=== PATIENT | female | born 1950 | race Two or more races ===

== ENCOUNTER 2017-05-12 09:41 | Inpatient (IN) | payer MEDICARE, MEDICAID ==
[2017-05-12] VITALS (22 sets, daily range): BP systolic 142–211; BP diastolic 66–101
[~2017-05-12] VITALS: Ht 152.4 cm; Wt 75.3 kg
[2017-05-12] MEDS ORDERED: Nitroglycerin 50mg/250ml btl 250 ML IV ONE ×2 (10:00)
--- NOTE | 2017-05-12 10:00 | Emergency Room Report ---
History of Present Illness General Chief Complaint: Dyspnea/Respdistress Source: Patient, EMS Present Illness HPI 67-year-old female with pmhx of HTN, DM, CHF p/w SOB for 2 days. Per EMS patient was hypoxic at 84 and room air, 100% with nonrebreather SOB was gradual in onset, occurs both at rest and on exertion, worsened with laying flat. Associated with b/l lower extremity edema for a long time. Denies chest pain. Patient has experienced this SOB in the past and states it feels similar to previous CHF exacerbations. Patient takes 40 mg of Lasix daily and has been compliant with medications. Denies fever, chills, cough, n/v/d. Unknown last echocardiogram EMS gave 6 nitroglycerin in the field, patient feels better Allergies: Coded Allergies: No Known Allergies (Unverified , 05/12/17) Patient History Past Medical History: see triage record Past Surgical History: none Pertinent Family History: none Reviewed Nursing Documentation: PMH: Agreed, PSxH: Agreed Nursing Documentation-PMH Past Medical History: No History, Except For Hx Cardiac Problems: Yes - CHF Hx Diabetes: Yes Review of Systems All Other Systems: negative except mentioned in HPI Physical Exam Vital Signs Date Time Temp Pulse Resp B/P (MAP) Pulse Ox O2 Delivery O2 Flow Rate FiO2 05/12/17 09:35 98.2 65 24 190/62 91 Non-Rebreather 15.0 Sp02 EP Interpretation: reviewed, abnormal - 84 on room air, 91 on 100% nonrebreather General Appearance: alert, GCS 15, non-toxic, other - Middle aged female, appears short of breath, speaking in 3-4 word sentences Head: normocephalic, atraumatic Eyes: bilateral eye normal inspection, bilateral eye PERRL, bilateral eye EOMI ENT: normal ENT inspection, normal pharynx, normal voice, moist mucus membranes Neck: normal inspection, full range of motion, supple Respiratory: no retraction, no wheezing, speaking full sentences, other - Decreased breath sounds/crackles bilateral lung bases, tachypnea, chest symmetrical Cardiovascular #1: normal inspection, regular rate, rhythm, no edema, normal capillary refill Cardiovascular #2: 2+ radial (R), 2+ radial (L) Gastrointestinal: normal inspection, non tender, soft, non-distended, no guarding Musculoskeletal: back normal, normal range of motion, non-tender, swelling, other - 2+ pitting edema bilateral lower extremities Neurologic: normal inspection, alert, oriented x3, responsive, motor strength/ tone normal, sensory intact, normal gait, speech normal Psychiatric: normal inspection, judgement/insight normal, memory normal Skin: normal inspection, normal color, no rash, warm/dry, well hydrated, normal turgor Procedures Critical Care Time Critical Care Time 40 minutes of CC time 59-year-old female with CHF complaining of shortness of breath VS: Toxic and tachypnea Airway patent PLAN: IV access, labs including troponin, nitro drip, BiPAP Anticipate admission to ICU CC time also includes review of labs, review of EMR, d/w hospitalist CC could include dosing of pressors, additional Abx CC time does not include procedures Medical Decision Making Diagnostic Impression: Primary Impression: Acute exacerbation of CHF (congestive heart failure) Additional Impressions: Respiratory failure with hypoxia Renal failure Anemia ER Course 67-year-old female with pmhx of HTN, DM, CHF p/w SOB for 2 days. DDX: CHF exacerbation, ACS, pneumonia, asthma/copd Plan: IV access, surveillance system monitor, O2 nasal cannula obtain basic labs including blood gas, troponin, BNP Nitro, lasix, Will consider BIPAP for persistent or worsening respiratory status Anticipate admission ER course: Patient is hypertensive at 190 systolic, nitro drip started BiPAP started upon arrival Patient has remained on the monitor. Patients condition remains critical Disposition: Patient to be admitted to ICU Patient requires inpatient admission for close monitoring of respiratory status/ continuation of BIPAP, further workup including serial troponin and EKGs, possible additional diuresis and monitoring of electrolytes. D/w hospitalist Dr Faustin who has accepted patient for admission Please note that this Emergency Department Report was dictated using [employer] technology software, occasionally this can lead to erroneous entry secondary to interpretation by the dictation equipment. Chest X-ray CXR: Ordered: Yes 1 view Indication: sob EP interpretation: Yes Interpretation: pulm vasc congestion, b/l pleural effusions Impression: CHF/volume overload Electronically signed by Lucinda Salcedo MD Laboratory Tests Test 05/12/17 09:50 05/12/17 11:00 White Blood Count 5.2 K/UL (4.8-10.8) Red Blood Count 2.54 M/UL (4.20-5.40) L Hemoglobin 7.8 G/DL (12.0-16.0) L Hematocrit 24.0 % (37.0-47.0) L Mean Corpuscular Volume 94 FL (80-99) Mean Corpuscular Hemoglobin 30.5 PG (27.0-31.0) Mean Corpuscular Hemoglobin Concent 32.4 G/DL (32.0-36.0) Red Cell Distribution Width 12.9 % (11.6-14.8) Platelet Count 179 K/UL (150-450) Mean Platelet Volume 6.4 FL (6.5-10.1) L Neutrophils (%) (Auto) % (45.0-75.0) Lymphocytes (%) (Auto) % (20.0-45.0) Monocytes (%) (Auto) % (1.0-10.0) Eosinophils (%) (Auto) % (0.0-3.0) Basophils (%) (Auto) % (0.0-2.0) Differential Total Cells Counted 100 Neutrophils % (Manual) 88 % (45-75) H Lymphocytes % (Manual) 6 % (20-45) L Monocytes % (Manual) 4 % (1-10) Eosinophils % (Manual) 1 % (0-3) Basophils % (Manual) 1 % (0-2) Band Neutrophils 0 % (0-8) Platelet Estimate Adequate Platelet Morphology Normal Red Blood Cell Morphology Normal Sodium Level 139 MMOL/L (136-145) Potassium Level 4.7 MMOL/L (3.5-5.1) Chloride Level 108 MMOL/L (98-107) H Carbon Dioxide Level 22 MMOL/L (21-32) Anion Gap 10 (5-15) Blood Urea Nitrogen 60 mg/dL (7-18) H Creatinine 3.5 MG/DL (0.55-1.30) H Estimate Glomerular Filtration Rate 13.0 mL/min (>60) Glucose Level 202 MG/DL (74-106) H Calcium Level 8.7 MG/DL (8.5-10.1) Total Bilirubin 0.5 MG/DL (0.2-1.0) Aspartate Amino Transferase (AST) 15 U/L (15-37) Alanine Aminotransferase (ALT) 12 U/L (12-78) Alkaline Phosphatase 117 U/L (46-116) H Total Creatine Kinase 191 U/L (26-308) Creatine Kinase MB 2.7 NG/ML (0.0-3.6) Creatine Kinase MB Relative Index 1.4 Troponin I 0.024 ng/mL (0.000-0.056) Pro-B-Type Natriuretic Peptide > 51815 (0-125) H Total Protein 7.0 G/DL (6.4-8.2) Albumin 3.0 G/DL (3.4-5.0) L Globulin 4.0 g/dL Albumin/Globulin Ratio 0.8 (1.0-2.7) L Arterial Blood pH 7.270 (7.350-7.450) Arterial Blood Partial Pressure CO2 46.8 mmHg (35.0-45.0) H Arterial Blood Partial Pressure O2 80.8 mmHg (75.0-100.0) Arterial Blood HCO3 21.4 mmol/L (22.0-26.0) L Arterial Blood Oxygen Saturation 93.6 % (92.0-98.0) Arterial Blood Base Excess -5.1 Faheem Test Positive EKG Diagnostic Results Rate: normal Rhythm: NSR ST Segments: other - T wave flattening I and V6 ASA given to the pt in ED: No Rhythm Strip Diag. Results EP Interpretation: yes Rate: 71 Rhythm: NSR, no PVC's, no ectopy Last Vital Signs Date Time Temp Pulse Resp B/P (MAP) Pulse Ox O2 Delivery O2 Flow Rate FiO2 05/12/17 09:35 98.2 65 24 190/62 91 Non-Rebreather 15.0 Disposition: ADMITTED INPATIENT Condition: Critical Lucinda Salcedo M.D. May 12, 2017 10:00
[2017-05-12 10:15] LABS: MEAN CORPUSCULAR HEMOGLOBIN 30.5 PG (27.0-31.0); MEAN CORPUSCULAR HGB CONC 32.4 G/DL (32.0-36.0); MEAN CORPUSCULAR VOLUME 94 FL (80-99); MEAN PLATELET VOLUME 6.4 FL (6.5-10.1); PLATELET COUNT 179 K/UL (150-450); RED BLOOD COUNT 2.54 M/UL (4.20-5.40); RED CELL DISTRIBUTION WIDTH 12.9 % (11.6-14.8); WHITE BLOOD COUNT 5.2 K/UL (4.8-10.8)
[2017-05-12 10:47] LABS: ALANINE AMINOTRANSFERASE 12 U/L (12-78); ALBUMIN/GLOBULIN RATIO 0.8 (1.0-2.7); ANION GAP 10 (5-15); ASPARTATE AMINO TRANSFERASE 15 U/L (15-37); CALCIUM 8.7 MG/DL (8.5-10.1); CARBON DIOXIDE 22 MMOL/L (21-32); CHLORIDE 108 MMOL/L (98-107); CKMB 2.7 NG/ML (0.0-3.6); CREATININE 3.5 MG/DL (0.55-1.30); POTASSIUM 4.7 MMOL/L (3.5-5.1); SODIUM 139 MMOL/L (136-145)
[2017-05-12 11:10] LABS: ABG BASE EXCESS -5.1; ABG PCO2 46.8 mmHg (35.0-45.0)
[2017-05-12 11:11] LABS: ABG ALLEN TEST POSITIVE
[2017-05-12] MEDS ORDERED: NORMODYNE300 MG ORAL (11:44)
[2017-05-12 11:45] LABS: BAND NEUTROPHILS % (MANUAL) 0 % (0-8); BASOPHILS % (MANUAL) 1 % (0-2); EOSINOPHILS % (MANUAL) 1 % (0-3); LYMPHOCYTES % (MANUAL) 6 % (20-45); NEUTROPHILS % (MANUAL) 88 % (45-75); PLATELET ESTIMATE ADEQUATE; PLATELET MORPHOLOGY NORMAL; TOTAL CELLS COUNTED 100
[2017-05-12] MEDS ORDERED: LIPITOR80 MG ORAL (11:49)
[2017-05-12] MEDS ORDERED: SYNTHROID137 MCG ORAL (11:49)
[2017-05-12] MEDS ORDERED: NEURONTIN300 MG ORAL (11:50)
[2017-05-12] MEDS ORDERED: FUROSEMIDE40 MG/5 ML ORAL (11:51)
[2017-05-12] MEDS ORDERED: LASIX20 M1 ORAL (11:52)
[2017-05-12] MEDS ORDERED: ISOSORBIDE MONO60 M1 PO (11:55)
[2017-05-12] MEDS ORDERED: HYDRALAZINE HCL25 M2 PO (11:56)
[2017-05-12] MEDS ORDERED: HydrALAZINE 25mg tab ORAL PRN ×2 (12:30→16:00)
--- NOTE | 2017-05-12 12:55 | Infectious Diseases Prog Note ---
Assessment/Plan Problems: (1) Pneumonia Assessment & Plan: complicated with B/L pleural effusion, will start cefepime and clindamycin empirically, and send sputum culture , and blood culture to rule out bacteremia (2) Acute exacerbation of CHF (congestive heart failure) Assessment & Plan: recommend diuresis , and cardiac eval (3) Respiratory failure with hypoxia Assessment & Plan: due to the above, BIBAP, recommend pulmonary consult , monitor ABG and CXR (4) Renal failure Assessment & Plan: unclear whether acute or chronic , recommend renal eval, avoid nephrotoxic meds , monitor UOP (5) UTI (urinary tract infection) Assessment & Plan: on cefepime already, will send urine culture Subjective Allergies: Coded Allergies: No Known Allergies (Unverified , 05/12/17) Objective Vital Signs Last 24 Hour Vital Signs Date Time Temp Pulse Resp B/P (MAP) Pulse Ox O2 Delivery O2 Flow Rate FiO2 05/12/17 12:05 98.3 69 15 205/84 100 Bi-pap 15.0 80 05/12/17 11:28 72 19 99 Facial 80 05/12/17 11:03 98.2 66 9 142/101 100 Bi-pap 15.0 80 05/12/17 10:42 98.2 67 18 195/84 100 Bi-pap 15.0 80 05/12/17 09:58 190/61 05/12/17 09:57 71 18 Bi-pap 80 05/12/17 09:52 70 17 100 Facial 80 05/12/17 09:45 68 15 Bi-pap 05/12/17 09:45 98.2 69 21 203/93 100 Bi-pap 05/12/17 09:35 98.2 65 24 190/62 91 Non-Rebreather 15.0 Height (Feet): 5 Weight (Pounds): 160 Laboratory Tests Test 05/12/17 09:50 05/12/17 11:00 White Blood Count 5.2 K/UL (4.8-10.8) Red Blood Count 2.54 M/UL (4.20-5.40) L Hemoglobin 7.8 G/DL (12.0-16.0) L Hematocrit 24.0 % (37.0-47.0) L Mean Corpuscular Volume 94 FL (80-99) Mean Corpuscular Hemoglobin 30.5 PG (27.0-31.0) Mean Corpuscular Hemoglobin Concent 32.4 G/DL (32.0-36.0) Red Cell Distribution Width 12.9 % (11.6-14.8) Platelet Count 179 K/UL (150-450) Mean Platelet Volume 6.4 FL (6.5-10.1) L Neutrophils (%) (Auto) % (45.0-75.0) Lymphocytes (%) (Auto) % (20.0-45.0) Monocytes (%) (Auto) % (1.0-10.0) Eosinophils (%) (Auto) % (0.0-3.0) Basophils (%) (Auto) % (0.0-2.0) Differential Total Cells Counted 100 Neutrophils % (Manual) 88 % (45-75) H Lymphocytes % (Manual) 6 % (20-45) L Monocytes % (Manual) 4 % (1-10) Eosinophils % (Manual) 1 % (0-3) Basophils % (Manual) 1 % (0-2) Band Neutrophils 0 % (0-8) Platelet Estimate Adequate Platelet Morphology Normal Red Blood Cell Morphology Normal Sodium Level 139 MMOL/L (136-145) Potassium Level 4.7 MMOL/L (3.5-5.1) Chloride Level 108 MMOL/L (98-107) H Carbon Dioxide Level 22 MMOL/L (21-32) Anion Gap 10 (5-15) Blood Urea Nitrogen 60 mg/dL (7-18) H Creatinine 3.5 MG/DL (0.55-1.30) H Estimat Glomerular Filtration Rate 13.0 mL/min (>60) Glucose Level 202 MG/DL (74-106) H Calcium Level 8.7 MG/DL (8.5-10.1) Total Bilirubin 0.5 MG/DL (0.2-1.0) Aspartate Amino Transf (AST/SGOT) 15 U/L (15-37) Alanine Aminotransferase (ALT/SGPT) 12 U/L (12-78) Alkaline Phosphatase 117 U/L (46-116) H Total Creatine Kinase 191 U/L (26-308) Creatine Kinase MB 2.7 NG/ML (0.0-3.6) Creatine Kinase MB Relative Index 1.4 Troponin I 0.024 ng/mL (0.000-0.056) Pro-B-Type Natriuretic Peptide > 50324 (0-125) H Total Protein 7.0 G/DL (6.4-8.2) Albumin 3.0 G/DL (3.4-5.0) L Globulin 4.0 g/dL Albumin/Globulin Ratio 0.8 (1.0-2.7) L Arterial Blood pH 7.270 (7.350-7.450) Arterial Blood Partial Pressure CO2 46.8 mmHg (35.0-45.0) H Arterial Blood Partial Pressure O2 80.8 mmHg (75.0-100.0) Arterial Blood HCO3 21.4 mmol/L (22.0-26.0) L Arterial Blood Oxygen Saturation 93.6 % (92.0-98.0) Arterial Blood Base Excess -5.1 Faheem Test Positive Current Medications Medications (Trade) Dose Ordered Sig/Toya Route PRN Reason Start Time Stop Time Status Last Admin Dose Admin Acetaminophen (Tylenol) 650 mg Q4H PRN ORAL Mild Pain/Temp > 100.5 05/12/17 12:30 06/11/17 12:29 UNV Atorvastatin Calcium (Lipitor) 80 mg BEDTIME ORAL 05/12/17 21:00 06/11/17 20:59 UNV Furosemide (Lasix) 20 mg BID ORAL 05/12/17 18:00 06/11/17 17:59 UNV Gabapentin (Neurontin) 300 mg BEDTIME ORAL 05/12/17 21:00 06/11/17 20:59 UNV Hydralazine HCl (Apresoline) 25 mg NEEDED ORAL 05/12/17 12:30 06/11/17 12:29 UNV Isosorbide Mononitrate (Imdur) 60 mg DAILY ORAL 05/13/17 09:00 06/12/17 08:59 UNV Labetalol HCl (Normodyne) 300 mg TID ORAL 05/12/17 13:00 06/11/17 12:59 UNV Levothyroxine Sodium (Synthroid) 137 mcg DAILY@0630 ORAL 05/13/17 06:30 06/12/17 06:29 UNV Nitroglycerin 250 ml @ 15 mls/hr ONCE ONCE IV 05/12/17 10:00 05/13/17 02:39 05/12/17 09:58 Anel Porras M.D. May 12, 2017 12:55
--- NOTE | 2017-05-12 13:40 | Consultation ---
Consult Note Assessment/Plan deict CHF resp failure HTN CKD DM HPLD hypothyroid AMADA CERVANTES May 12, 2017 13:40
--- NOTE | 2017-05-12 13:55 | Diagnostic Imaging Report ---
Indication: SOB Technique: One view of the chest Comparison: none Findings: The heart is markedly enlarged. There are bilateral pleural effusions, right greater than left. There is bilateral interstitial edema. Degenerative changes of the right shoulder are noted Impression: Findings compatible with congestive heart failure, with marked cardiomegaly, bilateral interstitial edema, and bilateral pleural effusions
[2017-05-12] MEDS: Clindamycin 600mg 50 ML IV SCH ×2 (14:25→22:14)
[2017-05-12] MEDS ORDERED: Cefepime HCl 2 GM in D5W 110 ML IVPB ONE (14:30)
--- NOTE | 2017-05-12 15:53 | Consultation ---
Consult Note Consult Note asked to eval for renal failure 67-year-old female with pmhx of HTN, DM, CHF p/w SOB for 2 days. Per EMS patient was hypoxic at 84 and room air, 100% with nonrebreather SOB was gradual in onset, occurs both at rest and on exertion, worsened with laying flat. Associated with b/l lower extremity edema for a long time. Denies chest pain. Patient has experienced this SOB in the past and states it feels similar to previous CHF exacerbations. Patient takes 40 mg of Lasix daily and has been compliant with medications. Denies fever, chills, cough, n/v/d. Unknown last echocardiogram EMS gave 6 nitroglycerin in the field, patient feels better Past Medical History: No History, Except For Hx Cardiac Problems: Yes - CHF Hx Diabetes: Yes discussed with daughter in room- examined- data reviewed Assessment/Plan status; Acute respiratory failure- likely CHF Renal failure, acute on Chronic Diabetic Nephropathy HTN Anemia Plan: Optimize cardiac and respiratory status giovanna keep BP and BS in check monitor renal parameters and Anemia OVLODYMYR Cortez May 12, 2017 15:53
[2017-05-12] MEDS: HydrALAZINE 25mg tab ORAL SCH ×2 (17:05→23:30)
[2017-05-12 17:48] LABS: APPEARANCE,URINE SLIGHTLY CLOUDY; KETONES,URINE NEGATIVE (NEGATIVE); LEUKOCYTE ESTERASE ,URINE 1+ (NEGATIVE); NITRITE,URINE NEGATIVE (NEGATIVE); PH,URINE 5 (4.5-8.0); PROTEIN,URINE 4+ (NEGATIVE); UROBILINOGEN,URINE NORMAL MG/DL (0.0-1.0)
[2017-05-12 17:55] LABS: AMORPHOUS SEDIMENT,UR FEW /LPF; BACTERIA,URINE MODERATE /HPF; SQUAMOUS EPITHELIAL CELL,UR OCCASIONAL /LPF (NONE/OCC)
[2017-05-12] MEDS: Nitroglycerin 50mg/250ml btl 250 ML IV SCH (19:24)
[2017-05-12] MEDS ORDERED: Morphine Sulfate 2mg/ml Inj IVP PRN (20:45)
[2017-05-12] MEDS: Atorvastatin 80mg tab ORAL SCH (20:49)
[2017-05-12] MEDS: Gabapentin 300 MG/6 ML Soln ORAL SCH (21:00)
--- NOTE | 2017-05-12 21:16 | Consultation ---
DATE OF CONSULTATION: INFECTIOUS DISEASES CONSULTATION REQUESTING PHYSICIAN: Makenna Daniel M..D REASON FOR CONSULTATION: Bilateral pulmonary infiltrate with pleural effusion, possible pneumonia. Recommendation for antibiotics therapy. HISTORY OF PRESENT ILLNESS: The patient is a 67-year-old female with past medical history significant for congestive heart failure and diabetes, was brought into [facility] emergency room for progressive shortness of breath and cough. The patient's symptom has been going on for the last two years. She was found to be hypoxemic via paramedics saturating 84% on room air, which improved to 100% with non-rebreathable mask. The patient complained of shortness of breath at rest and on exertion and it gets worse when she lay flat. She also developed lower extremity edema. The patient normally on Lasix 40 mg daily and has been compliant with her medication, but she is not sure why she developed this significant swelling and shortness of breath. She denied any fever or chills. She had cough, nonproductive. No nausea or vomiting. No diarrhea. No recent upper respiratory infection. No recent travel or sick contact. In the emergency room, chest x-ray showed bilateral pulmonary infiltration with pleural effusion, mainly due to congestive heart exacerbation, but could not rule out pneumonia. So, I was consulted by the primary provider for antibiotics treatment for possible pneumonia. PAST MEDICAL HISTORY: Significant for CHF, diabetes, and hypertension. PAST SURGICAL HISTORY: Negative. MEDICATIONS: The patient on Imdur, Synthroid, Lipitor, Neurontin, Lasix, labetalol, Tylenol, and hydralazine. ALLERGIES: No known drug allergy. SOCIAL HISTORY: She lives at home with family. 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 Denied using any drugs, tobacco, or alcohol. FAMILY HISTORY: Not contributory. REVIEW OF SYSTEMS: A 14-point of system reviewed were all negative apart from the one I mentioned above in my History and Physical. PHYSICAL EXAMINATION: GENERAL: Middle-aged female, obese, lying in bed, on BiPAP, in mild respiratory distress. VITAL SIGNS: Temperature 97.9 degrees, pulse 77, respirations 24, blood pressure 195/76, and pulse oximetry 100% on BiPAP with FiO2 of 80%. HEENT: Normocephalic and atraumatic. Pupils are reactive to light. Moist oral mucosa. No exudate. NECK: Supple. No lymphadenopathy. CARDIOVASCULAR: She is tachycardic. S1 and S2 normal. No murmur or gallop. LUNGS: She had diminished breathing sounds with crackles at the bases. Mildly tachypneic. ABDOMEN: Soft, obese, nontender, and nondistended. Positive bowel sounds. No hepatosplenomegaly. No ascites. EXTREMITIES: She had significant edema with right leg swelling worse than the left side. Pulse +1 distal pedal. SKIN: No rash or hives. LABORATORY AND DIAGNOSTIC DATA: Labs showed white count of 5.2, hemoglobin of 7.8 and platelet count of 179. BUN of 60 and creatinine of 3.5. AST of 15 and ALT of 12. Chest x-ray showed large heart with bilateral pleural effusion, right greater than left and bilateral interstitial edema. ASSESSMENT AND RECOMMENDATION: 1. Possible bilateral pneumonia, complicated with pleural effusion. We will start cefepime and clindamycin empiric treatment and send sputum culture and blood culture to rule out bacteremia. Continue oxygen and BiPAP for respiratory support. Monitor chest x-ray. 2. Acute exacerbation of congestive heart failure. Recommend diuresis and cardiac evaluation. 3. Acute respiratory failure with hypoxemia due to the above. Continue BiPAP. Recommend Pulmonary consult. Monitor ABG and chest x-ray. 4. Renal failure, unclear whether acute or chronic. Recommend renal evaluation. Avoid nephrotoxic medicine. Monitor urine output. Thank you for the consult. Infectious Diseases will continue to follow. Anel Porras M.D. DR: JESSICA JOB#: [id number] CC:
[2017-05-12 23:32] LABS: PATH BLOOD SMEAR/OMC SENT TO PATHOLOGIST
--- NOTE | 2017-05-12 23:46 | Consultation ---
DATE OF CONSULTATION: 05/12/2017 PULMONARY CONSULTATION CONSULTING PHYSICIAN: Phong Gusman M.D. ATTENDING PHYSICIAN: Makenna Daniel M.D. HISTORY OF PRESENT ILLNESS: This 67-year-old woman is admitted through the emergency department because of increasing shortness of breath. She had several days of shortness of breath. There is no high fever, cough, or sputum. She has been evaluated and found to have congestive heart failure and respiratory failure. She was put on BiPAP and given Lasix. She was severely hypertensive and nitroprusside drip was initiated. Admission was arranged. She was brought to the intensive care on BiPAP and I was called to see her in consultation. She was seen by infectious diseases who suggested possible pneumonia and started on antibiotics. PAST MEDICAL HISTORY: Hypertension, diabetes, congestive heart failure, chronic kidney disease with plans for dialysis to be initiated in the next month or so with placement of a fistula. She has hypothyroidism and hyperlipidemia as well. MEDICATIONS: Prior to admission, the patient was taking Lipitor, Lasix, Neurontin, hydralazine, Isordil, labetalol, and thyroxine. ALLERGIES: None. SOCIAL HISTORY: She does not drink or smoke. REVIEW OF SYSTEMS: Otherwise, unable to respond appropriately due to BiPAP mask and language barrier. PHYSICAL EXAMINATION: GENERAL: The patient is alert and responsive on BiPAP mask in the intensive care unit. VITAL SIGNS: Her vital signs are stable. Saturations are 100%. The patient is somewhat overweight. She is not in respiratory distress. SKIN: Warm and dry. HEENT: Head is normocephalic. NECK: The neck veins are not visible. CHEST: Decreased breath sounds in the bases. There is some egophony in the right base. CARDIAC: Rhythm is regular without murmur or gallop. ABDOMEN: Soft and nontender. Liver and spleen not enlarged. EXTREMITIES: There is 2+ edema, more on the right than the left leg. LABORATORY AND DIAGNOSTIC DATA: Chest x-ray shows bilateral effusions and vascular congestion. IMPRESSION: 1. Pulmonary edema and pleural effusions. 2. Respiratory failure. 3. Renal failure. 4. Hypertension with hypertensive heart disease. 5. Diabetes. 6. Hyperlipidemia. 7. Hypothyroidism. PLAN: The patient will be weaned off of BiPAP as tolerated. We will get an echocardiogram. Nephrology consultation would be appropriate. She will require diuresis. Thank you. Phong Gusman M.D. DR: MICHELLE JOB#: [id number] CC: Phong Gusman M.D.; Fax#: [phone] MAKENNA DANIEL M.D. ; FAX#: [phone]
[2017-05-13] VITALS (52 sets, daily range): BP systolic 148–197; BP diastolic 53–80
[2017-05-13] MEDS: Nitroglycerin 50mg/250ml btl 250 ML IV SCH ×5 (01:28→20:48)
[2017-05-13] MEDS: Levothyroxine 25mcg tab ORAL SCH (06:14)
[2017-05-13] MEDS: HydrALAZINE 25mg tab ORAL SCH (06:15)
[2017-05-13] MEDS: Clindamycin 600mg 50 ML IV SCH ×2 (06:21→13:36)
[2017-05-13 06:28] LABS: MEAN CORPUSCULAR HEMOGLOBIN 30.8 PG (27.0-31.0); MEAN CORPUSCULAR HGB CONC 32.7 G/DL (32.0-36.0); MEAN CORPUSCULAR VOLUME 94 FL (80-99); MEAN PLATELET VOLUME 7.1 FL (6.5-10.1); PLATELET COUNT 202 K/UL (150-450); RED BLOOD COUNT 2.27 M/UL (4.20-5.40); WHITE BLOOD COUNT 4.2 K/UL (4.8-10.8)
[2017-05-13 07:04] LABS: ALANINE AMINOTRANSFERASE 9 U/L (12-78); ALBUMIN/GLOBULIN RATIO 0.8 (1.0-2.7); ANION GAP 7 (5-15); ASPARTATE AMINO TRANSFERASE 13 U/L (15-37); CALCIUM 8.1 MG/DL (8.5-10.1); CARBON DIOXIDE 26 MMOL/L (21-32); CHLORIDE 105 MMOL/L (98-107); CREATININE 3.7 MG/DL (0.55-1.30); GLOMERULAR FILTRATION RATE 12.2 mL/min (>60); POTASSIUM 4.6 MMOL/L (3.5-5.1); SODIUM 138 MMOL/L (136-145); TOTAL PROTEIN 6.5 G/DL (6.4-8.2)
[2017-05-13 07:24] LABS: CHOLESTEROL 99 MG/DL (< 200); CHOLESTEROL/HDL RATIO 2.2 (3.3-4.4); CRP QUANT 0.5 mg/dL (0.00-0.90); FERRITIN 32 NG/ML (8-388); MAGNESIUM 1.9 MG/DL (1.8-2.4); PHOSPHORUS 5.5 MG/DL (2.5-4.9); THYROID STIMULATING HORMONE 5.192 uiU/mL (0.360-3.740); URIC ACID 8.1 MG/DL (2.6-7.2)
[2017-05-13 07:32] LABS: IRON 30 ug/dL (50-175); TOTAL IRON BINDING CAPACITY 256 ug/dL (250-450)
--- NOTE | 2017-05-13 07:51 | Cardiology Progress Note ---
Assessment/Plan Assessment/Plan The patient is seen and examined, full consult note will be dictated. Objective Last 24 Hour Vital Signs Date Time Temp Pulse Resp B/P (MAP) Pulse Ox O2 Delivery O2 Flow Rate FiO2 05/13/17 07:00 66 11 170/58 100 Nasal Cannula 3.0 05/13/17 06:31 188/67 05/13/17 06:30 64 11 188/74 100 Nasal Cannula 3.0 05/13/17 06:16 64 196/59 05/13/17 06:15 64 11 188/67 100 Nasal Cannula 3.0 05/13/17 06:15 196/59 05/13/17 06:00 65 11 160/65 100 Nasal Cannula 3.0 05/13/17 05:45 64 11 196/59 100 Nasal Cannula 3.0 05/13/17 05:30 65 11 160/65 100 Nasal Cannula 3.0 05/13/17 05:15 68 11 188/70 100 Nasal Cannula 3.0 05/13/17 05:00 68 11 197/69 100 Nasal Cannula 3.0 05/13/17 04:45 69 11 180/64 100 Nasal Cannula 3.0 05/13/17 04:30 65 11 171/77 100 Nasal Cannula 3.0 05/13/17 04:15 62 10 171/77 100 Nasal Cannula 3.0 05/13/17 04:00 64 05/13/17 04:00 98.1 62 10 171/75 100 Nasal Cannula 3.0 05/13/17 03:45 175/66 05/13/17 03:45 64 11 167/69 98 Nasal Cannula 3.0 05/13/17 03:30 67 11 155/80 98 Nasal Cannula 3.0 05/13/17 03:15 67 12 175/68 99 Nasal Cannula 3.0 05/13/17 03:00 65 12 175/66 99 Nasal Cannula 3.0 05/13/17 02:45 64 12 177/66 99 Nasal Cannula 3.0 05/13/17 02:30 65 12 170/76 99 Nasal Cannula 3.0 05/13/17 02:15 64 12 183/78 99 Nasal Cannula 3.0 05/13/17 02:00 63 12 176/76 99 Nasal Cannula 3.0 05/13/17 01:45 70 12 182/70 99 Nasal Cannula 3.0 05/13/17 01:30 65 12 155/72 99 Nasal Cannula 3.0 05/13/17 01:28 180/79 05/13/17 01:15 70 19 184/76 99 Nasal Cannula 3.0 05/13/17 01:00 70 19 180/79 99 Nasal Cannula 3.0 05/13/17 00:45 64 19 181/70 99 Nasal Cannula 3.0 05/13/17 00:30 64 19 177/66 99 Nasal Cannula 3.0 05/13/17 00:15 64 19 185/71 99 Nasal Cannula 3.0 05/13/17 00:00 98.1 64 19 176/80 99 Nasal Cannula 3.0 05/13/17 00:00 65 05/12/17 23:45 66 19 156/74 99 Nasal Cannula 3.0 05/12/17 23:30 167/88 05/12/17 23:30 70 19 167/72 99 Nasal Cannula 3.0 05/12/17 23:15 71 19 167/88 99 Nasal Cannula 3.0 05/12/17 23:00 67 15 176/80 99 Nasal Cannula 3.0 05/12/17 22:45 69 18 184/66 98 Nasal Cannula 3.0 05/12/17 22:30 69 16 179/79 92 Nasal Cannula 3.0 05/12/17 22:27 174/68 05/12/17 22:15 70 15 194/79 98 Nasal Cannula 3.0 05/12/17 22:14 72 172/68 05/12/17 22:00 70 15 194/79 98 Nasal Cannula 3.0 05/12/17 21:00 73 15 188/68 99 Nasal Cannula 3.0 05/12/17 20:00 71 12 184/76 99 Nasal Cannula 3.0 05/12/17 20:00 69 05/12/17 19:30 Nasal Cannula 3.0 32 05/12/17 19:30 95 Nasal Cannula 3.0 32 05/12/17 19:24 186/71 05/12/17 19:15 98.3 71 16 168/76 99 Nasal Cannula 3.0 05/12/17 19:00 70 14 186/71 99 Nasal Cannula 4.0 05/12/17 18:00 69 10 183/76 98 Nasal Cannula 4.0 05/12/17 17:05 181/85 05/12/17 17:00 69 15 181/85 98 Nasal Cannula 4.0 05/12/17 16:03 97.9 05/12/17 16:00 68 05/12/17 16:00 98.0 64 16 179/70 98 Nasal Cannula 4.0 05/12/17 15:00 70 15 180/79 97 Nasal Cannula 4.0 05/12/17 14:25 68 211/82 05/12/17 14:00 77 17 211/82 94 Nasal Cannula 4.0 05/12/17 13:15 97.9 77 24 195/76 100 Bi-pap 80 05/12/17 13:12 80 19 99 Facial 80 05/12/17 12:53 98.3 70 15 202/72 100 Bi-pap 15.0 80 05/12/17 12:05 98.3 69 15 205/84 100 Bi-pap 15.0 80 05/12/17 11:28 72 19 99 Facial 80 05/12/17 11:03 98.2 66 9 142/101 100 Bi-pap 15.0 80 05/12/17 10:42 98.2 67 18 195/84 100 Bi-pap 15.0 80 05/12/17 09:58 190/61 05/12/17 09:57 71 18 Bi-pap 80 05/12/17 09:52 70 17 100 Facial 80 05/12/17 09:45 68 15 Bi-pap 05/12/17 09:45 98.2 69 21 203/93 100 Bi-pap 05/12/17 09:35 98.2 65 24 190/62 91 Non-Rebreather 15.0 Laboratory Tests Test 05/12/17 09:50 05/12/17 11:00 05/12/17 16:00 05/13/17 04:45 White Blood Count 5.2 K/UL (4.8-10.8) 4.2 K/UL (4.8-10.8) L Red Blood Count 2.54 M/UL (4.20-5.40) L 2.27 M/UL (4.20-5.40) L Hemoglobin 7.8 G/DL (12.0-16.0) L 7.0 G/DL (12.0-16.0) L Hematocrit 24.0 % (37.0-47.0) L 21.4 % (37.0-47.0) L Mean Corpuscular Volume 94 FL (80-99) 94 FL (80-99) Mean Corpuscular Hemoglobin 30.5 PG (27.0-31.0) 30.8 PG (27.0-31.0) Mean Corpuscular Hemoglobin Concent 32.4 G/DL (32.0-36.0) 32.7 G/DL (32.0-36.0) Red Cell Distribution Width 12.9 % (11.6-14.8) 13.0 % (11.6-14.8) Platelet Count 179 K/UL (150-450) 202 K/UL (150-450) Mean Platelet Volume 6.4 FL (6.5-10.1) L 7.1 FL (6.5-10.1) Neutrophils (%) (Auto) % (45.0-75.0) % (45.0-75.0) Lymphocytes (%) (Auto) % (20.0-45.0) % (20.0-45.0) Monocytes (%) (Auto) % (1.0-10.0) % (1.0-10.0) Eosinophils (%) (Auto) % (0.0-3.0) % (0.0-3.0) Basophils (%) (Auto) % (0.0-2.0) % (0.0-2.0) Differential Total Cells Counted 100 Neutrophils % (Manual) 88 % (45-75) H Pending Lymphocytes % (Manual) 6 % (20-45) L Pending Monocytes % (Manual) 4 % (1-10) Eosinophils % (Manual) 1 % (0-3) Basophils % (Manual) 1 % (0-2) Band Neutrophils 0 % (0-8) Platelet Estimate Adequate Pending Platelet Morphology Normal Pending Red Blood Cell Morphology Normal Sodium Level 139 MMOL/L (136-145) 138 MMOL/L (136-145) Potassium Level 4.7 MMOL/L (3.5-5.1) 4.6 MMOL/L (3.5-5.1) Chloride Level 108 MMOL/L (98-107) H 105 MMOL/L (98-107) Carbon Dioxide Level 22 MMOL/L (21-32) 26 MMOL/L (21-32) Anion Gap 10 (5-15) 7 (5-15) Blood Urea Nitrogen 60 mg/dL (7-18) H 64 mg/dL (7-18) H Creatinine 3.5 MG/DL (0.55-1.30) H 3.7 MG/DL (0.55-1.30) H Estimat Glomerular Filtration Rate 13.0 mL/min (>60) 12.2 mL/min (>60) Glucose Level 202 MG/DL (74-106) H 161 MG/DL (74-106) H Calcium Level 8.7 MG/DL (8.5-10.1) 8.1 MG/DL (8.5-10.1) L Total Bilirubin 0.5 MG/DL (0.2-1.0) 0.4 MG/DL (0.2-1.0) Aspartate Amino Transf (AST/SGOT) 15 U/L (15-37) 13 U/L (15-37) L Alanine Aminotransferase (ALT/SGPT) 12 U/L (12-78) 9 U/L (12-78) L Alkaline Phosphatase 117 U/L (46-116) H 101 U/L (46-116) Total Creatine Kinase 191 U/L (26-308) 198 U/L (26-308) Creatine Kinase MB 2.7 NG/ML (0.0-3.6) Creatine Kinase MB Relative Index 1.4 Troponin I 0.024 ng/mL (0.000-0.056) Pro-B-Type Natriuretic Peptide > 46424 (0-125) H > 50779 (0-125) H Total Protein 7.0 G/DL (6.4-8.2) 6.5 G/DL (6.4-8.2) Albumin 3.0 G/DL (3.4-5.0) L 2.8 G/DL (3.4-5.0) L Globulin 4.0 g/dL 3.7 g/dL Albumin/Globulin Ratio 0.8 (1.0-2.7) L 0.8 (1.0-2.7) L Arterial Blood pH 7.270 (7.350-7.450) Arterial Blood Partial Pressure CO2 46.8 mmHg (35.0-45.0) H Arterial Blood Partial Pressure O2 80.8 mmHg (75.0-100.0) Arterial Blood HCO3 21.4 mmol/L (22.0-26.0) L Arterial Blood Oxygen Saturation 93.6 % (92.0-98.0) Arterial Blood Base Excess -5.1 Faheem Test Positive Urine Color Pale yellow Urine Appearance Slightly cloudy Urine pH 5 (4.5-8.0) Urine Specific [place] 1.010 (1.005-1.035) Urine Protein 4+ (NEGATIVE) H Urine Glucose (UA) 2+ (NEGATIVE) H Urine Ketones Negative (NEGATIVE) Urine Occult Blood 1+ (NEGATIVE) H Urine Nitrite Negative (NEGATIVE) Urine Bilirubin Negative (NEGATIVE) Urine Urobilinogen Normal MG/DL (0.0-1.0) Urine Leukocyte Esterase 1+ (NEGATIVE) H Urine RBC 2-4 /HPF (0 - 2) H Urine WBC 5-10 /HPF (0 - 2) H Urine Squamous Epithelial Cells Occasional /LPF Urine Amorphous Sediment Few /LPF (NONE) H Urine Bacteria Moderate /HPF (NONE) H Urine Random Sodium 111 MEQ/L (20-110) H Hemoglobin A1c Pending Uric Acid 8.1 MG/DL (2.6-7.2) H Phosphorus Level 5.5 MG/DL (2.5-4.9) H Magnesium Level 1.9 MG/DL (1.8-2.4) Iron Level 30 ug/dL (50-175) L Total Iron Binding Capacity 256 ug/dL (250-450) Percent Iron Saturation 12 % (15-50) L Unsaturated Iron Binding 226 ug/dL (112-346) Ferritin 32 NG/ML (8-388) Gamma Glutamyl Transpeptidase Pending C-Reactive Protein, Quantitative 0.5 mg/dL (0.00-0.90) Triglycerides Level 139 MG/DL (0-200) Cholesterol Level 99 MG/DL (< 200) LDL Cholesterol 42 mg/dL (<100) HDL Cholesterol 45 MG/DL (40-60) Cholesterol/HDL Ratio 2.2 (3.3-4.4) L Vitamin B12 Level 93 PG/ML (193-986) L Folate Pending Thyroid Stimulating Hormone (TSH) 5.192 uiU/mL (0.360-3.740) NATI VOGEL May 13, 2017 07:51
[2017-05-13] MEDS ORDERED: Imdur 30mg tab ORAL SCH (09:00)
[2017-05-13 09:39] LABS: BAND NEUTROPHILS % (MANUAL) 0 % (0-8); BASOPHILS % (MANUAL) 0 % (0-2); EOSINOPHILS % (MANUAL) 1 % (0-3); HYPOCHROMASIA 1+; LYMPHOCYTES % (MANUAL) 24 % (20-45); NEUTROPHILS % (MANUAL) 69 % (45-75); PLATELET ESTIMATE ADEQUATE; PLATELET MORPHOLOGY NORMAL; TOTAL CELLS COUNTED 100
--- NOTE | 2017-05-13 09:43 | General Progress Note ---
Assessment/Plan Status: doing well - clinically Status Narrative clinically improved- Cr same Assessment/Plan status; Acute respiratory failure- likely CHF Renal failure, acute on Chronic Diabetic Nephropathy HTN Anemia: low B12- and low Iron Plan: adjust BP meds- B12 SQ po Folate IV Iron Optimize cardiac and respiratory status heredia keep BP and BS in check monitor renal parameters and Anemia yang 24 h urine in process transfuse Subjective ROS Limited/Unobtainable: No Constitutional: Reports: malaise, weakness Allergies: Coded Allergies: No Known Allergies (Unverified , 05/12/17) Objective Last 24 Hour Vital Signs Date Time Temp Pulse Resp B/P (MAP) Pulse Ox O2 Delivery O2 Flow Rate FiO2 05/13/17 09:30 62 11 189/63 100 Nasal Cannula 3.0 05/13/17 09:02 176/64 05/13/17 09:00 66 15 148/62 99 Nasal Cannula 3.0 05/13/17 08:30 63 10 177/69 100 Nasal Cannula 3.0 05/13/17 08:00 98.2 61 8 169/65 100 Nasal Cannula 3.0 05/13/17 07:35 99 Nasal Cannula 3.0 32 05/13/17 07:35 Nasal Cannula 3.0 32 05/13/17 07:30 65 11 179/63 100 Nasal Cannula 3.0 05/13/17 07:15 65 10 180/71 100 Nasal Cannula 3.0 05/13/17 07:00 66 11 170/58 100 Nasal Cannula 3.0 05/13/17 06:31 188/67 05/13/17 06:30 64 11 188/74 100 Nasal Cannula 3.0 05/13/17 06:16 64 196/59 05/13/17 06:15 64 11 188/67 100 Nasal Cannula 3.0 05/13/17 06:15 196/59 05/13/17 06:00 65 11 160/65 100 Nasal Cannula 3.0 05/13/17 05:45 64 11 196/59 100 Nasal Cannula 3.0 05/13/17 05:30 65 11 160/65 100 Nasal Cannula 3.0 05/13/17 05:15 68 11 188/70 100 Nasal Cannula 3.0 05/13/17 05:00 68 11 197/69 100 Nasal Cannula 3.0 05/13/17 04:45 69 11 180/64 100 Nasal Cannula 3.0 05/13/17 04:30 65 11 171/77 100 Nasal Cannula 3.0 05/13/17 04:15 62 10 171/77 100 Nasal Cannula 3.0 05/13/17 04:00 64 05/13/17 04:00 98.1 62 10 171/75 100 Nasal Cannula 3.0 05/13/17 03:45 175/66 05/13/17 03:45 64 11 167/69 98 Nasal Cannula 3.0 05/13/17 03:30 67 11 155/80 98 Nasal Cannula 3.0 05/13/17 03:15 67 12 175/68 99 Nasal Cannula 3.0 05/13/17 03:00 65 12 175/66 99 Nasal Cannula 3.0 05/13/17 02:45 64 12 177/66 99 Nasal Cannula 3.0 05/13/17 02:30 65 12 170/76 99 Nasal Cannula 3.0 05/13/17 02:15 64 12 183/78 99 Nasal Cannula 3.0 05/13/17 02:00 63 12 176/76 99 Nasal Cannula 3.0 05/13/17 01:45 70 12 182/70 99 Nasal Cannula 3.0 05/13/17 01:30 65 12 155/72 99 Nasal Cannula 3.0 05/13/17 01:28 180/79 05/13/17 01:15 70 19 184/76 99 Nasal Cannula 3.0 05/13/17 01:00 70 19 180/79 99 Nasal Cannula 3.0 05/13/17 00:45 64 19 181/70 99 Nasal Cannula 3.0 05/13/17 00:30 64 19 177/66 99 Nasal Cannula 3.0 05/13/17 00:15 64 19 185/71 99 Nasal Cannula 3.0 05/13/17 00:00 98.1 64 19 176/80 99 Nasal Cannula 3.0 05/13/17 00:00 65 05/12/17 23:45 66 19 156/74 99 Nasal Cannula 3.0 05/12/17 23:30 167/88 05/12/17 23:30 70 19 167/72 99 Nasal Cannula 3.0 05/12/17 23:15 71 19 167/88 99 Nasal Cannula 3.0 05/12/17 23:00 67 15 176/80 99 Nasal Cannula 3.0 05/12/17 22:45 69 18 184/66 98 Nasal Cannula 3.0 05/12/17 22:30 69 16 179/79 92 Nasal Cannula 3.0 05/12/17 22:27 174/68 05/12/17 22:15 70 15 194/79 98 Nasal Cannula 3.0 05/12/17 22:14 72 172/68 05/12/17 22:00 70 15 194/79 98 Nasal Cannula 3.0 05/12/17 21:00 73 15 188/68 99 Nasal Cannula 3.0 05/12/17 20:00 71 12 184/76 99 Nasal Cannula 3.0 05/12/17 20:00 69 05/12/17 19:30 Nasal Cannula 3.0 32 05/12/17 19:30 95 Nasal Cannula 3.0 32 05/12/17 19:24 186/71 05/12/17 19:15 98.3 71 16 168/76 99 Nasal Cannula 3.0 05/12/17 19:00 70 14 186/71 99 Nasal Cannula 4.0 05/12/17 18:00 69 10 183/76 98 Nasal Cannula 4.0 05/12/17 17:05 181/85 05/12/17 17:00 69 15 181/85 98 Nasal Cannula 4.0 05/12/17 16:03 97.9 05/12/17 16:00 68 05/12/17 16:00 98.0 64 16 179/70 98 Nasal Cannula 4.0 05/12/17 15:00 70 15 180/79 97 Nasal Cannula 4.0 05/12/17 14:25 68 211/82 05/12/17 14:00 77 17 211/82 94 Nasal Cannula 4.0 05/12/17 13:15 97.9 77 24 195/76 100 Bi-pap 80 05/12/17 13:12 80 19 99 Facial 80 05/12/17 12:53 98.3 70 15 202/72 100 Bi-pap 15.0 80 05/12/17 12:05 98.3 69 15 205/84 100 Bi-pap 15.0 80 05/12/17 11:28 72 19 99 Facial 80 05/12/17 11:03 98.2 66 9 142/101 100 Bi-pap 15.0 80 05/12/17 10:42 98.2 67 18 195/84 100 Bi-pap 15.0 80 05/12/17 09:58 190/61 05/12/17 09:57 71 18 Bi-pap 80 05/12/17 09:52 70 17 100 Facial 80 05/12/17 09:45 68 15 Bi-pap 05/12/17 09:45 98.2 69 21 203/93 100 Bi-pap Intake and Output 05/13/17 05/14/17 19:00 07:00 Output Total 175 ml Balance -175 ml Output Urine Total 175 ml Laboratory Tests 05/12/17 09:50: White Blood Count 5.2, Red Blood Count 2.54L, Hemoglobin 7.8L, Hematocrit 24.0L , Mean Corpuscular Volume 94, Mean Corpuscular Hemoglobin 30.5, Mean Corpuscular Hemoglobin Concent 32.4, Red Cell Distribution Width 12.9, Platelet Count 179, Mean Platelet Volume 6.4L, Neutrophils (%) (Auto) , Lymphocytes (%) ( Auto) , Monocytes (%) (Auto) , Eosinophils (%) (Auto) , Basophils (%) (Auto) , Differential Total Cells Counted 100, Neutrophils % (Manual) 88H, Lymphocytes % (Manual) 6L, Monocytes % (Manual) 4, Eosinophils % (Manual) 1, Basophils % ( Manual) 1, Band Neutrophils 0, Platelet Estimate Adequate, Platelet Morphology Normal, Red Blood Cell Morphology Normal, Sodium Level 139, Potassium Level 4.7 , Chloride Level 108H, Carbon Dioxide Level 22, Anion Gap 10, Blood Urea Nitrogen 60H, Creatinine 3.5H, Estimat Glomerular Filtration Rate 13.0, Glucose Level 202H, Calcium Level 8.7, Total Bilirubin 0.5, Aspartate Amino Transf (AST/ SGOT) 15, Alanine Aminotransferase (ALT/SGPT) 12, Alkaline Phosphatase 117H, Total Creatine Kinase 191, Creatine Kinase MB 2.7, Creatine Kinase MB Relative Index 1.4, Troponin I 0.024, Pro-B-Type Natriuretic Peptide > 02669D, Total Protein 7.0, Albumin 3.0L, Globulin 4.0, Albumin/Globulin Ratio 0.8L 05/12/17 11:00: Arterial Blood pH 7.270L, Arterial Blood Partial Pressure CO2 46.8H, Arterial Blood Partial Pressure O2 80.8, Arterial Blood HCO3 21.4L, Arterial Blood Oxygen Saturation 93.6, Arterial Blood Base Excess -5.1, Faheem Test Positive 05/12/17 16:00: Urine Color Pale yellow, Urine Appearance Slightly cloudy, Urine pH 5, Urine Specific [place] 1.010, Urine Protein 4+H, Urine Glucose (UA) 2+H, Urine Ketones Negative, Urine Occult Blood 1+H, Urine Nitrite Negative, Urine Bilirubin Negative, Urine Urobilinogen Normal, Urine Leukocyte Esterase 1+H, Urine RBC 2-4H, Urine WBC 5-10H, Urine Squamous Epithelial Cells Occasional, Urine Amorphous Sediment FewH, Urine Bacteria ModerateH, Urine Random Sodium 111H 05/13/17 04:45: White Blood Count 4.2L, Red Blood Count 2.27L, Hemoglobin 7.0L, Hematocrit 21.4L , Mean Corpuscular Volume 94, Mean Corpuscular Hemoglobin 30.8, Mean Corpuscular Hemoglobin Concent 32.7, Red Cell Distribution Width 13.0, Platelet Count 202, Mean Platelet Volume 7.1, Neutrophils (%) (Auto) , Lymphocytes (%) ( Auto) , Monocytes (%) (Auto) , Eosinophils (%) (Auto) , Basophils (%) (Auto) , Differential Total Cells Counted 100, Neutrophils % (Manual) 69, Lymphocytes % ( Manual) 24, Monocytes % (Manual) 6, Eosinophils % (Manual) 1, Basophils % ( Manual) 0, Band Neutrophils 0, Platelet Estimate Adequate, Platelet Morphology Normal, Sodium Level 138, Potassium Level 4.6, Chloride Level 105, Carbon Dioxide Level 26, Anion Gap 7, Blood Urea Nitrogen 64H, Creatinine 3.7H, Estimat Glomerular Filtration Rate 12.2, Glucose Level 161H, Calcium Level 8.1L , Total Bilirubin 0.4, Aspartate Amino Transf (AST/SGOT) 13L, Alanine Aminotransferase (ALT/SGPT) 9L, Alkaline Phosphatase 101, Total Creatine Kinase 198, Pro-B-Type Natriuretic Peptide > 26979N, Total Protein 6.5, Albumin 2.8L, Globulin 3.7, Albumin/Globulin Ratio 0.8L, Hypochromasia 1+, Hemoglobin A1c [ Pending], Uric Acid 8.1H, Phosphorus Level 5.5H, Magnesium Level 1.9, Iron Level 30L, Total Iron Binding Capacity 256, Percent Iron Saturation 12L, Unsaturated Iron Binding 226, Ferritin 32, Gamma Glutamyl Transpeptidase [ Pending], C-Reactive Protein, Quantitative 0.5, Triglycerides Level 139, Cholesterol Level 99, LDL Cholesterol 42, HDL Cholesterol 45, Cholesterol/HDL Ratio 2.2L, Vitamin B12 Level 93L, Folate [Pending], Thyroid Stimulating Hormone (TSH) 5.192H Height (Feet): 5 Height (Inches): 0.00 Weight (Pounds): 160 General Appearance: no apparent distress Cardiovascular: normal rate Respiratory/Chest: decreased breath sounds Abdomen: distended Edema: 1+ Arm (L), 1+ Arm (R), 1+ Leg (L), 1+ Leg (R), 1+ Pedal (L), 1+ Pedal ( R), 1+ Generalized VOLODYMYR DOUGLAS May 13, 2017 09:43
[2017-05-13 10:18] LABS: HEMOGLOBIN A1C 7.2 % (4.5-6.5)
--- NOTE | 2017-05-13 10:52 | Diagnostic Imaging Report ---
Indication: Acute renal failure Technique: Grayscale and duplex images of the kidneys, retroperitoneum, and bladder were obtained. Comparison:None Findings: Right kidney measures 10.6 cm in length. Left kidney measures 11 cm in length. Both kidneys demonstrate mildly increased echogenicity. No hydronephrosis. No focal abnormality. Normal inferior vena cava. Bladder is empty, contains a Huffman catheter. Impression: Increased bilateral renal echogenicity, suggesting medical renal disease Negative for hydronephrosis Empty bladder, containing a Huffman catheter.
[2017-05-13] MEDS ORDERED: Vitamin B12 1000mcg/ml Inj SUBQ ONE (11:00)
--- NOTE | 2017-05-13 11:29 | Diagnostic Imaging Report ---
Indication: SOB Technique: One view of the chest Comparison: 05/12/2017 Findings: Interim improvement in previously noted interstitial congestion, although some interstitial congestion persists. There is decreased but persistent bilateral pleural fluid as well. The heart remains enlarged Impression: Improved but persistent bilateral interstitial edema and bilateral pleural effusions, over one day
--- NOTE | 2017-05-13 11:51 | Diagnostic Imaging Report ---
Indication: PAIN neck pain, difficulty breathing when lying flat Technique: 2 views of the neck with soft tissue technique Comparison: None Findings: No prevertebral soft tissue swelling. No definite epiglottic enlargement or hypopharyngeal distention or tracheal/laryngeal narrowing There are degenerative changes of the cervical spine incidentally noted Impression: No acute process
[2017-05-13] MEDS: HydrALAZINE 50mg tab ORAL SCH ×3 (12:18→22:15)
[2017-05-13] MEDS ORDERED: Cefepime 1gm/D5W 55ml IVPB SCH ×2 (14:30)
[2017-05-13] MEDS ORDERED: Vitamin B12 1000mcg/ml Inj IM ONE (14:30)
[2017-05-13] MEDS ORDERED: Norco 5mg/325mg tab ORAL PRN (14:45)
--- NOTE | 2017-05-13 15:08 | Consultation ---
History of Present Illness General Date patient seen: May 13, 2017 Chief Complaint: Dyspnea/Respdistress Present Illness Allergies: Coded Allergies: No Known Allergies (Unverified , 05/12/17) Medication History Scheduled Atorvastatin (Lipitor), 80 MG ORAL BEDTIME, (Reported) Furosemide* (Lasix*), 20 MG ORAL TWICE A DAY, (Reported) Gabapentin (Neurontin), 300 MG ORAL BEDTIME, (Reported) Hydralazine HCl (Hydralazine HCl), 25 MG PO THREE TIMES A DAY, (Reported) Labetalol HCl (Labetalol HCl), 300 MG ORAL EVERY 12 HOURS, (Reported) Levothyroxine Sodium (Synthroid), 137 MCG ORAL DAILY, (Reported) Miscellaneous Medications Isosorbide Mononitrate (Isosorbide Mononitrate Er), 60 MG PO, (Reported) Discontinued Medications Furosemide (Furosemide), 20 MG ORAL TWICE A DAY, (Reported) Discontinued Reason: Medication dose changed Patient History Healthcare decision maker Resuscitation status Full Code Advanced Directive on File Physical Exam Last 24 Hour Vital Signs Date Time Temp Pulse Resp B/P (MAP) Pulse Ox O2 Delivery O2 Flow Rate FiO2 05/13/17 14:00 66 18 188/61 100 Nasal Cannula 3.0 05/13/17 13:37 71 186/58 05/13/17 13:00 71 19 171/59 100 Nasal Cannula 3.0 05/13/17 12:30 68 17 169/60 98 Nasal Cannula 3.0 05/13/17 12:19 67 170/53 05/13/17 12:18 170/53 05/13/17 12:00 67 05/13/17 12:00 98.2 65 12 170/53 100 Nasal Cannula 3.0 05/13/17 11:30 68 13 185/64 98 Nasal Cannula 3.0 05/13/17 11:00 68 14 168/77 95 Nasal Cannula 3.0 05/13/17 10:58 168/77 05/13/17 10:30 68 8 192/65 100 Nasal Cannula 3.0 05/13/17 10:00 63 8 175/64 100 Nasal Cannula 3.0 05/13/17 09:30 62 11 189/63 100 Nasal Cannula 3.0 05/13/17 09:02 176/64 05/13/17 09:00 66 15 148/62 99 Nasal Cannula 3.0 05/13/17 08:30 63 10 177/69 100 Nasal Cannula 3.0 05/13/17 08:00 98.2 61 8 169/65 100 Nasal Cannula 3.0 05/13/17 08:00 62 05/13/17 07:35 99 Nasal Cannula 3.0 32 05/13/17 07:35 Nasal Cannula 3.0 32 05/13/17 07:30 65 11 179/63 100 Nasal Cannula 3.0 05/13/17 07:15 65 10 180/71 100 Nasal Cannula 3.0 05/13/17 07:00 66 11 170/58 100 Nasal Cannula 3.0 05/13/17 06:31 188/67 05/13/17 06:30 64 11 188/74 100 Nasal Cannula 3.0 05/13/17 06:16 64 196/59 05/13/17 06:15 64 11 188/67 100 Nasal Cannula 3.0 05/13/17 06:15 196/59 05/13/17 06:00 65 11 160/65 100 Nasal Cannula 3.0 05/13/17 05:45 64 11 196/59 100 Nasal Cannula 3.0 05/13/17 05:30 65 11 160/65 100 Nasal Cannula 3.0 05/13/17 05:15 68 11 188/70 100 Nasal Cannula 3.0 05/13/17 05:00 68 11 197/69 100 Nasal Cannula 3.0 05/13/17 04:45 69 11 180/64 100 Nasal Cannula 3.0 05/13/17 04:30 65 11 171/77 100 Nasal Cannula 3.0 05/13/17 04:15 62 10 171/77 100 Nasal Cannula 3.0 05/13/17 04:00 64 05/13/17 04:00 98.1 62 10 171/75 100 Nasal Cannula 3.0 05/13/17 03:45 175/66 05/13/17 03:45 64 11 167/69 98 Nasal Cannula 3.0 05/13/17 03:30 67 11 155/80 98 Nasal Cannula 3.0 05/13/17 03:15 67 12 175/68 99 Nasal Cannula 3.0 05/13/17 03:00 65 12 175/66 99 Nasal Cannula 3.0 05/13/17 02:45 64 12 177/66 99 Nasal Cannula 3.0 05/13/17 02:30 65 12 170/76 99 Nasal Cannula 3.0 05/13/17 02:15 64 12 183/78 99 Nasal Cannula 3.0 05/13/17 02:00 63 12 176/76 99 Nasal Cannula 3.0 05/13/17 01:45 70 12 182/70 99 Nasal Cannula 3.0 05/13/17 01:30 65 12 155/72 99 Nasal Cannula 3.0 05/13/17 01:28 180/79 05/13/17 01:15 70 19 184/76 99 Nasal Cannula 3.0 05/13/17 01:00 70 19 180/79 99 Nasal Cannula 3.0 05/13/17 00:45 64 19 181/70 99 Nasal Cannula 3.0 05/13/17 00:30 64 19 177/66 99 Nasal Cannula 3.0 05/13/17 00:15 64 19 185/71 99 Nasal Cannula 3.0 05/13/17 00:00 98.1 64 19 176/80 99 Nasal Cannula 3.0 05/13/17 00:00 65 05/12/17 23:45 66 19 156/74 99 Nasal Cannula 3.0 05/12/17 23:30 167/88 05/12/17 23:30 70 19 167/72 99 Nasal Cannula 3.0 05/12/17 23:15 71 19 167/88 99 Nasal Cannula 3.0 05/12/17 23:00 67 15 176/80 99 Nasal Cannula 3.0 05/12/17 22:45 69 18 184/66 98 Nasal Cannula 3.0 05/12/17 22:30 69 16 179/79 92 Nasal Cannula 3.0 05/12/17 22:27 174/68 05/12/17 22:15 70 15 194/79 98 Nasal Cannula 3.0 05/12/17 22:14 72 172/68 05/12/17 22:00 70 15 194/79 98 Nasal Cannula 3.0 05/12/17 21:00 73 15 188/68 99 Nasal Cannula 3.0 05/12/17 20:00 71 12 184/76 99 Nasal Cannula 3.0 05/12/17 20:00 69 05/12/17 19:30 Nasal Cannula 3.0 32 05/12/17 19:30 95 Nasal Cannula 3.0 32 05/12/17 19:24 186/71 05/12/17 19:15 98.3 71 16 168/76 99 Nasal Cannula 3.0 05/12/17 19:00 70 14 186/71 99 Nasal Cannula 4.0 05/12/17 18:00 69 10 183/76 98 Nasal Cannula 4.0 05/12/17 17:05 181/85 05/12/17 17:00 69 15 181/85 98 Nasal Cannula 4.0 05/12/17 16:03 97.9 05/12/17 16:00 68 05/12/17 16:00 98.0 64 16 179/70 98 Nasal Cannula 4.0 Intake and Output 05/13/17 05/14/17 19:00 07:00 Intake Total 890 ml Output Total 875 ml Balance 15 ml Intake Oral 400 ml IV Total 360 ml Other 130 ml Output Urine Total 875 ml Laboratory Tests Test 05/12/17 16:00 05/13/17 04:45 Urine Color Pale yellow Urine Appearance Slightly cloudy Urine pH 5 (4.5-8.0) Urine Specific [place] 1.010 (1.005-1.035) Urine Protein 4+ (NEGATIVE) H Urine Glucose (UA) 2+ (NEGATIVE) H Urine Ketones Negative (NEGATIVE) Urine Occult Blood 1+ (NEGATIVE) H Urine Nitrite Negative (NEGATIVE) Urine Bilirubin Negative (NEGATIVE) Urine Urobilinogen Normal MG/DL (0.0-1.0) Urine Leukocyte Esterase 1+ (NEGATIVE) H Urine RBC 2-4 /HPF (0 - 2) H Urine WBC 5-10 /HPF (0 - 2) H Urine Squamous Epithelial Cells Occasional /LPF Urine Amorphous Sediment Few /LPF (NONE) H Urine Bacteria Moderate /HPF (NONE) H Urine Random Sodium 111 MEQ/L (20-110) H White Blood Count 4.2 K/UL (4.8-10.8) L Red Blood Count 2.27 M/UL (4.20-5.40) L Hemoglobin 7.0 G/DL (12.0-16.0) L Hematocrit 21.4 % (37.0-47.0) L Mean Corpuscular Volume 94 FL (80-99) Mean Corpuscular Hemoglobin 30.8 PG (27.0-31.0) Mean Corpuscular Hemoglobin Concent 32.7 G/DL (32.0-36.0) Red Cell Distribution Width 13.0 % (11.6-14.8) Platelet Count 202 K/UL (150-450) Mean Platelet Volume 7.1 FL (6.5-10.1) Neutrophils (%) (Auto) % (45.0-75.0) Lymphocytes (%) (Auto) % (20.0-45.0) Monocytes (%) (Auto) % (1.0-10.0) Eosinophils (%) (Auto) % (0.0-3.0) Basophils (%) (Auto) % (0.0-2.0) Differential Total Cells Counted 100 Neutrophils % (Manual) 69 % (45-75) Lymphocytes % (Manual) 24 % (20-45) Monocytes % (Manual) 6 % (1-10) Eosinophils % (Manual) 1 % (0-3) Basophils % (Manual) 0 % (0-2) Band Neutrophils 0 % (0-8) Platelet Estimate Adequate Platelet Morphology Normal Hypochromasia 1+ Sodium Level 138 MMOL/L (136-145) Potassium Level 4.6 MMOL/L (3.5-5.1) Chloride Level 105 MMOL/L (98-107) Carbon Dioxide Level 26 MMOL/L (21-32) Anion Gap 7 (5-15) Blood Urea Nitrogen 64 mg/dL (7-18) H Creatinine 3.7 MG/DL (0.55-1.30) H Estimat Glomerular Filtration Rate 12.2 mL/min (>60) Glucose Level 161 MG/DL (74-106) H Hemoglobin A1c 7.2 % (4.5-6.5) H Uric Acid 8.1 MG/DL (2.6-7.2) H Calcium Level 8.1 MG/DL (8.5-10.1) L Phosphorus Level 5.5 MG/DL (2.5-4.9) H Magnesium Level 1.9 MG/DL (1.8-2.4) Iron Level 30 ug/dL (50-175) L Total Iron Binding Capacity 256 ug/dL (250-450) Percent Iron Saturation 12 % (15-50) L Unsaturated Iron Binding 226 ug/dL (112-346) Ferritin 32 NG/ML (8-388) Total Bilirubin 0.4 MG/DL (0.2-1.0) Gamma Glutamyl Transpeptidase 84 U/L (5-85) Aspartate Amino Transf (AST/SGOT) 13 U/L (15-37) L Alanine Aminotransferase (ALT/SGPT) 9 U/L (12-78) L Alkaline Phosphatase 101 U/L (46-116) Total Creatine Kinase 198 U/L (26-308) C-Reactive Protein, Quantitative 0.5 mg/dL (0.00-0.90) Pro-B-Type Natriuretic Peptide > 85160 (0-125) H Total Protein 6.5 G/DL (6.4-8.2) Albumin 2.8 G/DL (3.4-5.0) L Globulin 3.7 g/dL Albumin/Globulin Ratio 0.8 (1.0-2.7) L Triglycerides Level 139 MG/DL (0-200) Cholesterol Level 99 MG/DL (< 200) LDL Cholesterol 42 mg/dL (<100) HDL Cholesterol 45 MG/DL (40-60) Cholesterol/HDL Ratio 2.2 (3.3-4.4) L Vitamin B12 Level 93 PG/ML (193-986) L Folate Pending Thyroid Stimulating Hormone (TSH) 5.192 uiU/mL (0.360-3.740) Microbiology Date/Time Source Procedure Growth Status 05/12/17 16:00 Urine,Clean Catch Urine Culture - Preliminary Resulted Height (Feet): 5 Height (Inches): 0.00 Weight (Pounds): 160 Medications Current Medications Medications (Trade) Dose Ordered Sig/Toya Route PRN Reason Start Time Stop Time Status Last Admin Dose Admin Acetaminophen (Tylenol) 650 mg Q4H PRN ORAL Mild Pain/Temp > 100.5 05/12/17 12:30 06/11/17 12:29 05/12/17 15:04 Acetaminophen/ Hydrocodone Bitart ([place] 5/325) 1 tab Q4H PRN ORAL Mild Breakthrough Pain 05/13/17 14:45 05/20/17 14:44 Atorvastatin Calcium (Lipitor) 80 mg BEDTIME ORAL 05/12/17 21:00 06/11/17 20:59 05/12/17 20:49 Cefepime HCl 1 gm/ Dextrose 55 ml @ 110 mls/hr Q24H IVPB 05/13/17 14:30 05/20/17 14:29 05/13/17 14:31 Clindamycin HCl/ Dextrose 50 ml @ 100 mls/hr Q8HR IV 05/12/17 14:00 05/19/17 13:59 05/13/17 13:36 Clonidine HCl (Catapres) 0.1 mg Q4H PRN ORAL bp over syst 160 05/12/17 16:00 06/11/17 15:59 05/13/17 03:45 Epoetin Panchito (Procrit (for non ESRD use)) 10,000 units THU-THU-THU SUBQ 05/13/17 21:00 06/12/17 20:59 Folic Acid (Folate) 5 mg DAILY ORAL 05/13/17 11:00 06/12/17 10:59 05/13/17 10:54 Furosemide (Lasix) 40 mg EVERY 12 HOURS IV 05/12/17 21:00 06/11/17 20:59 05/13/17 09:01 Gabapentin (Neurontin) 300 mg BEDTIME ORAL 05/12/17 21:00 06/11/17 20:59 Hydralazine HCl (Apresoline) 50 mg Q6HR ORAL 05/13/17 12:00 06/12/17 11:59 05/13/17 12:18 Iron Sucrose 100 mg/Sodium Chloride 60 ml @ 240 mls/hr BEDTIME IV 05/13/17 21:00 05/17/17 21:14 Isosorbide Mononitrate (Imdur) 60 mg DAILY ORAL 05/13/17 09:00 06/12/17 08:59 05/13/17 09:02 Labetalol HCl (Normodyne) 300 mg Q8HR ORAL 05/12/17 14:00 06/11/17 13:59 05/13/17 13:37 Lansoprazole (Prevacid) 30 mg DAILY ORAL 05/12/17 16:00 06/11/17 15:59 05/13/17 09:01 Levothyroxine Sodium (Synthroid) 25 mcg DAILY@0630 ORAL 05/13/17 06:30 06/12/17 06:29 05/13/17 06:14 Levothyroxine Sodium (Synthroid) 112 mcg DAILY@0630 ORAL 05/13/17 06:30 06/12/17 06:29 05/13/17 06:14 Metolazone (Zaroxolyn) 5 mg DAILY@0830 ORAL 05/13/17 08:30 06/12/17 08:29 05/13/17 09:44 Morphine Sulfate (Morphine Sulfate) 2 mg Q4H PRN IVP For Pain Scale 4-10 05/12/17 20:45 05/19/17 20:44 05/12/17 21:30 Nifedipine (Procardia XL) 30 mg Q12HR ORAL 05/13/17 21:00 06/12/17 20:59 Nitroglycerin 250 ml @ 0 mls/hr Q24H IV 05/12/17 18:45 06/11/17 18:44 05/13/17 10:58 Assessment/Plan Assessment/Plan (1) Cervicalgia (2) Muscle spasm (3) Pneumonia (4) Pleural Effusion (5) Congestive heart failure see DICK Reyna May 13, 2017 15:08
--- NOTE | 2017-05-13 16:45 | Consultation ---
DATE OF CONSULTATION: 05/13/2017 CARDIOLOGY CONSULTATION CONSULTING PHYSICIAN: Zev Alfonso M.D. REFERRING PHYSICIAN: Makenna Daniel M.D. REASON FOR CONSULTATION: Management of shortness of breath. HISTORY OF PRESENT ILLNESS: This is a very unfortunate 67-year-old lady, who presents to the hospital with complaints of shortness of breath for about 2 days. According to the EMS, the patient was hypoxic, about 84% on room air. She was placed on non-rebreather mask at 15 liters/minute, which improved the saturation to 100%. The patient states that the shortness of breath has been going on for the past couple of days, progressively worsening, occurring both at rest and exertion and worse with supine position. There is also associated bilateral lower extremity edema. The patient has a history of congestive heart failure in the past. The details of that is unknown. This is the first hospitalization to this facility. She receives 40 mg of Lasix on a daily basis and she has been very compliant with her medication at home, which includes hydralazine, labetalol, and isosorbide. In the field, the patient also received nitroglycerin, which improved her condition. PAST MEDICAL HISTORY: History of congestive heart failure, the detail of which is unknown; history of diabetes mellitus; history of obesity; history of chronic kidney disease; hypertension; and hypothyroidism. PAST SURGICAL HISTORY: None. ALLERGIES: No known drug allergies. LIST OF MEDICATION AT HOME: 1. Atorvastatin 80 mg at bedtime. 2. Furosemide 20 mg p.o. twice daily. 3. Neurontin 300 mg at bedtime. 4. Hydralazine 25 mg p.o. daily. 5. Isosorbide mononitrate 60 mg p.o. daily. 6. Labetalol 300 mg q.12 h. 7. Levothyroxine 137 mcg p.o. daily. FAMILY HISTORY: No premature coronary artery disease in first-degree relatives. REVIEW OF SYSTEMS: HEENT: Denies any headache, diplopia, or blurred vision. CONSTITUTIONAL: Denies any fever, chills, night sweats, or weight loss. CARDIOVASCULAR: Complains of shortness of breath for about 2 days with 3 to 4 pillow orthopnea as well as paroxysmal nocturnal dyspnea, bilateral lower extremity edema. PULMONARY: Denies any cough, hemoptysis, or wheezing. GASTROINTESTINAL: Denies any nausea, vomiting, diarrhea, constipation, abdominal pain, or GI bleed. GENITOURINARY: Denies any hematuria, dysuria, or incontinence. NEUROLOGIC: Denies any motor dysfunction, sensory deficit, or altered speech. PHYSICAL EXAMINATION: VITAL SIGNS: On arrival to the hospital, blood pressure was 190/62, respirations of 24, pulse of 65, and O2 saturation 91% on non-rebreather 15 liters/minute. GENERAL: The patient is an obese, 67-year-old female, in no apparent respiratory distress, currently on nasal cannula oxygen. HEENT: Atraumatic and normocephalic. Pupils are equal, round, and reactive to light and accommodation. Extraocular muscles are intact. NECK: JVP is elevated about 10 to 15 cm. No carotid bruit. Carotid upstrokes 2+ bilaterally. CARDIOVASCULAR: Normal S1, S2. Regular rate and rhythm. There is a 2/6 mid systolic murmur at the left sternal border. There is no pericardial rub. PMI is at 4th intercostal space in the midclavicular line. LUNGS: Bibasilar crackles. ABDOMEN: Soft, nontender, and nondistended. No hepatosplenomegaly. Positive bowel sounds. EXTREMITIES: There is 2+ pitting edema bilaterally. LABORATORY FINDINGS: WBC 5.3, hemoglobin 7.8, hematocrit 24.0, and platelet count is 179,000. Chemistry shows sodium 139, potassium 4.7, chloride 108, bicarbonate 22, BUN 16, creatinine 3.5, glucose is 202, and calcium is 8.7. ProBNP was more than 35,000. DIAGNOSTIC DATA: Chest x-ray shows severe congestive heart failure with cardiomegaly, bilateral pleural effusion, right greater than left. A 12-lead electrocardiogram shows sinus rhythm at a rate of 70 with poor R-wave progression, may suggest prior anteroseptal wall infarct, age indeterminate. There is QT prolongation with QT interval of 498 likely due to electrolyte abnormalities associated with stage 5 CKD, otherwise, there are no acute ST and T-wave abnormalities. ASSESSMENT AND PLAN: The patient is a very pleasant 67-year-old female, seen in Cardiology consultation at the request of Dr. Daniel. The patient is seen in intensive care unit of the [facility]. 1. Dyspnea. This is due to acute heart failure. A 2D echocardiogram still pending. I would suspect that this might be an hypertensive cardiomyopathy with acute diastolic heart failure due to stage 5 chronic kidney disease. The shortness of breath is better with Lasix, but I still think that patient is hypervolemic. I would like to add metolazone 5 mg to the regimen. 2. Accelerated hypertension with refractory hypertension, now responding to cocktail of clonidine, beta-blockers, calcium- channel blockers, and loop diuretics. I would like to add metolazone. Discussed with Dr. Falk, who is in agreement. 3. Stage 5 chronic kidney disease. At the discretion of Dr. Falk, we will obtain 2D echocardiography for evidence of pericardial effusion. 4. History of diabetes mellitus. 5. Obesity. 6. We will obtain a lipid panel in a.m. as well. Total amount of time spent in the ICU of [facility] for evaluation of this patient was 45 minutes. I would like to thank, Dr. Daniel, for allowing me to participate in the care of this patient. Zev Alfonso M.D. DR: PETE JOB#: [id number] CC:
--- NOTE | 2017-05-13 16:53 | Pulmonology Progress Note ---
Assessment/Plan Assessment/Plan 1. Pulmonary edema and pleural effusions. 2. Respiratory failure. 3. Renal failure. 4. Hypertension with hypertensive heart disease. 5. Diabetes. 6. Hyperlipidemia. 7. Hypothyroidism. breathing well off BiPAP BP still very high CXR w improved edema, effusions may need dialysis soon disc w RN, Dr Alfonso Subjective Respiratory: Denies: shortness of breath Allergies: Coded Allergies: No Known Allergies (Unverified , 05/12/17) Objective Last 24 Hour Vital Signs Date Time Temp Pulse Resp B/P (MAP) Pulse Ox O2 Delivery O2 Flow Rate FiO2 05/13/17 16:00 98.5 78 14 172/69 100 Nasal Cannula 3.0 05/13/17 16:00 68 05/13/17 15:36 195/100 05/13/17 15:00 75 16 180/70 100 Nasal Cannula 3.0 05/13/17 14:00 66 18 188/61 100 Nasal Cannula 3.0 05/13/17 13:37 71 186/58 05/13/17 13:00 71 19 171/59 100 Nasal Cannula 3.0 05/13/17 12:30 68 17 169/60 98 Nasal Cannula 3.0 05/13/17 12:19 67 170/53 05/13/17 12:18 170/53 05/13/17 12:00 67 05/13/17 12:00 98.2 65 12 170/53 100 Nasal Cannula 3.0 05/13/17 11:30 68 13 185/64 98 Nasal Cannula 3.0 05/13/17 11:00 68 14 168/77 95 Nasal Cannula 3.0 05/13/17 10:58 168/77 05/13/17 10:30 68 8 192/65 100 Nasal Cannula 3.0 05/13/17 10:00 63 8 175/64 100 Nasal Cannula 3.0 05/13/17 09:30 62 11 189/63 100 Nasal Cannula 3.0 05/13/17 09:02 176/64 05/13/17 09:00 66 15 148/62 99 Nasal Cannula 3.0 05/13/17 08:30 63 10 177/69 100 Nasal Cannula 3.0 05/13/17 08:00 98.2 61 8 169/65 100 Nasal Cannula 3.0 05/13/17 08:00 62 05/13/17 07:35 99 Nasal Cannula 3.0 32 05/13/17 07:35 Nasal Cannula 3.0 32 05/13/17 07:30 65 11 179/63 100 Nasal Cannula 3.0 05/13/17 07:15 65 10 180/71 100 Nasal Cannula 3.0 05/13/17 07:00 66 11 170/58 100 Nasal Cannula 3.0 05/13/17 06:31 188/67 05/13/17 06:30 64 11 188/74 100 Nasal Cannula 3.0 05/13/17 06:16 64 196/59 05/13/17 06:15 64 11 188/67 100 Nasal Cannula 3.0 05/13/17 06:15 196/59 05/13/17 06:00 65 11 160/65 100 Nasal Cannula 3.0 05/13/17 05:45 64 11 196/59 100 Nasal Cannula 3.0 05/13/17 05:30 65 11 160/65 100 Nasal Cannula 3.0 05/13/17 05:15 68 11 188/70 100 Nasal Cannula 3.0 05/13/17 05:00 68 11 197/69 100 Nasal Cannula 3.0 05/13/17 04:45 69 11 180/64 100 Nasal Cannula 3.0 05/13/17 04:30 65 11 171/77 100 Nasal Cannula 3.0 05/13/17 04:15 62 10 171/77 100 Nasal Cannula 3.0 05/13/17 04:00 64 05/13/17 04:00 98.1 62 10 171/75 100 Nasal Cannula 3.0 05/13/17 03:45 175/66 05/13/17 03:45 64 11 167/69 98 Nasal Cannula 3.0 05/13/17 03:30 67 11 155/80 98 Nasal Cannula 3.0 05/13/17 03:15 67 12 175/68 99 Nasal Cannula 3.0 05/13/17 03:00 65 12 175/66 99 Nasal Cannula 3.0 05/13/17 02:45 64 12 177/66 99 Nasal Cannula 3.0 05/13/17 02:30 65 12 170/76 99 Nasal Cannula 3.0 05/13/17 02:15 64 12 183/78 99 Nasal Cannula 3.0 05/13/17 02:00 63 12 176/76 99 Nasal Cannula 3.0 05/13/17 01:45 70 12 182/70 99 Nasal Cannula 3.0 05/13/17 01:30 65 12 155/72 99 Nasal Cannula 3.0 05/13/17 01:28 180/79 05/13/17 01:15 70 19 184/76 99 Nasal Cannula 3.0 05/13/17 01:00 70 19 180/79 99 Nasal Cannula 3.0 05/13/17 00:45 64 19 181/70 99 Nasal Cannula 3.0 05/13/17 00:30 64 19 177/66 99 Nasal Cannula 3.0 05/13/17 00:15 64 19 185/71 99 Nasal Cannula 3.0 05/13/17 00:00 98.1 64 19 176/80 99 Nasal Cannula 3.0 05/13/17 00:00 65 05/12/17 23:45 66 19 156/74 99 Nasal Cannula 3.0 05/12/17 23:30 167/88 05/12/17 23:30 70 19 167/72 99 Nasal Cannula 3.0 05/12/17 23:15 71 19 167/88 99 Nasal Cannula 3.0 05/12/17 23:00 67 15 176/80 99 Nasal Cannula 3.0 05/12/17 22:45 69 18 184/66 98 Nasal Cannula 3.0 05/12/17 22:30 69 16 179/79 92 Nasal Cannula 3.0 05/12/17 22:27 174/68 05/12/17 22:15 70 15 194/79 98 Nasal Cannula 3.0 05/12/17 22:14 72 172/68 05/12/17 22:00 70 15 194/79 98 Nasal Cannula 3.0 05/12/17 21:00 73 15 188/68 99 Nasal Cannula 3.0 05/12/17 20:00 71 12 184/76 99 Nasal Cannula 3.0 05/12/17 20:00 69 05/12/17 19:30 Nasal Cannula 3.0 32 05/12/17 19:30 95 Nasal Cannula 3.0 32 05/12/17 19:24 186/71 05/12/17 19:15 98.3 71 16 168/76 99 Nasal Cannula 3.0 05/12/17 19:00 70 14 186/71 99 Nasal Cannula 4.0 05/12/17 18:00 69 10 183/76 98 Nasal Cannula 4.0 05/12/17 17:05 181/85 05/12/17 17:00 69 15 181/85 98 Nasal Cannula 4.0 Intake and Output 05/13/17 05/14/17 19:00 07:00 Intake Total 1085 ml Output Total 1225 ml Balance -140 ml Intake Oral 400 ml IV Total 555 ml Other 130 ml Output Urine Total 1225 ml General Appearance: no acute distress HEENT: atraumatic Respiratory/Chest: decreased breath sounds Cardiovascular: normal rate Microbiology Date/Time Source Procedure Growth Status 05/12/17 16:00 Urine,Clean Catch Urine Culture - Preliminary Resulted Laboratory Tests 05/13/17 04:45: White Blood Count 4.2L, Red Blood Count 2.27L, Hemoglobin 7.0L, Hematocrit 21.4L , Mean Corpuscular Volume 94, Mean Corpuscular Hemoglobin 30.8, Mean Corpuscular Hemoglobin Concent 32.7, Red Cell Distribution Width 13.0, Platelet Count 202, Mean Platelet Volume 7.1, Neutrophils (%) (Auto) , Lymphocytes (%) ( Auto) , Monocytes (%) (Auto) , Eosinophils (%) (Auto) , Basophils (%) (Auto) , Differential Total Cells Counted 100, Neutrophils % (Manual) 69, Lymphocytes % ( Manual) 24, Monocytes % (Manual) 6, Eosinophils % (Manual) 1, Basophils % ( Manual) 0, Band Neutrophils 0, Platelet Estimate Adequate, Platelet Morphology Normal, Hypochromasia 1+, Sodium Level 138, Potassium Level 4.6, Chloride Level 105, Carbon Dioxide Level 26, Anion Gap 7, Blood Urea Nitrogen 64H, Creatinine 3.7H, Estimat Glomerular Filtration Rate 12.2, Glucose Level 161H, Hemoglobin A1c 7.2H, Uric Acid 8.1H, Calcium Level 8.1L, Phosphorus Level 5.5H, Magnesium Level 1.9, Iron Level 30L, Total Iron Binding Capacity 256, Percent Iron Saturation 12L, Unsaturated Iron Binding 226, Ferritin 32, Total Bilirubin 0.4, Gamma Glutamyl Transpeptidase 84, Aspartate Amino Transf (AST/SGOT) 13L, Alanine Aminotransferase (ALT/SGPT) 9L, Alkaline Phosphatase 101, Total Creatine Kinase 198, C-Reactive Protein, Quantitative 0.5, Pro-B-Type Natriuretic Peptide > [id number], Total Protein 6.5, Albumin 2.8L, Globulin 3.7, Albumin/Globulin Ratio 0.8L, Triglycerides Level 139, Cholesterol Level 99, LDL Cholesterol 42, HDL Cholesterol 45, Cholesterol/HDL Ratio 2.2L, Vitamin B12 Level 93L, Folate [Pending], Thyroid Stimulating Hormone (TSH) 5.192H Current Medications Medications (Trade) Dose Ordered Sig/Toya Route PRN Reason Start Time Stop Time Status Last Admin Dose Admin Acetaminophen (Tylenol) 650 mg Q4H PRN ORAL Mild Pain/Temp > 100.5 05/12/17 12:30 06/11/17 12:29 05/12/17 15:04 Acetaminophen/ Hydrocodone Bitart ([place] 5/325) 1 tab Q4H PRN ORAL Mild Breakthrough Pain 05/13/17 14:45 05/20/17 14:44 Atorvastatin Calcium (Lipitor) 80 mg BEDTIME ORAL 05/12/17 21:00 06/11/17 20:59 05/12/17 20:49 Cefepime HCl 1 gm/ Dextrose 55 ml @ 110 mls/hr Q24H IVPB 05/13/17 14:30 05/20/17 14:29 05/13/17 14:31 Clindamycin HCl/ Dextrose 50 ml @ 100 mls/hr Q8HR IV 05/12/17 14:00 05/19/17 13:59 05/13/17 13:36 Clonidine HCl (Catapres) 0.1 mg Q4H PRN ORAL bp over syst 160 05/12/17 16:00 06/11/17 15:59 05/13/17 03:45 Epoetin Panchito (Procrit (for non ESRD use)) 10,000 units THU-THU-THU SUBQ 05/13/17 21:00 06/12/17 20:59 Folic Acid (Folate) 5 mg DAILY ORAL 05/13/17 11:00 06/12/17 10:59 05/13/17 10:54 Furosemide (Lasix) 40 mg EVERY 12 HOURS IV 05/12/17 21:00 06/11/17 20:59 05/13/17 09:01 Gabapentin (Neurontin) 300 mg BEDTIME ORAL 05/12/17 21:00 06/11/17 20:59 Hydralazine HCl (Apresoline) 50 mg Q6HR ORAL 05/13/17 12:00 06/12/17 11:59 05/13/17 12:18 Iron Sucrose 100 mg/Sodium Chloride 60 ml @ 240 mls/hr BEDTIME IV 05/13/17 21:00 05/17/17 21:14 Isosorbide Mononitrate (Imdur) 60 mg DAILY ORAL 05/13/17 09:00 06/12/17 08:59 05/13/17 09:02 Labetalol HCl (Normodyne) 300 mg Q8HR ORAL 05/12/17 14:00 06/11/17 13:59 05/13/17 13:37 Lansoprazole (Prevacid) 30 mg DAILY ORAL 05/12/17 16:00 06/11/17 15:59 05/13/17 09:01 Levothyroxine Sodium (Synthroid) 25 mcg DAILY@0630 ORAL 05/13/17 06:30 06/12/17 06:29 05/13/17 06:14 Levothyroxine Sodium (Synthroid) 112 mcg DAILY@0630 ORAL 05/13/17 06:30 06/12/17 06:29 05/13/17 06:14 Metolazone (Zaroxolyn) 5 mg DAILY@0830 ORAL 05/13/17 08:30 06/12/17 08:29 05/13/17 09:44 Morphine Sulfate (Morphine Sulfate) 2 mg Q4H PRN IVP For Pain Scale 4-10 05/12/17 20:45 05/19/17 20:44 05/12/17 21:30 Nifedipine (Procardia XL) 30 mg Q12HR ORAL 05/13/17 21:00 06/12/17 20:59 Nitroglycerin 250 ml @ 0 mls/hr Q24H IV 05/12/17 18:45 06/11/17 18:44 05/13/17 15:36 AMADA CERVANTES May 13, 2017 16:53
[2017-05-13] MEDS ORDERED: Tubing IV Secondary IV ONE (17:17)
[2017-05-13] MEDS ORDERED: NS 275ml ONE (17:17)
--- NOTE | 2017-05-13 17:31 | History and Physical Report ---
DATE OF ADMISSION: 05/12/2017 HISTORY OF PRESENT ILLNESS: The patient is being admitted for CHF exacerbation. The patient complains of shortness of breath. The patient also has pleural effusion, was on nitroglycerin drip and BiPAP, admitted to ICU. The patient also complains of productive cough with frothy saliva compatible with CHF exacerbation/pulmonary edema. The patient also complains of neck and shoulder pain and has some nausea as well. It is questionable whether the patient has a history of CAD or not. The patient is not a very good historian. The patient also complains of orthopnea and paroxysmal dyspnea. Denies chest pain. Denies heartburn. Denies constipation. PAST MEDICAL HISTORY: Hyperlipidemia, CHF, neuropathy, hypertension, hypothyroidism and degenerative joint disease. PAST SURGICAL HISTORY: No surgeries. ALLERGIES: No known allergies. MEDICATIONS: Lasix, gabapentin, hydralazine, isosorbide, labetalol and Levoxyl. FAMILY HISTORY: She does have history of diabetes and hypertension in the family. SOCIAL HISTORY: Denies history of smoking, alcohol, or illicit drugs. REVIEW OF SYSTEMS: HEENT: Denies headache, but has neck pain. RESPIRATORY: Reports shortness of breath, cough, paroxysmal nocturnal dyspnea, as well as orthopnea, which has been getting worse in the past couple of days. The patient has also frothy saliva coming out of her mouth and also has cough. GASTROINTESTINAL: Reports nausea. No vomiting. No constipation. No abdominal pain. EXTREMITIES: Does have shoulder and neck pain, which is chronic, has been getting worse lately. CENTRAL NERVOUS SYSTEM: No change in vision or speech pattern. Feels very weak. PHYSICAL EXAMINATION: VITAL SIGNS: Temperature is 98.2, pulse is 61, and blood pressure 169/65. HEENT: PERRLA. NECK: Range of motion intact in the neck. CHEST: Bibasilar rhonchi. CARDIOVASCULAR: Regular rate and rhythm. GASTROINTESTINAL: Soft. Positive bowel sounds. No organomegaly. EXTREMITIES: 1+ edema. Reflexes equal on both sides. Able to move her extremities. LABORATORY EVALUATION AND DIAGNOSTIC DATA: Chest x-ray shows pleural effusion. WBC of 5.2, hemoglobin of 7.8 and platelets of 179,000. The patient also has other abnormal values, namely, the vitamin B12 level is low. Hemoglobin is 7.8. Sodium 139, potassium 4.7, and also BUN is 60, creatinine 3.5, glucose 202, chloride 108, and carbon dioxide 22. BNP greater than 35,000. Vitamin B12 is 93. TSH of 5.19. Folate level is pending. ASSESSMENT AND PLAN: 1. Congestive heart failure exacerbation. 2. Shortness of breath. 3. Respiratory insufficiency. 4. Acute renal failure. 5. Severe anemia. 6. Vitamin B12 deficiency. 7. Pulmonary edema. I have asked Dr. De, Dr. Gusman, Dr. Alfonso, Dr. Falk, Dr. Porras, and Dr. Daniels to see the patient for the above-mentioned diagnoses and treatment. Makenna Daniel M.D. DR: LAURA JOB#: [id number] CC:
--- NOTE | 2017-05-13 17:54 | Infectious Diseases Prog Note ---
Assessment/Plan Problems: (1) Pneumonia Assessment & Plan: complicated with B/L pleural effusion, improving on CXR in one day , suspect fluids more than infectious etiology, will stop clindamycin , continue cefepime empirically to cover for UTI , await sputum culture , and blood culture to rule out bacteremia (2) Acute exacerbation of CHF (congestive heart failure) Assessment & Plan: improving , continue diuresis , cardiology is following (3) Respiratory failure with hypoxia Assessment & Plan: due to the above, improving, off BIBAP, now on nasal canula , pulmonary is following , monitor ABG and CXR (4) Renal failure Assessment & Plan: unclear whether acute or chronic , avoid nephrotoxic meds , monitor UOP (5) UTI (urinary tract infection) Assessment & Plan: on cefepime already, will send urine culture Subjective Constitutional: Reports: no symptoms HEENT: Reports: no symptoms Respiratory: Reports: shortness of breath, dry cough Breasts: Reports: no symptoms Cardiovascular: Reports: no symptoms Gastrointestinal/Abdominal: Reports: no symptoms Genitourinary: Reports: no symptoms Neurologic: Reports: no symptoms Psychiatric: Reports: no symptoms Skin: Reports: no symptoms Endocrine: Reports: no symptoms Hematologic: Reports: no symptoms Musculoskeletal: Reports: no symptoms Allergies: Coded Allergies: No Known Allergies (Unverified , 05/12/17) Objective Vital Signs Last 24 Hour Vital Signs Date Time Temp Pulse Resp B/P (MAP) Pulse Ox O2 Delivery O2 Flow Rate FiO2 05/13/17 17:48 187/58 05/13/17 17:47 187/58 05/13/17 17:00 66 15 181/56 100 Nasal Cannula 3.0 05/13/17 16:00 98.5 78 14 172/69 100 Nasal Cannula 3.0 05/13/17 16:00 68 05/13/17 15:36 195/100 05/13/17 15:00 75 16 180/70 100 Nasal Cannula 3.0 05/13/17 14:00 66 18 188/61 100 Nasal Cannula 3.0 05/13/17 13:37 71 186/58 05/13/17 13:00 71 19 171/59 100 Nasal Cannula 3.0 05/13/17 12:30 68 17 169/60 98 Nasal Cannula 3.0 05/13/17 12:19 67 170/53 10/11/17 12:18 170/53 05/13/17 12:00 67 05/13/17 12:00 98.2 65 12 170/53 100 Nasal Cannula 3.0 05/13/17 11:30 68 13 185/64 98 Nasal Cannula 3.0 05/13/17 11:00 68 14 168/77 95 Nasal Cannula 3.0 05/13/17 10:58 168/77 05/13/17 10:30 68 8 192/65 100 Nasal Cannula 3.0 05/13/17 10:00 63 8 175/64 100 Nasal Cannula 3.0 05/13/17 09:30 62 11 189/63 100 Nasal Cannula 3.0 05/13/17 09:02 176/64 05/13/17 09:00 66 15 148/62 99 Nasal Cannula 3.0 05/13/17 08:30 63 10 177/69 100 Nasal Cannula 3.0 05/13/17 08:00 98.2 61 8 169/65 100 Nasal Cannula 3.0 05/13/17 08:00 62 05/13/17 07:35 99 Nasal Cannula 3.0 32 05/13/17 07:35 Nasal Cannula 3.0 32 05/13/17 07:30 65 11 179/63 100 Nasal Cannula 3.0 05/13/17 07:15 65 10 180/71 100 Nasal Cannula 3.0 05/13/17 07:00 66 11 170/58 100 Nasal Cannula 3.0 05/13/17 06:31 188/67 05/13/17 06:30 64 11 188/74 100 Nasal Cannula 3.0 05/13/17 06:16 64 196/59 05/13/17 06:15 64 11 188/67 100 Nasal Cannula 3.0 05/13/17 06:15 196/59 05/13/17 06:00 65 11 160/65 100 Nasal Cannula 3.0 05/13/17 05:45 64 11 196/59 100 Nasal Cannula 3.0 05/13/17 05:30 65 11 160/65 100 Nasal Cannula 3.0 05/13/17 05:15 68 11 188/70 100 Nasal Cannula 3.0 05/13/17 05:00 68 11 197/69 100 Nasal Cannula 3.0 05/13/17 04:45 69 11 180/64 100 Nasal Cannula 3.0 05/13/17 04:30 65 11 171/77 100 Nasal Cannula 3.0 05/13/17 04:15 62 10 171/77 100 Nasal Cannula 3.0 05/13/17 04:00 64 05/13/17 04:00 98.1 62 10 171/75 100 Nasal Cannula 3.0 05/13/17 03:45 175/66 05/13/17 03:45 64 11 167/69 98 Nasal Cannula 3.0 05/13/17 03:30 67 11 155/80 98 Nasal Cannula 3.0 05/13/17 03:15 67 12 175/68 99 Nasal Cannula 3.0 05/13/17 03:00 65 12 175/66 99 Nasal Cannula 3.0 05/13/17 02:45 64 12 177/66 99 Nasal Cannula 3.0 05/13/17 02:30 65 12 170/76 99 Nasal Cannula 3.0 05/13/17 02:15 64 12 183/78 99 Nasal Cannula 3.0 05/13/17 02:00 63 12 176/76 99 Nasal Cannula 3.0 05/13/17 01:45 70 12 182/70 99 Nasal Cannula 3.0 05/13/17 01:30 65 12 155/72 99 Nasal Cannula 3.0 05/13/17 01:28 180/79 05/13/17 01:15 70 19 184/76 99 Nasal Cannula 3.0 05/13/17 01:00 70 19 180/79 99 Nasal Cannula 3.0 05/13/17 00:45 64 19 181/70 99 Nasal Cannula 3.0 05/13/17 00:30 64 19 177/66 99 Nasal Cannula 3.0 05/13/17 00:15 64 19 185/71 99 Nasal Cannula 3.0 05/13/17 00:00 98.1 64 19 176/80 99 Nasal Cannula 3.0 05/13/17 00:00 65 05/12/17 23:45 66 19 156/74 99 Nasal Cannula 3.0 05/12/17 23:30 167/88 05/12/17 23:30 70 19 167/72 99 Nasal Cannula 3.0 05/12/17 23:15 71 19 167/88 99 Nasal Cannula 3.0 05/12/17 23:00 67 15 176/80 99 Nasal Cannula 3.0 05/12/17 22:45 69 18 184/66 98 Nasal Cannula 3.0 05/12/17 22:30 69 16 179/79 92 Nasal Cannula 3.0 05/12/17 22:27 174/68 05/12/17 22:15 70 15 194/79 98 Nasal Cannula 3.0 05/12/17 22:14 72 172/68 05/12/17 22:00 70 15 194/79 98 Nasal Cannula 3.0 05/12/17 21:00 73 15 188/68 99 Nasal Cannula 3.0 05/12/17 20:00 71 12 184/76 99 Nasal Cannula 3.0 05/12/17 20:00 69 05/12/17 19:30 Nasal Cannula 3.0 32 05/12/17 19:30 95 Nasal Cannula 3.0 32 05/12/17 19:24 186/71 05/12/17 19:15 98.3 71 16 168/76 99 Nasal Cannula 3.0 05/12/17 19:00 70 14 186/71 99 Nasal Cannula 4.0 05/12/17 18:00 69 10 183/76 98 Nasal Cannula 4.0 Height (Feet): 5 Height (Inches): 0.00 Weight (Pounds): 160 General Appearance: WD/WN, no acute distress HEENT: normocephalic, atraumatic, anicteric, mucous membranes moist, PERRL Respiratory/Chest: chest wall non-tender, normal breath sounds, no respiratory distress, no accessory muscle use, decreased breath sounds, crackles/rales Cardiovascular: normal peripheral pulses, normal rate, regular rhythm, no gallop/murmur, no JVD Abdomen: normal bowel sounds, soft, non tender, no organomegaly, non distended , no mass, no scars Extremities: no cyanosis, no clubbing, other - edema Skin: no rash, no lesions, no ulcers Microbiology Date/Time Source Procedure Growth Status 05/12/17 16:00 Urine,Clean Catch Urine Culture - Preliminary Resulted Laboratory Tests Test 05/13/17 04:45 White Blood Count 4.2 K/UL (4.8-10.8) L Red Blood Count 2.27 M/UL (4.20-5.40) L Hemoglobin 7.0 G/DL (12.0-16.0) L Hematocrit 21.4 % (37.0-47.0) L Mean Corpuscular Volume 94 FL (80-99) Mean Corpuscular Hemoglobin 30.8 PG (27.0-31.0) Mean Corpuscular Hemoglobin Concent 32.7 G/DL (32.0-36.0) Red Cell Distribution Width 13.0 % (11.6-14.8) Platelet Count 202 K/UL (150-450) Mean Platelet Volume 7.1 FL (6.5-10.1) Neutrophils (%) (Auto) % (45.0-75.0) Lymphocytes (%) (Auto) % (20.0-45.0) Monocytes (%) (Auto) % (1.0-10.0) Eosinophils (%) (Auto) % (0.0-3.0) Basophils (%) (Auto) % (0.0-2.0) Differential Total Cells Counted 100 Neutrophils % (Manual) 69 % (45-75) Lymphocytes % (Manual) 24 % (20-45) Monocytes % (Manual) 6 % (1-10) Eosinophils % (Manual) 1 % (0-3) Basophils % (Manual) 0 % (0-2) Band Neutrophils 0 % (0-8) Platelet Estimate Adequate Platelet Morphology Normal Hypochromasia 1+ Sodium Level 138 MMOL/L (136-145) Potassium Level 4.6 MMOL/L (3.5-5.1) Chloride Level 105 MMOL/L (98-107) Carbon Dioxide Level 26 MMOL/L (21-32) Anion Gap 7 (5-15) Blood Urea Nitrogen 64 mg/dL (7-18) H Creatinine 3.7 MG/DL (0.55-1.30) H Estimat Glomerular Filtration Rate 12.2 mL/min (>60) Glucose Level 161 MG/DL (74-106) H Hemoglobin A1c 7.2 % (4.5-6.5) H Uric Acid 8.1 MG/DL (2.6-7.2) H Calcium Level 8.1 MG/DL (8.5-10.1) L Phosphorus Level 5.5 MG/DL (2.5-4.9) H Magnesium Level 1.9 MG/DL (1.8-2.4) Iron Level 30 ug/dL (50-175) L Total Iron Binding Capacity 256 ug/dL (250-450) Percent Iron Saturation 12 % (15-50) L Unsaturated Iron Binding 226 ug/dL (112-346) Ferritin 32 NG/ML (8-388) Total Bilirubin 0.4 MG/DL (0.2-1.0) Gamma Glutamyl Transpeptidase 84 U/L (5-85) Aspartate Amino Transf (AST/SGOT) 13 U/L (15-37) L Alanine Aminotransferase (ALT/SGPT) 9 U/L (12-78) L Alkaline Phosphatase 101 U/L (46-116) Total Creatine Kinase 198 U/L (26-308) C-Reactive Protein, Quantitative 0.5 mg/dL (0.00-0.90) Pro-B-Type Natriuretic Peptide > 79028 (0-125) H Total Protein 6.5 G/DL (6.4-8.2) Albumin 2.8 G/DL (3.4-5.0) L Globulin 3.7 g/dL Albumin/Globulin Ratio 0.8 (1.0-2.7) L Triglycerides Level 139 MG/DL (0-200) Cholesterol Level 99 MG/DL (< 200) LDL Cholesterol 42 mg/dL (<100) HDL Cholesterol 45 MG/DL (40-60) Cholesterol/HDL Ratio 2.2 (3.3-4.4) L Vitamin B12 Level 93 PG/ML (193-986) L Folate Pending Thyroid Stimulating Hormone (TSH) 5.192 uiU/mL (0.360-3.740) Current Medications Medications (Trade) Dose Ordered Sig/Toya Route PRN Reason Start Time Stop Time Status Last Admin Dose Admin Acetaminophen (Tylenol) 650 mg Q4H PRN ORAL Mild Pain/Temp > 100.5 05/12/17 12:30 06/11/17 12:29 05/12/17 15:04 Acetaminophen/ Hydrocodone Bitart ([place] 5/325) 1 tab Q4H PRN ORAL Mild Breakthrough Pain 05/13/17 14:45 05/20/17 14:44 Atorvastatin Calcium (Lipitor) 80 mg BEDTIME ORAL 05/12/17 21:00 06/11/17 20:59 05/12/17 20:49 Cefepime HCl 1 gm/ Dextrose 55 ml @ 110 mls/hr Q24H IVPB 05/13/17 14:30 05/20/17 14:29 05/13/17 14:31 Clindamycin HCl/ Dextrose 50 ml @ 100 mls/hr Q8HR IV 05/12/17 14:00 05/19/17 13:59 05/13/17 13:36 Clonidine HCl (Catapres) 0.1 mg Q4H PRN ORAL bp over syst 160 05/12/17 16:00 06/11/17 15:59 05/13/17 17:48 Epoetin Panchito (Procrit (for non ESRD use)) 10,000 units THU-THU-THU SUBQ 05/13/17 21:00 06/12/17 20:59 Folic Acid (Folate) 5 mg DAILY ORAL 05/13/17 11:00 06/12/17 10:59 05/13/17 10:54 Furosemide (Lasix) 40 mg EVERY 12 HOURS IV 05/12/17 21:00 06/11/17 20:59 05/13/17 09:01 Gabapentin (Neurontin) 300 mg BEDTIME ORAL 05/12/17 21:00 06/11/17 20:59 Hydralazine HCl (Apresoline) 50 mg Q6HR ORAL 05/13/17 12:00 06/12/17 11:59 05/13/17 17:47 Iron Sucrose 100 mg/Sodium Chloride 60 ml @ 240 mls/hr BEDTIME IV 05/13/17 21:00 05/17/17 21:14 Isosorbide Mononitrate (Imdur) 60 mg DAILY ORAL 05/13/17 09:00 06/12/17 08:59 05/13/17 09:02 Labetalol HCl (Normodyne) 300 mg Q8HR ORAL 05/12/17 14:00 06/11/17 13:59 05/13/17 13:37 Lansoprazole (Prevacid) 30 mg DAILY ORAL 05/12/17 16:00 06/11/17 15:59 05/13/17 09:01 Levothyroxine Sodium (Synthroid) 25 mcg DAILY@0630 ORAL 05/13/17 06:30 06/12/17 06:29 05/13/17 06:14 Levothyroxine Sodium (Synthroid) 112 mcg DAILY@0630 ORAL 05/13/17 06:30 06/12/17 06:29 05/13/17 06:14 Metolazone (Zaroxolyn) 5 mg DAILY@0830 ORAL 05/13/17 08:30 06/12/17 08:29 05/13/17 09:44 Morphine Sulfate (Morphine Sulfate) 2 mg Q4H PRN IVP For Pain Scale 4-10 05/12/17 20:45 05/19/17 20:44 05/12/17 21:30 Nifedipine (Procardia XL) 30 mg Q12HR ORAL 05/13/17 21:00 06/12/17 20:59 Nitroglycerin 250 ml @ 0 mls/hr Q24H IV 05/12/17 18:45 06/11/17 18:44 05/13/17 15:36 Anel Porras M.D. May 13, 2017 17:54
[2017-05-13] MEDS: Iron Sucrose 100 MG in NS 55 ML IV SCH ×2 (20:54→20:57)
[2017-05-13] MEDS: Atorvastatin 80mg tab ORAL SCH (20:55)
[2017-05-13] MEDS: Gabapentin 300 MG/6 ML Soln ORAL SCH (20:56)
[2017-05-13] MEDS ORDERED: Iron Sucrose 100 MG in NS 55 ML IVPB SCH (21:00)
[2017-05-13] MEDS ORDERED: Epogen (for non ESRD use) SUBQ SCH (21:00)
[2017-05-13] MEDS ORDERED: HydrALAZINE 50mg tab ORAL SCH (22:00)
[2017-05-13 22:10] LABS: CREATININE 3.7 MG/DL (0.55-1.30); GLOMERULAR FILTRATION RATE 12.2 mL/min (>60)
[2017-05-13] MEDS: Imdur 30mg tab ORAL SCH (22:15)
[2017-05-13 22:56] LABS: TOTAL PROTEIN 24HR URINE 281.5 mg/24hr (< 150)
[2017-05-14] VITALS (34 sets, daily range): BP systolic 130–180; BP diastolic 38–84
[2017-05-14] MEDS: Nitroglycerin 50mg/250ml btl 250 ML IV SCH (02:52)
[2017-05-14] MEDS: HydrALAZINE 50mg tab ORAL SCH ×4 (03:30→22:00)
[2017-05-14] MEDS: Levothyroxine 25mcg tab ORAL SCH (05:51)
[2017-05-14 08:10] LABS: BASOPHILS % (AUTO) 1.6 % (0.0-2.0); EOSINOPHILS % (AUTO) 6.6 % (0.0-3.0); LYMPHOCYTES % (AUTO) 11.5 % (20.0-45.0); MEAN CORPUSCULAR HEMOGLOBIN 30.1 PG (27.0-31.0); MEAN CORPUSCULAR HGB CONC 32.3 G/DL (32.0-36.0); MEAN CORPUSCULAR VOLUME 93 FL (80-99); MEAN PLATELET VOLUME 6.8 FL (6.5-10.1); MONOCYTES % (AUTO) 10.6 % (1.0-10.0); NEUTROPHILS % (AUTO) 69.6 % (45.0-75.0); PLATELET COUNT 183 K/UL (150-450); RED BLOOD COUNT 2.66 M/UL (4.20-5.40); WHITE BLOOD COUNT 4.5 K/UL (4.8-10.8)
[2017-05-14] MEDS: Imdur 30mg tab ORAL SCH (08:18)
[2017-05-14 08:49] LABS: ALANINE AMINOTRANSFERASE 10 U/L (12-78); ALBUMIN/GLOBULIN RATIO 0.8 (1.0-2.7); ANION GAP 9 (5-15); ASPARTATE AMINO TRANSFERASE 16 U/L (15-37); CARBON DIOXIDE 23 MMOL/L (21-32); CHLORIDE 104 MMOL/L (98-107); GLOMERULAR FILTRATION RATE 11.1 mL/min (>60); MAGNESIUM 1.7 MG/DL (1.8-2.4); PHOSPHORUS 5.3 MG/DL (2.5-4.9); POTASSIUM 4.2 MMOL/L (3.5-5.1); SODIUM 136 MMOL/L (136-145); TOTAL PROTEIN 6.2 G/DL (6.4-8.2); URIC ACID 8.6 MG/DL (2.6-7.2)
--- NOTE | 2017-05-14 09:41 | Diagnostic Imaging Report ---
APPROVED REPORT CPT Code: 49791 Present Symptoms Lower Extremity Edema: Bilateral Shortness of breath Comments: Hx CHF, Diabetes, HTN. BILATERAL: Imaging reveals a patent deep venous system bilaterally. There is no evidence of thrombus within the femoral, popliteal or tibial segments. The greater saphenous veins are also within normal limits. Doppler indicates normal spontaneous flow within these segments.
--- NOTE | 2017-05-14 12:37 | General Progress Note ---
Assessment/Plan Status: stable Assessment/Plan status; Acute respiratory failure- likely CHF Renal failure, acute on Chronic Diabetic Nephropathy HTN Anemia: low B12- and low Iron Plan: DC IV Nitrate- to monitor bed- adjust BP meds- B12 SQ po Folate IV Iron Optimize cardiac and respiratory status DC heredia keep BP and BS in check monitor renal parameters and Anemia ynag 24 h urine in process CrCl 15 transfuse as needed Subjective ROS Limited/Unobtainable: No Constitutional: Reports: malaise, other - breathing much improved Allergies: Coded Allergies: No Known Allergies (Unverified , 05/12/17) Objective Last 24 Hour Vital Signs Date Time Temp Pulse Resp B/P (MAP) Pulse Ox O2 Delivery O2 Flow Rate FiO2 05/14/17 11:00 63 12 162/63 95 Room Air 05/14/17 10:14 167/60 05/14/17 10:00 67 10 167/60 95 Room Air 05/14/17 09:30 64 10 154/58 95 Nasal Cannula 2.0 05/14/17 09:00 64 11 147/56 95 Nasal Cannula 2.0 05/14/17 08:30 65 11 154/58 95 Nasal Cannula 2.0 05/14/17 08:19 67 147/62 05/14/17 08:18 147/62 05/14/17 08:00 68 05/14/17 08:00 98.1 68 12 147/62 95 Room Air 05/14/17 07:30 67 15 131/54 95 Nasal Cannula 2.0 05/14/17 07:16 Nasal Cannula 2.0 28 05/14/17 07:15 98 Nasal Cannula 2.0 28 05/14/17 07:00 65 12 135/51 97 Nasal Cannula 2.0 05/14/17 06:30 68 12 130/43 97 Nasal Cannula 2.0 05/14/17 06:00 71 13 148/38 99 Nasal Cannula 2.0 05/14/17 05:51 64 160/46 05/14/17 05:30 66 12 160/46 99 Nasal Cannula 2.0 05/14/17 05:00 66 12 155/49 98 Nasal Cannula 2.0 05/14/17 04:30 66 12 143/49 99 Nasal Cannula 2.0 05/14/17 04:07 66 05/14/17 04:00 98.0 68 12 151/52 98 Nasal Cannula 2.0 05/14/17 03:30 68 12 172/50 98 Nasal Cannula 2.0 05/14/17 03:30 178/53 05/14/17 03:00 68 12 173/58 99 Nasal Cannula 2.0 05/14/17 02:52 154/44 05/14/17 02:30 71 13 154/44 98 Nasal Cannula 2.0 05/14/17 02:00 66 13 161/47 93 Nasal Cannula 2.0 05/14/17 01:30 69 13 151/50 95 Nasal Cannula 2.0 05/14/17 01:00 68 13 141/59 93 Nasal Cannula 2.0 05/14/17 00:30 66 13 158/53 94 Nasal Cannula 2.0 05/14/17 00:02 69 05/14/17 00:00 98.4 65 12 151/51 94 Nasal Cannula 2.0 05/13/17 23:30 65 12 150/59 93 Nasal Cannula 2.0 05/13/17 23:00 65 15 154/55 100 Nasal Cannula 2.0 05/13/17 22:16 74 132/81 05/13/17 22:15 132/81 05/13/17 22:15 132/81 05/13/17 22:00 72 15 169/58 100 Nasal Cannula 2.0 05/13/17 21:00 70 15 173/55 100 Nasal Cannula 2.0 05/13/17 20:57 70 169/58 05/13/17 20:48 169/58 05/13/17 20:00 70 15 169/58 100 Nasal Cannula 2.0 05/13/17 20:00 68 05/13/17 19:16 100 Nasal Cannula 3.0 32 05/13/17 19:16 Nasal Cannula 3.0 32 05/13/17 19:00 70 15 176/61 100 Nasal Cannula 2.0 05/13/17 18:00 71 15 185/57 98 Nasal Cannula 2.0 05/13/17 17:48 187/58 05/13/17 17:47 187/58 05/13/17 17:00 66 15 181/56 100 Nasal Cannula 3.0 05/13/17 16:00 98.5 78 14 172/69 100 Nasal Cannula 3.0 05/13/17 16:00 68 05/13/17 15:36 195/100 10/11/17 15:00 75 16 180/70 100 Nasal Cannula 3.0 05/13/17 14:00 66 18 188/61 100 Nasal Cannula 3.0 05/13/17 13:37 71 186/58 05/13/17 13:00 71 19 171/59 100 Nasal Cannula 3.0 Intake and Output 05/14/17 05/15/17 19:00 07:00 Intake Total 211 ml Output Total 600 ml Balance -389 ml Intake Oral 100 ml IV Total 81 ml Other 30 ml Output Urine Total 600 ml Laboratory Tests 05/14/17 07:40: White Blood Count 4.5L, Red Blood Count 2.66L, Hemoglobin 8.0L, Hematocrit 24.8L , Mean Corpuscular Volume 93, Mean Corpuscular Hemoglobin 30.1, Mean Corpuscular Hemoglobin Concent 32.3, Red Cell Distribution Width 13.0, Platelet Count 183, Mean Platelet Volume 6.8, Neutrophils (%) (Auto) 69.6, Lymphocytes (% ) (Auto) 11.5L, Monocytes (%) (Auto) 10.6H, Eosinophils (%) (Auto) 6.6H, Basophils (%) (Auto) 1.6, Sodium Level 136, Potassium Level 4.2, Chloride Level 104, Carbon Dioxide Level 23, Anion Gap 9, Blood Urea Nitrogen 66H, Creatinine 4.0H, Estimat Glomerular Filtration Rate 11.1, Glucose Level 201H, Uric Acid 8.6H, Calcium Level 8.0L, Phosphorus Level 5.3H, Magnesium Level 1.7L, Total Bilirubin 0.7, Aspartate Amino Transf (AST/SGOT) 16, Alanine Aminotransferase ( ALT/SGPT) 10L, Alkaline Phosphatase 103, C-Reactive Protein, Quantitative 1.0H, Pro-B-Type Natriuretic Peptide > [id number], Total Protein 6.2L, Albumin 2.7L, Globulin 3.5, Albumin/Globulin Ratio 0.8L Height (Feet): 5 Height (Inches): 0.00 Weight (Pounds): 160 General Appearance: no apparent distress Cardiovascular: normal rate Respiratory/Chest: decreased breath sounds Abdomen: soft Edema: 1+ Arm (L), 1+ Arm (R), 1+ Leg (L), 1+ Leg (R), 1+ Pedal (L), 1+ Pedal ( R), 1+ Generalized Objective no other changes VOLODYMYR DOUGLAS May 14, 2017 12:37
[2017-05-14] MEDS ORDERED: Cefepime HCl 0.5 GM in D5W 55 ML IVPB SCH (15:00)
--- NOTE | 2017-05-14 16:27 | Infectious Diseases Prog Note ---
Assessment/Plan Problems: (1) Pneumonia Assessment & Plan: less likely , with B/L pleural effusion, improved on CXR with diuresis , suspect fluids due to CHF more than infectious etiology, will stop cefepime empirically , blood culture is negative (2) Acute exacerbation of CHF (congestive heart failure) Assessment & Plan: improving , continue diuresis , cardiology is following (3) Respiratory failure with hypoxia Assessment & Plan: due to the above, improving, off BIBAP, now on nasal canula , pulmonary is following , monitor ABG and CXR (4) Renal failure Assessment & Plan: unclear whether acute or chronic , avoid nephrotoxic meds , monitor UOP (5) UTI (urinary tract infection) Assessment & Plan: with culture grew contaminant , on cefepime , will stop Subjective Constitutional: Reports: no symptoms HEENT: Reports: no symptoms Respiratory: Reports: shortness of breath, productive cough Breasts: Reports: no symptoms Cardiovascular: Reports: no symptoms Gastrointestinal/Abdominal: Reports: no symptoms Genitourinary: Reports: no symptoms Neurologic: Reports: no symptoms Psychiatric: Reports: no symptoms Skin: Reports: no symptoms Endocrine: Reports: no symptoms Hematologic: Reports: no symptoms Musculoskeletal: Reports: no symptoms Allergies: Coded Allergies: No Known Allergies (Unverified , 05/12/17) Objective Vital Signs Last 24 Hour Vital Signs Date Time Temp Pulse Resp B/P (MAP) Pulse Ox O2 Delivery O2 Flow Rate FiO2 05/14/17 16:16 152/42 05/14/17 16:00 97.8 68 14 152/42 96 Nasal Cannula 2.0 05/14/17 15:00 67 12 172/59 99 Nasal Cannula 2.0 05/14/17 14:05 164/60 05/14/17 14:05 66 164/60 05/14/17 14:00 66 12 164/60 98 Nasal Cannula 2.0 05/14/17 13:00 66 12 167/82 99 Room Air 05/14/17 12:00 63 05/14/17 12:00 97.9 67 14 165/63 95 Room Air 05/14/17 11:00 63 12 162/63 95 Room Air 05/14/17 10:14 167/60 05/14/17 10:00 67 10 167/60 95 Room Air 05/14/17 09:30 64 10 154/58 95 Nasal Cannula 2.0 05/14/17 09:00 64 11 147/56 95 Nasal Cannula 2.0 05/14/17 08:30 65 11 154/58 95 Nasal Cannula 2.0 05/14/17 08:19 67 147/62 05/14/17 08:18 147/62 05/14/17 08:00 68 05/14/17 08:00 98.1 68 12 147/62 95 Room Air 05/14/17 07:30 67 15 131/54 95 Nasal Cannula 2.0 05/14/17 07:16 Nasal Cannula 2.0 28 05/14/17 07:15 98 Nasal Cannula 2.0 28 05/14/17 07:00 65 12 135/51 97 Nasal Cannula 2.0 05/14/17 06:30 68 12 130/43 97 Nasal Cannula 2.0 05/14/17 06:00 71 13 148/38 99 Nasal Cannula 2.0 05/14/17 05:51 64 160/46 05/14/17 05:30 66 12 160/46 99 Nasal Cannula 2.0 05/14/17 05:00 66 12 155/49 98 Nasal Cannula 2.0 05/14/17 04:30 66 12 143/49 99 Nasal Cannula 2.0 05/14/17 04:07 66 05/14/17 04:00 98.0 68 12 151/52 98 Nasal Cannula 2.0 05/14/17 03:30 68 12 172/50 98 Nasal Cannula 2.0 05/14/17 03:30 178/53 05/14/17 03:00 68 12 173/58 99 Nasal Cannula 2.0 05/14/17 02:52 154/44 05/14/17 02:30 71 13 154/44 98 Nasal Cannula 2.0 05/14/17 02:00 66 13 161/47 93 Nasal Cannula 2.0 05/14/17 01:30 69 13 151/50 95 Nasal Cannula 2.0 05/14/17 01:00 68 13 141/59 93 Nasal Cannula 2.0 05/14/17 00:30 66 13 158/53 94 Nasal Cannula 2.0 05/14/17 00:02 69 05/14/17 00:00 98.4 65 12 151/51 94 Nasal Cannula 2.0 05/13/17 23:30 65 12 150/59 93 Nasal Cannula 2.0 05/13/17 23:00 65 15 154/55 100 Nasal Cannula 2.0 05/13/17 22:16 74 132/81 05/13/17 22:15 132/81 05/13/17 22:15 132/81 05/13/17 22:00 72 15 169/58 100 Nasal Cannula 2.0 05/13/17 21:00 70 15 173/55 100 Nasal Cannula 2.0 05/13/17 20:57 70 169/58 05/13/17 20:48 169/58 05/13/17 20:00 70 15 169/58 100 Nasal Cannula 2.0 05/13/17 20:00 68 05/13/17 19:16 100 Nasal Cannula 3.0 32 05/13/17 19:16 Nasal Cannula 3.0 32 05/13/17 19:00 70 15 176/61 100 Nasal Cannula 2.0 05/13/17 18:00 71 15 185/57 98 Nasal Cannula 2.0 05/13/17 17:48 187/58 05/13/17 17:47 187/58 05/13/17 17:00 66 15 181/56 100 Nasal Cannula 3.0 Height (Feet): 5 Height (Inches): 0.00 Weight (Pounds): 160 General Appearance: WD/WN, no acute distress HEENT: normocephalic, atraumatic, anicteric, mucous membranes moist, PERRL Respiratory/Chest: chest wall non-tender, no respiratory distress, no accessory muscle use, decreased breath sounds, crackles/rales Cardiovascular: normal peripheral pulses, normal rate, regular rhythm, no gallop/murmur, no JVD Abdomen: normal bowel sounds, soft, non tender, no organomegaly, non distended , no mass, no scars Extremities: no cyanosis, no clubbing Skin: no rash, no lesions, no ulcers Neurologic/Psychiatric: alert, oriented x 3, responsive Lymphatic: no neck adenopathy, no groin adenopathy Microbiology Date/Time Source Procedure Growth Status 05/12/17 17:50 Blood Blood Culture - Preliminary NO GROWTH AFTER 24 HOURS Resulted 05/12/17 11:08 Nasal Nares MRSA Culture - Final NO METHICILLIN RESISTANT STAPH AUREUS... Complete 05/12/17 16:00 Urine,Clean Catch Urine Culture - Preliminary Mixed Urogenital Contaminants Resulted 05/12/17 11:08 Rectum VRE Culture - Final NO VANCOMYCIN RESISTANT ENTEROCOCCUS ... Complete Laboratory Tests Test 05/14/17 07:40 White Blood Count 4.5 K/UL (4.8-10.8) L Red Blood Count 2.66 M/UL (4.20-5.40) L Hemoglobin 8.0 G/DL (12.0-16.0) L Hematocrit 24.8 % (37.0-47.0) L Mean Corpuscular Volume 93 FL (80-99) Mean Corpuscular Hemoglobin 30.1 PG (27.0-31.0) Mean Corpuscular Hemoglobin Concent 32.3 G/DL (32.0-36.0) Red Cell Distribution Width 13.0 % (11.6-14.8) Platelet Count 183 K/UL (150-450) Mean Platelet Volume 6.8 FL (6.5-10.1) Neutrophils (%) (Auto) 69.6 % (45.0-75.0) Lymphocytes (%) (Auto) 11.5 % (20.0-45.0) L Monocytes (%) (Auto) 10.6 % (1.0-10.0) H Eosinophils (%) (Auto) 6.6 % (0.0-3.0) H Basophils (%) (Auto) 1.6 % (0.0-2.0) Sodium Level 136 MMOL/L (136-145) Potassium Level 4.2 MMOL/L (3.5-5.1) Chloride Level 104 MMOL/L (98-107) Carbon Dioxide Level 23 MMOL/L (21-32) Anion Gap 9 (5-15) Blood Urea Nitrogen 66 mg/dL (7-18) H Creatinine 4.0 MG/DL (0.55-1.30) H Estimat Glomerular Filtration Rate 11.1 mL/min (>60) Glucose Level 201 MG/DL (74-106) H Uric Acid 8.6 MG/DL (2.6-7.2) H Calcium Level 8.0 MG/DL (8.5-10.1) L Phosphorus Level 5.3 MG/DL (2.5-4.9) H Magnesium Level 1.7 MG/DL (1.8-2.4) L Total Bilirubin 0.7 MG/DL (0.2-1.0) Aspartate Amino Transf (AST/SGOT) 16 U/L (15-37) Alanine Aminotransferase (ALT/SGPT) 10 U/L (12-78) L Alkaline Phosphatase 103 U/L (46-116) C-Reactive Protein, Quantitative 1.0 mg/dL (0.00-0.90) H Pro-B-Type Natriuretic Peptide > 51960 (0-125) H Total Protein 6.2 G/DL (6.4-8.2) L Albumin 2.7 G/DL (3.4-5.0) L Globulin 3.5 g/dL Albumin/Globulin Ratio 0.8 (1.0-2.7) L Current Medications Medications (Trade) Dose Ordered Sig/Toya Route PRN Reason Start Time Stop Time Status Last Admin Dose Admin Acetaminophen (Tylenol) 650 mg Q4H PRN ORAL Mild Pain/Temp > 100.5 05/12/17 12:30 06/11/17 12:29 05/13/17 21:05 Acetaminophen/ Hydrocodone Bitart ([place] 5/325) 1 tab Q4H PRN ORAL Mild Breakthrough Pain 05/13/17 14:45 05/20/17 14:44 Allopurinol (Allopurinol) 300 mg DAILY ORAL 05/14/17 14:00 06/13/17 13:59 05/14/17 14:05 Atorvastatin Calcium (Lipitor) 80 mg BEDTIME ORAL 05/12/17 21:00 06/11/17 20:59 05/13/17 20:55 Cefepime HCl 0.5 gm/Dextrose 55 ml @ 110 mls/hr DAILY IVPB 05/14/17 15:00 05/21/17 14:59 05/14/17 14:06 Clonidine HCl (Catapres) 0.1 mg Q4H PRN ORAL bp over syst 160 05/12/17 16:00 06/11/17 15:59 05/14/17 14:05 Epoetin Panchito (Procrit (for non ESRD use)) 10,000 units THU-WED-THU SUBQ 05/13/17 21:00 06/12/17 20:59 05/13/17 22:14 Folic Acid (Folate) 5 mg DAILY ORAL 05/13/17 11:00 06/12/17 10:59 05/14/17 08:18 Furosemide (Lasix) 40 mg EVERY 12 HOURS IV 05/12/17 21:00 06/11/17 20:59 05/14/17 08:18 Gabapentin (Neurontin) 300 mg BEDTIME ORAL 05/12/17 21:00 06/11/17 20:59 05/13/17 20:56 Hydralazine HCl (Apresoline) 100 mg Q6H ORAL 05/13/17 22:00 06/12/17 21:59 05/14/17 16:16 Iron Sucrose 100 mg/Sodium Chloride 60 ml @ 240 mls/hr BEDTIME IV 05/13/17 21:00 05/17/17 21:14 05/13/17 20:57 Isosorbide Mononitrate (Imdur) 90 mg DAILY ORAL 05/13/17 21:00 06/12/17 20:59 05/14/17 08:18 Labetalol HCl (Normodyne) 300 mg Q8HR ORAL 05/12/17 14:00 06/11/17 13:59 05/14/17 14:05 Lansoprazole (Prevacid) 30 mg DAILY ORAL 05/12/17 16:00 06/11/17 15:59 05/14/17 08:18 Levothyroxine Sodium (Synthroid) 25 mcg DAILY@0630 ORAL 05/13/17 06:30 06/12/17 06:29 05/14/17 05:51 Levothyroxine Sodium (Synthroid) 112 mcg DAILY@0630 ORAL 05/13/17 06:30 06/12/17 06:29 05/14/17 05:51 Metolazone (Zaroxolyn) 5 mg DAILY@0830 ORAL 05/13/17 08:30 06/12/17 08:29 05/14/17 08:18 Morphine Sulfate (Morphine Sulfate) 2 mg Q4H PRN IVP For Pain Scale 4-10 05/12/17 20:45 05/19/17 20:44 05/12/17 21:30 Nifedipine (Procardia XL) 60 mg Q12HR ORAL 05/14/17 21:00 06/13/17 20:59 Anel Porras M.D. May 14, 2017 16:27
--- NOTE | 2017-05-14 16:41 | Pulmonology Progress Note ---
Assessment/Plan Assessment/Plan 1. Pulmonary edema and pleural effusions. 2. Respiratory failure. 3. Renal failure. 4. Hypertension with hypertensive heart disease. 5. Diabetes. 6. Hyperlipidemia. 7. Hypothyroidism. breathing well BP better off BiPAP disc w RN pulm status improved Subjective ROS Limited/Unobtainable: No Respiratory: Denies: shortness of breath Cardiovascular: Denies: chest pain Allergies: Coded Allergies: No Known Allergies (Unverified , 05/12/17) Objective Last 24 Hour Vital Signs Date Time Temp Pulse Resp B/P (MAP) Pulse Ox O2 Delivery O2 Flow Rate FiO2 05/14/17 16:16 152/42 05/14/17 16:00 97.8 68 14 152/42 96 Nasal Cannula 2.0 05/14/17 15:00 67 12 172/59 99 Nasal Cannula 2.0 05/14/17 14:05 164/60 05/14/17 14:05 66 164/60 05/14/17 14:00 66 12 164/60 98 Nasal Cannula 2.0 05/14/17 13:00 66 12 167/82 99 Room Air 05/14/17 12:00 63 05/14/17 12:00 97.9 67 14 165/63 95 Room Air 05/14/17 11:00 63 12 162/63 95 Room Air 05/14/17 10:14 167/60 05/14/17 10:00 67 10 167/60 95 Room Air 05/14/17 09:30 64 10 154/58 95 Nasal Cannula 2.0 05/14/17 09:00 64 11 147/56 95 Nasal Cannula 2.0 05/14/17 08:30 65 11 154/58 95 Nasal Cannula 2.0 05/14/17 08:19 67 147/62 05/14/17 08:18 147/62 05/14/17 08:00 68 05/14/17 08:00 98.1 68 12 147/62 95 Room Air 05/14/17 07:30 67 15 131/54 95 Nasal Cannula 2.0 05/14/17 07:16 Nasal Cannula 2.0 28 05/14/17 07:15 98 Nasal Cannula 2.0 28 05/14/17 07:00 65 12 135/51 97 Nasal Cannula 2.0 05/14/17 06:30 68 12 130/43 97 Nasal Cannula 2.0 05/14/17 06:00 71 13 148/38 99 Nasal Cannula 2.0 05/14/17 05:51 64 160/46 05/14/17 05:30 66 12 160/46 99 Nasal Cannula 2.0 05/14/17 05:00 66 12 155/49 98 Nasal Cannula 2.0 05/14/17 04:30 66 12 143/49 99 Nasal Cannula 2.0 05/14/17 04:07 66 05/14/17 04:00 98.0 68 12 151/52 98 Nasal Cannula 2.0 05/14/17 03:30 68 12 172/50 98 Nasal Cannula 2.0 05/14/17 03:30 178/53 05/14/17 03:00 68 12 173/58 99 Nasal Cannula 2.0 05/14/17 02:52 154/44 05/14/17 02:30 71 13 154/44 98 Nasal Cannula 2.0 05/14/17 02:00 66 13 161/47 93 Nasal Cannula 2.0 05/14/17 01:30 69 13 151/50 95 Nasal Cannula 2.0 05/14/17 01:00 68 13 141/59 93 Nasal Cannula 2.0 05/14/17 00:30 66 13 158/53 94 Nasal Cannula 2.0 05/14/17 00:02 69 05/14/17 00:00 98.4 65 12 151/51 94 Nasal Cannula 2.0 05/13/17 23:30 65 12 150/59 93 Nasal Cannula 2.0 05/13/17 23:00 65 15 154/55 100 Nasal Cannula 2.0 05/13/17 22:16 74 132/81 05/13/17 22:15 132/81 05/13/17 22:15 132/81 05/13/17 22:00 72 15 169/58 100 Nasal Cannula 2.0 05/13/17 21:00 70 15 173/55 100 Nasal Cannula 2.0 05/13/17 20:57 70 169/58 05/13/17 20:48 169/58 05/13/17 20:00 70 15 169/58 100 Nasal Cannula 2.0 05/13/17 20:00 68 05/13/17 19:16 100 Nasal Cannula 3.0 32 05/13/17 19:16 Nasal Cannula 3.0 32 05/13/17 19:00 70 15 176/61 100 Nasal Cannula 2.0 05/13/17 18:00 71 15 185/57 98 Nasal Cannula 2.0 05/13/17 17:48 187/58 05/13/17 17:47 187/58 05/13/17 17:00 66 15 181/56 100 Nasal Cannula 3.0 Intake and Output 05/14/17 05/15/17 19:00 07:00 Intake Total 416 ml Output Total 1300 ml Balance -884 ml Intake Oral 250 ml IV Total 136 ml Other 30 ml Output Urine Total 1300 ml General Appearance: no acute distress HEENT: atraumatic Respiratory/Chest: lungs clear Cardiovascular: normal rate Microbiology Date/Time Source Procedure Growth Status 05/12/17 17:50 Blood Blood Culture - Preliminary NO GROWTH AFTER 24 HOURS Resulted 05/12/17 11:08 Nasal Nares MRSA Culture - Final NO METHICILLIN RESISTANT STAPH AUREUS... Complete 05/12/17 16:00 Urine,Clean Catch Urine Culture - Preliminary Mixed Urogenital Contaminants Resulted 05/12/17 11:08 Rectum VRE Culture - Final NO VANCOMYCIN RESISTANT ENTEROCOCCUS ... Complete Laboratory Tests 05/14/17 07:40: White Blood Count 4.5L, Red Blood Count 2.66L, Hemoglobin 8.0L, Hematocrit 24.8L , Mean Corpuscular Volume 93, Mean Corpuscular Hemoglobin 30.1, Mean Corpuscular Hemoglobin Concent 32.3, Red Cell Distribution Width 13.0, Platelet Count 183, Mean Platelet Volume 6.8, Neutrophils (%) (Auto) 69.6, Lymphocytes (% ) (Auto) 11.5L, Monocytes (%) (Auto) 10.6H, Eosinophils (%) (Auto) 6.6H, Basophils (%) (Auto) 1.6, Sodium Level 136, Potassium Level 4.2, Chloride Level 104, Carbon Dioxide Level 23, Anion Gap 9, Blood Urea Nitrogen 66H, Creatinine 4.0H, Estimat Glomerular Filtration Rate 11.1, Glucose Level 201H, Uric Acid 8.6H, Calcium Level 8.0L, Phosphorus Level 5.3H, Magnesium Level 1.7L, Total Bilirubin 0.7, Aspartate Amino Transf (AST/SGOT) 16, Alanine Aminotransferase ( ALT/SGPT) 10L, Alkaline Phosphatase 103, C-Reactive Protein, Quantitative 1.0H, Pro-B-Type Natriuretic Peptide > [id number], Total Protein 6.2L, Albumin 2.7L, Globulin 3.5, Albumin/Globulin Ratio 0.8L Current Medications Medications (Trade) Dose Ordered Sig/Toya Route PRN Reason Start Time Stop Time Status Last Admin Dose Admin Acetaminophen (Tylenol) 650 mg Q4H PRN ORAL Mild Pain/Temp > 100.5 05/12/17 12:30 06/11/17 12:29 05/13/17 21:05 Acetaminophen/ Hydrocodone Bitart ([place] 5/325) 1 tab Q4H PRN ORAL Mild Breakthrough Pain 05/13/17 14:45 05/20/17 14:44 Allopurinol (Allopurinol) 300 mg DAILY ORAL 05/14/17 14:00 06/13/17 13:59 05/14/17 14:05 Atorvastatin Calcium (Lipitor) 80 mg BEDTIME ORAL 05/12/17 21:00 06/11/17 20:59 05/13/17 20:55 Clonidine HCl (Catapres) 0.1 mg Q4H PRN ORAL bp over syst 160 05/12/17 16:00 06/11/17 15:59 05/14/17 14:05 Epoetin Panchito (Procrit (for non ESRD use)) 10,000 units THU-THU-THU SUBQ 05/13/17 21:00 06/12/17 20:59 05/13/17 22:14 Folic Acid (Folate) 5 mg DAILY ORAL 05/13/17 11:00 06/12/17 10:59 05/14/17 08:18 Furosemide (Lasix) 40 mg EVERY 12 HOURS IV 05/12/17 21:00 06/11/17 20:59 05/14/17 08:18 Gabapentin (Neurontin) 300 mg BEDTIME ORAL 05/12/17 21:00 06/11/17 20:59 05/13/17 20:56 Hydralazine HCl (Apresoline) 100 mg Q6H ORAL 05/13/17 22:00 06/12/17 21:59 05/14/17 16:16 Iron Sucrose 100 mg/Sodium Chloride 60 ml @ 240 mls/hr BEDTIME IV 05/13/17 21:00 05/17/17 21:14 05/13/17 20:57 Isosorbide Mononitrate (Imdur) 90 mg DAILY ORAL 05/13/17 21:00 06/12/17 20:59 05/14/17 08:18 Labetalol HCl (Normodyne) 300 mg Q8HR ORAL 05/12/17 14:00 06/11/17 13:59 05/14/17 14:05 Lansoprazole (Prevacid) 30 mg DAILY ORAL 05/12/17 16:00 06/11/17 15:59 05/14/17 08:18 Levothyroxine Sodium (Synthroid) 25 mcg DAILY@0630 ORAL 05/13/17 06:30 06/12/17 06:29 05/14/17 05:51 Levothyroxine Sodium (Synthroid) 112 mcg DAILY@0630 ORAL 05/13/17 06:30 06/12/17 06:29 05/14/17 05:51 Metolazone (Zaroxolyn) 5 mg DAILY@0830 ORAL 05/13/17 08:30 06/12/17 08:29 05/14/17 08:18 Morphine Sulfate (Morphine Sulfate) 2 mg Q4H PRN IVP For Pain Scale 4-10 05/12/17 20:45 05/19/17 20:44 05/12/17 21:30 Nifedipine (Procardia XL) 60 mg Q12HR ORAL 05/14/17 21:00 06/13/17 20:59 AMADA CERVANTES May 14, 2017 16:41
[2017-05-14] MEDS ORDERED: NS 275ml ONE (17:35)
[2017-05-14] MEDS ORDERED: Tubing Blood Filter IV ONE (17:35)
--- NOTE | 2017-05-14 17:49 | Cardiology Progress Note ---
Assessment/Plan Assessment/Plan 1. Dyspnea likely due to hypervolemia associated with CKD, echocardiography reveals normal LV systolic function with diastolic data consistent with normal intra-cardiac filling pressure, although there is element of abnormal LV relaxation due to hypertension, Continue aggressive treatment for HTN emergency in particular aggressive use of diuretics or ultrafiltration. 2. HTN emergency with end-organ damage, optimize clonidine, beta-blockers, calcium- channel blockers, and diuretics. DC nitro gtt. 3. Stage 5 chronic kidney disease with small pericardial effusion, ? hemodialysis at discretion of Dr. Falk. Subjective Subjective Sinus rhythm at 68. Nitro drip is tapered down. Objective Last 24 Hour Vital Signs Date Time Temp Pulse Resp B/P (MAP) Pulse Ox O2 Delivery O2 Flow Rate FiO2 05/14/17 16:16 152/42 05/14/17 16:00 97.8 68 14 152/42 96 Nasal Cannula 2.0 05/14/17 16:00 67 05/14/17 15:00 67 12 172/59 99 Nasal Cannula 2.0 05/14/17 14:05 164/60 05/14/17 14:05 66 164/60 05/14/17 14:00 66 12 164/60 98 Nasal Cannula 2.0 05/14/17 13:00 66 12 167/82 99 Room Air 05/14/17 12:00 63 05/14/17 12:00 97.9 67 14 165/63 95 Room Air 05/14/17 11:00 63 12 162/63 95 Room Air 05/14/17 10:14 167/60 05/14/17 10:00 67 10 167/60 95 Room Air 05/14/17 09:30 64 10 154/58 95 Nasal Cannula 2.0 05/14/17 09:00 64 11 147/56 95 Nasal Cannula 2.0 05/14/17 08:30 65 11 154/58 95 Nasal Cannula 2.0 05/14/17 08:19 67 147/62 05/14/17 08:18 147/62 05/14/17 08:00 68 05/14/17 08:00 98.1 68 12 147/62 95 Room Air 05/14/17 07:30 67 15 131/54 95 Nasal Cannula 2.0 05/14/17 07:16 Nasal Cannula 2.0 28 05/14/17 07:15 98 Nasal Cannula 2.0 28 05/14/17 07:00 65 12 135/51 97 Nasal Cannula 2.0 05/14/17 06:30 68 12 130/43 97 Nasal Cannula 2.0 05/14/17 06:00 71 13 148/38 99 Nasal Cannula 2.0 05/14/17 05:51 64 160/46 05/14/17 05:30 66 12 160/46 99 Nasal Cannula 2.0 05/14/17 05:00 66 12 155/49 98 Nasal Cannula 2.0 05/14/17 04:30 66 12 143/49 99 Nasal Cannula 2.0 05/14/17 04:07 66 05/14/17 04:00 98.0 68 12 151/52 98 Nasal Cannula 2.0 05/14/17 03:30 68 12 172/50 98 Nasal Cannula 2.0 05/14/17 03:30 178/53 05/14/17 03:00 68 12 173/58 99 Nasal Cannula 2.0 05/14/17 02:52 154/44 05/14/17 02:30 71 13 154/44 98 Nasal Cannula 2.0 05/14/17 02:00 66 13 161/47 93 Nasal Cannula 2.0 05/14/17 01:30 69 13 151/50 95 Nasal Cannula 2.0 05/14/17 01:00 68 13 141/59 93 Nasal Cannula 2.0 05/14/17 00:30 66 13 158/53 94 Nasal Cannula 2.0 05/14/17 00:02 69 05/14/17 00:00 98.4 65 12 151/51 94 Nasal Cannula 2.0 05/13/17 23:30 65 12 150/59 93 Nasal Cannula 2.0 05/13/17 23:00 65 15 154/55 100 Nasal Cannula 2.0 05/13/17 22:16 74 132/81 05/13/17 22:15 132/81 05/13/17 22:15 132/81 05/13/17 22:00 72 15 169/58 100 Nasal Cannula 2.0 05/13/17 21:00 70 15 173/55 100 Nasal Cannula 2.0 05/13/17 20:57 70 169/58 05/13/17 20:48 169/58 05/13/17 20:00 70 15 169/58 100 Nasal Cannula 2.0 05/13/17 20:00 68 05/13/17 19:16 100 Nasal Cannula 3.0 32 05/13/17 19:16 Nasal Cannula 3.0 32 05/13/17 19:00 70 15 176/61 100 Nasal Cannula 2.0 05/13/17 18:00 71 15 185/57 98 Nasal Cannula 2.0 05/13/17 17:48 187/58 05/13/17 17:47 187/58 Intake and Output 05/14/17 05/15/17 19:00 07:00 Intake Total 416 ml Output Total 1300 ml Balance -884 ml Intake Oral 250 ml IV Total 136 ml Other 30 ml Output Urine Total 1300 ml 2D Echo: LVEF 55%, small pericardial effusion, grade I LVDD, RVSP 32 mmHg Laboratory Tests Test 05/14/17 07:40 White Blood Count 4.5 K/UL (4.8-10.8) L Red Blood Count 2.66 M/UL (4.20-5.40) L Hemoglobin 8.0 G/DL (12.0-16.0) L Hematocrit 24.8 % (37.0-47.0) L Mean Corpuscular Volume 93 FL (80-99) Mean Corpuscular Hemoglobin 30.1 PG (27.0-31.0) Mean Corpuscular Hemoglobin Concent 32.3 G/DL (32.0-36.0) Red Cell Distribution Width 13.0 % (11.6-14.8) Platelet Count 183 K/UL (150-450) Mean Platelet Volume 6.8 FL (6.5-10.1) Neutrophils (%) (Auto) 69.6 % (45.0-75.0) Lymphocytes (%) (Auto) 11.5 % (20.0-45.0) L Monocytes (%) (Auto) 10.6 % (1.0-10.0) H Eosinophils (%) (Auto) 6.6 % (0.0-3.0) H Basophils (%) (Auto) 1.6 % (0.0-2.0) Sodium Level 136 MMOL/L (136-145) Potassium Level 4.2 MMOL/L (3.5-5.1) Chloride Level 104 MMOL/L (98-107) Carbon Dioxide Level 23 MMOL/L (21-32) Anion Gap 9 (5-15) Blood Urea Nitrogen 66 mg/dL (7-18) H Creatinine 4.0 MG/DL (0.55-1.30) H Estimat Glomerular Filtration Rate 11.1 mL/min (>60) Glucose Level 201 MG/DL (74-106) H Uric Acid 8.6 MG/DL (2.6-7.2) H Calcium Level 8.0 MG/DL (8.5-10.1) L Phosphorus Level 5.3 MG/DL (2.5-4.9) H Magnesium Level 1.7 MG/DL (1.8-2.4) L Total Bilirubin 0.7 MG/DL (0.2-1.0) Aspartate Amino Transf (AST/SGOT) 16 U/L (15-37) Alanine Aminotransferase (ALT/SGPT) 10 U/L (12-78) L Alkaline Phosphatase 103 U/L (46-116) C-Reactive Protein, Quantitative 1.0 mg/dL (0.00-0.90) H Pro-B-Type Natriuretic Peptide > 87632 (0-125) H Total Protein 6.2 G/DL (6.4-8.2) L Albumin 2.7 G/DL (3.4-5.0) L Globulin 3.5 g/dL Albumin/Globulin Ratio 0.8 (1.0-2.7) L Microbiology Date/Time Source Procedure Growth Status 05/12/17 17:50 Blood Blood Culture - Preliminary NO GROWTH AFTER 24 HOURS Resulted 05/12/17 11:08 Nasal Nares MRSA Culture - Final NO METHICILLIN RESISTANT STAPH AUREUS... Complete 05/12/17 16:00 Urine,Clean Catch Urine Culture - Preliminary Mixed Urogenital Contaminants Resulted 05/12/17 11:08 Rectum VRE Culture - Final NO VANCOMYCIN RESISTANT ENTEROCOCCUS ... Complete Objective HEENT: Atraumatic and normocephalic. Pupils are equal, round, and reactive to light and accommodation. Extraocular muscles are intact. NECK: JVP is elevated about 10 to 15 cm. No carotid bruit. Carotid upstrokes 2+ bilaterally. CARDIOVASCULAR: Normal S1, S2. Regular rate and rhythm. There is a 2/6 mid systolic murmur at the left sternal border. There is no pericardial rub. PMI is at 4th intercostal space in the midclavicular line. LUNGS: Bibasilar crackles. ABDOMEN: Soft, nontender, and nondistended. No hepatosplenomegaly. Positive bowel sounds. EXTREMITIES: There is 2+ pitting edema bilaterally. NATI VOGEL May 14, 2017 17:49
[2017-05-14] MEDS: Iron Sucrose 100 MG in NS 55 ML IV SCH (20:14)
[2017-05-14] MEDS: Atorvastatin 80mg tab ORAL SCH (20:14)
--- NOTE | 2017-05-14 20:14 | General Progress Note ---
Assessment/Plan Assessment/Plan # Anemia of iron deficiency - low ferritin, begin on iv iron, as per renal team # Anemia of kidney disease - on venofer as well as epogen, agree will improve and mobilize iron stores # Anemia of b12 deficiency - b12 im sq doses # Acute respiratory failure- likely CHF # Renal failure, acute on Chronic # Diabetic Nephropathy # HTN Subjective Constitutional: Reports: no symptoms HEENT: Reports: no symptoms Cardiovascular: Denies: no symptoms, chest pain, edema, irregular heart rate, lightheadedness, palpitations, syncope, other Gastrointestinal/Abdominal: Denies: no symptoms, abdomen distended, abdominal pain, black stools, tarry stools, blood in stool, constipated, diarrhea, difficulty swallowing, nausea, poor appetite, poor fluid intake, rectal bleeding , vomiting, other Genitourinary: Denies: no symptoms, burning, discharge, frequency, flank pain, hematuria, incontinence, pain, urgency, other Neurologic/Psychiatric: Denies: no symptoms, anxiety, depressed, emotional problems, headache, numbness, paresthesia, pre-existing deficit, seizure, tingling, tremors, weakness, other Endocrine: Denies: no symptoms, excessive sweating, flushing, intolerance to cold, intolerance to heat, increased hunger, increased thirst, increased urine, unexplained weight gain, unexplained weight loss, other Hematologic/Lymphatic: Denies: no symptoms, anemia, easy bleeding, easy bruising, other Allergies: Coded Allergies: No Known Allergies (Unverified , 05/12/17) Subjective no events, remains in the icu Objective Last 24 Hour Vital Signs Date Time Temp Pulse Resp B/P (MAP) Pulse Ox O2 Delivery O2 Flow Rate FiO2 05/14/17 19:44 99 Nasal Cannula 2.0 28 05/14/17 19:44 Nasal Cannula 2.0 28 05/14/17 19:00 69 12 142/54 97 Nasal Cannula 2.0 05/14/17 18:00 70 12 158/84 96 Nasal Cannula 2.0 05/14/17 17:00 74 12 156/46 100 Nasal Cannula 2.0 05/14/17 16:16 152/42 05/14/17 16:00 97.8 68 14 152/42 96 Nasal Cannula 2.0 05/14/17 16:00 67 05/14/17 15:00 67 12 172/59 99 Nasal Cannula 2.0 05/14/17 14:05 164/60 05/14/17 14:05 66 164/60 05/14/17 14:00 66 12 164/60 98 Nasal Cannula 2.0 05/14/17 13:00 66 12 167/82 99 Room Air 05/14/17 12:00 63 05/14/17 12:00 97.9 67 14 165/63 95 Room Air 05/14/17 11:00 63 12 162/63 95 Room Air 05/14/17 10:14 167/60 05/14/17 10:00 67 10 167/60 95 Room Air 05/14/17 09:30 64 10 154/58 95 Nasal Cannula 2.0 05/14/17 09:00 64 11 147/56 95 Nasal Cannula 2.0 05/14/17 08:30 65 11 154/58 95 Nasal Cannula 2.0 05/14/17 08:19 67 147/62 05/14/17 08:18 147/62 05/14/17 08:00 68 05/14/17 08:00 98.1 68 12 147/62 95 Room Air 05/14/17 07:30 67 15 131/54 95 Nasal Cannula 2.0 05/14/17 07:16 Nasal Cannula 2.0 28 05/14/17 07:15 98 Nasal Cannula 2.0 28 05/14/17 07:00 65 12 135/51 97 Nasal Cannula 2.0 05/14/17 06:30 68 12 130/43 97 Nasal Cannula 2.0 05/14/17 06:00 71 13 148/38 99 Nasal Cannula 2.0 05/14/17 05:51 64 160/46 05/14/17 05:30 66 12 160/46 99 Nasal Cannula 2.0 05/14/17 05:00 66 12 155/49 98 Nasal Cannula 2.0 05/14/17 04:30 66 12 143/49 99 Nasal Cannula 2.0 05/14/17 04:07 66 05/14/17 04:00 98.0 68 12 151/52 98 Nasal Cannula 2.0 05/14/17 03:30 68 12 172/50 98 Nasal Cannula 2.0 05/14/17 03:30 178/53 05/14/17 03:00 68 12 173/58 99 Nasal Cannula 2.0 05/14/17 02:52 154/44 05/14/17 02:30 71 13 154/44 98 Nasal Cannula 2.0 05/14/17 02:00 66 13 161/47 93 Nasal Cannula 2.0 05/14/17 01:30 69 13 151/50 95 Nasal Cannula 2.0 05/14/17 01:00 68 13 141/59 93 Nasal Cannula 2.0 05/14/17 00:30 66 13 158/53 94 Nasal Cannula 2.0 05/14/17 00:02 69 05/14/17 00:00 98.4 65 12 151/51 94 Nasal Cannula 2.0 05/13/17 23:30 65 12 150/59 93 Nasal Cannula 2.0 05/13/17 23:00 65 15 154/55 100 Nasal Cannula 2.0 05/13/17 22:16 74 132/81 05/13/17 22:15 132/81 05/13/17 22:15 132/81 05/13/17 22:00 72 15 169/58 100 Nasal Cannula 2.0 05/13/17 21:00 70 15 173/55 100 Nasal Cannula 2.0 05/13/17 20:57 70 169/58 05/13/17 20:48 169/58 Intake and Output 05/14/17 05/15/17 19:00 07:00 Intake Total 646 ml Output Total 1575 ml Balance -929 ml Intake Oral 450 ml IV Total 136 ml Other 60 ml Output Urine Total 1575 ml Laboratory Tests 05/14/17 07:40: White Blood Count 4.5L, Red Blood Count 2.66L, Hemoglobin 8.0L, Hematocrit 24.8L , Mean Corpuscular Volume 93, Mean Corpuscular Hemoglobin 30.1, Mean Corpuscular Hemoglobin Concent 32.3, Red Cell Distribution Width 13.0, Platelet Count 183, Mean Platelet Volume 6.8, Neutrophils (%) (Auto) 69.6, Lymphocytes (% ) (Auto) 11.5L, Monocytes (%) (Auto) 10.6H, Eosinophils (%) (Auto) 6.6H, Basophils (%) (Auto) 1.6, Sodium Level 136, Potassium Level 4.2, Chloride Level 104, Carbon Dioxide Level 23, Anion Gap 9, Blood Urea Nitrogen 66H, Creatinine 4.0H, Estimat Glomerular Filtration Rate 11.1, Glucose Level 201H, Uric Acid 8.6H, Calcium Level 8.0L, Phosphorus Level 5.3H, Magnesium Level 1.7L, Total Bilirubin 0.7, Aspartate Amino Transf (AST/SGOT) 16, Alanine Aminotransferase ( ALT/SGPT) 10L, Alkaline Phosphatase 103, C-Reactive Protein, Quantitative 1.0H, Pro-B-Type Natriuretic Peptide > 85703Z, Total Protein 6.2L, Albumin 2.7L, Globulin 3.5, Albumin/Globulin Ratio 0.8L Height (Feet): 5 Height (Inches): 0.00 Weight (Pounds): 160 General Appearance: no apparent distress EENT: TMs normal Neck: supple Cardiovascular: normal rate Respiratory/Chest: lungs clear Abdomen: no organomegaly Pelvis: normal rectal exam Extremities: non-tender Edema: 1+ Leg (L), 1+ Leg (R) Neurologic: alert Skin: normal pigmentation Carl Daniels May 14, 2017 20:14
--- NOTE | 2017-05-14 20:19 | General Progress Note ---
Assessment/Plan Problem List: (1) Anemia ICD Codes: D64.9 - Anemia, unspecified SNOMED: 386085290 (2) Renal failure ICD Codes: N19 - Unspecified kidney failure SNOMED: 58934476 (3) Pneumonia ICD Codes: J18.9 - Pneumonia, unspecified organism SNOMED: 437090088 (4) Acute exacerbation of CHF (congestive heart failure) ICD Codes: I50.9 - Heart failure, unspecified SNOMED: 83172137 (5) UTI (urinary tract infection) ICD Codes: N39.0 - Urinary tract infection, site not specified SNOMED: 38630095 (6) Respiratory failure with hypoxia ICD Codes: J96.91 - Respiratory failure, unspecified with hypoxia SNOMED: 87185120242265239 Status: progressing Assessment/Plan chf exacerbation improving pna improving uti abx per id afebrile reviewed chart and labs Subjective Respiratory: Reports: shortness of breath Allergies: Coded Allergies: No Known Allergies (Unverified , 05/12/17) Objective Last 24 Hour Vital Signs Date Time Temp Pulse Resp B/P (MAP) Pulse Ox O2 Delivery O2 Flow Rate FiO2 05/14/17 20:13 77 180/60 05/14/17 19:44 99 Nasal Cannula 2.0 28 05/14/17 19:44 Nasal Cannula 2.0 28 05/14/17 19:00 69 12 142/54 97 Nasal Cannula 2.0 05/14/17 18:00 70 12 158/84 96 Nasal Cannula 2.0 05/14/17 17:00 74 12 156/46 100 Nasal Cannula 2.0 05/14/17 16:16 152/42 05/14/17 16:00 97.8 68 14 152/42 96 Nasal Cannula 2.0 05/14/17 16:00 67 05/14/17 15:00 67 12 172/59 99 Nasal Cannula 2.0 05/14/17 14:05 164/60 05/14/17 14:05 66 164/60 05/14/17 14:00 66 12 164/60 98 Nasal Cannula 2.0 05/14/17 13:00 66 12 167/82 99 Room Air 05/14/17 12:00 63 05/14/17 12:00 97.9 67 14 165/63 95 Room Air 05/14/17 11:00 63 12 162/63 95 Room Air 05/14/17 10:14 167/60 05/14/17 10:00 67 10 167/60 95 Room Air 05/14/17 09:30 64 10 154/58 95 Nasal Cannula 2.0 05/14/17 09:00 64 11 147/56 95 Nasal Cannula 2.0 05/14/17 08:30 65 11 154/58 95 Nasal Cannula 2.0 05/14/17 08:19 67 147/62 05/14/17 08:18 147/62 05/14/17 08:00 68 05/14/17 08:00 98.1 68 12 147/62 95 Room Air 05/14/17 07:30 67 15 131/54 95 Nasal Cannula 2.0 05/14/17 07:16 Nasal Cannula 2.0 28 05/14/17 07:15 98 Nasal Cannula 2.0 28 05/14/17 07:00 65 12 135/51 97 Nasal Cannula 2.0 05/14/17 06:30 68 12 130/43 97 Nasal Cannula 2.0 05/14/17 06:00 71 13 148/38 99 Nasal Cannula 2.0 05/14/17 05:51 64 160/46 05/14/17 05:30 66 12 160/46 99 Nasal Cannula 2.0 05/14/17 05:00 66 12 155/49 98 Nasal Cannula 2.0 05/14/17 04:30 66 12 143/49 99 Nasal Cannula 2.0 05/14/17 04:07 66 05/14/17 04:00 98.0 68 12 151/52 98 Nasal Cannula 2.0 05/14/17 03:30 68 12 172/50 98 Nasal Cannula 2.0 05/14/17 03:30 178/53 05/14/17 03:00 68 12 173/58 99 Nasal Cannula 2.0 05/14/17 02:52 154/44 05/14/17 02:30 71 13 154/44 98 Nasal Cannula 2.0 05/14/17 02:00 66 13 161/47 93 Nasal Cannula 2.0 05/14/17 01:30 69 13 151/50 95 Nasal Cannula 2.0 05/14/17 01:00 68 13 141/59 93 Nasal Cannula 2.0 05/14/17 00:30 66 13 158/53 94 Nasal Cannula 2.0 05/14/17 00:02 69 05/14/17 00:00 98.4 65 12 151/51 94 Nasal Cannula 2.0 05/13/17 23:30 65 12 150/59 93 Nasal Cannula 2.0 05/13/17 23:00 65 15 154/55 100 Nasal Cannula 2.0 05/13/17 22:16 74 132/81 05/13/17 22:15 132/81 05/13/17 22:15 132/81 05/13/17 22:00 72 15 169/58 100 Nasal Cannula 2.0 05/13/17 21:00 70 15 173/55 100 Nasal Cannula 2.0 05/13/17 20:57 70 169/58 05/13/17 20:48 169/58 Intake and Output 05/14/17 05/15/17 19:00 07:00 Intake Total 646 ml Output Total 1575 ml Balance -929 ml Intake Oral 450 ml IV Total 136 ml Other 60 ml Output Urine Total 1575 ml Laboratory Tests 05/14/17 07:40: White Blood Count 4.5L, Red Blood Count 2.66L, Hemoglobin 8.0L, Hematocrit 24.8L , Mean Corpuscular Volume 93, Mean Corpuscular Hemoglobin 30.1, Mean Corpuscular Hemoglobin Concent 32.3, Red Cell Distribution Width 13.0, Platelet Count 183, Mean Platelet Volume 6.8, Neutrophils (%) (Auto) 69.6, Lymphocytes (% ) (Auto) 11.5L, Monocytes (%) (Auto) 10.6H, Eosinophils (%) (Auto) 6.6H, Basophils (%) (Auto) 1.6, Sodium Level 136, Potassium Level 4.2, Chloride Level 104, Carbon Dioxide Level 23, Anion Gap 9, Blood Urea Nitrogen 66H, Creatinine 4.0H, Estimat Glomerular Filtration Rate 11.1, Glucose Level 201H, Uric Acid 8.6H, Calcium Level 8.0L, Phosphorus Level 5.3H, Magnesium Level 1.7L, Total Bilirubin 0.7, Aspartate Amino Transf (AST/SGOT) 16, Alanine Aminotransferase ( ALT/SGPT) 10L, Alkaline Phosphatase 103, C-Reactive Protein, Quantitative 1.0H, Pro-B-Type Natriuretic Peptide > 09103U, Total Protein 6.2L, Albumin 2.7L, Globulin 3.5, Albumin/Globulin Ratio 0.8L Height (Feet): 5 Height (Inches): 0.00 Weight (Pounds): 160 Cardiovascular: normal rate Respiratory/Chest: chest wall non-tender Abdomen: non tender Makenna Daniel MD May 14, 2017 20:19
[2017-05-14] MEDS: Gabapentin 300 MG/6 ML Soln ORAL SCH (20:57)
[2017-05-15] VITALS (7 sets, daily range): BP systolic 143–178; BP diastolic 47–82
[2017-05-15] MEDS ORDERED: Morphine Sulfate 2mg/ml Inj IVP PRN (02:00)
[2017-05-15] MEDS: HydrALAZINE 50mg tab ORAL SCH ×4 (03:44→22:00)
[2017-05-15] MEDS: Levothyroxine 25mcg tab ORAL SCH (06:20)
--- NOTE | 2017-05-15 07:53 | Cardiology Report ---
APPROVED REPORT EXAM: Two-dimensional and M-mode echocardiogram with Doppler and color Doppler. INDICATION Left ventricular function M-Mode DIMENSIONS IVSd1.9 (0.7-1.1cm)Left Atrium (MM)5.0 (1.6-4.0cm) LVDd5.3 (3.5-5.6cm)Aortic Root3.0 (2.0-3.7cm) PWd1.7 (0.7-1.1cm)Aortic Cusp Exc.1.5 (1.5-2.0cm) LVDs4.2 (2.5-4.0cm) PWs2.0 cm Normal left ventricular chamber size, systolic function and wall motion. Left ventricular ejection fraction estimated to be 55-60%. Moderate left ventricular hypertrophy. Small to mild pericardial effusion. Right cardiac chamber sizes are within normal limits. Moderate left atrial enlargement by 2D. Focal aortic valve sclerosis with adequate cusp excursion. Thickened mitral valve leaflets with normal excursion. Mild mitral annulus and aortic root calcification. Pulmonic valve is well visualized. Normal tricuspid valve structure. IVC is normal in size and collapsible with respiration. A color flow and spectral Doppler study was performed and revealed: No aortic regurgitation. Trace mitral regurgitation. Mitral diastolic velocities suggest reduced left ventricular relaxation c/w diastolic dysfunction grade 1. Moderate tricuspid regurgitation. Tricuspid systolic velocities suggests peak right ventricular systolic pressure of 32mmHg
[2017-05-15] MEDS: Imdur 30mg tab ORAL SCH (09:40)
[2017-05-15 10:01] LABS: BASOPHILS % (AUTO) 1.8 % (0.0-2.0); EOSINOPHILS % (AUTO) 5.9 % (0.0-3.0); LYMPHOCYTES % (AUTO) 7.7 % (20.0-45.0); MEAN CORPUSCULAR HGB CONC 32.2 G/DL (32.0-36.0); MEAN CORPUSCULAR VOLUME 93 FL (80-99); MEAN PLATELET VOLUME 6.9 FL (6.5-10.1); MONOCYTES % (AUTO) 9.7 % (1.0-10.0); NEUTROPHILS % (AUTO) 74.9 % (45.0-75.0); PLATELET COUNT 186 K/UL (150-450); RED BLOOD COUNT 2.89 M/UL (4.20-5.40); RED CELL DISTRIBUTION WIDTH 13.2 % (11.6-14.8); WHITE BLOOD COUNT 3.9 K/UL (4.8-10.8)
[2017-05-15 11:00] LABS: CRP QUANT 1.4 mg/dL (0.00-0.90); MAGNESIUM 1.8 MG/DL (1.8-2.4); PHOSPHORUS 5.4 MG/DL (2.5-4.9)
--- NOTE | 2017-05-15 11:26 | Pulmonology Progress Note ---
Assessment/Plan Assessment/Plan 1. Pulmonary edema and pleural effusions. 2. Respiratory failure. 3. Renal failure. 4. Hypertension with hypertensive heart disease. 5. Diabetes. 6. Hyperlipidemia. 7. Hypothyroidism. breathing well BP better off BiPAP disc w RN pulm status improved Subjective Interval Events: None Constitutional: Reports: no symptoms HEENT: Repors: no symptoms Respiratory: Reports: no symptoms Allergies: Coded Allergies: No Known Allergies (Unverified , 05/12/17) Objective Last 24 Hour Vital Signs Date Time Temp Pulse Resp B/P (MAP) Pulse Ox O2 Delivery O2 Flow Rate FiO2 05/15/17 09:42 70 149/56 05/15/17 09:40 149/56 05/15/17 09:40 149/56 05/15/17 08:37 98.1 70 18 149/56 93 Room Air 05/15/17 06:21 70 154/70 05/15/17 04:00 97.0 70 20 155/64 97 Room Air 05/15/17 04:00 70 05/15/17 03:44 151/60 05/15/17 01:00 73 20 168/50 97 Room Air 05/15/17 00:45 168/50 05/15/17 00:00 97.7 73 20 178/47 95 Room Air 05/15/17 00:00 73 05/14/17 23:00 77 20 155/54 97 Room Air 05/14/17 22:01 73 162/49 05/14/17 22:00 74 20 165/47 95 Room Air 05/14/17 22:00 162/49 05/14/17 21:08 173/59 05/14/17 21:00 74 17 173/59 95 Room Air 05/14/17 20:13 77 180/60 05/14/17 20:00 97.7 77 12 180/60 95 Room Air 05/14/17 20:00 77 05/14/17 19:44 99 Nasal Cannula 2.0 28 05/14/17 19:44 Nasal Cannula 2.0 28 05/14/17 19:00 69 12 142/54 97 Nasal Cannula 2.0 05/14/17 18:00 70 12 158/84 96 Nasal Cannula 2.0 05/14/17 17:00 74 12 156/46 100 Nasal Cannula 2.0 05/14/17 16:16 152/42 10/12/17 16:00 97.8 68 14 152/42 96 Nasal Cannula 2.0 05/14/17 16:00 67 05/14/17 15:00 67 12 172/59 99 Nasal Cannula 2.0 05/14/17 14:05 164/60 05/14/17 14:05 66 164/60 05/14/17 14:00 66 12 164/60 98 Nasal Cannula 2.0 05/14/17 13:00 66 12 167/82 99 Room Air 05/14/17 12:00 63 05/14/17 12:00 97.9 67 14 165/63 95 Room Air Intake and Output 05/15/17 05/16/17 19:00 07:00 Intake Total 240 ml Balance 240 ml Intake Oral 240 ml # Voids 1 General Appearance: no acute distress HEENT: normocephalic Respiratory/Chest: chest wall non-tender Cardiovascular: normal peripheral pulses, normal rate Abdomen: normal bowel sounds Microbiology Date/Time Source Procedure Growth Status 05/12/17 17:50 Blood Blood Culture - Preliminary NO GROWTH AFTER 48 HOURS Resulted 05/12/17 16:00 Urine,Clean Catch Urine Culture - Final Mixed Urogenital Contaminants Complete Laboratory Tests 05/15/17 09:00: White Blood Count 3.9L, Red Blood Count 2.89L, Hemoglobin 8.7L, Hematocrit 27.0L , Mean Corpuscular Volume 93, Mean Corpuscular Hemoglobin 30.0, Mean Corpuscular Hemoglobin Concent 32.2, Red Cell Distribution Width 13.2, Platelet Count 186, Mean Platelet Volume 6.9, Neutrophils (%) (Auto) 74.9, Lymphocytes (% ) (Auto) 7.7L, Monocytes (%) (Auto) 9.7, Eosinophils (%) (Auto) 5.9H, Basophils (%) (Auto) 1.8, Uric Acid 8.0H, Phosphorus Level 5.4H, Magnesium Level 1.8, C- Reactive Protein, Quantitative 1.4H, Pro-B-Type Natriuretic Peptide > 18501R Current Medications Medications (Trade) Dose Ordered Sig/Toya Route PRN Reason Start Time Stop Time Status Last Admin Dose Admin Acetaminophen (Tylenol) 650 mg Q4H PRN ORAL Mild Pain/Temp > 100.5 05/15/17 01:54 06/11/17 01:53 Acetaminophen/ Hydrocodone Bitart ([place] 5/325) 1 tab Q4H PRN ORAL Mild Breakthrough Pain 05/15/17 01:57 05/20/17 01:56 Allopurinol (Allopurinol) 300 mg DAILY ORAL 05/15/17 09:00 06/13/17 13:59 05/15/17 09:38 Atorvastatin Calcium (Lipitor) 80 mg BEDTIME ORAL 05/15/17 21:00 06/11/17 20:59 Clonidine HCl (Catapres) 0.1 mg Q4H PRN ORAL bp over syst 160 05/15/17 05:00 06/11/17 04:59 Epoetin Panchito (Procrit (for non ESRD use)) 10,000 units THU-THU-THU SUBQ 05/15/17 21:00 06/12/17 20:59 Folic Acid (Folate) 5 mg DAILY ORAL 05/15/17 09:00 06/12/17 10:59 05/15/17 09:39 Furosemide (Lasix) 40 mg EVERY 12 HOURS IV 05/15/17 09:00 06/11/17 20:59 05/15/17 09:37 Gabapentin (Neurontin) 300 mg BEDTIME ORAL 05/15/17 21:00 06/11/17 20:59 Hydralazine HCl (Apresoline) 100 mg Q6H ORAL 05/15/17 04:00 06/12/17 21:59 05/15/17 09:40 Iron Sucrose 100 mg/Sodium Chloride 60 ml @ 240 mls/hr BEDTIME IV 05/15/17 21:00 05/16/17 21:01 Isosorbide Mononitrate (Imdur) 90 mg DAILY ORAL 05/15/17 09:00 06/12/17 20:59 05/15/17 09:40 Labetalol HCl (Normodyne) 300 mg Q8HR ORAL 05/15/17 06:00 06/11/17 13:59 05/15/17 06:21 Lansoprazole (Prevacid) 30 mg DAILY ORAL 05/15/17 09:00 06/11/17 15:59 05/15/17 09:38 Levothyroxine Sodium (Synthroid) 25 mcg DAILY@0630 ORAL 05/15/17 06:30 06/12/17 06:29 05/15/17 06:20 Levothyroxine Sodium (Synthroid) 112 mcg DAILY@0630 ORAL 05/15/17 06:30 06/12/17 06:29 05/15/17 06:19 Metolazone (Zaroxolyn) 5 mg DAILY@0830 ORAL 05/15/17 08:30 06/12/17 08:29 05/15/17 09:38 Morphine Sulfate (Morphine Sulfate) 2 mg Q4H PRN IVP For Pain Scale 4-10 05/15/17 02:00 05/19/17 01:59 Nifedipine (Procardia XL) 60 mg Q12HR ORAL 05/15/17 09:00 06/13/17 20:59 05/15/17 09:42 Levy Allen MD May 15, 2017 11:25
--- NOTE | 2017-05-15 13:42 | General Progress Note ---
Assessment/Plan Status: unchanged Assessment/Plan status; Acute respiratory failure- likely CHF Renal failure, acute on Chronic Diabetic Nephropathy HTN Anemia: low B12- and low Iron Plan: increase zaroxylin initiate dialysis and UF to monitor bed- adjust BP meds- B12 SQ po Folate IV Iron Optimize cardiac and respiratory status DC heredia keep BP and BS in check monitor renal parameters and Anemia yang 24 h urine in process CrCl 15 transfuse as needed Subjective ROS Limited/Unobtainable: No Constitutional: Reports: malaise, weakness, other - sob Allergies: Coded Allergies: No Known Allergies (Unverified , 05/12/17) Objective Last 24 Hour Vital Signs Date Time Temp Pulse Resp B/P (MAP) Pulse Ox O2 Delivery O2 Flow Rate FiO2 05/15/17 11:30 98.1 69 18 143/82 97 Room Air 05/15/17 09:42 70 149/56 05/15/17 09:40 149/56 05/15/17 09:40 149/56 05/15/17 08:37 98.1 70 18 149/56 93 Room Air 05/15/17 06:21 70 154/70 05/15/17 04:00 97.0 70 20 155/64 97 Room Air 05/15/17 04:00 70 05/15/17 03:44 151/60 05/15/17 01:00 73 20 168/50 97 Room Air 05/15/17 00:45 168/50 05/15/17 00:00 97.7 73 20 178/47 95 Room Air 05/15/17 00:00 73 05/14/17 23:00 77 20 155/54 97 Room Air 05/14/17 22:01 73 162/49 05/14/17 22:00 74 20 165/47 95 Room Air 05/14/17 22:00 162/49 05/14/17 21:08 173/59 05/14/17 21:00 74 17 173/59 95 Room Air 05/14/17 20:13 77 180/60 05/14/17 20:00 97.7 77 12 180/60 95 Room Air 05/14/17 20:00 77 05/14/17 19:44 99 Nasal Cannula 2.0 28 05/14/17 19:44 Nasal Cannula 2.0 28 05/14/17 19:00 69 12 142/54 97 Nasal Cannula 2.0 05/14/17 18:00 70 12 158/84 96 Nasal Cannula 2.0 05/14/17 17:00 74 12 156/46 100 Nasal Cannula 2.0 05/14/17 16:16 152/42 05/14/17 16:00 97.8 68 14 152/42 96 Nasal Cannula 2.0 05/14/17 16:00 67 05/14/17 15:00 67 12 172/59 99 Nasal Cannula 2.0 05/14/17 14:05 164/60 05/14/17 14:05 66 164/60 05/14/17 14:00 66 12 164/60 98 Nasal Cannula 2.0 Intake and Output 05/15/17 05/16/17 19:00 07:00 Intake Total 240 ml Balance 240 ml Intake Oral 240 ml # Voids 2 Laboratory Tests 05/15/17 06:00: Hepatitis B Surface Antigen [Pending], Hepatitis B Surface Antibody, Quant [ Pending], Hepatitis C Antibody [Pending] 05/15/17 09:00: White Blood Count 3.9L, Red Blood Count 2.89L, Hemoglobin 8.7L, Hematocrit 27.0L , Mean Corpuscular Volume 93, Mean Corpuscular Hemoglobin 30.0, Mean Corpuscular Hemoglobin Concent 32.2, Red Cell Distribution Width 13.2, Platelet Count 186, Mean Platelet Volume 6.9, Neutrophils (%) (Auto) 74.9, Lymphocytes (% ) (Auto) 7.7L, Monocytes (%) (Auto) 9.7, Eosinophils (%) (Auto) 5.9H, Basophils (%) (Auto) 1.8, Uric Acid 8.0H, Phosphorus Level 5.4H, Magnesium Level 1.8, C- Reactive Protein, Quantitative 1.4H, Pro-B-Type Natriuretic Peptide > 32415P Height (Feet): 5 Height (Inches): 0.00 Weight (Pounds): 160 General Appearance: no apparent distress, lethargic Cardiovascular: normal rate Respiratory/Chest: decreased breath sounds Abdomen: soft, distended Objective no other changes VOLODYMYR DOUGLAS May 15, 2017 13:42
[2017-05-15 14:21] LABS: OTHERS PATHOLOGIST COMMENT
--- NOTE | 2017-05-15 14:31 | Diagnostic Imaging Report ---
Indication: Dyspnea Comparison: 05/13/17 A single view chest radiograph was obtained. Findings: Interstitial edema prominent vascularity and heart size are noted. Findings appear unchanged. Impression: CHF. No change
--- NOTE | 2017-05-15 15:06 | General Progress Note ---
Assessment/Plan Assessment/Plan # Anemia of iron deficiency - low ferritin, begin on iv iron, as per renal team --> continue to watch counts # Anemia of kidney disease - on venofer as well as epogen, agree will improve and mobilize iron stores # Anemia of b12 deficiency - b12 im sq doses # Acute respiratory failure- likely CHF # Renal failure, acute on Chronic # Diabetic Nephropathy # HTN Subjective Constitutional: Reports: no symptoms HEENT: Reports: no symptoms Cardiovascular: Reports: no symptoms Respiratory: Reports: no symptoms Gastrointestinal/Abdominal: Reports: no symptoms Genitourinary: Reports: no symptoms Neurologic/Psychiatric: Reports: no symptoms Endocrine: Reports: no symptoms Hematologic/Lymphatic: Reports: no symptoms Allergies: Coded Allergies: No Known Allergies (Unverified , 05/12/17) Subjective NAD Objective Last 24 Hour Vital Signs Date Time Temp Pulse Resp B/P (MAP) Pulse Ox O2 Delivery O2 Flow Rate FiO2 05/15/17 12:00 67 05/15/17 11:30 98.1 69 18 143/82 97 Room Air 05/15/17 09:42 70 149/56 05/15/17 09:40 149/56 05/15/17 09:40 149/56 05/15/17 08:37 98.1 70 18 149/56 93 Room Air 05/15/17 08:00 70 05/15/17 06:21 70 154/70 05/15/17 04:00 97.0 70 20 155/64 97 Room Air 05/15/17 04:00 70 05/15/17 03:44 151/60 05/15/17 01:00 73 20 168/50 97 Room Air 05/15/17 00:45 168/50 05/15/17 00:00 97.7 73 20 178/47 95 Room Air 05/15/17 00:00 73 05/14/17 23:00 77 20 155/54 97 Room Air 05/14/17 22:01 73 162/49 05/14/17 22:00 74 20 165/47 95 Room Air 05/14/17 22:00 162/49 05/14/17 21:08 173/59 05/14/17 21:00 74 17 173/59 95 Room Air 05/14/17 20:13 77 180/60 05/14/17 20:00 97.7 77 12 180/60 95 Room Air 05/14/17 20:00 77 05/14/17 19:44 99 Nasal Cannula 2.0 28 05/14/17 19:44 Nasal Cannula 2.0 28 05/14/17 19:00 69 12 142/54 97 Nasal Cannula 2.0 05/14/17 18:00 70 12 158/84 96 Nasal Cannula 2.0 05/14/17 17:00 74 12 156/46 100 Nasal Cannula 2.0 05/14/17 16:16 152/42 05/14/17 16:00 97.8 68 14 152/42 96 Nasal Cannula 2.0 05/14/17 16:00 67 Intake and Output 05/15/17 05/16/17 19:00 07:00 Intake Total 440 ml Balance 440 ml Intake Oral 440 ml # Voids 2 Laboratory Tests 05/15/17 06:00: Hepatitis B Surface Antigen [Pending], Hepatitis B Surface Antibody, Quant [ Pending], Hepatitis C Antibody [Pending] 05/15/17 09:00: White Blood Count 3.9L, Red Blood Count 2.89L, Hemoglobin 8.7L, Hematocrit 27.0L , Mean Corpuscular Volume 93, Mean Corpuscular Hemoglobin 30.0, Mean Corpuscular Hemoglobin Concent 32.2, Red Cell Distribution Width 13.2, Platelet Count 186, Mean Platelet Volume 6.9, Neutrophils (%) (Auto) 74.9, Lymphocytes (% ) (Auto) 7.7L, Monocytes (%) (Auto) 9.7, Eosinophils (%) (Auto) 5.9H, Basophils (%) (Auto) 1.8, Uric Acid 8.0H, Phosphorus Level 5.4H, Magnesium Level 1.8, C- Reactive Protein, Quantitative 1.4H, Pro-B-Type Natriuretic Peptide > 95204C Height (Feet): 5 Height (Inches): 0.00 Weight (Pounds): 160 Neck: normal inspection Cardiovascular: no gallop/murmur Extremities: normal range of motion Edema: mild edema Neurologic: manager vehicle II-XII grossly normal Carl Daniels May 15, 2017 15:06
--- NOTE | 2017-05-15 15:38 | Diagnostic Imaging Report ---
Indication: Neck Pain Findings: 5 views of the cervical spine were obtained. There is extensive osteophytosis involving the vertebral endplates at C4-5, C5-6, C6-7, C7-T1. These levels are not seen well. Cervical spine is not seen adequately below C3. The foramina are not adequately evaluated. Soft tissues are not adequately seen in the mid to lower cervical spine. No marked view is negative. Impression: Very limited examination due to soft tissue attenuation. Significant abnormalities may be missed on this study. Moderate spondylosis as discussed above.
[2017-05-15 15:44] LABS: INR 1.1 (0.9-1.1); PROTHROMBIN TIME 11.2 SEC (9.30-11.50)
--- NOTE | 2017-05-15 18:09 | Infectious Diseases Prog Note ---
Assessment/Plan Problems: (1) Pneumonia Assessment & Plan: less likely , with B/L pleural effusion, improved on CXR with diuresis , suspect fluids due to CHF more than infectious etiology, blood culture is negative (2) Acute exacerbation of CHF (congestive heart failure) Assessment & Plan: improving , continue diuresis , cardiology is following (3) Respiratory failure with hypoxia Assessment & Plan: due to the above, improving, off BIBAP, now on nasal canula , pulmonary is following , monitor ABG and CXR (4) Renal failure Assessment & Plan: unclear whether acute or chronic , avoid nephrotoxic meds , monitor UOP (5) UTI (urinary tract infection) Assessment & Plan: with culture grew contaminant , monitor off antibiotics Subjective Constitutional: Reports: no symptoms HEENT: Reports: no symptoms Respiratory: Reports: no symptoms Breasts: Reports: no symptoms Cardiovascular: Reports: no symptoms Gastrointestinal/Abdominal: Reports: no symptoms Genitourinary: Reports: no symptoms Neurologic: Reports: no symptoms Psychiatric: Reports: no symptoms Skin: Reports: no symptoms Endocrine: Reports: no symptoms Hematologic: Reports: no symptoms Musculoskeletal: Reports: no symptoms Allergies: Coded Allergies: No Known Allergies (Unverified , 05/12/17) Objective Vital Signs Last 24 Hour Vital Signs Date Time Temp Pulse Resp B/P (MAP) Pulse Ox O2 Delivery O2 Flow Rate FiO2 05/15/17 16:00 67 05/15/17 15:37 97.7 67 18 146/57 95 Room Air 05/15/17 12:00 67 05/15/17 11:30 98.1 69 18 143/82 97 Room Air 05/15/17 09:42 70 149/56 05/15/17 09:40 149/56 05/15/17 09:40 149/56 05/15/17 08:37 98.1 70 18 149/56 93 Room Air 05/15/17 08:00 70 05/15/17 06:21 70 154/70 05/15/17 04:00 97.0 70 20 155/64 97 Room Air 05/15/17 04:00 70 05/15/17 03:44 151/60 05/15/17 01:00 73 20 168/50 97 Room Air 05/15/17 00:45 168/50 05/15/17 00:00 97.7 73 20 178/47 95 Room Air 05/15/17 00:00 73 05/14/17 23:00 77 20 155/54 97 Room Air 05/14/17 22:01 73 162/49 05/14/17 22:00 74 20 165/47 95 Room Air 05/14/17 22:00 162/49 05/14/17 21:08 173/59 05/14/17 21:00 74 17 173/59 95 Room Air 05/14/17 20:13 77 180/60 05/14/17 20:00 97.7 77 12 180/60 95 Room Air 05/14/17 20:00 77 05/14/17 19:44 99 Nasal Cannula 2.0 28 05/14/17 19:44 Nasal Cannula 2.0 28 05/14/17 19:00 69 12 142/54 97 Nasal Cannula 2.0 Height (Feet): 5 Height (Inches): 0.00 Weight (Pounds): 160 General Appearance: WD/WN, no acute distress HEENT: normocephalic, atraumatic, anicteric, mucous membranes moist, PERRL Respiratory/Chest: chest wall non-tender, no respiratory distress, no accessory muscle use, decreased breath sounds, crackles/rales Cardiovascular: normal peripheral pulses, normal rate, regular rhythm, no gallop/murmur, no JVD Abdomen: normal bowel sounds, soft, non tender, no organomegaly, non distended , no mass, no scars Genitourinary: normal external genitalia Extremities: no cyanosis, no clubbing Skin: no rash, no lesions, no ulcers Neurologic/Psychiatric: alert, oriented x 3, responsive Lymphatic: no neck adenopathy, no groin adenopathy Musculoskeletal: normal muscle bulk, no effusion Laboratory Tests Test 05/15/17 06:00 05/15/17 09:00 05/15/17 15:00 Hepatitis B Surface Antigen Pending Hepatitis B Surface Antibody, Quant Pending Hepatitis C Antibody Pending White Blood Count 3.9 K/UL (4.8-10.8) L Red Blood Count 2.89 M/UL (4.20-5.40) L Hemoglobin 8.7 G/DL (12.0-16.0) L Hematocrit 27.0 % (37.0-47.0) L Mean Corpuscular Volume 93 FL (80-99) Mean Corpuscular Hemoglobin 30.0 PG (27.0-31.0) Mean Corpuscular Hemoglobin Concent 32.2 G/DL (32.0-36.0) Red Cell Distribution Width 13.2 % (11.6-14.8) Platelet Count 186 K/UL (150-450) Mean Platelet Volume 6.9 FL (6.5-10.1) Neutrophils (%) (Auto) 74.9 % (45.0-75.0) Lymphocytes (%) (Auto) 7.7 % (20.0-45.0) L Monocytes (%) (Auto) 9.7 % (1.0-10.0) Eosinophils (%) (Auto) 5.9 % (0.0-3.0) H Basophils (%) (Auto) 1.8 % (0.0-2.0) Uric Acid 8.0 MG/DL (2.6-7.2) H Phosphorus Level 5.4 MG/DL (2.5-4.9) H Magnesium Level 1.8 MG/DL (1.8-2.4) C-Reactive Protein, Quantitative 1.4 mg/dL (0.00-0.90) H Pro-B-Type Natriuretic Peptide > 78266 (0-125) H Prothrombin Time 11.2 SEC (9.30-11.50) Prothromb Time International Ratio 1.1 (0.9-1.1) Activated Partial Thromboplast Time 31 SEC (23-33) Current Medications Medications (Trade) Dose Ordered Sig/Toya Route PRN Reason Start Time Stop Time Status Last Admin Dose Admin Acetaminophen (Tylenol) 650 mg Q4H PRN ORAL Mild Pain/Temp > 100.5 05/15/17 01:54 06/11/17 01:53 Acetaminophen/ Hydrocodone Bitart ([place] 5/325) 1 tab Q4H PRN ORAL Mild Breakthrough Pain 05/15/17 01:57 05/20/17 01:56 Allopurinol (Allopurinol) 300 mg DAILY ORAL 05/15/17 09:00 06/13/17 13:59 05/15/17 09:38 Atorvastatin Calcium (Lipitor) 80 mg BEDTIME ORAL 05/15/17 21:00 06/11/17 20:59 Clonidine HCl (Catapres) 0.1 mg Q4H PRN ORAL bp over syst 160 05/15/17 05:00 06/11/17 04:59 Epoetin Panchito (Procrit (for non ESRD use)) 10,000 units THU-THU-THU SUBQ 05/15/17 21:00 06/12/17 20:59 Folic Acid (Folate) 5 mg DAILY ORAL 05/15/17 09:00 06/12/17 10:59 05/15/17 09:39 Gabapentin (Neurontin) 300 mg BEDTIME ORAL 05/15/17 21:00 06/11/17 20:59 Hydralazine HCl (Apresoline) 100 mg Q8HR ORAL 05/15/17 14:00 06/14/17 13:59 Iron Sucrose 100 mg/Sodium Chloride 60 ml @ 240 mls/hr BEDTIME IV 05/15/17 21:00 05/16/17 21:01 Isosorbide Mononitrate (Imdur) 90 mg DAILY ORAL 05/15/17 09:00 06/12/17 20:59 05/15/17 09:40 Lansoprazole (Prevacid) 30 mg DAILY ORAL 05/15/17 09:00 06/11/17 15:59 05/15/17 09:38 Levothyroxine Sodium (Synthroid) 25 mcg DAILY@0630 ORAL 05/15/17 06:30 06/12/17 06:29 05/15/17 06:20 Levothyroxine Sodium (Synthroid) 112 mcg DAILY@0630 ORAL 05/15/17 06:30 06/12/17 06:29 05/15/17 06:19 Metolazone (Zaroxolyn) 10 mg BID ORAL 05/15/17 18:00 06/12/17 08:29 Metoprolol Tartrate (Lopressor) 50 mg Q12HR ORAL 05/15/17 21:00 06/14/17 20:59 Nifedipine (Procardia XL) 60 mg Q12HR ORAL 05/15/17 09:00 06/13/17 20:59 05/15/17 09:42 Anel Porras M.D. May 15, 2017 18:09
--- NOTE | 2017-05-15 20:38 | General Progress Note ---
Assessment/Plan Problem List: (1) Anemia ICD Codes: D64.9 - Anemia, unspecified SNOMED: 959422022 (2) Renal failure ICD Codes: N19 - Unspecified kidney failure SNOMED: 26024711 (3) Pneumonia ICD Codes: J18.9 - Pneumonia, unspecified organism SNOMED: 892935179 (4) Acute exacerbation of CHF (congestive heart failure) ICD Codes: I50.9 - Heart failure, unspecified SNOMED: 00017716 (5) UTI (urinary tract infection) ICD Codes: N39.0 - Urinary tract infection, site not specified SNOMED: 86404511 (6) Respiratory failure with hypoxia ICD Codes: J96.91 - Respiratory failure, unspecified with hypoxia SNOMED: 85474115047909863 Status: progressing Assessment/Plan chf exacerbation improving off icu reviewed chart and labs uti is improving Subjective Respiratory: Reports: shortness of breath Allergies: Coded Allergies: No Known Allergies (Unverified , 05/12/17) Objective Last 24 Hour Vital Signs Date Time Temp Pulse Resp B/P (MAP) Pulse Ox O2 Delivery O2 Flow Rate FiO2 05/15/17 20:00 97.7 72 18 163/61 95 Room Air 2.0 28 05/15/17 16:00 67 05/15/17 15:37 97.7 67 18 146/57 95 Room Air 05/15/17 12:00 67 05/15/17 11:30 98.1 69 18 143/82 97 Room Air 05/15/17 09:42 70 149/56 05/15/17 09:40 149/56 05/15/17 09:40 149/56 05/15/17 08:37 98.1 70 18 149/56 93 Room Air 05/15/17 08:00 70 05/15/17 06:21 70 154/70 05/15/17 04:00 97.0 70 20 155/64 97 Room Air 05/15/17 04:00 70 05/15/17 03:44 151/60 05/15/17 01:00 73 20 168/50 97 Room Air 05/15/17 00:45 168/50 05/15/17 00:00 97.7 73 20 178/47 95 Room Air 05/15/17 00:00 73 05/14/17 23:00 77 20 155/54 97 Room Air 05/14/17 22:01 73 162/49 05/14/17 22:00 74 20 165/47 95 Room Air 05/14/17 22:00 162/49 05/14/17 21:08 173/59 05/14/17 21:00 74 17 173/59 95 Room Air Intake and Output 05/15/17 05/16/17 19:00 07:00 Intake Total 680 ml Balance 680 ml Intake Oral 680 ml # Voids 3 Laboratory Tests 05/15/17 06:00: Hepatitis B Surface Antigen [Pending], Hepatitis B Surface Antibody, Quant [ Pending], Hepatitis C Antibody [Pending] 05/15/17 09:00: White Blood Count 3.9L, Red Blood Count 2.89L, Hemoglobin 8.7L, Hematocrit 27.0L , Mean Corpuscular Volume 93, Mean Corpuscular Hemoglobin 30.0, Mean Corpuscular Hemoglobin Concent 32.2, Red Cell Distribution Width 13.2, Platelet Count 186, Mean Platelet Volume 6.9, Neutrophils (%) (Auto) 74.9, Lymphocytes (% ) (Auto) 7.7L, Monocytes (%) (Auto) 9.7, Eosinophils (%) (Auto) 5.9H, Basophils (%) (Auto) 1.8, Uric Acid 8.0H, Phosphorus Level 5.4H, Magnesium Level 1.8, C- Reactive Protein, Quantitative 1.4H, Pro-B-Type Natriuretic Peptide > 34884I 05/15/17 15:00: Prothrombin Time 11.2, Prothromb Time International Ratio 1.1, Activated Partial Thromboplast Time 31 Height (Feet): 5 Height (Inches): 0.00 Weight (Pounds): 160 Cardiovascular: normal rate Respiratory/Chest: lungs clear Abdomen: soft Makenna Daniel MD May 15, 2017 20:38
[2017-05-15] MEDS: Metoprolol Tartrate 50mg tab ORAL SCH (21:00)
[2017-05-15] MEDS: Epogen (for non ESRD use) SUBQ SCH (21:00)
[2017-05-15] MEDS: Gabapentin 300 MG/6 ML Soln ORAL SCH (21:00)
[2017-05-15] MEDS: Iron Sucrose 100 MG in NS 55 ML IV SCH (21:00)
[2017-05-15] MEDS ORDERED: Atorvastatin 80mg tab ORAL SCH (21:00)
--- NOTE | 2017-05-15 22:35 | Cardiology Progress Note ---
Assessment/Plan Assessment/Plan 1. Dyspnea likely due to hypervolemia associated with CKD, echocardiography reveals normal LV systolic function with diastolic data consistent with normal intra-cardiac filling pressure, although there is element of abnormal LV relaxation due to hypertension, scheduled for HD/ultrafiltration. 2. HTN emergency with end-organ damage, optimize clonidine, beta-blockers, calcium- channel blockers, and metolazone. 3. Small pericardial effusion, scheduled for hemodialysis. 4. ESRD Subjective Subjective Sinus rhythm at 72. Transferred out to the telemetry. Objective Last 24 Hour Vital Signs Date Time Temp Pulse Resp B/P (MAP) Pulse Ox O2 Delivery O2 Flow Rate FiO2 05/15/17 21:39 Room Air 05/15/17 21:38 95 Room Air 05/15/17 21:00 139/54 05/15/17 20:00 97.7 72 18 163/61 95 Room Air 2.0 28 05/15/17 16:00 67 05/15/17 15:37 97.7 67 18 146/57 95 Room Air 05/15/17 12:00 67 05/15/17 11:30 98.1 69 18 143/82 97 Room Air 05/15/17 09:42 70 149/56 05/15/17 09:40 149/56 05/15/17 09:40 149/56 05/15/17 08:37 98.1 70 18 149/56 93 Room Air 05/15/17 08:00 70 05/15/17 06:21 70 154/70 05/15/17 04:00 97.0 70 20 155/64 97 Room Air 05/15/17 04:00 70 05/15/17 03:44 151/60 05/15/17 01:00 73 20 168/50 97 Room Air 05/15/17 00:45 168/50 05/15/17 00:00 97.7 73 20 178/47 95 Room Air 05/15/17 00:00 73 05/14/17 23:00 77 20 155/54 97 Room Air Intake and Output 05/15/17 05/16/17 19:00 07:00 Intake Total 680 ml Balance 680 ml Intake Oral 680 ml # Voids 3 2D Echo: LVEF 55%, small pericardial effusion, grade I LVDD, RVSP 32 mmHg Laboratory Tests Test 05/15/17 06:00 05/15/17 09:00 10/13/17 15:00 Hepatitis B Surface Antigen Pending Hepatitis B Surface Antibody, Quant Pending Hepatitis C Antibody Pending White Blood Count 3.9 K/UL (4.8-10.8) L Red Blood Count 2.89 M/UL (4.20-5.40) L Hemoglobin 8.7 G/DL (12.0-16.0) L Hematocrit 27.0 % (37.0-47.0) L Mean Corpuscular Volume 93 FL (80-99) Mean Corpuscular Hemoglobin 30.0 PG (27.0-31.0) Mean Corpuscular Hemoglobin Concent 32.2 G/DL (32.0-36.0) Red Cell Distribution Width 13.2 % (11.6-14.8) Platelet Count 186 K/UL (150-450) Mean Platelet Volume 6.9 FL (6.5-10.1) Neutrophils (%) (Auto) 74.9 % (45.0-75.0) Lymphocytes (%) (Auto) 7.7 % (20.0-45.0) L Monocytes (%) (Auto) 9.7 % (1.0-10.0) Eosinophils (%) (Auto) 5.9 % (0.0-3.0) H Basophils (%) (Auto) 1.8 % (0.0-2.0) Uric Acid 8.0 MG/DL (2.6-7.2) H Phosphorus Level 5.4 MG/DL (2.5-4.9) H Magnesium Level 1.8 MG/DL (1.8-2.4) C-Reactive Protein, Quantitative 1.4 mg/dL (0.00-0.90) H Pro-B-Type Natriuretic Peptide > 23451 (0-125) H Prothrombin Time 11.2 SEC (9.30-11.50) Prothromb Time International Ratio 1.1 (0.9-1.1) Activated Partial Thromboplast Time 31 SEC (23-33) Objective HEENT: Atraumatic and normocephalic. Pupils are equal, round, and reactive to light and accommodation. Extraocular muscles are intact. NECK: JVP is elevated about 10 to 15 cm. No carotid bruit. Carotid upstrokes 2+ bilaterally. CARDIOVASCULAR: Normal S1, S2. Regular rate and rhythm. There is a 2/6 mid systolic murmur at the left sternal border. There is no pericardial rub. PMI is at 4th intercostal space in the midclavicular line. LUNGS: Bibasilar crackles. ABDOMEN: Soft, nontender, and nondistended. No hepatosplenomegaly. Positive bowel sounds. EXTREMITIES: There is 1+ pitting edema bilaterally. NATI VOGEL May 15, 2017 22:35
[2017-05-16] VITALS: BP 164/69
[2017-05-16 04:00] VITALS: BP 133/58
[2017-05-16] MEDS: HydrALAZINE 50mg tab ORAL SCH ×3 (06:29→22:10)
[2017-05-16] MEDS: Levothyroxine 25mcg tab ORAL SCH (06:41)
[2017-05-16 07:38] LABS: BASOPHILS % (AUTO) 1.2 % (0.0-2.0); EOSINOPHILS % (AUTO) 4.6 % (0.0-3.0); LYMPHOCYTES % (AUTO) 13.2 % (20.0-45.0); MEAN CORPUSCULAR HEMOGLOBIN 30.3 PG (27.0-31.0); MEAN CORPUSCULAR HGB CONC 32.4 G/DL (32.0-36.0); MEAN CORPUSCULAR VOLUME 93 FL (80-99); MEAN PLATELET VOLUME 7.1 FL (6.5-10.1); MONOCYTES % (AUTO) 9.3 % (1.0-10.0); NEUTROPHILS % (AUTO) 71.6 % (45.0-75.0); PLATELET COUNT 193 K/UL (150-450); RED BLOOD COUNT 2.79 M/UL (4.20-5.40); RED CELL DISTRIBUTION WIDTH 13.1 % (11.6-14.8); WHITE BLOOD COUNT 4.5 K/UL (4.8-10.8)
[2017-05-16 07:57] LABS: ALANINE AMINOTRANSFERASE 10 U/L (12-78); ALBUMIN/GLOBULIN RATIO 0.8 (1.0-2.7); ANION GAP 7 (5-15); ASPARTATE AMINO TRANSFERASE 13 U/L (15-37); CALCIUM 8.4 MG/DL (8.5-10.1); CARBON DIOXIDE 26 MMOL/L (21-32); CHLORIDE 100 MMOL/L (98-107); CREATININE 4.7 MG/DL (0.55-1.30); CRP QUANT 1.5 mg/dL (0.00-0.90); GLOMERULAR FILTRATION RATE 9.3 mL/min (>60); MAGNESIUM 1.9 MG/DL (1.8-2.4); PHOSPHORUS 5.4 MG/DL (2.5-4.9); POTASSIUM 4.1 MMOL/L (3.5-5.1); SODIUM 133 MMOL/L (136-145); TOTAL PROTEIN 6.3 G/DL (6.4-8.2)
[2017-05-16 08:20] VITALS: BP 146/57
[2017-05-16] MEDS: Imdur 30mg tab ORAL SCH (09:03)
[2017-05-16] MEDS: Metoprolol Tartrate 50mg tab ORAL SCH ×2 (09:03→21:16)
[2017-05-16 10:07] LABS: FOLIC ACID 43.2 NG/ML (3.1-17.5)
--- NOTE | 2017-05-16 10:40 | General Progress Note ---
Assessment/Plan Status: unchanged, deteriorating - serum Cr Assessment/Plan status; Acute respiratory failure- likely CHF Renal failure, acute on Chronic Diabetic Nephropathy HTN Anemia: low B12- and low Iron Plan: increase zaroxylin initiate dialysis and UF- catheter ordered 05/15 was not yet placed !!!! to monitor bed- adjust BP meds- B12 SQ po Folate IV Iron Optimize cardiac and respiratory status DC heredia keep BP and BS in check monitor renal parameters and Anemia yang 24 h urine in process CrCl 15 transfuse as needed Subjective ROS Limited/Unobtainable: No Constitutional: Reports: malaise, weakness Allergies: Coded Allergies: No Known Allergies (Unverified , 05/12/17) Objective Last 24 Hour Vital Signs Date Time Temp Pulse Resp B/P (MAP) Pulse Ox O2 Delivery O2 Flow Rate FiO2 05/16/17 09:03 70 146/57 05/16/17 09:03 146/57 05/16/17 09:02 70 146/57 05/16/17 08:20 98.2 70 18 146/57 93 Room Air 05/16/17 06:29 136/59 05/16/17 04:17 76 05/16/17 04:00 98.4 74 20 133/58 95 Room Air 2.0 28 05/16/17 00:00 98.4 76 18 164/69 95 Room Air 2.0 28 05/15/17 23:07 77 05/15/17 22:00 161/62 05/15/17 21:39 Room Air 05/15/17 21:38 95 Room Air 05/15/17 21:00 139/54 05/15/17 21:00 64 161/65 05/15/17 20:00 77 05/15/17 20:00 97.7 72 18 163/61 95 Room Air 2.0 28 05/15/17 16:00 67 05/15/17 15:37 97.7 67 18 146/57 95 Room Air 05/15/17 12:00 67 05/15/17 11:30 98.1 69 18 143/82 97 Room Air Laboratory Tests 05/15/17 15:00: Prothrombin Time 11.2, Prothromb Time International Ratio 1.1, Activated Partial Thromboplast Time 31 05/16/17 05:10: White Blood Count 4.5L, Red Blood Count 2.79L, Hemoglobin 8.4L, Hematocrit 26.1L , Mean Corpuscular Volume 93, Mean Corpuscular Hemoglobin 30.3, Mean Corpuscular Hemoglobin Concent 32.4, Red Cell Distribution Width 13.1, Platelet Count 193, Mean Platelet Volume 7.1, Neutrophils (%) (Auto) 71.6, Lymphocytes (% ) (Auto) 13.2L, Monocytes (%) (Auto) 9.3, Eosinophils (%) (Auto) 4.6H, Basophils (%) (Auto) 1.2, Sodium Level 133L, Potassium Level 4.1, Chloride Level 100, Carbon Dioxide Level 26, Anion Gap 7, Blood Urea Nitrogen 79H, Creatinine 4.7H, Estimat Glomerular Filtration Rate 9.3, Glucose Level 309H, Uric Acid 8.0H, Calcium Level 8.4L, Phosphorus Level 5.4H, Magnesium Level 1.9, Total Bilirubin 0.3, Aspartate Amino Transf (AST/SGOT) 13L, Alanine Aminotransferase (ALT/SGPT) 10L, Alkaline Phosphatase 111, C-Reactive Protein, Quantitative 1.5H, Total Protein 6.3L, Albumin 2.7L, Globulin 3.6, Albumin/ Globulin Ratio 0.8L, Vitamin B12 Level 6312H, Folate 43.2H Height (Feet): 5 Height (Inches): 0.00 Weight (Pounds): 160 General Appearance: no apparent distress, other - comfy at rest Cardiovascular: normal rate Respiratory/Chest: decreased breath sounds Abdomen: soft Objective no other changes VOLODYMYR DOUGLAS May 16, 2017 10:40
--- NOTE | 2017-05-16 10:44 | General Progress Note ---
Assessment/Plan Problem List: (1) Renal failure ICD Codes: N19 - Unspecified kidney failure SNOMED: 65600054 (2) Pneumonia ICD Codes: J18.9 - Pneumonia, unspecified organism SNOMED: 687396383 (3) Respiratory failure with hypoxia ICD Codes: J96.91 - Respiratory failure, unspecified with hypoxia SNOMED: 31925057320526021 (4) UTI (urinary tract infection) ICD Codes: N39.0 - Urinary tract infection, site not specified SNOMED: 54538744 (5) Anemia ICD Codes: D64.9 - Anemia, unspecified SNOMED: 116589005 (6) Acute exacerbation of CHF (congestive heart failure) ICD Codes: I50.9 - Heart failure, unspecified SNOMED: 66065387 Status: stable, progressing, tolerating diet Assessment/Plan o2 pulm tx ot pt diet abx cbc bmp am Subjective Constitutional: Reports: weakness Allergies: Coded Allergies: No Known Allergies (Unverified , 05/12/17) All Systems: reviewed and negative except above Subjective sleepy calm Objective Last 24 Hour Vital Signs Date Time Temp Pulse Resp B/P (MAP) Pulse Ox O2 Delivery O2 Flow Rate FiO2 05/16/17 09:03 70 146/57 05/16/17 09:03 146/57 05/16/17 09:02 70 146/57 05/16/17 08:20 98.2 70 18 146/57 93 Room Air 05/16/17 06:29 136/59 05/16/17 04:17 76 05/16/17 04:00 98.4 74 20 133/58 95 Room Air 2.0 28 05/16/17 00:00 98.4 76 18 164/69 95 Room Air 2.0 28 05/15/17 23:07 77 05/15/17 22:00 161/62 05/15/17 21:39 Room Air 05/15/17 21:38 95 Room Air 05/15/17 21:00 139/54 05/15/17 21:00 64 161/65 05/15/17 20:00 77 05/15/17 20:00 97.7 72 18 163/61 95 Room Air 2.0 28 05/15/17 16:00 67 05/15/17 15:37 97.7 67 18 146/57 95 Room Air 05/15/17 12:00 67 05/15/17 11:30 98.1 69 18 143/82 97 Room Air Laboratory Tests 05/15/17 15:00: Prothrombin Time 11.2, Prothromb Time International Ratio 1.1, Activated Partial Thromboplast Time 31 05/16/17 05:10: White Blood Count 4.5L, Red Blood Count 2.79L, Hemoglobin 8.4L, Hematocrit 26.1L , Mean Corpuscular Volume 93, Mean Corpuscular Hemoglobin 30.3, Mean Corpuscular Hemoglobin Concent 32.4, Red Cell Distribution Width 13.1, Platelet Count 193, Mean Platelet Volume 7.1, Neutrophils (%) (Auto) 71.6, Lymphocytes (% ) (Auto) 13.2L, Monocytes (%) (Auto) 9.3, Eosinophils (%) (Auto) 4.6H, Basophils (%) (Auto) 1.2, Sodium Level 133L, Potassium Level 4.1, Chloride Level 100, Carbon Dioxide Level 26, Anion Gap 7, Blood Urea Nitrogen 79H, Creatinine 4.7H, Estimat Glomerular Filtration Rate 9.3, Glucose Level 309H, Uric Acid 8.0H, Calcium Level 8.4L, Phosphorus Level 5.4H, Magnesium Level 1.9, Total Bilirubin 0.3, Aspartate Amino Transf (AST/SGOT) 13L, Alanine Aminotransferase (ALT/SGPT) 10L, Alkaline Phosphatase 111, C-Reactive Protein, Quantitative 1.5H, Total Protein 6.3L, Albumin 2.7L, Globulin 3.6, Albumin/ Globulin Ratio 0.8L, Vitamin B12 Level 6312H, Folate 43.2H Height (Feet): 5 Height (Inches): 0.00 Weight (Pounds): 160 General Appearance: lethargic EENT: normal ENT inspection Neck: normal alignment Cardiovascular: normal peripheral pulses, normal rate, regular rhythm Respiratory/Chest: chest wall non-tender, lungs clear, normal breath sounds Abdomen: normal bowel sounds, non tender, soft Extremities: normal inspection Edema: no edema noted Arm (L), no edema noted Arm (R), no edema noted Leg (L), no edema noted Leg (R), no edema noted Pedal (L), no edema noted Pedal (R), no edema noted Generalized Neurologic: motor weakness Skin: normal pigmentation, warm/dry SMITH,LATIA May 16, 2017 10:44
[2017-05-16 11:54] VITALS: BP 144/61
--- NOTE | 2017-05-16 14:58 | Infectious Diseases Prog Note ---
Assessment/Plan Problems: (1) Acute exacerbation of CHF (congestive heart failure) Assessment & Plan: improving , didn't tolerate diuresis well with worsening renal function , may need HD , nephrology and cardiology are following (2) Respiratory failure with hypoxia Assessment & Plan: due to the above, improving, off BIBAP, now on room air , pulmonary is following , monitor CXR (3) Renal failure Assessment & Plan: unclear whether acute or chronic , avoid nephrotoxic meds , monitor UOP (4) UTI (urinary tract infection) Assessment & Plan: with culture grew contaminant only , monitor off antibiotics Subjective Constitutional: Reports: no symptoms HEENT: Reports: no symptoms Respiratory: Reports: dry cough Breasts: Reports: no symptoms Cardiovascular: Reports: no symptoms Gastrointestinal/Abdominal: Reports: no symptoms Genitourinary: Reports: no symptoms Neurologic: Reports: no symptoms Psychiatric: Reports: no symptoms Skin: Reports: no symptoms Endocrine: Reports: no symptoms Hematologic: Reports: no symptoms Musculoskeletal: Reports: no symptoms Allergies: Coded Allergies: No Known Allergies (Unverified , 05/12/17) Objective Vital Signs Last 24 Hour Vital Signs Date Time Temp Pulse Resp B/P (MAP) Pulse Ox O2 Delivery O2 Flow Rate FiO2 05/16/17 13:17 144/61 05/16/17 11:56 67 05/16/17 11:54 97.1 68 18 144/61 95 Room Air 05/16/17 09:03 70 146/57 05/16/17 09:03 146/57 05/16/17 09:02 70 146/57 05/16/17 08:20 98.2 70 18 146/57 93 Room Air 05/16/17 08:06 69 05/16/17 06:29 136/59 05/16/17 04:17 76 05/16/17 04:00 98.4 74 20 133/58 95 Room Air 2.0 28 05/16/17 00:00 98.4 76 18 164/69 95 Room Air 2.0 28 05/15/17 23:07 77 05/15/17 22:00 161/62 05/15/17 21:39 Room Air 05/15/17 21:38 95 Room Air 05/15/17 21:00 139/54 05/15/17 21:00 64 161/65 05/15/17 20:00 77 05/15/17 20:00 97.7 72 18 163/61 95 Room Air 2.0 28 05/15/17 16:00 67 05/15/17 15:37 97.7 67 18 146/57 95 Room Air Height (Feet): 5 Height (Inches): 0.00 Weight (Pounds): 160 General Appearance: WD/WN, no acute distress HEENT: normocephalic, atraumatic, anicteric, mucous membranes moist, PERRL, EOMI, pharynx normal, supple, no JVD Respiratory/Chest: chest wall non-tender, no respiratory distress, no accessory muscle use, decreased breath sounds, crackles/rales Cardiovascular: normal peripheral pulses, normal rate, regular rhythm, no gallop/murmur, no JVD Abdomen: normal bowel sounds, soft, non tender, no organomegaly, non distended , no mass, no scars Extremities: no cyanosis, no clubbing Skin: no rash, no lesions, no ulcers Neurologic/Psychiatric: alert, oriented x 3, responsive Lymphatic: no neck adenopathy Musculoskeletal: normal muscle bulk, no effusion Laboratory Tests Test 05/15/17 15:00 05/16/17 05:10 Prothrombin Time 11.2 SEC (9.30-11.50) Prothromb Time International Ratio 1.1 (0.9-1.1) Activated Partial Thromboplast Time 31 SEC (23-33) White Blood Count 4.5 K/UL (4.8-10.8) L Red Blood Count 2.79 M/UL (4.20-5.40) L Hemoglobin 8.4 G/DL (12.0-16.0) L Hematocrit 26.1 % (37.0-47.0) L Mean Corpuscular Volume 93 FL (80-99) Mean Corpuscular Hemoglobin 30.3 PG (27.0-31.0) Mean Corpuscular Hemoglobin Concent 32.4 G/DL (32.0-36.0) Red Cell Distribution Width 13.1 % (11.6-14.8) Platelet Count 193 K/UL (150-450) Mean Platelet Volume 7.1 FL (6.5-10.1) Neutrophils (%) (Auto) 71.6 % (45.0-75.0) Lymphocytes (%) (Auto) 13.2 % (20.0-45.0) L Monocytes (%) (Auto) 9.3 % (1.0-10.0) Eosinophils (%) (Auto) 4.6 % (0.0-3.0) H Basophils (%) (Auto) 1.2 % (0.0-2.0) Sodium Level 133 MMOL/L (136-145) L Potassium Level 4.1 MMOL/L (3.5-5.1) Chloride Level 100 MMOL/L (98-107) Carbon Dioxide Level 26 MMOL/L (21-32) Anion Gap 7 (5-15) Blood Urea Nitrogen 79 mg/dL (7-18) H Creatinine 4.7 MG/DL (0.55-1.30) H Estimat Glomerular Filtration Rate 9.3 mL/min (>60) Glucose Level 309 MG/DL (74-106) H Uric Acid 8.0 MG/DL (2.6-7.2) H Calcium Level 8.4 MG/DL (8.5-10.1) L Phosphorus Level 5.4 MG/DL (2.5-4.9) H Magnesium Level 1.9 MG/DL (1.8-2.4) Total Bilirubin 0.3 MG/DL (0.2-1.0) Aspartate Amino Transf (AST/SGOT) 13 U/L (15-37) L Alanine Aminotransferase (ALT/SGPT) 10 U/L (12-78) L Alkaline Phosphatase 111 U/L (46-116) C-Reactive Protein, Quantitative 1.5 mg/dL (0.00-0.90) H Total Protein 6.3 G/DL (6.4-8.2) L Albumin 2.7 G/DL (3.4-5.0) L Globulin 3.6 g/dL Albumin/Globulin Ratio 0.8 (1.0-2.7) L Vitamin B12 Level 6312 PG/ML (193-986) H Folate 43.2 NG/ML (3.1-17.5) H Current Medications Medications (Trade) Dose Ordered Sig/Toya Route PRN Reason Start Time Stop Time Status Last Admin Dose Admin Acetaminophen (Tylenol) 650 mg Q4H PRN ORAL Mild Pain/Temp > 100.5 05/15/17 01:54 06/11/17 01:53 05/16/17 02:07 Acetaminophen/ Hydrocodone Bitart ([place] 5/325) 1 tab Q4H PRN ORAL Mild Breakthrough Pain 05/15/17 01:57 05/20/17 01:56 Allopurinol (Allopurinol) 300 mg DAILY ORAL 05/15/17 09:00 06/13/17 13:59 05/16/17 09:03 Atorvastatin Calcium (Lipitor) 40 mg BEDTIME ORAL 05/16/17 21:00 06/15/17 20:59 Clonidine HCl (Catapres) 0.1 mg Q4H PRN ORAL bp over syst 160 05/15/17 05:00 06/11/17 04:59 Epoetin Panchito (Procrit (for non ESRD use)) 10,000 units THU-THU-THU SUBQ 05/15/17 21:00 06/12/17 20:59 05/15/17 21:00 Folic Acid (Folate) 1 mg DAILY ORAL 05/17/17 09:00 06/16/17 08:59 Gabapentin (Neurontin) 300 mg BEDTIME ORAL 05/15/17 21:00 06/11/17 20:59 05/15/17 21:00 Hydralazine HCl (Apresoline) 100 mg Q8HR ORAL 05/15/17 14:00 06/14/17 13:59 05/16/17 13:17 Iron Sucrose 100 mg/Sodium Chloride 60 ml @ 240 mls/hr BEDTIME IV 05/15/17 21:00 05/16/17 21:01 05/15/17 21:00 Isosorbide Mononitrate (Imdur) 90 mg DAILY ORAL 05/15/17 09:00 06/12/17 20:59 05/16/17 09:03 Lansoprazole (Prevacid) 30 mg DAILY ORAL 05/15/17 09:00 06/11/17 15:59 05/16/17 09:03 Levothyroxine Sodium (Synthroid) 25 mcg DAILY@0630 ORAL 05/15/17 06:30 06/12/17 06:29 05/16/17 06:41 Levothyroxine Sodium (Synthroid) 112 mcg DAILY@0630 ORAL 05/15/17 06:30 06/12/17 06:29 05/16/17 06:39 Metolazone (Zaroxolyn) 10 mg BID ORAL 05/15/17 18:00 06/12/17 08:29 05/16/17 09:01 Metoprolol Tartrate (Lopressor) 50 mg Q12HR ORAL 05/15/17 21:00 06/14/17 20:59 05/16/17 09:03 Nifedipine (Procardia XL) 60 mg Q12HR ORAL 05/15/17 09:00 06/13/17 20:59 05/16/17 09:02 Anel Porras M.D. May 16, 2017 14:58
[2017-05-16 15:32] VITALS: BP 145/57
--- NOTE | 2017-05-16 18:28 | Pulmonology Progress Note ---
Assessment/Plan Assessment/Plan 1. Pulmonary edema and pleural effusions. 2. Respiratory failure. 3. Renal failure. 4. Hypertension with hypertensive heart disease. 5. Diabetes. 6. Hyperlipidemia. 7. Hypothyroidism. breathing well off bipap prn only permacath Thursday HD per renal disc w RN pulm stable CXR thursday if needed Subjective Constitutional: Reports: no symptoms HEENT: Repors: no symptoms Respiratory: Reports: no symptoms Cardiovascular: Reports: no symptoms Genitourinary: Reports: no symptoms Allergies: Coded Allergies: No Known Allergies (Unverified , 05/12/17) Subjective no cp nv or bleeding toleratign po no fever oob to br off o2 Objective Last 24 Hour Vital Signs Date Time Temp Pulse Resp B/P (MAP) Pulse Ox O2 Delivery O2 Flow Rate FiO2 05/16/17 15:32 97.9 69 18 145/57 98 Room Air 05/16/17 13:17 144/61 05/16/17 11:56 67 05/16/17 11:54 97.1 68 18 144/61 95 Room Air 05/16/17 09:03 70 146/57 05/16/17 09:03 146/57 05/16/17 09:02 70 146/57 05/16/17 08:20 98.2 70 18 146/57 93 Room Air 05/16/17 08:06 69 05/16/17 06:29 136/59 05/16/17 04:17 76 05/16/17 04:00 98.4 74 20 133/58 95 Room Air 2.0 28 05/16/17 00:00 98.4 76 18 164/69 95 Room Air 2.0 28 05/15/17 23:07 77 05/15/17 22:00 161/62 05/15/17 21:39 Room Air 05/15/17 21:38 95 Room Air 05/15/17 21:00 139/54 05/15/17 21:00 64 161/65 05/15/17 20:00 77 05/15/17 20:00 97.7 72 18 163/61 95 Room Air 2.0 28 Intake and Output 05/16/17 05/17/17 19:00 07:00 Intake Total 340 ml Balance 340 ml Intake Oral 340 ml # Voids 3 General Appearance: WD/WN HEENT: atraumatic, mucous membranes moist Respiratory/Chest: lungs clear, no respiratory distress Cardiovascular: normal peripheral pulses Abdomen: soft, non tender, no organomegaly, non distended Extremities: no cyanosis Skin: no ulcers Neurologic/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: 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 grossly normal, no motor/sensory deficits, abnormal gait, alert, oriented x 3 Lymphatic: no neck adenopathy Musculoskeletal: normal muscle bulk Laboratory Tests 05/16/17 05:10: White Blood Count 4.5L, Red Blood Count 2.79L, Hemoglobin 8.4L, Hematocrit 26.1L , Mean Corpuscular Volume 93, Mean Corpuscular Hemoglobin 30.3, Mean Corpuscular Hemoglobin Concent 32.4, Red Cell Distribution Width 13.1, Platelet Count 193, Mean Platelet Volume 7.1, Neutrophils (%) (Auto) 71.6, Lymphocytes (% ) (Auto) 13.2L, Monocytes (%) (Auto) 9.3, Eosinophils (%) (Auto) 4.6H, Basophils (%) (Auto) 1.2, Sodium Level 133L, Potassium Level 4.1, Chloride Level 100, Carbon Dioxide Level 26, Anion Gap 7, Blood Urea Nitrogen 79H, Creatinine 4.7H, Estimat Glomerular Filtration Rate 9.3, Glucose Level 309H, Uric Acid 8.0H, Calcium Level 8.4L, Phosphorus Level 5.4H, Magnesium Level 1.9, Total Bilirubin 0.3, Aspartate Amino Transf (AST/SGOT) 13L, Alanine Aminotransferase (ALT/SGPT) 10L, Alkaline Phosphatase 111, C-Reactive Protein, Quantitative 1.5H, Total Protein 6.3L, Albumin 2.7L, Globulin 3.6, Albumin/ Globulin Ratio 0.8L, Vitamin B12 Level 6312H, Folate 43.2H Current Medications Medications (Trade) Dose Ordered Sig/Toya Route PRN Reason Start Time Stop Time Status Last Admin Dose Admin Acetaminophen (Tylenol) 650 mg Q4H PRN ORAL Mild Pain/Temp > 100.5 05/15/17 01:54 06/11/17 01:53 05/16/17 02:07 Acetaminophen/ Hydrocodone Bitart ([place] 5/325) 1 tab Q4H PRN ORAL Mild Breakthrough Pain 05/15/17 01:57 05/20/17 01:56 Allopurinol (Allopurinol) 300 mg DAILY ORAL 05/15/17 09:00 06/13/17 13:59 05/16/17 09:03 Atorvastatin Calcium (Lipitor) 40 mg BEDTIME ORAL 05/16/17 21:00 06/15/17 20:59 Clonidine HCl (Catapres) 0.1 mg Q4H PRN ORAL bp over syst 160 05/15/17 05:00 06/11/17 04:59 Epoetin Panchito (Procrit (for non ESRD use)) 10,000 units THU-THU-THU SUBQ 05/15/17 21:00 06/12/17 20:59 05/15/17 21:00 Folic Acid (Folate) 1 mg DAILY ORAL 05/17/17 09:00 06/16/17 08:59 Gabapentin (Neurontin) 300 mg BEDTIME ORAL 05/15/17 21:00 06/11/17 20:59 05/15/17 21:00 Hydralazine HCl (Apresoline) 100 mg Q8HR ORAL 05/15/17 14:00 06/14/17 13:59 05/16/17 13:17 Iron Sucrose 100 mg/Sodium Chloride 60 ml @ 240 mls/hr BEDTIME IV 05/15/17 21:00 05/16/17 21:01 05/15/17 21:00 Isosorbide Mononitrate (Imdur) 90 mg DAILY ORAL 05/15/17 09:00 06/12/17 20:59 05/16/17 09:03 Lansoprazole (Prevacid) 30 mg DAILY ORAL 05/15/17 09:00 06/11/17 15:59 05/16/17 09:03 Levothyroxine Sodium (Synthroid) 25 mcg DAILY@0630 ORAL 05/15/17 06:30 06/12/17 06:29 05/16/17 06:41 Levothyroxine Sodium (Synthroid) 112 mcg DAILY@0630 ORAL 05/15/17 06:30 06/12/17 06:29 05/16/17 06:39 Metolazone (Zaroxolyn) 10 mg BID ORAL 05/15/17 18:00 06/12/17 08:29 05/16/17 17:27 Metoprolol Tartrate (Lopressor) 50 mg Q12HR ORAL 05/15/17 21:00 06/14/17 20:59 05/16/17 09:03 Nifedipine (Procardia XL) 60 mg Q12HR ORAL 05/15/17 09:00 06/13/17 20:59 05/16/17 09:02 ANASTASIYA MACKEY DO May 16, 2017 18:28
[2017-05-16] MEDS ORDERED: Tubing IV Secondary IV ONE (18:45)
--- NOTE | 2017-05-16 19:17 | Cardiology Progress Note ---
Assessment/Plan Assessment/Plan 1. Dyspnea likely due to hypervolemia associated with CKD, echocardiography reveals normal LV systolic function with diastolic data consistent with normal intra-cardiac filling pressure, although there is element of abnormal LV relaxation due to hypertension, awaiting HD, in the meantime continue metolazone and after load reducers. 2. HTN emergency with end-organ damage, optimize clonidine, beta-blockers, calcium- channel blockers, and metolazone. 3. Small pericardial effusion, scheduled for hemodialysis. 4. ESRD Subjective Subjective Sinus rhythm at 67. Denies CP or SOB. Objective Last 24 Hour Vital Signs Date Time Temp Pulse Resp B/P (MAP) Pulse Ox O2 Delivery O2 Flow Rate FiO2 05/16/17 15:50 69 05/16/17 15:32 97.9 69 18 145/57 98 Room Air 05/16/17 13:17 144/61 05/16/17 11:56 67 05/16/17 11:54 97.1 68 18 144/61 95 Room Air 05/16/17 09:03 70 146/57 05/16/17 09:03 146/57 05/16/17 09:02 70 146/57 05/16/17 08:20 98.2 70 18 146/57 93 Room Air 05/16/17 08:06 69 05/16/17 06:29 136/59 05/16/17 04:17 76 05/16/17 04:00 98.4 74 20 133/58 95 Room Air 2.0 28 05/16/17 00:00 98.4 76 18 164/69 95 Room Air 2.0 28 05/15/17 23:07 77 05/15/17 22:00 161/62 05/15/17 21:39 Room Air 05/15/17 21:38 95 Room Air 05/15/17 21:00 139/54 05/15/17 21:00 64 161/65 05/15/17 20:00 77 05/15/17 20:00 97.7 72 18 163/61 95 Room Air 2.0 28 Intake and Output 05/16/17 05/17/17 19:00 07:00 Intake Total 340 ml Balance 340 ml Intake Oral 340 ml # Voids 3 2D Echo: LVEF 55%, small pericardial effusion, grade I LVDD, RVSP 32 mmHg Laboratory Tests Test 05/16/17 05:10 White Blood Count 4.5 K/UL (4.8-10.8) L Red Blood Count 2.79 M/UL (4.20-5.40) L Hemoglobin 8.4 G/DL (12.0-16.0) L Hematocrit 26.1 % (37.0-47.0) L Mean Corpuscular Volume 93 FL (80-99) Mean Corpuscular Hemoglobin 30.3 PG (27.0-31.0) Mean Corpuscular Hemoglobin Concent 32.4 G/DL (32.0-36.0) Red Cell Distribution Width 13.1 % (11.6-14.8) Platelet Count 193 K/UL (150-450) Mean Platelet Volume 7.1 FL (6.5-10.1) Neutrophils (%) (Auto) 71.6 % (45.0-75.0) Lymphocytes (%) (Auto) 13.2 % (20.0-45.0) L Monocytes (%) (Auto) 9.3 % (1.0-10.0) Eosinophils (%) (Auto) 4.6 % (0.0-3.0) H Basophils (%) (Auto) 1.2 % (0.0-2.0) Sodium Level 133 MMOL/L (136-145) L Potassium Level 4.1 MMOL/L (3.5-5.1) Chloride Level 100 MMOL/L (98-107) Carbon Dioxide Level 26 MMOL/L (21-32) Anion Gap 7 (5-15) Blood Urea Nitrogen 79 mg/dL (7-18) H Creatinine 4.7 MG/DL (0.55-1.30) H Estimat Glomerular Filtration Rate 9.3 mL/min (>60) Glucose Level 309 MG/DL (74-106) H Uric Acid 8.0 MG/DL (2.6-7.2) H Calcium Level 8.4 MG/DL (8.5-10.1) L Phosphorus Level 5.4 MG/DL (2.5-4.9) H Magnesium Level 1.9 MG/DL (1.8-2.4) Total Bilirubin 0.3 MG/DL (0.2-1.0) Aspartate Amino Transf (AST/SGOT) 13 U/L (15-37) L Alanine Aminotransferase (ALT/SGPT) 10 U/L (12-78) L Alkaline Phosphatase 111 U/L (46-116) C-Reactive Protein, Quantitative 1.5 mg/dL (0.00-0.90) H Total Protein 6.3 G/DL (6.4-8.2) L Albumin 2.7 G/DL (3.4-5.0) L Globulin 3.6 g/dL Albumin/Globulin Ratio 0.8 (1.0-2.7) L Vitamin B12 Level 6312 PG/ML (193-986) H Folate 43.2 NG/ML (3.1-17.5) H Objective HEENT: Atraumatic and normocephalic. Pupils are equal, round, and reactive to light and accommodation. Extraocular muscles are intact. NECK: JVP is elevated about 10 to 15 cm. No carotid bruit. Carotid upstrokes 2+ bilaterally. CARDIOVASCULAR: Normal S1, S2. Regular rate and rhythm. There is a 2/6 mid systolic murmur at the left sternal border. There is no pericardial rub. PMI is at 4th intercostal space in the midclavicular line. LUNGS: Bibasilar crackles. ABDOMEN: Soft, nontender, and nondistended. No hepatosplenomegaly. Positive bowel sounds. EXTREMITIES: There is 1+ pitting edema bilaterally. NATI VOGEL May 16, 2017 19:17
[2017-05-16 20:00] VITALS: BP 144/50
--- NOTE | 2017-05-16 21:10 | General Progress Note ---
Assessment/Plan Assessment/Plan # Anemia of iron deficiency - low ferritin, begin on iv iron, as per renal team --> continue to watch counts, HH slowly improving # Anemia of kidney disease - on venofer as well as epogen, agree will improve and mobilize iron stores # Anemia of b12 deficiency - b12 im sq doses # Acute respiratory failure- likely CHF # Renal failure, acute on Chronic # Diabetic Nephropathy # HTN Subjective ROS Limited/Unobtainable: Yes Allergies: Coded Allergies: No Known Allergies (Unverified , 05/12/17) Subjective NAD Objective Last 24 Hour Vital Signs Date Time Temp Pulse Resp B/P (MAP) Pulse Ox O2 Delivery O2 Flow Rate FiO2 05/16/17 20:04 93 Room Air 05/16/17 20:04 Room Air 05/16/17 20:00 98.2 75 20 144/50 95 Room Air 2.0 28 05/16/17 15:50 69 05/16/17 15:32 97.9 69 18 145/57 98 Room Air 05/16/17 13:17 144/61 05/16/17 11:56 67 05/16/17 11:54 97.1 68 18 144/61 95 Room Air 05/16/17 09:03 70 146/57 05/16/17 09:03 146/57 05/16/17 09:02 70 146/57 05/16/17 08:20 98.2 70 18 146/57 93 Room Air 05/16/17 08:06 69 05/16/17 06:29 136/59 05/16/17 04:17 76 05/16/17 04:00 98.4 74 20 133/58 95 Room Air 2.0 28 05/16/17 00:00 98.4 76 18 164/69 95 Room Air 2.0 28 05/15/17 23:07 77 05/15/17 22:00 161/62 05/15/17 21:39 Room Air 05/15/17 21:38 95 Room Air Intake and Output 05/16/17 05/17/17 19:00 07:00 Intake Total 340 ml Balance 340 ml Intake Oral 340 ml # Voids 3 Laboratory Tests 05/16/17 05:10: White Blood Count 4.5L, Red Blood Count 2.79L, Hemoglobin 8.4L, Hematocrit 26.1L , Mean Corpuscular Volume 93, Mean Corpuscular Hemoglobin 30.3, Mean Corpuscular Hemoglobin Concent 32.4, Red Cell Distribution Width 13.1, Platelet Count 193, Mean Platelet Volume 7.1, Neutrophils (%) (Auto) 71.6, Lymphocytes (% ) (Auto) 13.2L, Monocytes (%) (Auto) 9.3, Eosinophils (%) (Auto) 4.6H, Basophils (%) (Auto) 1.2, Sodium Level 133L, Potassium Level 4.1, Chloride Level 100, Carbon Dioxide Level 26, Anion Gap 7, Blood Urea Nitrogen 79H, Creatinine 4.7H, Estimat Glomerular Filtration Rate 9.3, Glucose Level 309H, Uric Acid 8.0H, Calcium Level 8.4L, Phosphorus Level 5.4H, Magnesium Level 1.9, Total Bilirubin 0.3, Aspartate Amino Transf (AST/SGOT) 13L, Alanine Aminotransferase (ALT/SGPT) 10L, Alkaline Phosphatase 111, C-Reactive Protein, Quantitative 1.5H, Total Protein 6.3L, Albumin 2.7L, Globulin 3.6, Albumin/ Globulin Ratio 0.8L, Vitamin B12 Level 6312H, Folate 43.2H Height (Feet): 5 Height (Inches): 0.00 Weight (Pounds): 160 General Appearance: no apparent distress EENT: normal ENT inspection Neck: normal inspection Cardiovascular: no gallop/murmur Respiratory/Chest: no accessory muscle use Abdomen: no organomegaly, no mass Neurologic: prosthetic assistant II-XII grossly normal Skin: warm/dry Carl Daniels May 16, 2017 21:10
[2017-05-16] MEDS: Iron Sucrose 100 MG in NS 55 ML IV SCH (21:15)
[2017-05-16] MEDS: Gabapentin 300 MG/6 ML Soln ORAL SCH (21:15)
[2017-05-17] VITALS (7 sets, daily range): BP systolic 143–160; BP diastolic 54–63
[2017-05-17] MEDS: HydrALAZINE 50mg tab ORAL SCH ×3 (06:01→21:46)
[2017-05-17] MEDS: Levothyroxine 25mcg tab ORAL SCH (06:01)
--- NOTE | 2017-05-17 06:43 | Pulmonology Progress Note ---
Assessment/Plan Assessment/Plan 1. Pulmonary edema and pleural effusions. 2. Respiratory failure. 3. Renal failure. 4. Hypertension with hypertensive heart disease. 5. Diabetes. 6. Hyperlipidemia. 7. Hypothyroidism. breathing well bipap prn only permacath Thursday HD per renal disc w RN pulm stable CXR thursday if needed Subjective Constitutional: Reports: no symptoms HEENT: Repors: no symptoms Respiratory: Reports: no symptoms Cardiovascular: Reports: no symptoms Gastrointestinal/Abdominal: Reports: no symptoms Genitourinary: Reports: no symptoms Allergies: Coded Allergies: No Known Allergies (Unverified , 05/12/17) Subjective sleeping this am no events over night no cp nv or bleeding tolerating po no fever oob to br off o2 Objective Last 24 Hour Vital Signs Date Time Temp Pulse Resp B/P (MAP) Pulse Ox O2 Delivery O2 Flow Rate FiO2 05/17/17 06:01 145/60 05/17/17 04:00 97.0 74 18 146/59 95 Room Air 2.0 28 05/17/17 04:00 74 05/17/17 00:10 156/55 05/17/17 00:00 74 05/17/17 00:00 98.0 71 18 160/59 95 Room Air 2.0 28 05/16/17 22:10 147/65 05/16/17 21:17 78 144/65 05/16/17 21:16 78 144/65 05/16/17 20:04 93 Room Air 05/16/17 20:04 Room Air 05/16/17 20:00 98.2 75 20 144/50 95 Room Air 2.0 28 05/16/17 20:00 72 05/16/17 15:50 69 05/16/17 15:32 97.9 69 18 145/57 98 Room Air 05/16/17 13:17 144/61 05/16/17 11:56 67 05/16/17 11:54 97.1 68 18 144/61 95 Room Air 05/16/17 09:03 70 146/57 05/16/17 09:03 146/57 05/16/17 09:02 70 146/57 05/16/17 08:20 98.2 70 18 146/57 93 Room Air 05/16/17 08:06 69 General Appearance: WD/WN Respiratory/Chest: lungs clear Cardiovascular: normal rate, regular rhythm Abdomen: soft, non tender, no organomegaly Extremities: no cyanosis Skin: no lesions Neurologic/Psychiatric: alert, responsive Current Medications Medications (Trade) Dose Ordered Sig/Toya Route PRN Reason Start Time Stop Time Status Last Admin Dose Admin Acetaminophen (Tylenol) 650 mg Q4H PRN ORAL Mild Pain/Temp > 100.5 05/15/17 01:54 06/11/17 01:53 05/16/17 02:07 Acetaminophen/ Hydrocodone Bitart ([place] 5/325) 1 tab Q4H PRN ORAL Mild Breakthrough Pain 05/15/17 01:57 05/20/17 01:56 Allopurinol (Allopurinol) 300 mg DAILY ORAL 05/15/17 09:00 06/13/17 13:59 05/16/17 09:03 Atorvastatin Calcium (Lipitor) 40 mg BEDTIME ORAL 05/16/17 21:00 06/15/17 20:59 05/16/17 21:16 Clonidine HCl (Catapres) 0.1 mg Q4H PRN ORAL bp over syst 160 05/15/17 05:00 06/11/17 04:59 Epoetin Panchito (Procrit (for non ESRD use)) 10,000 units MON-THU-THU SUBQ 05/15/17 21:00 06/12/17 20:59 05/15/17 21:00 Folic Acid (Folate) 1 mg DAILY ORAL 05/17/17 09:00 06/16/17 08:59 Gabapentin (Neurontin) 300 mg BEDTIME ORAL 05/15/17 21:00 06/11/17 20:59 05/16/17 21:15 Hydralazine HCl (Apresoline) 100 mg Q8HR ORAL 05/15/17 14:00 06/14/17 13:59 05/17/17 06:01 Isosorbide Mononitrate (Imdur) 90 mg DAILY ORAL 05/15/17 09:00 06/12/17 20:59 05/16/17 09:03 Lansoprazole (Prevacid) 30 mg DAILY ORAL 05/15/17 09:00 06/11/17 15:59 05/16/17 09:03 Levothyroxine Sodium (Synthroid) 25 mcg DAILY@0630 ORAL 05/15/17 06:30 06/12/17 06:29 05/17/17 06:01 Levothyroxine Sodium (Synthroid) 112 mcg DAILY@0630 ORAL 05/15/17 06:30 06/12/17 06:29 05/17/17 06:01 Metolazone (Zaroxolyn) 10 mg BID ORAL 05/15/17 18:00 06/12/17 08:29 05/16/17 17:27 Metoprolol Tartrate (Lopressor) 50 mg Q12HR ORAL 05/15/17 21:00 06/14/17 20:59 05/16/17 21:16 Nifedipine (Procardia XL) 60 mg Q12HR ORAL 05/15/17 09:00 06/13/17 20:59 05/16/17 21:17 ANASTASIYA MACKEY DO May 17, 2017 06:43
[2017-05-17 09:08] LABS: BASOPHILS % (AUTO) 1.6 % (0.0-2.0); EOSINOPHILS % (AUTO) 4.7 % (0.0-3.0); LYMPHOCYTES % (AUTO) 11.7 % (20.0-45.0); MEAN CORPUSCULAR VOLUME 94 FL (80-99); MEAN PLATELET VOLUME 6.9 FL (6.5-10.1); MONOCYTES % (AUTO) 8.3 % (1.0-10.0); NEUTROPHILS % (AUTO) 73.7 % (45.0-75.0); PLATELET COUNT 231 K/UL (150-450); RED BLOOD COUNT 3.03 M/UL (4.20-5.40); RED CELL DISTRIBUTION WIDTH 13.2 % (11.6-14.8); WHITE BLOOD COUNT 5.3 K/UL (4.8-10.8)
[2017-05-17] MEDS: Metoprolol Tartrate 50mg tab ORAL SCH ×2 (09:28→21:45)
[2017-05-17 09:40] LABS: ALANINE AMINOTRANSFERASE 13 U/L (12-78); ALBUMIN/GLOBULIN RATIO 0.8 (1.0-2.7); ASPARTATE AMINO TRANSFERASE 21 U/L (15-37); CALCIUM 8.8 MG/DL (8.5-10.1); CHLORIDE 101 MMOL/L (98-107); CREATININE 4.6 MG/DL (0.55-1.30); CRP QUANT 1.1 mg/dL (0.00-0.90); GLOMERULAR FILTRATION RATE 9.5 mL/min (>60); PHOSPHORUS 4.9 MG/DL (2.5-4.9); POTASSIUM 4.3 MMOL/L (3.5-5.1); SODIUM 137 MMOL/L (136-145); URIC ACID 7.2 MG/DL (2.6-7.2)
[2017-05-17] MEDS: Imdur 30mg tab ORAL SCH (09:41)
[2017-05-17] MEDS: Norco 5mg/325mg tab ORAL PRN (09:42)
[2017-05-17 10:05] LABS: CARBON DIOXIDE 23 MMOL/L (21-32)
--- NOTE | 2017-05-17 10:36 | General Progress Note ---
Assessment/Plan Problem List: (1) Renal failure ICD Codes: N19 - Unspecified kidney failure SNOMED: 46710622 (2) Pneumonia ICD Codes: J18.9 - Pneumonia, unspecified organism SNOMED: 304308119 (3) Respiratory failure with hypoxia ICD Codes: J96.91 - Respiratory failure, unspecified with hypoxia SNOMED: 54733212614333853 (4) UTI (urinary tract infection) ICD Codes: N39.0 - Urinary tract infection, site not specified SNOMED: 68510154 (5) Anemia ICD Codes: D64.9 - Anemia, unspecified SNOMED: 693215698 (6) Acute exacerbation of CHF (congestive heart failure) ICD Codes: I50.9 - Heart failure, unspecified SNOMED: 59771455 Status: stable, progressing, tolerating diet Assessment/Plan o2 pulm tx ot pt diet abx cbc bmp am Subjective Constitutional: Reports: weakness Allergies: Coded Allergies: No Known Allergies (Unverified , 05/12/17) All Systems: reviewed and negative except above Subjective sleepy calm Objective Last 24 Hour Vital Signs Date Time Temp Pulse Resp B/P (MAP) Pulse Ox O2 Delivery O2 Flow Rate FiO2 05/17/17 09:41 149/54 05/17/17 09:30 76 149/54 05/17/17 09:28 76 149/54 05/17/17 06:01 145/60 05/17/17 04:00 97.0 74 18 146/59 95 Room Air 2.0 28 05/17/17 04:00 74 05/17/17 00:10 156/55 05/17/17 00:00 74 05/17/17 00:00 98.0 71 18 160/59 95 Room Air 2.0 28 05/16/17 22:10 147/65 05/16/17 21:17 78 144/65 05/16/17 21:16 78 144/65 05/16/17 20:04 93 Room Air 05/16/17 20:04 Room Air 05/16/17 20:00 98.2 75 20 144/50 95 Room Air 2.0 28 05/16/17 20:00 72 05/16/17 15:50 69 05/16/17 15:32 97.9 69 18 145/57 98 Room Air 05/16/17 13:17 144/61 05/16/17 11:56 67 05/16/17 11:54 97.1 68 18 144/61 95 Room Air Laboratory Tests 05/17/17 08:07: White Blood Count 5.3, Red Blood Count 3.03L, Hemoglobin 9.1L, Hematocrit 28.4L , Mean Corpuscular Volume 94, Mean Corpuscular Hemoglobin 30.0, Mean Corpuscular Hemoglobin Concent 32.0, Red Cell Distribution Width 13.2, Platelet Count 231, Mean Platelet Volume 6.9, Neutrophils (%) (Auto) 73.7, Lymphocytes (% ) (Auto) 11.7L, Monocytes (%) (Auto) 8.3, Eosinophils (%) (Auto) 4.7H, Basophils (%) (Auto) 1.6, Sodium Level 137, Potassium Level 4.3, Chloride Level 101, Carbon Dioxide Level 23, Blood Urea Nitrogen 80H, Creatinine 4.6H, Estimat Glomerular Filtration Rate 9.5, Glucose Level 325H, Uric Acid 7.2, Calcium Level 8.8, Phosphorus Level 4.9, Magnesium Level 2.0, Total Bilirubin 0.4, Aspartate Amino Transf (AST/SGOT) 21, Alanine Aminotransferase (ALT/SGPT) 13, Alkaline Phosphatase 122H, C-Reactive Protein, Quantitative 1.1H, Pro-B-Type Natriuretic Peptide 69282H, Total Protein 7.0, Albumin 3.0L, Globulin 4.0, Albumin/Globulin Ratio 0.8L Height (Feet): 5 Height (Inches): 0.00 Weight (Pounds): 170 General Appearance: lethargic EENT: normal ENT inspection Neck: normal alignment Cardiovascular: normal peripheral pulses, normal rate, regular rhythm Respiratory/Chest: chest wall non-tender, lungs clear, normal breath sounds Abdomen: normal bowel sounds, non tender, soft Extremities: normal inspection Edema: no edema noted Arm (L), no edema noted Arm (R), no edema noted Leg (L), no edema noted Leg (R), no edema noted Pedal (L), no edema noted Pedal (R), no edema noted Generalized Neurologic: motor weakness Skin: normal pigmentation, warm/dry LATIA SMITH May 17, 2017 10:36
--- NOTE | 2017-05-17 11:03 | General Progress Note ---
Assessment/Plan Status: unchanged Status Narrative Cr 4.7 Assessment/Plan status; Acute respiratory failure- likely CHF Renal failure, acute on Chronic Diabetic Nephropathy HTN Anemia: low B12- and low Iron Plan: increase zaroxylin initiate dialysis and UF- catheter ordered 05/15 was not yet placed !!!! to monitor bed- adjust BP meds- B12 SQ po Folate IV Iron Optimize cardiac and respiratory status DC heredia keep BP and BS in check monitor renal parameters and Anemia yang 24 h urine in process CrCl 15 transfuse as needed Subjective ROS Limited/Unobtainable: No Allergies: Coded Allergies: No Known Allergies (Unverified , 05/12/17) Objective Last 24 Hour Vital Signs Date Time Temp Pulse Resp B/P (MAP) Pulse Ox O2 Delivery O2 Flow Rate FiO2 05/17/17 09:41 149/54 05/17/17 09:30 76 149/54 05/17/17 09:28 76 149/54 05/17/17 08:00 97.9 76 18 149/54 92 Room Air 05/17/17 07:20 Room Air 05/17/17 07:20 96 Room Air 05/17/17 07:20 76 17 Room Air 05/17/17 06:01 145/60 05/17/17 04:00 97.0 74 18 146/59 95 Room Air 2.0 28 05/17/17 04:00 74 05/17/17 00:10 156/55 05/17/17 00:00 74 05/17/17 00:00 98.0 71 18 160/59 95 Room Air 2.0 28 05/16/17 22:10 147/65 05/16/17 21:17 78 144/65 05/16/17 21:16 78 144/65 05/16/17 20:04 93 Room Air 05/16/17 20:04 Room Air 05/16/17 20:00 98.2 75 20 144/50 95 Room Air 2.0 28 05/16/17 20:00 72 05/16/17 15:50 69 05/16/17 15:32 97.9 69 18 145/57 98 Room Air 05/16/17 13:17 144/61 05/16/17 11:56 67 05/16/17 11:54 97.1 68 18 144/61 95 Room Air Intake and Output 05/17/17 05/18/17 19:00 07:00 Intake Total 240 ml Balance 240 ml Intake Oral 240 ml # Voids 1 Laboratory Tests 05/17/17 08:07: White Blood Count 5.3, Red Blood Count 3.03L, Hemoglobin 9.1L, Hematocrit 28.4L , Mean Corpuscular Volume 94, Mean Corpuscular Hemoglobin 30.0, Mean Corpuscular Hemoglobin Concent 32.0, Red Cell Distribution Width 13.2, Platelet Count 231, Mean Platelet Volume 6.9, Neutrophils (%) (Auto) 73.7, Lymphocytes (% ) (Auto) 11.7L, Monocytes (%) (Auto) 8.3, Eosinophils (%) (Auto) 4.7H, Basophils (%) (Auto) 1.6, Sodium Level 137, Potassium Level 4.3, Chloride Level 101, Carbon Dioxide Level 23, Blood Urea Nitrogen 80H, Creatinine 4.6H, Estimat Glomerular Filtration Rate 9.5, Glucose Level 325H, Uric Acid 7.2, Calcium Level 8.8, Phosphorus Level 4.9, Magnesium Level 2.0, Total Bilirubin 0.4, Aspartate Amino Transf (AST/SGOT) 21, Alanine Aminotransferase (ALT/SGPT) 13, Alkaline Phosphatase 122H, C-Reactive Protein, Quantitative 1.1H, Pro-B-Type Natriuretic Peptide 84946D, Total Protein 7.0, Albumin 3.0L, Globulin 4.0, Albumin/Globulin Ratio 0.8L Height (Feet): 5 Height (Inches): 0.00 Weight (Pounds): 170 General Appearance: no apparent distress Objective no other changes VOLODYMYR DOUGLAS May 17, 2017 11:03
--- NOTE | 2017-05-17 13:11 | General Progress Note ---
Assessment/Plan Assessment/Plan (1) Cervicalgia, Cervical Spondylosis (2) Muscle spasm (3) Pneumonia (4) Pleural Effusion (5) Congestive heart failure Pt to be continued on [place] as needed. D/w Dr. De and he concurred. Subjective Date patient seen: May 17, 2017 Time patient seen: 12:00 - pm Constitutional: Reports: no symptoms HEENT: Reports: no symptoms Cardiovascular: Reports: no symptoms Respiratory: Reports: no symptoms Gastrointestinal/Abdominal: Reports: no symptoms Genitourinary: Reports: no symptoms Neurologic/Psychiatric: Reports: no symptoms Endocrine: Reports: no symptoms Hematologic/Lymphatic: Reports: no symptoms Allergies: Coded Allergies: No Known Allergies (Unverified , 05/12/17) Subjective Patient is [place] speaking and is being interpreted. Her pain has been tolerated on the [place] and the Xray was reviewed with the patient. Objective Last 24 Hour Vital Signs Date Time Temp Pulse Resp B/P (MAP) Pulse Ox O2 Delivery O2 Flow Rate FiO2 05/17/17 12:00 97.5 73 18 143/60 93 Room Air 05/17/17 09:41 149/54 05/17/17 09:30 76 149/54 05/17/17 09:28 76 149/54 05/17/17 08:00 97.9 76 18 149/54 92 Room Air 05/17/17 07:20 Room Air 05/17/17 07:20 96 Room Air 05/17/17 07:20 76 17 Room Air 05/17/17 06:01 145/60 05/17/17 04:00 97.0 74 18 146/59 95 Room Air 2.0 28 05/17/17 04:00 74 05/17/17 00:10 156/55 05/17/17 00:00 74 05/17/17 00:00 98.0 71 18 160/59 95 Room Air 2.0 28 05/16/17 22:10 147/65 05/16/17 21:17 78 144/65 05/16/17 21:16 78 144/65 05/16/17 20:04 93 Room Air 05/16/17 20:04 Room Air 05/16/17 20:00 98.2 75 20 144/50 95 Room Air 2.0 28 05/16/17 20:00 72 05/16/17 15:50 69 05/16/17 15:32 97.9 69 18 145/57 98 Room Air 05/16/17 13:17 144/61 Intake and Output 05/17/17 05/18/17 19:00 07:00 Intake Total 240 ml Balance 240 ml Intake Oral 240 ml # Voids 1 Laboratory Tests 05/17/17 08:07: White Blood Count 5.3, Red Blood Count 3.03L, Hemoglobin 9.1L, Hematocrit 28.4L , Mean Corpuscular Volume 94, Mean Corpuscular Hemoglobin 30.0, Mean Corpuscular Hemoglobin Concent 32.0, Red Cell Distribution Width 13.2, Platelet Count 231, Mean Platelet Volume 6.9, Neutrophils (%) (Auto) 73.7, Lymphocytes (% ) (Auto) 11.7L, Monocytes (%) (Auto) 8.3, Eosinophils (%) (Auto) 4.7H, Basophils (%) (Auto) 1.6, Sodium Level 137, Potassium Level 4.3, Chloride Level 101, Carbon Dioxide Level 23, Blood Urea Nitrogen 80H, Creatinine 4.6H, Estimat Glomerular Filtration Rate 9.5, Glucose Level 325H, Uric Acid 7.2, Calcium Level 8.8, Phosphorus Level 4.9, Magnesium Level 2.0, Total Bilirubin 0.4, Aspartate Amino Transf (AST/SGOT) 21, Alanine Aminotransferase (ALT/SGPT) 13, Alkaline Phosphatase 122H, C-Reactive Protein, Quantitative 1.1H, Pro-B-Type Natriuretic Peptide 79830X, Total Protein 7.0, Albumin 3.0L, Globulin 4.0, Albumin/Globulin Ratio 0.8L Height (Feet): 5 Height (Inches): 0.00 Weight (Pounds): 170 General Appearance: no apparent distress, alert EENT: PERRL/EOMI, normal ENT inspection Neck: supple, muscle spasm, pain on motion Cardiovascular: regular rhythm, regularly irregular Respiratory/Chest: lungs clear, normal breath sounds Abdomen: non tender, soft Extremities: non-tender Edema: trace edema Neurologic: alert, responsive Skin: warm/dry Objective Procedure: XRAY C Spine Complete There is extensive osteophytosis involving the vertebral endplates at C4-5, C5-6 , C6-7, C7-T1. DICK RODRIGUEZ N. P.AKaela May 17, 2017 13:11
[2017-05-17] MEDS: NovoLOG Insulin Flexpen SUBQ SCH ×4 (14:08→22:32)
[2017-05-17] MEDS ORDERED: NovoLOG Insulin Flexpen SUBQ SCH ×2 (16:50→21:00)
[2017-05-17] MEDS: Docusate 100mg cap ORAL SCH (17:38)
--- NOTE | 2017-05-17 18:37 | Infectious Diseases Prog Note ---
Assessment/Plan Problems: (1) Acute exacerbation of CHF (congestive heart failure) Assessment & Plan: improving , didn't tolerate diuresis well with worsening renal function , may need HD , nephrology and cardiology are following (2) Respiratory failure with hypoxia Assessment & Plan: due to the above, improving, off BIBAP, now on room air , pulmonary is following , monitor CXR (3) Renal failure Assessment & Plan: unclear whether acute or chronic , avoid nephrotoxic meds , monitor UOP (4) UTI (urinary tract infection) Assessment & Plan: with culture grew contaminant only , monitor off antibiotics Subjective Constitutional: Reports: no symptoms HEENT: Reports: no symptoms Respiratory: Reports: no symptoms Breasts: Reports: no symptoms Cardiovascular: Reports: no symptoms Gastrointestinal/Abdominal: Reports: no symptoms Genitourinary: Reports: no symptoms Neurologic: Reports: no symptoms Psychiatric: Reports: no symptoms Skin: Reports: no symptoms Endocrine: Reports: no symptoms Hematologic: Reports: no symptoms Musculoskeletal: Reports: no symptoms Allergies: Coded Allergies: No Known Allergies (Unverified , 05/12/17) Objective Vital Signs Last 24 Hour Vital Signs Date Time Temp Pulse Resp B/P (MAP) Pulse Ox O2 Delivery O2 Flow Rate FiO2 05/17/17 16:26 97.9 72 18 147/63 94 Room Air 05/17/17 13:11 143/60 05/17/17 12:00 97.5 73 18 143/60 93 Room Air 05/17/17 09:41 149/54 05/17/17 09:30 76 149/54 05/17/17 09:28 76 149/54 05/17/17 08:00 97.9 76 18 149/54 92 Room Air 05/17/17 07:20 Room Air 05/17/17 07:20 96 Room Air 05/17/17 07:20 76 17 Room Air 05/17/17 06:01 145/60 05/17/17 04:00 97.0 74 18 146/59 95 Room Air 2.0 28 05/17/17 04:00 74 05/17/17 00:10 156/55 05/17/17 00:00 74 05/17/17 00:00 98.0 71 18 160/59 95 Room Air 2.0 28 05/16/17 22:10 147/65 05/16/17 21:17 78 144/65 05/16/17 21:16 78 144/65 05/16/17 20:04 93 Room Air 05/16/17 20:04 Room Air 05/16/17 20:00 98.2 75 20 144/50 95 Room Air 2.0 28 05/16/17 20:00 72 Height (Feet): 5 Height (Inches): 0.00 Weight (Pounds): 170 General Appearance: WD/WN, no acute distress HEENT: normocephalic, atraumatic, anicteric, mucous membranes moist, PERRL Respiratory/Chest: chest wall non-tender, normal breath sounds, no respiratory distress, no accessory muscle use, decreased breath sounds, crackles/rales Cardiovascular: normal peripheral pulses, normal rate, regular rhythm, regularly irregular, no gallop/murmur, no JVD Abdomen: normal bowel sounds, soft, non tender, no organomegaly, non distended , no mass, no scars Genitourinary: normal external genitalia Extremities: no cyanosis, no clubbing Skin: no rash, no lesions, no ulcers Neurologic/Psychiatric: alert, oriented x 3, responsive Lymphatic: no neck adenopathy, no groin adenopathy Musculoskeletal: normal muscle bulk, no effusion Laboratory Tests Test 05/17/17 08:07 White Blood Count 5.3 K/UL (4.8-10.8) Red Blood Count 3.03 M/UL (4.20-5.40) L Hemoglobin 9.1 G/DL (12.0-16.0) L Hematocrit 28.4 % (37.0-47.0) L Mean Corpuscular Volume 94 FL (80-99) Mean Corpuscular Hemoglobin 30.0 PG (27.0-31.0) Mean Corpuscular Hemoglobin Concent 32.0 G/DL (32.0-36.0) Red Cell Distribution Width 13.2 % (11.6-14.8) Platelet Count 231 K/UL (150-450) Mean Platelet Volume 6.9 FL (6.5-10.1) Neutrophils (%) (Auto) 73.7 % (45.0-75.0) Lymphocytes (%) (Auto) 11.7 % (20.0-45.0) L Monocytes (%) (Auto) 8.3 % (1.0-10.0) Eosinophils (%) (Auto) 4.7 % (0.0-3.0) H Basophils (%) (Auto) 1.6 % (0.0-2.0) Sodium Level 137 MMOL/L (136-145) Potassium Level 4.3 MMOL/L (3.5-5.1) Chloride Level 101 MMOL/L (98-107) Carbon Dioxide Level 23 MMOL/L (21-32) Blood Urea Nitrogen 80 mg/dL (7-18) H Creatinine 4.6 MG/DL (0.55-1.30) H Estimat Glomerular Filtration Rate 9.5 mL/min (>60) Glucose Level 325 MG/DL (74-106) H Uric Acid 7.2 MG/DL (2.6-7.2) Calcium Level 8.8 MG/DL (8.5-10.1) Phosphorus Level 4.9 MG/DL (2.5-4.9) Magnesium Level 2.0 MG/DL (1.8-2.4) Total Bilirubin 0.4 MG/DL (0.2-1.0) Aspartate Amino Transf (AST/SGOT) 21 U/L (15-37) Alanine Aminotransferase (ALT/SGPT) 13 U/L (12-78) Alkaline Phosphatase 122 U/L (46-116) H C-Reactive Protein, Quantitative 1.1 mg/dL (0.00-0.90) H Pro-B-Type Natriuretic Peptide 19454 (0-125) H Total Protein 7.0 G/DL (6.4-8.2) Albumin 3.0 G/DL (3.4-5.0) L Globulin 4.0 g/dL Albumin/Globulin Ratio 0.8 (1.0-2.7) L Current Medications Medications (Trade) Dose Ordered Sig/Toya Route PRN Reason Start Time Stop Time Status Last Admin Dose Admin Acetaminophen (Tylenol) 650 mg Q4H PRN ORAL Mild Pain/Temp > 100.5 05/15/17 01:54 06/11/17 01:53 05/16/17 02:07 Acetaminophen/ Hydrocodone Bitart ([place] 5/325) 1 tab Q4H PRN ORAL Mild Breakthrough Pain 05/15/17 01:57 05/20/17 01:56 05/17/17 09:42 Allopurinol (Allopurinol) 300 mg DAILY ORAL 05/15/17 09:00 06/13/17 13:59 05/17/17 09:29 Atorvastatin Calcium (Lipitor) 40 mg BEDTIME ORAL 05/16/17 21:00 06/15/17 20:59 05/16/17 21:16 Clonidine HCl (Catapres) 0.1 mg Q4H PRN ORAL bp over syst 160 05/15/17 05:00 06/11/17 04:59 Dextrose (Dextrose 50%) STAT PRN IV Hypoglycemia 05/17/17 13:45 06/16/17 13:44 Docusate Sodium (Colace) 100 mg TWICE A DAY ORAL 05/17/17 18:00 06/16/17 17:59 05/17/17 17:38 Epoetin Panchito (Procrit (for non ESRD use)) 10,000 units THU-THU-THU SUBQ 05/15/17 21:00 06/12/17 20:59 05/15/17 21:00 Folic Acid (Folate) 1 mg DAILY ORAL 05/17/17 09:00 06/16/17 08:59 05/17/17 09:28 Gabapentin (Neurontin) 300 mg BEDTIME ORAL 05/15/17 21:00 06/11/17 20:59 05/16/17 21:15 Hydralazine HCl (Apresoline) 100 mg Q8HR ORAL 05/15/17 14:00 06/14/17 13:59 05/17/17 13:11 Insulin Aspart (NovoLOG) BEFORE MEALS AND HS SUBQ 05/17/17 14:00 06/16/17 13:59 05/17/17 17:34 Isosorbide Mononitrate (Imdur) 90 mg DAILY ORAL 05/15/17 09:00 06/12/17 20:59 05/17/17 09:41 Lansoprazole (Prevacid) 30 mg DAILY ORAL 05/15/17 09:00 06/11/17 15:59 05/17/17 09:27 Levothyroxine Sodium (Synthroid) 25 mcg DAILY@0630 ORAL 05/15/17 06:30 06/12/17 06:29 05/17/17 06:01 Levothyroxine Sodium (Synthroid) 112 mcg DAILY@0630 ORAL 05/15/17 06:30 06/12/17 06:29 05/17/17 06:01 Metolazone (Zaroxolyn) 10 mg BID ORAL 05/15/17 18:00 06/12/17 08:29 05/17/17 17:38 Metoprolol Tartrate (Lopressor) 50 mg Q12HR ORAL 05/15/17 21:00 06/14/17 20:59 05/17/17 09:28 Nifedipine (Procardia XL) 60 mg Q12HR ORAL 05/15/17 09:00 06/13/17 20:59 05/17/17 09:30 Ondansetron HCl (Zofran) 4 mg Q6H PRN ORAL Nausea & Vomiting 05/17/17 12:15 06/16/17 12:14 Sennosides (Senokot) 8.6 mg DAILY ORAL 05/18/17 09:00 06/17/17 08:59 Anel Porras M.D. May 17, 2017 18:37
[2017-05-17] MEDS: Gabapentin 300 MG/6 ML Soln ORAL SCH (21:44)
--- NOTE | 2017-05-17 22:03 | General Progress Note ---
Assessment/Plan Assessment/Plan # Anemia of iron deficiency - low ferritin, has received iv iron --> continue to watch counts, HH slowly improving # Anemia of kidney disease - on venofer as well as epogen, agree will improve and mobilize iron stores # Anemia of b12 deficiency - b12 im sq doses # Acute respiratory failure- likely CHF # Renal failure, acute on Chronic # Diabetic Nephropathy # HTN Subjective Constitutional: Reports: no symptoms HEENT: Reports: no symptoms Cardiovascular: Reports: no symptoms Respiratory: Reports: no symptoms Gastrointestinal/Abdominal: Reports: no symptoms Genitourinary: Reports: no symptoms Neurologic/Psychiatric: Reports: no symptoms Endocrine: Reports: no symptoms Hematologic/Lymphatic: Reports: no symptoms Allergies: Coded Allergies: No Known Allergies (Unverified , 05/12/17) Subjective NAD Objective Last 24 Hour Vital Signs Date Time Temp Pulse Resp B/P (MAP) Pulse Ox O2 Delivery O2 Flow Rate FiO2 05/17/17 21:46 158/60 05/17/17 21:45 73 158/60 05/17/17 21:45 73 158/60 05/17/17 16:26 97.9 72 18 147/63 94 Room Air 05/17/17 16:00 71 05/17/17 13:11 143/60 05/17/17 12:00 97.5 73 18 143/60 93 Room Air 05/17/17 12:00 71 05/17/17 09:41 149/54 05/17/17 09:30 76 149/54 05/17/17 09:28 76 149/54 05/17/17 08:00 97.9 76 18 149/54 92 Room Air 05/17/17 08:00 78 05/17/17 07:20 Room Air 05/17/17 07:20 96 Room Air 05/17/17 07:20 76 17 Room Air 05/17/17 06:01 145/60 05/17/17 04:00 97.0 74 18 146/59 95 Room Air 2.0 28 05/17/17 04:00 74 05/17/17 00:10 156/55 05/17/17 00:00 74 05/17/17 00:00 98.0 71 18 160/59 95 Room Air 2.0 28 05/16/17 22:10 147/65 Intake and Output 05/17/17 05/18/17 19:00 07:00 Intake Total 720 ml Balance 720 ml Intake Oral 720 ml # Voids 2 Laboratory Tests 05/17/17 08:07: White Blood Count 5.3, Red Blood Count 3.03L, Hemoglobin 9.1L, Hematocrit 28.4L , Mean Corpuscular Volume 94, Mean Corpuscular Hemoglobin 30.0, Mean Corpuscular Hemoglobin Concent 32.0, Red Cell Distribution Width 13.2, Platelet Count 231, Mean Platelet Volume 6.9, Neutrophils (%) (Auto) 73.7, Lymphocytes (% ) (Auto) 11.7L, Monocytes (%) (Auto) 8.3, Eosinophils (%) (Auto) 4.7H, Basophils (%) (Auto) 1.6, Sodium Level 137, Potassium Level 4.3, Chloride Level 101, Carbon Dioxide Level 23, Blood Urea Nitrogen 80H, Creatinine 4.6H, Estimat Glomerular Filtration Rate 9.5, Glucose Level 325H, Uric Acid 7.2, Calcium Level 8.8, Phosphorus Level 4.9, Magnesium Level 2.0, Total Bilirubin 0.4, Aspartate Amino Transf (AST/SGOT) 21, Alanine Aminotransferase (ALT/SGPT) 13, Alkaline Phosphatase 122H, C-Reactive Protein, Quantitative 1.1H, Pro-B-Type Natriuretic Peptide 44717X, Total Protein 7.0, Albumin 3.0L, Globulin 4.0, Albumin/Globulin Ratio 0.8L Height (Feet): 5 Height (Inches): 0.00 Weight (Pounds): 170 General Appearance: no apparent distress EENT: normal ENT inspection Neck: normal alignment Cardiovascular: no gallop/murmur Edema: mild edema Neurologic: responsive Carl Daniels May 17, 2017 22:03
[2017-05-17] MEDS: Levemir Flexpen SUBQ SCH (22:04)
--- NOTE | 2017-05-17 23:36 | Cardiology Progress Note ---
Assessment/Plan Assessment/Plan 1. Dyspnea likely due to hypervolemia associated with CKD, echocardiography reveals normal LV systolic function with diastolic data consistent with normal intra-cardiac filling pressure, although there is element of abnormal LV relaxation due to hypertension. 2. HTN emergency with end-organ damage, optimize clonidine, beta-blockers, calcium- channel blockers, and metolazone, awaiting HD. 3. Small pericardial effusion. 4. ESRD Subjective Subjective Sinus rhythm at 73. Denies CP or SOB. Objective Last 24 Hour Vital Signs Date Time Temp Pulse Resp B/P (MAP) Pulse Ox O2 Delivery O2 Flow Rate FiO2 05/17/17 21:46 158/60 05/17/17 21:45 73 158/60 05/17/17 21:45 73 158/60 05/17/17 19:30 Room Air 21 05/17/17 19:30 94 Room Air 21 05/17/17 16:26 97.9 72 18 147/63 94 Room Air 05/17/17 16:00 71 05/17/17 13:11 143/60 05/17/17 12:00 97.5 73 18 143/60 93 Room Air 05/17/17 12:00 71 05/17/17 09:41 149/54 05/17/17 09:30 76 149/54 05/17/17 09:28 76 149/54 05/17/17 08:00 97.9 76 18 149/54 92 Room Air 05/17/17 08:00 78 05/17/17 07:20 Room Air 05/17/17 07:20 96 Room Air 05/17/17 07:20 76 17 Room Air 05/17/17 06:01 145/60 05/17/17 04:00 97.0 74 18 146/59 95 Room Air 2.0 28 05/17/17 04:00 74 05/17/17 00:10 156/55 05/17/17 00:00 74 05/17/17 00:00 98.0 71 18 160/59 95 Room Air 2.0 28 Intake and Output 05/17/17 05/18/17 19:00 07:00 Intake Total 720 ml Balance 720 ml Intake Oral 720 ml # Voids 2 2D Echo: LVEF 55%, small pericardial effusion, grade I LVDD, RVSP 32 mmHg Laboratory Tests Test 05/17/17 08:07 White Blood Count 5.3 K/UL (4.8-10.8) Red Blood Count 3.03 M/UL (4.20-5.40) L Hemoglobin 9.1 G/DL (12.0-16.0) L Hematocrit 28.4 % (37.0-47.0) L Mean Corpuscular Volume 94 FL (80-99) Mean Corpuscular Hemoglobin 30.0 PG (27.0-31.0) Mean Corpuscular Hemoglobin Concent 32.0 G/DL (32.0-36.0) Red Cell Distribution Width 13.2 % (11.6-14.8) Platelet Count 231 K/UL (150-450) Mean Platelet Volume 6.9 FL (6.5-10.1) Neutrophils (%) (Auto) 73.7 % (45.0-75.0) Lymphocytes (%) (Auto) 11.7 % (20.0-45.0) L Monocytes (%) (Auto) 8.3 % (1.0-10.0) Eosinophils (%) (Auto) 4.7 % (0.0-3.0) H Basophils (%) (Auto) 1.6 % (0.0-2.0) Sodium Level 137 MMOL/L (136-145) Potassium Level 4.3 MMOL/L (3.5-5.1) Chloride Level 101 MMOL/L (98-107) Carbon Dioxide Level 23 MMOL/L (21-32) Blood Urea Nitrogen 80 mg/dL (7-18) H Creatinine 4.6 MG/DL (0.55-1.30) H Estimat Glomerular Filtration Rate 9.5 mL/min (>60) Glucose Level 325 MG/DL (74-106) H Uric Acid 7.2 MG/DL (2.6-7.2) Calcium Level 8.8 MG/DL (8.5-10.1) Phosphorus Level 4.9 MG/DL (2.5-4.9) Magnesium Level 2.0 MG/DL (1.8-2.4) Total Bilirubin 0.4 MG/DL (0.2-1.0) Aspartate Amino Transf (AST/SGOT) 21 U/L (15-37) Alanine Aminotransferase (ALT/SGPT) 13 U/L (12-78) Alkaline Phosphatase 122 U/L (46-116) H C-Reactive Protein, Quantitative 1.1 mg/dL (0.00-0.90) H Pro-B-Type Natriuretic Peptide 59015 (0-125) H Total Protein 7.0 G/DL (6.4-8.2) Albumin 3.0 G/DL (3.4-5.0) L Globulin 4.0 g/dL Albumin/Globulin Ratio 0.8 (1.0-2.7) L Objective HEENT: Atraumatic and normocephalic. Pupils are equal, round, and reactive to light and accommodation. Extraocular muscles are intact. NECK: JVP is elevated about 10 to 15 cm. No carotid bruit. Carotid upstrokes 2+ bilaterally. CARDIOVASCULAR: Normal S1, S2. Regular rate and rhythm. There is a 2/6 mid systolic murmur at the left sternal border. There is no pericardial rub. PMI is at 4th intercostal space in the midclavicular line. LUNGS: Bibasilar crackles. ABDOMEN: Soft, nontender, and nondistended. No hepatosplenomegaly. Positive bowel sounds. EXTREMITIES: There is 1+ pitting edema bilaterally. NATI VOGEL May 17, 2017 23:36
[2017-05-18] VITALS (12 sets, daily range): BP systolic 152–170; BP diastolic 58–71
[2017-05-18] MEDS: Levothyroxine 25mcg tab ORAL SCH (06:16)
[2017-05-18] MEDS: HydrALAZINE 50mg tab ORAL SCH (06:16)
[2017-05-18] MEDS: NovoLOG Insulin Flexpen SUBQ SCH ×7 (06:30→21:22)
--- NOTE | 2017-05-18 08:15 | Consultation ---
DATE OF CONSULTATION: 05/13/2017 PAIN MANAGEMENT CONSULTATION CONSULTING PHYSICIAN: El De M.D. REFERRING PHYSICIAN: Makenna Daniel M.D. PHYSICIAN CERTIFIED ACTIVITIES DIRECTOR: Jhon Angela CHIEF COMPLAINT: Neck pain. HISTORY OF PRESENT ILLNESS: The patient is a 67-year-old female, who is being seen on the ICU of [facility] for initial comprehensive pain management consultation. The patient was admitted under the care of Dr. Daniel due to CHF exacerbation, found to have pneumonia and pleural effusion causing respiratory distress, was brought to the ICU complaining of neck pain for the past several days; spasm, sharp pain, shooting into her neck with movement. She has been on morphine 2mg IV every 4 hours as needed for severe pain, she has used 1 dose which has been helping to relieve her pain. At this time, we were consulted so that the patient would have adequate pain control while here in the hospital. PAST MEDICAL HISTORY: CHF, diabetes mellitus, and hypertension. PAST SURGICAL HISTORY: Unknown. SOCIAL HISTORY: Denies smoking, drinking, or drug abuse. ALLERGIES: No known drug allergies. MEDICATIONS: Simvastatin, Lasix, Neurontin, hydralazine, labetalol, Synthroid, furosemide. REVIEW OF SYSTEMS: Denies rash, fever, chills, sweating, dizziness, drowsiness, sore throat, or change in weight. No nausea, vomiting, diarrhea, or blood in the stool or urine. No bowel or bladder incontinence. She is complaining of neck pain. PHYSICAL EXAMINATION: GENERAL: Alert, awake, and oriented. VITAL SIGNS: Blood pressure 188/61, heart rate 66, oxygen saturation 100%, respiratory rate is 18, and temperature 98 degrees Fahrenheit. HEENT: PERRLA. NECK: Range of motion is decreased secondary to the patient's condition. No tenderness to paracervical muscles. No adenopathy. LUNGS: Decreased breath sounds bilaterally. HEART: S1 and S2, regular. ABDOMEN: Obese. BACK: Range of motion is decreased in flexion and extension with tenderness to paraspinal muscles. No tenderness to trapezius or rhomboid muscles. EXTREMITIES: Upper extremity range of motion is reduced due to the patient's clinical condition. Motor is intact. No cyanosis. No clubbing. No edema. Sensory is intact. Reflexes are not obtainable. No adenopathy. Lower extremity range of motion is decreased due to the patient's clinical condition. Motor is intact. No cyanosis. No clubbing. No cyanosis. Sensory is reduced. Reflexes are unobtainable. No adenopathy. ASSESSMENT AND PLAN: This is a 67-year-old female with cervicalgia muscle spasm, pneumonia, pleural effusion, and congestive heart failure. The patient will be continued on morphine 2 mg IV every 4 hours as needed for severe pain. She will be started on [place] 5/325 mg one tablet every 4 hours as needed for mild pain. We will order an x-ray of the cervical spine to rule out further pathology in the neck due to the patient's pain. The patient was discussed with Dr. De and Dr. De concurred. We will follow the patient. Thank you very much for the courtesy of this consultation. El De M.D. DENG Angela DR: MAYRA JOB#: [id number] CC: EDGAR
--- NOTE | 2017-05-18 08:15 | Consultation ---
DATE OF CONSULTATION: 05/12/2017 HEMATOLOGY/ONCOLOGY CONSULTATION CONSULTING PHYSICIAN: Carl Daniels M.D. REQUESTING PHYSICIAN: Makenna Daniel M.D. REASON FOR CONSULTATION: Evaluation of anemia and leukopenia. IDENTIFICATION: Dear Dr. Daniel: The patient is a pleasant 67-year-old female with a past medical history, which is significant for diabetes mellitus, CHF, chronic kidney disease, on dialysis, hypothyroidism, hyperlipidemia, at this time presents to the hospital with increasing shortness of breath, which has been going on for the past several days, was evaluated, found to have CHF, respiratory distress, was placed on nitroprusside drip. Admission was arranged, transferred to ICU, initiated on BiPAP, currently anemic, B12 level is severely low and the patient also noted to have iron deficiency. Hematology Service is consulted. PAST MEDICAL HISTORY: , end-stage renal disease, hypertension, diabetes mellitus, and CHF. MEDICATIONS: Lipitor, Lasix, Neurontin, hydralazine, Imdur, labetalol, . ALLERGIES: No known drug allergies. SOCIAL HISTORY: No alcohol, tobacco, or illicit drug use. REVIEW OF SYSTEMS: Unable to 01:43. PHYSICAL EXAMINATION: GENERAL: The patient is in no distress, on BiPAP. VITAL SIGNS: Reviewed. Saturation is 100%. CARDIOVASCULAR: Regular rate. No S3 or S4. GASTROINTESTINAL: Abdomen is soft, nontender, and nondistended. EXTREMITIES: 1 to 2+ edema. LABORATORY AND DIAGNOSTIC DATA: WBC 02:04 5.3, hemoglobin 7, hematocrit 21, and platelet count . BUN 60, creatinine , calcium is 8.1. 32, AST 13, ALT 9. B12 93 . TSH is 5.2. ASSESSMENT AND PLAN: 1. Anemia secondary to iron deficiency. Continue to closely monitor. Transfuse to hemoglobin goal above 8. 2. End-stage renal disease . 3. Anemia, secondary to kidney disease. obtained. 4. Leukopenia. 5. process. 6. Hepatitis, HIV. 7. Anemia secondary to B12 deficiency vitamin B12. 8. Congestive heart failure exacerbation, currently on Lasix as needed continue. 9. Chronic obstructive pulmonary disease, pulmonary effusion, edema. She is on BiPAP. 10. Hypertension, hypertensive heart disease. 11. Diabetes mellitus. . Continue to closely follow. Carl Daniels M.D. DR: DAMON JOB#: [id number] CC:
--- NOTE | 2017-05-18 08:26 | General Progress Note ---
Assessment/Plan Assessment/Plan (1) Cervicalgia, Cervical Spondylosis (2) Muscle spasm (3) Pneumonia (4) Pleural Effusion (5) Congestive heart failure Pt to be continued on [place] as needed. D/w Dr. De and he concurred. Subjective Date patient seen: May 18, 2017 Time patient seen: 07:45 - am Allergies: Coded Allergies: No Known Allergies (Unverified , 05/12/17) Subjective Constitutional: Reports: no symptoms HEENT: Reports: no symptoms Cardiovascular: Reports: no symptoms Respiratory: Reports: no symptoms Gastrointestinal/Abdominal: Reports: no symptoms Genitourinary: Reports: no symptoms Neurologic/Psychiatric: Reports: no symptoms Endocrine: Reports: no symptoms Hematologic/Lymphatic: Reports: no symptoms Subjective Patient is Green[place]ic speaking and is being interpreted. Pain has been stable and tolerated well on the [place]. Objective Last 24 Hour Vital Signs Date Time Temp Pulse Resp B/P (MAP) Pulse Ox O2 Delivery O2 Flow Rate FiO2 05/18/17 06:16 160/60 05/18/17 04:10 98.7 74 20 169/64 93 Room Air 05/18/17 04:00 76 05/18/17 00:10 98.0 75 20 152/64 95 Room Air 05/18/17 00:00 73 05/17/17 21:46 158/60 05/17/17 21:45 73 158/60 05/17/17 21:45 73 158/60 05/17/17 20:00 72 05/17/17 20:00 97.8 73 18 158/60 95 Room Air 05/17/17 19:30 Room Air 21 05/17/17 19:30 94 Room Air 21 05/17/17 16:26 97.9 72 18 147/63 94 Room Air 05/17/17 16:00 71 05/17/17 13:11 143/60 05/17/17 12:00 97.5 73 18 143/60 93 Room Air 05/17/17 12:00 71 05/17/17 09:41 149/54 05/17/17 09:30 76 149/54 05/17/17 09:28 76 149/54 Height (Feet): 5 Height (Inches): 0.00 Weight (Pounds): 170 Objective General Appearance: no apparent distress, alert EENT: PERRL/EOMI, normal ENT inspection Neck: supple, muscle spasm, pain on motion Cardiovascular: regular rhythm, regularly irregular Respiratory/Chest: lungs clear, normal breath sounds Abdomen: non tender, soft Extremities: non-tender Edema: trace edema Neurologic: alert, responsive Skin: warm/dry DICK RODRIGUEZ May 18, 2017 08:26
[2017-05-18 08:48] LABS: BASOPHILS % (AUTO) 1.3 % (0.0-2.0); EOSINOPHILS % (AUTO) 3.8 % (0.0-3.0); LYMPHOCYTES % (AUTO) 14.1 % (20.0-45.0); MEAN CORPUSCULAR HEMOGLOBIN 31.2 PG (27.0-31.0); MEAN CORPUSCULAR HGB CONC 33.6 G/DL (32.0-36.0); MEAN CORPUSCULAR VOLUME 93 FL (80-99); MEAN PLATELET VOLUME 6.5 FL (6.5-10.1); MONOCYTES % (AUTO) 7.8 % (1.0-10.0); PLATELET COUNT 208 K/UL (150-450); RED BLOOD COUNT 2.79 M/UL (4.20-5.40); RED CELL DISTRIBUTION WIDTH 13.4 % (11.6-14.8); WHITE BLOOD COUNT 6.1 K/UL (4.8-10.8)
[2017-05-18 08:54] LABS: PROTHROMBIN TIME 10.9 SEC (9.30-11.50)
[2017-05-18 08:56] LABS: ANION GAP 10 (5-15); CALCIUM 8.9 MG/DL (8.5-10.1); CARBON DIOXIDE 25 MMOL/L (21-32); CHLORIDE 104 MMOL/L (98-107); CREATININE 4.2 MG/DL (0.55-1.30); GLOMERULAR FILTRATION RATE 10.5 mL/min (>60); POTASSIUM 4.3 MMOL/L (3.5-5.1); SODIUM 139 MMOL/L (136-145)
[2017-05-18] MEDS: Levemir Flexpen SUBQ SCH ×2 (09:00→21:20)
[2017-05-18 09:20] LABS: ALANINE AMINOTRANSFERASE 17 U/L (12-78); ASPARTATE AMINO TRANSFERASE 20 U/L (15-37); BILIRUBIN,DIRECT 0.1 MG/DL (0.0-0.3); CRP QUANT 0.8 mg/dL (0.00-0.90); MAGNESIUM 2.2 MG/DL (1.8-2.4); PHOSPHORUS 5.2 MG/DL (2.5-4.9); TOTAL PROTEIN 6.3 G/DL (6.4-8.2); URIC ACID 6.7 MG/DL (2.6-7.2)
[2017-05-18] MEDS: Metoprolol Tartrate 50mg tab ORAL SCH ×2 (09:34→21:17)
[2017-05-18] MEDS: Docusate 100mg cap ORAL SCH ×2 (09:37→18:00)
[2017-05-18] MEDS: Imdur 30mg tab ORAL SCH (09:37)
--- NOTE | 2017-05-18 11:26 | Pulmonology Progress Note ---
Assessment/Plan Assessment/Plan 1. Pulmonary edema and pleural effusions. 2. Respiratory failure. 3. Renal failure. 4. Hypertension with hypertensive heart disease. 5. Diabetes. 6. Hyperlipidemia. 7. Hypothyroidism. breathing well bipap prn only permacath today HD per renal disc w RN pulm stable Subjective Interval Events: Feeling better; CXR done 05/15 sows no change Constitutional: Reports: no symptoms HEENT: Repors: no symptoms Respiratory: Reports: dry cough, shortness of breath Cardiovascular: Reports: no symptoms Gastrointestinal/Abdominal: Reports: no symptoms Genitourinary: Reports: no symptoms Allergies: Coded Allergies: No Known Allergies (Unverified , 05/12/17) Objective Last 24 Hour Vital Signs Date Time Temp Pulse Resp B/P (MAP) Pulse Ox O2 Delivery O2 Flow Rate FiO2 05/18/17 09:37 74 152/58 05/18/17 09:37 152/58 05/18/17 09:34 74 152/58 05/18/17 08:50 97.0 74 18 152/58 94 Room Air 05/18/17 06:16 160/60 05/18/17 04:10 98.7 74 20 169/64 93 Room Air 05/18/17 04:00 76 05/18/17 00:10 98.0 75 20 152/64 95 Room Air 05/18/17 00:00 73 05/17/17 21:46 158/60 05/17/17 21:45 73 158/60 05/17/17 21:45 73 158/60 05/17/17 20:00 72 05/17/17 20:00 97.8 73 18 158/60 95 Room Air 05/17/17 19:30 Room Air 21 05/17/17 19:30 94 Room Air 21 05/17/17 16:26 97.9 72 18 147/63 94 Room Air 05/17/17 16:00 71 05/17/17 13:11 143/60 05/17/17 12:00 97.5 73 18 143/60 93 Room Air 05/17/17 12:00 71 General Appearance: no acute distress HEENT: normocephalic Respiratory/Chest: chest wall non-tender, lungs clear Cardiovascular: normal peripheral pulses, normal rate Abdomen: normal bowel sounds Laboratory Tests 05/18/17 07:20: White Blood Count 6.1, Red Blood Count 2.79L, Hemoglobin 8.7L, Hematocrit 25.9L , Mean Corpuscular Volume 93, Mean Corpuscular Hemoglobin 31.2H, Mean Corpuscular Hemoglobin Concent 33.6, Red Cell Distribution Width 13.4, Platelet Count 208, Mean Platelet Volume 6.5, Neutrophils (%) (Auto) 73.0, Lymphocytes (% ) (Auto) 14.1L, Monocytes (%) (Auto) 7.8, Eosinophils (%) (Auto) 3.8H, Basophils (%) (Auto) 1.3, Prothrombin Time 10.9, Prothromb Time International Ratio 1.0, Activated Partial Thromboplast Time 30, Sodium Level 139, Potassium Level 4.3, Chloride Level 104, Carbon Dioxide Level 25, Anion Gap 10, Blood Urea Nitrogen 77H, Creatinine 4.2H, Estimat Glomerular Filtration Rate 10.5, Glucose Level 188#H, Hemoglobin A1c 7.1H, Uric Acid 6.7, Calcium Level 8.9, Phosphorus Level 5.2H, Magnesium Level 2.2, Total Bilirubin 0.4, Direct Bilirubin 0.1, Aspartate Amino Transf (AST/SGOT) 20, Alanine Aminotransferase ( ALT/SGPT) 17, Alkaline Phosphatase 118H, C-Reactive Protein, Quantitative 0.8, Pro-B-Type Natriuretic Peptide 96090A, Total Protein 6.3L, Albumin 3.0L Current Medications Medications (Trade) Dose Ordered Sig/Toya Route PRN Reason Start Time Stop Time Status Last Admin Dose Admin Acetaminophen (Tylenol) 650 mg Q4H PRN ORAL Mild Pain/Temp > 100.5 05/15/17 01:54 06/11/17 01:53 05/16/17 02:07 Acetaminophen/ Hydrocodone Bitart ([place] 5/325) 1 tab Q4H PRN ORAL Mild Breakthrough Pain 05/15/17 01:57 05/20/17 01:56 05/17/17 09:42 Allopurinol (Allopurinol) 300 mg DAILY ORAL 05/15/17 09:00 06/13/17 13:59 05/17/17 09:29 Atorvastatin Calcium (Lipitor) 40 mg BEDTIME ORAL 05/16/17 21:00 06/15/17 20:59 05/17/17 21:46 Clonidine HCl (Catapres) 0.1 mg Q4H PRN ORAL bp over syst 160 05/15/17 05:00 06/11/17 04:59 Dextrose (Dextrose 50%) STAT PRN IV Hypoglycemia 05/17/17 13:45 06/16/17 13:44 Docusate Sodium (Colace) 100 mg TWICE A DAY ORAL 05/17/17 18:00 06/16/17 17:59 05/18/17 09:37 Epoetin Panchito (Procrit (for non ESRD use)) 10,000 units THU-THU-THU SUBQ 05/15/17 21:00 06/12/17 20:59 05/15/17 21:00 Folic Acid (Folate) 1 mg DAILY ORAL 05/17/17 09:00 06/16/17 08:59 05/18/17 09:38 Gabapentin (Neurontin) 300 mg QHS ORAL 05/18/17 21:00 06/17/17 20:59 Hydralazine HCl (Apresoline) 100 mg Q8HR ORAL 05/15/17 14:00 06/14/17 13:59 05/18/17 06:16 Insulin Aspart (NovoLOG) BEFORE MEALS AND HS SUBQ 05/17/17 22:00 06/16/17 21:59 05/17/17 22:32 Insulin Aspart (NovoLOG) 10 units NOVOTIAC SUBQ 05/18/17 06:30 06/17/17 06:29 Insulin Detemir (Levemir) 15 units EVERY 12 HOURS SUBQ 05/17/17 21:00 06/16/17 20:59 05/17/17 22:04 Isosorbide Mononitrate (Imdur) 90 mg DAILY ORAL 05/15/17 09:00 06/12/17 20:59 05/18/17 09:37 Lansoprazole (Prevacid) 30 mg DAILY ORAL 05/15/17 09:00 06/11/17 15:59 05/18/17 09:37 Levothyroxine Sodium (Synthroid) 25 mcg DAILY@0630 ORAL 05/15/17 06:30 06/12/17 06:29 05/18/17 06:16 Levothyroxine Sodium (Synthroid) 112 mcg DAILY@0630 ORAL 05/15/17 06:30 06/12/17 06:29 10/16/17 06:16 Metolazone (Zaroxolyn) 10 mg BID ORAL 05/15/17 18:00 06/12/17 08:29 05/18/17 09:36 Metoprolol Tartrate (Lopressor) 50 mg Q12HR ORAL 05/15/17 21:00 06/14/17 20:59 05/18/17 09:34 Nifedipine (Procardia XL) 60 mg Q12HR ORAL 05/15/17 09:00 06/13/17 20:59 05/18/17 09:37 Ondansetron HCl (Zofran) 4 mg Q6H PRN ORAL Nausea & Vomiting 05/17/17 12:15 06/16/17 12:14 Sennosides (Senokot) 8.6 mg DAILY ORAL 05/18/17 09:00 06/17/17 08:59 05/18/17 09:37 Levy Allen MD May 18, 2017 11:26
--- NOTE | 2017-05-18 12:16 | General Progress Note ---
Assessment/Plan Status: unchanged Assessment/Plan status; Acute respiratory failure- likely CHF Renal failure, acute on Chronic Diabetic Nephropathy HTN Anemia: low B12- and low Iron Plan: stop Zaroxyllin initiate dialysis and UF- catheter ordered 05/15 was not yet placed !!!! change hydralazine to Zestril B12 SQ po Folate IV Iron Optimize cardiac and respiratory status keep BP and BS in check monitor renal parameters and Anemia yang 24 h urine in process CrCl 15 transfuse as needed Subjective ROS Limited/Unobtainable: No Constitutional: Reports: malaise, weakness Respiratory: Reports: shortness of breath Allergies: Coded Allergies: No Known Allergies (Unverified , 05/12/17) Objective Last 24 Hour Vital Signs Date Time Temp Pulse Resp B/P (MAP) Pulse Ox O2 Delivery O2 Flow Rate FiO2 05/18/17 11:53 98.4 72 18 160/66 95 Room Air 05/18/17 09:37 74 152/58 05/18/17 09:37 152/58 05/18/17 09:34 74 152/58 05/18/17 08:50 97.0 74 18 152/58 94 Room Air 05/18/17 06:16 160/60 05/18/17 04:10 98.7 74 20 169/64 93 Room Air 05/18/17 04:00 76 05/18/17 00:10 98.0 75 20 152/64 95 Room Air 05/18/17 00:00 73 05/17/17 21:46 158/60 05/17/17 21:45 73 158/60 05/17/17 21:45 73 158/60 05/17/17 20:00 72 05/17/17 20:00 97.8 73 18 158/60 95 Room Air 05/17/17 19:30 Room Air 21 05/17/17 19:30 94 Room Air 21 05/17/17 16:26 97.9 72 18 147/63 94 Room Air 05/17/17 16:00 71 05/17/17 13:11 143/60 Laboratory Tests 05/18/17 07:20: White Blood Count 6.1, Red Blood Count 2.79L, Hemoglobin 8.7L, Hematocrit 25.9L , Mean Corpuscular Volume 93, Mean Corpuscular Hemoglobin 31.2H, Mean Corpuscular Hemoglobin Concent 33.6, Red Cell Distribution Width 13.4, Platelet Count 208, Mean Platelet Volume 6.5, Neutrophils (%) (Auto) 73.0, Lymphocytes (% ) (Auto) 14.1L, Monocytes (%) (Auto) 7.8, Eosinophils (%) (Auto) 3.8H, Basophils (%) (Auto) 1.3, Prothrombin Time 10.9, Prothromb Time International Ratio 1.0, Activated Partial Thromboplast Time 30, Sodium Level 139, Potassium Level 4.3, Chloride Level 104, Carbon Dioxide Level 25, Anion Gap 10, Blood Urea Nitrogen 77H, Creatinine 4.2H, Estimat Glomerular Filtration Rate 10.5, Glucose Level 188#H, Hemoglobin A1c 7.1H, Uric Acid 6.7, Calcium Level 8.9, Phosphorus Level 5.2H, Magnesium Level 2.2, Total Bilirubin 0.4, Direct Bilirubin 0.1, Aspartate Amino Transf (AST/SGOT) 20, Alanine Aminotransferase ( ALT/SGPT) 17, Alkaline Phosphatase 118H, C-Reactive Protein, Quantitative 0.8, Pro-B-Type Natriuretic Peptide 47974I, Total Protein 6.3L, Albumin 3.0L Height (Feet): 5 Height (Inches): 0.00 Weight (Pounds): 170 General Appearance: lethargic Cardiovascular: regular rhythm Abdomen: distended Edema: 2+ Arm (L), 2+ Arm (R), 2+ Leg (L), 2+ Leg (R), 2+ Pedal (L), 2+ Pedal ( R), 2+ Generalized Objective no other changes VOLODYMYR DOUGLAS May 18, 2017 12:16
--- NOTE | 2017-05-18 13:30 | Consultation ---
DATE OF CONSULTATION: NOTE: VERY POOR AUDIO CONSULTING PHYSICIAN: Phong Joyce M.D. REFERRING PHYSICIAN: Makenna Daniel M.D. REASON FOR CONSULTATION: . She denies polyuria or polydipsia. . PERTINENT HISTORY: The patient was admitted with . PHYSICAL EXAMINATION: GENERAL: No acute distress. VITAL SIGNS: Blood pressure , heart rate was . HEENT: . Ears, nose, throat negative. . LUNGS: . [employer]: Cranial nerves essentially intact. . LABORATORY DATA: 01:16 status post PEG tube. ASSESSMENT: 01:23 currently under control. . PLAN: . Phong Joyce M.D. DR: Lulu JOB#: [id number] CC:
[2017-05-18] MEDS ORDERED: Lidocaine 2% 20mg/ml/Epi 0.005mg/ml 20ml vial INJ ONE (14:30)
[2017-05-18] MEDS ORDERED: Heparin 2000 units/Ns 1000ml INJ ONE (14:30)
[2017-05-18] MEDS ORDERED: Heparin Sod 1000 units/ml 10ml INJ ONE (14:30)
--- NOTE | 2017-05-18 14:36 | Cardiology Progress Note ---
Assessment/Plan Assessment/Plan 1. Dyspnea likely due to hypervolemia associated with CKD, receiving permacath now, normal LV systolic function with diastolic data consistent with normal intra-cardiac filling pressure, although there is element of abnormal LV relaxation due to hypertension. 2. HTN emergency with end-organ damage, optimize clonidine, beta-blockers, calcium- channel blockers, and metolazone, awaiting HD. 3. Small pericardial effusion. 4. ESRD Subjective Subjective Sinus rhythm at 70. Denies CP or SOB. Has gone for permacath placement. Objective Last 24 Hour Vital Signs Date Time Temp Pulse Resp B/P (MAP) Pulse Ox O2 Delivery O2 Flow Rate FiO2 05/18/17 14:13 73 16 05/18/17 11:53 98.4 72 18 160/66 95 Room Air 05/18/17 09:37 74 152/58 05/18/17 09:37 152/58 05/18/17 09:34 74 152/58 05/18/17 08:50 97.0 74 18 152/58 94 Room Air 05/18/17 06:16 160/60 05/18/17 04:10 98.7 74 20 169/64 93 Room Air 05/18/17 04:00 76 05/18/17 00:10 98.0 75 20 152/64 95 Room Air 05/18/17 00:00 73 05/17/17 21:46 158/60 05/17/17 21:45 73 158/60 05/17/17 21:45 73 158/60 05/17/17 20:00 72 05/17/17 20:00 97.8 73 18 158/60 95 Room Air 05/17/17 19:30 Room Air 21 05/17/17 19:30 94 Room Air 21 05/17/17 16:26 97.9 72 18 147/63 94 Room Air 05/17/17 16:00 71 2D Echo: LVEF 55%, small pericardial effusion, grade I LVDD, RVSP 32 mmHg Laboratory Tests Test 05/18/17 07:20 White Blood Count 6.1 K/UL (4.8-10.8) Red Blood Count 2.79 M/UL (4.20-5.40) L Hemoglobin 8.7 G/DL (12.0-16.0) L Hematocrit 25.9 % (37.0-47.0) L Mean Corpuscular Volume 93 FL (80-99) Mean Corpuscular Hemoglobin 31.2 PG (27.0-31.0) H Mean Corpuscular Hemoglobin Concent 33.6 G/DL (32.0-36.0) Red Cell Distribution Width 13.4 % (11.6-14.8) Platelet Count 208 K/UL (150-450) Mean Platelet Volume 6.5 FL (6.5-10.1) Neutrophils (%) (Auto) 73.0 % (45.0-75.0) Lymphocytes (%) (Auto) 14.1 % (20.0-45.0) L Monocytes (%) (Auto) 7.8 % (1.0-10.0) Eosinophils (%) (Auto) 3.8 % (0.0-3.0) H Basophils (%) (Auto) 1.3 % (0.0-2.0) Prothrombin Time 10.9 SEC (9.30-11.50) Prothromb Time International Ratio 1.0 (0.9-1.1) Activated Partial Thromboplast Time 30 SEC (23-33) Sodium Level 139 MMOL/L (136-145) Potassium Level 4.3 MMOL/L (3.5-5.1) Chloride Level 104 MMOL/L (98-107) Carbon Dioxide Level 25 MMOL/L (21-32) Anion Gap 10 (5-15) Blood Urea Nitrogen 77 mg/dL (7-18) H Creatinine 4.2 MG/DL (0.55-1.30) H Estimat Glomerular Filtration Rate 10.5 mL/min (>60) Glucose Level 188 MG/DL (74-106) #H Hemoglobin A1c 7.1 % (4.3-6.0) H Uric Acid 6.7 MG/DL (2.6-7.2) Calcium Level 8.9 MG/DL (8.5-10.1) Phosphorus Level 5.2 MG/DL (2.5-4.9) H Magnesium Level 2.2 MG/DL (1.8-2.4) Total Bilirubin 0.4 MG/DL (0.2-1.0) Direct Bilirubin 0.1 MG/DL (0.0-0.3) Aspartate Amino Transf (AST/SGOT) 20 U/L (15-37) Alanine Aminotransferase (ALT/SGPT) 17 U/L (12-78) Alkaline Phosphatase 118 U/L (46-116) H C-Reactive Protein, Quantitative 0.8 mg/dL (0.00-0.90) Pro-B-Type Natriuretic Peptide 99971 (0-125) H Total Protein 6.3 G/DL (6.4-8.2) L Albumin 3.0 G/DL (3.4-5.0) L Objective HEENT: Atraumatic and normocephalic. Pupils are equal, round, and reactive to light and accommodation. Extraocular muscles are intact. NECK: JVP is elevated about 10 to 15 cm. No carotid bruit. Carotid upstrokes 2+ bilaterally. CARDIOVASCULAR: Normal S1, S2. Regular rate and rhythm. There is a 2/6 mid systolic murmur at the left sternal border. There is no pericardial rub. PMI is at 4th intercostal space in the midclavicular line. LUNGS: Bibasilar crackles. ABDOMEN: Soft, nontender, and nondistended. No hepatosplenomegaly. Positive bowel sounds. EXTREMITIES: There is 1+ pitting edema bilaterally. NATI VOGEL May 18, 2017 14:36
[2017-05-18] MEDS ORDERED: ceFAZolin 1gm/50ml Premix 50 ML IV ONE (15:00)
[2017-05-18] MEDS ORDERED: CEFAZOLIN 1 GM/50 ML IV ONE (15:04)
--- NOTE | 2017-05-18 15:06 | Pre-Procedure Note/Attestation ---
Pre-Procedure Note/Attestation Complete Prior to Procedure Planned Procedure: not applicable Procedure Narrative: permacath Indications for Procedure Pre-Operative Diagnosis: ESRD Attestation I attest that I discussed the nature of the procedure; its benefits; risks and complications; and alternatives (and the risks and benefits of such alternatives ), prior to the procedure, with the patient (or the patient's legal phone representative). I attest that, if there was a reasonable possibility of needing a blood transfusion, the patient (or the patient's legal phone representative) was given the [facility] standardized written summary, pursuant to the [place] Blood Safety Act ([place] Health and Safety Code # 1645, as amended). I attest that I re-evaluated the patient just prior to the surgery and that there has been no change in the patient's H&P, except as documented below: MARILIN ROQUE M.D. May 18, 2017 15:06
[2017-05-18] MEDS ORDERED: ceFAZolin 1gm in D5W 55ml IVPB ONE (16:00)
--- NOTE | 2017-05-18 16:33 | Diagnostic Imaging Report ---
Indications: Needs long-term dialysis access Technique: Patient given IV Ancef . Total sterile technique, including sterile gloves, hand hygiene, hat, mask,, sterile gown, large sterile drape, and preparation with 2% chlorhexidine utilized. Local anesthesia with 1% lidocaine. Under real-time ultrasound guidance, puncture right internal jugular vein using 21-gauge micropuncture needle, passage 0.018 guidewire, exchange for 4 [place] micropuncture introducer. The guidewire was used to measure the appropriate catheter length, and was removed. The sheath was left in place. The subcutaneous tract was then anesthetized with 1% lidocaine. A chest dermatotomy was made . The tunneling device was used to pull a 14.5 [place] 23 cm BioBloc catheter through the subcutaneous tunnel to the neck dermatotomy. A guidewire was passed through the neck introducer into the inferior vena cava, and serial dilators were passed over it, followed by the introduction of a 14.5 [place] AirGuard peel-away sheath. The catheter was then introduced into the sheath, the peel-away sheath was removed. Digital radiograph documents satisfactory catheter tip position in the high right atrium, no kinking at the insertion site. Both catheter ports aspirated and flushed. Catheter was fixed to the skin. Patient tolerated procedure well without immediate complication. Total fluoroscopy time 70 seconds. Total dose area product 0.33642 mGycm2 . Comparison: None Findings: Completion radiograph documents satisfactory position and course of the catheter, catheter tip at the high right atrium. Impression: Successful placement of right transjugular tunneled dialysis catheter, as described above
[2017-05-18] MEDS: Lisinopril 20mg tab ORAL SCH (18:00)
--- NOTE | 2017-05-18 20:28 | General Progress Note ---
Assessment/Plan Problem List: (1) Anemia ICD Codes: D64.9 - Anemia, unspecified SNOMED: 974538647 (2) Renal failure ICD Codes: N19 - Unspecified kidney failure SNOMED: 21845693 (3) Pneumonia ICD Codes: J18.9 - Pneumonia, unspecified organism SNOMED: 770559570 (4) Acute exacerbation of CHF (congestive heart failure) ICD Codes: I50.9 - Heart failure, unspecified SNOMED: 59045130 (5) UTI (urinary tract infection) ICD Codes: N39.0 - Urinary tract infection, site not specified SNOMED: 67273818 (6) Respiratory failure with hypoxia ICD Codes: J96.91 - Respiratory failure, unspecified with hypoxia SNOMED: 47280344429502055 Status: progressing Assessment/Plan chf exacerbation improving getting HD ESRD dialysis per renal dr anemia of renal disease getting epogen Subjective ROS Limited/Unobtainable: Yes Constitutional: Reports: no symptoms Allergies: Coded Allergies: No Known Allergies (Unverified , 05/12/17) Objective Last 24 Hour Vital Signs Date Time Temp Pulse Resp B/P (MAP) Pulse Ox O2 Delivery O2 Flow Rate FiO2 05/18/17 20:00 98.4 78 22 156/64 95 Nasal Cannula 2.0 05/18/17 18:00 157/59 05/18/17 16:18 97.5 73 20 157/59 96 Nasal Cannula 3.0 05/18/17 16:00 72 05/18/17 15:10 74 22 167/71 99 Nasal Cannula 3.0 05/18/17 15:05 73 22 167/68 99 Nasal Cannula 3.0 05/18/17 15:00 73 22 167/68 98 Nasal Cannula 3.0 05/18/17 14:55 74 22 170/68 99 Nasal Cannula 3.0 05/18/17 14:50 72 20 162/66 99 Nasal Cannula 3.0 05/18/17 14:13 73 16 3.0 05/18/17 12:00 71 05/18/17 11:53 98.4 72 18 160/66 95 Room Air 05/18/17 09:37 74 152/58 05/18/17 09:37 152/58 05/18/17 09:34 74 152/58 05/18/17 08:50 97.0 74 18 152/58 94 Room Air 05/18/17 08:00 76 05/18/17 06:16 160/60 05/18/17 04:10 98.7 74 20 169/64 93 Room Air 05/18/17 04:00 76 05/18/17 00:10 98.0 75 20 152/64 95 Room Air 05/18/17 00:00 73 05/17/17 21:46 158/60 05/17/17 21:45 73 158/60 05/17/17 21:45 73 158/60 Intake and Output 05/18/17 05/19/17 19:00 07:00 Intake Total 120 ml Balance 120 ml Intake Oral 120 ml # Voids 1 Laboratory Tests 05/18/17 07:20: White Blood Count 6.1, Red Blood Count 2.79L, Hemoglobin 8.7L, Hematocrit 25.9L , Mean Corpuscular Volume 93, Mean Corpuscular Hemoglobin 31.2H, Mean Corpuscular Hemoglobin Concent 33.6, Red Cell Distribution Width 13.4, Platelet Count 208, Mean Platelet Volume 6.5, Neutrophils (%) (Auto) 73.0, Lymphocytes (% ) (Auto) 14.1L, Monocytes (%) (Auto) 7.8, Eosinophils (%) (Auto) 3.8H, Basophils (%) (Auto) 1.3, Prothrombin Time 10.9, Prothromb Time International Ratio 1.0, Activated Partial Thromboplast Time 30, Sodium Level 139, Potassium Level 4.3, Chloride Level 104, Carbon Dioxide Level 25, Anion Gap 10, Blood Urea Nitrogen 77H, Creatinine 4.2H, Estimat Glomerular Filtration Rate 10.5, Glucose Level 188#H, Hemoglobin A1c 7.1H, Uric Acid 6.7, Calcium Level 8.9, Phosphorus Level 5.2H, Magnesium Level 2.2, Total Bilirubin 0.4, Direct Bilirubin 0.1, Aspartate Amino Transf (AST/SGOT) 20, Alanine Aminotransferase ( ALT/SGPT) 17, Alkaline Phosphatase 118H, C-Reactive Protein, Quantitative 0.8, Pro-B-Type Natriuretic Peptide 18602Z, Total Protein 6.3L, Albumin 3.0L Height (Feet): 5 Height (Inches): 0.00 Weight (Pounds): 170 Cardiovascular: normal rate Makenna Daniel MD May 18, 2017 20:28
[2017-05-18] MEDS: Epogen (for non ESRD use) SUBQ SCH (21:25)
--- NOTE | 2017-05-18 21:56 | General Progress Note ---
Assessment/Plan Assessment/Plan # Anemia of iron deficiency - low ferritin, has received iv iron --> continue to watch counts # Anemia of kidney disease - on venofer as well as epogen, agree will improve and mobilize iron stores # Anemia of b12 deficiency - b12 im sq doses # Acute respiratory failure- likely CHF # Renal failure, acute on Chronic # Diabetic Nephropathy # HTN Subjective Hematologic/Lymphatic: Reports: anemia Allergies: Coded Allergies: No Known Allergies (Unverified , 05/12/17) All Systems: reviewed and negative except above Subjective NAD Objective Last 24 Hour Vital Signs Date Time Temp Pulse Resp B/P (MAP) Pulse Ox O2 Delivery O2 Flow Rate FiO2 05/18/17 21:17 77 165/67 05/18/17 21:17 77 165/65 05/18/17 20:00 98.4 78 22 156/64 95 Nasal Cannula 2.0 05/18/17 18:00 157/59 05/18/17 16:18 97.5 73 20 157/59 96 Nasal Cannula 3.0 05/18/17 16:00 72 05/18/17 15:10 74 22 167/71 99 Nasal Cannula 3.0 05/18/17 15:05 73 22 167/68 99 Nasal Cannula 3.0 05/18/17 15:00 73 22 167/68 98 Nasal Cannula 3.0 05/18/17 14:55 74 22 170/68 99 Nasal Cannula 3.0 05/18/17 14:50 72 20 162/66 99 Nasal Cannula 3.0 05/18/17 14:13 73 16 3.0 05/18/17 12:00 71 05/18/17 11:53 98.4 72 18 160/66 95 Room Air 05/18/17 09:37 74 152/58 05/18/17 09:37 152/58 05/18/17 09:34 74 152/58 05/18/17 08:50 97.0 74 18 152/58 94 Room Air 05/18/17 08:00 76 05/18/17 06:16 160/60 05/18/17 04:10 98.7 74 20 169/64 93 Room Air 05/18/17 04:00 76 05/18/17 00:10 98.0 75 20 152/64 95 Room Air 05/18/17 00:00 73 Intake and Output 05/18/17 05/19/17 19:00 07:00 Intake Total 120 ml Balance 120 ml Intake Oral 120 ml # Voids 1 Laboratory Tests 05/18/17 07:20: White Blood Count 6.1, Red Blood Count 2.79L, Hemoglobin 8.7L, Hematocrit 25.9L , Mean Corpuscular Volume 93, Mean Corpuscular Hemoglobin 31.2H, Mean Corpuscular Hemoglobin Concent 33.6, Red Cell Distribution Width 13.4, Platelet Count 208, Mean Platelet Volume 6.5, Neutrophils (%) (Auto) 73.0, Lymphocytes (% ) (Auto) 14.1L, Monocytes (%) (Auto) 7.8, Eosinophils (%) (Auto) 3.8H, Basophils (%) (Auto) 1.3, Prothrombin Time 10.9, Prothromb Time International Ratio 1.0, Activated Partial Thromboplast Time 30, Sodium Level 139, Potassium Level 4.3, Chloride Level 104, Carbon Dioxide Level 25, Anion Gap 10, Blood Urea Nitrogen 77H, Creatinine 4.2H, Estimat Glomerular Filtration Rate 10.5, Glucose Level 188#H, Hemoglobin A1c 7.1H, Uric Acid 6.7, Calcium Level 8.9, Phosphorus Level 5.2H, Magnesium Level 2.2, Total Bilirubin 0.4, Direct Bilirubin 0.1, Aspartate Amino Transf (AST/SGOT) 20, Alanine Aminotransferase ( ALT/SGPT) 17, Alkaline Phosphatase 118H, C-Reactive Protein, Quantitative 0.8, Pro-B-Type Natriuretic Peptide 95107L, Total Protein 6.3L, Albumin 3.0L Height (Feet): 5 Height (Inches): 0.00 Weight (Pounds): 170 General Appearance: no apparent distress EENT: normal ENT inspection Neck: normal inspection Cardiovascular: normal peripheral pulses, normal rate Respiratory/Chest: chest wall non-tender, lungs clear Abdomen: normal bowel sounds, non tender Edema: mild edema Carl Daniels May 18, 2017 21:56
[2017-05-18] MEDS: Norco 5mg/325mg tab ORAL PRN (22:55)
--- NOTE | 2017-05-18 23:20 | Infectious Diseases Prog Note ---
Subjective Allergies: Coded Allergies: No Known Allergies (Unverified , 05/12/17) Objective Vital Signs Last 24 Hour Vital Signs Date Time Temp Pulse Resp B/P (MAP) Pulse Ox O2 Delivery O2 Flow Rate FiO2 05/18/17 21:17 77 165/67 05/18/17 21:17 77 165/65 05/18/17 20:00 98.4 78 22 156/64 95 Nasal Cannula 2.0 05/18/17 18:00 157/59 05/18/17 16:18 97.5 73 20 157/59 96 Nasal Cannula 3.0 05/18/17 16:00 72 05/18/17 15:10 74 22 167/71 99 Nasal Cannula 3.0 05/18/17 15:05 73 22 167/68 99 Nasal Cannula 3.0 05/18/17 15:00 73 22 167/68 98 Nasal Cannula 3.0 05/18/17 14:55 74 22 170/68 99 Nasal Cannula 3.0 05/18/17 14:50 72 20 162/66 99 Nasal Cannula 3.0 05/18/17 14:13 73 16 3.0 05/18/17 12:00 71 05/18/17 11:53 98.4 72 18 160/66 95 Room Air 05/18/17 09:37 74 152/58 05/18/17 09:37 152/58 05/18/17 09:34 74 152/58 05/18/17 08:50 97.0 74 18 152/58 94 Room Air 05/18/17 08:00 76 05/18/17 06:16 160/60 05/18/17 04:10 98.7 74 20 169/64 93 Room Air 05/18/17 04:00 76 05/18/17 00:10 98.0 75 20 152/64 95 Room Air 05/18/17 00:00 73 Height (Feet): 5 Height (Inches): 0.00 Weight (Pounds): 170 Laboratory Tests Test 05/18/17 07:20 White Blood Count 6.1 K/UL (4.8-10.8) Red Blood Count 2.79 M/UL (4.20-5.40) L Hemoglobin 8.7 G/DL (12.0-16.0) L Hematocrit 25.9 % (37.0-47.0) L Mean Corpuscular Volume 93 FL (80-99) Mean Corpuscular Hemoglobin 31.2 PG (27.0-31.0) H Mean Corpuscular Hemoglobin Concent 33.6 G/DL (32.0-36.0) Red Cell Distribution Width 13.4 % (11.6-14.8) Platelet Count 208 K/UL (150-450) Mean Platelet Volume 6.5 FL (6.5-10.1) Neutrophils (%) (Auto) 73.0 % (45.0-75.0) Lymphocytes (%) (Auto) 14.1 % (20.0-45.0) L Monocytes (%) (Auto) 7.8 % (1.0-10.0) Eosinophils (%) (Auto) 3.8 % (0.0-3.0) H Basophils (%) (Auto) 1.3 % (0.0-2.0) Prothrombin Time 10.9 SEC (9.30-11.50) Prothromb Time International Ratio 1.0 (0.9-1.1) Activated Partial Thromboplast Time 30 SEC (23-33) Sodium Level 139 MMOL/L (136-145) Potassium Level 4.3 MMOL/L (3.5-5.1) Chloride Level 104 MMOL/L (98-107) Carbon Dioxide Level 25 MMOL/L (21-32) Anion Gap 10 (5-15) Blood Urea Nitrogen 77 mg/dL (7-18) H Creatinine 4.2 MG/DL (0.55-1.30) H Estimat Glomerular Filtration Rate 10.5 mL/min (>60) Glucose Level 188 MG/DL (74-106) #H Hemoglobin A1c 7.1 % (4.3-6.0) H Uric Acid 6.7 MG/DL (2.6-7.2) Calcium Level 8.9 MG/DL (8.5-10.1) Phosphorus Level 5.2 MG/DL (2.5-4.9) H Magnesium Level 2.2 MG/DL (1.8-2.4) Total Bilirubin 0.4 MG/DL (0.2-1.0) Direct Bilirubin 0.1 MG/DL (0.0-0.3) Aspartate Amino Transf (AST/SGOT) 20 U/L (15-37) Alanine Aminotransferase (ALT/SGPT) 17 U/L (12-78) Alkaline Phosphatase 118 U/L (46-116) H C-Reactive Protein, Quantitative 0.8 mg/dL (0.00-0.90) Pro-B-Type Natriuretic Peptide 42696 (0-125) H Total Protein 6.3 G/DL (6.4-8.2) L Albumin 3.0 G/DL (3.4-5.0) L Current Medications Medications (Trade) Dose Ordered Sig/Toya Route PRN Reason Start Time Stop Time Status Last Admin Dose Admin Acetaminophen (Tylenol) 650 mg Q4H PRN ORAL Mild Pain/Temp > 100.5 05/15/17 01:54 06/11/17 01:53 05/16/17 02:07 Acetaminophen/ Hydrocodone Bitart ([place] 5/325) 1 tab Q4H PRN ORAL Mild Breakthrough Pain 05/15/17 01:57 05/20/17 01:56 05/18/17 22:55 Atorvastatin Calcium (Lipitor) 40 mg BEDTIME ORAL 05/16/17 21:00 06/15/17 20:59 05/18/17 21:18 Clonidine HCl (Catapres) 0.1 mg Q4H PRN ORAL bp over syst 160 05/15/17 05:00 06/11/17 04:59 Dextrose (Dextrose 50%) STAT PRN IV Hypoglycemia 05/17/17 13:45 06/16/17 13:44 Docusate Sodium (Colace) 100 mg TWICE A DAY ORAL 05/17/17 18:00 06/16/17 17:59 05/18/17 09:37 Epoetin Panchito (Procrit (for non ESRD use)) 10,000 units MON-WED-THU SUBQ 05/15/17 21:00 06/12/17 20:59 05/18/17 21:25 Folic Acid (Folate) 1 mg DAILY ORAL 05/17/17 09:00 06/16/17 08:59 05/18/17 09:38 Gabapentin (Neurontin) 300 mg QHS ORAL 05/18/17 21:00 06/17/17 20:59 05/18/17 21:16 Insulin Aspart (NovoLOG) BEFORE MEALS AND HS SUBQ 05/17/17 22:00 06/16/17 21:59 05/18/17 21:22 Insulin Aspart (NovoLOG) 10 units NOVOTIAC SUBQ 05/18/17 06:30 06/17/17 06:29 05/18/17 17:21 Insulin Detemir (Levemir) 15 units EVERY 12 HOURS SUBQ 05/17/17 21:00 06/16/17 20:59 05/18/17 21:20 Isosorbide Mononitrate (Imdur) 90 mg DAILY ORAL 05/15/17 09:00 06/12/17 20:59 05/18/17 09:37 Lansoprazole (Prevacid) 30 mg DAILY ORAL 05/15/17 09:00 06/11/17 15:59 05/18/17 09:37 Levothyroxine Sodium (Synthroid) 25 mcg DAILY@0630 ORAL 05/15/17 06:30 06/12/17 06:29 05/18/17 06:16 Levothyroxine Sodium (Synthroid) 112 mcg DAILY@0630 ORAL 05/15/17 06:30 06/12/17 06:29 05/18/17 06:16 Lisinopril (Prinivil) 20 mg BID ORAL 05/18/17 18:00 06/17/17 17:59 05/18/17 18:00 Metoprolol Tartrate (Lopressor) 50 mg Q12HR ORAL 05/15/17 21:00 06/14/17 20:59 05/18/17 21:17 Nifedipine (Procardia XL) 60 mg Q12HR ORAL 05/15/17 09:00 06/13/17 20:59 05/18/17 21:17 Ondansetron HCl (Zofran) 4 mg Q6H PRN IVP Nausea & Vomiting 05/18/17 13:30 06/17/17 13:29 05/18/17 22:59 Sennosides (Senokot) 8.6 mg DAILY ORAL 05/18/17 09:00 06/17/17 08:59 05/18/17 09:37 VLAD ALMONTE May 18, 2017 23:20
[2017-05-19] VITALS (8 sets, daily range): BP systolic 148–180; BP diastolic 59–80
[2017-05-19] MEDS: Levothyroxine 25mcg tab ORAL SCH (06:11)
[2017-05-19] MEDS: NovoLOG Insulin Flexpen SUBQ SCH ×7 (06:29→20:54)
--- NOTE | 2017-05-19 08:32 | General Progress Note ---
Assessment/Plan Assessment/Plan (1) Cervicalgia, Cervical Spondylosis (2) Muscle spasm (3) Pneumonia (4) Pleural Effusion (5) Congestive heart failure Pt to be continued on [place] as needed. D/w Dr. De and he concurred. Subjective Date patient seen: May 19, 2017 Time patient seen: 07:30 - am Allergies: Coded Allergies: No Known Allergies (Unverified , 05/12/17) Subjective Constitutional: Reports: no symptoms HEENT: Reports: no symptoms Cardiovascular: Reports: no symptoms Respiratory: Reports: no symptoms Gastrointestinal/Abdominal: Reports: no symptoms Genitourinary: Reports: no symptoms Neurologic/Psychiatric: Reports: no symptoms Endocrine: Reports: no symptoms Hematologic/Lymphatic: Reports: no symptoms Subjective Patient is Citizen [place] speaking and is being interpreted. She is laying in bed no signs of pain or distress using the [place] as needed. Objective Last 24 Hour Vital Signs Date Time Temp Pulse Resp B/P (MAP) Pulse Ox O2 Delivery O2 Flow Rate FiO2 05/19/17 08:20 97.5 75 20 170/71 98 Nasal Cannula 2.0 05/19/17 04:00 70 05/19/17 04:00 97.5 75 18 154/68 Nasal Cannula 2.0 05/19/17 00:30 155/64 Nasal Cannula 2.0 05/19/17 00:16 98.4 78 22 167/59 92 Nasal Cannula 2.0 05/19/17 00:00 76 05/18/17 21:17 77 165/67 05/18/17 21:17 77 165/65 05/18/17 20:00 76 05/18/17 20:00 98.4 78 22 156/64 95 Nasal Cannula 2.0 05/18/17 19:30 92 Nasal Cannula 2.0 28 05/18/17 19:30 Nasal Cannula 2.0 28 05/18/17 18:00 157/59 05/18/17 16:18 97.5 73 20 157/59 96 Nasal Cannula 3.0 05/18/17 16:00 72 05/18/17 15:10 74 22 167/71 99 Nasal Cannula 3.0 05/18/17 15:05 73 22 167/68 99 Nasal Cannula 3.0 05/18/17 15:00 73 22 167/68 98 Nasal Cannula 3.0 05/18/17 14:55 74 22 170/68 99 Nasal Cannula 3.0 05/18/17 14:50 72 20 162/66 99 Nasal Cannula 3.0 05/18/17 14:13 73 16 3.0 05/18/17 12:00 71 05/18/17 11:53 98.4 72 18 160/66 95 Room Air 05/18/17 09:37 74 152/58 05/18/17 09:37 152/58 05/18/17 09:34 74 152/58 05/18/17 08:50 97.0 74 18 152/58 94 Room Air Height (Feet): 5 Height (Inches): 0.00 Weight (Pounds): 166 Objective General Appearance: no apparent distress, alert EENT: PERRL/EOMI, normal ENT inspection Neck: supple, muscle spasm, pain on motion Cardiovascular: regular rhythm, regularly irregular Respiratory/Chest: lungs clear, normal breath sounds Abdomen: non tender, soft Extremities: non-tender Edema: trace edema Neurologic: alert, responsive Skin: warm/dry DICK RODRIGUEZ May 19, 2017 08:32
[2017-05-19] MEDS: Imdur 30mg tab ORAL SCH (09:00)
[2017-05-19 09:45] LABS: HEPATITIS BE ANTIGEN/CEDARS NONREACTIVE (NONREACTIVE); HEPATITIS C VIRUS AB/CEDARS 0.25 S/CO (<0.80)
[2017-05-19] MEDS: Docusate 100mg cap ORAL SCH ×2 (10:19→18:00)
[2017-05-19] MEDS: Metoprolol Tartrate 50mg tab ORAL SCH ×2 (10:19→20:50)
[2017-05-19] MEDS: Lisinopril 20mg tab ORAL SCH ×2 (10:20→18:00)
[2017-05-19] MEDS: Levemir Flexpen SUBQ SCH ×2 (10:25→20:53)
--- NOTE | 2017-05-19 11:09 | General Progress Note ---
Assessment/Plan Status: stable Status Narrative has permacath left chest dialysed 05/18 Assessment/Plan status; Acute respiratory failure- likely CHF Renal failure, acute on Chronic Diabetic Nephropathy HTN Anemia: low B12- and low Iron Plan: dialysed 05/18 OK to DC on current meds if OP dialysis is arranged Subjective ROS Limited/Unobtainable: No Allergies: Coded Allergies: No Known Allergies (Unverified , 05/12/17) Objective Last 24 Hour Vital Signs Date Time Temp Pulse Resp B/P (MAP) Pulse Ox O2 Delivery O2 Flow Rate FiO2 05/19/17 10:20 170/71 05/19/17 10:20 75 170/71 05/19/17 10:19 75 170/71 05/19/17 09:00 170/71 05/19/17 08:20 97.5 75 20 170/71 98 Nasal Cannula 2.0 05/19/17 04:00 70 05/19/17 04:00 97.5 75 18 154/68 Nasal Cannula 2.0 05/19/17 00:30 155/64 Nasal Cannula 2.0 05/19/17 00:16 98.4 78 22 167/59 92 Nasal Cannula 2.0 05/19/17 00:00 76 05/18/17 21:17 77 165/67 05/18/17 21:17 77 165/65 05/18/17 20:00 76 05/18/17 20:00 98.4 78 22 156/64 95 Nasal Cannula 2.0 05/18/17 19:30 92 Nasal Cannula 2.0 28 05/18/17 19:30 Nasal Cannula 2.0 28 05/18/17 18:00 157/59 05/18/17 16:18 97.5 73 20 157/59 96 Nasal Cannula 3.0 05/18/17 16:00 72 05/18/17 15:10 74 22 167/71 99 Nasal Cannula 3.0 05/18/17 15:05 73 22 167/68 99 Nasal Cannula 3.0 05/18/17 15:00 73 22 167/68 98 Nasal Cannula 3.0 05/18/17 14:55 74 22 170/68 99 Nasal Cannula 3.0 05/18/17 14:50 72 20 162/66 99 Nasal Cannula 3.0 05/18/17 14:13 73 16 3.0 05/18/17 12:00 71 10/16/17 11:53 98.4 72 18 160/66 95 Room Air Intake and Output 05/19/17 05/20/17 19:00 07:00 Intake Total 120 ml Balance 120 ml Intake Oral 120 ml Current Medications Medications (Trade) Dose Ordered Sig/Toya Route PRN Reason Start Time Stop Time Status Last Admin Dose Admin Acetaminophen (Tylenol) 650 mg Q4H PRN ORAL Mild Pain/Temp > 100.5 05/15/17 01:54 06/11/17 01:53 05/16/17 02:07 Acetaminophen/ Hydrocodone Bitart ([place] 5/325) 1 tab Q4H PRN ORAL Mild Breakthrough Pain 05/15/17 01:57 05/20/17 01:56 05/18/17 22:55 Atorvastatin Calcium (Lipitor) 40 mg BEDTIME ORAL 05/16/17 21:00 06/15/17 20:59 05/18/17 21:18 Clonidine HCl (Catapres) 0.1 mg Q4H PRN ORAL bp over syst 160 05/15/17 05:00 06/11/17 04:59 Dextrose (Dextrose 50%) STAT PRN IV Hypoglycemia 05/17/17 13:45 06/16/17 13:44 Docusate Sodium (Colace) 100 mg TWICE A DAY ORAL 05/17/17 18:00 06/16/17 17:59 05/19/17 10:19 Epoetin Panchito (Procrit (for non ESRD use)) 10,000 units MON-WED-THU SUBQ 05/15/17 21:00 06/12/17 20:59 05/18/17 21:25 Folic Acid (Folate) 1 mg DAILY ORAL 05/17/17 09:00 06/16/17 08:59 05/19/17 10:20 Gabapentin (Neurontin) 300 mg QHS ORAL 05/18/17 21:00 06/17/17 20:59 05/18/17 21:16 Insulin Aspart (NovoLOG) BEFORE MEALS AND HS SUBQ 05/17/17 22:00 06/16/17 21:59 05/19/17 06:29 Insulin Aspart (NovoLOG) 10 units NOVOTIAC SUBQ 05/18/17 06:30 06/17/17 06:29 05/19/17 12:15 Insulin Detemir (Levemir) 15 units EVERY 12 HOURS SUBQ 05/17/17 21:00 06/16/17 20:59 05/19/17 10:25 Isosorbide Mononitrate (Imdur) 90 mg DAILY ORAL 05/15/17 09:00 06/12/17 20:59 05/19/17 09:00 Lansoprazole (Prevacid) 30 mg DAILY ORAL 05/15/17 09:00 06/11/17 15:59 05/19/17 10:19 Levothyroxine Sodium (Synthroid) 25 mcg DAILY@0630 ORAL 05/15/17 06:30 06/12/17 06:29 05/19/17 06:11 Levothyroxine Sodium (Synthroid) 112 mcg DAILY@0630 ORAL 05/15/17 06:30 06/12/17 06:29 05/19/17 06:11 Lisinopril (Prinivil) 20 mg BID ORAL 05/18/17 18:00 06/17/17 17:59 05/19/17 10:20 Metoprolol Tartrate (Lopressor) 50 mg Q12HR ORAL 05/15/17 21:00 06/14/17 20:59 05/19/17 10:19 Nifedipine (Procardia XL) 60 mg Q12HR ORAL 05/15/17 09:00 06/13/17 20:59 05/19/17 10:20 Ondansetron HCl (Zofran) 4 mg Q6H PRN IVP Nausea & Vomiting 05/18/17 13:30 06/17/17 13:29 05/18/17 22:59 Sennosides (Senokot) 8.6 mg DAILY ORAL 05/18/17 09:00 06/17/17 08:59 05/19/17 10:19 Height (Feet): 5 Height (Inches): 0.00 Weight (Pounds): 166 General Appearance: no apparent distress Cardiovascular: normal rate Respiratory/Chest: decreased breath sounds Abdomen: soft Objective no other changes VOLODYMYR DOUGLAS May 19, 2017 11:09
--- NOTE | 2017-05-19 18:06 | Pulmonology Progress Note ---
Assessment/Plan Assessment/Plan 1. Pulmonary edema and pleural effusions. 2. Respiratory failure. 3. Renal failure. 4. Hypertension with hypertensive heart disease. 5. Diabetes. 6. Hyperlipidemia. 7. Hypothyroidism. breathing well bipap prn only permacath and HD per renal disc w RN pulm stable Subjective Interval Events: None Constitutional: Reports: no symptoms HEENT: Repors: no symptoms Respiratory: Reports: no symptoms Cardiovascular: Reports: no symptoms Gastrointestinal/Abdominal: Reports: no symptoms Allergies: Coded Allergies: No Known Allergies (Unverified , 05/12/17) Objective Last 24 Hour Vital Signs Date Time Temp Pulse Resp B/P (MAP) Pulse Ox O2 Delivery O2 Flow Rate FiO2 05/19/17 15:34 98.4 75 20 148/76 96 Nasal Cannula 2.0 05/19/17 12:00 72 05/19/17 11:47 98.4 73 20 167/71 97 Nasal Cannula 2.0 05/19/17 10:20 170/71 05/19/17 10:20 75 170/71 05/19/17 10:19 75 170/71 05/19/17 09:00 170/71 05/19/17 08:20 97.5 75 20 170/71 98 Nasal Cannula 2.0 05/19/17 08:00 72 05/19/17 04:00 70 05/19/17 04:00 97.5 75 18 154/68 Nasal Cannula 2.0 05/19/17 00:30 155/64 Nasal Cannula 2.0 05/19/17 00:16 98.4 78 22 167/59 92 Nasal Cannula 2.0 05/19/17 00:00 76 05/18/17 21:17 77 165/67 05/18/17 21:17 77 165/65 05/18/17 20:00 76 05/18/17 20:00 98.4 78 22 156/64 95 Nasal Cannula 2.0 05/18/17 19:30 92 Nasal Cannula 2.0 28 05/18/17 19:30 Nasal Cannula 2.0 28 Intake and Output 05/19/17 05/20/17 19:00 07:00 Intake Total 240 ml Balance 240 ml Intake Oral 240 ml # Voids 1 General Appearance: no acute distress HEENT: normocephalic Respiratory/Chest: chest wall non-tender, lungs clear Cardiovascular: normal peripheral pulses Current Medications Medications (Trade) Dose Ordered Sig/Toya Route PRN Reason Start Time Stop Time Status Last Admin Dose Admin Acetaminophen (Tylenol) 650 mg Q4H PRN ORAL Mild Pain/Temp > 100.5 05/15/17 01:54 06/11/17 01:53 05/16/17 02:07 Acetaminophen/ Hydrocodone Bitart ([place] 5/325) 1 tab Q4H PRN ORAL Mild Breakthrough Pain 05/15/17 01:57 05/20/17 01:56 05/18/17 22:55 Atorvastatin Calcium (Lipitor) 40 mg BEDTIME ORAL 05/16/17 21:00 06/15/17 20:59 05/18/17 21:18 Clonidine HCl (Catapres) 0.1 mg Q4H PRN ORAL bp over syst 160 05/15/17 05:00 06/11/17 04:59 Dextrose (Dextrose 50%) STAT PRN IV Hypoglycemia 05/17/17 13:45 06/16/17 13:44 Docusate Sodium (Colace) 100 mg TWICE A DAY ORAL 05/17/17 18:00 06/16/17 17:59 05/19/17 10:19 Epoetin Panchito (Procrit (for non ESRD use)) 10,000 units THU-WED-THU SUBQ 05/15/17 21:00 06/12/17 20:59 05/18/17 21:25 Folic Acid (Folate) 1 mg DAILY ORAL 05/17/17 09:00 06/16/17 08:59 05/19/17 10:20 Gabapentin (Neurontin) 300 mg QHS ORAL 05/18/17 21:00 06/17/17 20:59 05/18/17 21:16 Insulin Aspart (NovoLOG) BEFORE MEALS AND HS SUBQ 05/17/17 22:00 06/16/17 21:59 05/19/17 06:29 Insulin Aspart (NovoLOG) 10 units NOVOTIAC SUBQ 05/18/17 06:30 06/17/17 06:29 05/19/17 12:15 Insulin Detemir (Levemir) 15 units EVERY 12 HOURS SUBQ 05/17/17 21:00 06/16/17 20:59 05/19/17 10:25 Isosorbide Mononitrate (Imdur) 90 mg DAILY ORAL 05/15/17 09:00 06/12/17 20:59 05/19/17 09:00 Lansoprazole (Prevacid) 30 mg DAILY ORAL 05/15/17 09:00 06/11/17 15:59 05/19/17 10:19 Levothyroxine Sodium (Synthroid) 25 mcg DAILY@0630 ORAL 05/15/17 06:30 06/12/17 06:29 05/19/17 06:11 Levothyroxine Sodium (Synthroid) 112 mcg DAILY@0630 ORAL 05/15/17 06:30 06/12/17 06:29 05/19/17 06:11 Lisinopril (Prinivil) 20 mg BID ORAL 05/18/17 18:00 06/17/17 17:59 05/19/17 10:20 Metoprolol Tartrate (Lopressor) 50 mg Q12HR ORAL 05/15/17 21:00 06/14/17 20:59 05/19/17 10:19 Nifedipine (Procardia XL) 60 mg Q12HR ORAL 05/15/17 09:00 06/13/17 20:59 05/19/17 10:20 Ondansetron HCl (Zofran) 4 mg Q6H PRN IVP Nausea & Vomiting 05/18/17 13:30 06/17/17 13:29 05/18/17 22:59 Sennosides (Senokot) 8.6 mg DAILY ORAL 05/18/17 09:00 06/17/17 08:59 05/19/17 10:19 Levy Allen MD May 19, 2017 18:06
[2017-05-19] MEDS ORDERED: Norco 5mg/325mg tab ORAL PRN (18:15)
--- NOTE | 2017-05-19 18:59 | General Progress Note ---
Assessment/Plan Assessment/Plan # Anemia of iron deficiency - low ferritin, has received iv iron --> continue to watch counts --> to receive one unit prbc today # Anemia of kidney disease - on venofer as well as epogen, agree will improve and mobilize iron stores # Anemia of b12 deficiency - b12 im sq doses # Acute respiratory failure- likely CHF # Renal failure, acute on Chronic # Diabetic Nephropathy # HTN Subjective Constitutional: Reports: no symptoms HEENT: Reports: no symptoms Cardiovascular: Reports: no symptoms Respiratory: Reports: no symptoms Gastrointestinal/Abdominal: Reports: no symptoms Genitourinary: Reports: no symptoms Neurologic/Psychiatric: Reports: no symptoms Endocrine: Reports: no symptoms Hematologic/Lymphatic: Reports: no symptoms Allergies: Coded Allergies: No Known Allergies (Unverified , 05/12/17) Subjective sleepy Objective Last 24 Hour Vital Signs Date Time Temp Pulse Resp B/P (MAP) Pulse Ox O2 Delivery O2 Flow Rate FiO2 05/19/17 18:00 148/76 05/19/17 15:34 98.4 75 20 148/76 96 Nasal Cannula 2.0 05/19/17 12:00 72 05/19/17 11:47 98.4 73 20 167/71 97 Nasal Cannula 2.0 05/19/17 10:20 170/71 05/19/17 10:20 75 170/71 05/19/17 10:19 75 170/71 05/19/17 09:00 170/71 05/19/17 08:20 97.5 75 20 170/71 98 Nasal Cannula 2.0 05/19/17 08:00 72 05/19/17 04:00 70 05/19/17 04:00 97.5 75 18 154/68 Nasal Cannula 2.0 05/19/17 00:30 155/64 Nasal Cannula 2.0 05/19/17 00:16 98.4 78 22 167/59 92 Nasal Cannula 2.0 05/19/17 00:00 76 05/18/17 21:17 77 165/67 05/18/17 21:17 77 165/65 05/18/17 20:00 76 05/18/17 20:00 98.4 78 22 156/64 95 Nasal Cannula 2.0 05/18/17 19:30 92 Nasal Cannula 2.0 28 05/18/17 19:30 Nasal Cannula 2.0 28 Intake and Output 05/19/17 05/20/17 19:00 07:00 Intake Total 360 ml Balance 360 ml Intake Oral 360 ml # Voids 1 Height (Feet): 5 Height (Inches): 0.00 Weight (Pounds): 166 General Appearance: no apparent distress EENT: normal ENT inspection Neck: normal alignment Cardiovascular: normal peripheral pulses Extremities: normal range of motion Skin: normal pigmentation Carl Daniels May 19, 2017 18:59
--- NOTE | 2017-05-19 20:23 | General Progress Note ---
Assessment/Plan Problem List: (1) Anemia ICD Codes: D64.9 - Anemia, unspecified SNOMED: 614067042 (2) Renal failure ICD Codes: N19 - Unspecified kidney failure SNOMED: 29257179 (3) Pneumonia ICD Codes: J18.9 - Pneumonia, unspecified organism SNOMED: 530113331 (4) Acute exacerbation of CHF (congestive heart failure) ICD Codes: I50.9 - Heart failure, unspecified SNOMED: 16791406 (5) UTI (urinary tract infection) ICD Codes: N39.0 - Urinary tract infection, site not specified SNOMED: 89107445 (6) Respiratory failure with hypoxia ICD Codes: J96.91 - Respiratory failure, unspecified with hypoxia SNOMED: 64023349348478963 Status: progressing Assessment/Plan chf esrd on hd afebrile vitals stable uti improving reviewed chart and labs neeeds to go to snf for pt and ot and close monitoring Subjective ROS Limited/Unobtainable: Yes Allergies: Coded Allergies: No Known Allergies (Unverified , 05/12/17) Objective Last 24 Hour Vital Signs Date Time Temp Pulse Resp B/P (MAP) Pulse Ox O2 Delivery O2 Flow Rate FiO2 05/19/17 19:55 191/75 05/19/17 19:41 Nasal Cannula 2.0 28 05/19/17 19:41 95 Nasal Cannula 2.0 28 05/19/17 18:00 148/76 05/19/17 16:00 72 05/19/17 15:34 98.4 75 20 148/76 96 Nasal Cannula 2.0 05/19/17 12:00 72 05/19/17 11:47 98.4 73 20 167/71 97 Nasal Cannula 2.0 05/19/17 10:20 170/71 05/19/17 10:20 75 170/71 05/19/17 10:19 75 170/71 05/19/17 09:00 170/71 05/19/17 08:20 97.5 75 20 170/71 98 Nasal Cannula 2.0 05/19/17 08:00 72 05/19/17 04:00 70 05/19/17 04:00 97.5 75 18 154/68 Nasal Cannula 2.0 05/19/17 00:30 155/64 Nasal Cannula 2.0 05/19/17 00:16 98.4 78 22 167/59 92 Nasal Cannula 2.0 05/19/17 00:00 76 05/18/17 21:17 77 165/67 05/18/17 21:17 77 165/65 Intake and Output 05/19/17 05/20/17 19:00 07:00 Intake Total 360 ml Balance 360 ml Intake Oral 360 ml # Voids 1 Height (Feet): 5 Height (Inches): 0.00 Weight (Pounds): 166 EENT: PERRL/Makenna Maria MD May 19, 2017 20:23
--- NOTE | 2017-05-19 22:03 | Cardiology Progress Note ---
Assessment/Plan Assessment/Plan 1. Dyspnea likely due to hypervolemia associated with ESRD, normal LV systolic function with diastolic data consistent with normal intra-cardiac filling pressure, although there is element of abnormal LV relaxation due to hypertension. 2. HTN emergency with end-organ damage, optimize clonidine, beta-blockers, calcium- channel blockers, and metolazone, scheduled for HD. 3. Small pericardial effusion. 4. ESRD Subjective Subjective Sinus rhythm at 80. Denies CP or SOB. s/p permacath insertion. Objective Last 24 Hour Vital Signs Date Time Temp Pulse Resp B/P (MAP) Pulse Ox O2 Delivery O2 Flow Rate FiO2 05/19/17 20:51 80 188/77 05/19/17 20:50 80 188/77 05/19/17 20:28 98.1 110 19 180/80 93 Room Air 05/19/17 19:55 191/75 05/19/17 19:41 Nasal Cannula 2.0 28 05/19/17 19:41 95 Nasal Cannula 2.0 28 05/19/17 18:00 148/76 05/19/17 16:00 72 05/19/17 15:34 98.4 75 20 148/76 96 Nasal Cannula 2.0 05/19/17 12:00 72 05/19/17 11:47 98.4 73 20 167/71 97 Nasal Cannula 2.0 05/19/17 10:20 170/71 05/19/17 10:20 75 170/71 05/19/17 10:19 75 170/71 05/19/17 09:00 170/71 05/19/17 08:20 97.5 75 20 170/71 98 Nasal Cannula 2.0 05/19/17 08:00 72 05/19/17 04:00 70 05/19/17 04:00 97.5 75 18 154/68 Nasal Cannula 2.0 05/19/17 00:30 155/64 Nasal Cannula 2.0 05/19/17 00:16 98.4 78 22 167/59 92 Nasal Cannula 2.0 05/19/17 00:00 76 Intake and Output 05/19/17 05/20/17 19:00 07:00 Intake Total 360 ml Balance 360 ml Intake Oral 360 ml # Voids 1 2D Echo: LVEF 55%, small pericardial effusion, grade I LVDD, RVSP 32 mmHg Objective HEENT: Atraumatic and normocephalic. Pupils are equal, round, and reactive to light and accommodation. Extraocular muscles are intact. NECK: JVP is elevated about 10 to 15 cm. No carotid bruit. Carotid upstrokes 2+ bilaterally. CARDIOVASCULAR: Normal S1, S2. Regular rate and rhythm. There is a 2/6 mid systolic murmur at the left sternal border. There is no pericardial rub. PMI is at 4th intercostal space in the midclavicular line. LUNGS: Bibasilar crackles, left chest Permacath in place. ABDOMEN: Soft, nontender, and nondistended. No hepatosplenomegaly. Positive bowel sounds. EXTREMITIES: There is 1+ pitting edema bilaterally. NATI VOGEL May 19, 2017 22:03
[2017-05-20] VITALS (7 sets, daily range): BP systolic 136–173; BP diastolic 62–85
[2017-05-20] MEDS: NovoLOG Insulin Flexpen SUBQ SCH ×3 (06:42→12:04)
[2017-05-20] MEDS: Levothyroxine 25mcg tab ORAL SCH (06:44)
--- NOTE | 2017-05-20 08:28 | General Progress Note ---
Assessment/Plan Assessment/Plan (1) Cervicalgia, Cervical Spondylosis (2) Muscle spasm (3) Pneumonia (4) Pleural Effusion (5) Congestive heart failure Pt to be continued on [place] as needed. D/w Dr. De and he concurred. Subjective Date patient seen: May 20, 2017 Time patient seen: 08:00 - am Allergies: Coded Allergies: No Known Allergies (Unverified , 05/12/17) Subjective Constitutional: Reports: no symptoms HEENT: Reports: no symptoms Cardiovascular: Reports: no symptoms Respiratory: Reports: no symptoms Gastrointestinal/Abdominal: Reports: no symptoms Genitourinary: Reports: no symptoms Neurologic/Psychiatric: Reports: no symptoms Endocrine: Reports: no symptoms Hematologic/Lymphatic: Reports: no symptoms Subjective Patient is [place] speaking and is being interpreted. No c/o pain at this time and is comfortable. Objective Last 24 Hour Vital Signs Date Time Temp Pulse Resp B/P (MAP) Pulse Ox O2 Delivery O2 Flow Rate FiO2 05/20/17 04:00 98.4 70 20 160/62 97 Room Air 05/20/17 02:38 70 05/20/17 00:29 168/62 05/20/17 00:04 77 05/19/17 23:46 178/77 05/19/17 23:15 98.0 80 20 178/77 97 Nasal Cannula 2.0 05/19/17 20:51 80 188/77 05/19/17 20:50 80 188/77 05/19/17 20:28 98.1 110 19 180/80 93 Room Air 05/19/17 20:27 80 05/19/17 19:55 191/75 05/19/17 19:41 Nasal Cannula 2.0 28 05/19/17 19:41 95 Nasal Cannula 2.0 28 05/19/17 18:00 148/76 05/19/17 16:00 72 05/19/17 15:34 98.4 75 20 148/76 96 Nasal Cannula 2.0 05/19/17 12:00 72 05/19/17 11:47 98.4 73 20 167/71 97 Nasal Cannula 2.0 05/19/17 10:20 170/71 05/19/17 10:20 75 170/71 05/19/17 10:19 75 170/71 05/19/17 09:00 170/71 Height (Feet): 5 Height (Inches): 0.00 Weight (Pounds): 166 Objective General Appearance: no apparent distress, alert EENT: PERRL/EOMI, normal ENT inspection Neck: supple, muscle spasm, pain on motion Cardiovascular: regular rhythm, regularly irregular Respiratory/Chest: lungs clear, normal breath sounds Abdomen: non tender, soft Extremities: non-tender Edema: trace edema Neurologic: alert, responsive Skin: warm/dry DICK RODRIGUEZ May 20, 2017 08:27
[2017-05-20] MEDS: Lisinopril 20mg tab ORAL SCH (08:39)
[2017-05-20] MEDS: Metoprolol Tartrate 50mg tab ORAL SCH (08:40)
[2017-05-20] MEDS: Docusate 100mg cap ORAL SCH (08:41)
[2017-05-20] MEDS: Imdur 30mg tab ORAL SCH (08:41)
[2017-05-20] MEDS: Levemir Flexpen SUBQ SCH (08:46)
[2017-05-20] MEDS: HydrALAZINE 25mg tab ORAL SCH ×2 (09:00→14:12)
--- NOTE | 2017-05-20 12:20 | General Progress Note ---
Assessment/Plan Status: stable Status Narrative on HD tolerating well. Assessment/Plan status; Acute respiratory failure- likely CHF Renal failure, acute on Chronic Diabetic Nephropathy HTN Anemia: low B12- and low Iron Plan: dialysed 05/18 and again now- Hydralazine added to BP meds OK to DC on current meds if OP dialysis is arranged Subjective ROS Limited/Unobtainable: No Constitutional: Reports: malaise Allergies: Coded Allergies: No Known Allergies (Unverified , 05/12/17) Objective Last 24 Hour Vital Signs Date Time Temp Pulse Resp B/P (MAP) Pulse Ox O2 Delivery O2 Flow Rate FiO2 05/20/17 11:58 97.9 72 20 149/85 96 Nasal Cannula 2.0 05/20/17 09:20 98.2 71 20 173/81 97 Room Air 05/20/17 09:20 Room Air 05/20/17 09:00 173/81 05/20/17 08:54 98.1 74 20 172/78 97 Nasal Cannula 2.0 05/20/17 08:41 172/78 05/20/17 08:40 74 172/78 05/20/17 08:39 172/78 05/20/17 08:39 74 172/78 05/20/17 08:00 73 05/20/17 04:00 98.4 70 20 160/62 97 Room Air 05/20/17 02:38 70 05/20/17 00:29 168/62 05/20/17 00:04 77 05/19/17 23:46 178/77 05/19/17 23:15 98.0 80 20 178/77 97 Nasal Cannula 2.0 05/19/17 20:51 80 188/77 05/19/17 20:50 80 188/77 05/19/17 20:28 98.1 110 19 180/80 93 Room Air 05/19/17 20:27 80 05/19/17 19:55 191/75 05/19/17 19:41 Nasal Cannula 2.0 28 05/19/17 19:41 95 Nasal Cannula 2.0 28 05/19/17 18:00 148/76 05/19/17 16:00 72 05/19/17 15:34 98.4 75 20 148/76 96 Nasal Cannula 2.0 Current Medications Medications (Trade) Dose Ordered Sig/Toya Route PRN Reason Start Time Stop Time Status Last Admin Dose Admin Acetaminophen (Tylenol) 650 mg Q4H PRN ORAL Mild Pain/Temp > 100.5 05/15/17 01:54 06/11/17 01:53 05/16/17 02:07 Acetaminophen/ Hydrocodone Bitart ([place] 5/325) 1 tab Q4H PRN ORAL Mild Breakthrough Pain 05/19/17 18:15 05/24/17 18:14 Atorvastatin Calcium (Lipitor) 40 mg BEDTIME ORAL 05/16/17 21:00 06/15/17 20:59 05/19/17 20:51 Clonidine HCl (Catapres) 0.1 mg Q4H PRN ORAL bp over syst 160 05/15/17 05:00 06/11/17 04:59 05/19/17 23:46 Dextrose (Dextrose 50%) STAT PRN IV Hypoglycemia 05/17/17 13:45 06/16/17 13:44 Docusate Sodium (Colace) 100 mg TWICE A DAY ORAL 05/17/17 18:00 06/16/17 17:59 05/19/17 18:00 Epoetin Panchito (Procrit (for non ESRD use)) 10,000 units MON-THU-THU SUBQ 05/15/17 21:00 06/12/17 20:59 05/18/17 21:25 Folic Acid (Folate) 1 mg DAILY ORAL 05/17/17 09:00 06/16/17 08:59 05/20/17 08:40 Gabapentin (Neurontin) 300 mg QHS ORAL 05/18/17 21:00 06/17/17 20:59 05/19/17 20:51 Hydralazine HCl (Apresoline) 25 mg Q8HR ORAL 05/20/17 09:00 06/19/17 08:59 Insulin Aspart (NovoLOG) BEFORE MEALS AND HS SUBQ 05/17/17 22:00 06/16/17 21:59 05/20/17 12:04 Insulin Aspart (NovoLOG) 10 units NOVOTIAC SUBQ 05/18/17 06:30 06/17/17 06:29 05/20/17 06:42 Insulin Detemir (Levemir) 15 units EVERY 12 HOURS SUBQ 05/17/17 21:00 06/16/17 20:59 05/20/17 08:46 Isosorbide Mononitrate (Imdur) 90 mg DAILY ORAL 05/15/17 09:00 06/12/17 20:59 05/20/17 08:41 Levothyroxine Sodium (Synthroid) 25 mcg DAILY@0630 ORAL 05/15/17 06:30 06/12/17 06:29 05/20/17 06:44 Levothyroxine Sodium (Synthroid) 112 mcg DAILY@0630 ORAL 05/15/17 06:30 06/12/17 06:29 05/20/17 06:44 Lisinopril (Prinivil) 20 mg BID ORAL 05/18/17 18:00 06/17/17 17:59 05/20/17 08:39 Metoprolol Tartrate (Lopressor) 50 mg Q12HR ORAL 05/15/17 21:00 06/14/17 20:59 05/20/17 08:40 Nifedipine (Procardia XL) 60 mg Q12HR ORAL 05/15/17 09:00 06/13/17 20:59 05/20/17 08:39 Ondansetron HCl (Zofran) 4 mg Q6H PRN IVP Nausea & Vomiting 05/18/17 13:30 06/17/17 13:29 05/18/17 22:59 Pantoprazole (Protonix) 40 mg DAILY ORAL 05/20/17 09:00 06/19/17 08:59 05/20/17 08:40 Sennosides (Senokot) 8.6 mg DAILY ORAL 05/18/17 09:00 06/17/17 08:59 05/19/17 10:19 Height (Feet): 5 Height (Inches): 0.00 Weight (Pounds): 166 General Appearance: no apparent distress Objective no other changes VOLODYMYR DOUGLAS May 20, 2017 12:20
--- NOTE | 2017-05-20 12:27 | General Progress Note ---
Assessment/Plan Problem List: (1) Anemia ICD Codes: D64.9 - Anemia, unspecified SNOMED: 928071064 (2) Renal failure ICD Codes: N19 - Unspecified kidney failure SNOMED: 29122986 (3) Pneumonia ICD Codes: J18.9 - Pneumonia, unspecified organism SNOMED: 766521049 (4) Acute exacerbation of CHF (congestive heart failure) ICD Codes: I50.9 - Heart failure, unspecified SNOMED: 85832959 (5) UTI (urinary tract infection) ICD Codes: N39.0 - Urinary tract infection, site not specified SNOMED: 35451232 (6) Respiratory failure with hypoxia ICD Codes: J96.91 - Respiratory failure, unspecified with hypoxia SNOMED: 45244155014972181 Status: progressing Assessment/Plan chf esrd on hd afebrile vitals stable htn bp is improving gave dc order to snf today see dc summary for details Subjective ROS Limited/Unobtainable: Yes Constitutional: Reports: no symptoms Allergies: Coded Allergies: No Known Allergies (Unverified , 05/12/17) Objective Last 24 Hour Vital Signs Date Time Temp Pulse Resp B/P (MAP) Pulse Ox O2 Delivery O2 Flow Rate FiO2 05/20/17 11:58 97.9 72 20 149/85 96 Nasal Cannula 2.0 05/20/17 09:20 98.2 71 20 173/81 97 Room Air 05/20/17 09:20 Room Air 05/20/17 09:00 173/81 05/20/17 08:54 98.1 74 20 172/78 97 Nasal Cannula 2.0 05/20/17 08:41 172/78 05/20/17 08:40 74 172/78 05/20/17 08:39 172/78 05/20/17 08:39 74 172/78 05/20/17 08:00 73 05/20/17 04:00 98.4 70 20 160/62 97 Room Air 05/20/17 02:38 70 05/20/17 00:29 168/62 05/20/17 00:04 77 05/19/17 23:46 178/77 05/19/17 23:15 98.0 80 20 178/77 97 Nasal Cannula 2.0 05/19/17 20:51 80 188/77 05/19/17 20:50 80 188/77 05/19/17 20:28 98.1 110 19 180/80 93 Room Air 05/19/17 20:27 80 05/19/17 19:55 191/75 05/19/17 19:41 Nasal Cannula 2.0 28 05/19/17 19:41 95 Nasal Cannula 2.0 28 05/19/17 18:00 148/76 05/19/17 16:00 72 05/19/17 15:34 98.4 75 20 148/76 96 Nasal Cannula 2.0 Height (Feet): 5 Height (Inches): 0.00 Weight (Pounds): 166 Neck: supple Cardiovascular: normal rate Respiratory/Chest: lungs clear Abdomen: soft Makenna Daniel MD May 20, 2017 12:27
--- NOTE | 2017-05-20 13:53 | Pulmonology Progress Note ---
Assessment/Plan Assessment/Plan 1. Pulmonary edema and pleural effusions. 2. Respiratory failure. 3. Renal failure. 4. Hypertension with hypertensive heart disease. 5. Diabetes. 6. Hyperlipidemia. 7. Hypothyroidism. breathing well bipap prn only- not needed at present permacath and HD per renal disc w RN keep negative pulm stable monitor oxygen needs impression, plan, and exam edited and reviewed in detail care discussed with RN Subjective Allergies: Coded Allergies: No Known Allergies (Unverified , 05/12/17) Subjective coverage for Tirm[place] stable care noted on oxygen no distress Objective Last 24 Hour Vital Signs Date Time Temp Pulse Resp B/P (MAP) Pulse Ox O2 Delivery O2 Flow Rate FiO2 05/20/17 12:53 Room Air 05/20/17 12:51 98.0 73 18 136/74 Room Air 05/20/17 11:58 97.9 72 20 149/85 96 Nasal Cannula 2.0 05/20/17 09:20 98.2 71 20 173/81 97 Room Air 05/20/17 09:20 Room Air 05/20/17 09:00 173/81 05/20/17 08:54 98.1 74 20 172/78 97 Nasal Cannula 2.0 05/20/17 08:41 172/78 05/20/17 08:40 74 172/78 05/20/17 08:39 172/78 05/20/17 08:39 74 172/78 05/20/17 08:00 73 05/20/17 04:00 98.4 70 20 160/62 97 Room Air 05/20/17 02:38 70 05/20/17 00:29 168/62 05/20/17 00:04 77 05/19/17 23:46 178/77 05/19/17 23:15 98.0 80 20 178/77 97 Nasal Cannula 2.0 05/19/17 20:51 80 188/77 05/19/17 20:50 80 188/77 05/19/17 20:28 98.1 110 19 180/80 93 Room Air 05/19/17 20:27 80 05/19/17 19:55 191/75 05/19/17 19:41 Nasal Cannula 2.0 28 05/19/17 19:41 95 Nasal Cannula 2.0 28 05/19/17 18:00 148/76 05/19/17 16:00 72 10/17/17 15:34 98.4 75 20 148/76 96 Nasal Cannula 2.0 Intake and Output 05/20/17 05/21/17 19:00 07:00 Output Total 2500 ml Balance -2500 ml Hemodialysis UF 2500 ml Objective WDWN NAD clear breath sounds bilaterally without rhonchi or wheeze [id number] without MRG NABS nontender no HSM no CCE nonfocal Current Medications Medications (Trade) Dose Ordered Sig/Toya Route PRN Reason Start Time Stop Time Status Last Admin Dose Admin Acetaminophen (Tylenol) 650 mg Q4H PRN ORAL Mild Pain/Temp > 100.5 05/15/17 01:54 06/11/17 01:53 05/16/17 02:07 Acetaminophen/ Hydrocodone Bitart ([place] 5/325) 1 tab Q4H PRN ORAL Mild Breakthrough Pain 05/19/17 18:15 05/24/17 18:14 Atorvastatin Calcium (Lipitor) 40 mg BEDTIME ORAL 05/16/17 21:00 06/15/17 20:59 05/19/17 20:51 Clonidine HCl (Catapres) 0.1 mg Q4H PRN ORAL bp over syst 160 05/15/17 05:00 06/11/17 04:59 05/19/17 23:46 Dextrose (Dextrose 50%) STAT PRN IV Hypoglycemia 05/17/17 13:45 06/16/17 13:44 Docusate Sodium (Colace) 100 mg TWICE A DAY ORAL 05/17/17 18:00 06/16/17 17:59 05/19/17 18:00 Epoetin Panchito (Procrit (for non ESRD use)) 10,000 units MON-WED-THU SUBQ 05/15/17 21:00 06/12/17 20:59 05/18/17 21:25 Folic Acid (Folate) 1 mg DAILY ORAL 05/17/17 09:00 06/16/17 08:59 05/20/17 08:40 Gabapentin (Neurontin) 300 mg QHS ORAL 05/18/17 21:00 06/17/17 20:59 05/19/17 20:51 Hydralazine HCl (Apresoline) 25 mg Q8HR ORAL 05/20/17 09:00 06/19/17 08:59 Insulin Aspart (NovoLOG) BEFORE MEALS AND HS SUBQ 05/17/17 22:00 06/16/17 21:59 05/20/17 12:04 Insulin Aspart (NovoLOG) 10 units NOVOTIAC SUBQ 05/18/17 06:30 06/17/17 06:29 05/20/17 06:42 Insulin Detemir (Levemir) 15 units EVERY 12 HOURS SUBQ 05/17/17 21:00 06/16/17 20:59 05/20/17 08:46 Isosorbide Mononitrate (Imdur) 90 mg DAILY ORAL 05/15/17 09:00 06/12/17 20:59 05/20/17 08:41 Levothyroxine Sodium (Synthroid) 25 mcg DAILY@0630 ORAL 05/15/17 06:30 06/12/17 06:29 05/20/17 06:44 Levothyroxine Sodium (Synthroid) 112 mcg DAILY@0630 ORAL 05/15/17 06:30 06/12/17 06:29 05/20/17 06:44 Lisinopril (Prinivil) 20 mg BID ORAL 05/18/17 18:00 06/17/17 17:59 05/20/17 08:39 Metoprolol Tartrate (Lopressor) 50 mg Q12HR ORAL 05/15/17 21:00 06/14/17 20:59 05/20/17 08:40 Nifedipine (Procardia XL) 60 mg Q12HR ORAL 05/15/17 09:00 06/13/17 20:59 05/20/17 08:39 Ondansetron HCl (Zofran) 4 mg Q6H PRN IVP Nausea & Vomiting 05/18/17 13:30 06/17/17 13:29 05/18/17 22:59 Pantoprazole (Protonix) 40 mg DAILY ORAL 05/20/17 09:00 06/19/17 08:59 05/20/17 08:40 Sennosides (Senokot) 8.6 mg DAILY ORAL 05/18/17 09:00 06/17/17 08:59 05/19/17 10:19 SHELBY GARCIA May 20, 2017 13:53
--- NOTE | 2017-05-20 21:11 | General Progress Note ---
Assessment/Plan Assessment/Plan # Anemia of iron deficiency - low ferritin, has received iv iron --> continue to watch counts # Anemia of kidney disease - s/p venofer as well as epogen, agree will improve and mobilize iron stores # Anemia of b12 deficiency - s/p b12 im sq doses # Acute respiratory failure- likely CHF # Renal failure, acute on Chronic # Diabetic Nephropathy # HTN Subjective Constitutional: Reports: no symptoms HEENT: Reports: no symptoms Cardiovascular: Reports: no symptoms Respiratory: Reports: no symptoms Gastrointestinal/Abdominal: Reports: no symptoms Genitourinary: Reports: no symptoms Neurologic/Psychiatric: Reports: no symptoms Endocrine: Reports: no symptoms Hematologic/Lymphatic: Reports: no symptoms Allergies: Coded Allergies: No Known Allergies (Unverified , 05/12/17) Subjective NAD Objective Last 24 Hour Vital Signs Date Time Temp Pulse Resp B/P (MAP) Pulse Ox O2 Delivery O2 Flow Rate FiO2 05/20/17 14:12 153/65 05/20/17 14:12 153/65 05/20/17 12:53 Room Air 05/20/17 12:51 98.0 73 18 136/74 Room Air 05/20/17 11:58 97.9 72 20 149/85 96 Nasal Cannula 2.0 05/20/17 09:20 98.2 71 20 173/81 97 Room Air 05/20/17 09:20 Room Air 05/20/17 09:00 173/81 05/20/17 08:54 98.1 74 20 172/78 97 Nasal Cannula 2.0 05/20/17 08:41 172/78 05/20/17 08:40 74 172/78 05/20/17 08:39 172/78 05/20/17 08:39 74 172/78 05/20/17 08:00 73 05/20/17 04:00 98.4 70 20 160/62 97 Room Air 05/20/17 02:38 70 05/20/17 00:29 168/62 05/20/17 00:04 77 05/19/17 23:46 178/77 05/19/17 23:15 98.0 80 20 178/77 97 Nasal Cannula 2.0 Intake and Output 05/20/17 05/21/17 19:00 07:00 Intake Total 240 ml Output Total 2500 ml Balance -2260 ml Intake Oral 240 ml Hemodialysis UF 2500 ml # Voids 1 Height (Feet): 5 Height (Inches): 0.00 Weight (Pounds): 166 General Appearance: no apparent distress EENT: normal ENT inspection Neck: normal alignment Cardiovascular: normal peripheral pulses Pelvis: normal external exam Edema: trace edema 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
--- NOTE | 2017-05-21 00:10 | Cardiology Progress Note ---
Assessment/Plan Assessment/Plan LATE ENTRY CARDIOLOGY PROGRESS NOTE DATE &TIME OF ENCOUNTER: 05/20/17 08:55 1. Dyspnea likely due to hypervolemia associated with ESRD, normal LV systolic function with diastolic data consistent with normal intra-cardiac filling pressure, although there is element of abnormal LV relaxation due to hypertension. 2. HTN emergency with end-organ damage, optimize clonidine, beta-blockers, calcium- channel blockers, and metolazone, on HD. 3. Small pericardial effusion nguyễn to uremia, on HD. 4. ESRD Subjective Subjective Sinus rhythm at 71. Denies CP or SOB. Objective Last 24 Hour Vital Signs Date Time Temp Pulse Resp B/P (MAP) Pulse Ox O2 Delivery O2 Flow Rate FiO2 05/20/17 14:12 153/65 05/20/17 14:12 153/65 05/20/17 12:53 Room Air 05/20/17 12:51 98.0 73 18 136/74 Room Air 05/20/17 11:58 97.9 72 20 149/85 96 Nasal Cannula 2.0 05/20/17 09:20 98.2 71 20 173/81 97 Room Air 05/20/17 09:20 Room Air 05/20/17 09:00 173/81 05/20/17 08:54 98.1 74 20 172/78 97 Nasal Cannula 2.0 05/20/17 08:41 172/78 05/20/17 08:40 74 172/78 05/20/17 08:39 172/78 05/20/17 08:39 74 172/78 05/20/17 08:00 73 05/20/17 04:00 98.4 70 20 160/62 97 Room Air 05/20/17 02:38 70 05/20/17 00:29 168/62 2D Echo: LVEF 55%, small pericardial effusion, grade I LVDD, RVSP 32 mmHg Objective HEENT: Atraumatic and normocephalic. Pupils are equal, round, and reactive to light and accommodation. Extraocular muscles are intact. NECK: JVP is elevated about 10 to 15 cm. No carotid bruit. Carotid upstrokes 2+ bilaterally. CARDIOVASCULAR: Normal S1, S2. Regular rate and rhythm. There is a 2/6 mid systolic murmur at the left sternal border. There is no pericardial rub. PMI is at 4th intercostal space in the midclavicular line. LUNGS: Bibasilar crackles, left chest Permacath in place. ABDOMEN: Soft, nontender, and nondistended. No hepatosplenomegaly. Positive bowel sounds. EXTREMITIES: No edema, clubbing or cyanosis. NATI VOGEL May 21, 2017 00:10
--- NOTE | 2017-05-22 15:37 | Discharge Summary ---
Discharge Summary Hospital Course Date of Admission May 12, 2017 at 10:22 Date of Discharge May 20, 2017 at 14:30 Admitting Diagnosis CHF EXCERBATION HPI Carolina Vasquez is a 67 year old female who was admitted on May 12, 2017 at 10:22 for Congestive Heart Failure Exacerbation Hospital Course [id number] Discharge Discharge Disposition Patient was discharged to SNF/Subacute Facility(03) Discharge Diagnoses: Alissa Montez NP May 22, 2017 15:37
--- NOTE | 2017-05-22 23:45 | Discharge Summary 2 SIG ---
DATE OF ADMISSION: 05/12/2017 DATE OF DISCHARGE: 05/20/2017 CONSULTANTS: 1. Francis Falk M.D. 2. El De M.D. 3. Zev Alfonso M.D. 4. Carl Daniels M.D. 5. Phong Gusman M.D. 6. Tod Vogel M.D. 7. Phong Joyce M.D. 8. Anel Porras M.D. BRIEF HOSPITAL COURSE: The patient is a 67-year-old female with medical history of hypertension, diabetes mellitus, and CHF, presented to ED complaining of shortness of breath for two days. Per EMS, the patient was hypoxemic with 84% oxygen saturation on room air, which improved with nonrebreather mask. Shortness of breath was gradual in onset and occurred both on rest and on exertion, worsened with lying flat. It was associated with bilateral lower extremity edema. She stated she is compliant with her medications and has been taking Lasix 40 mg daily. On evaluation at ED, she was given Lasix and was placed on BiPAP. Blood pressure remained high and was given nitroprusside drip. Hemoglobin was 7.8 and hematocrit was 24. BUN was 60, creatinine was 3.5, and proBNP was 35,000. She was admitted to ICU and was continued on BiPAP. She was followed by faculty member. She was eventually tapered off BIPAP and was saturating well on nasal cannula. Her blood pressure was elevated. She was followed by Dr. Alfonso. Nitro drip was discontinued and was given cocktail of clonidine, metoprolol, nifedipine, and Imdur. Metolazone was added. Echocardiogram revealed normal left ventricular systolic function with diastolic data consistent with normal intracardiac filling pressure, although there is element of abnormal LV relaxation due to hypertension. Creatinine was elevated from admission. A 24-hour urine creatinine clearance was 15. Renal function continued to decline. A transjugular tunneled dialysis catheter was inserted on 05/18/2017 and was started on hemodialysis. Renal ultrasound showed bilateral renal echogenicity suggesting medical renal disease. Negative for hydronephrosis. She was anemic. Anemia workup showed iron deficiency. She received total of two units packed RBC blood transfusion and was given Venofer as well as Epogen. Vitamin B12 was deficient. She was given B12 IM. She was initially started by Infectious Diseases specialist on cefepime and clindamycin for possible bilateral pneumonia complicated by pleural effusion. Blood culture did not isolate any growth. Antibiotics were discontinued. Bilateral pleural effusion improved with diuresis. Urine culture showed contaminants. Cefepime was likewise discontinued. She complained of pain on the neck. Soft tissue neck x-ray showed no acute process. Cervical x-ray was limited due to soft tissue attenuation with moderate spondylosis. The patient was eventually discharged to [facility]. Outpatient dialysis was arranged with [facility]. FINAL DIAGNOSES: 1. Acute respiratory failure secondary to acute congestive heart failure exacerbation, resolved. 2. Acute exacerbation of congestive heart failure, diastolic. 3. Acute on chronic renal failure. 4. Urinary tract infection. 5. Hypertensive emergency with end-organ damage. 6. End-stage renal disease, on hemodialysis. 7. Anemia of iron deficiency. 8. Anemia of kidney disease. 9. Anemia of B12 deficiency. 10. Acute anemia requiring blood transfusion. 11. Diabetes with diabetic nephropathy. 12. Small pericardial effusion due to uremia. 13. Hyperlipidemia. 14. Hypothyroidism. 15. Cervicalgia with cervical spondylosis. DISPOSITION: The patient was discharged to [facility] with outpatient hemodialysis. Makenna Daniel M.D. I have been assigned to dictate discharge summary on this account and I was not involved in the patient's management. Alsisa Montez N.P. DR: Natacha JOB#: [id number] CC: EDGAR
--- NOTE | 2017-05-25 14:01 | Cardiology Report ---
APPROVED REPORT EKG Measurement Heart [id number] Normal sinus rhythm Nonspecific T wave abnormality Prolonged QT Abnormal ECG
== END 2017-05-20 14:30 | DRG 291 ==
LOC: EDBD 09:41 → EMR 10:20 → ICU 10:22 → EDBEDREQ 12:01 → 2E 05-15 01:50
PROC: 5A09357 Assistance with Respiratory Ventilation, Less than 24 Consecutive Hours, Continuous Positive Airway Pressure (ICD-10-PCS; 2017-05-12)
PROC: 30233N1 Transfusion of Nonautologous Red Blood Cells into Peripheral Vein, Percutaneous Approach (ICD-10-PCS; principal; 2017-05-14)
PROC: 02H633Z Insertion of Infusion Device into Right Atrium, Percutaneous Approach (ICD-10-PCS; 2017-05-18)
PROC: 0JH63XZ Insertion of Tunneled Vascular Access Device into Chest Subcutaneous Tissue and Fascia, Percutaneous Approach (ICD-10-PCS; 2017-05-18)
PROC: 5A1D70Z Performance of Urinary Filtration, Intermittent, Less than 6 Hours Per Day (ICD-10-PCS; 2017-05-20)
DX: I13.0 Hypertensive heart and chronic kidney disease with heart failure and stage 1 through stage 4 chronic kidney disease, or unspecified chronic kidney disease (principal); J96.01 Acute respiratory failure with hypoxia; N17.9 Acute kidney failure, unspecified; J18.9 Pneumonia, unspecified organism; E11.22 Type 2 diabetes mellitus with diabetic chronic kidney disease; N18.6 End stage renal disease; I31.3 Pericardial effusion (noninflammatory); D51.9 Vitamin B12 deficiency anemia, unspecified; I50.33 Acute on chronic diastolic (congestive) heart failure; N39.0 Urinary tract infection, site not specified; I16.1 Hypertensive emergency; E78.5 Hyperlipidemia, unspecified; D50.9 Iron deficiency anemia, unspecified; D63.1 Anemia in chronic kidney disease; E03.9 Hypothyroidism, unspecified; M47.892 Other spondylosis, cervical region
CPT/HCPCS: 36415; 36600; 70360; 71010; 72052; 76000; 76775; 80048; 80053; 80061; 80076; 81001; 81050; 82550; 82553; 82575; 82607; 82728; 82746; 82803; 82962; 82977; 83036; 83540; 83550; 83735; 83880; 84100; 84156; 84300; 84443; 84484; 84550; 85007; 85025; 85060; 85610; 85730; 86140; 86706; 86707; 86803; 86850; 86900; 86901; 86920; 87040; 87081; 87086; 93005; 93306; 93970; 94664; 94760; 97803; 99285; J1815; J2405; S0077; S5561

== ENCOUNTER 2017-06-08 17:21 | Inpatient (IN) | payer MEDICARE, MEDICAID ==
[~2017-06-08] VITALS: Ht 160 cm; Wt 77.1 kg
[~2017-06-08 17:21] MED LIST: FUROSEMIDE40 MG/5 ML ORAL; HYDRALAZINE HCL25 M2 PO; ISOSORBIDE MONO60 M1 PO; LASIX20 M1 ORAL; LIPITOR80 MG ORAL; NEURONTIN300 MG ORAL; NORMODYNE300 MG ORAL; SYNTHROID137 MCG ORAL
[2017-06-08 17:28] VITALS: BP 161/71
[2017-06-08] MEDS ORDERED: FOLIC ACID1 MG ORAL (17:35)
[2017-06-08] MEDS ORDERED: [UNRECOGNIZED DRUG - OTHER] (17:35)
[2017-06-08] MEDS ORDERED: ATORVASTATIN CA40 MG ORAL (17:35)
[2017-06-08] MEDS ORDERED: DOCUSATE SODIU100 MG ORAL (17:35)
[2017-06-08] MEDS ORDERED: LEVEMIR100 UNIT/1 SUBQ (17:42)
[2017-06-08] MEDS ORDERED: ISOSORBIDE MON120 M1 PO (17:42)
[2017-06-08] MEDS ORDERED: LISINOPRIL20 MG ORAL ×3 (17:42→21:00)
[2017-06-08] MEDS ORDERED: LANSOPRAZOLE30 MG ORAL (17:42)
[2017-06-08] MEDS ORDERED: LEVOTHYROXINE50 MCG ORAL (17:42)
[2017-06-08] MEDS ORDERED: NORCO 5-325 TA1 EAC1 ORAL ×2 (17:42→21:00)
[2017-06-08] MEDS ORDERED: Morphine Sulfate 4mg/ml Inj IVP ONE (17:45)
[2017-06-08 17:53] LABS: BASOPHILS % (AUTO) 1.5 % (0.0-2.0); EOSINOPHILS % (AUTO) 3.4 % (0.0-3.0); LYMPHOCYTES % (AUTO) 24.8 % (20.0-45.0); MEAN CORPUSCULAR HEMOGLOBIN 29.1 PG (27.0-31.0); MEAN CORPUSCULAR HGB CONC 32.2 G/DL (32.0-36.0); MEAN CORPUSCULAR VOLUME 90 FL (80-99); MEAN PLATELET VOLUME 5.9 FL (6.5-10.1); MONOCYTES % (AUTO) 9.2 % (1.0-10.0); NEUTROPHILS % (AUTO) 61.2 % (45.0-75.0); PLATELET COUNT 289 K/UL (150-450); RED CELL DISTRIBUTION WIDTH 12.5 % (11.6-14.8); WHITE BLOOD COUNT 3.7 K/UL (4.8-10.8)
--- NOTE | 2017-06-08 17:56 | Emergency Room Report ---
History of Present Illness General Chief Complaint: Chest Pain Source: Patient Present Illness HPI 67-year-old female presents ED complaining of chest pain. Patient was at dialysis today and right after dialysis the chest pain started. Patient was given nitroglycerin and states that helps somewhat. States she still has chest pain. That out of 10, pressure, nonradiating. Denies shortness of breath. Denies fevers chills. Denies cough. No other aggravating or leading factors. Denies any other associated symptoms Allergies: Coded Allergies: No Known Allergies (Unverified , 05/12/17) Patient History Past Medical History: HTN, CHF, asthma, renal disease, dialysis Past Surgical History: none Pertinent Family History: none Social History: Denies: smoking, alcohol use, drug use Now: No Immunizations: UTD Reviewed Nursing Documentation: PMH: Agreed, PSxH: Agreed Nursing Documentation-PMH Hx Cardiac Problems: Yes - CHF; Anemia Hx Hypertension: Yes Hx Asthma: Yes Hx Diabetes: Yes - Hypothyroidism Hx Cancer: No Hx Gastrointestinal Problems: No Hx Dialysis: Yes - M-W-F Dialyzed today 06/08/17 Hx Neurological Problems: No Review of Systems All Other Systems: negative except mentioned in HPI Physical Exam Vital Signs Date Time Temp Pulse Resp B/P (MAP) Pulse Ox O2 Delivery O2 Flow Rate FiO2 06/08/17 17:18 98.1 113 18 175/80 96 Room Air Sp02 EP Interpretation: reviewed, normal General Appearance: no apparent distress, alert, GCS 15, non-toxic Head: normocephalic, atraumatic Eyes: bilateral eye normal inspection, bilateral eye PERRL ENT: hearing grossly normal, normal pharynx, no angioedema, normal voice Neck: full range of motion, supple/symm/no masses Respiratory: chest non-tender, lungs clear, normal breath sounds, speaking full sentences Cardiovascular #1: regular rate, rhythm, no edema Cardiovascular #2: 2+ carotid (R), 2+ carotid (L), 2+ radial (R), 2+ radial (L) , 2+ dorsalis pedis (R), 2+ dorsalis pedis (L) Gastrointestinal: normal bowel sounds, non tender, soft, non-distended, no guarding, no rebound Rectal: deferred Genitourinary: normal inspection, no CVA tenderness Musculoskeletal: back normal, gait/station normal, normal range of motion, non- tender Neurologic: alert, oriented x3, responsive, motor strength/tone normal, sensory intact, speech normal Psychiatric: judgement/insight normal, memory normal, mood/affect normal, no suicidal/homicidal ideation Reflexes: 3+ bicep (R), 3+ bicep (L), 3+ tricep (R), 3+ tricep (L), 3+ knee (R) , 3+ knee (L) Skin: normal color, no rash, warm/dry, well hydrated Lymphatic: no adenopathy Medical Decision Making Diagnostic Impression: Primary Impression: ACS (acute coronary syndrome) Additional Impression: ESRD (end stage renal disease) on dialysis ER Course Hospital Course 67-year-old female presents ED complaining of chest pain, after dialysis Differential diagnoses include: FL/unstable angina, contusion, muscle strain, PTX, rib fracture Clinical course Patient placed on stretcher. on monitoring specialist. After initial history and physical I ordered labs, EKG, chest x-ray, morphine labs reviewed- no leukocytosis, hb/hct stable, BUN/Cr elevated, K ok, Trop 0.032 , BNP elevated EKG - NSR, no acute ischemic changes interpreted by me Chest x-ray- cardiomegaly, permacath in place given asa. Case discussed with Dr. Daniel and he agreed to accept the patient to his service for further care and support I. I feel this is a highly complex case requiring extensive working including EKG/Rhythm strip, Xray/CT/US, Blood/urine lab work, repeat exams while in ED, and administration of strong opiates/narcotics for pain control, admission to hospital or close patient follow up. Diagnosis - ACSm, ESRD on diaylsis admitted to telemetry in serious condition Labs Test 06/08/17 17:30 White Blood Count 3.7 K/UL (4.8-10.8) Red Blood Count 3.70 M/UL (4.20-5.40) Hemoglobin 10.8 G/DL (12.0-16.0) Hematocrit 33.5 % (37.0-47.0) Mean Corpuscular Volume 90 FL (80-99) Mean Corpuscular Hemoglobin 29.1 PG (27.0-31.0) Mean Corpuscular Hemoglobin Concent 32.2 G/DL (32.0-36.0) Red Cell Distribution Width 12.5 % (11.6-14.8) Platelet Count 289 K/UL (150-450) Mean Platelet Volume 5.9 FL (6.5-10.1) Neutrophils (%) (Auto) 61.2 % (45.0-75.0) Lymphocytes (%) (Auto) 24.8 % (20.0-45.0) Monocytes (%) (Auto) 9.2 % (1.0-10.0) Eosinophils (%) (Auto) 3.4 % (0.0-3.0) Basophils (%) (Auto) 1.5 % (0.0-2.0) Sodium Level 141 MMOL/L (136-145) Potassium Level 3.2 MMOL/L (3.5-5.1) Chloride Level 99 MMOL/L (98-107) Carbon Dioxide Level 36 MMOL/L (21-32) Anion Gap 6 mmol/L (5-15) Blood Urea Nitrogen 15 mg/dL (7-18) Creatinine 1.8 MG/DL (0.55-1.30) Estimat Glomerular Filtration Rate 28.0 mL/min (>60) Glucose Level 121 MG/DL (74-106) Calcium Level 8.7 MG/DL (8.5-10.1) Total Bilirubin 0.3 MG/DL (0.2-1.0) Aspartate Amino Transf (AST/SGOT) 19 U/L (15-37) Alanine Aminotransferase (ALT/SGPT) 15 U/L (12-78) Alkaline Phosphatase 140 U/L (46-116) Total Creatine Kinase 55 U/L (26-308) Creatine Kinase MB 1.7 NG/ML (0.0-3.6) Creatine Kinase MB Relative Index 3.0 Troponin I 0.032 ng/mL (0.000-0.056) Pro-B-Type Natriuretic Peptide 47071 pg/mL (0-125) Total Protein 7.3 G/DL (6.4-8.2) Albumin 2.9 G/DL (3.4-5.0) Globulin 4.4 g/dL Albumin/Globulin Ratio 0.7 (1.0-2.7) EKG Diagnostic Results Rate: normal Rhythm: NSR ST Segments: no acute changes Rhythm Strip Diag. Results EP Interpretation: yes Rhythm: NSR, no PVC's, no ectopy Last Vital Signs Date Time Temp Pulse Resp B/P (MAP) Pulse Ox O2 Delivery O2 Flow Rate FiO2 06/08/17 17:28 72 16 Room Air 06/08/17 17:28 98.1 161/71 98 Status: improved Disposition: ADMITTED INPATIENT Condition: Serious Referrals: Makenna Daniel MD (PCP) RONALDO REBOLLEDO M.D. Jun 08, 2017 17:56
[2017-06-08 18:15] LABS: ALANINE AMINOTRANSFERASE 15 U/L (12-78); ALBUMIN/GLOBULIN RATIO 0.7 (1.0-2.7); ANION GAP 6 mmol/L (5-15); ASPARTATE AMINO TRANSFERASE 19 U/L (15-37); CALCIUM 8.7 MG/DL (8.5-10.1); CARBON DIOXIDE 36 MMOL/L (21-32); CHLORIDE 99 MMOL/L (98-107); CREATININE 1.8 MG/DL (0.55-1.30); POTASSIUM 3.2 MMOL/L (3.5-5.1); SODIUM 141 MMOL/L (136-145); TOTAL PROTEIN 7.3 G/DL (6.4-8.2)
[2017-06-08 18:26] LABS: CKMB 1.7 NG/ML (0.0-3.6)
[2017-06-08 18:59] VITALS: BP 160/60
[2017-06-08 19:30] VITALS: BP 166/61
[2017-06-08] MEDS ORDERED: ACETAMINOPHEN325 M1 ORAL (21:00)
[2017-06-08] MEDS ORDERED: NEPHRO-VITE RX1 EAC1 PO (21:00)
[2017-06-08] MEDS ORDERED: GABAPENTIN300 MG ORAL (21:00)
[2017-06-08] MEDS ORDERED: ZOFRAN4 M3 ORAL (21:00)
[2017-06-08] MEDS ORDERED: METOPROLOL TART50 M1 ORAL (21:00)
[2017-06-08] MEDS ORDERED: HUMULIN R100 UNIT/1 SUBQ (21:00)
[2017-06-08] MEDS ORDERED: ADALAT CC90 MG ORAL (21:00)
[2017-06-08] MEDS ORDERED: ISOSORBIDE MONO60 M1 PO (21:00)
[2017-06-08] MEDS ORDERED: SENNA8.6 M2 PO (21:00)
[2017-06-08] MEDS ORDERED: Norco 5mg/325mg tab ORAL PRN (22:45)
[2017-06-08] MEDS ORDERED: Sennosides 8.6mg ORAL PRN (22:45)
[2017-06-09] MEDS: Docusate 100mg cap ORAL SCH ×4 (01:21→17:24)
[2017-06-09] MEDS: Lisinopril 20mg tab ORAL SCH ×3 (01:22→17:24)
[2017-06-09] MEDS: Metoprolol Tartrate 50mg tab ORAL SCH ×2 (01:23→08:33)
[2017-06-09 04:39] VITALS: BP 198/80
[2017-06-09] MEDS: NovoLOG Insulin Flexpen SUBQ SCH ×4 (06:13→20:36)
[2017-06-09 08:00] VITALS: BP 194/73
[2017-06-09 08:07] LABS: BASOPHILS % (AUTO) 1.4 % (0.0-2.0); EOSINOPHILS % (AUTO) 3.4 % (0.0-3.0); LYMPHOCYTES % (AUTO) 23.9 % (20.0-45.0); MEAN CORPUSCULAR HEMOGLOBIN 30.1 PG (27.0-31.0); MEAN CORPUSCULAR HGB CONC 33.5 G/DL (32.0-36.0); MEAN CORPUSCULAR VOLUME 90 FL (80-99); MEAN PLATELET VOLUME 6.4 FL (6.5-10.1); MONOCYTES % (AUTO) 8.9 % (1.0-10.0); NEUTROPHILS % (AUTO) 62.4 % (45.0-75.0); PLATELET COUNT 247 K/UL (150-450); RED BLOOD COUNT 3.48 M/UL (4.20-5.40); RED CELL DISTRIBUTION WIDTH 12.9 % (11.6-14.8); WHITE BLOOD COUNT 4.2 K/UL (4.8-10.8)
[2017-06-09] MEDS: Imdur 30mg tab ORAL SCH (08:33)
[2017-06-09] MEDS: Nephrovite tab (Rena-Vite) ORAL SCH (08:34)
[2017-06-09] MEDS: Levemir Flexpen SUBQ SCH ×2 (09:00→17:28)
[2017-06-09 09:20] VITALS: BP 157/76
--- NOTE | 2017-06-09 10:32 | Consultation ---
Consult Note Consult Note patient under my care for her dialysis related management 67-year-old female presents ED complaining of chest pain. Patient was at dialysis today and right after dialysis the chest pain started. Patient was given nitroglycerin and states that helps somewhat. States she still has chest pain. That out of 10, pressure, nonradiating. Denies shortness of breath. Denies fevers chills. Denies cough. No other aggravating or leading factors. Denies any other associated symptoms Past Medical History: HTN, CHF, asthma, renal disease, dialysis Hx Cardiac Problems: Yes - CHF; Anemia Hx Hypertension: Yes Hx Asthma: Yes Hx Diabetes: Yes - Hypothyroidism Hx Cancer: No Hx Gastrointestinal Problems: No Hx Dialysis: Yes - M-W-F Dialyzed today 06/08/17 Assessment/Plan status: admitted with ACS h/o Acute respiratory failure- likely CHF Renal failure, acute on Chronic - s/p CrCl calculated 15 Diabetic Nephropathy HTN h/o Anemia: low B12- and low Iron Plan: dialysed as needed adjust BP meds- per orders VOLODYMYR DOUGLAS Jun 09, 2017 10:32
--- NOTE | 2017-06-09 10:55 | Diagnostic Imaging Report ---
Indication: Chest pain Comparison: 05/15/17 A single view chest radiograph was obtained. Findings: Interstitial edema has improved. Heart is enlarged. There is right permacath in good position. Bones are osteopenic. Impression: Permacath in good position.
[2017-06-09] MEDS: Aspirin Baby 81mg ORAL SCH (11:00)
[2017-06-09 11:47] VITALS: BP 152/69
[2017-06-09] MEDS ORDERED: HydrALAZINE 25mg tab ORAL SCH (14:00)
[2017-06-09 15:57] VITALS: BP 160/77
--- NOTE | 2017-06-09 16:38 | Cardiology Report ---
APPROVED REPORT EKG Measurement Heart [id number] MS [id number] Normal sinus rhythm Left ventricular hypertrophy with repolarization abnormality Prolonged QT Abnormal ECG
--- NOTE | 2017-06-09 18:39 | Cardiology Progress Note ---
Assessment/Plan Assessment/Plan The patient is seen and examined, full consult note will be dictated. Objective Last 24 Hour Vital Signs Date Time Temp Pulse Resp B/P (MAP) Pulse Ox O2 Delivery O2 Flow Rate FiO2 06/09/17 17:25 67 160/77 06/09/17 17:24 160/77 06/09/17 15:57 97.9 67 18 160/77 95 Room Air 06/09/17 15:35 65 06/09/17 14:46 152/69 06/09/17 12:03 59 06/09/17 11:47 97.6 62 18 152/69 94 Room Air 06/09/17 10:00 62 157/76 06/09/17 09:20 62 157/76 06/09/17 09:00 62 157/76 06/09/17 08:34 66 194/73 06/09/17 08:34 194/73 06/09/17 08:33 66 194/73 06/09/17 08:33 194/73 06/09/17 08:00 98.4 66 20 194/73 Room Air 95 06/09/17 07:52 66 06/09/17 04:39 97.9 64 20 198/80 Room Air 06/09/17 04:34 205/72 06/09/17 04:00 64 06/09/17 01:23 68 201/79 06/09/17 01:22 201/79 06/09/17 00:00 97.7 20 96 Nasal Cannula 06/08/17 19:56 98.6 62 17 166/61 97 Room Air 06/08/17 19:30 98.6 62 17 166/61 97 Room Air 06/08/17 18:59 98.6 63 16 160/60 94 Room Air Intake and Output 06/09/17 06/10/17 19:00 07:00 Intake Total 240 ml Balance 240 ml Intake Oral 240 ml # Voids 2 Laboratory Tests Test 06/08/17 20:50 06/09/17 07:00 Hepatitis A IgM Antibody Pending Hepatitis B Surface Antigen Pending Hepatitis B Core IgM Antibody Pending Hepatitis C Antibody Pending HIV (1&2) Antibody Rapid Negative (NEGATIVE) White Blood Count 4.2 K/UL (4.8-10.8) L Red Blood Count 3.48 M/UL (4.20-5.40) L Hemoglobin 10.5 G/DL (12.0-16.0) L Hematocrit 31.2 % (37.0-47.0) L Mean Corpuscular Volume 90 FL (80-99) Mean Corpuscular Hemoglobin 30.1 PG (27.0-31.0) Mean Corpuscular Hemoglobin Concent 33.5 G/DL (32.0-36.0) Red Cell Distribution Width 12.9 % (11.6-14.8) Platelet Count 247 K/UL (150-450) Mean Platelet Volume 6.4 FL (6.5-10.1) L Neutrophils (%) (Auto) 62.4 % (45.0-75.0) Lymphocytes (%) (Auto) 23.9 % (20.0-45.0) Monocytes (%) (Auto) 8.9 % (1.0-10.0) Eosinophils (%) (Auto) 3.4 % (0.0-3.0) H Basophils (%) (Auto) 1.4 % (0.0-2.0) Iron Level Pending Unsaturated Iron Binding Pending Ferritin Pending Pro-B-Type Natriuretic Peptide 44723 pg/mL (0-125) H Folate Pending NATI VOGEL Jun 09, 2017 18:39
[2017-06-09 19:13] LABS: FERRITIN 232 NG/ML (8-388)
[2017-06-09 19:44] LABS: FOLIC ACID > 20.0 NG/ML (3.1-17.5); IRON 100 ug/dL (50-175); TOTAL IRON BINDING CAPACITY 193 ug/dL (250-450)
[2017-06-09 20:00] VITALS: BP 160/74
--- NOTE | 2017-06-09 21:00 | Consultation ---
DATE OF CONSULTATION: 06/09/2017 CARDIOLOGY CONSULTATION CONSULTING PHYSICIAN: Zev Alfonso M.D. REFERRING PHYSICIAN: Makenna Daniel M.D. REASON FOR CONSULTATION: Management of chest pain. HISTORY OF PRESENT ILLNESS: The patient is a very pleasant 67-year-old female, who presents to the emergency department for evaluation and management of chest pain. The patient apparently was on dialysis on 06/08/2017. Right after dialysis, she started to have chest pain, which was described as pressure like, nonradiating, not associated with shortness of breath. She was given nitroglycerin, which did not completely relieve the pain. She was brought into the emergency department of [facility] for further evaluation and management. On initial evaluation in the emergency department, the blood pressure was 175/80 mmHg, heart rate was 113, she was saturating at 96% on room air. She was admitted to the telemetry for further evaluation and management of the above condition. The patient was admitted to this facility in May 2017 where she had 2D echocardiography, which had revealed hypertensive heart disease with normal left ventricular systolic function, LVEF of about 55% to 60%, small pericardial effusion, and grade 1 pseudo normal LV physiology suggestive of moderately elevated left atrial pressure and right ventricular systolic pressure of about 32 mmHg. Her blood pressure is usually controlled with lisinopril, metoprolol, and nifedipine ER. On admission, the patient was on metolazone and clonidine as well. At the bedside, the patient does not have any complaints of chest pain. PAST MEDICAL HISTORY: 1. Hypertension. 2. History of asthma. 3. History of end-stage renal disease. 4. History of congestive heart failure. 5. History of diabetes mellitus. 6. History of hypothyroidism. PAST SURGICAL HISTORY: AV shunt. ALLERGIES: No known drug allergies. MEDICATIONS: List of medication including aspirin 325 mg q.4 h. p.r.n. pain, atorvastatin 40 mg p.o. daily at bedtime, Colace 100 mg p.o. daily, folic acid 1 mg p.o. daily, gabapentin 300 mg p.o. daily at bedtime, hydrocodone and acetaminophen 5/325 mg one tablet q.4 h. p.r.n., insulin Levemir 15 units subcutaneously q.12 h., sliding scale insulin regular, isosorbide 180 mg p.o. daily, lansoprazole 30 mg p.o. daily, levothyroxine 50 mcg p.o. daily, lisinopril 10 mg p.o. twice daily, metoprolol 50 mg p.o. q.12 h., nifedipine ER 90 mg p.o. daily, Zofran 4 mg q.6 h. p.r.n., senna 8.6 mg p.o. daily, and Nephro-Blaze one tablet p.o. daily. SOCIAL HISTORY: She denies any use of tobacco, alcohol, or illicit drug use. FAMILY HISTORY: No premature coronary artery disease in first-degree relative. REVIEW OF SYSTEMS: HEENT: Denies any headache, diplopia, or blurred vision. CONSTITUTIONAL: Denies any fever, chills, night sweats, or weight loss. CARDIOVASCULAR: She just complains of chest pain after dialysis, currently chest pain free. She denies any PND, orthopnea, or leg swelling. PULMONARY: Denies any cough, hemoptysis, or wheezing. GASTROINTESTINAL: Denies any nausea, vomiting, diarrhea, constipation, abdominal pain, or GI bleed. GENITOURINARY: Denies any hematuria, dysuria, or incontinence. She is on hemodialysis three days a week. NEUROLOGIC: Denies any motor dysfunction, sensory deficit, or altered speech. PHYSICAL EXAMINATION: VITAL SIGNS: Blood pressure is 175/80, pulse of 113, respirations 18, O2 saturation 96% on room air, and temperature 98.1 degrees Fahrenheit. GENERAL: The patient is a very pleasant 67-year-old female, in no apparent respiratory distress, alert and oriented x4. HEENT: Atraumatic and normocephalic. Anicteric. Pupils are equal, round, and reactive to light and accommodation. Extraocular muscles intact. NECK: JVP is less than 5 cm. No carotid bruits. Carotid upstrokes 2+ bilaterally. CARDIOVASCULAR: Normal S1 and S2. Regular rate and rhythm. No murmurs, gallops, or rubs. PMI is at 4th intercostal space in the midclavicular line. LUNGS: Clear to auscultation bilaterally. ABDOMEN: Soft, nontender, and nondistended. No hepatosplenomegaly. Positive bowel sounds. EXTREMITIES: No evidence of edema, clubbing, or cyanosis. LABORATORY FINDINGS: WBC is 3.7, hemoglobin 10.8, hematocrit 33.5, and platelet count 289,000. Chemistry shows sodium of 141, potassium 3.2, chloride 99, bicarbonate 36, BUN 15, creatinine 1.8, glucose 121, and calcium 8.7. Troponin I is 0.032. ProBNP was 21,877. DIAGNOSTIC DATA: A 12-lead electrocardiogram shows sinus rhythm, heart rate of 75 with LVH and T-wave abnormalities due to repolarization abnormality with LVH, and QT prolongation with QT interval of 511. Chest x-ray shows PermCath in good position, interstitial edema, and cardiomegaly. ASSESSMENT AND PLAN: The patient is a very unfortunate 67-year-old female, seen in Cardiology consultation at the request of Dr. Daniel. 1. Chest pain, most likely atypical, however due to the risk factors for coronary artery disease including diabetes mellitus, end-stage renal disease, and hypertension, I would like to rule out obstructive coronary artery disease. I would like to obtain a Lexiscan Cardiolite study in the morning. The patient requires to be off nifedipine and metoprolol prior to this test. She would also require to be off caffeine for about 24 hours. Further therapeutic and diagnostic decision will be based on the results of the above studies. 2. Hypertensive heart disease with normal left ventricular systolic function, which was determined in May 2017. 3. History of accelerated hypertension. This may account for the patient's chest pain as well. 4. History of diabetes mellitus. I would suggest combination of aspirin and statins in this patient. 5. History of congestive heart failure is quite common, very high beta-natriuretic peptide. The patient on hemodialysis. Last 2D echocardiography in May 2017 had shown presence of pseudo normal left ventricular physiology consistent with moderately elevated left atrial pressure. 6. The patient will require to be continued on dialysis. It appears on admission that the metolazone was also added to the patient's regimen. 7. We will discuss with Nephrology in regards with adding metolazone to the regimen. I would like to thank, Dr. Daniel, for the courtesy of this consultation. Zev Alfonso M.D. DR: Tatiana JOB#: [id number] CC:
[2017-06-09] MEDS: HydrALAZINE 25mg tab ORAL SCH (23:07)
[2017-06-10] VITALS (7 sets, daily range): BP systolic 101–163; BP diastolic 47–75
[2017-06-10] MEDS: NovoLOG Insulin Flexpen SUBQ SCH ×4 (06:30→21:21)
[2017-06-10] MEDS: HydrALAZINE 25mg tab ORAL SCH ×3 (06:43→22:55)
--- NOTE | 2017-06-10 07:32 | History and Physical Report ---
DATE OF ADMISSION: 06/08/2017 REASON FOR ADMISSION: Rule out acute coronary syndrome. HISTORY OF PRESENT ILLNESS: The patient is complaining of chest pain. Denies nausea, vomiting, or diarrhea. Denies fever or chills. Denies shortness of breath. Denies cough. The patient, however, is a poor historian. PAST MEDICAL HISTORY: Hyperlipidemia, , constipation, neuropathy, NIDDM, glaucoma, hypothyroidism, hypertension, and end-stage renal disease. PAST SURGICAL HISTORY: Surgery related to renal disease. MEDICATIONS: Folic acid, Colace, Lipitor, Tylenol, insulin, Prevacid, Levoxyl, lisinopril, metoprolol, and Senokot. SOCIAL HISTORY: The patient denies history of smoking, alcohol, or illicit drugs. Comes from a nursing facility. FAMILY HISTORY: Does have a history of diabetes and hypertension. REVIEW OF SYSTEMS: HEENT: Denies headaches. RESPIRATORY: Denies shortness of breath. Denies cough. CARDIOVASCULAR: Chest pain. Regular rate. GASTROINTESTINAL: Denies nausea, vomiting, or diarrhea. EXTREMITIES: Denies pain in the extremities. CENTRAL NERVOUS SYSTEM: No change in vision or speech pattern. PHYSICAL EXAMINATION: VITAL SIGNS: Temperature is 97.9 degrees, pulse is 67, and blood pressure 116/77. HEENT: PERRLA. NECK: Supple. No lymphadenopathy. CHEST: Clear to auscultation. GI: Soft, nontender, and nondistended. No organomegaly. EXTREMITIES: A 1+ edema. Reflexes are equal on both sides. Able to move extremities. LABORATORY AND DIAGNOSTIC DATA: WBC of 3.7, hemoglobin 10.8, and platelets of 289,000. Sodium 141, potassium 3.2, BUN of 15, creatinine 1.8, and glucose of 121. Troponin of 0.032. EKG, no significant changes. ASSESSMENT AND PLAN: Chest pain, rule out acute coronary syndrome, troponin, low potassium. For those reasons, I have asked Dr. Alfonso and Dr. Falk to see the patient for the above-mentioned diagnoses and treatment. Makenna Daniel M.D. DR: Conchita JOB#: [id number] CC:
--- NOTE | 2017-06-10 07:32 | Consultation ---
DATE OF CONSULTATION: 06/09/2017 HEMATOLOGY/ONCOLOGY CONSULTATION REQUESTING PHYSICIAN: Makenna Daniel M.D. REASON FOR CONSULTATION: Evaluation of leukopenia and anemia. IDENTIFYING DATA: Dear Dr. Daniel, The patient is a pleasant 67-year-old female with past medical history significant for diabetes mellitus; CHF; CKD, on dialysis; hepatitis; hyperlipidemia; history of anemia of iron deficiency; end-stage renal disease; anemia due to B12 deficiency, at this time presents back to [facility]. She was about a month ago complaining of chest pain, dialysis was ongoing at that time and complained of chest pain, given nitroglycerin, somewhat helped. Denies any shortness of breath. Denies any fever or chills. No other symptoms. Hematology service consulted given blood dyscrasias. PAST MEDICAL HISTORY: As noted above. PAST SURGICAL HISTORY: None noted. ALLERGIES: No known drug allergies. SOCIAL HISTORY: No alcohol, tobacco or illicit drug use. FAMILY HISTORY: Noncontributory. REVIEW OF SYSTEMS: CONSTITUTIONAL: No fever, chills, or night sweats. SKIN: No rashes, bumps, or itching. HEENT: No headache, hearing or vision changes. BREASTS: No lumps, pain, or discharge. PULMONARY: No cough, sputum, or shortness of breath. GASTROINTESTINAL: No nausea, vomiting, or diarrhea. GENITOURINARY: No dysuria, frequency, or urgency. MUSCULOSKELETAL: No joint swelling, muscle pain, or trauma. PHYSICAL EXAMINATION: GENERAL: The patient is in no distress. VITAL SIGNS: Reviewed. PULMONARY: Decreased breath sounds. CARDIOVASCULAR: Regular rate. No S3 or S4. GASTROINTESTINAL: Abdomen is soft, nontender, and nondistended. EXTREMITIES: There is 1+ edema. LABORATORY AND DIAGNOSTIC DATA: Labs reviewed. WBC 4.7, hemoglobin 10.9, hematocrit of 34, and platelet count of 289,000. ASSESSMENT AND PLAN: 1. Leukopenia, likely secondary to potential infection. We will need to obtain ultrasound of the abdomen. Hepatitis panel is negative. INR is within normal limits. Medications reviewed. 2. Anemia secondary to end-stage renal disease. 3. Anemia due to iron deficiency. Ferritin of 33. 4. Protein-calorie malnutrition. . 5. Weight loss. 6. Diabetic neuropathy. 7. Hypertension. 8. Renal failure, on dialysis in the past, managed by Nephrology Service. 9. ACS. I appreciate consultation. Carl Daniels M.D. DR: ROLO JOB#: [id number] CC:
[2017-06-10 07:59] LABS: BASOPHILS % (AUTO) 1.5 % (0.0-2.0); EOSINOPHILS % (AUTO) 4.7 % (0.0-3.0); LYMPHOCYTES % (AUTO) 23.3 % (20.0-45.0); MEAN CORPUSCULAR HEMOGLOBIN 30.1 PG (27.0-31.0); MEAN CORPUSCULAR HGB CONC 34.9 G/DL (32.0-36.0); MEAN CORPUSCULAR VOLUME 86 FL (80-99); MEAN PLATELET VOLUME 6.5 FL (6.5-10.1); MONOCYTES % (AUTO) 10.9 % (1.0-10.0); NEUTROPHILS % (AUTO) 59.8 % (45.0-75.0); PLATELET COUNT 263 K/UL (150-450); RED BLOOD COUNT 3.67 M/UL (4.20-5.40); RED CELL DISTRIBUTION WIDTH 12.9 % (11.6-14.8); WHITE BLOOD COUNT 4.1 K/UL (4.8-10.8)
[2017-06-10 08:13] LABS: ALANINE AMINOTRANSFERASE 14 U/L (12-78); ALBUMIN/GLOBULIN RATIO 0.6 (1.0-2.7); ANION GAP 6 mmol/L (5-15); ASPARTATE AMINO TRANSFERASE 17 U/L (15-37); CALCIUM 8.8 MG/DL (8.5-10.1); CARBON DIOXIDE 32 MMOL/L (21-32); CHLORIDE 103 MMOL/L (98-107); CREATININE 3.5 MG/DL (0.55-1.30); POTASSIUM 4.2 MMOL/L (3.5-5.1); SODIUM 140 MMOL/L (136-145); TOTAL PROTEIN 6.8 G/DL (6.4-8.2)
[2017-06-10 08:23] LABS: CHOLESTEROL 174 MG/DL (< 200); CHOLESTEROL/HDL RATIO 3.4 (3.3-4.4); CRP QUANT 0.8 mg/dL (0.00-0.90); PHOSPHORUS 5.7 MG/DL (2.5-4.9); THYROID STIMULATING HORMONE 2.737 uiU/mL (0.360-3.740); URIC ACID 4.9 MG/DL (2.6-7.2)
[2017-06-10] MEDS: Lisinopril 20mg tab ORAL SCH ×2 (08:31→18:00)
[2017-06-10] MEDS: Aspirin Baby 81mg ORAL SCH (08:31)
[2017-06-10] MEDS: Nephrovite tab (Rena-Vite) ORAL SCH (08:31)
[2017-06-10] MEDS: Docusate 100mg cap ORAL SCH ×3 (08:32→18:13)
[2017-06-10] MEDS: Levemir Flexpen SUBQ SCH ×2 (08:38→18:15)
[2017-06-10 08:57] LABS: HEMOGLOBIN A1C 7.1 % (4.3-6.0)
[2017-06-10] MEDS: Imdur 30mg tab ORAL SCH (09:10)
[2017-06-10] MEDS ORDERED: Lexiscan 0.4mg/5ml syringe IV ONE (14:30)
--- NOTE | 2017-06-10 15:21 | Cardiology Report ---
APPROVED REPORT EXAM: Two-dimensional and M-mode echocardiogram with Doppler and color Doppler. INDICATION Congestive Heart Failure M-Mode DIMENSIONS IVSd2.4 (0.7-1.1cm)Left Atrium (MM)4.0 (1.6-4.0cm) LVDd4.5 (3.5-5.6cm)Aortic Root4.0 (2.0-3.7cm) PWd1.6 (0.7-1.1cm)Aortic Cusp Exc.1.2 (1.5-2.0cm) LVDs3.7 (2.5-4.0cm) PWs2.0 cm Normal left ventricular chamber size. Mild global left ventricular hypokinesis. Left ventricular ejection fraction estimated to be 40-45 %. Moderate left ventricular hypertrophy. Small posterior pericardial effusion. Mild bi-atrial enlargement. Right ventricular chamber size is within normal limits. Focal aortic valve sclerosis with adequate cusp excursion. Thickened mitral valve leaflets with normal excursion. Mitral annulus and aortic root calcification. Normal pulmonic valve structure. Normal tricuspid valve structure. IVC at normal size with physiologic collapse. A color flow and spectral Doppler study was performed and revealed: Mild aortic regurgitation. Trace mitral regurgitation. Mitral diastolic velocities suggest reduced left ventricular relaxation c/w mild LV diastolic dysfunction (Grade I ) Mild tricuspid regurgitation. Tricuspid systolic velocities suggests peak right ventricular systolic pressure of 36 mmHg, consistent with borderline mild pulmonary hypertension.
--- NOTE | 2017-06-10 15:28 | General Progress Note ---
Assessment/Plan Problem List: (1) ACS (acute coronary syndrome) ICD Codes: I24.9 - Acute ischemic heart disease, unspecified SNOMED: 627702622 (2) ESRD (end stage renal disease) on dialysis ICD Codes: N18.6 - End stage renal disease; Z99.2 - Dependence on renal dialysis SNOMED: 499261242 Status: progressing Assessment/Plan r/o acs neg trop afebrile esrd .rx per dr stearns afebrile Subjective ROS Limited/Unobtainable: Yes Allergies: Coded Allergies: No Known Allergies (Unverified , 05/12/17) Objective Last 24 Hour Vital Signs Date Time Temp Pulse Resp B/P (MAP) Pulse Ox O2 Delivery O2 Flow Rate FiO2 06/10/17 13:23 148/67 06/10/17 13:22 148/67 06/10/17 12:00 69 06/10/17 11:45 97.7 67 18 148/67 96 Room Air 06/10/17 10:00 64 06/10/17 09:10 150/75 06/10/17 08:31 150/75 06/10/17 08:03 97.7 65 18 150/75 96 Room Air 06/10/17 06:43 163/67 06/10/17 06:43 163/67 06/10/17 04:00 96.8 63 20 163/67 93 Room Air 06/10/17 04:00 65 06/10/17 00:00 66 06/10/17 00:00 96.9 70 20 134/63 95 Room Air 06/09/17 23:07 139/57 06/09/17 20:04 160/74 06/09/17 20:00 97.9 68 19 160/74 93 Room Air 06/09/17 20:00 70 06/09/17 17:25 67 160/77 06/09/17 17:24 160/77 06/09/17 15:57 97.9 67 18 160/77 95 Room Air 06/09/17 15:35 65 Laboratory Tests 06/10/17 07:15: White Blood Count 4.1L, Red Blood Count 3.67L, Hemoglobin 11.0L, Hematocrit 31.6L, Mean Corpuscular Volume 86, Mean Corpuscular Hemoglobin 30.1, Mean Corpuscular Hemoglobin Concent 34.9, Red Cell Distribution Width 12.9, Platelet Count 263, Mean Platelet Volume 6.5, Neutrophils (%) (Auto) 59.8, Lymphocytes (% ) (Auto) 23.3, Monocytes (%) (Auto) 10.9H, Eosinophils (%) (Auto) 4.7H, Basophils (%) (Auto) 1.5, Sodium Level 140, Potassium Level 4.2, Chloride Level 103, Carbon Dioxide Level 32, Anion Gap 6, Blood Urea Nitrogen 35H, Creatinine 3.5H, Estimat Glomerular Filtration Rate 13.0, Glucose Level 118H, Hemoglobin A1c 7.1H, Uric Acid 4.9, Calcium Level 8.8, Phosphorus Level 5.7H, Total Bilirubin 0.3, Gamma Glutamyl Transpeptidase 94H, Aspartate Amino Transf (AST/ SGOT) 17, Alanine Aminotransferase (ALT/SGPT) 14, Alkaline Phosphatase 117H, C- Reactive Protein, Quantitative 0.8, Pro-B-Type Natriuretic Peptide 74047F, Total Protein 6.8, Albumin 2.6L, Globulin 4.2, Albumin/Globulin Ratio 0.6L, Triglycerides Level 253H, Cholesterol Level 174, LDL Cholesterol 71, HDL Cholesterol 51, Cholesterol/HDL Ratio 3.4, Thyroid Stimulating Hormone (TSH) 2.737 Height (Feet): 5 Height (Inches): 3.00 Weight (Pounds): 170 Neck: supple Cardiovascular: normal rate Respiratory/Chest: lungs clear Makenna Daniel MD Jun 10, 2017 15:28
--- NOTE | 2017-06-10 15:40 | Nephrology Progress Note ---
Assessment/Plan Problem List: (1) ESRD (end stage renal disease) on dialysis (2) ACS (acute coronary syndrome) (3) Hypertensive kidney disease (4) Diabetic nephropathy with proteinuria Assessment status: admitted with ACS h/o Acute respiratory failure- likely CHF Renal failure, acute on Chronic - s/p CrCl calculated 15 Diabetic Nephropathy HTN h/o Anemia: low B12- and low Iron Plan Plan: dialysed as needed, in am adjust BP meds- per orders Subjective ROS Limited/Unobtainable: No Constitutional: Reports: malaise Objective Objective Last 24 Hour Vital Signs Date Time Temp Pulse Resp B/P (MAP) Pulse Ox O2 Delivery O2 Flow Rate FiO2 06/10/17 13:23 148/67 06/10/17 13:22 148/67 06/10/17 12:00 69 06/10/17 11:45 97.7 67 18 148/67 96 Room Air 06/10/17 10:00 64 06/10/17 09:10 150/75 06/10/17 08:31 150/75 06/10/17 08:03 97.7 65 18 150/75 96 Room Air 06/10/17 06:43 163/67 06/10/17 06:43 163/67 06/10/17 04:00 96.8 63 20 163/67 93 Room Air 06/10/17 04:00 65 06/10/17 00:00 66 06/10/17 00:00 96.9 70 20 134/63 95 Room Air 06/09/17 23:07 139/57 06/09/17 20:04 160/74 06/09/17 20:00 97.9 68 19 160/74 93 Room Air 06/09/17 20:00 70 06/09/17 17:25 67 160/77 06/09/17 17:24 160/77 06/09/17 15:57 97.9 67 18 160/77 95 Room Air Laboratory Tests 06/10/17 07:15: White Blood Count 4.1L, Red Blood Count 3.67L, Hemoglobin 11.0L, Hematocrit 31.6L, Mean Corpuscular Volume 86, Mean Corpuscular Hemoglobin 30.1, Mean Corpuscular Hemoglobin Concent 34.9, Red Cell Distribution Width 12.9, Platelet Count 263, Mean Platelet Volume 6.5, Neutrophils (%) (Auto) 59.8, Lymphocytes (% ) (Auto) 23.3, Monocytes (%) (Auto) 10.9H, Eosinophils (%) (Auto) 4.7H, Basophils (%) (Auto) 1.5, Sodium Level 140, Potassium Level 4.2, Chloride Level 103, Carbon Dioxide Level 32, Anion Gap 6, Blood Urea Nitrogen 35H, Creatinine 3.5H, Estimat Glomerular Filtration Rate 13.0, Glucose Level 118H, Hemoglobin A1c 7.1H, Uric Acid 4.9, Calcium Level 8.8, Phosphorus Level 5.7H, Total Bilirubin 0.3, Gamma Glutamyl Transpeptidase 94H, Aspartate Amino Transf (AST/ SGOT) 17, Alanine Aminotransferase (ALT/SGPT) 14, Alkaline Phosphatase 117H, C- Reactive Protein, Quantitative 0.8, Pro-B-Type Natriuretic Peptide 18257X, Total Protein 6.8, Albumin 2.6L, Globulin 4.2, Albumin/Globulin Ratio 0.6L, Triglycerides Level 253H, Cholesterol Level 174, LDL Cholesterol 71, HDL Cholesterol 51, Cholesterol/HDL Ratio 3.4, Thyroid Stimulating Hormone (TSH) 2.737 Height (Feet): 5 Height (Inches): 3.00 Weight (Pounds): 170 General Appearance: no apparent distress Cardiovascular: regular rhythm Respiratory/Chest: decreased breath sounds Abdomen: soft Objective no other changes VOLODYMYR DOUGLAS Jun 10, 2017 15:40
--- NOTE | 2017-06-10 19:05 | Cardiology Progress Note ---
Assessment/Plan Assessment/Plan 1.Chest pain, most likely atypical, however due to the risk factors for coronary artery disease including diabetes mellitus, end-stage renal disease, and hypertension, I would like to rule out obstructive coronary artery disease. Stress test report is pending. 2. Hypertensive heart disease with normal left ventricular systolic function, which was determined in May 2017. 3. History of diabetes mellitus. I would suggest combination of aspirin and statins in this patient. 4. Acute heart failure with preserved EF, continue HD, B-blockers. Subjective Subjective Sinus rhythm at 67. Objective Last 24 Hour Vital Signs Date Time Temp Pulse Resp B/P (MAP) Pulse Ox O2 Delivery O2 Flow Rate FiO2 06/10/17 16:00 66 06/10/17 15:44 97.7 69 18 101/47 95 Room Air 06/10/17 13:23 148/67 06/10/17 13:22 148/67 06/10/17 12:00 69 06/10/17 11:45 97.7 67 18 148/67 96 Room Air 06/10/17 10:00 64 06/10/17 09:10 150/75 06/10/17 08:31 150/75 06/10/17 08:03 97.7 65 18 150/75 96 Room Air 06/10/17 06:43 163/67 06/10/17 06:43 163/67 06/10/17 04:00 96.8 63 20 163/67 93 Room Air 06/10/17 04:00 65 06/10/17 00:00 66 06/10/17 00:00 96.9 70 20 134/63 95 Room Air 06/09/17 23:07 139/57 06/09/17 20:04 160/74 06/09/17 20:00 97.9 68 19 160/74 93 Room Air 06/09/17 20:00 70 Intake and Output 06/10/17 06/11/17 19:00 07:00 Intake Total 240 ml Balance 240 ml Intake Oral 240 ml # Voids 1 2D Echo: EF 45%, Grade I LVDD,E/E' >>High LA press, Mild AR, RVSP 36, Small Per Eff Laboratory Tests Test 06/10/17 07:15 White Blood Count 4.1 K/UL (4.8-10.8) L Red Blood Count 3.67 M/UL (4.20-5.40) L Hemoglobin 11.0 G/DL (12.0-16.0) L Hematocrit 31.6 % (37.0-47.0) L Mean Corpuscular Volume 86 FL (80-99) Mean Corpuscular Hemoglobin 30.1 PG (27.0-31.0) Mean Corpuscular Hemoglobin Concent 34.9 G/DL (32.0-36.0) Red Cell Distribution Width 12.9 % (11.6-14.8) Platelet Count 263 K/UL (150-450) Mean Platelet Volume 6.5 FL (6.5-10.1) Neutrophils (%) (Auto) 59.8 % (45.0-75.0) Lymphocytes (%) (Auto) 23.3 % (20.0-45.0) Monocytes (%) (Auto) 10.9 % (1.0-10.0) H Eosinophils (%) (Auto) 4.7 % (0.0-3.0) H Basophils (%) (Auto) 1.5 % (0.0-2.0) Sodium Level 140 MMOL/L (136-145) Potassium Level 4.2 MMOL/L (3.5-5.1) Chloride Level 103 MMOL/L (98-107) Carbon Dioxide Level 32 MMOL/L (21-32) Anion Gap 6 mmol/L (5-15) Blood Urea Nitrogen 35 mg/dL (7-18) H Creatinine 3.5 MG/DL (0.55-1.30) H Estimat Glomerular Filtration Rate 13.0 mL/min (>60) Glucose Level 118 MG/DL (74-106) H Hemoglobin A1c 7.1 % (4.3-6.0) H Uric Acid 4.9 MG/DL (2.6-7.2) Calcium Level 8.8 MG/DL (8.5-10.1) Phosphorus Level 5.7 MG/DL (2.5-4.9) H Total Bilirubin 0.3 MG/DL (0.2-1.0) Gamma Glutamyl Transpeptidase 94 U/L (5-85) H Aspartate Amino Transf (AST/SGOT) 17 U/L (15-37) Alanine Aminotransferase (ALT/SGPT) 14 U/L (12-78) Alkaline Phosphatase 117 U/L (46-116) H C-Reactive Protein, Quantitative 0.8 mg/dL (0.00-0.90) Pro-B-Type Natriuretic Peptide 34676 pg/mL (0-125) H Total Protein 6.8 G/DL (6.4-8.2) Albumin 2.6 G/DL (3.4-5.0) L Globulin 4.2 g/dL Albumin/Globulin Ratio 0.6 (1.0-2.7) L Triglycerides Level 253 MG/DL (0-200) H Cholesterol Level 174 MG/DL (< 200) LDL Cholesterol 71 mg/dL (<100) HDL Cholesterol 51 MG/DL (40-60) Cholesterol/HDL Ratio 3.4 (3.3-4.4) Thyroid Stimulating Hormone (TSH) 2.737 uiU/mL (0.360-3.740) Objective HEENT: Atraumatic and normocephalic. Anicteric. Pupils are equal, round, and reactive to light and accommodation. Extraocular muscles intact. NECK: JVP is less than 5 cm. No carotid bruits. Carotid upstrokes 2+ bilaterally. CARDIOVASCULAR: Normal S1 and S2. Regular rate and rhythm. No murmurs, gallops, or rubs. PMI is at 4th intercostal space in the midclavicular line. LUNGS: Clear to auscultation bilaterally. ABDOMEN: Soft, nontender, and nondistended. No hepatosplenomegaly. Positive bowel sounds. EXTREMITIES: No evidence of edema, clubbing, or cyanosis. NATI VOGEL Jun 10, 2017 19:05
--- NOTE | 2017-06-10 23:11 | General Progress Note ---
Assessment/Plan Assessment/Plan ASSESSMENT AND PLAN: 1. Leukopenia, likely secondary to potential infection. Abdominal US pending 2. Anemia secondary to end-stage renal disease. Mild at this time 3. Protein-calorie malnutrition. 5. Diabetic neuropathy. 6. Hypertension. 7. Renal failure, on dialysis in the past, managed by Nephrology Service. 8. ACS. Subjective Constitutional: Reports: weakness Allergies: Coded Allergies: No Known Allergies (Unverified , 05/12/17) All Systems: reviewed and negative except above Objective Last 24 Hour Vital Signs Date Time Temp Pulse Resp B/P (MAP) Pulse Ox O2 Delivery O2 Flow Rate FiO2 06/10/17 22:55 143/60 06/10/17 22:54 143/60 06/10/17 22:25 70 20 143/60 95 06/10/17 20:00 98.1 70 20 132/61 97 Room Air 06/10/17 18:00 101/47 06/10/17 16:00 66 06/10/17 15:44 97.7 69 18 101/47 95 Room Air 06/10/17 13:23 148/67 06/10/17 13:22 148/67 06/10/17 12:00 69 06/10/17 11:45 97.7 67 18 148/67 96 Room Air 06/10/17 10:00 64 06/10/17 09:10 150/75 06/10/17 08:31 150/75 06/10/17 08:03 97.7 65 18 150/75 96 Room Air 06/10/17 06:43 163/67 06/10/17 06:43 163/67 06/10/17 04:00 96.8 63 20 163/67 93 Room Air 06/10/17 04:00 65 06/10/17 00:00 66 06/10/17 00:00 96.9 70 20 134/63 95 Room Air Intake and Output 06/10/17 06/11/17 19:00 07:00 Intake Total 240 ml Balance 240 ml Intake Oral 240 ml # Voids 1 Laboratory Tests 06/10/17 07:15: White Blood Count 4.1L, Red Blood Count 3.67L, Hemoglobin 11.0L, Hematocrit 31.6L, Mean Corpuscular Volume 86, Mean Corpuscular Hemoglobin 30.1, Mean Corpuscular Hemoglobin Concent 34.9, Red Cell Distribution Width 12.9, Platelet Count 263, Mean Platelet Volume 6.5, Neutrophils (%) (Auto) 59.8, Lymphocytes (% ) (Auto) 23.3, Monocytes (%) (Auto) 10.9H, Eosinophils (%) (Auto) 4.7H, Basophils (%) (Auto) 1.5, Sodium Level 140, Potassium Level 4.2, Chloride Level 103, Carbon Dioxide Level 32, Anion Gap 6, Blood Urea Nitrogen 35H, Creatinine 3.5H, Estimat Glomerular Filtration Rate 13.0, Glucose Level 118H, Hemoglobin A1c 7.1H, Uric Acid 4.9, Calcium Level 8.8, Phosphorus Level 5.7H, Total Bilirubin 0.3, Gamma Glutamyl Transpeptidase 94H, Aspartate Amino Transf (AST/ SGOT) 17, Alanine Aminotransferase (ALT/SGPT) 14, Alkaline Phosphatase 117H, C- Reactive Protein, Quantitative 0.8, Pro-B-Type Natriuretic Peptide [id number], Total Protein 6.8, Albumin 2.6L, Globulin 4.2, Albumin/Globulin Ratio 0.6L, Triglycerides Level 253H, Cholesterol Level 174, LDL Cholesterol 71, HDL Cholesterol 51, Cholesterol/HDL Ratio 3.4, Thyroid Stimulating Hormone (TSH) 2.737 Height (Feet): 5 Height (Inches): 3.00 Weight (Pounds): 170 General Appearance: no apparent distress EENT: normal ENT inspection Neck: normal alignment Cardiovascular: normal peripheral pulses Extremities: normal range of motion Carl Daniels Jun 10, 2017 23:11
[2017-06-11] VITALS: BP 145/55
[2017-06-11 04:00] VITALS: BP 187/66
[2017-06-11] MEDS: HydrALAZINE 25mg tab ORAL SCH ×3 (05:34→20:59)
[2017-06-11] MEDS: NovoLOG Insulin Flexpen SUBQ SCH ×4 (06:30→21:01)
[2017-06-11 08:00] VITALS: BP 169/59
[2017-06-11 08:39] LABS: BASOPHILS % (AUTO) 1.4 % (0.0-2.0); EOSINOPHILS % (AUTO) 3.8 % (0.0-3.0); LYMPHOCYTES % (AUTO) 24.8 % (20.0-45.0); MEAN CORPUSCULAR HEMOGLOBIN 28.5 PG (27.0-31.0); MEAN CORPUSCULAR HGB CONC 30.6 G/DL (32.0-36.0); MEAN CORPUSCULAR VOLUME 93 FL (80-99); MEAN PLATELET VOLUME 5.9 FL (6.5-10.1); MONOCYTES % (AUTO) 8.7 % (1.0-10.0); NEUTROPHILS % (AUTO) 61.3 % (45.0-75.0); PLATELET COUNT 246 K/UL (150-450); RED BLOOD COUNT 3.67 M/UL (4.20-5.40); RED CELL DISTRIBUTION WIDTH 12.9 % (11.6-14.8); WHITE BLOOD COUNT 5.1 K/UL (4.8-10.8)
[2017-06-11 08:58] LABS: ALANINE AMINOTRANSFERASE 15 U/L (12-78); ALBUMIN/GLOBULIN RATIO 0.6 (1.0-2.7); ANION GAP 10 mmol/L (5-15); ASPARTATE AMINO TRANSFERASE 32 U/L (15-37); CARBON DIOXIDE 27 MMOL/L (21-32); CHLORIDE 103 MMOL/L (98-107); CREATININE 4.2 MG/DL (0.55-1.30); GLOMERULAR FILTRATION RATE 10.5 mL/min (>60); PHOSPHORUS 6.4 MG/DL (2.5-4.9); POTASSIUM 4.3 MMOL/L (3.5-5.1); SODIUM 139 MMOL/L (136-145); TOTAL PROTEIN 7.4 G/DL (6.4-8.2); URIC ACID 6.4 MG/DL (2.6-7.2)
[2017-06-11] MEDS: Imdur 30mg tab ORAL SCH (09:00)
[2017-06-11] MEDS: Aspirin Baby 81mg ORAL SCH (09:00)
[2017-06-11] MEDS: Lisinopril 20mg tab ORAL SCH ×2 (09:00→17:11)
[2017-06-11] MEDS: Nephrovite tab (Rena-Vite) ORAL SCH (09:16)
[2017-06-11] MEDS: Docusate 100mg cap ORAL SCH ×3 (09:16→18:00)
[2017-06-11] MEDS: Levemir Flexpen SUBQ SCH ×2 (09:17→17:14)
[2017-06-11 12:00] VITALS: BP 163/66
--- NOTE | 2017-06-11 14:18 | Diagnostic Imaging Report ---
Indication: chest pain Technique: The study was conducted under the supervision of a record tabulating clerk. Adenosine infusion followed by intravenous administration of 32.2 mCi of technetium 99m Myoview was performed. Three plane SPECT imaging of the heart was then performed. A resting study was performed as part of the one-day protocol with 10.9 mCi of technetium 99m myoview injected intravenously at that time. Three plane SPECT imaging of the heart was obtained. Comparison: None Clinical data: LVEF 42% 1. Clinical response: Non ischemic 2. Electrocardiographic response: Non ischemic Findings: The myocardial perfusion scan demonstrates a hypoperfusion of the inferior wall which may be due to diaphragmatic attenuation or prior infarct. Please correlate clinically. No ischemic or reversible segments are appreciated. Impression: Apparent inferior wall hypoperfusion. Attenuation by diaphragm is possible. There may be a inferior infarct. Please correlate clinically.
--- NOTE | 2017-06-11 15:52 | General Progress Note ---
Assessment/Plan Assessment/Plan ASSESSMENT AND PLAN: 1. Leukopenia, likely secondary to potential infection. WBC count has normalized 2. Anemia secondary to end-stage renal disease. Mild at this time 3. Protein-calorie malnutrition. 5. Diabetic neuropathy. 6. Hypertension. 7. Renal failure, on dialysis in the past, managed by Nephrology Service. 8. ACS. Subjective ROS Limited/Unobtainable: Yes Allergies: Coded Allergies: No Known Allergies (Unverified , 05/12/17) Subjective HD today Objective Last 24 Hour Vital Signs Date Time Temp Pulse Resp B/P (MAP) Pulse Ox O2 Delivery O2 Flow Rate FiO2 06/11/17 12:00 55 06/11/17 12:00 97.6 58 21 163/66 98 Room Air 06/11/17 09:00 169/59 06/11/17 09:00 169/59 06/11/17 08:00 97.8 56 20 169/59 98 Room Air 06/11/17 08:00 56 06/11/17 05:34 187/66 06/11/17 05:34 187/66 06/11/17 04:00 69 06/11/17 04:00 98.1 62 20 187/66 99 Room Air 06/11/17 00:00 98.1 62 20 145/55 96 Room Air 06/11/17 00:00 73 06/10/17 22:55 143/60 06/10/17 22:54 143/60 06/10/17 22:25 70 20 143/60 95 06/10/17 20:00 62 06/10/17 20:00 98.1 70 20 132/61 97 Room Air 06/10/17 18:00 101/47 06/10/17 16:00 66 Laboratory Tests 06/11/17 07:15: White Blood Count 5.1, Red Blood Count 3.67L, Hemoglobin 10.5L, Hematocrit 34.1L , Mean Corpuscular Volume 93#, Mean Corpuscular Hemoglobin 28.5, Mean Corpuscular Hemoglobin Concent 30.6L, Red Cell Distribution Width 12.9, Platelet Count 246, Mean Platelet Volume 5.9L, Neutrophils (%) (Auto) 61.3, Lymphocytes (%) (Auto) 24.8, Monocytes (%) (Auto) 8.7, Eosinophils (%) (Auto) 3.8H, Basophils (%) (Auto) 1.4, Sodium Level 139, Potassium Level 4.3, Chloride Level 103, Carbon Dioxide Level 27, Anion Gap 10, Blood Urea Nitrogen 48H, Creatinine 4.2H, Estimat Glomerular Filtration Rate 10.5, Glucose Level 86, Uric Acid 6.4, Calcium Level 9.0, Phosphorus Level 6.4H, Total Bilirubin 0.4, Aspartate Amino Transf (AST/SGOT) 32, Alanine Aminotransferase (ALT/SGPT) 15, Alkaline Phosphatase 129H, Total Protein 7.4, Albumin 2.9L, Globulin 4.5, Albumin/Globulin Ratio 0.6L, Vitamin B12 Level 1436H Height (Feet): 5 Height (Inches): 3.00 Weight (Pounds): 170 General Appearance: WD/WN EENT: PERRL/EOMI Abdomen: no organomegaly Extremities: normal range of motion Skin: warm/dry Carl Daniels Jun 11, 2017 15:52
[2017-06-11 16:00] VITALS: BP 101/52
--- NOTE | 2017-06-11 16:04 | Nephrology Progress Note ---
Assessment/Plan Problem List: (1) ESRD (end stage renal disease) on dialysis (2) ACS (acute coronary syndrome) (3) Hypertensive kidney disease (4) Diabetic nephropathy with proteinuria Assessment status: On HD now- admitted with ACS h/o Acute respiratory failure- likely CHF Renal failure, acute on Chronic - s/p CrCl calculated 15 Diabetic Nephropathy HTN h/o Anemia: low B12- and low Iron Plan Plan: dialysis today in process adjust BP meds- increase clonidine- per orders Subjective ROS Limited/Unobtainable: No Constitutional: Reports: malaise Objective Objective Last 24 Hour Vital Signs Date Time Temp Pulse Resp B/P (MAP) Pulse Ox O2 Delivery O2 Flow Rate FiO2 06/11/17 12:00 55 06/11/17 12:00 97.6 58 21 163/66 98 Room Air 06/11/17 09:00 169/59 06/11/17 09:00 169/59 06/11/17 08:00 97.8 56 20 169/59 98 Room Air 06/11/17 08:00 56 06/11/17 05:34 187/66 06/11/17 05:34 187/66 06/11/17 04:00 69 06/11/17 04:00 98.1 62 20 187/66 99 Room Air 06/11/17 00:00 98.1 62 20 145/55 96 Room Air 06/11/17 00:00 73 06/10/17 22:55 143/60 06/10/17 22:54 143/60 06/10/17 22:25 70 20 143/60 95 06/10/17 20:00 62 06/10/17 20:00 98.1 70 20 132/61 97 Room Air 06/10/17 18:00 101/47 Laboratory Tests 06/11/17 07:15: White Blood Count 5.1, Red Blood Count 3.67L, Hemoglobin 10.5L, Hematocrit 34.1L , Mean Corpuscular Volume 93#, Mean Corpuscular Hemoglobin 28.5, Mean Corpuscular Hemoglobin Concent 30.6L, Red Cell Distribution Width 12.9, Platelet Count 246, Mean Platelet Volume 5.9L, Neutrophils (%) (Auto) 61.3, Lymphocytes (%) (Auto) 24.8, Monocytes (%) (Auto) 8.7, Eosinophils (%) (Auto) 3.8H, Basophils (%) (Auto) 1.4, Sodium Level 139, Potassium Level 4.3, Chloride Level 103, Carbon Dioxide Level 27, Anion Gap 10, Blood Urea Nitrogen 48H, Creatinine 4.2H, Estimat Glomerular Filtration Rate 10.5, Glucose Level 86, Uric Acid 6.4, Calcium Level 9.0, Phosphorus Level 6.4H, Total Bilirubin 0.4, Aspartate Amino Transf (AST/SGOT) 32, Alanine Aminotransferase (ALT/SGPT) 15, Alkaline Phosphatase 129H, Total Protein 7.4, Albumin 2.9L, Globulin 4.5, Albumin/Globulin Ratio 0.6L, Vitamin B12 Level 1436H Height (Feet): 5 Height (Inches): 3.00 Weight (Pounds): 170 General Appearance: no apparent distress Cardiovascular: normal rate Respiratory/Chest: lungs clear Abdomen: soft Objective no other changes VOLODYMYR DOUGLAS Jun 11, 2017 16:04
[2017-06-11 20:28] VITALS: BP 154/65
--- NOTE | 2017-06-11 21:22 | General Progress Note ---
Assessment/Plan Problem List: (1) ACS (acute coronary syndrome) ICD Codes: I24.9 - Acute ischemic heart disease, unspecified SNOMED: 180269006 (2) ESRD (end stage renal disease) on dialysis ICD Codes: N18.6 - End stage renal disease; Z99.2 - Dependence on renal dialysis SNOMED: 690009323 Status: stable Assessment/Plan r/o acs dc in am trop neg esrd reviewed chart and labs afebrile Subjective ROS Limited/Unobtainable: Yes Allergies: Coded Allergies: No Known Allergies (Unverified , 05/12/17) Objective Last 24 Hour Vital Signs Date Time Temp Pulse Resp B/P (MAP) Pulse Ox O2 Delivery O2 Flow Rate FiO2 06/11/17 21:00 157/78 06/11/17 20:59 157/78 06/11/17 20:28 98.1 61 18 154/65 92 Room Air 06/11/17 17:11 133/59 06/11/17 16:34 Room Air 06/11/17 16:00 97.5 67 20 101/52 98 Room Air 06/11/17 16:00 74 06/11/17 12:15 Room Air 06/11/17 12:00 55 06/11/17 12:00 97.6 58 21 163/66 98 Room Air 06/11/17 09:00 169/59 06/11/17 09:00 169/59 06/11/17 08:00 97.8 56 20 169/59 98 Room Air 06/11/17 08:00 56 06/11/17 05:34 187/66 06/11/17 05:34 187/66 06/11/17 04:00 69 06/11/17 04:00 98.1 62 20 187/66 99 Room Air 06/11/17 00:00 98.1 62 20 145/55 96 Room Air 06/11/17 00:00 73 06/10/17 22:55 143/60 06/10/17 22:54 143/60 06/10/17 22:25 70 20 143/60 95 Intake and Output 06/11/17 06/12/17 19:00 07:00 Intake Total 300 ml Output Total 1813 ml Balance -1513 ml Intake Oral 300 ml Hemodialysis UF 1813 ml Laboratory Tests 06/11/17 07:15: White Blood Count 5.1, Red Blood Count 3.67L, Hemoglobin 10.5L, Hematocrit 34.1L , Mean Corpuscular Volume 93#, Mean Corpuscular Hemoglobin 28.5, Mean Corpuscular Hemoglobin Concent 30.6L, Red Cell Distribution Width 12.9, Platelet Count 246, Mean Platelet Volume 5.9L, Neutrophils (%) (Auto) 61.3, Lymphocytes (%) (Auto) 24.8, Monocytes (%) (Auto) 8.7, Eosinophils (%) (Auto) 3.8H, Basophils (%) (Auto) 1.4, Sodium Level 139, Potassium Level 4.3, Chloride Level 103, Carbon Dioxide Level 27, Anion Gap 10, Blood Urea Nitrogen 48H, Creatinine 4.2H, Estimat Glomerular Filtration Rate 10.5, Glucose Level 86, Uric Acid 6.4, Calcium Level 9.0, Phosphorus Level 6.4H, Total Bilirubin 0.4, Aspartate Amino Transf (AST/SGOT) 32, Alanine Aminotransferase (ALT/SGPT) 15, Alkaline Phosphatase 129H, Total Protein 7.4, Albumin 2.9L, Globulin 4.5, Albumin/Globulin Ratio 0.6L, Vitamin B12 Level 1436H Height (Feet): 5 Height (Inches): 3.00 Weight (Pounds): 170 Cardiovascular: regular rhythm Makenna Daniel MD Jun 11, 2017 21:22
[2017-06-12 01:30] VITALS: BP 148/64
[2017-06-12 01:56] VITALS: BP 148/66
[2017-06-12 04:41] VITALS: BP 142/74
[2017-06-12] MEDS: NovoLOG Insulin Flexpen SUBQ SCH (06:27)
[2017-06-12] MEDS: HydrALAZINE 25mg tab ORAL SCH (06:29)
[2017-06-12 08:00] VITALS: BP 91/66
[2017-06-12] MEDS: Docusate 100mg cap ORAL SCH (10:09)
[2017-06-12] MEDS: Aspirin Baby 81mg ORAL SCH (10:09)
[2017-06-12] MEDS: Imdur 30mg tab ORAL SCH (10:09)
[2017-06-12] MEDS: Nephrovite tab (Rena-Vite) ORAL SCH (10:13)
[2017-06-12] MEDS: Lisinopril 20mg tab ORAL SCH (10:15)
[2017-06-12] MEDS: Levemir Flexpen SUBQ SCH (10:18)
[2017-06-12 12:00] VITALS: BP 127/64
--- NOTE | 2017-06-12 12:21 | Nephrology Progress Note ---
Assessment/Plan Problem List: (1) ESRD (end stage renal disease) on dialysis (2) ACS (acute coronary syndrome) (3) Hypertensive kidney disease (4) Diabetic nephropathy with proteinuria Assessment status: admitted with ACS h/o Acute respiratory failure- likely CHF Renal failure, acute on Chronic - s/p CrCl calculated 15 Diabetic Nephropathy HTN h/o Anemia: low B12- and low Iron Plan Plan: dialysis 06/11 done adjust BP meds- increase clonidine- per orders Subjective ROS Limited/Unobtainable: No Objective Objective Last 24 Hour Vital Signs Date Time Temp Pulse Resp B/P (MAP) Pulse Ox O2 Delivery O2 Flow Rate FiO2 06/12/17 10:15 152/54 06/12/17 10:09 91/66 06/12/17 08:00 97.7 56 19 9166 98 Room Air 06/12/17 06:29 157/70 06/12/17 06:28 157/70 06/12/17 04:41 98.1 68 18 142/74 99 Room Air 06/12/17 04:00 54 06/12/17 01:56 94.6 64 18 148/66 94 Room Air 06/12/17 01:30 96.4 66 18 148/64 64 Room Air 06/12/17 00:00 57 06/11/17 21:00 157/78 06/11/17 20:59 157/78 06/11/17 20:28 98.1 61 18 154/65 92 Room Air 06/11/17 20:00 72 06/11/17 17:11 133/59 06/11/17 16:34 Room Air 06/11/17 16:00 97.5 67 20 101/52 98 Room Air 06/11/17 16:00 74 Intake and Output 06/12/17 06/13/17 19:00 07:00 Output Total 600 ml Balance -600 ml Output Urine Total 600 ml Current Medications Medications (Trade) Dose Ordered Sig/Toya Route PRN Reason Start Time Stop Time Status Last Admin Dose Admin Acetaminophen (Tylenol) 650 mg Q4H PRN ORAL Mild Pain/Temp > 100.5 06/08/17 22:45 07/08/17 22:44 Acetaminophen/ Hydrocodone Bitart ([place] 5/325) 1 tab Q4H PRN ORAL Moderate Pain (Pain Scale 4-6) 06/08/17 22:45 06/15/17 22:44 Aspirin (ASA) 162 mg DAILY ORAL 06/09/17 11:00 07/09/17 10:59 06/12/17 10:09 Atorvastatin Calcium (Lipitor) 40 mg BEDTIME ORAL 06/08/17 23:23 07/08/17 23:22 06/11/17 20:58 Clonidine HCl (Catapres) 0.1 mg Q4H PRN ORAL sbp >170 mmHg 06/09/17 09:00 07/09/17 08:59 Clonidine HCl (Catapres) 0.2 mg EVERY 8 HOURS ORAL 06/11/17 22:00 07/11/17 21:59 06/12/17 06:28 Dextrose (Dextrose 50%) STAT PRN IV Hypoglycemia 06/09/17 04:15 07/09/17 04:14 Docusate Sodium (Colace) 100 mg TID ORAL 06/09/17 13:00 07/08/17 23:22 06/12/17 10:09 Gabapentin (Neurontin) 300 mg BEDTIME ORAL 06/08/17 23:24 07/08/17 23:23 06/11/17 20:58 Hydralazine HCl (Apresoline) 50 mg Q8H ORAL 06/09/17 22:00 07/09/17 21:59 06/12/17 06:29 Insulin Aspart (NovoLOG) BEFORE MEALS AND HS SUBQ 06/09/17 06:30 07/09/17 06:29 06/11/17 21:01 Insulin Detemir (Levemir) 15 units BID SUBQ 06/09/17 09:00 07/09/17 08:59 06/12/17 10:18 Isosorbide Mononitrate (Imdur) 180 mg DAILY ORAL 06/09/17 09:00 07/09/17 08:59 06/12/17 10:09 Levothyroxine Sodium (Synthroid) 150 mcg DAILY@0630 ORAL 06/10/17 06:30 07/10/17 06:29 06/12/17 06:28 Lisinopril (Prinivil) 40 mg BID ORAL 06/10/17 09:00 07/10/17 08:59 06/12/17 10:15 Ondansetron HCl (Zofran) 4 mg Q6H PRN IVP Nausea & Vomiting 06/08/17 22:45 07/08/17 22:44 Pantoprazole (Protonix) 40 mg BEFORE BREAKFAST ORAL 06/09/17 06:30 07/09/17 06:29 06/12/17 06:28 Sennosides (Senokot) 8.6 mg DAILY PRN ORAL Constipation 06/08/17 22:45 07/08/17 22:44 Vitamin B Complex/ Vit C/Folic Acid (Nephrovite) 1 tab DAILY ORAL 06/09/17 09:00 07/09/17 08:59 06/12/17 10:13 Height (Feet): 5 Height (Inches): 3.00 Weight (Pounds): 170 General Appearance: no apparent distress Objective no other changes VOLODYMYR DOUGLAS Jun 12, 2017 12:21
--- NOTE | 2017-06-12 14:11 | Diagnostic Imaging Report ---
APPROVED REPORT CPT Code: 30576 Present Symptoms Comments: R/O DVT BILATERAL: Imaging reveals a patent deep venous system bilaterally. There is no evidence of thrombus within the femoral, popliteal or tibial segments. The greater saphenous veins are also within normal limits. Doppler indicates normal spontaneous flow within these segments.
--- NOTE | 2017-06-12 16:44 | Cardiology Progress Note ---
Assessment/Plan Assessment/Plan Time of Encounter: 8:37 am 1.Chest pain, most likely atypical, non-ischemic stress test, OK to be discharged home. 2. Hypertensive heart disease with normal left ventricular systolic function. 3. History of diabetes mellitus continue aspirin and statins. 4. Acute heart failure with preserved EF, continue HD, B-blockers. Subjective Subjective Sinus bradycardia at 56. Non-ischemic stress test. Objective Last 24 Hour Vital Signs Date Time Temp Pulse Resp B/P (MAP) Pulse Ox O2 Delivery O2 Flow Rate FiO2 06/12/17 12:00 97.6 63 20 127/64 98 Room Air 06/12/17 10:15 152/54 06/12/17 10:09 91/66 06/12/17 08:00 97.7 56 19 91/66 98 Room Air 06/12/17 06:29 157/70 06/12/17 06:28 157/70 06/12/17 04:41 98.1 68 18 142/74 99 Room Air 06/12/17 04:00 54 06/12/17 01:56 94.6 64 18 148/66 94 Room Air 06/12/17 01:30 96.4 66 18 148/64 64 Room Air 06/12/17 00:00 57 06/11/17 21:00 157/78 06/11/17 20:59 157/78 06/11/17 20:28 98.1 61 18 154/65 92 Room Air 06/11/17 20:00 72 06/11/17 17:11 133/59 Intake and Output 06/12/17 06/13/17 19:00 07:00 Output Total 600 ml Balance -600 ml Output Urine Total 600 ml 2D Echo: EF 45%, Grade I LVDD,E/E' >>High LA press, Mild AR, RVSP 36, Small Per Eff Objective HEENT: Atraumatic and normocephalic. Anicteric. Pupils are equal, round, and reactive to light and accommodation. Extraocular muscles intact. NECK: JVP is less than 5 cm. No carotid bruits. Carotid upstrokes 2+ bilaterally. CARDIOVASCULAR: Normal S1 and S2. Regular rate and rhythm. No murmurs, gallops, or rubs. PMI is at 4th intercostal space in the midclavicular line. LUNGS: Clear to auscultation bilaterally. ABDOMEN: Soft, nontender, and nondistended. No hepatosplenomegaly. Positive bowel sounds. EXTREMITIES: No evidence of edema, clubbing, or cyanosis. NATI VOGEL Jun 12, 2017 16:44
--- NOTE | 2017-06-15 14:40 | Discharge Summary ---
Discharge Summary Hospital Course Date of Admission Jun 08, 2017 at 18:05 Date of Discharge Jun 12, 2017 at 13:31 Admitting Diagnosis ACS HPI Carolina Vasquez is a 67 year old female who was admitted on Jun 08, 2017 at 18:05 for Acute Coronary Syndrome Hospital Course dc summary #[id number] Discharge Medications Continued Medications: Acetaminophen* (Acetaminophen 325MG Tablet*) 325 Mg Tablet 325 MG ORAL Q4H PRN for MILD PAIN Atorvastatin Calcium* (Atorvastatin Calcium*) 40 Mg Tablet 40 MG ORAL BEDTIME, TAB Docusate Sodium* (Docusate Sodium*) 100 Mg Capsule 100 MG ORAL DAILY, CAP Folic Acid* (Folic Acid*) 1 Mg Tablet 1 MG ORAL DAILY, TAB Gabapentin* (Gabapentin*) 300 Mg Capsule 300 MG ORAL BEDTIME Hydrocodone Bit/Acetaminophen 5-325* ([place] 5-325 Tablet*) 1 Each Tablet 1 TAB ORAL Q4H PRN for MODERATE TO SEVERE PAIN Insulin Detemir (Levemir) 100 Unit/1 Ml Vial 15 SUBQ Q12HR, VIAL Insulin Regular, Human (Humulin R) 100 Unit/1 Ml Vial 0 SUBQ for SLIDING SCALE Isosorbide Mononitrate (Isosorbide Mononitrate Er) 60 Mg Tab.er.24h 180 MG PO DAILY for FOR ANGINA Lansoprazole* (Lansoprazole*) 30 Mg Capsule.dr 30 MG ORAL DAILY, CAP Levothyroxine Sodium* (Levothyroxine Sodium*) 50 Mcg Tablet 50 MCG ORAL DAILY, TAB Take in the morning on an empty stomach, at least 30 minutes before food. Lisinopril (Lisinopril*) 20 Mg Tablet 20 MG ORAL DAILY for HOLD IF SBP>110 OR PULSE<60 Lisinopril (Lisinopril*) 20 Mg Tablet 20 MG ORAL BID for HOLD IF SBP<110 OR PULSE<60 Metoprolol Tartrate* (Metoprolol Tartrate*) 50 Mg Tablet 50 MG ORAL EVERY 12 HOURS Nifedipine Er* (Adalat Cc*) 90 Mg Tablet.er 90 MG ORAL DAILY for HOLD IF BP <110 Do not chew or crush tablet Ondansetron* (Zofran*) 4 Mg Tablet 4 MG ORAL Q6H PRN for Nausea & Vomiting Sennosides (Senna) 8.6 Mg Tablet 8.6 MG PO DAILY for HOLD FOR LBM Vit B Cmplx 3/Fa/Vit C/Biotin (Nephro-Blaze Rx Tablet) 1 Each Tablet 1 EACH PO DAILY Discharge Condition Upon Discharge: stable Discharge Disposition Patient was discharged to SNF/Subacute Facility(03) Discharge Diagnoses: Discharge Instructions Discharge Instructions Special Instructions I have been assigned to complete a D/C Summary on this account. I was not involved in the patient management Kaitlin Durán NP ([place]te[place]) Jun 15, 2017 14:40
--- NOTE | 2017-06-16 05:45 | Discharge Summary 2 SIG ---
DATE OF ADMISSION: 06/08/2017 DATE OF DISCHARGE: 06/12/2017 REASON FOR ADMISSION: 67-year-old female with past medical history significant for CHF, hypertension, end-stage renal disease (on hemodialysis), asthma, and hypothyroidism, presented to emergency department complaining of chest pain. The night after dialysis, patient started to have a chest pain. She was given nitroglycerin in the facility and she felt better, however, she still continued having chest pain. Chest pain described as nonradiating, pressure type, 10/10 on a scale 1 to 10. The patient denied shortness of breath. Denied fever or chills. Denied cough. Vital signs revealed tachycardia- 113, blood pressure- 175/80. Otherwise, pulse oximetry was stable on room air. No fever. EKG revealed normal sinus rhythm. No acute ischemic changes. Chest x-ray revealed cardiomegaly and PermCath in place. Aspirin was given. The patient was admitted with chest pain, rule out acute coronary syndrome and end-stage renal disease. HOSPITAL COURSE: The patient was admitted to telemetry floor. Cardiology consult was requested along with Nephrology consult. Serial troponin were negative. EKG revealed no acute ischemic changes. The patient subsequently was ruled out for acute MA. The patient had an echocardiogram done in May 2017, which revealed preserved ejection fraction. The patient did have elevated blood pressure. Antihypertensive medication regimen was optimized. Blood pressure was managed with beta-denisa, calcium channel denisa, and FALLON inhibitor. Long-acting nitrate was added to existing regimen. The patient undergone stress test. No ischemic or reversible segments were appreciated and responses were nonischemic. Per vocational education professional, chest pain was likely atypical, since stress test was nonischemic. Carroting Machine Operator cleared the patient for discharge. Echocardiogram done on this admission , and per vocational education professional, who personally reviewed every Echo, the patient had preserved ejection fraction. The patient was continued on aspirin and statin. Lipid panel revealed stable total cholesterol, LDL, and elevated triglycerides -253. The patient was educated on low-fat diabetic diet. Blood sugar was managed with sliding scale of insulin and Levemir, to be continued at the senior living facility. Blood sugar was stable. TSH was within normal limits. Current dose of levothyroxine was continued. GI prophylaxis provided. Financial Assistance Specialist followed the patient. Hemodialysis done as per chromosomal disorders counselor. According to chromosomal disorders counselor, the patient had hypertensive kidney disease and diabetic nephropathy with proteinuria. Hemoglobin and hematocrit were closely monitored. Workup revealed anemia of chronic disease, likely renal disease. The patient with evidence of protein-calorie malnutrition as evidenced by muscle wasting. Per nutritional assessment, the patient had a moderate nutrition risk. Nepro was added to existing cardiac diabetic renal diet. Chest x-ray was negative for any acute cardiopulmonary pathology. Supplemental oxygen and pulmonary toilet were provided as needed. Venous duplex of bilateral lower extremities was negative. Patient was stable fro discharge FINAL DIAGNOSES: 1. Chest pain, likely atypical. 2. Hypertensive heart disease. 3. Diabetes mellitus. 4. Acute heart failure with preserved ejection fraction. 5. Hypertensive kidney disease. 6. Diabetic nephropathy with proteinuria. 7. End-stage renal disease, on hemodialysis. DISCHARGE INSTRUCTIONS: The patient was discharged to senior living facility. FOLLOWUP: Follow up with medical doctor at the facility. DISCHARGE MEDICATIONS: See medication reconciliation list. Makenna Daniel M.D. I have been assigned to dictate discharge summary on this account and I was not involved in the patient's management. Kaitlin FlowersMohawk Valley Psychiatric Centerkassandra N.P. DR: Errol JOB#: [id number] CC: EDGAR
[2017-07-08] MEDS ORDERED: EPOGEN10000 UNIT SUBQ (13:24)
== END 2017-06-12 13:31 | DRG 313 ==
LOC: EDBD 17:21 → EMR 17:40 → 2E 18:05 → EDBEDREQ 18:09 → 2E 06-10 22:20
PROC: 5A1D70Z Performance of Urinary Filtration, Intermittent, Less than 6 Hours Per Day (ICD-10-PCS; principal; 2017-06-11)
DX: R07.89 Other chest pain (principal); N17.9 Acute kidney failure, unspecified; E46 Unspecified protein-calorie malnutrition; E11.22 Type 2 diabetes mellitus with diabetic chronic kidney disease; N18.6 End stage renal disease; I13.11 Hypertensive heart and chronic kidney disease without heart failure, with stage 5 chronic kidney disease, or end stage renal disease; I50.9 Heart failure, unspecified; Z99.2 Dependence on renal dialysis; Z68.30 Body mass index [BMI] 30.0-30.9, adult; E78.5 Hyperlipidemia, unspecified; Z79.4 Long term (current) use of insulin; D50.9 Iron deficiency anemia, unspecified; E03.9 Hypothyroidism, unspecified
CPT/HCPCS: 36415; 71010; 76700; 78452; 80053; 80061; 82550; 82553; 82607; 82728; 82746; 82962; 82977; 83036; 83540; 83550; 83880; 84100; 84443; 84484; 84550; 85025; 86140; 86703; 86705; 86709; 86803; 87081; 87340; 93005; 93017; 93306; 93970; 99285; J1815; J2785; S5561

== ENCOUNTER 2017-07-08 23:17 | Inpatient (IN) | payer MEDICARE, MEDICAID ==
[~2017-07-08] VITALS: Ht 154.9 cm; Wt 67.6 kg
[~2017-07-08 23:17] MED LIST changes: +ACETAMINOPHEN325 M1 ORAL; +ADALAT CC90 MG ORAL; +ATORVASTATIN CA40 MG ORAL; +DOCUSATE SODIU100 MG ORAL; +EPOGEN10000 UNIT SUBQ; +FOLIC ACID1 MG ORAL; +GABAPENTIN300 MG ORAL; +HUMULIN R100 UNIT/1 SUBQ; +ISOSORBIDE MON120 M1 PO; +LANSOPRAZOLE30 MG ORAL; +LEVEMIR100 UNIT/1 SUBQ; +LEVOTHYROXINE50 MCG ORAL; +LISINOPRIL20 MG ORAL; +METOPROLOL TART50 M1 ORAL; +NEPHRO-VITE RX1 EAC1 PO; +NORCO 5-325 TA1 EAC1 ORAL; +SENNA8.6 M2 PO; +ZOFRAN4 M3 ORAL; +[UNRECOGNIZED DRUG - OTHER]
[2017-07-09] VITALS (16 sets, daily range): BP systolic 105–205; BP diastolic 49–78
[2017-07-09 02:28] LABS: BASOPHILS % (AUTO) 1.6 % (0.0-2.0); EOSINOPHILS % (AUTO) 3.2 % (0.0-3.0); LYMPHOCYTES % (AUTO) 24.4 % (20.0-45.0); MEAN CORPUSCULAR HEMOGLOBIN 30.2 PG (27.0-31.0); MEAN CORPUSCULAR HGB CONC 33.4 G/DL (32.0-36.0); MEAN CORPUSCULAR VOLUME 90 FL (80-99); MEAN PLATELET VOLUME 7.6 FL (6.5-10.1); MONOCYTES % (AUTO) 9.2 % (1.0-10.0); NEUTROPHILS % (AUTO) 61.5 % (45.0-75.0); PLATELET COUNT 259 K/UL (150-450); RED BLOOD COUNT 3.77 M/UL (4.20-5.40); RED CELL DISTRIBUTION WIDTH 13.4 % (11.6-14.8); WHITE BLOOD COUNT 4.5 K/UL (4.8-10.8)
[2017-07-09 02:39] LABS: PROTHROMBIN TIME 10.2 SEC (9.30-11.50)
[2017-07-09 02:42] LABS: ANION GAP 6 mmol/L (5-15); CALCIUM 8.7 MG/DL (8.5-10.1); CARBON DIOXIDE 34 MMOL/L (21-32); CHLORIDE 98 MMOL/L (98-107); CREATININE 3.2 MG/DL (0.55-1.30); GLOMERULAR FILTRATION RATE 14.4 mL/min (>60); POTASSIUM 4.1 MMOL/L (3.5-5.1); SODIUM 138 MMOL/L (136-145)
[2017-07-09 04:57] LABS: APPEARANCE,URINE CLEAR; KETONES,URINE NEGATIVE (NEGATIVE); LEUKOCYTE ESTERASE ,URINE 1+ (NEGATIVE); NITRITE,URINE NEGATIVE (NEGATIVE); PH,URINE 8 (4.5-8.0); PROTEIN,URINE 4+ (NEGATIVE); UROBILINOGEN,URINE NORMAL MG/DL (0.0-1.0)
[2017-07-09 05:05] LABS: RBC,URINE 0-2 /HPF (0 - 2); SQUAMOUS EPITHELIAL CELL,UR FEW /LPF (NONE/OCC)
[2017-07-09] MEDS: Metoprolol Tartrate 50mg tab ORAL SCH ×2 (05:19→21:53)
[2017-07-09] MEDS ORDERED: NeoSporin Gu Irrig 1ml Amp IRRIG ONE (07:30)
[2017-07-09] MEDS ORDERED: Bupivacaine 0.25% Inj 30ml INJ ONE (07:30)
[2017-07-09] MEDS ORDERED: Bacitracin 50000 Units Vial IRRIG ONE (07:30)
[2017-07-09] MEDS ORDERED: Thrombin 5000 units TOPIC ONE (07:30)
[2017-07-09] MEDS ORDERED: Lidocaine 1% Plain 30 ml INJ ONE (07:30)
--- NOTE | 2017-07-09 07:45 | Pre-Procedure Note/Attestation ---
Pre-Procedure Note/Attestation Complete Prior to Procedure Planned Procedure: left Procedure Narrative: Left arm arteriovenous fistula placement Indications for Procedure Pre-Operative Diagnosis: ESRD need for HD access Attestation I attest that I discussed the nature of the procedure; its benefits; risks and complications; and alternatives (and the risks and benefits of such alternatives ), prior to the procedure, with the patient (or the patient's legal security systems sales representative). I attest that, if there was a reasonable possibility of needing a blood transfusion, the patient (or the patient's legal security systems sales representative) was given the [facility] standardized written summary, pursuant to the [place] Blood Safety Act ([place] Health and Safety Code # 1645, as amended). I attest that I re-evaluated the patient just prior to the surgery and that there has been no change in the patient's H&P, except as documented below: LESLY ZAMUDIO Jul 09, 2017 07:45
[2017-07-09] MEDS ORDERED: Morphine Sulfate 2mg/ml Inj IVP PRN (08:30)
[2017-07-09] MEDS ORDERED: Midazolam 2mg/2ml Inj IVP PRN (08:30)
[2017-07-09] MEDS ORDERED: Ketorolac 30mg Inj IV PRN (08:30)
[2017-07-09] MEDS ORDERED: fentaNYL 100 mcg/2 mL IV PRN (08:30)
[2017-07-09] MEDS ORDERED: DiphenhydrAMINE 50mg/ml Inj IVP PRN (08:30)
[2017-07-09] MEDS ORDERED: Metoclopramide 10mg/2ml Inj IVP PRN (08:30)
--- NOTE | 2017-07-09 08:35 | Anethesia Preoperative Eval ---
Anesthesia Pre-op PMH/ROS General Date of Evaluation: Jul 09, 2017 Time of Evaluation: 07:30 Anesthesiologist: WESLEY ASA Score: ASA 3 Mallampati Score Class I : Soft palate, uvula, fauces, pillars visible Class II: Soft palate, uvula, fauces visible Class III: Soft palate, base of uvula visible Class IV: Only hard plate visible Mallampati Classification: Class II Surgeon: Christie Diagnosis: ESRD Surgical Procedure: Left ARM AV Fisula Ceation Anesthesia History: none Allergies: Coded Allergies: No Known Allergies (Unverified , 05/12/17) Medications: see eMAR Past Medical History Cardiovascular: Reports: HTN Gastrointestinal/Genitourinary: Reports: ESRD Anesthesia Pre-op Phys. Exam Physician Exam Last Vital Signs Date Time Temp Pulse Resp B/P (MAP) Pulse Ox O2 Delivery O2 Flow Rate FiO2 07/09/17 05:20 190/76 07/09/17 05:19 73 07/09/17 02:00 19 Room Air 99.0 07/09/17 01:30 98.1 98 Constitutional: NAD Neurologic: CN 2-12 intact Cardiovascular: RRR Respiratory: CTA Gastrointestinal: S/NT/ND Airway Exam Mallampati Score: Class II MO: full Dentures: upper Anesthesia Pre-op A/P Labs Hematology Test 07/09/17 02:00 White Blood Count 4.5 K/UL (4.8-10.8) L Red Blood Count 3.77 M/UL (4.20-5.40) L Hemoglobin 11.4 G/DL (12.0-16.0) L Hematocrit 34.0 % (37.0-47.0) L Mean Corpuscular Volume 90 FL (80-99) Mean Corpuscular Hemoglobin 30.2 PG (27.0-31.0) Mean Corpuscular Hemoglobin Concent 33.4 G/DL (32.0-36.0) Red Cell Distribution Width 13.4 % (11.6-14.8) Platelet Count 259 K/UL (150-450) Mean Platelet Volume 7.6 FL (6.5-10.1) Neutrophils (%) (Auto) 61.5 % (45.0-75.0) Lymphocytes (%) (Auto) 24.4 % (20.0-45.0) Monocytes (%) (Auto) 9.2 % (1.0-10.0) Eosinophils (%) (Auto) 3.2 % (0.0-3.0) H Basophils (%) (Auto) 1.6 % (0.0-2.0) Coagulation Test 07/09/17 02:00 Prothrombin Time 10.2 SEC (9.30-11.50) Prothromb Time International Ratio 1.0 (0.9-1.1) Activated Partial Thromboplast Time 28 SEC (23-33) Chemistry Test 07/09/17 02:00 Sodium Level 138 MMOL/L (136-145) Potassium Level 4.1 MMOL/L (3.5-5.1) Chloride Level 98 MMOL/L (98-107) Carbon Dioxide Level 34 MMOL/L (21-32) H Anion Gap 6 mmol/L (5-15) Blood Urea Nitrogen 34 mg/dL (7-18) H Creatinine 3.2 MG/DL (0.55-1.30) H Estimat Glomerular Filtration Rate 14.4 mL/min (>60) Glucose Level 231 MG/DL (74-106) H Calcium Level 8.7 MG/DL (8.5-10.1) Risk Assessment & Plan Plan: MAC Loal Status Change Before Surgery: No Pre-Antibiotics Drug: ANcef Given Within 1 Hr of Incision: Yes Time Given: 08:00 Brandon Lora M.D. Jul 09, 2017 08:35
--- NOTE | 2017-07-09 08:37 | Immediate Post-Op Evaluation ---
Immediate Post-Op Evalulation Immediate Post-Op Evalulation Procedure: Left AV Fistula Creation Date of Evaluation: Jul 09, 2017 Time of Evaluation: 10:00 IV Fluids: 200 Blood Products: 0 Estimated Blood Loss: 0 Urinary Output: 0 Blood Pressure Systolic: 170 Blood Pressure Diastolic: 87 Pulse Rate: 86 Respiratory Rate: 16 O2 Sat by Pulse Oximetry: 99 Temperature (Fahrenheit): 97 Pain Score (1-10): 0 Nausea: No Vomiting: No Patient Status: awake, reacts, patent Drug: Ancef Given Within 1 Hr of Incision: Yes Time Given: 08:00 Brnadon Lora M.D. Jul 09, 2017 08:37
--- NOTE | 2017-07-09 08:41 | 48 Hour Post Anesthesia Eval ---
Post Anesthesia Evaluation Procedure: Left AV Fistula Creation Date of Evaluation: Jul 11, 2017 Time of Evaluation: 10:00 Blood Pressure Systolic: 178 0: 96 Pulse Rate: 78 Respiratory Rate: 16 Temperature (Fahrenheit): 97.2 O2 Sat by Pulse Oximetry: 99 Airway: patent Nausea: No Vomiting: No Hydration Status: adequate Mental Status/LOC: patient returned to baseline Post-Anesthesia Complications: non Follow-up care needed: patient intructions given Brandon Lora M.D. Jul 09, 2017 08:41
[2017-07-09] MEDS ORDERED: Sennosides 8.6mg ORAL SCH (09:00)
[2017-07-09] MEDS ORDERED: Lisinopril 20mg tab ORAL SCH (09:00)
[2017-07-09] MEDS ORDERED: Nephrovite tab (Rena-Vite) ORAL SCH (09:00)
[2017-07-09] MEDS ORDERED: Imdur 30mg tab ORAL SCH (09:00)
--- NOTE | 2017-07-09 09:18 | Operative Note - PDOC ---
Operative Note Operative Note Pre-op Diagnosis: ESRD need for HD access Procedure: Left arm arteriovenous fistula placement Post-op Diagnosis: same as pre-op Surgeon: Tobi Brady Anesthesiologist: Brandon Lora Anesthesia: local, MAC Specimen: none Complications: none Condition: stable Fluids: 200cc Estimated Blood Loss: minimal - 5cc Drains: none Implant(s) used?: TOBI oMdi Jul 09, 2017 09:18
[2017-07-09] MEDS ORDERED: Acetaminophen 500mg (ES) tab ORAL PRN (09:30)
--- NOTE | 2017-07-09 10:00 | Consultation ---
DATE OF CONSULTATION: 07/09/2017 VASCULAR SURGERY CONSULTATION CONSULTING PHYSICIAN: Tobi Brady M.D. REFERRING PHYSICIAN: 1. Makenna Daniel M.D. 2. Francis Falk M.D. REASON FOR CONSULTATION: Permanent access for hemodialysis. HISTORY OF PRESENT COMPLAINT: This is a pleasant 67-year-old female, who suffers from end-stage renal failure, on hemodialysis through a right chest tunneled Perma catheter. The patient has diabetes poorly controlled with hypertension being optimized. Vascular surgery is consulted for evaluation and permanent access for dialysis. PAST MEDICAL HISTORY: As above. History of obesity, hypertension, diabetes mellitus, and end-stage renal failure, on hemodialysis. MEDICATIONS: See attached MAR. ALLERGIES: She has no known drug allergies. SOCIAL HISTORY: Denies history of smoking, drugs, or alcohol abuse. FAMILY HISTORY: Unremarkable. SYSTEMIC REVIEW: CARDIOVASCULAR: No history of chest pain or palpitation. PULMONARY: No cough. No hemoptysis. GASTROINTESTINAL: No history of abdominal pain, constipation, or diarrhea. GENITOURINARY: No urinary symptoms. NEUROLOGICAL: No history of stroke or seizures. PHYSICAL EXAMINATION: VITAL SIGNS: The patient is afebrile 97, heart rate 80, blood pressure 150/70, and respirations 16. She had a right chest tunneled hemodialysis Perma catheter. The site is clear, dry, and intact. LUNGS: Clear to auscultation. HEART: Regular rate and rhythm. ABDOMEN: Soft, nontender. EXTREMITIES: She has palpable radial pulses, brachial pulses. Palpable femoral pulses. Her feet are warm and intact pedal Doppler bilaterally. IMPRESSION: 1. End-stage renal failure, requiring permanent access for hemodialysis therapy. 2. Hypertension and diabetes mellitus, poorly controlled, being optimized. PLAN AND RECOMMENDATIONS: 1. We will schedule the patient for left upper arm arteriovenous shunt fistula placement. 2. Medical optimization and progress per primary medical service. Endocrinology and Renal service. The above was discussed at length with the patient. Tobi Brady M.D. DR: GANGA JOB#: [id number] CC: Tobi Brady M.D.; Fax#: [phone] Thien Dawson M.D.; FAX#: [phone] YA BONILLA M.D.; FAX#: [phone]
--- NOTE | 2017-07-09 10:05 | Diagnostic Imaging Report ---
Indication: Shortness of breath Technique: One view of the chest Comparison: 06/08/2017 Findings: Lungs and pleural spaces are clear. Heart size is normal, appears smaller than on the prior study. Apparent difference may may be an artifact of better inspiration. Right chest tunneled dialysis catheter is again demonstrated Impression: No acute process. Findings as noted
[2017-07-09] MEDS: Lisinopril 20mg tab ORAL SCH ×2 (11:58→18:52)
[2017-07-09] MEDS: Docusate 250mg cap ORAL SCH (11:58)
[2017-07-09] MEDS: Nephrovite tab (Rena-Vite) ORAL SCH (11:59)
[2017-07-09] MEDS: Imdur 30mg tab ORAL SCH (11:59)
[2017-07-09] MEDS: Sennosides 8.6mg ORAL SCH (12:02)
--- NOTE | 2017-07-09 13:10 | Consultation ---
Consult Note Consult Note patient admitted for vascular surgery . Assessment/Plan (1) ESRD (end stage renal disease) on dialysis (2) h/o CAD (3) Hypertensive kidney disease (4) Diabetic nephropathy with proteinuria 95) h/o Anemia , low B12 and low Iron admitted for fistula placement last dialysed 07/08 HTN, OOC , meds adjusted Per orders VOLODYMYR DOUGLAS Jul 09, 2017 13:10
[2017-07-09] MEDS: HydrALAZINE 50mg tab ORAL SCH ×2 (15:36→22:52)
--- NOTE | 2017-07-09 21:15 | History and Physical Report ---
DATE OF ADMISSION: 07/09/2017 HISTORY OF PRESENT ILLNESS: The patient is getting left arm AV fistula. The patient is on dialysis. The patient also has elevated blood pressure and is admitted for elevated blood pressure control as well. The patient is a poor historian. Denies nausea, vomiting, or diarrhea. Denies headache. Denies dizziness. No fever or chills. PAST MEDICAL HISTORY: End-stage renal disease, on hemodialysis, hypertension, hyperlipidemia, constipation, anemia of chronic disease, NIDDM, hypothyroidism, GERD, and constipation. PAST SURGICAL HISTORY: Related to dialysis. MEDICATIONS: Colace, Lipitor, Epogen, gabapentin, insulin Levemir, isosorbide mononitrate, Prevacid, lisinopril, metoprolol, and Senokot. ALLERGIES: No known allergies. FAMILY HISTORY: Noncontributory. SOCIAL HISTORY: Denies smoking, alcohol, or illicit drugs. Comes from a fpc. REVIEW OF SYSTEMS: HEENT: Denies headaches. RESPIRATORY: Denies shortness of breath. Denies cough. CARDIOVASCULAR: Denies chest pain. GASTROINTESTINAL: Denies nausea, vomiting, or diarrhea. EXTREMITIES: Denies pain in lower extremities. CENTRAL NERVOUS SYSTEM: No change in vision or speech pattern. PHYSICAL EXAMINATION: VITAL SIGNS: Temperature 97, pulse 61, and blood pressure 116/63. HEENT: PERRLA. NECK: Supple. CHEST: Clear to auscultation. Does have chest wall dialysis access. ABDOMEN: Soft, nontender, and nondistended. EXTREMITIES: A 1+ edema. NEUROLOGIC: Reflexes on both sides. She has generalized weakness. LABORATORY DATA: WBC of 4.5, hemoglobin 11.4, and platelets 259,000. Sodium 138, potassium 4.1, BUN 34, creatinine 3.3, and glucose of 231. ASSESSMENT AND PLAN: End-stage renal disease, on hemodialysis. Left arm arteriovenous fistula per Dr. Brady. Dr. Falk has also been consulted as well as Dr. Archer for her diabetes control and Dr. Falk in charge of blood pressure control as well. Makenna Daniel M.D. DR: LISETTE JOB#: [id number] CC:
[2017-07-10] VITALS: BP 157/66
[2017-07-10 04:00] VITALS: BP 150/61
[2017-07-10] MEDS: HydrALAZINE 50mg tab ORAL SCH (05:36)
[2017-07-10 07:21] LABS: BASOPHILS % (AUTO) 1.6 % (0.0-2.0); EOSINOPHILS % (AUTO) 3.4 % (0.0-3.0); LYMPHOCYTES % (AUTO) 26.3 % (20.0-45.0); MEAN CORPUSCULAR HEMOGLOBIN 30.1 PG (27.0-31.0); MEAN CORPUSCULAR HGB CONC 33.2 G/DL (32.0-36.0); MEAN CORPUSCULAR VOLUME 91 FL (80-99); MEAN PLATELET VOLUME 7.1 FL (6.5-10.1); MONOCYTES % (AUTO) 8.4 % (1.0-10.0); NEUTROPHILS % (AUTO) 60.4 % (45.0-75.0); PLATELET COUNT 233 K/UL (150-450); RED BLOOD COUNT 3.44 M/UL (4.20-5.40); RED CELL DISTRIBUTION WIDTH 13.5 % (11.6-14.8); WHITE BLOOD COUNT 4.3 K/UL (4.8-10.8)
[2017-07-10 08:00] VITALS: BP 131/64
[2017-07-10] MEDS: Sennosides 8.6mg ORAL SCH (08:44)
[2017-07-10] MEDS: Nephrovite tab (Rena-Vite) ORAL SCH (08:44)
[2017-07-10] MEDS: Docusate 250mg cap ORAL SCH (08:44)
[2017-07-10] MEDS: Lisinopril 20mg tab ORAL SCH (08:45)
[2017-07-10] MEDS: Imdur 30mg tab ORAL SCH (08:45)
[2017-07-10] MEDS: Metoprolol Tartrate 50mg tab ORAL SCH (08:46)
[2017-07-10 09:08] VITALS: BP 152/78
--- NOTE | 2017-07-10 09:08 | 48 Hour Post Anesthesia Eval ---
Post Anesthesia Evaluation Procedure: Left AV Fistula Creation Date of Evaluation: Jul 10, 2017 Time of Evaluation: 09:07 Blood Pressure Systolic: 152 0: 78 Pulse Rate: 64 Respiratory Rate: 20 Temperature (Fahrenheit): 97.6 O2 Sat by Pulse Oximetry: 98 Airway: patent Nausea: No Vomiting: No Pain Intensity: 2 Hydration Status: adequate Cardiopulmonary Status: stable Mental Status/LOC: patient returned to baseline Follow-up Care/Observations: n/a Post-Anesthesia Complications: none Follow-up care needed: N/A TAYLA YOUNG M.D. Jul 10, 2017 09:08
--- NOTE | 2017-07-10 11:40 | Nephrology Progress Note ---
Assessment/Plan Problem List: (1) ESRD (end stage renal disease) (2) Diabetic nephropathy with proteinuria (3) Hypertensive kidney disease Assessment (1) ESRD (end stage renal disease) on dialysis (2) h/o CAD (3) Hypertensive kidney disease (4) Diabetic nephropathy with proteinuria 95) h/o Anemia , low B12 and low Iron Plan admitted for fistula placement, post op day 1- stable last dialysed 07/08 next 07/10 or 07/11 as OP HTN, OOC , meds adjusted Per orders Subjective ROS Limited/Unobtainable: No Objective Objective Last 24 Hour Vital Signs Date Time Temp Pulse Resp B/P (MAP) Pulse Ox O2 Delivery O2 Flow Rate FiO2 07/10/17 09:08 64 20 98 07/10/17 08:46 64 150/61 07/10/17 08:45 150/61 07/10/17 08:45 150/61 07/10/17 08:45 64 150/61 07/10/17 08:00 97.0 64 20 131/64 98 Room Air 07/10/17 05:36 150/61 07/10/17 05:33 150/61 07/10/17 04:00 97.6 64 18 150/61 98 Room Air 07/10/17 00:00 98.2 65 18 157/66 98 Room Air 07/09/17 22:52 149/57 07/09/17 22:51 149/57 07/09/17 21:53 70 146/95 07/09/17 20:00 98.2 70 18 153/61 98 Room Air 07/09/17 18:52 145/76 07/09/17 17:01 145/76 07/09/17 16:00 98.4 71 18 157/61 97 07/09/17 15:36 136/59 07/09/17 12:00 98.0 100 18 136/59 96 Room Air 07/09/17 11:59 168/63 07/09/17 11:58 168/63 07/09/17 11:57 59 168/63 Intake and Output 07/10/17 07/11/17 19:00 07:00 Intake Total 180 ml Balance 180 ml Intake Oral 180 ml Laboratory Tests 07/10/17 05:10: White Blood Count 4.3L, Red Blood Count 3.44L, Hemoglobin 10.4L, Hematocrit 31.3L, Mean Corpuscular Volume 91, Mean Corpuscular Hemoglobin 30.1, Mean Corpuscular Hemoglobin Concent 33.2, Red Cell Distribution Width 13.5, Platelet Count 233, Mean Platelet Volume 7.1, Neutrophils (%) (Auto) 60.4, Lymphocytes (% ) (Auto) 26.3, Monocytes (%) (Auto) 8.4, Eosinophils (%) (Auto) 3.4H, Basophils (%) (Auto) 1.6 Height (Feet): 5 Height (Inches): 1.00 Weight (Pounds): 149 General Appearance: no apparent distress Objective no change VOLODYMYR DOUGLAS Jul 10, 2017 11:40
[2017-07-10] MEDS ORDERED: Epogen (for ESRD on dialysis) SUBQ SCH (21:00)
--- NOTE | 2017-07-12 04:30 | Operative Note - Dictated ---
DATE OF OPERATION: 07/09/2017 SURGEON: Tobi Brady M.D. ANESTHESIOLOGIST: Brandon Lora M.D. PREOPERATIVE DIAGNOSES: 1. End-stage renal disease, on hemodialysis, requiring permanent access. 2. History of hypertension. POSTOPERATIVE DIAGNOSES: 1. End-stage renal disease, on hemodialysis, requiring permanent access. 2. History of hypertension. PROCEDURE: 1. Left arm brachial artery to cephalic vein arteriovenous fistula. 2. Dilatation and exploration of left cephalic vein. ANESTHESIA: Local sedation. COMPLICATIONS: None. FINDINGS: Suitable left cephalic vein measuring about 3-4 mm in size with good venous flush. Left brachial artery was soft measuring about 4 mm in size. Post AV shunt creation, the patient had strongly palpable thrill. The patient will require 6-8 weeks of AV shunt maturation time prior to access use. INDICATION FOR PROCEDURE: This is a 67-year-old female who suffers from end-stage renal disease, on hemodialysis. Vascular Surgery is consulted for the above procedure. Risks and benefits were discussed and consent was obtained. DESCRIPTION OF PROCEDURE: The patient was brought to the operating room. After a dose of antibiotics and sedation by the anesthesiologist, the left arm was prepped and draped in the usual sterile manner. A transverse antecubital incision was made on the left antecubital fossa. The cephalic vein was sharply dissected and all the branches were divided between 2-0 and 3-0 silk sutures. The left cephalic vein was flushed with heparinized saline solution. Coronary dilator up to 2 was advanced without difficulty. The left brachial artery was sharply dissected out. Proximal double loop control was obtained. Arteriotomy less than 0.5 cm was carried out. End-to-side anastomosis was carried out using a running 7-0 Prolene suture. Anastomosis was completed. Flow was restored with a strongly palpable thrill and radial pulse. The wound was irrigated with antibiotic irrigation and closed using interrupted 2-0 and 3-0 Vicryl sutures. The skin was closed using skin ranjit and 4-0 Monocryl subcuticular skin closure. Sterile dressing was applied. The patient tolerated the procedure very well. Tobi Brady M.D. DR: PARVIN JOB#: [id number] CC: Tobi Brady M.D.; Fax#: [phone] ELIS GILLIAM M.D. ; FAX#: [phone] Francis Falk M.D.
--- NOTE | 2017-07-13 12:27 | Discharge Summary ---
Discharge Summary Hospital Course Date of Admission Jul 09, 2017 at 01:13 Date of Discharge Jul 10, 2017 at 11:30 Admitting Diagnosis HPI Carolina Vasquez is a 67 year old female who was admitted on Jul 09, 2017 at 01:13 for Acute Kidney Failure,Heart Failure Hospital Course dc summary #[id number] Discharge Medications Continued Medications: Acetaminophen* (Acetaminophen 325MG Tablet*) 325 Mg Tablet 325 MG ORAL Q4H PRN for MILD PAIN Atorvastatin Calcium* (Atorvastatin Calcium*) 40 Mg Tablet 40 MG ORAL BEDTIME, TAB Docusate Sodium* (Docusate Sodium*) 100 Mg Capsule 100 MG ORAL DAILY, CAP Epoetin Panchito (Epogen) 10,000 Unit/1 Ml Vial 67596 UNIT SUBQ 3XW, VIAL Folic Acid* (Folic Acid*) 1 Mg Tablet 1 MG ORAL DAILY, TAB Gabapentin* (Gabapentin*) 300 Mg Capsule 300 MG ORAL BEDTIME Hydrocodone Bit/Acetaminophen 5-325* ([place]ry 5-325 Tablet*) 1 Each Tablet 1 TAB ORAL Q4H PRN for MODERATE TO SEVERE PAIN Insulin Detemir (Levemir) 100 Unit/1 Ml Vial 15 SUBQ Q12HR, VIAL Insulin Regular, Human (Humulin R) 100 Unit/1 Ml Vial 0 SUBQ for SLIDING SCALE Isosorbide Mononitrate (Isosorbide Mononitrate Er) 60 Mg Tab.er.24h 180 MG PO DAILY for FOR ANGINA Lansoprazole* (Lansoprazole*) 30 Mg Capsule.dr 30 MG ORAL DAILY, CAP Levothyroxine Sodium* (Levothyroxine Sodium*) 50 Mcg Tablet 50 MCG ORAL DAILY, TAB Take in the morning on an empty stomach, at least 30 minutes before food. Lisinopril (Lisinopril*) 20 Mg Tablet 20 MG ORAL DAILY for HOLD IF SBP>110 OR PULSE<60 Metoprolol Tartrate* (Metoprolol Tartrate*) 50 Mg Tablet 50 MG ORAL EVERY 12 HOURS Nifedipine Er* (Adalat Cc*) 90 Mg Tablet.er 90 MG ORAL DAILY for HOLD IF BP <110 Do not chew or crush tablet Ondansetron* (Zofran*) 4 Mg Tablet 4 MG ORAL Q6H PRN for Nausea & Vomiting Sennosides (Senna) 8.6 Mg Tablet 8.6 MG PO DAILY for HOLD FOR LBM Vit B Cmplx 3/Fa/Vit C/Biotin (Nephro-Blaze Rx Tablet) 1 Each Tablet 1 EACH PO DAILY Discharge Condition Upon Discharge: stable Discharge Disposition Patient was discharged to SNF/Subacute Facility(03) Discharge Diagnoses: Discharge Instructions Discharge Instructions Special Instructions I have been assigned to complete a D/C Summary on this account. I was not involved in the patient management Kaitlin Durán NP (Vanchtein) Jul 13, 2017 12:27
--- NOTE | 2017-07-14 05:00 | Discharge Summary 2 SIG ---
DATE OF ADMISSION: 07/09/2017 DATE OF DISCHARGE: 07/10/2017 REASON FOR ADMISSION: 67-year-old female with a history of end-stage renal disease, on hemodialysis, coronary artery disease, anemia, and diabetes, presented for AV fistula placement. HOSPITAL COURSE: The patient undergone on 07/09/2017 left arm brachial artery to cephalic vein arteriovenous fistula placement with dilatation and exploration of left cephalic vein. The patient tolerated surgery well. Last hemodialysis was done on 07/08/2017. [employer] Service Tech followed. Blood pressure was out of control. Antihypertensive medication regimen was titrated and optimized. Blood pressure was managed with the newly titrated antihypertensive regimen and slowly was improving. Blood sugar was managed with sliding scale of insulin and remained stable. The patient was stable for transfer back to senior living facility. Outpatient hemodialysis to be done either 07/10/2017 or 07/11/2017 as per handle maker. The patient had a history of B12 deficiency and iron deficiency anemia. Hemoglobin and hematocrit remained on the baseline. Patient was stable for transfer back to the senior living facility for continuation of care. Due to the rapid and unexpected improvement in patient's condition, the patient was discharged in one day. FINAL DIAGNOSES: 1. End-stage renal disease, on hemodialysis. 2. Hypertensive kidney disease. 3. Status post 07/09/2017 left arm brachial artery to cephalic vein arteriovenous fistula. 4. Diabetic nephropathy with proteinuria. 5. History of coronary artery disease. 6. History of B12 deficiency and iron deficiency anemia DISCHARGE MEDICATIONS: See medication reconciliation list. DISCHARGE INSTRUCTIONS: The patient was discharged to senior living facility. FOLLOWUP: Follow up with medical doctor at the facility. Makenna Daniel M.D. I have been assigned to dictate discharge summary on this account and I was not involved in the patient's management. Kaitlin FlowersGeneva General HospitalShelbi [facility].P[facility] DR: JOHN JOB#: [id number] CC: EDGAR
== END 2017-07-10 11:30 | DRG 673 ==
LOC: 3E 07-09 01:13
PROC: 03180ZD Bypass Left Brachial Artery to Upper Arm Vein, Open Approach (ICD-10-PCS; principal; 2017-07-09 07:30)
DX: I12.0 Hypertensive chronic kidney disease with stage 5 chronic kidney disease or end stage renal disease (principal); N18.6 End stage renal disease; E11.22 Type 2 diabetes mellitus with diabetic chronic kidney disease; E11.65 Type 2 diabetes mellitus with hyperglycemia; I25.10 Atherosclerotic heart disease of native coronary artery without angina pectoris; E78.5 Hyperlipidemia, unspecified; E03.9 Hypothyroidism, unspecified; K21.9 Gastro-esophageal reflux disease without esophagitis; Z99.2 Dependence on renal dialysis; Z79.4 Long term (current) use of insulin
CPT/HCPCS: 36415; 71010; 80048; 81001; 82962; 85025; 85610; 85730; 86850; 86900; 86901; 87086; 93005; 94003; 94150; J2250; J2405; J2765

== ENCOUNTER 2017-10-05 13:17 | Inpatient (IN) | payer MEDICARE, MEDICAID ==
[~2017-10-05] VITALS: Ht 152.4 cm; Wt 72.6 kg
[2017-10-05] VITALS (8 sets, daily range): BP systolic 161–208; BP diastolic 54–102
--- NOTE | 2017-10-05 14:06 | Emergency Room Report ---
History of Present Illness General Chief Complaint: Nausea Source: Patient Present Illness HPI 67-year-old female, history of end-stage renal disease, on dialysis Thursday, last dialysis was today, only finished 3 hours, as patient has been having dizziness and nausea. Patient states that she's been having dizziness and nausea since yesterday, worse with when she walks. Patient states that she fell, hit her head did not lose consciousness. Also complaining of left shoulder pain worse with any movement. Complaining of nausea and vomiting, no abdominal pain no diarrhea. No fever no chills. No chest pain or shortness of breath Allergies: Coded Allergies: No Known Allergies (Unverified , 05/12/17) Patient History Past Medical History: see triage record Past Surgical History: none Pertinent Family History: none Reviewed Nursing Documentation: PMH: Agreed, PSxH: Agreed Nursing Documentation-PMH Past Medical History: No History, Except For Hx Cardiac Problems: Yes Hx Hypertension: Yes Hx Pacemaker: No Hx Asthma: Yes Hx COPD: No Hx Diabetes: Yes - TYPE 2 DIABETES MELLITUS Hx Cancer: No Hx Gastrointestinal Problems: No Hx Dialysis: No Hx Neurological Problems: No Hx Transient Ischemic Attacks: Yes - ACUTE ISCHEMIC HEART DISEASE Hx Dementia: No Hx Alzheimer's Disease: No Hx Parkinson's Disease: No Hx Meningitis: No Hx Encephalitis: No Hx Seizures: No Hx Epilepsy: No Hx Multiple Sclerosis: No Hx Cerebral Palsy: No Hx Amyotrophic Lat Sclerosis: No Hx Guillian-[place] Syndrome: No Hx Paralysis: No Hx Peripheral Neuropathy: No Hx Spinal Cord Injury: No Hx Head Trauma: No Hx Traumatic Brain Injury: No Hx Memory Loss: No Hx Concentration Difficulty: No Hx Speech Problem: No Hx Tremors: No Hx Vertigo: No Hx Dizziness: No Hx Syncope: No Hx Headaches: No Hx Aphasia: No Hx Dysphasia: No Hx Numbness: No Hx Weakness: Yes - MUSCLE WEAKNESS Hx Fatigue: No Hx Neurologic Surgery: No Hx Brain Shunt: No Review of Systems All Other Systems: negative except mentioned in HPI Physical Exam Vital Signs Date Time Temp Pulse Resp B/P (MAP) Pulse Ox O2 Delivery O2 Flow Rate FiO2 10/05/17 13:23 97.8 99 22 218/91 96 Room Air 97.9 Sp02 EP Interpretation: reviewed, normal General Appearance: alert, GCS 15, non-toxic, mild distress Head: normocephalic, atraumatic Eyes: bilateral eye normal inspection, bilateral eye PERRL, bilateral eye EOMI ENT: normal ENT inspection, normal pharynx, normal voice, moist mucus membranes Neck: normal inspection, full range of motion, supple Respiratory: normal inspection, lungs clear, normal breath sounds, no respiratory distress, no retraction, no wheezing, speaking full sentences, chest symmetrical Cardiovascular #1: normal inspection, regular rate, rhythm, normal capillary refill Cardiovascular #2: 2+ radial (R), 2+ radial (L) Gastrointestinal: normal inspection, non tender, soft, non-distended, no guarding Musculoskeletal: other - Left shoulder tender to palpation, limited range of motion secondary to pain, proximal humerus with 3 x 3 area of ecchymosis, full range of motion all other extremities Neurologic: normal inspection, alert, oriented x3, responsive, 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 as tested, motor strength/tone normal, sensory intact, speech normal, other - cannot assess gait pt dizzy Psychiatric: normal inspection, judgement/insight normal, memory normal Skin: normal inspection, normal color, no rash, warm/dry, well hydrated, normal turgor Procedures Splinting Splinting : Consent: Verbal Location: L shoulder Pre-Made Type: L shoulder slingh Pre-Proc Neuro Vasc Exam: normal Post-Proc Neuro Vasc Exam: normal Patient Tolerated: Well Complications: None Medical Decision Making Diagnostic Impression: Primary Impression: Humeral head fracture Additional Impressions: ESRD (end stage renal disease) Dizziness Unsteady gait Hyperkalemia ER Course 67-year-old female with dizziness and nausea, fell yesterday DDX: Vasovagal vs. orthostatic / hypovolemic/dehydration vs. cardiac arrhythmia (SVT , Afib) vs. cardiac (, ACS) vs. PE vs. metabolic (hypoglycemia, hypoxia), vs neuro (seizure, CVA, intracranial bleed) Also with left shoulder pain rule out contusion versus fracture Plan: bgm, cbc, bmp, ekg, cxr consider IVF CT head ER course: Patient has been monitored during ED stay, HD stable Given Zofran she feels much better no emergent need for dialysis L humeral head fx, (Radiology reads degen dx but pt has pain there after fall), placed in shoulder sling attempted to ambulate patient but still too unsteady and lightheaded will admit Disposition: Patient is to be admitted to [facility] Faustin Please note that this Emergency Department Report was dictated using [employer] inspector technology software, occasionally this can lead to erroneous entry secondary to interpretation by the dictation equipment. EKG Diagnostic Results EP Interpretation: Yes Rate: normal Rhythm: NSR ST Segments: No acute changes ASA given to patient: No Rhythm Strip EP Interpretation: Yes Rate: 90 Rhythm: NSR, no PVCs, no ectopy Chest X-ray CXR: Ordered: Yes 1 view Indication: Dizziness EP interpretation: Yes Interpretation: No consolidation, no effusion, no PTX, no acute cardiopulmonary disease, dialysis cath noted, L humeral head fx Impression: No acute disease Electronically signed by Lucinda Salcedo MD Xray: Left shoulder Complete Indication: Pain EP Interpretation: Yes Interpretation: L humeral head fx Impression: L humeral head fx Electronically signed by Lucinda Salcedo MD Laboratory Tests Test 10/05/17 14:35 White Blood Count 7.6 K/UL (4.8-10.8) Red Blood Count 3.72 M/UL (4.20-5.40) L Hemoglobin 12.4 G/DL (12.0-16.0) Hematocrit 35.2 % (37.0-47.0) L Mean Corpuscular Volume 95 FL (80-99) Mean Corpuscular Hemoglobin 33.5 PG (27.0-31.0) H Mean Corpuscular Hemoglobin Concent 35.3 G/DL (32.0-36.0) Red Cell Distribution Width 11.1 % (11.6-14.8) L Platelet Count 244 K/UL (150-450) Mean Platelet Volume 8.0 FL (6.5-10.1) Neutrophils (%) (Auto) 83.0 % (45.0-75.0) H Lymphocytes (%) (Auto) 9.7 % (20.0-45.0) L Monocytes (%) (Auto) 5.6 % (1.0-10.0) Eosinophils (%) (Auto) 0.5 % (0.0-3.0) Basophils (%) (Auto) 1.1 % (0.0-2.0) Prothrombin Time 10.6 SEC (9.30-11.50) Prothrombin Time INR 1.0 (0.9-1.1) PTT 27 SEC (23-33) Sodium Level 139 MMOL/L (136-145) Potassium Level 5.3 MMOL/L (3.5-5.1) H Chloride Level 101 MMOL/L (98-107) Carbon Dioxide Level 26 MMOL/L (21-32) Anion Gap 12 mmol/L (5-15) Blood Urea Nitrogen 61 mg/dL (7-18) H Creatinine 5.6 MG/DL (0.55-1.30) H Estimate Glomerular Filtration Rate 7.6 mL/min (>60) Glucose Level 181 MG/DL (74-106) H Calcium Level 9.7 MG/DL (8.5-10.1) Total Bilirubin 0.7 MG/DL (0.2-1.0) Aspartate Amino Transferase (AST) 17 U/L (15-37) Alanine Aminotransferase (ALT) 10 U/L (12-78) L Alkaline Phosphatase 167 U/L (46-116) H Total Protein 8.5 G/DL (6.4-8.2) H Albumin 4.1 G/DL (3.4-5.0) Globulin 4.4 g/dL Albumin/Globulin Ratio 0.9 (1.0-2.7) L CT/MRI/US Diagnostic Results CT/MRI/US Diagnostic Results : Imaging Test Ordered: CT head Impression Impression: Negative for acute intracranial bleed or mass effect Ventriculomegaly, probably due to central atrophy. However, this is out of portion to the degree of sulcal dilatation, so the possibility of hydrocephalus is etiology this finding could also be considered. Periventricular deep white matter low attenuation, probably on the basis of chronic ischemic change Minimal sinus disease Last Vital Signs Date Time Temp Pulse Resp B/P (MAP) Pulse Ox O2 Delivery O2 Flow Rate FiO2 10/05/17 13:23 97.8 99 22 218/91 96 Room Air 97.9 Disposition: ADMITTED INPATIENT Condition: Serious Patient Instructions: Alejandro, Adult Lucinda Salcedo M.D. Oct 05, 2017 14:06
--- NOTE | 2017-10-05 14:31 | Diagnostic Imaging Report ---
Indications: Pain, status post fall, dizziness Technique: Spiral acquisitions obtained through the brain. Angled axial and coronal 5 x 5 mm slices were reconstructed. Total dose length product 1354.77 mGycm. CTDI vol(s) 70.38 mGy. Dose reduction achieved using automated exposure control Comparison: None. Findings: There is enlargement of the ventricles, out of proportion to the degree of sulcal dilatation. There is mild periventricular deep white matter low attenuation. No acute intracranial hemorrhage or edema. No mass effect or midline shift. Mclean-white differentiation is preserved. No significant extracranial scalp soft tissue abnormality. Intact calvarium. Mastoids are clear. There is minimal ethmoid sinus disease. The orbits are grossly unremarkable. Impression: Negative for acute intracranial bleed or mass effect Ventriculomegaly, probably due to central atrophy. However, this is out of portion to the degree of sulcal dilatation, so the possibility of hydrocephalus is etiology this finding could also be considered. Periventricular deep white matter low attenuation, probably on the basis of chronic ischemic change Minimal sinus disease The CT scanner at [facility] is accredited by the [employer] and the scans are performed using protocols designed to limit radiation exposure to as low as reasonably achievable to attain images of sufficient resolution adequate for diagnostic evaluation.
[2017-10-05 15:10] LABS: BASOPHILS % (AUTO) 1.1 % (0.0-2.0); EOSINOPHILS % (AUTO) 0.5 % (0.0-3.0); HEMATOCRIT 35.2 % (37.0-47.0); HEMOGLOBIN 12.4 G/DL (12.0-16.0); LYMPHOCYTES % (AUTO) 9.7 % (20.0-45.0); MEAN CORPUSCULAR VOLUME 95 FL (80-99); MONOCYTES % (AUTO) 5.6 % (1.0-10.0); PLATELET COUNT 244 K/UL (150-450); RED BLOOD COUNT 3.72 M/UL (4.20-5.40); RED CELL DISTRIBUTION WIDTH 11.1 % (11.6-14.8); WHITE BLOOD COUNT 7.6 K/UL (4.8-10.8)
[2017-10-05 15:23] LABS: ANION GAP 12 mmol/L (5-15); BLOOD UREA NITROGEN 61 mg/dL (7-18); CALCIUM 9.7 MG/DL (8.5-10.1); CARBON DIOXIDE 26 MMOL/L (21-32); CHLORIDE 101 MMOL/L (98-107); CREATININE 5.6 MG/DL (0.55-1.30); POTASSIUM 5.3 MMOL/L (3.5-5.1); SODIUM 139 MMOL/L (136-145)
[2017-10-05 15:27] LABS: ALANINE AMINOTRANSFERASE 10 U/L (12-78); ALBUMIN 4.1 G/DL (3.4-5.0); ALBUMIN/GLOBULIN RATIO 0.9 (1.0-2.7); ALKALINE PHOSPHATASE 167 U/L (46-116); ASPARTATE AMINO TRANSFERASE 17 U/L (15-37); BILIRUBIN,TOTAL 0.7 MG/DL (0.2-1.0)
--- NOTE | 2017-10-05 15:29 | Diagnostic Imaging Report ---
Indication: Chest pain Technique: One view of the chest Comparison: 07/09/2017 Findings: Lungs and pleural spaces remain clear. Heart size is normal. The aorta is tortuous and calcified. Right jugular tunneled dialysis catheter is again noted.. Findings are unchanged Impression: Unchanged, over one day, findings as above.
[2017-10-05] MEDS ORDERED: Sodium Bicarbonate 50ml Carp IV ONE (15:45)
[2017-10-05] MEDS ORDERED: Calcium Gluconate 1gm/10ml vial IVP ONE (15:45)
--- NOTE | 2017-10-05 16:36 | Diagnostic Imaging Report ---
Indication: Pain Technique: 3 views of the left shoulder Comparison: none Findings: Bones are osteoporotic. No acute fractures. No dislocations. Joint spaces are preserved. There is slight degenerative irregularity of the humeral head. Impression: No acute process Osteoporosis
[2017-10-05 18:05] LABS: APPEARANCE,URINE CLEAR; BILIRUBIN, URINE NEGATIVE (NEGATIVE); COLOR,URINE PALE YELLOW; GLUCOSE, URINE (UA) 3+ (NEGATIVE); KETONES,URINE NEGATIVE (NEGATIVE); LEUKOCYTE ESTERASE ,URINE NEGATIVE (NEGATIVE); NITRITE,URINE NEGATIVE (NEGATIVE); PH,URINE 8 (4.5-8.0); PROTEIN,URINE 4+ (NEGATIVE); UROBILINOGEN,URINE NORMAL MG/DL (0.0-1.0)
[2017-10-05] MEDS ORDERED: UNOBMED (19:18)
[2017-10-05] MEDS: Morphine Sulfate 4mg/ml Inj IVP PRN (21:19)
[2017-10-05] MEDS ORDERED: Labetalol 5mg/ml 20ml vial IV ONE (21:45)
[2017-10-05] MEDS ORDERED: Miralax 17gm pkt ORAL PRN (22:00)
[2017-10-05] MEDS ORDERED: Morphine Sulfate 2mg/ml Inj IVP PRN (22:00)
[2017-10-05] MEDS ORDERED: Zolpidem 5mg tab ORAL PRN (22:00)
[2017-10-05] MEDS ORDERED: Albuterol/Ipratropium 3ml neb HHN PRN (22:00)
[2017-10-05] MEDS ORDERED: Mylanta II UD 30ml ORAL PRN (22:00)
[2017-10-06] VITALS: BP 183/66
[2017-10-06] MEDS ORDERED: Metoprolol Tartrate 50mg tab ORAL ONE (02:45)
[2017-10-06 04:00] VITALS: BP 183/63
[2017-10-06] MEDS: NovoLOG Insulin Flexpen SUBQ SCH ×4 (07:49→20:50)
[2017-10-06 08:26] LABS: BASOPHILS % (AUTO) 1.2 % (0.0-2.0); EOSINOPHILS % (AUTO) 1.1 % (0.0-3.0); HEMATOCRIT 31.8 % (37.0-47.0); HEMOGLOBIN 10.8 G/DL (12.0-16.0); LYMPHOCYTES % (AUTO) 16.3 % (20.0-45.0); MEAN CORPUSCULAR VOLUME 97 FL (80-99); MONOCYTES % (AUTO) 9.9 % (1.0-10.0); NEUTROPHILS % (AUTO) 71.5 % (45.0-75.0); PLATELET COUNT 214 K/UL (150-450); RED BLOOD COUNT 3.27 M/UL (4.20-5.40); RED CELL DISTRIBUTION WIDTH 11.9 % (11.6-14.8); WHITE BLOOD COUNT 5.3 K/UL (4.8-10.8)
[2017-10-06 08:46] LABS: ALANINE AMINOTRANSFERASE 8 U/L (12-78); ALBUMIN 3.2 G/DL (3.4-5.0); ALBUMIN/GLOBULIN RATIO 0.8 (1.0-2.7); ALKALINE PHOSPHATASE 137 U/L (46-116); ANION GAP 8 mmol/L (5-15); ASPARTATE AMINO TRANSFERASE 13 U/L (15-37); BILIRUBIN,TOTAL 0.6 MG/DL (0.2-1.0); BLOOD UREA NITROGEN 65 mg/dL (7-18); CALCIUM 8.9 MG/DL (8.5-10.1); CARBON DIOXIDE 27 MMOL/L (21-32); CHLORIDE 101 MMOL/L (98-107); CHOLESTEROL 132 MG/DL (< 200); CREATININE 5.7 MG/DL (0.55-1.30); HDL CHOLESTEROL 41 MG/DL (40-60); POTASSIUM 5.8 MMOL/L (3.5-5.1); SODIUM 136 MMOL/L (136-145); TRIGLYCERIDES 233 MG/DL (30-150)
[2017-10-06] MEDS: Metoprolol Tartrate 50mg tab ORAL SCH ×2 (09:17→20:51)
[2017-10-06] MEDS: Lisinopril 20mg tab ORAL SCH (09:18)
[2017-10-06] MEDS: Heparin 5000 units/ml inj SUBQ SCH ×2 (09:21→20:51)
--- NOTE | 2017-10-06 09:21 | Consultation ---
History of Present Illness General Date patient seen: Oct 06, 2017 Chief Complaint: Nausea Reason for Consultation: inpatient management Present Illness HPI 67-year-old female with history of end-stage renal disease, on dialysis Thursday, last dialysis was today, Patient states that she's been having dizziness and nausea since yesterday, worse with when she walks. Patient states that she fell, hit her head did not lose consciousness. Also complaining of left shoulder pain worse with any movement. Complaining of nausea and vomiting, no abdominal pain no diarrhea. No fever no chills. No chest pain or shortness of breath Allergies: Coded Allergies: No Known Allergies (Unverified , 05/12/17) Medication History Scheduled Atorvastatin Calcium* (Atorvastatin Calcium*), 40 MG ORAL BEDTIME, (Reported) Docusate Sodium* (Docusate Sodium*), 100 MG ORAL DAILY, (Reported) Epoetin Panchito (Epogen), 10,000 UNIT SUBQ 3XW, (Reported) Folic Acid* (Folic Acid*), 1 MG ORAL DAILY, (Reported) Gabapentin* (Gabapentin*), 300 MG ORAL BEDTIME, (Reported) Insulin Detemir (Levemir), 15 SUBQ Q12HR, (Reported) Isosorbide Mononitrate (Isosorbide Mononitrate Er), 180 MG PO DAILY, (Reported) Lansoprazole* (Lansoprazole*), 30 MG ORAL DAILY, (Reported) Levothyroxine Sodium* (Levothyroxine Sodium*), 50 MCG ORAL DAILY, (Reported) Lisinopril (Lisinopril*), 20 MG ORAL DAILY, (Reported) Metoprolol Tartrate* (Metoprolol Tartrate*), 50 MG ORAL EVERY 12 HOURS, ( Reported) Nifedipine Er* (Adalat Cc*), 90 MG ORAL DAILY, (Reported) Sennosides (Senna), 8.6 MG PO DAILY, (Reported) Vit B Cmplx 3/Fa/Vit C/Biotin (Nephro-Blaze Rx Tablet), 1 EACH PO DAILY, ( Reported) Scheduled PRN Acetaminophen* (Acetaminophen 325MG Tablet*), 325 MG ORAL Q4H PRN for MILD PAIN, (Reported) Hydrocodone Bit/Acetaminophen 5-325* ([place]field 5-325 Tablet*), 1 TAB ORAL Q4H PRN for MODERATE TO SEVERE PAIN, (Reported) Ondansetron* (Zofran*), 4 MG ORAL Q6H PRN for Nausea & Vomiting, (Reported) Miscellaneous Medications Insulin Regular, Human (Humulin R), 0 SUBQ, (Reported) Unable to Obtain Medications (Unable To Obtain Meds), (Reported) Patient History Healthcare decision maker Resuscitation status Advanced Directive on File Past Medical/Surgical History Past Medical/Surgical History: (1) ESRD (end stage renal disease) (2) Diabetic nephropathy with proteinuria Review of Systems All Other Systems: negative except mentioned in HPI Physical Exam General Appearance: WD/WN Lines, tubes and drains: peripheral, dialysis access - left arm HEENT: atraumatic, anicteric Neck: non-tender, normal alignment Respiratory/Chest: chest wall non-tender, lungs clear Cardiovascular/Chest: normal peripheral pulses, normal rate Abdomen: normal bowel sounds, non tender Genitourinary/Rectal: normal genital exam Extremities: normal range of motion 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 Last 24 Hour Vital Signs Date Time Temp Pulse Resp B/P (MAP) Pulse Ox O2 Delivery O2 Flow Rate FiO2 10/06/17 06:36 84 17 Room Air 10/06/17 03:09 84 183/66 10/06/17 00:00 98.2 84 18 183/66 98 Room Air 98.2 10/05/17 22:00 97.9 87 20 180/63 97 Room Air 97.9 10/05/17 21:50 97.8 87 21 185/54 97 Room Air 208.0 10/05/17 21:45 89 185/54 10/05/17 21:45 87 21 161/54 97 Room Air 10/05/17 21:19 97.8 10/05/17 20:51 198/57 10/05/17 20:08 204/69 10/05/17 19:00 92 15 197/96 98 Room Air 10/05/17 18:00 92 15 186/102 98 Room Air 10/05/17 17:00 92 15 199/57 98 Room Air 10/05/17 16:25 97 15 202/61 98 Room Air 10/05/17 15:00 87 19 208/68 96 Room Air 10/05/17 14:57 86 19 203/64 96 Room Air 3/5/18 13:23 97.8 99 22 218/91 96 Room Air 97.9 Intake and Output 10/05/17 10/06/17 19:00 07:00 Intake Total 0 ml Output Total 400 ml Balance -400 ml Intake Oral 0 ml Output Emesis 400 ml # Voids 4 Laboratory Tests Test 10/05/17 11:00 10/05/17 14:35 10/06/17 06:40 Urine Color Pale yellow Urine Appearance Clear Urine pH 8 (4.5-8.0) Urine Specific Alfred 1.010 (1.005-1.035) Urine Protein 4+ (NEGATIVE) H Urine Glucose (UA) 3+ (NEGATIVE) H Urine Ketones Negative (NEGATIVE) Urine Occult Blood 1+ (NEGATIVE) H Urine Nitrite Negative (NEGATIVE) Urine Bilirubin Negative (NEGATIVE) Urine Urobilinogen Normal MG/DL (0.0-1.0) Urine Leukocyte Esterase Negative (NEGATIVE) Urine RBC 2-4 /HPF (0 - 2) H Urine WBC 0-2 /HPF (0 - 2) Urine Squamous Epithelial Cells Few /LPF (NONE/OCC) Urine Bacteria Few /HPF (NONE) White Blood Count 7.6 K/UL (4.8-10.8) 5.3 K/UL (4.8-10.8) Red Blood Count 3.72 M/UL (4.20-5.40) L 3.27 M/UL (4.20-5.40) L Hemoglobin 12.4 G/DL (12.0-16.0) 10.8 G/DL (12.0-16.0) L Hematocrit 35.2 % (37.0-47.0) L 31.8 % (37.0-47.0) L Mean Corpuscular Volume 95 FL (80-99) 97 FL (80-99) Mean Corpuscular Hemoglobin 33.5 PG (27.0-31.0) H 33.0 PG (27.0-31.0) H Mean Corpuscular Hemoglobin Concent 35.3 G/DL (32.0-36.0) 34.0 G/DL (32.0-36.0) Red Cell Distribution Width 11.1 % (11.6-14.8) L 11.9 % (11.6-14.8) Platelet Count 244 K/UL (150-450) 214 K/UL (150-450) Mean Platelet Volume 8.0 FL (6.5-10.1) 7.4 FL (6.5-10.1) Neutrophils (%) (Auto) 83.0 % (45.0-75.0) H 71.5 % (45.0-75.0) Lymphocytes (%) (Auto) 9.7 % (20.0-45.0) L 16.3 % (20.0-45.0) L Monocytes (%) (Auto) 5.6 % (1.0-10.0) 9.9 % (1.0-10.0) Eosinophils (%) (Auto) 0.5 % (0.0-3.0) 1.1 % (0.0-3.0) Basophils (%) (Auto) 1.1 % (0.0-2.0) 1.2 % (0.0-2.0) Prothrombin Time 10.6 SEC (9.30-11.50) Prothromb Time International Ratio 1.0 (0.9-1.1) Activated Partial Thromboplast Time 27 SEC (23-33) Sodium Level 139 MMOL/L (136-145) 136 MMOL/L (136-145) Potassium Level 5.3 MMOL/L (3.5-5.1) H 5.8 MMOL/L (3.5-5.1) H Chloride Level 101 MMOL/L (98-107) 101 MMOL/L (98-107) Carbon Dioxide Level 26 MMOL/L (21-32) 27 MMOL/L (21-32) Anion Gap 12 mmol/L (5-15) 8 mmol/L (5-15) Blood Urea Nitrogen 61 mg/dL (7-18) H 65 mg/dL (7-18) H Creatinine 5.6 MG/DL (0.55-1.30) H 5.7 MG/DL (0.55-1.30) H Estimat Glomerular Filtration Rate 7.6 mL/min (>60) 7.4 mL/min (>60) Glucose Level 181 MG/DL (74-106) H 251 MG/DL (74-106) H Calcium Level 9.7 MG/DL (8.5-10.1) 8.9 MG/DL (8.5-10.1) Total Bilirubin 0.7 MG/DL (0.2-1.0) 0.6 MG/DL (0.2-1.0) Aspartate Amino Transf (AST/SGOT) 17 U/L (15-37) 13 U/L (15-37) L Alanine Aminotransferase (ALT/SGPT) 10 U/L (12-78) L 8 U/L (12-78) L Alkaline Phosphatase 167 U/L (46-116) H 137 U/L (46-116) H Total Protein 8.5 G/DL (6.4-8.2) H 7.1 G/DL (6.4-8.2) Albumin 4.1 G/DL (3.4-5.0) 3.2 G/DL (3.4-5.0) L Globulin 4.4 g/dL 3.9 g/dL Albumin/Globulin Ratio 0.9 (1.0-2.7) L 0.8 (1.0-2.7) L Hemoglobin A1c 7.4 % (4.3-6.0) H Triglycerides Level 233 MG/DL (30-150) H Cholesterol Level 132 MG/DL (< 200) LDL Cholesterol 59 mg/dL (<100) HDL Cholesterol 41 MG/DL (40-60) Cholesterol/HDL Ratio 3.2 (3.3-4.4) L Thyroid Stimulating Hormone (TSH) 1.070 uiU/mL (0.358-3.740) Height (Feet): 5 Weight (Pounds): 160 Medications Current Medications Medications (Trade) Dose Ordered Sig/Toya Route PRN Reason Start Time Stop Time Status Last Admin Dose Admin Acetaminophen (Tylenol) 650 mg Q4H PRN ORAL fever 10/05/17 22:00 11/04/17 21:59 10/06/17 00:46 Al Hydroxide/Mg Hydroxide (Mylanta II) 30 ml Q6H PRN ORAL dyspepsia 10/05/17 22:00 11/04/17 21:59 Albuterol/ Ipratropium (Albuterol/ Ipratropium) 3 ml Q6HRT PRN HHN dyspnea 10/05/17 22:00 10/10/17 21:59 Atorvastatin Calcium (Lipitor) 40 mg BEDTIME ORAL 10/06/17 21:00 11/05/17 20:59 Dextrose (Dextrose 50%) STAT PRN IV Hypoglycemia 10/05/17 22:00 11/04/17 21:59 Furosemide (Lasix) 100 mg EVERY 8 HOURS PRN IV dyspnea 10/05/17 22:00 11/04/17 21:59 Gabapentin (Neurontin) 300 mg BEDTIME ORAL 10/06/17 21:00 11/05/17 20:59 Heparin Sodium (Porcine) (Heparin 5000 units/ml) 5,000 units EVERY 12 HOURS SUBQ 10/06/17 09:00 11/05/17 08:59 Insulin Aspart (NovoLOG) BEFORE MEALS AND HS SUBQ 10/06/17 06:30 11/05/17 06:29 10/06/17 07:49 Levothyroxine Sodium (Synthroid) 50 mcg DAILY ORAL 10/06/17 09:00 11/05/17 08:59 Lisinopril (Prinivil) 20 mg DAILY ORAL 10/06/17 09:00 11/05/17 08:59 Metoprolol Tartrate (Lopressor) 50 mg EVERY 12 HOURS ORAL 10/06/17 09:00 11/05/17 08:59 Morphine Sulfate (Morphine Sulfate) 1 mg EVERY 4 HOURS PRN IVP For Pain 10/05/17 22:00 10/12/17 21:59 Morphine Sulfate (Morphine Sulfate) 4 mg Q4H PRN IVP For Pain 10/05/17 21:15 10/12/17 21:14 10/05/17 21:19 Nifedipine (Procardia XL) 90 mg DAILY ORAL 10/06/17 09:00 11/05/17 08:59 Ondansetron HCl (Zofran) 4 mg Q6H PRN IVP Nausea & Vomiting 10/06/17 00:15 11/05/17 00:14 10/06/17 00:32 Polyethylene Glycol (Miralax) 17 gm HSPRN PRN ORAL Constipation 10/05/17 22:00 11/04/17 21:59 Zolpidem Tartrate (Ambien) 5 mg HSPRN PRN ORAL Insomnia 10/05/17 22:00 10/12/17 21:59 Assessment/Plan Problem List: (1) Hyperkalemia ICD Codes: E87.5 - Hyperkalemia SNOMED: 87151479, 397608670 (2) Unsteady gait ICD Codes: R26.81 - Unsteadiness on feet SNOMED: 65027433, 136096088 (3) Dizziness ICD Codes: R42 - Dizziness and giddiness SNOMED: 371025750, 838461801 (4) ESRD (end stage renal disease) ICD Codes: N18.6 - End stage renal disease SNOMED: 82461212 (5) Diabetic nephropathy with proteinuria ICD Codes: E11.21 - Type 2 diabetes mellitus with diabetic nephropathy SNOMED: 90266756, 517345555 Assessment/Plan [email or web address] check K again HD by 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 LEXI THOMAS Oct 06, 2017 09:21
[2017-10-06] MEDS: Morphine Sulfate 4mg/ml Inj IVP PRN (09:56)
--- NOTE | 2017-10-06 11:19 | Diagnostic Imaging Report ---
Indication: Abdominal pain Comparison: None Single view of the abdomen obtained Findings: Bowel gas pattern is nonspecific. No mass, ectopic calcifications, or abnormal gas collections are identified. The bones are osteopenic. Degenerative changes of the lumbar spine noted. Impression: No acute findings
--- NOTE | 2017-10-06 12:44 | Consultation ---
Consult Note Consult Note asked to eval for dialysis management- 67-year-old female, history of end-stage renal disease, on dialysis Thursday, last dialysis was today, only finished 3 hours, as patient has been having dizziness and nausea. Patient states that she's been having dizziness and nausea since yesterday, worse with when she walks. Patient states that she fell, hit her head did not lose consciousness. Also complaining of left shoulder pain worse with any movement. Complaining of nausea and vomiting, no abdominal pain no diarrhea. No fever no chills. No chest pain or shortness of breath Past Medical History: No History, Except For Hx Cardiac Problems: Yes Hx Hypertension: Yes Hx Asthma: Yes Hx Diabetes: Yes - TYPE 2 DIABETES MELLITUS examined data reviewed been vomiting Assessment/Plan (1) ESRD (end stage renal disease) on dialysis has high K (2) h/o CAD (3) Hypertensive kidney disease (4) Diabetic nephropathy with proteinuria (5) h/o Anemia , low B12 and low Iron (6) Humeral head trauma (7) Dizziness and unsteady gait NPO HTN, OOC , meds adjusted Reglan PO HD in am Per orders VOLODYMYR DOUGLAS Oct 06, 2017 12:44
[2017-10-06] MEDS: Pantoprazole Inj IVP SCH (13:37)
--- NOTE | 2017-10-06 15:50 | Cardiology Report ---
APPROVED REPORT EXAM: Two-dimensional and M-mode echocardiogram with Doppler and color Doppler. INDICATION Dizziness M-Mode DIMENSIONS IVSd1.5 (0.7-1.1cm)Left Atrium (MM)5.0 (1.6-4.0cm) LVDd5.8 (3.5-5.6cm)Aortic Root2.8 (2.0-3.7cm) PWd1.3 (0.7-1.1cm)Aortic Cusp Exc.1.6 (1.5-2.0cm) LVDs4.2 (2.5-4.0cm) PWs1.6 cm Normal left ventricular chamber size, systolic function and wall motion. Left ventricular ejection fraction estimated to be 60-65%. Moderate to severe left ventricular hypertrophy. No evidence of pericardial or pleural effusion. Moderate left atrial enlargement by 2D. Mild right atrial enlargement by 2D. BICUSPID AORTIC VALVE Thickened mitral valve leaflets with normal excursion. Mild mitral annulus and aortic root calcification. Pulmonic valve is well visualized. Normal tricuspid valve structure. IVC is normal in size and collapsible with respiration. A color flow and spectral Doppler study was performed and revealed: Mild aortic regurgitation.PG 26 mmhg and MG 14 mmhg recorded across the bicuspid aortic valve Mild mitral regurgitation. Mitral inflow velocities indicates possible pseudo normalization pattern implying significant left ventricular diastolic dysfunction. Mild tricuspid regurgitation. Tricuspid systolic velocities suggests peak right ventricular systolic pressure of 39 mmHg Consistent with mild pulmonary hypertension. Pulmonic regurgitation present.
--- NOTE | 2017-10-06 16:30 | Cardiology Report ---
APPROVED REPORT EKG Measurement Heart [id number] Normal sinus rhythm Nonspecific ST and T wave abnormality Prolonged QT Abnormal ECG
--- NOTE | 2017-10-06 17:15 | Consultation ---
DATE OF CONSULTATION: 10/06/2017 ORTHOPEDIC CONSULTATION CONSULTING PHYSICIAN: Brandon Scherer M.D. REQUESTING PHYSICIAN: Makenna Daniel M.D. DIAGNOSIS: Left shoulder contusion. HISTORY OF PRESENT ILLNESS: The patient is a 67-year-old, right-hand dominant, [place]alan-speaking woman, who slipped and fell. She had significant left shoulder pain and was brought to the emergency room. PAST MEDICAL HISTORY: She has a past medical history significant for end-stage renal disease, hyperkalemia, and unstable gait. PHYSICAL EXAMINATION: On exam, she is wearing an ill-fitting sling on the left upper extremity. She has difficulty with abducting her elbow. A family member helped with language interpretation. Distal neurovascular examination is grossly intact. DIAGNOSTIC DATA: Radiographs, left shoulder revealed cystic formation, proximal humerus, but no acute evidence of fracture. ASSESSMENT AND PLAN: The patient has chronic changes in her left shoulder as evidenced by radiographs with cystic formation likely indicative of previous rotator cuff pathology. There was no acute fracture. She should wean herself from her sling as quickly as possible to diminish the onset of stiffness. Should she have a rotator cuff injury, it will become evident on subsequent examination and appropriate treatment measures can be taken at that time. Currently, no surgical intervention is warranted. She understands that she may move her shoulder as she feels she can tolerate. Thank you for the opportunity to consult. Brandon Scherer M.D. DR: Zach JOB#: [id number] CC:
[2017-10-06 18:00] VITALS: BP 160/79
[2017-10-06] MEDS ORDERED: LEVOTHYROXINE137 MCG ORAL (18:02)
[2017-10-06] MEDS ORDERED: ATORVASTATIN CA40 MG ORAL (18:02)
[2017-10-06] MEDS ORDERED: HYDRALAZINE HCL25 M2 PO (18:02)
[2017-10-06] MEDS ORDERED: NEURONTIN300 MG ORAL (18:02)
[2017-10-06] MEDS ORDERED: FUROSEMIDE20 M1 ORAL (18:02)
[2017-10-06] MEDS ORDERED: OYSTER SHELL 51 EAC1 PO (18:02)
[2017-10-06] MEDS ORDERED: ADALAT20 MG ORAL (18:02)
[2017-10-06] MEDS ORDERED: ISOSORBIDE MONO60 M1 PO (18:02)
[2017-10-06] MEDS ORDERED: FERROUS SULFAT325 M2 ORAL (18:02)
[2017-10-06 20:00] VITALS: BP 171/71
--- NOTE | 2017-10-06 20:28 | Consultation ---
Consult Note Consult Note ID job [id number] -- Also this note interchangeable as H&P if needed Carl Daniels Oct 06, 2017 20:28
[2017-10-06] MEDS ORDERED: Atorvastatin 80mg tab ORAL SCH (21:00)
--- NOTE | 2017-10-06 21:58 | General Progress Note ---
Assessment/Plan Assessment/Plan GI CONSULT Dictated N/V combined with a sensation of vertigo concerned with MANAGER MEDIA RELATIONS etiology Will check MRI brain in am consider Neurology opinion Possible EGD later this week, if symptoms persist Thank you Ramakrishna Leonard MD Subjective Allergies: Coded Allergies: No Known Allergies (Unverified , 05/12/17) Objective Last 24 Hour Vital Signs Date Time Temp Pulse Resp B/P (MAP) Pulse Ox O2 Delivery O2 Flow Rate FiO2 10/06/17 20:58 179/74 10/06/17 20:51 77 179/74 10/06/17 20:00 98.2 74 20 171/71 95 98.2 10/06/17 19:30 78 16 Room Air 21 10/06/17 18:00 73 160/79 10/06/17 16:00 73 10/06/17 12:00 72 10/06/17 09:18 84 171/66 10/06/17 09:18 171/66 10/06/17 09:17 84 171/66 10/06/17 08:00 75 10/06/17 06:36 84 17 Room Air 10/06/17 04:00 79 10/06/17 04:00 98.1 78 20 183/63 98 Room Air 98.1 10/06/17 03:09 84 183/66 10/06/17 00:00 98.2 84 18 183/66 98 Room Air 98.2 10/06/17 00:00 82 10/05/17 22:00 97.9 87 20 180/63 97 Room Air 97.9 Intake and Output 10/05/17 10/06/17 19:00 07:00 Intake Total 0 ml Output Total 400 ml Balance -400 ml Intake Oral 0 ml Output Emesis 400 ml # Voids 4 Laboratory Tests 10/06/17 06:40: White Blood Count 5.3, Red Blood Count 3.27L, Hemoglobin 10.8L, Hematocrit 31.8L , Mean Corpuscular Volume 97, Mean Corpuscular Hemoglobin 33.0H, Mean Corpuscular Hemoglobin Concent 34.0, Red Cell Distribution Width 11.9, Platelet Count 214, Mean Platelet Volume 7.4, Neutrophils (%) (Auto) 71.5, Lymphocytes (% ) (Auto) 16.3L, Monocytes (%) (Auto) 9.9, Eosinophils (%) (Auto) 1.1, Basophils (%) (Auto) 1.2, Sodium Level 136, Potassium Level 5.8H, Chloride Level 101, Carbon Dioxide Level 27, Anion Gap 8, Blood Urea Nitrogen 65H, Creatinine 5.7H, Estimat Glomerular Filtration Rate 7.4, Glucose Level 251H, Hemoglobin A1c 7.4H , Calcium Level 8.9, Total Bilirubin 0.6, Aspartate Amino Transf (AST/SGOT) 13L , Alanine Aminotransferase (ALT/SGPT) 8L, Alkaline Phosphatase 137H, C-Reactive Protein, Quantitative 2.5H, Total Protein 7.1, Albumin 3.2L, Globulin 3.9, Albumin/Globulin Ratio 0.8L, Triglycerides Level 233H, Cholesterol Level 132, LDL Cholesterol 59, HDL Cholesterol 41, Cholesterol/HDL Ratio 3.2L, Thyroid Stimulating Hormone (TSH) 1.070 Height (Feet): 5 Height (Inches): 0.00 Weight (Pounds): 160 RAMAKRISHNA LEONARD Oct 06, 2017 21:58
[2017-10-06 23:28] VITALS: BP 133/56
--- NOTE | 2017-10-06 23:45 | Consultation ---
DATE OF CONSULTATION: 10/06/2017 PHYSICAL MEDICINE REHABILITATION CONSULTATION CONSULTING PHYSICIAN: Adonay Fenton M.D. REQUESTING PHYSICIAN: Makenna Daniel M.D. TUBE BENDER: Mamie Alba M.D. DIRECTOR RELIGIOUS EDUCATION: Francis Falk M.D. CHIEF COMPLAINT: Difficulty with ambulation, activity of daily living in a patient with history of hemodialysis status post dizziness and fall. HISTORY OF PRESENT ILLNESS: The patient is a 67-year-old female with history of end-stage renal disease on hemodialysis on Thursday, Thursday and Thursday, has had some dizziness and apparently sustained a fall while being under the shower. The patient denies of losing any consciousness, apparently she fell on the left side and hit her left shoulder on the floor. The patient was brought to emergency room at [facility], was admitted to the hospital for further evaluation. CT scan of the head showed evidence of reported by radiologist as negative for acute intracranial bleed or mass affect however, reported ventriculomegaly being out of portion with possible hydrocephalus. Shoulder x-ray was negative for fracture. It showed osteoporosis. Chest x-ray reported with no changes compared with previous exam. Abdominal x-ray reported negative and had an echocardiogram reported with ejection fraction of 65%. 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 I was asked to evaluate the patient for rehabilitation. She has overall functional impairment and left shoulder pain and off and on headache. PAST MEDICAL AND SURGICAL HISTORY: 1. End-stage renal disease being on hemodialysis for the past six months. 2. History of coronary artery disease. 3. Hypertension. 4. Diabetes mellitus. 5. Diabetic nephropathy. 6. Left eye surgery, cataract. 7. Anemia. 8. Iron and B12 deficiency. 9. Hypothyroidism. MEDICATIONS: Neurontin 300 mg at bedtime, Reglan 5 mg q.i.d., Protonix 40 mg IV daily, clonidine p.r.n., Dilaudid p.r.n., Synthroid 50 mcg p.o. daily, lisinopril 20 mg daily, Lopressor 50 mg b.i.d., nifedipine 90 mg daily, heparin subcutaneously 5000 units b.i.d., insulin sliding scale, Zofran p.r.n., Tylenol p.r.n., MiraLAX p.r.n., Ambien p.r.n, p.r.n., and albuterol/ipratropium inhaler every six hours p.r.n. ALLERGIES: Not known drug allergies. FAMILY AND SOCIAL HISTORY: The patient is and has two daughters and four sons. She lives with her daughter in an apartment with 16 steps to enter. She was pretty much independent for ambulation and activity of daily living prior to this incident with no usage of any assistive device. Currently requires minimal assistance for bed mobility transfer and gait only about 5 feet distance with minimal to moderate assistance level. Ambulation is limited with dizziness. No history of tobacco, alcohol or illicit drugs. 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 Family history is positive for hypertension and diabetes. REVIEW OF SYSTEMS: CONSTITUTIONAL: No chills or fever. EYES: History of left eye surgery. Denies diplopia. ENT: Denies dysphagia. CARDIOVASCULAR: No chest pain. PULMONARY: No shortness of breath. GASTROINTESTINAL: No abdominal pain. GENITOURINARY: End-stage renal disease on hemodialysis. MUSCULOSKELETAL: Left shoulder pain. INTEGUMENTARY: No cancerous lesion. NEUROLOGIC: The patient with evidence of hydrocephalus, questionable in CT of the head and trauma to the head status post fall and dizziness. PHYSICAL EXAMINATION: GENERAL: No acute distress. VITAL SIGNS: Blood pressure 170/60, respiratory rate 18 per minute, heart rate 70 per minute, temperature 98 degrees Fahrenheit, and O2 saturation 98%. Height is 152 cm, weight is 73 kilograms, and body mass index 31.2. HEENT: Atraumatic and normocephalic. No facial droop. Extraocular movements intact. NECK: Supple with no lymphadenopathy. HEART: Regular rhythm and rate. LUNGS: Clear to auscultation bilaterally. ABDOMEN: Soft, nontender, and nondistended. Normal bowel sounds with no palpable or abnormal mass. EXTREMITIES: No pitting edema. No calf tenderness. No clubbing or cyanosis. SKIN: No rashes. NEUROLOGIC: The patient is alert, awake, and oriented. Movement of right upper and bilateral lower limb antigravity of the left limb, movement of left shoulder is strictly limited with pain with tenderness over the subacromial area. There is no warmth or erythema. Sensation has chronic numbness of both hands and feet. LABORATORY AND DIAGNOSTIC DATA: WBC 5.3, hemoglobin 10.8 and platelets 214. Sodium 136, potassium 5.8, BUN 65, creatinine 5.7 and glucose 251. AST and ALT 13 and 8. LDL 59. TSH 1.07. ASSESSMENT: The patient is a 67-year-old female with; 1. Status post fall having dizziness. 2. Head trauma. 3. Evidence of questionable hydrocephalus with CT scan of the head. 4. Gait abnormality. 5. Debility and functional decline. 6. Limb pain. 7. Left shoulder contusion versus ligament tear. 8. End-stage renal disease on hemodialysis. 9. Hypertension. 10. Clinical peripheral polyneuropathy and neuropathic pain. 11. Hypothyroidism. 12. Debility and functional decline and gait abnormality. RECOMMENDATION: The patient need to be seen by neurologist and neurosurgeon regarding finding of CT scan of head. I defer this to primary care physician's process for further evaluation of question of hydrocephalus in the CT scan. I will order a left shoulder MRI to evaluate for ligament injury in this patient or possible fracture. Physical therapy and occupational therapy evaluation and retraining and 24-hour nursing care. Physical therapy, full range of motion, transfer training, endurance, balance and gait training, fall prevention with appropriate assisted device. Occupational therapy for activities of daily living equipment, function and transfer evaluation and training of upper extremity range of motion and strengthening exercise. Nursing for evaluation of her bowel and bladder, medication regimen, skin care prevention and pressure ulcer, the patient and family education. I will order lidocaine patch and lidocaine cream to be applied to left shoulder for pain control. The patient is already on IV Dilaudid. I will discontinue Dilaudid and put her on Merced 5/325 mg one tablet every four hours p.r.n. for pain. Orthopedic surgery evaluation most likely is needed. Again, primary physician to process. Continue medical management per Medicine. Thank you for your consultation. Adonay Fenton M.D. DR: YAJAIRA JOB#: [id number] CC:
--- NOTE | 2017-10-07 01:15 | History and Physical Report ---
DATE OF ADMISSION: 10/05/2017 HISTORY OF PRESENT ILLNESS: The patient basically comes in status post fall while she was at the . She went back to the dialysis, however, was complaining of left shoulder pain and was told to come to the emergency room. The patient is also complaining of dizziness. She has end-stage renal disease, on hemodialysis. The patient also has a history of chronic headache and was complaining of nausea as well. The patient also had a possible humeral head fracture, but told me that the final report shows that there is no fracture, however, Dr. Scherer is contacted by to see the patient just to make sure Dr. Scherer was on the Orthopedic on-call panel today. PAST MEDICAL HISTORY: End-stage renal disease, on hemodialysis, history of hyperlipidemia, history of anemia, history of neuropathy, NIDDM, hypothyroidism, hypertension, and constipation. PAST SURGICAL HISTORY: Past surgeries related to dialysis. MEDICATIONS: Tylenol, Lipitor, Colace, Epogen, gabapentin, insulin Levemir, Levoxyl, lisinopril, and metoprolol. ALLERGIES: None. SOCIAL HISTORY: Denies history of alcohol or illicit drugs, does have history of smoking. The patient is at home with daughter. FAMILY HISTORY: History of diabetes and hypertension. REVIEW OF SYSTEMS: HEENT: Does have a headache, which is chronic. RESPIRATORY: Denies shortness of breath and denies cough. CARDIOVASCULAR: Denies chest pain. Noted to have orthopnea. MUSCULOSKELETAL: Does have right shoulder pain after the fall and back pain. CENTRAL NERVOUS SYSTEM: No change in vision or speech pattern. She is able to walk. PHYSICAL EXAMINATION: VITAL SIGNS: Temperature is 98.1 degrees and blood pressure 183/63. HEENT: PERRLA. NECK: Supple. No lymphadenopathy. CHEST: Clear to auscultation. CARDIOVASCULAR: Regular rate and rhythm. GASTROINTESTINAL: Soft, nontender, and nondistended. No organomegaly. EXTREMITIES: There is 1+ edema. NEUROLOGIC: Reflexes equal on both sides. She has mild decreased range of motion in the left shoulder due to pain, however, cranial nerves II through XII intact. She is able to move all extremities, just a mild decreased range of motion in the left shoulder due to pain. LABORATORY AND DIAGNOSTIC DATA: WBC of 7.6, hemoglobin 12.4, and platelets of 244. Sodium 139, potassium 5.3, BUN of 61, creatinine 5.6, and glucose of 181. ASSESSMENT AND PLAN: End-stage renal disease. The patient also vomited while in the hospital. I have asked Dr. Leonard as well as Dr. Bailey as well as Dr. Fenton and Dr. Falk as well as Dr. Scherer to see the patient for the above-mentioned diagnoses and treatment for dizziness. I have asked them to see the patient. Makenna Daniel M.D. DR: JULIETA JOB#: [id number] CC:
[2017-10-07 04:06] VITALS: BP 128/62
--- NOTE | 2017-10-07 05:45 | Consultation ---
DATE OF CONSULTATION: 10/06/2017 NOTE: POOR AUDIO HEMATOLOGY/ONCOLOGY CONSULTATION CONSULTING PHYSICIAN: Carl Daniels M.D. REQUESTING PHYSICIAN: Makenna Daniel M.D. REASON FOR CONSULTATION: Evaluation of anemia. IDENTIFYING DATA: Dear Dr. Daniel, The patient is a pleasant 67-year-old female with past medical history significant for end-stage renal disease, on hemodialysis three times a week, completed dialysis, who for approximately three hours has been having dizziness as well as nausea, has been seen by Nephrology Service, and dizziness began yesterday . No current loss of consciousness. No pulmonary embolism. No fever, no chills, no night sweats reported. The patient also noted to have contusion in the shoulder, no acute fracture, and recommended weaning herself from the sling. No surgical intervention is recommended. PAST MEDICAL HISTORY: As noted above. MEDICATIONS: Reviewed. ALLERGIES: No known drug allergies. REVIEW OF SYSTEMS: CONSTITUTIONAL: No fever, chills, or night sweats. SKIN: No rashes, bumps, or itching. HEENT: No headache, hearing or vision changes. BREASTS: No lumps, pain, or discharge. PULMONARY: No cough, sputum, or shortness of breath. GASTROINTESTINAL: No nausea, vomiting, or diarrhea. GENITOURINARY: No dysuria, frequency, or urgency. MUSCULOSKELETAL: No joint swelling, muscle pain, or trauma. PHYSICAL EXAMINATION: VITAL SIGNS: Reviewed. GENERAL: No distress. PULMONARY: Decreased breath sounds. CARDIOVASCULAR: Regular rate. No S3 or S4. ABDOMEN: Soft, nontender, and nondistended. EXTREMITIES: No cyanosis, swelling, or edema. LABORATORY AND DIAGNOSTIC DATA: WBC 8.3, hemoglobin 10.8, hematocrit 32, and platelet count . INR of 1. ASSESSMENT AND RECOMMENDATIONS: 1. Anemia due to underlying chronic disease. Continue to closely monitor. Unless hemoglobin less than 9, she does not require anemia workup. 2. Hyperkalemia. The patient given Kayexalate management per Nephrology Service. 3. End-stage renal disease, on hemodialysis three times a week. 4. History of coronary artery disease. 5. History of anemia, low B12, low iron . 6. Dizziness and unsteady gait. 7. Hemodialysis ordered for the morning. I appreciate the consultation. Carl Daniels M.D. DR: PAM JOB#: [id number] CC:
[2017-10-07] MEDS: NovoLOG Insulin Flexpen SUBQ SCH ×4 (05:52→21:10)
[2017-10-07 07:16] LABS: BASOPHILS % (AUTO) 1.2 % (0.0-2.0); EOSINOPHILS % (AUTO) 1.9 % (0.0-3.0); LYMPHOCYTES % (AUTO) 21.4 % (20.0-45.0); MEAN CORPUSCULAR VOLUME 97 FL (80-99); MONOCYTES % (AUTO) 9.5 % (1.0-10.0); PLATELET COUNT 232 K/UL (150-450); RED BLOOD COUNT 3.29 M/UL (4.20-5.40); RED CELL DISTRIBUTION WIDTH 11.5 % (11.6-14.8); WHITE BLOOD COUNT 4.8 K/UL (4.8-10.8)
[2017-10-07 08:00] VITALS: BP 147/65
[2017-10-07] MEDS: Pantoprazole Inj IVP SCH (08:11)
[2017-10-07] MEDS: Metoprolol Tartrate 50mg tab ORAL SCH ×2 (08:12→21:46)
[2017-10-07] MEDS: Lisinopril 20mg tab ORAL SCH (08:12)
[2017-10-07] MEDS: Heparin 5000 units/ml inj SUBQ SCH ×2 (08:14→21:11)
[2017-10-07 08:22] LABS: ALANINE AMINOTRANSFERASE 11 U/L (12-78); CREATININE 6.1 MG/DL (0.55-1.30)
[2017-10-07 08:24] LABS: % IRON SATURATION 37 % (15-50); IRON 82 ug/dL (50-175); TOTAL IRON BINDING CAPACITY 221 ug/dL (250-450)
[2017-10-07 08:26] LABS: ALBUMIN 3.2 G/DL (3.4-5.0); ANION GAP 10 mmol/L (5-15); ASPARTATE AMINO TRANSFERASE 15 U/L (15-37); BILIRUBIN,TOTAL 0.6 MG/DL (0.2-1.0); BLOOD UREA NITROGEN 71 mg/dL (7-18); CARBON DIOXIDE 25 MMOL/L (21-32); CHLORIDE 102 MMOL/L (98-107); FERRITIN 611 NG/ML (8-388); GAMMA GLUTAMYL TRANSPEPTIDASE 35 U/L (5-85); PHOSPHORUS 5.2 MG/DL (2.5-4.9); POTASSIUM 5.5 MMOL/L (3.5-5.1); SODIUM 137 MMOL/L (136-145)
[2017-10-07 08:27] LABS: ALKALINE PHOSPHATASE 139 U/L (46-116); CHOLESTEROL 134 MG/DL (< 200); HDL CHOLESTEROL 42 MG/DL (40-60); TRIGLYCERIDES 254 MG/DL (30-150)
--- NOTE | 2017-10-07 08:30 | Consultation ---
DATE OF CONSULTATION: 10/06/2017 NOTE: POOR AUDIO GASTROENTEROLOGY CONSULTATION CONSULTING PHYSICIAN: Ramakrishna Leonard M.D. CHIEF COMPLAINT: I was asked to see this patient by Dr. Makenna Daniel for evaluation of vomiting. HISTORY OF PRESENT ILLNESS: The patient is a pleasant 67-year-old woman, who comes in to the hospital after a fall with left shoulder injury as well as nausea and vomiting. The patient states that she had about two days of nausea and vomiting, which is yellow and without hematemesis or coffee-grounds emesis. She has no abdominal pain. She also states that she had dizzy spells with the vomiting, in fact she thinks her dizziness and vomiting episodes coincide. The dizziness has actually made her fall and had a left shoulder injury. She had in the past two years about two times per year episode of dizziness with nausea and vomiting. She had an endoscopy and colonoscopy about a year ago at [facility] and she cant recall significant findings on her examination. PAST MEDICAL HISTORY: History of end-stage renal disease, on dialysis, hyperkalemia, and history of unstable gait. SOCIAL HISTORY: The patient resides in [facility]. FAMILY HISTORY: Noncontributory. REVIEW OF SYSTEMS: Otherwise negative. PHYSICAL EXAMINATION: GENERAL: This is a pleasant woman, seen in her room. HEENT: Normocephalic and atraumatic. Sclerae are anicteric. Oropharynx clear. NECK: Supple. CHEST: Clear to auscultation. CARDIOVASCULAR: Revealed a regular rate. ABDOMEN: Soft and flat. Good bowel sounds. There is no organomegaly. EXTREMITIES: Revealed no edema. Left upper extremity was in a sling. LABORATORY AND DIAGNOSTIC DATA: Noted. Brain CT was noted. ASSESSMENT AND PLAN: This patient presents with a combination of dizziness and nausea and vomiting, which raised suspicion of vertigo as being the cause of the patient's vomiting, which is episodic. The patient should have advanced imaging of brain with MRI to rule out any lesions in the brain, which may be causing her symptoms. A neurology consultation can also be obtained. An endoscopy can be considered this week should her symptoms persist. In the meantime, I would give her antiemetics as needed and a proton pump inhibitor to block the acid related irritation. I will also check the stool occult blood. I will follow this patient with you closely. Thank you for asking me to participate in the care of this patient. Ramakrishna Leonard M.D. DR: OMID JOB#: [id number] CC: EDGAR
--- NOTE | 2017-10-07 09:37 | Pulmonology Progress Note ---
Assessment/Plan Problems: (1) Hyperkalemia (2) Unsteady gait (3) Dizziness (4) ESRD (end stage renal disease) (5) Diabetic nephropathy with proteinuria Assessment/Plan MRI of shoulder pending HD for today check electrolytes sliding scale diabetic diet symptomatic treatment med/surg Subjective ROS Limited/Unobtainable: No Constitutional: Reports: no symptoms HEENT: Repors: no symptoms Allergies: Coded Allergies: No Known Allergies (Unverified , 05/12/17) Objective Last 24 Hour Vital Signs Date Time Temp Pulse Resp B/P (MAP) Pulse Ox O2 Delivery O2 Flow Rate FiO2 10/07/17 04:06 98.6 72 18 128/62 100 Room Air 98.6 10/07/17 04:02 69 10/07/17 00:01 71 10/06/17 23:28 98.2 68 18 133/56 98 Room Air 98.2 10/06/17 20:58 179/74 10/06/17 20:51 77 179/74 10/06/17 20:00 98.2 74 20 171/71 95 98.2 10/06/17 19:50 78 10/06/17 19:30 78 16 Room Air 21 10/06/17 18:00 73 160/79 10/06/17 16:00 73 10/06/17 12:00 72 Intake and Output 10/06/17 10/07/17 18:59 06:59 Intake Total 116 ml Balance 116 ml Intake Oral 116 ml # Voids 1 Objective General Appearance: WD/WN Lines, tubes and drains: peripheral HEENT: normocephalic, atraumatic Neck: non-tender, normal alignment Respiratory/Chest: chest wall non-tender, lungs clear Breasts: no masses Cardiovascular/Chest: normal peripheral pulses, normal rate Abdomen: normal bowel sounds, non tender Genitourinary/Rectal: normal genital exam, heme negative stool Extremities: normal range of motion, non-tender Skin Exam: normal pigmentation Microbiology Date/Time Source Procedure Growth Status 10/05/17 14:45 Blood Blood Culture - Preliminary NO GROWTH AFTER 24 HOURS Resulted 10/05/17 14:35 Blood Blood Culture - Preliminary NO GROWTH AFTER 24 HOURS Resulted Laboratory Tests 10/07/17 06:35: White Blood Count 4.8, Red Blood Count 3.29L, Hemoglobin 11.0L, Hematocrit 32.0L , Mean Corpuscular Volume 97, Mean Corpuscular Hemoglobin 33.4H, Mean Corpuscular Hemoglobin Concent 34.4, Red Cell Distribution Width 11.5L, Platelet Count 232, Mean Platelet Volume 7.2, Neutrophils (%) (Auto) 66.0, Lymphocytes (%) (Auto) 21.4, Monocytes (%) (Auto) 9.5, Eosinophils (%) (Auto) 1.9, Basophils (%) (Auto) 1.2, Sodium Level 137, Potassium Level 5.5H, Chloride Level 102, Carbon Dioxide Level 25, Anion Gap 10, Blood Urea Nitrogen 71H, Creatinine 6.1H, Estimat Glomerular Filtration Rate 6.8, Glucose Level 161H, Hemoglobin A1c 6.1H, Uric Acid 7.5H, Calcium Level 9.0, Phosphorus Level 5.2H, Magnesium Level 2.1, Iron Level 82, Total Iron Binding Capacity 221L, Percent Iron Saturation 37, Unsaturated Iron Binding 139, Ferritin 611H, Total Bilirubin 0.6, Gamma Glutamyl Transpeptidase 35, Aspartate Amino Transf (AST/ SGOT) 15, Alanine Aminotransferase (ALT/SGPT) 11L, Alkaline Phosphatase 139H, Troponin I 0.018, Pro-B-Type Natriuretic Peptide < 5, Total Protein 7.4, Albumin 3.2L, Globulin 4.2, Triglycerides Level 254H, Cholesterol Level 134, LDL Cholesterol 65, HDL Cholesterol 42, Cholesterol/HDL Ratio 3.2L, Vitamin B12 Level 807, Folate 17.9, Thyroid Stimulating Hormone (TSH) 4.290H Current Medications Medications (Trade) Dose Ordered Sig/Toya Route PRN Reason Start Time Stop Time Status Last Admin Dose Admin Acetaminophen (Tylenol) 650 mg Q4H PRN ORAL fever 10/05/17 22:00 11/04/17 21:59 10/06/17 00:46 Albuterol/ Ipratropium (Albuterol/ Ipratropium) 3 ml Q6HRT PRN HHN dyspnea 10/05/17 22:00 10/10/17 21:59 Clonidine HCl (Catapres Tab) 0.1 mg Q4H PRN ORAL bp over 160 syst 10/06/17 12:45 11/05/17 12:44 10/06/17 20:58 Dextrose (Dextrose 50%) STAT PRN IV Hypoglycemia 3/5/18 22:00 11/04/17 21:59 Gabapentin (Neurontin) 300 mg BEDTIME ORAL 10/06/17 21:00 11/05/17 20:59 10/06/17 20:49 Heparin Sodium (Porcine) (Heparin 5000 units/ml) 5,000 units EVERY 12 HOURS SUBQ 10/06/17 09:00 11/05/17 08:59 10/07/17 08:14 Hydromorphone HCl (Dilaudid) 2 mg Q6H PRN IVP PAIN 4-10 10/06/17 12:45 10/13/17 12:44 Insulin Aspart (NovoLOG) BEFORE MEALS AND HS SUBQ 10/06/17 06:30 11/05/17 06:29 10/07/17 05:52 Levothyroxine Sodium (Synthroid) 50 mcg DAILY ORAL 10/06/17 09:00 11/05/17 08:59 10/07/17 08:12 Lidocaine (Lidoderm 5% PATCH) 1 patch DAILY@2100 TDERMAL 10/06/17 21:00 11/05/17 20:59 10/06/17 20:52 Lidocaine (Xylocaine 5% cream) 1 applic QID TOPIC 10/06/17 18:00 11/05/17 17:59 10/07/17 08:13 Lisinopril (Prinivil) 20 mg DAILY ORAL 10/06/17 09:00 11/05/17 08:59 10/06/17 09:18 Metoclopramide HCl (Reglan) 5 mg QID ORAL 10/06/17 13:30 11/05/17 13:29 10/07/17 08:12 Metoprolol Tartrate (Lopressor) 50 mg EVERY 12 HOURS ORAL 10/06/17 09:00 11/05/17 08:59 10/06/17 20:51 Nifedipine (Procardia XL) 90 mg DAILY ORAL 10/06/17 09:00 11/05/17 08:59 10/06/17 09:18 Ondansetron HCl (Zofran) 4 mg Q6H PRN IVP Nausea & Vomiting 10/06/17 00:15 11/05/17 00:14 10/06/17 12:32 Pantoprazole (Protonix) 40 mg DAILY IVP 10/06/17 13:15 11/05/17 13:14 10/07/17 08:11 Polyethylene Glycol (Miralax) 17 gm HSPRN PRN ORAL Constipation 10/05/17 22:00 11/04/17 21:59 Zolpidem Tartrate (Ambien) 5 mg HSPRN PRN ORAL Insomnia 10/05/17 22:00 10/12/17 21:59 LEXI THOMAS Oct 07, 2017 09:37
[2017-10-07] MEDS ORDERED: traMADol 50mg tab ORAL PRN (12:30)
--- NOTE | 2017-10-07 12:30 | Nephrology Progress Note ---
Assessment/Plan Problem List: (1) Hyperkalemia (2) ESRD (end stage renal disease) (3) Dizziness (4) Hypertensive kidney disease Assessment (1) ESRD (end stage renal disease) on dialysis has high K (2) h/o CAD (3) Hypertensive kidney disease (4) Diabetic nephropathy with proteinuria (5) h/o Anemia , low B12 and low Iron (6) Humeral head trauma (7) Dizziness and unsteady gait Plan start Renal diet HTN, OOC , meds adjusted Reglan PO HD today Per orders pain management PT OT med surg after HD Subjective ROS Limited/Unobtainable: No Constitutional: Reports: malaise, other - head ache Subjective no more vomiting Objective Objective Last 24 Hour Vital Signs Date Time Temp Pulse Resp B/P (MAP) Pulse Ox O2 Delivery O2 Flow Rate FiO2 10/07/17 12:06 97.0 10/07/17 08:00 71 10/07/17 08:00 97.0 77 18 147/65 99 Room Air 97.0 10/07/17 04:06 98.6 72 18 128/62 100 Room Air 98.6 10/07/17 04:02 69 10/07/17 00:01 71 10/06/17 23:28 98.2 68 18 133/56 98 Room Air 98.2 10/06/17 20:58 179/74 10/06/17 20:51 77 179/74 10/06/17 20:00 98.2 74 20 171/71 95 98.2 10/06/17 19:50 78 10/06/17 19:30 78 16 Room Air 21 10/06/17 18:00 73 160/79 10/06/17 16:00 73 Intake and Output 10/06/17 10/07/17 19:00 07:00 Intake Total 116 ml Balance 116 ml Intake Oral 116 ml # Voids 1 Current Medications Medications (Trade) Dose Ordered Sig/Toya Route PRN Reason Start Time Stop Time Status Last Admin Dose Admin Acetaminophen (Tylenol) 650 mg Q4H PRN ORAL fever 10/05/17 22:00 11/04/17 21:59 10/06/17 00:46 Acetaminophen (Tylenol) 650 mg TID ORAL 10/07/17 13:00 11/06/17 12:59 10/07/17 12:06 Albuterol/ Ipratropium (Albuterol/ Ipratropium) 3 ml Q6HRT PRN HHN dyspnea 10/05/17 22:00 10/10/17 21:59 Clonidine HCl (Catapres Tab) 0.1 mg Q4H PRN ORAL bp over 160 syst 10/06/17 12:45 11/05/17 12:44 10/06/17 20:58 Dextrose (Dextrose 50%) STAT PRN IV Hypoglycemia 10/05/17 22:00 11/04/17 21:59 Gabapentin (Neurontin) 300 mg BEDTIME ORAL 10/06/17 21:00 11/05/17 20:59 10/06/17 20:49 Heparin Sodium (Porcine) (Heparin 5000 units/ml) 5,000 units EVERY 12 HOURS SUBQ 10/06/17 09:00 11/05/17 08:59 10/07/17 08:14 Insulin Aspart (NovoLOG) BEFORE MEALS AND HS SUBQ 10/06/17 06:30 11/05/17 06:29 10/07/17 12:08 Lansoprazole (Prevacid) 30 mg DAILY ORAL 10/07/17 12:30 11/06/17 12:29 UNV Levothyroxine Sodium (Synthroid) 50 mcg DAILY ORAL 10/06/17 09:00 11/05/17 08:59 10/07/17 08:12 Lidocaine (Lidoderm 5% PATCH) 1 patch DAILY@2100 TDERMAL 10/06/17 21:00 11/05/17 20:59 10/06/17 20:52 Lidocaine (Xylocaine 5% cream) 1 applic QID TOPIC 10/06/17 18:00 11/05/17 17:59 10/07/17 12:06 Lisinopril (Prinivil) 20 mg DAILY ORAL 10/06/17 09:00 11/05/17 08:59 10/06/17 09:18 Metoclopramide HCl (Reglan) 5 mg AC+HS ORAL 10/07/17 16:30 11/05/17 13:29 UNV Metoprolol Tartrate (Lopressor) 50 mg EVERY 12 HOURS ORAL 10/06/17 09:00 11/05/17 08:59 10/06/17 20:51 Nifedipine (Procardia XL) 90 mg DAILY ORAL 10/06/17 09:00 11/05/17 08:59 10/06/17 09:18 Ondansetron HCl (Zofran) 4 mg Q6H PRN IVP Nausea & Vomiting 10/06/17 00:15 11/05/17 00:14 10/06/17 12:32 Polyethylene Glycol (Miralax) 17 gm HSPRN PRN ORAL Constipation 10/05/17 22:00 11/04/17 21:59 Zolpidem Tartrate (Ambien) 5 mg HSPRN PRN ORAL Insomnia 10/05/17 22:00 10/12/17 21:59 Laboratory Tests 10/07/17 06:35: White Blood Count 4.8, Red Blood Count 3.29L, Hemoglobin 11.0L, Hematocrit 32.0L , Mean Corpuscular Volume 97, Mean Corpuscular Hemoglobin 33.4H, Mean Corpuscular Hemoglobin Concent 34.4, Red Cell Distribution Width 11.5L, Platelet Count 232, Mean Platelet Volume 7.2, Neutrophils (%) (Auto) 66.0, Lymphocytes (%) (Auto) 21.4, Monocytes (%) (Auto) 9.5, Eosinophils (%) (Auto) 1.9, Basophils (%) (Auto) 1.2, Sodium Level 137, Potassium Level 5.5H, Chloride Level 102, Carbon Dioxide Level 25, Anion Gap 10, Blood Urea Nitrogen 71H, Creatinine 6.1H, Estimat Glomerular Filtration Rate 6.8, Glucose Level 161H, Hemoglobin A1c 6.1H, Uric Acid 7.5H, Calcium Level 9.0, Phosphorus Level 5.2H, Magnesium Level 2.1, Iron Level 82, Total Iron Binding Capacity 221L, Percent Iron Saturation 37, Unsaturated Iron Binding 139, Ferritin 611H, Total Bilirubin 0.6, Gamma Glutamyl Transpeptidase 35, Aspartate Amino Transf (AST/ SGOT) 15, Alanine Aminotransferase (ALT/SGPT) 11L, Alkaline Phosphatase 139H, Troponin I 0.018, Pro-B-Type Natriuretic Peptide < 5, Total Protein 7.4, Albumin 3.2L, Globulin 4.2, Triglycerides Level 254H, Cholesterol Level 134, LDL Cholesterol 65, HDL Cholesterol 42, Cholesterol/HDL Ratio 3.2L, Vitamin B12 Level 807, Folate 17.9, Thyroid Stimulating Hormone (TSH) 4.290H Height (Feet): 5 Height (Inches): 0.00 Weight (Pounds): 160 Cardiovascular: normal rate Respiratory/Chest: lungs clear Abdomen: soft VOLODYMYR DOUGLAS Oct 07, 2017 12:30
[2017-10-07] MEDS ORDERED: Docusate 100mg cap ORAL SCH (13:00)
[2017-10-07] MEDS ORDERED: Albuterol/Ipratropium 3ml neb HHN PRN (14:33)
[2017-10-07] MEDS ORDERED: Zolpidem 5mg tab ORAL PRN (14:35)
[2017-10-07] MEDS ORDERED: Miralax 17gm pkt ORAL PRN (14:35)
[2017-10-07 15:00] VITALS: BP 144/70
[2017-10-07 17:30] VITALS: BP 142/68
[2017-10-07] MEDS: Docusate 100mg cap ORAL SCH (18:02)
[2017-10-07] MEDS: traMADol 50mg tab ORAL PRN (18:08)
--- NOTE | 2017-10-07 19:17 | General Progress Note ---
Progress Note Progress Note REHAB FOLLOW UP PROGRESS NOTE: SUBJECTIVE: AT BED, LEFT SHOULDER PAIN AND RESTRICTED ROM. NO BM, PER PT >> Supine to Sit * Minimal Assistance Bed Mobility Assistive Devices * Bed Rail Bed Mobility Comments * LIMITED BY SEVERE DIZZINESS Sit to Stand * Minimal Assistance Bed to Chair/Wheelchair * Minimal Assistance Distance * 25ftx 2 Assistance * Minimal Assistance * Moderate Assistance Assistive Device * Front Wheel Walker Gait Comment * very unsteady, PER OT >> MIN A DRESSING REVIEW OF SYSTEMS: C EYES: History of left eye surgery. Denies diplopia. ENT : Denies dysphagia. CARDIOVASCULAR: No chest pain. PULMONARY: No shortness of breath. GASTROINTESTINAL: No abdominal pain. GENITOURINARY: End-stage renal disease on hemodialysis. MUSCULOSKELETAL: Left shoulder pain.NEUROLOGIC: The patient with evidence of hydrocephalus, questionable in CT of the head and trauma to the head status post fall and dizziness. PHYSICAL EXAMINATION: VITAL SIGNS: NOTED PER CHART, HEENT: No facial droop. NECK: Supple HEART: Regular rhythm and rate. LUNGS: Clear to auscultation bilaterally. ABDOMEN: Soft, nontender, and nondistended. Normal bowel sounds with no palpable or abnormal mass. EXTREMITIES: No pitting edema. No calf tenderness. No clubbing or cyanosis. NEUROLOGIC: The patient is alert, awake, and oriented. Movement of right upper and bilateral lower limb antigravity of the left limb, movement of left shoulder is strictly limited with pain LABORATORY AND DIAGNOSTIC DATA: NOTED PER CHART. ASSESSMENT: The patient is a 67-year-old female with; 1. Status post fall having dizziness. 2. Head trauma. 3. Evidence of questionable hydrocephalus with CT scan of the head. 4. Gait abnormality. 5. Debility and functional decline. 6. Limb pain. 7. Left shoulder contusion versus ligament tear. 8. End-stage renal disease on hemodialysis. 9. Hypertension. 10. Clinical peripheral polyneuropathy and neuropathic pain. 11. Hypothyroidism. 12. Debility and functional decline and gait abnormality. RECOMMENDATION: 24-hour nursing care. Physical therapy, full range of motion, transfer training, endurance, balance and gait training, fall prevention with appropriate assisted device. Occupational therapy for activities of daily living equipment, function and transfer training of upper extremity range of motion and strengthening exercise. Nursing for her bowel and bladder, medication regimen, skin care prevention and pressure ulcer, the patient and family education. lidocaine patch and lidocaine cream to be applied to left shoulder for pain control. ON ULTRAM left shoulder MRI PENDING SEEN BY ORTHO >> F/U. neurologist EVRACHID >> D/W PMD. Continue medical management per Medicine. KURT KAYE M.D. Oct 07, 2017 19:17
[2017-10-07 20:00] VITALS: BP 160/64
--- NOTE | 2017-10-07 21:16 | General Progress Note ---
Assessment/Plan Assessment/Plan Assessment N/V combined with a sensation of vertigo concerned with [employer] etiology Recommendations Await brain MRI consider Neurology opinion Possible EGD if symptoms persist Subjective Allergies: Coded Allergies: No Known Allergies (Unverified , 05/12/17) Subjective seen this am feels ok noted nausea and dizziness today while ambulating MRI pending Objective Last 24 Hour Vital Signs Date Time Temp Pulse Resp B/P (MAP) Pulse Ox O2 Delivery O2 Flow Rate FiO2 10/07/17 17:30 Room Air 10/07/17 17:30 98.4 16 142/68 Room Air 98.4 10/07/17 15:00 98.0 72 16 144/70 Room Air 98.0 10/07/17 15:00 Room Air 10/07/17 12:06 97.0 10/07/17 08:00 71 10/07/17 08:00 97.0 77 18 147/65 99 Room Air 97.0 10/07/17 07:10 76 16 Room Air 21 10/07/17 04:06 98.6 72 18 128/62 100 Room Air 98.6 10/07/17 04:02 69 10/07/17 00:01 71 10/06/17 23:28 98.2 68 18 133/56 98 Room Air 98.2 Intake and Output 10/06/17 10/07/17 19:00 07:00 Intake Total 116 ml Balance 116 ml Intake Oral 116 ml # Voids 1 Laboratory Tests 10/07/17 06:35: White Blood Count 4.8, Red Blood Count 3.29L, Hemoglobin 11.0L, Hematocrit 32.0L , Mean Corpuscular Volume 97, Mean Corpuscular Hemoglobin 33.4H, Mean Corpuscular Hemoglobin Concent 34.4, Red Cell Distribution Width 11.5L, Platelet Count 232, Mean Platelet Volume 7.2, Neutrophils (%) (Auto) 66.0, Lymphocytes (%) (Auto) 21.4, Monocytes (%) (Auto) 9.5, Eosinophils (%) (Auto) 1.9, Basophils (%) (Auto) 1.2, Sodium Level 137, Potassium Level 5.5H, Chloride Level 102, Carbon Dioxide Level 25, Anion Gap 10, Blood Urea Nitrogen 71H, Creatinine 6.1H, Estimat Glomerular Filtration Rate 6.8, Glucose Level 161H, Hemoglobin A1c 6.1H, Uric Acid 7.5H, Calcium Level 9.0, Phosphorus Level 5.2H, Magnesium Level 2.1, Iron Level 82, Total Iron Binding Capacity 221L, Percent Iron Saturation 37, Unsaturated Iron Binding 139, Ferritin 611H, Total Bilirubin 0.6, Gamma Glutamyl Transpeptidase 35, Aspartate Amino Transf (AST/ SGOT) 15, Alanine Aminotransferase (ALT/SGPT) 11L, Alkaline Phosphatase 139H, Troponin I 0.018, C-Reactive Protein, Quantitative 5.0H, Pro-B-Type Natriuretic Peptide < 5, Total Protein 7.4, Albumin 3.2L, Globulin 4.2, Triglycerides Level 254H, Cholesterol Level 134, LDL Cholesterol 65, HDL Cholesterol 42, Cholesterol /HDL Ratio 3.2L, Vitamin B12 Level 807, Folate 17.9, Thyroid Stimulating Hormone (TSH) 4.290H Height (Feet): 5 Height (Inches): 0.00 Weight (Pounds): 160 Objective WDWN NCAT supple CTA RRR abd soft ND no edema non focal LUE sling JANELL SERNA Oct 07, 2017 21:15
[2017-10-08] VITALS: BP 162/68
--- NOTE | 2017-10-08 01:57 | General Progress Note ---
Assessment/Plan Assessment/Plan 1. Anemia due to underlying chronic disease. --> Continue to closely monitor. --> Unless hemoglobin less than 9, she does not require anemia workup. --> Anemia has been mild and hgb >11 2. Hyperkalemia. --> The patient given Kayexalate management per Nephrology Service. 3. End-stage renal disease, on hemodialysis three times a week. 4. History of coronary artery disease. 5. History of anemia, low B12, low iron. --> Iron levels 82 6. Dizziness and unsteady gait. 7. Hemodialysis ordered for the morning. Subjective Date patient seen: Oct 07, 2017 Allergies: Coded Allergies: No Known Allergies (Unverified , 05/12/17) Subjective Pending HD. H/H stable. Objective Last 24 Hour Vital Signs Date Time Temp Pulse Resp B/P (MAP) Pulse Ox O2 Delivery O2 Flow Rate FiO2 10/08/17 00:37 162/68 10/08/17 00:00 98.3 16 162/68 98 Room Air 98.3 10/07/17 21:46 83 160/64 10/07/17 20:00 98.4 83 17 160/64 98 Room Air 98.4 10/07/17 17:30 Room Air 10/07/17 17:30 98.4 16 142/68 Room Air 98.4 10/07/17 15:00 98.0 72 16 144/70 Room Air 98.0 10/07/17 15:00 Room Air 10/07/17 12:06 97.0 10/07/17 08:00 71 10/07/17 08:00 97.0 77 18 147/65 99 Room Air 97.0 10/07/17 07:10 76 16 Room Air 21 10/07/17 04:06 98.6 72 18 128/62 100 Room Air 98.6 10/07/17 04:02 69 Intake and Output 10/07/17 10/08/17 19:00 07:00 Output Total 1454 ml Balance -1454 ml Hemodialysis UF 1454 ml Laboratory Tests 10/07/17 06:35: White Blood Count 4.8, Red Blood Count 3.29L, Hemoglobin 11.0L, Hematocrit 32.0L , Mean Corpuscular Volume 97, Mean Corpuscular Hemoglobin 33.4H, Mean Corpuscular Hemoglobin Concent 34.4, Red Cell Distribution Width 11.5L, Platelet Count 232, Mean Platelet Volume 7.2, Neutrophils (%) (Auto) 66.0, Lymphocytes (%) (Auto) 21.4, Monocytes (%) (Auto) 9.5, Eosinophils (%) (Auto) 1.9, Basophils (%) (Auto) 1.2, Sodium Level 137, Potassium Level 5.5H, Chloride Level 102, Carbon Dioxide Level 25, Anion Gap 10, Blood Urea Nitrogen 71H, Creatinine 6.1H, Estimat Glomerular Filtration Rate 6.8, Glucose Level 161H, Hemoglobin A1c 6.1H, Uric Acid 7.5H, Calcium Level 9.0, Phosphorus Level 5.2H, Magnesium Level 2.1, Iron Level 82, Total Iron Binding Capacity 221L, Percent Iron Saturation 37, Unsaturated Iron Binding 139, Ferritin 611H, Total Bilirubin 0.6, Gamma Glutamyl Transpeptidase 35, Aspartate Amino Transf (AST/ SGOT) 15, Alanine Aminotransferase (ALT/SGPT) 11L, Alkaline Phosphatase 139H, Troponin I 0.018, C-Reactive Protein, Quantitative 5.0H, Pro-B-Type Natriuretic Peptide < 5, Total Protein 7.4, Albumin 3.2L, Globulin 4.2, Triglycerides Level 254H, Cholesterol Level 134, LDL Cholesterol 65, HDL Cholesterol 42, Cholesterol /HDL Ratio 3.2L, Vitamin B12 Level 807, Folate 17.9, Thyroid Stimulating Hormone (TSH) 4.290H Height (Feet): 5 Height (Inches): 0.00 Weight (Pounds): 160 General Appearance: no apparent distress Respiratory/Chest: decreased breath sounds Abdomen: non tender, soft Edema: trace edema Skin: warm/dry Carl Daniels Oct 08, 2017 01:56
[2017-10-08 04:00] VITALS: BP 151/66
[2017-10-08] MEDS: NovoLOG Insulin Flexpen SUBQ SCH ×4 (05:43→21:28)
[2017-10-08 08:09] LABS: BASOPHILS % (AUTO) 1.4 % (0.0-2.0); EOSINOPHILS % (AUTO) 1.4 % (0.0-3.0); HEMATOCRIT 30.1 % (37.0-47.0); HEMOGLOBIN 10.6 G/DL (12.0-16.0); LYMPHOCYTES % (AUTO) 16.1 % (20.0-45.0); MEAN CORPUSCULAR VOLUME 95 FL (80-99); MONOCYTES % (AUTO) 11.3 % (1.0-10.0); NEUTROPHILS % (AUTO) 69.8 % (45.0-75.0); PLATELET COUNT 233 K/UL (150-450); RED BLOOD COUNT 3.16 M/UL (4.20-5.40); RED CELL DISTRIBUTION WIDTH 11.1 % (11.6-14.8); WHITE BLOOD COUNT 5.3 K/UL (4.8-10.8)
[2017-10-08 08:30] VITALS: BP 171/70
[2017-10-08 08:58] LABS: ALANINE AMINOTRANSFERASE 9 U/L (12-78); ALBUMIN 3.3 G/DL (3.4-5.0); ALBUMIN/GLOBULIN RATIO 0.8 (1.0-2.7); ALKALINE PHOSPHATASE 138 U/L (46-116); ANION GAP 5 mmol/L (5-15); ASPARTATE AMINO TRANSFERASE 12 U/L (15-37); BILIRUBIN,TOTAL 0.6 MG/DL (0.2-1.0); BLOOD UREA NITROGEN 50 mg/dL (7-18); CALCIUM 8.8 MG/DL (8.5-10.1); CARBON DIOXIDE 35 MMOL/L (21-32); CHLORIDE 96 MMOL/L (98-107); CREATININE 4.9 MG/DL (0.55-1.30); POTASSIUM 4.5 MMOL/L (3.5-5.1); SODIUM 136 MMOL/L (136-145)
[2017-10-08] MEDS ORDERED: Lisinopril 20mg tab ORAL SCH (09:00)
[2017-10-08] MEDS: Metoprolol Tartrate 50mg tab ORAL SCH ×2 (10:56→21:25)
[2017-10-08] MEDS: Docusate 100mg cap ORAL SCH ×3 (10:56→18:18)
[2017-10-08] MEDS: Heparin 5000 units/ml inj SUBQ SCH ×2 (10:58→21:27)
--- NOTE | 2017-10-08 11:13 | Diagnostic Imaging Report ---
Indication: Dizziness nausea Technique: The head was imaged in a 1.5 Bre magnet. Sequences obtained include sagittal and axial T1 FLAIR, axial T2 fast spin echo with fat saturation, axial T2 FLAIR, diffusion and ADC map. Comparison: None Findings: Study is limited by motion. There is moderate prominence of the sulci, ventricles, and basal cisterns consistent with atrophy. Moderate, nonspecific T2 hyperintensity noted within white matter. This may be due to chronic small vessel disease. There is no restricted diffusion. Mclean-white differentiation is normal. There is no mass effect, midline shift, edema, or hemorrhage. There are no abnormal extra-axial or intra-axial fluid collections. The corpus callosum and sella are unremarkable. The brainstem and cerebellum are unremarkable. Bone marrow signal within the visualized osseous structures appears age appropriate and unremarkable otherwise. There is mucosal thickening within the ethmoid sinuses. Impression: No acute intracranial findings. Moderate atrophy and evidence of chronic small vessel disease involving white matter tracts. Mild ethmoid sinusitis Study limited by motion
--- NOTE | 2017-10-08 11:30 | Diagnostic Imaging Report ---
Indication: Shoulder pain Technique: MRI of the left shoulder obtained in a 1.5 Bre magnet. Pulse sequences obtained include axial and coronal proton fast spin-echo with fat saturation, sagittal T1 fast spin-echo, sagittal and coronal T2 fast spin-echo with fat saturation. Findings: There is an approximately 6 mm focus of T2 hyperintensity at the footprint of the supraspinatus tendon consistent with a full-thickness tear. This is associated 2 cm proximal retraction of the tendon. The entire rotator cuff appears heterogeneous with intermediate signal intensity and enlargement indicative of a tendinopathy. Some heterogeneous mottled fatty signal and some T2 hyperintense edematous signal noted within portions of the rotator cuff muscles including the posterior belly of the infraspinatus/teres minor as well as the medial aspect of subscapularis. This may be associated with the rotator cuff tendinopathy. There is a small joint effusion. The glenoid labrum appears abnormal in signal on multiple sequences especially the superior labrum. Labrum is likely torn or degenerated. In addition, 1.1 cm septated cystic focus demonstrated just above the superior labrum adjacent to and anterior to the the supraspinatus tendon probably representing a para labral cyst. The long head of the biceps tendon appears enlarged and there may be a tendinopathy present. The intra-articular portion of the biceps tendon is not seen well no evidence of detachment well seen on this exam.There is moderate osteoarthritis of the acromioclavicular joint with spur formation and irregularity distended joint capsule. Cystic changes also noted in the greater tuberosity. There is some motion present limiting evaluation. IMPRESSION: Full thickness tear of the supraspinatus tendon with a 2 cm proximal retraction of the musculotendinous junction. Diffuse, moderate rotator cuff tendinopathy with enlargement and intermediate heterogeneous signal involving all portions of the rotator cuff. Scattered likely associated heterogeneous signal within portions of the rotator cuff muscles as described above. 1 cm septated superior para labral cyst adjacent to the supraspinatus tendon. Moderate degeneration of the glenoid labrum. Arthropathy of the AC joint
--- NOTE | 2017-10-08 13:20 | Neurology Progress Note ---
Interim History Interim History ROS Limited/Unobtainable: No Objective Physical Exam Last Vital Signs Date Time Temp Pulse Resp B/P (MAP) Pulse Ox O2 Delivery O2 Flow Rate FiO2 10/08/17 10:56 72 164/65 10/08/17 08:30 98.2 17 95 Room Air 98.2 10/08/17 08:23 21 Laboratory Tests Test 10/08/17 07:20 10/08/17 07:50 Sodium Level 136 MMOL/L (136-145) Potassium Level 4.5 MMOL/L (3.5-5.1) Chloride Level 96 MMOL/L (98-107) L Carbon Dioxide Level 35 MMOL/L (21-32) H Anion Gap 5 mmol/L (5-15) Blood Urea Nitrogen 50 mg/dL (7-18) H Creatinine 4.9 MG/DL (0.55-1.30) H Estimat Glomerular Filtration Rate 8.8 mL/min (>60) Glucose Level 160 MG/DL (74-106) H Calcium Level 8.8 MG/DL (8.5-10.1) Phosphorus Level 6.0 MG/DL (2.5-4.9) H Magnesium Level 2.2 MG/DL (1.8-2.4) Total Bilirubin 0.6 MG/DL (0.2-1.0) Aspartate Amino Transf (AST/SGOT) 12 U/L (15-37) L Alanine Aminotransferase (ALT/SGPT) 9 U/L (12-78) L Alkaline Phosphatase 138 U/L (46-116) H Pro-B-Type Natriuretic Peptide 56578 pg/mL (0-125) H Total Protein 7.4 G/DL (6.4-8.2) Albumin 3.3 G/DL (3.4-5.0) L Globulin 4.1 g/dL Albumin/Globulin Ratio 0.8 (1.0-2.7) L White Blood Count 5.3 K/UL (4.8-10.8) Red Blood Count 3.16 M/UL (4.20-5.40) L Hemoglobin 10.6 G/DL (12.0-16.0) L Hematocrit 30.1 % (37.0-47.0) L Mean Corpuscular Volume 95 FL (80-99) Mean Corpuscular Hemoglobin 33.6 PG (27.0-31.0) H Mean Corpuscular Hemoglobin Concent 35.3 G/DL (32.0-36.0) Red Cell Distribution Width 11.1 % (11.6-14.8) L Platelet Count 233 K/UL (150-450) Mean Platelet Volume 7.3 FL (6.5-10.1) Neutrophils (%) (Auto) 69.8 % (45.0-75.0) Lymphocytes (%) (Auto) 16.1 % (20.0-45.0) L Monocytes (%) (Auto) 11.3 % (1.0-10.0) H Eosinophils (%) (Auto) 1.4 % (0.0-3.0) Basophils (%) (Auto) 1.4 % (0.0-2.0) Impression/Recommendations Recommendations #[id number] JOEL RIZO Oct 08, 2017 13:20
--- NOTE | 2017-10-08 15:34 | Nephrology Progress Note ---
Assessment/Plan Problem List: (1) Hyperkalemia (2) ESRD (end stage renal disease) (3) Dizziness (4) Hypertensive kidney disease Assessment (1) ESRD (end stage renal disease) on dialysis has high K (2) h/o CAD (3) Hypertensive kidney disease (4) Diabetic nephropathy with proteinuria (5) h/o Anemia , low B12 and low Iron (6) Humeral head trauma (7) Dizziness and unsteady gait Plan start Renal diet HTN, OOC , meds adjusted Reglan PO HD in am Per orders pain management PT OT med surg after HD Subjective ROS Limited/Unobtainable: No Subjective no more vomiting Objective Objective Last 24 Hour Vital Signs Date Time Temp Pulse Resp B/P (MAP) Pulse Ox O2 Delivery O2 Flow Rate FiO2 10/08/17 10:56 72 164/65 10/08/17 10:55 72 164/65 10/08/17 10:55 164/65 10/08/17 08:30 98.2 68 17 171/70 95 Room Air 98.2 10/08/17 08:23 74 18 Room Air 21 10/08/17 05:32 98.3 10/08/17 04:00 98.3 71 18 151/66 98 Room Air 98.3 10/08/17 00:37 162/68 10/08/17 00:00 98.3 16 162/68 98 Room Air 98.3 10/07/17 21:46 83 160/64 10/07/17 20:00 98.4 83 17 160/64 98 Room Air 98.4 10/07/17 17:30 Room Air 10/07/17 17:30 98.4 16 142/68 Room Air 98.4 Intake and Output 10/07/17 10/08/17 19:00 07:00 Output Total 1454 ml Balance -1454 ml Hemodialysis UF 1454 ml # Voids 1 Laboratory Tests 10/08/17 07:20: Sodium Level 136, Potassium Level 4.5, Chloride Level 96L, Carbon Dioxide Level 35H, Anion Gap 5, Blood Urea Nitrogen 50H, Creatinine 4.9H, Estimat Glomerular Filtration Rate 8.8, Glucose Level 160H, Calcium Level 8.8, Phosphorus Level 6.0H, Magnesium Level 2.2, Total Bilirubin 0.6, Aspartate Amino Transf (AST/SGOT ) 12L, Alanine Aminotransferase (ALT/SGPT) 9L, Alkaline Phosphatase 138H, Pro-B- Type Natriuretic Peptide [id number], Total Protein 7.4, Albumin 3.3L, Globulin 4.1, Albumin/Globulin Ratio 0.8L 10/08/17 07:50: White Blood Count 5.3, Red Blood Count 3.16L, Hemoglobin 10.6L, Hematocrit 30.1L , Mean Corpuscular Volume 95, Mean Corpuscular Hemoglobin 33.6H, Mean Corpuscular Hemoglobin Concent 35.3, Red Cell Distribution Width 11.1L, Platelet Count 233, Mean Platelet Volume 7.3, Neutrophils (%) (Auto) 69.8, Lymphocytes (%) (Auto) 16.1L, Monocytes (%) (Auto) 11.3H, Eosinophils (%) (Auto ) 1.4, Basophils (%) (Auto) 1.4 Height (Feet): 5 Height (Inches): 0.00 Weight (Pounds): 160 General Appearance: no apparent distress Objective no change VOLODYMYR DOUGLAS Oct 08, 2017 15:34
--- NOTE | 2017-10-08 18:18 | Pulmonology Progress Note ---
Assessment/Plan Problems: (1) Hyperkalemia (2) Unsteady gait (3) Dizziness (4) ESRD (end stage renal disease) (5) Diabetic nephropathy with proteinuria Assessment/Plan HD as per nephrology check electrolytes sliding scale diabetic diet symptomatic treatment med/surg pt/ot dc planning Subjective ROS Limited/Unobtainable: No Constitutional: Reports: no symptoms HEENT: Repors: no symptoms Allergies: Coded Allergies: No Known Allergies (Unverified , 05/12/17) Objective Last 24 Hour Vital Signs Date Time Temp Pulse Resp B/P (MAP) Pulse Ox O2 Delivery O2 Flow Rate FiO2 10/08/17 10:56 72 164/65 10/08/17 10:55 72 164/65 10/08/17 10:55 164/65 10/08/17 08:30 98.2 68 17 171/70 95 Room Air 98.2 10/08/17 08:23 74 18 Room Air 21 10/08/17 05:32 98.3 10/08/17 04:00 98.3 71 18 151/66 98 Room Air 98.3 10/08/17 00:37 162/68 10/08/17 00:00 98.3 16 162/68 98 Room Air 98.3 10/07/17 21:46 83 160/64 10/07/17 20:00 98.4 83 17 160/64 98 Room Air 98.4 Intake and Output 10/07/17 10/08/17 19:00 07:00 Output Total 1454 ml Balance -1454 ml Hemodialysis UF 1454 ml # Voids 1 Objective General Appearance: WD/WN Lines, tubes and drains: peripheral HEENT: normocephalic, atraumatic Neck: non-tender, normal alignment Respiratory/Chest: chest wall non-tender, lungs clear Breasts: no masses Cardiovascular/Chest: normal peripheral pulses, normal rate Abdomen: normal bowel sounds, non tender Genitourinary/Rectal: normal genital exam, heme negative stool Extremities: normal range of motion, non-tender Skin Exam: normal pigmentation Microbiology Date/Time Source Procedure Growth Status 10/05/17 18:50 Nasal Nares MRSA Culture - Final NO METHICILLIN RESISTANT STAPH AUREUS... Complete 10/05/17 18:50 Rectum VRE Culture - Final Enterococcus Faecalis - Vre Complete Laboratory Tests 10/08/17 07:20: Sodium Level 136, Potassium Level 4.5, Chloride Level 96L, Carbon Dioxide Level 35H, Anion Gap 5, Blood Urea Nitrogen 50H, Creatinine 4.9H, Estimat Glomerular Filtration Rate 8.8, Glucose Level 160H, Calcium Level 8.8, Phosphorus Level 6.0H, Magnesium Level 2.2, Total Bilirubin 0.6, Aspartate Amino Transf (AST/SGOT ) 12L, Alanine Aminotransferase (ALT/SGPT) 9L, Alkaline Phosphatase 138H, Pro-B- Type Natriuretic Peptide 49370E, Total Protein 7.4, Albumin 3.3L, Globulin 4.1, Albumin/Globulin Ratio 0.8L 10/08/17 07:50: White Blood Count 5.3, Red Blood Count 3.16L, Hemoglobin 10.6L, Hematocrit 30.1L , Mean Corpuscular Volume 95, Mean Corpuscular Hemoglobin 33.6H, Mean Corpuscular Hemoglobin Concent 35.3, Red Cell Distribution Width 11.1L, Platelet Count 233, Mean Platelet Volume 7.3, Neutrophils (%) (Auto) 69.8, Lymphocytes (%) (Auto) 16.1L, Monocytes (%) (Auto) 11.3H, Eosinophils (%) (Auto ) 1.4, Basophils (%) (Auto) 1.4 Current Medications Medications (Trade) Dose Ordered Sig/Toya Route PRN Reason Start Time Stop Time Status Last Admin Dose Admin Acetaminophen (Tylenol) 650 mg Q4H PRN ORAL fever 10/07/17 14:32 11/04/17 14:31 10/08/17 05:32 Acetaminophen (Tylenol) 650 mg TID ORAL 10/07/17 18:00 11/06/17 12:59 10/08/17 15:02 Albuterol/ Ipratropium (Albuterol/ Ipratropium) 3 ml Q6HRT PRN HHN dyspnea 10/07/17 14:33 10/10/17 14:32 Clonidine HCl (Catapres Tab) 0.1 mg Q4H PRN ORAL bp over 160 syst 10/07/17 14:33 11/05/17 14:32 10/08/17 00:37 Dextrose (Dextrose 50%) STAT PRN IV Hypoglycemia 10/07/17 14:33 11/04/17 14:32 Docusate Sodium (Colace) 100 mg THREE TIMES A DAY ORAL 10/07/17 18:00 11/06/17 12:59 10/08/17 15:02 Gabapentin (Neurontin) 300 mg BID ORAL 10/08/17 18:00 11/05/17 20:59 Heparin Sodium (Porcine) (Heparin 5000 units/ml) 5,000 units EVERY 12 HOURS SUBQ 10/07/17 21:00 11/05/17 08:59 10/08/17 10:58 Insulin Aspart (NovoLOG) BEFORE MEALS AND HS SUBQ 10/07/17 16:30 11/05/17 06:29 10/08/17 17:20 Lansoprazole (Prevacid) 30 mg DAILY ORAL 10/08/17 09:00 11/06/17 12:29 10/08/17 10:55 Levothyroxine Sodium (Synthroid) 50 mcg DAILY ORAL 10/08/17 09:00 11/05/17 08:59 10/08/17 10:54 Lidocaine (Lidoderm 5% PATCH) 1 patch DAILY@2100 TDERMAL 10/07/17 21:00 11/05/17 20:59 10/07/17 21:07 Lidocaine (Xylocaine 5% cream) 1 applic QID TOPIC 10/07/17 18:00 11/05/17 17:59 10/08/17 15:03 Lisinopril (Prinivil) 20 mg BID ORAL 10/08/17 18:00 11/05/17 08:59 Metoclopramide HCl (Reglan) 5 mg AC+HS ORAL 10/07/17 16:30 11/05/17 13:29 10/08/17 17:19 Metoprolol Tartrate (Lopressor) 50 mg EVERY 12 HOURS ORAL 10/07/17 21:00 11/05/17 08:59 10/08/17 10:56 Nifedipine (Procardia XL) 90 mg DAILY ORAL 10/08/17 09:00 11/05/17 08:59 10/08/17 10:55 Ondansetron HCl (Zofran) 4 mg Q6H PRN IVP Nausea & Vomiting 10/07/17 14:35 11/05/17 14:34 10/08/17 05:31 Polyethylene Glycol (Miralax) 17 gm HSPRN PRN ORAL Constipation 10/07/17 14:35 11/04/17 14:34 Sevelamer Carbonate (Renvela) 800 mg THREE TIMES A DAY ORAL 10/07/17 18:00 11/06/17 12:59 10/08/17 15:02 Tramadol HCl (Ultram) 50 mg Q6H PRN ORAL Severe Pain (Pain Scale 7-10) 10/07/17 14:35 10/14/17 14:34 10/07/17 18:08 Zolpidem Tartrate (Ambien) 5 mg HSPRN PRN ORAL Insomnia 10/07/17 14:35 10/12/17 14:34 LEXI THOMAS Oct 08, 2017 18:18
[2017-10-08] MEDS: Lisinopril 20mg tab ORAL SCH (18:20)
--- NOTE | 2017-10-08 18:24 | General Progress Note ---
Progress Note Progress Note REHAB FOLLOW UP PROGRESS NOTE: SUBJECTIVE: AT BED, LEFT SHOULDER PAIN AND RESTRICTED ROM. NO BM, PER PT >> MIN-MOD A BED MOB, TX, GAIT PER OT >> MIN A DRESSING, Limitations in L shoulder flex, abduction, and external rotation noted. REVIEW OF SYSTEMS: C EYES: History of left eye surgery. Denies diplopia. ENT : Denies dysphagia. CARDIOVASCULAR: No chest pain. PULMONARY: No shortness of breath. GASTROINTESTINAL: No abdominal pain. GENITOURINARY: End-stage renal disease on hemodialysis. MUSCULOSKELETAL: Left shoulder pain.NEUROLOGIC: OFF/ ON dizziness. PHYSICAL EXAMINATION: VITAL SIGNS: NOTED PER CHART, HEENT: No facial droop. NECK: Supple HEART: Regular rhythm and rate. LUNGS: Clear to auscultation bilaterally. ABDOMEN: Soft, nontender, and nondistended. Normal bowel sounds with no palpable or abnormal mass. EXTREMITIES: No pitting edema. No calf tenderness. No clubbing or cyanosis. NEUROLOGIC: The patient is alert, awake, and oriented. Movement of right upper and bilateral lower limb antigravity of the left limb, movement of left shoulder is strictly limited with pain LABORATORY AND DIAGNOSTIC DATA: NOTED PER CHART. left shoulder mri >> IMPRESSION: Full thickness tear of the supraspinatus tendon with a 2 cm proximal retraction of the musculotendinous junction. Diffuse, moderate rotator cuff tendinopathy with enlargement and intermediate heterogeneous signal involving all portions of the rotator cuff. Scattered likely associated heterogeneous signal within portions of the rotator cuff muscles as described above. 1 cm septated superior para labral cyst adjacent to the supraspinatus tendon. Moderate degeneration of the glenoid labrum. Arthropathy of the AC joint ASSESSMENT: The patient is a 67-year-old female with; 1. Status post fall having dizziness. 2. Head trauma. 3. Evidence of questionable hydrocephalus with CT scan of the head. 4. Gait abnormality. 5. Debility and functional decline. 6. Limb pain. 7. Left shoulder contusion versus ligament tear. 8. End-stage renal disease on hemodialysis. 9. Hypertension. 10. Clinical peripheral polyneuropathy and neuropathic pain. 11. Hypothyroidism. 12. Debility and functional decline and gait abnormality. LEFT SHOULDER RCT RECOMMENDATION: 24-hour nursing care. Physical therapy, full range of motion, transfer training, endurance, balance and gait training, fall prevention with appropriate assisted device. Occupational therapy for activities of daily living equipment, function and transfer training of upper extremity range of motion and strengthening exercise. Nursing for her bowel and bladder, medication regimen, skin care prevention and pressure ulcer, the patient and family education. lidocaine patch and lidocaine cream to be applied to left shoulder for pain control. ON ULTRAM left shoulder MRI >> REPORT TO ORTHO FOR F/U AND CARE ORTHO >> F/U. SEEN BY neurologist >> F/U Continue medical management per Medicine. KURT KAYE M.D. Oct 08, 2017 18:24
[2017-10-08 20:00] VITALS: BP 156/68
--- NOTE | 2017-10-08 22:45 | Consultation ---
DATE OF CONSULTATION: 10/08/2017 NEUROLOGICAL CONSULTATION CONSULTING PHYSICIAN: George Bailey M.D. REQUESTING PHYSICIAN: Makenna Daniel M.D. HISTORY OF PRESENT ILLNESS: The patient is a 67-year-old female seen in neurological consultation to evaluate the intermittent vertigo episodes with fall, status post recent fall with head and left shoulder trauma. The patient informed me that on the day of admission, she was in shower where she felt like she fainted, got "very dizzy," and fell down hitting her head and left shoulder. She was brought to emergency room complaining of pain in her left shoulder, which was increasing with any movement. There was some nausea and episodes of vomiting. Her vital signs included blood pressure of 218/91, heart rate of 99, and she was afebrile. Her [place] Coma Scale was 15. EKG, normal sinus rhythm, no PVC. Chest x-ray, no acute disease. X-ray of left shoulder, no fracture noted. Imaging studies also included CT scan of the brain, which revealed signs of ventriculomegaly, probably central atrophy, although given that it was out of proportion to degree of sulcal dilatation, possibility of hydrocephalus was raised, and MRI was requested. MRI of the brain was done that revealed no acute intracranial abnormalities with moderate atrophy and evidence of chronic small vessel disease involving white matter tract. No evidence of hydrocephalus confirmed. The patient's laboratory studies included mild anemia with hematocrit 35.2. Normal coagulation. Urinalysis with 3+ glucose and 4+ protein. Chemistry panel included potassium 5.3, BUN of 61, creatinine 5.3, blood sugar 181, but also elevated total protein 8.5 with normal TSH, B12, folate. Elevated triglycerides 254. Elevated BNP of 24,993. Elevated hemoglobin A1c of . Since admission until present, there was some improvement, but she continues to have persistent headaches. Neurology consult was requested. PAST MEDICAL HISTORY: The patient has extensive medical history that included hypertension, bronchial asthma, CHF, coronary artery disease, end-stage renal disease, on hemodialysis with diabetic nephropathy and diabetic polyneuropathy. The patient indicated for the last 6 months, she had at least three or four episodes of acute vertigo causing her to fall. She has been seen at [facility], but she is unaware of the results of studies. In the last few days, she had persistent dull headaches. Gait is abnormal and unsteady. MEDICATIONS: Treatment prior to admission included atorvastatin, Epogen, furosemide, folate, gabapentin, hydralazine, insulin, isosorbide, lansoprazole, levothyroxine, lisinopril, metoprolol, nifedipine, ondansetron, and vitamin B complex supplement. ALLERGIES: None reported. SOCIAL HISTORY: Lives with her family. No evidence of alcohol or drug abuse. Nonsmoker. FAMILY HISTORY: Noncontributory. REVIEW OF SYSTEMS: Feels "so so," complaining of persistent dull headaches, and unsteady gait. Numbness and tingling in both feet. Denies chest pain. Denies respiratory problems. Denies abdominal pain or discomfort. No urine or bowel incontinence. PHYSICAL EXAMINATION: GENERAL: A well-developed, somewhat ill-appearing female, not in acute distress, lying comfortably in bed. VITAL SIGNS: Now are stable, blood pressure 164/65, she is afebrile. HEENT: Head normocephalic. There is no evidence of injuries. Eyes, ears, and throat are clear. NECK: Supple. No meningeal signs. MUSCULOSKELETAL: Unremarkable. There are no deformities. There is tenderness on palpation of left shoulder. Peripheral pulses 1+ and symmetric. MENTAL STATUS: The patient is alert and oriented x3 with no evidence of aphasia or apraxia. Cognitive function normal. CRANIAL NERVE II: Pupils both responding to light and accommodation. Extraocular movements intact. No nystagmus. CRANIAL NERVE V: Normal corneal responses. CRANIAL NERVE VII: No facial asymmetry. CRANIAL NERVE VIII: Grossly normal hearing. CRANIAL NERVES IX THROUGH XII: Within normal limits. MOTOR EXAMINATION: Normal muscle tone. Strength 5/5 in all extremities. No involuntary movement. Deep tendon reflexes depressed bilaterally. Plantar responses flexor. SENSORY EXAMINATION: Decreased response to pin stimulation and proprioception in both feet. GAIT: Slightly wobbly. IMPRESSION: 1. Recurrent vertigo episodes resembling chronic labyrinthitis. 2. Presyncopal episodes with fall, blunt head trauma, now with persistent headaches, muscle contraction type. 3. End-stage renal disease. 4. Diabetes type 2 with diabetic polyneuropathy. 5. Coronary artery disease. DISCUSSION: The patient had blunt head trauma with mild cerebral concussion presenting with persistent headaches. No evidence of acute intracranial abnormalities noted on CT and MRI of the brain. There was extensive ischemic cerebrovascular disease, most likely related to underlying hypertension, diabetes, and renal failure. Post-concussion cephalalgia, expected gradually to resolve, may use small doses of Motrin and Tylenol for pain management. Gait somewhat unstable representing risk of fall and walker may be of help in fall prevention. The patient to continue with current treatment, including Neurontin 300 mg b.i.d. Thank you for allowing me to see this interesting patient in neurological consultation. George Bailey M.D. DR: MALGORZATA JOB#: [id number] CC:
--- NOTE | 2017-10-08 22:52 | General Progress Note ---
Assessment/Plan Assessment/Plan Assessment N/V combined with a sensation of vertigo no acute intracrainial pathology on MRI Recommendations push po follow symptoms Possible EGD if symptoms persist (can do as outpt if discharged Subjective Allergies: Coded Allergies: No Known Allergies (Unverified , 05/12/17) Subjective seen this am feels ok MRI and neurology evaluation noted no vomiting Objective Last 24 Hour Vital Signs Date Time Temp Pulse Resp B/P (MAP) Pulse Ox O2 Delivery O2 Flow Rate FiO2 10/08/17 21:25 71 156/68 10/08/17 20:00 98.8 71 19 156/68 97 Room Air 98.8 10/08/17 18:20 131/52 10/08/17 10:56 72 164/65 10/08/17 10:55 72 164/65 10/08/17 10:55 164/65 10/08/17 08:30 98.2 68 17 171/70 95 Room Air 98.2 10/08/17 08:23 74 18 Room Air 21 10/08/17 05:32 98.3 10/08/17 04:00 98.3 71 18 151/66 98 Room Air 98.3 10/08/17 00:37 162/68 10/08/17 00:00 98.3 16 162/68 98 Room Air 98.3 Intake and Output 10/07/17 10/08/17 19:00 07:00 Output Total 1454 ml Balance -1454 ml Hemodialysis UF 1454 ml # Voids 1 Laboratory Tests 10/08/17 07:20: Sodium Level 136, Potassium Level 4.5, Chloride Level 96L, Carbon Dioxide Level 35H, Anion Gap 5, Blood Urea Nitrogen 50H, Creatinine 4.9H, Estimat Glomerular Filtration Rate 8.8, Glucose Level 160H, Calcium Level 8.8, Phosphorus Level 6.0H, Magnesium Level 2.2, Total Bilirubin 0.6, Aspartate Amino Transf (AST/SGOT ) 12L, Alanine Aminotransferase (ALT/SGPT) 9L, Alkaline Phosphatase 138H, Pro-B- Type Natriuretic Peptide 90803T, Total Protein 7.4, Albumin 3.3L, Globulin 4.1, Albumin/Globulin Ratio 0.8L 10/08/17 07:50: White Blood Count 5.3, Red Blood Count 3.16L, Hemoglobin 10.6L, Hematocrit 30.1L , Mean Corpuscular Volume 95, Mean Corpuscular Hemoglobin 33.6H, Mean Corpuscular Hemoglobin Concent 35.3, Red Cell Distribution Width 11.1L, Platelet Count 233, Mean Platelet Volume 7.3, Neutrophils (%) (Auto) 69.8, Lymphocytes (%) (Auto) 16.1L, Monocytes (%) (Auto) 11.3H, Eosinophils (%) (Auto ) 1.4, Basophils (%) (Auto) 1.4 Height (Feet): 5 Height (Inches): 0.00 Weight (Pounds): 160 Objective WDWN NCAT supple CTA RRR abd soft ND no edema non focal LUE JANELL Vasquez Oct 08, 2017 22:52
[2017-10-09] VITALS: BP 115/48
[2017-10-09 04:00] VITALS: BP 142/64
[2017-10-09] MEDS ORDERED: Lactulose 20gm/30ml UDC ORAL ONE (06:00)
[2017-10-09] MEDS: NovoLOG Insulin Flexpen SUBQ SCH ×4 (06:02→20:48)
--- NOTE | 2017-10-09 06:02 | General Progress Note ---
Progress Note Progress Note REHAB FOLLOW UP PROGRESS NOTE: SUBJECTIVE: AT BED, NO N/V LEFT SHOULDER PAIN AND RESTRICTED ROM. NO BM, OFF/ON HEADACHE PER PT -OT >> MIN-MOD A BED MOB, TX, GAIT , MIN A DRESSING, REVIEW OF SYSTEMS: C EYES: History of left eye surgery. Denies diplopia. ENT : Denies dysphagia. CARDIOVASCULAR: No chest pain. PULMONARY: No shortness of breath. GASTROINTESTINAL: No abdominal pain. GENITOURINARY: End-stage renal disease on hemodialysis. MUSCULOSKELETAL: Left shoulder pain.NEUROLOGIC: OFF/ ON dizziness. PHYSICAL EXAMINATION: VITAL SIGNS: NOTED PER CHART, HEENT: No facial droop. NECK: Supple HEART: Regular rhythm and rate. LUNGS: Clear to auscultation bilaterally. ABDOMEN: Soft, nontender, and nondistended. Normal bowel sounds with no palpable or abnormal mass. EXTREMITIES: No pitting edema. No calf tenderness. No clubbing or cyanosis. NEUROLOGIC: The patient is alert, awake, and oriented. Movement of right upper and bilateral lower limb antigravity of the left limb, movement of left shoulder is strictly limited with pain LABORATORY AND DIAGNOSTIC DATA: NOTED PER CHART. left shoulder mri >> IMPRESSION: Full thickness tear of the supraspinatus tendon with a 2 cm proximal retraction of the musculotendinous junction. Diffuse, moderate rotator cuff tendinopathy with enlargement and intermediate heterogeneous signal involving all portions of the rotator cuff. Scattered likely associated heterogeneous signal within portions of the rotator cuff muscles as described above. 1 cm septated superior para labral cyst adjacent to the supraspinatus tendon. Moderate degeneration of the glenoid labrum. Arthropathy of the AC joint ASSESSMENT: The patient is a 67-year-old female with; 1. Status post fall having dizziness. 2. Head trauma. 3. Evidence of questionable hydrocephalus with CT scan of the head. 4. Gait abnormality. 5. Debility and functional decline. 6. Limb pain. 7. Left shoulder contusion versus ligament tear. 8. End-stage renal disease on hemodialysis. 9. Hypertension. 10. Clinical peripheral polyneuropathy and neuropathic pain. 11. Hypothyroidism. 12. Debility and functional decline and gait abnormality. LEFT SHOULDER RCT RECOMMENDATION: 24-hour nursing care. Physical therapy, full range of motion, transfer training, endurance, balance and gait training, fall prevention with appropriate assisted device. Occupational therapy for activities of daily living equipment, function and transfer training of upper extremity range of motion and strengthening exercise. Nursing for her bowel and bladder, medication regimen, skin care prevention and pressure ulcer, the patient and family education. lidocaine patch and lidocaine cream to be applied to left shoulder for pain control. ON ULTRAM left shoulder MRI >> ORTHO FOR F/U AND CARE neurologist >> F/U Continue medical management per Medicine. COLACE, MIRALAX. LACTULOSE, SUPP DULCOLAX CHART REVIEWED. SEE ORDERS. KURT KAYE M.D. Oct 09, 2017 06:02
[2017-10-09 08:00] VITALS: BP 167/71
[2017-10-09] MEDS: Metoprolol Tartrate 50mg tab ORAL SCH ×2 (09:00→20:44)
[2017-10-09] MEDS: Heparin 5000 units/ml inj SUBQ SCH ×2 (09:00→20:48)
[2017-10-09] MEDS: Lisinopril 20mg tab ORAL SCH ×2 (09:00→18:39)
[2017-10-09] MEDS: Docusate 100mg cap ORAL SCH ×2 (09:00→18:00)
--- NOTE | 2017-10-09 09:45 | General Progress Note ---
Assessment/Plan Assessment/Plan 1. Anemia due to underlying chronic disease. --> Continue to closely monitor. --> Unless hemoglobin less than 9, she does not require anemia workup. --> Anemia has been mild and hgb >11. Hgb stable. 2. Hyperkalemia. --> The patient given Kayexalate management per Nephrology Service. 3. End-stage renal disease, on hemodialysis three times a week. 4. History of coronary artery disease. 5. History of anemia, low B12, low iron. --> Iron levels 82 6. Dizziness and unsteady gait. 7. Hemodialysis ordered for the morning. Subjective Date patient seen: Oct 08, 2017 Constitutional: Denies: no symptoms, chills, diaphoresis, fever, malaise, weakness, other HEENT: Denies: no symptoms, eye pain, blurred vision, tearing, double vision, ear pain, ear discharge, nose pain, nose congestion, throat pain, throat swelling, mouth pain, mouth swelling, other Cardiovascular: Denies: no symptoms, chest pain, edema, irregular heart rate, lightheadedness, palpitations, syncope, other Respiratory: Denies: no symptoms, cough, orthopnea, shortness of breath, SOB with excertion, SOB at rest, sputum, stridor, wheezing, other Gastrointestinal/Abdominal: Denies: no symptoms, abdomen distended, abdominal pain, black stools, tarry stools, blood in stool, constipated, diarrhea, difficulty swallowing, nausea, poor appetite, poor fluid intake, rectal bleeding , vomiting, other Genitourinary: Denies: no symptoms, burning, discharge, frequency, flank pain, hematuria, incontinence, pain, urgency, other Neurologic/Psychiatric: Denies: no symptoms, anxiety, depressed, emotional problems, headache, numbness, paresthesia, pre-existing deficit, seizure, tingling, tremors, weakness, other Hematologic/Lymphatic: Reports: anemia Allergies: Coded Allergies: No Known Allergies (Unverified , 05/12/17) Subjective Ongoing HD. NAD. Objective Last 24 Hour Vital Signs Date Time Temp Pulse Resp B/P (MAP) Pulse Ox O2 Delivery O2 Flow Rate FiO2 10/09/17 08:00 97.3 77 18 167/71 98 Room Air 97.3 10/09/17 07:00 Room Air 10/09/17 04:00 98.6 69 19 142/64 96 Room Air 98.6 10/09/17 00:00 99.0 67 19 115/48 99 Room Air 99.0 10/09/17 00:00 Room Air 10/08/17 21:25 71 156/68 10/08/17 20:00 98.8 71 19 156/68 97 Room Air 98.8 10/08/17 18:20 131/52 10/08/17 10:56 72 164/65 10/08/17 10:55 72 164/65 10/08/17 10:55 164/65 Intake and Output 10/08/17 10/09/17 19:00 07:00 Intake Total 480 ml 250 ml Balance 480 ml 250 ml Intake Oral 480 ml 250 ml # Voids 2 Labs Test 10/07/17 06:35 10/08/17 07:20 10/08/17 07:50 White Blood Count 4.8 K/UL (4.8-10.8) 5.3 K/UL (4.8-10.8) Red Blood Count 3.29 M/UL (4.20-5.40) 3.16 M/UL (4.20-5.40) Hemoglobin 11.0 G/DL (12.0-16.0) 10.6 G/DL (12.0-16.0) Hematocrit 32.0 % (37.0-47.0) 30.1 % (37.0-47.0) Mean Corpuscular Volume 97 FL (80-99) 95 FL (80-99) Mean Corpuscular Hemoglobin 33.4 PG (27.0-31.0) 33.6 PG (27.0-31.0) Mean Corpuscular Hemoglobin Concent 34.4 G/DL (32.0-36.0) 35.3 G/DL (32.0-36.0) Red Cell Distribution Width 11.5 % (11.6-14.8) 11.1 % (11.6-14.8) Platelet Count 232 K/UL (150-450) 233 K/UL (150-450) Mean Platelet Volume 7.2 FL (6.5-10.1) 7.3 FL (6.5-10.1) Neutrophils (%) (Auto) 66.0 % (45.0-75.0) 69.8 % (45.0-75.0) Lymphocytes (%) (Auto) 21.4 % (20.0-45.0) 16.1 % (20.0-45.0) Monocytes (%) (Auto) 9.5 % (1.0-10.0) 11.3 % (1.0-10.0) Eosinophils (%) (Auto) 1.9 % (0.0-3.0) 1.4 % (0.0-3.0) Basophils (%) (Auto) 1.2 % (0.0-2.0) 1.4 % (0.0-2.0) Sodium Level 137 MMOL/L (136-145) 136 MMOL/L (136-145) Potassium Level 5.5 MMOL/L (3.5-5.1) 4.5 MMOL/L (3.5-5.1) Chloride Level 102 MMOL/L (98-107) 96 MMOL/L (98-107) Carbon Dioxide Level 25 MMOL/L (21-32) 35 MMOL/L (21-32) Anion Gap 10 mmol/L (5-15) 5 mmol/L (5-15) Blood Urea Nitrogen 71 mg/dL (7-18) 50 mg/dL (7-18) Creatinine 6.1 MG/DL (0.55-1.30) 4.9 MG/DL (0.55-1.30) Estimat Glomerular Filtration Rate 6.8 mL/min (>60) 8.8 mL/min (>60) Glucose Level 161 MG/DL (74-106) 160 MG/DL (74-106) Hemoglobin A1c 6.1 % (4.3-6.0) Uric Acid 7.5 MG/DL (2.6-7.2) Calcium Level 9.0 MG/DL (8.5-10.1) 8.8 MG/DL (8.5-10.1) Phosphorus Level 5.2 MG/DL (2.5-4.9) 6.0 MG/DL (2.5-4.9) Magnesium Level 2.1 MG/DL (1.8-2.4) 2.2 MG/DL (1.8-2.4) Iron Level 82 ug/dL (50-175) Total Iron Binding Capacity 221 ug/dL (250-450) Percent Iron Saturation 37 % (15-50) Unsaturated Iron Binding 139 ug/dL (112-346) Ferritin 611 NG/ML (8-388) Total Bilirubin 0.6 MG/DL (0.2-1.0) 0.6 MG/DL (0.2-1.0) Gamma Glutamyl Transpeptidase 35 U/L (5-85) Aspartate Amino Transf (AST/SGOT) 15 U/L (15-37) 12 U/L (15-37) Alanine Aminotransferase (ALT/SGPT) 11 U/L (12-78) 9 U/L (12-78) Alkaline Phosphatase 139 U/L (46-116) 138 U/L (46-116) Troponin I 0.018 ng/mL (0.000-0.056) C-Reactive Protein, Quantitative 5.0 mg/dL (0.00-0.90) Pro-B-Type Natriuretic Peptide < 5 pg/mL (0-125) 84909 pg/mL (0-125) Total Protein 7.4 G/DL (6.4-8.2) 7.4 G/DL (6.4-8.2) Albumin 3.2 G/DL (3.4-5.0) 3.3 G/DL (3.4-5.0) Globulin 4.2 g/dL 4.1 g/dL Triglycerides Level 254 MG/DL (30-150) Cholesterol Level 134 MG/DL (< 200) LDL Cholesterol 65 mg/dL (<100) HDL Cholesterol 42 MG/DL (40-60) Cholesterol/HDL Ratio 3.2 (3.3-4.4) Vitamin B12 Level 807 PG/ML (193-986) Folate 17.9 NG/ML (8.6-58.9) Thyroid Stimulating Hormone (TSH) 4.290 uiU/mL (0.358-3.740) Albumin/Globulin Ratio 0.8 (1.0-2.7) Height (Feet): 5 Height (Inches): 0.00 Weight (Pounds): 160 General Appearance: no apparent distress Respiratory/Chest: decreased breath sounds Abdomen: non tender, soft Edema: trace edema Carl Daniels Oct 09, 2017 09:45
[2017-10-09 12:00] VITALS: BP 130/51
--- NOTE | 2017-10-09 13:39 | Nephrology Progress Note ---
Assessment/Plan Problem List: (1) Hyperkalemia (2) ESRD (end stage renal disease) (3) Dizziness (4) Hypertensive kidney disease Assessment (1) ESRD (end stage renal disease) on dialysis has high K (2) h/o CAD (3) Hypertensive kidney disease (4) Diabetic nephropathy with proteinuria (5) h/o Anemia , low B12 and low Iron (6) Humeral head trauma (7) Dizziness and unsteady gait Plan start Renal diet HTN, OOC , meds adjusted Reglan PO HD in process now Per orders pain management PT OT Subjective ROS Limited/Unobtainable: No Constitutional: Reports: malaise Subjective no more vomiting Objective Objective Last 24 Hour Vital Signs Date Time Temp Pulse Resp B/P (MAP) Pulse Ox O2 Delivery O2 Flow Rate FiO2 10/09/17 12:00 97.7 69 17 130/51 96 Room Air 97.7 10/09/17 11:45 Room Air 10/09/17 08:40 Room Air 10/09/17 08:00 97.3 77 18 167/71 98 Room Air 97.3 10/09/17 07:00 Room Air 10/09/17 06:58 71 18 Room Air 21 10/09/17 04:00 98.6 69 19 142/64 96 Room Air 98.6 10/09/17 00:00 99.0 67 19 115/48 99 Room Air 99.0 10/09/17 00:00 Room Air 10/08/17 21:25 71 156/68 10/08/17 20:00 98.8 71 19 156/68 97 Room Air 98.8 10/08/17 18:20 131/52 Intake and Output 10/08/17 10/09/17 19:00 07:00 Intake Total 480 ml 250 ml Balance 480 ml 250 ml Intake Oral 480 ml 250 ml # Voids 2 Laboratory Tests 10/09/17 09:25: Stool Occult Blood Negative Height (Feet): 5 Height (Inches): 0.00 Weight (Pounds): 160 General Appearance: no apparent distress Respiratory/Chest: lungs clear Objective no change VOLODYMYR DOUGLAS Oct 09, 2017 13:39
--- NOTE | 2017-10-09 14:58 | Pulmonology Progress Note ---
Assessment/Plan Problems: (1) Hyperkalemia (2) Unsteady gait (3) Dizziness (4) ESRD (end stage renal disease) (5) Diabetic nephropathy with proteinuria Assessment/Plan HD as per nephrology check electrolytes sliding scale diabetic diet symptomatic treatment med/surg pt/ot dc planning Subjective ROS Limited/Unobtainable: No Constitutional: Reports: no symptoms HEENT: Repors: no symptoms Respiratory: Reports: no symptoms Allergies: Coded Allergies: No Known Allergies (Unverified , 05/12/17) Objective Last 24 Hour Vital Signs Date Time Temp Pulse Resp B/P (MAP) Pulse Ox O2 Delivery O2 Flow Rate FiO2 10/09/17 12:00 97.7 69 17 130/51 96 Room Air 97.7 10/09/17 11:45 Room Air 10/09/17 08:40 Room Air 10/09/17 08:00 97.3 77 18 167/71 98 Room Air 97.3 10/09/17 07:00 Room Air 10/09/17 06:58 71 18 Room Air 21 10/09/17 04:00 98.6 69 19 142/64 96 Room Air 98.6 10/09/17 00:00 99.0 67 19 115/48 99 Room Air 99.0 10/09/17 00:00 Room Air 10/08/17 21:25 71 156/68 10/08/17 20:00 98.8 71 19 156/68 97 Room Air 98.8 10/08/17 18:20 131/52 Intake and Output 10/08/17 10/09/17 19:00 07:00 Intake Total 480 ml 250 ml Balance 480 ml 250 ml Intake Oral 480 ml 250 ml # Voids 2 Objective General Appearance: WD/WN Lines, tubes and drains: peripheral HEENT: normocephalic, atraumatic Neck: non-tender, normal alignment Respiratory/Chest: chest wall non-tender, lungs clear Breasts: no masses Cardiovascular/Chest: normal peripheral pulses, normal rate Abdomen: normal bowel sounds, non tender Genitourinary/Rectal: normal genital exam, heme negative stool Extremities: normal range of motion, non-tender Skin Exam: normal pigmentation Laboratory Tests 10/09/17 09:25: Stool Occult Blood Negative Current Medications Medications (Trade) Dose Ordered Sig/Toya Route PRN Reason Start Time Stop Time Status Last Admin Dose Admin Acetaminophen (Tylenol) 650 mg Q4H PRN ORAL fever 10/07/17 14:32 11/04/17 14:31 10/08/17 05:32 Acetaminophen (Tylenol) 650 mg TID ORAL 10/07/17 18:00 11/06/17 12:59 10/09/17 14:09 Albuterol/ Ipratropium (Albuterol/ Ipratropium) 3 ml Q6HRT PRN HHN dyspnea 10/07/17 14:33 10/10/17 14:32 Clonidine HCl (Catapres Tab) 0.1 mg Q4H PRN ORAL bp over 160 syst 10/07/17 14:33 11/05/17 14:32 10/08/17 00:37 Dextrose (Dextrose 50%) STAT PRN IV Hypoglycemia 10/07/17 14:33 11/04/17 14:32 Docusate Sodium (Colace) 100 mg TWICE A DAY ORAL 10/09/17 09:00 11/08/17 08:59 Gabapentin (Neurontin) 300 mg BID ORAL 10/08/17 18:00 11/05/17 20:59 10/08/17 18:19 Heparin Sodium (Porcine) (Heparin 5000 units/ml) 5,000 units EVERY 12 HOURS SUBQ 10/07/17 21:00 11/05/17 08:59 10/08/17 21:27 Insulin Aspart (NovoLOG) BEFORE MEALS AND HS SUBQ 10/07/17 16:30 11/05/17 06:29 10/09/17 12:14 Lansoprazole (Prevacid) 30 mg DAILY ORAL 10/08/17 09:00 11/06/17 12:29 10/08/17 10:55 Levothyroxine Sodium (Synthroid) 50 mcg DAILY ORAL 10/08/17 09:00 11/05/17 08:59 10/08/17 10:54 Lidocaine (Lidoderm 5% PATCH) 1 patch DAILY@2100 TDERMAL 10/07/17 21:00 11/05/17 20:59 10/08/17 21:25 Lidocaine (Xylocaine 5% cream) 1 applic QID TOPIC 10/07/17 18:00 11/05/17 17:59 10/09/17 14:09 Lisinopril (Prinivil) 20 mg BID ORAL 10/08/17 18:00 11/05/17 08:59 10/08/17 18:20 Metoclopramide HCl (Reglan) 5 mg AC+HS ORAL 10/07/17 16:30 11/05/17 13:29 10/09/17 12:08 Metoprolol Tartrate (Lopressor) 50 mg EVERY 12 HOURS ORAL 10/07/17 21:00 11/05/17 08:59 10/08/17 21:25 Nifedipine (Procardia XL) 90 mg DAILY ORAL 10/08/17 09:00 11/05/17 08:59 10/08/17 10:55 Ondansetron HCl (Zofran) 4 mg Q6H PRN IVP Nausea & Vomiting 10/07/17 14:35 11/05/17 14:34 10/08/17 05:31 Polyethylene Glycol (Miralax) 17 gm BEDTIME ORAL 10/09/17 21:00 11/08/17 20:59 Polyethylene Glycol (Miralax) 17 gm HSPRN PRN ORAL Constipation 10/07/17 14:35 11/04/17 14:34 Sevelamer Carbonate (Renvela) 800 mg THREE TIMES A DAY ORAL 10/07/17 18:00 11/06/17 12:59 10/09/17 14:09 Tramadol HCl (Ultram) 50 mg Q6H PRN ORAL Severe Pain (Pain Scale 7-10) 10/07/17 14:35 10/14/17 14:34 10/07/17 18:08 Zolpidem Tartrate (Ambien) 5 mg HSPRN PRN ORAL Insomnia 10/07/17 14:35 10/12/17 14:34 LEXI THOMAS Oct 09, 2017 14:58
[2017-10-09 16:00] VITALS: BP_SYST 161; BP_SYST 171; BP_DIAS 68; BP_DIAS 82
--- NOTE | 2017-10-09 19:47 | General Progress Note ---
Assessment/Plan Assessment/Plan Assessment N/V combined with a sensation of vertigo - improved no acute intracrainial pathology on MRI Recommendations push po follow symptoms Outpt EGD if symptoms persist Subjective Allergies: Coded Allergies: No Known Allergies (Unverified , 05/12/17) Subjective seen this am feels ok no vomiting Objective Last 24 Hour Vital Signs Date Time Temp Pulse Resp B/P (MAP) Pulse Ox O2 Delivery O2 Flow Rate FiO2 10/09/17 18:39 150/70 10/09/17 16:00 97.3 78 20 161/68 95 97.3 10/09/17 12:00 97.7 69 17 130/51 96 Room Air 97.7 10/09/17 11:45 Room Air 10/09/17 08:40 Room Air 10/09/17 08:00 97.3 77 18 167/71 98 Room Air 97.3 10/09/17 07:00 Room Air 10/09/17 06:58 71 18 Room Air 21 10/09/17 04:00 98.6 69 19 142/64 96 Room Air 98.6 10/09/17 00:00 99.0 67 19 115/48 99 Room Air 99.0 10/09/17 00:00 Room Air 10/08/17 21:25 71 156/68 10/08/17 20:00 98.8 71 19 156/68 97 Room Air 98.8 Intake and Output 10/08/17 10/09/17 19:00 07:00 Intake Total 480 ml 250 ml Balance 480 ml 250 ml Intake Oral 480 ml 250 ml # Voids 2 Laboratory Tests 10/09/17 09:25: Stool Occult Blood Negative 10/09/17 15:45: C-Reactive Protein, Quantitative 5.8H Height (Feet): 5 Height (Inches): 0.00 Weight (Pounds): 160 Objective WDWN NCAT supple CTA RRR abd soft ND no edema non focal LUE vladimiring JANELL SERNA Oct 09, 2017 19:47
[2017-10-09 20:00] VITALS: BP 154/64
[2017-10-09] MEDS: Miralax 17gm pkt ORAL SCH (21:00)
[2017-10-10 04:38] VITALS: BP 152/66
[2017-10-10] MEDS: NovoLOG Insulin Flexpen SUBQ SCH ×4 (06:03→20:59)
--- NOTE | 2017-10-10 07:42 | Nephrology Progress Note ---
Assessment/Plan Problem List: (1) Hyperkalemia (2) ESRD (end stage renal disease) (3) Dizziness (4) Hypertensive kidney disease Assessment (1) ESRD (end stage renal disease) on dialysis has high K (2) h/o CAD (3) Hypertensive kidney disease (4) Diabetic nephropathy with proteinuria (5) h/o Anemia , low B12 and low Iron (6) Humeral head trauma (7) Dizziness and unsteady gait Plan Renal diet HTN, OOC , meds adjusted Reglan PO HD 10/09 next 10/11 Per orders pain management PT OT Subjective ROS Limited/Unobtainable: No Subjective no more vomiting Objective Objective Last 24 Hour Vital Signs Date Time Temp Pulse Resp B/P (MAP) Pulse Ox O2 Delivery O2 Flow Rate FiO2 10/10/17 04:38 97.5 68 19 152/66 98 97.5 10/10/17 04:00 Room Air 10/10/17 00:58 175/74 10/10/17 00:00 Room Air 10/10/17 00:00 98.5 70 18 95 Room Air 98.5 10/09/17 20:44 74 154/64 10/09/17 20:04 78 20 Room Air 21 10/09/17 20:00 Room Air 10/09/17 20:00 98.7 74 18 154/64 95 Room Air 98.7 10/09/17 18:39 150/70 10/09/17 16:00 97.3 78 20 161/68 95 97.3 10/09/17 12:00 97.7 69 17 130/51 96 Room Air 97.7 10/09/17 11:45 Room Air 10/09/17 08:40 Room Air 10/09/17 08:00 97.3 77 18 167/71 98 Room Air 97.3 Intake and Output 10/09/17 10/10/17 19:00 07:00 Intake Total 240 ml 480 ml Output Total 2100 ml Balance -1860 ml 480 ml Intake Oral 240 ml 480 ml Hemodialysis UF 2100 ml # Voids 2 # Bowel Movements 5 Laboratory Tests 10/09/17 09:25: Stool Occult Blood Negative 10/09/17 15:45: C-Reactive Protein, Quantitative 5.8H Height (Feet): 5 Height (Inches): 0.00 Weight (Pounds): 160 General Appearance: no apparent distress Objective no change FOULADIAN,VOLODYYMR Oct 10, 2017 07:42
[2017-10-10 08:00] VITALS: BP 141/53
[2017-10-10 08:19] LABS: BASOPHILS % (AUTO) 1.5 % (0.0-2.0); HEMATOCRIT 29.5 % (37.0-47.0); HEMOGLOBIN 10.3 G/DL (12.0-16.0); LYMPHOCYTES % (AUTO) 24.9 % (20.0-45.0); MEAN CORPUSCULAR VOLUME 96 FL (80-99); NEUTROPHILS % (AUTO) 60.6 % (45.0-75.0); PLATELET COUNT 228 K/UL (150-450); RED BLOOD COUNT 3.08 M/UL (4.20-5.40); RED CELL DISTRIBUTION WIDTH 11.2 % (11.6-14.8); WHITE BLOOD COUNT 4.1 K/UL (4.8-10.8)
[2017-10-10] MEDS: Docusate 100mg cap ORAL SCH ×2 (08:36→17:15)
[2017-10-10] MEDS: Metoprolol Tartrate 50mg tab ORAL SCH ×2 (08:36→20:52)
[2017-10-10] MEDS: Lisinopril 20mg tab ORAL SCH ×2 (08:36→17:15)
[2017-10-10] MEDS: Heparin 5000 units/ml inj SUBQ SCH ×2 (08:37→20:59)
[2017-10-10 08:50] LABS: ALANINE AMINOTRANSFERASE 9 U/L (12-78); ALBUMIN 3.2 G/DL (3.4-5.0); ALBUMIN/GLOBULIN RATIO 0.8 (1.0-2.7); ALKALINE PHOSPHATASE 135 U/L (46-116); ANION GAP 6 mmol/L (5-15); ASPARTATE AMINO TRANSFERASE 12 U/L (15-37); BILIRUBIN,TOTAL 0.9 MG/DL (0.2-1.0); BLOOD UREA NITROGEN 39 mg/dL (7-18); CALCIUM 9.1 MG/DL (8.5-10.1); CARBON DIOXIDE 37 MMOL/L (21-32); CHLORIDE 95 MMOL/L (98-107); CREATININE 4.7 MG/DL (0.55-1.30); PHOSPHORUS 4.8 MG/DL (2.5-4.9); POTASSIUM 3.7 MMOL/L (3.5-5.1); SODIUM 137 MMOL/L (136-145)
--- NOTE | 2017-10-10 09:35 | General Progress Note ---
Progress Note Progress Note REHAB FOLLOW UP PROGRESS NOTE: SUBJECTIVE: AT BED, NO N/V LEFT SHOULDER PAIN >> better + BM, OFF/ON HEADACHE / DIZZINESS PER PT >> Rolling * Contact Guard Assistance Supine to Sit * Contact Guard Assistance Bed Mobility Assistive Devices * Bed Rail Bed Mobility Comments * LIMITED BY SEVERE DIZZINESS Sit to Stand * Contact Guard Assistance Bed to Chair/Wheelchair * Contact Guard Assistance * * REVIEW OF SYSTEMS: EYES: History of left eye surgery. Denies diplopia. ENT: Denies dysphagia. CARDIOVASCULAR: No chest pain. PULMONARY: No shortness of breath. GASTROINTESTINAL: No abdominal pain. GENITOURINARY: End-stage renal disease on hemodialysis. MUSCULOSKELETAL: Left shoulder pain.NEUROLOGIC: OFF/ ON dizziness. PHYSICAL EXAMINATION: VITAL SIGNS: NOTED PER CHART, HEENT: No facial droop. NECK: Supple HEART: Regular rhythm and rate. LUNGS: Clear to auscultation bilaterally. ABDOMEN: Soft, nontender, and nondistended. Normal bowel sounds with no palpable or abnormal mass. EXTREMITIES: No pitting edema. No calf tenderness. No clubbing or cyanosis. NEUROLOGIC: The patient is alert, awake, and oriented. Movement of right upper and bilateral lower limb antigravity of the left limb, movement of left shoulder is strictly limited with pain LABORATORY AND DIAGNOSTIC DATA: NOTED PER CHART. left shoulder mri >> IMPRESSION: Full thickness tear of the supraspinatus tendon with a 2 cm proximal retraction of the musculotendinous junction. Diffuse, moderate rotator cuff tendinopathy with enlargement and intermediate heterogeneous signal involving all portions of the rotator cuff. Scattered likely associated heterogeneous signal within portions of the rotator cuff muscles as described above. 1 cm septated superior para labral cyst adjacent to the supraspinatus tendon. Moderate degeneration of the glenoid labrum. Arthropathy of the AC joint ASSESSMENT: The patient is a 67-year-old female with; 1. Status post fall having dizziness. PER NEURO >>> blunt head trauma with mild cerebral concussion presenting with persistent headaches. 2. Head trauma. 3. Evidence of questionable hydrocephalus with CT scan of the head >> NO REPORT IN MRI . 4. Gait abnormality. 5. Debility and functional decline. 6. Limb pain. 7. Left shoulder contusion versus ligament tear. 8. End-stage renal disease on hemodialysis. 9. Hypertension. 10. Clinical peripheral polyneuropathy and neuropathic pain. 11. Hypothyroidism. 12. Debility and functional decline and gait abnormality. LEFT SHOULDER RCT + RECTAL ALPA RECOMMENDATION: 24-hour nursing care. Physical therapy, full range of motion, transfer training, endurance, balance and gait training, fall prevention with appropriate assisted device. Occupational therapy for activities of daily living equipment, function and transfer training of upper extremity range of motion and strengthening exercise. Nursing for her bowel and bladder, medication regimen, skin care prevention and pressure ulcer, the patient and family education. lidocaine patch and lidocaine cream to be applied to left shoulder for pain control. ON ULTRAM left shoulder MRI >> ORTHO FOR F/U AND CARE neurologist >> F/U Continue medical management per Medicine. COLACE, MIRALAX. CHART REVIEWED. SEE ORDERS. VRE CONTACT ISOLATION. KURT KAYE M.D. Oct 10, 2017 09:35
--- NOTE | 2017-10-10 10:27 | Pulmonology Progress Note ---
Assessment/Plan Problems: (1) Hyperkalemia (2) Unsteady gait (3) Dizziness (4) ESRD (end stage renal disease) (5) Diabetic nephropathy with proteinuria Assessment/Plan no new complains doing better all reviewed HD as per nephrology check electrolytes sliding scale diabetic diet symptomatic treatment med/surg pt/ot dc planning Subjective ROS Limited/Unobtainable: No Constitutional: Reports: no symptoms HEENT: Repors: no symptoms Respiratory: Reports: no symptoms Allergies: Coded Allergies: No Known Allergies (Unverified , 05/12/17) Objective Last 24 Hour Vital Signs Date Time Temp Pulse Resp B/P (MAP) Pulse Ox O2 Delivery O2 Flow Rate FiO2 10/10/17 08:36 141/53 10/10/17 08:36 72 141/53 10/10/17 08:36 72 141/53 10/10/17 08:00 98.6 72 20 141/53 98 Room Air 98.6 10/10/17 04:38 97.5 68 19 152/66 98 97.5 10/10/17 04:00 Room Air 10/10/17 00:58 175/74 10/10/17 00:00 Room Air 10/10/17 00:00 98.5 70 18 95 Room Air 98.5 10/09/17 20:44 74 154/64 10/09/17 20:04 78 20 Room Air 21 10/09/17 20:00 Room Air 10/09/17 20:00 98.7 74 18 154/64 95 Room Air 98.7 10/09/17 18:39 150/70 10/09/17 16:00 97.3 78 20 161/68 95 97.3 10/09/17 12:00 97.7 69 17 130/51 96 Room Air 97.7 10/09/17 11:45 Room Air Intake and Output 10/09/17 10/10/17 19:00 07:00 Intake Total 240 ml 480 ml Output Total 2100 ml Balance -1860 ml 480 ml Intake Oral 240 ml 480 ml Hemodialysis UF 2100 ml # Voids 2 # Bowel Movements 5 Objective General Appearance: WD/WN Lines, tubes and drains: peripheral HEENT: normocephalic, atraumatic Neck: non-tender, normal alignment Respiratory/Chest: chest wall non-tender, lungs clear Breasts: no masses Cardiovascular/Chest: normal peripheral pulses, normal rate Abdomen: normal bowel sounds, non tender Genitourinary/Rectal: normal genital exam, heme negative stool Extremities: normal range of motion, non-tender Skin Exam: normal pigmentation Laboratory Tests 10/09/17 15:45: C-Reactive Protein, Quantitative 5.8H 10/10/17 07:15: White Blood Count 4.1L, Red Blood Count 3.08L, Hemoglobin 10.3L, Hematocrit 29.5L, Mean Corpuscular Volume 96, Mean Corpuscular Hemoglobin 33.5H, Mean Corpuscular Hemoglobin Concent 35.0, Red Cell Distribution Width 11.2L, Platelet Count 228, Mean Platelet Volume 6.9, Neutrophils (%) (Auto) 60.6, Lymphocytes (%) (Auto) 24.9, Monocytes (%) (Auto) 10.0, Eosinophils (%) (Auto) 3.0, Basophils (%) (Auto) 1.5, Sodium Level 137, Potassium Level 3.7, Chloride Level 95L, Carbon Dioxide Level 37H, Anion Gap 6, Blood Urea Nitrogen 39H, Creatinine 4.7H, Estimat Glomerular Filtration Rate 9.3, Glucose Level 215H, Uric Acid 4.2, Calcium Level 9.1, Phosphorus Level 4.8, Magnesium Level 2.2, Total Bilirubin 0.9, Aspartate Amino Transf (AST/SGOT) 12L, Alanine Aminotransferase (ALT/SGPT) 9L, Alkaline Phosphatase 135H, Pro-B-Type Natriuretic Peptide 8987H, Total Protein 7.3, Albumin 3.2L, Globulin 4.1, Albumin/Globulin Ratio 0.8L Current Medications Medications (Trade) Dose Ordered Sig/Toya Route PRN Reason Start Time Stop Time Status Last Admin Dose Admin Acetaminophen (Tylenol) 650 mg Q4H PRN ORAL fever 10/07/17 14:32 11/04/17 14:31 10/08/17 05:32 Acetaminophen (Tylenol) 650 mg TID ORAL 10/07/17 18:00 11/06/17 12:59 10/10/17 08:36 Albuterol/ Ipratropium (Albuterol/ Ipratropium) 3 ml Q6HRT PRN HHN dyspnea 10/07/17 14:33 10/10/17 14:32 Clonidine HCl (Catapres Tab) 0.1 mg Q4H PRN ORAL bp over 160 syst 10/07/17 14:33 11/05/17 14:32 10/10/17 00:58 Dextrose (Dextrose 50%) STAT PRN IV Hypoglycemia 10/07/17 14:33 11/04/17 14:32 Docusate Sodium (Colace) 100 mg TWICE A DAY ORAL 10/09/17 09:00 11/08/17 08:59 10/10/17 08:36 Gabapentin (Neurontin) 300 mg BID ORAL 10/08/17 18:00 11/05/17 20:59 10/10/17 08:36 Heparin Sodium (Porcine) (Heparin 5000 units/ml) 5,000 units EVERY 12 HOURS SUBQ 10/07/17 21:00 11/05/17 08:59 10/10/17 08:37 Insulin Aspart (NovoLOG) BEFORE MEALS AND HS SUBQ 10/07/17 16:30 11/05/17 06:29 10/10/17 06:03 Lansoprazole (Prevacid) 30 mg DAILY ORAL 10/08/17 09:00 11/06/17 12:29 10/10/17 08:36 Levothyroxine Sodium (Synthroid) 50 mcg DAILY ORAL 10/08/17 09:00 11/05/17 08:59 10/10/17 08:36 Lidocaine (Lidoderm 5% PATCH) 1 patch DAILY@2100 TDERMAL 10/07/17 21:00 11/05/17 20:59 10/09/17 20:44 Lidocaine (Xylocaine 5% cream) 1 applic QID TOPIC 10/07/17 18:00 11/05/17 17:59 10/10/17 08:38 Lisinopril (Prinivil) 20 mg BID ORAL 10/08/17 18:00 11/05/17 08:59 10/10/17 08:36 Metoclopramide HCl (Reglan) 5 mg AC+HS ORAL 10/07/17 16:30 11/05/17 13:29 10/10/17 06:02 Metoprolol Tartrate (Lopressor) 50 mg EVERY 12 HOURS ORAL 10/07/17 21:00 11/05/17 08:59 10/10/17 08:36 Nifedipine (Procardia XL) 90 mg DAILY ORAL 10/08/17 09:00 11/05/17 08:59 10/10/17 08:36 Ondansetron HCl (Zofran) 4 mg Q6H PRN IVP Nausea & Vomiting 10/07/17 14:35 11/05/17 14:34 10/08/17 05:31 Polyethylene Glycol (Miralax) 17 gm BEDTIME ORAL 10/09/17 21:00 11/08/17 20:59 Polyethylene Glycol (Miralax) 17 gm HSPRN PRN ORAL Constipation 10/07/17 14:35 11/04/17 14:34 Sevelamer Carbonate (Renvela) 800 mg THREE TIMES A DAY ORAL 10/07/17 18:00 11/06/17 12:59 10/10/17 08:36 Tramadol HCl (Ultram) 50 mg Q6H PRN ORAL Severe Pain (Pain Scale 7-10) 10/07/17 14:35 10/14/17 14:34 10/07/17 18:08 Zolpidem Tartrate (Ambien) 5 mg HSPRN PRN ORAL Insomnia 10/07/17 14:35 10/12/17 14:34 LEXI THOMAS Oct 10, 2017 10:27
--- NOTE | 2017-10-10 10:54 | General Progress Note ---
Assessment/Plan Assessment/Plan 1. Anemia due to underlying chronic disease. --> Blood transfusion no required as anemia mild at this time. --> Continue to closely monitor. --> Unless hemoglobin less than 9, she does not require anemia workup. --> Anemia has been mild and hgb >11. Hgb stable. 2. Hyperkalemia. --> The patient given Kayexalate management per Nephrology Service. 3. End-stage renal disease, on hemodialysis three times a week. 4. History of coronary artery disease. 5. History of anemia, low B12, low iron. --> Iron levels 82 6. Dizziness and unsteady gait. Subjective Date patient seen: Oct 09, 2017 Constitutional: Denies: no symptoms, chills, diaphoresis, fever, malaise, weakness, other HEENT: Denies: no symptoms, eye pain, blurred vision, tearing, double vision, ear pain, ear discharge, nose pain, nose congestion, throat pain, throat swelling, mouth pain, mouth swelling, other Cardiovascular: Denies: no symptoms, chest pain, edema, irregular heart rate, lightheadedness, palpitations, syncope, other Respiratory: Denies: no symptoms, cough, orthopnea, shortness of breath, SOB with excertion, SOB at rest, sputum, stridor, wheezing, other Gastrointestinal/Abdominal: Denies: no symptoms, abdomen distended, abdominal pain, black stools, tarry stools, blood in stool, constipated, diarrhea, difficulty swallowing, nausea, poor appetite, poor fluid intake, rectal bleeding , vomiting, other Genitourinary: Denies: no symptoms, burning, discharge, frequency, flank pain, hematuria, incontinence, pain, urgency, other Hematologic/Lymphatic: Reports: anemia Allergies: Coded Allergies: No Known Allergies (Unverified , 05/12/17) Subjective No major events overnight. Pain improved. Objective Last 24 Hour Vital Signs Date Time Temp Pulse Resp B/P (MAP) Pulse Ox O2 Delivery O2 Flow Rate FiO2 10/10/17 08:36 141/53 10/10/17 08:36 72 141/53 10/10/17 08:36 72 141/53 10/10/17 08:00 98.6 72 20 141/53 98 Room Air 98.6 10/10/17 04:38 97.5 68 19 152/66 98 97.5 10/10/17 04:00 Room Air 10/10/17 00:58 175/74 10/10/17 00:00 Room Air 10/10/17 00:00 98.5 70 18 95 Room Air 98.5 10/09/17 20:44 74 154/64 10/09/17 20:04 78 20 Room Air 21 10/09/17 20:00 Room Air 10/09/17 20:00 98.7 74 18 154/64 95 Room Air 98.7 10/09/17 18:39 150/70 10/09/17 16:00 97.3 78 20 161/68 95 97.3 10/09/17 12:00 97.7 69 17 130/51 96 Room Air 97.7 10/09/17 11:45 Room Air Intake and Output 10/09/17 10/10/17 19:00 07:00 Intake Total 240 ml 480 ml Output Total 2100 ml Balance -1860 ml 480 ml Intake Oral 240 ml 480 ml Hemodialysis UF 2100 ml # Voids 2 # Bowel Movements 5 Laboratory Tests 10/09/17 15:45: C-Reactive Protein, Quantitative 5.8H 10/10/17 07:15: White Blood Count 4.1L, Red Blood Count 3.08L, Hemoglobin 10.3L, Hematocrit 29.5L, Mean Corpuscular Volume 96, Mean Corpuscular Hemoglobin 33.5H, Mean Corpuscular Hemoglobin Concent 35.0, Red Cell Distribution Width 11.2L, Platelet Count 228, Mean Platelet Volume 6.9, Neutrophils (%) (Auto) 60.6, Lymphocytes (%) (Auto) 24.9, Monocytes (%) (Auto) 10.0, Eosinophils (%) (Auto) 3.0, Basophils (%) (Auto) 1.5, Sodium Level 137, Potassium Level 3.7, Chloride Level 95L, Carbon Dioxide Level 37H, Anion Gap 6, Blood Urea Nitrogen 39H, Creatinine 4.7H, Estimat Glomerular Filtration Rate 9.3, Glucose Level 215H, Uric Acid 4.2, Calcium Level 9.1, Phosphorus Level 4.8, Magnesium Level 2.2, Total Bilirubin 0.9, Aspartate Amino Transf (AST/SGOT) 12L, Alanine Aminotransferase (ALT/SGPT) 9L, Alkaline Phosphatase 135H, Pro-B-Type Natriuretic Peptide 8987H, Total Protein 7.3, Albumin 3.2L, Globulin 4.1, Albumin/Globulin Ratio 0.8L Height (Feet): 5 Height (Inches): 0.00 Weight (Pounds): 160 General Appearance: no apparent distress Respiratory/Chest: decreased breath sounds Abdomen: non tender, soft Carl Daniels Oct 10, 2017 10:54
--- NOTE | 2017-10-10 11:54 | Neurology Progress Note ---
Interim History Interim History ROS Limited/Unobtainable: No Complaints: x 1-2 years of intermittent positional vertigo, tinnitus Events: more vertigo last x 2 days Objective Physical Exam Last Vital Signs Date Time Temp Pulse Resp B/P (MAP) Pulse Ox O2 Delivery O2 Flow Rate FiO2 10/10/17 08:36 141/53 10/10/17 08:36 72 10/10/17 08:00 98.6 20 98 Room Air 98.6 10/09/17 20:04 21 Laboratory Tests Test 10/09/17 15:45 10/10/17 07:15 C-Reactive Protein, Quantitative 5.8 mg/dL (0.00-0.90) H White Blood Count 4.1 K/UL (4.8-10.8) L Red Blood Count 3.08 M/UL (4.20-5.40) L Hemoglobin 10.3 G/DL (12.0-16.0) L Hematocrit 29.5 % (37.0-47.0) L Mean Corpuscular Volume 96 FL (80-99) Mean Corpuscular Hemoglobin 33.5 PG (27.0-31.0) H Mean Corpuscular Hemoglobin Concent 35.0 G/DL (32.0-36.0) Red Cell Distribution Width 11.2 % (11.6-14.8) L Platelet Count 228 K/UL (150-450) Mean Platelet Volume 6.9 FL (6.5-10.1) Neutrophils (%) (Auto) 60.6 % (45.0-75.0) Lymphocytes (%) (Auto) 24.9 % (20.0-45.0) Monocytes (%) (Auto) 10.0 % (1.0-10.0) Eosinophils (%) (Auto) 3.0 % (0.0-3.0) Basophils (%) (Auto) 1.5 % (0.0-2.0) Sodium Level 137 MMOL/L (136-145) Potassium Level 3.7 MMOL/L (3.5-5.1) Chloride Level 95 MMOL/L (98-107) L Carbon Dioxide Level 37 MMOL/L (21-32) H Anion Gap 6 mmol/L (5-15) Blood Urea Nitrogen 39 mg/dL (7-18) H Creatinine 4.7 MG/DL (0.55-1.30) H Estimat Glomerular Filtration Rate 9.3 mL/min (>60) Glucose Level 215 MG/DL (74-106) H Uric Acid 4.2 MG/DL (2.6-7.2) Calcium Level 9.1 MG/DL (8.5-10.1) Phosphorus Level 4.8 MG/DL (2.5-4.9) Magnesium Level 2.2 MG/DL (1.8-2.4) Total Bilirubin 0.9 MG/DL (0.2-1.0) Aspartate Amino Transf (AST/SGOT) 12 U/L (15-37) L Alanine Aminotransferase (ALT/SGPT) 9 U/L (12-78) L Alkaline Phosphatase 135 U/L (46-116) H Pro-B-Type Natriuretic Peptide 8987 pg/mL (0-125) H Total Protein 7.3 G/DL (6.4-8.2) Albumin 3.2 G/DL (3.4-5.0) L Globulin 4.1 g/dL Albumin/Globulin Ratio 0.8 (1.0-2.7) L General: well developed, well nourished, no acute distress Head: normocophalic, atraumatic Neck: no rigidity, other Neurologic Exam Mental Status: awake, alert, oriented x4 Speech: normal speech, no dysarthia Language: normal language, no aphasia Cranial Nerve II: fundus normal, visual villavicencio, no papilledema Cranial Nerves III, IV, : PERRLA, EOMI, pupils Cranial Nerve V: normal facial sensations, temporales function normal, masseters function normal, pterygoids function normal Cranial Nerve VII: no facial asymmetry, normal facial expressions Cranial Nerve VIII: normal hearing, no nystagmus, other - posotional vertigo Cranial Nerve IX: normal palate elevation, gag response Cranial Nerve X: no voice hoarseness Cranial Nerve XI: SCM symmetric, trapezii function normal Motor System: normal muscle tone, strength 5/5, no involuntary movement, no muscle wasting Sensory: normal pinprick Coordination: normal finger to nose bilaterally Deep Tendon Reflexes: 1+ bicep (L), 1+ bicep (R), 1+ tricep (L), 1+ tricep (R) , 1+ brachioradialis (L), 1+ brachioradialis (R), 1+ knee (L), 1+ knee (R), 1+ ankle (L), 1+ ankle (R) Reflexes: mute plantar (L), mute plantar (R) Gait: other - wabbly gait Impression/Recommendations Problems: (1) recurrent benign positional vertigo, (2) Tinnitus of both ears (3) ESRD (end stage renal disease) (4) Unsteady gait Status: not improved Recommendations #[id number] meclizine 12.5 tid prn ENT ok outpatient. JOEL RIZO Oct 10, 2017 11:54
[2017-10-10 12:00] VITALS: BP 151/65
[2017-10-10] MEDS ORDERED: Meclizine 25mg tab ORAL PRN (12:00)
[2017-10-10 16:00] VITALS: BP 139/63
--- NOTE | 2017-10-10 18:46 | General Progress Note ---
Assessment/Plan Assessment/Plan Assessment N/V combined with a sensation of vertigo - improved no acute intracrainial pathology on MRI Recommendations push po follow symptoms Outpatient EGD/colon - patient accepts responsibility for arranging GI f/u Subjective Allergies: Coded Allergies: No Known Allergies (Unverified , 05/12/17) Subjective seen this am feels ok no vomiting advised needs outpt GI f/u Objective Last 24 Hour Vital Signs Date Time Temp Pulse Resp B/P (MAP) Pulse Ox O2 Delivery O2 Flow Rate FiO2 10/10/17 17:15 139/63 10/10/17 16:00 98.1 72 20 139/63 96 Room Air 98.1 10/10/17 12:00 98.3 68 20 151/65 98 Room Air 98.3 10/10/17 08:36 141/53 10/10/17 08:36 72 141/53 10/10/17 08:36 72 141/53 10/10/17 08:00 98.6 72 20 141/53 98 Room Air 98.6 10/10/17 07:10 74 20 Room Air 21 10/10/17 04:38 97.5 68 19 152/66 98 97.5 10/10/17 04:00 Room Air 10/10/17 00:58 175/74 10/10/17 00:00 Room Air 10/10/17 00:00 98.5 70 18 95 Room Air 98.5 10/09/17 20:44 74 154/64 10/09/17 20:04 78 20 Room Air 21 10/09/17 20:00 Room Air 10/09/17 20:00 98.7 74 18 154/64 95 Room Air 98.7 Intake and Output 10/09/17 10/10/17 18:59 06:59 Intake Total 240 ml 480 ml Output Total 2100 ml Balance -1860 ml 480 ml Intake Oral 240 ml 480 ml Hemodialysis UF 2100 ml # Voids 2 # Bowel Movements 5 Laboratory Tests 10/10/17 07:15: White Blood Count 4.1L, Red Blood Count 3.08L, Hemoglobin 10.3L, Hematocrit 29.5L, Mean Corpuscular Volume 96, Mean Corpuscular Hemoglobin 33.5H, Mean Corpuscular Hemoglobin Concent 35.0, Red Cell Distribution Width 11.2L, Platelet Count 228, Mean Platelet Volume 6.9, Neutrophils (%) (Auto) 60.6, Lymphocytes (%) (Auto) 24.9, Monocytes (%) (Auto) 10.0, Eosinophils (%) (Auto) 3.0, Basophils (%) (Auto) 1.5, Sodium Level 137, Potassium Level 3.7, Chloride Level 95L, Carbon Dioxide Level 37H, Anion Gap 6, Blood Urea Nitrogen 39H, Creatinine 4.7H, Estimat Glomerular Filtration Rate 9.3, Glucose Level 215H, Uric Acid 4.2, Calcium Level 9.1, Phosphorus Level 4.8, Magnesium Level 2.2, Total Bilirubin 0.9, Aspartate Amino Transf (AST/SGOT) 12L, Alanine Aminotransferase (ALT/SGPT) 9L, Alkaline Phosphatase 135H, Pro-B-Type Natriuretic Peptide 8987H, Total Protein 7.3, Albumin 3.2L, Globulin 4.1, Albumin/Globulin Ratio 0.8L Height (Feet): 5 Height (Inches): 0.00 Weight (Pounds): 160 Objective WDWN NCAT supple CTA RRR abd soft ND no edema non focal LUE JANELL Vasquez Oct 10, 2017 18:46
[2017-10-10 20:00] VITALS: BP 122/52
[2017-10-10] MEDS: Miralax 17gm pkt ORAL SCH (21:00)
[2017-10-11] VITALS (7 sets, daily range): BP systolic 101–175; BP diastolic 50–68
[2017-10-11] MEDS: NovoLOG Insulin Flexpen SUBQ SCH ×4 (06:16→22:07)
[2017-10-11] MEDS: Metoprolol Tartrate 50mg tab ORAL SCH ×2 (09:00→18:00)
[2017-10-11] MEDS: Docusate 100mg cap ORAL SCH ×2 (09:00→18:43)
[2017-10-11] MEDS: Lisinopril 20mg tab ORAL SCH ×2 (09:00→18:00)
--- NOTE | 2017-10-11 09:23 | General Progress Note ---
Progress Note Progress Note REHAB FOLLOW UP PROGRESS NOTE: SUBJECTIVE: AT BED, NO N/V LEFT SHOULDER PAIN >> better + BM, OFF/ON HEADACHE / DIZZINESS >>> BETTER * CGA-MIN A BED KAREY TX. REVIEW OF SYSTEMS: EYES: History of left eye surgery. Denies diplopia. ENT: Denies dysphagia. CARDIOVASCULAR: No chest pain. PULMONARY: No shortness of breath. GASTROINTESTINAL: No abdominal pain. GENITOURINARY: End-stage renal disease on hemodialysis. MUSCULOSKELETAL: Left shoulder pain.NEUROLOGIC: OFF/ ON dizziness. PHYSICAL EXAMINATION: VITAL SIGNS: NOTED PER CHART, HEENT: No facial droop. NECK: Supple HEART: Regular rhythm and rate. LUNGS: Clear to auscultation bilaterally. ABDOMEN: Soft, nontender, and nondistended. Normal bowel sounds with no palpable or abnormal mass. EXTREMITIES: No pitting edema. No calf tenderness. No clubbing or cyanosis. NEUROLOGIC: The patient is alert, awake, and oriented. Movement of right upper and bilateral lower limb antigravity of the left limb, movement of left shoulder is strictly limited with pain LABORATORY AND DIAGNOSTIC DATA: NOTED PER CHART. left shoulder mri >> IMPRESSION: Full thickness tear of the supraspinatus tendon with a 2 cm proximal retraction of the musculotendinous junction. Diffuse, moderate rotator cuff tendinopathy with enlargement and intermediate heterogeneous signal involving all portions of the rotator cuff. Scattered likely associated heterogeneous signal within portions of the rotator cuff muscles as described above. 1 cm septated superior para labral cyst adjacent to the supraspinatus tendon. Moderate degeneration of the glenoid labrum. Arthropathy of the AC joint ASSESSMENT: The patient is a 67-year-old female with; 1. Status post fall having dizziness. PER NEURO >>> blunt head trauma with mild cerebral concussion presenting with persistent headaches. + BENIGN POSITIONAL VERTIGO. 2. Head trauma. 3. Evidence of questionable hydrocephalus with CT scan of the head >> NO REPORT IN MRI . 4. Gait abnormality. 5. Debility and functional decline. 6. Limb pain. 7. Left shoulder contusion versus ligament tear. 8. End-stage renal disease on hemodialysis. 9. Hypertension. 10. Clinical peripheral polyneuropathy and neuropathic pain. 11. Hypothyroidism. 12. Debility and functional decline and gait abnormality. LEFT SHOULDER RCT + RECTAL ALPA RECOMMENDATION: 24-hour nursing care. Physical therapy, full range of motion, transfer training, endurance, balance and gait training, fall prevention with appropriate assisted device. Occupational therapy for activities of daily living equipment, function and transfer training of upper extremity range of motion and strengthening exercise. Nursing for her bowel and bladder, medication regimen, skin care prevention and pressure ulcer, the patient and family education. lidocaine patch and lidocaine cream to be applied to left shoulder for pain control. ON ULTRAM left shoulder MRI >> ORTHO FOR F/U AND CARE neurologist >> F/U >> ON ANTIVERT Continue medical management per Medicine. CORBY YODER. CHART REVIEWED. SEE ORDERS. VRE CONTACT ISOLATION. PT >> SHOULDER EXERCISE PROGRAM KURT KAYE M.D. Oct 11, 2017 09:23
[2017-10-11] MEDS: traMADol 50mg tab ORAL PRN (10:13)
[2017-10-11] MEDS: Heparin 5000 units/ml inj SUBQ SCH ×2 (10:18→22:08)
--- NOTE | 2017-10-11 11:30 | General Progress Note ---
Assessment/Plan Assessment/Plan 1. Anemia due to underlying chronic disease. --> Blood transfusion no required as anemia mild at this time. --> Continue to closely monitor. --> Unless hemoglobin less than 9, she does not require anemia workup. --> Anemia has been mild and hgb >11. Hgb stable. 2. Hyperkalemia. --> The patient given Kayexalate management per Nephrology Service. 3. End-stage renal disease, on hemodialysis three times a week. 4. History of coronary artery disease. 5. History of anemia, low B12, low iron. --> Iron levels 82 6. Dizziness and unsteady gait. 7. Leukopenia. WBC count has been downtrending. Subjective Date patient seen: Oct 10, 2017 Constitutional: Denies: no symptoms, chills, diaphoresis, fever, malaise, weakness, other HEENT: Denies: no symptoms, eye pain, blurred vision, tearing, double vision, ear pain, ear discharge, nose pain, nose congestion, throat pain, throat swelling, mouth pain, mouth swelling, other Cardiovascular: Denies: no symptoms, chest pain, edema, irregular heart rate, lightheadedness, palpitations, syncope, other Respiratory: Denies: no symptoms, cough, orthopnea, shortness of breath, SOB with excertion, SOB at rest, sputum, stridor, wheezing, other Gastrointestinal/Abdominal: Denies: no symptoms, abdomen distended, abdominal pain, black stools, tarry stools, blood in stool, constipated, diarrhea, difficulty swallowing, nausea, poor appetite, poor fluid intake, rectal bleeding , vomiting, other Genitourinary: Denies: no symptoms, burning, discharge, frequency, flank pain, hematuria, incontinence, pain, urgency, other Neurologic/Psychiatric: Denies: no symptoms, anxiety, depressed, emotional problems, headache, numbness, paresthesia, pre-existing deficit, seizure, tingling, tremors, weakness, other Allergies: Coded Allergies: No Known Allergies (Unverified , 05/12/17) Subjective No major events overnight. Pain improved. Wbc downtrending. Objective Last 24 Hour Vital Signs Date Time Temp Pulse Resp B/P (MAP) Pulse Ox O2 Delivery O2 Flow Rate FiO2 10/11/17 09:00 143/53 10/11/17 09:00 65 143/53 10/11/17 09:00 65 143/53 10/11/17 08:19 63 18 Room Air 21 10/11/17 08:00 98.1 65 18 143/53 100 Room Air 98.1 10/11/17 04:00 98.4 71 20 154/60 100 98.4 10/11/17 00:00 99.0 70 19 141/50 100 99.0 10/10/17 20:52 75 122/52 10/10/17 20:00 98.7 75 20 122/52 99 98.7 10/10/17 19:04 70 20 Room Air 21 10/10/17 17:15 139/63 10/10/17 16:00 98.1 72 20 139/63 96 Room Air 98.1 10/10/17 12:00 98.3 68 20 151/65 98 Room Air 98.3 Intake and Output 10/10/17 10/11/17 20:00 08:00 Intake Total 480 ml Balance 480 ml Intake Oral 480 ml # Voids 3 2 # Bowel Movements 1 Labs Test 10/09/17 09:25 10/09/17 15:45 10/10/17 07:15 Stool Occult Blood Negative (NEGATIVE) C-Reactive Protein, Quantitative 5.8 mg/dL (0.00-0.90) White Blood Count 4.1 K/UL (4.8-10.8) Red Blood Count 3.08 M/UL (4.20-5.40) Hemoglobin 10.3 G/DL (12.0-16.0) Hematocrit 29.5 % (37.0-47.0) Mean Corpuscular Volume 96 FL (80-99) Mean Corpuscular Hemoglobin 33.5 PG (27.0-31.0) Mean Corpuscular Hemoglobin Concent 35.0 G/DL (32.0-36.0) Red Cell Distribution Width 11.2 % (11.6-14.8) Platelet Count 228 K/UL (150-450) Mean Platelet Volume 6.9 FL (6.5-10.1) Neutrophils (%) (Auto) 60.6 % (45.0-75.0) Lymphocytes (%) (Auto) 24.9 % (20.0-45.0) Monocytes (%) (Auto) 10.0 % (1.0-10.0) Eosinophils (%) (Auto) 3.0 % (0.0-3.0) Basophils (%) (Auto) 1.5 % (0.0-2.0) Sodium Level 137 MMOL/L (136-145) Potassium Level 3.7 MMOL/L (3.5-5.1) Chloride Level 95 MMOL/L (98-107) Carbon Dioxide Level 37 MMOL/L (21-32) Anion Gap 6 mmol/L (5-15) Blood Urea Nitrogen 39 mg/dL (7-18) Creatinine 4.7 MG/DL (0.55-1.30) Estimat Glomerular Filtration Rate 9.3 mL/min (>60) Glucose Level 215 MG/DL (74-106) Uric Acid 4.2 MG/DL (2.6-7.2) Calcium Level 9.1 MG/DL (8.5-10.1) Phosphorus Level 4.8 MG/DL (2.5-4.9) Magnesium Level 2.2 MG/DL (1.8-2.4) Total Bilirubin 0.9 MG/DL (0.2-1.0) Aspartate Amino Transf (AST/SGOT) 12 U/L (15-37) Alanine Aminotransferase (ALT/SGPT) 9 U/L (12-78) Alkaline Phosphatase 135 U/L (46-116) Pro-B-Type Natriuretic Peptide 8987 pg/mL (0-125) Total Protein 7.3 G/DL (6.4-8.2) Albumin 3.2 G/DL (3.4-5.0) Globulin 4.1 g/dL Albumin/Globulin Ratio 0.8 (1.0-2.7) Height (Feet): 5 Height (Inches): 0.00 Weight (Pounds): 160 Respiratory/Chest: decreased breath sounds Abdomen: non tender, soft Carl Daniels Oct 11, 2017 11:30
--- NOTE | 2017-10-11 12:16 | Pulmonology Progress Note ---
Assessment/Plan Problems: (1) Hyperkalemia (2) Unsteady gait (3) Dizziness (4) ESRD (end stage renal disease) (5) Diabetic nephropathy with proteinuria Assessment/Plan no new complains doing better h/h stable all reviewed HD as per nephrology check electrolytes sliding scale diabetic diet symptomatic treatment med/surg pt/ot dc planning Subjective ROS Limited/Unobtainable: No Constitutional: Reports: no symptoms HEENT: Repors: no symptoms Respiratory: Reports: no symptoms Allergies: Coded Allergies: No Known Allergies (Unverified , 05/12/17) Objective Last 24 Hour Vital Signs Date Time Temp Pulse Resp B/P (MAP) Pulse Ox O2 Delivery O2 Flow Rate FiO2 10/11/17 09:00 143/53 10/11/17 09:00 65 143/53 10/11/17 09:00 65 143/53 10/11/17 08:19 63 18 Room Air 21 10/11/17 08:00 98.1 65 18 143/53 100 Room Air 98.1 10/11/17 04:00 98.4 71 20 154/60 100 98.4 10/11/17 00:00 99.0 70 19 141/50 100 99.0 10/10/17 20:52 75 122/52 10/10/17 20:00 98.7 75 20 122/52 99 98.7 10/10/17 19:04 70 20 Room Air 21 10/10/17 17:15 139/63 10/10/17 16:00 98.1 72 20 139/63 96 Room Air 98.1 Intake and Output 10/10/17 10/11/17 19:00 07:00 Intake Total 480 ml Balance 480 ml Intake Oral 480 ml # Voids 3 2 # Bowel Movements 1 Objective General Appearance: WD/WN Lines, tubes and drains: peripheral HEENT: normocephalic, atraumatic Neck: non-tender, normal alignment Respiratory/Chest: chest wall non-tender, lungs clear Breasts: no masses Cardiovascular/Chest: normal peripheral pulses, normal rate Abdomen: normal bowel sounds, non tender Genitourinary/Rectal: normal genital exam, heme negative stool Extremities: normal range of motion, non-tender Skin Exam: normal pigmentation Current Medications Medications (Trade) Dose Ordered Sig/Toya Route PRN Reason Start Time Stop Time Status Last Admin Dose Admin Acetaminophen (Tylenol) 650 mg Q4H PRN ORAL fever 10/07/17 14:32 11/04/17 14:31 10/08/17 05:32 Acetaminophen (Tylenol) 650 mg TID ORAL 10/07/17 18:00 11/06/17 12:59 10/11/17 12:10 Clonidine HCl (Catapres Tab) 0.1 mg Q4H PRN ORAL bp over 160 syst 10/07/17 14:33 11/05/17 14:32 10/10/17 00:58 Dextrose (Dextrose 50%) STAT PRN IV Hypoglycemia 10/07/17 14:33 11/04/17 14:32 Docusate Sodium (Colace) 100 mg TWICE A DAY ORAL 10/09/17 09:00 11/08/17 08:59 10/10/17 17:15 Gabapentin (Neurontin) 300 mg BID ORAL 10/08/17 18:00 11/05/17 20:59 10/11/17 10:14 Heparin Sodium (Porcine) (Heparin 5000 units/ml) 5,000 units EVERY 12 HOURS SUBQ 10/07/17 21:00 11/05/17 08:59 10/11/17 10:18 Insulin Aspart (NovoLOG) BEFORE MEALS AND HS SUBQ 10/07/17 16:30 11/05/17 06:29 10/11/17 12:12 Lansoprazole (Prevacid) 30 mg DAILY ORAL 10/08/17 09:00 11/06/17 12:29 10/11/17 10:13 Levothyroxine Sodium (Synthroid) 50 mcg DAILY ORAL 10/08/17 09:00 11/05/17 08:59 10/11/17 10:14 Lidocaine (Lidoderm 5% PATCH) 1 patch DAILY@2100 TDERMAL 10/07/17 21:00 11/05/17 20:59 10/10/17 20:59 Lidocaine (Xylocaine 5% cream) 1 applic QID TOPIC 10/07/17 18:00 11/05/17 17:59 10/11/17 12:10 Lisinopril (Prinivil) 20 mg BID ORAL 10/08/17 18:00 11/05/17 08:59 10/10/17 17:15 Meclizine HCl (Antivert) 12.5 mg Q6H PRN ORAL for dizziness 10/10/17 12:00 11/09/17 11:59 10/10/17 12:25 Metoclopramide HCl (Reglan) 5 mg AC+HS ORAL 10/07/17 16:30 11/05/17 13:29 10/11/17 12:09 Metoprolol Tartrate (Lopressor) 50 mg EVERY 12 HOURS ORAL 10/07/17 21:00 11/05/17 08:59 10/10/17 20:52 Nifedipine (Procardia XL) 90 mg DAILY ORAL 10/08/17 09:00 11/05/17 08:59 10/10/17 08:36 Ondansetron HCl (Zofran) 4 mg Q6H PRN IVP Nausea & Vomiting 10/07/17 14:35 11/05/17 14:34 10/10/17 12:16 Polyethylene Glycol (Miralax) 17 gm BEDTIME ORAL 10/09/17 21:00 11/08/17 20:59 Polyethylene Glycol (Miralax) 17 gm HSPRN PRN ORAL Constipation 10/07/17 14:35 11/04/17 14:34 Sevelamer Carbonate (Renvela) 800 mg THREE TIMES A DAY ORAL 10/07/17 18:00 11/06/17 12:59 10/11/17 12:09 Tramadol HCl (Ultram) 50 mg Q6H PRN ORAL Severe Pain (Pain Scale 7-10) 10/07/17 14:35 10/14/17 14:34 10/11/17 10:13 Zolpidem Tartrate (Ambien) 5 mg HSPRN PRN ORAL Insomnia 10/07/17 14:35 10/12/17 14:34 LEXI THOMAS Oct 11, 2017 12:16
--- NOTE | 2017-10-11 15:52 | Nephrology Progress Note ---
Assessment/Plan Problem List: (1) Hyperkalemia (2) ESRD (end stage renal disease) (3) Dizziness (4) Hypertensive kidney disease Assessment (1) ESRD (end stage renal disease) on dialysis has high K (2) h/o CAD (3) Hypertensive kidney disease (4) Diabetic nephropathy with proteinuria (5) h/o Anemia , low B12 and low Iron (6) Humeral head trauma (7) Dizziness and unsteady gait Plan Renal diet HTN, OOC , meds adjusted Reglan PO HD 10/09 next 10/11 Per orders pain management PT OT Subjective ROS Limited/Unobtainable: No Constitutional: Reports: malaise Subjective no more vomiting Objective Objective Last 24 Hour Vital Signs Date Time Temp Pulse Resp B/P (MAP) Pulse Ox O2 Delivery O2 Flow Rate FiO2 10/11/17 12:29 175/85 10/11/17 12:00 98.3 74 20 175/67 98 Room Air 98.3 10/11/17 09:00 143/53 10/11/17 09:00 65 143/53 10/11/17 09:00 65 143/53 10/11/17 08:19 63 18 Room Air 21 10/11/17 08:00 98.1 65 18 143/53 100 Room Air 98.1 10/11/17 04:00 98.4 71 20 154/60 100 98.4 10/11/17 00:00 99.0 70 19 141/50 100 99.0 10/10/17 20:52 75 122/52 10/10/17 20:00 98.7 75 20 122/52 99 98.7 10/10/17 19:04 70 20 Room Air 21 10/10/17 17:15 139/63 10/10/17 16:00 98.1 72 20 139/63 96 Room Air 98.1 Intake and Output 10/10/17 10/11/17 19:00 07:00 Intake Total 480 ml Balance 480 ml Intake Oral 480 ml # Voids 3 2 # Bowel Movements 1 Height (Feet): 5 Height (Inches): 0.00 Weight (Pounds): 160 General Appearance: no apparent distress Cardiovascular: regular rhythm Respiratory/Chest: lungs clear Abdomen: soft Objective no change VOLODYMYR DOUGLAS Oct 11, 2017 15:52
--- NOTE | 2017-10-11 17:01 | General Progress Note ---
Assessment/Plan Assessment/Plan Assessment N/V combined with a sensation of vertigo - improved no acute intracrainial pathology on MRI Recommendations push po follow symptoms Outpatient EGD/colon - patient accepts responsibility for arranging GI f/u Subjective Allergies: Coded Allergies: No Known Allergies (Unverified , 05/12/17) Subjective seen this am feels ok no vomiting advised needs outpt GI f/u Objective Last 24 Hour Vital Signs Date Time Temp Pulse Resp B/P (MAP) Pulse Ox O2 Delivery O2 Flow Rate FiO2 10/11/17 12:29 175/85 10/11/17 12:00 98.3 74 20 175/67 98 Room Air 98.3 10/11/17 09:00 143/53 10/11/17 09:00 65 143/53 10/11/17 09:00 65 143/53 10/11/17 08:19 63 18 Room Air 21 10/11/17 08:00 98.1 65 18 143/53 100 Room Air 98.1 10/11/17 04:00 98.4 71 20 154/60 100 98.4 10/11/17 00:00 99.0 70 19 141/50 100 99.0 10/10/17 20:52 75 122/52 10/10/17 20:00 98.7 75 20 122/52 99 98.7 10/10/17 19:04 70 20 Room Air 21 10/10/17 17:15 139/63 Intake and Output 10/10/17 10/11/17 19:00 07:00 Intake Total 480 ml Balance 480 ml Intake Oral 480 ml # Voids 3 2 # Bowel Movements 1 Height (Feet): 5 Height (Inches): 0.00 Weight (Pounds): 160 Objective WDWN NCAT supple CTA RRR abd soft ND no edema non focal LUE sling JANELL SERNA Oct 11, 2017 17:01
[2017-10-11] MEDS: Miralax 17gm pkt ORAL SCH (21:00)
[2017-10-12] VITALS: BP 119/68
[2017-10-12 04:00] VITALS: BP 127/65
[2017-10-12] MEDS: NovoLOG Insulin Flexpen SUBQ SCH ×4 (06:17→22:03)
--- NOTE | 2017-10-12 07:03 | General Progress Note ---
Progress Note Progress Note REHAB FOLLOW UP PROGRESS NOTE: SUBJECTIVE: AT BED, SLEPT WELL LEFT SHOULDER PAIN >>^ WITH ABDUCTION AND FLEXION + BM, YESTERDAY. NO HEADACHE / DIZZINESS * CGA-SB A BED MOB, [place]. REVIEW OF SYSTEMS: EYES: History of left eye surgery. Denies diplopia. ENT: Denies dysphagia. CARDIOVASCULAR: No chest pain. PULMONARY: No shortness of breath. GASTROINTESTINAL: No abdominal pain. GENITOURINARY: End-stage renal disease on hemodialysis. MUSCULOSKELETAL: Left shoulder pain.NEUROLOGIC: NO KNIGHT NOW, NO DIZZINESS NOW. PHYSICAL EXAMINATION: VITAL SIGNS: NOTED PER CHART, HEENT: No facial droop. NECK: Supple HEART: Regular rhythm and rate. LUNGS: Clear to auscultation bilaterally. ABDOMEN: Soft, nontender, and nondistended. Normal bowel sounds with no palpable or abnormal mass. EXTREMITIES: No pitting edema. No calf tenderness. No clubbing or cyanosis. NEUROLOGIC: The patient is alert, awake, and oriented. Movement of right upper and bilateral lower limb antigravity of the left limb, movement of left shoulder is strictly limited with pain LABORATORY AND DIAGNOSTIC DATA: NOTED PER CHART. left shoulder mri >> IMPRESSION: Full thickness tear of the supraspinatus tendon with a 2 cm proximal retraction of the musculotendinous junction. Diffuse, moderate rotator cuff tendinopathy with enlargement and intermediate heterogeneous signal involving all portions of the rotator cuff. Scattered likely associated heterogeneous signal within portions of the rotator cuff muscles as described above. 1 cm septated superior para labral cyst adjacent to the supraspinatus tendon. Moderate degeneration of the glenoid labrum. Arthropathy of the AC joint ASSESSMENT: The patient is a 67-year-old female with; 1. Status post fall having dizziness. PER NEURO >>> blunt head trauma with mild cerebral concussion presenting with persistent headaches. + BENIGN POSITIONAL VERTIGO. 2. Head trauma. 3. Evidence of questionable hydrocephalus with CT scan of the head >> NO REPORT IN MRI . 4. Gait abnormality. 5. Debility and functional decline. 6. Limb pain. 7. Left shoulder contusion versus ligament tear. 8. End-stage renal disease on hemodialysis. 9. Hypertension. 10. Clinical peripheral polyneuropathy and neuropathic pain. 11. Hypothyroidism. 12. Debility and functional decline and gait abnormality. LEFT SHOULDER RCT + RECTAL ALPA RECOMMENDATION: 24-hour nursing care. Physical therapy, full range of motion, transfer training, endurance, balance and gait training, fall prevention with appropriate assisted device. Occupational therapy for activities of daily living equipment, function and transfer training of upper extremity range of motion and strengthening exercise. Nursing for her bowel and bladder, medication regimen, skin care prevention and pressure ulcer, the patient and family education. lidocaine patch and lidocaine cream to be applied to left shoulder for pain control. ON ULTRAM neurologist >> F/U >> ON ANTIVERT Continue medical management per Medicine. [place], RADAMESALAX. CHART REVIEWED. SEE ORDERS. VRE CONTACT ISOLATION. PT >> SHOULDER EXERCISE PROGRAM left shoulder >> ORTHO FOR F/U AND CARE , ? OUTPATIENT INJECTION VS SURGERY KURT KAYE M.D. Oct 12, 2017 07:03
[2017-10-12 08:00] VITALS: BP 155/59
[2017-10-12] MEDS: Docusate 100mg cap ORAL SCH ×2 (08:47→16:46)
[2017-10-12] MEDS: Lisinopril 20mg tab ORAL SCH ×2 (08:50→16:47)
[2017-10-12] MEDS: Metoprolol Tartrate 50mg tab ORAL SCH ×2 (08:51→22:20)
[2017-10-12] MEDS: Heparin 5000 units/ml inj SUBQ SCH ×2 (08:51→22:22)
--- NOTE | 2017-10-12 10:15 | General Progress Note ---
Assessment/Plan Assessment/Plan 1. Anemia due to underlying chronic disease. --> Blood transfusion no required as anemia mild at this time. --> Continue to closely monitor and trend cbc daily. --> Unless hemoglobin less than 9, she does not require anemia workup. --> Anemia has been mild and hgb >11. Hgb stable. 2. Hyperkalemia. --> The patient given Kayexalate management per Nephrology Service. 3. End-stage renal disease, on hemodialysis three times a week. 4. History of coronary artery disease. 5. History of anemia, low B12, low iron. --> Iron levels 82 6. Dizziness and unsteady gait. --> Vertigo improved. 7. Leukopenia. --> WBC count has been downtrending. --> Monitor. Subjective Date patient seen: Oct 11, 2017 Constitutional: Denies: no symptoms, chills, diaphoresis, fever, malaise, weakness, other HEENT: Denies: no symptoms, eye pain, blurred vision, tearing, double vision, ear pain, ear discharge, nose pain, nose congestion, throat pain, throat swelling, mouth pain, mouth swelling, other Cardiovascular: Denies: no symptoms, chest pain, edema, irregular heart rate, lightheadedness, palpitations, syncope, other Respiratory: Denies: no symptoms, cough, orthopnea, shortness of breath, SOB with excertion, SOB at rest, sputum, stridor, wheezing, other Gastrointestinal/Abdominal: Denies: no symptoms, abdomen distended, abdominal pain, black stools, tarry stools, blood in stool, constipated, diarrhea, difficulty swallowing, nausea, poor appetite, poor fluid intake, rectal bleeding , vomiting, other Genitourinary: Denies: no symptoms, burning, discharge, frequency, flank pain, hematuria, incontinence, pain, urgency, other Neurologic/Psychiatric: Denies: no symptoms, anxiety, depressed, emotional problems, headache, numbness, paresthesia, pre-existing deficit, seizure, tingling, tremors, weakness, other Hematologic/Lymphatic: Reports: anemia Allergies: Coded Allergies: No Known Allergies (Unverified , 05/12/17) Subjective No more vomiting. H/H stable. Objective Last 24 Hour Vital Signs Date Time Temp Pulse Resp B/P (MAP) Pulse Ox O2 Delivery O2 Flow Rate FiO2 3/12/18 08:52 98.0 10/12/17 08:51 78 155/59 10/12/17 08:50 155/59 10/12/17 08:50 78 155/59 10/12/17 08:24 75 20 Room Air 21 10/12/17 04:00 98.0 72 20 127/65 100 Room Air 98.0 10/12/17 00:00 97.7 75 20 119/68 98 97.7 10/11/17 21:04 77 20 Room Air 21 10/11/17 20:00 98.6 77 20 101/62 95 98.6 10/11/17 19:42 98.2 10/11/17 18:54 Room Air 10/11/17 18:48 98.2 72 20 127/59 Room Air 98.2 10/11/17 18:00 125/52 10/11/17 18:00 72 125/52 10/11/17 15:00 Room Air 10/11/17 15:00 97.8 70 20 150/68 Room Air 97.8 10/11/17 12:29 175/85 10/11/17 12:00 98.3 74 20 175/67 98 Room Air 98.3 Intake and Output 10/11/17 10/12/17 19:00 07:00 Intake Total 400 ml Output Total 2174 ml Balance -2174 ml 400 ml Intake Oral 400 ml Hemodialysis UF 2174 ml # Voids 1 Height (Feet): 5 Height (Inches): 0.00 Weight (Pounds): 160 Respiratory/Chest: decreased breath sounds Abdomen: non tender, soft Edema: trace edema Carl Daniels Oct 12, 2017 10:15
--- NOTE | 2017-10-12 10:40 | Nephrology Progress Note ---
Assessment/Plan Problem List: (1) Hyperkalemia (2) ESRD (end stage renal disease) (3) Dizziness (4) Hypertensive kidney disease Assessment (1) ESRD (end stage renal disease) on dialysis has high K (2) h/o CAD (3) Hypertensive kidney disease (4) Diabetic nephropathy with proteinuria (5) h/o Anemia , low B12 and low Iron (6) Humeral head trauma (7) Dizziness and unsteady gait Plan Renal diet- HTN, OOC , meds adjusted Reglan PO HD 10/09 next 10/13 Per orders pain management PT OT Subjective ROS Limited/Unobtainable: No Subjective no more vomiting Objective Objective Last 24 Hour Vital Signs Date Time Temp Pulse Resp B/P (MAP) Pulse Ox O2 Delivery O2 Flow Rate FiO2 10/12/17 08:52 98.0 10/12/17 08:51 78 155/59 10/12/17 08:50 155/59 10/12/17 08:50 78 155/59 10/12/17 08:24 75 20 Room Air 21 10/12/17 08:00 97.9 18 155/59 96 Room Air 97.9 10/12/17 04:00 98.0 72 20 127/65 100 Room Air 98.0 10/12/17 00:00 97.7 75 20 119/68 98 97.7 10/11/17 21:04 77 20 Room Air 21 10/11/17 20:00 98.6 77 20 101/62 95 98.6 10/11/17 19:42 98.2 10/11/17 18:54 Room Air 10/11/17 18:48 98.2 72 20 127/59 Room Air 98.2 10/11/17 18:00 125/52 10/11/17 18:00 72 125/52 10/11/17 15:00 Room Air 10/11/17 15:00 97.8 70 20 150/68 Room Air 97.8 10/11/17 12:29 175/85 10/11/17 12:00 98.3 74 20 175/67 98 Room Air 98.3 Intake and Output 10/11/17 10/12/17 19:00 07:00 Intake Total 400 ml Output Total 2174 ml Balance -2174 ml 400 ml Intake Oral 400 ml Hemodialysis UF 2174 ml # Voids 1 Current Medications Medications (Trade) Dose Ordered Sig/Toya Route PRN Reason Start Time Stop Time Status Last Admin Dose Admin Acetaminophen (Tylenol) 650 mg Q4H PRN ORAL fever 10/07/17 14:32 11/04/17 14:31 10/08/17 05:32 Acetaminophen (Tylenol) 650 mg TID ORAL 10/07/17 18:00 11/06/17 12:59 10/12/17 08:52 Clonidine HCl (Catapres Tab) 0.1 mg Q4H PRN ORAL bp over 160 syst 10/07/17 14:33 11/05/17 14:32 10/11/17 12:29 Dextrose (Dextrose 50%) STAT PRN IV Hypoglycemia 10/07/17 14:33 11/04/17 14:32 Docusate Sodium (Colace) 100 mg TWICE A DAY ORAL 10/09/17 09:00 11/08/17 08:59 10/12/17 08:47 Gabapentin (Neurontin) 300 mg BID ORAL 10/08/17 18:00 11/05/17 20:59 10/12/17 08:47 Heparin Sodium (Porcine) (Heparin 5000 units/ml) 5,000 units EVERY 12 HOURS SUBQ 10/07/17 21:00 11/05/17 08:59 10/12/17 08:51 Insulin Aspart (NovoLOG) BEFORE MEALS AND HS SUBQ 10/07/17 16:30 11/05/17 06:29 10/12/17 06:17 Lansoprazole (Prevacid) 30 mg DAILY ORAL 10/08/17 09:00 11/06/17 12:29 10/12/17 08:47 Levothyroxine Sodium (Synthroid) 50 mcg DAILY ORAL 10/08/17 09:00 11/05/17 08:59 10/12/17 08:48 Lidocaine (Lidoderm 5% PATCH) 1 patch DAILY@2100 TDERMAL 10/07/17 21:00 11/05/17 20:59 10/11/17 22:06 Lidocaine (Xylocaine 5% cream) 1 applic QID TOPIC 10/07/17 18:00 11/05/17 17:59 10/12/17 08:52 Lisinopril (Prinivil) 20 mg BID ORAL 10/08/17 18:00 11/05/17 08:59 10/12/17 08:50 Meclizine HCl (Antivert) 12.5 mg Q6H PRN ORAL for dizziness 10/10/17 12:00 11/09/17 11:59 10/10/17 12:25 Metoclopramide HCl (Reglan) 5 mg AC+HS ORAL 10/07/17 16:30 11/05/17 13:29 10/12/17 06:16 Metoprolol Tartrate (Lopressor) 50 mg EVERY 12 HOURS ORAL 10/07/17 21:00 11/05/17 08:59 10/12/17 08:51 Nifedipine (Procardia XL) 90 mg DAILY ORAL 10/08/17 09:00 11/05/17 08:59 10/12/17 08:50 Ondansetron HCl (Zofran) 4 mg Q6H PRN IVP Nausea & Vomiting 10/07/17 14:35 11/05/17 14:34 10/11/17 19:58 Polyethylene Glycol (Miralax) 17 gm BEDTIME ORAL 10/09/17 21:00 11/08/17 20:59 Polyethylene Glycol (Miralax) 17 gm HSPRN PRN ORAL Constipation 10/07/17 14:35 11/04/17 14:34 Sevelamer Carbonate (Renvela) 800 mg THREE TIMES A DAY ORAL 10/07/17 18:00 11/06/17 12:59 10/12/17 08:47 Tramadol HCl (Ultram) 50 mg Q6H PRN ORAL Severe Pain (Pain Scale 7-10) 10/07/17 14:35 10/14/17 14:34 10/11/17 10:13 Zolpidem Tartrate (Ambien) 5 mg HSPRN PRN ORAL Insomnia 10/07/17 14:35 10/12/17 14:34 Height (Feet): 5 Height (Inches): 0.00 Weight (Pounds): 160 Cardiovascular: normal rate Respiratory/Chest: lungs clear Abdomen: soft Objective no change VOLODYMYR DOUGLAS 12, 2018 10:40
[2017-10-12 12:00] VITALS: BP 114/46
[2017-10-12 16:00] VITALS: BP 115/51
--- NOTE | 2017-10-12 17:35 | Pulmonology Progress Note ---
Assessment/Plan Problems: (1) Hyperkalemia (2) Unsteady gait (3) Dizziness (4) ESRD (end stage renal disease) (5) Diabetic nephropathy with proteinuria Assessment/Plan no new complains doing better h/h stable all reviewed HD as per nephrology check electrolytes sliding scale diabetic diet symptomatic treatment med/surg pt/ot dc planning with outpatient HD Subjective ROS Limited/Unobtainable: No Allergies: Coded Allergies: No Known Allergies (Unverified , 05/12/17) Objective Last 24 Hour Vital Signs Date Time Temp Pulse Resp B/P (MAP) Pulse Ox O2 Delivery O2 Flow Rate FiO2 10/12/17 16:47 115/65 10/12/17 16:00 97.7 64 18 115/51 98 Room Air 97.7 10/12/17 12:00 97.2 66 18 114/46 96 Room Air 97.2 10/12/17 08:52 98.0 10/12/17 08:51 78 155/59 10/12/17 08:50 155/59 10/12/17 08:50 78 155/59 10/12/17 08:24 75 20 Room Air 21 10/12/17 08:00 97.9 18 155/59 96 Room Air 97.9 10/12/17 04:00 98.0 72 20 127/65 100 Room Air 98.0 10/12/17 00:00 97.7 75 20 119/68 98 97.7 10/11/17 21:04 77 20 Room Air 21 10/11/17 20:00 98.6 77 20 101/62 95 98.6 10/11/17 19:42 98.2 10/11/17 18:54 Room Air 10/11/17 18:48 98.2 72 20 127/59 Room Air 98.2 10/11/17 18:00 125/52 10/11/17 18:00 72 125/52 Intake and Output 10/11/17 10/12/17 19:00 07:00 Intake Total 400 ml Output Total 2174 ml Balance -2174 ml 400 ml Intake Oral 400 ml Hemodialysis UF 2174 ml # Voids 1 Objective General Appearance: WD/WN Lines, tubes and drains: peripheral HEENT: normocephalic, atraumatic Neck: non-tender, normal alignment Respiratory/Chest: chest wall non-tender, lungs clear Breasts: no masses Cardiovascular/Chest: normal peripheral pulses, normal rate Abdomen: normal bowel sounds, non tender Genitourinary/Rectal: normal genital exam, heme negative stool Extremities: normal range of motion, non-tender Skin Exam: normal pigmentation Current Medications Medications (Trade) Dose Ordered Sig/Toya Route PRN Reason Start Time Stop Time Status Last Admin Dose Admin Acetaminophen (Tylenol) 650 mg Q4H PRN ORAL fever 10/07/17 14:32 11/04/17 14:31 10/08/17 05:32 Acetaminophen (Tylenol) 650 mg TID ORAL 10/07/17 18:00 11/06/17 12:59 10/12/17 16:47 Clonidine HCl (Catapres Tab) 0.1 mg Q4H PRN ORAL bp over 160 syst 10/07/17 14:33 11/05/17 14:32 10/11/17 12:29 Dextrose (Dextrose 50%) STAT PRN IV Hypoglycemia 10/07/17 14:33 11/04/17 14:32 Docusate Sodium (Colace) 100 mg TWICE A DAY ORAL 10/09/17 09:00 11/08/17 08:59 10/12/17 16:46 Gabapentin (Neurontin) 300 mg BID ORAL 10/08/17 18:00 11/05/17 20:59 10/12/17 16:46 Heparin Sodium (Porcine) (Heparin 5000 units/ml) 5,000 units EVERY 12 HOURS SUBQ 10/07/17 21:00 11/05/17 08:59 10/12/17 08:51 Insulin Aspart (NovoLOG) BEFORE MEALS AND HS SUBQ 10/07/17 16:30 11/05/17 06:29 10/12/17 16:49 Lansoprazole (Prevacid) 30 mg DAILY ORAL 10/08/17 09:00 11/06/17 12:29 10/12/17 08:47 Levothyroxine Sodium (Synthroid) 50 mcg DAILY ORAL 10/08/17 09:00 11/05/17 08:59 10/12/17 08:48 Lidocaine (Lidoderm 5% PATCH) 1 patch DAILY@2100 TDERMAL 10/07/17 21:00 11/05/17 20:59 10/11/17 22:06 Lidocaine (Xylocaine 5% cream) 1 applic QID TOPIC 10/07/17 18:00 4/5/18 17:59 10/12/17 12:25 Lisinopril (Prinivil) 20 mg BID ORAL 10/08/17 18:00 11/05/17 08:59 10/12/17 16:47 Meclizine HCl (Antivert) 12.5 mg Q6H PRN ORAL for dizziness 10/10/17 12:00 11/09/17 11:59 10/10/17 12:25 Metoclopramide HCl (Reglan) 5 mg AC+HS ORAL 10/07/17 16:30 11/05/17 13:29 10/12/17 16:46 Metoprolol Tartrate (Lopressor) 50 mg EVERY 12 HOURS ORAL 10/07/17 21:00 11/05/17 08:59 10/12/17 08:51 Nifedipine (Procardia XL) 90 mg DAILY ORAL 10/08/17 09:00 11/05/17 08:59 10/12/17 08:50 Ondansetron HCl (Zofran) 4 mg Q6H PRN IVP Nausea & Vomiting 10/07/17 14:35 11/05/17 14:34 10/11/17 19:58 Polyethylene Glycol (Miralax) 17 gm BEDTIME ORAL 10/09/17 21:00 11/08/17 20:59 Polyethylene Glycol (Miralax) 17 gm HSPRN PRN ORAL Constipation 10/07/17 14:35 11/04/17 14:34 Sevelamer Carbonate (Renvela) 800 mg THREE TIMES A DAY ORAL 10/07/17 18:00 11/06/17 12:59 10/12/17 16:45 Tramadol HCl (Ultram) 50 mg Q6H PRN ORAL Severe Pain (Pain Scale 7-10) 10/07/17 14:35 10/14/17 14:34 10/11/17 10:13 LEXI THOMAS Oct 12, 2017 17:35
--- NOTE | 2017-10-12 19:44 | General Progress Note ---
Assessment/Plan Assessment/Plan Assessment N/V combined with a sensation of vertigo - improved no acute intracrainial pathology on MRI Recommendations push po follow symptoms Outpatient EGD/colon - patient accepts responsibility for arranging GI f/u Subjective Allergies: Coded Allergies: No Known Allergies (Unverified , 05/12/17) Subjective seen this am had an episode of N/V with HD yesterday offered inpatient EGD - declined wants to go home and do it as outpatient Objective Last 24 Hour Vital Signs Date Time Temp Pulse Resp B/P (MAP) Pulse Ox O2 Delivery O2 Flow Rate FiO2 10/12/17 17:46 97.7 10/12/17 16:47 115/65 10/12/17 16:00 97.7 64 18 115/51 98 Room Air 97.7 10/12/17 12:00 97.2 66 18 114/46 96 Room Air 97.2 10/12/17 08:52 98.0 10/12/17 08:51 78 155/59 10/12/17 08:50 155/59 10/12/17 08:50 78 155/59 10/12/17 08:24 75 20 Room Air 21 10/12/17 08:00 97.9 18 155/59 96 Room Air 97.9 10/12/17 04:00 98.0 72 20 127/65 100 Room Air 98.0 10/12/17 00:00 97.7 75 20 119/68 98 97.7 10/11/17 21:04 77 20 Room Air 21 10/11/17 20:00 98.6 77 20 101/62 95 98.6 Intake and Output 10/11/17 10/12/17 19:00 07:00 Intake Total 400 ml Output Total 2174 ml Balance -2174 ml 400 ml Intake Oral 400 ml Hemodialysis UF 2174 ml # Voids 1 Height (Feet): 5 Height (Inches): 0.00 Weight (Pounds): 160 Objective WDWN NCAT supple CTA RRR abd soft ND no edema non focal LUE sling JANELL SERNA Oct 12, 2017 19:44
--- NOTE | 2017-10-12 19:51 | General Progress Note ---
Assessment/Plan Problem List: (1) Hyperkalemia ICD Codes: E87.5 - Hyperkalemia SNOMED: 34901340, 359935263 (2) Unsteady gait ICD Codes: R26.81 - Unsteadiness on feet SNOMED: 16842566, 214024593 (3) ESRD (end stage renal disease) ICD Codes: N18.6 - End stage renal disease SNOMED: 92860256 (4) Diabetic nephropathy with proteinuria ICD Codes: E11.21 - Type 2 diabetes mellitus with diabetic nephropathy SNOMED: 28500009, 867460767 (5) Dizziness ICD Codes: R42 - Dizziness and giddiness SNOMED: 795990504, 404132735 (6) Hypertensive kidney disease ICD Codes: I12.9 - Hypertensive chronic kidney disease with stage 1 through stage 4 chronic kidney disease, or unspecified chronic kidney disease SNOMED: 72077233 Status: progressing Assessment/Plan afebrile esrd on hd dc in am lytes improved reviewed chart and labs Subjective ROS Limited/Unobtainable: Yes Allergies: Coded Allergies: No Known Allergies (Unverified , 05/12/17) Objective Last 24 Hour Vital Signs Date Time Temp Pulse Resp B/P (MAP) Pulse Ox O2 Delivery O2 Flow Rate FiO2 10/12/17 17:46 97.7 10/12/17 16:47 115/65 10/12/17 16:00 97.7 64 18 115/51 98 Room Air 97.7 10/12/17 12:00 97.2 66 18 114/46 96 Room Air 97.2 10/12/17 08:52 98.0 10/12/17 08:51 78 155/59 10/12/17 08:50 155/59 10/12/17 08:50 78 155/59 10/12/17 08:24 75 20 Room Air 21 10/12/17 08:00 97.9 18 155/59 96 Room Air 97.9 10/12/17 04:00 98.0 72 20 127/65 100 Room Air 98.0 10/12/17 00:00 97.7 75 20 119/68 98 97.7 10/11/17 21:04 77 20 Room Air 21 10/11/17 20:00 98.6 77 20 101/62 95 98.6 Intake and Output 10/11/17 10/12/17 19:00 07:00 Intake Total 400 ml Output Total 2174 ml Balance -2174 ml 400 ml Intake Oral 400 ml Hemodialysis UF 2174 ml # Voids 1 Height (Feet): 5 Height (Inches): 0.00 Weight (Pounds): 160 Neck: supple Cardiovascular: normal rate Respiratory/Chest: lungs clear Abdomen: soft Makenna Daniel MD Oct 12, 2017 19:51
[2017-10-12 20:00] VITALS: BP 158/71
[2017-10-12] MEDS: Miralax 17gm pkt ORAL SCH (22:26)
[2017-10-13] VITALS: BP 122/51
[2017-10-13 04:00] VITALS: BP 137/60
[2017-10-13] MEDS: NovoLOG Insulin Flexpen SUBQ SCH ×2 (06:13→12:19)
--- NOTE | 2017-10-13 06:24 | General Progress Note ---
Progress Note Progress Note REHAB FOLLOW UP PROGRESS NOTE: SUBJECTIVE: AWAKE AND ALERT. SLEPT WELL LEFT SHOULDER PAIN >>^ WITH ABDUCTION AND FLEXION + BM, NO HEADACHE / DIZZINESS PER PT >> * Rolling * Stand By Assistance Supine to Sit * Stand By Assistance Bed Mobility Assistive Devices * Bed Rail Bed Mobility Comments * NO c/o dizziness: able to complete bed mobility tasks independently Sit to Stand * Supervision Bed to Chair/Wheelchair * Supervision Transfer assistive devices * Front wheel walker Gait Distance * 200 ft Assistance * Stand By Assistance Assistive Device * Front Wheel Walker REVIEW OF SYSTEMS: EYES: History of left eye surgery. Denies diplopia. ENT: Denies dysphagia. CARDIOVASCULAR: No chest pain. PULMONARY: No shortness of breath. GASTROINTESTINAL: No abdominal pain. GENITOURINARY: End-stage renal disease on hemodialysis. MUSCULOSKELETAL: Left shoulder pain.NEUROLOGIC: NO KNIGHT NOW, NO DIZZINESS NOW. PHYSICAL EXAMINATION: VITAL SIGNS: NOTED PER CHART, HEENT: No facial droop. NECK: Supple HEART: Regular rhythm and rate. LUNGS: Clear to auscultation bilaterally. ABDOMEN: Soft, nontender, and nondistended. Normal bowel sounds with no palpable or abnormal mass. EXTREMITIES: No pitting edema. No calf tenderness. No clubbing or cyanosis. NEUROLOGIC: The patient is alert, awake, and oriented. Movement of right upper and bilateral lower limb antigravity of the left limb, movement of left shoulder is strictly limited with pain LABORATORY AND DIAGNOSTIC DATA: NOTED PER CHART. left shoulder mri >> IMPRESSION: Full thickness tear of the supraspinatus tendon with a 2 cm proximal retraction of the musculotendinous junction. Diffuse, moderate rotator cuff tendinopathy with enlargement and intermediate heterogeneous signal involving all portions of the rotator cuff. Scattered likely associated heterogeneous signal within portions of the rotator cuff muscles as described above. 1 cm septated superior para labral cyst adjacent to the supraspinatus tendon. Moderate degeneration of the glenoid labrum. Arthropathy of the AC joint ASSESSMENT: The patient is a 67-year-old female with; 1. Status post fall having dizziness. PER NEURO >>> blunt head trauma with mild cerebral concussion presenting with persistent headaches. + BENIGN POSITIONAL VERTIGO. 2. Head trauma. 3. Evidence of questionable hydrocephalus with CT scan of the head >> NO REPORT IN MRI . 4. Gait abnormality. 5. Debility and functional decline. 6. Limb pain. 7. Left shoulder contusion versus ligament tear. 8. End-stage renal disease on hemodialysis. 9. Hypertension. 10. Clinical peripheral polyneuropathy and neuropathic pain. 11. Hypothyroidism. 12. Debility and functional decline and gait abnormality. LEFT SHOULDER RCT + RECTAL ALPA RECOMMENDATION: 24-hour nursing care. Physical therapy, full range of motion, transfer training, endurance, balance and gait training, fall prevention with appropriate assisted device. Occupational therapy for activities of daily living equipment, function and transfer training of upper extremity range of motion and strengthening exercise. Nursing for her bowel and bladder, medication regimen, skin care prevention and pressure ulcer, the patient and family education. lidocaine patch and lidocaine cream to be applied to left shoulder for pain control. ON ULTRAM neurologist >> F/U >> ON ANTIVERT Continue medical management per Medicine. CORBY YODER. CHART REVIEWED. SEE ORDERS. VRE CONTACT ISOLATION. PT >> SHOULDER EXERCISE PROGRAM left shoulder >> ORTHO FOR F/U AND CARE KURT KAYE M.D. Oct 13, 2017 06:24
[2017-10-13 08:00] VITALS: BP 156/68
[2017-10-13] MEDS: Heparin 5000 units/ml inj SUBQ SCH (08:34)
[2017-10-13] MEDS: Docusate 100mg cap ORAL SCH (08:35)
[2017-10-13 08:37] LABS: BASOPHILS % (AUTO) 1.9 % (0.0-2.0); EOSINOPHILS % (AUTO) 4.9 % (0.0-3.0); HEMATOCRIT 26.6 % (37.0-47.0); HEMOGLOBIN 9.6 G/DL (12.0-16.0); LYMPHOCYTES % (AUTO) 26.2 % (20.0-45.0); MEAN CORPUSCULAR VOLUME 94 FL (80-99); MONOCYTES % (AUTO) 8.3 % (1.0-10.0); NEUTROPHILS % (AUTO) 58.7 % (45.0-75.0); PLATELET COUNT 218 K/UL (150-450); RED BLOOD COUNT 2.83 M/UL (4.20-5.40); RED CELL DISTRIBUTION WIDTH 10.9 % (11.6-14.8); WHITE BLOOD COUNT 5.2 K/UL (4.8-10.8)
[2017-10-13 08:55] LABS: ALANINE AMINOTRANSFERASE 9 U/L (12-78); ALBUMIN 3.2 G/DL (3.4-5.0); ALBUMIN/GLOBULIN RATIO 0.9 (1.0-2.7); ALKALINE PHOSPHATASE 143 U/L (46-116); ANION GAP 7 mmol/L (5-15); ASPARTATE AMINO TRANSFERASE 11 U/L (15-37); BILIRUBIN,TOTAL 0.6 MG/DL (0.2-1.0); BLOOD UREA NITROGEN 73 mg/dL (7-18); CALCIUM 8.5 MG/DL (8.5-10.1); CARBON DIOXIDE 31 MMOL/L (21-32); CHLORIDE 93 MMOL/L (98-107); CREATININE 6.2 MG/DL (0.55-1.30); PHOSPHORUS 4.4 MG/DL (2.5-4.9); POTASSIUM 4.2 MMOL/L (3.5-5.1); SODIUM 131 MMOL/L (136-145)
[2017-10-13] MEDS: Lisinopril 20mg tab ORAL SCH (09:00)
--- NOTE | 2017-10-13 11:32 | General Progress Note ---
Assessment/Plan Assessment/Plan 1. Anemia due to underlying chronic disease. --> Blood transfusion no required as anemia mild at this time. --> Continue to closely monitor and trend cbc daily. --> Unless hemoglobin less than 9, she does not require anemia workup. --> Anemia has been mild and hgb >11. Hgb stable. 2. Hyperkalemia. --> The patient given Kayexalate management per Nephrology Service. 3. End-stage renal disease, on hemodialysis three times a week. 4. History of coronary artery disease. 5. History of anemia, low B12, low iron. --> Iron levels 82 6. Dizziness and unsteady gait. --> Vertigo improved. 7. Leukopenia. --> WBC count has been downtrending. --> Monitor. Subjective Date patient seen: Oct 12, 2017 Constitutional: Denies: no symptoms, chills, diaphoresis, fever, malaise, weakness, other HEENT: Denies: no symptoms, eye pain, blurred vision, tearing, double vision, ear pain, ear discharge, nose pain, nose congestion, throat pain, throat swelling, mouth pain, mouth swelling, other Cardiovascular: Denies: no symptoms, chest pain, edema, irregular heart rate, lightheadedness, palpitations, syncope, other Respiratory: Denies: no symptoms, cough, orthopnea, shortness of breath, SOB with excertion, SOB at rest, sputum, stridor, wheezing, other Gastrointestinal/Abdominal: Denies: no symptoms, abdomen distended, abdominal pain, black stools, tarry stools, blood in stool, constipated, diarrhea, difficulty swallowing, nausea, poor appetite, poor fluid intake, rectal bleeding , vomiting, other Genitourinary: Denies: no symptoms, burning, discharge, frequency, flank pain, hematuria, incontinence, pain, urgency, other Neurologic/Psychiatric: Denies: no symptoms, anxiety, depressed, emotional problems, headache, numbness, paresthesia, pre-existing deficit, seizure, tingling, tremors, weakness, other Hematologic/Lymphatic: Reports: anemia Allergies: Coded Allergies: No Known Allergies (Unverified , 05/12/17) Subjective No more vomiting. H/H stable. No fever or chills. Objective Last 24 Hour Vital Signs Date Time Temp Pulse Resp B/P (MAP) Pulse Ox O2 Delivery O2 Flow Rate FiO2 10/13/17 08:10 62 20 Room Air 21 10/13/17 08:00 98.4 74 18 156/68 98 98.4 10/13/17 04:00 97.9 79 18 137/60 99 97.9 10/13/17 00:00 98.1 69 16 122/51 95 98.1 10/12/17 22:20 78 115/65 10/12/17 20:00 97.9 75 18 158/71 98 97.9 10/12/17 18:52 78 20 Room Air 21 10/12/17 17:46 97.7 10/12/17 16:47 115/65 10/12/17 16:00 97.7 64 18 115/51 98 Room Air 97.7 10/12/17 12:00 97.2 66 18 114/46 96 Room Air 97.2 Intake and Output 10/12/17 10/13/17 19:00 07:00 Intake Total 480 ml 200 ml Balance 480 ml 200 ml Intake Oral 480 ml 200 ml Laboratory Tests 10/13/17 08:00: White Blood Count 5.2, Red Blood Count 2.83L, Hemoglobin 9.6L, Hematocrit 26.6L , Mean Corpuscular Volume 94, Mean Corpuscular Hemoglobin 34.1H, Mean Corpuscular Hemoglobin Concent 36.2H, Red Cell Distribution Width 10.9L, Platelet Count 218, Mean Platelet Volume 7.2, Neutrophils (%) (Auto) 58.7, Lymphocytes (%) (Auto) 26.2, Monocytes (%) (Auto) 8.3, Eosinophils (%) (Auto) 4.9H, Basophils (%) (Auto) 1.9, Sodium Level 131L, Potassium Level 4.2, Chloride Level 93L, Carbon Dioxide Level 31, Anion Gap 7, Blood Urea Nitrogen 73H, Creatinine 6.2H, Estimat Glomerular Filtration Rate 6.7, Glucose Level 256H , Calcium Level 8.5, Phosphorus Level 4.4, Magnesium Level 2.1, Total Bilirubin 0.6, Aspartate Amino Transf (AST/SGOT) 11L, Alanine Aminotransferase (ALT/SGPT) 9L, Alkaline Phosphatase 143H, Total Protein 6.9, Albumin 3.2L, Globulin 3.7, Albumin/Globulin Ratio 0.9L Height (Feet): 5 Height (Inches): 0.00 Weight (Pounds): 160 General Appearance: no apparent distress Respiratory/Chest: lungs clear, normal breath sounds Abdomen: non tender, soft Carl Daniels Oct 13, 2017 11:32
[2017-10-13 12:00] VITALS: BP 145/65
[2017-10-13 13:04] VITALS: BP 145/65
[2017-10-13] MEDS: Metoprolol Tartrate 50mg tab ORAL SCH (13:04)
--- NOTE | 2017-10-13 14:52 | Nephrology Progress Note ---
Assessment/Plan Problem List: (1) Hyperkalemia (2) ESRD (end stage renal disease) (3) Dizziness (4) Hypertensive kidney disease Assessment (1) ESRD (end stage renal disease) on dialysis has high K (2) h/o CAD (3) Hypertensive kidney disease (4) Diabetic nephropathy with proteinuria (5) h/o Anemia , low B12 and low Iron (6) Humeral head trauma (7) Dizziness and unsteady gait Plan Renal diet- HTN, OOC , meds adjusted Reglan PO HD 10/09 next 10/14 can be done as OP Per orders pain management PT OT Subjective ROS Limited/Unobtainable: No Constitutional: Reports: malaise Subjective no more vomiting Objective Objective Last 24 Hour Vital Signs Date Time Temp Pulse Resp B/P (MAP) Pulse Ox O2 Delivery O2 Flow Rate FiO2 10/13/17 13:04 71 145/65 10/13/17 13:03 71 145/65 10/13/17 12:00 98.1 71 18 145/65 96 98.1 10/13/17 09:00 145/65 10/13/17 08:10 62 20 Room Air 21 10/13/17 08:00 98.4 74 18 156/68 98 98.4 10/13/17 04:00 97.9 79 18 137/60 99 97.9 10/13/17 00:00 98.1 69 16 122/51 95 98.1 10/12/17 22:20 78 115/65 10/12/17 20:00 97.9 75 18 158/71 98 97.9 10/12/17 18:52 78 20 Room Air 21 10/12/17 17:46 97.7 10/12/17 16:47 115/65 10/12/17 16:00 97.7 64 18 115/51 98 Room Air 97.7 Intake and Output 10/12/17 10/13/17 19:00 07:00 Intake Total 480 ml 200 ml Balance 480 ml 200 ml Intake Oral 480 ml 200 ml Laboratory Tests 10/13/17 08:00: White Blood Count 5.2, Red Blood Count 2.83L, Hemoglobin 9.6L, Hematocrit 26.6L , Mean Corpuscular Volume 94, Mean Corpuscular Hemoglobin 34.1H, Mean Corpuscular Hemoglobin Concent 36.2H, Red Cell Distribution Width 10.9L, Platelet Count 218, Mean Platelet Volume 7.2, Neutrophils (%) (Auto) 58.7, Lymphocytes (%) (Auto) 26.2, Monocytes (%) (Auto) 8.3, Eosinophils (%) (Auto) 4.9H, Basophils (%) (Auto) 1.9, Sodium Level 131L, Potassium Level 4.2, Chloride Level 93L, Carbon Dioxide Level 31, Anion Gap 7, Blood Urea Nitrogen 73H, Creatinine 6.2H, Estimat Glomerular Filtration Rate 6.7, Glucose Level 256H , Calcium Level 8.5, Phosphorus Level 4.4, Magnesium Level 2.1, Total Bilirubin 0.6, Aspartate Amino Transf (AST/SGOT) 11L, Alanine Aminotransferase (ALT/SGPT) 9L, Alkaline Phosphatase 143H, Total Protein 6.9, Albumin 3.2L, Globulin 3.7, Albumin/Globulin Ratio 0.9L Height (Feet): 5 Height (Inches): 0.00 Weight (Pounds): 160 General Appearance: no apparent distress Objective no change VOLODYMYR DOUGLAS Oct 13, 2017 14:52
--- NOTE | 2017-10-13 21:52 | General Progress Note ---
Assessment/Plan Assessment/Plan Assessment N/V combined with a sensation of vertigo - improved no acute intracrainial pathology on MRI Recommendations push po follow symptoms Outpatient EGD/colon - patient accepts responsibility for arranging GI f/u Subjective Allergies: Coded Allergies: No Known Allergies (Unverified , 05/12/17) Subjective seen this am no further vomiting for d/c will f/u in office Objective Last 24 Hour Vital Signs Date Time Temp Pulse Resp B/P (MAP) Pulse Ox O2 Delivery O2 Flow Rate FiO2 10/13/17 13:04 71 145/65 10/13/17 13:03 71 145/65 10/13/17 12:00 98.1 71 18 145/65 96 98.1 10/13/17 09:00 145/65 10/13/17 08:10 62 20 Room Air 21 10/13/17 08:00 98.4 74 18 156/68 98 98.4 10/13/17 04:00 97.9 79 18 137/60 99 97.9 10/13/17 00:00 98.1 69 16 122/51 95 98.1 10/12/17 22:20 78 115/65 Intake and Output 10/12/17 10/13/17 19:00 07:00 Intake Total 480 ml 200 ml Balance 480 ml 200 ml Intake Oral 480 ml 200 ml Laboratory Tests 10/13/17 08:00: White Blood Count 5.2, Red Blood Count 2.83L, Hemoglobin 9.6L, Hematocrit 26.6L , Mean Corpuscular Volume 94, Mean Corpuscular Hemoglobin 34.1H, Mean Corpuscular Hemoglobin Concent 36.2H, Red Cell Distribution Width 10.9L, Platelet Count 218, Mean Platelet Volume 7.2, Neutrophils (%) (Auto) 58.7, Lymphocytes (%) (Auto) 26.2, Monocytes (%) (Auto) 8.3, Eosinophils (%) (Auto) 4.9H, Basophils (%) (Auto) 1.9, Sodium Level 131L, Potassium Level 4.2, Chloride Level 93L, Carbon Dioxide Level 31, Anion Gap 7, Blood Urea Nitrogen 73H, Creatinine 6.2H, Estimat Glomerular Filtration Rate 6.7, Glucose Level 256H , Calcium Level 8.5, Phosphorus Level 4.4, Magnesium Level 2.1, Total Bilirubin 0.6, Aspartate Amino Transf (AST/SGOT) 11L, Alanine Aminotransferase (ALT/SGPT) 9L, Alkaline Phosphatase 143H, Total Protein 6.9, Albumin 3.2L, Globulin 3.7, Albumin/Globulin Ratio 0.9L Height (Feet): 5 Height (Inches): 0.00 Weight (Pounds): 160 Objective WDWN NCAT supple CTA RRR abd soft ND no edema non focal LUE sling JANELL SERNA Oct 13, 2017 21:52
--- NOTE | 2017-10-14 09:32 | General Progress Note ---
Assessment/Plan Assessment/Plan 1. Anemia due to underlying chronic disease. --> Blood transfusion no required as anemia mild at this time. --> Continue to closely monitor and trend cbc daily. --> Unless hemoglobin less than 9, she does not require anemia workup. --> Anemia has been mild and hgb >11. Hgb stable. 2. Hyperkalemia. --> The patient given Kayexalate management per Nephrology Service. 3. End-stage renal disease, on hemodialysis three times a week. 4. History of coronary artery disease. 5. History of anemia, low B12, low iron. --> Iron levels 82 6. Dizziness and unsteady gait. --> Vertigo improved. 7. Leukopenia. --> WBC count improved --> Monitor. Subjective Date patient seen: Oct 13, 2017 Constitutional: Denies: no symptoms, chills, diaphoresis, fever, malaise, weakness, other HEENT: Denies: no symptoms, eye pain, blurred vision, tearing, double vision, ear pain, ear discharge, nose pain, nose congestion, throat pain, throat swelling, mouth pain, mouth swelling, other Cardiovascular: Denies: no symptoms, chest pain, edema, irregular heart rate, lightheadedness, palpitations, syncope, other Respiratory: Denies: no symptoms, cough, orthopnea, shortness of breath, SOB with excertion, SOB at rest, sputum, stridor, wheezing, other Gastrointestinal/Abdominal: Denies: no symptoms, abdomen distended, abdominal pain, black stools, tarry stools, blood in stool, constipated, diarrhea, difficulty swallowing, nausea, poor appetite, poor fluid intake, rectal bleeding , vomiting, other Genitourinary: Denies: no symptoms, burning, discharge, frequency, flank pain, hematuria, incontinence, pain, urgency, other Neurologic/Psychiatric: Denies: no symptoms, anxiety, depressed, emotional problems, headache, numbness, paresthesia, pre-existing deficit, seizure, tingling, tremors, weakness, other Allergies: Coded Allergies: No Known Allergies (Unverified , 05/12/17) Subjective Stable. No acute distress. Pending discharge Objective Last 24 Hour Vital Signs Date Time Temp Pulse Resp B/P (MAP) Pulse Ox O2 Delivery O2 Flow Rate FiO2 3/13/18 13:04 71 145/65 10/13/17 13:03 71 145/65 10/13/17 12:00 98.1 71 18 145/65 96 98.1 Intake and Output 10/13/17 10/14/17 19:00 07:00 # Voids 2 Height (Feet): 5 Height (Inches): 0.00 Weight (Pounds): 160 General Appearance: no apparent distress Respiratory/Chest: lungs clear Abdomen: soft Carl Daniels Oct 14, 2017 09:32
--- NOTE | 2017-10-16 11:57 | Discharge Summary ---
Discharge Summary Hospital Course Date of Admission Oct 05, 2017 at 15:55 Date of Discharge Oct 13, 2017 at 14:00 Admitting Diagnosis DIZZINESS/ESRD HPI Carolina Vasquez is a 67 year old female who was admitted on Oct 05, 2017 at 15:55 for Dizziness/End Stage Renal Disease Hospital Course [id number] Discharge Discharge Disposition Patient was discharged to Home with Home Health(06) Discharge Diagnoses: Alissa Montez NP Oct 16, 2017 11:57
--- NOTE | 2017-10-17 00:45 | Discharge Summary 2 SIG ---
DATE OF ADMISSION: 10/05/2017 DATE OF DISCHARGE: 10/13/2017 CONSULTANTS: 1. Carl Daniels M.D. 2. Ramakrishna Leonard M.D. 3. Francis Falk M.D. 4. Adonay Fenton M.D. 5. Mamie Alba M.D. 6. George Bailey M.D. 7. Brandon Scherer M.D. ([facility] [place]). BRIEF HOSPITAL COURSE: The patient is a 67-year-old female, who presented to ED complaining of nausea. She has a history of end-stage renal disease, on hemodialysis Thursday, Thursday, and Thursday. Last dialysis was on the day of admission where she only finished three hours of hemodialysis. She began to experience dizziness and nausea, which started apparently the day before the admission. Symptoms were worse when she ambulates. She fell and hit her head. However, there was no report of loss of consciousness. She was also complaining of pain on the left shoulder that is worse with movement. She continued to have nausea and vomiting. However, there was no abdominal pain. No diarrhea. No fever. No chills. No chest pain or shortness of breath. She also has history of diabetes mellitus, hypertension, asthma, and TIA. On evaluation at ED, blood work did not show any leukocytosis. EKG was in normal sinus rhythm with no acute changes. She was given Zofran and IV hydration. CT of the head was negative for acute intracranial bleed or mass effect. Shoulder x-ray showed no acute process, no acute fracture, and no dislocations. She was admitted for evaluation of nausea and vomiting. Dr. Scherer was consulted. X-ray of the left shoulder was reviewed. Left shoulder showed cystic formation, but no acute evidence of a fracture. Dr. Falk was consulted for inpatient hemodialysis. The patient had elevated blood pressure and was given lisinopril 20 mg b.i.d., Procardia 90 mg daily, and metoprolol [address] Leonard was consulted. Nausea and vomiting was combined with sensation of vertigo and noted nausea with dizziness during ambulation. Dr. Bailey was consulted. The patient has recurrent vertigo episodes resembling chronic labyrinthitis and had persistent headaches with muscle contraction type. The patient had postconcussion cephalgia, which is expected to gradually resolve. She was given Neurontin 300 mg b.i.d. She had an echocardiogram done that showed left ejection fraction of 60% to 65% with normal left ventricular size, function, and wall motion. There was a bicuspid aortic valve. She was also given meclizine 12.5 mg b.i.d. p.r.n. She had a shoulder MRI that showed a full-thickness tear of the supraspinatus tendon with a 2 cm proximal retraction of the musculotendinous junction. The patient has diffuse moderate rotator cuff tendinopathy. She was continued on physical therapy and occupational therapy. Her anemia was assessed to be due to underlying chronic disease. Hemoglobin and hematocrit levels were stable. Stool OB was negative. She subsequently underwent MRI of the brain. There were no acute intracranial findings with moderate atrophy and evidence of chronic small vessel disease. She was eventually discharged home with home health. FINAL DIAGNOSES: 1. Recurrent benign positional vertigo. 2. Unsteady gait, status post fall prior to admission. 3. End-stage renal disease, on hemodialysis. 4. Anemia of chronic disease. 5. Hyperkalemia. 6. Leukopenia. 7. Left shoulder pain secondary to acute full thickness tear of the supraspinatus tendon. 8. Hypertension, out of control. 9. Peripheral polyneuropathy. 10. Hypothyroidism. 11. Debility and functional decline with gait abnormality. 12. Hypertensive kidney disease. 13. Diabetes with diabetic nephropathy with proteinuria. DISPOSITION: The patient was discharged home with senior home health. DISCHARGE MEDICATIONS: Refer to medication list. DISCHARGE INSTRUCTIONS: Follow up with PMD and GI as an outpatient. The patient would need to continue home PT and OT. FOLLOWUP: Follow up with Orthopedic. Makenna Daniel M.D. I have been assigned to dictate discharge summary on this account and I was not involved in the patient's management. Alissa Montez N.P. DR: Natacha JOB#: [id number] CC: EDGAR
== END 2017-10-13 14:00 | disposition home health service (06) | DRG 682 ==
LOC: EMR 13:35 → 2E 15:55 → EDBEDREQ 17:44 → 2E 20:55 → 4E 10-07 14:26
DX: I12.0 Hypertensive chronic kidney disease with stage 5 chronic kidney disease or end stage renal disease (principal); N18.6 End stage renal disease; E11.21 Type 2 diabetes mellitus with diabetic nephropathy; E11.42 Type 2 diabetes mellitus with diabetic polyneuropathy; D63.8 Anemia in other chronic diseases classified elsewhere; S46.812A Strain of other muscles, fascia and tendons at shoulder and upper arm level, left arm, initial encounter; E87.5 Hyperkalemia; Z99.2 Dependence on renal dialysis; R26.81 Unsteadiness on feet; M81.0 Age-related osteoporosis without current pathological fracture; I25.10 Atherosclerotic heart disease of native coronary artery without angina pectoris; E03.9 Hypothyroidism, unspecified; E78.5 Hyperlipidemia, unspecified; H93.13 Tinnitus, bilateral; H81.10 Benign paroxysmal vertigo, unspecified ear; S09.90XA Unspecified injury of head, initial encounter; Z91.81 History of falling; Z79.4 Long term (current) use of insulin; W18.2XXA Fall in (into) shower or empty bathtub, initial encounter; Y93.E1 Activity, personal bathing and showering; Y92.012 Bathroom of single-family (private) house as the place of occurrence of the external cause
CPT/HCPCS: 29240; 36415; 70450; 70551; 71045; 74018; 80053; 80061; 81001; 82270; 82607; 82728; 82746; 82962; 82977; 83036; 83540; 83550; 83735; 83880; 84100; 84443; 84484; 84550; 85025; 85610; 85730; 86140; 87040; 87081; 93005; 93306; 94664; 99285; J1815; J2405

== ENCOUNTER 2018-08-04 12:18 | Emergency (ER) | payer MEDICARE, MEDICAID ==
[~2018-08-04] VITALS: Ht 157.5 cm; Wt 72.6 kg
[~2018-08-04 12:18] MED LIST changes: +ADALAT20 MG ORAL; +FERROUS SULFAT325 M2 ORAL; +FUROSEMIDE20 M1 ORAL; +LEVOTHYROXINE137 MCG ORAL; +OYSTER SHELL 51 EAC1 PO; +UNOBMED
--- NOTE | 2018-08-04 12:32 | NUR ---
ED Nurse Note: PT WALKED IN TO ER TODAY FROM HOME. AOX4. PT C/O TINGLING SENSATION ON LEFT ARM AND LEGS X 2 WEEKS. SENSATION AND CIRCULATION INTACT, FULL ROM OF EXTREMITIES, CAP REFILL <3 SECOND, AND 5/5 MUSCLE STRENGTH. OF NOTE, PT HAS A AV FISUTLA FOR DIALYSIS ON LEFT UPPER ARM. DIALYSIS ON MWF.
[2018-08-04 12:33] VITALS: BP 137/97
--- NOTE | 2018-08-04 13:23 | Diagnostic Imaging Report ---
Indication: Headache Technique: Contiguous 5 mm thick transaxial imaging of the head obtained in a Siemens Sensation [address] scanner. Soft tissue and bone windows generated. Automatic Exposure Control was utilized. Total Dose length Product (DLP): 1379.[address] Dose Index Volume (CTDIvol): 70.38 mGy Comparison: 10/05/2017 Findings: The size and configuration of the cortical sulci, basal cisterns, and ventricles are within normal limits for age. There is no mass effect, midline shift, or edema identified. There is no evidence of acute hemorrhage or abnormal intra-axial or extra-axial fluid collections. The bones and soft tissues are unremarkable. Impression: No mass effect, edema or acute bleed. The CT scanner at [facility] is accredited by the [employer] and the scans are performed using dose optimization techniques as appropriate to a performed exam including Automatic Exposure control.
--- NOTE | 2018-08-04 13:57 | Diagnostic Imaging Report ---
Indication: Dyspnea Comparison: 10/05/2017 A single view chest radiograph was obtained. Findings: No definite infiltrate or pulmonary vascular congestion identified. The heart is enlarged. The aorta is mildly enlarged consistent with atherosclerotic vascular disease. The bones are osteopenic. Impression: No acute disease
--- NOTE | 2018-08-04 13:58 | NUR ---
ED Nurse Note: blood sent down to the lab
[2018-08-04 14:07] LABS: BASOPHILS % (AUTO) 1.8 % (0.0-2.0); EOSINOPHILS % (AUTO) 5.3 % (0.0-3.0); HEMATOCRIT 34.4 % (37.0-47.0); HEMOGLOBIN 11.5 G/DL (12.0-16.0); LYMPHOCYTES % (AUTO) 16.2 % (20.0-45.0); MEAN CORPUSCULAR VOLUME 95 FL (80-99); MONOCYTES % (AUTO) 7.7 % (1.0-10.0); PLATELET COUNT 194 K/UL (150-450); RED BLOOD COUNT 3.62 M/UL (4.20-5.40); RED CELL DISTRIBUTION WIDTH 13.3 % (11.6-14.8); WHITE BLOOD COUNT 4.6 K/UL (4.8-10.8)
[2018-08-04 14:46] LABS: ALANINE AMINOTRANSFERASE 12 U/L (12-78); ALBUMIN 3.6 G/DL (3.4-5.0); ALBUMIN/GLOBULIN RATIO 0.8 (1.0-2.7); ALKALINE PHOSPHATASE 218 U/L (46-116); ANION GAP 7 mmol/L (5-15); ASPARTATE AMINO TRANSFERASE 30 U/L (15-37); BILIRUBIN,TOTAL 0.9 MG/DL (0.2-1.0); BLOOD UREA NITROGEN 25 mg/dL (7-18); CALCIUM 8.1 MG/DL (8.5-10.1); CARBON DIOXIDE 36 MMOL/L (21-32); CHLORIDE 93 MMOL/L (98-107); CKMB 2.2 NG/ML (0.0-3.6); CREATINE KINASE 327 U/L (26-308); CREATININE 3.1 MG/DL (0.55-1.30); POTASSIUM 4.2 MMOL/L (3.5-5.1); SODIUM 136 MMOL/L (136-145)
--- NOTE | 2018-08-04 15:22 | Emergency Room Report ---
History of Present Illness General Chief Complaint: Dizziness Source: Patient Present Illness HPI 68-year-old female presents ED for evaluation. Patient complaining of dizziness. States that she went to dialysis today and started to feel dizzy. Completed her dialysis session. Complaining of pain on the left side. To her left arm and left leg. Pain is sharp, 5 out of 10, nonradiating. Denies chest pain or shortness of breath. Denies fevers chills. Denies cough. No other aggravating relieving factors. Denies any other associated symptoms Allergies: Coded Allergies: No Known Allergies (Unverified , 05/12/17) Patient History Past Medical History: DM, HTN, CVA/TIA, renal disease, dialysis Pertinent Family History: none Social History: Denies: smoking, alcohol use, drug use Now: No Immunizations: UTD Reviewed Nursing Documentation: PMH: Agreed; PSxH: Agreed Nursing Documentation-PMH Hx Cardiac Problems: Yes Hx Hypertension: Yes Hx Pacemaker: No Hx Asthma: Yes Hx COPD: No Hx Diabetes: Yes - TYPE 2 DIABETES MELLITUS Hx Cancer: No Hx Gastrointestinal Problems: No Hx Dialysis: No Hx Neurological Problems: No Hx Transient Ischemic Attacks: Yes - ACUTE ISCHEMIC HEART DISEASE Hx Dementia: No Hx Alzheimer's Disease: No Hx Parkinson's Disease: No Hx Meningitis: No Hx Encephalitis: No Hx Seizures: No Hx Epilepsy: No Hx Multiple Sclerosis: No Hx Cerebral Palsy: No Hx Amyotrophic Lat Sclerosis: No Hx Guillian-Mcgraws Syndrome: No Hx Paralysis: No Hx Peripheral Neuropathy: No Hx Spinal Cord Injury: No Hx Head Trauma: No Hx Traumatic Brain Injury: No Hx Memory Loss: No Hx Concentration Difficulty: No Hx Speech Problem: No Hx Tremors: No Hx Vertigo: No Hx Dizziness: No Hx Syncope: No Hx Headaches: No Hx Aphasia: No Hx Dysphasia: No Hx Numbness: No Hx Weakness: Yes - MUSCLE WEAKNESS Hx Fatigue: No Hx Neurologic Surgery: No Hx Brain Shunt: No Review of Systems All Other Systems: negative except mentioned in HPI Physical Exam Vital Signs Date Time Temp Pulse Resp B/P (MAP) Pulse Ox O2 Delivery O2 Flow Rate FiO2 08/04/18 12:27 97.9 86 16 140/78 99 Room Air Sp02 EP Interpretation: reviewed, normal General Appearance: no apparent distress, alert, GCS 15, non-toxic Head: normocephalic, atraumatic Eyes: bilateral eye normal inspection, bilateral eye PERRL ENT: hearing grossly normal, normal pharynx, no angioedema, normal voice Neck: full range of motion, supple/symm/no masses Respiratory: chest non-tender, lungs clear, normal breath sounds, speaking full sentences Cardiovascular #1: regular rate, rhythm, no edema Cardiovascular #2: 2+ carotid (R), 2+ carotid (L), 2+ radial (R), 2+ radial (L) , 2+ dorsalis pedis (R), 2+ dorsalis pedis (L) Gastrointestinal: normal bowel sounds, non tender, soft, non-distended, no guarding, no rebound Rectal: deferred Genitourinary: normal inspection, no CVA tenderness Musculoskeletal: back normal, gait/station normal, normal range of motion, non- tender Neurologic: alert, oriented x3, responsive, motor strength/tone normal, sensory intact, speech normal Psychiatric: judgement/insight normal, memory normal, mood/affect normal, no suicidal/homicidal ideation Reflexes: 3+ bicep (R), 3+ bicep (L), 3+ tricep (R), 3+ tricep (L), 3+ knee (R) , 3+ knee (L) Skin: normal color, no rash, warm/dry, well hydrated Lymphatic: no adenopathy Medical Decision Making Diagnostic Impression: Primary Impression: ESRD (end stage renal disease) Additional Impressions: Dizziness Tingling of left upper extremity ER Course Hospital Course 68 yo F presents to eD c/o dizziness, c/o tingling to LUE. h/o ESRD Differential diagnoses include: dehydration, arrythmia, CVA Clinical course Patient placed on stretcher. on rn cardiac cath. After initial history and physical I ordered labs, EKG, chest Xray, CT Brain labs reviewed- no leukocytosis, Hb/Hct stable, BUN/Cr elevated, troponins negative CT Brain - unremarkable Chest x-ray- no acute process EKG - NSR, twave inversions in lateral leads Discussed case with PMD Dr. Henry who is at bedside. There is no focal neurological deficits. Troponins negative. CT negative. Labs essentially unremarkable. Consideration for a "steal syndrome" from the fistula to the blood supply of the upper extremity. However there is no mottling of skin, no sensory deficit. pulses normal. Dr Henry will contact the patient's vascular surgeon Safe for discharge close outpatient follow-up. Patient will see Dr. Henry in his office as outpatient. I. I feel this is a highly complex case requiring extensive working including EKG/Rhythm strip, Xray/CT/US, Blood/urine lab work, repeat exams while in ED, and administration of strong opiates/narcotics for pain control, admission to hospital or close patient follow up. Diagnosis - ESRD, dzziness, tingling of LUE Stable and discharged to home with Rx Tylenol, tramadol. Followup with PMD/ vascular. Return to ED if symptoms recur or worsen Labs Test 08/04/18 13:55 White Blood Count 4.6 K/UL (4.8-10.8) Red Blood Count 3.62 M/UL (4.20-5.40) Hemoglobin 11.5 G/DL (12.0-16.0) Hematocrit 34.4 % (37.0-47.0) Mean Corpuscular Volume 95 FL (80-99) Mean Corpuscular Hemoglobin 31.6 PG (27.0-31.0) Mean Corpuscular Hemoglobin Concent 33.3 G/DL (32.0-36.0) Red Cell Distribution Width 13.3 % (11.6-14.8) Platelet Count 194 K/UL (150-450) Mean Platelet Volume 6.9 FL (6.5-10.1) Neutrophils (%) (Auto) 69.0 % (45.0-75.0) Lymphocytes (%) (Auto) 16.2 % (20.0-45.0) Monocytes (%) (Auto) 7.7 % (1.0-10.0) Eosinophils (%) (Auto) 5.3 % (0.0-3.0) Basophils (%) (Auto) 1.8 % (0.0-2.0) Sodium Level 136 MMOL/L (136-145) Potassium Level 4.2 MMOL/L (3.5-5.1) Chloride Level 93 MMOL/L (98-107) Carbon Dioxide Level 36 MMOL/L (21-32) Anion Gap 7 mmol/L (5-15) Blood Urea Nitrogen 25 mg/dL (7-18) Creatinine 3.1 MG/DL (0.55-1.30) Estimat Glomerular Filtration Rate 14.9 mL/min (>60) Glucose Level 157 MG/DL (74-106) Calcium Level 8.1 MG/DL (8.5-10.1) Total Bilirubin 0.9 MG/DL (0.2-1.0) Aspartate Amino Transf (AST/SGOT) 30 U/L (15-37) Alanine Aminotransferase (ALT/SGPT) 12 U/L (12-78) Alkaline Phosphatase 218 U/L (46-116) Total Creatine Kinase 327 U/L (26-308) Creatine Kinase MB 2.2 NG/ML (0.0-3.6) Creatine Kinase MB Relative Index 0.6 Troponin I 0.016 ng/mL (0.000-0.056) Pro-B-Type Natriuretic Peptide 87680 pg/mL (0-125) Total Protein 7.9 G/DL (6.4-8.2) Albumin 3.6 G/DL (3.4-5.0) Globulin 4.3 g/dL Albumin/Globulin Ratio 0.8 (1.0-2.7) EKG Diagnostic Results Rate: normal Rhythm: NSR ST Segments: other - twave inversions in lateral leads ASA given to the pt in ED: No Rhythm Strip Diag. Results EP Interpretation: yes Rhythm: NSR, no PVC's, no ectopy Chest X-Ray Diagnostic Results Chest X-Ray Diagnostic Results : Chest X-Ray Ordered: Yes # of Views/Limited/Complete: 1 View Indication: Other - dizziness EP Interpretation: Yes Interpretation: no consolidation, no effusion, no pneumothorax, no acute cardiopulmonary disease Impression: No acute disease Electronically Signed by: Electronically signed by Kd Ware MD CT/MRI/US Diagnostic Results CT/MRI/US Diagnostic Results : Imaging Test Ordered: CT Head Impression no acute process Last Vital Signs Date Time Temp Pulse Resp B/P (MAP) Pulse Ox O2 Delivery O2 Flow Rate FiO2 08/04/18 12:33 98.2 86 15 137/97 100 Room Air Status: improved Disposition: HOME, SELF-CARE Condition: Stable Scripts Tramadol Hcl* (ULTRAM*) 50 Mg Tablet 50 MG ORAL Q6H PRN for For Pain for 3 Days, TAB 0 Refills Prov: Kd Ware MD 08/04/18 Acetaminophen* (TYLENOL EXTRA STRENGTH*) 500 Mg Tablet 500 MG ORAL Q8H PRN for Prn Headache/Temp > 101, #30 TAB 0 Refills Prov: Kd Ware MD 08/04/18 Referrals: Francis Falk MD (PCP) Kd Ware MD Aug 04, 2018 15:21
[2018-08-04] MEDS ORDERED: TYLENOL EXTRA500 MG ORAL (15:34)
[2018-08-04] MEDS ORDERED: TRAMADOL HCL50 MG ORAL (15:34)
[2018-08-04 15:55] VITALS: BP 137/97
--- NOTE | 2018-08-04 15:55 | NUR ---
ED Nurse Note: patient is being discharged, cleared by ERMD, Discharge instructions/paper/prescription given to the patient, patient verbalized understanding, signed paper. a/o x4. All belongings taken with the patient. patient is ambulatory, steady gait. ID band removed. IV removed without complication
== END 2018-08-04 13:55 | disposition home or self-care (01) ==
LOC: EMR 12:46
DX: N18.6 End stage renal disease (principal); I12.0 Hypertensive chronic kidney disease with stage 5 chronic kidney disease or end stage renal disease; E11.22 Type 2 diabetes mellitus with diabetic chronic kidney disease; Z99.2 Dependence on renal dialysis; Z86.73 Personal history of transient ischemic attack (TIA), and cerebral infarction without residual deficits; R42 Dizziness and giddiness; R20.2 Paresthesia of skin
CPT/HCPCS: 36415; 70450; 71045; 80053; 82550; 82553; 83880; 84484; 85025; 99284

== ENCOUNTER 2018-10-06 08:19 | Inpatient (IN) | payer MEDICARE, MEDICAID ==
[~2018-10-06] VITALS: Ht 165.1 cm; Wt 76.2 kg
[~2018-10-06 08:19] MED LIST changes: +TRAMADOL HCL50 MG ORAL; +TYLENOL EXTRA500 MG ORAL
[2018-10-06] MEDS ORDERED: Morphine Sulfate 4mg/ml Inj (IV USE ONLY) IVP ONE (08:45)
[2018-10-06] MEDS: Ipratropium 0.02% Inh Soln 2.5ml UD HHN SCH ×3 (08:46→09:29)
[2018-10-06] MEDS: Albuterol ud Inhalation HHN SCH ×3 (08:46→09:28)
[2018-10-06 09:03] VITALS: BP 157/72
[2018-10-06 09:08] LABS: HEMATOCRIT 28.6 % (37.0-47.0); HEMOGLOBIN 9.4 G/DL (12.0-16.0); MEAN CORPUSCULAR VOLUME 93 FL (80-99); PLATELET COUNT 194 K/UL (150-450); RED BLOOD COUNT 3.06 M/UL (4.20-5.40); RED CELL DISTRIBUTION WIDTH 14.3 % (11.6-14.8); WHITE BLOOD COUNT 5.2 K/UL (4.8-10.8)
--- NOTE | 2018-10-06 09:18 | Emergency Room Report ---
History of Present Illness General Chief Complaint: Dyspnea/Respdistress Source: Patient Present Illness HPI 68-year-old female presents ED for evaluation. Patient complaining of shortness of breath and chest pain since last night. States she has history of end-stage renal disease. Gets dialysis Thursday. Has missed dialysis since last Thursday because "not feeling well". Pain is sharp, 5 out of 10, nonradiating. Denies fevers or chills. Denies nausea or vomiting. No other aggravating relieving factors. Denies any other associated symptoms Allergies: Coded Allergies: No Known Allergies (Unverified , 05/12/17) Patient History Past Medical History: DM, HTN, asthma, CVA/TIA, renal disease, dialysis Pertinent Family History: none Social History: Denies: smoking, alcohol use, drug use Last Menstrual Period: na Now: No Immunizations: UTD Reviewed Nursing Documentation: PMH: Agreed; PSxH: Agreed Nursing Documentation-PMH Past Medical History: No History, Except For Hx Cardiac Problems: Yes Hx Hypertension: Yes Hx Pacemaker: No Hx Asthma: Yes Hx COPD: No Hx Diabetes: Yes - TYPE 2 DIABETES MELLITUS Hx Cancer: No Hx Gastrointestinal Problems: No Hx Dialysis: Yes Hx Neurological Problems: No Hx Transient Ischemic Attacks: Yes - ACUTE ISCHEMIC HEART DISEASE Hx Dementia: No Hx Alzheimer's Disease: No Hx Parkinson's Disease: No Hx Meningitis: No Hx Encephalitis: No Hx Seizures: No Hx Epilepsy: No Hx Multiple Sclerosis: No Hx Cerebral Palsy: No Hx Amyotrophic Lat Sclerosis: No Hx Guillian-Ector Syndrome: No Hx Paralysis: No Hx Peripheral Neuropathy: No Hx Spinal Cord Injury: No Hx Head Trauma: No Hx Traumatic Brain Injury: No Hx Memory Loss: No Hx Concentration Difficulty: No Hx Speech Problem: No Hx Tremors: No Hx Vertigo: No Hx Dizziness: No Hx Syncope: No Hx Headaches: No Hx Aphasia: No Hx Dysphasia: No Hx Numbness: No Hx Weakness: Yes - MUSCLE WEAKNESS Hx Fatigue: No Hx Neurologic Surgery: No Hx Brain Shunt: No Review of Systems All Other Systems: negative except mentioned in HPI Physical Exam Vital Signs Date Time Temp Pulse Resp B/P (MAP) Pulse Ox O2 Delivery O2 Flow Rate FiO2 10/06/18 08:29 98.4 98 35 149/72 100 Room Air 10/06/18 08:45 21 Sp02 EP Interpretation: reviewed, normal General Appearance: no apparent distress, alert, GCS 15, non-toxic Head: normocephalic, atraumatic Eyes: bilateral eye normal inspection, bilateral eye PERRL ENT: hearing grossly normal, normal pharynx, no angioedema, normal voice Neck: full range of motion, supple/symm/no masses Respiratory: chest non-tender, accessory muscle use, crackles Cardiovascular #1: regular rate, rhythm, no edema Cardiovascular #2: 2+ carotid (R), 2+ carotid (L), 2+ radial (R), 2+ radial (L) , 2+ dorsalis pedis (R), 2+ dorsalis pedis (L) Gastrointestinal: normal bowel sounds, non tender, soft, non-distended, no guarding, no rebound Rectal: deferred Genitourinary: normal inspection, no CVA tenderness Musculoskeletal: back normal, gait/station normal, normal range of motion, non- tender Neurologic: alert, oriented x3, responsive, motor strength/tone normal, sensory intact, speech normal Psychiatric: judgement/insight normal, memory normal, mood/affect normal, no suicidal/homicidal ideation Reflexes: 3+ bicep (R), 3+ bicep (L), 3+ tricep (R), 3+ tricep (L), 3+ knee (R) , 3+ knee (L) Skin: normal color, no rash, warm/dry, well hydrated Lymphatic: no adenopathy Procedures Critical Care Time Critical Care Time i. I feel this is a highly complex case requiring extensive working including EKG/Rhythm strip, Xray/CT/US, Blood/urine lab work, repeat exams while in ED, and administration of strong opiates/narcotics for pain control, admission to hospital or close patient follow up. Total time: 30 min bedside evaluation and treatment excludes procedures (EKG). Reason for critical care: respiratory distress, hyperkalemia, ESRD Possible complications: hypotension, hypertension, TN, shock, arrhythmias, metabolic acidosis, end organ damage, respiratory failure. Interventions: labs, EKG, CXR, nebulizer treatments, discussion with Nephrology. aspirin. calcium, insulin/D50 Course: Patient presenting with shortness of breath. Chest pain. States that she missed dialysis twice. Given breathing treatments. Potassium 6.0. Troponin 0.074. EKG shows peaked T waves in anterior leads. No ST elevations. Given pain meds. Discussed with nephrology. given calcium, insulin/D50. given aspirin Consultations: nursing staff, EMS, family Performed by: Dr Ware Tolerated well condition = serious j. because of unstable vital signs this patient had a condition that could potentially threaten life or limb. I feel this is a critical patient who required my full attention while patient was considered critical. Total Critical Care Time excluding procedures was greater than 35 minutes Medical Decision Making Diagnostic Impression: Primary Impression: Dyspnea Qualified Codes: R06.00 - Dyspnea, unspecified Additional Impressions: ESRD (end stage renal disease) ACS (acute coronary syndrome) Hyperkalemia, diminished renal excretion ER Course Hospital Course 68 yo F presents with chest pain, SOB. missed dialysis x 2. Differential diagnoses include: TN/unstable angina, V. tach, bradycardia, hyperkalemia, fluid overload Clinical course Patient placed on stretcher. on monitoring and evaluation advisor. After initial history and physical I ordered labs, EKG, nebulizer treatments labs reviewed- potassium 6.0. BUN/Cr elevated. Hemoglobin/hematocrit normal. Trop 0.074 EKG - peaked twaves in anterior leads. no ST elevations CXR - interstitital congestion Given insulin/D50 and calcium. given aspirin. discussed with track mechanic Dr Henry. Case discussed with Dr. Daniel and he agreed to accept the patient to his service for further care and support I. I feel this is a highly complex case requiring extensive working including EKG/Rhythm strip, Xray/CT/US, Blood/urine lab work, repeat exams while in ED, and administration of strong opiates/narcotics for pain control, admission to hospital or close patient follow up. Diagnosis - dyspnea, ESRD, ACS, hyperkalemia admitted to telemetry in serious condition Labs Test 10/06/18 08:37 10/06/18 09:23 White Blood Count 5.2 K/UL (4.8-10.8) Red Blood Count 3.06 M/UL (4.20-5.40) Hemoglobin 9.4 G/DL (12.0-16.0) Hematocrit 28.6 % (37.0-47.0) Mean Corpuscular Volume 93 FL (80-99) Mean Corpuscular Hemoglobin 30.7 PG (27.0-31.0) Mean Corpuscular Hemoglobin Concent 32.9 G/DL (32.0-36.0) Red Cell Distribution Width 14.3 % (11.6-14.8) Platelet Count 194 K/UL (150-450) Mean Platelet Volume 6.8 FL (6.5-10.1) Neutrophils (%) (Auto) % (45.0-75.0) Lymphocytes (%) (Auto) % (20.0-45.0) Monocytes (%) (Auto) % (1.0-10.0) Eosinophils (%) (Auto) % (0.0-3.0) Basophils (%) (Auto) % (0.0-2.0) Differential Total Cells Counted 100 Neutrophils % (Manual) 86 % (45-75) Lymphocytes % (Manual) 7 % (20-45) Monocytes % (Manual) 7 % (1-10) Eosinophils % (Manual) 0 % (0-3) Basophils % (Manual) 0 % (0-2) Band Neutrophils 0 % (0-8) Platelet Estimate Adequate Platelet Morphology Normal Anisocytosis 1+ Sodium Level 138 MMOL/L (136-145) Potassium Level 6.0 MMOL/L (3.5-5.1) Chloride Level 104 MMOL/L (98-107) Carbon Dioxide Level 24 MMOL/L (21-32) Anion Gap 14 mmol/L (5-15) Blood Urea Nitrogen 95 mg/dL (7-18) Creatinine 6.4 MG/DL (0.55-1.30) Estimat Glomerular Filtration Rate 6.5 mL/min (>60) Glucose Level 279 MG/DL (74-106) Lactic Acid Level 1.30 mmol/L (0.4-2.0) Calcium Level 8.3 MG/DL (8.5-10.1) Total Bilirubin 0.9 MG/DL (0.2-1.0) Aspartate Amino Transf (AST/SGOT) 13 U/L (15-37) Alanine Aminotransferase (ALT/SGPT) 8 U/L (12-78) Alkaline Phosphatase 174 U/L (46-116) Total Creatine Kinase 179 U/L (26-308) Creatine Kinase MB 2.3 NG/ML (0.0-3.6) Creatine Kinase MB Relative Index 1.2 Troponin I 0.074 ng/mL (0.000-0.056) Pro-B-Type Natriuretic Peptide 77973 pg/mL (0-125) Total Protein 8.3 G/DL (6.4-8.2) Albumin 3.4 G/DL (3.4-5.0) Globulin 4.9 g/dL Albumin/Globulin Ratio 0.7 (1.0-2.7) Urine Color Pale yellow Urine Appearance Clear Urine pH 7 (4.5-8.0) Urine Specific [place] 1.010 (1.005-1.035) Urine Protein 4+ (NEGATIVE) Urine Glucose (UA) 2+ (NEGATIVE) Urine Ketones 1+ (NEGATIVE) Urine Blood 2+ (NEGATIVE) Urine Nitrite Negative (NEGATIVE) Urine Bilirubin Negative (NEGATIVE) Urine Urobilinogen Normal MG/DL (0.0-1.0) Urine Leukocyte Esterase 1+ (NEGATIVE) Urine RBC 2-4 /HPF (0 - 2) Urine WBC 0-2 /HPF (0 - 2) Urine Squamous Epithelial Cells Few /LPF (NONE/OCC) Urine Bacteria Occasional /HPF (NONE) EKG Diagnostic Results Rate: normal Rhythm: NSR ST Segments: other - peaked twaves anterior leads Rhythm Strip Diag. Results EP Interpretation: yes Rhythm: NSR, no PVC's Chest X-Ray Diagnostic Results Chest X-Ray Diagnostic Results : Chest X-Ray Ordered: Yes # of Views/Limited/Complete: 1 View Indication: Shortness of Breath EP Interpretation: Yes Interpretation: no pneumothorax, other - interstitial congestion Impression: Other - chf Electronically Signed by: Electronically signed by Kd Ware MD Last Vital Signs Date Time Temp Pulse Resp B/P (MAP) Pulse Ox O2 Delivery O2 Flow Rate FiO2 10/06/18 09:04 90 20 Room Air 21 10/06/18 09:03 98.4 157/72 99 Status: improved Disposition: ADMITTED INPATIENT Condition: Serious Referrals: NOT CHOSEN IPA/,REFERRING (PCP) Kd Ware MD Oct 06, 2018 09:18
[2018-10-06 09:35] LABS: ALANINE AMINOTRANSFERASE 8 U/L (12-78); ALBUMIN 3.4 G/DL (3.4-5.0); ALBUMIN/GLOBULIN RATIO 0.7 (1.0-2.7); ALKALINE PHOSPHATASE 174 U/L (46-116); ANION GAP 14 mmol/L (5-15); ASPARTATE AMINO TRANSFERASE 13 U/L (15-37); BILIRUBIN,TOTAL 0.9 MG/DL (0.2-1.0); BLOOD UREA NITROGEN 95 mg/dL (7-18); CALCIUM 8.3 MG/DL (8.5-10.1); CARBON DIOXIDE 24 MMOL/L (21-32); CHLORIDE 104 MMOL/L (98-107); CKMB 2.3 NG/ML (0.0-3.6); CREATINE KINASE 179 U/L (26-308); CREATININE 6.4 MG/DL (0.55-1.30); SODIUM 138 MMOL/L (136-145)
[2018-10-06 09:50] LABS: APPEARANCE,URINE CLEAR; BILIRUBIN, URINE NEGATIVE (NEGATIVE); COLOR,URINE PALE YELLOW; GLUCOSE, URINE (UA) 2+ (NEGATIVE); KETONES,URINE 1+ (NEGATIVE); LEUKOCYTE ESTERASE ,URINE 1+ (NEGATIVE); NITRITE,URINE NEGATIVE (NEGATIVE); PH,URINE 7 (4.5-8.0); PROTEIN,URINE 4+ (NEGATIVE); UROBILINOGEN,URINE NORMAL MG/DL (0.0-1.0)
[2018-10-06] MEDS ORDERED: Insulin Human Regular 100units/ml 3ml IV ONE (10:00)
[2018-10-06] MEDS ORDERED: Calcium Gluconate 1gm/10ml vial IVP ONE (10:00)
[2018-10-06 10:10] VITALS: BP 152/78
--- NOTE | 2018-10-06 10:51 | Diagnostic Imaging Report ---
Indication: Shortness of Technique: One view of the chest Comparison: 08/04/2018 Findings: Interim development of extensive bilateral airspace disease. There are also small bilateral pleural effusions, new on the left, new or increased on the right. The heart is enlarged. Impression: Cardiomegaly Extensive bilateral diffuse pulmonary airspace disease, likely airspace edema versus infiltrates Small bilateral pleural effusions
[2018-10-06] MEDS ORDERED: Acetaminophen 500mg (ES) tab ORAL PRN ×3 (14:15→17:00)
[2018-10-06] MEDS ORDERED: HydrALAZINE 25mg tab ORAL PRN (15:30)
[2018-10-06] MEDS ORDERED: NORMODYNE100 MG ORAL (16:43)
[2018-10-06] MEDS ORDERED: traMADol 50mg tab ORAL PRN (16:45)
--- NOTE | 2018-10-06 16:45 | Consultation ---
Consult Note Consult Note patient under my care for dialysis related management 68-year-old female presents ED for evaluation. Patient complaining of shortness of breath and chest pain since last night. States she has history of end-stage renal disease. Gets dialysis Thursday. Has missed dialysis since last Thursday because "not feeling well". Pain is sharp, 5 out of 10, nonradiating. Denies fevers or chills. Denies nausea or vomiting. No other aggravating relieving factors. Denies any other associated symptoms No Known Allergies (Unverified , 05/12/17) Past Medical History: DM, HTN, asthma, CVA/TIA, renal disease, dialysis Past Medical History: No History, Except For Hx Cardiac Problems: Yes Hx Hypertension: Yes Hx Pacemaker: No Hx Asthma: Yes Hx Diabetes: Yes - TYPE 2 DIABETES MELLITUS Hx Dialysis: Yes Hx Transient Ischemic Attacks: Yes - ACUTE ISCHEMIC HEART DISEASE Hx Weakness: Yes - MUSCLE WEAKNESS excamined data reviewed Assessment/Plan - Hyperkalemia missed dialysis 3/4 - Volume overload - ESRD (end stage renal disease) missed HD 3/4 - Hypertensive kidney disease - h/o CAD - Diabetic nephropathy with proteinuria - h/o Anemia , low B12 and low Iron - h/o Dizziness and unsteady gait Plan Renal diet- HTN, meds adjusted Reglan PO HD today and UF Per orders pain management gastric support Francis Falk MD Oct 06, 2018 16:45
[2018-10-06] MEDS ORDERED: Albuterol/Ipratropium 3ml neb HHN PRN (17:15)
[2018-10-06] MEDS: Docusate 100mg cap ORAL SCH (18:00)
[2018-10-06] MEDS: Albuterol/Ipratropium 3ml neb HHN SCH (18:49)
[2018-10-06 20:00] VITALS: BP 173/82
[2018-10-06] MEDS ORDERED: Atorvastatin 80mg tab ORAL SCH (21:00)
[2018-10-06] MEDS: Metoprolol Tartrate 50mg tab ORAL SCH (21:00)
[2018-10-06] MEDS: Atorvastatin 80mg tab ORAL SCH (21:00)
[2018-10-06] MEDS: Levemir Flexpen SUBQ SCH (21:18)
[2018-10-06] MEDS: NovoLOG Insulin Flexpen SUBQ SCH (21:19)
--- NOTE | 2018-10-06 21:34 | Cardiology Progress Note ---
Assessment/Plan Assessment/Plan The patient is seen and examined, full cardiology consult note is dictated. Objective Last 24 Hour Vital Signs Date Time Temp Pulse Resp B/P (MAP) Pulse Ox O2 Delivery O2 Flow Rate FiO2 10/06/18 18:59 97 22 96 Nasal Cannula 4.0 36 10/06/18 18:49 102 24 91 Nasal Cannula 4.0 36 10/06/18 18:48 Nasal Cannula 4.0 36 10/06/18 18:48 91 Nasal Cannula 4.0 36 10/06/18 17:33 98 22 96 Nasal Cannula 4.0 36 10/06/18 17:30 Nasal Cannula 4.0 36 10/06/18 17:30 95 Nasal Cannula 4.0 36 10/06/18 17:26 108 22 93 Nasal Cannula 4.0 36 10/06/18 16:00 106 10/06/18 13:42 Nasal Cannula 2.0 10/06/18 12:00 95 10/06/18 11:32 94 10/06/18 10:57 98.4 97 23 152/78 100 Room Air 21 10/06/18 10:15 91 16 99 Room Air 10/06/18 10:10 98.4 97 23 152/78 100 Room Air 21 10/06/18 09:30 21 10/06/18 09:14 98.4 10/06/18 09:05 21 10/06/18 09:04 90 20 Room Air 21 10/06/18 09:03 98.4 90 20 157/72 99 Room Air 21 10/06/18 08:45 21 10/06/18 08:45 99 20 Room Air 21 10/06/18 08:45 99 20 95 Room Air 21 10/06/18 08:29 98.4 98 35 149/72 100 Room Air Laboratory Tests Test 10/06/18 08:37 10/06/18 09:23 White Blood Count 5.2 K/UL (4.8-10.8) Red Blood Count 3.06 M/UL (4.20-5.40) L Hemoglobin 9.4 G/DL (12.0-16.0) L Hematocrit 28.6 % (37.0-47.0) L Mean Corpuscular Volume 93 FL (80-99) Mean Corpuscular Hemoglobin 30.7 PG (27.0-31.0) Mean Corpuscular Hemoglobin Concent 32.9 G/DL (32.0-36.0) Red Cell Distribution Width 14.3 % (11.6-14.8) Platelet Count 194 K/UL (150-450) Mean Platelet Volume 6.8 FL (6.5-10.1) Neutrophils (%) (Auto) % (45.0-75.0) Lymphocytes (%) (Auto) % (20.0-45.0) Monocytes (%) (Auto) % (1.0-10.0) Eosinophils (%) (Auto) % (0.0-3.0) Basophils (%) (Auto) % (0.0-2.0) Differential Total Cells Counted 100 Neutrophils % (Manual) 86 % (45-75) H Lymphocytes % (Manual) 7 % (20-45) L Monocytes % (Manual) 7 % (1-10) Eosinophils % (Manual) 0 % (0-3) Basophils % (Manual) 0 % (0-2) Band Neutrophils 0 % (0-8) Platelet Estimate Adequate Platelet Morphology Normal Anisocytosis 1+ Sodium Level 138 MMOL/L (136-145) Potassium Level 6.0 MMOL/L (3.5-5.1) *H Chloride Level 104 MMOL/L (98-107) Carbon Dioxide Level 24 MMOL/L (21-32) Anion Gap 14 mmol/L (5-15) Blood Urea Nitrogen 95 mg/dL (7-18) H Creatinine 6.4 MG/DL (0.55-1.30) H Estimat Glomerular Filtration Rate 6.5 mL/min (>60) Glucose Level 279 MG/DL (74-106) H Lactic Acid Level 1.30 mmol/L (0.4-2.0) Calcium Level 8.3 MG/DL (8.5-10.1) L Total Bilirubin 0.9 MG/DL (0.2-1.0) Aspartate Amino Transf (AST/SGOT) 13 U/L (15-37) L Alanine Aminotransferase (ALT/SGPT) 8 U/L (12-78) L Alkaline Phosphatase 174 U/L (46-116) H Total Creatine Kinase 179 U/L (26-308) Creatine Kinase MB 2.3 NG/ML (0.0-3.6) Creatine Kinase MB Relative Index 1.2 Troponin I 0.074 ng/mL (0.000-0.056) C-Reactive Protein, Quantitative 10.8 mg/dL (0.00-0.90) H Pro-B-Type Natriuretic Peptide 17989 pg/mL (0-125) H Total Protein 8.3 G/DL (6.4-8.2) H Albumin 3.4 G/DL (3.4-5.0) Globulin 4.9 g/dL Albumin/Globulin Ratio 0.7 (1.0-2.7) L Urine Color Pale yellow Urine Appearance Clear Urine pH 7 (4.5-8.0) Urine Specific [place] 1.010 (1.005-1.035) Urine Protein 4+ (NEGATIVE) H Urine Glucose (UA) 2+ (NEGATIVE) H Urine Ketones 1+ (NEGATIVE) H Urine Blood 2+ (NEGATIVE) H Urine Nitrite Negative (NEGATIVE) Urine Bilirubin Negative (NEGATIVE) Urine Urobilinogen Normal MG/DL (0.0-1.0) Urine Leukocyte Esterase 1+ (NEGATIVE) H Urine RBC 2-4 /HPF (0 - 2) H Urine WBC 0-2 /HPF (0 - 2) Urine Squamous Epithelial Cells Few /LPF (NONE/OCC) Urine Bacteria Occasional /HPF (NONE) Microbiology Date/Time Source Procedure Growth Status 10/06/18 08:37 Nasal Nares Influenza Types A,B Antigen ([facility]USIE) - Final Complete Zev Alfonso MD Oct 06, 2018 21:34
[2018-10-07] VITALS: BP 146/78
[2018-10-07] MEDS: Albuterol/Ipratropium 3ml neb HHN SCH ×4 (01:37→19:47)
[2018-10-07 04:00] VITALS: BP 150/75
--- NOTE | 2018-10-07 06:02 | History and Physical Report ---
DATE OF ADMISSION: 10/06/2018 HISTORY OF PRESENT ILLNESS: The patient comes in with basically chest pain and shortness of breath. The patient missed dialysis, and she has end-stage renal disease. The patient has also had hyperkalemia. The patient also has a history of asthma and currently she has chest pain and shortness of breath. She is a dialysis patient, missed some dialysis sessions. The patient was admitted for fluid overload as well as rule out ACS as well as for hyperkalemia. The patient denies orthopnea. Denies history of congestive heart failure. PAST MEDICAL HISTORY: Significant for end-stage renal disease, hyperlipidemia, constipation, anemia of chronic disease, chronic pain syndrome, NIDDM, hypothyroidism, GERD, hypertension, constipation, and chronic pain syndrome. PAST SURGICAL HISTORY: , left arm hemodialysis access. SOCIAL HISTORY: Remote history of alcohol abuse. No history of drug abuse. No history of smoking. ALLERGIES: No known allergies. MEDICATIONS: Lipitor, Colace, folic acid, gabapentin, Levemir, isosorbide mononitrate, Levoxyl, metoprolol, Senokot, and tramadol. FAMILY HISTORY: Diabetes and hypertension. REVIEW OF SYSTEMS: HEENT: Denies headaches. RESPIRATORY: No shortness of breath. Denies cough. CARDIOVASCULAR: Reports chest pain . GASTROINTESTINAL: Denies nausea, vomiting or diarrhea. EXTREMITIES: Chronic pain syndrome. NEUROLOGIC: No significant change in speech pattern. PHYSICAL EXAMINATION: VITAL SIGNS: Temperature is not recorded, pulse is 108. Blood pressure not recorded. HEENT: PERRLA. NECK: Supple. No lymphadenopathy. CHEST: Bibasilar rales. CARDIOVASCULAR: Tachycardic. GASTROINTESTINAL: Soft, positive bowel sounds. Nontender. Abdomen is distended. No organomegaly. EXTREMITIES: 1+ edema. Reflexes in both sides with generalized weakness. LABORATORY DATA: WBC of 5.2, hemoglobin 9.4, and platelets of 194. Sodium 138, potassium 6, carbon dioxide 24, BUN of 95, creatinine of 6.4, and glucose of 279. Potassium was 6. Troponin 0.074. ASSESSMENT AND PLAN: Missed dialysis, shortness of breath, pulmonary edema, hyperkalemia, emergent dialysis per orders. The patient is also diabetic and also has chest pain, rule out acute coronary syndrome. Chest pain, rule out acute coronary syndrome, missed dialysis, electrolyte and hyperkalemia. I have asked basically Dr. Alfonso, Dr. Falk, , and Dr. Mabry to see the patient for the above-mentioned diagnoses and further treatment. will be in-charge of the diabetes and Dr. Falk will have the emergent dialysis and Dr. Mabry will shortness of breath. Dr. Alfonso will also help with the chest pain to rule out acute coronary syndrome. Makenna Daniel M.D. DR: Bernardino JOB#: [id number] CC:
[2018-10-07] MEDS: NovoLOG Insulin Flexpen SUBQ SCH ×7 (06:24→22:21)
[2018-10-07] MEDS ORDERED: Levothyroxine 125mcg tab ORAL SCH (06:30)
[2018-10-07 07:05] LABS: EOSINOPHILS % (AUTO) 0.1 % (0.0-3.0); HEMATOCRIT 26.5 % (37.0-47.0); LYMPHOCYTES % (AUTO) 9.3 % (20.0-45.0); MEAN CORPUSCULAR VOLUME 90 FL (80-99); MONOCYTES % (AUTO) 6.3 % (1.0-10.0); NEUTROPHILS % (AUTO) 83.3 % (45.0-75.0); PLATELET COUNT 192 K/UL (150-450); RED BLOOD COUNT 2.93 M/UL (4.20-5.40); RED CELL DISTRIBUTION WIDTH 13.5 % (11.6-14.8); WHITE BLOOD COUNT 5.3 K/UL (4.8-10.8)
[2018-10-07 07:45] LABS: ALANINE AMINOTRANSFERASE 15 U/L (12-78); ALBUMIN 3.4 G/DL (3.4-5.0); ALBUMIN/GLOBULIN RATIO 0.7 (1.0-2.7); ALKALINE PHOSPHATASE 151 U/L (46-116); ANION GAP 10 mmol/L (5-15); ASPARTATE AMINO TRANSFERASE 14 U/L (15-37); BILIRUBIN,TOTAL 1.1 MG/DL (0.2-1.0); BLOOD UREA NITROGEN 67 mg/dL (7-18); CALCIUM 8.8 MG/DL (8.5-10.1); CARBON DIOXIDE 28 MMOL/L (21-32); CHLORIDE 98 MMOL/L (98-107); CHOLESTEROL 155 MG/DL (< 200); CREATINE KINASE 475 U/L (26-308); CREATININE 5.1 MG/DL (0.55-1.30); FERRITIN 1075 NG/ML (8-388); GAMMA GLUTAMYL TRANSPEPTIDASE 48 U/L (5-85); HDL CHOLESTEROL 47 MG/DL (40-60); PHOSPHORUS 5.2 MG/DL (2.5-4.9); POTASSIUM 5.4 MMOL/L (3.5-5.1); SODIUM 136 MMOL/L (136-145); TRIGLYCERIDES 173 MG/DL (30-150)
[2018-10-07 07:50] LABS: BILIRUBIN,DIRECT 0.2 MG/DL (0.0-0.3)
[2018-10-07 08:09] LABS: % IRON SATURATION 18 % (15-50); IRON 33 ug/dL (50-175); TOTAL IRON BINDING CAPACITY 184 ug/dL (250-450)
[2018-10-07 08:40] VITALS: BP 151/63
[2018-10-07] MEDS ORDERED: Insulin Human Regular 100units/ml 3ml SUBQ SCH (09:00)
[2018-10-07] MEDS ORDERED: Imdur 30mg tab ORAL SCH ×2 (09:00→13:45)
[2018-10-07] MEDS: Lisinopril 20mg tab ORAL SCH (09:29)
[2018-10-07] MEDS: Sennosides 8.6mg tab ORAL SCH (09:29)
[2018-10-07] MEDS: Metoprolol Tartrate 50mg tab ORAL SCH (09:30)
[2018-10-07] MEDS: Docusate 100mg cap ORAL SCH ×3 (09:30→17:04)
[2018-10-07] MEDS: Aspirin Baby 81mg ORAL SCH (09:30)
[2018-10-07] MEDS: Levemir Flexpen SUBQ SCH ×2 (10:18→18:00)
[2018-10-07] MEDS ORDERED: Metoprolol Tartrate 50mg tab ORAL SCH (11:45)
[2018-10-07 12:00] VITALS: BP 152/82
--- NOTE | 2018-10-07 12:02 | Consultation ---
Consult Note Assessment/Plan DICT # [id number] Mauri Mabry MD Oct 07, 2018 12:02
[2018-10-07] MEDS ORDERED: Sodium Polystyrene Sulfonate 15gm Powder ORAL ONE (13:00)
--- NOTE | 2018-10-07 13:43 | Nephrology Progress Note ---
Assessment/Plan Problem List: (1) ESRD (end stage renal disease) (2) Hyperkalemia, diminished renal excretion (3) ACS (acute coronary syndrome) (4) Hypertensive kidney disease Assessment - Hyperkalemia missed dialysis 10/04 - Volume overload - ESRD (end stage renal disease) missed HD 34 - Hypertensive kidney disease - h/o CAD - Diabetic nephropathy with proteinuria - h/o Anemia , low B12 and low Iron - h/o Dizziness and unsteady gait Plan Plan Renal diet- HTN, meds adjusted Reglan PO HD 10/06 and UF, next 10/08 Per orders pain management gastric support Subjective ROS Limited/Unobtainable: No Constitutional: Reports: malaise, other Objective Objective Last 24 Hour Vital Signs Date Time Temp Pulse Resp B/P (MAP) Pulse Ox O2 Delivery O2 Flow Rate FiO2 10/07/18 13:25 92 22 97 Venturi Mask 10.0 45 10/07/18 13:20 87 18 95 Venturi Mask 10.0 45 10/07/18 12:41 101 151/63 10/07/18 12:41 101 151/63 10/07/18 09:30 101 151/63 10/07/18 09:30 101 151/63 10/07/18 09:29 151/63 10/07/18 08:40 99.3 101 16 151/63 (92) 92 10/07/18 07:29 Room Air 21 10/07/18 07:29 Room Air 21 10/07/18 07:28 89 21 10/07/18 07:28 Room Air 21 10/07/18 04:00 104 10/07/18 04:00 98.8 108 20 150/75 (100) 93 10/07/18 01:48 95 20 97 Venturi Mask 10.0 45 10/07/18 01:37 93 20 95 Venturi Mask 10.0 45 10/07/18 00:00 98.2 98 20 146/78 (100) 93 10/07/18 00:00 96 10/06/18 23:38 98 146/78 10/06/18 21:00 Nasal Cannula 3.0 10/06/18 20:00 106 10/06/18 20:00 98.4 107 22 173/82 (112) 92 10/06/18 18:59 97 22 96 Nasal Cannula 4.0 36 10/06/18 18:49 102 24 91 Nasal Cannula 4.0 36 10/06/18 18:48 Nasal Cannula 4.0 36 10/06/18 18:48 91 Nasal Cannula 4.0 36 10/06/18 17:33 98 22 96 Nasal Cannula 4.0 36 10/06/18 17:30 Nasal Cannula 4.0 36 10/06/18 17:30 95 Nasal Cannula 4.0 36 10/06/18 17:26 108 22 93 Nasal Cannula 4.0 36 10/06/18 16:00 106 10/06/18 13:42 Nasal Cannula 2.0 Intake and Output 10/06/18 10/07/18 19:00 07:00 Output Total 0 ml Balance 0 ml Output Stool Total 0 ml # Voids 1 Laboratory Tests 10/07/18 05:30: White Blood Count 5.3, Red Blood Count 2.93L, Hemoglobin 9.0L, Hematocrit 26.5L , Mean Corpuscular Volume 90, Mean Corpuscular Hemoglobin 30.8, Mean Corpuscular Hemoglobin Concent 34.0, Red Cell Distribution Width 13.5, Platelet Count 192, Mean Platelet Volume 6.6, Neutrophils (%) (Auto) 83.3H, Lymphocytes ( %) (Auto) 9.3L, Monocytes (%) (Auto) 6.3, Eosinophils (%) (Auto) 0.1, Basophils (%) (Auto) 1.0, Sodium Level 136, Potassium Level 5.4H, Chloride Level 98, Carbon Dioxide Level 28, Anion Gap 10, Blood Urea Nitrogen 67H, Creatinine 5.1H , Estimat Glomerular Filtration Rate 8.4, Glucose Level 233H, Hemoglobin A1c 10.2H, Uric Acid 6.4, Calcium Level 8.8, Phosphorus Level 5.2H, Magnesium Level 1.9, Iron Level 33L, Total Iron Binding Capacity 184L, Percent Iron Saturation 18, Unsaturated Iron Binding 151, Ferritin 1075H, Total Bilirubin 1.1H, Direct Bilirubin 0.2, Gamma Glutamyl Transpeptidase 48, Aspartate Amino Transf (AST/ SGOT) 14L, Alanine Aminotransferase (ALT/SGPT) 15, Alkaline Phosphatase 151H, Total Creatine Kinase 475H, Troponin I 0.411H, Pro-B-Type Natriuretic Peptide > 43817K, Total Protein 8.4H, Albumin 3.4, Globulin 5.0, Albumin/Globulin Ratio 0.7L, Triglycerides Level 173H, Cholesterol Level 155, LDL Cholesterol 76, HDL Cholesterol 47, Cholesterol/HDL Ratio 3.3, Vitamin B12 Level 543, Folate 10.9, Thyroid Stimulating Hormone (TSH) 0.718 10/07/18 13:15: Arterial Blood pH 7.413, Arterial Blood Partial Pressure CO2 43.6, Arterial Blood Partial Pressure O2 86.5, Arterial Blood HCO3 27.2H, Arterial Blood Oxygen Saturation 95.6, Arterial Blood Base Excess 2.3H, Faheem Test Positive Height (Feet): 5 Height (Inches): 1.00 Weight (Pounds): 178 Cardiovascular: tachycardia Respiratory/Chest: decreased breath sounds Abdomen: soft, distended Francis Falk MD Oct 07, 2018 13:43
[2018-10-07 16:00] VITALS: BP 152/66
--- NOTE | 2018-10-07 16:31 | Consultation ---
DATE OF CONSULTATION: 10/07/2018 ENDOCRINOLOGY CONSULTATION CONSULTING PHYSICIAN: Lavell Archer M.D. REFERRING PHYSICIAN: Makenna Daniel M.D. REASON FOR CONSULTATION: 1. Diabetes management. 2. Hypothyroidism. HISTORY OF PRESENT ILLNESS: The patient is a 68-year-old female with history of diabetes and end-stage renal disease under care of Dr. Francis Falk for dialysis, who presents to the hospital with shortness of breath and chest pain. Glucose is elevated. Endocrinology was consulted in order to assist in the management of diabetes. Also, the patient has primary hypothyroidism. PAST MEDICAL HISTORY: 1. Type 2 diabetes. 2. Hypothyroidism. 3. Hypertension. 4. End-stage renal disease on hemodialysis. FAMILY HISTORY: Diabetes. SOCIAL HISTORY: No smoking, alcohol, or drug use. REVIEW OF SYSTEMS: As per HPI. MEDICATIONS: Reviewed and reconciled. LABORATORY AND DIAGNOSTIC DATA: Sodium 138, potassium 6.0, chloride 104, bicarb 24, BUN 95, creatinine 6.4, glucose 279. WBC is 5, hemoglobin is 9, hematocrit 28, and platelet count 194. PHYSICAL EXAMINATION: VITAL SIGNS: Blood pressure 150/75, pulse 104, temperature 98.8, respiratory rate 20. HEENT: Pupils are reactive to light. Sclerae are anicteric. NECK: No JVD. HEART: Regular. LUNGS: Clear. ABDOMEN: Positive bowel sounds. EXTREMITIES: Positive for edema. DIAGNOSES: 1. Chest pain. 2. End-stage renal disease on hemodialysis. 3. Diabetes, out of control. 4. Hypothyroidism. PLAN: 1. Levemir 15 units b.i.d. 2. NovoLog 5 units before each meal. 3. NovoLog sliding scale ac / hs . 4. Levothyroxine 50 mcg daily. 5. Check thyroid function and hemoglobin A1c. 6. I will follow the patient during hospital stay. Thank you, Dr. Daniel, for the courtesy of this consultation. Lavell Archer M.D. DR: SIDNEY/LINSEY JOB#: [id number] CC: EDGAR
--- NOTE | 2018-10-07 16:45 | Consultation ---
DATE OF CONSULTATION: 10/07/2018 PULMONARY CONSULTATION: CONSULTING PHYSICIAN: Mauri Mabry M.D. REFERRING PHYSICIAN: Makenna Daniel M.D. REASON FOR CONSULTATION: Shortness of breath. HISTORY OF PRESENT ILLNESS: The patient is a 68-year-old female with a history of end-stage renal disease on dialysis, who presented to the ER after missed dialysis and shortness of breath. She denies any cough, congestion, wheezing, fevers, chills, or other complaints. PAST MEDICAL HISTORY: 1. End-stage renal disease on dialysis. 2. Hypertension. 3. Hyperlipidemia. 4. Anemia of chronic disease. 5. Chronic pain. 6. Diabetes. 7. Hypothyroidism. 8. GERD. PAST SURGICAL HISTORY: and AV fistula. ALLERGIES: No known drug allergies. MEDICATIONS: Prior to admission medications reviewed. Current medications reviewed. SOCIAL HISTORY: She denies tobacco, alcohol, or drug use. FAMILY HISTORY: Noncontributory. REVIEW OF SYSTEMS: Negative other than history of present illness. PHYSICAL EXAMINATION: VITAL SIGNS: Temperature 98.8, pulse low 100s, respiratory rate 16, saturating 92% on room air, blood pressure 151/63. GENERAL: She is an obese female, in no acute distress. Awake, alert, and oriented x3. HEENT: Normocephalic and atraumatic. Oropharynx is clear with moist mucous membranes. NECK: Supple without lymphadenopathy or JVD. HEART: Regular. ABDOMEN: Benign. EXTREMITIES: No cyanosis, clubbing. 1+ edema is noted. ANCILLARY DATA: White count 5.3, hemoglobin 9, platelet count 192. Sodium 136, potassium 5.4, chloride 98, bicarb 28, BUN 67, creatinine 5.1, glucose 233. Hemoglobin A1c 10.2. Lactic acid 1.3. Uric acid 6.8, calcium 8.8, phosphorus 5.2, magnesium 1.9. Iron 33, TIBC 184, saturation 18, ferritin 1075. Total bilirubin 1.1, alkaline phosphatase 151. Troponin 0.074 and then 0.411. CRP 10.8. BNP 95984. Urinalysis, 1+ leukocyte esterase. Rapid influenza negative. Chest x-ray from the emergency department shows bilateral pulmonary opacities. ASSESSMENT: The patient is a 68-year-old female presenting with shortness of breath in the setting of decompensated heart failure and missed dialysis. She does have bilateral parenchymal opacities noted on the chest x-ray, which likely represent edema, but we will follow these to resolution and likely get a repeat film after dialysis and if persistent at that point, then I will consider getting a CT to evaluate further. She is otherwise fairly stable from a respiratory standpoint. PROBLEM LIST: 1. Shortness of breath in the setting of volume overload and missed dialysis. 2. End-stage renal disease on dialysis presenting with missed dialysis. 3. Hyperkalemia secondary to above. 4. Bilateral pulmonary airspace opacities noted on chest x-ray, likely edema. 5. Diabetes, hypertension, hyperlipidemia, GERD. 6. Obesity. TREATMENT PLAN: 1. Optimize pulmonary hygiene/mobilize as tolerated. 2. Titrate down FiO2 to keep saturations greater than 90%. 3. Monitor volumes and renal function. Dialysis per Renal with UF as able. 4. Follow up echocardiogram. 5. Repeat x-ray after dialysis. 6. Infiltrates and opacities need to be followed to radiographic resolutions. 7. DVT prophylaxis. We will start the patient on heparin subcu. 8. The patient should have a sleep study as an outpatient. 9. Weight loss, diet, and exercise discussed. Dr. Daniel, thank you for allowing me to assist in the care of your patient. If I may be of any assistance in the future, please do not hesitate to ask. Mauri Mabry M.D. DR: SHARON JOB#: [id number] CC:
[2018-10-07 20:00] VITALS: BP 137/56
[2018-10-07] MEDS: Atorvastatin 80mg tab ORAL SCH (21:15)
[2018-10-07] MEDS: Heparin 5000 units/ml inj SUBQ SCH (21:17)
--- NOTE | 2018-10-07 21:46 | Consultation ---
DATE OF CONSULTATION: 10/06/2018 CARDIOLOGY CONSULTATION CONSULTING PHYSICIAN: Zev Gatica M.D. REFERRING PHYSICIAN: Makenna Daniel M.D. REASON FOR CONSULTATION: Management of heart failure. HISTORY OF PRESENT ILLNESS: The patient is a very unfortunate 68-year-old female, who presents to the emergency department with complaints of shortness of breath and chest pain that occurred night of October 05, 2018. The patient has history of end-stage renal disease and apparently missed dialysis last Thursday of the fact that she was not feeling well. At the time of arrival to the hospital, initial blood pressure was 149/72 mmHg and heart rate was 98. She was afebrile. A 12-lead electrocardiogram was significant for sinus rhythm with tall and peaked T-waves in the anterior leads but no evidence of ST and T-wave abnormalities. Initial troponin I level was elevated at 0.074. Chest x-ray was significant for bilateral pleural effusion small and an extensive pulmonary airspace in both lungs consistent with possible congestive heart failure with possible likelihood of airspace edema. The patient was admitted to telemetry for further evaluation and management. Cardiology consultation was made at the request of Dr. Daniel for evaluation and management of dyspnea. PAST MEDICAL HISTORY: Diabetes mellitus, hypertension, end-stage renal disease, chronic obstructive pulmonary disease/asthma, and CVA/TIA. PAST SURGICAL HISTORY: AV fistula. MEDICATIONS: Includes acetaminophen 325 mg q.4 hours p.r.n. mild pain, atorvastatin 40 mg p.o. at bedtime, calcium carbonate 500 plus vitamin D 1 tablet daily, Colace 100 mg p.o. daily, Epogen 10,000 units subcutaneous 3 times a week, ferrous sulfate 325 mg p.o. daily, folic acid 1 mg p.o. daily, furosemide 20 mg p.o. twice daily, gabapentin 300 mg 3 times a day, hydralazine 25 mg p.o. q.6 hours p.r.n. hypertension, [place] 5 /325 one tablet q.4 h. p.r.n. [id number] pain, insulin Levemir 15 units subcutaneous q.12 hours, isosorbide mononitrate 180 mg p.o. daily, labetalol 100 mg twice daily, lansoprazole 30 mg p.o. daily, levothyroxine 137 mcg p.o. daily, lisinopril 20 mg p.o. daily, metoprolol 50 mg p.o. q.12 hours, nifedipine 90 mg p.o. daily, Zofran 4 mg p.o. q.6 hours p.r.n. nausea and vomiting, senna 8.6 mg p.o. daily, tramadol 50 mg p.o. q.6 hours p.r.n. x3 days, vitamin B complex, vitamin C, biotin, and Nephro-Blaze 1 capsule p.o. daily. ALLERGIES: No known drug allergies. FAMILY HISTORY: No premature coronary artery disease in the first-degree relatives. SOCIAL HISTORY: Denies any tobacco, alcohol, or illicit drug use. REVIEW OF SYSTEMS: HEENT: Denies any headache, diplopia, or blurred vision. CONSTITUTIONAL: Denies any fever, chills, night sweats, or weight loss. CARDIOVASCULAR: Denies any chest pain, shortness of breath, PND, orthopnea, or leg swelling. PULMONARY: Complains of shortness of breath and chest pain since 10/05/2018. Denies any PND, orthopnea, or leg swelling. GASTROINTESTINAL: Denies any nausea, vomiting, diarrhea, constipation, abdominal pain, or GI bleed. GENITOURINARY: Missed hemodialysis. On 3 days hemodialysis. NEUROLOGY: Denies any motor dysfunction, sensory deficit, or altered speech. There is prior history of CVA/TIA. MUSCULOSKELETAL: Denies any myalgia or arthralgia. PHYSICAL EXAMINATION: VITAL SIGNS: Blood pressure 149/72, pulse of 98, respirations of 35, temperature 98.4 degrees Fahrenheit, and O2 saturation 100% on room air. GENERAL: The patient is a very unfortunate 68-year-old female, in no apparent respiratory distress. Alert and oriented x4. HEENT: Atraumatic and normocephalic. Anicteric. Pupils are equal, round, and reactive to light and accommodation. Extraocular muscles intact. NECK: JVP less than 5 cm. No carotid bruit. Carotid upstrokes 2+ bilaterally. CARDIOVASCULAR: Normal S1, S2. Regular rate and rhythm. No murmurs, gallops, or rubs. PMI is at fourth intercostal space in the midclavicular line. LUNGS: Clear to auscultation bilaterally. ABDOMEN: Soft, nontender, and nondistended. No hepatosplenomegaly. Positive bowel sounds. EXTREMITIES: No evidence of edema, clubbing, or cyanosis. LABORATORY FINDINGS: Sodium is 138, potassium is 6.0, chloride 104, bicarbonate 24, BUN of 95, creatinine 6.4, and glucose is 279. Calcium is 8.3. ProBNP was 28,780. Troponin I 0.074. ASSESSMENT AND PLAN: This is a very unfortunate 68-year-old female, who is seen in Cardiology consultation. 1. Most likely acute diastolic congestive heart failure. Cannot rule out systolic heart failure. We would like to obtain 2D echocardiography for assessment of LV systolic and diastolic function. This is most likely attributed to missed hemodialysis. Beta-natriuretic peptide is severely elevated. I would like to consider hemodialysis, continuation of use of diuretics, afterload reduction. Further therapeutic and diagnostic decision will be based on the results of 2D echocardiography. 2. History of CVA/TIA. The patient will benefit from combination of aspirin and statins. 3. History of diabetes mellitus. 4. History of hypertension. I will continue the patient's nicardipine, metoprolol, and lisinopril. The patient is on hydralazine on a p.r.n. basis. I would like to thank, Dr. Daniel, for allowing me to participate in the care of this patient. Zev Alfonso M.D. DR: ZAY JOB#: [id number] CC:
--- NOTE | 2018-10-07 22:00 | General Progress Note ---
Assessment/Plan Problem List: (1) Diabetic nephropathy with proteinuria ICD Codes: E11.21 - Type 2 diabetes mellitus with diabetic nephropathy SNOMED: 65087956, 279534431 (2) Dyspnea ICD Codes: R06.00 - Dyspnea, unspecified SNOMED: 460135082 Qualifiers: Qualified Codes: R06.00 - Dyspnea, unspecified (3) ESRD (end stage renal disease) ICD Codes: N18.6 - End stage renal disease SNOMED: 25348683 (4) Hyperkalemia, diminished renal excretion ICD Codes: E87.5 - Hyperkalemia SNOMED: 23941599 (5) Hypertensive kidney disease ICD Codes: I12.9 - Hypertensive chronic kidney disease with stage 1 through stage 4 chronic kidney disease, or unspecified chronic kidney disease SNOMED: 99256430 (6) ACS (acute coronary syndrome) ICD Codes: I24.9 - Acute ischemic heart disease, unspecified SNOMED: 973159817 (7) Pneumonia ICD Codes: J18.9 - Pneumonia, unspecified organism SNOMED: 509149974 Status: progressing Assessment/Plan chest pain r/o acs esrd 0n hd asthma still sob lyte anormality r/o pulm edema reviewed chart and labs Subjective Cardiovascular: Reports: chest pain Respiratory: Reports: shortness of breath Allergies: Coded Allergies: No Known Allergies (Unverified , 05/12/17) Objective Last 24 Hour Vital Signs Date Time Temp Pulse Resp B/P (MAP) Pulse Ox O2 Delivery O2 Flow Rate FiO2 10/07/18 21:15 76 137/56 10/07/18 20:00 100.6 76 20 137/56 (83) 93 10/07/18 19:57 85 18 99 Venturi Mask 8.0 40 10/07/18 19:47 Venturi Mask 10.0 45 10/07/18 19:47 88 18 97 Venturi Mask 10.0 45 10/07/18 19:47 97 Nasal Cannula 10.0 45 10/07/18 16:00 79 10/07/18 16:00 99.1 83 16 152/66 (94) 93 10/07/18 13:55 152/82 10/07/18 13:25 92 22 97 Venturi Mask 10.0 45 10/07/18 13:20 87 18 95 Venturi Mask 10.0 45 10/07/18 12:41 101 151/63 3/7/19 12:41 101 151/63 10/07/18 12:00 81 10/07/18 12:00 98.1 87 16 152/82 (105) 99 10/07/18 09:30 101 151/63 10/07/18 09:30 101 151/63 10/07/18 09:29 151/63 10/07/18 09:00 Nasal Cannula 3.0 10/07/18 08:40 99.3 101 16 151/63 (92) 92 10/07/18 08:00 98 10/07/18 07:29 Room Air 21 10/07/18 07:29 Room Air 21 10/07/18 07:28 89 21 10/07/18 07:28 Room Air 21 10/07/18 04:00 104 10/07/18 04:00 98.8 108 20 150/75 (100) 93 10/07/18 01:48 95 20 97 Venturi Mask 10.0 45 10/07/18 01:37 93 20 95 Venturi Mask 10.0 45 10/07/18 00:00 98.2 98 20 146/78 (100) 93 10/07/18 00:00 96 10/06/18 23:38 98 146/78 Intake and Output 10/06/18 10/07/18 18:59 06:59 Output Total 0 ml Balance 0 ml Output Stool Total 0 ml # Voids 1 Laboratory Tests 10/07/18 05:30: White Blood Count 5.3, Red Blood Count 2.93L, Hemoglobin 9.0L, Hematocrit 26.5L , Mean Corpuscular Volume 90, Mean Corpuscular Hemoglobin 30.8, Mean Corpuscular Hemoglobin Concent 34.0, Red Cell Distribution Width 13.5, Platelet Count 192, Mean Platelet Volume 6.6, Neutrophils (%) (Auto) 83.3H, Lymphocytes ( %) (Auto) 9.3L, Monocytes (%) (Auto) 6.3, Eosinophils (%) (Auto) 0.1, Basophils (%) (Auto) 1.0, Sodium Level 136, Potassium Level 5.4H, Chloride Level 98, Carbon Dioxide Level 28, Anion Gap 10, Blood Urea Nitrogen 67H, Creatinine 5.1H , Estimat Glomerular Filtration Rate 8.4, Glucose Level 233H, Hemoglobin A1c 10.2H, Uric Acid 6.4, Calcium Level 8.8, Phosphorus Level 5.2H, Magnesium Level 1.9, Iron Level 33L, Total Iron Binding Capacity 184L, Percent Iron Saturation 18, Unsaturated Iron Binding 151, Ferritin 1075H, Total Bilirubin 1.1H, Direct Bilirubin 0.2, Gamma Glutamyl Transpeptidase 48, Aspartate Amino Transf (AST/ SGOT) 14L, Alanine Aminotransferase (ALT/SGPT) 15, Alkaline Phosphatase 151H, Total Creatine Kinase 475H, Troponin I 0.411H, Pro-B-Type Natriuretic Peptide > 49813D, Total Protein 8.4H, Albumin 3.4, Globulin 5.0, Albumin/Globulin Ratio 0.7L, Triglycerides Level 173H, Cholesterol Level 155, LDL Cholesterol 76, HDL Cholesterol 47, Cholesterol/HDL Ratio 3.3, Vitamin B12 Level 543, Folate 10.9, Thyroid Stimulating Hormone (TSH) 0.718 10/07/18 13:15: Arterial Blood pH 7.413, Arterial Blood Partial Pressure CO2 43.6, Arterial Blood Partial Pressure O2 86.5, Arterial Blood HCO3 27.2H, Arterial Blood Oxygen Saturation 95.6, Arterial Blood Base Excess 2.3H, Faheem Test Positive Height (Feet): 5 Height (Inches): 1.00 Weight (Pounds): 174 Cardiovascular: normal rate Respiratory/Chest: lungs clear Makenna Daniel MD Oct 07, 2018 22:00
--- NOTE | 2018-10-07 23:35 | Cardiology Progress Note ---
Assessment/Plan Assessment/Plan 1. Acute diastolic congestive heart failure. This is most likely attributed to missed hemodialysis. Beta-natriuretic peptide is severely elevated, continue aggressive hemodialysis, continuation of diuretics and afterload reduction. 2. History of CVA/TIA, continue aspirin and statins. 3. History of diabetes mellitus. 4. History of hypertension. nifedipine, metoprolol and lisinopril, continue hydralazine on a p.r.n. basis. Subjective Subjective Sinus rhythm at rate of 76. Objective Last 24 Hour Vital Signs Date Time Temp Pulse Resp B/P (MAP) Pulse Ox O2 Delivery O2 Flow Rate FiO2 10/07/18 21:15 76 137/56 10/07/18 20:00 100.6 76 20 137/56 (83) 93 10/07/18 19:57 85 18 99 Venturi Mask 8.0 40 10/07/18 19:47 Venturi Mask 10.0 45 10/07/18 19:47 88 18 97 Venturi Mask 10.0 45 10/07/18 19:47 97 Nasal Cannula 10.0 45 10/07/18 16:00 79 10/07/18 16:00 99.1 83 16 152/66 (94) 93 10/07/18 13:55 152/82 10/07/18 13:25 92 22 97 Venturi Mask 10.0 45 10/07/18 13:20 87 18 95 Venturi Mask 10.0 45 10/07/18 12:41 101 151/63 10/07/18 12:41 101 151/63 10/07/18 12:00 81 10/07/18 12:00 98.1 87 16 152/82 (105) 99 10/07/18 09:30 101 151/63 10/07/18 09:30 101 151/63 10/07/18 09:29 151/63 10/07/18 09:00 Nasal Cannula 3.0 10/07/18 08:40 99.3 101 16 151/63 (92) 92 10/07/18 08:00 98 10/07/18 07:29 Room Air 21 10/07/18 07:29 Room Air 21 10/07/18 07:28 89 21 10/07/18 07:28 Room Air 21 10/07/18 04:00 104 10/07/18 04:00 98.8 108 20 150/75 (100) 93 10/07/18 01:48 95 20 97 Venturi Mask 10.0 45 10/07/18 01:37 93 20 95 Venturi Mask 10.0 45 10/07/18 00:00 98.2 98 20 146/78 (100) 93 10/07/18 00:00 96 10/06/18 23:38 98 146/78 Intake and Output 10/06/18 10/07/18 18:59 06:59 Output Total 0 ml Balance 0 ml Output Stool Total 0 ml # Voids 1 2D Echo: EF55%, Mild LVH, YUDELKA, Mild MR/AR, RAP~15mmHg, RVSP 55mmHg, Grade II LVDD Laboratory Tests Test 10/07/18 05:30 10/07/18 13:15 White Blood Count 5.3 K/UL (4.8-10.8) Red Blood Count 2.93 M/UL (4.20-5.40) L Hemoglobin 9.0 G/DL (12.0-16.0) L Hematocrit 26.5 % (37.0-47.0) L Mean Corpuscular Volume 90 FL (80-99) Mean Corpuscular Hemoglobin 30.8 PG (27.0-31.0) Mean Corpuscular Hemoglobin Concent 34.0 G/DL (32.0-36.0) Red Cell Distribution Width 13.5 % (11.6-14.8) Platelet Count 192 K/UL (150-450) Mean Platelet Volume 6.6 FL (6.5-10.1) Neutrophils (%) (Auto) 83.3 % (45.0-75.0) H Lymphocytes (%) (Auto) 9.3 % (20.0-45.0) L Monocytes (%) (Auto) 6.3 % (1.0-10.0) Eosinophils (%) (Auto) 0.1 % (0.0-3.0) Basophils (%) (Auto) 1.0 % (0.0-2.0) Sodium Level 136 MMOL/L (136-145) Potassium Level 5.4 MMOL/L (3.5-5.1) H Chloride Level 98 MMOL/L (98-107) Carbon Dioxide Level 28 MMOL/L (21-32) Anion Gap 10 mmol/L (5-15) Blood Urea Nitrogen 67 mg/dL (7-18) H Creatinine 5.1 MG/DL (0.55-1.30) H Estimat Glomerular Filtration Rate 8.4 mL/min (>60) Glucose Level 233 MG/DL (74-106) H Hemoglobin A1c 10.2 % (4.3-6.0) H Uric Acid 6.4 MG/DL (2.6-7.2) Calcium Level 8.8 MG/DL (8.5-10.1) Phosphorus Level 5.2 MG/DL (2.5-4.9) H Magnesium Level 1.9 MG/DL (1.8-2.4) Iron Level 33 ug/dL (50-175) L Total Iron Binding Capacity 184 ug/dL (250-450) L Percent Iron Saturation 18 % (15-50) Unsaturated Iron Binding 151 ug/dL (112-346) Ferritin 1075 NG/ML (8-388) H Total Bilirubin 1.1 MG/DL (0.2-1.0) H Direct Bilirubin 0.2 MG/DL (0.0-0.3) Gamma Glutamyl Transpeptidase 48 U/L (5-85) Aspartate Amino Transf (AST/SGOT) 14 U/L (15-37) L Alanine Aminotransferase (ALT/SGPT) 15 U/L (12-78) Alkaline Phosphatase 151 U/L (46-116) H Total Creatine Kinase 475 U/L (26-308) H Troponin I 0.411 ng/mL (0.000-0.056) Pro-B-Type Natriuretic Peptide > 64566 pg/mL (0-125) H Total Protein 8.4 G/DL (6.4-8.2) H Albumin 3.4 G/DL (3.4-5.0) Globulin 5.0 g/dL Albumin/Globulin Ratio 0.7 (1.0-2.7) L Triglycerides Level 173 MG/DL (30-150) H Cholesterol Level 155 MG/DL (< 200) LDL Cholesterol 76 mg/dL (<100) HDL Cholesterol 47 MG/DL (40-60) Cholesterol/HDL Ratio 3.3 (3.3-4.4) Vitamin B12 Level 543 PG/ML (193-986) Folate 10.9 NG/ML (8.6-58.9) Thyroid Stimulating Hormone (TSH) 0.718 uiU/mL (0.358-3.740) Arterial Blood pH 7.413 (7.350-7.450) Arterial Blood Partial Pressure CO2 43.6 mmHg (35.0-45.0) Arterial Blood Partial Pressure O2 86.5 mmHg (75.0-100.0) Arterial Blood HCO3 27.2 mmol/L (22.0-26.0) H Arterial Blood Oxygen Saturation 95.6 % (95-100) Arterial Blood Base Excess 2.3 (-2-2) H Faheem Test Positive Microbiology Date/Time Source Procedure Growth Status 10/06/18 08:37 Nasal Nares Influenza Types A,B Antigen (SUSIE) - Final Complete Objective HEENT: Atraumatic and normocephalic. Anicteric. Pupils are equal, round, and reactive to light and accommodation. Extraocular muscles intact. NECK: JVP less than 5 cm. No carotid bruit. Carotid upstrokes 2+ bilaterally. CARDIOVASCULAR: Normal S1, S2. Regular rate and rhythm. No murmurs, gallops, or rubs. PMI is at fourth intercostal space in the midclavicular line. LUNGS: Clear to auscultation bilaterally. ABDOMEN: Soft, nontender, and nondistended. No hepatosplenomegaly. Positive bowel sounds. EXTREMITIES: No evidence of edema, clubbing, or cyanosis. Zev Alfonso MD Oct 07, 2018 23:35
[2018-10-08] VITALS: BP 139/71
[2018-10-08] MEDS: Albuterol/Ipratropium 3ml neb HHN SCH ×4 (01:07→21:24)
[2018-10-08 04:00] VITALS: BP 137/72
[2018-10-08] MEDS: NovoLOG Insulin Flexpen SUBQ SCH ×8 (06:09→21:51)
--- NOTE | 2018-10-08 06:28 | General Progress Note ---
Assessment/Plan Problem List: (1) Diabetic nephropathy with proteinuria ICD Codes: E11.21 - Type 2 diabetes mellitus with diabetic nephropathy SNOMED: 72694151, 397673139 (2) ESRD (end stage renal disease) ICD Codes: N18.6 - End stage renal disease SNOMED: 89162927 (3) Hyperkalemia, diminished renal excretion ICD Codes: E87.5 - Hyperkalemia SNOMED: 71354757 Assessment/Plan reduce Levemir to 10 units bid continue Novolog 5 units ac tid + NISS continue Levothyroxine 50 mcg daily Subjective Allergies: Coded Allergies: No Known Allergies (Unverified , 05/12/17) All Systems: reviewed and negative except above Subjective events noted glycemic control improved Levemir was held yesterday pm Item Value Date Time Bedside Blood Glucose 245 mg/dl H 10/07/18 0542 Bedside Blood Glucose 452 mg/dl H 10/06/18 2119 Bedside Blood Glucose 308 mg/dl H 10/06/18 1002 Bedside Blood Glucose 131 mg/dl H 10/08/18 0610 Bedside Blood Glucose 166 mg/dl H 10/07/18 2221 Bedside Blood Glucose 91 mg/dl 10/07/18 1800 Bedside Blood Glucose 181 mg/dl H 10/07/18 1158 Bedside Blood Glucose 173 mg/dl H 10/07/18 1018 Bedside Blood Glucose 245 mg/dl H 10/07/18 0625 Objective Last 24 Hour Vital Signs Date Time Temp Pulse Resp B/P (MAP) Pulse Ox O2 Delivery O2 Flow Rate FiO2 10/08/18 04:00 98.2 66 20 137/72 (93) 99 10/08/18 03:51 71 10/08/18 01:17 70 18 98 Venturi Mask 8.0 40 10/08/18 01:07 70 18 97 Venturi Mask 8.0 40 10/08/18 00:04 68 10/08/18 00:00 98.4 76 20 139/71 (93) 99 10/07/18 21:15 76 137/56 10/07/18 21:00 Room Air 10/07/18 20:00 100.6 76 20 137/56 (83) 93 10/07/18 19:57 85 18 99 Venturi Mask 8.0 40 10/07/18 19:47 Venturi Mask 10.0 45 10/07/18 19:47 88 18 97 Venturi Mask 10.0 45 10/07/18 19:47 97 Nasal Cannula 10.0 45 10/07/18 19:03 80 10/07/18 16:00 79 10/07/18 16:00 99.1 83 16 152/66 (94) 93 10/07/18 13:55 152/82 10/07/18 13:25 92 22 97 Venturi Mask 10.0 45 10/07/18 13:20 87 18 95 Venturi Mask 10.0 45 10/07/18 12:41 101 151/63 10/07/18 12:41 101 151/63 10/07/18 12:00 81 10/07/18 12:00 98.1 87 16 152/82 (105) 99 10/07/18 09:30 101 151/63 10/07/18 09:30 101 151/63 10/07/18 09:29 151/63 10/07/18 09:00 Nasal Cannula 3.0 10/07/18 08:40 99.3 101 16 151/63 (92) 92 10/07/18 08:00 98 10/07/18 07:29 Room Air 21 10/07/18 07:29 Room Air 21 10/07/18 07:28 89 21 10/07/18 07:28 Room Air 21 Intake and Output 10/07/18 10/08/18 19:00 07:00 Intake Total 360 ml Balance 360 ml Intake Oral 360 ml # Voids 1 Laboratory Tests 10/07/18 13:15: Arterial Blood pH 7.413, Arterial Blood Partial Pressure CO2 43.6, Arterial Blood Partial Pressure O2 86.5, Arterial Blood HCO3 27.2H, Arterial Blood Oxygen Saturation 95.6, Arterial Blood Base Excess 2.3H, Faheem Test Positive Height (Feet): 5 Height (Inches): 1.00 Weight (Pounds): 167 General Appearance: no apparent distress Neck: normal alignment Cardiovascular: regular rhythm Respiratory/Chest: lungs clear Abdomen: normal bowel sounds Objective Current Medications Medications (Trade) Dose Ordered Sig/Toya Route PRN Reason Start Time Stop Time Status Last Admin Dose Admin Acetaminophen (Tylenol) 500 mg Q6H PRN ORAL Prn Headache/Temp > 101 10/06/18 17:00 11/05/18 16:44 Albuterol/ Ipratropium (Albuterol/ Ipratropium) 3 ml Q4H PRN HHN Shortness of Breath 10/06/18 17:15 10/11/18 17:14 10/06/18 17:24 Albuterol/ Ipratropium (Albuterol/ Ipratropium) 3 ml Q6HRT HHN 10/06/18 19:00 10/11/18 18:59 10/08/18 01:07 Aspirin (ASA) 81 mg DAILY ORAL 10/07/18 09:00 11/06/18 08:59 10/07/18 09:30 Atorvastatin Calcium (Lipitor) 40 mg BEDTIME ORAL 10/06/18 21:00 11/05/18 20:59 10/07/18 21:15 Dextrose (Dextrose 50%) 25 ml Q30M PRN IV Hypoglycemia 10/06/18 19:45 11/05/18 19:44 Dextrose (Dextrose 50%) 50 ml Q30M PRN IV Hypoglycemia 10/06/18 19:45 11/05/18 19:44 Docusate Sodium (Colace) 100 mg TID ORAL 10/06/18 18:00 11/05/18 17:59 10/07/18 17:04 Epoetin Panchito (Epoetin Panchito(ESRD on dialysis)) 10,000 unit THU-THU-THU SUBQ 10/08/18 21:00 11/07/18 20:59 Folic Acid (Folate) 1 mg DAILY ORAL 10/07/18 09:00 11/06/18 08:59 10/07/18 09:30 Gabapentin (Neurontin) 100 mg THREE TIMES A DAY ORAL 10/06/18 18:00 11/05/18 17:59 10/07/18 17:03 Gabapentin (Neurontin) 300 mg BEDTIME ORAL 10/06/18 21:00 11/05/18 20:59 10/07/18 21:15 Heparin Sodium (Porcine) (Heparin 5000 units/ml) 5,000 units EVERY 12 HOURS SUBQ 10/07/18 21:00 11/06/18 20:59 10/07/18 21:17 Hydralazine HCl (Apresoline) 25 mg Q6H PRN ORAL SBP > 160mmHg 10/06/18 15:30 11/05/18 15:29 Insulin Aspart (NovoLOG) BEFORE MEALS AND HS SUBQ 10/06/18 21:00 11/05/18 20:59 10/08/18 06:09 Insulin Aspart (NovoLOG) 5 units BEFORE MEALS SUBQ 10/07/18 06:30 11/06/18 06:29 10/08/18 06:10 Insulin Detemir (Levemir) 15 units BID SUBQ 10/06/18 20:00 11/05/18 19:59 10/07/18 10:18 Isosorbide Mononitrate (Imdur) 30 mg DAILY ORAL 10/08/18 09:00 11/07/18 08:59 Levothyroxine Sodium (Synthroid) 50 mcg ACBREAKFAST ORAL 10/07/18 06:30 11/06/18 06:29 10/08/18 06:07 Lisinopril (Prinivil) 20 mg DAILY ORAL 10/07/18 09:00 11/06/18 08:59 10/07/18 09:29 Metoprolol Tartrate (Lopressor) 100 mg EVERY 12 HOURS ORAL 10/07/18 21:00 11/05/18 20:59 10/07/18 21:15 Nifedipine (Procardia XL) 60 mg DAILY ORAL 10/08/18 09:00 11/06/18 08:59 Ondansetron HCl (Zofran) 4 mg Q6H PRN ORAL Nausea & Vomiting 10/06/18 16:45 11/05/18 16:44 10/07/18 14:14 Pantoprazole (Protonix) 40 mg DAILY ORAL 10/06/18 17:00 11/05/18 16:59 10/07/18 09:29 Sennosides (Senokot) 8.6 mg DAILY ORAL 10/07/18 09:00 11/06/18 08:59 10/07/18 09:29 Tramadol HCl (Ultram) 50 mg Q6H PRN ORAL For Pain 10/06/18 16:45 10/13/18 16:44 Lavell Archer MD Oct 08, 2018 06:28
[2018-10-08 07:12] LABS: BASOPHILS % (AUTO) 1.8 % (0.0-2.0); EOSINOPHILS % (AUTO) 3.8 % (0.0-3.0); HEMOGLOBIN 8.2 G/DL (12.0-16.0); LYMPHOCYTES % (AUTO) 24.8 % (20.0-45.0); MEAN CORPUSCULAR VOLUME 93 FL (80-99); MONOCYTES % (AUTO) 10.7 % (1.0-10.0); PLATELET COUNT 222 K/UL (150-450); RED BLOOD COUNT 2.69 M/UL (4.20-5.40); RED CELL DISTRIBUTION WIDTH 13.9 % (11.6-14.8); WHITE BLOOD COUNT 3.8 K/UL (4.8-10.8)
[2018-10-08 07:43] LABS: ALANINE AMINOTRANSFERASE 12 U/L (12-78); ALBUMIN/GLOBULIN RATIO 0.7 (1.0-2.7); ALKALINE PHOSPHATASE 124 U/L (46-116); ANION GAP 14 mmol/L (5-15); ASPARTATE AMINO TRANSFERASE 24 U/L (15-37); BILIRUBIN,TOTAL 0.7 MG/DL (0.2-1.0); BLOOD UREA NITROGEN 88 mg/dL (7-18); CALCIUM 8.1 MG/DL (8.5-10.1); CARBON DIOXIDE 26 MMOL/L (21-32); CHLORIDE 100 MMOL/L (98-107); CREATININE 6.6 MG/DL (0.55-1.30); PHOSPHORUS 6.5 MG/DL (2.5-4.9); POTASSIUM 4.1 MMOL/L (3.5-5.1); SODIUM 140 MMOL/L (136-145)
[2018-10-08 08:00] VITALS: BP 136/60
[2018-10-08] MEDS ORDERED: Imdur 30mg tab ORAL SCH ×2 (09:00→13:30)
[2018-10-08] MEDS: Sennosides 8.6mg tab ORAL SCH (09:01)
[2018-10-08] MEDS: Aspirin Baby 81mg ORAL SCH (09:02)
[2018-10-08] MEDS: Docusate 100mg cap ORAL SCH ×3 (09:02→17:26)
[2018-10-08] MEDS: Lisinopril 20mg tab ORAL SCH (09:02)
[2018-10-08] MEDS: Heparin 5000 units/ml inj SUBQ SCH ×2 (09:07→21:40)
[2018-10-08] MEDS: Levemir Flexpen SUBQ SCH ×2 (09:18→21:41)
[2018-10-08 12:00] VITALS: BP 131/51
--- NOTE | 2018-10-08 13:26 | Nephrology Progress Note ---
Assessment/Plan Problem List: (1) ESRD (end stage renal disease) (2) Hyperkalemia, diminished renal excretion (3) ACS (acute coronary syndrome) (4) Hypertensive kidney disease Assessment - Hyperkalemia missed dialysis / - Volume overload - ESRD (end stage renal disease) missed HD 3/4 - Hypertensive kidney disease - h/o CAD - Diabetic nephropathy with proteinuria - h/o Anemia , low B12 and low Iron - h/o Dizziness and unsteady gait Plan Plan Renal diet- HTN, meds adjusted Reglan PO HD 10/06 and UF, next 10/08 gastric support Subjective ROS Limited/Unobtainable: No Objective Objective Last 24 Hour Vital Signs Date Time Temp Pulse Resp B/P (MAP) Pulse Ox O2 Delivery O2 Flow Rate FiO2 10/08/18 12:00 98.4 69 18 131/51 (77) 97 10/08/18 09:02 136/60 10/08/18 09:02 82 136/60 10/08/18 09:02 136/60 10/08/18 09:01 82 136/60 10/08/18 09:00 Room Air 10/08/18 08:00 75 10/08/18 08:00 99.1 82 18 136/60 (85) 97 10/08/18 07:38 80 18 95 Venturi Mask 8.0 40 10/08/18 07:38 80 18 95 Venturi Mask 8.0 40 10/08/18 07:36 95 Nasal Cannula 10.0 45 10/08/18 07:36 Venturi Mask 10.0 45 10/08/18 04:00 98.2 66 20 137/72 (93) 99 10/08/18 03:51 71 10/08/18 01:17 70 18 98 Venturi Mask 8.0 40 10/08/18 01:07 70 18 97 Venturi Mask 8.0 40 10/08/18 00:04 68 10/08/18 00:00 98.4 76 20 139/71 (93) 99 10/07/18 21:15 76 137/56 10/07/18 21:00 Room Air 10/07/18 20:00 100.6 76 20 137/56 (83) 93 10/07/18 19:57 85 18 99 Venturi Mask 8.0 40 10/07/18 19:47 Venturi Mask 10.0 45 10/07/18 19:47 88 18 97 Venturi Mask 10.0 45 10/07/18 19:47 97 Nasal Cannula 10.0 45 10/07/18 19:03 80 10/07/18 16:00 79 10/07/18 16:00 99.1 83 16 152/66 (94) 93 10/07/18 13:55 152/82 Intake and Output 10/07/18 10/08/18 19:00 07:00 Intake Total 360 ml Balance 360 ml Intake Oral 360 ml # Voids 1 Laboratory Tests 10/08/18 05:05: White Blood Count 3.8L, Red Blood Count 2.69L, Hemoglobin 8.2L, Hematocrit 25.0L , Mean Corpuscular Volume 93, Mean Corpuscular Hemoglobin 30.6, Mean Corpuscular Hemoglobin Concent 33.0, Red Cell Distribution Width 13.9, Platelet Count 222, Mean Platelet Volume 6.6, Neutrophils (%) (Auto) 59.0, Lymphocytes (% ) (Auto) 24.8, Monocytes (%) (Auto) 10.7H, Eosinophils (%) (Auto) 3.8H, Basophils (%) (Auto) 1.8, Sodium Level 140, Potassium Level 4.1, Chloride Level 100, Carbon Dioxide Level 26, Anion Gap 14, Blood Urea Nitrogen 88H, Creatinine 6.6H, Estimat Glomerular Filtration Rate 6.2, Glucose Level 109#H, Uric Acid 8.0H, Calcium Level 8.1L, Phosphorus Level 6.5H, Magnesium Level 1.9, Total Bilirubin 0.7, Aspartate Amino Transf (AST/SGOT) 24, Alanine Aminotransferase ( ALT/SGPT) 12, Alkaline Phosphatase 124H, Troponin I 0.504H, C-Reactive Protein, Quantitative 43.3H, Pro-B-Type Natriuretic Peptide > 64706D, Total Protein 7.5, Albumin 3.0L, Globulin 4.5, Albumin/Globulin Ratio 0.7L Height (Feet): 5 Height (Inches): 1.00 Weight (Pounds): 167 General Appearance: no apparent distress Cardiovascular: normal rate Respiratory/Chest: decreased breath sounds Abdomen: soft Francis Falk MD Oct 08, 2018 13:26
--- NOTE | 2018-10-08 15:56 | Pulmonology Progress Note ---
Assessment/Plan Assessment/Plan ASSESSMENT: The patient is a 68-year-old female presenting with shortness of breath in the setting of decompensated heart failure and missed dialysis. PROBLEM LIST: 1. Shortness of breath in the setting of volume overload and missed dialysis. 2. End-stage renal disease on dialysis presenting with missed dialysis. 3. Hyperkalemia secondary to above. 4. Bilateral pulmonary airspace opacities noted on chest x-ray, likely edema. 5. Diabetes, hypertension, hyperlipidemia, GERD. 6. Obesity. 7. CHF with DD 8. Moderate (1.4 cm2) TREATMENT PLAN: 1. Optimize pulmonary hygiene/mobilize as tolerated. 2. Titrate down FiO2 to keep saturations greater than 90%. 3. Monitor volumes and renal function. Dialysis per Renal with UF as able. 4. CT-A given persistent hypoxemia after HD 5. F/U cardiology recs 6. DVT prophylaxis: Hep SQ 7. The patient should have a sleep study as an outpatient. 8. Weight loss, diet, and exercise discussed. Subjective Allergies: Coded Allergies: No Known Allergies (Unverified , 05/12/17) Subjective AFVSS - 2L HD still on VM No cough + SOB no PND no orthopnea no CP no FC Objective Last 24 Hour Vital Signs Date Time Temp Pulse Resp B/P (MAP) Pulse Ox O2 Delivery O2 Flow Rate FiO2 10/08/18 14:27 140/61 10/08/18 13:37 80 18 95 Venturi Mask 8.0 40 10/08/18 13:37 80 18 95 Venturi Mask 8.0 40 10/08/18 12:00 98.4 69 18 131/51 (77) 97 10/08/18 12:00 81 10/08/18 09:02 136/60 10/08/18 09:02 82 136/60 10/08/18 09:02 136/60 10/08/18 09:01 82 136/60 10/08/18 09:00 Room Air 10/08/18 08:00 75 10/08/18 08:00 99.1 82 18 136/60 (85) 97 10/08/18 07:38 80 18 95 Venturi Mask 8.0 40 10/08/18 07:38 80 18 95 Venturi Mask 8.0 40 10/08/18 07:36 95 Nasal Cannula 10.0 45 10/08/18 07:36 Venturi Mask 10.0 45 10/08/18 04:00 98.2 66 20 137/72 (93) 99 10/08/18 03:51 71 10/08/18 01:17 70 18 98 Venturi Mask 8.0 40 10/08/18 01:07 70 18 97 Venturi Mask 8.0 40 10/08/18 00:04 68 10/08/18 00:00 98.4 76 20 139/71 (93) 99 10/07/18 21:15 76 137/56 10/07/18 21:00 Room Air 10/07/18 20:00 100.6 76 20 137/56 (83) 93 10/07/18 19:57 85 18 99 Venturi Mask 8.0 40 10/07/18 19:47 Venturi Mask 10.0 45 10/07/18 19:47 88 18 97 Venturi Mask 10.0 45 10/07/18 19:47 97 Nasal Cannula 10.0 45 10/07/18 19:03 80 10/07/18 16:00 79 10/07/18 16:00 99.1 83 16 152/66 (94) 93 Intake and Output 10/07/18 10/08/18 19:00 07:00 Intake Total 360 ml Balance 360 ml Intake Oral 360 ml # Voids 1 General Appearance: WD/WN, no acute distress, other - obese female HEENT: normocephalic, atraumatic, anicteric, mucous membranes moist Respiratory/Chest: chest wall non-tender, lungs clear, normal breath sounds, no respiratory distress, no accessory muscle use Cardiovascular: normal peripheral pulses, normal rate, regular rhythm Abdomen: normal bowel sounds, soft, non tender, no organomegaly, non distended , no mass Extremities: no cyanosis, no clubbing, no edema Microbiology Date/Time Source Procedure Growth Status 10/06/18 08:37 Blood Blood Culture - Preliminary NO GROWTH AFTER 24 HOURS Resulted 10/06/18 08:37 Blood Blood Culture - Preliminary NO GROWTH AFTER 24 HOURS Resulted 10/06/18 10:47 Nasal Nares MRSA Culture - Final NO METHICILLIN RESISTANT STAPH AUREUS... Complete 10/06/18 08:37 Nasal Nares Influenza Types A,B Antigen (SUSIE) - Final Complete Laboratory Tests 10/08/18 05:05: White Blood Count 3.8L, Red Blood Count 2.69L, Hemoglobin 8.2L, Hematocrit 25.0L , Mean Corpuscular Volume 93, Mean Corpuscular Hemoglobin 30.6, Mean Corpuscular Hemoglobin Concent 33.0, Red Cell Distribution Width 13.9, Platelet Count 222, Mean Platelet Volume 6.6, Neutrophils (%) (Auto) 59.0, Lymphocytes (% ) (Auto) 24.8, Monocytes (%) (Auto) 10.7H, Eosinophils (%) (Auto) 3.8H, Basophils (%) (Auto) 1.8, Sodium Level 140, Potassium Level 4.1, Chloride Level 100, Carbon Dioxide Level 26, Anion Gap 14, Blood Urea Nitrogen 88H, Creatinine 6.6H, Estimat Glomerular Filtration Rate 6.2, Glucose Level 109#H, Uric Acid 8.0H, Calcium Level 8.1L, Phosphorus Level 6.5H, Magnesium Level 1.9, Total Bilirubin 0.7, Aspartate Amino Transf (AST/SGOT) 24, Alanine Aminotransferase ( ALT/SGPT) 12, Alkaline Phosphatase 124H, Troponin I 0.504H, C-Reactive Protein, Quantitative 43.3H, Pro-B-Type Natriuretic Peptide > 65419W, Total Protein 7.5, Albumin 3.0L, Globulin 4.5, Albumin/Globulin Ratio 0.7L Current Medications Medications (Trade) Dose Ordered Sig/Toya Route PRN Reason Start Time Stop Time Status Last Admin Dose Admin Acetaminophen (Tylenol) 500 mg Q6H PRN ORAL Prn Headache/Temp > 101 10/06/18 17:00 11/05/18 16:44 Albuterol/ Ipratropium (Albuterol/ Ipratropium) 3 ml Q4H PRN HHN Shortness of Breath 10/06/18 17:15 10/11/18 17:14 10/06/18 17:24 Albuterol/ Ipratropium (Albuterol/ Ipratropium) 3 ml Q6HRT HHN 10/06/18 19:00 10/11/18 18:59 10/08/18 01:07 Aspirin (ASA) 81 mg DAILY ORAL 10/07/18 09:00 11/06/18 08:59 10/08/18 09:02 Atorvastatin Calcium (Lipitor) 40 mg BEDTIME ORAL 10/06/18 21:00 11/05/18 20:59 10/07/18 21:15 Dextrose (Dextrose 50%) 25 ml Q30M PRN IV Hypoglycemia 10/06/18 19:45 11/05/18 19:44 Dextrose (Dextrose 50%) 50 ml Q30M PRN IV Hypoglycemia 10/06/18 19:45 11/05/18 19:44 Docusate Sodium (Colace) 100 mg TID ORAL 10/06/18 18:00 11/05/18 17:59 10/08/18 09:02 Epoetin Panchito (Epoetin Panchito(ESRD on dialysis)) 10,000 unit THU-THU-THU SUBQ 10/08/18 21:00 11/07/18 20:59 Folic Acid (Folate) 1 mg DAILY ORAL 10/07/18 09:00 11/06/18 08:59 10/08/18 09:02 Gabapentin (Neurontin) 100 mg THREE TIMES A DAY ORAL 10/06/18 18:00 11/05/18 17:59 10/08/18 09:02 Gabapentin (Neurontin) 300 mg BEDTIME ORAL 10/06/18 21:00 11/05/18 20:59 10/07/18 21:15 Heparin Sodium (Porcine) (Heparin 5000 units/ml) 5,000 units EVERY 12 HOURS SUBQ 10/07/18 21:00 11/06/18 20:59 10/08/18 09:07 Hydralazine HCl (Apresoline) 25 mg Q6H PRN ORAL SBP > 160mmHg 10/06/18 15:30 11/05/18 15:29 Insulin Aspart (NovoLOG) BEFORE MEALS AND HS SUBQ 10/06/18 21:00 11/05/18 20:59 10/08/18 11:38 Insulin Aspart (NovoLOG) 5 units BEFORE MEALS SUBQ 10/07/18 06:30 11/06/18 06:29 10/08/18 11:37 Insulin Detemir (Levemir) 10 units Q12HR SUBQ 10/08/18 09:00 11/07/18 08:59 10/08/18 09:18 Isosorbide Mononitrate (Imdur) 30 mg DAILY ORAL 10/09/18 09:00 11/08/18 08:59 Levothyroxine Sodium (Synthroid) 50 mcg ACBREAKFAST ORAL 10/07/18 06:30 11/06/18 06:29 10/08/18 06:07 Lisinopril (Prinivil) 20 mg DAILY ORAL 10/07/18 09:00 11/06/18 08:59 10/08/18 09:02 Metoprolol Tartrate (Lopressor) 100 mg EVERY 12 HOURS ORAL 10/07/18 21:00 11/05/18 20:59 10/08/18 09:02 Nifedipine (Procardia XL) 60 mg DAILY ORAL 10/08/18 09:00 11/06/18 08:59 10/08/18 09:01 Ondansetron HCl (Zofran) 4 mg Q6H PRN ORAL Nausea & Vomiting 10/06/18 16:45 11/05/18 16:44 10/07/18 14:14 Pantoprazole (Protonix) 40 mg DAILY ORAL 10/06/18 17:00 11/05/18 16:59 10/08/18 09:01 Sennosides (Senokot) 8.6 mg DAILY ORAL 10/07/18 09:00 11/06/18 08:59 10/08/18 09:01 Sevelamer Carbonate (Renvela) 1,600 mg THREE TIMES A DAY ORAL 10/08/18 13:00 11/07/18 12:59 Tramadol HCl (Ultram) 50 mg Q6H PRN ORAL For Pain 10/06/18 16:45 10/13/18 16:44 Mauri Mabry MD Oct 08, 2018 15:56
[2018-10-08 16:00] VITALS: BP 117/45
[2018-10-08] MEDS ORDERED: Isovue-370 150ml vial INJ PRN (16:00)
--- NOTE | 2018-10-08 17:34 | Diagnostic Imaging Report ---
EXAM: CT Chest With Intravenous Contrast CLINICAL HISTORY: PE TECHNIQUE: Axial computed tomography images of the chest with intravenous contrast. CTDI is 0.17+12.6 to +12.6 to +30.77 mGy and DLP is 1083 mGy-cm. One or more of the following dose reduction techniques were used: automated exposure control, adjustment of the mA and/or kV according to patient size, use of iterative reconstruction technique. MIP reconstructed images were created and reviewed. COMPARISON: No relevant prior studies available. FINDINGS: Lungs: No central pulmonary embolus. Patchy bilateral groundglass opacities. Mild spiculation in the left lung base. Pleural space: Unremarkable. No pneumothorax. No effusion. Heart: Cardiomegaly. Bones/joints: No acute fracture. Soft tissues: Unremarkable. Vasculature: See below. Lymph nodes: No enlarged lymph nodes. Kidneys and ureters: Renal vascular calcifications and/or small stones. Stomach and bowel: Duodenal diverticulum. IMPRESSION: 1. No central pulmonary embolus. 2. Patchy bilateral groundglass opacities.
[2018-10-08 20:00] VITALS: BP 147/61
[2018-10-08] MEDS ORDERED: Epoetin Alfa(ESRD on dialysis)10,000 unit/ml vial SUBQ SCH (21:00)
--- NOTE | 2018-10-08 21:02 | General Progress Note ---
Assessment/Plan Problem List: (1) Diabetic nephropathy with proteinuria ICD Codes: E11.21 - Type 2 diabetes mellitus with diabetic nephropathy SNOMED: 91712682, 847266047 (2) Dyspnea ICD Codes: R06.00 - Dyspnea, unspecified SNOMED: 085303315 Qualifiers: Qualified Codes: R06.00 - Dyspnea, unspecified (3) ESRD (end stage renal disease) ICD Codes: N18.6 - End stage renal disease SNOMED: 04343517 (4) Hyperkalemia, diminished renal excretion ICD Codes: E87.5 - Hyperkalemia SNOMED: 44176331 (5) Hypertensive kidney disease ICD Codes: I12.9 - Hypertensive chronic kidney disease with stage 1 through stage 4 chronic kidney disease, or unspecified chronic kidney disease SNOMED: 87742416 (6) ACS (acute coronary syndrome) ICD Codes: I24.9 - Acute ischemic heart disease, unspecified SNOMED: 352815351 (7) Pneumonia ICD Codes: J18.9 - Pneumonia, unspecified organism SNOMED: 910867178 Status: progressing Assessment/Plan chest pain r/o acs esrd 0n hd asthma still sob lyte anormality improved esrd on hd htn bp improving pulm edema Subjective HEENT: Reports: no symptoms Respiratory: Reports: shortness of breath Allergies: Coded Allergies: No Known Allergies (Unverified , 05/12/17) Objective Last 24 Hour Vital Signs Date Time Temp Pulse Resp B/P (MAP) Pulse Ox O2 Delivery O2 Flow Rate FiO2 10/08/18 16:01 67 10/08/18 16:00 97.7 67 18 117/45 (69) 98 10/08/18 14:27 140/61 10/08/18 13:37 80 18 95 Venturi Mask 8.0 40 10/08/18 13:37 80 18 95 Venturi Mask 8.0 40 10/08/18 12:00 98.4 69 18 131/51 (77) 97 10/08/18 12:00 81 10/08/18 09:02 136/60 10/08/18 09:02 82 136/60 10/08/18 09:02 136/60 10/08/18 09:01 82 136/60 10/08/18 09:00 Room Air 10/08/18 08:00 75 10/08/18 08:00 99.1 82 18 136/60 (85) 97 10/08/18 07:38 80 18 95 Venturi Mask 8.0 40 10/08/18 07:38 80 18 95 Venturi Mask 8.0 40 10/08/18 07:36 95 Nasal Cannula 10.0 45 10/08/18 07:36 Venturi Mask 10.0 45 10/08/18 04:00 98.2 66 20 137/72 (93) 99 10/08/18 03:51 71 10/08/18 01:17 70 18 98 Venturi Mask 8.0 40 10/08/18 01:07 70 18 97 Venturi Mask 8.0 40 10/08/18 00:04 68 10/08/18 00:00 98.4 76 20 139/71 (93) 99 10/07/18 21:15 76 137/56 Intake and Output 10/07/18 10/08/18 18:59 06:59 Intake Total 360 ml Balance 360 ml Intake Oral 360 ml # Voids 1 Laboratory Tests 10/08/18 05:05: White Blood Count 3.8L, Red Blood Count 2.69L, Hemoglobin 8.2L, Hematocrit 25.0L , Mean Corpuscular Volume 93, Mean Corpuscular Hemoglobin 30.6, Mean Corpuscular Hemoglobin Concent 33.0, Red Cell Distribution Width 13.9, Platelet Count 222, Mean Platelet Volume 6.6, Neutrophils (%) (Auto) 59.0, Lymphocytes (% ) (Auto) 24.8, Monocytes (%) (Auto) 10.7H, Eosinophils (%) (Auto) 3.8H, Basophils (%) (Auto) 1.8, Sodium Level 140, Potassium Level 4.1, Chloride Level 100, Carbon Dioxide Level 26, Anion Gap 14, Blood Urea Nitrogen 88H, Creatinine 6.6H, Estimat Glomerular Filtration Rate 6.2, Glucose Level 109#H, Uric Acid 8.0H, Calcium Level 8.1L, Phosphorus Level 6.5H, Magnesium Level 1.9, Total Bilirubin 0.7, Aspartate Amino Transf (AST/SGOT) 24, Alanine Aminotransferase ( ALT/SGPT) 12, Alkaline Phosphatase 124H, Troponin I 0.504H, C-Reactive Protein, Quantitative 43.3H, Pro-B-Type Natriuretic Peptide > 99764B, Total Protein 7.5, Albumin 3.0L, Globulin 4.5, Albumin/Globulin Ratio 0.7L Height (Feet): 5 Height (Inches): 1.00 Weight (Pounds): 167 Neck: supple Cardiovascular: normal rate Respiratory/Chest: lungs clear Abdomen: soft Makenna Daniel MD Oct 08, 2018 21:02
[2018-10-08] MEDS: Atorvastatin 80mg tab ORAL SCH (21:38)
--- NOTE | 2018-10-08 23:26 | Consultation ---
Zev Alfonso MD Oct 08, 2018 23:26
[2018-10-09] VITALS: BP 149/62
[2018-10-09] MEDS: Albuterol/Ipratropium 3ml neb HHN SCH ×4 (01:00→19:51)
[2018-10-09 04:00] VITALS: BP 121/65
[2018-10-09] MEDS: NovoLOG Insulin Flexpen SUBQ SCH ×8 (06:24→21:15)
[2018-10-09 07:37] LABS: HEMATOCRIT 24.5 % (37.0-47.0); HEMOGLOBIN 8.2 G/DL (12.0-16.0); MEAN CORPUSCULAR VOLUME 92 FL (80-99); PLATELET COUNT 234 K/UL (150-450); RED BLOOD COUNT 2.67 M/UL (4.20-5.40); RED CELL DISTRIBUTION WIDTH 13.7 % (11.6-14.8); WHITE BLOOD COUNT 3.3 K/UL (4.8-10.8)
[2018-10-09 08:00] VITALS: BP 146/63
[2018-10-09 08:26] LABS: ALANINE AMINOTRANSFERASE 15 U/L (12-78); ALBUMIN 3.1 G/DL (3.4-5.0); ALBUMIN/GLOBULIN RATIO 0.8 (1.0-2.7); ALKALINE PHOSPHATASE 142 U/L (46-116); ANION GAP 13 mmol/L (5-15); ASPARTATE AMINO TRANSFERASE 26 U/L (15-37); BILIRUBIN,TOTAL 0.5 MG/DL (0.2-1.0); BLOOD UREA NITROGEN 68 mg/dL (7-18); CARBON DIOXIDE 26 MMOL/L (21-32); CHLORIDE 96 MMOL/L (98-107); CREATININE 5.7 MG/DL (0.55-1.30); PHOSPHORUS 6.4 MG/DL (2.5-4.9); POTASSIUM 4.8 MMOL/L (3.5-5.1); SODIUM 135 MMOL/L (136-145)
[2018-10-09] MEDS: Sennosides 8.6mg tab ORAL SCH (09:07)
[2018-10-09] MEDS: Imdur 30mg tab ORAL SCH (09:07)
[2018-10-09] MEDS: Aspirin Baby 81mg ORAL SCH (09:07)
[2018-10-09] MEDS: Docusate 100mg cap ORAL SCH ×3 (09:08→17:19)
[2018-10-09] MEDS: Levemir Flexpen SUBQ SCH ×2 (09:09→21:08)
[2018-10-09] MEDS: Heparin 5000 units/ml inj SUBQ SCH ×2 (09:09→21:04)
[2018-10-09] MEDS: Lisinopril 20mg tab ORAL SCH (09:10)
[2018-10-09 12:00] VITALS: BP 141/58
--- NOTE | 2018-10-09 13:10 | Nephrology Progress Note ---
Assessment/Plan Problem List: (1) ESRD (end stage renal disease) (2) Hyperkalemia, diminished renal excretion (3) ACS (acute coronary syndrome) (4) Hypertensive kidney disease Assessment - Hyperkalemia missed dialysis 3/ - Volume overload - ESRD (end stage renal disease) missed HD 3/4 - Hypertensive kidney disease - h/o CAD - Diabetic nephropathy with proteinuria - h/o Anemia , low B12 and low Iron - h/o Dizziness and unsteady gait Plan Plan Renal diet- repeat CXR HTN, meds adjusted Reglan PO HD next 10/10 gastric support Subjective ROS Limited/Unobtainable: No Constitutional: Reports: malaise Objective Objective Last 24 Hour Vital Signs Date Time Temp Pulse Resp B/P (MAP) Pulse Ox O2 Delivery O2 Flow Rate FiO2 10/09/18 12:22 97.3 10/09/18 12:00 97.3 69 16 141/58 (85) 97 10/09/18 09:10 146/63 10/09/18 09:07 146/63 10/09/18 09:07 77 146/63 10/09/18 09:06 77 146/63 10/09/18 09:00 Room Air 10/09/18 08:50 77 18 99 Nasal Cannula 3.0 32 10/09/18 08:33 79 18 97 Room Air 21 10/09/18 08:33 Room Air 21 10/09/18 08:33 97 Room Air 21 10/09/18 08:00 97.3 72 16 146/63 (90) 100 10/09/18 08:00 67 10/09/18 04:00 97.8 68 19 121/65 (83) 99 10/09/18 04:00 69 10/09/18 02:00 Nasal Cannula 3.0 32 10/09/18 02:00 Nasal Cannula 3.0 32 10/09/18 00:00 73 10/09/18 00:00 98.1 75 18 149/62 (91) 100 10/08/18 21:39 76 147/61 10/08/18 21:00 Room Air 10/08/18 20:00 79 18 98 Nasal Cannula 3.0 32 10/08/18 20:00 98 Nasal Cannula 3.0 32 10/08/18 20:00 97.7 76 20 147/61 (89) 98 10/08/18 20:00 Nasal Cannula 3.0 32 10/08/18 20:00 73 10/08/18 19:50 77 18 98 Nasal Cannula 3.0 32 10/08/18 16:01 67 10/08/18 16:00 97.7 67 18 117/45 (69) 98 10/08/18 14:27 140/61 10/08/18 13:37 80 18 95 Venturi Mask 8.0 40 10/08/18 13:37 80 18 95 Venturi Mask 8.0 40 Intake and Output 10/08/18 10/09/18 19:00 07:00 Intake Total 500 ml 420 ml Output Total 2000 ml Balance -1500 ml 420 ml Intake Oral 500 ml 420 ml Hemodialysis UF 2000 ml # Voids 3 1 Laboratory Tests 10/09/18 06:17: White Blood Count 3.3L, Red Blood Count 2.67L, Hemoglobin 8.2L, Hematocrit 24.5L , Mean Corpuscular Volume 92, Mean Corpuscular Hemoglobin 30.9, Mean Corpuscular Hemoglobin Concent 33.6, Red Cell Distribution Width 13.7, Platelet Count 234, Mean Platelet Volume 6.9, Neutrophils (%) (Auto) , Lymphocytes (%) ( Auto) , Monocytes (%) (Auto) , Eosinophils (%) (Auto) , Basophils (%) (Auto) , Differential Total Cells Counted 100, Neutrophils % (Manual) 68, Lymphocytes % ( Manual) 23, Monocytes % (Manual) 4, Eosinophils % (Manual) 4H, Basophils % ( Manual) 1, Band Neutrophils 0, Platelet Estimate Adequate, Platelet Morphology Normal, Red Blood Cell Morphology Normal, Sodium Level 135L, Potassium Level 4.8 , Chloride Level 96L, Carbon Dioxide Level 26, Anion Gap 13, Blood Urea Nitrogen 68H, Creatinine 5.7H, Estimat Glomerular Filtration Rate 7.3, Glucose Level 186H, Calcium Level 8.0L, Phosphorus Level 6.4H, Total Bilirubin 0.5, Aspartate Amino Transf (AST/SGOT) 26, Alanine Aminotransferase (ALT/SGPT) 15, Alkaline Phosphatase 142H, Troponin I 0.260H, C-Reactive Protein, Quantitative 15.4H, Pro-B-Type Natriuretic Peptide > 29971O, Total Protein 7.1, Albumin 3.1L , Globulin 4.0, Albumin/Globulin Ratio 0.8L Height (Feet): 5 Height (Inches): 1.00 Weight (Pounds): 175 General Appearance: no apparent distress Cardiovascular: normal rate Respiratory/Chest: decreased breath sounds Abdomen: soft Francis Falk MD Oct 09, 2018 13:10
--- NOTE | 2018-10-09 13:22 | Pulmonology Progress Note ---
Assessment/Plan Assessment/Plan Pulmonary Progress Note Assessment/Plan ASSESSMENT: The patient is a 68-year-old female presenting with shortness of breath in the setting of decompensated heart failure and missed dialysis. PROBLEM LIST: 1. Shortness of breath in the setting of volume overload and missed dialysis. 2. End-stage renal disease on dialysis presenting with missed dialysis. 3. Hyperkalemia secondary to above. 4. Bilateral pulmonary airspace opacities noted on chest x-ray, likely edema. 5. Diabetes, hypertension, hyperlipidemia, GERD. 6. Obesity. 7. CHF with DD 8. Moderate (1.4 cm2) TREATMENT PLAN: 1. Optimize pulmonary hygiene/mobilize as tolerated. 2. Titrate down FiO2 to keep saturations greater than 90%. 3. Monitor volumes and renal function. Dialysis per Renal with UF as able. 4. CT-A given persistent hypoxemia after HD 5. F/U cardiology recs 6. DVT prophylaxis: Hep SQ 7. The patient should have a sleep study as an outpatient. 8. Weight loss, diet, and exercise discussed. Subjective Allergies: Coded Allergies: No Known Allergies (Unverified , 05/12/17) Subjective AFVSS - 2L HD still on VM No cough + SOB no PND no orthopnea no CP no FC Objective Vital Signs Noted General Appearance: WD/WN, no acute distress, other - obese female HEENT: normocephalic, atraumatic, anicteric, mucous membranes moist Respiratory/Chest: chest wall non-tender, lungs clear, normal breath sounds, no respiratory distress, no accessory muscle use Cardiovascular: normal peripheral pulses, normal rate, regular rhythm Abdomen: normal bowel sounds, soft, non tender, no organomegaly, non distended , no mass Extremities: no cyanosis, no clubbing, no edema Microbiology Date/Time Source Procedure Growth Status 10/06/18 08:37 Blood Blood Culture - Preliminary NO GROWTH AFTER 24 HOURS Resulted 10/06/18 08:37 Blood Blood Culture - Preliminary NO GROWTH AFTER 24 HOURS Resulted 10/06/18 10:47 Nasal Nares MRSA Culture - Final NO METHICILLIN RESISTANT STAPH AUREUS... Complete 10/06/18 08:37 Nasal Nares Influenza Types A,B Antigen (SUSIE) - Final Complete Laboratory Tests 10/08/18 05:05: White Blood Count 3.8L, Red Blood Count 2.69L, Hemoglobin 8.2L, Hematocrit 25.0L , Mean Corpuscular Volume 93, Mean Corpuscular Hemoglobin 30.6, Mean Corpuscular Hemoglobin Concent 33.0, Red Cell Distribution Width 13.9, Platelet Count 222, Mean Platelet Volume 6.6, Neutrophils (%) (Auto) 59.0, Lymphocytes (% ) (Auto) 24.8, Monocytes (%) (Auto) 10.7H, Eosinophils (%) (Auto) 3.8H, Basophils (%) (Auto) 1.8, Sodium Level 140, Potassium Level 4.1, Chloride Level 100, Carbon Dioxide Level 26, Anion Gap 14, Blood Urea Nitrogen 88H, Creatinine 6.6H, Estimat Glomerular Filtration Rate 6.2, Glucose Level 109#H, Uric Acid 8.0H, Calcium Level 8.1L, Phosphorus Level 6.5H, Magnesium Level 1.9, Total Bilirubin 0.7, Aspartate Amino Transf (AST/SGOT) 24, Alanine Aminotransferase ( ALT/SGPT) 12, Alkaline Phosphatase 124H, Troponin I 0.504H, C-Reactive Protein, Quantitative 43.3H, Pro-B-Type Natriuretic Peptide > 97748U, Total Protein 7.5, Albumin 3.0L, Globulin 4.5, Albumin/Globulin Ratio 0.7L Current Medications Medications (Trade) Dose Ordered Sig/Toya Route PRN Reason Start Time Stop Time Status Last Admin Dose Admin Acetaminophen (Tylenol) 500 mg Q6H PRN ORAL Prn Headache/Temp > 101 10/06/18 17:00 11/05/18 16:44 Albuterol/ Ipratropium (Albuterol/ Ipratropium) 3 ml Q4H PRN HHN Shortness of Breath 10/06/18 17:15 10/11/18 17:14 10/06/18 17:24 Albuterol/ Ipratropium (Albuterol/ Ipratropium) 3 ml Q6HRT HHN 10/06/18 19:00 10/11/18 18:59 10/08/18 01:07 Aspirin (ASA) 81 mg DAILY ORAL 10/07/18 09:00 11/06/18 08:59 10/08/18 09:02 Atorvastatin Calcium (Lipitor) 40 mg BEDTIME ORAL 10/06/18 21:00 11/05/18 20:59 10/07/18 21:15 Dextrose (Dextrose 50%) 25 ml Q30M PRN IV Hypoglycemia 10/06/18 19:45 11/05/18 19:44 Dextrose (Dextrose 50%) 50 ml Q30M PRN IV Hypoglycemia 10/06/18 19:45 11/05/18 19:44 Docusate Sodium (Colace) 100 mg TID ORAL 10/06/18 18:00 11/05/18 17:59 10/08/18 09:02 Epoetin Panchito (Epoetin Panchito(ESRD on dialysis)) 10,000 unit THU-THU-THU SUBQ 10/08/18 21:00 11/07/18 20:59 Folic Acid (Folate) 1 mg DAILY ORAL 10/07/18 09:00 11/06/18 08:59 10/08/18 09:02 Gabapentin (Neurontin) 100 mg THREE TIMES A DAY ORAL 10/06/18 18:00 11/05/18 17:59 10/08/18 09:02 Gabapentin (Neurontin) 300 mg BEDTIME ORAL 10/06/18 21:00 11/05/18 20:59 10/07/18 21:15 Heparin Sodium (Porcine) (Heparin 5000 units/ml) 5,000 units EVERY 12 HOURS SUBQ 10/07/18 21:00 11/06/18 20:59 10/08/18 09:07 Hydralazine HCl (Apresoline) 25 mg Q6H PRN ORAL SBP > 160mmHg 10/06/18 15:30 11/05/18 15:29 Insulin Aspart (NovoLOG) BEFORE MEALS AND HS SUBQ 10/06/18 21:00 11/05/18 20:59 10/08/18 11:38 Insulin Aspart (NovoLOG) 5 units BEFORE MEALS SUBQ 10/07/18 06:30 11/06/18 06:29 10/08/18 11:37 Insulin Detemir (Levemir) 10 units Q12HR SUBQ 10/08/18 09:00 11/07/18 08:59 10/08/18 09:18 Isosorbide Mononitrate (Imdur) 30 mg DAILY ORAL 10/09/18 09:00 11/08/18 08:59 Levothyroxine Sodium (Synthroid) 50 mcg ACBREAKFAST ORAL 10/07/18 06:30 11/06/18 06:29 10/08/18 06:07 Lisinopril (Prinivil) 20 mg DAILY ORAL 10/07/18 09:00 11/06/18 08:59 10/08/18 09:02 Metoprolol Tartrate (Lopressor) 100 mg EVERY 12 HOURS ORAL 10/07/18 21:00 11/05/18 20:59 10/08/18 09:02 Nifedipine (Procardia XL) 60 mg DAILY ORAL 10/08/18 09:00 11/06/18 08:59 10/08/18 09:01 Ondansetron HCl (Zofran) 4 mg Q6H PRN ORAL Nausea & Vomiting 10/06/18 16:45 11/05/18 16:44 10/07/18 14:14 Pantoprazole (Protonix) 40 mg DAILY ORAL 10/06/18 17:00 11/05/18 16:59 10/08/18 09:01 Sennosides (Senokot) 8.6 mg DAILY ORAL 10/07/18 09:00 11/06/18 08:59 10/08/18 09:01 Sevelamer Carbonate (Renvela) 1,600 mg THREE TIMES A DAY ORAL 10/08/18 13:00 11/07/18 12:59 Tramadol HCl (Ultram) 50 mg Q6H PRN ORAL For Pain 10/06/18 16:45 10/13/18 16:44 Subjective ROS Limited/Unobtainable: No Allergies: Coded Allergies: No Known Allergies (Unverified , 05/12/17) Objective Last 24 Hour Vital Signs Date Time Temp Pulse Resp B/P (MAP) Pulse Ox O2 Delivery O2 Flow Rate FiO2 10/09/18 12:22 97.3 10/09/18 12:00 97.3 69 16 141/58 (85) 97 10/09/18 09:10 146/63 10/09/18 09:07 146/63 10/09/18 09:07 77 146/63 10/09/18 09:06 77 146/63 10/09/18 09:00 Room Air 10/09/18 08:50 77 18 99 Nasal Cannula 3.0 32 10/09/18 08:33 79 18 97 Room Air 21 10/09/18 08:33 Room Air 21 10/09/18 08:33 97 Room Air 21 10/09/18 08:00 97.3 72 16 146/63 (90) 100 10/09/18 08:00 67 10/09/18 04:00 97.8 68 19 121/65 (83) 99 10/09/18 04:00 69 10/09/18 02:00 Nasal Cannula 3.0 32 10/09/18 02:00 Nasal Cannula 3.0 32 10/09/18 00:00 73 10/09/18 00:00 98.1 75 18 149/62 (91) 100 10/08/18 21:39 76 147/61 10/08/18 21:00 Room Air 10/08/18 20:00 79 18 98 Nasal Cannula 3.0 32 10/08/18 20:00 98 Nasal Cannula 3.0 32 10/08/18 20:00 97.7 76 20 147/61 (89) 98 10/08/18 20:00 Nasal Cannula 3.0 32 10/08/18 20:00 73 10/08/18 19:50 77 18 98 Nasal Cannula 3.0 32 10/08/18 16:01 67 10/08/18 16:00 97.7 67 18 117/45 (69) 98 10/08/18 14:27 140/61 10/08/18 13:37 80 18 95 Venturi Mask 8.0 40 10/08/18 13:37 80 18 95 Venturi Mask 8.0 40 Intake and Output 10/08/18 10/09/18 19:00 07:00 Intake Total 500 ml 420 ml Output Total 2000 ml Balance -1500 ml 420 ml Intake Oral 500 ml 420 ml Hemodialysis UF 2000 ml # Voids 3 1 Laboratory Tests 10/09/18 06:17: White Blood Count 3.3L, Red Blood Count 2.67L, Hemoglobin 8.2L, Hematocrit 24.5L , Mean Corpuscular Volume 92, Mean Corpuscular Hemoglobin 30.9, Mean Corpuscular Hemoglobin Concent 33.6, Red Cell Distribution Width 13.7, Platelet Count 234, Mean Platelet Volume 6.9, Neutrophils (%) (Auto) , Lymphocytes (%) ( Auto) , Monocytes (%) (Auto) , Eosinophils (%) (Auto) , Basophils (%) (Auto) , Differential Total Cells Counted 100, Neutrophils % (Manual) 68, Lymphocytes % ( Manual) 23, Monocytes % (Manual) 4, Eosinophils % (Manual) 4H, Basophils % ( Manual) 1, Band Neutrophils 0, Platelet Estimate Adequate, Platelet Morphology Normal, Red Blood Cell Morphology Normal, Sodium Level 135L, Potassium Level 4.8 , Chloride Level 96L, Carbon Dioxide Level 26, Anion Gap 13, Blood Urea Nitrogen 68H, Creatinine 5.7H, Estimat Glomerular Filtration Rate 7.3, Glucose Level 186H, Calcium Level 8.0L, Phosphorus Level 6.4H, Total Bilirubin 0.5, Aspartate Amino Transf (AST/SGOT) 26, Alanine Aminotransferase (ALT/SGPT) 15, Alkaline Phosphatase 142H, Troponin I 0.260H, C-Reactive Protein, Quantitative 15.4H, Pro-B-Type Natriuretic Peptide > 11068E, Total Protein 7.1, Albumin 3.1L , Globulin 4.0, Albumin/Globulin Ratio 0.8L Current Medications Medications (Trade) Dose Ordered Sig/Toya Route PRN Reason Start Time Stop Time Status Last Admin Dose Admin Acetaminophen (Tylenol) 500 mg Q6H PRN ORAL Prn Headache/Temp > 101 10/06/18 17:00 11/05/18 16:44 10/09/18 11:52 Albuterol/ Ipratropium (Albuterol/ Ipratropium) 3 ml Q4H PRN HHN Shortness of Breath 10/06/18 17:15 10/11/18 17:14 10/06/18 17:24 Albuterol/ Ipratropium (Albuterol/ Ipratropium) 3 ml Q6HRT HHN 10/06/18 19:00 10/11/18 18:59 10/09/18 08:33 Aspirin (ASA) 81 mg DAILY ORAL 10/07/18 09:00 11/06/18 08:59 10/09/18 09:07 Atorvastatin Calcium (Lipitor) 40 mg BEDTIME ORAL 10/06/18 21:00 11/05/18 20:59 10/08/18 21:38 Dextrose (Dextrose 50%) 25 ml Q30M PRN IV Hypoglycemia 10/06/18 19:45 11/05/18 19:44 Dextrose (Dextrose 50%) 50 ml Q30M PRN IV Hypoglycemia 10/06/18 19:45 11/05/18 19:44 Docusate Sodium (Colace) 100 mg TID ORAL 10/06/18 18:00 11/05/18 17:59 10/09/18 12:19 Epoetin Panchito (Epoetin Panchito(ESRD on dialysis)) 10,000 unit THU-THU-THU SUBQ 10/08/18 21:00 11/07/18 20:59 10/08/18 21:39 Folic Acid (Folate) 1 mg DAILY ORAL 10/07/18 09:00 11/06/18 08:59 10/09/18 09:07 Gabapentin (Neurontin) 100 mg THREE TIMES A DAY ORAL 10/06/18 18:00 11/05/18 17:59 10/09/18 12:19 Gabapentin (Neurontin) 300 mg BEDTIME ORAL 10/06/18 21:00 11/05/18 20:59 10/08/18 21:39 Heparin Sodium (Porcine) (Heparin 5000 units/ml) 5,000 units EVERY 12 HOURS SUBQ 10/07/18 21:00 11/06/18 20:59 10/09/18 09:09 Hydralazine HCl (Apresoline) 25 mg Q6H PRN ORAL SBP > 160mmHg 10/06/18 15:30 11/05/18 15:29 Insulin Aspart (NovoLOG) BEFORE MEALS AND HS SUBQ 10/06/18 21:00 11/05/18 20:59 10/09/18 11:46 Insulin Aspart (NovoLOG) 5 units BEFORE MEALS SUBQ 10/07/18 06:30 11/06/18 06:29 10/09/18 11:45 Insulin Detemir (Levemir) 10 units Q12HR SUBQ 10/08/18 09:00 11/07/18 08:59 10/09/18 09:09 Iopamidol (Isovue-370 150ml) 150 ml NOW PRN INJ Radiology Procedure 10/08/18 16:00 10/10/18 15:50 Isosorbide Mononitrate (Imdur) 30 mg DAILY ORAL 10/09/18 09:00 11/08/18 08:59 10/09/18 09:07 Levothyroxine Sodium (Synthroid) 50 mcg ACBREAKFAST ORAL 10/07/18 06:30 11/06/18 06:29 10/09/18 06:22 Lisinopril (Prinivil) 20 mg DAILY ORAL 10/07/18 09:00 11/06/18 08:59 10/09/18 09:10 Metoprolol Tartrate (Lopressor) 100 mg EVERY 12 HOURS ORAL 10/07/18 21:00 11/05/18 20:59 10/09/18 09:06 Nifedipine (Procardia XL) 60 mg DAILY ORAL 10/08/18 09:00 11/06/18 08:59 10/09/18 09:07 Ondansetron HCl (Zofran) 4 mg Q6H PRN ORAL Nausea & Vomiting 10/06/18 16:45 11/05/18 16:44 10/08/18 17:26 Pantoprazole (Protonix) 40 mg DAILY ORAL 10/06/18 17:00 11/05/18 16:59 10/09/18 09:06 Sennosides (Senokot) 8.6 mg DAILY ORAL 10/07/18 09:00 11/06/18 08:59 10/09/18 09:07 Sevelamer Carbonate (Renvela) 2,400 mg THREE TIMES A DAY ORAL 10/09/18 18:00 11/07/18 12:59 Tramadol HCl (Ultram) 50 mg Q6H PRN ORAL For Pain 10/06/18 16:45 10/13/18 16:44 Brandon Herbert MD Oct 09, 2018 13:22
--- NOTE | 2018-10-09 13:23 | Discharge Summary ---
Discharge Summary Hospital Course Date of Admission Oct 06, 2018 at 09:05 Date of Discharge Admitting Diagnosis sob, acs HPI Carolina Vasquez is a 68 year old female who was admitted on Oct 06, 2018 at 09:05 for Shortness Of Breath,Acute Coronary Syndrome Discharge Discharge Disposition Patient was discharged to Brandon Herbert MD Oct 09, 2018 13:23
[2018-10-09 16:00] VITALS: BP 113/52
--- NOTE | 2018-10-09 16:48 | General Progress Note ---
Assessment/Plan Problem List: (1) Diabetic nephropathy with proteinuria ICD Codes: E11.21 - Type 2 diabetes mellitus with diabetic nephropathy SNOMED: 75213885, 458075566 (2) Dyspnea ICD Codes: R06.00 - Dyspnea, unspecified SNOMED: 003190020 Qualifiers: Qualified Codes: R06.00 - Dyspnea, unspecified (3) ESRD (end stage renal disease) ICD Codes: N18.6 - End stage renal disease SNOMED: 52309681 (4) Hyperkalemia, diminished renal excretion ICD Codes: E87.5 - Hyperkalemia SNOMED: 16519296 (5) Hypertensive kidney disease ICD Codes: I12.9 - Hypertensive chronic kidney disease with stage 1 through stage 4 chronic kidney disease, or unspecified chronic kidney disease SNOMED: 36160909 (6) ACS (acute coronary syndrome) ICD Codes: I24.9 - Acute ischemic heart disease, unspecified SNOMED: 989202093 (7) Pneumonia ICD Codes: J18.9 - Pneumonia, unspecified organism SNOMED: 848951911 Status: progressing Assessment/Plan afebrile sob is improving vitals stable reviewd chart and labs htn bp improving pulm edema Subjective Respiratory: Reports: shortness of breath Allergies: Coded Allergies: No Known Allergies (Unverified , 05/12/17) Objective Last 24 Hour Vital Signs Date Time Temp Pulse Resp B/P (MAP) Pulse Ox O2 Delivery O2 Flow Rate FiO2 10/09/18 14:20 79 18 99 Room Air 21 10/09/18 14:14 82 18 98 Room Air 21 10/09/18 12:22 97.3 10/09/18 12:00 73 10/09/18 12:00 97.3 69 16 141/58 (85) 97 10/09/18 09:10 146/63 10/09/18 09:07 146/63 10/09/18 09:07 77 146/63 10/09/18 09:06 77 146/63 10/09/18 09:00 Room Air 10/09/18 08:50 77 18 99 Nasal Cannula 3.0 32 10/09/18 08:33 79 18 97 Room Air 21 10/09/18 08:33 Room Air 21 10/09/18 08:33 97 Room Air 21 10/09/18 08:00 97.3 72 16 146/63 (90) 100 10/09/18 08:00 67 10/09/18 04:00 97.8 68 19 121/65 (83) 99 10/09/18 04:00 69 10/09/18 02:00 Nasal Cannula 3.0 32 10/09/18 02:00 Nasal Cannula 3.0 32 10/09/18 00:00 73 10/09/18 00:00 98.1 75 18 149/62 (91) 100 10/08/18 21:39 76 147/61 10/08/18 21:00 Room Air 10/08/18 20:00 79 18 98 Nasal Cannula 3.0 32 10/08/18 20:00 98 Nasal Cannula 3.0 32 10/08/18 20:00 97.7 76 20 147/61 (89) 98 10/08/18 20:00 Nasal Cannula 3.0 32 10/08/18 20:00 73 10/08/18 19:50 77 18 98 Nasal Cannula 3.0 32 Intake and Output 10/08/18 10/09/18 19:00 07:00 Intake Total 500 ml 420 ml Output Total 2000 ml Balance -1500 ml 420 ml Intake Oral 500 ml 420 ml Hemodialysis UF 2000 ml # Voids 3 1 Laboratory Tests 10/09/18 06:17: White Blood Count 3.3L, Red Blood Count 2.67L, Hemoglobin 8.2L, Hematocrit 24.5L , Mean Corpuscular Volume 92, Mean Corpuscular Hemoglobin 30.9, Mean Corpuscular Hemoglobin Concent 33.6, Red Cell Distribution Width 13.7, Platelet Count 234, Mean Platelet Volume 6.9, Neutrophils (%) (Auto) , Lymphocytes (%) ( Auto) , Monocytes (%) (Auto) , Eosinophils (%) (Auto) , Basophils (%) (Auto) , Differential Total Cells Counted 100, Neutrophils % (Manual) 68, Lymphocytes % ( Manual) 23, Monocytes % (Manual) 4, Eosinophils % (Manual) 4H, Basophils % ( Manual) 1, Band Neutrophils 0, Platelet Estimate Adequate, Platelet Morphology Normal, Red Blood Cell Morphology Normal, Sodium Level 135L, Potassium Level 4.8 , Chloride Level 96L, Carbon Dioxide Level 26, Anion Gap 13, Blood Urea Nitrogen 68H, Creatinine 5.7H, Estimat Glomerular Filtration Rate 7.3, Glucose Level 186H, Calcium Level 8.0L, Phosphorus Level 6.4H, Total Bilirubin 0.5, Aspartate Amino Transf (AST/SGOT) 26, Alanine Aminotransferase (ALT/SGPT) 15, Alkaline Phosphatase 142H, Troponin I 0.260H, C-Reactive Protein, Quantitative 15.4H, Pro-B-Type Natriuretic Peptide > 26220I, Total Protein 7.1, Albumin 3.1L , Globulin 4.0, Albumin/Globulin Ratio 0.8L Height (Feet): 5 Height (Inches): 1.00 Weight (Pounds): 175 Respiratory/Chest: lungs clear Abdomen: soft Makenna Daniel MD Oct 09, 2018 16:48
[2018-10-09 20:00] VITALS: BP 134/53
[2018-10-09] MEDS: Atorvastatin 80mg tab ORAL SCH (21:01)
--- NOTE | 2018-10-09 22:36 | Cardiology Progress Note ---
Assessment/Plan Assessment/Plan 1. Acute diastolic congestive heart failure. This is most likely attributed to missed hemodialysis. Beta-natriuretic peptide is severely elevated, continue aggressive hemodialysis, continuation of diuretics and afterload reduction. 2. History of CVA/TIA, continue aspirin and atorvastatin. 3. History of diabetes mellitus. 4. History of hypertension, continue nifedipine, metoprolol and lisinopril, continue hydralazine on a p.r.n. basis. Subjective Subjective Sinus rhythm at rate of 75. Objective Last 24 Hour Vital Signs Date Time Temp Pulse Resp B/P (MAP) Pulse Ox O2 Delivery O2 Flow Rate FiO2 10/09/18 21:00 75 127/55 10/09/18 20:00 78 18 100 Room Air 21 10/09/18 19:53 96 Room Air 21 10/09/18 19:53 Room Air 21 10/09/18 19:51 76 18 96 Room Air 10/09/18 16:00 65 10/09/18 16:00 97.3 74 18 113/52 (72) 97 10/09/18 14:20 79 18 99 Room Air 21 10/09/18 14:14 82 18 98 Room Air 21 10/09/18 12:22 97.3 10/09/18 12:00 73 10/09/18 12:00 97.3 69 16 141/58 (85) 97 10/09/18 09:10 146/63 10/09/18 09:07 146/63 10/09/18 09:07 77 146/63 10/09/18 09:06 77 146/63 10/09/18 09:00 Room Air 10/09/18 08:50 77 18 99 Nasal Cannula 3.0 32 10/09/18 08:33 79 18 97 Room Air 21 10/09/18 08:33 Room Air 21 10/09/18 08:33 97 Room Air 10/09/18 08:00 97.3 72 16 146/63 (90) 100 10/09/18 08:00 67 10/09/18 04:00 97.8 68 19 121/65 (83) 99 10/09/18 04:00 69 10/09/18 02:00 Nasal Cannula 3.0 32 10/09/18 02:00 Nasal Cannula 3.0 32 10/09/18 00:00 73 10/09/18 00:00 98.1 75 18 149/62 (91) 100 Intake and Output 10/08/18 10/09/18 19:00 07:00 Intake Total 500 ml 420 ml Output Total 2000 ml Balance -1500 ml 420 ml Intake Oral 500 ml 420 ml Hemodialysis UF 2000 ml # Voids 3 1 2D Echo: EF55%, Mild LVH, YUDELKA, Mild MR/AR, RAP~15mmHg, RVSP 55mmHg, Grade II LVDD Laboratory Tests Test 10/09/18 06:17 White Blood Count 3.3 K/UL (4.8-10.8) L Red Blood Count 2.67 M/UL (4.20-5.40) L Hemoglobin 8.2 G/DL (12.0-16.0) L Hematocrit 24.5 % (37.0-47.0) L Mean Corpuscular Volume 92 FL (80-99) Mean Corpuscular Hemoglobin 30.9 PG (27.0-31.0) Mean Corpuscular Hemoglobin Concent 33.6 G/DL (32.0-36.0) Red Cell Distribution Width 13.7 % (11.6-14.8) Platelet Count 234 K/UL (150-450) Mean Platelet Volume 6.9 FL (6.5-10.1) Neutrophils (%) (Auto) % (45.0-75.0) Lymphocytes (%) (Auto) % (20.0-45.0) Monocytes (%) (Auto) % (1.0-10.0) Eosinophils (%) (Auto) % (0.0-3.0) Basophils (%) (Auto) % (0.0-2.0) Differential Total Cells Counted 100 Neutrophils % (Manual) 68 % (45-75) Lymphocytes % (Manual) 23 % (20-45) Monocytes % (Manual) 4 % (1-10) Eosinophils % (Manual) 4 % (0-3) H Basophils % (Manual) 1 % (0-2) Band Neutrophils 0 % (0-8) Platelet Estimate Adequate Platelet Morphology Normal Red Blood Cell Morphology Normal Sodium Level 135 MMOL/L (136-145) L Potassium Level 4.8 MMOL/L (3.5-5.1) Chloride Level 96 MMOL/L (98-107) L Carbon Dioxide Level 26 MMOL/L (21-32) Anion Gap 13 mmol/L (5-15) Blood Urea Nitrogen 68 mg/dL (7-18) H Creatinine 5.7 MG/DL (0.55-1.30) H Estimat Glomerular Filtration Rate 7.3 mL/min (>60) Glucose Level 186 MG/DL (74-106) H Calcium Level 8.0 MG/DL (8.5-10.1) L Phosphorus Level 6.4 MG/DL (2.5-4.9) H Total Bilirubin 0.5 MG/DL (0.2-1.0) Aspartate Amino Transf (AST/SGOT) 26 U/L (15-37) Alanine Aminotransferase (ALT/SGPT) 15 U/L (12-78) Alkaline Phosphatase 142 U/L (46-116) H Troponin I 0.260 ng/mL (0.000-0.056) C-Reactive Protein, Quantitative 15.4 mg/dL (0.00-0.90) H Pro-B-Type Natriuretic Peptide > 09851 pg/mL (0-125) H Total Protein 7.1 G/DL (6.4-8.2) Albumin 3.1 G/DL (3.4-5.0) L Globulin 4.0 g/dL Albumin/Globulin Ratio 0.8 (1.0-2.7) L Objective HEENT: Atraumatic and normocephalic. Anicteric. Pupils are equal, round, and reactive to light and accommodation. Extraocular muscles intact. NECK: JVP less than 5 cm. No carotid bruit. Carotid upstrokes 2+ bilaterally. CARDIOVASCULAR: Normal S1, S2. Regular rate and rhythm. No murmurs, gallops, or rubs. PMI is at fourth intercostal space in the midclavicular line. LUNGS: Clear to auscultation bilaterally. ABDOMEN: Soft, nontender, and nondistended. No hepatosplenomegaly. Positive bowel sounds. EXTREMITIES: No evidence of edema, clubbing, or cyanosis. Zev Alfonso MD Oct 09, 2018 22:36
[2018-10-10] VITALS: BP 146/63
[2018-10-10] MEDS: Albuterol/Ipratropium 3ml neb HHN SCH ×4 (00:47→19:35)
[2018-10-10 04:00] VITALS: BP 122/44
[2018-10-10] MEDS: NovoLOG Insulin Flexpen SUBQ SCH ×8 (06:27→22:38)
[2018-10-10 08:00] VITALS: BP 150/67
[2018-10-10] MEDS: Docusate 100mg cap ORAL SCH ×3 (08:32→17:40)
[2018-10-10] MEDS: Aspirin Baby 81mg ORAL SCH (08:32)
[2018-10-10] MEDS: Sennosides 8.6mg tab ORAL SCH (08:32)
[2018-10-10] MEDS ORDERED: Levemir Flexpen SUBQ SCH (09:00)
[2018-10-10] MEDS: Lisinopril 20mg tab ORAL SCH (09:00)
[2018-10-10] MEDS: Imdur 30mg tab ORAL SCH (09:00)
[2018-10-10] MEDS: Heparin 5000 units/ml inj SUBQ SCH ×2 (09:00→20:06)
--- NOTE | 2018-10-10 09:46 | Diagnostic Imaging Report ---
EXAM: XR Chest, 1 View CLINICAL HISTORY: COUGH TECHNIQUE: Frontal view of the chest. COMPARISON: Chest x-ray 10/06/[address] chest 10/08/18 FINDINGS: Lungs: Bilateral airspace opacities are slightly worsened than the prior CT. Pleural space: Unremarkable. No pneumothorax. Heart: Cardiomegaly. Mediastinum: Unremarkable. Bones/joints: Unremarkable. IMPRESSION: Bilateral airspace opacities are slightly worse in the prior CT.
[2018-10-10 12:00] VITALS: BP 146/51
[2018-10-10 12:16] LABS: HEMATOCRIT 22.4 % (37.0-47.0); HEMOGLOBIN 7.4 G/DL (12.0-16.0); MEAN CORPUSCULAR VOLUME 91 FL (80-99); PLATELET COUNT 222 K/UL (150-450); RED BLOOD COUNT 2.47 M/UL (4.20-5.40); WHITE BLOOD COUNT 3.8 K/UL (4.8-10.8)
[2018-10-10 12:27] LABS: ALANINE AMINOTRANSFERASE 10 U/L (12-78); ALBUMIN 2.8 G/DL (3.4-5.0); ALBUMIN/GLOBULIN RATIO 0.7 (1.0-2.7); ALKALINE PHOSPHATASE 133 U/L (46-116); ANION GAP 10 mmol/L (5-15); ASPARTATE AMINO TRANSFERASE 15 U/L (15-37); BILIRUBIN,TOTAL 0.4 MG/DL (0.2-1.0); BLOOD UREA NITROGEN 90 mg/dL (7-18); CALCIUM 7.1 MG/DL (8.5-10.1); CARBON DIOXIDE 26 MMOL/L (21-32); CHLORIDE 94 MMOL/L (98-107); POTASSIUM 4.5 MMOL/L (3.5-5.1); SODIUM 129 MMOL/L (136-145)
--- NOTE | 2018-10-10 12:35 | Nephrology Progress Note ---
Assessment/Plan Problem List: (1) ESRD (end stage renal disease) (2) Hyperkalemia, diminished renal excretion (3) ACS (acute coronary syndrome) (4) Hypertensive kidney disease (5) Anemia in chronic kidney disease (CKD) Assessment - Hyperkalemia missed dialysis 34 - Volume overload - ESRD (end stage renal disease) missed HD 3/4 - Hypertensive kidney disease - h/o CAD - Diabetic nephropathy with proteinuria - h/o Anemia , low B12 and low Iron - h/o Dizziness and unsteady gait Plan Plan on HD now- Venofer check labs in am Renal diet- repeat CXR HTN, meds adjusted Reglan PO HD next 10/12 gastric support Subjective ROS Limited/Unobtainable: No Constitutional: Reports: other - tolerating HD now Objective Objective Last 24 Hour Vital Signs Date Time Temp Pulse Resp B/P (MAP) Pulse Ox O2 Delivery O2 Flow Rate FiO2 10/10/18 09:00 Room Air 10/10/18 09:00 150/67 10/10/18 09:00 78 150/67 10/10/18 09:00 78 150/67 10/10/18 09:00 150/67 10/10/18 08:00 98.2 78 18 150/67 (94) 96 10/10/18 07:27 71 18 99 Room Air 21 10/10/18 07:23 Room Air 21 10/10/18 07:23 97 Room Air 21 10/10/18 07:16 73 16 95 Room Air 21 10/10/18 04:00 71 10/10/18 04:00 97.6 70 18 122/44 (70) 99 10/10/18 00:58 72 18 99 Room Air 21 10/10/18 00:47 69 18 97 Room Air 21 10/10/18 00:00 98.2 78 18 146/63 (90) 99 10/09/18 21:00 75 127/55 10/09/18 21:00 Room Air 10/09/18 20:00 78 18 100 Room Air 21 10/09/18 20:00 73 10/09/18 20:00 98.7 80 20 134/53 (80) 99 10/09/18 19:53 96 Room Air 21 10/09/18 19:53 Room Air 21 10/09/18 19:51 76 18 96 Room Air 21 10/09/18 16:00 65 10/09/18 16:00 97.3 74 18 113/52 (72) 97 10/09/18 14:20 79 18 99 Room Air 21 10/09/18 14:14 82 18 98 Room Air 21 Intake and Output 10/09/18 10/10/18 19:00 07:00 Intake Total 800 ml 500 ml Balance 800 ml 500 ml Intake Oral 800 ml 500 ml # Voids 1 Laboratory Tests 10/10/18 11:45: White Blood Count 3.8L, Red Blood Count 2.47L, Hemoglobin 7.4L, Hematocrit 22.4L , Mean Corpuscular Volume 91, Mean Corpuscular Hemoglobin 30.2, Mean Corpuscular Hemoglobin Concent 33.3, Red Cell Distribution Width 13.0, Platelet Count 222, Mean Platelet Volume 6.0L, Neutrophils (%) (Auto) , Lymphocytes (%) ( Auto) , Monocytes (%) (Auto) , Eosinophils (%) (Auto) , Basophils (%) (Auto) , Differential Total Cells Counted 100, Neutrophils % (Manual) 63, Lymphocytes % ( Manual) 24, Monocytes % (Manual) 7, Eosinophils % (Manual) 6H, Basophils % ( Manual) 0, Band Neutrophils 0, Platelet Estimate Adequate, Platelet Morphology Normal, Hypochromasia 1+, Sodium Level 129L, Potassium Level 4.5, Chloride Level 94L, Carbon Dioxide Level 26, Anion Gap 10, Blood Urea Nitrogen 90H, Creatinine 7.0H, Estimat Glomerular Filtration Rate 5.8, Glucose Level 171H, Calcium Level 7.1L, Total Bilirubin 0.4, Aspartate Amino Transf (AST/SGOT) 15, Alanine Aminotransferase (ALT/SGPT) 10L, Alkaline Phosphatase 133H, Total Protein 6.7, Albumin 2.8L, Globulin 3.9, Albumin/Globulin Ratio 0.7L Height (Feet): 5 Height (Inches): 1.00 Weight (Pounds): 177 General Appearance: no apparent distress Cardiovascular: normal rate Respiratory/Chest: decreased breath sounds Abdomen: soft Francis Falk MD Oct 10, 2018 12:35
--- NOTE | 2018-10-10 14:15 | Pulmonology Progress Note ---
Assessment/Plan Assessment/Plan Pulmonary Progress Note Assessment/Plan ASSESSMENT: The patient is a 68-year-old female presenting with shortness of breath in the setting of decompensated heart failure and missed dialysis. PROBLEM LIST: 1. Shortness of breath in the setting of volume overload and missed dialysis. 2. End-stage renal disease on dialysis presenting with missed dialysis. 3. Hyperkalemia secondary to above. 4. Bilateral pulmonary airspace opacities noted on chest x-ray, likely edema. 5. Diabetes, hypertension, hyperlipidemia, GERD. 6. Obesity. 7. CHF with DD 8. Moderate (1.4 cm2) TREATMENT PLAN: 1. Optimize pulmonary hygiene/mobilize as tolerated. 2. Titrate down FiO2 to keep saturations greater than 90%. 3. Monitor volumes and renal function. Dialysis per Renal with UF as able. 4. CT-A given persistent hypoxemia after HD 5. F/U cardiology recs 6. DVT prophylaxis: Hep SQ 7. The patient should have a sleep study as an outpatient. 8. Weight loss, diet, and exercise discussed. Subjective Allergies: Coded Allergies: No Known Allergies (Unverified , 05/12/17) Subjective AFVSS - 2L HD still on VM No cough + SOB no PND no orthopnea no CP no FC Objective Vital Signs Noted General Appearance: WD/WN, no acute distress, other - obese female HEENT: normocephalic, atraumatic, anicteric, mucous membranes moist Respiratory/Chest: chest wall non-tender, lungs clear, normal breath sounds, no respiratory distress, no accessory muscle use Cardiovascular: normal peripheral pulses, normal rate, regular rhythm Abdomen: normal bowel sounds, soft, non tender, no organomegaly, non distended , no mass Extremities: no cyanosis, no clubbing, no edema Microbiology Date/Time Source Procedure Growth Status 10/06/18 08:37 Blood Blood Culture - Preliminary NO GROWTH AFTER 24 HOURS Resulted 10/06/18 08:37 Blood Blood Culture - Preliminary NO GROWTH AFTER 24 HOURS Resulted 10/06/18 10:47 Nasal Nares MRSA Culture - Final NO METHICILLIN RESISTANT STAPH AUREUS... Complete 10/06/18 08:37 Nasal Nares Influenza Types A,B Antigen (SUSIE) - Final Complete Laboratory Tests 10/08/18 05:05: White Blood Count 3.8L, Red Blood Count 2.69L, Hemoglobin 8.2L, Hematocrit 25.0L , Mean Corpuscular Volume 93, Mean Corpuscular Hemoglobin 30.6, Mean Corpuscular Hemoglobin Concent 33.0, Red Cell Distribution Width 13.9, Platelet Count 222, Mean Platelet Volume 6.6, Neutrophils (%) (Auto) 59.0, Lymphocytes (% ) (Auto) 24.8, Monocytes (%) (Auto) 10.7H, Eosinophils (%) (Auto) 3.8H, Basophils (%) (Auto) 1.8, Sodium Level 140, Potassium Level 4.1, Chloride Level 100, Carbon Dioxide Level 26, Anion Gap 14, Blood Urea Nitrogen 88H, Creatinine 6.6H, Estimat Glomerular Filtration Rate 6.2, Glucose Level 109#H, Uric Acid 8.0H, Calcium Level 8.1L, Phosphorus Level 6.5H, Magnesium Level 1.9, Total Bilirubin 0.7, Aspartate Amino Transf (AST/SGOT) 24, Alanine Aminotransferase ( ALT/SGPT) 12, Alkaline Phosphatase 124H, Troponin I 0.504H, C-Reactive Protein, Quantitative 43.3H, Pro-B-Type Natriuretic Peptide > 02366B, Total Protein 7.5, Albumin 3.0L, Globulin 4.5, Albumin/Globulin Ratio 0.7L Current Medications Medications (Trade) Dose Ordered Sig/Toya Route PRN Reason Start Time Stop Time Status Last Admin Dose Admin Acetaminophen (Tylenol) 500 mg Q6H PRN ORAL Prn Headache/Temp > 101 10/06/18 17:00 11/05/18 16:44 Albuterol/ Ipratropium (Albuterol/ Ipratropium) 3 ml Q4H PRN HHN Shortness of Breath 10/06/18 17:15 10/11/18 17:14 10/06/18 17:24 Albuterol/ Ipratropium (Albuterol/ Ipratropium) 3 ml Q6HRT HHN 10/06/18 19:00 10/11/18 18:59 10/08/18 01:07 Aspirin (ASA) 81 mg DAILY ORAL 10/07/18 09:00 11/06/18 08:59 10/08/18 09:02 Atorvastatin Calcium (Lipitor) 40 mg BEDTIME ORAL 10/06/18 21:00 11/05/18 20:59 10/07/18 21:15 Dextrose (Dextrose 50%) 25 ml Q30M PRN IV Hypoglycemia 10/06/18 19:45 11/05/18 19:44 Dextrose (Dextrose 50%) 50 ml Q30M PRN IV Hypoglycemia 10/06/18 19:45 11/05/18 19:44 Docusate Sodium (Colace) 100 mg TID ORAL 10/06/18 18:00 11/05/18 17:59 10/08/18 09:02 Epoetin Panchito (Epoetin Panchito(ESRD on dialysis)) 10,000 unit THU-THU-THU SUBQ 10/08/18 21:00 11/07/18 20:59 Folic Acid (Folate) 1 mg DAILY ORAL 10/07/18 09:00 11/06/18 08:59 10/08/18 09:02 Gabapentin (Neurontin) 100 mg THREE TIMES A DAY ORAL 10/06/18 18:00 11/05/18 17:59 10/08/18 09:02 Gabapentin (Neurontin) 300 mg BEDTIME ORAL 10/06/18 21:00 11/05/18 20:59 10/07/18 21:15 Heparin Sodium (Porcine) (Heparin 5000 units/ml) 5,000 units EVERY 12 HOURS SUBQ 10/07/18 21:00 11/06/18 20:59 10/08/18 09:07 Hydralazine HCl (Apresoline) 25 mg Q6H PRN ORAL SBP > 160mmHg 10/06/18 15:30 11/05/18 15:29 Insulin Aspart (NovoLOG) BEFORE MEALS AND HS SUBQ 10/06/18 21:00 11/05/18 20:59 10/08/18 11:38 Insulin Aspart (NovoLOG) 5 units BEFORE MEALS SUBQ 10/07/18 06:30 11/06/18 06:29 10/08/18 11:37 Insulin Detemir (Levemir) 10 units Q12HR SUBQ 10/08/18 09:00 11/07/18 08:59 10/08/18 09:18 Isosorbide Mononitrate (Imdur) 30 mg DAILY ORAL 10/09/18 09:00 11/08/18 08:59 Levothyroxine Sodium (Synthroid) 50 mcg ACBREAKFAST ORAL 10/07/18 06:30 11/06/18 06:29 10/08/18 06:07 Lisinopril (Prinivil) 20 mg DAILY ORAL 10/07/18 09:00 11/06/18 08:59 10/08/18 09:02 Metoprolol Tartrate (Lopressor) 100 mg EVERY 12 HOURS ORAL 10/07/18 21:00 11/05/18 20:59 10/08/18 09:02 Nifedipine (Procardia XL) 60 mg DAILY ORAL 10/08/18 09:00 11/06/18 08:59 10/08/18 09:01 Ondansetron HCl (Zofran) 4 mg Q6H PRN ORAL Nausea & Vomiting 10/06/18 16:45 11/05/18 16:44 10/07/18 14:14 Pantoprazole (Protonix) 40 mg DAILY ORAL 10/06/18 17:00 11/05/18 16:59 10/08/18 09:01 Sennosides (Senokot) 8.6 mg DAILY ORAL 10/07/18 09:00 11/06/18 08:59 10/08/18 09:01 Sevelamer Carbonate (Renvela) 1,600 mg THREE TIMES A DAY ORAL 10/08/18 13:00 11/07/18 12:59 Tramadol HCl (Ultram) 50 mg Q6H PRN ORAL For Pain 10/06/18 16:45 10/13/18 16:44 Subjective ROS Limited/Unobtainable: No Allergies: Coded Allergies: No Known Allergies (Unverified , 05/12/17) Objective Last 24 Hour Vital Signs Date Time Temp Pulse Resp B/P (MAP) Pulse Ox O2 Delivery O2 Flow Rate FiO2 10/10/18 13:53 Nasal Cannula 10/10/18 13:23 77 18 99 Room Air 21 10/10/18 13:11 69 18 94 Room Air 21 10/10/18 09:00 Room Air 10/10/18 09:00 150/67 10/10/18 09:00 78 150/67 10/10/18 09:00 78 150/67 10/10/18 09:00 150/67 10/10/18 08:00 98.2 78 18 150/67 (94) 96 10/10/18 07:27 71 18 99 Room Air 21 3/10/19 07:23 Room Air 21 10/10/18 07:23 97 Room Air 21 10/10/18 07:16 73 16 95 Room Air 21 10/10/18 04:00 71 10/10/18 04:00 97.6 70 18 122/44 (70) 99 10/10/18 00:58 72 18 99 Room Air 21 10/10/18 00:47 69 18 97 Room Air 21 10/10/18 00:00 98.2 78 18 146/63 (90) 99 10/09/18 21:00 75 127/55 10/09/18 21:00 Room Air 10/09/18 20:00 78 18 100 Room Air 21 10/09/18 20:00 73 10/09/18 20:00 98.7 80 20 134/53 (80) 99 10/09/18 19:53 96 Room Air 21 10/09/18 19:53 Room Air 21 10/09/18 19:51 76 18 96 Room Air 21 10/09/18 16:00 65 10/09/18 16:00 97.3 74 18 113/52 (72) 97 10/09/18 14:20 79 18 99 Room Air 21 Intake and Output 10/09/18 10/10/18 19:00 07:00 Intake Total 800 ml 500 ml Balance 800 ml 500 ml Intake Oral 800 ml 500 ml # Voids 1 Laboratory Tests 10/10/18 11:45: White Blood Count 3.8L, Red Blood Count 2.47L, Hemoglobin 7.4L, Hematocrit 22.4L , Mean Corpuscular Volume 91, Mean Corpuscular Hemoglobin 30.2, Mean Corpuscular Hemoglobin Concent 33.3, Red Cell Distribution Width 13.0, Platelet Count 222, Mean Platelet Volume 6.0L, Neutrophils (%) (Auto) , Lymphocytes (%) ( Auto) , Monocytes (%) (Auto) , Eosinophils (%) (Auto) , Basophils (%) (Auto) , Differential Total Cells Counted 100, Neutrophils % (Manual) 63, Lymphocytes % ( Manual) 24, Monocytes % (Manual) 7, Eosinophils % (Manual) 6H, Basophils % ( Manual) 0, Band Neutrophils 0, Platelet Estimate Adequate, Platelet Morphology Normal, Hypochromasia 1+, Sodium Level 129L, Potassium Level 4.5, Chloride Level 94L, Carbon Dioxide Level 26, Anion Gap 10, Blood Urea Nitrogen 90H, Creatinine 7.0H, Estimat Glomerular Filtration Rate 5.8, Glucose Level 171H, Calcium Level 7.1L, Ferritin 1106H, Total Bilirubin 0.4, Aspartate Amino Transf (AST/SGOT) 15, Alanine Aminotransferase (ALT/SGPT) 10L, Alkaline Phosphatase 133H, C-Reactive Protein, Quantitative 9.1H, Total Protein 6.7, Albumin 2.8L, Globulin 3.9, Albumin/Globulin Ratio 0.7L Current Medications Medications (Trade) Dose Ordered Sig/Toya Route PRN Reason Start Time Stop Time Status Last Admin Dose Admin Acetaminophen (Tylenol) 500 mg Q6H PRN ORAL Prn Headache/Temp > 101 10/06/18 17:00 11/05/18 16:44 10/09/18 11:52 Albuterol/ Ipratropium (Albuterol/ Ipratropium) 3 ml Q4H PRN HHN Shortness of Breath 10/06/18 17:15 10/11/18 17:14 10/06/18 17:24 Albuterol/ Ipratropium (Albuterol/ Ipratropium) 3 ml Q6HRT HHN 10/06/18 19:00 10/11/18 18:59 10/10/18 13:10 Aspirin (ASA) 81 mg DAILY ORAL 10/07/18 09:00 11/06/18 08:59 10/10/18 08:32 Atorvastatin Calcium (Lipitor) 40 mg BEDTIME ORAL 10/06/18 21:00 11/05/18 20:59 10/09/18 21:01 Dextrose (Dextrose 50%) 25 ml Q30M PRN IV Hypoglycemia 10/06/18 19:45 11/05/18 19:44 Dextrose (Dextrose 50%) 50 ml Q30M PRN IV Hypoglycemia 10/06/18 19:45 11/05/18 19:44 Docusate Sodium (Colace) 100 mg TID ORAL 10/06/18 18:00 11/05/18 17:59 10/10/18 13:39 Epoetin Panchito (Epoetin Panchito(ESRD on dialysis)) 10,000 unit THU-WED-THU SUBQ 10/08/18 21:00 11/07/18 20:59 3/8/19 21:39 Folic Acid (Folate) 1 mg DAILY ORAL 10/07/18 09:00 11/06/18 08:59 10/10/18 08:32 Gabapentin (Neurontin) 100 mg THREE TIMES A DAY ORAL 10/06/18 18:00 11/05/18 17:59 10/10/18 13:39 Gabapentin (Neurontin) 300 mg BEDTIME ORAL 10/06/18 21:00 11/05/18 20:59 10/09/18 21:01 Heparin Sodium (Porcine) (Heparin 5000 units/ml) 5,000 units EVERY 12 HOURS SUBQ 10/07/18 21:00 11/06/18 20:59 10/09/18 21:04 Hydralazine HCl (Apresoline) 25 mg Q6H PRN ORAL SBP > 160mmHg 10/06/18 15:30 11/05/18 15:29 Insulin Aspart (NovoLOG) BEFORE MEALS AND HS SUBQ 10/06/18 21:00 11/05/18 20:59 10/10/18 11:28 Insulin Aspart (NovoLOG) 5 units BEFORE MEALS SUBQ 10/07/18 06:30 11/06/18 06:29 10/10/18 11:27 Insulin Detemir (Levemir) 12 units Q12HR SUBQ 10/10/18 09:00 11/09/18 08:59 10/10/18 08:54 Iopamidol (Isovue-370 150ml) 150 ml NOW PRN INJ Radiology Procedure 10/08/18 16:00 10/10/18 15:50 Iron Sucrose 100 mg/Sodium Chloride 55 ml @ 200 mls/hr BEDTIME IV 10/10/18 21:00 10/12/18 21:17 Isosorbide Mononitrate (Imdur) 30 mg DAILY ORAL 10/09/18 09:00 11/08/18 08:59 10/09/18 09:07 Levothyroxine Sodium (Synthroid) 50 mcg ACBREAKFAST ORAL 10/07/18 06:30 11/06/18 06:29 10/10/18 06:25 Lisinopril (Prinivil) 20 mg DAILY ORAL 10/07/18 09:00 11/06/18 08:59 10/09/18 09:10 Metoprolol Tartrate (Lopressor) 100 mg EVERY 12 HOURS ORAL 10/07/18:00 11/05/18 20:59 10/09/18 21:00 Nifedipine (Procardia XL) 60 mg DAILY ORAL 10/08/18 09:00 11/06/18 08:59 10/09/18 09:07 Ondansetron HCl (Zofran) 4 mg Q6H PRN ORAL Nausea & Vomiting 10/06/18 16:45 11/05/18 16:44 10/08/18 17:26 Pantoprazole (Protonix) 40 mg DAILY ORAL 10/06/18 17:00 11/05/18 16:59 10/10/18 08:32 Sennosides (Senokot) 8.6 mg DAILY ORAL 10/07/18 09:00 11/06/18 08:59 10/10/18 08:32 Sevelamer Carbonate (Renvela) 2,400 mg THREE TIMES A DAY ORAL 10/09/18 18:00 11/07/18 12:59 10/10/18 13:39 Tramadol HCl (Ultram) 50 mg Q6H PRN ORAL For Pain 10/06/18 16:45 10/13/18 16:44 Brandon Herbert MD Oct 10, 2018 14:15
--- NOTE | 2018-10-10 14:28 | General Progress Note ---
Assessment/Plan Problem List: (1) Diabetic nephropathy with proteinuria ICD Codes: E11.21 - Type 2 diabetes mellitus with diabetic nephropathy SNOMED: 12462764, 870070219 (2) Dyspnea ICD Codes: R06.00 - Dyspnea, unspecified SNOMED: 734786031 Qualifiers: Qualified Codes: R06.00 - Dyspnea, unspecified (3) ESRD (end stage renal disease) ICD Codes: N18.6 - End stage renal disease SNOMED: 09471381 (4) Hyperkalemia, diminished renal excretion ICD Codes: E87.5 - Hyperkalemia SNOMED: 87966844 (5) Hypertensive kidney disease ICD Codes: I12.9 - Hypertensive chronic kidney disease with stage 1 through stage 4 chronic kidney disease, or unspecified chronic kidney disease SNOMED: 25907449 (6) ACS (acute coronary syndrome) ICD Codes: I24.9 - Acute ischemic heart disease, unspecified SNOMED: 408842234 (7) Pneumonia ICD Codes: J18.9 - Pneumonia, unspecified organism SNOMED: 570289927 Status: progressing Assessment/Plan chf improved afebrile esrd on hd lyte abnormality pulm edema improved Subjective ROS Limited/Unobtainable: Yes Allergies: Coded Allergies: No Known Allergies (Unverified , 05/12/17) Objective Last 24 Hour Vital Signs Date Time Temp Pulse Resp B/P (MAP) Pulse Ox O2 Delivery O2 Flow Rate FiO2 10/10/18 13:53 Nasal Cannula 10/10/18 13:23 77 18 99 Room Air 21 10/10/18 13:11 69 18 94 Room Air 21 10/10/18 12:00 98.0 73 22 146/51 (82) 99 10/10/18 12:00 73 10/10/18 09:00 Room Air 10/10/18 09:00 150/67 10/10/18 09:00 78 150/67 10/10/18 09:00 78 150/67 10/10/18 09:00 150/67 10/10/18 08:00 98.2 78 18 150/67 (94) 96 10/10/18 08:00 76 10/10/18 07:27 71 18 99 Room Air 21 10/10/18 07:23 Room Air 21 10/10/18 07:23 97 Room Air 21 10/10/18 07:16 73 16 95 Room Air 21 10/10/18 04:00 71 10/10/18 04:00 97.6 70 18 122/44 (70) 99 10/10/18 00:58 72 18 99 Room Air 21 10/10/18 00:47 69 18 97 Room Air 21 10/10/18 00:00 98.2 78 18 146/63 (90) 99 10/09/18 21:00 75 127/55 10/09/18 21:00 Room Air 10/09/18 20:00 78 18 100 Room Air 21 10/09/18 20:00 73 10/09/18 20:00 98.7 80 20 134/53 (80) 99 10/09/18 19:53 96 Room Air 21 10/09/18 19:53 Room Air 21 10/09/18 19:51 76 18 96 Room Air 21 10/09/18 16:00 65 10/09/18 16:00 97.3 74 18 113/52 (72) 97 Intake and Output 10/09/18 10/10/18 19:00 07:00 Intake Total 800 ml 500 ml Balance 800 ml 500 ml Intake Oral 800 ml 500 ml # Voids 1 Laboratory Tests 10/10/18 11:45: White Blood Count 3.8L, Red Blood Count 2.47L, Hemoglobin 7.4L, Hematocrit 22.4L , Mean Corpuscular Volume 91, Mean Corpuscular Hemoglobin 30.2, Mean Corpuscular Hemoglobin Concent 33.3, Red Cell Distribution Width 13.0, Platelet Count 222, Mean Platelet Volume 6.0L, Neutrophils (%) (Auto) , Lymphocytes (%) ( Auto) , Monocytes (%) (Auto) , Eosinophils (%) (Auto) , Basophils (%) (Auto) , Differential Total Cells Counted 100, Neutrophils % (Manual) 63, Lymphocytes % ( Manual) 24, Monocytes % (Manual) 7, Eosinophils % (Manual) 6H, Basophils % ( Manual) 0, Band Neutrophils 0, Platelet Estimate Adequate, Platelet Morphology Normal, Hypochromasia 1+, Sodium Level 129L, Potassium Level 4.5, Chloride Level 94L, Carbon Dioxide Level 26, Anion Gap 10, Blood Urea Nitrogen 90H, Creatinine 7.0H, Estimat Glomerular Filtration Rate 5.8, Glucose Level 171H, Calcium Level 7.1L, Ferritin 1106H, Total Bilirubin 0.4, Aspartate Amino Transf (AST/SGOT) 15, Alanine Aminotransferase (ALT/SGPT) 10L, Alkaline Phosphatase 133H, C-Reactive Protein, Quantitative 9.1H, Total Protein 6.7, Albumin 2.8L, Globulin 3.9, Albumin/Globulin Ratio 0.7L Height (Feet): 5 Height (Inches): 1.00 Weight (Pounds): 177 Neck: supple Cardiovascular: normal rate Respiratory/Chest: lungs clear Abdomen: soft Makenna Daniel MD Oct 10, 2018 14:28
[2018-10-10] MEDS ORDERED: Acetaminophen 500mg (ES) tab ORAL PRN (15:52)
[2018-10-10] MEDS ORDERED: traMADol 50mg tab ORAL PRN (15:55)
[2018-10-10 16:00] VITALS: BP 139/46
[2018-10-10] MEDS ORDERED: Isovue-370 150ml vial INJ PRN (16:00)
[2018-10-10] MEDS ORDERED: Albuterol/Ipratropium 3ml neb HHN PRN (17:15)
[2018-10-10 20:00] VITALS: BP 160/53
[2018-10-10] MEDS: Atorvastatin 20mg tab ORAL SCH (21:20)
[2018-10-10] MEDS: Levemir Flexpen SUBQ SCH (22:39)
--- NOTE | 2018-10-10 23:54 | Cardiology Progress Note ---
Assessment/Plan Assessment/Plan 1. Acute diastolic congestive heart failure, continue aggressive hemodialysis, CXR still showing CHF, continuation of diuretics and afterload reduction. 2. History of CVA/TIA, continue aspirin and atorvastatin. 3. History of diabetes mellitus. 4. History of hypertension, continue nifedipine, metoprolol and lisinopril, continue hydralazine on a p.r.n. basis. Subjective Subjective Sinus rhythm at rate of 75. Objective Last 24 Hour Vital Signs Date Time Temp Pulse Resp B/P (MAP) Pulse Ox O2 Delivery O2 Flow Rate FiO2 10/10/18 21:20 81 160/53 10/10/18 19:35 95 Room Air 21 10/10/18 19:35 82 16 95 Room Air 21 10/10/18 19:35 Room Air 10/10/18 19:33 79 18 100 Room Air 21 10/10/18 16:00 98.0 77 18 139/46 (77) 97 10/10/18 13:53 Nasal Cannula 10/10/18 13:23 77 18 99 Room Air 10/10/18 13:11 69 18 94 Room Air 10/10/18 12:00 98.0 73 22 146/51 (82) 99 10/10/18 12:00 73 10/10/18 09:00 Room Air 10/10/18 09:00 150/67 10/10/18 09:00 78 150/67 10/10/18 09:00 78 150/67 10/10/18 09:00 150/67 10/10/18 08:00 98.2 78 18 150/67 (94) 96 10/10/18 08:00 76 10/10/18 07:27 71 18 99 Room Air 21 10/10/18 07:23 Room Air 10/10/18 07:23 97 Room Air 21 10/10/18 07:16 73 16 95 Room Air 10/10/18 04:00 71 10/10/18 04:00 97.6 70 18 122/44 (70) 99 10/10/18 00:58 72 18 99 Room Air 21 10/10/18 00:47 69 18 97 Room Air 21 10/10/18 00:00 98.2 78 18 146/63 (90) 99 Intake and Output 10/09/18 10/10/18 19:00 07:00 Intake Total 800 ml 500 ml Balance 800 ml 500 ml Intake Oral 800 ml 500 ml # Voids 1 2D Echo: EF55%, Mild LVH, YUDELKA, Mild MR/AR, RAP~15mmHg, RVSP 55mmHg, Grade II LVDD Laboratory Tests Test 10/10/18 11:45 White Blood Count 3.8 K/UL (4.8-10.8) L Red Blood Count 2.47 M/UL (4.20-5.40) L Hemoglobin 7.4 G/DL (12.0-16.0) L Hematocrit 22.4 % (37.0-47.0) L Mean Corpuscular Volume 91 FL (80-99) Mean Corpuscular Hemoglobin 30.2 PG (27.0-31.0) Mean Corpuscular Hemoglobin Concent 33.3 G/DL (32.0-36.0) Red Cell Distribution Width 13.0 % (11.6-14.8) Platelet Count 222 K/UL (150-450) Mean Platelet Volume 6.0 FL (6.5-10.1) L Neutrophils (%) (Auto) % (45.0-75.0) Lymphocytes (%) (Auto) % (20.0-45.0) Monocytes (%) (Auto) % (1.0-10.0) Eosinophils (%) (Auto) % (0.0-3.0) Basophils (%) (Auto) % (0.0-2.0) Differential Total Cells Counted 100 Neutrophils % (Manual) 63 % (45-75) Lymphocytes % (Manual) 24 % (20-45) Monocytes % (Manual) 7 % (1-10) Eosinophils % (Manual) 6 % (0-3) H Basophils % (Manual) 0 % (0-2) Band Neutrophils 0 % (0-8) Platelet Estimate Adequate Platelet Morphology Normal Hypochromasia 1+ Sodium Level 129 MMOL/L (136-145) L Potassium Level 4.5 MMOL/L (3.5-5.1) Chloride Level 94 MMOL/L (98-107) L Carbon Dioxide Level 26 MMOL/L (21-32) Anion Gap 10 mmol/L (5-15) Blood Urea Nitrogen 90 mg/dL (7-18) H Creatinine 7.0 MG/DL (0.55-1.30) H Estimat Glomerular Filtration Rate 5.8 mL/min (>60) Glucose Level 171 MG/DL (74-106) H Calcium Level 7.1 MG/DL (8.5-10.1) L Ferritin 1106 NG/ML (8-388) H Total Bilirubin 0.4 MG/DL (0.2-1.0) Aspartate Amino Transf (AST/SGOT) 15 U/L (15-37) Alanine Aminotransferase (ALT/SGPT) 10 U/L (12-78) L Alkaline Phosphatase 133 U/L (46-116) H C-Reactive Protein, Quantitative 9.1 mg/dL (0.00-0.90) H Total Protein 6.7 G/DL (6.4-8.2) Albumin 2.8 G/DL (3.4-5.0) L Globulin 3.9 g/dL Albumin/Globulin Ratio 0.7 (1.0-2.7) L Objective HEENT: Atraumatic and normocephalic. Anicteric. Pupils are equal, round, and reactive to light and accommodation. Extraocular muscles intact. NECK: JVP less than 5 cm. No carotid bruit. Carotid upstrokes 2+ bilaterally. CARDIOVASCULAR: Normal S1, S2. Regular rate and rhythm. No murmurs, gallops, or rubs. PMI is at fourth intercostal space in the midclavicular line. LUNGS: Clear to auscultation bilaterally. ABDOMEN: Soft, nontender, and nondistended. No hepatosplenomegaly. Positive bowel sounds. EXTREMITIES: No evidence of edema, clubbing, or cyanosis. Zev Alfonso MD Oct 10, 2018 23:54
[2018-10-11] MEDS: Albuterol/Ipratropium 3ml neb HHN SCH ×3 (00:05→13:00)
[2018-10-11 00:59] VITALS: BP 152/72
--- NOTE | 2018-10-11 01:31 | Geriatric Medicine Prog Note ---
DATE: 10/10/2018 NOTE: POOR AUDIO SUBJECTIVE: The patient diabetic control. OBJECTIVE: VITAL SIGNS: Blood pressure is 134/53, pulse 80, respirations 18, temperature 98.7. LUNGS: Clear. CVS: Regular. Glucose 184. Symptoms, good control. 40 units t.i.d. before meals. Increase . Phong Joyce M.D. DR: KIANA JOB#: [id number] CC:
[2018-10-11 04:59] VITALS: BP 166/58
[2018-10-11] MEDS: HydrALAZINE 25mg tab ORAL PRN ×2 (05:48→13:53)
--- NOTE | 2018-10-11 06:37 | General Progress Note ---
Assessment/Plan Problem List: (1) Diabetic nephropathy with proteinuria ICD Codes: E11.21 - Type 2 diabetes mellitus with diabetic nephropathy SNOMED: 25908293, 832734203 (2) ESRD (end stage renal disease) ICD Codes: N18.6 - End stage renal disease SNOMED: 24061556 (3) Hyperkalemia, diminished renal excretion ICD Codes: E87.5 - Hyperkalemia SNOMED: 63458410 Assessment/Plan continue Levemir 12 units bid continue Novolog 5 units ac tid + NISS continue Levothyroxine 50 mcg daily Subjective Allergies: Coded Allergies: No Known Allergies (Unverified , 05/12/17) All Systems: reviewed and negative except above Subjective events noted Item Value Date Time Bedside Blood Glucose 214 mg/dl H 10/10/18 2239 Bedside Blood Glucose 152 mg/dl H 10/10/18 1744 Bedside Blood Glucose 185 mg/dl H 10/10/18 1130 Bedside Blood Glucose 241 mg/dl H 10/10/18 0854 Bedside Blood Glucose 228 mg/dl H 10/10/18 0637 Objective Last 24 Hour Vital Signs Date Time Temp Pulse Resp B/P (MAP) Pulse Ox O2 Delivery O2 Flow Rate FiO2 10/11/18 05:48 166/58 10/11/18 04:59 97.9 73 18 166/58 (94) 97 10/11/18 00:59 98.8 86 18 152/72 (98) 98 10/11/18 00:09 75 18 99 Room Air 21 10/11/18 00:00 75 20 95 Room Air 21 10/10/18 21:20 81 160/53 10/10/18 21:00 Room Air 10/10/18 20:00 98.3 81 18 160/53 (88) 95 10/10/18 19:35 95 Room Air 21 10/10/18 19:35 82 16 95 Room Air 21 10/10/18 19:35 Room Air 21 10/10/18 19:33 79 18 100 Room Air 21 10/10/18 16:00 98.0 77 18 139/46 (77) 97 10/10/18 13:53 Nasal Cannula 10/10/18 13:23 77 18 99 Room Air 21 10/10/18 13:11 69 18 94 Room Air 21 10/10/18 12:00 98.0 73 22 146/51 (82) 99 10/10/18 12:00 73 10/10/18 09:00 Room Air 10/10/18 09:00 150/67 10/10/18 09:00 78 150/67 10/10/18 09:00 78 150/67 10/10/18 09:00 150/67 10/10/18 08:00 98.2 78 18 150/67 (94) 96 10/10/18 08:00 76 10/10/18 07:27 71 18 99 Room Air 21 10/10/18 07:23 Room Air 21 10/10/18 07:23 97 Room Air 21 10/10/18 07:16 73 16 95 Room Air 21 Intake and Output 10/10/18 10/11/18 18:59 06:59 Intake Total 600 ml Output Total 3000 ml Balance -3000 ml 600 ml Other 600 ml Hemodialysis UF 3000 ml Laboratory Tests 10/10/18 11:45: White Blood Count 3.8L, Red Blood Count 2.47L, Hemoglobin 7.4L, Hematocrit 22.4L , Mean Corpuscular Volume 91, Mean Corpuscular Hemoglobin 30.2, Mean Corpuscular Hemoglobin Concent 33.3, Red Cell Distribution Width 13.0, Platelet Count 222, Mean Platelet Volume 6.0L, Neutrophils (%) (Auto) , Lymphocytes (%) ( Auto) , Monocytes (%) (Auto) , Eosinophils (%) (Auto) , Basophils (%) (Auto) , Differential Total Cells Counted 100, Neutrophils % (Manual) 63, Lymphocytes % ( Manual) 24, Monocytes % (Manual) 7, Eosinophils % (Manual) 6H, Basophils % ( Manual) 0, Band Neutrophils 0, Platelet Estimate Adequate, Platelet Morphology Normal, Hypochromasia 1+, Sodium Level 129L, Potassium Level 4.5, Chloride Level 94L, Carbon Dioxide Level 26, Anion Gap 10, Blood Urea Nitrogen 90H, Creatinine 7.0H, Estimat Glomerular Filtration Rate 5.8, Glucose Level 171H, Calcium Level 7.1L, Ferritin 1106H, Total Bilirubin 0.4, Aspartate Amino Transf (AST/SGOT) 15, Alanine Aminotransferase (ALT/SGPT) 10L, Alkaline Phosphatase 133H, C-Reactive Protein, Quantitative 9.1H, Total Protein 6.7, Albumin 2.8L, Globulin 3.9, Albumin/Globulin Ratio 0.7L Height (Feet): 5 Height (Inches): 1.00 Weight (Pounds): 177 General Appearance: no apparent distress Neck: normal alignment Cardiovascular: normal rate Respiratory/Chest: lungs clear Abdomen: normal bowel sounds Objective Current Medications Medications (Trade) Dose Ordered Sig/Toya Route PRN Reason Start Time Stop Time Status Last Admin Dose Admin Acetaminophen (Tylenol) 500 mg Q6H PRN ORAL Prn Headache/Temp > 101 10/10/18 15:52 11/05/18 15:51 Albuterol/ Ipratropium (Albuterol/ Ipratropium) 3 ml Q4H PRN HHN Shortness of Breath 10/10/18 17:15 10/11/18 17:14 Albuterol/ Ipratropium (Albuterol/ Ipratropium) 3 ml Q6HRT HHN 10/10/18 19:00 10/11/18 18:59 10/11/18 00:05 Aspirin (ASA) 81 mg DAILY ORAL 10/11/18 09:00 11/06/18 08:59 Atorvastatin Calcium (Lipitor) 40 mg BEDTIME ORAL 10/10/18 21:00 11/05/18 20:59 10/10/18 21:20 Dextrose (Dextrose 50%) 25 ml Q30M PRN IV Hypoglycemia 10/10/18 16:15 11/05/18 19:44 Dextrose (Dextrose 50%) 50 ml Q30M PRN IV Hypoglycemia 10/10/18 16:15 11/05/18 19:44 Docusate Sodium (Colace) 100 mg TID ORAL 10/10/18 18:00 11/05/18 17:59 10/10/18 17:40 Epoetin Panchito (Epoetin Panchito(ESRD on dialysis)) 10,000 unit THU-THU-THU SUBQ 10/11/18 21:00 11/07/18 20:59 Folic Acid (Folate) 1 mg DAILY ORAL 10/11/18 09:00 11/06/18 08:59 Gabapentin (Neurontin) 100 mg THREE TIMES A DAY ORAL 10/10/18 18:00 11/05/18 17:59 10/10/18 17:40 Gabapentin (Neurontin) 300 mg BEDTIME ORAL 10/10/18 21:00 11/05/18 20:59 10/10/18 21:20 Heparin Sodium (Porcine) (Heparin 5000 units/ml) 5,000 units EVERY 12 HOURS SUBQ 10/10/18 21:00 11/06/18 20:59 Hydralazine HCl (Apresoline) 25 mg Q6H PRN ORAL SBP > 160mmHg 10/10/18 15:53 11/05/18 15:52 10/11/18 05:48 Insulin Aspart (NovoLOG) BEFORE MEALS AND HS SUBQ 10/10/18 16:30 11/05/18 20:59 10/10/18 22:38 Insulin Aspart (NovoLOG) 5 units BEFORE MEALS SUBQ 10/10/18 16:30 11/06/18 06:29 10/10/18 17:44 Insulin Detemir (Levemir) 12 units Q12HR SUBQ 10/10/18 21:00 11/09/18 08:59 10/10/18 22:39 Iron Sucrose 100 mg/Sodium Chloride 55 ml @ 200 mls/hr BEDTIME IV 10/10/18 21:00 10/12/18 21:17 Isosorbide Mononitrate (Imdur) 30 mg DAILY ORAL 10/11/18 09:00 11/08/18 08:59 Levothyroxine Sodium (Synthroid) 50 mcg ACBREAKFAST ORAL 10/11/18 06:30 11/06/18 06:29 10/11/18 05:48 Lisinopril (Prinivil) 20 mg DAILY ORAL 10/11/18 09:00 11/06/18 08:59 Metoprolol Tartrate (Lopressor) 100 mg EVERY 12 HOURS ORAL 10/10/18 21:00 11/05/18 20:59 10/10/18 21:20 Nifedipine (Procardia XL) 60 mg DAILY ORAL 10/11/18 09:00 11/06/18 08:59 Ondansetron HCl (Zofran) 4 mg Q6H PRN ORAL Nausea & Vomiting 10/10/18 16:45 11/05/18 16:44 Pantoprazole (Protonix) 40 mg DAILY ORAL 10/11/18 09:00 11/05/18 16:59 Sennosides (Senokot) 8.6 mg DAILY ORAL 10/11/18 09:00 11/06/18 08:59 Sevelamer Carbonate (Renvela) 2,400 mg THREE TIMES A DAY ORAL 10/10/18 18:00 11/07/18 12:59 10/10/18 17:40 Tramadol HCl (Ultram) 50 mg Q6H PRN ORAL For Pain 10/10/18 15:55 10/13/18 15:54 Lavell Archer MD Oct 11, 2018 06:37
[2018-10-11] MEDS: NovoLOG Insulin Flexpen SUBQ SCH ×7 (06:47→21:00)
[2018-10-11 08:00] VITALS: BP 158/62
[2018-10-11] MEDS: Aspirin Baby 81mg ORAL SCH (09:00)
[2018-10-11] MEDS: Sennosides 8.6mg tab ORAL SCH (09:00)
[2018-10-11] MEDS: Docusate 100mg cap ORAL SCH ×3 (09:00→17:09)
[2018-10-11] MEDS: Heparin 5000 units/ml inj SUBQ SCH ×2 (09:00→20:01)
[2018-10-11] MEDS: Imdur 30mg tab ORAL SCH (10:38)
[2018-10-11] MEDS: Lisinopril 20mg tab ORAL SCH (10:40)
[2018-10-11] MEDS: Levemir Flexpen SUBQ SCH ×2 (11:07→21:55)
--- NOTE | 2018-10-11 11:08 | Pulmonology Progress Note ---
Assessment/Plan Assessment/Plan ASSESSMENT: The patient is a 68-year-old female presenting with shortness of breath in the setting of decompensated heart failure and missed dialysis. PROBLEM LIST: 1. Shortness of breath in the setting of volume overload and missed dialysis. 2. End-stage renal disease on dialysis presenting with missed dialysis. 3. Hyperkalemia secondary to above. 4. Bilateral pulmonary airspace opacities noted on chest x-ray, likely edema. 5. Diabetes, hypertension, hyperlipidemia, GERD. 6. Obesity. 7. CHF with DD 8. Moderate (1.4 cm2) TREATMENT PLAN: 1. Optimize pulmonary hygiene/mobilize as tolerated. 2. PRN O2 3. Monitor volumes and renal function. Dialysis per Renal with UF as able. 4. Defer w/u of acute anemia to PMD, consider GI eval 5. F/U cardiology recs 6. DVT prophylaxis: Hep SQ 7. The patient should have a sleep study as an outpatient. 8. CT-A reviewed, diffuse mild GGO's likely represent edema, radiologist comments on spiculation @ L base, there is atx @ the base but no definite spiculation on my review? Will need a repeat CT in 4-6 weeks 9. Weight loss, diet, and exercise discussed. Subjective Allergies: Coded Allergies: No Known Allergies (Unverified , 05/12/17) Subjective AFVSS on RA CT-A reviewed No cough no SOB no PND no orthopnea no CP no FC Hb 7.4 and dark stool Objective Last 24 Hour Vital Signs Date Time Temp Pulse Resp B/P (MAP) Pulse Ox O2 Delivery O2 Flow Rate FiO2 10/11/18 10:40 78 158/62 10/11/18 10:40 158/62 10/11/18 10:39 78 158/62 10/11/18 10:38 158/62 10/11/18 07:50 77 18 99 Room Air 21 10/11/18 07:40 Room Air 21 10/11/18 07:40 99 Room Air 21 10/11/18 07:40 74 20 99 Room Air 21 10/11/18 05:48 166/58 10/11/18 04:59 97.9 73 18 166/58 (94) 97 10/11/18 00:59 98.8 86 18 152/72 (98) 98 10/11/18 00:09 75 18 99 Room Air 21 10/11/18 00:00 75 20 95 Room Air 21 10/10/18 21:20 81 160/53 10/10/18 21:00 Room Air 10/10/18 20:00 98.3 81 18 160/53 (88) 95 10/10/18 19:35 95 Room Air 21 10/10/18 19:35 82 16 95 Room Air 21 10/10/18 19:35 Room Air 21 10/10/18 19:33 79 18 100 Room Air 21 10/10/18 16:00 98.0 77 18 139/46 (77) 97 10/10/18 13:53 Nasal Cannula 10/10/18 13:23 77 18 99 Room Air 21 10/10/18 13:11 69 18 94 Room Air 21 10/10/18 12:00 98.0 73 22 146/51 (82) 99 10/10/18 12:00 73 Intake and Output 10/10/18 10/11/18 18:59 06:59 Intake Total 600 ml Output Total 3000 ml Balance -3000 ml 600 ml Other 600 ml Hemodialysis UF 3000 ml General Appearance: WD/WN, no acute distress HEENT: normocephalic, atraumatic, anicteric, mucous membranes moist Respiratory/Chest: chest wall non-tender, lungs clear, normal breath sounds, no respiratory distress, no accessory muscle use Cardiovascular: normal peripheral pulses, normal rate, regular rhythm Abdomen: normal bowel sounds, soft, non tender, no organomegaly, non distended , no mass Extremities: no cyanosis, no clubbing, no edema Laboratory Tests 10/10/18 11:45: White Blood Count 3.8L, Red Blood Count 2.47L, Hemoglobin 7.4L, Hematocrit 22.4L , Mean Corpuscular Volume 91, Mean Corpuscular Hemoglobin 30.2, Mean Corpuscular Hemoglobin Concent 33.3, Red Cell Distribution Width 13.0, Platelet Count 222, Mean Platelet Volume 6.0L, Neutrophils (%) (Auto) , Lymphocytes (%) ( Auto) , Monocytes (%) (Auto) , Eosinophils (%) (Auto) , Basophils (%) (Auto) , Differential Total Cells Counted 100, Neutrophils % (Manual) 63, Lymphocytes % ( Manual) 24, Monocytes % (Manual) 7, Eosinophils % (Manual) 6H, Basophils % ( Manual) 0, Band Neutrophils 0, Platelet Estimate Adequate, Platelet Morphology Normal, Hypochromasia 1+, Sodium Level 129L, Potassium Level 4.5, Chloride Level 94L, Carbon Dioxide Level 26, Anion Gap 10, Blood Urea Nitrogen 90H, Creatinine 7.0H, Estimat Glomerular Filtration Rate 5.8, Glucose Level 171H, Calcium Level 7.1L, Ferritin 1106H, Total Bilirubin 0.4, Aspartate Amino Transf (AST/SGOT) 15, Alanine Aminotransferase (ALT/SGPT) 10L, Alkaline Phosphatase 133H, C-Reactive Protein, Quantitative 9.1H, Total Protein 6.7, Albumin 2.8L, Globulin 3.9, Albumin/Globulin Ratio 0.7L Current Medications Medications (Trade) Dose Ordered Sig/Toya Route PRN Reason Start Time Stop Time Status Last Admin Dose Admin Acetaminophen (Tylenol) 500 mg Q6H PRN ORAL Prn Headache/Temp > 101 10/10/18 15:52 11/05/18 15:51 Albuterol/ Ipratropium (Albuterol/ Ipratropium) 3 ml Q4H PRN HHN Shortness of Breath 10/10/18 17:15 10/11/18 17:14 Albuterol/ Ipratropium (Albuterol/ Ipratropium) 3 ml Q6HRT HHN 10/10/18 19:00 10/11/18 18:59 10/11/18 09:23 Aspirin (ASA) 81 mg DAILY ORAL 10/11/18 09:00 11/06/18 08:59 Atorvastatin Calcium (Lipitor) 40 mg BEDTIME ORAL 10/10/18 21:00 11/05/18 20:59 10/10/18 21:20 Dextrose (Dextrose 50%) 25 ml Q30M PRN IV Hypoglycemia 10/10/18 16:15 11/05/18 19:44 Dextrose (Dextrose 50%) 50 ml Q30M PRN IV Hypoglycemia 10/10/18 16:15 11/05/18 19:44 Docusate Sodium (Colace) 100 mg TID ORAL 10/10/18 18:00 11/05/18 17:59 10/10/18 17:40 Epoetin Panchito (Epoetin Panchito(ESRD on dialysis)) 10,000 unit THU-THU-THU SUBQ 10/11/18 21:00 11/07/18 20:59 Folic Acid (Folate) 1 mg DAILY ORAL 10/11/18 09:00 11/06/18 08:59 10/11/18 10:39 Gabapentin (Neurontin) 100 mg THREE TIMES A DAY ORAL 10/10/18 18:00 11/05/18 17:59 10/11/18 10:37 Gabapentin (Neurontin) 300 mg BEDTIME ORAL 10/10/18 21:00 11/05/18 20:59 10/10/18 21:20 Heparin Sodium (Porcine) (Heparin 5000 units/ml) 5,000 units EVERY 12 HOURS SUBQ 10/10/18 21:00 11/06/18 20:59 Hydralazine HCl (Apresoline) 25 mg Q6H PRN ORAL SBP > 160mmHg 10/10/18 15:53 11/05/18 15:52 10/11/18 05:48 Insulin Aspart (NovoLOG) BEFORE MEALS AND HS SUBQ 10/10/18 16:30 11/05/18 20:59 10/11/18 06:47 Insulin Aspart (NovoLOG) 5 units BEFORE MEALS SUBQ 10/10/18 16:30 11/06/18 06:29 10/11/18 06:47 Insulin Detemir (Levemir) 12 units Q12HR SUBQ 10/10/18 21:00 11/09/18 08:59 10/10/18 22:39 Iron Sucrose 100 mg/Sodium Chloride 55 ml @ 200 mls/hr BEDTIME IV 10/10/18 21:00 10/12/18 21:17 Isosorbide Mononitrate (Imdur) 30 mg DAILY ORAL 10/11/18 09:00 11/08/18 08:59 10/11/18 10:38 Levothyroxine Sodium (Synthroid) 50 mcg ACBREAKFAST ORAL 10/11/18 06:30 11/06/18 06:29 10/11/18 05:48 Lisinopril (Prinivil) 20 mg DAILY ORAL 10/11/18 09:00 11/06/18 08:59 10/11/18 10:40 Metoprolol Tartrate (Lopressor) 100 mg EVERY 12 HOURS ORAL 10/10/18 21:00 11/05/18 20:59 10/11/18 10:40 Nifedipine (Procardia XL) 60 mg DAILY ORAL 10/11/18 09:00 11/06/18 08:59 10/11/18 10:39 Ondansetron HCl (Zofran) 4 mg Q6H PRN ORAL Nausea & Vomiting 10/10/18 16:45 11/05/18 16:44 Pantoprazole (Protonix) 40 mg DAILY ORAL 10/11/18 09:00 11/05/18 16:59 10/11/18 10:40 Sennosides (Senokot) 8.6 mg DAILY ORAL 10/11/18 09:00 11/06/18 08:59 Sevelamer Carbonate (Renvela) 2,400 mg THREE TIMES A DAY ORAL 10/10/18 18:00 11/07/18 12:59 10/11/18 10:37 Tramadol HCl (Ultram) 50 mg Q6H PRN ORAL For Pain 10/10/18 15:55 10/13/18 15:54 Mauri Mabry MD Oct 11, 2018 11:08
[2018-10-11 11:20] LABS: BASOPHILS % (AUTO) 1.1 % (0.0-2.0); EOSINOPHILS % (AUTO) 3.7 % (0.0-3.0); HEMATOCRIT 30.5 % (37.0-47.0); LYMPHOCYTES % (AUTO) 18.2 % (20.0-45.0); MEAN CORPUSCULAR VOLUME 91 FL (80-99); MONOCYTES % (AUTO) 10.8 % (1.0-10.0); NEUTROPHILS % (AUTO) 66.2 % (45.0-75.0); PLATELET COUNT 237 K/UL (150-450); RED BLOOD COUNT 3.35 M/UL (4.20-5.40); RED CELL DISTRIBUTION WIDTH 13.3 % (11.6-14.8); WHITE BLOOD COUNT 4.5 K/UL (4.8-10.8)
--- NOTE | 2018-10-11 11:51 | GI Initial Consult Note ---
History of Present Illness General Date patient seen: Oct 11, 2018 Time patient seen: 11:48 Reason for Hospitalization: Dyspnea/Respdistress Referring physician: ELIS GILLIAM Reason for Consultation: ANEMIA Present Illness HPI 68-year-old female presents ED for evaluation. Patient complaining of shortness of breath and chest pain since last night. States she has history of end-stage renal disease. Gets dialysis Thursday. Has missed dialysis since last Thursday because "not feeling well". Pain is sharp, 5 out of 10, nonradiating. Denies fevers or chills. Denies nausea or vomiting. No other aggravating relieving factors. Denies any other associated symptoms GI consulted for reported melena. The patient was scheduled for discharge last Thursday, reported melena received blood transfusion. Pt seen, awake A&Ox4 NAD, ambulatory with no active s/sx of N/V/D. The patient her last EGD/colonoscopy was approximately 4-5 years ago and unsure of the result. Labs reviewed; white count 4.5, hemoglobin 10.0 status post transfusion, pending current CMP. Home Meds Active Scripts Tramadol Hcl* (ULTRAM*) 50 Mg Tablet, 50 MG ORAL Q6H PRN for For Pain for 3 Days , TAB 0 Refills Prov:Kd Ware MD 08/04/18 Acetaminophen* (TYLENOL EXTRA STRENGTH*) 500 Mg Tablet, 500 MG ORAL Q8H PRN for Prn Headache/Temp > 101, #30 TAB 0 Refills Prov:Kd Ware MD 08/04/18 Reported Medications Labetalol HCl (Labetalol HCl) 100 Mg Tablet, 100 MG ORAL BID, TAB 10/06/18 Furosemide* (LASIX*) 20 Mg Tablet, 20 MG ORAL BID, TAB 10/06/17 Isosorbide Mononitrate (ISOSORBIDE MONONITRATE ER) 60 Mg Tab.er.24h, 60 MG PO DAILY, TAB 10/06/17 Nifedipine (Nifedipine*) 20 Mg Capsule, 90 MG ORAL DAILY, CAP 10/06/17 Hydralazine HCl (Hydralazine HCl) 25 Mg Tablet, 25 MG PO Q6HR PRN for prn, TAB 10/06/17 Atorvastatin Calcium* (ATORVASTATIN CALCIUM*) 40 Mg Tablet, 80 MG ORAL BEDTIME, TAB 10/06/17 Gabapentin (Neurontin) 300 Mg Capsule, 300 MG ORAL THREE TIMES A DAY, #15 CAP 0 Refills 10/06/17 Ferrous Sulfate (FERROUS SULFATE) 325 Mg Tablet.dr, 325 MG ORAL DAILY, #30 TAB 0 Refills 10/06/17 Calcium Carbonate/Vitamin D3 (OYSTER SHELL 500 MG + VIT D TB) 1 Each Tablet, 1 EACH PO DAILY, TAB 10/06/17 Levothyroxine Sodium (LEVOTHYROXINE SODIUM) 137 Mcg Tablet, 137 MCG ORAL DAILY, TAB Take in the morning on an empty stomach, at least 30 minutes before food. 10/06/17 Unable to Obtain Medications (UNABLE TO OBTAIN MEDS) 1 Ea Ea 10/05/17 Epoetin Panchito (Epogen) 10,000 Unit/1 Ml Vial, 98833 UNIT SUBQ 3XW, VIAL 07/08/17 Acetaminophen* (ACETAMINOPHEN 325MG TABLET*) 325 Mg Tablet, 325 MG ORAL Q4H PRN for MILD PAIN 06/08/17 Sennosides (SENNA) 8.6 Mg Tablet, 8.6 MG PO DAILY for HOLD FOR LBM 06/08/17 Ondansetron* (ZOFRAN*) 4 Mg Tablet, 4 MG ORAL Q6H PRN for Nausea & Vomiting 06/08/17 Nifedipine Er* (ADALAT CC*) 90 Mg Tablet.er, 90 MG ORAL DAILY for HOLD IF BP < 110 Do not chew or crush tablet 06/08/17 Vit B Cmplx 3/Fa/Vit C/Biotin (NEPHRO-MELLY RX TABLET) 1 Each Tablet, 1 EACH PO DAILY 06/08/17 Metoprolol Tartrate* (METOPROLOL TARTRATE*) 50 Mg Tablet, 50 MG ORAL EVERY 12 HOURS 06/08/17 Lisinopril (LISINOPRIL*) 20 Mg Tablet, 20 MG ORAL DAILY for HOLD IF SBP>110 OR PULSE<60 06/08/17 Isosorbide Mononitrate (ISOSORBIDE MONONITRATE ER) 60 Mg Tab.er.24h, 180 MG PO DAILY for FOR ANGINA 06/08/17 Hydrocodone Bit/Acetaminophen 5-325* (NORCO 5-325 TABLET*) 1 Each Tablet, 1 TAB ORAL Q4H PRN for MODERATE TO SEVERE PAIN 06/08/17 Insulin Regular, Human (HUMULIN R) 100 Unit/1 Ml Vial, 0 SUBQ for SLIDING SCALE 06/08/17 Gabapentin* (GABAPENTIN*) 300 Mg Capsule, 300 MG ORAL BEDTIME 06/08/17 Levothyroxine Sodium* (LEVOTHYROXINE SODIUM*) 50 Mcg Tablet, 50 MCG ORAL DAILY, TAB Take in the morning on an empty stomach, at least 30 minutes before food. 06/08/17 Insulin Detemir (LEVEMIR) 100 Unit/1 Ml Vial, 15 SUBQ Q12HR, VIAL 06/08/17 Lansoprazole* (LANSOPRAZOLE*) 30 Mg Capsule.dr, 30 MG ORAL DAILY, CAP 06/08/17 Folic Acid* (FOLIC ACID*) 1 Mg Tablet, 1 MG ORAL DAILY, TAB 06/08/17 Docusate Sodium* (DOCUSATE SODIUM*) 100 Mg Capsule, 100 MG ORAL DAILY, CAP 06/08/17 Atorvastatin Calcium* (ATORVASTATIN CALCIUM*) 40 Mg Tablet, 40 MG ORAL BEDTIME, TAB 06/08/17 Med list reviewed/reconciled: Yes Allergies: Coded Allergies: No Known Allergies (Unverified , 05/12/17) Patient History History Provided By: Patient, Medical Record PMH Narrative Past Medical History: DM, HTN, asthma, CVA/TIA, renal disease, dialysis Pertinent Family History: none Social History: Denies: smoking, alcohol use, drug use Last Menstrual Period: na Now: No Immunizations: UTD Reviewed Nursing Documentation: PMH: Agreed; PSxH: Agreed Nursing Documentation-PMH Past Medical History: No History, Except For Hx Cardiac Problems: Yes Hx Hypertension: Yes Hx Pacemaker: No Hx Asthma: Yes Hx COPD: No Hx Diabetes: Yes - TYPE 2 DIABETES MELLITUS Hx Cancer: No Hx Gastrointestinal Problems: No Hx Dialysis: Yes Hx Neurological Problems: No Hx Transient Ischemic Attacks: Yes - ACUTE ISCHEMIC HEART DISEASE Hx Dementia: No Hx Alzheimer's Disease: No Hx Parkinson's Disease: No Hx Meningitis: No Hx Encephalitis: No Hx Seizures: No Hx Epilepsy: No Hx Multiple Sclerosis: No Hx Cerebral Palsy: No Hx Amyotrophic Lat Sclerosis: No Hx Guillian-Parrish Syndrome: No Hx Paralysis: No Hx Peripheral Neuropathy: No Hx Spinal Cord Injury: No Hx Head Trauma: No Hx Traumatic Brain Injury: No Hx Memory Loss: No Hx Concentration Difficulty: No Hx Speech Problem: No Hx Tremors: No Hx Vertigo: No Hx Dizziness: No Hx Syncope: No Hx Headaches: No Hx Aphasia: No Hx Dysphasia: No Hx Numbness: No Hx Weakness: Yes - MUSCLE WEAKNESS Hx Fatigue: No Hx Neurologic Surgery: No Hx Brain Shunt: No Social History: Denies: smoking, alcohol use, drug use, other Review of Systems All Other Systems: negative except mentioned in HPI Physical Exam Vital Signs Date Time Temp Pulse Resp B/P (MAP) Pulse Ox O2 Delivery O2 Flow Rate FiO2 10/07/18 07:28 Room Air 21 10/07/18 07:28 89 10/07/18 08:00 98 10/07/18 08:40 99.3 16 151/63 (92) 10/07/18 09:00 3.0 Sp02 EP Interpretation: reviewed, normal Labs Laboratory Tests Test 10/11/18 10:40 White Blood Count 4.5 K/UL (4.8-10.8) L Red Blood Count 3.35 M/UL (4.20-5.40) L Hemoglobin 10.0 G/DL (12.0-16.0) #L Hematocrit 30.5 % (37.0-47.0) #L Mean Corpuscular Volume 91 FL (80-99) Mean Corpuscular Hemoglobin 30.0 PG (27.0-31.0) Mean Corpuscular Hemoglobin Concent 33.0 G/DL (32.0-36.0) Red Cell Distribution Width 13.3 % (11.6-14.8) Platelet Count 237 K/UL (150-450) Mean Platelet Volume 6.1 FL (6.5-10.1) L Neutrophils (%) (Auto) 66.2 % (45.0-75.0) Lymphocytes (%) (Auto) 18.2 % (20.0-45.0) L Monocytes (%) (Auto) 10.8 % (1.0-10.0) H Eosinophils (%) (Auto) 3.7 % (0.0-3.0) H Basophils (%) (Auto) 1.1 % (0.0-2.0) Sodium Level Pending Potassium Level Pending Chloride Level Pending Carbon Dioxide Level Pending Blood Urea Nitrogen Pending Creatinine Pending Estimat Glomerular Filtration Rate Pending Glucose Level Pending Calcium Level Pending Phosphorus Level Pending Total Bilirubin Pending Aspartate Amino Transf (AST/SGOT) Pending Alanine Aminotransferase (ALT/SGPT) Pending Alkaline Phosphatase Pending Pro-B-Type Natriuretic Peptide Pending Total Protein Pending Albumin Pending Globulin Pending General Appearance: well appearing, no apparent distress, alert Head: normocephalic EENT: PERRL/EOMI, normal ENT inspection Neck: supple Respiratory: normal breath sounds, no respiratory distress Cardiovascular: normal rate Gastrointestinal: normal inspection, non tender, soft, normal bowel sounds, non -distended Rectal: deferred Genitourinary: no CVA tenderness Musculoskeletal: normal inspection, back normal Neurologic: normal inspection, alert, oriented x3, responsive Psychiatric: normal inspection, judgement/insight normal, memory normal Skin: normal inspection, normal color, no rash, warm/dry, palpation normal, well hydrated Lymphatic: normal inspection, no adenopathy Current Medications Current Medications Medications (Trade) Dose Ordered Sig/Toya Route PRN Reason Start Time Stop Time Status Last Admin Dose Admin Acetaminophen (Tylenol) 500 mg Q6H PRN ORAL Prn Headache/Temp > 101 10/10/18 15:52 11/05/18 15:51 Albuterol/ Ipratropium (Albuterol/ Ipratropium) 3 ml Q4H PRN HHN Shortness of Breath 10/10/18 17:15 10/11/18 17:14 Albuterol/ Ipratropium (Albuterol/ Ipratropium) 3 ml Q6HRT HHN 10/10/18 19:00 10/11/18 18:59 10/11/18 09:23 Aspirin (ASA) 81 mg DAILY ORAL 10/11/18 09:00 11/06/18 08:59 Atorvastatin Calcium (Lipitor) 40 mg BEDTIME ORAL 10/10/18 21:00 11/05/18 20:59 10/10/18 21:20 Dextrose (Dextrose 50%) 25 ml Q30M PRN IV Hypoglycemia 10/10/18 16:15 11/05/18 19:44 Dextrose (Dextrose 50%) 50 ml Q30M PRN IV Hypoglycemia 10/10/18 16:15 11/05/18 19:44 Docusate Sodium (Colace) 100 mg TID ORAL 10/10/18 18:00 11/05/18 17:59 10/10/18 17:40 Epoetin Panchito (Epoetin Panchito(ESRD on dialysis)) 10,000 unit THU-THU-THU SUBQ 10/11/18 21:00 11/07/18 20:59 Folic Acid (Folate) 1 mg DAILY ORAL 10/11/18 09:00 11/06/18 08:59 10/11/18 10:39 Gabapentin (Neurontin) 100 mg THREE TIMES A DAY ORAL 10/10/18 18:00 11/05/18 17:59 10/11/18 10:37 Gabapentin (Neurontin) 300 mg BEDTIME ORAL 10/10/18 21:00 11/05/18 20:59 10/10/18 21:20 Heparin Sodium (Porcine) (Heparin 5000 units/ml) 5,000 units EVERY 12 HOURS SUBQ 10/10/18 21:00 11/06/18 20:59 Hydralazine HCl (Apresoline) 25 mg Q6H PRN ORAL SBP > 160mmHg 10/10/18 15:53 11/05/18 15:52 10/11/18 05:48 Insulin Aspart (NovoLOG) BEFORE MEALS AND HS SUBQ 10/10/18 16:30 11/05/18 20:59 10/11/18 06:47 Insulin Aspart (NovoLOG) 5 units BEFORE MEALS SUBQ 10/10/18 16:30 11/06/18 06:29 10/11/18 06:47 Insulin Detemir (Levemir) 12 units Q12HR SUBQ 10/10/18 21:00 11/09/18 08:59 10/11/18 11:07 Iron Sucrose 100 mg/Sodium Chloride 55 ml @ 200 mls/hr BEDTIME IV 10/10/18 21:00 10/12/18 21:17 Isosorbide Mononitrate (Imdur) 30 mg DAILY ORAL 10/11/18 09:00 11/08/18 08:59 10/11/18 10:38 Levothyroxine Sodium (Synthroid) 50 mcg ACBREAKFAST ORAL 10/11/18 06:30 11/06/18 06:29 10/11/18 05:48 Lisinopril (Prinivil) 20 mg DAILY ORAL 10/11/18 09:00 11/06/18 08:59 10/11/18 10:40 Metoprolol Tartrate (Lopressor) 100 mg EVERY 12 HOURS ORAL 10/10/18 21:00 11/05/18 20:59 10/11/18 10:40 Nifedipine (Procardia XL) 60 mg DAILY ORAL 10/11/18 09:00 11/06/18 08:59 10/11/18 10:39 Ondansetron HCl (Zofran) 4 mg Q6H PRN ORAL Nausea & Vomiting 10/10/18 16:45 11/05/18 16:44 Pantoprazole (Protonix) 40 mg DAILY ORAL 10/11/18 09:00 11/05/18 16:59 10/11/18 10:40 Sennosides (Senokot) 8.6 mg DAILY ORAL 10/11/18 09:00 11/06/18 08:59 Sevelamer Carbonate (Renvela) 2,400 mg THREE TIMES A DAY ORAL 10/10/18 18:00 11/07/18 12:59 10/11/18 10:37 Tramadol HCl (Ultram) 50 mg Q6H PRN ORAL For Pain 10/10/18 15:55 10/13/18 15:54 GI: Plan Problems: (1) Black tarry stools (2) Anemia in chronic kidney disease (CKD) (3) ESRD (end stage renal disease) Plan EGD/colonoscopy scheduled for tomorrow - CLD, NPO @ [facility]. monitor H&H, prn transfusions bowel regime ppi fu labs will follow with additional recommendations post procedure Discussed with Dr. Cervantes. Thank you for this patient referral, we will follow. The patient was seen and examined at bedside and all new and available data was reviewed in the patients chart. I agree with the above findings, impression and plan. (Patient seen earlier today. Signature stamp does not reflect patient encounter time.). - MD Jenae Rutledge,[employer]ov[employer] Oct 11, 2018 11:51
--- NOTE | 2018-10-11 11:56 | Nephrology Progress Note ---
Assessment/Plan Problem List: (1) ESRD (end stage renal disease) (2) Hyperkalemia, diminished renal excretion (3) ACS (acute coronary syndrome) (4) Hypertensive kidney disease (5) Anemia in chronic kidney disease (CKD) Assessment - Hyperkalemia missed dialysis 3/4 - Volume overload - ESRD (end stage renal disease) missed HD 3/4 - Hypertensive kidney disease - h/o CAD - Diabetic nephropathy with proteinuria - h/o Anemia , low B12 and low Iron - h/o Dizziness and unsteady gait Plan Plan being transfused for Anemia- Reports black stool. Venofer Renal diet- repeat CXR noted HTN, meds adjusted GI eval? HD next 10/12 gastric support, increase protonix Subjective ROS Limited/Unobtainable: No Constitutional: Reports: other - feels better Objective Objective Last 24 Hour Vital Signs Date Time Temp Pulse Resp B/P (MAP) Pulse Ox O2 Delivery O2 Flow Rate FiO2 10/11/18 10:40 78 158/62 10/11/18 10:40 158/62 10/11/18 10:39 78 158/62 10/11/18 10:38 158/62 10/11/18 08:00 97.9 78 18 158/62 (94) 97 10/11/18 07:50 77 18 99 Room Air 21 10/11/18 07:40 Room Air 21 10/11/18 07:40 99 Room Air 21 10/11/18 07:40 74 20 99 Room Air 21 10/11/18 05:48 166/58 10/11/18 04:59 97.9 73 18 166/58 (94) 97 10/11/18 00:59 98.8 86 18 152/72 (98) 98 10/11/18 00:09 75 18 99 Room Air 21 10/11/18 00:00 75 20 95 Room Air 21 10/10/18 21:20 81 160/53 10/10/18 21:00 Room Air 10/10/18 20:00 98.3 81 18 160/53 (88) 95 10/10/18 19:35 95 Room Air 21 10/10/18 19:35 82 16 95 Room Air 21 10/10/18 19:35 Room Air 21 10/10/18 19:33 79 18 100 Room Air 21 10/10/18 16:00 98.0 77 18 139/46 (77) 97 10/10/18 13:53 Nasal Cannula 10/10/18 13:23 77 18 99 Room Air 21 10/10/18 13:11 69 18 94 Room Air 21 10/10/18 12:00 98.0 73 22 146/51 (82) 99 10/10/18 12:00 73 Intake and Output 10/10/18 10/11/18 18:59 06:59 Intake Total 600 ml Output Total 3000 ml Balance -3000 ml 600 ml Other 600 ml Hemodialysis UF 3000 ml Laboratory Tests 10/11/18 10:40: White Blood Count 4.5L, Red Blood Count 3.35L, Hemoglobin 10.0#L, Hematocrit 30.5#L, Mean Corpuscular Volume 91, Mean Corpuscular Hemoglobin 30.0, Mean Corpuscular Hemoglobin Concent 33.0, Red Cell Distribution Width 13.3, Platelet Count 237, Mean Platelet Volume 6.1L, Neutrophils (%) (Auto) 66.2, Lymphocytes ( %) (Auto) 18.2L, Monocytes (%) (Auto) 10.8H, Eosinophils (%) (Auto) 3.7H, Basophils (%) (Auto) 1.1, Sodium Level [Pending], Potassium Level [Pending], Chloride Level [Pending], Carbon Dioxide Level [Pending], Blood Urea Nitrogen [ Pending], Creatinine [Pending], Estimat Glomerular Filtration Rate [Pending], Glucose Level [Pending], Calcium Level [Pending], Phosphorus Level [Pending], Total Bilirubin [Pending], Aspartate Amino Transf (AST/SGOT) [Pending], Alanine Aminotransferase (ALT/SGPT) [Pending], Alkaline Phosphatase [Pending], Pro-B- Type Natriuretic Peptide [Pending], Total Protein [Pending], Albumin [Pending], Globulin [Pending] Height (Feet): 5 Height (Inches): 1.00 Weight (Pounds): 177 General Appearance: no apparent distress Cardiovascular: normal rate Respiratory/Chest: decreased breath sounds Abdomen: soft Francis Falk MD Oct 11, 2018 11:56
[2018-10-11 11:59] LABS: ALANINE AMINOTRANSFERASE 10 U/L (12-78); ALBUMIN 3.2 G/DL (3.4-5.0); ALBUMIN/GLOBULIN RATIO 0.7 (1.0-2.7); ALKALINE PHOSPHATASE 139 U/L (46-116); ANION GAP 9 mmol/L (5-15); ASPARTATE AMINO TRANSFERASE 16 U/L (15-37); BILIRUBIN,TOTAL 0.4 MG/DL (0.2-1.0); BLOOD UREA NITROGEN 71 mg/dL (7-18); CALCIUM 7.8 MG/DL (8.5-10.1); CARBON DIOXIDE 26 MMOL/L (21-32); CHLORIDE 97 MMOL/L (98-107); CREATININE 6.1 MG/DL (0.55-1.30); PHOSPHORUS 4.5 MG/DL (2.5-4.9); POTASSIUM 4.7 MMOL/L (3.5-5.1); SODIUM 132 MMOL/L (136-145)
[2018-10-11 12:00] VITALS: BP 165/71
[2018-10-11 16:00] VITALS: BP 163/84
[2018-10-11] MEDS ORDERED: Nulytely 4L ORAL ONE (16:00)
[2018-10-11] MEDS ORDERED: Bisacodyl EC 5mg tab ORAL SCH (16:00)
--- NOTE | 2018-10-11 19:57 | General Progress Note ---
Assessment/Plan Problem List: (1) Diabetic nephropathy with proteinuria ICD Codes: E11.21 - Type 2 diabetes mellitus with diabetic nephropathy SNOMED: 55070832, 579284101 (2) Dyspnea ICD Codes: R06.00 - Dyspnea, unspecified SNOMED: 596030848 Qualifiers: Qualified Codes: R06.00 - Dyspnea, unspecified (3) ESRD (end stage renal disease) ICD Codes: N18.6 - End stage renal disease SNOMED: 97653268 (4) Hyperkalemia, diminished renal excretion ICD Codes: E87.5 - Hyperkalemia SNOMED: 59849462 (5) Hypertensive kidney disease ICD Codes: I12.9 - Hypertensive chronic kidney disease with stage 1 through stage 4 chronic kidney disease, or unspecified chronic kidney disease SNOMED: 30598805 (6) ACS (acute coronary syndrome) ICD Codes: I24.9 - Acute ischemic heart disease, unspecified SNOMED: 051917250 (7) Pneumonia ICD Codes: J18.9 - Pneumonia, unspecified organism SNOMED: 618860997 Status: deteriorating Assessment/Plan s/p gi bleed unstable for dc s/p transfusion consulted dr jimenez for gi bleeding esrd on hd lyte abnormality pulm edema improved Subjective ROS Limited/Unobtainable: Yes Allergies: Coded Allergies: No Known Allergies (Unverified , 05/12/17) Objective Last 24 Hour Vital Signs Date Time Temp Pulse Resp B/P (MAP) Pulse Ox O2 Delivery O2 Flow Rate FiO2 10/11/18 16:00 98.9 72 18 163/84 (110) 96 10/11/18 14:06 72 18 98 Room Air 21 10/11/18 13:53 165/71 10/11/18 13:30 72 18 98 Room Air 21 10/11/18 12:00 97.3 74 18 165/71 (102) 94 10/11/18 10:40 78 158/62 10/11/18 10:40 158/62 10/11/18 10:39 78 158/62 10/11/18 10:38 158/62 10/11/18 09:00 Room Air 10/11/18 08:00 97.9 78 18 158/62 (94) 97 10/11/18 07:50 77 18 99 Room Air 21 10/11/18 07:40 Room Air 21 10/11/18 07:40 99 Room Air 21 10/11/18 07:40 74 20 99 Room Air 21 10/11/18 05:48 166/58 10/11/18 04:59 97.9 73 18 166/58 (94) 97 10/11/18 00:59 98.8 86 18 152/72 (98) 98 10/11/18 00:09 75 18 99 Room Air 21 10/11/18 00:00 75 20 95 Room Air 21 10/10/18 21:20 81 160/53 10/10/18 21:00 Room Air 10/10/18 20:00 98.3 81 18 160/53 (88) 95 Intake and Output 10/10/18 10/11/18 19:00 07:00 Intake Total 600 ml Output Total 3000 ml Balance -3000 ml 600 ml Other 600 ml Hemodialysis UF 3000 ml Laboratory Tests 10/11/18 10:40: White Blood Count 4.5L, Red Blood Count 3.35L, Hemoglobin 10.0#L, Hematocrit 30.5#L, Mean Corpuscular Volume 91, Mean Corpuscular Hemoglobin 30.0, Mean Corpuscular Hemoglobin Concent 33.0, Red Cell Distribution Width 13.3, Platelet Count 237, Mean Platelet Volume 6.1L, Neutrophils (%) (Auto) 66.2, Lymphocytes ( %) (Auto) 18.2L, Monocytes (%) (Auto) 10.8H, Eosinophils (%) (Auto) 3.7H, Basophils (%) (Auto) 1.1, Sodium Level 132L, Potassium Level 4.7, Chloride Level 97L, Carbon Dioxide Level 26, Anion Gap 9, Blood Urea Nitrogen 71H, Creatinine 6.1H, Estimat Glomerular Filtration Rate 6.8, Glucose Level 148H, Calcium Level 7.8L, Phosphorus Level 4.5, Total Bilirubin 0.4, Aspartate Amino Transf (AST/SGOT) 16, Alanine Aminotransferase (ALT/SGPT) 10L, Alkaline Phosphatase 139H, Pro-B-Type Natriuretic Peptide 50092R, Total Protein 7.5, Albumin 3.2L, Globulin 4.3, Albumin/Globulin Ratio 0.7L Height (Feet): 5 Height (Inches): 1.00 Weight (Pounds): 177 Cardiovascular: normal rate Respiratory/Chest: lungs clear Abdomen: soft Makenna Daniel MD Oct 11, 2018 19:57
[2018-10-11 20:25] VITALS: BP 142/60
[2018-10-11] MEDS ORDERED: Epoetin Alfa(ESRD on dialysis)10,000 unit/ml vial SUBQ SCH (21:00)
[2018-10-11] MEDS: Atorvastatin 20mg tab ORAL SCH (22:01)
[2018-10-12 00:26] VITALS: BP 147/53
[2018-10-12 04:41] VITALS: BP 138/61
[2018-10-12] MEDS: NovoLOG Insulin Flexpen SUBQ SCH ×7 (05:51→21:00)
[2018-10-12 07:09] LABS: INR 1.1 (0.9-1.1)
[2018-10-12 07:11] LABS: BASOPHILS % (AUTO) 1.3 % (0.0-2.0); EOSINOPHILS % (AUTO) 4.4 % (0.0-3.0); HEMATOCRIT 26.1 % (37.0-47.0); LYMPHOCYTES % (AUTO) 17.7 % (20.0-45.0); MEAN CORPUSCULAR VOLUME 89 FL (80-99); MONOCYTES % (AUTO) 8.5 % (1.0-10.0); NEUTROPHILS % (AUTO) 68.1 % (45.0-75.0); PLATELET COUNT 236 K/UL (150-450); RED BLOOD COUNT 2.94 M/UL (4.20-5.40); RED CELL DISTRIBUTION WIDTH 13.2 % (11.6-14.8); WHITE BLOOD COUNT 4.6 K/UL (4.8-10.8)
[2018-10-12 07:12] LABS: ANION GAP 11 mmol/L (5-15); BLOOD UREA NITROGEN 76 mg/dL (7-18); CARBON DIOXIDE 25 MMOL/L (21-32); CHLORIDE 98 MMOL/L (98-107); CREATININE 6.8 MG/DL (0.55-1.30); POTASSIUM 5.2 MMOL/L (3.5-5.1); SODIUM 134 MMOL/L (136-145)
[2018-10-12 08:00] VITALS: BP 154/68
--- NOTE | 2018-10-12 08:41 | General Progress Note ---
Assessment/Plan Problem List: (1) Black tarry stools ICD Codes: K92.1 - Melena SNOMED: 388613169 (2) Anemia in chronic kidney disease (CKD) ICD Codes: N18.9 - Chronic kidney disease, unspecified; D63.1 - Anemia in chronic kidney disease SNOMED: 152207462 (3) Diabetic nephropathy with proteinuria ICD Codes: E11.21 - Type 2 diabetes mellitus with diabetic nephropathy SNOMED: 55286961, 719657132 (4) Hypertensive kidney disease ICD Codes: I12.9 - Hypertensive chronic kidney disease with stage 1 through stage 4 chronic kidney disease, or unspecified chronic kidney disease SNOMED: 38261241 (5) ESRD (end stage renal disease) ICD Codes: N18.6 - End stage renal disease SNOMED: 15047736 Assessment/Plan patient EGD and colonoscopy was canceled by anesthesia today due to K of 5.2 will reschedule for tomorrow clears for today patient is going for HD today Subjective ROS Limited/Unobtainable: Yes Allergies: Coded Allergies: No Known Allergies (Unverified , 05/12/17) Objective Last 24 Hour Vital Signs Date Time Temp Pulse Resp B/P (MAP) Pulse Ox O2 Delivery O2 Flow Rate FiO2 10/12/18 04:41 97.9 65 20 138/61 (86) 95 10/12/18 00:26 98.5 68 20 147/53 (84) 94 10/11/18 21:54 73 142/60 10/11/18 21:00 Room Air 10/11/18 20:25 73 20 142/60 (87) 95 10/11/18 16:00 98.9 72 18 163/84 (110) 96 10/11/18 14:06 72 18 98 Room Air 21 10/11/18 13:53 165/71 10/11/18 13:30 72 18 98 Room Air 21 10/11/18 12:00 97.3 74 18 165/71 (102) 94 10/11/18 10:40 78 158/62 10/11/18 10:40 158/62 10/11/18 10:39 78 158/62 10/11/18 10:38 158/62 10/11/18 09:00 Room Air Intake and Output 10/11/18 10/12/18 19:00 07:00 Intake Total 2600 ml Balance 2600 ml Intake Oral 2600 ml # Voids 4 # Bowel Movements 3 Laboratory Tests 10/11/18 10:40: White Blood Count 4.5L, Red Blood Count 3.35L, Hemoglobin 10.0#L, Hematocrit 30.5#L, Mean Corpuscular Volume 91, Mean Corpuscular Hemoglobin 30.0, Mean Corpuscular Hemoglobin Concent 33.0, Red Cell Distribution Width 13.3, Platelet Count 237, Mean Platelet Volume 6.1L, Neutrophils (%) (Auto) 66.2, Lymphocytes ( %) (Auto) 18.2L, Monocytes (%) (Auto) 10.8H, Eosinophils (%) (Auto) 3.7H, Basophils (%) (Auto) 1.1, Sodium Level 132L, Potassium Level 4.7, Chloride Level 97L, Carbon Dioxide Level 26, Anion Gap 9, Blood Urea Nitrogen 71H, Creatinine 6.1H, Estimat Glomerular Filtration Rate 6.8, Glucose Level 148H, Calcium Level 7.8L, Phosphorus Level 4.5, Total Bilirubin 0.4, Aspartate Amino Transf (AST/SGOT) 16, Alanine Aminotransferase (ALT/SGPT) 10L, Alkaline Phosphatase 139H, Pro-B-Type Natriuretic Peptide 55328W, Total Protein 7.5, Albumin 3.2L, Globulin 4.3, Albumin/Globulin Ratio 0.7L 10/11/18 19:05: Stool Occult Blood [Pending] 10/12/18 06:10: White Blood Count 4.6L, Red Blood Count 2.94L, Hemoglobin 9.0L, Hematocrit 26.1L , Mean Corpuscular Volume 89, Mean Corpuscular Hemoglobin 30.7, Mean Corpuscular Hemoglobin Concent 34.6, Red Cell Distribution Width 13.2, Platelet Count 236, Mean Platelet Volume 6.8, Neutrophils (%) (Auto) 68.1, Lymphocytes (% ) (Auto) 17.7L, Monocytes (%) (Auto) 8.5, Eosinophils (%) (Auto) 4.4H, Basophils (%) (Auto) 1.3, Sodium Level 134L, Potassium Level 5.2H, Chloride Level 98, Carbon Dioxide Level 25, Anion Gap 11, Blood Urea Nitrogen 76H, Creatinine 6.8H, Estimat Glomerular Filtration Rate 6.0, Glucose Level 97, Calcium Level 8.0L, Prothrombin Time 11.3, Prothromb Time International Ratio 1.1, Activated Partial Thromboplast Time 33 Height (Feet): 5 Height (Inches): 5.00 Weight (Pounds): 177 General Appearance: alert EENT: normal ENT inspection Neck: supple Cardiovascular: normal rate Respiratory/Chest: decreased breath sounds Abdomen: normal bowel sounds, non tender, soft Extremities: non-tender Lito Cervantes MD Oct 12, 2018 08:41
[2018-10-12] MEDS: Sennosides 8.6mg tab ORAL SCH (09:12)
[2018-10-12] MEDS: Lisinopril 20mg tab ORAL SCH (09:14)
[2018-10-12] MEDS: Imdur 30mg tab ORAL SCH (09:14)
[2018-10-12] MEDS: Aspirin Baby 81mg ORAL SCH (09:15)
[2018-10-12] MEDS: Docusate 100mg cap ORAL SCH ×3 (09:15→17:45)
[2018-10-12] MEDS: Levemir Flexpen SUBQ SCH ×2 (09:16→21:00)
[2018-10-12] MEDS: Heparin 5000 units/ml inj SUBQ SCH ×2 (09:16→21:00)
--- NOTE | 2018-10-12 10:28 | Diagnostic Imaging Report ---
APPROVED REPORT CPT Code: 22470 Present Symptoms Lower Extremity Pain: Left LEFT LEG: Venous imaging reveals a patent deep venous system. There is no evidence of thrombus within the femoral, popliteal or tibial segments. The greater saphenous vein is also within normal limits. Doppler indicates normal spontaneous flow within these segments.
--- NOTE | 2018-10-12 11:37 | Pulmonology Progress Note ---
Assessment/Plan Assessment/Plan ASSESSMENT: The patient is a 68-year-old female presenting with shortness of breath in the setting of decompensated heart failure and missed dialysis. PROBLEM LIST: 1. Shortness of breath in the setting of volume overload and missed dialysis. 2. End-stage renal disease on dialysis presenting with missed dialysis. 3. Hyperkalemia secondary to above. 4. Bilateral pulmonary airspace opacities noted on chest x-ray, likely edema. 5. Diabetes, hypertension, hyperlipidemia, GERD. 6. Obesity. 7. CHF with DD 8. Moderate (1.4 cm2) 9. Anemia with dark stools concerning for GIB TREATMENT PLAN: 1. Optimize pulmonary hygiene/mobilize as tolerated. 2. PRN O2 3. Monitor volumes and renal function. Dialysis per Renal with UF as able. 4. F/U GI recs, EGD/colo tommorrow 5. F/U cardiology recs 6. DVT prophylaxis: Hep SQ 7. The patient should have a sleep study as an outpatient. 8. CT-A reviewed, diffuse mild GGO's likely represent edema, radiologist comments on spiculation @ L base, there is atx @ the base but no definite spiculation on my review? Will need a repeat CT in 4-6 weeks 9. Weight loss, diet, and exercise discussed. Subjective Allergies: Coded Allergies: No Known Allergies (Unverified , 05/12/17) Subjective AFVSS on RA S/P PRBC plan for endoscopy tommorrow No cough no SOB no PND no orthopnea no CP no FC Objective Last 24 Hour Vital Signs Date Time Temp Pulse Resp B/P (MAP) Pulse Ox O2 Delivery O2 Flow Rate FiO2 10/12/18 09:14 68 154/68 10/12/18 09:14 154/88 10/12/18 09:14 154/88 10/12/18 09:13 68 154/68 10/12/18 09:00 Room Air 10/12/18 08:00 98.2 68 20 154/68 (96) 96 10/12/18 04:41 97.9 65 20 138/61 (86) 95 10/12/18 00:26 98.5 68 20 147/53 (84) 94 10/11/18 21:54 73 142/60 10/11/18 21:00 Room Air 10/11/18 20:25 73 20 142/60 (87) 95 10/11/18 16:00 98.9 72 18 163/84 (110) 96 10/11/18 14:06 72 18 98 Room Air 21 10/11/18 13:53 165/71 10/11/18 13:30 72 18 98 Room Air 21 10/11/18 12:00 97.3 74 18 165/71 (102) 94 Intake and Output 10/11/18 10/12/18 18:59 06:59 Intake Total 2600 ml Balance 2600 ml Intake Oral 2600 ml # Voids 4 # Bowel Movements 3 General Appearance: WD/WN, no acute distress HEENT: normocephalic, atraumatic, anicteric, mucous membranes moist Respiratory/Chest: chest wall non-tender, lungs clear, normal breath sounds, no respiratory distress, no accessory muscle use Cardiovascular: normal peripheral pulses, normal rate, regular rhythm Abdomen: normal bowel sounds, soft, non tender, no organomegaly, non distended , no mass Extremities: no cyanosis, no clubbing, no edema Laboratory Tests 10/11/18 19:05: Stool Occult Blood [Pending] 10/12/18 06:10: White Blood Count 4.6L, Red Blood Count 2.94L, Hemoglobin 9.0L, Hematocrit 26.1L , Mean Corpuscular Volume 89, Mean Corpuscular Hemoglobin 30.7, Mean Corpuscular Hemoglobin Concent 34.6, Red Cell Distribution Width 13.2, Platelet Count 236, Mean Platelet Volume 6.8, Neutrophils (%) (Auto) 68.1, Lymphocytes (% ) (Auto) 17.7L, Monocytes (%) (Auto) 8.5, Eosinophils (%) (Auto) 4.4H, Basophils (%) (Auto) 1.3, Prothrombin Time 11.3, Prothromb Time International Ratio 1.1, Activated Partial Thromboplast Time 33, Sodium Level 134L, Potassium Level 5.2H, Chloride Level 98, Carbon Dioxide Level 25, Anion Gap 11, Blood Urea Nitrogen 76H, Creatinine 6.8H, Estimat Glomerular Filtration Rate 6.0, Glucose Level 97, Calcium Level 8.0L Current Medications Medications (Trade) Dose Ordered Sig/Toya Route PRN Reason Start Time Stop Time Status Last Admin Dose Admin Acetaminophen (Tylenol) 500 mg Q6H PRN ORAL Prn Headache/Temp > 101 10/10/18 15:52 11/05/18 15:51 Aspirin (ASA) 81 mg DAILY ORAL 10/11/18 09:00 11/06/18 08:59 10/12/18 09:15 Atorvastatin Calcium (Lipitor) 40 mg BEDTIME ORAL 10/10/18 21:00 11/05/18 20:59 10/11/18 22:01 Dextrose (Dextrose 50%) 25 ml Q30M PRN IV Hypoglycemia 10/10/18 16:15 11/05/18 19:44 Dextrose (Dextrose 50%) 50 ml Q30M PRN IV Hypoglycemia 10/10/18 16:15 11/05/18 19:44 Docusate Sodium (Colace) 100 mg TID ORAL 10/10/18 18:00 11/05/18 17:59 10/12/18 09:15 Epoetin Panchito (Epoetin Panchito(ESRD on dialysis)) 10,000 unit THU-THU-THU SUBQ 10/11/18 21:00 11/07/18 20:59 10/11/18 21:54 Folic Acid (Folate) 1 mg DAILY ORAL 10/11/18 09:00 11/06/18 08:59 10/12/18 09:15 Gabapentin (Neurontin) 100 mg THREE TIMES A DAY ORAL 10/10/18 18:00 11/05/18 17:59 10/12/18 09:12 Gabapentin (Neurontin) 300 mg BEDTIME ORAL 10/10/18 21:00 11/05/18 20:59 10/11/18 21:54 Heparin Sodium (Porcine) (Heparin 5000 units/ml) 5,000 units EVERY 12 HOURS SUBQ 10/10/18 21:00 11/06/18 20:59 10/12/18 09:16 Hydralazine HCl (Apresoline) 25 mg Q6H PRN ORAL SBP > 160mmHg 10/10/18 15:53 11/05/18 15:52 10/11/18 13:53 Insulin Aspart (NovoLOG) BEFORE MEALS AND HS SUBQ 10/10/18 16:30 11/05/18 20:59 10/11/18 06:47 Insulin Aspart (NovoLOG) 5 units BEFORE MEALS SUBQ 10/10/18 16:30 11/06/18 06:29 10/11/18 06:47 Insulin Detemir (Levemir) 12 units Q12HR SUBQ 10/10/18 21:00 11/09/18 08:59 10/12/18 09:16 Isosorbide Mononitrate (Imdur) 30 mg DAILY ORAL 10/11/18 09:00 11/08/18 08:59 10/12/18 09:14 Levothyroxine Sodium (Synthroid) 50 mcg ACBREAKFAST ORAL 10/11/18 06:30 11/06/18 06:29 10/12/18 06:03 Lisinopril (Prinivil) 20 mg DAILY ORAL 10/11/18 09:00 11/06/18 08:59 10/12/18 09:14 Metoprolol Tartrate (Lopressor) 100 mg EVERY 12 HOURS ORAL 10/10/18 21:00 11/05/18 20:59 10/12/18 09:14 Nifedipine (Procardia XL) 60 mg DAILY ORAL 10/11/18 09:00 11/06/18 08:59 10/12/18 09:13 Ondansetron HCl (Zofran) 4 mg Q6H PRN ORAL Nausea & Vomiting 10/10/18 16:45 11/05/18 16:44 10/11/18 13:53 Pantoprazole (Protonix) 40 mg Q12HR ORAL 10/11/18 21:00 11/05/18 16:59 10/12/18 09:12 Polyethylene Glycol (Miralax) 238 gm ONCE ONCE ORAL 10/12/18 16:00 10/12/18 16:01 Sennosides (Senokot) 8.6 mg DAILY ORAL 10/11/18 09:00 11/06/18 08:59 10/12/18 09:12 Sevelamer Carbonate (Renvela) 2,400 mg THREE TIMES A DAY ORAL 10/10/18 18:00 11/07/18 12:59 10/12/18 09:12 Tramadol HCl (Ultram) 50 mg Q6H PRN ORAL For Pain 10/10/18 15:55 10/13/18 15:54 Mauri Mabry MD Oct 12, 2018 11:37
[2018-10-12 12:00] VITALS: BP 153/62
--- NOTE | 2018-10-12 14:39 | Nephrology Progress Note ---
Assessment/Plan Problem List: (1) ESRD (end stage renal disease) (2) Hyperkalemia, diminished renal excretion (3) ACS (acute coronary syndrome) (4) Hypertensive kidney disease (5) Anemia in chronic kidney disease (CKD) Assessment - Hyperkalemia missed dialysis 3/4 - Volume overload - ESRD (end stage renal disease) missed HD 3/4 - Hypertensive kidney disease - h/o CAD - Diabetic nephropathy with proteinuria - h/o Anemia , low B12 and low Iron - h/o Dizziness and unsteady gait Plan Plan transfused for Anemia- Reports black stool. monitor H&H Venofer Renal diet- repeat CXR noted HTN, meds adjusted GI eval? HD today10/12 gastric support, increase protonix Subjective ROS Limited/Unobtainable: No Constitutional: Reports: malaise Objective Objective Last 24 Hour Vital Signs Date Time Temp Pulse Resp B/P (MAP) Pulse Ox O2 Delivery O2 Flow Rate FiO2 10/12/18 12:00 97.0 71 16 153/62 (92) 96 10/12/18 09:14 68 154/68 10/12/18 09:14 154/88 10/12/18 09:14 154/88 10/12/18 09:13 68 154/68 10/12/18 09:00 Room Air 10/12/18 08:00 98.2 68 20 154/68 (96) 96 10/12/18 04:41 97.9 65 20 138/61 (86) 95 10/12/18 00:26 98.5 68 20 147/53 (84) 94 10/11/18 21:54 73 142/60 10/11/18 21:00 Room Air 10/11/18 20:25 73 20 142/60 (87) 95 10/11/18 16:00 98.9 72 18 163/84 (110) 96 Intake and Output 10/11/18 10/12/18 18:59 06:59 Intake Total 2600 ml Balance 2600 ml Intake Oral 2600 ml # Voids 4 # Bowel Movements 3 Laboratory Tests 10/11/18 19:05: Stool Occult Blood Positive 10/12/18 06:10: White Blood Count 4.6L, Red Blood Count 2.94L, Hemoglobin 9.0L, Hematocrit 26.1L , Mean Corpuscular Volume 89, Mean Corpuscular Hemoglobin 30.7, Mean Corpuscular Hemoglobin Concent 34.6, Red Cell Distribution Width 13.2, Platelet Count 236, Mean Platelet Volume 6.8, Neutrophils (%) (Auto) 68.1, Lymphocytes (% ) (Auto) 17.7L, Monocytes (%) (Auto) 8.5, Eosinophils (%) (Auto) 4.4H, Basophils (%) (Auto) 1.3, Prothrombin Time 11.3, Prothromb Time International Ratio 1.1, Activated Partial Thromboplast Time 33, Sodium Level 134L, Potassium Level 5.2H, Chloride Level 98, Carbon Dioxide Level 25, Anion Gap 11, Blood Urea Nitrogen 76H, Creatinine 6.8H, Estimat Glomerular Filtration Rate 6.0, Glucose Level 97, Calcium Level 8.0L Height (Feet): 5 Height (Inches): 5.00 Weight (Pounds): 177 General Appearance: no apparent distress Cardiovascular: normal rate Respiratory/Chest: lungs clear Abdomen: soft Francis Falk MD Oct 12, 2018 14:39
--- NOTE | 2018-10-12 14:56 | General Progress Note ---
Assessment/Plan Problem List: (1) Diabetic nephropathy with proteinuria ICD Codes: E11.21 - Type 2 diabetes mellitus with diabetic nephropathy SNOMED: 28692840, 653432055 (2) ESRD (end stage renal disease) ICD Codes: N18.6 - End stage renal disease SNOMED: 28221175 (3) Hyperkalemia, diminished renal excretion ICD Codes: E87.5 - Hyperkalemia SNOMED: 75327226 Assessment/Plan continue Levemir 12 units bid continue Novolog 5 units ac tid + NISS continue Levothyroxine 50 mcg daily Subjective Allergies: Coded Allergies: No Known Allergies (Unverified , 05/12/17) All Systems: reviewed and negative except above Subjective events noted Item Value Date Time Bedside Blood Glucose 166 mg/dl H 10/12/18 1217 Bedside Blood Glucose 111 mg/dl 10/12/18 0916 Bedside Blood Glucose 111 mg/dl 10/12/18 0629 Bedside Blood Glucose 121 mg/dl H 10/11/18 2155 Bedside Blood Glucose 223 mg/dl H 10/11/18 1630 Bedside Blood Glucose 168 mg/dl H 10/11/18 1111 Objective Last 24 Hour Vital Signs Date Time Temp Pulse Resp B/P (MAP) Pulse Ox O2 Delivery O2 Flow Rate FiO2 10/12/18 12:00 97.0 71 16 153/62 (92) 96 10/12/18 09:14 68 154/68 10/12/18 09:14 154/88 10/12/18 09:14 154/88 10/12/18 09:13 68 154/68 10/12/18 09:00 Room Air 10/12/18 08:00 98.2 68 20 154/68 (96) 96 10/12/18 04:41 97.9 65 20 138/61 (86) 95 10/12/18 00:26 98.5 68 20 147/53 (84) 94 10/11/18 21:54 73 142/60 10/11/18 21:00 Room Air 10/11/18 20:25 73 20 142/60 (87) 95 10/11/18 16:00 98.9 72 18 163/84 (110) 96 Intake and Output 10/11/18 10/12/18 18:59 06:59 Intake Total 2600 ml Balance 2600 ml Intake Oral 2600 ml # Voids 4 # Bowel Movements 3 Laboratory Tests 10/11/18 19:05: Stool Occult Blood Positive 10/12/18 06:10: White Blood Count 4.6L, Red Blood Count 2.94L, Hemoglobin 9.0L, Hematocrit 26.1L , Mean Corpuscular Volume 89, Mean Corpuscular Hemoglobin 30.7, Mean Corpuscular Hemoglobin Concent 34.6, Red Cell Distribution Width 13.2, Platelet Count 236, Mean Platelet Volume 6.8, Neutrophils (%) (Auto) 68.1, Lymphocytes (% ) (Auto) 17.7L, Monocytes (%) (Auto) 8.5, Eosinophils (%) (Auto) 4.4H, Basophils (%) (Auto) 1.3, Prothrombin Time 11.3, Prothromb Time International Ratio 1.1, Activated Partial Thromboplast Time 33, Sodium Level 134L, Potassium Level 5.2H, Chloride Level 98, Carbon Dioxide Level 25, Anion Gap 11, Blood Urea Nitrogen 76H, Creatinine 6.8H, Estimat Glomerular Filtration Rate 6.0, Glucose Level 97, Calcium Level 8.0L, C-Reactive Protein, Quantitative [Pending] Height (Feet): 5 Height (Inches): 5.00 Weight (Pounds): 177 General Appearance: no apparent distress Neck: normal alignment Cardiovascular: normal rate Respiratory/Chest: lungs clear Abdomen: normal bowel sounds Pelvis: normal external exam Objective Current Medications Medications (Trade) Dose Ordered Sig/Toya Route PRN Reason Start Time Stop Time Status Last Admin Dose Admin Acetaminophen (Tylenol) 500 mg Q6H PRN ORAL Prn Headache/Temp > 101 10/10/18 15:52 11/05/18 15:51 Aspirin (ASA) 81 mg DAILY ORAL 10/11/18 09:00 11/06/18 08:59 10/12/18 09:15 Atorvastatin Calcium (Lipitor) 40 mg BEDTIME ORAL 10/10/18 21:00 11/05/18 20:59 10/11/18 22:01 Dextrose (Dextrose 50%) 25 ml Q30M PRN IV Hypoglycemia 10/10/18 16:15 11/05/18 19:44 Dextrose (Dextrose 50%) 50 ml Q30M PRN IV Hypoglycemia 10/10/18 16:15 11/05/18 19:44 Docusate Sodium (Colace) 100 mg TID ORAL 10/10/18 18:00 11/05/18 17:59 10/12/18 12:34 Epoetin Panchito (Epoetin Panchito(ESRD on dialysis)) 10,000 unit THU-THU-THU SUBQ 10/11/18 21:00 11/07/18 20:59 10/11/18 21:54 Folic Acid (Folate) 1 mg DAILY ORAL 10/11/18 09:00 11/06/18 08:59 10/12/18 09:15 Gabapentin (Neurontin) 100 mg THREE TIMES A DAY ORAL 10/10/18 18:00 11/05/18 17:59 10/12/18 12:34 Gabapentin (Neurontin) 300 mg BEDTIME ORAL 10/10/18 21:00 11/05/18 20:59 10/11/18 21:54 Heparin Sodium (Porcine) (Heparin 5000 units/ml) 5,000 units EVERY 12 HOURS SUBQ 10/10/18 21:00 11/06/18 20:59 10/12/18 09:16 Hydralazine HCl (Apresoline) 25 mg Q6H PRN ORAL SBP > 160mmHg 10/10/18 15:53 11/05/18 15:52 10/11/18 13:53 Insulin Aspart (NovoLOG) BEFORE MEALS AND HS SUBQ 10/10/18 16:30 11/05/18 20:59 10/12/18 12:16 Insulin Aspart (NovoLOG) 5 units BEFORE MEALS SUBQ 10/10/18 16:30 11/06/18 06:29 10/12/18 12:17 Insulin Detemir (Levemir) 12 units Q12HR SUBQ 10/10/18 21:00 11/09/18 08:59 10/12/18 09:16 Isosorbide Mononitrate (Imdur) 30 mg DAILY ORAL 10/11/18 09:00 11/08/18 08:59 10/12/18 09:14 Levothyroxine Sodium (Synthroid) 50 mcg ACBREAKFAST ORAL 10/11/18 06:30 11/06/18 06:29 10/12/18 06:03 Lisinopril (Prinivil) 20 mg DAILY ORAL 10/11/18 09:00 11/06/18 08:59 10/12/18 09:14 Metoprolol Tartrate (Lopressor) 100 mg EVERY 12 HOURS ORAL 10/10/18 21:00 11/05/18 20:59 10/12/18 09:14 Nifedipine (Procardia XL) 60 mg DAILY ORAL 10/11/18 09:00 11/06/18 08:59 10/12/18 09:13 Ondansetron HCl (Zofran) 4 mg Q6H PRN ORAL Nausea & Vomiting 10/10/18 16:45 11/05/18 16:44 10/11/18 13:53 Pantoprazole (Protonix) 40 mg Q12HR ORAL 10/11/18 21:00 11/05/18 16:59 10/12/18 09:12 Polyethylene Glycol (Miralax) 238 gm ONCE ONCE ORAL 10/12/18 16:00 10/12/18 16:01 Sennosides (Senokot) 8.6 mg DAILY ORAL 10/11/18 09:00 11/06/18 08:59 10/12/18 09:12 Sevelamer Carbonate (Renvela) 2,400 mg THREE TIMES A DAY ORAL 10/10/18 18:00 11/07/18 12:59 10/12/18 12:34 Tramadol HCl (Ultram) 50 mg Q6H PRN ORAL For Pain 10/10/18 15:55 10/13/18 15:54 Lavell Archer MD Oct 12, 2018 14:56
[2018-10-12 16:00] VITALS: BP 142/56
[2018-10-12] MEDS ORDERED: Polyethylene Glycol 238gm bottle ORAL ONE (16:00)
--- NOTE | 2018-10-12 17:47 | Consultation ---
History of Present Illness General Chief Complaint: Dyspnea/Respdistress Referring physician: MAKENNA DANIEL Reason for Consultation: ANEMIA Present Illness Allergies: Coded Allergies: No Known Allergies (Unverified , 05/12/17) Medication History Scheduled Atorvastatin Calcium* (Atorvastatin Calcium*), 40 MG ORAL BEDTIME, (Reported) Atorvastatin Calcium* (Atorvastatin Calcium*), 80 MG ORAL BEDTIME, (Reported) Calcium Carbonate/Vitamin D3 (Oyster Shell 500 Mg + Vit D Tb), 1 EACH PO DAILY, (Reported) Docusate Sodium* (Docusate Sodium*), 100 MG ORAL DAILY, (Reported) Epoetin Panchito (Epogen), 10,000 UNIT SUBQ 3XW, (Reported) Ferrous Sulfate (Ferrous Sulfate), 325 MG ORAL DAILY, (Reported) Folic Acid* (Folic Acid*), 1 MG ORAL DAILY, (Reported) Furosemide* (Lasix*), 20 MG ORAL BID, (Reported) Gabapentin (Neurontin), 300 MG ORAL THREE TIMES A DAY, (Reported) Gabapentin* (Gabapentin*), 300 MG ORAL BEDTIME, (Reported) Insulin Detemir (Levemir), 15 SUBQ Q12HR, (Reported) Isosorbide Mononitrate (Isosorbide Mononitrate Er), 180 MG PO DAILY, (Reported) Isosorbide Mononitrate (Isosorbide Mononitrate Er), 60 MG PO DAILY, (Reported) Labetalol HCl (Labetalol HCl), 100 MG ORAL BID, (Reported) Lansoprazole* (Lansoprazole*), 30 MG ORAL DAILY, (Reported) Levothyroxine Sodium (Levothyroxine Sodium), 137 MCG ORAL DAILY, (Reported) Levothyroxine Sodium* (Levothyroxine Sodium*), 50 MCG ORAL DAILY, (Reported) Lisinopril (Lisinopril*), 20 MG ORAL DAILY, (Reported) Metoprolol Tartrate* (Metoprolol Tartrate*), 50 MG ORAL EVERY 12 HOURS, ( Reported) Nifedipine (Nifedipine*), 90 MG ORAL DAILY, (Reported) Nifedipine Er* (Adalat Cc*), 90 MG ORAL DAILY, (Reported) Sennosides (Senna), 8.6 MG PO DAILY, (Reported) Vit B Cmplx 3/Fa/Vit C/Biotin (Nephro-Blaze Rx Tablet), 1 EACH PO DAILY, ( Reported) Scheduled PRN Acetaminophen* (Acetaminophen 325MG Tablet*), 325 MG ORAL Q4H PRN for MILD PAIN, (Reported) Acetaminophen* (Tylenol Extra Strength*), 500 MG ORAL Q8H PRN for Prn Headache/ Temp > 101 Hydralazine HCl (Hydralazine HCl), 25 MG PO Q6HR PRN for prn, (Reported) Hydrocodone Bit/Acetaminophen 5-325* ([place] 5-325 Tablet*), 1 TAB ORAL Q4H PRN for MODERATE TO SEVERE PAIN, (Reported) Ondansetron* (Zofran*), 4 MG ORAL Q6H PRN for Nausea & Vomiting, (Reported) Tramadol Hcl* (Ultram*), 50 MG ORAL Q6H PRN for For Pain Miscellaneous Medications Insulin Regular, Human (Humulin R), 0 SUBQ, (Reported) Unable to Obtain Medications (Unable To Obtain Meds), (Reported) Patient History Healthcare decision maker Resuscitation status Full Code Advanced Directive on File Physical Exam Last 24 Hour Vital Signs Date Time Temp Pulse Resp B/P (MAP) Pulse Ox O2 Delivery O2 Flow Rate FiO2 10/12/18 12:00 97.0 71 16 153/62 (92) 96 10/12/18 09:14 68 154/68 10/12/18 09:14 154/88 10/12/18 09:14 154/88 10/12/18 09:13 68 154/68 10/12/18 09:00 Room Air 10/12/18 08:00 98.2 68 20 154/68 (96) 96 10/12/18 04:41 97.9 65 20 138/61 (86) 95 10/12/18 00:26 98.5 68 20 147/53 (84) 94 10/11/18 21:54 73 142/60 10/11/18 21:00 Room Air 10/11/18 20:25 73 20 142/60 (87) 95 Intake and Output 10/11/18 10/12/18 19:00 07:00 Intake Total 2600 ml Balance 2600 ml Intake Oral 2600 ml # Voids 4 # Bowel Movements 3 Laboratory Tests Test 10/11/18 19:05 10/12/18 06:10 Stool Occult Blood Positive (NEGATIVE) White Blood Count 4.6 K/UL (4.8-10.8) L Red Blood Count 2.94 M/UL (4.20-5.40) L Hemoglobin 9.0 G/DL (12.0-16.0) L Hematocrit 26.1 % (37.0-47.0) L Mean Corpuscular Volume 89 FL (80-99) Mean Corpuscular Hemoglobin 30.7 PG (27.0-31.0) Mean Corpuscular Hemoglobin Concent 34.6 G/DL (32.0-36.0) Red Cell Distribution Width 13.2 % (11.6-14.8) Platelet Count 236 K/UL (150-450) Mean Platelet Volume 6.8 FL (6.5-10.1) Neutrophils (%) (Auto) 68.1 % (45.0-75.0) Lymphocytes (%) (Auto) 17.7 % (20.0-45.0) L Monocytes (%) (Auto) 8.5 % (1.0-10.0) Eosinophils (%) (Auto) 4.4 % (0.0-3.0) H Basophils (%) (Auto) 1.3 % (0.0-2.0) Prothrombin Time 11.3 SEC (9.30-11.50) Prothromb Time International Ratio 1.1 (0.9-1.1) Activated Partial Thromboplast Time 33 SEC (23-33) Sodium Level 134 MMOL/L (136-145) L Potassium Level 5.2 MMOL/L (3.5-5.1) H Chloride Level 98 MMOL/L (98-107) Carbon Dioxide Level 25 MMOL/L (21-32) Anion Gap 11 mmol/L (5-15) Blood Urea Nitrogen 76 mg/dL (7-18) H Creatinine 6.8 MG/DL (0.55-1.30) H Estimat Glomerular Filtration Rate 6.0 mL/min (>60) Glucose Level 97 MG/DL (74-106) Calcium Level 8.0 MG/DL (8.5-10.1) L C-Reactive Protein, Quantitative 5.3 mg/dL (0.00-0.90) H Height (Feet): 5 Height (Inches): 5.00 Weight (Pounds): 177 Medications Current Medications Medications (Trade) Dose Ordered Sig/Toya Route PRN Reason Start Time Stop Time Status Last Admin Dose Admin Acetaminophen (Tylenol) 500 mg Q6H PRN ORAL Prn Headache/Temp > 101 10/10/18 15:52 11/05/18 15:51 Aspirin (ASA) 81 mg DAILY ORAL 10/11/18 09:00 11/06/18 08:59 10/12/18 09:15 Atorvastatin Calcium (Lipitor) 40 mg BEDTIME ORAL 10/10/18 21:00 11/05/18 20:59 10/11/18 22:01 Dextrose (Dextrose 50%) 25 ml Q30M PRN IV Hypoglycemia 10/10/18 16:15 11/05/18 19:44 Dextrose (Dextrose 50%) 50 ml Q30M PRN IV Hypoglycemia 10/10/18 16:15 11/05/18 19:44 10/12/18 16:48 Docusate Sodium (Colace) 100 mg TID ORAL 10/10/18 18:00 11/05/18 17:59 10/12/18 17:45 Epoetin Panchito (Epoetin Panchito(ESRD on dialysis)) 10,000 unit THU-THU-THU SUBQ 10/11/18 21:00 11/07/18 20:59 10/11/18 21:54 Folic Acid (Folate) 1 mg DAILY ORAL 10/11/18 09:00 11/06/18 08:59 10/12/18 09:15 Gabapentin (Neurontin) 100 mg THREE TIMES A DAY ORAL 10/10/18 18:00 11/05/18 17:59 10/12/18 17:45 Gabapentin (Neurontin) 300 mg BEDTIME ORAL 10/10/18 21:00 11/05/18 20:59 10/11/18 21:54 Heparin Sodium (Porcine) (Heparin 5000 units/ml) 5,000 units EVERY 12 HOURS SUBQ 10/10/18 21:00 11/06/18 20:59 10/12/18 09:16 Hydralazine HCl (Apresoline) 25 mg Q6H PRN ORAL SBP > 160mmHg 10/10/18 15:53 11/05/18 15:52 10/11/18 13:53 Insulin Aspart (NovoLOG) BEFORE MEALS AND HS SUBQ 10/10/18 16:30 11/05/18 20:59 10/12/18 12:16 Insulin Aspart (NovoLOG) 5 units BEFORE MEALS SUBQ 10/10/18 16:30 11/06/18 06:29 10/12/18 12:17 Insulin Detemir (Levemir) 12 units Q12HR SUBQ 10/10/18 21:00 11/09/18 08:59 10/12/18 09:16 Isosorbide Mononitrate (Imdur) 30 mg DAILY ORAL 10/11/18 09:00 11/08/18 08:59 10/12/18 09:14 Levothyroxine Sodium (Synthroid) 50 mcg ACBREAKFAST ORAL 10/11/18 06:30 11/06/18 06:29 10/12/18 06:03 Lisinopril (Prinivil) 20 mg DAILY ORAL 10/11/18 09:00 11/06/18 08:59 10/12/18 09:14 Metoprolol Tartrate (Lopressor) 100 mg EVERY 12 HOURS ORAL 10/10/18 21:00 11/05/18 20:59 10/12/18 09:14 Nifedipine (Procardia XL) 60 mg DAILY ORAL 10/11/18 09:00 11/06/18 08:59 10/12/18 09:13 Ondansetron HCl (Zofran) 4 mg Q6H PRN ORAL Nausea & Vomiting 10/10/18 16:45 11/05/18 16:44 10/11/18 13:53 Pantoprazole (Protonix) 40 mg Q12HR ORAL 10/11/18 21:00 11/05/18 16:59 10/12/18 09:12 Sennosides (Senokot) 8.6 mg DAILY ORAL 10/11/18 09:00 11/06/18 08:59 10/12/18 09:12 Sevelamer Carbonate (Renvela) 2,400 mg THREE TIMES A DAY ORAL 10/10/18 18:00 11/07/18 12:59 10/12/18 17:45 Tramadol HCl (Ultram) 50 mg Q6H PRN ORAL For Pain 10/10/18 15:55 10/13/18 15:54 Assessment/Plan Assessment/Plan HEMATOLOGY/ONCOLOGY CONSULTATION CONSULTING PHYSICIAN: Carl Daniels M.D. REQUESTING PHYSICIAN: Makenna Daniel M.D. DOS: 10/12/18 REASON FOR CONSULTATION: Evaluation of anemia. IDENTIFYING DATA: Dear Dr. Daniel, The patient is a pleasant 67-year-old female with past medical history significant for end-stage renal disease, on hemodialysis three times a week, completed dialysis, who for approximately three hours has been having dizziness as well as nausea, has been seen by Nephrology Service, recently missed HD and represented back to the hospital. She reported no current loss of consciousness. No pulmonary embolism. No fever, no chills, no night sweats reported. The patient also noted to have a contusion in the shoulder, no acute fracture, and recommended weaning herself from the sling. No surgical intervention is recommended. PAST MEDICAL HISTORY: As noted above. MEDICATIONS: Reviewed. ALLERGIES: No known drug allergies. REVIEW OF SYSTEMS: CONSTITUTIONAL: No fever, chills, or night sweats. SKIN: No rashes, bumps, or itching. HEENT: No headache, hearing or vision changes. BREASTS: No lumps, pain, or discharge. PULMONARY: No cough, sputum, or shortness of breath. GASTROINTESTINAL: No nausea, vomiting, or diarrhea. GENITOURINARY: No dysuria, frequency, or urgency. MUSCULOSKELETAL: No joint swelling, muscle pain, or trauma. PHYSICAL EXAMINATION: VITAL SIGNS: Reviewed. GENERAL: No distress. PULMONARY: Decreased breath sounds. CARDIOVASCULAR: Regular rate. No S3 or S4. ABDOMEN: Soft, nontender, and nondistended. EXTREMITIES: No cyanosis, swelling, or edema. Current Medications Medications (Trade) Dose Ordered Sig/Toya Route PRN Reason Start Time Stop Time Status Last Admin Dose Admin Acetaminophen (Tylenol) 500 mg Q6H PRN ORAL Prn Headache/Temp > 101 10/10/18 15:52 11/05/18 15:51 Aspirin (ASA) 81 mg DAILY ORAL 10/11/18 09:00 11/06/18 08:59 10/12/18 09:15 Atorvastatin Calcium (Lipitor) 40 mg BEDTIME ORAL 10/10/18 21:00 11/05/18 20:59 10/11/18 22:01 Dextrose (Dextrose 50%) 25 ml Q30M PRN IV Hypoglycemia 10/10/18 16:15 11/05/18 19:44 Dextrose (Dextrose 50%) 50 ml Q30M PRN IV Hypoglycemia 10/10/18 16:15 11/05/18 19:44 10/12/18 16:48 Docusate Sodium (Colace) 100 mg TID ORAL 10/10/18 18:00 11/05/18 17:59 10/12/18 17:45 Epoetin Panchito (Epoetin Panchito(ESRD on dialysis)) 10,000 unit THU-THU-THU SUBQ 10/11/18 21:00 11/07/18 20:59 10/11/18 21:54 Folic Acid (Folate) 1 mg DAILY ORAL 10/11/18 09:00 11/06/18 08:59 10/12/18 09:15 Gabapentin (Neurontin) 100 mg THREE TIMES A DAY ORAL 10/10/18 18:00 11/05/18 17:59 10/12/18 17:45 Gabapentin (Neurontin) 300 mg BEDTIME ORAL 10/10/18 21:00 11/05/18 20:59 10/11/18 21:54 Heparin Sodium (Porcine) (Heparin 5000 units/ml) 5,000 units EVERY 12 HOURS SUBQ 10/10/18 21:00 11/06/18 20:59 10/12/18 09:16 Hydralazine HCl (Apresoline) 25 mg Q6H PRN ORAL SBP > 160mmHg 10/10/18 15:53 11/05/18 15:52 10/11/18 13:53 Insulin Aspart (NovoLOG) BEFORE MEALS AND HS SUBQ 10/10/18 16:30 11/05/18 20:59 10/12/18 12:16 Insulin Aspart (NovoLOG) 5 units BEFORE MEALS SUBQ 10/10/18 16:30 11/06/18 06:29 10/12/18 12:17 Insulin Detemir (Levemir) 12 units Q12HR SUBQ 10/10/18 21:00 11/09/18 08:59 10/12/18 09:16 Isosorbide Mononitrate (Imdur) 30 mg DAILY ORAL 10/11/18 09:00 11/08/18 08:59 10/12/18 09:14 Levothyroxine Sodium (Synthroid) 50 mcg ACBREAKFAST ORAL 10/11/18 06:30 11/06/18 06:29 10/12/18 06:03 Lisinopril (Prinivil) 20 mg DAILY ORAL 10/11/18 09:00 11/06/18 08:59 10/12/18 09:14 Metoprolol Tartrate (Lopressor) 100 mg EVERY 12 HOURS ORAL 10/10/18 21:00 11/05/18 20:59 10/12/18 09:14 Nifedipine (Procardia XL) 60 mg DAILY ORAL 10/11/18 09:00 11/06/18 08:59 10/12/18 09:13 Ondansetron HCl (Zofran) 4 mg Q6H PRN ORAL Nausea & Vomiting 10/10/18 16:45 11/05/18 16:44 10/11/18 13:53 Pantoprazole (Protonix) 40 mg Q12HR ORAL 10/11/18 21:00 11/05/18 16:59 10/12/18 09:12 Sennosides (Senokot) 8.6 mg DAILY ORAL 10/11/18 09:00 11/06/18 08:59 10/12/18 09:12 Sevelamer Carbonate (Renvela) 2,400 mg THREE TIMES A DAY ORAL 10/10/18 18:00 11/07/18 12:59 10/12/18 17:45 Tramadol HCl (Ultram) 50 mg Q6H PRN ORAL For Pain 10/10/18 15:55 10/13/18 15:54 Last 24 Hour Vital Signs Date Time Temp Pulse Resp B/P (MAP) Pulse Ox O2 Delivery O2 Flow Rate FiO2 10/12/18 12:00 97.0 71 16 153/62 (92) 96 10/12/18 09:14 68 154/68 10/12/18 09:14 154/88 10/12/18 09:14 154/88 10/12/18 09:13 68 154/68 10/12/18 09:00 Room Air 10/12/18 08:00 98.2 68 20 154/68 (96) 96 10/12/18 04:41 97.9 65 20 138/61 (86) 95 10/12/18 00:26 98.5 68 20 147/53 (84) 94 10/11/18 21:54 73 142/60 10/11/18 21:00 Room Air 10/11/18 20:25 73 20 142/60 (87) 95 Laboratory Tests Test 10/11/18 19:05 10/12/18 06:10 Stool Occult Blood Positive (NEGATIVE) White Blood Count 4.6 K/UL (4.8-10.8) L Red Blood Count 2.94 M/UL (4.20-5.40) L Hemoglobin 9.0 G/DL (12.0-16.0) L Hematocrit 26.1 % (37.0-47.0) L Mean Corpuscular Volume 89 FL (80-99) Mean Corpuscular Hemoglobin 30.7 PG (27.0-31.0) Mean Corpuscular Hemoglobin Concent 34.6 G/DL (32.0-36.0) Red Cell Distribution Width 13.2 % (11.6-14.8) Platelet Count 236 K/UL (150-450) Mean Platelet Volume 6.8 FL (6.5-10.1) Neutrophils (%) (Auto) 68.1 % (45.0-75.0) Lymphocytes (%) (Auto) 17.7 % (20.0-45.0) L Monocytes (%) (Auto) 8.5 % (1.0-10.0) Eosinophils (%) (Auto) 4.4 % (0.0-3.0) H Basophils (%) (Auto) 1.3 % (0.0-2.0) Prothrombin Time 11.3 SEC (9.30-11.50) Prothromb Time International Ratio 1.1 (0.9-1.1) Activated Partial Thromboplast Time 33 SEC (23-33) Sodium Level 134 MMOL/L (136-145) L Potassium Level 5.2 MMOL/L (3.5-5.1) H Chloride Level 98 MMOL/L (98-107) Carbon Dioxide Level 25 MMOL/L (21-32) Anion Gap 11 mmol/L (5-15) Blood Urea Nitrogen 76 mg/dL (7-18) H Creatinine 6.8 MG/DL (0.55-1.30) H Estimat Glomerular Filtration Rate 6.0 mL/min (>60) Glucose Level 97 MG/DL (74-106) Calcium Level 8.0 MG/DL (8.5-10.1) L C-Reactive Protein, Quantitative 5.3 mg/dL (0.00-0.90) H Assessment/Plan 1. Anemia due to underlying chronic disease. Have reviewed prior workup, ferritin is >1000, though percent saturation Tsat <30, but not recommended for further iron --> Continue to closely monitor. --> Agree with neprhology to transfuse if hgb <7 --> give epogen, has been started once a week --> monitor for gi bleed 2. Leukopenia likely reactive process v infection --> hepatitis and hiv prior negative --> trending stable --> imaging reviewed and no hsm / cirrhosis noted 3. End-stage renal disease, on hemodialysis three times a week. 4. History of coronary artery disease. 5. History of anemia due to low B12, low iron. --> b12 is currently within normal limits 6. Dizziness and unsteady gait. Carl Daniels MD Oct 12, 2018 17:47
[2018-10-12 20:00] VITALS: BP 159/66
[2018-10-12] MEDS: Atorvastatin 20mg tab ORAL SCH (21:49)
--- NOTE | 2018-10-12 22:05 | General Progress Note ---
Assessment/Plan Problem List: (1) Diabetic nephropathy with proteinuria ICD Codes: E11.21 - Type 2 diabetes mellitus with diabetic nephropathy SNOMED: 82214590, 179002169 (2) Dyspnea ICD Codes: R06.00 - Dyspnea, unspecified SNOMED: 149097241 Qualifiers: Qualified Codes: R06.00 - Dyspnea, unspecified (3) ESRD (end stage renal disease) ICD Codes: N18.6 - End stage renal disease SNOMED: 78432944 (4) Hyperkalemia, diminished renal excretion ICD Codes: E87.5 - Hyperkalemia SNOMED: 80058331 (5) Hypertensive kidney disease ICD Codes: I12.9 - Hypertensive chronic kidney disease with stage 1 through stage 4 chronic kidney disease, or unspecified chronic kidney disease SNOMED: 85936917 (6) ACS (acute coronary syndrome) ICD Codes: I24.9 - Acute ischemic heart disease, unspecified SNOMED: 139010288 (7) Pneumonia ICD Codes: J18.9 - Pneumonia, unspecified organism SNOMED: 260008736 Status: progressing Assessment/Plan s/p gi bleed unstable for dc anemia esrd on hd s/p transfusion htn niddm no cp dyspnea improved lyte abnormality Subjective Allergies: Coded Allergies: No Known Allergies (Unverified , 05/12/17) Objective Last 24 Hour Vital Signs Date Time Temp Pulse Resp B/P (MAP) Pulse Ox O2 Delivery O2 Flow Rate FiO2 10/12/18 21:00 72 159/66 10/12/18 21:00 Room Air 10/12/18 20:00 98.4 72 20 159/66 (97) 100 10/12/18 16:00 97.5 61 16 142/56 (84) 98 10/12/18 12:00 97.0 71 16 153/62 (92) 96 10/12/18 09:14 68 154/68 10/12/18 09:14 154/88 10/12/18 09:14 154/88 10/12/18 09:13 68 154/68 10/12/18 09:00 Room Air 10/12/18 08:00 98.2 68 20 154/68 (96) 96 10/12/18 04:41 97.9 65 20 138/61 (86) 95 10/12/18 00:26 98.5 68 20 147/53 (84) 94 Intake and Output 3/11/19 3/12/19 19:00 07:00 Intake Total 2600 ml Balance 2600 ml Intake Oral 2600 ml # Voids 4 # Bowel Movements 3 Laboratory Tests 10/12/18 06:10: White Blood Count 4.6L, Red Blood Count 2.94L, Hemoglobin 9.0L, Hematocrit 26.1L , Mean Corpuscular Volume 89, Mean Corpuscular Hemoglobin 30.7, Mean Corpuscular Hemoglobin Concent 34.6, Red Cell Distribution Width 13.2, Platelet Count 236, Mean Platelet Volume 6.8, Neutrophils (%) (Auto) 68.1, Lymphocytes (% ) (Auto) 17.7L, Monocytes (%) (Auto) 8.5, Eosinophils (%) (Auto) 4.4H, Basophils (%) (Auto) 1.3, Prothrombin Time 11.3, Prothromb Time International Ratio 1.1, Activated Partial Thromboplast Time 33, Sodium Level 134L, Potassium Level 5.2H, Chloride Level 98, Carbon Dioxide Level 25, Anion Gap 11, Blood Urea Nitrogen 76H, Creatinine 6.8H, Estimat Glomerular Filtration Rate 6.0, Glucose Level 97, Calcium Level 8.0L, C-Reactive Protein, Quantitative 5.3H, Total Protein (PEP) [Pending], Albumin (PEP) [Pending], Globulin (PEP) [Pending] , Albumin/Globulin Ratio [Pending], [id number] [Pending], Alpha-2- Globulins [Pending], Beta Globulins [Pending], Beta Gamma Globulin [Pending], PEP Abnormal Protein Bands [Pending], Protein Electrophoresis Interpret [Pending ] Height (Feet): 5 Height (Inches): 5.00 Weight (Pounds): 177 EENT: PERRL/EOMI Neck: supple Cardiovascular: normal rate Respiratory/Chest: lungs clear Makenna Daniel MD Oct 12, 2018 22:05
[2018-10-13] VITALS (10 sets, daily range): BP systolic 109–164; BP diastolic 44–65
[2018-10-13 05:59] LABS: BASOPHILS % (AUTO) 1.8 % (0.0-2.0); EOSINOPHILS % (AUTO) 4.6 % (0.0-3.0); HEMATOCRIT 28.6 % (37.0-47.0); HEMOGLOBIN 9.6 G/DL (12.0-16.0); LYMPHOCYTES % (AUTO) 20.1 % (20.0-45.0); MEAN CORPUSCULAR VOLUME 90 FL (80-99); MONOCYTES % (AUTO) 9.9 % (1.0-10.0); NEUTROPHILS % (AUTO) 63.6 % (45.0-75.0); PLATELET COUNT 269 K/UL (150-450); RED BLOOD COUNT 3.16 M/UL (4.20-5.40); RED CELL DISTRIBUTION WIDTH 13.3 % (11.6-14.8); WHITE BLOOD COUNT 3.5 K/UL (4.8-10.8)
[2018-10-13 06:18] LABS: ANION GAP 10 mmol/L (5-15); BLOOD UREA NITROGEN 42 mg/dL (7-18); CALCIUM 8.3 MG/DL (8.5-10.1); CARBON DIOXIDE 27 MMOL/L (21-32); CHLORIDE 98 MMOL/L (98-107); CREATININE 5.6 MG/DL (0.55-1.30); SODIUM 135 MMOL/L (136-145)
[2018-10-13 06:20] LABS: INR 1.1 (0.9-1.1)
[2018-10-13 06:22] LABS: ALANINE AMINOTRANSFERASE 12 U/L (12-78); ALBUMIN 3.3 G/DL (3.4-5.0); ALBUMIN/GLOBULIN RATIO 0.8 (1.0-2.7); ALKALINE PHOSPHATASE 126 U/L (46-116); ASPARTATE AMINO TRANSFERASE 13 U/L (15-37); BILIRUBIN,TOTAL 0.5 MG/DL (0.2-1.0)
[2018-10-13 06:30] LABS: PHOSPHORUS 5.1 MG/DL (2.5-4.9)
[2018-10-13] MEDS: NovoLOG Insulin Flexpen SUBQ SCH ×2 (06:30→12:44)
--- NOTE | 2018-10-13 06:34 | General Progress Note ---
Assessment/Plan Problem List: (1) Diabetic nephropathy with proteinuria ICD Codes: E11.21 - Type 2 diabetes mellitus with diabetic nephropathy SNOMED: 11366490, 699340667 (2) ESRD (end stage renal disease) ICD Codes: N18.6 - End stage renal disease SNOMED: 50573857 (3) Hyperkalemia, diminished renal excretion ICD Codes: E87.5 - Hyperkalemia SNOMED: 75421909 Assessment/Plan continue Levemir 12 units bid DC Novolog 5 units ac tid continue NISS ac / hs continue Levothyroxine 50 mcg daily Subjective Allergies: Coded Allergies: No Known Allergies (Unverified , 05/12/17) All Systems: reviewed and negative except above Subjective events noted NPO Levemir was held Item Value Date Time Glucose Level 162 MG/DL H 10/13/18 0545 Bedside Blood Glucose 322 mg/dl H 10/12/18 2100 Bedside Blood Glucose 57 mg/dl L 10/12/18 1718 Bedside Blood Glucose 166 mg/dl H 10/12/18 1217 Bedside Blood Glucose 111 mg/dl 10/12/18 0916 Bedside Blood Glucose 111 mg/dl 10/12/18 0629 Objective Last 24 Hour Vital Signs Date Time Temp Pulse Resp B/P (MAP) Pulse Ox O2 Delivery O2 Flow Rate FiO2 10/13/18 00:00 99.0 65 159/62 (94) 10/12/18 21:00 72 159/66 10/12/18 21:00 Room Air 10/12/18 20:00 98.4 72 20 159/66 (97) 100 10/12/18 16:00 97.5 61 16 142/56 (84) 98 10/12/18 12:00 97.0 71 16 153/62 (92) 96 10/12/18 09:14 68 154/68 10/12/18 09:14 154/88 10/12/18 09:14 154/88 10/12/18 09:13 68 154/68 10/12/18 09:00 Room Air 10/12/18 08:00 98.2 68 20 154/68 (96) 96 Intake and Output 10/12/18 10/13/18 19:00 07:00 Intake Total 2000 ml Balance 2000 ml Intake Oral 2000 ml # Voids 3 # Bowel Movements 7 Laboratory Tests 10/13/18 05:45: White Blood Count 3.5L, Red Blood Count 3.16L, Hemoglobin 9.6L, Hematocrit 28.6L , Mean Corpuscular Volume 90, Mean Corpuscular Hemoglobin 30.5, Mean Corpuscular Hemoglobin Concent 33.7, Red Cell Distribution Width 13.3, Platelet Count 269, Mean Platelet Volume 5.8L, Neutrophils (%) (Auto) 63.6, Lymphocytes ( %) (Auto) 20.1, Monocytes (%) (Auto) 9.9, Eosinophils (%) (Auto) 4.6H, Basophils (%) (Auto) 1.8, Prothrombin Time 11.4, Prothromb Time International Ratio 1.1, Activated Partial Thromboplast Time 32, Sodium Level 135L, Potassium Level 4.0, Chloride Level 98, Carbon Dioxide Level 27, Anion Gap 10, Blood Urea Nitrogen 42H, Creatinine 5.6H, Estimat Glomerular Filtration Rate 7.5, Glucose Level 162H, Uric Acid 4.3, Calcium Level 8.3L, Phosphorus Level 5.1H, Total Bilirubin 0.5, Aspartate Amino Transf (AST/SGOT) 13L, Alanine Aminotransferase ( ALT/SGPT) 12, Alkaline Phosphatase 126H, Pro-B-Type Natriuretic Peptide [Pending ], Total Protein 7.4, Albumin 3.3L, Globulin 4.1, Albumin/Globulin Ratio 0.8L Height (Feet): 5 Height (Inches): 5.00 Weight (Pounds): 177 General Appearance: no apparent distress Neck: normal alignment Cardiovascular: normal peripheral pulses Respiratory/Chest: normal breath sounds Abdomen: normal bowel sounds Objective Current Medications Medications (Trade) Dose Ordered Sig/Toya Route PRN Reason Start Time Stop Time Status Last Admin Dose Admin Acetaminophen (Tylenol) 500 mg Q6H PRN ORAL Prn Headache/Temp > 101 10/10/18 15:52 11/05/18 15:51 Aspirin (ASA) 81 mg DAILY ORAL 10/11/18 09:00 11/06/18 08:59 10/12/18 09:15 Atorvastatin Calcium (Lipitor) 40 mg BEDTIME ORAL 10/10/18 21:00 11/05/18 20:59 10/12/18 21:49 Dextrose (Dextrose 50%) 25 ml Q30M PRN IV Hypoglycemia 10/10/18 16:15 11/05/18 19:44 Dextrose (Dextrose 50%) 50 ml Q30M PRN IV Hypoglycemia 10/10/18 16:15 11/05/18 19:44 10/12/18 16:48 Docusate Sodium (Colace) 100 mg TID ORAL 10/10/18 18:00 11/05/18 17:59 10/12/18 17:45 Epoetin Panchito (Epoetin Panchito(ESRD on dialysis)) 10,000 unit THU-THU-THU SUBQ 10/11/18 21:00 11/07/18 20:59 10/11/18 21:54 Folic Acid (Folate) 1 mg DAILY ORAL 10/11/18 09:00 11/06/18 08:59 10/12/18 09:15 Gabapentin (Neurontin) 100 mg THREE TIMES A DAY ORAL 10/10/18 18:00 11/05/18 17:59 10/12/18 17:45 Gabapentin (Neurontin) 300 mg BEDTIME ORAL 10/10/18 21:00 11/05/18 20:59 10/12/18 21:00 Heparin Sodium (Porcine) (Heparin 5000 units/ml) 5,000 units EVERY 12 HOURS SUBQ 10/10/18 21:00 11/06/18 20:59 10/12/18 09:16 Hydralazine HCl (Apresoline) 25 mg Q6H PRN ORAL SBP > 160mmHg 10/10/18 15:53 11/05/18 15:52 10/11/18 13:53 Insulin Aspart (NovoLOG) BEFORE MEALS AND HS SUBQ 10/10/18 16:30 11/05/18 20:59 10/12/18 12:16 Insulin Aspart (NovoLOG) 5 units BEFORE MEALS SUBQ 10/10/18 16:30 11/06/18 06:29 10/12/18 12:17 Insulin Detemir (Levemir) 12 units Q12HR SUBQ 10/10/18 21:00 11/09/18 08:59 10/12/18 09:16 Isosorbide Mononitrate (Imdur) 30 mg DAILY ORAL 10/11/18 09:00 11/08/18 08:59 10/12/18 09:14 Levothyroxine Sodium (Synthroid) 50 mcg ACBREAKFAST ORAL 10/11/18 06:30 11/06/18 06:29 10/12/18 06:03 Lisinopril (Prinivil) 20 mg DAILY ORAL 10/11/18 09:00 11/06/18 08:59 10/12/18 09:14 Metoprolol Tartrate (Lopressor) 100 mg EVERY 12 HOURS ORAL 10/10/18 21:00 11/05/18 20:59 10/12/18 21:00 Nifedipine (Procardia XL) 60 mg DAILY ORAL 10/11/18 09:00 11/06/18 08:59 10/12/18 09:13 Ondansetron HCl (Zofran) 4 mg Q6H PRN ORAL Nausea & Vomiting 10/10/18 16:45 11/05/18 16:44 10/11/18 13:53 Pantoprazole (Protonix) 40 mg Q12HR ORAL 10/11/18 21:00 11/05/18 16:59 10/12/18 21:49 Sennosides (Senokot) 8.6 mg DAILY ORAL 10/11/18 09:00 11/06/18 08:59 10/12/18 09:12 Sevelamer Carbonate (Renvela) 2,400 mg THREE TIMES A DAY ORAL 10/10/18 18:00 11/07/18 12:59 10/12/18 17:45 Tramadol HCl (Ultram) 50 mg Q6H PRN ORAL For Pain 10/10/18 15:55 10/13/18 15:54 Lavell Archer MD Oct 13, 2018 06:34
[2018-10-13] MEDS ORDERED: Midazolam 2mg/2ml Inj ONE (08:10)
[2018-10-13] MEDS: Docusate 100mg cap ORAL SCH ×2 (08:46→12:40)
[2018-10-13] MEDS: Aspirin Baby 81mg ORAL SCH (08:46)
[2018-10-13] MEDS: Imdur 30mg tab ORAL SCH ×2 (08:46→11:54)
[2018-10-13] MEDS: Heparin 5000 units/ml inj SUBQ SCH (08:47)
[2018-10-13] MEDS: Sennosides 8.6mg tab ORAL SCH (08:47)
[2018-10-13] MEDS: Lisinopril 20mg tab ORAL SCH ×2 (08:47→11:55)
[2018-10-13] MEDS: Levemir Flexpen SUBQ SCH (08:48)
--- NOTE | 2018-10-13 08:56 | General Progress Note ---
Assessment/Plan Problem List: (1) Black tarry stools ICD Codes: K92.1 - Melena SNOMED: 053840563 (2) Anemia in chronic kidney disease (CKD) ICD Codes: N18.9 - Chronic kidney disease, unspecified; D63.1 - Anemia in chronic kidney disease SNOMED: 461643059 (3) Diabetic nephropathy with proteinuria ICD Codes: E11.21 - Type 2 diabetes mellitus with diabetic nephropathy SNOMED: 71699337, 732187769 (4) Hypertensive kidney disease ICD Codes: I12.9 - Hypertensive chronic kidney disease with stage 1 through stage 4 chronic kidney disease, or unspecified chronic kidney disease SNOMED: 46361422 (5) ESRD (end stage renal disease) ICD Codes: N18.6 - End stage renal disease SNOMED: 48515713 Assessment/Plan plan EGD and colonoscopy for today Subjective ROS Limited/Unobtainable: Yes Allergies: Coded Allergies: No Known Allergies (Unverified , 05/12/17) Objective Last 24 Hour Vital Signs Date Time Temp Pulse Resp B/P (MAP) Pulse Ox O2 Delivery O2 Flow Rate FiO2 10/13/18 08:47 74 147/60 10/13/18 08:47 74 147/60 10/13/18 08:47 147/60 10/13/18 08:46 147/60 10/13/18 08:00 97.7 75 19 149/61 (90) 96 10/13/18 04:00 98.7 74 18 147/60 (89) 100 10/13/18 00:00 99.0 65 159/62 (94) 10/12/18 21:00 72 159/66 10/12/18 21:00 Room Air 10/12/18 20:00 98.4 72 20 159/66 (97) 100 10/12/18 16:00 97.5 61 16 142/56 (84) 98 10/12/18 12:00 97.0 71 16 153/62 (92) 96 10/12/18 09:14 68 154/68 10/12/18 09:14 154/88 10/12/18 09:14 154/88 10/12/18 09:13 68 154/68 10/12/18 09:00 Room Air Intake and Output 10/12/18 10/13/18 19:00 07:00 Intake Total 2000 ml Balance 2000 ml Intake Oral 2000 ml # Voids 3 5 # Bowel Movements 7 4 Laboratory Tests 10/13/18 05:45: White Blood Count 3.5L, Red Blood Count 3.16L, Hemoglobin 9.6L, Hematocrit 28.6L , Mean Corpuscular Volume 90, Mean Corpuscular Hemoglobin 30.5, Mean Corpuscular Hemoglobin Concent 33.7, Red Cell Distribution Width 13.3, Platelet Count 269, Mean Platelet Volume 5.8L, Neutrophils (%) (Auto) 63.6, Lymphocytes ( %) (Auto) 20.1, Monocytes (%) (Auto) 9.9, Eosinophils (%) (Auto) 4.6H, Basophils (%) (Auto) 1.8, Prothrombin Time 11.4, Prothromb Time International Ratio 1.1, Activated Partial Thromboplast Time 32, Sodium Level 135L, Potassium Level 4.0, Chloride Level 98, Carbon Dioxide Level 27, Anion Gap 10, Blood Urea Nitrogen 42H, Creatinine 5.6H, Estimat Glomerular Filtration Rate 7.5, Glucose Level 162H, Uric Acid 4.3, Calcium Level 8.3L, Phosphorus Level 5.1H, Total Bilirubin 0.5, Aspartate Amino Transf (AST/SGOT) 13L, Alanine Aminotransferase ( ALT/SGPT) 12, Alkaline Phosphatase 126H, Pro-B-Type Natriuretic Peptide 88351J, Total Protein 7.4, Albumin 3.3L, Globulin 4.1, Albumin/Globulin Ratio 0.8L Height (Feet): 5 Height (Inches): 5.00 Weight (Pounds): 168 General Appearance: alert EENT: normal ENT inspection Neck: supple Cardiovascular: normal rate Respiratory/Chest: decreased breath sounds Abdomen: normal bowel sounds, non tender, soft Extremities: non-tender Lito Cervantes MD Oct 13, 2018 08:56
--- NOTE | 2018-10-13 08:56 | Pre-Procedure Note/Attestation ---
Pre-Procedure Note/Attestation Complete Prior to Procedure Planned Procedure: not applicable Procedure Narrative: esophagogastroduodenoscopy and colonoscopy Indications for Procedure Pre-Operative Diagnosis: anemia Attestation I attest that I discussed the nature of the procedure; its benefits; risks and complications; and alternatives (and the risks and benefits of such alternatives ), prior to the procedure, with the patient (or the patient's legal food service sales representatives). I attest that, if there was a reasonable possibility of needing a blood transfusion, the patient (or the patient's legal food service sales representatives) was given the [facility] standardized written summary, pursuant to the Damien Bianka Blood Safety Act ([place] Health and Safety Code # 1645, as amended). I attest that I re-evaluated the patient just prior to the surgery and that there has been no change in the patient's H&P, except as documented below: Lito Cervantes MD Oct 13, 2018 08:56
[2018-10-13] MEDS ORDERED: LR 1000ml ONE (09:00)
[2018-10-13] MEDS ORDERED: NS 500ML IVPB ONE (09:00)
[2018-10-13] MEDS ORDERED: Propofol 200mg/20ml IV ONE (09:00)
[2018-10-13] MEDS ORDERED: Lidocaine 1% MPF 10mg/ml 5ml ONE (09:00)
[2018-10-13] MEDS ORDERED: LR 1000ml 1,000 ML IVLG SCH (09:13)
[2018-10-13] MEDS ORDERED: Metoclopramide 10mg/2ml Inj IVP PRN (09:15)
[2018-10-13] MEDS ORDERED: DiphenhydrAMINE 50mg/ml Inj IVP PRN (09:15)
[2018-10-13] MEDS ORDERED: oxyCODONE HCL/Acetaminophen 5/325mg ORAL PRN (09:15)
[2018-10-13] MEDS ORDERED: Hydromorphone 0.5mg/0.5ml inj IVP PRN (09:15)
[2018-10-13] MEDS ORDERED: HYDROcodone/Acetamin 5/325 tab ORAL PRN (09:15)
[2018-10-13] MEDS ORDERED: fentaNYL 100 mcg/2 mL IV PRN (09:15)
[2018-10-13] MEDS ORDERED: HYDROcodone/Acetamin 7.5/325 tab ORAL PRN (09:15)
[2018-10-13] MEDS ORDERED: Atropine Sulfate 0.4mg/ml inj IVP PRN (09:15)
[2018-10-13] MEDS ORDERED: Midazolam 2mg/2ml Inj IVP PRN (09:15)
[2018-10-13] MEDS ORDERED: LORazepam Inj 2mg/ml 1ml IV PRN (09:15)
[2018-10-13] MEDS ORDERED: Meperidine 50mg/ml Inj(FOR RIGORS ONLY) IVP PRN (09:15)
--- NOTE | 2018-10-13 09:22 | Anethesia Preoperative Eval ---
Anesthesia Pre-op PMH/ROS General Date of Evaluation: Oct 13, 2018 Time of Evaluation: 09:04 Anesthesiologist: Wilber ASA Score: ASA 3 Mallampati Score Class I : Soft palate, uvula, fauces, pillars visible Class II: Soft palate, uvula, fauces visible Class III: Soft palate, base of uvula visible Class IV: Only hard plate visible Mallampati Classification: Class II Surgeon: Billy Diagnosis: GI Bleed Surgical Procedure: EGD, Colonoscopy Anesthesia History: none Family History: no anesthesia problems Allergies: Coded Allergies: No Known Allergies (Unverified , 05/12/17) Medications: see eMAR Patient NPO?: Yes Past Medical History Cardiovascular: Reports: HTN Gastrointestinal/Genitourinary: Reports: ESRD, other - GI Bleed Endocrine: Reports: DM Hematology/Immune: Reports: anemia Anesthesia Pre-op Phys. Exam Physician Exam Last Vital Signs Date Time Temp Pulse Resp B/P (MAP) Pulse Ox O2 Delivery O2 Flow Rate FiO2 10/13/18 08:47 74 147/60 10/13/18 08:00 97.7 19 96 10/12/18 21:00 Room Air 10/11/18 14:06 21 10/09/18 08:50 3.0 Constitutional: NAD Neurologic: CN 2-12 intact Cardiovascular: RRR Respiratory: CTA Gastrointestinal: S/NT/ND Airway Exam Mallampati Score: Class III MO: limited ROM: limited Teeth: missing, intact Anesthesia Pre-op A/P Labs Hematology Test 10/13/18 05:45 White Blood Count 3.5 K/UL (4.8-10.8) L Red Blood Count 3.16 M/UL (4.20-5.40) L Hemoglobin 9.6 G/DL (12.0-16.0) L Hematocrit 28.6 % (37.0-47.0) L Mean Corpuscular Volume 90 FL (80-99) Mean Corpuscular Hemoglobin 30.5 PG (27.0-31.0) Mean Corpuscular Hemoglobin Concent 33.7 G/DL (32.0-36.0) Red Cell Distribution Width 13.3 % (11.6-14.8) Platelet Count 269 K/UL (150-450) Mean Platelet Volume 5.8 FL (6.5-10.1) L Neutrophils (%) (Auto) 63.6 % (45.0-75.0) Lymphocytes (%) (Auto) 20.1 % (20.0-45.0) Monocytes (%) (Auto) 9.9 % (1.0-10.0) Eosinophils (%) (Auto) 4.6 % (0.0-3.0) H Basophils (%) (Auto) 1.8 % (0.0-2.0) Coagulation Test 10/13/18 05:45 Prothrombin Time 11.4 SEC (9.30-11.50) Prothromb Time International Ratio 1.1 (0.9-1.1) Activated Partial Thromboplast Time 32 SEC (23-33) Chemistry Test 10/13/18 05:45 Sodium Level 135 MMOL/L (136-145) L Potassium Level 4.0 MMOL/L (3.5-5.1) Chloride Level 98 MMOL/L (98-107) Carbon Dioxide Level 27 MMOL/L (21-32) Anion Gap 10 mmol/L (5-15) Blood Urea Nitrogen 42 mg/dL (7-18) H Creatinine 5.6 MG/DL (0.55-1.30) H Estimat Glomerular Filtration Rate 7.5 mL/min (>60) Glucose Level 162 MG/DL (74-106) H Uric Acid 4.3 MG/DL (2.6-7.2) Calcium Level 8.3 MG/DL (8.5-10.1) L Phosphorus Level 5.1 MG/DL (2.5-4.9) H Total Bilirubin 0.5 MG/DL (0.2-1.0) Aspartate Amino Transf (AST/SGOT) 13 U/L (15-37) L Alanine Aminotransferase (ALT/SGPT) 12 U/L (12-78) Alkaline Phosphatase 126 U/L (46-116) H Pro-B-Type Natriuretic Peptide 76913 pg/mL (0-125) H Total Protein 7.4 G/DL (6.4-8.2) Albumin 3.3 G/DL (3.4-5.0) L Globulin 4.1 g/dL Albumin/Globulin Ratio 0.8 (1.0-2.7) L Risk Assessment & Plan Assessment: ASA 3 Plan: GA Status Change Before Surgery: No Audi Merino MD Oct 13, 2018 09:22
--- NOTE | 2018-10-13 09:25 | Immediate Post-Op Evaluation ---
Immediate Post-Op Evalulation Immediate Post-Op Evalulation Procedure: EGD, Colonoscopy Date of Evaluation: Oct 13, 2018 Time of Evaluation: 09:58 IV Fluids: 100 NS Blood Products: 0 Estimated Blood Loss: 8 Urinary Output: 0 Blood Pressure Systolic: 109 Blood Pressure Diastolic: 41 Pulse Rate: 66 Respiratory Rate: 16 O2 Sat by Pulse Oximetry: 100 Temperature (Fahrenheit): 98 Pain Score (1-10): 2 Nausea: No Vomiting: No Complications 0 Patient Status: awake, reacts, patent, none Hydration Status: adequate Audi Merino MD Oct 13, 2018 09:25
--- NOTE | 2018-10-13 09:26 | 48 Hour Post Anesthesia Eval ---
Post Anesthesia Evaluation Procedure: EGD, Colonoscopy Date of Evaluation: Oct 13, 2018 Airway: patent Nausea: No Vomiting: No Pain Intensity: 2 Hydration Status: adequate Cardiopulmonary Status: Stable Mental Status/LOC: patient returned to baseline Follow-up Care/Observations: 0 Post-Anesthesia Complications: 0 Follow-up care needed: N/A Audi Merino MD Oct 13, 2018 09:26
--- NOTE | 2018-10-13 09:45 | Endoscopy Procedure Note ---
Endoscopy Procedure Note General Indication for Procedure: anemia Procedures Performed: EGD, colonoscopy Operative Findings/Diagnosis: gastritis, 2 colon polyps Specimen: yes Pt Tolerated Procedure Well: Yes Estimated Blood Loss: none Anesthesia Anesthesiologist: Steve Anesthesia: MAC Inserted Devices Implant(s) used?: No Quality Quality of Bowel Preparation: Fair Did scope reach the cecum?: Yes Was there any complications?: No GI Core Measures 50 yrs or older w/o bx or poly: Not Applicable 10yrs. F/U not recommended: Not Applicable Lito Cervantes MD Oct 13, 2018 09:45
--- NOTE | 2018-10-13 09:52 | 48 Hour Post Anesthesia Eval ---
Post Anesthesia Evaluation Procedure: EGD, Colonoscopy Date of Evaluation: Oct 13, 2018 Time of Evaluation: 12:02 Blood Pressure Systolic: 162 0: 79 Pulse Rate: 66 Respiratory Rate: 18 Temperature (Fahrenheit): 98.2 O2 Sat by Pulse Oximetry: 100 Airway: patent Nausea: No Vomiting: No Pain Intensity: 2 Hydration Status: adequate Cardiopulmonary Status: Stable Mental Status/LOC: patient returned to baseline Follow-up Care/Observations: 0 Post-Anesthesia Complications: 0 Follow-up care needed: N/A Audi Merino MD Oct 13, 2018 09:52
--- NOTE | 2018-10-13 11:40 | Nephrology Progress Note ---
Assessment/Plan Problem List: (1) ESRD (end stage renal disease) (2) Hyperkalemia, diminished renal excretion (3) ACS (acute coronary syndrome) (4) Hypertensive kidney disease (5) Anemia in chronic kidney disease (CKD) Assessment - Hyperkalemia missed dialysis 3/4 - Volume overload - ESRD (end stage renal disease) missed HD 3/4 - Hypertensive kidney disease - h/o CAD - Diabetic nephropathy with proteinuria - h/o Anemia , low B12 and low Iron - h/o Dizziness and unsteady gait Plan Plan: transfused for Anemia- monitor H&H colonoscopy: gastritis, 2 colon polyps Venofer Renal diet- repeat CXR noted HTN, meds adjusted GI eval? HD next 10/14 gastric support, increase protonix Subjective ROS Limited/Unobtainable: No Constitutional: Reports: malaise Objective Objective Last 24 Hour Vital Signs Date Time Temp Pulse Resp B/P (MAP) Pulse Ox O2 Delivery O2 Flow Rate FiO2 10/13/18 10:20 98.3 60 21 136/54 100 Room Air 10/13/18 10:10 60 13 131/56 100 Room Air 10/13/18 10:02 66 16 145/56 99 Simple Mask 6 10/13/18 09:57 65 20 125/48 99 Simple Mask 6 10/13/18 09:52 98.0 66 15 109/44 99 Simple Mask 6 10/13/18 09:52 66 18 100 10/13/18 09:50 66 16 100 10/13/18 08:47 74 147/60 10/13/18 08:47 74 147/60 10/13/18 08:47 147/60 10/13/18 08:46 147/60 10/13/18 08:00 97.7 75 19 149/61 (90) 96 10/13/18 04:00 98.7 74 18 147/60 (89) 100 10/13/18 00:00 99.0 65 159/62 (94) 10/12/18 21:00 72 159/66 10/12/18 21:00 Room Air 10/12/18 20:00 98.4 72 20 159/66 (97) 100 10/12/18 16:00 97.5 61 16 142/56 (84) 98 10/12/18 12:00 97.0 71 16 153/62 (92) 96 Intake and Output 10/12/18 10/13/18 18:59 06:59 Intake Total 2000 ml Balance 2000 ml Intake Oral 2000 ml # Voids 3 5 # Bowel Movements 7 4 Laboratory Tests 10/13/18 05:45: White Blood Count 3.5L, Red Blood Count 3.16L, Hemoglobin 9.6L, Hematocrit 28.6L , Mean Corpuscular Volume 90, Mean Corpuscular Hemoglobin 30.5, Mean Corpuscular Hemoglobin Concent 33.7, Red Cell Distribution Width 13.3, Platelet Count 269, Mean Platelet Volume 5.8L, Neutrophils (%) (Auto) 63.6, Lymphocytes ( %) (Auto) 20.1, Monocytes (%) (Auto) 9.9, Eosinophils (%) (Auto) 4.6H, Basophils (%) (Auto) 1.8, Prothrombin Time 11.4, Prothromb Time International Ratio 1.1, Activated Partial Thromboplast Time 32, Sodium Level 135L, Potassium Level 4.0, Chloride Level 98, Carbon Dioxide Level 27, Anion Gap 10, Blood Urea Nitrogen 42H, Creatinine 5.6H, Estimat Glomerular Filtration Rate 7.5, Glucose Level 162H, Uric Acid 4.3, Calcium Level 8.3L, Phosphorus Level 5.1H, Total Bilirubin 0.5, Aspartate Amino Transf (AST/SGOT) 13L, Alanine Aminotransferase ( ALT/SGPT) 12, Alkaline Phosphatase 126H, Pro-B-Type Natriuretic Peptide 17198L, Total Protein 7.4, Albumin 3.3L, Globulin 4.1, Albumin/Globulin Ratio 0.8L Height (Feet): 5 Height (Inches): 5.00 Weight (Pounds): 168 General Appearance: no apparent distress Cardiovascular: normal rate Respiratory/Chest: lungs clear Abdomen: soft Objective no change Francis Falk MD Oct 13, 2018 11:40
--- NOTE | 2018-10-13 16:33 | General Progress Note ---
Assessment/Plan Assessment/Plan Assessment/Plan # Anemia due to underlying chronic disease. Have reviewed prior workup, ferritin is >1000, though percent saturation Tsat <30, but not recommended for further iron --> Continue to closely monitor. --> Agree with neprhology to transfuse if hgb <7 --> give epogen, has been started once a week --> monitor for gi bleed # Leukopenia likely reactive process v infection --> hepatitis and hiv prior negative --> trending stable --> imaging reviewed and no hsm / cirrhosis noted # End-stage renal disease, on hemodialysis three times a week. # History of coronary artery disease. # History of anemia due to low B12, low iron. --> b12 is currently within normal limits # Dizziness and unsteady gait. Subjective Constitutional: Denies: no symptoms, chills, diaphoresis, fever, malaise, weakness, other HEENT: Denies: no symptoms, eye pain, blurred vision, tearing, double vision, ear pain, ear discharge, nose pain, nose congestion, throat pain, throat swelling, mouth pain, mouth swelling, other Cardiovascular: Denies: no symptoms, chest pain, edema, irregular heart rate, lightheadedness, palpitations, syncope, other Respiratory: Denies: no symptoms, cough, orthopnea, shortness of breath, SOB with excertion, SOB at rest, sputum, stridor, wheezing, other Gastrointestinal/Abdominal: Denies: no symptoms, abdomen distended, abdominal pain, black stools, tarry stools, blood in stool, constipated, diarrhea, difficulty swallowing, nausea, poor appetite, poor fluid intake, rectal bleeding , vomiting, other Genitourinary: Denies: no symptoms, burning, discharge, frequency, flank pain, hematuria, incontinence, pain, urgency, other Neurologic/Psychiatric: Denies: no symptoms, anxiety, depressed, emotional problems, headache, numbness, paresthesia, pre-existing deficit, seizure, tingling, tremors, weakness, other Endocrine: Denies: no symptoms, excessive sweating, flushing, intolerance to cold, intolerance to heat, increased hunger, increased thirst, increased urine, unexplained weight gain, unexplained weight loss, other Hematologic/Lymphatic: Denies: no symptoms, anemia, easy bleeding, easy bruising, other Allergies: Coded Allergies: No Known Allergies (Unverified , 05/12/17) Subjective 10/13: seen by bedside, EGD and Colonoscopy done today, no events reported. Objective Last 24 Hour Vital Signs Date Time Temp Pulse Resp B/P (MAP) Pulse Ox O2 Delivery O2 Flow Rate FiO2 10/13/18 11:55 164/65 10/13/18 11:54 164/65 10/13/18 11:52 97.7 64 18 164/65 (98) 99 10/13/18 10:20 98.3 60 21 136/54 100 Room Air 10/13/18 10:10 60 13 131/56 100 Room Air 10/13/18 10:02 66 16 145/56 99 Simple Mask 6 10/13/18 09:57 65 20 125/48 99 Simple Mask 6 10/13/18 09:52 98.0 66 15 109/44 99 Simple Mask 6 10/13/18 09:52 66 18 100 10/13/18 09:50 66 16 100 10/13/18 09:00 Room Air 10/13/18 08:47 74 147/60 10/13/18 08:47 74 147/60 10/13/18 08:00 97.7 75 19 149/61 (90) 96 10/13/18 04:00 98.7 74 18 147/60 (89) 100 10/13/18 00:00 99.0 65 159/62 (94) 10/12/18 21:00 72 159/66 10/12/18 21:00 Room Air 10/12/18 20:00 98.4 72 20 159/66 (97) 100 Intake and Output 10/12/18 10/13/18 18:59 06:59 Intake Total 2000 ml Balance 2000 ml Intake Oral 2000 ml # Voids 3 5 # Bowel Movements 7 4 Laboratory Tests 10/13/18 05:45: White Blood Count 3.5L, Red Blood Count 3.16L, Hemoglobin 9.6L, Hematocrit 28.6L , Mean Corpuscular Volume 90, Mean Corpuscular Hemoglobin 30.5, Mean Corpuscular Hemoglobin Concent 33.7, Red Cell Distribution Width 13.3, Platelet Count 269, Mean Platelet Volume 5.8L, Neutrophils (%) (Auto) 63.6, Lymphocytes ( %) (Auto) 20.1, Monocytes (%) (Auto) 9.9, Eosinophils (%) (Auto) 4.6H, Basophils (%) (Auto) 1.8, Prothrombin Time 11.4, Prothromb Time International Ratio 1.1, Activated Partial Thromboplast Time 32, Sodium Level 135L, Potassium Level 4.0, Chloride Level 98, Carbon Dioxide Level 27, Anion Gap 10, Blood Urea Nitrogen 42H, Creatinine 5.6H, Estimat Glomerular Filtration Rate 7.5, Glucose Level 162H, Uric Acid 4.3, Calcium Level 8.3L, Phosphorus Level 5.1H, Total Bilirubin 0.5, Aspartate Amino Transf (AST/SGOT) 13L, Alanine Aminotransferase ( ALT/SGPT) 12, Alkaline Phosphatase 126H, Pro-B-Type Natriuretic Peptide 39901A, Total Protein 7.4, Albumin 3.3L, Globulin 4.1, Albumin/Globulin Ratio 0.8L Height (Feet): 5 Height (Inches): 5.00 Weight (Pounds): 168 Objective PHYSICAL EXAMINATION: VITAL SIGNS: Reviewed. GENERAL: No distress. PULMONARY: Decreased breath sounds. CARDIOVASCULAR: Regular rate. No S3 or S4. ABDOMEN: Soft, nontender, and nondistended. EXTREMITIES: No cyanosis, swelling, or edema. Carl Daniels MD Oct 13, 2018 16:33
--- NOTE | 2018-10-13 19:19 | Cardiology Progress Note ---
Assessment/Plan Assessment/Plan 1. Acute diastolic congestive heart failure, continue aggressive hemodialysis, continuation of diuretics and afterload reduction. 2. History of CVA/TIA, continue aspirin and atorvastatin. 3. History of diabetes mellitus. 4. History of hypertension, stage III, will optimize nifedipine, metoprolol and lisinopril, continue hydralazine on a p.r.n. basis. Subjective Subjective No cardiac events reported. Objective Last 24 Hour Vital Signs Date Time Temp Pulse Resp B/P (MAP) Pulse Ox O2 Delivery O2 Flow Rate FiO2 10/13/18 11:55 164/65 10/13/18 11:54 164/65 10/13/18 11:52 97.7 64 18 164/65 (98) 99 10/13/18 10:20 98.3 60 21 136/54 100 Room Air 10/13/18 10:10 60 13 131/56 100 Room Air 10/13/18 10:02 66 16 145/56 99 Simple Mask 6 10/13/18 09:57 65 20 125/48 99 Simple Mask 6 10/13/18 09:52 98.0 66 15 109/44 99 Simple Mask 6 10/13/18 09:52 66 18 100 10/13/18 09:50 66 16 100 10/13/18 09:00 Room Air 10/13/18 08:47 74 147/60 10/13/18 08:47 74 147/60 10/13/18 08:00 97.7 75 19 149/61 (90) 96 10/13/18 04:00 98.7 74 18 147/60 (89) 100 10/13/18 00:00 99.0 65 159/62 (94) 10/12/18 21:00 72 159/66 10/12/18 21:00 Room Air 10/12/18 20:00 98.4 72 20 159/66 (97) 100 Intake and Output 10/12/18 10/13/18 19:00 07:00 Intake Total 2000 ml Balance 2000 ml Intake Oral 2000 ml # Voids 3 5 # Bowel Movements 7 4 2D Echo: EF55%, Mild LVH, YUDELKA, Mild MR/AR, RAP~15mmHg, RVSP 55mmHg, Grade II LVDD Laboratory Tests Test 10/13/18 05:45 White Blood Count 3.5 K/UL (4.8-10.8) L Red Blood Count 3.16 M/UL (4.20-5.40) L Hemoglobin 9.6 G/DL (12.0-16.0) L Hematocrit 28.6 % (37.0-47.0) L Mean Corpuscular Volume 90 FL (80-99) Mean Corpuscular Hemoglobin 30.5 PG (27.0-31.0) Mean Corpuscular Hemoglobin Concent 33.7 G/DL (32.0-36.0) Red Cell Distribution Width 13.3 % (11.6-14.8) Platelet Count 269 K/UL (150-450) Mean Platelet Volume 5.8 FL (6.5-10.1) L Neutrophils (%) (Auto) 63.6 % (45.0-75.0) Lymphocytes (%) (Auto) 20.1 % (20.0-45.0) Monocytes (%) (Auto) 9.9 % (1.0-10.0) Eosinophils (%) (Auto) 4.6 % (0.0-3.0) H Basophils (%) (Auto) 1.8 % (0.0-2.0) Prothrombin Time 11.4 SEC (9.30-11.50) Prothromb Time International Ratio 1.1 (0.9-1.1) Activated Partial Thromboplast Time 32 SEC (23-33) Sodium Level 135 MMOL/L (136-145) L Potassium Level 4.0 MMOL/L (3.5-5.1) Chloride Level 98 MMOL/L (98-107) Carbon Dioxide Level 27 MMOL/L (21-32) Anion Gap 10 mmol/L (5-15) Blood Urea Nitrogen 42 mg/dL (7-18) H Creatinine 5.6 MG/DL (0.55-1.30) H Estimat Glomerular Filtration Rate 7.5 mL/min (>60) Glucose Level 162 MG/DL (74-106) H Uric Acid 4.3 MG/DL (2.6-7.2) Calcium Level 8.3 MG/DL (8.5-10.1) L Phosphorus Level 5.1 MG/DL (2.5-4.9) H Total Bilirubin 0.5 MG/DL (0.2-1.0) Aspartate Amino Transf (AST/SGOT) 13 U/L (15-37) L Alanine Aminotransferase (ALT/SGPT) 12 U/L (12-78) Alkaline Phosphatase 126 U/L (46-116) H Pro-B-Type Natriuretic Peptide 11957 pg/mL (0-125) H Total Protein 7.4 G/DL (6.4-8.2) Albumin 3.3 G/DL (3.4-5.0) L Globulin 4.1 g/dL Albumin/Globulin Ratio 0.8 (1.0-2.7) L Objective HEENT: Atraumatic and normocephalic. Anicteric. Pupils are equal, round, and reactive to light and accommodation. Extraocular muscles intact. NECK: JVP less than 5 cm. No carotid bruit. Carotid upstrokes 2+ bilaterally. CARDIOVASCULAR: Normal S1, S2. Regular rate and rhythm. No murmurs, gallops, or rubs. PMI is at fourth intercostal space in the midclavicular line. LUNGS: Clear to auscultation bilaterally. ABDOMEN: Soft, nontender, and nondistended. No hepatosplenomegaly. Positive bowel sounds. EXTREMITIES: No evidence of edema, clubbing, or cyanosis. Zev Alfonso MD Oct 13, 2018 19:19
--- NOTE | 2018-10-14 13:13 | Procedure Note ---
DATE OF PROCEDURE: 10/13/2018 SURGEON: Lito Cervantes M.D. REFERRING PHYSICIAN: Makenna Daniel M.D. PROCEDURE: Upper endoscopy with biopsy and colonoscopy with snare polypectomy and biopsy. ANESTHESIA: Per Dr. Quiñones. INSTRUMENT: Olympus adult flexible colonoscope and endoscope. INDICATION: Anemia and GI bleeding. REASON FOR PROCEDURE: The procedure, risks, benefits, and possible consequences, including hemorrhage, aspiration, perforation and infection, and alternative treatments, were explained to the patient/legal guardian by Dr. Lito Cervantes and the patient/legal guardian understood and accepted these risks. PROCEDURE IN DETAIL: After informed consent was obtained and the patient was adequately sedated, Olympus upper endoscope was advanced from the mouth to the second portion of the duodenum and retroflexion was performed in the stomach. The patient had evidence of diffuse gastritis. Random biopsy from antrum and body was obtained to rule out H. pylori infection. Otherwise, the rest of upper endoscopic examination was within normal limits. At this time, the upper endoscope was retrieved. The patient was turned over for colonoscopy. First, rectal exam was performed, which was normal. Then, the scope was advanced from the rectum into the cecum documented by the appendiceal orifice, ileocecal valve, and right upper quadrant palpation. Quality of the prep was fair. Examination of cecum was limited. Cecum was filled with the stool, so it is hard to rule out anything in the cecum. There was a polyp in the proximal ascending colon, sessile measured roughly about 5 mm, removed with cold snare polypectomy technique. There was another diminutive polyp in the transverse colon, removed with the cold biopsy forceps technique. The rest of the examination with a fair prep was within normal limits. Retroflexion of rectum showed evidence of medium-sized internal hemorrhoids. SUMMARY OF FINDINGS: 1. Gastritis. 2. Fair colonic prep. 3. Two colonic polyps removed, see above for details. 4. Internal hemorrhoids. RECOMMENDATIONS: 1. Follow up biopsy results and treat accordingly. 2. Given this prep, we will recommend at least repeat colonoscopy in three years. I want to thank Dr. Makenna Daniel for this kind referral. Lito Vosoghi, M.D. DR: LAURA JOB#: [id number] CC:
--- NOTE | 2018-10-14 15:53 | Discharge Summary ---
Discharge Summary Discharge Summary _ DATE OF ADMISSION: 10/06/2018 DATE OF DISCHARGE: 10/13/2018 DISCHARGED BY: Dr. Makenna Gavin CONSULTANTS: Dr. Chrissy Mabry [facility] COURSE: Patient is a 68-year-old female, who presented to ED for evaluation of shortness of breath and chest pain. Patient has a history of end-stage renal disease, on hemodialysis every Thursday, Thursday and Thursday. She has missed her dialysis because she was not feeling well. She had chest pain described to be sharp, 5 out of 10, and nonradiating. She denied any fever or chills. Denied nausea or vomiting. She has medical history significant for diabetes mellitus, hypertension, asthma, CVA/TIA, and renal disease. On evaluation at ED, blood work showed potassium of 6.0. Creatinine was 6.4. Troponin was 0.074. EKG showed sinus rhythm with peaked T waves in the anterior leads. Chest x-ray showed cardiomegaly with extensive bilateral diffuse pulmonary airspace disease. She was given insulin and D50. She was given calcium gluconate. She was given aspirin. She was admitted for evaluation of dyspnea, end-stage renal disease, hyperkalemia and ACS. She was placed on renal diet. She was given inpatient hemodialysis. She was given cutaneous heparin for DVT prophylaxis. She was given respiratory support. She was placed on Venturi mask. BP was elevated. She was given nifedipine, metoprolol and lisinopril. Patient had acute diastolic congestive heart failure, likely attributed to missed hemodialysis. She was given aggressive hemodialysis and diuretics for afterload reduction. She was given aspirin and atorvastatin. Blood sugar was monitored. She was placed on NovoLog sliding scale. She was given Levemir. Hemoglobin A1c 10. She was continued on levothyroxine 50 mcg daily. CTA of the chest showed patchy bilateral groundglass opacity, no central PE. On 10/10/2018, hemoglobin dropped to 7.4. There was reported dark stool. She was given 2 units packed RBC blood transfusion. Stool OB was positive x1. On 10/13/2018, she underwent upper and lower endoscopy. Patient had gastritis, internal hemorrhoids and 2 colonic polyps which were removed. Hemoglobin levels improved. Patient was discharged home. FINAL DIAGNOSES: Acute diastolic congestive heart failure CVA/TIA Diabetes mellitus, out of control Diabetic nephropathy with proteinuria Hypertension stage III Anemia of chronic kidney disease Leukopenia End-stage renal disease on hemodialysis Coronary artery disease Drop in hemoglobin requiring blood transfusion Hyperkalemia Hypertensive kidney disease Volume overload Gastritis Colonic polyp status post removal Shortness of breath in the setting of volume overload and missed dialysis Bilateral pulmonary airspace opacities noted on chest x-ray, likely edema Hyperlipidemia GERD Obesity Anemia with dark stools concerning for GI bleed Status post EGD and colonoscopy on 10/13/2018 DISPOSITION: Home with home health. DISCHARGE MEDICATIONS: Refer to Discharge Medication List. DISCHARGE INSTRUCTIONS: Follow-up in a week. I have been assigned to complete a discharge summary on this account, I was not involved with the patient's management. Alissa Montez NP Oct 14, 2018 15:53
--- NOTE | 2018-10-14 20:55 | Cardiology Report ---
APPROVED REPORT EXAM: Two-dimensional and M-mode echocardiogram with Doppler and color Doppler. INDICATION CAD M-Mode DIMENSIONS IVSd1.4 (0.7-1.1cm)Left Atrium (MM)4.4 (1.6-4.0cm) LVDd5.8 (3.5-5.6cm)Aortic Root3.6 (2.0-3.7cm) PWd1.5 (0.7-1.1cm)Aortic Cusp Exc.1.4 (1.5-2.0cm) LVDs3.9 (2.5-4.0cm) PWs2.0 cm Normal left ventricular chamber size, mildly depressed systolic function and wall motion. Left ventricular ejection fraction estimated to be 50-55 %. Mild left ventricular hypertrophy. No evidence of pericardial effusion. Moderate bi-atrial enlargement. Right ventricular chamber size is within normal limits. Moderate aortic valve calcification with decreased cusp excursion c/w mild aortic stenosis. Thickened mitral valve leaflets with normal excursion. Mitral annulus and aortic root calcification. Normal pulmonic valve structure. Normal tricuspid valve structure. IVC dilated at 2.4 cm with slight physiological collapse, suggesitve of increased RA pressure. A color flow and spectral Doppler study was performed and revealed: Mild aortic insufficiency. Peak aortic valve gradient of 24 mm Hg and a mean of 15 mmHg. Aortic valve area 1.4 cm2 calculated by continuity equation c/w mild aortic stenosis. Mild mitral regurgitation. Mitral inflow velocities indicates possible pseudo normalization pattern implying significant left ventricular diastolic dysfunction (Grade II). Mild to moderate tricuspid regurgitation. Tricuspid systolic velocities suggests peak right ventricular systolic pressure of 55 mmHg, consistent with moderate pulmonary hypertension. Pulmonic regurgitation present.
--- NOTE | 2018-10-14 21:06 | Cardiology Report ---
APPROVED REPORT EKG Measurement Heart [id number] Normal sinus rhythm Prolonged QT Abnormal ECG
== END 2018-10-13 13:15 | disposition home health service (06) | DRG 291 ==
LOC: EMR 08:44 → 2E 09:05 → EDBEDREQ 10:32 → 4E 10-10 15:46
DX: I13.2 Hypertensive heart and chronic kidney disease with heart failure and with stage 5 chronic kidney disease, or end stage renal disease (principal); N18.6 End stage renal disease; I50.31 Acute diastolic (congestive) heart failure; E87.70 Fluid overload, unspecified; E11.22 Type 2 diabetes mellitus with diabetic chronic kidney disease; I25.10 Atherosclerotic heart disease of native coronary artery without angina pectoris; E11.65 Type 2 diabetes mellitus with hyperglycemia; D63.1 Anemia in chronic kidney disease; E87.5 Hyperkalemia; K21.9 Gastro-esophageal reflux disease without esophagitis; K63.5 Polyp of colon; E78.5 Hyperlipidemia, unspecified; K29.70 Gastritis, unspecified, without bleeding; E03.9 Hypothyroidism, unspecified; R26.81 Unsteadiness on feet; J45.909 Unspecified asthma, uncomplicated; E66.9 Obesity, unspecified; I35.0 Nonrheumatic aortic (valve) stenosis; K64.8 Other hemorrhoids; Z99.2 Dependence on renal dialysis; Z91.15 Patient's noncompliance with renal dialysis; Z68.28 Body mass index [BMI] 28.0-28.9, adult; Z86.73 Personal history of transient ischemic attack (TIA), and cerebral infarction without residual deficits
CPT/HCPCS: 36415; 36600; 71045; 71275; 80048; 80053; 80061; 81003; 82248; 82270; 82550; 82553; 82607; 82728; 82746; 82803; 82962; 82977; 83036; 83540; 83550; 83605; 83735; 83880; 84100; 84165; 84443; 84484; 84550; 85007; 85025; 85610; 85730; 86140; 86710; 86850; 86900; 86901; 86920; 87040; 87081; 93005; 93306; 93970; 94003; 94150; 94640; 94664; 94760; 96374; 96375; 99285; J1815; J2250; J7620; S5561

== ENCOUNTER 2019-04-18 12:47 | Inpatient (IN) | payer MEDICARE, MEDICAID ==
[~2019-04-18] VITALS: Ht 149.9 cm; Wt 72.6 kg
[~2019-04-18 12:47] MED LIST changes: +NORMODYNE100 MG ORAL
--- NOTE | 2019-04-18 13:14 | NUR ---
Note undone in EDM - 04/18/19 at 1318 by [facility] ED Nurse Note: PT WALKED IN TO ER TODAY FROM HOME. AOX4. PT C/O NONRADIATING STERNAL CHEST PAIN AND SOB X AROUND 0800 THIS MORNING AFTER DIALYSIS. PT STATES SHE GETS DIALYSIS MWF AND PRESENTS WITH FISTULA TO LEFT UPPER ARM. AT BEDSIDE, O2 SAT 84% ON RA. PT PLACED ON 3L O2 VIA NASAL CANNULA. RR17, O2 SAT 96% ON 3L O2 VIA NASAL CANNULA. NO SIGNS OF RESPIRATORY DISTRESS, RETRACTIONS OR ACCESSORY MUSCLE USE NOTED. BP ELEVATED AT BEDSIDE - 198/68, HR 95, NORMAL SINUS RHYTHM ON BUSINESS OPERATIONS COORDINATOR. DR EMMANUEL NOTIFIED.
--- NOTE | 2019-04-18 13:14 | NUR ---
ED Nurse Note: PT WALKED IN TO ER TODAY FROM HOME. AOX4. PT C/O NONRADIATING STERNAL CHEST PAIN AND SOB X AROUND 0800 THIS MORNING AFTER DIALYSIS. PT STATES SHE GETS DIALYSIS MWF AND PRESENTS WITH FISTULA TO LEFT UPPER ARM. AT BEDSIDE, O2 SAT 84% ON RA. PT PLACED ON 3L O2 VIA NASAL CANNULA. RR17, O2 SAT 96% ON 3L O2 VIA NASAL CANNULA. NO SIGNS OF RESPIRATORY DISTRESS, RETRACTIONS OR ACCESSORY MUSCLE USE NOTED. BP ELEVATED AT BEDSIDE - 198/68, HR 78, NORMAL SINUS RHYTHM ON SUPERVISOR INSECTICIDE. DR EMMANUEL NOTIFIED.
[2019-04-18 13:16] VITALS: BP 198/68
--- NOTE | 2019-04-18 13:32 | NUR ---
ED Nurse Note: XRAY AT BEDSIDE.
--- NOTE | 2019-04-18 13:50 | Emergency Room Report ---
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 tutor Otherwise he denies any vomiting or diarrhea She does feel generally fatigued and malaised Denies any recent travel denies any pleurisy Allergies: Coded Allergies: No Known Allergies (Unverified , 05/12/17) Patient History Past Medical History: see triage record Last Menstrual Period: na Reviewed Nursing Documentation: PMH: Agreed; PSxH: Agreed Nursing Documentation-PMH Past Medical History: No History, Except For Hx Cardiac Problems: Yes Hx Hypertension: Yes Hx Pacemaker: No Hx Asthma: Yes Hx COPD: No Hx Diabetes: Yes Hx Cancer: No Hx Gastrointestinal Problems: No Hx Dialysis: Yes Hx Neurological Problems: No Hx Transient Ischemic Attacks: Yes - ACUTE ISCHEMIC HEART DISEASE Hx Dementia: No Hx Alzheimer's Disease: No Hx Parkinson's Disease: No Hx Meningitis: No Hx Encephalitis: No Hx Seizures: No Hx Epilepsy: No Hx Multiple Sclerosis: No Hx Cerebral Palsy: No Hx Amyotrophic Lat Sclerosis: No Hx Guillian-[place] Syndrome: No Hx Paralysis: No Hx Peripheral Neuropathy: No Hx Spinal Cord Injury: No Hx Head Trauma: No Hx Traumatic Brain Injury: No Hx Memory Loss: No Hx Concentration Difficulty: No Hx Speech Problem: No Hx Tremors: No Hx Vertigo: No Hx Dizziness: No Hx Syncope: No Hx Headaches: No Hx Aphasia: No Hx Dysphasia: No Hx Numbness: No Hx Weakness: Yes - MUSCLE WEAKNESS Hx Fatigue: No Hx Neurologic Surgery: No Hx Brain Shunt: No Review of Systems All Other Systems: negative except mentioned in HPI Physical Exam Vital Signs Date Time Temp Pulse Resp B/P (MAP) Pulse Ox O2 Delivery O2 Flow Rate FiO2 04/18/19 12:55 98.4 75 28 188/68 (108) 86 Room Air 04/18/19 13:16 3.0 Sp02 EP Interpretation: reviewed, abnormal - Low percentage on repeat evaluation on 3 L patient saturating at 99% which is normal General Appearance: mild distress - tachypnic And short of breath Head: normocephalic, atraumatic Eyes: bilateral eye PERRL, bilateral eye EOMI ENT: hearing grossly normal, normal pharynx, TMs + canals normal, uvula midline Neck: full range of motion, supple, no meningismus, no bony tend Respiratory: no retraction, no accessory muscle use, crackles, other - Tachypneic Cardiovascular #1: normal peripheral pulses, regular rate, rhythm, no JVD, no murmur Gastrointestinal: normal bowel sounds, non tender, soft, no mass, no organomegaly, non-distended, no guarding, no hernia, no pulsatile mass, no rebound Genitourinary: no CVA tenderness Musculoskeletal: normal inspection - AV left arm Neurologic: oriented x3, responsive, pattern stamper III-XII nml as tested, motor strength/ tone normal, sensory intact Psychiatric: mood/affect normal Skin: no rash Lymphatic: normal inspection, no adenopathy Procedures Critical Care Time Critical Care Time 40 minutes for initial critical presentation concern for respiratory failure not including any procedural time Medical Decision Making Diagnostic Impression: Primary Impression: Dyspnea Additional Impressions: Respiratory distress ESRD (end stage renal disease) Pulmonary congestion ER Course Patient is a fairly complex patient with multiple differential to consideration including but not limited to cardiac cardiopulmonary and vascular emergencies Patient presents short of breath and tachypneic She was placed on BiPAP Labs Test 04/18/19 13:37 White Blood Count 3.7 K/UL (4.8-10.8) Red Blood Count 3.46 M/UL (4.20-5.40) Hemoglobin 10.4 G/DL (12.0-16.0) Hematocrit 32.4 % (37.0-47.0) Mean Corpuscular Volume 94 FL (80-99) Mean Corpuscular Hemoglobin 30.1 PG (27.0-31.0) Mean Corpuscular Hemoglobin Concent 32.1 G/DL (32.0-36.0) Red Cell Distribution Width 14.7 % (11.6-14.8) Platelet Count 199 K/UL (150-450) Mean Platelet Volume 5.6 FL (6.5-10.1) Neutrophils (%) (Auto) 69.8 % (45.0-75.0) Lymphocytes (%) (Auto) 16.7 % (20.0-45.0) Monocytes (%) (Auto) 7.7 % (1.0-10.0) Eosinophils (%) (Auto) 4.7 % (0.0-3.0) Basophils (%) (Auto) 1.1 % (0.0-2.0) Sodium Level 144 MMOL/L (136-145) Potassium Level 3.0 MMOL/L (3.5-5.1) Chloride Level 99 MMOL/L (98-107) Carbon Dioxide Level 39 MMOL/L (21-32) Anion Gap 6 mmol/L (5-15) Blood Urea Nitrogen 11 mg/dL (7-18) Creatinine 2.6 MG/DL (0.55-1.30) Estimat Glomerular Filtration Rate 18.2 mL/min (>60) Glucose Level 126 MG/DL (74-106) Calcium Level 8.4 MG/DL (8.5-10.1) Troponin I 0.030 ng/mL (0.000-0.056) Chest X-Ray Diagnostic Results Chest X-Ray Diagnostic Results : Chest X-Ray Ordered: Yes # of Views/Limited/Complete: 1 View Indication: Shortness of Breath EP Interpretation: Yes Interpretation: no consolidation, no pneumothorax, other - pulmonary congestion Impression: Other - Pulmonary congestion Electronically Signed by: Makenna Patel DO Last Vital Signs Date Time Temp Pulse Resp B/P (MAP) Pulse Ox O2 Delivery O2 Flow Rate FiO2 04/18/19 13:16 98.2 78 17 198/68 96 Nasal Cannula 3.0 Status: improved Referrals: NON PHYSICIAN (PCP) Makenna Patel DO Apr 18, 2019 13:50
[2019-04-18 13:51] LABS: BASOPHILS % (AUTO) 1.1 % (0.0-2.0); EOSINOPHILS % (AUTO) 4.7 % (0.0-3.0); HEMATOCRIT 32.4 % (37.0-47.0); HEMOGLOBIN 10.4 G/DL (12.0-16.0); LYMPHOCYTES % (AUTO) 16.7 % (20.0-45.0); MEAN CORPUSCULAR VOLUME 94 FL (80-99); MONOCYTES % (AUTO) 7.7 % (1.0-10.0); NEUTROPHILS % (AUTO) 69.8 % (45.0-75.0); PLATELET COUNT 199 K/UL (150-450); RED BLOOD COUNT 3.46 M/UL (4.20-5.40); RED CELL DISTRIBUTION WIDTH 14.7 % (11.6-14.8); WHITE BLOOD COUNT 3.7 K/UL (4.8-10.8)
[2019-04-18 14:10] LABS: ANION GAP 6 mmol/L (5-15); BLOOD UREA NITROGEN 11 mg/dL (7-18); CALCIUM 8.4 MG/DL (8.5-10.1); CARBON DIOXIDE 39 MMOL/L (21-32); CHLORIDE 99 MMOL/L (98-107); CREATININE 2.6 MG/DL (0.55-1.30); SODIUM 144 MMOL/L (136-145)
[2019-04-18 14:12] VITALS: BP 170/142
--- NOTE | 2019-04-18 14:13 | NUR ---
ED Nurse Note: PT TAKEN OFF OF O2. RR15, O2 SAT 97% ON RA.
--- NOTE | 2019-04-18 14:31 | NUR ---
ED Nurse Note: BIPAP ORDER PLACED BY DR EMMANUEL. RT AT BEDSIDE FOR BIPAP AND ABG.
--- NOTE | 2019-04-18 14:40 | NUR ---
ED Nurse Note: BIPAP SETTINGS: IPAP: 15 EPAP: 5 RATE: 14 FiO2: 21%
[2019-04-18 14:41] LABS: ALANINE AMINOTRANSFERASE 6 U/L (12-78); ALBUMIN 3.8 G/DL (3.4-5.0); ALKALINE PHOSPHATASE 105 U/L (46-116); ASPARTATE AMINO TRANSFERASE 16 U/L (15-37); BILIRUBIN,TOTAL 0.8 MG/DL (0.2-1.0); CREATINE KINASE 154 U/L (26-308)
--- NOTE | 2019-04-18 15:04 | Diagnostic Imaging Report ---
Indication: Dyspnea Comparison: 10/10/2018 A single view chest radiograph was obtained. Findings: Evidence of pulmonary edema, currently moderate degree, characterized by a cephalized pulmonary vessels, interstitial densities and cardiomegaly. IMPRESSION: Moderate congestive heart failure
--- NOTE | 2019-04-18 15:21 | NUR ---
ED Nurse Note: SDU CALLED FOR PT REPORT. REPORT GIVEN TO SIDNEY CRUZ. RN READY TO ACCEPT PT. PT TAKEN UP TO SDU ON VETERINARY X RAY OPERATOR WITH ALL BELONGINGS ACCOMPANIED BY PRIMARY RN, EMT, AND RT.
--- NOTE | 2019-04-18 16:04 | Pulmonology Progress Note ---
Assessment/Plan Assessment/Plan Pulmonary Consultation HPI Patient is a 69 year old woman presenting with shortness of breath/cough ongoing for several days, patient has CKD, HTN, DM, CAD, Asthma, receives dialysis on Thursday and Fridays, had her dialysis this morning Otherwise he denies any fever, no nausea, vomiting or diarrhea, has fatigue and malaise, no chest pain. Allergies: No Known Allergies Past Medical History: CKD on HD, HTN, DM, Asthma, previous CAD All Other Systems: negative except mentioned in HPI Physical Exam Vital Signs Noted Date Time Temp Pulse Resp B/P (MAP) Pulse Ox O2 Delivery O2 Flow Rate FiO2 04/18/19 12:55 98.4 75 28 188/68 (108) 86 Room Air 04/18/19 13:16 3.0 General Appearance: no distress on BiPAP Head: normocephalic, atraumatic Eyes: bilateral eye PERRL, bilateral eye EOMI ENT: moist mm Neck: no LN Respiratory: no retraction, no accessory muscle use, basal crackles Cardiovascular: normal peripheral pulses, regular rate, rhythm, no JVD, no murmur, normal hS1/HS2 Gastrointestinal: normal bowel sounds, non tender, soft, no mass, no organomegaly, non-distended, no guarding, no hernia, no pulsatile mass, no rebound Genitourinary: no CVA tenderness Musculoskeletal: normal inspection - AV left arm Neurologic: oriented x3, responsive, electrician journeyman wireman III-XII nml as tested, motor strength/ tone normal, sensory intact Skin: no rash, no edema Impression: Respiratory distress Pulmonary congestion on CXR ESRD (end stage renal disease) on HD Hypertension Diabetes CAD Plan: BiPAP 15/5 HD per Renal O2 PRN HHN PRN Monitor labs PPX ISS Labs Test 04/18/19 13:37 White Blood Count 3.7 K/UL (4.8-10.8) Red Blood Count 3.46 M/UL (4.20-5.40) Hemoglobin 10.4 G/DL (12.0-16.0) Hematocrit 32.4 % (37.0-47.0) Mean Corpuscular Volume 94 FL (80-99) Mean Corpuscular Hemoglobin 30.1 PG (27.0-31.0) Mean Corpuscular Hemoglobin Concent 32.1 G/DL (32.0-36.0) Red Cell Distribution Width 14.7 % (11.6-14.8) Platelet Count 199 K/UL (150-450) Mean Platelet Volume 5.6 FL (6.5-10.1) Neutrophils (%) (Auto) 69.8 % (45.0-75.0) Lymphocytes (%) (Auto) 16.7 % (20.0-45.0) Monocytes (%) (Auto) 7.7 % (1.0-10.0) Eosinophils (%) (Auto) 4.7 % (0.0-3.0) Basophils (%) (Auto) 1.1 % (0.0-2.0) Sodium Level 144 MMOL/L (136-145) Potassium Level 3.0 MMOL/L (3.5-5.1) Chloride Level 99 MMOL/L (98-107) Carbon Dioxide Level 39 MMOL/L (21-32) Anion Gap 6 mmol/L (5-15) Blood Urea Nitrogen 11 mg/dL (7-18) Creatinine 2.6 MG/DL (0.55-1.30) Estimat Glomerular Filtration Rate 18.2 mL/min (>60) Glucose Level 126 MG/DL (74-106) Calcium Level 8.4 MG/DL (8.5-10.1) Troponin I 0.030 ng/mL (0.000-0.056) Chest X-Ray: no consolidation, no pneumothorax, other - pulmonary congestion Subjective ROS Limited/Unobtainable: No Allergies: Coded Allergies: No Known Allergies (Unverified , 05/12/17) Objective Last 24 Hour Vital Signs Date Time Temp Pulse Resp B/P (MAP) Pulse Ox O2 Delivery O2 Flow Rate FiO2 04/18/19 15:23 98.3 74 18 172/136 94 Bi-pap 21 04/18/19 14:38 21 04/18/19 14:12 98.4 76 15 170/142 97 Room Air 04/18/19 13:16 98.2 78 17 198/68 96 Nasal Cannula 3.0 04/18/19 13:16 78 17 Room Air 04/18/19 12:55 98.4 75 28 188/68 (108) 86 Room Air Laboratory Tests 04/18/19 13:37: White Blood Count 3.7L, Red Blood Count 3.46L, Hemoglobin 10.4L, Hematocrit 32.4L, Mean Corpuscular Volume 94, Mean Corpuscular Hemoglobin 30.1, Mean Corpuscular Hemoglobin Concent 32.1, Red Cell Distribution Width 14.7, Platelet Count 199, Mean Platelet Volume 5.6L, Neutrophils (%) (Auto) 69.8, Lymphocytes ( %) (Auto) 16.7L, Monocytes (%) (Auto) 7.7, Eosinophils (%) (Auto) 4.7H, Basophils (%) (Auto) 1.1, Sodium Level 144, Potassium Level 3.0L, Chloride Level 99, Carbon Dioxide Level 39H, Anion Gap 6, Blood Urea Nitrogen 11, Creatinine 2.6H, Estimat Glomerular Filtration Rate 18.2, Glucose Level 126H, Calcium Level 8.4L, Total Bilirubin 0.8, Aspartate Amino Transf (AST/SGOT) 16, Alanine Aminotransferase (ALT/SGPT) 6L, Alkaline Phosphatase 105, Total Creatine Kinase 154, Creatine Kinase MB 1.0, Creatine Kinase MB Relative Index 0.6, Troponin I 0.030, Total Protein 7.6, Albumin 3.8, Globulin 3.8, Albumin/ Globulin Ratio 1.0 04/18/19 14:45: Arterial Blood pH 7.475H, Arterial Blood Partial Pressure CO2 53.0H, Arterial Blood Partial Pressure O2 54.3L, Arterial Blood HCO3 38.1H, Arterial Blood Oxygen Saturation 87.9*L, Arterial Blood Base Excess 12.8*H, Faheem Test Positive Brandon Herbert MD Apr 18, 2019 16:04
[2019-04-18] MEDS: NovoLOG Insulin Flexpen SUBQ SCH ×2 (16:30→20:22)
--- NOTE | 2019-04-18 16:30 | NUR ---
NURSE NOTES: Report received from Michi Kemp. Pt awake, alert and oriented x 4, able to make needs known. Pt denies pain and discomfort at this time. Pt on 2 L, denies SOB. SHAMEKA HD fistula noted and intact with bruit and thrill present. RAC 20 G heplock noted and intact. Safety measures in place with bed locked and in lowest position, side rails x3 up and bed alarm on. Will continue to monitor and continue plan of care.
[2019-04-18 16:40] VITALS: BP 160/76
[2019-04-18] MEDS ORDERED: HydrALAZINE 25mg tab ORAL PRN (16:45)
[2019-04-18] MEDS ORDERED: NovoLOG Insulin Flexpen SUBQ SCH (16:50)
--- NOTE | 2019-04-18 16:54 | Consultation ---
Consult Note Consult Note I saw the patient in dialysis unit- she had accelerated HTN and SOB and complainig of chest discomfort Summoned to the ER beig admitted in step down unit on BIPAP BP remauns OOC Assessment/Plan ESRD Pulm EDema DM HTN Anemia Low B12 and Iron by history CAD BP meds 2D Echo Pulm support per orders Francis Falk MD Apr 18, 2019 16:54
[2019-04-18] MEDS ORDERED: traMADol 50mg tab ORAL PRN (17:00)
[2019-04-18] MEDS ORDERED: Metoclopramide 10mg/2ml Inj IVP PRN (17:00)
[2019-04-18] MEDS: Docusate 100mg cap ORAL SCH (17:42)
[2019-04-18] MEDS: Lisinopril 20mg tab ORAL SCH (17:42)
--- NOTE | 2019-04-18 19:10 | NUR ---
HAND-OFF: Report given to Aleksandr Kemp.
--- NOTE | 2019-04-18 19:20 | NUR ---
NURSE NOTES: Report received from SIDNEY Pham. Observed pt lying in the bed, watching television. No acute distress noted at this time. SR on monitor car operator. On 2L with no sob. AV shunt on L UA noted. IV on R AC 20G, HL, asymptomatic. Bed int he lowest position. Side rails up x3. Call light within reach. Will continue to monitor.
[2019-04-18] MEDS: Albuterol/Ipratropium 3ml neb HHN SCH ×2 (19:54→23:57)
[2019-04-18 20:00] VITALS: BP 175/76
[2019-04-18] MEDS: Metoprolol Tartrate 50mg tab ORAL SCH (20:19)
[2019-04-18] MEDS: Heparin 5000 units/ml inj SUBQ SCH (20:21)
[2019-04-18] MEDS ORDERED: Atorvastatin 20mg tab ORAL SCH (21:00)
[2019-04-18] MEDS ORDERED: Metoprolol Tartrate 50mg tab ORAL SCH (21:00)
--- NOTE | 2019-04-18 23:00 | NUR ---
NURSE NOTES: Brought pt downstairs on 2209 via wheelchair to do VQ scan and came back to the unit at this time. pt was on monitor and O2 2L, and well tolerated the procedure. Will continue to monitor.
--- NOTE | 2019-04-18 23:31 | Diagnostic Imaging Report ---
Indication: Chest pain Technique: A ventilation/perfusion scan was performed. Ventilation was performed utilizing 40 mCi of Technetium 99m-DTPA. Perfusion was performed with 4.8 mCi of technetium 99m-MAA injected intravenously. Multiple side by side projections obtained. Findings: Ventilation is mildly heterogeneous. No significant defects are identified. Perfusion is mildly heterogeneous. No significant defects are identified. No mismatched defects seen. Impression: Low probability for pulmonary embolus Interpretation of findings are based on PIIVYD II harmony (2006).
[2019-04-18] MEDS: HydrALAZINE 25mg tab ORAL PRN (23:32)
--- NOTE | 2019-04-18 23:57 | NUR ---
RESPIRATORY NOTE: Pt placed on BiPAP for nightly use. Pt on BiPAP 15/5, backup rate 14, 30%. Pt placed on Facial mask, skin intact, no redness/breakdowns noted. Pt is alert/awake, follows commands. B/S elver.diminished, nonproductive cough. BiPAP plugged into red outlet, alarms on & audible. Pt comfortable, in no apparent distress at this time. Will continue plan of care.
[2019-04-19] VITALS: BP 170/83
--- NOTE | 2019-04-19 02:00 | NUR ---
NURSE NOTES: Pt on Bipap 15/5 30% noted. Pt appears calm and sleeping in the bed.
[2019-04-19] MEDS: Albuterol/Ipratropium 3ml neb HHN SCH ×6 (03:24→23:15)
[2019-04-19 04:00] VITALS: BP 155/72
[2019-04-19 04:48] LABS: BASOPHILS % (AUTO) 1.3 % (0.0-2.0); EOSINOPHILS % (AUTO) 4.5 % (0.0-3.0); HEMATOCRIT 30.3 % (37.0-47.0); HEMOGLOBIN 9.9 G/DL (12.0-16.0); LYMPHOCYTES % (AUTO) 13.9 % (20.0-45.0); MEAN CORPUSCULAR VOLUME 94 FL (80-99); MONOCYTES % (AUTO) 8.5 % (1.0-10.0); NEUTROPHILS % (AUTO) 71.8 % (45.0-75.0); PLATELET COUNT 188 K/UL (150-450); RED BLOOD COUNT 3.21 M/UL (4.20-5.40); RED CELL DISTRIBUTION WIDTH 13.5 % (11.6-14.8); WHITE BLOOD COUNT 3.5 K/UL (4.8-10.8)
[2019-04-19 05:31] LABS: ALANINE AMINOTRANSFERASE 7 U/L (12-78); ALBUMIN 3.5 G/DL (3.4-5.0); ALBUMIN/GLOBULIN RATIO 0.9 (1.0-2.7); ALKALINE PHOSPHATASE 104 U/L (46-116); ANION GAP 6 mmol/L (5-15); ASPARTATE AMINO TRANSFERASE 16 U/L (15-37); BLOOD UREA NITROGEN 20 mg/dL (7-18); CALCIUM 7.8 MG/DL (8.5-10.1); CARBON DIOXIDE 36 MMOL/L (21-32); CHLORIDE 99 MMOL/L (98-107); CHOLESTEROL 79 MG/DL (< 200); CREATININE 3.8 MG/DL (0.55-1.30); FERRITIN 638 NG/ML (8-388); HDL CHOLESTEROL 35 MG/DL (40-60); POTASSIUM 3.7 MMOL/L (3.5-5.1); SODIUM 141 MMOL/L (136-145); TRIGLYCERIDES 124 MG/DL (30-150)
[2019-04-19 05:37] LABS: CREATINE KINASE 143 U/L (26-308); GAMMA GLUTAMYL TRANSPEPTIDASE 56 U/L (5-85); PHOSPHORUS 2.9 MG/DL (2.5-4.9)
[2019-04-19] MEDS: NovoLOG Insulin Flexpen SUBQ SCH ×4 (06:40→20:58)
[2019-04-19] MEDS ORDERED: Guaifenesin/DM 10ml syrup ORAL PRN (06:45)
--- NOTE | 2019-04-19 07:15 | NUR ---
HAND-OFF: Report given to SIDNEY Brice. No distress noted at this time
--- NOTE | 2019-04-19 07:20 | NUR ---
NURSE NOTES: Received bedside report from Aleksandr RN. Pt. in bed, awake, a/o x 4. No sign of distress. No c/o pain at present. IV at right AC #20g. in placed patent/intact SL. AV shunt at left upper arm (+) for bruit/thrill. No s/sx of bleeding at the site. Bed in low position, locked. Call light within reach. Will cont. to monitor.
[2019-04-19 08:00] VITALS: BP 158/76
--- NOTE | 2019-04-19 08:52 | Consultation ---
History of Present Illness General Chief Complaint: Dyspnea/Respdistress Present Illness Allergies: Coded Allergies: No Known Allergies (Unverified , 05/12/17) Medication History Scheduled Atorvastatin Calcium* (Atorvastatin Calcium*), 40 MG ORAL BEDTIME, (Reported) Atorvastatin Calcium* (Atorvastatin Calcium*), 80 MG ORAL BEDTIME, (Reported) Calcium Carbonate/Vitamin D3 (Oyster Shell 500 Mg + Vit D Tb), 1 EACH PO DAILY, (Reported) Docusate Sodium* (Docusate Sodium*), 100 MG ORAL DAILY, (Reported) Epoetin Panchito (Epogen), 10,000 UNIT SUBQ 3XW, (Reported) Ferrous Sulfate (Ferrous Sulfate), 325 MG ORAL DAILY, (Reported) Folic Acid* (Folic Acid*), 1 MG ORAL DAILY, (Reported) Furosemide* (Lasix*), 20 MG ORAL BID, (Reported) Gabapentin (Neurontin), 300 MG ORAL THREE TIMES A DAY, (Reported) Gabapentin* (Gabapentin*), 300 MG ORAL BEDTIME, (Reported) Insulin Detemir (Levemir), 15 SUBQ Q12HR, (Reported) Isosorbide Mononitrate (Isosorbide Mononitrate Er), 180 MG PO DAILY, (Reported) Isosorbide Mononitrate (Isosorbide Mononitrate Er), 60 MG PO DAILY, (Reported) Labetalol HCl (Labetalol HCl), 100 MG ORAL BID, (Reported) Lansoprazole* (Lansoprazole*), 30 MG ORAL DAILY, (Reported) Levothyroxine Sodium (Levothyroxine Sodium), 137 MCG ORAL DAILY, (Reported) Levothyroxine Sodium* (Levothyroxine Sodium*), 50 MCG ORAL DAILY, (Reported) Lisinopril (Lisinopril*), 20 MG ORAL DAILY, (Reported) Metoprolol Tartrate* (Metoprolol Tartrate*), 50 MG ORAL EVERY 12 HOURS, ( Reported) Nifedipine (Nifedipine*), 90 MG ORAL DAILY, (Reported) Nifedipine Er* (Adalat Cc*), 90 MG ORAL DAILY, (Reported) Sennosides (Senna), 8.6 MG PO DAILY, (Reported) Vit B Cmplx 3/Fa/Vit C/Biotin (Nephro-Blaze Rx Tablet), 1 EACH PO DAILY, ( Reported) Scheduled PRN Acetaminophen* (Acetaminophen 325MG Tablet*), 325 MG ORAL Q4H PRN for MILD PAIN, (Reported) Acetaminophen* (Tylenol Extra Strength*), 500 MG ORAL Q8H PRN for Prn Headache/ Temp > 101 Hydralazine HCl (Hydralazine HCl), 25 MG PO Q6HR PRN for prn, (Reported) Hydrocodone Bit/Acetaminophen 5-325* ([place] 5-325 Tablet*), 1 TAB ORAL Q4H PRN for MODERATE TO SEVERE PAIN, (Reported) Ondansetron* (Zofran*), 4 MG ORAL Q6H PRN for Nausea & Vomiting, (Reported) Tramadol Hcl* (Ultram*), 50 MG ORAL Q6H PRN for For Pain Miscellaneous Medications Insulin Regular, Human (Humulin R), 0 SUBQ, (Reported) Unable to Obtain Medications (Unable To Obtain Meds), (Reported) Patient History Healthcare decision maker Resuscitation status Full Code Advanced Directive on File No Physical Exam Last 24 Hour Vital Signs Date Time Temp Pulse Resp B/P (MAP) Pulse Ox O2 Delivery O2 Flow Rate FiO2 04/19/19 08:00 98.8 80 18 158/76 (103) 100 04/19/19 07:08 78 20 100 Nasal Cannula 2.0 28 75 21 99 04/19/19 07:00 99 Nasal Cannula 2.0 28 04/19/19 04:00 2.0 04/19/19 04:00 Nasal Cannula 2.0 04/19/19 04:00 91 04/19/19 04:00 99.0 93 18 155/72 (99) 97 04/19/19 03:34 91 20 100 Nasal Cannula 2.0 28 04/19/19 03:24 90 20 100 04/19/19 00:59 90 15 98 Facial 30 04/19/19 00:07 89 19 100 Bi-Pap 30 04/19/19 00:00 30 04/19/19 00:00 90 04/19/19 00:00 98.1 92 20 170/83 (112) 98 04/19/19 00:00 Nasal Cannula 2.0 04/18/19 23:57 89 20 96 04/18/19 23:55 89 20 96 Facial 30 04/18/19 23:32 170/83 04/18/19 20:19 78 170/76 04/18/19 20:04 75 20 99 Nasal Cannula 2.0 28 04/18/19 20:00 Nasal Cannula 2.0 04/18/19 20:00 2.0 04/18/19 20:00 98.2 83 18 175/76 (109) 96 04/18/19 20:00 84 04/18/19 19:54 79 20 99 Nasal Cannula 2.0 28 04/18/19 19:54 78 20 99 04/18/19 19:54 99 Nasal Cannula 2.0 28 04/18/19 17:42 73 160/76 04/18/19 17:42 160/76 04/18/19 16:53 73 04/18/19 16:40 97.7 97 18 160/76 (104) 97 04/18/19 16:01 Nasal Cannula 2.0 04/18/19 15:23 98.3 74 18 172/136 94 Bi-pap 21 04/18/19 14:38 21 04/18/19 14:12 98.4 76 15 170/142 97 Room Air 04/18/19 13:16 98.2 78 17 198/68 96 Nasal Cannula 3.0 04/18/19 13:16 78 17 Room Air 04/18/19 12:55 98.4 75 28 188/68 (108) 86 Room Air Intake and Output 04/18/19 04/19/19 19:00 07:00 Intake Total 200 ml Balance 200 ml Intake Oral 200 ml # Voids 1 Laboratory Tests Test 04/18/19 13:37 04/18/19 14:45 04/19/19 03:35 White Blood Count 3.7 K/UL (4.8-10.8) L 3.5 K/UL (4.8-10.8) L Red Blood Count 3.46 M/UL (4.20-5.40) L 3.21 M/UL (4.20-5.40) L Hemoglobin 10.4 G/DL (12.0-16.0) L 9.9 G/DL (12.0-16.0) L Hematocrit 32.4 % (37.0-47.0) L 30.3 % (37.0-47.0) L Mean Corpuscular Volume 94 FL (80-99) 94 FL (80-99) Mean Corpuscular Hemoglobin 30.1 PG (27.0-31.0) 30.9 PG (27.0-31.0) Mean Corpuscular Hemoglobin Concent 32.1 G/DL (32.0-36.0) 32.8 G/DL (32.0-36.0) Red Cell Distribution Width 14.7 % (11.6-14.8) 13.5 % (11.6-14.8) Platelet Count 199 K/UL (150-450) 188 K/UL (150-450) Mean Platelet Volume 5.6 FL (6.5-10.1) L 6.6 FL (6.5-10.1) Neutrophils (%) (Auto) 69.8 % (45.0-75.0) 71.8 % (45.0-75.0) Lymphocytes (%) (Auto) 16.7 % (20.0-45.0) L 13.9 % (20.0-45.0) L Monocytes (%) (Auto) 7.7 % (1.0-10.0) 8.5 % (1.0-10.0) Eosinophils (%) (Auto) 4.7 % (0.0-3.0) H 4.5 % (0.0-3.0) H Basophils (%) (Auto) 1.1 % (0.0-2.0) 1.3 % (0.0-2.0) Sodium Level 144 MMOL/L (136-145) 141 MMOL/L (136-145) Potassium Level 3.0 MMOL/L (3.5-5.1) L 3.7 MMOL/L (3.5-5.1) Chloride Level 99 MMOL/L (98-107) 99 MMOL/L (98-107) Carbon Dioxide Level 39 MMOL/L (21-32) H 36 MMOL/L (21-32) H Anion Gap 6 mmol/L (5-15) 6 mmol/L (5-15) Blood Urea Nitrogen 11 mg/dL (7-18) 20 mg/dL (7-18) H Creatinine 2.6 MG/DL (0.55-1.30) H 3.8 MG/DL (0.55-1.30) H Estimat Glomerular Filtration Rate 18.2 mL/min (>60) 11.7 mL/min (>60) Glucose Level 126 MG/DL (74-106) H 216 MG/DL (74-106) H Calcium Level 8.4 MG/DL (8.5-10.1) L 7.8 MG/DL (8.5-10.1) L Total Bilirubin 0.8 MG/DL (0.2-1.0) 1.0 MG/DL (0.2-1.0) Aspartate Amino Transf (AST/SGOT) 16 U/L (15-37) 16 U/L (15-37) Alanine Aminotransferase (ALT/SGPT) 6 U/L (12-78) L 7 U/L (12-78) L Alkaline Phosphatase 105 U/L (46-116) 104 U/L (46-116) Total Creatine Kinase 154 U/L (26-308) 143 U/L (26-308) Creatine Kinase MB 1.0 NG/ML (0.0-3.6) Creatine Kinase MB Relative Index 0.6 Troponin I 0.030 ng/mL (0.000-0.056) 0.025 ng/mL (0.000-0.056) Total Protein 7.6 G/DL (6.4-8.2) 7.2 G/DL (6.4-8.2) Albumin 3.8 G/DL (3.4-5.0) 3.5 G/DL (3.4-5.0) Globulin 3.8 g/dL 3.7 g/dL Albumin/Globulin Ratio 1.0 (1.0-2.7) 0.9 (1.0-2.7) L Arterial Blood pH 7.475 (7.350-7.450) Arterial Blood Partial Pressure CO2 53.0 mmHg (35.0-45.0) H Arterial Blood Partial Pressure O2 54.3 mmHg (75.0-100.0) L Arterial Blood HCO3 38.1 mmol/L (22.0-26.0) H Arterial Blood Oxygen Saturation 87.9 % (95-100) *L Arterial Blood Base Excess 12.8 (-2-2) *H Faheem Test Positive Hemoglobin A1c 7.1 % (4.3-6.0) H Uric Acid 4.1 MG/DL (2.6-7.2) Phosphorus Level 2.9 MG/DL (2.5-4.9) Magnesium Level 1.9 MG/DL (1.8-2.4) Ferritin 638 NG/ML (8-388) H Gamma Glutamyl Transpeptidase 56 U/L (5-85) C-Reactive Protein, Quantitative 1.4 mg/dL (0.00-0.90) H Pro-B-Type Natriuretic Peptide > 99867 pg/mL (0-125) H Triglycerides Level 124 MG/DL (30-150) Cholesterol Level 79 MG/DL (< 200) LDL Cholesterol 31 mg/dL (<100) HDL Cholesterol 35 MG/DL (40-60) L Cholesterol/HDL Ratio 2.3 (3.3-4.4) L Vitamin B12 Level 464 PG/ML (193-986) Folate 9.6 NG/ML (8.6-58.9) Thyroid Stimulating Hormone (TSH) 3.424 uiU/mL (0.358-3.740) Free Thyroxine 1.14 NG/DL (0.76-1.46) Free Triiodothyronine 2.0 pg/mL (2.3-4.2) L Height (Feet): 4 Height (Inches): 11.00 Weight (Pounds): 165 Medications Current Medications Medications (Trade) Dose Ordered Sig/Toya Route PRN Reason Start Time Stop Time Status Last Admin Dose Admin Acetaminophen (Tylenol) 500 mg Q4H PRN ORAL Mild Pain/Temp > 100.5 04/18/19 15:45 05/18/19 15:44 Albuterol/ Ipratropium (Albuterol/ Ipratropium) 3 ml Q4HRT HHN 04/18/19 19:00 04/23/19 18:59 04/19/19 07:00 Amlodipine Besylate (Norvasc) 10 mg DAILY ORAL 04/19/19 09:00 05/19/19 08:59 Atorvastatin Calcium (Lipitor) 40 mg BEDTIME ORAL 04/18/19 21:00 05/18/19 20:59 04/18/19 20:20 Dextrose (Dextrose 50%) 25 ml Q30M PRN IV Hypoglycemia 04/18/19 15:45 05/18/19 15:44 Dextrose (Dextrose 50%) 50 ml Q30M PRN IV Hypoglycemia 04/18/19 15:45 05/18/19 15:44 Docusate Sodium (Colace) 100 mg TID ORAL 04/18/19 18:00 05/18/19 17:59 Folic Acid (Folate) 3 mg DAILY ORAL 04/19/19 09:00 05/19/19 08:59 Gabapentin (Neurontin) 300 mg Q8HR ORAL 04/18/19 17:00 05/18/19 16:59 04/19/19 06:38 Guaifenesin/ Dextromethorphan (Robitussin DM Syrup) 5 ml Q6H PRN ORAL For Cough 04/19/19 06:45 05/19/19 06:44 Heparin Sodium (Porcine) (Heparin 5000 units/ml) 5,000 units EVERY 12 HOURS SUBQ 04/18/19 21:00 05/18/19 20:59 04/18/19 20:21 Hydralazine HCl (Apresoline) 25 mg Q4H PRN ORAL prn bp over 160 syst 04/18/19 16:45 05/18/19 16:44 04/18/19 23:32 Insulin Aspart (NovoLOG) BEFORE MEALS AND HS SUBQ 04/18/19 16:30 05/18/19 16:29 04/19/19 06:40 Levothyroxine Sodium (Synthroid) 100 mcg DAILY@0630 ORAL 04/19/19 06:30 05/19/19 06:29 04/19/19 06:38 Lisinopril (Prinivil) 20 mg BID ORAL 04/18/19 18:00 05/18/19 17:59 04/18/19 17:42 Metoclopramide HCl (Reglan) 10 mg Q6H PRN IVP Nausea & Vomiting 04/18/19 17:00 05/18/19 16:59 Metoprolol Tartrate (Lopressor) 50 mg EVERY 12 HOURS ORAL 04/18/19 21:00 05/18/19 20:59 04/18/19 20:19 Pantoprazole (Protonix) 40 mg EVERY 12 HOURS ORAL 04/18/19 21:00 05/18/19 20:59 04/18/19 20:18 Sennosides (Senokot) 8.6 mg DAILY ORAL 04/19/19 09:00 05/19/19 08:59 Tramadol HCl (Ultram) 50 mg Q6H PRN ORAL pain 6 - 10 04/18/19 17:00 04/25/19 16:59 Assessment/Plan Assessment/Plan: HEMATOLOGY/ONCOLOGY CONSULTATION CONSULTING PHYSICIAN: Carl Daniels M.D. REQUESTING PHYSICIAN: Makenna Daniel M.D. DOS: 04/19/19 REASON FOR CONSULTATION: Evaluation of anemia. Leukopenia, low b12 level IDENTIFYING DATA: Dear Dr. Faustin, 69 -year-old female with past medical history significant for end-stage renal disease, on hemodialysis three times a week, completed dialysis, but had ongoing fatigue and shortness of breath, has been seen by Nephrology Service, and represented back to the hospital. She reported no current loss of consciousness. No pulmonary embolism. No fever, no chills, no night sweats reported. The patient also noted to have a contusion in the shoulder, no acute fracture, and recommended weaning herself from the sling, this was on prior admission. Heme now consulted. PAST MEDICAL HISTORY: As noted above. MEDICATIONS: Reviewed. ALLERGIES: No known drug allergies. REVIEW OF SYSTEMS: CONSTITUTIONAL: No fever, chills, or night sweats. SKIN: No rashes, bumps, or itching. HEENT: No headache, hearing or vision changes. BREASTS: No lumps, pain, or discharge. PULMONARY: No cough, sputum, or shortness of breath. GASTROINTESTINAL: No nausea, vomiting, or diarrhea. GENITOURINARY: No dysuria, frequency, or urgency. MUSCULOSKELETAL: No joint swelling, muscle pain, or trauma. PHYSICAL EXAMINATION: VITAL SIGNS: Reviewed. GENERAL: No distress. PULMONARY: Decreased breath sounds. ++ BIPAP CARDIOVASCULAR: Regular rate. No S3 or S4. ABDOMEN: Soft, nontender, and nondistended. EXTREMITIES: No cyanosis, swelling, or edema. ++ Left AVS Labs: noted Imaging: noted Assessment/Plan 1. Anemia due to underlying chronic disease. Have reviewed prior workup, ferritin is >1000, though percent saturation Tsat <30, but not recommended for further iron --> Continue to closely monitor. --> Transfuse if hgb <7 --> if ferritin <500, give iron suppl --> give epogen, has been started once a week --> monitor for gi bleed 2. Leukopenia likely reactive process v infection --> hepatitis and hiv prior negative --> neutropenic precautions if ANC <1500 --> trending stable --> imaging reviewed and no hsm / cirrhosis noted 3. End-stage renal disease, on hemodialysis three times a week. --> renal consulted 4. History of coronary artery disease. --> cards reviewed --> with fluid overload may need diuresis 5. History of anemia due to low B12, low iron. --> b12 is currently within normal limits --> reobtain q6mo 6. Dizziness and unsteady gait. 7. DVt ppsx with SCDs Greatly appreciate consultation. Carl Daniels MD Apr 19, 2019 08:52
[2019-04-19] MEDS: Docusate 100mg cap ORAL SCH ×3 (08:53→18:00)
[2019-04-19] MEDS: Metoprolol Tartrate 50mg tab ORAL SCH ×2 (08:53→20:53)
[2019-04-19] MEDS: Sennosides 8.6mg tab ORAL SCH (08:54)
[2019-04-19] MEDS: Lisinopril 20mg tab ORAL SCH ×2 (08:54→18:33)
[2019-04-19] MEDS: Heparin 5000 units/ml inj SUBQ SCH ×2 (08:58→20:56)
--- NOTE | 2019-04-19 09:00 | History and Physical Report ---
DATE OF ADMISSION: 04/18/2019 HISTORY OF PRESENT ILLNESS: The patient has end-stage renal disease, on hemodialysis, comes in with shortness of breath. She had chest x-ray which shows congestion. The patient has dyspnea and renal failure. The patient also complains of cough and shortness of breath for the past couple of days. Denies wheezing. Denies nausea, vomiting, and diarrhea. Denies abdominal pain. PAST MEDICAL HISTORY: Hypertension, history of asthma, end-stage renal disease, on hemodialysis, hyperlipidemia, neuropathy, NIDDM, hypothyroidism, GERD, and constipation. PAST SURGICAL HISTORY: Related to dialysis. ALLERGIES: No known allergies. CURRENT MEDICATIONS: Lipitor, Colace, ferrous sulfate, gabapentin, hydralazine, Levemir, labetalol, Levoxyl, lisinopril, metoprolol, and Senokot. FAMILY HISTORY: Noncontributory. SOCIAL HISTORY: Denies smoking, alcohol, or illicit drugs. REVIEW OF SYSTEMS: HEENT: Headaches. RESPIRATORY: Reports shortness of breath and cough for a couple of days. CARDIOVASCULAR: Regular rate and rhythm. GASTROINTESTINAL: Abdomen is soft. No nausea, vomiting, or diarrhea. EXTREMITIES: Does have some edema in the lower extremities. NEUROLOGIC: Denies change in speech pattern. PHYSICAL EXAMINATION: VITAL SIGNS: Temperature is 97.7, pulse is 97, and blood pressure 160/76. HEENT: PERRLA. NECK: Supple. No lymphadenopathy. CHEST: Bibasilar rales. CARDIOVASCULAR: Regular rate and rhythm. ABDOMEN: Soft and nontender. Positive bowel sounds. No organomegaly. EXTREMITIES: 1+ edema. Reflexes in both sides. Moves all four extremities. LABORATORY DATA: WBC of 3.7, hemoglobin 10.4, and platelets of 199,000. Sodium 144, potassium 3, BUN of 11, creatinine of 2.6, and glucose of 126. ASSESSMENT AND PLAN: Shortness of breath, pulmonary congestion, end-stage renal disease, on hemodialysis, and hypokalemia. I have asked Dr. Herbert and Dr. Falk as well as Dr. Kalin Briseno to see the patient for the treatment of the above-mentioned diagnoses as well as rule out pneumonia versus bronchitis. Makenna Daniel M.D. DR: MARTIN JOB#: [id number] CC:
[2019-04-19 11:01] LABS: % IRON SATURATION 11 % (15-50); IRON 33 ug/dL (50-175); TOTAL IRON BINDING CAPACITY 302 ug/dL (250-450)
[2019-04-19 12:00] VITALS: BP 152/77
[2019-04-19] MEDS: Acetaminophen 500mg (ES) tab ORAL PRN (12:20)
--- NOTE | 2019-04-19 13:29 | Nephrology Progress Note ---
Assessment/Plan Problem List: (1) ESRD (end stage renal disease) (2) Respiratory distress (3) Anemia in chronic kidney disease (CKD) (4) Diabetic nephropathy with proteinuria (5) Hypertensive kidney disease Assessment ESRD Pulm EDema DM HTN Anemia Low B12 and Iron by history CAD . Plan BP meds- adjusted 2D Echo Ej Fx 50 % Pulm support per orders HD in am + UF add levemir HS Subjective ROS Limited/Unobtainable: No Constitutional: Reports: malaise, other - much less SOB Objective Objective Last 24 Hour Vital Signs Date Time Temp Pulse Resp B/P (MAP) Pulse Ox O2 Delivery O2 Flow Rate FiO2 04/19/19 12:00 97.5 78 18 152/77 (102) 99 04/19/19 12:00 2.0 04/19/19 12:00 Nasal Cannula 2.0 04/19/19 11:54 76 04/19/19 11:21 72 19 99 Nasal Cannula 2.0 28 04/19/19 11:11 78 20 98 Nasal Cannula 2.0 28 04/19/19 08:54 80 158/76 04/19/19 08:54 158/76 04/19/19 08:53 80 158/76 04/19/19 08:00 98.8 80 18 158/76 (103) 100 04/19/19 08:00 Nasal Cannula 2.0 04/19/19 08:00 2.0 04/19/19 07:43 80 04/19/19 07:08 78 20 100 Nasal Cannula 2.0 28 75 21 99 04/19/19 07:00 99 Nasal Cannula 2.0 28 04/19/19 04:00 2.0 04/19/19 04:00 Nasal Cannula 2.0 04/19/19 04:00 91 04/19/19 04:00 99.0 93 18 155/72 (99) 97 04/19/19 03:34 91 20 100 Nasal Cannula 2.0 28 04/19/19 03:24 90 20 100 04/19/19 00:59 90 15 98 Facial 30 04/19/19 00:07 89 19 100 Bi-Pap 30 04/19/19 00:00 30 04/19/19 00:00 90 04/19/19 00:00 98.1 92 20 170/83 (112) 98 9/17/19 00:00 Nasal Cannula 2.0 04/18/19 23:57 89 20 96 04/18/19 23:55 89 20 96 Facial 30 04/18/19 23:32 170/83 04/18/19 20:19 78 170/76 04/18/19 20:04 75 20 99 Nasal Cannula 2.0 28 04/18/19 20:00 Nasal Cannula 2.0 04/18/19 20:00 2.0 04/18/19 20:00 98.2 83 18 175/76 (109) 96 04/18/19 20:00 84 04/18/19 19:54 79 20 99 Nasal Cannula 2.0 28 04/18/19 19:54 78 20 99 04/18/19 19:54 99 Nasal Cannula 2.0 28 04/18/19 17:42 73 160/76 04/18/19 17:42 160/76 04/18/19 16:53 73 04/18/19 16:40 97.7 97 18 160/76 (104) 97 04/18/19 16:01 Nasal Cannula 2.0 04/18/19 15:23 98.3 74 18 172/136 94 Bi-pap 21 04/18/19 14:38 21 04/18/19 14:12 98.4 76 15 170/142 97 Room Air Intake and Output 04/18/19 04/19/19 19:00 07:00 Intake Total 200 ml Balance 200 ml Intake Oral 200 ml # Voids 1 Laboratory Tests 04/18/19 13:37: White Blood Count 3.7L, Red Blood Count 3.46L, Hemoglobin 10.4L, Hematocrit 32.4L, Mean Corpuscular Volume 94, Mean Corpuscular Hemoglobin 30.1, Mean Corpuscular Hemoglobin Concent 32.1, Red Cell Distribution Width 14.7, Platelet Count 199, Mean Platelet Volume 5.6L, Neutrophils (%) (Auto) 69.8, Lymphocytes ( %) (Auto) 16.7L, Monocytes (%) (Auto) 7.7, Eosinophils (%) (Auto) 4.7H, Basophils (%) (Auto) 1.1, Sodium Level 144, Potassium Level 3.0L, Chloride Level 99, Carbon Dioxide Level 39H, Anion Gap 6, Blood Urea Nitrogen 11, Creatinine 2.6H, Estimat Glomerular Filtration Rate 18.2, Glucose Level 126H, Calcium Level 8.4L, Total Bilirubin 0.8, Aspartate Amino Transf (AST/SGOT) 16, Alanine Aminotransferase (ALT/SGPT) 6L, Alkaline Phosphatase 105, Total Creatine Kinase 154, Creatine Kinase MB 1.0, Creatine Kinase MB Relative Index 0.6, Troponin I 0.030, Total Protein 7.6, Albumin 3.8, Globulin 3.8, Albumin/ Globulin Ratio 1.0 04/18/19 14:45: Arterial Blood pH 7.475H, Arterial Blood Partial Pressure CO2 53.0H, Arterial Blood Partial Pressure O2 54.3L, Arterial Blood HCO3 38.1H, Arterial Blood Oxygen Saturation 87.9*L, Arterial Blood Base Excess 12.8*H, Faheem Test Positive 04/19/19 03:30: Iron Level 33L, Total Iron Binding Capacity 302, Percent Iron Saturation 11L, Unsaturated Iron Binding 269 04/19/19 03:35: White Blood Count 3.5L, Red Blood Count 3.21L, Hemoglobin 9.9L, Hematocrit 30.3L , Mean Corpuscular Volume 94, Mean Corpuscular Hemoglobin 30.9, Mean Corpuscular Hemoglobin Concent 32.8, Red Cell Distribution Width 13.5, Platelet Count 188, Mean Platelet Volume 6.6, Neutrophils (%) (Auto) 71.8, Lymphocytes (% ) (Auto) 13.9L, Monocytes (%) (Auto) 8.5, Eosinophils (%) (Auto) 4.5H, Basophils (%) (Auto) 1.3, Sodium Level 141, Potassium Level 3.7, Chloride Level 99, Carbon Dioxide Level 36H, Anion Gap 6, Blood Urea Nitrogen 20H, Creatinine 3.8H, Estimat Glomerular Filtration Rate 11.7, Glucose Level 216H, Calcium Level 7.8L, Total Bilirubin 1.0, Aspartate Amino Transf (AST/SGOT) 16, Alanine Aminotransferase (ALT/SGPT) 7L, Alkaline Phosphatase 104, Total Creatine Kinase 143, Troponin I 0.025, Total Protein 7.2, Albumin 3.5, Globulin 3.7, Albumin/ Globulin Ratio 0.9L, Hemoglobin A1c 7.1H, Uric Acid 4.1, Phosphorus Level 2.9, Magnesium Level 1.9, Ferritin 638H, Gamma Glutamyl Transpeptidase 56, C- Reactive Protein, Quantitative 1.4H, Pro-B-Type Natriuretic Peptide > [id number], Triglycerides Level 124, Cholesterol Level 79, LDL Cholesterol 31, HDL Cholesterol 35L, Cholesterol/HDL Ratio 2.3L, Vitamin B12 Level 464, Folate 9.6, Thyroid Stimulating Hormone (TSH) 3.424, Free Thyroxine 1.14, Free Triiodothyronine 2.0L Height (Feet): 4 Height (Inches): 11.00 Weight (Pounds): 165 General Appearance: no apparent distress Cardiovascular: normal rate Respiratory/Chest: decreased breath sounds Abdomen: soft, distended Francis Falk MD Apr 19, 2019 13:29
--- NOTE | 2019-04-19 14:18 | NUR ---
CASE MANAGEMENT:REVIEW 69 YR OLD FEMALE FROM [facility] CC: SOB AND ELEVATED BP SI: RENAL FAILURE. DYSPNEA 98.4 75 28 198/68 86% ON RA CR+2.6 K-3.0 PH-7.47 PCO2+53.0 PO2+54.3 HC03+87.9 IS: BIPAP K-DUR PO X1 CXR : TO STEP DOWN UNIT
[2019-04-19] MEDS: Aspirin Baby 81mg ORAL SCH (14:32)
[2019-04-19 16:00] VITALS: BP 149/76
--- NOTE | 2019-04-19 17:10 | Pulmonology Progress Note ---
Assessment/Plan Assessment/Plan Pulmonary Progress Note HPI Patient is a 69 year old woman presenting with shortness of breath/cough ongoing for several days, patient has CKD, HTN, DM, CAD, Asthma, receives dialysis on Thursday and Fridays, had her dialysis this morning Otherwise he denies any fever, no nausea, vomiting or diarrhea, has fatigue and malaise, no chest pain. Allergies: No Known Allergies Past Medical History: CKD on HD, HTN, DM, Asthma, previous CAD All Other Systems: negative except mentioned in HPI Physical Exam Vital Signs Noted General Appearance: no distress on BiPAP Head: normocephalic, atraumatic Eyes: bilateral eye PERRL, bilateral eye EOMI ENT: moist mm Neck: no LN Respiratory: no retraction, no accessory muscle use, CTAB Cardiovascular: normal peripheral pulses, regular rate, rhythm, no JVD, no murmur, normal hS1/HS2 Gastrointestinal: normal bowel sounds, non tender, soft, no mass, no organomegaly, non-distended, no guarding, no hernia, no pulsatile mass, no rebound Genitourinary: no CVA tenderness Musculoskeletal: normal inspection - AV left arm Neurologic: oriented x3, responsive, nitriles lab technician III-XII nml as tested, motor strength/ tone normal, sensory intact Skin: no rash, no edema Impression: Respiratory distress Pulmonary congestion on CXR ESRD (end stage renal disease) on HD Hypertension Diabetes CAD Plan: BiPAP 15/5 HD per Renal O2 PRN HHN PRN Monitor labs PPX ISS VQ low probability Labs Test 04/18/19 13:37 White Blood Count 3.7 K/UL (4.8-10.8) Red Blood Count 3.46 M/UL (4.20-5.40) Hemoglobin 10.4 G/DL (12.0-16.0) Hematocrit 32.4 % (37.0-47.0) Mean Corpuscular Volume 94 FL (80-99) Mean Corpuscular Hemoglobin 30.1 PG (27.0-31.0) Mean Corpuscular Hemoglobin Concent 32.1 G/DL (32.0-36.0) Red Cell Distribution Width 14.7 % (11.6-14.8) Platelet Count 199 K/UL (150-450) Mean Platelet Volume 5.6 FL (6.5-10.1) Neutrophils (%) (Auto) 69.8 % (45.0-75.0) Lymphocytes (%) (Auto) 16.7 % (20.0-45.0) Monocytes (%) (Auto) 7.7 % (1.0-10.0) Eosinophils (%) (Auto) 4.7 % (0.0-3.0) Basophils (%) (Auto) 1.1 % (0.0-2.0) Sodium Level 144 MMOL/L (136-145) Potassium Level 3.0 MMOL/L (3.5-5.1) Chloride Level 99 MMOL/L (98-107) Carbon Dioxide Level 39 MMOL/L (21-32) Anion Gap 6 mmol/L (5-15) Blood Urea Nitrogen 11 mg/dL (7-18) Creatinine 2.6 MG/DL (0.55-1.30) Estimat Glomerular Filtration Rate 18.2 mL/min (>60) Glucose Level 126 MG/DL (74-106) Calcium Level 8.4 MG/DL (8.5-10.1) Troponin I 0.030 ng/mL (0.000-0.056) Chest X-Ray: no consolidation, no pneumothorax, other - pulmonary congestion VQ low probability Subjective ROS Limited/Unobtainable: No Allergies: Coded Allergies: No Known Allergies (Unverified , 05/12/17) Objective Last 24 Hour Vital Signs Date Time Temp Pulse Resp B/P (MAP) Pulse Ox O2 Delivery O2 Flow Rate FiO2 04/19/19 16:00 97.5 71 18 149/76 (100) 100 72 04/19/19 14:49 74 18 99 Nasal Cannula 2.0 28 04/19/19 14:39 76 18 96 Nasal Cannula 2.0 28 04/19/19 12:00 97.5 78 18 152/77 (102) 99 04/19/19 12:00 2.0 04/19/19 12:00 Nasal Cannula 2.0 04/19/19 11:54 76 04/19/19 11:21 72 19 99 Nasal Cannula 2.0 28 04/19/19 11:11 78 20 98 Nasal Cannula 2.0 04/19/19 08:54 80 158/76 04/19/19 08:54 158/76 04/19/19 08:53 80 158/76 04/19/19 08:00 98.8 80 18 158/76 (103) 100 04/19/19 08:00 Nasal Cannula 2.0 04/19/19 08:00 2.0 04/19/19 07:43 80 04/19/19 07:08 78 20 100 Nasal Cannula 2.0 28 75 21 99 04/19/19 07:00 99 Nasal Cannula 2.0 28 04/19/19 04:00 2.0 04/19/19 04:00 Nasal Cannula 2.0 04/19/19 04:00 91 04/19/19 04:00 99.0 93 18 155/72 (99) 97 04/19/19 03:34 91 20 100 Nasal Cannula 2.0 28 04/19/19 03:24 90 20 100 04/19/19 00:59 90 15 98 Facial 30 04/19/19 00:07 89 19 100 Bi-Pap 30 04/19/19 00:00 30 04/19/19 00:00 90 04/19/19 00:00 98.1 92 20 170/83 (112) 98 04/19/19 00:00 Nasal Cannula 2.0 04/18/19 23:57 89 20 96 04/18/19 23:55 89 20 96 Facial 30 04/18/19 23:32 170/83 04/18/19 20:19 78 170/76 04/18/19 20:04 75 20 99 Nasal Cannula 2.0 28 04/18/19 20:00 Nasal Cannula 2.0 04/18/19 20:00 2.0 04/18/19 20:00 98.2 83 18 175/76 (109) 96 04/18/19 20:00 84 04/18/19 19:54 79 20 99 Nasal Cannula 2.0 28 04/18/19 19:54 78 20 99 04/18/19 19:54 99 Nasal Cannula 2.0 28 04/18/19 17:42 73 160/76 04/18/19 17:42 160/76 Intake and Output 04/18/19 04/19/19 19:00 07:00 Intake Total 200 ml Balance 200 ml Intake Oral 200 ml # Voids 1 Laboratory Tests 04/19/19 03:30: Iron Level 33L, Total Iron Binding Capacity 302, Percent Iron Saturation 11L, Unsaturated Iron Binding 269 04/19/19 03:35: White Blood Count 3.5L, Red Blood Count 3.21L, Hemoglobin 9.9L, Hematocrit 30.3L , Mean Corpuscular Volume 94, Mean Corpuscular Hemoglobin 30.9, Mean Corpuscular Hemoglobin Concent 32.8, Red Cell Distribution Width 13.5, Platelet Count 188, Mean Platelet Volume 6.6, Neutrophils (%) (Auto) 71.8, Lymphocytes (% ) (Auto) 13.9L, Monocytes (%) (Auto) 8.5, Eosinophils (%) (Auto) 4.5H, Basophils (%) (Auto) 1.3, Sodium Level 141, Potassium Level 3.7, Chloride Level 99, Carbon Dioxide Level 36H, Anion Gap 6, Blood Urea Nitrogen 20H, Creatinine 3.8H, Estimat Glomerular Filtration Rate 11.7, Glucose Level 216H, Hemoglobin A1c 7.1H, Uric Acid 4.1, Calcium Level 7.8L, Phosphorus Level 2.9, Magnesium Level 1.9, Ferritin 638H, Total Bilirubin 1.0, Gamma Glutamyl Transpeptidase 56 , Aspartate Amino Transf (AST/SGOT) 16, Alanine Aminotransferase (ALT/SGPT) 7L, Alkaline Phosphatase 104, Total Creatine Kinase 143, Troponin I 0.025, C- Reactive Protein, Quantitative 1.4H, Pro-B-Type Natriuretic Peptide > 36916E, Total Protein 7.2, Albumin 3.5, Globulin 3.7, Albumin/Globulin Ratio 0.9L, Triglycerides Level 124, Cholesterol Level 79, LDL Cholesterol 31, HDL Cholesterol 35L, Cholesterol/HDL Ratio 2.3L, Vitamin B12 Level 464, Folate 9.6, Thyroid Stimulating Hormone (TSH) 3.424, Free Thyroxine 1.14, Free Triiodothyronine 2.0L Current Medications Medications (Trade) Dose Ordered Sig/Toya Route PRN Reason Start Time Stop Time Status Last Admin Dose Admin Acetaminophen (Tylenol) 500 mg Q4H PRN ORAL Mild Pain/Temp > 100.5 04/18/19 15:45 05/18/19 15:44 04/19/19 12:20 Albuterol/ Ipratropium (Albuterol/ Ipratropium) 3 ml Q4HRT HHN 04/18/19 19:00 04/23/19 18:59 04/19/19 14:39 Amlodipine Besylate (Norvasc) 10 mg DAILY ORAL 04/19/19 09:00 05/19/19 08:59 04/19/19 08:54 Aspirin (ASA) 81 mg DAILY ORAL 04/19/19 13:37 05/19/19 13:36 04/19/19 14:32 Atorvastatin Calcium (Lipitor) 10 mg BEDTIME ORAL 04/19/19 21:00 05/18/19 20:59 Dextrose (Dextrose 50%) 25 ml Q30M PRN IV Hypoglycemia 04/18/19 15:45 05/18/19 15:44 Dextrose (Dextrose 50%) 50 ml Q30M PRN IV Hypoglycemia 04/18/19 15:45 05/18/19 15:44 Docusate Sodium (Colace) 100 mg TID ORAL 04/18/19 18:00 05/18/19 17:59 04/19/19 12:18 Folic Acid (Folate) 3 mg DAILY ORAL 04/19/19 09:00 05/19/19 08:59 04/19/19 08:53 Gabapentin (Neurontin) 300 mg Q8HR ORAL 04/18/19 17:00 05/18/19 16:59 04/19/19 14:32 Guaifenesin/ Dextromethorphan (Robitussin DM Syrup) 5 ml Q6H PRN ORAL For Cough 04/19/19 06:45 05/19/19 06:44 04/19/19 12:18 Heparin Sodium (Porcine) (Heparin 5000 units/ml) 5,000 units EVERY 12 HOURS SUBQ 04/18/19 21:00 05/18/19 20:59 04/19/19 08:58 Hydralazine HCl (Apresoline) 25 mg Q4H PRN ORAL prn bp over 160 syst 04/18/19 16:45 05/18/19 16:44 04/18/19 23:32 Insulin Aspart (NovoLOG) BEFORE MEALS AND HS SUBQ 04/18/19 16:30 05/18/19 16:29 04/19/19 12:18 Insulin Detemir (Levemir) 15 units BEDTIME SUBQ 04/19/19 21:00 05/19/19 20:59 Levothyroxine Sodium (Synthroid) 100 mcg DAILY@0630 ORAL 04/19/19 06:30 05/19/19 06:29 04/19/19 06:38 Lisinopril (Prinivil) 20 mg BID ORAL 04/18/19 18:00 05/18/19 17:59 04/19/19 08:54 Metoclopramide HCl (Reglan) 10 mg Q6H PRN IVP Nausea & Vomiting 04/18/19 17:00 05/18/19 16:59 Metoprolol Tartrate (Lopressor) 50 mg EVERY 12 HOURS ORAL 04/18/19 21:00 05/18/19 20:59 04/19/19 08:53 Pantoprazole (Protonix) 40 mg EVERY 12 HOURS ORAL 04/18/19 21:00 05/18/19 20:59 04/19/19 08:54 Sennosides (Senokot) 8.6 mg DAILY ORAL 04/19/19 09:00 05/19/19 08:59 04/19/19 08:54 Tramadol HCl (Ultram) 50 mg Q6H PRN ORAL pain 6 - 10 04/18/19 17:00 04/25/19 16:59 Brandon Herbert MD Apr 19, 2019 17:10
--- NOTE | 2019-04-19 18:02 | Cardiology Report ---
APPROVED REPORT EXAM: Two-dimensional and M-mode echocardiogram with Doppler and color Doppler. INDICATION Congestive Heart Failure M-Mode DIMENSIONS IVSd1.3 (0.7-1.1cm)Left Atrium (MM)3.7 (1.6-4.0cm) LVDd6.1 (3.5-5.6cm)Aortic Root3.6 (2.0-3.7cm) PWd1.3 (0.7-1.1cm)Aortic Cusp Exc.1.1 (1.5-2.0cm) IVSs1.4 cm LVDs4.5 (2.5-4.0cm) PWs1.8 cm Mild left ventricular enlargement . Borderline normal systolic function and wall motion . Left ventricular ejection fraction estimated to be 50 %. Mild left ventricular hypertrophy. Moderate pericardial effusion along with RA and RV wall . Moderate left atrial enlargement . Mild right atrial and right ventricular enlargement . Aortic valve calcification with decreased cusp excursion c/w aortic stenosis the aortic valve appears bicuspid . Thickened mitral valve leaflets with normal excursion. Mitral annulus and aortic root calcification. Normal pulmonic valve structure. Normal tricuspid valve structure. IVC at 2.2 cm without physiologic collapse suggestive of increased RA pressure. A color flow and spectral Doppler study was performed and revealed: Trace aortic insufficiency. Peak aortic valve gradient of 33 mm Hg and a mean of 18 mmHg. Aortic valve area 1.5 cm2 calculated by continuity equation. Mild to moderate mitral regurgitation. Mitral inflow velocities indicates possible pseudo normalization pattern implying moderately elevated left atrial pressure (Grade II ). Moderate tricuspid regurgitation. Tricuspid systolic velocities suggests peak right ventricular systolic pressure of 56 mmHg,consistent with moderate pulmonary hypertension. Trace pulmonic regurgitation present.
--- NOTE | 2019-04-19 18:12 | Cardiology Report ---
APPROVED REPORT EKG Measurement Heart [id number] Normal sinus rhythm Prolonged QT Abnormal ECG
--- NOTE | 2019-04-19 18:15 | Consultation ---
DATE OF CONSULTATION: 04/19/2019 INFECTIOUS DISEASE CONSULTATION CONSULTING PHYSICIAN: Kalin Briseno M.D. PRIMARY ATTENDING PHYSICIAN: Makenna Daniel M.D. REASON FOR CONSULTATION: Pneumonia, congestion. HISTORY OF PRESENT ILLNESS: The patient is a 69-year-old female, admitted yesterday, complaining of cough and shortness of breath. The patient had history of end-stage renal disease, on hemodialysis. At the time of admission, she was hypoxemic to pO2 of 54.3, first time she was on BiPAP. PAST MEDICAL HISTORY: She has diabetes mellitus, hypertension, history of colonic polyps, hypertension, obesity, anemia, asthma, previous coronary artery disease. PAST SURGICAL HISTORY: AV fistula placement. ALLERGIES: No known drug allergies. MEDICATIONS: Getting atorvastatin, Levemir insulin, aspirin, folic acid, Senokot, amlodipine, Robitussin, dextromethorphan syrup, levothyroxine, metoprolol, Protonix, DuoNeb inhaler, Colace, lisinopril, gabapentin, metoclopramide, tramadol, hydralazine, insulin, Tylenol. SOCIAL HISTORY: Single. No history of alcohol, drug abuse, or smoking. Originally from [facility]. REVIEW OF SYSTEMS: No fever. No chills. No runny nose and has nonproductive cough. She had three bowel movements today. PHYSICAL EXAMINATION: VITAL SIGNS: Temperature 97.5, pulse 78, blood pressure is 152/77. GENERAL APPEARANCE: Seems to be well developed, in no acute distress, ambulating in the room. HEAD AND NECK: [place] conjunctivae. Getting oxygen by nasal cannula. HEART: Normal rate. LUNGS: Clear. Mild kyphosis. ABDOMEN: Obese and soft. EXTREMITIES: Has no significant edema. NEUROLOGIC: She is awake, alert, oriented x3. LABORATORY DATA: WBC is 2.5, hemoglobin 9.9, hematocrit 30.3, platelets 188,000. Sodium 141, potassium 3.7, chloride 99, bicarbonate 36, BUN 20, creatinine 3.8, glucose 216. BNP is more than 35,000. Albumin is 3.5. Echocardiogram showed normal ejection fraction, diastolic CHF, and aortic stenosis. V/Q scan showed low probability of pulmonary emboli. Chest x-ray showed moderate congestive heart failure. IMPRESSION: 1. Shortness of breath and cough, likely secondary to congestive heart failure. 2. Hypoxemic respiratory failure. 3. End-stage renal disease, on hemodialysis. 4. Diabetes mellitus. 5. Diastolic CHF. 6. Aortic stenosis. 7. Hypertension. 8. Anemia. 9. Leukopenia. RECOMMENDATIONS: 1. Continue off of antibiotic. 2. We will follow up the chest x-ray. 3. We will continue bronchodilators. At the end of my exam, I thank Dr. Daniel for involving me in the care of this patient. Kalin Briseno M.D. DR: EARL JOB#: [id number] CC:
--- NOTE | 2019-04-19 19:05 | NUR ---
NURSE NOTES: Pt report received from Tamika RN JOHANNA. pt remains stable. vital signs stable. pt is alert and oriented times 4 and is able to follow commands. pt court recording monitor shows NSR, no distress noted. pt is on 2 L NC and able to sat at 98%, no distress noted resp garcia. pt bed is low, locked, armed, bed rails up times 3, call light within reach. will continue plan of care.
--- NOTE | 2019-04-19 19:27 | NUR ---
HAND-OFF: Report given to Eleuterio LITTLE. Pt. remain stable. HD tomorrow.
[2019-04-19 20:00] VITALS: BP 138/63
[2019-04-19] MEDS ORDERED: Levemir Flexpen SUBQ SCH (21:00)
--- NOTE | 2019-04-19 21:29 | General Progress Note ---
Assessment/Plan Problem List: (1) Pulmonary congestion ICD Codes: R09.89 - Other specified symptoms and signs involving the circulatory and respiratory systems SNOMED: 91148018 (2) Pneumonia ICD Codes: J18.9 - Pneumonia, unspecified organism SNOMED: 178822068 (3) Renal failure ICD Codes: N19 - Unspecified kidney failure SNOMED: 11044633 (4) ESRD (end stage renal disease) ICD Codes: N18.6 - End stage renal disease SNOMED: 75919495 (5) Dyspnea ICD Codes: R06.00 - Dyspnea, unspecified SNOMED: 204505648 (6) Anemia in chronic kidney disease (CKD) ICD Codes: N18.9 - Chronic kidney disease, unspecified; D63.1 - Anemia in chronic kidney disease SNOMED: 450729262 Status: progressing Assessment/Plan: afebrile nac pulmonary congestion r/o pna improved dyspnea esrd on hd needs more diaylsis Subjective ROS Limited/Unobtainable: Yes Allergies: Coded Allergies: No Known Allergies (Unverified , 05/12/17) Objective Last 24 Hour Vital Signs Date Time Temp Pulse Resp B/P (MAP) Pulse Ox O2 Delivery O2 Flow Rate FiO2 04/19/19 20:53 73 138/63 04/19/19 20:00 99 Nasal Cannula 2.0 28 04/19/19 19:59 78 18 100 Nasal Cannula 2.0 73 18 99 04/19/19 18:33 149/76 04/19/19 16:00 Nasal Cannula 2.0 04/19/19 16:00 97.5 71 18 149/76 (100) 100 72 04/19/19 16:00 2.0 04/19/19 16:00 76 04/19/19 15:27 76 04/19/19 14:49 74 18 99 Nasal Cannula 2.0 28 04/19/19 14:39 76 18 96 Nasal Cannula 2.0 28 04/19/19 12:00 97.5 78 18 152/77 (102) 99 04/19/19 12:00 2.0 04/19/19 12:00 Nasal Cannula 2.0 04/19/19 11:54 76 04/19/19 11:54 76 04/19/19 11:21 72 19 99 Nasal Cannula 2.0 28 04/19/19 11:11 78 20 98 Nasal Cannula 2.0 28 04/19/19 08:54 80 158/76 04/19/19 08:54 158/76 04/19/19 08:53 80 158/76 04/19/19 08:00 98.8 80 18 158/76 (103) 100 04/19/19 08:00 Nasal Cannula 2.0 04/19/19 08:00 2.0 04/19/19 07:43 80 04/19/19 07:43 80 04/19/19 07:08 78 20 100 Nasal Cannula 2.0 28 75 21 99 04/19/19 07:00 99 Nasal Cannula 2.0 28 04/19/19 04:00 2.0 04/19/19 04:00 Nasal Cannula 2.0 04/19/19 04:00 91 04/19/19 04:00 99.0 93 18 155/72 (99) 97 04/19/19 03:34 91 20 100 Nasal Cannula 2.0 28 04/19/19 03:24 90 20 100 04/19/19 00:59 90 15 98 Facial 30 04/19/19 00:07 89 19 100 Bi-Pap 30 04/19/19 00:00 30 04/19/19 00:00 90 04/19/19 00:00 98.1 92 20 170/83 (112) 98 04/19/19 00:00 Nasal Cannula 2.0 04/18/19 23:57 89 20 96 04/18/19 23:55 89 20 96 Facial 30 04/18/19 23:32 170/83 Intake and Output 04/18/19 04/19/19 18:59 06:59 Intake Total 200 ml Balance 200 ml Intake Oral 200 ml # Voids 1 Laboratory Tests 04/19/19 03:30: Iron Level 33L, Total Iron Binding Capacity 302, Percent Iron Saturation 11L, Unsaturated Iron Binding 269 04/19/19 03:35: White Blood Count 3.5L, Red Blood Count 3.21L, Hemoglobin 9.9L, Hematocrit 30.3L , Mean Corpuscular Volume 94, Mean Corpuscular Hemoglobin 30.9, Mean Corpuscular Hemoglobin Concent 32.8, Red Cell Distribution Width 13.5, Platelet Count 188, Mean Platelet Volume 6.6, Neutrophils (%) (Auto) 71.8, Lymphocytes (% ) (Auto) 13.9L, Monocytes (%) (Auto) 8.5, Eosinophils (%) (Auto) 4.5H, Basophils (%) (Auto) 1.3, Sodium Level 141, Potassium Level 3.7, Chloride Level 99, Carbon Dioxide Level 36H, Anion Gap 6, Blood Urea Nitrogen 20H, Creatinine 3.8H, Estimat Glomerular Filtration Rate 11.7, Glucose Level 216H, Hemoglobin A1c 7.1H, Uric Acid 4.1, Calcium Level 7.8L, Phosphorus Level 2.9, Magnesium Level 1.9, Ferritin 638H, Total Bilirubin 1.0, Gamma Glutamyl Transpeptidase 56 , Aspartate Amino Transf (AST/SGOT) 16, Alanine Aminotransferase (ALT/SGPT) 7L, Alkaline Phosphatase 104, Total Creatine Kinase 143, Troponin I 0.025, C- Reactive Protein, Quantitative 1.4H, Pro-B-Type Natriuretic Peptide > 18655R, Total Protein 7.2, Albumin 3.5, Globulin 3.7, Albumin/Globulin Ratio 0.9L, Triglycerides Level 124, Cholesterol Level 79, LDL Cholesterol 31, HDL Cholesterol 35L, Cholesterol/HDL Ratio 2.3L, Vitamin B12 Level 464, Folate 9.6, Thyroid Stimulating Hormone (TSH) 3.424, Free Thyroxine 1.14, Free Triiodothyronine 2.0L Height (Feet): 4 Height (Inches): 11.00 Weight (Pounds): 169 Neck: supple Respiratory/Chest: lungs clear Abdomen: non tender Makenna Daniel MD Apr 19, 2019 21:29
[2019-04-20] VITALS: BP 146/73
[2019-04-20] MEDS: Albuterol/Ipratropium 3ml neb HHN SCH ×6 (03:38→23:03)
[2019-04-20 04:00] VITALS: BP 143/77
[2019-04-20 04:45] LABS: HEMATOCRIT 29.3 % (37.0-47.0); HEMOGLOBIN 9.6 G/DL (12.0-16.0); MEAN CORPUSCULAR VOLUME 94 FL (80-99); PLATELET COUNT 174 K/UL (150-450); RED BLOOD COUNT 3.13 M/UL (4.20-5.40); RED CELL DISTRIBUTION WIDTH 14.5 % (11.6-14.8); WHITE BLOOD COUNT 3.1 K/UL (4.8-10.8)
[2019-04-20 05:17] LABS: ALANINE AMINOTRANSFERASE < 6 U/L (12-78); ALBUMIN 3.5 G/DL (3.4-5.0); ALKALINE PHOSPHATASE 95 U/L (46-116); ANION GAP 5 mmol/L (5-15); ASPARTATE AMINO TRANSFERASE 13 U/L (15-37); BILIRUBIN,TOTAL 0.7 MG/DL (0.2-1.0); BLOOD UREA NITROGEN 34 mg/dL (7-18); CALCIUM 7.3 MG/DL (8.5-10.1); CARBON DIOXIDE 36 MMOL/L (21-32); CHLORIDE 100 MMOL/L (98-107); POTASSIUM 3.6 MMOL/L (3.5-5.1); SODIUM 141 MMOL/L (136-145)
--- NOTE | 2019-04-20 05:25 | NUR ---
NURSE NOTES: Pt BS is 55. pt is a symptomatic, vital signs stable and is still responsive. pt is fed one cup orange juice with added sugar and apple sauce with added sugar. will re- evaluate BS within 30 min.
[2019-04-20] MEDS: NovoLOG Insulin Flexpen SUBQ SCH ×4 (06:02→21:49)
--- NOTE | 2019-04-20 06:11 | NUR ---
NURSE NOTES: Spoke with Prudence from [facility] to verify scheduled Dialysis for today. she stated she will speak to telecommunications network engineer laser engineer.
--- NOTE | 2019-04-20 06:18 | Hematology/Onc Progress Note ---
Assessment/Plan Assessment/Plan Assessment/Plan 1. Anemia due to underlying chronic disease. Have reviewed prior workup, ferritin is >1000, though percent saturation Tsat <30, but not recommended for further iron --> Continue to closely monitor. --> Transfuse if hgb <7 --> ferritin is >600, therefore hold off oniron --> started epogen, has been started with hd --> hgb trend 9.6 --> monitor for gi bleed 2. Leukopenia likely reactive process v infection --> hepatitis and hiv prior negative --> neutropenic precautions if ANC <1500 --> trending stable --> imaging reviewed and no hsm / cirrhosis noted prior 3. End-stage renal disease, on hemodialysis three times a week. --> renal consulted --> hd for 04/20 4. History of coronary artery disease. --> cards reviewed --> with fluid overload may need diuresis 5. History of anemia due to low B12, low iron. --> b12 is currently within normal limits --> reobtain q6mo 6. Dizziness and unsteady gait. 7. DVt ppsx with heparin sq Greatly appreciate consultation. Subjective HEENT: Denies: no symptoms, eye pain, blurred vision, tearing, double vision, ear pain, ear discharge, nose pain, nose congestion, throat pain, throat swelling, mouth pain, mouth swelling, other Cardiovascular: Denies: no symptoms, chest pain, edema, irregular heart rate, lightheadedness, palpitations, syncope, other Respiratory: Denies: no symptoms, cough, shortness of breath, SOB with excertion, SOB at rest, sputum, wheezing, other Gastrointestinal/Abdominal: Denies: no symptoms, abdomen distended, abdominal pain, black stools, tarry stools, blood in stool, constipated, diarrhea, difficulty swallowing, nausea, poor appetite, poor fluid intake, rectal bleeding , vomiting, other Genitourinary: Denies: no symptoms, burning, discharge, frequency, flank pain, hematuria, incontinence, pain, urgency, other Neurologic/Psychiatric: Denies: no symptoms, anxiety, depressed, emotional problems, headache, numbness, paresthesia, pre-existing deficit, seizure, tingling, tremors, weakness, other Endocrine: Denies: no symptoms, excessive sweating, flushing, intolerance to cold, intolerance to heat, increased hunger, increased thirst, increased urine, unexplained weight gain, unexplained weight loss, other Hematologic/Lymphatic: Denies: no symptoms, anemia, easy bleeding, easy bruising, adenopathy, other Allergies: Coded Allergies: No Known Allergies (Unverified , 05/12/17) Subjective 04/20: bs was low o/n, 54 dw rn, and given oj, labs reviewed Objective Objective Current Medications Medications (Trade) Dose Ordered Sig/Toya Route PRN Reason Start Time Stop Time Status Last Admin Dose Admin Acetaminophen (Tylenol) 500 mg Q4H PRN ORAL Mild Pain/Temp > 100.5 04/18/19 15:45 05/18/19 15:44 04/19/19 12:20 Albuterol/ Ipratropium (Albuterol/ Ipratropium) 3 ml Q4HRT HHN 04/18/19 19:00 04/23/19 18:59 04/20/19 03:38 Amlodipine Besylate (Norvasc) 10 mg DAILY ORAL 04/19/19 09:00 05/19/19 08:59 04/19/19 08:54 Aspirin (ASA) 81 mg DAILY ORAL 04/19/19 13:37 05/19/19 13:36 04/19/19 14:32 Atorvastatin Calcium (Lipitor) 10 mg BEDTIME ORAL 04/19/19 21:00 05/18/19 20:59 04/19/19 20:52 Dextrose (Dextrose 50%) 25 ml Q30M PRN IV Hypoglycemia 04/18/19 15:45 05/18/19 15:44 Dextrose (Dextrose 50%) 50 ml Q30M PRN IV Hypoglycemia 04/18/19 15:45 05/18/19 15:44 Docusate Sodium (Colace) 100 mg TID ORAL 04/18/19 18:00 05/18/19 17:59 04/19/19 12:18 Folic Acid (Folate) 3 mg DAILY ORAL 04/19/19 09:00 05/19/19 08:59 04/19/19 08:53 Gabapentin (Neurontin) 300 mg Q8HR ORAL 04/18/19 17:00 05/18/19 16:59 04/20/19 06:02 Guaifenesin/ Dextromethorphan (Robitussin DM Syrup) 5 ml Q6H PRN ORAL For Cough 04/19/19 06:45 05/19/19 06:44 04/19/19 12:18 Heparin Sodium (Porcine) (Heparin 5000 units/ml) 5,000 units EVERY 12 HOURS SUBQ 04/18/19 21:00 05/18/19 20:59 04/19/19 20:56 Hydralazine HCl (Apresoline) 25 mg Q4H PRN ORAL prn bp over 160 syst 04/18/19 16:45 05/18/19 16:44 04/18/19 23:32 Insulin Aspart (NovoLOG) BEFORE MEALS AND HS SUBQ 04/18/19 16:30 05/18/19 16:29 04/19/19 20:58 Insulin Detemir (Levemir) 15 units BEDTIME SUBQ 04/19/19 21:00 05/19/19 20:59 04/19/19 20:57 Levothyroxine Sodium (Synthroid) 100 mcg DAILY@0630 ORAL 04/19/19 06:30 05/19/19 06:29 04/20/19 06:02 Lisinopril (Prinivil) 20 mg BID ORAL 04/18/19 18:00 05/18/19 17:59 04/19/19 18:33 Metoclopramide HCl (Reglan) 10 mg Q6H PRN IVP Nausea & Vomiting 04/18/19 17:00 05/18/19 16:59 Metoprolol Tartrate (Lopressor) 50 mg EVERY 12 HOURS ORAL 04/18/19 21:00 05/18/19 20:59 04/19/19 20:53 Pantoprazole (Protonix) 40 mg EVERY 12 HOURS ORAL 04/18/19 21:00 05/18/19 20:59 04/19/19 20:52 Sennosides (Senokot) 8.6 mg DAILY ORAL 04/19/19 09:00 05/19/19 08:59 04/19/19 08:54 Tramadol HCl (Ultram) 50 mg Q6H PRN ORAL pain 6 - 10 04/18/19 17:00 04/25/19 16:59 Last 24 Hour Vital Signs Date Time Temp Pulse Resp B/P (MAP) Pulse Ox O2 Delivery O2 Flow Rate FiO2 04/20/19 04:00 Nasal Cannula 2.0 04/20/19 04:00 97.0 69 18 143/77 (99) 98 69 04/20/19 04:00 2.0 04/20/19 04:00 73 04/20/19 03:40 75 18 100 Nasal Cannula 2.0 28 70 18 99 04/20/19 01:00 84 14 98 Facial 30 04/20/19 00:00 2.0 04/20/19 00:00 Nasal Cannula 2.0 04/20/19 00:00 69 04/20/19 00:00 97.2 68 20 146/73 (97) 98 68 04/19/19 22:30 89 19 98 Facial 30 89 19 98 Bi-Pap 30 04/19/19 20:53 73 138/63 04/19/19 20:00 97.3 73 20 138/63 (88) 96 73 04/19/19 20:00 Nasal Cannula 2.0 04/19/19 20:00 75 04/19/19 20:00 99 Nasal Cannula 2.0 28 04/19/19 20:00 2.0 04/19/19 19:59 78 18 100 Nasal Cannula 2.0 28 73 18 99 04/19/19 18:33 149/76 04/19/19 16:00 Nasal Cannula 2.0 04/19/19 16:00 97.5 71 18 149/76 (100) 100 72 04/19/19 16:00 2.0 04/19/19 16:00 76 04/19/19 15:27 76 04/19/19 14:49 74 18 99 Nasal Cannula 2.0 28 04/19/19 14:39 76 18 96 Nasal Cannula 2.0 28 04/19/19 12:00 97.5 78 18 152/77 (102) 99 04/19/19 12:00 2.0 04/19/19 12:00 Nasal Cannula 2.0 04/19/19 11:54 76 04/19/19 11:54 76 04/19/19 11:21 72 19 99 Nasal Cannula 2.0 28 04/19/19 11:11 78 20 98 Nasal Cannula 2.0 28 04/19/19 08:54 80 158/76 04/19/19 08:54 158/76 04/19/19 08:53 80 158/76 04/19/19 08:00 98.8 80 18 158/76 (103) 100 04/19/19 08:00 Nasal Cannula 2.0 04/19/19 08:00 2.0 04/19/19 07:43 80 04/19/19 07:43 80 04/19/19 07:08 78 20 100 Nasal Cannula 2.0 28 75 21 99 04/19/19 07:00 99 Nasal Cannula 2.0 28 04/19/19 04:00 2.0 04/19/19 04:00 Nasal Cannula 2.0 04/19/19 04:00 91 04/19/19 04:00 99.0 93 18 155/72 (99) 97 04/19/19 03:34 91 20 100 Nasal Cannula 2.0 28 04/19/19 03:24 90 20 100 04/19/19 00:59 90 15 98 Facial 30 04/19/19 00:07 89 19 100 Bi-Pap 30 04/19/19 00:00 30 04/19/19 00:00 90 04/19/19 00:00 98.1 92 20 170/83 (112) 98 04/19/19 00:00 Nasal Cannula 2.0 04/18/19 23:57 89 20 96 04/18/19 23:55 89 20 96 Facial 30 04/18/19 23:32 170/83 04/18/19 20:19 78 170/76 04/18/19 20:04 75 20 99 Nasal Cannula 2.0 28 04/18/19 20:00 Nasal Cannula 2.0 04/18/19 20:00 2.0 04/18/19 20:00 98.2 83 18 175/76 (109) 96 04/18/19 20:00 84 04/18/19 19:54 79 20 99 Nasal Cannula 2.0 28 04/18/19 19:54 78 20 99 04/18/19 19:54 99 Nasal Cannula 2.0 28 04/18/19 17:42 73 160/76 04/18/19 17:42 160/76 04/18/19 16:53 73 04/18/19 16:40 97.7 97 18 160/76 (104) 97 04/18/19 16:01 Nasal Cannula 2.0 04/18/19 15:23 98.3 74 18 172/136 94 Bi-pap 21 04/18/19 14:38 21 04/18/19 14:12 98.4 76 15 170/142 97 Room Air 04/18/19 13:16 98.2 78 17 198/68 96 Nasal Cannula 3.0 04/18/19 13:16 78 17 Room Air 04/18/19 12:55 98.4 75 28 188/68 (108) 86 Room Air Intake and Output 04/19/19 04/20/19 19:00 07:00 Intake Total 300 ml Balance 300 ml Intake Oral 300 ml # Bowel Movements 6 Labs Test 04/18/19 13:37 04/18/19 14:45 04/19/19 03:30 04/19/19 03:35 White Blood Count 3.7 K/UL (4.8-10.8) 3.5 K/UL (4.8-10.8) Red Blood Count 3.46 M/UL (4.20-5.40) 3.21 M/UL (4.20-5.40) Hemoglobin 10.4 G/DL (12.0-16.0) 9.9 G/DL (12.0-16.0) Hematocrit 32.4 % (37.0-47.0) 30.3 % (37.0-47.0) Mean Corpuscular Volume 94 FL (80-99) 94 FL (80-99) Mean Corpuscular Hemoglobin 30.1 PG (27.0-31.0) 30.9 PG (27.0-31.0) Mean Corpuscular Hemoglobin Concent 32.1 G/DL (32.0-36.0) 32.8 G/DL (32.0-36.0) Red Cell Distribution Width 14.7 % (11.6-14.8) 13.5 % (11.6-14.8) Platelet Count 199 K/UL (150-450) 188 K/UL (150-450) Mean Platelet Volume 5.6 FL (6.5-10.1) 6.6 FL (6.5-10.1) Neutrophils (%) (Auto) 69.8 % (45.0-75.0) 71.8 % (45.0-75.0) Lymphocytes (%) (Auto) 16.7 % (20.0-45.0) 13.9 % (20.0-45.0) Monocytes (%) (Auto) 7.7 % (1.0-10.0) 8.5 % (1.0-10.0) Eosinophils (%) (Auto) 4.7 % (0.0-3.0) 4.5 % (0.0-3.0) Basophils (%) (Auto) 1.1 % (0.0-2.0) 1.3 % (0.0-2.0) Sodium Level 144 MMOL/L (136-145) 141 MMOL/L (136-145) Potassium Level 3.0 MMOL/L (3.5-5.1) 3.7 MMOL/L (3.5-5.1) Chloride Level 99 MMOL/L (98-107) 99 MMOL/L (98-107) Carbon Dioxide Level 39 MMOL/L (21-32) 36 MMOL/L (21-32) Anion Gap 6 mmol/L (5-15) 6 mmol/L (5-15) Blood Urea Nitrogen 11 mg/dL (7-18) 20 mg/dL (7-18) Creatinine 2.6 MG/DL (0.55-1.30) 3.8 MG/DL (0.55-1.30) Estimat Glomerular Filtration Rate 18.2 mL/min (>60) 11.7 mL/min (>60) Glucose Level 126 MG/DL (74-106) 216 MG/DL (74-106) Calcium Level 8.4 MG/DL (8.5-10.1) 7.8 MG/DL (8.5-10.1) Total Bilirubin 0.8 MG/DL (0.2-1.0) 1.0 MG/DL (0.2-1.0) Aspartate Amino Transf (AST/SGOT) 16 U/L (15-37) 16 U/L (15-37) Alanine Aminotransferase (ALT/SGPT) 6 U/L (12-78) 7 U/L (12-78) Alkaline Phosphatase 105 U/L (46-116) 104 U/L (46-116) Total Creatine Kinase 154 U/L (26-308) 143 U/L (26-308) Creatine Kinase MB 1.0 NG/ML (0.0-3.6) Creatine Kinase MB Relative Index 0.6 Troponin I 0.030 ng/mL (0.000-0.056) 0.025 ng/mL (0.000-0.056) Total Protein 7.6 G/DL (6.4-8.2) 7.2 G/DL (6.4-8.2) Albumin 3.8 G/DL (3.4-5.0) 3.5 G/DL (3.4-5.0) Globulin 3.8 g/dL 3.7 g/dL Albumin/Globulin Ratio 1.0 (1.0-2.7) 0.9 (1.0-2.7) Arterial Blood pH 7.475 (7.350-7.450) Arterial Blood Partial Pressure CO2 53.0 mmHg (35.0-45.0) Arterial Blood Partial Pressure O2 54.3 mmHg (75.0-100.0) Arterial Blood HCO3 38.1 mmol/L (22.0-26.0) Arterial Blood Oxygen Saturation 87.9 % (95-100) Arterial Blood Base Excess 12.8 (-2-2) Faheem Test Positive Iron Level 33 ug/dL (50-175) Total Iron Binding Capacity 302 ug/dL (250-450) Percent Iron Saturation 11 % (15-50) Unsaturated Iron Binding 269 ug/dL (112-346) Hemoglobin A1c 7.1 % (4.3-6.0) Uric Acid 4.1 MG/DL (2.6-7.2) Phosphorus Level 2.9 MG/DL (2.5-4.9) Magnesium Level 1.9 MG/DL (1.8-2.4) Ferritin 638 NG/ML (8-388) Gamma Glutamyl Transpeptidase 56 U/L (5-85) C-Reactive Protein, Quantitative 1.4 mg/dL (0.00-0.90) Pro-B-Type Natriuretic Peptide > 71786 pg/mL (0-125) Triglycerides Level 124 MG/DL (30-150) Cholesterol Level 79 MG/DL (< 200) LDL Cholesterol 31 mg/dL (<100) HDL Cholesterol 35 MG/DL (40-60) Cholesterol/HDL Ratio 2.3 (3.3-4.4) Vitamin B12 Level 464 PG/ML (193-986) Folate 9.6 NG/ML (8.6-58.9) Thyroid Stimulating Hormone (TSH) 3.424 uiU/mL (0.358-3.740) Free Thyroxine 1.14 NG/DL (0.76-1.46) Free Triiodothyronine 2.0 pg/mL (2.3-4.2) Test 04/20/19 03:11 White Blood Count 3.1 K/UL (4.8-10.8) Red Blood Count 3.13 M/UL (4.20-5.40) Hemoglobin 9.6 G/DL (12.0-16.0) Hematocrit 29.3 % (37.0-47.0) Mean Corpuscular Volume 94 FL (80-99) Mean Corpuscular Hemoglobin 30.5 PG (27.0-31.0) Mean Corpuscular Hemoglobin Concent 32.6 G/DL (32.0-36.0) Red Cell Distribution Width 14.5 % (11.6-14.8) Platelet Count 174 K/UL (150-450) Mean Platelet Volume 6.2 FL (6.5-10.1) Neutrophils (%) (Auto) % (45.0-75.0) Lymphocytes (%) (Auto) % (20.0-45.0) Monocytes (%) (Auto) % (1.0-10.0) Eosinophils (%) (Auto) % (0.0-3.0) Basophils (%) (Auto) % (0.0-2.0) Sodium Level 141 MMOL/L (136-145) Potassium Level 3.6 MMOL/L (3.5-5.1) Chloride Level 100 MMOL/L (98-107) Carbon Dioxide Level 36 MMOL/L (21-32) Anion Gap 5 mmol/L (5-15) Blood Urea Nitrogen 34 mg/dL (7-18) Creatinine 5.0 MG/DL (0.55-1.30) Estimat Glomerular Filtration Rate 8.5 mL/min (>60) Glucose Level 51 MG/DL (74-106) Calcium Level 7.3 MG/DL (8.5-10.1) Phosphorus Level 4.0 MG/DL (2.5-4.9) Magnesium Level 2.0 MG/DL (1.8-2.4) Total Bilirubin 0.7 MG/DL (0.2-1.0) Aspartate Amino Transf (AST/SGOT) 13 U/L (15-37) Alanine Aminotransferase (ALT/SGPT) < 6 U/L (12-78) Alkaline Phosphatase 95 U/L (46-116) C-Reactive Protein, Quantitative 1.5 mg/dL (0.00-0.90) Total Protein 7.1 G/DL (6.4-8.2) Albumin 3.5 G/DL (3.4-5.0) Globulin 3.6 g/dL Albumin/Globulin Ratio 1.0 (1.0-2.7) Height (Feet): 4 Height (Inches): 11.00 Weight (Pounds): 169 Objective VITAL SIGNS: Reviewed. GENERAL: No distress. PULMONARY: Decreased breath sounds. ++ BIPAP CARDIOVASCULAR: Regular rate. No S3 or S4. ABDOMEN: Soft, nontender, and nondistended. EXTREMITIES: No cyanosis, swelling, or edema. ++ Left AVS Carl Daniels MD Apr 20, 2019 06:18
--- NOTE | 2019-04-20 07:10 | NUR ---
HAND-OFF: Report given to Cyndy [facility]. Pt remains stable.
[2019-04-20 08:00] VITALS: BP 151/81
--- NOTE | 2019-04-20 08:00 | NUR ---
NURSE NOTES: Received change of shift report from Eleuterio LITTLE. Pt is awake, alert, oriented x4, primarily Indonesian speaking, however able to comprehend basic Spanish. Denies pain. Pt is on 2L of oxygen via nasal cannula with 99% O2sat and diminished lung sounds. Tele monitor displays NSR with heart rate in the 70's. Temp 97.2F oral. Abdomen is large, round, soft, nontender to touch with hypoactive bowel sounds. Pt is ambulatory with steady gait; observed pt ambulate to/from restroom. Weak peripheral pulses are noted. Pt has peripheral IV access on right AC #20G, saline lock, patent/intact. Pt also has left upper arm AV shunt for hemodialysis with noted bruit/thrill. Skin is intact. Bed is locked with three side rails up, in lowest position and call light within easy reach. Will continue to monitor pt and follow plan of care per MD orders and protocol.
[2019-04-20] MEDS: Metoprolol Tartrate 50mg tab ORAL SCH ×2 (09:00→21:00)
[2019-04-20] MEDS: Lisinopril 20mg tab ORAL SCH ×2 (09:00→16:54)
[2019-04-20] MEDS: Sennosides 8.6mg tab ORAL SCH (10:01)
[2019-04-20] MEDS: Docusate 100mg cap ORAL SCH ×3 (10:01→16:54)
--- NOTE | 2019-04-20 10:01 | Infectious Diseases Prog Note ---
Assessment/Plan Assessment/Plan IMPRESSION: 1. Dyspnea, likely secondary to congestive hear failure. 2. Hypoxemic respiratory failure. 3. End-stage renal disease, on hemodialysis. 4. Diabetes mellitus. 5. Diastolic CHF. 6. Aortic stenosis. 7. Hypertension. 8. Anemia. 9. Leukopenia. RECOMMENDATIONS: 1. Continue off of antibiotic. 2. We will follow up the chest x-ray. 3. We will continue bronchodilators. Subjective ROS Limited/Unobtainable: Yes Constitutional: Reports: no symptoms Respiratory: Reports: productive cough Gastrointestinal/Abdominal: Reports: no symptoms Genitourinary: Reports: no symptoms Allergies: Coded Allergies: No Known Allergies (Unverified , 05/12/17) Objective Vital Signs Last 24 Hour Vital Signs Date Time Temp Pulse Resp B/P (MAP) Pulse Ox O2 Delivery O2 Flow Rate FiO2 04/20/19 07:40 90 04/20/19 07:18 99 Nasal Cannula 2.0 28 04/20/19 07:00 76 20 100 Nasal Cannula 2.0 28 04/20/19 06:50 72 20 97 04/20/19 04:00 Nasal Cannula 2.0 04/20/19 04:00 97.0 69 18 143/77 (99) 98 69 04/20/19 04:00 2.0 04/20/19 04:00 73 04/20/19 03:40 75 18 100 Nasal Cannula 2.0 28 70 18 99 04/20/19 01:00 84 14 98 Facial 30 04/20/19 00:00 2.0 04/20/19 00:00 Nasal Cannula 2.0 04/20/19 00:00 69 04/20/19 00:00 97.2 68 20 146/73 (97) 98 68 04/19/19 22:30 89 19 98 Facial 30 89 19 98 Bi-Pap 30 04/19/19 20:53 73 138/63 04/19/19 20:00 97.3 73 20 138/63 (88) 96 73 04/19/19 20:00 Nasal Cannula 2.0 04/19/19 20:00 75 04/19/19 20:00 99 Nasal Cannula 2.0 28 04/19/19 20:00 2.0 04/19/19 19:59 78 18 100 Nasal Cannula 2.0 28 73 18 99 04/19/19 18:33 149/76 04/19/19 16:00 Nasal Cannula 2.0 04/19/19 16:00 97.5 71 18 149/76 (100) 100 72 04/19/19 16:00 2.0 04/19/19 16:00 76 04/19/19 15:27 76 04/19/19 14:49 74 18 99 Nasal Cannula 2.0 28 04/19/19 14:39 76 18 96 Nasal Cannula 2.0 28 04/19/19 12:00 97.5 78 18 152/77 (102) 99 04/19/19 12:00 2.0 04/19/19 12:00 Nasal Cannula 2.0 04/19/19 11:54 76 04/19/19 11:54 76 04/19/19 11:21 72 19 99 Nasal Cannula 2.0 28 04/19/19 11:11 78 20 98 Nasal Cannula 2.0 28 Height (Feet): 4 Height (Inches): 11.00 Weight (Pounds): 167 General Appearance: no acute distress HEENT: mucous membranes moist Respiratory/Chest: decreased breath sounds Cardiovascular: normal rate Abdomen: soft, non tender Extremities: no edema Neurologic/Psychiatric: alert, oriented x 3, responsive Microbiology Date/Time Source Procedure Growth Status 04/18/19 15:45 Nasal Nares MRSA Culture - Final NO METHICILLIN RESISTANT STAPH AUREUS... Complete Laboratory Tests Test 04/20/19 03:11 White Blood Count 3.1 K/UL (4.8-10.8) L Red Blood Count 3.13 M/UL (4.20-5.40) L Hemoglobin 9.6 G/DL (12.0-16.0) L Hematocrit 29.3 % (37.0-47.0) L Mean Corpuscular Volume 94 FL (80-99) Mean Corpuscular Hemoglobin 30.5 PG (27.0-31.0) Mean Corpuscular Hemoglobin Concent 32.6 G/DL (32.0-36.0) Red Cell Distribution Width 14.5 % (11.6-14.8) Platelet Count 174 K/UL (150-450) Mean Platelet Volume 6.2 FL (6.5-10.1) L Neutrophils (%) (Auto) % (45.0-75.0) Lymphocytes (%) (Auto) % (20.0-45.0) Monocytes (%) (Auto) % (1.0-10.0) Eosinophils (%) (Auto) % (0.0-3.0) Basophils (%) (Auto) % (0.0-2.0) Sodium Level 141 MMOL/L (136-145) Potassium Level 3.6 MMOL/L (3.5-5.1) Chloride Level 100 MMOL/L (98-107) Carbon Dioxide Level 36 MMOL/L (21-32) H Anion Gap 5 mmol/L (5-15) Blood Urea Nitrogen 34 mg/dL (7-18) H Creatinine 5.0 MG/DL (0.55-1.30) H Estimat Glomerular Filtration Rate 8.5 mL/min (>60) Glucose Level 51 MG/DL (74-106) #L Calcium Level 7.3 MG/DL (8.5-10.1) L Phosphorus Level 4.0 MG/DL (2.5-4.9) Magnesium Level 2.0 MG/DL (1.8-2.4) Total Bilirubin 0.7 MG/DL (0.2-1.0) Aspartate Amino Transf (AST/SGOT) 13 U/L (15-37) L Alanine Aminotransferase (ALT/SGPT) < 6 U/L (12-78) L Alkaline Phosphatase 95 U/L (46-116) C-Reactive Protein, Quantitative 1.5 mg/dL (0.00-0.90) H Total Protein 7.1 G/DL (6.4-8.2) Albumin 3.5 G/DL (3.4-5.0) Globulin 3.6 g/dL Albumin/Globulin Ratio 1.0 (1.0-2.7) Current Medications Medications (Trade) Dose Ordered Sig/Toya Route PRN Reason Start Time Stop Time Status Last Admin Dose Admin Acetaminophen (Tylenol) 500 mg Q4H PRN ORAL Mild Pain/Temp > 100.5 04/18/19 15:45 05/18/19 15:44 04/19/19 12:20 Albuterol/ Ipratropium (Albuterol/ Ipratropium) 3 ml Q4HRT HHN 04/18/19 19:00 04/23/19 18:59 04/20/19 06:50 Amlodipine Besylate (Norvasc) 10 mg DAILY ORAL 04/19/19 09:00 05/19/19 08:59 04/19/19 08:54 Aspirin (ASA) 81 mg DAILY ORAL 04/19/19 13:37 05/19/19 13:36 04/19/19 14:32 Atorvastatin Calcium (Lipitor) 10 mg BEDTIME ORAL 04/19/19 21:00 05/18/19 20:59 04/19/19 20:52 Dextrose (Dextrose 50%) 25 ml Q30M PRN IV Hypoglycemia 04/18/19 15:45 05/18/19 15:44 Dextrose (Dextrose 50%) 50 ml Q30M PRN IV Hypoglycemia 04/18/19 15:45 05/18/19 15:44 Docusate Sodium (Colace) 100 mg TID ORAL 04/18/19 18:00 05/18/19 17:59 04/19/19 12:18 Epoetin Panchito (Epoetin Panchito(ESRD on dialysis)) 3,000 unit THU-THU-THU SUBQ 04/20/19 21:00 05/20/19 20:59 Folic Acid (Folate) 3 mg DAILY ORAL 04/19/19 09:00 05/19/19 08:59 04/19/19 08:53 Gabapentin (Neurontin) 300 mg Q8HR ORAL 04/18/19 17:00 05/18/19 16:59 04/20/19 06:02 Guaifenesin/ Dextromethorphan (Robitussin DM Syrup) 5 ml Q6H PRN ORAL For Cough 04/19/19 06:45 05/19/19 06:44 04/19/19 12:18 Heparin Sodium (Porcine) (Heparin 5000 units/ml) 5,000 units EVERY 12 HOURS SUBQ 04/18/19 21:00 05/18/19 20:59 04/19/19 20:56 Hydralazine HCl (Apresoline) 25 mg Q4H PRN ORAL prn bp over 160 syst 04/18/19 16:45 05/18/19 16:44 04/18/19 23:32 Insulin Aspart (NovoLOG) BEFORE MEALS AND HS SUBQ 04/18/19 16:30 05/18/19 16:29 04/19/19 20:58 Insulin Detemir (Levemir) 15 units BEDTIME SUBQ 04/19/19 21:00 05/19/19 20:59 04/19/19 20:57 Levothyroxine Sodium (Synthroid) 100 mcg DAILY@0630 ORAL 04/19/19 06:30 05/19/19 06:29 04/20/19 06:02 Lisinopril (Prinivil) 20 mg BID ORAL 04/18/19 18:00 05/18/19 17:59 04/19/19 18:33 Metoclopramide HCl (Reglan) 10 mg Q6H PRN IVP Nausea & Vomiting 04/18/19 17:00 05/18/19 16:59 Metoprolol Tartrate (Lopressor) 50 mg EVERY 12 HOURS ORAL 04/18/19 21:00 05/18/19 20:59 04/19/19 20:53 Pantoprazole (Protonix) 40 mg EVERY 12 HOURS ORAL 04/18/19 21:00 05/18/19 20:59 04/19/19 20:52 Sennosides (Senokot) 8.6 mg DAILY ORAL 04/19/19 09:00 05/19/19 08:59 04/19/19 08:54 Tramadol HCl (Ultram) 50 mg Q6H PRN ORAL pain 6 - 10 04/18/19 17:00 04/25/19 16:59 Kalin Briseno MD Apr 20, 2019 10:01
[2019-04-20] MEDS: Aspirin Baby 81mg ORAL SCH (10:02)
[2019-04-20] MEDS: Heparin 5000 units/ml inj SUBQ SCH ×2 (10:06→21:47)
--- NOTE | 2019-04-20 10:45 | Nephrology Progress Note ---
Assessment/Plan Problem List: (1) ESRD (end stage renal disease) (2) Respiratory distress (3) Anemia in chronic kidney disease (CKD) (4) Diabetic nephropathy with proteinuria (5) Hypertensive kidney disease Assessment ESRD Pulm EDema DM HTN Anemia Low B12 and Iron by history CAD . Plan BP meds- adjusted 2D Echo Ej Fx 50 % Pulm support per orders HD today + UF add levemir HS Subjective ROS Limited/Unobtainable: No Constitutional: Reports: malaise Objective Objective Last 24 Hour Vital Signs Date Time Temp Pulse Resp B/P (MAP) Pulse Ox O2 Delivery O2 Flow Rate FiO2 04/20/19 08:00 97.2 92 18 151/81 (104) 98 70 04/20/19 08:00 Nasal Cannula 2.0 04/20/19 08:00 2.0 04/20/19 07:40 90 04/20/19 07:18 99 Nasal Cannula 2.0 28 04/20/19 07:00 76 20 100 Nasal Cannula 2.0 28 04/20/19 06:50 72 20 97 04/20/19 04:00 Nasal Cannula 2.0 04/20/19 04:00 97.0 69 18 143/77 (99) 98 69 04/20/19 04:00 2.0 04/20/19 04:00 73 04/20/19 03:40 75 18 100 Nasal Cannula 2.0 28 70 18 99 04/20/19 01:00 84 14 98 Facial 30 04/20/19 00:00 2.0 04/20/19 00:00 Nasal Cannula 2.0 04/20/19 00:00 69 04/20/19 00:00 97.2 68 20 146/73 (97) 98 68 04/19/19 22:30 89 19 98 Facial 30 89 19 98 Bi-Pap 30 04/19/19 20:53 73 138/63 04/19/19 20:00 97.3 73 20 138/63 (88) 96 73 04/19/19 20:00 Nasal Cannula 2.0 04/19/19 20:00 75 04/19/19 20:00 99 Nasal Cannula 2.0 28 04/19/19 20:00 2.0 04/19/19 19:59 78 18 100 Nasal Cannula 2.0 28 73 18 99 04/19/19 18:33 149/76 04/19/19 16:00 Nasal Cannula 2.0 04/19/19 16:00 97.5 71 18 149/76 (100) 100 72 04/19/19 16:00 2.0 04/19/19 16:00 76 04/19/19 15:27 76 04/19/19 14:49 74 18 99 Nasal Cannula 2.0 28 04/19/19 14:39 76 18 96 Nasal Cannula 2.0 28 04/19/19 12:00 97.5 78 18 152/77 (102) 99 04/19/19 12:00 2.0 04/19/19 12:00 Nasal Cannula 2.0 04/19/19 11:54 76 04/19/19 11:54 76 04/19/19 11:21 72 19 99 Nasal Cannula 2.0 28 04/19/19 11:11 78 20 98 Nasal Cannula 2.0 28 Intake and Output 04/19/19 04/20/19 19:00 07:00 Intake Total 300 ml Balance 300 ml Intake Oral 300 ml # Bowel Movements 6 Laboratory Tests 04/20/19 03:11: White Blood Count 3.1L, Red Blood Count 3.13L, Hemoglobin 9.6L, Hematocrit 29.3L , Mean Corpuscular Volume 94, Mean Corpuscular Hemoglobin 30.5, Mean Corpuscular Hemoglobin Concent 32.6, Red Cell Distribution Width 14.5, Platelet Count 174, Mean Platelet Volume 6.2L, Neutrophils (%) (Auto) , Lymphocytes (%) ( Auto) , Monocytes (%) (Auto) , Eosinophils (%) (Auto) , Basophils (%) (Auto) , Sodium Level 141, Potassium Level 3.6, Chloride Level 100, Carbon Dioxide Level 36H, Anion Gap 5, Blood Urea Nitrogen 34H, Creatinine 5.0H, Estimat Glomerular Filtration Rate 8.5, Glucose Level 51#L, Calcium Level 7.3L, Phosphorus Level 4.0, Magnesium Level 2.0, Total Bilirubin 0.7, Aspartate Amino Transf (AST/SGOT ) 13L, Alanine Aminotransferase (ALT/SGPT) < 6L, Alkaline Phosphatase 95, C- Reactive Protein, Quantitative 1.5H, Total Protein 7.1, Albumin 3.5, Globulin 3.6, Albumin/Globulin Ratio 1.0 Height (Feet): 4 Height (Inches): 11.00 Weight (Pounds): 170 General Appearance: no apparent distress Cardiovascular: normal rate Respiratory/Chest: decreased breath sounds Abdomen: soft Francis Falk MD Apr 20, 2019 10:45
--- NOTE | 2019-04-20 11:22 | Diagnostic Imaging Report ---
Indication: Shortness of breath Technique: XRAY Chest 1v Comparison: 04/18/2019 Findings: Marked cardiomegaly is stable. Again atherosclerotic calcifications noted in the aorta. There is worsening aeration with increasing interstitial opacification/edema and worsening bilateral airspace opacities. No significant pleural effusion is identified radiographically. No evidence of pneumothorax. Osseous structures are stable. Impression: Worsening aeration suggesting worsening CHF/pulmonary edema. Superimposed infection needs to be excluded clinically. Follow-up recommended.
[2019-04-20 12:00] VITALS: BP 150/82
--- NOTE | 2019-04-20 12:00 | NUR ---
NURSE NOTES: Pt is resting with family (daughter) at bedside. VS stable. Pt remains afebrile. Observed pt ambulate to/from restroom. Pt had BM x1, soft/formed/brown. Pt is now back in bed, watching TV. Denies any pain or discomfort at this time.
--- NOTE | 2019-04-20 12:43 | General Progress Note ---
Assessment/Plan Problem List: (1) Pulmonary congestion ICD Codes: R09.89 - Other specified symptoms and signs involving the circulatory and respiratory systems SNOMED: 64747724 (2) Pneumonia ICD Codes: J18.9 - Pneumonia, unspecified organism SNOMED: 796710878 (3) Renal failure ICD Codes: N19 - Unspecified kidney failure SNOMED: 78559889 (4) ESRD (end stage renal disease) ICD Codes: N18.6 - End stage renal disease SNOMED: 11364539 (5) Dyspnea ICD Codes: R06.00 - Dyspnea, unspecified SNOMED: 273357675 (6) Anemia in chronic kidney disease (CKD) ICD Codes: N18.9 - Chronic kidney disease, unspecified; D63.1 - Anemia in chronic kidney disease SNOMED: 994438405 Status: progressing Assessment/Plan: clinically improving reviewed chart and labs- pulmonary congestion r/o pna improved dyspnea esrd on hd needs more diaylsis Subjective ROS Limited/Unobtainable: Yes Allergies: Coded Allergies: No Known Allergies (Unverified , 05/12/17) Objective Last 24 Hour Vital Signs Date Time Temp Pulse Resp B/P (MAP) Pulse Ox O2 Delivery O2 Flow Rate FiO2 04/20/19 08:00 97.2 92 18 151/81 (104) 98 70 04/20/19 08:00 Nasal Cannula 2.0 04/20/19 08:00 2.0 04/20/19 07:40 90 04/20/19 07:18 99 Nasal Cannula 2.0 28 04/20/19 07:00 76 20 100 Nasal Cannula 2.0 28 04/20/19 06:50 72 20 97 04/20/19 04:00 Nasal Cannula 2.0 04/20/19 04:00 97.0 69 18 143/77 (99) 98 69 04/20/19 04:00 2.0 04/20/19 04:00 73 04/20/19 03:40 75 18 100 Nasal Cannula 2.0 28 70 18 99 04/20/19 01:00 84 14 98 Facial 30 04/20/19 00:00 2.0 04/20/19 00:00 Nasal Cannula 2.0 04/20/19 00:00 69 04/20/19 00:00 97.2 68 20 146/73 (97) 98 68 04/19/19 22:30 89 19 98 Facial 30 89 19 98 Bi-Pap 30 04/19/19 20:53 73 138/63 04/19/19 20:00 97.3 73 20 138/63 (88) 96 73 04/19/19 20:00 Nasal Cannula 2.0 04/19/19 20:00 75 04/19/19 20:00 99 Nasal Cannula 2.0 28 04/19/19 20:00 2.0 04/19/19 19:59 78 18 100 Nasal Cannula 2.0 28 73 18 99 04/19/19 18:33 149/76 04/19/19 16:00 Nasal Cannula 2.0 04/19/19 16:00 97.5 71 18 149/76 (100) 100 72 04/19/19 16:00 2.0 04/19/19 16:00 76 04/19/19 15:27 76 04/19/19 14:49 74 18 99 Nasal Cannula 2.0 28 04/19/19 14:39 76 18 96 Nasal Cannula 2.0 28 Intake and Output 04/19/19 04/20/19 19:00 07:00 Intake Total 300 ml Balance 300 ml Intake Oral 300 ml # Bowel Movements 6 Laboratory Tests 04/20/19 03:11: White Blood Count 3.1L, Red Blood Count 3.13L, Hemoglobin 9.6L, Hematocrit 29.3L , Mean Corpuscular Volume 94, Mean Corpuscular Hemoglobin 30.5, Mean Corpuscular Hemoglobin Concent 32.6, Red Cell Distribution Width 14.5, Platelet Count 174, Mean Platelet Volume 6.2L, Neutrophils (%) (Auto) , Lymphocytes (%) ( Auto) , Monocytes (%) (Auto) , Eosinophils (%) (Auto) , Basophils (%) (Auto) , Sodium Level 141, Potassium Level 3.6, Chloride Level 100, Carbon Dioxide Level 36H, Anion Gap 5, Blood Urea Nitrogen 34H, Creatinine 5.0H, Estimat Glomerular Filtration Rate 8.5, Glucose Level 51#L, Calcium Level 7.3L, Phosphorus Level 4.0, Magnesium Level 2.0, Total Bilirubin 0.7, Aspartate Amino Transf (AST/SGOT ) 13L, Alanine Aminotransferase (ALT/SGPT) < 6L, Alkaline Phosphatase 95, C- Reactive Protein, Quantitative 1.5H, Total Protein 7.1, Albumin 3.5, Globulin 3.6, Albumin/Globulin Ratio 1.0 Height (Feet): 4 Height (Inches): 11.00 Weight (Pounds): 170 Neck: supple Cardiovascular: normal rate Respiratory/Chest: lungs clear Abdomen: soft Makenna Daniel MD Apr 20, 2019 12:43
--- NOTE | 2019-04-20 14:30 | NUR ---
NURSE NOTES: [facility] Nephrology was contacted again, spoke with Charlee at the call center. Per Charlee, message will be relayed to the covering/application operations engineer dialysis nurse for pt's scheduled bedside dialysis treatment today. Charge nurse and pt aware.
[2019-04-20 16:00] VITALS: BP 148/80
--- NOTE | 2019-04-20 17:00 | NUR ---
NURSE NOTES: Pt was cleaned, gown/bed linens were changed. VS stable.
--- NOTE | 2019-04-20 17:28 | Pulmonology Progress Note ---
Assessment/Plan Assessment/Plan Pulmonary Progress Note HPI Patient is a 69 year old woman presenting with shortness of breath/cough ongoing for several days, patient has CKD, HTN, DM, CAD, Asthma, receives dialysis on Thursday and Fridays, had her dialysis this morning Otherwise he denies any fever, no nausea, vomiting or diarrhea, has fatigue and malaise, no chest pain. Allergies: No Known Allergies Past Medical History: CKD on HD, HTN, DM, Asthma, previous CAD All Other Systems: negative except mentioned in HPI Physical Exam Vital Signs Noted General Appearance: no distress on BiPAP Head: normocephalic, atraumatic Eyes: bilateral eye PERRL, bilateral eye EOMI ENT: moist mm Neck: no LN Respiratory: no retraction, no accessory muscle use, CTAB Cardiovascular: normal peripheral pulses, regular rate, rhythm, no JVD, no murmur, normal hS1/HS2 Gastrointestinal: normal bowel sounds, non tender, soft, no mass, no organomegaly, non-distended, no guarding, no hernia, no pulsatile mass, no rebound Genitourinary: no CVA tenderness Musculoskeletal: normal inspection - AV left arm Neurologic: oriented x3, responsive, server systems administrator III-XII nml as tested, motor strength/ tone normal, sensory intact Skin: no rash, no edema Impression: Respiratory distress Pulmonary congestion on CXR ESRD (end stage renal disease) on HD Hypertension Diabetes CAD Plan: BiPAP 15/5 HD per Renal O2 PRN HHN PRN Monitor labs PPX ISS VQ low probability Labs Test 04/18/19 13:37 White Blood Count 3.7 K/UL (4.8-10.8) Red Blood Count 3.46 M/UL (4.20-5.40) Hemoglobin 10.4 G/DL (12.0-16.0) Hematocrit 32.4 % (37.0-47.0) Mean Corpuscular Volume 94 FL (80-99) Mean Corpuscular Hemoglobin 30.1 PG (27.0-31.0) Mean Corpuscular Hemoglobin Concent 32.1 G/DL (32.0-36.0) Red Cell Distribution Width 14.7 % (11.6-14.8) Platelet Count 199 K/UL (150-450) Mean Platelet Volume 5.6 FL (6.5-10.1) Neutrophils (%) (Auto) 69.8 % (45.0-75.0) Lymphocytes (%) (Auto) 16.7 % (20.0-45.0) Monocytes (%) (Auto) 7.7 % (1.0-10.0) Eosinophils (%) (Auto) 4.7 % (0.0-3.0) Basophils (%) (Auto) 1.1 % (0.0-2.0) Sodium Level 144 MMOL/L (136-145) Potassium Level 3.0 MMOL/L (3.5-5.1) Chloride Level 99 MMOL/L (98-107) Carbon Dioxide Level 39 MMOL/L (21-32) Anion Gap 6 mmol/L (5-15) Blood Urea Nitrogen 11 mg/dL (7-18) Creatinine 2.6 MG/DL (0.55-1.30) Estimat Glomerular Filtration Rate 18.2 mL/min (>60) Glucose Level 126 MG/DL (74-106) Calcium Level 8.4 MG/DL (8.5-10.1) Troponin I 0.030 ng/mL (0.000-0.056) Chest X-Ray: no consolidation, no pneumothorax, other - pulmonary congestion VQ low probability Subjective ROS Limited/Unobtainable: No Allergies: Coded Allergies: No Known Allergies (Unverified , 05/12/17) Objective Last 24 Hour Vital Signs Date Time Temp Pulse Resp B/P (MAP) Pulse Ox O2 Delivery O2 Flow Rate FiO2 04/20/19 15:56 84 20 100 Nasal Cannula 2.0 28 04/20/19 15:46 82 20 95 04/20/19 12:00 95 04/20/19 12:00 Nasal Cannula 2.0 04/20/19 12:00 98.0 90 18 150/82 (104) 98 90 04/20/19 12:00 2.0 04/20/19 11:48 81 20 100 Nasal Cannula 2.0 28 04/20/19 11:38 78 18 96 04/20/19 08:00 97.2 70 18 151/81 (104) 98 70 04/20/19 08:00 Nasal Cannula 2.0 04/20/19 08:00 2.0 04/20/19 07:40 90 04/20/19 07:18 99 Nasal Cannula 2.0 28 04/20/19 07:00 76 20 100 Nasal Cannula 2.0 28 04/20/19 06:50 72 20 97 04/20/19 04:00 Nasal Cannula 2.0 04/20/19 04:00 97.0 69 18 143/77 (99) 98 69 04/20/19 04:00 2.0 04/20/19 04:00 73 04/20/19 03:40 75 18 100 Nasal Cannula 2.0 28 70 18 99 04/20/19 01:00 84 14 98 Facial 30 04/20/19 00:00 2.0 04/20/19 00:00 Nasal Cannula 2.0 04/20/19 00:00 69 04/20/19 00:00 97.2 68 20 146/73 (97) 98 68 04/19/19 22:30 89 19 98 Facial 30 89 19 98 Bi-Pap 30 04/19/19 20:53 73 138/63 04/19/19 20:00 97.3 73 20 138/63 (88) 96 73 04/19/19 20:00 Nasal Cannula 2.0 04/19/19 20:00 75 04/19/19 20:00 99 Nasal Cannula 2.0 28 04/19/19 20:00 2.0 04/19/19 19:59 78 18 100 Nasal Cannula 2.0 28 73 18 99 04/19/19 18:33 149/76 Intake and Output 04/19/19 04/20/19 19:00 07:00 Intake Total 300 ml Balance 300 ml Intake Oral 300 ml # Bowel Movements 6 Microbiology Date/Time Source Procedure Growth Status 04/18/19 15:45 Nasal Nares MRSA Culture - Final NO METHICILLIN RESISTANT STAPH AUREUS... Complete Laboratory Tests 04/20/19 03:11: White Blood Count 3.1L, Red Blood Count 3.13L, Hemoglobin 9.6L, Hematocrit 29.3L , Mean Corpuscular Volume 94, Mean Corpuscular Hemoglobin 30.5, Mean Corpuscular Hemoglobin Concent 32.6, Red Cell Distribution Width 14.5, Platelet Count 174, Mean Platelet Volume 6.2L, Neutrophils (%) (Auto) , Lymphocytes (%) ( Auto) , Monocytes (%) (Auto) , Eosinophils (%) (Auto) , Basophils (%) (Auto) , Sodium Level 141, Potassium Level 3.6, Chloride Level 100, Carbon Dioxide Level 36H, Anion Gap 5, Blood Urea Nitrogen 34H, Creatinine 5.0H, Estimat Glomerular Filtration Rate 8.5, Glucose Level 51#L, Calcium Level 7.3L, Phosphorus Level 4.0, Magnesium Level 2.0, Total Bilirubin 0.7, Aspartate Amino Transf (AST/SGOT ) 13L, Alanine Aminotransferase (ALT/SGPT) < 6L, Alkaline Phosphatase 95, C- Reactive Protein, Quantitative 1.5H, Total Protein 7.1, Albumin 3.5, Globulin 3.6, Albumin/Globulin Ratio 1.0 Current Medications Medications (Trade) Dose Ordered Sig/Toya Route PRN Reason Start Time Stop Time Status Last Admin Dose Admin Acetaminophen (Tylenol) 500 mg Q4H PRN ORAL Mild Pain/Temp > 100.5 04/18/19 15:45 05/18/19 15:44 04/19/19 12:20 Albuterol/ Ipratropium (Albuterol/ Ipratropium) 3 ml Q4HRT HHN 04/18/19 19:00 04/23/19 18:59 04/20/19 15:46 Amlodipine Besylate (Norvasc) 10 mg DAILY ORAL 04/19/19 09:00 05/19/19 08:59 04/19/19 08:54 Aspirin (ASA) 81 mg DAILY ORAL 04/19/19 13:37 05/19/19 13:36 04/20/19 10:02 Atorvastatin Calcium (Lipitor) 10 mg BEDTIME ORAL 04/19/19 21:00 05/18/19 20:59 04/19/19 20:52 Dextrose (Dextrose 50%) 25 ml Q30M PRN IV Hypoglycemia 04/18/19 15:45 05/18/19 15:44 Dextrose (Dextrose 50%) 50 ml Q30M PRN IV Hypoglycemia 04/18/19 15:45 05/18/19 15:44 Docusate Sodium (Colace) 100 mg TID ORAL 04/18/19 18:00 05/18/19 17:59 04/20/19 13:38 Epoetin Panchito (Epoetin Panchito(ESRD on dialysis)) 3,000 unit THU-THU-THU SUBQ 04/20/19 21:00 05/20/19 20:59 Folic Acid (Folate) 3 mg DAILY ORAL 04/19/19 09:00 05/19/19 08:59 04/20/19 10:01 Gabapentin (Neurontin) 300 mg Q8HR ORAL 04/18/19 17:00 05/18/19 16:59 04/20/19 13:38 Guaifenesin/ Dextromethorphan (Robitussin DM Syrup) 5 ml Q6H PRN ORAL For Cough 04/19/19 06:45 05/19/19 06:44 04/19/19 12:18 Heparin Sodium (Porcine) (Heparin 5000 units/ml) 5,000 units EVERY 12 HOURS SUBQ 04/18/19 21:00 05/18/19 20:59 04/20/19 10:06 Hydralazine HCl (Apresoline) 25 mg Q4H PRN ORAL prn bp over 160 syst 04/18/19 16:45 05/18/19 16:44 04/18/19 23:32 Insulin Aspart (NovoLOG) BEFORE MEALS AND HS SUBQ 04/18/19 16:30 05/18/19 16:29 04/20/19 16:58 Insulin Detemir (Levemir) 10 units BEDTIME SUBQ 04/20/19 21:00 05/19/19 20:59 Levothyroxine Sodium (Synthroid) 100 mcg DAILY@0630 ORAL 04/19/19 06:30 05/19/19 06:29 04/20/19 06:02 Lisinopril (Prinivil) 20 mg BID ORAL 04/18/19 18:00 05/18/19 17:59 04/19/19 18:33 Metoclopramide HCl (Reglan) 10 mg Q6H PRN IVP Nausea & Vomiting 04/18/19 17:00 05/18/19 16:59 Metoprolol Tartrate (Lopressor) 50 mg EVERY 12 HOURS ORAL 04/18/19 21:00 05/18/19 20:59 04/19/19 20:53 Pantoprazole (Protonix) 40 mg EVERY 12 HOURS ORAL 04/18/19 21:00 05/18/19 20:59 04/20/19 10:01 Sennosides (Senokot) 8.6 mg DAILY ORAL 04/19/19 09:00 05/19/19 08:59 04/20/19 10:01 Tramadol HCl (Ultram) 50 mg Q6H PRN ORAL pain 6 - 10 04/18/19 17:00 04/25/19 16:59 Brandon Herbert MD Apr 20, 2019 17:28
--- NOTE | 2019-04-20 18:30 | NUR ---
NURSE NOTES: Per dialysis nurse/Carl, this pt will be dialyzed later tonight by Phong LITTLE/dialysis nurse. Pt and charge nurse aware.
--- NOTE | 2019-04-20 19:00 | NUR ---
NURSE NOTES: Pt's peripheral IV access came out while the pt was using the restroom. Will endorse to mechanic foreman nurse.
--- NOTE | 2019-04-20 19:16 | NUR ---
HAND-OFF: Report given to Eleuterio LITTLE. Pt is stable. Endorsed plan of care.
--- NOTE | 2019-04-20 19:20 | NUR ---
NURSE NOTES: Pt report received from Cyndy NCU BRAKE DRUM LATHE OPERATOR. pt remains stable. pt is alert and oriented times 4 and is able to respond to commands. pt computer repair engineer shows NSR, no abnormalities noted. pt is on 2 L NC and able to sat at 99%, no resp distress noted. pt bed is low, locked, armed, call light within reach, bed rails up times 3. will continue plan of care.
--- NOTE | 2019-04-20 19:25 | NUR ---
NURSE NOTES: Phong lead burner apprentice from [facility] called and stated he will not be able to make pt dialysis today. will call [facility] to confirm replacement lead burner apprentice. pt remains stable.
--- NOTE | 2019-04-20 19:37 | NUR ---
NURSE NOTES: Called [facility] and spoke with Domi the it sales representative for dialysis. she stated that Phong aluminum pourer will still work with pt for dialysis. will report to rn charge stella.
[2019-04-20 20:00] VITALS: BP 157/94
[2019-04-20] MEDS ORDERED: ZETIA10 MG ORAL (20:40)
[2019-04-20] MEDS ORDERED: Levemir Flexpen SUBQ SCH (21:00)
[2019-04-20] MEDS ORDERED: Epoetin Alfa-EPBX(ESRD on dialysis)3000 units/ml vial SUBQ SCH (21:00)
--- NOTE | 2019-04-20 21:32 | NUR ---
NURSE NOTES: Called Maryj[facility] Pharmacist, she stated it is ok to give all 2100 meds right now. Additionally, Maryjane Pharmacist stated to hold Lopressor. Pharmacist Maryjane is aware of dialysis scheduled today.
[2019-04-20] MEDS: Acetaminophen 500mg (ES) tab ORAL PRN (21:50)
--- NOTE | 2019-04-20 22:16 | NUR ---
NURSE NOTES: Per MD Falk order, transfer Pt to Med Surg after Dialysis. Charge nurse Jacki afrrar.
--- NOTE | 2019-04-20 23:31 | NUR ---
NURSE NOTES: Called [facility], spoke to yuki who will relay message to Phong the inside sales recruiter. the message to confirm dialysis for today or to have it done as soon as possible. charge lpn raquel farrar.
[2019-04-21] VITALS (7 sets, daily range): BP systolic 127–164; BP diastolic 59–87
[2019-04-21] MEDS: HydrALAZINE 25mg tab ORAL PRN (00:34)
[2019-04-21] MEDS: Albuterol/Ipratropium 3ml neb HHN SCH ×6 (02:20→22:31)
[2019-04-21 05:00] LABS: HEMATOCRIT 28.4 % (37.0-47.0); HEMOGLOBIN 9.2 G/DL (12.0-16.0); MEAN CORPUSCULAR VOLUME 94 FL (80-99); PLATELET COUNT 170 K/UL (150-450); RED BLOOD COUNT 3.02 M/UL (4.20-5.40); WHITE BLOOD COUNT 3.4 K/UL (4.8-10.8)
[2019-04-21] MEDS: NovoLOG Insulin Flexpen SUBQ SCH ×4 (05:54→20:39)
[2019-04-21 06:18] LABS: ALANINE AMINOTRANSFERASE 6 U/L (12-78); ALBUMIN 3.5 G/DL (3.4-5.0); ALBUMIN/GLOBULIN RATIO 0.9 (1.0-2.7); ALKALINE PHOSPHATASE 124 U/L (46-116); ANION GAP 8 mmol/L (5-15); ASPARTATE AMINO TRANSFERASE 13 U/L (15-37); BILIRUBIN,TOTAL 0.6 MG/DL (0.2-1.0); BLOOD UREA NITROGEN 46 mg/dL (7-18); CALCIUM 7.4 MG/DL (8.5-10.1); CARBON DIOXIDE 32 MMOL/L (21-32); CHLORIDE 98 MMOL/L (98-107); CREATININE 5.8 MG/DL (0.55-1.30); PHOSPHORUS 4.6 MG/DL (2.5-4.9); POTASSIUM 3.6 MMOL/L (3.5-5.1); SODIUM 138 MMOL/L (136-145)
--- NOTE | 2019-04-21 07:00 | NUR ---
HAND-OFF: Report given to Malia Hoskins SDU RN. Pt remains stable.
--- NOTE | 2019-04-21 07:20 | NUR ---
NURSE NOTES: Report received from Eleuterio Agrawal RN.Pt awake,alert oriented sitting up on side of bed eating breakfast,no resp distress noted denies any c/o pain or discomfort S-R on the monitor,for HD today SHAMEKA AV shunt intact with PIV hep lock to RH,intact skin warm and dry ,SR up x2,call lowry within reach ,bed lock in lowest position,will continue with plans of care.
--- NOTE | 2019-04-21 08:30 | NUR ---
NURSE NOTES: HD Nurse at bedside,with ongoing Hemodialysis,PO meds due at 0900 on hold until done.
--- NOTE | 2019-04-21 09:37 | Hematology/Onc Progress Note ---
Assessment/Plan Assessment/Plan Assessment/Plan 1. Anemia due to underlying chronic disease. Have reviewed prior workup, ferritin is >1000, though percent saturation Tsat <30, but not recommended for further iron --> Continue to closely monitor. --> Transfuse if hgb <7 --> ferritin is >600, therefore hold off oniron --> started epogen, has been started with hd --> hgb trend 9.6 --> monitor for gi bleed 2. Leukopenia likely reactive process v infection --> hepatitis and hiv prior negative --> neutropenic precautions if ANC <1500 --> trending stable --> imaging reviewed and no hsm / cirrhosis noted prior --> wbc trend 3.1-->3.4 3. End-stage renal disease, on hemodialysis three times a week. --> renal consulted --> hd for 04/20 4. History of coronary artery disease. --> cards reviewed --> with fluid overload may need diuresis 5. History of anemia due to low B12, low iron. --> b12 is currently within normal limits --> reobtain q6mo 6. Dizziness and unsteady gait. 7. DVt ppsx with heparin sq Greatly appreciate consultation. Subjective Cardiovascular: Denies: no symptoms, chest pain, edema, irregular heart rate, lightheadedness, palpitations, syncope, other Respiratory: Denies: no symptoms, cough, shortness of breath, SOB with excertion, SOB at rest, sputum, wheezing, other Gastrointestinal/Abdominal: Denies: no symptoms, abdomen distended, abdominal pain, black stools, tarry stools, blood in stool, constipated, diarrhea, difficulty swallowing, nausea, poor appetite, poor fluid intake, rectal bleeding , vomiting, other Genitourinary: Denies: no symptoms, burning, discharge, frequency, flank pain, hematuria, incontinence, pain, urgency, other Neurologic/Psychiatric: Denies: no symptoms, anxiety, depressed, emotional problems, headache, numbness, paresthesia, pre-existing deficit, seizure, tingling, tremors, weakness, other Endocrine: Denies: no symptoms, excessive sweating, flushing, intolerance to cold, intolerance to heat, increased hunger, increased thirst, increased urine, unexplained weight gain, unexplained weight loss, other Allergies: Coded Allergies: No Known Allergies (Unverified , 05/12/17) Subjective 04/20: bs was low o/n, 54 dw rn, and given oj, labs reviewed 04/21: getting hd, no events, no bleeding, no f/c Objective Objective Current Medications Medications (Trade) Dose Ordered Sig/Toya Route PRN Reason Start Time Stop Time Status Last Admin Dose Admin Acetaminophen (Tylenol) 500 mg Q4H PRN ORAL Mild Pain/Temp > 100.5 04/18/19 15:45 05/18/19 15:44 04/20/19 21:50 Albuterol/ Ipratropium (Albuterol/ Ipratropium) 3 ml Q4HRT HHN 04/18/19 19:00 04/23/19 18:59 04/21/19 07:59 Amlodipine Besylate (Norvasc) 10 mg DAILY ORAL 04/19/19 09:00 05/19/19 08:59 04/19/19 08:54 Aspirin (ASA) 81 mg DAILY ORAL 04/19/19 13:37 05/19/19 13:36 04/20/19 10:02 Atorvastatin Calcium (Lipitor) 10 mg BEDTIME ORAL 04/19/19 21:00 05/18/19 20:59 04/20/19 21:42 Dextrose (Dextrose 50%) 25 ml Q30M PRN IV Hypoglycemia 04/18/19 15:45 05/18/19 15:44 Dextrose (Dextrose 50%) 50 ml Q30M PRN IV Hypoglycemia 04/18/19 15:45 05/18/19 15:44 Docusate Sodium (Colace) 100 mg TID ORAL 04/18/19 18:00 05/18/19 17:59 04/20/19 13:38 Epoetin Panchito (Epoetin Panchito(ESRD on dialysis)) 3,000 unit THU-THU-THU SUBQ 04/20/19 21:00 05/20/19 20:59 04/20/19 21:43 Folic Acid (Folate) 3 mg DAILY ORAL 04/19/19 09:00 05/19/19 08:59 04/20/19 10:01 Gabapentin (Neurontin) 300 mg Q8HR ORAL 04/18/19 17:00 05/18/19 16:59 04/21/19 05:52 Guaifenesin/ Dextromethorphan (Robitussin DM Syrup) 5 ml Q6H PRN ORAL For Cough 04/19/19 06:45 05/19/19 06:44 04/19/19 12:18 Heparin Sodium (Porcine) (Heparin 5000 units/ml) 5,000 units EVERY 12 HOURS SUBQ 04/18/19 21:00 05/18/19 20:59 04/20/19 21:47 Hydralazine HCl (Apresoline) 25 mg Q4H PRN ORAL prn bp over 160 syst 04/18/19 16:45 05/18/19 16:44 04/21/19 00:34 Insulin Aspart (NovoLOG) BEFORE MEALS AND HS SUBQ 04/18/19 16:30 05/18/19 16:29 04/21/19 05:54 Insulin Detemir (Levemir) 10 units BEDTIME SUBQ 04/20/19 21:00 05/19/19 20:59 04/20/19 21:57 Levothyroxine Sodium (Synthroid) 100 mcg DAILY@0630 ORAL 04/19/19 06:30 05/19/19 06:29 04/21/19 05:52 Lisinopril (Prinivil) 20 mg BID ORAL 04/18/19 18:00 05/18/19 17:59 04/19/19 18:33 Metoclopramide HCl (Reglan) 10 mg Q6H PRN IVP Nausea & Vomiting 04/18/19 17:00 05/18/19 16:59 Metoprolol Tartrate (Lopressor) 50 mg EVERY 12 HOURS ORAL 04/18/19 21:00 05/18/19 20:59 04/19/19 20:53 Pantoprazole (Protonix) 40 mg EVERY 12 HOURS ORAL 04/18/19 21:00 05/18/19 20:59 04/20/19 21:41 Sennosides (Senokot) 8.6 mg DAILY ORAL 04/19/19 09:00 05/19/19 08:59 04/20/19 10:01 Tramadol HCl (Ultram) 50 mg Q6H PRN ORAL pain 6 - 10 04/18/19 17:00 04/25/19 16:59 Last 24 Hour Vital Signs Date Time Temp Pulse Resp B/P (MAP) Pulse Ox O2 Delivery O2 Flow Rate FiO2 04/21/19 07:59 97 Nasal Cannula 2.0 28 04/21/19 07:59 79 18 99 Nasal Cannula 2.0 28 77 18 97 04/21/19 04:00 Nasal Cannula 2.0 04/21/19 04:00 97.9 77 20 150/70 (96) 100 77 04/21/19 04:00 2.0 04/21/19 03:23 81 04/21/19 02:46 83 19 97 Facial 30 04/21/19 02:20 77 18 99 Bi-Pap 30 75 18 97 04/21/19 00:37 87 18 99 Facial 30 04/21/19 00:34 160/70 04/21/19 00:00 Bi-pap 04/21/19 00:00 30 04/21/19 00:00 97.5 84 20 160/70 (100) 98 84 04/21/19 00:00 86 04/20/19 23:17 89 23 98 Facial 30 04/20/19 23:03 80 18 99 Nasal Cannula 2.0 28 77 18 98 04/20/19 21:00 81 157/94 04/20/19 20:00 82 04/20/19 20:00 97.7 81 20 157/94 (115) 100 82 04/20/19 20:00 2.0 04/20/19 20:00 Nasal Cannula 2.0 04/20/19 19:13 79 18 100 Nasal Cannula 2.0 28 82 18 99 04/20/19 19:12 99 Nasal Cannula 2.0 28 04/20/19 16:00 98.2 82 18 148/80 (102) 98 82 04/20/19 16:00 2.0 04/20/19 16:00 Nasal Cannula 2.0 04/20/19 16:00 90 04/20/19 15:56 84 20 100 Nasal Cannula 2.0 28 04/20/19 15:46 82 20 95 04/20/19 12:00 95 04/20/19 12:00 Nasal Cannula 2.0 04/20/19 12:00 98.0 90 18 150/82 (104) 98 90 04/20/19 12:00 2.0 04/20/19 11:48 81 20 100 Nasal Cannula 2.0 28 04/20/19 11:38 78 18 96 04/20/19 08:00 97.2 70 18 151/81 (104) 98 70 04/20/19 08:00 Nasal Cannula 2.0 04/20/19 08:00 2.0 04/20/19 07:40 90 04/20/19 07:18 99 Nasal Cannula 2.0 28 04/20/19 07:00 76 20 100 Nasal Cannula 2.0 28 04/20/19 06:50 72 20 97 04/20/19 04:00 Nasal Cannula 2.0 04/20/19 04:00 97.0 69 18 143/77 (99) 98 69 04/20/19 04:00 2.0 04/20/19 04:00 73 04/20/19 03:40 75 18 100 Nasal Cannula 2.0 28 70 18 99 04/20/19 01:00 84 14 98 Facial 30 04/20/19 00:00 2.0 04/20/19 00:00 Nasal Cannula 2.0 04/20/19 00:00 69 04/20/19 00:00 97.2 68 20 146/73 (97) 98 68 04/19/19 22:30 89 19 98 Facial 30 89 19 98 Bi-Pap 30 04/19/19 20:53 73 138/63 04/19/19 20:00 97.3 73 20 138/63 (88) 96 73 04/19/19 20:00 Nasal Cannula 2.0 04/19/19 20:00 75 04/19/19 20:00 99 Nasal Cannula 2.0 28 04/19/19 20:00 2.0 04/19/19 19:59 78 18 100 Nasal Cannula 2.0 28 73 18 99 04/19/19 18:33 149/76 04/19/19 16:00 Nasal Cannula 2.0 04/19/19 16:00 97.5 71 18 149/76 (100) 100 72 04/19/19 16:00 2.0 04/19/19 16:00 76 04/19/19 15:27 76 04/19/19 14:49 74 18 99 Nasal Cannula 2.0 28 04/19/19 14:39 76 18 96 Nasal Cannula 2.0 28 04/19/19 12:00 97.5 78 18 152/77 (102) 99 04/19/19 12:00 2.0 04/19/19 12:00 Nasal Cannula 2.0 04/19/19 11:54 76 04/19/19 11:54 76 04/19/19 11:21 72 19 99 Nasal Cannula 2.0 28 04/19/19 11:11 78 20 98 Nasal Cannula 2.0 28 Intake and Output 04/20/19 04/21/19 19:00 07:00 Intake Total 250 ml Balance 250 ml Intake Oral 250 ml # Voids 1 # Bowel Movements 2 Labs Test 04/18/19 13:37 04/18/19 14:45 04/19/19 03:30 04/19/19 03:35 White Blood Count 3.7 K/UL (4.8-10.8) 3.5 K/UL (4.8-10.8) Red Blood Count 3.46 M/UL (4.20-5.40) 3.21 M/UL (4.20-5.40) Hemoglobin 10.4 G/DL (12.0-16.0) 9.9 G/DL (12.0-16.0) Hematocrit 32.4 % (37.0-47.0) 30.3 % (37.0-47.0) Mean Corpuscular Volume 94 FL (80-99) 94 FL (80-99) Mean Corpuscular Hemoglobin 30.1 PG (27.0-31.0) 30.9 PG (27.0-31.0) Mean Corpuscular Hemoglobin Concent 32.1 G/DL (32.0-36.0) 32.8 G/DL (32.0-36.0) Red Cell Distribution Width 14.7 % (11.6-14.8) 13.5 % (11.6-14.8) Platelet Count 199 K/UL (150-450) 188 K/UL (150-450) Mean Platelet Volume 5.6 FL (6.5-10.1) 6.6 FL (6.5-10.1) Neutrophils (%) (Auto) 69.8 % (45.0-75.0) 71.8 % (45.0-75.0) Lymphocytes (%) (Auto) 16.7 % (20.0-45.0) 13.9 % (20.0-45.0) Monocytes (%) (Auto) 7.7 % (1.0-10.0) 8.5 % (1.0-10.0) Eosinophils (%) (Auto) 4.7 % (0.0-3.0) 4.5 % (0.0-3.0) Basophils (%) (Auto) 1.1 % (0.0-2.0) 1.3 % (0.0-2.0) Sodium Level 144 MMOL/L (136-145) 141 MMOL/L (136-145) Potassium Level 3.0 MMOL/L (3.5-5.1) 3.7 MMOL/L (3.5-5.1) Chloride Level 99 MMOL/L (98-107) 99 MMOL/L (98-107) Carbon Dioxide Level 39 MMOL/L (21-32) 36 MMOL/L (21-32) Anion Gap 6 mmol/L (5-15) 6 mmol/L (5-15) Blood Urea Nitrogen 11 mg/dL (7-18) 20 mg/dL (7-18) Creatinine 2.6 MG/DL (0.55-1.30) 3.8 MG/DL (0.55-1.30) Estimat Glomerular Filtration Rate 18.2 mL/min (>60) 11.7 mL/min (>60) Glucose Level 126 MG/DL (74-106) 216 MG/DL (74-106) Calcium Level 8.4 MG/DL (8.5-10.1) 7.8 MG/DL (8.5-10.1) Total Bilirubin 0.8 MG/DL (0.2-1.0) 1.0 MG/DL (0.2-1.0) Aspartate Amino Transf (AST/SGOT) 16 U/L (15-37) 16 U/L (15-37) Alanine Aminotransferase (ALT/SGPT) 6 U/L (12-78) 7 U/L (12-78) Alkaline Phosphatase 105 U/L (46-116) 104 U/L (46-116) Total Creatine Kinase 154 U/L (26-308) 143 U/L (26-308) Creatine Kinase MB 1.0 NG/ML (0.0-3.6) Creatine Kinase MB Relative Index 0.6 Troponin I 0.030 ng/mL (0.000-0.056) 0.025 ng/mL (0.000-0.056) Total Protein 7.6 G/DL (6.4-8.2) 7.2 G/DL (6.4-8.2) Albumin 3.8 G/DL (3.4-5.0) 3.5 G/DL (3.4-5.0) Globulin 3.8 g/dL 3.7 g/dL Albumin/Globulin Ratio 1.0 (1.0-2.7) 0.9 (1.0-2.7) Arterial Blood pH 7.475 (7.350-7.450) Arterial Blood Partial Pressure CO2 53.0 mmHg (35.0-45.0) Arterial Blood Partial Pressure O2 54.3 mmHg (75.0-100.0) Arterial Blood HCO3 38.1 mmol/L (22.0-26.0) Arterial Blood Oxygen Saturation 87.9 % (95-100) Arterial Blood Base Excess 12.8 (-2-2) Faheem Test Positive Iron Level 33 ug/dL (50-175) Total Iron Binding Capacity 302 ug/dL (250-450) Percent Iron Saturation 11 % (15-50) Unsaturated Iron Binding 269 ug/dL (112-346) Hemoglobin A1c 7.1 % (4.3-6.0) Uric Acid 4.1 MG/DL (2.6-7.2) Phosphorus Level 2.9 MG/DL (2.5-4.9) Magnesium Level 1.9 MG/DL (1.8-2.4) Ferritin 638 NG/ML (8-388) Gamma Glutamyl Transpeptidase 56 U/L (5-85) C-Reactive Protein, Quantitative 1.4 mg/dL (0.00-0.90) Pro-B-Type Natriuretic Peptide > 93037 pg/mL (0-125) Triglycerides Level 124 MG/DL (30-150) Cholesterol Level 79 MG/DL (< 200) LDL Cholesterol 31 mg/dL (<100) HDL Cholesterol 35 MG/DL (40-60) Cholesterol/HDL Ratio 2.3 (3.3-4.4) Vitamin B12 Level 464 PG/ML (193-986) Folate 9.6 NG/ML (8.6-58.9) Thyroid Stimulating Hormone (TSH) 3.424 uiU/mL (0.358-3.740) Free Thyroxine 1.14 NG/DL (0.76-1.46) Free Triiodothyronine 2.0 pg/mL (2.3-4.2) Test 04/20/19 03:11 04/21/19 03:20 White Blood Count 3.1 K/UL (4.8-10.8) 3.4 K/UL (4.8-10.8) Red Blood Count 3.13 M/UL (4.20-5.40) 3.02 M/UL (4.20-5.40) Hemoglobin 9.6 G/DL (12.0-16.0) 9.2 G/DL (12.0-16.0) Hematocrit 29.3 % (37.0-47.0) 28.4 % (37.0-47.0) Mean Corpuscular Volume 94 FL (80-99) 94 FL (80-99) Mean Corpuscular Hemoglobin 30.5 PG (27.0-31.0) 30.5 PG (27.0-31.0) Mean Corpuscular Hemoglobin Concent 32.6 G/DL (32.0-36.0) 32.5 G/DL (32.0-36.0) Red Cell Distribution Width 14.5 % (11.6-14.8) 14.0 % (11.6-14.8) Platelet Count 174 K/UL (150-450) 170 K/UL (150-450) Mean Platelet Volume 6.2 FL (6.5-10.1) 6.4 FL (6.5-10.1) Neutrophils (%) (Auto) % (45.0-75.0) % (45.0-75.0) Lymphocytes (%) (Auto) % (20.0-45.0) % (20.0-45.0) Monocytes (%) (Auto) % (1.0-10.0) % (1.0-10.0) Eosinophils (%) (Auto) % (0.0-3.0) % (0.0-3.0) Basophils (%) (Auto) % (0.0-2.0) % (0.0-2.0) Sodium Level 141 MMOL/L (136-145) 138 MMOL/L (136-145) Potassium Level 3.6 MMOL/L (3.5-5.1) 3.6 MMOL/L (3.5-5.1) Chloride Level 100 MMOL/L (98-107) 98 MMOL/L (98-107) Carbon Dioxide Level 36 MMOL/L (21-32) 32 MMOL/L (21-32) Anion Gap 5 mmol/L (5-15) 8 mmol/L (5-15) Blood Urea Nitrogen 34 mg/dL (7-18) 46 mg/dL (7-18) Creatinine 5.0 MG/DL (0.55-1.30) 5.8 MG/DL (0.55-1.30) Estimat Glomerular Filtration Rate 8.5 mL/min (>60) 7.2 mL/min (>60) Glucose Level 51 MG/DL (74-106) 178 MG/DL (74-106) Calcium Level 7.3 MG/DL (8.5-10.1) 7.4 MG/DL (8.5-10.1) Phosphorus Level 4.0 MG/DL (2.5-4.9) 4.6 MG/DL (2.5-4.9) Magnesium Level 2.0 MG/DL (1.8-2.4) Total Bilirubin 0.7 MG/DL (0.2-1.0) 0.6 MG/DL (0.2-1.0) Aspartate Amino Transf (AST/SGOT) 13 U/L (15-37) 13 U/L (15-37) Alanine Aminotransferase (ALT/SGPT) < 6 U/L (12-78) 6 U/L (12-78) Alkaline Phosphatase 95 U/L (46-116) 124 U/L (46-116) C-Reactive Protein, Quantitative 1.5 mg/dL (0.00-0.90) Total Protein 7.1 G/DL (6.4-8.2) 7.2 G/DL (6.4-8.2) Albumin 3.5 G/DL (3.4-5.0) 3.5 G/DL (3.4-5.0) Globulin 3.6 g/dL 3.7 g/dL Albumin/Globulin Ratio 1.0 (1.0-2.7) 0.9 (1.0-2.7) Differential Total Cells Counted 100 Neutrophils % (Manual) 71 % (45-75) Lymphocytes % (Manual) 21 % (20-45) Monocytes % (Manual) 6 % (1-10) Eosinophils % (Manual) 2 % (0-3) Basophils % (Manual) 0 % (0-2) Band Neutrophils 0 % (0-8) Platelet Estimate Adequate Platelet Morphology Normal Hypochromasia 1+ Pro-B-Type Natriuretic Peptide > 67978 pg/mL (0-125) Height (Feet): 4 Height (Inches): 11.00 Weight (Pounds): 170 Objective VITAL SIGNS: Reviewed. GENERAL: No distress. PULMONARY: Decreased breath sounds. ++ BIPAP CARDIOVASCULAR: Regular rate. No S3 or S4. ABDOMEN: Soft, nontender, and nondistended. EXTREMITIES: No cyanosis, swelling, or edema. ++ Left AVS Carl Daniels MD Apr 21, 2019 09:37
--- NOTE | 2019-04-21 11:30 | NUR ---
NURSE NOTES: Pt c/o cramping to lower extremities and arms during Hemodialysis.Ongoing hemodialysis done ,removed 3 L of fluid.
--- NOTE | 2019-04-21 12:00 | NUR ---
NURSE NOTES: Dr Falk at bedside,aware of pt's being dialyzed today instead of yesterday.
[2019-04-21] MEDS: Aspirin Baby 81mg ORAL SCH (12:01)
[2019-04-21] MEDS: Docusate 100mg cap ORAL SCH ×3 (12:01→18:24)
[2019-04-21] MEDS: Sennosides 8.6mg tab ORAL SCH (12:02)
[2019-04-21] MEDS: Lisinopril 20mg tab ORAL SCH ×2 (12:02→18:24)
[2019-04-21] MEDS: Metoprolol Tartrate 50mg tab ORAL SCH ×2 (12:03→20:36)
[2019-04-21] MEDS: Heparin 5000 units/ml inj SUBQ SCH ×2 (12:05→20:38)
--- NOTE | 2019-04-21 12:13 | General Progress Note ---
Assessment/Plan Problem List: (1) Pulmonary congestion ICD Codes: R09.89 - Other specified symptoms and signs involving the circulatory and respiratory systems SNOMED: 47032346 (2) Pneumonia ICD Codes: J18.9 - Pneumonia, unspecified organism SNOMED: 735755240 (3) Renal failure ICD Codes: N19 - Unspecified kidney failure SNOMED: 66287322 (4) ESRD (end stage renal disease) ICD Codes: N18.6 - End stage renal disease SNOMED: 14502030 (5) Dyspnea ICD Codes: R06.00 - Dyspnea, unspecified SNOMED: 727764857 (6) Anemia in chronic kidney disease (CKD) ICD Codes: N18.9 - Chronic kidney disease, unspecified; D63.1 - Anemia in chronic kidney disease SNOMED: 662797002 Status: progressing Assessment/Plan: clinically improving reviewed chart and labs pulmonary congestion r/o pna improved dyspnea esrd on hd needs more diaylsis Subjective ROS Limited/Unobtainable: Yes Allergies: Coded Allergies: No Known Allergies (Unverified , 05/12/17) Objective Last 24 Hour Vital Signs Date Time Temp Pulse Resp B/P (MAP) Pulse Ox O2 Delivery O2 Flow Rate FiO2 04/21/19 12:03 81 157/82 04/21/19 12:02 81 157/82 04/21/19 12:02 157/82 04/21/19 11:58 97.2 81 20 157/82 (107) 100 04/21/19 11:42 77 18 99 Nasal Cannula 2.0 28 75 18 100 04/21/19 08:00 79 04/21/19 08:00 2.0 04/21/19 08:00 Nasal Cannula 2.0 04/21/19 08:00 98.0 80 19 164/81 (108) 96 80 04/21/19 07:59 97 Nasal Cannula 2.0 28 04/21/19 07:59 79 18 99 Nasal Cannula 2.0 28 77 18 97 04/21/19 04:00 Nasal Cannula 2.0 04/21/19 04:00 97.9 77 20 150/70 (96) 100 77 04/21/19 04:00 2.0 04/21/19 03:23 81 04/21/19 02:46 83 19 97 Facial 30 04/21/19 02:20 77 18 99 Bi-Pap 30 75 18 97 9/19/19 00:37 87 18 99 Facial 30 04/21/19 00:34 160/70 04/21/19 00:00 Bi-pap 04/21/19 00:00 30 04/21/19 00:00 97.5 84 20 160/70 (100) 98 84 04/21/19 00:00 86 04/20/19 23:17 89 23 98 Facial 30 04/20/19 23:03 80 18 99 Nasal Cannula 2.0 28 77 18 98 04/20/19 21:00 81 157/94 04/20/19 20:00 82 04/20/19 20:00 97.7 81 20 157/94 (115) 100 82 04/20/19 20:00 2.0 04/20/19 20:00 Nasal Cannula 2.0 04/20/19 19:13 79 18 100 Nasal Cannula 2.0 28 82 18 99 04/20/19 19:12 99 Nasal Cannula 2.0 28 04/20/19 16:00 98.2 82 18 148/80 (102) 98 82 04/20/19 16:00 2.0 04/20/19 16:00 Nasal Cannula 2.0 04/20/19 16:00 90 04/20/19 15:56 84 20 100 Nasal Cannula 2.0 28 04/20/19 15:46 82 20 95 Intake and Output 04/20/19 04/21/19 19:00 07:00 Intake Total 250 ml Balance 250 ml Intake Oral 250 ml # Voids 1 # Bowel Movements 2 Laboratory Tests 04/21/19 03:20: White Blood Count 3.4L, Red Blood Count 3.02L, Hemoglobin 9.2L, Hematocrit 28.4L , Mean Corpuscular Volume 94, Mean Corpuscular Hemoglobin 30.5, Mean Corpuscular Hemoglobin Concent 32.5, Red Cell Distribution Width 14.0, Platelet Count 170, Mean Platelet Volume 6.4L, Neutrophils (%) (Auto) , Lymphocytes (%) ( Auto) , Monocytes (%) (Auto) , Eosinophils (%) (Auto) , Basophils (%) (Auto) , Differential Total Cells Counted 100, Neutrophils % (Manual) 71, Lymphocytes % ( Manual) 21, Monocytes % (Manual) 6, Eosinophils % (Manual) 2, Basophils % ( Manual) 0, Band Neutrophils 0, Platelet Estimate Adequate, Platelet Morphology Normal, Hypochromasia 1+, Sodium Level 138, Potassium Level 3.6, Chloride Level 98, Carbon Dioxide Level 32, Anion Gap 8, Blood Urea Nitrogen 46H, Creatinine 5.8H, Estimat Glomerular Filtration Rate 7.2, Glucose Level 178#H, Calcium Level 7.4L, Phosphorus Level 4.6, Total Bilirubin 0.6, Aspartate Amino Transf ( AST/SGOT) 13L, Alanine Aminotransferase (ALT/SGPT) 6L, Alkaline Phosphatase 124H , Pro-B-Type Natriuretic Peptide > 81917V, Total Protein 7.2, Albumin 3.5, Globulin 3.7, Albumin/Globulin Ratio 0.9L Height (Feet): 4 Height (Inches): 11.00 Weight (Pounds): 169 Neck: supple Cardiovascular: normal rate Respiratory/Chest: lungs clear Abdomen: soft Makenna Daniel MD Apr 21, 2019 12:13
--- NOTE | 2019-04-21 12:34 | Infectious Diseases Prog Note ---
Assessment/Plan Assessment/Plan IMPRESSION: 1. Dyspnea, likely secondary to congestive hear failure. 2. Hypoxemic respiratory failure. 3. End-stage renal disease, on hemodialysis. 4. Diabetes mellitus. 5. Diastolic CHF. 6. Aortic stenosis. 7. Hypertension. 8. Anemia. 9. Leukopenia. RECOMMENDATIONS: 1. Continue off of antibiotic. 2. We will continue bronchodilators. Subjective ROS Limited/Unobtainable: Yes Constitutional: Denies: fever Respiratory: Reports: dry cough Musculoskeletal: Reports: other - muscle cramps after dialysis Allergies: Coded Allergies: No Known Allergies (Unverified , 05/12/17) Objective Vital Signs Last 24 Hour Vital Signs Date Time Temp Pulse Resp B/P (MAP) Pulse Ox O2 Delivery O2 Flow Rate FiO2 04/21/19 12:03 81 157/82 04/21/19 12:02 81 157/82 04/21/19 12:02 157/82 04/21/19 12:00 2.0 04/21/19 11:58 97.2 81 20 157/82 (107) 100 04/21/19 11:42 77 18 99 Nasal Cannula 2.0 28 75 18 100 04/21/19 08:00 79 04/21/19 08:00 2.0 04/21/19 08:00 Nasal Cannula 2.0 04/21/19 08:00 98.0 80 19 164/81 (108) 96 80 04/21/19 07:59 97 Nasal Cannula 2.0 28 04/21/19 07:59 79 18 99 Nasal Cannula 2.0 28 77 18 97 04/21/19 04:00 Nasal Cannula 2.0 04/21/19 04:00 97.9 77 20 150/70 (96) 100 77 04/21/19 04:00 2.0 04/21/19 03:23 81 04/21/19 02:46 83 19 97 Facial 30 04/21/19 02:20 77 18 99 Bi-Pap 30 75 18 97 04/21/19 00:37 87 18 99 Facial 30 04/21/19 00:34 160/70 04/21/19 00:00 Bi-pap 04/21/19 00:00 30 04/21/19 00:00 97.5 84 20 160/70 (100) 98 84 04/21/19 00:00 86 04/20/19 23:17 89 23 98 Facial 30 04/20/19 23:03 80 18 99 Nasal Cannula 2.0 28 77 18 98 04/20/19 21:00 81 157/94 04/20/19 20:00 82 04/20/19 20:00 97.7 81 20 157/94 (115) 100 82 04/20/19 20:00 2.0 04/20/19 20:00 Nasal Cannula 2.0 04/20/19 19:13 79 18 100 Nasal Cannula 2.0 28 82 18 99 04/20/19 19:12 99 Nasal Cannula 2.0 28 04/20/19 16:00 98.2 82 18 148/80 (102) 98 82 04/20/19 16:00 2.0 04/20/19 16:00 Nasal Cannula 2.0 04/20/19 16:00 90 04/20/19 15:56 84 20 100 Nasal Cannula 2.0 28 04/20/19 15:46 82 20 95 Height (Feet): 4 Height (Inches): 11.00 Weight (Pounds): 169 General Appearance: no acute distress HEENT: mucous membranes moist Respiratory/Chest: lungs clear Cardiovascular: normal rate Abdomen: soft, non tender Extremities: no edema Neurologic/Psychiatric: alert, oriented x 3, responsive Microbiology Date/Time Source Procedure Growth Status 04/18/19 15:45 Nasal Nares MRSA Culture - Final NO METHICILLIN RESISTANT STAPH AUREUS... Complete Laboratory Tests Test 04/21/19 03:20 White Blood Count 3.4 K/UL (4.8-10.8) L Red Blood Count 3.02 M/UL (4.20-5.40) L Hemoglobin 9.2 G/DL (12.0-16.0) L Hematocrit 28.4 % (37.0-47.0) L Mean Corpuscular Volume 94 FL (80-99) Mean Corpuscular Hemoglobin 30.5 PG (27.0-31.0) Mean Corpuscular Hemoglobin Concent 32.5 G/DL (32.0-36.0) Red Cell Distribution Width 14.0 % (11.6-14.8) Platelet Count 170 K/UL (150-450) Mean Platelet Volume 6.4 FL (6.5-10.1) L Neutrophils (%) (Auto) % (45.0-75.0) Lymphocytes (%) (Auto) % (20.0-45.0) Monocytes (%) (Auto) % (1.0-10.0) Eosinophils (%) (Auto) % (0.0-3.0) Basophils (%) (Auto) % (0.0-2.0) Differential Total Cells Counted 100 Neutrophils % (Manual) 71 % (45-75) Lymphocytes % (Manual) 21 % (20-45) Monocytes % (Manual) 6 % (1-10) Eosinophils % (Manual) 2 % (0-3) Basophils % (Manual) 0 % (0-2) Band Neutrophils 0 % (0-8) Platelet Estimate Adequate Platelet Morphology Normal Hypochromasia 1+ Sodium Level 138 MMOL/L (136-145) Potassium Level 3.6 MMOL/L (3.5-5.1) Chloride Level 98 MMOL/L (98-107) Carbon Dioxide Level 32 MMOL/L (21-32) Anion Gap 8 mmol/L (5-15) Blood Urea Nitrogen 46 mg/dL (7-18) H Creatinine 5.8 MG/DL (0.55-1.30) H Estimat Glomerular Filtration Rate 7.2 mL/min (>60) Glucose Level 178 MG/DL (74-106) #H Calcium Level 7.4 MG/DL (8.5-10.1) L Phosphorus Level 4.6 MG/DL (2.5-4.9) Total Bilirubin 0.6 MG/DL (0.2-1.0) Aspartate Amino Transf (AST/SGOT) 13 U/L (15-37) L Alanine Aminotransferase (ALT/SGPT) 6 U/L (12-78) L Alkaline Phosphatase 124 U/L (46-116) H Pro-B-Type Natriuretic Peptide > 25182 pg/mL (0-125) H Total Protein 7.2 G/DL (6.4-8.2) Albumin 3.5 G/DL (3.4-5.0) Globulin 3.7 g/dL Albumin/Globulin Ratio 0.9 (1.0-2.7) L Current Medications Medications (Trade) Dose Ordered Sig/Toya Route PRN Reason Start Time Stop Time Status Last Admin Dose Admin Acetaminophen (Tylenol) 500 mg Q4H PRN ORAL Mild Pain/Temp > 100.5 9/16/19 15:45 05/18/19 15:44 04/20/19 21:50 Albuterol/ Ipratropium (Albuterol/ Ipratropium) 3 ml Q4HRT HHN 04/18/19 19:00 04/23/19 18:59 04/21/19 11:41 Amlodipine Besylate (Norvasc) 10 mg DAILY ORAL 04/19/19 09:00 05/19/19 08:59 04/21/19 12:02 Aspirin (ASA) 81 mg DAILY ORAL 04/19/19 13:37 05/19/19 13:36 04/21/19 12:01 Atorvastatin Calcium (Lipitor) 10 mg BEDTIME ORAL 04/19/19 21:00 05/18/19 20:59 04/20/19 21:42 Dextrose (Dextrose 50%) 25 ml Q30M PRN IV Hypoglycemia 04/18/19 15:45 05/18/19 15:44 Dextrose (Dextrose 50%) 50 ml Q30M PRN IV Hypoglycemia 04/18/19 15:45 05/18/19 15:44 Docusate Sodium (Colace) 100 mg TID ORAL 04/18/19 18:00 05/18/19 17:59 04/21/19 12:01 Epoetin Panchito (Epoetin Panchito(ESRD on dialysis)) 3,000 unit THU-THU-THU SUBQ 04/20/19 21:00 05/20/19 20:59 04/20/19 21:43 Folic Acid (Folate) 3 mg DAILY ORAL 04/19/19 09:00 05/19/19 08:59 04/21/19 12:01 Gabapentin (Neurontin) 300 mg Q8HR ORAL 04/18/19 17:00 05/18/19 16:59 04/21/19 05:52 Guaifenesin/ Dextromethorphan (Robitussin DM Syrup) 5 ml Q6H PRN ORAL For Cough 04/19/19 06:45 05/19/19 06:44 04/19/19 12:18 Heparin Sodium (Porcine) (Heparin 5000 units/ml) 5,000 units EVERY 12 HOURS SUBQ 04/18/19 21:00 05/18/19 20:59 04/21/19 12:05 Hydralazine HCl (Apresoline) 25 mg Q4H PRN ORAL prn bp over 160 syst 04/18/19 16:45 05/18/19 16:44 04/21/19 00:34 Insulin Aspart (NovoLOG) BEFORE MEALS AND HS SUBQ 04/18/19 16:30 05/18/19 16:29 04/21/19 12:06 Insulin Detemir (Levemir) 10 units BEDTIME SUBQ 04/20/19 21:00 05/19/19 20:59 04/20/19 21:57 Levothyroxine Sodium (Synthroid) 100 mcg DAILY@0630 ORAL 04/19/19 06:30 05/19/19 06:29 04/21/19 05:52 Lisinopril (Prinivil) 20 mg BID ORAL 04/18/19 18:00 05/18/19 17:59 04/21/19 12:02 Metoclopramide HCl (Reglan) 10 mg Q6H PRN IVP Nausea & Vomiting 04/18/19 17:00 05/18/19 16:59 Metoprolol Tartrate (Lopressor) 50 mg EVERY 12 HOURS ORAL 04/18/19 21:00 05/18/19 20:59 04/21/19 12:03 Pantoprazole (Protonix) 40 mg EVERY 12 HOURS ORAL 04/18/19 21:00 05/18/19 20:59 04/21/19 12:02 Sennosides (Senokot) 8.6 mg DAILY ORAL 04/19/19 09:00 05/19/19 08:59 04/21/19 12:02 Tramadol HCl (Ultram) 50 mg Q6H PRN ORAL pain 6 - 10 04/18/19 17:00 04/25/19 16:59 Kalin Briseno MD Apr 21, 2019 12:34
--- NOTE | 2019-04-21 13:26 | NUR ---
CASE MANAGEMENT:REVIEW 04/21/19 SI: PNA. RENAL FAILURE.PULMONARY CONGESTION ESRD ON HD 97.2 81 20 157/82 100% ON 2L/NC H/H-9.2/28.4 BUN+46 CR+5.8 IS: LEVEMIR SQ QHS ASA PO QD FOLATE PO QD NORVASC PO QD SYNTHROID PO QD HEPARIN SQ Q12 LOPRESSOR PO Q12 DUONEB HHN Q4HRS RTC LISINOPRIL PO BID : TRANSFER TO MED/SURG DCP: FROM HOME
--- NOTE | 2019-04-21 13:57 | Nephrology Progress Note ---
Assessment/Plan Problem List: (1) ESRD (end stage renal disease) (2) Respiratory distress (3) Anemia in chronic kidney disease (CKD) (4) Diabetic nephropathy with proteinuria (5) Hypertensive kidney disease Assessment ESRD Pulm EDema DM HTN Anemia Low B12 and Iron by history CAD . Plan BP meds- adjusted 2D Echo Ej Fx 50 % Pulm support per orders HD today 04/21/ UF DONE_ ( HD not done yesterday 04/20 due to unavailability of vendor) add levemir HS Subjective ROS Limited/Unobtainable: No Constitutional: Reports: malaise Objective Objective Last 24 Hour Vital Signs Date Time Temp Pulse Resp B/P (MAP) Pulse Ox O2 Delivery O2 Flow Rate FiO2 04/21/19 12:03 81 157/82 04/21/19 12:02 81 157/82 04/21/19 12:02 157/82 04/21/19 12:00 2.0 04/21/19 12:00 Nasal Cannula 2.0 04/21/19 11:58 97.2 81 20 157/82 (107) 100 04/21/19 11:42 77 18 99 Nasal Cannula 2.0 28 75 18 100 04/21/19 11:29 79 04/21/19 08:00 79 04/21/19 08:00 2.0 04/21/19 08:00 Nasal Cannula 2.0 04/21/19 08:00 98.0 80 19 164/81 (108) 96 80 04/21/19 07:59 97 Nasal Cannula 2.0 28 04/21/19 07:59 79 18 99 Nasal Cannula 2.0 28 77 18 97 04/21/19 04:00 Nasal Cannula 2.0 04/21/19 04:00 97.9 77 20 150/70 (96) 100 77 04/21/19 04:00 2.0 04/21/19 03:23 81 04/21/19 02:46 83 19 97 Facial 30 04/21/19 02:20 77 18 99 Bi-Pap 30 75 18 97 04/21/19 00:37 87 18 99 Facial 30 04/21/19 00:34 160/70 04/21/19 00:00 Bi-pap 04/21/19 00:00 30 04/21/19 00:00 97.5 84 20 160/70 (100) 98 84 04/21/19 00:00 86 04/20/19 23:17 89 23 98 Facial 30 04/20/19 23:03 80 18 99 Nasal Cannula 2.0 28 77 18 98 04/20/19 21:00 81 157/94 04/20/19 20:00 82 04/20/19 20:00 97.7 81 20 157/94 (115) 100 82 04/20/19 20:00 2.0 04/20/19 20:00 Nasal Cannula 2.0 04/20/19 19:13 79 18 100 Nasal Cannula 2.0 28 82 18 99 04/20/19 19:12 99 Nasal Cannula 2.0 28 04/20/19 16:00 98.2 82 18 148/80 (102) 98 82 04/20/19 16:00 2.0 04/20/19 16:00 Nasal Cannula 2.0 04/20/19 16:00 90 04/20/19 15:56 84 20 100 Nasal Cannula 2.0 28 04/20/19 15:46 82 20 95 Intake and Output 04/20/19 04/21/19 19:00 07:00 Intake Total 250 ml Balance 250 ml Intake Oral 250 ml # Voids 1 # Bowel Movements 2 Laboratory Tests 04/21/19 03:20: White Blood Count 3.4L, Red Blood Count 3.02L, Hemoglobin 9.2L, Hematocrit 28.4L , Mean Corpuscular Volume 94, Mean Corpuscular Hemoglobin 30.5, Mean Corpuscular Hemoglobin Concent 32.5, Red Cell Distribution Width 14.0, Platelet Count 170, Mean Platelet Volume 6.4L, Neutrophils (%) (Auto) , Lymphocytes (%) ( Auto) , Monocytes (%) (Auto) , Eosinophils (%) (Auto) , Basophils (%) (Auto) , Differential Total Cells Counted 100, Neutrophils % (Manual) 71, Lymphocytes % ( Manual) 21, Monocytes % (Manual) 6, Eosinophils % (Manual) 2, Basophils % ( Manual) 0, Band Neutrophils 0, Platelet Estimate Adequate, Platelet Morphology Normal, Hypochromasia 1+, Sodium Level 138, Potassium Level 3.6, Chloride Level 98, Carbon Dioxide Level 32, Anion Gap 8, Blood Urea Nitrogen 46H, Creatinine 5.8H, Estimat Glomerular Filtration Rate 7.2, Glucose Level 178#H, Calcium Level 7.4L, Phosphorus Level 4.6, Total Bilirubin 0.6, Aspartate Amino Transf ( AST/SGOT) 13L, Alanine Aminotransferase (ALT/SGPT) 6L, Alkaline Phosphatase 124H , Pro-B-Type Natriuretic Peptide > 33851U, Total Protein 7.2, Albumin 3.5, Globulin 3.7, Albumin/Globulin Ratio 0.9L Height (Feet): 4 Height (Inches): 11.00 Weight (Pounds): 169 General Appearance: no apparent distress Cardiovascular: normal rate Respiratory/Chest: decreased breath sounds Abdomen: soft Francis Falk MD Apr 21, 2019 13:57
--- NOTE | 2019-04-21 16:43 | Pulmonology Progress Note ---
Assessment/Plan Assessment/Plan Pulmonary Progress Note HPI Patient is a 69 year old woman presenting with shortness of breath/cough ongoing for several days, patient has CKD, HTN, DM, CAD, Asthma, receives dialysis on Thursday and Thursday No current SOB, she denies any fever, no nausea, vomiting or diarrhea, has fatigue and malaise, no chest pain. Allergies: No Known Allergies Past Medical History: CKD on HD, HTN, DM, Asthma, previous CAD All Other Systems: negative except mentioned in HPI Physical Exam Vital Signs Noted General Appearance: no distress on BiPAP Head: normocephalic, atraumatic Eyes: bilateral eye PERRL, bilateral eye EOMI ENT: moist mm Neck: no LN Respiratory: no retraction, no accessory muscle use, CTAB Cardiovascular: normal peripheral pulses, regular rate, rhythm, no JVD, no murmur, normal hS1/HS2 Gastrointestinal: normal bowel sounds, non tender, soft, no mass, no organomegaly, non-distended, no guarding, no hernia, no pulsatile mass, no rebound Genitourinary: no CVA tenderness Musculoskeletal: normal inspection - AV left arm Neurologic: oriented x3, responsive, fashion marketer III-XII nml as tested, motor strength/ tone normal, sensory intact Skin: no rash, no edema Impression: Respiratory distress improved Pulmonary congestion on CXR 04/20 ESRD (end stage renal disease) on HD Hypertension Diabetes CAD Plan: BiPAP 15/5 PRN HD per Renal NC O2 PRN HHN PRN Monitor labs PPX ISS VQ low probability Labs noted Chest X-Ray: no consolidation, no pneumothorax, other - pulmonary congestion VQ low probability Subjective ROS Limited/Unobtainable: No Allergies: Coded Allergies: No Known Allergies (Unverified , 05/12/17) Objective Last 24 Hour Vital Signs Date Time Temp Pulse Resp B/P (MAP) Pulse Ox O2 Delivery O2 Flow Rate FiO2 04/21/19 16:00 2.0 04/21/19 16:00 98.3 75 20 153/87 (109) 98 04/21/19 16:00 Nasal Cannula 2.0 04/21/19 15:36 84 18 100 Nasal Cannula 2.0 28 89 18 98 04/21/19 12:03 81 157/82 04/21/19 12:02 81 157/82 04/21/19 12:02 157/82 04/21/19 12:00 2.0 04/21/19 12:00 Nasal Cannula 2.0 04/21/19 11:58 97.2 81 20 157/82 (107) 100 04/21/19 11:42 77 18 99 Nasal Cannula 2.0 28 75 18 100 04/21/19 11:29 79 04/21/19 08:00 79 04/21/19 08:00 2.0 04/21/19 08:00 Nasal Cannula 2.0 04/21/19 08:00 98.0 80 19 164/81 (108) 96 80 04/21/19 07:59 97 Nasal Cannula 2.0 28 04/21/19 07:59 79 18 99 Nasal Cannula 2.0 28 77 18 97 04/21/19 04:00 Nasal Cannula 2.0 04/21/19 04:00 97.9 77 20 150/70 (96) 100 77 04/21/19 04:00 2.0 04/21/19 03:23 81 04/21/19 02:46 83 19 97 Facial 30 04/21/19 02:20 77 18 99 Bi-Pap 30 75 18 97 04/21/19 00:37 87 18 99 Facial 30 04/21/19 00:34 160/70 04/21/19 00:00 Bi-pap 04/21/19 00:00 30 04/21/19 00:00 97.5 84 20 160/70 (100) 98 84 04/21/19 00:00 86 04/20/19 23:17 89 23 98 Facial 30 04/20/19 23:03 80 18 99 Nasal Cannula 2.0 28 77 18 98 04/20/19 21:00 81 157/94 04/20/19 20:00 82 04/20/19 20:00 97.7 81 20 157/94 (115) 100 82 04/20/19 20:00 2.0 04/20/19 20:00 Nasal Cannula 2.0 04/20/19 19:13 79 18 100 Nasal Cannula 2.0 28 82 18 99 04/20/19 19:12 99 Nasal Cannula 2.0 28 Intake and Output 04/20/19 04/21/19 19:00 07:00 Intake Total 250 ml Balance 250 ml Intake Oral 250 ml # Voids 1 # Bowel Movements 2 Laboratory Tests 04/21/19 03:20: White Blood Count 3.4L, Red Blood Count 3.02L, Hemoglobin 9.2L, Hematocrit 28.4L , Mean Corpuscular Volume 94, Mean Corpuscular Hemoglobin 30.5, Mean Corpuscular Hemoglobin Concent 32.5, Red Cell Distribution Width 14.0, Platelet Count 170, Mean Platelet Volume 6.4L, Neutrophils (%) (Auto) , Lymphocytes (%) ( Auto) , Monocytes (%) (Auto) , Eosinophils (%) (Auto) , Basophils (%) (Auto) , Differential Total Cells Counted 100, Neutrophils % (Manual) 71, Lymphocytes % ( Manual) 21, Monocytes % (Manual) 6, Eosinophils % (Manual) 2, Basophils % ( Manual) 0, Band Neutrophils 0, Platelet Estimate Adequate, Platelet Morphology Normal, Hypochromasia 1+, Sodium Level 138, Potassium Level 3.6, Chloride Level 98, Carbon Dioxide Level 32, Anion Gap 8, Blood Urea Nitrogen 46H, Creatinine 5.8H, Estimat Glomerular Filtration Rate 7.2, Glucose Level 178#H, Calcium Level 7.4L, Phosphorus Level 4.6, Total Bilirubin 0.6, Aspartate Amino Transf ( AST/SGOT) 13L, Alanine Aminotransferase (ALT/SGPT) 6L, Alkaline Phosphatase 124H , Pro-B-Type Natriuretic Peptide > 95507O, Total Protein 7.2, Albumin 3.5, Globulin 3.7, Albumin/Globulin Ratio 0.9L Current Medications Medications (Trade) Dose Ordered Sig/Toya Route PRN Reason Start Time Stop Time Status Last Admin Dose Admin Acetaminophen (Tylenol) 500 mg Q4H PRN ORAL Mild Pain/Temp > 100.5 04/18/19 15:45 05/18/19 15:44 04/20/19 21:50 Albuterol/ Ipratropium (Albuterol/ Ipratropium) 3 ml Q4HRT HHN 04/18/19 19:00 04/23/19 18:59 04/21/19 15:36 Amlodipine Besylate (Norvasc) 10 mg DAILY ORAL 04/19/19 09:00 05/19/19 08:59 04/21/19 12:02 Aspirin (ASA) 81 mg DAILY ORAL 04/19/19 13:37 05/19/19 13:36 04/21/19 12:01 Atorvastatin Calcium (Lipitor) 10 mg BEDTIME ORAL 04/19/19 21:00 05/18/19 20:59 04/20/19 21:42 Dextrose (Dextrose 50%) 25 ml Q30M PRN IV Hypoglycemia 04/18/19 15:45 05/18/19 15:44 Dextrose (Dextrose 50%) 50 ml Q30M PRN IV Hypoglycemia 04/18/19 15:45 05/18/19 15:44 Docusate Sodium (Colace) 100 mg TID ORAL 04/18/19 18:00 05/18/19 17:59 04/21/19 12:01 Epoetin Panchito (Epoetin Panchito(ESRD on dialysis)) 3,000 unit THU-THU-THU SUBQ 04/20/19 21:00 05/20/19 20:59 04/20/19 21:43 Folic Acid (Folate) 3 mg DAILY ORAL 04/19/19 09:00 05/19/19 08:59 04/21/19 12:01 Gabapentin (Neurontin) 300 mg Q8HR ORAL 04/18/19 17:00 05/18/19 16:59 04/21/19 14:43 Guaifenesin/ Dextromethorphan (Robitussin DM Syrup) 5 ml Q6H PRN ORAL For Cough 04/19/19 06:45 05/19/19 06:44 04/19/19 12:18 Heparin Sodium (Porcine) (Heparin 5000 units/ml) 5,000 units EVERY 12 HOURS SUBQ 04/18/19 21:00 05/18/19 20:59 04/21/19 12:05 Hydralazine HCl (Apresoline) 25 mg Q4H PRN ORAL prn bp over 160 syst 04/18/19 16:45 05/18/19 16:44 04/21/19 00:34 Insulin Aspart (NovoLOG) BEFORE MEALS AND HS SUBQ 04/18/19 16:30 05/18/19 16:29 04/21/19 12:06 Insulin Detemir (Levemir) 10 units BEDTIME SUBQ 04/20/19 21:00 05/19/19 20:59 04/20/19 21:57 Levothyroxine Sodium (Synthroid) 100 mcg DAILY@0630 ORAL 04/19/19 06:30 05/19/19 06:29 04/21/19 05:52 Lisinopril (Prinivil) 20 mg BID ORAL 04/18/19 18:00 05/18/19 17:59 04/21/19 12:02 Metoclopramide HCl (Reglan) 10 mg Q6H PRN IVP Nausea & Vomiting 04/18/19 17:00 05/18/19 16:59 Metoprolol Tartrate (Lopressor) 50 mg EVERY 12 HOURS ORAL 04/18/19 21:00 05/18/19 20:59 04/21/19 12:03 Pantoprazole (Protonix) 40 mg EVERY 12 HOURS ORAL 04/18/19 21:00 05/18/19 20:59 04/21/19 12:02 Sennosides (Senokot) 8.6 mg DAILY ORAL 04/19/19 09:00 05/19/19 08:59 04/21/19 12:02 Tramadol HCl (Ultram) 50 mg Q6H PRN ORAL pain 6 - 10 04/18/19 17:00 04/25/19 16:59 Brandon Herbert MD Apr 21, 2019 16:43
--- NOTE | 2019-04-21 17:35 | NUR ---
TRANSFER TO FLOOR: Patient transferred to 401-2, per bed awake,alert in no resp distress ,stable. Report given to Francoise RN. Belongings and medications given to receiving RN
--- NOTE | 2019-04-21 17:59 | NUR ---
NURSE NOTES: I received report from SIDNEY Finley; patient alert x4; on nasal cannula 2 Liter, no sing of distress and shortness of breath; no sign of chest pain; IV RH 22G flushes well; Hemodialysis port on Left-Upper Hand; the usual scheduled for dialysis is Thursday, Thursday and Thursday; patient missed dialysis yesterday because of VIP dialysis nurse not available; patient dialyzed today and removed 3 Liter; patient is ambulatory; skin intact; patient use Bipap PRN, RT will bring it from step down; belonging list signed by transferring and receiving nurse. bed at lowest position, side rails up x2, breaks engaged, call light within reach; will keep monitoring.
[2019-04-21] MEDS ORDERED: Guaifenesin/DM 10ml syrup ORAL PRN (18:03)
[2019-04-21] MEDS ORDERED: Acetaminophen 500mg (ES) tab ORAL PRN (18:03)
[2019-04-21] MEDS ORDERED: HydrALAZINE 25mg tab ORAL PRN (18:04)
[2019-04-21] MEDS ORDERED: Metoclopramide 10mg/2ml Inj IVP PRN (18:04)
[2019-04-21] MEDS ORDERED: traMADol 50mg tab ORAL PRN (18:05)
--- NOTE | 2019-04-21 19:20 | NUR ---
NURSE NOTES: Patient awake sitting on bed, talking on her cellphone, no complaint at this time. On nasal cannula 2LPM. Instructed to use call light for assistance. Call light in reach. Bed in lowest position and lock engaged. Will continue to monitor.
--- NOTE | 2019-04-21 19:26 | NUR ---
HAND-OFF: Report given to SIDNEY Dillard.
[2019-04-21] MEDS ORDERED: Levemir Flexpen SUBQ SCH (21:00)
[2019-04-22] MEDS: Albuterol/Ipratropium 3ml neb HHN SCH ×6 (02:42→23:36)
[2019-04-22] MEDS: NovoLOG Insulin Flexpen SUBQ SCH ×4 (05:37→21:18)
[2019-04-22 05:44] LABS: BASOPHILS % (AUTO) 1.9 % (0.0-2.0); EOSINOPHILS % (AUTO) 4.7 % (0.0-3.0); HEMATOCRIT 29.7 % (37.0-47.0); HEMOGLOBIN 9.7 G/DL (12.0-16.0); LYMPHOCYTES % (AUTO) 11.9 % (20.0-45.0); MEAN CORPUSCULAR VOLUME 94 FL (80-99); MONOCYTES % (AUTO) 8.1 % (1.0-10.0); NEUTROPHILS % (AUTO) 73.4 % (45.0-75.0); PLATELET COUNT 196 K/UL (150-450); RED BLOOD COUNT 3.18 M/UL (4.20-5.40); RED CELL DISTRIBUTION WIDTH 13.9 % (11.6-14.8); WHITE BLOOD COUNT 3.9 K/UL (4.8-10.8)
--- NOTE | 2019-04-22 06:03 | Hematology/Onc Progress Note ---
Assessment/Plan Assessment/Plan Assessment/Plan 1. Anemia due to underlying chronic disease. Have reviewed prior workup, ferritin is >1000, though percent saturation Tsat <30, but not recommended for further iron --> Continue to closely monitor. --> Transfuse if hgb <7 --> ferritin is >600, therefore hold off oniron --> started epogen, has been started with hd --> hgb trend 9.6 --> monitor for gi bleed 2. Leukopenia likely reactive process v infection --> hepatitis and hiv prior negative --> neutropenic precautions if ANC <1500 --> trending stable --> imaging reviewed and no hsm / cirrhosis noted prior --> wbc trend 3.1-->3.4 3. End-stage renal disease, on hemodialysis three times a week. continue mwf --> renal consulted --> hd for 04/21 4. Coronary artery disease. --> cards reviewed --> with fluid overload may need diuresis --> with less sob 5. History of anemia due to low B12, low iron. --> b12 is currently within normal limits --> reobtain q6mo 6. Dizziness and unsteady gait. 7. DVt ppsx with heparin sq Greatly appreciate consultation. Subjective Constitutional: Denies: no symptoms, chills, fever, malaise, weakness, other HEENT: Denies: no symptoms, eye pain, blurred vision, tearing, double vision, ear pain, ear discharge, nose pain, nose congestion, throat pain, throat swelling, mouth pain, mouth swelling, other Gastrointestinal/Abdominal: Denies: no symptoms, abdomen distended, abdominal pain, black stools, tarry stools, blood in stool, constipated, diarrhea, difficulty swallowing, nausea, poor appetite, poor fluid intake, rectal bleeding , vomiting, other Genitourinary: Denies: no symptoms, burning, discharge, frequency, flank pain, hematuria, incontinence, pain, urgency, other Neurologic/Psychiatric: Denies: no symptoms, anxiety, depressed, emotional problems, headache, numbness, paresthesia, pre-existing deficit, seizure, tingling, tremors, weakness, other Endocrine: Denies: no symptoms, excessive sweating, flushing, intolerance to cold, intolerance to heat, increased hunger, increased thirst, increased urine, unexplained weight gain, unexplained weight loss, other Allergies: Coded Allergies: No Known Allergies (Unverified , 05/12/17) Subjective 04/20: bs was low o/n, 54 dw rn, and given oj, labs reviewed 04/21: getting hd, no events, no bleeding, no f/c 04/22: on 2l nc, no bleeding or chills, using bipap prn basis Objective Objective Current Medications Medications (Trade) Dose Ordered Sig/Toya Route PRN Reason Start Time Stop Time Status Last Admin Dose Admin Acetaminophen (Tylenol) 500 mg Q4H PRN ORAL Mild Pain/Temp > 100.5 04/21/19 18:03 05/21/19 18:02 Albuterol/ Ipratropium (Albuterol/ Ipratropium) 3 ml Q4HRT HHN 04/21/19 19:00 04/23/19 18:59 04/22/19 02:42 Amlodipine Besylate (Norvasc) 10 mg DAILY ORAL 04/22/19 09:00 05/19/19 08:59 Aspirin (ASA) 81 mg DAILY ORAL 04/22/19 09:00 05/19/19 13:36 Atorvastatin Calcium (Lipitor) 10 mg BEDTIME ORAL 04/21/19 21:00 05/18/19 20:59 04/21/19 20:36 Dextrose (Dextrose 50%) 25 ml Q30M PRN IV Hypoglycemia 04/21/19 18:15 05/18/19 15:44 Dextrose (Dextrose 50%) 50 ml Q30M PRN IV Hypoglycemia 04/21/19 18:15 05/18/19 15:44 Docusate Sodium (Colace) 100 mg TID ORAL 04/21/19 18:05 05/21/19 18:04 04/21/19 18:24 Epoetin Panchito (Epoetin Panchito(ESRD on dialysis)) 3,000 unit THU-WED-THU SUBQ 04/22/19 21:00 05/20/19 20:59 Folic Acid (Folate) 3 mg DAILY ORAL 04/22/19 09:00 05/19/19 08:59 Gabapentin (Neurontin) 300 mg Q8HR ORAL 04/21/19 22:00 05/18/19 16:59 04/22/19 05:35 Guaifenesin/ Dextromethorphan (Robitussin DM Syrup) 5 ml Q6H PRN ORAL For Cough 04/21/19 18:03 05/21/19 18:02 Heparin Sodium (Porcine) (Heparin 5000 units/ml) 5,000 units EVERY 12 HOURS SUBQ 04/21/19 21:00 05/18/19 20:59 04/21/19 20:38 Hydralazine HCl (Apresoline) 25 mg Q4H PRN ORAL prn bp over 160 syst 04/21/19 18:04 05/21/19 18:03 Insulin Aspart (NovoLOG) BEFORE MEALS AND HS SUBQ 04/21/19 21:00 05/18/19 16:29 04/22/19 05:37 Insulin Detemir (Levemir) 10 units BEDTIME SUBQ 04/21/19 21:00 05/19/19 20:59 04/21/19 20:39 Levothyroxine Sodium (Synthroid) 100 mcg DAILY@0630 ORAL 04/22/19 06:30 05/19/19 06:29 04/22/19 05:35 Lisinopril (Prinivil) 20 mg BID ORAL 04/21/19 18:05 05/21/19 18:04 04/21/19 18:24 Metoclopramide HCl (Reglan) 10 mg Q6H PRN IVP Nausea & Vomiting 04/21/19 18:04 05/21/19 18:03 Metoprolol Tartrate (Lopressor) 50 mg EVERY 12 HOURS ORAL 04/21/19 21:00 05/18/19 20:59 04/21/19 20:36 Pantoprazole (Protonix) 40 mg EVERY 12 HOURS ORAL 04/21/19 21:00 05/18/19 20:59 04/21/19 20:36 Sennosides (Senokot) 8.6 mg DAILY ORAL 04/22/19 09:00 05/19/19 08:59 Tramadol HCl (Ultram) 50 mg Q6H PRN ORAL pain 6 - 10 04/21/19 18:05 04/28/19 18:04 Last 24 Hour Vital Signs Date Time Temp Pulse Resp B/P (MAP) Pulse Ox O2 Delivery O2 Flow Rate FiO2 04/22/19 04:34 89 22 97 Facial 30 04/22/19 04:00 30 04/22/19 02:44 90 18 100 Nasal Cannula 2.0 28 95 18 98 04/22/19 00:56 82 20 99 Facial 30 04/21/19 22:58 89 18 98 Facial 30 04/21/19 22:31 85 18 99 Nasal Cannula 2.0 28 82 18 97 04/21/19 20:36 82 127/70 04/21/19 20:00 99.2 82 20 127/70 (89) 98 04/21/19 20:00 2.0 04/21/19 20:00 Nasal Cannula 2.0 04/21/19 19:53 95 Nasal Cannula 2.0 28 04/21/19 19:52 82 18 98 Nasal Cannula 2.0 28 79 18 95 04/21/19 18:24 152/59 04/21/19 18:20 98.0 78 20 152/59 (90) 97 04/21/19 16:00 2.0 04/21/19 16:00 92 04/21/19 16:00 98.3 75 20 153/87 (109) 98 04/21/19 16:00 Nasal Cannula 2.0 04/21/19 15:36 84 18 100 Nasal Cannula 2.0 28 89 18 98 04/21/19 12:03 81 157/82 04/21/19 12:02 81 157/82 04/21/19 12:02 157/82 04/21/19 12:00 2.0 04/21/19 12:00 Nasal Cannula 2.0 04/21/19 11:58 97.2 81 20 157/82 (107) 100 04/21/19 11:42 77 18 99 Nasal Cannula 2.0 28 75 18 100 04/21/19 11:29 79 04/21/19 08:00 79 04/21/19 08:00 2.0 04/21/19 08:00 Nasal Cannula 2.0 04/21/19 08:00 98.0 80 19 164/81 (108) 96 80 04/21/19 07:59 97 Nasal Cannula 2.0 28 04/21/19 07:59 79 18 99 Nasal Cannula 2.0 28 77 18 97 04/21/19 04:00 Nasal Cannula 2.0 04/21/19 04:00 97.9 77 20 150/70 (96) 100 77 04/21/19 04:00 2.0 04/21/19 03:23 81 04/21/19 02:46 83 19 97 Facial 30 04/21/19 02:20 77 18 99 Bi-Pap 30 75 18 97 04/21/19 00:37 87 18 99 Facial 30 04/21/19 00:34 160/70 04/21/19 00:00 Bi-pap 04/21/19 00:00 30 04/21/19 00:00 97.5 84 20 160/70 (100) 98 84 04/21/19 00:00 86 04/20/19 23:17 89 23 98 Facial 30 04/20/19 23:03 80 18 99 Nasal Cannula 2.0 28 77 18 98 04/20/19 21:00 81 157/94 04/20/19 20:00 82 04/20/19 20:00 97.7 81 20 157/94 (115) 100 82 04/20/19 20:00 2.0 04/20/19 20:00 Nasal Cannula 2.0 04/20/19 19:13 79 18 100 Nasal Cannula 2.0 28 82 18 99 04/20/19 19:12 99 Nasal Cannula 2.0 28 04/20/19 16:00 98.2 82 18 148/80 (102) 98 82 04/20/19 16:00 2.0 04/20/19 16:00 Nasal Cannula 2.0 04/20/19 16:00 90 04/20/19 15:56 84 20 100 Nasal Cannula 2.0 28 04/20/19 15:46 82 20 95 04/20/19 12:00 95 04/20/19 12:00 Nasal Cannula 2.0 04/20/19 12:00 98.0 90 18 150/82 (104) 98 90 04/20/19 12:00 2.0 04/20/19 11:48 81 20 100 Nasal Cannula 2.0 28 04/20/19 11:38 78 18 96 04/20/19 08:00 97.2 70 18 151/81 (104) 98 70 04/20/19 08:00 Nasal Cannula 2.0 04/20/19 08:00 2.0 04/20/19 07:40 90 04/20/19 07:18 99 Nasal Cannula 2.0 28 04/20/19 07:00 76 20 100 Nasal Cannula 2.0 28 04/20/19 06:50 72 20 97 Intake and Output 04/21/19 04/22/19 18:59 06:59 Intake Total 3480 ml Output Total 3001 ml Balance 479 ml Intake Oral 480 ml Hemodialysis 3000 ml Output Urine Total 1 ml Hemodialysis UF 3000 ml Labs Test 04/20/19 03:11 04/21/19 03:20 04/22/19 04:49 White Blood Count 3.1 K/UL (4.8-10.8) 3.4 K/UL (4.8-10.8) 3.9 K/UL (4.8-10.8) Red Blood Count 3.13 M/UL (4.20-5.40) 3.02 M/UL (4.20-5.40) 3.18 M/UL (4.20-5.40) Hemoglobin 9.6 G/DL (12.0-16.0) 9.2 G/DL (12.0-16.0) 9.7 G/DL (12.0-16.0) Hematocrit 29.3 % (37.0-47.0) 28.4 % (37.0-47.0) 29.7 % (37.0-47.0) Mean Corpuscular Volume 94 FL (80-99) 94 FL (80-99) 94 FL (80-99) Mean Corpuscular Hemoglobin 30.5 PG (27.0-31.0) 30.5 PG (27.0-31.0) 30.5 PG (27.0-31.0) Mean Corpuscular Hemoglobin Concent 32.6 G/DL (32.0-36.0) 32.5 G/DL (32.0-36.0) 32.6 G/DL (32.0-36.0) Red Cell Distribution Width 14.5 % (11.6-14.8) 14.0 % (11.6-14.8) 13.9 % (11.6-14.8) Platelet Count 174 K/UL (150-450) 170 K/UL (150-450) 196 K/UL (150-450) Mean Platelet Volume 6.2 FL (6.5-10.1) 6.4 FL (6.5-10.1) 6.3 FL (6.5-10.1) Neutrophils (%) (Auto) % (45.0-75.0) % (45.0-75.0) 73.4 % (45.0-75.0) Lymphocytes (%) (Auto) % (20.0-45.0) % (20.0-45.0) 11.9 % (20.0-45.0) Monocytes (%) (Auto) % (1.0-10.0) % (1.0-10.0) 8.1 % (1.0-10.0) Eosinophils (%) (Auto) % (0.0-3.0) % (0.0-3.0) 4.7 % (0.0-3.0) Basophils (%) (Auto) % (0.0-2.0) % (0.0-2.0) 1.9 % (0.0-2.0) Sodium Level 141 MMOL/L (136-145) 138 MMOL/L (136-145) Potassium Level 3.6 MMOL/L (3.5-5.1) 3.6 MMOL/L (3.5-5.1) Chloride Level 100 MMOL/L (98-107) 98 MMOL/L (98-107) Carbon Dioxide Level 36 MMOL/L (21-32) 32 MMOL/L (21-32) Anion Gap 5 mmol/L (5-15) 8 mmol/L (5-15) Blood Urea Nitrogen 34 mg/dL (7-18) 46 mg/dL (7-18) Creatinine 5.0 MG/DL (0.55-1.30) 5.8 MG/DL (0.55-1.30) Estimat Glomerular Filtration Rate 8.5 mL/min (>60) 7.2 mL/min (>60) Glucose Level 51 MG/DL (74-106) 178 MG/DL (74-106) Calcium Level 7.3 MG/DL (8.5-10.1) 7.4 MG/DL (8.5-10.1) Phosphorus Level 4.0 MG/DL (2.5-4.9) 4.6 MG/DL (2.5-4.9) Magnesium Level 2.0 MG/DL (1.8-2.4) Total Bilirubin 0.7 MG/DL (0.2-1.0) 0.6 MG/DL (0.2-1.0) Aspartate Amino Transf (AST/SGOT) 13 U/L (15-37) 13 U/L (15-37) Alanine Aminotransferase (ALT/SGPT) < 6 U/L (12-78) 6 U/L (12-78) Alkaline Phosphatase 95 U/L (46-116) 124 U/L (46-116) C-Reactive Protein, Quantitative 1.5 mg/dL (0.00-0.90) Total Protein 7.1 G/DL (6.4-8.2) 7.2 G/DL (6.4-8.2) Albumin 3.5 G/DL (3.4-5.0) 3.5 G/DL (3.4-5.0) Globulin 3.6 g/dL 3.7 g/dL Albumin/Globulin Ratio 1.0 (1.0-2.7) 0.9 (1.0-2.7) Differential Total Cells Counted 100 Neutrophils % (Manual) 71 % (45-75) Lymphocytes % (Manual) 21 % (20-45) Monocytes % (Manual) 6 % (1-10) Eosinophils % (Manual) 2 % (0-3) Basophils % (Manual) 0 % (0-2) Band Neutrophils 0 % (0-8) Platelet Estimate Adequate Platelet Morphology Normal Hypochromasia 1+ Pro-B-Type Natriuretic Peptide > 91750 pg/mL (0-125) Height (Feet): 4 Height (Inches): 11.00 Weight (Pounds): 169 Objective VITAL SIGNS: Reviewed. GENERAL: No distress. PULMONARY: Decreased breath sounds. ++ BIPAP CARDIOVASCULAR: Regular rate. No S3 or S4. ABDOMEN: Soft, nontender, and nondistended. EXTREMITIES: No cyanosis, swelling, or edema. ++ Left AVS Carl Daniels MD Apr 22, 2019 06:03
[2019-04-22 06:25] LABS: ALANINE AMINOTRANSFERASE 11 U/L (12-78); ALBUMIN 3.6 G/DL (3.4-5.0); ALBUMIN/GLOBULIN RATIO 0.9 (1.0-2.7); ALKALINE PHOSPHATASE 122 U/L (46-116); ANION GAP 8 mmol/L (5-15); ASPARTATE AMINO TRANSFERASE 16 U/L (15-37); BILIRUBIN,TOTAL 0.7 MG/DL (0.2-1.0); BLOOD UREA NITROGEN 37 mg/dL (7-18); CALCIUM 7.4 MG/DL (8.5-10.1); CARBON DIOXIDE 30 MMOL/L (21-32); CHLORIDE 97 MMOL/L (98-107); CREATININE 4.9 MG/DL (0.55-1.30); PHOSPHORUS 4.2 MG/DL (2.5-4.9); POTASSIUM 4.1 MMOL/L (3.5-5.1); SODIUM 135 MMOL/L (136-145)
--- NOTE | 2019-04-22 07:14 | NUR ---
NURSE NOTES: Patient is awake, alert x4, sitting and eating breakfast; on nasal cannula 2 Liter, no sing of distress and shortness of breath; no sing of chest pain; Hemodialysis port on Left Upper Hand, patient dialyzed 04/21/2019; IV RH 22G flushes well; BiPAP machine at the bed side, patient use it PRN at night; patient ambulatory; patient stated to PM nurse that she had vaginal bleeding, I ask patient if she still had it, patient stated she doesn't have vaginal bleeding any more, and will keep monitoring; side rails up x2, breaks engaged, bed at lowest position; will check blood sugar as scheduled; call light within reach; will keep monitoring.
--- NOTE | 2019-04-22 07:17 | NUR ---
HAND-OFF: Report given to SIDNEY Owusu.
--- NOTE | 2019-04-22 07:59 | NUR ---
NURSE NOTES: I communicated MD Herbert, if MD can clear patient for discharge with respect to pulmonology; stated that waiting for some labs and will let me know later. will follow up on that.
[2019-04-22 09:00] VITALS: BP 151/88
[2019-04-22] MEDS: Heparin 5000 units/ml inj SUBQ SCH ×3 (09:00→21:16)
[2019-04-22] MEDS: Aspirin Baby 81mg ORAL SCH (09:07)
[2019-04-22] MEDS: Docusate 100mg cap ORAL SCH ×3 (09:07→17:57)
[2019-04-22] MEDS: Metoprolol Tartrate 50mg tab ORAL SCH (09:08)
[2019-04-22] MEDS: Sennosides 8.6mg tab ORAL SCH (09:08)
[2019-04-22] MEDS: Lisinopril 20mg tab ORAL SCH (09:08)
--- NOTE | 2019-04-22 09:19 | NUR ---
NURSE NOTES: Patient had a vaginal bleeding last night, RN hold Heparin.
--- NOTE | 2019-04-22 10:00 | Nephrology Progress Note ---
Assessment/Plan Problem List: (1) ESRD (end stage renal disease) (2) Respiratory distress (3) Anemia in chronic kidney disease (CKD) (4) Diabetic nephropathy with proteinuria (5) Hypertensive kidney disease Assessment ESRD Pulm EDema DM HTN Anemia Low B12 and Iron by history CAD . Plan BP meds- adjusted stop lisinopril due to cough- start Rocephin one dose solumedrol- one time dialysis today CXR in am 2D Echo Ej Fx 50 % Pulm support per orders HD today UF DONE_ ( HD not done yesterday 04/20 due to unavailability of vendor) add levemir HS Subjective ROS Limited/Unobtainable: No Constitutional: Reports: malaise, other - coughing Objective Objective Last 24 Hour Vital Signs Date Time Temp Pulse Resp B/P (MAP) Pulse Ox O2 Delivery O2 Flow Rate FiO2 04/22/19 09:08 93 151/88 04/22/19 09:08 151/88 04/22/19 09:08 93 151/88 04/22/19 09:00 98.8 93 20 151/88 (109) 98 04/22/19 08:04 96 Nasal Cannula 2.0 28 04/22/19 08:02 92 18 99 Nasal Cannula 2.0 28 90 18 96 04/22/19 04:34 89 22 97 Facial 30 04/22/19 04:00 30 04/22/19 02:44 90 18 100 Nasal Cannula 2.0 28 95 18 98 04/22/19 00:56 82 20 99 Facial 30 04/21/19 22:58 89 18 98 Facial 30 04/21/19 22:31 85 18 99 Nasal Cannula 2.0 28 82 18 97 04/21/19 20:36 82 127/70 04/21/19 20:00 99.2 82 20 127/70 (89) 98 04/21/19 20:00 2.0 04/21/19 20:00 Nasal Cannula 2.0 04/21/19 19:53 95 Nasal Cannula 2.0 28 04/21/19 19:52 82 18 98 Nasal Cannula 2.0 28 79 18 95 04/21/19 18:24 152/59 04/21/19 18:20 98.0 78 20 152/59 (90) 97 04/21/19 16:00 2.0 04/21/19 16:00 92 04/21/19 16:00 98.3 75 20 153/87 (109) 98 04/21/19 16:00 Nasal Cannula 2.0 04/21/19 15:36 84 18 100 Nasal Cannula 2.0 28 89 18 98 04/21/19 12:03 81 157/82 04/21/19 12:02 81 157/82 04/21/19 12:02 157/82 04/21/19 12:00 2.0 04/21/19 12:00 Nasal Cannula 2.0 04/21/19 11:58 97.2 81 20 157/82 (107) 100 04/21/19 11:42 77 18 99 Nasal Cannula 2.0 28 75 18 100 04/21/19 11:29 79 Intake and Output 04/21/19 04/22/19 19:00 07:00 Intake Total 3480 ml Output Total 3001 ml Balance 479 ml Intake Oral 480 ml Hemodialysis 3000 ml Output Urine Total 1 ml Hemodialysis UF 3000 ml Laboratory Tests 04/22/19 04:49: White Blood Count 3.9L, Red Blood Count 3.18L, Hemoglobin 9.7L, Hematocrit 29.7L , Mean Corpuscular Volume 94, Mean Corpuscular Hemoglobin 30.5, Mean Corpuscular Hemoglobin Concent 32.6, Red Cell Distribution Width 13.9, Platelet Count 196, Mean Platelet Volume 6.3L, Neutrophils (%) (Auto) 73.4, Lymphocytes ( %) (Auto) 11.9L, Monocytes (%) (Auto) 8.1, Eosinophils (%) (Auto) 4.7H, Basophils (%) (Auto) 1.9, Sodium Level 135L, Potassium Level 4.1, Chloride Level 97L, Carbon Dioxide Level 30, Anion Gap 8, Blood Urea Nitrogen 37H, Creatinine 4.9H, Estimat Glomerular Filtration Rate 8.8, Glucose Level 165H, Uric Acid 4.8, Calcium Level 7.4L, Phosphorus Level 4.2, Total Bilirubin 0.7, Aspartate Amino Transf (AST/SGOT) 16, Alanine Aminotransferase (ALT/SGPT) 11L, Alkaline Phosphatase 122H, C-Reactive Protein, Quantitative 1.6H, Pro-B-Type Natriuretic Peptide > 46879K, Total Protein 7.5, Albumin 3.6, Globulin 3.9, Albumin/Globulin Ratio 0.9L Height (Feet): 4 Height (Inches): 11.00 Weight (Pounds): 169 General Appearance: mild distress Cardiovascular: normal rate, tachycardia Respiratory/Chest: decreased breath sounds Abdomen: distended Francis Falk MD Apr 22, 2019 10:00
--- NOTE | 2019-04-22 10:00 | NUR ---
NURSE NOTES: I received an order from MD Santacruz that patient gonna have dialysis today with [facility]; I called to [facility] spoke to Charlee to schedule a dialysis schedule for today; waiting a call back from dialysis nurse to confirm the dialysis schedule.
--- NOTE | 2019-04-22 10:07 | NUR ---
NURSE NOTES: Dr Daniel is aware that patient gonna have dialysis today and also MD Santacruz order XRay of chest 1V for tomorrow.
--- NOTE | 2019-04-22 10:27 | NUR ---
NURSE NOTES: I communicated MD Briseno to get clearance to discharge patient; said gonna come to see patient.
[2019-04-22] MEDS: cefTRIAXone 1 GM in D5W 55 ML IVPB SCH (11:00)
[2019-04-22] MEDS ORDERED: Solu-MEDROL 125mg Inj IVP ONE (11:00)
[2019-04-22] MEDS: Carvedilol 25mg Tab ORAL SCH ×2 (11:00→21:00)
--- NOTE | 2019-04-22 11:27 | NUR ---
RD ASSESSMENT & RECOMMENDATIONS SEE CARE ACTIVITY FOR COMPLETE ASSESSMENT DAILY ESTIMATED NEEDS: Needs based on ESRD on HD, DM 52.7 adj 30-35 kcals/kg [id number] total kcals 1.2-1.8 g protein/kg 63-95 g total protein Fluid per MD, on HD NUTRITION DIAGNOSIS: 1) Increased kcal and protein needs R/T renal dysfunction as evidenced by pt w/ESRD on HD. (CURRENT DIET: Renal, CCHO MED, SOFT EASY CHEW) PO DIET RECOMMENDATIONS-->> CCHO LOW, RENAL/ TEXTURE TOLERATED ADDITIONAL RECOMMENDATIONS: 1) Standing daily wt, as tolerated + Daily wts for HD 2) Monitor for continued tolerance to diet 3) HIGH protein snacks in b/w meals . .
[2019-04-22 12:00] VITALS: BP 123/74
--- NOTE | 2019-04-22 12:02 | Infectious Diseases Prog Note ---
Assessment/Plan Assessment/Plan IMPRESSION: 1. Dyspnea, likely secondary to congestive hear failure. 2. Hypoxemic respiratory failure. 3. End-stage renal disease, on hemodialysis. 4. Diabetes mellitus. 5. Diastolic CHF. 6. Aortic stenosis. 7. Hypertension. 8. Anemia. 9. Leukopenia. RECOMMENDATIONS: 1. Continue Rocephin , add Zithromax. 2. Can be discharge with PO Zithromax Subjective ROS Limited/Unobtainable: Yes Respiratory: Reports: dry cough Gastrointestinal/Abdominal: Reports: no symptoms Genitourinary: Reports: no symptoms Allergies: Coded Allergies: No Known Allergies (Unverified , 05/12/17) Objective Vital Signs Last 24 Hour Vital Signs Date Time Temp Pulse Resp B/P (MAP) Pulse Ox O2 Delivery O2 Flow Rate FiO2 04/22/19 11:10 89 18 100 Nasal Cannula 2.0 28 87 18 97 04/22/19 09:08 93 151/88 04/22/19 09:08 151/88 04/22/19 09:08 93 151/88 04/22/19 09:00 98.8 93 20 151/88 (109) 98 04/22/19 08:04 96 Nasal Cannula 2.0 28 04/22/19 08:02 92 18 99 Nasal Cannula 2.0 28 90 18 96 04/22/19 08:00 2.0 04/22/19 04:34 89 22 97 Facial 30 04/22/19 04:00 30 04/22/19 02:44 90 18 100 Nasal Cannula 2.0 28 95 18 98 04/22/19 00:56 82 20 99 Facial 30 04/21/19 22:58 89 18 98 Facial 30 04/21/19 22:31 85 18 99 Nasal Cannula 2.0 28 82 18 97 04/21/19 20:36 82 127/70 04/21/19 20:00 99.2 82 20 127/70 (89) 98 04/21/19 20:00 2.0 04/21/19 20:00 Nasal Cannula 2.0 04/21/19 19:53 95 Nasal Cannula 2.0 28 04/21/19 19:52 82 18 98 Nasal Cannula 2.0 28 79 18 95 04/21/19 18:24 152/59 04/21/19 18:20 98.0 78 20 152/59 (90) 97 04/21/19 16:00 2.0 04/21/19 16:00 92 04/21/19 16:00 98.3 75 20 153/87 (109) 98 04/21/19 16:00 Nasal Cannula 2.0 04/21/19 15:36 84 18 100 Nasal Cannula 2.0 28 89 18 98 04/21/19 12:03 81 157/82 04/21/19 12:02 81 157/82 04/21/19 12:02 157/82 Height (Feet): 4 Height (Inches): 11.00 Weight (Pounds): 176 General Appearance: no acute distress HEENT: mucous membranes moist Respiratory/Chest: lungs clear Cardiovascular: normal rate Abdomen: soft, non tender Extremities: no edema Neurologic/Psychiatric: alert, responsive Laboratory Tests Test 04/22/19 04:49 White Blood Count 3.9 K/UL (4.8-10.8) L Red Blood Count 3.18 M/UL (4.20-5.40) L Hemoglobin 9.7 G/DL (12.0-16.0) L Hematocrit 29.7 % (37.0-47.0) L Mean Corpuscular Volume 94 FL (80-99) Mean Corpuscular Hemoglobin 30.5 PG (27.0-31.0) Mean Corpuscular Hemoglobin Concent 32.6 G/DL (32.0-36.0) Red Cell Distribution Width 13.9 % (11.6-14.8) Platelet Count 196 K/UL (150-450) Mean Platelet Volume 6.3 FL (6.5-10.1) L Neutrophils (%) (Auto) 73.4 % (45.0-75.0) Lymphocytes (%) (Auto) 11.9 % (20.0-45.0) L Monocytes (%) (Auto) 8.1 % (1.0-10.0) Eosinophils (%) (Auto) 4.7 % (0.0-3.0) H Basophils (%) (Auto) 1.9 % (0.0-2.0) Sodium Level 135 MMOL/L (136-145) L Potassium Level 4.1 MMOL/L (3.5-5.1) Chloride Level 97 MMOL/L (98-107) L Carbon Dioxide Level 30 MMOL/L (21-32) Anion Gap 8 mmol/L (5-15) Blood Urea Nitrogen 37 mg/dL (7-18) H Creatinine 4.9 MG/DL (0.55-1.30) H Estimat Glomerular Filtration Rate 8.8 mL/min (>60) Glucose Level 165 MG/DL (74-106) H Uric Acid 4.8 MG/DL (2.6-7.2) Calcium Level 7.4 MG/DL (8.5-10.1) L Phosphorus Level 4.2 MG/DL (2.5-4.9) Total Bilirubin 0.7 MG/DL (0.2-1.0) Aspartate Amino Transf (AST/SGOT) 16 U/L (15-37) Alanine Aminotransferase (ALT/SGPT) 11 U/L (12-78) L Alkaline Phosphatase 122 U/L (46-116) H C-Reactive Protein, Quantitative 1.6 mg/dL (0.00-0.90) H Pro-B-Type Natriuretic Peptide > 90000 pg/mL (0-125) H Total Protein 7.5 G/DL (6.4-8.2) Albumin 3.6 G/DL (3.4-5.0) Globulin 3.9 g/dL Albumin/Globulin Ratio 0.9 (1.0-2.7) L Hepatitis B Surface Antigen Pending Current Medications Medications (Trade) Dose Ordered Sig/Toya Route PRN Reason Start Time Stop Time Status Last Admin Dose Admin Acetaminophen (Tylenol) 500 mg Q4H PRN ORAL Mild Pain/Temp > 100.5 04/21/19 18:03 05/21/19 18:02 Albuterol/ Ipratropium (Albuterol/ Ipratropium) 3 ml Q4HRT HHN 04/21/19 19:00 04/23/19 18:59 04/22/19 11:08 Amlodipine Besylate (Norvasc) 10 mg DAILY ORAL 04/22/19 09:00 05/19/19 08:59 04/22/19 09:08 Aspirin (ASA) 81 mg DAILY ORAL 04/22/19 09:00 05/19/19 13:36 04/22/19 09:07 Atorvastatin Calcium (Lipitor) 10 mg BEDTIME ORAL 04/21/19 21:00 05/18/19 20:59 04/21/19 20:36 Carvedilol (Coreg) 25 mg EVERY 12 HOURS ORAL 04/22/19 11:00 05/22/19 10:59 Ceftriaxone Sodium 1 gm/ Dextrose 55 ml @ 110 mls/hr Q24H IVPB 04/22/19 11:00 04/29/19 10:59 Dextrose (Dextrose 50%) 25 ml Q30M PRN IV Hypoglycemia 04/21/19 18:15 05/18/19 15:44 Dextrose (Dextrose 50%) 50 ml Q30M PRN IV Hypoglycemia 04/21/19 18:15 05/18/19 15:44 Docusate Sodium (Colace) 100 mg TID ORAL 04/21/19 18:05 05/21/19 18:04 04/22/19 09:07 Epoetin Panchito (Epoetin Panchito(ESRD on dialysis)) 3,000 unit THU-THU-THU SUBQ 04/22/19 21:00 05/20/19 20:59 Folic Acid (Folate) 3 mg DAILY ORAL 04/22/19 09:00 05/19/19 08:59 04/22/19 09:08 Gabapentin (Neurontin) 300 mg Q8HR ORAL 04/21/19 22:00 05/18/19 16:59 04/22/19 05:35 Guaifenesin/ Dextromethorphan (Robitussin DM Syrup) 5 ml Q6H PRN ORAL For Cough 04/21/19 18:03 05/21/19 18:02 Heparin Sodium (Porcine) (Heparin 5000 units/ml) 5,000 units EVERY 12 HOURS SUBQ 04/21/19 21:00 05/18/19 20:59 04/21/19 20:38 Hydralazine HCl (Apresoline) 25 mg Q4H PRN ORAL prn bp over 160 syst 04/21/19 18:04 05/21/19 18:03 Hydralazine HCl (Apresoline) 50 mg Q8HR ORAL 04/22/19 14:00 05/22/19 13:59 Insulin Aspart (NovoLOG) BEFORE MEALS AND HS SUBQ 04/21/19 21:00 05/18/19 16:29 04/22/19 05:37 Insulin Detemir (Levemir) 12 units BEDTIME SUBQ 04/22/19 21:00 05/19/19 20:59 Levothyroxine Sodium (Synthroid) 100 mcg DAILY@0630 ORAL 04/22/19 06:30 05/19/19 06:29 04/22/19 05:35 Metoclopramide HCl (Reglan) 10 mg Q6H PRN IVP Nausea & Vomiting 04/21/19 18:04 05/21/19 18:03 Pantoprazole (Protonix) 40 mg EVERY 12 HOURS ORAL 04/21/19 21:00 05/18/19 20:59 04/22/19 09:08 Sennosides (Senokot) 8.6 mg DAILY ORAL 04/22/19 09:00 05/19/19 08:59 04/22/19 09:08 Tramadol HCl (Ultram) 50 mg Q6H PRN ORAL pain 6 - 10 04/21/19 18:05 04/28/19 18:04 Kalin Briseno MD Apr 22, 2019 12:02
[2019-04-22] MEDS ORDERED: Azithromycin 250mg tab ORAL SCH (12:15)
--- NOTE | 2019-04-22 12:17 | NUR ---
CASE MANAGEMENT:REVIEW 04/22/19 SI: RESPIRATORY DISTRESS PULMONARY EDEMA. ESRD ON HD 8EXCESSIVE COUGHING ~ DC LISINOPRIL 98.3 93 20 151/88 98% ON 2L/NC H/H-9.7/29.7 BUN+37 CR+4.9 IS: IV SOLUMEDROL X1 IV ROCEPHIN Q24 AZITHROMYCIN PO QD EPOETIN SQ MWF LEVEMIR SQ QHS HYDRALAZINE PO Q8HRS COREG PO Q12 NORVASC PO QD ASA PO QD DUONEB HHN Q4HRS RTC : MED/SURG STATUS 4 EAST DCP: PLAN IS TO RETURN HOME AND CONTINUE WITH OUTPT DIALYSIS
[2019-04-22] MEDS: HydrALAZINE 50mg tab ORAL SCH ×2 (13:16→23:04)
[2019-04-22] MEDS ORDERED: HydrALAZINE 50mg tab ORAL SCH (14:00)
[2019-04-22] MEDS ORDERED: NS 275ml ONE (14:36)
[2019-04-22] MEDS ORDERED: 1/2 NS 1000ml IV ONE (14:36)
[2019-04-22] MEDS ORDERED: Tubing IV Secondary IV ONE (14:36)
--- NOTE | 2019-04-22 15:29 | NUR ---
NURSE NOTES: There is an ABG order for today; RT is aware.
[2019-04-22 16:00] VITALS: BP 132/87
--- NOTE | 2019-04-22 19:00 | NUR ---
NURSE NOTES: Hemodialysis nurse reported 3 Liters removed.
--- NOTE | 2019-04-22 19:25 | NUR ---
NURSE NOTES: Received pt resting in bed. AAO x 4, NC 2L / min. BiPAP used at night time for RRN. AV shunt on [place] is thrill and bruit. No IV access noted. Will insert new IV. No c/o pain. No acute distress noted at this time. Bed locked, lowest position, alarm on, side rails up x 2, call light within reach. Will continue to monitor.
--- NOTE | 2019-04-22 19:29 | NUR ---
HAND-OFF: Report given to SIDNEY Sesay.
[2019-04-22 20:00] VITALS: BP 111/76
--- NOTE | 2019-04-22 21:11 | General Progress Note ---
Assessment/Plan Problem List: (1) Pulmonary congestion ICD Codes: R09.89 - Other specified symptoms and signs involving the circulatory and respiratory systems SNOMED: 73400775 (2) Pneumonia ICD Codes: J18.9 - Pneumonia, unspecified organism SNOMED: 672234421 (3) Renal failure ICD Codes: N19 - Unspecified kidney failure SNOMED: 73484522 (4) ESRD (end stage renal disease) ICD Codes: N18.6 - End stage renal disease SNOMED: 59950373 (5) Dyspnea ICD Codes: R06.00 - Dyspnea, unspecified SNOMED: 472266074 (6) Anemia in chronic kidney disease (CKD) ICD Codes: N18.9 - Chronic kidney disease, unspecified; D63.1 - Anemia in chronic kidney disease SNOMED: 391887296 Status: progressing Assessment/Plan: renal didnt clear the pt for dc afebrile pulmonary congestion r/o pna dyspnea esrd on hd needs more diaylsis Subjective ROS Limited/Unobtainable: Yes Allergies: Coded Allergies: No Known Allergies (Unverified , 05/12/17) Objective Last 24 Hour Vital Signs Date Time Temp Pulse Resp B/P (MAP) Pulse Ox O2 Delivery O2 Flow Rate FiO2 04/22/19 21:00 77 111/76 04/22/19 20:00 98.5 77 18 111/76 (88) 98 04/22/19 19:58 99 Nasal Cannula 2.0 28 04/22/19 19:47 77 18 99 Nasal Cannula 2.0 28 86 18 94 04/22/19 16:00 98.7 74 20 132/87 (102) 96 04/22/19 16:00 2.0 04/22/19 15:32 86 18 98 Room Air 21 81 18 92 04/22/19 13:16 123/74 04/22/19 12:00 2.0 04/22/19 12:00 98.5 91 20 123/74 (90) 97 04/22/19 11:10 89 18 100 Nasal Cannula 2.0 28 87 18 97 04/22/19 11:00 89 151/88 04/22/19 09:08 93 151/88 04/22/19 09:08 151/88 04/22/19 09:08 93 151/88 04/22/19 09:00 98.8 93 20 151/88 (109) 98 9/20/19 08:04 96 Nasal Cannula 2.0 28 04/22/19 08:02 92 18 99 Nasal Cannula 2.0 28 90 18 96 04/22/19 08:00 2.0 04/22/19 04:34 89 22 97 Facial 30 04/22/19 04:00 30 04/22/19 02:44 90 18 100 Nasal Cannula 2.0 28 95 18 98 04/22/19 00:56 82 20 99 Facial 30 04/21/19 22:58 89 18 98 Facial 30 04/21/19 22:31 85 18 99 Nasal Cannula 2.0 28 82 18 97 Intake and Output 04/21/19 04/22/19 19:00 07:00 Intake Total 3480 ml Output Total 3001 ml Balance 479 ml Intake Oral 480 ml Hemodialysis 3000 ml Output Urine Total 1 ml Hemodialysis UF 3000 ml Laboratory Tests 04/22/19 04:49: White Blood Count 3.9L, Red Blood Count 3.18L, Hemoglobin 9.7L, Hematocrit 29.7L , Mean Corpuscular Volume 94, Mean Corpuscular Hemoglobin 30.5, Mean Corpuscular Hemoglobin Concent 32.6, Red Cell Distribution Width 13.9, Platelet Count 196, Mean Platelet Volume 6.3L, Neutrophils (%) (Auto) 73.4, Lymphocytes ( %) (Auto) 11.9L, Monocytes (%) (Auto) 8.1, Eosinophils (%) (Auto) 4.7H, Basophils (%) (Auto) 1.9, Sodium Level 135L, Potassium Level 4.1, Chloride Level 97L, Carbon Dioxide Level 30, Anion Gap 8, Blood Urea Nitrogen 37H, Creatinine 4.9H, Estimat Glomerular Filtration Rate 8.8, Glucose Level 165H, Uric Acid 4.8, Calcium Level 7.4L, Phosphorus Level 4.2, Total Bilirubin 0.7, Aspartate Amino Transf (AST/SGOT) 16, Alanine Aminotransferase (ALT/SGPT) 11L, Alkaline Phosphatase 122H, C-Reactive Protein, Quantitative 1.6H, Pro-B-Type Natriuretic Peptide > 43354M, Total Protein 7.5, Albumin 3.6, Globulin 3.9, Albumin/Globulin Ratio 0.9L, Hepatitis B Surface Antigen [Pending] 04/22/19 15:15: Arterial Blood pH 7.392, Arterial Blood Partial Pressure CO2 39.4, Arterial Blood Partial Pressure O2 91.1, Arterial Blood HCO3 23.4, Arterial Blood Oxygen Saturation 96.9, Arterial Blood Base Excess -1.3, Faheem Test Positive Height (Feet): 4 Height (Inches): 11.00 Weight (Pounds): 176 Cardiovascular: normal rate Respiratory/Chest: lungs clear Abdomen: soft Makenna Daniel MD Apr 22, 2019 21:11
[2019-04-22] MEDS: Epoetin Alfa-EPBX(ESRD on dialysis)3000 units/ml vial SUBQ SCH (21:14)
[2019-04-22] MEDS: Levemir Flexpen SUBQ SCH (21:18)
[2019-04-22 23:00] VITALS: BP 170/77
--- NOTE | 2019-04-22 23:19 | Pulmonology Progress Note ---
Assessment/Plan Assessment/Plan Pulmonary Progress Note HPI Patient is a 69 year old woman presenting with shortness of breath/cough ongoing for several days, patient has CKD, HTN, DM, CAD, Asthma, receives dialysis on Thursday and Thursday No current SOB, she denies any fever, no nausea, vomiting or diarrhea, has fatigue and malaise, no chest pain. Adequate PaO2 on RA Allergies: No Known Allergies Past Medical History: CKD on HD, HTN, DM, Asthma, previous CAD All Other Systems: negative except mentioned in HPI Physical Exam Vital Signs Noted General Appearance: no distress on BiPAP Head: normocephalic, atraumatic Eyes: bilateral eye PERRL, bilateral eye EOMI ENT: moist mm Neck: no LN Respiratory: no retraction, no accessory muscle use, CTAB Cardiovascular: normal peripheral pulses, regular rate, rhythm, no JVD, no murmur, normal hS1/HS2 Gastrointestinal: normal bowel sounds, non tender, soft, no mass, no organomegaly, non-distended, no guarding, no hernia, no pulsatile mass, no rebound Genitourinary: no CVA tenderness Musculoskeletal: normal inspection - AV left arm Neurologic: oriented x3, responsive, 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, motor strength/ tone normal, sensory intact Skin: no rash, no edema Impression: Respiratory distress improved Pulmonary congestion on CXR 04/20 ESRD (end stage renal disease) on HD Hypertension Diabetes CAD Plan: HD per Renal NC O2 PRN HHN PRN Monitor labs PPX ISS VQ low probability Adequate RA O2 saturations Labs noted Chest X-Ray: no consolidation, no pneumothorax, other - pulmonary congestion VQ low probability Subjective ROS Limited/Unobtainable: No Allergies: Coded Allergies: No Known Allergies (Unverified , 05/12/17) Objective Last 24 Hour Vital Signs Date Time Temp Pulse Resp B/P (MAP) Pulse Ox O2 Delivery O2 Flow Rate FiO2 04/22/19 23:04 170/77 04/22/19 23:00 95 170/77 (108) 04/22/19 21:00 77 111/76 04/22/19 21:00 Nasal Cannula 2.0 04/22/19 20:00 2.0 04/22/19 20:00 98.5 77 18 111/76 (88) 98 04/22/19 19:58 99 Nasal Cannula 2.0 28 04/22/19 19:47 77 18 99 Nasal Cannula 2.0 28 86 18 94 04/22/19 16:00 98.7 74 20 132/87 (102) 96 04/22/19 16:00 2.0 04/22/19 15:32 86 18 98 Room Air 21 81 18 92 04/22/19 13:16 123/74 04/22/19 12:00 2.0 04/22/19 12:00 98.5 91 20 123/74 (90) 97 04/22/19 11:10 89 18 100 Nasal Cannula 2.0 28 87 18 97 04/22/19 11:00 89 151/88 04/22/19 09:08 93 151/88 04/22/19 09:08 151/88 04/22/19 09:08 93 151/88 04/22/19 09:00 98.8 93 20 151/88 (109) 98 04/22/19 08:04 96 Nasal Cannula 2.0 28 04/22/19 08:02 92 18 99 Nasal Cannula 2.0 28 90 18 96 04/22/19 08:00 2.0 04/22/19 04:34 89 22 97 Facial 30 04/22/19 04:00 30 04/22/19 02:44 90 18 100 Nasal Cannula 2.0 28 95 18 98 04/22/19 00:56 82 20 99 Facial 30 Intake and Output 04/21/19 04/22/19 19:00 07:00 Intake Total 3480 ml Output Total 3001 ml Balance 479 ml Intake Oral 480 ml Hemodialysis 3000 ml Output Urine Total 1 ml Hemodialysis UF 3000 ml Laboratory Tests 04/22/19 04:49: White Blood Count 3.9L, Red Blood Count 3.18L, Hemoglobin 9.7L, Hematocrit 29.7L , Mean Corpuscular Volume 94, Mean Corpuscular Hemoglobin 30.5, Mean Corpuscular Hemoglobin Concent 32.6, Red Cell Distribution Width 13.9, Platelet Count 196, Mean Platelet Volume 6.3L, Neutrophils (%) (Auto) 73.4, Lymphocytes ( %) (Auto) 11.9L, Monocytes (%) (Auto) 8.1, Eosinophils (%) (Auto) 4.7H, Basophils (%) (Auto) 1.9, Sodium Level 135L, Potassium Level 4.1, Chloride Level 97L, Carbon Dioxide Level 30, Anion Gap 8, Blood Urea Nitrogen 37H, Creatinine 4.9H, Estimat Glomerular Filtration Rate 8.8, Glucose Level 165H, Uric Acid 4.8, Calcium Level 7.4L, Phosphorus Level 4.2, Total Bilirubin 0.7, Aspartate Amino Transf (AST/SGOT) 16, Alanine Aminotransferase (ALT/SGPT) 11L, Alkaline Phosphatase 122H, C-Reactive Protein, Quantitative 1.6H, Pro-B-Type Natriuretic Peptide > 71836T, Total Protein 7.5, Albumin 3.6, Globulin 3.9, Albumin/Globulin Ratio 0.9L, Hepatitis B Surface Antigen [Pending] 04/22/19 15:15: Arterial Blood pH 7.392, Arterial Blood Partial Pressure CO2 39.4, Arterial Blood Partial Pressure O2 91.1, Arterial Blood HCO3 23.4, Arterial Blood Oxygen Saturation 96.9, Arterial Blood Base Excess -1.3, Faheem Test Positive Current Medications Medications (Trade) Dose Ordered Sig/Toya Route PRN Reason Start Time Stop Time Status Last Admin Dose Admin Acetaminophen (Tylenol) 500 mg Q4H PRN ORAL Mild Pain/Temp > 100.5 04/21/19 18:03 05/21/19 18:02 Albuterol/ Ipratropium (Albuterol/ Ipratropium) 3 ml Q4HRT HHN 04/21/19 19:00 04/23/19 18:59 04/22/19 19:47 Amlodipine Besylate (Norvasc) 10 mg DAILY ORAL 04/22/19 09:00 05/19/19 08:59 04/22/19 09:08 Aspirin (ASA) 81 mg DAILY ORAL 04/22/19 09:00 05/19/19 13:36 04/22/19 09:07 Atorvastatin Calcium (Lipitor) 10 mg BEDTIME ORAL 04/21/19 21:00 05/18/19 20:59 04/22/19 21:14 Azithromycin (Zithromax) 250 mg DAILY ORAL 04/23/19 09:00 04/30/19 08:59 Carvedilol (Coreg) 25 mg EVERY 12 HOURS ORAL 04/22/19 11:00 05/22/19 10:59 04/22/19 11:00 Ceftriaxone Sodium 1 gm/ Dextrose 55 ml @ 110 mls/hr Q24H IVPB 04/22/19 11:00 04/29/19 10:59 04/22/19 11:00 Dextrose (Dextrose 50%) 25 ml Q30M PRN IV Hypoglycemia 04/21/19 18:15 05/18/19 15:44 Dextrose (Dextrose 50%) 50 ml Q30M PRN IV Hypoglycemia 04/21/19 18:15 05/18/19 15:44 Docusate Sodium (Colace) 100 mg TID ORAL 04/21/19 18:05 05/21/19 18:04 04/22/19 12:00 Epoetin Panchito (Epoetin Panchito(ESRD on dialysis)) 3,000 unit THU-THU-THU SUBQ 04/22/19 21:00 05/20/19 20:59 04/22/19 21:14 Folic Acid (Folate) 3 mg DAILY ORAL 04/22/19 09:00 05/19/19 08:59 04/22/19 09:08 Gabapentin (Neurontin) 300 mg Q8HR ORAL 04/21/19 22:00 05/18/19 16:59 04/22/19 23:04 Guaifenesin/ Dextromethorphan (Robitussin DM Syrup) 5 ml Q6H PRN ORAL For Cough 04/21/19 18:03 05/21/19 18:02 Heparin Sodium (Porcine) (Heparin 5000 units/ml) 5,000 units EVERY 12 HOURS SUBQ 04/21/19 21:00 05/18/19 20:59 04/22/19 21:16 Hydralazine HCl (Apresoline) 25 mg Q4H PRN ORAL prn bp over 160 syst 04/21/19 18:04 05/21/19 18:03 Hydralazine HCl (Apresoline) 50 mg Q8HR ORAL 04/22/19 14:00 05/22/19 13:59 04/22/19 23:04 Insulin Aspart (NovoLOG) BEFORE MEALS AND HS SUBQ 04/21/19 21:00 05/18/19 16:29 04/22/19 21:18 Insulin Detemir (Levemir) 12 units BEDTIME SUBQ 04/22/19 21:00 05/19/19 20:59 04/22/19 21:18 Levothyroxine Sodium (Synthroid) 100 mcg DAILY@0630 ORAL 04/22/19 06:30 05/19/19 06:29 04/22/19 05:35 Metoclopramide HCl (Reglan) 10 mg Q6H PRN IVP Nausea & Vomiting 04/21/19 18:04 05/21/19 18:03 Pantoprazole (Protonix) 40 mg EVERY 12 HOURS ORAL 04/21/19 21:00 05/18/19 20:59 04/22/19 21:14 Sennosides (Senokot) 8.6 mg DAILY ORAL 04/22/19 09:00 05/19/19 08:59 04/22/19 09:08 Tramadol HCl (Ultram) 50 mg Q6H PRN ORAL pain 6 - 10 04/21/19 18:05 04/28/19 18:04 Brandon Herbert MD Apr 22, 2019 23:19
--- NOTE | 2019-04-22 23:43 | NUR ---
NURSE NOTES: Pt refused BiPaP at night time. Pt stated I couldn't sleep well last night with that.
[2019-04-23] VITALS (8 sets, daily range): BP systolic 115–173; BP diastolic 64–83
[2019-04-23] MEDS: Albuterol/Ipratropium 3ml neb HHN SCH ×4 (03:58→15:09)
[2019-04-23] MEDS: HydrALAZINE 50mg tab ORAL SCH ×3 (05:08→22:06)
[2019-04-23 05:12] LABS: HEMATOCRIT 28.5 % (37.0-47.0); HEMOGLOBIN 9.4 G/DL (12.0-16.0); MEAN CORPUSCULAR VOLUME 93 FL (80-99); PLATELET COUNT 195 K/UL (150-450); RED BLOOD COUNT 3.06 M/UL (4.20-5.40); RED CELL DISTRIBUTION WIDTH 13.9 % (11.6-14.8); WHITE BLOOD COUNT 2.6 K/UL (4.8-10.8)
[2019-04-23 05:34] LABS: ALANINE AMINOTRANSFERASE 11 U/L (12-78); ALBUMIN 3.6 G/DL (3.4-5.0); ALBUMIN/GLOBULIN RATIO 0.9 (1.0-2.7); ALKALINE PHOSPHATASE 130 U/L (46-116); ANION GAP 7 mmol/L (5-15); ASPARTATE AMINO TRANSFERASE 16 U/L (15-37); BILIRUBIN,TOTAL 0.5 MG/DL (0.2-1.0); BLOOD UREA NITROGEN 42 mg/dL (7-18); CARBON DIOXIDE 30 MMOL/L (21-32); CHLORIDE 98 MMOL/L (98-107); CREATININE 4.5 MG/DL (0.55-1.30); POTASSIUM 4.1 MMOL/L (3.5-5.1); SODIUM 135 MMOL/L (136-145)
[2019-04-23] MEDS: NovoLOG Insulin Flexpen SUBQ SCH ×4 (06:04→20:47)
--- NOTE | 2019-04-23 07:25 | NUR ---
HAND-OFF: Report given to SIDNEY Lawson.
--- NOTE | 2019-04-23 07:34 | NUR ---
NURSE NOTES: Received report from SIDNEY Resendiz. Pt sitting at edge of bed, talkative, no complaints of pain, no apparent distress noted, on 2L NC, able to eat breakfast, bed in lowest position, call light within reach.
--- NOTE | 2019-04-23 08:21 | NUR ---
RESPIRATORY NOTE: pt found on RA prior to giving breathing tx. told on report pt refused bipap last night. o2 saturation 96-98%. no resp distress noted. no redness or skin wounds visible around facial area. willl cont to monitor.
[2019-04-23] MEDS: Aspirin Baby 81mg ORAL SCH (08:33)
[2019-04-23] MEDS: Docusate 100mg cap ORAL SCH ×3 (08:34→17:20)
[2019-04-23] MEDS: Azithromycin 250mg tab ORAL SCH (08:34)
[2019-04-23] MEDS: Carvedilol 25mg Tab ORAL SCH ×2 (08:34→20:41)
[2019-04-23] MEDS: Sennosides 8.6mg tab ORAL SCH (08:34)
[2019-04-23] MEDS: Heparin 5000 units/ml inj SUBQ SCH ×2 (08:36→20:46)
--- NOTE | 2019-04-23 09:41 | Nephrology Progress Note ---
Assessment/Plan Problem List: (1) ESRD (end stage renal disease) (2) Respiratory distress (3) Anemia in chronic kidney disease (CKD) (4) Diabetic nephropathy with proteinuria (5) Hypertensive kidney disease Assessment ESRD Pulm EDema DM HTN Anemia Low B12 and Iron by history CAD . Plan BP meds- adjusted stop lisinopril due to cough- start Rocephin one dose solumedrol- HD in am 04/24 CXR in am done 2D Echo Ej Fx 50 % Pulm support per orders Subjective ROS Limited/Unobtainable: No Objective Objective Last 24 Hour Vital Signs Date Time Temp Pulse Resp B/P (MAP) Pulse Ox O2 Delivery O2 Flow Rate FiO2 04/23/19 08:49 98.3 82 18 169/67 (101) 99 04/23/19 08:34 82 169/67 04/23/19 08:34 82 169/67 04/23/19 08:20 78 20 99 Nasal Cannula 2.0 28 87 20 96 04/23/19 08:19 96 Room Air 21 04/23/19 08:00 2.0 04/23/19 07:27 Nasal Cannula 2.0 04/23/19 05:08 173/82 04/23/19 05:00 78 173/82 (112) 04/23/19 04:00 98.2 80 19 115/78 (90) 95 04/23/19 04:00 2.0 04/23/19 03:50 86 20 99 Nasal Cannula 2.0 28 90 22 98 04/23/19 00:00 2.0 04/23/19 00:00 98.0 81 18 160/81 (107) 99 04/22/19 23:30 80 18 99 Nasal Cannula 2.0 28 78 18 97 04/22/19 23:04 170/77 04/22/19 23:00 95 170/77 (108) 04/22/19 21:00 77 111/76 04/22/19 21:00 Nasal Cannula 2.0 04/22/19 20:00 2.0 04/22/19 20:00 98.5 77 18 111/76 (88) 98 04/22/19 19:58 99 Nasal Cannula 2.0 28 04/22/19 19:47 77 18 99 Nasal Cannula 2.0 28 86 18 94 04/22/19 16:00 98.7 74 20 132/87 (102) 96 04/22/19 16:00 2.0 04/22/19 15:32 86 18 98 Room Air 21 81 18 92 04/22/19 13:16 123/74 04/22/19 12:00 2.0 04/22/19 12:00 98.5 91 20 123/74 (90) 97 04/22/19 11:10 89 18 100 Nasal Cannula 2.0 28 87 18 97 04/22/19 11:00 89 151/88 Intake and Output 04/22/19 04/23/19 18:59 06:59 Intake Total 710 ml 3360 ml Output Total 3001 ml Balance 710 ml 359 ml Intake Oral 600 ml 360 ml IV Total 110 ml Hemodialysis 3000 ml Output Urine Total 1 ml Hemodialysis UF 3000 ml # Voids 1 # Bowel Movements 1 Laboratory Tests 04/22/19 15:15: Arterial Blood pH 7.392, Arterial Blood Partial Pressure CO2 39.4, Arterial Blood Partial Pressure O2 91.1, Arterial Blood HCO3 23.4, Arterial Blood Oxygen Saturation 96.9, Arterial Blood Base Excess -1.3, Faheem Test Positive 04/23/19 04:55: White Blood Count 2.6L, Red Blood Count 3.06L, Hemoglobin 9.4L, Hematocrit 28.5L , Mean Corpuscular Volume 93, Mean Corpuscular Hemoglobin 30.8, Mean Corpuscular Hemoglobin Concent 33.0, Red Cell Distribution Width 13.9, Platelet Count 195, Mean Platelet Volume 6.9, Neutrophils (%) (Auto) , Lymphocytes (%) ( Auto) , Monocytes (%) (Auto) , Eosinophils (%) (Auto) , Basophils (%) (Auto) , Neutrophils % (Manual) [Pending], Lymphocytes % (Manual) [Pending], Platelet Estimate [Pending], Platelet Morphology [Pending], Sodium Level 135L, Potassium Level 4.1, Chloride Level 98, Carbon Dioxide Level 30, Anion Gap 7, Blood Urea Nitrogen 42H, Creatinine 4.5H, Estimat Glomerular Filtration Rate 9.6, Glucose Level 272#H, Calcium Level 8.0L, Phosphorus Level 4.0, Magnesium Level 2.0, Total Bilirubin 0.5, Aspartate Amino Transf (AST/SGOT) 16, Alanine Aminotransferase (ALT/SGPT) 11L, Alkaline Phosphatase 130H, C-Reactive Protein, Quantitative 2.4H, Pro-B-Type Natriuretic Peptide > 06346T, Total Protein 7.5, Albumin 3.6, Globulin 3.9, Albumin/Globulin Ratio 0.9L Height (Feet): 4 Height (Inches): 11.00 Weight (Pounds): 176 General Appearance: no apparent distress Cardiovascular: normal rate Respiratory/Chest: decreased breath sounds Abdomen: soft Francis Falk MD Apr 23, 2019 09:41
--- NOTE | 2019-04-23 10:00 | NUR ---
NURSE NOTES: Called [facility] Dialysis for schedule HD 04/23/19 6a-6p
--- NOTE | 2019-04-23 10:22 | Diagnostic Imaging Report ---
EXAM: XR Chest, 1 View CLINICAL HISTORY: COUGH TECHNIQUE: Frontal view of the chest. COMPARISON: No relevant prior studies available. FINDINGS: Lungs: Thickening of the interstitial markings. Pleural space: Blunting of the costophrenic angles that may be from effusions or pleural thickening. No pneumothorax. Heart: Large cardiac silhouette. Mediastinum: Unremarkable. Bones joints: No acute fracture. IMPRESSION: Thickening of the interstitial markings. Could be from interstitial edema and or pneumonia. There is a broader differential.
--- NOTE | 2019-04-23 10:59 | NUR ---
NURSE NOTES: RN performed walking SpO2 saturation test on Room Air with patient for a total of 8 minutes. Within the first 3 minutes pt desaturated to 86%, on 3 occasions during walk pt desaturated below 88%, even went as low at 84%. Order for home health with Oxygen entered per Dr. Herbert. Pt has Rx in chart for Duoneb at home
[2019-04-23] MEDS: cefTRIAXone 1 GM in D5W 55 ML IVPB SCH (11:53)
--- NOTE | 2019-04-23 12:18 | Pulmonology Progress Note ---
Assessment/Plan Assessment/Plan Pulmonary Progress Note HPI Patient is a 69 year old woman presenting with shortness of breath/cough ongoing for several days, patient has CKD, HTN, DM, CAD, Asthma, receives dialysis on Thursday and Thursday No current SOB, she denies any fever, no nausea, vomiting or diarrhea, has fatigue and malaise, no chest pain. Adequate PaO2 on RA, desaturated to 86% on walking, Home O2 ordered Allergies: No Known Allergies Past Medical History: CKD on HD, HTN, DM, Asthma, previous CAD All Other Systems: negative except mentioned in HPI Physical Exam Vital Signs Noted General Appearance: no distress on BiPAP Head: normocephalic, atraumatic Eyes: bilateral eye PERRL, bilateral eye EOMI ENT: moist mm Neck: no LN Respiratory: no retraction, no accessory muscle use, CTAB Cardiovascular: normal peripheral pulses, regular rate, rhythm, no JVD, no murmur, normal hS1/HS2 Gastrointestinal: normal bowel sounds, non tender, soft, no mass, no organomegaly, non-distended, no guarding, no hernia, no pulsatile mass, no rebound Genitourinary: no CVA tenderness Musculoskeletal: normal inspection - AV left arm Neurologic: oriented x3, 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, 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, motor strength/ tone normal, sensory intact Skin: no rash, no edema Impression: Respiratory distress improved Pulmonary congestion on CXR 04/20 ESRD (end stage renal disease) on HD Hypertension Diabetes CAD Plan: HD per Renal NC O2 PRN HHN PRN Monitor labs PPX ISS VQ low probability Low O2 sats with excercise, home O2 ordered For HD again tomorrow Labs noted Chest X-Ray: no consolidation, no pneumothorax, other - pulmonary congestion VQ low probability Dr Ibarra will be covering fo Pulmonary issues from afternoon 04/23/2019 to 04/26 Subjective ROS Limited/Unobtainable: No Allergies: Coded Allergies: No Known Allergies (Unverified , 05/12/17) Objective Last 24 Hour Vital Signs Date Time Temp Pulse Resp B/P (MAP) Pulse Ox O2 Delivery O2 Flow Rate FiO2 04/23/19 12:00 2.0 04/23/19 11:00 79 21 98 Nasal Cannula 2.0 28 76 21 95 04/23/19 08:49 98.3 82 18 169/67 (101) 99 04/23/19 08:34 82 169/67 04/23/19 08:34 82 169/67 04/23/19 08:20 78 20 99 Nasal Cannula 2.0 28 87 20 96 04/23/19 08:19 96 Room Air 21 04/23/19 08:00 2.0 04/23/19 07:27 Nasal Cannula 2.0 04/23/19 05:08 173/82 04/23/19 05:00 78 173/82 (112) 04/23/19 04:00 98.2 80 19 115/78 (90) 95 04/23/19 04:00 2.0 04/23/19 03:50 86 20 99 Nasal Cannula 2.0 28 90 22 98 04/23/19 00:00 2.0 04/23/19 00:00 98.0 81 18 160/81 (107) 99 04/22/19 23:30 80 18 99 Nasal Cannula 2.0 28 78 18 97 04/22/19 23:04 170/77 04/22/19 23:00 95 170/77 (108) 04/22/19 21:00 77 111/76 04/22/19 21:00 Nasal Cannula 2.0 04/22/19 20:00 2.0 04/22/19 20:00 98.5 77 18 111/76 (88) 98 04/22/19 19:58 99 Nasal Cannula 2.0 28 04/22/19 19:47 77 18 99 Nasal Cannula 2.0 28 86 18 94 04/22/19 16:00 98.7 74 20 132/87 (102) 96 04/22/19 16:00 2.0 04/22/19 15:32 86 18 98 Room Air 21 81 18 92 04/22/19 13:16 123/74 Intake and Output 04/22/19 04/23/19 19:00 07:00 Intake Total 710 ml 3360 ml Output Total 3001 ml Balance 710 ml 359 ml Intake Oral 600 ml 360 ml IV Total 110 ml Hemodialysis 3000 ml Output Urine Total 1 ml Hemodialysis UF 3000 ml # Voids 1 # Bowel Movements 1 Laboratory Tests 04/22/19 15:15: Arterial Blood pH 7.392, Arterial Blood Partial Pressure CO2 39.4, Arterial Blood Partial Pressure O2 91.1, Arterial Blood HCO3 23.4, Arterial Blood Oxygen Saturation 96.9, Arterial Blood Base Excess -1.3, Faheem Test Positive 04/23/19 04:55: White Blood Count 2.6L, Red Blood Count 3.06L, Hemoglobin 9.4L, Hematocrit 28.5L , Mean Corpuscular Volume 93, Mean Corpuscular Hemoglobin 30.8, Mean Corpuscular Hemoglobin Concent 33.0, Red Cell Distribution Width 13.9, Platelet Count 195, Mean Platelet Volume 6.9, Neutrophils (%) (Auto) , Lymphocytes (%) ( Auto) , Monocytes (%) (Auto) , Eosinophils (%) (Auto) , Basophils (%) (Auto) , Differential Total Cells Counted 100, Neutrophils % (Manual) 73, Lymphocytes % ( Manual) 17L, Monocytes % (Manual) 10, Eosinophils % (Manual) 0, Basophils % ( Manual) 0, Band Neutrophils 0, Platelet Estimate Adequate, Platelet Morphology Normal, Red Blood Cell Morphology Normal, Sodium Level 135L, Potassium Level 4.1 , Chloride Level 98, Carbon Dioxide Level 30, Anion Gap 7, Blood Urea Nitrogen 42H, Creatinine 4.5H, Estimat Glomerular Filtration Rate 9.6, Glucose Level 272# H, Calcium Level 8.0L, Phosphorus Level 4.0, Magnesium Level 2.0, Total Bilirubin 0.5, Aspartate Amino Transf (AST/SGOT) 16, Alanine Aminotransferase ( ALT/SGPT) 11L, Alkaline Phosphatase 130H, C-Reactive Protein, Quantitative 2.4H , Pro-B-Type Natriuretic Peptide > 79602Q, Total Protein 7.5, Albumin 3.6, Globulin 3.9, Albumin/Globulin Ratio 0.9L Current Medications Medications (Trade) Dose Ordered Sig/Toya Route PRN Reason Start Time Stop Time Status Last Admin Dose Admin Acetaminophen (Tylenol) 500 mg Q4H PRN ORAL Mild Pain/Temp > 100.5 04/21/19 18:03 05/21/19 18:02 Albuterol/ Ipratropium (Albuterol/ Ipratropium) 3 ml Q4HRT HHN 04/21/19 19:00 04/23/19 18:59 04/23/19 10:59 Amlodipine Besylate (Norvasc) 10 mg DAILY ORAL 04/22/19 09:00 05/19/19 08:59 04/23/19 08:34 Aspirin (ASA) 81 mg DAILY ORAL 04/22/19 09:00 05/19/19 13:36 04/23/19 08:33 Atorvastatin Calcium (Lipitor) 10 mg BEDTIME ORAL 04/21/19 21:00 05/18/19 20:59 04/22/19 21:14 Azithromycin (Zithromax) 250 mg DAILY ORAL 04/23/19 09:00 04/30/19 08:59 04/23/19 08:34 Carvedilol (Coreg) 25 mg EVERY 12 HOURS ORAL 04/22/19 11:00 05/22/19 10:59 04/23/19 08:34 Ceftriaxone Sodium 1 gm/ Dextrose 55 ml @ 110 mls/hr Q24H IVPB 04/22/19 11:00 04/29/19 10:59 04/23/19 11:53 Dextrose (Dextrose 50%) 25 ml Q30M PRN IV Hypoglycemia 04/21/19 18:15 05/18/19 15:44 Dextrose (Dextrose 50%) 50 ml Q30M PRN IV Hypoglycemia 04/21/19 18:15 05/18/19 15:44 Docusate Sodium (Colace) 100 mg TID ORAL 04/21/19 18:05 05/21/19 18:04 04/23/19 08:34 Epoetin Panchito (Epoetin Panchito(ESRD on dialysis)) 3,000 unit THU-THU-THU SUBQ 04/22/19 21:00 05/20/19 20:59 04/22/19 21:14 Folic Acid (Folate) 3 mg DAILY ORAL 04/22/19 09:00 05/19/19 08:59 04/23/19 08:33 Gabapentin (Neurontin) 300 mg Q8HR ORAL 04/21/19 22:00 05/18/19 16:59 04/23/19 05:08 Guaifenesin/ Dextromethorphan (Robitussin DM Syrup) 5 ml Q6H PRN ORAL For Cough 04/21/19 18:03 05/21/19 18:02 Heparin Sodium (Porcine) (Heparin 5000 units/ml) 5,000 units EVERY 12 HOURS SUBQ 04/21/19 21:00 05/18/19 20:59 04/23/19 08:36 Hydralazine HCl (Apresoline) 25 mg Q4H PRN ORAL prn bp over 160 syst 04/21/19 18:04 05/21/19 18:03 Hydralazine HCl (Apresoline) 75 mg Q8HR ORAL 04/23/19 14:00 05/22/19 13:59 Insulin Aspart (NovoLOG) BEFORE MEALS AND HS SUBQ 04/21/19 21:00 05/18/19 16:29 04/23/19 11:54 Insulin Detemir (Levemir) 12 units BEDTIME SUBQ 04/22/19 21:00 05/19/19 20:59 04/22/19 21:18 Levothyroxine Sodium (Synthroid) 100 mcg DAILY@0630 ORAL 04/22/19 06:30 05/19/19 06:29 04/23/19 06:03 Metoclopramide HCl (Reglan) 10 mg Q6H PRN IVP Nausea & Vomiting 04/21/19 18:04 05/21/19 18:03 Pantoprazole (Protonix) 40 mg EVERY 12 HOURS ORAL 04/21/19 21:00 05/18/19 20:59 04/23/19 08:34 Sennosides (Senokot) 8.6 mg DAILY ORAL 04/22/19 09:00 05/19/19 08:59 04/23/19 08:34 Tramadol HCl (Ultram) 50 mg Q6H PRN ORAL pain 6 - 10 04/21/19 18:05 04/28/19 18:04 04/23/19 05:39 Brandon Herbert MD Apr 23, 2019 12:18
--- NOTE | 2019-04-23 12:35 | Hematology/Onc Progress Note ---
Assessment/Plan Assessment/Plan Assessment/Recs 1. Anemia due to underlying chronic disease. Have reviewed prior workup, ferritin is >1000, though percent saturation Tsat <30, but not recommended for further iron --> Continue to closely monitor. --> Transfuse if hgb <7 --> ferritin is >600, therefore hold off oniron --> started epogen, has been started with hd --> hgb trend 9.6-->9.4 --> monitor for gi bleed 2. Leukopenia likely reactive process v infection --> hepatitis and hiv prior NEGATIVE --> neutropenic precautions if ANC <1500 --> trending stable --> imaging reviewed and no hsm / cirrhosis noted prior --> wbc trend 3.1-->3.4-->2.6 3. End-stage renal disease, on hemodialysis three times a week. continue mwf --> renal consulted --> hd for 04/21, 04/23 4. Coronary artery disease. --> cards reviewed --> with fluid overload may need diuresis --> with less sob 5. History of anemia due to low B12, low iron. --> b12 is currently within normal limits --> reobtain q6mo 6. Dizziness and unsteady gait. 7. DVt ppsx with heparin sq Greatly appreciate consultation. Subjective Constitutional: Denies: no symptoms, chills, fever, malaise, weakness, other HEENT: Denies: no symptoms, eye pain, blurred vision, tearing, double vision, ear pain, ear discharge, nose pain, nose congestion, throat pain, throat swelling, mouth pain, mouth swelling, other Cardiovascular: Denies: no symptoms, chest pain, edema, irregular heart rate, lightheadedness, palpitations, syncope, other Respiratory: Denies: no symptoms, cough, shortness of breath, SOB with excertion, SOB at rest, sputum, wheezing, other Neurologic/Psychiatric: Denies: no symptoms, anxiety, depressed, emotional problems, headache, numbness, paresthesia, pre-existing deficit, seizure, tingling, tremors, weakness, other Endocrine: Denies: no symptoms, excessive sweating, flushing, intolerance to cold, intolerance to heat, increased hunger, increased thirst, increased urine, unexplained weight gain, unexplained weight loss, other Allergies: Coded Allergies: No Known Allergies (Unverified , 05/12/17) Subjective 04/20: bs was low o/n, 54 dw rn, and given oj, labs reviewed 04/21: getting hd, no events, no bleeding, no f/c 04/22: on 2l nc, no bleeding or chills, using bipap prn basis 04/23: no events, hd for today, has been ordered with vip hd Objective Objective Current Medications Medications (Trade) Dose Ordered Sig/Toya Route PRN Reason Start Time Stop Time Status Last Admin Dose Admin Acetaminophen (Tylenol) 500 mg Q4H PRN ORAL Mild Pain/Temp > 100.5 04/21/19 18:03 05/21/19 18:02 Albuterol/ Ipratropium (Albuterol/ Ipratropium) 3 ml Q4HRT HHN 04/21/19 19:00 04/23/19 18:59 04/23/19 10:59 Amlodipine Besylate (Norvasc) 10 mg DAILY ORAL 04/22/19 09:00 05/19/19 08:59 04/23/19 08:34 Aspirin (ASA) 81 mg DAILY ORAL 04/22/19 09:00 05/19/19 13:36 04/23/19 08:33 Atorvastatin Calcium (Lipitor) 10 mg BEDTIME ORAL 04/21/19 21:00 05/18/19 20:59 04/22/19 21:14 Azithromycin (Zithromax) 250 mg DAILY ORAL 04/23/19 09:00 04/30/19 08:59 04/23/19 08:34 Carvedilol (Coreg) 25 mg EVERY 12 HOURS ORAL 04/22/19 11:00 05/22/19 10:59 04/23/19 08:34 Ceftriaxone Sodium 1 gm/ Dextrose 55 ml @ 110 mls/hr Q24H IVPB 04/22/19 11:00 04/29/19 10:59 04/23/19 11:53 Dextrose (Dextrose 50%) 25 ml Q30M PRN IV Hypoglycemia 04/21/19 18:15 05/18/19 15:44 Dextrose (Dextrose 50%) 50 ml Q30M PRN IV Hypoglycemia 04/21/19 18:15 05/18/19 15:44 Docusate Sodium (Colace) 100 mg TID ORAL 04/21/19 18:05 05/21/19 18:04 04/23/19 08:34 Epoetin Panchito (Epoetin Panchito(ESRD on dialysis)) 3,000 unit THU-THU-THU SUBQ 04/22/19 21:00 05/20/19 20:59 04/22/19 21:14 Folic Acid (Folate) 3 mg DAILY ORAL 04/22/19 09:00 05/19/19 08:59 04/23/19 08:33 Gabapentin (Neurontin) 300 mg Q8HR ORAL 04/21/19 22:00 05/18/19 16:59 04/23/19 05:08 Guaifenesin/ Dextromethorphan (Robitussin DM Syrup) 5 ml Q6H PRN ORAL For Cough 04/21/19 18:03 05/21/19 18:02 Heparin Sodium (Porcine) (Heparin 5000 units/ml) 5,000 units EVERY 12 HOURS SUBQ 04/21/19 21:00 05/18/19 20:59 04/23/19 08:36 Hydralazine HCl (Apresoline) 25 mg Q4H PRN ORAL prn bp over 160 syst 04/21/19 18:04 05/21/19 18:03 Hydralazine HCl (Apresoline) 75 mg Q8HR ORAL 04/23/19 14:00 05/22/19 13:59 Insulin Aspart (NovoLOG) BEFORE MEALS AND HS SUBQ 04/21/19 21:00 05/18/19 16:29 04/23/19 11:54 Insulin Detemir (Levemir) 12 units BEDTIME SUBQ 04/22/19 21:00 05/19/19 20:59 04/22/19 21:18 Levothyroxine Sodium (Synthroid) 100 mcg DAILY@0630 ORAL 04/22/19 06:30 05/19/19 06:29 04/23/19 06:03 Metoclopramide HCl (Reglan) 10 mg Q6H PRN IVP Nausea & Vomiting 04/21/19 18:04 05/21/19 18:03 Pantoprazole (Protonix) 40 mg EVERY 12 HOURS ORAL 04/21/19 21:00 05/18/19 20:59 04/23/19 08:34 Sennosides (Senokot) 8.6 mg DAILY ORAL 04/22/19 09:00 05/19/19 08:59 04/23/19 08:34 Tramadol HCl (Ultram) 50 mg Q6H PRN ORAL pain 6 - 10 04/21/19 18:05 04/28/19 18:04 04/23/19 05:39 Last 24 Hour Vital Signs Date Time Temp Pulse Resp B/P (MAP) Pulse Ox O2 Delivery O2 Flow Rate FiO2 04/23/19 12:00 2.0 04/23/19 12:00 99.1 79 18 153/79 (103) 98 04/23/19 11:00 79 21 98 Nasal Cannula 2.0 28 76 21 95 04/23/19 08:49 98.3 82 18 169/67 (101) 99 04/23/19 08:34 82 169/67 04/23/19 08:34 82 169/67 04/23/19 08:20 78 20 99 Nasal Cannula 2.0 28 87 20 96 04/23/19 08:19 96 Room Air 21 04/23/19 08:00 2.0 04/23/19 07:27 Nasal Cannula 2.0 04/23/19 05:08 173/82 04/23/19 05:00 78 173/82 (112) 04/23/19 04:00 98.2 80 19 115/78 (90) 95 04/23/19 04:00 2.0 04/23/19 03:50 86 20 99 Nasal Cannula 2.0 28 90 22 98 04/23/19 00:00 2.0 04/23/19 00:00 98.0 81 18 160/81 (107) 99 04/22/19 23:30 80 18 99 Nasal Cannula 2.0 28 78 18 97 04/22/19 23:04 170/77 04/22/19 23:00 95 170/77 (108) 04/22/19 21:00 77 111/76 04/22/19 21:00 Nasal Cannula 2.0 04/22/19 20:00 2.0 04/22/19 20:00 98.5 77 18 111/76 (88) 98 04/22/19 19:58 99 Nasal Cannula 2.0 28 04/22/19 19:47 77 18 99 Nasal Cannula 2.0 28 86 18 94 04/22/19 16:00 98.7 74 20 132/87 (102) 96 04/22/19 16:00 2.0 04/22/19 15:32 86 18 98 Room Air 21 81 18 92 04/22/19 13:16 123/74 04/22/19 12:00 2.0 04/22/19 12:00 98.5 91 20 123/74 (90) 97 04/22/19 11:10 89 18 100 Nasal Cannula 2.0 28 87 18 97 04/22/19 11:00 89 151/88 04/22/19 09:08 93 151/88 04/22/19 09:08 151/88 04/22/19 09:08 93 151/88 04/22/19 09:00 98.8 93 20 151/88 (109) 98 04/22/19 08:04 96 Nasal Cannula 2.0 28 04/22/19 08:02 92 18 99 Nasal Cannula 2.0 28 90 18 96 04/22/19 08:00 2.0 04/22/19 04:34 89 22 97 Facial 30 04/22/19 04:00 30 04/22/19 02:44 90 18 100 Nasal Cannula 2.0 28 95 18 98 04/22/19 00:56 82 20 99 Facial 30 04/21/19 22:58 89 18 98 Facial 30 04/21/19 22:31 85 18 99 Nasal Cannula 2.0 28 82 18 97 04/21/19 20:36 82 127/70 04/21/19 20:00 99.2 82 20 127/70 (89) 98 04/21/19 20:00 2.0 04/21/19 20:00 Nasal Cannula 2.0 04/21/19 19:53 95 Nasal Cannula 2.0 28 04/21/19 19:52 82 18 98 Nasal Cannula 2.0 28 79 18 95 04/21/19 18:24 152/59 04/21/19 18:20 98.0 78 20 152/59 (90) 97 04/21/19 16:00 2.0 04/21/19 16:00 92 04/21/19 16:00 98.3 75 20 153/87 (109) 98 04/21/19 16:00 Nasal Cannula 2.0 04/21/19 15:36 84 18 100 Nasal Cannula 2.0 28 89 18 98 Intake and Output 04/22/19 04/23/19 19:00 07:00 Intake Total 710 ml 3360 ml Output Total 3001 ml Balance 710 ml 359 ml Intake Oral 600 ml 360 ml IV Total 110 ml Hemodialysis 3000 ml Output Urine Total 1 ml Hemodialysis UF 3000 ml # Voids 1 # Bowel Movements 1 Labs Test 04/21/19 03:20 04/22/19 04:49 04/22/19 15:15 04/23/19 04:55 White Blood Count 3.4 K/UL (4.8-10.8) 3.9 K/UL (4.8-10.8) 2.6 K/UL (4.8-10.8) Red Blood Count 3.02 M/UL (4.20-5.40) 3.18 M/UL (4.20-5.40) 3.06 M/UL (4.20-5.40) Hemoglobin 9.2 G/DL (12.0-16.0) 9.7 G/DL (12.0-16.0) 9.4 G/DL (12.0-16.0) Hematocrit 28.4 % (37.0-47.0) 29.7 % (37.0-47.0) 28.5 % (37.0-47.0) Mean Corpuscular Volume 94 FL (80-99) 94 FL (80-99) 93 FL (80-99) Mean Corpuscular Hemoglobin 30.5 PG (27.0-31.0) 30.5 PG (27.0-31.0) 30.8 PG (27.0-31.0) Mean Corpuscular Hemoglobin Concent 32.5 G/DL (32.0-36.0) 32.6 G/DL (32.0-36.0) 33.0 G/DL (32.0-36.0) Red Cell Distribution Width 14.0 % (11.6-14.8) 13.9 % (11.6-14.8) 13.9 % (11.6-14.8) Platelet Count 170 K/UL (150-450) 196 K/UL (150-450) 195 K/UL (150-450) Mean Platelet Volume 6.4 FL (6.5-10.1) 6.3 FL (6.5-10.1) 6.9 FL (6.5-10.1) Neutrophils (%) (Auto) % (45.0-75.0) 73.4 % (45.0-75.0) % (45.0-75.0) Lymphocytes (%) (Auto) % (20.0-45.0) 11.9 % (20.0-45.0) % (20.0-45.0) Monocytes (%) (Auto) % (1.0-10.0) 8.1 % (1.0-10.0) % (1.0-10.0) Eosinophils (%) (Auto) % (0.0-3.0) 4.7 % (0.0-3.0) % (0.0-3.0) Basophils (%) (Auto) % (0.0-2.0) 1.9 % (0.0-2.0) % (0.0-2.0) Differential Total Cells Counted 100 100 Neutrophils % (Manual) 71 % (45-75) 73 % (45-75) Lymphocytes % (Manual) 21 % (20-45) 17 % (20-45) Monocytes % (Manual) 6 % (1-10) 10 % (1-10) Eosinophils % (Manual) 2 % (0-3) 0 % (0-3) Basophils % (Manual) 0 % (0-2) 0 % (0-2) Band Neutrophils 0 % (0-8) 0 % (0-8) Platelet Estimate Adequate Adequate Platelet Morphology Normal Normal Hypochromasia 1+ Sodium Level 138 MMOL/L (136-145) 135 MMOL/L (136-145) 135 MMOL/L (136-145) Potassium Level 3.6 MMOL/L (3.5-5.1) 4.1 MMOL/L (3.5-5.1) 4.1 MMOL/L (3.5-5.1) Chloride Level 98 MMOL/L (98-107) 97 MMOL/L (98-107) 98 MMOL/L (98-107) Carbon Dioxide Level 32 MMOL/L (21-32) 30 MMOL/L (21-32) 30 MMOL/L (21-32) Anion Gap 8 mmol/L (5-15) 8 mmol/L (5-15) 7 mmol/L (5-15) Blood Urea Nitrogen 46 mg/dL (7-18) 37 mg/dL (7-18) 42 mg/dL (7-18) Creatinine 5.8 MG/DL (0.55-1.30) 4.9 MG/DL (0.55-1.30) 4.5 MG/DL (0.55-1.30) Estimat Glomerular Filtration Rate 7.2 mL/min (>60) 8.8 mL/min (>60) 9.6 mL/min (>60) Glucose Level 178 MG/DL (74-106) 165 MG/DL (74-106) 272 MG/DL (74-106) Calcium Level 7.4 MG/DL (8.5-10.1) 7.4 MG/DL (8.5-10.1) 8.0 MG/DL (8.5-10.1) Phosphorus Level 4.6 MG/DL (2.5-4.9) 4.2 MG/DL (2.5-4.9) 4.0 MG/DL (2.5-4.9) Total Bilirubin 0.6 MG/DL (0.2-1.0) 0.7 MG/DL (0.2-1.0) 0.5 MG/DL (0.2-1.0) Aspartate Amino Transf (AST/SGOT) 13 U/L (15-37) 16 U/L (15-37) 16 U/L (15-37) Alanine Aminotransferase (ALT/SGPT) 6 U/L (12-78) 11 U/L (12-78) 11 U/L (12-78) Alkaline Phosphatase 124 U/L (46-116) 122 U/L (46-116) 130 U/L (46-116) Pro-B-Type Natriuretic Peptide > 31791 pg/mL (0-125) > 80896 pg/mL (0-125) > 58581 pg/mL (0-125) Total Protein 7.2 G/DL (6.4-8.2) 7.5 G/DL (6.4-8.2) 7.5 G/DL (6.4-8.2) Albumin 3.5 G/DL (3.4-5.0) 3.6 G/DL (3.4-5.0) 3.6 G/DL (3.4-5.0) Globulin 3.7 g/dL 3.9 g/dL 3.9 g/dL Albumin/Globulin Ratio 0.9 (1.0-2.7) 0.9 (1.0-2.7) 0.9 (1.0-2.7) Uric Acid 4.8 MG/DL (2.6-7.2) C-Reactive Protein, Quantitative 1.6 mg/dL (0.00-0.90) 2.4 mg/dL (0.00-0.90) Hepatitis B Surface Antigen Negative (Negative) Arterial Blood pH 7.392 (7.350-7.450) Arterial Blood Partial Pressure CO2 39.4 mmHg (35.0-45.0) Arterial Blood Partial Pressure O2 91.1 mmHg (75.0-100.0) Arterial Blood HCO3 23.4 mmol/L (22.0-26.0) Arterial Blood Oxygen Saturation 96.9 % (95-100) Arterial Blood Base Excess -1.3 (-2-2) Faheem Test Positive Red Blood Cell Morphology Normal Magnesium Level 2.0 MG/DL (1.8-2.4) Height (Feet): 4 Height (Inches): 11.00 Weight (Pounds): 166 Objective VITAL SIGNS: Reviewed. GENERAL: No distress. PULMONARY: Decreased breath sounds. ++ BIPAP CARDIOVASCULAR: Regular rate. No S3 or S4. ABDOMEN: Soft, nontender, and nondistended. EXTREMITIES: 1+ edema noted . ++ Left AVS Carl Daniels MD Apr 23, 2019 12:35
--- NOTE | 2019-04-23 16:41 | General Progress Note ---
Assessment/Plan Problem List: (1) Pulmonary congestion ICD Codes: R09.89 - Other specified symptoms and signs involving the circulatory and respiratory systems SNOMED: 93906033 (2) Pneumonia ICD Codes: J18.9 - Pneumonia, unspecified organism SNOMED: 533479119 (3) Renal failure ICD Codes: N19 - Unspecified kidney failure SNOMED: 43456367 (4) ESRD (end stage renal disease) ICD Codes: N18.6 - End stage renal disease SNOMED: 60905923 (5) Dyspnea ICD Codes: R06.00 - Dyspnea, unspecified SNOMED: 514771754 (6) Anemia in chronic kidney disease (CKD) ICD Codes: N18.9 - Chronic kidney disease, unspecified; D63.1 - Anemia in chronic kidney disease SNOMED: 501810978 Status: progressing Assessment/Plan: at times has dyspnea lyte abnormality afebrile no wheezing esrd on hd needs more diaylsis Subjective ROS Limited/Unobtainable: Yes Allergies: Coded Allergies: No Known Allergies (Unverified , 05/12/17) Objective Last 24 Hour Vital Signs Date Time Temp Pulse Resp B/P (MAP) Pulse Ox O2 Delivery O2 Flow Rate FiO2 04/23/19 16:23 97.8 73 20 134/64 (87) 99 04/23/19 16:00 2.0 04/23/19 15:10 84 21 99 Nasal Cannula 2.0 28 84 20 97 04/23/19 13:04 153/79 04/23/19 12:00 2.0 04/23/19 12:00 99.1 79 18 153/79 (103) 98 04/23/19 11:00 79 21 98 Nasal Cannula 2.0 28 76 21 95 04/23/19 08:49 98.3 82 18 169/67 (101) 99 04/23/19 08:34 82 169/67 04/23/19 08:34 82 169/67 04/23/19 08:20 78 20 99 Nasal Cannula 2.0 28 87 20 96 04/23/19 08:19 96 Room Air 21 04/23/19 08:00 2.0 04/23/19 07:27 Nasal Cannula 2.0 04/23/19 05:08 173/82 04/23/19 05:00 78 173/82 (112) 04/23/19 04:00 98.2 80 19 115/78 (90) 95 04/23/19 04:00 2.0 04/23/19 03:50 86 20 99 Nasal Cannula 2.0 28 90 22 98 04/23/19 00:00 2.0 04/23/19 00:00 98.0 81 18 160/81 (107) 99 04/22/19 23:30 80 18 99 Nasal Cannula 2.0 28 78 18 97 04/22/19 23:04 170/77 04/22/19 23:00 95 170/77 (108) 04/22/19 21:00 77 111/76 04/22/19 21:00 Nasal Cannula 2.0 04/22/19 20:00 2.0 04/22/19 20:00 98.5 77 18 111/76 (88) 98 04/22/19 19:58 99 Nasal Cannula 2.0 28 04/22/19 19:47 77 18 99 Nasal Cannula 2.0 28 86 18 94 Intake and Output 04/22/19 04/23/19 19:00 07:00 Intake Total 710 ml 3360 ml Output Total 3001 ml Balance 710 ml 359 ml Intake Oral 600 ml 360 ml IV Total 110 ml Hemodialysis 3000 ml Output Urine Total 1 ml Hemodialysis UF 3000 ml # Voids 1 # Bowel Movements 1 Laboratory Tests 04/23/19 04:55: White Blood Count 2.6L, Red Blood Count 3.06L, Hemoglobin 9.4L, Hematocrit 28.5L , Mean Corpuscular Volume 93, Mean Corpuscular Hemoglobin 30.8, Mean Corpuscular Hemoglobin Concent 33.0, Red Cell Distribution Width 13.9, Platelet Count 195, Mean Platelet Volume 6.9, Neutrophils (%) (Auto) , Lymphocytes (%) ( Auto) , Monocytes (%) (Auto) , Eosinophils (%) (Auto) , Basophils (%) (Auto) , Differential Total Cells Counted 100, Neutrophils % (Manual) 73, Lymphocytes % ( Manual) 17L, Monocytes % (Manual) 10, Eosinophils % (Manual) 0, Basophils % ( Manual) 0, Band Neutrophils 0, Platelet Estimate Adequate, Platelet Morphology Normal, Red Blood Cell Morphology Normal, Sodium Level 135L, Potassium Level 4.1 , Chloride Level 98, Carbon Dioxide Level 30, Anion Gap 7, Blood Urea Nitrogen 42H, Creatinine 4.5H, Estimat Glomerular Filtration Rate 9.6, Glucose Level 272# H, Calcium Level 8.0L, Phosphorus Level 4.0, Magnesium Level 2.0, Total Bilirubin 0.5, Aspartate Amino Transf (AST/SGOT) 16, Alanine Aminotransferase ( ALT/SGPT) 11L, Alkaline Phosphatase 130H, C-Reactive Protein, Quantitative 2.4H , Pro-B-Type Natriuretic Peptide > 09686Q, Total Protein 7.5, Albumin 3.6, Globulin 3.9, Albumin/Globulin Ratio 0.9L Height (Feet): 4 Height (Inches): 11.00 Weight (Pounds): 166 Cardiovascular: normal rate Respiratory/Chest: lungs clear Abdomen: soft Makenna Daniel MD Apr 23, 2019 16:41
--- NOTE | 2019-04-23 19:25 | NUR ---
HAND-OFF: Report given to SIDNEY Resendiz.
--- NOTE | 2019-04-23 19:38 | NUR ---
NURSE NOTES: NURSE NOTES: Received pt sitting in bed. AAO x 4, NC 2L / min. BiPAP used at night time for PRN. AV shunt on SH[place] is thrill and bruit. No c/o pain. No acute distress noted at this time. Bed locked, lowest position, alarm on, side rails up x 2, call light within reach. Will continue to monitor.
[2019-04-23] MEDS: Levemir Flexpen SUBQ SCH (20:48)
[2019-04-24] VITALS: BP 135/89
[2019-04-24 04:00] VITALS: BP 125/78
[2019-04-24 05:16] VITALS: BP 158/62
[2019-04-24] MEDS: HydrALAZINE 50mg tab ORAL SCH ×3 (05:16→22:17)
[2019-04-24] MEDS: NovoLOG Insulin Flexpen SUBQ SCH ×4 (06:10→20:27)
--- NOTE | 2019-04-24 06:22 | NUR ---
NURSE NOTES: Called [facility] for schedule 04/24/19. Waiting for call back.
--- NOTE | 2019-04-24 07:38 | NUR ---
HAND-OFF: Report given to SIDNEY Kwan.
[2019-04-24 08:00] VITALS: BP 146/67
--- NOTE | 2019-04-24 08:54 | Pulmonology Progress Note ---
Assessment/Plan Assessment/Plan Impression: Respiratory distress- stable Pulmonary congestion ESRD (end stage renal disease) on HD Hypertension Diabetes CAD Plan: HD per Renal NC O2 PRN HHN PRN Monitor labs keep negative For HD again tomorrow impression, plan, and exam edited and reviewed in detail care discussed with RN Subjective Allergies: Coded Allergies: No Known Allergies (Unverified , 05/12/17) Subjective care noted comfortable off oxygen undergoing HD Objective Last 24 Hour Vital Signs Date Time Temp Pulse Resp B/P (MAP) Pulse Ox O2 Delivery O2 Flow Rate FiO2 04/24/19 08:00 98.4 69 18 146/67 (93) 94 69 04/24/19 08:00 2.0 04/24/19 05:16 70 158/62 (94) 04/24/19 05:16 158/62 04/24/19 04:00 2.0 04/24/19 04:00 96.9 70 20 125/78 (94) 97 04/24/19 01:32 80 18 97 Facial 30 04/24/19 00:00 2.0 04/24/19 00:00 97.5 75 20 135/89 (104) 95 04/23/19 22:08 70 147/82 (103) 04/23/19 22:06 147/82 04/23/19 20:41 70 127/83 04/23/19 20:00 70 20 98 Nasal Cannula 2.0 28 04/23/19 20:00 97.9 70 20 127/83 (98) 95 04/23/19 20:00 98 Nasal Cannula 2.0 28 04/23/19 20:00 2.0 04/23/19 16:23 97.8 73 20 134/64 (87) 99 04/23/19 16:00 2.0 04/23/19 15:10 84 21 99 Nasal Cannula 2.0 28 84 20 97 04/23/19 13:04 153/79 04/23/19 12:00 2.0 04/23/19 12:00 99.1 79 18 153/79 (103) 98 04/23/19 11:00 79 21 98 Nasal Cannula 2.0 28 76 21 95 Intake and Output 04/23/19 04/24/19 18:59 06:59 Intake Total 55 ml 3360 ml Output Total 3001 ml Balance 55 ml 359 ml Intake Oral 360 ml IV Total 55 ml Hemodialysis 3000 ml Output Urine Total 1 ml Hemodialysis UF 3000 ml # Voids 1 # Bowel Movements 1 Objective WDWN NAD clear breath sounds bilaterally without rhonchi or wheeze [id number] without MRG NABS nontender no HSM no CCE nonfocal Current Medications Medications (Trade) Dose Ordered Sig/Toya Route PRN Reason Start Time Stop Time Status Last Admin Dose Admin Acetaminophen (Tylenol) 500 mg Q4H PRN ORAL Mild Pain/Temp > 100.5 04/21/19 18:03 05/21/19 18:02 Amlodipine Besylate (Norvasc) 10 mg DAILY ORAL 04/22/19 09:00 05/19/19 08:59 04/23/19 08:34 Aspirin (ASA) 81 mg DAILY ORAL 04/22/19 09:00 05/19/19 13:36 04/23/19 08:33 Atorvastatin Calcium (Lipitor) 10 mg BEDTIME ORAL 04/21/19 21:00 05/18/19 20:59 04/23/19 20:41 Azithromycin (Zithromax) 250 mg DAILY ORAL 04/23/19 09:00 04/30/19 08:59 04/23/19 08:34 Carvedilol (Coreg) 25 mg EVERY 12 HOURS ORAL 04/22/19 11:00 05/22/19 10:59 04/23/19 20:41 Ceftriaxone Sodium 1 gm/ Dextrose 55 ml @ 110 mls/hr Q24H IVPB 04/22/19 11:00 04/29/19 10:59 04/23/19 11:53 Dextrose (Dextrose 50%) 25 ml Q30M PRN IV Hypoglycemia 04/21/19 18:15 05/18/19 15:44 Dextrose (Dextrose 50%) 50 ml Q30M PRN IV Hypoglycemia 04/21/19 18:15 05/18/19 15:44 Docusate Sodium (Colace) 100 mg TID ORAL 04/21/19 18:05 05/21/19 18:04 04/23/19 17:20 Epoetin Panchito (Epoetin Panchito(ESRD on dialysis)) 3,000 unit THU-WED-THU SUBQ 04/22/19 21:00 05/20/19 20:59 04/22/19 21:14 Folic Acid (Folate) 3 mg DAILY ORAL 04/22/19 09:00 05/19/19 08:59 04/23/19 08:33 Gabapentin (Neurontin) 300 mg Q8HR ORAL 04/21/19 22:00 05/18/19 16:59 04/24/19 05:13 Guaifenesin/ Dextromethorphan (Robitussin DM Syrup) 5 ml Q6H PRN ORAL For Cough 04/21/19 18:03 05/21/19 18:02 Heparin Sodium (Porcine) (Heparin 5000 units/ml) 5,000 units EVERY 12 HOURS SUBQ 04/21/19 21:00 05/18/19 20:59 04/23/19 20:46 Hydralazine HCl (Apresoline) 25 mg Q4H PRN ORAL prn bp over 160 syst 04/21/19 18:04 05/21/19 18:03 Hydralazine HCl (Apresoline) 75 mg Q8HR ORAL 04/23/19 14:00 05/22/19 13:59 04/24/19 05:16 Insulin Aspart (NovoLOG) BEFORE MEALS AND HS SUBQ 04/21/19 21:00 05/18/19 16:29 04/24/19 06:10 Insulin Detemir (Levemir) 12 units BEDTIME SUBQ 04/22/19 21:00 05/19/19 20:59 04/23/19 20:48 Levothyroxine Sodium (Synthroid) 100 mcg DAILY@0630 ORAL 04/22/19 06:30 05/19/19 06:29 04/24/19 06:08 Metoclopramide HCl (Reglan) 10 mg Q6H PRN IVP Nausea & Vomiting 04/21/19 18:04 05/21/19 18:03 Pantoprazole (Protonix) 40 mg EVERY 12 HOURS ORAL 04/21/19 21:00 05/18/19 20:59 04/23/19 20:40 Sennosides (Senokot) 8.6 mg DAILY ORAL 04/22/19 09:00 05/19/19 08:59 04/23/19 08:34 Tramadol HCl (Ultram) 50 mg Q6H PRN ORAL pain 6 - 10 04/21/19 18:05 04/28/19 18:04 04/23/19 05:39 Bryn Ibarra MD Apr 24, 2019 08:54
--- NOTE | 2019-04-24 11:12 | Nephrology Progress Note ---
Assessment/Plan Problem List: (1) ESRD (end stage renal disease) (2) Respiratory distress (3) Anemia in chronic kidney disease (CKD) (4) Diabetic nephropathy with proteinuria (5) Hypertensive kidney disease Assessment ESRD Pulm EDema DM HTN Anemia Low B12 and Iron by history CAD . Plan BP meds- adjusted stop lisinopril due to cough- start Rocephin one dose solumedrol- HD in am 04/24 CXR in am done 2D Echo Ej Fx 50 % Pulm support per orders ? DC in am Subjective ROS Limited/Unobtainable: No Interval Events/Complaints on HD now Objective Objective Last 24 Hour Vital Signs Date Time Temp Pulse Resp B/P (MAP) Pulse Ox O2 Delivery O2 Flow Rate FiO2 04/24/19 09:59 97 Nasal Cannula 2.0 28 04/24/19 09:00 Nasal Cannula 2.0 04/24/19 08:00 98.4 69 18 146/67 (93) 94 69 04/24/19 08:00 2.0 04/24/19 05:16 70 158/62 (94) 04/24/19 05:16 158/62 04/24/19 04:00 2.0 04/24/19 04:00 96.9 70 20 125/78 (94) 97 04/24/19 01:32 80 18 97 Facial 30 04/24/19 00:00 2.0 04/24/19 00:00 97.5 75 20 135/89 (104) 95 04/23/19 22:08 70 147/82 (103) 04/23/19 22:06 147/82 04/23/19 20:41 70 127/83 04/23/19 20:00 70 20 98 Nasal Cannula 2.0 28 04/23/19 20:00 97.9 70 20 127/83 (98) 95 04/23/19 20:00 98 Nasal Cannula 2.0 28 04/23/19 20:00 2.0 04/23/19 16:23 97.8 73 20 134/64 (87) 99 04/23/19 16:00 2.0 04/23/19 15:10 84 21 99 Nasal Cannula 2.0 28 84 20 97 04/23/19 13:04 153/79 04/23/19 12:00 2.0 04/23/19 12:00 99.1 79 18 153/79 (103) 98 Intake and Output 04/23/19 04/24/19 18:59 06:59 Intake Total 55 ml 3360 ml Output Total 3001 ml Balance 55 ml 359 ml Intake Oral 360 ml IV Total 55 ml Hemodialysis 3000 ml Output Urine Total 1 ml Hemodialysis UF 3000 ml # Voids 1 # Bowel Movements 1 Current Medications Medications (Trade) Dose Ordered Sig/Toya Route PRN Reason Start Time Stop Time Status Last Admin Dose Admin Acetaminophen (Tylenol) 500 mg Q4H PRN ORAL Mild Pain/Temp > 100.5 04/21/19 18:03 05/21/19 18:02 Amlodipine Besylate (Norvasc) 10 mg DAILY ORAL 04/22/19 09:00 05/19/19 08:59 04/23/19 08:34 Aspirin (ASA) 81 mg DAILY ORAL 04/22/19 09:00 05/19/19 13:36 04/23/19 08:33 Atorvastatin Calcium (Lipitor) 10 mg BEDTIME ORAL 04/21/19 21:00 05/18/19 20:59 04/23/19 20:41 Azithromycin (Zithromax) 250 mg DAILY ORAL 04/23/19 09:00 04/30/19 08:59 04/23/19 08:34 Carvedilol (Coreg) 25 mg EVERY 12 HOURS ORAL 04/22/19 11:00 05/22/19 10:59 04/23/19 20:41 Ceftriaxone Sodium 1 gm/ Dextrose 55 ml @ 110 mls/hr Q24H IVPB 04/22/19 11:00 04/29/19 10:59 04/23/19 11:53 Dextrose (Dextrose 50%) 25 ml Q30M PRN IV Hypoglycemia 04/21/19 18:15 05/18/19 15:44 Dextrose (Dextrose 50%) 50 ml Q30M PRN IV Hypoglycemia 04/21/19 18:15 05/18/19 15:44 Docusate Sodium (Colace) 100 mg TID ORAL 04/21/19 18:05 05/21/19 18:04 04/23/19 17:20 Epoetin Panchito (Epoetin Panchito(ESRD on dialysis)) 3,000 unit THU-WED-THU SUBQ 04/22/19 21:00 05/20/19 20:59 04/22/19 21:14 Folic Acid (Folate) 3 mg DAILY ORAL 04/22/19 09:00 05/19/19 08:59 04/23/19 08:33 Gabapentin (Neurontin) 300 mg Q8HR ORAL 04/21/19 22:00 05/18/19 16:59 04/24/19 05:13 Guaifenesin/ Dextromethorphan (Robitussin DM Syrup) 5 ml Q6H PRN ORAL For Cough 04/21/19 18:03 05/21/19 18:02 Heparin Sodium (Porcine) (Heparin 5000 units/ml) 5,000 units EVERY 12 HOURS SUBQ 04/21/19 21:00 05/18/19 20:59 04/23/19 20:46 Hydralazine HCl (Apresoline) 25 mg Q4H PRN ORAL prn bp over 160 syst 04/21/19 18:04 05/21/19 18:03 Hydralazine HCl (Apresoline) 75 mg Q8HR ORAL 04/23/19 14:00 05/22/19 13:59 04/24/19 05:16 Insulin Aspart (NovoLOG) BEFORE MEALS AND HS SUBQ 04/21/19 21:00 05/18/19 16:29 04/24/19 06:10 Insulin Detemir (Levemir) 12 units BEDTIME SUBQ 04/22/19 21:00 05/19/19 20:59 04/23/19 20:48 Levothyroxine Sodium (Synthroid) 100 mcg DAILY@0630 ORAL 04/22/19 06:30 05/19/19 06:29 04/24/19 06:08 Metoclopramide HCl (Reglan) 10 mg Q6H PRN IVP Nausea & Vomiting 04/21/19 18:04 05/21/19 18:03 Pantoprazole (Protonix) 40 mg EVERY 12 HOURS ORAL 04/21/19 21:00 05/18/19 20:59 04/23/19 20:40 Sennosides (Senokot) 8.6 mg DAILY ORAL 04/22/19 09:00 05/19/19 08:59 04/23/19 08:34 Tramadol HCl (Ultram) 50 mg Q6H PRN ORAL pain 6 - 10 04/21/19 18:05 04/28/19 18:04 04/23/19 05:39 Height (Feet): 4 Height (Inches): 11.00 Weight (Pounds): 162 General Appearance: no apparent distress Cardiovascular: normal rate Respiratory/Chest: decreased breath sounds Abdomen: distended Francis Falk MD Apr 24, 2019 11:12
--- NOTE | 2019-04-24 11:31 | Infectious Diseases Prog Note ---
Assessment/Plan Assessment/Plan IMPRESSION: 1. Dyspnea, likely secondary to congestive hear failure. 2. Hypoxemic respiratory failure. 3. End-stage renal disease, on hemodialysis. 4. Diabetes mellitus. 5. Diastolic CHF. 6. Aortic stenosis. 7. Hypertension. 8. Anemia. 9. Leukopenia. RECOMMENDATIONS: 1. Continue Rocephin and Zithromax. 2. Can be discharge with PO Zithromax Subjective ROS Limited/Unobtainable: Yes Respiratory: Reports: no symptoms Cardiovascular: Reports: no symptoms Gastrointestinal/Abdominal: Reports: no symptoms Allergies: Coded Allergies: No Known Allergies (Unverified , 05/12/17) Objective Vital Signs Last 24 Hour Vital Signs Date Time Temp Pulse Resp B/P (MAP) Pulse Ox O2 Delivery O2 Flow Rate FiO2 04/24/19 09:59 97 Nasal Cannula 2.0 28 04/24/19 09:00 Nasal Cannula 2.0 04/24/19 08:00 98.4 69 18 146/67 (93) 94 69 04/24/19 08:00 2.0 04/24/19 05:16 70 158/62 (94) 04/24/19 05:16 158/62 04/24/19 04:00 2.0 04/24/19 04:00 96.9 70 20 125/78 (94) 97 04/24/19 01:32 80 18 97 Facial 30 04/24/19 00:00 2.0 04/24/19 00:00 97.5 75 20 135/89 (104) 95 04/23/19 22:08 70 147/82 (103) 04/23/19 22:06 147/82 04/23/19 20:41 70 127/83 04/23/19 20:00 70 20 98 Nasal Cannula 2.0 28 04/23/19 20:00 97.9 70 20 127/83 (98) 95 04/23/19 20:00 98 Nasal Cannula 2.0 28 04/23/19 20:00 2.0 04/23/19 16:23 97.8 73 20 134/64 (87) 99 04/23/19 16:00 2.0 04/23/19 15:10 84 21 99 Nasal Cannula 2.0 28 84 20 97 04/23/19 13:04 153/79 04/23/19 12:00 2.0 04/23/19 12:00 99.1 79 18 153/79 (103) 98 Height (Feet): 4 Height (Inches): 11.00 Weight (Pounds): 162 General Appearance: no acute distress HEENT: mucous membranes moist Respiratory/Chest: lungs clear, other - oxygen by nasal cannula Cardiovascular: normal rate Abdomen: soft, non tender Extremities: no edema Neurologic/Psychiatric: alert, oriented x 3, responsive Current Medications Medications (Trade) Dose Ordered Sig/Toya Route PRN Reason Start Time Stop Time Status Last Admin Dose Admin Acetaminophen (Tylenol) 500 mg Q4H PRN ORAL Mild Pain/Temp > 100.5 04/21/19 18:03 05/21/19 18:02 Amlodipine Besylate (Norvasc) 10 mg DAILY ORAL 04/22/19 09:00 05/19/19 08:59 04/23/19 08:34 Aspirin (ASA) 81 mg DAILY ORAL 04/22/19 09:00 05/19/19 13:36 04/23/19 08:33 Atorvastatin Calcium (Lipitor) 10 mg BEDTIME ORAL 04/21/19 21:00 05/18/19 20:59 04/23/19 20:41 Azithromycin (Zithromax) 250 mg DAILY ORAL 04/23/19 09:00 04/30/19 08:59 04/23/19 08:34 Carvedilol (Coreg) 25 mg EVERY 12 HOURS ORAL 04/22/19 11:00 05/22/19 10:59 04/23/19 20:41 Ceftriaxone Sodium 1 gm/ Dextrose 55 ml @ 110 mls/hr Q24H IVPB 04/22/19 11:00 04/29/19 10:59 04/23/19 11:53 Dextrose (Dextrose 50%) 25 ml Q30M PRN IV Hypoglycemia 04/21/19 18:15 05/18/19 15:44 Dextrose (Dextrose 50%) 50 ml Q30M PRN IV Hypoglycemia 04/21/19 18:15 05/18/19 15:44 Docusate Sodium (Colace) 100 mg TID ORAL 04/21/19 18:05 05/21/19 18:04 04/23/19 17:20 Epoetin Panchito (Epoetin Panchito(ESRD on dialysis)) 3,000 unit THU-THU-THU SUBQ 04/22/19 21:00 05/20/19 20:59 04/22/19 21:14 Folic Acid (Folate) 3 mg DAILY ORAL 04/22/19 09:00 05/19/19 08:59 04/23/19 08:33 Gabapentin (Neurontin) 300 mg Q8HR ORAL 04/21/19 22:00 05/18/19 16:59 04/24/19 05:13 Guaifenesin/ Dextromethorphan (Robitussin DM Syrup) 5 ml Q6H PRN ORAL For Cough 04/21/19 18:03 05/21/19 18:02 Heparin Sodium (Porcine) (Heparin 5000 units/ml) 5,000 units EVERY 12 HOURS SUBQ 04/21/19 21:00 05/18/19 20:59 04/23/19 20:46 Hydralazine HCl (Apresoline) 25 mg Q4H PRN ORAL prn bp over 160 syst 04/21/19 18:04 05/21/19 18:03 Hydralazine HCl (Apresoline) 75 mg Q8HR ORAL 04/23/19 14:00 05/22/19 13:59 04/24/19 05:16 Insulin Aspart (NovoLOG) BEFORE MEALS AND HS SUBQ 04/21/19 21:00 05/18/19 16:29 04/24/19 06:10 Insulin Detemir (Levemir) 12 units BEDTIME SUBQ 04/22/19 21:00 05/19/19 20:59 04/23/19 20:48 Levothyroxine Sodium (Synthroid) 100 mcg DAILY@0630 ORAL 04/22/19 06:30 05/19/19 06:29 04/24/19 06:08 Metoclopramide HCl (Reglan) 10 mg Q6H PRN IVP Nausea & Vomiting 04/21/19 18:04 05/21/19 18:03 Pantoprazole (Protonix) 40 mg EVERY 12 HOURS ORAL 04/21/19 21:00 05/18/19 20:59 04/23/19 20:40 Sennosides (Senokot) 8.6 mg DAILY ORAL 04/22/19 09:00 05/19/19 08:59 04/23/19 08:34 Tramadol HCl (Ultram) 50 mg Q6H PRN ORAL pain 6 - 10 04/21/19 18:05 04/28/19 18:04 04/23/19 05:39 Kalin Briseno MD Apr 24, 2019 11:31
[2019-04-24] MEDS: Azithromycin 250mg tab ORAL SCH (11:36)
[2019-04-24] MEDS: Aspirin Baby 81mg ORAL SCH (11:38)
[2019-04-24] MEDS: Carvedilol 25mg Tab ORAL SCH ×2 (11:38→20:24)
[2019-04-24] MEDS: Docusate 100mg cap ORAL SCH ×3 (11:38→17:21)
[2019-04-24] MEDS: Sennosides 8.6mg tab ORAL SCH (11:39)
[2019-04-24] MEDS: cefTRIAXone 1 GM in D5W 55 ML IVPB SCH (11:40)
[2019-04-24] MEDS: Heparin 5000 units/ml inj SUBQ SCH ×2 (11:42→20:26)
--- NOTE | 2019-04-24 12:25 | NUR ---
NURSE NOTES: not given colace at this time as previous dose was given late, due to pt receiving HD and HD nurse Krys asked to withhold all meds during procedure.
[2019-04-24] MEDS ORDERED: NS 275ml ONE (15:52)
[2019-04-24 16:00] VITALS: BP 165/76
--- NOTE | 2019-04-24 19:39 | NUR ---
HAND-OFF: Report given to SIDNEY Cleary.
[2019-04-24 20:00] VITALS: BP 155/68
--- NOTE | 2019-04-24 20:00 | NUR ---
NURSE NOTES: Pt received ambulating from bathroom to bed steady gait. O2 reapplied to patient. No c/o at this time. Call light in reach. Will monitor.
[2019-04-24] MEDS: Levemir Flexpen SUBQ SCH (20:27)
--- NOTE | 2019-04-24 21:14 | General Progress Note ---
Assessment/Plan Problem List: (1) Pulmonary congestion ICD Codes: R09.89 - Other specified symptoms and signs involving the circulatory and respiratory systems SNOMED: 86155671 (2) Pneumonia ICD Codes: J18.9 - Pneumonia, unspecified organism SNOMED: 285307706 (3) Renal failure ICD Codes: N19 - Unspecified kidney failure SNOMED: 05136396 (4) ESRD (end stage renal disease) ICD Codes: N18.6 - End stage renal disease SNOMED: 42425623 (5) Dyspnea ICD Codes: R06.00 - Dyspnea, unspecified SNOMED: 123642131 (6) Anemia in chronic kidney disease (CKD) ICD Codes: N18.9 - Chronic kidney disease, unspecified; D63.1 - Anemia in chronic kidney disease SNOMED: 405984112 Status: progressing Assessment/Plan: dyspnea on oxygen esrd on hd needs more diaylsis dc once cleared by renal Subjective ROS Limited/Unobtainable: Yes Allergies: Coded Allergies: No Known Allergies (Unverified , 05/12/17) Objective Last 24 Hour Vital Signs Date Time Temp Pulse Resp B/P (MAP) Pulse Ox O2 Delivery O2 Flow Rate FiO2 04/24/19 20:24 76 155/68 04/24/19 16:31 165/76 04/24/19 16:00 97.9 78 19 165/76 (105) 99 78 04/24/19 16:00 2.0 04/24/19 14:13 146/67 04/24/19 12:00 2.0 04/24/19 11:40 69 146/67 04/24/19 11:38 69 146/67 04/24/19 09:59 97 Nasal Cannula 2.0 28 04/24/19 09:00 Nasal Cannula 2.0 04/24/19 08:00 98.4 69 18 146/67 (93) 94 69 04/24/19 08:00 2.0 04/24/19 05:16 70 158/62 (94) 04/24/19 05:16 158/62 04/24/19 04:00 2.0 04/24/19 04:00 96.9 70 20 125/78 (94) 97 04/24/19 01:32 80 18 97 Facial 30 04/24/19 00:00 2.0 9/22/19 00:00 97.5 75 20 135/89 (104) 95 04/23/19 22:08 70 147/82 (103) 04/23/19 22:06 147/82 Intake and Output 04/23/19 04/24/19 19:00 07:00 Intake Total 55 ml 3360 ml Output Total 3001 ml Balance 55 ml 359 ml Intake Oral 360 ml IV Total 55 ml Hemodialysis 3000 ml Output Urine Total 1 ml Hemodialysis UF 3000 ml # Voids 1 # Bowel Movements 1 Height (Feet): 4 Height (Inches): 11.00 Weight (Pounds): 162 Cardiovascular: normal rate Respiratory/Chest: lungs clear Abdomen: soft Makenna Daniel MD Apr 24, 2019 21:13
[2019-04-25] VITALS: BP 138/60
[2019-04-25 04:00] VITALS: BP 152/66
[2019-04-25] MEDS: HydrALAZINE 50mg tab ORAL SCH ×3 (05:42→22:49)
[2019-04-25] MEDS: NovoLOG Insulin Flexpen SUBQ SCH ×4 (05:45→20:35)
[2019-04-25 07:03] LABS: BASOPHILS % (AUTO) 1.5 % (0.0-2.0); EOSINOPHILS % (AUTO) 3.4 % (0.0-3.0); HEMATOCRIT 30.3 % (37.0-47.0); HEMOGLOBIN 9.7 G/DL (12.0-16.0); MEAN CORPUSCULAR VOLUME 93 FL (80-99); MONOCYTES % (AUTO) 11.6 % (1.0-10.0); NEUTROPHILS % (AUTO) 69.6 % (45.0-75.0); PLATELET COUNT 232 K/UL (150-450); RED BLOOD COUNT 3.24 M/UL (4.20-5.40); RED CELL DISTRIBUTION WIDTH 14.3 % (11.6-14.8); WHITE BLOOD COUNT 3.9 K/UL (4.8-10.8)
--- NOTE | 2019-04-25 07:23 | NUR ---
HAND-OFF: Report given to Aniya LITTLE.
[2019-04-25 07:35] LABS: ALANINE AMINOTRANSFERASE 9 U/L (12-78); ALBUMIN 3.5 G/DL (3.4-5.0); ALBUMIN/GLOBULIN RATIO 0.9 (1.0-2.7); ALKALINE PHOSPHATASE 95 U/L (46-116); ANION GAP 10 mmol/L (5-15); ASPARTATE AMINO TRANSFERASE 16 U/L (15-37); BILIRUBIN,TOTAL 0.4 MG/DL (0.2-1.0); BLOOD UREA NITROGEN 41 mg/dL (7-18); CALCIUM 7.9 MG/DL (8.5-10.1); CARBON DIOXIDE 29 MMOL/L (21-32); CHLORIDE 99 MMOL/L (98-107); CREATININE 4.9 MG/DL (0.55-1.30); PHOSPHORUS 4.7 MG/DL (2.5-4.9); POTASSIUM 3.7 MMOL/L (3.5-5.1); SODIUM 137 MMOL/L (136-145)
[2019-04-25 08:00] VITALS: BP 159/70
--- NOTE | 2019-04-25 08:16 | Pulmonology Progress Note ---
Assessment/Plan Assessment/Plan Impression: Respiratory distress- stable Pulmonary congestion ESRD (end stage renal disease) on HD Hypertension Diabetes CAD Plan: HD per Renal NC O2 PRN HHN PRN Monitor labs and adjust therapy keep negative For HD dc planning close follow up for change in respiratory status impression, plan, and exam edited and reviewed in detail care discussed with RN Subjective Allergies: Coded Allergies: No Known Allergies (Unverified , 05/12/17) Subjective care noted comfortable off oxygen tolerating HD Objective Last 24 Hour Vital Signs Date Time Temp Pulse Resp B/P (MAP) Pulse Ox O2 Delivery O2 Flow Rate FiO2 04/25/19 05:42 152/66 04/25/19 04:00 97.8 76 19 152/66 (94) 97 04/25/19 03:26 2.0 04/25/19 03:15 81 18 97 Facial 30 04/25/19 00:00 97.5 90 19 138/60 (86) 100 04/24/19 23:49 84 16 95 Facial 30 04/24/19 22:17 153/73 04/24/19 21:13 98 Nasal Cannula 2.0 28 04/24/19 21:00 Nasal Cannula 2.0 04/24/19 20:24 76 155/68 04/24/19 20:00 99.0 76 19 155/68 (97) 95 04/24/19 20:00 2.0 04/24/19 16:31 165/76 04/24/19 16:00 97.9 78 19 165/76 (105) 99 78 04/24/19 16:00 2.0 04/24/19 14:13 146/67 04/24/19 12:00 2.0 04/24/19 11:40 69 146/67 04/24/19 11:38 69 146/67 04/24/19 09:59 97 Nasal Cannula 2.0 28 04/24/19 09:00 Nasal Cannula 2.0 Intake and Output 04/24/19 04/25/19 19:00 07:00 Intake Total 480 ml Balance 480 ml Intake Oral 480 ml Objective WDWN NAD clear breath sounds bilaterally without rhonchi or wheeze [id number] without MRG NABS nontender no HSM no CCE nonfocal Laboratory Tests 04/25/19 05:30: White Blood Count 3.9L, Red Blood Count 3.24L, Hemoglobin 9.7L, Hematocrit 30.3L , Mean Corpuscular Volume 93, Mean Corpuscular Hemoglobin 30.0, Mean Corpuscular Hemoglobin Concent 32.1, Red Cell Distribution Width 14.3, Platelet Count 232, Mean Platelet Volume 6.4L, Neutrophils (%) (Auto) 69.6, Lymphocytes ( %) (Auto) 14.0L, Monocytes (%) (Auto) 11.6H, Eosinophils (%) (Auto) 3.4H, Basophils (%) (Auto) 1.5, Sodium Level 137, Potassium Level 3.7, Chloride Level 99, Carbon Dioxide Level 29, Anion Gap 10, Blood Urea Nitrogen 41H, Creatinine 4.9H, Estimat Glomerular Filtration Rate 8.8, Glucose Level 127H, Calcium Level 7.9L, Phosphorus Level 4.7, Total Bilirubin 0.4, Aspartate Amino Transf (AST/ SGOT) 16, Alanine Aminotransferase (ALT/SGPT) 9L, Alkaline Phosphatase 95, C- Reactive Protein, Quantitative 1.4H, Pro-B-Type Natriuretic Peptide > 38130H, Total Protein 7.2, Albumin 3.5, Globulin 3.7, Albumin/Globulin Ratio 0.9L Current Medications Medications (Trade) Dose Ordered Sig/Toya Route PRN Reason Start Time Stop Time Status Last Admin Dose Admin Acetaminophen (Tylenol) 500 mg Q4H PRN ORAL Mild Pain/Temp > 100.5 04/21/19 18:03 05/21/19 18:02 Amlodipine Besylate (Norvasc) 10 mg DAILY ORAL 04/22/19 09:00 05/19/19 08:59 04/24/19 11:40 Aspirin (ASA) 81 mg DAILY ORAL 04/22/19 09:00 05/19/19 13:36 04/24/19 11:38 Atorvastatin Calcium (Lipitor) 10 mg BEDTIME ORAL 04/21/19 21:00 05/18/19 20:59 04/24/19 20:24 Azithromycin (Zithromax) 250 mg DAILY ORAL 04/23/19 09:00 04/30/19 08:59 04/24/19 11:36 Carvedilol (Coreg) 25 mg EVERY 12 HOURS ORAL 04/22/19 11:00 05/22/19 10:59 04/24/19 20:24 Ceftriaxone Sodium 1 gm/ Dextrose 55 ml @ 110 mls/hr Q24H IVPB 04/22/19 11:00 04/29/19 10:59 04/24/19 11:40 Dextrose (Dextrose 50%) 25 ml Q30M PRN IV Hypoglycemia 04/21/19 18:15 05/18/19 15:44 Dextrose (Dextrose 50%) 50 ml Q30M PRN IV Hypoglycemia 04/21/19 18:15 05/18/19 15:44 Docusate Sodium (Colace) 100 mg TID ORAL 04/21/19 18:05 05/21/19 18:04 04/24/19 17:21 Epoetin Panchito (Epoetin Panchito(ESRD on dialysis)) 3,000 unit THU-THU-THU SUBQ 04/22/19 21:00 05/20/19 20:59 04/22/19 21:14 Folic Acid (Folate) 3 mg DAILY ORAL 04/22/19 09:00 05/19/19 08:59 04/24/19 11:39 Gabapentin (Neurontin) 300 mg Q8HR ORAL 04/21/19 22:00 05/18/19 16:59 04/25/19 05:42 Guaifenesin/ Dextromethorphan (Robitussin DM Syrup) 5 ml Q6H PRN ORAL For Cough 04/21/19 18:03 05/21/19 18:02 Heparin Sodium (Porcine) (Heparin 5000 units/ml) 5,000 units EVERY 12 HOURS SUBQ 04/21/19 21:00 05/18/19 20:59 04/24/19 20:26 Hydralazine HCl (Apresoline) 25 mg Q4H PRN ORAL prn bp over 160 syst 04/21/19 18:04 05/21/19 18:03 04/24/19 16:31 Hydralazine HCl (Apresoline) 75 mg Q8HR ORAL 04/23/19 14:00 05/22/19 13:59 04/25/19 05:42 Insulin Aspart (NovoLOG) BEFORE MEALS AND HS SUBQ 04/21/19 21:00 05/18/19 16:29 04/25/19 05:45 Insulin Detemir (Levemir) 12 units BEDTIME SUBQ 04/22/19 21:00 05/19/19 20:59 04/24/19 20:27 Levothyroxine Sodium (Synthroid) 100 mcg DAILY@0630 ORAL 04/22/19 06:30 05/19/19 06:29 04/25/19 05:42 Metoclopramide HCl (Reglan) 10 mg Q6H PRN IVP Nausea & Vomiting 04/21/19 18:04 05/21/19 18:03 Pantoprazole (Protonix) 40 mg EVERY 12 HOURS ORAL 04/21/19 21:00 05/18/19 20:59 04/24/19 20:24 Sennosides (Senokot) 8.6 mg DAILY ORAL 04/22/19 09:00 05/19/19 08:59 04/24/19 11:39 Tramadol HCl (Ultram) 50 mg Q6H PRN ORAL pain 6 - 10 04/21/19 18:05 04/28/19 18:04 04/23/19 05:39 Bryn Ibarra MD Apr 25, 2019 08:16
[2019-04-25] MEDS: Carvedilol 25mg Tab ORAL SCH ×2 (09:09→20:22)
[2019-04-25] MEDS: Docusate 100mg cap ORAL SCH ×3 (09:09→17:45)
[2019-04-25] MEDS: Sennosides 8.6mg tab ORAL SCH (09:09)
[2019-04-25] MEDS: Aspirin Baby 81mg ORAL SCH (09:10)
[2019-04-25] MEDS: Azithromycin 250mg tab ORAL SCH (09:10)
[2019-04-25] MEDS: Heparin 5000 units/ml inj SUBQ SCH ×2 (09:11→20:23)
--- NOTE | 2019-04-25 09:18 | Hematology/Onc Progress Note ---
Assessment/Plan Assessment/Plan Assessment/Recs 1. Anemia due to underlying chronic disease. Have reviewed prior workup, ferritin is >1000, though percent saturation Tsat <30, but not recommended for further iron --> Continue to closely monitor. --> Transfuse if hgb <7 --> ferritin is >600, therefore hold off oniron --> continue epogen, has been started with hd --> hgb trend 9.6-->9.4-->9.7 --> monitor for gi bleed 2. Leukopenia likely reactive process v infection --> hepatitis and hiv prior NEGATIVE --> neutropenic precautions if ANC <1500 --> trending stable --> imaging reviewed and no hsm / cirrhosis noted prior --> wbc trend 3.1-->3.4-->2.6-->3.9 3. End-stage renal disease, on hemodialysis three times a week. continue mwf --> renal consulted --> hd for 04/21, 04/23 4. Coronary artery disease. --> cards reviewed --> with fluid overload may need diuresis --> with less sob 5. History of anemia due to low B12, low iron. --> b12 is currently within normal limits --> reobtain q6mo 6. Dizziness and unsteady gait. 7. DVt ppsx with heparin sq Greatly appreciate consultation. Subjective Constitutional: Denies: no symptoms, chills, fever, malaise, weakness, other HEENT: Denies: no symptoms, eye pain, blurred vision, tearing, double vision, ear pain, ear discharge, nose pain, nose congestion, throat pain, throat swelling, mouth pain, mouth swelling, other Cardiovascular: Denies: no symptoms, chest pain, edema, irregular heart rate, lightheadedness, palpitations, syncope, other Respiratory: Denies: no symptoms, cough, shortness of breath, SOB with excertion, SOB at rest, sputum, wheezing, other Genitourinary: Denies: no symptoms, burning, discharge, frequency, flank pain, hematuria, incontinence, pain, urgency, other Endocrine: Denies: no symptoms, excessive sweating, flushing, intolerance to cold, intolerance to heat, increased hunger, increased thirst, increased urine, unexplained weight gain, unexplained weight loss, other Allergies: Coded Allergies: No Known Allergies (Unverified , 05/12/17) Subjective 04/20: bs was low o/n, 54 dw rn, and given oj, labs reviewed 04/21: getting hd, no events, no bleeding, no f/c 04/22: on 2l nc, no bleeding or chills, using bipap prn basis 04/23: no events, hd for today, has been ordered with vip hd 04/25: no bleeding, no major events, hd as per renal, labs noted Objective Objective Current Medications Medications (Trade) Dose Ordered Sig/Toya Route PRN Reason Start Time Stop Time Status Last Admin Dose Admin Acetaminophen (Tylenol) 500 mg Q4H PRN ORAL Mild Pain/Temp > 100.5 04/21/19 18:03 05/21/19 18:02 Amlodipine Besylate (Norvasc) 10 mg DAILY ORAL 04/22/19 09:00 05/19/19 08:59 04/25/19 09:10 Aspirin (ASA) 81 mg DAILY ORAL 04/22/19 09:00 05/19/19 13:36 04/25/19 09:10 Atorvastatin Calcium (Lipitor) 10 mg BEDTIME ORAL 04/21/19 21:00 05/18/19 20:59 04/24/19 20:24 Azithromycin (Zithromax) 250 mg DAILY ORAL 04/23/19 09:00 04/30/19 08:59 04/25/19 09:10 Carvedilol (Coreg) 25 mg EVERY 12 HOURS ORAL 04/22/19 11:00 05/22/19 10:59 04/25/19 09:09 Ceftriaxone Sodium 1 gm/ Dextrose 55 ml @ 110 mls/hr Q24H IVPB 04/22/19 11:00 04/29/19 10:59 04/24/19 11:40 Dextrose (Dextrose 50%) 25 ml Q30M PRN IV Hypoglycemia 04/21/19 18:15 05/18/19 15:44 Dextrose (Dextrose 50%) 50 ml Q30M PRN IV Hypoglycemia 04/21/19 18:15 05/18/19 15:44 Docusate Sodium (Colace) 100 mg TID ORAL 04/21/19 18:05 05/21/19 18:04 04/25/19 09:09 Epoetin Panchito (Epoetin Panchito(ESRD on dialysis)) 3,000 unit THU-THU-THU SUBQ 04/22/19 21:00 05/20/19 20:59 04/22/19 21:14 Folic Acid (Folate) 3 mg DAILY ORAL 04/22/19 09:00 05/19/19 08:59 04/25/19 09:09 Gabapentin (Neurontin) 300 mg Q8HR ORAL 04/21/19 22:00 05/18/19 16:59 04/25/19 05:42 Guaifenesin/ Dextromethorphan (Robitussin DM Syrup) 5 ml Q6H PRN ORAL For Cough 04/21/19 18:03 05/21/19 18:02 Heparin Sodium (Porcine) (Heparin 5000 units/ml) 5,000 units EVERY 12 HOURS SUBQ 04/21/19 21:00 05/18/19 20:59 04/25/19 09:11 Hydralazine HCl (Apresoline) 25 mg Q4H PRN ORAL prn bp over 160 syst 04/21/19 18:04 05/21/19 18:03 04/24/19 16:31 Hydralazine HCl (Apresoline) 75 mg Q8HR ORAL 04/23/19 14:00 05/22/19 13:59 04/25/19 05:42 Insulin Aspart (NovoLOG) BEFORE MEALS AND HS SUBQ 04/21/19 21:00 05/18/19 16:29 04/25/19 05:45 Insulin Detemir (Levemir) 12 units BEDTIME SUBQ 04/22/19 21:00 05/19/19 20:59 04/24/19 20:27 Levothyroxine Sodium (Synthroid) 100 mcg DAILY@0630 ORAL 04/22/19 06:30 05/19/19 06:29 04/25/19 05:42 Metoclopramide HCl (Reglan) 10 mg Q6H PRN IVP Nausea & Vomiting 04/21/19 18:04 05/21/19 18:03 Pantoprazole (Protonix) 40 mg EVERY 12 HOURS ORAL 04/21/19 21:00 05/18/19 20:59 04/25/19 09:09 Sennosides (Senokot) 8.6 mg DAILY ORAL 04/22/19 09:00 05/19/19 08:59 04/25/19 09:09 Tramadol HCl (Ultram) 50 mg Q6H PRN ORAL pain 6 - 10 04/21/19 18:05 04/28/19 18:04 04/23/19 05:39 Last 24 Hour Vital Signs Date Time Temp Pulse Resp B/P (MAP) Pulse Ox O2 Delivery O2 Flow Rate FiO2 04/25/19 09:10 87 159/70 04/25/19 09:09 87 159/70 04/25/19 08:00 99.7 87 17 159/70 (99) 96 04/25/19 08:00 2.0 04/25/19 05:42 152/66 04/25/19 04:00 97.8 76 19 152/66 (94) 97 04/25/19 03:26 2.0 04/25/19 03:15 81 18 97 Facial 30 04/25/19 00:00 97.5 90 19 138/60 (86) 100 04/24/19 23:49 84 16 95 Facial 30 04/24/19 22:17 153/73 04/24/19 21:13 98 Nasal Cannula 2.0 28 04/24/19 21:00 Nasal Cannula 2.0 04/24/19 20:24 76 155/68 04/24/19 20:00 99.0 76 19 155/68 (97) 95 04/24/19 20:00 2.0 04/24/19 16:31 165/76 04/24/19 16:00 97.9 78 19 165/76 (105) 99 78 04/24/19 16:00 2.0 04/24/19 14:13 146/67 04/24/19 12:00 2.0 04/24/19 11:40 69 146/67 04/24/19 11:38 69 146/67 04/24/19 09:59 97 Nasal Cannula 2.0 28 04/24/19 09:00 Nasal Cannula 2.0 04/24/19 08:00 98.4 69 18 146/67 (93) 94 69 04/24/19 08:00 2.0 04/24/19 05:16 70 158/62 (94) 04/24/19 05:16 158/62 04/24/19 04:00 2.0 04/24/19 04:00 96.9 70 20 125/78 (94) 97 04/24/19 01:32 80 18 97 Facial 30 04/24/19 00:00 2.0 04/24/19 00:00 97.5 75 20 135/89 (104) 95 04/23/19 22:08 70 147/82 (103) 04/23/19 22:06 147/82 04/23/19 20:41 70 127/83 04/23/19 20:00 70 20 98 Nasal Cannula 2.0 28 04/23/19 20:00 97.9 70 20 127/83 (98) 95 04/23/19 20:00 98 Nasal Cannula 2.0 28 04/23/19 20:00 2.0 04/23/19 16:23 97.8 73 20 134/64 (87) 99 04/23/19 16:00 2.0 04/23/19 15:10 84 21 99 Nasal Cannula 2.0 28 84 20 97 04/23/19 13:04 153/79 04/23/19 12:00 2.0 04/23/19 12:00 99.1 79 18 153/79 (103) 98 04/23/19 11:00 79 21 98 Nasal Cannula 2.0 28 76 21 95 Intake and Output 04/24/19 04/25/19 19:00 07:00 Intake Total 480 ml Balance 480 ml Intake Oral 480 ml Labs Test 04/22/19 15:15 04/23/19 04:55 04/25/19 05:30 Arterial Blood pH 7.392 (7.350-7.450) Arterial Blood Partial Pressure CO2 39.4 mmHg (35.0-45.0) Arterial Blood Partial Pressure O2 91.1 mmHg (75.0-100.0) Arterial Blood HCO3 23.4 mmol/L (22.0-26.0) Arterial Blood Oxygen Saturation 96.9 % (95-100) Arterial Blood Base Excess -1.3 (-2-2) Faheem Test Positive White Blood Count 2.6 K/UL (4.8-10.8) 3.9 K/UL (4.8-10.8) Red Blood Count 3.06 M/UL (4.20-5.40) 3.24 M/UL (4.20-5.40) Hemoglobin 9.4 G/DL (12.0-16.0) 9.7 G/DL (12.0-16.0) Hematocrit 28.5 % (37.0-47.0) 30.3 % (37.0-47.0) Mean Corpuscular Volume 93 FL (80-99) 93 FL (80-99) Mean Corpuscular Hemoglobin 30.8 PG (27.0-31.0) 30.0 PG (27.0-31.0) Mean Corpuscular Hemoglobin Concent 33.0 G/DL (32.0-36.0) 32.1 G/DL (32.0-36.0) Red Cell Distribution Width 13.9 % (11.6-14.8) 14.3 % (11.6-14.8) Platelet Count 195 K/UL (150-450) 232 K/UL (150-450) Mean Platelet Volume 6.9 FL (6.5-10.1) 6.4 FL (6.5-10.1) Neutrophils (%) (Auto) % (45.0-75.0) 69.6 % (45.0-75.0) Lymphocytes (%) (Auto) % (20.0-45.0) 14.0 % (20.0-45.0) Monocytes (%) (Auto) % (1.0-10.0) 11.6 % (1.0-10.0) Eosinophils (%) (Auto) % (0.0-3.0) 3.4 % (0.0-3.0) Basophils (%) (Auto) % (0.0-2.0) 1.5 % (0.0-2.0) Differential Total Cells Counted 100 Neutrophils % (Manual) 73 % (45-75) Lymphocytes % (Manual) 17 % (20-45) Monocytes % (Manual) 10 % (1-10) Eosinophils % (Manual) 0 % (0-3) Basophils % (Manual) 0 % (0-2) Band Neutrophils 0 % (0-8) Platelet Estimate Adequate Platelet Morphology Normal Red Blood Cell Morphology Normal Sodium Level 135 MMOL/L (136-145) 137 MMOL/L (136-145) Potassium Level 4.1 MMOL/L (3.5-5.1) 3.7 MMOL/L (3.5-5.1) Chloride Level 98 MMOL/L (98-107) 99 MMOL/L (98-107) Carbon Dioxide Level 30 MMOL/L (21-32) 29 MMOL/L (21-32) Anion Gap 7 mmol/L (5-15) 10 mmol/L (5-15) Blood Urea Nitrogen 42 mg/dL (7-18) 41 mg/dL (7-18) Creatinine 4.5 MG/DL (0.55-1.30) 4.9 MG/DL (0.55-1.30) Estimat Glomerular Filtration Rate 9.6 mL/min (>60) 8.8 mL/min (>60) Glucose Level 272 MG/DL (74-106) 127 MG/DL (74-106) Calcium Level 8.0 MG/DL (8.5-10.1) 7.9 MG/DL (8.5-10.1) Phosphorus Level 4.0 MG/DL (2.5-4.9) 4.7 MG/DL (2.5-4.9) Magnesium Level 2.0 MG/DL (1.8-2.4) Total Bilirubin 0.5 MG/DL (0.2-1.0) 0.4 MG/DL (0.2-1.0) Aspartate Amino Transf (AST/SGOT) 16 U/L (15-37) 16 U/L (15-37) Alanine Aminotransferase (ALT/SGPT) 11 U/L (12-78) 9 U/L (12-78) Alkaline Phosphatase 130 U/L (46-116) 95 U/L (46-116) C-Reactive Protein, Quantitative 2.4 mg/dL (0.00-0.90) 1.4 mg/dL (0.00-0.90) Pro-B-Type Natriuretic Peptide > 39225 pg/mL (0-125) > 16415 pg/mL (0-125) Total Protein 7.5 G/DL (6.4-8.2) 7.2 G/DL (6.4-8.2) Albumin 3.6 G/DL (3.4-5.0) 3.5 G/DL (3.4-5.0) Globulin 3.9 g/dL 3.7 g/dL Albumin/Globulin Ratio 0.9 (1.0-2.7) 0.9 (1.0-2.7) Height (Feet): 4 Height (Inches): 11.00 Weight (Pounds): 162 Objective VITAL SIGNS: Reviewed. GENERAL: No distress. PULMONARY: Decreased breath sounds. ++ BIPAP CARDIOVASCULAR: Regular rate. No S3 or S4. ABDOMEN: Soft, nontender, and nondistended. EXTREMITIES: 1+ edema noted . ++ Left AVS Carl Daniels MD Apr 25, 2019 09:18
[2019-04-25] MEDS: cefTRIAXone 1 GM in D5W 55 ML IVPB SCH (11:31)
--- NOTE | 2019-04-25 11:58 | Nephrology Progress Note ---
Assessment/Plan Problem List: (1) ESRD (end stage renal disease) (2) Respiratory distress (3) Anemia in chronic kidney disease (CKD) (4) Diabetic nephropathy with proteinuria (5) Hypertensive kidney disease Assessment ESRD Pulm EDema DM HTN Anemia Low B12 and Iron by history CAD . Plan CXR BP meds- adjusted stop lisinopril due to cough- start Rocephin one dose solumedrol- HD in am 04/26 2D Echo Ej Fx 50 % Pulm support per orders ? DC in am Subjective ROS Limited/Unobtainable: No Constitutional: Reports: malaise Objective Objective Last 24 Hour Vital Signs Date Time Temp Pulse Resp B/P (MAP) Pulse Ox O2 Delivery O2 Flow Rate FiO2 04/25/19 09:10 87 159/70 04/25/19 09:09 87 159/70 04/25/19 08:10 95 Nasal Cannula 2.0 28 04/25/19 08:00 99.7 87 17 159/70 (99) 96 04/25/19 08:00 2.0 04/25/19 05:42 152/66 04/25/19 04:00 97.8 76 19 152/66 (94) 97 04/25/19 03:26 2.0 04/25/19 03:15 81 18 97 Facial 30 04/25/19 00:00 97.5 90 19 138/60 (86) 100 04/24/19 23:49 84 16 95 Facial 30 04/24/19 22:17 153/73 04/24/19 21:13 98 Nasal Cannula 2.0 28 04/24/19 21:00 Nasal Cannula 2.0 04/24/19 20:24 76 155/68 04/24/19 20:00 99.0 76 19 155/68 (97) 95 04/24/19 20:00 2.0 04/24/19 16:31 165/76 04/24/19 16:00 97.9 78 19 165/76 (105) 99 78 04/24/19 16:00 2.0 04/24/19 14:13 146/67 04/24/19 12:00 2.0 Intake and Output 04/24/19 04/25/19 19:00 07:00 Intake Total 480 ml Balance 480 ml Intake Oral 480 ml Laboratory Tests 04/25/19 05:30: White Blood Count 3.9L, Red Blood Count 3.24L, Hemoglobin 9.7L, Hematocrit 30.3L , Mean Corpuscular Volume 93, Mean Corpuscular Hemoglobin 30.0, Mean Corpuscular Hemoglobin Concent 32.1, Red Cell Distribution Width 14.3, Platelet Count 232, Mean Platelet Volume 6.4L, Neutrophils (%) (Auto) 69.6, Lymphocytes ( %) (Auto) 14.0L, Monocytes (%) (Auto) 11.6H, Eosinophils (%) (Auto) 3.4H, Basophils (%) (Auto) 1.5, Sodium Level 137, Potassium Level 3.7, Chloride Level 99, Carbon Dioxide Level 29, Anion Gap 10, Blood Urea Nitrogen 41H, Creatinine 4.9H, Estimat Glomerular Filtration Rate 8.8, Glucose Level 127H, Calcium Level 7.9L, Phosphorus Level 4.7, Total Bilirubin 0.4, Aspartate Amino Transf (AST/ SGOT) 16, Alanine Aminotransferase (ALT/SGPT) 9L, Alkaline Phosphatase 95, C- Reactive Protein, Quantitative 1.4H, Pro-B-Type Natriuretic Peptide > 72879P, Total Protein 7.2, Albumin 3.5, Globulin 3.7, Albumin/Globulin Ratio 0.9L Height (Feet): 4 Height (Inches): 11.00 Weight (Pounds): 162 General Appearance: no apparent distress Respiratory/Chest: decreased breath sounds, rhonchi - bilaterally - bases Objective no change Francis Falk MD Apr 25, 2019 11:57
[2019-04-25 12:00] VITALS: BP 147/76
--- NOTE | 2019-04-25 13:15 | NUR ---
NURSE NOTES: contacted [facility] Nephrology, spoken to [facility] re: HD ordered for tomorrow 04/26/19.
--- NOTE | 2019-04-25 13:58 | Infectious Diseases Prog Note ---
Assessment/Plan Assessment/Plan IMPRESSION: 1. Dyspnea, likely secondary to congestive hear failure. 2. Hypoxemic respiratory failure. 3. End-stage renal disease, on hemodialysis. 4. Diabetes mellitus. 5. Diastolic CHF. 6. Aortic stenosis. 7. Hypertension. 8. Anemia. 9. Leukopenia. RECOMMENDATIONS: 1. Continue Rocephin and Zithromax X 1 day Subjective ROS Limited/Unobtainable: Yes Constitutional: Reports: anorexia Respiratory: Reports: no symptoms Gastrointestinal/Abdominal: Reports: no symptoms Allergies: Coded Allergies: No Known Allergies (Unverified , 05/12/17) Objective Vital Signs Last 24 Hour Vital Signs Date Time Temp Pulse Resp B/P (MAP) Pulse Ox O2 Delivery O2 Flow Rate FiO2 04/25/19 13:45 147/76 04/25/19 12:00 98.9 81 18 147/76 (99) 97 04/25/19 09:10 87 159/70 04/25/19 09:09 87 159/70 04/25/19 09:00 Nasal Cannula 2.0 04/25/19 08:10 95 Nasal Cannula 2.0 28 04/25/19 08:00 99.7 87 17 159/70 (99) 96 04/25/19 08:00 2.0 04/25/19 05:42 152/66 04/25/19 04:00 97.8 76 19 152/66 (94) 97 04/25/19 03:26 2.0 04/25/19 03:15 81 18 97 Facial 30 04/25/19 00:00 97.5 90 19 138/60 (86) 100 04/24/19 23:49 84 16 95 Facial 30 04/24/19 22:17 153/73 04/24/19 21:13 98 Nasal Cannula 2.0 28 04/24/19 21:00 Nasal Cannula 2.0 04/24/19 20:24 76 155/68 04/24/19 20:00 99.0 76 19 155/68 (97) 95 04/24/19 20:00 2.0 04/24/19 16:31 165/76 04/24/19 16:00 97.9 78 19 165/76 (105) 99 78 04/24/19 16:00 2.0 04/24/19 14:13 146/67 Height (Feet): 4 Height (Inches): 11.00 Weight (Pounds): 169 General Appearance: no acute distress HEENT: mucous membranes moist Respiratory/Chest: lungs clear Cardiovascular: normal rate Abdomen: soft, non tender Extremities: no edema Neurologic/Psychiatric: alert, oriented x 3, responsive Laboratory Tests Test 04/25/19 05:30 White Blood Count 3.9 K/UL (4.8-10.8) L Red Blood Count 3.24 M/UL (4.20-5.40) L Hemoglobin 9.7 G/DL (12.0-16.0) L Hematocrit 30.3 % (37.0-47.0) L Mean Corpuscular Volume 93 FL (80-99) Mean Corpuscular Hemoglobin 30.0 PG (27.0-31.0) Mean Corpuscular Hemoglobin Concent 32.1 G/DL (32.0-36.0) Red Cell Distribution Width 14.3 % (11.6-14.8) Platelet Count 232 K/UL (150-450) Mean Platelet Volume 6.4 FL (6.5-10.1) L Neutrophils (%) (Auto) 69.6 % (45.0-75.0) Lymphocytes (%) (Auto) 14.0 % (20.0-45.0) L Monocytes (%) (Auto) 11.6 % (1.0-10.0) H Eosinophils (%) (Auto) 3.4 % (0.0-3.0) H Basophils (%) (Auto) 1.5 % (0.0-2.0) Sodium Level 137 MMOL/L (136-145) Potassium Level 3.7 MMOL/L (3.5-5.1) Chloride Level 99 MMOL/L (98-107) Carbon Dioxide Level 29 MMOL/L (21-32) Anion Gap 10 mmol/L (5-15) Blood Urea Nitrogen 41 mg/dL (7-18) H Creatinine 4.9 MG/DL (0.55-1.30) H Estimat Glomerular Filtration Rate 8.8 mL/min (>60) Glucose Level 127 MG/DL (74-106) H Calcium Level 7.9 MG/DL (8.5-10.1) L Phosphorus Level 4.7 MG/DL (2.5-4.9) Total Bilirubin 0.4 MG/DL (0.2-1.0) Aspartate Amino Transf (AST/SGOT) 16 U/L (15-37) Alanine Aminotransferase (ALT/SGPT) 9 U/L (12-78) L Alkaline Phosphatase 95 U/L (46-116) C-Reactive Protein, Quantitative 1.4 mg/dL (0.00-0.90) H Pro-B-Type Natriuretic Peptide > 36496 pg/mL (0-125) H Total Protein 7.2 G/DL (6.4-8.2) Albumin 3.5 G/DL (3.4-5.0) Globulin 3.7 g/dL Albumin/Globulin Ratio 0.9 (1.0-2.7) L Current Medications Medications (Trade) Dose Ordered Sig/Toya Route PRN Reason Start Time Stop Time Status Last Admin Dose Admin Acetaminophen (Tylenol) 500 mg Q4H PRN ORAL Mild Pain/Temp > 100.5 04/21/19 18:03 05/21/19 18:02 Amlodipine Besylate (Norvasc) 10 mg DAILY ORAL 04/22/19 09:00 05/19/19 08:59 04/25/19 09:10 Aspirin (ASA) 81 mg DAILY ORAL 04/22/19 09:00 05/19/19 13:36 04/25/19 09:10 Atorvastatin Calcium (Lipitor) 10 mg BEDTIME ORAL 04/21/19 21:00 05/18/19 20:59 04/24/19 20:24 Azithromycin (Zithromax) 250 mg DAILY ORAL 04/23/19 09:00 04/30/19 08:59 04/25/19 09:10 Carvedilol (Coreg) 25 mg EVERY 12 HOURS ORAL 04/22/19 11:00 05/22/19 10:59 04/25/19 09:09 Ceftriaxone Sodium 1 gm/ Dextrose 55 ml @ 110 mls/hr Q24H IVPB 04/22/19 11:00 04/29/19 10:59 04/25/19 11:31 Dextrose (Dextrose 50%) 25 ml Q30M PRN IV Hypoglycemia 04/21/19 18:15 05/18/19 15:44 Dextrose (Dextrose 50%) 50 ml Q30M PRN IV Hypoglycemia 04/21/19 18:15 05/18/19 15:44 Docusate Sodium (Colace) 100 mg TID ORAL 04/21/19 18:05 05/21/19 18:04 04/25/19 13:45 Epoetin Panchito (Epoetin Panchito(ESRD on dialysis)) 3,000 unit THU-THU-THU SUBQ 04/22/19 21:00 05/20/19 20:59 04/22/19 21:14 Folic Acid (Folate) 3 mg DAILY ORAL 04/22/19 09:00 05/19/19 08:59 04/25/19 09:09 Gabapentin (Neurontin) 300 mg Q8HR ORAL 04/21/19 22:00 05/18/19 16:59 04/25/19 05:42 Guaifenesin/ Dextromethorphan (Robitussin DM Syrup) 5 ml Q6H PRN ORAL For Cough 04/21/19 18:03 05/21/19 18:02 Heparin Sodium (Porcine) (Heparin 5000 units/ml) 5,000 units EVERY 12 HOURS SUBQ 04/21/19 21:00 05/18/19 20:59 04/25/19 09:11 Hydralazine HCl (Apresoline) 25 mg Q4H PRN ORAL prn bp over 160 syst 04/21/19 18:04 05/21/19 18:03 04/24/19 16:31 Hydralazine HCl (Apresoline) 75 mg Q8HR ORAL 04/23/19 14:00 05/22/19 13:59 04/25/19 13:45 Insulin Aspart (NovoLOG) BEFORE MEALS AND HS SUBQ 04/21/19 21:00 05/18/19 16:29 04/25/19 13:46 Insulin Detemir (Levemir) 12 units BEDTIME SUBQ 04/22/19 21:00 05/19/19 20:59 04/24/19 20:27 Levothyroxine Sodium (Synthroid) 100 mcg DAILY@0630 ORAL 04/22/19 06:30 05/19/19 06:29 04/25/19 05:42 Metoclopramide HCl (Reglan) 10 mg Q6H PRN IVP Nausea & Vomiting 04/21/19 18:04 05/21/19 18:03 Montelukast Sodium (Singulair) 10 mg QPM ORAL 04/25/19 16:30 05/25/19 16:29 Pantoprazole (Protonix) 40 mg EVERY 12 HOURS ORAL 04/21/19 21:00 05/18/19 20:59 04/25/19 09:09 Sennosides (Senokot) 8.6 mg DAILY ORAL 04/22/19 09:00 05/19/19 08:59 04/25/19 09:09 Tramadol HCl (Ultram) 50 mg Q6H PRN ORAL pain 6 - 10 04/21/19 18:05 04/28/19 18:04 04/23/19 05:39 Kalin Briseno MD Apr 25, 2019 13:58
[2019-04-25] MEDS: Montelukast 10mg tablet ORAL SCH (17:45)
--- NOTE | 2019-04-25 19:05 | NUR ---
NURSE NOTES: Received pt resting in bed. AAO x 4. NC 2L/min. Bipap used at night PRN. HD access intact. IV site intact. No c/o pain. Bed locked, lowest position, alarm on, side rails up x 2, call light within reach. Will continue to monitor.
[2019-04-25 20:00] VITALS: BP 167/64
--- NOTE | 2019-04-25 20:08 | NUR ---
HAND-OFF: Report given to SIDNEY Sesay.
[2019-04-25] MEDS: Epoetin Alfa-EPBX(ESRD on dialysis)3000 units/ml vial SUBQ SCH (20:22)
[2019-04-25] MEDS: Levemir Flexpen SUBQ SCH (20:35)
--- NOTE | 2019-04-25 21:32 | General Progress Note ---
Assessment/Plan Problem List: (1) Pulmonary congestion ICD Codes: R09.89 - Other specified symptoms and signs involving the circulatory and respiratory systems SNOMED: 59789807 (2) Pneumonia ICD Codes: J18.9 - Pneumonia, unspecified organism SNOMED: 044752329 (3) Renal failure ICD Codes: N19 - Unspecified kidney failure SNOMED: 19162610 (4) ESRD (end stage renal disease) ICD Codes: N18.6 - End stage renal disease SNOMED: 82604522 (5) Dyspnea ICD Codes: R06.00 - Dyspnea, unspecified SNOMED: 999831459 (6) Anemia in chronic kidney disease (CKD) ICD Codes: N18.9 - Chronic kidney disease, unspecified; D63.1 - Anemia in chronic kidney disease SNOMED: 022040986 Status: progressing Assessment/Plan: dyspnea on oxygen esrd on hd steriod per pulmonary home oxygen per pulmonary afebrile on oxygen Subjective Respiratory: Reports: shortness of breath Allergies: Coded Allergies: No Known Allergies (Unverified , 05/12/17) Objective Last 24 Hour Vital Signs Date Time Temp Pulse Resp B/P (MAP) Pulse Ox O2 Delivery O2 Flow Rate FiO2 04/25/19 20:22 71 161/64 04/25/19 16:00 2.0 04/25/19 13:45 147/76 04/25/19 12:00 98.9 81 18 147/76 (99) 97 04/25/19 12:00 2.0 04/25/19 09:10 87 159/70 04/25/19 09:09 87 159/70 04/25/19 09:00 Nasal Cannula 2.0 04/25/19 08:10 95 Nasal Cannula 2.0 28 04/25/19 08:00 99.7 87 17 159/70 (99) 96 04/25/19 08:00 2.0 04/25/19 05:42 152/66 04/25/19 04:00 97.8 76 19 152/66 (94) 97 04/25/19 03:26 2.0 04/25/19 03:15 81 18 97 Facial 30 04/25/19 00:00 97.5 90 19 138/60 (86) 100 04/24/19 23:49 84 16 95 Facial 30 04/24/19 22:17 153/73 Intake and Output 04/24/19 04/25/19 19:00 07:00 Intake Total 535 ml Balance 535 ml Intake Oral 480 ml IV Total 55 ml Laboratory Tests 04/25/19 05:30: White Blood Count 3.9L, Red Blood Count 3.24L, Hemoglobin 9.7L, Hematocrit 30.3L , Mean Corpuscular Volume 93, Mean Corpuscular Hemoglobin 30.0, Mean Corpuscular Hemoglobin Concent 32.1, Red Cell Distribution Width 14.3, Platelet Count 232, Mean Platelet Volume 6.4L, Neutrophils (%) (Auto) 69.6, Lymphocytes ( %) (Auto) 14.0L, Monocytes (%) (Auto) 11.6H, Eosinophils (%) (Auto) 3.4H, Basophils (%) (Auto) 1.5, Sodium Level 137, Potassium Level 3.7, Chloride Level 99, Carbon Dioxide Level 29, Anion Gap 10, Blood Urea Nitrogen 41H, Creatinine 4.9H, Estimat Glomerular Filtration Rate 8.8, Glucose Level 127H, Calcium Level 7.9L, Phosphorus Level 4.7, Total Bilirubin 0.4, Aspartate Amino Transf (AST/ SGOT) 16, Alanine Aminotransferase (ALT/SGPT) 9L, Alkaline Phosphatase 95, C- Reactive Protein, Quantitative 1.4H, Pro-B-Type Natriuretic Peptide > 42102B, Total Protein 7.2, Albumin 3.5, Globulin 3.7, Albumin/Globulin Ratio 0.9L Height (Feet): 4 Height (Inches): 11.00 Weight (Pounds): 169 Neck: supple Abdomen: soft Makenna Daniel MD Apr 25, 2019 21:32
[2019-04-26] VITALS (8 sets, daily range): BP systolic 142–170; BP diastolic 59–82
[2019-04-26] MEDS: HydrALAZINE 50mg tab ORAL SCH ×3 (05:21→22:10)
[2019-04-26] MEDS: NovoLOG Insulin Flexpen SUBQ SCH ×4 (05:49→20:38)
--- NOTE | 2019-04-26 06:00 | Hematology/Onc Progress Note ---
Assessment/Plan Assessment/Plan Assessment/Recs 1. Anemia due to underlying chronic disease. Have reviewed prior workup, ferritin is >1000, though percent saturation Tsat <30, but not recommended for further iron --> Continue to closely monitor. --> Transfuse if hgb <7 --> ferritin is >600, therefore hold off oniron --> continue epogen, has been started with hd --> hgb trend 9.6-->9.4-->9.7 --> monitor for gi bleed 2. Leukopenia likely reactive process v infection --> hepatitis and hiv prior NEGATIVE --> neutropenic precautions if ANC <1500 --> trending stable --> imaging reviewed and no hsm / cirrhosis noted prior --> wbc trend 3.1-->3.4-->2.6-->3.9 3. End-stage renal disease, on hemodialysis three times a week. continue mwf --> renal consulted --> hd for 04/21, 04/23 4. Coronary artery disease. --> cards reviewed --> with fluid overload may need diuresis --> with less sob 5. History of anemia due to low B12, low iron. --> b12 is currently within normal limits --> reobtain q6mo 6. Dizziness and unsteady gait. 7. DVt ppsx with heparin sq Greatly appreciate consultation. Subjective Constitutional: Denies: no symptoms, chills, fever, malaise, weakness, other Cardiovascular: Denies: no symptoms, chest pain, edema, irregular heart rate, lightheadedness, palpitations, syncope, other Respiratory: Denies: no symptoms, cough, shortness of breath, SOB with excertion, SOB at rest, sputum, wheezing, other Gastrointestinal/Abdominal: Denies: no symptoms, abdomen distended, abdominal pain, black stools, tarry stools, blood in stool, constipated, diarrhea, difficulty swallowing, nausea, poor appetite, poor fluid intake, rectal bleeding , vomiting, other Genitourinary: Denies: no symptoms, burning, discharge, frequency, flank pain, hematuria, incontinence, pain, urgency, other Neurologic/Psychiatric: Denies: no symptoms, anxiety, depressed, emotional problems, headache, numbness, paresthesia, pre-existing deficit, seizure, tingling, tremors, weakness, other Allergies: Coded Allergies: No Known Allergies (Unverified , 05/12/17) Subjective 04/20: bs was low o/n, 55 dw rn, and given oj, labs reviewed 04/21: getting hd, no events, no bleeding, no f/c 04/22: on 2l nc, no bleeding or chills, using bipap prn basis 04/23: no events, hd for today, has been ordered with [facility]ip hd 04/25: no bleeding, no major events, hd as per renal, labs noted 04/26: on 2l nc, on bipap, no major changes Objective Objective Current Medications Medications (Trade) Dose Ordered Sig/Toya Route PRN Reason Start Time Stop Time Status Last Admin Dose Admin Acetaminophen (Tylenol) 500 mg Q4H PRN ORAL Mild Pain/Temp > 100.5 04/21/19 18:03 05/21/19 18:02 Amlodipine Besylate (Norvasc) 10 mg DAILY ORAL 04/22/19 09:00 05/19/19 08:59 04/25/19 09:10 Aspirin (ASA) 81 mg DAILY ORAL 04/22/19 09:00 05/19/19 13:36 04/25/19 09:10 Atorvastatin Calcium (Lipitor) 10 mg BEDTIME ORAL 04/21/19 21:00 05/18/19 20:59 04/25/19 20:21 Azithromycin (Zithromax) 250 mg DAILY ORAL 04/23/19 09:00 04/30/19 08:59 04/25/19 09:10 Carvedilol (Coreg) 25 mg EVERY 12 HOURS ORAL 04/22/19 11:00 05/22/19 10:59 04/25/19 20:22 Ceftriaxone Sodium 1 gm/ Dextrose 55 ml @ 110 mls/hr Q24H IVPB 04/22/19 11:00 04/29/19 10:59 04/25/19 11:31 Dextrose (Dextrose 50%) 25 ml Q30M PRN IV Hypoglycemia 04/21/19 18:15 05/18/19 15:44 Dextrose (Dextrose 50%) 50 ml Q30M PRN IV Hypoglycemia 04/21/19 18:15 05/18/19 15:44 Docusate Sodium (Colace) 100 mg TID ORAL 04/21/19 18:05 05/21/19 18:04 04/25/19 17:45 Epoetin Panchito (Epoetin Panchito(ESRD on dialysis)) 3,000 unit THU-THU-THU SUBQ 04/22/19 21:00 05/20/19 20:59 04/25/19 20:22 Folic Acid (Folate) 3 mg DAILY ORAL 04/22/19 09:00 05/19/19 08:59 04/25/19 09:09 Gabapentin (Neurontin) 300 mg Q8HR ORAL 04/21/19 22:00 05/18/19 16:59 04/26/19 05:20 Guaifenesin/ Dextromethorphan (Robitussin DM Syrup) 5 ml Q6H PRN ORAL For Cough 04/21/19 18:03 05/21/19 18:02 Heparin Sodium (Porcine) (Heparin 5000 units/ml) 5,000 units EVERY 12 HOURS SUBQ 04/21/19 21:00 05/18/19 20:59 04/25/19 20:23 Hydralazine HCl (Apresoline) 25 mg Q4H PRN ORAL prn bp over 160 syst 04/21/19 18:04 05/21/19 18:03 04/24/19 16:31 Hydralazine HCl (Apresoline) 75 mg Q8HR ORAL 04/23/19 14:00 05/22/19 13:59 04/26/19 05:21 Insulin Aspart (NovoLOG) BEFORE MEALS AND HS SUBQ 04/21/19 21:00 05/18/19 16:29 04/25/19 20:35 Insulin Detemir (Levemir) 12 units BEDTIME SUBQ 04/22/19 21:00 05/19/19 20:59 04/25/19 20:35 Levothyroxine Sodium (Synthroid) 100 mcg DAILY@0630 ORAL 04/22/19 06:30 05/19/19 06:29 04/26/19 05:56 Metoclopramide HCl (Reglan) 10 mg Q6H PRN IVP Nausea & Vomiting 04/21/19 18:04 05/21/19 18:03 Montelukast Sodium (Singulair) 10 mg QPM ORAL 04/25/19 16:30 05/25/19 16:29 04/25/19 17:45 Pantoprazole (Protonix) 40 mg EVERY 12 HOURS ORAL 04/21/19 21:00 05/18/19 20:59 04/25/19 20:21 Sennosides (Senokot) 8.6 mg DAILY ORAL 04/22/19 09:00 05/19/19 08:59 04/25/19 09:09 Tramadol HCl (Ultram) 50 mg Q6H PRN ORAL pain 6 - 10 04/21/19 18:05 04/28/19 18:04 04/23/19 05:39 Last 24 Hour Vital Signs Date Time Temp Pulse Resp B/P (MAP) Pulse Ox O2 Delivery O2 Flow Rate FiO2 04/26/19 05:23 93 160/82 (108) 04/26/19 05:21 160/82 04/26/19 04:00 98.8 67 18 142/59 (86) 100 04/26/19 04:00 2.0 04/26/19 01:06 86 18 99 Facial 30 04/26/19 00:00 98.1 68 16 149/60 (89) 98 04/25/19 22:53 30 04/25/19 22:49 148/63 04/25/19 22:48 79 19 99 Facial 30 04/25/19 21:00 Nasal Cannula 2.0 04/25/19 20:22 71 161/64 04/25/19 20:00 98.3 71 18 167/64 (98) 96 04/25/19 20:00 2.0 04/25/19 18:50 91 Nasal Cannula 2.0 28 04/25/19 16:00 2.0 04/25/19 13:45 147/76 04/25/19 12:00 98.9 81 18 147/76 (99) 97 04/25/19 12:00 2.0 04/25/19 09:10 87 159/70 04/25/19 09:09 87 159/70 04/25/19 09:00 Nasal Cannula 2.0 04/25/19 08:10 95 Nasal Cannula 2.0 28 04/25/19 08:00 99.7 87 17 159/70 (99) 96 04/25/19 08:00 2.0 04/25/19 05:42 152/66 04/25/19 04:00 97.8 76 19 152/66 (94) 97 04/25/19 03:26 2.0 04/25/19 03:15 81 18 97 Facial 30 04/25/19 00:00 97.5 90 19 138/60 (86) 100 04/24/19 23:49 84 16 95 Facial 30 04/24/19 22:17 153/73 04/24/19 21:13 98 Nasal Cannula 2.0 28 04/24/19 21:00 Nasal Cannula 2.0 04/24/19 20:24 76 155/68 04/24/19 20:00 99.0 76 19 155/68 (97) 95 04/24/19 20:00 2.0 04/24/19 16:31 165/76 04/24/19 16:00 97.9 78 19 165/76 (105) 99 78 04/24/19 16:00 2.0 04/24/19 14:13 146/67 04/24/19 12:00 2.0 04/24/19 11:40 69 146/67 04/24/19 11:38 69 146/67 04/24/19 09:59 97 Nasal Cannula 2.0 28 04/24/19 09:00 Nasal Cannula 2.0 04/24/19 08:00 98.4 69 18 146/67 (93) 94 69 04/24/19 08:00 2.0 Intake and Output 04/25/19 04/26/19 19:00 07:00 Intake Total 55 ml Balance 55 ml IV Total 55 ml Labs Test 04/25/19 05:30 White Blood Count 3.9 K/UL (4.8-10.8) Red Blood Count 3.24 M/UL (4.20-5.40) Hemoglobin 9.7 G/DL (12.0-16.0) Hematocrit 30.3 % (37.0-47.0) Mean Corpuscular Volume 93 FL (80-99) Mean Corpuscular Hemoglobin 30.0 PG (27.0-31.0) Mean Corpuscular Hemoglobin Concent 32.1 G/DL (32.0-36.0) Red Cell Distribution Width 14.3 % (11.6-14.8) Platelet Count 232 K/UL (150-450) Mean Platelet Volume 6.4 FL (6.5-10.1) Neutrophils (%) (Auto) 69.6 % (45.0-75.0) Lymphocytes (%) (Auto) 14.0 % (20.0-45.0) Monocytes (%) (Auto) 11.6 % (1.0-10.0) Eosinophils (%) (Auto) 3.4 % (0.0-3.0) Basophils (%) (Auto) 1.5 % (0.0-2.0) Sodium Level 137 MMOL/L (136-145) Potassium Level 3.7 MMOL/L (3.5-5.1) Chloride Level 99 MMOL/L (98-107) Carbon Dioxide Level 29 MMOL/L (21-32) Anion Gap 10 mmol/L (5-15) Blood Urea Nitrogen 41 mg/dL (7-18) Creatinine 4.9 MG/DL (0.55-1.30) Estimat Glomerular Filtration Rate 8.8 mL/min (>60) Glucose Level 127 MG/DL (74-106) Calcium Level 7.9 MG/DL (8.5-10.1) Phosphorus Level 4.7 MG/DL (2.5-4.9) Total Bilirubin 0.4 MG/DL (0.2-1.0) Aspartate Amino Transf (AST/SGOT) 16 U/L (15-37) Alanine Aminotransferase (ALT/SGPT) 9 U/L (12-78) Alkaline Phosphatase 95 U/L (46-116) C-Reactive Protein, Quantitative 1.4 mg/dL (0.00-0.90) Pro-B-Type Natriuretic Peptide > 61305 pg/mL (0-125) Total Protein 7.2 G/DL (6.4-8.2) Albumin 3.5 G/DL (3.4-5.0) Globulin 3.7 g/dL Albumin/Globulin Ratio 0.9 (1.0-2.7) Height (Feet): 4 Height (Inches): 11.00 Weight (Pounds): 169 Objective VITAL SIGNS: Reviewed. GENERAL: No distress. PULMONARY: Decreased breath sounds. ++ BIPAP CARDIOVASCULAR: Regular rate. No S3 or S4. ABDOMEN: Soft, nontender, and nondistended. EXTREMITIES: 1+ edema noted . ++ Left AVS Carl Daniels MD Apr 26, 2019 06:00
--- NOTE | 2019-04-26 06:17 | NUR ---
NURSE NOTES: Called [facility] for HD schedule on 04/26/19. Waiting call back
--- NOTE | 2019-04-26 07:28 | NUR ---
HAND-OFF: Report given to SIDNEY Valadez.
--- NOTE | 2019-04-26 07:43 | NUR ---
NURSE NOTES: Patient alert x4, on nasal cannula 2Liter, no sing of distress and shortness of breath; no sign of chest pain; IV RFA 22G flushes well; Hemodialysis port on Left-Upper shunt, patient schedules for dialysis today and PM nurseAstrid called to [facility], waiting for confirmation from dialysis nurse; Bipap machine at the bed side and patient use it for night time; side rails up x2, breaks engaged, bed at lowest position; call light within reach; will check blood sugar as scheduled; will keep monitoring.
--- NOTE | 2019-04-26 08:26 | Pulmonology Progress Note ---
Assessment/Plan Assessment/Plan Impression: Respiratory distress- stable Pulmonary congestion ESRD (end stage renal disease) on HD Hypertension Diabetes CAD Plan: HD per Renal NC O2 PRN- check RA ABG for oxygen needs HHN PRN Monitor labs and adjust therapy keep negative off steroids dc planning close follow up for change in respiratory status impression, plan, and exam edited and reviewed in detail care discussed with RN Subjective Allergies: Coded Allergies: No Known Allergies (Unverified , 05/12/17) Subjective care noted comfortable tolerating HD Objective Last 24 Hour Vital Signs Date Time Temp Pulse Resp B/P (MAP) Pulse Ox O2 Delivery O2 Flow Rate FiO2 04/26/19 07:02 96 Nasal Cannula 2.0 28 04/26/19 05:23 93 160/82 (108) 04/26/19 05:21 160/82 04/26/19 04:00 98.8 67 18 142/59 (86) 100 04/26/19 04:00 2.0 04/26/19 01:06 86 18 99 Facial 30 04/26/19 00:00 98.1 68 16 149/60 (89) 98 04/25/19 22:53 30 04/25/19 22:49 148/63 04/25/19 22:48 79 19 99 Facial 30 04/25/19 21:00 Nasal Cannula 2.0 04/25/19 20:22 71 161/64 04/25/19 20:00 98.3 71 18 167/64 (98) 96 04/25/19 20:00 2.0 04/25/19 18:50 91 Nasal Cannula 2.0 28 04/25/19 16:00 2.0 04/25/19 13:45 147/76 04/25/19 12:00 98.9 81 18 147/76 (99) 97 04/25/19 12:00 2.0 04/25/19 09:10 87 159/70 04/25/19 09:09 87 159/70 04/25/19 09:00 Nasal Cannula 2.0 Intake and Output 04/25/19 04/26/19 19:00 07:00 Intake Total 55 ml Balance 55 ml IV Total 55 ml Objective WDWN NAD clear breath sounds bilaterally without rhonchi or wheeze [id number] without MRG NABS nontender no HSM no CCE nonfocal Current Medications Medications (Trade) Dose Ordered Sig/Toya Route PRN Reason Start Time Stop Time Status Last Admin Dose Admin Acetaminophen (Tylenol) 500 mg Q4H PRN ORAL Mild Pain/Temp > 100.5 04/21/19 18:03 05/21/19 18:02 Amlodipine Besylate (Norvasc) 10 mg DAILY ORAL 04/22/19 09:00 05/19/19 08:59 04/25/19 09:10 Aspirin (ASA) 81 mg DAILY ORAL 04/22/19 09:00 05/19/19 13:36 04/25/19 09:10 Atorvastatin Calcium (Lipitor) 10 mg BEDTIME ORAL 04/21/19 21:00 05/18/19 20:59 04/25/19 20:21 Azithromycin (Zithromax) 250 mg DAILY ORAL 04/23/19 09:00 04/30/19 08:59 04/25/19 09:10 Carvedilol (Coreg) 25 mg EVERY 12 HOURS ORAL 04/22/19 11:00 05/22/19 10:59 04/25/19 20:22 Ceftriaxone Sodium 1 gm/ Dextrose 55 ml @ 110 mls/hr Q24H IVPB 04/22/19 11:00 04/29/19 10:59 04/25/19 11:31 Dextrose (Dextrose 50%) 25 ml Q30M PRN IV Hypoglycemia 04/21/19 18:15 05/18/19 15:44 Dextrose (Dextrose 50%) 50 ml Q30M PRN IV Hypoglycemia 04/21/19 18:15 05/18/19 15:44 Docusate Sodium (Colace) 100 mg TID ORAL 04/21/19 18:05 05/21/19 18:04 04/25/19 17:45 Epoetin Panchito (Epoetin Panchito(ESRD on dialysis)) 3,000 unit THU-THU-THU SUBQ 04/22/19 21:00 05/20/19 20:59 04/25/19 20:22 Folic Acid (Folate) 3 mg DAILY ORAL 04/22/19 09:00 05/19/19 08:59 04/25/19 09:09 Gabapentin (Neurontin) 300 mg Q8HR ORAL 04/21/19 22:00 05/18/19 16:59 04/26/19 05:20 Guaifenesin/ Dextromethorphan (Robitussin DM Syrup) 5 ml Q6H PRN ORAL For Cough 04/21/19 18:03 05/21/19 18:02 Heparin Sodium (Porcine) (Heparin 5000 units/ml) 5,000 units EVERY 12 HOURS SUBQ 04/21/19 21:00 05/18/19 20:59 04/25/19 20:23 Hydralazine HCl (Apresoline) 25 mg Q4H PRN ORAL prn bp over 160 syst 04/21/19 18:04 05/21/19 18:03 04/24/19 16:31 Hydralazine HCl (Apresoline) 75 mg Q8HR ORAL 04/23/19 14:00 05/22/19 13:59 04/26/19 05:21 Insulin Aspart (NovoLOG) BEFORE MEALS AND HS SUBQ 04/21/19 21:00 05/18/19 16:29 04/25/19 20:35 Insulin Detemir (Levemir) 12 units BEDTIME SUBQ 04/22/19 21:00 05/19/19 20:59 04/25/19 20:35 Levothyroxine Sodium (Synthroid) 100 mcg DAILY@0630 ORAL 04/22/19 06:30 05/19/19 06:29 04/26/19 05:56 Metoclopramide HCl (Reglan) 10 mg Q6H PRN IVP Nausea & Vomiting 04/21/19 18:04 05/21/19 18:03 Montelukast Sodium (Singulair) 10 mg QPM ORAL 04/25/19 16:30 05/25/19 16:29 04/25/19 17:45 Pantoprazole (Protonix) 40 mg EVERY 12 HOURS ORAL 04/21/19 21:00 05/18/19 20:59 04/25/19 20:21 Sennosides (Senokot) 8.6 mg DAILY ORAL 04/22/19 09:00 05/19/19 08:59 04/25/19 09:09 Tramadol HCl (Ultram) 50 mg Q6H PRN ORAL pain 6 - 10 04/21/19 18:05 04/28/19 18:04 04/23/19 05:39 Bryn Ibarra MD Apr 26, 2019 08:26
[2019-04-26] MEDS: Sennosides 8.6mg tab ORAL SCH (09:09)
[2019-04-26] MEDS: Aspirin Baby 81mg ORAL SCH (09:09)
[2019-04-26] MEDS: Docusate 100mg cap ORAL SCH ×3 (09:09→17:08)
[2019-04-26] MEDS: Azithromycin 250mg tab ORAL SCH (09:09)
[2019-04-26] MEDS: Carvedilol 25mg Tab ORAL SCH ×2 (09:09→20:35)
[2019-04-26] MEDS: Heparin 5000 units/ml inj SUBQ SCH ×2 (09:11→20:36)
--- NOTE | 2019-04-26 10:16 | NUR ---
NURSE NOTES: SPOKE Rita [facility] OF [facility] RE HD ORDER TODAY, WAITING FOR [employer]APHIC DESIGN SPECIALIST HD NURSE
--- NOTE | 2019-04-26 10:20 | NUR ---
NURSE NOTES: I spoke with Tevin at [facility] to dialysis patient sooner than later today, per MD Dileep mon.
--- NOTE | 2019-04-26 11:00 | NUR ---
NURSE NOTES: Patient is getting Hemodialysis.
--- NOTE | 2019-04-26 11:37 | Infectious Diseases Prog Note ---
Assessment/Plan Assessment/Plan IMPRESSION: 1. Dyspnea, likely secondary to congestive hear failure. 2. Hypoxemic respiratory failure. 3. End-stage renal disease, on hemodialysis. 4. Diabetes mellitus. 5. Diastolic CHF. 6. Aortic stenosis. 7. Hypertension. 8. Anemia. 9. Leukopenia. RECOMMENDATIONS: 1. Discontinue Rocephin and Zithromax 2. Observe off antibiotic Subjective ROS Limited/Unobtainable: Yes Constitutional: Reports: no symptoms Respiratory: Reports: no symptoms Allergies: Coded Allergies: No Known Allergies (Unverified , 05/12/17) Objective Vital Signs Last 24 Hour Vital Signs Date Time Temp Pulse Resp B/P (MAP) Pulse Ox O2 Delivery O2 Flow Rate FiO2 04/26/19 09:09 70 160/73 04/26/19 09:09 70 160/73 04/26/19 09:00 Nasal Cannula 2.0 04/26/19 08:00 2.0 04/26/19 08:00 98.7 70 18 160/73 (102) 98 04/26/19 07:02 96 Nasal Cannula 2.0 28 04/26/19 05:23 93 160/82 (108) 04/26/19 05:21 160/82 04/26/19 04:00 98.8 67 18 142/59 (86) 100 04/26/19 04:00 2.0 04/26/19 01:06 86 18 99 Facial 30 04/26/19 00:00 98.1 68 16 149/60 (89) 98 04/25/19 22:53 30 04/25/19 22:49 148/63 04/25/19 22:48 79 19 99 Facial 30 04/25/19 21:00 Nasal Cannula 2.0 04/25/19 20:22 71 161/64 04/25/19 20:00 98.3 71 18 167/64 (98) 96 04/25/19 20:00 2.0 04/25/19 18:50 91 Nasal Cannula 2.0 28 04/25/19 16:00 2.0 04/25/19 13:45 147/76 04/25/19 12:00 98.9 81 18 147/76 (99) 97 04/25/19 12:00 2.0 Height (Feet): 4 Height (Inches): 11.00 Weight (Pounds): 169 General Appearance: no acute distress HEENT: mucous membranes moist Respiratory/Chest: lungs clear Cardiovascular: normal rate Abdomen: soft, non tender Extremities: no edema Neurologic/Psychiatric: alert, responsive Laboratory Tests Test 04/26/19 08:30 Arterial Blood pH 7.313 (7.350-7.450) Arterial Blood Partial Pressure CO2 50.3 mmHg (35.0-45.0) H Arterial Blood Partial Pressure O2 94.3 mmHg (75.0-100.0) Arterial Blood HCO3 24.9 mmol/L (22.0-26.0) Arterial Blood Oxygen Saturation 96.3 % (95-100) Arterial Blood Base Excess -1.6 (-2-2) Faheem Test Positive Current Medications Medications (Trade) Dose Ordered Sig/Toya Route PRN Reason Start Time Stop Time Status Last Admin Dose Admin Acetaminophen (Tylenol) 500 mg Q4H PRN ORAL Mild Pain/Temp > 100.5 04/21/19 18:03 05/21/19 18:02 Amlodipine Besylate (Norvasc) 10 mg DAILY ORAL 04/22/19 09:00 05/19/19 08:59 04/26/19 09:09 Aspirin (ASA) 81 mg DAILY ORAL 04/22/19 09:00 05/19/19 13:36 04/26/19 09:09 Atorvastatin Calcium (Lipitor) 10 mg BEDTIME ORAL 04/21/19 21:00 05/18/19 20:59 04/25/19 20:21 Azithromycin (Zithromax) 250 mg DAILY ORAL 04/23/19 09:00 04/30/19 08:59 04/26/19 09:09 Carvedilol (Coreg) 25 mg EVERY 12 HOURS ORAL 04/22/19 11:00 05/22/19 10:59 04/26/19 09:09 Ceftriaxone Sodium 1 gm/ Dextrose 55 ml @ 110 mls/hr Q24H IVPB 04/22/19 11:00 04/29/19 10:59 04/25/19 11:31 Dextrose (Dextrose 50%) 25 ml Q30M PRN IV Hypoglycemia 04/21/19 18:15 05/18/19 15:44 Dextrose (Dextrose 50%) 50 ml Q30M PRN IV Hypoglycemia 04/21/19 18:15 05/18/19 15:44 Docusate Sodium (Colace) 100 mg TID ORAL 04/21/19 18:05 05/21/19 18:04 04/26/19 09:09 Epoetin Panchito (Epoetin Panchito(ESRD on dialysis)) 3,000 unit THU-THU-THU SUBQ 04/22/19 21:00 05/20/19 20:59 04/25/19 20:22 Folic Acid (Folate) 3 mg DAILY ORAL 04/22/19 09:00 05/19/19 08:59 04/26/19 09:09 Gabapentin (Neurontin) 300 mg Q8HR ORAL 04/21/19 22:00 05/18/19 16:59 04/26/19 05:20 Guaifenesin/ Dextromethorphan (Robitussin DM Syrup) 5 ml Q6H PRN ORAL For Cough 04/21/19 18:03 05/21/19 18:02 Heparin Sodium (Porcine) (Heparin 5000 units/ml) 5,000 units EVERY 12 HOURS SUBQ 04/21/19 21:00 05/18/19 20:59 04/26/19 09:11 Hydralazine HCl (Apresoline) 25 mg Q4H PRN ORAL prn bp over 160 syst 04/21/19 18:04 05/21/19 18:03 04/24/19 16:31 Hydralazine HCl (Apresoline) 75 mg Q8HR ORAL 04/23/19 14:00 05/22/19 13:59 04/26/19 05:21 Insulin Aspart (NovoLOG) BEFORE MEALS AND HS SUBQ 04/21/19 21:00 05/18/19 16:29 04/25/19 20:35 Insulin Detemir (Levemir) 12 units BEDTIME SUBQ 04/22/19 21:00 05/19/19 20:59 04/25/19 20:35 Levothyroxine Sodium (Synthroid) 100 mcg DAILY@0630 ORAL 04/22/19 06:30 05/19/19 06:29 04/26/19 05:56 Metoclopramide HCl (Reglan) 10 mg Q6H PRN IVP Nausea & Vomiting 04/21/19 18:04 05/21/19 18:03 Montelukast Sodium (Singulair) 10 mg QPM ORAL 04/25/19 16:30 05/25/19 16:29 04/25/19 17:45 Pantoprazole (Protonix) 40 mg EVERY 12 HOURS ORAL 04/21/19 21:00 05/18/19 20:59 04/26/19 09:09 Sennosides (Senokot) 8.6 mg DAILY ORAL 04/22/19 09:00 05/19/19 08:59 04/26/19 09:09 Tramadol HCl (Ultram) 50 mg Q6H PRN ORAL pain 6 - 10 04/21/19 18:05 04/28/19 18:04 04/23/19 05:39 Kalin Briseno MD Apr 26, 2019 11:37
--- NOTE | 2019-04-26 13:17 | NUR ---
CASE MANAGEMENT:REVIEW 04/26/19 SI: RESPIRATORY FAILURE CHF. DM. ESRD ON HD 98.6 72 19 155/72 97% ON 2L/NC IS: SINGULAR PO QPM HYDRALAZINE PO Q8HRS LEVEMIR SQ QHS COREG PO Q12 NORVASC PO QD ASA PO QD : MED/SURG STATUS 4 EAST DCP: PLAN IS TO RETURN HOME AND CONTINUE WITH OUTPT DIALYSIS PLAN: DISCHARGE ONCE CLEARED BY PRECISION ASSEMBLER BENCH
--- NOTE | 2019-04-26 13:45 | Nephrology Progress Note ---
Assessment/Plan Problem List: (1) ESRD (end stage renal disease) (2) Respiratory distress (3) Anemia in chronic kidney disease (CKD) (4) Diabetic nephropathy with proteinuria (5) Hypertensive kidney disease Assessment ESRD Pulm EDema DM HTN Anemia Low B12 and Iron by history CAD . Plan CXR BP meds- adjusted stop lisinopril due to cough- start Rocephin one dose solumedrol- HD in am 04/26 2D Echo Ej Fx 50 % Pulm support per orders ? DC in am Subjective ROS Limited/Unobtainable: No Constitutional: Reports: malaise Objective Objective Last 24 Hour Vital Signs Date Time Temp Pulse Resp B/P (MAP) Pulse Ox O2 Delivery O2 Flow Rate FiO2 04/26/19 12:00 98.6 72 19 155/72 (99) 97 04/26/19 12:00 2.0 04/26/19 09:09 70 160/73 04/26/19 09:09 70 160/73 04/26/19 09:00 Nasal Cannula 2.0 04/26/19 08:00 2.0 04/26/19 08:00 98.7 70 18 160/73 (102) 98 04/26/19 07:02 96 Nasal Cannula 2.0 28 04/26/19 05:23 93 160/82 (108) 04/26/19 05:21 160/82 04/26/19 04:00 98.8 67 18 142/59 (86) 100 04/26/19 04:00 2.0 04/26/19 01:06 86 18 99 Facial 30 04/26/19 00:00 98.1 68 16 149/60 (89) 98 04/25/19 22:53 30 04/25/19 22:49 148/63 04/25/19 22:48 79 19 99 Facial 30 04/25/19 21:00 Nasal Cannula 2.0 04/25/19 20:22 71 161/64 04/25/19 20:00 98.3 71 18 167/64 (98) 96 04/25/19 20:00 2.0 04/25/19 18:50 91 Nasal Cannula 2.0 28 04/25/19 16:00 2.0 04/25/19 13:45 147/76 Intake and Output 04/25/19 04/26/19 18:59 06:59 Intake Total 55 ml Balance 55 ml IV Total 55 ml Laboratory Tests 04/26/19 08:30: Arterial Blood pH 7.313L, Arterial Blood Partial Pressure CO2 50.3H, Arterial Blood Partial Pressure O2 94.3, Arterial Blood HCO3 24.9, Arterial Blood Oxygen Saturation 96.3, Arterial Blood Base Excess -1.6, Faheem Test Positive Height (Feet): 4 Height (Inches): 11.00 Weight (Pounds): 169 General Appearance: no apparent distress Cardiovascular: normal peripheral pulses Respiratory/Chest: decreased breath sounds Abdomen: soft Objective no change Francis Falk MD Apr 26, 2019 13:45
--- NOTE | 2019-04-26 15:00 | NUR ---
NURSE NOTES: According to Carl, dialysis nurse, removed 3 Liter on dialysis today.
--- NOTE | 2019-04-26 15:11 | NUR ---
DISCHARGE PLANNING PATIENT HAS BEEN REFERRED TO [facility] (FOR HOME OXYGEN) T: [phone] F: [phone] WILL BE REFERRED TO [facility] T:[phone] F: [phone]
[2019-04-26] MEDS: Montelukast 10mg tablet ORAL SCH (17:08)
--- NOTE | 2019-04-26 19:01 | NUR ---
HAND-OFF: Report given to SIDNEY Sesay.
--- NOTE | 2019-04-26 19:06 | NUR ---
NURSE NOTES: Received pt resting in bed. AAO x 4. NC 2L/min. Bipap used at night PRN. HD access intact. IV infiltrate noted and will insert new IV. No c/o pain. Bed locked, lowest position, alarm on, side rails up x 2, call light within reach. Will continue to monitor.
[2019-04-26] MEDS: Levemir Flexpen SUBQ SCH (20:37)
--- NOTE | 2019-04-26 21:02 | General Progress Note ---
Assessment/Plan Problem List: (1) Pulmonary congestion ICD Codes: R09.89 - Other specified symptoms and signs involving the circulatory and respiratory systems SNOMED: 17895617 (2) Pneumonia ICD Codes: J18.9 - Pneumonia, unspecified organism SNOMED: 381701843 (3) Renal failure ICD Codes: N19 - Unspecified kidney failure SNOMED: 98841143 (4) ESRD (end stage renal disease) ICD Codes: N18.6 - End stage renal disease SNOMED: 41736780 (5) Dyspnea ICD Codes: R06.00 - Dyspnea, unspecified SNOMED: 138656966 (6) Anemia in chronic kidney disease (CKD) ICD Codes: N18.9 - Chronic kidney disease, unspecified; D63.1 - Anemia in chronic kidney disease SNOMED: 488322240 Status: progressing Assessment/Plan: occasional wheezing abx per id afebrile esrd on hd steriod per pulmonary home oxygen per pulmonary on oxygen Subjective ROS Limited/Unobtainable: Yes Allergies: Coded Allergies: No Known Allergies (Unverified , 05/12/17) Objective Last 24 Hour Vital Signs Date Time Temp Pulse Resp B/P (MAP) Pulse Ox O2 Delivery O2 Flow Rate FiO2 04/26/19 20:35 79 170/68 04/26/19 16:00 2.0 04/26/19 16:00 98.1 74 19 146/70 (95) 97 04/26/19 13:59 155/72 04/26/19 12:00 98.6 72 19 155/72 (99) 97 04/26/19 12:00 2.0 04/26/19 09:09 70 160/73 04/26/19 09:09 70 160/73 04/26/19 09:00 Nasal Cannula 2.0 04/26/19 08:00 2.0 04/26/19 08:00 98.7 70 18 160/73 (102) 98 04/26/19 07:02 96 Nasal Cannula 2.0 28 04/26/19 05:23 93 160/82 (108) 04/26/19 05:21 160/82 04/26/19 04:00 98.8 67 18 142/59 (86) 100 04/26/19 04:00 2.0 04/26/19 01:06 86 18 99 Facial 30 04/26/19 00:00 98.1 68 16 149/60 (89) 98 04/25/19 22:53 30 04/25/19 22:49 148/63 04/25/19 22:48 79 19 99 Facial 30 Intake and Output 04/25/19 04/26/19 18:59 06:59 Intake Total 55 ml Balance 55 ml IV Total 55 ml Laboratory Tests 04/26/19 08:30: Arterial Blood pH 7.313L, Arterial Blood Partial Pressure CO2 50.3H, Arterial Blood Partial Pressure O2 94.3, Arterial Blood HCO3 24.9, Arterial Blood Oxygen Saturation 96.3, Arterial Blood Base Excess -1.6, Faheem Test Positive Height (Feet): 4 Height (Inches): 11.00 Weight (Pounds): 161 Cardiovascular: normal rate Respiratory/Chest: lungs clear Abdomen: soft Makenna Daniel MD Apr 26, 2019 21:02
--- NOTE | 2019-04-26 21:38 | Diagnostic Imaging Report ---
APPROVED REPORT CPT Code: 23112 Present Symptoms Shortness of breath BILATERAL: Imaging reveals a patent deep venous system bilaterally. There is no evidence of thrombus within the common femoral, superficial femoral, popliteal or tibial segments. The greater saphenous veins are within normal limits. Doppler indicates normal spontaneous flow within these segments.
[2019-04-27] VITALS: BP 143/61
[2019-04-27 04:00] VITALS: BP 152/67
[2019-04-27] MEDS: HydrALAZINE 50mg tab ORAL SCH ×3 (05:04→21:13)
[2019-04-27] MEDS: NovoLOG Insulin Flexpen SUBQ SCH ×4 (05:48→21:16)
--- NOTE | 2019-04-27 06:42 | NUR ---
NURSE NOTES: Notified Dr. Ibarra regarding ABG result and received order DC sedation. RN discontinued tramadol 50mg.
[2019-04-27 06:49] LABS: BASOPHILS % (AUTO) 1.6 % (0.0-2.0); EOSINOPHILS % (AUTO) 1.7 % (0.0-3.0); HEMATOCRIT 30.5 % (37.0-47.0); HEMOGLOBIN 9.8 G/DL (12.0-16.0); LYMPHOCYTES % (AUTO) 17.7 % (20.0-45.0); MEAN CORPUSCULAR VOLUME 94 FL (80-99); MONOCYTES % (AUTO) 11.1 % (1.0-10.0); PLATELET COUNT 227 K/UL (150-450); RED BLOOD COUNT 3.26 M/UL (4.20-5.40); RED CELL DISTRIBUTION WIDTH 14.1 % (11.6-14.8); WHITE BLOOD COUNT 3.5 K/UL (4.8-10.8)
--- NOTE | 2019-04-27 07:17 | NUR ---
HAND-OFF: Report given to SIDNEY Valadez.
[2019-04-27 07:26] LABS: ALANINE AMINOTRANSFERASE 7 U/L (12-78); ALBUMIN 3.5 G/DL (3.4-5.0); ALKALINE PHOSPHATASE 86 U/L (46-116); ANION GAP 8 mmol/L (5-15); ASPARTATE AMINO TRANSFERASE 11 U/L (15-37); BILIRUBIN,TOTAL 0.5 MG/DL (0.2-1.0); BLOOD UREA NITROGEN 33 mg/dL (7-18); CALCIUM 8.1 MG/DL (8.5-10.1); CARBON DIOXIDE 30 MMOL/L (21-32); CHLORIDE 101 MMOL/L (98-107); PHOSPHORUS 4.6 MG/DL (2.5-4.9); POTASSIUM 3.8 MMOL/L (3.5-5.1); SODIUM 139 MMOL/L (136-145)
--- NOTE | 2019-04-27 07:41 | NUR ---
NURSE NOTES: Patient awake, alert x4; nasal cannula 2 Liter, no sing of distress and shortness of breath; Bipap machine at the bed side for night time use; IV Right-Hand 24G flushes well; Hemodialysis port on Left-Upper shunt, patine dialyzed 04/26/19; patient had bruises on left upper arm and abdomen; side rails up x2, breaks engaged, bed at lowest position; call light within reach; will check blood sugar as scheduled; will keep monitoring.
[2019-04-27 08:00] VITALS: BP 152/62
[2019-04-27] MEDS: Carvedilol 25mg Tab ORAL SCH ×2 (08:58→21:14)
[2019-04-27] MEDS: Aspirin Baby 81mg ORAL SCH (08:58)
[2019-04-27] MEDS: Sennosides 8.6mg tab ORAL SCH (08:58)
[2019-04-27] MEDS: Docusate 100mg cap ORAL SCH ×3 (08:58→17:14)
[2019-04-27] MEDS: Heparin 5000 units/ml inj SUBQ SCH ×2 (08:59→21:00)
--- NOTE | 2019-04-27 09:20 | Hematology/Onc Progress Note ---
Assessment/Plan Assessment/Plan Assessment/Recs 1. Anemia due to underlying chronic disease. Have reviewed prior workup, ferritin is >1000, though percent saturation Tsat <30, but not recommended for further iron --> Continue to closely monitor. --> Transfuse if hgb <7 --> ferritin is >600, therefore hold off oniron --> continue epogen, has been started with hd --> hgb trend 9.6-->9.4-->9.7-->9.8 --> monitor for gi bleed 2. Leukopenia likely reactive process v infection --> hepatitis and hiv prior NEGATIVE --> neutropenic precautions if ANC <1500 --> trending stable --> imaging reviewed and no hsm / cirrhosis noted prior --> wbc trend 3.1-->3.4-->2.6-->3.9-->3.5 3. End-stage renal disease, on hemodialysis three times a week. continue mwf --> renal consulted --> hd for 04/21, 04/23, 04/26 4. Coronary artery disease. --> cards reviewed --> with fluid overload may need diuresis --> with less sob 5. History of anemia due to low B12, low iron. --> b12 is currently within normal limits --> reobtain q6mo 6. Dizziness and unsteady gait. 7. DVt ppx with heparin sq Greatly appreciate consultation. Subjective Allergies: Coded Allergies: No Known Allergies (Unverified , 05/12/17) Subjective 04/20: bs was low o/n, 54 dw rn, and given oj, labs reviewed 04/21: getting hd, no events, no bleeding, no f/c 04/22: on 2l nc, no bleeding or chills, using bipap prn basis 04/23: no events, hd for today, has been ordered with vip hd 04/25: no bleeding, no major events, hd as per renal, labs noted 04/26: on 2l nc, on bipap, no major changes 04/27: no acute events, hd last night, nc 2l,, h/h stable Objective Objective Current Medications Medications (Trade) Dose Ordered Sig/Toya Route PRN Reason Start Time Stop Time Status Last Admin Dose Admin Acetaminophen (Tylenol) 500 mg Q4H PRN ORAL Mild Pain/Temp > 100.5 04/21/19 18:03 05/21/19 18:02 Amlodipine Besylate (Norvasc) 10 mg DAILY ORAL 04/22/19 09:00 05/19/19 08:59 04/27/19 08:58 Aspirin (ASA) 81 mg DAILY ORAL 04/22/19 09:00 05/19/19 13:36 04/27/19 08:58 Atorvastatin Calcium (Lipitor) 10 mg BEDTIME ORAL 04/21/19 21:00 05/18/19 20:59 04/26/19 20:35 Carvedilol (Coreg) 25 mg EVERY 12 HOURS ORAL 04/22/19 11:00 05/22/19 10:59 04/27/19 08:58 Dextrose (Dextrose 50%) 25 ml Q30M PRN IV Hypoglycemia 04/21/19 18:15 05/18/19 15:44 Dextrose (Dextrose 50%) 50 ml Q30M PRN IV Hypoglycemia 04/21/19 18:15 05/18/19 15:44 Docusate Sodium (Colace) 100 mg TID ORAL 04/21/19 18:05 05/21/19 18:04 04/27/19 08:58 Epoetin Panchito (Epoetin Panchito(ESRD on dialysis)) 3,000 unit THU-THU-THU SUBQ 04/22/19 21:00 05/20/19 20:59 04/25/19 20:22 Folic Acid (Folate) 3 mg DAILY ORAL 04/22/19 09:00 05/19/19 08:59 04/27/19 08:58 Gabapentin (Neurontin) 300 mg Q8HR ORAL 04/21/19 22:00 05/18/19 16:59 04/27/19 05:05 Guaifenesin/ Dextromethorphan (Robitussin DM Syrup) 5 ml Q6H PRN ORAL For Cough 04/21/19 18:03 05/21/19 18:02 Heparin Sodium (Porcine) (Heparin 5000 units/ml) 5,000 units EVERY 12 HOURS SUBQ 04/21/19 21:00 05/18/19 20:59 04/26/19 20:36 Hydralazine HCl (Apresoline) 25 mg Q4H PRN ORAL prn bp over 160 syst 04/21/19 18:04 05/21/19 18:03 04/24/19 16:31 Hydralazine HCl (Apresoline) 75 mg Q8HR ORAL 04/23/19 14:00 05/22/19 13:59 04/27/19 05:04 Insulin Aspart (NovoLOG) BEFORE MEALS AND HS SUBQ 04/21/19 21:00 05/18/19 16:29 04/27/19 05:48 Insulin Detemir (Levemir) 12 units BEDTIME SUBQ 04/22/19 21:00 05/19/19 20:59 04/26/19 20:37 Levothyroxine Sodium (Synthroid) 100 mcg DAILY@0630 ORAL 04/22/19 06:30 05/19/19 06:29 04/27/19 05:46 Metoclopramide HCl (Reglan) 10 mg Q6H PRN IVP Nausea & Vomiting 04/21/19 18:04 05/21/19 18:03 Montelukast Sodium (Singulair) 10 mg QPM ORAL 04/25/19 16:30 05/25/19 16:29 04/26/19 17:08 Pantoprazole (Protonix) 40 mg EVERY 12 HOURS ORAL 04/21/19 21:00 05/18/19 20:59 04/27/19 08:58 Sennosides (Senokot) 8.6 mg DAILY ORAL 04/22/19 09:00 05/19/19 08:59 04/27/19 08:58 Last 24 Hour Vital Signs Date Time Temp Pulse Resp B/P (MAP) Pulse Ox O2 Delivery O2 Flow Rate FiO2 04/27/19 08:58 76 152/62 04/27/19 08:58 76 152/62 04/27/19 08:00 99.3 76 18 152/62 (92) 99 04/27/19 05:04 152/67 04/27/19 04:00 99.1 77 18 152/67 (95) 98 04/27/19 01:50 2.0 04/27/19 01:06 78 19 99 Facial 30 04/27/19 00:00 97.5 72 18 143/61 (88) 96 04/26/19 23:22 82 15 98 Facial 30 04/26/19 23:00 30 04/26/19 22:12 76 153/67 (95) 04/26/19 22:10 153/67 04/26/19 21:00 Nasal Cannula 2.0 04/26/19 20:35 79 170/68 04/26/19 20:09 97 Nasal Cannula 2.0 28 04/26/19 20:00 2.0 04/26/19 20:00 98.4 79 17 170/68 (102) 96 04/26/19 16:00 2.0 04/26/19 16:00 98.1 74 19 146/70 (95) 97 04/26/19 13:59 155/72 04/26/19 12:00 98.6 72 19 155/72 (99) 97 04/26/19 12:00 2.0 04/26/19 09:09 70 160/73 04/26/19 09:09 70 160/73 04/26/19 09:00 Nasal Cannula 2.0 04/26/19 08:00 2.0 04/26/19 08:00 98.7 70 18 160/73 (102) 98 04/26/19 07:02 96 Nasal Cannula 2.0 28 04/26/19 05:23 93 160/82 (108) 04/26/19 05:21 160/82 04/26/19 04:00 98.8 67 18 142/59 (86) 100 04/26/19 04:00 2.0 04/26/19 01:06 86 18 99 Facial 30 04/26/19 00:00 98.1 68 16 149/60 (89) 98 04/25/19 22:53 30 04/25/19 22:49 148/63 04/25/19 22:48 79 19 99 Facial 30 04/25/19 21:00 Nasal Cannula 2.0 04/25/19 20:22 71 161/64 04/25/19 20:00 98.3 71 18 167/64 (98) 96 04/25/19 20:00 2.0 04/25/19 18:50 91 Nasal Cannula 2.0 28 04/25/19 16:00 2.0 04/25/19 13:45 147/76 04/25/19 12:00 98.9 81 18 147/76 (99) 97 04/25/19 12:00 2.0 Intake and Output 04/26/19 04/27/19 19:00 07:00 Intake Total 250 ml 400 ml Output Total 3000 ml Balance -2750 ml 400 ml Intake Oral 250 ml 400 ml Hemodialysis UF 3000 ml # Voids 1 # Bowel Movements 1 1 Labs Test 04/25/19 05:30 04/26/19 08:30 04/27/19 06:30 White Blood Count 3.9 K/UL (4.8-10.8) 3.5 K/UL (4.8-10.8) Red Blood Count 3.24 M/UL (4.20-5.40) 3.26 M/UL (4.20-5.40) Hemoglobin 9.7 G/DL (12.0-16.0) 9.8 G/DL (12.0-16.0) Hematocrit 30.3 % (37.0-47.0) 30.5 % (37.0-47.0) Mean Corpuscular Volume 93 FL (80-99) 94 FL (80-99) Mean Corpuscular Hemoglobin 30.0 PG (27.0-31.0) 30.1 PG (27.0-31.0) Mean Corpuscular Hemoglobin Concent 32.1 G/DL (32.0-36.0) 32.2 G/DL (32.0-36.0) Red Cell Distribution Width 14.3 % (11.6-14.8) 14.1 % (11.6-14.8) Platelet Count 232 K/UL (150-450) 227 K/UL (150-450) Mean Platelet Volume 6.4 FL (6.5-10.1) 6.0 FL (6.5-10.1) Neutrophils (%) (Auto) 69.6 % (45.0-75.0) 68.0 % (45.0-75.0) Lymphocytes (%) (Auto) 14.0 % (20.0-45.0) 17.7 % (20.0-45.0) Monocytes (%) (Auto) 11.6 % (1.0-10.0) 11.1 % (1.0-10.0) Eosinophils (%) (Auto) 3.4 % (0.0-3.0) 1.7 % (0.0-3.0) Basophils (%) (Auto) 1.5 % (0.0-2.0) 1.6 % (0.0-2.0) Sodium Level 137 MMOL/L (136-145) 139 MMOL/L (136-145) Potassium Level 3.7 MMOL/L (3.5-5.1) 3.8 MMOL/L (3.5-5.1) Chloride Level 99 MMOL/L (98-107) 101 MMOL/L (98-107) Carbon Dioxide Level 29 MMOL/L (21-32) 30 MMOL/L (21-32) Anion Gap 10 mmol/L (5-15) 8 mmol/L (5-15) Blood Urea Nitrogen 41 mg/dL (7-18) 33 mg/dL (7-18) Creatinine 4.9 MG/DL (0.55-1.30) 5.0 MG/DL (0.55-1.30) Estimat Glomerular Filtration Rate 8.8 mL/min (>60) 8.5 mL/min (>60) Glucose Level 127 MG/DL (74-106) 97 MG/DL (74-106) Calcium Level 7.9 MG/DL (8.5-10.1) 8.1 MG/DL (8.5-10.1) Phosphorus Level 4.7 MG/DL (2.5-4.9) 4.6 MG/DL (2.5-4.9) Total Bilirubin 0.4 MG/DL (0.2-1.0) 0.5 MG/DL (0.2-1.0) Aspartate Amino Transf (AST/SGOT) 16 U/L (15-37) 11 U/L (15-37) Alanine Aminotransferase (ALT/SGPT) 9 U/L (12-78) 7 U/L (12-78) Alkaline Phosphatase 95 U/L (46-116) 86 U/L (46-116) C-Reactive Protein, Quantitative 1.4 mg/dL (0.00-0.90) 1.2 mg/dL (0.00-0.90) Pro-B-Type Natriuretic Peptide > 93758 pg/mL (0-125) > 33510 pg/mL (0-125) Total Protein 7.2 G/DL (6.4-8.2) 7.1 G/DL (6.4-8.2) Albumin 3.5 G/DL (3.4-5.0) 3.5 G/DL (3.4-5.0) Globulin 3.7 g/dL 3.6 g/dL Albumin/Globulin Ratio 0.9 (1.0-2.7) 1.0 (1.0-2.7) Arterial Blood pH 7.313 (7.350-7.450) Arterial Blood Partial Pressure CO2 50.3 mmHg (35.0-45.0) Arterial Blood Partial Pressure O2 94.3 mmHg (75.0-100.0) Arterial Blood HCO3 24.9 mmol/L (22.0-26.0) Arterial Blood Oxygen Saturation 96.3 % (95-100) Arterial Blood Base Excess -1.6 (-2-2) Faheem Test Positive Height (Feet): 4 Height (Inches): 11.00 Weight (Pounds): 172 Objective VITAL SIGNS: Reviewed. GENERAL: No distress. PULMONARY: Decreased breath sounds. ++ BIPAP nighttime, NC+ daytime CARDIOVASCULAR: Regular rate. No S3 or S4. ABDOMEN: Soft, nontender, and nondistended. EXTREMITIES: 1+ edema noted . ++ Left AVS Carl Daniels MD Apr 27, 2019 09:20
--- NOTE | 2019-04-27 11:52 | General Progress Note ---
Assessment/Plan Problem List: (1) Pulmonary congestion ICD Codes: R09.89 - Other specified symptoms and signs involving the circulatory and respiratory systems SNOMED: 31625397 (2) Pneumonia ICD Codes: J18.9 - Pneumonia, unspecified organism SNOMED: 519326304 (3) Renal failure ICD Codes: N19 - Unspecified kidney failure SNOMED: 56753975 (4) ESRD (end stage renal disease) ICD Codes: N18.6 - End stage renal disease SNOMED: 10594877 (5) Dyspnea ICD Codes: R06.00 - Dyspnea, unspecified SNOMED: 167340350 (6) Anemia in chronic kidney disease (CKD) ICD Codes: N18.9 - Chronic kidney disease, unspecified; D63.1 - Anemia in chronic kidney disease SNOMED: 312725961 Status: progressing Assessment/Plan: pna improved dc once cleared by pulmonary and renal esrd on hd home oxygen per pulmonary on oxygen Subjective Respiratory: Reports: shortness of breath Allergies: Coded Allergies: No Known Allergies (Unverified , 05/12/17) Objective Last 24 Hour Vital Signs Date Time Temp Pulse Resp B/P (MAP) Pulse Ox O2 Delivery O2 Flow Rate FiO2 04/27/19 09:30 96 Nasal Cannula 2.0 28 04/27/19 09:00 Nasal Cannula 2.0 04/27/19 08:58 76 152/62 04/27/19 08:58 76 152/62 04/27/19 08:00 2.0 04/27/19 08:00 99.3 76 18 152/62 (92) 99 04/27/19 05:04 152/67 04/27/19 04:00 99.1 77 18 152/67 (95) 98 04/27/19 01:50 2.0 04/27/19 01:06 78 19 99 Facial 30 04/27/19 00:00 97.5 72 18 143/61 (88) 96 04/26/19 23:22 82 15 98 Facial 30 04/26/19 23:00 30 04/26/19 22:12 76 153/67 (95) 04/26/19 22:10 153/67 04/26/19 21:00 Nasal Cannula 2.0 04/26/19 20:35 79 170/68 04/26/19 20:09 97 Nasal Cannula 2.0 28 04/26/19 20:00 2.0 04/26/19 20:00 98.4 79 17 170/68 (102) 96 04/26/19 16:00 2.0 04/26/19 16:00 98.1 74 19 146/70 (95) 97 04/26/19 13:59 155/72 04/26/19 12:00 98.6 72 19 155/72 (99) 97 04/26/19 12:00 2.0 Intake and Output 04/26/19 04/27/19 19:00 07:00 Intake Total 250 ml 400 ml Output Total 3000 ml Balance -2750 ml 400 ml Intake Oral 250 ml 400 ml Hemodialysis UF 3000 ml # Voids 1 # Bowel Movements 1 1 Laboratory Tests 04/27/19 06:30: White Blood Count 3.5L, Red Blood Count 3.26L, Hemoglobin 9.8L, Hematocrit 30.5L , Mean Corpuscular Volume 94, Mean Corpuscular Hemoglobin 30.1, Mean Corpuscular Hemoglobin Concent 32.2, Red Cell Distribution Width 14.1, Platelet Count 227, Mean Platelet Volume 6.0L, Neutrophils (%) (Auto) 68.0, Lymphocytes ( %) (Auto) 17.7L, Monocytes (%) (Auto) 11.1H, Eosinophils (%) (Auto) 1.7, Basophils (%) (Auto) 1.6, Sodium Level 139, Potassium Level 3.8, Chloride Level 101, Carbon Dioxide Level 30, Anion Gap 8, Blood Urea Nitrogen 33H, Creatinine 5.0H, Estimat Glomerular Filtration Rate 8.5, Glucose Level 97, Calcium Level 8.1L, Phosphorus Level 4.6, Total Bilirubin 0.5, Aspartate Amino Transf (AST/ SGOT) 11L, Alanine Aminotransferase (ALT/SGPT) 7L, Alkaline Phosphatase 86, C- Reactive Protein, Quantitative 1.2H, Pro-B-Type Natriuretic Peptide > 18980Q, Total Protein 7.1, Albumin 3.5, Globulin 3.6, Albumin/Globulin Ratio 1.0 Height (Feet): 4 Height (Inches): 11.00 Weight (Pounds): 172 Cardiovascular: normal rate Respiratory/Chest: lungs clear Abdomen: soft Makenna Daniel MD Apr 27, 2019 11:52
[2019-04-27 12:00] VITALS: BP_SYST 131; BP_SYST 152; BP_DIAS 51; BP_DIAS 67
--- NOTE | 2019-04-27 12:42 | NUR ---
DISCHARGE PLANNING PATIENT HAS BEEN REFERRED TO [facility] (FOR HOME OXYGEN) T: [phone] F: [phone] WILL BE REFERRED TO [facility] T:[phone] F: [phone] 8WAITING FOR OXYGEN TO BE DELIVERED TO BEDSIDE AND CLEARANCE FROM DR GARCIA TO DISCHARGE
--- NOTE | 2019-04-27 12:43 | Infectious Diseases Prog Note ---
Assessment/Plan Assessment/Plan IMPRESSION: 1. Dyspnea, likely secondary to congestive hear failure. 2. Hypoxemic respiratory failure. 3. End-stage renal disease, on hemodialysis. 4. Diabetes mellitus. 5. Diastolic CHF. 6. Aortic stenosis. 7. Hypertension. 8. Anemia. 9. Leukopenia. RECOMMENDATIONS: 1. Observe off antibiotic 2. agree with discharge Subjective ROS Limited/Unobtainable: Yes Constitutional: Reports: no symptoms Allergies: Coded Allergies: No Known Allergies (Unverified , 05/12/17) Objective Vital Signs Last 24 Hour Vital Signs Date Time Temp Pulse Resp B/P (MAP) Pulse Ox O2 Delivery O2 Flow Rate FiO2 04/27/19 09:30 96 Nasal Cannula 2.0 28 04/27/19 09:00 Nasal Cannula 2.0 04/27/19 08:58 76 152/62 04/27/19 08:58 76 152/62 04/27/19 08:00 2.0 04/27/19 08:00 99.3 76 18 152/62 (92) 99 04/27/19 05:04 152/67 04/27/19 04:00 99.1 77 18 152/67 (95) 98 04/27/19 01:50 2.0 04/27/19 01:06 78 19 99 Facial 30 04/27/19 00:00 97.5 72 18 143/61 (88) 96 04/26/19 23:22 82 15 98 Facial 30 04/26/19 23:00 30 04/26/19 22:12 76 153/67 (95) 04/26/19 22:10 153/67 04/26/19 21:00 Nasal Cannula 2.0 04/26/19 20:35 79 170/68 04/26/19 20:09 97 Nasal Cannula 2.0 28 04/26/19 20:00 2.0 04/26/19 20:00 98.4 79 17 170/68 (102) 96 04/26/19 16:00 2.0 04/26/19 16:00 98.1 74 19 146/70 (95) 97 04/26/19 13:59 155/72 Height (Feet): 4 Height (Inches): 11.00 Weight (Pounds): 172 General Appearance: no acute distress HEENT: mucous membranes moist Respiratory/Chest: lungs clear Cardiovascular: normal rate Abdomen: soft, non tender Extremities: no edema Neurologic/Psychiatric: other - sleeping Laboratory Tests Test 04/27/19 06:30 White Blood Count 3.5 K/UL (4.8-10.8) L Red Blood Count 3.26 M/UL (4.20-5.40) L Hemoglobin 9.8 G/DL (12.0-16.0) L Hematocrit 30.5 % (37.0-47.0) L Mean Corpuscular Volume 94 FL (80-99) Mean Corpuscular Hemoglobin 30.1 PG (27.0-31.0) Mean Corpuscular Hemoglobin Concent 32.2 G/DL (32.0-36.0) Red Cell Distribution Width 14.1 % (11.6-14.8) Platelet Count 227 K/UL (150-450) Mean Platelet Volume 6.0 FL (6.5-10.1) L Neutrophils (%) (Auto) 68.0 % (45.0-75.0) Lymphocytes (%) (Auto) 17.7 % (20.0-45.0) L Monocytes (%) (Auto) 11.1 % (1.0-10.0) H Eosinophils (%) (Auto) 1.7 % (0.0-3.0) Basophils (%) (Auto) 1.6 % (0.0-2.0) Sodium Level 139 MMOL/L (136-145) Potassium Level 3.8 MMOL/L (3.5-5.1) Chloride Level 101 MMOL/L (98-107) Carbon Dioxide Level 30 MMOL/L (21-32) Anion Gap 8 mmol/L (5-15) Blood Urea Nitrogen 33 mg/dL (7-18) H Creatinine 5.0 MG/DL (0.55-1.30) H Estimat Glomerular Filtration Rate 8.5 mL/min (>60) Glucose Level 97 MG/DL (74-106) Calcium Level 8.1 MG/DL (8.5-10.1) L Phosphorus Level 4.6 MG/DL (2.5-4.9) Total Bilirubin 0.5 MG/DL (0.2-1.0) Aspartate Amino Transf (AST/SGOT) 11 U/L (15-37) L Alanine Aminotransferase (ALT/SGPT) 7 U/L (12-78) L Alkaline Phosphatase 86 U/L (46-116) C-Reactive Protein, Quantitative 1.2 mg/dL (0.00-0.90) H Pro-B-Type Natriuretic Peptide > 46357 pg/mL (0-125) H Total Protein 7.1 G/DL (6.4-8.2) Albumin 3.5 G/DL (3.4-5.0) Globulin 3.6 g/dL Albumin/Globulin Ratio 1.0 (1.0-2.7) Current Medications Medications (Trade) Dose Ordered Sig/Toya Route PRN Reason Start Time Stop Time Status Last Admin Dose Admin Acetaminophen (Tylenol) 500 mg Q4H PRN ORAL Mild Pain/Temp > 100.5 04/21/19 18:03 05/21/19 18:02 Amlodipine Besylate (Norvasc) 10 mg DAILY ORAL 04/22/19 09:00 05/19/19 08:59 04/27/19 08:58 Aspirin (ASA) 81 mg DAILY ORAL 04/22/19 09:00 05/19/19 13:36 04/27/19 08:58 Atorvastatin Calcium (Lipitor) 10 mg BEDTIME ORAL 04/21/19 21:00 05/18/19 20:59 04/26/19 20:35 Carvedilol (Coreg) 25 mg EVERY 12 HOURS ORAL 04/22/19 11:00 05/22/19 10:59 04/27/19 08:58 Dextrose (Dextrose 50%) 25 ml Q30M PRN IV Hypoglycemia 04/21/19 18:15 05/18/19 15:44 Dextrose (Dextrose 50%) 50 ml Q30M PRN IV Hypoglycemia 04/21/19 18:15 05/18/19 15:44 Docusate Sodium (Colace) 100 mg TID ORAL 04/21/19 18:05 05/21/19 18:04 04/27/19 12:06 Epoetin Panchito (Epoetin Panchito(ESRD on dialysis)) 3,000 unit THU-THU-THU SUBQ 04/22/19 21:00 05/20/19 20:59 04/25/19 20:22 Folic Acid (Folate) 3 mg DAILY ORAL 04/22/19 09:00 05/19/19 08:59 04/27/19 08:58 Gabapentin (Neurontin) 300 mg Q8HR ORAL 04/21/19 22:00 05/18/19 16:59 04/27/19 05:05 Guaifenesin/ Dextromethorphan (Robitussin DM Syrup) 5 ml Q6H PRN ORAL For Cough 04/21/19 18:03 05/21/19 18:02 Heparin Sodium (Porcine) (Heparin 5000 units/ml) 5,000 units EVERY 12 HOURS SUBQ 04/21/19 21:00 05/18/19 20:59 04/26/19 20:36 Hydralazine HCl (Apresoline) 25 mg Q4H PRN ORAL prn bp over 160 syst 04/21/19 18:04 05/21/19 18:03 04/24/19 16:31 Hydralazine HCl (Apresoline) 75 mg Q8HR ORAL 04/23/19 14:00 05/22/19 13:59 04/27/19 05:04 Insulin Aspart (NovoLOG) BEFORE MEALS AND HS SUBQ 04/21/19 21:00 05/18/19 16:29 04/27/19 12:08 Insulin Detemir (Levemir) 12 units BEDTIME SUBQ 04/22/19 21:00 05/19/19 20:59 04/26/19 20:37 Levothyroxine Sodium (Synthroid) 100 mcg DAILY@0630 ORAL 04/22/19 06:30 05/19/19 06:29 04/27/19 05:46 Metoclopramide HCl (Reglan) 10 mg Q6H PRN IVP Nausea & Vomiting 04/21/19 18:04 05/21/19 18:03 Montelukast Sodium (Singulair) 10 mg QPM ORAL 04/25/19 16:30 05/25/19 16:29 04/26/19 17:08 Pantoprazole (Protonix) 40 mg EVERY 12 HOURS ORAL 04/21/19 21:00 05/18/19 20:59 04/27/19 08:58 Sennosides (Senokot) 8.6 mg DAILY ORAL 04/22/19 09:00 05/19/19 08:59 04/27/19 08:58 Kalin Briseno MD Apr 27, 2019 12:43
--- NOTE | 2019-04-27 15:18 | Nephrology Progress Note ---
Assessment/Plan Problem List: (1) ESRD (end stage renal disease) (2) Respiratory distress (3) Anemia in chronic kidney disease (CKD) (4) Diabetic nephropathy with proteinuria (5) Hypertensive kidney disease Assessment ESRD Pulm EDema DM HTN Anemia Low B12 and Iron by history CAD . Plan CXR BP meds- adjusted stop lisinopril due to cough- start Rocephin one dose solumedrol- HD in am 04/26 2D Echo Ej Fx 50 % Pulm support per orders ? DC in am Subjective ROS Limited/Unobtainable: No Objective Objective Last 24 Hour Vital Signs Date Time Temp Pulse Resp B/P (MAP) Pulse Ox O2 Delivery O2 Flow Rate FiO2 04/27/19 13:37 131/51 04/27/19 12:00 98.7 74 18 131/51 (77) 100 74 04/27/19 12:00 2.0 04/27/19 09:30 96 Nasal Cannula 2.0 28 04/27/19 09:00 Nasal Cannula 2.0 04/27/19 08:58 76 152/62 04/27/19 08:58 76 152/62 04/27/19 08:00 2.0 04/27/19 08:00 99.3 76 18 152/62 (92) 99 04/27/19 05:04 152/67 04/27/19 04:00 99.1 77 18 152/67 (95) 98 04/27/19 01:50 2.0 04/27/19 01:06 78 19 99 Facial 30 04/27/19 00:00 97.5 72 18 143/61 (88) 96 04/26/19 23:22 82 15 98 Facial 30 04/26/19 23:00 30 04/26/19 22:12 76 153/67 (95) 04/26/19 22:10 153/67 04/26/19 21:00 Nasal Cannula 2.0 04/26/19 20:35 79 170/68 04/26/19 20:09 97 Nasal Cannula 2.0 28 04/26/19 20:00 2.0 04/26/19 20:00 98.4 79 17 170/68 (102) 96 04/26/19 16:00 2.0 04/26/19 16:00 98.1 74 19 146/70 (95) 97 Intake and Output 04/26/19 04/27/19 19:00 07:00 Intake Total 250 ml 400 ml Output Total 3000 ml Balance -2750 ml 400 ml Intake Oral 250 ml 400 ml Hemodialysis UF 3000 ml # Voids 1 # Bowel Movements 1 1 Laboratory Tests 04/27/19 06:30: White Blood Count 3.5L, Red Blood Count 3.26L, Hemoglobin 9.8L, Hematocrit 30.5L , Mean Corpuscular Volume 94, Mean Corpuscular Hemoglobin 30.1, Mean Corpuscular Hemoglobin Concent 32.2, Red Cell Distribution Width 14.1, Platelet Count 227, Mean Platelet Volume 6.0L, Neutrophils (%) (Auto) 68.0, Lymphocytes ( %) (Auto) 17.7L, Monocytes (%) (Auto) 11.1H, Eosinophils (%) (Auto) 1.7, Basophils (%) (Auto) 1.6, Sodium Level 139, Potassium Level 3.8, Chloride Level 101, Carbon Dioxide Level 30, Anion Gap 8, Blood Urea Nitrogen 33H, Creatinine 5.0H, Estimat Glomerular Filtration Rate 8.5, Glucose Level 97, Calcium Level 8.1L, Phosphorus Level 4.6, Total Bilirubin 0.5, Aspartate Amino Transf (AST/ SGOT) 11L, Alanine Aminotransferase (ALT/SGPT) 7L, Alkaline Phosphatase 86, C- Reactive Protein, Quantitative 1.2H, Pro-B-Type Natriuretic Peptide > [id number], Total Protein 7.1, Albumin 3.5, Globulin 3.6, Albumin/Globulin Ratio 1.0 Height (Feet): 4 Height (Inches): 11.00 Weight (Pounds): 172 General Appearance: no apparent distress Cardiovascular: normal rate Respiratory/Chest: lungs clear, decreased breath sounds Abdomen: soft Objective no change Francis Falk MD Apr 27, 2019 15:18
--- NOTE | 2019-04-27 15:42 | NUR ---
CASE MANAGEMENT:REVIEW 04/27/19 SI: RESPIRATORY FAILURE CHF. DM. ESRD ON HD 98.7 74 18 131/51 100% ON 2L/NC IS: SINGULAR PO QPM HYDRALAZINE PO Q8HRS LEVEMIR SQ QHS COREG PO Q12 NORVASC PO QD ASA PO QD : MED/SURG STATUS 4 EAST DCP: PLAN IS TO RETURN HOME AND CONTINUE WITH OUTPT DIALYSIS PLAN: PATIENT HAS BEEN REFERRED TO [facility] FOR HOME OXYGEN WAITING FOR OXYGEN TO BE DELIVERED AND CLEARANCE FROM [facility] DISCHARGE
[2019-04-27 16:00] VITALS: BP 140/62
--- NOTE | 2019-04-27 16:34 | NUR ---
NURSE NOTES: I called [facility] to scheduled dialysis for 04/28/19 and spoke with Corbin; dialysis nurse will call to confirm.
[2019-04-27] MEDS: Montelukast 10mg tablet ORAL SCH (17:14)
--- NOTE | 2019-04-27 18:00 | Pulmonology Progress Note ---
Assessment/Plan Assessment/Plan Pulmonary Progress Note HPI Patient is a 69 year old woman presenting with shortness of breath/cough ongoing for several days, patient has CKD, HTN, DM, CAD, Asthma, receives dialysis on Thursday and Thursday No current SOB, she denies any fever, no nausea, vomiting or diarrhea, has fatigue and malaise, no chest pain. Adequate PaO2 on RA, desaturated to 86% on walking, Home O2 ordered Ambulating well, no significant SOB at rest Allergies: No Known Allergies Past Medical History: CKD on HD, HTN, DM, Asthma, previous CAD All Other Systems: negative except mentioned in HPI Physical Exam Vital Signs Noted General Appearance: no distress on RA Head: normocephalic, atraumatic Eyes: bilateral eye PERRL, bilateral eye EOMI ENT: moist mm Neck: no LN Respiratory: no retraction, no accessory muscle use, CTAB Cardiovascular: normal peripheral pulses, regular rate, rhythm, no JVD, no murmur, normal hS1/HS2 Gastrointestinal: normal bowel sounds, non tender, soft, no mass, no organomegaly, non-distended, no guarding, no hernia, no pulsatile mass, no rebound Genitourinary: no CVA tenderness Musculoskeletal: normal inspection - AV left arm Neurologic: oriented x3, responsive, technical support specialist III-XII nml as tested, motor strength/ tone normal, sensory intact Skin: no rash, no edema Impression: Respiratory distress- stable Pulmonary congestion ESRD (end stage renal disease) on HD Hypertension Diabetes CAD Plan: HD per Renal NC O2 PRN HHN PRN Monitor labs and adjust therapy keep negative dc planning, home O2 ordered Home HHN [place] close follow up for change in respiratory status impression, plan, and exam edited and reviewed in detail care discussed with RN Labs noted Chest X-Ray: no consolidation, no pneumothorax, other - pulmonary congestion VQ low probability Subjective ROS Limited/Unobtainable: No Allergies: Coded Allergies: No Known Allergies (Unverified , 05/12/17) Objective Last 24 Hour Vital Signs Date Time Temp Pulse Resp B/P (MAP) Pulse Ox O2 Delivery O2 Flow Rate FiO2 04/27/19 16:00 98.4 72 19 140/62 (88) 97 72 04/27/19 16:00 2.0 04/27/19 13:37 131/51 04/27/19 12:00 98.7 74 18 131/51 (77) 100 74 04/27/19 12:00 2.0 04/27/19 09:30 96 Nasal Cannula 2.0 28 04/27/19 09:00 Nasal Cannula 2.0 04/27/19 08:58 76 152/62 04/27/19 08:58 76 152/62 04/27/19 08:00 2.0 04/27/19 08:00 99.3 76 18 152/62 (92) 99 04/27/19 05:04 152/67 04/27/19 04:00 99.1 77 18 152/67 (95) 98 04/27/19 01:50 2.0 04/27/19 01:06 78 19 99 Facial 30 04/27/19 00:00 97.5 72 18 143/61 (88) 96 04/26/19 23:22 82 15 98 Facial 30 04/26/19 23:00 30 04/26/19 22:12 76 153/67 (95) 04/26/19 22:10 153/67 04/26/19 21:00 Nasal Cannula 2.0 04/26/19 20:35 79 170/68 04/26/19 20:09 97 Nasal Cannula 2.0 28 04/26/19 20:00 2.0 04/26/19 20:00 98.4 79 17 170/68 (102) 96 Intake and Output 04/26/19 04/27/19 19:00 07:00 Intake Total 250 ml 400 ml Output Total 3000 ml Balance -2750 ml 400 ml Intake Oral 250 ml 400 ml Hemodialysis UF 3000 ml # Voids 1 # Bowel Movements 1 1 Laboratory Tests 04/27/19 06:30: White Blood Count 3.5L, Red Blood Count 3.26L, Hemoglobin 9.8L, Hematocrit 30.5L , Mean Corpuscular Volume 94, Mean Corpuscular Hemoglobin 30.1, Mean Corpuscular Hemoglobin Concent 32.2, Red Cell Distribution Width 14.1, Platelet Count 227, Mean Platelet Volume 6.0L, Neutrophils (%) (Auto) 68.0, Lymphocytes ( %) (Auto) 17.7L, Monocytes (%) (Auto) 11.1H, Eosinophils (%) (Auto) 1.7, Basophils (%) (Auto) 1.6, Sodium Level 139, Potassium Level 3.8, Chloride Level 101, Carbon Dioxide Level 30, Anion Gap 8, Blood Urea Nitrogen 33H, Creatinine 5.0H, Estimat Glomerular Filtration Rate 8.5, Glucose Level 97, Calcium Level 8.1L, Phosphorus Level 4.6, Total Bilirubin 0.5, Aspartate Amino Transf (AST/ SGOT) 11L, Alanine Aminotransferase (ALT/SGPT) 7L, Alkaline Phosphatase 86, C- Reactive Protein, Quantitative 1.2H, Pro-B-Type Natriuretic Peptide > 39826T, Total Protein 7.1, Albumin 3.5, Globulin 3.6, Albumin/Globulin Ratio 1.0 Current Medications Medications (Trade) Dose Ordered Sig/Toya Route PRN Reason Start Time Stop Time Status Last Admin Dose Admin Acetaminophen (Tylenol) 500 mg Q4H PRN ORAL Mild Pain/Temp > 100.5 04/21/19 18:03 05/21/19 18:02 Amlodipine Besylate (Norvasc) 10 mg DAILY ORAL 04/22/19 09:00 05/19/19 08:59 04/27/19 08:58 Aspirin (ASA) 81 mg DAILY ORAL 04/22/19 09:00 05/19/19 13:36 04/27/19 08:58 Atorvastatin Calcium (Lipitor) 10 mg BEDTIME ORAL 04/21/19 21:00 05/18/19 20:59 04/26/19 20:35 Carvedilol (Coreg) 25 mg EVERY 12 HOURS ORAL 04/22/19 11:00 05/22/19 10:59 04/27/19 08:58 Dextrose (Dextrose 50%) 25 ml Q30M PRN IV Hypoglycemia 04/21/19 18:15 05/18/19 15:44 Dextrose (Dextrose 50%) 50 ml Q30M PRN IV Hypoglycemia 04/21/19 18:15 05/18/19 15:44 Docusate Sodium (Colace) 100 mg TID ORAL 04/21/19 18:05 05/21/19 18:04 04/27/19 17:14 Epoetin Panchito (Epoetin Panchito(ESRD on dialysis)) 3,000 unit THU-THU-THU SUBQ 04/22/19 21:00 05/20/19 20:59 04/25/19 20:22 Folic Acid (Folate) 3 mg DAILY ORAL 04/22/19 09:00 05/19/19 08:59 04/27/19 08:58 Gabapentin (Neurontin) 300 mg Q8HR ORAL 04/21/19 22:00 05/18/19 16:59 04/27/19 13:37 Guaifenesin/ Dextromethorphan (Robitussin DM Syrup) 5 ml Q6H PRN ORAL For Cough 04/21/19 18:03 05/21/19 18:02 Heparin Sodium (Porcine) (Heparin 5000 units/ml) 5,000 units EVERY 12 HOURS SUBQ 04/21/19 21:00 05/18/19 20:59 04/26/19 20:36 Hydralazine HCl (Apresoline) 25 mg Q4H PRN ORAL prn bp over 160 syst 04/21/19 18:04 05/21/19 18:03 04/24/19 16:31 Hydralazine HCl (Apresoline) 75 mg Q8HR ORAL 04/23/19 14:00 05/22/19 13:59 04/27/19 13:37 Insulin Aspart (NovoLOG) BEFORE MEALS AND HS SUBQ 04/21/19 21:00 05/18/19 16:29 04/27/19 17:15 Insulin Detemir (Levemir) 12 units BEDTIME SUBQ 04/22/19 21:00 05/19/19 20:59 04/26/19 20:37 Levothyroxine Sodium (Synthroid) 100 mcg DAILY@0630 ORAL 04/22/19 06:30 05/19/19 06:29 04/27/19 05:46 Metoclopramide HCl (Reglan) 10 mg Q6H PRN IVP Nausea & Vomiting 04/21/19 18:04 05/21/19 18:03 Montelukast Sodium (Singulair) 10 mg QPM ORAL 04/25/19 16:30 05/25/19 16:29 04/27/19 17:14 Pantoprazole (Protonix) 40 mg EVERY 12 HOURS ORAL 04/21/19 21:00 05/18/19 20:59 04/27/19 08:58 Sennosides (Senokot) 8.6 mg DAILY ORAL 04/22/19 09:00 05/19/19 08:59 04/27/19 08:58 Brandon Herbert MD Apr 27, 2019 18:00
--- NOTE | 2019-04-27 19:19 | NUR ---
HAND-OFF: Report given to SIDNEY Cleary.
--- NOTE | 2019-04-27 19:30 | NUR ---
NURSE NOTES: Pt received in bed, on o2 via nc. no acute distress at this time. Call light in reach. will monitor.
[2019-04-27 20:00] VITALS: BP 138/64
[2019-04-27] MEDS: Levemir Flexpen SUBQ SCH (21:15)
[2019-04-27] MEDS: Epoetin Alfa-EPBX(ESRD on dialysis)3000 units/ml vial SUBQ SCH (21:18)
[2019-04-28] VITALS: BP 127/58
[2019-04-28 04:00] VITALS: BP 128/57
[2019-04-28] MEDS: HydrALAZINE 50mg tab ORAL SCH ×3 (06:00→15:23)
[2019-04-28] MEDS: NovoLOG Insulin Flexpen SUBQ SCH ×3 (06:06→17:22)
--- NOTE | 2019-04-28 06:17 | Hematology/Onc Progress Note ---
Assessment/Plan Assessment/Plan Assessment/Recs 1. Anemia due to underlying chronic disease. Have reviewed prior workup, ferritin is >1000, though percent saturation Tsat <30, but not recommended for further iron --> Continue to closely monitor. --> Transfuse if hgb <7 --> ferritin is >600, therefore hold off on iron --> continue epogen, has been started with hd --> hgb trend 9.6-->9.4-->9.7-->9.8 --> monitor for gi bleed 2. Leukopenia likely reactive process v infection --> hepatitis and hiv prior NEGATIVE --> neutropenic precautions if ANC <1500 --> trending stable --> imaging reviewed and no hsm / cirrhosis noted prior --> wbc trend 3.1-->3.4-->2.6-->3.9-->3.5 --> US ABD STILL pending 3. End-stage renal disease, on hemodialysis three times a week. continue mwf --> renal consulted --> hd for 04/21, 04/23, 04/26 4. Coronary artery disease. --> cards reviewed --> with fluid overload may need diuresis --> with less sob 5. History of anemia due to low B12, low iron. --> b12 is currently within normal limits --> reobtain q6mo 6. Dizziness and unsteady gait. 7. DVt ppx with heparin sq Greatly appreciate consultation. Subjective Constitutional: Denies: no symptoms, chills, fever, malaise, weakness, other HEENT: Denies: no symptoms, eye pain, blurred vision, tearing, double vision, ear pain, ear discharge, nose pain, nose congestion, throat pain, throat swelling, mouth pain, mouth swelling, other Cardiovascular: Denies: no symptoms, chest pain, edema, irregular heart rate, lightheadedness, palpitations, syncope, other Respiratory: Denies: no symptoms, cough, shortness of breath, SOB with excertion, SOB at rest, sputum, wheezing, other Gastrointestinal/Abdominal: Denies: no symptoms, abdomen distended, abdominal pain, black stools, tarry stools, blood in stool, constipated, diarrhea, difficulty swallowing, nausea, poor appetite, poor fluid intake, rectal bleeding , vomiting, other Genitourinary: Denies: no symptoms, burning, discharge, frequency, flank pain, hematuria, incontinence, pain, urgency, other Neurologic/Psychiatric: Denies: no symptoms, anxiety, depressed, emotional problems, headache, numbness, paresthesia, pre-existing deficit, seizure, tingling, tremors, weakness, other Endocrine: Denies: no symptoms, excessive sweating, flushing, intolerance to cold, intolerance to heat, increased hunger, increased thirst, increased urine, unexplained weight gain, unexplained weight loss, other Allergies: Coded Allergies: No Known Allergies (Unverified , 05/12/17) Subjective 04/20: bs was low o/n, 54 dw rn, and given oj, labs reviewed 04/21: getting hd, no events, no bleeding, no f/c 04/22: on 2l nc, no bleeding or chills, using bipap prn basis 04/23: no events, hd for today, has been ordered with vip hd 04/25: no bleeding, no major events, hd as per renal, labs noted 04/26: on 2l nc, on bipap, no major changes 04/27: no acute events, hd last night, nc 2l,, h/h stable 04/28: labs pending, no events overnight hd for thu Objective Objective Current Medications Medications (Trade) Dose Ordered Sig/Toya Route PRN Reason Start Time Stop Time Status Last Admin Dose Admin Acetaminophen (Tylenol) 500 mg Q4H PRN ORAL Mild Pain/Temp > 100.5 04/21/19 18:03 05/21/19 18:02 Amlodipine Besylate (Norvasc) 10 mg DAILY ORAL 04/22/19 09:00 05/19/19 08:59 04/27/19 08:58 Aspirin (ASA) 81 mg DAILY ORAL 04/22/19 09:00 05/19/19 13:36 04/27/19 08:58 Atorvastatin Calcium (Lipitor) 10 mg BEDTIME ORAL 04/21/19 21:00 05/18/19 20:59 04/27/19 21:14 Carvedilol (Coreg) 25 mg EVERY 12 HOURS ORAL 04/22/19 11:00 05/22/19 10:59 04/27/19 21:14 Dextrose (Dextrose 50%) 25 ml Q30M PRN IV Hypoglycemia 04/21/19 18:15 05/18/19 15:44 Dextrose (Dextrose 50%) 50 ml Q30M PRN IV Hypoglycemia 04/21/19 18:15 05/18/19 15:44 Docusate Sodium (Colace) 100 mg TID ORAL 04/21/19 18:05 05/21/19 18:04 04/27/19 17:14 Epoetin Panchito (Epoetin Panchito(ESRD on dialysis)) 3,000 unit THU-THU-THU SUBQ 04/22/19 21:00 05/20/19 20:59 04/27/19 21:18 Folic Acid (Folate) 3 mg DAILY ORAL 04/22/19 09:00 05/19/19 08:59 04/27/19 08:58 Gabapentin (Neurontin) 300 mg Q8HR ORAL 04/21/19 22:00 05/18/19 16:59 04/28/19 06:05 Guaifenesin/ Dextromethorphan (Robitussin DM Syrup) 5 ml Q6H PRN ORAL For Cough 04/21/19 18:03 05/21/19 18:02 Heparin Sodium (Porcine) (Heparin 5000 units/ml) 5,000 units EVERY 12 HOURS SUBQ 04/21/19 21:00 05/18/19 20:59 04/26/19 20:36 Hydralazine HCl (Apresoline) 25 mg Q4H PRN ORAL prn bp over 160 syst 04/21/19 18:04 05/21/19 18:03 04/24/19 16:31 Hydralazine HCl (Apresoline) 75 mg Q8HR ORAL 04/23/19 14:00 05/22/19 13:59 04/27/19 21:13 Insulin Aspart (NovoLOG) BEFORE MEALS AND HS SUBQ 04/21/19 21:00 05/18/19 16:29 04/27/19 21:16 Insulin Detemir (Levemir) 12 units BEDTIME SUBQ 04/22/19 21:00 05/19/19 20:59 04/27/19 21:15 Levothyroxine Sodium (Synthroid) 100 mcg DAILY@0630 ORAL 04/22/19 06:30 05/19/19 06:29 04/28/19 06:05 Metoclopramide HCl (Reglan) 10 mg Q6H PRN IVP Nausea & Vomiting 04/21/19 18:04 05/21/19 18:03 Montelukast Sodium (Singulair) 10 mg QPM ORAL 04/25/19 16:30 05/25/19 16:29 04/27/19 17:14 Pantoprazole (Protonix) 40 mg EVERY 12 HOURS ORAL 04/21/19 21:00 05/18/19 20:59 04/27/19 21:13 Sennosides (Senokot) 8.6 mg DAILY ORAL 04/22/19 09:00 05/19/19 08:59 04/27/19 08:58 Last 24 Hour Vital Signs Date Time Temp Pulse Resp B/P (MAP) Pulse Ox O2 Delivery O2 Flow Rate FiO2 04/28/19 06:00 128/57 04/28/19 04:00 98.3 67 20 128/57 (80) 94 04/28/19 03:10 2.0 04/28/19 00:58 30 04/28/19 00:55 99 Bi-Pap 04/28/19 00:55 81 18 99 Facial 30 04/28/19 00:00 2.0 04/28/19 00:00 98.6 66 18 127/58 (81) 98 04/27/19 21:14 84 138/64 04/27/19 21:13 138/64 04/27/19 21:00 Nasal Cannula 2.0 04/27/19 20:00 98.5 84 18 138/64 (88) 98 04/27/19 20:00 2.0 04/27/19 16:00 98.4 72 19 140/62 (88) 97 72 04/27/19 16:00 2.0 04/27/19 13:37 131/51 04/27/19 12:00 98.7 74 18 131/51 (77) 100 74 04/27/19 12:00 2.0 04/27/19 09:30 96 Nasal Cannula 2.0 28 04/27/19 09:00 Nasal Cannula 2.0 04/27/19 08:58 76 152/62 04/27/19 08:58 76 152/62 04/27/19 08:00 2.0 04/27/19 08:00 99.3 76 18 152/62 (92) 99 04/27/19 05:04 152/67 04/27/19 04:00 99.1 77 18 152/67 (95) 98 04/27/19 01:50 2.0 04/27/19 01:06 78 19 99 Facial 30 04/27/19 00:00 97.5 72 18 143/61 (88) 96 04/26/19 23:22 82 15 98 Facial 30 04/26/19 23:00 30 04/26/19 22:12 76 153/67 (95) 04/26/19 22:10 153/67 04/26/19 21:00 Nasal Cannula 2.0 04/26/19 20:35 79 170/68 04/26/19 20:09 97 Nasal Cannula 2.0 28 04/26/19 20:00 2.0 04/26/19 20:00 98.4 79 17 170/68 (102) 96 04/26/19 16:00 2.0 04/26/19 16:00 98.1 74 19 146/70 (95) 97 04/26/19 13:59 155/72 04/26/19 12:00 98.6 72 19 155/72 (99) 97 04/26/19 12:00 2.0 04/26/19 09:09 70 160/73 04/26/19 09:09 70 160/73 04/26/19 09:00 Nasal Cannula 2.0 04/26/19 08:00 2.0 04/26/19 08:00 98.7 70 18 160/73 (102) 98 04/26/19 07:02 96 Nasal Cannula 2.0 28 Intake and Output 04/27/19 04/28/19 18:59 06:59 Intake Total 230 ml Balance 230 ml Intake Oral 230 ml # Voids 1 1 Labs Test 04/26/19 08:30 04/27/19 06:30 Arterial Blood pH 7.313 (7.350-7.450) Arterial Blood Partial Pressure CO2 50.3 mmHg (35.0-45.0) Arterial Blood Partial Pressure O2 94.3 mmHg (75.0-100.0) Arterial Blood HCO3 24.9 mmol/L (22.0-26.0) Arterial Blood Oxygen Saturation 96.3 % (95-100) Arterial Blood Base Excess -1.6 (-2-2) Faheem Test Positive White Blood Count 3.5 K/UL (4.8-10.8) Red Blood Count 3.26 M/UL (4.20-5.40) Hemoglobin 9.8 G/DL (12.0-16.0) Hematocrit 30.5 % (37.0-47.0) Mean Corpuscular Volume 94 FL (80-99) Mean Corpuscular Hemoglobin 30.1 PG (27.0-31.0) Mean Corpuscular Hemoglobin Concent 32.2 G/DL (32.0-36.0) Red Cell Distribution Width 14.1 % (11.6-14.8) Platelet Count 227 K/UL (150-450) Mean Platelet Volume 6.0 FL (6.5-10.1) Neutrophils (%) (Auto) 68.0 % (45.0-75.0) Lymphocytes (%) (Auto) 17.7 % (20.0-45.0) Monocytes (%) (Auto) 11.1 % (1.0-10.0) Eosinophils (%) (Auto) 1.7 % (0.0-3.0) Basophils (%) (Auto) 1.6 % (0.0-2.0) Sodium Level 139 MMOL/L (136-145) Potassium Level 3.8 MMOL/L (3.5-5.1) Chloride Level 101 MMOL/L (98-107) Carbon Dioxide Level 30 MMOL/L (21-32) Anion Gap 8 mmol/L (5-15) Blood Urea Nitrogen 33 mg/dL (7-18) Creatinine 5.0 MG/DL (0.55-1.30) Estimat Glomerular Filtration Rate 8.5 mL/min (>60) Glucose Level 97 MG/DL (74-106) Calcium Level 8.1 MG/DL (8.5-10.1) Phosphorus Level 4.6 MG/DL (2.5-4.9) Total Bilirubin 0.5 MG/DL (0.2-1.0) Aspartate Amino Transf (AST/SGOT) 11 U/L (15-37) Alanine Aminotransferase (ALT/SGPT) 7 U/L (12-78) Alkaline Phosphatase 86 U/L (46-116) C-Reactive Protein, Quantitative 1.2 mg/dL (0.00-0.90) Pro-B-Type Natriuretic Peptide > 75415 pg/mL (0-125) Total Protein 7.1 G/DL (6.4-8.2) Albumin 3.5 G/DL (3.4-5.0) Globulin 3.6 g/dL Albumin/Globulin Ratio 1.0 (1.0-2.7) Height (Feet): 4 Height (Inches): 11.00 Weight (Pounds): 161 Objective VITAL SIGNS: Reviewed. GENERAL: No distress. PULMONARY: Decreased breath sounds. ++ BIPAP nighttime, NC+ daytime CARDIOVASCULAR: Regular rate. No S3 or S4. ABDOMEN: Soft, nontender, and nondistended. EXTREMITIES: 1+ edema noted . ++ Left AVS Carl Daniels MD Apr 28, 2019 06:17
--- NOTE | 2019-04-28 06:25 | NUR ---
NURSE NOTES: Noted new order for US abdomen by Dr. Daniels. Pt was notified and made aware of NPO status. Pt had only eaten small amounts of ice chips since midnight. RATE [employer]ERTER instructed to hold breakfast tray.
--- NOTE | 2019-04-28 07:32 | NUR ---
HAND-OFF: Report given to [facility].
--- NOTE | 2019-04-28 07:41 | NUR ---
NURSE NOTES: received report from SIDNEY Cornejo. patient in bed. getting US abd. no respiratory distress noted. no facial grimacing. IV on RH 24 saline lock. bed in the high position d/t ultra sound. locked. call light within reach. will continue to provide plan of care.
[2019-04-28 08:00] VITALS: BP 143/74
[2019-04-28] MEDS: Aspirin Baby 81mg ORAL SCH (08:37)
[2019-04-28] MEDS: Sennosides 8.6mg tab ORAL SCH (08:37)
[2019-04-28] MEDS: Docusate 100mg cap ORAL SCH ×3 (08:37→17:21)
[2019-04-28] MEDS: Carvedilol 25mg Tab ORAL SCH (08:37)
[2019-04-28] MEDS: Heparin 5000 units/ml inj SUBQ SCH (08:38)
--- NOTE | 2019-04-28 10:38 | Diagnostic Imaging Report ---
Indication: Abdominal pain Technique: Grayscale and duplex Doppler imaging of the abdomen performed. Comparison: None Findings: The liver is enlarged measuring 19 cm. The spleen is enlarged measuring 15 cm. There is no ascites. Main portal vein is patent by Doppler examination. A gallstone is present. Demonstrated part of the pancreas is unremarkable. The kidneys might be slightly echogenic. Correlate clinically for medical renal disease. Kidneys appear normal in size. There is a small echogenic focus in the left kidney which may be a small nonobstructive stone. IMPRESSION: Hepatosplenomegaly. Question of medical renal disease. Correlate clinically. Small nonobstructive stone in the left kidney suspected. Cholelithiasis
--- NOTE | 2019-04-28 11:18 | NUR ---
DISCHARGE PLANNING PATIENT HAS BEEN REFERRED TO [facility] (FOR HOME OXYGEN) T: [phone] F: [phone] STILL WAITING FOR DELIVERY CLINICALS HAVE BEEN FAXED TO [facility] T:[phone] F: [phone] ONCE OXYGEN HAS BEEN DELIVERED PLEASE GET CLEARANCE FROM DR GARCIA AND DC ORDER FROM DR GILLIAM
--- NOTE | 2019-04-28 11:32 | Infectious Diseases Prog Note ---
Assessment/Plan Assessment/Plan IMPRESSION: 1. Dyspnea, likely secondary to congestive hear failure. 2. Hypoxemic respiratory failure. 3. End-stage renal disease, on hemodialysis. 4. Diabetes mellitus. 5. Diastolic CHF. 6. Aortic stenosis. 7. Hypertension. 8. Anemia. 9. Leukopenia 10. Cholelithiasis 11. hepatosplenomegaly RECOMMENDATIONS: 1. Observe off antibiotic 2. agree with discharge Subjective ROS Limited/Unobtainable: No Constitutional: Reports: no symptoms Respiratory: Reports: no symptoms Cardiovascular: Reports: no symptoms Gastrointestinal/Abdominal: Reports: no symptoms Genitourinary: Reports: no symptoms Allergies: Coded Allergies: No Known Allergies (Unverified , 05/12/17) Objective Vital Signs Last 24 Hour Vital Signs Date Time Temp Pulse Resp B/P (MAP) Pulse Ox O2 Delivery O2 Flow Rate FiO2 04/28/19 09:00 Nasal Cannula 2.0 04/28/19 08:37 71 143/74 04/28/19 08:37 71 143/74 04/28/19 08:00 98.8 71 18 143/74 (97) 96 04/28/19 08:00 2.0 04/28/19 07:50 95 Nasal Cannula 2.0 28 04/28/19 06:00 128/57 04/28/19 04:00 98.3 67 20 128/57 (80) 94 04/28/19 03:10 2.0 04/28/19 00:58 30 04/28/19 00:55 99 Bi-Pap 04/28/19 00:55 81 18 99 Facial 30 04/28/19 00:00 2.0 04/28/19 00:00 98.6 66 18 127/58 (81) 98 04/27/19 21:14 84 138/64 04/27/19 21:13 138/64 04/27/19 21:00 Nasal Cannula 2.0 04/27/19 20:00 98.5 84 18 138/64 (88) 98 04/27/19 20:00 2.0 04/27/19 16:00 98.4 72 19 140/62 (88) 97 72 04/27/19 16:00 2.0 04/27/19 13:37 131/51 04/27/19 12:00 98.7 74 18 131/51 (77) 100 74 04/27/19 12:00 2.0 Height (Feet): 4 Height (Inches): 11.00 Weight (Pounds): 160 General Appearance: no acute distress Respiratory/Chest: lungs clear Cardiovascular: normal rate Abdomen: soft, non tender Extremities: no edema Neurologic/Psychiatric: alert, oriented x 3, responsive Current Medications Medications (Trade) Dose Ordered Sig/Toya Route PRN Reason Start Time Stop Time Status Last Admin Dose Admin Acetaminophen (Tylenol) 500 mg Q4H PRN ORAL Mild Pain/Temp > 100.5 04/21/19 18:03 05/21/19 18:02 Amlodipine Besylate (Norvasc) 10 mg DAILY ORAL 04/22/19 09:00 05/19/19 08:59 04/28/19 08:37 Aspirin (ASA) 81 mg DAILY ORAL 04/22/19 09:00 05/19/19 13:36 04/28/19 08:37 Atorvastatin Calcium (Lipitor) 10 mg BEDTIME ORAL 04/21/19 21:00 05/18/19 20:59 04/27/19 21:14 Carvedilol (Coreg) 25 mg EVERY 12 HOURS ORAL 04/22/19 11:00 05/22/19 10:59 04/28/19 08:37 Dextrose (Dextrose 50%) 25 ml Q30M PRN IV Hypoglycemia 04/21/19 18:15 05/18/19 15:44 Dextrose (Dextrose 50%) 50 ml Q30M PRN IV Hypoglycemia 04/21/19 18:15 05/18/19 15:44 Docusate Sodium (Colace) 100 mg TID ORAL 04/21/19 18:05 05/21/19 18:04 04/28/19 08:37 Epoetin Panchito (Epoetin Panchito(ESRD on dialysis)) 3,000 unit THU-THU-THU SUBQ 04/22/19 21:00 05/20/19 20:59 04/27/19 21:18 Folic Acid (Folate) 3 mg DAILY ORAL 04/22/19 09:00 05/19/19 08:59 04/28/19 08:37 Gabapentin (Neurontin) 300 mg Q8HR ORAL 04/21/19 22:00 05/18/19 16:59 04/28/19 06:05 Guaifenesin/ Dextromethorphan (Robitussin DM Syrup) 5 ml Q6H PRN ORAL For Cough 04/21/19 18:03 05/21/19 18:02 Heparin Sodium (Porcine) (Heparin 5000 units/ml) 5,000 units EVERY 12 HOURS SUBQ 04/21/19 21:00 05/18/19 20:59 04/26/19 20:36 Hydralazine HCl (Apresoline) 25 mg Q4H PRN ORAL prn bp over 160 syst 04/21/19 18:04 05/21/19 18:03 04/24/19 16:31 Hydralazine HCl (Apresoline) 75 mg Q8HR ORAL 04/23/19 14:00 05/22/19 13:59 04/27/19 21:13 Insulin Aspart (NovoLOG) BEFORE MEALS AND HS SUBQ 04/21/19 21:00 05/18/19 16:29 04/27/19 21:16 Insulin Detemir (Levemir) 12 units BEDTIME SUBQ 04/22/19 21:00 05/19/19 20:59 04/27/19 21:15 Levothyroxine Sodium (Synthroid) 100 mcg DAILY@0630 ORAL 04/22/19 06:30 05/19/19 06:29 04/28/19 06:05 Metoclopramide HCl (Reglan) 10 mg Q6H PRN IVP Nausea & Vomiting 04/21/19 18:04 05/21/19 18:03 Montelukast Sodium (Singulair) 10 mg QPM ORAL 04/25/19 16:30 05/25/19 16:29 04/27/19 17:14 Pantoprazole (Protonix) 40 mg EVERY 12 HOURS ORAL 04/21/19 21:00 05/18/19 20:59 04/28/19 08:37 Sennosides (Senokot) 8.6 mg DAILY ORAL 04/22/19 09:00 05/19/19 08:59 04/28/19 08:37 Kalin Briseno MD Apr 28, 2019 11:32
--- NOTE | 2019-04-28 11:34 | Nephrology Progress Note ---
Assessment/Plan Problem List: (1) ESRD (end stage renal disease) (2) Respiratory distress (3) Anemia in chronic kidney disease (CKD) (4) Diabetic nephropathy with proteinuria (5) Hypertensive kidney disease Assessment ESRD Pulm Edema DM HTN Anemia Low B12 and Iron by history CAD . Plan CXR BP meds- adjusted stop lisinopril due to cough- start Rocephin one dose solumedrol- HD in am 04/26 2D Echo Ej Fx 50 % Pulm support per orders ? DC when clear by pulmonary PACO: Hepatosplenomegaly. Question of medical renal disease. Small nonobstructive stone in the left kidney suspected. Cholelithiasis Subjective ROS Limited/Unobtainable: No Interval Events/Complaints seen on dialysis Objective Objective Last 24 Hour Vital Signs Date Time Temp Pulse Resp B/P (MAP) Pulse Ox O2 Delivery O2 Flow Rate FiO2 04/28/19 09:00 Nasal Cannula 2.0 04/28/19 08:37 71 143/74 04/28/19 08:37 71 143/74 04/28/19 08:00 98.8 71 18 143/74 (97) 96 04/28/19 08:00 2.0 04/28/19 07:50 95 Nasal Cannula 2.0 28 04/28/19 06:00 128/57 04/28/19 04:00 98.3 67 20 128/57 (80) 94 04/28/19 03:10 2.0 04/28/19 00:58 30 04/28/19 00:55 99 Bi-Pap 04/28/19 00:55 81 18 99 Facial 30 04/28/19 00:00 2.0 04/28/19 00:00 98.6 66 18 127/58 (81) 98 04/27/19 21:14 84 138/64 04/27/19 21:13 138/64 04/27/19 21:00 Nasal Cannula 2.0 04/27/19 20:00 98.5 84 18 138/64 (88) 98 04/27/19 20:00 2.0 04/27/19 16:00 98.4 72 19 140/62 (88) 97 72 04/27/19 16:00 2.0 04/27/19 13:37 131/51 04/27/19 12:00 98.7 74 18 131/51 (77) 100 74 04/27/19 12:00 2.0 Intake and Output 04/27/19 04/28/19 19:00 07:00 Intake Total 230 ml Balance 230 ml Intake Oral 230 ml # Voids 1 1 Height (Feet): 4 Height (Inches): 11.00 Weight (Pounds): 160 General Appearance: no apparent distress Cardiovascular: normal rate Respiratory/Chest: decreased breath sounds Abdomen: soft Objective no change Francis Falk MD Apr 28, 2019 11:33
[2019-04-28 12:00] VITALS: BP 159/78
--- NOTE | 2019-04-28 13:24 | NUR ---
DISCHARGE PLANNED [facility] 2[place]ARE WILL DELIVER OXYGEN TO BEDSIDE BETWEEN 2:00PM AND 4:00PM
--- NOTE | 2019-04-28 13:31 | NUR ---
RD ASSESSMENT & RECOMMENDATIONS SEE CARE ACTIVITY FOR COMPLETE ASSESSMENT DAILY ESTIMATED NEEDS: Needs based on ESRD on HD, DM 52.7 adj 30-35 kcals/kg [id number] total kcals 1.2-1.8 g protein/kg 63-95 g total protein Fluid per MD, on HD NUTRITION DIAGNOSIS: 1) Increased kcal and protein needs R/T renal dysfunction as evidenced by pt w/ESRD on HD. CURRENT DIET:Renal, CCHO MED, SOFT EASY CHEW PO DIET RECOMMENDATIONS: CCHO LOW, RENAL/ TEXTURE TOLERATED ADDITIONAL RECOMMENDATIONS: 1) Standing daily wt, as tolerated + Daily wts for HD 2) Monitor for continued tolerance to diet 3) HIGH protein snacks in b/w meals . .
--- NOTE | 2019-04-28 15:01 | NUR ---
CHARGE NURSE NOTE: Spoke with , notified him about abnormal ABG result. He said OK to discharge patient. ````````
[2019-04-28] MEDS ORDERED: NORVASC10 MG ORAL (15:17)
[2019-04-28] MEDS ORDERED: COLACE100 MG ORAL (15:17)
[2019-04-28] MEDS ORDERED: COREG25 MG ORAL (15:17)
[2019-04-28] MEDS ORDERED: ASPIRIN81 MG ORAL (15:17)
[2019-04-28] MEDS ORDERED: APRESOLINE50 MG ORAL (15:17)
[2019-04-28] MEDS ORDERED: LIPITOR10 MG ORAL (15:17)
[2019-04-28] MEDS ORDERED: NEURONTIN300 MG ORAL (15:17)
[2019-04-28] MEDS ORDERED: MONTELUKAST SOD10 MG ORAL (15:17)
[2019-04-28] MEDS ORDERED: SYNTHROID100 MCG ORAL (15:17)
[2019-04-28 15:23] VITALS: BP 159/78
[2019-04-28] MEDS: Montelukast 10mg tablet ORAL SCH (17:21)
--- NOTE | 2019-04-28 19:07 | NUR ---
NURSE NOTES: patient discharged to home with daughter. stable condition. no respiratory distress noted. no pain at this time. pharmacy delivered medications. portable Oxygen tank was delivered. removed IV and ID band. HD shunt intact. no bleeding. provide dc packet. checked and counted belongings with patient and obtained sign. escorted by ENDY harrington to the entrance
--- NOTE | 2019-04-28 21:25 | Pulmonology Progress Note ---
Assessment/Plan Assessment/Plan Pulmonary Progress Note HPI Patient is a 69 year old woman presenting with shortness of breath/cough ongoing for several days, patient has CKD, HTN, DM, CAD, Asthma, receives dialysis on Thursday and Thursday No current SOB, she denies any fever, no nausea, vomiting or diarrhea, has fatigue and malaise, no chest pain. Adequate PaO2 on RA, desaturated to 86% on walking, Home O2 ordered Ambulating well, no significant SOB at rest, s/p HD ABG noted Allergies: No Known Allergies Past Medical History: CKD on HD, HTN, DM, Asthma, previous CAD All Other Systems: negative except mentioned in HPI Physical Exam Vital Signs Noted General Appearance: no distress on RA Head: normocephalic, atraumatic Eyes: bilateral eye PERRL, bilateral eye EOMI ENT: moist mm Neck: no LN Respiratory: no retraction, no accessory muscle use, CTAB Cardiovascular: normal peripheral pulses, regular rate, rhythm, no JVD, no murmur, normal hS1/HS2 Gastrointestinal: normal bowel sounds, non tender, soft, no mass, no organomegaly, non-distended, no guarding, no hernia, no pulsatile mass, no rebound Genitourinary: no CVA tenderness Musculoskeletal: normal inspection - AV left arm Neurologic: oriented x3, responsive, hockey instructor III-XII nml as tested, motor strength/ tone normal, sensory intact Skin: no rash, no edema Impression: Respiratory distress- stable Pulmonary congestion ESRD (end stage renal disease) on HD Hypertension Diabetes CAD Plan: HD per Renal NC O2 PRN HHN PRN Monitor labs and adjust therapy keep negative dc planning, home O2 ordered Home HHN [place] close follow up for change in respiratory status impression, plan, and exam edited and reviewed in detail care discussed with RN Labs noted Chest X-Ray: no consolidation, no pneumothorax, other - pulmonary congestion VQ low probability Seen earlier Subjective ROS Limited/Unobtainable: No Allergies: Coded Allergies: No Known Allergies (Unverified , 05/12/17) Objective Last 24 Hour Vital Signs Date Time Temp Pulse Resp B/P (MAP) Pulse Ox O2 Delivery O2 Flow Rate FiO2 04/28/19 16:00 2.0 04/28/19 15:23 159/78 04/28/19 12:00 97.6 76 18 159/78 (105) 96 04/28/19 12:00 2.0 04/28/19 09:00 Nasal Cannula 2.0 04/28/19 08:37 71 143/74 04/28/19 08:37 71 143/74 04/28/19 08:00 98.8 71 18 143/74 (97) 96 04/28/19 08:00 2.0 04/28/19 07:50 95 Nasal Cannula 2.0 28 04/28/19 06:00 128/57 04/28/19 04:00 98.3 67 20 128/57 (80) 94 04/28/19 03:10 2.0 04/28/19 00:58 30 04/28/19 00:55 99 Bi-Pap 04/28/19 00:55 81 18 99 Facial 30 04/28/19 00:00 2.0 04/28/19 00:00 98.6 66 18 127/58 (81) 98 Intake and Output 04/27/19 04/28/19 19:00 07:00 Intake Total 230 ml Balance 230 ml Intake Oral 230 ml # Voids 1 1 Laboratory Tests 04/28/19 13:18: Arterial Blood pH 7.370, Arterial Blood Partial Pressure CO2 46.6H, Arterial Blood Partial Pressure O2 60.7L, Arterial Blood HCO3 26.3H, Arterial Blood Oxygen Saturation 91.1L, Arterial Blood Base Excess 0.7, Faheem Test Positive Brandon Herbert MD Apr 28, 2019 21:25
--- NOTE | 2019-04-29 09:07 | Discharge Summary ---
Discharge Summary Discharge Summary _ DATE OF ADMISSION: 04/18/2019 DATE OF DISCHARGE: 04/28/2019 DISCHARGED BY: Dr Daniel REASON FOR ADMISSION: 69 years old female with past medical history of end-stage renal disease, on dialysis, diabetes mellitus, hypertension, was seen in outpatient hemodialysis by her brake operator sheet metal an was found to have accelerated HTN. Patient was also complained of shortness of breath and chest discomfort. Patient was referred to emergency room for evaluation. Upon evaluation in emergency department blood pressure was elevated 188/68. Patient was dyspneic and was placed on BiPAP. Chest x-ray revealed moderate congestive heart failure. ABG demonstrated evidence of hypoxia and hypercapnia. Potassium 3.0. BUN 11, creatinine 2.6. Glucose 126. Stable liver parameters. Troponin - 0.03. EKG revealed sinus rhythm , no acute ischemic changes. WBC 3.7, hemoglobin 10.4, hematocrit 32.4. Patient subsequently admitted to monitored floor for further management. CONSULTANTS: pulmonary Dr. Ibarra ID specialist Dr. Martin brake operator sheet metal Dr. Falk md psychiatry/oncologist Dr. Daniels [facility]: Patient initially admitted to monitored floor. Patient was continued on BiPAP. Supplemental oxygen titrated to keep pulse oximetry above 92%. Patient was follow-up with ABG. Pulmonary toilet with bronchodilator provided. Venous duplex bilateral lower extremity revealed no evidence of acute DVT. VQ scan demonstrated low probability for pulmonary emboli. Echocardiogram revealed borderline normal systolic function and wall motion with left ventricular ejection fraction estimated to be 50%. Mild left ventricular hypertrophy. Aortic stenosis. Moderately elevated left atrial pressure grade 2. Mild to moderate mitral regurgitation. Moderate tricuspid regurgitation. Right ventricular systolic pressure of 56 consistent with moderate pulmonary hypertension. Repeated troponin was negative as well. Telemetry consistently demonstrated sinus rhythm. Hemodialysis with ultrafiltration provided as per brake operator sheet metal with close monitoring of volumes and cardiorenal parameters. Electrolytes corrected as needed. Blood pressure was managed with multiple antihypertensive medications, including hydralazine, beta-denisa , calcium channel denisa. Lisinopril was stopped due to cough. Blood pressure improved. Antiplatelet therapy with aspirin and statin continued. Lipid panel stable. DVT prophylaxis with heparin provided. Blood sugar was managed with long-acting insulin and sliding scale of short acting insulin before meals as needed. Hemoglobin A1c 7.1-near at goal. TSH within normal limits ; current dose of levothyroxine was continued. Supportive care provided. Follow-up chest x-ray revealed thickening of the interstitial markings, possibly due to interstitial edema and /or pneumonia. ID specialist followed. Patient started on empiric antibiotics /Rocephin and Zithromax for possible pneumonia. Patient was closely observed and monitored, Patient remained afebrile, no leukocytosis. Antibiotic subsequently stopped. Infectious disease specialist recommended to observe patient off antibiotics. Hemoglobin and hematocrit were closely monitored with goal to keep hemoglobin above 7. Patient was on Epogen. Anemia work-up revealed evidence of anemia of chronic disease with ferritin 638. Prior to discharge hemoglobin 9.8 , hematocrit 30.5, remained at baseline. Leukopenia was most likely reactive as per md psychiatry. On previous admission , hepatitis panel was negative, HIV test was nonreactive . WBC remained stable and trended up to 3.5 upon discharge. Abdominal ultrasound demonstrated hepatosplenomegaly. Medical renal disease. Small nonobstructive stone in the left kidney. Cholelithiasis. Patient was able to wean from BiPAP to oxygen via nasal cannula. Shortness of breath resolved. Home oxygen was arranged. Home health services were arranged. Patient will stable for discharge home with home health services. FINAL DIAGNOSES: Hypoxemic respiratory failure, requiring BiPAP -resolved Pulmonary edema -resolved End-stage renal disease, on hemodialysis CHF with diastolic dysfunction Hypertensive kidney disease Diabetic nephropathy with proteinuria Aortic stenosis Diabetes mellitus Coronary artery disease Anemia of chronic kidney disease Leukopenia Hepatosplenomegaly Cholelithiasis DISCHARGE MEDICATIONS: See Medication Reconciliation list. DISCHARGE INSTRUCTIONS: Patient was discharged home with home health services. Follow up with primary care provider in one week. I have been assigned to dictate discharge summary for this account. I was not involved in the patient's management. Kaitlin Durán NP Apr 29, 2019 09:06
== END 2019-04-28 18:49 | disposition home health service (06) | DRG 193 ==
LOC: EMR 13:30 → EDBEDREQ 13:34 → 2W 13:52 → EDBEDREQ 14:33 → EDBEDREQSVC 14:33 → EDBEDREQ 15:14 → 4E 04-21 17:50
PROC: 5A09357 Assistance with Respiratory Ventilation, Less than 24 Consecutive Hours, Continuous Positive Airway Pressure (ICD-10-PCS; principal; 2019-04-18)
PROC: 5A1D70Z Performance of Urinary Filtration, Intermittent, Less than 6 Hours Per Day (ICD-10-PCS; 2019-04-28)
DX: J18.9 Pneumonia, unspecified organism (principal); N18.6 End stage renal disease; J96.91 Respiratory failure, unspecified with hypoxia; I13.2 Hypertensive heart and chronic kidney disease with heart failure and with stage 5 chronic kidney disease, or end stage renal disease; I50.30 Unspecified diastolic (congestive) heart failure; E87.6 Hypokalemia; E11.22 Type 2 diabetes mellitus with diabetic chronic kidney disease; N18.9 Chronic kidney disease, unspecified; E78.5 Hyperlipidemia, unspecified; K21.9 Gastro-esophageal reflux disease without esophagitis; G62.9 Polyneuropathy, unspecified; Z99.2 Dependence on renal dialysis; E03.9 Hypothyroidism, unspecified; I35.0 Nonrheumatic aortic (valve) stenosis; I25.10 Atherosclerotic heart disease of native coronary artery without angina pectoris; D63.8 Anemia in other chronic diseases classified elsewhere; E11.21 Type 2 diabetes mellitus with diabetic nephropathy; R80.8 Other proteinuria
CPT/HCPCS: 36415; 36600; 71045; 76700; 78579; 78580; 80053; 80061; 82550; 82553; 82607; 82728; 82746; 82803; 82962; 82977; 83036; 83540; 83550; 83735; 83880; 84100; 84439; 84443; 84481; 84484; 84550; 85007; 85025; 86140; 87081; 87340; 93005; 93306; 93970; 94640; 94660; 94664; 99291; A9503; J1815; J7620; J8499; S5561

== ENCOUNTER 2019-05-27 12:44 | Inpatient (IN) | payer MEDICARE, MEDICAID ==
[~2019-05-27] VITALS: Ht 160 cm; Wt 75.0 kg
[~2019-05-27 12:44] MED LIST changes: +APRESOLINE50 MG ORAL; +ASPIRIN81 MG ORAL; +COLACE100 MG ORAL; +COREG25 MG ORAL; +LIPITOR10 MG ORAL; +MONTELUKAST SOD10 MG ORAL; +NORVASC10 MG ORAL; +SYNTHROID100 MCG ORAL; +ZETIA10 MG ORAL
[2019-05-27] MEDS ORDERED: Pantoprazole Inj IV ONE (13:15)
[2019-05-27] MEDS ORDERED: Morphine Sulfate 2mg/ml Inj(IV/IM USE ONLY) IVP ONE (13:15)
--- NOTE | 2019-05-27 13:42 | Diagnostic Imaging Report ---
Indication: Abdominal pain Technique: Supine view of the abdomen Comparison: 10/06/2017 Findings: Bowel gas pattern is unremarkable. No gaseous distention of large or small bowel. No masses or unusual calcifications. No significant interim change Impression: Negative
[2019-05-27 13:48] LABS: HEMATOCRIT 36.5 % (37.0-47.0); MEAN CORPUSCULAR VOLUME 93 FL (80-99); PLATELET COUNT 213 K/UL (150-450); RED BLOOD COUNT 3.91 M/UL (4.20-5.40); RED CELL DISTRIBUTION WIDTH 14.9 % (11.6-14.8); WHITE BLOOD COUNT 3.1 K/UL (4.8-10.8)
[2019-05-27 13:50] VITALS: BP 143/85
[2019-05-27 13:54] LABS: INR 1.1 (0.9-1.1)
--- NOTE | 2019-05-27 13:55 | Emergency Room Report ---
History of Present Illness General Chief Complaint: Gastrointestinal Bleed Source: Patient Present Illness HPI Patient presents with black tarry stools which began on Thursday. She has a history of GI bleed in the past and received transfusions in the past. Feels weak and dizzy. She was able to get dialysis today and came after dialysis was performed. Some epigastric discomfort. Initially reported /10, then states . Poorly described. Not radiating. Patient still makes urine and denies dysuria. No fevers, chills, sore throat, chest pain, palpitations, nausea, vomiting, diarrhea, shortness of breath, joint pain, rashes, depression, anxiety, visual changes, dizziness, headache. The patient was admitted in April with these discharge diagnoses: Hypoxemic respiratory failure, requiring BiPAP -resolved Pulmonary edema -resolved End-stage renal disease, on hemodialysis CHF with diastolic dysfunction Hypertensive kidney disease Diabetic nephropathy with proteinuria Aortic stenosis Diabetes mellitus Coronary artery disease Anemia of chronic kidney disease Leukopenia Hepatosplenomegaly Cholelithiasis Allergies: Coded Allergies: No Known Allergies (Unverified , 05/12/17) Patient History Past Medical History: see triage record, old chart reviewed Past Surgical History: other - fistula Social History: Denies: smoking, alcohol use, drug use Social History Narrative From home Reviewed Nursing Documentation: PMH: Agreed; PSxH: Agreed Nursing Documentation-PMH Past Medical History: No History, Except For Hx Cardiac Problems: Yes Hx Hypertension: Yes Hx Pacemaker: No Hx Asthma: Yes Hx COPD: No Hx Diabetes: Yes Hx Cancer: No Hx Gastrointestinal Problems: No Hx Dialysis: Yes - MWF Hx Neurological Problems: No Hx Transient Ischemic Attacks: Yes - ACUTE ISCHEMIC HEART DISEASE Hx Dementia: No Hx Alzheimer's Disease: No Hx Parkinson's Disease: No Hx Meningitis: No Hx Encephalitis: No Hx Seizures: No Hx Epilepsy: No Hx Multiple Sclerosis: No Hx Cerebral Palsy: No Hx Amyotrophic Lat Sclerosis: No Hx Guillian-Kingston Syndrome: No Hx Paralysis: No Hx Peripheral Neuropathy: No Hx Spinal Cord Injury: No Hx Head Trauma: No Hx Traumatic Brain Injury: No Hx Memory Loss: No Hx Concentration Difficulty: No Hx Speech Problem: No Hx Tremors: No Hx Vertigo: Yes Hx Dizziness: No Hx Syncope: No Hx Headaches: No Hx Aphasia: No Hx Dysphasia: No Hx Numbness: No Hx Weakness: Yes - MUSCLE WEAKNESS Hx Fatigue: No Hx Neurologic Surgery: No Hx Brain Shunt: No Review of Systems All Other Systems: negative except mentioned in HPI Physical Exam Vital Signs Date Time Temp Pulse Resp B/P (MAP) Pulse Ox O2 Delivery O2 Flow Rate FiO2 05/27/19 12:55 98.1 70 18 128/59 (82) 93 Room Air Sp02 EP Interpretation: reviewed, abnormal - Interpreted as slightly low by me General Appearance: no apparent distress, alert, GCS 15, non-toxic, Chronically Ill Head: normocephalic Eyes: bilateral eye PERRL, bilateral eye conjunctivae pale ENT: moist mucus membranes Neck: full range of motion, supple Respiratory: chest non-tender, lungs clear Cardiovascular #1: regular rate, rhythm, no edema Cardiovascular #2: 2+ radial (L) - Fistula left upper arm with thrill Gastrointestinal: normal bowel sounds, non-distended, no guarding, no rebound, tenderness - Epigastric Rectal: heme positive stool - Melena Genitourinary: no CVA tenderness Musculoskeletal: back normal, digits/nails normal, gait/station normal, normal range of motion, no calf tenderness Neurologic: alert, oriented x3, grossly normal Psychiatric: mood/affect normal Skin: warm/dry, pallor, other Medical Decision Making Diagnostic Impression: Primary Impression: Gastrointestinal hemorrhage Qualified Codes: K92.1 - Melena Additional Impressions: ESRD on dialysis Cardiomegaly ER Course Patient presents with melanotic stools. Differential includes ulcer, gastritis , varicies amongst others. Evaluation with EKG, chest x-ray and labs. IV established but due to dialysis and stable vital signs no IV hydration ordered. Protonix, Zofran and morphine ordered. With extreme pallor, might need emergent transfusion though not tachycardic. EKG without injury. Chest x-ray with cardiomegaly. No congestive heart failure. Anemia. Renal insufficiency. Urine not obtained in the emergency department. H/H not indicating emergent transfusion. Examined by Dr. Falk in ED. Pain resolved. Patient needing admission for Possible endoscopy and repeated hemoglobin and hematocrit determinations. Admit telemetry Dr. Daniel. Laboratory Tests Test 05/27/19 13:20 White Blood Count 3.1 K/UL (4.8-10.8) L Red Blood Count 3.91 M/UL (4.20-5.40) L Hemoglobin 12.0 G/DL (12.0-16.0) Hematocrit 36.5 % (37.0-47.0) L Mean Corpuscular Volume 93 FL (80-99) Mean Corpuscular Hemoglobin 30.6 PG (27.0-31.0) Mean Corpuscular Hemoglobin Concent 32.8 G/DL (32.0-36.0) Red Cell Distribution Width 14.9 % (11.6-14.8) H Platelet Count 213 K/UL (150-450) Mean Platelet Volume 5.7 FL (6.5-10.1) L Neutrophils (%) (Auto) % (45.0-75.0) Lymphocytes (%) (Auto) % (20.0-45.0) Monocytes (%) (Auto) % (1.0-10.0) Eosinophils (%) (Auto) % (0.0-3.0) Basophils (%) (Auto) % (0.0-2.0) Differential Total Cells Counted 100 Neutrophils % (Manual) 61 % (45-75) Lymphocytes % (Manual) 20 % (20-45) Monocytes % (Manual) 15 % (1-10) H Eosinophils % (Manual) 4 % (0-3) H Basophils % (Manual) 0 % (0-2) Band Neutrophils 0 % (0-8) Platelet Estimate Adequate Platelet Morphology Normal Anisocytosis 1+ Prothrombin Time 11.4 SEC (9.30-11.50) Prothrombin Time INR 1.1 (0.9-1.1) PTT 30 SEC (23-33) Sodium Level 140 MMOL/L (136-145) Potassium Level 3.4 MMOL/L (3.5-5.1) L Chloride Level 94 MMOL/L (98-107) L Carbon Dioxide Level 39 MMOL/L (21-32) H Anion Gap 7 mmol/L (5-15) Blood Urea Nitrogen 21 mg/dL (7-18) H Creatinine 2.7 MG/DL (0.55-1.30) H Estimate Glomerular Filtration Rate 17.4 mL/min (>60) Glucose Level 147 MG/DL (74-106) H Calcium Level 8.1 MG/DL (8.5-10.1) L Total Bilirubin 0.6 MG/DL (0.2-1.0) Aspartate Amino Transferase (AST) 16 U/L (15-37) Alanine Aminotransferase (ALT) 9 U/L (12-78) L Alkaline Phosphatase 106 U/L (46-116) Troponin I 0.017 ng/mL (0.000-0.056) Total Protein 8.0 G/DL (6.4-8.2) Albumin 3.7 G/DL (3.4-5.0) Globulin 4.3 g/dL Albumin/Globulin Ratio 0.9 (1.0-2.7) L Lipase 141 U/L (73-393) EKG Diagnostic Results Rate: normal Rhythm: NSR ST Segments: no acute changes Rhythm Strip Diag. Results EP Interpretation: yes Rhythm: NSR, no PVC's, no ectopy Chest X-Ray Diagnostic Results Chest X-Ray Diagnostic Results : Chest X-Ray Ordered: Yes # of Views/Limited/Complete: 1 View Indication: Other EP Interpretation: Yes Interpretation: no effusion, no pneumothorax, other - Cardiomegaly Impression: Other Electronically Signed by: Electronically signed by Brandon Moseley MD Last Vital Signs Date Time Temp Pulse Resp B/P (MAP) Pulse Ox O2 Delivery O2 Flow Rate FiO2 05/27/19 21:11 113/55 05/27/19 21:11 72 05/27/19 20:41 97.4 16 98 Room Air 05/27/19 17:59 2.0 05/27/19 13:50 93 Status: improved Disposition: ADMITTED INPATIENT Condition: Serious Referrals: NON PHYSICIAN (PCP) Brandon Moseley MD May 27, 2019 13:55
--- NOTE | 2019-05-27 14:00 | NUR ---
ED Nurse Note: Patient walked into ED having experiencing epigastric pain after dialysis today. Primarily Turkmen speaking, ambulatory and A/Ox4. Reports 5/10 on pain scale. Patient reports having black tarry stool since Thursday. IV established on RAC 22G, patent and asymptomatic. Connected to taxation consultant. VSS. Will continue plan of care.
[2019-05-27 14:17] LABS: ANION GAP 7 mmol/L (5-15); BLOOD UREA NITROGEN 21 mg/dL (7-18); CALCIUM 8.1 MG/DL (8.5-10.1); CARBON DIOXIDE 39 MMOL/L (21-32); CHLORIDE 94 MMOL/L (98-107); CREATININE 2.7 MG/DL (0.55-1.30); POTASSIUM 3.4 MMOL/L (3.5-5.1); SODIUM 140 MMOL/L (136-145)
[2019-05-27 14:19] LABS: ALANINE AMINOTRANSFERASE 9 U/L (12-78); ALBUMIN 3.7 G/DL (3.4-5.0); ALBUMIN/GLOBULIN RATIO 0.9 (1.0-2.7); ALKALINE PHOSPHATASE 106 U/L (46-116); ASPARTATE AMINO TRANSFERASE 16 U/L (15-37); BILIRUBIN,TOTAL 0.6 MG/DL (0.2-1.0)
--- NOTE | 2019-05-27 14:25 | Diagnostic Imaging Report ---
Indication: Chest pain Technique: One view of the chest Comparison: 04/25/2019 Findings: The heart remains enlarged. There are borderline interstitial congestive changes, improved significantly since the previous study. No definite effusions Impression: Cardiomegaly Borderline interstitial congestion-correlate clinically. This is improved since prior study of 04/25/2019
--- NOTE | 2019-05-27 14:40 | NUR ---
ED Nurse Note: Blood collected and sent to lab. Waiting for patient to void
--- NOTE | 2019-05-27 14:57 | Consultation ---
Consult Note Consult Note 69Y old- under mycare for dialysis related issues came to ER for Melena and epigastric pain for past 2-3 days being admitted to Tele Seen in ER room #1 examined data reviewed discussed with Dr Moseley Assessment/Plan GI bleed likely upper- present with melena ESRD h/o Pulm Edema DM HTN Anemia B12 and Iron def CAD . Plan NPO GI Eval Protonix CXR BP meds- HD as needed Previously 2D Echo Ej Fx 50 % PACO: Hepatosplenomegaly. Question of medical renal disease. Small nonobstructive stone in the left kidney suspected. Cholelithiasis Francis Falk MD May 27, 2019 14:57
[2019-05-27] MEDS ORDERED: HydrALAZINE 25mg tab ORAL PRN (15:15)
[2019-05-27 16:12] LABS: APPEARANCE,URINE CLOUDY; BILIRUBIN, URINE 1+ (NEGATIVE); COLOR,URINE AMBER; GLUCOSE, URINE (UA) 1+ (NEGATIVE); KETONES,URINE NEGATIVE (NEGATIVE); LEUKOCYTE ESTERASE ,URINE 1+ (NEGATIVE); NITRITE,URINE NEGATIVE (NEGATIVE); PH,URINE 5 (4.5-8.0); PROTEIN,URINE 4+ (NEGATIVE); UROBILINOGEN,URINE NORMAL MG/DL (0.0-1.0)
[2019-05-27] MEDS ORDERED: D5NS 1,000 ML IV SCH (16:30)
--- NOTE | 2019-05-27 17:01 | NUR ---
HAND-OFF: Report given to SIDNEY Lawson on 2E.
--- NOTE | 2019-05-27 17:36 | NUR ---
NURSE NOTES: Received report from Kerry ED RN. PT brought to 2E room 214-2 via gurney, PT is ambulatory, A/Ox4, Yoruba speaking, talkative, no complaints of pain at this time, no nausea, no apparent distress, continued pt on 2L NC and asked Dr. Daniel for order for oxygen, vitals obtain and assessment done, see flowsheet, pt states she does not know her home medications, but can ask her daughter to bring medications tomorrow to have them reviewed by staff, bed in lowest position, call light within reach.
[2019-05-27 17:56] VITALS: BP 150/67
--- NOTE | 2019-05-27 18:28 | General Progress Note ---
Assessment/Plan Assessment/Plan: Assessment - Dark stools, ? GI Bleed (also taking Fe) - h/o gastritis (10/19) - h/o colon adenoma x 2 (10/2018) - ERSD /HD Recommendations - clears - PPI - follow CBC - EGD next week if OB (+) Thank you Ramakrishna Leonard MD Subjective Allergies: Coded Allergies: No Known Allergies (Unverified , 05/12/17) Objective Last 24 Hour Vital Signs Date Time Temp Pulse Resp B/P (MAP) Pulse Ox O2 Delivery O2 Flow Rate FiO2 05/27/19 17:59 Nasal Cannula 2.0 05/27/19 17:56 97.5 66 16 150/67 (94) 100 05/27/19 14:29 98.1 05/27/19 13:50 68 15 Room Air 93 05/27/19 13:50 97.8 68 15 143/85 93 Room Air 05/27/19 12:55 98.1 70 18 128/59 (82) 93 Room Air Laboratory Tests 05/27/19 13:20: White Blood Count 3.1L, Red Blood Count 3.91L, Hemoglobin 12.0, Hematocrit 36.5L , Mean Corpuscular Volume 93, Mean Corpuscular Hemoglobin 30.6, Mean Corpuscular Hemoglobin Concent 32.8, Red Cell Distribution Width 14.9H, Platelet Count 213, Mean Platelet Volume 5.7L, Neutrophils (%) (Auto) , Lymphocytes (%) (Auto) , Monocytes (%) (Auto) , Eosinophils (%) (Auto) , Basophils (%) (Auto) , Differential Total Cells Counted 100, Neutrophils % ( Manual) 61, Lymphocytes % (Manual) 20, Monocytes % (Manual) 15H, Eosinophils % ( Manual) 4H, Basophils % (Manual) 0, Band Neutrophils 0, Platelet Estimate Adequate, Platelet Morphology Normal, Anisocytosis 1+, Prothrombin Time 11.4, Prothromb Time International Ratio 1.1, Activated Partial Thromboplast Time 30, Urine Color Thao, Urine Appearance Cloudy, Urine pH 5, Urine Specific Horatio 1.020, Urine Protein 4+H, Urine Glucose (UA) 1+H, Urine Ketones Negative, Urine Blood 2+H, Urine Nitrite Negative, Urine Bilirubin 1+H, Urine Ictotest Negative , Urine Urobilinogen Normal, Urine Leukocyte Esterase 1+H, Urine RBC 2-4H, Urine WBC 10-15H, Urine Squamous Epithelial Cells ManyH, Urine Bacteria ManyH, Sodium Level 140, Potassium Level 3.4L, Chloride Level 94L, Carbon Dioxide Level 39H, Anion Gap 7, Blood Urea Nitrogen 21H, Creatinine 2.7H, Estimat Glomerular Filtration Rate 17.4, Glucose Level 147H, Calcium Level 8.1L, Total Bilirubin 0.6, Aspartate Amino Transf (AST/SGOT) 16, Alanine Aminotransferase ( ALT/SGPT) 9L, Alkaline Phosphatase 106, Troponin I 0.017, Total Protein 8.0, Albumin 3.7, Globulin 4.3, Albumin/Globulin Ratio 0.9L, Lipase 141 Height (Feet): 5 Height (Inches): 3.00 Weight (Pounds): 140 Ramakrishna Leonard MD May 27, 2019 18:28
[2019-05-27] MEDS: Docusate 100mg cap ORAL SCH (18:29)
[2019-05-27] MEDS: Sucralfate 1gm tab ORAL SCH ×2 (18:29→21:10)
[2019-05-27] MEDS ORDERED: Sorbitol Solution UD 30ml ORAL SCH (18:30)
--- NOTE | 2019-05-27 19:17 | NUR ---
HAND-OFF: Report given to SIDNEY Gil.
--- NOTE | 2019-05-27 19:18 | NUR ---
NURSE NOTES: Received patient from SIDNEY Lawson. Patient resting in bed comfortably. No signs of distress or pain noted. AOx4, on 2L NC, patient is alert and talkative, Turkish speaking, and able to make needs known. IV site checked, intact and patent, no signs of infiltration, erythema, or bleeding noted. Bed in lowest position, brakes on, siderails up x2, and call light within reach. Will continue with plan of care.
[2019-05-27 20:00] VITALS: BP 113/55
[2019-05-27] MEDS: Pantoprazole Inj IVP SCH (21:10)
[2019-05-27] MEDS: HydrALAZINE 50mg tab ORAL SCH (21:11)
[2019-05-27] MEDS: Carvedilol 25mg Tab ORAL SCH (21:11)
--- NOTE | 2019-05-27 23:30 | Consultation ---
DATE OF CONSULTATION: 05/27/2019 CHIEF COMPLAINT: I was asked to see this patient by Dr. Makenna Dnaiel for evaluation of gastrointestinal bleeding. HISTORY OF PRESENT ILLNESS: The patient is a pleasant 69-year-old woman with multiple medical problems, was noted to have dark stools for the past four days or so. She had some loose stools for one day and some dizziness and therefore she was sent to the emergency room for evaluation of her dark stools and possible GI bleeding. Of note is that in October of this year, she did come to this hospital and was admitted. At that time, she underwent endoscopy and colonoscopy. Endoscopy showing gastritis and colonoscopy showed two polyps and some hemorrhoids. The polyps were removed showing tubular adenoma. The patient does take iron on a daily basis; however, on her medication list. She is unsure of her medications but on the computer that it contains ferrous sulfate. PAST MEDICAL HISTORY: History of end-stage renal disease on hemodialysis, hyperlipidemia, history of constipation, anemia of chronic disease, chronic pain syndrome, non-insulin dependent diabetes, hypothyroidism, gastroesophageal reflux disease, gastritis, hypertension. PAST SURGICAL HISTORY: Status post , status post hemodialysis access. FAMILY HISTORY: Positive for diabetes and hypertension. ALLERGIES: None. SOCIAL HISTORY: The patient has a remote history of alcohol use but no smoking. REVIEW OF SYSTEMS: Otherwise negative. PHYSICAL EXAMINATION: GENERAL: The patient is a pleasant woman, seen in her room. HEENT: Normocephalic and atraumatic. Sclerae anicteric. Oropharynx clear. NECK: Supple. CHEST: Clear to auscultation. CARDIOVASCULAR: Revealed a regular rate. ABDOMEN: Soft. EXTREMITIES: Revealed no edema. LABORATORY DATA: Noted. ASSESSMENT: This patient presents with dark stools which typically would be consistent with upper gastrointestinal bleeding. On the other hand, the patient also takes iron which is the cause of the dark stools, but no bleeding. I will therefore first check the stools to see the occult blood positive. If so, the patient may need another endoscopy to evaluate the upper GI tract. She does take aspirin which can be source of this problem. The patient should be placed on proton pump inhibitor in the meantime. Her CBC will be followed. RECOMMENDATIONS: 1. Check stool occult blood. 2. Proton pump inhibitor. 3. Clear liquid diet. 4. Possible endoscopy if bleeding confirmed. Thank you for asking me to participate in the care of this patient. Ramakrishna Leonard M.D. DR: Silvia JOB#: [id number] CC:
[2019-05-28] VITALS: BP 116/62
[2019-05-28 04:00] VITALS: BP 114/72
[2019-05-28] MEDS: HydrALAZINE 50mg tab ORAL SCH ×3 (06:43→21:35)
--- NOTE | 2019-05-28 07:05 | NUR ---
HAND-OFF: Report given to SIDNEY Colvin. Plan of care endorsed.
[2019-05-28 07:38] LABS: HEMATOCRIT 31.4 % (37.0-47.0); HEMOGLOBIN 10.7 G/DL (12.0-16.0); MEAN CORPUSCULAR VOLUME 92 FL (80-99); PLATELET COUNT 180 K/UL (150-450); RED BLOOD COUNT 3.41 M/UL (4.20-5.40); RED CELL DISTRIBUTION WIDTH 13.9 % (11.6-14.8); WHITE BLOOD COUNT 2.9 K/UL (4.8-10.8)
[2019-05-28 08:00] VITALS: BP 165/67
--- NOTE | 2019-05-28 08:00 | NUR ---
NURSE NOTES: Patient AOx4 with no complaints at this time. No s/sx of distress. RR even and unlabored on 2L NC. Patient eating breakfast in bed. Bed low and locked. Will continue to monitor.
[2019-05-28 08:11] LABS: ALANINE AMINOTRANSFERASE 8 U/L (12-78); ALBUMIN 3.2 G/DL (3.4-5.0); ALBUMIN/GLOBULIN RATIO 0.9 (1.0-2.7); ALKALINE PHOSPHATASE 79 U/L (46-116); ANION GAP 6 mmol/L (5-15); ASPARTATE AMINO TRANSFERASE 12 U/L (15-37); BILIRUBIN,TOTAL 0.6 MG/DL (0.2-1.0); BLOOD UREA NITROGEN 29 mg/dL (7-18); CALCIUM 6.9 MG/DL (8.5-10.1); CARBON DIOXIDE 35 MMOL/L (21-32); CHLORIDE 95 MMOL/L (98-107); CHOLESTEROL 131 MG/DL (< 200); FERRITIN 692 NG/ML (8-388); GAMMA GLUTAMYL TRANSPEPTIDASE 33 U/L (5-85); HDL CHOLESTEROL 36 MG/DL (40-60); PHOSPHORUS 4.8 MG/DL (2.5-4.9); POTASSIUM 3.8 MMOL/L (3.5-5.1); SODIUM 136 MMOL/L (136-145); TRIGLYCERIDES 243 MG/DL (30-150)
[2019-05-28 08:32] LABS: % IRON SATURATION 26 % (15-50); IRON 49 ug/dL (50-175); TOTAL IRON BINDING CAPACITY 192 ug/dL (250-450)
[2019-05-28] MEDS: Pantoprazole Inj IVP SCH ×2 (09:09→21:38)
[2019-05-28] MEDS: Carvedilol 25mg Tab ORAL SCH ×2 (09:09→21:34)
[2019-05-28] MEDS: Sucralfate 1gm tab ORAL SCH ×4 (09:09→21:34)
[2019-05-28] MEDS: Docusate 100mg cap ORAL SCH ×3 (09:13→16:58)
--- NOTE | 2019-05-28 09:22 | General Progress Note ---
Assessment/Plan Problem List: (1) ESRD on dialysis ICD Codes: N18.6 - End stage renal disease; Z99.2 - Dependence on renal dialysis SNOMED: 371493502 (2) Gastrointestinal hemorrhage ICD Codes: K92.2 - Gastrointestinal hemorrhage, unspecified SNOMED: 13305863 Qualifiers: Qualified Codes: K92.1 - Melena (3) Diabetic nephropathy with proteinuria ICD Codes: E11.21 - Type 2 diabetes mellitus with diabetic nephropathy SNOMED: 78826282, 831842021 Assessment/Plan: fu stool ob fu H&H ppi possible GI procedure this week Subjective Allergies: Coded Allergies: No Known Allergies (Unverified , 05/12/17) Objective Last 24 Hour Vital Signs Date Time Temp Pulse Resp B/P (MAP) Pulse Ox O2 Delivery O2 Flow Rate FiO2 05/28/19 09:09 70 165/67 05/28/19 09:09 70 165/67 05/28/19 08:27 Nasal Cannula 2.0 05/28/19 08:00 97.8 70 18 165/67 (99) 100 05/28/19 06:43 149/55 05/28/19 04:00 68 05/28/19 04:00 98.1 79 18 114/72 (86) 98 05/28/19 00:00 98.4 82 18 116/62 (80) 99 05/28/19 00:00 70 05/27/19 21:11 113/55 05/27/19 21:11 72 113/55 05/27/19 21:00 Nasal Cannula 2.0 05/27/19 20:41 97.4 78 16 120/80 98 Room Air 78 05/27/19 20:00 98.1 72 18 113/55 (74) 100 05/27/19 20:00 70 05/27/19 17:59 Nasal Cannula 2.0 05/27/19 17:56 97.5 66 16 150/67 (94) 100 05/27/19 14:29 98.1 05/27/19 13:50 68 15 Room Air 93 05/27/19 13:50 97.8 68 15 143/85 93 Room Air 05/27/19 12:55 98.1 70 18 128/59 (82) 93 Room Air Intake and Output 05/27/19 05/28/19 19:00 07:00 Intake Total 20 ml 840 ml Output Total 20 ml Balance 0 ml 840 ml Intake Oral 240 ml IV Total 20 ml 600 ml Other 0 ml Output Urine Total 20 ml # Voids 1 1 # Bowel Movements 1 Laboratory Tests 05/27/19 13:20: White Blood Count 3.1L, Red Blood Count 3.91L, Hemoglobin 12.0, Hematocrit 36.5L , Mean Corpuscular Volume 93, Mean Corpuscular Hemoglobin 30.6, Mean Corpuscular Hemoglobin Concent 32.8, Red Cell Distribution Width 14.9H, Platelet Count 213, Mean Platelet Volume 5.7L, Neutrophils (%) (Auto) , Lymphocytes (%) (Auto) , Monocytes (%) (Auto) , Eosinophils (%) (Auto) , Basophils (%) (Auto) , Differential Total Cells Counted 100, Neutrophils % ( Manual) 61, Lymphocytes % (Manual) 20, Monocytes % (Manual) 15H, Eosinophils % ( Manual) 4H, Basophils % (Manual) 0, Band Neutrophils 0, Platelet Estimate Adequate, Platelet Morphology Normal, Anisocytosis 1+, Prothrombin Time 11.4, Prothromb Time International Ratio 1.1, Activated Partial Thromboplast Time 30, Urine Color Thao, Urine Appearance Cloudy, Urine pH 5, Urine Specific [place] 1.020, Urine Protein 4+H, Urine Glucose (UA) 1+H, Urine Ketones Negative, Urine Blood 2+H, Urine Nitrite Negative, Urine Bilirubin 1+H, Urine Ictotest Negative , Urine Urobilinogen Normal, Urine Leukocyte Esterase 1+H, Urine RBC 2-4H, Urine WBC 10-15H, Urine Squamous Epithelial Cells ManyH, Urine Bacteria ManyH, Sodium Level 140, Potassium Level 3.4L, Chloride Level 94L, Carbon Dioxide Level 39H, Anion Gap 7, Blood Urea Nitrogen 21H, Creatinine 2.7H, Estimat Glomerular Filtration Rate 17.4, Glucose Level 147H, Calcium Level 8.1L, Total Bilirubin 0.6, Aspartate Amino Transf (AST/SGOT) 16, Alanine Aminotransferase ( ALT/SGPT) 9L, Alkaline Phosphatase 106, Troponin I 0.017, Total Protein 8.0, Albumin 3.7, Globulin 4.3, Albumin/Globulin Ratio 0.9L, Lipase 141 05/28/19 03:45: Stool Occult Blood [Pending] 05/28/19 07:08: White Blood Count 2.9L, Red Blood Count 3.41L, Hemoglobin 10.7L, Hematocrit 31.4L, Mean Corpuscular Volume 92, Mean Corpuscular Hemoglobin 31.4H, Mean Corpuscular Hemoglobin Concent 34.1, Red Cell Distribution Width 13.9, Platelet Count 180, Mean Platelet Volume 6.3L, Neutrophils (%) (Auto) , Lymphocytes (%) ( Auto) , Monocytes (%) (Auto) , Eosinophils (%) (Auto) , Basophils (%) (Auto) , Neutrophils % (Manual) [Pending], Lymphocytes % (Manual) [Pending], Platelet Estimate [Pending], Platelet Morphology [Pending], Sodium Level 136, Potassium Level 3.8, Chloride Level 95L, Carbon Dioxide Level 35H, Anion Gap 6, Blood Urea Nitrogen 29H, Creatinine 4.0H, Estimat Glomerular Filtration Rate 11.1, Glucose Level 203H, Calcium Level 6.9L, Total Bilirubin 0.6, Aspartate Amino Transf (AST/SGOT) 12L, Alanine Aminotransferase (ALT/SGPT) 8L, Alkaline Phosphatase 79, Troponin I 0.027, Total Protein 6.9, Albumin 3.2L, Globulin 3.7 , Albumin/Globulin Ratio 0.9L, Hemoglobin A1c 6.1H, Phosphorus Level 4.8, Magnesium Level 1.9, Iron Level 49L, Total Iron Binding Capacity 192L, Percent Iron Saturation 26, Unsaturated Iron Binding 143, Ferritin 692H, Gamma Glutamyl Transpeptidase 33, C-Reactive Protein, Quantitative < 0.4, Pro-B-Type Natriuretic Peptide 89270W, Triglycerides Level 243H, Cholesterol Level 131, LDL Cholesterol 59, HDL Cholesterol 36L, Cholesterol/HDL Ratio 3.6, Vitamin B12 Level [Pending], Folate 13.7, Thyroid Stimulating Hormone (TSH) 3.732 Height (Feet): 5 Height (Inches): 3.00 Weight (Pounds): 140 General Appearance: no apparent distress EENT: normal ENT inspection Neck: supple Cardiovascular: normal rate Respiratory/Chest: decreased breath sounds Abdomen: normal bowel sounds, non tender, soft Extremities: non-tender Lito Cervantes MD May 28, 2019 09:22
[2019-05-28] MEDS ORDERED: NOVOLIN R100 UNIT/1 SUBQ (10:24)
[2019-05-28] MEDS ORDERED: FUROSEMIDE20 M1 ORAL (10:24)
[2019-05-28] MEDS ORDERED: CALCIUM ACETAT667 M1 PO ×2 (10:24)
[2019-05-28] MEDS ORDERED: ADALAT20 MG ORAL (10:24)
[2019-05-28] MEDS ORDERED: ISOSORBIDE MONO60 M1 PO (10:24)
[2019-05-28 11:41] VITALS: BP 100/58
--- NOTE | 2019-05-28 12:13 | Nephrology Progress Note ---
Assessment/Plan Problem List: (1) ESRD on dialysis (2) Gastrointestinal hemorrhage (3) Anemia in chronic kidney disease (CKD) Assessment GI bleed likely upper- present with melena ESRD h/o Pulm Edema DM HTN Anemia B12 and Iron def CAD . Plan start PO GI Eval Protonix , Carafate CXR BP meds- adjust HD as needed Previously 2D Echo Ej Fx 50 % PACO: Hepatosplenomegaly. Question of medical renal disease. Small nonobstructive stone in the left kidney suspected. Cholelithiasis Subjective ROS Limited/Unobtainable: No Constitutional: Reports: malaise Objective Objective Last 24 Hour Vital Signs Date Time Temp Pulse Resp B/P (MAP) Pulse Ox O2 Delivery O2 Flow Rate FiO2 05/28/19 11:41 98.3 67 18 100/58 (72) 100 05/28/19 09:09 70 165/67 05/28/19 09:09 70 165/67 05/28/19 08:27 Nasal Cannula 2.0 05/28/19 08:00 70 05/28/19 08:00 97.8 70 18 165/67 (99) 100 05/28/19 06:43 149/55 05/28/19 04:00 68 05/28/19 04:00 98.1 79 18 114/72 (86) 98 05/28/19 00:00 98.4 82 18 116/62 (80) 99 05/28/19 00:00 70 05/27/19 21:11 113/55 05/27/19 21:11 72 113/55 05/27/19 21:00 Nasal Cannula 2.0 05/27/19 20:41 97.4 78 16 120/80 98 Room Air 78 05/27/19 20:00 98.1 72 18 113/55 (74) 100 05/27/19 20:00 70 05/27/19 17:59 Nasal Cannula 2.0 05/27/19 17:56 97.5 66 16 150/67 (94) 100 05/27/19 14:29 98.1 05/27/19 13:50 68 15 Room Air 93 05/27/19 13:50 97.8 68 15 143/85 93 Room Air 05/27/19 12:55 98.1 70 18 128/59 (82) 93 Room Air Intake and Output 05/27/19 05/28/19 19:00 07:00 Intake Total 20 ml 840 ml Output Total 20 ml Balance 0 ml 840 ml Intake Oral 240 ml IV Total 20 ml 600 ml Other 0 ml Output Urine Total 20 ml # Voids 1 1 # Bowel Movements 1 Laboratory Tests 05/27/19 13:20: White Blood Count 3.1L, Red Blood Count 3.91L, Hemoglobin 12.0, Hematocrit 36.5L , Mean Corpuscular Volume 93, Mean Corpuscular Hemoglobin 30.6, Mean Corpuscular Hemoglobin Concent 32.8, Red Cell Distribution Width 14.9H, Platelet Count 213, Mean Platelet Volume 5.7L, Neutrophils (%) (Auto) , Lymphocytes (%) (Auto) , Monocytes (%) (Auto) , Eosinophils (%) (Auto) , Basophils (%) (Auto) , Differential Total Cells Counted 100, Neutrophils % ( Manual) 61, Lymphocytes % (Manual) 20, Monocytes % (Manual) 15H, Eosinophils % ( Manual) 4H, Basophils % (Manual) 0, Band Neutrophils 0, Platelet Estimate Adequate, Platelet Morphology Normal, Anisocytosis 1+, Prothrombin Time 11.4, Prothromb Time International Ratio 1.1, Activated Partial Thromboplast Time 30, Urine Color Thao, Urine Appearance Cloudy, Urine pH 5, Urine Specific [place] 1.020, Urine Protein 4+H, Urine Glucose (UA) 1+H, Urine Ketones Negative, Urine Blood 2+H, Urine Nitrite Negative, Urine Bilirubin 1+H, Urine Ictotest Negative , Urine Urobilinogen Normal, Urine Leukocyte Esterase 1+H, Urine RBC 2-4H, Urine WBC 10-15H, Urine Squamous Epithelial Cells ManyH, Urine Bacteria ManyH, Sodium Level 140, Potassium Level 3.4L, Chloride Level 94L, Carbon Dioxide Level 39H, Anion Gap 7, Blood Urea Nitrogen 21H, Creatinine 2.7H, Estimat Glomerular Filtration Rate 17.4, Glucose Level 147H, Calcium Level 8.1L, Total Bilirubin 0.6, Aspartate Amino Transf (AST/SGOT) 16, Alanine Aminotransferase ( ALT/SGPT) 9L, Alkaline Phosphatase 106, Troponin I 0.017, Total Protein 8.0, Albumin 3.7, Globulin 4.3, Albumin/Globulin Ratio 0.9L, Lipase 141 05/28/19 03:45: Stool Occult Blood [Pending] 05/28/19 07:08: White Blood Count 2.9L, Red Blood Count 3.41L, Hemoglobin 10.7L, Hematocrit 31.4L, Mean Corpuscular Volume 92, Mean Corpuscular Hemoglobin 31.4H, Mean Corpuscular Hemoglobin Concent 34.1, Red Cell Distribution Width 13.9, Platelet Count 180, Mean Platelet Volume 6.3L, Neutrophils (%) (Auto) , Lymphocytes (%) ( Auto) , Monocytes (%) (Auto) , Eosinophils (%) (Auto) , Basophils (%) (Auto) , Differential Total Cells Counted 100, Neutrophils % (Manual) 58, Lymphocytes % ( Manual) 26, Monocytes % (Manual) 11H, Eosinophils % (Manual) 4H, Basophils % ( Manual) 1, Band Neutrophils 0, Platelet Estimate Adequate, Platelet Morphology Normal, Anisocytosis 1+, Sodium Level 136, Potassium Level 3.8, Chloride Level 95L, Carbon Dioxide Level 35H, Anion Gap 6, Blood Urea Nitrogen 29H, Creatinine 4.0H, Estimat Glomerular Filtration Rate 11.1, Glucose Level 203H, Calcium Level 6.9L, Total Bilirubin 0.6, Aspartate Amino Transf (AST/SGOT) 12L, Alanine Aminotransferase (ALT/SGPT) 8L, Alkaline Phosphatase 79, Troponin I 0.027, Total Protein 6.9, Albumin 3.2L, Globulin 3.7, Albumin/Globulin Ratio 0.9L, Hypochromasia 1+, Hemoglobin A1c 6.1H, Phosphorus Level 4.8, Magnesium Level 1.9 , Iron Level 49L, Total Iron Binding Capacity 192L, Percent Iron Saturation 26, Unsaturated Iron Binding 143, Ferritin 692H, Gamma Glutamyl Transpeptidase 33, C -Reactive Protein, Quantitative < 0.4, Pro-B-Type Natriuretic Peptide 95326E, Triglycerides Level 243H, Cholesterol Level 131, LDL Cholesterol 59, HDL Cholesterol 36L, Cholesterol/HDL Ratio 3.6, Vitamin B12 Level 411, Folate 13.7, Thyroid Stimulating Hormone (TSH) 3.732 Height (Feet): 5 Height (Inches): 3.00 Weight (Pounds): 147 General Appearance: no apparent distress Cardiovascular: normal rate Respiratory/Chest: lungs clear Abdomen: soft Francis Falk MD May 28, 2019 12:13
[2019-05-28 16:00] VITALS: BP 136/56
--- NOTE | 2019-05-28 19:30 | NUR ---
NURSE NOTES: Received patient from Margarita LITTLE. Patient in bed, on 2L NC, no s/s of respiratory distress. Bed in low position, locked, bed alarm on, call light with reach.
--- NOTE | 2019-05-28 19:34 | NUR ---
HAND-OFF: Report given to Chris Hall RN. Patient stable.
[2019-05-28 20:00] VITALS: BP 145/66
[2019-05-28] MEDS: NovoLOG Insulin Flexpen SUBQ SCH (23:41)
[2019-05-29] VITALS (7 sets, daily range): BP systolic 139–150; BP diastolic 55–68
--- NOTE | 2019-05-29 05:15 | History and Physical Report ---
DATE OF ADMISSION: 05/27/2019 HISTORY OF PRESENT ILLNESS: The patient is admitted for melena, rectal bleeding, end-stage renal disease, on hemodialysis. The patient denies chest pain. No shortness of breath. No nausea, vomiting, or diarrhea. Denies abdominal pain. No fever or chills. PAST MEDICAL HISTORY: Hyperlipidemia, end-stage renal disease, on hemodialysis, hypertension, constipation, neuropathy, NIDDM, hypothyroidism, and COPD. PAST SURGICAL HISTORY: Related to dialysis. MEDICATIONS: Lipitor, aspirin, Coreg, hydralazine, insulin, labetalol, Levoxyl, and montelukast. ALLERGIES: No known allergies. FAMILY HISTORY: Noncontributory. SOCIAL HISTORY: Denies smoking, alcohol, or illicit drugs. REVIEW OF SYSTEMS: HEENT: Denies headaches. RESPIRATORY: Denies shortness of breath. Denies cough. CARDIOVASCULAR: Denies chest pain. GASTROINTESTINAL: Denies nausea, vomiting, or diarrhea. Does have rectal bleeding. NEUROLOGIC: Denies change in vision or speech pattern. PHYSICAL EXAMINATION: VITAL SIGNS: Temperature is 98.2, pulse is 67, and blood pressure 100/58. HEENT: PERRLA. NECK: Supple. No lymphadenopathy. CHEST: Clear to auscultation. CARDIOVASCULAR: Regular rate and rhythm. No murmurs or extra sounds. GASTROINTESTINAL: Soft, nontender, and nondistended. No organomegaly. EXTREMITIES: 1+ edema. Reflexes on both sides. Moves all four extremities. LABORATORY DATA: WBC of 3.1, hemoglobin of 12, and platelets of 230,000. Sodium 140, potassium 3.4, creatinine of 2.7, BUN of 21, and glucose 147. ASSESSMENT AND PLAN: 1. Rectal bleeding and melena. I have asked Dr. Cervantes to see the patient. 2. End-stage renal disease, on hemodialysis. I have asked Dr. Falk to see the patient for hypokalemia and dialysis orders. We will do the workup for the GI potential Dr. Cervantes. Makenna Daniel M.D. DR: MARTIN JOB#: [id number] CC:
[2019-05-29] MEDS: HydrALAZINE 50mg tab ORAL SCH ×2 (06:09→13:55)
[2019-05-29] MEDS ORDERED: NovoLOG Insulin Flexpen SUBQ SCH (06:30)
[2019-05-29] MEDS: NovoLOG Insulin Flexpen SUBQ SCH ×4 (06:31→21:36)
--- NOTE | 2019-05-29 06:45 | NUR ---
NURSE NOTES: Notified Dr. Daniel that patient is positive for ESBL in the urine.
--- NOTE | 2019-05-29 07:14 | NUR ---
NURSE NOTES: No response from Dr. Daniel regarding patient's urine culture.
--- NOTE | 2019-05-29 07:25 | NUR ---
NURSE NOTES: Patient received from Chris Hall RN. Patient stable AOx4 with no complaints of pain and no s/sx of distress. RR even and unlabored on 2L NC. Call light within reach. Bed low and locked. Will continue to monitor.
[2019-05-29 07:42] LABS: HEMATOCRIT 30.9 % (37.0-47.0); HEMOGLOBIN 10.4 G/DL (12.0-16.0); MEAN CORPUSCULAR VOLUME 93 FL (80-99); PLATELET COUNT 158 K/UL (150-450); RED BLOOD COUNT 3.33 M/UL (4.20-5.40); RED CELL DISTRIBUTION WIDTH 14.1 % (11.6-14.8); WHITE BLOOD COUNT 3.1 K/UL (4.8-10.8)
[2019-05-29 08:16] LABS: ALANINE AMINOTRANSFERASE 10 U/L (12-78); ALBUMIN 3.3 G/DL (3.4-5.0); ALBUMIN/GLOBULIN RATIO 0.9 (1.0-2.7); ALKALINE PHOSPHATASE 81 U/L (46-116); ANION GAP 10 mmol/L (5-15); ASPARTATE AMINO TRANSFERASE 11 U/L (15-37); BILIRUBIN,TOTAL 0.6 MG/DL (0.2-1.0); BLOOD UREA NITROGEN 48 mg/dL (7-18); CARBON DIOXIDE 33 MMOL/L (21-32); CHLORIDE 94 MMOL/L (98-107); CREATININE 5.4 MG/DL (0.55-1.30); SODIUM 137 MMOL/L (136-145)
[2019-05-29] MEDS: Sucralfate 1gm tab ORAL SCH ×4 (08:25→20:56)
[2019-05-29] MEDS: Docusate 100mg cap ORAL SCH ×3 (08:25→17:28)
[2019-05-29] MEDS: Pantoprazole Inj IVP SCH (08:26)
[2019-05-29] MEDS: Carvedilol 25mg Tab ORAL SCH ×2 (08:26→20:56)
[2019-05-29 08:59] LABS: PHOSPHORUS 5.9 MG/DL (2.5-4.9)
[2019-05-29] MEDS ORDERED: Levofloxacin 500mg tab ORAL SCH (11:00)
--- NOTE | 2019-05-29 11:22 | Nephrology Progress Note ---
Assessment/Plan Problem List: (1) ESRD on dialysis (2) Gastrointestinal hemorrhage (3) Anemia in chronic kidney disease (CKD) Assessment GI bleed likely upper- present with melena ESRD h/o Pulm Edema DM HTN Anemia B12 and Iron def CAD . Plan H&H stable- tolerates PO GI Eval noted Protonix , Carafate CXR BP meds- adjust HD as needed, scheduled for 05/30 Med-Surg Previously 2D Echo Ej Fx 50 % PACO: Hepatosplenomegaly. Question of medical renal disease. Small nonobstructive stone in the left kidney suspected. Cholelithiasis Subjective ROS Limited/Unobtainable: No Constitutional: Reports: malaise Objective Objective Last 24 Hour Vital Signs Date Time Temp Pulse Resp B/P (MAP) Pulse Ox O2 Delivery O2 Flow Rate FiO2 05/29/19 09:00 Nasal Cannula 2.0 05/29/19 08:26 72 146/55 05/29/19 08:25 72 146/55 05/29/19 08:00 98.2 72 18 146/55 (85) 99 05/29/19 08:00 74 05/29/19 06:09 145/59 05/29/19 04:00 67 05/29/19 04:00 96.7 65 16 150/64 (92) 99 05/29/19 00:00 97.9 72 16 146/66 (92) 99 05/29/19 00:00 69 05/28/19 21:35 145/66 05/28/19 21:34 71 145/66 05/28/19 21:00 Nasal Cannula 2.0 05/28/19 20:00 97.7 71 16 145/66 (92) 98 05/28/19 20:00 71 05/28/19 16:00 66 05/28/19 16:00 98.1 68 18 136/56 (82) 99 05/28/19 12:56 100/58 05/28/19 12:00 61 05/28/19 11:41 98.3 67 18 100/58 (72) 100 Intake and Output 05/28/19 05/29/19 19:00 07:00 Intake Total 640 ml Balance 640 ml Intake Oral 640 ml # Voids 3 1 Laboratory Tests 05/28/19 15:20: Stool Occult Blood [Pending] 05/29/19 06:35: White Blood Count 3.1L, Red Blood Count 3.33L, Hemoglobin 10.4L, Hematocrit 30.9L, Mean Corpuscular Volume 93, Mean Corpuscular Hemoglobin 31.1H, Mean Corpuscular Hemoglobin Concent 33.6, Red Cell Distribution Width 14.1, Platelet Count 158, Mean Platelet Volume 6.5, Neutrophils (%) (Auto) , Lymphocytes (%) ( Auto) , Monocytes (%) (Auto) , Eosinophils (%) (Auto) , Basophils (%) (Auto) , Differential Total Cells Counted 100, Neutrophils % (Manual) 61, Lymphocytes % ( Manual) 21, Monocytes % (Manual) 10, Eosinophils % (Manual) 6H, Basophils % ( Manual) 2, Band Neutrophils 0, Platelet Estimate Adequate, Platelet Morphology Normal, Hypochromasia 1+, Reticulocyte Count 2.7H, Sodium Level 137, Potassium Level 4.0, Chloride Level 94L, Carbon Dioxide Level 33H, Anion Gap 10, Blood Urea Nitrogen 48H, Creatinine 5.4H, Estimat Glomerular Filtration Rate 7.9, Glucose Level 174H, Calcium Level 7.0L, Phosphorus Level 5.9H, Total Bilirubin 0.6, Aspartate Amino Transf (AST/SGOT) 11L, Alanine Aminotransferase (ALT/SGPT) 10L, Alkaline Phosphatase 81, C-Reactive Protein, Quantitative < 0.4, Pro-B- Type Natriuretic Peptide 62650Z, Total Protein 6.9, Albumin 3.3L, Globulin 3.6, Albumin/Globulin Ratio 0.9L Height (Feet): 5 Height (Inches): 3.00 Weight (Pounds): 151 General Appearance: no apparent distress Objective no change Francis Falk MD May 29, 2019 11:22
--- NOTE | 2019-05-29 11:27 | General Progress Note ---
Assessment/Plan Problem List: (1) ESRD on dialysis ICD Codes: N18.6 - End stage renal disease; Z99.2 - Dependence on renal dialysis SNOMED: 305741396 (2) Gastrointestinal hemorrhage ICD Codes: K92.2 - Gastrointestinal hemorrhage, unspecified SNOMED: 49895028 Qualifiers: Qualified Codes: K92.1 - Melena (3) Diabetic nephropathy with proteinuria ICD Codes: E11.21 - Type 2 diabetes mellitus with diabetic nephropathy SNOMED: 37951955, 511052352 Assessment/Plan: fu stool ob>>positive fu H&H>>>>> stable ppi plan EGD for tomorrow per dr epstein Subjective ROS Limited/Unobtainable: Yes Allergies: Coded Allergies: No Known Allergies (Unverified , 05/12/17) Objective Last 24 Hour Vital Signs Date Time Temp Pulse Resp B/P (MAP) Pulse Ox O2 Delivery O2 Flow Rate FiO2 05/29/19 09:00 Nasal Cannula 2.0 05/29/19 08:26 72 146/55 05/29/19 08:25 72 146/55 05/29/19 08:00 98.2 72 18 146/55 (85) 99 05/29/19 08:00 74 05/29/19 06:09 145/59 05/29/19 04:00 67 05/29/19 04:00 96.7 65 16 150/64 (92) 99 05/29/19 00:00 97.9 72 16 146/66 (92) 99 05/29/19 00:00 69 05/28/19 21:35 145/66 05/28/19 21:34 71 145/66 05/28/19 21:00 Nasal Cannula 2.0 05/28/19 20:00 97.7 71 16 145/66 (92) 98 05/28/19 20:00 71 05/28/19 16:00 66 05/28/19 16:00 98.1 68 18 136/56 (82) 99 05/28/19 12:56 100/58 05/28/19 12:00 61 05/28/19 11:41 98.3 67 18 100/58 (72) 100 Intake and Output 05/28/19 05/29/19 19:00 07:00 Intake Total 640 ml Balance 640 ml Intake Oral 640 ml # Voids 3 1 Laboratory Tests 05/28/19 15:20: Stool Occult Blood [Pending] 05/29/19 06:35: White Blood Count 3.1L, Red Blood Count 3.33L, Hemoglobin 10.4L, Hematocrit 30.9L, Mean Corpuscular Volume 93, Mean Corpuscular Hemoglobin 31.1H, Mean Corpuscular Hemoglobin Concent 33.6, Red Cell Distribution Width 14.1, Platelet Count 158, Mean Platelet Volume 6.5, Neutrophils (%) (Auto) , Lymphocytes (%) ( Auto) , Monocytes (%) (Auto) , Eosinophils (%) (Auto) , Basophils (%) (Auto) , Differential Total Cells Counted 100, Neutrophils % (Manual) 61, Lymphocytes % ( Manual) 21, Monocytes % (Manual) 10, Eosinophils % (Manual) 6H, Basophils % ( Manual) 2, Band Neutrophils 0, Platelet Estimate Adequate, Platelet Morphology Normal, Hypochromasia 1+, Reticulocyte Count 2.7H, Sodium Level 137, Potassium Level 4.0, Chloride Level 94L, Carbon Dioxide Level 33H, Anion Gap 10, Blood Urea Nitrogen 48H, Creatinine 5.4H, Estimat Glomerular Filtration Rate 7.9, Glucose Level 174H, Calcium Level 7.0L, Phosphorus Level 5.9H, Total Bilirubin 0.6, Aspartate Amino Transf (AST/SGOT) 11L, Alanine Aminotransferase (ALT/SGPT) 10L, Alkaline Phosphatase 81, C-Reactive Protein, Quantitative < 0.4, Pro-B- Type Natriuretic Peptide 42712I, Total Protein 6.9, Albumin 3.3L, Globulin 3.6, Albumin/Globulin Ratio 0.9L Height (Feet): 5 Height (Inches): 3.00 Weight (Pounds): 151 General Appearance: no apparent distress EENT: normal ENT inspection Neck: supple Cardiovascular: normal rate Respiratory/Chest: decreased breath sounds Abdomen: normal bowel sounds, non tender, soft Extremities: non-tender Lito Cervantes MD May 29, 2019 11:27
--- NOTE | 2019-05-29 12:12 | NUR ---
NURSE NOTES: Patient signed consent for EGD with possible biopsy and hemostasis. [facility] nephrology called and notified that patient is scheduled tomorrow for dialysis. Per tech they will forward message to
--- NOTE | 2019-05-29 12:41 | General Progress Note ---
Assessment/Plan Problem List: (1) ESRD (end stage renal disease) ICD Codes: N18.6 - End stage renal disease SNOMED: 06310130 (2) Black tarry stools ICD Codes: K92.1 - Melena SNOMED: 196011989 (3) leukopenia (4) Hypertensive kidney disease ICD Codes: I12.9 - Hypertensive chronic kidney disease with stage 1 through stage 4 chronic kidney disease, or unspecified chronic kidney disease SNOMED: 77962534 (5) Diabetic nephropathy with proteinuria ICD Codes: E11.21 - Type 2 diabetes mellitus with diabetic nephropathy SNOMED: 01267981, 889000501 (6) Anemia in chronic kidney disease (CKD) ICD Codes: N18.9 - Chronic kidney disease, unspecified; D63.1 - Anemia in chronic kidney disease SNOMED: 848919026 (7) Gastrointestinal hemorrhage ICD Codes: K92.2 - Gastrointestinal hemorrhage, unspecified SNOMED: 61796735 Qualifiers: Qualified Codes: K92.1 - Melena (8) ESRD on dialysis ICD Codes: N18.6 - End stage renal disease; Z99.2 - Dependence on renal dialysis SNOMED: 464381346 Assessment/Plan: moniter for gi bleed esrd on hd gi bleed check h/h reveiwed chart and labs Subjective ROS Limited/Unobtainable: Yes Allergies: Coded Allergies: No Known Allergies (Unverified , 05/12/17) Objective Last 24 Hour Vital Signs Date Time Temp Pulse Resp B/P (MAP) Pulse Ox O2 Delivery O2 Flow Rate FiO2 05/29/19 11:55 98.1 76 18 149/67 (94) 100 05/29/19 09:00 Nasal Cannula 2.0 05/29/19 08:26 72 146/55 05/29/19 08:25 72 146/55 05/29/19 08:00 98.2 72 18 146/55 (85) 99 05/29/19 08:00 74 05/29/19 06:09 145/59 05/29/19 04:00 67 05/29/19 04:00 96.7 65 16 150/64 (92) 99 05/29/19 00:00 97.9 72 16 146/66 (92) 99 05/29/19 00:00 69 05/28/19 21:35 145/66 05/28/19 21:34 71 145/66 05/28/19 21:00 Nasal Cannula 2.0 05/28/19 20:00 97.7 71 16 145/66 (92) 98 05/28/19 20:00 71 05/28/19 16:00 66 05/28/19 16:00 98.1 68 18 136/56 (82) 99 05/28/19 12:56 100/58 Intake and Output 05/28/19 05/29/19 19:00 07:00 Intake Total 640 ml Balance 640 ml Intake Oral 640 ml # Voids 3 1 Laboratory Tests 05/28/19 15:20: Stool Occult Blood [Pending] 05/29/19 06:35: White Blood Count 3.1L, Red Blood Count 3.33L, Hemoglobin 10.4L, Hematocrit 30.9L, Mean Corpuscular Volume 93, Mean Corpuscular Hemoglobin 31.1H, Mean Corpuscular Hemoglobin Concent 33.6, Red Cell Distribution Width 14.1, Platelet Count 158, Mean Platelet Volume 6.5, Neutrophils (%) (Auto) , Lymphocytes (%) ( Auto) , Monocytes (%) (Auto) , Eosinophils (%) (Auto) , Basophils (%) (Auto) , Differential Total Cells Counted 100, Neutrophils % (Manual) 61, Lymphocytes % ( Manual) 21, Monocytes % (Manual) 10, Eosinophils % (Manual) 6H, Basophils % ( Manual) 2, Band Neutrophils 0, Platelet Estimate Adequate, Platelet Morphology Normal, Hypochromasia 1+, Reticulocyte Count 2.7H, Sodium Level 137, Potassium Level 4.0, Chloride Level 94L, Carbon Dioxide Level 33H, Anion Gap 10, Blood Urea Nitrogen 48H, Creatinine 5.4H, Estimat Glomerular Filtration Rate 7.9, Glucose Level 174H, Calcium Level 7.0L, Phosphorus Level 5.9H, Total Bilirubin 0.6, Aspartate Amino Transf (AST/SGOT) 11L, Alanine Aminotransferase (ALT/SGPT) 10L, Alkaline Phosphatase 81, C-Reactive Protein, Quantitative < 0.4, Pro-B- Type Natriuretic Peptide [id number], Total Protein 6.9, Albumin 3.3L, Globulin 3.6, Albumin/Globulin Ratio 0.9L Height (Feet): 5 Height (Inches): 3.00 Weight (Pounds): 151 Neck: supple Cardiovascular: normal rate Respiratory/Chest: lungs clear Abdomen: soft Makenna Daniel MD May 29, 2019 12:41
--- NOTE | 2019-05-29 18:21 | NUR ---
HAND-OFF: Report given to Francoise Hoskins RN. Patient stable, AOx4 with no s/sx of distress. RR even and unlabored on RA. All belongings with patient including glassess and dentures.
--- NOTE | 2019-05-29 18:26 | NUR ---
NURSE NOTES: Patient transfered from Tele 214-2; I received report from SIDNEY Colvin; belonging list singed by both receiving and transfering nurses; I received Insulin pen; Patient awake, alert x4; on room air, no sing of distress and shortness of breath; no sing of chest pain; IV RAC 22G flushes well; Hemodialysis access on Left Upper Fistula; patient scheduled with [facility] for Hemodialysis 05/30/19; patient gonna be NPO @ mid-night for EGD at 05/30/19; side rails up x2, breaks engaged, bed at lowest position; will keep monitoring.
[2019-05-29] MEDS ORDERED: HydrALAZINE 25mg tab ORAL PRN (18:45)
--- NOTE | 2019-05-29 19:06 | NUR ---
HAND-OFF: Report given to SIDNEY Zhao.
--- NOTE | 2019-05-29 20:04 | NUR ---
NURSE NOTES: RECEIVED PATIENT LYING IN BED, AWAKE, ALERT/ORIENTED X4, VERBALLY RESPONSIVE, DENIES PAIN. AV FISTULA TO LEFT UPPER ARM, BRUIT AUDIBLE/THRILL PALPABLE, HD SCHEDULED 05/30/19/[facility]. DENIES GI DISCOMFORT, ABDOMEN SOFT/AUDIBLE BOWEL SOUNDS, NPO AFTER MIDNIGHT, PATIENT AWARE. SIDE RAILS UP X2/BED IN LOWEST POSITION FOR SAFETY, ENCOURAGED PATIENT TO UTILIZE CALL LIGHT FOR ASSISTANCE, VERBALIZED UNDERSTANDING. CONTINUE WITH CURRENT PLAN OF CARE. NAD.
--- NOTE | 2019-05-29 21:45 | NUR ---
NURSE NOTES: WEIGHED PATIENT VIA BED SCALE, BED SUCCESSFULLY ZEROED OUT PRIOR TO WEIGHING-
[2019-05-29] MEDS: HydrALAZINE 25mg tab ORAL SCH (21:53)
[2019-05-30] VITALS (11 sets, daily range): BP systolic 123–175; BP diastolic 54–94
--- NOTE | 2019-05-30 | NUR ---
NURSE NOTES: NPO AFTER MIDNIGHT, PATIENT AWARE-
[2019-05-30] MEDS: HydrALAZINE 25mg tab ORAL SCH ×4 (06:00→22:14)
[2019-05-30] MEDS: NovoLOG Insulin Flexpen SUBQ SCH ×4 (06:25→22:13)
--- NOTE | 2019-05-30 07:32 | NUR ---
HAND-OFF: Report given to SIDNEY DUNBAR.
--- NOTE | 2019-05-30 07:33 | NUR ---
NURSE NOTES: Received pt in bed, AAO x 4. NC 2L/min. [place] speaking. NPO since midnight for EGD for this morning. IV on RAC 22g intact and patent with saline lock. Side rails x 2. Bed in the lowest and locked. Call light within reach. Will continue to monitor
[2019-05-30 07:40] LABS: BASOPHILS % (AUTO) 1.2 % (0.0-2.0); EOSINOPHILS % (AUTO) 4.5 % (0.0-3.0); HEMATOCRIT 28.2 % (37.0-47.0); HEMOGLOBIN 9.3 G/DL (12.0-16.0); LYMPHOCYTES % (AUTO) 16.6 % (20.0-45.0); MEAN CORPUSCULAR VOLUME 93 FL (80-99); MONOCYTES % (AUTO) 7.9 % (1.0-10.0); NEUTROPHILS % (AUTO) 69.8 % (45.0-75.0); PLATELET COUNT 157 K/UL (150-450); RED BLOOD COUNT 3.04 M/UL (4.20-5.40); RED CELL DISTRIBUTION WIDTH 13.9 % (11.6-14.8); WHITE BLOOD COUNT 3.5 K/UL (4.8-10.8)
[2019-05-30 07:52] LABS: ALANINE AMINOTRANSFERASE 11 U/L (12-78); ALBUMIN 3.1 G/DL (3.4-5.0); ALBUMIN/GLOBULIN RATIO 0.9 (1.0-2.7); ALKALINE PHOSPHATASE 83 U/L (46-116); ANION GAP 9 mmol/L (5-15); ASPARTATE AMINO TRANSFERASE 10 U/L (15-37); BILIRUBIN,TOTAL 0.6 MG/DL (0.2-1.0); BLOOD UREA NITROGEN 72 mg/dL (7-18); CALCIUM 6.8 MG/DL (8.5-10.1); CARBON DIOXIDE 30 MMOL/L (21-32); CHLORIDE 95 MMOL/L (98-107); CREATININE 6.3 MG/DL (0.55-1.30); PHOSPHORUS 5.6 MG/DL (2.5-4.9); POTASSIUM 4.4 MMOL/L (3.5-5.1); SODIUM 134 MMOL/L (136-145)
[2019-05-30] MEDS ORDERED: fentaNYL 100 mcg/2 mL IV PRN (08:00)
[2019-05-30] MEDS ORDERED: Atropine Inj 1mg/10ml Syr IV PRN (08:00)
[2019-05-30] MEDS ORDERED: Midazolam 2mg/2ml Inj IVP PRN (08:00)
[2019-05-30] MEDS ORDERED: DiphenhydrAMINE 50mg/ml Inj IVP PRN (08:00)
--- NOTE | 2019-05-30 08:16 | Anethesia Preoperative Eval ---
Anesthesia Pre-op PMH/ROS General Date of Evaluation: May 30, 2019 Time of Evaluation: 08:00 Anesthesiologist: raza ASA Score: ASA 4 Mallampati Score Class I : Soft palate, uvula, fauces, pillars visible Class II: Soft palate, uvula, fauces visible Class III: Soft palate, base of uvula visible Class IV: Only hard plate visible Mallampati Classification: Class II Surgeon: barbara Diagnosis: gi bleed Surgical Procedure: egd Anesthesia History: none Family History: no anesthesia problems Allergies: Coded Allergies: No Known Allergies (Unverified , 05/12/17) Medications: see eMAR Patient NPO?: Yes NPO Date: May 30, 2019 NPO Time: 0000 Past Medical History Cardiovascular: Reports: HTN, other - cardiomegaly, chf, hypercholesterolemia Pulmonary: Reports: asthma, other - dyspnea Gastrointestinal/Genitourinary: Reports: GERD, ESRD - mwf, other - hypertensive kidney dz, pyuria Neurologic/Psychiatric: Reports: depression/anxiety, TIA, other - diabetic neuropathy, tinnitis, vertigo, Endocrine: Reports: hypothyroidism Hematology/Immune: Reports: anemia, other - leukopenia Anesthesia Pre-op Phys. Exam Physician Exam Last Vital Signs Date Time Temp Pulse Resp B/P (MAP) Pulse Ox O2 Delivery O2 Flow Rate FiO2 05/30/19 06:00 134/66 05/30/19 04:00 97.7 68 19 100 05/29/19 21:00 Nasal Cannula 2.0 05/27/19 13:50 93 Constitutional: NAD Neurologic: CN 2-12 intact Cardiovascular: RRR Respiratory: CTA Gastrointestinal: S/NT/ND Airway Exam Mallampati Score: Class II MO: limited Neck: flexible TMD: 2fb ROM: limited Teeth: missing Anesthesia Pre-op A/P Labs Hematology Test 05/30/19 06:44 White Blood Count 3.5 K/UL (4.8-10.8) L Red Blood Count 3.04 M/UL (4.20-5.40) L Hemoglobin 9.3 G/DL (12.0-16.0) L Hematocrit 28.2 % (37.0-47.0) L Mean Corpuscular Volume 93 FL (80-99) Mean Corpuscular Hemoglobin 30.5 PG (27.0-31.0) Mean Corpuscular Hemoglobin Concent 32.8 G/DL (32.0-36.0) Red Cell Distribution Width 13.9 % (11.6-14.8) Platelet Count 157 K/UL (150-450) Mean Platelet Volume 6.3 FL (6.5-10.1) L Neutrophils (%) (Auto) 69.8 % (45.0-75.0) Lymphocytes (%) (Auto) 16.6 % (20.0-45.0) L Monocytes (%) (Auto) 7.9 % (1.0-10.0) Eosinophils (%) (Auto) 4.5 % (0.0-3.0) H Basophils (%) (Auto) 1.2 % (0.0-2.0) Chemistry Test 05/30/19 06:44 Sodium Level Pending Potassium Level Pending Chloride Level Pending Carbon Dioxide Level Pending Blood Urea Nitrogen Pending Creatinine Pending Estimat Glomerular Filtration Rate Pending Glucose Level Pending Calcium Level Pending Phosphorus Level Pending Total Bilirubin Pending Aspartate Amino Transf (AST/SGOT) Pending Alanine Aminotransferase (ALT/SGPT) Pending Alkaline Phosphatase Pending Total Protein Pending Albumin Pending Globulin Pending Risk Assessment & Plan Assessment: asa4 Plan: mac Status Change Before Surgery: No Pre-Antibiotics Drug: Alison Valenzuela MD May 30, 2019 08:16
[2019-05-30] MEDS: Sucralfate 1gm tab ORAL SCH ×4 (09:00→22:13)
[2019-05-30] MEDS: Docusate 100mg cap ORAL SCH ×3 (09:00→17:09)
[2019-05-30] MEDS: Carvedilol 25mg Tab ORAL SCH ×2 (09:00→22:13)
--- NOTE | 2019-05-30 09:56 | NUR ---
NURSE NOTES: Patient went down for EGD
[2019-05-30] MEDS ORDERED: Lidocaine 1% MPF 10mg/ml 5ml ONE (10:00)
[2019-05-30] MEDS ORDERED: Propofol 200mg/20ml IV ONE (10:00)
--- NOTE | 2019-05-30 10:05 | Pre-Procedure Note/Attestation ---
Pre-Procedure Note/Attestation Complete Prior to Procedure Planned Procedure: not applicable Procedure Narrative: egd Indications for Procedure Pre-Operative Diagnosis: GIB Attestation I attest that I discussed the nature of the procedure; its benefits; risks and complications; and alternatives (and the risks and benefits of such alternatives ), prior to the procedure, with the patient (or the patient's legal medical claims representative). I attest that, if there was a reasonable possibility of needing a blood transfusion, the patient (or the patient's legal medical claims representative) was given the [facility] standardized written summary, pursuant to the Damien Bianka Blood Safety Act ([place] Health and Safety Code # 1645, as amended). I attest that I re-evaluated the patient just prior to the surgery and that there has been no change in the patient's H&P, except as documented below: Lito Cervantes MD May 30, 2019 10:05
[2019-05-30] MEDS ORDERED: NS 500ML IVPB ONE (10:10)
--- NOTE | 2019-05-30 10:17 | Endoscopy Procedure Note ---
Endoscopy Procedure Note General Indication for Procedure: gib Procedures Performed: EGD Operative Findings/Diagnosis: gastritis Specimen: yes Pt Tolerated Procedure Well: Yes Estimated Blood Loss: none Anesthesia Anesthesiologist: christy Anesthesia: MAC Inserted Devices Implant(s) used?: No GI Core Measures 50 yrs or older w/o bx or poly: Not Applicable 10yrs. F/U recommended: Not Applicable Lito Cervantes MD May 30, 2019 10:17
--- NOTE | 2019-05-30 11:16 | Nephrology Progress Note ---
Assessment/Plan Problem List: (1) ESRD on dialysis (2) Gastrointestinal hemorrhage (3) Anemia in chronic kidney disease (CKD) Assessment GI bleed likely upper- present with melena ESRD h/o Pulm Edema DM HTN Anemia B12 and Iron def CAD . Plan due for upper endoscopy shortly H&H stable- tolerates PO GI Eval noted Protonix , Carafate CXR BP meds- adjust HD as needed, scheduled for 05/30 Med-Surg Previously 2D Echo Ej Fx 50 % PACO: Hepatosplenomegaly. Question of medical renal disease. Small nonobstructive stone in the left kidney suspected. Cholelithiasis Subjective ROS Limited/Unobtainable: No Objective Objective Last 24 Hour Vital Signs Date Time Temp Pulse Resp B/P (MAP) Pulse Ox O2 Delivery O2 Flow Rate FiO2 05/30/19 11:05 98.0 72 15 159/69 100 Nasal Cannula 3 05/30/19 10:56 64 17 152/88 100 Nasal Cannula 3 05/30/19 10:46 69 14 167/54 100 Nasal Cannula 3 05/30/19 10:41 70 13 159/56 100 Nasal Cannula 3 05/30/19 10:36 97.3 68 18 149/68 100 Nasal Cannula 3 05/30/19 09:00 Nasal Cannula 2.0 05/30/19 08:00 98.0 70 18 140/62 (88) 100 05/30/19 06:00 134/66 05/30/19 04:00 97.7 68 19 138/60 (86) 100 05/30/19 00:00 97.2 71 20 145/94 (111) 100 05/29/19 21:53 117/53 05/29/19 21:00 Nasal Cannula 2.0 05/29/19 20:56 69 139/63 05/29/19 20:00 98.2 69 18 139/63 (88) 96 05/29/19 18:15 97.9 74 18 145/68 (93) 96 05/29/19 16:00 97.7 73 18 144/59 (87) 100 05/29/19 16:00 74 05/29/19 13:55 149/67 05/29/19 12:00 74 05/29/19 11:55 98.1 76 18 149/67 (94) 100 Intake and Output 05/29/19 05/30/19 19:00 07:00 Intake Total 390 ml 220 ml Balance 390 ml 220 ml Intake Oral 390 ml 220 ml # Voids 1 2 Laboratory Tests 05/30/19 06:44: White Blood Count 3.5L, Red Blood Count 3.04L, Hemoglobin 9.3L, Hematocrit 28.2L , Mean Corpuscular Volume 93, Mean Corpuscular Hemoglobin 30.5, Mean Corpuscular Hemoglobin Concent 32.8, Red Cell Distribution Width 13.9, Platelet Count 157, Mean Platelet Volume 6.3L, Neutrophils (%) (Auto) 69.8, Lymphocytes ( %) (Auto) 16.6L, Monocytes (%) (Auto) 7.9, Eosinophils (%) (Auto) 4.5H, Basophils (%) (Auto) 1.2, Sodium Level 134L, Potassium Level 4.4, Chloride Level 95L, Carbon Dioxide Level 30, Anion Gap 9, Blood Urea Nitrogen 72H, Creatinine 6.3H, Estimat Glomerular Filtration Rate 6.5, Glucose Level 190H, Calcium Level 6.8L, Phosphorus Level 5.6H, Total Bilirubin 0.6, Aspartate Amino Transf (AST/SGOT) 10L, Alanine Aminotransferase (ALT/SGPT) 11L, Alkaline Phosphatase 83, Total Protein 6.5, Albumin 3.1L, Globulin 3.4, Albumin/Globulin Ratio 0.9L Height (Feet): 5 Height (Inches): 3.00 Weight (Pounds): 140 General Appearance: no apparent distress Objective no change Francis Falk MD May 30, 2019 11:16
--- NOTE | 2019-05-30 11:47 | NUR ---
NURSE NOTES: Patient is back on the floor. Stable vital sign with BP 134/58, OH 71, SpO2 99%, T 97.7, pain 3/10 on abdominal area and head.
--- NOTE | 2019-05-30 12:02 | Immediate Post-Op Evaluation ---
Immediate Post-Op Evalulation Immediate Post-Op Evalulation Procedure: egd w/bx Date of Evaluation: May 30, 2019 Time of Evaluation: 10:48 IV Fluids: 100ml 0.9ns Blood Products: none Estimated Blood Loss: negligible Blood Pressure Systolic: 149 Blood Pressure Diastolic: 68 Pulse Rate: 68 Respiratory Rate: 18 O2 Sat by Pulse Oximetry: 100 Temperature (Fahrenheit): 97.3 Pain Score (1-10): 0 Nausea: No Vomiting: No Complications none Patient Status: awake, reacts, patent Hydration Status: adequate Drug: Alison Valenzuela MD May 30, 2019 12:02
--- NOTE | 2019-05-30 12:03 | 48 Hour Post Anesthesia Eval ---
Post Anesthesia Evaluation Procedure: egd w/bx Date of Evaluation: May 30, 2019 Time of Evaluation: 10:50 Blood Pressure Systolic: 159 0: 56 Pulse Rate: 70 Respiratory Rate: 18 Temperature (Fahrenheit): 97.3 O2 Sat by Pulse Oximetry: 100 Airway: patent Nausea: No Vomiting: No Pain Intensity: 0 Hydration Status: adequate Cardiopulmonary Status: stable Mental Status/LOC: patient returned to baseline Post-Anesthesia Complications: none Follow-up care needed: N/A Alison Nava MD May 30, 2019 12:03
--- NOTE | 2019-05-30 13:00 | NUR ---
NURSE NOTES: Patient returned to unit s/p EGD. Report received from SIDNEY Trujillo. Vital signs stable. Will continue to monitor.
--- NOTE | 2019-05-30 17:15 | Procedure Note ---
DATE OF PROCEDURE: 05/30/2019 SURGEON: Lito Cervantes M.D. REFERRING PHYSICIAN: Makenna Daniel M.D. PROCEDURE: Upper endoscopy with biopsy. ANESTHESIA: Dr. Fletcher. INSTRUMENT: Olympus adult flexible upper endoscope . INDICATION: Upper GI bleeding. REASON FOR PROCEDURE: The procedure, risks, benefits, and possible consequences, including hemorrhage, aspiration, perforation and infection, and alternative treatments, were explained to the patient/legal guardian by Dr. Lito Cervantes and the patient/legal guardian understood and accepted these risks. PROCEDURE IN DETAIL: After informed consent was obtained and the patient was adequately sedated, Olympus upper endoscope was advanced from mouth into the second portion of the duodenum and retroflexion was performed in the stomach. The patient had evidence of no obvious active upper GI bleeding at this time. No esophagitis. No esophageal varices. In the stomach, there was mild gastritis. Random biopsy from antrum was obtained to rule out H. pylori infection. At this time, the upper endoscope was retrieved and procedure was terminated. SUMMARY OF FINDINGS: Gastritis, otherwise normal upper endoscopic examination. RECOMMENDATIONS: Follow biopsy results and treat accordingly. The patient had two stool OB positive per chart on this admission. She had a colonoscopy this year, which did not show anything. At this time, we are not exactly sure where the patient lost all that blood. The patient might benefit from outpatient followup for capsule endoscopy. I want to thank Dr. Makenna Daniel for this kind referral. Lito Cervantes M.D. DR: LAURA JOB#: [id number] CC: Ramakrishna Leonard M.D.; Fax#: [phone]
--- NOTE | 2019-05-30 18:10 | General Progress Note ---
Assessment/Plan Assessment/Plan: Assessment - Dark stools, ? due to po FE (but stools are OB +) - h/o gastritis (10/19) - again now - h/o colon adenoma x 2 (10/2018) - ERSD /HD Recommendations - PPI - follow CBC - will consider capsule endoscopy Subjective Allergies: Coded Allergies: No Known Allergies (Unverified , 05/12/17) Subjective above noted had EGD today - no significant findings OB (+) x 2 noted Objective Last 24 Hour Vital Signs Date Time Temp Pulse Resp B/P (MAP) Pulse Ox O2 Delivery O2 Flow Rate FiO2 05/30/19 16:00 98.1 73 18 175/71 (105) 97 05/30/19 13:53 159/56 05/30/19 12:03 70 18 100 05/30/19 12:02 68 18 100 05/30/19 12:00 97.7 71 13 134/58 (83) 99 05/30/19 11:05 98.0 72 15 159/69 100 Nasal Cannula 3 05/30/19 10:56 64 17 152/88 100 Nasal Cannula 3 05/30/19 10:46 69 14 167/54 100 Nasal Cannula 3 05/30/19 10:41 70 13 159/56 100 Nasal Cannula 3 05/30/19 10:36 97.3 68 18 149/68 100 Nasal Cannula 3 05/30/19 09:00 Nasal Cannula 2.0 05/30/19 08:00 98.0 70 18 140/62 (88) 100 05/30/19 06:00 134/66 05/30/19 04:00 97.7 68 19 138/60 (86) 100 05/30/19 00:00 97.2 71 20 145/94 (111) 100 05/29/19 21:53 117/53 05/29/19 21:00 Nasal Cannula 2.0 05/29/19 20:56 69 139/63 05/29/19 20:00 98.2 69 18 139/63 (88) 96 05/29/19 18:15 97.9 74 18 145/68 (93) 96 Intake and Output 05/29/19 05/30/19 19:00 07:00 Intake Total 390 ml 220 ml Balance 390 ml 220 ml Intake Oral 390 ml 220 ml # Voids 1 2 Laboratory Tests 05/30/19 06:44: White Blood Count 3.5L, Red Blood Count 3.04L, Hemoglobin 9.3L, Hematocrit 28.2L , Mean Corpuscular Volume 93, Mean Corpuscular Hemoglobin 30.5, Mean Corpuscular Hemoglobin Concent 32.8, Red Cell Distribution Width 13.9, Platelet Count 157, Mean Platelet Volume 6.3L, Neutrophils (%) (Auto) 69.8, Lymphocytes ( %) (Auto) 16.6L, Monocytes (%) (Auto) 7.9, Eosinophils (%) (Auto) 4.5H, Basophils (%) (Auto) 1.2, Sodium Level 134L, Potassium Level 4.4, Chloride Level 95L, Carbon Dioxide Level 30, Anion Gap 9, Blood Urea Nitrogen 72H, Creatinine 6.3H, Estimat Glomerular Filtration Rate 6.5, Glucose Level 190H, Calcium Level 6.8L, Phosphorus Level 5.6H, Total Bilirubin 0.6, Aspartate Amino Transf (AST/SGOT) 10L, Alanine Aminotransferase (ALT/SGPT) 11L, Alkaline Phosphatase 83, Total Protein 6.5, Albumin 3.1L, Globulin 3.4, Albumin/Globulin Ratio 0.9L Height (Feet): 5 Height (Inches): 3.00 Weight (Pounds): 168 Objective WDWN L woman NCAT supple CTA RR abd soft no edema Ramakrishna Leonard MD May 30, 2019 18:10
--- NOTE | 2019-05-30 19:47 | NUR ---
HAND-OFF: Report given to SIDNEY Gooden.
--- NOTE | 2019-05-30 19:47 | NUR ---
NURSE NOTES: Patient had dialysis and 3 L output
--- NOTE | 2019-05-30 19:48 | NUR ---
NURSE NOTES: Received pt in bed, AAO x 4. on RA, [place] speaking. IV on RAC 22g intact and patent with saline lock. Side rails x 2. Bed in the lowest position and locked. Call light within reach. Will continue to monitor
[2019-05-30] MEDS ORDERED: ZETIA10 MG ORAL (20:17)
[2019-05-30] MEDS ORDERED: CARVEDILOL25 MG ORAL (20:17)
[2019-05-30] MEDS ORDERED: NIFEDIPINE ER90 M2 ORAL (20:17)
--- NOTE | 2019-05-30 20:30 | Consultation ---
DATE OF CONSULTATION: 05/30/2019 INFECTIOUS DISEASE CONSULTATION CONSULTING PHYSICIAN: Kalin Briseno M.D. PRIMARY ATTENDING PHYSICIAN: Makenna Daniel M.D. REASON FOR CONSULT: Pyuria, bacteriuria, and urinary tract infection. HISTORY OF PRESENT ILLNESS: The patient is a 69-year-old female, admitted on 05/27/2019 from home complaining of black tarry stool and recent weakness. She had a drop in hemoglobin and hematocrit. Stool occult blood was positive. Urine culture is growing E. coli ESBL and strep group B. PAST MEDICAL HISTORY: Significant for end-stage renal disease, on hemodialysis, hypertension, diabetic nephropathy, cholelithiasis, aortic stenosis, colonic polyp, and hyperlipidemia. MEDICATIONS: Getting Levaquin, amlodipine, Colace, Renvela, Tylenol, fentanyl, midazolam, hydralazine, Mylanta, diphenhydramine, levothyroxine, atorvastatin, carvedilol, Protonix, sucralfate, and insulin. ALLERGIES: No known drug allergies. SOCIAL HISTORY: Originally from [facility]. Single. No history of alcohol, drug abuse, or smoking. REVIEW OF SYSTEMS: Throughout the hospital course, the patient has no fever. No chills. No coughing. No nausea. No vomiting. Mild upper abdominal pain. Denies any dysuria. The patient had an EGD today that shows gastritis. PHYSICAL EXAMINATION: VITAL SIGNS: Temperature 98, blood pressure 159/69, pulse 72. GENERAL APPEARANCE: No acute distress. Eating food. HEAD AND NECK: Rossie conjunctiva. HEART: Normal rate. LUNGS: Clear. ABDOMEN: Soft and nontender. EXTREMITY: She has no edema. NEUROLOGIC: She is awake, alert, and oriented x3. LABORATORY DATA: Stool occult blood positive for just two times. WBC 3.1, hemoglobin 9.3, hematocrit 28.2, and platelets 157,000. Sodium 134, potassium 4.4, chloride 95, bicarbonate 30, BUN 73, creatinine 6.3, and glucose 190. Phosphorous 5.6. Calcium 6.8. UA showed wbc of 10 to 15 and bacteria many. IMPRESSION: Bacteriuria, pyuria, urinary tract infection, has gastrointestinal bleeding secondary to gastritis, has anemia, end-stage renal disease on hemodialysis, hypertension, hyperlipidemia, and hypothyroidism. RECOMMENDATIONS: Continue Cipro for short course likely 3 days is enough for treatment of infection. At the end of my exam, I thank Dr. Daniel, for involving me in the care of this patient. Kalin Briseno M.D. DR: VAL JOB#: [id number] CC: [email or web address]
--- NOTE | 2019-05-30 21:46 | General Progress Note ---
Assessment/Plan Problem List: (1) ESRD (end stage renal disease) ICD Codes: N18.6 - End stage renal disease SNOMED: 95768846 (2) Black tarry stools ICD Codes: K92.1 - Melena SNOMED: 899607837 (3) leukopenia (4) Hypertensive kidney disease ICD Codes: I12.9 - Hypertensive chronic kidney disease with stage 1 through stage 4 chronic kidney disease, or unspecified chronic kidney disease SNOMED: 55724262 (5) Diabetic nephropathy with proteinuria ICD Codes: E11.21 - Type 2 diabetes mellitus with diabetic nephropathy SNOMED: 08083745, 900250252 (6) Anemia in chronic kidney disease (CKD) ICD Codes: N18.9 - Chronic kidney disease, unspecified; D63.1 - Anemia in chronic kidney disease SNOMED: 872070320 (7) Gastrointestinal hemorrhage ICD Codes: K92.2 - Gastrointestinal hemorrhage, unspecified SNOMED: 29823502 Qualifiers: Qualified Codes: K92.1 - Melena (8) ESRD on dialysis ICD Codes: N18.6 - End stage renal disease; Z99.2 - Dependence on renal dialysis SNOMED: 828227971 Status: progressing Assessment/Plan: moniter for gi bleed esrd on hd no gi bleed vitals stable anemia no fever Subjective ROS Limited/Unobtainable: Yes Allergies: Coded Allergies: No Known Allergies (Unverified , 05/12/17) Objective Last 24 Hour Vital Signs Date Time Temp Pulse Resp B/P (MAP) Pulse Ox O2 Delivery O2 Flow Rate FiO2 05/30/19 20:00 98.7 81 18 123/64 (83) 99 05/30/19 16:00 98.1 73 18 175/71 (105) 97 05/30/19 13:53 159/56 05/30/19 12:03 70 18 100 05/30/19 12:02 68 18 100 05/30/19 12:00 97.7 71 13 134/58 (83) 99 05/30/19 11:05 98.0 72 15 159/69 100 Nasal Cannula 3 05/30/19 10:56 64 17 152/88 100 Nasal Cannula 3 05/30/19 10:46 69 14 167/54 100 Nasal Cannula 3 05/30/19 10:41 70 13 159/56 100 Nasal Cannula 3 10/28/19 10:36 97.3 68 18 149/68 100 Nasal Cannula 3 05/30/19 09:00 Nasal Cannula 2.0 05/30/19 08:00 98.0 70 18 140/62 (88) 100 05/30/19 06:00 134/66 05/30/19 04:00 97.7 68 19 138/60 (86) 100 05/30/19 00:00 97.2 71 20 145/94 (111) 100 05/29/19 21:53 117/53 Intake and Output 05/29/19 05/30/19 19:00 07:00 Intake Total 390 ml 220 ml Balance 390 ml 220 ml Intake Oral 390 ml 220 ml # Voids 1 2 Laboratory Tests 05/30/19 06:44: White Blood Count 3.5L, Red Blood Count 3.04L, Hemoglobin 9.3L, Hematocrit 28.2L , Mean Corpuscular Volume 93, Mean Corpuscular Hemoglobin 30.5, Mean Corpuscular Hemoglobin Concent 32.8, Red Cell Distribution Width 13.9, Platelet Count 157, Mean Platelet Volume 6.3L, Neutrophils (%) (Auto) 69.8, Lymphocytes ( %) (Auto) 16.6L, Monocytes (%) (Auto) 7.9, Eosinophils (%) (Auto) 4.5H, Basophils (%) (Auto) 1.2, Sodium Level 134L, Potassium Level 4.4, Chloride Level 95L, Carbon Dioxide Level 30, Anion Gap 9, Blood Urea Nitrogen 72H, Creatinine 6.3H, Estimat Glomerular Filtration Rate 6.5, Glucose Level 190H, Calcium Level 6.8L, Phosphorus Level 5.6H, Total Bilirubin 0.6, Aspartate Amino Transf (AST/SGOT) 10L, Alanine Aminotransferase (ALT/SGPT) 11L, Alkaline Phosphatase 83, Total Protein 6.5, Albumin 3.1L, Globulin 3.4, Albumin/Globulin Ratio 0.9L Height (Feet): 5 Height (Inches): 3.00 Weight (Pounds): 168 Cardiovascular: normal rate Respiratory/Chest: lungs clear Abdomen: soft Makenna Daniel MD May 30, 2019 21:46
[2019-05-31] VITALS: BP 125/62
[2019-05-31 04:00] VITALS: BP 171/67
[2019-05-31] MEDS: HydrALAZINE 25mg tab ORAL SCH (05:53)
[2019-05-31] MEDS: NovoLOG Insulin Flexpen SUBQ SCH ×2 (06:46→11:30)
--- NOTE | 2019-05-31 07:14 | NUR ---
HAND-OFF: Report given to SIDNEY Pike.
--- NOTE | 2019-05-31 07:15 | NUR ---
NURSE NOTES: Received pt in bed, AAO x 4. Mongolian speaking. On NC 2L/min. IV on R AC 22g intact and patent, with saline lock. Fistula on SHAMEKA noted. Side rails x2. Bed in the lowest and locked. Call light within reach. Will continue to monitor
[2019-05-31 08:00] VITALS: BP 180/69
[2019-05-31] MEDS: Sucralfate 1gm tab ORAL SCH (08:40)
[2019-05-31] MEDS: Docusate 100mg cap ORAL SCH (08:41)
[2019-05-31] MEDS: Carvedilol 25mg Tab ORAL SCH (08:42)
[2019-05-31 08:43] VITALS: BP 180/69
[2019-05-31] MEDS ORDERED: Levofloxacin 500mg tab ORAL SCH (09:00)
--- NOTE | 2019-05-31 10:05 | General Progress Note ---
Assessment/Plan Problem List: (1) ESRD (end stage renal disease) ICD Codes: N18.6 - End stage renal disease SNOMED: 79246338 (2) Black tarry stools ICD Codes: K92.1 - Melena SNOMED: 567455170 (3) leukopenia (4) Hypertensive kidney disease ICD Codes: I12.9 - Hypertensive chronic kidney disease with stage 1 through stage 4 chronic kidney disease, or unspecified chronic kidney disease SNOMED: 61300018 (5) Diabetic nephropathy with proteinuria ICD Codes: E11.21 - Type 2 diabetes mellitus with diabetic nephropathy SNOMED: 37222955, 744528224 (6) Anemia in chronic kidney disease (CKD) ICD Codes: N18.9 - Chronic kidney disease, unspecified; D63.1 - Anemia in chronic kidney disease SNOMED: 043807666 (7) Gastrointestinal hemorrhage ICD Codes: K92.2 - Gastrointestinal hemorrhage, unspecified SNOMED: 41590947 Qualifiers: Qualified Codes: K92.1 - Melena (8) ESRD on dialysis ICD Codes: N18.6 - End stage renal disease; Z99.2 - Dependence on renal dialysis SNOMED: 171741101 Status: progressing Assessment/Plan: moniter for gi bleed esrd on hd h/h is stable reviewed chart Subjective ROS Limited/Unobtainable: Yes Allergies: Coded Allergies: No Known Allergies (Unverified , 05/12/17) Objective Last 24 Hour Vital Signs Date Time Temp Pulse Resp B/P (MAP) Pulse Ox O2 Delivery O2 Flow Rate FiO2 05/31/19 09:04 Nasal Cannula 2.0 05/31/19 08:43 75 180/69 05/31/19 08:42 75 180/69 05/31/19 08:00 97.9 75 14 180/69 (106) 98 05/31/19 05:53 171/67 05/31/19 04:00 98.1 75 20 171/67 (101) 95 05/31/19 00:00 98.7 79 18 125/62 (83) 98 05/30/19 22:13 81 125/64 05/30/19 22:00 119/62 05/30/19 21:00 Room Air 05/30/19 20:00 98.7 81 18 123/64 (83) 99 05/30/19 16:00 98.1 73 18 175/71 (105) 97 05/30/19 13:53 159/56 05/30/19 12:03 70 18 100 05/30/19 12:02 68 18 100 05/30/19 12:00 97.7 71 13 134/58 (83) 99 05/30/19 11:05 98.0 72 15 159/69 100 Nasal Cannula 3 05/30/19 10:56 64 17 152/88 100 Nasal Cannula 3 05/30/19 10:46 69 14 167/54 100 Nasal Cannula 3 05/30/19 10:41 70 13 159/56 100 Nasal Cannula 3 05/30/19 10:36 97.3 68 18 149/68 100 Nasal Cannula 3 Intake and Output 05/30/19 05/31/19 19:00 07:00 Intake Total 100 ml 480 ml Output Total 3000 ml Balance -2900 ml 480 ml Intake Oral 480 ml IV Total 100 ml Hemodialysis UF 3000 ml # Voids 2 2 Height (Feet): 5 Height (Inches): 3.00 Weight (Pounds): 165 Cardiovascular: normal peripheral pulses, normal rate Respiratory/Chest: lungs clear Abdomen: soft Makenna Daniel MD May 31, 2019 10:05
--- NOTE | 2019-05-31 12:43 | NUR ---
NURSE NOTES: Patient discharged Home. Patient picked up via private ambulance. No IV. Patient accompanied by RN to lobby.
--- NOTE | 2019-05-31 13:28 | Nephrology Progress Note ---
Assessment/Plan Problem List: (1) ESRD on dialysis (2) Gastrointestinal hemorrhage (3) Anemia in chronic kidney disease (CKD) Assessment GI bleed likely upper- present with melena ESRD h/o Pulm Edema DM HTN Anemia B12 and Iron def CAD . Plan hadupper endoscopy next HD 06/01 as OP H&H stable- tolerates PO GI Eval noted Protonix , Carafate CXR BP meds- adjust HD scheduled for 05/30 Med-Surg Previously 2D Echo Ej Fx 50 % PACO: Hepatosplenomegaly. Question of medical renal disease. Small nonobstructive stone in the left kidney suspected. Cholelithiasis Subjective ROS Limited/Unobtainable: No Interval Events/Complaints seen 9.30 am Objective Objective Last 24 Hour Vital Signs Date Time Temp Pulse Resp B/P (MAP) Pulse Ox O2 Delivery O2 Flow Rate FiO2 05/31/19 09:04 Nasal Cannula 2.0 05/31/19 08:43 75 180/69 05/31/19 08:42 75 180/69 05/31/19 08:00 97.9 75 14 180/69 (106) 98 05/31/19 05:53 171/67 05/31/19 04:00 98.1 75 20 171/67 (101) 95 05/31/19 00:00 98.7 79 18 125/62 (83) 98 05/30/19 22:13 81 125/64 05/30/19 22:00 119/62 05/30/19 21:00 Room Air 05/30/19 20:00 98.7 81 18 123/64 (83) 99 05/30/19 16:00 98.1 73 18 175/71 (105) 97 05/30/19 13:53 159/56 Intake and Output 05/30/19 05/31/19 19:00 07:00 Intake Total 100 ml 480 ml Output Total 3000 ml Balance -2900 ml 480 ml Intake Oral 480 ml IV Total 100 ml Hemodialysis UF 3000 ml # Voids 2 2 Height (Feet): 5 Height (Inches): 3.00 Weight (Pounds): 165 General Appearance: no apparent distress Cardiovascular: normal rate Respiratory/Chest: lungs clear Abdomen: soft Objective no change Francis Falk MD May 31, 2019 13:28
--- NOTE | 2019-05-31 17:02 | Cardiology Report ---
APPROVED REPORT EKG Measurement Heart [id number] Normal sinus rhythm Prolonged QT Abnormal ECG
--- NOTE | 2019-05-31 17:40 | General Progress Note ---
Assessment/Plan Status: progressing Assessment/Plan: Assessment - Dark stools, ? due to po FE (but stools are OB +) - h/o gastritis (10/19) - again now - h/o colon adenoma x 2 (10/2018) - ERSD /HD Recommendations - PPI - follow CBC - Outpatient capsule endoscopy - patient advised to f/u Subjective Allergies: Coded Allergies: No Known Allergies (Unverified , 05/12/17) Subjective above noted feels OK for d/c today OB (+) x 2 d/w patient advised should undergo outpatient capsule endoscopy Objective Last 24 Hour Vital Signs Date Time Temp Pulse Resp B/P (MAP) Pulse Ox O2 Delivery O2 Flow Rate FiO2 05/31/19 09:04 Nasal Cannula 2.0 05/31/19 08:43 75 180/69 05/31/19 08:42 75 180/69 05/31/19 08:00 97.9 75 14 180/69 (106) 98 05/31/19 05:53 171/67 05/31/19 04:00 98.1 75 20 171/67 (101) 95 05/31/19 00:00 98.7 79 18 125/62 (83) 98 05/30/19 22:13 81 125/64 05/30/19 22:00 119/62 05/30/19 21:00 Room Air 05/30/19 20:00 98.7 81 18 123/64 (83) 99 Intake and Output 05/30/19 05/31/19 19:00 07:00 Intake Total 100 ml 480 ml Output Total 3000 ml Balance -2900 ml 480 ml Intake Oral 480 ml IV Total 100 ml Hemodialysis UF 3000 ml # Voids 2 2 Height (Feet): 5 Height (Inches): 3.00 Weight (Pounds): 165 Objective WDWN L woman NCAT supple CTA RR abd soft no edema Ramakrishna eLonard MD May 31, 2019 17:40
--- NOTE | 2019-06-01 13:57 | Discharge Summary ---
Discharge Summary Discharge Summary _ DATE OF ADMISSION: 05/27/2019 DATE OF DISCHARGE: 05/31/2019 DISCHARGED BY: REASON FOR ADMISSION: 69 years old female with past medical history of end-stage renal disease , on hemodialysis, CHF with diastolic dysfunction, hypertensive kidney disease, aortic stenosis, diabetes mellitus, coronary artery disease, anemia of chronic kidney disease, hepatosplenomegaly, respiratory failure requiring BiPAP, presented to emergency department with black tarry stools. Patient had a history of GI bleeding in the past and received transfusion at that time. Patient reported feeling weak and dizzy. Patient reported some epigastric discomfort. Pain initially reported as 5 out of 10 , then increased to 10 out of 10. Pain was poorly described , but no radiation reported. Upon evaluation vital signs were stable. Laboratory work-up revealed WBC 3.1, hemoglobin 12, hematocrit 36.5. Platelet count 213. Potassium 3.4 . BUN 21, creatinine 2.7. Glucose 147. Calcium 8.1. Stable LFT and lipase. Troponin - 0.017. Albumin 3.7. EKG revealed sinus rhythm, no acute ischemic changes. Chest x-ray demonstrated cardiomegaly , borderline interstitial congestion . In emergency department patient received Protonix , Zofran and morphine. Patient subsequently admitted for further management . CONSULTANTS: ID specialist Dr. Martin GI specialist Dr. Leonard assistant manager quality management Dr. Falk HOSPITAL COURSE: Patient admitted. Hemodialysis provided as per assistant manager quality management recommendations with close monitoring of volumes, renal parameters and electrolytes. Electrolytes corrected as needed. GI specialist followed. Stool for occult blood x2 was positive. Patient undergone upper endoscopy with biopsy, which revealed gastritis otherwise normal upper endoscopic examination. Biopsy of the antrum revealed superficial fragments of benign oxyntic gastric mucosa with changes. Suggestive of early fundic gland polyp. No H. pylori infection, no intestinal metaplasia, dysplasia, or malignancy. Hemoglobin and hematocrit were closely monitored with goal to keep hemoglobin above 7. Anemia work-up was suggestive of anemia of chronic disease. Prior to discharge hemoglobin 9.3 , hematocrit 28.2. Patient started on GI prophylaxis. Bowel regimen instituted Blood pressure was closely monitored and managed with hydralazine, remained stable. Levothyroxine continued. TSH WNL. Supportive care provided. Pain management was addressed as needed. Blood sugar was managed with sliding scale of insulin. Urine culture revealed E. coli ESBL and Strep group B. ID specialist recommended short term of treatment with antibiotics for 3 days. No further tarry stools. GI specialist recommended outpatient follow up for capsule endoscopy. Patient clinically stabilized and was ready for discharge home . FINAL DIAGNOSES: GI hemorrhage s/p EGD with biopsy Gastritis History of colon adenoma x2 ( October 2018) End-stage renal disease , on hemodialysis UTI with E. coli ESBL Anemia of chronic kidney disease Hypertension Diabetes mellitus with diabetic nephropathy with proteinuria Hyperlipidemia Hypothyroidism DISCHARGE MEDICATIONS: See Medication Reconciliation list. DISCHARGE INSTRUCTIONS: Patient was discharged home.. Follow up with primary care provider in one week. I have been assigned to dictate discharge summary for this account. I was not involved in the patient's management. Kaitlin Durán NP Jun 01, 2019 13:57
== END 2019-05-31 12:15 | disposition home or self-care (01) | DRG 377 ==
LOC: EMR 13:26 → 2E 13:29 → EDBEDREQ 15:45 → 2E 05-28 16:39 → 4E 05-29 18:26
PROC: 0DB78ZX Excision of Stomach, Pylorus, Via Natural or Artificial Opening Endoscopic, Diagnostic (ICD-10-PCS; principal; 2019-05-30 10:22)
PROC: 5A1D70Z Performance of Urinary Filtration, Intermittent, Less than 6 Hours Per Day (ICD-10-PCS; principal; 2019-05-30 10:22)
DX: K29.71 Gastritis, unspecified, with bleeding (principal); N18.6 End stage renal disease; I13.2 Hypertensive heart and chronic kidney disease with heart failure and with stage 5 chronic kidney disease, or end stage renal disease; I50.30 Unspecified diastolic (congestive) heart failure; N39.0 Urinary tract infection, site not specified; Z16.12 Extended spectrum beta lactamase (ESBL) resistance; Z99.2 Dependence on renal dialysis; B96.20 Unspecified Escherichia coli [E. coli] as the cause of diseases classified elsewhere; D63.1 Anemia in chronic kidney disease; E11.21 Type 2 diabetes mellitus with diabetic nephropathy; E78.5 Hyperlipidemia, unspecified; E03.9 Hypothyroidism, unspecified; R16.2 Hepatomegaly with splenomegaly, not elsewhere classified; G89.4 Chronic pain syndrome; K21.9 Gastro-esophageal reflux disease without esophagitis; K80.20 Calculus of gallbladder without cholecystitis without obstruction; I35.0 Nonrheumatic aortic (valve) stenosis
CPT/HCPCS: 36415; 71045; 74018; 80053; 80061; 81003; 82270; 82607; 82728; 82746; 82962; 82977; 83036; 83540; 83550; 83690; 83735; 83880; 84100; 84443; 84484; 85007; 85025; 85044; 85610; 85730; 86140; 86850; 86900; 86901; 87086; 87181; 93005; 94003; 94150; 96374; 96375; 99285; J1815; J2405

== ENCOUNTER 2019-06-04 12:04 | Inpatient (IN) | payer MEDICARE, MEDICAID ==
[~2019-06-04] VITALS: Ht 160 cm; Wt 75.7 kg
[~2019-06-04 12:04] MED LIST changes: +CALCIUM ACETAT667 M1 PO; +CARVEDILOL25 MG ORAL; +NIFEDIPINE ER90 M2 ORAL; +NOVOLIN R100 UNIT/1 SUBQ
--- NOTE | 2019-06-04 12:24 | NUR ---
ED Nurse Note: Pt came in from home due to dark tarry stool and abdominal pain with nausea x 10 days. Medial abdomen located, pain 5/10 at this time. Last bowel movement was today. Pt has hx of GI bleed. AOOx4, vital sign stable. NAD. Able to make needs known. Pt has dialysis on --, did NOT miss any dialysis, last one was on 06/03/19. Will cont to monitor.
[2019-06-04] MEDS ORDERED: Pantoprazole Inj IV ONE (12:30)
--- NOTE | 2019-06-04 12:35 | Emergency Room Report ---
History of Present Illness General Chief Complaint: Gastrointestinal Bleed Source: Patient Present Illness HPI Patient is a 69-year-old female who presented after increased generalized weakness and dizziness. Patient had prior history of end-stage renal disease. She is on dialysis. She was last dialyzed Thursday. Thursday and Thursday schedule. No recent fever. She had persistently black stool. She had recent endoscopy after episode of bleeding. She had noticed continued bleeding in her stools. She denies any bright red blood. She reports having some mild pain to her abdomen. Denies any alcohol use. Allergies: Coded Allergies: No Known Allergies (Unverified , 05/12/17) Patient History Past Medical History: see triage record Reviewed Nursing Documentation: PMH: Agreed; PSxH: Agreed Nursing Documentation-PMH Hx Cardiac Problems: Yes Hx Hypertension: Yes Hx Pacemaker: No Hx Asthma: Yes Hx COPD: No Hx Diabetes: Yes Hx Cancer: No Hx Gastrointestinal Problems: No Hx Dialysis: Yes - MWF Hx Neurological Problems: No Hx Transient Ischemic Attacks: Yes - ACUTE ISCHEMIC HEART DISEASE Hx Dementia: No Hx Alzheimer's Disease: No Hx Parkinson's Disease: No Hx Meningitis: No Hx Encephalitis: No Hx Seizures: No Hx Epilepsy: No Hx Multiple Sclerosis: No Hx Cerebral Palsy: No Hx Amyotrophic Lat Sclerosis: No Hx [place] Syndrome: No Hx Paralysis: No Hx Peripheral Neuropathy: No Hx Spinal Cord Injury: No Hx Head Trauma: No Hx Traumatic Brain Injury: No Hx Memory Loss: No Hx Concentration Difficulty: No Hx Speech Problem: No Hx Tremors: No Hx Vertigo: Yes Hx Dizziness: No Hx Syncope: No Hx Headaches: No Hx Aphasia: No Hx Dysphasia: No Hx Numbness: No Hx Weakness: Yes - MUSCLE WEAKNESS Hx Fatigue: No Hx Neurologic Surgery: No Hx Brain Shunt: No Review of Systems All Other Systems: negative except mentioned in HPI Physical Exam Vital Signs Date Time Temp Pulse Resp B/P (MAP) Pulse Ox O2 Delivery O2 Flow Rate FiO2 06/04/19 12:13 98.1 74 18 142/61 (88) 94 Room Air Sp02 EP Interpretation: reviewed, normal General Appearance: normal inspection, well appearing, no apparent distress, alert, GCS 15 Head: atraumatic ENT: normal ENT inspection, hearing grossly normal, normal voice Neck: normal inspection, full range of motion, supple, no bony tend Respiratory: normal inspection, no respiratory distress, no retraction, no wheezing Cardiovascular #1: regular rate, rhythm, no edema Gastrointestinal: normal inspection, normal bowel sounds, non tender, soft, no guarding, no hernia Genitourinary: no CVA tenderness Musculoskeletal: normal inspection, back normal, normal range of motion Neurologic: normal inspection, alert, responsive, speech normal Psychiatric: normal inspection, judgement/insight normal, mood/affect normal Medical Decision Making Diagnostic Impression: Primary Impression: Anemia in chronic kidney disease (CKD) Additional Impression: ESRD (end stage renal disease) ER Course Patient presented for generalized weakness and dizziness. She had some recent GI bleeding. Differential diagnosis include was not limited to anemia, pneumonia, urinary infection, myocardial infarction among others. Because of complexity of patient's case laboratory tests and imaging studies were ordered. EKG interpreted by me showed normal sinus rhythm with a rate of [address] changes. Patient's initial hemoglobin appeared to be similar to prior without any definite need for transfusion at this time. Dr. Makenna Faustin was contacted for inpatient management. Dr. Leonard saw the patient for GI consult Labs Test 06/04/19 12:30 White Blood Count 3.0 K/UL (4.8-10.8) Red Blood Count 2.88 M/UL (4.20-5.40) Hemoglobin 8.8 G/DL (12.0-16.0) Hematocrit 26.5 % (37.0-47.0) Mean Corpuscular Volume 92 FL (80-99) Mean Corpuscular Hemoglobin 30.7 PG (27.0-31.0) Mean Corpuscular Hemoglobin Concent 33.3 G/DL (32.0-36.0) Red Cell Distribution Width 13.2 % (11.6-14.8) Platelet Count 225 K/UL (150-450) Mean Platelet Volume 5.1 FL (6.5-10.1) Neutrophils (%) (Auto) % (45.0-75.0) Lymphocytes (%) (Auto) % (20.0-45.0) Monocytes (%) (Auto) % (1.0-10.0) Eosinophils (%) (Auto) % (0.0-3.0) Basophils (%) (Auto) % (0.0-2.0) Differential Total Cells Counted 100 Neutrophils % (Manual) 61 % (45-75) Lymphocytes % (Manual) 26 % (20-45) Monocytes % (Manual) 11 % (1-10) Eosinophils % (Manual) 2 % (0-3) Basophils % (Manual) 0 % (0-2) Band Neutrophils 0 % (0-8) Platelet Estimate Adequate Platelet Morphology Normal Hypochromasia 1+ Prothrombin Time 12.0 SEC (9.30-11.50) Prothromb Time International Ratio 1.1 (0.9-1.1) Activated Partial Thromboplast Time 30 SEC (23-33) Sodium Level 139 MMOL/L (136-145) Potassium Level 3.9 MMOL/L (3.5-5.1) Chloride Level 95 MMOL/L (98-107) Carbon Dioxide Level 39 MMOL/L (21-32) Anion Gap 5 mmol/L (5-15) Blood Urea Nitrogen 45 mg/dL (7-18) Creatinine 4.8 MG/DL (0.55-1.30) Estimat Glomerular Filtration Rate 9.0 mL/min (>60) Glucose Level 219 MG/DL (74-106) Calcium Level 7.5 MG/DL (8.5-10.1) Total Bilirubin 0.5 MG/DL (0.2-1.0) Aspartate Amino Transf (AST/SGOT) 14 U/L (15-37) Alanine Aminotransferase (ALT/SGPT) 9 U/L (12-78) Alkaline Phosphatase 82 U/L (46-116) Troponin I 0.044 ng/mL (0.000-0.056) Total Protein 7.2 G/DL (6.4-8.2) Albumin 3.6 G/DL (3.4-5.0) Globulin 3.6 g/dL Albumin/Globulin Ratio 1.0 (1.0-2.7) Lipase 110 U/L (73-393) EKG Diagnostic Results Rate: normal Rhythm: NSR ST Segments: no acute changes Rhythm Strip Diag. Results EP Interpretation: yes Rhythm: NSR, no PVC's, no ectopy Last Vital Signs Date Time Temp Pulse Resp B/P (MAP) Pulse Ox O2 Delivery O2 Flow Rate FiO2 06/04/19 12:13 98.1 74 18 142/61 (88) 94 Room Air Status: improved Disposition: ADMITTED INPATIENT Condition: Anuel Parson MD Jun 04, 2019 12:35
[2019-06-04 12:37] VITALS: BP 149/48
[2019-06-04 12:41] LABS: HEMATOCRIT 26.5 % (37.0-47.0); HEMOGLOBIN 8.8 G/DL (12.0-16.0); MEAN CORPUSCULAR VOLUME 92 FL (80-99); PLATELET COUNT 225 K/UL (150-450); RED BLOOD COUNT 2.88 M/UL (4.20-5.40); RED CELL DISTRIBUTION WIDTH 13.2 % (11.6-14.8)
--- NOTE | 2019-06-04 12:50 | NUR ---
ED Nurse Note: Mother Frances left contact: [phone]
[2019-06-04 12:51] LABS: INR 1.1 (0.9-1.1)
[2019-06-04 12:54] LABS: ALANINE AMINOTRANSFERASE 9 U/L (12-78); ALBUMIN 3.6 G/DL (3.4-5.0); ALKALINE PHOSPHATASE 82 U/L (46-116); ANION GAP 5 mmol/L (5-15); ASPARTATE AMINO TRANSFERASE 14 U/L (15-37); BILIRUBIN,TOTAL 0.5 MG/DL (0.2-1.0); BLOOD UREA NITROGEN 45 mg/dL (7-18); CALCIUM 7.5 MG/DL (8.5-10.1); CARBON DIOXIDE 39 MMOL/L (21-32); CHLORIDE 95 MMOL/L (98-107); CREATININE 4.8 MG/DL (0.55-1.30); POTASSIUM 3.9 MMOL/L (3.5-5.1); SODIUM 139 MMOL/L (136-145)
--- NOTE | 2019-06-04 13:14 | NUR ---
ED Nurse Note: Communicated with ERMD about Hgb 8.8, Dr. Lilly confirmed to hold on blood transfusion.
[2019-06-04 14:23] VITALS: BP 110/49
--- NOTE | 2019-06-04 14:32 | NUR ---
ED Nurse Note: Report given to SIDNEY Gamboa at ext [phone].
--- NOTE | 2019-06-04 15:00 | NUR ---
NURSE NOTES: Report received from SIDNEY Shelby. Pt. came on the floor via gurney. Was able to take steps to the bed. AOx4, Slovenian speaking however able to communicate in Lao. Belongings checked, signed and filed. administrative and program specialist applied. R AC 20g IV flushed SL. Pt started crying, consoled Pt. made comfortable in bed. Called family to relax Pt. Oriented to room.
[2019-06-04] MEDS: D5NS 1,000 ML IV SCH (16:20)
[2019-06-04] MEDS: Sucralfate 1gm tab ORAL SCH ×2 (18:00→21:14)
--- NOTE | 2019-06-04 19:30 | NUR ---
NURSE NOTES: Received report from SIDNEY Gamboa. Patient is awake,lying in semi welch's; resting comfortably. A/Ox4. Primarily Italian speaking. Able to make needs known. Denies pain at this time. No signs of distress noted. Checked IV site and flushed. No signs of erythema, bleeding or infiltration noted. AV fistula noted at the left upper arm. Bed at lowest position, brakes on, siderailsx2. Call light within reach. Will continue to monitor.
--- NOTE | 2019-06-04 19:50 | NUR ---
HAND-OFF: Report given to SIDNEY Romero. Pt. in stable condition. VS stable. Denies any pain or SOB. Plan of care endorsed.
[2019-06-04 20:00] VITALS: BP 138/56
[2019-06-04] MEDS: Pantoprazole Inj IVP SCH (21:15)
[2019-06-04] MEDS: HydrALAZINE 50mg tab ORAL SCH (21:15)
--- NOTE | 2019-06-04 23:28 | NUR ---
NURSE NOTES: Received new orders from Dr. Leonard, noted and carried out.
[2019-06-04] MEDS ORDERED: Sorbitol Solution UD 30ml ORAL ONE (23:30)
[2019-06-05] VITALS (8 sets, daily range): BP systolic 134–168; BP diastolic 52–86
--- NOTE | 2019-06-05 00:30 | Consultation ---
DATE OF CONSULTATION: 06/04/2019 GASTROENTEROLOGY CONSULTATION CONSULTING PHYSICIAN: Ramakrishna Leonard M.D. CHIEF COMPLAINT: I was asked to see this patient by Dr. Makenna Daniel for evaluation of gastrointestinal bleeding. HISTORY OF PRESENT ILLNESS: The patient is a 69-year-old woman, who was recently admitted and discharged from this hospital for gastrointestinal bleeding. I was called this morning since the patient has recurrent black stools and she feels lightheaded. She was sent to the emergency room and is being admitted for gastrointestinal bleeding. The patient did have a colonoscopy on the last admission showing some gastritis. Previous to that, the patient had an endoscopy and a colonoscopy in October of this year showing gastritis and some polyps and hemorrhoids. The polyps were removed and tissue showed tubular adenoma pathology. The patient previously was on iron on a daily basis and some of the dark stools are probably due to iron. However, at this point, she states she is off of iron. PAST MEDICAL HISTORY: History of end-stage renal disease on dialysis, hyperlipidemia, constipation, anemia of chronic disease, renal failure, history of chronic pain, [id number] diabetes mellitus, hypothyroidism, gastroesophageal reflux disease, gastritis, hemorrhoids, adenomatous colonic polyps, hypertension, status post , and status post hemodialysis access placement. FAMILY HISTORY: Positive for diabetes and hypertension. SOCIAL HISTORY: The patient has a known history of alcohol use, but not smoking. ALLERGIES: None. REVIEW OF SYSTEMS: Otherwise negative. PHYSICAL EXAMINATION: GENERAL: Pleasant woman seen in the emergency room. HEENT: Normocephalic and atraumatic. Sclerae are anicteric. Oropharynx is clear. NECK: Supple. CHEST: Clear to auscultation. CARDIAC: Revealed regular rate and rhythm. ABDOMEN: Soft with good bowel sounds. EXTREMITIES: Revealed no edema. ASSESSMENT: This patient presents with recurrent gastrointestinal bleeding of unclear source. The patient does have black stools, but her hematocrit may not be at baseline. She did feel dizzy and therefore some of her blood volume may be concentrated. She will need to undergo further gastrointestinal evaluation. She clearly needs a capsule endoscopy to evaluate the small bowel. However, she may benefit from repeat endoscopy and colonoscopy to once again demonstrate sources of occult gastrointestinal bleeding such as a [place]ulafoy lesion. This can be done early next week. RECOMMENDATIONS: 1. Admit to the hospital. 2. Clear liquid diet. 3. Gastrointestinal tract preparation. 4. Possible endoscopy and colonoscopy on Thursday. 5. Possible capsule endoscopy to follow after that. Thank you for asking me to participate in the care of this patient. Ramakrishna Leonard M.D. DR: KEY JOB#: [id number] CC: EDGAR
--- NOTE | 2019-06-05 01:00 | NUR ---
NURSE NOTES: Paged Dr. Daniel regarding patient's blood sugar of 267mg/dL. Awaiting for callback.
--- NOTE | 2019-06-05 01:30 | NUR ---
NURSE NOTES: Paged Dr. Daniel again regarding patient's blood sugar. Awaiting for callback.
--- NOTE | 2019-06-05 03:08 | NUR ---
NURSE NOTES: Resting throughout the night. No significant change of condition noted. Will continue to monitor.
[2019-06-05] MEDS: HydrALAZINE 50mg tab ORAL SCH ×3 (06:41→22:25)
[2019-06-05 06:50] LABS: HEMOGLOBIN 7.3 G/DL (12.0-16.0); MEAN CORPUSCULAR VOLUME 92 FL (80-99); PLATELET COUNT 189 K/UL (150-450); RED BLOOD COUNT 2.38 M/UL (4.20-5.40); RED CELL DISTRIBUTION WIDTH 13.1 % (11.6-14.8); WHITE BLOOD COUNT 2.7 K/UL (4.8-10.8)
--- NOTE | 2019-06-05 07:15 | NUR ---
NURSE NOTES: Report received from SIDNEY Romero. Pt. sleeping comfortably. No breathing distress noted. Bed on lowest position, side rails upx2, brakes engaged. Call light within easy reach.
--- NOTE | 2019-06-05 07:15 | NUR ---
HAND-OFF: Report given to SIDNEY Gamboa. Plan of care endorsed.
[2019-06-05 07:26] LABS: ALANINE AMINOTRANSFERASE < 6 U/L (12-78); ALBUMIN 3.2 G/DL (3.4-5.0); ALKALINE PHOSPHATASE 67 U/L (46-116); ANION GAP 6 mmol/L (5-15); ASPARTATE AMINO TRANSFERASE 9 U/L (15-37); BILIRUBIN,TOTAL 0.4 MG/DL (0.2-1.0); BLOOD UREA NITROGEN 53 mg/dL (7-18); CALCIUM 7.1 MG/DL (8.5-10.1); CARBON DIOXIDE 35 MMOL/L (21-32); CHLORIDE 99 MMOL/L (98-107); CHOLESTEROL 123 MG/DL (< 200); CREATININE 5.6 MG/DL (0.55-1.30); FERRITIN 634 NG/ML (8-388); GAMMA GLUTAMYL TRANSPEPTIDASE 28 U/L (5-85); HDL CHOLESTEROL 33 MG/DL (40-60); POTASSIUM 4.1 MMOL/L (3.5-5.1); SODIUM 140 MMOL/L (136-145); TRIGLYCERIDES 149 MG/DL (30-150)
[2019-06-05 07:50] LABS: % IRON SATURATION 37 % (15-50); IRON 71 ug/dL (50-175); TOTAL IRON BINDING CAPACITY 193 ug/dL (250-450)
--- NOTE | 2019-06-05 08:09 | Consultation ---
History of Present Illness General Chief Complaint: Gastrointestinal Bleed Present Illness Allergies: Coded Allergies: No Known Allergies (Unverified , 05/12/17) Medication History Scheduled Amlodipine Besylate (Norvasc), 10 MG ORAL DAILY Aspirin* (Aspirin*), 81 MG ORAL DAILY Atorvastatin Calcium* (Lipitor*), 10 MG ORAL BEDTIME Calcium Acetate (Calcium Acetate), 1,334 MG PO TID, (Reported) Calcium Acetate (Calcium Acetate), 667 MG PO BID, (Reported) Carvedilol* (Carvedilol*), 25 MG ORAL DAILY, (Reported) Docusate Sodium* (Colace*), 100 MG ORAL TID Ezetimibe (Zetia*), 10 MG ORAL DAILY, (Reported) Gabapentin (Neurontin), 300 MG ORAL Q8HR Insulin Detemir (Levemir), 40 UNITS SUBQ DAILY, (Reported) Insulin Regular, Human* (Novolin R*), 10 UNITS SUBQ QHS, (Reported) Isosorbide Mononitrate (Isosorbide Mononitrate Er), 60 MG PO DAILY, (Reported) Labetalol HCl (Labetalol HCl), 100 MG ORAL BID, (Reported) Levothyroxine Sodium (Levothyroxine Sodium), 137 MCG ORAL DAILY, (Reported) Montelukast Sodium* (Montelukast Sodium*), 10 MG ORAL QPM Nifedipine Er* (Nifedipine Er*), 90 MG ORAL DAILY, (Reported) Scheduled PRN Hydralazine HCl (Hydralazine HCl), 25 MG PO Q6HR PRN for prn, (Reported) Discontinued Medications Atorvastatin Calcium* (Atorvastatin Calcium*), 80 MG ORAL BEDTIME, (Reported) Discontinued Reason: Medication dose changed Furosemide* (Lasix*), 20 MG ORAL BID, (Reported) Discontinued Reason: Pt stopped taking med Insulin Regular, Human (Humulin R), 0 SUBQ, (Reported) Discontinued Reason: Therapy completed Levothyroxine Sodium* (Synthroid*), 100 MCG ORAL DAILY@0630 Discontinued Reason: Therapy completed Nifedipine (Nifedipine*), 90 MG ORAL DAILY, (Reported) Discontinued Reason: Prescription changed Patient History Healthcare decision maker Resuscitation status Advanced Directive on File Physical Exam Last 24 Hour Vital Signs Date Time Temp Pulse Resp B/P (MAP) Pulse Ox O2 Delivery O2 Flow Rate FiO2 06/05/19 06:41 159/82 06/05/19 04:00 98.3 84 19 159/82 (107) 96 06/05/19 04:00 70 06/05/19 00:00 98.2 81 19 134/86 (102) 95 06/05/19 00:00 76 06/04/19 21:15 138/56 06/04/19 21:00 Nasal Cannula 2.0 06/04/19 20:00 72 06/04/19 20:00 97.7 79 18 138/56 (83) 100 06/04/19 16:00 80 06/04/19 15:09 Nasal Cannula 1.0 06/04/19 14:32 98.1 76 20 110/49 99 Room Air 06/04/19 14:23 98.1 76 20 110/49 99 Room Air 06/04/19 12:37 98.1 72 17 149/48 95 Room Air 06/04/19 12:34 74 18 Room Air 06/04/19 12:13 98.1 74 18 142/61 (88) 94 Room Air Intake and Output 06/04/19 06/05/19 19:00 07:00 Intake Total 560 ml 60 ml Balance 560 ml 60 ml Intake Oral 60 ml IV Total 500 ml Other 60 ml # Voids 1 2 # Bowel Movements 1 3 Laboratory Tests Test 06/04/19 12:30 06/05/19 06:04 White Blood Count 3.0 K/UL (4.8-10.8) L 2.7 K/UL (4.8-10.8) L Red Blood Count 2.88 M/UL (4.20-5.40) L 2.38 M/UL (4.20-5.40) L Hemoglobin 8.8 G/DL (12.0-16.0) L 7.3 G/DL (12.0-16.0) L Hematocrit 26.5 % (37.0-47.0) L 22.0 % (37.0-47.0) L Mean Corpuscular Volume 92 FL (80-99) 92 FL (80-99) Mean Corpuscular Hemoglobin 30.7 PG (27.0-31.0) 30.8 PG (27.0-31.0) Mean Corpuscular Hemoglobin Concent 33.3 G/DL (32.0-36.0) 33.3 G/DL (32.0-36.0) Red Cell Distribution Width 13.2 % (11.6-14.8) 13.1 % (11.6-14.8) Platelet Count 225 K/UL (150-450) 189 K/UL (150-450) Mean Platelet Volume 5.1 FL (6.5-10.1) L 6.0 FL (6.5-10.1) L Neutrophils (%) (Auto) % (45.0-75.0) % (45.0-75.0) Lymphocytes (%) (Auto) % (20.0-45.0) % (20.0-45.0) Monocytes (%) (Auto) % (1.0-10.0) % (1.0-10.0) Eosinophils (%) (Auto) % (0.0-3.0) % (0.0-3.0) Basophils (%) (Auto) % (0.0-2.0) % (0.0-2.0) Differential Total Cells Counted 100 Neutrophils % (Manual) 61 % (45-75) Pending Lymphocytes % (Manual) 26 % (20-45) Pending Monocytes % (Manual) 11 % (1-10) H Eosinophils % (Manual) 2 % (0-3) Basophils % (Manual) 0 % (0-2) Band Neutrophils 0 % (0-8) Platelet Estimate Adequate Pending Platelet Morphology Normal Pending Hypochromasia 1+ Prothrombin Time 12.0 SEC (9.30-11.50) H Prothromb Time International Ratio 1.1 (0.9-1.1) Activated Partial Thromboplast Time 30 SEC (23-33) Sodium Level 139 MMOL/L (136-145) 140 MMOL/L (136-145) Potassium Level 3.9 MMOL/L (3.5-5.1) 4.1 MMOL/L (3.5-5.1) Chloride Level 95 MMOL/L (98-107) L 99 MMOL/L (98-107) Carbon Dioxide Level 39 MMOL/L (21-32) H 35 MMOL/L (21-32) H Anion Gap 5 mmol/L (5-15) 6 mmol/L (5-15) Blood Urea Nitrogen 45 mg/dL (7-18) H 53 mg/dL (7-18) H Creatinine 4.8 MG/DL (0.55-1.30) H 5.6 MG/DL (0.55-1.30) H Estimat Glomerular Filtration Rate 9.0 mL/min (>60) 7.5 mL/min (>60) Glucose Level 219 MG/DL (74-106) H 151 MG/DL (74-106) H Calcium Level 7.5 MG/DL (8.5-10.1) L 7.1 MG/DL (8.5-10.1) L Total Bilirubin 0.5 MG/DL (0.2-1.0) 0.4 MG/DL (0.2-1.0) Aspartate Amino Transf (AST/SGOT) 14 U/L (15-37) L 9 U/L (15-37) L Alanine Aminotransferase (ALT/SGPT) 9 U/L (12-78) L < 6 U/L (12-78) L Alkaline Phosphatase 82 U/L (46-116) 67 U/L (46-116) Troponin I 0.044 ng/mL (0.000-0.056) 0.038 ng/mL (0.000-0.056) Total Protein 7.2 G/DL (6.4-8.2) 6.4 G/DL (6.4-8.2) Albumin 3.6 G/DL (3.4-5.0) 3.2 G/DL (3.4-5.0) L Globulin 3.6 g/dL 3.2 g/dL Albumin/Globulin Ratio 1.0 (1.0-2.7) 1.0 (1.0-2.7) Lipase 110 U/L (73-393) Hemoglobin A1c 6.2 % (4.3-6.0) H Uric Acid 5.1 MG/DL (2.6-7.2) Phosphorus Level 5.0 MG/DL (2.5-4.9) H Magnesium Level 1.8 MG/DL (1.8-2.4) Iron Level 71 ug/dL (50-175) Total Iron Binding Capacity 193 ug/dL (250-450) L Percent Iron Saturation 37 % (15-50) Unsaturated Iron Binding 122 ug/dL (112-346) Ferritin 634 NG/ML (8-388) H Gamma Glutamyl Transpeptidase 28 U/L (5-85) C-Reactive Protein, Quantitative < 0.4 mg/dL (0.00-0.90) Pro-B-Type Natriuretic Peptide 25713 pg/mL (0-125) H Triglycerides Level 149 MG/DL (30-150) Cholesterol Level 123 MG/DL (< 200) LDL Cholesterol 65 mg/dL (<100) HDL Cholesterol 33 MG/DL (40-60) L Cholesterol/HDL Ratio 3.7 (3.3-4.4) Vitamin B12 Level 372 PG/ML (193-986) Folate 10.7 NG/ML (8.6-58.9) Thyroid Stimulating Hormone (TSH) 4.819 uiU/mL (0.358-3.740) Height (Feet): 5 Height (Inches): 3.00 Weight (Pounds): 155 Medications Current Medications Medications (Trade) Dose Ordered Sig/Toya Route PRN Reason Start Time Stop Time Status Last Admin Dose Admin Dextrose (Dextrose 50%) 25 ml Q30M PRN IV Hypoglycemia 06/04/19 17:15 07/04/19 17:14 Dextrose (Dextrose 50%) 50 ml Q30M PRN IV Hypoglycemia 06/04/19 17:15 07/04/19 17:14 Dextrose/Sodium Chloride 1,000 ml @ 50 mls/hr Q20H IV 06/04/19 15:30 07/04/19 15:29 06/04/19 16:20 Gabapentin (Neurontin) 200 mg THREE TIMES A DAY ORAL 06/04/19 18:00 07/04/19 17:59 06/04/19 18:56 Hydralazine HCl (Apresoline) 10 mg Q4H PRN IV bp over 165 syst 06/04/19 15:45 07/04/19 15:44 Hydralazine HCl (Apresoline) 50 mg Q8HR ORAL 06/04/19 22:00 07/04/19 21:59 06/05/19 06:41 Levothyroxine Sodium (Synthroid) 50 mcg DAILY IV 06/05/19 09:00 07/05/19 08:59 Pantoprazole (Protonix) 40 mg EVERY 12 HOURS IVP 06/04/19 21:00 12/2/19 20:59 06/04/19 21:15 Polyethylene Glycol/ Electrolytes (Nulytely) 4,000 ml ONCE ONCE ORAL 06/05/19 09:00 06/05/19 09:01 Sucralfate (Carafate) 1 gm FOUR TIMES A DAY ORAL 06/04/19 18:00 07/04/19 17:59 06/04/19 21:14 Assessment/Plan Assessment/Plan: HEMATOLOGY/ONCOLOGY CONSULTATION REQUESTING PHYSICIAN: Makenna Faustin M.D. DOS: 06/05/19 REASON FOR CONSULTATION: Anemia. hx Leukopenia, low b12 level IDENTIFYING DATA: Dear Dr. Faustin, 69 -year-old female with past medical history significant for end-stage renal disease, on hemodialysis three times a week, completed dialysis 06/03, but had ongoing fatigue and shortness of breath, and with black tarry stool admitted through er for generalized weakness, is georgian speaking. She reported no current loss of consciousness. No pulmonary embolism. No fever, no chills, no night sweats reported. Hgb was 8.8, vitals stable. Heme now consulted. PAST MEDICAL HISTORY: As noted above. MEDICATIONS: Reviewed. ALLERGIES: No known drug allergies. REVIEW OF SYSTEMS: CONSTITUTIONAL: No fever, chills, or night sweats. SKIN: No rashes, bumps, or itching. HEENT: No headache, hearing or vision changes. BREASTS: No lumps, pain, or discharge. PULMONARY: No cough, sputum, or shortness of breath. GASTROINTESTINAL: No nausea, vomiting, or diarrhea. GENITOURINARY: No dysuria, frequency, or urgency. MUSCULOSKELETAL: No joint swelling, muscle pain, or trauma. PHYSICAL EXAMINATION: VITAL SIGNS: Reviewed. GENERAL: No distress. PULMONARY: Decreased breath sounds. ++ nc CARDIOVASCULAR: Regular rate. No S3 or S4. ABDOMEN: Soft, nontender, and nondistended. EXTREMITIES: No cyanosis, swelling, or edema. ++ Left AVS Labs: noted above Imaging: noted Assessment/Plan 1. Anemia due to underlying chronic disease. Have reviewed prior workup, ferritin is >1000, though percent saturation Tsat <30, but not recommended for further iron --> Continue to closely monitor. --> Transfuse if hgb <7 --> if ferritin <500, give iron suppl --> give epogen, has been started 3x a week --> as per renal --> monitor for gi bleed, gi consulted 2. Leukopenia likely reactive process v infection v from meds --> hepatitis and hiv prior negative --> neutropenic precautions if ANC <1500 --> trending stable --> imaging reviewed and no hsm / cirrhosis noted --> wbc 2.7 --> ANC goal >1500 3. End-stage renal disease, on hemodialysis three times a week. --> renal consulted --> continue hd 4. History of coronary artery disease. --> cards reviewed --> diuresis prn 5. History of anemia due to low B12, low iron --> b12 is currently within normal limits --> reobtain q6mo 6. Dizziness and unsteady gait 7. DVt ppsx with SCDs Greatly appreciate consultation and Selvin LITTLE am. Carl Daniels MD Jun 05, 2019 08:09
[2019-06-05] MEDS ORDERED: Nulytely 4L ORAL ONE (09:00)
[2019-06-05] MEDS: Pantoprazole Inj IVP SCH ×2 (09:16→20:47)
[2019-06-05] MEDS: Sucralfate 1gm tab ORAL SCH (09:16)
--- NOTE | 2019-06-05 11:21 | General Progress Note ---
Assessment/Plan Assessment/Plan: GI CONSULT Dictated ATSP for recurrent GI Bleed Will arrange for EGD/Colon Thursday and capsule endoscopy Thursday Thank you Ramakrishna Leonard MD Subjective Allergies: Coded Allergies: No Known Allergies (Unverified , 05/12/17) Objective Last 24 Hour Vital Signs Date Time Temp Pulse Resp B/P (MAP) Pulse Ox O2 Delivery O2 Flow Rate FiO2 06/05/19 09:00 Nasal Cannula 2.0 06/05/19 08:00 97.8 75 18 136/52 (80) 94 06/05/19 08:00 72 06/05/19 06:41 159/82 06/05/19 04:00 98.3 84 19 159/82 (107) 96 06/05/19 04:00 70 06/05/19 00:00 98.2 81 19 134/86 (102) 95 06/05/19 00:00 76 06/04/19 21:15 138/56 06/04/19 21:00 Nasal Cannula 2.0 06/04/19 20:00 72 06/04/19 20:00 97.7 79 18 138/56 (83) 100 06/04/19 16:00 80 06/04/19 15:09 Nasal Cannula 1.0 06/04/19 14:32 98.1 76 20 110/49 99 Room Air 06/04/19 14:23 98.1 76 20 110/49 99 Room Air 06/04/19 12:37 98.1 72 17 149/48 95 Room Air 06/04/19 12:34 74 18 Room Air 06/04/19 12:13 98.1 74 18 142/61 (88) 94 Room Air Intake and Output 06/04/19 06/05/19 19:00 07:00 Intake Total 560 ml 60 ml Balance 560 ml 60 ml Intake Oral 60 ml IV Total 500 ml Other 60 ml # Voids 1 2 # Bowel Movements 1 3 Laboratory Tests 06/04/19 12:30: White Blood Count 3.0L, Red Blood Count 2.88L, Hemoglobin 8.8L, Hematocrit 26.5L , Mean Corpuscular Volume 92, Mean Corpuscular Hemoglobin 30.7, Mean Corpuscular Hemoglobin Concent 33.3, Red Cell Distribution Width 13.2, Platelet Count 225, Mean Platelet Volume 5.1L, Neutrophils (%) (Auto) , Lymphocytes (%) ( Auto) , Monocytes (%) (Auto) , Eosinophils (%) (Auto) , Basophils (%) (Auto) , Differential Total Cells Counted 100, Neutrophils % (Manual) 61, Lymphocytes % ( Manual) 26, Monocytes % (Manual) 11H, Eosinophils % (Manual) 2, Basophils % ( Manual) 0, Band Neutrophils 0, Platelet Estimate Adequate, Platelet Morphology Normal, Hypochromasia 1+, Prothrombin Time 12.0H, Prothromb Time International Ratio 1.1, Activated Partial Thromboplast Time 30, Sodium Level 139, Potassium Level 3.9, Chloride Level 95L, Carbon Dioxide Level 39H, Anion Gap 5, Blood Urea Nitrogen 45H, Creatinine 4.8H, Estimat Glomerular Filtration Rate 9.0, Glucose Level 219H, Calcium Level 7.5L, Total Bilirubin 0.5, Aspartate Amino Transf (AST/SGOT) 14L, Alanine Aminotransferase (ALT/SGPT) 9L, Alkaline Phosphatase 82, Troponin I 0.044, Total Protein 7.2, Albumin 3.6, Globulin 3.6, Albumin/Globulin Ratio 1.0, Lipase 110 06/05/19 06:04: White Blood Count 2.7L, Red Blood Count 2.38L, Hemoglobin 7.3L, Hematocrit 22.0L , Mean Corpuscular Volume 92, Mean Corpuscular Hemoglobin 30.8, Mean Corpuscular Hemoglobin Concent 33.3, Red Cell Distribution Width 13.1, Platelet Count 189, Mean Platelet Volume 6.0L, Neutrophils (%) (Auto) , Lymphocytes (%) ( Auto) , Monocytes (%) (Auto) , Eosinophils (%) (Auto) , Basophils (%) (Auto) , Differential Total Cells Counted 100, Neutrophils % (Manual) 57, Lymphocytes % ( Manual) 27, Monocytes % (Manual) 11H, Eosinophils % (Manual) 5H, Basophils % ( Manual) 0, Band Neutrophils 0, Platelet Estimate Adequate, Platelet Morphology Normal, Hypochromasia 1+, Sodium Level 140, Potassium Level 4.1, Chloride Level 99, Carbon Dioxide Level 35H, Anion Gap 6, Blood Urea Nitrogen 53H, Creatinine 5.6H, Estimat Glomerular Filtration Rate 7.5, Glucose Level 151H, Calcium Level 7.1L, Total Bilirubin 0.4, Aspartate Amino Transf (AST/SGOT) 9L, Alanine Aminotransferase (ALT/SGPT) < 6L, Alkaline Phosphatase 67, Troponin I 0.038, Total Protein 6.4, Albumin 3.2L, Globulin 3.2, Albumin/Globulin Ratio 1.0, Hemoglobin A1c 6.2H, Uric Acid 5.1, Phosphorus Level 5.0H, Magnesium Level 1.8, Iron Level 71, Total Iron Binding Capacity 193L, Percent Iron Saturation 37, Unsaturated Iron Binding 122, Ferritin 634H, Gamma Glutamyl Transpeptidase 28, C -Reactive Protein, Quantitative < 0.4, Pro-B-Type Natriuretic Peptide 96193Q, Triglycerides Level 149, Cholesterol Level 123, LDL Cholesterol 65, HDL Cholesterol 33L, Cholesterol/HDL Ratio 3.7, Vitamin B12 Level 372, Folate 10.7, Thyroid Stimulating Hormone (TSH) 4.819H Height (Feet): 5 Height (Inches): 3.00 Weight (Pounds): 155 Ramakrishna Leonard MD Jun 05, 2019 11:21
[2019-06-05] MEDS: Docusate 100mg cap ORAL SCH ×3 (13:00→18:00)
--- NOTE | 2019-06-05 14:24 | Consultation ---
Consult Note Consult Note 69Y old- under mycare for dialysis related issues came to ER for Melena and epigastric pain ER: Patient is a 69-year-old female who presented after increased generalized weakness and dizziness. Patient had prior history of end-stage renal disease. She is on dialysis. She was last dialyzed Thursday. Thursday and Thursday schedule. No recent fever. She had persistently black stool. She had recent endoscopy after episode of bleeding. She had noticed continued bleeding in her stools. She denies any bright red blood. She reports having some mild pain to her abdomen. Denies any alcohol use. in Tele examined data reviewed GI bleed present with melena, worsening Anemia ESRD h/o Pulm Edema DM HTN Anemia B12 and Iron def CAD . Assessment/Plan NPO GI Eval Protonix IV BP meds- HD as needed Previously 2D Echo Ej Fx 50 % PACO: Hepatosplenomegaly. Question of medical renal disease. Small nonobstructive stone in the left kidney suspected. Cholelithiasis Francis Falk MD Jun 05, 2019 14:24
--- NOTE | 2019-06-05 15:20 | NUR ---
NURSE NOTES: Per Dr. Daniels, 1 unit of PRBC transfusion started. T 97.5, RR 18, BP 137/62, P 75, O2 94% RA.
--- NOTE | 2019-06-05 15:47 | General Progress Note ---
Assessment/Plan Assessment/Plan: Assessment - Heme (+) stools - anemia - recurrent GI Bleed - colon polyps - gastritis - hemorrhoids - ESRD / HD Recommendations - Clear liquid - GI Prep - EGD / push entero / colon in am - capsule endo Thursday Subjective Allergies: Coded Allergies: No Known Allergies (Unverified , 05/12/17) Subjective seen yesterday in ER and earlier this am (+) dark stool drinking Golytely for EGD/Push enteroscopy/colonoscopy in am Objective Last 24 Hour Vital Signs Date Time Temp Pulse Resp B/P (MAP) Pulse Ox O2 Delivery O2 Flow Rate FiO2 06/05/19 14:14 145/55 06/05/19 09:00 Nasal Cannula 2.0 06/05/19 08:00 97.8 75 18 136/52 (80) 94 06/05/19 08:00 72 06/05/19 06:41 159/82 06/05/19 04:00 98.3 84 19 159/82 (107) 96 06/05/19 04:00 70 06/05/19 00:00 98.2 81 19 134/86 (102) 95 06/05/19 00:00 76 06/04/19 21:15 138/56 06/04/19 21:00 Nasal Cannula 2.0 06/04/19 20:00 72 06/04/19 20:00 97.7 79 18 138/56 (83) 100 06/04/19 16:00 80 Intake and Output 06/04/19 06/05/19 19:00 07:00 Intake Total 560 ml 60 ml Balance 560 ml 60 ml Intake Oral 60 ml IV Total 500 ml Other 60 ml # Voids 1 2 # Bowel Movements 1 3 Laboratory Tests 06/05/19 06:04: White Blood Count 2.7L, Red Blood Count 2.38L, Hemoglobin 7.3L, Hematocrit 22.0L , Mean Corpuscular Volume 92, Mean Corpuscular Hemoglobin 30.8, Mean Corpuscular Hemoglobin Concent 33.3, Red Cell Distribution Width 13.1, Platelet Count 189, Mean Platelet Volume 6.0L, Neutrophils (%) (Auto) , Lymphocytes (%) ( Auto) , Monocytes (%) (Auto) , Eosinophils (%) (Auto) , Basophils (%) (Auto) , Differential Total Cells Counted 100, Neutrophils % (Manual) 57, Lymphocytes % ( Manual) 27, Monocytes % (Manual) 11H, Eosinophils % (Manual) 5H, Basophils % ( Manual) 0, Band Neutrophils 0, Platelet Estimate Adequate, Platelet Morphology Normal, Hypochromasia 1+, Sodium Level 140, Potassium Level 4.1, Chloride Level 99, Carbon Dioxide Level 35H, Anion Gap 6, Blood Urea Nitrogen 53H, Creatinine 5.6H, Estimat Glomerular Filtration Rate 7.5, Glucose Level 151H, Hemoglobin A1c 6.2H, Uric Acid 5.1, Calcium Level 7.1L, Phosphorus Level 5.0H, Magnesium Level 1.8, Iron Level 71, Total Iron Binding Capacity 193L, Percent Iron Saturation 37, Unsaturated Iron Binding 122, Ferritin 634H, Total Bilirubin 0.4 , Gamma Glutamyl Transpeptidase 28, Aspartate Amino Transf (AST/SGOT) 9L, Alanine Aminotransferase (ALT/SGPT) < 6L, Alkaline Phosphatase 67, Troponin I 0.038, C-Reactive Protein, Quantitative < 0.4, Pro-B-Type Natriuretic Peptide 29165G, Total Protein 6.4, Albumin 3.2L, Globulin 3.2, Albumin/Globulin Ratio 1.0, Triglycerides Level 149, Cholesterol Level 123, LDL Cholesterol 65, HDL Cholesterol 33L, Cholesterol/HDL Ratio 3.7, Vitamin B12 Level 372, Folate 10.7, Thyroid Stimulating Hormone (TSH) 4.819H Height (Feet): 5 Height (Inches): 3.00 Weight (Pounds): 155 Objective WDWN NCAT supple CTA RRR abd soft no edema Ramakrishna Leonard MD Jun 05, 2019 15:47
--- NOTE | 2019-06-05 17:24 | NUR ---
CASE MANAGEMENT: INITIAL REVIEW 69 YO F PRESENTED TO OUR ED FROM HOME CC: DARK COLORED STOOLS PMHx: ESRD ON HD. CHF. DM. HTN. SI:DARK STOOLS T 98.1 HR 74 RR 18 B/P 142/61 SATS 94% ON RA LABS: WBC 3 CL 95 CO2 35 BUN 45 CR 4.8 GLU 219 CA 7.5 AST 14 ALT 9 IS: PROTONIX IV X1 NS BOLUS X1 PATIENT ADMITTED TO TELE 06/04/2019 @ 7553 DCP: PATIENT TO BE DISCHARGED TO HOME ONCE MEDICALLY CLEARED PLAN OF CARE: TRANSFUSE PRN CLD GI CONSULT EGD/COLONOSCOPY Addendum: 06/05/19 at 2039 by Heather Wilcox CM INTERQUAL MET
--- NOTE | 2019-06-05 18:40 | NUR ---
NURSE NOTES: Blood transfusion done. No adverse effect. VS T 98.0, O2 sat 95%, RR18, BP 155/57, P 86. Pt. laying in bed. Denies any pain, itching, SOB. IV hydration started. Call light placed within easy reach.
[2019-06-05] MEDS: D5NS 1,000 ML IV SCH (18:46)
--- NOTE | 2019-06-05 19:25 | NUR ---
NURSE NOTES: Received report from SIDNEY Gamboa. Patient is awake, lying in semi-welch's; resting comfortably. A/0x4. Primarily Hong Konger speaking. Able to make needs known. Denies pain at this time. No signs of acute distress noted. Checked IV site and flushed. No erythema, bleeding or infiltration noted. Bed at lowest position, brakes on, siderailsx2. Will continue to monitor.
--- NOTE | 2019-06-05 19:30 | NUR ---
HAND-OFF: Report given to SIDNEY Romero. Pt. VS stable. Blood transfusion has been done. No transfusion reaction. Pt. on IVF at this time..
--- NOTE | 2019-06-05 19:30 | NUR ---
NURSE NOTES: Received report from SIDNEY Gamboa. Patient is awake, lying in semi welch's; resting comfortably. A/Ox4. Primarily Sinhala speaking. Able to make needs known. Checked IV site and flushed. No erythema, bleeding or infiltration noted. Bed at lowest position, brakes on, siderailsx2. Call light within reach. Will continue to monitor. Addendum: 06/06/19 at 0048 by Heather Casas RN Double entry
[2019-06-05] MEDS ORDERED: Sorbitol Solution UD 30ml ORAL SCH (20:00)
--- NOTE | 2019-06-05 20:00 | History and Physical Report ---
DATE OF ADMISSION: 06/04/2019 HISTORY OF PRESENT ILLNESS: The patient is here for black stools, melena, as well as gastrointestinal bleeding. . The patient has end-stage renal disease on dialysis. The patient did have some nausea, but no vomiting. Denies constipation. Denies shortness of breath. Denies cough. Denies chills. PAST MEDICAL HISTORY: End-stage renal disease, on hemodialysis, hyperlipidemia, history of constipation, hypertension, NIDDM, hypothyroidism, and COPD. PAST SURGICAL HISTORY: and also related to dialysis on the left forearm. ALLERGIES: No known allergies. MEDICATIONS: Lipitor, Coreg, Colace, aspirin, hydralazine, insulin, isosorbide, Levoxyl, montelukast. FAMILY HISTORY: Noncontributory. SOCIAL HISTORY: Denies history of alcohol or illicit drugs. Does have history of smoking. REVIEW OF SYSTEMS: CONSTITUTIONAL: Denies headaches. RESPIRATORY: Denies shortness of breath. Denies cough. CARDIOVASCULAR: Denies chest pain or orthopnea. GASTROINTESTINAL: Reported nausea, no vomiting, and also black tarry stools for the past couple of days. EXTREMITIES: Denies pain in the lower extremities. CENTRAL NERVOUS SYSTEM: Denies change in speech pattern. Feels weak. PHYSICAL EXAMINATION: VITAL SIGNS: Temperature 98.2, pulse is 81, blood pressure 134/86. HEENT: PERRLA. NECK: Supple. No lymphadenopathy. CHEST: Clear to auscultation. CARDIOVASCULAR: Regular rate and rhythm. No murmurs or extra sounds. GASTROINTESTINAL: Soft, nontender, and nondistended. No organomegaly. EXTREMITIES: No edema. Moves all four extremities. NEUROLOGIC: Sensory is intact to light touch. Reflexes on both sides. LABORATORY DATA: WBC of 3, hemoglobin of 8.8, and platelets of 225. Sodium 139, potassium 3.9, BUN of 45, creatinine 4.8, and glucose of 219. ASSESSMENT AND PLAN: Rule out upper gastrointestinal bleed. Dr. Leonard has been consulted for the black stools and Dr. Falk has been consulted for end-stage renal disease and for hemodialysis orders as well as Dr. Carl Daniels has been consulted for the anemia as well as for the low blood cells and transfusion with Dr. Carl Daniels. Ali Thien Daniel DR: ERNESTO JOB#: [id number] CC:
[2019-06-05] MEDS: NovoLOG Insulin Flexpen SUBQ SCH (22:29)
[2019-06-06] VITALS (7 sets, daily range): BP systolic 156–191; BP diastolic 65–78
--- NOTE | 2019-06-06 00:47 | NUR ---
NURSE NOTES: Resting throughout the night. No significant change of condition noted. Will continue to monitor.
[2019-06-06] MEDS: HydrALAZINE 50mg tab ORAL SCH ×3 (05:55→21:08)
[2019-06-06] MEDS: NovoLOG Insulin Flexpen SUBQ SCH ×4 (05:55→21:15)
--- NOTE | 2019-06-06 07:12 | Anethesia Preoperative Eval ---
Anesthesia Pre-op PMH/ROS General Date of Evaluation: Jun 06, 2019 Time of Evaluation: 08:28 Anesthesiologist: raza ASA Score: ASA 4 Mallampati Score Class I : Soft palate, uvula, fauces, pillars visible Class II: Soft palate, uvula, fauces visible Class III: Soft palate, base of uvula visible Class IV: Only hard plate visible Mallampati Classification: Class II Surgeon: manuela Diagnosis: dark stool Surgical Procedure: egd/colonoscopy Anesthesia History: none Social History: smoking - nonsmoker Family History: no anesthesia problems Allergies: Coded Allergies: No Known Allergies (Unverified , 05/12/17) Medications: see eMAR Patient NPO?: Yes Past Medical History Cardiovascular: Reports: HTN, other - chf, hypercholesterolemia, hyperlipidemia , atreiovenous shunt, acute ischemic heart disease Pulmonary: Reports: asthma, other - dyspnea Gastrointestinal/Genitourinary: Reports: ESRD - on hd mwf, other - uti Neurologic/Psychiatric: Reports: TIA, other - vertigo, tinnutus, diabetic neuropathy Endocrine: Reports: hypothyroidism Hematology/Immune: Reports: anemia Anesthesia Pre-op Phys. Exam Physician Exam Last Vital Signs Date Time Temp Pulse Resp B/P (MAP) Pulse Ox O2 Delivery O2 Flow Rate FiO2 06/06/19 05:55 156/65 06/06/19 04:00 98.4 85 16 94 06/05/19 21:00 Nasal Cannula 2.0 Constitutional: other - moderate to Neurologic: CN 2-12 intact Cardiovascular: RRR Respiratory: other - bilateral basilar rales appreciated Gastrointestinal: S/NT/ND Airway Exam Mallampati Score: Class II MO: limited Neck: flexible TMD: 2fb ROM: limited Anesthesia Pre-op A/P Labs Labs Test 06/04/19 12:30 06/05/19 06:04 06/06/19 05:30 White Blood Count 3.0 K/UL (4.8-10.8) 2.7 K/UL (4.8-10.8) 4.1 K/UL (4.8-10.8) Red Blood Count 2.88 M/UL (4.20-5.40) 2.38 M/UL (4.20-5.40) 2.92 M/UL (4.20-5.40) Hemoglobin 8.8 G/DL (12.0-16.0) 7.3 G/DL (12.0-16.0) 8.9 G/DL (12.0-16.0) Hematocrit 26.5 % (37.0-47.0) 22.0 % (37.0-47.0) 26.6 % (37.0-47.0) Mean Corpuscular Volume 92 FL (80-99) 92 FL (80-99) 91 FL (80-99) Mean Corpuscular Hemoglobin 30.7 PG (27.0-31.0) 30.8 PG (27.0-31.0) 30.5 PG (27.0-31.0) Mean Corpuscular Hemoglobin Concent 33.3 G/DL (32.0-36.0) 33.3 G/DL (32.0-36.0) 33.4 G/DL (32.0-36.0) Red Cell Distribution Width 13.2 % (11.6-14.8) 13.1 % (11.6-14.8) 13.3 % (11.6-14.8) Platelet Count 225 K/UL (150-450) 189 K/UL (150-450) 206 K/UL (150-450) Mean Platelet Volume 5.1 FL (6.5-10.1) 6.0 FL (6.5-10.1) 5.6 FL (6.5-10.1) Neutrophils (%) (Auto) % (45.0-75.0) % (45.0-75.0) 75.8 % (45.0-75.0) Lymphocytes (%) (Auto) % (20.0-45.0) % (20.0-45.0) 14.1 % (20.0-45.0) Monocytes (%) (Auto) % (1.0-10.0) % (1.0-10.0) 5.5 % (1.0-10.0) Eosinophils (%) (Auto) % (0.0-3.0) % (0.0-3.0) 2.8 % (0.0-3.0) Basophils (%) (Auto) % (0.0-2.0) % (0.0-2.0) 1.8 % (0.0-2.0) Differential Total Cells Counted 100 100 Neutrophils % (Manual) 61 % (45-75) 57 % (45-75) Lymphocytes % (Manual) 26 % (20-45) 27 % (20-45) Monocytes % (Manual) 11 % (1-10) 11 % (1-10) Eosinophils % (Manual) 2 % (0-3) 5 % (0-3) Basophils % (Manual) 0 % (0-2) 0 % (0-2) Band Neutrophils 0 % (0-8) 0 % (0-8) Platelet Estimate Adequate Adequate Platelet Morphology Normal Normal Hypochromasia 1+ 1+ Prothrombin Time 12.0 SEC (9.30-11.50) Prothromb Time International Ratio 1.1 (0.9-1.1) Activated Partial Thromboplast Time 30 SEC (23-33) Sodium Level 139 MMOL/L (136-145) 140 MMOL/L (136-145) 140 MMOL/L (136-145) Potassium Level 3.9 MMOL/L (3.5-5.1) 4.1 MMOL/L (3.5-5.1) 4.2 MMOL/L (3.5-5.1) Chloride Level 95 MMOL/L (98-107) 99 MMOL/L (98-107) 104 MMOL/L (98-107) Carbon Dioxide Level 39 MMOL/L (21-32) 35 MMOL/L (21-32) 28 MMOL/L (21-32) Anion Gap 5 mmol/L (5-15) 6 mmol/L (5-15) 8 mmol/L (5-15) Blood Urea Nitrogen 45 mg/dL (7-18) 53 mg/dL (7-18) 49 mg/dL (7-18) Creatinine 4.8 MG/DL (0.55-1.30) 5.6 MG/DL (0.55-1.30) 5.8 MG/DL (0.55-1.30) Estimat Glomerular Filtration Rate 9.0 mL/min (>60) 7.5 mL/min (>60) 7.2 mL/min (>60) Glucose Level 219 MG/DL (74-106) 151 MG/DL (74-106) 156 MG/DL (74-106) Calcium Level 7.5 MG/DL (8.5-10.1) 7.1 MG/DL (8.5-10.1) 7.6 MG/DL (8.5-10.1) Total Bilirubin 0.5 MG/DL (0.2-1.0) 0.4 MG/DL (0.2-1.0) 0.5 MG/DL (0.2-1.0) Aspartate Amino Transf (AST/SGOT) 14 U/L (15-37) 9 U/L (15-37) 13 U/L (15-37) Alanine Aminotransferase (ALT/SGPT) 9 U/L (12-78) < 6 U/L (12-78) 7 U/L (12-78) Alkaline Phosphatase 82 U/L (46-116) 67 U/L (46-116) 70 U/L (46-116) Troponin I 0.044 ng/mL (0.000-0.056) 0.038 ng/mL (0.000-0.056) Total Protein 7.2 G/DL (6.4-8.2) 6.4 G/DL (6.4-8.2) 6.8 G/DL (6.4-8.2) Albumin 3.6 G/DL (3.4-5.0) 3.2 G/DL (3.4-5.0) 3.4 G/DL (3.4-5.0) Globulin 3.6 g/dL 3.2 g/dL 3.4 g/dL Albumin/Globulin Ratio 1.0 (1.0-2.7) 1.0 (1.0-2.7) 1.0 (1.0-2.7) Lipase 110 U/L (73-393) Hemoglobin A1c 6.2 % (4.3-6.0) Uric Acid 5.1 MG/DL (2.6-7.2) Phosphorus Level 5.0 MG/DL (2.5-4.9) 4.4 MG/DL (2.5-4.9) Magnesium Level 1.8 MG/DL (1.8-2.4) 1.9 MG/DL (1.8-2.4) Iron Level 71 ug/dL (50-175) Total Iron Binding Capacity 193 ug/dL (250-450) Percent Iron Saturation 37 % (15-50) Unsaturated Iron Binding 122 ug/dL (112-346) Ferritin 634 NG/ML (8-388) Gamma Glutamyl Transpeptidase 28 U/L (5-85) C-Reactive Protein, Quantitative < 0.4 mg/dL (0.00-0.90) Pro-B-Type Natriuretic Peptide 61392 pg/mL (0-125) Triglycerides Level 149 MG/DL (30-150) Cholesterol Level 123 MG/DL (< 200) LDL Cholesterol 65 mg/dL (<100) HDL Cholesterol 33 MG/DL (40-60) Cholesterol/HDL Ratio 3.7 (3.3-4.4) Vitamin B12 Level 372 PG/ML (193-986) Folate 10.7 NG/ML (8.6-58.9) Thyroid Stimulating Hormone (TSH) 4.819 uiU/mL (0.358-3.740) Studies Pre-op Studies: EKG Risk Assessment & Plan Assessment: asa4 acute respiratory distress. possibly fluid overload. Plan: stablize patient before performing procedure with MAC. dialysis scheduled for today. obtain 12 lead ecg. nebulizer treatment. Status Change Before Surgery: Yes - sob, using accessory muscles. c/o sensation of heaviness on chest. stat12 lead ecg ordered Pre-Antibiotics Drug: Alison Valenzuela MD Jun 06, 2019 07:12
--- NOTE | 2019-06-06 07:15 | NUR ---
HAND-OFF: Report given to SIDNEY Gonzalez. Plan of care endorsed.
[2019-06-06 07:40] LABS: BASOPHILS % (AUTO) 1.8 % (0.0-2.0); EOSINOPHILS % (AUTO) 2.8 % (0.0-3.0); HEMATOCRIT 26.6 % (37.0-47.0); HEMOGLOBIN 8.9 G/DL (12.0-16.0); LYMPHOCYTES % (AUTO) 14.1 % (20.0-45.0); MEAN CORPUSCULAR VOLUME 91 FL (80-99); MONOCYTES % (AUTO) 5.5 % (1.0-10.0); NEUTROPHILS % (AUTO) 75.8 % (45.0-75.0); PLATELET COUNT 206 K/UL (150-450); RED BLOOD COUNT 2.92 M/UL (4.20-5.40); RED CELL DISTRIBUTION WIDTH 13.3 % (11.6-14.8); WHITE BLOOD COUNT 4.1 K/UL (4.8-10.8)
--- NOTE | 2019-06-06 07:48 | NUR ---
NURSE NOTES: received patient report from ferny montalvo. patient is on bed awake. not in acute distress. no acute events last night. for egd/colonoscopy today, kept npo.consent signed.will follow plan of care.
[2019-06-06 08:19] LABS: ALANINE AMINOTRANSFERASE 7 U/L (12-78); ALBUMIN 3.4 G/DL (3.4-5.0); ALKALINE PHOSPHATASE 70 U/L (46-116); ANION GAP 8 mmol/L (5-15); ASPARTATE AMINO TRANSFERASE 13 U/L (15-37); BILIRUBIN,TOTAL 0.5 MG/DL (0.2-1.0); BLOOD UREA NITROGEN 49 mg/dL (7-18); CALCIUM 7.6 MG/DL (8.5-10.1); CARBON DIOXIDE 28 MMOL/L (21-32); CHLORIDE 104 MMOL/L (98-107); CREATININE 5.8 MG/DL (0.55-1.30); PHOSPHORUS 4.4 MG/DL (2.5-4.9); POTASSIUM 4.2 MMOL/L (3.5-5.1); SODIUM 140 MMOL/L (136-145)
--- NOTE | 2019-06-06 08:40 | General Progress Note ---
Assessment/Plan Assessment/Plan: Assessment - dyspnea, rales on exam - possibly fluid overloaded - Heme (+) stools - anemia - recurrent GI Bleed - colon polyps - gastritis - hemorrhoids - ESRD / HD Recommendations - Stat EKG - some QRS morphology changes seen, but no ST/ changes - O2 - EGD/Colon cancelled/postponed due to dyspnea - rec cardiology eval - check CXR - elevate HOB - will d/w PMD and renal Subjective Allergies: Coded Allergies: No Known Allergies (Unverified , 05/12/17) Subjective seen in GI lab patient c/o dyspnea, started this am some chest pressure visibly uncomfortable Objective Last 24 Hour Vital Signs Date Time Temp Pulse Resp B/P (MAP) Pulse Ox O2 Delivery O2 Flow Rate FiO2 06/06/19 05:55 156/65 06/06/19 04:00 98.4 85 16 156/65 (95) 94 06/06/19 04:00 88 06/06/19 00:13 171/69 06/06/19 00:00 98.1 80 18 171/69 (103) 94 06/06/19 00:00 83 06/05/19 22:25 168/71 06/05/19 21:00 Nasal Cannula 2.0 06/05/19 20:00 91 06/05/19 20:00 99.3 89 16 168/71 (103) 96 06/05/19 16:35 176/71 06/05/19 16:00 97.9 73 18 153/59 (90) 95 06/05/19 16:00 77 06/05/19 15:50 97.8 74 18 153/59 (90) 94 06/05/19 15:35 97.5 75 18 137/62 (87) 95 06/05/19 14:14 145/55 06/05/19 12:00 81 06/05/19 12:00 98.0 81 18 145/55 (85) 99 06/05/19 09:00 Nasal Cannula 2.0 Intake and Output 06/05/19 06/06/19 19:00 07:00 Intake Total 720 ml 120 ml Balance 720 ml 120 ml Intake Oral 720 ml 120 ml # Voids 4 2 # Bowel Movements 1 7 Laboratory Tests 06/06/19 05:30: White Blood Count 4.1#L, Red Blood Count 2.92L, Hemoglobin 8.9L, Hematocrit 26.6L, Mean Corpuscular Volume 91, Mean Corpuscular Hemoglobin 30.5, Mean Corpuscular Hemoglobin Concent 33.4, Red Cell Distribution Width 13.3, Platelet Count 206, Mean Platelet Volume 5.6L, Neutrophils (%) (Auto) 75.8H, Lymphocytes (%) (Auto) 14.1L, Monocytes (%) (Auto) 5.5, Eosinophils (%) (Auto) 2.8, Basophils (%) (Auto) 1.8, Sodium Level 140, Potassium Level 4.2, Chloride Level 104, Carbon Dioxide Level 28, Anion Gap 8, Blood Urea Nitrogen 49H, Creatinine 5.8H, Estimat Glomerular Filtration Rate 7.2, Glucose Level 156H, Calcium Level 7.6L, Phosphorus Level 4.4, Magnesium Level 1.9, Total Bilirubin 0.5, Aspartate Amino Transf (AST/SGOT) 13L, Alanine Aminotransferase (ALT/SGPT) 7L, Alkaline Phosphatase 70, Total Protein 6.8, Albumin 3.4, Globulin 3.4, Albumin/Globulin Ratio 1.0 Height (Feet): 5 Height (Inches): 3.00 Weight (Pounds): 167 Objective WDWN NCAT supple CTA RRR abd soft no edema Ramakrishna Leonard MD Jun 06, 2019 08:40
[2019-06-06] MEDS: Docusate 100mg cap ORAL SCH ×4 (09:00→17:04)
[2019-06-06] MEDS ORDERED: Albuterol ud Inhalation HHN SCH (09:00)
--- NOTE | 2019-06-06 09:30 | NUR ---
NURSE NOTES: [facility] called and reported that this patient has SOB just prior procedure. Dr roy cancelled EGD and ordered stat cxr and stat ekg. ans was placed on simple mask 6 li. awaiting for patient transfer as of this time.
[2019-06-06] MEDS: D5NS 1,000 ML IV SCH (09:34)
[2019-06-06] MEDS: Pantoprazole Inj IVP SCH ×2 (09:34→21:06)
--- NOTE | 2019-06-06 12:29 | Pulmonology Progress Note ---
Assessment/Plan Assessment/Plan Pulmonary Consultation HPI Patient is a 69 year old woman with past medical history of End Stage Renal Disease on MWF HD, CAD, Hypertension, Type 2 Diabetes, Asthma, Hypothyroidism, GERD, Gastritis, Colonic Polyps, B12 deficiency, Anemia, who presented after increased generalized weakness and dizziness, persistently black stool. Denies fevers, chest pain, has some shortness of breath. She had recent endoscopy after episode of bleeding. She had noticed continued bleeding in her stools . Has had mild pain in her abdomen. Denies any alcohol use. Allergies: No Known Allergies Past Medical History: Asthma, End Stage Renal Disease on MWF HD, Hypertension, CAD, Hypertensive Heart Disease, Type 2 Diabetes, Hypothyroidism, GERD, Gastritis, Colonic Polyps, B12 deficiency, Anemia All Other Systems: negative except mentioned in HPI Physical Exam Vital Signs Noted General Appearance: normal inspection, well appearing, no apparent distress, alert, GCS 15 Head: atraumatic ENT: moist mm, no lN, JVP 8cm Neck: normal inspection, full range of motion, supple, no bony tend Respiratory: normal inspection, no respiratory distress, no retraction, no wheezing Cardiovascular: regular rate, rhythm, HS1, HS2 normal, no edema Gastrointestinal: normal inspection, normal bowel sounds, soft,non tender, non distended, no guarding Musculoskeletal: normal inspection, back normal, normal range of motion Neurologic: normal inspection, alert, responsive, speech normal Impression: Anemia due to acute blood loss Gastrointestinal bleed Anemia in chronic kidney disease (CKD) Asthma End Stage Renal Disease on HD Hypertension CAD, Hypertensive Heart Disease Type 2 Diabetes Hypothyroidism GERD Gastritis Colonic Polyps B12 deficiency Anemia Plan HD per Renal Transfuse PRN O2 PRN HHN PRN Protonix [employer] medications ISS PPX CXR Labs Test 06/04/19 12:30 White Blood Count 3.0 K/UL (4.8-10.8) Red Blood Count 2.88 M/UL (4.20-5.40) Hemoglobin 8.8 G/DL (12.0-16.0) Hematocrit 26.5 % (37.0-47.0) Mean Corpuscular Volume 92 FL (80-99) Mean Corpuscular Hemoglobin 30.7 PG (27.0-31.0) Mean Corpuscular Hemoglobin Concent 33.3 G/DL (32.0-36.0) Red Cell Distribution Width 13.2 % (11.6-14.8) Platelet Count 225 K/UL (150-450) Mean Platelet Volume 5.1 FL (6.5-10.1) Neutrophils (%) (Auto) % (45.0-75.0) Lymphocytes (%) (Auto) % (20.0-45.0) Monocytes (%) (Auto) % (1.0-10.0) Eosinophils (%) (Auto) % (0.0-3.0) Basophils (%) (Auto) % (0.0-2.0) Differential Total Cells Counted 100 Neutrophils % (Manual) 61 % (45-75) Lymphocytes % (Manual) 26 % (20-45) Monocytes % (Manual) 11 % (1-10) Eosinophils % (Manual) 2 % (0-3) Basophils % (Manual) 0 % (0-2) Band Neutrophils 0 % (0-8) Platelet Estimate Adequate Platelet Morphology Normal Hypochromasia 1+ Prothrombin Time 12.0 SEC (9.30-11.50) Prothromb Time International Ratio 1.1 (0.9-1.1) Activated Partial Thromboplast Time 30 SEC (23-33) Sodium Level 139 MMOL/L (136-145) Potassium Level 3.9 MMOL/L (3.5-5.1) Chloride Level 95 MMOL/L (98-107) Carbon Dioxide Level 39 MMOL/L (21-32) Anion Gap 5 mmol/L (5-15) Blood Urea Nitrogen 45 mg/dL (7-18) Creatinine 4.8 MG/DL (0.55-1.30) Estimat Glomerular Filtration Rate 9.0 mL/min (>60) Glucose Level 219 MG/DL (74-106) Calcium Level 7.5 MG/DL (8.5-10.1) Total Bilirubin 0.5 MG/DL (0.2-1.0) Aspartate Amino Transf (AST/SGOT) 14 U/L (15-37) Alanine Aminotransferase (ALT/SGPT) 9 U/L (12-78) Alkaline Phosphatase 82 U/L (46-116) Troponin I 0.044 ng/mL (0.000-0.056) Total Protein 7.2 G/DL (6.4-8.2) Albumin 3.6 G/DL (3.4-5.0) Globulin 3.6 g/dL Albumin/Globulin Ratio 1.0 (1.0-2.7) Lipase 110 U/L (73-393) EKG: Rate: normal Rhythm: NSR ST Segments: no acute changes CXR: Recent admission, Cardiomegaly, possible congestion Subjective ROS Limited/Unobtainable: No Allergies: Coded Allergies: No Known Allergies (Unverified , 05/12/17) Objective Last 24 Hour Vital Signs Date Time Temp Pulse Resp B/P (MAP) Pulse Ox O2 Delivery O2 Flow Rate FiO2 06/06/19 09:37 177/78 06/06/19 09:24 88 18 98 Nasal Cannula 4.0 36 87 20 97 06/06/19 09:00 Simple Mask 5.0 06/06/19 08:00 98.2 87 18 177/78 (111) 93 06/06/19 07:58 89 06/06/19 05:55 156/65 06/06/19 04:00 98.4 85 16 156/65 (95) 94 06/06/19 04:00 88 06/06/19 00:13 171/69 06/06/19 00:00 98.1 80 18 171/69 (103) 94 06/06/19 00:00 83 06/05/19 22:25 168/71 06/05/19 21:00 Nasal Cannula 2.0 06/05/19 20:00 91 06/05/19 20:00 99.3 89 16 168/71 (103) 96 06/05/19 16:35 176/71 06/05/19 16:00 97.9 73 18 153/59 (90) 95 06/05/19 16:00 77 06/05/19 15:50 97.8 74 18 153/59 (90) 94 06/05/19 15:35 97.5 75 18 137/62 (87) 95 06/05/19 14:14 145/55 Intake and Output 06/05/19 06/06/19 19:00 07:00 Intake Total 720 ml 120 ml Balance 720 ml 120 ml Intake Oral 720 ml 120 ml # Voids 4 2 # Bowel Movements 1 7 Laboratory Tests 06/06/19 05:30: White Blood Count 4.1#L, Red Blood Count 2.92L, Hemoglobin 8.9L, Hematocrit 26.6L, Mean Corpuscular Volume 91, Mean Corpuscular Hemoglobin 30.5, Mean Corpuscular Hemoglobin Concent 33.4, Red Cell Distribution Width 13.3, Platelet Count 206, Mean Platelet Volume 5.6L, Neutrophils (%) (Auto) 75.8H, Lymphocytes (%) (Auto) 14.1L, Monocytes (%) (Auto) 5.5, Eosinophils (%) (Auto) 2.8, Basophils (%) (Auto) 1.8, Sodium Level 140, Potassium Level 4.2, Chloride Level 104, Carbon Dioxide Level 28, Anion Gap 8, Blood Urea Nitrogen 49H, Creatinine 5.8H, Estimat Glomerular Filtration Rate 7.2, Glucose Level 156H, Calcium Level 7.6L, Phosphorus Level 4.4, Magnesium Level 1.9, Total Bilirubin 0.5, Aspartate Amino Transf (AST/SGOT) 13L, Alanine Aminotransferase (ALT/SGPT) 7L, Alkaline Phosphatase 70, Troponin I 0.009, Total Protein 6.8, Albumin 3.4, Globulin 3.4, Albumin/Globulin Ratio 1.0 Current Medications Medications (Trade) Dose Ordered Sig/Toya Route PRN Reason Start Time Stop Time Status Last Admin Dose Admin Acetaminophen (Tylenol) 650 mg Q4H PRN ORAL Mild Pain/Temp > 100.5 06/06/19 10:30 07/06/19 10:29 06/06/19 10:40 Dextrose (Dextrose 50%) 25 ml Q30M PRN IV Hypoglycemia 06/04/19 17:15 07/04/19 17:14 Dextrose (Dextrose 50%) 50 ml Q30M PRN IV Hypoglycemia 06/04/19 17:15 07/04/19 17:14 Dextrose/Sodium Chloride 1,000 ml @ 50 mls/hr Q20H IV 06/04/19 15:30 07/04/19 15:29 06/06/19 09:34 Docusate Sodium (Colace) 100 mg THREE TIMES A DAY ORAL 06/05/19 13:00 07/05/19 12:59 Epoetin Panchito (Epoetin Panchito(ESRD on dialysis)) 3,000 unit THU-THU-THU SUBQ 06/06/19 21:00 07/06/19 20:59 Gabapentin (Neurontin) 200 mg THREE TIMES A DAY ORAL 06/04/19 18:00 07/04/19 17:59 06/06/19 09:34 Hydralazine HCl (Apresoline) 10 mg Q4H PRN IV bp over 165 syst 06/04/19 15:45 07/04/19 15:44 06/06/19 09:37 Hydralazine HCl (Apresoline) 50 mg Q8HR ORAL 06/04/19 22:00 07/04/19 21:59 06/06/19 05:55 Insulin Aspart (NovoLOG) BEFORE MEALS AND HS SUBQ 06/05/19 21:00 07/05/19 20:59 06/05/19 22:29 Levothyroxine Sodium (Synthroid) 50 mcg DAILY IV 06/05/19 09:00 07/05/19 08:59 06/06/19 09:34 Pantoprazole (Protonix) 40 mg EVERY 12 HOURS IVP 06/04/19 21:00 07/04/19 20:59 06/06/19 09:34 Sevelamer Carbonate (Renvela) 800 mg THREE TIMES A DAY ORAL 06/05/19 13:00 07/05/19 12:59 06/06/19 09:33 Brandon Herbert MD Jun 06, 2019 12:29
--- NOTE | 2019-06-06 12:48 | Diagnostic Imaging Report ---
Indication: Dyspnea Comparison: 05/27/2019 2 views of the chest obtained. Findings: Pulmonary vascular congestion with interstitial and some airspace disease are demonstrated. There is left basilar density consistent with a pleural effusion. Bones are osteopenic. IMPRESSION: Moderate CHF. Left pleural effusion
[2019-06-06] MEDS: Albuterol/Ipratropium 3ml neb HHN SCH ×3 (14:15→22:32)
--- NOTE | 2019-06-06 14:24 | Cardiac Electrophysiology PN ---
Subjective Subjective [id number] SOB, VOlume overload. Ruled out for TN. ECG non ischemic. EF 50% Objective Last 24 Hour Vital Signs Date Time Temp Pulse Resp B/P (MAP) Pulse Ox O2 Delivery O2 Flow Rate FiO2 06/06/19 14:17 88 18 99 Nasal Cannula 3.0 32 87 16 98 06/06/19 13:56 177/78 06/06/19 12:00 98.2 84 19 172/78 (109) 93 06/06/19 09:37 177/78 06/06/19 09:24 88 18 98 Nasal Cannula 4.0 36 87 20 97 06/06/19 09:00 Simple Mask 5.0 06/06/19 08:00 98.2 87 18 177/78 (111) 93 06/06/19 07:58 89 06/06/19 05:55 156/65 06/06/19 04:00 98.4 85 16 156/65 (95) 94 06/06/19 04:00 88 06/06/19 00:13 171/69 06/06/19 00:00 98.1 80 18 171/69 (103) 94 06/06/19 00:00 83 06/05/19 22:25 168/71 06/05/19 21:00 Nasal Cannula 2.0 06/05/19 20:00 91 06/05/19 20:00 99.3 89 16 168/71 (103) 96 06/05/19 16:35 176/71 06/05/19 16:00 97.9 73 18 153/59 (90) 95 06/05/19 16:00 77 06/05/19 15:50 97.8 74 18 153/59 (90) 94 06/05/19 15:35 97.5 75 18 137/62 (87) 95 Intake and Output 06/05/19 06/06/19 19:00 07:00 Intake Total 720 ml 120 ml Balance 720 ml 120 ml Intake Oral 720 ml 120 ml # Voids 4 2 # Bowel Movements 1 7 Laboratory Tests Test 06/06/19 05:30 White Blood Count 4.1 K/UL (4.8-10.8) #L Red Blood Count 2.92 M/UL (4.20-5.40) L Hemoglobin 8.9 G/DL (12.0-16.0) L Hematocrit 26.6 % (37.0-47.0) L Mean Corpuscular Volume 91 FL (80-99) Mean Corpuscular Hemoglobin 30.5 PG (27.0-31.0) Mean Corpuscular Hemoglobin Concent 33.4 G/DL (32.0-36.0) Red Cell Distribution Width 13.3 % (11.6-14.8) Platelet Count 206 K/UL (150-450) Mean Platelet Volume 5.6 FL (6.5-10.1) L Neutrophils (%) (Auto) 75.8 % (45.0-75.0) H Lymphocytes (%) (Auto) 14.1 % (20.0-45.0) L Monocytes (%) (Auto) 5.5 % (1.0-10.0) Eosinophils (%) (Auto) 2.8 % (0.0-3.0) Basophils (%) (Auto) 1.8 % (0.0-2.0) Sodium Level 140 MMOL/L (136-145) Potassium Level 4.2 MMOL/L (3.5-5.1) Chloride Level 104 MMOL/L (98-107) Carbon Dioxide Level 28 MMOL/L (21-32) Anion Gap 8 mmol/L (5-15) Blood Urea Nitrogen 49 mg/dL (7-18) H Creatinine 5.8 MG/DL (0.55-1.30) H Estimat Glomerular Filtration Rate 7.2 mL/min (>60) Glucose Level 156 MG/DL (74-106) H Calcium Level 7.6 MG/DL (8.5-10.1) L Phosphorus Level 4.4 MG/DL (2.5-4.9) Magnesium Level 1.9 MG/DL (1.8-2.4) Total Bilirubin 0.5 MG/DL (0.2-1.0) Aspartate Amino Transf (AST/SGOT) 13 U/L (15-37) L Alanine Aminotransferase (ALT/SGPT) 7 U/L (12-78) L Alkaline Phosphatase 70 U/L (46-116) Troponin I 0.009 ng/mL (0.000-0.056) Total Protein 6.8 G/DL (6.4-8.2) Albumin 3.4 G/DL (3.4-5.0) Globulin 3.4 g/dL Albumin/Globulin Ratio 1.0 (1.0-2.7) Zev Gatica MD Jun 06, 2019 14:24
--- NOTE | 2019-06-06 15:11 | Hematology/Onc Progress Note ---
Assessment/Plan Assessment/Plan Assessment/Plan 1. Anemia due to underlying chronic disease. Have reviewed prior workup, ferritin is >1000, though percent saturation Tsat <30, but not recommended for further iron --> Continue to closely monitor. --> Transfuse if hgb <7 --> if ferritin <500, give iron suppl --> give epogen, has been started 3x a week --> as per renal --> monitor for gi bleed, gi consulted(for COLO/EGD) --> hgb trend 7.4-->8.9 2. Leukopenia likely reactive process v infection v from meds --> hepatitis and hiv prior negative --> neutropenic precautions if ANC <1500 --> trending stable --> imaging reviewed and no hsm / cirrhosis noted --> wbc 2.7-->4 --> neupogen if wbc lower or any signs of infection --> ANC goal >1500 3. End-stage renal disease, on hemodialysis three times a week. --> renal consulted --> continue hd 4. History of coronary artery disease. --> cards reviewed --> diuresis prn 5. History of anemia due to low B12, low iron --> b12 is currently within normal limits --> reobtain q6mo 6. Dizziness and unsteady gait 7. DVt ppsx with SCDs Greatly appreciate consultation and Dw RN am. Subjective Constitutional: Denies: no symptoms, chills, fever, malaise, weakness, other HEENT: Denies: no symptoms, eye pain, blurred vision, tearing, double vision, ear pain, ear discharge, nose pain, nose congestion, throat pain, throat swelling, mouth pain, mouth swelling, other Cardiovascular: Denies: no symptoms, chest pain, edema, irregular heart rate, lightheadedness, palpitations, syncope, other Respiratory: Denies: no symptoms, cough, shortness of breath, SOB with excertion, SOB at rest, sputum, wheezing, other Genitourinary: Denies: no symptoms, burning, discharge, frequency, flank pain, hematuria, incontinence, pain, urgency, other Neurologic/Psychiatric: Denies: no symptoms, anxiety, depressed, emotional problems, headache, numbness, paresthesia, pre-existing deficit, seizure, tingling, tremors, weakness, other Endocrine: Denies: no symptoms, excessive sweating, flushing, intolerance to cold, intolerance to heat, increased hunger, increased thirst, increased urine, unexplained weight gain, unexplained weight loss, other Hematologic/Lymphatic: Denies: no symptoms, anemia, easy bleeding, easy bruising, adenopathy, other Allergies: Coded Allergies: No Known Allergies (Unverified , 05/12/17) Subjective 06/06: no events, egdcolo cancelled bc sob, cards seen eval reviewed, trop neg Objective Objective Current Medications Medications (Trade) Dose Ordered Sig/Toya Route PRN Reason Start Time Stop Time Status Last Admin Dose Admin Acetaminophen (Tylenol) 650 mg Q4H PRN ORAL Mild Pain/Temp > 100.5 06/06/19 10:30 07/06/19 10:29 06/06/19 10:40 Albuterol/ Ipratropium (Albuterol/ Ipratropium) 3 ml Q4HRT HHN 06/06/19 15:00 06/11/19 14:59 06/06/19 14:15 Dextrose (Dextrose 50%) 25 ml Q30M PRN IV Hypoglycemia 06/04/19 17:15 07/04/19 17:14 Dextrose (Dextrose 50%) 50 ml Q30M PRN IV Hypoglycemia 06/04/19 17:15 07/04/19 17:14 Dextrose/Sodium Chloride 1,000 ml @ 50 mls/hr Q20H IV 06/04/19 15:30 07/04/19 15:29 06/06/19 09:34 Docusate Sodium (Colace) 100 mg THREE TIMES A DAY ORAL 06/05/19 13:00 07/05/19 12:59 Epoetin Panchito (Epoetin Panchito(ESRD on dialysis)) 3,000 unit THU-THU-THU SUBQ 06/06/19 21:00 07/06/19 20:59 Gabapentin (Neurontin) 200 mg THREE TIMES A DAY ORAL 06/04/19 18:00 07/04/19 17:59 06/06/19 13:55 Hydralazine HCl (Apresoline) 10 mg Q4H PRN IV bp over 165 syst 06/04/19 15:45 07/04/19 15:44 06/06/19 09:37 Hydralazine HCl (Apresoline) 50 mg Q8HR ORAL 06/04/19 22:00 07/04/19 21:59 06/06/19 13:56 Insulin Aspart (NovoLOG) BEFORE MEALS AND HS SUBQ 06/05/19 21:00 07/05/19 20:59 06/06/19 12:18 Levothyroxine Sodium (Synthroid) 50 mcg DAILY IV 06/05/19 09:00 07/05/19 08:59 06/06/19 09:34 Pantoprazole (Protonix) 40 mg EVERY 12 HOURS IVP 06/04/19 21:00 07/04/19 20:59 06/06/19 09:34 Sevelamer Carbonate (Renvela) 800 mg THREE TIMES A DAY ORAL 06/05/19 13:00 07/05/19 12:59 06/06/19 13:56 Last 24 Hour Vital Signs Date Time Temp Pulse Resp B/P (MAP) Pulse Ox O2 Delivery O2 Flow Rate FiO2 06/06/19 14:17 88 18 99 Nasal Cannula 3.0 32 87 16 98 06/06/19 13:56 177/78 06/06/19 12:00 98.2 84 19 172/78 (109) 93 06/06/19 11:46 83 06/06/19 09:37 177/78 06/06/19 09:24 88 18 98 Nasal Cannula 4.0 36 87 20 97 06/06/19 09:00 Simple Mask 5.0 06/06/19 08:00 98.2 87 18 177/78 (111) 93 06/06/19 07:58 89 06/06/19 05:55 156/65 06/06/19 04:00 98.4 85 16 156/65 (95) 94 06/06/19 04:00 88 06/06/19 00:13 171/69 06/06/19 00:00 98.1 80 18 171/69 (103) 94 06/06/19 00:00 83 06/05/19 22:25 168/71 06/05/19 21:00 Nasal Cannula 2.0 06/05/19 20:00 91 06/05/19 20:00 99.3 89 16 168/71 (103) 96 06/05/19 16:35 176/71 06/05/19 16:00 97.9 73 18 153/59 (90) 95 06/05/19 16:00 77 06/05/19 15:50 97.8 74 18 153/59 (90) 94 06/05/19 15:35 97.5 75 18 137/62 (87) 95 06/05/19 14:14 145/55 06/05/19 12:00 81 06/05/19 12:00 98.0 81 18 145/55 (85) 99 06/05/19 09:00 Nasal Cannula 2.0 06/05/19 08:00 97.8 75 18 136/52 (80) 94 06/05/19 08:00 72 06/05/19 06:41 159/82 06/05/19 04:00 98.3 84 19 159/82 (107) 96 06/05/19 04:00 70 06/05/19 00:00 98.2 81 19 134/86 (102) 95 06/05/19 00:00 76 06/04/19 21:15 138/56 06/04/19 21:00 Nasal Cannula 2.0 06/04/19 20:00 72 06/04/19 20:00 97.7 79 18 138/56 (83) 100 06/04/19 16:00 80 06/04/19 15:09 Nasal Cannula 1.0 Intake and Output 06/05/19 06/06/19 19:00 07:00 Intake Total 720 ml 120 ml Balance 720 ml 120 ml Intake Oral 720 ml 120 ml # Voids 4 2 # Bowel Movements 1 7 Labs Test 06/04/19 12:30 06/05/19 06:04 06/06/19 05:30 White Blood Count 3.0 K/UL (4.8-10.8) 2.7 K/UL (4.8-10.8) 4.1 K/UL (4.8-10.8) Red Blood Count 2.88 M/UL (4.20-5.40) 2.38 M/UL (4.20-5.40) 2.92 M/UL (4.20-5.40) Hemoglobin 8.8 G/DL (12.0-16.0) 7.3 G/DL (12.0-16.0) 8.9 G/DL (12.0-16.0) Hematocrit 26.5 % (37.0-47.0) 22.0 % (37.0-47.0) 26.6 % (37.0-47.0) Mean Corpuscular Volume 92 FL (80-99) 92 FL (80-99) 91 FL (80-99) Mean Corpuscular Hemoglobin 30.7 PG (27.0-31.0) 30.8 PG (27.0-31.0) 30.5 PG (27.0-31.0) Mean Corpuscular Hemoglobin Concent 33.3 G/DL (32.0-36.0) 33.3 G/DL (32.0-36.0) 33.4 G/DL (32.0-36.0) Red Cell Distribution Width 13.2 % (11.6-14.8) 13.1 % (11.6-14.8) 13.3 % (11.6-14.8) Platelet Count 225 K/UL (150-450) 189 K/UL (150-450) 206 K/UL (150-450) Mean Platelet Volume 5.1 FL (6.5-10.1) 6.0 FL (6.5-10.1) 5.6 FL (6.5-10.1) Neutrophils (%) (Auto) % (45.0-75.0) % (45.0-75.0) 75.8 % (45.0-75.0) Lymphocytes (%) (Auto) % (20.0-45.0) % (20.0-45.0) 14.1 % (20.0-45.0) Monocytes (%) (Auto) % (1.0-10.0) % (1.0-10.0) 5.5 % (1.0-10.0) Eosinophils (%) (Auto) % (0.0-3.0) % (0.0-3.0) 2.8 % (0.0-3.0) Basophils (%) (Auto) % (0.0-2.0) % (0.0-2.0) 1.8 % (0.0-2.0) Differential Total Cells Counted 100 100 Neutrophils % (Manual) 61 % (45-75) 57 % (45-75) Lymphocytes % (Manual) 26 % (20-45) 27 % (20-45) Monocytes % (Manual) 11 % (1-10) 11 % (1-10) Eosinophils % (Manual) 2 % (0-3) 5 % (0-3) Basophils % (Manual) 0 % (0-2) 0 % (0-2) Band Neutrophils 0 % (0-8) 0 % (0-8) Platelet Estimate Adequate Adequate Platelet Morphology Normal Normal Hypochromasia 1+ 1+ Prothrombin Time 12.0 SEC (9.30-11.50) Prothromb Time International Ratio 1.1 (0.9-1.1) Activated Partial Thromboplast Time 30 SEC (23-33) Sodium Level 139 MMOL/L (136-145) 140 MMOL/L (136-145) 140 MMOL/L (136-145) Potassium Level 3.9 MMOL/L (3.5-5.1) 4.1 MMOL/L (3.5-5.1) 4.2 MMOL/L (3.5-5.1) Chloride Level 95 MMOL/L (98-107) 99 MMOL/L (98-107) 104 MMOL/L (98-107) Carbon Dioxide Level 39 MMOL/L (21-32) 35 MMOL/L (21-32) 28 MMOL/L (21-32) Anion Gap 5 mmol/L (5-15) 6 mmol/L (5-15) 8 mmol/L (5-15) Blood Urea Nitrogen 45 mg/dL (7-18) 53 mg/dL (7-18) 49 mg/dL (7-18) Creatinine 4.8 MG/DL (0.55-1.30) 5.6 MG/DL (0.55-1.30) 5.8 MG/DL (0.55-1.30) Estimat Glomerular Filtration Rate 9.0 mL/min (>60) 7.5 mL/min (>60) 7.2 mL/min (>60) Glucose Level 219 MG/DL (74-106) 151 MG/DL (74-106) 156 MG/DL (74-106) Calcium Level 7.5 MG/DL (8.5-10.1) 7.1 MG/DL (8.5-10.1) 7.6 MG/DL (8.5-10.1) Total Bilirubin 0.5 MG/DL (0.2-1.0) 0.4 MG/DL (0.2-1.0) 0.5 MG/DL (0.2-1.0) Aspartate Amino Transf (AST/SGOT) 14 U/L (15-37) 9 U/L (15-37) 13 U/L (15-37) Alanine Aminotransferase (ALT/SGPT) 9 U/L (12-78) < 6 U/L (12-78) 7 U/L (12-78) Alkaline Phosphatase 82 U/L (46-116) 67 U/L (46-116) 70 U/L (46-116) Troponin I 0.044 ng/mL (0.000-0.056) 0.038 ng/mL (0.000-0.056) 0.009 ng/mL (0.000-0.056) Total Protein 7.2 G/DL (6.4-8.2) 6.4 G/DL (6.4-8.2) 6.8 G/DL (6.4-8.2) Albumin 3.6 G/DL (3.4-5.0) 3.2 G/DL (3.4-5.0) 3.4 G/DL (3.4-5.0) Globulin 3.6 g/dL 3.2 g/dL 3.4 g/dL Albumin/Globulin Ratio 1.0 (1.0-2.7) 1.0 (1.0-2.7) 1.0 (1.0-2.7) Lipase 110 U/L (73-393) Hemoglobin A1c 6.2 % (4.3-6.0) Uric Acid 5.1 MG/DL (2.6-7.2) Phosphorus Level 5.0 MG/DL (2.5-4.9) 4.4 MG/DL (2.5-4.9) Magnesium Level 1.8 MG/DL (1.8-2.4) 1.9 MG/DL (1.8-2.4) Iron Level 71 ug/dL (50-175) Total Iron Binding Capacity 193 ug/dL (250-450) Percent Iron Saturation 37 % (15-50) Unsaturated Iron Binding 122 ug/dL (112-346) Ferritin 634 NG/ML (8-388) Gamma Glutamyl Transpeptidase 28 U/L (5-85) C-Reactive Protein, Quantitative < 0.4 mg/dL (0.00-0.90) Pro-B-Type Natriuretic Peptide 30413 pg/mL (0-125) Triglycerides Level 149 MG/DL (30-150) Cholesterol Level 123 MG/DL (< 200) LDL Cholesterol 65 mg/dL (<100) HDL Cholesterol 33 MG/DL (40-60) Cholesterol/HDL Ratio 3.7 (3.3-4.4) Vitamin B12 Level 372 PG/ML (193-986) Folate 10.7 NG/ML (8.6-58.9) Thyroid Stimulating Hormone (TSH) 4.819 uiU/mL (0.358-3.740) Height (Feet): 5 Height (Inches): 3.00 Weight (Pounds): 167 Carl Daniels MD Jun 06, 2019 15:11
--- NOTE | 2019-06-06 15:17 | NUR ---
CASE MANAGEMENT: REVIEW 06/06/19 SI:DARK STOOLS PMH: ESRD ON HD/ CHF. DM. HTN. 98.2 87 18 177/78 93% ON RA CA+ 7.6; WBC 4.1; RBC 2.92; H/H 8.9/26.6; BUN 49; CREAT 5.8; BG 156; IS: IV HYDRALAZINE Q4/PRN IV DEXTROSE @50HR HYDRALAZINE PO Q8HR NEURONTIN PO TID ALBUTEROL HHN Q4HR NOVOLOG SQ AC&HS RENVELA PO TID COLACE PO TID IV SYNTHROID QD : 2E TELE UNIT DCP: PATIENT TO BE DISCHARGED TO HOME ONCE MEDICALLY CLEARED PLAN: TRANSFUSE PRN GI CONSULT EGD/COLONOSCOPY - HOLD DUE TO PT SOB CXR FOR SOB
--- NOTE | 2019-06-06 16:06 | Nephrology Progress Note ---
Assessment/Plan Problem List: (1) ESRD (end stage renal disease) (2) Hypertension (3) Anemia in chronic kidney disease (CKD) (4) Diabetic nephropathy with proteinuria Assessment GI bleed present with melena, worsening Anemia ESRD h/o Pulm Edema DM HTN Anemia B12 and Iron def CAD Plan HD and UF today- as patient SOB Per GI Adjust BP meds Subjective ROS Limited/Unobtainable: No Constitutional: Reports: malaise, weakness Objective Objective Last 24 Hour Vital Signs Date Time Temp Pulse Resp B/P (MAP) Pulse Ox O2 Delivery O2 Flow Rate FiO2 06/06/19 14:17 88 18 99 Nasal Cannula 3.0 32 87 16 98 06/06/19 13:56 177/78 06/06/19 12:00 98.2 84 19 172/78 (109) 93 06/06/19 11:46 83 06/06/19 09:37 177/78 06/06/19 09:24 88 18 98 Nasal Cannula 4.0 36 87 20 97 06/06/19 09:00 Simple Mask 5.0 06/06/19 08:00 98.2 87 18 177/78 (111) 93 06/06/19 07:58 89 06/06/19 05:55 156/65 06/06/19 04:00 98.4 85 16 156/65 (95) 94 06/06/19 04:00 88 06/06/19 00:13 171/69 06/06/19 00:00 98.1 80 18 171/69 (103) 94 06/06/19 00:00 83 06/05/19 22:25 168/71 06/05/19 21:00 Nasal Cannula 2.0 06/05/19 20:00 91 06/05/19 20:00 99.3 89 16 168/71 (103) 96 06/05/19 16:35 176/71 Intake and Output 06/05/19 06/06/19 19:00 07:00 Intake Total 720 ml 120 ml Balance 720 ml 120 ml Intake Oral 720 ml 120 ml # Voids 4 2 # Bowel Movements 1 7 Laboratory Tests 06/06/19 05:30: White Blood Count 4.1#L, Red Blood Count 2.92L, Hemoglobin 8.9L, Hematocrit 26.6L, Mean Corpuscular Volume 91, Mean Corpuscular Hemoglobin 30.5, Mean Corpuscular Hemoglobin Concent 33.4, Red Cell Distribution Width 13.3, Platelet Count 206, Mean Platelet Volume 5.6L, Neutrophils (%) (Auto) 75.8H, Lymphocytes (%) (Auto) 14.1L, Monocytes (%) (Auto) 5.5, Eosinophils (%) (Auto) 2.8, Basophils (%) (Auto) 1.8, Sodium Level 140, Potassium Level 4.2, Chloride Level 104, Carbon Dioxide Level 28, Anion Gap 8, Blood Urea Nitrogen 49H, Creatinine 5.8H, Estimat Glomerular Filtration Rate 7.2, Glucose Level 156H, Calcium Level 7.6L, Phosphorus Level 4.4, Magnesium Level 1.9, Total Bilirubin 0.5, Aspartate Amino Transf (AST/SGOT) 13L, Alanine Aminotransferase (ALT/SGPT) 7L, Alkaline Phosphatase 70, Troponin I 0.009, Total Protein 6.8, Albumin 3.4, Globulin 3.4, Albumin/Globulin Ratio 1.0, Hepatitis B Surface Antigen [Pending] Height (Feet): 5 Height (Inches): 3.00 Weight (Pounds): 167 General Appearance: mild distress Cardiovascular: tachycardia Respiratory/Chest: decreased breath sounds Abdomen: distended Francis Falk MD Jun 06, 2019 16:06
--- NOTE | 2019-06-06 17:45 | Consultation ---
DATE OF CONSULTATION: 06/06/2019 ENDOCRINOLOGY CONSULTATION CONSULTING PHYSICIAN: Lavell Archer M.D. REFERRING PHYSICIAN: Makenna Daniel M.D. REASON FOR CONSULTATION: Diabetes management. HISTORY OF PRESENT ILLNESS: The patient is a 69-year-old female with history of diabetes with a recent admission to [facility]. She has end-stage renal disease on hemodialysis and diabetes presented with dark stools, drop in hemoglobin, GI bleed, currently NPO for GI procedure. PAST MEDICAL HISTORY: 1. End-stage renal disease, on hemodialysis. 2. Hypertension. 3. Diabetic nephropathy. 4. Cholelithiasis. 5. Aortic stenosis. 6. Colonic polyps. 7. Dyslipidemia. 8. Hypothyroidism. MEDICATIONS: Reviewed and reconciled. ALLERGIES TO MEDICATION: None. SOCIAL HISTORY: No history of smoking, alcohol, or drug use. REVIEW OF SYSTEMS: A 12-point review of systems was performed and the pertinent positives in history of present illness. LABORATORY VALUES: WBC 2.7, hemoglobin 7.3, hematocrit 22, platelet of 189. Sodium 140, potassium 4.1, chloride 91, bicarb 35, BUN 56, creatinine 5.6, glucose of180. TSH of 4.8. PHYSICAL EXAMINATION: GENERAL: Awake. VITAL SIGNS: Blood pressure is 156/65, pulse 85, temperature 98.4, respiratory rate 16. HEENT: Pupils are reactive to light. Sclerae are anicteric. NECK: No JVD. HEART: Regular. LUNGS: Clear. ABDOMEN: Positive bowel sounds EXTREMITIES: Trace edema. DIAGNOSES: 1. Anemia. 2. GI bleeding. 3. End-stage renal disease. 4. Diabetes out of control. DISCUSSION: 1. On scheduled insulin as an outpatient. 2. Currently, she is NPO. 3. Blood glucose is stable. 4. I will continue Humalog sliding scale every 6 hours hours. 5. Basal insulin will be added according to glucose values . 6. We will follow the patient closely during hospital stay. Thank you Dr. Daniel, for the courtesy of this consultation. Lavell Archer M.D. DR: SIDNEY/chito JOB#: [id number] CC: EDGAR
--- NOTE | 2019-06-06 19:21 | NUR ---
HAND-OFF: Report given to ana cristina montalvo.
--- NOTE | 2019-06-06 19:59 | NUR ---
NURSE NOTES: Received pt from SIDNEY Gonzalez. Pt asleep. Bed in lowest position. Call light within reach. Will continue to monitor.
[2019-06-06] MEDS ORDERED: Epoetin Alfa-EPBX(ESRD on dialysis)3000 units/ml vial SUBQ SCH (21:00)
--- NOTE | 2019-06-06 21:33 | General Progress Note ---
Assessment/Plan Problem List: (1) Renal failure ICD Codes: N19 - Unspecified kidney failure SNOMED: 90839085 (2) Black tarry stools ICD Codes: K92.1 - Melena SNOMED: 695557160 (3) ESRD (end stage renal disease) ICD Codes: N18.6 - End stage renal disease SNOMED: 17363209 (4) Hypertension ICD Codes: I10 - Essential (primary) hypertension SNOMED: 84350727 (5) Anemia in chronic kidney disease (CKD) ICD Codes: N18.9 - Chronic kidney disease, unspecified; D63.1 - Anemia in chronic kidney disease SNOMED: 207824921 (6) Diabetic nephropathy with proteinuria ICD Codes: E11.21 - Type 2 diabetes mellitus with diabetic nephropathy SNOMED: 16470313, 556652229 Status: not improved Assessment/Plan: asthma exacerbation had to cancel endoscopy due to sob gi bleed esrd on hd r/o fluid overload HD PER dr stearns Subjective ROS Limited/Unobtainable: Yes Allergies: Coded Allergies: No Known Allergies (Unverified , 05/12/17) Objective Last 24 Hour Vital Signs Date Time Temp Pulse Resp B/P (MAP) Pulse Ox O2 Delivery O2 Flow Rate FiO2 06/06/19 21:08 191/71 06/06/19 19:36 81 18 97 Nasal Cannula 2.0 28 06/06/19 19:34 84 18 100 Nasal Cannula 3.0 32 81 18 97 06/06/19 16:00 97.9 77 18 165/68 (100) 98 06/06/19 15:11 85 06/06/19 14:17 88 18 99 Nasal Cannula 3.0 32 87 16 98 06/06/19 13:56 177/78 06/06/19 12:00 98.2 84 19 172/78 (109) 93 06/06/19 11:46 83 06/06/19 09:37 177/78 06/06/19 09:24 88 18 98 Nasal Cannula 4.0 36 87 20 97 06/06/19 09:00 Simple Mask 5.0 06/06/19 08:00 98.2 87 18 177/78 (111) 93 06/06/19 07:58 89 06/06/19 05:55 156/65 06/06/19 04:00 98.4 85 16 156/65 (95) 94 06/06/19 04:00 88 06/06/19 00:13 171/69 06/06/19 00:00 98.1 80 18 171/69 (103) 94 06/06/19 00:00 83 06/05/19 22:25 168/71 Intake and Output 06/05/19 06/06/19 19:00 07:00 Intake Total 720 ml 120 ml Balance 720 ml 120 ml Intake Oral 720 ml 120 ml # Voids 4 2 # Bowel Movements 1 7 Laboratory Tests 06/06/19 05:30: White Blood Count 4.1#L, Red Blood Count 2.92L, Hemoglobin 8.9L, Hematocrit 26.6L, Mean Corpuscular Volume 91, Mean Corpuscular Hemoglobin 30.5, Mean Corpuscular Hemoglobin Concent 33.4, Red Cell Distribution Width 13.3, Platelet Count 206, Mean Platelet Volume 5.6L, Neutrophils (%) (Auto) 75.8H, Lymphocytes (%) (Auto) 14.1L, Monocytes (%) (Auto) 5.5, Eosinophils (%) (Auto) 2.8, Basophils (%) (Auto) 1.8, Sodium Level 140, Potassium Level 4.2, Chloride Level 104, Carbon Dioxide Level 28, Anion Gap 8, Blood Urea Nitrogen 49H, Creatinine 5.8H, Estimat Glomerular Filtration Rate 7.2, Glucose Level 156H, Calcium Level 7.6L, Phosphorus Level 4.4, Magnesium Level 1.9, Total Bilirubin 0.5, Aspartate Amino Transf (AST/SGOT) 13L, Alanine Aminotransferase (ALT/SGPT) 7L, Alkaline Phosphatase 70, Troponin I 0.009, Total Protein 6.8, Albumin 3.4, Globulin 3.4, Albumin/Globulin Ratio 1.0, Hepatitis B Surface Antigen [Pending] Height (Feet): 5 Height (Inches): 3.00 Weight (Pounds): 167 Cardiovascular: normal rate Respiratory/Chest: accessory muscle use, inspiratory wheezing Makenna Daniel MD Jun 06, 2019 21:33
--- NOTE | 2019-06-06 22:15 | Consultation ---
DATE OF CONSULTATION: 06/06/2019 CARDIOLOGY CONSULTATION CONSULTING PHYSICIAN: Zev Alfonso M.D. REFERRING PHYSICIAN: Makenna Daniel M.D. REASON FOR CONSULTATION: Shortness of breath. HISTORY OF PRESENT ILLNESS: The patient is a 69-year-old lady with history of hypertension, end-stage renal disease, on hemodialysis on Thursday, Thursday, and Thursday, was admitted to the hospital for black stool. The patient had a recent endoscopy after episode of bleeding. The patient was scheduled for colonoscopy by Dr. Leonard. However, the patient was quite short of breath. The chest x-ray and EKG was obtained and a Cardiology consultation was obtained for further evaluation. REVIEW OF SYSTEMS: Review of systems was negative other than what was mentioned in the history of present illness. PAST MEDICAL HISTORY: 1. Hypertension. 2. Diabetes. 3. End-stage renal disease, on hemodialysis. 4. Questionable coronary artery disease. 5. History of gastrointestinal bleed. FAMILY HISTORY: Noncontributory. SOCIAL HISTORY: She lives at home. Does not smoke or drink alcohol. PHYSICAL EXAMINATION: VITAL SIGNS: Blood pressure is 177/78, pulse is 88, respirations 18, and temperature 98.2. HEAD AND NECK: Shows mild JVD. LUNGS: Decreased breath sounds. CARDIOVASCULAR: Shows regular S1 and S2 with no gallop or murmur. ABDOMEN: Soft. EXTREMITIES: No pitting edema. LABORATORY AND DIAGNOSTIC DATA: Her EKG showed sinus rhythm with nonspecific ST abnormalities and prolonged QT. Laboratory show WBC 4.1, hemoglobin 8.9, hematocrit 26, and platelet count is 206,000. Sodium is 140, potassium 4.2, BUN of , and creatinine 5.9. Troponin negative x3. ASSESSMENT AND PLAN: 1. Shortness of breath. The patient is already ruled out for myocardial infarction by serial cardiac enzymes. We will get an echocardiogram to evaluate for ejection fraction and wall motion abnormality. Her most recent echocardiogram was on April 19, 2019 that showed an ejection fraction of 50%, aortic stenosis, and aortic valve area of 1.5 centimeter square. 2. End-stage renal disease, on hemodialysis. The patient is likely volume overloaded. Further evaluation by Dr. Falk. 3. Anemia, hemoglobin 7.3. 4. End-stage renal disease, on hemodialysis. Of note, the patient's troponins are also negative. 5. Hypertension. The patient is already on hydralazine 50 mg every 8 hours as well p.r.n. IV hydralazine. Thank you very much for allowing me to participate in the care of this patient. Please do not hesitate to contact me for any questions regarding my evaluation. Zev Gatica M.D. DR: AYDIN JOB#: [id number] CC:
[2019-06-07] MEDS: Albuterol/Ipratropium 3ml neb HHN SCH ×6 (02:28→19:51)
[2019-06-07] MEDS: D5NS 1,000 ML IV SCH (03:30)
[2019-06-07 04:00] VITALS: BP 149/70
[2019-06-07] MEDS: HydrALAZINE 50mg tab ORAL SCH ×3 (05:30→20:58)
[2019-06-07] MEDS: NovoLOG Insulin Flexpen SUBQ SCH ×4 (05:31→21:01)
--- NOTE | 2019-06-07 05:49 | Hematology/Onc Progress Note ---
Assessment/Plan Assessment/Plan Assessment/Plan: 1. Anemia due to underlying chronic disease. Have reviewed prior workup, ferritin is >1000, though percent saturation Tsat <30, but not recommended for further iron --> Continue to closely monitor. --> Transfuse if hgb <7 --> ferritin is >600 --> give epogen, has been started 3x a week --> as per renal --> monitor for gi bleed, gi consulted(for COLO/EGD) --> hgb trend 7.4-->8.9 2. Leukopenia likely reactive process v infection v from meds --> hepatitis and hiv prior negative --> neutropenic precautions if ANC <1500 --> trending stable --> imaging reviewed and no hsm / cirrhosis noted --> wbc 2.7-->4 --> neupogen if wbc lower or any signs of infection --> ANC goal >1500 3. End-stage renal disease, on hemodialysis three times a week. --> renal consulted --> continue hd 4. History of coronary artery disease. --> cards reviewed --> diuresis prn 5. History of anemia due to low B12, low iron --> b12 is currently within normal limits --> reobtain q6mo 6. Dizziness and unsteady gait 7. DVt ppsx with SCDs Greatly appreciate consultation and Dw RN am. Subjective HEENT: Denies: no symptoms, eye pain, blurred vision, tearing, double vision, ear pain, ear discharge, nose pain, nose congestion, throat pain, throat swelling, mouth pain, mouth swelling, other Cardiovascular: Denies: no symptoms, chest pain, edema, irregular heart rate, lightheadedness, palpitations, syncope, other Respiratory: Denies: no symptoms, cough, shortness of breath, SOB with excertion, SOB at rest, sputum, wheezing, other Gastrointestinal/Abdominal: Denies: no symptoms, abdomen distended, abdominal pain, black stools, tarry stools, blood in stool, constipated, diarrhea, difficulty swallowing, nausea, poor appetite, poor fluid intake, rectal bleeding , vomiting, other Genitourinary: Denies: no symptoms, burning, discharge, frequency, flank pain, hematuria, incontinence, pain, urgency, other Neurologic/Psychiatric: Denies: no symptoms, anxiety, depressed, emotional problems, headache, numbness, paresthesia, pre-existing deficit, seizure, tingling, tremors, weakness, other Endocrine: Denies: no symptoms, excessive sweating, flushing, intolerance to cold, intolerance to heat, increased hunger, increased thirst, increased urine, unexplained weight gain, unexplained weight loss, other Allergies: Coded Allergies: No Known Allergies (Unverified , 05/12/17) Subjective 06/06: no events, egdcolo cancelled bc sob, cards seen eval reviewed, trop neg 06/07: no bleeding or chills, cbc is pending, hd was done yesterday Objective Objective Current Medications Medications (Trade) Dose Ordered Sig/Toya Route PRN Reason Start Time Stop Time Status Last Admin Dose Admin Acetaminophen (Tylenol) 650 mg Q4H PRN ORAL Mild Pain/Temp > 100.5 06/06/19 10:30 07/06/19 10:29 06/06/19 10:40 Albuterol/ Ipratropium (Albuterol/ Ipratropium) 3 ml Q4HRT HHN 06/06/19 15:00 06/11/19 14:59 06/06/19 22:32 Dextrose (Dextrose 50%) 25 ml Q30M PRN IV Hypoglycemia 06/04/19 17:15 07/04/19 17:14 Dextrose (Dextrose 50%) 50 ml Q30M PRN IV Hypoglycemia 06/04/19 17:15 07/04/19 17:14 Dextrose/Sodium Chloride 1,000 ml @ 50 mls/hr Q20H IV 06/04/19 15:30 07/04/19 15:29 06/07/19 03:30 Docusate Sodium (Colace) 100 mg THREE TIMES A DAY ORAL 06/05/19 13:00 07/05/19 12:59 Epoetin Panchito (Epoetin Panchito(ESRD on dialysis)) 3,000 unit THU-THU-THU SUBQ 06/06/19 21:00 07/06/19 20:59 06/06/19 21:07 Gabapentin (Neurontin) 200 mg THREE TIMES A DAY ORAL 06/04/19 18:00 07/04/19 17:59 06/06/19 17:11 Hydralazine HCl (Apresoline) 10 mg Q4H PRN IV bp over 165 syst 06/04/19 15:45 07/04/19 15:44 06/06/19 23:44 Hydralazine HCl (Apresoline) 50 mg Q8HR ORAL 06/04/19 22:00 07/04/19 21:59 06/07/19 05:30 Insulin Aspart (NovoLOG) BEFORE MEALS AND HS SUBQ 06/05/19 21:00 07/05/19 20:59 06/07/19 05:31 Levothyroxine Sodium (Synthroid) 50 mcg DAILY IV 06/05/19 09:00 07/05/19 08:59 06/06/19 09:34 Pantoprazole (Protonix) 40 mg EVERY 12 HOURS IVP 06/04/19 21:00 07/04/19 20:59 06/06/19 21:06 Sevelamer Carbonate (Renvela) 800 mg THREE TIMES A DAY ORAL 06/05/19 13:00 07/05/19 12:59 06/06/19 17:11 Last 24 Hour Vital Signs Date Time Temp Pulse Resp B/P (MAP) Pulse Ox O2 Delivery O2 Flow Rate FiO2 06/07/19 05:30 149/70 06/07/19 04:00 97.0 86 21 149/70 (96) 99 06/07/19 04:00 70 06/07/19 00:00 81 06/06/19 23:44 184/71 06/06/19 23:42 97.9 83 20 184/71 (108) 98 06/06/19 22:32 80 18 100 Nasal Cannula 3.0 32 78 18 99 06/06/19 21:08 191/71 06/06/19 21:00 Nasal Cannula 2.0 06/06/19 20:00 81 06/06/19 20:00 98.1 78 20 191/71 (111) 98 06/06/19 19:36 81 18 97 Nasal Cannula 2.0 28 06/06/19 19:34 84 18 100 Nasal Cannula 3.0 32 81 18 97 06/06/19 16:00 97.9 77 18 165/68 (100) 98 06/06/19 15:11 85 06/06/19 14:17 88 18 99 Nasal Cannula 3.0 32 87 16 98 06/06/19 13:56 177/78 06/06/19 12:00 98.2 84 19 172/78 (109) 93 06/06/19 11:46 83 06/06/19 09:37 177/78 06/06/19 09:24 88 18 98 Nasal Cannula 4.0 36 87 20 97 06/06/19 09:00 Simple Mask 5.0 06/06/19 08:00 98.2 87 18 177/78 (111) 93 06/06/19 07:58 89 06/06/19 05:55 156/65 06/06/19 04:00 98.4 85 16 156/65 (95) 94 06/06/19 04:00 88 06/06/19 00:13 171/69 06/06/19 00:00 98.1 80 18 171/69 (103) 94 06/06/19 00:00 83 06/05/19 22:25 168/71 06/05/19 21:00 Nasal Cannula 2.0 06/05/19 20:00 91 06/05/19 20:00 99.3 89 16 168/71 (103) 96 06/05/19 16:35 176/71 06/05/19 16:00 97.9 73 18 153/59 (90) 95 06/05/19 16:00 77 06/05/19 15:50 97.8 74 18 153/59 (90) 94 06/05/19 15:35 97.5 75 18 137/62 (87) 95 06/05/19 14:14 145/55 06/05/19 12:00 81 06/05/19 12:00 98.0 81 18 145/55 (85) 99 06/05/19 09:00 Nasal Cannula 2.0 06/05/19 08:00 97.8 75 18 136/52 (80) 94 06/05/19 08:00 72 06/05/19 06:41 159/82 Intake and Output 06/06/19 06/07/19 19:00 07:00 Intake Total 400 ml Balance 400 ml IV Total 400 ml # Voids 4 # Bowel Movements 1 1 Labs Test 06/04/19 12:30 06/05/19 06:04 06/06/19 05:30 White Blood Count 3.0 K/UL (4.8-10.8) 2.7 K/UL (4.8-10.8) 4.1 K/UL (4.8-10.8) Red Blood Count 2.88 M/UL (4.20-5.40) 2.38 M/UL (4.20-5.40) 2.92 M/UL (4.20-5.40) Hemoglobin 8.8 G/DL (12.0-16.0) 7.3 G/DL (12.0-16.0) 8.9 G/DL (12.0-16.0) Hematocrit 26.5 % (37.0-47.0) 22.0 % (37.0-47.0) 26.6 % (37.0-47.0) Mean Corpuscular Volume 92 FL (80-99) 92 FL (80-99) 91 FL (80-99) Mean Corpuscular Hemoglobin 30.7 PG (27.0-31.0) 30.8 PG (27.0-31.0) 30.5 PG (27.0-31.0) Mean Corpuscular Hemoglobin Concent 33.3 G/DL (32.0-36.0) 33.3 G/DL (32.0-36.0) 33.4 G/DL (32.0-36.0) Red Cell Distribution Width 13.2 % (11.6-14.8) 13.1 % (11.6-14.8) 13.3 % (11.6-14.8) Platelet Count 225 K/UL (150-450) 189 K/UL (150-450) 206 K/UL (150-450) Mean Platelet Volume 5.1 FL (6.5-10.1) 6.0 FL (6.5-10.1) 5.6 FL (6.5-10.1) Neutrophils (%) (Auto) % (45.0-75.0) % (45.0-75.0) 75.8 % (45.0-75.0) Lymphocytes (%) (Auto) % (20.0-45.0) % (20.0-45.0) 14.1 % (20.0-45.0) Monocytes (%) (Auto) % (1.0-10.0) % (1.0-10.0) 5.5 % (1.0-10.0) Eosinophils (%) (Auto) % (0.0-3.0) % (0.0-3.0) 2.8 % (0.0-3.0) Basophils (%) (Auto) % (0.0-2.0) % (0.0-2.0) 1.8 % (0.0-2.0) Differential Total Cells Counted 100 100 Neutrophils % (Manual) 61 % (45-75) 57 % (45-75) Lymphocytes % (Manual) 26 % (20-45) 27 % (20-45) Monocytes % (Manual) 11 % (1-10) 11 % (1-10) Eosinophils % (Manual) 2 % (0-3) 5 % (0-3) Basophils % (Manual) 0 % (0-2) 0 % (0-2) Band Neutrophils 0 % (0-8) 0 % (0-8) Platelet Estimate Adequate Adequate Platelet Morphology Normal Normal Hypochromasia 1+ 1+ Prothrombin Time 12.0 SEC (9.30-11.50) Prothromb Time International Ratio 1.1 (0.9-1.1) Activated Partial Thromboplast Time 30 SEC (23-33) Sodium Level 139 MMOL/L (136-145) 140 MMOL/L (136-145) 140 MMOL/L (136-145) Potassium Level 3.9 MMOL/L (3.5-5.1) 4.1 MMOL/L (3.5-5.1) 4.2 MMOL/L (3.5-5.1) Chloride Level 95 MMOL/L (98-107) 99 MMOL/L (98-107) 104 MMOL/L (98-107) Carbon Dioxide Level 39 MMOL/L (21-32) 35 MMOL/L (21-32) 28 MMOL/L (21-32) Anion Gap 5 mmol/L (5-15) 6 mmol/L (5-15) 8 mmol/L (5-15) Blood Urea Nitrogen 45 mg/dL (7-18) 53 mg/dL (7-18) 49 mg/dL (7-18) Creatinine 4.8 MG/DL (0.55-1.30) 5.6 MG/DL (0.55-1.30) 5.8 MG/DL (0.55-1.30) Estimat Glomerular Filtration Rate 9.0 mL/min (>60) 7.5 mL/min (>60) 7.2 mL/min (>60) Glucose Level 219 MG/DL (74-106) 151 MG/DL (74-106) 156 MG/DL (74-106) Calcium Level 7.5 MG/DL (8.5-10.1) 7.1 MG/DL (8.5-10.1) 7.6 MG/DL (8.5-10.1) Total Bilirubin 0.5 MG/DL (0.2-1.0) 0.4 MG/DL (0.2-1.0) 0.5 MG/DL (0.2-1.0) Aspartate Amino Transf (AST/SGOT) 14 U/L (15-37) 9 U/L (15-37) 13 U/L (15-37) Alanine Aminotransferase (ALT/SGPT) 9 U/L (12-78) < 6 U/L (12-78) 7 U/L (12-78) Alkaline Phosphatase 82 U/L (46-116) 67 U/L (46-116) 70 U/L (46-116) Troponin I 0.044 ng/mL (0.000-0.056) 0.038 ng/mL (0.000-0.056) 0.009 ng/mL (0.000-0.056) Total Protein 7.2 G/DL (6.4-8.2) 6.4 G/DL (6.4-8.2) 6.8 G/DL (6.4-8.2) Albumin 3.6 G/DL (3.4-5.0) 3.2 G/DL (3.4-5.0) 3.4 G/DL (3.4-5.0) Globulin 3.6 g/dL 3.2 g/dL 3.4 g/dL Albumin/Globulin Ratio 1.0 (1.0-2.7) 1.0 (1.0-2.7) 1.0 (1.0-2.7) Lipase 110 U/L (73-393) Hemoglobin A1c 6.2 % (4.3-6.0) Uric Acid 5.1 MG/DL (2.6-7.2) Phosphorus Level 5.0 MG/DL (2.5-4.9) 4.4 MG/DL (2.5-4.9) Magnesium Level 1.8 MG/DL (1.8-2.4) 1.9 MG/DL (1.8-2.4) Iron Level 71 ug/dL (50-175) Total Iron Binding Capacity 193 ug/dL (250-450) Percent Iron Saturation 37 % (15-50) Unsaturated Iron Binding 122 ug/dL (112-346) Ferritin 634 NG/ML (8-388) Gamma Glutamyl Transpeptidase 28 U/L (5-85) C-Reactive Protein, Quantitative < 0.4 mg/dL (0.00-0.90) Pro-B-Type Natriuretic Peptide 16206 pg/mL (0-125) Triglycerides Level 149 MG/DL (30-150) Cholesterol Level 123 MG/DL (< 200) LDL Cholesterol 65 mg/dL (<100) HDL Cholesterol 33 MG/DL (40-60) Cholesterol/HDL Ratio 3.7 (3.3-4.4) Vitamin B12 Level 372 PG/ML (193-986) Folate 10.7 NG/ML (8.6-58.9) Thyroid Stimulating Hormone (TSH) 4.819 uiU/mL (0.358-3.740) Height (Feet): 5 Height (Inches): 3.00 Weight (Pounds): 167 Carl Daniels MD Jun 07, 2019 05:49
--- NOTE | 2019-06-07 06:33 | General Progress Note ---
Assessment/Plan Problem List: (1) ESRD (end stage renal disease) ICD Codes: N18.6 - End stage renal disease SNOMED: 62734987 (2) Diabetic nephropathy with proteinuria ICD Codes: E11.21 - Type 2 diabetes mellitus with diabetic nephropathy SNOMED: 98033860, 956193313 (3) Hypertensive kidney disease ICD Codes: I12.9 - Hypertensive chronic kidney disease with stage 1 through stage 4 chronic kidney disease, or unspecified chronic kidney disease SNOMED: 31146529 Status: not improved Assessment/Plan: add Levemir 8 units daily continue Novolog insulin coverage Subjective Allergies: Coded Allergies: No Known Allergies (Unverified , 05/12/17) All Systems: reviewed and negative except above Subjective events noted Item Value Date Time Bedside Blood Glucose 205 mg/dl H 06/07/19 0531 Bedside Blood Glucose 143 mg/dl H 06/06/19 1713 Bedside Blood Glucose 188 mg/dl H 06/06/19 1218 Bedside Blood Glucose 163 mg/dl H 06/06/19 0600 Bedside Blood Glucose 125 mg/dl H 06/06/19 0000 Objective Last 24 Hour Vital Signs Date Time Temp Pulse Resp B/P (MAP) Pulse Ox O2 Delivery O2 Flow Rate FiO2 06/07/19 05:30 149/70 06/07/19 04:00 97.0 86 21 149/70 (96) 99 06/07/19 04:00 70 06/07/19 00:00 81 06/06/19 23:44 184/71 06/06/19 23:42 97.9 83 20 184/71 (108) 98 06/06/19 22:32 80 18 100 Nasal Cannula 3.0 32 78 18 99 06/06/19 21:08 191/71 06/06/19 21:00 Nasal Cannula 2.0 06/06/19 20:00 81 06/06/19 20:00 98.1 78 20 191/71 (111) 98 06/06/19 19:36 81 18 97 Nasal Cannula 2.0 28 06/06/19 19:34 84 18 100 Nasal Cannula 3.0 32 81 18 97 06/06/19 16:00 97.9 77 18 165/68 (100) 98 06/06/19 15:11 85 06/06/19 14:17 88 18 99 Nasal Cannula 3.0 32 87 16 98 06/06/19 13:56 177/78 06/06/19 12:00 98.2 84 19 172/78 (109) 93 06/06/19 11:46 83 06/06/19 09:37 177/78 06/06/19 09:24 88 18 98 Nasal Cannula 4.0 36 87 20 97 06/06/19 09:00 Simple Mask 5.0 06/06/19 08:00 98.2 87 18 177/78 (111) 93 06/06/19 07:58 89 Intake and Output 06/06/19 06/07/19 19:00 07:00 Intake Total 400 ml Balance 400 ml IV Total 400 ml # Voids 4 2 # Bowel Movements 1 1 Height (Feet): 5 Height (Inches): 3.00 Weight (Pounds): 167 General Appearance: no apparent distress Neck: normal alignment Cardiovascular: normal rate Abdomen: normal bowel sounds Pelvis: normal external exam Objective Current Medications Medications (Trade) Dose Ordered Sig/Toya Route PRN Reason Start Time Stop Time Status Last Admin Dose Admin Acetaminophen (Tylenol) 650 mg Q4H PRN ORAL Mild Pain/Temp > 100.5 06/06/19 10:30 07/06/19 10:29 06/06/19 10:40 Albuterol/ Ipratropium (Albuterol/ Ipratropium) 3 ml Q4HRT HHN 06/06/19 15:00 06/11/19 14:59 06/06/19 22:32 Dextrose (Dextrose 50%) 25 ml Q30M PRN IV Hypoglycemia 06/04/19 17:15 07/04/19 17:14 Dextrose (Dextrose 50%) 50 ml Q30M PRN IV Hypoglycemia 06/04/19 17:15 07/04/19 17:14 Dextrose/Sodium Chloride 1,000 ml @ 50 mls/hr Q20H IV 06/04/19 15:30 07/04/19 15:29 06/07/19 03:30 Docusate Sodium (Colace) 100 mg THREE TIMES A DAY ORAL 06/05/19 13:00 07/05/19 12:59 Epoetin Panchito (Epoetin Panchito(ESRD on dialysis)) 3,000 unit THU-WED-THU SUBQ 06/06/19 21:00 07/06/19 20:59 06/06/19 21:07 Gabapentin (Neurontin) 200 mg THREE TIMES A DAY ORAL 06/04/19 18:00 07/04/19 17:59 06/06/19 17:11 Hydralazine HCl (Apresoline) 10 mg Q4H PRN IV bp over 165 syst 06/04/19 15:45 07/04/19 15:44 06/06/19 23:44 Hydralazine HCl (Apresoline) 50 mg Q8HR ORAL 06/04/19 22:00 07/04/19 21:59 06/07/19 05:30 Insulin Aspart (NovoLOG) BEFORE MEALS AND HS SUBQ 06/05/19 21:00 07/05/19 20:59 06/07/19 05:31 Levothyroxine Sodium (Synthroid) 50 mcg DAILY IV 06/05/19 09:00 07/05/19 08:59 06/06/19 09:34 Pantoprazole (Protonix) 40 mg EVERY 12 HOURS IVP 06/04/19 21:00 07/04/19 20:59 06/06/19 21:06 Sevelamer Carbonate (Renvela) 800 mg THREE TIMES A DAY ORAL 06/05/19 13:00 07/05/19 12:59 06/06/19 17:11 Lavell Archer MD Jun 07, 2019 06:33
[2019-06-07 07:02] LABS: HEMATOCRIT 24.4 % (37.0-47.0); HEMOGLOBIN 8.2 G/DL (12.0-16.0); MEAN CORPUSCULAR VOLUME 93 FL (80-99); PLATELET COUNT 191 K/UL (150-450); RED BLOOD COUNT 2.63 M/UL (4.20-5.40); RED CELL DISTRIBUTION WIDTH 13.3 % (11.6-14.8); WHITE BLOOD COUNT 3.3 K/UL (4.8-10.8)
--- NOTE | 2019-06-07 07:25 | NUR ---
HAND-OFF: Report given to SIDNEY Mckoy. Pt stable.
--- NOTE | 2019-06-07 07:32 | Cardiology Report ---
APPROVED REPORT EKG Measurement Heart [id number] MI [id number] Normal sinus rhythm Nonspecific ST and T wave abnormality Prolonged QT Abnormal ECG
[2019-06-07 07:36] LABS: ANION GAP 5 mmol/L (5-15); BLOOD UREA NITROGEN 25 mg/dL (7-18); CALCIUM 7.6 MG/DL (8.5-10.1); CARBON DIOXIDE 31 MMOL/L (21-32); CHLORIDE 103 MMOL/L (98-107); CREATININE 4.1 MG/DL (0.55-1.30); POTASSIUM 3.8 MMOL/L (3.5-5.1); SODIUM 139 MMOL/L (136-145)
[2019-06-07 08:00] VITALS: BP 162/68
--- NOTE | 2019-06-07 08:11 | NUR ---
NURSE NOTES: Pt in bed in low position, call light at bedside, pt able to ambulated to [facility], Ox4, NPO for capsule endoscopy with consent signed by patient, pt made aware that EGD was cancelled, pt ok with that, IV intact, pt reports no pain therefore denies pain, no s/s of distress or sob noted.
[2019-06-07] MEDS: Levemir Flexpen SUBQ SCH (10:03)
[2019-06-07] MEDS: Docusate 100mg cap ORAL SCH ×3 (10:03→17:54)
[2019-06-07] MEDS: Pantoprazole Inj IVP SCH ×2 (10:08→21:14)
--- NOTE | 2019-06-07 10:35 | NUR ---
CASE MANAGEMENT: REVIEW 06/07/19 SI:ESRD ON HD; DARK STOOLS PMH: ESRD ON HD/ CHF. DM. HTN. 96.8 85 18 162/68 98% NC 2L CA+ 7.6; MG 1.7; WBC 3.3; RBC 2.63; H/H 8.2/24.4; BUN 25; CREAT 4.1; IS: IV HYDRALAZINE Q4/PRN IV DEXTROSE @50HR IV PROTONIX Q12HR HYDRALAZINE PO Q8HR NEURONTIN PO TID ALBUTEROL HHN Q4HR NOVOLOG SQ AC&HS RENVELA PO TID COLACE PO TID IV SYNTHROID QD EPOETIN SQ QOD : 2E TELE UNIT DCP: PATIENT TO BE DISCHARGED TO HOME ONCE MEDICALLY CLEARED PLAN: TRANSFUSE PRN EGD/COLONOSCOPY - HOLD DUE TO PT SOB PILLCAM SMALL BOWEL
[2019-06-07 12:00] VITALS: BP 165/83
[2019-06-07] MEDS ORDERED: Metoprolol 5mg/5ml Inj IVP SCH (12:15)
--- NOTE | 2019-06-07 13:34 | Nephrology Progress Note ---
Assessment/Plan Problem List: (1) ESRD (end stage renal disease) (2) Hypertension (3) Anemia in chronic kidney disease (CKD) (4) Diabetic nephropathy with proteinuria Assessment GI bleed present with melena, worsening Anemia ESRD h/o Pulm Edema DM HTN Anemia B12 and Iron def CAD Plan HD and UF 06/06 next 06/08- Per GI Adjust BP meds per orders Subjective ROS Limited/Unobtainable: No Constitutional: Reports: malaise Objective Objective Last 24 Hour Vital Signs Date Time Temp Pulse Resp B/P (MAP) Pulse Ox O2 Delivery O2 Flow Rate FiO2 06/07/19 12:18 125 165/83 06/07/19 12:11 125 22 98 06/07/19 12:00 98.0 124 22 165/83 (110) 99 06/07/19 11:38 165/82 06/07/19 08:46 Nasal Cannula 2.0 06/07/19 08:00 96.8 85 18 162/68 (99) 98 06/07/19 07:45 85 06/07/19 07:30 82 18 100 Nasal Cannula 3.0 32 84 18 97 06/07/19 07:30 84 18 97 Nasal Cannula 2.0 28 06/07/19 05:30 149/70 06/07/19 04:00 97.0 86 21 149/70 (96) 99 06/07/19 04:00 70 06/07/19 00:00 81 06/06/19 23:44 184/71 06/06/19 23:42 97.9 83 20 184/71 (108) 98 06/06/19 22:32 80 18 100 Nasal Cannula 3.0 32 78 18 99 06/06/19 21:08 191/71 06/06/19 21:00 Nasal Cannula 2.0 06/06/19 20:00 81 06/06/19 20:00 98.1 78 20 191/71 (111) 98 06/06/19 19:36 81 18 97 Nasal Cannula 2.0 28 06/06/19 19:34 84 18 100 Nasal Cannula 3.0 32 81 18 97 06/06/19 16:00 97.9 77 18 165/68 (100) 98 06/06/19 15:11 85 06/06/19 14:17 88 18 99 Nasal Cannula 3.0 32 87 16 98 06/06/19 13:56 177/78 Intake and Output 06/06/19 06/07/19 19:00 07:00 Intake Total 400 ml Balance 400 ml IV Total 400 ml # Voids 4 2 # Bowel Movements 1 1 Laboratory Tests 06/07/19 06:45: White Blood Count 3.3L, Red Blood Count 2.63L, Hemoglobin 8.2L, Hematocrit 24.4L , Mean Corpuscular Volume 93, Mean Corpuscular Hemoglobin 31.1H, Mean Corpuscular Hemoglobin Concent 33.5, Red Cell Distribution Width 13.3, Platelet Count 191, Mean Platelet Volume 4.8L, Neutrophils (%) (Auto) , Lymphocytes (%) ( Auto) , Monocytes (%) (Auto) , Eosinophils (%) (Auto) , Basophils (%) (Auto) , Differential Total Cells Counted 100, Neutrophils % (Manual) 78H, Lymphocytes % (Manual) 16L, Monocytes % (Manual) 3, Eosinophils % (Manual) 1, Basophils % ( Manual) 2, Band Neutrophils 0, Platelet Estimate Adequate, Platelet Morphology Normal, Sodium Level 139, Potassium Level 3.8, Chloride Level 103, Carbon Dioxide Level 31, Anion Gap 5, Blood Urea Nitrogen 25H, Creatinine 4.1H, Estimat Glomerular Filtration Rate 10.8, Glucose Level 169H, Calcium Level 7.6L , Phosphorus Level 4.0, Magnesium Level 1.7L Height (Feet): 5 Height (Inches): 3.00 Weight (Pounds): 167 General Appearance: no apparent distress Cardiovascular: other - variable rate Respiratory/Chest: decreased breath sounds Abdomen: soft Francis Falk MD Jun 07, 2019 13:34
[2019-06-07] MEDS ORDERED: Carvedilol 12.5mg tab ORAL SCH (13:45)
--- NOTE | 2019-06-07 14:22 | Diagnostic Imaging Report ---
APPROVED REPORT CPT Code: 80994 Present Symptoms Shortness of breath BILATERAL: Imaging reveals a patent deep venous system bilaterally. There is no evidence of thrombus within the femoral, popliteal or tibial segments. The greater saphenous veins are also within normal limits. Doppler indicates normal spontaneous flow within these segments.
[2019-06-07 16:12] VITALS: BP 142/65
--- NOTE | 2019-06-07 17:11 | NUR ---
NURSE NOTES: Called V IP for HD for 06/08... spoke to chaim
--- NOTE | 2019-06-07 19:00 | Cardiac Electrophysiology PN ---
Assessment/Plan Assessment/Plan 1. Chest pain and Shortness of breath. Already ruled out for myocardial infarction by serial cardiac enzymes. Her echocardiogram was on April 19, 2019 showed an ejection fraction of 50%, aortic stenosis, and aortic valve area of 1.5 centimeter square. 2. End-stage renal disease, on hemodialysis. The patient is likely volume overloaded. Further evaluation by Dr. Falk. 3. Anemia, hemoglobin 7.3. 4. Hypertension. On hydralazine 50 mg every 8 hours, HD and p.r.n. IV hydralazine. DW RN Subjective Subjective Had sinus tachy and chest pain. Ruled out for [place]. ECG non ischemic. EF 50% Objective Last 24 Hour Vital Signs Date Time Temp Pulse Resp B/P (MAP) Pulse Ox O2 Delivery O2 Flow Rate FiO2 06/07/19 16:22 81 06/07/19 16:12 99.1 86 18 142/65 (90) 06/07/19 15:24 82 18 99 Nasal Cannula 2.0 28 82 18 97 06/07/19 13:58 92 165/83 06/07/19 13:58 165/83 06/07/19 12:18 125 165/83 06/07/19 12:11 125 22 98 06/07/19 12:00 98.0 124 22 165/83 (110) 99 06/07/19 11:49 121 06/07/19 11:38 165/82 06/07/19 08:46 Nasal Cannula 2.0 06/07/19 08:00 96.8 85 18 162/68 (99) 98 06/07/19 07:45 85 06/07/19 07:30 82 18 100 Nasal Cannula 3.0 32 84 18 97 06/07/19 07:30 84 18 97 Nasal Cannula 2.0 28 06/07/19 05:30 149/70 06/07/19 04:00 97.0 86 21 149/70 (96) 99 06/07/19 04:00 70 06/07/19 00:00 81 06/06/19 23:44 184/71 06/06/19 23:42 97.9 83 20 184/71 (108) 98 06/06/19 22:32 80 18 100 Nasal Cannula 3.0 32 78 18 99 06/06/19 21:08 191/71 06/06/19 21:00 Nasal Cannula 2.0 06/06/19 20:00 81 06/06/19 20:00 98.1 78 20 191/71 (111) 98 06/06/19 19:36 81 18 97 Nasal Cannula 2.0 28 06/06/19 19:34 84 18 100 Nasal Cannula 3.0 32 81 18 97 Intake and Output 06/06/19 06/07/19 19:00 07:00 Intake Total 400 ml Balance 400 ml IV Total 400 ml # Voids 4 2 # Bowel Movements 1 1 Laboratory Tests Test 06/07/19 06:45 White Blood Count 3.3 K/UL (4.8-10.8) L Red Blood Count 2.63 M/UL (4.20-5.40) L Hemoglobin 8.2 G/DL (12.0-16.0) L Hematocrit 24.4 % (37.0-47.0) L Mean Corpuscular Volume 93 FL (80-99) Mean Corpuscular Hemoglobin 31.1 PG (27.0-31.0) H Mean Corpuscular Hemoglobin Concent 33.5 G/DL (32.0-36.0) Red Cell Distribution Width 13.3 % (11.6-14.8) Platelet Count 191 K/UL (150-450) Mean Platelet Volume 4.8 FL (6.5-10.1) L Neutrophils (%) (Auto) % (45.0-75.0) Lymphocytes (%) (Auto) % (20.0-45.0) Monocytes (%) (Auto) % (1.0-10.0) Eosinophils (%) (Auto) % (0.0-3.0) Basophils (%) (Auto) % (0.0-2.0) Differential Total Cells Counted 100 Neutrophils % (Manual) 78 % (45-75) H Lymphocytes % (Manual) 16 % (20-45) L Monocytes % (Manual) 3 % (1-10) Eosinophils % (Manual) 1 % (0-3) Basophils % (Manual) 2 % (0-2) Band Neutrophils 0 % (0-8) Platelet Estimate Adequate Platelet Morphology Normal Sodium Level 139 MMOL/L (136-145) Potassium Level 3.8 MMOL/L (3.5-5.1) Chloride Level 103 MMOL/L (98-107) Carbon Dioxide Level 31 MMOL/L (21-32) Anion Gap 5 mmol/L (5-15) Blood Urea Nitrogen 25 mg/dL (7-18) H Creatinine 4.1 MG/DL (0.55-1.30) H Estimat Glomerular Filtration Rate 10.8 mL/min (>60) Glucose Level 169 MG/DL (74-106) H Calcium Level 7.6 MG/DL (8.5-10.1) L Phosphorus Level 4.0 MG/DL (2.5-4.9) Magnesium Level 1.7 MG/DL (1.8-2.4) L Objective HEAD AND NECK: Mild JVD. LUNGS: Decreased breath sounds. CARDIOVASCULAR: Regular S1 and S2 with no gallop or murmur. ABDOMEN: Soft. EXTREMITIES: No pitting edema. Zev Gatica MD Jun 07, 2019 19:00
--- NOTE | 2019-06-07 19:36 | NUR ---
HAND-OFF: Report given to Danica Kemp.
--- NOTE | 2019-06-07 19:37 | General Progress Note ---
Assessment/Plan Status: not improved Assessment/Plan: Assessmentd - Heme (+) stools - anemia - recurrent GI Bleed - colon polyps - gastritis - hemorrhoids - ESRD / HD Recommendations - f/u capsule endo result later this week - advance po diet - EGD/Colon cancelled/postponed due to dyspnea - supportive care - HD per renal Subjective Allergies: Coded Allergies: No Known Allergies (Unverified , 05/12/17) Subjective Better today breathing better had capsule endoscopy this am Objective Last 24 Hour Vital Signs Date Time Temp Pulse Resp B/P (MAP) Pulse Ox O2 Delivery O2 Flow Rate FiO2 06/07/19 16:22 81 06/07/19 16:12 99.1 86 18 142/65 (90) 06/07/19 15:24 82 18 99 Nasal Cannula 2.0 28 82 18 97 06/07/19 13:58 92 165/83 06/07/19 13:58 165/83 06/07/19 12:18 125 165/83 06/07/19 12:11 125 22 98 06/07/19 12:00 98.0 124 22 165/83 (110) 99 06/07/19 11:49 121 06/07/19 11:38 165/82 06/07/19 08:46 Nasal Cannula 2.0 06/07/19 08:00 96.8 85 18 162/68 (99) 98 06/07/19 07:45 85 06/07/19 07:30 82 18 100 Nasal Cannula 3.0 32 84 18 97 06/07/19 07:30 84 18 97 Nasal Cannula 2.0 28 06/07/19 05:30 149/70 06/07/19 04:00 97.0 86 21 149/70 (96) 99 06/07/19 04:00 70 06/07/19 00:00 81 06/06/19 23:44 184/71 06/06/19 23:42 97.9 83 20 184/71 (108) 98 06/06/19 22:32 80 18 100 Nasal Cannula 3.0 32 78 18 99 06/06/19 21:08 191/06/06/19 21:00 Nasal Cannula 2.0 06/06/19 20:00 81 06/06/19 20:00 98.1 78 20 191/ (111) 98 11/4/19 19:36 81 18 97 Nasal Cannula 2.0 28 Intake and Output 06/06/19 06/07/19 19:00 07:00 Intake Total 400 ml Balance 400 ml IV Total 400 ml # Voids 4 2 # Bowel Movements 1 1 Laboratory Tests 06/07/19 06:45: White Blood Count 3.3L, Red Blood Count 2.63L, Hemoglobin 8.2L, Hematocrit 24.4L , Mean Corpuscular Volume 93, Mean Corpuscular Hemoglobin 31.1H, Mean Corpuscular Hemoglobin Concent 33.5, Red Cell Distribution Width 13.3, Platelet Count 191, Mean Platelet Volume 4.8L, Neutrophils (%) (Auto) , Lymphocytes (%) ( Auto) , Monocytes (%) (Auto) , Eosinophils (%) (Auto) , Basophils (%) (Auto) , Differential Total Cells Counted 100, Neutrophils % (Manual) 78H, Lymphocytes % (Manual) 16L, Monocytes % (Manual) 3, Eosinophils % (Manual) 1, Basophils % ( Manual) 2, Band Neutrophils 0, Platelet Estimate Adequate, Platelet Morphology Normal, Sodium Level 139, Potassium Level 3.8, Chloride Level 103, Carbon Dioxide Level 31, Anion Gap 5, Blood Urea Nitrogen 25H, Creatinine 4.1H, Estimat Glomerular Filtration Rate 10.8, Glucose Level 169H, Calcium Level 7.6L , Phosphorus Level 4.0, Magnesium Level 1.7L Height (Feet): 5 Height (Inches): 3.00 Weight (Pounds): 167 Objective WDWN NCAT supple CTA RRR abd soft no edema Ramakrishna Leonard MD Jun 07, 2019 19:37
--- NOTE | 2019-06-07 19:37 | NUR ---
NURSE NOTES: Received pt from SIDNEY Mckoy. Pt awake, alert, and talkative. Bed in lowest position. Call light within reach. Will continue to monitor.
[2019-06-07 20:00] VITALS: BP 138/69
--- NOTE | 2019-06-07 20:48 | Pulmonology Progress Note ---
Assessment/Plan Assessment/Plan Pulmonary Progress Note HPI Patient is a 69 year old woman with past medical history of End Stage Renal Disease on MWF HD, CAD, Hypertension, Type 2 Diabetes, Asthma, Hypothyroidism, GERD, Gastritis, Colonic Polyps, B12 deficiency, Anemia, who presented after increased generalized weakness and dizziness, persistently black stool. Denies fevers, chest pain, has some shortness of breath. She had recent endoscopy after episode of bleeding. She had noticed continued bleeding in her stools . Has had mild pain in her abdomen. Denies any alcohol use. Less SOB sp HD Allergies: No Known Allergies Past Medical History: Asthma, End Stage Renal Disease on MWF HD, Hypertension, CAD, Hypertensive Heart Disease, Type 2 Diabetes, Hypothyroidism, GERD, Gastritis, Colonic Polyps, B12 deficiency, Anemia All Other Systems: negative except mentioned in HPI Physical Exam Vital Signs Noted General Appearance: normal inspection, well appearing, no apparent distress, alert, GCS 15 Head: atraumatic ENT: moist mm, no lN, JVP 8cm Neck: normal inspection, full range of motion, supple, no bony tend Respiratory: normal inspection, no respiratory distress, no retraction, no wheezing Cardiovascular: regular rate, rhythm, HS1, HS2 normal, no edema Gastrointestinal: normal inspection, normal bowel sounds, soft,non tender, non distended, no guarding Musculoskeletal: normal inspection, back normal, normal range of motion Neurologic: normal inspection, alert, responsive, speech normal Impression: Anemia due to acute blood loss Gastrointestinal bleed Anemia in chronic kidney disease (CKD) Asthma End Stage Renal Disease on HD Hypertension CAD, Hypertensive Heart Disease Type 2 Diabetes Hypothyroidism GERD Gastritis Colonic Polyps B12 deficiency Anemia Plan HD per Renal Transfuse PRN O2 PRN HHN PRN Protonix [employer] medications ISS PPX CXR Labs Test 06/04/19 12:30 White Blood Count 3.0 K/UL (4.8-10.8) Red Blood Count 2.88 M/UL (4.20-5.40) Hemoglobin 8.8 G/DL (12.0-16.0) Hematocrit 26.5 % (37.0-47.0) Mean Corpuscular Volume 92 FL (80-99) Mean Corpuscular Hemoglobin 30.7 PG (27.0-31.0) Mean Corpuscular Hemoglobin Concent 33.3 G/DL (32.0-36.0) Red Cell Distribution Width 13.2 % (11.6-14.8) Platelet Count 225 K/UL (150-450) Mean Platelet Volume 5.1 FL (6.5-10.1) Neutrophils (%) (Auto) % (45.0-75.0) Lymphocytes (%) (Auto) % (20.0-45.0) Monocytes (%) (Auto) % (1.0-10.0) Eosinophils (%) (Auto) % (0.0-3.0) Basophils (%) (Auto) % (0.0-2.0) Differential Total Cells Counted 100 Neutrophils % (Manual) 61 % (45-75) Lymphocytes % (Manual) 26 % (20-45) Monocytes % (Manual) 11 % (1-10) Eosinophils % (Manual) 2 % (0-3) Basophils % (Manual) 0 % (0-2) Band Neutrophils 0 % (0-8) Platelet Estimate Adequate Platelet Morphology Normal Hypochromasia 1+ Prothrombin Time 12.0 SEC (9.30-11.50) Prothromb Time International Ratio 1.1 (0.9-1.1) Activated Partial Thromboplast Time 30 SEC (23-33) Sodium Level 139 MMOL/L (136-145) Potassium Level 3.9 MMOL/L (3.5-5.1) Chloride Level 95 MMOL/L (98-107) Carbon Dioxide Level 39 MMOL/L (21-32) Anion Gap 5 mmol/L (5-15) Blood Urea Nitrogen 45 mg/dL (7-18) Creatinine 4.8 MG/DL (0.55-1.30) Estimat Glomerular Filtration Rate 9.0 mL/min (>60) Glucose Level 219 MG/DL (74-106) Calcium Level 7.5 MG/DL (8.5-10.1) Total Bilirubin 0.5 MG/DL (0.2-1.0) Aspartate Amino Transf (AST/SGOT) 14 U/L (15-37) Alanine Aminotransferase (ALT/SGPT) 9 U/L (12-78) Alkaline Phosphatase 82 U/L (46-116) Troponin I 0.044 ng/mL (0.000-0.056) Total Protein 7.2 G/DL (6.4-8.2) Albumin 3.6 G/DL (3.4-5.0) Globulin 3.6 g/dL Albumin/Globulin Ratio 1.0 (1.0-2.7) Lipase 110 U/L (73-393) EKG: Rate: normal Rhythm: NSR ST Segments: no acute changes CXR: Recent admission, Cardiomegaly, possible congestion Subjective ROS Limited/Unobtainable: No Allergies: Coded Allergies: No Known Allergies (Unverified , 05/12/17) Objective Last 24 Hour Vital Signs Date Time Temp Pulse Resp B/P (MAP) Pulse Ox O2 Delivery O2 Flow Rate FiO2 06/07/19 20:00 98.1 81 19 138/69 (92) 98 06/07/19 19:51 82 18 100 Nasal Cannula 2.0 28 80 18 98 06/07/19 16:22 81 06/07/19 16:12 99.1 86 18 142/65 (90) 06/07/19 15:24 82 18 99 Nasal Cannula 2.0 28 82 18 97 06/07/19 13:58 92 165/83 06/07/19 13:58 165/83 06/07/19 12:18 125 165/83 06/07/19 12:11 125 22 98 06/07/19 12:00 98.0 124 22 165/83 (110) 99 06/07/19 11:49 121 06/07/19 11:38 165/82 06/07/19 08:46 Nasal Cannula 2.0 06/07/19 08:00 96.8 85 18 162/68 (99) 98 06/07/19 07:45 85 06/07/19 07:30 82 18 100 Nasal Cannula 3.0 32 84 18 97 06/07/19 07:30 84 18 97 Nasal Cannula 2.0 28 06/07/19 05:30 149/70 06/07/19 04:00 97.0 86 21 149/70 (96) 99 06/07/19 04:00 70 06/07/19 00:00 81 06/06/19 23:44 184/71 06/06/19 23:42 97.9 83 20 184/71 (108) 98 06/06/19 22:32 80 18 100 Nasal Cannula 3.0 32 78 18 99 06/06/19 21:08 191/71 06/06/19 21:00 Nasal Cannula 2.0 Intake and Output 06/06/19 06/07/19 19:00 07:00 Intake Total 400 ml Balance 400 ml IV Total 400 ml # Voids 4 2 # Bowel Movements 1 1 Laboratory Tests 06/07/19 06:45: White Blood Count 3.3L, Red Blood Count 2.63L, Hemoglobin 8.2L, Hematocrit 24.4L , Mean Corpuscular Volume 93, Mean Corpuscular Hemoglobin 31.1H, Mean Corpuscular Hemoglobin Concent 33.5, Red Cell Distribution Width 13.3, Platelet Count 191, Mean Platelet Volume 4.8L, Neutrophils (%) (Auto) , Lymphocytes (%) ( Auto) , Monocytes (%) (Auto) , Eosinophils (%) (Auto) , Basophils (%) (Auto) , Differential Total Cells Counted 100, Neutrophils % (Manual) 78H, Lymphocytes % (Manual) 16L, Monocytes % (Manual) 3, Eosinophils % (Manual) 1, Basophils % ( Manual) 2, Band Neutrophils 0, Platelet Estimate Adequate, Platelet Morphology Normal, Sodium Level 139, Potassium Level 3.8, Chloride Level 103, Carbon Dioxide Level 31, Anion Gap 5, Blood Urea Nitrogen 25H, Creatinine 4.1H, Estimat Glomerular Filtration Rate 10.8, Glucose Level 169H, Calcium Level 7.6L , Phosphorus Level 4.0, Magnesium Level 1.7L Current Medications Medications (Trade) Dose Ordered Sig/Toya Route PRN Reason Start Time Stop Time Status Last Admin Dose Admin Acetaminophen (Tylenol) 650 mg Q4H PRN ORAL Mild Pain/Temp > 100.5 06/06/19 10:30 07/06/19 10:29 06/06/19 10:40 Albuterol/ Ipratropium (Albuterol/ Ipratropium) 3 ml Q4HRT HHN 06/06/19 15:00 06/11/19 14:59 06/07/19 19:51 Carvedilol (Coreg) 6.25 mg EVERY 12 HOURS ORAL 06/07/19 21:00 07/07/19 20:59 Dextrose (Dextrose 50%) 25 ml Q30M PRN IV Hypoglycemia 06/07/19 06:45 07/07/19 06:44 Dextrose (Dextrose 50%) 50 ml Q30M PRN IV Hypoglycemia 06/07/19 06:45 07/07/19 06:44 Docusate Sodium (Colace) 100 mg THREE TIMES A DAY ORAL 06/05/19 13:00 07/05/19 12:59 Epoetin Panchito (Epoetin Panchito(ESRD on dialysis)) 3,000 unit THU-THU-THU SUBQ 06/06/19 21:00 07/06/19 20:59 06/06/19 21:07 Gabapentin (Neurontin) 200 mg THREE TIMES A DAY ORAL 06/04/19 18:00 07/04/19 17:59 06/07/19 17:53 Hydralazine HCl (Apresoline) 10 mg Q4H PRN IV bp over 165 syst 06/04/19 15:45 07/04/19 15:44 06/07/19 11:38 Hydralazine HCl (Apresoline) 50 mg Q8HR ORAL 06/04/19 22:00 07/04/19 21:59 06/07/19 13:58 Insulin Aspart (NovoLOG) BEFORE MEALS AND HS SUBQ 06/05/19 21:00 07/05/19 20:59 06/07/19 16:54 Insulin Detemir (Levemir) 8 units DAILY SUBQ 06/07/19 09:00 07/07/19 08:59 Levothyroxine Sodium (Synthroid) 50 mcg DAILY IV 06/05/19 09:00 07/05/19 08:59 06/07/19 10:08 Pantoprazole (Protonix) 40 mg EVERY 12 HOURS IVP 06/04/19 21:00 07/04/19 20:59 06/07/19 10:08 Sevelamer Carbonate (Renvela) 800 mg THREE TIMES A DAY ORAL 06/05/19 13:00 07/05/19 12:59 06/07/19 17:53 Brandon Herbert MD Jun 07, 2019 20:48
[2019-06-07] MEDS: Carvedilol 6.25mg Tab ORAL SCH (20:58)
--- NOTE | 2019-06-07 21:09 | General Progress Note ---
Assessment/Plan Problem List: (1) Renal failure ICD Codes: N19 - Unspecified kidney failure SNOMED: 06645061 (2) Black tarry stools ICD Codes: K92.1 - Melena SNOMED: 083794277 (3) ESRD (end stage renal disease) ICD Codes: N18.6 - End stage renal disease SNOMED: 44792738 (4) Hypertension ICD Codes: I10 - Essential (primary) hypertension SNOMED: 75696160 (5) Anemia in chronic kidney disease (CKD) ICD Codes: N18.9 - Chronic kidney disease, unspecified; D63.1 - Anemia in chronic kidney disease SNOMED: 576308296 (6) Diabetic nephropathy with proteinuria ICD Codes: E11.21 - Type 2 diabetes mellitus with diabetic nephropathy SNOMED: 39708793, 325898679 Status: progressing, not improved Assessment/Plan: asthma exacerbation improving not hypoxic check h/h endoscopy per dr roy gi bleed esrd on hd r/o fluid overload HD PER dr stearns Subjective Respiratory: Reports: shortness of breath Allergies: Coded Allergies: No Known Allergies (Unverified , 05/12/17) Objective Last 24 Hour Vital Signs Date Time Temp Pulse Resp B/P (MAP) Pulse Ox O2 Delivery O2 Flow Rate FiO2 06/07/19 20:58 81 138/69 06/07/19 20:58 138/69 06/07/19 20:00 98.1 81 19 138/69 (92) 98 06/07/19 19:51 82 18 100 Nasal Cannula 2.0 28 80 18 98 06/07/19 16:22 81 06/07/19 16:12 99.1 86 18 142/65 (90) 06/07/19 15:24 82 18 99 Nasal Cannula 2.0 28 82 18 97 06/07/19 13:58 92 165/83 06/07/19 13:58 165/83 06/07/19 12:18 125 165/83 06/07/19 12:11 125 22 98 06/07/19 12:00 98.0 124 22 165/83 (110) 99 06/07/19 11:49 121 06/07/19 11:38 165/82 06/07/19 08:46 Nasal Cannula 2.0 06/07/19 08:00 96.8 85 18 162/68 (99) 98 06/07/19 07:45 85 06/07/19 07:30 82 18 100 Nasal Cannula 3.0 32 84 18 97 06/07/19 07:30 84 18 97 Nasal Cannula 2.0 28 06/07/19 05:30 149/70 06/07/19 04:00 97.0 86 21 149/70 (96) 99 06/07/19 04:00 70 06/07/19 00:00 81 06/06/19 23:44 184/71 06/06/19 23:42 97.9 83 20 184/71 (108) 98 06/06/19 22:32 80 18 100 Nasal Cannula 3.0 32 78 18 99 06/06/19 21:08 191/71 Intake and Output 06/06/19 06/07/19 19:00 07:00 Intake Total 400 ml Balance 400 ml IV Total 400 ml # Voids 4 2 # Bowel Movements 1 1 Laboratory Tests 06/07/19 06:45: White Blood Count 3.3L, Red Blood Count 2.63L, Hemoglobin 8.2L, Hematocrit 24.4L , Mean Corpuscular Volume 93, Mean Corpuscular Hemoglobin 31.1H, Mean Corpuscular Hemoglobin Concent 33.5, Red Cell Distribution Width 13.3, Platelet Count 191, Mean Platelet Volume 4.8L, Neutrophils (%) (Auto) , Lymphocytes (%) ( Auto) , Monocytes (%) (Auto) , Eosinophils (%) (Auto) , Basophils (%) (Auto) , Differential Total Cells Counted 100, Neutrophils % (Manual) 78H, Lymphocytes % (Manual) 16L, Monocytes % (Manual) 3, Eosinophils % (Manual) 1, Basophils % ( Manual) 2, Band Neutrophils 0, Platelet Estimate Adequate, Platelet Morphology Normal, Sodium Level 139, Potassium Level 3.8, Chloride Level 103, Carbon Dioxide Level 31, Anion Gap 5, Blood Urea Nitrogen 25H, Creatinine 4.1H, Estimat Glomerular Filtration Rate 10.8, Glucose Level 169H, Calcium Level 7.6L , Phosphorus Level 4.0, Magnesium Level 1.7L Height (Feet): 5 Height (Inches): 3.00 Weight (Pounds): 167 Cardiovascular: regular rhythm Respiratory/Chest: lungs clear Abdomen: soft Makenna Daniel MD Jun 07, 2019 21:09
[2019-06-08] VITALS: BP 144/44
[2019-06-08] MEDS: Albuterol/Ipratropium 3ml neb HHN SCH ×5 (00:03→14:53)
[2019-06-08 04:00] VITALS: BP 152/64
[2019-06-08] MEDS: HydrALAZINE 50mg tab ORAL SCH ×2 (05:16→13:07)
[2019-06-08] MEDS: NovoLOG Insulin Flexpen SUBQ SCH ×3 (05:21→17:16)
--- NOTE | 2019-06-08 07:08 | General Progress Note ---
Assessment/Plan Problem List: (1) ESRD (end stage renal disease) ICD Codes: N18.6 - End stage renal disease SNOMED: 17459770 (2) Diabetic nephropathy with proteinuria ICD Codes: E11.21 - Type 2 diabetes mellitus with diabetic nephropathy SNOMED: 17088362, 211653894 (3) Hypertensive kidney disease ICD Codes: I12.9 - Hypertensive chronic kidney disease with stage 1 through stage 4 chronic kidney disease, or unspecified chronic kidney disease SNOMED: 24181001 Status: progressing, not improved Assessment/Plan: Levemir on hold for NPO status continue Novolog insulin coverage Subjective Allergies: Coded Allergies: No Known Allergies (Unverified , 05/12/17) All Systems: reviewed and negative except above Subjective events noted Item Value Date Time Bedside Blood Glucose 142 mg/dl H 06/08/19 0521 Bedside Blood Glucose 150 mg/dl H 06/07/19 2101 Bedside Blood Glucose 185 mg/dl H 06/07/19 1654 Bedside Blood Glucose 110 mg/dl 06/07/19 1130 Bedside Blood Glucose 205 mg/dl H 06/07/19 1003 Bedside Blood Glucose 205 mg/dl H 06/07/19 0531 Objective Last 24 Hour Vital Signs Date Time Temp Pulse Resp B/P (MAP) Pulse Ox O2 Delivery O2 Flow Rate FiO2 06/08/19 05:16 152/64 06/08/19 04:00 97.1 73 19 152/64 (93) 96 06/08/19 04:00 77 06/08/19 03:15 80 18 100 Nasal Cannula 2.0 28 78 18 98 06/08/19 00:04 88 18 99 Nasal Cannula 2.0 28 85 18 95 06/08/19 00:00 81 06/08/19 00:00 98.2 80 19 144/44 (77) 98 06/07/19 21:00 Nasal Cannula 2.0 06/07/19 20:58 81 138/69 06/07/19 20:58 138/69 06/07/19 20:00 98.1 81 19 138/69 (92) 98 06/07/19 20:00 89 06/07/19 19:51 82 18 100 Nasal Cannula 2.0 28 80 18 98 06/07/19 16:22 81 06/07/19 16:12 99.1 86 18 142/65 (90) 06/07/19 15:24 82 18 99 Nasal Cannula 2.0 28 82 18 97 06/07/19 13:58 92 165/83 06/07/19 13:58 165/83 06/07/19 12:18 125 165/83 06/07/19 12:11 125 22 98 06/07/19 12:00 98.0 124 22 165/83 (110) 99 06/07/19 11:49 121 06/07/19 11:38 165/82 06/07/19 08:46 Nasal Cannula 2.0 06/07/19 08:00 96.8 85 18 162/68 (99) 98 06/07/19 07:45 85 06/07/19 07:30 82 18 100 Nasal Cannula 3.0 32 84 18 97 06/07/19 07:30 84 18 97 Nasal Cannula 2.0 28 Intake and Output 06/07/19 06/08/19 18:59 06:59 Intake Total 720 ml Output Total 20 ml Balance 700 ml Intake Oral 720 ml Output Urine Total 20 ml # Voids 4 # Bowel Movements 1 Height (Feet): 5 Height (Inches): 3.00 Weight (Pounds): 167 General Appearance: no apparent distress Neck: normal alignment Cardiovascular: normal rate Respiratory/Chest: lungs clear Abdomen: normal bowel sounds Objective Current Medications Medications (Trade) Dose Ordered Sig/Toya Route PRN Reason Start Time Stop Time Status Last Admin Dose Admin Acetaminophen (Tylenol) 650 mg Q4H PRN ORAL Mild Pain/Temp > 100.5 06/06/19 10:30 07/06/19 10:29 06/07/19 21:21 Albuterol/ Ipratropium (Albuterol/ Ipratropium) 3 ml Q4HRT HHN 06/06/19 15:00 06/11/19 14:59 06/08/19 03:14 Carvedilol (Coreg) 6.25 mg EVERY 12 HOURS ORAL 06/07/19 21:00 07/07/19 20:59 06/07/19 20:58 Dextrose (Dextrose 50%) 25 ml Q30M PRN IV Hypoglycemia 06/07/19 06:45 07/07/19 06:44 Dextrose (Dextrose 50%) 50 ml Q30M PRN IV Hypoglycemia 06/07/19 06:45 07/07/19 06:44 Docusate Sodium (Colace) 100 mg THREE TIMES A DAY ORAL 06/05/19 13:00 07/05/19 12:59 Epoetin Panhcito (Epoetin Panchito(ESRD on dialysis)) 3,000 unit THU-THU-THU SUBQ 06/06/19 21:00 07/06/19 20:59 06/06/19 21:07 Gabapentin (Neurontin) 200 mg THREE TIMES A DAY ORAL 06/04/19 18:00 07/04/19 17:59 06/07/19 17:53 Hydralazine HCl (Apresoline) 10 mg Q4H PRN IV bp over 165 syst 06/04/19 15:45 07/04/19 15:44 06/07/19 11:38 Hydralazine HCl (Apresoline) 50 mg Q8HR ORAL 06/04/19 22:00 07/04/19 21:59 06/08/19 05:16 Insulin Aspart (NovoLOG) BEFORE MEALS AND HS SUBQ 06/05/19 21:00 07/05/19 20:59 06/08/19 05:21 Insulin Detemir (Levemir) 8 units DAILY SUBQ 06/07/19 09:00 07/07/19 08:59 Levothyroxine Sodium (Synthroid) 50 mcg DAILY IV 06/05/19 09:00 07/05/19 08:59 06/07/19 10:08 Pantoprazole (Protonix) 40 mg EVERY 12 HOURS IVP 06/04/19 21:00 07/04/19 20:59 06/07/19 21:14 Sevelamer Carbonate (Renvela) 800 mg THREE TIMES A DAY ORAL 06/05/19 13:00 07/05/19 12:59 06/07/19 17:53 Lavell Archer MD Jun 08, 2019 07:08
--- NOTE | 2019-06-08 07:19 | NUR ---
HAND-OFF: Report given to SIDNEY Otto. Pt stable.
--- NOTE | 2019-06-08 07:20 | NUR ---
NURSE NOTES: Received report from Danica/RN, Patient is awake, Lying semi-welch's, resting comfortably. Able to make needs known. Denies pain at this time. IV site patent, no bleeding or infiltration noted. Encouraged to use call light when needed. Bed in lowest position and locked, Bed alarm engaged, Side-rails up x3. Call light within reach. Will continue plan of care.
[2019-06-08 07:39] LABS: HEMATOCRIT 22.7 % (37.0-47.0); HEMOGLOBIN 7.5 G/DL (12.0-16.0); MEAN CORPUSCULAR VOLUME 93 FL (80-99); PLATELET COUNT 165 K/UL (150-450); RED BLOOD COUNT 2.42 M/UL (4.20-5.40); RED CELL DISTRIBUTION WIDTH 13.4 % (11.6-14.8); WHITE BLOOD COUNT 3.1 K/UL (4.8-10.8)
[2019-06-08 08:00] VITALS: BP 157/60
[2019-06-08 08:00] LABS: ALANINE AMINOTRANSFERASE 7 U/L (12-78); ALBUMIN 3.1 G/DL (3.4-5.0); ALBUMIN/GLOBULIN RATIO 0.9 (1.0-2.7); ALKALINE PHOSPHATASE 67 U/L (46-116); ANION GAP 8 mmol/L (5-15); ASPARTATE AMINO TRANSFERASE 12 U/L (15-37); BILIRUBIN,TOTAL 0.4 MG/DL (0.2-1.0); BLOOD UREA NITROGEN 39 mg/dL (7-18); CALCIUM 7.4 MG/DL (8.5-10.1); CARBON DIOXIDE 27 MMOL/L (21-32); CHLORIDE 103 MMOL/L (98-107); CREATININE 5.1 MG/DL (0.55-1.30); PHOSPHORUS 4.2 MG/DL (2.5-4.9); POTASSIUM 4.4 MMOL/L (3.5-5.1); SODIUM 138 MMOL/L (136-145)
[2019-06-08] MEDS: Carvedilol 6.25mg Tab ORAL SCH (09:00)
[2019-06-08] MEDS: Pantoprazole Inj IVP SCH (09:08)
[2019-06-08] MEDS: Docusate 100mg cap ORAL SCH ×2 (09:08→13:00)
[2019-06-08] MEDS: Levemir Flexpen SUBQ SCH (09:16)
--- NOTE | 2019-06-08 10:47 | NUR ---
CASE MANAGEMENT: REVIEW 06/08/19 SI:ESRD ON HD; DARK STOOLS PMH: ESRD ON HD/ CHF. DM. HTN. 97.1 73 19 152/64 96% NC 2L CA+ 7.4; MG 1.7; WBC 3.1; RBC 2.42; H/H 7.5/22.7; BUN 39; CREAT 5.1; BNP>24555; C-REC PROT 2.7; AST 12; ALT 7 IS: IV HYDRALAZINE Q4/PRN HYDRALAZINE PO Q8HR IV PROTONIX Q12HR EPOETIN SQ QOD COREG PO Q12HR NEURONTIN PO TID ALBUTEROL HHN Q4HR NOVOLOG SQ AC&HS LEVEMIR SQ QD RENVELA PO TID COLACE PO TID IV SYNTHROID QD EPOETIN SQ QOD : 2E TELE UNIT DCP: PATIENT TO BE DISCHARGED TO HOME ONCE MEDICALLY CLEARED PLAN: HD TODAY TRANSFUSE PRN EGD/COLONOSCOPY - HOLD DUE TO PT SOB DC PLANNING [facility] [place]= COMPLETE
--- NOTE | 2019-06-08 11:12 | Hematology/Onc Progress Note ---
Assessment/Plan Assessment/Plan Assessment/Plan: 1. Anemia due to underlying chronic disease. Have reviewed prior workup, ferritin is >1000, though percent saturation Tsat <30, but not recommended for further iron --> Continue to closely monitor. --> Transfuse if hgb <7 --> ferritin is >600 --> has been given epogen, has been started 3x a week per renal --> as per renal --> monitor for gi bleed, gi consulted(for COLO/EGD) --> hgb trend 7.4-->8.9->7.5 --> prbc for 06/08 2. Leukopenia likely reactive process v infection v from meds --> hepatitis and hiv prior negative --> neutropenic precautions if ANC <1500 --> trending stable --> imaging reviewed and no hsm / cirrhosis noted --> wbc 2.7-->4-->3.1 --> neupogen if wbc lower or any signs of infection --> ANC goal >1500 3. End-stage renal disease, on hemodialysis three times a week. --> renal consulted --> continue hd 4. History of coronary artery disease. --> cards reviewed --> diuresis prn 5. History of anemia due to low B12, low iron --> b12 is currently within normal limits --> reobtain q6mo 6. Dizziness and unsteady gait 7. DVt ppsx with SCDs Greatly appreciate consultation and Dw RN am. Subjective HEENT: Denies: no symptoms, eye pain, blurred vision, tearing, double vision, ear pain, ear discharge, nose pain, nose congestion, throat pain, throat swelling, mouth pain, mouth swelling, other Cardiovascular: Denies: no symptoms, chest pain, edema, irregular heart rate, lightheadedness, palpitations, syncope, other Respiratory: Denies: no symptoms, cough, shortness of breath, SOB with excertion, SOB at rest, sputum, wheezing, other Gastrointestinal/Abdominal: Denies: no symptoms, abdomen distended, abdominal pain, black stools, tarry stools, blood in stool, constipated, diarrhea, difficulty swallowing, nausea, poor appetite, poor fluid intake, rectal bleeding , vomiting, other Genitourinary: Denies: no symptoms, burning, discharge, frequency, flank pain, hematuria, incontinence, pain, urgency, other Neurologic/Psychiatric: Denies: no symptoms, anxiety, depressed, emotional problems, headache, numbness, paresthesia, pre-existing deficit, seizure, tingling, tremors, weakness, other Endocrine: Denies: no symptoms, excessive sweating, flushing, intolerance to cold, intolerance to heat, increased hunger, increased thirst, increased urine, unexplained weight gain, unexplained weight loss, other Allergies: Coded Allergies: No Known Allergies (Unverified , 05/12/17) Subjective 06/06: no events, egdcolo cancelled bc sob, cards seen eval reviewed, trop neg 06/07: no bleeding or chills, cbc is pending, hd was done yesterday 06/08: comfortable, to get prbc today, no f/c Objective Objective Current Medications Medications (Trade) Dose Ordered Sig/Toya Route PRN Reason Start Time Stop Time Status Last Admin Dose Admin Acetaminophen (Tylenol) 650 mg Q4H PRN ORAL Mild Pain/Temp > 100.5 06/06/19 10:30 07/06/19 10:29 06/07/19 21:21 Albuterol/ Ipratropium (Albuterol/ Ipratropium) 3 ml Q4HRT HHN 06/06/19 15:00 06/11/19 14:59 06/08/19 07:19 Carvedilol (Coreg) 6.25 mg EVERY 12 HOURS ORAL 06/07/19 21:00 07/07/19 20:59 06/07/19 20:58 Dextrose (Dextrose 50%) 25 ml Q30M PRN IV Hypoglycemia 06/07/19 06:45 07/07/19 06:44 Dextrose (Dextrose 50%) 50 ml Q30M PRN IV Hypoglycemia 06/07/19 06:45 07/07/19 06:44 Docusate Sodium (Colace) 100 mg THREE TIMES A DAY ORAL 06/05/19 13:00 07/05/19 12:59 06/08/19 09:08 Epoetin Panchito (Epoetin Panchito(ESRD on dialysis)) 3,000 unit THU-WED-THU SUBQ 06/06/19 21:00 07/06/19 20:59 06/06/19 21:07 Gabapentin (Neurontin) 200 mg THREE TIMES A DAY ORAL 06/04/19 18:00 07/04/19 17:59 06/08/19 09:09 Hydralazine HCl (Apresoline) 10 mg Q4H PRN IV bp over 165 syst 06/04/19 15:45 07/04/19 15:44 06/07/19 11:38 Hydralazine HCl (Apresoline) 50 mg Q8HR ORAL 06/04/19 22:00 07/04/19 21:59 06/08/19 05:16 Insulin Aspart (NovoLOG) BEFORE MEALS AND HS SUBQ 06/05/19 21:00 07/05/19 20:59 06/08/19 05:21 Insulin Detemir (Levemir) 8 units DAILY SUBQ 06/07/19 09:00 07/07/19 08:59 06/08/19 09:16 Levothyroxine Sodium (Synthroid) 50 mcg DAILY IV 06/05/19 09:00 07/05/19 08:59 06/08/19 09:39 Pantoprazole (Protonix) 40 mg EVERY 12 HOURS IVP 06/04/19 21:00 07/04/19 20:59 06/08/19 09:08 Sevelamer Carbonate (Renvela) 800 mg THREE TIMES A DAY ORAL 06/05/19 13:00 07/05/19 12:59 06/08/19 09:08 Last 24 Hour Vital Signs Date Time Temp Pulse Resp B/P (MAP) Pulse Ox O2 Delivery O2 Flow Rate FiO2 06/08/19 09:00 72 157/60 06/08/19 07:19 85 18 98 Nasal Cannula 2.0 28 82 18 92 06/08/19 05:16 152/64 06/08/19 04:00 97.1 73 19 152/64 (93) 96 06/08/19 04:00 77 06/08/19 03:15 80 18 100 Nasal Cannula 2.0 28 78 18 98 06/08/19 00:04 88 18 99 Nasal Cannula 2.0 28 85 18 95 06/08/19 00:00 81 06/08/19 00:00 98.2 80 19 144/44 (77) 98 06/07/19 21:00 Nasal Cannula 2.0 06/07/19 20:58 81 138/69 06/07/19 20:58 138/69 06/07/19 20:00 98.1 81 19 138/69 (92) 98 06/07/19 20:00 89 06/07/19 19:51 82 18 100 Nasal Cannula 2.0 28 80 18 98 06/07/19 16:22 81 06/07/19 16:12 99.1 86 18 142/65 (90) 06/07/19 15:24 82 18 99 Nasal Cannula 2.0 28 82 18 97 06/07/19 13:58 92 165/83 06/07/19 13:58 165/83 06/07/19 12:18 125 165/83 06/07/19 12:11 125 22 98 06/07/19 12:00 98.0 124 22 165/83 (110) 99 06/07/19 11:49 121 06/07/19 11:38 165/82 06/07/19 08:46 Nasal Cannula 2.0 06/07/19 08:00 96.8 85 18 162/68 (99) 98 06/07/19 07:45 85 06/07/19 07:30 82 18 100 Nasal Cannula 3.0 32 84 18 97 06/07/19 07:30 84 18 97 Nasal Cannula 2.0 28 06/07/19 05:30 149/70 06/07/19 04:00 97.0 86 21 149/70 (96) 99 06/07/19 04:00 70 06/07/19 00:00 81 06/06/19 23:44 184/71 06/06/19 23:42 97.9 83 20 184/71 (108) 98 06/06/19 22:32 80 18 100 Nasal Cannula 3.0 32 78 18 99 06/06/19 21:08 191/71 06/06/19 21:00 Nasal Cannula 2.0 06/06/19 20:00 81 06/06/19 20:00 98.1 78 20 191/71 (111) 98 06/06/19 19:36 81 18 97 Nasal Cannula 2.0 28 06/06/19 19:34 84 18 100 Nasal Cannula 3.0 32 81 18 97 06/06/19 16:00 97.9 77 18 165/68 (100) 98 06/06/19 15:11 85 06/06/19 14:17 88 18 99 Nasal Cannula 3.0 32 87 16 98 06/06/19 13:56 177/78 06/06/19 12:00 98.2 84 19 172/78 (109) 93 06/06/19 11:46 83 Intake and Output 06/07/19 06/08/19 19:00 07:00 Intake Total 720 ml Output Total 20 ml Balance 700 ml Intake Oral 720 ml Output Urine Total 20 ml # Voids 4 # Bowel Movements 1 Labs Test 06/06/19 05:30 06/07/19 06:45 06/08/19 05:48 White Blood Count 4.1 K/UL (4.8-10.8) 3.3 K/UL (4.8-10.8) 3.1 K/UL (4.8-10.8) Red Blood Count 2.92 M/UL (4.20-5.40) 2.63 M/UL (4.20-5.40) 2.42 M/UL (4.20-5.40) Hemoglobin 8.9 G/DL (12.0-16.0) 8.2 G/DL (12.0-16.0) 7.5 G/DL (12.0-16.0) Hematocrit 26.6 % (37.0-47.0) 24.4 % (37.0-47.0) 22.7 % (37.0-47.0) Mean Corpuscular Volume 91 FL (80-99) 93 FL (80-99) 93 FL (80-99) Mean Corpuscular Hemoglobin 30.5 PG (27.0-31.0) 31.1 PG (27.0-31.0) 31.1 PG (27.0-31.0) Mean Corpuscular Hemoglobin Concent 33.4 G/DL (32.0-36.0) 33.5 G/DL (32.0-36.0) 33.3 G/DL (32.0-36.0) Red Cell Distribution Width 13.3 % (11.6-14.8) 13.3 % (11.6-14.8) 13.4 % (11.6-14.8) Platelet Count 206 K/UL (150-450) 191 K/UL (150-450) 165 K/UL (150-450) Mean Platelet Volume 5.6 FL (6.5-10.1) 4.8 FL (6.5-10.1) 6.2 FL (6.5-10.1) Neutrophils (%) (Auto) 75.8 % (45.0-75.0) % (45.0-75.0) % (45.0-75.0) Lymphocytes (%) (Auto) 14.1 % (20.0-45.0) % (20.0-45.0) % (20.0-45.0) Monocytes (%) (Auto) 5.5 % (1.0-10.0) % (1.0-10.0) % (1.0-10.0) Eosinophils (%) (Auto) 2.8 % (0.0-3.0) % (0.0-3.0) % (0.0-3.0) Basophils (%) (Auto) 1.8 % (0.0-2.0) % (0.0-2.0) % (0.0-2.0) Sodium Level 140 MMOL/L (136-145) 139 MMOL/L (136-145) 138 MMOL/L (136-145) Potassium Level 4.2 MMOL/L (3.5-5.1) 3.8 MMOL/L (3.5-5.1) 4.4 MMOL/L (3.5-5.1) Chloride Level 104 MMOL/L (98-107) 103 MMOL/L (98-107) 103 MMOL/L (98-107) Carbon Dioxide Level 28 MMOL/L (21-32) 31 MMOL/L (21-32) 27 MMOL/L (21-32) Anion Gap 8 mmol/L (5-15) 5 mmol/L (5-15) 8 mmol/L (5-15) Blood Urea Nitrogen 49 mg/dL (7-18) 25 mg/dL (7-18) 39 mg/dL (7-18) Creatinine 5.8 MG/DL (0.55-1.30) 4.1 MG/DL (0.55-1.30) 5.1 MG/DL (0.55-1.30) Estimat Glomerular Filtration Rate 7.2 mL/min (>60) 10.8 mL/min (>60) 8.4 mL/min (>60) Glucose Level 156 MG/DL (74-106) 169 MG/DL (74-106) 148 MG/DL (74-106) Calcium Level 7.6 MG/DL (8.5-10.1) 7.6 MG/DL (8.5-10.1) 7.4 MG/DL (8.5-10.1) Phosphorus Level 4.4 MG/DL (2.5-4.9) 4.0 MG/DL (2.5-4.9) 4.2 MG/DL (2.5-4.9) Magnesium Level 1.9 MG/DL (1.8-2.4) 1.7 MG/DL (1.8-2.4) 2.0 MG/DL (1.8-2.4) Total Bilirubin 0.5 MG/DL (0.2-1.0) 0.4 MG/DL (0.2-1.0) Aspartate Amino Transf (AST/SGOT) 13 U/L (15-37) 12 U/L (15-37) Alanine Aminotransferase (ALT/SGPT) 7 U/L (12-78) 7 U/L (12-78) Alkaline Phosphatase 70 U/L (46-116) 67 U/L (46-116) Troponin I 0.009 ng/mL (0.000-0.056) Total Protein 6.8 G/DL (6.4-8.2) 6.4 G/DL (6.4-8.2) Albumin 3.4 G/DL (3.4-5.0) 3.1 G/DL (3.4-5.0) Globulin 3.4 g/dL 3.3 g/dL Albumin/Globulin Ratio 1.0 (1.0-2.7) 0.9 (1.0-2.7) Hepatitis B Surface Antigen Negative (NEGATIVE) Differential Total Cells Counted 100 100 Neutrophils % (Manual) 78 % (45-75) 60 % (45-75) Lymphocytes % (Manual) 16 % (20-45) 28 % (20-45) Monocytes % (Manual) 3 % (1-10) 7 % (1-10) Eosinophils % (Manual) 1 % (0-3) 5 % (0-3) Basophils % (Manual) 2 % (0-2) 0 % (0-2) Band Neutrophils 0 % (0-8) 0 % (0-8) Platelet Estimate Adequate Adequate Platelet Morphology Normal Normal C-Reactive Protein, Quantitative 2.7 mg/dL (0.00-0.90) Pro-B-Type Natriuretic Peptide > 68997 pg/mL (0-125) Height (Feet): 5 Height (Inches): 3.00 Weight (Pounds): 167 Carl Daniels MD Jun 08, 2019 11:12
--- NOTE | 2019-06-08 11:54 | Nephrology Progress Note ---
Assessment/Plan Problem List: (1) ESRD (end stage renal disease) (2) Hypertension (3) Anemia in chronic kidney disease (CKD) (4) Diabetic nephropathy with proteinuria Assessment GI bleed present with melena, worsening Anemia ESRD h/o Pulm Edema DM HTN Anemia B12 and Iron def CAD Plan HD and UF 06/06 next 06/08- Per GI Adjust BP meds per orders Subjective ROS Limited/Unobtainable: No Constitutional: Reports: malaise, other - seen on HD Objective Objective Last 24 Hour Vital Signs Date Time Temp Pulse Resp B/P (MAP) Pulse Ox O2 Delivery O2 Flow Rate FiO2 06/08/19 11:22 85 18 96 Nasal Cannula 2.0 28 06/08/19 09:00 72 157/60 06/08/19 09:00 Nasal Cannula 2.0 06/08/19 08:00 81 06/08/19 08:00 98.6 72 18 157/60 (92) 97 06/08/19 07:19 85 18 98 Nasal Cannula 2.0 28 82 18 92 06/08/19 05:16 152/64 06/08/19 04:00 97.1 73 19 152/64 (93) 96 06/08/19 04:00 77 06/08/19 03:15 80 18 100 Nasal Cannula 2.0 28 78 18 98 06/08/19 00:04 88 18 99 Nasal Cannula 2.0 28 85 18 95 06/08/19 00:00 81 06/08/19 00:00 98.2 80 19 144/44 (77) 98 06/07/19 21:00 Nasal Cannula 2.0 06/07/19 20:58 81 138/69 06/07/19 20:58 138/69 06/07/19 20:00 98.1 81 19 138/69 (92) 98 06/07/19 20:00 89 06/07/19 19:51 82 18 100 Nasal Cannula 2.0 28 80 18 98 06/07/19 16:22 81 06/07/19 16:12 99.1 86 18 142/65 (90) 06/07/19 15:24 82 18 99 Nasal Cannula 2.0 28 82 18 97 06/07/19 13:58 92 165/83 06/07/19 13:58 165/83 06/07/19 12:18 125 165/83 06/07/19 12:11 125 22 98 06/07/19 12:00 98.0 124 22 165/83 (110) 99 Intake and Output 06/07/19 06/08/19 19:00 07:00 Intake Total 720 ml Output Total 20 ml Balance 700 ml Intake Oral 720 ml Output Urine Total 20 ml # Voids 4 # Bowel Movements 1 Laboratory Tests 06/08/19 05:48: White Blood Count 3.1L, Red Blood Count 2.42L, Hemoglobin 7.5L, Hematocrit 22.7L , Mean Corpuscular Volume 93, Mean Corpuscular Hemoglobin 31.1H, Mean Corpuscular Hemoglobin Concent 33.3, Red Cell Distribution Width 13.4, Platelet Count 165, Mean Platelet Volume 6.2L, Neutrophils (%) (Auto) , Lymphocytes (%) ( Auto) , Monocytes (%) (Auto) , Eosinophils (%) (Auto) , Basophils (%) (Auto) , Differential Total Cells Counted 100, Neutrophils % (Manual) 60, Lymphocytes % ( Manual) 28, Monocytes % (Manual) 7, Eosinophils % (Manual) 5H, Basophils % ( Manual) 0, Band Neutrophils 0, Platelet Estimate Adequate, Platelet Morphology Normal, Sodium Level 138, Potassium Level 4.4, Chloride Level 103, Carbon Dioxide Level 27, Anion Gap 8, Blood Urea Nitrogen 39H, Creatinine 5.1H, Estimat Glomerular Filtration Rate 8.4, Glucose Level 148H, Calcium Level 7.4L, Phosphorus Level 4.2, Magnesium Level 2.0, Total Bilirubin 0.4, Aspartate Amino Transf (AST/SGOT) 12L, Alanine Aminotransferase (ALT/SGPT) 7L, Alkaline Phosphatase 67, C-Reactive Protein, Quantitative 2.7H, Pro-B-Type Natriuretic Peptide > 55841S, Total Protein 6.4, Albumin 3.1L, Globulin 3.3, Albumin/ Globulin Ratio 0.9L Height (Feet): 5 Height (Inches): 3.00 Weight (Pounds): 167 Cardiovascular: normal rate Respiratory/Chest: decreased breath sounds Abdomen: soft Francis Falk MD Jun 08, 2019 11:54
[2019-06-08 12:00] VITALS: BP 179/72
[2019-06-08 12:50] VITALS: BP 155/64
[2019-06-08 13:07] VITALS: BP 155/64
--- NOTE | 2019-06-08 13:31 | NUR ---
DISCHARGED PLANNED: DISCUSSED DISCHARGE AT BEDSIDE WITH PATIENT AND DAUGHTER VIA PHONE SPOKE TO GREGOR AT FACILITY [facility] HAS ACCEPTED PATIENT ROOM#125B SKILLED T: [phone] FOR NURSE TO NURSE REPORT HD HAS BEEN ARRANGED AND TRANSPORTATION SETUP BY GREGOR AT FACILITY [facility] [employer] COUNSELOR TIME @1630 Addendum: 06/09/19 at 0918 by ANN-MARIE LOGAN LVN PATIENT WILL CONTINUE HD WITH CURRENT HD FACILITY [facility] MWF @11AM T: [phone] GREGOR IN ADMISSION HAS ARRANGED TRANSPORTATION
--- NOTE | 2019-06-08 14:52 | NUR ---
NURSE NOTES: Report given to Lupis at [facility].
--- NOTE | 2019-06-08 16:08 | Cardiology Report ---
APPROVED REPORT EKG Measurement Heart [id number] MA 132P [id number] elevation, consider lateral injury or acute infarct Abnormal ECG
--- NOTE | 2019-06-08 16:46 | Cardiac Electrophysiology PN ---
Assessment/Plan Assessment/Plan 1. Chest pain and Shortness of breath. Already ruled out for myocardial infarction by serial cardiac enzymes. Her echocardiogram was on April 19, 2019 showed an ejection fraction of 50%, aortic stenosis, and aortic valve area of 1.5 centimeter square. 2. End-stage renal disease, on hemodialysis. Further evaluation by Dr. Falk. 3. Anemia, hemoglobin 7.3. S/P PRBC 4. Hypertension. On hydralazine 50 mg every 8 hours, HD and p.r.n. IV hydralazine. GER RN DC today Subjective Subjective Had HD and transfusion. Ruled out for SC. ECG non ischemic. EF 50% Objective Last 24 Hour Vital Signs Date Time Temp Pulse Resp B/P (MAP) Pulse Ox O2 Delivery O2 Flow Rate FiO2 06/08/19 14:53 107 18 100 Nasal Cannula 2.0 28 108 18 100 06/08/19 13:07 155/64 06/08/19 12:50 80 155/64 (94) 06/08/19 12:00 97.2 76 20 179/72 (107) 99 06/08/19 12:00 179/72 06/08/19 12:00 72 06/08/19 11:22 89 18 99 Nasal Cannula 2.0 28 85 18 96 06/08/19 09:00 72 157/60 06/08/19 09:00 Nasal Cannula 2.0 06/08/19 08:00 81 06/08/19 08:00 98.6 72 18 157/60 (92) 97 06/08/19 07:19 85 18 98 Nasal Cannula 2.0 28 82 18 92 06/08/19 05:16 152/64 06/08/19 04:00 97.1 73 19 152/64 (93) 96 06/08/19 04:00 77 06/08/19 03:15 80 18 100 Nasal Cannula 2.0 28 78 18 98 06/08/19 00:04 88 18 99 Nasal Cannula 2.0 28 85 18 95 06/08/19 00:00 81 06/08/19 00:00 98.2 80 19 144/44 (77) 98 06/07/19 21:00 Nasal Cannula 2.0 06/07/19 20:58 81 138/69 06/07/19 20:58 138/69 11/5/19 20:00 98.1 81 19 138/69 (92) 98 06/07/19 20:00 89 06/07/19 19:51 82 18 100 Nasal Cannula 2.0 28 80 18 98 Intake and Output 06/07/19 06/08/19 19:00 07:00 Intake Total 720 ml Output Total 20 ml Balance 700 ml Intake Oral 720 ml Output Urine Total 20 ml # Voids 4 # Bowel Movements 1 Laboratory Tests Test 06/08/19 05:48 White Blood Count 3.1 K/UL (4.8-10.8) L Red Blood Count 2.42 M/UL (4.20-5.40) L Hemoglobin 7.5 G/DL (12.0-16.0) L Hematocrit 22.7 % (37.0-47.0) L Mean Corpuscular Volume 93 FL (80-99) Mean Corpuscular Hemoglobin 31.1 PG (27.0-31.0) H Mean Corpuscular Hemoglobin Concent 33.3 G/DL (32.0-36.0) Red Cell Distribution Width 13.4 % (11.6-14.8) Platelet Count 165 K/UL (150-450) Mean Platelet Volume 6.2 FL (6.5-10.1) L Neutrophils (%) (Auto) % (45.0-75.0) Lymphocytes (%) (Auto) % (20.0-45.0) Monocytes (%) (Auto) % (1.0-10.0) Eosinophils (%) (Auto) % (0.0-3.0) Basophils (%) (Auto) % (0.0-2.0) Differential Total Cells Counted 100 Neutrophils % (Manual) 60 % (45-75) Lymphocytes % (Manual) 28 % (20-45) Monocytes % (Manual) 7 % (1-10) Eosinophils % (Manual) 5 % (0-3) H Basophils % (Manual) 0 % (0-2) Band Neutrophils 0 % (0-8) Platelet Estimate Adequate Platelet Morphology Normal Sodium Level 138 MMOL/L (136-145) Potassium Level 4.4 MMOL/L (3.5-5.1) Chloride Level 103 MMOL/L (98-107) Carbon Dioxide Level 27 MMOL/L (21-32) Anion Gap 8 mmol/L (5-15) Blood Urea Nitrogen 39 mg/dL (7-18) H Creatinine 5.1 MG/DL (0.55-1.30) H Estimat Glomerular Filtration Rate 8.4 mL/min (>60) Glucose Level 148 MG/DL (74-106) H Calcium Level 7.4 MG/DL (8.5-10.1) L Phosphorus Level 4.2 MG/DL (2.5-4.9) Magnesium Level 2.0 MG/DL (1.8-2.4) Total Bilirubin 0.4 MG/DL (0.2-1.0) Aspartate Amino Transf (AST/SGOT) 12 U/L (15-37) L Alanine Aminotransferase (ALT/SGPT) 7 U/L (12-78) L Alkaline Phosphatase 67 U/L (46-116) C-Reactive Protein, Quantitative 2.7 mg/dL (0.00-0.90) H Pro-B-Type Natriuretic Peptide > 50344 pg/mL (0-125) H Total Protein 6.4 G/DL (6.4-8.2) Albumin 3.1 G/DL (3.4-5.0) L Globulin 3.3 g/dL Albumin/Globulin Ratio 0.9 (1.0-2.7) L Objective HEAD AND NECK: Mild JVD. LUNGS: Decreased breath sounds. CARDIOVASCULAR: Regular S1 and S2 with no gallop or murmur. ABDOMEN: Soft. EXTREMITIES: No pitting edema. Zev Gatica MD Jun 08, 2019 16:46
--- NOTE | 2019-06-08 17:35 | NUR ---
NURSE NOTES: Patient discharged, Report given to Ambulance personnel, Heart monitor and IV removed, No distress or bleeding. Patient is in stable condition. Denies pain. Belonging check done and signed by patient. Patient left with ambulance personnel via gurney.
[2019-06-08] MEDS ORDERED: D5NS 1000ml IV ONE (17:53)
--- NOTE | 2019-06-09 10:21 | Discharge Summary ---
Discharge Summary Discharge Summary _ DATE OF ADMISSION: 06/04/2019 DATE OF DISCHARGE: 06/08/2019 DISCHARGED BY: REASON FOR ADMISSION: 69 years old female with past medical history of hypertension, diabetes mellitus , end-stage renal disease , on hemodialysis, ischemic heart disease, was sent from the detention facility with increased generalized weakness and dizziness. No recent fevers. Patient apparently had persistent black stool. Patient had recent endoscopy after episode of bleeding. Nursing staff noticed continued bleeding in her stools. Patient reported mild abdominal pain. No history of alcohol abuse. Upon evaluation vital signs were stable. Laboratory work-up revealed WBC 3.0, hemoglobin 8.8, hematocrit 26.5, platelets 225. Stable electrolytes. BUN 45, creatinine 4.8, consistent with known history of end-stage renal disease. Glucose 219. Troponin 0.044. EKG revealed sinus rhythm , no acute ischemic changes. Stable LFT. Albumin 3.6. Chest x-ray demonstrated pulmonary vascular congestion with interstitial and some airspace disease. Patient subsequently admitted for further management. CONSULTANTS: accounting manager Dr. Oconnell vice president global advertising sales Dr. Herbert GI specialist Dr. Leonard Digital Media Planner Dr. Archer ward nurse Dr. Falk customer data technician/oncologist Dr. Daniels [facility] COURSE: Patient admitted to medical surgical floor. GI consult was requested. Venous duplex bilateral lower extremity revealed no evidence of acute DVT. Hemoglobin and hematocrit were closely monitored with goal to keep hemoglobin above 7. Hemoglobin and hematocrit remained at the baseline . Prior to discharge hemoglobin 7.5, hematocrit 22.7. Per GI specialist patient had recurrent GI bleeding and recently was evaluated with GI procedures . She was found to have gastritis, hemorrhoids and colon polyps. Patient undergone capsule endoscopy on 06/07. Follow-up with the results. EGD and colonoscopy were planned during this admission, but were postponed due to dyspnea. Diet was advanced as tolerated. Patient was able to tolerate diet. Hemodialysis with ultrafiltration provided as per ward nurse with close monitoring of volumes and cardiorenal parameters. Oracle Ebs Architect consulted due to dyspnea Patient with known history of asthma. Supplemental oxygen provided as needed to keep pulse oximetry above 92%. Pulmonary toilet was on board as needed. Prior to discharge pulse oximetry stable on room air. Diesel Engine Fitter followed. Patient complained of shortness of breath and chest pain. Serial troponin were negative. EKG revealed no acute ischemic changes. Patient was ruled out for acute myocardial infarction. Echocardiogram on prior admission, April 19, revealed ejection fraction 50 % with aortic stenosis. Blood pressure was managed with hydralazine and hemodialysis . Intravenous hydralazine was on board as needed to keep blood pressure under control. Hemoglobin and hematocrit were closely monitored with goal to keep hemoglobin above 7. Patient undergone transfusion of 2 units of packed red blood cells. Rheologist followed. Per customer data technician patient had a anemia due to acute blood loss as well as the anemia of chronic kidney disease. Patient started on Epogen as per his ward nurse. Digital Media Planner followed. Anti-glycemic regimen was optimized. Long-acting Levemir was added along with sliding scale of insulin. Patient clinically stabilized and was ready for discharge to detention facility for continuation of care. Follow-up with final results of capsule endoscopy. Patient may need EGD and colonoscopy as outpatient. FINAL DIAGNOSES: Recurrent GI bleeding Anemia due to acute blood loss Gastritis Colon polyps Hemorrhoids End-stage renal disease, on hemodialysis Anemia of chronic kidney disease Coronary artery disease Hypertensive kidney disease Diabetes mellitus type 2 Hypothyroidism GERD Diabetic nephropathy with proteinuria DISCHARGE MEDICATIONS: See Medication Reconciliation list. DISCHARGE INSTRUCTIONS: Patient was discharged to the detention facility. Follow up with medical doctor at the facility. I have been assigned to dictate discharge summary for this account. I was not involved in the patient's management. Kaitlin Durán NP Jun 09, 2019 10:21
--- NOTE | 2019-06-10 11:41 | Cardiology Report ---
APPROVED REPORT EKG Measurement Heart [id number] Normal sinus rhythm Prolonged QT Abnormal ECG
== END 2019-06-08 17:54 | DRG 377 ==
LOC: EMR 12:40 → EDBEDREQ 14:19 → 2E 14:33
PROC: 30233N1 Transfusion of Nonautologous Red Blood Cells into Peripheral Vein, Percutaneous Approach (ICD-10-PCS; principal; 2019-06-05)
PROC: 5A1D70Z Performance of Urinary Filtration, Intermittent, Less than 6 Hours Per Day (ICD-10-PCS; 2019-06-06)
DX: K29.71 Gastritis, unspecified, with bleeding (principal); N18.6 End stage renal disease; D62 Acute posthemorrhagic anemia; I12.0 Hypertensive chronic kidney disease with stage 5 chronic kidney disease or end stage renal disease; K92.1 Melena; N18.9 Chronic kidney disease, unspecified; D63.1 Anemia in chronic kidney disease; E11.21 Type 2 diabetes mellitus with diabetic nephropathy; E11.65 Type 2 diabetes mellitus with hyperglycemia; K64.9 Unspecified hemorrhoids; I25.10 Atherosclerotic heart disease of native coronary artery without angina pectoris; E03.9 Hypothyroidism, unspecified; K80.20 Calculus of gallbladder without cholecystitis without obstruction; E78.5 Hyperlipidemia, unspecified; J45.909 Unspecified asthma, uncomplicated; E53.8 Deficiency of other specified B group vitamins; R06.02 Shortness of breath; R42 Dizziness and giddiness; R26.81 Unsteadiness on feet; K21.9 Gastro-esophageal reflux disease without esophagitis; Z86.010 Personal history of colon polyps
CPT/HCPCS: 36415; 71046; 80048; 80053; 80061; 82607; 82728; 82746; 82962; 82977; 83036; 83540; 83550; 83690; 83735; 83880; 84100; 84443; 84484; 84550; 85007; 85025; 85610; 85730; 86140; 86706; 86850; 86900; 86901; 86920; 93005; 93970; 94640; 94664; 96361; 96365; 99285; J1815; J7620; S5561

== ENCOUNTER 2019-06-21 16:25 | Inpatient (IN) | payer MEDICARE, MEDICAID ==
[~2019-06-21] VITALS: Ht 152.4 cm; Wt 77.6 kg
[2019-06-21 16:34] VITALS: BP 112/67
--- NOTE | 2019-06-21 16:34 | NUR ---
ED Nurse Note: Patient brought in by ambulance from nursing facility [facility] d/t nausea and diarrhea. Patient stated no pain. Patient aao x 4 and ambulatory. Patient placed in gown and cardiac cath technician. No acute distress noted.
--- NOTE | 2019-06-21 16:35 | NUR ---
ED Nurse Note: Patient has dialysis port on left arm. bruit noted. Per EMS, patient has dialysis Thursday, Thursday, and Thursday. Last dialysis was yesterday.
--- NOTE | 2019-06-21 16:39 | Emergency Room Report ---
History of Present Illness General Chief Complaint: Generalized Weakness Present Illness HPI 69-year-old female, history of dialysis Thursday end-stage renal disease, hypertension, GI bleed in the past presents with generalized weakness, generalized abdominal pain, diarrhea x1 day no aggravating alleviating factors severity is moderate, constant, patient states she feels just generalized weakness, patient presents for evaluation Allergies: Coded Allergies: No Known Allergies (Unverified , 05/12/17) Patient History Past Medical History: see triage record Reviewed Nursing Documentation: PMH: Agreed; PSxH: Agreed Nursing Documentation-PMH Hx Cardiac Problems: Yes Hx Hypertension: Yes Hx Pacemaker: No Hx Asthma: Yes Hx COPD: No Hx Diabetes: Yes Hx Cancer: No Hx Gastrointestinal Problems: No Hx Dialysis: Yes - W Hx Neurological Problems: No Hx Transient Ischemic Attacks: Yes - ACUTE ISCHEMIC HEART DISEASE Hx Dementia: No Hx Alzheimer's Disease: No Hx Parkinson's Disease: No Hx Meningitis: No Hx Encephalitis: No Hx Seizures: No Hx Epilepsy: No Hx Multiple Sclerosis: No Hx Cerebral Palsy: No Hx Amyotrophic Lat Sclerosis: No Hx Guillian-[place] Syndrome: No Hx Paralysis: No Hx Peripheral Neuropathy: No Hx Spinal Cord Injury: No Hx Head Trauma: No Hx Traumatic Brain Injury: No Hx Memory Loss: No Hx Concentration Difficulty: No Hx Speech Problem: No Hx Tremors: No Hx Vertigo: Yes Hx Dizziness: No Hx Syncope: No Hx Headaches: No Hx Aphasia: No Hx Dysphasia: No Hx Numbness: No Hx Weakness: Yes - MUSCLE WEAKNESS Hx Fatigue: No Hx Neurologic Surgery: No Hx Brain Shunt: No Review of Systems All Other Systems: negative except mentioned in HPI Physical Exam Vital Signs Date Time Temp Pulse Resp B/P (MAP) Pulse Ox O2 Delivery O2 Flow Rate FiO2 06/21/19 16:22 98.1 63 18 101/48 (65) 94 Room Air Sp02 EP Interpretation: reviewed, normal General Appearance: well appearing, no apparent distress, alert Head: normocephalic, atraumatic Eyes: bilateral eye PERRL, bilateral eye EOMI, bilateral eye conjunctivae pale ENT: uvula midline, moist mucus membranes Neck: supple, thyroid normal, supple/symm/no masses Respiratory: lungs clear, no respiratory distress, no retraction, no accessory muscle use Cardiovascular #1: normal peripheral pulses, regular rate, rhythm, no edema, no gallop, no murmur Gastrointestinal: non tender, soft, no guarding, no rebound Musculoskeletal: normal inspection Neurologic: alert, oriented x3 Psychiatric: mood/affect normal Skin: no rash, warm/dry Medical Decision Making Diagnostic Impression: Primary Impression: Episode of generalized weakness ER Course 69-year-old female presents with generalized weakness, feeling fatigued, with diarrhea, will start a gentle fluid bolus differential diagnosis includes enteritis, symptomatic anemia, ACS Labs show anemia, patient with no active GI bleed We will admit patient for continued evaluation for her generalized weakness Patient admitted to Dr. Daniel Laboratory Tests Test 06/21/19 17:10 White Blood Count 3.8 K/UL (4.8-10.8) L Red Blood Count 2.53 M/UL (4.20-5.40) L Hemoglobin 7.8 G/DL (12.0-16.0) L Hematocrit 22.9 % (37.0-47.0) L Mean Corpuscular Volume 91 FL (80-99) Mean Corpuscular Hemoglobin 31.0 PG (27.0-31.0) Mean Corpuscular Hemoglobin Concent 34.2 G/DL (32.0-36.0) Red Cell Distribution Width 14.0 % (11.6-14.8) Platelet Count 213 K/UL (150-450) Mean Platelet Volume 6.2 FL (6.5-10.1) L Neutrophils (%) (Auto) % (45.0-75.0) Lymphocytes (%) (Auto) % (20.0-45.0) Monocytes (%) (Auto) % (1.0-10.0) Eosinophils (%) (Auto) % (0.0-3.0) Basophils (%) (Auto) % (0.0-2.0) Differential Total Cells Counted 100 Neutrophils % (Manual) 82 % (45-75) H Lymphocytes % (Manual) 12 % (20-45) L Monocytes % (Manual) 6 % (1-10) Eosinophils % (Manual) 0 % (0-3) Basophils % (Manual) 0 % (0-2) Band Neutrophils 0 % (0-8) Platelet Estimate Adequate Platelet Morphology Normal Sodium Level 133 MMOL/L (136-145) L Potassium Level 4.6 MMOL/L (3.5-5.1) Chloride Level 93 MMOL/L (98-107) L Carbon Dioxide Level 36 MMOL/L (21-32) H Anion Gap 4 mmol/L (5-15) L Blood Urea Nitrogen 28 mg/dL (7-18) H Creatinine 5.3 MG/DL (0.55-1.30) H Estimate Glomerular Filtration Rate 8.0 mL/min (>60) Glucose Level 188 MG/DL (74-106) H Calcium Level 7.5 MG/DL (8.5-10.1) L Phosphorus Level 2.8 MG/DL (2.5-4.9) Magnesium Level 2.3 MG/DL (1.8-2.4) Total Bilirubin 0.4 MG/DL (0.2-1.0) Aspartate Amino Transferase (AST) 15 U/L (15-37) Alanine Aminotransferase (ALT) 11 U/L (12-78) L Alkaline Phosphatase 89 U/L (46-116) Troponin I 0.013 ng/mL (0.000-0.056) Pro-B-Type Natriuretic Peptide 89749 pg/mL (0-125) H Total Protein 6.3 G/DL (6.4-8.2) L Albumin 3.2 G/DL (3.4-5.0) L Globulin 3.1 g/dL Albumin/Globulin Ratio 1.0 (1.0-2.7) Lipase 62 U/L (73-393) L EKG Diagnostic Results EKG Time: 17:37 EP Interpretation: Sinus bradycardia, rate 57, QTc 490, no acute ST elevations , normal axis Rhythm Strip Diag. Results Rhythm Strip Time: 17:45 EP Interpretation: yes Rate: 61 Rhythm: NSR, no PVC's, no ectopy Chest X-Ray Diagnostic Results Chest X-Ray Diagnostic Results : Chest X-Ray Ordered: Yes # of Views/Limited/Complete: 1 View Indication: Shortness of Breath EP Interpretation: Yes Interpretation: other - Cardiomegaly Impression: Other - Cardiomegaly Electronically Signed by: shayne Flood MD CT/MRI/US Diagnostic Results CT/MRI/US Diagnostic Results : Impression [facility] [address] [place] [address] [phone], fax [phone] Baron Andrade M.D. Fork Lift Technician Patient : YUNG MAN Referring Physician: Shayne Flood MD ID Number: [id number] Service Date: 06/21/19 : 1950 Report Date: 06/21/19 Gender: F Accession No.: [id number] Location: [facility] Procedure: CT Abdomen Pelvis WO Contrast CT ABDOMEN + PELVIS Without Contrast: Small ascites. Cholelithiasis. Limited due to motion. Due to ascites/edema/motion, cannot exclude cholecystitis, pancreatitis, gastritis, enteritis, colitis. No appendicitis, SBO, or diverticulitis. No hydronephrosis. Small right pleural effusion. Bibasilar mild edema/infiltrates/atelectasis. Cardiomegaly. Small-moderate pericardial effusion. Dictated By: Phong Allen MD Electronically Signed By: Signed Date/Time CC: Last Vital Signs Date Time Temp Pulse Resp B/P (MAP) Pulse Ox O2 Delivery O2 Flow Rate FiO2 06/21/19 16:22 98.1 63 18 101/48 (65) 94 Room Air Disposition: ADMITTED INPATIENT Condition: Stable Shayne Flood MD Jun 21, 2019 16:38
--- NOTE | 2019-06-21 16:54 | NUR ---
ED Nurse Note: pt went down for CT scan in stable condition.
--- NOTE | 2019-06-21 17:02 | NUR ---
ED Nurse Note: Patient returned from CT in stable condition. X-ray at bedside.
--- NOTE | 2019-06-21 17:20 | NUR ---
ED Nurse Note: New IV line 22 gauge started on right hand. blood drawn by Suresh Bates RN. IV line inserted by EMS on left hand removed by Suresh Bates RN due to it being on the same side as dialysis port.
--- NOTE | 2019-06-21 17:36 | Diagnostic Imaging Report ---
Indication: Abdominal pain Technique: Spiral acquisitions obtained through the abdomen and pelvis. No oral contrast utilized, per emergency room physician request No IV contrast utilized, per referring physician request.. Multiplanar reconstructions were generated. Total dose length product 1019 mGycm. CTDIvol(s) 16 mGy. Dose reduction achieved using automated exposure control Comparison: None Findings: Exam is somewhat limited due to motion artifact. A small amount of free intraperitoneal fluid is seen within the pelvis, adjacent to the liver, and adjacent to the spleen. The appendix is normal. There is no evidence of colonic diverticulosis or diverticulitis. No small bowel distention. No free intraperitoneal gas. Distal esophagus and stomach are unremarkable. There is a duodenal diverticulum noted. Lack of IV contrast limits assessment of the solid organs. The gallbladder contains gallstones. There is a equivocal gallbladder wall thickening. No focal liver lesion demonstrated. No biliary ductal dilatation. The pancreas, spleen, adrenals are unremarkable. The kidneys demonstrate calcifications which are probably arterial. There are slightly atrophic. No retroperitoneal or mesenteric mass or adenopathy. No pelvic mass or adenopathy. Normal uterus and adnexal structures. There is very mild edema of the subcutaneous fat. The heart is enlarged. There is a pericardial effusion. There is trace pleural fluid bilaterally. The included lung bases demonstrate some atelectatic changes and possibly some linear scarring. The bones demonstrate degenerative spondylosis changes. Impression: Small amount of free intraperitoneal fluid, nonspecific as regards etiology Trace bilateral pleural fluid Pericardial effusion Cardiomegaly Cholelithiasis. Equivocal mild gallbladder wall thickening, could indicate acute cholecystitis or could be part of the generalized edema process Other findings as noted, including degenerative spondylosis, duodenal diverticulum This agrees with the preliminary interpretation provided overnight by [facility] teleradiology service. The CT scanner at [facility] is accredited by the [employer] and the scans are performed using protocols designed to limit radiation exposure to as low as reasonably achievable to attain images of sufficient resolution adequate for diagnostic evaluation.
[2019-06-21 17:40] LABS: HEMATOCRIT 22.9 % (37.0-47.0); HEMOGLOBIN 7.8 G/DL (12.0-16.0); MEAN CORPUSCULAR VOLUME 91 FL (80-99); PLATELET COUNT 213 K/UL (150-450); RED BLOOD COUNT 2.53 M/UL (4.20-5.40); WHITE BLOOD COUNT 3.8 K/UL (4.8-10.8)
--- NOTE | 2019-06-21 18:00 | NUR ---
ED Nurse Note: pt tried to urinate but unable to.
[2019-06-21 18:06] LABS: ALANINE AMINOTRANSFERASE 11 U/L (12-78); ALBUMIN 3.2 G/DL (3.4-5.0); ASPARTATE AMINO TRANSFERASE 15 U/L (15-37); PHOSPHORUS 2.8 MG/DL (2.5-4.9)
--- NOTE | 2019-06-21 18:07 | NUR ---
ED Nurse Note: ERMD made aware of pt unable to urinate. pt refused catheterization.
[2019-06-21 18:19] LABS: ANION GAP 4 mmol/L (5-15); BLOOD UREA NITROGEN 28 mg/dL (7-18); CALCIUM 7.5 MG/DL (8.5-10.1); CARBON DIOXIDE 36 MMOL/L (21-32); CHLORIDE 93 MMOL/L (98-107); CREATININE 5.3 MG/DL (0.55-1.30); POTASSIUM 4.6 MMOL/L (3.5-5.1); SODIUM 133 MMOL/L (136-145)
[2019-06-21 18:29] LABS: ALKALINE PHOSPHATASE 89 U/L (46-116); BILIRUBIN,TOTAL 0.4 MG/DL (0.2-1.0)
--- NOTE | 2019-06-21 19:06 | NUR ---
HAND-OFF: Report given to SIDNEY Raman.
[2019-06-21] MEDS ORDERED: DOCUSATE SODIU100 MG ORAL (19:11)
[2019-06-21] MEDS ORDERED: BISACODYL5 MG ORAL (19:11)
[2019-06-21] MEDS ORDERED: ZOFRAN4 M3 ORAL (19:15)
[2019-06-21] MEDS ORDERED: ADALAT20 MG ORAL (19:15)
[2019-06-21] MEDS ORDERED: OMEPRAZOLE20 M2 ORAL (19:15)
[2019-06-21] MEDS ORDERED: NOVOLIN R100 UNIT/1 SUBQ (19:15)
[2019-06-21] MEDS ORDERED: NEPHROVITE1 TAB ORAL (19:15)
[2019-06-21] MEDS ORDERED: SORBITOL2000 ML IR (19:15)
--- NOTE | 2019-06-21 19:37 | NUR ---
TRANSFER TO FLOOR: Patient transferred to as ordered, per ERMD. Report given to . Belongings were sent with pt.
--- NOTE | 2019-06-21 19:44 | Pulmonology Progress Note ---
Assessment/Plan Assessment/Plan Pulmonary Consultation HPI Patient is a 69 year old woman, past medical history of end-stage CKD on hemodialysis Thursday, hypertension, GI bleed in the past presents with generalized weakness, generalized abdominal pain, diarrhea x1 day. Denies SOB, chest pain, no hemoptysis Allergies: No Known Allergies Past Medical History: CKD, HD, Hypertension, CAD, Diabetes, HHD, Vertigo, previous GI bleed, Asthma All Other Systems: negative except mentioned in HPI Physical Exam Vital Signs Noted Date Time Temp Pulse Resp B/P (MAP) Pulse Ox O2 Delivery O2 Flow Rate FiO2 06/21/19 16:22 98.1 63 18 101/48 (65) 94 Room Air General Appearance: well appearing, no apparent distress, alert Head: normocephalic, atraumatic Eyes: bilateral eye PERRL, bilateral eye EOMI, pale ENT: uvula midline, moist mucus membranes Neck: supple, thyroid normal, no LN Respiratory: lungs clear, no respiratory distress, no retraction, no accessory muscle use Cardiovascular: normal peripheral pulses, regular rate, rhythm, HS1, HS2 normal ,no edema, no gallop, no murmur Gastrointestinal: non tender, soft, no guarding, no rebound Musculoskeletal: normal inspection Neurologic: alert, oriented x3 Skin: no rash, warm/dry Impression: Episode of generalized weakness CKD Asthma Anemia Diabetes HTN CAD Heart Disease Vertigo Plan: O2 PRN HHN PRN IVF PRN TFN PRN Monitor labs Protonix PPX SPECIAL CERTIFICATE DICTATOR medications HD per Renal Echocardiogram CT Abdomen/Chest: Basal atelectasis versus congestion, Mild pericardial effusion Subjective ROS Limited/Unobtainable: No Neurologic: Reports: weakness Allergies: Coded Allergies: No Known Allergies (Unverified , 05/12/17) Objective Last 24 Hour Vital Signs Date Time Temp Pulse Resp B/P (MAP) Pulse Ox O2 Delivery O2 Flow Rate FiO2 06/21/19 16:34 63 18 Room Air 06/21/19 16:34 98.1 62 18 112/67 94 Room Air 06/21/19 16:22 98.1 63 18 101/48 (65) 94 Room Air Laboratory Tests 06/21/19 17:10: White Blood Count 3.8L, Red Blood Count 2.53L, Hemoglobin 7.8L, Hematocrit 22.9L , Mean Corpuscular Volume 91, Mean Corpuscular Hemoglobin 31.0, Mean Corpuscular Hemoglobin Concent 34.2, Red Cell Distribution Width 14.0, Platelet Count 213, Mean Platelet Volume 6.2L, Neutrophils (%) (Auto) , Lymphocytes (%) ( Auto) , Monocytes (%) (Auto) , Eosinophils (%) (Auto) , Basophils (%) (Auto) , Differential Total Cells Counted 100, Neutrophils % (Manual) 82H, Lymphocytes % (Manual) 12L, Monocytes % (Manual) 6, Eosinophils % (Manual) 0, Basophils % ( Manual) 0, Band Neutrophils 0, Platelet Estimate Adequate, Platelet Morphology Normal, Sodium Level 133L, Potassium Level 4.6, Chloride Level 93L, Carbon Dioxide Level 36H, Anion Gap 4L, Blood Urea Nitrogen 28H, Creatinine 5.3H, Estimat Glomerular Filtration Rate 8.0, Glucose Level 188H, Calcium Level 7.5L, Phosphorus Level 2.8, Magnesium Level 2.3, Total Bilirubin 0.4, Aspartate Amino Transf (AST/SGOT) 15, Alanine Aminotransferase (ALT/SGPT) 11L, Alkaline Phosphatase 89, Troponin I 0.013, Pro-B-Type Natriuretic Peptide 91438G, Total Protein 6.3L, Albumin 3.2L, Globulin 3.1, Albumin/Globulin Ratio 1.0, Lipase 62L Current Medications Medications (Trade) Dose Ordered Sig/Toya Route PRN Reason Start Time Stop Time Status Last Admin Dose Admin Docusate Sodium (Colace) 100 mg THREE TIMES A DAY ORAL 06/22/19 09:00 07/22/19 08:59 Hydralazine HCl (Apresoline) 10 mg Q4H PRN IV bp over 160 syst 06/21/19 19:30 07/21/19 19:29 Brandon Herbert MD Jun 21, 2019 19:44
[2019-06-21 20:08] VITALS: BP 127/55
--- NOTE | 2019-06-21 20:08 | NUR ---
NURSE NOTES: Received report from JEANNETTE Gill RN. Patient was transferred from ER to Telemetry unit via gurney without incident. No signs of acute distress noted; denies pain at this time. AOx4; able to make needs known. Ambulates with assistance. Checked IV site; patent and flushed. No erythema, bleeding, or infiltration noted. Left AV shunt noted; thrill and bruit present. Belongings list checked with patient and transferring RN. Patient put on Tele box; sinus rhythm on the monitor (60s). Skin assessment performed; no wounds noted. Skin intact. Bed at lowest position, brakes on, siderails up x3. Call light within reach. Will continue to monitor.
--- NOTE | 2019-06-21 21:20 | NUR ---
NURSE NOTES: Went over patient's medications with Dr. Herbert. Received admission orders. Noted and carried out.
[2019-06-21] MEDS ORDERED: GABAPENTIN100 MG ORAL (21:47)
[2019-06-21] MEDS ORDERED: Albuterol/Ipratropium 3ml neb HHN PRN (22:00)
[2019-06-22 04:00] VITALS: BP 154/56
--- NOTE | 2019-06-22 04:56 | NUR ---
NURSE NOTES: Spoke to Theresa from [facility] to confirm patient's hemodialysis procedure later today. Was told, "I'll have Phong call you back."
--- NOTE | 2019-06-22 05:42 | Consultation ---
History of Present Illness General Chief Complaint: Generalized Weakness Present Illness Allergies: Coded Allergies: No Known Allergies (Unverified , 05/12/17) Medication History Scheduled Amlodipine Besylate (Norvasc), 10 MG ORAL DAILY Atorvastatin Calcium* (Lipitor*), 10 MG ORAL BEDTIME Calcium Acetate (Calcium Acetate), 1,334 MG PO TID, (Reported) Carvedilol* (Carvedilol*), 25 MG ORAL DAILY, (Reported) Docusate Sodium* (Docusate Sodium*), 100 MG ORAL THREE TIMES A DAY, (Reported) Ezetimibe (Zetia*), 10 MG ORAL DAILY, (Reported) Gabapentin* (Gabapentin*), 100 MG ORAL Q8HR, (Reported) Insulin Detemir (Levemir), 40 UNITS SUBQ DAILY, (Reported) Insulin Regular, Human* (Novolin R*), 10 UNITS SUBQ QHS, (Reported) Insulin Regular, Human* (Novolin R*), 0 SUBQ .SLIDING SCALE, (Reported) Isosorbide Mononitrate (Isosorbide Mononitrate Er), 60 MG PO DAILY, (Reported) Labetalol HCl (Labetalol HCl), 100 MG ORAL BID, (Reported) Levothyroxine Sodium (Levothyroxine Sodium), 137 MCG ORAL DAILY, (Reported) Montelukast Sodium* (Montelukast Sodium*), 10 MG ORAL QPM Nifedipine Er* (Nifedipine Er*), 90 MG ORAL DAILY, (Reported) Vitamin B Cmplx/Vit C/Folic AC (Nephro-Blaze Tablet), 1 TAB ORAL DAILY, (Reported ) Discontinued Medications Aspirin* (Aspirin*), 81 MG ORAL DAILY Discontinued Reason: MD discontinued med Bisacodyl* (Dulcolax*), 5 MG ORAL DAILY, (Reported) Discontinued Reason: MD discontinued med Hydralazine HCl (Hydralazine HCl), 25 MG PO Q6HR PRN for prn, (Reported) Discontinued Reason: Pt stopped taking med Omeprazole (Omeprazole), 20 MG ORAL DAILY, (Reported) Discontinued Reason: MD discontinued med Ondansetron* (Zofran*), 4 MG ORAL Q6H PRN for Nausea & Vomiting, (Reported) Discontinued Reason: MD discontinued med Sorbitol Solution (Sorbitol), 2,000 ML IR, (Reported) Discontinued Reason: MD discontinued med Patient History Healthcare decision maker Resuscitation status Full Code Advanced Directive on File Physical Exam Last 24 Hour Vital Signs Date Time Temp Pulse Resp B/P (MAP) Pulse Ox O2 Delivery O2 Flow Rate FiO2 06/22/19 01:37 Nasal Cannula 2.0 06/22/19 00:00 68 06/21/19 20:08 97.9 64 21 127/55 (79) 95 06/21/19 20:08 64 06/21/19 19:43 62 14 130/116 96 Room Air 06/21/19 16:34 63 18 Room Air 06/21/19 16:34 98.1 62 18 112/67 94 Room Air 06/21/19 16:22 98.1 63 18 101/48 (65) 94 Room Air Intake and Output 06/21/19 06/22/19 19:00 07:00 Intake Total 500 ml Balance 500 ml Intake Oral 0 ml IV Total 500 ml Laboratory Tests Test 06/21/19 17:10 White Blood Count 3.8 K/UL (4.8-10.8) L Red Blood Count 2.53 M/UL (4.20-5.40) L Hemoglobin 7.8 G/DL (12.0-16.0) L Hematocrit 22.9 % (37.0-47.0) L Mean Corpuscular Volume 91 FL (80-99) Mean Corpuscular Hemoglobin 31.0 PG (27.0-31.0) Mean Corpuscular Hemoglobin Concent 34.2 G/DL (32.0-36.0) Red Cell Distribution Width 14.0 % (11.6-14.8) Platelet Count 213 K/UL (150-450) Mean Platelet Volume 6.2 FL (6.5-10.1) L Neutrophils (%) (Auto) % (45.0-75.0) Lymphocytes (%) (Auto) % (20.0-45.0) Monocytes (%) (Auto) % (1.0-10.0) Eosinophils (%) (Auto) % (0.0-3.0) Basophils (%) (Auto) % (0.0-2.0) Differential Total Cells Counted 100 Neutrophils % (Manual) 82 % (45-75) H Lymphocytes % (Manual) 12 % (20-45) L Monocytes % (Manual) 6 % (1-10) Eosinophils % (Manual) 0 % (0-3) Basophils % (Manual) 0 % (0-2) Band Neutrophils 0 % (0-8) Platelet Estimate Adequate Platelet Morphology Normal Sodium Level 133 MMOL/L (136-145) L Potassium Level 4.6 MMOL/L (3.5-5.1) Chloride Level 93 MMOL/L (98-107) L Carbon Dioxide Level 36 MMOL/L (21-32) H Anion Gap 4 mmol/L (5-15) L Blood Urea Nitrogen 28 mg/dL (7-18) H Creatinine 5.3 MG/DL (0.55-1.30) H Estimat Glomerular Filtration Rate 8.0 mL/min (>60) Glucose Level 188 MG/DL (74-106) H Calcium Level 7.5 MG/DL (8.5-10.1) L Phosphorus Level 2.8 MG/DL (2.5-4.9) Magnesium Level 2.3 MG/DL (1.8-2.4) Total Bilirubin 0.4 MG/DL (0.2-1.0) Aspartate Amino Transf (AST/SGOT) 15 U/L (15-37) Alanine Aminotransferase (ALT/SGPT) 11 U/L (12-78) L Alkaline Phosphatase 89 U/L (46-116) Troponin I 0.013 ng/mL (0.000-0.056) Pro-B-Type Natriuretic Peptide 84403 pg/mL (0-125) H Total Protein 6.3 G/DL (6.4-8.2) L Albumin 3.2 G/DL (3.4-5.0) L Globulin 3.1 g/dL Albumin/Globulin Ratio 1.0 (1.0-2.7) Lipase 62 U/L (73-393) L Height (Feet): 5 Height (Inches): 0.00 Weight (Pounds): 160 Medications Current Medications Medications (Trade) Dose Ordered Sig/Toya Route PRN Reason Start Time Stop Time Status Last Admin Dose Admin Acetaminophen (Tylenol) 650 mg Q6H PRN ORAL Mild Pain/Temp > 100.5 06/21/19 22:00 07/21/19 21:59 Albuterol/ Ipratropium (Albuterol/ Ipratropium) 3 ml Q6HR PRN HHN Shortness of Breath 06/21/19 22:00 06/26/19 21:59 Amlodipine Besylate (Norvasc) 10 mg DAILY ORAL 06/22/19 09:00 07/22/19 08:59 Atorvastatin Calcium (Lipitor) 10 mg BEDTIME ORAL 06/22/19 21:00 07/22/19 20:59 Calcium Acetate (Phoslo) 1,334 mg TID ORAL 06/22/19 09:00 07/22/19 08:59 Carvedilol (Coreg) 25 mg DAILY ORAL 06/22/19 09:00 07/22/19 08:59 Dextrose (Dextrose 50%) 25 ml Q30M PRN IV Hypoglycemia 06/21/19 21:45 07/21/19 21:44 Dextrose (Dextrose 50%) 50 ml Q30M PRN IV Hypoglycemia 06/21/19 21:45 07/21/19 21:44 Docusate Sodium (Colace) 100 mg THREE TIMES A DAY ORAL 06/22/19 09:00 07/22/19 08:59 EZETIMIBE (Zetia) 10 mg DAILY ORAL 06/22/19 09:00 07/22/19 08:59 Gabapentin (Neurontin) 100 mg Q8HR ORAL 06/21/19 22:00 07/21/19 21:59 06/21/19 22:37 Hydralazine HCl (Apresoline) 10 mg Q4H PRN IV bp over 160 syst 06/21/19 19:30 07/21/19 19:29 Insulin Aspart (NovoLOG) BEFORE MEALS AND HS SUBQ 06/22/19 06:30 07/22/19 06:29 Insulin Detemir (Levemir) 20 units DAILY SUBQ 06/22/19 09:00 07/22/19 08:59 Isosorbide Mononitrate (Imdur) 60 mg DAILY ORAL 06/22/19 09:00 07/22/19 08:59 Labetalol HCl (Normodyne) 100 mg BID ORAL 06/22/19 09:00 07/22/19 08:59 Levothyroxine Sodium (Synthroid) 25 mcg DAILY@0630 ORAL 06/22/19 06:30 07/22/19 06:29 Levothyroxine Sodium (Synthroid) 112 mcg ACBREAKFAST ORAL 06/22/19 06:30 07/22/19 06:29 Montelukast Sodium (Singulair) 10 mg QPM ORAL 06/22/19 16:30 07/22/19 16:29 Nifedipine (Procardia XL) 90 mg DAILY ORAL 06/22/19 09:00 07/22/19 08:59 Ondansetron HCl (Zofran) 4 mg Q6H PRN IVP Nausea & Vomiting 06/21/19 21:57 07/21/19 21:56 Pantoprazole (Protonix) 40 mg EVERY 12 HOURS IVP 06/22/19 09:00 07/22/19 08:59 Vitamin B Complex/ Vit C/Folic Acid (Nephrovite) 1 tab DAILY ORAL 06/22/19 09:00 07/22/19 08:59 Assessment/Plan Assessment/Plan: HEMATOLOGY/ONCOLOGY CONSULTATION REQUESTING PHYSICIAN: Makenna Faustin M.D. DOS: 06/22/19 REASON FOR CONSULTATION: Anemia. hx Leukopenia, low b12 level IDENTIFYING DATA: Dear Dr. Faustin, 69 -year-old female well known to me from prior admission from 2 weeks ago, with a past medical history significant for end-stage renal disease, on hemodialysis three times a week, completed dialysis recently as per renal but had ongoing fatigue and shortness of breath, as well as diarrhea (last admission had black tarry stool) admitted through er for generalized weakness, is swedish speaking. She reported no current loss of consciousness. No pulmonary embolism. No fever, no chills, no night sweats reported. Hgb was 8.8 , vitals stable. Heme now consulted. PAST MEDICAL HISTORY: As noted above. MEDICATIONS: Reviewed. ALLERGIES: No known drug allergies. REVIEW OF SYSTEMS: CONSTITUTIONAL: No fever, chills, or night sweats. SKIN: No rashes, bumps, or itching. HEENT: No headache, hearing or vision changes. BREASTS: No lumps, pain, or discharge. PULMONARY: No cough, sputum, or shortness of breath. GASTROINTESTINAL: No nausea, vomiting, or diarrhea. GENITOURINARY: No dysuria, frequency, or urgency. MUSCULOSKELETAL: No joint swelling, muscle pain, or trauma. PHYSICAL EXAMINATION: VITAL SIGNS: Reviewed. GENERAL: No distress. PULMONARY: Decreased breath sounds. ++ nc CARDIOVASCULAR: Regular rate. No S3 or S4. ABDOMEN: Soft, nontender, and nondistended. EXTREMITIES: No cyanosis, swelling, or edema. ++ Left AVS Labs: noted above Imaging: noted Assessment/Plan 1. Anemia due to underlying chronic disease. Have reviewed prior workup, ferritin is >1000, though percent saturation Tsat <30, but not recommended for further iron --> Continue to closely monitor. --> Transfuse if hgb <7 --> if ferritin <500, give iron suppl --> give epogen, has been started 3x a week --> as per renal --> monitor for gi bleed, gi consulted --> hgb trend 7.8 2. Leukopenia likely reactive process v infection v from meds --> hepatitis and hiv prior negative --> neutropenic precautions if ANC <1500 --> trending stable --> imaging reviewed and no hsm / cirrhosis noted --> wbc 2.7-->3.4 --> ANC goal >1500 3. End-stage renal disease, on hemodialysis three times a week. --> renal consulted --> continue hd 4. History of coronary artery disease. --> cards reviewed --> diuresis prn 5. History of anemia due to low B12, low iron --> b12 is currently within normal limits --> reobtain q6mo 6. Dizziness and unsteady gait 7. DVt ppsx with SCDs Greatly appreciate consultation and Selvin LITTLE am. Carl Daniels MD Jun 22, 2019 05:42
[2019-06-22] MEDS: NovoLOG Insulin Flexpen SUBQ SCH ×4 (06:37→21:01)
[2019-06-22] MEDS: Levothyroxine 25mcg tab ORAL SCH (06:38)
[2019-06-22 07:27] LABS: HEMATOCRIT 23.6 % (37.0-47.0); HEMOGLOBIN 7.8 G/DL (12.0-16.0); MEAN CORPUSCULAR VOLUME 94 FL (80-99); PLATELET COUNT 221 K/UL (150-450); RED BLOOD COUNT 2.51 M/UL (4.20-5.40); WHITE BLOOD COUNT 4.1 K/UL (4.8-10.8)
--- NOTE | 2019-06-22 07:46 | NUR ---
HAND-OFF: Report given to SIDNEY Otto. Patient is awake eating breakfast. Endorsed to morning shift RN regarding patient's dialysis procedure later today; verbalized understanding. In stable condition.
--- NOTE | 2019-06-22 07:48 | NUR ---
NURSE NOTES: Received report from Vinita/RN, Patient is lying semi-welch's, resting comfortably, On room air, No acute distress/SOB noted. AAO x 4, Able to make needs known, Denies pain at this time. IV site on Right hand, patent, no bleeding or infiltration noted. Bed in low position and locked, Bed alarm engaged, side rails up x2. Call light within reach, Encouraged to use call light when needed. Will continue plan of care.
[2019-06-22 07:58] LABS: ALANINE AMINOTRANSFERASE 12 U/L (12-78); ALBUMIN 3.2 G/DL (3.4-5.0); ALBUMIN/GLOBULIN RATIO 0.9 (1.0-2.7); ALKALINE PHOSPHATASE 93 U/L (46-116); ANION GAP 4 mmol/L (5-15); ASPARTATE AMINO TRANSFERASE 12 U/L (15-37); BILIRUBIN,TOTAL 0.4 MG/DL (0.2-1.0); BLOOD UREA NITROGEN 33 mg/dL (7-18); CALCIUM 7.2 MG/DL (8.5-10.1); CARBON DIOXIDE 37 MMOL/L (21-32); CHLORIDE 97 MMOL/L (98-107); CREATININE 5.7 MG/DL (0.55-1.30); FERRITIN 1425 NG/ML (8-388); PHOSPHORUS 3.1 MG/DL (2.5-4.9); POTASSIUM 3.8 MMOL/L (3.5-5.1); SODIUM 138 MMOL/L (136-145)
[2019-06-22 08:00] VITALS: BP 145/64
[2019-06-22 08:13] LABS: % IRON SATURATION 22 % (15-50); IRON 43 ug/dL (50-175); TOTAL IRON BINDING CAPACITY 196 ug/dL (250-450)
[2019-06-22] MEDS ORDERED: Carvedilol 25mg Tab ORAL SCH (09:00)
[2019-06-22] MEDS ORDERED: Levemir Flexpen SUBQ SCH (09:00)
[2019-06-22] MEDS: Nephrovite tab (Rena-Vite) ORAL SCH (09:17)
[2019-06-22] MEDS: Pantoprazole Inj IVP SCH ×2 (09:17→21:00)
[2019-06-22] MEDS: Docusate 100mg cap ORAL SCH ×3 (09:17→17:10)
[2019-06-22] MEDS: Calcium Acetate 667mg Tab ORAL SCH ×3 (09:17→17:10)
[2019-06-22] MEDS: Imdur 30mg tab ORAL SCH (09:18)
--- NOTE | 2019-06-22 09:55 | Diagnostic Imaging Report ---
Indication: Shortness of breath Technique: One view of the chest Comparison: 06/06/2019 Findings: The heart is markedly enlarged. Previously demonstrated interstitial edema has largely cleared, there may be mild congestion centrally. There is central bronchial wall thickening. There are small bilateral pleural effusions, stable on the right, markedly improved on the left. Impression: Cardiomegaly Equivocal mild interstitial congestion, markedly improved since 06/06/2019 Small bilateral pleural effusions
[2019-06-22 12:00] VITALS: BP 176/63
--- NOTE | 2019-06-22 12:18 | Consultation ---
Consult Note Consult Note patient under my care for dialysis management 69-year-old female, history of dialysis Thursday end-stage renal disease, hypertension, GI bleed in the past presents with generalized weakness, generalized abdominal pain, diarrhea x1 day no aggravating alleviating factors severity is moderate, constant, patient states she feels just generalized weakness, patient presents for evaluation No Known Allergies (Unverified , 05/12/17) Hx Cardiac Problems: Yes Hx Hypertension: Yes Hx Asthma: Yes Hx Diabetes: Yes Hx Dialysis: Yes - M W F Hx Transient Ischemic Attacks: Yes - ACUTE ISCHEMIC HEART DISEASE Hx Weakness: Yes - MUSCLE WEAKNESS examined data reviewed Assessment/Plan h/o GI bleed present with melena, worsening Anemia ESRD M W Fr h/o Pulm Edema DM HTN Anemia B12 and Iron def CAD . HD as needed Transfuse BP and BS check Previously 2D Echo Ej Fx 50 % PACO: Hepatosplenomegaly. Question of medical renal disease. Small nonobstructive stone in the left kidney suspected. Cholelithiasis Francis Falk MD Jun 22, 2019 12:18
[2019-06-22 16:00] VITALS: BP 159/60
--- NOTE | 2019-06-22 16:11 | Pulmonology Progress Note ---
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 Denies SOB, chest pain, no hemoptysis No new complaints, improved symptoms s/p HD and TFN Allergies: No Known Allergies Past Medical History: CKD, HD, Hypertension, CAD, Diabetes, HHD, Vertigo, previous GI bleed All Other Systems: negative except mentioned in HPI Physical Exam Vital Signs Noted General Appearance: well appearing, no apparent distress, alert Head: normocephalic, atraumatic Eyes: bilateral eye PERRL, bilateral eye EOMI, pale ENT: uvula midline, moist mucus membranes Neck: supple, thyroid normal, no LN Respiratory: lungs clear, no respiratory distress, no retraction, no accessory muscle use Cardiovascular: normal peripheral pulses, regular rate, rhythm, HS1, HS2 normal ,no edema, no gallop, no murmur Gastrointestinal: non tender, soft, no guarding, no rebound Musculoskeletal: normal inspection Neurologic: alert, oriented x3 Skin: no rash, warm/dry Impression: Episode of generalized weakness CKD Anemia Diabetes HTN CAD Heart Disease Vertigo Plan: O2 PRN IVF PRN TFN PRN Monitor labs Protonix PPX SNAILER medications HD per Renal Echocardiogram CT Abdomen/Chest: Basal atelectasis versus congestion, Mild pericardial effusion Subjective ROS Limited/Unobtainable: No Allergies: Coded Allergies: No Known Allergies (Unverified , 05/12/17) Objective Last 24 Hour Vital Signs Date Time Temp Pulse Resp B/P (MAP) Pulse Ox O2 Delivery O2 Flow Rate FiO2 06/22/19 13:13 179/99 06/22/19 12:00 98.0 61 16 176/63 (100) 98 06/22/19 12:00 64 06/22/19 09:18 145/64 06/22/19 09:00 68 145/64 06/22/19 09:00 68 145/64 06/22/19 09:00 68 145/64 06/22/19 09:00 68 145/64 06/22/19 09:00 Nasal Cannula 2.0 06/22/19 08:00 70 06/22/19 08:00 98.1 68 16 145/64 (91) 99 06/22/19 04:00 98.6 68 18 154/56 (88) 100 06/22/19 04:00 58 06/22/19 01:37 Nasal Cannula 2.0 06/22/19 00:00 68 06/21/19 20:08 97.9 64 21 127/55 (79) 95 06/21/19 20:08 64 06/21/19 19:43 62 14 130/116 96 Room Air 06/21/19 16:34 63 18 Room Air 06/21/19 16:34 98.1 62 18 112/67 94 Room Air 06/21/19 16:22 98.1 63 18 101/48 (65) 94 Room Air Intake and Output 06/21/19 06/22/19 19:00 07:00 Intake Total 500 ml 200 ml Balance 500 ml 200 ml Intake Oral 0 ml 200 ml IV Total 500 ml # Voids 1 Laboratory Tests 06/21/19 17:10: White Blood Count 3.8L, Red Blood Count 2.53L, Hemoglobin 7.8L, Hematocrit 22.9L , Mean Corpuscular Volume 91, Mean Corpuscular Hemoglobin 31.0, Mean Corpuscular Hemoglobin Concent 34.2, Red Cell Distribution Width 14.0, Platelet Count 213, Mean Platelet Volume 6.2L, Neutrophils (%) (Auto) , Lymphocytes (%) ( Auto) , Monocytes (%) (Auto) , Eosinophils (%) (Auto) , Basophils (%) (Auto) , Differential Total Cells Counted 100, Neutrophils % (Manual) 82H, Lymphocytes % (Manual) 12L, Monocytes % (Manual) 6, Eosinophils % (Manual) 0, Basophils % ( Manual) 0, Band Neutrophils 0, Platelet Estimate Adequate, Platelet Morphology Normal, Sodium Level 133L, Potassium Level 4.6, Chloride Level 93L, Carbon Dioxide Level 36H, Anion Gap 4L, Blood Urea Nitrogen 28H, Creatinine 5.3H, Estimat Glomerular Filtration Rate 8.0, Glucose Level 188H, Calcium Level 7.5L, Phosphorus Level 2.8, Magnesium Level 2.3, Total Bilirubin 0.4, Aspartate Amino Transf (AST/SGOT) 15, Alanine Aminotransferase (ALT/SGPT) 11L, Alkaline Phosphatase 89, Troponin I 0.013, Pro-B-Type Natriuretic Peptide 92863S, Total Protein 6.3L, Albumin 3.2L, Globulin 3.1, Albumin/Globulin Ratio 1.0, Lipase 62L 06/22/19 06:00: Free Thyroxine 1.20, Free Triiodothyronine 1.7L 06/22/19 06:01: White Blood Count 4.1L, Red Blood Count 2.51L, Hemoglobin 7.8L, Hematocrit 23.6L , Mean Corpuscular Volume 94, Mean Corpuscular Hemoglobin 31.2H, Mean Corpuscular Hemoglobin Concent 33.2, Red Cell Distribution Width 15.0H, Platelet Count 221, Mean Platelet Volume 5.6L, Neutrophils (%) (Auto) , Lymphocytes (%) (Auto) , Monocytes (%) (Auto) , Eosinophils (%) (Auto) , Basophils (%) (Auto) , Differential Total Cells Counted 100, Neutrophils % ( Manual) 75, Lymphocytes % (Manual) 14L, Monocytes % (Manual) 8, Eosinophils % ( Manual) 3, Basophils % (Manual) 0, Band Neutrophils 0, Platelet Estimate Adequate, Platelet Morphology Normal, Sodium Level 138, Potassium Level 3.8, Chloride Level 97L, Carbon Dioxide Level 37H, Anion Gap 4L, Blood Urea Nitrogen 33H, Creatinine 5.7H, Estimat Glomerular Filtration Rate 7.3, Glucose Level 123H , Calcium Level 7.2L, Phosphorus Level 3.1, Magnesium Level 2.4, Total Bilirubin 0.4, Aspartate Amino Transf (AST/SGOT) 12L, Alanine Aminotransferase ( ALT/SGPT) 12, Alkaline Phosphatase 93, Troponin I 0.019, Pro-B-Type Natriuretic Peptide > 94291V, Total Protein 6.6, Albumin 3.2L, Globulin 3.4, Albumin/ Globulin Ratio 0.9L, Uric Acid 5.4, Iron Level 43L, Total Iron Binding Capacity 196L, Percent Iron Saturation 22, Unsaturated Iron Binding 153, Ferritin 1425H, C-Reactive Protein, Quantitative 3.1H, Vitamin B12 Level 447, Folate 14.7, Thyroid Stimulating Hormone (TSH) 1.444 Current Medications Medications (Trade) Dose Ordered Sig/Toya Route PRN Reason Start Time Stop Time Status Last Admin Dose Admin Acetaminophen (Tylenol) 650 mg Q6H PRN ORAL Mild Pain/Temp > 100.5 06/21/19 22:00 07/21/19 21:59 Albuterol/ Ipratropium (Albuterol/ Ipratropium) 3 ml Q6HR PRN HHN Shortness of Breath 06/21/19 22:00 06/26/19 21:59 Amlodipine Besylate (Norvasc) 10 mg DAILY ORAL 06/22/19 09:00 07/22/19 08:59 Atorvastatin Calcium (Lipitor) 10 mg BEDTIME ORAL 06/22/19 21:00 07/22/19 20:59 Calcium Acetate (Phoslo) 1,334 mg TID ORAL 06/22/19 09:00 07/22/19 08:59 06/22/19 13:00 Carvedilol (Coreg) 25 mg DAILY ORAL 06/22/19 09:00 07/22/19 08:59 Dextrose (Dextrose 50%) 25 ml Q30M PRN IV Hypoglycemia 06/21/19 21:45 07/21/19 21:44 Dextrose (Dextrose 50%) 50 ml Q30M PRN IV Hypoglycemia 06/21/19 21:45 07/21/19 21:44 Docusate Sodium (Colace) 100 mg THREE TIMES A DAY ORAL 06/22/19 09:00 07/22/19 08:59 06/22/19 13:00 EZETIMIBE (Zetia) 10 mg DAILY ORAL 06/22/19 09:00 07/22/19 08:59 06/22/19 09:18 Gabapentin (Neurontin) 100 mg Q8HR ORAL 06/21/19 22:00 07/21/19 21:59 06/22/19 13:07 Hydralazine HCl (Apresoline) 10 mg Q4H PRN IV bp over 160 syst 06/21/19 19:30 07/21/19 19:29 06/22/19 13:13 Insulin Aspart (NovoLOG) BEFORE MEALS AND HS SUBQ 06/22/19 06:30 07/22/19 06:29 06/22/19 13:10 Insulin Detemir (Levemir) 20 units Q24H SUBQ 06/23/19 06:30 07/23/19 06:29 Isosorbide Mononitrate (Imdur) 60 mg DAILY ORAL 06/22/19 09:00 07/22/19 08:59 06/22/19 09:18 Labetalol HCl (Normodyne) 100 mg BID ORAL 06/22/19 09:00 07/22/19 08:59 Levothyroxine Sodium (Synthroid) 25 mcg DAILY@0630 ORAL 06/22/19 06:30 07/22/19 06:29 06/22/19 06:38 Levothyroxine Sodium (Synthroid) 112 mcg ACBREAKFAST ORAL 06/22/19 06:30 07/22/19 06:29 06/22/19 06:38 Montelukast Sodium (Singulair) 10 mg QPM ORAL 06/22/19 16:30 07/22/19 16:29 Nifedipine (Procardia XL) 90 mg DAILY ORAL 06/22/19 09:00 07/22/19 08:59 Ondansetron HCl (Zofran) 4 mg Q6H PRN IVP Nausea & Vomiting 06/21/19 21:57 07/21/19 21:56 Pantoprazole (Protonix) 40 mg EVERY 12 HOURS IVP 06/22/19 09:00 07/22/19 08:59 06/22/19 09:17 Vitamin B Complex/ Vit C/Folic Acid (Nephrovite) 1 tab DAILY ORAL 06/22/19 09:00 07/22/19 08:59 06/22/19 09:17 Brandon Herbert MD Jun 22, 2019 16:11
--- NOTE | 2019-06-22 16:41 | Cardiac Electrophysiology PN ---
Subjective Subjective [id number] Objective Last 24 Hour Vital Signs Date Time Temp Pulse Resp B/P (MAP) Pulse Ox O2 Delivery O2 Flow Rate FiO2 06/22/19 13:13 179/99 06/22/19 12:00 98.0 61 16 176/63 (100) 98 06/22/19 12:00 64 06/22/19 09:18 145/64 06/22/19 09:00 68 145/64 06/22/19 09:00 68 145/64 06/22/19 09:00 68 145/64 06/22/19 09:00 68 145/64 06/22/19 09:00 Nasal Cannula 2.0 06/22/19 08:00 70 06/22/19 08:00 98.1 68 16 145/64 (91) 99 06/22/19 04:00 98.6 68 18 154/56 (88) 100 06/22/19 04:00 58 06/22/19 01:37 Nasal Cannula 2.0 06/22/19 00:00 68 06/21/19 20:08 97.9 64 21 127/55 (79) 95 06/21/19 20:08 64 06/21/19 19:43 62 14 130/116 96 Room Air Intake and Output 06/21/19 06/22/19 19:00 07:00 Intake Total 500 ml 200 ml Balance 500 ml 200 ml Intake Oral 0 ml 200 ml IV Total 500 ml # Voids 1 Laboratory Tests Test 06/21/19 17:10 06/22/19 06:00 06/22/19 06:01 White Blood Count 3.8 K/UL (4.8-10.8) L 4.1 K/UL (4.8-10.8) L Red Blood Count 2.53 M/UL (4.20-5.40) L 2.51 M/UL (4.20-5.40) L Hemoglobin 7.8 G/DL (12.0-16.0) L 7.8 G/DL (12.0-16.0) L Hematocrit 22.9 % (37.0-47.0) L 23.6 % (37.0-47.0) L Mean Corpuscular Volume 91 FL (80-99) 94 FL (80-99) Mean Corpuscular Hemoglobin 31.0 PG (27.0-31.0) 31.2 PG (27.0-31.0) H Mean Corpuscular Hemoglobin Concent 34.2 G/DL (32.0-36.0) 33.2 G/DL (32.0-36.0) Red Cell Distribution Width 14.0 % (11.6-14.8) 15.0 % (11.6-14.8) H Platelet Count 213 K/UL (150-450) 221 K/UL (150-450) Mean Platelet Volume 6.2 FL (6.5-10.1) L 5.6 FL (6.5-10.1) L Neutrophils (%) (Auto) % (45.0-75.0) % (45.0-75.0) Lymphocytes (%) (Auto) % (20.0-45.0) % (20.0-45.0) Monocytes (%) (Auto) % (1.0-10.0) % (1.0-10.0) Eosinophils (%) (Auto) % (0.0-3.0) % (0.0-3.0) Basophils (%) (Auto) % (0.0-2.0) % (0.0-2.0) Differential Total Cells Counted 100 100 Neutrophils % (Manual) 82 % (45-75) H 75 % (45-75) Lymphocytes % (Manual) 12 % (20-45) L 14 % (20-45) L Monocytes % (Manual) 6 % (1-10) 8 % (1-10) Eosinophils % (Manual) 0 % (0-3) 3 % (0-3) Basophils % (Manual) 0 % (0-2) 0 % (0-2) Band Neutrophils 0 % (0-8) 0 % (0-8) Platelet Estimate Adequate Adequate Platelet Morphology Normal Normal Sodium Level 133 MMOL/L (136-145) L 138 MMOL/L (136-145) Potassium Level 4.6 MMOL/L (3.5-5.1) 3.8 MMOL/L (3.5-5.1) Chloride Level 93 MMOL/L (98-107) L 97 MMOL/L (98-107) L Carbon Dioxide Level 36 MMOL/L (21-32) H 37 MMOL/L (21-32) H Anion Gap 4 mmol/L (5-15) L 4 mmol/L (5-15) L Blood Urea Nitrogen 28 mg/dL (7-18) H 33 mg/dL (7-18) H Creatinine 5.3 MG/DL (0.55-1.30) H 5.7 MG/DL (0.55-1.30) H Estimat Glomerular Filtration Rate 8.0 mL/min (>60) 7.3 mL/min (>60) Glucose Level 188 MG/DL (74-106) H 123 MG/DL (74-106) H Calcium Level 7.5 MG/DL (8.5-10.1) L 7.2 MG/DL (8.5-10.1) L Phosphorus Level 2.8 MG/DL (2.5-4.9) 3.1 MG/DL (2.5-4.9) Magnesium Level 2.3 MG/DL (1.8-2.4) 2.4 MG/DL (1.8-2.4) Total Bilirubin 0.4 MG/DL (0.2-1.0) 0.4 MG/DL (0.2-1.0) Aspartate Amino Transf (AST/SGOT) 15 U/L (15-37) 12 U/L (15-37) L Alanine Aminotransferase (ALT/SGPT) 11 U/L (12-78) L 12 U/L (12-78) Alkaline Phosphatase 89 U/L (46-116) 93 U/L (46-116) Troponin I 0.013 ng/mL (0.000-0.056) 0.019 ng/mL (0.000-0.056) Pro-B-Type Natriuretic Peptide 35412 pg/mL (0-125) H > 88680 pg/mL (0-125) H Total Protein 6.3 G/DL (6.4-8.2) L 6.6 G/DL (6.4-8.2) Albumin 3.2 G/DL (3.4-5.0) L 3.2 G/DL (3.4-5.0) L Globulin 3.1 g/dL 3.4 g/dL Albumin/Globulin Ratio 1.0 (1.0-2.7) 0.9 (1.0-2.7) L Lipase 62 U/L (73-393) L Free Thyroxine 1.20 NG/DL (0.76-1.46) Free Triiodothyronine 1.7 pg/mL (2.3-4.2) L Uric Acid 5.4 MG/DL (2.6-7.2) Iron Level 43 ug/dL (50-175) L Total Iron Binding Capacity 196 ug/dL (250-450) L Percent Iron Saturation 22 % (15-50) Unsaturated Iron Binding 153 ug/dL (112-346) Ferritin 1425 NG/ML (8-388) H C-Reactive Protein, Quantitative 3.1 mg/dL (0.00-0.90) H Vitamin B12 Level 447 PG/ML (193-986) Folate 14.7 NG/ML (8.6-58.9) Thyroid Stimulating Hormone (TSH) 1.444 uiU/mL (0.358-3.740) Zev Gatica MD Jun 22, 2019 16:41
[2019-06-22] MEDS: Montelukast 10mg tablet ORAL SCH (17:10)
[2019-06-22] MEDS: HydrALAZINE 50mg tab ORAL SCH (17:11)
[2019-06-22] MEDS ORDERED: OMEPRAZOLE20 M2 ORAL (19:03)
[2019-06-22] MEDS ORDERED: CALCIUM ACETAT667 M1 PO (19:03)
[2019-06-22] MEDS ORDERED: ASPIRIN81 MG ORAL (19:03)
[2019-06-22] MEDS ORDERED: ADVANCED ANTAC355 ML ORAL (19:03)
[2019-06-22] MEDS ORDERED: VITAMIN A & D454 GM TOP (19:03)
[2019-06-22] MEDS ORDERED: ZOFRAN4 M3 ORAL (19:03)
--- NOTE | 2019-06-22 19:45 | NUR ---
HAND-OFF: Report given to Baron/RN, Patient is in stable condition. Endorsed plan of care.
--- NOTE | 2019-06-22 19:50 | NUR ---
NURSE NOTES: Received report from Delfino Rangel RN. Patient in bed AAO X4 with no complaints of acute pain or discomfort at this time. Ambulates with assistance to the bathroom. IV line intact and patent with SHAMEKA AV shunt for HD (MWF). On 2L NC PRN. no S/S of SOB noted. Safety precaution in place; siderails X3 up, call light within reach, bed in lowest position, brakes and alarm on at all times. needs and wants anticipated and attended. Will continue plan of care and monitor for any changes noted. HD done today with 2L out
[2019-06-22 20:00] VITALS: BP 134/82
--- NOTE | 2019-06-22 20:10 | NUR ---
HAND-OFF: Report given to Wali Maciel RN. Patient comfortable in bed with no complaints of acute pain, endorsed plan of care.
--- NOTE | 2019-06-22 20:14 | NUR ---
NURSE NOTES: Received report from SIDNEY Draper. Patient is resting in bed comfortably. Pt currently on 2L NC for SOB and current O2 Sat of 96% No signs of cardiac distress noted. Patient is alert and oriented x 4 and able to make needs known. Pt currently denies pain. R hand 22g IV site remains asymptomatic, patent and intact. AV Shunt positive for bruit and thrill. Skin remains intact. Pt currently refuses SCDs. Bed in low position, safety wheels engaged, bed alarm activated, side rails up x2, call light within reach. Pt encouraged to use call light when needed. Will continue to monitor. Will continue plan of care.
[2019-06-22] MEDS ORDERED: Insulin Human Regular 100units/ml 3ml SUBQ SCH (21:00)
--- NOTE | 2019-06-22 21:34 | NUR ---
NURSE NOTES: Patient provided with a bed bath, complete linen change and oral care. Patient tolerated care well. Patient remains resting in bed; bed is in lowest position, safety wheels engaged, side rails up x3, bed alarm activated and call light within reach. Will continue to monitor.
--- NOTE | 2019-06-22 22:15 | Consultation ---
DATE OF CONSULTATION: 06/22/2019 CARDIOLOGY CONSULTATION CONSULTING PHYSICIAN: Zev Gatica M.D. REFERRING PHYSICIAN: Makenna Daniel M.D. REASON FOR CONSULTATION: Management of hypertension, pulmonary hypertension, and aortic stenosis. HISTORY OF PRESENT ILLNESS: The patient is a 69-year-old lady with history of hypertension, diabetes, and aortic stenosis, as well as severe pulmonary hypertension, who was just recently discharged from the hospital just less than two weeks ago. She also has end-stage renal disease, on hemodialysis 3 times a week. The patient presented to the emergency room complaining of fatigue and shortness of breath and diarrhea. The patient admitted to the ER with generalized weakness. The patient did not have any loss of consciousness or fever or chills. Cardiology consultation was obtained for further evaluation and management. REVIEW OF SYSTEMS: Review of systems was negative other than what is mentioned in the history of present illness. PAST MEDICAL HISTORY: As mentioned above. FAMILY HISTORY: Noncontributory. SOCIAL HISTORY: She does not smoke or drink alcohol. PHYSICAL EXAMINATION: VITAL SIGNS: Show blood pressure of 179/99, pulse is 60, respirations 18, and temperature is 98. HEAD AND NECK: Showed no JVD or carotid bruits. LUNGS: Decreased breath sounds. CARDIOVASCULAR: Shows regular S1 and S2 with no gallops. A 2/6 systolic murmur. ABDOMEN: Soft. EXTREMITIES: No pitting edema. LABORATORY DATA: Labs show white count of 4.1, hemoglobin 7.8, hematocrit of 23.6, and platelet count of 221,000. Sodium 138, potassium 3.8, BUN of 33, creatinine 5.7, and glucose of 123. Troponin negative x2. BNP is more than 35,000. Her echocardiogram showed ejection fraction of 50 to 55 percent, mild tricuspid regurgitation, and severe pulmonary hypertension with a PA pressure of 74. ASSESSMENT/PLAN: 1. Hypertension. The patient is on Coreg 25 mg daily that was switched to 25 mg b.i.d. We will discontinue the labetalol. The patient is also on Procardia XL 90 mg daily as well as Imdur 60 mg daily. Discontinue amlodipine as already the patient is on Procardia XL. Continue on p.r.n. intravenous hydralazine. 2. Hyperlipidemia, on Lipitor. 3. End-stage renal disease, on hemodialysis. 4. Anemia. Further evaluation by Dr. Daniels. 5. Pulmonary hypertension. Thank you very much for allowing me to participate in the care of this patient. Please do not hesitate to contact me for any questions regarding my evaluation. Zev Gatica M.D. DR: AYDIN JOB#: [id number] CC:
[2019-06-23] VITALS: BP 143/66
[2019-06-23 04:00] VITALS: BP 152/71
--- NOTE | 2019-06-23 05:08 | NUR ---
NURSE NOTES: Called to confirm PNA and Flu vaccine dates; Pt refused both on 06/09/19 stephanie Paredes
[2019-06-23] MEDS: Levemir Flexpen SUBQ SCH (05:30)
[2019-06-23] MEDS: Levothyroxine 25mcg tab ORAL SCH (05:30)
[2019-06-23] MEDS: NovoLOG Insulin Flexpen SUBQ SCH ×4 (05:31→21:22)
--- NOTE | 2019-06-23 06:00 | History and Physical Report ---
DATE OF ADMISSION: 06/21/2019 HISTORY OF PRESENT ILLNESS: The patient comes with generalized weakness, dialysis patient. The patient has also low hemoglobin. Images show pleural effusion and pericardial effusion. Also, [facility]. The patient has also had chest pain and shortness of breath as well. The patient is on dialysis, need to also rule out fluid overload. Denies orthopnea. Denies nausea, vomiting, or diarrhea. No fever or chills. Also feels dizzy. PAST MEDICAL HISTORY: Basically significant for end-stage renal disease on hemodialysis, hyperlipidemia, hypertension, constipation, neuropathy, NIDDM, hypothyroidism, asthma, GERD, history of GI bleed, and history of vertigo. PAST SURGICAL HISTORY: Related to dialysis left arm fistula and . ALLERGIES: No known allergies. MEDICATIONS: Aspirin, Norvasc, Lipitor, Coreg, Zetia, insulin Levemir, labetalol, Levoxyl, montelukast, and omeprazole. FAMILY HISTORY: Does have history of hypertension and diabetes. SOCIAL HISTORY: Denies history of smoking, alcohol, or illicit drugs. Comes from a [facility]. REVIEW OF SYSTEMS: HEENT: Denies headaches. RESPIRATORY: Reports shortness of breath. Occasional cough. CARDIOVASCULAR: Reports chest pain a couple of days. GASTROINTESTINAL: Denies nausea, vomiting, or diarrhea. Does have heartburn. EXTREMITIES: Denies pain in lower extremity. CENTRAL NERVOUS SYSTEM: Denies change in vision or speech pattern. Feels weak and dizzy. PHYSICAL EXAMINATION: VITAL SIGNS: Temperature is 98, pulse is 61, and blood pressure is 176/63. HEENT: PERRLA. NECK: Supple. CHEST: Clear to auscultation. CARDIOVASCULAR: Regular rate and rhythm. ABDOMEN: Soft and nontender. EXTREMITIES: No edema. There is a positive bruit on the left shunt. NEUROLOGIC: She has generalized weakness. LABORATORY DATA: WBC of 3.8, hemoglobin 7.8, and platelets 313,000. Sodium 133, potassium 4.6, BUN of 28, creatinine 5.3, and glucose of 188. Troponin of 0.013. ASSESSMENT AND PLAN: 1. Pleural effusion. 2. Chest pain and shortness of breath. 3. . 4. Rule out pericardial effusion. 5. Rule out acute coronary syndrome. 6. Weakness. 7. Dizziness. 8. End-stage renal disease, on hemodialysis. I have asked Dr. Gatica, Dr. Falk, Dr. Daniels, and Dr. Herbert to see the patient to help with the management of the above-mentioned diagnosis as well as treatment as well as a CT abdominal and labs and imaging symptoms. Makenna Daniel M.D. DR: MERRILL JOB#: [id number] CC:
[2019-06-23] MEDS ORDERED: Levemir Flexpen SUBQ SCH (06:30)
--- NOTE | 2019-06-23 06:58 | NUR ---
HAND-OFF: Report given to SIDNEY Otto. No signs of respiratory or cardiac distress noted. Patient remains resting in bed.
[2019-06-23 06:59] LABS: BASOPHILS % (AUTO) 1.7 % (0.0-2.0); EOSINOPHILS % (AUTO) 4.1 % (0.0-3.0); HEMATOCRIT 28.4 % (37.0-47.0); HEMOGLOBIN 9.3 G/DL (12.0-16.0); LYMPHOCYTES % (AUTO) 15.3 % (20.0-45.0); MEAN CORPUSCULAR VOLUME 93 FL (80-99); MONOCYTES % (AUTO) 9.4 % (1.0-10.0); NEUTROPHILS % (AUTO) 69.6 % (45.0-75.0); PLATELET COUNT 220 K/UL (150-450); RED BLOOD COUNT 3.04 M/UL (4.20-5.40); RED CELL DISTRIBUTION WIDTH 15.2 % (11.6-14.8); WHITE BLOOD COUNT 4.3 K/UL (4.8-10.8)
--- NOTE | 2019-06-23 07:00 | NUR ---
NURSE NOTES: Received report from Liza/RN, Patient is on 2L nasal canula no distress/SOB noted at this time. AAO x 4, Able to make needs known. Denies pain at this time. IV site on right hand, patent, no bleeding or infiltration noted. Bed in low position and locked, Bed alarm engaged, side rails up x2. Call light within reach, Encouraged to use call light when needed. Will continue plan of care.
[2019-06-23 07:19] LABS: ALANINE AMINOTRANSFERASE 11 U/L (12-78); ALBUMIN 3.4 G/DL (3.4-5.0); ALBUMIN/GLOBULIN RATIO 0.9 (1.0-2.7); ALKALINE PHOSPHATASE 102 U/L (46-116); ANION GAP 6 mmol/L (5-15); ASPARTATE AMINO TRANSFERASE 13 U/L (15-37); BILIRUBIN,TOTAL 0.6 MG/DL (0.2-1.0); BLOOD UREA NITROGEN 28 mg/dL (7-18); CALCIUM 8.2 MG/DL (8.5-10.1); CARBON DIOXIDE 30 MMOL/L (21-32); CHLORIDE 102 MMOL/L (98-107); CREATININE 4.8 MG/DL (0.55-1.30); POTASSIUM 3.9 MMOL/L (3.5-5.1); SODIUM 138 MMOL/L (136-145)
[2019-06-23 07:28] LABS: PHOSPHORUS 2.8 MG/DL (2.5-4.9)
[2019-06-23 08:00] VITALS: BP 183/73
--- NOTE | 2019-06-23 08:16 | NUR ---
CASE MANAGEMENT: INITIAL REVIEW 69 YR OLD FEMALE BIBA FROM [facility] CC: GENERALIZED WEAKNESS PMH: PULMONARY EDEMA;CDK; HTN; DM SI:EPISODE OF GENERALIZED WEAKNESS 98.0 63 18 101/48 94% ON RA H/H 7.8/22.9 RBC 2.53 WBC 3.8 BUN 28 CREAT 5.3 BG 188 CA+ 7.5 BNP [id number] NA+ 133 IS: IVF NS BOLUS X1 CT ABD PEL CXRAY : 2E TELE UNIT PLAN: GI CONSULT NEPHRO CONSULT CT ABD/PEL MILD PERICARDIAL EFFUSION AND PLEURAL EFFFUSION CASE MANAGEMENT: REVIEW 06/22/19 SI:ESRD ON HD. 98.1 68 16 145/64 99% ON 2L NC H/H 9.3/28.4 RBC 3.04 WBC 4.1 BUN 33 CREAT 5.7 BG 123 CA+ 7.2 BNP>[id number] FERR 1425 IS: IV HYDRALAZINE Q4/PRN NOVOLOG SQ AC&HS LEVEMIR SQ Q24 HR GABAPENTIN PO Q8HR HYDRALZINE PO BID PHOSLO PO TID SINGULAIR PO Q PM ZETIA PO QD : 2E TELE UNIT CT ABD/PEL MILD PERICARDIAL EFFUSION AND PLEURAL EFFFUSION
[2019-06-23] MEDS: Docusate 100mg cap ORAL SCH ×3 (09:00→17:47)
[2019-06-23] MEDS: Pantoprazole Inj IVP SCH (09:38)
[2019-06-23] MEDS: Imdur 30mg tab ORAL SCH (09:38)
[2019-06-23] MEDS: Nephrovite tab (Rena-Vite) ORAL SCH (09:39)
[2019-06-23] MEDS: HydrALAZINE 50mg tab ORAL SCH ×3 (09:39→21:20)
[2019-06-23] MEDS: Calcium Acetate 667mg Tab ORAL SCH ×3 (09:39→17:43)
--- NOTE | 2019-06-23 10:13 | Cardiac Electrophysiology PN ---
Assessment/Plan Assessment/Plan 1. Hypertension. On Norvasc 10, Imdur 60 mg daily and increase Hydralazine to 100 bid Also on HD 2. Hyperlipidemia, on Lipitor. 3. End-stage renal disease, on hemodialysis. 4. Anemia. Further evaluation by Dr. Daniels. 5. Pulmonary hypertension. GER RN Subjective Subjective Alert in NAD. No CP or SOB. BP running in 180s Objective Last 24 Hour Vital Signs Date Time Temp Pulse Resp B/P (MAP) Pulse Ox O2 Delivery O2 Flow Rate FiO2 06/23/19 09:39 183/73 06/23/19 09:38 73 183/73 06/23/19 09:38 183/73 06/23/19 04:00 97.4 72 20 152/71 (98) 96 06/23/19 03:29 67 06/23/19 00:00 97.0 66 18 143/66 (91) 98 06/22/19 23:24 73 06/22/19 21:00 Nasal Cannula 2.0 06/22/19 20:02 95 Nasal Cannula 2.0 28 06/22/19 20:00 73 06/22/19 20:00 96.8 62 18 134/82 (99) 95 06/22/19 17:11 159/60 06/22/19 16:00 97.9 70 15 159/60 (93) 100 06/22/19 16:00 73 06/22/19 13:13 179/99 06/22/19 12:00 98.0 61 16 176/63 (100) 98 06/22/19 12:00 64 Intake and Output 06/22/19 06/23/19 19:00 07:00 Intake Total 740 ml Output Total 2000 ml Balance -2000 ml 740 ml Intake Oral 740 ml Output Hemodialysis UF 2000 ml # Voids 2 # Bowel Movements 1 2 Laboratory Tests Test 06/23/19 06:08 White Blood Count 4.3 K/UL (4.8-10.8) L Red Blood Count 3.04 M/UL (4.20-5.40) L Hemoglobin 9.3 G/DL (12.0-16.0) L Hematocrit 28.4 % (37.0-47.0) L Mean Corpuscular Volume 93 FL (80-99) Mean Corpuscular Hemoglobin 30.6 PG (27.0-31.0) Mean Corpuscular Hemoglobin Concent 32.8 G/DL (32.0-36.0) Red Cell Distribution Width 15.2 % (11.6-14.8) H Platelet Count 220 K/UL (150-450) Mean Platelet Volume 5.9 FL (6.5-10.1) L Neutrophils (%) (Auto) 69.6 % (45.0-75.0) Lymphocytes (%) (Auto) 15.3 % (20.0-45.0) L Monocytes (%) (Auto) 9.4 % (1.0-10.0) Eosinophils (%) (Auto) 4.1 % (0.0-3.0) H Basophils (%) (Auto) 1.7 % (0.0-2.0) Sodium Level 138 MMOL/L (136-145) Potassium Level 3.9 MMOL/L (3.5-5.1) Chloride Level 102 MMOL/L (98-107) Carbon Dioxide Level 30 MMOL/L (21-32) Anion Gap 6 mmol/L (5-15) Blood Urea Nitrogen 28 mg/dL (7-18) H Creatinine 4.8 MG/DL (0.55-1.30) H Estimat Glomerular Filtration Rate 9.0 mL/min (>60) Glucose Level 121 MG/DL (74-106) H Calcium Level 8.2 MG/DL (8.5-10.1) L Phosphorus Level 2.8 MG/DL (2.5-4.9) Total Bilirubin 0.6 MG/DL (0.2-1.0) Aspartate Amino Transf (AST/SGOT) 13 U/L (15-37) L Alanine Aminotransferase (ALT/SGPT) 11 U/L (12-78) L Alkaline Phosphatase 102 U/L (46-116) C-Reactive Protein, Quantitative 2.8 mg/dL (0.00-0.90) H Pro-B-Type Natriuretic Peptide > 33053 pg/mL (0-125) H Total Protein 7.1 G/DL (6.4-8.2) Albumin 3.4 G/DL (3.4-5.0) Globulin 3.7 g/dL Albumin/Globulin Ratio 0.9 (1.0-2.7) L Objective HEAD AND NECK: No JVD or carotid bruits. LUNGS: Decreased breath sounds. CARDIOVASCULAR: Regular S1 and S2 with no gallops. A 2/6 systolic murmur. ABDOMEN: Soft. EXTREMITIES: No pitting edema. Zev Gatica MD Jun 23, 2019 10:13
[2019-06-23 12:00] VITALS: BP 181/70
--- NOTE | 2019-06-23 12:27 | Nephrology Progress Note ---
Assessment/Plan Problem List: (1) ESRD (end stage renal disease) (2) Hypertensive kidney disease (3) Anemia in chronic kidney disease (CKD) (4) Episode of generalized weakness Assessment h/o GI bleed present with melena, worsening Anemia ESRD M W Fr h/o Pulm Edema DM HTN Anemia B12 and Iron def CAD . Plan HD as needed, schedule in am 06/24 Transfused BP and BS check adjust BP meds Previously 2D Echo Ej Fx 50 % PACO: Hepatosplenomegaly. Question of medical renal disease. Small nonobstructive stone in the left kidney suspected. Cholelithiasis Subjective ROS Limited/Unobtainable: No Constitutional: Reports: malaise Objective Objective Last 24 Hour Vital Signs Date Time Temp Pulse Resp B/P (MAP) Pulse Ox O2 Delivery O2 Flow Rate FiO2 06/23/19 11:34 96 Nasal Cannula 2.0 28 06/23/19 09:39 183/73 06/23/19 09:38 73 183/73 06/23/19 09:38 183/73 06/23/19 09:00 Nasal Cannula 2.0 06/23/19 08:00 76 06/23/19 08:00 98.1 73 18 183/73 (109) 93 06/23/19 04:00 97.4 72 20 152/71 (98) 96 06/23/19 03:29 67 06/23/19 00:00 97.0 66 18 143/66 (91) 98 06/22/19 23:24 73 06/22/19 21:00 Nasal Cannula 2.0 06/22/19 20:02 95 Nasal Cannula 2.0 28 06/22/19 20:00 73 06/22/19 20:00 96.8 62 18 134/82 (99) 95 06/22/19 17:11 159/60 06/22/19 16:00 97.9 70 15 159/60 (93) 100 06/22/19 16:00 73 06/22/19 13:13 179/99 Intake and Output 06/22/19 06/23/19 19:00 07:00 Intake Total 740 ml Output Total 2000 ml Balance -2000 ml 740 ml Intake Oral 740 ml Output Hemodialysis UF 2000 ml # Voids 2 # Bowel Movements 1 2 Laboratory Tests 06/23/19 06:08: White Blood Count 4.3L, Red Blood Count 3.04L, Hemoglobin 9.3L, Hematocrit 28.4L , Mean Corpuscular Volume 93, Mean Corpuscular Hemoglobin 30.6, Mean Corpuscular Hemoglobin Concent 32.8, Red Cell Distribution Width 15.2H, Platelet Count 220, Mean Platelet Volume 5.9L, Neutrophils (%) (Auto) 69.6, Lymphocytes (%) (Auto) 15.3L, Monocytes (%) (Auto) 9.4, Eosinophils (%) (Auto) 4.1H, Basophils (%) (Auto) 1.7, Sodium Level 138, Potassium Level 3.9, Chloride Level 102, Carbon Dioxide Level 30, Anion Gap 6, Blood Urea Nitrogen 28H, Creatinine 4.8H, Estimat Glomerular Filtration Rate 9.0, Glucose Level 121H, Calcium Level 8.2L, Phosphorus Level 2.8, Total Bilirubin 0.6, Aspartate Amino Transf (AST/SGOT) 13L, Alanine Aminotransferase (ALT/SGPT) 11L, Alkaline Phosphatase 102, C-Reactive Protein, Quantitative 2.8H, Pro-B-Type Natriuretic Peptide > 28088J, Total Protein 7.1, Albumin 3.4, Globulin 3.7, Albumin/ Globulin Ratio 0.9L Height (Feet): 5 Height (Inches): 0.00 Weight (Pounds): 160 General Appearance: no apparent distress Cardiovascular: normal rate Respiratory/Chest: decreased breath sounds Abdomen: soft Francis Falk MD Jun 23, 2019 12:27
--- NOTE | 2019-06-23 12:55 | NUR ---
NURSE NOTES: Made appointment with [facility] [phone] for HD tomorrow
--- NOTE | 2019-06-23 13:36 | Hematology/Onc Progress Note ---
Assessment/Plan Assessment/Plan Assessment/Plan 1. Anemia due to underlying chronic disease. Have reviewed prior workup, ferritin is >1000, though percent saturation Tsat <30, but not recommended for further iron --> Continue to closely monitor. --> Transfuse if hgb <7 --> if ferritin <500, give iron suppl --> give epogen, has been started 3x a week --> as per renal --> monitor for gi bleed, gi consulted --> hgb trend 7.8 2. Leukopenia likely reactive process v infection v from meds --> hepatitis and hiv prior negative --> neutropenic precautions if ANC <1500 --> trending stable --> imaging reviewed and no hsm / cirrhosis noted --> wbc 2.7-->3.4 --> ANC goal >1500 3. End-stage renal disease, on hemodialysis three times a week. --> renal consulted --> continue hd 4. History of coronary artery disease. --> cards reviewed --> diuresis prn 5. History of anemia due to low B12, low iron --> b12 is currently within normal limits --> reobtain q6mo 6. Dizziness and unsteady gait 7. DVt ppsx with SCDs Greatly appreciate consultation and Dw RN am. Subjective Constitutional: Denies: no symptoms, chills, fever, malaise, weakness, other HEENT: Denies: no symptoms, eye pain, blurred vision, tearing, double vision, ear pain, ear discharge, nose pain, nose congestion, throat pain, throat swelling, mouth pain, mouth swelling, other Cardiovascular: Denies: no symptoms, chest pain, edema, irregular heart rate, lightheadedness, palpitations, syncope, other Respiratory: Denies: no symptoms, cough, shortness of breath, SOB with excertion, SOB at rest, sputum, wheezing, other Gastrointestinal/Abdominal: Denies: no symptoms, abdomen distended, abdominal pain, black stools, tarry stools, blood in stool, constipated, diarrhea, difficulty swallowing, nausea, poor appetite, poor fluid intake, rectal bleeding , vomiting, other Genitourinary: Denies: no symptoms, burning, discharge, frequency, flank pain, hematuria, incontinence, pain, urgency, other Neurologic/Psychiatric: Denies: no symptoms, anxiety, depressed, emotional problems, headache, numbness, paresthesia, pre-existing deficit, seizure, tingling, tremors, weakness, other Endocrine: Denies: no symptoms, excessive sweating, flushing, intolerance to cold, intolerance to heat, increased hunger, increased thirst, increased urine, unexplained weight gain, unexplained weight loss, other Hematologic/Lymphatic: Denies: no symptoms, anemia, easy bleeding, easy bruising, adenopathy, other Allergies: Coded Allergies: No Known Allergies (Unverified , 05/12/17) Subjective 06/23: on anti-htn as per Dr. Gatica, no bleeding, no f/c, hgb better Objective Objective Current Medications Medications (Trade) Dose Ordered Sig/Toya Route PRN Reason Start Time Stop Time Status Last Admin Dose Admin Acetaminophen (Tylenol) 650 mg Q6H PRN ORAL Mild Pain/Temp > 100.5 06/21/19 22:00 07/21/19 21:59 Albuterol/ Ipratropium (Albuterol/ Ipratropium) 3 ml Q6HR PRN HHN Shortness of Breath 06/21/19 22:00 06/26/19 21:59 Amlodipine Besylate (Norvasc) 10 mg DAILY ORAL 06/22/19 09:00 07/22/19 08:59 06/23/19 09:38 Atorvastatin Calcium (Lipitor) 10 mg BEDTIME ORAL 06/22/19 21:00 07/22/19 20:59 06/22/19 21:00 Calcium Acetate (Phoslo) 1,334 mg TID ORAL 06/22/19 09:00 07/22/19 08:59 06/23/19 13:09 Dextrose (Dextrose 50%) 25 ml Q30M PRN IV Hypoglycemia 06/21/19 21:45 07/21/19 21:44 Dextrose (Dextrose 50%) 50 ml Q30M PRN IV Hypoglycemia 06/21/19 21:45 07/21/19 21:44 Docusate Sodium (Colace) 100 mg THREE TIMES A DAY ORAL 06/22/19 09:00 07/22/19 08:59 06/22/19 17:10 EZETIMIBE (Zetia) 10 mg DAILY ORAL 06/22/19 09:00 07/22/19 08:59 06/23/19 09:39 Gabapentin (Neurontin) 100 mg Q8HR ORAL 06/21/19 22:00 07/21/19 21:59 06/23/19 13:09 Hydralazine HCl (Apresoline) 10 mg Q4H PRN IV bp over 160 syst 06/21/19 19:30 07/21/19 19:29 06/22/19 13:13 Hydralazine HCl (Apresoline) 50 mg Q8HR ORAL 06/23/19 14:00 07/22/19 17:59 06/23/19 13:09 Insulin Aspart (NovoLOG) BEFORE MEALS AND HS SUBQ 06/22/19 06:30 07/22/19 06:29 06/23/19 05:31 Insulin Detemir (Levemir) 20 units Q24H SUBQ 06/23/19 06:30 07/23/19 06:29 06/23/19 05:30 Isosorbide Mononitrate (Imdur) 60 mg DAILY ORAL 06/22/19 09:00 07/22/19 08:59 06/23/19 09:38 Levothyroxine Sodium (Synthroid) 25 mcg DAILY@0630 ORAL 06/22/19 06:30 07/22/19 06:29 06/23/19 05:30 Levothyroxine Sodium (Synthroid) 112 mcg ACBREAKFAST ORAL 06/22/19 06:30 07/22/19 06:29 06/23/19 05:30 Liothyronine Sodium (Cytomel) 5 mcg DAILY ORAL 06/24/19 09:00 07/24/19 08:59 Montelukast Sodium (Singulair) 10 mg QPM ORAL 06/22/19 16:30 07/22/19 16:29 06/22/19 17:10 Ondansetron HCl (Zofran) 4 mg Q6H PRN IVP Nausea & Vomiting 06/21/19 21:57 07/21/19 21:56 Pantoprazole (Protonix) 40 mg EVERY 12 HOURS ORAL 06/23/19 21:00 07/23/19 20:59 Vitamin B Complex/ Vit C/Folic Acid (Nephrovite) 1 tab DAILY ORAL 06/22/19 09:00 07/22/19 08:59 06/23/19 09:39 Last 24 Hour Vital Signs Date Time Temp Pulse Resp B/P (MAP) Pulse Ox O2 Delivery O2 Flow Rate FiO2 06/23/19 13:09 181/70 06/23/19 12:00 66 06/23/19 12:00 98.2 75 16 181/70 (107) 100 06/23/19 11:34 96 Nasal Cannula 2.0 28 06/23/19 09:39 183/73 06/23/19 09:38 73 183/73 06/23/19 09:38 183/73 06/23/19 09:00 Nasal Cannula 2.0 06/23/19 08:00 76 06/23/19 08:00 98.1 73 18 183/73 (109) 93 06/23/19 04:00 97.4 72 20 152/71 (98) 96 06/23/19 03:29 67 06/23/19 00:00 97.0 66 18 143/66 (91) 98 06/22/19 23:24 73 06/22/19 21:00 Nasal Cannula 2.0 06/22/19 20:02 95 Nasal Cannula 2.0 28 06/22/19 20:00 73 06/22/19 20:00 96.8 62 18 134/82 (99) 95 06/22/19 17:11 159/60 06/22/19 16:00 97.9 70 15 159/60 (93) 100 06/22/19 16:00 73 06/22/19 13:13 179/99 06/22/19 12:00 98.0 61 16 176/63 (100) 98 06/22/19 12:00 64 06/22/19 09:18 145/64 06/22/19 09:00 68 145/64 06/22/19 09:00 68 145/64 06/22/19 09:00 68 145/64 06/22/19 09:00 68 145/64 06/22/19 09:00 Nasal Cannula 2.0 06/22/19 08:00 70 06/22/19 08:00 98.1 68 16 145/64 (91) 99 06/22/19 04:00 98.6 68 18 154/56 (88) 100 06/22/19 04:00 58 06/22/19 01:37 Nasal Cannula 2.0 06/22/19 00:00 68 06/21/19 20:08 97.9 64 21 127/55 (79) 95 06/21/19 20:08 64 06/21/19 19:43 62 14 130/116 96 Room Air 06/21/19 16:34 63 18 Room Air 06/21/19 16:34 98.1 62 18 112/67 94 Room Air 06/21/19 16:22 98.1 63 18 101/48 (65) 94 Room Air Intake and Output 06/22/19 06/23/19 19:00 07:00 Intake Total 740 ml Output Total 2000 ml Balance -2000 ml 740 ml Intake Oral 740 ml Output Hemodialysis UF 2000 ml # Voids 2 # Bowel Movements 1 2 Labs Test 06/21/19 10:30 06/21/19 17:10 06/22/19 06:00 06/22/19 06:01 Stool Occult Blood Negative (NEGATIVE) White Blood Count 3.8 K/UL (4.8-10.8) 4.1 K/UL (4.8-10.8) Red Blood Count 2.53 M/UL (4.20-5.40) 2.51 M/UL (4.20-5.40) Hemoglobin 7.8 G/DL (12.0-16.0) 7.8 G/DL (12.0-16.0) Hematocrit 22.9 % (37.0-47.0) 23.6 % (37.0-47.0) Mean Corpuscular Volume 91 FL (80-99) 94 FL (80-99) Mean Corpuscular Hemoglobin 31.0 PG (27.0-31.0) 31.2 PG (27.0-31.0) Mean Corpuscular Hemoglobin Concent 34.2 G/DL (32.0-36.0) 33.2 G/DL (32.0-36.0) Red Cell Distribution Width 14.0 % (11.6-14.8) 15.0 % (11.6-14.8) Platelet Count 213 K/UL (150-450) 221 K/UL (150-450) Mean Platelet Volume 6.2 FL (6.5-10.1) 5.6 FL (6.5-10.1) Neutrophils (%) (Auto) % (45.0-75.0) % (45.0-75.0) Lymphocytes (%) (Auto) % (20.0-45.0) % (20.0-45.0) Monocytes (%) (Auto) % (1.0-10.0) % (1.0-10.0) Eosinophils (%) (Auto) % (0.0-3.0) % (0.0-3.0) Basophils (%) (Auto) % (0.0-2.0) % (0.0-2.0) Differential Total Cells Counted 100 100 Neutrophils % (Manual) 82 % (45-75) 75 % (45-75) Lymphocytes % (Manual) 12 % (20-45) 14 % (20-45) Monocytes % (Manual) 6 % (1-10) 8 % (1-10) Eosinophils % (Manual) 0 % (0-3) 3 % (0-3) Basophils % (Manual) 0 % (0-2) 0 % (0-2) Band Neutrophils 0 % (0-8) 0 % (0-8) Platelet Estimate Adequate Adequate Platelet Morphology Normal Normal Sodium Level 133 MMOL/L (136-145) 138 MMOL/L (136-145) Potassium Level 4.6 MMOL/L (3.5-5.1) 3.8 MMOL/L (3.5-5.1) Chloride Level 93 MMOL/L (98-107) 97 MMOL/L (98-107) Carbon Dioxide Level 36 MMOL/L (21-32) 37 MMOL/L (21-32) Anion Gap 4 mmol/L (5-15) 4 mmol/L (5-15) Blood Urea Nitrogen 28 mg/dL (7-18) 33 mg/dL (7-18) Creatinine 5.3 MG/DL (0.55-1.30) 5.7 MG/DL (0.55-1.30) Estimat Glomerular Filtration Rate 8.0 mL/min (>60) 7.3 mL/min (>60) Glucose Level 188 MG/DL (74-106) 123 MG/DL (74-106) Calcium Level 7.5 MG/DL (8.5-10.1) 7.2 MG/DL (8.5-10.1) Phosphorus Level 2.8 MG/DL (2.5-4.9) 3.1 MG/DL (2.5-4.9) Magnesium Level 2.3 MG/DL (1.8-2.4) 2.4 MG/DL (1.8-2.4) Total Bilirubin 0.4 MG/DL (0.2-1.0) 0.4 MG/DL (0.2-1.0) Aspartate Amino Transf (AST/SGOT) 15 U/L (15-37) 12 U/L (15-37) Alanine Aminotransferase (ALT/SGPT) 11 U/L (12-78) 12 U/L (12-78) Alkaline Phosphatase 89 U/L (46-116) 93 U/L (46-116) Troponin I 0.013 ng/mL (0.000-0.056) 0.019 ng/mL (0.000-0.056) Pro-B-Type Natriuretic Peptide 16381 pg/mL (0-125) > 36767 pg/mL (0-125) Total Protein 6.3 G/DL (6.4-8.2) 6.6 G/DL (6.4-8.2) Albumin 3.2 G/DL (3.4-5.0) 3.2 G/DL (3.4-5.0) Globulin 3.1 g/dL 3.4 g/dL Albumin/Globulin Ratio 1.0 (1.0-2.7) 0.9 (1.0-2.7) Lipase 62 U/L (73-393) Free Thyroxine 1.20 NG/DL (0.76-1.46) Free Triiodothyronine 1.7 pg/mL (2.3-4.2) Uric Acid 5.4 MG/DL (2.6-7.2) Iron Level 43 ug/dL (50-175) Total Iron Binding Capacity 196 ug/dL (250-450) Percent Iron Saturation 22 % (15-50) Unsaturated Iron Binding 153 ug/dL (112-346) Ferritin 1425 NG/ML (8-388) C-Reactive Protein, Quantitative 3.1 mg/dL (0.00-0.90) Vitamin B12 Level 447 PG/ML (193-986) Folate 14.7 NG/ML (8.6-58.9) Thyroid Stimulating Hormone (TSH) 1.444 uiU/mL (0.358-3.740) Test 06/23/19 06:08 White Blood Count 4.3 K/UL (4.8-10.8) Red Blood Count 3.04 M/UL (4.20-5.40) Hemoglobin 9.3 G/DL (12.0-16.0) Hematocrit 28.4 % (37.0-47.0) Mean Corpuscular Volume 93 FL (80-99) Mean Corpuscular Hemoglobin 30.6 PG (27.0-31.0) Mean Corpuscular Hemoglobin Concent 32.8 G/DL (32.0-36.0) Red Cell Distribution Width 15.2 % (11.6-14.8) Platelet Count 220 K/UL (150-450) Mean Platelet Volume 5.9 FL (6.5-10.1) Neutrophils (%) (Auto) 69.6 % (45.0-75.0) Lymphocytes (%) (Auto) 15.3 % (20.0-45.0) Monocytes (%) (Auto) 9.4 % (1.0-10.0) Eosinophils (%) (Auto) 4.1 % (0.0-3.0) Basophils (%) (Auto) 1.7 % (0.0-2.0) Sodium Level 138 MMOL/L (136-145) Potassium Level 3.9 MMOL/L (3.5-5.1) Chloride Level 102 MMOL/L (98-107) Carbon Dioxide Level 30 MMOL/L (21-32) Anion Gap 6 mmol/L (5-15) Blood Urea Nitrogen 28 mg/dL (7-18) Creatinine 4.8 MG/DL (0.55-1.30) Estimat Glomerular Filtration Rate 9.0 mL/min (>60) Glucose Level 121 MG/DL (74-106) Calcium Level 8.2 MG/DL (8.5-10.1) Phosphorus Level 2.8 MG/DL (2.5-4.9) Total Bilirubin 0.6 MG/DL (0.2-1.0) Aspartate Amino Transf (AST/SGOT) 13 U/L (15-37) Alanine Aminotransferase (ALT/SGPT) 11 U/L (12-78) Alkaline Phosphatase 102 U/L (46-116) C-Reactive Protein, Quantitative 2.8 mg/dL (0.00-0.90) Pro-B-Type Natriuretic Peptide > 97052 pg/mL (0-125) Total Protein 7.1 G/DL (6.4-8.2) Albumin 3.4 G/DL (3.4-5.0) Globulin 3.7 g/dL Albumin/Globulin Ratio 0.9 (1.0-2.7) Height (Feet): 5 Height (Inches): 0.00 Weight (Pounds): 160 Objective PHYSICAL EXAMINATION: VITAL SIGNS: Reviewed. GENERAL: No distress. PULMONARY: Decreased breath sounds. ++ nc CARDIOVASCULAR: Regular rate. No S3 or S4. ABDOMEN: Soft, nontender, and nondistended. EXTREMITIES: No cyanosis, swelling, or edema. ++ Left AVS Carl Daniels MD Jun 23, 2019 13:36
[2019-06-23 16:00] VITALS: BP 159/68
--- NOTE | 2019-06-23 16:45 | Cardiology Report ---
APPROVED REPORT EXAM: Two-dimensional and M-mode echocardiogram with Doppler and color Doppler. INDICATION OTHER M-Mode DIMENSIONS IVSd1.7 (0.7-1.1cm)Left Atrium (MM)5.3 (1.6-4.0cm) LVDd5.7 (3.5-5.6cm)Aortic Root3.2 (2.0-3.7cm) PWd1.7 (0.7-1.1cm)Aortic Cusp Exc.1.4 (1.5-2.0cm) LVDs4.2 (2.5-4.0cm) PWs1.9 cm Normal left ventricular systolic function and wall motion. Mild LV enlargement. Left ventricular ejection fraction estimated to be 50-55 %. Mod-severe left ventricular hypertrophy. Small posterior pericardial effusion. Moderate left atrial enlargement. Mioderate right atrial and ventricular enlargement. Aortic valve calcification with decreased cusp excursion c/w aortic stenosis. Thickened mitral valve leaflets with normal excursion. Mitral annulus and aortic root calcification. Normal pulmonic valve structure. Normal tricuspid valve structure. IVC dilated at 2.4 cm without physiologic collapse suggestive of increased RA pressure. A color flow and spectral Doppler study was performed and revealed: Trace aortic regurgitation. Peak aortic valve gradient of 37 mmHg and a mean of 19 mmHg. Aortic valve area 1.4 cm2 calculated by continuity equation. Mild mitral regurgitation. Mitral inflow indicates normal left ventricular diastolic function. Moderate tricuspid regurgitation. Tricuspid systolic velocities suggests peak right ventricular systolic pressure of 74 mmHg consistent with severe pulmonary hypertension. Trace pulmonic regurgitation present.
--- NOTE | 2019-06-23 17:15 | Cardiology Report ---
APPROVED REPORT EKG Measurement Heart [id number] Sinus bradycardia Nonspecific ST and T wave abnormality Prolonged QT Abnormal ECG
[2019-06-23] MEDS: Montelukast 10mg tablet ORAL SCH (17:43)
--- NOTE | 2019-06-23 19:25 | NUR ---
Received report from nurse Otto. Awake and alert and in no distress.Denies c/o pain nor other discomfort. Bed at its lowest and fall precautions observed. continue with plan of care.
--- NOTE | 2019-06-23 19:34 | NUR ---
HAND-OFF: Report given to Glenn/RN, Patient is on bed, in stable condition. Endorsed plan of care.
[2019-06-23 20:00] VITALS: BP 182/74
--- NOTE | 2019-06-23 20:59 | General Progress Note ---
Assessment/Plan Problem List: (1) Hypertension ICD Codes: I10 - Essential (primary) hypertension SNOMED: 45644422 (2) Diabetic nephropathy with proteinuria ICD Codes: E11.21 - Type 2 diabetes mellitus with diabetic nephropathy SNOMED: 10295808, 089424291 (3) Renal failure ICD Codes: N19 - Unspecified kidney failure SNOMED: 83755517 (4) Black tarry stools ICD Codes: K92.1 - Melena SNOMED: 424949965 (5) ESRD (end stage renal disease) ICD Codes: N18.6 - End stage renal disease SNOMED: 24935205 (6) Hypertensive kidney disease ICD Codes: I12.9 - Hypertensive chronic kidney disease with stage 1 through stage 4 chronic kidney disease, or unspecified chronic kidney disease SNOMED: 18766146 (7) Anemia in chronic kidney disease (CKD) ICD Codes: N18.9 - Chronic kidney disease, unspecified; D63.1 - Anemia in chronic kidney disease SNOMED: 714461491 Status: progressing Assessment/Plan: afebrile nac esrd on hd anemia r/o sepsis sob resp insuff Subjective ROS Limited/Unobtainable: Yes Allergies: Coded Allergies: No Known Allergies (Unverified , 05/12/17) Objective Last 24 Hour Vital Signs Date Time Temp Pulse Resp B/P (MAP) Pulse Ox O2 Delivery O2 Flow Rate FiO2 06/23/19 20:06 95 Nasal Cannula 2.0 28 06/23/19 16:00 98.1 74 16 159/68 (98) 100 06/23/19 16:00 68 06/23/19 13:09 181/70 06/23/19 12:00 66 06/23/19 12:00 98.2 75 16 181/70 (107) 100 06/23/19 11:34 96 Nasal Cannula 2.0 28 06/23/19 09:39 183/73 06/23/19 09:38 73 183/73 06/23/19 09:38 183/73 06/23/19 09:00 Nasal Cannula 2.0 06/23/19 08:00 76 06/23/19 08:00 98.1 73 18 183/73 (109) 93 06/23/19 04:00 97.4 72 20 152/71 (98) 96 06/23/19 03:29 67 06/23/19 00:00 97.0 66 18 143/66 (91) 98 06/22/19 23:24 73 06/22/19 21:00 Nasal Cannula 2.0 Intake and Output 06/22/19 06/23/19 19:00 07:00 Intake Total 740 ml Output Total 2000 ml Balance -2000 ml 740 ml Intake Oral 740 ml Output Hemodialysis UF 2000 ml # Voids 2 # Bowel Movements 1 2 Laboratory Tests 06/23/19 06:08: White Blood Count 4.3L, Red Blood Count 3.04L, Hemoglobin 9.3L, Hematocrit 28.4L , Mean Corpuscular Volume 93, Mean Corpuscular Hemoglobin 30.6, Mean Corpuscular Hemoglobin Concent 32.8, Red Cell Distribution Width 15.2H, Platelet Count 220, Mean Platelet Volume 5.9L, Neutrophils (%) (Auto) 69.6, Lymphocytes (%) (Auto) 15.3L, Monocytes (%) (Auto) 9.4, Eosinophils (%) (Auto) 4.1H, Basophils (%) (Auto) 1.7, Sodium Level 138, Potassium Level 3.9, Chloride Level 102, Carbon Dioxide Level 30, Anion Gap 6, Blood Urea Nitrogen 28H, Creatinine 4.8H, Estimat Glomerular Filtration Rate 9.0, Glucose Level 121H, Calcium Level 8.2L, Phosphorus Level 2.8, Total Bilirubin 0.6, Aspartate Amino Transf (AST/SGOT) 13L, Alanine Aminotransferase (ALT/SGPT) 11L, Alkaline Phosphatase 102, C-Reactive Protein, Quantitative 2.8H, Pro-B-Type Natriuretic Peptide > 92463G, Total Protein 7.1, Albumin 3.4, Globulin 3.7, Albumin/ Globulin Ratio 0.9L Height (Feet): 5 Height (Inches): 0.00 Weight (Pounds): 160 Neck: supple Cardiovascular: normal rate Respiratory/Chest: lungs clear Makenna Daniel MD Jun 23, 2019 20:59
--- NOTE | 2019-06-23 21:12 | Pulmonology Progress Note ---
Assessment/Plan Assessment/Plan Pulmonary Progress Note HPI Patient is a 69 year old woman, past medical history of end-stage CKD on hemodialysis Thursday, Aortic Stenosis, Hypertension, GI bleed in the past presents with generalized weakness, generalized abdominal pain, diarrhea x1 day. Denies SOB, chest pain, no hemoptysis No new complaints, improved symptoms s/p HD and TFN, less SOB s/p HD Allergies: No Known Allergies Past Medical History: CKD, HD, Hypertension, CAD, Diabetes, HHD, Vertigo, previous GI bleed All Other Systems: negative except mentioned in HPI Physical Exam Vital Signs Noted General Appearance: well appearing, no apparent distress, alert Head: normocephalic, atraumatic Eyes: bilateral eye PERRL, bilateral eye EOMI, pale ENT: uvula midline, moist mucus membranes Neck: supple, thyroid normal, no LN Respiratory: lungs clear, no respiratory distress, no retraction, no accessory muscle use Cardiovascular: normal peripheral pulses, regular rate, rhythm, HS1, HS2 normal ,no edema, no gallop, no murmur Gastrointestinal: non tender, soft, no guarding, no rebound Musculoskeletal: normal inspection Neurologic: alert, oriented x3 Skin: no rash, warm/dry Impression: Aortic Stenosis Episode of generalized weakness CKD Anemia Diabetes HTN CAD Heart Disease Vertigo Plan: O2 PRN TFN PRN Monitor labs Protonix PPX [employer] medications HD per [facility] Cardiology following Echocardiogram CT Abdomen/Chest: Basal atelectasis versus congestion, Mild pericardial effusion Subjective ROS Limited/Unobtainable: No Allergies: Coded Allergies: No Known Allergies (Unverified , 05/12/17) Objective Last 24 Hour Vital Signs Date Time Temp Pulse Resp B/P (MAP) Pulse Ox O2 Delivery O2 Flow Rate FiO2 06/23/19 20:06 95 Nasal Cannula 2.0 28 06/23/19 16:00 98.1 74 16 159/68 (98) 100 06/23/19 16:00 68 06/23/19 13:09 181/70 06/23/19 12:00 66 06/23/19 12:00 98.2 75 16 181/70 (107) 100 06/23/19 11:34 96 Nasal Cannula 2.0 28 06/23/19 09:39 183/73 06/23/19 09:38 73 183/73 06/23/19 09:38 183/73 11/21/19 09:00 Nasal Cannula 2.0 06/23/19 08:00 76 06/23/19 08:00 98.1 73 18 183/73 (109) 93 06/23/19 04:00 97.4 72 20 152/71 (98) 96 06/23/19 03:29 67 06/23/19 00:00 97.0 66 18 143/66 (91) 98 06/22/19 23:24 73 Intake and Output 06/22/19 06/23/19 19:00 07:00 Intake Total 740 ml Output Total 2000 ml Balance -2000 ml 740 ml Intake Oral 740 ml Output Hemodialysis UF 2000 ml # Voids 2 # Bowel Movements 1 2 Laboratory Tests 06/23/19 06:08: White Blood Count 4.3L, Red Blood Count 3.04L, Hemoglobin 9.3L, Hematocrit 28.4L , Mean Corpuscular Volume 93, Mean Corpuscular Hemoglobin 30.6, Mean Corpuscular Hemoglobin Concent 32.8, Red Cell Distribution Width 15.2H, Platelet Count 220, Mean Platelet Volume 5.9L, Neutrophils (%) (Auto) 69.6, Lymphocytes (%) (Auto) 15.3L, Monocytes (%) (Auto) 9.4, Eosinophils (%) (Auto) 4.1H, Basophils (%) (Auto) 1.7, Sodium Level 138, Potassium Level 3.9, Chloride Level 102, Carbon Dioxide Level 30, Anion Gap 6, Blood Urea Nitrogen 28H, Creatinine 4.8H, Estimat Glomerular Filtration Rate 9.0, Glucose Level 121H, Calcium Level 8.2L, Phosphorus Level 2.8, Total Bilirubin 0.6, Aspartate Amino Transf (AST/SGOT) 13L, Alanine Aminotransferase (ALT/SGPT) 11L, Alkaline Phosphatase 102, C-Reactive Protein, Quantitative 2.8H, Pro-B-Type Natriuretic Peptide > [id number], Total Protein 7.1, Albumin 3.4, Globulin 3.7, Albumin/ Globulin Ratio 0.9L Current Medications Medications (Trade) Dose Ordered Sig/Toya Route PRN Reason Start Time Stop Time Status Last Admin Dose Admin Acetaminophen (Tylenol) 650 mg Q6H PRN ORAL Mild Pain/Temp > 100.5 06/21/19 22:00 07/21/19 21:59 Albuterol/ Ipratropium (Albuterol/ Ipratropium) 3 ml Q6HR PRN HHN Shortness of Breath 06/21/19 22:00 06/26/19 21:59 Amlodipine Besylate (Norvasc) 10 mg DAILY ORAL 06/22/19 09:00 07/22/19 08:59 06/23/19 09:38 Atorvastatin Calcium (Lipitor) 10 mg BEDTIME ORAL 06/22/19 21:00 07/22/19 20:59 06/22/19 21:00 Calcium Acetate (Phoslo) 1,334 mg TID ORAL 06/22/19 09:00 07/22/19 08:59 06/23/19 17:43 Dextrose (Dextrose 50%) 25 ml Q30M PRN IV Hypoglycemia 06/21/19 21:45 07/21/19 21:44 Dextrose (Dextrose 50%) 50 ml Q30M PRN IV Hypoglycemia 06/21/19 21:45 07/21/19 21:44 Docusate Sodium (Colace) 100 mg THREE TIMES A DAY ORAL 06/22/19 09:00 07/22/19 08:59 06/22/19 17:10 EZETIMIBE (Zetia) 10 mg DAILY ORAL 06/22/19 09:00 07/22/19 08:59 06/23/19 09:39 Gabapentin (Neurontin) 100 mg Q8HR ORAL 06/21/19 22:00 07/21/19 21:59 06/23/19 13:09 Hydralazine HCl (Apresoline) 10 mg Q4H PRN IV bp over 160 syst 06/21/19 19:30 07/21/19 19:29 06/22/19 13:13 Hydralazine HCl (Apresoline) 50 mg Q8HR ORAL 06/23/19 14:00 07/22/19 17:59 06/23/19 13:09 Insulin Aspart (NovoLOG) BEFORE MEALS AND HS SUBQ 06/22/19 06:30 07/22/19 06:29 06/23/19 17:45 Insulin Detemir (Levemir) 20 units Q24H SUBQ 06/23/19 06:30 07/23/19 06:29 06/23/19 05:30 Isosorbide Mononitrate (Imdur) 60 mg DAILY ORAL 06/22/19 09:00 07/22/19 08:59 06/23/19 09:38 Levothyroxine Sodium (Synthroid) 25 mcg DAILY@0630 ORAL 06/22/19 06:30 07/22/19 06:29 06/23/19 05:30 Levothyroxine Sodium (Synthroid) 112 mcg ACBREAKFAST ORAL 06/22/19 06:30 07/22/19 06:29 06/23/19 05:30 Liothyronine Sodium (Cytomel) 5 mcg DAILY ORAL 06/24/19 09:00 07/24/19 08:59 Montelukast Sodium (Singulair) 10 mg QPM ORAL 06/22/19 16:30 07/22/19 16:29 06/23/19 17:43 Ondansetron HCl (Zofran) 4 mg Q6H PRN IVP Nausea & Vomiting 06/21/19 21:57 07/21/19 21:56 Pantoprazole (Protonix) 40 mg EVERY 12 HOURS ORAL 06/23/19 21:00 07/23/19 20:59 Vitamin B Complex/ Vit C/Folic Acid (Nephrovite) 1 tab DAILY ORAL 06/22/19 09:00 07/22/19 08:59 06/23/19 09:39 Brandon Herbert MD Jun 23, 2019 21:12
[2019-06-24] VITALS (7 sets, daily range): BP systolic 148–170; BP diastolic 50–79
[2019-06-24] MEDS: HydrALAZINE 50mg tab ORAL SCH ×4 (06:04→22:26)
[2019-06-24] MEDS: Levothyroxine 25mcg tab ORAL SCH (06:05)
[2019-06-24] MEDS: NovoLOG Insulin Flexpen SUBQ SCH ×4 (06:48→21:45)
[2019-06-24] MEDS: Levemir Flexpen SUBQ SCH (06:49)
--- NOTE | 2019-06-24 07:33 | NUR ---
HAND-OFF: Report given to Brandee LITTLE. Endorsed plan of care.NAD.
--- NOTE | 2019-06-24 08:04 | NUR ---
NURSE NOTES: pt up from bed, AOx4 will have dialysis today. Pt on site monitor no signs of cardiac or respiratory distress at this time. Bed in lowest position and locked. Call light within reach. Will continue plans of care.
--- NOTE | 2019-06-24 08:09 | Hematology/Onc Progress Note ---
Assessment/Plan Assessment/Plan Assessment/Plan 1. Anemia due to underlying chronic disease. Have reviewed prior workup, ferritin is >1000, though percent saturation Tsat <30, but not recommended for further iron --> Continue to closely monitor. --> Transfuse if hgb <7 --> if ferritin <500, give iron suppl --> give epogen, has been started 3x a week --> as per renal --> monitor for gi bleed, gi consulted --> hgb trend 7.8-->9.3 2. Leukopenia likely reactive process v infection v from meds --> hepatitis and hiv prior negative --> neutropenic precautions if ANC <1500 --> trending stable --> imaging reviewed and no hsm / cirrhosis noted --> wbc 2.7-->3.4-->4 --> ANC goal >1500 3. End-stage renal disease, on hemodialysis three times a week. --> renal consulted --> continue hd 4. History of coronary artery disease. --> cards reviewed --> diuresis prn 5. History of anemia due to low B12, low iron --> b12 is currently within normal limits --> reobtain q6mo 6. Dizziness and unsteady gait 7. DVt ppsx with SCDs Greatly appreciate consultation and Dw RN am. Subjective Constitutional: Denies: no symptoms, chills, fever, malaise, weakness, other HEENT: Denies: no symptoms, eye pain, blurred vision, tearing, double vision, ear pain, ear discharge, nose pain, nose congestion, throat pain, throat swelling, mouth pain, mouth swelling, other Cardiovascular: Denies: no symptoms, chest pain, edema, irregular heart rate, lightheadedness, palpitations, syncope, other Respiratory: Denies: no symptoms, cough, shortness of breath, SOB with excertion, SOB at rest, sputum, wheezing, other Gastrointestinal/Abdominal: Denies: no symptoms, abdomen distended, abdominal pain, black stools, tarry stools, blood in stool, constipated, diarrhea, difficulty swallowing, nausea, poor appetite, poor fluid intake, rectal bleeding , vomiting, other Genitourinary: Denies: no symptoms, burning, discharge, frequency, flank pain, hematuria, incontinence, pain, urgency, other Neurologic/Psychiatric: Denies: no symptoms, anxiety, depressed, emotional problems, headache, numbness, paresthesia, pre-existing deficit, seizure, tingling, tremors, weakness, other Endocrine: Denies: no symptoms, excessive sweating, flushing, intolerance to cold, intolerance to heat, increased hunger, increased thirst, increased urine, unexplained weight gain, unexplained weight loss, other Allergies: Coded Allergies: No Known Allergies (Unverified , 05/12/17) Subjective 06/23: on anti-htn as per Dr. Gatica, no bleeding, no f/c, hgb better 06/24: no events, to undergo hd today, no bleeding Objective Objective Current Medications Medications (Trade) Dose Ordered Sig/Toya Route PRN Reason Start Time Stop Time Status Last Admin Dose Admin Acetaminophen (Tylenol) 650 mg Q6H PRN ORAL Mild Pain/Temp > 100.5 06/21/19 22:00 07/21/19 21:59 06/24/19 04:26 Albuterol/ Ipratropium (Albuterol/ Ipratropium) 3 ml Q6HR PRN HHN Shortness of Breath 06/21/19 22:00 06/26/19 21:59 Amlodipine Besylate (Norvasc) 10 mg DAILY ORAL 06/22/19 09:00 07/22/19 08:59 06/23/19 09:38 Atorvastatin Calcium (Lipitor) 10 mg BEDTIME ORAL 06/22/19 21:00 07/22/19 20:59 06/23/19 21:19 Calcium Acetate (Phoslo) 1,334 mg TID ORAL 06/22/19 09:00 07/22/19 08:59 06/23/19 17:43 Dextrose (Dextrose 50%) 25 ml Q30M PRN IV Hypoglycemia 06/21/19 21:45 07/21/19 21:44 Dextrose (Dextrose 50%) 50 ml Q30M PRN IV Hypoglycemia 06/21/19 21:45 07/21/19 21:44 Docusate Sodium (Colace) 100 mg THREE TIMES A DAY ORAL 06/22/19 09:00 07/22/19 08:59 06/22/19 17:10 EZETIMIBE (Zetia) 10 mg DAILY ORAL 06/22/19 09:00 07/22/19 08:59 06/23/19 09:39 Gabapentin (Neurontin) 100 mg Q8HR ORAL 06/21/19 22:00 07/21/19 21:59 06/24/19 06:05 Hydralazine HCl (Apresoline) 10 mg Q4H PRN IV bp over 160 syst 06/21/19 19:30 07/21/19 19:29 06/22/19 13:13 Hydralazine HCl (Apresoline) 50 mg Q8HR ORAL 06/23/19 14:00 07/22/19 17:59 06/24/19 06:04 Insulin Aspart (NovoLOG) BEFORE MEALS AND HS SUBQ 06/22/19 06:30 07/22/19 06:29 06/24/19 06:48 Insulin Detemir (Levemir) 20 units Q24H SUBQ 06/23/19 06:30 07/23/19 06:29 06/24/19 06:49 Isosorbide Mononitrate (Imdur) 60 mg DAILY ORAL 06/22/19 09:00 07/22/19 08:59 06/23/19 09:38 Levothyroxine Sodium (Synthroid) 25 mcg DAILY@0630 ORAL 06/22/19 06:30 07/22/19 06:29 06/24/19 06:05 Levothyroxine Sodium (Synthroid) 112 mcg ACBREAKFAST ORAL 06/22/19 06:30 07/22/19 06:29 06/24/19 06:05 Liothyronine Sodium (Cytomel) 5 mcg DAILY ORAL 06/24/19 09:00 07/24/19 08:59 Montelukast Sodium (Singulair) 10 mg QPM ORAL 06/22/19 16:30 07/22/19 16:29 06/23/19 17:43 Ondansetron HCl (Zofran) 4 mg Q6H PRN IVP Nausea & Vomiting 06/21/19 21:57 07/21/19 21:56 Pantoprazole (Protonix) 40 mg EVERY 12 HOURS ORAL 06/23/19 21:00 07/23/19 20:59 06/23/19 21:19 Vitamin B Complex/ Vit C/Folic Acid (Nephrovite) 1 tab DAILY ORAL 06/22/19 09:00 07/22/19 08:59 06/23/19 09:39 Last 24 Hour Vital Signs Date Time Temp Pulse Resp B/P (MAP) Pulse Ox O2 Delivery O2 Flow Rate FiO2 06/24/19 06:04 160/70 06/24/19 04:00 98.1 76 18 160/70 (100) 99 06/24/19 04:00 75 06/24/19 00:00 98.1 79 18 162/79 (106) 100 06/24/19 00:00 78 06/23/19 21:20 180/74 06/23/19 21:00 Nasal Cannula 2.0 06/23/19 20:06 95 Nasal Cannula 2.0 28 06/23/19 20:00 77 06/23/19 20:00 76 18 95 Nasal Cannula 2.0 28 06/23/19 20:00 97.5 95 18 182/74 (110) 98 06/23/19 16:00 98.1 74 16 159/68 (98) 100 06/23/19 16:00 68 06/23/19 13:09 181/70 06/23/19 12:00 66 06/23/19 12:00 98.2 75 16 181/70 (107) 100 06/23/19 11:34 96 Nasal Cannula 2.0 28 06/23/19 09:39 183/73 06/23/19 09:38 73 183/73 06/23/19 09:38 183/73 06/23/19 09:00 Nasal Cannula 2.0 06/23/19 08:00 76 06/23/19 08:00 98.1 73 18 183/73 (109) 93 06/23/19 04:00 97.4 72 20 152/71 (98) 96 06/23/19 03:29 67 06/23/19 00:00 97.0 66 18 143/66 (91) 98 06/22/19 23:24 73 06/22/19 21:00 Nasal Cannula 2.0 06/22/19 20:02 95 Nasal Cannula 2.0 28 06/22/19 20:00 73 06/22/19 20:00 96.8 62 18 134/82 (99) 95 06/22/19 17:11 159/60 06/22/19 16:00 97.9 70 15 159/60 (93) 100 11/20/19 16:00 73 06/22/19 13:13 179/99 06/22/19 12:00 98.0 61 16 176/63 (100) 98 06/22/19 12:00 64 06/22/19 09:18 145/64 06/22/19 09:00 68 145/64 06/22/19 09:00 68 145/64 06/22/19 09:00 68 145/64 06/22/19 09:00 68 145/64 06/22/19 09:00 Nasal Cannula 2.0 Intake and Output 06/23/19 06/24/19 19:00 07:00 Intake Total 390 ml 150 ml Output Total 2000 ml Balance 390 ml -1850 ml Intake Oral 390 ml 150 ml Output Hemodialysis UF 2000 ml # Voids 2 3 # Bowel Movements 1 2 Labs Test 06/21/19 10:30 06/21/19 17:10 06/22/19 06:00 06/22/19 06:01 Stool Occult Blood Negative (NEGATIVE) White Blood Count 3.8 K/UL (4.8-10.8) 4.1 K/UL (4.8-10.8) Red Blood Count 2.53 M/UL (4.20-5.40) 2.51 M/UL (4.20-5.40) Hemoglobin 7.8 G/DL (12.0-16.0) 7.8 G/DL (12.0-16.0) Hematocrit 22.9 % (37.0-47.0) 23.6 % (37.0-47.0) Mean Corpuscular Volume 91 FL (80-99) 94 FL (80-99) Mean Corpuscular Hemoglobin 31.0 PG (27.0-31.0) 31.2 PG (27.0-31.0) Mean Corpuscular Hemoglobin Concent 34.2 G/DL (32.0-36.0) 33.2 G/DL (32.0-36.0) Red Cell Distribution Width 14.0 % (11.6-14.8) 15.0 % (11.6-14.8) Platelet Count 213 K/UL (150-450) 221 K/UL (150-450) Mean Platelet Volume 6.2 FL (6.5-10.1) 5.6 FL (6.5-10.1) Neutrophils (%) (Auto) % (45.0-75.0) % (45.0-75.0) Lymphocytes (%) (Auto) % (20.0-45.0) % (20.0-45.0) Monocytes (%) (Auto) % (1.0-10.0) % (1.0-10.0) Eosinophils (%) (Auto) % (0.0-3.0) % (0.0-3.0) Basophils (%) (Auto) % (0.0-2.0) % (0.0-2.0) Differential Total Cells Counted 100 100 Neutrophils % (Manual) 82 % (45-75) 75 % (45-75) Lymphocytes % (Manual) 12 % (20-45) 14 % (20-45) Monocytes % (Manual) 6 % (1-10) 8 % (1-10) Eosinophils % (Manual) 0 % (0-3) 3 % (0-3) Basophils % (Manual) 0 % (0-2) 0 % (0-2) Band Neutrophils 0 % (0-8) 0 % (0-8) Platelet Estimate Adequate Adequate Platelet Morphology Normal Normal Sodium Level 133 MMOL/L (136-145) 138 MMOL/L (136-145) Potassium Level 4.6 MMOL/L (3.5-5.1) 3.8 MMOL/L (3.5-5.1) Chloride Level 93 MMOL/L (98-107) 97 MMOL/L (98-107) Carbon Dioxide Level 36 MMOL/L (21-32) 37 MMOL/L (21-32) Anion Gap 4 mmol/L (5-15) 4 mmol/L (5-15) Blood Urea Nitrogen 28 mg/dL (7-18) 33 mg/dL (7-18) Creatinine 5.3 MG/DL (0.55-1.30) 5.7 MG/DL (0.55-1.30) Estimat Glomerular Filtration Rate 8.0 mL/min (>60) 7.3 mL/min (>60) Glucose Level 188 MG/DL (74-106) 123 MG/DL (74-106) Calcium Level 7.5 MG/DL (8.5-10.1) 7.2 MG/DL (8.5-10.1) Phosphorus Level 2.8 MG/DL (2.5-4.9) 3.1 MG/DL (2.5-4.9) Magnesium Level 2.3 MG/DL (1.8-2.4) 2.4 MG/DL (1.8-2.4) Total Bilirubin 0.4 MG/DL (0.2-1.0) 0.4 MG/DL (0.2-1.0) Aspartate Amino Transf (AST/SGOT) 15 U/L (15-37) 12 U/L (15-37) Alanine Aminotransferase (ALT/SGPT) 11 U/L (12-78) 12 U/L (12-78) Alkaline Phosphatase 89 U/L (46-116) 93 U/L (46-116) Troponin I 0.013 ng/mL (0.000-0.056) 0.019 ng/mL (0.000-0.056) Pro-B-Type Natriuretic Peptide 30208 pg/mL (0-125) > 50322 pg/mL (0-125) Total Protein 6.3 G/DL (6.4-8.2) 6.6 G/DL (6.4-8.2) Albumin 3.2 G/DL (3.4-5.0) 3.2 G/DL (3.4-5.0) Globulin 3.1 g/dL 3.4 g/dL Albumin/Globulin Ratio 1.0 (1.0-2.7) 0.9 (1.0-2.7) Lipase 62 U/L (73-393) Free Thyroxine 1.20 NG/DL (0.76-1.46) Free Triiodothyronine 1.7 pg/mL (2.3-4.2) Uric Acid 5.4 MG/DL (2.6-7.2) Iron Level 43 ug/dL (50-175) Total Iron Binding Capacity 196 ug/dL (250-450) Percent Iron Saturation 22 % (15-50) Unsaturated Iron Binding 153 ug/dL (112-346) Ferritin 1425 NG/ML (8-388) C-Reactive Protein, Quantitative 3.1 mg/dL (0.00-0.90) Vitamin B12 Level 447 PG/ML (193-986) Folate 14.7 NG/ML (8.6-58.9) Thyroid Stimulating Hormone (TSH) 1.444 uiU/mL (0.358-3.740) Test 06/23/19 06:08 White Blood Count 4.3 K/UL (4.8-10.8) Red Blood Count 3.04 M/UL (4.20-5.40) Hemoglobin 9.3 G/DL (12.0-16.0) Hematocrit 28.4 % (37.0-47.0) Mean Corpuscular Volume 93 FL (80-99) Mean Corpuscular Hemoglobin 30.6 PG (27.0-31.0) Mean Corpuscular Hemoglobin Concent 32.8 G/DL (32.0-36.0) Red Cell Distribution Width 15.2 % (11.6-14.8) Platelet Count 220 K/UL (150-450) Mean Platelet Volume 5.9 FL (6.5-10.1) Neutrophils (%) (Auto) 69.6 % (45.0-75.0) Lymphocytes (%) (Auto) 15.3 % (20.0-45.0) Monocytes (%) (Auto) 9.4 % (1.0-10.0) Eosinophils (%) (Auto) 4.1 % (0.0-3.0) Basophils (%) (Auto) 1.7 % (0.0-2.0) Sodium Level 138 MMOL/L (136-145) Potassium Level 3.9 MMOL/L (3.5-5.1) Chloride Level 102 MMOL/L (98-107) Carbon Dioxide Level 30 MMOL/L (21-32) Anion Gap 6 mmol/L (5-15) Blood Urea Nitrogen 28 mg/dL (7-18) Creatinine 4.8 MG/DL (0.55-1.30) Estimat Glomerular Filtration Rate 9.0 mL/min (>60) Glucose Level 121 MG/DL (74-106) Calcium Level 8.2 MG/DL (8.5-10.1) Phosphorus Level 2.8 MG/DL (2.5-4.9) Total Bilirubin 0.6 MG/DL (0.2-1.0) Aspartate Amino Transf (AST/SGOT) 13 U/L (15-37) Alanine Aminotransferase (ALT/SGPT) 11 U/L (12-78) Alkaline Phosphatase 102 U/L (46-116) C-Reactive Protein, Quantitative 2.8 mg/dL (0.00-0.90) Pro-B-Type Natriuretic Peptide > 14168 pg/mL (0-125) Total Protein 7.1 G/DL (6.4-8.2) Albumin 3.4 G/DL (3.4-5.0) Globulin 3.7 g/dL Albumin/Globulin Ratio 0.9 (1.0-2.7) Height (Feet): 5 Height (Inches): 0.00 Weight (Pounds): 164 Objective PHYSICAL EXAMINATION: VITAL SIGNS: Reviewed. GENERAL: No distress. PULMONARY: Decreased breath sounds. ++ nc CARDIOVASCULAR: Regular rate. No S3 or S4. ABDOMEN: Soft, nontender, and nondistended. EXTREMITIES: No cyanosis, swelling, or edema. ++ Left AVS Carl Daniels MD Jun 24, 2019 08:09
[2019-06-24] MEDS: Imdur 30mg tab ORAL SCH (09:00)
[2019-06-24] MEDS: Docusate 100mg cap ORAL SCH ×3 (09:00→18:00)
[2019-06-24] MEDS: Liothyronine 5mcg tab ORAL SCH (10:26)
[2019-06-24] MEDS: Nephrovite tab (Rena-Vite) ORAL SCH (10:27)
[2019-06-24] MEDS: Calcium Acetate 667mg Tab ORAL SCH ×3 (10:27→19:04)
--- NOTE | 2019-06-24 11:32 | NUR ---
CASE MANAGEMENT: REVIEW 06/23/19 SI:ESRD ON HD. 98.1 73 18 183/73 93% ON 2L NC H/H 9.3/28.4 RBC 3.04 WBC 4.3 BUN 28 CREAT 4.8 CA+ 8.2 BNP>75480 IS: IV HYDRALAZINE Q4/PRN NOVOLOG SQ AC&HS LEVEMIR SQ Q24 HR GABAPENTIN PO Q8HR HYDRALZINE PO BID PHOSLO PO TID SINGULAIR PO Q PM ZETIA PO QD : 2E TELE UNIT CT ABD/PEL MILD PERICARDIAL EFFUSION AND PLEURAL EFFFUSION CASE MANAGEMENT: REVIEW 06/24/19 SI:ESRD ON HD. HTN 98.1 75 18 160/70 99% ON 2L NC IS: HYDRALAZINE PO BID PHOSLO PO TID NOVOLOG SQ AC&HS LEVEMIR SQ Q24 HR GABAPENTIN PO Q8HR PHOSLO PO TID SINGULAIR PO QPM ZETIA PO QD : 2E TELE UNIT CT ABD/PEL MILD PERICARDIAL EFFUSION AND PLEURAL EFFFUSION
--- NOTE | 2019-06-24 12:19 | Cardiac Electrophysiology PN ---
Assessment/Plan Assessment/Plan 1. Hypertension. On Norvasc 10, Imdur 60 mg daily, Hydralazine 50 q 8hr and HD 2. Hyperlipidemia, on Lipitor. 3. End-stage renal disease, on hemodialysis. 4. Anemia. Further evaluation by Dr. Daniels. 5. Pulmonary hypertension. GER RN Subjective Subjective Alert in NAD. No CP or SOB. In SR on tele.Scheduled for HD today Objective Last 24 Hour Vital Signs Date Time Temp Pulse Resp B/P (MAP) Pulse Ox O2 Delivery O2 Flow Rate FiO2 06/24/19 11:02 96 Room Air 21 06/24/19 11:02 79 20 96 Room Air 21 06/24/19 09:00 Nasal Cannula 2.0 06/24/19 06:04 160/70 06/24/19 04:00 98.1 76 18 160/70 (100) 99 06/24/19 04:00 75 06/24/19 00:00 98.1 79 18 162/79 (106) 100 06/24/19 00:00 78 06/23/19 21:20 180/74 06/23/19 21:00 Nasal Cannula 2.0 06/23/19 20:06 95 Nasal Cannula 2.0 28 06/23/19 20:00 77 06/23/19 20:00 76 18 95 Nasal Cannula 2.0 28 06/23/19 20:00 97.5 95 18 182/74 (110) 98 06/23/19 16:00 98.1 74 16 159/68 (98) 100 06/23/19 16:00 68 06/23/19 13:09 181/70 Intake and Output 06/23/19 06/24/19 19:00 07:00 Intake Total 390 ml 150 ml Output Total 2000 ml Balance 390 ml -1850 ml Intake Oral 390 ml 150 ml Output Hemodialysis UF 2000 ml # Voids 2 3 # Bowel Movements 1 2 Microbiology Date/Time Source Procedure Growth Status 06/21/19 20:30 Nasal Nares Left MRSA Culture - Final NO METHICILLIN RESISTANT STAPH AUREUS... Complete 06/21/19 20:30 Rectum VRE Culture - Final NO VANCOMYCIN RESISTANT ENTEROCOCCUS ... Complete Objective HEAD AND NECK: No JVD or carotid bruits. LUNGS: Decreased breath sounds. CARDIOVASCULAR: Regular S1 and S2 with no gallops. A 2/6 systolic murmur. ABDOMEN: Soft. EXTREMITIES: No pitting edema. Zev Gatica MD Jun 24, 2019 12:19
--- NOTE | 2019-06-24 15:05 | Nephrology Progress Note ---
Assessment/Plan Problem List: (1) ESRD (end stage renal disease) (2) Hypertensive kidney disease (3) Anemia in chronic kidney disease (CKD) (4) Episode of generalized weakness Assessment h/o GI bleed present with melena, worsening Anemia ESRD M W Fr h/o Pulm Edema DM HTN Anemia B12 and Iron def CAD . Plan HD as needed, scheduled 06/24 Transfused BP and BS check adjust BP meds Previously 2D Echo Ej Fx 50 % PACO: Hepatosplenomegaly. Question of medical renal disease. Small nonobstructive stone in the left kidney suspected. Cholelithiasis Subjective ROS Limited/Unobtainable: No Constitutional: Reports: malaise Objective Objective Last 24 Hour Vital Signs Date Time Temp Pulse Resp B/P (MAP) Pulse Ox O2 Delivery O2 Flow Rate FiO2 06/24/19 11:02 96 Room Air 21 06/24/19 11:02 79 20 96 Room Air 21 06/24/19 09:00 Nasal Cannula 2.0 06/24/19 06:04 160/70 06/24/19 04:00 98.1 76 18 160/70 (100) 99 06/24/19 04:00 75 06/24/19 00:00 98.1 79 18 162/79 (106) 100 06/24/19 00:00 78 06/23/19 21:20 180/74 06/23/19 21:00 Nasal Cannula 2.0 06/23/19 20:06 95 Nasal Cannula 2.0 28 06/23/19 20:00 77 06/23/19 20:00 76 18 95 Nasal Cannula 2.0 28 06/23/19 20:00 97.5 95 18 182/74 (110) 98 06/23/19 16:00 98.1 74 16 159/68 (98) 100 06/23/19 16:00 68 Intake and Output 06/23/19 06/24/19 19:00 07:00 Intake Total 390 ml 150 ml Output Total 2000 ml Balance 390 ml -1850 ml Intake Oral 390 ml 150 ml Output Hemodialysis UF 2000 ml # Voids 2 3 # Bowel Movements 1 2 Height (Feet): 5 Height (Inches): 0.00 Weight (Pounds): 161 General Appearance: no apparent distress Cardiovascular: normal rate Respiratory/Chest: decreased breath sounds Abdomen: soft Francis Falk MD Jun 24, 2019 15:05
[2019-06-24] MEDS: Montelukast 10mg tablet ORAL SCH (16:01)
--- NOTE | 2019-06-24 16:35 | NUR ---
NURSE NOTES: pt is wheezing call hazardous material technician for breathing treatment.
--- NOTE | 2019-06-24 19:01 | Pulmonology Progress Note ---
Assessment/Plan Assessment/Plan Pulmonary Consultation HPI Patient is a 69 year old woman, past medical history of end-stage CKD on hemodialysis Thursday, hypertension, GI bleed in the past presents with generalized weakness, generalized abdominal pain, diarrhea x1 day. Denies SOB, chest pain, no hemoptysis For HD today No significant Pericardial Effussion on Echocardiogram Allergies: No Known Allergies Past Medical History: CKD, HD, Hypertension, CAD, Diabetes, HHD, Vertigo, previous GI bleed, Asthma All Other Systems: negative except mentioned in HPI Physical Exam Vital Signs Noted General Appearance: well appearing, no apparent distress, alert Head: normocephalic, atraumatic Eyes: bilateral eye PERRL, bilateral eye EOMI, pale ENT: uvula midline, moist mucus membranes Neck: supple, thyroid normal, no LN Respiratory: mild wheeze, no respiratory distress, no retraction, no accessory muscle use Cardiovascular: normal peripheral pulses, regular rate, rhythm, HS1, HS2 normal ,no edema, no gallop, no murmur Gastrointestinal: non tender, soft, no guarding, no rebound Musculoskeletal: normal inspection Neurologic: alert, oriented x3 Skin: no rash, warm/dry Impression: Episode of generalized weakness CKD on HD CHF, Aortic stenosis, Pulmonary Hypertension Asthma Anemia Diabetes HTN - has order for PRN meds CAD Heart Disease Vertigo Plan: O2 PRN HHN PRN Solumedrol for wheezing IVF PRN TFN PRN, GI following Monitor labs Protonix PPX DYNAMOMETER TESTER medications HD per Renal Echocardiogram CT Abdomen/Chest: Basal atelectasis versus congestion, Mild pericardial effusion Subjective ROS Limited/Unobtainable: No Allergies: Coded Allergies: No Known Allergies (Unverified , 05/12/17) Objective Last 24 Hour Vital Signs Date Time Temp Pulse Resp B/P (MAP) Pulse Ox O2 Delivery O2 Flow Rate FiO2 06/24/19 16:42 82 20 100 Nasal Cannula 2.0 28 80 20 100 06/24/19 15:53 181/69 06/24/19 11:02 96 Room Air 21 06/24/19 11:02 79 20 96 Room Air 21 06/24/19 09:00 Nasal Cannula 2.0 06/24/19 06:04 160/70 06/24/19 04:00 98.1 76 18 160/70 (100) 99 06/24/19 04:00 75 06/24/19 00:00 98.1 79 18 162/79 (106) 100 06/24/19 00:00 78 06/23/19 21:20 180/74 06/23/19 21:00 Nasal Cannula 2.0 06/23/19 20:06 95 Nasal Cannula 2.0 28 06/23/19 20:00 77 06/23/19 20:00 76 18 95 Nasal Cannula 2.0 28 06/23/19 20:00 97.5 95 18 182/74 (110) 98 Intake and Output 06/23/19 06/24/19 19:00 07:00 Intake Total 390 ml 150 ml Output Total 2000 ml Balance 390 ml -1850 ml Intake Oral 390 ml 150 ml Output Hemodialysis UF 2000 ml # Voids 2 3 # Bowel Movements 1 2 Microbiology Date/Time Source Procedure Growth Status 06/21/19 20:30 Nasal Nares Left MRSA Culture - Final NO METHICILLIN RESISTANT STAPH AUREUS... Complete 06/21/19 20:30 Rectum VRE Culture - Final NO VANCOMYCIN RESISTANT ENTEROCOCCUS ... Complete Current Medications Medications (Trade) Dose Ordered Sig/Toya Route PRN Reason Start Time Stop Time Status Last Admin Dose Admin Acetaminophen (Tylenol) 650 mg Q6H PRN ORAL Mild Pain/Temp > 100.5 06/21/19 22:00 07/21/19 21:59 06/24/19 04:26 Albuterol/ Ipratropium (Albuterol/ Ipratropium) 3 ml Q6HR PRN HHN Shortness of Breath 06/21/19 22:00 06/26/19 21:59 06/24/19 16:38 Amlodipine Besylate (Norvasc) 10 mg DAILY ORAL 06/22/19 09:00 07/22/19 08:59 06/23/19 09:38 Atorvastatin Calcium (Lipitor) 10 mg BEDTIME ORAL 06/22/19 21:00 07/22/19 20:59 06/23/19 21:19 Calcium Acetate (Phoslo) 1,334 mg TID ORAL 06/22/19 09:00 07/22/19 08:59 06/24/19 14:06 Dextrose (Dextrose 50%) 25 ml Q30M PRN IV Hypoglycemia 06/21/19 21:45 07/21/19 21:44 Dextrose (Dextrose 50%) 50 ml Q30M PRN IV Hypoglycemia 06/21/19 21:45 07/21/19 21:44 Docusate Sodium (Colace) 100 mg THREE TIMES A DAY ORAL 06/22/19 09:00 07/22/19 08:59 06/22/19 17:10 EZETIMIBE (Zetia) 10 mg DAILY ORAL 06/22/19 09:00 07/22/19 08:59 06/24/19 10:26 Gabapentin (Neurontin) 100 mg Q8HR ORAL 06/21/19 22:00 07/21/19 21:59 06/24/19 14:06 Hydralazine HCl (Apresoline) 10 mg Q4H PRN IV bp over 160 syst 06/21/19 19:30 07/21/19 19:29 06/22/19 13:13 Hydralazine HCl (Apresoline) 50 mg Q8HR ORAL 06/23/19 14:00 07/22/19 17:59 06/24/19 15:53 Insulin Aspart (NovoLOG) BEFORE MEALS AND HS SUBQ 06/22/19 06:30 07/22/19 06:29 06/24/19 12:29 Insulin Detemir (Levemir) 20 units Q24H SUBQ 06/23/19 06:30 07/23/19 06:29 06/24/19 06:49 Isosorbide Mononitrate (Imdur) 60 mg DAILY ORAL 06/22/19 09:00 07/22/19 08:59 06/23/19 09:38 Levothyroxine Sodium (Synthroid) 25 mcg DAILY@0630 ORAL 06/22/19 06:30 07/22/19 06:29 06/24/19 06:05 Levothyroxine Sodium (Synthroid) 112 mcg ACBREAKFAST ORAL 06/22/19 06:30 07/22/19 06:29 06/24/19 06:05 Liothyronine Sodium (Cytomel) 5 mcg DAILY ORAL 06/24/19 09:00 07/24/19 08:59 06/24/19 10:26 Montelukast Sodium (Singulair) 10 mg QPM ORAL 06/22/19 16:30 07/22/19 16:29 06/24/19 16:01 Ondansetron HCl (Zofran) 4 mg Q6H PRN IVP Nausea & Vomiting 06/21/19 21:57 07/21/19 21:56 Pantoprazole (Protonix) 40 mg EVERY 12 HOURS ORAL 06/23/19 21:00 07/23/19 20:59 06/24/19 10:27 Vitamin B Complex/ Vit C/Folic Acid (Nephrovite) 1 tab DAILY ORAL 06/22/19 09:00 07/22/19 08:59 06/24/19 10:27 Brandon Herbert MD Jun 24, 2019 19:01
[2019-06-24] MEDS ORDERED: Albuterol/Ipratropium 3ml neb HHN PRN (19:03)
--- NOTE | 2019-06-24 20:15 | NUR ---
NURSE NOTES: Received report from SIDNEY Irvin. Pt is awake and alert and in no distress.Denies pain at this time. Bed is in lowest position, and fall precautions observed. will continue with plan of care. plan for hemodialysis this evening
--- NOTE | 2019-06-24 20:35 | NUR ---
HAND-OFF: Report given to Julissa/rn.
[2019-06-24] MEDS: Solu-MEDROL 40mg Inj IVP SCH ×2 (21:00→22:31)
--- NOTE | 2019-06-24 21:17 | General Progress Note ---
Assessment/Plan Problem List: (1) Hypertension ICD Codes: I10 - Essential (primary) hypertension SNOMED: 38973951 (2) Diabetic nephropathy with proteinuria ICD Codes: E11.21 - Type 2 diabetes mellitus with diabetic nephropathy SNOMED: 35449752, 744075435 (3) Renal failure ICD Codes: N19 - Unspecified kidney failure SNOMED: 49781119 (4) Black tarry stools ICD Codes: K92.1 - Melena SNOMED: 335910830 (5) ESRD (end stage renal disease) ICD Codes: N18.6 - End stage renal disease SNOMED: 29272720 (6) Hypertensive kidney disease ICD Codes: I12.9 - Hypertensive chronic kidney disease with stage 1 through stage 4 chronic kidney disease, or unspecified chronic kidney disease SNOMED: 63456083 (7) Anemia in chronic kidney disease (CKD) ICD Codes: N18.9 - Chronic kidney disease, unspecified; D63.1 - Anemia in chronic kidney disease SNOMED: 882659576 Status: progressing Assessment/Plan: h/o gi bleed no wheezing not hypoxic check h/h esrd on hd anemia r/o sepsis resp insuff Subjective ROS Limited/Unobtainable: Yes Allergies: Coded Allergies: No Known Allergies (Unverified , 05/12/17) Objective Last 24 Hour Vital Signs Date Time Temp Pulse Resp B/P (MAP) Pulse Ox O2 Delivery O2 Flow Rate FiO2 06/24/19 21:10 152/76 06/24/19 20:07 79 20 98 Room Air 21 06/24/19 20:07 98 Room Air 21 06/24/19 18:00 152/76 (101) 06/24/19 16:42 82 20 100 Nasal Cannula 2.0 28 80 20 100 06/24/19 16:00 97.6 72 18 170/69 (102) 98 06/24/19 16:00 80 06/24/19 15:53 181/69 06/24/19 12:00 81 06/24/19 12:00 98.1 79 19 158/69 (98) 96 06/24/19 11:02 96 Room Air 21 06/24/19 11:02 79 20 96 Room Air 21 06/24/19 09:00 Nasal Cannula 2.0 06/24/19 08:00 79 06/24/19 08:00 98.4 71 18 148/50 (82) 94 06/24/19 06:04 160/70 06/24/19 04:00 98.1 76 18 160/70 (100) 99 06/24/19 04:00 75 06/24/19 00:00 98.1 79 18 162/79 (106) 100 06/24/19 00:00 78 06/23/19 21:20 180/74 Intake and Output 06/23/19 06/24/19 19:00 07:00 Intake Total 390 ml 150 ml Output Total 2000 ml Balance 390 ml -1850 ml Intake Oral 390 ml 150 ml Output Hemodialysis UF 2000 ml # Voids 2 3 # Bowel Movements 1 2 Height (Feet): 5 Height (Inches): 0.00 Weight (Pounds): 161 Neck: supple Cardiovascular: normal rate Respiratory/Chest: lungs clear Makenna Daniel MD Jun 24, 2019 21:17
--- NOTE | 2019-06-24 23:50 | NUR ---
NURSE NOTES: Pt had dialysis, they removed 2.4 L. Pt had some hypertensive episodes and tachycardic but VSS at this time. BP is mildy elevated and 149/70
[2019-06-25] VITALS: BP 165/78
[2019-06-25 04:00] VITALS: BP 149/68
[2019-06-25] MEDS: Levothyroxine 25mcg tab ORAL SCH (05:07)
[2019-06-25] MEDS: HydrALAZINE 50mg tab ORAL SCH ×3 (05:07→21:19)
[2019-06-25] MEDS: NovoLOG Insulin Flexpen SUBQ SCH ×4 (06:21→21:20)
[2019-06-25] MEDS: Levemir Flexpen SUBQ SCH (06:23)
--- NOTE | 2019-06-25 07:30 | NUR ---
HAND-OFF: Report given to SIDNEY Arora.
[2019-06-25 08:00] VITALS: BP 159/72
[2019-06-25 08:00] LABS: HEMATOCRIT 29.2 % (37.0-47.0); HEMOGLOBIN 9.8 G/DL (12.0-16.0); MEAN CORPUSCULAR VOLUME 93 FL (80-99); PLATELET COUNT 202 K/UL (150-450); RED BLOOD COUNT 3.14 M/UL (4.20-5.40); RED CELL DISTRIBUTION WIDTH 15.2 % (11.6-14.8); WHITE BLOOD COUNT 5.3 K/UL (4.8-10.8)
--- NOTE | 2019-06-25 08:14 | NUR ---
NURSE NOTES: Recvd pt, Pt is awake and sitting up in bed. Pt is on room air with no sign of sob or resp distress. no c/o pain. IV site is c/d/i. bed alarm is on, will continue with plan of care
[2019-06-25 08:39] LABS: PHOSPHORUS 2.7 MG/DL (2.5-4.9)
[2019-06-25] MEDS: Imdur 30mg tab ORAL SCH (08:50)
[2019-06-25] MEDS: Liothyronine 5mcg tab ORAL SCH (08:50)
[2019-06-25] MEDS: Nephrovite tab (Rena-Vite) ORAL SCH (08:50)
[2019-06-25] MEDS: Calcium Acetate 667mg Tab ORAL SCH ×3 (08:50→17:55)
[2019-06-25] MEDS: Solu-MEDROL 40mg Inj IVP SCH (08:51)
[2019-06-25] MEDS: Docusate 100mg cap ORAL SCH ×3 (08:51→17:47)
[2019-06-25 08:52] LABS: ALANINE AMINOTRANSFERASE 11 U/L (12-78); ALBUMIN 3.7 G/DL (3.4-5.0); ALBUMIN/GLOBULIN RATIO 0.9 (1.0-2.7); ALKALINE PHOSPHATASE 103 U/L (46-116); ANION GAP 7 mmol/L (5-15); ASPARTATE AMINO TRANSFERASE 18 U/L (15-37); BILIRUBIN,TOTAL 0.8 MG/DL (0.2-1.0); BLOOD UREA NITROGEN 26 mg/dL (7-18); CARBON DIOXIDE 30 MMOL/L (21-32); CHLORIDE 97 MMOL/L (98-107); CREATININE 4.4 MG/DL (0.55-1.30); POTASSIUM 4.4 MMOL/L (3.5-5.1); SODIUM 134 MMOL/L (136-145)
[2019-06-25 12:00] VITALS: BP 147/89
--- NOTE | 2019-06-25 14:16 | Cardiac Electrophysiology PN ---
Assessment/Plan Assessment/Plan 1. Hypertension. On Norvasc 10, Imdur 60 mg daily, Hydralazine 50 q 8hr and HD Change Norvasc to Cardizem 60 tid in view of SVT 2. Hyperlipidemia, on Lipitor. 3. End-stage renal disease, on hemodialysis. 4. Anemia. Further evaluation by Dr. Daniels. 5. Pulmonary hypertension. 6. COPD. Solumedrol changed to Prednisone PO 7. Recurrent SVT 06/24/19 and 06/25/19 Change Norvasc to Cardizem [address] DW RN and Dr Falk Subjective Subjective Alert in NAD. No CP or SOB.Had runs of SVT rate 150. Had HD yesterday Objective Last 24 Hour Vital Signs Date Time Temp Pulse Resp B/P (MAP) Pulse Ox O2 Delivery O2 Flow Rate FiO2 06/25/19 12:00 98.0 86 20 147/89 (108) 96 06/25/19 09:00 Nasal Cannula 2.0 06/25/19 08:50 95 159/72 06/25/19 08:50 159/72 06/25/19 08:00 97.2 95 20 159/72 (101) 97 06/25/19 08:00 99 06/25/19 05:07 149/78 06/25/19 04:00 99.0 91 24 149/68 (95) 97 06/25/19 04:00 88 06/25/19 00:00 99.1 94 20 165/78 (107) 100 06/25/19 00:00 135 06/24/19 22:44 92 20 99 Nasal Cannula 2.0 28 06/24/19 22:34 88 22 97 Nasal Cannula 2.0 28 06/24/19 22:26 216/102 06/24/19 21:00 Nasal Cannula 2.0 06/24/19 20:07 79 20 98 Room Air 21 06/24/19 20:07 98 Room Air 21 06/24/19 20:00 86 06/24/19 20:00 98.4 82 20 165/77 (106) 100 06/24/19 18:00 152/76 (101) 06/24/19 16:42 82 20 100 Nasal Cannula 2.0 28 80 20 100 06/24/19 16:00 97.6 72 18 170/69 (102) 98 06/24/19 16:00 80 06/24/19 15:53 181/69 Intake and Output 06/24/19 06/25/19 19:00 07:00 Intake Total 180 ml Balance 180 ml Intake Oral 180 ml # Voids 3 3 # Bowel Movements 1 Laboratory Tests Test 06/25/19 06:11 White Blood Count 5.3 K/UL (4.8-10.8) Red Blood Count 3.14 M/UL (4.20-5.40) L Hemoglobin 9.8 G/DL (12.0-16.0) L Hematocrit 29.2 % (37.0-47.0) L Mean Corpuscular Volume 93 FL (80-99) Mean Corpuscular Hemoglobin 31.2 PG (27.0-31.0) H Mean Corpuscular Hemoglobin Concent 33.5 G/DL (32.0-36.0) Red Cell Distribution Width 15.2 % (11.6-14.8) H Platelet Count 202 K/UL (150-450) Mean Platelet Volume 5.1 FL (6.5-10.1) L Neutrophils (%) (Auto) % (45.0-75.0) Lymphocytes (%) (Auto) % (20.0-45.0) Monocytes (%) (Auto) % (1.0-10.0) Eosinophils (%) (Auto) % (0.0-3.0) Basophils (%) (Auto) % (0.0-2.0) Differential Total Cells Counted 100 Neutrophils % (Manual) 93 % (45-75) H Lymphocytes % (Manual) 5 % (20-45) L Monocytes % (Manual) 2 % (1-10) Eosinophils % (Manual) 0 % (0-3) Basophils % (Manual) 0 % (0-2) Band Neutrophils 0 % (0-8) Platelet Estimate Adequate Platelet Morphology Normal Hypochromasia 2+ Anisocytosis 1+ Sodium Level 134 MMOL/L (136-145) L Potassium Level 4.4 MMOL/L (3.5-5.1) Chloride Level 97 MMOL/L (98-107) L Carbon Dioxide Level 30 MMOL/L (21-32) Anion Gap 7 mmol/L (5-15) Blood Urea Nitrogen 26 mg/dL (7-18) H Creatinine 4.4 MG/DL (0.55-1.30) H Estimat Glomerular Filtration Rate 9.9 mL/min (>60) Glucose Level 209 MG/DL (74-106) H Calcium Level 8.0 MG/DL (8.5-10.1) L Phosphorus Level 2.7 MG/DL (2.5-4.9) Magnesium Level 2.0 MG/DL (1.8-2.4) Total Bilirubin 0.8 MG/DL (0.2-1.0) Aspartate Amino Transf (AST/SGOT) 18 U/L (15-37) Alanine Aminotransferase (ALT/SGPT) 11 U/L (12-78) L Alkaline Phosphatase 103 U/L (46-116) C-Reactive Protein, Quantitative 4.3 mg/dL (0.00-0.90) H Pro-B-Type Natriuretic Peptide > 00877 pg/mL (0-125) H Total Protein 7.6 G/DL (6.4-8.2) Albumin 3.7 G/DL (3.4-5.0) Globulin 3.9 g/dL Albumin/Globulin Ratio 0.9 (1.0-2.7) L Objective HEAD AND NECK: No JVD or carotid bruits. LUNGS: Decreased breath sounds. CARDIOVASCULAR: Regular S1 and S2 with no gallops. A 2/6 systolic murmur. ABDOMEN: Soft. EXTREMITIES: No pitting edema. Zev Gatica MD Jun 25, 2019 14:16
--- NOTE | 2019-06-25 15:38 | Nephrology Progress Note ---
Assessment/Plan Problem List: (1) ESRD (end stage renal disease) (2) Hypertensive kidney disease (3) Anemia in chronic kidney disease (CKD) (4) Episode of generalized weakness Assessment h/o GI bleed present with melena, worsening Anemia ESRD M W Fr h/o Pulm Edema DM HTN Anemia B12 and Iron def CAD . Plan HD as needed, scheduled 06/24 next 06/27 Rythme adjustment per cardio Transfused BP and BS check adjust BP meds Previously 2D Echo Ej Fx 50 % PACO: Hepatosplenomegaly. Question of medical renal disease. Small nonobstructive stone in the left kidney suspected. Cholelithiasis Subjective ROS Limited/Unobtainable: No Objective Objective Last 24 Hour Vital Signs Date Time Temp Pulse Resp B/P (MAP) Pulse Ox O2 Delivery O2 Flow Rate FiO2 06/25/19 15:00 147/89 06/25/19 12:00 98.0 86 20 147/89 (108) 96 06/25/19 12:00 85 06/25/19 09:00 Nasal Cannula 2.0 06/25/19 08:50 95 159/72 06/25/19 08:50 159/72 06/25/19 08:00 97.2 95 20 159/72 (101) 97 06/25/19 08:00 99 06/25/19 05:07 149/78 06/25/19 04:00 99.0 91 24 149/68 (95) 97 06/25/19 04:00 88 06/25/19 00:00 99.1 94 20 165/78 (107) 100 06/25/19 00:00 135 06/24/19 22:44 92 20 99 Nasal Cannula 2.0 28 06/24/19 22:34 88 22 97 Nasal Cannula 2.0 28 06/24/19 22:26 216/102 06/24/19 21:00 Nasal Cannula 2.0 06/24/19 20:07 79 20 98 Room Air 21 06/24/19 20:07 98 Room Air 21 06/24/19 20:00 86 06/24/19 20:00 98.4 82 20 165/77 (106) 100 06/24/19 18:00 152/76 (101) 06/24/19 16:42 82 20 100 Nasal Cannula 2.0 28 80 20 100 11/22/19 16:00 97.6 72 18 170/69 (102) 98 06/24/19 16:00 80 06/24/19 15:53 181/69 Intake and Output 06/24/19 06/25/19 19:00 07:00 Intake Total 180 ml Balance 180 ml Intake Oral 180 ml # Voids 3 3 # Bowel Movements 1 Laboratory Tests 06/25/19 06:11: White Blood Count 5.3, Red Blood Count 3.14L, Hemoglobin 9.8L, Hematocrit 29.2L , Mean Corpuscular Volume 93, Mean Corpuscular Hemoglobin 31.2H, Mean Corpuscular Hemoglobin Concent 33.5, Red Cell Distribution Width 15.2H, Platelet Count 202, Mean Platelet Volume 5.1L, Neutrophils (%) (Auto) , Lymphocytes (%) (Auto) , Monocytes (%) (Auto) , Eosinophils (%) (Auto) , Basophils (%) (Auto) , Differential Total Cells Counted 100, Neutrophils % ( Manual) 93H, Lymphocytes % (Manual) 5L, Monocytes % (Manual) 2, Eosinophils % ( Manual) 0, Basophils % (Manual) 0, Band Neutrophils 0, Platelet Estimate Adequate, Platelet Morphology Normal, Hypochromasia 2+, Anisocytosis 1+, Sodium Level 134L, Potassium Level 4.4, Chloride Level 97L, Carbon Dioxide Level 30, Anion Gap 7, Blood Urea Nitrogen 26H, Creatinine 4.4H, Estimat Glomerular Filtration Rate 9.9, Glucose Level 209H, Calcium Level 8.0L, Phosphorus Level 2.7, Magnesium Level 2.0, Total Bilirubin 0.8, Aspartate Amino Transf (AST/SGOT ) 18, Alanine Aminotransferase (ALT/SGPT) 11L, Alkaline Phosphatase 103, C- Reactive Protein, Quantitative 4.3H, Pro-B-Type Natriuretic Peptide > 01316A, Total Protein 7.6, Albumin 3.7, Globulin 3.9, Albumin/Globulin Ratio 0.9L, Hepatitis B Surface Antigen [Pending] Height (Feet): 5 Height (Inches): 0.00 Weight (Pounds): 157 General Appearance: no apparent distress Cardiovascular: tachycardia Respiratory/Chest: decreased breath sounds Abdomen: soft Francis Falk MD Jun 25, 2019 15:38
[2019-06-25 16:00] VITALS: BP 143/81
[2019-06-25] MEDS: Montelukast 10mg tablet ORAL SCH (17:55)
--- NOTE | 2019-06-25 19:40 | NUR ---
NURSE NOTES: Recvd pt from [facility]. Pt is awake and sitting up in bed. Pt is on 2 L NC, no signs of sob or resp distress. no c/o pain. IV site is c/d/i. bed alarm is on, will continue with plan of care
[2019-06-25 20:00] VITALS: BP 160/77
[2019-06-25] MEDS: dilTIAZem HCl 60mg tab ORAL SCH (21:18)
--- NOTE | 2019-06-25 22:41 | General Progress Note ---
Assessment/Plan Problem List: (1) Hypertension ICD Codes: I10 - Essential (primary) hypertension SNOMED: 50969871 (2) Diabetic nephropathy with proteinuria ICD Codes: E11.21 - Type 2 diabetes mellitus with diabetic nephropathy SNOMED: 95411866, 193303187 (3) Renal failure ICD Codes: N19 - Unspecified kidney failure SNOMED: 96817945 (4) Black tarry stools ICD Codes: K92.1 - Melena SNOMED: 138560560 (5) ESRD (end stage renal disease) ICD Codes: N18.6 - End stage renal disease SNOMED: 48929088 (6) Hypertensive kidney disease ICD Codes: I12.9 - Hypertensive chronic kidney disease with stage 1 through stage 4 chronic kidney disease, or unspecified chronic kidney disease SNOMED: 03688899 (7) Anemia in chronic kidney disease (CKD) ICD Codes: N18.9 - Chronic kidney disease, unspecified; D63.1 - Anemia in chronic kidney disease SNOMED: 010903655 Status: progressing Assessment/Plan: improving niddm check sugar esrd on hd anemia r/o sepsis resp insuff Subjective ROS Limited/Unobtainable: Yes Cardiovascular: Reports: no symptoms Allergies: Coded Allergies: No Known Allergies (Unverified , 05/12/17) Objective Last 24 Hour Vital Signs Date Time Temp Pulse Resp B/P (MAP) Pulse Ox O2 Delivery O2 Flow Rate FiO2 06/25/19 21:19 162/77 06/25/19 21:18 80 162/77 06/25/19 21:00 Nasal Cannula 2.0 06/25/19 20:48 79 20 98 Nasal Cannula 2.0 28 06/25/19 20:48 98 Nasal Cannula 2.0 28 06/25/19 20:00 98.4 80 18 160/77 (104) 98 06/25/19 20:00 78 06/25/19 16:00 81 06/25/19 16:00 97.3 87 20 143/81 (101) 97 06/25/19 15:00 147/89 06/25/19 12:00 98.0 86 20 147/89 (108) 96 06/25/19 12:00 85 06/25/19 09:00 Nasal Cannula 2.0 06/25/19 08:50 95 159/72 06/25/19 08:50 159/72 06/25/19 08:00 97.2 95 20 159/72 (101) 97 06/25/19 08:00 99 06/25/19 07:00 82 22 100 Nasal Cannula 2.0 28 06/25/19 07:00 100 Nasal Cannula 2.0 28 06/25/19 05:07 149/78 06/25/19 04:00 99.0 91 24 149/68 (95) 97 06/25/19 04:00 88 06/25/19 00:00 99.1 94 20 165/78 (107) 100 06/25/19 00:00 135 06/24/19 22:44 92 20 99 Nasal Cannula 2.0 28 Intake and Output 06/24/19 06/25/19 19:00 07:00 Intake Total 180 ml Balance 180 ml Intake Oral 180 ml # Voids 3 3 # Bowel Movements 1 Laboratory Tests 06/25/19 06:11: White Blood Count 5.3, Red Blood Count 3.14L, Hemoglobin 9.8L, Hematocrit 29.2L , Mean Corpuscular Volume 93, Mean Corpuscular Hemoglobin 31.2H, Mean Corpuscular Hemoglobin Concent 33.5, Red Cell Distribution Width 15.2H, Platelet Count 202, Mean Platelet Volume 5.1L, Neutrophils (%) (Auto) , Lymphocytes (%) (Auto) , Monocytes (%) (Auto) , Eosinophils (%) (Auto) , Basophils (%) (Auto) , Differential Total Cells Counted 100, Neutrophils % ( Manual) 93H, Lymphocytes % (Manual) 5L, Monocytes % (Manual) 2, Eosinophils % ( Manual) 0, Basophils % (Manual) 0, Band Neutrophils 0, Platelet Estimate Adequate, Platelet Morphology Normal, Hypochromasia 2+, Anisocytosis 1+, Sodium Level 134L, Potassium Level 4.4, Chloride Level 97L, Carbon Dioxide Level 30, Anion Gap 7, Blood Urea Nitrogen 26H, Creatinine 4.4H, Estimat Glomerular Filtration Rate 9.9, Glucose Level 209H, Calcium Level 8.0L, Phosphorus Level 2.7, Magnesium Level 2.0, Total Bilirubin 0.8, Aspartate Amino Transf (AST/SGOT ) 18, Alanine Aminotransferase (ALT/SGPT) 11L, Alkaline Phosphatase 103, C- Reactive Protein, Quantitative 4.3H, Pro-B-Type Natriuretic Peptide > 53838Z, Total Protein 7.6, Albumin 3.7, Globulin 3.9, Albumin/Globulin Ratio 0.9L, Hepatitis B Surface Antigen [Pending] Height (Feet): 5 Height (Inches): 0.00 Weight (Pounds): 157 Cardiovascular: normal rate Respiratory/Chest: lungs clear Abdomen: soft Makenna Daniel MD Jun 25, 2019 22:41
[2019-06-26] VITALS: BP 143/82
--- NOTE | 2019-06-26 02:52 | NUR ---
HAND-OFF: Report given to SIDNEY Talamantes.
--- NOTE | 2019-06-26 03:05 | NUR ---
NURSE NOTES: Received report from SIDNEY Gooden. Patient is asleep lying semi-welch's; resting comfortably. Arousable to verbal and tactile stimuli. No signs of acute distress or pain noted at this time. On 2L nasal cannula. AOx4; able to make needs known. Ambulates with assistance. Checked IV site; patent and flushed. No erythema, bleeding, or infiltration noted. Left AV shunt noted; thrill and bruit present. Bed at lowest position, brakes on, siderails up x3. Call light within reach. Will continue to monitor.
[2019-06-26 04:00] VITALS: BP 138/59
[2019-06-26] MEDS: dilTIAZem HCl 60mg tab ORAL SCH ×3 (05:39→22:26)
[2019-06-26] MEDS: Levothyroxine 25mcg tab ORAL SCH (05:40)
[2019-06-26] MEDS: HydrALAZINE 50mg tab ORAL SCH ×3 (05:40→22:26)
[2019-06-26] MEDS: NovoLOG Insulin Flexpen SUBQ SCH ×4 (05:44→20:54)
[2019-06-26] MEDS: Levemir Flexpen SUBQ SCH (05:45)
--- NOTE | 2019-06-26 07:20 | NUR ---
NURSE NOTES: Received report from Darcie LITTLE. Pt in bed awake/oriented x4 and belizean speaking. No c/o pain. No SOB noted. Sinus rhythm on monitor. IV site in Right wrist 24G SL patent and asymptomatic. Will continue plan of care.
[2019-06-26 07:25] LABS: BASOPHILS % (AUTO) 1.7 % (0.0-2.0); EOSINOPHILS % (AUTO) 2.4 % (0.0-3.0); HEMATOCRIT 27.1 % (37.0-47.0); HEMOGLOBIN 8.9 G/DL (12.0-16.0); LYMPHOCYTES % (AUTO) 18.5 % (20.0-45.0); MEAN CORPUSCULAR VOLUME 94 FL (80-99); MONOCYTES % (AUTO) 14.4 % (1.0-10.0); PLATELET COUNT 198 K/UL (150-450); RED BLOOD COUNT 2.89 M/UL (4.20-5.40); RED CELL DISTRIBUTION WIDTH 15.3 % (11.6-14.8); WHITE BLOOD COUNT 3.6 K/UL (4.8-10.8)
[2019-06-26 07:37] LABS: ANION GAP 3 mmol/L (5-15); BLOOD UREA NITROGEN 42 mg/dL (7-18); CARBON DIOXIDE 33 MMOL/L (21-32); CHLORIDE 100 MMOL/L (98-107); CREATININE 5.6 MG/DL (0.55-1.30); POTASSIUM 4.3 MMOL/L (3.5-5.1); SODIUM 136 MMOL/L (136-145)
--- NOTE | 2019-06-26 07:41 | NUR ---
HAND-OFF: Report given to SIDNEY Barger. Patient is awake eating breakfast. In stable condition.
[2019-06-26 08:00] VITALS: BP 150/62
[2019-06-26] MEDS: Liothyronine 5mcg tab ORAL SCH (09:19)
[2019-06-26] MEDS: Calcium Acetate 667mg Tab ORAL SCH ×4 (09:19→17:02)
[2019-06-26] MEDS: Imdur 30mg tab ORAL SCH (09:19)
[2019-06-26] MEDS: Docusate 100mg cap ORAL SCH ×3 (09:19→16:58)
[2019-06-26] MEDS: Nephrovite tab (Rena-Vite) ORAL SCH (09:19)
--- NOTE | 2019-06-26 11:06 | Nephrology Progress Note ---
Assessment/Plan Problem List: (1) ESRD (end stage renal disease) (2) Hypertensive kidney disease (3) Anemia in chronic kidney disease (CKD) (4) Episode of generalized weakness Assessment h/o GI bleed present with melena, worsening Anemia ESRD M W Fr h/o Pulm Edema DM HTN Anemia B12 and Iron def CAD . Plan on cardiazem now HD as needed, scheduled 06/24 next 06/27 Rythme adjustment per cardio Transfused BP and BS check adjust BP meds Previously 2D Echo Ej Fx 50 % PACO: Hepatosplenomegaly. Question of medical renal disease. Small nonobstructive stone in the left kidney suspected. Cholelithiasis Subjective ROS Limited/Unobtainable: No Objective Objective Last 24 Hour Vital Signs Date Time Temp Pulse Resp B/P (MAP) Pulse Ox O2 Delivery O2 Flow Rate FiO2 06/26/19 09:19 150/62 06/26/19 09:00 Nasal Cannula 2.0 06/26/19 08:00 98.1 85 16 150/62 (91) 98 06/26/19 08:00 86 06/26/19 05:40 138/59 06/26/19 05:39 70 138/59 06/26/19 04:00 71 06/26/19 04:00 97.7 78 24 138/59 (85) 98 06/26/19 00:00 98.2 80 18 143/82 (102) 98 06/26/19 00:00 78 06/25/19 21:19 162/77 06/25/19 21:18 80 162/77 06/25/19 21:00 Nasal Cannula 2.0 06/25/19 20:48 79 20 98 Nasal Cannula 2.0 28 06/25/19 20:48 98 Nasal Cannula 2.0 28 06/25/19 20:00 98.4 80 18 160/77 (104) 98 06/25/19 20:00 78 06/25/19 16:00 81 06/25/19 16:00 97.3 87 20 143/81 (101) 97 06/25/19 15:00 147/89 06/25/19 12:00 98.0 86 20 147/89 (108) 96 06/25/19 12:00 85 Intake and Output 06/25/19 06/26/19 18:59 06:59 Intake Total 720 ml 240 ml Balance 720 ml 240 ml Intake Oral 720 ml 240 ml # Voids 2 Current Medications Medications (Trade) Dose Ordered Sig/Toya Route PRN Reason Start Time Stop Time Status Last Admin Dose Admin Acetaminophen (Tylenol) 650 mg Q6H PRN ORAL Mild Pain/Temp > 100.5 06/21/19 22:00 07/21/19 21:59 06/24/19 04:26 Albuterol/ Ipratropium (Albuterol/ Ipratropium) 3 ml Q4H PRN HHN Shortness of Breath 06/24/19 19:03 06/29/19 19:02 06/24/19 22:33 Atorvastatin Calcium (Lipitor) 10 mg BEDTIME ORAL 06/22/19 21:00 07/22/19 20:59 06/25/19 21:18 Calcium Acetate (Phoslo) 1,334 mg TID ORAL 06/22/19 09:00 07/22/19 08:59 06/26/19 09:19 Dextrose (Dextrose 50%) 25 ml Q30M PRN IV Hypoglycemia 06/21/19 21:45 07/21/19 21:44 Dextrose (Dextrose 50%) 50 ml Q30M PRN IV Hypoglycemia 06/21/19 21:45 07/21/19 21:44 Diltiazem HCl (Cardizem) 60 mg EVERY 8 HOURS ORAL 06/25/19 22:00 07/25/19 21:59 06/26/19 05:39 Docusate Sodium (Colace) 100 mg THREE TIMES A DAY ORAL 06/22/19 09:00 07/22/19 08:59 06/26/19 09:19 EZETIMIBE (Zetia) 10 mg DAILY ORAL 06/22/19 09:00 07/22/19 08:59 06/26/19 09:19 Gabapentin (Neurontin) 100 mg Q8HR ORAL 06/21/19 22:00 07/21/19 21:59 06/26/19 05:40 Hydralazine HCl (Apresoline) 10 mg Q4H PRN IV bp over 160 syst 06/21/19 19:30 07/21/19 19:29 06/22/19 13:13 Hydralazine HCl (Apresoline) 50 mg Q8HR ORAL 06/23/19 14:00 07/22/19 17:59 06/26/19 05:40 Insulin Aspart (NovoLOG) BEFORE MEALS AND HS SUBQ 06/22/19 06:30 07/22/19 06:29 06/26/19 05:44 Insulin Detemir (Levemir) 20 units Q24H SUBQ 06/23/19 06:30 07/23/19 06:29 06/26/19 05:45 Isosorbide Mononitrate (Imdur) 60 mg DAILY ORAL 06/22/19 09:00 07/22/19 08:59 06/26/19 09:19 Levothyroxine Sodium (Synthroid) 25 mcg DAILY@0630 ORAL 06/22/19 06:30 07/22/19 06:29 06/26/19 05:40 Levothyroxine Sodium (Synthroid) 112 mcg ACBREAKFAST ORAL 06/22/19 06:30 07/22/19 06:29 06/26/19 05:40 Liothyronine Sodium (Cytomel) 5 mcg DAILY ORAL 06/24/19 09:00 07/24/19 08:59 06/26/19 09:19 Montelukast Sodium (Singulair) 10 mg QPM ORAL 06/22/19 16:30 07/22/19 16:29 06/25/19 17:55 Ondansetron HCl (Zofran) 4 mg Q6H PRN IVP Nausea & Vomiting 06/21/19 21:57 07/21/19 21:56 Pantoprazole (Protonix) 40 mg EVERY 12 HOURS ORAL 06/23/19 21:00 07/23/19 20:59 06/26/19 09:19 Prednisone (predniSONE) 20 mg DAILY ORAL 06/26/19 09:00 07/26/19 08:59 06/26/19 09:19 Vitamin B Complex/ Vit C/Folic Acid (Nephrovite) 1 tab DAILY ORAL 06/22/19 09:00 07/22/19 08:59 06/26/19 09:19 Laboratory Tests 06/26/19 05:55: White Blood Count 3.6L, Red Blood Count 2.89L, Hemoglobin 8.9L, Hematocrit 27.1L , Mean Corpuscular Volume 94, Mean Corpuscular Hemoglobin 30.8, Mean Corpuscular Hemoglobin Concent 32.9, Red Cell Distribution Width 15.3H, Platelet Count 198, Mean Platelet Volume 5.2L, Neutrophils (%) (Auto) 63.0, Lymphocytes (%) (Auto) 18.5L, Monocytes (%) (Auto) 14.4H, Eosinophils (%) (Auto ) 2.4, Basophils (%) (Auto) 1.7, Sodium Level 136, Potassium Level 4.3, Chloride Level 100, Carbon Dioxide Level 33H, Anion Gap 3L, Blood Urea Nitrogen 42H, Creatinine 5.6H, Estimat Glomerular Filtration Rate 7.5, Glucose Level 127H , Calcium Level 8.0L Height (Feet): 5 Height (Inches): 0.00 Weight (Pounds): 152 Cardiovascular: normal rate Respiratory/Chest: decreased breath sounds Abdomen: distended Francis Falk MD Jun 26, 2019 11:05
[2019-06-26 12:00] VITALS: BP 163/68
--- NOTE | 2019-06-26 13:12 | Cardiac Electrophysiology PN ---
Assessment/Plan Assessment/Plan 1. Hypertension. On Cardizem 60 tid , Imdur 60 mg daily, Hydralazine 50 q 8hr and HD 2. Hyperlipidemia, on Lipitor. 3. End-stage renal disease, on hemodialysis. 4. Anemia. Further evaluation by Dr. Daniels. 5. Pulmonary hypertension. 6. COPD. Solumedrol changed to Prednisone PO 7. Recurrent SVT 06/24/19 and 06/25/19 . On Cardizem 60 tid no recurrence GER RN and Dr Falk Subjective Subjective Alert in NAD. No CP or SOB. No SVT overnight. HD tomorrow befor DC Objective Last 24 Hour Vital Signs Date Time Temp Pulse Resp B/P (MAP) Pulse Ox O2 Delivery O2 Flow Rate FiO2 06/26/19 12:00 98.0 78 14 163/68 (99) 99 06/26/19 09:19 150/62 06/26/19 09:00 Nasal Cannula 2.0 06/26/19 08:00 98.1 85 16 150/62 (91) 98 06/26/19 08:00 86 06/26/19 07:00 98 Nasal Cannula 2.0 28 06/26/19 07:00 83 18 98 Nasal Cannula 2.0 28 06/26/19 05:40 138/59 06/26/19 05:39 70 138/59 06/26/19 04:00 71 06/26/19 04:00 97.7 78 24 138/59 (85) 98 06/26/19 00:00 98.2 80 18 143/82 (102) 98 06/26/19 00:00 78 06/25/19 21:19 162/77 06/25/19 21:18 80 162/77 06/25/19 21:00 Nasal Cannula 2.0 06/25/19 20:48 79 20 98 Nasal Cannula 2.0 28 06/25/19 20:48 98 Nasal Cannula 2.0 28 06/25/19 20:00 98.4 80 18 160/77 (104) 98 06/25/19 20:00 78 06/25/19 16:00 81 06/25/19 16:00 97.3 87 20 143/81 (101) 97 06/25/19 15:00 147/89 Intake and Output 06/25/19 06/26/19 19:00 07:00 Intake Total 720 ml 240 ml Balance 720 ml 240 ml Intake Oral 720 ml 240 ml # Voids 2 Laboratory Tests Test 06/26/19 05:55 White Blood Count 3.6 K/UL (4.8-10.8) L Red Blood Count 2.89 M/UL (4.20-5.40) L Hemoglobin 8.9 G/DL (12.0-16.0) L Hematocrit 27.1 % (37.0-47.0) L Mean Corpuscular Volume 94 FL (80-99) Mean Corpuscular Hemoglobin 30.8 PG (27.0-31.0) Mean Corpuscular Hemoglobin Concent 32.9 G/DL (32.0-36.0) Red Cell Distribution Width 15.3 % (11.6-14.8) H Platelet Count 198 K/UL (150-450) Mean Platelet Volume 5.2 FL (6.5-10.1) L Neutrophils (%) (Auto) 63.0 % (45.0-75.0) Lymphocytes (%) (Auto) 18.5 % (20.0-45.0) L Monocytes (%) (Auto) 14.4 % (1.0-10.0) H Eosinophils (%) (Auto) 2.4 % (0.0-3.0) Basophils (%) (Auto) 1.7 % (0.0-2.0) Sodium Level 136 MMOL/L (136-145) Potassium Level 4.3 MMOL/L (3.5-5.1) Chloride Level 100 MMOL/L (98-107) Carbon Dioxide Level 33 MMOL/L (21-32) H Anion Gap 3 mmol/L (5-15) L Blood Urea Nitrogen 42 mg/dL (7-18) H Creatinine 5.6 MG/DL (0.55-1.30) H Estimat Glomerular Filtration Rate 7.5 mL/min (>60) Glucose Level 127 MG/DL (74-106) H Calcium Level 8.0 MG/DL (8.5-10.1) L Phosphorus Level 3.2 MG/DL (2.5-4.9) Objective HEAD AND NECK: No JVD or carotid bruits. LUNGS: Decreased breath sounds. CARDIOVASCULAR: Regular S1 and S2 with no gallops. A 2/6 systolic murmur. ABDOMEN: Soft. EXTREMITIES: No pitting edema.Dialysis access Left Arm AV shunt Zev Gatica MD Jun 26, 2019 13:12
[2019-06-26 16:00] VITALS: BP 151/71
[2019-06-26] MEDS: Montelukast 10mg tablet ORAL SCH (17:01)
--- NOTE | 2019-06-26 17:40 | Hematology/Onc Progress Note ---
Assessment/Plan Assessment/Plan Assessment/Plan 1. Anemia due to underlying chronic disease. Have reviewed prior workup, ferritin is >1000, though percent saturation Tsat <30, but not recommended for further iron --> Continue to closely monitor. --> Transfuse if hgb <7 --> if ferritin <500, give iron suppl --> give epogen, has been started 3x a week --> as per renal --> monitor for gi bleed, gi consulted --> hgb trend 7.8-->9.3->8.9 2. Leukopenia likely reactive process v infection v from meds --> hepatitis and hiv prior negative --> neutropenic precautions if ANC <1500 --> trending stable --> imaging reviewed and no hsm / cirrhosis noted --> wbc 2.7-->3.4-->4-->3.6 --> ANC goal >1500 3. End-stage renal disease, on hemodialysis three times a week. --> renal consulted --> continue hd 4. History of coronary artery disease. --> cards reviewed --> diuresis prn 5. History of anemia due to low B12, low iron --> b12 is currently within normal limits --> reobtain q6mo 6. Dizziness and unsteady gait 7. DVt ppsx with SCDs Greatly appreciate consultation and Dw RN am. Subjective Constitutional: Denies: no symptoms, chills, fever, malaise, weakness, other Cardiovascular: Denies: no symptoms, chest pain, edema, irregular heart rate, lightheadedness, palpitations, syncope, other Respiratory: Denies: no symptoms, cough, shortness of breath, SOB with excertion, SOB at rest, sputum, wheezing, other Gastrointestinal/Abdominal: Denies: no symptoms, abdomen distended, abdominal pain, black stools, tarry stools, blood in stool, constipated, diarrhea, difficulty swallowing, nausea, poor appetite, poor fluid intake, rectal bleeding , vomiting, other Genitourinary: Denies: no symptoms, burning, discharge, frequency, flank pain, hematuria, incontinence, pain, urgency, other Allergies: Coded Allergies: No Known Allergies (Unverified , 05/12/17) Subjective 06/23: on anti-htn as per Dr. Gatica, no bleeding, no f/c, hgb better 06/24: no events, to undergo hd today, no bleeding 06/26: transfused in recent, no complaints, on cardizem, seen renal and cards Objective Objective Current Medications Medications (Trade) Dose Ordered Sig/Toya Route PRN Reason Start Time Stop Time Status Last Admin Dose Admin Acetaminophen (Tylenol) 650 mg Q6H PRN ORAL Mild Pain/Temp > 100.5 06/21/19 22:00 07/21/19 21:59 06/24/19 04:26 Albuterol/ Ipratropium (Albuterol/ Ipratropium) 3 ml Q4H PRN HHN Shortness of Breath 06/24/19 19:03 06/29/19 19:02 06/24/19 22:33 Atorvastatin Calcium (Lipitor) 10 mg BEDTIME ORAL 06/22/19 21:00 07/22/19 20:59 06/25/19 21:18 Calcium Acetate (Phoslo) 1,334 mg TID ORAL 06/22/19 09:00 07/22/19 08:59 06/26/19 17:02 Dextrose (Dextrose 50%) 25 ml Q30M PRN IV Hypoglycemia 06/21/19 21:45 07/21/19 21:44 Dextrose (Dextrose 50%) 50 ml Q30M PRN IV Hypoglycemia 06/21/19 21:45 07/21/19 21:44 Diltiazem HCl (Cardizem) 60 mg EVERY 8 HOURS ORAL 06/25/19 22:00 07/25/19 21:59 06/26/19 13:14 Docusate Sodium (Colace) 100 mg THREE TIMES A DAY ORAL 06/22/19 09:00 07/22/19 08:59 06/26/19 13:13 EZETIMIBE (Zetia) 10 mg DAILY ORAL 06/22/19 09:00 07/22/19 08:59 06/26/19 09:19 Gabapentin (Neurontin) 100 mg Q8HR ORAL 06/21/19 22:00 07/21/19 21:59 06/26/19 13:13 Hydralazine HCl (Apresoline) 10 mg Q4H PRN IV bp over 160 syst 06/21/19 19:30 07/21/19 19:29 06/22/19 13:13 Hydralazine HCl (Apresoline) 50 mg Q8HR ORAL 06/23/19 14:00 07/22/19 17:59 06/26/19 13:14 Insulin Aspart (NovoLOG) BEFORE MEALS AND HS SUBQ 06/22/19 06:30 07/22/19 06:29 06/26/19 16:56 Insulin Detemir (Levemir) 20 units Q24H SUBQ 06/23/19 06:30 07/23/19 06:29 06/26/19 05:45 Isosorbide Mononitrate (Imdur) 60 mg DAILY ORAL 06/22/19 09:00 07/22/19 08:59 06/26/19 09:19 Levothyroxine Sodium (Synthroid) 25 mcg DAILY@0630 ORAL 06/22/19 06:30 07/22/19 06:29 06/26/19 05:40 Levothyroxine Sodium (Synthroid) 112 mcg ACBREAKFAST ORAL 06/22/19 06:30 07/22/19 06:29 06/26/19 05:40 Liothyronine Sodium (Cytomel) 5 mcg DAILY ORAL 06/24/19 09:00 07/24/19 08:59 06/26/19 09:19 Montelukast Sodium (Singulair) 10 mg QPM ORAL 06/22/19 16:30 07/22/19 16:29 06/26/19 17:01 Ondansetron HCl (Zofran) 4 mg Q6H PRN IVP Nausea & Vomiting 06/21/19 21:57 07/21/19 21:56 Pantoprazole (Protonix) 40 mg EVERY 12 HOURS ORAL 06/23/19 21:00 07/23/19 20:59 06/26/19 09:19 Prednisone (predniSONE) 20 mg DAILY ORAL 06/26/19 09:00 07/26/19 08:59 06/26/19 09:19 Vitamin B Complex/ Vit C/Folic Acid (Nephrovite) 1 tab DAILY ORAL 06/22/19 09:00 07/22/19 08:59 06/26/19 09:19 Last 24 Hour Vital Signs Date Time Temp Pulse Resp B/P (MAP) Pulse Ox O2 Delivery O2 Flow Rate FiO2 06/26/19 16:00 98.0 80 14 151/71 (97) 99 06/26/19 13:14 78 163/68 06/26/19 13:14 163/68 06/26/19 12:00 98.0 78 14 163/68 (99) 99 06/26/19 12:00 78 06/26/19 09:19 150/62 06/26/19 09:00 Nasal Cannula 2.0 06/26/19 08:00 98.1 85 16 150/62 (91) 98 06/26/19 08:00 86 06/26/19 07:00 98 Nasal Cannula 2.0 28 06/26/19 07:00 83 18 98 Nasal Cannula 2.0 28 06/26/19 05:40 138/59 06/26/19 05:39 70 138/59 06/26/19 04:00 71 06/26/19 04:00 97.7 78 24 138/59 (85) 98 06/26/19 00:00 98.2 80 18 143/82 (102) 98 06/26/19 00:00 78 06/25/19 21:19 162/77 06/25/19 21:18 80 162/77 06/25/19 21:00 Nasal Cannula 2.0 06/25/19 20:48 79 20 98 Nasal Cannula 2.0 28 06/25/19 20:48 98 Nasal Cannula 2.0 28 06/25/19 20:00 98.4 80 18 160/77 (104) 98 06/25/19 20:00 78 06/25/19 16:00 81 06/25/19 16:00 97.3 87 20 143/81 (101) 97 06/25/19 15:00 147/89 06/25/19 12:00 98.0 86 20 147/89 (108) 96 06/25/19 12:00 85 06/25/19 09:00 Nasal Cannula 2.0 06/25/19 08:50 95 159/72 06/25/19 08:50 159/72 06/25/19 08:00 97.2 95 20 159/72 (101) 97 06/25/19 08:00 99 06/25/19 07:00 82 22 100 Nasal Cannula 2.0 28 06/25/19 07:00 100 Nasal Cannula 2.0 28 06/25/19 05:07 149/78 06/25/19 04:00 99.0 91 24 149/68 (95) 97 06/25/19 04:00 88 06/25/19 00:00 99.1 94 20 165/78 (107) 100 06/25/19 00:00 135 06/24/19 22:44 92 20 99 Nasal Cannula 2.0 28 06/24/19 22:34 88 22 97 Nasal Cannula 2.0 28 06/24/19 22:26 216/102 06/24/19 21:00 Nasal Cannula 2.0 06/24/19 20:07 79 20 98 Room Air 21 06/24/19 20:07 98 Room Air 21 06/24/19 20:00 86 06/24/19 20:00 98.4 82 20 165/77 (106) 100 06/24/19 18:00 152/76 (101) Intake and Output 06/25/19 06/26/19 19:00 07:00 Intake Total 720 ml 240 ml Balance 720 ml 240 ml Intake Oral 720 ml 240 ml # Voids 2 Labs Test 06/25/19 06:11 06/26/19 05:55 White Blood Count 5.3 K/UL (4.8-10.8) 3.6 K/UL (4.8-10.8) Red Blood Count 3.14 M/UL (4.20-5.40) 2.89 M/UL (4.20-5.40) Hemoglobin 9.8 G/DL (12.0-16.0) 8.9 G/DL (12.0-16.0) Hematocrit 29.2 % (37.0-47.0) 27.1 % (37.0-47.0) Mean Corpuscular Volume 93 FL (80-99) 94 FL (80-99) Mean Corpuscular Hemoglobin 31.2 PG (27.0-31.0) 30.8 PG (27.0-31.0) Mean Corpuscular Hemoglobin Concent 33.5 G/DL (32.0-36.0) 32.9 G/DL (32.0-36.0) Red Cell Distribution Width 15.2 % (11.6-14.8) 15.3 % (11.6-14.8) Platelet Count 202 K/UL (150-450) 198 K/UL (150-450) Mean Platelet Volume 5.1 FL (6.5-10.1) 5.2 FL (6.5-10.1) Neutrophils (%) (Auto) % (45.0-75.0) 63.0 % (45.0-75.0) Lymphocytes (%) (Auto) % (20.0-45.0) 18.5 % (20.0-45.0) Monocytes (%) (Auto) % (1.0-10.0) 14.4 % (1.0-10.0) Eosinophils (%) (Auto) % (0.0-3.0) 2.4 % (0.0-3.0) Basophils (%) (Auto) % (0.0-2.0) 1.7 % (0.0-2.0) Differential Total Cells Counted 100 Neutrophils % (Manual) 93 % (45-75) Lymphocytes % (Manual) 5 % (20-45) Monocytes % (Manual) 2 % (1-10) Eosinophils % (Manual) 0 % (0-3) Basophils % (Manual) 0 % (0-2) Band Neutrophils 0 % (0-8) Platelet Estimate Adequate Platelet Morphology Normal Hypochromasia 2+ Anisocytosis 1+ Sodium Level 134 MMOL/L (136-145) 136 MMOL/L (136-145) Potassium Level 4.4 MMOL/L (3.5-5.1) 4.3 MMOL/L (3.5-5.1) Chloride Level 97 MMOL/L (98-107) 100 MMOL/L (98-107) Carbon Dioxide Level 30 MMOL/L (21-32) 33 MMOL/L (21-32) Anion Gap 7 mmol/L (5-15) 3 mmol/L (5-15) Blood Urea Nitrogen 26 mg/dL (7-18) 42 mg/dL (7-18) Creatinine 4.4 MG/DL (0.55-1.30) 5.6 MG/DL (0.55-1.30) Estimat Glomerular Filtration Rate 9.9 mL/min (>60) 7.5 mL/min (>60) Glucose Level 209 MG/DL (74-106) 127 MG/DL (74-106) Calcium Level 8.0 MG/DL (8.5-10.1) 8.0 MG/DL (8.5-10.1) Phosphorus Level 2.7 MG/DL (2.5-4.9) 3.2 MG/DL (2.5-4.9) Magnesium Level 2.0 MG/DL (1.8-2.4) Total Bilirubin 0.8 MG/DL (0.2-1.0) Aspartate Amino Transf (AST/SGOT) 18 U/L (15-37) Alanine Aminotransferase (ALT/SGPT) 11 U/L (12-78) Alkaline Phosphatase 103 U/L (46-116) C-Reactive Protein, Quantitative 4.3 mg/dL (0.00-0.90) Pro-B-Type Natriuretic Peptide > 44207 pg/mL (0-125) Total Protein 7.6 G/DL (6.4-8.2) Albumin 3.7 G/DL (3.4-5.0) Globulin 3.9 g/dL Albumin/Globulin Ratio 0.9 (1.0-2.7) Height (Feet): 5 Height (Inches): 0.00 Weight (Pounds): 167 Objective PHYSICAL EXAMINATION: VITAL SIGNS: Reviewed. GENERAL: No distress. PULMONARY: Decreased breath sounds. ++ nc CARDIOVASCULAR: Regular rate. No S3 or S4. ABDOMEN: Soft, nontender, and nondistended. EXTREMITIES: No cyanosis, swelling, or edema. ++ Left AVS Carl Daniels MD Jun 26, 2019 17:40
--- NOTE | 2019-06-26 18:50 | NUR ---
NURSE NOTES: [facility]27/2019
--- NOTE | 2019-06-26 19:20 | NUR ---
HAND-OFF: Report given to Vinita LITTLE. Pt remains stable.
--- NOTE | 2019-06-26 19:26 | NUR ---
NURSE NOTES: Received report from SIDNEY Barger. Patient is awake lying semi-welch's watching TV; resting comfortably. No signs of acute distress noted; denies pain at this time. AOx4; able to make needs known. Ambulates with assistance. Checked IV site; patent and flushed. No erythema, bleeding, or infiltration noted. Left AV shunt noted; thrill and bruit present. Bed at lowest position, brakes on, siderails up x3. Call light within reach. Will continue to monitor.
[2019-06-26 20:00] VITALS: BP 160/68
--- NOTE | 2019-06-26 20:42 | General Progress Note ---
Assessment/Plan Problem List: (1) Hypertension ICD Codes: I10 - Essential (primary) hypertension SNOMED: 15206426 (2) Diabetic nephropathy with proteinuria ICD Codes: E11.21 - Type 2 diabetes mellitus with diabetic nephropathy SNOMED: 87238168, 452320413 (3) Renal failure ICD Codes: N19 - Unspecified kidney failure SNOMED: 38671382 (4) Black tarry stools ICD Codes: K92.1 - Melena SNOMED: 418283646 (5) ESRD (end stage renal disease) ICD Codes: N18.6 - End stage renal disease SNOMED: 32363773 (6) Hypertensive kidney disease ICD Codes: I12.9 - Hypertensive chronic kidney disease with stage 1 through stage 4 chronic kidney disease, or unspecified chronic kidney disease SNOMED: 30267590 (7) Anemia in chronic kidney disease (CKD) ICD Codes: N18.9 - Chronic kidney disease, unspecified; D63.1 - Anemia in chronic kidney disease SNOMED: 754966709 Status: progressing Assessment/Plan: pancytopenia no sob dc in am if all ok esrd on hd anemia r/o sepsis resp insuff Subjective ROS Limited/Unobtainable: Yes Allergies: Coded Allergies: No Known Allergies (Unverified , 05/12/17) Objective Last 24 Hour Vital Signs Date Time Temp Pulse Resp B/P (MAP) Pulse Ox O2 Delivery O2 Flow Rate FiO2 06/26/19 16:00 86 06/26/19 16:00 98.0 80 14 151/71 (97) 99 06/26/19 13:14 78 163/68 06/26/19 13:14 163/68 06/26/19 12:00 98.0 78 14 163/68 (99) 99 06/26/19 12:00 78 06/26/19 09:19 150/62 06/26/19 09:00 Nasal Cannula 2.0 06/26/19 08:00 98.1 85 16 150/62 (91) 98 06/26/19 08:00 86 06/26/19 07:00 98 Nasal Cannula 2.0 28 06/26/19 07:00 83 18 98 Nasal Cannula 2.0 28 06/26/19 05:40 138/59 06/26/19 05:39 70 138/59 06/26/19 04:00 71 06/26/19 04:00 97.7 78 24 138/59 (85) 98 06/26/19 00:00 98.2 80 18 143/82 (102) 98 06/26/19 00:00 78 06/25/19 21:19 162/77 06/25/19 21:18 80 162/77 06/25/19 21:00 Nasal Cannula 2.0 06/25/19 20:48 79 20 98 Nasal Cannula 2.0 28 06/25/19 20:48 98 Nasal Cannula 2.0 28 Intake and Output 06/25/19 06/26/19 19:00 07:00 Intake Total 720 ml 240 ml Balance 720 ml 240 ml Intake Oral 720 ml 240 ml # Voids 2 Laboratory Tests 06/26/19 05:55: White Blood Count 3.6L, Red Blood Count 2.89L, Hemoglobin 8.9L, Hematocrit 27.1L , Mean Corpuscular Volume 94, Mean Corpuscular Hemoglobin 30.8, Mean Corpuscular Hemoglobin Concent 32.9, Red Cell Distribution Width 15.3H, Platelet Count 198, Mean Platelet Volume 5.2L, Neutrophils (%) (Auto) 63.0, Lymphocytes (%) (Auto) 18.5L, Monocytes (%) (Auto) 14.4H, Eosinophils (%) (Auto ) 2.4, Basophils (%) (Auto) 1.7, Sodium Level 136, Potassium Level 4.3, Chloride Level 100, Carbon Dioxide Level 33H, Anion Gap 3L, Blood Urea Nitrogen 42H, Creatinine 5.6H, Estimat Glomerular Filtration Rate 7.5, Glucose Level 127H , Calcium Level 8.0L, Phosphorus Level 3.2 Height (Feet): 5 Height (Inches): 0.00 Weight (Pounds): 167 Neck: supple Cardiovascular: normal rate Respiratory/Chest: lungs clear Makenna Daniel MD Jun 26, 2019 20:42
--- NOTE | 2019-06-26 23:57 | Pulmonology Progress Note ---
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 Denies SOB, chest pain, no hemoptysis Less SOB, no wheeze No significant Pericardial Effussion on Echocardiogram Allergies: No Known Allergies Past Medical History: CKD, HD, Hypertension, CAD, Diabetes, HHD, Vertigo, previous GI bleed, Asthma All Other Systems: negative except mentioned in HPI Physical Exam Vital Signs Noted General Appearance: well appearing, no apparent distress, alert Head: normocephalic, atraumatic Eyes: bilateral eye PERRL, bilateral eye EOMI, pale ENT: uvula midline, moist mucus membranes Neck: supple, thyroid normal, no LN Respiratory: no wheeze, no respiratory distress, no retraction, no accessory muscle use Cardiovascular: normal peripheral pulses, regular rate, rhythm, HS1, HS2 normal ,no edema, no gallop, no murmur Gastrointestinal: non tender, soft, no guarding, no rebound Musculoskeletal: normal inspection Neurologic: alert, oriented x3 Skin: no rash, warm/dry Impression: Episode of generalized weakness CKD on HD CHF, Aortic stenosis, Pulmonary Hypertension Asthma Anemia Diabetes HTN - has order for PRN meds CAD Heart Disease Vertigo Plan: O2 PRN HHN PRN Wean Prednisone GI following Monitor labs Protonix PPX [employer] medications HD per Renal Echocardiogram CT Abdomen/Chest: Basal atelectasis versus congestion Subjective ROS Limited/Unobtainable: No Allergies: Coded Allergies: No Known Allergies (Unverified , 05/12/17) Objective Last 24 Hour Vital Signs Date Time Temp Pulse Resp B/P (MAP) Pulse Ox O2 Delivery O2 Flow Rate FiO2 06/26/19 22:26 80 166/80 06/26/19 22:26 166/80 06/26/19 21:00 Nasal Cannula 2.0 06/26/19 20:00 98.4 83 18 160/68 (98) 97 06/26/19 20:00 78 06/26/19 16:00 86 06/26/19 16:00 98.0 80 14 151/71 (97) 99 06/26/19 13:14 78 163/68 06/26/19 13:14 163/68 06/26/19 12:00 98.0 78 14 163/68 (99) 99 06/26/19 12:00 78 06/26/19 09:19 150/62 06/26/19 09:00 Nasal Cannula 2.0 06/26/19 08:00 98.1 85 16 150/62 (91) 98 06/26/19 08:00 86 06/26/19 07:00 98 Nasal Cannula 2.0 28 06/26/19 07:00 83 18 98 Nasal Cannula 2.0 28 06/26/19 05:40 138/59 06/26/19 05:39 70 138/59 06/26/19 04:00 71 06/26/19 04:00 97.7 78 24 138/59 (85) 98 06/26/19 00:00 98.2 80 18 143/82 (102) 98 06/26/19 00:00 78 Intake and Output 06/25/19 06/26/19 19:00 07:00 Intake Total 720 ml 240 ml Balance 720 ml 240 ml Intake Oral 720 ml 240 ml # Voids 2 Laboratory Tests 06/26/19 05:55: White Blood Count 3.6L, Red Blood Count 2.89L, Hemoglobin 8.9L, Hematocrit 27.1L , Mean Corpuscular Volume 94, Mean Corpuscular Hemoglobin 30.8, Mean Corpuscular Hemoglobin Concent 32.9, Red Cell Distribution Width 15.3H, Platelet Count 198, Mean Platelet Volume 5.2L, Neutrophils (%) (Auto) 63.0, Lymphocytes (%) (Auto) 18.5L, Monocytes (%) (Auto) 14.4H, Eosinophils (%) (Auto ) 2.4, Basophils (%) (Auto) 1.7, Sodium Level 136, Potassium Level 4.3, Chloride Level 100, Carbon Dioxide Level 33H, Anion Gap 3L, Blood Urea Nitrogen 42H, Creatinine 5.6H, Estimat Glomerular Filtration Rate 7.5, Glucose Level 127H , Calcium Level 8.0L, Phosphorus Level 3.2 Current Medications Medications (Trade) Dose Ordered Sig/Toya Route PRN Reason Start Time Stop Time Status Last Admin Dose Admin Acetaminophen (Tylenol) 650 mg Q6H PRN ORAL Mild Pain/Temp > 100.5 06/21/19 22:00 07/21/19 21:59 06/26/19 22:27 Albuterol/ Ipratropium (Albuterol/ Ipratropium) 3 ml Q4H PRN HHN Shortness of Breath 06/24/19 19:03 06/29/19 19:02 06/24/19 22:33 Atorvastatin Calcium (Lipitor) 10 mg BEDTIME ORAL 06/22/19 21:00 07/22/19 20:59 06/26/19 20:54 Calcium Acetate (Phoslo) 1,334 mg TID ORAL 06/22/19 09:00 07/22/19 08:59 06/26/19 17:02 Dextrose (Dextrose 50%) 25 ml Q30M PRN IV Hypoglycemia 06/21/19 21:45 07/21/19 21:44 Dextrose (Dextrose 50%) 50 ml Q30M PRN IV Hypoglycemia 06/21/19 21:45 07/21/19 21:44 Diltiazem HCl (Cardizem) 60 mg EVERY 8 HOURS ORAL 06/25/19 22:00 07/25/19 21:59 06/26/19 22:26 Docusate Sodium (Colace) 100 mg THREE TIMES A DAY ORAL 06/22/19 09:00 07/22/19 08:59 06/26/19 13:13 EZETIMIBE (Zetia) 10 mg DAILY ORAL 06/22/19 09:00 07/22/19 08:59 06/26/19 09:19 Gabapentin (Neurontin) 100 mg Q8HR ORAL 06/21/19 22:00 07/21/19 21:59 06/26/19 22:26 Hydralazine HCl (Apresoline) 10 mg Q4H PRN IV bp over 160 syst 06/21/19 19:30 07/21/19 19:29 06/22/19 13:13 Hydralazine HCl (Apresoline) 50 mg Q8HR ORAL 06/23/19 14:00 07/22/19 17:59 06/26/19 22:26 Insulin Aspart (NovoLOG) BEFORE MEALS AND HS SUBQ 06/22/19 06:30 07/22/19 06:29 06/26/19 20:54 Insulin Detemir (Levemir) 20 units Q24H SUBQ 06/23/19 06:30 07/23/19 06:29 06/26/19 05:45 Isosorbide Mononitrate (Imdur) 60 mg DAILY ORAL 06/22/19 09:00 07/22/19 08:59 06/26/19 09:19 Levothyroxine Sodium (Synthroid) 25 mcg DAILY@0630 ORAL 06/22/19 06:30 07/22/19 06:29 06/26/19 05:40 Levothyroxine Sodium (Synthroid) 112 mcg ACBREAKFAST ORAL 06/22/19 06:30 07/22/19 06:29 06/26/19 05:40 Liothyronine Sodium (Cytomel) 5 mcg DAILY ORAL 06/24/19 09:00 07/24/19 08:59 06/26/19 09:19 Montelukast Sodium (Singulair) 10 mg QPM ORAL 06/22/19 16:30 07/22/19 16:29 06/26/19 17:01 Ondansetron HCl (Zofran) 4 mg Q6H PRN IVP Nausea & Vomiting 06/21/19 21:57 07/21/19 21:56 Pantoprazole (Protonix) 40 mg EVERY 12 HOURS ORAL 06/23/19 21:00 07/23/19 20:59 06/26/19 20:53 Prednisone (predniSONE) 15 mg DAILY ORAL 06/27/19 09:00 07/26/19 08:59 Vitamin B Complex/ Vit C/Folic Acid (Nephrovite) 1 tab DAILY ORAL 06/22/19 09:00 07/22/19 08:59 06/26/19 09:19 Brandon Herbert MD Jun 26, 2019 23:57
[2019-06-27] VITALS (11 sets, daily range): BP systolic 114–183; BP diastolic 62–98
--- NOTE | 2019-06-27 03:19 | NUR ---
NURSE NOTES: Patient is asleep lying semi-welch's; resting comfortably. No signs of acute distress or pain noted at this time.
[2019-06-27] MEDS: Levemir Flexpen SUBQ SCH (05:56)
[2019-06-27] MEDS: NovoLOG Insulin Flexpen SUBQ SCH ×4 (05:57→21:09)
[2019-06-27] MEDS: HydrALAZINE 50mg tab ORAL SCH ×3 (05:58→22:14)
[2019-06-27] MEDS: dilTIAZem HCl 60mg tab ORAL SCH ×3 (05:58→22:14)
[2019-06-27] MEDS: Levothyroxine 25mcg tab ORAL SCH (05:58)
--- NOTE | 2019-06-27 06:01 | Hematology/Onc Progress Note ---
Assessment/Plan Assessment/Plan Assessment/Plan 1. Anemia due to underlying chronic disease. Have reviewed prior workup, ferritin is >1000, though percent saturation Tsat <30, but not recommended for further iron --> Continue to closely monitor. --> Transfuse if hgb <7 --> if ferritin <500, give iron suppl --> give epogen, has been started 3x a week --> as per renal --> monitor for gi bleed, gi consulted --> hgb trend 7.8-->9.3->8.9 2. Leukopenia likely reactive process v infection v from meds --> hepatitis and hiv prior negative --> neutropenic precautions if ANC <1500 --> trending stable --> imaging reviewed and no hsm / cirrhosis noted --> wbc 2.7-->3.4-->4-->3.6 --> ANC goal >1500 3. End-stage renal disease, on hemodialysis three times a week. --> renal consulted --> continue hd 4. History of coronary artery disease. --> cards reviewed --> diuresis prn 5. History of anemia due to low B12, low iron --> b12 is currently within normal limits --> reobtain q6mo 6. Dizziness and unsteady gait 7. DVt ppsx with SCDs Greatly appreciate consultation and Dw RN am. Subjective HEENT: Denies: no symptoms, eye pain, blurred vision, tearing, double vision, ear pain, ear discharge, nose pain, nose congestion, throat pain, throat swelling, mouth pain, mouth swelling, other Respiratory: Denies: no symptoms, cough, shortness of breath, SOB with excertion, SOB at rest, sputum, wheezing, other Gastrointestinal/Abdominal: Denies: no symptoms, abdomen distended, abdominal pain, black stools, tarry stools, blood in stool, constipated, diarrhea, difficulty swallowing, nausea, poor appetite, poor fluid intake, rectal bleeding , vomiting, other Neurologic/Psychiatric: Denies: no symptoms, anxiety, depressed, emotional problems, headache, numbness, paresthesia, pre-existing deficit, seizure, tingling, tremors, weakness, other Endocrine: Denies: no symptoms, excessive sweating, flushing, intolerance to cold, intolerance to heat, increased hunger, increased thirst, increased urine, unexplained weight gain, unexplained weight loss, other Hematologic/Lymphatic: Denies: no symptoms, anemia, easy bleeding, easy bruising, adenopathy, other Allergies: Coded Allergies: No Known Allergies (Unverified , 05/12/17) Subjective 06/23: on anti-htn as per Dr. Gatica, no bleeding, no f/c, hgb better 06/24: no events, to undergo hd today, no bleeding 06/26: transfused in recent, no complaints, on cardizem, seen renal and cards 06/27: sleeping comfortably, no events, no bleeding reported Objective Objective Current Medications Medications (Trade) Dose Ordered Sig/Toya Route PRN Reason Start Time Stop Time Status Last Admin Dose Admin Acetaminophen (Tylenol) 650 mg Q6H PRN ORAL Mild Pain/Temp > 100.5 06/21/19 22:00 07/21/19 21:59 06/26/19 22:27 Albuterol/ Ipratropium (Albuterol/ Ipratropium) 3 ml Q4H PRN HHN Shortness of Breath 06/24/19 19:03 06/29/19 19:02 06/24/19 22:33 Atorvastatin Calcium (Lipitor) 10 mg BEDTIME ORAL 06/22/19 21:00 07/22/19 20:59 06/26/19 20:54 Calcium Acetate (Phoslo) 1,334 mg TID ORAL 06/22/19 09:00 07/22/19 08:59 06/26/19 17:02 Dextrose (Dextrose 50%) 25 ml Q30M PRN IV Hypoglycemia 06/21/19 21:45 07/21/19 21:44 Dextrose (Dextrose 50%) 50 ml Q30M PRN IV Hypoglycemia 06/21/19 21:45 07/21/19 21:44 Diltiazem HCl (Cardizem) 60 mg EVERY 8 HOURS ORAL 06/25/19 22:00 07/25/19 21:59 06/27/19 05:58 Docusate Sodium (Colace) 100 mg THREE TIMES A DAY ORAL 06/22/19 09:00 07/22/19 08:59 06/26/19 13:13 EZETIMIBE (Zetia) 10 mg DAILY ORAL 06/22/19 09:00 07/22/19 08:59 06/26/19 09:19 Gabapentin (Neurontin) 100 mg Q8HR ORAL 06/21/19 22:00 07/21/19 21:59 06/27/19 05:58 Hydralazine HCl (Apresoline) 10 mg Q4H PRN IV bp over 160 syst 06/21/19 19:30 07/21/19 19:29 06/22/19 13:13 Hydralazine HCl (Apresoline) 50 mg Q8HR ORAL 06/23/19 14:00 07/22/19 17:59 06/27/19 05:58 Insulin Aspart (NovoLOG) BEFORE MEALS AND HS SUBQ 06/22/19 06:30 07/22/19 06:29 06/27/19 05:57 Insulin Detemir (Levemir) 20 units Q24H SUBQ 06/23/19 06:30 07/23/19 06:29 06/27/19 05:56 Isosorbide Mononitrate (Imdur) 60 mg DAILY ORAL 06/22/19 09:00 07/22/19 08:59 06/26/19 09:19 Levothyroxine Sodium (Synthroid) 25 mcg DAILY@0630 ORAL 06/22/19 06:30 07/22/19 06:29 06/27/19 05:58 Levothyroxine Sodium (Synthroid) 112 mcg ACBREAKFAST ORAL 06/22/19 06:30 07/22/19 06:29 06/27/19 05:58 Liothyronine Sodium (Cytomel) 5 mcg DAILY ORAL 06/24/19 09:00 07/24/19 08:59 06/26/19 09:19 Montelukast Sodium (Singulair) 10 mg QPM ORAL 06/22/19 16:30 07/22/19 16:29 06/26/19 17:01 Ondansetron HCl (Zofran) 4 mg Q6H PRN IVP Nausea & Vomiting 06/21/19 21:57 07/21/19 21:56 Pantoprazole (Protonix) 40 mg EVERY 12 HOURS ORAL 06/23/19 21:00 07/23/19 20:59 06/26/19 20:53 Prednisone (predniSONE) 15 mg DAILY ORAL 06/27/19 09:00 07/26/19 08:59 Vitamin B Complex/ Vit C/Folic Acid (Nephrovite) 1 tab DAILY ORAL 06/22/19 09:00 07/22/19 08:59 06/26/19 09:19 Last 24 Hour Vital Signs Date Time Temp Pulse Resp B/P (MAP) Pulse Ox O2 Delivery O2 Flow Rate FiO2 06/27/19 05:58 77 164/73 06/27/19 05:58 164/73 06/27/19 04:00 98.1 77 18 164/73 (103) 97 06/27/19 04:00 77 06/27/19 00:00 82 06/27/19 00:00 98.3 79 20 165/73 (103) 97 06/26/19 22:26 80 166/80 06/26/19 22:26 166/80 06/26/19 21:00 Nasal Cannula 2.0 06/26/19 20:00 98.4 83 18 160/68 (98) 97 06/26/19 20:00 78 06/26/19 19:00 98 Room Air 21 06/26/19 19:00 80 18 97 Room Air 21 06/26/19 16:00 86 06/26/19 16:00 98.0 80 14 151/71 (97) 99 06/26/19 13:14 78 163/68 06/26/19 13:14 163/68 06/26/19 12:00 98.0 78 14 163/68 (99) 99 06/26/19 12:00 78 06/26/19 09:19 150/62 06/26/19 09:00 Nasal Cannula 2.0 06/26/19 08:00 98.1 85 16 150/62 (91) 98 06/26/19 08:00 86 06/26/19 07:00 98 Nasal Cannula 2.0 28 06/26/19 07:00 83 18 98 Nasal Cannula 2.0 28 06/26/19 05:40 138/59 06/26/19 05:39 70 138/59 06/26/19 04:00 71 06/26/19 04:00 97.7 78 24 138/59 (85) 98 06/26/19 00:00 98.2 80 18 143/82 (102) 98 06/26/19 00:00 78 06/25/19 21:19 162/77 06/25/19 21:18 80 162/77 06/25/19 21:00 Nasal Cannula 2.0 06/25/19 20:48 79 20 98 Nasal Cannula 2.0 28 06/25/19 20:48 98 Nasal Cannula 2.0 28 06/25/19 20:00 98.4 80 18 160/77 (104) 98 06/25/19 20:00 78 06/25/19 16:00 81 06/25/19 16:00 97.3 87 20 143/81 (101) 97 06/25/19 15:00 147/89 06/25/19 12:00 98.0 86 20 147/89 (108) 96 06/25/19 12:00 85 06/25/19 09:00 Nasal Cannula 2.0 06/25/19 08:50 95 159/72 06/25/19 08:50 159/72 06/25/19 08:00 97.2 95 20 159/72 (101) 97 06/25/19 08:00 99 06/25/19 07:00 82 22 100 Nasal Cannula 2.0 28 06/25/19 07:00 100 Nasal Cannula 2.0 28 Intake and Output 06/26/19 06/27/19 19:00 07:00 Intake Total 400 ml Balance 400 ml Intake Oral 400 ml # Voids 1 Labs Test 06/25/19 06:11 06/26/19 05:55 White Blood Count 5.3 K/UL (4.8-10.8) 3.6 K/UL (4.8-10.8) Red Blood Count 3.14 M/UL (4.20-5.40) 2.89 M/UL (4.20-5.40) Hemoglobin 9.8 G/DL (12.0-16.0) 8.9 G/DL (12.0-16.0) Hematocrit 29.2 % (37.0-47.0) 27.1 % (37.0-47.0) Mean Corpuscular Volume 93 FL (80-99) 94 FL (80-99) Mean Corpuscular Hemoglobin 31.2 PG (27.0-31.0) 30.8 PG (27.0-31.0) Mean Corpuscular Hemoglobin Concent 33.5 G/DL (32.0-36.0) 32.9 G/DL (32.0-36.0) Red Cell Distribution Width 15.2 % (11.6-14.8) 15.3 % (11.6-14.8) Platelet Count 202 K/UL (150-450) 198 K/UL (150-450) Mean Platelet Volume 5.1 FL (6.5-10.1) 5.2 FL (6.5-10.1) Neutrophils (%) (Auto) % (45.0-75.0) 63.0 % (45.0-75.0) Lymphocytes (%) (Auto) % (20.0-45.0) 18.5 % (20.0-45.0) Monocytes (%) (Auto) % (1.0-10.0) 14.4 % (1.0-10.0) Eosinophils (%) (Auto) % (0.0-3.0) 2.4 % (0.0-3.0) Basophils (%) (Auto) % (0.0-2.0) 1.7 % (0.0-2.0) Differential Total Cells Counted 100 Neutrophils % (Manual) 93 % (45-75) Lymphocytes % (Manual) 5 % (20-45) Monocytes % (Manual) 2 % (1-10) Eosinophils % (Manual) 0 % (0-3) Basophils % (Manual) 0 % (0-2) Band Neutrophils 0 % (0-8) Platelet Estimate Adequate Platelet Morphology Normal Hypochromasia 2+ Anisocytosis 1+ Sodium Level 134 MMOL/L (136-145) 136 MMOL/L (136-145) Potassium Level 4.4 MMOL/L (3.5-5.1) 4.3 MMOL/L (3.5-5.1) Chloride Level 97 MMOL/L (98-107) 100 MMOL/L (98-107) Carbon Dioxide Level 30 MMOL/L (21-32) 33 MMOL/L (21-32) Anion Gap 7 mmol/L (5-15) 3 mmol/L (5-15) Blood Urea Nitrogen 26 mg/dL (7-18) 42 mg/dL (7-18) Creatinine 4.4 MG/DL (0.55-1.30) 5.6 MG/DL (0.55-1.30) Estimat Glomerular Filtration Rate 9.9 mL/min (>60) 7.5 mL/min (>60) Glucose Level 209 MG/DL (74-106) 127 MG/DL (74-106) Calcium Level 8.0 MG/DL (8.5-10.1) 8.0 MG/DL (8.5-10.1) Phosphorus Level 2.7 MG/DL (2.5-4.9) 3.2 MG/DL (2.5-4.9) Magnesium Level 2.0 MG/DL (1.8-2.4) Total Bilirubin 0.8 MG/DL (0.2-1.0) Aspartate Amino Transf (AST/SGOT) 18 U/L (15-37) Alanine Aminotransferase (ALT/SGPT) 11 U/L (12-78) Alkaline Phosphatase 103 U/L (46-116) C-Reactive Protein, Quantitative 4.3 mg/dL (0.00-0.90) Pro-B-Type Natriuretic Peptide > 85256 pg/mL (0-125) Total Protein 7.6 G/DL (6.4-8.2) Albumin 3.7 G/DL (3.4-5.0) Globulin 3.9 g/dL Albumin/Globulin Ratio 0.9 (1.0-2.7) Height (Feet): 5 Height (Inches): 0.00 Weight (Pounds): 167 Objective PHYSICAL EXAMINATION: VITAL SIGNS: Reviewed. GENERAL: No distress. PULMONARY: Decreased breath sounds. ++ nc CARDIOVASCULAR: Regular rate. No S3 or S4. ABDOMEN: Soft, nontender, and nondistended. EXTREMITIES: No cyanosis, swelling, or edema. ++ Left CATS Carl Daniels MD Jun 27, 2019 06:01
[2019-06-27 06:30] LABS: BASOPHILS % (AUTO) 1.3 % (0.0-2.0); EOSINOPHILS % (AUTO) 0.7 % (0.0-3.0); HEMATOCRIT 27.2 % (37.0-47.0); HEMOGLOBIN 8.9 G/DL (12.0-16.0); LYMPHOCYTES % (AUTO) 12.8 % (20.0-45.0); MEAN CORPUSCULAR VOLUME 94 FL (80-99); MONOCYTES % (AUTO) 13.6 % (1.0-10.0); NEUTROPHILS % (AUTO) 71.5 % (45.0-75.0); PLATELET COUNT 186 K/UL (150-450); RED BLOOD COUNT 2.89 M/UL (4.20-5.40); RED CELL DISTRIBUTION WIDTH 15.1 % (11.6-14.8); WHITE BLOOD COUNT 3.7 K/UL (4.8-10.8)
[2019-06-27 06:42] LABS: ANION GAP 10 mmol/L (5-15); BLOOD UREA NITROGEN 60 mg/dL (7-18); CALCIUM 8.2 MG/DL (8.5-10.1); CARBON DIOXIDE 28 MMOL/L (21-32); CHLORIDE 98 MMOL/L (98-107); CREATININE 6.7 MG/DL (0.55-1.30); POTASSIUM 4.8 MMOL/L (3.5-5.1); SODIUM 135 MMOL/L (136-145)
--- NOTE | 2019-06-27 07:00 | NUR ---
HAND-OFF: Report given to SIDNEY Barger. Patient is awake lying semi-welch's; resting comfortably. In stable condition. Endorsed to oncoming shift RN regarding patient's hemodialysis procedure later today; verbalized understanding.
--- NOTE | 2019-06-27 07:05 | NUR ---
NURSE NOTES: Received report from Darcie LITTLE. Pt in bed alert and oriented x4. No c/o pain. No SOB noted. site in R wrist 24G SL patent and asymptomatic. Noted bruit and thrill ON L arm AV shunt. Pt ambulatated steady without assist. Bed on lowest position and locked. No SVT reported during previous shift. Call light within easy reach. Will continue to plan of care.
[2019-06-27] MEDS: Imdur 30mg tab ORAL SCH (09:00)
[2019-06-27] MEDS: Docusate 100mg cap ORAL SCH ×3 (09:00→17:49)
[2019-06-27] MEDS: Liothyronine 5mcg tab ORAL SCH (09:09)
[2019-06-27] MEDS: Nephrovite tab (Rena-Vite) ORAL SCH (09:10)
[2019-06-27] MEDS: Calcium Acetate 667mg Tab ORAL SCH ×3 (09:10→17:48)
--- NOTE | 2019-06-27 09:29 | Cardiac Electrophysiology PN ---
Assessment/Plan Assessment/Plan 1. Hypertension. On Cardizem 60 tid , Imdur 60 mg daily, Hydralazine 50 q 8hr and HD 2. Hyperlipidemia, on Lipitor. 3. End-stage renal disease, on hemodialysis. 4. Anemia. Further evaluation by Dr. Daniels. 5. Pulmonary hypertension.On HD 6. COPD. Solumedrol changed to Prednisone PO 7. Recurrent SVT 06/24/19 and 06/25/19 . On Cardizem 60 tid no recurrence DW RN Subjective Subjective Alert in NAD. No CP or SOB. No SVT HD pending today before DC Objective Last 24 Hour Vital Signs Date Time Temp Pulse Resp B/P (MAP) Pulse Ox O2 Delivery O2 Flow Rate FiO2 06/27/19 08:00 98.1 78 20 114/69 (84) 100 06/27/19 05:58 77 164/73 06/27/19 05:58 164/73 06/27/19 04:00 98.1 77 18 164/73 (103) 97 06/27/19 04:00 77 06/27/19 00:00 82 06/27/19 00:00 98.3 79 20 165/73 (103) 97 06/26/19 22:26 80 166/80 06/26/19 22:26 166/80 06/26/19 21:00 Nasal Cannula 2.0 06/26/19 20:00 98.4 83 18 160/68 (98) 97 06/26/19 20:00 78 06/26/19 19:00 98 Room Air 21 06/26/19 19:00 80 18 97 Room Air 21 06/26/19 16:00 86 06/26/19 16:00 98.0 80 14 151/71 (97) 99 06/26/19 13:14 78 163/68 06/26/19 13:14 163/68 06/26/19 12:00 98.0 78 14 163/68 (99) 99 06/26/19 12:00 78 Intake and Output 06/26/19 06/27/19 19:00 07:00 Intake Total 400 ml 240 ml Balance 400 ml 240 ml Intake Oral 400 ml 240 ml # Voids 1 2 Laboratory Tests Test 06/27/19 05:50 White Blood Count 3.7 K/UL (4.8-10.8) L Red Blood Count 2.89 M/UL (4.20-5.40) L Hemoglobin 8.9 G/DL (12.0-16.0) L Hematocrit 27.2 % (37.0-47.0) L Mean Corpuscular Volume 94 FL (80-99) Mean Corpuscular Hemoglobin 30.9 PG (27.0-31.0) Mean Corpuscular Hemoglobin Concent 32.9 G/DL (32.0-36.0) Red Cell Distribution Width 15.1 % (11.6-14.8) H Platelet Count 186 K/UL (150-450) Mean Platelet Volume 4.9 FL (6.5-10.1) L Neutrophils (%) (Auto) 71.5 % (45.0-75.0) Lymphocytes (%) (Auto) 12.8 % (20.0-45.0) L Monocytes (%) (Auto) 13.6 % (1.0-10.0) H Eosinophils (%) (Auto) 0.7 % (0.0-3.0) Basophils (%) (Auto) 1.3 % (0.0-2.0) Sodium Level 135 MMOL/L (136-145) L Potassium Level 4.8 MMOL/L (3.5-5.1) Chloride Level 98 MMOL/L (98-107) Carbon Dioxide Level 28 MMOL/L (21-32) Anion Gap 10 mmol/L (5-15) Blood Urea Nitrogen 60 mg/dL (7-18) H Creatinine 6.7 MG/DL (0.55-1.30) H Estimat Glomerular Filtration Rate 6.1 mL/min (>60) Glucose Level 205 MG/DL (74-106) H Calcium Level 8.2 MG/DL (8.5-10.1) L Objective HEAD AND NECK: No JVD or carotid bruits. LUNGS: Decreased breath sounds. CARDIOVASCULAR: Regular S1 and S2 with no gallops. A 2/6 systolic murmur. ABDOMEN: Soft. EXTREMITIES: No pitting edema.Dialysis access Left Arm AV shunt Zev Gatica MD Jun 27, 2019 09:29
--- NOTE | 2019-06-27 10:20 | NUR ---
DISCHARGE PLANNED: PATIENT IS MEDICALLY CLEARED FOR DISCHARGE AFTER HD RETURNING TO [facility] T: [phone] FOR NURSE TO NURSE REPORT ROOM# [address] [facility] WILL BE PLACED ON "WILL CALL" PLEASE INFORM PATIENT DAUGHTER COREEN OF DISCHARGE T: [phone]
--- NOTE | 2019-06-27 12:23 | Nephrology Progress Note ---
Assessment/Plan Problem List: (1) ESRD (end stage renal disease) (2) Hypertensive kidney disease (3) Anemia in chronic kidney disease (CKD) (4) Episode of generalized weakness Assessment h/o GI bleed present with melena, worsening Anemia ESRD M W Fr h/o Pulm Edema DM HTN Anemia B12 and Iron def CAD . Plan on cardiazem now HD as needed, scheduled 06/24 next 06/27 Rythme adjustment per cardio Transfused BP and BS check adjust BP meds Previously 2D Echo Ej Fx 50 % PACO: Hepatosplenomegaly. Question of medical renal disease. Small nonobstructive stone in the left kidney suspected. Cholelithiasis Subjective ROS Limited/Unobtainable: No Constitutional: Reports: malaise Objective Objective Last 24 Hour Vital Signs Date Time Temp Pulse Resp B/P (MAP) Pulse Ox O2 Delivery O2 Flow Rate FiO2 06/27/19 12:00 97.8 74 20 152/70 (97) 98 06/27/19 09:00 Nasal Cannula 2.0 06/27/19 09:00 114/69 06/27/19 08:00 98.1 78 20 114/69 (84) 100 06/27/19 08:00 78 06/27/19 05:58 77 164/73 06/27/19 05:58 164/73 06/27/19 04:00 98.1 77 18 164/73 (103) 97 06/27/19 04:00 77 06/27/19 00:00 82 06/27/19 00:00 98.3 79 20 165/73 (103) 97 06/26/19 22:26 80 166/80 06/26/19 22:26 166/80 06/26/19 21:00 Nasal Cannula 2.0 06/26/19 20:00 98.4 83 18 160/68 (98) 97 06/26/19 20:00 78 06/26/19 19:00 98 Room Air 21 06/26/19 19:00 80 18 97 Room Air 21 06/26/19 16:00 86 06/26/19 16:00 98.0 80 14 151/71 (97) 99 06/26/19 13:14 78 163/68 06/26/19 13:14 163/68 Intake and Output 06/26/19 06/27/19 18:59 06:59 Intake Total 400 ml 240 ml Balance 400 ml 240 ml Intake Oral 400 ml 240 ml # Voids 1 2 Current Medications Medications (Trade) Dose Ordered Sig/Toya Route PRN Reason Start Time Stop Time Status Last Admin Dose Admin Acetaminophen (Tylenol) 650 mg Q6H PRN ORAL Mild Pain/Temp > 100.5 06/21/19 22:00 07/21/19 21:59 06/26/19 22:27 Albuterol/ Ipratropium (Albuterol/ Ipratropium) 3 ml Q4H PRN HHN Shortness of Breath 06/24/19 19:03 06/29/19 19:02 06/24/19 22:33 Atorvastatin Calcium (Lipitor) 10 mg BEDTIME ORAL 06/22/19 21:00 07/22/19 20:59 06/26/19 20:54 Calcium Acetate (Phoslo) 1,334 mg TID ORAL 06/22/19 09:00 07/22/19 08:59 06/27/19 09:10 Dextrose (Dextrose 50%) 25 ml Q30M PRN IV Hypoglycemia 06/21/19 21:45 07/21/19 21:44 Dextrose (Dextrose 50%) 50 ml Q30M PRN IV Hypoglycemia 06/21/19 21:45 07/21/19 21:44 Diltiazem HCl (Cardizem) 60 mg EVERY 8 HOURS ORAL 06/25/19 22:00 07/25/19 21:59 06/27/19 05:58 Docusate Sodium (Colace) 100 mg THREE TIMES A DAY ORAL 06/22/19 09:00 07/22/19 08:59 06/26/19 13:13 EZETIMIBE (Zetia) 10 mg DAILY ORAL 06/22/19 09:00 07/22/19 08:59 06/27/19 09:10 Gabapentin (Neurontin) 100 mg Q8HR ORAL 06/21/19 22:00 07/21/19 21:59 06/27/19 05:58 Hydralazine HCl (Apresoline) 10 mg Q4H PRN IV bp over 160 syst 06/21/19 19:30 07/21/19 19:29 06/22/19 13:13 Hydralazine HCl (Apresoline) 50 mg Q8HR ORAL 06/23/19 14:00 07/22/19 17:59 06/27/19 05:58 Insulin Aspart (NovoLOG) BEFORE MEALS AND HS SUBQ 06/22/19 06:30 07/22/19 06:29 06/27/19 05:57 Insulin Detemir (Levemir) 20 units Q24H SUBQ 06/23/19 06:30 07/23/19 06:29 06/27/19 05:56 Isosorbide Mononitrate (Imdur) 60 mg DAILY ORAL 06/22/19 09:00 07/22/19 08:59 06/26/19 09:19 Levothyroxine Sodium (Synthroid) 25 mcg DAILY@0630 ORAL 06/22/19 06:30 07/22/19 06:29 06/27/19 05:58 Levothyroxine Sodium (Synthroid) 112 mcg ACBREAKFAST ORAL 06/22/19 06:30 07/22/19 06:29 06/27/19 05:58 Liothyronine Sodium (Cytomel) 5 mcg DAILY ORAL 06/24/19 09:00 07/24/19 08:59 06/27/19 09:09 Montelukast Sodium (Singulair) 10 mg QPM ORAL 06/22/19 16:30 07/22/19 16:29 06/26/19 17:01 Ondansetron HCl (Zofran) 4 mg Q6H PRN IVP Nausea & Vomiting 06/21/19 21:57 07/21/19 21:56 Pantoprazole (Protonix) 40 mg EVERY 12 HOURS ORAL 06/23/19 21:00 07/23/19 20:59 06/27/19 09:10 Prednisone (predniSONE) 15 mg DAILY ORAL 06/27/19 09:00 07/26/19 08:59 06/27/19 09:09 Vitamin B Complex/ Vit C/Folic Acid (Nephrovite) 1 tab DAILY ORAL 06/22/19 09:00 07/22/19 08:59 06/27/19 09:10 Laboratory Tests 06/27/19 05:50: White Blood Count 3.7L, Red Blood Count 2.89L, Hemoglobin 8.9L, Hematocrit 27.2L , Mean Corpuscular Volume 94, Mean Corpuscular Hemoglobin 30.9, Mean Corpuscular Hemoglobin Concent 32.9, Red Cell Distribution Width 15.1H, Platelet Count 186, Mean Platelet Volume 4.9L, Neutrophils (%) (Auto) 71.5, Lymphocytes (%) (Auto) 12.8L, Monocytes (%) (Auto) 13.6H, Eosinophils (%) (Auto ) 0.7, Basophils (%) (Auto) 1.3, Sodium Level 135L, Potassium Level 4.8, Chloride Level 98, Carbon Dioxide Level 28, Anion Gap 10, Blood Urea Nitrogen 60H, Creatinine 6.7H, Estimat Glomerular Filtration Rate 6.1, Glucose Level 205H , Calcium Level 8.2L Height (Feet): 5 Height (Inches): 0.00 Weight (Pounds): 171 General Appearance: no apparent distress Cardiovascular: normal rate Respiratory/Chest: decreased breath sounds Abdomen: soft Francis Falk MD Jun 27, 2019 12:23
--- NOTE | 2019-06-27 15:00 | NUR ---
NURSE NOTES: Dialysis done and 2L fluid removed. Report given to [email or web address]
--- NOTE | 2019-06-27 16:40 | NUR ---
NURSE NOTES: [facility] came to [facility] the patient. Last blood pressure checked with 180/80 and per ambulance personnels, they are unable to take the patient out now due to high blood pressure. Ashely LITTLE @[facility] vega regan called to update information. Put the patient on will-call for discharge later today.
--- NOTE | 2019-06-27 16:40 | Pulmonology Progress Note ---
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 Denies SOB, chest pain, no hemoptysis Less SOB, no wheeze No significant Pericardial Effussion on Echocardiogram Allergies: No Known Allergies Past Medical History: CKD, HD, Hypertension, CAD, Diabetes, HHD, Vertigo, previous GI bleed, Asthma All Other Systems: negative except mentioned in HPI Physical Exam Vital Signs Noted General Appearance: well appearing, no apparent distress, alert Head: normocephalic, atraumatic Eyes: bilateral eye PERRL, bilateral eye EOMI, pale ENT: uvula midline, moist mucus membranes Neck: supple, thyroid normal, no LN Respiratory: no wheeze, no respiratory distress, no retraction, no accessory muscle use Cardiovascular: normal peripheral pulses, regular rate, rhythm, HS1, HS2 normal ,no edema, no gallop, no murmur Gastrointestinal: non tender, soft, no guarding, no rebound Musculoskeletal: normal inspection Neurologic: alert, oriented x3 Skin: no rash, warm/dry Impression: Episode of generalized weakness CKD on HD CHF, Aortic stenosis, Pulmonary Hypertension Asthma Anemia Diabetes HTN - has order for PRN meds CAD Heart Disease Vertigo Plan: O2 PRN HHN PRN Wean Prednisone GI following Monitor labs Protonix PPX ADMITTING REPRESENTATIVE medications HD per Renal Echocardiogram CT Abdomen/Chest: Basal atelectasis versus congestion Subjective ROS Limited/Unobtainable: No Allergies: Coded Allergies: No Known Allergies (Unverified , 05/12/17) Objective Last 24 Hour Vital Signs Date Time Temp Pulse Resp B/P (MAP) Pulse Ox O2 Delivery O2 Flow Rate FiO2 06/27/19 15:33 183/77 06/27/19 15:30 97.8 86 20 183/77 (112) 98 06/27/19 13:52 71 152/70 06/27/19 13:51 152/70 06/27/19 12:00 71 06/27/19 12:00 97.8 74 20 152/70 (97) 98 06/27/19 09:00 Nasal Cannula 2.0 06/27/19 09:00 114/69 06/27/19 08:00 98.1 78 20 114/69 (84) 100 06/27/19 08:00 78 06/27/19 05:58 77 164/73 06/27/19 05:58 164/73 06/27/19 04:00 98.1 77 18 164/73 (103) 97 06/27/19 04:00 77 06/27/19 00:00 82 06/27/19 00:00 98.3 79 20 165/73 (103) 97 06/26/19 22:26 80 166/80 06/26/19 22:26 166/80 06/26/19 21:00 Nasal Cannula 2.0 06/26/19 20:00 98.4 83 18 160/68 (98) 97 06/26/19 20:00 78 06/26/19 19:00 98 Room Air 21 06/26/19 19:00 80 18 97 Room Air 21 Intake and Output 06/26/19 06/27/19 19:00 07:00 Intake Total 400 ml 240 ml Balance 400 ml 240 ml Intake Oral 400 ml 240 ml # Voids 1 2 Laboratory Tests 06/27/19 05:50: White Blood Count 3.7L, Red Blood Count 2.89L, Hemoglobin 8.9L, Hematocrit 27.2L , Mean Corpuscular Volume 94, Mean Corpuscular Hemoglobin 30.9, Mean Corpuscular Hemoglobin Concent 32.9, Red Cell Distribution Width 15.1H, Platelet Count 186, Mean Platelet Volume 4.9L, Neutrophils (%) (Auto) 71.5, Lymphocytes (%) (Auto) 12.8L, Monocytes (%) (Auto) 13.6H, Eosinophils (%) (Auto ) 0.7, Basophils (%) (Auto) 1.3, Sodium Level 135L, Potassium Level 4.8, Chloride Level 98, Carbon Dioxide Level 28, Anion Gap 10, Blood Urea Nitrogen 60H, Creatinine 6.7H, Estimat Glomerular Filtration Rate 6.1, Glucose Level 205H , Calcium Level 8.2L Current Medications Medications (Trade) Dose Ordered Sig/Toya Route PRN Reason Start Time Stop Time Status Last Admin Dose Admin Acetaminophen (Tylenol) 650 mg Q6H PRN ORAL Mild Pain/Temp > 100.5 06/21/19 22:00 07/21/19 21:59 06/26/19 22:27 Albuterol/ Ipratropium (Albuterol/ Ipratropium) 3 ml Q4H PRN HHN Shortness of Breath 06/24/19 19:03 06/29/19 19:02 06/24/19 22:33 Atorvastatin Calcium (Lipitor) 10 mg BEDTIME ORAL 06/22/19 21:00 07/22/19 20:59 06/26/19 20:54 Calcium Acetate (Phoslo) 1,334 mg TID ORAL 06/22/19 09:00 07/22/19 08:59 06/27/19 13:51 Dextrose (Dextrose 50%) 25 ml Q30M PRN IV Hypoglycemia 06/21/19 21:45 07/21/19 21:44 Dextrose (Dextrose 50%) 50 ml Q30M PRN IV Hypoglycemia 06/21/19 21:45 07/21/19 21:44 Diltiazem HCl (Cardizem) 60 mg EVERY 8 HOURS ORAL 06/25/19 22:00 07/25/19 21:59 06/27/19 13:52 Docusate Sodium (Colace) 100 mg THREE TIMES A DAY ORAL 06/22/19 09:00 07/22/19 08:59 06/26/19 13:13 EZETIMIBE (Zetia) 10 mg DAILY ORAL 06/22/19 09:00 07/22/19 08:59 06/27/19 09:10 Gabapentin (Neurontin) 100 mg Q8HR ORAL 06/21/19 22:00 07/21/19 21:59 06/27/19 13:51 Hydralazine HCl (Apresoline) 10 mg Q4H PRN IV bp over 160 syst 06/21/19 19:30 07/21/19 19:29 06/27/19 15:33 Hydralazine HCl (Apresoline) 50 mg Q8HR ORAL 06/23/19 14:00 07/22/19 17:59 06/27/19 13:51 Insulin Aspart (NovoLOG) BEFORE MEALS AND HS SUBQ 06/22/19 06:30 07/22/19 06:29 06/27/19 05:57 Insulin Detemir (Levemir) 20 units Q24H SUBQ 06/23/19 06:30 07/23/19 06:29 06/27/19 05:56 Isosorbide Mononitrate (Imdur) 60 mg DAILY ORAL 06/22/19 09:00 07/22/19 08:59 06/26/19 09:19 Levothyroxine Sodium (Synthroid) 25 mcg DAILY@0630 ORAL 06/22/19 06:30 07/22/19 06:29 06/27/19 05:58 Levothyroxine Sodium (Synthroid) 112 mcg ACBREAKFAST ORAL 06/22/19 06:30 07/22/19 06:29 06/27/19 05:58 Liothyronine Sodium (Cytomel) 5 mcg DAILY ORAL 06/24/19 09:00 07/24/19 08:59 06/27/19 09:09 Montelukast Sodium (Singulair) 10 mg QPM ORAL 06/22/19 16:30 07/22/19 16:29 06/26/19 17:01 Ondansetron HCl (Zofran) 4 mg Q6H PRN IVP Nausea & Vomiting 06/21/19 21:57 07/21/19 21:56 Pantoprazole (Protonix) 40 mg EVERY 12 HOURS ORAL 06/23/19 21:00 07/23/19 20:59 06/27/19 09:10 Prednisone (predniSONE) 5 mg ONCE ORAL 06/29/19 09:00 06/29/19 10:00 Prednisone (predniSONE) 10 mg ONCE ORAL 06/28/19 09:00 06/28/19 10:00 Vitamin B Complex/ Vit C/Folic Acid (Nephrovite) 1 tab DAILY ORAL 06/22/19 09:00 07/22/19 08:59 06/27/19 09:10 Brandon Herbert MD Jun 27, 2019 16:40
[2019-06-27] MEDS: Montelukast 10mg tablet ORAL SCH (17:50)
--- NOTE | 2019-06-27 19:11 | NUR ---
HAND-OFF: Report given to Yamilex RN. Pt remains stable.
--- NOTE | 2019-06-27 20:01 | General Progress Note ---
Assessment/Plan Problem List: (1) Hypertension ICD Codes: I10 - Essential (primary) hypertension SNOMED: 09570623 (2) Diabetic nephropathy with proteinuria ICD Codes: E11.21 - Type 2 diabetes mellitus with diabetic nephropathy SNOMED: 25619877, 491862017 (3) Renal failure ICD Codes: N19 - Unspecified kidney failure SNOMED: 03988599 (4) Black tarry stools ICD Codes: K92.1 - Melena SNOMED: 371419417 (5) ESRD (end stage renal disease) ICD Codes: N18.6 - End stage renal disease SNOMED: 02023152 (6) Hypertensive kidney disease ICD Codes: I12.9 - Hypertensive chronic kidney disease with stage 1 through stage 4 chronic kidney disease, or unspecified chronic kidney disease SNOMED: 76394850 (7) Anemia in chronic kidney disease (CKD) ICD Codes: N18.9 - Chronic kidney disease, unspecified; D63.1 - Anemia in chronic kidney disease SNOMED: 590301611 Status: progressing Assessment/Plan: pancytopenia esrd on hd anemia dc to snf see dc summary for details Subjective ROS Limited/Unobtainable: Yes Allergies: Coded Allergies: No Known Allergies (Unverified , 05/12/17) Objective Last 24 Hour Vital Signs Date Time Temp Pulse Resp B/P (MAP) Pulse Ox O2 Delivery O2 Flow Rate FiO2 06/27/19 18:42 168/72 (104) 06/27/19 18:20 98.1 79 20 177/80 (112) 100 06/27/19 17:48 183/77 06/27/19 16:00 98.1 83 20 183/77 (112) 100 06/27/19 15:33 183/77 06/27/19 15:30 97.8 86 20 183/77 (112) 98 06/27/19 13:52 71 152/70 06/27/19 13:51 152/70 06/27/19 12:00 71 06/27/19 12:00 97.8 74 20 152/70 (97) 98 06/27/19 09:00 Nasal Cannula 2.0 06/27/19 09:00 114/69 06/27/19 08:00 98.1 78 20 114/69 (84) 100 06/27/19 08:00 78 06/27/19 05:58 77 164/73 06/27/19 05:58 164/73 06/27/19 04:00 98.1 77 18 164/73 (103) 97 06/27/19 04:00 77 06/27/19 00:00 82 06/27/19 00:00 98.3 79 20 165/73 (103) 97 06/26/19 22:26 80 166/80 06/26/19 22:26 166/80 06/26/19 21:00 Nasal Cannula 2.0 Intake and Output 06/26/19 06/27/19 19:00 07:00 Intake Total 400 ml 240 ml Balance 400 ml 240 ml Intake Oral 400 ml 240 ml # Voids 1 2 Laboratory Tests 06/27/19 05:50: White Blood Count 3.7L, Red Blood Count 2.89L, Hemoglobin 8.9L, Hematocrit 27.2L , Mean Corpuscular Volume 94, Mean Corpuscular Hemoglobin 30.9, Mean Corpuscular Hemoglobin Concent 32.9, Red Cell Distribution Width 15.1H, Platelet Count 186, Mean Platelet Volume 4.9L, Neutrophils (%) (Auto) 71.5, Lymphocytes (%) (Auto) 12.8L, Monocytes (%) (Auto) 13.6H, Eosinophils (%) (Auto ) 0.7, Basophils (%) (Auto) 1.3, Sodium Level 135L, Potassium Level 4.8, Chloride Level 98, Carbon Dioxide Level 28, Anion Gap 10, Blood Urea Nitrogen 60H, Creatinine 6.7H, Estimat Glomerular Filtration Rate 6.1, Glucose Level 205H , Calcium Level 8.2L Height (Feet): 5 Height (Inches): 0.00 Weight (Pounds): 171 Cardiovascular: normal rate Respiratory/Chest: chest wall non-tender Abdomen: soft Makenna Daniel MD Jun 27, 2019 20:01
--- NOTE | 2019-06-27 20:16 | NUR ---
NURSE NOTES: Received pt and report from SIDNEY Barger. Observed pt resting in bed with both eyes open and watching television. Pt has a discharge order per Dr. Daniel. Pt was unable to leave to SNF due to elevated BP. Will monitor pt and recheck BP. IV site intact, asymptomatic, and patent. Call light and bedside table within reach. No signs/symptoms of acute distress noted at this time. Will continue plan of care until pt gets discharge. Addendum: 06/27/19 at 2140 by Akiko Keyes Mai, RN Received pt at 1905.
--- NOTE | 2019-06-27 21:15 | Procedure Note ---
DATE OF PROCEDURE: 06/27/2019 SURGEON: Lito Cervantes M.D. REFERRING PHYSICIAN: Ramakrishna Leonard M.D. PROCEDURE: Capsule endoscopy. INDICATION: GI bleeding. REASON FOR PROCEDURE: The procedure, risks, benefits, and possible consequences, including hemorrhage, aspiration, perforation and infection, and alternative treatments, were explained to the patient/legal guardian by Dr. Lito Cervantes and the patient/legal guardian understood and accepted these risks. DESCRIPTION OF PROCEDURE: After the patient was consented, the patient swallowed the camera. Camera spent 7 minutes before entering the small bowel and spent about 5 hours and 22 minutes in the small bowel. Quality of prep was poor. We could not find any active source of bleeding. No evidence of any ulcerations. No evidence of any blood or blood products were seen. Capsule entered the colon at the end of the study. SUMMARY OF FINDINGS: 1. Five hours and 22 minutes of the small bowel study with fair prep. 2. No obvious evidence of GI bleeding. RECOMMENDATIONS: Follow with Dr. Leonard for further management of this patient. Lito Cervantes M.D. DR: AKILA JOB#: [id number] CC:
--- NOTE | 2019-06-27 21:40 | NUR ---
NURSE NOTES: Administered Clonidine 0.1mg PO at 2058 for BP of 169/98, HR: 85 bpm. Pt's BP is currently 153/66, HR: 90 bpm. Contacted [facility] personnel and spoke to Neftaly who said [facility] transportation will arrive within the hour. Will continue to monitor pt until discharge.
--- NOTE | 2019-06-27 23:08 | NUR ---
NURSE NOTES: Followed up with [facility] and spoke to Neftaly who said their [facility] transportation is finishing up another drop off and heading to [facility]. Neftaly said it will take about another 40 mins or so to arrive. Will continue to monitor pt.
--- NOTE | 2019-06-28 00:40 | NUR ---
NURSE NOTES: Pt discharged to [facility] with [facility] personnel. Report given to [facility] personnel, Karl Harry. manager quality improvement and IV removed; no bleeding noted. Belongings list checked and signed by pt. Pt transferred to [facility] without any incident. Pt in stable condition.
--- NOTE | 2019-06-29 09:29 | Discharge Summary ---
Discharge Summary Discharge Summary _ DATE OF ADMISSION: 06/21/2019 DATE OF DISCHARGE: 06/28/2019 DISCHARGED BY: Dr Daniel REASON FOR ADMISSION: 69 years old female with past medical history of end-stage renal disease , on hemodialysis, hypertension, history of GI bleeding, presented for evaluation due to generalized weakness and abdominal pain along with the diarrhea for 1 day. Upon evaluation vital signs are stable. Laboratory work-up revealed WBC 3.8, hemoglobin 7.8 hematocrit 22.9 platelet count 213. Sodium 133, potassium 4.6. BUN 25, creatinine 5.3. Glucose 188. Troponin 0.013. Pro BNP 55188. EKG revealed sinus bradycardia with heart rate 57. No acute ischemic changes. Albumin 3.2 Stable LFT and lipase. Chest x-ray revealed cardiomegaly. Mild interstitial congestion , markedly improved 06/06/2019. Small bilateral pleural effusion. CT of the abdomen and pelvis demonstrated small amount of free intraperitoneal fluid, nonspecific with regard to etiology. Trace bilateral pleural fluid. Pericardial effusion. Cardiomegaly. Cholelithiasis. Equivocal mild gallbladder wall thickening, possibly indicative of acute cholecystitis or could be part of the generalized edema process. Another findings included degenerative spondylosis, duodenal diverticulum. Patient subsequently admitted for further management. CONSULTANTS: quality control director Dr. Oconnell pulmonary Dr. Herbert GI specialist Dr. Cervantes risk management consultant Dr. Falk resin remover/oncologist Dr. Bullard HOSPITAL COURSE: Patient admitted to telemetry floor. Serial troponin were negative. Telemetry revealed no acute ischemic changes. Echocardiogram demonstrated ejection fraction of 60 to 65% with no evidence of wall motion abnormality. Moderate to severe left ventricular hypertrophy. Aortic stenosis. Increased right atrial pressure. Moderate tricuspid regurgitation and mild mitral regurgitation. Right ventricular systolic pressure of 74 consistent with severe pulmonary hypertension. Venous duplex bilateral lower extremity revealed no evidence of acute DVT. Telemetry showed evidence of recurrent SVT. Patient started on Cardizem with no further recurrence. Blood pressure was managed with Cardizem, hydralazine , Imdur and hemodialysis. Statin continued. Hemodialysis provided as per risk management consultant recommendations with close monitoring of volumes , renal parameters and electrolytes. Pest Control Service Sales Agent followed. Supplemental oxygen provided and titrated to keep pulse oximetry above 92%. Pulmonary toilet with bronchodilator provided. Patient started on IV steroids and then changed to oral steroids with gradual tapering. GI prophylaxis with Protonix provided. Blood sugar was managed with long-acting insulin and sliding scale of insulin as needed. On prior hospitalization patient had stool for occult blood positive x2. Patient undergone on upper endoscopy with biopsy , which revealed benign oxyntic gastric mucosa with changes suggestive of early fundic gland polyp. No H. pylori. Negative for intestinal metaplasia , dysplasia and malignancy. At that time GI specialist recommended that patient would benefit from outpatient capsule endoscopy. On this admission patient admitted anemic. Stool for occult blood was negative. Patient initially undergone transfusion of 1 unit of packed red blood cells for hemoglobin 7.8. Patient undergone capsule endoscopy , which revealed no obvious evidence of GI bleeding. Hemoglobin and hematocrit were further closely monitored with goal to keep hemoglobin above 7. Hemoglobin and hematocrit remained at the baseline Prior to discharge hemoglobin 8.9, hematocrit 27.2. Patient was on Epogen . Anemia work-up was consistent with anemia of chronic disease, ferritin 1425. Pain management was addressed. Pain resolved. No further diarrhea. Supportive care provided. Bowel regimen instituted. Patient clinically stabilized and was ready for transfer back to group home facility for continuation of care. FINAL DIAGNOSES: Episode of generalized weakness Anemia of chronic kidney disease Hypertensive kidney disease Hyperlipidemia End-stage renal disease, on hemodialysis Pulmonary hypertension CHF Aortic stenosis COPD/asthma Recurrent SVT Diabetes mellitus DISCHARGE MEDICATIONS: See Medication Reconciliation list. DISCHARGE INSTRUCTIONS: Patient was discharged to the group home facility. Follow up with medical doctor at the facility. I have been assigned to dictate discharge summary for this account. I was not involved in the patient's management. Kaitlin Durán NP Jun 29, 2019 09:29
== END 2019-06-28 00:35 | DRG 291 ==
LOC: EDBD 16:25 → EDBEDREQ 16:39 → EMR 16:40 → 2E 17:18 → EDBEDREQ 18:50 → 2E 20:40
PROC: 30233N1 Transfusion of Nonautologous Red Blood Cells into Peripheral Vein, Percutaneous Approach (ICD-10-PCS; principal; 2019-06-22)
PROC: 5A1D70Z Performance of Urinary Filtration, Intermittent, Less than 6 Hours Per Day (ICD-10-PCS; principal; 2019-06-22)
PROC: 0DJ07ZZ Inspection of Upper Intestinal Tract, Via Natural or Artificial Opening (ICD-10-PCS; 2019-06-27)
DX: I13.2 Hypertensive heart and chronic kidney disease with heart failure and with stage 5 chronic kidney disease, or end stage renal disease (principal); N18.6 End stage renal disease; I47.1 Supraventricular tachycardia; I31.3 Pericardial effusion (noninflammatory); D63.1 Anemia in chronic kidney disease; I12.0 Hypertensive chronic kidney disease with stage 5 chronic kidney disease or end stage renal disease; R53.1 Weakness; K21.9 Gastro-esophageal reflux disease without esophagitis; Z99.2 Dependence on renal dialysis; I35.0 Nonrheumatic aortic (valve) stenosis; I36.1 Nonrheumatic tricuspid (valve) insufficiency; I34.0 Nonrheumatic mitral (valve) insufficiency; D50.9 Iron deficiency anemia, unspecified; I27.20 Pulmonary hypertension, unspecified; E11.22 Type 2 diabetes mellitus with diabetic chronic kidney disease; I50.9 Heart failure, unspecified; Z79.4 Long term (current) use of insulin; R42 Dizziness and giddiness; D72.819 Decreased white blood cell count, unspecified; I25.10 Atherosclerotic heart disease of native coronary artery without angina pectoris; D51.9 Vitamin B12 deficiency anemia, unspecified; M47.9 Spondylosis, unspecified; K57.30 Diverticulosis of large intestine without perforation or abscess without bleeding; K80.20 Calculus of gallbladder without cholecystitis without obstruction; E78.5 Hyperlipidemia, unspecified; J45.909 Unspecified asthma, uncomplicated; R07.9 Chest pain, unspecified
CPT/HCPCS: 36415; 71045; 74176; 80048; 80053; 82270; 82607; 82728; 82746; 82962; 83540; 83550; 83690; 83735; 83880; 84100; 84439; 84443; 84481; 84484; 84550; 85007; 85025; 86140; 86706; 86850; 86900; 86901; 86920; 87081; 93005; 93306; 93970; 94640; 94664; 99285; J1815; J7620; S5561

== ENCOUNTER 2019-07-07 08:00 | Day surgery (SDC) | payer MEDICARE, MEDICAID ==
[~2019-07-07] VITALS: Ht 160 cm; Wt 73.5 kg
[2019-07-07] VITALS (8 sets, daily range): BP systolic 136–173; BP diastolic 66–86
[~2019-07-07 08:00] MED LIST changes: +ADVANCED ANTAC355 ML ORAL; +BISACODYL5 MG ORAL; +GABAPENTIN100 MG ORAL; +LR 1000ml 1,000 ML IVLG SCH; +NEPHROVITE1 TAB ORAL; +OMEPRAZOLE20 M2 ORAL; +SORBITOL2000 ML IR; +VITAMIN A & D454 GM TOP
[2019-07-07] MEDS ORDERED: fentaNYL 100 mcg/2 mL IV PRN (08:45)
[2019-07-07] MEDS ORDERED: Midazolam 2mg/2ml Inj IVP PRN (08:45)
[2019-07-07] MEDS ORDERED: DiphenhydrAMINE 50mg/ml Inj IVP PRN (08:45)
[2019-07-07] MEDS ORDERED: Atropine Inj 1mg/10ml Syr IV PRN (08:45)
--- NOTE | 2019-07-07 08:51 | Anethesia Preoperative Eval ---
Anesthesia Pre-op PMH/ROS General Date of Evaluation: Jul 07, 2019 Time of Evaluation: 08:41 Anesthesiologist: raza ASA Score: ASA 4 Mallampati Score Class I : Soft palate, uvula, fauces, pillars visible Class II: Soft palate, uvula, fauces visible Class III: Soft palate, base of uvula visible Class IV: Only hard plate visible Mallampati Classification: Class II Surgeon: manuela Diagnosis: blood in stool Surgical Procedure: egd/colonoscopy Anesthesia History: none Social History: smoking - nonsmoker Family History: no anesthesia problems Allergies: Coded Allergies: No Known Allergies (Unverified , 05/12/17) Medications: see eMAR Patient NPO?: Yes Past Medical History Cardiovascular: Reports: other - chf, av shunt, hypercholesterolemia Pulmonary: Reports: asthma, COPD, other - dyspnea Gastrointestinal/Genitourinary: Reports: ESRD Neurologic/Psychiatric: Reports: TIA, other - vertigo, Endocrine: Reports: hypothyroidism Hematology/Immune: Reports: anemia Anesthesia Pre-op Phys. Exam Physician Exam Last Vital Signs Date Time Temp Pulse Resp B/P (MAP) Pulse Ox O2 Delivery O2 Flow Rate FiO2 07/07/19 09:00 Room Air 07/07/19 08:40 97.3 75 20 151/66 99 2 Constitutional: NAD Neurologic: CN 2-12 intact Cardiovascular: RRR Respiratory: CTA Airway Exam Mallampati Score: Class II MO: limited Neck: flexible TMD: 2fb ROM: limited Anesthesia Pre-op A/P Labs Labs Test 07/07/19 08:40 07/07/19 09:45 Sodium Level 139 MMOL/L (136-145) 140 MMOL/L (136-145) Potassium Level 3.2 MMOL/L (3.5-5.1) 3.7 MMOL/L (3.5-5.1) Chloride Level 96 MMOL/L (98-107) 94 MMOL/L (98-107) Carbon Dioxide Level 40 MMOL/L (21-32) 38 MMOL/L (21-32) Anion Gap 3 mmol/L (5-15) 8 mmol/L (5-15) Blood Urea Nitrogen 23 mg/dL (7-18) 23 mg/dL (7-18) Creatinine 4.0 MG/DL (0.55-1.30) 4.0 MG/DL (0.55-1.30) Estimat Glomerular Filtration Rate 11.1 mL/min (>60) 11.1 mL/min (>60) Glucose Level 38 MG/DL (74-106) 126 MG/DL (74-106) Calcium Level 8.3 MG/DL (8.5-10.1) 8.0 MG/DL (8.5-10.1) White Blood Count 4.7 K/UL (4.8-10.8) Red Blood Count 3.25 M/UL (4.20-5.40) Hemoglobin 9.8 G/DL (12.0-16.0) Hematocrit 30.4 % (37.0-47.0) Mean Corpuscular Volume 93 FL (80-99) Mean Corpuscular Hemoglobin 30.3 PG (27.0-31.0) Mean Corpuscular Hemoglobin Concent 32.4 G/DL (32.0-36.0) Red Cell Distribution Width 14.2 % (11.6-14.8) Platelet Count 233 K/UL (150-450) Mean Platelet Volume 4.9 FL (6.5-10.1) Neutrophils (%) (Auto) 83.8 % (45.0-75.0) Lymphocytes (%) (Auto) 6.7 % (20.0-45.0) Monocytes (%) (Auto) 6.6 % (1.0-10.0) Eosinophils (%) (Auto) 1.7 % (0.0-3.0) Basophils (%) (Auto) 1.1 % (0.0-2.0) Risk Assessment & Plan Assessment: asa4 Plan: mac Status Change Before Surgery: No Pre-Antibiotics Drug: Alison Valenzuela MD Jul 07, 2019 08:51
[2019-07-07 09:07] LABS: ANION GAP 3 mmol/L (5-15); BLOOD UREA NITROGEN 23 mg/dL (7-18); CALCIUM 8.3 MG/DL (8.5-10.1); CARBON DIOXIDE 40 MMOL/L (21-32); CHLORIDE 96 MMOL/L (98-107); POTASSIUM 3.2 MMOL/L (3.5-5.1); SODIUM 139 MMOL/L (136-145)
[2019-07-07 09:59] LABS: BASOPHILS % (AUTO) 1.1 % (0.0-2.0); EOSINOPHILS % (AUTO) 1.7 % (0.0-3.0); HEMATOCRIT 30.4 % (37.0-47.0); HEMOGLOBIN 9.8 G/DL (12.0-16.0); LYMPHOCYTES % (AUTO) 6.7 % (20.0-45.0); MEAN CORPUSCULAR VOLUME 93 FL (80-99); MONOCYTES % (AUTO) 6.6 % (1.0-10.0); NEUTROPHILS % (AUTO) 83.8 % (45.0-75.0); PLATELET COUNT 233 K/UL (150-450); RED BLOOD COUNT 3.25 M/UL (4.20-5.40); RED CELL DISTRIBUTION WIDTH 14.2 % (11.6-14.8); WHITE BLOOD COUNT 4.7 K/UL (4.8-10.8)
[2019-07-07 10:03] LABS: ANION GAP 8 mmol/L (5-15); BLOOD UREA NITROGEN 23 mg/dL (7-18); CARBON DIOXIDE 38 MMOL/L (21-32); CHLORIDE 94 MMOL/L (98-107); POTASSIUM 3.7 MMOL/L (3.5-5.1); SODIUM 140 MMOL/L (136-145)
[2019-07-07] MEDS ORDERED: CARDIZEM120 MG PO (10:10)
[2019-07-07] MEDS ORDERED: PROTONIX20 MG ORAL (10:10)
[2019-07-07] MEDS ORDERED: NOVOLOG100 UNITS1 SUBQ (10:10)
[2019-07-07] MEDS ORDERED: HYDRALAZINE HCL50 MG ORAL (10:10)
[2019-07-07] MEDS ORDERED: [UNRECOGNIZED DRUG - OTHER] (10:10)
--- NOTE | 2019-07-07 10:26 | NUR ---
DR SERNA ORDERED TO CHANGE IV TO D5W AT 100CC/HR
[2019-07-07] MEDS ORDERED: Propofol 200mg/20ml IV ONE (11:00)
[2019-07-07] MEDS ORDERED: Lidocaine 1% MPF 10mg/ml 5ml ONE (11:00)
--- NOTE | 2019-07-07 11:04 | Pre-Procedure Note/Attestation ---
Pre-Procedure Note/Attestation Complete Prior to Procedure Planned Procedure: not applicable Procedure Narrative: esophagogastroduodenoscopy colon Indications for Procedure Pre-Operative Diagnosis: Heme (+) Attestation I attest that I discussed the nature of the procedure; its benefits; risks and complications; and alternatives (and the risks and benefits of such alternatives ), prior to the procedure, with the patient (or the patient's legal credit representative). I attest that, if there was a reasonable possibility of needing a blood transfusion, the patient (or the patient's legal credit representative) was given the [facility] standardized written summary, pursuant to the Damien Bianka Blood Safety Act ([place] Health and Safety Code # 1645, as amended). I attest that I re-evaluated the patient just prior to the surgery and that there has been no change in the patient's H&P, except as documented below: Ramakrishna Leonard MD Jul 07, 2019 11:04
--- NOTE | 2019-07-07 11:08 | Short Stay Surgery H&P ---
History of Present Illness History of Present Illness Chief Complaint Subjective Here for EGD/Colon lethargic on arrival glucose 38 given D5 containing IVF then 1/2 amp D5 subsequent labs improved per SNF RN, received insulin this am PMH ESRD HTN RAD CHF CAD IDDM Anemia PSH s/p HD cath FH NC SH no smoker no EtOH at SNF ROS (-) WDWN awake after glucose NCAT supple CTA RR abd soft ND NT no edema awake, responsive Assessment hypoglycemia Heme (+) Dark stools anemia Recommendations - D5 IV - monitor glucose - EGD/Colon today HPI Carolina Vasquez is a 69 year old female who was admitted on for Blood In Stool Patient History Allergies: Coded Allergies: No Known Allergies (Unverified , 05/12/17) Medication History Scheduled Atorvastatin Calcium* (Lipitor*), 10 MG ORAL BEDTIME Calcium Acetate (Calcium Acetate), 1,334 MG PO TID, (Reported) Calcium Acetate (Calcium Acetate), 667 MG PO BID, (Reported) Diltiazem Hcl (Cardizem), 60 MG PO Q8, (Reported) Docusate Sodium* (Docusate Sodium*), 100 MG ORAL THREE TIMES A DAY, (Reported) Ezetimibe (Zetia*), 10 MG ORAL DAILY, (Reported) Gabapentin* (Gabapentin*), 100 MG ORAL Q8HR, (Reported) Hydralazine Hcl* (Hydralazine Hcl*), 50 MG ORAL EVERY 8 HOURS, (Reported) Insulin Aspart (Novolog Flexpen), 4 SUBQ NEED, (Reported) Insulin Detemir (Levemir), 20 UNITS SUBQ DAILY, (Reported) Insulin Regular, Human* (Novolin R*), 0 SUBQ .SLIDING SCALE, (Reported) Isosorbide Mononitrate (Isosorbide Mononitrate Er), 60 MG PO DAILY, (Reported) Levothyroxine Sodium (Levothyroxine Sodium), 137 MCG ORAL DAILY, (Reported) Montelukast Sodium* (Montelukast Sodium*), 10 MG ORAL QPM Pantoprazole Sodium (Protonix), 40 MG ORAL EVERY 12 HOURS, (Reported) Vitamin A & D (Vitamin A & D Ointment), 1 APPLIC TOP DAILY, (Reported) Vitamin B Cmplx/Vit C/Folic AC (Nephro-Blaze Tablet), 1 TAB ORAL DAILY, (Reported ) Scheduled PRN Mag Hydrox/Al Hydrox/Simeth* (Advanced Antacid Liquid*), 30 ML ORAL FOUR TIMES A DAY PRN for ANTIACID, (Reported) Ondansetron* (Zofran*), 4 MG ORAL Q6H PRN for Nausea & Vomiting, (Reported) Miscellaneous Medications [Astart], (Reported) Discontinued Medications Amlodipine Besylate (Norvasc), 10 MG ORAL DAILY Discontinued Reason: Pt stopped taking med Aspirin* (Aspirin*), 81 MG ORAL DAILY, (Reported) Discontinued Reason: Pt stopped taking med Carvedilol* (Carvedilol*), 25 MG ORAL DAILY, (Reported) Discontinued Reason: Pt stopped taking med Labetalol HCl (Labetalol HCl), 100 MG ORAL BID, (Reported) Discontinued Reason: Pt stopped taking med Nifedipine Er* (Nifedipine Er*), 90 MG ORAL DAILY, (Reported) Discontinued Reason: Pt stopped taking med Omeprazole (Omeprazole), 20 MG ORAL DAILY, (Reported) Discontinued Reason: Pt stopped taking med Physical Exam Vital Signs Last Vital Signs Date Time Temp Pulse Resp B/P (MAP) Pulse Ox O2 Delivery O2 Flow Rate FiO2 07/07/19 09:00 Room Air 07/07/19 08:40 97.3 75 20 151/66 99 2 Labs Laboratory Tests Test 07/07/19 08:40 07/07/19 09:45 Sodium Level 139 MMOL/L (136-145) 140 MMOL/L (136-145) Potassium Level 3.2 MMOL/L (3.5-5.1) L 3.7 MMOL/L (3.5-5.1) Chloride Level 96 MMOL/L (98-107) L 94 MMOL/L (98-107) L Carbon Dioxide Level 40 MMOL/L (21-32) H 38 MMOL/L (21-32) H Anion Gap 3 mmol/L (5-15) L 8 mmol/L (5-15) Blood Urea Nitrogen 23 mg/dL (7-18) H 23 mg/dL (7-18) H Creatinine 4.0 MG/DL (0.55-1.30) H 4.0 MG/DL (0.55-1.30) H Estimat Glomerular Filtration Rate 11.1 mL/min (>60) 11.1 mL/min (>60) Glucose Level 38 MG/DL (74-106) *L 126 MG/DL (74-106) H Calcium Level 8.3 MG/DL (8.5-10.1) L 8.0 MG/DL (8.5-10.1) L White Blood Count 4.7 K/UL (4.8-10.8) L Red Blood Count 3.25 M/UL (4.20-5.40) L Hemoglobin 9.8 G/DL (12.0-16.0) L Hematocrit 30.4 % (37.0-47.0) L Mean Corpuscular Volume 93 FL (80-99) Mean Corpuscular Hemoglobin 30.3 PG (27.0-31.0) Mean Corpuscular Hemoglobin Concent 32.4 G/DL (32.0-36.0) Red Cell Distribution Width 14.2 % (11.6-14.8) Platelet Count 233 K/UL (150-450) Mean Platelet Volume 4.9 FL (6.5-10.1) L Neutrophils (%) (Auto) 83.8 % (45.0-75.0) H Lymphocytes (%) (Auto) 6.7 % (20.0-45.0) L Monocytes (%) (Auto) 6.6 % (1.0-10.0) Eosinophils (%) (Auto) 1.7 % (0.0-3.0) Basophils (%) (Auto) 1.1 % (0.0-2.0) Plan Attestation Are the patient's medical conditions optimized for surgery? Ramakrishna Leonard MD Jul 07, 2019 11:08
--- NOTE | 2019-07-07 12:04 | Immediate Post-Op Evaluation ---
Immediate Post-Op Evalulation Immediate Post-Op Evalulation Procedure: egd/colonoscopy w/bx Date of Evaluation: Jul 07, 2019 Time of Evaluation: 12:01 IV Fluids: 150ml 0.9ns Blood Products: none Estimated Blood Loss: negligible Blood Pressure Systolic: 139 Blood Pressure Diastolic: 70 Pulse Rate: 78 Respiratory Rate: 18 O2 Sat by Pulse Oximetry: 99 Temperature (Fahrenheit): 97.5 Pain Score (1-10): 0 Nausea: No Vomiting: No Complications none Patient Status: awake, reacts, patent Hydration Status: adequate Drug: Alison Valenzuela MD Jul 07, 2019 12:04
--- NOTE | 2019-07-07 12:05 | 48 Hour Post Anesthesia Eval ---
Post Anesthesia Evaluation Procedure: egd/colonoscopy w/bx Date of Evaluation: Jul 07, 2019 Time of Evaluation: 12:04 Blood Pressure Systolic: 140 0: 78 Pulse Rate: 78 Respiratory Rate: 18 Temperature (Fahrenheit): 97.6 O2 Sat by Pulse Oximetry: 99 Airway: patent Nausea: No Vomiting: No Pain Intensity: 0 Hydration Status: adequate Cardiopulmonary Status: stable Mental Status/LOC: patient returned to baseline Post-Anesthesia Complications: none Follow-up care needed: N/A Alison Nava MD Jul 07, 2019 12:05
--- NOTE | 2019-07-07 12:17 | Endoscopy Procedure Note ---
Endoscopy Procedure Note General Indication for Procedure: ob (+) Procedures Performed: EGD, colonoscopy Operative Findings/Diagnosis: gastric AVM-bicap, bx gastritis, dim cecal polyp Specimen: yes Pt Tolerated Procedure Well: Yes Estimated Blood Loss: none Anesthesia Anesthesiologist: Robert Mattson Anesthesia: MAC Medications Medication Given: see anesthesia record Inserted Devices Implant(s) used?: No GI Core Measures 50 yrs or older w/o bx or poly: No 10yrs. F/U recommended: No If not recommended, why?: Above average risk 18 years or older w/prev. colo: No <3yrs. since last colonoscopy: No Med reason:<3 yrs.: System Reason:<3 yrs.: Last colonoscopy >= to 3yrs: Yes Ramakrishna Leonard MD Jul 07, 2019 12:17
--- NOTE | 2019-07-07 18:15 | Operative Note - Dictated ---
DATE OF OPERATION: 07/07/2019 GASTROENTEROLOGY PROCEDURE REPORT PROCEDURE: Upper gastrointestinal endoscopy with biopsy as well as Gold Probe cautery of arteriovenous malformation as well as colonoscopy with biopsy. SURGEON: Ramakrishna Leonard M.D. ANESTHESIA: Alison Fletcher M.D. PRE-ENDOSCOPIC DIAGNOSIS: Heme-positive stools. POST-ENDOSCOPIC DIAGNOSES: 1. 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 2. Antral gastritis, mild, status post biopsy. 3. Diminutive cecal polyp, status post biopsy, removal. DESCRIPTION OF PROCEDURE: The procedure, its risks, indications, alternatives, and possible complications were explained and informed consent was obtained. The patient was then sedated and a diagnostic upper endoscope was introduced through the oropharynx and advanced to the duodenum. The endoscope was then gradually withdrawn and the mucosa examined carefully. The colonoscope was then introduced in the rectum and advanced to the cecum without difficulty. The cecum was identified by the appearance of the ileocecal valve and appendiceal orifice. The colonoscope was then gradually withdrawn and the mucosa examined carefully. Examination of the upper and lower gastrointestinal tract as well as findings and procedures were as listed as above. The patient tolerated the procedure well and was sent to recovery in good condition. COMPLICATIONS: None. RECOMMENDATIONS: 1. Follow up biopsy results. 2. Monitor CBC. 3. Outpatient followup. Thank you for asking me to participate in care this patient. Ramakrishna Leonard M.D. DR: EMELINA JOB#: [id number] CC: Ramakrishna Leonard M.D.; Fax#: [phone]
== END 2019-07-07 13:25 | disposition home or self-care (01) ==
LOC: GAS 08:00
DX: K63.5 Polyp of colon (principal); K29.70 Gastritis, unspecified, without bleeding; K55.20 Angiodysplasia of colon without hemorrhage; I13.2 Hypertensive heart and chronic kidney disease with heart failure and with stage 5 chronic kidney disease, or end stage renal disease; E11.22 Type 2 diabetes mellitus with diabetic chronic kidney disease; N18.6 End stage renal disease; I50.9 Heart failure, unspecified; E11.649 Type 2 diabetes mellitus with hypoglycemia without coma; D64.9 Anemia, unspecified; Z79.899 Other long term (current) drug therapy; Z79.4 Long term (current) use of insulin; Z86.010 Personal history of colon polyps; E78.00 Pure hypercholesterolemia, unspecified; J44.9 Chronic obstructive pulmonary disease, unspecified; Z86.73 Personal history of transient ischemic attack (TIA), and cerebral infarction without residual deficits; E03.9 Hypothyroidism, unspecified
CPT/HCPCS: 36415; 43239; 43255; 45380; 80048; 82962; 85025; J2704; J7030; 94003; 94150

== ENCOUNTER 2020-01-30 13:02 | Emergency (ER) | payer MEDICARE, MEDICAID ==
[~2020-01-30] VITALS: Ht 160 cm; Wt 71.7 kg
[~2020-01-30 13:02] MED LIST changes: +CARDIZEM120 MG PO; +HYDRALAZINE HCL50 MG ORAL; -LR 1000ml 1,000 ML IVLG SCH; +NOVOLOG100 UNITS1 SUBQ; +PROTONIX20 MG ORAL; +[UNRECOGNIZED DRUG - OTHER]
--- NOTE | 2020-01-30 13:24 | Emergency Room Report ---
History of Present Illness General Chief Complaint: Right-sided shoulder pain Present Illness HPI Patient is a 70-year-old female presents after increased right-sided shoulder pain. Patient had a recent fall. She reports landing on her right shoulder. Patient is right-hand dominant. Is currently having pain worse with movement. Injury occurred approximately 2 weeks ago. She had prior history of end-stage renal disease is patient was dialyzed today. Denies any fever or cough. Pain is worse with movement. Allergies: Coded Allergies: No Known Allergies (Unverified , 05/12/17) Patient History Past Medical History: see triage record, dialysis Reviewed Nursing Documentation: PMH: Agreed; PSxH: Agreed Nursing Documentation-PMH Hx Cardiac Problems: Yes Hx Hypertension: Yes Hx Pacemaker: No Hx Asthma: Yes Hx COPD: Yes Hx Diabetes: Yes Hx Cancer: No Hx Gastrointestinal Problems: Yes Hx Dialysis: Yes - [facility]-LAST DIALYSIS 07/06/2019 Hx Neurological Problems: No Hx Transient Ischemic Attacks: Yes - ACUTE ISCHEMIC HEART DISEASE Hx Dementia: No Hx Alzheimer's Disease: No Hx Parkinson's Disease: No Hx Meningitis: No Hx Encephalitis: No Hx Seizures: No Hx Epilepsy: No Hx Multiple Sclerosis: No Hx Cerebral Palsy: No Hx Amyotrophic Lat Sclerosis: No Hx Guillian-[place] Syndrome: No Hx Paralysis: No Hx Peripheral Neuropathy: No Hx Spinal Cord Injury: No Hx Head Trauma: No Hx Traumatic Brain Injury: No Hx Memory Loss: No Hx Concentration Difficulty: No Hx Speech Problem: No Hx Tremors: No Hx Vertigo: Yes Hx Dizziness: No Hx Syncope: No Hx Headaches: No Hx Aphasia: No Hx Dysphasia: No Hx Numbness: No Hx Weakness: Yes - MUSCLE WEAKNESS Hx Fatigue: No Hx Neurologic Surgery: No Hx Brain Shunt: No Review of Systems All Other Systems: negative except mentioned in HPI Physical Exam General Appearance: well appearing, no apparent distress, alert, GCS 15 Head: normocephalic, atraumatic ENT: hearing grossly normal, normal voice Neck: full range of motion, supple Respiratory: lungs clear, normal breath sounds, no respiratory distress, speaking full sentences Cardiovascular #1: normal inspection Gastrointestinal: normal inspection Musculoskeletal: normal inspection, decreased range of mation - Decreased ability to abduct the shoulder Neurologic: motor strength/tone normal, quarrying specialist III-XII nml as tested, oriented x3 , normal gait Psychiatric: mood/affect normal Skin: no rash Medical Decision Making Diagnostic Impression: Primary Impression: Clavicle fracture Additional Impression: ESRD (end stage renal disease) ER Course Patient present for right shoulder pain. Differential diagnosis include was not limited to fracture, contusion, muscle strain among others. Because of complexity of patient's case imaging studies were ordered.Extremity of the right shoulder read by radiology showed minimally displaced distal clavicle fracture. Patient was placed in a sling. Patient is advised orthopedic follow- up. She is advised to return if worse. The patient is advised to follow up with primary care doctor in 1-2 days. Patient is advised to return if any worsening condition or if any changes in status that are concerning. This report is dictated with [employer] transcriptionist software which may occasionally lead to discrepancies related to use of this software. Status: improved Disposition: HOME, SELF-CARE Condition: Stable Scripts Diclofenac Sodium (VOLTAREN) 100 Gm Gel..gram. 5 GM TP DAILY, #120 GM Prov: Anuel Lilly MD 01/30/20 Acetaminophen* (ACETAMINOPHEN EXTRA STRENGTH*) 500 Mg Tablet 500 MG ORAL Q8H PRN for Fever/Headache/Mild Pain, #30 TAB Prov: Anuel Lilly MD 01/30/20 Anuel Lilly MD Jan 30, 2020 13:24
[2020-01-30 13:27] VITALS: BP 146/61
--- NOTE | 2020-01-30 13:27 | NUR ---
ED Nurse Note:pt. came from home with c/o right shoulder and arm pain after mechanical fall 2 weeks ago ,pt. is A/Ox4 ambulatory seen by ER
[2020-01-30] MEDS ORDERED: ACETAMINOPHEN500 M3 ORAL (14:58)
[2020-01-30] MEDS ORDERED: VOLTAREN100 G1 TP (14:59)
[2020-01-30 15:05] VITALS: BP 146/61
--- NOTE | 2020-01-30 15:07 | NUR ---
ED Nurse Note: Pt cleared by health care Provider for discharge. DC instructions/prescription was given and explained to pt and verbalized understanding of teachings. All medical deviecs such as ID band removed. Pt is AAO x4, ambulatory and left with all personal belongings.
--- NOTE | 2020-01-30 15:14 | Diagnostic Imaging Report ---
Indication: Right shoulder pain, status post fall Technique: 3 views of the right shoulder Comparison: none Findings: There is a well-circumscribed 7 mm diameter lucency in the distal right clavicle. This is not evident on earlier chest radiographs. Small lucencies in the humeral head likely represent degenerative subchondral cysts. No definite acute fractures. No dislocations. Impression: 7 mm lucency in the distal right clavicle, not visible on earlier chest radiographs and possibly representing an osteolytic lesion. Consider further evaluation with dedicated clavicle radiographs and/or bone scan to assess is metabolically active. Small lucencies seen in the right humeral head likely representing degenerative subchondral cysts. No definite acute bony trauma Findings discussed by phone with Dr. Lilly at the time of interpretation
== END 2020-01-30 15:04 | disposition home or self-care (01) ==
LOC: EMR 14:08
DX: S42.031A Displaced fracture of lateral end of right clavicle, initial encounter for closed fracture (principal); M85.611 Other cyst of bone, right shoulder; W19.XXXA Unspecified fall, initial encounter; Y92.9 Unspecified place or not applicable; J44.9 Chronic obstructive pulmonary disease, unspecified; Z86.73 Personal history of transient ischemic attack (TIA), and cerebral infarction without residual deficits; I13.11 Hypertensive heart and chronic kidney disease without heart failure, with stage 5 chronic kidney disease, or end stage renal disease; E11.22 Type 2 diabetes mellitus with diabetic chronic kidney disease; N18.6 End stage renal disease
CPT/HCPCS: 99283

== ENCOUNTER 2020-07-16 18:44 | Inpatient (IN) | payer MEDICARE, MEDICAID ==
[~2020-07-16] VITALS: Ht 162.6 cm; Wt 81.6 kg
[~2020-07-16 18:44] MED LIST changes: +ACETAMINOPHEN500 M3 ORAL; +VOLTAREN100 G1 TP
[2020-07-16] MEDS ORDERED: dexAMETHasone 10mg/ml Inj IV ONE (19:00)
[2020-07-16] MEDS ORDERED: Albuterol 90mcg Inhaler 8gm INH PRN (19:00)
[2020-07-16] MEDS ORDERED: Nitroglycerin Subl 0.4mg tab SL PRN (19:00)
--- NOTE | 2020-07-16 19:04 | Emergency Room Report ---
History of Present Illness General Source: Patient (Anuel Lilly MD) Present Illness HPI Patient is a 70-year-old female brought in by daughter after increased shortness of breath. Prior history of end-stage renal disease on dialysis. Patient is followed by Dr. Falk. Dr. Falk contacted the hospital. Per the patient's daughter patient is coronavirus positive. Apparently had hypoglycemic episode. Patient was more short of breath today. (Anuel Lilly MD) Allergies: Coded Allergies: No Known Allergies (Unverified , 05/12/17) COVID-19 Screening Contact w/high risk pt: No Recent Travel to affected area: No Experienced COVID-19 symptoms?: No (Anuel Lilly MD) Patient History Past Medical History: see triage record, DM, dialysis Reviewed Nursing Documentation: PMH: Agreed; PSxH: Agreed (Anuel Lilly MD) Nursing Documentation-PMH Hx Cardiac Problems: Yes Hx Hypertension: Yes Hx Pacemaker: No Hx Asthma: Yes Hx COPD: Yes Hx Diabetes: Yes Hx Cancer: No Hx Gastrointestinal Problems: Yes Hx Dialysis: Yes - [facility]-LAST DIALYSIS 07/06/2019 Hx Neurological Problems: No Hx Transient Ischemic Attacks: Yes - ACUTE ISCHEMIC HEART DISEASE Hx Dementia: No Hx Alzheimer's Disease: No Hx Parkinson's Disease: No Hx Meningitis: No Hx Encephalitis: No Hx Seizures: No Hx Epilepsy: No Hx Multiple Sclerosis: No Hx Cerebral Palsy: No Hx Amyotrophic Lat Sclerosis: No Hx Guillian-[place] Syndrome: No Hx Paralysis: No Hx Peripheral Neuropathy: No Hx Spinal Cord Injury: No Hx Head Trauma: No Hx Traumatic Brain Injury: No Hx Memory Loss: No Hx Concentration Difficulty: No Hx Speech Problem: No Hx Tremors: No Hx Vertigo: Yes Hx Dizziness: No Hx Syncope: No Hx Headaches: No Hx Aphasia: No Hx Dysphasia: No Hx Numbness: No Hx Weakness: Yes - MUSCLE WEAKNESS Hx Fatigue: No Hx Neurologic Surgery: No Hx Brain Shunt: No (Anuel Lilly MD) Physical Exam General Appearance: alert, obese, Chronically Ill Neck: full range of motion Respiratory: wheezing Cardiovascular #1: edema Gastrointestinal: normal inspection, soft Neurologic: alert, sales expert III-XII nml as tested Psychiatric: normal inspection, judgement/insight normal Skin: other (Anuel Lilly MD) Procedures Critical Care Time Critical Care Time Patient had a critical medical condition which untreated could potentially result in life or limb threatening injury. Total critical care time excluding procedures approximately 45 minutes. (Anuel Lilly MD) Medical Decision Making Diagnostic Impression: Primary Impression: ESRD (end stage renal disease) Additional Impressions: Hypertensive crisis Suspected 2019 novel coronavirus infection Hyperkalemia ER Course Patient presented for increased shortness of breath. Differential diagnosis include was not limited to pneumonia, coronavirus infection, fluid overload, hyperkalemia among others. Because of complexity of patient's case laboratory tests and imaging studies were ordered. Patient was noted to have some increased respiratory effort and was noted to have wheezing on bilateral lung exams. Respiratory treatments ordered. MDI was ordered due to patient's positive coronavirus history. Patient's initial blood sugar was greater than 200.She is noted to be markedly hypertensive. Patient given clonidine as well as hydralazine due to severe hypertension. She is also given nitroglycerin. Patient appears to be somewhat fluid overloaded. Chest x-ray 1 view interpreted by me showed cardiomegaly with bilateral interstitial changes and fluid in the fissure. Patient was also noted to have recent coronavirus infection. Dr. Makenna Faustin was contacted for inpatient management. Dr. Falk was aware of the patient present in the hospital and will arrange dialysis. (Anuel Lilly MD) ER Course 12/15 - AM labs with hyperkalemia. K+ = 6.8. Kayexelate, calcium, D50 and insulin given. 642 EKG - NSR 83, right axis. NSSTTW changes. No peaked T waves. 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 (Brandon Moseley MD) Rhythm Strip Diag. Results EP Interpretation: yes Rhythm: NSR, no PVC's, no ectopy (Brandon Moseley MD) Status: unchanged (Anuel Lilly MD) Last Vital Signs Date Time Temp Pulse Resp B/P (MAP) Pulse Ox O2 Delivery O2 Flow Rate FiO2 07/17/20 18:07 69 17 126/65 100 07/17/20 16:00 97.9 07/17/20 12:00 Nasal Cannula 3.0 07/17/20 11:25 100 Status: improved (Brandon Moseley MD) Disposition: ADMITTED INPATIENT Condition: Serious Anuel Lilly MD Jul 16, 2020 19:04 Brandon Moseley MD Jul 17, 2020 06:42
[2020-07-16 19:10] VITALS: BP 253/217
--- NOTE | 2020-07-16 19:10 | NUR ---
ED Nurse Note: wheelchaired in to ed c/o sob and hypoglycemia. per daughter, patient was tested positive for covid of unk time. pt bs at triage is 233. patient changed into gown; attached to monitor. patient present with acute respiratory distress and elevated bp. dialysis shunt noted on left upper arm. all safety measures met
[2020-07-16] MEDS ORDERED: cloNIDine 0.2mg Tab ORAL ONE (19:15)
--- NOTE | 2020-07-16 19:15 | NUR ---
ED Nurse Note: iv access established. blood, initial lactic, blood cultures, mrsa vre cre swab collected; sent down to lab. rt at bedside. pt on bipap
[2020-07-16 20:02] LABS: HEMATOCRIT 33.8 % (37.0-47.0); HEMOGLOBIN 11.8 G/DL (12.0-16.0); MEAN CORPUSCULAR VOLUME 99 FL (80-99); PLATELET COUNT 36 K/UL (150-450); RED BLOOD COUNT 3.42 M/UL (4.20-5.40); RED CELL DISTRIBUTION WIDTH 15.9 % (11.6-14.8)
[2020-07-16 20:19] LABS: ANION GAP 12 mmol/L (5-15); BLOOD UREA NITROGEN 85 mg/dL (7-18); CALCIUM 9.1 MG/DL (8.5-10.1); CARBON DIOXIDE 27 MMOL/L (21-32); CHLORIDE 90 MMOL/L (98-107); CREATININE 7.7 MG/DL (0.55-1.30); POTASSIUM 5.7 MMOL/L (3.5-5.1); SODIUM 129 MMOL/L (136-145)
[2020-07-16 20:20] LABS: WHITE BLOOD COUNT 1.8 K/UL (4.8-10.8)
[2020-07-16 20:37] LABS: ALANINE AMINOTRANSFERASE 11 U/L (12-78); ALBUMIN 3.4 G/DL (3.4-5.0); ALBUMIN/GLOBULIN RATIO 0.7 (1.0-2.7); ALKALINE PHOSPHATASE 441 U/L (46-116); ASPARTATE AMINO TRANSFERASE 31 U/L (15-37); BILIRUBIN,TOTAL 1.5 MG/DL (0.2-1.0); CKMB 7.4 NG/ML (0.0-3.6); CREATINE KINASE 126 U/L (26-308); LACTATE DEHYDROGENASE 203 U/L (81-234)
[2020-07-16 20:48] VITALS: BP 159/53
[2020-07-16 21:02] LABS: BILIRUBIN,DIRECT 0.9 MG/DL (0.0-0.3)
[2020-07-16 21:06] LABS: FERRITIN > 2000 NG/ML (8-388)
[2020-07-16 21:13] LABS: INR 1.1 (0.9-1.1)
[2020-07-16 23:00] VITALS: BP 142/26
--- NOTE | 2020-07-16 23:00 | NUR ---
ED Nurse Note: patient refusing bipap. rt at bedside. placed pt on 4L NC; 96%
[2020-07-17] VITALS (9 sets, daily range): BP systolic 126–196; BP diastolic 30–70
--- NOTE | 2020-07-17 01:00 | NUR ---
ED Nurse Note: spoke to trina barriga hd nurse. states just left [facility] and is going home to sleep; she will not dialyze patients in er; she will follow up with patient in am.
--- NOTE | 2020-07-17 01:38 | NUR ---
ED Nurse Note: received admission orders from aranza kaplan. noted and carried out
--- NOTE | 2020-07-17 04:00 | NUR ---
ED Nurse Note: am care provided. patient ao3. vitals stable to baseline. nc 4l in place. am labs drawn; sent down to lab.
--- NOTE | 2020-07-17 05:00 | NUR ---
ED Nurse Note: cre vre mrsa swab collected; sent down to lab.
--- NOTE | 2020-07-17 05:30 | NUR ---
ED Nurse Note: rt at bedside. NRB 15L placed; spo2 96-99%
[2020-07-17 05:37] LABS: HEMATOCRIT 32.5 % (37.0-47.0); HEMOGLOBIN 11.2 G/DL (12.0-16.0); MEAN CORPUSCULAR VOLUME 99 FL (80-99); PLATELET COUNT 42 K/UL (150-450); RED BLOOD COUNT 3.29 M/UL (4.20-5.40); RED CELL DISTRIBUTION WIDTH 15.6 % (11.6-14.8)
[2020-07-17] MEDS: HydrALAZINE 50mg tab ORAL SCH ×3 (05:53→21:20)
[2020-07-17 06:22] LABS: ALANINE AMINOTRANSFERASE 9 U/L (12-78); ALBUMIN 3.2 G/DL (3.4-5.0); ALBUMIN/GLOBULIN RATIO 0.7 (1.0-2.7); ALKALINE PHOSPHATASE 411 U/L (46-116); ANION GAP 14 mmol/L (5-15); ASPARTATE AMINO TRANSFERASE 29 U/L (15-37); BILIRUBIN,TOTAL 1.4 MG/DL (0.2-1.0); BLOOD UREA NITROGEN 91 mg/dL (7-18); CALCIUM 8.5 MG/DL (8.5-10.1); CARBON DIOXIDE 24 MMOL/L (21-32); CHLORIDE 91 MMOL/L (98-107); CHOLESTEROL 111 MG/DL (< 200); GAMMA GLUTAMYL TRANSPEPTIDASE 917 U/L (5-85); HDL CHOLESTEROL 35 MG/DL (40-60); PHOSPHORUS 7.2 MG/DL (2.5-4.9); SODIUM 129 MMOL/L (136-145); TRIGLYCERIDES 146 MG/DL (30-150)
[2020-07-17 06:34] LABS: POTASSIUM 6.8 MMOL/L (3.5-5.1)
[2020-07-17 06:41] LABS: BILIRUBIN,DIRECT 0.7 MG/DL (0.0-0.3)
[2020-07-17] MEDS ORDERED: Insulin Human Regular 100units/ml 3ml IV ONE (06:45)
[2020-07-17] MEDS ORDERED: Calcium Gluconate 1gm/10ml vial IVP ONE (06:45)
[2020-07-17] MEDS ORDERED: Sodium Polystyrene Sulfonate 15gm Powder RECTAL ONE (06:45)
[2020-07-17] MEDS ORDERED: Bacitracin Oint UD TOPIC ONE (07:00)
--- NOTE | 2020-07-17 07:00 | NUR ---
ED Nurse Note: report received from Isidro Graham RN. Pt lying in bed in semi-fowlers with no signs of distress. A+Ox4. Pt having some shortness of breath on 15 L non rebreather with O2 sat 100%. Pt to receive dialysis today. Wheezing noted on auscultation bilaterally.
--- NOTE | 2020-07-17 08:19 | NUR ---
ED Nurse Note: pt continues to take off non rebreather mask. Pt placed on 3 L NC with o2 sat of 95%. Pt tolerating NC better than mask. Pt keeping nasal cannula in place.
[2020-07-17] MEDS: Docusate 100mg cap ORAL SCH ×3 (08:55→18:00)
--- NOTE | 2020-07-17 10:28 | Consultation ---
Consult Note Consult Note Patient under my care for her dialysis related condition. She referred to emergency room yesterday from dialysis unit for increasing shortness of breath and elevated blood pressure Patient seen in emergency room. Discussed with SIDNEY Dickey. Patient is a 70-year-old female brought in by daughter after increased shortness of breath. Prior history of end-stage renal disease on dialysis. Patient is followed by Dr. Falk. Dr. Falk contacted the hospital. Per the patient's daughter patient is coronavirus positive. Apparently had hypoglycemic episode. Patient was more short of breath today. Allergies: No Known Allergies (Unverified , 05/12/17) COVID-19 Screening Contact w/high risk pt: No Recent Travel to affected area: No Experienced COVID-19 symptoms?: No Past Medical History: see triage record, DM, dialysis, hypertension Reviewed Nursing Documentation: Done Hx Cardiac Problems: Yes Hx Hypertension: Yes Hx Pacemaker: No Hx Asthma: Yes Hx COPD: Yes Hx Diabetes: Yes Hx Gastrointestinal Problems: Yes Hx Dialysis: Yes - [facility]-LAST DIALYSIS 07/06/2019 Hx Neurological Problems: No Hx Transient Ischemic Attacks: Yes - ACUTE ISCHEMIC HEART DISEASE Hx Vertigo: Yes Hx Weakness: Yes - MUSCLE WEAKNESS PHYSICAL EXAMINATION: VITAL SIGNS: Blood pressure 196/68, pulse is 88, respirations 18, temperature 98. General Appearance: alert, obese, Chronically Ill On arrival to in emergency room patient had elevated blood pressure and tachycardia Neck: full range of motion, no JVD Respiratory: wheezing, coarse rhonchi Abdomen soft Lower extremity 1-2+ edema LABORATORY DATA: Labs show white count of only 2, hemoglobin 11.2, hematocrit 32.5, and platelet count of 42. Sodium is 129, potassium 6.8, BUN of 91, white count of 8, and glucose of 238. BNP is more than 35,000. Troponin is negative. . Assessment/Plan Impression: 70-year-old female with end-stage renal disease Presented with volume overload and hyperkalemia Suspected COVID-19 virus infection Hypertensive emergency Diabetes mellitus CHF Suggestions: Stat hemodialysis ordered. Kayexalate for high potassium. Pulmonary support with oxygen or BiPAP as needed Blood pressure support with proper parameters Per orders Francis Falk MD Jul 17, 2020 10:28
--- NOTE | 2020-07-17 11:07 | NUR ---
ED Nurse Note: report given to SIDNEY Sanchez on 2E.
--- NOTE | 2020-07-17 11:09 | NUR ---
NURSE NOTES: Receieved report from SIDNEY Munoz in ER.
--- NOTE | 2020-07-17 11:15 | NUR ---
NURSE NOTES: Received Pt from SIDNEY Rockwell. Pt is crying, tongue is mildly bleeding. Otherwise Pt is stable, on 2LPM NC saturating 97% unlabored even breathing. Pt reports mild pain on tongue otherwise, no s.s or complaint of distress at this time. PRERY Toro RN bedside for HD. Consent from POA/Pt daughter acquired. Pt vitals upon arrival: 196/68, 88 HR, 99% spo2, 18RR, 98.0F axillary. SHAMEKA AV shunt noted. IV on R wrist. Pt bed low and locked, call light in reach and bed alarm on. pt verbalized understanding to call for help.
--- NOTE | 2020-07-17 11:25 | NUR ---
ED Nurse Note: Pt transferred safely to 2E on the monitor. Transferred with all belongings. Pt accidentally bit her tongue. Bleeding noted in mouth. Mouth cleaned. SIDNEY Sanchez made aware.
--- NOTE | 2020-07-17 12:54 | Cardiac Electrophysiology PN ---
Subjective Subjective [id number] Objective Last 24 Hour Vital Signs Date Time Temp Pulse Resp B/P (MAP) Pulse Ox O2 Delivery O2 Flow Rate FiO2 07/17/20 12:00 98.0 88 18 196/68 (110) 97 07/17/20 12:00 Nasal Cannula 3.0 07/17/20 11:25 99.2 88 20 148/73 97 Nasal Cannula 3.0 100 07/17/20 10:05 81 20 142/66 99 Nasal Cannula 3.0 07/17/20 08:00 99.0 89 20 145/69 97 Non-Rebreather 15.0 100 07/17/20 06:01 99.1 86 19 152/62 100 Non-Rebreather 15.0 07/17/20 05:53 152/62 07/17/20 04:00 99.1 85 19 140/30 94 Nasal Cannula 4.0 07/17/20 01:00 99.1 87 19 130/51 94 Nasal Cannula 4.0 07/17/20 00:00 99.1 85 18 151/70 92 Nasal Cannula 4.0 07/16/20 23:00 99.1 71 19 142/26 95 Nasal Cannula 4.0 07/16/20 22:09 78 32 100 100 07/16/20 20:48 99.1 75 25 159/53 100 Bi-pap 100 07/16/20 19:44 97 32 98 100 07/16/20 19:26 253/217 07/16/20 19:26 253/217 07/16/20 19:21 253/217 07/16/20 19:10 99.1 101 18 253/217 92 Room Air 07/16/20 19:10 63 18 Room Air 07/16/20 18:44 99.1 63 18 253/217 (229) 92 Room Air Laboratory Tests Test 07/16/20 19:15 07/16/20 23:05 07/17/20 05:00 07/17/20 08:00 White Blood Count 1.8 K/UL (4.8-10.8) *L 2.0 K/UL (4.8-10.8) *L Red Blood Count 3.42 M/UL (4.20-5.40) L 3.29 M/UL (4.20-5.40) L Hemoglobin 11.8 G/DL (12.0-16.0) L 11.2 G/DL (12.0-16.0) L Hematocrit 33.8 % (37.0-47.0) L 32.5 % (37.0-47.0) L Mean Corpuscular Volume 99 FL (80-99) 99 FL (80-99) Mean Corpuscular Hemoglobin 34.6 PG (27.0-31.0) H 33.9 PG (27.0-31.0) H Mean Corpuscular Hemoglobin Concent 35.0 G/DL (32.0-36.0) 34.3 G/DL (32.0-36.0) Red Cell Distribution Width 15.9 % (11.6-14.8) H 15.6 % (11.6-14.8) H Platelet Count 36 K/UL (150-450) L 42 K/UL (150-450) L Mean Platelet Volume 11.4 FL (6.5-10.1) H 11.0 FL (6.5-10.1) H Neutrophils (%) (Auto) % (45.0-75.0) % (45.0-75.0) Lymphocytes (%) (Auto) % (20.0-45.0) % (20.0-45.0) Monocytes (%) (Auto) % (1.0-10.0) % (1.0-10.0) Eosinophils (%) (Auto) % (0.0-3.0) % (0.0-3.0) Basophils (%) (Auto) % (0.0-2.0) % (0.0-2.0) Differential Total Cells Counted 100 100 Neutrophils % (Manual) 78 % (45-75) H 94 % (45-75) H Lymphocytes % (Manual) 15 % (20-45) L 4 % (20-45) L Monocytes % (Manual) 6 % (1-10) 2 % (1-10) Eosinophils % (Manual) 0 % (0-3) 0 % (0-3) Basophils % (Manual) 1 % (0-2) 0 % (0-2) Band Neutrophils 0 % (0-8) 0 % (0-8) Platelet Estimate Decreased L Decreased L Platelet Morphology Normal Hypochromasia 1+ Anisocytosis 1+ 1+ Macrocytosis 1+ Prothrombin Time 12.3 SEC (9.30-11.50) H Prothromb Time International Ratio 1.1 (0.9-1.1) Activated Partial Thromboplast Time 36 SEC (23-33) H D-Dimer 1.53 mg/L FEU (0.00-0.49) H Sodium Level 129 MMOL/L (136-145) L 129 MMOL/L (136-145) L Potassium Level 5.7 MMOL/L (3.5-5.1) H 6.8 MMOL/L (3.5-5.1) *H Chloride Level 90 MMOL/L (98-107) L 91 MMOL/L (98-107) L Carbon Dioxide Level 27 MMOL/L (21-32) 24 MMOL/L (21-32) Anion Gap 12 mmol/L (5-15) 14 mmol/L (5-15) Blood Urea Nitrogen 85 mg/dL (7-18) H 91 mg/dL (7-18) H Creatinine 7.7 MG/DL (0.55-1.30) H 8.0 MG/DL (0.55-1.30) H Estimat Glomerular Filtration Rate 5.2 mL/min (>60) 5.0 mL/min (>60) Glucose Level 212 MG/DL (74-106) H 238 MG/DL (74-106) H Lactic Acid Level 1.20 mmol/L (0.4-2.0) Calcium Level 9.1 MG/DL (8.5-10.1) 8.5 MG/DL (8.5-10.1) Ferritin > 2000 NG/ML (8-388) H Total Bilirubin 1.5 MG/DL (0.2-1.0) H 1.4 MG/DL (0.2-1.0) H Direct Bilirubin 0.9 MG/DL (0.0-0.3) H 0.7 MG/DL (0.0-0.3) H Aspartate Amino Transf (AST/SGOT) 31 U/L (15-37) 29 U/L (15-37) Alanine Aminotransferase (ALT/SGPT) 11 U/L (12-78) L 9 U/L (12-78) L Alkaline Phosphatase 441 U/L (46-116) H 411 U/L (46-116) H Lactate Dehydrogenase 203 U/L (81-234) Total Creatine Kinase 126 U/L (26-308) Creatine Kinase MB 7.4 NG/ML (0.0-3.6) H Creatine Kinase MB Relative Index 5.8 Troponin I 0.032 ng/mL (0.000-0.056) C-Reactive Protein, Quantitative 8.4 mg/dL (0.00-0.90) H 8.5 mg/dL (0.00-0.90) H Pro-B-Type Natriuretic Peptide > 34332 pg/mL (0-125) H Pending Total Protein 8.1 G/DL (6.4-8.2) 7.8 G/DL (6.4-8.2) Albumin 3.4 G/DL (3.4-5.0) 3.2 G/DL (3.4-5.0) L Globulin 4.7 g/dL 4.6 g/dL Albumin/Globulin Ratio 0.7 (1.0-2.7) L 0.7 (1.0-2.7) L Lipase 93 U/L (73-393) Arterial Blood pH 7.353 (7.350-7.450) Arterial Blood Partial Pressure CO2 40.1 mmHg (35.0-45.0) Arterial Blood Partial Pressure O2 113.4 mmHg (75.0-100.0) H Arterial Blood HCO3 21.8 mmol/L (22.0-26.0) L Arterial Blood Oxygen Saturation 97.9 % (95-100) Arterial Blood Base Excess -3.5 (-2-2) L Faheem Test Positive Hemoglobin A1c 6.4 % (4.3-6.0) H Uric Acid 7.4 MG/DL (2.6-7.2) H Phosphorus Level 7.2 MG/DL (2.5-4.9) H Magnesium Level 2.2 MG/DL (1.8-2.4) Gamma Glutamyl Transpeptidase 917 U/L (5-85) H Triglycerides Level 146 MG/DL (30-150) Cholesterol Level 111 MG/DL (< 200) LDL Cholesterol 53 mg/dL (<100) HDL Cholesterol 35 MG/DL (40-60) L Cholesterol/HDL Ratio 3.2 (3.3-4.4) L Folate 50.9 NG/ML (8.6-58.9) Thyroid Stimulating Hormone (TSH) 4.240 uiU/mL (0.358-3.740) Hepatitis B Surface Antigen Pending Microbiology Date/Time Source Procedure Growth Status 07/17/20 08:20 Nasopharynx SARS-CoV-2 RdRp Gene Assay - Final Complete Zev Gatica MD Jul 17, 2020 12:54
--- NOTE | 2020-07-17 13:10 | NUR ---
NURSE NOTES: Pt pulling at medical devices, specifically HD needle when SIDNEY Toro was doing HD. PERRY Toro RN reported Pt threw bedpan with urine at HD machine. Pt unable to be calmed with TV, reorientation or distraction. Pt persistently restless, combative and pulling at medical devices. Restraint order received from Dr Sawant along with Seroquel order, order acknowledged and carried out. B soft wrist restraints placed on Pt. Pulse palatable, skin intact, cap refill <3 seconds.
[2020-07-17] MEDS: dilTIAZem HCl 60mg tab ORAL SCH ×2 (13:42→21:20)
[2020-07-17] MEDS: Sodium Polystyrene Sulfonate 15gm Powder ORAL SCH ×2 (13:42→14:00)
--- NOTE | 2020-07-17 14:26 | NUR ---
NURSE NOTES: Patient refused medication spit out, crying, unable to reorient or educate.
[2020-07-17] MEDS ORDERED: Varibar Pudding 230ml MC PRN (15:00)
[2020-07-17] MEDS ORDERED: Varibar Nectar 240ml MC PRN (15:00)
[2020-07-17] MEDS ORDERED: Varibar Honey 250ml MC PRN (15:00)
[2020-07-17] MEDS ORDERED: Varibar Thin Liquid powder 148gm MC PRN (15:00)
--- NOTE | 2020-07-17 15:35 | Diagnostic Imaging Report ---
Indication: Shortness of breath Technique: One view of the chest Comparison: 06/21/2019 Findings: The heart is enlarged. There is bilateral interstitial and airspace edema versus infiltrates, worse than that demonstrated previously. No definite pleural fluid, like on the prior exam. Impression: Bilateral interstitial airspace opacities, likely reflect pulmonary edema, pneumonia also possible. Correlate with clinical findings Cardiomegaly
--- NOTE | 2020-07-17 16:51 | NUR ---
NURSE NOTES: Pt crying inconsolably, unable to be calmed. notified family and inquired Pts baseline. Family said this has happened a few times, Hx of anxiety but not Pt baseline. Md Grajeda notified, awaiitng call back.
--- NOTE | 2020-07-17 17:00 | Consultation ---
DATE OF CONSULTATION: 07/17/2020 CARDIOLOGY CONSULTATION REFERRING PHYSICIAN: Makenna Daniel MD REASON FOR CONSULTATION: Accelerated hypertension in COVID patient and hyperkalemia. HISTORY OF PRESENT ILLNESS: The patient is a 70-year-old lady who was brought in by daughter for increasing shortness of breath. The patient has end-stage renal disease, on hemodialysis, is followed by Dr. Falk. The patient is positive for coronavirus. The patient was noted to have accelerated hypertension with the blood pressure in the 200 range. The patient was admitted and a cardiology consultation was obtained for further evaluation. At the time of my evaluation, the patient's blood pressure was still 196/68. REVIEW OF SYSTEMS: Negative other than what is mentioned in history of present illness. PAST MEDICAL HISTORY: As mentioned above. FAMILY HISTORY: Noncontributory. SOCIAL HISTORY: She lives at home. Does not smoke or drink alcohol. PHYSICAL EXAMINATION: VITAL SIGNS: Blood pressure 196/68, pulse is 88, respirations 18, temperature 98. HEAD AND NECK: Showed no JVD. LUNGS: Coarse rhonchi. CARDIOVASCULAR: Regular S1 and S2 with no gallop or murmur. ABDOMEN: Soft. EXTREMITIES: No pitting edema. LABORATORY DATA: Labs show white count of only 2, hemoglobin 11.2, hematocrit 32.5, and platelet count of 42. Sodium is 129, potassium 6.8, BUN of 91, white count of 8, and glucose of 238. BNP is more than 35,000. Troponin is negative. ASSESSMENT AND PLAN: 1. Accelerated hypertension. The patient is already on hydralazine 50 mg every 8 hours. The patient was also on Cardizem 60 mg every 8 hours as an outpatient and it would be resumed. The patient is also on p.r.n. clonidine as well. We will get an echocardiogram and repeat the troponin in view of her accelerated hypertension and shortness of breath. 2. Severe hyperkalemia. No cardiac arrhythmia was noted despite potassium of 6.8. Currently in sinus rhythm. The patient is getting hemodialysis under management of Dr. Falk. 3. End-stage renal disease, now on hemodialysis. 4. Hyponatremia, sodium 129. Fluid restriction per Dr. Falk. 5. Volume overload, BNP of more than 35,000. Again, echocardiogram is pending. Thank you very much Dr. Daniel for allowing me to participate in the care of this patient. Please do not hesitate to contact me for any questions regarding my evaluation. Zev Gatica M.D. DR: RITCHIE JOB#: [id number] CC:
--- NOTE | 2020-07-17 17:09 | NUR ---
NURSE NOTES: Blood glucose 120.
[2020-07-17] MEDS ORDERED: LORazepam Inj 2mg/ml 1ml IM SCH (17:30)
--- NOTE | 2020-07-17 17:35 | NUR ---
NURSE HAND-OFF REPORT: Important Events on Shift: patient admitted inpatient to , Pt crying inconsolably throughout shift, Pt removed needle during HD, soft B restraints applied Patient Status: fc, stale Diet: NPO Pending Orders: Pending Results/Labs: Pending MD notification: Latest Vital Signs: Temperature 97.9 , Pulse 69 , B/P 126 /65 , Respiratory Rate 17 , O2 SAT 100 , Nasal Cannula, O2 Flow Rate 3.0 . Vital Sign Comment: EKG Rhythm: Sinus Rhythm Rhythm change?: N MD Notified?: - MD Response: Latest Elizabeth Fall Score: 35 Fall Risk: Medium Risk Safety Measures: Call light Within Reach, Bed Alarm Zone 2, Side Rails Side Rails x3, Bed position Low and Locked. Fall Precautions: Yellow Socks Yellow Gown Door Sign Patient Fall Education Report to be given. Addendum: 07/17/20 at 1951 by Laura Alexander RN RN report given to danielle LITTLE. Pt is stable.
--- NOTE | 2020-07-17 19:15 | Consultation ---
DATE OF CONSULTATION: 07/17/2020 REASON FOR ADMISSION: Shortness of breath, elevated blood pressure. HISTORY OF PRESENT ILLNESS: This is a 70-year-old female with past medical history of hypertension, asthma, COPD, diabetes, GI problems, end-stage renal disease on dialysis, who was brought in by daughter for increased shortness of breath. In the ER, she was found to have elevated blood pressure along with increased respiratory effort and wheezing. She received MDI treatment due to her COVID-positive status. She also received clonidine and hydralazine due to severe hypertension. On evaluation today, the patient is on hemodialysis currently and she is also on soft restraints due to combativeness and noncompliance. She is currently saturating well on 3 L/min nasal cannula. Further history is limited. Chest x-ray taken in the ER is not available for review at this time. The patient tested positive for COVID-19. PAST MEDICAL HISTORY: Notable for hypertension, asthma, COPD, diabetes, GI problems, and ESRD on dialysis. SURGERIES: Unknown. ALLERGIES: No known allergies. TRAVEL HISTORY: Unknown. REVIEW OF SYSTEMS: Nonreliable. PHYSICAL EXAMINATION: VITAL SIGNS: Blood pressure 169/68, heart rate 102, respiratory rate 18, weight 81 kg, height 162 cm. HEENT: Head exam reveals that the head is normocephalic, atraumatic without deformity or unusual swelling. Pupils are round, reactive to light and accommodation normally. There is no nystagmus, lid lag, or exophthalmos. Nasal mucosa is pink. Front teeth are missing. CHEST AND LUNGS: Reveals clear, normal, symmetrical breath sounds with no adventitious sounds. No wheezing is noted. CARDIOVASCULAR: Reveals normal S1, S2. ABDOMEN: Soft with no tenderness or organomegaly. RECTAL: Deferred. MUSCULOSKELETAL: There is no tenderness to palpation. EXTREMITIES: There is no cyanosis, peripheral edema, or clubbing. There is no evidence of insufficiency or skin changes. NEUROLOGICAL: The patient appears confused. LABORATORY DATA: CBC shows WBC 2.0, hemoglobin 11.2, hematocrit 32.5, and platelet count 42,000. Chemistry shows sodium 129, potassium 6.8, chloride 91, BUN 91, creatinine 8.0, glucose 238, alkaline phosphatase 411, CRP 8.5, TSH 4.24. Hepatitis B antigen pending. ABG shows pH 7.353, pCO2 of 40.1, pO2 of 113.4, and HCO3 of 21.8. Coagulation panel shows D-dimer 1.53, PT 12.3, and aPTT 36. IMPRESSION: 1. COPD exacerbation. 2. Asthma exacerbation. 3. Possible pneumonia secondary to COVID-19. 4. Hypertensive emergency. 5. Leukocytosis. 6. Anemia. 7. Hyponatremia. 8. Hyperkalemia. 9. Hypochloridemia. 10. Hyperglycemia. 11. ESRD, on dialysis. RECOMMENDATION: Breathing treatment p.r.n.; follow up chest x-ray result; BP control per Cardiology; monitor labs; agree with current treatment and management plan. 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 The care for this patient was discussed with my supervising physician. Time spent for this case was approximately 31 minutes. Levy Allen M.D. DENG Hardin DR: Juan JOB#: [id number] CC:
--- NOTE | 2020-07-17 19:15 | NUR ---
NURSE NOTES: Got report from Laura LITTLE. Pt is very confused A+Ox0. Pt is bedbound weak has bilateral soft wrist restraints for pulling devices. Pt is on 3L NC sating 95%. Pt resting in bed comfortably with no s/s of distress or discomfort noted. 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 Pr is NPO except meds. Pt has R FA 22g slocked patent and intact. Bed in low and locked position, call light within reach, bedside table within reach. Continue to monitor.
--- NOTE | 2020-07-17 23:00 | History and Physical Report ---
DATE OF ADMISSION: 07/16/2020 HISTORY OF PRESENT ILLNESS: The patient is admitted for hypertensive crisis, fluid overload, pulmonary edema, end-stage renal disease on hemodialysis as well as COVID positive pneumonia. The patient has been complaining of shortness of breath, two pillow orthopnea. The patient is on dialysis, Dr. Falk follows her at the dialysis. The patient's daughter as well as the rest of family that the patient stays with all tested positive. The patient also had hypoglycemic episode. Denies wheezing. Does have cough. Does have shortness of breath. Admitted for pulmonary edema, needs emergent dialysis, also has elevated potassium. The patient also has hypertensive urgency and the patient is on BiPAP. Also has hyponatremia. PAST MEDICAL HISTORY: Significant for COPD, end-stage renal disease on hemodialysis, NIDDM, hypertension, history of asthma/COPD, history of diabetes, history of vertigo as well. PAST SURGICAL HISTORY: Related to dialysis. FAMILY HISTORY: Does have a history of hypertension, diabetes. SOCIAL HISTORY: The patient denies history of alcohol abuse, history of drug abuse. Comes from home, lives with her daughter and her , children, grandchildren. The patient tested positive for COVID. REVIEW OF SYSTEMS: HEENT: Denies headaches. RESPIRATORY: Reports shortness of breath and cough for couple of days. CARDIOVASCULAR: Denies chest pain. GASTROINTESTINAL: Denies nausea, vomiting, and diarrhea. EXTREMITIES: Denies pain. CENTRAL NERVOUS SYSTEM: Denies change in speech pattern. PHYSICAL EXAMINATION: VITAL SIGNS: Temperature 98, pulse 88, blood pressure 196/68, initially systolic was over 200. HEENT: PERRLA. CHEST: Bibasilar rhonchi. CARDIOVASCULAR: Tachycardic. GASTROINTESTINAL: Soft. Positive bowel sounds. No organomegaly. EXTREMITIES: A 1+ edema. Reflexes are equal on both sides. Moves all four extremities. Has generalized weakness. Dorsal pedalis pulses present. ABDOMEN: Soft and nontender. LABORATORY AND DIAGNOSTIC DATA: The patient is COVID positive. WBC of 1.8, hemoglobin 11.8, platelets of 36. Sodium 129, potassium of 5.7, BUN of 85, creatinine 7.7, glucose of 212. Troponin 0.032. ASSESSMENT AND PLAN: Respiratory failure, COVID positive pneumonia, shortness of brain, end-stage renal disease, pulmonary edema. The patient needs emergent dialysis, electrolyte imbalance, and hypertensive emergency, also had episodes of hypoglycemia. I have consulted Dr. Falk, Dr. Carl Daniels, Dr. Gatica, Dr. Levy Allen, Dr. Kalin Briseno for the above-mentioned abnormal labs, abnormal symptoms, and abnormal imaging. The patient is currently on supportive oxygen therapy. Makenna Daniel M.D. DR: Melchor JOB#: [id number] CC:
--- NOTE | 2020-07-17 23:22 | Psychiatry Consultation ---
Psychiatry Consultation Psychiatry Consultation Chief Complaint: Dyspnea/Respdistress Allergies: Coded Allergies: No Known Allergies (Unverified , 05/12/17) Medication History Scheduled Atorvastatin Calcium* (Lipitor*), 10 MG ORAL BEDTIME Calcium Acetate (Calcium Acetate), 1,334 MG PO TID, (Reported) Calcium Acetate (Calcium Acetate), 667 MG PO BID, (Reported) Diclofenac Sodium (Voltaren), 5 GM TP DAILY Diltiazem Hcl (Cardizem), 60 MG PO Q8, (Reported) Docusate Sodium* (Docusate Sodium*), 100 MG ORAL THREE TIMES A DAY, (Reported) Ezetimibe (Zetia*), 10 MG ORAL DAILY, (Reported) Gabapentin* (Gabapentin*), 100 MG ORAL Q8HR, (Reported) Hydralazine Hcl* (Hydralazine Hcl*), 50 MG ORAL EVERY 8 HOURS, (Reported) Insulin Aspart (Novolog Flexpen), 4 SUBQ NEED, (Reported) Insulin Detemir (Levemir), 20 UNITS SUBQ DAILY, (Reported) Insulin Regular, Human* (Novolin R*), 0 SUBQ .SLIDING SCALE, (Reported) Isosorbide Mononitrate (Isosorbide Mononitrate Er), 60 MG PO DAILY, (Reported) Levothyroxine Sodium (Levothyroxine Sodium), 137 MCG ORAL DAILY, (Reported) Montelukast Sodium* (Montelukast Sodium*), 10 MG ORAL QPM Pantoprazole Sodium (Protonix), 40 MG ORAL EVERY 12 HOURS, (Reported) Vitamin A & D (Vitamin A & D Ointment), 1 APPLIC TOP DAILY, (Reported) Vitamin B Cmplx/Vit C/Folic AC (Nephro-Blaze Tablet), 1 TAB ORAL DAILY, (Reported) Scheduled PRN Acetaminophen* (Acetaminophen Extra Strength*), 500 MG ORAL Q8H PRN for Fever/Headache/Mild Pain Mag Hydrox/Al Hydrox/Simeth* (Advanced Antacid Liquid*), 30 ML ORAL FOUR TIMES A DAY PRN for ANTIACID, (Reported) Ondansetron* (Zofran*), 4 MG ORAL Q6H PRN for Nausea & Vomiting, (Reported) Miscellaneous Medications [Astart], (Reported) Objective Data Height (Feet): 5 Height (Inches): 4.00 Weight (Pounds): 180 Additional Comments: waxing and waning consciousness. Mood is irritable and anxious. Affect is blunted, congruent with mood. Thought process is concrete. Thought content, no suicidal or homicidal ideation. Cognition is impaired. Insight and judgment is impaired. ASSESSMENT: [place] I Acute toxic encephalopathy. [place] II Deferred. [place] III COVID-19. [place] IV Low. [place] V 20. PLAN: 1. We will start the patient on low dose of antipsychotics. 2. The patient from the restraints. 3. Discussed with the nurse. Alecia Collins MD Jul 17, 2020 23:22
[2020-07-18] VITALS (7 sets, daily range): BP systolic 148–173; BP diastolic 55–85
[2020-07-18] MEDS: Haloperidol 5mg/ml Inj IM PRN ×2 (02:41→21:34)
[2020-07-18] MEDS: HydrALAZINE 50mg tab ORAL SCH ×3 (06:00→21:08)
[2020-07-18] MEDS: dilTIAZem HCl 60mg tab ORAL SCH ×3 (06:00→21:09)
--- NOTE | 2020-07-18 06:24 | Consultation ---
History of Present Illness General Chief Complaint: Dyspnea/Respdistress Present Illness Allergies: Coded Allergies: No Known Allergies (Unverified , 05/12/17) Medication History Scheduled Atorvastatin Calcium* (Lipitor*), 10 MG ORAL BEDTIME Calcium Acetate (Calcium Acetate), 1,334 MG PO TID, (Reported) Calcium Acetate (Calcium Acetate), 667 MG PO BID, (Reported) Diclofenac Sodium (Voltaren), 5 GM TP DAILY Diltiazem Hcl (Cardizem), 60 MG PO Q8, (Reported) Docusate Sodium* (Docusate Sodium*), 100 MG ORAL THREE TIMES A DAY, (Reported) Ezetimibe (Zetia*), 10 MG ORAL DAILY, (Reported) Gabapentin* (Gabapentin*), 100 MG ORAL Q8HR, (Reported) Hydralazine Hcl* (Hydralazine Hcl*), 50 MG ORAL EVERY 8 HOURS, (Reported) Insulin Aspart (Novolog Flexpen), 4 SUBQ NEED, (Reported) Insulin Detemir (Levemir), 20 UNITS SUBQ DAILY, (Reported) Insulin Regular, Human* (Novolin R*), 0 SUBQ .SLIDING SCALE, (Reported) Isosorbide Mononitrate (Isosorbide Mononitrate Er), 60 MG PO DAILY, (Reported) Levothyroxine Sodium (Levothyroxine Sodium), 137 MCG ORAL DAILY, (Reported) Montelukast Sodium* (Montelukast Sodium*), 10 MG ORAL QPM Pantoprazole Sodium (Protonix), 40 MG ORAL EVERY 12 HOURS, (Reported) Vitamin A & D (Vitamin A & D Ointment), 1 APPLIC TOP DAILY, (Reported) Vitamin B Cmplx/Vit C/Folic AC (Nephro-Blaze Tablet), 1 TAB ORAL DAILY, (Reported) Scheduled PRN Acetaminophen* (Acetaminophen Extra Strength*), 500 MG ORAL Q8H PRN for Fever/Headache/Mild Pain Mag Hydrox/Al Hydrox/Simeth* (Advanced Antacid Liquid*), 30 ML ORAL FOUR TIMES A DAY PRN for ANTIACID, (Reported) Ondansetron* (Zofran*), 4 MG ORAL Q6H PRN for Nausea & Vomiting, (Reported) Miscellaneous Medications [Astart], (Reported) Patient History Healthcare decision maker Resuscitation status Advanced Directive on File Physical Exam Last 24 Hour Vital Signs Date Time Temp Pulse Resp B/P (MAP) Pulse Ox O2 Delivery O2 Flow Rate FiO2 07/18/20 06:00 87 150/66 07/18/20 06:00 150/66 07/18/20 04:00 99.0 87 20 150/66 (94) 98 07/18/20 04:00 90 07/18/20 00:00 115 07/18/20 00:00 99.0 72 20 148/62 (90) 97 07/17/20 21:20 94 156/70 07/17/20 21:20 156/70 07/17/20 21:00 Nasal Cannula 3.0 07/17/20 20:00 96 07/17/20 20:00 98.8 94 16 156/70 (98) 98 07/17/20 18:07 69 17 126/65 100 07/17/20 17:30 69 17 126/65 100 07/17/20 16:00 69 07/17/20 16:00 97.9 85 17 126/65 (85) 100 07/17/20 13:42 102 196/68 07/17/20 13:42 196/68 07/17/20 12:00 98.0 88 18 196/68 (110) 97 07/17/20 12:00 102 07/17/20 12:00 Nasal Cannula 3.0 07/17/20 11:30 108 07/17/20 11:25 99.2 88 20 148/73 97 Nasal Cannula 3.0 100 07/17/20 10:05 81 20 142/66 99 Nasal Cannula 3.0 07/17/20 08:00 99.0 89 20 145/69 97 Non-Rebreather 15.0 100 Intake and Output 07/17/20 07/18/20 19:00 07:00 Output Total 3000 ml Balance -3000 ml Output Hemodialysis UF 3000 ml # Voids 1 # Bowel Movements 1 1 Laboratory Tests Test 07/17/20 08:00 Hepatitis B Surface Antigen Pending Microbiology Date/Time Source Procedure Growth Status 07/17/20 08:20 Nasopharynx SARS-CoV-2 RdRp Gene Assay - Final Complete Height (Feet): 5 Height (Inches): 4.00 Weight (Pounds): 180 Medications Current Medications Medications (Trade) Dose Ordered Sig/Toya Route PRN Reason Start Time Stop Time Status Last Admin Dose Admin Acetaminophen (Tylenol) 500 mg Q4HR PRN ORAL For Pain 07/17/20 00:00 08/16/20 00:00 Acetaminophen (Tylenol) 500 mg Q8H PRN ORAL FHMP 07/16/20 22:45 08/15/20 22:44 Albuterol Sulfate (Proventil MDI) 2 puff Q4H PRN INH Shortness of Breath 07/16/20 19:00 10/14/20 18:59 Barium Sulfate (Varibar Honey) 250 ml NOW PRN RAD 07/17/20 15:00 07/20/20 14:49 Barium Sulfate (Varibar [place]) 240 ml NOW PRN RAD 07/17/20 15:00 07/20/20 14:49 Barium Sulfate (Varibar Pudding) 230 ml NOW PRN RAD 07/17/20 15:00 07/20/20 14:49 Barium Sulfate (Varibar Thin Liquid powder) 148 gm NOW PRN RAD 07/17/20 15:00 07/20/20 14:49 Calcium Acetate (Phoslo) 1,334 mg TID ORAL 07/17/20 09:00 10/15/20 08:59 07/17/20 13:41 Clonidine HCl (Catapres Tab) 0.1 mg Q4H PRN ORAL bp over 165 syst 07/16/20 22:45 10/14/20 22:44 Diltiazem HCl (Cardizem Tab) 60 mg EVERY 8 HOURS ORAL 07/17/20 14:00 08/16/20 13:59 07/17/20 21:20 Docusate Sodium (Colace) 100 mg THREE TIMES A DAY ORAL 07/17/20 09:00 08/16/20 08:59 07/17/20 13:42 Haloperidol Lactate (Haldol) 5 mg Q6H PRN IM Agitation 07/17/20 17:30 08/31/20 17:29 07/18/20 02:41 Hydralazine HCl (Apresoline) 50 mg EVERY 8 HOURS ORAL 07/17/20 06:00 10/15/20 05:59 07/17/20 21:20 Nitroglycerin (Ntg) 0.4 mg Q5M PRN SL Prn Chest Pain 07/16/20 19:00 08/15/20 18:59 07/16/20 19:26 Pantoprazole (Protonix) 40 mg BID ORAL 07/17/20 18:00 08/16/20 08:59 Quetiapine Fumarate (SEROqueL) 50 mg Q12HR ORAL 07/17/20 14:00 08/31/20 13:59 07/17/20 21:19 Assessment/Plan Assessment/Plan: Hematology Consultation REQ MD: Makenna Faustin RFC: Pancytopenia DOS: 07/18/2020 Present Illness HPI Patient is a 70-year-old female well known to me, brought in by daughter after increased shortness of breath. Prior history of end-stage renal disease on dialysis. Patient is followed by Dr. Falk. Dr. Falk contacted the hospital. Per the patient's daughter patient is coronavirus positive. Apparently had hypoglycemic episode. Patient was more short of breath today. Heme consulted for pancytopenia. Allergies: No Known Allergies (Unverified , 05/12/17) COVID-19 Screening Contact w/high risk pt: No Recent Travel to affected area: No Experienced COVID-19 symptoms?: No Patient History Past Medical History: see triage record, DM, dialysis Reviewed Nursing Documentation: PMH: Agreed; PSxH: Agreed Nursing Documentation-PMH Hx Cardiac Problems: Yes Hx Hypertension: Yes Hx Pacemaker: No Hx Asthma: Yes Hx COPD: Yes Hx Diabetes: Yes Hx Cancer: No Hx Gastrointestinal Problems: Yes Hx Dialysis: Yes - M W F-LAST DIALYSIS 07/06/2019 Hx Neurological Problems: No Hx Transient Ischemic Attacks: Yes - ACUTE ISCHEMIC HEART DISEASE Hx Dementia: No Hx Alzheimer's Disease: No Hx Parkinson's Disease: No Hx Meningitis: No Hx Encephalitis: No Hx Seizures: No Hx Epilepsy: No Hx Multiple Sclerosis: No Hx Cerebral Palsy: No Hx Amyotrophic Lat Sclerosis: No Hx Guillian-[place] Syndrome: No Hx Paralysis: No Hx Peripheral Neuropathy: No Hx Spinal Cord Injury: No Hx Head Trauma: No Hx Traumatic Brain Injury: No Hx Memory Loss: No Hx Concentration Difficulty: No Hx Speech Problem: No Hx Tremors: No Hx Vertigo: Yes Hx Dizziness: No Hx Syncope: No Hx Headaches: No Hx Aphasia: No Hx Dysphasia: No Hx Numbness: No Hx Weakness: Yes - MUSCLE WEAKNESS Hx Fatigue: No Hx Neurologic Surgery: No Hx Brain Shunt: No Review of Systems Physical Exam General Appearance: alert, obese, Chronically Ill Neck: full range of motion Respiratory: wheezing Cardiovascular: edema Gastrointestinal: normal inspection, soft Neurologic: alert, curb setter III-XII nml as tested Psychiatric: normal inspection, judgement/insight normal Skin: other Labs: reviewed Imaging: noted ER Course 12/15 - AM labs with hyperkalemia. K+ = 6.8. Kayexelate, calcium, D50 and insulin given. 642 EKG - NSR 83, right axis. NSSTTW changes. No peaked T waves. 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 Assessment/Plan 1. Pancytopenia with hx anemia due to underlying chronic disease. Have reviewed prior workup, ferritin is >1000, though percent saturation Tsat <30, but not recommended for further iron, also with covid19++++ --> Continue to closely monitor. --> Transfuse if hgb <7 --> ferritin is >1000 --> give epogen, has been started 3x a week --> as per renal --> monitor for gi bleed, gi consulted --> hgb trend 7.8-->9.3->8.9->>11 --> plt 42 2. Leukopenia likely reactive process v infection v from meds --> hepatitis and hiv prior negative --> neutropenic precautions if ANC <1500 --> trending stable --> imaging reviewed and no hsm / cirrhosis noted --> wbc 2.7-->3.6->>>2 --> ANC goal >1500 3. End-stage renal disease, on hemodialysis three times a week. --> renal consulted --> continue hd 4. History of coronary artery disease. --> cards reviewed --> diuresis prn 5. History of anemia due to low B12, low iron --> b12 is currently within normal limits --> reobtain q6mo 6. Dizziness and unsteady gait 7. DVt ppsx with SCDs Greatly appreciate consultation and Carl Quintana RN, MD Jul 18, 2020 06:24
--- NOTE | 2020-07-18 08:00 | NUR ---
NURSE HAND-OFF REPORT: Important Events on Shift:[] Patient Status: [STABLE] Diet: [NPO] Pending Orders: [] Pending Results/Labs:[] Pending MD notification:[] Latest Vital Signs: Temperature 99.0 , Pulse 101 , B/P 161 /66 , Respiratory Rate 25 , O2 SAT 97 , Nasal Cannula, O2 Flow Rate 3.0 . Vital Sign Comment: [] EKG Rhythm: Sinus Rhythm Rhythm change?: N MD Notified?: - MD Response: Latest Elizabeth Fall Score: 35 Fall Risk: Medium Risk Safety Measures: Call light Within Reach, Bed Alarm Zone 1, Side Rails Side Rails x3, Bed position Low and Locked. Fall Precautions: Yellow Socks Yellow Gown Door Sign Patient Fall Education Report given to [FLORES RN].
--- NOTE | 2020-07-18 08:26 | NUR ---
NURSE NOTES: pt is irritable in bed, showing signs of anxiety. pt is on restraints and pulses are palpable, no redness and no swelling noted. pt is on nasal cannula 3L. lips were very dry on assessment and lubricant was applied. bed is locked and in lowest position, call light within reach. encouraged to use call light when needed. will continue plan of care.
[2020-07-18 08:58] LABS: HEMATOCRIT 32.7 % (37.0-47.0); HEMOGLOBIN 10.9 G/DL (12.0-16.0); MEAN CORPUSCULAR VOLUME 102 FL (80-99); PLATELET COUNT 46 K/UL (150-450); RED BLOOD COUNT 3.19 M/UL (4.20-5.40); RED CELL DISTRIBUTION WIDTH 15.4 % (11.6-14.8); WHITE BLOOD COUNT 4.5 K/UL (4.8-10.8)
[2020-07-18 09:22] LABS: ALBUMIN 3.2 G/DL (3.4-5.0); ALBUMIN/GLOBULIN RATIO 0.7 (1.0-2.7); BILIRUBIN,TOTAL 1.7 MG/DL (0.2-1.0); CALCIUM 8.2 MG/DL (8.5-10.1); CREATININE 6.2 MG/DL (0.55-1.30); PHOSPHORUS 5.8 MG/DL (2.5-4.9); POTASSIUM 4.9 MMOL/L (3.5-5.1)
[2020-07-18] MEDS: Docusate 100mg cap ORAL SCH ×3 (10:07→18:25)
--- NOTE | 2020-07-18 12:10 | Cardiac Electrophysiology PN ---
Assessment/Plan Assessment/Plan 1. Accelerated hypertension. On hydralazine 50 mg every 8 hours and Cardizem 60 mg every 8 hours and p.r.n. clonidine. Echo EF 40- 45% 2. Severe hyperkalemia. No cardiac arrhythmia was noted despite potassium of 6.8. Currently in sinus rhythm. The patient is getting hemodialysis under management of Dr. Falk. 3. End-stage renal disease, now on hemodialysis. 4. Hyponatremia, sodium 129. Fluid restriction per Dr. Falk. 5. Volume overload, BNP of more than 35,000 and EF 40-45%. On HD 6. Covid positive DW RN Subjective Subjective Npo except meds. Confused in restraints. Had HD x 3 liter yesterday. In Covid isolation. On [address] evaluation pending. Objective Last 24 Hour Vital Signs Date Time Temp Pulse Resp B/P (MAP) Pulse Ox O2 Delivery O2 Flow Rate FiO2 07/18/20 08:00 99.1 102 20 165/85 (111) 99 07/18/20 08:00 108 07/18/20 06:00 87 150/66 07/18/20 06:00 150/66 07/18/20 04:00 99.0 87 20 150/66 (94) 98 07/18/20 04:00 90 07/18/20 00:00 115 07/18/20 00:00 99.0 72 20 148/62 (90) 97 07/17/20 21:20 94 156/70 07/17/20 21:20 156/70 07/17/20 21:00 Nasal Cannula 3.0 07/17/20 20:00 96 07/17/20 20:00 98.8 94 16 156/70 (98) 98 07/17/20 18:07 69 17 126/65 100 07/17/20 17:30 69 17 126/65 100 07/17/20 16:00 69 07/17/20 16:00 97.9 85 17 126/65 (85) 100 07/17/20 13:42 102 196/68 07/17/20 13:42 196/68 Intake and Output 07/17/20 07/18/20 19:00 07:00 Output Total 3000 ml Balance -3000 ml Output Hemodialysis UF 3000 ml # Voids 3 # Bowel Movements 1 1 Laboratory Tests Test 07/18/20 08:25 White Blood Count 4.5 K/UL (4.8-10.8) #L Red Blood Count 3.19 M/UL (4.20-5.40) L Hemoglobin 10.9 G/DL (12.0-16.0) L Hematocrit 32.7 % (37.0-47.0) L Mean Corpuscular Volume 102 FL (80-99) H Mean Corpuscular Hemoglobin 34.1 PG (27.0-31.0) H Mean Corpuscular Hemoglobin Concent 33.3 G/DL (32.0-36.0) Red Cell Distribution Width 15.4 % (11.6-14.8) H Platelet Count 46 K/UL (150-450) L Mean Platelet Volume 8.6 FL (6.5-10.1) Neutrophils (%) (Auto) % (45.0-75.0) Lymphocytes (%) (Auto) % (20.0-45.0) Monocytes (%) (Auto) % (1.0-10.0) Eosinophils (%) (Auto) % (0.0-3.0) Basophils (%) (Auto) % (0.0-2.0) Differential Total Cells Counted 100 Neutrophils % (Manual) 90 % (45-75) H Lymphocytes % (Manual) 7 % (20-45) L Monocytes % (Manual) 3 % (1-10) Eosinophils % (Manual) 0 % (0-3) Basophils % (Manual) 0 % (0-2) Band Neutrophils 0 % (0-8) Platelet Estimate Decreased L Platelet Morphology Normal Anisocytosis 1+ Macrocytosis 1+ Sodium Level 140 MMOL/L (136-145) Potassium Level 4.9 MMOL/L (3.5-5.1) Chloride Level 100 MMOL/L (98-107) Carbon Dioxide Level 27 MMOL/L (21-32) Anion Gap 13 mmol/L (5-15) Blood Urea Nitrogen 60 mg/dL (7-18) H Creatinine 6.2 MG/DL (0.55-1.30) H Estimat Glomerular Filtration Rate 6.7 mL/min (>60) Glucose Level 226 MG/DL (74-106) H Calcium Level 8.2 MG/DL (8.5-10.1) L Phosphorus Level 5.8 MG/DL (2.5-4.9) H Magnesium Level 2.4 MG/DL (1.8-2.4) Total Bilirubin 1.7 MG/DL (0.2-1.0) H Direct Bilirubin 1.0 MG/DL (0.0-0.3) H Aspartate Amino Transf (AST/SGOT) 55 U/L (15-37) H Alanine Aminotransferase (ALT/SGPT) 14 U/L (12-78) Alkaline Phosphatase 362 U/L (46-116) H Total Protein 8.0 G/DL (6.4-8.2) Albumin 3.2 G/DL (3.4-5.0) L Globulin 4.8 g/dL Albumin/Globulin Ratio 0.7 (1.0-2.7) L Microbiology Date/Time Source Procedure Growth Status 07/17/20 08:20 Nasopharynx SARS-CoV-2 RdRp Gene Assay - Final Complete 07/16/20 04:00 Rectum VRE Culture - Preliminary Resulted Objective HEAD AND NECK: Showed no JVD. LUNGS: Coarse rhonchi. CARDIOVASCULAR: Regular S1 and S2 with no gallop or murmur. ABDOMEN: Soft. EXTREMITIES: No pitting edema. Zev Gatica MD Jul 18, 2020 12:10
[2020-07-18] MEDS ORDERED: Azithromycin 250mg tab ORAL SCH (12:15)
--- NOTE | 2020-07-18 12:52 | NUR ---
NURSE NOTES: Dialysis nurse on unit, RN notified her regarding HD, She will dialyzed patient later. No need to call VIP
--- NOTE | 2020-07-18 14:46 | Pulmonology Progress Note ---
Subjective ROS Limited/Unobtainable: Yes Interval Events: irritable, confufsed Allergies: Coded Allergies: No Known Allergies (Unverified , 05/12/17) Objective Last 24 Hour Vital Signs Date Time Temp Pulse Resp B/P (MAP) Pulse Ox O2 Delivery O2 Flow Rate FiO2 07/18/20 14:00 102 173/55 07/18/20 14:00 173/55 07/18/20 12:00 98.1 88 26 173/55 (94) 97 07/18/20 12:00 102 07/18/20 09:00 98.1 88 24 173/55 (94) 97 07/18/20 09:00 Nasal Cannula 3.0 07/18/20 08:00 99.1 102 20 165/85 (111) 99 07/18/20 08:00 108 07/18/20 06:00 87 150/66 07/18/20 06:00 150/66 07/18/20 04:00 99.0 87 20 150/66 (94) 98 07/18/20 04:00 90 07/18/20 00:00 115 07/18/20 00:00 99.0 72 20 148/62 (90) 97 07/17/20 21:20 94 156/70 07/17/20 21:20 156/70 07/17/20 21:00 Nasal Cannula 3.0 07/17/20 20:00 96 07/17/20 20:00 98.8 94 16 156/70 (98) 98 07/17/20 18:07 69 17 126/65 100 07/17/20 17:30 69 17 126/65 100 07/17/20 16:00 69 07/17/20 16:00 97.9 85 17 126/65 (85) 100 Intake and Output 07/17/20 07/18/20 19:00 07:00 Output Total 3000 ml Balance -3000 ml Output Hemodialysis UF 3000 ml # Voids 3 # Bowel Movements 1 1 Objective 07/18/2020 saturating well on 3 lpm NC General Appearance: WD/WN, no acute distress, other - on soft restraints HEENT: normocephalic Respiratory: lungs clear Cardiovascular: normal rate, regular rhythm Microbiology Date/Time Source Procedure Growth Status 07/17/20 08:20 Nasopharynx SARS-CoV-2 RdRp Gene Assay - Final Complete 07/16/20 04:00 Rectum VRE Culture - Preliminary Resulted Laboratory Tests 07/18/20 08:25: White Blood Count 4.5#L, Red Blood Count 3.19L, Hemoglobin 10.9L, Hematocrit 32.7L, Mean Corpuscular Volume 102H, Mean Corpuscular Hemoglobin 34.1H, Mean Corpuscular Hemoglobin Concent 33.3, Red Cell Distribution Width 15.4H, Platelet Count 46L, Mean Platelet Volume 8.6, Neutrophils (%) (Auto) , Lymphocytes (%) (Auto) , Monocytes (%) (Auto) , Eosinophils (%) (Auto) , Basophils (%) (Auto) , Differential Total Cells Counted 100, Neutrophils % (Manual) 90H, Lymphocytes % (Manual) 7L, Monocytes % (Manual) 3, Eosinophils % (Manual) 0, Basophils % (Manual) 0, Band Neutrophils 0, Platelet Estimate DecreasedL, Platelet Morphology Normal, Anisocytosis 1+, Macrocytosis 1+, Sodium Level 140, Potassium Level 4.9, Chloride Level 100, Carbon Dioxide Level 27, Anion Gap 13, Blood Urea Nitrogen 60H, Creatinine 6.2H, Estimat Glomerular Filtration Rate 6.7, Glucose Level 226H, Calcium Level 8.2L, Phosphorus Level 5.8H, Magnesium Level 2.4, Total Bilirubin 1.7H, Direct Bilirubin 1.0H, Aspartate Amino Transf (AST/SGOT) 55H, Alanine Aminotransferase (ALT/SGPT) 14, Alkaline Phosphatase 362H, Total Protein 8.0, Albumin 3.2L, Globulin 4.8, Albumin/Globulin Ratio 0.7L Current Medications Medications (Trade) Dose Ordered Sig/Toya Route PRN Reason Start Time Stop Time Status Last Admin Dose Admin Acetaminophen (Tylenol) 500 mg Q4HR PRN ORAL For Pain 07/17/20 00:00 08/16/20 00:00 Acetaminophen (Tylenol) 500 mg Q8H PRN ORAL FHMP 07/16/20 22:45 08/15/20 22:44 Albuterol Sulfate (Proventil MDI) 2 puff Q4H PRN INH Shortness of Breath 07/16/20 19:00 10/14/20 18:59 Azithromycin (Zithromax) 250 mg DAILY ORAL 07/19/20 09:00 07/26/20 08:59 Barium Sulfate (Varibar Honey) 250 ml NOW PRN RAD 07/17/20 15:00 07/20/20 14:49 Barium Sulfate (Varibar [place]) 240 ml NOW PRN MC RAD 07/17/20 15:00 07/20/20 14:49 Barium Sulfate (Varibar Pudding) 230 ml NOW PRN RAD 07/17/20 15:00 07/20/20 14:49 Barium Sulfate (Varibar Thin Liquid powder) 148 gm NOW PRN RAD 07/17/20 15:00 07/20/20 14:49 Calcium Acetate (Phoslo) 1,334 mg TID ORAL 07/17/20 09:00 10/15/20 08:59 07/18/20 12:26 Clonidine HCl (Catapres Tab) 0.1 mg Q4H PRN ORAL bp over 165 syst 07/16/20 22:45 10/14/20 22:44 Dexamethasone (Decadron) 6 mg ONCE ORAL 07/18/20 12:15 07/18/20 15:00 07/18/20 12:27 Diltiazem HCl (Cardizem Tab) 60 mg EVERY 8 HOURS ORAL 07/17/20 14:00 08/16/20 13:59 07/17/20 21:20 Docusate Sodium (Colace) 100 mg THREE TIMES A DAY ORAL 07/17/20 09:00 08/16/20 08:59 07/18/20 12:26 Haloperidol Lactate (Haldol) 5 mg Q6H PRN IM Agitation 07/17/20 17:30 08/31/20 17:29 07/18/20 02:41 Hydralazine HCl (Apresoline) 50 mg EVERY 8 HOURS ORAL 07/17/20 06:00 10/15/20 05:59 07/17/20 21:20 Nitroglycerin (Ntg) 0.4 mg Q5M PRN SL Prn Chest Pain 07/16/20 19:00 08/15/20 18:59 07/16/20 19:26 Pantoprazole (Protonix) 40 mg BID ORAL 07/17/20 18:00 08/16/20 08:59 07/18/20 10:08 Quetiapine Fumarate (SEROqueL) 50 mg Q12HR ORAL 07/17/20 14:00 08/31/20 13:59 07/18/20 10:08 Assessment/Plan Assessment/Plan 1. COVID-19 pneumonia. 2. COPD exacerbation. - on breathing tx prn 3. Pneumonia - CXR shows b/l opacities - on decadron 4. Hypertensive emergency. - BP control per cardiology 5. Leukocytosis.; improving 6. Anemia. 7. Hyponatremia.; resolved 8. Hyperkalemia.; resolved 9. Hypochloridemia.; resolved 10. Hyperglycemia. 11. ESRD, on dialysis. 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 Continue O2 Steroids Defer Remdesivir choice to ID The care for this patient was discussed with my supervising physician. The patient was seen and examined at bedside and all new and available data was reviewed in the patients chart. I agree with the above findings, impression, and plan. (Patient was seen earlier today. Signature timestamp does not reflect patient encounter time) Levy Allen MD Time spent for this case was approximately 31 minutes. Agustín Wadsworth Jul 18, 2020 14:46 Levy Allen MD Jul 18, 2020 17:33
--- NOTE | 2020-07-18 15:17 | NUR ---
CASE MANAGEMENT:REVIEW PRESENTED TO ER BY DAUGHTER CC; SOB PMH: ESRD ON HD SI: HYPERTENSIVE CRISIS. HYPERKALEMIA. ESRD COVID 19 DETECTED 99.2 63 18 253/217 92% ON RA WBC-1.8 D-DIMER+1.53 BUN+85 CR+7.7 NA-129 K+6.8 IS: IV DECADRON IV HYDRALAZINE IV CA GLUCONATE IV INSULIN KAYEXALATE MD CLONIDINE PO CXR BLOOD CX
--- NOTE | 2020-07-18 17:57 | Nephrology Progress Note ---
Assessment/Plan Problem List: (1) Hypertensive kidney disease (2) ESRD (end stage renal disease) (3) Hyperkalemia (4) Suspected 2019 novel coronavirus infection Assessment 70-year-old female with end-stage renal disease Presented with volume overload and hyperkalemia Suspected COVID-19 virus infection Hypertensive emergency Diabetes mellitus CHF Plan July 18: Patient encephalopathic, was dialyzed yesterday and had 3 L removed . Will order dialysis again today. Continue per ID. Blood pressure medication adjusted. July 17: Stat hemodialysis ordered. Kayexalate for high potassium. Pulmonary support with oxygen or BiPAP as needed Blood pressure support with proper parameters Per orders Subjective ROS Limited/Unobtainable: Yes Objective Objective Last 24 Hour Vital Signs Date Time Temp Pulse Resp B/P (MAP) Pulse Ox O2 Delivery O2 Flow Rate FiO2 07/18/20 16:00 88 07/18/20 16:00 98.1 88 26 173/55 (94) 97 07/18/20 14:00 102 173/55 07/18/20 14:00 173/55 07/18/20 12:00 98.1 88 26 173/55 (94) 97 07/18/20 12:00 102 07/18/20 09:00 98.1 88 24 173/55 (94) 97 07/18/20 09:00 Nasal Cannula 3.0 07/18/20 08:00 99.1 102 20 165/85 (111) 99 07/18/20 08:00 108 07/18/20 06:00 87 150/66 07/18/20 06:00 150/66 07/18/20 04:00 99.0 87 20 150/66 (94) 98 07/18/20 04:00 90 07/18/20 00:00 115 07/18/20 00:00 99.0 72 20 148/62 (90) 97 07/17/20 21:20 94 156/70 07/17/20 21:20 156/70 07/17/20 21:00 Nasal Cannula 3.0 07/17/20 20:00 96 07/17/20 20:00 98.8 94 16 156/70 (98) 98 07/17/20 18:07 69 17 126/65 100 Intake and Output 07/17/20 07/18/20 19:00 07:00 Output Total 3000 ml Balance -3000 ml Output Hemodialysis UF 3000 ml # Voids 3 # Bowel Movements 1 1 Current Medications Medications (Trade) Dose Ordered Sig/Toya Route PRN Reason Start Time Stop Time Status Last Admin Dose Admin Acetaminophen (Tylenol) 500 mg Q4HR PRN ORAL For Pain 07/17/20 00:00 08/16/20 00:00 Acetaminophen (Tylenol) 500 mg Q8H PRN ORAL FHMP 07/16/20 22:45 08/15/20 22:44 Albuterol Sulfate (Proventil MDI) 2 puff Q4H PRN INH Shortness of Breath 07/16/20 19:00 10/14/20 18:59 Azithromycin (Zithromax) 250 mg DAILY ORAL 07/19/20 09:00 07/26/20 08:59 Barium Sulfate (Varibar Honey) 250 ml NOW PRN MC RAD 07/17/20 15:00 07/20/20 14:49 Barium Sulfate (Varibar [place]) 240 ml NOW PRN MC RAD 07/17/20 15:00 07/20/20 14:49 Barium Sulfate (Varibar Pudding) 230 ml NOW PRN MC RAD 07/17/20 15:00 07/20/20 14:49 Barium Sulfate (Varibar Thin Liquid powder) 148 gm NOW PRN MC RAD 07/17/20 15:00 07/20/20 14:49 Calcium Acetate (Phoslo) 1,334 mg TID ORAL 07/17/20 09:00 10/15/20 08:59 07/18/20 12:26 Clonidine HCl (Catapres Tab) 0.1 mg Q4H PRN ORAL bp over 165 syst 07/16/20 22:45 10/14/20 22:44 Diltiazem HCl (Cardizem Tab) 60 mg EVERY 8 HOURS ORAL 07/17/20 14:00 08/16/20 13:59 07/17/20 21:20 Docusate Sodium (Colace) 100 mg THREE TIMES A DAY ORAL 07/17/20 09:00 08/16/20 08:59 07/18/20 12:26 Haloperidol Lactate (Haldol) 5 mg Q6H PRN IM Agitation 07/17/20 17:30 08/31/20 17:29 07/18/20 02:41 Hydralazine HCl (Apresoline) 50 mg EVERY 8 HOURS ORAL 07/17/20 06:00 10/15/20 05:59 07/17/20 21:20 Nitroglycerin (Ntg) 0.4 mg Q5M PRN SL Prn Chest Pain 07/16/20 19:00 08/15/20 18:59 07/16/20 19:26 Pantoprazole (Protonix) 40 mg BID ORAL 07/17/20 18:00 08/16/20 08:59 07/18/20 10:08 Quetiapine Fumarate (SEROqueL) 50 mg Q12HR ORAL 07/17/20 14:00 08/31/20 13:59 07/18/20 10:08 Laboratory Tests 07/18/20 08:25: White Blood Count 4.5#L, Red Blood Count 3.19L, Hemoglobin 10.9L, Hematocrit 32.7L, Mean Corpuscular Volume 102H, Mean Corpuscular Hemoglobin 34.1H, Mean Corpuscular Hemoglobin Concent 33.3, Red Cell Distribution Width 15.4H, Platelet Count 46L, Mean Platelet Volume 8.6, Neutrophils (%) (Auto) , Lymphocytes (%) (Auto) , Monocytes (%) (Auto) , Eosinophils (%) (Auto) , Basophils (%) (Auto) , Differential Total Cells Counted 100, Neutrophils % (Manual) 90H, Lymphocytes % (Manual) 7L, Monocytes % (Manual) 3, Eosinophils % (Manual) 0, Basophils % (Manual) 0, Band Neutrophils 0, Platelet Estimate DecreasedL, Platelet Morphology Normal, Anisocytosis 1+, Macrocytosis 1+, Sodium Level 140, Potassium Level 4.9, Chloride Level 100, Carbon Dioxide Level 27, Anion Gap 13, Blood Urea Nitrogen 60H, Creatinine 6.2H, Estimat Glomerular Filtration Rate 6.7, Glucose Level 226H, Calcium Level 8.2L, Phosphorus Level 5.8H, Magnesium Level 2.4, Total Bilirubin 1.7H, Direct Bilirubin 1.0H, Aspartate Amino Transf (AST/SGOT) 55H, Alanine Aminotransferase (ALT/SGPT) 14, Alkaline Phosphatase 362H, Total Protein 8.0, Albumin 3.2L, Globulin 4.8, Albumin/Globulin Ratio 0.7L Height (Feet): 5 Height (Inches): 4.00 Weight (Pounds): 180 General Appearance: lethargic, confused Cardiovascular: tachycardia Respiratory/Chest: decreased breath sounds Abdomen: distended Francis Falk MD Jul 18, 2020 17:57
--- NOTE | 2020-07-18 19:00 | Consultation ---
DATE OF CONSULTATION: 07/18/2020 INFECTIOUS DISEASE CONSULTATION CONSULTING PHYSICIAN: Kalin Briseno MD PRIMARY ATTENDING: Makenna Daniel MD REASON FOR CONSULTATION: COVID-19 disease. HISTORY OF PRESENT ILLNESS: This is a 70-year-old female admitted on 07/16/2020 from home. Patient has end-stage renal disease, on hemodialysis. She came with shortness of breath. Currently, she is confused, on restraints, not a source of history. Patient seems to have some dry coughing. PAST MEDICAL HISTORY: End-stage renal disease, hypertension, asthma, COPD. Has a history of blood in stool. Had endoscopy done that showed gastric AV malformation, gastritis, Has diabetes mellitus, anemia. ALLERGIES: No known drug allergies. MEDICATIONS: Getting Protonix, haloperidol, Seroquel, diltiazem, Colace, calcium acetate, hydralazine, Tylenol, clonidine, albuterol, nitroglycerin. SOCIAL HISTORY: Single. No other history obtainable. PHYSICAL EXAMINATION: VITAL SIGNS: Temperature 99.1, pulse 102, blood pressure 165/85. GENERAL APPEARANCE: Seems to be overweight. HEAD AND NECK: [place] conjunctivae. HEART: Tachycardic. LUNGS: Getting oxygen by nasal cannula at 3 L, seems clear. ABDOMEN: Soft. EXTREMITIES: No edema. LABORATORY DATA: Echocardiogram showed ejection fraction of 40 to 45%, moderate aortic calcification, and aortic stenosis. WBC 4.5, hemoglobin 10.9, hematocrit 33.7, platelets are 46. Sodium 140, potassium 4.9, potassium at the time of admission was 6.8, BUN 60, creatinine 6.2, glucose is 222. BNP was elevated at 68,728. Bilirubin is 1.7, AST 55, alkaline phosphatase is 362. Chest x-ray showed cardiomegaly, bilateral interstitial airspace opacity, pulmonary edema or pneumonia. COVID test was positive. HBS antigens are negative. IMPRESSION: COVID-19 disease, altered mental status and encephalopathy, end-stage renal disease on hemodialysis, COPD, asthma, hypertension, pancytopenia, diabetes mellitus with hyperglycemia, hypertension, systolic heart failure, aortic stenosis. RECOMMENDATION: We will start patient on dexamethasone. We will follow up the patient's clinical course. We will follow up the cultures. At the end of my exam, I thank Dr. Daniel for involving me in the care of this patient. Kalin Briseno M.D. DR: ALYSIA JOB#: [id number] CC: EDGAR
--- NOTE | 2020-07-18 19:18 | NUR ---
NURSE HAND-OFF REPORT: Important Events on Shift:[] endorsed plan of care. RN is aware that pt will be transferred to ICU for HD. Patient Status: [] full code Diet: [] NPO except meds and ice chips. Pending Orders: [] Pending Results/Labs:[] abdominal ultrasound Pending MD notification:[] Latest Vital Signs: Temperature 98.1 , Pulse 88 , B/P 173 /55 , Respiratory Rate 26 , O2 SAT 97 , Nasal Cannula, O2 Flow Rate 3.0 . Vital Sign Comment: [] EKG Rhythm: Sinus Rhythm Rhythm change?: N MD Notified?: - MD Response: Latest Eilzabeth Fall Score: 35 Fall Risk: Medium Risk Safety Measures: Call light Within Reach, Bed Alarm Zone 1, Side Rails Side Rails x3, Bed position Low and Locked. Fall Precautions: Yellow Socks Yellow Gown Door Sign Patient Fall Education Report given to [].
--- NOTE | 2020-07-18 19:20 | NUR ---
NURSE NOTES: Got report from Clarita RN. Pt is very confused A+Ox0. Pt is bedbound weak has bilateral soft wrist restraints for pulling devices. Pt is on 3L NC sating 95%. Pt resting in bed comfortably with no s/s of distress or discomfort noted. Pt running NSR on the nurse monitoring. Pr is NPO except meds. Pt has R FA 22g slocked patent and intact. Bed in low and locked position, call light within reach, bedside table within reach. Continue to monitor.
--- NOTE | 2020-07-18 20:15 | Consultation ---
DATE OF CONSULTATION: 07/18/2020 CONSULTING PHYSICIAN: Alecia Collins M.D. HISTORY OF PRESENT ILLNESS: The patient is a 70-year-old female with a history of hypertension, dementia, COVID positive pneumonia, who is admitted to the hospital for medical stabilization. The patient presents with waxing, waning consciousness, episodes of agitation, pulling out lines and was placed on restraints. The patient is severely agitated. Poor memory. PAST PSYCHIATRIC HISTORY: Dementia, outside of the hospital, the patient is not taking any psychotropic medications. PAST MEDICAL HISTORY: Hypertension, COPD, end-stage renal disease on hemodialysis, diabetes, vertigo. ALLERGIES: No known drug allergies. SUBSTANCE ABUSE HISTORY: No known history of illicit drug use or alcohol. MENTAL STATUS EXAMINATION: The patient is having waxing and waning consciousness. Mood is irritable and anxious. Affect is blunted, congruent with mood. Thought process is concrete. Thought content, no suicidal or homicidal ideation. Cognition is impaired. Insight and judgment is impaired. ASSESSMENT: Benge I Acute toxic encephalopathy. Benge II Deferred. Benge III COVID-19. Benge IV Low. Benge V 20. PLAN: 1. We will start the patient on low dose of antipsychotics. 2. The patient from the restraints. 3. Discussed with the nurse. Alecia Collins M.D. DR: MEMA JOB#: [id number] CC:
--- NOTE | 2020-07-18 21:35 | General Progress Note ---
Subjective ROS Limited/Unobtainable: Yes Allergies: Coded Allergies: No Known Allergies (Unverified , 05/12/17) Objective Last 24 Hour Vital Signs Date Time Temp Pulse Resp B/P (MAP) Pulse Ox O2 Delivery O2 Flow Rate FiO2 07/18/20 21:09 100 190/80 07/18/20 21:08 190/80 07/18/20 20:00 98.7 95 25 165/70 (101) 97 07/18/20 16:00 88 07/18/20 16:00 98.1 88 26 173/55 (94) 97 07/18/20 14:00 102 173/55 07/18/20 14:00 173/55 07/18/20 12:00 98.1 88 26 173/55 (94) 97 07/18/20 12:00 102 07/18/20 09:00 98.1 88 24 173/55 (94) 97 07/18/20 09:00 Nasal Cannula 3.0 07/18/20 08:00 99.1 102 20 165/85 (111) 99 07/18/20 08:00 108 07/18/20 06:00 87 150/66 07/18/20 06:00 150/66 07/18/20 04:00 99.0 87 20 150/66 (94) 98 07/18/20 04:00 90 07/18/20 00:00 115 07/18/20 00:00 99.0 72 20 148/62 (90) 97 Intake and Output 07/17/20 07/18/20 19:00 07:00 Output Total 3000 ml Balance -3000 ml Output Hemodialysis UF 3000 ml # Voids 3 # Bowel Movements 1 1 Laboratory Tests 07/18/20 08:25: White Blood Count 4.5#L, Red Blood Count 3.19L, Hemoglobin 10.9L, Hematocrit 32.7L, Mean Corpuscular Volume 102H, Mean Corpuscular Hemoglobin 34.1H, Mean Corpuscular Hemoglobin Concent 33.3, Red Cell Distribution Width 15.4H, Platelet Count 46L, Mean Platelet Volume 8.6, Neutrophils (%) (Auto) , Lymphocytes (%) (Auto) , Monocytes (%) (Auto) , Eosinophils (%) (Auto) , Basophils (%) (Auto) , Differential Total Cells Counted 100, Neutrophils % (Manual) 90H, Lymphocytes % (Manual) 7L, Monocytes % (Manual) 3, Eosinophils % (Manual) 0, Basophils % (Manual) 0, Band Neutrophils 0, Platelet Estimate DecreasedL, Platelet Morphology Normal, Anisocytosis 1+, Macrocytosis 1+, Sodium Level 140, Potassium Level 4.9, Chloride Level 100, Carbon Dioxide Level 27, Anion Gap 13, Blood Urea Nitrogen 60H, Creatinine 6.2H, Estimat Glomerular Filtration Rate 6.7, Glucose Level 226H, Calcium Level 8.2L, Phosphorus Level 5.8H, Magnesium Level 2.4, Total Bilirubin 1.7H, Direct Bilirubin 1.0H, Aspartate Amino Transf (AST/SGOT) 55H, Alanine Aminotransferase (ALT/SGPT) 14, Alkaline Phosphatase 362H, Total Protein 8.0, Albumin 3.2L, Globulin 4.8, Albumin/Globulin Ratio 0.7L Height (Feet): 5 Height (Inches): 4.00 Weight (Pounds): 180 Assessment/Plan Problem List: (1) Pneumonia ICD Codes: J18.9 - Pneumonia, unspecified organism SNOMED: 296133143 (2) Hypertension ICD Codes: I10 - Essential (primary) hypertension SNOMED: 00655964 (3) Renal failure ICD Codes: N19 - Unspecified kidney failure SNOMED: 39162553 (4) Anemia in chronic kidney disease (CKD) ICD Codes: N18.9 - Chronic kidney disease, unspecified; D63.1 - Anemia in chronic kidney disease SNOMED: 225783709 (5) weakness (6) ESRD (end stage renal disease) ICD Codes: N18.6 - End stage renal disease SNOMED: 63641299 (7) Diabetic nephropathy with proteinuria ICD Codes: E11.21 - Type 2 diabetes mellitus with diabetic nephropathy SNOMED: 91651608, 713055204 Status: deteriorating Assessment/Plan: respiratory worsening niddm covid positive pna copd htn getting worse Makenna Daniel MD Jul 18, 2020 21:35
[2020-07-19 01:00] VITALS: BP 161/66
--- NOTE | 2020-07-19 01:00 | NUR ---
NURSE NOTES: Pt back from Dialysis. 3L out. Pt hypertensive BP:165/66. Notified Dr. Falk. All scheduled and prn bp meds given earlier. Per Dr. Falk no new orders.
[2020-07-19 04:00] VITALS: BP 165/70
[2020-07-19] MEDS: HydrALAZINE 50mg tab ORAL SCH ×3 (05:55→17:54)
[2020-07-19] MEDS: dilTIAZem HCl 60mg tab ORAL SCH (05:55)
--- NOTE | 2020-07-19 06:26 | Hematology/Onc Progress Note ---
Assessment/Plan Assessment/Plan Assessment/Plan 1. Pancytopenia with hx anemia due to underlying chronic disease. Have reviewed prior workup, ferritin is >1000, though percent saturation Tsat <30, but not recommended for further iron, also with covid19++++ --> Continue to closely monitor. --> Transfuse if hgb <7 --> ferritin is >1000 --> give epogen, has been started 3x a week --> as per renal --> monitor for gi bleed, gi consulted --> hgb trend 7.8-->9.3->8.9->>11 --> plt 42 2. Leukopenia likely reactive process v infection v from meds --> hepatitis and hiv prior negative --> neutropenic precautions if ANC <1500 --> trending stable --> imaging reviewed and no hsm / cirrhosis noted --> wbc 2.7-->3.6->>>2 --> ANC goal >1500 3. End-stage renal disease, on hemodialysis three times a week. --> renal consulted --> continue hd 4. History of coronary artery disease. --> cards reviewed --> diuresis prn 5. History of anemia due to low B12, low iron --> b12 is currently within normal limits --> reobtain q6mo 6. Dizziness and unsteady gait 7. DVt ppsx with SCDs Greatly appreciate consultation and Selvin RN Subjective Allergies: Coded Allergies: No Known Allergies (Unverified , 05/12/17) Subjective 07/19 meds noted, s/p hd, bp has improved, no bleeding, labs reviewed Objective Objective Current Medications Medications (Trade) Dose Ordered Sig/Toya Route PRN Reason Start Time Stop Time Status Last Admin Dose Admin Acetaminophen (Tylenol) 500 mg Q4HR PRN ORAL For Pain 07/17/20 00:00 08/16/20 00:00 Acetaminophen (Tylenol) 500 mg Q8H PRN ORAL FHMP 07/16/20 22:45 08/15/20 22:44 Albuterol Sulfate (Proventil MDI) 2 puff Q4H PRN INH Shortness of Breath 07/16/20 19:00 10/14/20 18:59 Azithromycin (Zithromax) 250 mg DAILY ORAL 07/19/20 09:00 07/26/20 08:59 Barium Sulfate (Varibar Honey) 250 ml NOW PRN RAD 07/17/20 15:00 07/20/20 14:49 Barium Sulfate (Varibar [place]) 240 ml NOW PRN RAD 07/17/20 15:00 07/20/20 14:49 Barium Sulfate (Varibar Pudding) 230 ml NOW PRN RAD 07/17/20 15:00 07/20/20 14:49 Barium Sulfate (Varibar Thin Liquid powder) 148 gm NOW PRN RAD 07/17/20 15:00 07/20/20 14:49 Calcium Acetate (Phoslo) 1,334 mg TID ORAL 07/17/20 09:00 10/15/20 08:59 07/18/20 18:25 Clonidine HCl (Catapres Tab) 0.1 mg Q4H PRN ORAL bp over 165 syst 07/16/20 22:45 10/14/20 22:44 07/18/20 23:38 Diltiazem HCl (Cardizem Tab) 60 mg EVERY 8 HOURS ORAL 07/17/20 14:00 08/16/20 13:59 07/19/20 05:55 Docusate Sodium (Colace) 100 mg THREE TIMES A DAY ORAL 07/17/20 09:00 08/16/20 08:59 07/18/20 18:25 Haloperidol Lactate (Haldol) 5 mg Q6H PRN IM Agitation 07/17/20 17:30 08/31/20 17:29 07/18/20 21:34 Hydralazine HCl (Apresoline) 50 mg EVERY 8 HOURS ORAL 07/17/20 06:00 10/15/20 05:59 07/19/20 05:55 Nitroglycerin (Ntg) 0.4 mg Q5M PRN SL Prn Chest Pain 07/16/20 19:00 08/15/20 18:59 07/16/20 19:26 Pantoprazole (Protonix) 40 mg BID ORAL 07/17/20 18:00 08/16/20 08:59 07/18/20 18:25 Quetiapine Fumarate (SEROqueL) 50 mg Q12HR ORAL 07/17/20 14:00 08/31/20 13:59 07/18/20 21:08 Last 24 Hour Vital Signs Date Time Temp Pulse Resp B/P (MAP) Pulse Ox O2 Delivery O2 Flow Rate FiO2 07/19/20 05:55 90 165/70 07/19/20 05:55 165/70 07/19/20 04:00 83 07/19/20 04:00 99.0 102 24 165/70 (101) 100 07/19/20 01:00 99.0 101 25 161/66 (97) 97 07/19/20 00:00 99 07/18/20 23:38 195/80 07/18/20 21:09 100 190/80 07/18/20 21:08 190/80 07/18/20 21:00 Nasal Cannula 3.0 07/18/20 20:00 98.7 95 25 165/70 (101) 97 07/18/20 20:00 83 07/18/20 16:00 88 07/18/20 16:00 98.1 88 26 173/55 (94) 97 07/18/20 14:00 102 173/55 07/18/20 14:00 173/55 07/18/20 12:00 98.1 88 26 173/55 (94) 97 07/18/20 12:00 102 07/18/20 09:00 98.1 88 24 173/55 (94) 97 07/18/20 09:00 Nasal Cannula 3.0 07/18/20 08:00 99.1 102 20 165/85 (111) 99 07/18/20 08:00 108 07/18/20 06:00 87 150/66 07/18/20 06:00 150/66 07/18/20 04:00 99.0 87 20 150/66 (94) 98 07/18/20 04:00 90 07/18/20 00:00 115 07/18/20 00:00 99.0 72 20 148/62 (90) 97 07/17/20 21:20 94 156/70 07/17/20 21:20 156/70 07/17/20 21:00 Nasal Cannula 3.0 07/17/20 20:00 96 07/17/20 20:00 98.8 94 16 156/70 (98) 98 07/17/20 18:07 69 17 126/65 100 07/17/20 17:30 69 17 126/65 100 07/17/20 16:00 69 07/17/20 16:00 97.9 85 17 126/65 (85) 100 07/17/20 13:42 102 196/68 07/17/20 13:42 196/68 07/17/20 12:00 98.0 88 18 196/68 (110) 97 07/17/20 12:00 102 07/17/20 12:00 Nasal Cannula 3.0 07/17/20 11:30 108 07/17/20 11:25 99.2 88 20 148/73 97 Nasal Cannula 3.0 100 07/17/20 10:05 81 20 142/66 99 Nasal Cannula 3.0 07/17/20 08:00 99.0 89 20 145/69 97 Non-Rebreather 15.0 100 Intake and Output 07/18/20 07/19/20 19:00 07:00 Intake Total 160 ml Balance 160 ml Intake Oral 160 ml Labs Test 07/16/20 19:15 07/16/20 23:05 07/17/20 05:00 07/17/20 08:00 White Blood Count 1.8 K/UL (4.8-10.8) 2.0 K/UL (4.8-10.8) Red Blood Count 3.42 M/UL (4.20-5.40) 3.29 M/UL (4.20-5.40) Hemoglobin 11.8 G/DL (12.0-16.0) 11.2 G/DL (12.0-16.0) Hematocrit 33.8 % (37.0-47.0) 32.5 % (37.0-47.0) Mean Corpuscular Volume 99 FL (80-99) 99 FL (80-99) Mean Corpuscular Hemoglobin 34.6 PG (27.0-31.0) 33.9 PG (27.0-31.0) Mean Corpuscular Hemoglobin Concent 35.0 G/DL (32.0-36.0) 34.3 G/DL (32.0-36.0) Red Cell Distribution Width 15.9 % (11.6-14.8) 15.6 % (11.6-14.8) Platelet Count 36 K/UL (150-450) 42 K/UL (150-450) Mean Platelet Volume 11.4 FL (6.5-10.1) 11.0 FL (6.5-10.1) Neutrophils (%) (Auto) % (45.0-75.0) % (45.0-75.0) Lymphocytes (%) (Auto) % (20.0-45.0) % (20.0-45.0) Monocytes (%) (Auto) % (1.0-10.0) % (1.0-10.0) Eosinophils (%) (Auto) % (0.0-3.0) % (0.0-3.0) Basophils (%) (Auto) % (0.0-2.0) % (0.0-2.0) Differential Total Cells Counted 100 100 Neutrophils % (Manual) 78 % (45-75) 94 % (45-75) Lymphocytes % (Manual) 15 % (20-45) 4 % (20-45) Monocytes % (Manual) 6 % (1-10) 2 % (1-10) Eosinophils % (Manual) 0 % (0-3) 0 % (0-3) Basophils % (Manual) 1 % (0-2) 0 % (0-2) Band Neutrophils 0 % (0-8) 0 % (0-8) Platelet Estimate Decreased Decreased Platelet Morphology Normal Hypochromasia 1+ Anisocytosis 1+ 1+ Macrocytosis 1+ Prothrombin Time 12.3 SEC (9.30-11.50) Prothromb Time International Ratio 1.1 (0.9-1.1) Activated Partial Thromboplast Time 36 SEC (23-33) D-Dimer 1.53 mg/L FEU (0.00-0.49) Sodium Level 129 MMOL/L (136-145) 129 MMOL/L (136-145) Potassium Level 5.7 MMOL/L (3.5-5.1) 6.8 MMOL/L (3.5-5.1) Chloride Level 90 MMOL/L (98-107) 91 MMOL/L (98-107) Carbon Dioxide Level 27 MMOL/L (21-32) 24 MMOL/L (21-32) Anion Gap 12 mmol/L (5-15) 14 mmol/L (5-15) Blood Urea Nitrogen 85 mg/dL (7-18) 91 mg/dL (7-18) Creatinine 7.7 MG/DL (0.55-1.30) 8.0 MG/DL (0.55-1.30) Estimat Glomerular Filtration Rate 5.2 mL/min (>60) 5.0 mL/min (>60) Glucose Level 212 MG/DL (74-106) 238 MG/DL (74-106) Lactic Acid Level 1.20 mmol/L (0.4-2.0) Calcium Level 9.1 MG/DL (8.5-10.1) 8.5 MG/DL (8.5-10.1) Ferritin > 2000 NG/ML (8-388) Total Bilirubin 1.5 MG/DL (0.2-1.0) 1.4 MG/DL (0.2-1.0) Direct Bilirubin 0.9 MG/DL (0.0-0.3) 0.7 MG/DL (0.0-0.3) Aspartate Amino Transf (AST/SGOT) 31 U/L (15-37) 29 U/L (15-37) Alanine Aminotransferase (ALT/SGPT) 11 U/L (12-78) 9 U/L (12-78) Alkaline Phosphatase 441 U/L (46-116) 411 U/L (46-116) Lactate Dehydrogenase 203 U/L (81-234) Total Creatine Kinase 126 U/L (26-308) Creatine Kinase MB 7.4 NG/ML (0.0-3.6) Creatine Kinase MB Relative Index 5.8 Troponin I 0.032 ng/mL (0.000-0.056) C-Reactive Protein, Quantitative 8.4 mg/dL (0.00-0.90) 8.5 mg/dL (0.00-0.90) Pro-B-Type Natriuretic Peptide > 60251 pg/mL (0-125) 31363 pg/mL (0-125) Total Protein 8.1 G/DL (6.4-8.2) 7.8 G/DL (6.4-8.2) Albumin 3.4 G/DL (3.4-5.0) 3.2 G/DL (3.4-5.0) Globulin 4.7 g/dL 4.6 g/dL Albumin/Globulin Ratio 0.7 (1.0-2.7) 0.7 (1.0-2.7) Lipase 93 U/L (73-393) Arterial Blood pH 7.353 (7.350-7.450) Arterial Blood Partial Pressure CO2 40.1 mmHg (35.0-45.0) Arterial Blood Partial Pressure O2 113.4 mmHg (75.0-100.0) Arterial Blood HCO3 21.8 mmol/L (22.0-26.0) Arterial Blood Oxygen Saturation 97.9 % (95-100) Arterial Blood Base Excess -3.5 (-2-2) Faheem Test Positive Hemoglobin A1c 6.4 % (4.3-6.0) Uric Acid 7.4 MG/DL (2.6-7.2) Phosphorus Level 7.2 MG/DL (2.5-4.9) Magnesium Level 2.2 MG/DL (1.8-2.4) Gamma Glutamyl Transpeptidase 917 U/L (5-85) Triglycerides Level 146 MG/DL (30-150) Cholesterol Level 111 MG/DL (< 200) LDL Cholesterol 53 mg/dL (<100) HDL Cholesterol 35 MG/DL (40-60) Cholesterol/HDL Ratio 3.2 (3.3-4.4) Folate 50.9 NG/ML (8.6-58.9) Thyroid Stimulating Hormone (TSH) 4.240 uiU/mL (0.358-3.740) Hepatitis B Surface Antigen Negative (NEGATIVE) Test 07/18/20 08:25 White Blood Count 4.5 K/UL (4.8-10.8) Red Blood Count 3.19 M/UL (4.20-5.40) Hemoglobin 10.9 G/DL (12.0-16.0) Hematocrit 32.7 % (37.0-47.0) Mean Corpuscular Volume 102 FL (80-99) Mean Corpuscular Hemoglobin 34.1 PG (27.0-31.0) Mean Corpuscular Hemoglobin Concent 33.3 G/DL (32.0-36.0) Red Cell Distribution Width 15.4 % (11.6-14.8) Platelet Count 46 K/UL (150-450) Mean Platelet Volume 8.6 FL (6.5-10.1) Neutrophils (%) (Auto) % (45.0-75.0) Lymphocytes (%) (Auto) % (20.0-45.0) Monocytes (%) (Auto) % (1.0-10.0) Eosinophils (%) (Auto) % (0.0-3.0) Basophils (%) (Auto) % (0.0-2.0) Differential Total Cells Counted 100 Neutrophils % (Manual) 90 % (45-75) Lymphocytes % (Manual) 7 % (20-45) Monocytes % (Manual) 3 % (1-10) Eosinophils % (Manual) 0 % (0-3) Basophils % (Manual) 0 % (0-2) Band Neutrophils 0 % (0-8) Platelet Estimate Decreased Platelet Morphology Normal Anisocytosis 1+ Macrocytosis 1+ Sodium Level 140 MMOL/L (136-145) Potassium Level 4.9 MMOL/L (3.5-5.1) Chloride Level 100 MMOL/L (98-107) Carbon Dioxide Level 27 MMOL/L (21-32) Anion Gap 13 mmol/L (5-15) Blood Urea Nitrogen 60 mg/dL (7-18) Creatinine 6.2 MG/DL (0.55-1.30) Estimat Glomerular Filtration Rate 6.7 mL/min (>60) Glucose Level 226 MG/DL (74-106) Calcium Level 8.2 MG/DL (8.5-10.1) Phosphorus Level 5.8 MG/DL (2.5-4.9) Magnesium Level 2.4 MG/DL (1.8-2.4) Total Bilirubin 1.7 MG/DL (0.2-1.0) Direct Bilirubin 1.0 MG/DL (0.0-0.3) Aspartate Amino Transf (AST/SGOT) 55 U/L (15-37) Alanine Aminotransferase (ALT/SGPT) 14 U/L (12-78) Alkaline Phosphatase 362 U/L (46-116) Total Protein 8.0 G/DL (6.4-8.2) Albumin 3.2 G/DL (3.4-5.0) Globulin 4.8 g/dL Albumin/Globulin Ratio 0.7 (1.0-2.7) Height (Feet): 5 Height (Inches): 4.00 Weight (Pounds): 180 Objective Physical Exam General Appearance: alert, obese, Chronically Ill Neck: full range of motion Respiratory: wheezing Cardiovascular: edema Gastrointestinal: normal inspection, soft Neurologic: alert, licensed clinician III-XII nml as tested Psychiatric: normal inspection, judgement/insight normal Skin: other Carl Daniels MD Jul 19, 2020 06:26
--- NOTE | 2020-07-19 07:15 | NUR ---
NURSE HAND-OFF REPORT: Important Events on Shift:[] Patient Status: [STABLE] Diet: [NPO] Pending Orders: [] Pending Results/Labs:[] Pending MD notification:[] Latest Vital Signs: Temperature 99.0 , Pulse 90 , B/P 165 /70 , Respiratory Rate 24 , O2 SAT 100 , Nasal Cannula, O2 Flow Rate 3.0 . Vital Sign Comment: [] EKG Rhythm: Sinus Rhythm Rhythm change?: N MD Notified?: - MD Response: Latest Elizabeth Fall Score: 35 Fall Risk: Medium Risk Safety Measures: Call light Within Reach, Bed Alarm Zone 1, Side Rails Side Rails x3, Bed position Low and Locked. Fall Precautions: Yellow Socks Yellow Gown Door Sign Patient Fall Education Report given to [FLORES RN].
--- NOTE | 2020-07-19 07:15 | NUR ---
NURSE NOTES: Received report from Ger/RN, Patient is asleep, lying semi-welch's, restless. AAO x 1-2, On 3L nasal canula, no acute distress/SOB noted at this time. NPO since admission. IV on right FA, intact and patent. Able to make needs known. On bilateral soft wrist restraint for safety. Bed in lowest position and locked, Call light within reach. Encouraged to use call light when needed. Will continue plan of care.
[2020-07-19 08:00] VITALS: BP 111/58
[2020-07-19 08:20] LABS: HEMATOCRIT 29.3 % (37.0-47.0); HEMOGLOBIN 9.9 G/DL (12.0-16.0); MEAN CORPUSCULAR VOLUME 102 FL (80-99); PLATELET COUNT 65 K/UL (150-450); RED BLOOD COUNT 2.88 M/UL (4.20-5.40); RED CELL DISTRIBUTION WIDTH 15.2 % (11.6-14.8); WHITE BLOOD COUNT 4.8 K/UL (4.8-10.8)
--- NOTE | 2020-07-19 08:43 | NUR ---
RD ASSESSMENT & RECOMMENDATIONS SEE CARE ACTIVITY FOR COMPLETE ASSESSMENT DAILY ESTIMATED NEEDS: Needs based on ESRD on HD, DM 54 adj 25-30 kcals/kg [id number] total kcals 1.2-1.8 g protein/kg 65-97 g total protein Fluid per MD, on HD NUTRITION DIAGNOSIS: 1) Increased kcal and protein needs R/T renal dysfunction as evidenced by pt w/ESRD on HD, currently NPO, awaiting [employer] eval. 2) Altered nutrition related lab values R/T h/o DM as evidenced by elev FBGs (226, 238) CURRENT DIET:NPO-> DAY 3 TODAY PO DIET RECOMMENDATIONS: CCHO LOW, RENAL/ TEXTURE PER [employer] ADDITIONAL RECOMMENDATIONS: 1) Daily calibrated bedscale wt 2) Rec NISS: FBGs 200's, h/o DM Monitor closely for hypoglycemia while NPO 3) Nephrovite x 1 4) Monitor renal fxn and lytes: phos elev 5) Initiate diet in a timely manner- NPO DAY 3 today
[2020-07-19 08:56] LABS: ALANINE AMINOTRANSFERASE 16 U/L (12-78); ALBUMIN 3.1 G/DL (3.4-5.0); ALBUMIN/GLOBULIN RATIO 0.7 (1.0-2.7); ALKALINE PHOSPHATASE 320 U/L (46-116); ANION GAP 15 mmol/L (5-15); ASPARTATE AMINO TRANSFERASE 70 U/L (15-37); BILIRUBIN,TOTAL 1.9 MG/DL (0.2-1.0); BLOOD UREA NITROGEN 52 mg/dL (7-18); CARBON DIOXIDE 26 MMOL/L (21-32); CHLORIDE 99 MMOL/L (98-107); CREATININE 5.3 MG/DL (0.55-1.30); POTASSIUM 4.7 MMOL/L (3.5-5.1); SODIUM 140 MMOL/L (136-145)
[2020-07-19] MEDS: Azithromycin 250mg tab ORAL SCH (09:01)
[2020-07-19] MEDS: Docusate 100mg cap ORAL SCH ×3 (09:01→17:54)
[2020-07-19 09:03] LABS: BILIRUBIN,DIRECT 1.1 MG/DL (0.0-0.3)
--- NOTE | 2020-07-19 10:21 | Infectious Diseases Prog Note ---
Assessment/Plan Assessment/Plan IMPRESSION: COVID-19 disease, Altered mental status and encephalopathy, End-stage renal disease on hemodialysis, COPD, asthma, Hypertension, Pancytopenia, Diabetes mellitus with hyperglycemia, Systolic heart failure, aortic stenosis. RECOMMENDATION: Continue dexamethasone. We will follow up the patient's clinical course. We will follow up the cultures. Subjective ROS Limited/Unobtainable: Yes Constitutional: Denies: fever Neurologic: Reports: confusion, other - on restraint Allergies: Coded Allergies: No Known Allergies (Unverified , 05/12/17) Objective Last 24 Hour Vital Signs Date Time Temp Pulse Resp B/P (MAP) Pulse Ox O2 Delivery O2 Flow Rate FiO2 07/19/20 09:00 Nasal Cannula 3.0 07/19/20 08:00 99.3 75 18 111/58 (75) 96 07/19/20 08:00 83 07/19/20 05:55 90 165/70 07/19/20 05:55 165/70 07/19/20 04:00 83 07/19/20 04:00 99.0 102 24 165/70 (101) 100 07/19/20 01:00 99.0 101 25 161/66 (97) 97 07/19/20 00:00 99 07/18/20 23:38 195/80 07/18/20 21:09 100 190/80 07/18/20 21:08 190/80 07/18/20 21:00 Nasal Cannula 3.0 07/18/20 20:00 98.7 95 25 165/70 (101) 97 07/18/20 20:00 83 07/18/20 16:00 88 07/18/20 16:00 98.1 88 26 173/55 (94) 97 07/18/20 14:00 102 173/55 07/18/20 14:00 173/55 07/18/20 12:00 98.1 88 26 173/55 (94) 97 07/18/20 12:00 102 Height (Feet): 5 Height (Inches): 4.00 Weight (Pounds): 180 HEENT: other - dry mouth Respiratory/Chest: lungs clear, other - oxygen by nasal cannula Cardiovascular: normal rate, other - left arm AV graft Abdomen: soft, non tender Extremities: no edema Neurologic/Psychiatric: alert, disoriented Microbiology Date/Time Source Procedure Growth Status 07/17/20 08:20 Nasopharynx SARS-CoV-2 RdRp Gene Assay - Final Complete 07/16/20 19:30 Blood Blood Culture - Preliminary NO GROWTH AFTER 24 HOURS Resulted 07/16/20 19:15 Blood Blood Culture - Preliminary NO GROWTH AFTER 24 HOURS Resulted 07/16/20 18:58 Nasopharynx Coronavirus COVID-19 PCR ([facility]) - Final Complete Laboratory Tests Test 07/19/20 06:50 White Blood Count 4.8 K/UL (4.8-10.8) Red Blood Count 2.88 M/UL (4.20-5.40) L Hemoglobin 9.9 G/DL (12.0-16.0) L Hematocrit 29.3 % (37.0-47.0) L Mean Corpuscular Volume 102 FL (80-99) H Mean Corpuscular Hemoglobin 34.2 PG (27.0-31.0) H Mean Corpuscular Hemoglobin Concent 33.7 G/DL (32.0-36.0) Red Cell Distribution Width 15.2 % (11.6-14.8) H Platelet Count 65 K/UL (150-450) L Mean Platelet Volume 11.6 FL (6.5-10.1) H Neutrophils (%) (Auto) % (45.0-75.0) Lymphocytes (%) (Auto) % (20.0-45.0) Monocytes (%) (Auto) % (1.0-10.0) Eosinophils (%) (Auto) % (0.0-3.0) Basophils (%) (Auto) % (0.0-2.0) Differential Total Cells Counted 100 Neutrophils % (Manual) 87 % (45-75) H Lymphocytes % (Manual) 7 % (20-45) L Monocytes % (Manual) 6 % (1-10) Eosinophils % (Manual) 0 % (0-3) Basophils % (Manual) 0 % (0-2) Band Neutrophils 0 % (0-8) Platelet Estimate Decreased L Platelet Morphology Normal Hypochromasia 1+ Anisocytosis 1+ Sodium Level 140 MMOL/L (136-145) Potassium Level 4.7 MMOL/L (3.5-5.1) Chloride Level 99 MMOL/L (98-107) Carbon Dioxide Level 26 MMOL/L (21-32) Anion Gap 15 mmol/L (5-15) Blood Urea Nitrogen 52 mg/dL (7-18) H Creatinine 5.3 MG/DL (0.55-1.30) H Estimat Glomerular Filtration Rate 8.0 mL/min (>60) Glucose Level 235 MG/DL (74-106) H Calcium Level 9.0 MG/DL (8.5-10.1) Phosphorus Level 5.0 MG/DL (2.5-4.9) H Total Bilirubin 1.9 MG/DL (0.2-1.0) H Direct Bilirubin 1.1 MG/DL (0.0-0.3) H Aspartate Amino Transf (AST/SGOT) 70 U/L (15-37) H Alanine Aminotransferase (ALT/SGPT) 16 U/L (12-78) Alkaline Phosphatase 320 U/L (46-116) H C-Reactive Protein, Quantitative 24.3 mg/dL (0.00-0.90) H Pro-B-Type Natriuretic Peptide Pending Total Protein 7.7 G/DL (6.4-8.2) Albumin 3.1 G/DL (3.4-5.0) L Globulin 4.6 g/dL Albumin/Globulin Ratio 0.7 (1.0-2.7) L Current Medications Medications (Trade) Dose Ordered Sig/Toya Route PRN Reason Start Time Stop Time Status Last Admin Dose Admin Acetaminophen (Tylenol) 500 mg Q4HR PRN ORAL For Pain 07/17/20 00:00 08/16/20 00:00 Acetaminophen (Tylenol) 500 mg Q8H PRN ORAL FHMP 07/16/20 22:45 08/15/20 22:44 Albuterol Sulfate (Proventil MDI) 2 puff Q4H PRN INH Shortness of Breath 07/16/20 19:00 10/14/20 18:59 Azithromycin (Zithromax) 250 mg DAILY ORAL 07/19/20 09:00 07/26/20 08:59 07/19/20 09:01 Barium Sulfate (Varibar Honey) 250 ml NOW PRN MC RAD 07/17/20 15:00 07/20/20 14:49 Barium Sulfate (Varibar [place]) 240 ml NOW PRN RAD 07/17/20 15:00 07/20/20 14:49 Barium Sulfate (Varibar Pudding) 230 ml NOW PRN RAD 07/17/20 15:00 07/20/20 14:49 Barium Sulfate (Varibar Thin Liquid powder) 148 gm NOW PRN RAD 07/17/20 15:00 07/20/20 14:49 Calcium Acetate (Phoslo) 1,334 mg TID ORAL 07/17/20 09:00 10/15/20 08:59 07/19/20 09:01 Clonidine HCl (Catapres Tab) 0.1 mg Q4H PRN ORAL bp over 165 syst 07/16/20 22:45 10/14/20 22:44 07/18/20 23:38 Diltiazem HCl (Cardizem Tab) 60 mg EVERY 8 HOURS ORAL 07/17/20 14:00 08/16/20 13:59 07/19/20 05:55 Docusate Sodium (Colace) 100 mg THREE TIMES A DAY ORAL 07/17/20 09:00 08/16/20 08:59 07/19/20 09:01 Haloperidol Lactate (Haldol) 5 mg Q6H PRN IM Agitation 07/17/20 17:30 08/31/20 17:29 07/18/20 21:34 Hydralazine HCl (Apresoline) 50 mg EVERY 8 HOURS ORAL 07/17/20 06:00 10/15/20 05:59 07/19/20 05:55 Nitroglycerin (Ntg) 0.4 mg Q5M PRN SL Prn Chest Pain 07/16/20 19:00 08/15/20 18:59 07/16/20 19:26 Pantoprazole (Protonix) 40 mg BID ORAL 07/17/20 18:00 08/16/20 08:59 07/19/20 08:59 Quetiapine Fumarate (SEROqueL) 50 mg Q12HR ORAL 07/17/20 14:00 08/31/20 13:59 07/19/20 08:59 Kalin Briseno MD Jul 19, 2020 10:21
--- NOTE | 2020-07-19 10:38 | Diagnostic Imaging Report ---
Indication: Abnormal liver function tests, COVID positive patient Technique: Limited grayscale and duplex images of the upper abdomen; exam limited due to patient COVID positivity Comparison: 04/28/2019; also abdomen CT 06/21/2019 Findings: Liver measures 19 cm long axis dimension. No definite surface nodularity. It demonstrates normal echogenicity and no focal abnormality. Gallbladder contains sludge and stones. Sonographic Perez sign is reported as negative. The gallbladder wall is not thickened. Common bile duct measures 3 mm diameter. The spleen is enlarged, measuring 14 cm long axis dimension. The kidneys are echogenic. There is a right pleural effusion Impression: Enlarged liver and spleen, also previously reported Echogenic bilateral kidneys, consistent with medical renal disease, also demonstrated previously. Gallbladder stones and sludge. Negative for dilated bile ducts Right pleural effusion Previously demonstrated ascites is no longer evident Cholelithiasis and gallbladder sludge.
[2020-07-19 12:00] VITALS: BP 171/62
--- NOTE | 2020-07-19 12:10 | NUR ---
NURSE NOTES: D/C restraint, Patient has diet order, RN Fed, cleaned and repositioned patient. Bed alarm is set, Side rails up x3, will assess how pt is behaving without restraint.
--- NOTE | 2020-07-19 13:05 | NUR ---
NURSE NOTES: Patient trying to get out of bed, Not following commands, reorient and explained why pt needs to stay in room, but patient is not following orders. Received order for bilateral sofr wrist restraint. Order carried out.
[2020-07-19] MEDS: dilTIAZem HCl 90mg tab ORAL SCH ×2 (13:33→22:00)
--- NOTE | 2020-07-19 15:37 | Pulmonology Progress Note ---
Subjective ROS Limited/Unobtainable: Yes Interval Events: none major reported Constitutional: Denies: fever Allergies: Coded Allergies: No Known Allergies (Unverified , 05/12/17) Objective Last 24 Hour Vital Signs Date Time Temp Pulse Resp B/P (MAP) Pulse Ox O2 Delivery O2 Flow Rate FiO2 07/19/20 13:33 79 171/62 07/19/20 13:32 171/62 07/19/20 12:06 171/62 07/19/20 12:00 85 07/19/20 12:00 99.1 79 18 171/62 (98) 100 07/19/20 09:00 Nasal Cannula 3.0 07/19/20 08:00 99.3 75 18 111/58 (75) 96 07/19/20 08:00 83 07/19/20 05:55 90 165/70 07/19/20 05:55 165/70 07/19/20 04:00 83 07/19/20 04:00 99.0 102 24 165/70 (101) 100 07/19/20 01:00 99.0 101 25 161/66 (97) 97 07/19/20 00:00 99 07/18/20 23:38 195/80 07/18/20 21:09 100 190/80 07/18/20 21:08 190/80 07/18/20 21:00 Nasal Cannula 3.0 07/18/20 20:00 98.7 95 25 165/70 (101) 97 07/18/20 20:00 83 07/18/20 16:00 88 07/18/20 16:00 98.1 88 26 173/55 (94) 97 Intake and Output 07/18/20 07/19/20 19:00 07:00 Intake Total 160 ml Balance 160 ml Intake Oral 160 ml # Voids 2 Objective 07/19/2020 saturating well on 3 lpm NC 07/18/2020 saturating well on 3 lpm NC General Appearance: WD/WN, no acute distress, other - on soft restraints HEENT: normocephalic Respiratory: lungs clear Cardiovascular: normal rate, regular rhythm Microbiology Date/Time Source Procedure Growth Status 07/17/20 08:20 Nasopharynx SARS-CoV-2 RdRp Gene Assay - Final Complete 07/16/20 19:30 Blood Blood Culture - Preliminary NO GROWTH AFTER 48 HOURS Resulted 07/16/20 19:15 Blood Blood Culture - Preliminary NO GROWTH AFTER 48 HOURS Resulted 07/16/20 18:58 Nasopharynx Coronavirus COVID-19 PCR ([facility]) - Final Complete Laboratory Tests 07/19/20 06:50: White Blood Count 4.8, Red Blood Count 2.88L, Hemoglobin 9.9L, Hematocrit 29.3L, Mean Corpuscular Volume 102H, Mean Corpuscular Hemoglobin 34.2H, Mean Corpuscular Hemoglobin Concent 33.7, Red Cell Distribution Width 15.2H, Platelet Count 65L, Mean Platelet Volume 11.6H, Neutrophils (%) (Auto) , Lymphocytes (%) (Auto) , Monocytes (%) (Auto) , Eosinophils (%) (Auto) , Basophils (%) (Auto) , Differential Total Cells Counted 100, Neutrophils % (Manual) 87H, Lymphocytes % (Manual) 7L, Monocytes % (Manual) 6, Eosinophils % (Manual) 0, Basophils % (Manual) 0, Band Neutrophils 0, Platelet Estimate DecreasedL, Platelet Mo rphology Normal, Hypochromasia 1+, Anisocytosis 1+, Sodium Level 140, Potassium Level 4.7, Chloride Level 99, Carbon Dioxide Level 26, Anion Gap 15, Blood Urea Nitrogen 52H, Creatinine 5.3H, Estimat Glomerular Filtration Rate 8.0, Glucose Level 235H, Calcium Level 9.0, Phosphorus Level 5.0H, Total Bilirubin 1.9H, Direct Bilirubin 1.1H, Aspartate Amino Transf (AST/SGOT) 70H, Alanine Aminotransferase (ALT/SGPT) 16, Alkaline Phosphatase 320H, C-Reactive Protein, Quantitative 24.3H, Pro-B-Type Natriuretic Peptide [Pending], Total Protein 7.7, Albumin 3.1L, Globulin 4.6, Albumin/Globulin Ratio 0.7L Current Medications Medications (Trade) Dose Ordered Sig/Toya Route PRN Reason Start Time Stop Time Status Last Admin Dose Admin Acetaminophen (Tylenol) 500 mg Q4HR PRN ORAL For Pain 07/17/20 00:00 08/16/20 00:00 Acetaminophen (Tylenol) 500 mg Q8H PRN ORAL FHMP 07/16/20 22:45 08/15/20 22:44 Albuterol Sulfate (Proventil MDI) 2 puff Q4H PRN INH Shortness of Breath 07/16/20 19:00 10/14/20 18:59 Azithromycin (Zithromax) 250 mg DAILY ORAL 07/19/20 09:00 07/26/20 08:59 07/19/20 09:01 Barium Sulfate (Varibar Honey) 250 ml NOW PRN RAD 07/17/20 15:00 07/20/20 14:49 Barium Sulfate (Varibar [place]) 240 ml NOW PRN MC RAD 07/17/20 15:00 07/20/20 14:49 Barium Sulfate (Varibar Pudding) 230 ml NOW PRN MC RAD 07/17/20 15:00 07/20/20 14:49 Barium Sulfate (Varibar Thin Liquid powder) 148 gm NOW PRN RAD 07/17/20 15:00 07/20/20 14:49 Calcium Acetate (Phoslo) 1,334 mg TID ORAL 07/17/20 09:00 10/15/20 08:59 07/19/20 13:32 Clonidine HCl (Catapres Tab) 0.1 mg Q4H PRN ORAL bp over 165 syst 07/16/20 22:45 10/14/20 22:44 07/19/20 12:06 Diltiazem HCl (Cardizem Tab) 90 mg EVERY 8 HOURS ORAL 07/19/20 14:00 08/16/20 13:59 07/19/20 13:33 Docusate Sodium (Colace) 100 mg THREE TIMES A DAY ORAL 07/17/20 09:00 08/16/20 08:59 07/19/20 13:32 Haloperidol Lactate (Haldol) 5 mg Q6H PRN IM Agitation 07/17/20 17:30 08/31/20 17:29 07/18/20 21:34 Hydralazine HCl (Apresoline) 50 mg EVERY 8 HOURS ORAL 07/17/20 06:00 10/15/20 05:59 07/19/20 13:32 Nitroglycerin (Ntg) 0.4 mg Q5M PRN SL Prn Chest Pain 07/16/20 19:00 08/15/20 18:59 07/16/20 19:26 Pantoprazole (Protonix) 40 mg BID ORAL 07/17/20 18:00 08/16/20 08:59 07/19/20 08:59 Quetiapine Fumarate (SEROqueL) 50 mg Q12HR ORAL 07/17/20 14:00 08/31/20 13:59 07/19/20 08:59 Assessment/Plan Assessment/Plan Assessment/Plan 1. COVID-19 pneumonia. 2. COPD exacerbation. - on breathing tx prn 3. Pneumonia - CXR shows b/l opacities - she received decadron once which has now been discontinued 4. Hypertensive emergency. - BP control per cardiology 5. Leukocytosis.; improving 6. Anemia. 7. Hyponatremia.; resolved 8. Hyperkalemia.; resolved 9. Hypochloridemia.; resolved 10. Hyperglycemia. 11. ESRD, on dialysis. PLAN We will follow carefully as technology analyst. Continue O2 Steroids Defer Remdesivir choice to ID; renal failure precludes use The care for this patient was discussed with my supervising physician. Time spent for this case was approximately 31 minutes. The patient was seen and examined at bedside and all new and available data was reviewed in the patients chart. I agree with the above findings, impression, and plan. (Patient was seen earlier today. Signature timestamp does not reflect patient encounter time) Agustín Barton MD Jul 19, 2020 15:37 Levy Allen MD Jul 19, 2020 17:23
--- NOTE | 2020-07-19 15:39 | Cardiac Electrophysiology PN ---
Assessment/Plan Assessment/Plan 1. Accelerated hypertension. On hydralazine 50 mg every 8 hours and Cardizem 60 mg every 8 hours and p.r.n. clonidine. EF 40- 45% 2. Severe hyperkalemia. No cardiac arrhythmia was noted despite potassium of 6.8. Currently in sinus rhythm. The patient is getting hemodialysis under management of Dr. Falk. 3. End-stage renal disease, now on hemodialysis. 4. Hyponatremia, sodium 129. Fluid restriction per Dr. Falk. 5. Volume overload, BNP of more than 35,000 and EF 40-45%. On HD 6. Covid positive DW RN Subjective Subjective NPO except meds. Confused in restraints. Had HD x 3 liter yesterday . In Covid isolation. On 3 liter Nasal cannula. In SR Swallow eval still pending but started on Renal diet. Objective Last 24 Hour Vital Signs Date Time Temp Pulse Resp B/P (MAP) Pulse Ox O2 Delivery O2 Flow Rate FiO2 07/19/20 13:33 79 171/62 07/19/20 13:32 171/62 07/19/20 12:06 171/62 07/19/20 12:00 85 07/19/20 12:00 99.1 79 18 171/62 (98) 100 07/19/20 09:00 Nasal Cannula 3.0 07/19/20 08:00 99.3 75 18 111/58 (75) 96 07/19/20 08:00 83 07/19/20 05:55 90 165/70 07/19/20 05:55 165/70 07/19/20 04:00 83 07/19/20 04:00 99.0 102 24 165/70 (101) 100 07/19/20 01:00 99.0 101 25 161/66 (97) 97 07/19/20 00:00 99 07/18/20 23:38 195/80 07/18/20 21:09 100 190/80 07/18/20 21:08 190/80 07/18/20 21:00 Nasal Cannula 3.0 07/18/20 20:00 98.7 95 25 165/70 (101) 97 07/18/20 20:00 83 07/18/20 16:00 88 07/18/20 16:00 98.1 88 26 173/55 (94) 97 Intake and Output 07/18/20 07/19/20 19:00 07:00 Intake Total 160 ml Balance 160 ml Intake Oral 160 ml # Voids 2 Laboratory Tests Test 07/19/20 06:50 White Blood Count 4.8 K/UL (4.8-10.8) Red Blood Count 2.88 M/UL (4.20-5.40) L Hemoglobin 9.9 G/DL (12.0-16.0) L Hematocrit 29.3 % (37.0-47.0) L Mean Corpuscular Volume 102 FL (80-99) H Mean Corpuscular Hemoglobin 34.2 PG (27.0-31.0) H Mean Corpuscular Hemoglobin Concent 33.7 G/DL (32.0-36.0) Red Cell Distribution Width 15.2 % (11.6-14.8) H Platelet Count 65 K/UL (150-450) L Mean Platelet Volume 11.6 FL (6.5-10.1) H Neutrophils (%) (Auto) % (45.0-75.0) Lymphocytes (%) (Auto) % (20.0-45.0) Monocytes (%) (Auto) % (1.0-10.0) Eosinophils (%) (Auto) % (0.0-3.0) Basophils (%) (Auto) % (0.0-2.0) Differential Total Cells Counted 100 Neutrophils % (Manual) 87 % (45-75) H Lymphocytes % (Manual) 7 % (20-45) L Monocytes % (Manual) 6 % (1-10) Eosinophils % (Manual) 0 % (0-3) Basophils % (Manual) 0 % (0-2) Band Neutrophils 0 % (0-8) Platelet Estimate Decreased L Platelet Morphology Normal Hypochromasia 1+ Anisocytosis 1+ Sodium Level 140 MMOL/L (136-145) Potassium Level 4.7 MMOL/L (3.5-5.1) Chloride Level 99 MMOL/L (98-107) Carbon Dioxide Level 26 MMOL/L (21-32) Anion Gap 15 mmol/L (5-15) Blood Urea Nitrogen 52 mg/dL (7-18) H Creatinine 5.3 MG/DL (0.55-1.30) H Estimat Glomerular Filtration Rate 8.0 mL/min (>60) Glucose Level 235 MG/DL (74-106) H Calcium Level 9.0 MG/DL (8.5-10.1) Phosphorus Level 5.0 MG/DL (2.5-4.9) H Total Bilirubin 1.9 MG/DL (0.2-1.0) H Direct Bilirubin 1.1 MG/DL (0.0-0.3) H Aspartate Amino Transf (AST/SGOT) 70 U/L (15-37) H Alanine Aminotransferase (ALT/SGPT) 16 U/L (12-78) Alkaline Phosphatase 320 U/L (46-116) H C-Reactive Protein, Quantitative 24.3 mg/dL (0.00-0.90) H Pro-B-Type Natriuretic Peptide Pending Total Protein 7.7 G/DL (6.4-8.2) Albumin 3.1 G/DL (3.4-5.0) L Globulin 4.6 g/dL Albumin/Globulin Ratio 0.7 (1.0-2.7) L Microbiology Date/Time Source Procedure Growth Status 07/17/20 08:20 Nasopharynx SARS-CoV-2 RdRp Gene Assay - Final Complete 07/16/20 19:30 Blood Blood Culture - Preliminary NO GROWTH AFTER 48 HOURS Resulted 07/16/20 19:15 Blood Blood Culture - Preliminary NO GROWTH AFTER 48 HOURS Resulted 07/16/20 18:58 Nasopharynx Coronavirus COVID-19 PCR ([facility]) - Final Complete Objective HEAD AND NECK: Showed no JVD. LUNGS: Coarse rhonchi. CARDIOVASCULAR: Regular S1 and S2 with no gallop or murmur. ABDOMEN: Soft. EXTREMITIES: No pitting edema. Zev Gatica MD Jul 19, 2020 15:39
[2020-07-19 16:00] VITALS: BP 135/47
--- NOTE | 2020-07-19 16:03 | Nephrology Progress Note ---
Assessment/Plan Problem List: (1) Hypertensive kidney disease (2) ESRD (end stage renal disease) (3) Hyperkalemia (4) Suspected 2019 novel coronavirus infection Assessment 70-year-old female with end-stage renal disease Presented with volume overload and hyperkalemia Suspected COVID-19 virus infection Hypertensive emergency Diabetes mellitus CHF Plan July 19: Mental status appears slightly improved. Was dialyzed 2 days in a row. Blood pressure medication adjusted. Next dialysis tomorrow. Continue per consultants. July 18: Patient encephalopathic, was dialyzed yesterday and had 3 L removed. Will order dialysis again today. Continue per ID. Blood pressure medication adjusted. July 17: Stat hemodialysis ordered. Kayexalate for high potassium. Pulmonary support with oxygen or BiPAP as needed Blood pressure support with proper parameters Per orders Subjective ROS Limited/Unobtainable: No Constitutional: Reports: malaise Objective Objective Last 24 Hour Vital Signs Date Time Temp Pulse Resp B/P (MAP) Pulse Ox O2 Delivery O2 Flow Rate FiO2 07/19/20 13:33 79 171/62 07/19/20 13:32 171/62 07/19/20 12:06 171/62 07/19/20 12:00 85 07/19/20 12:00 99.1 79 18 171/62 (98) 100 07/19/20 09:00 Nasal Cannula 3.0 07/19/20 08:00 99.3 75 18 111/58 (75) 96 07/19/20 08:00 83 07/19/20 05:55 90 165/70 07/19/20 05:55 165/70 07/19/20 04:00 83 07/19/20 04:00 99.0 102 24 165/70 (101) 100 07/19/20 01:00 99.0 101 25 161/66 (97) 97 07/19/20 00:00 99 07/18/20 23:38 195/80 07/18/20 21:09 100 190/80 07/18/20 21:08 190/80 07/18/20 21:00 Nasal Cannula 3.0 07/18/20 20:00 98.7 95 25 165/70 (101) 97 07/18/20 20:00 83 Intake and Output 07/18/20 07/19/20 19:00 07:00 Intake Total 160 ml Balance 160 ml Intake Oral 160 ml # Voids 2 Current Medications Medications (Trade) Dose Ordered Sig/Toya Route PRN Reason Start Time Stop Time Status Last Admin Dose Admin Acetaminophen (Tylenol) 500 mg Q4HR PRN ORAL For Pain 07/17/20 00:00 08/16/20 00:00 Acetaminophen (Tylenol) 500 mg Q8H PRN ORAL FHMP 07/16/20 22:45 08/15/20 22:44 Albuterol Sulfate (Proventil MDI) 2 puff Q4H PRN INH Shortness of Breath 07/16/20 19:00 10/14/20 18:59 Azithromycin (Zithromax) 250 mg DAILY ORAL 07/19/20 09:00 07/26/20 08:59 07/19/20 09:01 Barium Sulfate (Varibar Honey) 250 ml NOW PRN MC RAD 07/17/20 15:00 07/20/20 14:49 Barium Sulfate (Varibar [place]) 240 ml NOW PRN MC RAD 07/17/20 15:00 07/20/20 14:49 Barium Sulfate (Varibar Pudding) 230 ml NOW PRN MC RAD 07/17/20 15:00 07/20/20 14:49 Barium Sulfate (Varibar Thin Liquid powder) 148 gm NOW PRN MC RAD 07/17/20 15:00 07/20/20 14:49 Calcium Acetate (Phoslo) 1,334 mg TID ORAL 07/17/20 09:00 10/15/20 08:59 07/19/20 13:32 Clonidine HCl (Catapres Tab) 0.1 mg Q4H PRN ORAL bp over 165 syst 07/16/20 22:45 10/14/20 22:44 07/19/20 12:06 Diltiazem HCl (Cardizem Tab) 90 mg EVERY 8 HOURS ORAL 07/19/20 14:00 08/16/20 13:59 07/19/20 13:33 Docusate Sodium (Colace) 100 mg THREE TIMES A DAY ORAL 07/17/20 09:00 08/16/20 08:59 07/19/20 13:32 Haloperidol Lactate (Haldol) 5 mg Q6H PRN IM Agitation 07/17/20 17:30 08/31/20 17:29 07/18/20 21:34 Hydralazine HCl (Apresoline) 50 mg EVERY 8 HOURS ORAL 07/17/20 06:00 10/15/20 05:59 07/19/20 13:32 Nitroglycerin (Ntg) 0.4 mg Q5M PRN SL Prn Chest Pain 07/16/20 19:00 08/15/20 18:59 07/16/20 19:26 Pantoprazole (Protonix) 40 mg BID ORAL 07/17/20 18:00 08/16/20 08:59 07/19/20 08:59 Quetiapine Fumarate (SEROqueL) 50 mg Q12HR ORAL 07/17/20 14:00 08/31/20 13:59 07/19/20 08:59 Laboratory Tests 07/19/20 06:50: White Blood Count 4.8, Red Blood Count 2.88L, Hemoglobin 9.9L, Hematocrit 29.3L, Mean Corpuscular Volume 102H, Mean Corpuscular Hemoglobin 34.2H, Mean Corpuscular Hemoglobin Concent 33.7, Red Cell Distribution Width 15.2H, Platelet Count 65L, Mean Platelet Volume 11.6H, Neutrophils (%) (Auto) , Lymphocytes (%) (Auto) , Monocytes (%) (Auto) , Eosinophils (%) (Auto) , Basophils (%) (Auto) , Differential Total Cells Counted 100, Neutrophils % (Manual) 87H, Lymphocytes % (Manual) 7L, Monocytes % (Manual) 6, Eosinophils % (Manual) 0, Basophils % (Manual) 0, Band Neutrophils 0, Platelet Estimate DecreasedL, Platelet Morphology Normal, Hypochromasia 1+, Anisocytosis 1+, Sodium Level 140, Potassi um Level 4.7, Chloride Level 99, Carbon Dioxide Level 26, Anion Gap 15, Blood Urea Nitrogen 52H, Creatinine 5.3H, Estimat Glomerular Filtration Rate 8.0, Glucose Level 235H, Calcium Level 9.0, Phosphorus Level 5.0H, Total Bilirubin 1.9H, Direct Bilirubin 1.1H, Aspartate Amino Transf (AST/SGOT) 70H, Alanine Aminotransferase (ALT/SGPT) 16, Alkaline Phosphatase 320H, C-Reactive Protein, Quantitative 24.3H, Pro-B-Type Natriuretic Peptide [Pending], Total Protein 7.7, Albumin 3.1L, Globulin 4.6, Albumin/Globulin Ratio 0.7L Height (Feet): 5 Height (Inches): 4.00 Weight (Pounds): 180 General Appearance: no apparent distress, lethargic, other - Arousable Cardiovascular: normal rate Respiratory/Chest: decreased breath sounds Abdomen: soft Francis Falk MD Jul 19, 2020 16:03
--- NOTE | 2020-07-19 19:20 | NUR ---
NURSE NOTES: Report received from Clarita RN. No SOB or distress noted. Patient oriented x1 to 2 [place] speaking. Call light in reach. Bed lowest position locked with side rails up. Will continue with plan of care. Fall, droplet and contact precautions.
--- NOTE | 2020-07-19 19:38 | Psychiatric Progress Note ---
Psychiatry Progress Note Psychiatry Progress Note Medications Current Medications Medications (Trade) Dose Ordered Sig/Toya Route PRN Reason Start Time Stop Time Status Last Admin Dose Admin Acetaminophen (Tylenol) 500 mg Q4HR PRN ORAL For Pain 07/17/20 00:00 08/16/20 00:00 Acetaminophen (Tylenol) 500 mg Q8H PRN ORAL FHMP 07/16/20 22:45 08/15/20 22:44 Albuterol Sulfate (Proventil MDI) 2 puff Q4H PRN INH Shortness of Breath 07/16/20 19:00 10/14/20 18:59 Azithromycin (Zithromax) 250 mg DAILY ORAL 07/19/20 09:00 07/26/20 08:59 07/19/20 09:01 Barium Sulfate (Varibar Honey) 250 ml NOW PRN MC RAD 07/17/20 15:00 07/20/20 14:49 Barium Sulfate (Varibar Dawn) 240 ml NOW PRN MC RAD 07/17/20 15:00 07/20/20 14:49 Barium Sulfate (Varibar Pudding) 230 ml NOW PRN MC RAD 07/17/20 15:00 07/20/20 14:49 Barium Sulfate (Varibar Thin Liquid powder) 148 gm NOW PRN MC RAD 07/17/20 15:00 07/20/20 14:49 Calcium Acetate (Phoslo) 1,334 mg TID ORAL 07/17/20 09:00 10/15/20 08:59 07/19/20 17:54 Clonidine HCl (Catapres Tab) 0.1 mg Q4H PRN ORAL bp over 165 syst 07/16/20 22:45 10/14/20 22:44 07/19/20 12:06 Diltiazem HCl (Cardizem Tab) 90 mg EVERY 8 HOURS ORAL 07/19/20 14:00 08/16/20 13:59 07/19/20 13:33 Docusate Sodium (Colace) 100 mg THREE TIMES A DAY ORAL 07/17/20 09:00 08/16/20 08:59 07/19/20 17:54 Haloperidol Lactate (Haldol) 5 mg Q6H PRN IM Agitation 07/17/20 17:30 08/31/20 17:29 07/18/20 21:34 Hydralazine HCl (Apresoline) 50 mg EVERY 6 HOURS ORAL 07/19/20 18:00 10/15/20 05:59 07/19/20 17:54 Nitroglycerin (Ntg) 0.4 mg Q5M PRN SL Prn Chest Pain 07/16/20 19:00 08/15/20 18:59 07/16/20 19:26 Pantoprazole (Protonix) 40 mg BID ORAL 07/17/20 18:00 08/16/20 08:59 07/19/20 17:54 Quetiapine Fumarate (SEROqueL) 50 mg Q12HR ORAL 07/17/20 14:00 08/31/20 13:59 07/19/20 08:59 Allergies: Coded Allergies: No Known Allergies (Unverified , 05/12/17) Objective Data Height (Feet): 5 Height (Inches): 4.00 Weight (Pounds): 180 General Appearance: no apparent distress, lethargic, other - Arousable Additional Comments: MENTAL STATUS EXAMINATION: The patient is having waxing and waning consciousness. Mood is irritable and anxious. Affect is blunted, congruent with mood. Thought process is concrete. Thought content, no suicidal or homicidal ideation. Cognition is impaired. Insight and judgment is impaired. Assessment/Plan Status: deteriorating Assessment/Plan: ASSESSMENT: Touchet I Acute toxic encephalopathy. Touchet II Deferred. Touchet III COVID-19. Touchet IV Low. Touchet V 20. PLAN: 1. We will start the patient on low dose of antipsychotics. 2. restraints. 3. Discussed with the nurse. Alecia Collins MD Jul 19, 2020 19:38
--- NOTE | 2020-07-19 19:40 | NUR ---
NURSE HAND-OFF REPORT: Important Events on Shift:[ Patient is not following commands, Restraint renewed] Patient Status: [confused] Diet: renal puree moist Pending Orders: HD Pending Results/Labs:N/A Pending MD notification:N/A Latest Vital Signs: Temperature 98.1 , Pulse 81 , B/P 135 /47 , Respiratory Rate 18 , O2 SAT 99 , Nasal Cannula, O2 Flow Rate 3.0 . Vital Sign Comment: Stable EKG Rhythm: Sinus Rhythm Rhythm change?: N MD Notified?: - MD Response: Latest Elizabeth Fall Score: 35 Fall Risk: Medium Risk Safety Measures: Call light Within Reach, Bed Alarm Zone 1, Side Rails Side Rails x3, Bed position Low and Locked. Fall Precautions: Yellow Socks Yellow Gown Door Sign Patient Fall Education Report given to Fabiana/SIDNEY.
[2020-07-19 20:00] VITALS: BP 177/61
--- NOTE | 2020-07-19 20:54 | General Progress Note ---
Subjective ROS Limited/Unobtainable: Yes Allergies: Coded Allergies: No Known Allergies (Unverified , 05/12/17) Objective Last 24 Hour Vital Signs Date Time Temp Pulse Resp B/P (MAP) Pulse Ox O2 Delivery O2 Flow Rate FiO2 07/19/20 17:54 135/47 07/19/20 16:00 81 07/19/20 16:00 98.1 79 18 135/47 (76) 99 07/19/20 13:33 79 171/62 07/19/20 13:32 171/62 07/19/20 12:06 171/62 07/19/20 12:00 85 07/19/20 12:00 99.1 79 18 171/62 (98) 100 07/19/20 09:00 Nasal Cannula 3.0 07/19/20 08:00 99.3 75 18 111/58 (75) 96 07/19/20 08:00 83 07/19/20 05:55 90 165/70 07/19/20 05:55 165/70 07/19/20 04:00 83 07/19/20 04:00 99.0 102 24 165/70 (101) 100 07/19/20 01:00 99.0 101 25 161/66 (97) 97 07/19/20 00:00 99 07/18/20 23:38 195/80 07/18/20 21:09 100 190/80 07/18/20 21:08 190/80 07/18/20 21:00 Nasal Cannula 3.0 Intake and Output 07/18/20 07/19/20 19:00 07:00 Intake Total 160 ml Balance 160 ml Intake Oral 160 ml # Voids 2 Laboratory Tests 07/19/20 06:50: White Blood Count 4.8, Red Blood Count 2.88L, Hemoglobin 9.9L, Hematocrit 29.3L, Mean Corpuscular Volume 102H, Mean Corpuscular Hemoglobin 34.2H, Mean Corpuscular Hemoglobin Concent 33.7, Red Cell Distribution Width 15.2H, Platelet Count 65L, Mean Platelet Volume 11.6H, Neutrophils (%) (Auto) , Lymphocytes (%) (Auto) , Monocytes (%) (Auto) , Eosinophils (%) (Auto) , Basophils (%) (Auto) , Differential Total Cells Counted 100, Neutrophils % (Manual) 87H, Lymphocytes % (Manual) 7L, Monocytes % (Manual) 6, Eosinophils % (Manual) 0, Basophils % (Manual) 0, Band Neutrophils 0, Platelet Estimate DecreasedL, Platelet Morphology Normal, Hypochromasia 1+, Anisocytosis 1+, Sodium Level 140, Potassium Level 4.7, Chloride Level 99, Carbon Dioxide Level 26, Anion Gap 15, Blood Urea Nitrogen 52H, Creatinine 5.3H, Estimat Glomerular Filtration Rate 8.0, Glucose Level 235H, Calcium Level 9.0, Phosphorus Level 5.0H, Total Bilirubin 1.9H, Direct Bilirubin 1.1H, Aspartate Amino Transf (AST/SGOT) 70H, Alanine Aminotransferase (ALT/SGPT) 16, Alkaline Phosphatase 320H, C-Reactive Protein, Quantitative 24.3H, Pro-B-Type Natriuretic Peptide [Pending], Total Protein 7.7, Albumin 3.1L, Globulin 4.6, Albumin/Globulin Ratio 0.7L // 19:30: Arterial Blood pH 7.280L, Arterial Blood Partial Pressure CO2 56.8*H, Arterial Blood Partial Pressure O2 70.1L, Arterial Blood HCO3 26.1H, Arterial Blood Oxygen Saturation 90.9L, Arterial Blood Base Excess -1.1, Faheem Test Positive Height (Feet): 5 Height (Inches): 4.00 Weight (Pounds): 180 Assessment/Plan Problem List: (1) Pneumonia ICD Codes: J18.9 - Pneumonia, unspecified organism SNOMED: 644632853 (2) Hypertension ICD Codes: I10 - Essential (primary) hypertension SNOMED: 36181253 (3) Renal failure ICD Codes: N19 - Unspecified kidney failure SNOMED: 18373539 (4) Anemia in chronic kidney disease (CKD) ICD Codes: N18.9 - Chronic kidney disease, unspecified; D63.1 - Anemia in chronic kidney disease SNOMED: 575265464 (5) weakness (6) ESRD (end stage renal disease) ICD Codes: N18.6 - End stage renal disease SNOMED: 96236249 (7) Diabetic nephropathy with proteinuria ICD Codes: E11.21 - Type 2 diabetes mellitus with diabetic nephropathy SNOMED: 90172512, 970695722 Status: deteriorating Assessment/Plan: hypertensive urgency is improving no fever anemia check h/h afebrile respiratory worsening niddm covid positive pna copd htn getting worse Hadadz,Ali MD Jul 19, 2020 20:54
[2020-07-20] VITALS (10 sets, daily range): BP systolic 132–166; BP diastolic 48–62
--- NOTE | 2020-07-20 00:09 | NUR ---
NURSE NOTES: Dr. Daniel made aware that patient had 1 bowel movement with with blood in stool, dark red in color. Dr. Daniel stated that he "told Dr. Leonard already, he will order as needed." CBC ordered for AM. Addendum: 07/20/20 at 0333 by Fabiana Ravi RN Also made aware of H&H level
[2020-07-20] MEDS: HydrALAZINE 50mg tab ORAL SCH ×4 (05:41→18:00)
[2020-07-20] MEDS: dilTIAZem HCl 90mg tab ORAL SCH ×3 (05:41→22:00)
--- NOTE | 2020-07-20 07:39 | Hematology/Onc Progress Note ---
Assessment/Plan Assessment/Plan Assessment/Plan 1. Pancytopenia with hx anemia due to underlying chronic disease. Have reviewed prior workup, ferritin is >1000, though percent saturation Tsat <30, but not recommended for further iron, also with covid19++++ --> Continue to closely monitor. --> Transfuse if hgb <7 --> ferritin is >1000 --> give epogen, has been started 3x a week --> as per renal --> monitor for gi bleed, gi consulted --> hgb trend 7.8-->9.3->8.9->>11-->9.5 --> plt 42-->50-->65 --> hep and hiv neg 2. Leukopenia likely reactive process v infection v from meds --> hepatitis and hiv prior negative --> neutropenic precautions if ANC <1500 --> trending stable --> imaging reviewed and no hsm / cirrhosis noted --> wbc 2.7-->3.6->>>2 --> ANC goal >1500 3. End-stage renal disease, on hemodialysis three times a week. --> renal consulted --> continue hd 4. History of coronary artery disease. --> cards reviewed --> diuresis prn 5. History of anemia due to low B12, low iron --> b12 is currently within normal limits --> reobtain q6mo 6. Dizziness and unsteady gait 7. DVt ppsx with SCDs Greatly appreciate consultation and Selvin RN Subjective HEENT: Denies: no symptoms, eye pain, blurred vision, tearing, double vision, ear pain, ear discharge, nose pain, nose congestion, throat pain, throat swelling, mouth pain, mouth swelling, other Cardiovascular: Denies: no symptoms, chest pain, edema, irregular heart rate, lightheadedness, palpitations, syncope, other Respiratory: Denies: no symptoms, cough, shortness of breath, SOB with ex certion, SOB at rest, sputum, wheezing, other Gastrointestinal/Abdominal: Denies: no symptoms, abdomen distended, abdominal pain, black stools, tarry stools, blood in stool, constipated, diarrhea, difficulty swallowing, nausea, poor appetite, poor fluid intake, rectal bleeding, vomiting, other Genitourinary: Denies: no symptoms, burning, discharge, frequency, flank pain, hematuria, incontinence, pain, urgency, other Neurologic/Psychiatric: Denies: no symptoms, anxiety, depressed, emotional problems, headache, numbness, paresthesia, pre-existing deficit, seizure, tingl ing, tremors, weakness, other Endocrine: Denies: no symptoms, excessive sweating, flushing, intolerance to cold, intolerance to heat, increased hunger, increased thirst, increased urine, unexplained weight gain, unexplained weight loss, other Allergies: Coded Allergies: No Known Allergies (Unverified , 05/12/17) Subjective 07/19 meds noted, s/p hd, bp has improved, no bleeding, labs reviewed 07/20 labs are noted, no bleeding, meds reviewed, no major changes, hgb 9.5 Objective Objective Current Medications Medications (Trade) Dose Ordered Sig/Toya Route PRN Reason Start Time Stop Time Status Last Admin Dose Admin Acetaminophen (Tylenol) 500 mg Q4HR PRN ORAL For Pain 07/17/20 00:00 08/16/20 00:00 Acetaminophen (Tylenol) 500 mg Q8H PRN ORAL FHMP 07/16/20 22:45 08/15/20 22:44 Albuterol Sulfate (Proventil MDI) 2 puff Q4H PRN INH Shortness of Breath 07/16/20 19:00 10/14/20 18:59 Azithromycin (Zithromax) 250 mg DAILY ORAL 07/19/20 09:00 07/26/20 08:59 07/19/20 09:01 Barium Sulfate (Varibar Honey) 250 ml NOW PRN MC RAD 07/17/20 15:00 07/20/20 14:49 Barium Sulfate (Varibar [place]) 240 ml NOW PRN MC RAD 07/17/20 15:00 07/20/20 14:49 Barium Sulfate (Varibar Pudding) 230 ml NOW PRN MC RAD 07/17/20 15:00 07/20/20 14:49 Barium Sulfate (Varibar Thin Liquid powder) 148 gm NOW PRN MC RAD 07/17/20 15:00 07/20/20 14:49 Calcium Acetate (Phoslo) 1,334 mg TID ORAL 07/17/20 09:00 10/15/20 08:59 07/19/20 17:54 Clonidine HCl (Catapres Tab) 0.1 mg Q4H PRN ORAL bp over 165 syst 07/16/20 22:45 10/14/20 22:44 07/19/20 12:06 Diltiazem HCl (Cardizem Tab) 90 mg EVERY 8 HOURS ORAL 07/19/20 14:00 08/16/20 13:59 07/20/20 05:41 Docusate Sodium (Colace) 100 mg THREE TIMES A DAY ORAL 07/17/20 09:00 08/16/20 08:59 07/19/20 17:54 Haloperidol Lactate (Haldol) 5 mg Q6H PRN IM Agitation 07/17/20 17:30 08/31/20 17:29 07/18/20 21:34 Hydralazine HCl (Apresoline) 50 mg EVERY 6 HOURS ORAL 07/19/20 18:00 10/15/20 05:59 07/20/20 05:41 Nitroglycerin (Ntg) 0.4 mg Q5M PRN SL Prn Chest Pain 07/16/20 19:00 08/15/20 18:59 07/16/20 19:26 Pantoprazole (Protonix) 40 mg BID ORAL 07/17/20 18:00 08/16/20 08:59 07/19/20 17:54 Quetiapine Fumarate (SEROqueL) 50 mg Q12HR ORAL 07/17/20 14:00 08/31/20 13:59 07/19/20 21:00 Last 24 Hour Vital Signs Date Time Temp Pulse Resp B/P (MAP) Pulse Ox O2 Delivery O2 Flow Rate FiO2 07/20/20 05:41 121/61 07/20/20 05:41 75 121/61 07/20/20 04:00 79 07/20/20 04:00 98.8 70 19 141/50 (80) 99 07/20/20 00:00 98.8 83 18 166/62 (96) 99 07/20/20 00:00 82 07/20/20 00:00 160/70 07/19/20 22:00 86 177/61 07/19/20 21:00 Non-Rebreather 07/19/20 20:00 85 07/19/20 20:00 98.8 86 18 177/61 (99) 99 07/19/20 17:54 135/47 07/19/20 16:00 81 07/19/20 16:00 98.1 79 18 135/47 (76) 99 07/19/20 13:33 79 171/62 07/19/20 13:32 171/62 07/19/20 12:06 171/62 07/19/20 12:00 85 07/19/20 12:00 99.1 79 18 171/62 (98) 100 07/19/20 09:00 Nasal Cannula 3.0 07/19/20 08:00 99.3 75 18 111/58 (75) 96 07/19/20 08:00 83 07/19/20 05:55 90 165/70 07/19/20 05:55 165/70 07/19/20 04:00 83 07/19/20 04:00 99.0 102 24 165/70 (101) 100 07/19/20 01:00 99.0 101 25 161/66 (97) 97 07/19/20 00:00 99 07/18/20 23:38 195/80 07/18/20 21:09 100 190/80 07/18/20 21:08 190/80 07/18/20 21:00 Nasal Cannula 3.0 07/18/20 20:00 98.7 95 25 165/70 (101) 97 07/18/20 20:00 83 07/18/20 16:00 88 07/18/20 16:00 98.1 88 26 173/55 (94) 97 07/18/20 14:00 102 173/55 07/18/20 14:00 173/55 07/18/20 12:00 98.1 88 26 173/55 (94) 97 07/18/20 12:00 102 07/18/20 09:00 98.1 88 24 173/55 (94) 97 07/18/20 09:00 Nasal Cannula 3.0 07/18/20 08:00 99.1 102 20 165/85 (111) 99 07/18/20 08:00 108 Intake and Output 07/19/20 07/20/20 19:00 07:00 Intake Total 270 ml Balance 270 ml Intake Oral 270 ml Labs Test 07/17/20 08:00 07/18/20 08:25 07/19/20 06:50 07/19/20 19:30 Hepatitis B Surface Antigen Negative (NEGATIVE) White Blood Count 4.5 K/UL (4.8-10.8) 4.8 K/UL (4.8-10.8) Red Blood Count 3.19 M/UL (4.20-5.40) 2.88 M/UL (4.20-5.40) Hemoglobin 10.9 G/DL (12.0-16.0) 9.9 G/DL (12.0-16.0) Hematocrit 32.7 % (37.0-47.0) 29.3 % (37.0-47.0) Mean Corpuscular Volume 102 FL (80-99) 102 FL (80-99) Mean Corpuscular Hemoglobin 34.1 PG (27.0-31.0) 34.2 PG (27.0-31.0) Mean Corpuscular Hemoglobin Concent 33.3 G/DL (32.0-36.0) 33.7 G/DL (32.0-36.0) Red Cell Distribution Width 15.4 % (11.6-14.8) 15.2 % (11.6-14.8) Platelet Count 46 K/UL (150-450) 65 K/UL (150-450) Mean Platelet Volume 8.6 FL (6.5-10.1) 11.6 FL (6.5-10.1) Neutrophils (%) (Auto) % (45.0-75.0) % (45.0-75.0) Lymphocytes (%) (Auto) % (20.0-45.0) % (20.0-45.0) Monocytes (%) (Auto) % (1.0-10.0) % (1.0-10.0) Eosinophils (%) (Auto) % (0.0-3.0) % (0.0-3.0) Basophils (%) (Auto) % (0.0-2.0) % (0.0-2.0) Differential Total Cells Counted 100 100 Neutrophils % (Manual) 90 % (45-75) 87 % (45-75) Lymphocytes % (Manual) 7 % (20-45) 7 % (20-45) Monocytes % (Manual) 3 % (1-10) 6 % (1-10) Eosinophils % (Manual) 0 % (0-3) 0 % (0-3) Basophils % (Manual) 0 % (0-2) 0 % (0-2) Band Neutrophils 0 % (0-8) 0 % (0-8) Platelet Estimate Decreased Decreased Platelet Morphology Normal Normal Anisocytosis 1+ 1+ Macrocytosis 1+ Sodium Level 140 MMOL/L (136-145) 140 MMOL/L (136-145) Potassium Level 4.9 MMOL/L (3.5-5.1) 4.7 MMOL/L (3.5-5.1) Chloride Level 100 MMOL/L (98-107) 99 MMOL/L (98-107) Carbon Dioxide Level 27 MMOL/L (21-32) 26 MMOL/L (21-32) Anion Gap 13 mmol/L (5-15) 15 mmol/L (5-15) Blood Urea Nitrogen 60 mg/dL (7-18) 52 mg/dL (7-18) Creatinine 6.2 MG/DL (0.55-1.30) 5.3 MG/DL (0.55-1.30) Estimat Glomerular Filtration Rate 6.7 mL/min (>60) 8.0 mL/min (>60) Glucose Level 226 MG/DL (74-106) 235 MG/DL (74-106) Calcium Level 8.2 MG/DL (8.5-10.1) 9.0 MG/DL (8.5-10.1) Phosphorus Level 5.8 MG/DL (2.5-4.9) 5.0 MG/DL (2.5-4.9) Magnesium Level 2.4 MG/DL (1.8-2.4) Total Bilirubin 1.7 MG/DL (0.2-1.0) 1.9 MG/DL (0.2-1.0) Direct Bilirubin 1.0 MG/DL (0.0-0.3) 1.1 MG/DL (0.0-0.3) Aspartate Amino Transf (AST/SGOT) 55 U/L (15-37) 70 U/L (15-37) Alanine Aminotransferase (ALT/SGPT) 14 U/L (12-78) 16 U/L (12-78) Alkaline Phosphatase 362 U/L (46-116) 320 U/L (46-116) Total Protein 8.0 G/DL (6.4-8.2) 7.7 G/DL (6.4-8.2) Albumin 3.2 G/DL (3.4-5.0) 3.1 G/DL (3.4-5.0) Globulin 4.8 g/dL 4.6 g/dL Albumin/Globulin Ratio 0.7 (1.0-2.7) 0.7 (1.0-2.7) Hypochromasia 1+ C-Reactive Protein, Quantitative 24.3 mg/dL (0.00-0.90) Arterial Blood pH 7.280 (7.350-7.450) Arterial Blood Partial Pressure CO2 56.8 mmHg (35.0-45.0) Arterial Blood Partial Pressure O2 70.1 mmHg (75.0-100.0) Arterial Blood HCO3 26.1 mmol/L (22.0-26.0) Arterial Blood Oxygen Saturation 90.9 % (95-100) Arterial Blood Base Excess -1.1 (-2-2) Faheem Test Positive Height (Feet): 5 Height (Inches): 4.00 Weight (Pounds): 180 Objective Physical Exam General Appearance: alert, obese, Chronically Ill Neck: full range of motion Respiratory: wheezing Cardiovascular: edema Gastrointestinal: normal inspection, soft Neurologic: alert, 911 emergency services dispatcher III-XII nml as tested Psychiatric: normal inspection, judgement/insight normal Skin: other Carl Daniels MD Jul 20, 2020 07:39
--- NOTE | 2020-07-20 07:59 | NUR ---
NURSE HAND-OFF REPORT: Important Events on Shift:Patient on non rebreather at 15LPM fio2 100% Patient Status: Blood noted in stool dark red and black on second bowel movement. Diet: Renal Puree Moist feeder crushed pills Pending Orders: [] Pending Results/Labs:[] Pending MD notification:[] Latest Vital Signs: Temperature 98.8 , Pulse 75 , B/P 121 /61 , Respiratory Rate 19 , O2 SAT 99 , Nasal Cannula, O2 Flow Rate 3.0 . Vital Sign Comment: [] EKG Rhythm: Sinus Rhythm Rhythm change?: N MD Notified?: - MD Response: Latest Elizabeth Fall Score: 35 Fall Risk: Medium Risk Safety Measures: Call light Within Reach, Bed Alarm Zone 1, Side Rails Side Rails x3, Bed position Low and Locked. Fall Precautions: Yellow Socks Yellow Gown Door Sign Patient Fall Education Report given to [Jasmyn LITTLE]. Addendum: 07/20/20 at 0808 by Fabiana Ravi RN aware of blood in stool Addendum: 07/20/20 at 0810 by Fabiana Ravi RN Endorsed that patient will have dialysis today 07/20/20 as endorsed by previous nurse. Stated that she notified [facility] Addendum: 07/20/20 at 0812 by Fabiana Ravi RN Endorsed that ABG were not done yesterday or day before due to patient fighting and refusing. Endorsed to follow up with RT to try to obtain ABG today also called RT
--- NOTE | 2020-07-20 08:01 | NUR ---
NURSE NOTES: Received report from Fabiana/SIDNEY. Pt sleeping, in semi-fowlers position. On 15L non-rebreather mask, no distress or SOB noted. Pt had two bloody stools during the night, Dr Leonard is aware. Left upper arm AV shunt for dialysis. IV on right FA, 22G SL, patent and clean. Pt is on retrains, will monitor Q2hrs. Bed in lowest position and locked. Call light within reach, encouraged to use it when needed. Side rails up X3. Will continue plan of care.
--- NOTE | 2020-07-20 08:33 | NUR ---
CASE MANAGEMENT:REVIEW 07/20/20 SI: OTIS PNA. COPD. ESRD 98.8 70 19 141/50 99% ON 15L NRB IS: IVF@50/HR HYDRALAZINE PO Q6HRS CARDIZEM PO Q8HRS AZITHROMYCIN PO QD PROTONIX PO BID SEROQUEL PO Q12 PHOSLO PO TID : TELEMETRY DCP: FROM HOME WITH OUTPT DIALYSIS
--- NOTE | 2020-07-20 09:05 | NUR ---
RESPIRATORY NOTE: ABG DRAWN RESULTS GIVEN TO SIDNEY JIANG AT THIS TIME. PT ON NRB MASK. WAITING ON NEW ORDERS.
[2020-07-20 09:25] LABS: HEMATOCRIT 27.9 % (37.0-47.0); HEMOGLOBIN 9.2 G/DL (12.0-16.0); MEAN CORPUSCULAR VOLUME 101 FL (80-99); PLATELET COUNT 91 K/UL (150-450); RED BLOOD COUNT 2.77 M/UL (4.20-5.40); RED CELL DISTRIBUTION WIDTH 16.2 % (11.6-14.8); WHITE BLOOD COUNT 3.7 K/UL (4.8-10.8)
[2020-07-20 09:28] LABS: CREATININE 7.3 MG/DL (0.55-1.30); POTASSIUM 5.8 MMOL/L (3.5-5.1)
[2020-07-20] MEDS: Docusate 100mg cap ORAL SCH ×3 (09:29→18:00)
[2020-07-20] MEDS: Azithromycin 250mg tab ORAL SCH (09:30)
[2020-07-20 09:45] LABS: ALBUMIN 2.9 G/DL (3.4-5.0); ALBUMIN/GLOBULIN RATIO 0.7 (1.0-2.7); BILIRUBIN,DIRECT 0.9 MG/DL (0.0-0.3); BILIRUBIN,TOTAL 1.5 MG/DL (0.2-1.0)
--- NOTE | 2020-07-20 10:18 | NUR ---
NURSE NOTES: Contacted Dr Daniel to let him know, Pt ABG's levels were abnormal and potassium level was 5.8. Waiting for a call back.
--- NOTE | 2020-07-20 11:57 | NUR ---
NURSE NOTES: Pt in unstable condition, lethargic, waiting for a bed to transfer to ICU.
--- NOTE | 2020-07-20 12:00 | Infectious Diseases Prog Note ---
Assessment/Plan Assessment/Plan IMPRESSION: COVID-19 disease, Altered mental status and encephalopathy, End-stage renal disease on hemodialysis, COPD, asthma, Hypertension, Pancytopenia, Diabetes mellitus with hyperglycemia, Systolic heart failure, aortic stenosis. RECOMMENDATION: Continue dexamethasone. Repeat CXR Start on Rocephin We will follow up the cultures. Subjective ROS Limited/Unobtainable: Yes Constitutional: Denies: fever Neurologic: Reports: other - off of restraint Allergies: Coded Allergies: No Known Allergies (Unverified , 05/12/17) Objective Last 24 Hour Vital Signs Date Time Temp Pulse Resp B/P (MAP) Pulse Ox O2 Delivery O2 Flow Rate FiO2 07/20/20 09:00 Non-Rebreather 07/20/20 08:00 98.9 84 20 159/60 (93) 98 07/20/20 08:00 86 07/20/20 05:41 121/61 07/20/20 05:41 75 121/61 07/20/20 04:00 79 07/20/20 04:00 98.8 70 19 141/50 (80) 99 07/20/20 00:00 98.8 83 18 166/62 (96) 99 07/20/20 00:00 82 07/20/20 00:00 160/70 07/19/20 22:00 86 177/61 07/19/20 21:00 Non-Rebreather 07/19/20 20:00 85 07/19/20 20:00 98.8 86 18 177/61 (99) 99 07/19/20 17:54 135/47 07/19/20 16:00 81 07/19/20 16:00 98.1 79 18 135/47 (76) 99 07/19/20 13:33 79 171/62 07/19/20 13:32 171/62 07/19/20 12:06 171/62 07/19/20 12:00 85 07/19/20 12:00 99.1 79 18 171/62 (98) 100 Height (Feet): 5 Height (Inches): 4.00 Weight (Pounds): 180 HEENT: mucous membranes moist Respiratory/Chest: lungs clear, other - oxygen by rebreathing mask Cardiovascular: normal rate Abdomen: soft, non tender, other - lethargic Laboratory Tests Test 07/19/20 19:30 07/20/20 08:35 07/20/20 09:50 Arterial Blood pH 7.280 (7.350-7.450) 7.228 (7.350-7.450) Arterial Blood Partial Pressure CO2 56.8 mmHg (35.0-45.0) *H 68.7 mmHg (35.0-45.0) *H Arterial Blood Partial Pressure O2 70.1 mmHg (75.0-100.0) L 107.5 mmHg (75.0-100.0) H Arterial Blood HCO3 26.1 mmol/L (22.0-26.0) H 28.0 mmol/L (22.0-26.0) H Arterial Blood Oxygen Saturation 90.9 % (95-100) L 96.2 % (95-100) Arterial Blood Base Excess -1.1 (-2-2) -0.5 (-2-2) Faheem Test Positive Positive White Blood Count 3.7 K/UL (4.8-10.8) L Red Blood Count 2.77 M/UL (4.20-5.40) L Hemoglobin 9.2 G/DL (12.0-16.0) L Hematocrit 27.9 % (37.0-47.0) L Mean Corpuscular Volume 101 FL (80-99) H Mean Corpuscular Hemoglobin 33.1 PG (27.0-31.0) H Mean Corpuscular Hemoglobin Concent 32.9 G/DL (32.0-36.0) Red Cell Distribution Width 16.2 % (11.6-14.8) H Platelet Count 91 K/UL (150-450) L Mean Platelet Volume 8.6 FL (6.5-10.1) Neutrophils (%) (Auto) % (45.0-75.0) Lymphocytes (%) (Auto) % (20.0-45.0) Monocytes (%) (Auto) % (1.0-10.0) Eosinophils (%) (Auto) % (0.0-3.0) Basophils (%) (Auto) % (0.0-2.0) Differential Total Cells Counted 100 Neutrophils % (Manual) 91 % (45-75) H Lymphocytes % (Manual) 6 % (20-45) L Monocytes % (Manual) 3 % (1-10) Eosinophils % (Manual) 0 % (0-3) Basophils % (Manual) 0 % (0-2) Band Neutrophils 0 % (0-8) Platelet Estimate Decreased L Platelet Morphology Normal Anisocytosis 1+ Macrocytosis 1+ Sodium Level 143 MMOL/L (136-145) Potassium Level 5.8 MMOL/L (3.5-5.1) H Chloride Level 103 MMOL/L (98-107) Carbon Dioxide Level 31 MMOL/L (21-32) Anion Gap 9 mmol/L (5-15) Blood Urea Nitrogen 102 mg/dL (7-18) H Creatinine 7.3 MG/DL (0.55-1.30) H Estimat Glomerular Filtration Rate 5.5 mL/min (>60) Glucose Level 419 MG/DL (74-106) #H Calcium Level 9.0 MG/DL (8.5-10.1) Total Bilirubin 1.5 MG/DL (0.2-1.0) H Direct Bilirubin 0.9 MG/DL (0.0-0.3) H Aspartate Amino Transf (AST/SGOT) 45 U/L (15-37) H Alanine Aminotransferase (ALT/SGPT) 14 U/L (12-78) Alkaline Phosphatase 271 U/L (46-116) H Total Protein 7.3 G/DL (6.4-8.2) Albumin 2.9 G/DL (3.4-5.0) L Globulin 4.4 g/dL Albumin/Globulin Ratio 0.7 (1.0-2.7) L Current Medications Medications (Trade) Dose Ordered Sig/Toya Route PRN Reason Start Time Stop Time Status Last Admin Dose Admin Acetaminophen (Tylenol) 500 mg Q4HR PRN ORAL For Pain 07/17/20 00:00 08/16/20 00:00 Acetaminophen (Tylenol) 500 mg Q8H PRN ORAL FHMP 07/16/20 22:45 08/15/20 22:44 Albuterol Sulfate (Proventil MDI) 2 puff Q4H PRN INH Shortness of Breath 07/16/20 19:00 10/14/20 18:59 Azithromycin (Zithromax) 250 mg DAILY ORAL 07/19/20 09:00 07/26/20 08:59 07/20/20 09:30 Barium Sulfate (Varibar Honey) 250 ml NOW PRN MC RAD 07/17/20 15:00 07/20/20 14:49 Barium Sulfate (Varibar [place]) 240 ml NOW PRN RAD 07/17/20 15:00 07/20/20 14:49 Barium Sulfate (Varibar Pudding) 230 ml NOW PRN RAD 07/17/20 15:00 07/20/20 14:49 Barium Sulfate (Varibar Thin Liquid powder) 148 gm NOW PRN RAD 07/17/20 15:00 07/20/20 14:49 Calcium Acetate (Phoslo) 1,334 mg TID ORAL 07/17/20 09:00 10/15/20 08:59 07/20/20 09:29 Clonidine HCl (Catapres Tab) 0.1 mg Q4H PRN ORAL bp over 165 syst 07/16/20 22:45 10/14/20 22:44 07/19/20 12:06 Dextrose 1,000 ml @ 50 mls/hr Q20H IV 07/20/20 08:00 08/19/20 07:59 07/20/20 09:31 Diltiazem HCl (Cardizem Tab) 90 mg EVERY 8 HOURS ORAL 07/19/20 14:00 08/16/20 13:59 07/20/20 05:41 Docusate Sodium (Colace) 100 mg THREE TIMES A DAY ORAL 07/17/20 09:00 08/16/20 08:59 07/20/20 09:29 Haloperidol Lactate (Haldol) 5 mg Q6H PRN IM Agitation 07/17/20 17:30 08/31/20 17:29 07/18/20 21:34 Hydralazine HCl (Apresoline) 50 mg EVERY 6 HOURS ORAL 07/19/20 18:00 10/15/20 05:59 07/20/20 05:41 Nitroglycerin (Ntg) 0.4 mg Q5M PRN SL Prn Chest Pain 07/16/20 19:00 08/15/20 18:59 07/16/20 19:26 Pantoprazole (Protonix) 40 mg BID ORAL 07/17/20 18:00 08/16/20 08:59 07/20/20 09:29 Quetiapine Fumarate (SEROqueL) 50 mg Q12HR ORAL 07/17/20 14:00 08/31/20 13:59 07/20/20 09:30 Kalin Briseno MD Jul 20, 2020 12:00
--- NOTE | 2020-07-20 12:17 | Nephrology Progress Note ---
Assessment/Plan Problem List: (1) Hypertensive kidney disease (2) ESRD (end stage renal disease) (3) Hyperkalemia (4) Suspected 2019 novel coronavirus infection Assessment 70-year-old female with end-stage renal disease Presented with volume overload and hyperkalemia Suspected COVID-19 virus infection Hypertensive emergency Diabetes mellitus CHF Plan July 20: Patient seen and examined. Discussed with RN. Remains encephalopathic. Poor ABG results. Patient at high risk at this stage. We will transfer patients to ICU for possible airway support. Patient due for dialysis today. Hyperkalemia probably secondary to acidosis. Will arrange for NG tube insertion and give medication through NG tube. July 19: Mental status appears slightly improved. Was dialyzed 2 days in a row. Blood pressure medication adjusted. Next dialysis tomorrow. Continue per consultants. July 18: Patient encephalopathic, was dialyzed yesterday and had 3 L removed. Will order dialysis again today. Continue per ID. Blood pressure medication adjusted. July 17: Stat hemodialysis ordered. Kayexalate for high potassium. Pulmonary support with oxygen or BiPAP as needed Blood pressure support with proper parameters Per orders Subjective ROS Limited/Unobtainable: Yes Objective Objective Last 24 Hour Vital Signs Date Time Temp Pulse Resp B/P (MAP) Pulse Ox O2 Delivery O2 Flow Rate FiO2 07/20/20 09:00 Non-Rebreather 07/20/20 08:00 98.9 84 20 159/60 (93) 98 07/20/20 08:00 86 07/20/20 05:41 121/61 07/20/20 05:41 75 121/61 07/20/20 04:00 79 07/20/20 04:00 98.8 70 19 141/50 (80) 99 07/20/20 00:00 98.8 83 18 166/62 (96) 99 07/20/20 00:00 82 07/20/20 00:00 160/70 07/19/20 22:00 86 177/61 07/19/20 21:00 Non-Rebreather 07/19/20 20:00 85 07/19/20 20:00 98.8 86 18 177/61 (99) 99 07/19/20 17:54 135/47 07/19/20 16:00 81 07/19/20 16:00 98.1 79 18 135/47 (76) 99 07/19/20 13:33 79 171/62 07/19/20 13:32 171/62 Intake and Output 07/19/20 07/20/20 19:00 07:00 Intake Total 270 ml Balance 270 ml Intake Oral 270 ml Current Medications Medications (Trade) Dose Ordered Sig/Toya Route PRN Reason Start Time Stop Time Status Last Admin Dose Admin Acetaminophen (Tylenol) 500 mg Q4HR PRN ORAL For Pain 07/17/20 00:00 08/16/20 00:00 Acetaminophen (Tylenol) 500 mg Q8H PRN ORAL FHMP 07/16/20 22:45 08/15/20 22:44 Albuterol Sulfate (Proventil MDI) 2 puff Q4H PRN INH Shortness of Breath 07/16/20 19:00 10/14/20 18:59 Azithromycin (Zithromax) 250 mg DAILY ORAL 07/19/20 09:00 07/26/20 08:59 07/20/20 09:30 Barium Sulfate (Varibar Honey) 250 ml NOW PRN MC RAD 07/17/20 15:00 07/20/20 14:49 Barium Sulfate (Varibar [place]) 240 ml NOW PRN MC RAD 07/17/20 15:00 07/20/20 14:49 Barium Sulfate (Varibar Pudding) 230 ml NOW PRN MC RAD 07/17/20 15:00 07/20/20 14:49 Barium Sulfate (Varibar Thin Liquid powder) 148 gm NOW PRN MC RAD 07/17/20 15:00 07/20/20 14:49 Calcium Acetate (Phoslo) 1,334 mg TID ORAL 07/17/20 09:00 10/15/20 08:59 07/20/20 09:29 Ceftriaxone Sodium 1 gm/ Dextrose 55 ml @ 110 mls/hr Q24H IVPB 07/20/20 12:15 07/27/20 12:14 UNV Clonidine HCl (Catapres Tab) 0.1 mg Q4H PRN ORAL bp over 165 syst 07/16/20 22:45 10/14/20 22:44 07/19/20 12:06 Dexamethasone Sodium Phosphate (Decadron 10mg/ ml Inj) 6 mg DAILY IV 07/20/20 12:15 10/18/20 12:14 UNV Dextrose 1,000 ml @ 50 mls/hr Q20H IV 07/20/20 08:00 08/19/20 07:59 07/20/20 09:31 Diltiazem HCl (Cardizem Tab) 90 mg EVERY 8 HOURS ORAL 07/19/20 14:00 08/16/20 13:59 07/20/20 05:41 Docusate Sodium (Colace) 100 mg THREE TIMES A DAY ORAL 07/17/20 09:00 08/16/20 08:59 07/20/20 09:29 Haloperidol Lactate (Haldol) 5 mg Q6H PRN IM Agitation 07/17/20 17:30 08/31/20 17:29 07/18/20 21:34 Hydralazine HCl (Apresoline) 50 mg EVERY 6 HOURS ORAL 07/19/20 18:00 10/15/20 05:59 07/20/20 05:41 Nitroglycerin (Ntg) 0.4 mg Q5M PRN SL Prn Chest Pain 07/16/20 19:00 08/15/20 18:59 07/16/20 19:26 Pantoprazole (Protonix) 40 mg BID ORAL 07/17/20 18:00 08/16/20 08:59 07/20/20 09:29 Quetiapine Fumarate (SEROqueL) 50 mg Q12HR ORAL 07/17/20 14:00 08/31/20 13:59 07/20/20 09:30 Laboratory Tests 07/19/20 19:30: Arterial Blood pH 7.280L, Arterial Blood Partial Pressure CO2 56.8*H, Arterial Blood Partial Pressure O2 70.1L, Arterial Blood HCO3 26.1H, Arterial Blood Oxygen Saturation 90.9L, Arterial Blood Base Excess -1.1, Faheem Test Positive 07/20/20 08:35: White Blood Count 3.7L, Red Blood Count 2.77L, Hemoglobin 9.2L, Hematocrit 27.9L , Mean Corpuscular Volume 101H, Mean Corpuscular Hemoglobin 33.1H, Mean Corpusc ular Hemoglobin Concent 32.9, Red Cell Distribution Width 16.2H, Platelet Count 91L, Mean Platelet Volume 8.6, Neutrophils (%) (Auto) , Lymphocytes (%) (Auto) , Monocytes (%) (Auto) , Eosinophils (%) (Auto) , Basophils (%) (Auto) , Differential Total Cells Counted 100, Neutrophils % (Manual) 91H, Lymphocytes % (Manual) 6L, Monocytes % (Manual) 3, Eosinophils % (Manual) 0, Basophils % (Manual) 0, Band Neutrophils 0, Platelet Estimate DecreasedL, Platelet Morphology Normal, Anisocytosis 1+, Macrocytosis 1+, Sodium Level 143, Potassium Level 5.8H, Chloride Level 103, Carbon Dioxide Level 31, Anion Gap 9, Blood Urea Nitrogen 102H, Creatinine 7.3H, Estimat Glomerular Filtration Rate 5.5, Glucose Level 419#H, Calcium Level 9.0, Total Bilirubin 1.5H, Direct Bilirubin 0.9H, Aspartate Amino Transf (AST/SGOT) 45H, Alanine Aminotransferase (ALT/SGPT) 14, Alkaline Phosphatase 271H, Total Protein 7.3, Albumin 2.9L, Globulin 4.4, Albumin/Globulin Ratio 0.7L 07/20/20 09:50: Arterial Blood pH 7.228*L, Arterial Blood Partial Pressure CO2 68.7*H, Arterial Blood Partial Pressure O2 107.5H, Arterial Blood HCO3 28.0H, Arterial Blood Oxygen Saturation 96.2, Arterial Blood Base Excess -0.5, Faheem Test Positive Height (Feet): 5 Height (Inches): 4.00 Weight (Pounds): 180 General Appearance: confused, mild distress, agitated - At times Cardiovascular: tachycardia - Rate 80s Respiratory/Chest: decreased breath sounds Abdomen: distended Francis Falk MD Jul 20, 2020 12:16
[2020-07-20] MEDS: cefTRIAXone 1 GM in D5W 55 ML IVPB SCH (12:33)
[2020-07-20] MEDS: dexAMETHasone 10mg/ml Inj IV SCH (12:41)
--- NOTE | 2020-07-20 13:40 | Cardiac Electrophysiology PN ---
Assessment/Plan Assessment/Plan 1. Accelerated hypertension. On hydralazine 50 mg q6h, Cardizem 90 mg tid, HD and p.r.n.clonidine. EF 40- 45% 2. Severe hyperkalemia. No cardiac arrhythmia was noted despite potassium of 6.8. Currently in sinus rhythm. On hemodialysis under management of Dr. Falk. 3. End-stage renal disease, now on hemodialysis. 4. Hyponatremia, sodium 129. Fluid restriction per Dr. Falk. 5. Volume overload, BNP of more than 35,000 and EF 40-45%. On HD 6. Covid positive DW RN Subjective Subjective Confused in restraints. In Covid isolation. On 3 liter Nasal cannula. In SR Transferred from ICU Objective Last 24 Hour Vital Signs Date Time Temp Pulse Resp B/P (MAP) Pulse Ox O2 Delivery O2 Flow Rate FiO2 07/20/20 12:34 132/48 07/20/20 12:00 100.2 79 24 132/48 (76) 96 07/20/20 09:00 Non-Rebreather 07/20/20 08:00 98.9 84 20 159/60 (93) 98 07/20/20 08:00 86 07/20/20 05:41 121/61 07/20/20 05:41 75 121/61 07/20/20 04:00 79 07/20/20 04:00 98.8 70 19 141/50 (80) 99 07/20/20 00:00 98.8 83 18 166/62 (96) 99 07/20/20 00:00 82 07/20/20 00:00 160/70 07/19/20 22:00 86 177/61 07/19/20 21:00 Non-Rebreather 07/19/20 20:00 85 07/19/20 20:00 98.8 86 18 177/61 (99) 99 07/19/20 17:54 135/47 07/19/20 16:00 81 07/19/20 16:00 98.1 79 18 135/47 (76) 99 Intake and Output 07/19/20 07/20/20 19:00 07:00 Intake Total 270 ml Balance 270 ml Intake Oral 270 ml Laboratory Tests Test 07/19/20 19:30 07/20/20 08:35 12/18/20 09:50 Arterial Blood pH 7.280 (7.350-7.450) 7.228 (7.350-7.450) Arterial Blood Partial Pressure CO2 56.8 mmHg (35.0-45.0) *H 68.7 mmHg (35.0-45.0) *H Arterial Blood Partial Pressure O2 70.1 mmHg (75.0-100.0) L 107.5 mmHg (75.0-100.0) H Arterial Blood HCO3 26.1 mmol/L (22.0-26.0) H 28.0 mmol/L (22.0-26.0) H Arterial Blood Oxygen Saturation 90.9 % (95-100) L 96.2 % (95-100) Arterial Blood Base Excess -1.1 (-2-2) -0.5 (-2-2) Faheem Test Positive Positive White Blood Count 3.7 K/UL (4.8-10.8) L Red Blood Count 2.77 M/UL (4.20-5.40) L Hemoglobin 9.2 G/DL (12.0-16.0) L Hematocrit 27.9 % (37.0-47.0) L Mean Corpuscular Volume 101 FL (80-99) H Mean Corpuscular Hemoglobin 33.1 PG (27.0-31.0) H Mean Corpuscular Hemoglobin Concent 32.9 G/DL (32.0-36.0) Red Cell Distribution Width 16.2 % (11.6-14.8) H Platelet Count 91 K/UL (150-450) L Mean Platelet Volume 8.6 FL (6.5-10.1) Neutrophils (%) (Auto) % (45.0-75.0) Lymphocytes (%) (Auto) % (20.0-45.0) Monocytes (%) (Auto) % (1.0-10.0) Eosinophils (%) (Auto) % (0.0-3.0) Basophils (%) (Auto) % (0.0-2.0) Differential Total Cells Counted 100 Neutrophils % (Manual) 91 % (45-75) H Lymphocytes % (Manual) 6 % (20-45) L Monocytes % (Manual) 3 % (1-10) Eosinophils % (Manual) 0 % (0-3) Basophils % (Manual) 0 % (0-2) Band Neutrophils 0 % (0-8) Platelet Estimate Decreased L Platelet Morphology Normal Anisocytosis 1+ Macrocytosis 1+ Sodium Level 143 MMOL/L (136-145) Potassium Level 5.8 MMOL/L (3.5-5.1) H Chloride Level 103 MMOL/L (98-107) Carbon Dioxide Level 31 MMOL/L (21-32) Anion Gap 9 mmol/L (5-15) Blood Urea Nitrogen 102 mg/dL (7-18) H Creatinine 7.3 MG/DL (0.55-1.30) H Estimat Glomerular Filtration Rate 5.5 mL/min (>60) Glucose Level 419 MG/DL (74-106) #H Calcium Level 9.0 MG/DL (8.5-10.1) Total Bilirubin 1.5 MG/DL (0.2-1.0) H Direct Bilirubin 0.9 MG/DL (0.0-0.3) H Aspartate Amino Transf (AST/SGOT) 45 U/L (15-37) H Alanine Aminotransferase (ALT/SGPT) 14 U/L (12-78) Alkaline Phosphatase 271 U/L (46-116) H Total Protein 7.3 G/DL (6.4-8.2) Albumin 2.9 G/DL (3.4-5.0) L Globulin 4.4 g/dL Albumin/Globulin Ratio 0.7 (1.0-2.7) L Objective HEAD AND NECK: Showed no JVD. LUNGS: Coarse rhonchi. CARDIOVASCULAR: Regular S1 and S2 with no gallop or murmur. ABDOMEN: Soft. EXTREMITIES: No pitting edema. Zev Gatica MD Jul 20, 2020 13:40
--- NOTE | 2020-07-20 16:39 | NUR ---
NURSE NOTES: Pt still waiting for ICU bed.
--- NOTE | 2020-07-20 17:11 | Pulmonology Progress Note ---
Subjective ROS Limited/Unobtainable: Yes Interval Events: ICU transfer pending Constitutional: Denies: fever Allergies: Coded Allergies: No Known Allergies (Unverified , 05/12/17) Objective Last 24 Hour Vital Signs Date Time Temp Pulse Resp B/P (MAP) Pulse Ox O2 Delivery O2 Flow Rate FiO2 07/20/20 16:00 98.9 75 22 135/51 (79) 96 07/20/20 16:00 74 07/20/20 14:00 79 132/48 07/20/20 12:34 132/48 07/20/20 12:00 79 07/20/20 12:00 100.2 79 24 132/48 (76) 96 07/20/20 09:00 Non-Rebreather 07/20/20 08:00 98.9 84 20 159/60 (93) 98 07/20/20 08:00 86 07/20/20 05:41 121/61 07/20/20 05:41 75 121/61 07/20/20 04:00 79 07/20/20 04:00 98.8 70 19 141/50 (80) 99 07/20/20 00:00 98.8 83 18 166/62 (96) 99 07/20/20 00:00 82 07/20/20 00:00 160/70 07/19/20 22:00 86 177/61 07/19/20 21:00 Non-Rebreather 07/19/20 20:00 85 07/19/20 20:00 98.8 86 18 177/61 (99) 99 07/19/20 17:54 135/47 Intake and Output 07/19/20 07/20/20 19:00 07:00 Intake Total 270 ml Balance 270 ml Intake Oral 270 ml Objective 07/20 now on 15 L NRB mask; ICU transfer pending 07/19/2020 saturating well on 3 lpm NC 07/18/2020 saturating well on 3 lpm NC General Appearance: WD/WN, no acute distress, other - on soft restraints; lethargic HEENT: normocephalic Respiratory: chest wall non-tender Cardiovascular: normal rate, regular rhythm Laboratory Tests 07/19/20 19:30: Arterial Blood pH 7.280L, Arterial Blood Partial Pressure CO2 56.8*H, Arterial Blood Partial Pressure O2 70.1L, Arterial Blood HCO3 26.1H, Arterial Blood Oxygen Saturation 90.9L, Arterial Blood Base Excess -1.1, Faheem Test Positive 07/20/20 08:35: White Blood Count 3.7L, Red Blood Count 2.77L, Hemoglobin 9.2L, Hematocrit 27.9L , Mean Corpuscular Volume 101H, Mean Corpuscular Hemoglobin 33.1H, Mean Corpuscular Hemoglobin Concent 32.9, Red Cell Distribution Width 16.2H, Platelet Count 91L, Mean Platelet Volume 8.6, Neutrophils (%) (Auto) , Lymphocytes (%) (Auto) , Monocytes (%) (Auto) , Eosinophils (%) (Auto) , Basophils (%) (Auto) , Differential Total Cells Counted 100, Neutrophils % (Manual) 91H, Lymphocytes % (Manual) 6L, Monocytes % (Manual) 3, Eosinophils % (Manual) 0, Basophils % (Manual) 0, Band Neutrophils 0, Platelet Estimate DecreasedL, Platelet Morphology Normal, Anisocytosis 1+, Macrocytosis 1+, Sodium Level 143, Potassium Level 5.8H, Chloride Level 103, Carbon Dioxide Level 31, Anion Gap 9, Blood Urea Nitrogen 102H, Creatinine 7.3H, Estimat Glomerular Filtration Rate 5.5, Glucose Level 419#H, Calcium Level 9.0, Total Bilirubin 1.5H, Direct Bilirubin 0.9H, Aspartate Amino Transf (AST/SGOT) 45H, Alanine Aminotransferase (ALT/SGPT) 14, Alkaline Phosphatase 271H, Total Protein 7.3, Albumin 2.9L, Globulin 4.4, Albumin/Globulin Ratio 0.7L 07/20/20 09:50: Arterial Blood pH 7.228*L, Arterial Blood Partial Pressure CO2 68.7*H, Arterial Blood Partial Pressure O2 107.5H, Arterial Blood HCO3 28.0H, Arterial Blood Oxygen Saturation 96.2, Arterial Blood Base Excess -0.5, Faheem Test Positive Current Medications Medications (Trade) Dose Ordered Sig/Toya Route PRN Reason Start Time Stop Time Status Last Admin Dose Admin Acetaminophen (Tylenol) 500 mg Q4HR PRN ORAL For Pain 07/17/20 00:00 08/16/20 00:00 Acetaminophen (Tylenol) 500 mg Q8H PRN ORAL FHMP 07/16/20 22:45 08/15/20 22:44 Albuterol Sulfate (Proventil MDI) 2 puff Q4H PRN INH Shortness of Breath 07/16/20 19:00 10/14/20 18:59 Azithromycin (Zithromax) 250 mg DAILY ORAL 07/19/20 09:00 07/26/20 08:59 07/20/20 09:30 Calcium Acetate (Phoslo) 1,334 mg TID ORAL 07/17/20 09:00 10/15/20 08:59 07/20/20 09:29 Ceftriaxone Sodium 1 gm/ Dextrose 55 ml @ 110 mls/hr Q24H IVPB 07/20/20 12:15 07/27/20 12:14 07/20/20 12:33 Clonidine HCl (Catapres Tab) 0.1 mg Q4H PRN ORAL bp over 165 syst 07/16/20 22:45 10/14/20 22:44 07/19/20 12:06 Dexamethasone Sodium Phosphate (Decadron 10mg/ ml Inj) 6 mg DAILY IV 07/20/20 12:15 07/29/20 09:01 07/20/20 12:41 Dextrose 1,000 ml @ 50 mls/hr Q20H IV 07/20/20 08:00 08/19/20 07:59 07/20/20 09:31 Diltiazem HCl (Cardizem Tab) 90 mg EVERY 8 HOURS ORAL 07/19/20 14:00 08/16/20 13:59 07/20/20 05:41 Docusate Sodium (Colace) 100 mg THREE TIMES A DAY ORAL 07/17/20 09:00 08/16/20 08:59 07/20/20 09:29 Haloperidol Lactate (Haldol) 5 mg Q6H PRN IM Agitation 07/17/20 17:30 08/31/20 17:29 07/18/20 21:34 Hydralazine HCl (Apresoline) 50 mg EVERY 6 HOURS ORAL 07/19/20 18:00 10/15/20 05:59 07/20/20 12:34 Nitroglycerin (Ntg) 0.4 mg Q5M PRN SL Prn Chest Pain 07/16/20 19:00 08/15/20 18:59 07/16/20 19:26 Pantoprazole (Protonix) 40 mg BID ORAL 07/17/20 18:00 08/16/20 08:59 07/20/20 09:29 Quetiapine Fumarate (SEROqueL) 50 mg Q12HR ORAL 07/17/20 14:00 08/31/20 13:59 07/20/20 09:30 Assessment/Plan Assessment/Plan 1. COVID-19 pneumonia. - Defer Remdesivir choice to ID - Continue O2 2. COPD exacerbation. - on breathing tx prn 3. Pneumonia - CXR shows b/l opacities - on decadron per ID 4. Hypertensive emergency. - BP control per cardiology 5. Leukocytosis. 6. Anemia. likely secondary to #11 7. Hyponatremia.; resolved 8. Hyperkalemia 9. Hypochloridemia.; resolved 10. Hyperglycemia. 11. ESRD, on dialysis. 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 The care for this patient was discussed with my supervising physician. Time spent for this case was approximately 31 minutes. Agustín Wadsworth Jul 20, 2020 17:10
--- NOTE | 2020-07-20 17:52 | NUR ---
TRANSFER TO FLOOR: Patient transferred to ICU, per Dr Falk's order. Report given to Malia Ryan. Belongings and medications given to receiving nurse. hall monitor removed. Daughter Alice informed of the transfer..
--- NOTE | 2020-07-20 17:55 | NUR ---
NURSE NOTES: Received pt a transfer from Telemetry per bed lethargic,nonresponsive to verbal commands,on !00% NRB mask 15L, O2 sat 88%, V/S unstable,noted with agonal breathing,RR 12-14/min HR 57/min,BP 82/37,skin warm and dry ,IV site to RW with IVF [id number] at 50 ml/hr,SR up x2 HOB elevated bed lock in lowest position,will continue with plans of care.
--- NOTE | 2020-07-20 18:00 | NUR ---
NURSE NOTES: Stat ABG done ph 6.868, PCO2 195.9Po2 70.5O2 Sat 81.5,tried to page Dr Allen for intubation orders,box toe cementer Kyung called ER MD Aguilera to intubate pt.
--- NOTE | 2020-07-20 18:10 | NUR ---
NURSE NOTES: Pt orally intubated and connected to vent, ETT 7.5,lip line 24,AC 20 TV 500,FIO2 100%,Peep 5, pt tolerating vent settings tolerared,no resp distress noted.RT suctioned a lot of food particles fr the ETT.
--- NOTE | 2020-07-20 18:50 | NUR ---
NURSE NOTES: pt with no IV access,ER MD inserted a RT femoral TLC,Xray ordered for placement confirmation.
--- NOTE | 2020-07-20 19:30 | NUR ---
NURSE NOTES: Received pt just newly intubated orally. on ac mode , Bilateral soft wrist restraints applied for safety, SR on the monitor, Bp stable afebrile. Left arm AV shunt with good bruit. Awaiting for hemodialysis., Pt is oliguric cleaned up pt. Will continue to monitor.
--- NOTE | 2020-07-20 19:35 | NUR ---
NURSE HAND-OFF REPORT: Latest Vital Signs: Temperature 98.9 , Pulse 69 , B/P 82 /37 , Respiratory Rate 20 , O2 SAT 99 , Nasal Cannula, O2 Flow Rate 3.0 . Vital Sign Comment:Guarded] EKG Rhythm: Sinus Rhythm Rhythm change?: N MD Notified?: - MD Response: Latest Elizabeth Fall Score: 35 Fall Risk: Medium Risk Safety Measures: Call light Within Reach, Bed Alarm Zone 1, Side Rails Side Rails x3, Bed position Low and Locked. Fall Precautions: Yellow Socks Yellow Gown Door Sign Patient Fall Education Report given to Denis Grimes RN..
--- NOTE | 2020-07-20 19:45 | NUR ---
NURSE NOTES: Family member ,pt's daughter Alice notified re pt transfer to ICU , intubation and connection to Ventilator.
--- NOTE | 2020-07-20 21:05 | Diagnostic Imaging Report ---
EXAM: XR Chest, 1 View CLINICAL HISTORY: S/P INTUB TECHNIQUE: Frontal view of the chest. COMPARISON: 07/16/2020 chest x-ray FINDINGS: Lungs: Central airspace opacities which may be infectious. Pleural space: Unremarkable. Heart: Enlarged. Mediastinum: Unremarkable. Bones/joints: Unremarkable. Tubes, lines and devices: Endotracheal tube within the thoracic inlet terming at the cynthia. Consider retraction by 2 cm. IMPRESSION: 1. Endotracheal tube within the thoracic inlet terming at the cynthia. Consider retraction by 2 cm. 2. Central airspace opacities which may be infectious.
--- NOTE | 2020-07-20 21:37 | General Progress Note ---
Subjective ROS Limited/Unobtainable: Yes Allergies: Coded Allergies: No Known Allergies (Unverified , 05/12/17) Objective Last 24 Hour Vital Signs Date Time Temp Pulse Resp B/P (MAP) Pulse Ox O2 Delivery O2 Flow Rate FiO2 07/20/20 18:34 69 20 99 Mechanical Ventilator 100 07/20/20 18:29 69 20 100 07/20/20 18:00 82/37 07/20/20 16:00 98.9 75 22 135/51 (79) 96 07/20/20 16:00 74 07/20/20 14:00 79 132/48 07/20/20 12:34 132/48 07/20/20 12:00 79 07/20/20 12:00 100.2 79 24 132/48 (76) 96 07/20/20 09:00 Non-Rebreather 07/20/20 08:00 98.9 84 20 159/60 (93) 98 07/20/20 08:00 86 07/20/20 05:41 121/61 07/20/20 05:41 75 121/61 07/20/20 04:00 79 07/20/20 04:00 98.8 70 19 141/50 (80) 99 07/20/20 00:00 98.8 83 18 166/62 (96) 99 07/20/20 00:00 82 07/20/20 00:00 160/70 07/19/20 22:00 86 177/61 Intake and Output 07/19/20 07/20/20 19:00 07:00 Intake Total 270 ml Balance 270 ml Intake Oral 270 ml Laboratory Tests 07/20/20 08:35: White Blood Count 3.7L, Red Blood Count 2.77L, Hemoglobin 9.2L, Hematocrit 27.9L , Mean Corpuscular Volume 101H, Mean Corpuscular Hemoglobin 33.1H, Mean Corpuscular Hemoglobin Concent 32.9, Red Cell Distribution Width 16.2H, Platelet Count 91L, Mean Platelet Volume 8.6, Neutrophils (%) (Auto) , Lymphocytes (%) (Auto) , Monocytes (%) (Auto) , Eosinophils (%) (Auto) , Basophils (%) (Auto) , Differential Total Cells Counted 100, Neutrophils % (Manual) 91H, Lymphocytes % (Manual) 6L, Monocytes % (Manual) 3, Eosinophils % (Manual) 0, Basophils % (Manual) 0, Band Neutrophils 0, Platelet Estimate DecreasedL, Platelet Morphology Normal, Anisocytosis 1+, Macrocytosis 1+, Sodium Level 143, Potassium Level 5.8H, Chloride Level 103, Carbon Dioxide Level 31, Anion Gap 9, Blood Urea Nitrogen 102H, Creatinine 7.3H, Estimat Glomerular Filtration Rate 5.5, Glucose Level 419#H, Calcium Level 9.0, Total Bilirubin 1.5H, Direct Bilirubin 0.9H, Aspartate Amino Transf (AST/SGOT) 45H, Alanine Aminotransferase (ALT/SGPT) 14, Alkaline Phosphatase 271H, Total Protein 7.3, Albumin 2.9L, Globulin 4.4, Albumin/Globulin Ratio 0.7L 07/20/20 09:50: Arterial Blood pH 7.228*L, Arterial Blood Partial Pressure CO2 68.7*H, Arterial Blood Partial Pressure O2 107.5H, Arterial Blood HCO3 28.0H, Arterial Blood Oxygen Saturation 96.2, Arterial Blood Base Excess -0.5, Faheem Test Positive 07/20/20 17:53: Arterial Blood pH 6.868*L, Arterial Blood Partial Pressure CO2 195.9*H, Arterial Blood Partial Pressure O2 70.5L, Arterial Blood HCO3 34.8H, Arterial Blood Oxygen Saturation 81.5*L, Arterial Blood Base Excess -1.4, Faheem Test Positive 07/20/20 20:48: Arterial Blood pH 7.310L, Arterial Blood Partial Pressure CO2 53.8H, Arterial Blood Partial Pressure O2 49.4*L, Arterial Blood HCO3 26.5H, Arterial Blood Oxygen Saturation 82.4*L, Arterial Blood Base Excess -0.2, Faheem Test Positive Height (Feet): 5 Height (Inches): 4.00 Weight (Pounds): 180 Assessment/Plan Problem List: (1) Pneumonia ICD Codes: J18.9 - Pneumonia, unspecified organism SNOMED: 264686778 (2) Hypertension ICD Codes: I10 - Essential (primary) hypertension SNOMED: 59960212 (3) Renal failure ICD Codes: N19 - Unspecified kidney failure SNOMED: 33582691 (4) Anemia in chronic kidney disease (CKD) ICD Codes: N18.9 - Chronic kidney disease, unspecified; D63.1 - Anemia in chronic kidney disease SNOMED: 662367056 (5) weakness (6) ESRD (end stage renal disease) ICD Codes: N18.6 - End stage renal disease SNOMED: 96672726 (7) Diabetic nephropathy with proteinuria ICD Codes: E11.21 - Type 2 diabetes mellitus with diabetic nephropathy SNOMED: 70628306, 243787448 Status: deteriorating Assessment/Plan: lehtargic abnormal ABG transfer to icu covid positive poor prognosis spoke with romario afebrile respiratory worsening niddm covid positive pna copd Makenna Daniel MD Jul 20, 2020 21:37
--- NOTE | 2020-07-20 21:37 | NUR ---
NURSE NOTES: Called Dr Allen with pts blood gas result as well as pts agitation, awaiting for md to call back.
--- NOTE | 2020-07-20 22:00 | NUR ---
NURSE NOTES: 2cm from ETT were pulled back by RT. per Dr Holbrook order.
--- NOTE | 2020-07-20 22:24 | Emergency Room Report ---
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 COVID-19 Screening: Positive COVID-19 COVID-19 Testing Source: na Nursing Documentation-PMH Hx Cardiac Problems: Yes - CHF, HTN Hx Hypertension: Yes Hx Pacemaker: No Hx Asthma: Yes Hx COPD: Yes Hx Diabetes: Yes Hx Cancer: No Hx Dialysis: Yes - [facility]-LAST DIALYSIS 07/06/2019 Hx Neurological Problems: Yes Hx Transient Ischemic Attacks: Yes - ACUTE ISCHEMIC HEART DISEASE Hx Dementia: No Hx Alzheimer's Disease: No Hx Parkinson's Disease: No Hx Meningitis: No Hx Encephalitis: No Hx Seizures: No Hx Epilepsy: No Hx Multiple Sclerosis: No Hx Cerebral Palsy: No Hx Amyotrophic Lat Sclerosis: No Hx Gu[place] Syndrome: No Hx Paralysis: No Hx Peripheral Neuropathy: No Hx Spinal Cord Injury: No Hx Head Trauma: No Hx Traumatic Brain Injury: No Hx Memory Loss: No Hx Concentration Difficulty: No Hx Speech Problem: No Hx Tremors: No Hx Vertigo: Yes Hx Dizziness: No Hx Syncope: No Hx Headaches: No Hx Aphasia: No Hx Dysphasia: No Hx Numbness: No Hx Weakness: Yes Hx Fatigue: No Hx Neurologic Surgery: No Hx Brain Shunt: No Physical Exam Vital Signs Date Time Temp Pulse Resp B/P (MAP) Pulse Ox O2 Delivery O2 Flow Rate FiO2 07/16/20 18:44 99.1 63 18 253/217 (229) 92 Room Air 07/16/20 19:44 100 07/16/20 23:00 4.0 Procedures Central Line Central Line : Consent: Emergent Central Line Lumen: triple Maximal Sterile Barrier Tech: yes cap, yes mask, yes sterile gown, yes sterile gloves, yes large sterile sheet, yes hand hygiene, yes chlorhexidine prep Central Line Postion: femoral (R) US Guided Line?: Yes Vessel visualized with U/S: Right Femoral Vein Ultrasound Findings: Collapsible Vessel, Vessel Patent, Color flow present, Visualize vessel puncture Complications: none Central Line Post Position: sutured Attempts: One Patient Tolerated: Well Complications: None Intubation Intubation : Consent: Emergent Intubation Method: orotracheal Tube Size (cm): 7.5 Medications: Other - No sedation required Breath Sounds after Intubation: equal Intubation Complications: no complications Post Intubation Xray: Yes Progress/Xray Impression: Withdrawal tube 2 cm Attempts: One Patient Tolerated: Well Complications: None Medical Decision Making Diagnostic Impression: Primary Impression: ESRD (end stage renal disease) Additional Impressions: Suspected 2019 novel coronavirus infection Hypertensive crisis Hyperkalemia Last Vital Signs Date Time Temp Pulse Resp B/P (MAP) Pulse Ox O2 Delivery O2 Flow Rate FiO2 07/20/20 22:00 88 151/54 07/20/20 18:34 20 99 Mechanical Ventilator 100 07/20/20 16:00 98.9 07/19/20 09:00 3.0 Disposition: ADMITTED INPATIENT Condition: Serious Referrals: Makenna Daniel MD (PCP) Savage Aguilera M.D. Jul 20, 2020 22:24
--- NOTE | 2020-07-20 23:08 | Psychiatric Progress Note ---
Psychiatry Progress Note Psychiatry Progress Note Medications Current Medications Medications (Trade) Dose Ordered Sig/Toya Route PRN Reason Start Time Stop Time Status Last Admin Dose Admin Acetaminophen (Tylenol) 500 mg Q4HR PRN ORAL For Pain 07/17/20 00:00 08/16/20 00:00 Acetaminophen (Tylenol) 500 mg Q8H PRN ORAL FHMP 07/16/20 22:45 08/15/20 22:44 Albuterol Sulfate (Proventil MDI) 2 puff Q4H PRN INH Shortness of Breath 07/16/20 19:00 10/14/20 18:59 Azithromycin (Zithromax) 250 mg DAILY ORAL 07/19/20 09:00 07/26/20 08:59 07/20/20 09:30 Calcium Acetate (Phoslo) 1,334 mg TID ORAL 07/17/20 09:00 10/15/20 08:59 07/20/20 09:29 Ceftriaxone Sodium 1 gm/ Dextrose 55 ml @ 110 mls/hr Q24H IVPB 07/20/20 12:15 07/27/20 12:14 07/20/20 12:33 Clonidine HCl (Catapres Tab) 0.1 mg Q4H PRN ORAL bp over 165 syst 07/16/20 22:45 10/14/20 22:44 07/19/20 12:06 Dexamethasone Sodium Phosphate (Decadron 10mg/ ml Inj) 6 mg DAILY IV 07/20/20 12:15 07/29/20 09:01 07/20/20 12:41 Dextrose 1,000 ml @ 50 mls/hr Q20H IV 07/20/20 08:00 08/19/20 07:59 07/20/20 09:31 Diltiazem HCl (Cardizem Tab) 90 mg EVERY 8 HOURS ORAL 07/19/20 14:00 08/16/20 13:59 07/20/20 05:41 Docusate Sodium (Colace) 100 mg THREE TIMES A DAY ORAL 07/17/20 09:00 08/16/20 08:59 07/20/20 09:29 Haloperidol Lactate (Haldol) 5 mg Q6H PRN IM Agitation 07/17/20 17:30 08/31/20 17:29 07/18/20 21:34 Hydralazine HCl (Apresoline) 50 mg EVERY 6 HOURS ORAL 07/19/20 18:00 10/15/20 05:59 07/20/20 12:34 Lorazepam (Ativan 2mg/ml 1ml) 1 mg Q4H PRN IV For Anxiety 07/20/20 22:15 07/27/20 22:14 Nitroglycerin (Ntg) 0.4 mg Q5M PRN SL Prn Chest Pain 07/16/20 19:00 08/15/20 18:59 07/16/20 19:26 Pantoprazole (Protonix) 40 mg BID ORAL 07/17/20 18:00 08/16/20 08:59 07/20/20 09:29 Quetiapine Fumarate (SEROqueL) 50 mg Q12HR ORAL 07/17/20 14:00 08/31/20 13:59 07/20/20 09:30 Neurological/Psychiatric: Reports: anxiety, depressed, emotional problems; Denies: no symptoms, headache, numbness, paresthesia, pre-existing deficit, seizure, tingling, tremors, weakness, other Allergies: Coded Allergies: No Known Allergies (Unverified , 05/12/17) Objective Data Height (Feet): 5 Height (Inches): 4.00 Weight (Pounds): 180 General Appearance: confused, mild distress, agitated - At times Additional Comments: MENTAL STATUS EXAMINATION: The patient is having waxing and waning consciousness. Mood is irritable and anxious. Affect is blunted, congruent with mood. Thought process is concrete. Thought content, no suicidal or homicidal ideation. Cognition is impaired. Insight and judgment is impaired. Assessment/Plan [place] I: ASSESSMENT: [place] I Acute toxic encephalopathy. [place] II Deferred. [place] III COVID-19. [place] IV Low. [place] V 20. PLAN: 1. We will start the patient on low dose of antipsychotics. 2. restraints. 3. Discussed with the nurse. Status: deteriorating Status Narrative ASSESSMENT: [place] I Acute toxic encephalopathy. [place] II Deferred. [place] III COVID-19. [place] IV Low. [place] V 20. PLAN: 1. We will start the patient on low dose of antipsychotics. 2. restraints. 3. Discussed with the nurse. Assessment/Plan: ASSESSMENT: [place] I Acute toxic encephalopathy. [place] [facility] II Deferred. [place] [facility] III COVID-19. [place] [facility] IV Low. [place] V 20. PLAN: 1. We will start the patient on low dose of antipsychotics. 2. restraints. 3. Discussed with the nurse. Alecia Collins MD Jul 20, 2020 23:08
--- NOTE | 2020-07-20 23:16 | NUR ---
NURSE NOTES: Hemodialysis was finished with 2 liters out,
[2020-07-20] MEDS: LORazepam Inj 2mg/ml 1ml IV PRN (23:20)
--- NOTE | 2020-07-20 23:30 | NUR ---
NURSE NOTES: OGT inserted , and noticed some yellowis greenish gastric contents, bowel sounds were best heard during auscultation.
[2020-07-21] VITALS (31 sets, daily range): BP systolic 127–172; BP diastolic 42–83
[2020-07-21] MEDS: HydrALAZINE 50mg tab ORAL SCH ×2 (00:33→05:50)
--- NOTE | 2020-07-21 02:35 | NUR ---
NURSE NOTES:KUB done with pts OGT
--- NOTE | 2020-07-21 02:49 | Diagnostic Imaging Report ---
EXAM: XR Abdomen, 2 Views CLINICAL HISTORY: F/U TECHNIQUE: Frontal view of the abdomen/pelvis with upright view of the abdomen. COMPARISON: 07/20/2020. FINDINGS: Lower thorax: Cardiomegaly. Patchy airspace disease throughout both lungs worrisome for atypical pneumonias. Intraperitoneal space: No free air. Gastrointestinal tract: Unremarkable. No dilation. Bones/joints: Osteopenia. Vasculature: Atherosclerotic disease of the aortic knob. Tubes, lines and devices: NG tube is noted in place with its tip well below the diaphragm, in good position. IMPRESSION: NG tube is noted in place in good position.
--- NOTE | 2020-07-21 04:00 | NUR ---
NURSE NOTES: Complete bed bath with bed chaged was done.
--- NOTE | 2020-07-21 05:00 | NUR ---
NURSE NOTES: Temp 100F, cooling measures started.
[2020-07-21] MEDS: dilTIAZem HCl 90mg tab ORAL SCH (05:51)
--- NOTE | 2020-07-21 06:00 | NUR ---
NURSE NOTES: No resp. distress noted. VSS
[2020-07-21 06:12] LABS: HEMATOCRIT 26.9 % (37.0-47.0); HEMOGLOBIN 8.7 G/DL (12.0-16.0); MEAN CORPUSCULAR VOLUME 103 FL (80-99); PLATELET COUNT 93 K/UL (150-450); RED BLOOD COUNT 2.61 M/UL (4.20-5.40); RED CELL DISTRIBUTION WIDTH 15.4 % (11.6-14.8); WHITE BLOOD COUNT 5.5 K/UL (4.8-10.8)
[2020-07-21 06:25] LABS: CALCIUM 8.4 MG/DL (8.5-10.1); CREATININE 5.1 MG/DL (0.55-1.30); POTASSIUM 4.2 MMOL/L (3.5-5.1)
--- NOTE | 2020-07-21 07:30 | NUR ---
NURSE NOTES: LATE ENTRY: RECEIVED REPORT FROM CASTILLO Ramsey PT IN BED. RESTLESS, SR/ JUNCTIONAL. VS ON MONITOR: HR 90, BP 154/50. SP02 98%, RR 20. FEBRILE AT 100.9 AX. TEMP. NONVERBAL. BILATERAL RADIAL PULSES PRESENT. CAP REFILL <3SEC. HOT TO TOUCH. SKIN MOIST. PT INTUBATED 7.5, 24CM AT LIP. VENT SETTINGS: AC 20, VT 500, PEEP 5. SECRETIONS MINIMAL. BILATERAL LUNG SOUNDS RHONCHI. DIAL SECRETIONS. OGT, CLAMPED. NPO. NO BM AT THIS TIME. ABDOMEN LARGE, NON TENDER. BOWEL SOUNDS ACTIVE IN ALL QUADRANTS. OLIGURIC. IV ACCESS RT FEMORAL TLC. D5W AT 50ML/HR. BILATERAL SOFT WRIST RESTRAINTS IN PLACE. ROM AND CIRCULATION CHECK. BED LOCKED, IN LOW POSITION. SIDE RAILS X2. WILL CONTINUE TO MONITOR PT.
[2020-07-21] MEDS: Docusate 100mg cap ORAL SCH (08:59)
[2020-07-21] MEDS: dexAMETHasone 10mg/ml Inj IV SCH (09:00)
[2020-07-21] MEDS: Azithromycin 250mg tab ORAL SCH (09:00)
[2020-07-21] MEDS: Acetaminophen 500mg (ES) tab ORAL PRN ×2 (09:01→17:42)
--- NOTE | 2020-07-21 09:01 | NUR ---
NURSE NOTES: PT DISPLAY S/S OF PAIN AND DISCOMFORT. FROWNING, DISCOMFORT TYLENOL 500MG GIVEN OGT. WILL CONTINUE TO MONITOR PT.
[2020-07-21] MEDS: LORazepam Inj 2mg/ml 1ml IV PRN ×3 (09:40→21:57)
--- NOTE | 2020-07-21 09:40 | NUR ---
NURSE NOTES: PT THRASHING AROUND IN BED. KICKING LEGS OVER SIDE RAILS. HR, RR AND BP ELEVATED. PT UNABLE TO COMFORT. FOR PT ANXIETY LEVEL AND SAFETY ATIVAN 1MG, 0.5 ML IVP GIVEN. WILL CONTINUE TO MONITOR PT.
--- NOTE | 2020-07-21 11:00 | NUR ---
NURSE NOTES: LATE ENTRY: MD. DOUGLAS HERE TO SEE PT. WAS INFORMED INTUBATED AND OGT CLAMPED, NPO. LABS WNL. H.D YESTERDAY 2L OUT. BP STABLE, NO PRESSORS. WILL PLACE OWN ORDERS.
--- NOTE | 2020-07-21 11:58 | Nephrology Progress Note ---
Assessment/Plan Problem List: (1) Hypertensive kidney disease (2) ESRD (end stage renal disease) (3) Hyperkalemia (4) Suspected 2019 novel coronavirus infection Assessment 70-year-old female with end-stage renal disease Presented with volume overload and hyperkalemia Suspected COVID-19 virus infection Hypertensive emergency Diabetes mellitus CHF Plan July 21: Patient now in ICU. Intubated on ventilator. Was dialyzed. Blood pressure well maintained. Has NG tube. Will start medication through NG tube and start feeding. Continue per consultants. Hemodialysis as needed. July 20: Patient seen and examined. Discussed with RN. Remains encephalopathic. Poor ABG results. Patient at high risk at this stage. We will transfer patients to ICU for possible airway support. Patient due for dialysis today. Hyperkalemia probably secondary to acidosis. Will arrange for NG tube insertion and give medication through NG tube. July 19: Mental status appears slightly improved. Was dialyzed 2 days in a row. Blood pressure medication adjusted. Next dialysis tomorrow. Continue per consultants. July 18: Patient encephalopathic, was dialyzed yesterday and had 3 L removed. Will order dialysis again today. Continue per ID. Blood pressure medication adjusted. July 17: Stat hemodialysis ordered. Kayexalate for high potassium. Pulmonary support with oxygen or BiPAP as needed Blood pressure support with proper parameters Per orders Subjective ROS Limited/Unobtainable: Yes Objective Objective Last 24 Hour Vital Signs Date Time Temp Pulse Resp B/P (MAP) Pulse Ox O2 Delivery O2 Flow Rate FiO2 07/21/20 11:52 91 07/21/20 11:00 86 20 145/46 (79) 100 07/21/20 10:30 86 20 138/48 (78) 100 07/21/20 10:00 89 20 141/46 (77) 100 07/21/20 09:30 98 22 132/83 (99) 100 07/21/20 09:00 92 153/59 (90) 100 07/21/20 08:30 89 23 148/55 (86) 07/21/20 08:00 100.9 93 24 154/50 (84) 100 07/21/20 08:00 95 07/21/20 07:30 82 20 144/42 (76) 97 07/21/20 07:00 91 20 145/45 (78) 96 07/21/20 06:00 81 20 162/50 (87) 95 07/21/20 05:51 79 158/49 07/21/20 05:50 158/49 07/21/20 05:00 79 20 159/47 (84) 95 07/21/20 04:00 78 07/21/20 04:00 100.0 79 20 162/47 (85) 96 07/21/20 03:00 90 20 157/53 (87) 95 07/21/20 02:54 104 20 100 07/21/20 02:00 78 20 166/49 (88) 100 07/21/20 01:00 76 20 172/49 (90) 100 07/21/20 00:33 168/50 07/21/20 00:00 74 07/21/20 00:00 99.0 79 23 166/49 (88) 100 07/20/20 23:51 85 22 165/83 100 07/20/20 23:29 86 20 100 07/20/20 23:20 86 22 156/57 100 07/20/20 23:00 82 20 156/52 (86) 99 07/20/20 22:00 85 21 140/49 (79) 07/20/20 22:00 88 151/54 07/20/20 21:00 99 20 152/61 (91) 99 07/20/20 21:00 Mechanical Ventilator 07/20/20 20:45 99 20 163/61 (95) 99 07/20/20 20:00 98.0 97 20 137/56 (83) 100 07/20/20 18:34 69 20 99 Mechanical Ventilator 100 07/20/20 18:29 69 20 100 07/20/20 18:00 82/37 07/20/20 16:00 98.9 75 22 135/51 (79) 96 07/20/20 16:00 74 07/20/20 14:00 79 132/48 07/20/20 12:34 132/48 07/20/20 12:00 79 07/20/20 12:00 100.2 79 24 132/48 (76) 96 Intake and Output 07/20/20 07/21/20 19:00 07:00 Intake Total 355 ml 550 ml Output Total 2000 ml Balance 355 ml -1450 ml Intake Oral 0 ml IV Total 355 ml 550 ml Output Hemodialysis UF 2000 ml # Voids 1 3 # Bowel Movements 2 Current Medications Medications (Trade) Dose Ordered Sig/Toya Route PRN Reason Start Time Stop Time Status Last Admin Dose Admin Acetaminophen (Tylenol) 500 mg Q4HR PRN ORAL For Pain 07/17/20 00:00 08/16/20 00:00 07/21/20 09:01 Acetaminophen (Tylenol) 500 mg Q8H PRN ORAL FHMP 07/16/20 22:45 08/15/20 22:44 Albuterol Sulfate (Proventil MDI) 2 puff Q4H PRN INH Shortness of Breath 07/16/20 19:00 10/14/20 18:59 Azithromycin (Zithromax) 250 mg DAILY ORAL 07/19/20 09:00 07/26/20 08:59 07/21/20 09:00 Calcium Acetate (Phoslo) 1,334 mg TID ORAL 07/17/20 09:00 10/15/20 08:59 07/21/20 08:59 Ceftriaxone Sodium 1 gm/ Dextrose 55 ml @ 110 mls/hr Q24H IVPB 07/20/20 12:15 07/27/20 12:14 07/20/20 12:33 Clonidine HCl (Catapres Tab) 0.1 mg Q4H PRN ORAL bp over 165 syst 07/16/20 22:45 10/14/20 22:44 07/19/20 12:06 Dexamethasone Sodium Phosphate (Decadron 10mg/ ml Inj) 6 mg DAILY IV 07/20/20 12:15 07/29/20 09:01 07/21/20 09:00 Dextrose 1,000 ml @ 50 mls/hr Q20H IV 07/20/20 08:00 08/19/20 07:59 07/21/20 04:29 Diltiazem HCl (Cardizem Tab) 90 mg EVERY 8 HOURS ORAL 07/19/20 14:00 08/16/20 13:59 07/21/20 05:51 Docusate Sodium (Colace) 100 mg THREE TIMES A DAY ORAL 07/17/20 09:00 08/16/20 08:59 07/21/20 08:59 Haloperidol Lactate (Haldol) 5 mg Q6H PRN IM Agitation 07/17/20 17:30 08/31/20 17:29 07/18/20 21:34 Hydralazine HCl (Apresoline) 50 mg EVERY 6 HOURS ORAL 07/19/20 18:00 10/15/20 05:59 07/21/20 05:50 Lorazepam (Ativan 2mg/ml 1ml) 1 mg Q4H PRN IV For Anxiety 07/20/20 22:15 07/27/20 22:14 07/20/20 23:20 Nitroglycerin (Ntg) 0.4 mg Q5M PRN SL Prn Chest Pain 07/16/20 19:00 08/15/20 18:59 07/16/20 19:26 Pantoprazole (Protonix) 40 mg BID ORAL 07/17/20 18:00 08/16/20 08:59 07/21/20 08:59 Quetiapine Fumarate (SEROqueL) 50 mg Q12HR ORAL 07/17/20 14:00 08/31/20 13:59 07/21/20 08:59 Laboratory Tests 07/20/20 17:53: Arterial Blood pH 6.868*L, Arterial Blood Partial Pressure CO2 195.9*H, Arterial Blood Partial Pressure O2 70.5L, Arterial Blood HCO3 34.8H, Arterial Blood Oxygen Saturation 81.5*L, Arterial Blood Base Excess -1.4, Faheem Test Positive 07/20/20 20:48: Arterial Blood pH 7.310L, Arterial Blood Partial Pressure CO2 53.8H, Arterial Blood Partial Pressure O2 49.4*L, Arterial Blood HCO3 26.5H, Arterial Blood Oxygen Saturation 82.4*L, Arterial Blood Base Excess -0.2, Faheem Test Positive 07/21/20 05:30: White Blood Count 5.5, Red Blood Count 2.61L, Hemoglobin 8.7L, Hematocrit 26.9L, Mean Corpuscular Volume 103H, Mean Corpuscular Hemoglobin 33.4H, Mean Corpuscular Hemoglobin Concent 32.5, Red Cell Distribution Width 15.4H, Platelet Count 93L, Mean Platelet Volume 8.2, Neutrophils (%) (Auto) , Lymphocytes (%) (Auto) , Monocytes (%) (Auto) , Eosinophils (%) (Auto) , Basophils (%) (Auto) , Differential Total Cells Counted 100, Neutrophils % (Manual) 93H, Lymphocytes % (Manual) 2L, Monocytes % (Manual) 5, Eosinophils % (Manual) 0, Basophils % ( Manual) 0, Band Neutrophils 0, Platelet Estimate DecreasedL, Platelet Morphology Normal, Hypochromasia 1+, Anisocytosis 1+, Macrocytosis 1+, Sodium Level 141, Potassium Level 4.2, Chloride Level 100, Carbon Dioxide Level 27, Anion Gap 14, Blood Urea Nitrogen 65H, Creatinine 5.1H, Estimat Glomerular Filtration Rate 8.3, Glucose Level 328H, Calcium Level 8.4L Height (Feet): 5 Height (Inches): 4.00 Weight (Pounds): 180 General Appearance: no apparent distress EENT: other - Intubated on ventilator Cardiovascular: tachycardia Respiratory/Chest: decreased breath sounds Abdomen: distended Francis Falk MD Jul 21, 2020 11:58
--- NOTE | 2020-07-21 12:03 | NUR ---
NURSE NOTES: LATE ENTRY: PT IN BED. RESTING, SR/ JUNCTIONAL. VS ON MONITOR: HR 83, BP 143/47. SP02 98%, RR 20. FEBRILE AT 99.8 AX. TEMP. NONVERBAL. BILATERAL RADIAL PULSES PRESENT. SKIN MOIST. PT INTUBATED 7.5, 24CM AT LIP. VENT SETTINGS: AC 20, VT 500, PEEP 5. SECRETIONS MINIMAL. BILATERAL LUNG SOUNDS RHONCHI. DIAL SECRETIONS. OGT, TUBE FEEDING NEPRO AT 10ML/HR. GOAL 30ML/HR. NO BM AT THIS TIME. ABDOMEN LARGE, NON TENDER. BOWEL SOUNDS ACTIVE IN ALL QUADRANTS. OLIGURIC. IV ACCESS RT FEMORAL TLC. TKO. BILATERAL SOFT WRIST RESTRAINTS IN PLACE. ROM AND CIRCULATION CHECK. BED LOCKED, IN LOW POSITION. SIDE RAILS X2. WILL CONTINUE TO MONITOR PT.
[2020-07-21] MEDS: Docusate 100mg/10ml Liq NG SCH ×2 (12:45→17:42)
[2020-07-21] MEDS: cefTRIAXone 1 GM in D5W 55 ML IVPB SCH (12:46)
--- NOTE | 2020-07-21 13:49 | NUR ---
NURSE NOTES: LATE ENTRY: MD. GILLIAM HERE TO SEE PT. WAS INFORMED FI02 100. PT INTUBATED YESTERDAY AND OGT INSERTED YESTERDAY. TUBE FEEDING STARTED TODAY ON NEPRO AT 10ML/HR, GOAL 30ML/HR. FEBRILE AT 100.9 AX.
--- NOTE | 2020-07-21 16:45 | Pulmonology Progress Note ---
Subjective ROS Limited/Unobtainable: Yes Interval Events: Intubated overnight Constitutional: Denies: fever Allergies: Coded Allergies: No Known Allergies (Unverified , 05/12/17) Objective Last 24 Hour Vital Signs Date Time Temp Pulse Resp B/P (MAP) Pulse Ox O2 Delivery O2 Flow Rate FiO2 07/21/20 16:30 90 24 148/54 (85) 99 07/21/20 16:00 99.6 149 23 129/61 (83) 100 07/21/20 16:00 85 07/21/20 15:00 91 21 148/59 (88) 98 07/21/20 14:00 81 20 142/50 (80) 98 07/21/20 13:00 88 20 141/48 (79) 07/21/20 12:00 99.8 83 20 143/45 (77) 07/21/20 12:00 100 07/21/20 11:52 91 07/21/20 11:00 86 20 145/46 (79) 100 07/21/20 10:30 86 20 138/48 (78) 100 07/21/20 10:00 89 20 141/46 (77) 100 07/21/20 09:30 98 22 132/83 (99) 100 07/21/20 09:00 92 153/59 (90) 100 07/21/20 08:30 89 23 148/55 (86) 07/21/20 08:00 100.9 93 24 154/50 (84) 100 07/21/20 08:00 95 07/21/20 07:30 82 20 144/42 (76) 97 07/21/20 07:00 91 20 145/45 (78) 96 07/21/20 06:00 81 20 162/50 (87) 95 07/21/20 05:51 79 158/49 07/21/20 05:50 158/49 07/21/20 05:00 79 20 159/47 (84) 95 07/21/20 04:00 78 07/21/20 04:00 100.0 79 20 162/47 (85) 96 07/21/20 03:00 90 20 157/53 (87) 95 07/21/20 02:54 104 20 100 07/21/20 02:00 78 20 166/49 (88) 100 12/19/20 01:00 76 20 172/49 (90) 100 07/21/20 00:33 168/50 07/21/20 00:00 74 07/21/20 00:00 99.0 79 23 166/49 (88) 100 07/20/20 23:51 85 22 165/83 100 07/20/20 23:29 86 20 100 07/20/20 23:20 86 22 156/57 100 07/20/20 23:00 82 20 156/52 (86) 99 07/20/20 22:00 85 21 140/49 (79) 07/20/20 22:00 88 151/54 07/20/20 21:00 99 20 152/61 (91) 99 07/20/20 21:00 Mechanical Ventilator 07/20/20 20:45 99 20 163/61 (95) 99 07/20/20 20:00 98.0 97 20 137/56 (83) 100 07/20/20 18:34 69 20 99 Mechanical Ventilator 100 07/20/20 18:29 69 20 100 07/20/20 18:00 82/37 Intake and Output 07/20/20 07/21/20 19:00 07:00 Intake Total 355 ml 600 ml Output Total 2000 ml Balance 355 ml -1400 ml Intake Oral 0 ml IV Total 355 ml 600 ml Output Hemodialysis UF 2000 ml # Voids 1 3 # Bowel Movements 2 General Appearance: WD/WN, no acute distress, other HEENT: normocephalic Respiratory: chest wall non-tender Cardiovascular: normal rate, regular rhythm Laboratory Tests 07/20/20 17:53: Arterial Blood pH 6.868*L, Arterial Blood Partial Pressure CO2 195.9*H, Arterial Blood Partial Pressure O2 70.5L, Arterial Blood HCO3 34.8H, Arterial Blood Oxygen Saturation 81.5*L, Arterial Blood Base Excess -1.4, Faheem Test Positive 07/20/20 20:48: Arterial Blood pH 7.310L, Arterial Blood Partial Pressure CO2 53.8H, Arterial Blood Partial Pressure O2 49.4*L, Arterial Blood HCO3 26.5H, Arterial Blood Oxygen Saturation 82.4*L, Arterial Blood Base Excess -0.2, Faheem Test Positive 07/21/20 05:30: White Blood Count 5.5, Red Blood Count 2.61L, Hemoglobin 8.7L, Hematocrit 26.9L, Mean Corpuscular Volume 103H, Mean Corpuscular Hemoglobin 33.4H, Mean Corpuscular Hemoglobin Concent 32.5, Red Cell Distribution Width 15.4H, Platelet Count 93L, Mean Platelet Volume 8.2, Neutrophils (%) (Auto) , Lymphocytes (%) (Auto) , Monocytes (%) (Auto) , Eosinophils (%) (Auto) , Basophils (%) (Auto) , Differential Total Cells Counted 100, Neutrophils % (Manual) 93H, Lymphocytes % (Manual) 2L, Monocytes % (Manual) 5, Eosinophils % (Manual) 0, Basophils % (Manual) 0, Band Neutrophils 0, Platelet Estimate DecreasedL, Platelet Morphology Normal, Hypochromasia 1+, Anisocytosis 1+, Macrocytosis 1+, Sodium Level 141, Potassium Level 4.2, Chloride Level 100, Carbon Dioxide Level 27, Anion Gap 14, Blood Urea Nitrogen 65H, Creatinine 5.1H, Estimat Glomerular Filtration Rate 8.3, Glucose Level 328H, Calcium Level 8.4L Current Medications Medications (Trade) Dose Ordered Sig/Toya Route PRN Reason Start Time Stop Time Status Last Admin Dose Admin Acetaminophen (Tylenol) 500 mg Q4HR PRN ORAL For Pain 07/17/20 00:00 08/16/20 00:00 07/21/20 09:01 Acetaminophen (Tylenol) 500 mg Q8H PRN ORAL FHMP 07/16/20 22:45 08/15/20 22:44 Albuterol Sulfate (Proventil MDI) 2 puff Q4H PRN INH Shortness of Breath 07/16/20 19:00 10/14/20 18:59 Azithromycin (Zithromax) 250 mg DAILY ORAL 07/19/20 09:00 07/26/20 08:59 07/21/20 09:00 Calcium Acetate (Phoslo) 1,334 mg TID ORAL 07/17/20 09:00 10/15/20 08:59 07/21/20 12:46 Ceftriaxone Sodium 1 gm/ Dextrose 55 ml @ 110 mls/hr Q24H IVPB 07/20/20 12:15 07/27/20 12:14 07/21/20 12:46 Clonidine HCl (Catapres Tab) 0.1 mg Q4H PRN NG bp over 165 syst 07/21/20 12:00 10/14/20 22:44 Dexamethasone Sodium Phosphate (Decadron 10mg/ ml Inj) 6 mg DAILY IV 07/20/20 12:15 07/29/20 09:01 07/21/20 09:00 Diltiazem HCl (Cardizem Tab) 60 mg EVERY 6 HOURS NG 07/21/20 18:00 08/16/20 13:59 Docusate Sodium (Colace) 100 mg THREE TIMES A DAY NG 07/21/20 13:00 08/20/20 12:59 07/21/20 12:45 Haloperidol Lactate (Haldol) 5 mg Q6H PRN IM Agitation 07/17/20 17:30 08/31/20 17:29 07/18/20 21:34 Hydralazine HCl (Apresoline) 50 mg EVERY 8 HOURS NG 07/21/20 22:00 10/15/20 05:59 Lorazepam (Ativan 2mg/ml 1ml) 1 mg Q4H PRN IV For Anxiety 07/20/20 22:15 07/27/20 22:14 07/20/20 23:20 Pantoprazole (Protonix) 40 mg EVERY 12 HOURS IVP 07/21/20 21:00 08/20/20 20:59 Quetiapine Fumarate (SEROqueL) 50 mg Q12HR ORAL 07/17/20 14:00 08/31/20 13:59 07/21/20 08:59 Assessment/Plan Assessment/Plan Assessment/Plan 1. COVID-19 pneumonia. 2. COPD exacerbation. 3. Pneumonia - CXR shows b/l opacities - she received decadron once which has now been discontinued 4. Hypertensive emergency. - BP control per cardiology 5. Leukocytosis.; improving 6. Anemia. 7. Hyponatremia.; resolved 8. Hyperkalemia.; resolved 9. Hypochloridemia.; resolved 10. Hyperglycemia. 11. ESRD, on dialysis. 12. Respiratory failure; now intubated PLAN We will follow carefully as ventilation equipment tender. Continue O2 Vent; AC mode Steroids Defer Remdesivir choice to ID; renal failure precludes use The care for this patient was discussed with my supervising physician. Time spent for this case was approximately 31 minutes. The patient was seen and examined at bedside and all new and available data was reviewed in the patients chart. I agree with the above findings, impression, and plan. (Patient was seen earlier today. Signature timestamp does not reflect patient encounter time) Levy Law MD, MD Jul 21, 2020 16:45
--- NOTE | 2020-07-21 16:48 | Pulmonology Progress Note ---
Subjective ROS Limited/Unobtainable: Yes Interval Events: see in ICU Constitutional: Denies: fever Allergies: Coded Allergies: No Known Allergies (Unverified , 05/12/17) Objective Last 24 Hour Vital Signs Date Time Temp Pulse Resp B/P (MAP) Pulse Ox O2 Delivery O2 Flow Rate FiO2 07/21/20 16:30 90 24 148/54 (85) 99 07/21/20 16:00 99.6 149 23 129/61 (83) 100 07/21/20 16:00 91 07/21/20 15:00 91 21 148/59 (88) 98 07/21/20 14:00 81 20 142/50 (80) 98 07/21/20 13:00 88 20 141/48 (79) 07/21/20 12:00 99.8 83 20 143/45 (77) 07/21/20 12:00 100 07/21/20 11:52 91 07/21/20 11:00 86 20 145/46 (79) 100 07/21/20 10:30 86 20 138/48 (78) 100 07/21/20 10:00 89 20 141/46 (77) 100 07/21/20 09:30 98 22 132/83 (99) 100 07/21/20 09:00 92 153/59 (90) 100 07/21/20 08:30 89 23 148/55 (86) 07/21/20 08:00 100.9 93 24 154/50 (84) 100 07/21/20 08:00 95 07/21/20 07:30 82 20 144/42 (76) 97 07/21/20 07:00 91 20 145/45 (78) 96 07/21/20 06:00 81 20 162/50 (87) 95 07/21/20 05:51 79 158/49 07/21/20 05:50 158/49 07/21/20 05:00 79 20 159/47 (84) 95 07/21/20 04:00 78 07/21/20 04:00 100.0 79 20 162/47 (85) 96 07/21/20 03:00 90 20 157/53 (87) 95 07/21/20 02:54 104 20 100 07/21/20 02:00 78 20 166/49 (88) 100 07/21/20 01:00 76 20 172/49 (90) 100 07/21/20 00:33 168/50 07/21/20 00:00 74 07/21/20 00:00 99.0 79 23 166/49 (88) 100 07/20/20 23:51 85 22 165/83 100 07/20/20 23:29 86 20 100 07/20/20 23:20 86 22 156/57 100 07/20/20 23:00 82 20 156/52 (86) 99 07/20/20 22:00 85 21 140/49 (79) 07/20/20 22:00 88 151/54 07/20/20 21:00 99 20 152/61 (91) 99 07/20/20 21:00 Mechanical Ventilator 07/20/20 20:45 99 20 163/61 (95) 99 07/20/20 20:00 98.0 97 20 137/56 (83) 100 07/20/20 18:34 69 20 99 Mechanical Ventilator 100 07/20/20 18:29 69 20 100 07/20/20 18:00 82/37 Intake and Output 07/20/20 07/21/20 19:00 07:00 Intake Total 355 ml 600 ml Output Total 2000 ml Balance 355 ml -1400 ml Intake Oral 0 ml IV Total 355 ml 600 ml Output Hemodialysis UF 2000 ml # Voids 1 3 # Bowel Movements 2 Objective 07/21 now in ICU; s/p intubation, NG tube 07/20 now on 15 L NRB mask; ICU transfer pending 07/19/2020 saturating well on 3 lpm NC 07/18/2020 saturating well on 3 lpm NC General Appearance: WD/WN, no acute distress, other - intubation HEENT: normocephalic Respiratory: chest wall non-tender, crackles/rales Cardiovascular: normal rate, regular rhythm Laboratory Tests 07/20/20 17:53: Arterial Blood pH 6.868*L, Arterial Blood Partial Pressure CO2 195.9*H, Arterial Blood Partial Pressure O2 70.5L, Arterial Blood HCO3 34.8H, Arterial Blood Oxygen Saturation 81.5*L, Arterial Blood Base Excess -1.4, Faheem Test Positive 07/20/20 20:48: Arterial Blood pH 7.310L, Arterial Blood Partial Pressure CO2 53.8H, Arterial Blood Partial Pressure O2 49.4*L, Arterial Blood HCO3 26.5H, Arterial Blood Oxygen Saturation 82.4*L, Arterial Blood Base Excess -0.2, Faheem Test Positive 07/21/20 05:30: White Blood Count 5.5, Red Blood Count 2.61L, Hemoglobin 8.7L, Hematocrit 26.9L, Mean Corpuscular Volume 103H, Mean Corpuscular Hemoglobin 33.4H, Mean Corpuscular Hemoglobin Concent 32.5, Red Cell Distribution Width 15.4H, Platelet Count 93L, Mean Platelet Volume 8.2, Neutrophils (%) (Auto) , Lymphocytes (%) (Auto) , Monocytes (%) (Auto) , Eosinophils (%) (Auto) , Basophils (%) (Auto) , Differential Total Cells Counted 100, Neutrophils % (Manual) 93H, Lymphocytes % (Manual) 2L, Monocytes % (Manual) 5, Eosinophils % (Manual) 0, Basophils % (Manual) 0, Band Neutrophils 0, Platelet Estimate DecreasedL, Platelet Morphology Normal, Hypochromasia 1+, Anisocytosis 1+, Macrocytosis 1+, Sodium Level 141, Potassium Level 4.2, Chloride Level 100, Carbon Dioxide Level 27, Anion Gap 14, Blood Urea Nitrogen 65H, Creatinine 5.1H, Estimat Glomerular Filtration Rate 8.3, Glucose Level 328H, Calcium Level 8.4L Current Medications Medications (Trade) Dose Ordered Sig/Toya Route PRN Reason Start Time Stop Time Status Last Admin Dose Admin Acetaminophen (Tylenol) 500 mg Q4HR PRN ORAL For Pain 07/17/20 00:00 08/16/20 00:00 07/21/20 09:01 Acetaminophen (Tylenol) 500 mg Q8H PRN ORAL FHMP 07/16/20 22:45 08/15/20 22:44 Albuterol Sulfate (Proventil MDI) 2 puff Q4H PRN INH Shortness of Breath 07/16/20 19:00 10/14/20 18:59 Azithromycin (Zithromax) 250 mg DAILY ORAL 07/19/20 09:00 07/26/20 08:59 07/21/20 09:00 Calcium Acetate (Phoslo) 1,334 mg TID ORAL 07/17/20 09:00 10/15/20 08:59 07/21/20 12:46 Ceftriaxone Sodium 1 gm/ Dextrose 55 ml @ 110 mls/hr Q24H IVPB 07/20/20 12:15 07/27/20 12:14 07/21/20 12:46 Clonidine HCl (Catapres Tab) 0.1 mg Q4H PRN NG bp over 165 syst 07/21/20 12:00 10/14/20 22:44 Dexamethasone Sodium Phosphate (Decadron 10mg/ ml Inj) 6 mg DAILY IV 07/20/20 12:15 07/29/20 09:01 07/21/20 09:00 Diltiazem HCl (Cardizem Tab) 60 mg EVERY 6 HOURS NG 07/21/20 18:00 08/16/20 13:59 Docusate Sodium (Colace) 100 mg THREE TIMES A DAY NG 07/21/20 13:00 08/20/20 12:59 07/21/20 12:45 Haloperidol Lactate (Haldol) 5 mg Q6H PRN IM Agitation 07/17/20 17:30 08/31/20 17:29 07/18/20 21:34 Hydralazine HCl (Apresoline) 50 mg EVERY 8 HOURS NG 07/21/20 22:00 10/15/20 05:59 Lorazepam (Ativan 2mg/ml 1ml) 1 mg Q4H PRN IV For Anxiety 07/20/20 22:15 07/27/20 22:14 07/20/20 23:20 Pantoprazole (Protonix) 40 mg EVERY 12 HOURS IVP 07/21/20 21:00 08/20/20 20:59 Quetiapine Fumarate (SEROqueL) 50 mg Q12HR ORAL 07/17/20 14:00 08/31/20 13:59 07/21/20 08:59 Assessment/Plan Assessment/Plan 1. COVID-19 pneumonia. - Defer Remdesivir choice to ID - now intubated - on Decadron, azithromycin, ceftriaxone 2. COPD exacerbation. - on breathing tx prn 3. Pneumonia - CXR shows b/l opacities - on decadron per ID 4. Hypertensive emergency. - BP control per cardiology 5. Leukocytosis. 6. Anemia. likely secondary to #11 7. Hyponatremia.; resolved 8. Hyperkalemia; resolved 9. Hypochloridemia.; resolved 10. Hyperglycemia. 11. ESRD, on dialysis. 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 The care for this patient was discussed with my supervising physician. Time spent for this case was approximately 31 minutes. Agustín Wadsworth Jul 21, 2020 16:48
--- NOTE | 2020-07-21 17:00 | NUR ---
NURSE NOTES: MD. KELLER HERE TO SEE PT. PT VERY RESTLESS. HR ELEVATION TO 130'S, JUNCTIONAL WITH ST. SBP ELEVATION 130-150. INTUBATED YESTERDAY, FI02 100%. NO NEW ORDERS
--- NOTE | 2020-07-21 17:39 | Cardiac Electrophysiology PN ---
Assessment/Plan Assessment/Plan 1. Accelerated hypertension. On hydralazine 50 mg q6h, Cardizem 90 mg tid, HD and p.r.n.clonidine. EF 40- 45% 2. Severe hyperkalemia. No cardiac arrhythmia was noted despite potassium of 6.8. Currently in sinus rhythm. On hemodialysis under management of Dr. Falk. 3. End-stage renal disease, now on hemodialysis. 4. Hyponatremia, sodium 129. Fluid restriction per Dr. Falk. 5. Volume overload, BNP of more than 35,000 and EF 40-45%. On HD 6. Covid PNA and resp failure on the VEnt with 100% Fio2 Covid positive 07/11 and 07/17 DW RN Subjective Subjective Confused in restraints. In Covid isolation. Intubated at 1800 yesterday and now in ICU on 100% fIO2 AND pEEP 5 hAD 2 LITER hd YESTERDAY Objective Last 24 Hour Vital Signs Date Time Temp Pulse Resp B/P (MAP) Pulse Ox O2 Delivery O2 Flow Rate FiO2 07/21/20 17:00 90 21 145/52 (83) 99 07/21/20 16:30 90 24 148/54 (85) 99 07/21/20 16:00 99.6 149 23 129/61 (83) 100 07/21/20 16:00 100 07/21/20 16:00 85 07/21/20 15:00 91 21 148/59 (88) 98 07/21/20 14:00 81 20 142/50 (80) 98 07/21/20 13:00 88 20 141/48 (79) 07/21/20 12:00 99.8 83 20 143/45 (77) 07/21/20 12:00 100 07/21/20 11:52 91 07/21/20 11:00 86 20 145/46 (79) 100 07/21/20 10:30 86 20 138/48 (78) 100 07/21/20 10:00 89 20 141/46 (77) 100 07/21/20 09:30 98 22 132/83 (99) 100 07/21/20 09:00 92 153/59 (90) 100 07/21/20 08:30 89 23 148/55 (86) 07/21/20 08:00 100 07/21/20 08:00 100.9 93 24 154/50 (84) 100 07/21/20 08:00 95 07/21/20 07:30 82 20 144/42 (76) 97 07/21/20 07:00 91 20 145/45 (78) 96 07/21/20 06:00 81 20 162/50 (87) 95 07/21/20 05:51 79 158/49 07/21/20 05:50 158/49 07/21/20 05:00 79 20 159/47 (84) 95 07/21/20 04:00 78 07/21/20 04:00 100.0 79 20 162/47 (85) 96 07/21/20 03:00 90 20 157/53 (87) 95 07/21/20 02:54 104 20 100 07/21/20 02:00 78 20 166/49 (88) 100 07/21/20 01:00 76 20 172/49 (90) 100 07/21/20 00:33 168/50 07/21/20 00:00 74 07/21/20 00:00 99.0 79 23 166/49 (88) 100 07/20/20 23:51 85 22 165/83 100 07/20/20 23:29 86 20 100 07/20/20 23:20 86 22 156/57 100 07/20/20 23:00 82 20 156/52 (86) 99 07/20/20 22:00 85 21 140/49 (79) 07/20/20 22:00 88 151/54 07/20/20 21:00 99 20 152/61 (91) 99 07/20/20 21:00 Mechanical Ventilator 07/20/20 20:45 99 20 163/61 (95) 99 07/20/20 20:00 98.0 97 20 137/56 (83) 100 07/20/20 18:34 69 20 99 Mechanical Ventilator 100 07/20/20 18:29 69 20 100 07/20/20 18:00 82/37 Intake and Output 07/20/20 07/21/20 19:00 07:00 Intake Total 355 ml 600 ml Output Total 2000 ml Balance 355 ml -1400 ml Intake Oral 0 ml IV Total 355 ml 600 ml Output Hemodialysis UF 2000 ml # Voids 1 3 # Bowel Movements 2 Laboratory Tests Test 07/20/20 17:53 07/20/20 20:48 07/21/20 05:30 Arterial Blood pH 6.868 (7.350-7.450) 7.310 (7.350-7.450) Arterial Blood Partial Pressure CO2 195.9 mmHg (35.0-45.0) *H 53.8 mmHg (35.0-45.0) H Arterial Blood Partial Pressure O2 70.5 mmHg (75.0-100.0) L 49.4 mmHg (75.0-100.0) Arterial Blood HCO3 34.8 mmol/L (22.0-26.0) H 26.5 mmol/L (22.0-26.0) H Arterial Blood Oxygen Saturation 81.5 % (95-100) *L 82.4 % (95-100) *L Arterial Blood Base Excess -1.4 (-2-2) -0.2 (-2-2) Faheem Test Positive Positive White Blood Count 5.5 K/UL (4.8-10.8) Red Blood Count 2.61 M/UL (4.20-5.40) L Hemoglobin 8.7 G/DL (12.0-16.0) L Hematocrit 26.9 % (37.0-47.0) L Mean Corpuscular Volume 103 FL (80-99) H Mean Corpuscular Hemoglobin 33.4 PG (27.0-31.0) H Mean Corpuscular Hemoglobin Concent 32.5 G/DL (32.0-36.0) Red Cell Distribution Width 15.4 % (11.6-14.8) H Platelet Count 93 K/UL (150-450) L Mean Platelet Volume 8.2 FL (6.5-10.1) Neutrophils (%) (Auto) % (45.0-75.0) Lymphocytes (%) (Auto) % (20.0-45.0) Monocytes (%) (Auto) % (1.0-10.0) Eosinophils (%) (Auto) % (0.0-3.0) Basophils (%) (Auto) % (0.0-2.0) Differential Total Cells Counted 100 Neutrophils % (Manual) 93 % (45-75) H Lymphocytes % (Manual) 2 % (20-45) L Monocytes % (Manual) 5 % (1-10) Eosinophils % (Manual) 0 % (0-3) Basophils % (Manual) 0 % (0-2) Band Neutrophils 0 % (0-8) Platelet Estimate Decreased L Platelet Morphology Normal Hypochromasia 1+ Anisocytosis 1+ Macrocytosis 1+ Sodium Level 141 MMOL/L (136-145) Potassium Level 4.2 MMOL/L (3.5-5.1) Chloride Level 100 MMOL/L (98-107) Carbon Dioxide Level 27 MMOL/L (21-32) Anion Gap 14 mmol/L (5-15) Blood Urea Nitrogen 65 mg/dL (7-18) H Creatinine 5.1 MG/DL (0.55-1.30) H Estimat Glomerular Filtration Rate 8.3 mL/min (>60) Glucose Level 328 MG/DL (74-106) H Calcium Level 8.4 MG/DL (8.5-10.1) L Objective HEAD AND NECK: Showed no JVD.Orally intubated LUNGS: Coarse rhonchi. CARDIOVASCULAR: Regular S1 and S2 with no gallop or murmur. ABDOMEN: Soft. EXTREMITIES: No pitting edema. Zev Gatica MD Jul 21, 2020 17:39
[2020-07-21] MEDS: dilTIAZem HCl 60mg tab NG SCH (17:44)
--- NOTE | 2020-07-21 19:12 | NUR ---
NURSE HAND-OFF REPORT: Latest Vital Signs: Temperature 99.6 , Pulse 143 , B/P 127 /57 , Respiratory Rate 24 , O2 SAT 98 , Nasal Cannula, O2 Flow Rate 3.0 . Vital Sign Comment: EKG Rhythm: Sinus Tachycardia Rhythm change?: N MD Notified?: - MD Response: Latest Elizabeth Fall Score: 35 Fall Risk: Medium Risk Safety Measures: Call light Within Reach, Bed Alarm Zone 1, Side Rails Side Rails x2, Bed position Low and Locked. Fall Precautions: Door Sign Report given to .FERDINAND DANG R.N
--- NOTE | 2020-07-21 19:30 | NUR ---
NURSE NOTES: Received report from SIDNEY Webb. Pt is resting on the bed and awake and slight agitated. Pt has ETT and orally intubated and Vent dependent and setting with AC; 20, T: 500, P: 5, FiO2 100% and SaO2 97-98% noted. Given suction and oral care. Pt has OGT and patent and on running with Nephro @ 15cc/hr and no residual noted. checked BT: 99.5F and keep cooling measure. Pt is anuria. Noted multiple scabs on body. Pt has Rt. femoral TLC and dressing is clean and dry. Pt has bilateral soft restraint. Trying to release restraint when during care but Pt still trying to touch ETT and OGT. Given verbal cueing but didn't understand. checked comfort and circulation. Placed fall precaution. On Proper isolation for [id number]. Will continue to care plan.
[2020-07-21] MEDS: Dyna-Hex 2% Top Sol 2oz TOPIC SCH (20:17)
[2020-07-21] MEDS: Pantoprazole Inj IVP SCH (20:31)
--- NOTE | 2020-07-21 21:16 | General Progress Note ---
Subjective ROS Limited/Unobtainable: Yes Allergies: Coded Allergies: No Known Allergies (Unverified , 05/12/17) Objective Last 24 Hour Vital Signs Date Time Temp Pulse Resp B/P (MAP) Pulse Ox O2 Delivery O2 Flow Rate FiO2 07/21/20 20:00 100 07/21/20 20:00 99.5 96 24 146/50 (82) 97 07/21/20 19:30 103 21 137/50 (79) 98 07/21/20 19:16 91 22 100 07/21/20 19:00 84 21 136/42 (73) 99 07/21/20 18:30 85 24 136/43 (74) 99 07/21/20 18:00 143 24 127/57 (80) 98 07/21/20 17:46 150 23 151/71 07/21/20 17:44 150 158/71 07/21/20 17:00 90 21 145/52 (83) 99 07/21/20 16:30 90 24 148/54 (85) 99 07/21/20 16:00 99.6 149 23 129/61 (83) 100 07/21/20 16:00 100 07/21/20 16:00 85 07/21/20 15:15 144 21 100 07/21/20 15:00 91 21 148/59 (88) 98 07/21/20 14:00 81 20 142/50 (80) 98 07/21/20 13:00 88 20 141/48 (79) 07/21/20 12:00 99.8 83 20 143/45 (77) 07/21/20 12:00 100 07/21/20 11:52 91 07/21/20 11:00 86 20 145/46 (79) 100 07/21/20 10:42 86 22 100 07/21/20 10:30 86 20 138/48 (78) 100 07/21/20 10:00 89 20 141/46 (77) 100 07/21/20 09:40 123 23 140/65 96 07/21/20 09:30 98 22 132/83 (99) 100 07/21/20 09:00 92 153/59 (90) 100 07/21/20 08:30 89 23 148/55 (86) 07/21/20 08:00 100 07/21/20 08:00 100.9 93 24 154/50 (84) 100 07/21/20 08:00 95 07/21/20 07:50 91 29 100 07/21/20 07:30 82 20 144/42 (76) 97 07/21/20 07:00 91 20 145/45 (78) 96 07/21/20 06:00 81 20 162/50 (87) 95 07/21/20 05:51 79 158/49 07/21/20 05:50 158/49 07/21/20 05:00 79 20 159/47 (84) 95 07/21/20 04:00 78 07/21/20 04:00 100.0 79 20 162/47 (85) 96 07/21/20 03:00 90 20 157/53 (87) 95 07/21/20 02:54 104 20 100 07/21/20 02:00 78 20 166/49 (88) 100 07/21/20 01:00 76 20 172/49 (90) 100 07/21/20 00:33 168/50 07/21/20 00:00 74 07/21/20 00:00 99.0 79 23 166/49 (88) 100 07/20/20 23:51 85 22 165/83 100 07/20/20 23:29 86 20 100 07/20/20 23:20 86 22 156/57 100 07/20/20 23:00 82 20 156/52 (86) 99 07/20/20 22:00 85 21 140/49 (79) 07/20/20 22:00 88 151/54 Intake and Output 07/20/20 07/21/20 19:00 07:00 Intake Total 355 ml 600 ml Output Total 2000 ml Balance 355 ml -1400 ml Intake Oral 0 ml IV Total 355 ml 600 ml Output Hemodialysis UF 2000 ml # Voids 1 3 # Bowel Movements 2 Laboratory Tests 07/21/20 05:30: White Blood Count 5.5, Red Blood Count 2.61L, Hemoglobin 8.7L, Hematocrit 26.9L, Mean Corpuscular Volume 103H, Mean Corpuscular Hemoglobin 33.4H, Mean Corpuscular Hemoglobin Concent 32.5, Red Cell Distribution Width 15.4H, Platelet Count 93L, Mean Platelet Volume 8.2, Neutrophils (%) (Auto) , Lymphocytes (%) (Auto) , Monocytes (%) (Auto) , Eosinophils (%) (Auto) , Basophils (%) (Auto) , Differential Total Cells Counted 100, Neutrophils % (Manual) 93H, Lymphocytes % (Manual) 2L, Monocytes % (Manual) 5, Eosinophils % (Manual) 0, Basophils % (Manual) 0, Band Neutrophils 0, Platelet Estimate DecreasedL, Platelet Morphology Normal, Hypochromasia 1+, Anisocytosis 1+, Macrocytosis 1+, Sodium Level 141, Potassium Level 4.2, Chloride Level 100, Carbon Dioxide Level 27, Anion Gap 14, Blood Urea Nitrogen 65H, Creatinine 5.1H, Estimat Glomerular Filtration Rate 8.3, Glucose Level 328H, Calcium Level 8.4L Height (Feet): 5 Height (Inches): 4.00 Weight (Pounds): 180 Assessment/Plan Problem List: (1) Pneumonia ICD Codes: J18.9 - Pneumonia, unspecified organism SNOMED: 173874448 (2) Hypertension ICD Codes: I10 - Essential (primary) hypertension SNOMED: 37151205 (3) Renal failure ICD Codes: N19 - Unspecified kidney failure SNOMED: 24350584 (4) Anemia in chronic kidney disease (CKD) ICD Codes: N18.9 - Chronic kidney disease, unspecified; D63.1 - Anemia in chronic kidney disease SNOMED: 371918401 (5) weakness (6) ESRD (end stage renal disease) ICD Codes: N18.6 - End stage renal disease SNOMED: 28917287 (7) Diabetic nephropathy with proteinuria ICD Codes: E11.21 - Type 2 diabetes mellitus with diabetic nephropathy SNOMED: 79816501, 896197941 Status: deteriorating Assessment/Plan: intubated lethargic htn anemia no pressor resp failure covid positive niddm covid positive pna copd Makenna Daniel MD Jul 21, 2020 21:16
[2020-07-21] MEDS: HydrALAZINE 50mg tab NG SCH (21:51)
--- NOTE | 2020-07-21 22:00 | NUR ---
NURSE NOTES: Pt is resting on the bed agitated. Given Ativan prn medication as ordered. SaO2 97% with current Vent setting. on color television console monitor with SR. Given suction and oral care. changed position. will continue to monitor any change of condition.
[2020-07-22] VITALS (27 sets, daily range): BP systolic 87–144; BP diastolic 37–52
--- NOTE | 2020-07-22 | NUR ---
NURSE NOTES: Pt is sleeping on the bed. SaO2 94-95% with Vent. Provided suction and oral care. BT: 98.9F. OGT feeding is tolerated well. Turn and reposition. Placed fall precaution. Will continue to monitor any change of condition.
[2020-07-22] MEDS: dilTIAZem HCl 60mg tab NG SCH ×4 (00:22→17:14)
--- NOTE | 2020-07-22 02:00 | NUR ---
NURSE NOTES: Pt is sleeping on the bed. SaO2 94% with current Vent setting. Provided suction and oral care.OGT feeding is tolerated well and no residual noted. Increase tube feeding @ 30cc/hr. Changed position. Placed fall precaution. Will continue to monitor any change of condition.
[2020-07-22] MEDS: LORazepam Inj 2mg/ml 1ml IV PRN ×2 (02:22→06:47)
--- NOTE | 2020-07-22 04:00 | NUR ---
NURSE NOTES: Morning care was done. Cleaned Pt and applied lotion and cream. Changed Rt. femoral TLC dressing. Provide mouth care and suction. Checked BT: 99.2F. Keep cooling measure. Placed fall precaution. Will continue to monitor any change of condition.
[2020-07-22] MEDS: HydrALAZINE 50mg tab NG SCH ×3 (05:51→22:29)
[2020-07-22 06:00] LABS: HEMATOCRIT 28.5 % (37.0-47.0); HEMOGLOBIN 8.9 G/DL (12.0-16.0); MEAN CORPUSCULAR VOLUME 108 FL (80-99); PLATELET COUNT 93 K/UL (150-450); RED BLOOD COUNT 2.64 M/UL (4.20-5.40); RED CELL DISTRIBUTION WIDTH 15.6 % (11.6-14.8); WHITE BLOOD COUNT 5.3 K/UL (4.8-10.8)
--- NOTE | 2020-07-22 06:00 | NUR ---
NURSE NOTES: Suction and oral care was done. Keep cooling measure. Turn and reposition.
[2020-07-22 06:40] LABS: ALANINE AMINOTRANSFERASE 13 U/L (12-78); ALBUMIN 2.3 G/DL (3.4-5.0); ALBUMIN/GLOBULIN RATIO 0.6 (1.0-2.7); ALKALINE PHOSPHATASE 211 U/L (46-116); ANION GAP 13 mmol/L (5-15); ASPARTATE AMINO TRANSFERASE 30 U/L (15-37); BILIRUBIN,TOTAL 1.2 MG/DL (0.2-1.0); BLOOD UREA NITROGEN 104 mg/dL (7-18); CALCIUM 8.1 MG/DL (8.5-10.1); CARBON DIOXIDE 27 MMOL/L (21-32); CHLORIDE 100 MMOL/L (98-107); POTASSIUM 4.9 MMOL/L (3.5-5.1); SODIUM 140 MMOL/L (136-145)
[2020-07-22 06:56] LABS: BILIRUBIN,DIRECT 0.6 MG/DL (0.0-0.3)
--- NOTE | 2020-07-22 07:40 | NUR ---
NURSE HAND-OFF REPORT: Latest Vital Signs: Temperature 99.2 , Pulse 88 , B/P 133 /51 , Respiratory Rate 23 , O2 SAT 90 , Nasal Cannula, O2 Flow Rate 3.0 . Vital Sign Comment: EKG Rhythm: Sinus Rhythm Rhythm change?: N MD Notified?: - MD Response: Latest Elizabeth Fall Score: 35 Fall Risk: Medium Risk Safety Measures: Call light Within Reach, Bed Alarm Zone 1, Side Rails Side Rails x2, Bed position Low and Locked. Fall Precautions: Door Sign Report given to SIDNEY kramer. Noted glucose level is 612. Checked BS is Hi. notify Dr. Daniels and new order received. Endorsed incoming nurse.
--- NOTE | 2020-07-22 08:00 | NUR ---
NURSE NOTES: Received change of shift report from Florinda LITTLE. Pt opens eyes to voice/touch, does not follow commands, withdraws to pain, bilateral pupils 2mm and reactive to light. Orally intubated, ETT 7.5 at 24cm lipline with vent settings AC20, VT500, Peep 5, FIO2 100 with O2sat fluctuating from 80-88%. Bilateral rhonchi/rales on auscultation. NSR on case monitor, HR90 with bounding peripheral pulses. Pt has AV shunt on left upper arm with bruit/thrill. Right femoral TLC, patent/intact. Temp 101.7F axillary, extremities warm to touch. OGT with feeding Nepro infusing at goal rate of 30ml/hour and zero residual. Abdomen is round, soft, nontender to touch with active bowel sounds. Pt is anuric. Skin is intact. Bilateral soft wrist restraints are in place to prevent self-extubation since pt is noted to be impulsive, restless, reaching for ET tube. HOB at 30degrees, bed locked, in lowest position, three side rails up. Will continue to monitor pt and follow plan of care per MD orders and protocol.
--- NOTE | 2020-07-22 09:00 | NUR ---
NURSE NOTES: Dr. Falk is at the nurse's station. MD was updated on pt's current status and aware of AM labs. Order noted for Levemir and Novolog to control blood glucose. Still waiting for pharmacy to dispense insulin pens.
--- NOTE | 2020-07-22 09:10 | Hematology/Onc Progress Note ---
Assessment/Plan Assessment/Plan Assessment/Plan 1. Pancytopenia with hx anemia due to underlying chronic disease. Have reviewed prior workup, ferritin is >1000, though percent saturation Tsat <30, but not recommended for further iron, also with covid19++++ --> Continue to closely monitor. --> Transfuse if hgb <7 --> ferritin is >1000 --> give epogen, has been started 3x a week --> as per renal --> monitor for gi bleed, gi consulted --> hgb trend 7.8-->9.3->8.9->>11-->9.5->8.9 --> plt 42-->50-->65-->(3 --> smear has been reviewed --> hep and hiv neg 2. Leukopenia likely reactive process v infection v from meds --> hepatitis and hiv prior negative --> neutropenic precautions if ANC <1500 --> trending stable --> imaging reviewed and no hsm / cirrhosis noted --> wbc 2.7-->3.6->>>2->5 --> ANC goal >1500 3. End-stage renal disease, on hemodialysis three times a week. --> renal consulted --> continue hd 4. History of coronary artery disease. --> cards reviewed --> diuresis prn 5. History of anemia due to low B12, low iron --> b12 is currently within normal limits --> reobtain q6mo 6. Dizziness and unsteady gait 7. DVt ppsx with SCDs Greatly appreciate consultation and Selvin RN Subjective Constitutional: Denies: no symptoms, chills, fever, malaise, weakness, other HEENT: Denies: no symptoms, eye pain, blurred vision, tearing, double vision, ear pain, ear discharge, nose pain, nose congestion, throat pain, throat swelling, mouth pain, mouth swelling, other Cardiovascular: Denies: no symptoms, chest pain, edema, irregular heart rate, l ightheadedness, palpitations, syncope, other Respiratory: Denies: no symptoms, cough, shortness of breath, SOB with excertion, SOB at rest, sputum, wheezing, other Gastrointestinal/Abdominal: Denies: no symptoms, abdomen distended, abdominal pain, black stools, tarry stools, blood in stool, constipated, diarrhea, difficulty swallowing, nausea, poor appetite, poor fluid intake, rectal bleeding, vomiting, other Genitourinary: Denies: no symptoms, burning, discharge, frequency, flank pain, hematuria, incontinence, pain, urgency, other Neurologic/Psychiatric: Denies: no symptoms, anxiety, depressed, emotional problems, headache, numbness, paresthesia, pre-existing deficit, seizure, tingling, tremors, weakness, other Allergies: Coded Allergies: No Known Allergies (Unverified , 05/12/17) Subjective 07/19 meds noted, s/p hd, bp has improved, no bleeding, labs reviewed 07/20 labs are noted, no bleeding, meds reviewed, no major changes, hgb 9.5 07/22 remains in the icu, no bleeding, meds reviewed, on nc Objective Objective Current Medications Medications (Trade) Dose Ordered Sig/Toya Route PRN Reason Start Time Stop Time Status Last Admin Dose Admin Acetaminophen (Tylenol) 500 mg Q4HR PRN ORAL For Pain 07/17/20 00:00 08/16/20 00:00 07/21/20 09:01 Acetaminophen (Tylenol) 500 mg Q8H PRN ORAL FHMP 07/16/20 22:45 08/15/20 22:44 07/21/20 17:42 Albuterol Sulfate (Proventil MDI) 2 puff Q4H PRN INH Shortness of Breath 07/16/20 19:00 10/14/20 18:59 Azithromycin (Zithromax) 250 mg DAILY ORAL 07/19/20 09:00 07/26/20 08:59 07/21/20 09:00 Calcium Acetate (Phoslo) 1,334 mg TID ORAL 07/17/20 09:00 10/15/20 08:59 07/21/20 17:43 Ceftriaxone Sodium 1 gm/ Dextrose 55 ml @ 110 mls/hr Q24H IVPB 07/20/20 12:15 07/27/20 12:14 07/21/20 12:46 Chlorhexidine Gluconate (Yessi-Hex 2%) 1 applic DAILY@2000 TOPIC 07/21/20 20:00 10/19/20 19:59 07/21/20 20:17 Clonidine HCl (Catapres Tab) 0.1 mg Q4H PRN NG bp over 165 syst 07/21/20 12:00 10/14/20 22:44 Dexamethasone Sodium Phosphate (Decadron 10mg/ ml Inj) 6 mg DAILY IV 07/20/20 12:15 07/29/20 09:01 07/21/20 09:00 Dextrose (Dextrose 50%) 25 ml Q30M PRN IV Hypoglycemia 07/22/20 08:00 10/20/20 07:59 Dextrose (Dextrose 50%) 50 ml Q30M PRN IV Hypoglycemia 07/22/20 08:00 10/20/20 07:59 Diltiazem HCl (Cardizem Tab) 60 mg EVERY 6 HOURS NG 07/21/20 18:00 08/16/20 13:59 07/22/20 05:52 Docusate Sodium (Colace) 100 mg THREE TIMES A DAY NG 07/21/20 13:00 08/20/20 12:59 07/21/20 17:42 Haloperidol Lactate (Haldol) 5 mg Q6H PRN IM Agitation 07/17/20 17:30 08/31/20 17:29 07/18/20 21:34 Hydralazine HCl (Apresoline) 50 mg EVERY 8 HOURS NG 07/21/20 22:00 10/15/20 05:59 07/22/20 05:51 Insulin Aspart (NovoLOG) Q6HR SUBQ 07/22/20 08:15 10/20/20 11:29 Lorazepam (Ativan 2mg/ml 1ml) 1 mg Q4H PRN IV For Anxiety 07/20/20 22:15 07/27/20 22:14 07/22/20 06:47 Pantoprazole (Protonix) 40 mg EVERY 12 HOURS IVP 07/21/20 21:00 08/20/20 20:59 07/21/20 20:31 Quetiapine Fumarate (SEROqueL) 50 mg Q12HR ORAL 07/17/20 14:00 08/31/20 13:59 07/21/20 20:31 Last 24 Hour Vital Signs Date Time Temp Pulse Resp B/P (MAP) Pulse Ox O2 Delivery O2 Flow Rate FiO2 07/22/20 07:17 88 23 133/51 90 07/22/20 07:00 85 20 126/40 (68) 89 12/20/20 06:47 82 23 134/42 92 2020 06:00 89 21 144/42 (76) 94 20/20 05:52 89 142/44 2020 05:51 142/44 2020 05:00 89 25 139/48 (78) 93 20 04:00 99.2 85 20 132/41 (71) 93 07/22/20 04:00 84 07/22/20 04:00 100 07/22/20 03:08 83 20 100 07/22/20 03:00 87 21 136/47 (76) 94 07/22/20 02:52 84 18 136/47 94 07/22/20 02:22 88 18 142/52 94 07/22/20 02:00 84 19 142/52 (82) 94 07/22/20 01:00 88 20 135/46 (75) 95 07/22/20 00:22 97 131/72 20 00:00 84 07/22/20 00:00 98.9 86 20 135/45 (75) 96 07/22/20 00:00 100 20 23:00 89 20 141/57 (85) 96 07/21/20 22:52 97 25 100 07/21/20 22:27 91 30 140/74 93 20 22:00 90 21 141/53 (82) 97 19/20 21:57 98 17 151/57 98 20 21:51 151/57 07/21/20 21:00 90 19 148/48 (81) 96 19/20 20:00 100 20 20:00 103 19/20 20:00 99.5 96 24 146/50 (82) 97 19/20 19:30 103 21 137/50 (79) 98 19/20 19:16 91 22 100 07/21/20 19:00 84 21 136/42 (73) 99 07/21/20 18:30 85 24 136/43 (74) 99 19/20 18:00 143 24 127/57 (80) 98 12/19/20 17:46 150 23 151/71 19/20 17:44 150 158/71 1920 17:00 90 21 145/52 (83) 99 07/21/20 16:30 90 24 148/54 (85) 99 07/21/20 16:00 99.6 149 23 129/61 (83) 100 07/21/20 16:00 100 07/21/20 16:00 85 07/21/20 15:15 144 21 100 07/21/20 15:00 91 21 148/59 (88) 98 07/21/20 14:00 81 20 142/50 (80) 98 07/21/20 13:00 88 20 141/48 (79) 07/21/20 12:00 99.8 83 20 143/45 (77) 07/21/20 12:00 100 07/21/20 11:52 91 07/21/20 11:00 86 20 145/46 (79) 100 07/21/20 10:42 86 22 100 07/21/20 10:30 86 20 138/48 (78) 100 07/21/20 10:00 89 20 141/46 (77) 100 07/21/20 09:40 123 23 140/65 96 07/21/20 09:30 98 22 132/83 (99) 100 07/21/20 09:00 92 153/59 (90) 100 07/21/20 08:30 89 23 148/55 (86) 07/21/20 08:00 100 07/21/20 08:00 100.9 93 24 154/50 (84) 100 07/21/20 08:00 95 07/21/20 07:50 91 29 100 07/21/20 07:30 82 20 144/42 (76) 97 07/21/20 07:00 91 20 145/45 (78) 96 07/21/20 06:00 81 20 162/50 (87) 95 07/21/20 05:51 79 158/49 07/21/20 05:50 158/49 07/21/20 05:00 79 20 159/47 (84) 95 07/21/20 04:00 78 07/21/20 04:00 100.0 79 20 162/47 (85) 96 07/21/20 03:00 90 20 157/53 (87) 95 07/21/20 02:54 104 20 100 07/21/20 02:00 78 20 166/49 (88) 100 07/21/20 01:00 76 20 172/49 (90) 100 07/21/20 00:33 168/50 07/21/20 00:00 74 07/21/20 00:00 99.0 79 23 166/49 (88) 100 07/20/20 23:51 85 22 165/83 100 07/20/20 23:29 86 20 100 07/20/20 23:20 86 22 156/57 100 07/20/20 23:00 82 20 156/52 (86) 99 07/20/20 22:00 85 21 140/49 (79) 07/20/20 22:00 88 151/54 07/20/20 21:00 99 20 152/61 (91) 99 07/20/20 21:00 Mechanical Ventilator 07/20/20 20:45 99 20 163/61 (95) 99 07/20/20 20:00 98.0 97 20 137/56 (83) 100 07/20/20 18:34 69 20 99 Mechanical Ventilator 100 07/20/20 18:29 69 20 100 07/20/20 18:00 82/37 07/20/20 16:00 98.9 75 22 135/51 (79) 96 07/20/20 16:00 74 07/20/20 14:00 79 132/48 07/20/20 12:34 132/48 07/20/20 12:00 79 07/20/20 12:00 100.2 79 24 132/48 (76) 96 Intake and Output 07/21/20 07/22/20 19:00 07:00 Intake Total 495 ml 315 ml Balance 495 ml 315 ml IV Total 360 ml Tube Feeding 105 ml 315 ml Other 30 ml # Voids 1 # Bowel Movements 1 Labs Test 07/19/20 19:30 07/20/20 08:35 07/20/20 09:50 07/20/20 17:53 Arterial Blood pH 7.280 (7.350-7.450) 7.228 (7.350-7.450) 6.868 (7.350-7.450) Arterial Blood Partial Pressure CO2 56.8 mmHg (35.0-45.0) 68.7 mmHg (35.0-45.0) 195.9 mmHg (35.0-45.0) Arterial Blood Partial Pressure O2 70.1 mmHg (75.0-100.0) 107.5 mmHg (75.0-100.0) 70.5 mmHg (75.0-100.0) Arterial Blood HCO3 26.1 mmol/L (22.0-26.0) 28.0 mmol/L (22.0-26.0) 34.8 mmol/L (22.0-26.0) Arterial Blood Oxygen Saturation 90.9 % (95-100) 96.2 % (95-100) 81.5 % (95-100) Arterial Blood Base Excess -1.1 (-2-2) -0.5 (-2-2) -1.4 (-2-2) Faheem Test Positive Positive Positive White Blood Count 3.7 K/UL (4.8-10.8) Red Blood Count 2.77 M/UL (4.20-5.40) Hemoglobin 9.2 G/DL (12.0-16.0) Hematocrit 27.9 % (37.0-47.0) Mean Corpuscular Volume 101 FL (80-99) Mean Corpuscular Hemoglobin 33.1 PG (27.0-31.0) Mean Corpuscular Hemoglobin Concent 32.9 G/DL (32.0-36.0) Red Cell Distribution Width 16.2 % (11.6-14.8) Platelet Count 91 K/UL (150-450) Mean Platelet Volume 8.6 FL (6.5-10.1) Neutrophils (%) (Auto) % (45.0-75.0) Lymphocytes (%) (Auto) % (20.0-45.0) Monocytes (%) (Auto) % (1.0-10.0) Eosinophils (%) (Auto) % (0.0-3.0) Basophils (%) (Auto) % (0.0-2.0) Differential Total Cells Counted 100 Neutrophils % (Manual) 91 % (45-75) Lymphocytes % (Manual) 6 % (20-45) Monocytes % (Manual) 3 % (1-10) Eosinophils % (Manual) 0 % (0-3) Basophils % (Manual) 0 % (0-2) Band Neutrophils 0 % (0-8) Platelet Estimate Decreased Platelet Morphology Normal Anisocytosis 1+ Macrocytosis 1+ Sodium Level 143 MMOL/L (136-145) Potassium Level 5.8 MMOL/L (3.5-5.1) Chloride Level 103 MMOL/L (98-107) Carbon Dioxide Level 31 MMOL/L (21-32) Anion Gap 9 mmol/L (5-15) Blood Urea Nitrogen 102 mg/dL (7-18) Creatinine 7.3 MG/DL (0.55-1.30) Estimat Glomerular Filtration Rate 5.5 mL/min (>60) Glucose Level 419 MG/DL (74-106) Calcium Level 9.0 MG/DL (8.5-10.1) Total Bilirubin 1.5 MG/DL (0.2-1.0) Direct Bilirubin 0.9 MG/DL (0.0-0.3) Aspartate Amino Transf (AST/SGOT) 45 U/L (15-37) Alanine Aminotransferase (ALT/SGPT) 14 U/L (12-78) Alkaline Phosphatase 271 U/L (46-116) Total Protein 7.3 G/DL (6.4-8.2) Albumin 2.9 G/DL (3.4-5.0) Globulin 4.4 g/dL Albumin/Globulin Ratio 0.7 (1.0-2.7) Test 07/20/20 20:48 07/21/20 05:30 07/22/20 04:30 Arterial Blood pH 7.310 (7.350-7.450) Arterial Blood Partial Pressure CO2 53.8 mmHg (35.0-45.0) Arterial Blood Partial Pressure O2 49.4 mmHg (75.0-100.0) Arterial Blood HCO3 26.5 mmol/L (22.0-26.0) Arterial Blood Oxygen Saturation 82.4 % (95-100) Arterial Blood Base Excess -0.2 (-2-2) Faheem Test Positive White Blood Count 5.5 K/UL (4.8-10.8) 5.3 K/UL (4.8-10.8) Red Blood Count 2.61 M/UL (4.20-5.40) 2.64 M/UL (4.20-5.40) Hemoglobin 8.7 G/DL (12.0-16.0) 8.9 G/DL (12.0-16.0) Hematocrit 26.9 % (37.0-47.0) 28.5 % (37.0-47.0) Mean Corpuscular Volume 103 FL (80-99) 108 FL (80-99) Mean Corpuscular Hemoglobin 33.4 PG (27.0-31.0) 33.7 PG (27.0-31.0) Mean Corpuscular Hemoglobin Concent 32.5 G/DL (32.0-36.0) 31.2 G/DL (32.0-36.0) Red Cell Distribution Width 15.4 % (11.6-14.8) 15.6 % (11.6-14.8) Platelet Count 93 K/UL (150-450) 93 K/UL (150-450) Mean Platelet Volume 8.2 FL (6.5-10.1) 7.4 FL (6.5-10.1) Neutrophils (%) (Auto) % (45.0-75.0) % (45.0-75.0) Lymphocytes (%) (Auto) % (20.0-45.0) % (20.0-45.0) Monocytes (%) (Auto) % (1.0-10.0) % (1.0-10.0) Eosinophils (%) (Auto) % (0.0-3.0) % (0.0-3.0) Basophils (%) (Auto) % (0.0-2.0) % (0.0-2.0) Differential Total Cells Counted 100 100 Neutrophils % (Manual) 93 % (45-75) 94 % (45-75) Lymphocytes % (Manual) 2 % (20-45) 2 % (20-45) Monocytes % (Manual) 5 % (1-10) 4 % (1-10) Eosinophils % (Manual) 0 % (0-3) 0 % (0-3) Basophils % (Manual) 0 % (0-2) 0 % (0-2) Band Neutrophils 0 % (0-8) 0 % (0-8) Platelet Estimate Decreased Decreased Platelet Morphology Normal Normal Hypochromasia 1+ 1+ Anisocytosis 1+ 1+ Macrocytosis 1+ 1+ Sodium Level 141 MMOL/L (136-145) 140 MMOL/L (136-145) Potassium Level 4.2 MMOL/L (3.5-5.1) 4.9 MMOL/L (3.5-5.1) Chloride Level 100 MMOL/L (98-107) 100 MMOL/L (98-107) Carbon Dioxide Level 27 MMOL/L (21-32) 27 MMOL/L (21-32) Anion Gap 14 mmol/L (5-15) 13 mmol/L (5-15) Blood Urea Nitrogen 65 mg/dL (7-18) 104 mg/dL (7-18) Creatinine 5.1 MG/DL (0.55-1.30) 7.0 MG/DL (0.55-1.30) Estimat Glomerular Filtration Rate 8.3 mL/min (>60) 5.8 mL/min (>60) Glucose Level 328 MG/DL (74-106) 612 MG/DL (74-106) Calcium Level 8.4 MG/DL (8.5-10.1) 8.1 MG/DL (8.5-10.1) Polychromasia 1+ Phosphorus Level 4.0 MG/DL (2.5-4.9) Magnesium Level 2.3 MG/DL (1.8-2.4) Total Bilirubin 1.2 MG/DL (0.2-1.0) Direct Bilirubin 0.6 MG/DL (0.0-0.3) Aspartate Amino Transf (AST/SGOT) 30 U/L (15-37) Alanine Aminotransferase (ALT/SGPT) 13 U/L (12-78) Alkaline Phosphatase 211 U/L (46-116) Troponin I 0.834 ng/mL (0.000-0.056) C-Reactive Protein, Quantitative 21.9 mg/dL (0.00-0.90) Total Protein 6.3 G/DL (6.4-8.2) Albumin 2.3 G/DL (3.4-5.0) Globulin 4.0 g/dL Albumin/Globulin Ratio 0.6 (1.0-2.7) Height (Feet): 5 Height (Inches): 4.00 Weight (Pounds): 180 Objective Physical Exam General Appearance: alert, obese, Chronically Ill Neck: full range of motion Respiratory: wheezing Cardiovascular: edema Gastrointestinal: normal inspection, soft Neurologic: alert, barrel finisher III-XII nml as tested Psychiatric: normal inspection, judgement/insight normal Skin: other Carl Daniels MD Jul 22, 2020 09:10
[2020-07-22] MEDS: dexAMETHasone 10mg/ml Inj IV SCH (09:28)
[2020-07-22] MEDS: Docusate 100mg/10ml Liq NG SCH ×3 (09:28→17:41)
[2020-07-22] MEDS: Azithromycin 250mg tab ORAL SCH (09:28)
[2020-07-22] MEDS: Pantoprazole Inj IVP SCH ×2 (09:28→20:43)
[2020-07-22] MEDS: NovoLOG Insulin Flexpen SUBQ SCH ×3 (10:11→17:39)
[2020-07-22] MEDS: Levemir Flexpen SUBQ SCH ×2 (10:12→21:07)
[2020-07-22] MEDS: Acetaminophen 500mg (ES) tab ORAL PRN (10:14)
--- NOTE | 2020-07-22 10:15 | NUR ---
NURSE NOTES: AM meds were administered. Tylenol was given for Temp 101.7F axillary. Cooling measures also in place, NGT flushed with cold water. Oral care was done, pt suctioned, output of thick/yellowish wood secretions. Pt was repositioned for comfort.
--- NOTE | 2020-07-22 10:28 | Pulmonology Progress Note ---
Subjective ROS Limited/Unobtainable: Yes Interval Events: seen in ICU; remains intubated Constitutional: Reports: no symptoms; Denies: fever HEENT: Repors: no symptoms Respiratory: Reports: no symptoms Cardiovascular: Reports: no symptoms Gastrointestinal/Abdominal: Reports: no symptoms Genitourinary: Reports: no symptoms Allergies: Coded Allergies: No Known Allergies (Unverified , 05/12/17) Objective Last 24 Hour Vital Signs Date Time Temp Pulse Resp B/P (MAP) Pulse Ox O2 Delivery O2 Flow Rate FiO2 07/22/20 07:19 90 23 100 07/22/20 07:17 88 23 133/51 90 07/22/20 07:00 85 20 126/40 (68) 89 07/22/20 06:47 82 23 134/42 92 07/22/20 06:00 89 21 144/42 (76) 94 07/22/20 05:52 89 142/44 07/22/20 05:51 142/44 07/22/20 05:00 89 25 139/48 (78) 93 07/22/20 04:00 99.2 85 20 132/41 (71) 93 07/22/20 04:00 84 07/22/20 04:00 100 07/22/20 03:08 83 20 100 07/22/20 03:00 87 21 136/47 (76) 94 07/22/20 02:52 84 18 136/47 94 07/22/20 02:22 88 18 142/52 94 07/22/20 02:00 84 19 142/52 (82) 94 07/22/20 01:00 88 20 135/46 (75) 95 07/22/20 00:22 97 131/72 07/22/20 00:00 84 07/22/20 00:00 98.9 86 20 135/45 (75) 96 07/22/20 00:00 100 07/21/20 23:00 89 20 141/57 (85) 96 07/21/20 22:52 97 25 100 07/21/20 22:27 91 30 140/74 93 07/21/20 22:00 90 21 141/53 (82) 97 07/21/20 21:57 98 17 151/57 98 07/21/20 21:51 151/57 07/21/20 21:00 90 19 148/48 (81) 96 07/21/20 20:00 100 07/21/20 20:00 103 07/21/20 20:00 99.5 96 24 146/50 (82) 97 07/21/20 19:30 103 21 137/50 (79) 98 07/21/20 19:16 91 22 100 07/21/20 19:00 84 21 136/42 (73) 99 07/21/20 18:30 85 24 136/43 (74) 99 07/21/20 18:00 143 24 127/57 (80) 98 07/21/20 17:46 150 23 151/71 07/21/20 17:44 150 158/71 07/21/20 17:00 90 21 145/52 (83) 99 07/21/20 16:30 90 24 148/54 (85) 99 07/21/20 16:00 99.6 149 23 129/61 (83) 100 07/21/20 16:00 100 07/21/20 16:00 85 07/21/20 15:15 144 21 100 07/21/20 15:00 91 21 148/59 (88) 98 07/21/20 14:00 81 20 142/50 (80) 98 07/21/20 13:00 88 20 141/48 (79) 07/21/20 12:00 99.8 83 20 143/45 (77) 07/21/20 12:00 100 07/21/20 11:52 91 07/21/20 11:00 86 20 145/46 (79) 100 07/21/20 10:42 86 22 100 07/21/20 10:30 86 20 138/48 (78) 100 Intake and Output 07/21/20 07/22/20 19:00 07:00 Intake Total 495 ml 315 ml Balance 495 ml 315 ml IV Total 360 ml Tube Feeding 105 ml 315 ml Other 30 ml # Voids 1 # Bowel Movements 1 General Appearance: WD/WN, no acute distress, other - intubation HEENT: normocephalic Respiratory: chest wall non-tender, crackles/rales Cardiovascular: normal rate, regular rhythm Laboratory Tests 07/22/20 04:30: White Blood Count 5.3, Red Blood Count 2.64L, Hemoglobin 8.9L, Hematocrit 28.5L, Mean Corpuscular Volume 108H, Mean Corpuscular Hemoglobin 33.7H, Mean Corpuscular Hemoglobin Concent 31.2L, Red Cell Distribution Width 15.6H, Plate let Count 93L, Mean Platelet Volume 7.4, Neutrophils (%) (Auto) , Lymphocytes (%) (Auto) , Monocytes (%) (Auto) , Eosinophils (%) (Auto) , Basophils (%) (Auto) , Differential Total Cells Counted 100, Neutrophils % (Manual) 94H, Lymphocytes % (Manual) 2L, Monocytes % (Manual) 4, Eosinophils % (Manual) 0, Basophils % (Manual) 0, Band Neutrophils 0, Platelet Estimate DecreasedL, Platelet Morphology Normal, Polychromasia 1+, Hypochromasia 1+, Anisocytosis 1+, Macrocytosis 1+, Sodium Level 140, Potassium Level 4.9, Chloride Level 100, Carbon Dioxide Level 27, Anion Gap 13, Blood Urea Nitrogen 104H, Creatinine 7.0H , Estimat Glomerular Filtration Rate 5.8, Glucose Level 612#*H, Calcium Level 8.1L, Phosphorus Level 4.0, Magnesium Level 2.3, Total Bilirubin 1.2H, Direct Bilirubin 0.6H, Aspartate Amino Transf (AST/SGOT) 30, Alanine Aminotransferase (ALT/SGPT) 13, Alkaline Phosphatase 211H, Troponin I 0.834H, C-Reactive Protein, Quantitative 21.9H, Pro-B-Type Natriuretic Peptide [Pending], Total Protein 6.3L , Albumin 2.3L, Globulin 4.0, Albumin/Globulin Ratio 0.6L 07/22/20 09:46: Arterial Blood pH 7.306L, Arterial Blood Partial Pressure CO2 51.7H, Arterial Blood Partial Pressure O2 44.4*L, Arterial Blood HCO3 25.2, Arterial Blood Oxygen Saturation 72.8*L, Arterial Blood Base Excess -1.4, Faheem Test Positive Current Medications Medications (Trade) Dose Ordered Sig/Toya Route PRN Reason Start Time Stop Time Status Last Admin Dose Admin Acetaminophen (Tylenol) 500 mg Q4HR PRN ORAL For Pain 07/17/20 00:00 08/16/20 00:00 07/22/20 10:14 Acetaminophen (Tylenol) 500 mg Q8H PRN ORAL FHMP 07/16/20 22:45 08/15/20 22:44 07/21/20 17:42 Albuterol Sulfate (Proventil MDI) 2 puff Q4H PRN INH Shortness of Breath 07/16/20 19:00 10/14/20 18:59 Azithromycin (Zithromax) 250 mg DAILY ORAL 07/19/20 09:00 07/26/20 08:59 07/22/20 09:28 Calcium Acetate (Phoslo) 1,334 mg TID ORAL 07/17/20 09:00 10/15/20 08:59 07/22/20 09:28 Ceftriaxone Sodium 1 gm/ Dextrose 55 ml @ 110 mls/hr Q24H IVPB 07/20/20 12:15 07/27/20 12:14 07/21/20 12:46 Chlorhexidine Gluconate (Yessi-Hex 2%) 1 applic DAILY@2000 TOPIC 07/21/20 20:00 10/19/20 19:59 07/21/20 20:17 Clonidine HCl (Catapres Tab) 0.1 mg Q4H PRN NG bp over 165 syst 07/21/20 12:00 10/14/20 22:44 Dexamethasone Sodium Phosphate (Decadron 10mg/ ml Inj) 6 mg DAILY IV 07/20/20 12:15 07/29/20 09:01 07/22/20 09:28 Dextrose (Dextrose 50%) 25 ml Q30M PRN IV Hypoglycemia 07/22/20 08:00 10/20/20 07:59 Dextrose (Dextrose 50%) 50 ml Q30M PRN IV Hypoglycemia 07/22/20 08:00 10/20/20 07:59 Diltiazem HCl (Cardizem Tab) 60 mg EVERY 6 HOURS NG 07/21/20 18:00 08/16/20 13:59 07/22/20 05:52 Docusate Sodium (Colace) 100 mg THREE TIMES A DAY NG 07/21/20 13:00 08/20/20 12:59 07/22/20 09:28 Haloperidol Lactate (Haldol) 5 mg Q6H PRN IM Agitation 07/17/20 17:30 08/31/20 17:29 07/18/20 21:34 Hydralazine HCl (Apresoline) 50 mg EVERY 8 HOURS NG 07/21/20 22:00 10/15/20 05:59 07/22/20 05:51 Insulin Aspart (NovoLOG) Q6HR SUBQ 07/22/20 08:15 10/20/20 11:29 07/22/20 10:11 Insulin Detemir (Levemir) 15 units Q12HR SUBQ 07/22/20 10:00 10/20/20 09:59 07/22/20 10:12 Lorazepam (Ativan 2mg/ml 1ml) 1 mg Q4H PRN IV For Anxiety 07/20/20 22:15 07/27/20 22:14 07/22/20 06:47 Pantoprazole (Protonix) 40 mg EVERY 12 HOURS IVP 07/21/20 21:00 08/20/20 20:59 07/22/20 09:28 Quetiapine Fumarate (SEROqueL) 50 mg Q12HR ORAL 07/17/20 14:00 08/31/20 13:59 07/22/20 09:28 Assessment/Plan Assessment/Plan Assessment/Plan 1. COVID-19 pneumonia. 2. COPD exacerbation. 3. Pneumonia - CXR shows b/l opacities - she received decadron once which has now been discontinued 4. Hypertensive emergency. - BP control per cardiology 5. Leukocytosis.; improving 6. Anemia. 7. Hyponatremia.; resolved 8. Hyperkalemia.; resolved 9. Hypochloridemia.; resolved 10. Hyperglycemia. 11. ESRD, on dialysis. 12. Respiratory failure; now intubated PLAN Continue O2; currently 100% Vent; AC mode Will increase PEEP to 10 Decrease rate to 16 Steroids Defer Remdesivir choice to ID; renal failure precludes use Levy Law MD, MD Jul 22, 2020 10:28
--- NOTE | 2020-07-22 11:00 | NUR ---
NURSE NOTES: Order noted for hemodialysis treatment to be done today. [facility] nephrology was contacted and message was left with Lynda to schedule HD for today.
[2020-07-22] MEDS ORDERED: NovoLOG Insulin Flexpen SUBQ SCH (11:30)
--- NOTE | 2020-07-22 11:50 | General Progress Note ---
Subjective Allergies: Coded Allergies: No Known Allergies (Unverified , 05/12/17) Objective Last 24 Hour Vital Signs Date Time Temp Pulse Resp B/P (MAP) Pulse Ox O2 Delivery O2 Flow Rate FiO2 07/22/20 11:00 99.5 91 23 127/43 (71) 07/22/20 10:44 99.5 07/22/20 10:00 85 23 123/46 (71) 78 07/22/20 09:00 90 21 142/44 (76) 89 07/22/20 08:00 101.7 87 23 131/48 (75) 89 07/22/20 08:00 100 07/22/20 08:00 87 07/22/20 07:19 90 23 100 07/22/20 07:17 88 23 133/51 90 07/22/20 07:00 85 20 126/40 (68) 89 07/22/20 06:47 82 23 134/42 92 07/22/20 06:00 89 21 144/42 (76) 94 07/22/20 05:52 89 142/44 07/22/20 05:51 142/44 07/22/20 05:00 89 25 139/48 (78) 93 07/22/20 04:00 99.2 85 20 132/41 (71) 93 07/22/20 04:00 84 07/22/20 04:00 100 07/22/20 03:08 83 20 100 07/22/20 03:00 87 21 136/47 (76) 94 07/22/20 02:52 84 18 136/47 94 07/22/20 02:22 88 18 142/52 94 07/22/20 02:00 84 19 142/52 (82) 94 07/22/20 01:00 88 20 135/46 (75) 95 07/22/20 00:22 97 131/72 07/22/20 00:00 84 07/22/20 00:00 98.9 86 20 135/45 (75) 96 07/22/20 00:00 100 07/21/20 23:00 89 20 141/57 (85) 96 07/21/20 22:52 97 25 100 07/21/20 22:27 91 30 140/74 93 07/21/20 22:00 90 21 141/53 (82) 97 07/21/20 21:57 98 17 151/57 98 07/21/20 21:51 151/57 07/21/20 21:00 90 19 148/48 (81) 96 07/21/20 20:00 100 07/21/20 20:00 103 07/21/20 20:00 99.5 96 24 146/50 (82) 97 07/21/20 19:30 103 21 137/50 (79) 98 07/21/20 19:16 91 22 100 07/21/20 19:00 84 21 136/42 (73) 99 07/21/20 18:30 85 24 136/43 (74) 99 07/21/20 18:00 143 24 127/57 (80) 98 07/21/20 17:46 150 23 151/71 07/21/20 17:44 150 158/71 07/21/20 17:00 90 21 145/52 (83) 99 07/21/20 16:30 90 24 148/54 (85) 99 07/21/20 16:00 99.6 149 23 129/61 (83) 100 07/21/20 16:00 100 07/21/20 16:00 85 07/21/20 15:15 144 21 100 07/21/20 15:00 91 21 148/59 (88) 98 07/21/20 14:00 81 20 142/50 (80) 98 07/21/20 13:00 88 20 141/48 (79) 07/21/20 12:00 99.8 83 20 143/45 (77) 07/21/20 12:00 100 07/21/20 11:52 91 Intake and Output 07/21/20 07/22/20 19:00 07:00 Intake Total 495 ml 315 ml Balance 495 ml 315 ml IV Total 360 ml Tube Feeding 105 ml 315 ml Other 30 ml # Voids 1 # Bowel Movements 1 Laboratory Tests 07/22/20 04:30: White Blood Count 5.3, Red Blood Count 2.64L, Hemoglobin 8.9L, Hematocrit 28.5L, Mean Corpuscular Volume 108H, Mean Corpuscular Hemoglobin 33.7H, Mean Corpuscular Hemoglobin Concent 31.2L, Red Cell Distribution Width 15.6H, Андрей telet Count 93L, Mean Platelet Volume 7.4, Neutrophils (%) (Auto) , Lymphocytes (%) (Auto) , Monocytes (%) (Auto) , Eosinophils (%) (Auto) , Basophils (%) (Auto) , Differential Total Cells Counted 100, Neutrophils % (Manual) 94H, Lymphocytes % (Manual) 2L, Monocytes % (Manual) 4, Eosinophils % (Manual) 0, Basophils % (Manual) 0, Band Neutrophils 0, Platelet Estimate DecreasedL, Platelet Morphology Normal, Polychromasia 1+, Hypochromasia 1+, Anisocytosis 1+, Macrocytosis 1+, Sodium Level 140, Potassium Level 4.9, Chloride Level 100, Carbon Dioxide Level 27, Anion Gap 13, Blood Urea Nitrogen 104H, Creatinine 7.0H , Estimat Glomerular Filtration Rate 5.8, Glucose Level 612#*H, Calcium Level 8.1L, Phosphorus Level 4.0, Magnesium Level 2.3, Total Bilirubin 1.2H, Direct Bilirubin 0.6H, Aspartate Amino Transf (AST/SGOT) 30, Alanine Aminotransferase (ALT/SGPT) 13, Alkaline Phosphatase 211H, Troponin I 0.834H, C-Reactive Protein, Quantitative 21.9H, Pro-B-Type Natriuretic Peptide [Pending], Total Protein 6.3L , Albumin 2.3L, Globulin 4.0, Albumin/Globulin Ratio 0.6L 07/22/20 09:46: Arterial Blood pH 7.306L, Arterial Blood Partial Pressure CO2 51.7H, Arterial Blood Partial Pressure O2 44.4*L, Arterial Blood HCO3 25.2, Arterial Blood Oxygen Saturation 72.8*L, Arterial Blood Base Excess -1.4, Faheem Test Positive Height (Feet): 5 Height (Inches): 4.00 Weight (Pounds): 180 Assessment/Plan Status: deteriorating Assessment/Plan: Assessment - Recent GI bleed, resolved - anemia - s/p multiple endoscopies and colonoscopies this year - resp failure - COPD - COVID PNA - DM - Poor Px Recommendations - PPI - OGT feeds - follow labs - HD - No plans for endoscopy Thank you MD Horacio Michael Payman MD Jul 22, 2020 11:50
--- NOTE | 2020-07-22 12:02 | Infectious Diseases Prog Note ---
Assessment/Plan Assessment/Plan IMPRESSION: COVID-19 disease, Altered mental status and encephalopathy, End-stage renal disease on hemodialysis, COPD, Asthma, Hypertension, Pancytopenia, Diabetes mellitus with hyperglycemia, Systolic heart failure, Aortic stenosis. Hypercapnic, hypoxemic respiratory failure RECOMMENDATION: Continue dexamethasone. Sputum culture Continue Zithromax Rocephin We will follow up the cultures. Subjective ROS Limited/Unobtainable: Yes Constitutional: Reports: fever, other - Hy=427.7 Allergies: Coded Allergies: No Known Allergies (Unverified , 05/12/17) Objective Last 24 Hour Vital Signs Date Time Temp Pulse Resp B/P (MAP) Pulse Ox O2 Delivery O2 Flow Rate FiO2 07/22/20 11:00 99.5 91 23 127/43 (71) 07/22/20 10:44 99.5 07/22/20 10:00 85 23 123/46 (71) 78 07/22/20 09:00 90 21 142/44 (76) 89 07/22/20 08:00 101.7 87 23 131/48 (75) 89 07/22/20 08:00 100 07/22/20 08:00 87 07/22/20 07:19 90 23 100 07/22/20 07:17 88 23 133/51 90 07/22/20 07:00 85 20 126/40 (68) 89 07/22/20 06:47 82 23 134/42 92 07/22/20 06:00 89 21 144/42 (76) 94 07/22/20 05:52 89 142/44 07/22/20 05:51 142/44 07/22/20 05:00 89 25 139/48 (78) 93 07/22/20 04:00 99.2 85 20 132/41 (71) 93 07/22/20 04:00 84 07/22/20 04:00 100 07/22/20 03:08 83 20 100 07/22/20 03:00 87 21 136/47 (76) 94 07/22/20 02:52 84 18 136/47 94 07/22/20 02:22 88 18 142/52 94 07/22/20 02:00 84 19 142/52 (82) 94 07/22/20 01:00 88 20 135/46 (75) 95 07/22/20 00:22 97 131/72 07/22/20 00:00 84 07/22/20 00:00 98.9 86 20 135/45 (75) 96 07/22/20 00:00 100 07/21/20 23:00 89 20 141/57 (85) 96 07/21/20 22:52 97 25 100 07/21/20 22:27 91 30 140/74 93 07/21/20 22:00 90 21 141/53 (82) 97 07/21/20 21:57 98 17 151/57 98 07/21/20 21:51 151/57 07/21/20 21:00 90 19 148/48 (81) 96 07/21/20 20:00 100 07/21/20 20:00 103 07/21/20 20:00 99.5 96 24 146/50 (82) 97 07/21/20 19:30 103 21 137/50 (79) 98 07/21/20 19:16 91 22 100 07/21/20 19:00 84 21 136/42 (73) 99 07/21/20 18:30 85 24 136/43 (74) 99 07/21/20 18:00 143 24 127/57 (80) 98 07/21/20 17:46 150 23 151/71 07/21/20 17:44 150 158/71 07/21/20 17:00 90 21 145/52 (83) 99 07/21/20 16:30 90 24 148/54 (85) 99 07/21/20 16:00 99.6 149 23 129/61 (83) 100 07/21/20 16:00 100 07/21/20 16:00 85 07/21/20 15:15 144 21 100 07/21/20 15:00 91 21 148/59 (88) 98 07/21/20 14:00 81 20 142/50 (80) 98 07/21/20 13:00 88 20 141/48 (79) 07/21/20 12:00 99.8 83 20 143/45 (77) 07/21/20 12:00 100 Height (Feet): 5 Height (Inches): 4.00 Weight (Pounds): 180 HEENT: mucous membranes moist, other - orally intubated Respiratory/Chest: other - on ventilator, [id number]=432% Cardiovascular: normal rate Abdomen: soft, non tender Extremities: no edema Neurologic/Psychiatric: unresponsiveness Laboratory Tests Test 07/22/20 04:30 07/22/20 09:46 White Blood Count 5.3 K/UL (4.8-10.8) Red Blood Count 2.64 M/UL (4.20-5.40) L Hemoglobin 8.9 G/DL (12.0-16.0) L Hematocrit 28.5 % (37.0-47.0) L Mean Corpuscular Volume 108 FL (80-99) H Mean Corpuscular Hemoglobin 33.7 PG (27.0-31.0) H Mean Corpuscular Hemoglobin Concent 31.2 G/DL (32.0-36.0) L Red Cell Distribution Width 15.6 % (11.6-14.8) H Platelet Count 93 K/UL (150-450) L Mean Platelet Volume 7.4 FL (6.5-10.1) Neutrophils (%) (Auto) % (45.0-75.0) Lymphocytes (%) (Auto) % (20.0-45.0) Monocytes (%) (Auto) % (1.0-10.0) Eosinophils (%) (Auto) % (0.0-3.0) Basophils (%) (Auto) % (0.0-2.0) Differential Total Cells Counted 100 Neutrophils % (Manual) 94 % (45-75) H Lymphocytes % (Manual) 2 % (20-45) L Monocytes % (Manual) 4 % (1-10) Eosinophils % (Manual) 0 % (0-3) Basophils % (Manual) 0 % (0-2) Band Neutrophils 0 % (0-8) Platelet Estimate Decreased L Platelet Morphology Normal Polychromasia 1+ Hypochromasia 1+ Anisocytosis 1+ Macrocytosis 1+ Sodium Level 140 MMOL/L (136-145) Potassium Level 4.9 MMOL/L (3.5-5.1) Chloride Level 100 MMOL/L (98-107) Carbon Dioxide Level 27 MMOL/L (21-32) Anion Gap 13 mmol/L (5-15) Blood Urea Nitrogen 104 mg/dL (7-18) H Creatinine 7.0 MG/DL (0.55-1.30) H Estimat Glomerular Filtration Rate 5.8 mL/min (>60) Glucose Level 612 MG/DL (74-106) #*H Calcium Level 8.1 MG/DL (8.5-10.1) L Phosphorus Level 4.0 MG/DL (2.5-4.9) Magnesium Level 2.3 MG/DL (1.8-2.4) Total Bilirubin 1.2 MG/DL (0.2-1.0) H Direct Bilirubin 0.6 MG/DL (0.0-0.3) H Aspartate Amino Transf (AST/SGOT) 30 U/L (15-37) Alanine Aminotransferase (ALT/SGPT) 13 U/L (12-78) Alkaline Phosphatase 211 U/L (46-116) H Troponin I 0.834 ng/mL (0.000-0.056) C-Reactive Protein, Quantitative 21.9 mg/dL (0.00-0.90) H Pro-B-Type Natriuretic Peptide Pending Total Protein 6.3 G/DL (6.4-8.2) L Albumin 2.3 G/DL (3.4-5.0) L Globulin 4.0 g/dL Albumin/Globulin Ratio 0.6 (1.0-2.7) L Arterial Blood pH 7.306 (7.350-7.450) Arterial Blood Partial Pressure CO2 51.7 mmHg (35.0-45.0) H Arterial Blood Partial Pressure O2 44.4 mmHg (75.0-100.0) Arterial Blood HCO3 25.2 mmol/L (22.0-26.0) Arterial Blood Oxygen Saturation 72.8 % (95-100) *L Arterial Blood Base Excess -1.4 (-2-2) Faheem Test Positive Current Medications Medications (Trade) Dose Ordered Sig/Toya Route PRN Reason Start Time Stop Time Status Last Admin Dose Admin Acetaminophen (Tylenol) 500 mg Q4HR PRN ORAL For Pain 07/17/20 00:00 08/16/20 00:00 07/22/20 10:14 Acetaminophen (Tylenol) 500 mg Q8H PRN ORAL FHMP 07/16/20 22:45 08/15/20 22:44 07/21/20 17:42 Albuterol Sulfate (Proventil MDI) 2 puff Q4H PRN INH Shortness of Breath 07/16/20 19:00 3/14/21 18:59 Azithromycin (Zithromax) 250 mg DAILY ORAL 07/19/20 09:00 07/26/20 08:59 07/22/20 09:28 Calcium Acetate (Phoslo) 1,334 mg TID ORAL 07/17/20 09:00 10/15/20 08:59 07/22/20 09:28 Ceftriaxone Sodium 1 gm/ Dextrose 55 ml @ 110 mls/hr Q24H IVPB 07/20/20 12:15 07/27/20 12:14 07/21/20 12:46 Chlorhexidine Gluconate (Yessi-Hex 2%) 1 applic DAILY@2000 TOPIC 07/21/20 20:00 10/19/20 19:59 07/21/20 20:17 Clonidine HCl (Catapres Tab) 0.1 mg Q4H PRN NG bp over 165 syst 07/21/20 12:00 10/14/20 22:44 Dexamethasone Sodium Phosphate (Decadron 10mg/ ml Inj) 6 mg DAILY IV 07/20/20 12:15 07/29/20 09:01 07/22/20 09:28 Dextrose (Dextrose 50%) 25 ml Q30M PRN IV Hypoglycemia 07/22/20 08:00 10/20/20 07:59 Dextrose (Dextrose 50%) 50 ml Q30M PRN IV Hypoglycemia 07/22/20 08:00 10/20/20 07:59 Diltiazem HCl (Cardizem Tab) 60 mg EVERY 6 HOURS NG 07/21/20 18:00 08/16/20 13:59 07/22/20 05:52 Docusate Sodium (Colace) 100 mg THREE TIMES A DAY NG 07/21/20 13:00 08/20/20 12:59 07/22/20 09:28 Haloperidol Lactate (Haldol) 5 mg Q6H PRN IM Agitation 07/17/20 17:30 08/31/20 17:29 07/18/20 21:34 Hydralazine HCl (Apresoline) 50 mg EVERY 8 HOURS NG 07/21/20 22:00 10/15/20 05:59 07/22/20 05:51 Insulin Aspart (NovoLOG) Q6HR SUBQ 07/22/20 08:15 10/20/20 11:29 07/22/20 10:11 Insulin Detemir (Levemir) 15 units Q12HR SUBQ 07/22/20 10:00 10/20/20 09:59 07/22/20 10:12 Lorazepam (Ativan 2mg/ml 1ml) 1 mg Q4H PRN IV For Anxiety 07/20/20 22:15 07/27/20 22:14 07/22/20 06:47 Pantoprazole (Protonix) 40 mg EVERY 12 HOURS IVP 07/21/20 21:00 08/20/20 20:59 07/22/20 09:28 Quetiapine Fumarate (SEROqueL) 50 mg Q12HR ORAL 07/17/20 14:00 08/31/20 13:59 07/22/20 09:28 Kalin Briseno MD Jul 22, 2020 12:02
--- NOTE | 2020-07-22 12:15 | NUR ---
NURSE NOTES: Temp is now 99.5F post Tylenol administration. Accucheck resulted 540, Novolog and Levemir were just added to regimen this morning. Novolog was administered 14units per sliding scale and Levemir 15units as ordered. Order noted by Dr Allen to titrate/increase peep to 10, and AC down to 16 post ABG results. RT notified.
[2020-07-22] MEDS: cefTRIAXone 1 GM in D5W 55 ML IVPB SCH (13:00)
--- NOTE | 2020-07-22 14:00 | NUR ---
NURSE NOTES: Pt is responding well to increased/titrated peep of 10, O2Sat is maintaining above 90. VS remain stable. Pt is also calmer now post scheduled administration of Seroquel. Pt was suctioned and repositioned for comfort.
--- NOTE | 2020-07-22 14:43 | Nephrology Progress Note ---
Assessment/Plan Problem List: (1) Hypertensive kidney disease (2) ESRD (end stage renal disease) (3) Hyperkalemia (4) Suspected 2019 novel coronavirus infection Assessment 70-year-old female with end-stage renal disease Presented with volume overload and hyperkalemia Suspected COVID-19 virus infection Hypertensive emergency Diabetes mellitus CHF Plan July 22: Patient on ventilator requiring positive end expiratory pressure. Labs reviewed. Blood sugar elevated. Levemir insulin ordered. Dialysis today. Continue per consultants. July 21: Patient now in ICU. Intubated on ventilator. Was dialyzed. Blood pressure well maintained. Has NG tube. Will start medication through NG tube and start feeding. Continue per consultants. Hemodialysis as needed. July 20: Patient seen and examined. Discussed with RN. Remains encephalopathic. Poor ABG results. Patient at high risk at this stage. We will transfer patients to ICU for possible airway support. Patient due for dialysis today. Hyperkalemia probably secondary to acidosis. Will arrange for NG tube insertion and give medication through NG tube. July 19: Mental status appears slightly improved. Was dialyzed 2 days in a row. Blood pressure medication adjusted. Next dialysis tomorrow. Continue per consultants. July 18: Patient encephalopathic, was dialyzed yesterday and had 3 L removed. Will order dialysis again today. Continue per ID. Blood pressure medication adjusted. July 17: Stat hemodialysis ordered. Kayexalate for high potassium. Pulmonary support with oxygen or BiPAP as needed Blood pressure support with proper parameters Per orders Subjective ROS Limited/Unobtainable: Yes Objective Objective Last 24 Hour Vital Signs Date Time Temp Pulse Resp B/P (MAP) Pulse Ox O2 Delivery O2 Flow Rate FiO2 07/22/20 14:00 88 18 130/42 (71) 92 07/22/20 13:00 87 20 126/42 (70) 78 07/22/20 12:00 88 07/22/20 12:00 89 20 125/41 (69) 78 07/22/20 12:00 100 07/22/20 11:00 99.5 91 23 127/43 (71) 90 07/22/20 10:44 99.5 07/22/20 10:00 85 23 123/46 (71) 90 07/22/20 09:00 90 21 142/44 (76) 89 07/22/20 08:00 101.7 87 23 131/48 (75) 89 20 08:00 100 20 08:00 87 07/22/20 07:19 90 23 100 07/22/20 07:17 88 23 133/51 90 20 07:00 85 20 126/40 (68) 89 20 06:47 82 23 134/42 92 2020 06:00 89 21 144/42 (76) 94 20 05:52 89 142/44 20 05:51 142/44 20 05:00 89 25 139/48 (78) 93 07/22/20 04:00 99.2 85 20 132/41 (71) 93 07/22/20 04:00 84 07/22/20 04:00 100 07/22/20 03:08 83 20 100 07/22/20 03:00 87 21 136/47 (76) 94 07/22/20 02:52 84 18 136/47 94 07/22/20 02:22 88 18 142/52 94 07/22/20 02:00 84 19 142/52 (82) 94 07/22/20 01:00 88 20 135/46 (75) 95 20 00:22 97 131/72 20 00:00 84 07/22/20 00:00 98.9 86 20 135/45 (75) 96 20 00:00 100 20 23:00 89 20 141/57 (85) 96 20 22:52 97 25 100 20 22:27 91 30 140/74 93 20 22:00 90 21 141/53 (82) 97 1920 21:57 98 17 151/57 98 19/20 21:51 151/57 20 21:00 90 19 148/48 (81) 96 07/21/20 20:00 100 07/21/20 20:00 103 07/21/20 20:00 99.5 96 24 146/50 (82) 97 07/21/20 19:30 103 21 137/50 (79) 98 20 19:16 91 22 100 20 19:00 84 21 136/42 (73) 99 07/21/20 18:30 85 24 136/43 (74) 99 07/21/20 18:00 143 24 127/57 (80) 98 07/21/20 17:46 150 23 151/71 07/21/20 17:44 150 158/71 07/21/20 17:00 90 21 145/52 (83) 99 07/21/20 16:30 90 24 148/54 (85) 99 07/21/20 16:00 99.6 149 23 129/61 (83) 100 07/21/20 16:00 100 07/21/20 16:00 85 07/21/20 15:15 144 21 100 07/21/20 15:00 91 21 148/59 (88) 98 l Intake and Output 07/21/20 07/22/20 19:00 07:00 Intake Total 495 ml 315 ml Balance 495 ml 315 ml IV Total 360 ml Tube Feeding 105 ml 315 ml Other 30 ml # Voids 1 # Bowel Movements 1 Current Medications Medications (Trade) Dose Ordered Sig/Toya Route PRN Reason Start Time Stop Time Status Last Admin Dose Admin Acetaminophen (Tylenol) 500 mg Q4HR PRN ORAL For Pain 07/17/20 00:00 08/16/20 00:00 07/22/20 10:14 Acetaminophen (Tylenol) 500 mg Q8H PRN ORAL FHMP 07/16/20 22:45 08/15/20 22:44 07/21/20 17:42 Albuterol Sulfate (Proventil MDI) 2 puff Q4H PRN INH Shortness of Breath 07/16/20 19:00 10/14/20 18:59 Azithromycin (Zithromax) 250 mg DAILY ORAL 07/19/20 09:00 07/26/20 08:59 07/22/20 09:28 Calcium Acetate (Phoslo) 1,334 mg TID ORAL 07/17/20 09:00 10/15/20 08:59 07/22/20 13:00 Ceftriaxone Sodium 1 gm/ Dextrose 55 ml @ 110 mls/hr Q24H IVPB 07/20/20 12:15 07/27/20 12:14 07/22/20 13:00 Chlorhexidine Gluconate (Yessi-Hex 2%) 1 applic DAILY@2000 TOPIC 07/21/20 20:00 10/19/20 19:59 07/21/20 20:17 Clonidine HCl (Catapres Tab) 0.1 mg Q4H PRN NG bp over 165 syst 07/21/20 12:00 10/14/20 22:44 Dexamethasone Sodium Phosphate (Decadron 10mg/ ml Inj) 6 mg DAILY IV 07/20/20 12:15 07/29/20 09:01 07/22/20 09:28 Dextrose (Dextrose 50%) 25 ml Q30M PRN IV Hypoglycemia 07/22/20 08:00 10/20/20 07:59 Dextrose (Dextrose 50%) 50 ml Q30M PRN IV Hypoglycemia 07/22/20 08:00 10/20/20 07:59 Diltiazem HCl (Cardizem Tab) 60 mg EVERY 6 HOURS NG 07/21/20 18:00 08/16/20 13:59 07/22/20 05:52 Docusate Sodium (Colace) 100 mg THREE TIMES A DAY NG 07/21/20 13:00 08/20/20 12:59 07/22/20 13:00 Haloperidol Lactate (Haldol) 5 mg Q6H PRN IM Agitation 07/17/20 17:30 08/31/20 17:29 07/18/20 21:34 Hydralazine HCl (Apresoline) 50 mg EVERY 8 HOURS NG 07/21/20 22:00 10/15/20 05:59 07/22/20 05:51 Insulin Aspart (NovoLOG) Q6HR SUBQ 07/22/20 08:15 10/20/20 11:29 07/22/20 13:16 Insulin Detemir (Levemir) 15 units Q12HR SUBQ 07/22/20 10:00 10/20/20 09:59 07/22/20 10:12 Lorazepam (Ativan 2mg/ml 1ml) 1 mg Q4H PRN IV For Anxiety 07/20/20 22:15 07/27/20 22:14 07/22/20 06:47 Pantoprazole (Protonix) 40 mg EVERY 12 HOURS IVP 07/21/20 21:00 08/20/20 20:59 07/22/20 09:28 Quetiapine Fumarate (SEROqueL) 50 mg Q12HR ORAL 07/17/20 14:00 08/31/20 13:59 07/22/20 09:28 Laboratory Tests 07/22/20 04:30: White Blood Count 5.3, Red Blood Count 2.64L, Hemoglobin 8.9L, Hematocrit 28.5L, Mean Corpuscular Volume 108H, Mean Corpuscular Hemoglobin 33.7H, Mean Corpuscular Hemoglobin Concent 31.2L, Red Cell Distribution Width 15.6H, Platelet Count 93L, Mean Platelet Volume 7.4, Neutrophils (%) (Auto) , Lymphocytes (%) (Auto) , Monocytes (%) (Auto) , Eosinophils (%) (Auto) , Basophils (%) (Auto) , Differential Total Cells Counted 100, Neutrophils % (Manual) 94H, Lymphocytes % (Manual) 2L, Monocytes % (Manual) 4, Eosinophils % (Manual) 0, Basophils % (Manual) 0, Band Neutrophils 0, Platelet Estimate DecreasedL, Platelet Morphology Normal, Polychromasia 1+, Hypochromasia 1+, Anisocytosis 1+, Macrocytosis 1+, Sodium Level 140, Potassium Level 4.9, Chloride Level 100, Carbon Dioxide Level 27, Anion Gap 13, Blood Urea Nitrogen 104H, Creatinine 7.0H, Estimat Glomerular Filtration Rate 5.8, Glucose Level 612#*H, Calcium Level 8.1L, Phosphorus Level 4.0, Magnesium Level 2.3, Total Bilirubin 1.2H, Direct Bilirubin 0.6H, Aspartate Amino Transf (AST/SGOT) 30, Alanine Aminotransferase (ALT/SGPT) 13, Alkaline Phosphatase 211H, Troponin I 0.834H, C-Reactive Protein, Quantitative 21.9H, Pro-B-Type Natriuretic Peptide [Pending], Total Protein 6.3L, Albumin 2.3L, Globulin 4.0, Albumin/Globulin Ratio 0.6L 07/22/20 09:46: Arterial Blood pH 7.306L, Arterial Blood Partial Pressure CO2 51.7H, Arterial Blood Partial Pressure O2 44.4*L, Arterial Blood HCO3 25.2, Arterial Blood Oxygen Saturation 72.8*L, Arterial Blood Base Excess -1.4, Faheem Test Positive Height (Feet): 5 Height (Inches): 4.00 Weight (Pounds): 180 General Appearance: no apparent distress EENT: other - Intubated in ICU on ventilator Cardiovascular: tachycardia - Rate late 80s Respiratory/Chest: decreased breath sounds Abdomen: distended Francis Falk MD Jul 22, 2020 14:43
--- NOTE | 2020-07-22 16:00 | NUR ---
NURSE NOTES: Hemodialysis nurse is at bedside, HD in progress. VS remain stable, HD nurse, Young RN is administering Albumin. Pt remains afebrile, Temp 98.8F axillary.
--- NOTE | 2020-07-22 18:30 | NUR ---
NURSE NOTES: Hemodialysis is now complete. Total of 2L fluid was removed. Pt tolerated procedure well, VS remains stable. Pt remains afebrile. Pt had BM, x1, large/dark/tarry/stool. Bed bath was given. Pt was repositioned, with bilateral extremities elevated on pillows. Oral care was done.
--- NOTE | 2020-07-22 19:15 | NUR ---
NURSE HAND-OFF REPORT: Latest Vital Signs: Temperature 98.8F axillary , Pulse 81 , B/P 115 /47 , Respiratory Rate 19 , O2 SAT 95 , ETT 7.5 with vent settings AC16, VT500, Peep 10, FIO2 100%. Vital Sign Comment: Hemodialysis was completed at 1830 today, with total of 2L of fluid removed. EKG Rhythm: Sinus Rhythm Rhythm change?: N MD Notified?: - MD Response: Latest Elizabeth Fall Score: 35 Fall Risk: Medium Risk Safety Measures: Call light Within Reach, Bed Alarm Zone 1, Side Rails Side Rails x2, Bed position Low and Locked. Fall Precautions: Door Sign Report given to Viridiana LITTLE. Endorsed plan of care.
--- NOTE | 2020-07-22 19:16 | NUR ---
NURSE NOTES: received pt from Cyndy LITTLE., pt is sleeping at this time easy to arouse. AOx 0. lunchroom monitor shows SR at this time. ET size 7.5 lip line 24cm AC 16 TV 500 Fio2 100 P10 at this time. O2sat is at 98% no SOB noted. Gtube site intact, clean, and patent. left upper arm AV shunt noted for HD. bruit and thrill noted. right femoral TLC site intact, clean, and patent. bilateral soft wrist restrain noted, pulse noted, skin intact. ABD soft, large, and non-tender. no active bleeding noted at this time. call light within reach. will continue to monitor pt with plan of care. bed at the lowest position, alaramed, and locked.
--- NOTE | 2020-07-22 20:20 | General Progress Note ---
Subjective ROS Limited/Unobtainable: Yes Allergies: Coded Allergies: No Known Allergies (Unverified , 05/12/17) Objective Last 24 Hour Vital Signs Date Time Temp Pulse Resp B/P (MAP) Pulse Ox O2 Delivery O2 Flow Rate FiO2 07/22/20 19:30 81 19 115/47 (69) 07/22/20 19:08 85 20 100 07/22/20 19:00 81 19 108/38 (61) 07/22/20 18:00 78 20 115/43 (67) 95 07/22/20 17:14 84 87/37 07/22/20 17:00 86 16 87/37 (54) 95 07/22/20 16:30 85 16 100/41 (60) 95 07/22/20 16:00 82 07/22/20 16:00 97.8 85 16 122/41 (68) 07/22/20 16:00 86 07/22/20 16:00 100 07/22/20 15:30 84 21 121/41 (67) 07/22/20 15:29 92 21 100 07/22/20 15:00 88 16 129/41 (70) 07/22/20 14:00 88 18 130/42 (71) 92 07/22/20 13:00 87 20 126/42 (70) 78 07/22/20 12:00 88 07/22/20 12:00 89 20 125/41 (69) 78 07/22/20 12:00 100 07/22/20 11:29 93 16 100 07/22/20 11:00 99.5 91 23 127/43 (71) 90 07/22/20 10:44 99.5 07/22/20 10:00 85 23 123/46 (71) 90 07/22/20 09:00 90 21 142/44 (76) 89 07/22/20 08:00 101.7 87 23 131/48 (75) 89 07/22/20 08:00 100 07/22/20 08:00 87 07/22/20 07:19 90 23 100 07/22/20 07:17 88 23 133/51 90 07/22/20 07:00 85 20 126/40 (68) 89 07/22/20 06:47 82 23 134/42 92 07/22/20 06:00 89 21 144/42 (76) 94 07/22/20 05:52 89 142/44 07/22/20 05:51 142/44 07/22/20 05:00 89 25 139/48 (78) 93 07/22/20 04:00 99.2 85 20 132/41 (71) 93 07/22/20 04:00 84 07/22/20 04:00 100 07/22/20 03:08 83 20 100 07/22/20 03:00 87 21 136/47 (76) 94 07/22/20 02:52 84 18 136/47 94 07/22/20 02:22 88 18 142/52 94 07/22/20 02:00 84 19 142/52 (82) 94 07/22/20 01:00 88 20 135/46 (75) 95 07/22/20 00:22 97 131/72 07/22/20 00:00 84 07/22/20 00:00 98.9 86 20 135/45 (75) 96 07/22/20 00:00 100 07/21/20 23:00 89 20 141/57 (85) 96 07/21/20 22:52 97 25 100 07/21/20 22:27 91 30 140/74 93 07/21/20 22:00 90 21 141/53 (82) 97 07/21/20 21:57 98 17 151/57 98 07/21/20 21:51 151/57 07/21/20 21:00 90 19 148/48 (81) 96 Intake and Output 07/21/20 07/22/20 19:00 07:00 Intake Total 495 ml 315 ml Balance 495 ml 315 ml IV Total 360 ml Tube Feeding 105 ml 315 ml Other 30 ml # Voids 1 # Bowel Movements 1 Laboratory Tests 07/22/20 04:30: White Blood Count 5.3, Red Blood Count 2.64L, Hemoglobin 8.9L, Hematocrit 28.5L, Mean Corpuscular Volume 108H, Mean Corpuscular Hemoglobin 33.7H, Mean Corpuscular Hemoglobin Concent 31.2L, Red Cell Distribution Width 15.6H, Platelet Count 93L, Mean Platelet Volume 7.4, Neutrophils (%) (Auto) , Lymphocytes (%) (Auto) , Monocytes (%) (Auto) , Eosinophils (%) (Auto) , Basophils (%) (Auto) , Differential Total Cells Counted 100, Neutrophils % (Manual) 94H, Lymphocytes % (Manual) 2L, Monocytes % (Manual) 4, Eosinophils % (Manual) 0, Basophils % (Manual) 0, Band Neutrophils 0, Platelet Estimate DecreasedL, Platelet Morphology Normal, Polychromasia 1+, Hypochromasia 1+, Anisocytosis 1+, Macrocytosis 1+, Sodium Level 140, Potassium Level 4.9, Chloride Level 100, Carbon Dioxide Level 27, Anion Gap 13, Blood Urea Nitrogen 104H, Creatinine 7.0H, Estimat Glomerular Filtration Rate 5.8, Glucose Level 612#*H, Calcium Level 8.1L, Phosphorus Level 4.0, Magnesium Level 2.3, Total Bilirubin 1.2H, Direct Bilirubin 0.6H, Aspartate Amino Transf (AST/SGOT) 30, Alanine Aminotransferase (ALT/SGPT) 13, Alkaline Phosphatase 211H, Troponin I 0.834H, C-Reactive Protein, Quantitative 21.9H, Pro-B-Type Natriuretic Peptide [Pending], Total Protein 6.3L, Albumin 2.3L, Globulin 4.0, Albumin/Globulin Ratio 0.6L 07/22/20 09:46: Arterial Blood pH 7.306L, Arterial Blood Partial Pressure CO2 51.7H, Arterial Blood Partial Pressure O2 44.4*L, Arterial Blood HCO3 25.2, Arterial Blood Oxygen Saturation 72.8*L, Arterial Blood Base Excess -1.4, Faheem Test Positive Height (Feet): 5 Height (Inches): 4.00 Weight (Pounds): 180 Assessment/Plan Problem List: (1) Pneumonia ICD Codes: J18.9 - Pneumonia, unspecified organism SNOMED: 015152308 (2) Hypertension ICD Codes: I10 - Essential (primary) hypertension SNOMED: 73785155 (3) Renal failure ICD Codes: N19 - Unspecified kidney failure SNOMED: 97370144 (4) Anemia in chronic kidney disease (CKD) ICD Codes: N18.9 - Chronic kidney disease, unspecified; D63.1 - Anemia in chronic kidney disease SNOMED: 059304136 (5) weakness (6) ESRD (end stage renal disease) ICD Codes: N18.6 - End stage renal disease SNOMED: 85958172 (7) Diabetic nephropathy with proteinuria ICD Codes: E11.21 - Type 2 diabetes mellitus with diabetic nephropathy SNOMED: 78404960, 677748156 Status: deteriorating Assessment/Plan: intubated lethargic htn resp failure niddm covid positive pna copd not improving poor prognosis Makenna Daniel MD Jul 22, 2020 20:20
[2020-07-22] MEDS: Dyna-Hex 2% Top Sol 2oz TOPIC SCH (20:43)
--- NOTE | 2020-07-22 21:05 | NUR ---
NURSE NOTES: spoke with pt's daughter Alice Donnelly. updated pt's status at this time in RN's ability.
--- NOTE | 2020-07-22 21:10 | NUR ---
NURSE NOTES: pt O2sat is at 95%, no SOB noted. pt is resting on the bed. call light within reach. will continue to monitor pt.
--- NOTE | 2020-07-22 23:45 | NUR ---
NURSE NOTES: D/C restrain, pt is sleeping and resting at this moment.
[2020-07-23] VITALS (24 sets, daily range): BP systolic 122–158; BP diastolic 40–66
[2020-07-23] MEDS: dilTIAZem HCl 60mg tab NG SCH ×5 (00:11→23:32)
[2020-07-23] MEDS: LORazepam Inj 2mg/ml 1ml IV PRN (00:44)
--- NOTE | 2020-07-23 01:40 | NUR ---
NURSE NOTES: O2 sat is at 97%. pt is stable condition.
--- NOTE | 2020-07-23 03:40 | NUR ---
NURSE NOTES: oral care given, cleaned pt. new sheets given, repositioned pt. BM noted (green). call light within reach.
[2020-07-23] MEDS: Acetaminophen 500mg (ES) tab ORAL PRN ×3 (03:49→17:40)
--- NOTE | 2020-07-23 05:00 | NUR ---
NURSE NOTES: repositioned pt, oral suctioned. no residual noted for feeding. call light within reach.
[2020-07-23] MEDS: HydrALAZINE 50mg tab NG SCH ×3 (05:27→22:26)
[2020-07-23] MEDS: NovoLOG Insulin Flexpen SUBQ SCH ×4 (05:31→17:39)
[2020-07-23 05:51] LABS: HEMATOCRIT 26.5 % (37.0-47.0); HEMOGLOBIN 8.7 G/DL (12.0-16.0); MEAN CORPUSCULAR VOLUME 102 FL (80-99); PLATELET COUNT 90 K/UL (150-450); RED BLOOD COUNT 2.58 M/UL (4.20-5.40); RED CELL DISTRIBUTION WIDTH 14.7 % (11.6-14.8); WHITE BLOOD COUNT 8.9 K/UL (4.8-10.8)
[2020-07-23 06:01] LABS: CALCIUM 8.6 MG/DL (8.5-10.1); CREATININE 4.9 MG/DL (0.55-1.30); POTASSIUM 3.8 MMOL/L (3.5-5.1)
--- NOTE | 2020-07-23 06:37 | NUR ---
NURSE NOTES: Dr. Blair at the bedside.
[2020-07-23 06:57] LABS: ALANINE AMINOTRANSFERASE 13 U/L (12-78); ALBUMIN 2.3 G/DL (3.4-5.0); ALKALINE PHOSPHATASE 198 U/L (46-116); ASPARTATE AMINO TRANSFERASE 29 U/L (15-37); BILIRUBIN,DIRECT 0.5 MG/DL (0.0-0.3); BILIRUBIN,TOTAL 1.1 MG/DL (0.2-1.0); GAMMA GLUTAMYL TRANSPEPTIDASE 590 U/L (5-85); LACTATE DEHYDROGENASE 422 U/L (81-234); PHOSPHORUS 1.1 MG/DL (2.5-4.9)
--- NOTE | 2020-07-23 06:58 | NUR ---
NURSE NOTES: notified Dr. Leonard regarding pt's black tarry stool. will wait for call back.
--- NOTE | 2020-07-23 07:01 | Hematology/Onc Progress Note ---
Assessment/Plan Assessment/Plan Assessment/Plan 1. Pancytopenia with hx anemia due to underlying chronic disease. Have reviewed prior workup, ferritin is >1000, though percent saturation Tsat <30, but not recommended for further iron, also with covid19++++ --> Continue to closely monitor. --> Transfuse if hgb <7 --> ferritin is >1000 --> give epogen, has been started 3x a week --> as per renal --> monitor for gi bleed, gi consulted --> hgb trend 7.8-->9.3->8.9->>11-->9.5->8.9 --> plt 42-->50-->65-->(3 --> smear has been reviewed --> hep and hiv neg 2. Leukopenia likely reactive process v infection v from meds --> hepatitis and hiv prior negative --> neutropenic precautions if ANC <1500 --> trending stable --> imaging reviewed and no hsm / cirrhosis noted --> wbc 2.7-->3.6->>>2->5 --> ANC goal >1500 3. End-stage renal disease, on hemodialysis three times a week. --> renal consulted --> continue hd 4. History of coronary artery disease. --> cards reviewed --> diuresis prn 5. History of anemia due to low B12, low iron --> b12 is currently within normal limits --> reobtain q6mo 6. Dizziness and unsteady gait 7. DVt ppsx with SCDs Greatly appreciate consultation and Selvin RN Subjective HEENT: Denies: no symptoms, eye pain, blurred vision, tearing, double vision, ear pain, ear discharge, nose pain, nose congestion, throat pain, throat swelling, mouth pain, mouth swelling, other Cardiovascular: Denies: no symptoms, chest pain, edema, irregular heart rate, lightheadedness, palpitations, syncope, other Gastrointestinal/Abdominal: Denies: no symptoms, abdomen distended, abdominal pain, black stools, tarry stools, blood in stool, constipated, diarrhea, difficulty swallowing, nausea, poor appetite, poor fluid intake, rectal bleeding, vomiting, other Genitourinary: Denies: no symptoms, burning, discharge, frequency, flank pain, hematuria, incontinence, pain, urgency, other Neurologic/Psychiatric: Denies: no symptoms, anxiety, depressed, emotional problems, headache, numbness, paresthesia, pre-existing deficit, seizure, tingling, tremors, weakness, other Endocrine: Denies: no symptoms, excessive sweating, flushing, intolerance to cold, intolerance to heat, increased hunger, increased thirst, increased urine, unexplained weight gain, unexplained weight loss, other Hematologic/Lymphatic: Denies: no symptoms, anemia, easy bleeding, easy bruising, adenopathy, other Allergies: Coded Allergies: No Known Allergies (Unverified , 05/12/17) Subjective 07/19 meds noted, s/p hd, bp has improved, no bleeding, labs reviewed 07/20 labs are noted, no bleeding, meds reviewed, no major changes, hgb 9.5 07/22 remains in the icu, no bleeding, meds reviewed, on nc 07/23 labs noted, no bleeding, in icu, hgb 8.7, plt 90 Objective Objective Current Medications Medications (Trade) Dose Ordered Sig/Toya Route PRN Reason Start Time Stop Time Status Last Admin Dose Admin Acetaminophen (Tylenol) 500 mg Q4HR PRN ORAL For Pain 07/17/20 00:00 08/16/20 00:00 07/23/20 03:49 Acetaminophen (Tylenol) 500 mg Q8H PRN ORAL FHMP 07/16/20 22:45 08/15/20 22:44 07/21/20 17:42 Albuterol Sulfate (Proventil MDI) 2 puff Q4H PRN INH Shortness of Breath 07/16/20 19:00 10/14/20 18:59 Azithromycin (Zithromax) 250 mg DAILY ORAL 07/19/20 09:00 07/26/20 08:59 07/22/20 09:28 Calcium Acetate (Phoslo) 1,334 mg TID ORAL 07/17/20 09:00 10/15/20 08:59 07/22/20 17:42 Ceftriaxone Sodium 1 gm/ Dextrose 55 ml @ 110 mls/hr Q24H IVPB 07/20/20 12:15 07/27/20 12:14 07/22/20 13:00 Chlorhexidine Gluconate (Yessi-Hex 2%) 1 applic DAILY@1999 TOPIC 07/21/20 20:00 10/19/20 19:59 07/22/20 20:43 Clonidine HCl (Catapres Tab) 0.1 mg Q4H PRN NG bp over 165 syst 07/21/20 12:00 10/14/20 22:44 Dexamethasone Sodium Phosphate (Decadron 10mg/ ml Inj) 6 mg DAILY IV 07/20/20 12:15 07/29/20 09:01 07/22/20 09:28 Dextrose (Dextrose 50%) 25 ml Q30M PRN IV Hypoglycemia 07/22/20 08:00 10/20/20 07:59 Dextrose (Dextrose 50%) 50 ml Q30M PRN IV Hypoglycemia 07/22/20 08:00 10/20/20 07:59 Diltiazem HCl (Cardizem Tab) 60 mg EVERY 6 HOURS NG 07/21/20 18:00 08/16/20 13:59 07/23/20 05:28 Docusate Sodium (Colace) 100 mg THREE TIMES A DAY NG 07/21/20 13:00 08/20/20 12:59 07/22/20 17:41 Haloperidol Lactate (Haldol) 5 mg Q6H PRN IM Agitation 07/17/20 17:30 08/31/20 17:29 07/18/20 21:34 Hydralazine HCl (Apresoline) 50 mg EVERY 8 HOURS NG 07/21/20 22:00 10/15/20 05:59 07/23/20 05:27 Insulin Aspart (NovoLOG) Q6HR SUBQ 07/22/20 08:15 10/20/20 11:29 07/23/20 00:00 Insulin Detemir (Levemir) 15 units Q12HR SUBQ 07/22/20 10:00 10/20/20 09:59 07/22/20 21:07 Lorazepam (Ativan 2mg/ml 1ml) 1 mg Q4H PRN IV For Anxiety 07/20/20 22:15 07/27/20 22:14 07/23/20 00:44 Pantoprazole (Protonix) 40 mg EVERY 12 HOURS IVP 07/21/20 21:00 08/20/20 20:59 07/22/20 20:43 Quetiapine Fumarate (SEROqueL) 50 mg Q12HR ORAL 07/17/20 14:00 08/31/20 13:59 07/22/20 20:43 Last 24 Hour Vital Signs Date Time Temp Pulse Resp B/P (MAP) Pulse Ox O2 Delivery O2 Flow Rate FiO2 07/23/20 06:00 94 24 158/55 (89) 93 07/23/20 05:28 91 147/48 07/23/20 05:27 147/48 07/23/20 05:00 88 20 155/48 (83) 95 07/23/20 04:00 100 07/23/20 04:00 98.9 99 24 144/52 (82) 07/23/20 03:30 104 07/23/20 03:09 130 23 100 07/23/20 03:00 147 24 135/55 (81) 07/23/20 02:00 97 22 140/46 (77) 07/23/20 02:00 97 22 140/46 (77) 07/23/20 01:14 101 20 139/46 96 07/23/20 01:00 100 20 136/45 (75) 07/23/20 00:44 160 33 141/48 95 07/23/20 00:11 95 137/49 07/23/20 00:00 99.9 154 26 122/60 (80) 07/22/20 23:57 163 07/22/20 23:27 95 23 100 07/22/20 23:00 104 24 137/49 (78) 07/22/20 22:29 132/46 07/22/20 22:00 103 25 138/50 (79) 07/22/20 21:00 94 21 135/47 (76) 07/22/20 20:00 100 07/22/20 20:00 98.0 90 23 126/48 (74) 07/22/20 19:53 97 07/22/20 19:30 81 19 115/47 (69) 07/22/20 19:08 85 20 100 07/22/20 19:00 81 19 108/38 (61) 07/22/20 18:00 78 20 115/43 (67) 95 07/22/20 17:14 84 87/37 07/22/20 17:00 86 16 87/37 (54) 95 07/22/20 16:30 85 16 100/41 (60) 95 12/20/20 16:00 82 07/22/20 16:00 97.8 85 16 122/41 (68) 07/22/20 16:00 86 07/22/20 16:00 100 07/22/20 15:30 84 21 121/41 (67) 20 15:29 92 21 100 07/22/20 15:00 88 16 129/41 (70) 07/22/20 14:00 88 18 130/42 (71) 92 07/22/20 13:00 87 20 126/42 (70) 78 07/22/20 12:00 88 07/22/20 12:00 89 20 125/41 (69) 78 07/22/20 12:00 100 07/22/20 11:29 93 16 100 07/22/20 11:00 99.5 91 23 127/43 (71) 90 07/22/20 10:44 99.5 07/22/20 10:00 85 23 123/46 (71) 90 07/22/20 09:00 90 21 142/44 (76) 89 07/22/20 08:00 101.7 87 23 131/48 (75) 89 07/22/20 08:00 100 07/22/20 08:00 87 07/22/20 07:19 90 23 100 07/22/20 07:17 88 23 133/51 90 07/22/20 07:00 85 20 126/40 (68) 89 07/22/20 06:47 82 23 134/42 92 07/22/20 06:00 89 21 144/42 (76) 94 07/22/20 05:52 89 142/44 07/22/20 05:51 142/44 07/22/20 05:00 89 25 139/48 (78) 93 07/22/20 04:00 99.2 85 20 132/41 (71) 93 07/22/20 04:00 84 07/22/20 04:00 100 07/22/20 03:08 83 20 100 07/22/20 03:00 87 21 136/47 (76) 94 07/22/20 02:52 84 18 136/47 94 07/22/20 02:22 88 18 142/52 94 07/22/20 02:00 84 19 142/52 (82) 94 07/22/20 01:00 88 20 135/46 (75) 95 07/22/20 00:22 97 131/72 07/22/20 00:00 84 07/22/20 00:00 98.9 86 20 135/45 (75) 96 07/22/20 00:00 100 07/21/20 23:00 89 20 141/57 (85) 96 07/21/20 22:52 97 25 100 07/21/20 22:27 91 30 140/74 93 07/21/20 22:00 90 21 141/53 (82) 97 07/21/20 21:57 98 17 151/57 98 07/21/20 21:51 151/57 07/21/20 21:00 90 19 148/48 (81) 96 07/21/20 20:00 100 07/21/20 20:00 103 07/21/20 20:00 99.5 96 24 146/50 (82) 97 07/21/20 19:30 103 21 137/50 (79) 98 07/21/20 19:16 91 22 100 07/21/20 19:00 84 21 136/42 (73) 99 07/21/20 18:30 85 24 136/43 (74) 99 07/21/20 18:00 143 24 127/57 (80) 98 07/21/20 17:46 150 23 151/71 07/21/20 17:44 150 158/71 07/21/20 17:00 90 21 145/52 (83) 99 07/21/20 16:30 90 24 148/54 (85) 99 07/21/20 16:00 99.6 149 23 129/61 (83) 100 07/21/20 16:00 100 07/21/20 16:00 85 07/21/20 15:15 144 21 100 07/21/20 15:00 91 21 148/59 (88) 98 07/21/20 14:00 81 20 142/50 (80) 98 07/21/20 13:00 88 20 141/48 (79) 07/21/20 12:00 99.8 83 20 143/45 (77) 07/21/20 12:00 100 07/21/20 11:52 91 07/21/20 11:00 86 20 145/46 (79) 100 07/21/20 10:42 86 22 100 07/21/20 10:30 86 20 138/48 (78) 100 07/21/20 10:00 89 20 141/46 (77) 100 07/21/20 09:40 123 23 140/65 96 07/21/20 09:30 98 22 132/83 (99) 100 07/21/20 09:00 92 153/59 (90) 100 07/21/20 08:30 89 23 148/55 (86) 07/21/20 08:00 100 07/21/20 08:00 100.9 93 24 154/50 (84) 100 07/21/20 08:00 95 07/21/20 07:50 91 29 100 07/21/20 07:30 82 20 144/42 (76) 97 Intake and Output 07/22/20 07/23/20 19:00 07:00 Intake Total 650 ml 360 ml Output Total 2000 ml 0 ml Balance -1350 ml 360 ml Free Water 180 ml 30 ml IV Total 110 ml Tube Feeding 360 ml 330 ml Output Urine Total 0 ml 0 ml Hemodialysis UF 2000 ml # Voids 1 # Bowel Movements 1 1 Labs Test 07/20/20 08:35 07/20/20 09:50 07/20/20 17:53 07/20/20 20:48 White Blood Count 3.7 K/UL (4.8-10.8) Red Blood Count 2.77 M/UL (4.20-5.40) Hemoglobin 9.2 G/DL (12.0-16.0) Hematocrit 27.9 % (37.0-47.0) Mean Corpuscular Volume 101 FL (80-99) Mean Corpuscular Hemoglobin 33.1 PG (27.0-31.0) Mean Corpuscular Hemoglobin Concent 32.9 G/DL (32.0-36.0) Red Cell Distribution Width 16.2 % (11.6-14.8) Platelet Count 91 K/UL (150-450) Mean Platelet Volume 8.6 FL (6.5-10.1) Neutrophils (%) (Auto) % (45.0-75.0) Lymphocytes (%) (Auto) % (20.0-45.0) Monocytes (%) (Auto) % (1.0-10.0) Eosinophils (%) (Auto) % (0.0-3.0) Basophils (%) (Auto) % (0.0-2.0) Differential Total Cells Counted 100 Neutrophils % (Manual) 91 % (45-75) Lymphocytes % (Manual) 6 % (20-45) Monocytes % (Manual) 3 % (1-10) Eosinophils % (Manual) 0 % (0-3) Basophils % (Manual) 0 % (0-2) Band Neutrophils 0 % (0-8) Platelet Estimate Decreased Platelet Morphology Normal Anisocytosis 1+ Macrocytosis 1+ Sodium Level 143 MMOL/L (136-145) Potassium Level 5.8 MMOL/L (3.5-5.1) Chloride Level 103 MMOL/L (98-107) Carbon Dioxide Level 31 MMOL/L (21-32) Anion Gap 9 mmol/L (5-15) Blood Urea Nitrogen 102 mg/dL (7-18) Creatinine 7.3 MG/DL (0.55-1.30) Estimat Glomerular Filtration Rate 5.5 mL/min (>60) Glucose Level 419 MG/DL (74-106) Calcium Level 9.0 MG/DL (8.5-10.1) Total Bilirubin 1.5 MG/DL (0.2-1.0) Direct Bilirubin 0.9 MG/DL (0.0-0.3) Aspartate Amino Transf (AST/SGOT) 45 U/L (15-37) Alanine Aminotransferase (ALT/SGPT) 14 U/L (12-78) Alkaline Phosphatase 271 U/L (46-116) Total Protein 7.3 G/DL (6.4-8.2) Albumin 2.9 G/DL (3.4-5.0) Globulin 4.4 g/dL Albumin/Globulin Ratio 0.7 (1.0-2.7) Arterial Blood pH 7.228 (7.350-7.450) 6.868 (7.350-7.450) 7.310 (7.350-7.450) Arterial Blood Partial Pressure CO2 68.7 mmHg (35.0-45.0) 195.9 mmHg (35.0-45.0) 53.8 mmHg (35.0-45.0) Arterial Blood Partial Pressure O2 107.5 mmHg (75.0-100.0) 70.5 mmHg (75.0-100.0) 49.4 mmHg (75.0-100.0) Arterial Blood HCO3 28.0 mmol/L (22.0-26.0) 34.8 mmol/L (22.0-26.0) 26.5 mmol/L (22.0-26.0) Arterial Blood Oxygen Saturation 96.2 % (95-100) 81.5 % (95-100) 82.4 % (95-100) Arterial Blood Base Excess -0.5 (-2-2) -1.4 (-2-2) -0.2 (-2-2) Faheem Test Positive Positive Positive Test 07/21/20 05:30 07/22/20 04:30 07/22/20 09:46 07/23/20 00:13 White Blood Count 5.5 K/UL (4.8-10.8) 5.3 K/UL (4.8-10.8) Red Blood Count 2.61 M/UL (4.20-5.40) 2.64 M/UL (4.20-5.40) Hemoglobin 8.7 G/DL (12.0-16.0) 8.9 G/DL (12.0-16.0) Hematocrit 26.9 % (37.0-47.0) 28.5 % (37.0-47.0) Mean Corpuscular Volume 103 FL (80-99) 108 FL (80-99) Mean Corpuscular Hemoglobin 33.4 PG (27.0-31.0) 33.7 PG (27.0-31.0) Mean Corpuscular Hemoglobin Concent 32.5 G/DL (32.0-36.0) 31.2 G/DL (32.0-36.0) Red Cell Distribution Width 15.4 % (11.6-14.8) 15.6 % (11.6-14.8) Platelet Count 93 K/UL (150-450) 93 K/UL (150-450) Mean Platelet Volume 8.2 FL (6.5-10.1) 7.4 FL (6.5-10.1) Neutrophils (%) (Auto) % (45.0-75.0) % (45.0-75.0) Lymphocytes (%) (Auto) % (20.0-45.0) % (20.0-45.0) Monocytes (%) (Auto) % (1.0-10.0) % (1.0-10.0) Eosinophils (%) (Auto) % (0.0-3.0) % (0.0-3.0) Basophils (%) (Auto) % (0.0-2.0) % (0.0-2.0) Differential Total Cells Counted 100 100 Neutrophils % (Manual) 93 % (45-75) 94 % (45-75) Lymphocytes % (Manual) 2 % (20-45) 2 % (20-45) Monocytes % (Manual) 5 % (1-10) 4 % (1-10) Eosinophils % (Manual) 0 % (0-3) 0 % (0-3) Basophils % (Manual) 0 % (0-2) 0 % (0-2) Band Neutrophils 0 % (0-8) 0 % (0-8) Platelet Estimate Decreased Decreased Platelet Morphology Normal Normal Hypochromasia 1+ 1+ Anisocytosis 1+ 1+ Macrocytosis 1+ 1+ Sodium Level 141 MMOL/L (136-145) 140 MMOL/L (136-145) Potassium Level 4.2 MMOL/L (3.5-5.1) 4.9 MMOL/L (3.5-5.1) Chloride Level 100 MMOL/L (98-107) 100 MMOL/L (98-107) Carbon Dioxide Level 27 MMOL/L (21-32) 27 MMOL/L (21-32) Anion Gap 14 mmol/L (5-15) 13 mmol/L (5-15) Blood Urea Nitrogen 65 mg/dL (7-18) 104 mg/dL (7-18) Creatinine 5.1 MG/DL (0.55-1.30) 7.0 MG/DL (0.55-1.30) Estimat Glomerular Filtration Rate 8.3 mL/min (>60) 5.8 mL/min (>60) Glucose Level 328 MG/DL (74-106) 612 MG/DL (74-106) Calcium Level 8.4 MG/DL (8.5-10.1) 8.1 MG/DL (8.5-10.1) Polychromasia 1+ Phosphorus Level 4.0 MG/DL (2.5-4.9) Magnesium Level 2.3 MG/DL (1.8-2.4) Total Bilirubin 1.2 MG/DL (0.2-1.0) Direct Bilirubin 0.6 MG/DL (0.0-0.3) Aspartate Amino Transf (AST/SGOT) 30 U/L (15-37) Alanine Aminotransferase (ALT/SGPT) 13 U/L (12-78) Alkaline Phosphatase 211 U/L (46-116) Troponin I 0.834 ng/mL (0.000-0.056) C-Reactive Protein, Quantitative 21.9 mg/dL (0.00-0.90) Total Protein 6.3 G/DL (6.4-8.2) Albumin 2.3 G/DL (3.4-5.0) Globulin 4.0 g/dL Albumin/Globulin Ratio 0.6 (1.0-2.7) Arterial Blood pH 7.306 (7.350-7.450) Arterial Blood Partial Pressure CO2 51.7 mmHg (35.0-45.0) Arterial Blood Partial Pressure O2 44.4 mmHg (75.0-100.0) Arterial Blood HCO3 25.2 mmol/L (22.0-26.0) Arterial Blood Oxygen Saturation 72.8 % (95-100) Arterial Blood Base Excess -1.4 (-2-2) Faheem Test Positive POC Whole Blood Glucose 170 MG/DL (74-106) Test 07/23/20 04:10 White Blood Count 8.9 K/UL (4.8-10.8) Red Blood Count 2.58 M/UL (4.20-5.40) Hemoglobin 8.7 G/DL (12.0-16.0) Hematocrit 26.5 % (37.0-47.0) Mean Corpuscular Volume 102 FL (80-99) Mean Corpuscular Hemoglobin 33.8 PG (27.0-31.0) Mean Corpuscular Hemoglobin Concent 33.0 G/DL (32.0-36.0) Red Cell Distribution Width 14.7 % (11.6-14.8) Platelet Count 90 K/UL (150-450) Mean Platelet Volume 8.7 FL (6.5-10.1) Neutrophils (%) (Auto) % (45.0-75.0) Lymphocytes (%) (Auto) % (20.0-45.0) Monocytes (%) (Auto) % (1.0-10.0) Eosinophils (%) (Auto) % (0.0-3.0) Basophils (%) (Auto) % (0.0-2.0) Sodium Level 145 MMOL/L (136-145) Potassium Level 3.8 MMOL/L (3.5-5.1) Chloride Level 105 MMOL/L (98-107) Carbon Dioxide Level 36 MMOL/L (21-32) Anion Gap 4 mmol/L (5-15) Blood Urea Nitrogen 72 mg/dL (7-18) Creatinine 4.9 MG/DL (0.55-1.30) Estimat Glomerular Filtration Rate 8.8 mL/min (>60) Glucose Level 140 MG/DL (74-106) Calcium Level 8.6 MG/DL (8.5-10.1) Height (Feet): 5 Height (Inches): 4.00 Weight (Pounds): 180 Objective Physical Exam General Appearance: alert, obese, Chronically Ill Neck: full range of motion Respiratory: wheezing Cardiovascular: edema Gastrointestinal: normal inspection, soft Neurologic: alert, financial assistance advisor III-XII nml as tested Psychiatric: normal inspection, judgement/insight normal Skin: other Carl Daniels MD Jul 23, 2020 07:01
--- NOTE | 2020-07-23 07:26 | NUR ---
NURSE HAND-OFF REPORT: Latest Vital Signs: Temperature 98.9 , Pulse 90 , B/P 146 /47 , Respiratory Rate 22 , O2 SAT 94 , Nasal Cannula, O2 Flow Rate 3.0 . Vital Sign Comment: [stable] EKG Rhythm: Sinus Rhythm and ST (163HR) Rhythm change?: N MD Notified?: Roxanne Gatica MD Response: waiting for call Latest Elizabeth Fall Score: 35 Fall Risk: Medium Risk Safety Measures: Call light Within Reach, Bed Alarm Zone 1, Side Rails Side Rails x2, Bed position Low and Locked. Fall Precautions: Door Sign Report given to [Gloria LITTLE].
--- NOTE | 2020-07-23 07:30 | NUR ---
NURSE NOTES: Received report from SIDNEY Kemp. The patient is resting on the bed but being mildly restless and agitated. The patient is opening eyes with painful stimuli. SR to ST w/ HR of 80-150s on the cardiac cath technician. The patient is orally intubated on following setting and oxygen saturation is 92-95%: ETT 7.5 Lip line @ 24 AC 16 TV 500 FiO2 100% and PEEP 10. The patient has OGT that is intact, patent, and at right placement and running Nephro @ 30mL/hr. Per SIDNEY Kemp, small melena noted and Dr. Leonard notified. The patient is anuric. The patient has DORIS AV shunt for HD access and last HD was done on 07/22 w/ 2L out. The patient has R femoral TLC that is intact and patent and kept in TKO. Skin intact and on air matress for protection. Bilateral soft wrist restraints on per order for agitation and attempt to pull out medical tubes and skin and circulation intact. The patient's bed in the lowest position, call light in reach, and fall and aspiration precaution reinforced. IV site intact and patent. Will follow up the lab and order. Will closely monitor the patient. Will continue plan of care.
--- NOTE | 2020-07-23 08:00 | NUR ---
NURSE NOTES: Morning assessment done. Morning vital signs taken. Safety measure checked. Will closely monitor the patient. Will continue plan of care.
--- NOTE | 2020-07-23 08:30 | NUR ---
NURSE NOTES: Dr. Allen was notified regarding critical ABG. Dr. Allen ordered to increase PEEP from 10 to 15. Informed RT regarding new order. Will continue plan of care.
[2020-07-23] MEDS: Docusate 100mg/10ml Liq NG SCH ×3 (09:00→17:38)
[2020-07-23] MEDS: Levemir Flexpen SUBQ SCH (09:00)
--- NOTE | 2020-07-23 09:15 | Consultation ---
DATE OF CONSULTATION: 07/22/2020 Gastroenterology Consultation CHIEF COMPLAINT: I was asked to see this patient by Dr. Makenna Daniel today for evaluation of gastrointestinal bleeding. HISTORY OF PRESENT ILLNESS: The patient is a 70-year-old woman with renal failure, who I have seen earlier this year on multiple occasions. She has had some events of gastrointestinal bleeding requiring an endoscopy and colonoscopy earlier this year, endoscopy in the middle of the year, and another endoscopy and colonoscopy towards the end of the year. Her polyps have been removed and her gastrointestinal status has been stabilized. However, now she is admitted to the hospital with COVID pneumonia and there was a report of rectal bleeding 2 days ago. However, no further rectal bleeding has been reported by nursing staff. She is tolerating the tube feeding and is nonresponsive due to the respiratory failure and use of mechanical ventilation. The remainder of the patient's medical history is as listed below. PAST MEDICAL HISTORY: History of COPD, end-stage renal disease on dialysis, [id number] diabetes, hypertension, history of gastrointestinal bleeding, history of colon polyps. PAST SURGICAL HISTORY: Dialysis catheter placement. FAMILY HISTORY: Positive for hypertension and diabetes. SOCIAL HISTORY: The patient has not had any history of smoking and drinking. She had an extended family REVIEW OF SYSTEMS: Unobtainable. PHYSICAL EXAMINATION: GENERAL: An elderly woman, seen in the ICU on the ventilator HEENT: Normocephalic and atraumatic. The patient was intubated and also orogastric tube placed. NECK: Appears supple. CHEST: Exam reveals coarse rhonchi. CARDIOVASCULAR: Regular rate. ABDOMEN: Soft. Positive bowel sounds. EXTREMITIES: Revealed no edema. LABORATORY DATA: Noted. ASSESSMENT: This patient has been infected with COVID virus and now has COVID pneumonia with respiratory failure. Her gastroenterology bleeding issue is now stabilized. I would continue tube feeding and monitor her blood count closely. Should she show evidence of rebleeding then further gastroenterology evaluation can be considered. She is to be placed on proton pump inhibitor and ICU care will be continued per protocol. RECOMMENDATIONS: 1. Continue tube feeding. 2. Monitor CBC. 3. ICU care. 4. Elevate head of bed. Thank you for asking me to participate in the care of this patient. Ramakrishna Leonard M.D. DR: MILADYS JOB#: [id number] CC: EDGAR
[2020-07-23] MEDS: Pantoprazole Inj IVP SCH ×2 (09:22→20:50)
[2020-07-23] MEDS: dexAMETHasone 10mg/ml Inj IV SCH (09:22)
--- NOTE | 2020-07-23 09:22 | NUR ---
RD ASSESSMENT & RECOMMENDATIONS SEE CARE ACTIVITY FOR COMPLETE ASSESSMENT DAILY ESTIMATED NEEDS: Needs based on ESRD on HD, DM, crtical care 54 adj 25-30 kcals/kg 4167-8001 total kcals 1.2-1.8 g protein/kg 65-97 g total protein Fluid per MD, on HD NUTRITION DIAGNOSIS: 1) Increased kcal and protein needs R/T renal dysfunction as evidenced by pt w/ESRD on HD. 2) Swallowing difficulty R/T respiratory failure as evidenced by orally intubated, on NGT feeds. 3) Altered nutrition related lab values R/T h/o DM as evidenced by elev BGs (140, 612, 328). CURRENT TF:Nepro @ 30ml/hr x 24 hrs ENTERAL NUTRITION RECOMMENDATIONS: Nepro @ 35ml/hr x 24 hrs to provide 840ml, 1512kcal, 68g prot, 611ml free water * Increase goal rate to 35ml/hr- meets 100% est kcal/prot needs * HOB over 30 degrees/ water flush per MD ADDITIONAL RECOMMENDATIONS: 1) Daily calibrated bedscale wt: Wt fluctuating 80kg's-> 60kg's 2) Monitor BGs closely: BGs uncontrolled, now on long acting insulin + NISS Monitor for hypoglycemia as well w/ increased insulin regimen 3) Nephrovite x 1 4) Monitor lytes: phos low, pt on phos binder TID, rec adjustment .
[2020-07-23] MEDS: Azithromycin 250mg tab ORAL SCH (09:23)
--- NOTE | 2020-07-23 10:00 | NUR ---
NURSE NOTES: Medications administered per order. The patient tolerated well. Docusate on hold for history of loose stool. BS 96 noted. No Levemir coverage per protocol. Will continue plan of care.
--- NOTE | 2020-07-23 10:30 | NUR ---
NURSE NOTES: Dr. Falk at the bedside assessed the patient. Dr. Falk was notified regarding abnormal lab including abnormal ABG, Hgb, BUN, and Cr. No new order at this time. Will closely monitor the patient. Will continue plan of care.
--- NOTE | 2020-07-23 10:40 | Infectious Diseases Prog Note ---
Assessment/Plan Assessment/Plan IMPRESSION: COVID-19 disease, Altered mental status and encephalopathy, End-stage renal disease on hemodialysis, COPD, Asthma, Hypertension, Pancytopenia, Diabetes mellitus with hyperglycemia, Systolic heart failure, Aortic stenosis. Hypercapnic, hypoxemic respiratory failure RECOMMENDATION: Continue dexamethasone. Continue Zithromax & Rocephin We will follow up the cultures. Subjective ROS Limited/Unobtainable: Yes Neurologic: Reports: confusion, other - on restraint Allergies: Coded Allergies: No Known Allergies (Unverified , 05/12/17) Objective Last 24 Hour Vital Signs Date Time Temp Pulse Resp B/P (MAP) Pulse Ox O2 Delivery O2 Flow Rate FiO2 07/23/20 07:06 93 20 100 07/23/20 07:00 90 22 146/47 (80) 94 07/23/20 06:00 94 24 158/55 (89) 93 07/23/20 05:28 91 147/48 07/23/20 05:27 147/48 07/23/20 05:00 88 20 155/48 (83) 95 07/23/20 04:00 100 07/23/20 04:00 98.9 99 24 144/52 (82) 07/23/20 03:30 104 07/23/20 03:09 130 23 100 07/23/20 03:00 147 24 135/55 (81) 07/23/20 02:00 97 22 140/46 (77) 07/23/20 02:00 97 22 140/46 (77) 07/23/20 01:14 101 20 139/46 96 07/23/20 01:00 100 20 136/45 (75) 07/23/20 00:44 160 33 141/48 95 07/23/20 00:11 95 137/49 07/23/20 00:00 99.9 154 26 122/60 (80) 07/22/20 23:57 163 07/22/20 23:27 95 23 100 07/22/20 23:00 104 24 137/49 (78) 07/22/20 22:29 132/46 07/22/20 22:00 103 25 138/50 (79) 07/22/20 21:00 94 21 135/47 (76) 07/22/20 20:00 100 07/22/20 20:00 98.0 90 23 126/48 (74) 07/22/20 19:53 97 07/22/20 19:30 81 19 115/47 (69) 07/22/20 19:08 85 20 100 07/22/20 19:00 81 19 108/38 (61) 07/22/20 18:00 78 20 115/43 (67) 95 07/22/20 17:14 84 87/37 07/22/20 17:00 86 16 87/37 (54) 95 07/22/20 16:30 85 16 100/41 (60) 95 07/22/20 16:00 82 07/22/20 16:00 97.8 85 16 122/41 (68) 07/22/20 16:00 86 07/22/20 16:00 100 07/22/20 15:30 84 21 121/41 (67) 07/22/20 15:29 92 21 100 07/22/20 15:00 88 16 129/41 (70) 07/22/20 14:00 88 18 130/42 (71) 92 07/22/20 13:00 87 20 126/42 (70) 78 07/22/20 12:00 88 07/22/20 12:00 89 20 125/41 (69) 78 07/22/20 12:00 100 07/22/20 11:29 93 16 100 07/22/20 11:00 99.5 91 23 127/43 (71) 90 07/22/20 10:44 99.5 Height (Feet): 5 Height (Inches): 4.00 Weight (Pounds): 180 HEENT: other - orally intubated Respiratory/Chest: other - on ventilator , ZDU9=445% Cardiovascular: normal rate Abdomen: soft, non tender Neurologic/Psychiatric: other - sedated Laboratory Tests Test 07/23/20 00:13 07/23/20 04:10 07/23/20 08:09 POC Whole Blood Glucose 170 MG/DL (74-106) H White Blood Count 8.9 K/UL (4.8-10.8) # Red Blood Count 2.58 M/UL (4.20-5.40) L Hemoglobin 8.7 G/DL (12.0-16.0) L Hematocrit 26.5 % (37.0-47.0) L Mean Corpuscular Volume 102 FL (80-99) H Mean Corpuscular Hemoglobin 33.8 PG (27.0-31.0) H Mean Corpuscular Hemoglobin Concent 33.0 G/DL (32.0-36.0) Red Cell Distribution Width 14.7 % (11.6-14.8) Platelet Count 90 K/UL (150-450) L Mean Platelet Volume 8.7 FL (6.5-10.1) Neutrophils (%) (Auto) % (45.0-75.0) Lymphocytes (%) (Auto) % (20.0-45.0) Monocytes (%) (Auto) % (1.0-10.0) Eosinophils (%) (Auto) % (0.0-3.0) Basophils (%) (Auto) % (0.0-2.0) Differential Total Cells Counted 100 Neutrophils % (Manual) 96 % (45-75) H Lymphocytes % (Manual) 1 % (20-45) L Monocytes % (Manual) 3 % (1-10) Eosinophils % (Manual) 0 % (0-3) Basophils % (Manual) 0 % (0-2) Band Neutrophils 0 % (0-8) Platelet Estimate Decreased L Platelet Morphology Normal Hypochromasia 1+ Anisocytosis 1+ Macrocytosis 1+ Sodium Level 145 MMOL/L (136-145) Potassium Level 3.8 MMOL/L (3.5-5.1) Chloride Level 105 MMOL/L (98-107) Carbon Dioxide Level 36 MMOL/L (21-32) H Anion Gap 4 mmol/L (5-15) L Blood Urea Nitrogen 72 mg/dL (7-18) H Creatinine 4.9 MG/DL (0.55-1.30) H Estimat Glomerular Filtration Rate 8.8 mL/min (>60) Glucose Level 140 MG/DL (74-106) #H Uric Acid 4.2 MG/DL (2.6-7.2) Calcium Level 8.6 MG/DL (8.5-10.1) Phosphorus Level 1.1 MG/DL (2.5-4.9) L Magnesium Level 2.1 MG/DL (1.8-2.4) Total Bilirubin 1.1 MG/DL (0.2-1.0) H Direct Bilirubin 0.5 MG/DL (0.0-0.3) H Gamma Glutamyl Transpeptidase 590 U/L (5-85) H Aspartate Amino Transf (AST/SGOT) 29 U/L (15-37) Alanine Aminotransferase (ALT/SGPT) 13 U/L (12-78) Alkaline Phosphatase 198 U/L (46-116) H Lactate Dehydrogenase 422 U/L (81-234) H C-Reactive Protein, Quantitative 43.1 mg/dL (0.00-0.90) H Pro-B-Type Natriuretic Peptide Pending Total Protein 6.3 G/DL (6.4-8.2) L Albumin 2.3 G/DL (3.4-5.0) L Arterial Blood pH 7.414 (7.350-7.450) Arterial Blood Partial Pressure CO2 55.8 mmHg (35.0-45.0) *H Arterial Blood Partial Pressure O2 46.3 mmHg (75.0-100.0) Arterial Blood HCO3 34.9 mmol/L (22.0-26.0) H Arterial Blood Oxygen Saturation 82.8 % (95-100) *L Arterial Blood Base Excess 9 (-2-2) H Faheem Test Positive Current Medications Medications (Trade) Dose Ordered Sig/Toya Route PRN Reason Start Time Stop Time Status Last Admin Dose Admin Acetaminophen (Tylenol) 500 mg Q4HR PRN ORAL For Pain 07/17/20 00:00 08/16/20 00:00 07/23/20 09:55 Acetaminophen (Tylenol) 500 mg Q8H PRN ORAL FHMP 07/16/20 22:45 08/15/20 22:44 07/21/20 17:42 Albuterol Sulfate (Proventil MDI) 2 puff Q4H PRN INH Shortness of Breath 07/16/20 19:00 10/14/20 18:59 Azithromycin (Zithromax) 250 mg DAILY ORAL 07/19/20 09:00 07/26/20 08:59 07/23/20 09:23 Ceftriaxone Sodium 1 gm/ Dextrose 55 ml @ 110 mls/hr Q24H IVPB 07/20/20 12:15 07/27/20 12:14 07/22/20 13:00 Chlorhexidine Gluconate (Yessi-Hex 2%) 1 applic DAILY@2000 TOPIC 07/21/20 20:00 10/19/20 19:59 07/22/20 20:43 Clonidine HCl (Catapres Tab) 0.1 mg Q4H PRN NG bp over 165 syst 07/21/20 12:00 10/14/20 22:44 Dexamethasone Sodium Phosphate (Decadron 10mg/ ml Inj) 6 mg DAILY IV 07/20/20 12:15 07/29/20 09:01 07/23/20 09:22 Dextrose (Dextrose 50%) 25 ml Q30M PRN IV Hypoglycemia 07/22/20 08:00 10/20/20 07:59 Dextrose (Dextrose 50%) 50 ml Q30M PRN IV Hypoglycemia 07/22/20 08:00 10/20/20 07:59 Diltiazem HCl (Cardizem Tab) 60 mg EVERY 6 HOURS NG 07/21/20 18:00 08/16/20 13:59 07/23/20 05:28 Docusate Sodium (Colace) 100 mg THREE TIMES A DAY NG 07/21/20 13:00 08/20/20 12:59 07/22/20 17:41 Haloperidol Lactate (Haldol) 5 mg Q6H PRN IM Agitation 07/17/20 17:30 08/31/20 17:29 07/18/20 21:34 Hydralazine HCl (Apresoline) 50 mg EVERY 8 HOURS NG 07/21/20 22:00 10/15/20 05:59 07/23/20 05:27 Insulin Aspart (NovoLOG) Q6HR SUBQ 07/22/20 08:15 10/20/20 11:29 07/23/20 00:00 Insulin Detemir (Levemir) 15 units Q12HR SUBQ 07/22/20 10:00 10/20/20 09:59 07/22/20 21:07 Lorazepam (Ativan 2mg/ml 1ml) 1 mg Q4H PRN IV For Anxiety 07/20/20 22:15 07/27/20 22:14 07/23/20 00:44 Pantoprazole (Protonix) 40 mg EVERY 12 HOURS IVP 07/21/20 21:00 08/20/20 20:59 07/23/20 09:22 Quetiapine Fumarate (SEROqueL) 50 mg Q12HR ORAL 07/17/20 14:00 08/31/20 13:59 07/23/20 09:23 Sodium Phosphate 10 mm/Sodium Chloride 278.3333 ml @ 92.778 m... ONCE ONCE IVPB 07/23/20 11:00 07/23/20 13:59 Kalin Briseno MD Jul 23, 2020 10:40
--- NOTE | 2020-07-23 10:53 | Nephrology Progress Note ---
Assessment/Plan Problem List: (1) Hypertensive kidney disease (2) ESRD (end stage renal disease) (3) Hyperkalemia (4) Suspected 2019 novel coronavirus infection Assessment 70-year-old female with end-stage renal disease Presented with volume overload and hyperkalemia Suspected COVID-19 virus infection Hypertensive emergency Diabetes mellitus CHF Plan July 23: Dialyzed yesterday. Labs reviewed. ABG noted. Patient hypoxic. Vent setting adjusted by track fitter. Continue current care. Dialysis tomorrow. July 22: Patient on ventilator requiring positive end expiratory pressure. Labs reviewed. Blood sugar elevated. Levemir insulin ordered. Dialysis today. Continue per consultants. July 21: Patient now in ICU. Intubated on ventilator. Was dialyzed. Blood pressure well maintained. Has NG tube. Will start medication through NG tube and start feeding. Continue per consultants. Hemodialysis as needed. July 20: Patient seen and examined. Discussed with RN. Remains encephalopathic. Poor ABG results. Patient at high risk at this stage. We will transfer patients to ICU for possible airway support. Patient due for dialysis today. Hyperkalemia probably secondary to acidosis. Will arrange for NG tube insertion and give medication through NG tube. July 19: Mental status appears slightly improved. Was dialyzed 2 days in a row. Blood pressure medication adjusted. Next dialysis tomorrow. Continue per consultants. July 18: Patient encephalopathic, was dialyzed yesterday and had 3 L removed. Will order dialysis again today. Continue per ID. Blood pressure medication adjusted. July 17: Stat hemodialysis ordered. Kayexalate for high potassium. Pulmonary support with oxygen or BiPAP as needed Blood pressure support with proper parameters Per orders Subjective ROS Limited/Unobtainable: Yes Objective Objective Last 24 Hour Vital Signs Date Time Temp Pulse Resp B/P (MAP) Pulse Ox O2 Delivery O2 Flow Rate FiO2 07/23/20 07:06 93 20 100 07/23/20 07:00 90 22 146/47 (80) 94 07/23/20 06:00 94 24 158/55 (89) 93 07/23/20 05:28 91 147/48 07/23/20 05:27 147/48 07/23/20 05:00 88 20 155/48 (83) 95 07/23/20 04:00 100 07/23/20 04:00 98.9 99 24 144/52 (82) 07/23/20 03:30 104 07/23/20 03:09 130 23 100 07/23/20 03:00 147 24 135/55 (81) 07/23/20 02:00 97 22 140/46 (77) 07/23/20 02:00 97 22 140/46 (77) 07/23/20 01:14 101 20 139/46 96 07/23/20 01:00 100 20 136/45 (75) 07/23/20 00:44 160 33 141/48 95 07/23/20 00:11 95 137/49 07/23/20 00:00 99.9 154 26 122/60 (80) 07/22/20 23:57 163 07/22/20 23:27 95 23 100 07/22/20 23:00 104 24 137/49 (78) 07/22/20 22:29 132/46 07/22/20 22:00 103 25 138/50 (79) 07/22/20 21:00 94 21 135/47 (76) 07/22/20 20:00 100 07/22/20 20:00 98.0 90 23 126/48 (74) 07/22/20 19:53 97 07/22/20 19:30 81 19 115/47 (69) 07/22/20 19:08 85 20 100 07/22/20 19:00 81 19 108/38 (61) 07/22/20 18:00 78 20 115/43 (67) 95 07/22/20 17:14 84 87/37 07/22/20 17:00 86 16 87/37 (54) 95 07/22/20 16:30 85 16 100/41 (60) 95 07/22/20 16:00 82 07/22/20 16:00 97.8 85 16 122/41 (68) 07/22/20 16:00 86 07/22/20 16:00 100 07/22/20 15:30 84 21 121/41 (67) 07/22/20 15:29 92 21 100 07/22/20 15:00 88 16 129/41 (70) 07/22/20 14:00 88 18 130/42 (71) 92 07/22/20 13:00 87 20 126/42 (70) 78 07/22/20 12:00 88 07/22/20 12:00 89 20 125/41 (69) 78 07/22/20 12:00 100 07/22/20 11:29 93 16 100 07/22/20 11:00 99.5 91 23 127/43 (71) 90 Intake and Output 07/22/20 07/23/20 19:00 07:00 Intake Total 650 ml 390 ml Output Total 2000 ml 0 ml Balance -1350 ml 390 ml Free Water 180 ml 30 ml IV Total 110 ml Tube Feeding 360 ml 360 ml Output Urine Total 0 ml 0 ml Hemodialysis UF 2000 ml # Voids 1 # Bowel Movements 1 1 Current Medications Medications (Trade) Dose Ordered Sig/Toya Route PRN Reason Start Time Stop Time Status Last Admin Dose Admin Acetaminophen (Tylenol) 500 mg Q4HR PRN ORAL For Pain 07/17/20 00:00 08/16/20 00:00 07/23/20 09:55 Acetaminophen (Tylenol) 500 mg Q8H PRN ORAL FHMP 07/16/20 22:45 08/15/20 22:44 07/21/20 17:42 Albuterol Sulfate (Proventil MDI) 2 puff Q4H PRN INH Shortness of Breath 07/16/20 19:00 10/14/20 18:59 Azithromycin (Zithromax) 250 mg DAILY ORAL 07/19/20 09:00 07/26/20 08:59 07/23/20 09:23 Ceftriaxone Sodium 1 gm/ Dextrose 55 ml @ 110 mls/hr Q24H IVPB 07/20/20 12:15 07/27/20 12:14 07/22/20 13:00 Chlorhexidine Gluconate (Yessi-Hex 2%) 1 applic DAILY@2000 TOPIC 07/21/20 20:00 10/19/20 19:59 07/22/20 20:43 Clonidine HCl (Catapres Tab) 0.1 mg Q4H PRN NG bp over 165 syst 07/21/20 12:00 10/14/20 22:44 Dexamethasone Sodium Phosphate (Decadron 10mg/ ml Inj) 6 mg DAILY IV 07/20/20 12:15 07/29/20 09:01 07/23/20 09:22 Dextrose (Dextrose 50%) 25 ml Q30M PRN IV Hypoglycemia 07/22/20 08:00 10/20/20 07:59 Dextrose (Dextrose 50%) 50 ml Q30M PRN IV Hypoglycemia 07/22/20 08:00 10/20/20 07:59 Diltiazem HCl (Cardizem Tab) 60 mg EVERY 6 HOURS NG 07/21/20 18:00 08/16/20 13:59 07/23/20 05:28 Docusate Sodium (Colace) 100 mg THREE TIMES A DAY NG 07/21/20 13:00 08/20/20 12:59 07/22/20 17:41 Haloperidol Lactate (Haldol) 5 mg Q6H PRN IM Agitation 07/17/20 17:30 08/31/20 17:29 07/18/20 21:34 Hydralazine HCl (Apresoline) 50 mg EVERY 8 HOURS NG 07/21/20 22:00 10/15/20 05:59 07/23/20 05:27 Insulin Aspart (NovoLOG) Q6HR SUBQ 07/22/20 08:15 10/20/20 11:29 07/23/20 00:00 Insulin Detemir (Levemir) 15 units Q12HR SUBQ 07/22/20 10:00 10/20/20 09:59 07/22/20 21:07 Lorazepam (Ativan 2mg/ml 1ml) 1 mg Q4H PRN IV For Anxiety 07/20/20 22:15 07/27/20 22:14 07/23/20 00:44 Pantoprazole (Protonix) 40 mg EVERY 12 HOURS IVP 07/21/20 21:00 08/20/20 20:59 07/23/20 09:22 Quetiapine Fumarate (SEROqueL) 50 mg Q12HR ORAL 07/17/20 14:00 08/31/20 13:59 07/23/20 09:23 Sodium Phosphate 10 mm/Sodium Chloride 278.3333 ml @ 92.778 m... ONCE ONCE IVPB 07/23/20 11:00 07/23/20 13:59 Laboratory Tests 07/23/20 00:13: POC Whole Blood Glucose 170H 07/23/20 04:10: White Blood Count 8.9#, Red Blood Count 2.58L, Hemoglobin 8.7L, Hematocrit 26.5L , Mean Corpuscular Volume 102H, Mean Corpuscular Hemoglobin 33.8H, Mean Corpuscular Hemoglobin Concent 33.0, Red Cell Distribution Width 14.7, Platelet Count 90L, Mean Platelet Volume 8.7, Neutrophils (%) (Auto) , Lymphocytes (%) (Auto) , Monocytes (%) (Auto) , Eosinophils (%) (Auto) , Basophils (%) (Auto) , Differential Total Cells Counted 100, Neutrophils % (Manual) 96H, Lymphocytes % (Manual) 1L, Monocytes % (Manual) 3, Eosinophils % (Manual) 0, Basophils % (Manual) 0, Band Neutrophils 0, Platelet Estimate DecreasedL, Platelet Morp hology Normal, Hypochromasia 1+, Anisocytosis 1+, Macrocytosis 1+, Sodium Level 145, Potassium Level 3.8, Chloride Level 105, Carbon Dioxide Level 36H, Anion Gap 4L, Blood Urea Nitrogen 72H, Creatinine 4.9H, Estimat Glomerular Filtration Rate 8.8, Glucose Level 140#H, Uric Acid 4.2, Calcium Level 8.6, Phosphorus Level 1.1L, Magnesium Level 2.1, Total Bilirubin 1.1H, Direct Bilirubin 0.5H, Gamma Glutamyl Transpeptidase 590H, Aspartate Amino Transf (AST/SGOT) 29, Alanine Aminotransferase (ALT/SGPT) 13, Alkaline Phosphatase 198H, Lactate Dehydrogenase 422H, C-Reactive Protein, Quantitative 43.1H, Pro-B-Type Natriuretic Peptide [Pending], Total Protein 6.3L, Albumin 2.3L 07/23/20 08:09: Arterial Blood pH 7.414, Arterial Blood Partial Pressure CO2 55.8*H, Arterial Blood Partial Pressure O2 46.3*L, Arterial Blood HCO3 34.9H, Arterial Blood Oxygen Saturation 82.8*L, Arterial Blood Base Excess 9H, Faheem Test Positive Height (Feet): 5 Height (Inches): 4.00 Weight (Pounds): 180 General Appearance: no apparent distress EENT: other - Intubated on ventilator Cardiovascular: normal rate Respiratory/Chest: decreased breath sounds Abdomen: distended Francis Falk MD Jul 23, 2020 10:53
[2020-07-23] MEDS ORDERED: Sodium Phosphate 10 MM in NS 275 ML IVPB ONE (11:00)
--- NOTE | 2020-07-23 11:00 | NUR ---
NURSE NOTES: Called [facility] for HD order to be done on 07/24/[address] Falk's order. Spoke w/ Rogers @ [facility]. Will closely monitor the patient. Will continue plan of care.
--- NOTE | 2020-07-23 11:40 | NUR ---
NURSE NOTES: Dr. Allen at the bedside assessed the patient. Notified the patient's ABG and condition. Dr. Allen ordered to repeat ABG. Informed RT for the order. Will continue plan of care.
--- NOTE | 2020-07-23 12:03 | Pulmonology Progress Note ---
Subjective ROS Limited/Unobtainable: Yes Interval Events: seen in ICU; remains intubated Constitutional: Reports: fever, other - El=600.7 HEENT: Repors: no symptoms Respiratory: Reports: no symptoms Cardiovascular: Reports: no symptoms Gastrointestinal/Abdominal: Reports: no symptoms Genitourinary: Reports: no symptoms Allergies: Coded Allergies: No Known Allergies (Unverified , 05/12/17) Objective Last 24 Hour Vital Signs Date Time Temp Pulse Resp B/P (MAP) Pulse Ox O2 Delivery O2 Flow Rate FiO2 07/23/20 07:06 93 20 100 07/23/20 07:00 90 22 146/47 (80) 94 07/23/20 06:00 94 24 158/55 (89) 93 07/23/20 05:28 91 147/48 07/23/20 05:27 147/48 07/23/20 05:00 88 20 155/48 (83) 95 07/23/20 04:00 100 07/23/20 04:00 98.9 99 24 144/52 (82) 07/23/20 03:30 104 07/23/20 03:09 130 23 100 07/23/20 03:00 147 24 135/55 (81) 07/23/20 02:00 97 22 140/46 (77) 07/23/20 02:00 97 22 140/46 (77) 07/23/20 01:14 101 20 139/46 96 07/23/20 01:00 100 20 136/45 (75) 07/23/20 00:44 160 33 141/48 95 07/23/20 00:11 95 137/49 07/23/20 00:00 99.9 154 26 122/60 (80) 07/22/20 23:57 163 07/22/20 23:27 95 23 100 07/22/20 23:00 104 24 137/49 (78) 07/22/20 22:29 132/46 07/22/20 22:00 103 25 138/50 (79) 07/22/20 21:00 94 21 135/47 (76) 07/22/20 20:00 100 07/22/20 20:00 98.0 90 23 126/48 (74) 07/22/20 19:53 97 07/22/20 19:30 81 19 115/47 (69) 07/22/20 19:08 85 20 100 07/22/20 19:00 81 19 108/38 (61) 07/22/20 18:00 78 20 115/43 (67) 95 07/22/20 17:14 84 87/37 07/22/20 17:00 86 16 87/37 (54) 95 07/22/20 16:30 85 16 100/41 (60) 95 07/22/20 16:00 82 07/22/20 16:00 97.8 85 16 122/41 (68) 07/22/20 16:00 86 07/22/20 16:00 100 07/22/20 15:30 84 21 121/41 (67) 07/22/20 15:29 92 21 100 07/22/20 15:00 88 16 129/41 (70) 07/22/20 14:00 88 18 130/42 (71) 92 07/22/20 13:00 87 20 126/42 (70) 78 Intake and Output 07/22/20 07/23/20 19:00 07:00 Intake Total 650 ml 390 ml Output Total 2000 ml 0 ml Balance -1350 ml 390 ml Free Water 180 ml 30 ml IV Total 110 ml Tube Feeding 360 ml 360 ml Output Urine Total 0 ml 0 ml Hemodialysis UF 2000 ml # Voids 1 # Bowel Movements 1 1 General Appearance: WD/WN, no acute distress, other - intubation HEENT: normocephalic Respiratory: chest wall non-tender, crackles/rales Cardiovascular: normal rate, regular rhythm Laboratory Tests 07/23/20 00:13: POC Whole Blood Glucose 170H 07/23/20 04:10: White Blood Count 8.9#, Red Blood Count 2.58L, Hemoglobin 8.7L, Hematocrit 26.5L , Mean Corpuscular Volume 102H, Mean Corpuscular Hemoglobin 33.8H, Mean Corpuscular Hemoglobin Concent 33.0, Red Cell Distribution Width 14.7, Platelet Count 90L, Mean Platelet Volume 8.7, Neutrophils (%) (Auto) , Lymphocytes (%) (Auto) , Monocytes (%) (Auto) , Eosinophils (%) (Auto) , Basophils (%) (Auto) , Differential Total Cells Counted 100, Neutrophils % (Manual) 96H, Lymphocytes % (Manual) 1L, Monocytes % (Manual) 3, Eosinophils % (Manual) 0, Basophils % (Manual) 0, Band Neutrophils 0, Platelet Estimate DecreasedL, Platelet Morphology Normal, Hypochromasia 1+, Anisocytosis 1+, Macrocytosis 1+, Sodium Level 145, Potassium Level 3.8, Chloride Level 105, Carbon Dioxide Level 36H, An ion Gap 4L, Blood Urea Nitrogen 72H, Creatinine 4.9H, Estimat Glomerular Chema tration Rate 8.8, Glucose Level 140#H, Uric Acid 4.2, Calcium Level 8.6, Phosphorus Level 1.1L, Magnesium Level 2.1, Total Bilirubin 1.1H, Direct Bilirubin 0.5H, Gamma Glutamyl Transpeptidase 590H, Aspartate Amino Transf (AST/SGOT) 29, Alanine Aminotransferase (ALT/SGPT) 13, Alkaline Phosphatase 198H , Lactate Dehydrogenase 422H, C-Reactive Protein, Quantitative 43.1H, Pro-B-Type Natriuretic Peptide [Pending], Total Protein 6.3L, Albumin 2.3L 07/23/20 08:09: Arterial Blood pH 7.414, Arterial Blood Partial Pressure CO2 55.8*H, Arterial Blood Partial Pressure O2 46.3*L, Arterial Blood HCO3 34.9H, Arterial Blood Oxygen Saturation 82.8*L, Arterial Blood Base Excess 9H, Faheem Test Positive Current Medications Medications (Trade) Dose Ordered Sig/Toya Route PRN Reason Start Time Stop Time Status Last Admin Dose Admin Acetaminophen (Tylenol) 500 mg Q4HR PRN ORAL For Pain 07/17/20 00:00 08/16/20 00:00 07/23/20 09:55 Acetaminophen (Tylenol) 500 mg Q8H PRN ORAL FHMP 07/16/20 22:45 08/15/20 22:44 07/21/20 17:42 Albuterol Sulfate (Proventil MDI) 2 puff Q4H PRN INH Shortness of Breath 07/16/20 19:00 10/14/20 18:59 Azithromycin (Zithromax) 250 mg DAILY ORAL 07/19/20 09:00 07/26/20 08:59 07/23/20 09:23 Ceftriaxone Sodium 1 gm/ Dextrose 55 ml @ 110 mls/hr Q24H IVPB 07/20/20 12:15 07/27/20 12:14 07/22/20 13:00 Chlorhexidine Gluconate (Yessi-Hex 2%) 1 applic DAILY@2000 TOPIC 07/21/20 20:00 10/19/20 19:59 07/22/20 20:43 Clonidine HCl (Catapres Tab) 0.1 mg Q4H PRN NG bp over 165 syst 07/21/20 12:00 10/14/20 22:44 Dexamethasone Sodium Phosphate (Decadron 10mg/ ml Inj) 6 mg DAILY IV 07/20/20 12:15 07/29/20 09:01 07/23/20 09:22 Dextrose (Dextrose 50%) 25 ml Q30M PRN IV Hypoglycemia 07/22/20 08:00 10/20/20 07:59 Dextrose (Dextrose 50%) 50 ml Q30M PRN IV Hypoglycemia 07/22/20 08:00 10/20/20 07:59 Diltiazem HCl (Cardizem Tab) 60 mg EVERY 6 HOURS NG 07/21/20 18:00 08/16/20 13:59 07/23/20 05:28 Docusate Sodium (Colace) 100 mg THREE TIMES A DAY NG 07/21/20 13:00 08/20/20 12:59 07/22/20 17:41 Haloperidol Lactate (Haldol) 5 mg Q6H PRN IM Agitation 07/17/20 17:30 08/31/20 17:29 07/18/20 21:34 Hydralazine HCl (Apresoline) 50 mg EVERY 8 HOURS NG 07/21/20 22:00 10/15/20 05:59 07/23/20 05:27 Insulin Aspart (NovoLOG) Q6HR SUBQ 07/22/20 08:15 10/20/20 11:29 07/23/20 00:00 Insulin Detemir (Levemir) 10 units Q12HR SUBQ 07/23/20 21:00 10/20/20 09:59 Lorazepam (Ativan 2mg/ml 1ml) 1 mg Q4H PRN IV For Anxiety 07/20/20 22:15 07/27/20 22:14 07/23/20 00:44 Pantoprazole (Protonix) 40 mg EVERY 12 HOURS IVP 07/21/20 21:00 08/20/20 20:59 07/23/20 09:22 Quetiapine Fumarate (SEROqueL) 50 mg Q12HR ORAL 07/17/20 14:00 08/31/20 13:59 07/23/20 09:23 Sodium Phosphate 10 mm/Sodium Chloride 278.3333 ml @ 92.778 m... ONCE ONCE IVPB 07/23/20 11:00 07/23/20 13:59 07/23/20 11:20 Assessment/Plan Assessment/Plan Assessment/Plan 1. COVID-19 pneumonia. 2. COPD exacerbation. 3. Pneumonia - CXR shows b/l opacities - she received decadron once which has now been discontinued 4. Hypertensive emergency. - Blood pressure controlled. 5. Leukocytosis.; improving 6. Anemia. 7. Hyponatremia.; resolved 8. Hyperkalemia.; resolved 9. Hypochloridemia.; resolved 10. Hyperglycemia. 11. ESRD, on dialysis. 12. Respiratory failure; now intubated PLAN Continue O2; currently 100% Vent; AC mode On PEEP now 15 S/p HD Will check ABG Rate 16 Steroids Defer Remdesivir choice to ID; renal failure precludes use Levy Law MD, MD Jul 23, 2020 12:03
--- NOTE | 2020-07-23 12:03 | General Progress Note ---
Subjective ROS Limited/Unobtainable: Yes Allergies: Coded Allergies: No Known Allergies (Unverified , 05/12/17) Objective Last 24 Hour Vital Signs Date Time Temp Pulse Resp B/P (MAP) Pulse Ox O2 Delivery O2 Flow Rate FiO2 07/23/20 07:06 93 20 100 07/23/20 07:00 90 22 146/47 (80) 94 07/23/20 06:00 94 24 158/55 (89) 93 07/23/20 05:28 91 147/48 07/23/20 05:27 147/48 07/23/20 05:00 88 20 155/48 (83) 95 07/23/20 04:00 100 07/23/20 04:00 98.9 99 24 144/52 (82) 07/23/20 03:30 104 07/23/20 03:09 130 23 100 07/23/20 03:00 147 24 135/55 (81) 07/23/20 02:00 97 22 140/46 (77) 07/23/20 02:00 97 22 140/46 (77) 07/23/20 01:14 101 20 139/46 96 07/23/20 01:00 100 20 136/45 (75) 07/23/20 00:44 160 33 141/48 95 07/23/20 00:11 95 137/49 07/23/20 00:00 99.9 154 26 122/60 (80) 07/22/20 23:57 163 07/22/20 23:27 95 23 100 07/22/20 23:00 104 24 137/49 (78) 07/22/20 22:29 132/46 07/22/20 22:00 103 25 138/50 (79) 07/22/20 21:00 94 21 135/47 (76) 07/22/20 20:00 100 07/22/20 20:00 98.0 90 23 126/48 (74) 07/22/20 19:53 97 07/22/20 19:30 81 19 115/47 (69) 07/22/20 19:08 85 20 100 07/22/20 19:00 81 19 108/38 (61) 07/22/20 18:00 78 20 115/43 (67) 95 07/22/20 17:14 84 87/37 07/22/20 17:00 86 16 87/37 (54) 95 07/22/20 16:30 85 16 100/41 (60) 95 07/22/20 16:00 82 07/22/20 16:00 97.8 85 16 122/41 (68) 07/22/20 16:00 86 07/22/20 16:00 100 07/22/20 15:30 84 21 121/41 (67) 07/22/20 15:29 92 21 100 07/22/20 15:00 88 16 129/41 (70) 07/22/20 14:00 88 18 130/42 (71) 92 07/22/20 13:00 87 20 126/42 (70) 78 Intake and Output 07/22/20 07/23/20 19:00 07:00 Intake Total 650 ml 390 ml Output Total 2000 ml 0 ml Balance -1350 ml 390 ml Free Water 180 ml 30 ml IV Total 110 ml Tube Feeding 360 ml 360 ml Output Urine Total 0 ml 0 ml Hemodialysis UF 2000 ml # Voids 1 # Bowel Movements 1 1 Laboratory Tests 07/23/20 00:13: POC Whole Blood Glucose 170H 07/23/20 04:10: White Blood Count 8.9#, Red Blood Count 2.58L, Hemoglobin 8.7L, Hematocrit 26.5L , Mean Corpuscular Volume 102H, Mean Corpuscular Hemoglobin 33.8H, Mean Corpuscular Hemoglobin Concent 33.0, Red Cell Distribution Width 14.7, Platelet Count 90L, Mean Platelet Volume 8.7, Neutrophils (%) (Auto) , Lymphocytes (%) (Auto) , Monocytes (%) (Auto) , Eosinophils (%) (Auto) , Basophils (%) (Auto) , Differential Total Cells Counted 100, Neutrophils % (Manual) 96H, Lymphocytes % (Manual) 1L, Monocytes % (Manual) 3, Eosinophils % (Manual) 0, Basophils % (Ma nual) 0, Band Neutrophils 0, Platelet Estimate DecreasedL, Platelet Morphology Normal, Hypochromasia 1+, Anisocytosis 1+, Macrocytosis 1+, Sodium Level 145, Potassium Level 3.8, Chloride Level 105, Carbon Dioxide Level 36H, Anion Gap 4L, Blood Urea Nitrogen 72H, Creatinine 4.9H, Estimat Glomerular Filtration Rate 8.8, Glucose Level 140#H, Uric Acid 4.2, Calcium Level 8.6, Phosphorus Level 1.1L, Magnesium Level 2.1, Total Bilirubin 1.1H, Direct Bilirubin 0.5H, Gamma Glutamyl Transpeptidase 590H, Aspartate Amino Transf (AST/SGOT) 29, Alanine Aminotransferase (ALT/SGPT) 13, Alkaline Phosphatase 198H, Lactate Dehydrogenase 422H, C-Reactive Protein, Quantitative 43.1H, Pro-B-Type Natriuretic Peptide [Pending], Total Protein 6.3L, Albumin 2.3L 07/23/20 08:09: Arterial Blood pH 7.414, Arterial Blood Partial Pressure CO2 55.8*H, Arterial Blood Partial Pressure O2 46.3*L, Arterial Blood HCO3 34.9H, Arterial Blood Oxygen Saturation 82.8*L, Arterial Blood Base Excess 9H, Faheem Test Positive Height (Feet): 5 Height (Inches): 4.00 Weight (Pounds): 180 Assessment/Plan Problem List: (1) Pneumonia ICD Codes: J18.9 - Pneumonia, unspecified organism SNOMED: 984178775 (2) Hypertension ICD Codes: I10 - Essential (primary) hypertension SNOMED: 11468690 (3) Renal failure ICD Codes: N19 - Unspecified kidney failure SNOMED: 41556137 (4) Anemia in chronic kidney disease (CKD) ICD Codes: N18.9 - Chronic kidney disease, unspecified; D63.1 - Anemia in chronic kidney disease SNOMED: 684654169 (5) weakness (6) ESRD (end stage renal disease) ICD Codes: N18.6 - End stage renal disease SNOMED: 32564428 (7) Diabetic nephropathy with proteinuria ICD Codes: E11.21 - Type 2 diabetes mellitus with diabetic nephropathy SNOMED: 35391281, 965744598 Status: deteriorating Assessment/Plan: intubated copd niddm htn esrd on hd resp failure niddm covid positive pna copd Makenna Daniel MD Jul 23, 2020 12:03
--- NOTE | 2020-07-23 12:09 | Cardiac Electrophysiology PN ---
Assessment/Plan Assessment/Plan 1. Accelerated hypertension. On hydralazine 50 mg q6h, Cardizem 90 mg tid, HD and p.r.n.clonidine. EF 40- 45% 2. Severe hyperkalemia. No cardiac arrhythmia was noted despite potassium of 6.8. Currently in sinus rhythm. On hemodialysis under management of Dr. Falk. 3. End-stage renal disease, now on hemodialysis. 4. Hyponatremia, sodium 129. Fluid restriction per Dr. Falk. 5. Volume overload, BNP of more than 35,000 and EF 40-45%. On HD 6. Covid PNA and resp failure on the VEnt with 100% Fio2 Covid positive 07/11 and 07/17 DW RN Subjective Subjective Confused in restraints. In Covid isolation. Intubated on 100% fIO2 AND PEEP 5. Had 2 liter HD yesterday Objective Last 24 Hour Vital Signs Date Time Temp Pulse Resp B/P (MAP) Pulse Ox O2 Delivery O2 Flow Rate FiO2 07/23/20 10:50 96 24 100 07/23/20 07:06 93 20 100 07/23/20 07:00 90 22 146/47 (80) 94 07/23/20 06:00 94 24 158/55 (89) 93 07/23/20 05:28 91 147/48 07/23/20 05:27 147/48 07/23/20 05:00 88 20 155/48 (83) 95 07/23/20 04:00 100 07/23/20 04:00 98.9 99 24 144/52 (82) 07/23/20 03:30 104 07/23/20 03:09 130 23 100 07/23/20 03:00 147 24 135/55 (81) 07/23/20 02:00 97 22 140/46 (77) 07/23/20 02:00 97 22 140/46 (77) 07/23/20 01:14 101 20 139/46 96 07/23/20 01:00 100 20 136/45 (75) 07/23/20 00:44 160 33 141/48 95 07/23/20 00:11 95 137/49 07/23/20 00:00 99.9 154 26 122/60 (80) 07/22/20 23:57 163 07/22/20 23:27 95 23 100 07/22/20 23:00 104 24 137/49 (78) 07/22/20 22:29 132/46 07/22/20 22:00 103 25 138/50 (79) 07/22/20 21:00 94 21 135/47 (76) 07/22/20 20:00 100 07/22/20 20:00 98.0 90 23 126/48 (74) 07/22/20 19:53 97 07/22/20 19:30 81 19 115/47 (69) 07/22/20 19:08 85 20 100 07/22/20 19:00 81 19 108/38 (61) 07/22/20 18:00 78 20 115/43 (67) 95 07/22/20 17:14 84 87/37 07/22/20 17:00 86 16 87/37 (54) 95 07/22/20 16:30 85 16 100/41 (60) 95 07/22/20 16:00 82 07/22/20 16:00 97.8 85 16 122/41 (68) 07/22/20 16:00 86 07/22/20 16:00 100 07/22/20 15:30 84 21 121/41 (67) 07/22/20 15:29 92 21 100 07/22/20 15:00 88 16 129/41 (70) 07/22/20 14:00 88 18 130/42 (71) 92 07/22/20 13:00 87 20 126/42 (70) 78 Intake and Output 07/22/20 07/23/20 19:00 07:00 Intake Total 650 ml 390 ml Output Total 2000 ml 0 ml Balance -1350 ml 390 ml Free Water 180 ml 30 ml IV Total 110 ml Tube Feeding 360 ml 360 ml Output Urine Total 0 ml 0 ml Hemodialysis UF 2000 ml # Voids 1 # Bowel Movements 1 1 Laboratory Tests Test 07/23/20 00:13 07/23/20 04:10 07/23/20 08:09 POC Whole Blood Glucose 170 MG/DL (74-106) H White Blood Count 8.9 K/UL (4.8-10.8) # Red Blood Count 2.58 M/UL (4.20-5.40) L Hemoglobin 8.7 G/DL (12.0-16.0) L Hematocrit 26.5 % (37.0-47.0) L Mean Corpuscular Volume 102 FL (80-99) H Mean Corpuscular Hemoglobin 33.8 PG (27.0-31.0) H Mean Corpuscular Hemoglobin Concent 33.0 G/DL (32.0-36.0) Red Cell Distribution Width 14.7 % (11.6-14.8) Platelet Count 90 K/UL (150-450) L Mean Platelet Volume 8.7 FL (6.5-10.1) Neutrophils (%) (Auto) % (45.0-75.0) Lymphocytes (%) (Auto) % (20.0-45.0) Monocytes (%) (Auto) % (1.0-10.0) Eosinophils (%) (Auto) % (0.0-3.0) Basophils (%) (Auto) % (0.0-2.0) Differential Total Cells Counted 100 Neutrophils % (Manual) 96 % (45-75) H Lymphocytes % (Manual) 1 % (20-45) L Monocytes % (Manual) 3 % (1-10) Eosinophils % (Manual) 0 % (0-3) Basophils % (Manual) 0 % (0-2) Band Neutrophils 0 % (0-8) Platelet Estimate Decreased L Platelet Morphology Normal Hypochromasia 1+ Anisocytosis 1+ Macrocytosis 1+ Sodium Level 145 MMOL/L (136-145) Potassium Level 3.8 MMOL/L (3.5-5.1) Chloride Level 105 MMOL/L (98-107) Carbon Dioxide Level 36 MMOL/L (21-32) H Anion Gap 4 mmol/L (5-15) L Blood Urea Nitrogen 72 mg/dL (7-18) H Creatinine 4.9 MG/DL (0.55-1.30) H Estimat Glomerular Filtration Rate 8.8 mL/min (>60) Glucose Level 140 MG/DL (74-106) #H Uric Acid 4.2 MG/DL (2.6-7.2) Calcium Level 8.6 MG/DL (8.5-10.1) Phosphorus Level 1.1 MG/DL (2.5-4.9) L Magnesium Level 2.1 MG/DL (1.8-2.4) Total Bilirubin 1.1 MG/DL (0.2-1.0) H Direct Bilirubin 0.5 MG/DL (0.0-0.3) H Gamma Glutamyl Transpeptidase 590 U/L (5-85) H Aspartate Amino Transf (AST/SGOT) 29 U/L (15-37) Alanine Aminotransferase (ALT/SGPT) 13 U/L (12-78) Alkaline Phosphatase 198 U/L (46-116) H Lactate Dehydrogenase 422 U/L (81-234) H C-Reactive Protein, Quantitative 43.1 mg/dL (0.00-0.90) H Pro-B-Type Natriuretic Peptide Pending Total Protein 6.3 G/DL (6.4-8.2) L Albumin 2.3 G/DL (3.4-5.0) L Arterial Blood pH 7.414 (7.350-7.450) Arterial Blood Partial Pressure CO2 55.8 mmHg (35.0-45.0) *H Arterial Blood Partial Pressure O2 46.3 mmHg (75.0-100.0) Arterial Blood HCO3 34.9 mmol/L (22.0-26.0) H Arterial Blood Oxygen Saturation 82.8 % (95-100) *L Arterial Blood Base Excess 9 (-2-2) H Faheem Test Positive Objective HEAD AND NECK: Showed no JVD.Orally intubated LUNGS: Coarse rhonchi. CARDIOVASCULAR: Regular S1 and S2 with no gallop or murmur. ABDOMEN: Soft. EXTREMITIES: No pitting edema. Zev Gatica MD Jul 23, 2020 12:09
--- NOTE | 2020-07-23 12:20 | NUR ---
NURSE NOTES: Repeat ABG result was notified to Dr. Allen. No new order at this time. Will closely monitor the patient. Will continue plan of care.
--- NOTE | 2020-07-23 12:30 | NUR ---
NURSE NOTES: BS 129 noted. No Novolog coverage per protocol. Will closely monitor the patient. Will continue plan of care.
[2020-07-23] MEDS ORDERED: Etomidate 40mg/20ml Inj IV ONE (12:40)
[2020-07-23] MEDS ORDERED: Rocuronium Bromide 50mg/5ml Inj IV ONE (12:40)
[2020-07-23] MEDS: cefTRIAXone 1 GM in D5W 55 ML IVPB SCH (12:42)
--- NOTE | 2020-07-23 14:00 | NUR ---
NURSE NOTES: The patient is resting on the bed but still has mild agitation and restlessness. Tolerating tube feeding and vent setting well. Will closely monitor the patient. Will continue plan of care.
--- NOTE | 2020-07-23 16:00 | NUR ---
NURSE NOTES: Bed bath given to the patient. The patient tolerated well. Will closely monitor the patient. Will continue plan of care.
--- NOTE | 2020-07-23 16:15 | NUR ---
CASE MANAGEMENT:REVIEW 07/23/20 SI: COVID PNA. COPD. ESRD RESPIRATORY FAILURE ~ INTUBATED 99.2 94 21 140/46 94% ON VENT SUPPROT W/100% FIO2 H/H-8.7/26.5 PLT-90 PCO2+55.8 PO2-55.7 HCO3+30.7 O2 SAT -84.4 IS: IV K-PHOS X1 IV DECADRON Q24 IV ROCEPHIN Q24 AZITHROMYCIN NG QD HYDRALAZINE NG Q8HRS IV PROTONIX Q12 CARDIZEM NG Q6HRS : ICU STATUS DCP: FROM HOME WITH OUTPT DIALYSIS
--- NOTE | 2020-07-23 17:51 | General Progress Note ---
Subjective Allergies: Coded Allergies: No Known Allergies (Unverified , 05/12/17) Subjective above noted d/w daughter re GIB patient has had multiple EGD and Colonoscopies this year daughter not interested in another GI procedure at this time understands gravity of patient's poor health Objective Last 24 Hour Vital Signs Date Time Temp Pulse Resp B/P (MAP) Pulse Ox O2 Delivery O2 Flow Rate FiO2 07/23/20 17:38 97 163/52 07/23/20 17:00 95 23 156/58 (90) 99 07/23/20 16:00 110 07/23/20 16:00 100 07/23/20 16:00 99 26 155/49 (84) 98 07/23/20 15:00 98 22 151/55 (87) 98 07/23/20 14:45 105 25 100 07/23/20 14:00 93 20 137/47 (77) 100 07/23/20 13:36 145/53 07/23/20 13:00 87 16 141/45 (77) 100 07/23/20 12:42 91 140/47 07/23/20 12:00 94 07/23/20 12:00 100 07/23/20 12:00 94 21 140/46 (77) 94 07/23/20 11:00 94 25 132/57 (82) 94 07/23/20 10:50 96 24 100 07/23/20 10:00 91 22 138/40 (72) 100 07/23/20 09:00 90 19 141/46 (77) 94 07/23/20 08:00 98.0 91 20 138/45 (76) 94 07/23/20 08:00 91 07/23/20 08:00 100 07/23/20 07:06 93 20 100 07/23/20 07:00 90 22 146/47 (80) 94 07/23/20 06:00 94 24 158/55 (89) 93 07/23/20 05:28 91 147/48 07/23/20 05:27 147/48 07/23/20 05:00 88 20 155/48 (83) 95 07/23/20 04:00 100 07/23/20 04:00 98.9 99 24 144/52 (82) 07/23/20 03:30 104 07/23/20 03:09 130 23 100 07/23/20 03:00 147 24 135/55 (81) 07/23/20 02:00 97 22 140/46 (77) 07/23/20 02:00 97 22 140/46 (77) 07/23/20 01:14 101 20 139/46 96 07/23/20 01:00 100 20 136/45 (75) 07/23/20 00:44 160 33 141/48 95 07/23/20 00:11 95 137/49 07/23/20 00:00 99.9 154 26 122/60 (80) 07/22/20 23:57 163 07/22/20 23:27 95 23 100 07/22/20 23:00 104 24 137/49 (78) 07/22/20 22:29 132/46 07/22/20 22:00 103 25 138/50 (79) 07/22/20 21:00 94 21 135/47 (76) 07/22/20 20:00 100 07/22/20 20:00 98.0 90 23 126/48 (74) 07/22/20 19:53 97 07/22/20 19:30 81 19 115/47 (69) 07/22/20 19:08 85 20 100 07/22/20 19:00 81 19 108/38 (61) 07/22/20 18:00 78 20 115/43 (67) 95 Intake and Output 07/22/20 07/23/20 19:00 07:00 Intake Total 650 ml 390 ml Output Total 2000 ml 0 ml Balance -1350 ml 390 ml Free Water 180 ml 30 ml IV Total 110 ml Tube Feeding 360 ml 360 ml Output Urine Total 0 ml 0 ml Hemodialysis UF 2000 ml # Voids 1 # Bowel Movements 1 1 Laboratory Tests 07/23/20 00:13: POC Whole Blood Glucose 170H 07/23/20 04:10: White Blood Count 8.9#, Red Blood Count 2.58L, Hemoglobin 8.7L, Hematocrit 26.5L , Mean Corpuscular Volume 102H, Mean Corpuscular Hemoglobin 33.8H, Mean Corpuscular Hemoglobin Concent 33.0, Red Cell Distribution Width 14.7, Platelet Count 90L, Mean Platelet Volume 8.7, Neutrophils (%) (Auto) , Lymphocytes (%) (Auto) , Monocytes (%) (Auto) , Eosinophils (%) (Auto) , Basophils (%) (Auto) , Differential Total Cells Counted 100, Neutrophils % (Manual) 96H, Lymphocytes % (Manual) 1L, Monocytes % (Manual) 3, Eosinophils % (Manual) 0, Basophils % (Manual) 0, Band Neutrophils 0, Platelet Estimate DecreasedL, Platelet Morphology Normal, Hypochromasia 1+, Anisocytosis 1+, Macrocytosis 1+, Sodium Level 145, Potassium Level 3.8, Chloride Level 105, Carbon Dioxide Level 36H, Anion Gap 4L, Blood Urea Nitrogen 72H, Creatinine 4.9H, Estimat Glomerular Filtration Rate 8.8, Glucose Level 140#H, Uric Acid 4.2, Calcium Level 8.6, Phosphorus Level 1.1L, Magnesium Level 2.1, Total Bilirubin 1.1H, Direct Bilirubin 0.5H, Gamma Glutamyl Transpeptidase 590H, Aspartate Amino Transf (AST/SGOT) 29, Alanine Aminotransferase (ALT/SGPT) 13, Alkaline Phosphatase 198H , Lactate Dehydrogenase 422H, C-Reactive Protein, Quantitative 43.1H, Pro-B-Type Natriuretic Peptide [Pending], Total Protein 6.3L, Albumin 2.3L 07/23/20 08:09: Arterial Blood pH 7.414, Arterial Blood Partial Pressure CO2 55.8*H, Arterial Blood Partial Pressure O2 46.3*L, Arterial Blood HCO3 34.9H, Arterial Blood Oxygen Saturation 82.8*L, Arterial Blood Base Excess 9H, Faheem Test Positive 07/23/20 12:08: Arterial Blood pH 7.342L, Arterial Blood Partial Pressure CO2 57.9*H, Arterial Blood Partial Pressure O2 55.7L, Arterial Blood HCO3 30.7H, Arterial Blood O xygen Saturation 84.4*L, Arterial Blood Base Excess 4.1H, Faheem Test Positive Height (Feet): 5 Height (Inches): 4.00 Weight (Pounds): 180 Objective E[place]ely woman on vent NCAT coarse BS RR abd soft no edema Assessment/Plan Status: deteriorating Assessment/Plan: Assessment - Recurrent GI bleed - anemia - s/p multiple endoscopies and colonoscopies this year - resp failure - COPD - COVID PNA - abnormal LFT - presumed COVID related - DM - Poor Px Recommendations - PPI BID - Tube feeds - follow labs - HD - No plans for endoscopy per discussion with family Ramakrishna Leonard MD Jul 23, 2020 17:51
--- NOTE | 2020-07-23 18:00 | NUR ---
NURSE NOTES: BS 254 noted. Novolog administered per protocol. Other medications administered per order. The patient tolerated well. Will closely monitor the patient. Will continue plan of care.
--- NOTE | 2020-07-23 19:30 | NUR ---
NURSE HAND-OFF REPORT: Important Events on Shift: Increased PEEP to 15 due to abnormal ABG, otherwise stable Patient Status: Stable, Full code Diet: OGT Nephro @ 30mL/hr Pending Orders: HD to be done on 07/24 Pending Results/Labs: N Pending notification: N Latest Vital Signs: Temperature 99.9 , Pulse 108 , B/P 136 /66 , Respiratory Rate 22 , O2 SAT 96 , Nasal Cannula, O2 Flow Rate 3.0 . Vital Sign Comment: Stable EKG Rhythm: Sinus Tachycardia Rhythm change?: N MD Notified?: Roxanne Gatica MD Response: Latest Elizabeth Fall Score: 50 Fall Risk: High Risk Safety Measures: Call light Within Reach, Bed Alarm Zone 2, Side Rails Side Rails x2, Bed position Low and Locked. Fall Precautions: Yellow Socks Yellow Gown Door Sign Patient Fall Education Report given to SIDNEY Kemp. The patient is stable at this time. Endorsed plan of care.
--- NOTE | 2020-07-23 19:31 | NUR ---
NURSE NOTES: received pt from Gloria LITTLE., pt is awake and resting on the bed. AOx 0. tarper shows ST at this time. ET size 7.5 lip line 24cm AC 16 TV 500 Fio2 100 P15 at this time. O2sat is at 98% no SOB noted. Gtube site intact, clean, and patent, no residual noted. left upper arm AV shunt noted for HD. bruit and thrill noted. right femoral TLC site intact, clean, and patent. bilateral soft wrist restrain present pulse noted, skin intact, and no edema. ABD soft, large, and non-tender. no active bleeding noted at this time. call light within reach. will continue to monitor pt with plan of care. bed at the lowest position, alarmed, and locked. Addendum: 07/24/20 at 0727 by RUBIO CLEANING RN NURSE NOTES: received pt from Gloria HAQUE, pt is awake and resting on the bed. AOx 0. tarper shows ST at this time. ET size 7.5 lip line 24cm AC 16 TV 500 Fio2 100 P15 at this time. O2sat is at 98% no SOB noted. OGT site intact, clean, and patent, no residual noted. left upper arm AV shunt noted for HD. bruit and thrill noted. right femoral TLC site intact, clean, and patent. bilateral soft wrist restrain present pulse noted, skin intact, and no edema. ABD soft, large, and non-tender. no active bleeding noted at this time. call light within reach. will continue to monitor pt with plan of care. bed at the lowest position, alarmed, and locked.
[2020-07-23] MEDS ORDERED: Tubing IV Secondary IV ONE (19:38)
[2020-07-23] MEDS ORDERED: Sterile Water Irrig 1000ml IRRIG ONE (19:38)
[2020-07-23] MEDS ORDERED: NS 275ml ONE (19:38)
[2020-07-23] MEDS: Dyna-Hex 2% Top Sol 2oz TOPIC SCH (20:50)
[2020-07-23] MEDS ORDERED: Levemir Flexpen SUBQ SCH (21:00)
--- NOTE | 2020-07-23 21:30 | NUR ---
NURSE NOTES: pt is moving inside the bed. no SOB noted. O2 sat is at 96%. call light within reach.
--- NOTE | 2020-07-23 22:51 | Psychiatric Progress Note ---
Psychiatry Progress Note Psychiatry Progress Note Medications Current Medications Medications (Trade) Dose Ordered Sig/Toya Route PRN Reason Start Time Stop Time Status Last Admin Dose Admin Acetaminophen (Tylenol) 500 mg Q4HR PRN ORAL For Pain 07/17/20 00:00 08/16/20 00:00 07/23/20 17:40 Acetaminophen (Tylenol) 500 mg Q8H PRN ORAL FHMP 07/16/20 22:45 08/15/20 22:44 07/21/20 17:42 Albuterol Sulfate (Proventil MDI) 2 puff Q4H PRN INH Shortness of Breath 07/16/20 19:00 10/14/20 18:59 Azithromycin (Zithromax) 250 mg DAILY ORAL 07/19/20 09:00 07/26/20 08:59 07/23/20 09:23 Ceftriaxone Sodium 1 gm/ Dextrose 55 ml @ 110 mls/hr Q24H IVPB 07/20/20 12:15 07/27/20 12:14 07/23/20 12:42 Chlorhexidine Gluconate (Yessi-Hex 2%) 1 applic DAILY@2000 TOPIC 07/21/20 20:00 10/19/20 19:59 07/23/20 20:50 Clonidine HCl (Catapres Tab) 0.1 mg Q4H PRN NG bp over 165 syst 07/21/20 12:00 10/14/20 22:44 Dexamethasone Sodium Phosphate (Decadron 10mg/ ml Inj) 6 mg DAILY IV 07/20/20 12:15 07/29/20 09:01 07/23/20 09:22 Dextrose (Dextrose 50%) 25 ml Q30M PRN IV Hypoglycemia 07/22/20 08:00 10/20/20 07:59 Dextrose (Dextrose 50%) 50 ml Q30M PRN IV Hypoglycemia 07/22/20 08:00 10/20/20 07:59 Diltiazem HCl (Cardizem Tab) 60 mg EVERY 6 HOURS NG 07/21/20 18:00 08/16/20 13:59 07/23/20 17:38 Docusate Sodium (Colace) 100 mg THREE TIMES A DAY NG 07/21/20 13:00 08/20/20 12:59 07/22/20 17:41 Haloperidol Lactate (Haldol) 5 mg Q6H PRN IM Agitation 07/17/20 17:30 08/31/20 17:29 07/18/20 21:34 Hydralazine HCl (Apresoline) 50 mg EVERY 8 HOURS NG 07/21/20 22:00 10/15/20 05:59 07/23/20 22:26 Insulin Aspart (NovoLOG) Q6HR SUBQ 07/22/20 08:15 10/20/20 11:29 07/23/20 17:39 Insulin Detemir (Levemir) 10 units Q12HR SUBQ 07/23/20 21:00 10/20/20 09:59 07/23/20 21:25 Lorazepam (Ativan 2mg/ml 1ml) 1 mg Q4H PRN IV For Anxiety 07/20/20 22:15 07/27/20 22:14 07/23/20 00:44 Pantoprazole (Protonix) 40 mg EVERY 12 HOURS IVP 07/21/20 21:00 08/20/20 20:59 07/23/20 20:50 Quetiapine Fumarate (SEROqueL) 50 mg Q12HR ORAL 07/17/20 14:00 08/31/20 13:59 07/23/20 20:50 Neurological/Psychiatric: Reports: anxiety, depressed, emotional problems; Denies: no symptoms, headache, numbness, paresthesia, pre-existing deficit, seizure, tingling, tremors, weakness, other Allergies: Coded Allergies: No Known Allergies (Unverified , 05/12/17) Objective Data Height (Feet): 5 Height (Inches): 4.00 Weight (Pounds): 180 General Appearance: no apparent distress Additional Comments: MENTAL STATUS EXAMINATION: The patient is having waxing and waning consciousness. Mood is irritable and anxious. Affect is blunted, congruent with mood. Thought process is concrete. Thought content, no suicidal or homicidal ideation. Cognition is impaired. Insight and judgment is impaired. Assessment/Plan [place] I: ASSESSMENT: [place] I Acute toxic encephalopathy. [place] II Deferred. [place] III COVID-19. [place] IV Low. [place] V 20. PLAN: 1. We will start the patient on low dose of antipsychotics. 2. restraints. 3. Discussed with the nurse. Status: deteriorating Status Narrative ASSESSMENT: [place] I Acute toxic encephalopathy. [place] II Deferred. [place] III COVID-19. [place] IV Low. [place] V 20. PLAN: 1. We will start the patient on low dose of antipsychotics. 2. restraints. 3. Discussed with the nurse. Assessment/Plan: ASSESSMENT: [place] I Acute toxic encephalopathy. [place] II Deferred. [place] III COVID-19. [place] IV Low. [place] V 20. PLAN: 1. We will start the patient on low dose of antipsychotics. 2. restraints. 3. Discussed with the nurse. Alecia Collins MD Jul 23, 2020 22:51
--- NOTE | 2020-07-23 23:30 | NUR ---
NURSE NOTES: repositioned pt Q2 hrs. vitals are stable condition. pt is sleeping at this time. call light within reach. no active bleeidng noted. no BM noted.
[2020-07-24] VITALS (23 sets, daily range): BP systolic 102–153; BP diastolic 39–99
--- NOTE | 2020-07-24 01:30 | NUR ---
NURSE NOTES: pt is awake and restless a bit at this time. explained criteria of removing restrains, but reinforce need. call light within reach.
[2020-07-24] MEDS: NovoLOG Insulin Flexpen SUBQ SCH ×4 (01:32→17:57)
--- NOTE | 2020-07-24 03:30 | NUR ---
NURSE NOTES: cleaned pt, oral care given. ET tube in place , no SOB noted. provided new gown, new pillows. bed at the lowest position. will continue to monitor pt.
[2020-07-24] MEDS: Acetaminophen 500mg (ES) tab ORAL PRN ×2 (03:39→19:03)
--- NOTE | 2020-07-24 03:39 | NUR ---
NURSE NOTES: cooling measure applied, tyenol given. will keep monitor pt closely.
--- NOTE | 2020-07-24 04:51 | NUR ---
NURSE NOTES: O2sat is now at 100%, no SOB noted. SR in teletypesetter monitor. cooling measure applied due to pt's low grade fever. and tyenol given for pain.
[2020-07-24 05:10] LABS: HEMATOCRIT 25.6 % (37.0-47.0); HEMOGLOBIN 8.7 G/DL (12.0-16.0); MEAN CORPUSCULAR VOLUME 102 FL (80-99); PLATELET COUNT 104 K/UL (150-450); RED BLOOD COUNT 2.51 M/UL (4.20-5.40); RED CELL DISTRIBUTION WIDTH 15.4 % (11.6-14.8); WHITE BLOOD COUNT 11.3 K/UL (4.8-10.8)
[2020-07-24 05:47] LABS: ALANINE AMINOTRANSFERASE 10 U/L (12-78); ALBUMIN 2.2 G/DL (3.4-5.0); ALBUMIN/GLOBULIN RATIO 0.5 (1.0-2.7); ALKALINE PHOSPHATASE 189 U/L (46-116); ANION GAP 8 mmol/L (5-15); ASPARTATE AMINO TRANSFERASE 26 U/L (15-37); BLOOD UREA NITROGEN 106 mg/dL (7-18); CALCIUM 8.8 MG/DL (8.5-10.1); CARBON DIOXIDE 33 MMOL/L (21-32); CHLORIDE 102 MMOL/L (98-107); CREATININE 6.5 MG/DL (0.55-1.30); PHOSPHORUS 1.9 MG/DL (2.5-4.9); POTASSIUM 4.7 MMOL/L (3.5-5.1); SODIUM 143 MMOL/L (136-145)
[2020-07-24] MEDS: dilTIAZem HCl 60mg tab NG SCH ×3 (06:00→21:34)
[2020-07-24] MEDS: HydrALAZINE 50mg tab NG SCH (06:00)
--- NOTE | 2020-07-24 06:00 | NUR ---
NURSE NOTES: pt is resting comfortably at the bed. no s/s of pain at this time.
--- NOTE | 2020-07-24 06:56 | Hematology/Onc Progress Note ---
Assessment/Plan Assessment/Plan Assessment/Plan 1. Pancytopenia with hx anemia due to underlying chronic disease. Have reviewed prior workup, ferritin is >1000, covid19++++ --> Continue to closely monitor. --> Transfuse if hgb <7 --> ferritin is >1000 --> give epogen, has been started 3x a week --> as per renal --> monitor for gi bleed, gi consulted --> hgb trend 7.8-->9.3->8.9->>11-->9.5->8.9 --> plt 42-->50-->65-->104 --> smear has been reviewed --> hep and hiv neg 2. Leukopenia likely reactive process v infection v from meds --> hepatitis and hiv prior negative --> neutropenic precautions if ANC <1500 --> trending stable --> imaging reviewed and no hsm / cirrhosis noted --> wbc 2.7-->3.6->>>2->5-->8 --> ANC goal >1500 3. End-stage renal disease, on hemodialysis three times a week. --> renal consulted --> continue hd 4. History of coronary artery disease. --> cards reviewed --> diuresis prn 5. History of anemia due to low B12, low iron --> b12 is currently within normal limits --> reobtain q6mo 6. Dizziness and unsteady gait 7. Covid 19 --> rx per id 8. DVt ppsx with SCDs Greatly appreciate consultation and Selvin RN Subjective Constitutional: Denies: no symptoms, chills, fever, malaise, weakness, other HEENT: Denies: no symptoms, eye pain, blurred vision, tearing, double vision, ear pain, ear discharge, nose pain, nose congestion, throat pain, throat swelling, mouth pain, mouth swelling, other Cardiovascular: Denies: no symptoms, chest pain, edema, irregular heart rate, lightheadedness, palpitations, syncope, other Neurologic/Psychiatric: Denies: no symptoms, anxiety, depressed, emotional problems, headache, numbness, paresthesia, pre-existing deficit, seizure, tingling, tremors, weakness, other Allergies: Coded Allergies: No Known Allergies (Unverified , 05/12/17) Subjective 07/19 meds noted, s/p hd, bp has improved, no bleeding, labs reviewed 07/20 labs are noted, no bleeding, meds reviewed, no major changes, hgb 9.5 07/22 remains in the icu, no bleeding, meds reviewed, on nc 07/23 labs noted, no bleeding, in icu, hgb 8.7, plt 90 07/24 is intubated, hgb 11, no bleeding, plt are better, meds reviewed Objective Objective Current Medications Medications (Trade) Dose Ordered Sig/Toya Route PRN Reason Start Time Stop Time Status Last Admin Dose Admin Acetaminophen (Tylenol) 500 mg Q4HR PRN ORAL For Pain 07/17/20 00:00 08/16/20 00:00 07/24/20 03:39 Acetaminophen (Tylenol) 500 mg Q8H PRN ORAL FHMP 07/16/20 22:45 08/15/20 22:44 07/21/20 17:42 Albuterol Sulfate (Proventil MDI) 2 puff Q4H PRN INH Shortness of Breath 07/16/20 19:00 10/14/20 18:59 Azithromycin (Zithromax) 250 mg DAILY ORAL 07/19/20 09:00 07/26/20 08:59 07/23/20 09:23 Ceftriaxone Sodium 1 gm/ Dextrose 55 ml @ 110 mls/hr Q24H IVPB 07/20/20 12:15 07/27/20 12:14 07/23/20 12:42 Chlorhexidine Gluconate (Yessi-Hex 2%) 1 applic DAILY@2000 TOPIC 07/21/20 20:00 10/19/20 19:59 07/23/20 20:50 Clonidine HCl (Catapres Tab) 0.1 mg Q4H PRN NG bp over 165 syst 07/21/20 12:00 10/14/20 22:44 Dexamethasone Sodium Phosphate (Decadron 10mg/ ml Inj) 6 mg DAILY IV 07/20/20 12:15 07/29/20 09:01 07/23/20 09:22 Dextrose (Dextrose 50%) 25 ml Q30M PRN IV Hypoglycemia 07/22/20 08:00 10/20/20 07:59 Dextrose (Dextrose 50%) 50 ml Q30M PRN IV Hypoglycemia 07/22/20 08:00 10/20/20 07:59 Diltiazem HCl (Cardizem Tab) 60 mg EVERY 6 HOURS NG 07/21/20 18:00 08/16/20 13:59 07/23/20 23:32 Docusate Sodium (Colace) 100 mg THREE TIMES A DAY NG 07/21/20 13:00 08/20/20 12:59 07/22/20 17:41 Haloperidol Lactate (Haldol) 5 mg Q6H PRN IM Agitation 07/17/20 17:30 08/31/20 17:29 07/18/20 21:34 Hydralazine HCl (Apresoline) 50 mg EVERY 8 HOURS NG 07/21/20 22:00 10/15/20 05:59 07/23/20 22:26 Insulin Aspart (NovoLOG) Q6HR SUBQ 07/22/20 08:15 10/20/20 11:29 07/24/20 06:35 Insulin Detemir (Levemir) 10 units Q12HR SUBQ 07/23/20 21:00 10/20/20 09:59 07/23/20 21:25 Lorazepam (Ativan 2mg/ml 1ml) 1 mg Q4H PRN IV For Anxiety 07/20/20 22:15 07/27/20 22:14 07/23/20 00:44 Pantoprazole (Protonix) 40 mg EVERY 12 HOURS IVP 07/21/20 21:00 08/20/20 20:59 07/23/20 20:50 Quetiapine Fumarate (SEROqueL) 50 mg Q12HR ORAL 07/17/20 14:00 08/31/20 13:59 07/23/20 20:50 Last 24 Hour Vital Signs Date Time Temp Pulse Resp B/P (MAP) Pulse Ox O2 Delivery O2 Flow Rate FiO2 07/24/20 06:00 117/99 07/24/20 06:00 87 117/99 07/24/20 06:00 98.7 84 17 114/39 (64) 100 07/24/20 05:00 100 17 125/43 (70) 97 07/24/20 04:00 100 07/24/20 04:00 99.5 87 20 117/99 (105) 07/24/20 03:56 98 23 100 07/24/20 03:54 101 07/24/20 03:30 102.0 07/24/20 03:00 101 24 145/48 (80) 94 07/24/20 02:00 102 28 152/55 (87) 94 07/24/20 01:00 111 28 147/55 (85) 96 07/24/20 00:32 109 07/24/20 00:00 99.6 112 25 153/55 (87) 98 07/24/20 00:00 100 07/23/20 23:42 110 19 100 07/23/20 23:32 112 149/53 07/23/20 23:00 112 27 154/56 (88) 98 07/23/20 22:26 147/55 07/23/20 22:00 111 28 147/55 (85) 96 07/23/20 21:00 100 07/23/20 21:00 107 24 147/52 (83) 97 07/23/20 20:00 98.7 110 26 151/55 (87) 97 07/23/20 19:47 83 07/23/20 19:29 108 22 100 07/23/20 19:00 110 27 136/66 (89) 96 07/23/20 18:00 105 19 142/54 (83) 100 07/23/20 17:38 97 163/52 07/23/20 17:00 95 23 156/58 (90) 99 07/23/20 17:00 95 23 156/58 (90) 99 07/23/20 16:00 99.9 99 26 155/49 (84) 98 07/23/20 16:00 110 07/23/20 16:00 100 07/23/20 16:00 Mechanical Ventilator 07/23/20 16:00 100 07/23/20 16:00 99 26 155/49 (84) 98 07/23/20 15:00 98 22 151/55 (87) 98 07/23/20 15:00 98 22 151/55 (87) 98 07/23/20 14:45 105 25 100 07/23/20 14:00 93 20 137/47 (77) 100 07/23/20 14:00 93 20 137/47 (77) 100 07/23/20 13:36 145/53 07/23/20 13:00 87 16 141/45 (77) 100 07/23/20 13:00 87 16 141/45 (77) 100 07/23/20 12:42 91 140/47 07/23/20 12:00 99.2 94 21 140/46 (77) 94 07/23/20 12:00 94 07/23/20 12:00 100 07/23/20 12:00 100 07/23/20 12:00 Mechanical Ventilator 07/23/20 12:00 94 21 140/46 (77) 94 07/23/20 11:00 94 25 132/57 (82) 94 07/23/20 11:00 94 25 132/57 (82) 94 07/23/20 10:50 96 24 100 07/23/20 10:00 91 22 138/40 (72) 100 07/23/20 10:00 91 22 138/40 (72) 100 07/23/20 09:00 90 19 141/46 (77) 94 07/23/20 09:00 90 19 141/46 (77) 94 07/23/20 08:31 100 07/23/20 08:00 Mechanical Ventilator 07/23/20 08:00 98.0 91 20 138/45 (76) 94 07/23/20 08:00 100 07/23/20 08:00 91 07/23/20 08:00 101.0 91 20 138/45 (76) 94 07/23/20 08:00 100 07/23/20 07:06 93 20 100 07/23/20 07:00 90 22 146/47 (80) 94 07/23/20 06:00 94 24 158/55 (89) 93 07/23/20 05:28 91 147/48 07/23/20 05:27 147/48 07/23/20 05:00 88 20 155/48 (83) 95 07/23/20 04:00 100 07/23/20 04:00 98.9 99 24 144/52 (82) 07/23/20 03:30 104 07/23/20 03:09 130 23 100 07/23/20 03:00 147 24 135/55 (81) 07/23/20 02:00 97 22 140/46 (77) 07/23/20 02:00 97 22 140/46 (77) 07/23/20 01:14 101 20 139/46 96 07/23/20 01:00 100 20 136/45 (75) 07/23/20 00:44 160 33 141/48 95 07/23/20 00:11 95 137/49 07/23/20 00:00 99.9 154 26 122/60 (80) 07/22/20 23:57 163 07/22/20 23:27 95 23 100 07/22/20 23:00 104 24 137/49 (78) 07/22/20 22:29 132/46 07/22/20 22:00 103 25 138/50 (79) 07/22/20 21:00 94 21 135/47 (76) 07/22/20 20:00 100 07/22/20 20:00 98.0 90 23 126/48 (74) 07/22/20 19:53 97 07/22/20 19:30 81 19 115/47 (69) 07/22/20 19:08 85 20 100 07/22/20 19:00 81 19 108/38 (61) 07/22/20 18:00 78 20 115/43 (67) 95 07/22/20 17:14 84 87/37 07/22/20 17:00 86 16 87/37 (54) 95 07/22/20 16:30 85 16 100/41 (60) 95 07/22/20 16:00 82 07/22/20 16:00 97.8 85 16 122/41 (68) 07/22/20 16:00 86 07/22/20 16:00 100 07/22/20 15:30 84 21 121/41 (67) 07/22/20 15:29 92 21 100 07/22/20 15:00 88 16 129/41 (70) 07/22/20 14:00 88 18 130/42 (71) 92 07/22/20 13:00 87 20 126/42 (70) 78 07/22/20 12:00 88 07/22/20 12:00 89 20 125/41 (69) 78 07/22/20 12:00 100 07/22/20 11:29 93 16 100 07/22/20 11:00 99.5 91 23 127/43 (71) 90 07/22/20 10:44 99.5 07/22/20 10:00 85 23 123/46 (71) 90 07/22/20 09:00 90 21 142/44 (76) 89 07/22/20 08:00 101.7 87 23 131/48 (75) 89 07/22/20 08:00 100 07/22/20 08:00 87 07/22/20 07:19 90 23 100 07/22/20 07:17 88 23 133/51 90 07/22/20 07:00 85 20 126/40 (68) 89 Intake and Output 07/23/20 07/24/20 19:00 07:00 Intake Total 660 ml 370 ml Balance 660 ml 370 ml Free Water 150 ml 40 ml Tube Feeding 510 ml 330 ml # Voids 1 Labs Test 07/22/20 04:30 07/22/20 09:46 07/23/20 00:13 07/23/20 04:10 White Blood Count 5.3 K/UL (4.8-10.8) 8.9 K/UL (4.8-10.8) Red Blood Count 2.64 M/UL (4.20-5.40) 2.58 M/UL (4.20-5.40) Hemoglobin 8.9 G/DL (12.0-16.0) 8.7 G/DL (12.0-16.0) Hematocrit 28.5 % (37.0-47.0) 26.5 % (37.0-47.0) Mean Corpuscular Volume 108 FL (80-99) 102 FL (80-99) Mean Corpuscular Hemoglobin 33.7 PG (27.0-31.0) 33.8 PG (27.0-31.0) Mean Corpuscular Hemoglobin Concent 31.2 G/DL (32.0-36.0) 33.0 G/DL (32.0-36.0) Red Cell Distribution Width 15.6 % (11.6-14.8) 14.7 % (11.6-14.8) Platelet Count 93 K/UL (150-450) 90 K/UL (150-450) Mean Platelet Volume 7.4 FL (6.5-10.1) 8.7 FL (6.5-10.1) Neutrophils (%) (Auto) % (45.0-75.0) % (45.0-75.0) Lymphocytes (%) (Auto) % (20.0-45.0) % (20.0-45.0) Monocytes (%) (Auto) % (1.0-10.0) % (1.0-10.0) Eosinophils (%) (Auto) % (0.0-3.0) % (0.0-3.0) Basophils (%) (Auto) % (0.0-2.0) % (0.0-2.0) Differential Total Cells Counted 100 100 Neutrophils % (Manual) 94 % (45-75) 96 % (45-75) Lymphocytes % (Manual) 2 % (20-45) 1 % (20-45) Monocytes % (Manual) 4 % (1-10) 3 % (1-10) Eosinophils % (Manual) 0 % (0-3) 0 % (0-3) Basophils % (Manual) 0 % (0-2) 0 % (0-2) Band Neutrophils 0 % (0-8) 0 % (0-8) Platelet Estimate Decreased Decreased Platelet Morphology Normal Normal Polychromasia 1+ Hypochromasia 1+ 1+ Anisocytosis 1+ 1+ Macrocytosis 1+ 1+ Sodium Level 140 MMOL/L (136-145) 145 MMOL/L (136-145) Potassium Level 4.9 MMOL/L (3.5-5.1) 3.8 MMOL/L (3.5-5.1) Chloride Level 100 MMOL/L (98-107) 105 MMOL/L (98-107) Carbon Dioxide Level 27 MMOL/L (21-32) 36 MMOL/L (21-32) Anion Gap 13 mmol/L (5-15) 4 mmol/L (5-15) Blood Urea Nitrogen 104 mg/dL (7-18) 72 mg/dL (7-18) Creatinine 7.0 MG/DL (0.55-1.30) 4.9 MG/DL (0.55-1.30) Estimat Glomerular Filtration Rate 5.8 mL/min (>60) 8.8 mL/min (>60) Glucose Level 612 MG/DL (74-106) 140 MG/DL (74-106) Calcium Level 8.1 MG/DL (8.5-10.1) 8.6 MG/DL (8.5-10.1) Phosphorus Level 4.0 MG/DL (2.5-4.9) 1.1 MG/DL (2.5-4.9) Magnesium Level 2.3 MG/DL (1.8-2.4) 2.1 MG/DL (1.8-2.4) Total Bilirubin 1.2 MG/DL (0.2-1.0) 1.1 MG/DL (0.2-1.0) Direct Bilirubin 0.6 MG/DL (0.0-0.3) 0.5 MG/DL (0.0-0.3) Aspartate Amino Transf (AST/SGOT) 30 U/L (15-37) 29 U/L (15-37) Alanine Aminotransferase (ALT/SGPT) 13 U/L (12-78) 13 U/L (12-78) Alkaline Phosphatase 211 U/L (46-116) 198 U/L (46-116) Troponin I 0.834 ng/mL (0.000-0.056) C-Reactive Protein, Quantitative 21.9 mg/dL (0.00-0.90) 43.1 mg/dL (0.00-0.90) Total Protein 6.3 G/DL (6.4-8.2) 6.3 G/DL (6.4-8.2) Albumin 2.3 G/DL (3.4-5.0) 2.3 G/DL (3.4-5.0) Globulin 4.0 g/dL Albumin/Globulin Ratio 0.6 (1.0-2.7) Arterial Blood pH 7.306 (7.350-7.450) Arterial Blood Partial Pressure CO2 51.7 mmHg (35.0-45.0) Arterial Blood Partial Pressure O2 44.4 mmHg (75.0-100.0) Arterial Blood HCO3 25.2 mmol/L (22.0-26.0) Arterial Blood Oxygen Saturation 72.8 % (95-100) Arterial Blood Base Excess -1.4 (-2-2) Faheem Test Positive POC Whole Blood Glucose 170 MG/DL (74-106) Uric Acid 4.2 MG/DL (2.6-7.2) Gamma Glutamyl Transpeptidase 590 U/L (5-85) Lactate Dehydrogenase 422 U/L (81-234) Test 07/23/20 08:09 07/23/20 12:08 07/24/20 04:00 Arterial Blood pH 7.414 (7.350-7.450) 7.342 (7.350-7.450) Arterial Blood Partial Pressure CO2 55.8 mmHg (35.0-45.0) 57.9 mmHg (35.0-45.0) Arterial Blood Partial Pressure O2 46.3 mmHg (75.0-100.0) 55.7 mmHg (75.0-100.0) Arterial Blood HCO3 34.9 mmol/L (22.0-26.0) 30.7 mmol/L (22.0-26.0) Arterial Blood Oxygen Saturation 82.8 % (95-100) 84.4 % (95-100) Arterial Blood Base Excess 9 (-2-2) 4.1 (-2-2) Faheem Test Positive Positive White Blood Count 11.3 K/UL (4.8-10.8) Red Blood Count 2.51 M/UL (4.20-5.40) Hemoglobin 8.7 G/DL (12.0-16.0) Hematocrit 25.6 % (37.0-47.0) Mean Corpuscular Volume 102 FL (80-99) Mean Corpuscular Hemoglobin 34.8 PG (27.0-31.0) Mean Corpuscular Hemoglobin Concent 34.1 G/DL (32.0-36.0) Red Cell Distribution Width 15.4 % (11.6-14.8) Platelet Count 104 K/UL (150-450) Mean Platelet Volume 8.6 FL (6.5-10.1) Neutrophils (%) (Auto) % (45.0-75.0) Lymphocytes (%) (Auto) % (20.0-45.0) Monocytes (%) (Auto) % (1.0-10.0) Eosinophils (%) (Auto) % (0.0-3.0) Basophils (%) (Auto) % (0.0-2.0) Sodium Level 143 MMOL/L (136-145) Potassium Level 4.7 MMOL/L (3.5-5.1) Chloride Level 102 MMOL/L (98-107) Carbon Dioxide Level 33 MMOL/L (21-32) Anion Gap 8 mmol/L (5-15) Blood Urea Nitrogen 106 mg/dL (7-18) Creatinine 6.5 MG/DL (0.55-1.30) Estimat Glomerular Filtration Rate 6.3 mL/min (>60) Glucose Level 285 MG/DL (74-106) Calcium Level 8.8 MG/DL (8.5-10.1) Phosphorus Level 1.9 MG/DL (2.5-4.9) Magnesium Level 2.2 MG/DL (1.8-2.4) Total Bilirubin 1.0 MG/DL (0.2-1.0) Aspartate Amino Transf (AST/SGOT) 26 U/L (15-37) Alanine Aminotransferase (ALT/SGPT) 10 U/L (12-78) Alkaline Phosphatase 189 U/L (46-116) C-Reactive Protein, Quantitative 25.3 mg/dL (0.00-0.90) Total Protein 6.4 G/DL (6.4-8.2) Albumin 2.2 G/DL (3.4-5.0) Globulin 4.2 g/dL Albumin/Globulin Ratio 0.5 (1.0-2.7) Height (Feet): 5 Height (Inches): 4.00 Weight (Pounds): 180 Objective Physical Exam General Appearance: alert, obese, Chronically Ill Neck: full range of motion Respiratory: wheezing Cardiovascular: edema Gastrointestinal: normal inspection, soft Neurologic: alert, pediatric occupational therapist III-XII nml as tested Psychiatric: normal inspection, judgement/insight normal Skin: other Carl Daniels MD Jul 24, 2020 06:56
--- NOTE | 2020-07-24 07:00 | NUR ---
NURSE NOTES: notified Dr. Gatica regarding pt's SR with 1st AVB with missed beats. no new order received.
--- NOTE | 2020-07-24 07:26 | NUR ---
NURSE NOTES: endored to Malia LITTLE., regarding elevated WBC and pt's fever. need to Follow up with Dr. Finn Stanton
--- NOTE | 2020-07-24 07:27 | NUR ---
NURSE HAND-OFF REPORT: Latest Vital Signs: Temperature 98.7 , Pulse 80 , B/P 114 /39 , Respiratory Rate 16 , O2 SAT 100 , Nasal Cannula, O2 Flow Rate 3.0 . Vital Sign Comment: [stable] EKG Rhythm: Sinus Rhythm w/ 1st AVB Rhythm change?: N MD Notified?: Y -Dr. En CROFT Response: no new order Latest Elizabeth Fall Score: 50 Fall Risk: High Risk Safety Measures: Call light Within Reach, Bed Alarm Zone 2, Side Rails Side Rails x2, Bed position Low and Locked. Fall Precautions: Yellow Socks Yellow Gown Door Sign Patient Fall Education Report given to [Christopher Kelley RN].
--- NOTE | 2020-07-24 07:30 | NUR ---
NURSE NOTES: Report received from Dmitri Kemp RN.Pt asleep ,noted no resp distress ,orally intubated ,ETT7.5,lip line 24,connected to vent ,settings AC16,TV 500,FIO2 100%,Peep 15,tolerating settings well,no signs of pain or discomfort,SR on the monitor, NGTF Nepro at 30ml/hr no residual and in placed per auscultation,Pt anuric,HD sched for M-W-F,access to [place] AV shunt intact,skin warm and dry ,IV to RT Femoral TLC intact,SR up x2 HOB elevated,noted with periods of restlessness,with bilat wrist restraints in placed,bed loc in lowest position will continue with plans of care.
[2020-07-24] MEDS: Azithromycin 250mg tab ORAL SCH (08:47)
[2020-07-24] MEDS: dexAMETHasone 10mg/ml Inj IV SCH (08:47)
[2020-07-24] MEDS: Docusate 100mg/10ml Liq NG SCH ×3 (08:47→17:53)
[2020-07-24] MEDS: Pantoprazole Inj IVP SCH ×2 (08:47→21:00)
--- NOTE | 2020-07-24 09:09 | Infectious Diseases Prog Note ---
Assessment/Plan Assessment/Plan IMPRESSION: COVID-19 disease, Altered mental status and encephalopathy, End-stage renal disease on hemodialysis, COPD, Asthma, Hypertension, Pancytopenia, Diabetes mellitus with hyperglycemia, Systolic heart failure, Aortic stenosis. Hypercapnic, hypoxemic respiratory failure RECOMMENDATION: Continue dexamethasone. Change Zithromax & Rocephin to Zosyn We will follow up the cultures. Subjective ROS Limited/Unobtainable: Yes Constitutional: Reports: fever, other - [id number] Neurologic: Reports: confusion, other - on restraint Allergies: Coded Allergies: No Known Allergies (Unverified , 05/12/17) Objective Last 24 Hour Vital Signs Date Time Temp Pulse Resp B/P (MAP) Pulse Ox O2 Delivery O2 Flow Rate FiO2 07/24/20 08:00 100 07/24/20 07:15 80 16 100 07/24/20 07:00 80 16 114/39 (64) 100 07/24/20 06:00 117/99 07/24/20 06:00 87 117/99 07/24/20 06:00 98.7 84 17 114/39 (64) 100 07/24/20 05:00 100 17 125/43 (70) 97 07/24/20 04:00 100 07/24/20 04:00 99.5 87 20 117/99 (105) 07/24/20 03:56 98 23 100 07/24/20 03:54 101 07/24/20 03:30 102.0 07/24/20 03:00 101 24 145/48 (80) 94 07/24/20 02:00 102 28 152/55 (87) 94 07/24/20 01:00 111 28 147/55 (85) 96 07/24/20 00:32 109 07/24/20 00:00 99.6 112 25 153/55 (87) 98 07/24/20 00:00 100 07/23/20 23:42 110 19 100 07/23/20 23:32 112 149/53 07/23/20 23:00 112 27 154/56 (88) 98 07/23/20 22:26 147/55 07/23/20 22:00 111 28 147/55 (85) 96 07/23/20 21:00 100 07/23/20 21:00 107 24 147/52 (83) 97 07/23/20 20:00 98.7 110 26 151/55 (87) 97 07/23/20 19:47 83 07/23/20 19:29 108 22 100 07/23/20 19:00 110 27 136/66 (89) 96 07/23/20 18:00 105 19 142/54 (83) 100 07/23/20 17:38 97 163/52 07/23/20 17:00 95 23 156/58 (90) 99 07/23/20 17:00 95 23 156/58 (90) 99 07/23/20 16:00 99.9 99 26 155/49 (84) 98 07/23/20 16:00 110 07/23/20 16:00 100 07/23/20 16:00 Mechanical Ventilator 07/23/20 16:00 100 07/23/20 16:00 99 26 155/49 (84) 98 07/23/20 15:00 98 22 151/55 (87) 98 07/23/20 15:00 98 22 151/55 (87) 98 07/23/20 14:45 105 25 100 07/23/20 14:00 93 20 137/47 (77) 100 07/23/20 14:00 93 20 137/47 (77) 100 07/23/20 13:36 145/53 07/23/20 13:00 87 16 141/45 (77) 100 07/23/20 13:00 87 16 141/45 (77) 100 07/23/20 12:42 91 140/47 07/23/20 12:00 99.2 94 21 140/46 (77) 94 07/23/20 12:00 94 07/23/20 12:00 100 07/23/20 12:00 100 07/23/20 12:00 Mechanical Ventilator 07/23/20 12:00 94 21 140/46 (77) 94 07/23/20 11:00 94 25 132/57 (82) 94 07/23/20 11:00 94 25 132/57 (82) 94 07/23/20 10:50 96 24 100 07/23/20 10:00 91 22 138/40 (72) 100 07/23/20 10:00 91 22 138/40 (72) 100 Height (Feet): 5 Height (Inches): 4.00 Weight (Pounds): 180 HEENT: other - orally intubated Respiratory/Chest: other - on ventilatir Cardiovascular: normal rate, other - left arm AV graft Abdomen: soft, non tender Extremities: no edema Neurologic/Psychiatric: other - sedated Microbiology Date/Time Source Procedure Growth Status 07/23/20 03:30 Sputum Gram Stain - Final Resulted 07/23/20 03:30 Sputum Sputum Culture Pending Resulted Laboratory Tests Test 07/23/20 12:08 07/24/20 04:00 Arterial Blood pH 7.342 (7.350-7.450) Arterial Blood Partial Pressure CO2 57.9 mmHg (35.0-45.0) *H Arterial Blood Partial Pressure O2 55.7 mmHg (75.0-100.0) L Arterial Blood HCO3 30.7 mmol/L (22.0-26.0) H Arterial Blood Oxygen Saturation 84.4 % (95-100) *L Arterial Blood Base Excess 4.1 (-2-2) H Faheem Test Positive White Blood Count 11.3 K/UL (4.8-10.8) H Red Blood Count 2.51 M/UL (4.20-5.40) L Hemoglobin 8.7 G/DL (12.0-16.0) L Hematocrit 25.6 % (37.0-47.0) L Mean Corpuscular Volume 102 FL (80-99) H Mean Corpuscular Hemoglobin 34.8 PG (27.0-31.0) H Mean Corpuscular Hemoglobin Concent 34.1 G/DL (32.0-36.0) Red Cell Distribution Width 15.4 % (11.6-14.8) H Platelet Count 104 K/UL (150-450) L Mean Platelet Volume 8.6 FL (6.5-10.1) Neutrophils (%) (Auto) % (45.0-75.0) Lymphocytes (%) (Auto) % (20.0-45.0) Monocytes (%) (Auto) % (1.0-10.0) Eosinophils (%) (Auto) % (0.0-3.0) Basophils (%) (Auto) % (0.0-2.0) Neutrophils % (Manual) Pending Lymphocytes % (Manual) Pending Platelet Estimate Pending Platelet Morphology Pending Sodium Level 143 MMOL/L (136-145) Potassium Level 4.7 MMOL/L (3.5-5.1) Chloride Level 102 MMOL/L (98-107) Carbon Dioxide Level 33 MMOL/L (21-32) H Anion Gap 8 mmol/L (5-15) Blood Urea Nitrogen 106 mg/dL (7-18) H Creatinine 6.5 MG/DL (0.55-1.30) H Estimat Glomerular Filtration Rate 6.3 mL/min (>60) Glucose Level 285 MG/DL (74-106) #H Calcium Level 8.8 MG/DL (8.5-10.1) Phosphorus Level 1.9 MG/DL (2.5-4.9) L Magnesium Level 2.2 MG/DL (1.8-2.4) Total Bilirubin 1.0 MG/DL (0.2-1.0) Aspartate Amino Transf (AST/SGOT) 26 U/L (15-37) Alanine Aminotransferase (ALT/SGPT) 10 U/L (12-78) L Alkaline Phosphatase 189 U/L (46-116) H Troponin I 0.622 ng/mL (0.000-0.056) C-Reactive Protein, Quantitative 25.3 mg/dL (0.00-0.90) H Pro-B-Type Natriuretic Peptide Pending Total Protein 6.4 G/DL (6.4-8.2) Albumin 2.2 G/DL (3.4-5.0) L Globulin 4.2 g/dL Albumin/Globulin Ratio 0.5 (1.0-2.7) L Current Medications Medications (Trade) Dose Ordered Sig/Toya Route PRN Reason Start Time Stop Time Status Last Admin Dose Admin Acetaminophen (Tylenol) 500 mg Q4HR PRN ORAL For Pain 07/17/20 00:00 08/16/20 00:00 07/24/20 03:39 Acetaminophen (Tylenol) 500 mg Q8H PRN ORAL FHMP 07/16/20 22:45 08/15/20 22:44 07/21/20 17:42 Albuterol Sulfate (Proventil MDI) 2 puff Q4H PRN INH Shortness of Breath 07/16/20 19:00 10/14/20 18:59 Azithromycin (Zithromax) 250 mg DAILY ORAL 07/19/20 09:00 07/26/20 08:59 07/24/20 08:47 Ceftriaxone Sodium 1 gm/ Dextrose 55 ml @ 110 mls/hr Q24H IVPB 07/20/20 12:15 07/27/20 12:14 07/23/20 12:42 Chlorhexidine Gluconate (Yessi-Hex 2%) 1 applic DAILY@2000 TOPIC 07/21/20 20:00 10/19/20 19:59 07/23/20 20:50 Clonidine HCl (Catapres Tab) 0.1 mg Q4H PRN NG bp over 165 syst 07/21/20 12:00 10/14/20 22:44 Dexamethasone Sodium Phosphate (Decadron 10mg/ ml Inj) 6 mg DAILY IV 07/20/20 12:15 07/29/20 09:01 07/24/20 08:47 Dextrose (Dextrose 50%) 25 ml Q30M PRN IV Hypoglycemia 07/22/20 08:00 10/20/20 07:59 Dextrose (Dextrose 50%) 50 ml Q30M PRN IV Hypoglycemia 07/22/20 08:00 10/20/20 07:59 Diltiazem HCl (Cardizem Tab) 60 mg EVERY 8 HOURS NG 07/24/20 14:00 08/16/20 13:59 Docusate Sodium (Colace) 100 mg THREE TIMES A DAY NG 07/21/20 13:00 08/20/20 12:59 07/24/20 08:47 Haloperidol Lactate (Haldol) 5 mg Q6H PRN IM Agitation 07/17/20 17:30 08/31/20 17:29 07/18/20 21:34 Hydralazine HCl (Apresoline) 10 mg EVERY 6 HOURS NG 07/24/20 12:00 10/15/20 05:59 Insulin Aspart (NovoLOG) Q6HR SUBQ 07/22/20 08:15 10/20/20 11:29 07/24/20 06:35 Insulin Detemir (Levemir) 12 units Q12HR SUBQ 07/24/20 09:00 10/20/20 09:59 Lorazepam (Ativan 2mg/ml 1ml) 1 mg Q4H PRN IV For Anxiety 07/20/20 22:15 07/27/20 22:14 07/23/20 00:44 Pantoprazole (Protonix) 40 mg EVERY 12 HOURS IVP 07/21/20 21:00 08/20/20 20:59 07/24/20 08:47 Phosphorus (Phospha 250 Neutral) 500 mg THREE TIMES A DAY NG 07/24/20 09:00 07/24/20 18:01 Quetiapine Fumarate (SEROqueL) 50 mg Q12HR ORAL 07/17/20 14:00 08/31/20 13:59 07/24/20 08:46 Kalin Briseno MD Jul 24, 2020 09:09
[2020-07-24] MEDS: Phospha 250 Neutral tab NG SCH ×3 (09:13→17:53)
[2020-07-24] MEDS: Levemir Flexpen SUBQ SCH ×2 (09:18→21:00)
--- NOTE | 2020-07-24 10:30 | NUR ---
NURSE NOTES: HD Nurse at bedside, requesting to order an Albumin since BP is low, but HD machine not properly working so will just come back later. to do the hemodialysis.
--- NOTE | 2020-07-24 10:36 | NUR ---
VP RESPIRATORY NOTE Pt is currently intubated. SW spoke w/ pt's daughter, Alice Donnelly [phone] and obtained information. Pt resides w/ Alice at [address] [place] [address]. PT has two adult daughters. The other daughter is not involved in pt's care and tx. Pt was ambulatory w/ cane and independent w/ most of ADLs prior to admission. Alice is the IHSS provider. Pt receives IHSS 60 hours/mo. Pt has hx of fall and uses a shower chair when taking a shower. PT has hx of anxiety attack and had seen a psychologist in the past. Pt does not have hx of substance abuse. PT does not have AD/POA. Alice expresses full code for pt. SW to F/U as needed.
--- NOTE | 2020-07-24 11:34 | Cardiac Electrophysiology PN ---
Assessment/Plan Assessment/Plan 1. Accelerated hypertension. On hydralazine 10 mg q6h, Cardizem 60 mg q8h , HD and p.r.n.clonidine. EF 40- 45% 2. Severe hyperkalemia. No cardiac arrhythmia was noted despite potassium of 6.8. Currently in sinus rhythm. On hemodialysis under management of Dr. Falk. 3. End-stage renal disease, now on hemodialysis. 4. Hyponatremia, sodium 129. Fluid restriction per Dr. Falk. 5. Volume overload, BNP of more than 35,000 and EF 40-45%. On HD 6. Covid PNA and resp failure on the Vent with 100% Fio2 and PEEP 15 Covid positive 07/11 and 07/17 DW RN Subjective Subjective Confused in restraints. In Covid isolation. Intubated on 100% Fio2 and PEEP 15. Getting started on HD Objective Last 24 Hour Vital Signs Date Time Temp Pulse Resp B/P (MAP) Pulse Ox O2 Delivery O2 Flow Rate FiO2 07/24/20 11:00 83 10 109/43 (65) 100 07/24/20 10:00 79 17 102/39 (60) 100 07/24/20 09:00 80 16 115/44 (67) 100 07/24/20 08:00 100 07/24/20 08:00 97.3 78 16 107/42 (63) 100 07/24/20 08:00 78 07/24/20 07:15 80 16 100 07/24/20 07:00 80 16 114/39 (64) 100 07/24/20 06:00 117/99 07/24/20 06:00 87 117/99 07/24/20 06:00 98.7 84 17 114/39 (64) 100 07/24/20 05:00 100 17 125/43 (70) 97 07/24/20 04:00 100 07/24/20 04:00 99.5 87 20 117/99 (105) 07/24/20 03:56 98 23 100 07/24/20 03:54 101 07/24/20 03:30 102.0 07/24/20 03:00 101 24 145/48 (80) 94 07/24/20 02:00 102 28 152/55 (87) 94 07/24/20 01:00 111 28 147/55 (85) 96 07/24/20 00:32 109 07/24/20 00:00 99.6 112 25 153/55 (87) 98 07/24/20 00:00 100 07/23/20 23:42 110 19 100 07/23/20 23:32 112 149/53 07/23/20 23:00 112 27 154/56 (88) 98 07/23/20 22:26 147/55 07/23/20 22:00 111 28 147/55 (85) 96 07/23/20 21:00 100 07/23/20 21:00 107 24 147/52 (83) 97 07/23/20 20:00 98.7 110 26 151/55 (87) 97 07/23/20 19:47 83 07/23/20 19:29 108 22 100 07/23/20 19:00 110 27 136/66 (89) 96 07/23/20 18:00 105 19 142/54 (83) 100 07/23/20 17:38 97 163/52 07/23/20 17:00 95 23 156/58 (90) 99 07/23/20 17:00 95 23 156/58 (90) 99 07/23/20 16:00 99.9 99 26 155/49 (84) 98 07/23/20 16:00 110 07/23/20 16:00 100 07/23/20 16:00 Mechanical Ventilator 07/23/20 16:00 100 07/23/20 16:00 99 26 155/49 (84) 98 07/23/20 15:00 98 22 151/55 (87) 98 07/23/20 15:00 98 22 151/55 (87) 98 07/23/20 14:45 105 25 100 07/23/20 14:00 93 20 137/47 (77) 100 07/23/20 14:00 93 20 137/47 (77) 100 07/23/20 13:36 145/53 07/23/20 13:00 87 16 141/45 (77) 100 07/23/20 13:00 87 16 141/45 (77) 100 07/23/20 12:42 91 140/47 07/23/20 12:00 99.2 94 21 140/46 (77) 94 07/23/20 12:00 94 07/23/20 12:00 100 07/23/20 12:00 100 07/23/20 12:00 Mechanical Ventilator 07/23/20 12:00 94 21 140/46 (77) 94 Intake and Output 07/23/20 07/24/20 19:00 07:00 Intake Total 660 ml 420 ml Balance 660 ml 420 ml Free Water 150 ml 60 ml Tube Feeding 510 ml 360 ml # Voids 1 Laboratory Tests Test 07/23/20 12:08 07/24/20 04:00 Arterial Blood pH 7.342 (7.350-7.450) Arterial Blood Partial Pressure CO2 57.9 mmHg (35.0-45.0) *H Arterial Blood Partial Pressure O2 55.7 mmHg (75.0-100.0) L Arterial Blood HCO3 30.7 mmol/L (22.0-26.0) H Arterial Blood Oxygen Saturation 84.4 % (95-100) *L Arterial Blood Base Excess 4.1 (-2-2) H Faheem Test Positive White Blood Count 11.3 K/UL (4.8-10.8) H Red Blood Count 2.51 M/UL (4.20-5.40) L Hemoglobin 8.7 G/DL (12.0-16.0) L Hematocrit 25.6 % (37.0-47.0) L Mean Corpuscular Volume 102 FL (80-99) H Mean Corpuscular Hemoglobin 34.8 PG (27.0-31.0) H Mean Corpuscular Hemoglobin Concent 34.1 G/DL (32.0-36.0) Red Cell Distribution Width 15.4 % (11.6-14.8) H Platelet Count 104 K/UL (150-450) L Mean Platelet Volume 8.6 FL (6.5-10.1) Neutrophils (%) (Auto) % (45.0-75.0) Lymphocytes (%) (Auto) % (20.0-45.0) Monocytes (%) (Auto) % (1.0-10.0) Eosinophils (%) (Auto) % (0.0-3.0) Basophils (%) (Auto) % (0.0-2.0) Differential Total Cells Counted 100 Neutrophils % (Manual) 96 % (45-75) H Lymphocytes % (Manual) 2 % (20-45) L Monocytes % (Manual) 2 % (1-10) Eosinophils % (Manual) 0 % (0-3) Basophils % (Manual) 0 % (0-2) Band Neutrophils 0 % (0-8) Platelet Estimate Decreased L Platelet Morphology Normal Polychromasia 1+ Hypochromasia 1+ Anisocytosis 1+ Sodium Level 143 MMOL/L (136-145) Potassium Level 4.7 MMOL/L (3.5-5.1) Chloride Level 102 MMOL/L (98-107) Carbon Dioxide Level 33 MMOL/L (21-32) H Anion Gap 8 mmol/L (5-15) Blood Urea Nitrogen 106 mg/dL (7-18) H Creatinine 6.5 MG/DL (0.55-1.30) H Estimat Glomerular Filtration Rate 6.3 mL/min (>60) Glucose Level 285 MG/DL (74-106) #H Calcium Level 8.8 MG/DL (8.5-10.1) Phosphorus Level 1.9 MG/DL (2.5-4.9) L Magnesium Level 2.2 MG/DL (1.8-2.4) Total Bilirubin 1.0 MG/DL (0.2-1.0) Aspartate Amino Transf (AST/SGOT) 26 U/L (15-37) Alanine Aminotransferase (ALT/SGPT) 10 U/L (12-78) L Alkaline Phosphatase 189 U/L (46-116) H Troponin I 0.622 ng/mL (0.000-0.056) C-Reactive Protein, Quantitative 25.3 mg/dL (0.00-0.90) H Pro-B-Type Natriuretic Peptide Pending Total Protein 6.4 G/DL (6.4-8.2) Albumin 2.2 G/DL (3.4-5.0) L Globulin 4.2 g/dL Albumin/Globulin Ratio 0.5 (1.0-2.7) L Microbiology Date/Time Source Procedure Growth Status 07/23/20 03:30 Sputum Gram Stain - Final Resulted 07/23/20 03:30 Sputum Sputum Culture Pending Resulted Objective HEAD AND NECK: Showed no JVD.Orally intubated LUNGS: Coarse rhonchi. CARDIOVASCULAR: Regular S1 and S2 with no gallop or murmur. ABDOMEN: Soft. EXTREMITIES: No pitting edema. Zev Gatica MD Jul 24, 2020 11:34
--- NOTE | 2020-07-24 12:00 | NUR ---
NURSE NOTES: Pt stable noted no resp distress pulled up and repositioned.
[2020-07-24] MEDS: HydrALAZINE 10mg Tab NG SCH ×2 (12:18→17:54)
--- NOTE | 2020-07-24 13:01 | General Progress Note ---
Subjective ROS Limited/Unobtainable: No Allergies: Coded Allergies: No Known Allergies (Unverified , 05/12/17) Objective Last 24 Hour Vital Signs Date Time Temp Pulse Resp B/P (MAP) Pulse Ox O2 Delivery O2 Flow Rate FiO2 07/24/20 12:18 130/50 07/24/20 12:09 99.4 86 15 130/50 (76) 97 07/24/20 12:00 100 07/24/20 11:00 83 10 109/43 (65) 100 07/24/20 10:55 82 16 100 07/24/20 10:00 79 17 102/39 (60) 100 07/24/20 09:00 80 16 115/44 (67) 100 07/24/20 08:00 100 07/24/20 08:00 97.3 78 16 107/42 (63) 100 07/24/20 08:00 78 07/24/20 07:15 80 16 100 07/24/20 07:00 80 16 114/39 (64) 100 07/24/20 06:00 117/99 07/24/20 06:00 87 117/99 07/24/20 06:00 98.7 84 17 114/39 (64) 100 07/24/20 05:00 100 17 125/43 (70) 97 07/24/20 04:00 100 07/24/20 04:00 99.5 87 20 117/99 (105) 07/24/20 03:56 98 23 100 07/24/20 03:54 101 07/24/20 03:30 102.0 07/24/20 03:00 101 24 145/48 (80) 94 07/24/20 02:00 102 28 152/55 (87) 94 07/24/20 01:00 111 28 147/55 (85) 96 07/24/20 00:32 109 07/24/20 00:00 99.6 112 25 153/55 (87) 98 07/24/20 00:00 100 07/23/20 23:42 110 19 100 07/23/20 23:32 112 149/53 07/23/20 23:00 112 27 154/56 (88) 98 07/23/20 22:26 147/55 07/23/20 22:00 111 28 147/55 (85) 96 07/23/20 21:00 100 07/23/20 21:00 107 24 147/52 (83) 97 07/23/20 20:00 98.7 110 26 151/55 (87) 97 07/23/20 19:47 83 07/23/20 19:29 108 22 100 07/23/20 19:00 110 27 136/66 (89) 96 07/23/20 18:00 105 19 142/54 (83) 100 07/23/20 17:38 97 163/52 07/23/20 17:00 95 23 156/58 (90) 99 07/23/20 17:00 95 23 156/58 (90) 99 07/23/20 16:00 99.9 99 26 155/49 (84) 98 07/23/20 16:00 110 07/23/20 16:00 100 07/23/20 16:00 Mechanical Ventilator 07/23/20 16:00 100 07/23/20 16:00 99 26 155/49 (84) 98 07/23/20 15:00 98 22 151/55 (87) 98 07/23/20 15:00 98 22 151/55 (87) 98 07/23/20 14:45 105 25 100 07/23/20 14:00 93 20 137/47 (77) 100 07/23/20 14:00 93 20 137/47 (77) 100 07/23/20 13:36 145/53 Intake and Output 07/23/20 07/24/20 19:00 07:00 Intake Total 660 ml 420 ml Balance 660 ml 420 ml Free Water 150 ml 60 ml Tube Feeding 510 ml 360 ml # Voids 1 Laboratory Tests 07/24/20 04:00: White Blood Count 11.3H, Red Blood Count 2.51L, Hemoglobin 8.7L, Hematocrit 25.6L, Mean Corpuscular Volume 102H, Mean Corpuscular Hemoglobin 34.8H, Mean Corpuscular Hemoglobin Concent 34.1, Red Cell Distribution Width 15.4H, Platelet Count 104L, Mean Platelet Volume 8.6, Neutrophils (%) (Auto) , Lymphocytes (%) (Auto) , Monocytes (%) (Auto) , Eosinophils (%) (Auto) , Basophils (%) (Auto) , Differential Total Cells Counted 100, Neutrophils % (Manual) 96H, Lymphocytes % (Manual) 2L, Monocytes % (Manual) 2, Eosinophils % (Manual) 0, Basophils % (Manual) 0, Band Neutrophils 0, Platelet Estimate DecreasedL, Platelet Morphology Normal, Polychromasia 1+, Hypochromasia 1+, Anisocytosis 1+, Sodium Level 143, Potassium Level 4.7, Chloride Level 102, Carbon Dioxide Level 33H, Anion Gap 8, Blood Urea Nitrogen 106H, Creatinine 6.5H, Estimat Glomerular Filtration Rate 6.3, Glucose Level 285#H, Calcium Level 8.8, Phosphorus Level 1.9L, Magnesium Level 2.2, Total Bilirubin 1.0, Aspartate Amino Transf (AST/SGOT) 26, Alanine Aminotransferase (ALT/SGPT) 10L, Alkaline Phosphatase 189H, Troponin I 0.622H, C-Reactive Protein, Quantitative 25.3H, Pro-B-Type Natriuretic Peptide [Pending], Total Protein 6.4, Albumin 2.2L, Globulin 4.2, Albumin/Globulin Ratio 0.5L Height (Feet): 5 Height (Inches): 4.00 Weight (Pounds): 180 General Appearance: no apparent distress EENT: normal ENT inspection Neck: supple Cardiovascular: normal rate Respiratory/Chest: decreased breath sounds Abdomen: hypoactive bowel sounds Extremities: non-tender Assessment/Plan Status: deteriorating Assessment/Plan: Assessment/Plan Assessment/Plan Status: deteriorating Assessment/Plan: Assessment - Recurrent GI bleed - anemia - s/p multiple endoscopies and colonoscopies this year - resp failure - COPD - COVID PNA - abnormal LFT - presumed COVID related - DM - Poor Px Recommendations - PPI BID - Tube feeds - follow labs - HD - No plans for endoscopy per discussion with family Lito Cervantes MD Jul 24, 2020 13:01
--- NOTE | 2020-07-24 13:12 | Nephrology Progress Note ---
Assessment/Plan Problem List: (1) Hypertensive kidney disease (2) ESRD (end stage renal disease) (3) Hyperkalemia (4) Suspected 2019 novel coronavirus infection (5) Acute respiratory failure Assessment 70-year-old female with end-stage renal disease Presented with volume overload and hyperkalemia Suspected COVID-19 virus infection Hypertensive emergency Diabetes mellitus CHF Plan July 24: Due for dialysis today. Labs reviewed. Low phosphorus replaced. Continue pulmonary support and ID management. Medication list reviewed. BP medication adjusted. July 23: Dialyzed yesterday. Labs reviewed. ABG noted. Patient hypoxic. Vent setting adjusted by insurance coordinator. Continue current care. Dialysis tomorrow. July 22: Patient on ventilator requiring positive end expiratory pressure. Labs reviewed. Blood sugar elevated. Levemir insulin ordered. Dialysis today. Continue per consultants. July 21: Patient now in ICU. Intubated on ventilator. Was dialyzed. Blood pressure well maintained. Has NG tube. Will start medication through NG tube a nd start feeding. Continue per consultants. Hemodialysis as needed. July 20: Patient seen and examined. Discussed with RN. Remains encephalopathic. Poor ABG results. Patient at high risk at this stage. We will transfer patients to ICU for possible airway support. Patient due for dialysis today. Hyperkalemia probably secondary to acidosis. Will arrange for NG tube insertion and give medication through NG tube. July 19: Mental status appears slightly improved. Was dialyzed 2 days in a row. Blood pressure medication adjusted. Next dialysis tomorrow. Continue per consultants. July 18: Patient encephalopathic, was dialyzed yesterday and had 3 L removed. Will order dialysis again today. Continue per ID. Blood pressure medication adjusted. July 17: Stat hemodialysis ordered. Kayexalate for high potassium. Pulmonary support with oxygen or BiPAP as needed Blood pressure support with proper parameters Per orders Subjective ROS Limited/Unobtainable: Yes Objective Objective Last 24 Hour Vital Signs Date Time Temp Pulse Resp B/P (MAP) Pulse Ox O2 Delivery O2 Flow Rate FiO2 07/24/20 12:18 130/50 07/24/20 12:09 99.4 86 15 130/50 (76) 97 07/24/20 12:00 100 07/24/20 11:00 83 10 109/43 (65) 100 07/24/20 10:55 82 16 100 12/22/20 10:00 79 17 102/39 (60) 100 07/24/20 09:00 80 16 115/44 (67) 100 07/24/20 08:00 100 07/24/20 08:00 97.3 78 16 107/42 (63) 100 07/24/20 08:00 78 07/24/20 07:15 80 16 100 07/24/20 07:00 80 16 114/39 (64) 100 07/24/20 06:00 117/99 07/24/20 06:00 87 117/99 07/24/20 06:00 98.7 84 17 114/39 (64) 100 07/24/20 05:00 100 17 125/43 (70) 97 07/24/20 04:00 100 07/24/20 04:00 99.5 87 20 117/99 (105) 07/24/20 03:56 98 23 100 07/24/20 03:54 101 07/24/20 03:30 102.0 07/24/20 03:00 101 24 145/48 (80) 94 07/24/20 02:00 102 28 152/55 (87) 94 07/24/20 01:00 111 28 147/55 (85) 96 07/24/20 00:32 109 07/24/20 00:00 99.6 112 25 153/55 (87) 98 07/24/20 00:00 100 07/23/20 23:42 110 19 100 07/23/20 23:32 112 149/53 07/23/20 23:00 112 27 154/56 (88) 98 07/23/20 22:26 147/55 07/23/20 22:00 111 28 147/55 (85) 96 07/23/20 21:00 100 07/23/20 21:00 107 24 147/52 (83) 97 07/23/20 20:00 98.7 110 26 151/55 (87) 97 20 19:47 83 07/23/20 19:29 108 22 100 07/23/20 19:00 110 27 136/66 (89) 96 07/23/20 18:00 105 19 142/54 (83) 100 07/23/20 17:38 97 163/52 07/23/20 17:00 95 23 156/58 (90) 99 07/23/20 17:00 95 23 156/58 (90) 99 07/23/20 16:00 99.9 99 26 155/49 (84) 98 07/23/20 16:00 110 07/23/20 16:00 100 07/23/20 16:00 Mechanical Ventilator 07/23/20 16:00 100 07/23/20 16:00 99 26 155/49 (84) 98 07/23/20 15:00 98 22 151/55 (87) 98 07/23/20 15:00 98 22 151/55 (87) 98 07/23/20 14:45 105 25 100 07/23/20 14:00 93 20 137/47 (77) 100 07/23/20 14:00 93 20 137/47 (77) 100 07/23/20 13:36 145/53 Intake and Output 07/23/20 07/24/20 19:00 07:00 Intake Total 660 ml 420 ml Balance 660 ml 420 ml Free Water 150 ml 60 ml Tube Feeding 510 ml 360 ml # Voids 1 Current Medications Medications (Trade) Dose Ordered Sig/Toya Route PRN Reason Start Time Stop Time Status Last Admin Dose Admin Acetaminophen (Tylenol) 500 mg Q4HR PRN ORAL For Pain 07/17/20 00:00 08/16/20 00:00 07/24/20 03:39 Acetaminophen (Tylenol) 500 mg Q8H PRN ORAL FHMP 07/16/20 22:45 08/15/20 22:44 07/21/20 17:42 Albuterol Sulfate (Proventil MDI) 2 puff Q4H PRN INH Shortness of Breath 07/16/20 19:00 10/14/20 18:59 Chlorhexidine Gluconate (Yessi-Hex 2%) 1 applic DAILY@1999 TOPIC 07/21/20 20:00 10/19/20 19:59 07/23/20 20:50 Clonidine HCl (Catapres Tab) 0.1 mg Q4H PRN NG bp over 165 syst 07/21/20 12:00 10/14/20 22:44 Dexamethasone Sodium Phosphate (Decadron 10mg/ ml Inj) 6 mg DAILY IV 07/20/20 12:15 07/29/20 09:01 07/24/20 08:47 Dextrose (Dextrose 50%) 25 ml Q30M PRN IV Hypoglycemia 07/22/20 08:00 10/20/20 07:59 Dextrose (Dextrose 50%) 50 ml Q30M PRN IV Hypoglycemia 07/22/20 08:00 10/20/20 07:59 Diltiazem HCl (Cardizem Tab) 60 mg EVERY 8 HOURS NG 07/24/20 14:00 08/16/20 13:59 Docusate Sodium (Colace) 100 mg THREE TIMES A DAY NG 07/21/20 13:00 08/20/20 12:59 07/24/20 12:18 Haloperidol Lactate (Haldol) 5 mg Q6H PRN IM Agitation 07/17/20 17:30 08/31/20 17:29 07/18/20 21:34 Hydralazine HCl (Apresoline) 10 mg EVERY 6 HOURS NG 07/24/20 12:00 10/15/20 05:59 07/24/20 12:18 Insulin Aspart (NovoLOG) Q6HR SUBQ 07/22/20 08:15 10/20/20 11:29 07/24/20 12:08 Insulin Detemir (Levemir) 12 units Q12HR SUBQ 07/24/20 09:00 10/20/20 09:59 07/24/20 09:18 Lorazepam (Ativan 2mg/ml 1ml) 1 mg Q4H PRN IV For Anxiety 07/20/20 22:15 07/27/20 22:14 07/23/20 00:44 Pantoprazole (Protonix) 40 mg EVERY 12 HOURS IVP 07/21/20 21:00 08/20/20 20:59 07/24/20 08:47 Phosphorus (Phospha 250 Neutral) 500 mg THREE TIMES A DAY NG 07/24/20 09:00 07/24/20 18:01 07/24/20 12:19 Piperacillin Sod/ Tazobactam Sod 2.25 gm/Dextrose 55 ml @ 110 mls/hr Q8HR IV 07/24/20 14:00 07/29/20 13:59 Quetiapine Fumarate (SEROqueL) 50 mg Q12HR ORAL 07/17/20 14:00 08/31/20 13:59 07/24/20 08:46 Laboratory Tests 07/24/20 04:00: White Blood Count 11.3H, Red Blood Count 2.51L, Hemoglobin 8.7L, Hematocrit 25.6L, Mean Corpuscular Volume 102H, Mean Corpuscular Hemoglobin 34.8H, Mean Corpuscular Hemoglobin Concent 34.1, Red Cell Distribution Width 15.4H, Platelet Count 104L, Mean Platelet Volume 8.6, Neutrophils (%) (Auto) , Lymphocytes (%) (Auto) , Monocytes (%) (Auto) , Eosinophils (%) (Auto) , Basophils (%) (Auto) , Differential Total Cells Counted 100, Neutrophils % (Manual) 96H, Lymphocytes % (Manual) 2L, Monocytes % (Manual) 2, Eosinophils % (Manual) 0, Basophils % (Manual) 0, Band Neutrophils 0, Platelet Estimate DecreasedL, Platelet Morphology Normal, Polychromasia 1+, Hypochromasia 1+, Anisocytosis 1+, Sodium Level 143, Potassium Level 4.7, Chloride Level 102, Carbon Dioxide Level 33H, Anion Gap 8, Blood Urea Nitrogen 106H, Creatinine 6.5H, Estimat Glomerular Filtration Rate 6.3, Glucose Level 285#H, Calcium Level 8.8, Phosphorus Level 1.9L, Magnesium Level 2.2, Total Bilirubin 1.0, Aspartate Amino Transf (AST/SGOT) 26, Alanine Aminotransferase (ALT/SGPT) 10L, Alkaline Phosphatase 189H, Troponin I 0.622H, C-Reactive Protein, Quantitative 25.3H, Pro-B-Type Natriuretic Peptide [Pending], Total Protein 6.4, Albumin 2.2L, Globulin 4.2, Albumin/Globulin Ratio 0.5L Height (Feet): 5 Height (Inches): 4.00 Weight (Pounds): 180 General Appearance: no apparent distress EENT: other - Intubated on ventilator Cardiovascular: normal rate Respiratory/Chest: decreased breath sounds Abdomen: distended Francis Falk MD Jul 24, 2020 13:12
[2020-07-24] MEDS: Piperacillin/Tazobactam 2.25 GM in D5W 55 ML IV SCH ×2 (13:36→21:36)
--- NOTE | 2020-07-24 13:55 | Diagnostic Imaging Report ---
Indication: Dyspnea Technique: One view of the chest Comparison: 07/20/2020 Findings: Heart is enlarged. There are bilateral interstitial and airspace infiltrates diffusely which appear increased from the prior study, allowing for differences in exposure technique. Stable satisfactory positions of endotracheal orogastric tube, improved position of previously low endotracheal tube Impression: Worsening bilateral infiltrates versus edema, or 4 days
--- NOTE | 2020-07-24 15:00 | NUR ---
NURSE NOTES: Oral secretions suctioned PRN,turned and repositioned
--- NOTE | 2020-07-24 15:38 | Pulmonology Progress Note ---
Subjective ROS Limited/Unobtainable: Yes Interval Events: seen in ICU; remains intubated Constitutional: Reports: fever, other - Ce=783 HEENT: Repors: no symptoms Respiratory: Reports: no symptoms Cardiovascular: Reports: no symptoms Gastrointestinal/Abdominal: Reports: no symptoms Genitourinary: Reports: no symptoms Allergies: Coded Allergies: No Known Allergies (Unverified , 05/12/17) Objective Last 24 Hour Vital Signs Date Time Temp Pulse Resp B/P (MAP) Pulse Ox O2 Delivery O2 Flow Rate FiO2 07/24/20 15:00 90 19 109/41 (63) 95 07/24/20 14:02 96 18 135/51 (79) 95 07/24/20 13:37 86 130/50 07/24/20 13:00 88 26 133/47 (75) 95 07/24/20 12:18 130/50 07/24/20 12:09 99.4 86 15 130/50 (76) 97 07/24/20 12:00 88 07/24/20 12:00 100 07/24/20 11:00 83 10 109/43 (65) 100 07/24/20 10:55 82 16 100 07/24/20 10:00 79 17 102/39 (60) 100 07/24/20 09:00 80 16 115/44 (67) 100 07/24/20 08:00 100 07/24/20 08:00 97.3 78 16 107/42 (63) 100 07/24/20 08:00 78 07/24/20 07:15 80 16 100 07/24/20 07:00 80 16 114/39 (64) 100 07/24/20 06:00 117/99 07/24/20 06:00 87 117/99 07/24/20 06:00 98.7 84 17 114/39 (64) 100 07/24/20 05:00 100 17 125/43 (70) 97 07/24/20 04:00 100 07/24/20 04:00 99.5 87 20 117/99 (105) 07/24/20 03:56 98 23 100 07/24/20 03:54 101 07/24/20 03:30 102.0 07/24/20 03:00 101 24 145/48 (80) 94 07/24/20 02:00 102 28 152/55 (87) 94 07/24/20 01:00 111 28 147/55 (85) 96 07/24/20 00:32 109 07/24/20 00:00 99.6 112 25 153/55 (87) 98 07/24/20 00:00 100 07/23/20 23:42 110 19 100 07/23/20 23:32 112 149/53 07/23/20 23:00 112 27 154/56 (88) 98 07/23/20 22:26 147/55 07/23/20 22:00 111 28 147/55 (85) 96 07/23/20 21:00 100 07/23/20 21:00 107 24 147/52 (83) 97 07/23/20 20:00 98.7 110 26 151/55 (87) 97 07/23/20 19:47 83 07/23/20 19:29 108 22 100 07/23/20 19:00 110 27 136/66 (89) 96 07/23/20 18:00 105 19 142/54 (83) 100 07/23/20 17:38 97 163/52 07/23/20 17:00 95 23 156/58 (90) 99 07/23/20 17:00 95 23 156/58 (90) 99 07/23/20 16:00 99.9 99 26 155/49 (84) 98 07/23/20 16:00 110 07/23/20 16:00 100 07/23/20 16:00 Mechanical Ventilator 07/23/20 16:00 100 07/23/20 16:00 99 26 155/49 (84) 98 Intake and Output 07/23/20 07/24/20 19:00 07:00 Intake Total 660 ml 420 ml Balance 660 ml 420 ml Free Water 150 ml 60 ml Tube Feeding 510 ml 360 ml # Voids 1 General Appearance: WD/WN, no acute distress, other - intubation HEENT: normocephalic Respiratory: chest wall non-tender, crackles/rales Cardiovascular: normal rate, regular rhythm Microbiology Date/Time Source Procedure Growth Status 07/23/20 03:30 Sputum Gram Stain - Final Resulted 07/23/20 03:30 Sputum Sputum Culture Pending Resulted Laboratory Tests 07/24/20 04:00: White Blood Count 11.3H, Red Blood Count 2.51L, Hemoglobin 8.7L, Hematocrit 25.6L, Mean Corpuscular Volume 102H, Mean Corpuscular Hemoglobin 34.8H, Mean Corpuscular Hemoglobin Concent 34.1, Red Cell Distribution Width 15.4H, Platelet Count 104L, Mean Platelet Volume 8.6, Neutrophils (%) (Auto) , Lymphocytes (%) (Auto) , Monocytes (%) (Auto) , Eosinophils (%) (Auto) , Basophils (%) (Auto) , Differential Total Cells Counted 100, Neutrophils % (Manual) 96H, Lymphocytes % (Manual) 2L, Monocytes % (Manual) 2, Eosinophils % (Manual) 0, Basophils % (Manual) 0, Band Neutrophils 0, Platelet Estimate DecreasedL, Platelet Morphology Normal, Polychromasia 1+, Hypochromasia 1+, Anisocytosis 1+, Sodium Level 143, Potassium Level 4.7, Chloride Level 102, Carbon Dioxide Level 33H, Anion Gap 8, Blood Urea Nitrogen 106H, Creatinine 6.5H, Estimat Glomerular Filtration Rate 6.3, Glucose Level 285#H, Calcium Level 8.8, Phosphorus Level 1.9L, Magnesium Level 2.2, Total Bilirubin 1.0, Aspartate Amino Transf (AST/SGOT) 26, Alanine Aminotransferase (ALT/SGPT) 10L, Alkaline Phosphatase 189H, Troponin I 0.622H, C-Reactive Protein, Quantitative 25.3H, Pro-B-Type Natriuretic Peptide > [id number], Total Protein 6.4, Albumin 2.2L, Globulin 4.2, Albumin/Globulin Ratio 0.5L Current Medications Medications (Trade) Dose Ordered Sig/Toya Route PRN Reason Start Time Stop Time Status Last Admin Dose Admin Acetaminophen (Tylenol) 500 mg Q4HR PRN ORAL For Pain 07/17/20 00:00 08/16/20 00:00 07/24/20 03:39 Acetaminophen (Tylenol) 500 mg Q8H PRN ORAL FHMP 07/16/20 22:45 08/15/20 22:44 07/21/20 17:42 Albuterol Sulfate (Proventil MDI) 2 puff Q4H PRN INH Shortness of Breath 07/16/20 19:00 10/14/20 18:59 Chlorhexidine Gluconate (Yessi-Hex 2%) 1 applic DAILY@1999 TOPIC 07/21/20 20:00 10/19/20 19:59 12/21/20 20:50 Clonidine HCl (Catapres Tab) 0.1 mg Q4H PRN NG bp over 165 syst 07/21/20 12:00 10/14/20 22:44 Dexamethasone Sodium Phosphate (Decadron 10mg/ ml Inj) 6 mg DAILY IV 07/20/20 12:15 07/29/20 09:01 07/24/20 08:47 Dextrose (Dextrose 50%) 25 ml Q30M PRN IV Hypoglycemia 07/22/20 08:00 10/20/20 07:59 Dextrose (Dextrose 50%) 50 ml Q30M PRN IV Hypoglycemia 07/22/20 08:00 10/20/20 07:59 Diltiazem HCl (Cardizem Tab) 60 mg EVERY 8 HOURS NG 07/24/20 14:00 08/16/20 13:59 07/24/20 13:37 Docusate Sodium (Colace) 100 mg THREE TIMES A DAY NG 07/21/20 13:00 08/20/20 12:59 07/24/20 12:18 Haloperidol Lactate (Haldol) 5 mg Q6H PRN IM Agitation 07/17/20 17:30 08/31/20 17:29 07/18/20 21:34 Hydralazine HCl (Apresoline) 10 mg EVERY 6 HOURS NG 07/24/20 12:00 10/15/20 05:59 07/24/20 12:18 Insulin Aspart (NovoLOG) Q6HR SUBQ 07/22/20 08:15 10/20/20 11:29 07/24/20 12:08 Insulin Detemir (Levemir) 12 units Q12HR SUBQ 07/24/20 09:00 10/20/20 09:59 07/24/20 09:18 Lorazepam (Ativan 2mg/ml 1ml) 1 mg Q4H PRN IV For Anxiety 07/20/20 22:15 07/27/20 22:14 07/23/20 00:44 Pantoprazole (Protonix) 40 mg EVERY 12 HOURS IVP 07/21/20 21:00 08/20/20 20:59 07/24/20 08:47 Phosphorus (Phospha 250 Neutral) 500 mg THREE TIMES A DAY NG 07/24/20 09:00 07/24/20 18:01 07/24/20 12:19 Piperacillin Sod/ Tazobactam Sod 2.25 gm/Dextrose 55 ml @ 110 mls/hr Q8HR IV 07/24/20 14:00 07/29/20 13:59 07/24/20 13:36 Quetiapine Fumarate (SEROqueL) 50 mg Q12HR ORAL 07/17/20 14:00 08/31/20 13:59 07/24/20 08:46 Assessment/Plan Assessment/Plan Assessment/Plan 1. COVID-19 pneumonia. 2. COPD exacerbation. 3. Pneumonia - CXR shows b/l opacities - she received decadron once which has now been discontinued 4. Hypertensive emergency. - Blood pressure controlled. 5. Leukocytosis.; improving 6. Anemia. 7. Hyponatremia.; resolved 8. Hyperkalemia.; resolved 9. Hypochloridemia.; resolved 10. Hyperglycemia. 11. ESRD, on dialysis. 12. Respiratory failure; now intubated PLAN Continue O2; currently 100% Vent; AC mode On PEEP now 15 S/p HD Will check ABG Rate 16 Steroids Defer Remdesivir choice to ID; renal failure precludes use Levy Law MD, MD Jul 24, 2020 15:38
--- NOTE | 2020-07-24 18:00 | NUR ---
NURSE NOTES: Pt with BM to black tarry diarrhea stools,bed bath given,Pt continue with fever T101,given Tylenol 500mg , ice cold compress applied to forehead.
--- NOTE | 2020-07-24 19:30 | NUR ---
NURSE NOTES: Received pt , orally intubated on ac mode , Bilateral soft wrist restraints maintained for safety, SR on the monitor, bp stable febrile 102f, cooling measures started. awaiting for hemodialysis. Will continue to monitor.
--- NOTE | 2020-07-24 19:39 | NUR ---
NURSE HAND-OFF REPORT: Latest Vital Signs: Temperature 101.0 , Pulse 106 , B/P 130 /45 , Respiratory Rate 21 , O2 SAT 93 , Nasal Cannula, O2 Flow Rate 3.0 . Vital Sign Comment: [guarded pt with fever EKG Rhythm: Sinus Rhythm Rhythm change?: N MD Notified?: Y -Dr. En CROFT Response: Latest Elizabeth Fall Score: 50 Fall Risk: High Risk Safety Measures: Call light Within Reach, Bed Alarm Zone 2, Side Rails Side Rails x2, Bed position Low and Locked. Fall Precautions: Yellow Socks Yellow Gown Door Sign Patient Fall Education Report given to Crystal Lyles RN..
[2020-07-24] MEDS: Dyna-Hex 2% Top Sol 2oz TOPIC SCH (20:06)
--- NOTE | 2020-07-24 21:00 | NUR ---
NURSE NOTES: Hemodialysis was started via left upper arm AV shunt
--- NOTE | 2020-07-24 21:50 | General Progress Note ---
Subjective ROS Limited/Unobtainable: Yes Allergies: Coded Allergies: No Known Allergies (Unverified , 05/12/17) Objective Last 24 Hour Vital Signs Date Time Temp Pulse Resp B/P (MAP) Pulse Ox O2 Delivery O2 Flow Rate FiO2 07/24/20 21:34 91 147/47 07/24/20 19:45 101.0 07/24/20 19:30 89 26 100 07/24/20 19:00 106 21 130/45 (73) 93 07/24/20 18:00 97 26 119/42 (67) 96 07/24/20 17:54 133/49 07/24/20 16:00 93 07/24/20 16:00 101.0 07/24/20 16:00 93 19 129/44 (72) 95 07/24/20 16:00 100 07/24/20 15:00 90 19 109/41 (63) 95 07/24/20 14:34 84 16 100 07/24/20 14:02 96 18 135/51 (79) 95 07/24/20 13:37 86 130/50 07/24/20 13:00 88 26 133/47 (75) 95 07/24/20 12:18 130/50 07/24/20 12:09 99.4 86 15 130/50 (76) 97 07/24/20 12:00 88 07/24/20 12:00 100 07/24/20 11:00 83 10 109/43 (65) 100 07/24/20 10:55 82 16 100 07/24/20 10:00 79 17 102/39 (60) 100 07/24/20 09:00 80 16 115/44 (67) 100 07/24/20 08:00 100 07/24/20 08:00 97.3 78 16 107/42 (63) 100 07/24/20 08:00 78 07/24/20 07:15 80 16 100 07/24/20 07:00 80 16 114/39 (64) 100 07/24/20 06:00 117/99 07/24/20 06:00 87 117/99 07/24/20 06:00 98.7 84 17 114/39 (64) 100 07/24/20 05:00 100 17 125/43 (70) 97 07/24/20 04:00 100 07/24/20 04:00 99.5 87 20 117/99 (105) 07/24/20 03:56 98 23 100 07/24/20 03:54 101 07/24/20 03:30 102.0 07/24/20 03:00 101 24 145/48 (80) 94 07/24/20 02:00 102 28 152/55 (87) 94 07/24/20 01:00 111 28 147/55 (85) 96 07/24/20 00:32 109 07/24/20 00:00 99.6 112 25 153/55 (87) 98 07/24/20 00:00 100 07/23/20 23:42 110 19 100 07/23/20 23:32 112 149/53 07/23/20 23:00 112 27 154/56 (88) 98 07/23/20 22:26 147/55 07/23/20 22:00 111 28 147/55 (85) 96 Intake and Output 07/23/20 07/24/20 19:00 07:00 Intake Total 660 ml 420 ml Balance 660 ml 420 ml Free Water 150 ml 60 ml Tube Feeding 510 ml 360 ml # Voids 1 Laboratory Tests 07/24/20 04:00: White Blood Count 11.3H, Red Blood Count 2.51L, Hemoglobin 8.7L, Hematocrit 25.6L, Mean Corpuscular Volume 102H, Mean Corpuscular Hemoglobin 34.8H, Mean Corpuscular Hemoglobin Concent 34.1, Red Cell Distribution Width 15.4H, Platelet Count 104L, Mean Platelet Volume 8.6, Neutrophils (%) (Auto) , Lymphocytes (%) (Auto) , Monocytes (%) (Auto) , Eosinophils (%) (Auto) , Basophils (%) (Auto) , Differential Total Cells Counted 100, Neutrophils % (Manual) 96H, Lymphocytes % (Manual) 2L, Monocytes % (Manual) 2, Eosinophils % (Manual) 0, Basophils % (Manual) 0, Band Neutrophils 0, Platelet Estimate DecreasedL, Platelet Morphology Normal, Polychromasia 1+, Hypochromasia 1+, Anisocytosis 1+, Sodium Level 143, Potassium Level 4.7, Chloride Level 102, Carbon Dioxide Level 33H, Anion Gap 8, Blood Urea Nitrogen 106H, Creatinine 6.5H, Estimat Glomerular Filtration Rate 6.3, Glucose Level 285#H, Calcium Level 8.8, Phosphorus Level 1.9L, Magnesium Level 2.2, Total Bilirubin 1.0, Aspartate Amino Transf (AST/SGOT) 26, Alanine Aminotransferase (ALT/SGPT) 10L, Alkaline Phosphatase 189H, Troponin I 0.622H, C-Reactive Protein, Quantitative 25.3H, Pro-B-Type Natriuretic Peptide > 69495C, Total Protein 6.4, Albumin 2.2L, Globulin 4.2, Albumin/Globulin Ratio 0.5L Height (Feet): 5 Height (Inches): 4.00 Weight (Pounds): 180 Assessment/Plan Problem List: (1) Pneumonia ICD Codes: J18.9 - Pneumonia, unspecified organism SNOMED: 349734994 (2) Hypertension ICD Codes: I10 - Essential (primary) hypertension SNOMED: 53353605 (3) Renal failure ICD Codes: N19 - Unspecified kidney failure SNOMED: 70205027 (4) Anemia in chronic kidney disease (CKD) ICD Codes: N18.9 - Chronic kidney disease, unspecified; D63.1 - Anemia in chronic kidney disease SNOMED: 836830966 (5) weakness (6) ESRD (end stage renal disease) ICD Codes: N18.6 - End stage renal disease SNOMED: 07853657 (7) Diabetic nephropathy with proteinuria ICD Codes: E11.21 - Type 2 diabetes mellitus with diabetic nephropathy SNOMED: 17970951, 993807581 Status: deteriorating Assessment/Plan: intubated no pressor poor prognoais on full ventilator support copd niddm htn esrd on hd resp failure niddm covid positive pna copd Makenna Daniel MD Jul 24, 2020 21:50
--- NOTE | 2020-07-24 23:00 | NUR ---
NURSE NOTES: Bp remained stable tolerating well hemodialysis
[2020-07-25] VITALS (39 sets, daily range): BP systolic 103–174; BP diastolic 37–62
--- NOTE | 2020-07-25 | NUR ---
NURSE NOTES: Temp 101F, cooling blanket was applied . hemodialysis was over tolerating well. 2Liters out.
--- NOTE | 2020-07-25 02:00 | NUR ---
NURSE NOTES: complete bed bath with bed changed was done.
[2020-07-25] MEDS: NovoLOG Insulin Flexpen SUBQ SCH ×5 (03:09→23:44)
--- NOTE | 2020-07-25 04:00 | NUR ---
NURSE NOTES: temp 99.4f, Am labs drawn.
[2020-07-25 05:04] LABS: HEMATOCRIT 22.7 % (37.0-47.0); MEAN CORPUSCULAR VOLUME 100 FL (80-99); PLATELET COUNT 109 K/UL (150-450); RED BLOOD COUNT 2.26 M/UL (4.20-5.40); RED CELL DISTRIBUTION WIDTH 15.4 % (11.6-14.8); WHITE BLOOD COUNT 14.3 K/UL (4.8-10.8)
[2020-07-25 05:42] LABS: ALANINE AMINOTRANSFERASE 8 U/L (12-78); ALBUMIN 2.3 G/DL (3.4-5.0); ALBUMIN/GLOBULIN RATIO 0.5 (1.0-2.7); ALKALINE PHOSPHATASE 207 U/L (46-116); ANION GAP 6 mmol/L (5-15); ASPARTATE AMINO TRANSFERASE 31 U/L (15-37); BILIRUBIN,TOTAL 1.5 MG/DL (0.2-1.0); BLOOD UREA NITROGEN < 1 mg/dL (7-18); CALCIUM 8.5 MG/DL (8.5-10.1); CARBON DIOXIDE 37 MMOL/L (21-32); CHLORIDE 98 MMOL/L (98-107); CREATININE 3.9 MG/DL (0.55-1.30); PHOSPHORUS 2.8 MG/DL (2.5-4.9); POTASSIUM 3.3 MMOL/L (3.5-5.1); SODIUM 141 MMOL/L (136-145)
[2020-07-25 05:55] LABS: BILIRUBIN,DIRECT 1.1 MG/DL (0.0-0.3)
[2020-07-25] MEDS: Piperacillin/Tazobactam 2.25 GM in D5W 55 ML IV SCH ×3 (06:00→22:16)
--- NOTE | 2020-07-25 06:00 | NUR ---
NURSE NOTES: VSS, cooling blanket off. To monitor only.
[2020-07-25] MEDS: HydrALAZINE 10mg Tab NG SCH ×2 (06:01)
[2020-07-25] MEDS: dilTIAZem HCl 60mg tab NG SCH (06:01)
--- NOTE | 2020-07-25 06:48 | Hematology/Onc Progress Note ---
Assessment/Plan Assessment/Plan Assessment/Plan 1. Pancytopenia with hx anemia due to underlying chronic disease. Have reviewed prior workup, ferritin is >1000, covid19++++ --> Continue to closely monitor. --> Transfuse if hgb <7 --> ferritin is >1000 --> give epogen, has been started 3x a week --> as per renal --> monitor for gi bleed, gi consulted --> hgb trend 7.8-->9.3->8.9->>11-->9.5->8.9->8 --> plt 42-->50-->65-->104-->109 --> smear has been reviewed --> hep and hiv neg 2. Leukopenia likely reactive process v infection v from meds --> hepatitis and hiv prior negative --> neutropenic precautions if ANC <1500 --> trending stable --> imaging reviewed and no hsm / cirrhosis noted --> wbc 2.7-->3.6->>>2->5-->8 --> ANC goal >1500 3. End-stage renal disease, on hemodialysis three times a week. --> renal consulted --> continue hd 4. History of coronary artery disease. --> cards reviewed --> diuresis prn 5. History of anemia due to low B12, low iron --> b12 is currently within normal limits --> reobtain q6mo 6. Dizziness and unsteady gait 7. Covid 19 --> rx per id 8. DVt ppsx with SCDs Greatly appreciate consultation and Selvin RN Subjective Constitutional: Denies: no symptoms, chills, fever, malaise, weakness, other HEENT: Denies: no symptoms, eye pain, blurred vision, tearing, double vision, ear pain, ear discharge, nose pain, nose congestion, throat pain, throat swelling, mouth pain, mouth swelling, other Cardiovascular: Denies: no symptoms, chest pain, edema, irregular heart rate, lightheadedness, palpitations, syncope, other Respiratory: Denies: no symptoms, cough, shortness of breath, SOB with excertion, SOB at rest, sputum, wheezing, other Genitourinary: Denies: no symptoms, burning, discharge, frequency, flank pain, hematuria, incontinence, pain, urgency, other Neurologic/Psychiatric: Denies: no symptoms, anxiety, depressed, emotional problems, headache, numbness, paresthesia, pre-existing deficit, seizure, tingling, tremors, weakness, other Endocrine: Denies: no symptoms, excessive sweating, flushing, intolerance to cold, intolerance to heat, increased hunger, increased thirst, increased urine, unexplained weight gain, unexplained weight loss, other Allergies: Coded Allergies: No Known Allergies (Unverified , 05/12/17) Subjective 07/19 meds noted, s/p hd, bp has improved, no bleeding, labs reviewed 07/20 labs are noted, no bleeding, meds reviewed, no major changes, hgb 9.5 07/22 remains in the icu, no bleeding, meds reviewed, on nc 07/23 labs noted, no bleeding, in icu, hgb 8.7, plt 90 07/24 is intubated, hgb 11, no bleeding, plt are better, meds reviewed 07/25 remains on zosyn, labs are noted, no bleeding, icu, meds ntoed, s/p hd yesterday with renal Objective Objective Current Medications Medications (Trade) Dose Ordered Sig/Toya Route PRN Reason Start Time Stop Time Status Last Admin Dose Admin Acetaminophen (Tylenol) 500 mg Q4HR PRN ORAL For Pain 07/17/20 00:00 08/16/20 00:00 07/24/20 03:39 Acetaminophen (Tylenol) 500 mg Q8H PRN ORAL FHMP 07/16/20 22:45 08/15/20 22:44 07/24/20 19:03 Albuterol Sulfate (Proventil MDI) 2 puff Q4H PRN INH Shortness of Breath 07/16/20 19:00 10/14/20 18:59 Chlorhexidine Gluconate (Yessi-Hex 2%) 1 applic DAILY@1999 TOPIC 07/21/20 20:00 10/19/20 19:59 07/24/20 20:06 Clonidine HCl (Catapres Tab) 0.1 mg Q4H PRN NG bp over 165 syst 07/21/20 12:00 10/14/20 22:44 Dexamethasone Sodium Phosphate (Decadron 10mg/ ml Inj) 6 mg DAILY IV 07/20/20 12:15 07/29/20 09:01 07/24/20 08:47 Dextrose (Dextrose 50%) 25 ml Q30M PRN IV Hypoglycemia 07/22/20 08:00 10/20/20 07:59 Dextrose (Dextrose 50%) 50 ml Q30M PRN IV Hypoglycemia 07/22/20 08:00 10/20/20 07:59 Diltiazem HCl (Cardizem Tab) 60 mg EVERY 8 HOURS NG 07/24/20 14:00 08/16/20 13:59 07/25/20 06:01 Docusate Sodium (Colace) 100 mg THREE TIMES A DAY NG 07/21/20 13:00 08/20/20 12:59 07/24/20 17:53 Haloperidol Lactate (Haldol) 5 mg Q6H PRN IM Agitation 07/17/20 17:30 08/31/20 17:29 07/18/20 21:34 Hydralazine HCl (Apresoline) 10 mg EVERY 6 HOURS NG 07/24/20 12:00 10/15/20 05:59 07/25/20 06:01 Insulin Aspart (NovoLOG) Q6HR SUBQ 07/22/20 08:15 10/20/20 11:29 07/25/20 06:03 Insulin Detemir (Levemir) 12 units Q12HR SUBQ 07/24/20 09:00 10/20/20 09:59 07/24/20 21:00 Lorazepam (Ativan 2mg/ml 1ml) 1 mg Q4H PRN IV For Anxiety 07/20/20 22:15 07/27/20 22:14 07/23/20 00:44 Pantoprazole (Protonix) 40 mg EVERY 12 HOURS IVP 07/21/20 21:00 08/20/20 20:59 07/24/20 21:00 Piperacillin Sod/ Tazobactam Sod 2.25 gm/Dextrose 55 ml @ 110 mls/hr Q8HR IV 07/24/20 14:00 07/29/20 13:59 07/25/20 06:00 Quetiapine Fumarate (SEROqueL) 50 mg Q12HR ORAL 07/17/20 14:00 08/31/20 13:59 07/24/20 21:34 Last 24 Hour Vital Signs Date Time Temp Pulse Resp B/P (MAP) Pulse Ox O2 Delivery O2 Flow Rate FiO2 07/25/20 06:01 94 144/45 07/25/20 06:01 144/56 07/25/20 05:00 96 20 144/46 (78) 100 07/25/20 04:00 99.4 93 16 136/48 (77) 100 07/25/20 04:00 100 07/25/20 04:00 81 07/25/20 03:30 106 25 100 07/25/20 03:00 100 20 149/46 (80) 100 07/25/20 02:30 96 18 136/43 (74) 99 07/25/20 02:25 112 23 128/52 (77) 94 07/25/20 02:20 151 28 141/58 (85) 94 07/25/20 02:15 108 23 156/53 (87) 95 07/25/20 02:10 150 20 147/62 (90) 95 07/25/20 02:05 120 26 138/46 (76) 93 07/25/20 02:00 150 25 137/61 (86) 93 07/25/20 01:55 109 24 136/59 (84) 94 07/25/20 01:50 126 25 151/56 (87) 94 07/25/20 01:45 125 24 136/55 (82) 93 07/25/20 01:40 117 24 140/60 (86) 95 07/25/20 01:35 104 24 135/54 (81) 94 07/25/20 01:30 107 24 143/53 (83) 93 07/25/20 01:25 102 25 154/61 (92) 94 07/25/20 01:20 123 22 148/47 (80) 94 07/25/20 01:15 100 23 142/60 (87) 95 07/25/20 01:10 120 21 152/58 (89) 95 07/25/20 01:05 108 19 155/50 (85) 95 07/25/20 01:00 100 23 174/47 (89) 95 07/25/20 00:30 Mechanical Ventilator 96 07/25/20 00:00 100 07/25/20 00:00 143/45 07/25/20 00:00 81 07/24/20 23:51 80 21 133/42 (72) 93 07/24/20 23:30 86 22 100 07/24/20 22:00 88 21 133/42 (72) 93 07/24/20 21:34 91 147/47 07/24/20 21:00 98 18 132/48 (76) 100 07/24/20 21:00 Mechanical Ventilator 94 07/24/20 20:00 93 07/24/20 20:00 102.0 95 14 119/44 (69) 98 07/24/20 20:00 100 07/24/20 19:45 101.0 07/24/20 19:30 89 26 100 07/24/20 19:00 106 21 130/45 (73) 93 07/24/20 18:00 97 26 119/42 (67) 96 07/24/20 17:54 133/49 07/24/20 16:00 93 07/24/20 16:00 101.0 07/24/20 16:00 93 19 129/44 (72) 95 07/24/20 16:00 100 07/24/20 15:00 90 19 109/41 (63) 95 07/24/20 14:34 84 16 100 07/24/20 14:02 96 18 135/51 (79) 95 07/24/20 13:37 86 130/50 07/24/20 13:00 88 26 133/47 (75) 95 07/24/20 12:18 130/50 07/24/20 12:09 99.4 86 15 130/50 (76) 97 07/24/20 12:00 88 07/24/20 12:00 100 07/24/20 11:00 83 10 109/43 (65) 100 07/24/20 10:55 82 16 100 07/24/20 10:00 79 17 102/39 (60) 100 07/24/20 09:00 80 16 115/44 (67) 100 07/24/20 08:00 100 07/24/20 08:00 97.3 78 16 107/42 (63) 100 07/24/20 08:00 78 07/24/20 07:15 80 16 100 07/24/20 07:00 80 16 114/39 (64) 100 07/24/20 06:00 117/99 07/24/20 06:00 87 117/99 12/22/20 06:00 98.7 84 17 114/39 (64) 100 07/24/20 05:00 100 17 125/43 (70) 97 07/24/20 04:00 100 07/24/20 04:00 99.5 87 20 117/99 (105) 07/24/20 03:56 98 23 100 07/24/20 03:54 101 07/24/20 03:30 102.0 07/24/20 03:00 101 24 145/48 (80) 94 07/24/20 02:00 102 28 152/55 (87) 94 07/24/20 01:00 111 28 147/55 (85) 96 07/24/20 00:32 109 07/24/20 00:00 99.6 112 25 153/55 (87) 98 07/24/20 00:00 100 07/23/20 23:42 110 19 100 07/23/20 23:32 112 149/53 07/23/20 23:00 112 27 154/56 (88) 98 07/23/20 22:26 147/55 07/23/20 22:00 111 28 147/55 (85) 96 07/23/20 21:00 100 07/23/20 21:00 107 24 147/52 (83) 97 07/23/20 20:00 98.7 110 26 151/55 (87) 97 07/23/20 19:47 83 07/23/20 19:29 108 22 100 07/23/20 19:00 110 27 136/66 (89) 96 07/23/20 18:00 105 19 142/54 (83) 100 07/23/20 17:38 97 163/52 07/23/20 17:00 95 23 156/58 (90) 99 07/23/20 17:00 95 23 156/58 (90) 99 07/23/20 16:00 99.9 99 26 155/49 (84) 98 07/23/20 16:00 110 07/23/20 16:00 100 07/23/20 16:00 Mechanical Ventilator 07/23/20 16:00 100 07/23/20 16:00 99 26 155/49 (84) 98 07/23/20 15:00 98 22 151/55 (87) 98 07/23/20 15:00 98 22 151/55 (87) 98 07/23/20 14:45 105 25 100 07/23/20 14:00 93 20 137/47 (77) 100 07/23/20 14:00 93 20 137/47 (77) 100 07/23/20 13:36 145/53 07/23/20 13:00 87 16 141/45 (77) 100 07/23/20 13:00 87 16 141/45 (77) 100 07/23/20 12:42 91 140/47 07/23/20 12:00 99.2 94 21 140/46 (77) 94 07/23/20 12:00 94 07/23/20 12:00 100 07/23/20 12:00 100 07/23/20 12:00 Mechanical Ventilator 07/23/20 12:00 94 21 140/46 (77) 94 07/23/20 11:00 94 25 132/57 (82) 94 07/23/20 11:00 94 25 132/57 (82) 94 07/23/20 10:50 96 24 100 07/23/20 10:00 91 22 138/40 (72) 100 07/23/20 10:00 91 22 138/40 (72) 100 07/23/20 09:00 90 19 141/46 (77) 94 07/23/20 09:00 90 19 141/46 (77) 94 07/23/20 08:31 100 07/23/20 08:00 Mechanical Ventilator 07/23/20 08:00 98.0 91 20 138/45 (76) 94 07/23/20 08:00 100 07/23/20 08:00 91 07/23/20 08:00 101.0 91 20 138/45 (76) 94 07/23/20 08:00 100 07/23/20 07:06 93 20 100 07/23/20 07:00 90 22 146/47 (80) 94 Intake and Output 07/24/20 07/25/20 19:00 07:00 Intake Total 860 ml 600 ml Output Total 1 ml Balance 859 ml 600 ml Free Water 200 ml 300 ml Tube Feeding 360 ml 300 ml Other 300 ml Stool Total 1 ml # Bowel Movements 1 Labs Test 07/22/20 09:46 07/23/20 00:13 07/23/20 04:10 07/23/20 08:09 Arterial Blood pH 7.306 (7.350-7.450) 7.414 (7.350-7.450) Arterial Blood Partial Pressure CO2 51.7 mmHg (35.0-45.0) 55.8 mmHg (35.0-45.0) Arterial Blood Partial Pressure O2 44.4 mmHg (75.0-100.0) 46.3 mmHg (75.0-100.0) Arterial Blood HCO3 25.2 mmol/L (22.0-26.0) 34.9 mmol/L (22.0-26.0) Arterial Blood Oxygen Saturation 72.8 % (95-100) 82.8 % (95-100) Arterial Blood Base Excess -1.4 (-2-2) 9 (-2-2) Faheem Test Positive Positive POC Whole Blood Glucose 170 MG/DL (74-106) White Blood Count 8.9 K/UL (4.8-10.8) Red Blood Count 2.58 M/UL (4.20-5.40) Hemoglobin 8.7 G/DL (12.0-16.0) Hematocrit 26.5 % (37.0-47.0) Mean Corpuscular Volume 102 FL (80-99) Mean Corpuscular Hemoglobin 33.8 PG (27.0-31.0) Mean Corpuscular Hemoglobin Concent 33.0 G/DL (32.0-36.0) Red Cell Distribution Width 14.7 % (11.6-14.8) Platelet Count 90 K/UL (150-450) Mean Platelet Volume 8.7 FL (6.5-10.1) Neutrophils (%) (Auto) % (45.0-75.0) Lymphocytes (%) (Auto) % (20.0-45.0) Monocytes (%) (Auto) % (1.0-10.0) Eosinophils (%) (Auto) % (0.0-3.0) Basophils (%) (Auto) % (0.0-2.0) Differential Total Cells Counted 100 Neutrophils % (Manual) 96 % (45-75) Lymphocytes % (Manual) 1 % (20-45) Monocytes % (Manual) 3 % (1-10) Eosinophils % (Manual) 0 % (0-3) Basophils % (Manual) 0 % (0-2) Band Neutrophils 0 % (0-8) Platelet Estimate Decreased Platelet Morphology Normal Hypochromasia 1+ Anisocytosis 1+ Macrocytosis 1+ Sodium Level 145 MMOL/L (136-145) Potassium Level 3.8 MMOL/L (3.5-5.1) Chloride Level 105 MMOL/L (98-107) Carbon Dioxide Level 36 MMOL/L (21-32) Anion Gap 4 mmol/L (5-15) Blood Urea Nitrogen 72 mg/dL (7-18) Creatinine 4.9 MG/DL (0.55-1.30) Estimat Glomerular Filtration Rate 8.8 mL/min (>60) Glucose Level 140 MG/DL (74-106) Uric Acid 4.2 MG/DL (2.6-7.2) Calcium Level 8.6 MG/DL (8.5-10.1) Phosphorus Level 1.1 MG/DL (2.5-4.9) Magnesium Level 2.1 MG/DL (1.8-2.4) Total Bilirubin 1.1 MG/DL (0.2-1.0) Direct Bilirubin 0.5 MG/DL (0.0-0.3) Gamma Glutamyl Transpeptidase 590 U/L (5-85) Aspartate Amino Transf (AST/SGOT) 29 U/L (15-37) Alanine Aminotransferase (ALT/SGPT) 13 U/L (12-78) Alkaline Phosphatase 198 U/L (46-116) Lactate Dehydrogenase 422 U/L (81-234) C-Reactive Protein, Quantitative 43.1 mg/dL (0.00-0.90) Total Protein 6.3 G/DL (6.4-8.2) Albumin 2.3 G/DL (3.4-5.0) Test 07/23/20 12:08 07/24/20 04:00 07/24/20 21:50 07/25/20 04:05 Arterial Blood pH 7.342 (7.350-7.450) Arterial Blood Partial Pressure CO2 57.9 mmHg (35.0-45.0) Arterial Blood Partial Pressure O2 55.7 mmHg (75.0-100.0) Arterial Blood HCO3 30.7 mmol/L (22.0-26.0) Arterial Blood Oxygen Saturation 84.4 % (95-100) Arterial Blood Base Excess 4.1 (-2-2) Faheem Test Positive White Blood Count 11.3 K/UL (4.8-10.8) 14.3 K/UL (4.8-10.8) Red Blood Count 2.51 M/UL (4.20-5.40) 2.26 M/UL (4.20-5.40) Hemoglobin 8.7 G/DL (12.0-16.0) 8.0 G/DL (12.0-16.0) Hematocrit 25.6 % (37.0-47.0) 22.7 % (37.0-47.0) Mean Corpuscular Volume 102 FL (80-99) 100 FL (80-99) Mean Corpuscular Hemoglobin 34.8 PG (27.0-31.0) 35.6 PG (27.0-31.0) Mean Corpuscular Hemoglobin Concent 34.1 G/DL (32.0-36.0) 35.5 G/DL (32.0-36.0) Red Cell Distribution Width 15.4 % (11.6-14.8) 15.4 % (11.6-14.8) Platelet Count 104 K/UL (150-450) 109 K/UL (150-450) Mean Platelet Volume 8.6 FL (6.5-10.1) 8.7 FL (6.5-10.1) Neutrophils (%) (Auto) % (45.0-75.0) % (45.0-75.0) Lymphocytes (%) (Auto) % (20.0-45.0) % (20.0-45.0) Monocytes (%) (Auto) % (1.0-10.0) % (1.0-10.0) Eosinophils (%) (Auto) % (0.0-3.0) % (0.0-3.0) Basophils (%) (Auto) % (0.0-2.0) % (0.0-2.0) Differential Total Cells Counted 100 Neutrophils % (Manual) 96 % (45-75) Lymphocytes % (Manual) 2 % (20-45) Monocytes % (Manual) 2 % (1-10) Eosinophils % (Manual) 0 % (0-3) Basophils % (Manual) 0 % (0-2) Band Neutrophils 0 % (0-8) Platelet Estimate Decreased Platelet Morphology Normal Polychromasia 1+ Hypochromasia 1+ Anisocytosis 1+ Sodium Level 143 MMOL/L (136-145) 141 MMOL/L (136-145) Potassium Level 4.7 MMOL/L (3.5-5.1) 3.3 MMOL/L (3.5-5.1) Chloride Level 102 MMOL/L (98-107) 98 MMOL/L (98-107) Carbon Dioxide Level 33 MMOL/L (21-32) 37 MMOL/L (21-32) Anion Gap 8 mmol/L (5-15) 6 mmol/L (5-15) Blood Urea Nitrogen 106 mg/dL (7-18) < 1 mg/dL (7-18) Creatinine 6.5 MG/DL (0.55-1.30) 3.9 MG/DL (0.55-1.30) Estimat Glomerular Filtration Rate 6.3 mL/min (>60) 11.4 mL/min (>60) Glucose Level 285 MG/DL (74-106) 200 MG/DL (74-106) Calcium Level 8.8 MG/DL (8.5-10.1) 8.5 MG/DL (8.5-10.1) Phosphorus Level 1.9 MG/DL (2.5-4.9) 2.8 MG/DL (2.5-4.9) Magnesium Level 2.2 MG/DL (1.8-2.4) 2.0 MG/DL (1.8-2.4) Total Bilirubin 1.0 MG/DL (0.2-1.0) 1.5 MG/DL (0.2-1.0) Aspartate Amino Transf (AST/SGOT) 26 U/L (15-37) 31 U/L (15-37) Alanine Aminotransferase (ALT/SGPT) 10 U/L (12-78) 8 U/L (12-78) Alkaline Phosphatase 189 U/L (46-116) 207 U/L (46-116) Troponin I 0.622 ng/mL (0.000-0.056) 0.497 ng/mL (0.000-0.056) C-Reactive Protein, Quantitative 25.3 mg/dL (0.00-0.90) 26.1 mg/dL (0.00-0.90) Pro-B-Type Natriuretic Peptide > 62779 pg/mL (0-125) Total Protein 6.4 G/DL (6.4-8.2) 6.5 G/DL (6.4-8.2) Albumin 2.2 G/DL (3.4-5.0) 2.3 G/DL (3.4-5.0) Globulin 4.2 g/dL 4.2 g/dL Albumin/Globulin Ratio 0.5 (1.0-2.7) 0.5 (1.0-2.7) Direct Bilirubin 1.1 MG/DL (0.0-0.3) Height (Feet): 5 Height (Inches): 4.00 Weight (Pounds): 180 Objective Physical Exam General Appearance: alert, obese, Chronically Ill Neck: full range of motion Respiratory: wheezing Cardiovascular: edema Gastrointestinal: normal inspection, soft 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
--- NOTE | 2020-07-25 07:22 | NUR ---
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 RECEIVED PT WITH HOB ELEVATED 45 DEGREE LETHARGIC ,ORALLY ENTUBATED ET SIZE 7.5,SABA 24 AT RT SIDE.PT TOLERATING WELL CURRENTS VENT SETTINGS AC 16, TV 500,FIO2 100%, PEEP 15, O2 SAT 100%. PT RECEIVING NEPRO 30CC/HRS VIA GT TOLERATING WELL ,NO RESIDUAL NOTE. IV SHUNT ON SHAMEKA WITH DRY DSG INTACT GOOD BRUIT AND THRILL NOTED. TLC ON RT FEMORAL AREA INTACT. FULL BODY ASSESSMENT DONE AND PT REPOSITIONED IN BED TO PROVIDE COMFORT AND TO PREVENT FURTHER SKIN BREAK DOWN. PT WITH BILAT SOFT WRIST RESTRAINTS TO PREVENT FROM PULLING MEDICAL DEVICES.PROVIDE ROM TO ALL EXT,S . PT REMAINS FREE OF INJURIES AT THIS TIME. WILL CONT TO MONITOR.
--- NOTE | 2020-07-25 07:33 | NUR ---
NURSE HAND-OFF REPORT: Latest Vital Signs: Temperature 99.4 , Pulse 94 , B/P 144 /45 , Respiratory Rate 20 , O2 SAT 100 , Nasal Cannula, O2 Flow Rate 3.0 . Vital Sign Comment: EKG Rhythm: Sinus Rhythm Rhythm change?: N Notified?: Roxanne Gatica MD Response: Latest Elizabeth Fall Score: 50 Fall Risk: High Risk Safety Measures: Call light Within Reach, Bed Alarm Zone 2, Side Rails Side Rails x2, Bed position Low and Locked. Fall Precautions: Yellow Socks Yellow Gown Door Sign Patient Fall Education Report given to .
[2020-07-25 08:57] LABS: CALCIUM 8.3 MG/DL (8.5-10.1); CREATININE 3.9 MG/DL (0.55-1.30); POTASSIUM 3.4 MMOL/L (3.5-5.1)
[2020-07-25 09:09] LABS: ALBUMIN 2.3 G/DL (3.4-5.0); ALBUMIN/GLOBULIN RATIO 0.6 (1.0-2.7); BILIRUBIN,TOTAL 1.5 MG/DL (0.2-1.0); PHOSPHORUS 2.9 MG/DL (2.5-4.9)
--- NOTE | 2020-07-25 09:09 | General Progress Note ---
Subjective ROS Limited/Unobtainable: No Allergies: Coded Allergies: No Known Allergies (Unverified , 05/12/17) Objective Last 24 Hour Vital Signs Date Time Temp Pulse Resp B/P (MAP) Pulse Ox O2 Delivery O2 Flow Rate FiO2 07/25/20 06:01 94 144/45 07/25/20 06:01 144/56 07/25/20 06:00 87 20 148/50 (82) 100 07/25/20 05:00 96 20 144/46 (78) 100 07/25/20 04:00 99.4 93 16 136/48 (77) 100 07/25/20 04:00 100 07/25/20 04:00 81 07/25/20 03:30 106 25 100 07/25/20 03:00 100 20 149/46 (80) 100 07/25/20 02:30 96 18 136/43 (74) 99 07/25/20 02:25 112 23 128/52 (77) 94 07/25/20 02:20 151 28 141/58 (85) 94 07/25/20 02:15 108 23 156/53 (87) 95 07/25/20 02:10 150 20 147/62 (90) 95 07/25/20 02:05 120 26 138/46 (76) 93 07/25/20 02:00 150 25 137/61 (86) 93 07/25/20 01:55 109 24 136/59 (84) 94 07/25/20 01:50 126 25 151/56 (87) 94 07/25/20 01:45 125 24 136/55 (82) 93 07/25/20 01:40 117 24 140/60 (86) 95 07/25/20 01:35 104 24 135/54 (81) 94 07/25/20 01:30 107 24 143/53 (83) 93 07/25/20 01:25 102 25 154/61 (92) 94 07/25/20 01:20 123 22 148/47 (80) 94 07/25/20 01:15 100 23 142/60 (87) 95 07/25/20 01:10 120 21 152/58 (89) 95 07/25/20 01:05 108 19 155/50 (85) 95 07/25/20 01:00 100 23 174/47 (89) 95 07/25/20 00:30 Mechanical Ventilator 96 07/25/20 00:00 100 07/25/20 00:00 143/45 07/25/20 00:00 81 07/24/20 23:51 80 21 133/42 (72) 93 07/24/20 23:30 86 22 100 07/24/20 22:00 88 21 133/42 (72) 93 07/24/20 21:34 91 147/47 07/24/20 21:00 98 18 132/48 (76) 100 07/24/20 21:00 Mechanical Ventilator 94 07/24/20 20:00 93 07/24/20 20:00 102.0 95 14 119/44 (69) 98 07/24/20 20:00 100 07/24/20 19:45 101.0 07/24/20 19:30 89 26 100 07/24/20 19:00 106 21 130/45 (73) 93 07/24/20 18:00 97 26 119/42 (67) 96 07/24/20 17:54 133/49 07/24/20 16:00 93 07/24/20 16:00 101.0 07/24/20 16:00 93 19 129/44 (72) 95 07/24/20 16:00 100 07/24/20 15:00 90 19 109/41 (63) 95 07/24/20 14:34 84 16 100 07/24/20 14:02 96 18 135/51 (79) 95 07/24/20 13:37 86 130/50 07/24/20 13:00 88 26 133/47 (75) 95 07/24/20 12:18 130/50 07/24/20 12:09 99.4 86 15 130/50 (76) 97 07/24/20 12:00 88 07/24/20 12:00 100 07/24/20 11:00 83 10 109/43 (65) 100 07/24/20 10:55 82 16 100 07/24/20 10:00 79 17 102/39 (60) 100 Intake and Output 07/24/20 07/25/20 19:00 07:00 Intake Total 860 ml 685 ml Output Total 1 ml Balance 859 ml 685 ml Free Water 200 ml 300 ml IV Total 55 ml Tube Feeding 360 ml 330 ml Other 300 ml Stool Total 1 ml # Bowel Movements 1 Laboratory Tests 07/24/20 21:50: POC Whole Blood Glucose [Pending] 07/25/20 04:05: White Blood Count 14.3H, Red Blood Count 2.26L, Hemoglobin 8.0L, Hematocrit 22.7L, Mean Corpuscular Volume 100H, Mean Corpuscular Hemoglobin 35.6H, Mean Corpuscular Hemoglobin Concent 35.5, Red Cell Distribution Width 15.4H, Platelet Count 109L, Mean Platelet Volume 8.7, Neutrophils (%) (Auto) , Lymphocytes (%) (Auto) , Monocytes (%) (Auto) , Eosinophils (%) (Auto) , Basophils (%) (Auto) , Neutrophils % (Manual) [Pending], Lymphocytes % (Manual) [Pending], Platelet Estimate [Pending], Platelet Morphology [Pending], Sodium Level 141, Potassium Level 3.4L, Chloride Level 99, Carbon Dioxide Level 38H, Anion Gap 4L, Blood Urea Nitrogen 61H, Creatinine 3.9H, Estimat Glomerular Filtration Rate 11.4, G lucose Level 200H, Calcium Level 8.3L, Phosphorus Level [Pending], Magnesium Level 2.0, Total Bilirubin [Pending], Direct Bilirubin 1.1H, Aspartate Amino Transf (AST/SGOT) [Pending], Alanine Aminotransferase (ALT/SGPT) [Pending], Alkaline Phosphatase [Pending], Troponin I 0.497H, C-Reactive Protein, Quantitative 26.1H, Pro-B-Type Natriuretic Peptide > 01462D, Total Protein [Pending], Albumin [Pending], Globulin [Pending], Albumin/Globulin Ratio 0.5L Height (Feet): 5 Height (Inches): 4.00 Weight (Pounds): 180 General Appearance: no apparent distress EENT: normal ENT inspection Neck: supple Cardiovascular: normal rate Respiratory/Chest: decreased breath sounds Abdomen: normal bowel sounds, non tender, soft Extremities: non-tender Assessment/Plan Status: deteriorating Assessment/Plan: Assessment/Plan Assessment/Plan Status: deteriorating Assessment/Plan: Assessment - Recurrent GI bleed - anemia - s/p multiple endoscopies and colonoscopies this year - resp failure - COPD - COVID PNA - abnormal LFT - presumed COVID related - DM - Poor Px Recommendations - PPI BID - Tube feeds - follow labs - HD - No plans for endoscopy per discussion with family Lito Cervantes MD Jul 25, 2020 09:09
[2020-07-25] MEDS: Pantoprazole Inj IVP SCH ×2 (09:40→20:51)
[2020-07-25] MEDS: Docusate 100mg/10ml Liq NG SCH ×3 (09:40→18:39)
[2020-07-25] MEDS: dexAMETHasone 10mg/ml Inj IV SCH (09:40)
[2020-07-25] MEDS: Levemir Flexpen SUBQ SCH ×2 (09:49→20:50)
--- NOTE | 2020-07-25 10:57 | Pulmonology Progress Note ---
Subjective ROS Limited/Unobtainable: No Interval Events: seen in ICU; remains intubated Constitutional: Reports: fever, other - [id number] HEENT: Repors: no symptoms Respiratory: Reports: no symptoms Cardiovascular: Reports: no symptoms Gastrointestinal/Abdominal: Reports: no symptoms Genitourinary: Reports: no symptoms Allergies: Coded Allergies: No Known Allergies (Unverified , 05/12/17) Objective Last 24 Hour Vital Signs Date Time Temp Pulse Resp B/P (MAP) Pulse Ox O2 Delivery O2 Flow Rate FiO2 07/25/20 06:01 94 144/45 07/25/20 06:01 144/56 07/25/20 06:00 87 20 148/50 (82) 100 07/25/20 05:00 96 20 144/46 (78) 100 07/25/20 04:00 99.4 93 16 136/48 (77) 100 07/25/20 04:00 100 07/25/20 04:00 81 07/25/20 03:30 106 25 100 07/25/20 03:00 100 20 149/46 (80) 100 07/25/20 02:30 96 18 136/43 (74) 99 07/25/20 02:25 112 23 128/52 (77) 94 07/25/20 02:20 151 28 141/58 (85) 94 07/25/20 02:15 108 23 156/53 (87) 95 07/25/20 02:10 150 20 147/62 (90) 95 07/25/20 02:05 120 26 138/46 (76) 93 07/25/20 02:00 150 25 137/61 (86) 93 07/25/20 01:55 109 24 136/59 (84) 94 07/25/20 01:50 126 25 151/56 (87) 94 07/25/20 01:45 125 24 136/55 (82) 93 07/25/20 01:40 117 24 140/60 (86) 95 07/25/20 01:35 104 24 135/54 (81) 94 07/25/20 01:30 107 24 143/53 (83) 93 07/25/20 01:25 102 25 154/61 (92) 94 07/25/20 01:20 123 22 148/47 (80) 94 07/25/20 01:15 100 23 142/60 (87) 95 07/25/20 01:10 120 21 152/58 (89) 95 07/25/20 01:05 108 19 155/50 (85) 95 07/25/20 01:00 100 23 174/47 (89) 95 07/25/20 00:30 Mechanical Ventilator 96 07/25/20 00:00 100 07/25/20 00:00 143/45 07/25/20 00:00 81 07/24/20 23:51 80 21 133/42 (72) 93 07/24/20 23:30 86 22 100 07/24/20 22:00 88 21 133/42 (72) 93 07/24/20 21:34 91 147/47 07/24/20 21:00 98 18 132/48 (76) 100 07/24/20 21:00 Mechanical Ventilator 94 07/24/20 20:00 93 07/24/20 20:00 102.0 95 14 119/44 (69) 98 07/24/20 20:00 100 07/24/20 19:45 101.0 07/24/20 19:30 89 26 100 07/24/20 19:00 106 21 130/45 (73) 93 07/24/20 18:00 97 26 119/42 (67) 96 07/24/20 17:54 133/49 07/24/20 16:00 93 07/24/20 16:00 101.0 07/24/20 16:00 93 19 129/44 (72) 95 07/24/20 16:00 100 07/24/20 15:00 90 19 109/41 (63) 95 07/24/20 14:34 84 16 100 07/24/20 14:02 96 18 135/51 (79) 95 07/24/20 13:37 86 130/50 07/24/20 13:00 88 26 133/47 (75) 95 07/24/20 12:18 130/50 07/24/20 12:09 99.4 86 15 130/50 (76) 97 07/24/20 12:00 88 07/24/20 12:00 100 07/24/20 11:00 83 10 109/43 (65) 100 07/24/20 10:55 82 16 100 Intake and Output 12/22/20 12/23/20 19:00 07:00 Intake Total 860 ml 685 ml Output Total 1 ml Balance 859 ml 685 ml Free Water 200 ml 300 ml IV Total 55 ml Tube Feeding 360 ml 330 ml Other 300 ml Stool Total 1 ml # Bowel Movements 1 General Appearance: WD/WN, no acute distress, other - intubation HEENT: normocephalic Respiratory: chest wall non-tender, crackles/rales Cardiovascular: normal rate, regular rhythm Microbiology Date/Time Source Procedure Growth Status 07/23/20 03:30 Sputum Gram Stain - Final Complete 07/23/20 03:30 Sputum Culture - Final Елена Albicans Usual Respiratory Bruna Complete Laboratory Tests 07/24/20 21:50: POC Whole Blood Glucose [Pending] 07/25/20 04:05: White Blood Count 14.3H, Red Blood Count 2.26L, Hemoglobin 8.0L, Hematocrit 22.7L, Mean Corpuscular Volume 100H, Mean Corpuscular Hemoglobin 35.6H, Mean Corpuscular Hemoglobin Concent 35.5, Red Cell Distribution Width 15.4H, Platelet Count 109L, Mean Platelet Volume 8.7, Neutrophils (%) (Auto) , Lymphocytes (%) (Auto) , Monocytes (%) (Auto) , Eosinophils (%) (Auto) , Basophils (%) (Auto) , Differential Total Cells Counted 100, Neutrophils % (Manual) 94H, Lymphocytes % (Manual) 2L, Monocytes % (Manual) 4, Eosinophils % (Manual) 0, Basophils % (Manual) 0, Band Neutrophils 0, Platelet Estimate DecreasedL, Platelet Morphology Normal, Anisocytosis 1+, Macrocytosis 1+, Sodium Level 141, Potassium Level 3.4L, Chloride Level 99, Carbon Dioxide Level 38H, Anion Gap 4L, Blood Urea Nitrogen 61H, Creatinine 3.9H, Estimat Glomerular Filtration Rate 11.4, Glucose Level 200H, Calcium Level 8.3L, Phosphorus Level 2.9, Magnesium Level 2.0, Total Bilirubin 1.5H, Direct Bilirubin 1.1H, Aspartate Amino Transf (AST/SGOT) 28, Alanine Aminotransferase (ALT/SGPT) 9L, Alkaline Phosphatase 210H , Troponin I 0.497H, C-Reactive Protein, Quantitative 26.1H, Pro-B-Type Natriuretic Peptide > 90471R, Total Protein 6.4, Albumin 2.3L, Globulin 4.1, Albumin/Globulin Ratio 0.6L Current Medications Medications (Trade) Dose Ordered Sig/Toya Route PRN Reason Start Time Stop Time Status Last Admin Dose Admin Acetaminophen (Tylenol) 500 mg Q4HR PRN ORAL For Pain 07/17/20 00:00 08/16/20 00:00 07/24/20 03:39 Acetaminophen (Tylenol) 500 mg Q8H PRN ORAL FHMP 07/16/20 22:45 08/15/20 22:44 07/24/20 19:03 Albuterol Sulfate (Proventil MDI) 2 puff Q4H PRN INH Shortness of Breath 07/16/20 19:00 10/14/20 18:59 Chlorhexidine Gluconate (Yessi-Hex 2%) 1 applic DAILY@1999 TOPIC 07/21/20 20:00 10/19/20 19:59 07/24/20 20:06 Clonidine HCl (Catapres Tab) 0.1 mg Q4H PRN NG bp over 165 syst 07/21/20 12:00 10/14/20 22:44 Dexamethasone Sodium Phosphate (Decadron 10mg/ ml Inj) 6 mg DAILY IV 07/20/20 12:15 07/29/20 09:01 07/25/20 09:40 Dextrose (Dextrose 50%) 25 ml Q30M PRN IV Hypoglycemia 07/22/20 08:00 10/20/20 07:59 Dextrose (Dextrose 50%) 50 ml Q30M PRN IV Hypoglycemia 07/22/20 08:00 10/20/20 07:59 Diltiazem HCl (Cardizem Tab) 60 mg EVERY 8 HOURS NG 07/24/20 14:00 08/16/20 13:59 07/25/20 06:01 Docusate Sodium (Colace) 100 mg THREE TIMES A DAY NG 07/21/20 13:00 08/20/20 12:59 07/25/20 09:40 Haloperidol Lactate (Haldol) 5 mg Q6H PRN IM Agitation 07/17/20 17:30 08/31/20 17:29 07/18/20 21:34 Hydralazine HCl (Apresoline) 10 mg EVERY 6 HOURS NG 07/24/20 12:00 10/15/20 05:59 07/25/20 06:01 Insulin Aspart (NovoLOG) Q6HR SUBQ 07/22/20 08:15 10/20/20 11:29 07/25/20 06:03 Insulin Detemir (Levemir) 12 units Q12HR SUBQ 07/24/20 09:00 10/20/20 09:59 07/25/20 09:49 Lorazepam (Ativan 2mg/ml 1ml) 1 mg Q4H PRN IV For Anxiety 07/20/20 22:15 07/27/20 22:14 07/23/20 00:44 Pantoprazole (Protonix) 40 mg EVERY 12 HOURS IVP 07/21/20 21:00 08/20/20 20:59 07/25/20 09:40 Piperacillin Sod/ Tazobactam Sod 2.25 gm/Dextrose 55 ml @ 110 mls/hr Q8HR IV 07/24/20 14:00 07/29/20 13:59 07/25/20 06:00 Quetiapine Fumarate (SEROqueL) 50 mg Q12HR ORAL 07/17/20 14:00 08/31/20 13:59 07/25/20 09:40 Assessment/Plan Assessment/Plan Assessment/Plan 1. COVID-19 pneumonia. 2. COPD exacerbation. 3. Pneumonia - CXR shows b/l opacities - she received decadron once which has now been discontinued 4. Hypertensive emergency. - Blood pressure controlled. 5. Leukocytosis.; improving 6. Anemia. 7. Hyponatremia.; resolved 8. Hyperkalemia.; resolved 9. Hypochloridemia.; resolved 10. Hyperglycemia. 11. ESRD, on dialysis. 12. Respiratory failure; now intubated PLAN Continue O2; currently 100% Vent; AC mode On PEEP now 15; will decrease to 10 S/p HD Will check ABG and CXR in AM Rate 16 Steroids Defer Remdesivir choice to ID; renal failure precludes use Levy Allen,Levy Jenkins MD Jul 25, 2020 10:57
[2020-07-25] MEDS ORDERED: Digoxin 0.5mg/2ml Inj IVP SCH (11:45)
--- NOTE | 2020-07-25 11:48 | Nephrology Progress Note ---
Assessment/Plan Problem List: (1) Hypertensive kidney disease (2) ESRD (end stage renal disease) (3) Hyperkalemia (4) Suspected 2019 novel coronavirus infection (5) Acute respiratory failure Assessment 70-year-old female with end-stage renal disease Presented with volume overload and hyperkalemia Suspected COVID-19 virus infection Hypertensive emergency Diabetes mellitus CHF Plan July 25: Patient was dialyzed yesterday. 2 L ultrafiltrate it. Discussed with helicopter engineer today. Attempts at weaning is being tried. Patient will be dialyzed again tomorrow. In view of ejection fraction of 40 to 45% and low blood pressure will adjust the blood pressure medication dosages and give 0.25 mg digoxin IV once. Continue to monitor renal parameters. July 24: Due for dialysis today. Labs reviewed. Low phosphorus replaced. Continue pulmonary support and ID management. Medication list reviewed. BP medication adjusted. July 23: Dialyzed yesterday. Labs reviewed. ABG noted. Patient hypoxic. Vent setting adjusted by helicopter engineer. Continue current care. Dialysis tomorrow. July 22: Patient on ventilator requiring positive end expiratory pressure. Labs reviewed. Blood sugar elevated. Levemir insulin ordered. Dialysis today. Continue per consultants. July 21: Patient now in ICU. Intubated on ventilator. Was dialyzed. Blood pressure well maintained. Has NG tube. Will start medication through NG tube and start feeding. Continue per consultants. Hemodialysis as needed. July 20: Patient seen and examined. Discussed with RN. Remains encephalopathic. Poor ABG results. Patient at high risk at this stage. We will transfer patients to ICU for possible airway support. Patient due for dialysis today. Hyperkalemia probably secondary to acidosis. Will arrange for NG tube insertion and give medication through NG tube. July 19: Mental status appears slightly improved. Was dialyzed 2 days in a row. Blood pressure medication adjusted. Next dialysis tomorrow. Continue per consultants. July 18: Patient encephalopathic, was dialyzed yesterday and had 3 L removed. Will order dialysis again today. Continue per ID. Blood pressure medication adjusted. July 17: Stat hemodialysis ordered. Kayexalate for high potassium. Pulmonary support with oxygen or BiPAP as needed Blood pressure support with proper parameters Per orders Subjective ROS Limited/Unobtainable: Yes Objective Objective Last 24 Hour Vital Signs Date Time Temp Pulse Resp B/P (MAP) Pulse Ox O2 Delivery O2 Flow Rate FiO2 07/25/20 11:00 127 20 119/52 (74) 100 07/25/20 10:00 96 20 116/52 (73) 100 07/25/20 09:00 95 19 103/51 (68) 100 07/25/20 08:00 98.2 92 20 118/55 (76) 100 07/25/20 08:00 100 07/25/20 08:00 103 07/25/20 06:01 94 144/45 07/25/20 06:01 144/56 07/25/20 06:00 87 20 148/50 (82) 100 07/25/20 05:00 96 20 144/46 (78) 100 07/25/20 04:00 99.4 93 16 136/48 (77) 100 07/25/20 04:00 100 07/25/20 04:00 81 07/25/20 03:30 106 25 100 07/25/20 03:00 100 20 149/46 (80) 100 07/25/20 02:30 96 18 136/43 (74) 99 07/25/20 02:25 112 23 128/52 (77) 94 07/25/20 02:20 151 28 141/58 (85) 94 07/25/20 02:15 108 23 156/53 (87) 95 07/25/20 02:10 150 20 147/62 (90) 95 07/25/20 02:05 120 26 138/46 (76) 93 07/25/20 02:00 150 25 137/61 (86) 93 07/25/20 01:55 109 24 136/59 (84) 94 07/25/20 01:50 126 25 151/56 (87) 94 07/25/20 01:45 125 24 136/55 (82) 93 07/25/20 01:40 117 24 140/60 (86) 95 07/25/20 01:35 104 24 135/54 (81) 94 07/25/20 01:30 107 24 143/53 (83) 93 07/25/20 01:25 102 25 154/61 (92) 94 07/25/20 01:20 123 22 148/47 (80) 94 07/25/20 01:15 100 23 142/60 (87) 95 07/25/20 01:10 120 21 152/58 (89) 95 07/25/20 01:05 108 19 155/50 (85) 95 07/25/20 01:00 100 23 174/47 (89) 95 07/25/20 00:30 Mechanical Ventilator 96 07/25/20 00:00 100 07/25/20 00:00 143/45 07/25/20 00:00 81 07/24/20 23:51 80 21 133/42 (72) 93 07/24/20 23:30 86 22 100 07/24/20 22:00 88 21 133/42 (72) 93 07/24/20 21:34 91 147/47 07/24/20 21:00 98 18 132/48 (76) 100 07/24/20 21:00 Mechanical Ventilator 94 07/24/20 20:00 93 07/24/20 20:00 102.0 95 14 119/44 (69) 98 07/24/20 20:00 100 07/24/20 19:45 101.0 07/24/20 19:30 89 26 100 07/24/20 19:00 106 21 130/45 (73) 93 07/24/20 18:00 97 26 119/42 (67) 96 07/24/20 17:54 133/49 07/24/20 16:00 93 07/24/20 16:00 101.0 07/24/20 16:00 93 19 129/44 (72) 95 07/24/20 16:00 100 07/24/20 15:00 90 19 109/41 (63) 95 07/24/20 14:34 84 16 100 07/24/20 14:02 96 18 135/51 (79) 95 07/24/20 13:37 86 130/50 07/24/20 13:00 88 26 133/47 (75) 95 07/24/20 12:18 130/50 07/24/20 12:09 99.4 86 15 130/50 (76) 97 07/24/20 12:00 88 07/24/20 12:00 100 Intake and Output 07/24/20 07/25/20 19:00 07:00 Intake Total 860 ml 715 ml Output Total 1 ml Balance 859 ml 715 ml Free Water 200 ml 300 ml IV Total 55 ml Tube Feeding 360 ml 360 ml Other 300 ml Stool Total 1 ml # Bowel Movements 1 Current Medications Medications (Trade) Dose Ordered Sig/Toya Route PRN Reason Start Time Stop Time Status Last Admin Dose Admin Acetaminophen (Tylenol) 500 mg Q4HR PRN ORAL For Pain 07/17/20 00:00 08/16/20 00:00 07/24/20 03:39 Acetaminophen (Tylenol) 500 mg Q8H PRN ORAL FHMP 07/16/20 22:45 08/15/20 22:44 07/24/20 19:03 Albuterol Sulfate (Proventil MDI) 2 puff Q4H PRN INH Shortness of Breath 07/16/20 19:00 10/14/20 18:59 Chlorhexidine Gluconate (Yessi-Hex 2%) 1 applic DAILY@1999 TOPIC 07/21/20 20:00 10/19/20 19:59 07/24/20 20:06 Clonidine HCl (Catapres Tab) 0.1 mg Q4H PRN NG bp over 165 syst 07/21/20 12:00 10/14/20 22:44 Dexamethasone Sodium Phosphate (Decadron 10mg/ ml Inj) 6 mg DAILY IV 07/20/20 12:15 07/29/20 09:01 07/25/20 09:40 Dextrose (Dextrose 50%) 25 ml Q30M PRN IV Hypoglycemia 07/22/20 08:00 10/20/20 07:59 Dextrose (Dextrose 50%) 50 ml Q30M PRN IV Hypoglycemia 07/22/20 08:00 10/20/20 07:59 Diltiazem HCl (Cardizem Tab) 30 mg EVERY 8 HOURS NG 07/25/20 22:00 08/16/20 13:59 UNV Docusate Sodium (Colace) 100 mg THREE TIMES A DAY NG 07/21/20 13:00 08/20/20 12:59 07/25/20 09:40 Haloperidol Lactate (Haldol) 5 mg Q6H PRN IM Agitation 07/17/20 17:30 08/31/20 17:29 07/18/20 21:34 Insulin Aspart (NovoLOG) Q6HR SUBQ 07/22/20 08:15 10/20/20 11:29 07/25/20 06:03 Insulin Detemir (Levemir) 12 units Q12HR SUBQ 07/24/20 09:00 10/20/20 09:59 07/25/20 09:49 Lorazepam (Ativan 2mg/ml 1ml) 1 mg Q4H PRN IV For Anxiety 07/20/20 22:15 07/27/20 22:14 07/23/20 00:44 Pantoprazole (Protonix) 40 mg EVERY 12 HOURS IVP 07/21/20 21:00 08/20/20 20:59 07/25/20 09:40 Piperacillin Sod/ Tazobactam Sod 2.25 gm/Dextrose 55 ml @ 110 mls/hr Q8HR IV 07/24/20 14:00 07/29/20 13:59 07/25/20 06:00 Quetiapine Fumarate (SEROqueL) 50 mg Q12HR ORAL 07/17/20 14:00 08/31/20 13:59 07/25/20 09:40 Laboratory Tests 07/24/20 21:50: POC Whole Blood Glucose [Pending] 07/25/20 04:05: White Blood Count 14.3H, Red Blood Count 2.26L, Hemoglobin 8.0L, Hematocrit 22.7L, Mean Corpuscular Volume 100H, Mean Corpuscular Hemoglobin 35.6H, Mean Corpuscular Hemoglobin Concent 35.5, Red Cell Distribution Width 15.4H, Platelet Count 109L, Mean Platelet Volume 8.7, Neutrophils (%) (Auto) , Lymphocytes (%) (Auto) , Monocytes (%) (Auto) , Eosinophils (%) (Auto) , Basophils (%) (Auto) , Differential Total Cells Counted 100, Neutrophils % (Manual) 94H, Lymphocytes % (Manual) 2L, Monocytes % (Manual) 4, Eosinophils % (Manual) 0, Basophils % (Manual) 0, Band Neutrophils 0, Platelet Estimate DecreasedL, Platelet Morphology Normal, Anisocytosis 1+, Macrocytosis 1+, Sodium Level 141, Potassium Level 3.4L, Chloride Level 99, Carbon Dioxide Level 38H, Anion Gap 4L, Blood Urea Nitrogen 61H, Creatinine 3.9H, Estimat Glomerular Filtration Rate 11.4, Glucose Level 200H, Calcium Level 8.3L, Phosphorus Level 2.9, Magnesium Level 2.0, Total Bilirubin 1.5H, Direct Bilirubin 1.1H, Aspartate Amino Transf (AST/SGOT) 28, Alanine Aminotransferase (ALT/SGPT) 9L, Alkaline Phosphatase 210H , Troponin I 0.497H, C-Reactive Protein, Quantitative 26.1H, Pro-B-Type Natriuretic Peptide > 63343K, Total Protein 6.4, Albumin 2.3L, Globulin 4.1, Alb umin/Globulin Ratio 0.6L Height (Feet): 5 Height (Inches): 4.00 Weight (Pounds): 180 General Appearance: no apparent distress EENT: other - Intubated on ventilator Cardiovascular: tachycardia Respiratory/Chest: decreased breath sounds Abdomen: distended Francis Falk MD Jul 25, 2020 11:47
--- NOTE | 2020-07-25 12:43 | Infectious Diseases Prog Note ---
Assessment/Plan Assessment/Plan antibiotics ; zosyn A 1. COVID-19 pneumonia on 100 % Fi O2, 95 % saturation 2. End-stage renal disease on hemodialysis, 3. COPD, 4. Asthma, 5. Hypertension, 6. Diabetes mellitus 7. Systolic heart failure, 8. Aortic stenosis. 9. hypoxemic respiratory failure P 1. continue zosyn 2. continue dexamethasone day 8 3. continue isolation Subjective ROS Limited/Unobtainable: Yes Allergies: Coded Allergies: No Known Allergies (Unverified , 05/12/17) Objective Last 24 Hour Vital Signs Date Time Temp Pulse Resp B/P (MAP) Pulse Ox O2 Delivery O2 Flow Rate FiO2 07/25/20 11:00 127 20 119/52 (74) 100 07/25/20 10:00 96 20 116/52 (73) 100 07/25/20 09:00 95 19 103/51 (68) 100 07/25/20 08:00 98.2 92 20 118/55 (76) 100 07/25/20 08:00 100 07/25/20 08:00 103 07/25/20 06:01 94 144/45 07/25/20 06:01 144/56 07/25/20 06:00 87 20 148/50 (82) 100 07/25/20 05:00 96 20 144/46 (78) 100 07/25/20 04:00 99.4 93 16 136/48 (77) 100 07/25/20 04:00 100 07/25/20 04:00 81 07/25/20 03:30 106 25 100 07/25/20 03:00 100 20 149/46 (80) 100 07/25/20 02:30 96 18 136/43 (74) 99 07/25/20 02:25 112 23 128/52 (77) 94 07/25/20 02:20 151 28 141/58 (85) 94 07/25/20 02:15 108 23 156/53 (87) 95 07/25/20 02:10 150 20 147/62 (90) 95 07/25/20 02:05 120 26 138/46 (76) 93 07/25/20 02:00 150 25 137/61 (86) 93 07/25/20 01:55 109 24 136/59 (84) 94 07/25/20 01:50 126 25 151/56 (87) 94 07/25/20 01:45 125 24 136/55 (82) 93 07/25/20 01:40 117 24 140/60 (86) 95 07/25/20 01:35 104 24 135/54 (81) 94 07/25/20 01:30 107 24 143/53 (83) 93 07/25/20 01:25 102 25 154/61 (92) 94 07/25/20 01:20 123 22 148/47 (80) 94 07/25/20 01:15 100 23 142/60 (87) 95 07/25/20 01:10 120 21 152/58 (89) 95 07/25/20 01:05 108 19 155/50 (85) 95 07/25/20 01:00 100 23 174/47 (89) 95 07/25/20 00:30 Mechanical Ventilator 96 07/25/20 00:00 100 07/25/20 00:00 143/45 07/25/20 00:00 81 07/24/20 23:51 80 21 133/42 (72) 93 07/24/20 23:30 86 22 100 07/24/20 22:00 88 21 133/42 (72) 93 07/24/20 21:34 91 147/47 07/24/20 21:00 98 18 132/48 (76) 100 07/24/20 21:00 Mechanical Ventilator 94 07/24/20 20:00 93 07/24/20 20:00 102.0 95 14 119/44 (69) 98 07/24/20 20:00 100 07/24/20 19:45 101.0 07/24/20 19:30 89 26 100 07/24/20 19:00 106 21 130/45 (73) 93 07/24/20 18:00 97 26 119/42 (67) 96 07/24/20 17:54 133/49 07/24/20 16:00 93 07/24/20 16:00 101.0 07/24/20 16:00 93 19 129/44 (72) 95 07/24/20 16:00 100 07/24/20 15:00 90 19 109/41 (63) 95 07/24/20 14:34 84 16 100 07/24/20 14:02 96 18 135/51 (79) 95 07/24/20 13:37 86 130/50 07/24/20 13:00 88 26 133/47 (75) 95 Height (Feet): 5 Height (Inches): 4.00 Weight (Pounds): 180 HEENT: other - intubated Microbiology Date/Time Source Procedure Growth Status 07/23/20 03:30 Sputum Gram Stain - Final Complete 07/23/20 03:30 Sputum Culture - Final Елена Albicans Usual Respiratory Bruna Complete Laboratory Tests Test 07/24/20 21:50 07/25/20 04:05 POC Whole Blood Glucose Pending White Blood Count 14.3 K/UL (4.8-10.8) H Red Blood Count 2.26 M/UL (4.20-5.40) L Hemoglobin 8.0 G/DL (12.0-16.0) L Hematocrit 22.7 % (37.0-47.0) L Mean Corpuscular Volume 100 FL (80-99) H Mean Corpuscular Hemoglobin 35.6 PG (27.0-31.0) H Mean Corpuscular Hemoglobin Concent 35.5 G/DL (32.0-36.0) Red Cell Distribution Width 15.4 % (11.6-14.8) H Platelet Count 109 K/UL (150-450) L Mean Platelet Volume 8.7 FL (6.5-10.1) Neutrophils (%) (Auto) % (45.0-75.0) Lymphocytes (%) (Auto) % (20.0-45.0) Monocytes (%) (Auto) % (1.0-10.0) Eosinophils (%) (Auto) % (0.0-3.0) Basophils (%) (Auto) % (0.0-2.0) Differential Total Cells Counted 100 Neutrophils % (Manual) 94 % (45-75) H Lymphocytes % (Manual) 2 % (20-45) L Monocytes % (Manual) 4 % (1-10) Eosinophils % (Manual) 0 % (0-3) Basophils % (Manual) 0 % (0-2) Band Neutrophils 0 % (0-8) Platelet Estimate Decreased L Platelet Morphology Normal Anisocytosis 1+ Macrocytosis 1+ Sodium Level 141 MMOL/L (136-145) Potassium Level 3.4 MMOL/L (3.5-5.1) L Chloride Level 99 MMOL/L (98-107) Carbon Dioxide Level 38 MMOL/L (21-32) H Anion Gap 4 mmol/L (5-15) L Blood Urea Nitrogen 61 mg/dL (7-18) H Creatinine 3.9 MG/DL (0.55-1.30) H Estimat Glomerular Filtration Rate 11.4 mL/min (>60) Glucose Level 200 MG/DL (74-106) H Calcium Level 8.3 MG/DL (8.5-10.1) L Phosphorus Level 2.9 MG/DL (2.5-4.9) Magnesium Level 2.0 MG/DL (1.8-2.4) Total Bilirubin 1.5 MG/DL (0.2-1.0) H Direct Bilirubin 1.1 MG/DL (0.0-0.3) H Aspartate Amino Transf (AST/SGOT) 28 U/L (15-37) Alanine Aminotransferase (ALT/SGPT) 9 U/L (12-78) L Alkaline Phosphatase 210 U/L (46-116) H Troponin I 0.497 ng/mL (0.000-0.056) C-Reactive Protein, Quantitative 26.1 mg/dL (0.00-0.90) H Pro-B-Type Natriuretic Peptide > 43399 pg/mL (0-125) H Total Protein 6.4 G/DL (6.4-8.2) Albumin 2.3 G/DL (3.4-5.0) L Globulin 4.1 g/dL Albumin/Globulin Ratio 0.6 (1.0-2.7) L Current Medications Medications (Trade) Dose Ordered Sig/Toya Route PRN Reason Start Time Stop Time Status Last Admin Dose Admin Acetaminophen (Tylenol) 500 mg Q4HR PRN ORAL For Pain 07/17/20 00:00 08/16/20 00:00 07/24/20 03:39 Acetaminophen (Tylenol) 500 mg Q8H PRN ORAL FHMP 07/16/20 22:45 08/15/20 22:44 07/24/20 19:03 Albuterol Sulfate (Proventil MDI) 2 puff Q4H PRN INH Shortness of Breath 07/16/20 19:00 10/14/20 18:59 Chlorhexidine Gluconate (Yessi-Hex 2%) 1 applic DAILY@1999 TOPIC 07/21/20 20:00 10/19/20 19:59 07/24/20 20:06 Clonidine HCl (Catapres Tab) 0.1 mg Q4H PRN NG bp over 165 syst 07/21/20 12:00 10/14/20 22:44 Dexamethasone Sodium Phosphate (Decadron 10mg/ ml Inj) 6 mg DAILY IV 07/20/20 12:15 07/29/20 09:01 07/25/20 09:40 Dextrose (Dextrose 50%) 25 ml Q30M PRN IV Hypoglycemia 07/22/20 08:00 10/20/20 07:59 Dextrose (Dextrose 50%) 50 ml Q30M PRN IV Hypoglycemia 07/22/20 08:00 10/20/20 07:59 Digoxin (Lanoxin) 0.25 mg ONCE IVP 07/25/20 11:45 07/25/20 13:00 Diltiazem HCl (Cardizem Tab) 30 mg EVERY 8 HOURS NG 07/25/20 22:00 08/16/20 13:59 Docusate Sodium (Colace) 100 mg THREE TIMES A DAY NG 07/21/20 13:00 08/20/20 12:59 07/25/20 09:40 Haloperidol Lactate (Haldol) 5 mg Q6H PRN IM Agitation 07/17/20 17:30 08/31/20 17:29 07/18/20 21:34 Insulin Aspart (NovoLOG) Q6HR SUBQ 07/22/20 08:15 10/20/20 11:29 07/25/20 06:03 Insulin Detemir (Levemir) 12 units Q12HR SUBQ 07/24/20 09:00 10/20/20 09:59 07/25/20 09:49 Lorazepam (Ativan 2mg/ml 1ml) 1 mg Q4H PRN IV For Anxiety 07/20/20 22:15 07/27/20 22:14 07/23/20 00:44 Pantoprazole (Protonix) 40 mg EVERY 12 HOURS IVP 07/21/20 21:00 08/20/20 20:59 07/25/20 09:40 Piperacillin Sod/ Tazobactam Sod 2.25 gm/Dextrose 55 ml @ 110 mls/hr Q8HR IV 07/24/20 14:00 07/29/20 13:59 07/25/20 06:00 Quetiapine Fumarate (SEROqueL) 50 mg Q12HR ORAL 07/17/20 14:00 08/31/20 13:59 07/25/20 09:40 Regan Moon MD Jul 25, 2020 12:42
--- NOTE | 2020-07-25 13:10 | Cardiac Electrophysiology PN ---
Assessment/Plan Assessment/Plan 1. Accelerated HTN. On Cardizem 30 mg q8h , HD and p.r.n.clonidine. EF 40- 45% 2. Severe hyperkalemia. No cardiac arrhythmia was noted despite potassium of 6.8. Currently in sinus rhythm. On hemodialysis under management of Dr. Falk. 3. End-stage renal disease, now on hemodialysis. 4. Hyponatremia, sodium 129. Fluid restriction per Dr. Falk. 5. Volume overload, BNP of more than 35,000 and EF 40-45%. On HD 6. Covid PNA and resp failure on the Vent with 100% Fio2 and PEEP 15 Covid positive 07/11 and 07/17 DW RN Subjective Subjective Confused in restraints. In Covid isolation. Intubated on 100% Fio2 and PEEP 15. Getting started. Had HD yesterday Objective Last 24 Hour Vital Signs Date Time Temp Pulse Resp B/P (MAP) Pulse Ox O2 Delivery O2 Flow Rate FiO2 07/25/20 11:00 127 20 119/52 (74) 100 07/25/20 10:00 96 20 116/52 (73) 100 07/25/20 09:00 95 19 103/51 (68) 100 07/25/20 08:00 98.2 92 20 118/55 (76) 100 07/25/20 08:00 100 07/25/20 08:00 103 07/25/20 06:01 94 144/45 07/25/20 06:01 144/56 07/25/20 06:00 87 20 148/50 (82) 100 07/25/20 05:00 96 20 144/46 (78) 100 07/25/20 04:00 99.4 93 16 136/48 (77) 100 07/25/20 04:00 100 07/25/20 04:00 81 07/25/20 03:30 106 25 100 07/25/20 03:00 100 20 149/46 (80) 100 07/25/20 02:30 96 18 136/43 (74) 99 07/25/20 02:25 112 23 128/52 (77) 94 07/25/20 02:20 151 28 141/58 (85) 94 07/25/20 02:15 108 23 156/53 (87) 95 07/25/20 02:10 150 20 147/62 (90) 95 07/25/20 02:05 120 26 138/46 (76) 93 07/25/20 02:00 150 25 137/61 (86) 93 07/25/20 01:55 109 24 136/59 (84) 94 07/25/20 01:50 126 25 151/56 (87) 94 07/25/20 01:45 125 24 136/55 (82) 93 07/25/20 01:40 117 24 140/60 (86) 95 07/25/20 01:35 104 24 135/54 (81) 94 07/25/20 01:30 107 24 143/53 (83) 93 07/25/20 01:25 102 25 154/61 (92) 94 07/25/20 01:20 123 22 148/47 (80) 94 07/25/20 01:15 100 23 142/60 (87) 95 07/25/20 01:10 120 21 152/58 (89) 95 07/25/20 01:05 108 19 155/50 (85) 95 07/25/20 01:00 100 23 174/47 (89) 95 07/25/20 00:30 Mechanical Ventilator 96 07/25/20 00:00 100 07/25/20 00:00 143/45 07/25/20 00:00 81 07/24/20 23:51 80 21 133/42 (72) 93 07/24/20 23:30 86 22 100 07/24/20 22:00 88 21 133/42 (72) 93 07/24/20 21:34 91 147/47 07/24/20 21:00 98 18 132/48 (76) 100 07/24/20 21:00 Mechanical Ventilator 94 07/24/20 20:00 93 07/24/20 20:00 102.0 95 14 119/44 (69) 98 07/24/20 20:00 100 07/24/20 19:45 101.0 07/24/20 19:30 89 26 100 07/24/20 19:00 106 21 130/45 (73) 93 07/24/20 18:00 97 26 119/42 (67) 96 07/24/20 17:54 133/49 07/24/20 16:00 93 07/24/20 16:00 101.0 07/24/20 16:00 93 19 129/44 (72) 95 07/24/20 16:00 100 07/24/20 15:00 90 19 109/41 (63) 95 07/24/20 14:34 84 16 100 07/24/20 14:02 96 18 135/51 (79) 95 07/24/20 13:37 86 130/50 Intake and Output 07/24/20 07/25/20 19:00 07:00 Intake Total 860 ml 715 ml Output Total 1 ml Balance 859 ml 715 ml Free Water 200 ml 300 ml IV Total 55 ml Tube Feeding 360 ml 360 ml Other 300 ml Stool Total 1 ml # Bowel Movements 1 Laboratory Tests Test 07/24/20 21:50 07/25/20 04:05 POC Whole Blood Glucose Pending White Blood Count 14.3 K/UL (4.8-10.8) H Red Blood Count 2.26 M/UL (4.20-5.40) L Hemoglobin 8.0 G/DL (12.0-16.0) L Hematocrit 22.7 % (37.0-47.0) L Mean Corpuscular Volume 100 FL (80-99) H Mean Corpuscular Hemoglobin 35.6 PG (27.0-31.0) H Mean Corpuscular Hemoglobin Concent 35.5 G/DL (32.0-36.0) Red Cell Distribution Width 15.4 % (11.6-14.8) H Platelet Count 109 K/UL (150-450) L Mean Platelet Volume 8.7 FL (6.5-10.1) Neutrophils (%) (Auto) % (45.0-75.0) Lymphocytes (%) (Auto) % (20.0-45.0) Monocytes (%) (Auto) % (1.0-10.0) Eosinophils (%) (Auto) % (0.0-3.0) Basophils (%) (Auto) % (0.0-2.0) Differential Total Cells Counted 100 Neutrophils % (Manual) 94 % (45-75) H Lymphocytes % (Manual) 2 % (20-45) L Monocytes % (Manual) 4 % (1-10) Eosinophils % (Manual) 0 % (0-3) Basophils % (Manual) 0 % (0-2) Band Neutrophils 0 % (0-8) Platelet Estimate Decreased L Platelet Morphology Normal Anisocytosis 1+ Macrocytosis 1+ Sodium Level 141 MMOL/L (136-145) Potassium Level 3.4 MMOL/L (3.5-5.1) L Chloride Level 99 MMOL/L (98-107) Carbon Dioxide Level 38 MMOL/L (21-32) H Anion Gap 4 mmol/L (5-15) L Blood Urea Nitrogen 61 mg/dL (7-18) H Creatinine 3.9 MG/DL (0.55-1.30) H Estimat Glomerular Filtration Rate 11.4 mL/min (>60) Glucose Level 200 MG/DL (74-106) H Calcium Level 8.3 MG/DL (8.5-10.1) L Phosphorus Level 2.9 MG/DL (2.5-4.9) Magnesium Level 2.0 MG/DL (1.8-2.4) Total Bilirubin 1.5 MG/DL (0.2-1.0) H Direct Bilirubin 1.1 MG/DL (0.0-0.3) H Aspartate Amino Transf (AST/SGOT) 28 U/L (15-37) Alanine Aminotransferase (ALT/SGPT) 9 U/L (12-78) L Alkaline Phosphatase 210 U/L (46-116) H Troponin I 0.497 ng/mL (0.000-0.056) C-Reactive Protein, Quantitative 26.1 mg/dL (0.00-0.90) H Pro-B-Type Natriuretic Peptide > 39156 pg/mL (0-125) H Total Protein 6.4 G/DL (6.4-8.2) Albumin 2.3 G/DL (3.4-5.0) L Globulin 4.1 g/dL Albumin/Globulin Ratio 0.6 (1.0-2.7) L Microbiology Date/Time Source Procedure Growth Status 07/23/20 03:30 Sputum Gram Stain - Final Complete 07/23/20 03:30 Sputum Culture - Final Елена Albicans Usual Respiratory Bruna Complete Objective HEAD AND NECK: Showed no JVD.Orally intubated LUNGS: Coarse rhonchi. CARDIOVASCULAR: Regular S1 and S2 with no gallop or murmur. ABDOMEN: Soft. EXTREMITIES: No pitting edema. Zev Gatica MD Jul 25, 2020 13:10
--- NOTE | 2020-07-25 15:37 | NUR ---
NURSE NOTES: placed a telephone call to [facility] OFFICES REGARDING PT HAS ORDERS FOR H.D TOMORROW MORNING .SPOKE WITH KHALIDA CORTEZLOGISTICIAN OF [facility] AND WILL CONTACT AMADA LITTLE OR JUSTIN LITTLE . WILL CONT TO MONITOR.
[2020-07-25 16:38] LABS: CALCIUM 8.7 MG/DL (8.5-10.1); CREATININE 4.5 MG/DL (0.55-1.30); POTASSIUM 4.1 MMOL/L (3.5-5.1)
[2020-07-25] MEDS: Acetaminophen 500mg (ES) tab ORAL PRN (18:40)
--- NOTE | 2020-07-25 19:25 | NUR ---
HAND-OFF: Report given to .YURY LITTLE.
--- NOTE | 2020-07-25 19:25 | NUR ---
NURSE NOTES: pt report received from ELIS Mcnair RN. pt remains stable. pt opens eyes to slight tactile stimuli, neuro garcia, however no acute neuro distress. pt is showing ST on monitor 100, no other cardiac abnormalities. pt is oral intubated, sating 99% O2 no acute resp distress noted. pt bed, low, locked, armed, call light within reach, bed rails up times 3. will follow plan of care.
--- NOTE | 2020-07-25 20:36 | General Progress Note ---
Subjective ROS Limited/Unobtainable: Yes Allergies: Coded Allergies: No Known Allergies (Unverified , 05/12/17) Objective Last 24 Hour Vital Signs Date Time Temp Pulse Resp B/P (MAP) Pulse Ox O2 Delivery O2 Flow Rate FiO2 07/25/20 19:30 98.5 07/25/20 19:08 116 18 96 Mechanical Ventilator 100 07/25/20 18:45 116 18 100 07/25/20 18:00 109 19 111/46 (67) 99 07/25/20 17:00 129 25 129/54 (79) 97 07/25/20 16:00 100 07/25/20 16:00 115 07/25/20 16:00 101.0 125 24 121/44 (69) 97 07/25/20 15:00 82 20 116/55 (75) 100 07/25/20 14:48 133 26 100 07/25/20 14:11 131 07/25/20 14:00 94 20 112/54 (73) 100 07/25/20 13:25 100 07/25/20 13:00 131 20 120/58 (78) 96 07/25/20 12:00 97.8 126 20 120/55 (76) 100 07/25/20 12:00 Mechanical Ventilator 07/25/20 12:00 126 07/25/20 11:00 127 20 119/52 (74) 100 07/25/20 10:58 124 28 100 07/25/20 10:00 96 20 116/52 (73) 100 07/25/20 09:00 95 19 103/51 (68) 100 07/25/20 08:00 98.2 92 20 118/55 (76) 100 07/25/20 08:00 100 07/25/20 08:00 Mechanical Ventilator 07/25/20 08:00 103 07/25/20 07:47 81 21 100 07/25/20 06:01 94 144/45 07/25/20 06:01 144/56 07/25/20 06:00 87 20 148/50 (82) 100 07/25/20 05:00 96 20 144/46 (78) 100 07/25/20 04:00 99.4 93 16 136/48 (77) 100 07/25/20 04:00 100 07/25/20 04:00 81 07/25/20 03:30 106 25 100 07/25/20 03:00 100 20 149/46 (80) 100 07/25/20 02:30 96 18 136/43 (74) 99 07/25/20 02:25 112 23 128/52 (77) 94 07/25/20 02:20 151 28 141/58 (85) 94 07/25/20 02:15 108 23 156/53 (87) 95 07/25/20 02:10 150 20 147/62 (90) 95 07/25/20 02:05 120 26 138/46 (76) 93 07/25/20 02:00 150 25 137/61 (86) 93 07/25/20 01:55 109 24 136/59 (84) 94 07/25/20 01:50 126 25 151/56 (87) 94 07/25/20 01:45 125 24 136/55 (82) 93 07/25/20 01:40 117 24 140/60 (86) 95 07/25/20 01:35 104 24 135/54 (81) 94 07/25/20 01:30 107 24 143/53 (83) 93 07/25/20 01:25 102 25 154/61 (92) 94 07/25/20 01:20 123 22 148/47 (80) 94 07/25/20 01:15 100 23 142/60 (87) 95 07/25/20 01:10 120 21 152/58 (89) 95 07/25/20 01:05 108 19 155/50 (85) 95 07/25/20 01:00 100 23 174/47 (89) 95 07/25/20 00:30 Mechanical Ventilator 96 07/25/20 00:00 100 07/25/20 00:00 143/45 07/25/20 00:00 81 07/24/20 23:51 80 21 133/42 (72) 93 07/24/20 23:30 86 22 100 07/24/20 22:00 88 21 133/42 (72) 93 07/24/20 21:34 91 147/47 07/24/20 21:00 98 18 132/48 (76) 100 07/24/20 21:00 Mechanical Ventilator 94 Intake and Output 07/24/20 07/25/20 19:00 07:00 Intake Total 860 ml 715 ml Output Total 1 ml Balance 859 ml 715 ml Free Water 200 ml 300 ml IV Total 55 ml Tube Feeding 360 ml 360 ml Other 300 ml Stool Total 1 ml # Bowel Movements 1 Laboratory Tests 07/24/20 21:50: POC Whole Blood Glucose [Pending] 07/25/20 04:05: White Blood Count 14.3H, Red Blood Count 2.26L, Hemoglobin 8.0L, Hematocrit 22.7L, Mean Corpuscular Volume 100H, Mean Corpuscular Hemoglobin 35.6H, Mean Corpuscular Hemoglobin Concent 35.5, Red Cell Distribution Width 15.4H, Platelet Count 109L, Mean Platelet Volume 8.7, Neutrophils (%) (Auto) , Lymphocytes (%) (Auto) , Monocytes (%) (Auto) , Eosinophils (%) (Auto) , Basophils (%) (Auto) , Differential Total Cells Counted 100, Neutrophils % (Manual) 94H, Lymphocytes % (Manual) 2L, Monocytes % (Manual) 4, Eosinophils % (Manual) 0, Basophils % (Manual) 0, Band Neutrophils 0, Platelet Estimate DecreasedL, Platelet Morphology Normal, Anisocytosis 1+, Macrocytosis 1+, Sodium Level 141, Potassium Level 3.4L, Chloride Level 99, Carbon Dioxide Level 38H, Anion Gap 4L, Blood Urea Nitrogen 61H, Creatinine 3.9H, Estimat Glomerular Filtration Rate 11.4, Glucose Level 200H, Calcium Level 8.3L, Phosphorus Level 2.9, Magnesium Level 2.0, Total Bilirubin 1.5H, Direct Bilirubin 1.1H, Aspartate Amino Transf (AST/SGOT) 28, Alanine Aminotransferase (ALT/SGPT) 9L, Alkaline Phosphatase 210H , Troponin I 0.497H, C-Reactive Protein, Quantitative 26.1H, Pro-B-Type Natriuretic Peptide > 03245Z, Total Protein 6.4, Albumin 2.3L, Globulin 4.1, Albumin/Globulin Ratio 0.6L 07/25/20 16:07: Sodium Level 141, Potassium Level 4.1, Chloride Level 99, Carbon Dioxide Level 37H, Anion Gap 5, Blood Urea Nitrogen 82H, Creatinine 4.5H, Estimat Glomerular Filtration Rate 9.6, Glucose Level 89#, Calcium Level 8.7 Height (Feet): 5 Height (Inches): 4.00 Weight (Pounds): 180 Assessment/Plan Problem List: (1) Pneumonia ICD Codes: J18.9 - Pneumonia, unspecified organism SNOMED: 850283420 (2) Hypertension ICD Codes: I10 - Essential (primary) hypertension SNOMED: 28809483 (3) Renal failure ICD Codes: N19 - Unspecified kidney failure SNOMED: 33212038 (4) Anemia in chronic kidney disease (CKD) ICD Codes: N18.9 - Chronic kidney disease, unspecified; D63.1 - Anemia in chronic kidney disease SNOMED: 628847853 (5) weakness (6) ESRD (end stage renal disease) ICD Codes: N18.6 - End stage renal disease SNOMED: 32352714 (7) Diabetic nephropathy with proteinuria ICD Codes: E11.21 - Type 2 diabetes mellitus with diabetic nephropathy SNOMED: 15726055, 691913541 Status: deteriorating Assessment/Plan: intubated no change steroid per pulmonary not improving on full ventilator support copd niddm htn esrd on hd resp failure niddm covid positive pna copd Makenna Daniel MD Jul 25, 2020 20:36
[2020-07-25] MEDS: Dyna-Hex 2% Top Sol 2oz TOPIC SCH (20:51)
[2020-07-25] MEDS: dilTIAZem HCl 30mg tab NG SCH (22:16)
--- NOTE | 2020-07-25 22:29 | NUR ---
NURSE NOTES: 9PM meds given, no distress noted.
--- NOTE | 2020-07-25 23:49 | NUR ---
NURSE NOTES: pts Blood sugar finger stick noted to be 188. insulin given as were protocol.
[2020-07-26] VITALS (26 sets, daily range): BP systolic 89–146; BP diastolic 44–83
--- NOTE | 2020-07-26 02:15 | NUR ---
NURSE NOTES: added new pulse oximeter to pts R hand. pt satting 95% O2.
--- NOTE | 2020-07-26 05:00 | NUR ---
NURSE NOTES: pt started on HD with dialysis nurse Cortez.
[2020-07-26] MEDS: dilTIAZem HCl 30mg tab NG SCH (05:09)
[2020-07-26] MEDS: Piperacillin/Tazobactam 2.25 GM in D5W 55 ML IV SCH ×3 (05:10→21:06)
[2020-07-26] MEDS: NovoLOG Insulin Flexpen SUBQ SCH ×4 (05:32→23:17)
[2020-07-26 06:14] LABS: PHOSPHORUS 3.9 MG/DL (2.5-4.9)
[2020-07-26 06:18] LABS: ALBUMIN/GLOBULIN RATIO 0.5 (1.0-2.7); BILIRUBIN,TOTAL 1.3 MG/DL (0.2-1.0); CALCIUM 8.5 MG/DL (8.5-10.1); POTASSIUM 4.1 MMOL/L (3.5-5.1)
[2020-07-26 06:49] LABS: BILIRUBIN,DIRECT 0.8 MG/DL (0.0-0.3); CREATININE 4.6 MG/DL (0.55-1.30)
--- NOTE | 2020-07-26 06:58 | Hematology/Onc Progress Note ---
Assessment/Plan Assessment/Plan Assessment/Plan 1. Pancytopenia with hx anemia due to underlying chronic disease. Have reviewed prior workup, ferritin is >1000, covid19++++ --> Continue to closely monitor. --> Transfuse if hgb <7 --> ferritin is >1000 --> give epogen, has been started 3x a week --> as per renal --> monitor for gi bleed, gi consulted --> hgb trend 7.8-->9.3->8.9->>11-->9.5->8.9->8 --> plt 42-->50-->65-->104-->109 --> smear has been reviewed --> hep and hiv neg 2. Leukopenia likely reactive process v infection v from meds --> hepatitis and hiv prior negative --> neutropenic precautions if ANC <1500 --> trending stable --> imaging reviewed and no hsm / cirrhosis noted --> wbc 2.7-->3.6->>>2->5-->8 --> ANC goal >1500 3. End-stage renal disease, on hemodialysis three times a week. --> renal consulted --> continue hd 4. History of coronary artery disease. --> cards reviewed --> diuresis prn 5. History of anemia due to low B12, low iron --> b12 is currently within normal limits --> reobtain q6mo 6. Dizziness and unsteady gait 7. Covid 19 --> rx per id 8. DVt ppsx with SCDs Greatly appreciate consultation and Selvin RN Subjective Allergies: Coded Allergies: No Known Allergies (Unverified , 05/12/17) All Systems: reviewed and negative except above Subjective 07/19 meds noted, s/p hd, bp has improved, no bleeding, labs reviewed 07/20 labs are noted, no bleeding, meds reviewed, no major changes, hgb 9.5 07/22 remains in the icu, no bleeding, meds reviewed, on nc 07/23 labs noted, no bleeding, in icu, hgb 8.7, plt 90 07/24 is intubated, hgb 11, no bleeding, plt are better, meds reviewed 07/25 remains on zosyn, labs are noted, no bleeding, icu, meds ntoed, s/p hd yesterday with renal 07/26 seen at bedside with Justo Toro, doing HD today, is in the icu, have ordered epo Objective Objective Current Medications Medications (Trade) Dose Ordered Sig/Toya Route PRN Reason Start Time Stop Time Status Last Admin Dose Admin Acetaminophen (Tylenol) 500 mg Q4HR PRN ORAL For Pain 07/17/20 00:00 08/16/20 00:00 07/24/20 03:39 Acetaminophen (Tylenol) 500 mg Q8H PRN ORAL FHMP 07/16/20 22:45 08/15/20 22:44 07/25/20 18:40 Albuterol Sulfate (Proventil MDI) 2 puff Q4H PRN INH Shortness of Breath 07/16/20 19:00 10/14/20 18:59 Chlorhexidine Gluconate (Yessi-Hex 2%) 1 applic DAILY@2000 TOPIC 07/21/20 20:00 10/19/20 19:59 07/25/20 20:51 Clonidine HCl (Catapres Tab) 0.1 mg Q4H PRN NG bp over 165 syst 07/21/20 12:00 10/14/20 22:44 Dexamethasone Sodium Phosphate (Decadron 10mg/ ml Inj) 6 mg DAILY IV 07/20/20 12:15 07/29/20 09:01 07/25/20 09:40 Dextrose (Dextrose 50%) 25 ml Q30M PRN IV Hypoglycemia 07/22/20 08:00 10/20/20 07:59 Dextrose (Dextrose 50%) 50 ml Q30M PRN IV Hypoglycemia 07/22/20 08:00 10/20/20 07:59 Diltiazem HCl (Cardizem Tab) 30 mg EVERY 8 HOURS NG 07/25/20 22:00 08/16/20 13:59 07/25/20 22:16 Docusate Sodium (Colace) 100 mg THREE TIMES A DAY NG 07/21/20 13:00 08/20/20 12:59 07/25/20 18:39 Haloperidol Lactate (Haldol) 5 mg Q6H PRN IM Agitation 07/17/20 17:30 08/31/20 17:29 07/18/20 21:34 Insulin Aspart (NovoLOG) Q6HR SUBQ 07/22/20 08:15 10/20/20 11:29 07/25/20 23:44 Insulin Detemir (Levemir) 12 units Q12HR SUBQ 07/24/20 09:00 10/20/20 09:59 07/25/20 20:50 Lorazepam (Ativan 2mg/ml 1ml) 1 mg Q4H PRN IV For Anxiety 07/20/20 22:15 07/27/20 22:14 07/23/20 00:44 Pantoprazole (Protonix) 40 mg EVERY 12 HOURS IVP 07/21/20 21:00 08/20/20 20:59 07/25/20 20:51 Piperacillin Sod/ Tazobactam Sod 2.25 gm/Dextrose 55 ml @ 110 mls/hr Q8HR IV 07/24/20 14:00 07/29/20 13:59 07/25/20 22:16 Quetiapine Fumarate (SEROqueL) 50 mg Q12HR ORAL 07/17/20 14:00 08/31/20 13:59 07/25/20 20:51 Last 24 Hour Vital Signs Date Time Temp Pulse Resp B/P (MAP) Pulse Ox O2 Delivery O2 Flow Rate FiO2 07/26/20 06:00 103 29 124/49 (74) 99 07/26/20 05:09 102 111/46 07/26/20 05:00 104 18 111/46 (67) 97 07/26/20 04:00 98.5 112 19 143/60 (87) 96 07/26/20 04:00 100 07/26/20 04:00 95 07/26/20 03:00 92 19 119/56 (77) 100 07/26/20 02:31 103 21 100 07/26/20 02:00 104 30 139/65 (89) 93 07/26/20 01:00 119 23 141/55 (83) 91 07/26/20 00:00 90 07/26/20 00:00 100 07/26/20 00:00 98.3 96 24 123/54 (77) 93 07/25/20 23:00 103 24 137/50 (79) 92 07/25/20 22:32 103 16 100 07/25/20 22:16 100 126/51 07/25/20 22:00 94 19 126/51 (76) 97 07/25/20 21:00 84 18 118/37 (64) 95 07/25/20 20:00 98.5 100 19 129/47 (74) 95 07/25/20 20:00 100 07/25/20 20:00 104 07/25/20 19:30 98.5 07/25/20 19:08 116 18 96 Mechanical Ventilator 100 07/25/20 19:00 105 18 111/46 (67) 97 07/25/20 18:45 116 18 100 07/25/20 18:00 109 19 111/46 (67) 99 07/25/20 17:00 129 25 129/54 (79) 97 07/25/20 16:00 100 07/25/20 16:00 115 07/25/20 16:00 101.0 125 24 121/44 (69) 97 07/25/20 15:00 82 20 116/55 (75) 100 07/25/20 14:48 133 26 100 07/25/20 14:11 131 07/25/20 14:00 94 20 112/54 (73) 100 07/25/20 13:25 100 07/25/20 13:00 131 20 120/58 (78) 96 07/25/20 12:00 97.8 126 20 120/55 (76) 100 07/25/20 12:00 Mechanical Ventilator 07/25/20 12:00 126 07/25/20 11:00 127 20 119/52 (74) 100 07/25/20 10:58 124 28 100 07/25/20 10:00 96 20 116/52 (73) 100 07/25/20 09:00 95 19 103/51 (68) 100 07/25/20 08:00 98.2 92 20 118/55 (76) 100 07/25/20 08:00 100 07/25/20 08:00 Mechanical Ventilator 07/25/20 08:00 103 07/25/20 07:47 81 21 100 07/25/20 06:01 94 144/45 07/25/20 06:01 144/56 07/25/20 06:00 87 20 148/50 (82) 100 07/25/20 05:00 96 20 144/46 (78) 100 07/25/20 04:00 99.4 93 16 136/48 (77) 100 07/25/20 04:00 100 07/25/20 04:00 81 07/25/20 03:30 106 25 100 07/25/20 03:00 100 20 149/46 (80) 100 07/25/20 02:30 96 18 136/43 (74) 99 07/25/20 02:25 112 23 128/52 (77) 94 07/25/20 02:20 151 28 141/58 (85) 94 07/25/20 02:15 108 23 156/53 (87) 95 07/25/20 02:10 150 20 147/62 (90) 95 07/25/20 02:05 120 26 138/46 (76) 93 07/25/20 02:00 150 25 137/61 (86) 93 07/25/20 01:55 109 24 136/59 (84) 94 07/25/20 01:50 126 25 151/56 (87) 94 07/25/20 01:45 125 24 136/55 (82) 93 07/25/20 01:40 117 24 140/60 (86) 95 07/25/20 01:35 104 24 135/54 (81) 94 07/25/20 01:30 107 24 143/53 (83) 93 07/25/20 01:25 102 25 154/61 (92) 94 07/25/20 01:20 123 22 148/47 (80) 94 07/25/20 01:15 100 23 142/60 (87) 95 07/25/20 01:10 120 21 152/58 (89) 95 07/25/20 01:05 108 19 155/50 (85) 95 07/25/20 01:00 100 23 174/47 (89) 95 07/25/20 00:30 Mechanical Ventilator 96 07/25/20 00:00 100 07/25/20 00:00 143/45 07/25/20 00:00 81 07/24/20 23:51 80 21 133/42 (72) 93 07/24/20 23:30 86 22 100 07/24/20 22:00 88 21 133/42 (72) 93 07/24/20 21:34 91 147/47 07/24/20 21:00 98 18 132/48 (76) 100 07/24/20 21:00 Mechanical Ventilator 94 07/24/20 20:00 93 07/24/20 20:00 102.0 95 14 119/44 (69) 98 07/24/20 20:00 100 07/24/20 19:45 101.0 07/24/20 19:30 89 26 100 07/24/20 19:00 106 21 130/45 (73) 93 07/24/20 18:00 97 26 119/42 (67) 96 07/24/20 17:54 133/49 07/24/20 16:00 93 07/24/20 16:00 101.0 07/24/20 16:00 93 19 129/44 (72) 95 07/24/20 16:00 100 07/24/20 15:00 90 19 109/41 (63) 95 07/24/20 14:34 84 16 100 07/24/20 14:02 96 18 135/51 (79) 95 07/24/20 13:37 86 130/50 07/24/20 13:00 88 26 133/47 (75) 95 07/24/20 12:18 130/50 07/24/20 12:09 99.4 86 15 130/50 (76) 97 07/24/20 12:00 88 07/24/20 12:00 100 07/24/20 11:00 83 10 109/43 (65) 100 07/24/20 10:55 82 16 100 07/24/20 10:00 79 17 102/39 (60) 100 07/24/20 09:00 80 16 115/44 (67) 100 07/24/20 08:00 100 07/24/20 08:00 97.3 78 16 107/42 (63) 100 07/24/20 08:00 78 07/24/20 07:15 80 16 100 07/24/20 07:00 80 16 114/39 (64) 100 Intake and Output 07/25/20 07/26/20 19:00 07:00 Intake Total 670 ml 385 ml Balance 670 ml 385 ml Free Water 200 ml IV Total 110 ml 55 ml Tube Feeding 360 ml 330 ml # Bowel Movements 1 Labs Test 07/23/20 08:09 07/23/20 12:08 07/24/20 04:00 07/24/20 21:50 Arterial Blood pH 7.414 (7.350-7.450) 7.342 (7.350-7.450) Arterial Blood Partial Pressure CO2 55.8 mmHg (35.0-45.0) 57.9 mmHg (35.0-45.0) Arterial Blood Partial Pressure O2 46.3 mmHg (75.0-100.0) 55.7 mmHg (75.0-100.0) Arterial Blood HCO3 34.9 mmol/L (22.0-26.0) 30.7 mmol/L (22.0-26.0) Arterial Blood Oxygen Saturation 82.8 % (95-100) 84.4 % (95-100) Arterial Blood Base Excess 9 (-2-2) 4.1 (-2-2) Faheem Test Positive Positive White Blood Count 11.3 K/UL (4.8-10.8) Red Blood Count 2.51 M/UL (4.20-5.40) Hemoglobin 8.7 G/DL (12.0-16.0) Hematocrit 25.6 % (37.0-47.0) Mean Corpuscular Volume 102 FL (80-99) Mean Corpuscular Hemoglobin 34.8 PG (27.0-31.0) Mean Corpuscular Hemoglobin Concent 34.1 G/DL (32.0-36.0) Red Cell Distribution Width 15.4 % (11.6-14.8) Platelet Count 104 K/UL (150-450) Mean Platelet Volume 8.6 FL (6.5-10.1) Neutrophils (%) (Auto) % (45.0-75.0) Lymphocytes (%) (Auto) % (20.0-45.0) Monocytes (%) (Auto) % (1.0-10.0) Eosinophils (%) (Auto) % (0.0-3.0) Basophils (%) (Auto) % (0.0-2.0) Differential Total Cells Counted 100 Neutrophils % (Manual) 96 % (45-75) Lymphocytes % (Manual) 2 % (20-45) Monocytes % (Manual) 2 % (1-10) Eosinophils % (Manual) 0 % (0-3) Basophils % (Manual) 0 % (0-2) Band Neutrophils 0 % (0-8) Platelet Estimate Decreased Platelet Morphology Normal Polychromasia 1+ Hypochromasia 1+ Anisocytosis 1+ Sodium Level 143 MMOL/L (136-145) Potassium Level 4.7 MMOL/L (3.5-5.1) Chloride Level 102 MMOL/L (98-107) Carbon Dioxide Level 33 MMOL/L (21-32) Anion Gap 8 mmol/L (5-15) Blood Urea Nitrogen 106 mg/dL (7-18) Creatinine 6.5 MG/DL (0.55-1.30) Estimat Glomerular Filtration Rate 6.3 mL/min (>60) Glucose Level 285 MG/DL (74-106) Calcium Level 8.8 MG/DL (8.5-10.1) Phosphorus Level 1.9 MG/DL (2.5-4.9) Magnesium Level 2.2 MG/DL (1.8-2.4) Total Bilirubin 1.0 MG/DL (0.2-1.0) Aspartate Amino Transf (AST/SGOT) 26 U/L (15-37) Alanine Aminotransferase (ALT/SGPT) 10 U/L (12-78) Alkaline Phosphatase 189 U/L (46-116) Troponin I 0.622 ng/mL (0.000-0.056) C-Reactive Protein, Quantitative 25.3 mg/dL (0.00-0.90) Pro-B-Type Natriuretic Peptide > 71458 pg/mL (0-125) Total Protein 6.4 G/DL (6.4-8.2) Albumin 2.2 G/DL (3.4-5.0) Globulin 4.2 g/dL Albumin/Globulin Ratio 0.5 (1.0-2.7) Test 07/25/20 04:05 07/25/20 16:07 07/25/20 20:48 07/25/20 23:30 White Blood Count 14.3 K/UL (4.8-10.8) Red Blood Count 2.26 M/UL (4.20-5.40) Hemoglobin 8.0 G/DL (12.0-16.0) Hematocrit 22.7 % (37.0-47.0) Mean Corpuscular Volume 100 FL (80-99) Mean Corpuscular Hemoglobin 35.6 PG (27.0-31.0) Mean Corpuscular Hemoglobin Concent 35.5 G/DL (32.0-36.0) Red Cell Distribution Width 15.4 % (11.6-14.8) Platelet Count 109 K/UL (150-450) Mean Platelet Volume 8.7 FL (6.5-10.1) Neutrophils (%) (Auto) % (45.0-75.0) Lymphocytes (%) (Auto) % (20.0-45.0) Monocytes (%) (Auto) % (1.0-10.0) Eosinophils (%) (Auto) % (0.0-3.0) Basophils (%) (Auto) % (0.0-2.0) Differential Total Cells Counted 100 Neutrophils % (Manual) 94 % (45-75) Lymphocytes % (Manual) 2 % (20-45) Monocytes % (Manual) 4 % (1-10) Eosinophils % (Manual) 0 % (0-3) Basophils % (Manual) 0 % (0-2) Band Neutrophils 0 % (0-8) Platelet Estimate Decreased Platelet Morphology Normal Anisocytosis 1+ Macrocytosis 1+ Sodium Level 141 MMOL/L (136-145) 141 MMOL/L (136-145) Potassium Level 3.4 MMOL/L (3.5-5.1) 4.1 MMOL/L (3.5-5.1) Chloride Level 99 MMOL/L (98-107) 99 MMOL/L (98-107) Carbon Dioxide Level 38 MMOL/L (21-32) 37 MMOL/L (21-32) Anion Gap 4 mmol/L (5-15) 5 mmol/L (5-15) Blood Urea Nitrogen 61 mg/dL (7-18) 82 mg/dL (7-18) Creatinine 3.9 MG/DL (0.55-1.30) 4.5 MG/DL (0.55-1.30) Estimat Glomerular Filtration Rate 11.4 mL/min (>60) 9.6 mL/min (>60) Glucose Level 200 MG/DL (74-106) 89 MG/DL (74-106) Calcium Level 8.3 MG/DL (8.5-10.1) 8.7 MG/DL (8.5-10.1) Phosphorus Level 2.9 MG/DL (2.5-4.9) Magnesium Level 2.0 MG/DL (1.8-2.4) Total Bilirubin 1.5 MG/DL (0.2-1.0) Direct Bilirubin 1.1 MG/DL (0.0-0.3) Aspartate Amino Transf (AST/SGOT) 28 U/L (15-37) Alanine Aminotransferase (ALT/SGPT) 9 U/L (12-78) Alkaline Phosphatase 210 U/L (46-116) Troponin I 0.497 ng/mL (0.000-0.056) C-Reactive Protein, Quantitative 26.1 mg/dL (0.00-0.90) Pro-B-Type Natriuretic Peptide > 11317 pg/mL (0-125) Total Protein 6.4 G/DL (6.4-8.2) Albumin 2.3 G/DL (3.4-5.0) Globulin 4.1 g/dL Albumin/Globulin Ratio 0.6 (1.0-2.7) POC Whole Blood Glucose 188 MG/DL (74-106) Test 07/26/20 04:30 07/26/20 05:25 Sodium Level 141 MMOL/L (136-145) Potassium Level 4.1 MMOL/L (3.5-5.1) Chloride Level 100 MMOL/L (98-107) Carbon Dioxide Level 33 MMOL/L (21-32) Anion Gap 8 mmol/L (5-15) Blood Urea Nitrogen 90 mg/dL (7-18) Creatinine 4.6 MG/DL (0.55-1.30) Estimat Glomerular Filtration Rate 9.4 mL/min (>60) Glucose Level 141 MG/DL (74-106) Calcium Level 8.5 MG/DL (8.5-10.1) Phosphorus Level 3.9 MG/DL (2.5-4.9) Magnesium Level 2.0 MG/DL (1.8-2.4) Total Bilirubin 1.3 MG/DL (0.2-1.0) Direct Bilirubin 0.8 MG/DL (0.0-0.3) Aspartate Amino Transf (AST/SGOT) 34 U/L (15-37) Alanine Aminotransferase (ALT/SGPT) 147 U/L (12-78) Alkaline Phosphatase 198 U/L (46-116) C-Reactive Protein, Quantitative 17.5 mg/dL (0.00-0.90) Pro-B-Type Natriuretic Peptide > 14266 pg/mL (0-125) Total Protein 6.2 G/DL (6.4-8.2) Albumin 2.0 G/DL (3.4-5.0) Globulin 4.2 g/dL Albumin/Globulin Ratio 0.5 (1.0-2.7) Digoxin Level 0.5 NG/ML (0.9-2.0) POC Whole Blood Glucose 121 MG/DL (74-106) Height (Feet): 5 Height (Inches): 4.00 Weight (Pounds): 180 Objective Physical Exam General Appearance: alert, obese, Chronically Ill Neck: full range of motion Respiratory: wheezing Cardiovascular: edema Gastrointestinal: normal inspection, soft 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
--- NOTE | 2020-07-26 07:18 | NUR ---
NURSE HAND-OFF REPORT: Latest Vital Signs: Temperature 98.5 , Pulse 105 , B/P 127 /57 , Respiratory Rate 23 , O2 SAT 99 , Nasal Cannula, O2 Flow Rate 3.0 . Vital Sign Comment: [stable] EKG Rhythm: Sinus Rhythm Rhythm change?: N MD Notified?: Roxanne -Dr. En CROFT Response: Latest Elizabeth Fall Score: 50 Fall Risk: High Risk Safety Measures: Call light Within Reach, Bed Alarm Zone 2, Side Rails Side Rails x2, Bed position Low and Locked. Fall Precautions: Yellow Socks Yellow Gown Door Sign Patient Fall Education Report given to [SATHYA Arzola RN].
--- NOTE | 2020-07-26 07:20 | NUR ---
NURSE NOTES: Patient received lying in bed, opens eyes to touch. Orally intubated, with settings of AC-16, TV-500, FiO2-100%, PEEP -15, no acute respiratory distress, oxygen saturation at 100%. No signs of pain noted. Left upper arm with positive bruit and thrill. Patient just finished on HD with 3L out. Right femoral TLC, intact, saline lock. Patient is anuric. Atrial fibrillation/ Sinus Rhythm on the monitor, rate of 90s- low 100s. Safety measures implemented, bed kept at low position. Will continue to monitor the patient. Safety measures implemented, bed kept at low position. Addendum: 07/26/20 at 1531 by Joselyn Shelton RN Add: Bilateral soft wrist restraints in place for safety, pulses palpable and skin intact. Will monitor the patient.
[2020-07-26 08:09] LABS: HEMATOCRIT 24.9 % (37.0-47.0); HEMOGLOBIN 8.5 G/DL (12.0-16.0); MEAN CORPUSCULAR VOLUME 107 FL (80-99); PLATELET COUNT 136 K/UL (150-450); RED BLOOD COUNT 2.33 M/UL (4.20-5.40); WHITE BLOOD COUNT 16.2 K/UL (4.8-10.8)
[2020-07-26] MEDS: Pantoprazole Inj IVP SCH ×2 (09:21→20:49)
[2020-07-26] MEDS: dexAMETHasone 10mg/ml Inj IV SCH (09:21)
[2020-07-26] MEDS: Docusate 100mg/10ml Liq NG SCH ×3 (09:21→17:59)
[2020-07-26] MEDS: Levemir Flexpen SUBQ SCH ×2 (09:25→20:50)
[2020-07-26] MEDS: LORazepam Inj 2mg/ml 1ml IV PRN (09:26)
--- NOTE | 2020-07-26 09:27 | Diagnostic Imaging Report ---
Indication: Dyspnea Technique: One view of the chest Comparison: 07/24/2020 Findings: Satisfactory positions of endotracheal and orogastric tubes. Extensive and diffuse bilateral infiltrates versus edema are unchanged. The heart remains markedly enlarged. Impression: Unchanged, over 2 days, findings as above.
--- NOTE | 2020-07-26 09:58 | NUR ---
RD ASSESSMENT & RECOMMENDATIONS SEE CARE ACTIVITY FOR COMPLETE ASSESSMENT DAILY ESTIMATED NEEDS: Needs based on ESRD on HD, DM, crtical care 49 adj 25-33 kcals/kg 8538-2264 total kcals 1.2-1.8 g protein/kg 59-88 g total protein Fluid per MD, on HD mL/kg . total fluid mLs NUTRITION DIAGNOSIS: 1) Increased kcal and protein needs R/T renal dysfunction as evidenced by pt w/ESRD on HD. 2) Swallowing difficulty R/T respiratory failure as evidenced by orally intubated, on NGT feeds. 3) Altered nutrition related lab values R/T h/o DM as evidenced by elev BGs (140, 612, 328-> now improved POC glu 75-188). CURRENT TF:Nepro @ 30ml/hr x 24 hrs ENTERAL NUTRITION RECOMMENDATIONS: Nepro @ 35ml/hr x 24 hrs to provide 840ml, 1512kcal, 68g prot, 611ml free water * Increase goal rate to 35ml/hr to better meet est kcal/prot needs * HOB over 30 degrees/ water flush per MD ADDITIONAL RECOMMENDATIONS: 1) Daily calibrated bedscale wt: Wt fluctuating 80kg's-> 60kg's 2) Monitor BGs closely: BGs improved on long acting insulin + NISS Monitor for hypoglycemia, need for insulin adjustment 3) Nephrovite x 1 4) Monitor lytes (K, phos, mag wnl) .
--- NOTE | 2020-07-26 10:18 | NUR ---
RADIOLOGY DEPT., CHEST X-RAY DONE.-P.DYE
--- NOTE | 2020-07-26 10:47 | NUR ---
NURSE NOTES: Dr. Allen in facility, made aware of patient's morning ABG results and current vent settings. Per MD, keep current settings.
--- NOTE | 2020-07-26 10:51 | Nephrology Progress Note ---
Assessment/Plan Problem List: (1) Hypertensive kidney disease (2) ESRD (end stage renal disease) (3) Hyperkalemia (4) Suspected 2019 novel coronavirus infection (5) Acute respiratory failure Assessment 70-year-old female with end-stage renal disease Presented with volume overload and hyperkalemia Suspected COVID-19 virus infection Hypertensive emergency Diabetes mellitus CHF Plan July 26: Patient was dialyzed this morning. Labs reviewed. Remains intubated on ventilator. Full code. Tachycardic. Continue per consultants. Per orders. July 25: Patient was dialyzed yesterday. 2 L ultrafiltrate it. Discussed with sharepoint analyst today. Attempts at weaning is being tried. Patient will be dialyzed again tomorrow. In view of ejection fraction of 40 to 45% and low blood pressure will adjust the blood pressure medication dosages and give 0.25 mg digoxin IV once. Continue to monitor renal parameters. July 24: Due for dialysis today. Labs reviewed. Low phosphorus replaced. Continue pulmonary support and ID management. Medication list reviewed. BP medication adjusted. July 23: Dialyzed yesterday. Labs reviewed. ABG noted. Patient hypoxic. Vent setting adjusted by sharepoint analyst. Continue current care. Dialysis tomorrow. July 22: Patient on ventilator requiring positive end expiratory pressure. Labs reviewed. Blood sugar elevated. Levemir insulin ordered. Dialysis today. Continue per consultants. July 21: Patient now in ICU. Intubated on ventilator. Was dialyzed. Blood pressure well maintained. Has NG tube. Will start medication through NG tube and start feeding. Continue per consultants. Hemodialysis as needed. July 20: Patient seen and examined. Discussed with RN. Remains encephalopathic. Poor ABG results. Patient at high risk at this stage. We will transfer patients to ICU for possible airway support. Patient due for dialysis today. Hyperkalemia probably secondary to acidosis. Will arrange for NG tube insertion and give medication through NG tube. July 19: Mental status appears slightly improved. Was dialyzed 2 days in a row. Blood pressure medication adjusted. Next dialysis tomorrow. Continue per consultants. July 18: Patient encephalopathic, was dialyzed yesterday and had 3 L removed. Will order dialysis again today. Continue per ID. Blood pressure medication adjusted. July 17: Stat hemodialysis ordered. Kayexalate for high potassium. Pulmonary support with oxygen or BiPAP as needed Blood pressure support with proper parameters Per orders Subjective ROS Limited/Unobtainable: Yes Objective Objective Last 24 Hour Vital Signs Date Time Temp Pulse Resp B/P (MAP) Pulse Ox O2 Delivery O2 Flow Rate FiO2 07/26/20 09:56 153 31 117/67 100 07/26/20 09:26 123 25 145/101 97 07/26/20 07:00 105 23 127/57 (80) 99 07/26/20 06:00 103 29 124/49 (74) 99 07/26/20 05:09 102 111/46 07/26/20 05:00 104 18 111/46 (67) 97 07/26/20 04:00 98.5 112 19 143/60 (87) 96 07/26/20 04:00 100 07/26/20 04:00 95 07/26/20 03:00 92 19 119/56 (77) 100 07/26/20 02:31 103 21 100 07/26/20 02:00 104 30 139/65 (89) 93 07/26/20 01:00 119 23 141/55 (83) 91 07/26/20 00:00 90 07/26/20 00:00 100 07/26/20 00:00 98.3 96 24 123/54 (77) 93 07/25/20 23:00 103 24 137/50 (79) 92 07/25/20 22:32 103 16 100 07/25/20 22:16 100 126/51 07/25/20 22:00 94 19 126/51 (76) 97 07/25/20 21:00 84 18 118/37 (64) 95 07/25/20 20:00 98.5 100 19 129/47 (74) 95 07/25/20 20:00 100 07/25/20 20:00 104 07/25/20 19:30 98.5 07/25/20 19:08 116 18 96 Mechanical Ventilator 100 07/25/20 19:00 105 18 111/46 (67) 97 07/25/20 18:45 116 18 100 07/25/20 18:00 109 19 111/46 (67) 99 07/25/20 17:00 129 25 129/54 (79) 97 07/25/20 16:00 100 07/25/20 16:00 115 07/25/20 16:00 101.0 125 24 121/44 (69) 97 07/25/20 15:00 82 20 116/55 (75) 100 07/25/20 14:48 133 26 100 07/25/20 14:11 131 07/25/20 14:00 94 20 112/54 (73) 100 07/25/20 13:25 100 07/25/20 13:00 131 20 120/58 (78) 96 07/25/20 12:00 97.8 126 20 120/55 (76) 100 07/25/20 12:00 Mechanical Ventilator 07/25/20 12:00 126 07/25/20 11:00 127 20 119/52 (74) 100 07/25/20 10:58 124 28 100 Intake and Output 07/25/20 07/26/20 19:00 07:00 Intake Total 670 ml 415 ml Output Total 3000 ml Balance 670 ml -2585 ml Free Water 200 ml IV Total 110 ml 55 ml Tube Feeding 360 ml 360 ml Hemodialysis UF 3000 ml # Bowel Movements 1 Laboratory Tests 07/25/20 16:07: Sodium Level 141, Potassium Level 4.1, Chloride Level 99, Carbon Dioxide Level 37H, Anion Gap 5, Blood Urea Nitrogen 82H, Creatinine 4.5H, Estimat Glomerular Filtration Rate 9.6, Glucose Level 89#, Calcium Level 8.7 07/25/20 20:48: POC Whole Blood Glucose [Pending] 07/25/20 23:30: POC Whole Blood Glucose 188H 07/26/20 04:30: Sodium Level 141, Potassium Level 4.1, Chloride Level 100, Carbon Dioxide Level 33H, Anion Gap 8, Blood Urea Nitrogen 90H, Creatinine 4.6H, Estimat Glomerular Filtration Rate 9.4, Glucose Level 141H, Calcium Level 8.5, White Blood Count 16.2H, Red Blood Count 2.33L, Hemoglobin 8.5L, Hematocrit 24.9L, Mean Corpuscular Volume 107H, Mean Corpuscular Hemoglobin 36.7H, Mean Corpuscular Hemoglobin Concent 34.2, Red Cell Distribution Width 16.0H, Platelet Count 136L, Mean Platelet Volume 8.8, Neutrophils (%) (Auto) , Lymphocytes (%) (Auto) , Monocytes (%) (Auto) , Eosinophils (%) (Auto) , Basophils (%) (Auto) , Differential Total Cells Counted 100, Neutrophils % (Manual) 92H, Lymphocytes % (Manual) 3L, Monocytes % (Manual) 5, Eosinophils % (Manual) 0, Basophils % (Manual) 0, Band Neutrophils 0, Platelet Estimate DecreasedL, Platelet Morphology Normal, Hypochromasia 1+, Anisocytosis 1+, Phosphorus Level 3.9, Magnesium Level 2.0, Total Bilirubin 1.3H, Direct Bilirubin 0.8H, Aspartate Amino Transf (AST/SGOT) 34, Alanine Aminotransferase (ALT/SGPT) 147H, Alkaline Phosphatase 198H, C-Reactive Protein, Quantitative 17.5H, Pro-B-Type Natriuretic Peptide > 00850S, Total Protein 6.2L, Albumin 2.0L, Globulin 4.2, Albumin/Globulin Ratio 0.5L, Digoxin Level 0.5L 07/26/20 05:25: POC Whole Blood Glucose 121H 07/26/20 08:24: Arterial Blood pH 7.326L, Arterial Blood Partial Pressure CO2 61.6*H, Arterial Blood Partial Pressure O2 76.0, Arterial Blood HCO3 31.5H, Arterial Blood Oxygen Saturation 93.4L, Arterial Blood Base Excess 4.5H, Faheem Test Positive Height (Feet): 5 Height (Inches): 4.00 Weight (Pounds): 180 General Appearance: no apparent distress EENT: other - Intubated on ventilator Cardiovascular: tachycardia Respiratory/Chest: decreased breath sounds Abdomen: distended Francis Falk MD Jul 26, 2020 10:51
[2020-07-26] MEDS: Acetaminophen 500mg (ES) tab ORAL PRN (11:41)
--- NOTE | 2020-07-26 11:42 | NUR ---
CASE MANAGEMENT:REVIEW 07/25/20 SI;OTIS PNA. COPD. ESRD RESPIRATORY FAILURE ~ INTUBATED 101.0 133 26 103/51 100% ETT VENT AC 16 TV 500 PEEP 10.0 FIO2 100% WBC 14.3 H/H 8.0/22.7 PLT 109 BUN 61 CR 3.9 T-BILI 1.5 ALP 210 ALB 2.3 IS;ZOSYN IV Q8 PROTONIX IV Q12 CARDIZEM IV DIGOXIN IV ONCE DECADRON IV QS ICU STATUS PATIENT IS FROM HOME
[2020-07-26] MEDS ORDERED: Metoprolol Tartrate 5mg/5ml Inj IVP SCH (12:00)
--- NOTE | 2020-07-26 12:00 | NUR ---
NURSE NOTES: Patient resting in bed, no signs of pain noted. Bilateral wrist restraints in place.
--- NOTE | 2020-07-26 13:20 | General Progress Note ---
Subjective ROS Limited/Unobtainable: Yes Allergies: Coded Allergies: No Known Allergies (Unverified , 05/12/17) Objective Last 24 Hour Vital Signs Date Time Temp Pulse Resp B/P (MAP) Pulse Ox O2 Delivery O2 Flow Rate FiO2 07/26/20 13:00 118 24 124/45 (71) 100 07/26/20 12:30 116 26 121/44 (69) 100 07/26/20 12:17 101.0 07/26/20 12:00 101.7 129 25 110/46 (67) 100 07/26/20 12:00 100 07/26/20 12:00 117 07/26/20 11:57 150 140/59 07/26/20 11:30 143 138/59 07/26/20 11:00 137 23 130/83 (99) 100 07/26/20 10:00 105 17 89/48 (62) 100 07/26/20 09:56 153 31 117/67 100 07/26/20 09:26 123 25 145/101 97 07/26/20 09:00 130 24 143/75 (97) 97 07/26/20 08:30 115 21 139/65 (89) 98 07/26/20 08:00 93 07/26/20 08:00 99.2 109 21 142/83 (102) 99 07/26/20 08:00 100 07/26/20 07:00 105 23 127/57 (80) 99 07/26/20 06:00 103 29 124/49 (74) 99 07/26/20 05:09 102 111/46 07/26/20 05:00 104 18 111/46 (67) 97 07/26/20 04:00 98.5 112 19 143/60 (87) 96 07/26/20 04:00 100 07/26/20 04:00 95 07/26/20 03:00 92 19 119/56 (77) 100 07/26/20 02:31 103 21 100 07/26/20 02:00 104 30 139/65 (89) 93 07/26/20 01:00 119 23 141/55 (83) 91 07/26/20 00:00 90 07/26/20 00:00 100 07/26/20 00:00 98.3 96 24 123/54 (77) 93 07/25/20 23:00 103 24 137/50 (79) 92 07/25/20 22:32 103 16 100 07/25/20 22:16 100 126/51 07/25/20 22:00 94 19 126/51 (76) 97 07/25/20 21:00 84 18 118/37 (64) 95 07/25/20 20:00 98.5 100 19 129/47 (74) 95 07/25/20 20:00 100 07/25/20 20:00 104 07/25/20 19:30 98.5 07/25/20 19:08 116 18 96 Mechanical Ventilator 100 07/25/20 19:00 105 18 111/46 (67) 97 07/25/20 18:45 116 18 100 07/25/20 18:00 109 19 111/46 (67) 99 07/25/20 17:00 129 25 129/54 (79) 97 07/25/20 16:00 100 07/25/20 16:00 115 07/25/20 16:00 101.0 125 24 121/44 (69) 97 07/25/20 15:00 82 20 116/55 (75) 100 07/25/20 14:48 133 26 100 07/25/20 14:11 131 07/25/20 14:00 94 20 112/54 (73) 100 07/25/20 13:25 100 Intake and Output 07/25/20 07/26/20 19:00 07:00 Intake Total 670 ml 415 ml Output Total 3000 ml Balance 670 ml -2585 ml Free Water 200 ml IV Total 110 ml 55 ml Tube Feeding 360 ml 360 ml Hemodialysis UF 3000 ml # Bowel Movements 1 Laboratory Tests 07/25/20 16:07: Sodium Level 141, Potassium Level 4.1, Chloride Level 99, Carbon Dioxide Level 37H, Anion Gap 5, Blood Urea Nitrogen 82H, Creatinine 4.5H, Estimat Glomerular Filtration Rate 9.6, Glucose Level 89#, Calcium Level 8.7 07/25/20 20:48: POC Whole Blood Glucose [Pending] 07/25/20 23:30: POC Whole Blood Glucose 188H 07/26/20 04:30: Sodium Level 141, Potassium Level 4.1, Chloride Level 100, Carbon Dioxide Level 33H, Anion Gap 8, Blood Urea Nitrogen 90H, Creatinine 4.6H, Estimat Glomerular Filtration Rate 9.4, Glucose Level 141H, Calcium Level 8.5, White Blood Count 16.2H, Red Blood Count 2.33L, Hemoglobin 8.5L, Hematocrit 24.9L, Mean Corpuscular Volume 107H, Mean Corpuscular Hemoglobin 36.7H, Mean Corpuscular H emoglobin Concent 34.2, Red Cell Distribution Width 16.0H, Platelet Count 136L, Mean Platelet Volume 8.8, Neutrophils (%) (Auto) , Lymphocytes (%) (Auto) , Monocytes (%) (Auto) , Eosinophils (%) (Auto) , Basophils (%) (Auto) , Differential Total Cells Counted 100, Neutrophils % (Manual) 92H, Lymphocytes % (Manual) 3L, Monocytes % (Manual) 5, Eosinophils % (Manual) 0, Basophils % (Manual) 0, Band Neutrophils 0, Platelet Estimate DecreasedL, Platelet Morphology Normal, Hypochromasia 1+, Anisocytosis 1+, Phosphorus Level 3.9, Magnesium Level 2.0, Total Bilirubin 1.3H, Direct Bilirubin 0.8H, Aspartate Amino Transf (AST/SGOT) 34, Alanine Aminotransferase (ALT/SGPT) 147H, Alkaline Phosphatase 198H, C-Reactive Protein, Quantitative 17.5H, Pro-B-Type Natriuretic Peptide > 15207K, Total Protein 6.2L, Albumin 2.0L, Globulin 4.2, Albumin/Globulin Ratio 0.5L, Digoxin Level 0.5L 07/26/20 05:25: POC Whole Blood Glucose 121H 07/26/20 08:24: Arterial Blood pH 7.326L, Arterial Blood Partial Pressure CO2 61.6*H, Arterial Blood Partial Pressure O2 76.0, Arterial Blood HCO3 31.5H, Arterial Blood Oxygen Saturation 93.4L, Arterial Blood Base Excess 4.5H, Faheem Test Positive Height (Feet): 5 Height (Inches): 4.00 Weight (Pounds): 180 Assessment/Plan Problem List: (1) Pneumonia ICD Codes: J18.9 - Pneumonia, unspecified organism SNOMED: 317129351 (2) Hypertension ICD Codes: I10 - Essential (primary) hypertension SNOMED: 05169275 (3) Renal failure ICD Codes: N19 - Unspecified kidney failure SNOMED: 92699126 (4) Anemia in chronic kidney disease (CKD) ICD Codes: N18.9 - Chronic kidney disease, unspecified; D63.1 - Anemia in chronic kidney disease SNOMED: 660316764 (5) weakness (6) ESRD (end stage renal disease) ICD Codes: N18.6 - End stage renal disease SNOMED: 05190062 (7) Diabetic nephropathy with proteinuria ICD Codes: E11.21 - Type 2 diabetes mellitus with diabetic nephropathy SNOMED: 29776924, 168351718 Status: deteriorating Assessment/Plan: cant wean from ventilator poor prognosis malnutrition copd niddm htn esrd on hd resp failure niddm covid positive pna Makenna Daniel MD Jul 26, 2020 13:20
--- NOTE | 2020-07-26 13:27 | Cardiac Electrophysiology PN ---
Assessment/Plan Assessment/Plan 1. Accelerated HTN. Change Cardizem to lopressor 25 q 6hr and p.r.n.clonidine. EF 40- 45% 2. Atrial fib with RVR with HR up to 150s. Change Coreg and Cardizem to Lopressor 25 q 6 hr and give Lopressor 10 mg ivp 3. End-stage renal disease, now on hemodialysis. 4. Hyponatremia, sodium 129. Fluid restriction per Dr. Falk. 5. Volume overload, BNP of more than 35,000 and EF 40-45%. On HD 6. Covid PNA and resp failure on the Vent with 100% Fio2 and PEEP 15 Covid positive 07/11 and 07/[address] Ferreira Subjective Subjective Confused in restraints. In Covid isolation. Intubated on 100% Fio2 and PEEP 15. Had HD 3 liter today. Developed atrial fib with RVR 140s Objective Last 24 Hour Vital Signs Date Time Temp Pulse Resp B/P (MAP) Pulse Ox O2 Delivery O2 Flow Rate FiO2 07/26/20 13:00 118 24 124/45 (71) 100 07/26/20 12:30 116 26 121/44 (69) 100 07/26/20 12:17 101.0 07/26/20 12:00 101.7 129 25 110/46 (67) 100 07/26/20 12:00 100 07/26/20 12:00 117 07/26/20 11:57 150 140/59 07/26/20 11:30 143 138/59 07/26/20 11:00 137 23 130/83 (99) 100 07/26/20 10:00 105 17 89/48 (62) 100 07/26/20 09:56 153 31 117/67 100 07/26/20 09:26 123 25 145/101 97 07/26/20 09:00 130 24 143/75 (97) 97 07/26/20 08:30 115 21 139/65 (89) 98 07/26/20 08:00 93 07/26/20 08:00 99.2 109 21 142/83 (102) 99 07/26/20 08:00 100 07/26/20 07:00 105 23 127/57 (80) 99 07/26/20 06:00 103 29 124/49 (74) 99 07/26/20 05:09 102 111/46 07/26/20 05:00 104 18 111/46 (67) 97 07/26/20 04:00 98.5 112 19 143/60 (87) 96 07/26/20 04:00 100 07/26/20 04:00 95 07/26/20 03:00 92 19 119/56 (77) 100 07/26/20 02:31 103 21 100 07/26/20 02:00 104 30 139/65 (89) 93 07/26/20 01:00 119 23 141/55 (83) 91 07/26/20 00:00 90 07/26/20 00:00 100 07/26/20 00:00 98.3 96 24 123/54 (77) 93 07/25/20 23:00 103 24 137/50 (79) 92 07/25/20 22:32 103 16 100 07/25/20 22:16 100 126/51 07/25/20 22:00 94 19 126/51 (76) 97 07/25/20 21:00 84 18 118/37 (64) 95 07/25/20 20:00 98.5 100 19 129/47 (74) 95 07/25/20 20:00 100 07/25/20 20:00 104 07/25/20 19:30 98.5 07/25/20 19:08 116 18 96 Mechanical Ventilator 100 07/25/20 19:00 105 18 111/46 (67) 97 07/25/20 18:45 116 18 100 07/25/20 18:00 109 19 111/46 (67) 99 07/25/20 17:00 129 25 129/54 (79) 97 07/25/20 16:00 100 07/25/20 16:00 115 07/25/20 16:00 101.0 125 24 121/44 (69) 97 07/25/20 15:00 82 20 116/55 (75) 100 07/25/20 14:48 133 26 100 07/25/20 14:11 131 07/25/20 14:00 94 20 112/54 (73) 100 07/25/20 13:25 100 Intake and Output 07/25/20 07/26/20 19:00 07:00 Intake Total 670 ml 415 ml Output Total 3000 ml Balance 670 ml -2585 ml Free Water 200 ml IV Total 110 ml 55 ml Tube Feeding 360 ml 360 ml Hemodialysis UF 3000 ml # Bowel Movements 1 Laboratory Tests Test 07/25/20 16:07 07/25/20 20:48 07/25/20 23:30 07/26/20 04:30 Sodium Level 141 MMOL/L (136-145) 141 MMOL/L (136-145) Potassium Level 4.1 MMOL/L (3.5-5.1) 4.1 MMOL/L (3.5-5.1) Chloride Level 99 MMOL/L (98-107) 100 MMOL/L (98-107) Carbon Dioxide Level 37 MMOL/L (21-32) H 33 MMOL/L (21-32) H Anion Gap 5 mmol/L (5-15) 8 mmol/L (5-15) Blood Urea Nitrogen 82 mg/dL (7-18) H 90 mg/dL (7-18) H Creatinine 4.5 MG/DL (0.55-1.30) H 4.6 MG/DL (0.55-1.30) H Estimat Glomerular Filtration Rate 9.6 mL/min (>60) 9.4 mL/min (>60) Glucose Level 89 MG/DL (74-106) # 141 MG/DL (74-106) H Calcium Level 8.7 MG/DL (8.5-10.1) 8.5 MG/DL (8.5-10.1) POC Whole Blood Glucose Pending 188 MG/DL (74-106) H White Blood Count 16.2 K/UL (4.8-10.8) H Red Blood Count 2.33 M/UL (4.20-5.40) L Hemoglobin 8.5 G/DL (12.0-16.0) L Hematocrit 24.9 % (37.0-47.0) L Mean Corpuscular Volume 107 FL (80-99) H Mean Corpuscular Hemoglobin 36.7 PG (27.0-31.0) H Mean Corpuscular Hemoglobin Concent 34.2 G/DL (32.0-36.0) Red Cell Distribution Width 16.0 % (11.6-14.8) H Platelet Count 136 K/UL (150-450) L Mean Platelet Volume 8.8 FL (6.5-10.1) Neutrophils (%) (Auto) % (45.0-75.0) Lymphocytes (%) (Auto) % (20.0-45.0) Monocytes (%) (Auto) % (1.0-10.0) Eosinophils (%) (Auto) % (0.0-3.0) Basophils (%) (Auto) % (0.0-2.0) Differential Total Cells Counted 100 Neutrophils % (Manual) 92 % (45-75) H Lymphocytes % (Manual) 3 % (20-45) L Monocytes % (Manual) 5 % (1-10) Eosinophils % (Manual) 0 % (0-3) Basophils % (Manual) 0 % (0-2) Band Neutrophils 0 % (0-8) Platelet Estimate Decreased L Platelet Morphology Normal Hypochromasia 1+ Anisocytosis 1+ Phosphorus Level 3.9 MG/DL (2.5-4.9) Magnesium Level 2.0 MG/DL (1.8-2.4) Total Bilirubin 1.3 MG/DL (0.2-1.0) H Direct Bilirubin 0.8 MG/DL (0.0-0.3) H Aspartate Amino Transf (AST/SGOT) 34 U/L (15-37) Alanine Aminotransferase (ALT/SGPT) 147 U/L (12-78) H Alkaline Phosphatase 198 U/L (46-116) H C-Reactive Protein, Quantitative 17.5 mg/dL (0.00-0.90) H Pro-B-Type Natriuretic Peptide > 44874 pg/mL (0-125) H Total Protein 6.2 G/DL (6.4-8.2) L Albumin 2.0 G/DL (3.4-5.0) L Globulin 4.2 g/dL Albumin/Globulin Ratio 0.5 (1.0-2.7) L Digoxin Level 0.5 NG/ML (0.9-2.0) L Test 07/26/20 05:25 07/26/20 08:24 POC Whole Blood Glucose 121 MG/DL (74-106) H Arterial Blood pH 7.326 (7.350-7.450) Arterial Blood Partial Pressure CO2 61.6 mmHg (35.0-45.0) *H Arterial Blood Partial Pressure O2 76.0 mmHg (75.0-100.0) Arterial Blood HCO3 31.5 mmol/L (22.0-26.0) H Arterial Blood Oxygen Saturation 93.4 % (95-100) L Arterial Blood Base Excess 4.5 (-2-2) H Faheem Test Positive Objective HEAD AND NECK: .Orally intubated LUNGS: Coarse rhonchi. CARDIOVASCULAR: Regular S1 and S2 with no gallop or murmur. ABDOMEN: Soft. EXTREMITIES: No pitting edema. Zev Gatica MD Jul 26, 2020 13:27
--- NOTE | 2020-07-26 14:16 | Pulmonology Progress Note ---
Subjective ROS Limited/Unobtainable: Yes Interval Events: seen in ICU; remains intubated Constitutional: Reports: fever, other - Vb=300 HEENT: Repors: no symptoms Respiratory: Reports: no symptoms Cardiovascular: Reports: no symptoms Gastrointestinal/Abdominal: Reports: no symptoms Genitourinary: Reports: no symptoms Allergies: Coded Allergies: No Known Allergies (Unverified , 05/12/17) All Systems: reviewed and negative except above Objective Last 24 Hour Vital Signs Date Time Temp Pulse Resp B/P (MAP) Pulse Ox O2 Delivery O2 Flow Rate FiO2 07/26/20 14:00 108 26 123/66 (85) 99 07/26/20 13:00 118 24 124/45 (71) 100 07/26/20 12:30 116 26 121/44 (69) 100 07/26/20 12:17 101.0 07/26/20 12:00 101.7 129 25 110/46 (67) 100 07/26/20 12:00 100 07/26/20 12:00 117 07/26/20 11:57 150 140/59 07/26/20 11:30 143 138/59 07/26/20 11:00 137 23 130/83 (99) 100 07/26/20 10:00 105 17 89/48 (62) 100 07/26/20 09:56 153 31 117/67 100 07/26/20 09:26 123 25 145/101 97 07/26/20 09:00 130 24 143/75 (97) 97 07/26/20 08:30 115 21 139/65 (89) 98 07/26/20 08:00 93 07/26/20 08:00 99.2 109 21 142/83 (102) 99 07/26/20 08:00 100 07/26/20 07:00 105 23 127/57 (80) 99 07/26/20 06:00 103 29 124/49 (74) 99 07/26/20 05:09 102 111/46 07/26/20 05:00 104 18 111/46 (67) 97 07/26/20 04:00 98.5 112 19 143/60 (87) 96 07/26/20 04:00 100 07/26/20 04:00 95 07/26/20 03:00 92 19 119/56 (77) 100 07/26/20 02:31 103 21 100 07/26/20 02:00 104 30 139/65 (89) 93 07/26/20 01:00 119 23 141/55 (83) 91 07/26/20 00:00 90 07/26/20 00:00 100 07/26/20 00:00 98.3 96 24 123/54 (77) 93 07/25/20 23:00 103 24 137/50 (79) 92 07/25/20 22:32 103 16 100 07/25/20 22:16 100 126/51 07/25/20 22:00 94 19 126/51 (76) 97 07/25/20 21:00 84 18 118/37 (64) 95 07/25/20 20:00 98.5 100 19 129/47 (74) 95 07/25/20 20:00 100 07/25/20 20:00 104 07/25/20 19:30 98.5 07/25/20 19:08 116 18 96 Mechanical Ventilator 100 07/25/20 19:00 105 18 111/46 (67) 97 07/25/20 18:45 116 18 100 07/25/20 18:00 109 19 111/46 (67) 99 07/25/20 17:00 129 25 129/54 (79) 97 07/25/20 16:00 100 07/25/20 16:00 115 07/25/20 16:00 101.0 125 24 121/44 (69) 97 07/25/20 15:00 82 20 116/55 (75) 100 07/25/20 14:48 133 26 100 Intake and Output 07/25/20 07/26/20 19:00 07:00 Intake Total 670 ml 415 ml Output Total 3000 ml Balance 670 ml -2585 ml Free Water 200 ml IV Total 110 ml 55 ml Tube Feeding 360 ml 360 ml Hemodialysis UF 3000 ml # Bowel Movements 1 General Appearance: WD/WN, no acute distress, other - intubation HEENT: normocephalic Respiratory: chest wall non-tender, crackles/rales Cardiovascular: normal rate, regular rhythm Laboratory Tests 07/25/20 16:07: Sodium Level 141, Potassium Level 4.1, Chloride Level 99, Carbon Dioxide Level 37H, Anion Gap 5, Blood Urea Nitrogen 82H, Creatinine 4.5H, Estimat Glomerular Filtration Rate 9.6, Glucose Level 89#, Calcium Level 8.7 07/25/20 20:48: POC Whole Blood Glucose [Pending] 07/25/20 23:30: POC Whole Blood Glucose 188H 07/26/20 04:30: Sodium Level 141, Potassium Level 4.1, Chloride Level 100, Carbon Dioxide Level 33H, Anion Gap 8, Blood Urea Nitrogen 90H, Creatinine 4.6H, Estimat Glomerular Filtration Rate 9.4, Glucose Level 141H, Calcium Level 8.5, White Blood Count 16.2H, Red Blood Count 2.33L, Hemoglobin 8.5L, Hematocrit 24.9L, Mean Corpuscular Volume 107H, Mean Corpuscular Hemoglobin 36.7H, Mean Corpuscular Hemoglobin Concent 34.2, Red Cell Distribution Width 16.0H, Platelet Count 136L, Mean Platelet Volume 8.8, Neutrophils (%) (Auto) , Lymphocytes (%) (Auto) , Monocytes (%) (Auto) , Eosinophils (%) (Auto) , Basophils (%) (Auto) , Differential Total Cells Counted 100, Neutrophils % (Manual) 92H, Lymphocytes % (Manual) 3L, Monocytes % (Manual) 5, Eosinophils % (Manual) 0, Basophils % (Manual) 0, Band Neutrophils 0, Platelet Estimate DecreasedL, Platelet Morphology Normal, Hypochromasia 1+, Anisocytosis 1+, Phosphorus Level 3.9, Magnesium Level 2.0, Total Bilirubin 1.3H, Direct Bilirubin 0.8H, Aspartate Amino Transf (AST/SGOT) 34, Alanine Aminotransferase (ALT/SGPT) 147H, Alkaline Phosphatase 198H, C-Reactive Protein, Quantitative 17.5H, Pro-B-Type Natriuretic Peptide > 25862P, Total Protein 6.2L, Albumin 2.0L, Globulin 4.2, Albumin/Globulin Ratio 0.5L, Digoxin Level 0.5L 07/26/20 05:25: POC Whole Blood Glucose 121H 07/26/20 08:24: Arterial Blood pH 7.326L, Arterial Blood Partial Pressure CO2 61.6*H, Arterial Blood Partial Pressure O2 76.0, Arterial Blood HCO3 31.5H, Arterial Blood Oxygen Saturation 93.4L, Arterial Blood Base Excess 4.5H, Faheem Test Positive Current Medications Medications (Trade) Dose Ordered Sig/Toya Route PRN Reason Start Time Stop Time Status Last Admin Dose Admin Acetaminophen (Tylenol) 500 mg Q4HR PRN ORAL For Pain 07/17/20 00:00 08/16/20 00:00 07/24/20 03:39 Acetaminophen (Tylenol) 500 mg Q8H PRN ORAL FHMP 07/16/20 22:45 08/15/20 22:44 07/26/20 11:41 Albuterol Sulfate (Proventil MDI) 2 puff Q4H PRN INH Shortness of Breath 07/16/20 19:00 10/14/20 18:59 Chlorhexidine Gluconate (Yessi-Hex 2%) 1 applic DAILY@2000 TOPIC 07/21/20 20:00 10/19/20 19:59 07/25/20 20:51 Clonidine HCl (Catapres Tab) 0.1 mg Q4H PRN NG bp over 165 syst 07/21/20 12:00 10/14/20 22:44 Dexamethasone Sodium Phosphate (Decadron 10mg/ ml Inj) 6 mg DAILY IV 07/20/20 12:15 07/29/20 09:01 07/26/20 09:21 Dextrose (Dextrose 50%) 25 ml Q30M PRN IV Hypoglycemia 07/22/20 08:00 10/20/20 07:59 Dextrose (Dextrose 50%) 50 ml Q30M PRN IV Hypoglycemia 07/22/20 08:00 10/20/20 07:59 Docusate Sodium (Colace) 100 mg THREE TIMES A DAY NG 07/21/20 13:00 08/20/20 12:59 07/26/20 09:21 Epoetin Panchito (Epoetin Panchito(ESRD on dialysis)) 4,000 unit THU-THU-THU SUBQ 07/27/20 21:00 10/25/20 20:59 Haloperidol Lactate (Haldol) 5 mg Q6H PRN IM Agitation 07/17/20 17:30 08/31/20 17:29 07/18/20 21:34 Insulin Aspart (NovoLOG) Q6HR SUBQ 07/22/20 08:15 10/20/20 11:29 07/25/20 23:44 Insulin Detemir (Levemir) 12 units Q12HR SUBQ 07/24/20 09:00 10/20/20 09:59 07/26/20 09:25 Lorazepam (Ativan 2mg/ml 1ml) 1 mg Q4H PRN IV For Anxiety 07/20/20 22:15 07/27/20 22:14 07/26/20 09:26 Metoprolol Tartrate (Lopressor) 5 mg ONCE IVP 07/26/20 12:00 07/26/20 14:30 07/26/20 11:57 Metoprolol Tartrate (Lopressor) 25 mg EVERY 6 HOURS NG 07/26/20 12:00 10/24/20 11:59 07/26/20 11:30 Pantoprazole (Protonix) 40 mg EVERY 12 HOURS IVP 07/21/20 21:00 08/20/20 20:59 07/26/20 09:21 Piperacillin Sod/ Tazobactam Sod 2.25 gm/Dextrose 55 ml @ 110 mls/hr Q8HR IV 07/24/20 14:00 07/29/20 13:59 07/26/20 13:13 Quetiapine Fumarate (SEROqueL) 50 mg Q12HR ORAL 07/17/20 14:00 08/31/20 13:59 07/26/20 09:21 Assessment/Plan Assessment/Plan Assessment/Plan 1. COVID-19 pneumonia. 2. COPD exacerbation. 3. Pneumonia - CXR shows b/l opacities - she received decadron once which has now been discontinued 4. Hypertensive emergency. - Blood pressure controlled. 5. Leukocytosis.; improving 6. Anemia. 7. Hyponatremia.; resolved 8. Hyperkalemia.; resolved 9. Hypochloridemia.; resolved 10. Hyperglycemia. 11. ESRD, on dialysis. 12. Respiratory failure; now intubated PLAN Continue O2; currently 100% Vent; AC mode On PEEP now 10 S/p HD Will check ABG and CXR in AM Rate 16 Steroids Defer Remdesivir choice to ID; renal failure precludes use Levy Allen,Levy Jenkins MD Jul 26, 2020 14:16
--- NOTE | 2020-07-26 14:46 | Infectious Diseases Prog Note ---
Assessment/Plan Assessment/Plan IMPRESSION: COVID-19 disease, Altered mental status and encephalopathy, End-stage renal disease on hemodialysis, COPD, Asthma, Hypertension, Pancytopenia, Diabetes mellitus with hyperglycemia, Systolic heart failure, Aortic stenosis. Hypercapnic, hypoxemic respiratory failure RECOMMENDATION: Continue dexamethasone Continue Zosyn We will follow up the cultures. Subjective ROS Limited/Unobtainable: Yes Constitutional: Reports: fever, other - Nj=[id number] Neurologic: Reports: confusion, other - on restraint Allergies: Coded Allergies: No Known Allergies (Unverified , 05/12/17) Objective Last 24 Hour Vital Signs Date Time Temp Pulse Resp B/P (MAP) Pulse Ox O2 Delivery O2 Flow Rate FiO2 07/26/20 14:00 108 26 123/66 (85) 99 07/26/20 13:00 118 24 124/45 (71) 100 07/26/20 12:30 116 26 121/44 (69) 100 07/26/20 12:17 101.0 07/26/20 12:00 101.7 129 25 110/46 (67) 100 07/26/20 12:00 100 07/26/20 12:00 117 07/26/20 11:57 150 140/59 07/26/20 11:30 143 138/59 07/26/20 11:00 137 23 130/83 (99) 100 07/26/20 10:00 105 17 89/48 (62) 100 07/26/20 09:56 153 31 117/67 100 07/26/20 09:26 123 25 145/101 97 07/26/20 09:00 130 24 143/75 (97) 97 07/26/20 08:30 115 21 139/65 (89) 98 07/26/20 08:00 93 07/26/20 08:00 99.2 109 21 142/83 (102) 99 07/26/20 08:00 100 07/26/20 07:00 105 23 127/57 (80) 99 07/26/20 06:00 103 29 124/49 (74) 99 07/26/20 05:09 102 111/46 07/26/20 05:00 104 18 111/46 (67) 97 07/26/20 04:00 98.5 112 19 143/60 (87) 96 07/26/20 04:00 100 07/26/20 04:00 95 07/26/20 03:00 92 19 119/56 (77) 100 07/26/20 02:31 103 21 100 07/26/20 02:00 104 30 139/65 (89) 93 07/26/20 01:00 119 23 141/55 (83) 91 07/26/20 00:00 90 07/26/20 00:00 100 07/26/20 00:00 98.3 96 24 123/54 (77) 93 07/25/20 23:00 103 24 137/50 (79) 92 07/25/20 22:32 103 16 100 07/25/20 22:16 100 126/51 07/25/20 22:00 94 19 126/51 (76) 97 07/25/20 21:00 84 18 118/37 (64) 95 07/25/20 20:00 98.5 100 19 129/47 (74) 95 07/25/20 20:00 100 07/25/20 20:00 104 07/25/20 19:30 98.5 07/25/20 19:08 116 18 96 Mechanical Ventilator 100 07/25/20 19:00 105 18 111/46 (67) 97 07/25/20 18:45 116 18 100 07/25/20 18:00 109 19 111/46 (67) 99 07/25/20 17:00 129 25 129/54 (79) 97 07/25/20 16:00 100 07/25/20 16:00 115 07/25/20 16:00 101.0 125 24 121/44 (69) 97 07/25/20 15:00 82 20 116/55 (75) 100 07/25/20 14:48 133 26 100 Height (Feet): 5 Height (Inches): 4.00 Weight (Pounds): 180 HEENT: mucous membranes moist, other - orally intubated Respiratory/Chest: other - on ventilator Cardiovascular: tachycardia Abdomen: soft, non tender Extremities: no edema Neurologic/Psychiatric: unresponsiveness Laboratory Tests Test 07/25/20 16:07 07/25/20 20:48 07/25/20 23:30 07/26/20 04:30 Sodium Level 141 MMOL/L (136-145) 141 MMOL/L (136-145) Potassium Level 4.1 MMOL/L (3.5-5.1) 4.1 MMOL/L (3.5-5.1) Chloride Level 99 MMOL/L (98-107) 100 MMOL/L (98-107) Carbon Dioxide Level 37 MMOL/L (21-32) H 33 MMOL/L (21-32) H Anion Gap 5 mmol/L (5-15) 8 mmol/L (5-15) Blood Urea Nitrogen 82 mg/dL (7-18) H 90 mg/dL (7-18) H Creatinine 4.5 MG/DL (0.55-1.30) H 4.6 MG/DL (0.55-1.30) H Estimat Glomerular Filtration Rate 9.6 mL/min (>60) 9.4 mL/min (>60) Glucose Level 89 MG/DL (74-106) # 141 MG/DL (74-106) H Calcium Level 8.7 MG/DL (8.5-10.1) 8.5 MG/DL (8.5-10.1) POC Whole Blood Glucose Pending 188 MG/DL (74-106) H White Blood Count 16.2 K/UL (4.8-10.8) H Red Blood Count 2.33 M/UL (4.20-5.40) L Hemoglobin 8.5 G/DL (12.0-16.0) L Hematocrit 24.9 % (37.0-47.0) L Mean Corpuscular Volume 107 FL (80-99) H Mean Corpuscular Hemoglobin 36.7 PG (27.0-31.0) H Mean Corpuscular Hemoglobin Concent 34.2 G/DL (32.0-36.0) Red Cell Distribution Width 16.0 % (11.6-14.8) H Platelet Count 136 K/UL (150-450) L Mean Platelet Volume 8.8 FL (6.5-10.1) Neutrophils (%) (Auto) % (45.0-75.0) Lymphocytes (%) (Auto) % (20.0-45.0) Monocytes (%) (Auto) % (1.0-10.0) Eosinophils (%) (Auto) % (0.0-3.0) Basophils (%) (Auto) % (0.0-2.0) Differential Total Cells Counted 100 Neutrophils % (Manual) 92 % (45-75) H Lymphocytes % (Manual) 3 % (20-45) L Monocytes % (Manual) 5 % (1-10) Eosinophils % (Manual) 0 % (0-3) Basophils % (Manual) 0 % (0-2) Band Neutrophils 0 % (0-8) Platelet Estimate Decreased L Platelet Morphology Normal Hypochromasia 1+ Anisocytosis 1+ Phosphorus Level 3.9 MG/DL (2.5-4.9) Magnesium Level 2.0 MG/DL (1.8-2.4) Total Bilirubin 1.3 MG/DL (0.2-1.0) H Direct Bilirubin 0.8 MG/DL (0.0-0.3) H Aspartate Amino Transf (AST/SGOT) 34 U/L (15-37) Alanine Aminotransferase (ALT/SGPT) 147 U/L (12-78) H Alkaline Phosphatase 198 U/L (46-116) H C-Reactive Protein, Quantitative 17.5 mg/dL (0.00-0.90) H Pro-B-Type Natriuretic Peptide > 04062 pg/mL (0-125) H Total Protein 6.2 G/DL (6.4-8.2) L Albumin 2.0 G/DL (3.4-5.0) L Globulin 4.2 g/dL Albumin/Globulin Ratio 0.5 (1.0-2.7) L Digoxin Level 0.5 NG/ML (0.9-2.0) L Test 07/26/20 05:25 07/26/20 08:24 POC Whole Blood Glucose 121 MG/DL (74-106) H Arterial Blood pH 7.326 (7.350-7.450) Arterial Blood Partial Pressure CO2 61.6 mmHg (35.0-45.0) *H Arterial Blood Partial Pressure O2 76.0 mmHg (75.0-100.0) Arterial Blood HCO3 31.5 mmol/L (22.0-26.0) H Arterial Blood Oxygen Saturation 93.4 % (95-100) L Arterial Blood Base Excess 4.5 (-2-2) H Faheem Test Positive Current Medications Medications (Trade) Dose Ordered Sig/Toya Route PRN Reason Start Time Stop Time Status Last Admin Dose Admin Acetaminophen (Tylenol) 500 mg Q4HR PRN ORAL For Pain 07/17/20 00:00 08/16/20 00:00 07/24/20 03:39 Acetaminophen (Tylenol) 500 mg Q8H PRN ORAL FHMP 07/16/20 22:45 08/15/20 22:44 07/26/20 11:41 Albuterol Sulfate (Proventil MDI) 2 puff Q4H PRN INH Shortness of Breath 07/16/20 19:00 10/14/20 18:59 Chlorhexidine Gluconate (Yessi-Hex 2%) 1 applic DAILY@2000 TOPIC 07/21/20 20:00 10/19/20 19:59 07/25/20 20:51 Clonidine HCl (Catapres Tab) 0.1 mg Q4H PRN NG bp over 165 syst 07/21/20 12:00 10/14/20 22:44 Dexamethasone Sodium Phosphate (Decadron 10mg/ ml Inj) 6 mg DAILY IV 07/20/20 12:15 07/29/20 09:01 07/26/20 09:21 Dextrose (Dextrose 50%) 25 ml Q30M PRN IV Hypoglycemia 07/22/20 08:00 10/20/20 07:59 Dextrose (Dextrose 50%) 50 ml Q30M PRN IV Hypoglycemia 07/22/20 08:00 10/20/20 07:59 Docusate Sodium (Colace) 100 mg THREE TIMES A DAY NG 07/21/20 13:00 08/20/20 12:59 07/26/20 09:21 Epoetin Panchito (Epoetin Panchito(ESRD on dialysis)) 4,000 unit THU-THU-THU SUBQ 07/27/20 21:00 10/25/20 20:59 Haloperidol Lactate (Haldol) 5 mg Q6H PRN IM Agitation 07/17/20 17:30 08/31/20 17:29 07/18/20 21:34 Insulin Aspart (NovoLOG) Q6HR SUBQ 07/22/20 08:15 10/20/20 11:29 07/25/20 23:44 Insulin Detemir (Levemir) 12 units Q12HR SUBQ 07/24/20 09:00 10/20/20 09:59 07/26/20 09:25 Lorazepam (Ativan 2mg/ml 1ml) 1 mg Q4H PRN IV For Anxiety 07/20/20 22:15 07/27/20 22:14 07/26/20 09:26 Metoprolol Tartrate (Lopressor) 25 mg EVERY 6 HOURS NG 07/26/20 12:00 10/24/20 11:59 07/26/20 11:30 Pantoprazole (Protonix) 40 mg EVERY 12 HOURS IVP 07/21/20 21:00 08/20/20 20:59 07/26/20 09:21 Piperacillin Sod/ Tazobactam Sod 2.25 gm/Dextrose 55 ml @ 110 mls/hr Q8HR IV 07/24/20 14:00 07/29/20 13:59 07/26/20 13:13 Quetiapine Fumarate (SEROqueL) 50 mg Q12HR ORAL 07/17/20 14:00 08/31/20 13:59 07/26/20 09:21 Kalin Briseno MD Jul 26, 2020 14:46
--- NOTE | 2020-07-26 18:47 | NUR ---
NURSE NOTES: Patient with large BM, black stool, loose. Left a message for Dr. Daniel, no fashion coordinator as consult.
--- NOTE | 2020-07-26 19:12 | NUR ---
NURSE HAND-OFF REPORT: Latest Vital Signs: Temperature 101.9 , Pulse 104 , B/P 109 /60 , Respiratory Rate 20 , O2 SAT 100 , Nasal Cannula, O2 Flow Rate 3.0 . Vital Sign Comment: EKG Rhythm: Atrial Fibrillation Rhythm change?: N Notified?: Y -Dr. En CROFT Response: see EMAR Latest Elizabeth Fall Score: 50 Fall Risk: High Risk Safety Measures: Call light Within Reach, Bed Alarm Zone 1, Side Rails Side Rails x2, Bed position Low and Locked. Fall Precautions: Door Sign Report given to SIDNEY Mcclellan.
--- NOTE | 2020-07-26 19:30 | NUR ---
NURSE NOTES: pt report received from Joselyn Arzola RN. pt remains unchanged. pt appears alert and oriented times 1, opens eyes to light tactile stimuli , no change in mentation. pt remains oral intubated, and vented, pt sating 99% O2. no other resp distress noted. pt is on secured entrance monitor showing [facility], no abnormalities to cardiac rhythm. pt bed low, locked, armed, call light within reach, bed rails up times 3. will progress with plan of care.
--- NOTE | 2020-07-26 19:34 | General Progress Note ---
Subjective Allergies: Coded Allergies: No Known Allergies (Unverified , 05/12/17) Subjective above noted some dark stools noted per RN doing poorly - 100% O2 Objective Last 24 Hour Vital Signs Date Time Temp Pulse Resp B/P (MAP) Pulse Ox O2 Delivery O2 Flow Rate FiO2 07/26/20 19:00 104 20 109/60 (76) 100 07/26/20 18:00 115 19 108/48 (68) 100 07/26/20 17:57 115 113/60 07/26/20 17:00 101.9 125 19 119/45 (69) 100 07/26/20 16:00 100 07/26/20 16:00 129 23 122/46 (71) 100 07/26/20 16:00 144 07/26/20 15:56 106 23 100 07/26/20 15:00 135 23 118/57 (77) 100 07/26/20 14:00 108 26 123/66 (85) 99 07/26/20 13:00 118 24 124/45 (71) 100 07/26/20 12:30 116 26 121/44 (69) 100 07/26/20 12:17 101.0 07/26/20 12:00 101.7 129 25 110/46 (67) 100 07/26/20 12:00 100 07/26/20 12:00 117 07/26/20 11:57 150 140/59 07/26/20 11:30 143 138/59 07/26/20 11:28 128 17 100 07/26/20 11:00 137 23 130/83 (99) 100 07/26/20 10:00 105 17 89/48 (62) 100 07/26/20 09:56 153 31 117/67 100 07/26/20 09:26 123 25 145/101 97 07/26/20 09:00 130 24 143/75 (97) 97 07/26/20 08:30 115 21 139/65 (89) 98 07/26/20 08:00 93 07/26/20 08:00 99.2 109 21 142/83 (102) 99 07/26/20 08:00 100 07/26/20 07:28 114 23 100 07/26/20 07:00 105 23 127/57 (80) 99 07/26/20 06:00 103 29 124/49 (74) 99 07/26/20 05:09 102 111/46 07/26/20 05:00 104 18 111/46 (67) 97 07/26/20 04:00 98.5 112 19 143/60 (87) 96 07/26/20 04:00 100 07/26/20 04:00 95 07/26/20 03:00 92 19 119/56 (77) 100 07/26/20 02:31 103 21 100 07/26/20 02:00 104 30 139/65 (89) 93 07/26/20 01:00 119 23 141/55 (83) 91 07/26/20 00:00 90 07/26/20 00:00 100 07/26/20 00:00 98.3 96 24 123/54 (77) 93 07/25/20 23:00 103 24 137/50 (79) 92 07/25/20 22:32 103 16 100 07/25/20 22:16 100 126/51 07/25/20 22:00 94 19 126/51 (76) 97 07/25/20 21:00 84 18 118/37 (64) 95 07/25/20 20:00 98.5 100 19 129/47 (74) 95 07/25/20 20:00 100 07/25/20 20:00 104 Intake and Output 07/25/20 07/26/20 19:00 07:00 Intake Total 670 ml 415 ml Output Total 3000 ml Balance 670 ml -2585 ml Free Water 200 ml IV Total 110 ml 55 ml Tube Feeding 360 ml 360 ml Hemodialysis UF 3000 ml # Bowel Movements 1 Laboratory Tests 07/25/20 20:48: POC Whole Blood Glucose [Pending] 07/25/20 23:30: POC Whole Blood Glucose 188H 07/26/20 04:30: White Blood Count 16.2H, Red Blood Count 2.33L, Hemoglobin 8.5L, Hematocrit 24.9L, Mean Corpuscular Volume 107H, Mean Corpuscular Hemoglobin 36.7H, Mean Corpuscular Hemoglobin Concent 34.2, Red Cell Distribution Width 16.0H, Platelet Count 136L, Mean Platelet Volume 8.8, Neutrophils (%) (Auto) , Lymphocytes (%) (Auto) , Monocytes (%) (Auto) , Eosinophils (%) (Auto) , Basophils (%) (Auto) , Differential Total Cells Counted 100, Neutrophils % (Manual) 92H, Lymphocytes % (Manual) 3L, Monocytes % (Manual) 5, Eosinophils % (Manual) 0, Basophils % (Manual) 0, Band Neutrophils 0, Platelet Estimate DecreasedL, Platelet Morphology Normal, Hypochromasia 1+, Anisocytosis 1+, Sodium Level 141, Potassium Level 4.1, Chloride Level 100, Carbon Dioxide Level 33H, Anion Gap 8, Blood Urea Nitrogen 90H, Creatinine 4.6H, Estimat Glomerular Filtration Rate 9.4, Glucose Level 141H, Calcium Level 8.5, Phosphorus Level 3.9, Magnesium Level 2.0, Total Bilirubin 1.3H, Direct Bilirubin 0.8H, Aspartate Amino Transf (AST/SGOT) 34, Alanine Aminotransferase (ALT/SGPT) 147H, Alkaline Phosphatase 198H, C-Reactive Protein, Quantitative 17.5H, Pro-B-Type Natriuretic Peptide > 67075G, Total Protein 6.2L, Albumin 2.0L, Globulin 4.2, Albumin/Globulin Ratio 0.5L, Digoxin Level 0.5L 07/26/20 05:25: POC Whole Blood Glucose 121H 07/26/20 08:24: Arterial Blood pH 7.326L, Arterial Blood Partial Pressure CO2 61.6*H, Arterial Blood Partial Pressure O2 76.0, Arterial Blood HCO3 31.5H, Arterial Blood Oxygen Saturation 93.4L, Arterial Blood Base Excess 4.5H, Faheem Test Positive 07/26/20 16:31: POC Whole Blood Glucose 180H Height (Feet): 5 Height (Inches): 4.00 Weight (Pounds): 180 Objective Eledely woman on vent NCAT coarse BS RR abd soft no edema Assessment/Plan Status: deteriorating Assessment/Plan: Assessment - Recurrent GI bleed - anemia - s/p multiple endoscopies and colonoscopies this year - resp failure - COPD - COVID PNA - abnormal LFT - presumed COVID related - DM - Poor Px Recommendations - PPI BID - Tube feeds - follow labs - HD - PRN transfusion - No plans for endoscopy per discussion with family Ramakrishna Leonadr MD Jul 26, 2020 19:34
[2020-07-26] MEDS: Dyna-Hex 2% Top Sol 2oz TOPIC SCH (20:48)
--- NOTE | 2020-07-26 21:40 | NUR ---
NURSE NOTES: pts 9PM meds passed. no change in condition.
--- NOTE | 2020-07-26 23:35 | Psychiatric Progress Note ---
Psychiatry Progress Note Psychiatry Progress Note Medications Current Medications Medications (Trade) Dose Ordered Sig/Toya Route PRN Reason Start Time Stop Time Status Last Admin Dose Admin Acetaminophen (Tylenol) 500 mg Q4HR PRN ORAL For Pain 07/17/20 00:00 08/16/20 00:00 07/24/20 03:39 Acetaminophen (Tylenol) 500 mg Q8H PRN ORAL FHMP 07/16/20 22:45 08/15/20 22:44 07/26/20 11:41 Albuterol Sulfate (Proventil MDI) 2 puff Q4H PRN INH Shortness of Breath 07/16/20 19:00 10/14/20 18:59 Chlorhexidine Gluconate (Yessi-Hex 2%) 1 applic DAILY@1999 TOPIC 07/21/20 20:00 10/19/20 19:59 07/26/20 20:48 Clonidine HCl (Catapres Tab) 0.1 mg Q4H PRN NG bp over 165 syst 07/21/20 12:00 10/14/20 22:44 Dexamethasone Sodium Phosphate (Decadron 10mg/ ml Inj) 6 mg DAILY IV 07/20/20 12:15 07/29/20 09:01 07/26/20 09:21 Dextrose (Dextrose 50%) 25 ml Q30M PRN IV Hypoglycemia 07/22/20 08:00 10/20/20 07:59 Dextrose (Dextrose 50%) 50 ml Q30M PRN IV Hypoglycemia 07/22/20 08:00 10/20/20 07:59 Docusate Sodium (Colace) 100 mg THREE TIMES A DAY NG 07/21/20 13:00 08/20/20 12:59 07/26/20 17:59 Epoetin Panchito (Epoetin Panchito(ESRD on dialysis)) 4,000 unit THU-THU-THU SUBQ 07/27/20 21:00 10/25/20 20:59 Haloperidol Lactate (Haldol) 5 mg Q6H PRN IM Agitation 07/17/20 17:30 08/31/20 17:29 07/18/20 21:34 Insulin Aspart (NovoLOG) Q6HR SUBQ 07/22/20 08:15 10/20/20 11:29 07/26/20 23:17 Insulin Detemir (Levemir) 12 units Q12HR SUBQ 07/24/20 09:00 10/20/20 09:59 07/26/20 20:50 Lorazepam (Ativan 2mg/ml 1ml) 1 mg Q4H PRN IV For Anxiety 07/20/20 22:15 07/27/20 22:14 07/26/20 09:26 Metoprolol Tartrate (Lopressor) 25 mg EVERY 6 HOURS NG 07/26/20 12:00 10/24/20 11:59 07/26/20 23:18 Pantoprazole (Protonix) 40 mg EVERY 12 HOURS IVP 07/21/20 21:00 08/20/20 20:59 07/26/20 20:49 Piperacillin Sod/ Tazobactam Sod 2.25 gm/Dextrose 55 ml @ 110 mls/hr Q8HR IV 07/24/20 14:00 07/29/20 13:59 07/26/20 21:06 Quetiapine Fumarate (SEROqueL) 50 mg Q12HR ORAL 07/17/20 14:00 08/31/20 13:59 07/26/20 20:49 Neurological/Psychiatric: Reports: anxiety, depressed, emotional problems; Denies: no symptoms, headache, numbness, paresthesia, pre-existing deficit, seizure, tingling, tremors, weakness, other Allergies: Coded Allergies: No Known Allergies (Unverified , 05/12/17) Objective Data Height (Feet): 5 Height (Inches): 4.00 Weight (Pounds): 180 General Appearance: no apparent distress Additional Comments: MENTAL STATUS EXAMINATION: The patient is having waxing and waning consciousness. Mood is irritable and anxious. Affect is blunted, congruent with mood. Thought process is concrete. Thought content, no suicidal or homicidal ideation. Cognition is impaired. Insight and judgment is impaired. Assessment/Plan [place] I: ASSESSMENT: [place] I Acute toxic encephalopathy. [place] II Deferred. [place] III COVID-19. [place] IV Low. [place] V 20. PLAN: 1. We will start the patient on low dose of antipsychotics. 2. restraints. 3. Discussed with the nurse. Status: deteriorating Status Narrative ASSESSMENT: [place] I Acute toxic encephalopathy. [place] II Deferred. [place] III COVID-19. [place] IV Low. [place] V 20. PLAN: 1. We will start the patient on low dose of antipsychotics. 2. restraints. 3. Discussed with the nurse. Assessment/Plan: ASSESSMENT: [place] I Acute toxic encephalopathy. [place] II Deferred. [place] III COVID-19. [place] IV Low. [place] V 20. PLAN: 1. We will start the patient on low dose of antipsychotics. 2. restraints. 3. Discussed with the nurse. Alecia Collins MD Jul 26, 2020 23:35
--- NOTE | 2020-07-26 23:40 | NUR ---
NURSE NOTES: pts blood sugar at 331 from finger stick. no change in condition. insulin given per protocol/ sliding scale.
[2020-07-27] VITALS (24 sets, daily range): BP systolic 85–145; BP diastolic 31–63
--- NOTE | 2020-07-27 03:07 | NUR ---
NURSE NOTES: vital signs stable. pt resting in bed. vent setting per doctor order.
--- NOTE | 2020-07-27 05:10 | NUR ---
NURSE NOTES: 6 AM meds passed. blood sugar noted to be 211. pt remains A fib, condition unchanged.
[2020-07-27] MEDS: Piperacillin/Tazobactam 2.25 GM in D5W 55 ML IV SCH ×3 (05:43→21:31)
[2020-07-27] MEDS: NovoLOG Insulin Flexpen SUBQ SCH ×4 (05:46→23:14)
[2020-07-27 06:04] LABS: HEMATOCRIT 26.7 % (37.0-47.0); HEMOGLOBIN 8.5 G/DL (12.0-16.0); MEAN CORPUSCULAR VOLUME 106 FL (80-99); PLATELET COUNT 189 K/UL (150-450); RED BLOOD COUNT 2.53 M/UL (4.20-5.40); RED CELL DISTRIBUTION WIDTH 15.9 % (11.6-14.8); WHITE BLOOD COUNT 17.3 K/UL (4.8-10.8)
--- NOTE | 2020-07-27 06:25 | NUR ---
NURSE NOTES: spoke to Dr En Helms by bed side. stated pt is still A fib. reported pt has had dark stools. Dr Girard ordered OB stool to collect.
--- NOTE | 2020-07-27 06:56 | NUR ---
NURSE HAND-OFF REPORT: Latest Vital Signs: Temperature 99.4 , Pulse 91 , B/P 136 /44 , Respiratory Rate 16 , O2 SAT 98 , Nasal Cannula, O2 Flow Rate 3.0 . Vital Sign Comment: Stable EKG Rhythm: Atrial Fibrillation Rhythm change?: N Notified?: Roxanne Gatica MD Response: Latest Elizabeth Fall Score: 50 Fall Risk: High Risk Safety Measures: Call light Within Reach, Bed Alarm Zone 1, Side Rails Side Rails x2, Bed position Low and Locked. Fall Precautions: Door Sign Report given to Babs Kemp RN.
[2020-07-27 06:58] LABS: ALBUMIN 2.3 G/DL (3.4-5.0); ALBUMIN/GLOBULIN RATIO 0.5 (1.0-2.7); BILIRUBIN,TOTAL 1.2 MG/DL (0.2-1.0); CALCIUM 8.9 MG/DL (8.5-10.1); CREATININE 4.3 MG/DL (0.55-1.30); PHOSPHORUS 4.7 MG/DL (2.5-4.9); POTASSIUM 4.2 MMOL/L (3.5-5.1)
--- NOTE | 2020-07-27 07:05 | NUR ---
NURSE HAND-OFF REPORT: Latest Vital Signs: Temperature 99.4 , Pulse 91 , B/P 136 /44 , Respiratory Rate 16 , O2 SAT 98 , Nasal Cannula, O2 Flow Rate 3.0 . Vital Sign Comment: [stable] EKG Rhythm: Atrial Fibrillation Rhythm change?: N Notified?: Y Vince Gatica MD Response: Latest Elizabeth Fall Score: 50 Fall Risk: High Risk Safety Measures: Call light Within Reach, Bed Alarm Zone 1, Side Rails Side Rails x2, Bed position Low and Locked. Fall Precautions: Door Sign Report given to [[facility] nurse]. Addendum: 07/27/20 at 0708 by NAM SOUSA RN LONNY PT
[2020-07-27 07:15] LABS: BILIRUBIN,DIRECT 0.7 MG/DL (0.0-0.3)
--- NOTE | 2020-07-27 07:27 | NUR ---
NURSE NOTES: Received report from Eleuterio Mckenzie RN.
--- NOTE | 2020-07-27 07:28 | Cardiac Electrophysiology PN ---
Assessment/Plan Assessment/Plan 1. Accelerated HTN. Better on Lopressor 25 po q 6hr and p.r.n.clonidine. EF 40- 45% 2. Atrial fib with RVR with HR up to 150s. Rate stable on Lopressor 25 q 6 hr and also got Lopressor 10 mg ivp yesterday 3. ESRD, on hemodialysis. 4. Hyponatremia, sodium 129. Fluid restriction per Dr. Falk. 5. Volume overload, BNP of more than 35,000 and EF 40-45%. On HD 6. Covid PNA and resp failure on the Vent with 100% Fio2 and PEEP 15 Covid positive 07/11 and 07/17 7. Tarry stool. Will check stool OB DW RN Subjective Subjective Confused in restraints. In Covid isolation. Intubated on 100% Fio2 and PEEP 10. Had HD 3 liter yesterday. Developed atrial fib with RVR 140s. Now HR 70s in atrial fib on Lopressor. Has Tarry stool per RN Objective Last 24 Hour Vital Signs Date Time Temp Pulse Resp B/P (MAP) Pulse Ox O2 Delivery O2 Flow Rate FiO2 07/27/20 06:00 91 16 136/44 (74) 98 07/27/20 05:44 85 130/51 07/27/20 05:00 97 16 145/50 (81) 97 07/27/20 04:00 97 07/27/20 04:00 100 07/27/20 04:00 99.4 100 16 143/54 (83) 96 07/27/20 03:01 94 20 100 07/27/20 03:00 90 17 115/42 (66) 100 07/27/20 02:00 95 18 131/54 (79) 98 07/27/20 01:00 98 22 133/54 (80) 97 07/27/20 00:00 100 07/27/20 00:00 99.5 102 26 142/57 (85) 99 07/27/20 00:00 91 07/26/20 23:20 90 18 100 07/26/20 23:18 94 128/51 07/26/20 23:00 94 16 128/51 (76) 99 07/26/20 22:00 102 22 125/52 (76) 99 07/26/20 21:00 107 17 146/45 (78) 100 07/26/20 20:00 106 07/26/20 20:00 100 07/26/20 20:00 100.2 105 17 127/53 (77) 100 07/26/20 19:35 115 17 100 07/26/20 19:00 104 20 109/60 (76) 100 07/26/20 18:00 115 19 108/48 (68) 100 07/26/20 17:57 115 113/60 07/26/20 17:00 101.9 125 19 119/45 (69) 100 07/26/20 16:00 100 07/26/20 16:00 129 23 122/46 (71) 100 07/26/20 16:00 144 07/26/20 15:56 106 23 100 07/26/20 15:00 135 23 118/57 (77) 100 07/26/20 14:00 108 26 123/66 (85) 99 07/26/20 13:00 118 24 124/45 (71) 100 07/26/20 12:30 116 26 121/44 (69) 100 07/26/20 12:17 101.0 07/26/20 12:00 101.7 129 25 110/46 (67) 100 07/26/20 12:00 100 07/26/20 12:00 117 07/26/20 11:57 150 140/59 07/26/20 11:30 143 138/59 07/26/20 11:28 128 17 100 07/26/20 11:00 137 23 130/83 (99) 100 07/26/20 10:00 105 17 89/48 (62) 100 07/26/20 09:56 153 31 117/67 100 07/26/20 09:26 123 25 145/101 97 07/26/20 09:00 130 24 143/75 (97) 97 07/26/20 08:30 115 21 139/65 (89) 98 07/26/20 08:00 93 07/26/20 08:00 99.2 109 21 142/83 (102) 99 07/26/20 08:00 100 07/26/20 07:28 114 23 100 Intake and Output 07/26/20 07/27/20 19:00 07:00 Intake Total 595 ml 385 ml Balance 595 ml 385 ml Free Water 180 ml IV Total 55 ml 55 ml Tube Feeding 360 ml 330 ml # Bowel Movements 1 1 Laboratory Tests Test 07/26/20 08:24 07/26/20 16:31 07/26/20 20:45 07/27/20 04:55 Arterial Blood pH 7.326 (7.350-7.450) Arterial Blood Partial Pressure CO2 61.6 mmHg (35.0-45.0) *H Arterial Blood Partial Pressure O2 76.0 mmHg (75.0-100.0) Arterial Blood HCO3 31.5 mmol/L (22.0-26.0) H Arterial Blood Oxygen Saturation 93.4 % (95-100) L Arterial Blood Base Excess 4.5 (-2-2) H Faheem Test Positive POC Whole Blood Glucose 180 MG/DL (74-106) H 282 MG/DL (74-106) H White Blood Count 17.3 K/UL (4.8-10.8) H Red Blood Count 2.53 M/UL (4.20-5.40) L Hemoglobin 8.5 G/DL (12.0-16.0) L Hematocrit 26.7 % (37.0-47.0) L Mean Corpuscular Volume 106 FL (80-99) H Mean Corpuscular Hemoglobin 33.7 PG (27.0-31.0) H Mean Corpuscular Hemoglobin Concent 31.9 G/DL (32.0-36.0) L Red Cell Distribution Width 15.9 % (11.6-14.8) H Platelet Count 189 K/UL (150-450) Mean Platelet Volume 11.2 FL (6.5-10.1) H Neutrophils (%) (Auto) % (45.0-75.0) Lymphocytes (%) (Auto) % (20.0-45.0) Monocytes (%) (Auto) % (1.0-10.0) Eosinophils (%) (Auto) % (0.0-3.0) Basophils (%) (Auto) % (0.0-2.0) Neutrophils % (Manual) Pending Lymphocytes % (Manual) Pending Platelet Estimate Pending Platelet Morphology Pending Sodium Level 142 MMOL/L (136-145) Potassium Level 4.2 MMOL/L (3.5-5.1) Chloride Level 103 MMOL/L (98-107) Carbon Dioxide Level 28 MMOL/L (21-32) Anion Gap 12 mmol/L (5-15) Blood Urea Nitrogen 84 mg/dL (7-18) H Creatinine 4.3 MG/DL (0.55-1.30) H Estimat Glomerular Filtration Rate 10.2 mL/min (>60) Glucose Level 239 MG/DL (74-106) H Uric Acid 4.4 MG/DL (2.6-7.2) Calcium Level 8.9 MG/DL (8.5-10.1) Phosphorus Level 4.7 MG/DL (2.5-4.9) Magnesium Level 2.3 MG/DL (1.8-2.4) Total Bilirubin 1.2 MG/DL (0.2-1.0) H Direct Bilirubin 0.7 MG/DL (0.0-0.3) H Aspartate Amino Transf (AST/SGOT) 52 U/L (15-37) H Alanine Aminotransferase (ALT/SGPT) 23 U/L (12-78) Alkaline Phosphatase 242 U/L (46-116) H C-Reactive Protein, Quantitative 20.0 mg/dL (0.00-0.90) H Total Protein 6.7 G/DL (6.4-8.2) Albumin 2.3 G/DL (3.4-5.0) L Globulin 4.4 g/dL Albumin/Globulin Ratio 0.5 (1.0-2.7) L Test 07/27/20 05:16 POC Whole Blood Glucose 211 MG/DL (74-106) H Objective HEAD AND NECK: .Orally intubated LUNGS: Coarse rhonchi. CARDIOVASCULAR: Regular S1 and S2 with no gallop or murmur. ABDOMEN: Soft. EXTREMITIES: No pitting edema. Zev Gatica MD Jul 27, 2020 07:28
--- NOTE | 2020-07-27 07:38 | NUR ---
NURSE NOTES: CN will take over care of this pt.
[2020-07-27] MEDS: dexAMETHasone 10mg/ml Inj IV SCH (08:57)
[2020-07-27] MEDS: Pantoprazole Inj IVP SCH ×2 (08:57→21:31)
[2020-07-27] MEDS: Docusate 100mg/10ml Liq NG SCH ×3 (08:57→17:39)
[2020-07-27] MEDS: Levemir Flexpen SUBQ SCH ×2 (08:59→21:34)
--- NOTE | 2020-07-27 09:13 | Hematology/Onc Progress Note ---
Assessment/Plan Assessment/Plan Assessment/Plan 1. Pancytopenia with hx anemia due to underlying chronic disease. Have reviewed prior workup, ferritin is >1000, covid19++++ --> Continue to closely monitor. --> Transfuse if hgb <7 --> ferritin is >1000 --> give epogen, has been started 3x a week --> as per renal --> monitor for gi bleed, gi consulted --> hgb trend 7.8-->9.3->8.9->>11-->9.5->8.9->8 --> plt 42-->50-->65-->104-->109 --> ABX zosyn --> smear has been reviewed --> hep and hiv neg 2. Leukopenia likely reactive process v infection v from meds --> hepatitis and hiv prior negative --> neutropenic precautions if ANC <1500 --> trending stable --> imaging reviewed and no hsm / cirrhosis noted --> wbc 2.7-->3.6->>>2->5-->8-->17 --> increase in wbc due to steriods --> ANC goal >1500 3. End-stage renal disease, on hemodialysis three times a week. --> renal consulted --> continue hd 4. History of coronary artery disease. --> cards reviewed --> diuresis prn 5. History of anemia due to low B12, low iron --> b12 is currently within normal limits --> reobtain q6mo 6. Dizziness and unsteady gait 7. Covid 19 --> rx per id 8. DVt ppsx with SCDs Greatly appreciate consultation and Dw RN Subjective Allergies: Coded Allergies: No Known Allergies (Unverified , 05/12/17) All Systems: reviewed and negative except above Subjective 07/19 meds noted, s/p hd, bp has improved, no bleeding, labs reviewed 07/20 labs are noted, no bleeding, meds reviewed, no major changes, hgb 9.5 07/22 remains in the icu, no bleeding, meds reviewed, on nc 07/23 labs noted, no bleeding, in icu, hgb 8.7, plt 90 07/24 is intubated, hgb 11, no bleeding, plt are better, meds reviewed 07/25 remains on zosyn, labs are noted, no bleeding, icu, meds ntoed, s/p hd yesterday with renal 07/26 seen at bedside with Justo Toro, doing HD today, is in the icu, have ordered epo\ 07/27 black tarry stools overnight, no bleeding, labs reviewed, plt better Objective Objective Current Medications Medications (Trade) Dose Ordered Sig/Toya Route PRN Reason Start Time Stop Time Status Last Admin Dose Admin Acetaminophen (Tylenol) 500 mg Q4HR PRN ORAL For Pain 07/17/20 00:00 08/16/20 00:00 07/24/20 03:39 Acetaminophen (Tylenol) 500 mg Q8H PRN ORAL FHMP 07/16/20 22:45 08/15/20 22:44 07/26/20 11:41 Albuterol Sulfate (Proventil MDI) 2 puff Q4H PRN INH Shortness of Breath 07/16/20 19:00 10/14/20 18:59 Chlorhexidine Gluconate (Yessi-Hex 2%) 1 applic DAILY@1999 TOPIC 07/21/20 20:00 10/19/20 19:59 07/26/20 20:48 Clonidine HCl (Catapres Tab) 0.1 mg Q4H PRN NG bp over 165 syst 07/21/20 12:00 10/14/20 22:44 Dexamethasone Sodium Phosphate (Decadron 10mg/ ml Inj) 6 mg DAILY IV 07/20/20 12:15 07/29/20 09:01 07/27/20 08:57 Dextrose (Dextrose 50%) 25 ml Q30M PRN IV Hypoglycemia 07/22/20 08:00 10/20/20 07:59 Dextrose (Dextrose 50%) 50 ml Q30M PRN IV Hypoglycemia 07/22/20 08:00 10/20/20 07:59 Docusate Sodium (Colace) 100 mg THREE TIMES A DAY NG 07/21/20 13:00 08/20/20 12:59 07/27/20 08:57 Epoetin Panchito (Epoetin Panchito(ESRD on dialysis)) 4,000 unit MON-WED-THU SUBQ 07/27/20 21:00 10/25/20 20:59 Haloperidol Lactate (Haldol) 5 mg Q6H PRN IM Agitation 07/17/20 17:30 08/31/20 17:29 07/18/20 21:34 Insulin Aspart (NovoLOG) Q6HR SUBQ 07/22/20 08:15 10/20/20 11:29 07/27/20 05:46 Insulin Detemir (Levemir) 12 units Q12HR SUBQ 07/24/20 09:00 10/20/20 09:59 07/27/20 08:59 Lorazepam (Ativan 2mg/ml 1ml) 1 mg Q4H PRN IV For Anxiety 07/20/20 22:15 07/27/20 22:14 07/26/20 09:26 Metoprolol Tartrate (Lopressor) 25 mg EVERY 6 HOURS NG 07/26/20 12:00 10/24/20 11:59 07/27/20 05:44 Pantoprazole (Protonix) 40 mg EVERY 12 HOURS IVP 07/21/20 21:00 08/20/20 20:59 07/27/20 08:57 Piperacillin Sod/ Tazobactam Sod 2.25 gm/Dextrose 55 ml @ 110 mls/hr Q8HR IV 07/24/20 14:00 07/29/20 13:59 07/27/20 05:43 Quetiapine Fumarate (SEROqueL) 50 mg Q12HR ORAL 07/17/20 14:00 08/31/20 13:59 07/27/20 08:57 Last 24 Hour Vital Signs Date Time Temp Pulse Resp B/P (MAP) Pulse Ox O2 Delivery O2 Flow Rate FiO2 07/27/20 08:00 94 07/27/20 08:00 100 07/27/20 08:00 91 16 128/60 (82) 98 07/27/20 07:00 96 17 145/49 (81) 96 07/27/20 06:00 91 16 136/44 (74) 98 07/27/20 05:44 85 130/51 07/27/20 05:00 97 16 145/50 (81) 97 07/27/20 04:00 97 07/27/20 04:00 100 07/27/20 04:00 99.4 100 16 143/54 (83) 96 07/27/20 03:01 94 20 100 07/27/20 03:00 90 17 115/42 (66) 100 07/27/20 02:00 95 18 131/54 (79) 98 07/27/20 01:00 98 22 133/54 (80) 97 07/27/20 00:00 100 07/27/20 00:00 99.5 102 26 142/57 (85) 99 07/27/20 00:00 91 07/26/20 23:20 90 18 100 07/26/20 23:18 94 128/51 07/26/20 23:00 94 16 128/51 (76) 99 07/26/20 22:00 102 22 125/52 (76) 99 07/26/20 21:00 107 17 146/45 (78) 100 07/26/20 20:00 106 07/26/20 20:00 100 07/26/20 20:00 100.2 105 17 127/53 (77) 100 07/26/20 19:35 115 17 100 07/26/20 19:00 104 20 109/60 (76) 100 07/26/20 18:00 115 19 108/48 (68) 100 07/26/20 17:57 115 113/60 07/26/20 17:00 101.9 125 19 119/45 (69) 100 07/26/20 16:00 100 07/26/20 16:00 129 23 122/46 (71) 100 07/26/20 16:00 144 07/26/20 15:56 106 23 100 07/26/20 15:00 135 23 118/57 (77) 100 07/26/20 14:00 108 26 123/66 (85) 99 07/26/20 13:00 118 24 124/45 (71) 100 07/26/20 12:30 116 26 121/44 (69) 100 07/26/20 12:17 101.0 07/26/20 12:00 101.7 129 25 110/46 (67) 100 07/26/20 12:00 100 07/26/20 12:00 117 07/26/20 11:57 150 140/59 07/26/20 11:30 143 138/59 07/26/20 11:28 128 17 100 07/26/20 11:00 137 23 130/83 (99) 100 07/26/20 10:00 105 17 89/48 (62) 100 07/26/20 09:56 153 31 117/67 100 07/26/20 09:26 123 25 145/101 97 07/26/20 09:00 130 24 143/75 (97) 97 07/26/20 08:30 115 21 139/65 (89) 98 07/26/20 08:00 93 07/26/20 08:00 99.2 109 21 142/83 (102) 99 07/26/20 08:00 100 07/26/20 07:28 114 23 100 07/26/20 07:00 105 23 127/57 (80) 99 07/26/20 06:00 103 29 124/49 (74) 99 07/26/20 05:09 102 111/46 07/26/20 05:00 104 18 111/46 (67) 97 07/26/20 04:00 98.5 112 19 143/60 (87) 96 07/26/20 04:00 100 07/26/20 04:00 95 07/26/20 03:00 92 19 119/56 (77) 100 07/26/20 02:31 103 21 100 07/26/20 02:00 104 30 139/65 (89) 93 07/26/20 01:00 119 23 141/55 (83) 91 07/26/20 00:00 90 07/26/20 00:00 100 07/26/20 00:00 98.3 96 24 123/54 (77) 93 07/25/20 23:00 103 24 137/50 (79) 92 07/25/20 22:32 103 16 100 07/25/20 22:16 100 126/51 07/25/20 22:00 94 19 126/51 (76) 97 07/25/20 21:00 84 18 118/37 (64) 95 07/25/20 20:00 98.5 100 19 129/47 (74) 95 07/25/20 20:00 100 07/25/20 20:00 104 07/25/20 19:30 98.5 07/25/20 19:08 116 18 96 Mechanical Ventilator 100 07/25/20 19:00 105 18 111/46 (67) 97 07/25/20 18:45 116 18 100 07/25/20 18:00 109 19 111/46 (67) 99 07/25/20 17:00 129 25 129/54 (79) 97 07/25/20 16:00 100 07/25/20 16:00 115 07/25/20 16:00 101.0 125 24 121/44 (69) 97 07/25/20 15:00 82 20 116/55 (75) 100 07/25/20 14:48 133 26 100 07/25/20 14:11 131 07/25/20 14:00 94 20 112/54 (73) 100 07/25/20 13:25 100 07/25/20 13:00 131 20 120/58 (78) 96 07/25/20 12:00 97.8 126 20 120/55 (76) 100 07/25/20 12:00 Mechanical Ventilator 07/25/20 12:00 126 07/25/20 11:00 127 20 119/52 (74) 100 07/25/20 10:58 124 28 100 07/25/20 10:00 96 20 116/52 (73) 100 Intake and Output 07/26/20 07/27/20 19:00 07:00 Intake Total 595 ml 415 ml Balance 595 ml 415 ml Free Water 180 ml IV Total 55 ml 55 ml Tube Feeding 360 ml 360 ml # Bowel Movements 1 1 Labs Test 07/24/20 21:50 07/25/20 04:05 07/25/20 16:07 07/25/20 20:48 White Blood Count 14.3 K/UL (4.8-10.8) Red Blood Count 2.26 M/UL (4.20-5.40) Hemoglobin 8.0 G/DL (12.0-16.0) Hematocrit 22.7 % (37.0-47.0) Mean Corpuscular Volume 100 FL (80-99) Mean Corpuscular Hemoglobin 35.6 PG (27.0-31.0) Mean Corpuscular Hemoglobin Concent 35.5 G/DL (32.0-36.0) Red Cell Distribution Width 15.4 % (11.6-14.8) Platelet Count 109 K/UL (150-450) Mean Platelet Volume 8.7 FL (6.5-10.1) Neutrophils (%) (Auto) % (45.0-75.0) Lymphocytes (%) (Auto) % (20.0-45.0) Monocytes (%) (Auto) % (1.0-10.0) Eosinophils (%) (Auto) % (0.0-3.0) Basophils (%) (Auto) % (0.0-2.0) Differential Total Cells Counted 100 Neutrophils % (Manual) 94 % (45-75) Lymphocytes % (Manual) 2 % (20-45) Monocytes % (Manual) 4 % (1-10) Eosinophils % (Manual) 0 % (0-3) Basophils % (Manual) 0 % (0-2) Band Neutrophils 0 % (0-8) Platelet Estimate Decreased Platelet Morphology Normal Anisocytosis 1+ Macrocytosis 1+ Sodium Level 141 MMOL/L (136-145) 141 MMOL/L (136-145) Potassium Level 3.4 MMOL/L (3.5-5.1) 4.1 MMOL/L (3.5-5.1) Chloride Level 99 MMOL/L (98-107) 99 MMOL/L (98-107) Carbon Dioxide Level 38 MMOL/L (21-32) 37 MMOL/L (21-32) Anion Gap 4 mmol/L (5-15) 5 mmol/L (5-15) Blood Urea Nitrogen 61 mg/dL (7-18) 82 mg/dL (7-18) Creatinine 3.9 MG/DL (0.55-1.30) 4.5 MG/DL (0.55-1.30) Estimat Glomerular Filtration Rate 11.4 mL/min (>60) 9.6 mL/min (>60) Glucose Level 200 MG/DL (74-106) 89 MG/DL (74-106) Calcium Level 8.3 MG/DL (8.5-10.1) 8.7 MG/DL (8.5-10.1) Phosphorus Level 2.9 MG/DL (2.5-4.9) Magnesium Level 2.0 MG/DL (1.8-2.4) Total Bilirubin 1.5 MG/DL (0.2-1.0) Direct Bilirubin 1.1 MG/DL (0.0-0.3) Aspartate Amino Transf (AST/SGOT) 28 U/L (15-37) Alanine Aminotransferase (ALT/SGPT) 9 U/L (12-78) Alkaline Phosphatase 210 U/L (46-116) Troponin I 0.497 ng/mL (0.000-0.056) C-Reactive Protein, Quantitative 26.1 mg/dL (0.00-0.90) Pro-B-Type Natriuretic Peptide > 75386 pg/mL (0-125) Total Protein 6.4 G/DL (6.4-8.2) Albumin 2.3 G/DL (3.4-5.0) Globulin 4.1 g/dL Albumin/Globulin Ratio 0.6 (1.0-2.7) Test 07/25/20 23:30 07/26/20 04:30 07/26/20 05:25 07/26/20 08:24 POC Whole Blood Glucose 188 MG/DL (74-106) 121 MG/DL (74-106) White Blood Count 16.2 K/UL (4.8-10.8) Red Blood Count 2.33 M/UL (4.20-5.40) Hemoglobin 8.5 G/DL (12.0-16.0) Hematocrit 24.9 % (37.0-47.0) Mean Corpuscular Volume 107 FL (80-99) Mean Corpuscular Hemoglobin 36.7 PG (27.0-31.0) Mean Corpuscular Hemoglobin Concent 34.2 G/DL (32.0-36.0) Red Cell Distribution Width 16.0 % (11.6-14.8) Platelet Count 136 K/UL (150-450) Mean Platelet Volume 8.8 FL (6.5-10.1) Neutrophils (%) (Auto) % (45.0-75.0) Lymphocytes (%) (Auto) % (20.0-45.0) Monocytes (%) (Auto) % (1.0-10.0) Eosinophils (%) (Auto) % (0.0-3.0) Basophils (%) (Auto) % (0.0-2.0) Differential Total Cells Counted 100 Neutrophils % (Manual) 92 % (45-75) Lymphocytes % (Manual) 3 % (20-45) Monocytes % (Manual) 5 % (1-10) Eosinophils % (Manual) 0 % (0-3) Basophils % (Manual) 0 % (0-2) Band Neutrophils 0 % (0-8) Platelet Estimate Decreased Platelet Morphology Normal Hypochromasia 1+ Anisocytosis 1+ Sodium Level 141 MMOL/L (136-145) Potassium Level 4.1 MMOL/L (3.5-5.1) Chloride Level 100 MMOL/L (98-107) Carbon Dioxide Level 33 MMOL/L (21-32) Anion Gap 8 mmol/L (5-15) Blood Urea Nitrogen 90 mg/dL (7-18) Creatinine 4.6 MG/DL (0.55-1.30) Estimat Glomerular Filtration Rate 9.4 mL/min (>60) Glucose Level 141 MG/DL (74-106) Calcium Level 8.5 MG/DL (8.5-10.1) Phosphorus Level 3.9 MG/DL (2.5-4.9) Magnesium Level 2.0 MG/DL (1.8-2.4) Total Bilirubin 1.3 MG/DL (0.2-1.0) Direct Bilirubin 0.8 MG/DL (0.0-0.3) Aspartate Amino Transf (AST/SGOT) 34 U/L (15-37) Alanine Aminotransferase (ALT/SGPT) 147 U/L (12-78) Alkaline Phosphatase 198 U/L (46-116) C-Reactive Protein, Quantitative 17.5 mg/dL (0.00-0.90) Pro-B-Type Natriuretic Peptide > 02518 pg/mL (0-125) Total Protein 6.2 G/DL (6.4-8.2) Albumin 2.0 G/DL (3.4-5.0) Globulin 4.2 g/dL Albumin/Globulin Ratio 0.5 (1.0-2.7) Digoxin Level 0.5 NG/ML (0.9-2.0) Arterial Blood pH 7.326 (7.350-7.450) Arterial Blood Partial Pressure CO2 61.6 mmHg (35.0-45.0) Arterial Blood Partial Pressure O2 76.0 mmHg (75.0-100.0) Arterial Blood HCO3 31.5 mmol/L (22.0-26.0) Arterial Blood Oxygen Saturation 93.4 % (95-100) Arterial Blood Base Excess 4.5 (-2-2) Faheem Test Positive Test 07/26/20 16:31 07/26/20 20:45 07/27/20 04:55 07/27/20 05:16 POC Whole Blood Glucose 180 MG/DL (74-106) 282 MG/DL (74-106) 211 MG/DL (74-106) White Blood Count 17.3 K/UL (4.8-10.8) Red Blood Count 2.53 M/UL (4.20-5.40) Hemoglobin 8.5 G/DL (12.0-16.0) Hematocrit 26.7 % (37.0-47.0) Mean Corpuscular Volume 106 FL (80-99) Mean Corpuscular Hemoglobin 33.7 PG (27.0-31.0) Mean Corpuscular Hemoglobin Concent 31.9 G/DL (32.0-36.0) Red Cell Distribution Width 15.9 % (11.6-14.8) Platelet Count 189 K/UL (150-450) Mean Platelet Volume 11.2 FL (6.5-10.1) Neutrophils (%) (Auto) % (45.0-75.0) Lymphocytes (%) (Auto) % (20.0-45.0) Monocytes (%) (Auto) % (1.0-10.0) Eosinophils (%) (Auto) % (0.0-3.0) Basophils (%) (Auto) % (0.0-2.0) Differential Total Cells Counted 100 Neutrophils % (Manual) 92 % (45-75) Lymphocytes % (Manual) 4 % (20-45) Monocytes % (Manual) 4 % (1-10) Eosinophils % (Manual) 0 % (0-3) Basophils % (Manual) 0 % (0-2) Band Neutrophils 0 % (0-8) Platelet Estimate Adequate Platelet Morphology Normal Polychromasia 1+ Hypochromasia 1+ Anisocytosis 1+ Sodium Level 142 MMOL/L (136-145) Potassium Level 4.2 MMOL/L (3.5-5.1) Chloride Level 103 MMOL/L (98-107) Carbon Dioxide Level 28 MMOL/L (21-32) Anion Gap 12 mmol/L (5-15) Blood Urea Nitrogen 84 mg/dL (7-18) Creatinine 4.3 MG/DL (0.55-1.30) Estimat Glomerular Filtration Rate 10.2 mL/min (>60) Glucose Level 239 MG/DL (74-106) Uric Acid 4.4 MG/DL (2.6-7.2) Calcium Level 8.9 MG/DL (8.5-10.1) Phosphorus Level 4.7 MG/DL (2.5-4.9) Magnesium Level 2.3 MG/DL (1.8-2.4) Total Bilirubin 1.2 MG/DL (0.2-1.0) Direct Bilirubin 0.7 MG/DL (0.0-0.3) Aspartate Amino Transf (AST/SGOT) 52 U/L (15-37) Alanine Aminotransferase (ALT/SGPT) 23 U/L (12-78) Alkaline Phosphatase 242 U/L (46-116) C-Reactive Protein, Quantitative 20.0 mg/dL (0.00-0.90) Total Protein 6.7 G/DL (6.4-8.2) Albumin 2.3 G/DL (3.4-5.0) Globulin 4.4 g/dL Albumin/Globulin Ratio 0.5 (1.0-2.7) Height (Feet): 5 Height (Inches): 4.00 Weight (Pounds): 180 Objective Physical Exam General Appearance: alert, obese, Chronically Ill Neck: full range of motion Respiratory: wheezing Cardiovascular: edema Gastrointestinal: normal inspection, soft 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
--- NOTE | 2020-07-27 11:22 | NUR ---
0815 awake/ does not follow comamds v/s conditio stable
--- NOTE | 2020-07-27 11:24 | NUR ---
pt,seen by mamie campbell no new orderspt,had softbm mod,amt, no bleeding noted
--- NOTE | 2020-07-27 12:53 | Pulmonology Progress Note ---
Subjective ROS Limited/Unobtainable: Yes Interval Events: seen in ICU; remains intubated Constitutional: Reports: fever, other - Ud=662.7 HEENT: Repors: no symptoms Respiratory: Reports: no symptoms Cardiovascular: Reports: no symptoms Gastrointestinal/Abdominal: Reports: no symptoms Genitourinary: Reports: no symptoms Allergies: Coded Allergies: No Known Allergies (Unverified , 05/12/17) All Systems: reviewed and negative except above Objective Last 24 Hour Vital Signs Date Time Temp Pulse Resp B/P (MAP) Pulse Ox O2 Delivery O2 Flow Rate FiO2 07/27/20 12:19 89 127/63 07/27/20 12:00 97 07/27/20 12:00 98 18 127/63 (84) 98 07/27/20 12:00 100 07/27/20 11:30 98 18 100 07/27/20 11:00 92 19 109/47 (67) 98 07/27/20 10:00 92 19 108/46 (66) 98 07/27/20 09:00 98.6 93 19 111/45 (67) 98 07/27/20 08:00 94 07/27/20 08:00 100 07/27/20 08:00 91 16 128/60 (82) 98 07/27/20 07:50 90 17 100 07/27/20 07:00 96 17 145/49 (81) 96 07/27/20 06:00 91 16 136/44 (74) 98 07/27/20 05:44 85 130/51 07/27/20 05:00 97 16 145/50 (81) 97 07/27/20 04:00 97 07/27/20 04:00 100 07/27/20 04:00 99.4 100 16 143/54 (83) 96 07/27/20 03:01 94 20 100 07/27/20 03:00 90 17 115/42 (66) 100 07/27/20 02:00 95 18 131/54 (79) 98 07/27/20 01:00 98 22 133/54 (80) 97 07/27/20 00:00 100 07/27/20 00:00 99.5 102 26 142/57 (85) 99 07/27/20 00:00 91 07/26/20 23:20 90 18 100 07/26/20 23:18 94 128/51 07/26/20 23:00 94 16 128/51 (76) 99 07/26/20 22:00 102 22 125/52 (76) 99 07/26/20 21:00 107 17 146/45 (78) 100 07/26/20 20:00 106 07/26/20 20:00 100 07/26/20 20:00 100.2 105 17 127/53 (77) 100 07/26/20 19:35 115 17 100 07/26/20 19:00 104 20 109/60 (76) 100 07/26/20 18:00 115 19 108/48 (68) 100 07/26/20 17:57 115 113/60 07/26/20 17:00 101.9 125 19 119/45 (69) 100 07/26/20 16:00 100 07/26/20 16:00 129 23 122/46 (71) 100 07/26/20 16:00 144 07/26/20 15:56 106 23 100 07/26/20 15:00 135 23 118/57 (77) 100 07/26/20 14:00 108 26 123/66 (85) 99 07/26/20 13:00 118 24 124/45 (71) 100 Intake and Output 07/26/20 07/27/20 18:59 06:59 Intake Total 595 ml 415 ml Balance 595 ml 415 ml Free Water 180 ml IV Total 55 ml 55 ml Tube Feeding 360 ml 360 ml # Bowel Movements 1 1 General Appearance: WD/WN, no acute distress, other - intubation HEENT: normocephalic Respiratory: chest wall non-tender, crackles/rales Cardiovascular: normal rate, regular rhythm Laboratory Tests 07/26/20 16:31: POC Whole Blood Glucose 180H 07/26/20 20:45: POC Whole Blood Glucose 282H 07/27/20 04:55: White Blood Count 17.3H, Red Blood Count 2.53L, Hemoglobin 8.5L, Hematocrit 26.7L, Mean Corpuscular Volume 106H, Mean Corpuscular Hemoglobin 33.7H, Mean Corpuscular Hemoglobin Concent 31.9L, Red Cell Distribution Width 15.9H, Platelet Count 189, Mean Platelet Volume 11.2H, Neutrophils (%) (Auto) , Lymphocytes (%) (Auto) , Monocytes (%) (Auto) , Eosinophils (%) (Auto) , Basophils (%) (Auto) , Differential Total Cells Counted 100, Neutrophils % (Manual) 92H, Lymphocytes % (Manual) 4L, Monocytes % (Manual) 4, Eosinophils % (Manual) 0, Basophils % (Manual) 0, Band Neutrophils 0, Platelet Estimate Adequate, Platelet Morphology Normal, Polychromasia 1+, Hypochromasia 1+, Anisocytosis 1+, Sodium Level 142, Potassium Level 4.2, Chloride Level 103, Carbon Dioxide Level 28, Anion Gap 12, Blood Urea Nitrogen 84H, Creatinine 4.3H, Estimat Glomerular Filtration Rate 10.2, Glucose Level 239H, Uric Acid 4.4, Calcium Level 8.9, Phosphorus Level 4.7, Magnesium Level 2.3, Total Bilirubin 1.2H, Direct Bilirubin 0.7H, Aspartate Amino Transf (AST/SGOT) 52H, Alanine Aminotransferase (ALT/SGPT) 23, Alkaline Phosphatase 242H, C-Reactive Protein, Quantitative 20.0H, Total Protein 6.7, Albumin 2.3L, Globulin 4.4, Albumin/Globulin Ratio 0.5L 07/27/20 05:16: POC Whole Blood Glucose 211H Current Medications Medications (Trade) Dose Ordered Sig/Toya Route PRN Reason Start Time Stop Time Status Last Admin Dose Admin Acetaminophen (Tylenol) 500 mg Q4HR PRN ORAL For Pain 07/17/20 00:00 08/16/20 00:00 07/24/20 03:39 Acetaminophen (Tylenol) 500 mg Q8H PRN ORAL FHMP 07/16/20 22:45 08/15/20 22:44 07/26/20 11:41 Albuterol Sulfate (Proventil MDI) 2 puff Q4H PRN INH Shortness of Breath 07/16/20 19:00 10/14/20 18:59 Chlorhexidine Gluconate (Yessi-Hex 2%) 1 applic DAILY@1999 TOPIC 07/21/20 20:00 10/19/20 19:59 07/26/20 20:48 Clonidine HCl (Catapres Tab) 0.1 mg Q4H PRN NG bp over 165 syst 07/21/20 12:00 10/14/20 22:44 Dexamethasone Sodium Phosphate (Decadron 10mg/ ml Inj) 6 mg DAILY IV 07/20/20 12:15 07/29/20 09:01 07/27/20 08:57 Dextrose (Dextrose 50%) 25 ml Q30M PRN IV Hypoglycemia 07/22/20 08:00 10/20/20 07:59 Dextrose (Dextrose 50%) 50 ml Q30M PRN IV Hypoglycemia 07/22/20 08:00 10/20/20 07:59 Docusate Sodium (Colace) 100 mg THREE TIMES A DAY NG 07/21/20 13:00 08/20/20 12:59 07/27/20 08:57 Epoetin Panchito (Epoetin Panchito(ESRD on dialysis)) 4,000 unit THU-THU-THU SUBQ 07/27/20 21:00 10/25/20 20:59 Haloperidol Lactate (Haldol) 5 mg Q6H PRN IM Agitation 07/17/20 17:30 08/31/20 17:29 07/18/20 21:34 Insulin Aspart (NovoLOG) Q6HR SUBQ 07/22/20 08:15 10/20/20 11:29 07/27/20 05:46 Insulin Detemir (Levemir) 12 units Q12HR SUBQ 07/24/20 09:00 10/20/20 09:59 07/27/20 08:59 Lorazepam (Ativan 2mg/ml 1ml) 1 mg Q4H PRN IV For Anxiety 07/20/20 22:15 07/27/20 22:14 07/26/20 09:26 Metoprolol Tartrate (Lopressor) 25 mg EVERY 6 HOURS NG 07/26/20 12:00 10/24/20 11:59 07/27/20 12:19 Pantoprazole (Protonix) 40 mg EVERY 12 HOURS IVP 07/21/20 21:00 08/20/20 20:59 07/27/20 08:57 Piperacillin Sod/ Tazobactam Sod 2.25 gm/Dextrose 55 ml @ 110 mls/hr Q8HR IV 07/24/20 14:00 07/29/20 13:59 07/27/20 05:43 Quetiapine Fumarate (SEROqueL) 50 mg Q12HR ORAL 07/17/20 14:00 08/31/20 13:59 07/27/20 08:57 Assessment/Plan Assessment/Plan Assessment/Plan 1. COVID-19 pneumonia. 2. COPD exacerbation. 3. Pneumonia - CXR shows b/l opacities - she received decadron once which has now been discontinued 4. Hypertensive emergency. - Blood pressure controlled. 5. Leukocytosis.; improving 6. Anemia. 7. Hyponatremia.; resolved 8. Hyperkalemia.; resolved 9. Hypochloridemia.; resolved 10. Hyperglycemia. 11. ESRD, on dialysis. 12. Respiratory failure; now intubated PLAN Continue O2; currently 100% Vent; AC mode On PEEP now 10 S/p HD Rate 16 Steroids Defer Remdesivir choice to ID; renal failure precludes use Levy Law MD, MD Jul 27, 2020 12:53
--- NOTE | 2020-07-27 13:43 | Infectious Diseases Prog Note ---
Assessment/Plan Assessment/Plan IMPRESSION: COVID-19 disease, Altered mental status and encephalopathy, End-stage renal disease on hemodialysis, COPD, Asthma, Hypertension, Pancytopenia, Diabetes mellitus with hyperglycemia, Systolic heart failure, Aortic stenosis. Hypercapnic, hypoxemic respiratory failure RECOMMENDATION: Continue dexamethasone Continue Zosyn We will follow up the cultures. Subjective ROS Limited/Unobtainable: Yes Constitutional: Reports: fever, other - last night Neurologic: Reports: confusion, other - on restraint Allergies: Coded Allergies: No Known Allergies (Unverified , 05/12/17) Objective Last 24 Hour Vital Signs Date Time Temp Pulse Resp B/P (MAP) Pulse Ox O2 Delivery O2 Flow Rate FiO2 07/27/20 12:19 89 127/63 07/27/20 12:00 97 07/27/20 12:00 98 18 127/63 (84) 98 07/27/20 12:00 100 07/27/20 11:30 98 18 100 07/27/20 11:00 92 19 109/47 (67) 98 07/27/20 10:00 92 19 108/46 (66) 98 07/27/20 09:00 98.6 93 19 111/45 (67) 98 07/27/20 08:00 94 07/27/20 08:00 100 07/27/20 08:00 91 16 128/60 (82) 98 07/27/20 07:50 90 17 100 07/27/20 07:00 96 17 145/49 (81) 96 07/27/20 06:00 91 16 136/44 (74) 98 07/27/20 05:44 85 130/51 07/27/20 05:00 97 16 145/50 (81) 97 07/27/20 04:00 97 07/27/20 04:00 100 07/27/20 04:00 99.4 100 16 143/54 (83) 96 07/27/20 03:01 94 20 100 07/27/20 03:00 90 17 115/42 (66) 100 07/27/20 02:00 95 18 131/54 (79) 98 07/27/20 01:00 98 22 133/54 (80) 97 07/27/20 00:00 100 07/27/20 00:00 99.5 102 26 142/57 (85) 99 07/27/20 00:00 91 07/26/20 23:20 90 18 100 07/26/20 23:18 94 128/51 07/26/20 23:00 94 16 128/51 (76) 99 07/26/20 22:00 102 22 125/52 (76) 99 07/26/20 21:00 107 17 146/45 (78) 100 07/26/20 20:00 106 07/26/20 20:00 100 07/26/20 20:00 100.2 105 17 127/53 (77) 100 07/26/20 19:35 115 17 100 07/26/20 19:00 104 20 109/60 (76) 100 07/26/20 18:00 115 19 108/48 (68) 100 07/26/20 17:57 115 113/60 07/26/20 17:00 101.9 125 19 119/45 (69) 100 07/26/20 16:00 100 07/26/20 16:00 129 23 122/46 (71) 100 07/26/20 16:00 144 07/26/20 15:56 106 23 100 07/26/20 15:00 135 23 118/57 (77) 100 07/26/20 14:00 108 26 123/66 (85) 99 Height (Feet): 5 Height (Inches): 4.00 Weight (Pounds): 180 HEENT: mucous membranes moist, other - orally intubated Respiratory/Chest: other - on ventilator Cardiovascular: normal rate Abdomen: soft, non tender Extremities: no edema Neurologic/Psychiatric: unresponsiveness, other - sedated Laboratory Tests Test 07/26/20 16:31 07/26/20 20:45 07/27/20 04:55 07/27/20 05:16 POC Whole Blood Glucose 180 MG/DL (74-106) H 282 MG/DL (74-106) H 211 MG/DL (74-106) H White Blood Count 17.3 K/UL (4.8-10.8) H Red Blood Count 2.53 M/UL (4.20-5.40) L Hemoglobin 8.5 G/DL (12.0-16.0) L Hematocrit 26.7 % (37.0-47.0) L Mean Corpuscular Volume 106 FL (80-99) H Mean Corpuscular Hemoglobin 33.7 PG (27.0-31.0) H Mean Corpuscular Hemoglobin Concent 31.9 G/DL (32.0-36.0) L Red Cell Distribution Width 15.9 % (11.6-14.8) H Platelet Count 189 K/UL (150-450) Mean Platelet Volume 11.2 FL (6.5-10.1) H Neutrophils (%) (Auto) % (45.0-75.0) Lymphocytes (%) (Auto) % (20.0-45.0) Monocytes (%) (Auto) % (1.0-10.0) Eosinophils (%) (Auto) % (0.0-3.0) Basophils (%) (Auto) % (0.0-2.0) Differential Total Cells Counted 100 Neutrophils % (Manual) 92 % (45-75) H Lymphocytes % (Manual) 4 % (20-45) L Monocytes % (Manual) 4 % (1-10) Eosinophils % (Manual) 0 % (0-3) Basophils % (Manual) 0 % (0-2) Band Neutrophils 0 % (0-8) Platelet Estimate Adequate Platelet Morphology Normal Polychromasia 1+ Hypochromasia 1+ Anisocytosis 1+ Sodium Level 142 MMOL/L (136-145) Potassium Level 4.2 MMOL/L (3.5-5.1) Chloride Level 103 MMOL/L (98-107) Carbon Dioxide Level 28 MMOL/L (21-32) Anion Gap 12 mmol/L (5-15) Blood Urea Nitrogen 84 mg/dL (7-18) H Creatinine 4.3 MG/DL (0.55-1.30) H Estimat Glomerular Filtration Rate 10.2 mL/min (>60) Glucose Level 239 MG/DL (74-106) H Uric Acid 4.4 MG/DL (2.6-7.2) Calcium Level 8.9 MG/DL (8.5-10.1) Phosphorus Level 4.7 MG/DL (2.5-4.9) Magnesium Level 2.3 MG/DL (1.8-2.4) Total Bilirubin 1.2 MG/DL (0.2-1.0) H Direct Bilirubin 0.7 MG/DL (0.0-0.3) H Aspartate Amino Transf (AST/SGOT) 52 U/L (15-37) H Alanine Aminotransferase (ALT/SGPT) 23 U/L (12-78) Alkaline Phosphatase 242 U/L (46-116) H C-Reactive Protein, Quantitative 20.0 mg/dL (0.00-0.90) H Total Protein 6.7 G/DL (6.4-8.2) Albumin 2.3 G/DL (3.4-5.0) L Globulin 4.4 g/dL Albumin/Globulin Ratio 0.5 (1.0-2.7) L Current Medications Medications (Trade) Dose Ordered Sig/Toya Route PRN Reason Start Time Stop Time Status Last Admin Dose Admin Acetaminophen (Tylenol) 500 mg Q4HR PRN ORAL For Pain 07/17/20 00:00 08/16/20 00:00 07/24/20 03:39 Acetaminophen (Tylenol) 500 mg Q8H PRN ORAL FHMP 07/16/20 22:45 08/15/20 22:44 07/26/20 11:41 Albuterol Sulfate (Proventil MDI) 2 puff Q4H PRN INH Shortness of Breath 07/16/20 19:00 10/14/20 18:59 Chlorhexidine Gluconate (Yessi-Hex 2%) 1 applic DAILY@1999 TOPIC 07/21/20 20:00 10/19/20 19:59 07/26/20 20:48 Clonidine HCl (Catapres Tab) 0.1 mg Q4H PRN NG bp over 165 syst 07/21/20 12:00 10/14/20 22:44 Dexamethasone Sodium Phosphate (Decadron 10mg/ ml Inj) 6 mg DAILY IV 07/20/20 12:15 07/29/20 09:01 07/27/20 08:57 Dextrose (Dextrose 50%) 25 ml Q30M PRN IV Hypoglycemia 07/22/20 08:00 10/20/20 07:59 Dextrose (Dextrose 50%) 50 ml Q30M PRN IV Hypoglycemia 07/22/20 08:00 10/20/20 07:59 Docusate Sodium (Colace) 100 mg THREE TIMES A DAY NG 07/21/20 13:00 08/20/20 12:59 07/27/20 08:57 Epoetin Panchito (Epoetin Panchito(ESRD on dialysis)) 4,000 unit SUBQ 07/27/20 21:00 10/25/20 20:59 Haloperidol Lactate (Haldol) 5 mg Q6H PRN IM Agitation 07/17/20 17:30 08/31/20 17:29 07/18/20 21:34 Insulin Aspart (NovoLOG) Q6HR SUBQ 07/22/20 08:15 10/20/20 11:29 07/27/20 05:46 Insulin Detemir (Levemir) 12 units Q12HR SUBQ 07/24/20 09:00 10/20/20 09:59 07/27/20 08:59 Lorazepam (Ativan 2mg/ml 1ml) 1 mg Q4H PRN IV For Anxiety 07/20/20 22:15 07/27/20 22:14 07/26/20 09:26 Metoprolol Tartrate (Lopressor) 25 mg EVERY 6 HOURS NG 07/26/20 12:00 10/24/20 11:59 07/27/20 12:19 Pantoprazole (Protonix) 40 mg EVERY 12 HOURS IVP 07/21/20 21:00 08/20/20 20:59 07/27/20 08:57 Piperacillin Sod/ Tazobactam Sod 2.25 gm/Dextrose 55 ml @ 110 mls/hr Q8HR IV 07/24/20 14:00 07/29/20 13:59 07/27/20 05:43 Quetiapine Fumarate (SEROqueL) 50 mg Q12HR ORAL 07/17/20 14:00 08/31/20 13:59 07/27/20 08:57 Kalin Briseno MD Jul 27, 2020 13:43
--- NOTE | 2020-07-27 13:58 | Nephrology Progress Note ---
Assessment/Plan Problem List: (1) Hypertensive kidney disease (2) ESRD (end stage renal disease) (3) Hyperkalemia (4) Suspected 2019 novel coronavirus infection (5) Acute respiratory failure Assessment 70-year-old female with end-stage renal disease Presented with volume overload and hyperkalemia Suspected COVID-19 virus infection Hypertensive emergency Diabetes mellitus CHF Plan July 27: Patient dialyzed July 26. Labs reviewed. Status quo. Dialysis again in a.m. July 26: Patient was dialyzed this morning. Labs reviewed. Remains intubated on ventilator. Full code. Tachycardic. Continue per consultants. Per orders. July 25: Patient was dialyzed yesterday. 2 L ultrafiltrate it. Discussed with fruit peeler today. Attempts at weaning is being tried. Patient will be dialyzed again tomorrow. In view of ejection fraction of 40 to 45% and low blood pressure will adjust the blood pressure medication dosages and give 0.25 mg digoxin IV once. Continue to monitor renal parameters. July 24: Due for dialysis today. Labs reviewed. Low phosphorus replaced. Continue pulmonary support and ID management. Medication list reviewed. BP medication adjusted. July 23: Dialyzed yesterday. Labs reviewed. ABG noted. Patient hypoxic. Vent setting adjusted by fruit peeler. Continue current care. Dialysis tomorrow. July 22: Patient on ventilator requiring positive end expiratory pressure. Labs reviewed. Blood sugar elevated. Levemir insulin ordered. Dialysis today. Continue per consultants. July 21: Patient now in ICU. Intubated on ventilator. Was dialyzed. Blood pressure well maintained. Has NG tube. Will start medication through NG tube and start feeding. Continue per consultants. Hemodialysis as needed. July 20: Patient seen and examined. Discussed with RN. Remains encephalopathic. Poor ABG results. Patient at high risk at this stage. We will transfer patients to ICU for possible airway support. Patient due for dialysis today. Hyperkalemia probably secondary to acidosis. Will arrange for NG tube insertion and give medication through NG tube. July 19: Mental status appears slightly improved. Was dialyzed 2 days in a row. Blood pressure medication adjusted. Next dialysis tomorrow. Continue per consultants. July 18: Patient encephalopathic, was dialyzed yesterday and had 3 L removed. Will order dialysis again today. Continue per ID. Blood pressure medication adjusted. July 17: Stat hemodialysis ordered. Kayexalate for high potassium. Pulmonary support with oxygen or BiPAP as needed Blood pressure support with proper parameters Per orders Subjective ROS Limited/Unobtainable: Yes Objective Objective Last 24 Hour Vital Signs Date Time Temp Pulse Resp B/P (MAP) Pulse Ox O2 Delivery O2 Flow Rate FiO2 07/27/20 12:19 89 127/63 07/27/20 12:00 97 07/27/20 12:00 98 18 127/63 (84) 98 07/27/20 12:00 100 07/27/20 11:30 98 18 100 07/27/20 11:00 92 19 109/47 (67) 98 07/27/20 10:00 92 19 108/46 (66) 98 07/27/20 09:00 98.6 93 19 111/45 (67) 98 07/27/20 08:00 94 07/27/20 08:00 100 07/27/20 08:00 91 16 128/60 (82) 98 07/27/20 07:50 90 17 100 07/27/20 07:00 96 17 145/49 (81) 96 07/27/20 06:00 91 16 136/44 (74) 98 07/27/20 05:44 85 130/51 07/27/20 05:00 97 16 145/50 (81) 97 07/27/20 04:00 97 07/27/20 04:00 100 07/27/20 04:00 99.4 100 16 143/54 (83) 96 07/27/20 03:01 94 20 100 07/27/20 03:00 90 17 115/42 (66) 100 07/27/20 02:00 95 18 131/54 (79) 98 07/27/20 01:00 98 22 133/54 (80) 97 07/27/20 00:00 100 07/27/20 00:00 99.5 102 26 142/57 (85) 99 07/27/20 00:00 91 07/26/20 23:20 90 18 100 07/26/20 23:18 94 128/51 07/26/20 23:00 94 16 128/51 (76) 99 07/26/20 22:00 102 22 125/52 (76) 99 07/26/20 21:00 107 17 146/45 (78) 100 07/26/20 20:00 106 07/26/20 20:00 100 07/26/20 20:00 100.2 105 17 127/53 (77) 100 07/26/20 19:35 115 17 100 07/26/20 19:00 104 20 109/60 (76) 100 07/26/20 18:00 115 19 108/48 (68) 100 07/26/20 17:57 115 113/60 07/26/20 17:00 101.9 125 19 119/45 (69) 100 07/26/20 16:00 100 07/26/20 16:00 129 23 122/46 (71) 100 07/26/20 16:00 144 07/26/20 15:56 106 23 100 07/26/20 15:00 135 23 118/57 (77) 100 07/26/20 14:00 108 26 123/66 (85) 99 Intake and Output 07/26/20 07/27/20 19:00 07:00 Intake Total 595 ml 415 ml Balance 595 ml 415 ml Free Water 180 ml IV Total 55 ml 55 ml Tube Feeding 360 ml 360 ml # Bowel Movements 1 1 Laboratory Tests 07/26/20 16:31: POC Whole Blood Glucose 180H 07/26/20 20:45: POC Whole Blood Glucose 282H 07/27/20 04:55: White Blood Count 17.3H, Red Blood Count 2.53L, Hemoglobin 8.5L, Hematocrit 26.7L, Mean Corpuscular Volume 106H, Mean Corpuscular Hemoglobin 33.7H, Mean Corpuscular Hemoglobin Concent 31.9L, Red Cell Distribution Width 15.9H, Platelet Count 189, Mean Platelet Volume 11.2H, Neutrophils (%) (Auto) , Lymphocytes (%) (Auto) , Monocytes (%) (Auto) , Eosinophils (%) (Auto) , Basophils (%) (Auto) , Differential Total Cells Counted 100, Neutrophils % (Manual) 92H, Lymphocytes % (Manual) 4L, Monocytes % (Manual) 4, Eosinophils % (Manual) 0, Basophils % (Manual) 0, Band Neutrophils 0, Platelet Estimate Adequate, Platelet Morphology Normal, Polychromasia 1+, Hypochromasia 1+, Anisocytosis 1+, Sodium Level 142, Potassium Level 4.2, Chloride Level 103, Carbon Dioxide Level 28, Anion Gap 12, Blood Urea Nitrogen 84H, Creatinine 4.3H, Estimat Glomerular Filtration Rate 10.2, Glucose Level 239H, Uric Acid 4.4, Calcium Level 8.9, Phosphorus Level 4.7, Magnesium Level 2.3, Total Bilirubin 1.2H, Direct Bilirubin 0.7H, Aspartate Amino Transf (AST/SGOT) 52H, Alanine Aminotransferase (ALT/SGPT) 23, Alkaline Phosphatase 242H, C-Reactive Protein, Quantitative 20.0H, Total Protein 6.7, Albumin 2.3L, Globulin 4.4, Albumin/Globulin Ratio 0.5L 07/27/20 05:16: POC Whole Blood Glucose 211H Height (Feet): 5 Height (Inches): 4.00 Weight (Pounds): 180 General Appearance: no apparent distress EENT: other - Intubated on ventilator Cardiovascular: tachycardia Respiratory/Chest: decreased breath sounds Abdomen: distended Francis Falk MD Jul 27, 2020 13:58
--- NOTE | 2020-07-27 16:37 | General Progress Note ---
Subjective Allergies: Coded Allergies: No Known Allergies (Unverified , 05/12/17) Subjective above noted Tolerating TF no GI bleeding Objective Last 24 Hour Vital Signs Date Time Temp Pulse Resp B/P (MAP) Pulse Ox O2 Delivery O2 Flow Rate FiO2 07/27/20 15:00 106 26 126/49 (74) 97 07/27/20 14:35 98 18 100 07/27/20 14:00 98.2 113 18 120/47 (71) 97 07/27/20 13:00 106 18 124/59 (80) 97 07/27/20 12:19 89 127/63 07/27/20 12:00 97 07/27/20 12:00 98 18 127/63 (84) 98 07/27/20 12:00 100 07/27/20 11:30 98 18 100 07/27/20 11:00 92 19 109/47 (67) 98 07/27/20 10:00 92 19 108/46 (66) 98 07/27/20 09:00 98.6 93 19 111/45 (67) 98 07/27/20 08:00 94 07/27/20 08:00 100 07/27/20 08:00 91 16 128/60 (82) 98 07/27/20 07:50 90 17 100 07/27/20 07:00 96 17 145/49 (81) 96 07/27/20 06:00 91 16 136/44 (74) 98 07/27/20 05:44 85 130/51 07/27/20 05:00 97 16 145/50 (81) 97 07/27/20 04:00 97 07/27/20 04:00 100 07/27/20 04:00 99.4 100 16 143/54 (83) 96 07/27/20 03:01 94 20 100 07/27/20 03:00 90 17 115/42 (66) 100 07/27/20 02:00 95 18 131/54 (79) 98 07/27/20 01:00 98 22 133/54 (80) 97 07/27/20 00:00 100 07/27/20 00:00 99.5 102 26 142/57 (85) 99 07/27/20 00:00 91 07/26/20 23:20 90 18 100 07/26/20 23:18 94 128/51 07/26/20 23:00 94 16 128/51 (76) 99 07/26/20 22:00 102 22 125/52 (76) 99 07/26/20 21:00 107 17 146/45 (78) 100 07/26/20 20:00 106 07/26/20 20:00 100 07/26/20 20:00 100.2 105 17 127/53 (77) 100 07/26/20 19:35 115 17 100 07/26/20 19:00 104 20 109/60 (76) 100 07/26/20 18:00 115 19 108/48 (68) 100 07/26/20 17:57 115 113/60 07/26/20 17:00 101.9 125 19 119/45 (69) 100 Intake and Output 07/26/20 07/27/20 19:00 07:00 Intake Total 595 ml 415 ml Balance 595 ml 415 ml Free Water 180 ml IV Total 55 ml 55 ml Tube Feeding 360 ml 360 ml # Bowel Movements 1 1 Laboratory Tests 07/26/20 20:45: POC Whole Blood Glucose 282H 07/27/20 04:55: White Blood Count 17.3H, Red Blood Count 2.53L, Hemoglobin 8.5L, Hematocrit 26.7L, Mean Corpuscular Volume 106H, Mean Corpuscular Hemoglobin 33.7H, Mean Corpuscular Hemoglobin Concent 31.9L, Red Cell Distribution Width 15.9H, Андрей telet Count 189, Mean Platelet Volume 11.2H, Neutrophils (%) (Auto) , Lymphocytes (%) (Auto) , Monocytes (%) (Auto) , Eosinophils (%) (Auto) , Basophils (%) (Auto) , Differential Total Cells Counted 100, Neutrophils % (Manual) 92H, Lymphocytes % (Manual) 4L, Monocytes % (Manual) 4, Eosinophils % (Manual) 0, Basophils % (Manual) 0, Band Neutrophils 0, Platelet Estimate Adequate, Platelet Morphology Normal, Polychromasia 1+, Hypochromasia 1+, Anis ocytosis 1+, Sodium Level 142, Potassium Level 4.2, Chloride Level 103, Carbon Dioxide Level 28, Anion Gap 12, Blood Urea Nitrogen 84H, Creatinine 4.3H, Estimat Glomerular Filtration Rate 10.2, Glucose Level 239H, Uric Acid 4.4, Calcium Level 8.9, Phosphorus Level 4.7, Magnesium Level 2.3, Total Bilirubin 1.2H, Direct Bilirubin 0.7H, Aspartate Amino Transf (AST/SGOT) 52H, Alanine Ami notransferase (ALT/SGPT) 23, Alkaline Phosphatase 242H, C-Reactive Protein, Quantitative 20.0H, Total Protein 6.7, Albumin 2.3L, Globulin 4.4, Albumin/Globulin Ratio 0.5L 07/27/20 05:16: POC Whole Blood Glucose 211H Height (Feet): 5 Height (Inches): 4.00 Weight (Pounds): 180 Objective Eledely woman on vent NCAT coarse BS RR abd soft no edema Assessment/Plan Status: deteriorating Assessment/Plan: Assessment - Recurrent GI bleed - anemia - s/p multiple endoscopies and colonoscopies this year - resp failure - COPD - COVID PNA - abnormal LFT - presumed COVID related - DM - Poor Px Recommendations - PPI BID - Tube feeds - follow labs - HD - PRN transfusion - No plans for endoscopy per discussion with family Ramakrishna Leonard MD Jul 27, 2020 16:37
--- NOTE | 2020-07-27 17:12 | NUR ---
1700 pt,seen by rashid campbell bedside report given nonew orders
[2020-07-27] MEDS ORDERED: Epoetin Alfa-EPBX(ESRD on dialysis)4000 units/ml vial SUBQ SCH (21:00)
[2020-07-27] MEDS: Dyna-Hex 2% Top Sol 2oz TOPIC SCH (21:30)
--- NOTE | 2020-07-27 21:40 | NUR ---
NURSE NOTES: pt remains unchanged. pt appears alert and oriented times 1, opens eyes to light tactile stimuli , no change in mentation. pt remains oral intubated, and vented, pt sating 99% O2. no other resp distress noted. pt is on monitor and storage bin tender showing ST 103, no abnormalities to cardiac rhythm. pt bed low, locked, armed, call light within reach, bed rails up times 3. will progress with plan of care.
--- NOTE | 2020-07-27 22:51 | General Progress Note ---
Subjective ROS Limited/Unobtainable: Yes Allergies: Coded Allergies: No Known Allergies (Unverified , 05/12/17) Objective Last 24 Hour Vital Signs Date Time Temp Pulse Resp B/P (MAP) Pulse Ox O2 Delivery O2 Flow Rate FiO2 07/27/20 22:00 108 21 113/49 (70) 07/27/20 21:00 117 21 128/57 (80) 07/27/20 20:00 102 07/27/20 20:00 118 24 126/47 (73) 100 07/27/20 20:00 100 07/27/20 19:39 109 23 100 07/27/20 19:00 114 24 116/38 (64) 100 07/27/20 18:00 114 19 128/45 (72) 100 07/27/20 17:40 126 122/46 07/27/20 17:00 117 20 112/45 (67) 100 07/27/20 16:00 98 17 85/31 (49) 99 07/27/20 16:00 100 07/27/20 16:00 99 07/27/20 15:00 106 26 126/49 (74) 97 07/27/20 14:35 98 18 100 07/27/20 14:00 98.2 113 18 120/47 (71) 97 07/27/20 13:00 106 18 124/59 (80) 97 07/27/20 12:19 89 127/63 07/27/20 12:00 97 07/27/20 12:00 98 18 127/63 (84) 98 07/27/20 12:00 100 07/27/20 11:30 98 18 100 07/27/20 11:00 92 19 109/47 (67) 98 07/27/20 10:00 92 19 108/46 (66) 98 07/27/20 09:00 98.6 93 19 111/45 (67) 98 07/27/20 08:00 94 07/27/20 08:00 100 07/27/20 08:00 91 16 128/60 (82) 98 07/27/20 07:50 90 17 100 07/27/20 07:00 96 17 145/49 (81) 96 07/27/20 06:00 91 16 136/44 (74) 98 07/27/20 05:44 85 130/51 07/27/20 05:00 97 16 145/50 (81) 97 07/27/20 04:00 97 07/27/20 04:00 100 07/27/20 04:00 99.4 100 16 143/54 (83) 96 07/27/20 03:01 94 20 100 07/27/20 03:00 90 17 115/42 (66) 100 07/27/20 02:00 95 18 131/54 (79) 98 07/27/20 01:00 98 22 133/54 (80) 97 07/27/20 00:00 100 07/27/20 00:00 99.5 102 26 142/57 (85) 99 07/27/20 00:00 91 07/26/20 23:20 90 18 100 07/26/20 23:18 94 128/51 07/26/20 23:00 94 16 128/51 (76) 99 Intake and Output 07/26/20 07/27/20 19:00 07:00 Intake Total 595 ml 415 ml Balance 595 ml 415 ml Free Water 180 ml IV Total 55 ml 55 ml Tube Feeding 360 ml 360 ml # Bowel Movements 1 1 Laboratory Tests 07/27/20 04:55: White Blood Count 17.3H, Red Blood Count 2.53L, Hemoglobin 8.5L, Hematocrit 26.7L, Mean Corpuscular Volume 106H, Mean Corpuscular Hemoglobin 33.7H, Mean Corpuscular Hemoglobin Concent 31.9L, Red Cell Distribution Width 15.9H, Platelet Count 189, Mean Platelet Volume 11.2H, Neutrophils (%) (Auto) , Lymphocytes (%) (Auto) , Monocytes (%) (Auto) , Eosinophils (%) (Auto) , Basophils (%) (Auto) , Differential Total Cells Counted 100, Neutrophils % (Manual) 92H, Lymphocytes % (Manual) 4L, Monocytes % (Manual) 4, Eosinophils % (Manual) 0, Basophils % (Manual) 0, Band Neutrophils 0, Platelet Estimate Adequate, Platelet Morphology Normal, Polychromasia 1+, Hypochromasia 1+, Anisocytosis 1+, Sodium Level 142, Potassium Level 4.2, Chloride Level 103, Carbon Dioxide Level 28, Anion Gap 12, Blood Urea Nitrogen 84H, Creatinine 4.3H, Estimat Glomerular Filtration Rate 10.2, Glucose Level 239H, Uric Acid 4.4, Calcium Level 8.9, Phosphorus Level 4.7, Magnesium Level 2.3, Total Bilirubin 1.2H, Direct Bilirubin 0.7H, Aspartate Amino Transf (AST/SGOT) 52H, Alanine Aminotransferase (ALT/SGPT) 23, Alkaline Phosphatase 242H, C-Reactive Protein, Quantitative 20.0H, Total Protein 6.7, Albumin 2.3L, Globulin 4.4, Albumin/Globulin Ratio 0.5L 07/27/20 05:16: POC Whole Blood Glucose 211H Height (Feet): 5 Height (Inches): 4.00 Weight (Pounds): 180 Assessment/Plan Problem List: (1) Pneumonia ICD Codes: J18.9 - Pneumonia, unspecified organism SNOMED: 415764665 (2) Hypertension ICD Codes: I10 - Essential (primary) hypertension SNOMED: 14438958 (3) Renal failure ICD Codes: N19 - Unspecified kidney failure SNOMED: 65557677 (4) Anemia in chronic kidney disease (CKD) ICD Codes: N18.9 - Chronic kidney disease, unspecified; D63.1 - Anemia in chronic kidney disease SNOMED: 268647302 (5) weakness (6) ESRD (end stage renal disease) ICD Codes: N18.6 - End stage renal disease SNOMED: 62227346 (7) Diabetic nephropathy with proteinuria ICD Codes: E11.21 - Type 2 diabetes mellitus with diabetic nephropathy SNOMED: 59777868, 101489572 Status: progressing, deteriorating Assessment/Plan: no change on full support poor prognosis not improving copd niddm htn esrd on hd resp failure niddm covid positive pna Makenna Daniel MD Jul 27, 2020 22:51
--- NOTE | 2020-07-27 23:40 | NUR ---
NURSE NOTES: assessed pts blood sugar. pts finger stick blood sugar known to be 235. insulin given for coverage.
[2020-07-28] VITALS (24 sets, daily range): BP systolic 94–137; BP diastolic 41–64
--- NOTE | 2020-07-28 02:30 | NUR ---
NURSE NOTES: pts pulse Oximeter changed. vital signs stable. pt sating 100 % O2.
--- NOTE | 2020-07-28 04:40 | NUR ---
NURSE NOTES: pt pulse ox changed. vital signs stable. no fever noted. vent settings as per doctor order.
[2020-07-28] MEDS: Piperacillin/Tazobactam 2.25 GM in D5W 55 ML IV SCH ×2 (05:52→17:23)
[2020-07-28] MEDS: NovoLOG Insulin Flexpen SUBQ SCH ×3 (05:56→18:02)
--- NOTE | 2020-07-28 06:15 | NUR ---
NURSE NOTES: am meds passed. BS noted to be 192. insulin given per sliding scale.
[2020-07-28 06:18] LABS: ALANINE AMINOTRANSFERASE 15 U/L (12-78); ALBUMIN/GLOBULIN RATIO 0.5 (1.0-2.7); ALKALINE PHOSPHATASE 236 U/L (46-116); ANION GAP 10 mmol/L (5-15); ASPARTATE AMINO TRANSFERASE 20 U/L (15-37); BILIRUBIN,TOTAL 0.9 MG/DL (0.2-1.0); BLOOD UREA NITROGEN 114 mg/dL (7-18); CALCIUM 8.3 MG/DL (8.5-10.1); CARBON DIOXIDE 29 MMOL/L (21-32); CHLORIDE 104 MMOL/L (98-107); CREATININE 5.7 MG/DL (0.55-1.30); POTASSIUM 4.2 MMOL/L (3.5-5.1); SODIUM 143 MMOL/L (136-145)
[2020-07-28 06:24] LABS: HEMATOCRIT 21.4 % (37.0-47.0); MEAN CORPUSCULAR VOLUME 103 FL (80-99); PLATELET COUNT 171 K/UL (150-450); RED BLOOD COUNT 2.08 M/UL (4.20-5.40); RED CELL DISTRIBUTION WIDTH 15.5 % (11.6-14.8); WHITE BLOOD COUNT 12.3 K/UL (4.8-10.8)
--- NOTE | 2020-07-28 07:39 | NUR ---
NURSE HAND-OFF REPORT: Latest Vital Signs: Temperature 98.5 , Pulse 99 , B/P 121 /55 , Respiratory Rate 22 , O2 SAT 99 , Nasal Cannula, O2 Flow Rate 3.0 . Vital Sign Comment: [Stable] EKG Rhythm: Atrial Fibrillation Rhythm change?: N MD Notified?: Roxanne -Dr. En CROFT Response: Latest Elizabeth Fall Score: 50 Fall Risk: High Risk Safety Measures: Call light Within Reach, Bed Alarm Zone 1, Side Rails Side Rails x2, Bed position Low and Locked. Fall Precautions: Door Sign Report given to [BARB Henson RN].
--- NOTE | 2020-07-28 08:30 | NUR ---
NURSE NOTES: Report received from SIDNEY Mcclellan. Patient is disoriented in bed with restraints on bilateral arms. she is weak when arms are assessed around the wrist, she is on cooling blanket no in use, patient is noted to be afebrile with no temperature. ventilator setting is AC 16, TV: 500, FIo2 100% and peep of 5, she is running tube feeding on Nepro through OG-tube, left upper arms av shunt noted to have a bruit and thrill present.
--- NOTE | 2020-07-28 09:07 | Infectious Diseases Prog Note ---
Assessment/Plan Assessment/Plan IMPRESSION: COVID-19 disease, Altered mental status and encephalopathy, End-stage renal disease on hemodialysis, COPD, Asthma, Hypertension, Pancytopenia, Diabetes mellitus with hyperglycemia, Systolic heart failure, Aortic stenosis. Hypercapnic, hypoxemic respiratory failure RECOMMENDATION: Continue dexamethasone Continue Zosyn We will follow up the cultures. Subjective ROS Limited/Unobtainable: Yes Constitutional: Reports: other - no fever today Neurologic: Reports: confusion, other - on restraint Allergies: Coded Allergies: No Known Allergies (Unverified , 05/12/17) Objective Last 24 Hour Vital Signs Date Time Temp Pulse Resp B/P (MAP) Pulse Ox O2 Delivery O2 Flow Rate FiO2 07/28/20 07:00 99 22 121/55 (77) 99 07/28/20 06:00 103 19 117/47 (70) 98 07/28/20 05:53 111 130/48 07/28/20 05:00 109 19 127/51 (76) 99 07/28/20 04:00 100 07/28/20 04:00 98.5 98 14 104/63 (77) 99 07/28/20 04:00 94 07/28/20 03:00 99 18 111/43 (65) 100 07/28/20 02:00 102 20 113/62 (79) 100 07/28/20 01:00 102 19 112/49 (70) 100 07/28/20 00:00 106 07/28/20 00:00 100 07/28/20 00:00 98.0 102 20 123/45 (71) 100 07/27/20 23:12 108 115/50 07/27/20 23:00 109 20 115/50 (71) 99 07/27/20 22:53 116 27 100 07/27/20 22:00 108 21 113/49 (70) 07/27/20 21:00 117 21 128/57 (80) 07/27/20 20:00 102 07/27/20 20:00 118 24 126/47 (73) 100 07/27/20 20:00 100 07/27/20 19:39 109 23 100 07/27/20 19:00 114 24 116/38 (64) 100 07/27/20 18:00 114 19 128/45 (72) 100 07/27/20 17:40 126 122/46 07/27/20 17:00 117 20 112/45 (67) 100 07/27/20 16:00 98 17 85/31 (49) 99 07/27/20 16:00 100 07/27/20 16:00 99 07/27/20 15:00 106 26 126/49 (74) 97 07/27/20 14:35 98 18 100 07/27/20 14:00 98.2 113 18 120/47 (71) 97 07/27/20 13:00 106 18 124/59 (80) 97 07/27/20 12:19 89 127/63 07/27/20 12:00 97 07/27/20 12:00 98 18 127/63 (84) 98 07/27/20 12:00 100 07/27/20 11:30 98 18 100 07/27/20 11:00 92 19 109/47 (67) 98 07/27/20 10:00 92 19 108/46 (66) 98 Height (Feet): 5 Height (Inches): 4.00 Weight (Pounds): 180 HEENT: other - orally intubated Respiratory/Chest: other - on ventilator Cardiovascular: tachycardia, other - Left arm AV graft Abdomen: soft, non tender Extremities: no edema Neurologic/Psychiatric: disoriented Laboratory Tests Test 07/28/20 04:15 White Blood Count 12.3 K/UL (4.8-10.8) H Red Blood Count 2.08 M/UL (4.20-5.40) L Hemoglobin 7.0 G/DL (12.0-16.0) L Hematocrit 21.4 % (37.0-47.0) L Mean Corpuscular Volume 103 FL (80-99) H Mean Corpuscular Hemoglobin 33.9 PG (27.0-31.0) H Mean Corpuscular Hemoglobin Concent 32.9 G/DL (32.0-36.0) Red Cell Distribution Width 15.5 % (11.6-14.8) H Platelet Count 171 K/UL (150-450) Mean Platelet Volume 8.7 FL (6.5-10.1) Neutrophils (%) (Auto) % (45.0-75.0) Lymphocytes (%) (Auto) % (20.0-45.0) Monocytes (%) (Auto) % (1.0-10.0) Eosinophils (%) (Auto) % (0.0-3.0) Basophils (%) (Auto) % (0.0-2.0) Differential Total Cells Counted 100 Neutrophils % (Manual) 93 % (45-75) H Lymphocytes % (Manual) 3 % (20-45) L Monocytes % (Manual) 4 % (1-10) Eosinophils % (Manual) 0 % (0-3) Basophils % (Manual) 0 % (0-2) Band Neutrophils 0 % (0-8) Platelet Estimate Adequate Platelet Morphology Normal Polychromasia 1+ Hypochromasia 1+ Anisocytosis 1+ Macrocytosis 1+ Sodium Level 143 MMOL/L (136-145) Potassium Level 4.2 MMOL/L (3.5-5.1) Chloride Level 104 MMOL/L (98-107) Carbon Dioxide Level 29 MMOL/L (21-32) Anion Gap 10 mmol/L (5-15) Blood Urea Nitrogen 114 mg/dL (7-18) H Creatinine 5.7 MG/DL (0.55-1.30) H Estimat Glomerular Filtration Rate 7.3 mL/min (>60) Glucose Level 202 MG/DL (74-106) H Calcium Level 8.3 MG/DL (8.5-10.1) L Phosphorus Level 5.0 MG/DL (2.5-4.9) H Magnesium Level 2.3 MG/DL (1.8-2.4) Total Bilirubin 0.9 MG/DL (0.2-1.0) Aspartate Amino Transf (AST/SGOT) 20 U/L (15-37) Alanine Aminotransferase (ALT/SGPT) 15 U/L (12-78) Alkaline Phosphatase 236 U/L (46-116) H C-Reactive Protein, Quantitative 21.1 mg/dL (0.00-0.90) H Pro-B-Type Natriuretic Peptide > 63335 pg/mL (0-125) H Total Protein 6.1 G/DL (6.4-8.2) L Albumin 2.0 G/DL (3.4-5.0) L Globulin 4.1 g/dL Albumin/Globulin Ratio 0.5 (1.0-2.7) L Current Medications Medications (Trade) Dose Ordered Sig/Toya Route PRN Reason Start Time Stop Time Status Last Admin Dose Admin Acetaminophen (Tylenol) 500 mg Q4HR PRN ORAL For Pain 07/17/20 00:00 08/16/20 00:00 07/24/20 03:39 Acetaminophen (Tylenol) 500 mg Q8H PRN ORAL FHMP 07/16/20 22:45 08/15/20 22:44 07/26/20 11:41 Albuterol Sulfate (Proventil MDI) 2 puff Q4H PRN INH Shortness of Breath 07/16/20 19:00 10/14/20 18:59 Chlorhexidine Gluconate (Yessi-Hex 2%) 1 applic DAILY@2000 TOPIC 07/21/20 20:00 10/19/20 19:59 07/27/20 21:30 Clonidine HCl (Catapres Tab) 0.1 mg Q4H PRN NG bp over 165 syst 07/21/20 12:00 10/14/20 22:44 Dexamethasone Sodium Phosphate (Decadron 10mg/ ml Inj) 6 mg DAILY IV 07/20/20 12:15 07/29/20 09:01 07/27/20 08:57 Dextrose (Dextrose 50%) 25 ml Q30M PRN IV Hypoglycemia 07/22/20 08:00 10/20/20 07:59 Dextrose (Dextrose 50%) 50 ml Q30M PRN IV Hypoglycemia 07/22/20 08:00 10/20/20 07:59 Docusate Sodium (Colace) 100 mg THREE TIMES A DAY NG 07/21/20 13:00 08/20/20 12:59 07/27/20 17:39 Epoetin Panchito (Epoetin Panchito(ESRD on dialysis)) 4,000 unit THU-THU-THU SUBQ 07/27/20 21:00 10/25/20 20:59 07/27/20 21:35 Haloperidol Lactate (Haldol) 5 mg Q6H PRN IM Agitation 07/17/20 17:30 08/31/20 17:29 07/18/20 21:34 Insulin Aspart (NovoLOG) Q6HR SUBQ 07/22/20 08:15 10/20/20 11:29 07/28/20 05:56 Insulin Detemir (Levemir) 12 units Q12HR SUBQ 07/24/20 09:00 10/20/20 09:59 07/27/20 21:34 Metoprolol Tartrate (Lopressor) 25 mg EVERY 6 HOURS NG 07/26/20 12:00 10/24/20 11:59 07/28/20 05:53 Pantoprazole (Protonix) 40 mg EVERY 12 HOURS IVP 07/21/20 21:00 08/20/20 20:59 07/27/20 21:31 Piperacillin Sod/ Tazobactam Sod 2.25 gm/Dextrose 55 ml @ 110 mls/hr Q8HR IV 07/24/20 14:00 07/29/20 13:59 07/28/20 05:52 Quetiapine Fumarate (SEROqueL) 50 mg Q12HR ORAL 07/17/20 14:00 08/31/20 13:59 07/27/20 21:31 Kalin Briseno MD Jul 28, 2020 09:07
[2020-07-28] MEDS: Docusate 100mg/10ml Liq NG SCH ×3 (09:09→17:17)
[2020-07-28] MEDS: Pantoprazole Inj IVP SCH ×2 (09:09→20:14)
[2020-07-28] MEDS: dexAMETHasone 10mg/ml Inj IV SCH (09:09)
[2020-07-28] MEDS: Levemir Flexpen SUBQ SCH ×2 (09:28→20:58)
--- NOTE | 2020-07-28 10:22 | General Progress Note ---
Subjective ROS Limited/Unobtainable: No Allergies: Coded Allergies: No Known Allergies (Unverified , 05/12/17) Objective Last 24 Hour Vital Signs Date Time Temp Pulse Resp B/P (MAP) Pulse Ox O2 Delivery O2 Flow Rate FiO2 07/28/20 09:00 95 19 94/44 (61) 99 07/28/20 08:00 98.8 99 18 108/48 (68) 99 07/28/20 08:00 100 07/28/20 08:00 102 07/28/20 07:00 99 22 121/55 (77) 99 07/28/20 06:00 103 19 117/47 (70) 98 07/28/20 05:53 111 130/48 07/28/20 05:00 109 19 127/51 (76) 99 07/28/20 04:00 100 07/28/20 04:00 98.5 98 14 104/63 (77) 99 07/28/20 04:00 94 07/28/20 03:00 99 18 111/43 (65) 100 07/28/20 02:00 102 20 113/62 (79) 100 07/28/20 01:00 102 19 112/49 (70) 100 07/28/20 00:00 106 07/28/20 00:00 100 07/28/20 00:00 98.0 102 20 123/45 (71) 100 07/27/20 23:12 108 115/50 07/27/20 23:00 109 20 115/50 (71) 99 07/27/20 22:53 116 27 100 07/27/20 22:00 108 21 113/49 (70) 07/27/20 21:00 117 21 128/57 (80) 07/27/20 20:00 102 07/27/20 20:00 118 24 126/47 (73) 100 07/27/20 20:00 100 07/27/20 19:39 109 23 100 07/27/20 19:00 114 24 116/38 (64) 100 07/27/20 18:00 114 19 128/45 (72) 100 07/27/20 17:40 126 122/46 07/27/20 17:00 117 20 112/45 (67) 100 07/27/20 16:00 98 17 85/31 (49) 99 07/27/20 16:00 100 07/27/20 16:00 99 07/27/20 15:00 106 26 126/49 (74) 97 07/27/20 14:35 98 18 100 07/27/20 14:00 98.2 113 18 120/47 (71) 97 07/27/20 13:00 106 18 124/59 (80) 97 07/27/20 12:19 89 127/63 07/27/20 12:00 97 07/27/20 12:00 98 18 127/63 (84) 98 07/27/20 12:00 100 07/27/20 11:30 98 18 100 07/27/20 11:00 92 19 109/47 (67) 98 Intake and Output 07/27/20 07/28/20 19:00 07:00 Intake Total 565 ml 415 ml Balance 565 ml 415 ml Free Water 150 ml IV Total 55 ml 55 ml Tube Feeding 360 ml 360 ml # Bowel Movements 1 Laboratory Tests 07/28/20 04:15: White Blood Count 12.3H, Red Blood Count 2.08L, Hemoglobin 7.0L, Hematocrit 21.4L, Mean Corpuscular Volume 103H, Mean Corpuscular Hemoglobin 33.9H, Mean Corpuscular Hemoglobin Concent 32.9, Red Cell Distribution Width 15.5H, Platelet Count 171, Mean Platelet Volume 8.7, Neutrophils (%) (Auto) , Lymphocytes (%) (Auto) , Monocytes (%) (Auto) , Eosinophils (%) (Auto) , Basophils (%) (Auto) , Differential Total Cells Counted 100, Neutrophils % (Manual) 93H, Lymphocytes % (Manual) 3L, Monocytes % (Manual) 4, Eosinophils % (Manual) 0, Basophils % (Manual) 0, Band Neutrophils 0, Platelet Estimate Adequate, Platelet Morphology Normal, Polychromasia 1+, Hypochromasia 1+, Anisocytosis 1+, Macrocytosis 1+, Sodium Level 143, Potassium Level 4.2, Chloride Level 104, Carbon Dioxide Level 29, Anion Gap 10, Blood Urea Nitrogen 114H, Creatinine 5.7H, Estimat Glomerular Filtration Rate 7.3, Glucose Level 202H, Calcium Level 8.3L, Phosphorus Level 5.0H, Magnesium Level 2.3, Total Bilirubin 0.9, Aspartate Amino Transf (AST/SGOT) 20, Alanine Aminotransferase (ALT/SGPT) 15, Alkaline Phosphatase 236H , C-Reactive Protein, Quantitative 21.1H, Pro-B-Type Natriuretic Peptide > 04508U, Total Protein 6.1L, Albumin 2.0L, Globulin 4.1, Albumin/Globulin Ratio 0.5L 07/28/20 05:52: POC Whole Blood Glucose [Pending] Height (Feet): 5 Height (Inches): 4.00 Weight (Pounds): 180 General Appearance: lethargic EENT: normal ENT inspection Neck: supple Cardiovascular: tachycardia Respiratory/Chest: decreased breath sounds Abdomen: hypoactive bowel sounds Extremities: non-tender Assessment/Plan Status: progressing, deteriorating Assessment/Plan: Assessment/Plan Status: deteriorating Assessment/Plan: Assessment - Recurrent GI bleed - anemia - s/p multiple endoscopies and colonoscopies this year - resp failure - COPD - COVID PNA - abnormal LFT - presumed COVID related - DM - Poor Px Recommendations - PPI BID - Tube feeds>>>will hold for today given active bleed -transfuse one unit PRBC - follow labs - HD - PRN transfusion - No plans for endoscopy per discussion with family Lito Cervantes MD Jul 28, 2020 10:22
--- NOTE | 2020-07-28 10:30 | NUR ---
NURSE NOTES: confirmation for hemodialysis for this afternoon at 1230ish, the patient blood pressure remains stable and heart rate ranging from 98-110. patient remains disoriented and attempts to reach towards ET-tube.
--- NOTE | 2020-07-28 11:12 | Nephrology Progress Note ---
Assessment/Plan Problem List: (1) Hypertensive kidney disease (2) ESRD (end stage renal disease) (3) Hyperkalemia (4) Suspected 2019 novel coronavirus infection (5) Acute respiratory failure Assessment 70-year-old female with end-stage renal disease Presented with volume overload and hyperkalemia Suspected COVID-19 virus infection Hypertensive emergency Diabetes mellitus CHF Plan July 28: Patient is about to get started on dialysis. Labs reviewed. Blood pressure 90 to 100 systolic. Continue per consultants. July 27: Patient dialyzed July 26. Labs reviewed. Status quo. Dialysis again in a.m. July 26: Patient was dialyzed this morning. Labs reviewed. Remains intubated on ventilator. Full code. Tachycardic. Continue per consultants. Per orders. July 25: Patient was dialyzed yesterday. 2 L ultrafiltrate it. Discussed with slip operator today. Attempts at weaning is being tried. Patient will be dialyzed again tomorrow. In view of ejection fraction of 40 to 45% and low blood pressure will adjust the blood pressure medication dosages and give 0.25 mg digoxin IV once. Continue to monitor renal parameters. July 24: Due for dialysis today. Labs reviewed. Low phosphorus replaced. Continue pulmonary support and ID management. Medication list reviewed. BP medication adjusted. July 23: Dialyzed yesterday. Labs reviewed. ABG noted. Patient hypoxic. Vent setting adjusted by slip operator. Continue current care. Dialysis tomorrow. July 22: Patient on ventilator requiring positive end expiratory pressure. Labs reviewed. Blood sugar elevated. Levemir insulin ordered. Dialysis today. Continue per consultants. July 21: Patient now in ICU. Intubated on ventilator. Was dialyzed. Blood pressure well maintained. Has NG tube. Will start medication through NG tube and start feeding. Continue per consultants. Hemodialysis as needed. July 20: Patient seen and examined. Discussed with RN. Remains encephalopathic. Poor ABG results. Patient at high risk at this stage. We will transfer patients to ICU for possible airway support. Patient due for dialysis today. Hyperkalemia probably secondary to acidosis. Will arrange for NG tube insertion and give medication through NG tube. July 19: Mental status appears slightly improved. Was dialyzed 2 days in a row. Blood pressure medication adjusted. Next dialysis tomorrow. Continue per consultants. July 18: Patient encephalopathic, was dialyzed yesterday and had 3 L removed. Will order dialysis again today. Continue per ID. Blood pressure medication adjusted. July 17: Stat hemodialysis ordered. Kayexalate for high potassium. Pulmonary support with oxygen or BiPAP as needed Blood pressure support with proper parameters Per orders Subjective ROS Limited/Unobtainable: Yes Objective Objective Last 24 Hour Vital Signs Date Time Temp Pulse Resp B/P (MAP) Pulse Ox O2 Delivery O2 Flow Rate FiO2 07/28/20 09:00 95 19 94/44 (61) 99 07/28/20 08:00 98.8 99 18 108/48 (68) 99 07/28/20 08:00 100 07/28/20 08:00 102 07/28/20 07:00 99 22 121/55 (77) 99 07/28/20 06:00 103 19 117/47 (70) 98 07/28/20 05:53 111 130/48 07/28/20 05:00 109 19 127/51 (76) 99 07/28/20 04:00 100 07/28/20 04:00 98.5 98 14 104/63 (77) 99 07/28/20 04:00 94 07/28/20 03:00 99 18 111/43 (65) 100 07/28/20 02:00 102 20 113/62 (79) 100 07/28/20 01:00 102 19 112/49 (70) 100 07/28/20 00:00 106 07/28/20 00:00 100 07/28/20 00:00 98.0 102 20 123/45 (71) 100 07/27/20 23:12 108 115/50 07/27/20 23:00 109 20 115/50 (71) 99 07/27/20 22:53 116 27 100 07/27/20 22:00 108 21 113/49 (70) 07/27/20 21:00 117 21 128/57 (80) 07/27/20 20:00 102 07/27/20 20:00 118 24 126/47 (73) 100 07/27/20 20:00 100 07/27/20 19:39 109 23 100 07/27/20 19:00 114 24 116/38 (64) 100 07/27/20 18:00 114 19 128/45 (72) 100 07/27/20 17:40 126 122/46 12/25/20 17:00 117 20 112/45 (67) 100 07/27/20 16:00 98 17 85/31 (49) 99 07/27/20 16:00 100 07/27/20 16:00 99 07/27/20 15:00 106 26 126/49 (74) 97 07/27/20 14:35 98 18 100 07/27/20 14:00 98.2 113 18 120/47 (71) 97 07/27/20 13:00 106 18 124/59 (80) 97 07/27/20 12:19 89 127/63 07/27/20 12:00 97 07/27/20 12:00 98 18 127/63 (84) 98 07/27/20 12:00 100 07/27/20 11:30 98 18 100 Intake and Output 07/27/20 07/28/20 19:00 07:00 Intake Total 565 ml 415 ml Balance 565 ml 415 ml Free Water 150 ml IV Total 55 ml 55 ml Tube Feeding 360 ml 360 ml # Bowel Movements 1 Laboratory Tests 07/28/20 04:15: White Blood Count 12.3H, Red Blood Count 2.08L, Hemoglobin 7.0L, Hematocrit 21.4L, Mean Corpuscular Volume 103H, Mean Corpuscular Hemoglobin 33.9H, Mean Corpuscular Hemoglobin Concent 32.9, Red Cell Distribution Width 15.5H, Platelet Count 171, Mean Platelet Volume 8.7, Neutrophils (%) (Auto) , Lymphocytes (%) (Auto) , Monocytes (%) (Auto) , Eosinophils (%) (Auto) , Basophils (%) (Auto) , Differential Total Cells Counted 100, Neutrophils % (Manual) 93H, Lymphocytes % (Manual) 3L, Monocytes % (Manual) 4, Eosinophils % (Manual) 0, Basophils % (Manual) 0, Band Neutrophils 0, Platelet Estimate Adequate, Platelet Morphology Normal, Polychromasia 1+, Hypochromasia 1+, Anisocytosis 1+, Macrocytosis 1+, Sodium Level 143, Potassium Level 4.2, Chloride Level 104, Carbon Dioxide Level 29, Anion Gap 10, Blood Urea Nitrogen 114H, Creatinine 5.7H, Estimat Glomerular Filtration Rate 7.3, Glucose Level 202H, Calcium Level 8.3L, Phosphorus Level 5.0H, Magnesium Level 2.3, Total Bilirubin 0.9, Aspartate Amino Transf (A ST/SGOT) 20, Alanine Aminotransferase (ALT/SGPT) 15, Alkaline Phosphatase 236H, C-Reactive Protein, Quantitative 21.1H, Pro-B-Type Natriuretic Peptide > 25690K, Total Protein 6.1L, Albumin 2.0L, Globulin 4.1, Albumin/Globulin Ratio 0.5L 07/28/20 05:52: POC Whole Blood Glucose [Pending] Height (Feet): 5 Height (Inches): 4.00 Weight (Pounds): 180 General Appearance: no apparent distress Cardiovascular: tachycardia Respiratory/Chest: decreased breath sounds Abdomen: soft Francis Falk MD Jul 28, 2020 11:12
--- NOTE | 2020-07-28 12:00 | NUR ---
NURSE NOTES: Hemodialysis started with with patient remains stable, heart rate remains at 95-105 in a-fibb, patient is awake and disoriented in bed. patient left upper AV shunt is patent with bruit and thrill are present.
[2020-07-28] MEDS ORDERED: Vitamin D 1000 units Tab GT SCH (12:30)
--- NOTE | 2020-07-28 13:40 | Pulmonology Progress Note ---
Subjective ROS Limited/Unobtainable: Yes Interval Events: Remains on 100% FiO2, PEEP 10 Constitutional: Reports: other - no fever today HEENT: Repors: no symptoms Respiratory: Reports: no symptoms Cardiovascular: Reports: no symptoms Gastrointestinal/Abdominal: Reports: no symptoms Genitourinary: Reports: no symptoms Allergies: Coded Allergies: No Known Allergies (Unverified , 05/12/17) All Systems: reviewed and negative except above Objective Last 24 Hour Vital Signs Date Time Temp Pulse Resp B/P (MAP) Pulse Ox O2 Delivery O2 Flow Rate FiO2 07/28/20 13:00 100 22 103/45 (64) 100 07/28/20 12:00 100 07/28/20 12:00 99.1 97 18 104/44 (64) 100 07/28/20 12:00 88 07/28/20 11:00 103 22 129/51 (77) 99 07/28/20 10:00 95 20 101/42 (61) 100 07/28/20 09:00 95 19 94/44 (61) 99 07/28/20 08:00 98.8 99 18 108/48 (68) 99 07/28/20 08:00 100 07/28/20 08:00 102 07/28/20 07:00 99 22 121/55 (77) 99 07/28/20 06:00 103 19 117/47 (70) 98 07/28/20 05:53 111 130/48 07/28/20 05:00 109 19 127/51 (76) 99 07/28/20 04:00 100 07/28/20 04:00 98.5 98 14 104/63 (77) 99 07/28/20 04:00 94 07/28/20 03:00 99 18 111/43 (65) 100 07/28/20 02:00 102 20 113/62 (79) 100 07/28/20 01:00 102 19 112/49 (70) 100 07/28/20 00:00 106 07/28/20 00:00 100 07/28/20 00:00 98.0 102 20 123/45 (71) 100 07/27/20 23:12 108 115/50 07/27/20 23:00 109 20 115/50 (71) 99 07/27/20 22:53 116 27 100 07/27/20 22:00 108 21 113/49 (70) 07/27/20 21:00 117 21 128/57 (80) 07/27/20 20:00 102 07/27/20 20:00 118 24 126/47 (73) 100 07/27/20 20:00 100 07/27/20 19:39 109 23 100 07/27/20 19:00 114 24 116/38 (64) 100 07/27/20 18:00 114 19 128/45 (72) 100 07/27/20 17:40 126 122/46 07/27/20 17:00 117 20 112/45 (67) 100 07/27/20 16:00 98 17 85/31 (49) 99 07/27/20 16:00 100 07/27/20 16:00 99 07/27/20 15:00 106 26 126/49 (74) 97 07/27/20 14:35 98 18 100 07/27/20 14:00 98.2 113 18 120/47 (71) 97 Intake and Output 07/27/20 07/28/20 19:00 07:00 Intake Total 565 ml 415 ml Balance 565 ml 415 ml Free Water 150 ml IV Total 55 ml 55 ml Tube Feeding 360 ml 360 ml # Bowel Movements 1 General Appearance: WD/WN, no acute distress, other - intubation HEENT: normocephalic Respiratory: chest wall non-tender, crackles/rales Cardiovascular: normal rate, regular rhythm Laboratory Tests 07/27/20 21:24: POC Whole Blood Glucose 190H 07/28/20 04:15: White Blood Count 12.3H, Red Blood Count 2.08L, Hemoglobin 7.0L, Hematocrit 21.4L, Mean Corpuscular Volume 103H, Mean Corpuscular Hemoglobin 33.9H, Mean Corpuscular Hemoglobin Concent 32.9, Red Cell Distribution Width 15.5H, Platelet Count 171, Mean Platelet Volume 8.7, Neutrophils (%) (Auto) , Lymphocytes (%) (Auto) , Monocytes (%) (Auto) , Eosinophils (%) (Auto) , Basophils (%) (Auto) , Differential Total Cells Counted 100, Neutrophils % (Manual) 93H, Lymphocytes % (Manual) 3L, Monocytes % (Manual) 4, Eosinophils % (Manual) 0, Basophils % (Manual) 0, Band Neutrophils 0, Platelet Estimate Adequate, Platelet Morphology Normal, Polychromasia 1+, Hypochromasia 1+, Anisocytosis 1+, Macrocytosis 1+, Sodium Level 143, Potassium Level 4.2, Chloride Level 104, Carbon Dioxide Level 29, Anion Gap 10, Blood Urea Nitrogen 114H, Creatinine 5.7H, Estimat Glomerular Filtration Rate 7.3, Glucose Level 202H, Calcium Level 8.3L, Phosphorus Level 5.0H, Magnesium Level 2.3, Total Bilirubin 0.9, Aspartate Amino Transf (AST/SGOT) 20, Alanine Aminotransferase (ALT/SGPT) 15, Alkaline Phosphatase 236H , C-Reactive Protein, Quantitative 21.1H, Pro-B-Type Natriuretic Peptide > 71208L, Total Protein 6.1L, Albumin 2.0L, Globulin 4.1, Albumin/Globulin Ratio 0.5L 07/28/20 05:52: POC Whole Blood Glucose [Pending] 07/28/20 09:17: POC Whole Blood Glucose 107H 07/28/20 13:16: POC Whole Blood Glucose 100 Current Medications Medications (Trade) Dose Ordered Sig/Toya Route PRN Reason Start Time Stop Time Status Last Admin Dose Admin Acetaminophen (Tylenol) 500 mg Q4HR PRN ORAL For Pain 07/17/20 00:00 08/16/20 00:00 07/24/20 03:39 Acetaminophen (Tylenol) 500 mg Q8H PRN ORAL FHMP 07/16/20 22:45 08/15/20 22:44 07/26/20 11:41 Albuterol Sulfate (Proventil MDI) 2 puff Q4H PRN INH Shortness of Breath 07/16/20 19:00 10/14/20 18:59 Chlorhexidine Gluconate (Yessi-Hex 2%) 1 applic DAILY@1999 TOPIC 07/21/20 20:00 10/19/20 19:59 07/27/20 21:30 Clonidine HCl (Catapres Tab) 0.1 mg Q4H PRN NG bp over 165 syst 07/21/20 12:00 10/14/20 22:44 Dexamethasone Sodium Phosphate (Decadron 10mg/ ml Inj) 6 mg DAILY IV 07/20/20 12:15 07/29/20 09:01 07/28/20 09:09 Dextrose (Dextrose 50%) 25 ml Q30M PRN IV Hypoglycemia 07/22/20 08:00 10/20/20 07:59 Dextrose (Dextrose 50%) 50 ml Q30M PRN IV Hypoglycemia 07/22/20 08:00 10/20/20 07:59 Docusate Sodium (Colace) 100 mg THREE TIMES A DAY NG 07/21/20 13:00 08/20/20 12:59 07/28/20 09:09 Epoetin Panchito (Epoetin Panchito(ESRD on dialysis)) 4,000 unit THU-THU-THU SUBQ 07/27/20 21:00 10/25/20 20:59 07/27/20 21:35 Haloperidol Lactate (Haldol) 5 mg Q6H PRN IM Agitation 07/17/20 17:30 08/31/20 17:29 07/18/20 21:34 Insulin Aspart (NovoLOG) Q6HR SUBQ 07/22/20 08:15 10/20/20 11:29 07/28/20 05:56 Insulin Detemir (Levemir) 12 units Q12HR SUBQ 07/24/20 09:00 10/20/20 09:59 07/28/20 09:28 Metoprolol Tartrate (Lopressor) 25 mg EVERY 6 HOURS NG 07/26/20 12:00 10/24/20 11:59 07/28/20 05:53 Pantoprazole (Protonix) 40 mg EVERY 12 HOURS IVP 07/21/20 21:00 08/20/20 20:59 07/28/20 09:09 Piperacillin Sod/ Tazobactam Sod 2.25 gm/Dextrose 55 ml @ 110 mls/hr Q8HR IV 07/28/20 14:00 08/04/20 13:59 Quetiapine Fumarate (SEROqueL) 50 mg Q12HR ORAL 07/17/20 14:00 08/31/20 13:59 07/28/20 09:09 Vitamin D (Vitamin D) 5,000 unit DAILY GT 07/29/20 09:00 08/28/20 08:59 Vitamin D (Vitamin D) 5,000 unit ONCE GT 07/28/20 12:30 07/28/20 14:00 Assessment/Plan Assessment/Plan Assessment/Plan 1. COVID-19 pneumonia. 2. COPD exacerbation. 3. Pneumonia - CXR shows b/l opacities - she received decadron once which has now been discontinued 4. Hypertensive emergency. - Blood pressure controlled. 5. Leukocytosis.; improving 6. Anemia. 7. Hyponatremia.; resolved 8. Hyperkalemia.; resolved 9. Hypochloridemia.; resolved 10. Hyperglycemia. 11. ESRD, on dialysis. 12. Respiratory failure; now intubated PLAN Continue O2; currently 100% Vent; AC mode On PEEP now 10 S/p HD scheduled for today again.; Will check ABG after dialysis Rate 16 Steroids Defer Remdesivir choice to ID; renal failure precludes use Levy Law MD, MD Jul 28, 2020 13:40
--- NOTE | 2020-07-28 13:45 | NUR ---
NURSE NOTES: Blood sample for Type and cross have been collected by piano mechanic apprentice. samples taken to lab for analysis.
[2020-07-28] MEDS ORDERED: Piperacillin/Tazobactam 2.25 GM in D5W 55 ML IV SCH (14:00)
--- NOTE | 2020-07-28 15:30 | NUR ---
NURSE NOTES: hemodialysis close to ending and awaiting to administer medications. 1200 metoprolol dose held.
[2020-07-28] MEDS ORDERED: Vitamin D 1000 units Tab ORAL SCH ×2 (18:00)
--- NOTE | 2020-07-28 18:00 | NUR ---
NURSE NOTES: RT made aware of order placed by Dr. Allen after abg results were read over the phone. Ventilator setting changed to AC 12, TV: 450, FIo2 of 100% and peep of 10, order for ABG to be drawn on 07/29/20 at 0400.
--- NOTE | 2020-07-28 19:30 | NUR ---
NURSE HAND-OFF REPORT: Latest Vital Signs: Temperature 98.9 , Pulse 103 , B/P 134 /47 , Respiratory Rate 24 , O2 SAT 100 , Nasal Cannula, O2 Flow Rate 3.0 . Vital Sign Comment: EKG Rhythm: Atrial Fibrillation Rhythm change?: N Notified?: Roxanne Gatica MD Response: Latest Elizabeth Fall Score: 50 Fall Risk: High Risk Safety Measures: Call light Within Reach, Bed Alarm Zone 1, Side Rails Side Rails x2, Bed position Low and Locked. Fall Precautions: Door Sign Report given to SIDNEY Kemp.
--- NOTE | 2020-07-28 19:31 | NUR ---
NURSE NOTES: received pt from Brandon LITTLE., pt is awake and AOx0-1 at this time confused. pt ET tube 7.5 lip line 24cm, AC 12 T 450 Fio2 100% P10. O2sat is at 100% no SOB noted. pt has OGT, and currently pt is on NPO per Dr's order. no BM noted at this time.pt's Left upper arm AV shunt noted, bruit and thrill noted as well. ABD large, soft, and non-tender. bilateral soft wrist restrain noted, pulse noted, skin intact, and no edema noted as well. pt has right femoral TLC, dressing site, intact, clean, and patent. call light within reach. will continue to monitor pt with plan of care. bed at the lowest position, alarmed, and locked.
[2020-07-28] MEDS: Dyna-Hex 2% Top Sol 2oz TOPIC SCH (20:14)
--- NOTE | 2020-07-28 20:38 | NUR ---
NURSE NOTES: dropped seroquel 50mg on the floor, wasted by jose roberto Neley RN., and pulled out another dose of seroquel for 2100
--- NOTE | 2020-07-28 20:58 | NUR ---
NURSE NOTES: pt is NPO at this time, so only 6 units given (levemir)
--- NOTE | 2020-07-28 21:20 | NUR ---
NURSE NOTES: Blood transfusion consent obtained from the daughter Alice Donnelly Via telephone consent. witnessed by Viv LITTLE
--- NOTE | 2020-07-28 21:52 | Cardiac Electrophysiology PN ---
Assessment/Plan Assessment/Plan 1. Accelerated HTN. Better on Lopressor 25 po q 6hr and p.r.n.clonidine. EF 40- 45% 2. Atrial fib with RVR with HR up to 150s. Rate stable on Lopressor 25 q 6 hr and also got Lopressor 10 mg ivp 3. ESRD, on hemodialysis. 4. Hyponatremia, sodium 129. Fluid restriction per Dr. Falk. 5. Volume overload, BNP of more than 35,000 and EF 40-45%. On HD 6. Covid PNA and resp failure on the Vent with 100% Fio2 and PEEP 15 Covid positive 07/11 and 07/17 7. Tarry stool. Will check stool OB. Getting PRBC today DW RN Subjective Subjective Confused in restraints. In Covid isolation. Intubated on 100% Fio2 and PEEP 10. Had HD today 1.6 liter Developed atrial fib with RVR 140s. Now HR 70s in atrial fib on Lopressor. Getting PRBC. NPO for GI bleed Objective Last 24 Hour Vital Signs Date Time Temp Pulse Resp B/P (MAP) Pulse Ox O2 Delivery O2 Flow Rate FiO2 07/28/20 21:07 Mechanical Ventilator 100 07/28/20 19:00 103 24 134/47 (76) 100 07/28/20 18:03 99 27 100 07/28/20 18:02 104 127/54 07/28/20 18:00 105 23 127/54 (78) 100 07/28/20 17:00 97 20 128/46 (73) 100 07/28/20 16:00 101 07/28/20 16:00 Mechanical Ventilator 07/28/20 16:00 100 07/28/20 16:00 98.9 105 22 121/64 (83) 100 07/28/20 15:00 100 18 110/41 (64) 100 07/28/20 14:30 Mechanical Ventilator 100 07/28/20 14:00 92 16 109/42 (64) 100 07/28/20 13:30 104 19 100 07/28/20 13:00 100 22 103/45 (64) 100 07/28/20 12:00 Mechanical Ventilator 07/28/20 12:00 100 07/28/20 12:00 99.1 97 18 104/44 (64) 100 07/28/20 12:00 97 104/44 07/28/20 12:00 88 12/26/20 11:00 103 22 129/51 (77) 99 07/28/20 11:00 Mechanical Ventilator 100 07/28/20 10:00 95 20 101/42 (61) 100 07/28/20 09:00 95 19 94/44 (61) 99 07/28/20 08:00 98.8 99 18 108/48 (68) 99 07/28/20 08:00 Mechanical Ventilator 07/28/20 08:00 100 07/28/20 08:00 102 07/28/20 07:00 99 22 121/55 (77) 99 07/28/20 06:00 103 19 117/47 (70) 98 07/28/20 05:53 111 130/48 07/28/20 05:00 109 19 127/51 (76) 99 07/28/20 04:00 100 07/28/20 04:00 98.5 98 14 104/63 (77) 99 07/28/20 04:00 94 07/28/20 03:00 99 18 111/43 (65) 100 07/28/20 02:00 102 20 113/62 (79) 100 07/28/20 01:00 102 19 112/49 (70) 100 07/28/20 00:00 106 07/28/20 00:00 100 07/28/20 00:00 98.0 102 20 123/45 (71) 100 07/27/20 23:12 108 115/50 07/27/20 23:00 109 20 115/50 (71) 99 07/27/20 22:53 116 27 100 07/27/20 22:00 108 21 113/49 (70) Intake and Output 07/27/20 07/28/20 19:00 07:00 Intake Total 565 ml 415 ml Balance 565 ml 415 ml Free Water 150 ml IV Total 55 ml 55 ml Tube Feeding 360 ml 360 ml # Bowel Movements 1 Laboratory Tests Test 07/28/20 04:15 07/28/20 05:52 07/28/20 09:17 07/28/20 13:16 White Blood Count 12.3 K/UL (4.8-10.8) H Red Blood Count 2.08 M/UL (4.20-5.40) L Hemoglobin 7.0 G/DL (12.0-16.0) L Hematocrit 21.4 % (37.0-47.0) L Mean Corpuscular Volume 103 FL (80-99) H Mean Corpuscular Hemoglobin 33.9 PG (27.0-31.0) H Mean Corpuscular Hemoglobin Concent 32.9 G/DL (32.0-36.0) Red Cell Distribution Width 15.5 % (11.6-14.8) H Platelet Count 171 K/UL (150-450) Mean Platelet Volume 8.7 FL (6.5-10.1) Neutrophils (%) (Auto) % (45.0-75.0) Lymphocytes (%) (Auto) % (20.0-45.0) Monocytes (%) (Auto) % (1.0-10.0) Eosinophils (%) (Auto) % (0.0-3.0) Basophils (%) (Auto) % (0.0-2.0) Differential Total Cells Counted 100 Neutrophils % (Manual) 93 % (45-75) H Lymphocytes % (Manual) 3 % (20-45) L Monocytes % (Manual) 4 % (1-10) Eosinophils % (Manual) 0 % (0-3) Basophils % (Manual) 0 % (0-2) Band Neutrophils 0 % (0-8) Platelet Estimate Adequate Platelet Morphology Normal Polychromasia 1+ Hypochromasia 1+ Anisocytosis 1+ Macrocytosis 1+ Sodium Level 143 MMOL/L (136-145) Potassium Level 4.2 MMOL/L (3.5-5.1) Chloride Level 104 MMOL/L (98-107) Carbon Dioxide Level 29 MMOL/L (21-32) Anion Gap 10 mmol/L (5-15) Blood Urea Nitrogen 114 mg/dL (7-18) H Creatinine 5.7 MG/DL (0.55-1.30) H Estimat Glomerular Filtration Rate 7.3 mL/min (>60) Glucose Level 202 MG/DL (74-106) H Calcium Level 8.3 MG/DL (8.5-10.1) L Phosphorus Level 5.0 MG/DL (2.5-4.9) H Magnesium Level 2.3 MG/DL (1.8-2.4) Total Bilirubin 0.9 MG/DL (0.2-1.0) Aspartate Amino Transf (AST/SGOT) 20 U/L (15-37) Alanine Aminotransferase (ALT/SGPT) 15 U/L (12-78) Alkaline Phosphatase 236 U/L (46-116) H C-Reactive Protein, Quantitative 21.1 mg/dL (0.00-0.90) H Pro-B-Type Natriuretic Peptide > 94996 pg/mL (0-125) H Total Protein 6.1 G/DL (6.4-8.2) L Albumin 2.0 G/DL (3.4-5.0) L Globulin 4.1 g/dL Albumin/Globulin Ratio 0.5 (1.0-2.7) L POC Whole Blood Glucose Pending 107 MG/DL (74-106) H 100 MG/DL (74-106) Test 07/28/20 15:15 07/28/20 17:27 07/28/20 20:22 Arterial Blood pH 7.638 (7.350-7.450) Arterial Blood Partial Pressure CO2 26.8 mmHg (35.0-45.0) L Arterial Blood Partial Pressure O2 145.2 mmHg (75.0-100.0) H Arterial Blood HCO3 28.1 mmol/L (22.0-26.0) H Arterial Blood Oxygen Saturation 99.7 % (95-100) Arterial Blood Base Excess 6.8 (-2-2) H Faheem Test Positive POC Whole Blood Glucose 141 MG/DL (74-106) H 143 MG/DL (74-106) H Objective HEAD AND NECK: .Orally intubated LUNGS: Coarse rhonchi. CARDIOVASCULAR: Regular S1 and S2 with no gallop or murmur. ABDOMEN: Soft. EXTREMITIES: No pitting edema. Zev Gatica MD Jul 28, 2020 21:52
--- NOTE | 2020-07-28 21:59 | General Progress Note ---
Subjective ROS Limited/Unobtainable: Yes Allergies: Coded Allergies: No Known Allergies (Unverified , 05/12/17) Objective Last 24 Hour Vital Signs Date Time Temp Pulse Resp B/P (MAP) Pulse Ox O2 Delivery O2 Flow Rate FiO2 07/28/20 21:07 Mechanical Ventilator 100 07/28/20 20:50 109 23 100 07/28/20 19:00 103 24 134/47 (76) 100 07/28/20 18:03 99 27 100 07/28/20 18:02 104 127/54 07/28/20 18:00 105 23 127/54 (78) 100 07/28/20 17:00 97 20 128/46 (73) 100 07/28/20 16:00 101 07/28/20 16:00 Mechanical Ventilator 07/28/20 16:00 100 07/28/20 16:00 98.9 105 22 121/64 (83) 100 07/28/20 15:00 100 18 110/41 (64) 100 07/28/20 14:30 Mechanical Ventilator 100 07/28/20 14:00 92 16 109/42 (64) 100 07/28/20 13:30 104 19 100 07/28/20 13:00 100 22 103/45 (64) 100 07/28/20 12:00 Mechanical Ventilator 07/28/20 12:00 100 07/28/20 12:00 99.1 97 18 104/44 (64) 100 07/28/20 12:00 97 104/44 07/28/20 12:00 88 07/28/20 11:00 103 22 129/51 (77) 99 07/28/20 11:00 Mechanical Ventilator 100 07/28/20 10:00 95 20 101/42 (61) 100 07/28/20 09:00 95 19 94/44 (61) 99 07/28/20 08:00 98.8 99 18 108/48 (68) 99 07/28/20 08:00 Mechanical Ventilator 07/28/20 08:00 100 07/28/20 08:00 102 07/28/20 07:00 99 22 121/55 (77) 99 07/28/20 06:00 103 19 117/47 (70) 98 07/28/20 05:53 111 130/48 07/28/20 05:00 109 19 127/51 (76) 99 07/28/20 04:00 100 07/28/20 04:00 98.5 98 14 104/63 (77) 99 07/28/20 04:00 94 07/28/20 03:00 99 18 111/43 (65) 100 07/28/20 02:00 102 20 113/62 (79) 100 07/28/20 01:00 102 19 112/49 (70) 100 07/28/20 00:00 106 07/28/20 00:00 100 07/28/20 00:00 98.0 102 20 123/45 (71) 100 07/27/20 23:12 108 115/50 07/27/20 23:00 109 20 115/50 (71) 99 07/27/20 22:53 116 27 100 07/27/20 22:00 108 21 113/49 (70) Intake and Output 07/27/20 07/28/20 19:00 07:00 Intake Total 565 ml 415 ml Balance 565 ml 415 ml Free Water 150 ml IV Total 55 ml 55 ml Tube Feeding 360 ml 360 ml # Bowel Movements 1 Laboratory Tests 07/28/20 04:15: White Blood Count 12.3H, Red Blood Count 2.08L, Hemoglobin 7.0L, Hematocrit 2 1.4L, Mean Corpuscular Volume 103H, Mean Corpuscular Hemoglobin 33.9H, Mean Corpuscular Hemoglobin Concent 32.9, Red Cell Distribution Width 15.5H, Platelet Count 171, Mean Platelet Volume 8.7, Neutrophils (%) (Auto) , Lymphocytes (%) (Auto) , Monocytes (%) (Auto) , Eosinophils (%) (Auto) , Basophils (%) (Auto) , Differential Total Cells Counted 100, Neutrophils % (Manual) 93H, Lymphocytes % (Manual) 3L, Monocytes % (Manual) 4, Eosinophils % (Manual) 0, Basophils % (Manual) 0, Band Neutrophils 0, Platelet Estimate Adequate, Platelet Morphology Normal, Polychromasia 1+, Hypochromasia 1+, Anisocytosis 1+, Macrocytosis 1+, Sodium Level 143, Potassium Level 4.2, Chloride Level 104, Carbon Dioxide Level 29, Anion Gap 10, Blood Urea Nitrogen 114H, Creatinine 5.7H, Estimat Glomerular Filtration Rate 7.3, Glucose Level 202H, Calcium Level 8.3L, Phosphorus Level 5.0H, Magnesium Level 2.3, Total Bilirubin 0.9, Aspartate Amino Transf (AST/SGOT) 20, Alanine Aminotransferase (ALT/SGPT) 15, Alkaline Phosphatase 236H , C-Reactive Protein, Quantitative 21.1H, Pro-B-Type Natriuretic Peptide > 44882R, Total Protein 6.1L, Albumin 2.0L, Globulin 4.1, Albumin/Globulin Ratio 0.5L 07/28/20 05:52: POC Whole Blood Glucose [Pending] 07/28/20 09:17: POC Whole Blood Glucose 107H 07/28/20 13:16: POC Whole Blood Glucose 100 07/28/20 15:15: Arterial Blood pH 7.638*H, Arterial Blood Partial Pressure CO2 26.8L, Arterial Blood Partial Pressure O2 145.2H, Arterial Blood HCO3 28.1H, Arterial Blood Oxygen Saturation 99.7, Arterial Blood Base Excess 6.8H, Faheem Test Positive 07/28/20 17:27: POC Whole Blood Glucose 141H 07/28/20 20:22: POC Whole Blood Glucose 143H Height (Feet): 5 Height (Inches): 4.00 Weight (Pounds): 180 Assessment/Plan Problem List: (1) Pneumonia ICD Codes: J18.9 - Pneumonia, unspecified organism SNOMED: 718699308 (2) Hypertension ICD Codes: I10 - Essential (primary) hypertension SNOMED: 41513861 (3) Renal failure ICD Codes: N19 - Unspecified kidney failure SNOMED: 37252164 (4) Anemia in chronic kidney disease (CKD) ICD Codes: N18.9 - Chronic kidney disease, unspecified; D63.1 - Anemia in chronic kidney disease SNOMED: 164340849 (5) weakness (6) ESRD (end stage renal disease) ICD Codes: N18.6 - End stage renal disease SNOMED: 93089196 (7) Diabetic nephropathy with proteinuria ICD Codes: E11.21 - Type 2 diabetes mellitus with diabetic nephropathy SNOMED: 28923952, 612463356 Status: progressing, deteriorating Assessment/Plan: sepsis no change not improving poor prognosis copd niddm htn esrd on hd resp failure niddm covid positive pna Makenna Daniel MD Jul 28, 2020 21:59
[2020-07-28] MEDS: Acetaminophen 500mg (ES) tab ORAL PRN (22:07)
--- NOTE | 2020-07-28 22:10 | NUR ---
NURSE NOTES: blood transfusion started. will continue to monitor pt.
--- NOTE | 2020-07-28 22:40 | NUR ---
NURSE NOTES: no adverse reaction from blood transfusion noted. call light within reach. will continue to monitor pt.
[2020-07-29] VITALS (24 sets, daily range): BP systolic 93–147; BP diastolic 29–92
--- NOTE | 2020-07-29 00:30 | NUR ---
NURSE NOTES: repositioned pt, oral care given. oral suctioned. blood transfusion still running. call light within reach.
--- NOTE | 2020-07-29 00:55 | NUR ---
NURSE NOTES: blood transfusion done, no adverse reaction noted. pt's VS is stable.
[2020-07-29] MEDS: Piperacillin/Tazobactam 2.25 GM in D5W 55 ML IV SCH ×3 (02:05→17:05)
--- NOTE | 2020-07-29 02:30 | NUR ---
NURSE NOTES: repositioned pt, call light within reach. no SOB noted. no fever at this time. will continue to monitor pt.
--- NOTE | 2020-07-29 04:10 | NUR ---
NURSE NOTES: one loose dark green BM noted, cleaned pt. oral care provided, stool collected for OB stool sample.no SOB noted. pt is restless at this time. call light within reach. will continue to monitor pt.
[2020-07-29] MEDS: NovoLOG Insulin Flexpen SUBQ SCH ×4 (05:09→17:19)
[2020-07-29 05:26] LABS: HEMATOCRIT 23.5 % (37.0-47.0); HEMOGLOBIN 8.2 G/DL (12.0-16.0); MEAN CORPUSCULAR VOLUME 96 FL (80-99); PLATELET COUNT 176 K/UL (150-450); RED BLOOD COUNT 2.46 M/UL (4.20-5.40); RED CELL DISTRIBUTION WIDTH 17.6 % (11.6-14.8); WHITE BLOOD COUNT 12.6 K/UL (4.8-10.8)
[2020-07-29 05:56] LABS: ALBUMIN 2.1 G/DL (3.4-5.0); ALBUMIN/GLOBULIN RATIO 0.5 (1.0-2.7); BILIRUBIN,TOTAL 1.2 MG/DL (0.2-1.0); CALCIUM 8.4 MG/DL (8.5-10.1); CREATININE 3.7 MG/DL (0.55-1.30); POTASSIUM 3.7 MMOL/L (3.5-5.1)
[2020-07-29 06:02] LABS: PHOSPHORUS 3.9 MG/DL (2.5-4.9)
[2020-07-29 06:04] LABS: BILIRUBIN,DIRECT 0.8 MG/DL (0.0-0.3)
--- NOTE | 2020-07-29 06:14 | NUR ---
NURSE NOTES: pt is agitated, restless, and trying to kick staffs. explained that we are trying to help the pt. call ligh within reach. will continue to monitor pt.
--- NOTE | 2020-07-29 06:17 | NUR ---
NURSE NOTES: initiated bilateral soft wrist restrains due to pt is not compliant. pulse noted, skin intact, no edema noted. will continue to monitor with plan of care. call light within reach.
--- NOTE | 2020-07-29 07:08 | NUR ---
NURSE NOTES: Dr. Blair at the bed side. no new order received.
--- NOTE | 2020-07-29 07:10 | NUR ---
NURSE HAND-OFF REPORT: Latest Vital Signs: Temperature 98.7 , Pulse 97 , B/P 125 /44 , Respiratory Rate 13 , O2 SAT 100 , Nasal Cannula, O2 Flow Rate 3.0 . Vital Sign Comment: [stable] Need to Follow up: OB stool result, ABG in AM, EKG Rhythm: Atrial Fibrillation Rhythm change?: N MD Notified?: Roxanne Gatica MD Response: Latest Elizabeth Fall Score: 50 Fall Risk: High Risk Safety Measures: Call light Within Reach, Bed Alarm Zone 1, Side Rails Side Rails x2, Bed position Low and Locked. Fall Precautions: Door Sign Report given to [Maryellen LITTLE].
--- NOTE | 2020-07-29 07:11 | NUR ---
NURSE NOTES: Received patient from Viridiana Bill RN., Patient is awake and AOx0-1 at this time confused. pt ET tube 7.5 lip line 24cm, AC 12 T 450 Fio2 100% P10. O2sat is at 100% no SOB noted. Patient has OGT, and currently pt is on NPO per Dr's order. no BM noted at this time. Patient's Left upper arm AV shunt noted, bruit and thrill noted as well. Abdomen large, soft, and non-tender. Bilateral soft wrist restrain noted, pulse noted, skin intact, and no edema noted as well. Patient has right femoral TLC, dressing site, intact, clean, and patent. Call light within reach. will continue to monitor pt with plan of care. Bed at the lowest position, alarmed, and locked. Airborne isolation observed.
--- NOTE | 2020-07-29 08:38 | NUR ---
NURSE NOTES: Left message to Dr. Allen regarding today's ABG result. Awaiting for call back.
--- NOTE | 2020-07-29 08:48 | NUR ---
RD ASSESSMENT & RECOMMENDATIONS SEE CARE ACTIVITY FOR COMPLETE ASSESSMENT DAILY ESTIMATED NEEDS: Needs based on ESRD on HD, DM, crtical care 49 adj 25-33 kcals/kg 3944-0829 total kcals 1.2-1.8 g protein/kg 59-88 g total protein Fluid per MD, on HD NUTRITION DIAGNOSIS: 1) Increased kcal and protein needs R/T renal dysfunction as evidenced by pt w/ESRD on HD. 2) Swallowing difficulty R/T respiratory failure as evidenced by orally intubated, on NGT feeds. 3) Altered nutrition related lab values R/T h/o DM as evidenced by elev BGs (140, 612, 328-> now improved POC glu 75-188). CURRENT TF:Nepro @ 30ml/hr x 24 hrs- HELD for possible GID ENTERAL NUTRITION RECOMMENDATIONS: Nepro @ 35ml/hr x 24 hrs to provide 840ml, 1512kcal, 68g prot, 611ml free water * As medically able restart Nepro @low rate, 15ml/hr as tolerated. * Increase as tolerated goal rate to 35ml/hr to better meet est kcal/prot needs * HOB over 30 degrees/ water flush per MD ADDITIONAL RECOMMENDATIONS: 1) Daily calibrated bedscale wt: Wt fluctuating 80kg's-> 60kg's 2) Monitor BGs closely: BGs improved on long acting insulin + NISS Monitor for hypoglycemia, need for insulin adjustment 3) Nephrovite x 1 4) Monitor lytes . .
[2020-07-29] MEDS: Pantoprazole Inj IVP SCH ×2 (08:56→20:31)
[2020-07-29] MEDS: Vitamin D 1000 units Tab ORAL SCH (08:56)
[2020-07-29] MEDS: dexAMETHasone 10mg/ml Inj IV SCH (08:56)
[2020-07-29] MEDS: Levemir Flexpen SUBQ SCH ×2 (09:00→21:26)
[2020-07-29] MEDS ORDERED: Vitamin D 1000 units Tab GT SCH (09:00)
[2020-07-29] MEDS: Docusate 100mg/10ml Liq NG SCH ×3 (09:00→21:26)
--- NOTE | 2020-07-29 09:36 | NUR ---
NURSE NOTES: Dr. Allen at bedside. Aware of latest ABG. With orders obtained to increase AC rate to 16, and increase tidal volume to 500. Will inform RT assigned to the patient.
--- NOTE | 2020-07-29 09:52 | Pulmonology Progress Note ---
Subjective ROS Limited/Unobtainable: Yes Interval Events: Remains on 100% FiO2, PEEP 10 Constitutional: Reports: other - no fever today HEENT: Repors: no symptoms Respiratory: Reports: no symptoms Cardiovascular: Reports: no symptoms Gastrointestinal/Abdominal: Reports: no symptoms Genitourinary: Reports: no symptoms Allergies: Coded Allergies: No Known Allergies (Unverified , 05/12/17) All Systems: reviewed and negative except above Objective Last 24 Hour Vital Signs Date Time Temp Pulse Resp B/P (MAP) Pulse Ox O2 Delivery O2 Flow Rate FiO2 07/29/20 09:00 97 19 127/49 (75) 99 07/29/20 08:00 100 07/29/20 08:00 99.5 96 20 134/46 (75) 100 07/29/20 08:00 Mechanical Ventilator 07/29/20 07:27 92 07/29/20 07:09 97 18 100 07/29/20 07:00 94 13 122/44 (70) 99 07/29/20 06:00 97 13 125/44 (71) 100 07/29/20 05:32 98 124/48 07/29/20 05:00 98 20 124/48 (73) 100 07/29/20 04:00 100 07/29/20 04:00 Mechanical Ventilator 07/29/20 04:00 100 07/29/20 04:00 98.7 100 23 128/48 (74) 100 07/29/20 03:00 97 17 106/45 (65) 100 07/29/20 02:00 98 18 120/40 (66) 100 07/29/20 01:01 104 20 100 07/29/20 01:00 98 21 134/47 (76) 100 07/29/20 00:32 96 129/55 07/29/20 00:00 Mechanical Ventilator 07/29/20 00:00 98.5 98 16 118/52 (74) 100 07/29/20 00:00 101 07/28/20 23:00 106 22 133/52 (79) 100 07/28/20 22:00 102 21 112/41 (64) 100 07/28/20 21:07 Mechanical Ventilator 100 07/28/20 21:00 Mechanical Ventilator 07/28/20 21:00 104 25 137/47 (77) 100 07/28/20 20:50 109 23 100 07/28/20 20:00 98.8 101 22 130/49 (76) 100 07/28/20 20:00 100 07/28/20 19:00 103 24 134/47 (76) 100 07/28/20 18:03 99 27 100 07/28/20 18:02 104 127/54 07/28/20 18:00 105 23 127/54 (78) 100 07/28/20 17:00 97 20 128/46 (73) 100 07/28/20 16:00 101 07/28/20 16:00 Mechanical Ventilator 07/28/20 16:00 100 07/28/20 16:00 98.9 105 22 121/64 (83) 100 07/28/20 15:00 100 18 110/41 (64) 100 07/28/20 14:30 Mechanical Ventilator 100 07/28/20 14:00 92 16 109/42 (64) 100 07/28/20 13:30 104 19 100 07/28/20 13:00 100 22 103/45 (64) 100 07/28/20 12:00 Mechanical Ventilator 07/28/20 12:00 100 07/28/20 12:00 99.1 97 18 104/44 (64) 100 07/28/20 12:00 97 104/44 07/28/20 12:00 88 07/28/20 11:00 103 22 129/51 (77) 99 07/28/20 11:00 Mechanical Ventilator 100 07/28/20 10:00 95 20 101/42 (61) 100 Intake and Output 07/28/20 07/29/20 19:00 07:00 Intake Total 250 ml 55 ml Balance 250 ml 55 ml IV Total 100 ml 55 ml Tube Feeding 120 ml Other 30 ml # Bowel Movements 1 4 General Appearance: WD/WN, no acute distress, other - intubation HEENT: normocephalic Respiratory: chest wall non-tender, crackles/rales Cardiovascular: normal rate, regular rhythm Laboratory Tests 07/28/20 13:16: POC Whole Blood Glucose 100 07/28/20 15:15: Arterial Blood pH 7.638*H, Arterial Blood Partial Pressure CO2 26.8L, Arterial Blood Partial Pressure O2 145.2H, Arterial Blood HCO3 28.1H, Arterial Blood Oxygen Saturation 99.7, Arterial Blood Base Excess 6.8H, Faheem Test Positive 07/28/20 17:27: POC Whole Blood Glucose 141H 07/28/20 20:22: POC Whole Blood Glucose 143H 07/29/20 04:00: Stool Occult Blood Positive 07/29/20 04:25: White Blood Count 12.6H, Red Blood Count 2.46L, Hemoglobin 8.2L, Hematocrit 23.5L, Mean Corpuscular Volume 96, Mean Corpuscular Hemoglobin 33.2H, Mean Corpuscular Hemoglobin Concent 34.7, Red Cell Distribution Width 17.6H, Platelet Count 176, Mean Platelet Volume 9.7, Neutrophils (%) (Auto) , Lymphocytes (%) (Auto) , Monocytes (%) (Auto) , Eosinophils (%) (Auto) , Basophils (%) (Auto) , Differential Total Cells Counted 100, Neutrophils % (Manual) 93H, Lymphocytes % (Manual) 3L, Monocytes % (Manual) 4, Eosinophils % (Manual) 0, Basophils % (Manual) 0, Band Neutrophils 0, Platelet Estimate Adequate, Platelet Morphology Normal, Hypochromasia 1+, Anisocytosis 1+, Sodium Level 141, Potassium Level 3.7, Chloride Level 102, Carbon Dioxide Level 36H, Anion Gap 3L, Blood Urea Nitrogen 63H, Creatinine 3.7H, Estimat Glomerular Filtration Rate 12.1, Glucose Level 89#, Calcium Level 8.4L, Phosphorus Level 3.9, Magnesium Level 2.2, Total Bilirubin 1.2H, Direct Bilirubin 0.8H, Aspartate Amino Transf (AST/SGOT) 24, Alanine Aminotransferase (ALT/SGPT) 13, Alkaline Phosphatase 226H, C-Reactive Protein, Quantitative 20.4H, Pro-B-Type Natriuretic Peptide > 24494I, Total Protein 6.3L, Albumin 2.1L, Globulin 4.2, Albumin/Globulin Ratio 0.5L 07/29/20 04:36: POC Whole Blood Glucose [Pending] 07/29/20 08:00: Arterial Blood pH 7.300L, Arterial Blood Partial Pressure CO2 70.8*H, Arterial Blood Partial Pressure O2 74.0L, Arterial Blood HCO3 74.9*H, Arterial Blood Oxygen Saturation 94.6L, Arterial Blood Base Excess 6.4H, Faheem Test Positive 07/29/20 09:13: POC Whole Blood Glucose 96 Current Medications Medications (Trade) Dose Ordered Sig/Toya Route PRN Reason Start Time Stop Time Status Last Admin Dose Admin Acetaminophen (Tylenol) 650 mg EVERY 6 HOURS PRN NG Mild Pain (Pain Scale 1-3) 07/29/20 09:05 08/28/20 09:04 Acetaminophen (Tylenol) 650 mg EVERY 6 HOURS PRN NG Temp >100.5 07/29/20 09:15 08/28/20 09:14 Albuterol Sulfate (Proventil MDI) 2 puff Q4H PRN INH Shortness of Breath 07/16/20 19:00 10/14/20 18:59 Chlorhexidine Gluconate (Yessi-Hex 2%) 1 applic DAILY@1999 TOPIC 07/21/20 20:00 10/19/20 19:59 07/28/20 20:14 Clonidine HCl (Catapres Tab) 0.1 mg Q4H PRN NG bp over 165 syst 07/21/20 12:00 10/14/20 22:44 Dextrose (Dextrose 50%) 25 ml Q30M PRN IV Hypoglycemia 07/22/20 08:00 10/20/20 07:59 Dextrose (Dextrose 50%) 50 ml Q30M PRN IV Hypoglycemia 07/22/20 08:00 10/20/20 07:59 Docusate Sodium (Colace) 100 mg THREE TIMES A DAY NG 07/21/20 13:00 08/20/20 12:59 07/28/20 09:09 Epoetin Panchito (Epoetin Panchito(ESRD on dialysis)) 4,000 unit THU-THU-THU SUBQ 07/27/20 21:00 10/25/20 20:59 07/27/20 21:35 Haloperidol Lactate (Haldol) 5 mg Q6H PRN IM Agitation 07/17/20 17:30 08/31/20 17:29 07/18/20 21:34 Insulin Aspart (NovoLOG) Q6HR SUBQ 07/22/20 08:15 10/20/20 11:29 07/28/20 18:02 Insulin Detemir (Levemir) 12 units Q12HR SUBQ 07/24/20 09:00 10/20/20 09:59 07/28/20 20:58 Metoprolol Tartrate (Lopressor) 25 mg EVERY 6 HOURS NG 07/26/20 12:00 10/24/20 11:59 07/29/20 05:32 Pantoprazole (Protonix) 40 mg EVERY 12 HOURS IVP 07/21/20 21:00 08/20/20 20:59 07/29/20 08:56 Piperacillin Sod/ Tazobactam Sod 2.25 gm/Dextrose 55 ml @ 110 mls/hr Q8HR@0200,1000,1800 IV 07/28/20 18:00 08/04/20 17:59 07/29/20 09:42 Quetiapine Fumarate (SEROqueL) 50 mg Q12HR ORAL 07/17/20 14:00 08/31/20 13:59 07/29/20 08:55 Vitamin D (Vitamin D) 5,000 unit DAILY ORAL 07/29/20 09:00 08/28/20 08:59 07/29/20 08:56 Assessment/Plan Assessment/Plan Assessment/Plan 1. COVID-19 pneumonia. 2. COPD 3. Pneumonia - CXR shows b/l opacities - she received decadron once which has now been discontinued 4. Hypertensive emergency. - Blood pressure controlled. 5. Leukocytosis.; improving 6. Anemia. 7. Hyponatremia.; resolved 8. Hyperkalemia.; resolved 9. Hypochloridemia.; resolved 10. Hyperglycemia. 11. ESRD, on dialysis. 12. Respiratory failure; now intubated PLAN Continue O2; currently 100% Vent; AC mode On PEEP now 10 Most recent ABG showed pH 7.30, PCO2 70; PaO2 74 I will increase tidal volume to 500 and rate to 16 S/p HD yesterday Continue steroids Levy Law MD, MD Jul 29, 2020 09:52
--- NOTE | 2020-07-29 10:00 | NUR ---
NURSE NOTES: Oral care provided.
--- NOTE | 2020-07-29 10:03 | Hematology/Onc Progress Note ---
Assessment/Plan Assessment/Plan Assessment/Plan 1. Pancytopenia with hx anemia due to underlying chronic disease. Have reviewed prior workup, ferritin is >1000, covid19++++ --> Continue to closely monitor. --> Transfuse if hgb <7 --> ferritin is >1000 --> give epogen, has been started 3x a week --> as per renal --> monitor for gi bleed, gi consulted --> hgb trend 7.8-->9.3->8.9->>11-->9.5->8.9->8->8.2 --> plt 42-->50-->65-->104-->109-->176 --> ABX zosyn --> smear has been reviewed --> hep and hiv neg 2. Leukopenia likely reactive process v infection v from meds --> hepatitis and hiv prior negative --> neutropenic precautions if ANC <1500 --> trending stable --> imaging reviewed and no hsm / cirrhosis noted --> wbc 2.7-->3.6->>>2->5-->8-->17 --> increase in wbc due to steriods --> ANC goal >1500 3. End-stage renal disease, on hemodialysis three times a week. --> renal consulted --> continue hd 4. History of coronary artery disease. --> cards reviewed --> diuresis prn 5. History of anemia due to low B12, low iron --> b12 is currently within normal limits --> reobtain q6mo 6. Dizziness and unsteady gait 7. Covid 19 --> rx per id 8. DVt ppsx with SCDs Greatly appreciate consultation and Dw RN Subjective Gastrointestinal/Abdominal: Denies: no symptoms, abdomen distended, abdominal pain, black stools, tarry stools, blood in stool, constipated, diarrhea, difficulty swallowing, nausea, poor appetite, poor fluid intake, rectal b leeding, vomiting, other Genitourinary: Denies: no symptoms, burning, discharge, frequency, flank pain, hematuria, incontinence, pain, urgency, other Neurologic/Psychiatric: Denies: no symptoms, anxiety, depressed, emotional problems, headache, numbness, paresthesia, pre-existing deficit, seizure, tingling, tremors, weakness, other Endocrine: Denies: no symptoms, excessive sweating, flushing, intolerance to cold, intolerance to heat, increased hunger, increased thirst, increased urine, unexplained weight gain, unexplained weight loss, other Allergies: Coded Allergies: No Known Allergies (Unverified , 05/12/17) Subjective 07/19 meds noted, s/p hd, bp has improved, no bleeding, labs reviewed 07/20 labs are noted, no bleeding, meds reviewed, no major changes, hgb 9.5 07/22 remains in the icu, no bleeding, meds reviewed, on nc 07/23 labs noted, no bleeding, in icu, hgb 8.7, plt 90 07/24 is intubated, hgb 11, no bleeding, plt are better, meds reviewed 07/25 remains on zosyn, labs are noted, no bleeding, icu, meds ntoed, s/p hd yesterday with renal 07/26 seen at bedside with Justo Toro, doing HD today, is in the icu, have ordered epo 07/27 black tarry stools overnight, no bleeding, labs reviewed, plt better 07/29 restraints, is agitated, no bleeding, hgb 8.2, improved s/p transfusion Objective Objective Current Medications Medications (Trade) Dose Ordered Sig/Toya Route PRN Reason Start Time Stop Time Status Last Admin Dose Admin Acetaminophen (Tylenol) 650 mg EVERY 6 HOURS PRN NG Mild Pain (Pain Scale 1-3) 07/29/20 09:05 08/28/20 09:04 Acetaminophen (Tylenol) 650 mg EVERY 6 HOURS PRN NG Temp >100.5 07/29/20 09:15 08/28/20 09:14 Albuterol Sulfate (Proventil MDI) 2 puff Q4H PRN INH Shortness of Breath 07/16/20 19:00 10/14/20 18:59 Chlorhexidine Gluconate (Yessi-Hex 2%) 1 applic DAILY@1999 TOPIC 07/21/20 20:00 10/19/20 19:59 07/28/20 20:14 Clonidine HCl (Catapres Tab) 0.1 mg Q4H PRN NG bp over 165 syst 07/21/20 12:00 10/14/20 22:44 Dextrose (Dextrose 50%) 25 ml Q30M PRN IV Hypoglycemia 07/22/20 08:00 10/20/20 07:59 Dextrose (Dextrose 50%) 50 ml Q30M PRN IV Hypoglycemia 07/22/20 08:00 10/20/20 07:59 Docusate Sodium (Colace) 100 mg THREE TIMES A DAY NG 07/21/20 13:00 08/20/20 12:59 07/28/20 09:09 Epoetin Panchito (Epoetin Panchito(ESRD on dialysis)) 4,000 unit THU- SUBQ 07/27/20 21:00 10/25/20 20:59 07/27/20 21:35 Haloperidol Lactate (Haldol) 5 mg Q6H PRN IM Agitation 07/17/20 17:30 08/31/20 17:29 07/18/20 21:34 Insulin Aspart (NovoLOG) Q6HR SUBQ 07/22/20 08:15 10/20/20 11:29 07/28/20 18:02 Insulin Detemir (Levemir) 12 units Q12HR SUBQ 07/24/20 09:00 10/20/20 09:59 07/28/20 20:58 Metoprolol Tartrate (Lopressor) 25 mg EVERY 6 HOURS NG 07/26/20 12:00 10/24/20 11:59 07/29/20 05:32 Pantoprazole (Protonix) 40 mg EVERY 12 HOURS IVP 07/21/20 21:00 08/20/20 20:59 07/29/20 08:56 Piperacillin Sod/ Tazobactam Sod 2.25 gm/Dextrose 55 ml @ 110 mls/hr Q8HR@0200,1000,1800 IV 07/28/20 18:00 08/04/20 17:59 07/29/20 09:42 Quetiapine Fumarate (SEROqueL) 50 mg Q12HR ORAL 07/17/20 14:00 08/31/20 13:59 07/29/20 08:55 Vitamin D (Vitamin D) 5,000 unit DAILY ORAL 07/29/20 09:00 08/28/20 08:59 07/29/20 08:56 Last 24 Hour Vital Signs Date Time Temp Pulse Resp B/P (MAP) Pulse Ox O2 Delivery O2 Flow Rate FiO2 07/29/20 09:00 97 19 127/49 (75) 99 07/29/20 08:00 100 07/29/20 08:00 99.5 96 20 134/46 (75) 100 07/29/20 08:00 Mechanical Ventilator 07/29/20 07:27 92 07/29/20 07:09 97 18 100 07/29/20 07:00 94 13 122/44 (70) 99 07/29/20 06:00 97 13 125/44 (71) 100 07/29/20 05:32 98 124/48 07/29/20 05:00 98 20 124/48 (73) 100 07/29/20 04:00 100 07/29/20 04:00 Mechanical Ventilator 07/29/20 04:00 100 07/29/20 04:00 98.7 100 23 128/48 (74) 100 07/29/20 03:00 97 17 106/45 (65) 100 07/29/20 02:00 98 18 120/40 (66) 100 07/29/20 01:01 104 20 100 07/29/20 01:00 98 21 134/47 (76) 100 07/29/20 00:32 96 129/55 07/29/20 00:00 Mechanical Ventilator 07/29/20 00:00 98.5 98 16 118/52 (74) 100 07/29/20 00:00 101 07/28/20 23:00 106 22 133/52 (79) 100 07/28/20 22:00 102 21 112/41 (64) 100 07/28/20 21:07 Mechanical Ventilator 100 07/28/20 21:00 Mechanical Ventilator 07/28/20 21:00 104 25 137/47 (77) 100 07/28/20 20:50 109 23 100 07/28/20 20:00 98.8 101 22 130/49 (76) 100 07/28/20 20:00 100 07/28/20 19:00 103 24 134/47 (76) 100 07/28/20 18:03 99 27 100 07/28/20 18:02 104 127/54 07/28/20 18:00 105 23 127/54 (78) 100 07/28/20 17:00 97 20 128/46 (73) 100 07/28/20 16:00 101 07/28/20 16:00 Mechanical Ventilator 07/28/20 16:00 100 07/28/20 16:00 98.9 105 22 121/64 (83) 100 07/28/20 15:00 100 18 110/41 (64) 100 07/28/20 14:30 Mechanical Ventilator 100 07/28/20 14:00 92 16 109/42 (64) 100 07/28/20 13:30 104 19 100 07/28/20 13:00 100 22 103/45 (64) 100 07/28/20 12:00 Mechanical Ventilator 07/28/20 12:00 100 07/28/20 12:00 99.1 97 18 104/44 (64) 100 07/28/20 12:00 97 104/44 07/28/20 12:00 88 07/28/20 11:00 103 22 129/51 (77) 99 07/28/20 11:00 Mechanical Ventilator 100 07/28/20 10:00 95 20 101/42 (61) 100 07/28/20 09:00 95 19 94/44 (61) 99 07/28/20 08:00 98.8 99 18 108/48 (68) 99 07/28/20 08:00 Mechanical Ventilator 07/28/20 08:00 100 07/28/20 08:00 102 07/28/20 07:00 99 22 121/55 (77) 99 07/28/20 06:00 103 19 117/47 (70) 98 07/28/20 05:53 111 130/48 07/28/20 05:00 109 19 127/51 (76) 99 07/28/20 04:00 100 07/28/20 04:00 98.5 98 14 104/63 (77) 99 07/28/20 04:00 94 07/28/20 03:00 99 18 111/43 (65) 100 07/28/20 02:00 102 20 113/62 (79) 100 07/28/20 01:00 102 19 112/49 (70) 100 07/28/20 00:00 106 07/28/20 00:00 100 07/28/20 00:00 98.0 102 20 123/45 (71) 100 07/27/20 23:12 108 115/50 07/27/20 23:00 109 20 115/50 (71) 99 07/27/20 22:53 116 27 100 07/27/20 22:00 108 21 113/49 (70) 07/27/20 21:00 117 21 128/57 (80) 07/27/20 20:00 102 07/27/20 20:00 118 24 126/47 (73) 100 07/27/20 20:00 100 07/27/20 19:39 109 23 100 07/27/20 19:00 114 24 116/38 (64) 100 07/27/20 18:00 114 19 128/45 (72) 100 07/27/20 17:40 126 122/46 07/27/20 17:00 117 20 112/45 (67) 100 07/27/20 16:00 98 17 85/31 (49) 99 07/27/20 16:00 100 07/27/20 16:00 99 07/27/20 15:00 106 26 126/49 (74) 97 07/27/20 14:35 98 18 100 07/27/20 14:00 98.2 113 18 120/47 (71) 97 07/27/20 13:00 106 18 124/59 (80) 97 07/27/20 12:19 89 127/63 07/27/20 12:00 97 07/27/20 12:00 98 18 127/63 (84) 98 07/27/20 12:00 100 07/27/20 11:30 98 18 100 07/27/20 11:00 92 19 109/47 (67) 98 Intake and Output 07/28/20 07/29/20 19:00 07:00 Intake Total 250 ml 55 ml Balance 250 ml 55 ml IV Total 100 ml 55 ml Tube Feeding 120 ml Other 30 ml # Bowel Movements 1 4 Labs Test 07/26/20 16:31 07/26/20 20:45 07/27/20 04:55 07/27/20 05:16 POC Whole Blood Glucose 180 MG/DL (74-106) 282 MG/DL (74-106) 211 MG/DL (74-106) White Blood Count 17.3 K/UL (4.8-10.8) Red Blood Count 2.53 M/UL (4.20-5.40) Hemoglobin 8.5 G/DL (12.0-16.0) Hematocrit 26.7 % (37.0-47.0) Mean Corpuscular Volume 106 FL (80-99) Mean Corpuscular Hemoglobin 33.7 PG (27.0-31.0) Mean Corpuscular Hemoglobin Concent 31.9 G/DL (32.0-36.0) Red Cell Distribution Width 15.9 % (11.6-14.8) Platelet Count 189 K/UL (150-450) Mean Platelet Volume 11.2 FL (6.5-10.1) Neutrophils (%) (Auto) % (45.0-75.0) Lymphocytes (%) (Auto) % (20.0-45.0) Monocytes (%) (Auto) % (1.0-10.0) Eosinophils (%) (Auto) % (0.0-3.0) Basophils (%) (Auto) % (0.0-2.0) Differential Total Cells Counted 100 Neutrophils % (Manual) 92 % (45-75) Lymphocytes % (Manual) 4 % (20-45) Monocytes % (Manual) 4 % (1-10) Eosinophils % (Manual) 0 % (0-3) Basophils % (Manual) 0 % (0-2) Band Neutrophils 0 % (0-8) Platelet Estimate Adequate Platelet Morphology Normal Polychromasia 1+ Hypochromasia 1+ Anisocytosis 1+ Sodium Level 142 MMOL/L (136-145) Potassium Level 4.2 MMOL/L (3.5-5.1) Chloride Level 103 MMOL/L (98-107) Carbon Dioxide Level 28 MMOL/L (21-32) Anion Gap 12 mmol/L (5-15) Blood Urea Nitrogen 84 mg/dL (7-18) Creatinine 4.3 MG/DL (0.55-1.30) Estimat Glomerular Filtration Rate 10.2 mL/min (>60) Glucose Level 239 MG/DL (74-106) Uric Acid 4.4 MG/DL (2.6-7.2) Calcium Level 8.9 MG/DL (8.5-10.1) Phosphorus Level 4.7 MG/DL (2.5-4.9) Magnesium Level 2.3 MG/DL (1.8-2.4) Total Bilirubin 1.2 MG/DL (0.2-1.0) Direct Bilirubin 0.7 MG/DL (0.0-0.3) Aspartate Amino Transf (AST/SGOT) 52 U/L (15-37) Alanine Aminotransferase (ALT/SGPT) 23 U/L (12-78) Alkaline Phosphatase 242 U/L (46-116) C-Reactive Protein, Quantitative 20.0 mg/dL (0.00-0.90) Total Protein 6.7 G/DL (6.4-8.2) Albumin 2.3 G/DL (3.4-5.0) Globulin 4.4 g/dL Albumin/Globulin Ratio 0.5 (1.0-2.7) Test 07/27/20 21:24 07/28/20 04:15 07/28/20 05:52 07/28/20 09:17 POC Whole Blood Glucose 190 MG/DL (74-106) 107 MG/DL (74-106) White Blood Count 12.3 K/UL (4.8-10.8) Red Blood Count 2.08 M/UL (4.20-5.40) Hemoglobin 7.0 G/DL (12.0-16.0) Hematocrit 21.4 % (37.0-47.0) Mean Corpuscular Volume 103 FL (80-99) Mean Corpuscular Hemoglobin 33.9 PG (27.0-31.0) Mean Corpuscular Hemoglobin Concent 32.9 G/DL (32.0-36.0) Red Cell Distribution Width 15.5 % (11.6-14.8) Platelet Count 171 K/UL (150-450) Mean Platelet Volume 8.7 FL (6.5-10.1) Neutrophils (%) (Auto) % (45.0-75.0) Lymphocytes (%) (Auto) % (20.0-45.0) Monocytes (%) (Auto) % (1.0-10.0) Eosinophils (%) (Auto) % (0.0-3.0) Basophils (%) (Auto) % (0.0-2.0) Differential Total Cells Counted 100 Neutrophils % (Manual) 93 % (45-75) Lymphocytes % (Manual) 3 % (20-45) Monocytes % (Manual) 4 % (1-10) Eosinophils % (Manual) 0 % (0-3) Basophils % (Manual) 0 % (0-2) Band Neutrophils 0 % (0-8) Platelet Estimate Adequate Platelet Morphology Normal Polychromasia 1+ Hypochromasia 1+ Anisocytosis 1+ Macrocytosis 1+ Sodium Level 143 MMOL/L (136-145) Potassium Level 4.2 MMOL/L (3.5-5.1) Chloride Level 104 MMOL/L (98-107) Carbon Dioxide Level 29 MMOL/L (21-32) Anion Gap 10 mmol/L (5-15) Blood Urea Nitrogen 114 mg/dL (7-18) Creatinine 5.7 MG/DL (0.55-1.30) Estimat Glomerular Filtration Rate 7.3 mL/min (>60) Glucose Level 202 MG/DL (74-106) Calcium Level 8.3 MG/DL (8.5-10.1) Phosphorus Level 5.0 MG/DL (2.5-4.9) Magnesium Level 2.3 MG/DL (1.8-2.4) Total Bilirubin 0.9 MG/DL (0.2-1.0) Aspartate Amino Transf (AST/SGOT) 20 U/L (15-37) Alanine Aminotransferase (ALT/SGPT) 15 U/L (12-78) Alkaline Phosphatase 236 U/L (46-116) C-Reactive Protein, Quantitative 21.1 mg/dL (0.00-0.90) Pro-B-Type Natriuretic Peptide > 43019 pg/mL (0-125) Total Protein 6.1 G/DL (6.4-8.2) Albumin 2.0 G/DL (3.4-5.0) Globulin 4.1 g/dL Albumin/Globulin Ratio 0.5 (1.0-2.7) Test 07/28/20 13:16 07/28/20 15:15 07/28/20 17:27 07/28/20 20:22 POC Whole Blood Glucose 100 MG/DL (74-106) 141 MG/DL (74-106) 143 MG/DL (74-106) Arterial Blood pH 7.638 (7.350-7.450) Arterial Blood Partial Pressure CO2 26.8 mmHg (35.0-45.0) Arterial Blood Partial Pressure O2 145.2 mmHg (75.0-100.0) Arterial Blood HCO3 28.1 mmol/L (22.0-26.0) Arterial Blood Oxygen Saturation 99.7 % (95-100) Arterial Blood Base Excess 6.8 (-2-2) Faheem Test Positive Test 07/29/20 04:00 07/29/20 04:25 07/29/20 04:36 07/29/20 08:00 Stool Occult Blood Positive (NEGATIVE) White Blood Count 12.6 K/UL (4.8-10.8) Red Blood Count 2.46 M/UL (4.20-5.40) Hemoglobin 8.2 G/DL (12.0-16.0) Hematocrit 23.5 % (37.0-47.0) Mean Corpuscular Volume 96 FL (80-99) Mean Corpuscular Hemoglobin 33.2 PG (27.0-31.0) Mean Corpuscular Hemoglobin Concent 34.7 G/DL (32.0-36.0) Red Cell Distribution Width 17.6 % (11.6-14.8) Platelet Count 176 K/UL (150-450) Mean Platelet Volume 9.7 FL (6.5-10.1) Neutrophils (%) (Auto) % (45.0-75.0) Lymphocytes (%) (Auto) % (20.0-45.0) Monocytes (%) (Auto) % (1.0-10.0) Eosinophils (%) (Auto) % (0.0-3.0) Basophils (%) (Auto) % (0.0-2.0) Differential Total Cells Counted 100 Neutrophils % (Manual) 93 % (45-75) Lymphocytes % (Manual) 3 % (20-45) Monocytes % (Manual) 4 % (1-10) Eosinophils % (Manual) 0 % (0-3) Basophils % (Manual) 0 % (0-2) Band Neutrophils 0 % (0-8) Platelet Estimate Adequate Platelet Morphology Normal Hypochromasia 1+ Anisocytosis 1+ Sodium Level 141 MMOL/L (136-145) Potassium Level 3.7 MMOL/L (3.5-5.1) Chloride Level 102 MMOL/L (98-107) Carbon Dioxide Level 36 MMOL/L (21-32) Anion Gap 3 mmol/L (5-15) Blood Urea Nitrogen 63 mg/dL (7-18) Creatinine 3.7 MG/DL (0.55-1.30) Estimat Glomerular Filtration Rate 12.1 mL/min (>60) Glucose Level 89 MG/DL (74-106) Calcium Level 8.4 MG/DL (8.5-10.1) Phosphorus Level 3.9 MG/DL (2.5-4.9) Magnesium Level 2.2 MG/DL (1.8-2.4) Total Bilirubin 1.2 MG/DL (0.2-1.0) Direct Bilirubin 0.8 MG/DL (0.0-0.3) Aspartate Amino Transf (AST/SGOT) 24 U/L (15-37) Alanine Aminotransferase (ALT/SGPT) 13 U/L (12-78) Alkaline Phosphatase 226 U/L (46-116) C-Reactive Protein, Quantitative 20.4 mg/dL (0.00-0.90) Pro-B-Type Natriuretic Peptide > 95370 pg/mL (0-125) Total Protein 6.3 G/DL (6.4-8.2) Albumin 2.1 G/DL (3.4-5.0) Globulin 4.2 g/dL Albumin/Globulin Ratio 0.5 (1.0-2.7) Arterial Blood pH 7.300 (7.350-7.450) Arterial Blood Partial Pressure CO2 70.8 mmHg (35.0-45.0) Arterial Blood Partial Pressure O2 74.0 mmHg (75.0-100.0) Arterial Blood HCO3 74.9 mmol/L (22.0-26.0) Arterial Blood Oxygen Saturation 94.6 % (95-100) Arterial Blood Base Excess 6.4 (-2-2) Faheem Test Positive Test 07/29/20 09:13 POC Whole Blood Glucose 96 MG/DL (74-106) Height (Feet): 5 Height (Inches): 4.00 Weight (Pounds): 180 Objective Physical Exam General Appearance: alert, obese, Chronically Ill Neck: full range of motion Respiratory: wheezing Cardiovascular: edema Gastrointestinal: normal inspection, soft Neurologic: alert, [employer] 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
--- NOTE | 2020-07-29 11:35 | General Progress Note ---
Subjective ROS Limited/Unobtainable: No Allergies: Coded Allergies: No Known Allergies (Unverified , 05/12/17) Objective Last 24 Hour Vital Signs Date Time Temp Pulse Resp B/P (MAP) Pulse Ox O2 Delivery O2 Flow Rate FiO2 07/29/20 10:32 96 17 100 07/29/20 10:00 92 0 93/36 (55) 100 07/29/20 09:45 100 07/29/20 09:00 97 19 127/49 (75) 99 07/29/20 08:00 100 07/29/20 08:00 99.5 96 20 134/46 (75) 100 07/29/20 08:00 Mechanical Ventilator 07/29/20 07:27 92 07/29/20 07:09 97 18 100 07/29/20 07:00 94 13 122/44 (70) 99 07/29/20 06:00 97 13 125/44 (71) 100 07/29/20 05:32 98 124/48 07/29/20 05:00 98 20 124/48 (73) 100 07/29/20 04:00 100 07/29/20 04:00 Mechanical Ventilator 07/29/20 04:00 100 07/29/20 04:00 98.7 100 23 128/48 (74) 100 07/29/20 03:00 97 17 106/45 (65) 100 07/29/20 02:00 98 18 120/40 (66) 100 07/29/20 01:01 104 20 100 07/29/20 01:00 98 21 134/47 (76) 100 07/29/20 00:32 96 129/55 07/29/20 00:00 Mechanical Ventilator 07/29/20 00:00 98.5 98 16 118/52 (74) 100 07/29/20 00:00 101 07/28/20 23:00 106 22 133/52 (79) 100 07/28/20 22:00 102 21 112/41 (64) 100 07/28/20 21:07 Mechanical Ventilator 100 07/28/20 21:00 Mechanical Ventilator 07/28/20 21:00 104 25 137/47 (77) 100 07/28/20 20:50 109 23 100 07/28/20 20:00 98.8 101 22 130/49 (76) 100 07/28/20 20:00 100 07/28/20 19:00 103 24 134/47 (76) 100 07/28/20 18:03 99 27 100 07/28/20 18:02 104 127/54 07/28/20 18:00 105 23 127/54 (78) 100 07/28/20 17:00 97 20 128/46 (73) 100 07/28/20 16:00 101 07/28/20 16:00 Mechanical Ventilator 07/28/20 16:00 100 07/28/20 16:00 98.9 105 22 121/64 (83) 100 07/28/20 15:00 100 18 110/41 (64) 100 07/28/20 14:30 Mechanical Ventilator 100 07/28/20 14:00 92 16 109/42 (64) 100 07/28/20 13:30 104 19 100 07/28/20 13:00 100 22 103/45 (64) 100 07/28/20 12:00 Mechanical Ventilator 07/28/20 12:00 100 07/28/20 12:00 99.1 97 18 104/44 (64) 100 07/28/20 12:00 97 104/44 07/28/20 12:00 88 Intake and Output 07/28/20 07/29/20 19:00 07:00 Intake Total 250 ml 55 ml Balance 250 ml 55 ml IV Total 100 ml 55 ml Tube Feeding 120 ml Other 30 ml # Bowel Movements 1 4 Laboratory Tests 07/28/20 13:16: POC Whole Blood Glucose 100 07/28/20 15:15: Arterial Blood pH 7.638*H, Arterial Blood Partial Pressure CO2 26.8L, Arterial Blood Partial Pressure O2 145.2H, Arterial Blood HCO3 28.1H, Arterial Blood Oxygen Saturation 99.7, Arterial Blood Base Excess 6.8H, Faheem Test Positive 07/28/20 17:27: POC Whole Blood Glucose 141H 07/28/20 20:22: POC Whole Blood Glucose 143H 07/29/20 04:00: Stool Occult Blood Positive 07/29/20 04:25: White Blood Count 12.6H, Red Blood Count 2.46L, Hemoglobin 8.2L, Hematocrit 23.5L, Mean Corpuscular Volume 96, Mean Corpuscular Hemoglobin 33.2H, Mean Corpuscular Hemoglobin Concent 34.7, Red Cell Distribution Width 17.6H, Platelet Count 176, Mean Platelet Volume 9.7, Neutrophils (%) (Auto) , Lymphocytes (%) (Auto) , Monocytes (%) (Auto) , Eosinophils (%) (Auto) , Basophils (%) (Auto) , Differential Total Cells Counted 100, Neutrophils % (Manual) 93H, Lymphocytes % (Manual) 3L, Monocytes % (Manual) 4, Eosinophils % (Manual) 0, Basophils % (Manual) 0, Band Neutrophils 0, Platelet Estimate Adequate, Platelet Morphology Normal, Hypochromasia 1+, Anisocytosis 1+, Sodium Level 141, Potassium Level 3.7, Chloride Level 102, Carbon Dioxide Level 36H, Anion Gap 3L, Blood Urea Nitrogen 63H, Creatinine 3.7H, Estimat Glomerular Filtration Rate 12.1, Glucose Level 89#, Calcium Level 8.4L, Phosphorus Level 3.9, Magnesium Level 2.2, Total Bilirubin 1.2H, Direct Bilirubin 0.8H, Aspartate Amino Transf (AST/SGOT) 24, Alanine Aminotransferase (ALT/SGPT) 13, Alkaline Phosphatase 226H, C-Reactive Protein, Quantitative 20.4H, Pro-B-Type Natriuretic Peptide > 89555N, Total Protein 6.3L, Albumin 2.1L, Globulin 4.2, Albumin/Globulin Ratio 0.5L 07/29/20 04:36: POC Whole Blood Glucose [Pending] 07/29/20 08:00: Arterial Blood pH 7.300L, Arterial Blood Partial Pressure CO2 70.8*H, Arterial Blood Partial Pressure O2 74.0L, Arterial Blood HCO3 74.9*H, Arterial Blood Oxygen Saturation 94.6L, Arterial Blood Base Excess 6.4H, Faheem Test Positive 07/29/20 09:13: POC Whole Blood Glucose 96 Height (Feet): 5 Height (Inches): 4.00 Weight (Pounds): 180 General Appearance: no apparent distress EENT: TMs normal Neck: normal alignment Cardiovascular: normal rate Respiratory/Chest: decreased breath sounds Abdomen: normal bowel sounds, non tender, soft Extremities: non-tender Assessment/Plan Status: progressing, deteriorating Assessment/Plan: Assessment/Plan Status: deteriorating Assessment/Plan: Assessment - Recurrent GI bleed - anemia - s/p multiple endoscopies and colonoscopies this year - resp failure - COPD - COVID PNA - abnormal LFT - presumed COVID related - DM - Poor Px Recommendations - PPI BID - Tube feeds>>>will hold for today given active bleed -transfuse one unit PRBC - follow labs - HD - PRN transfusion - No plans for endoscopy per discussion with family -add imodium for diarrhea Lito Cervantes MD Jul 29, 2020 11:35
--- NOTE | 2020-07-29 12:00 | NUR ---
NURSE NOTES: No signs and symptoms of hypoglycemia.
--- NOTE | 2020-07-29 12:24 | Diagnostic Imaging Report ---
FILM CXR 1 VIEW HISTORY: Follow-up TECHNIQUE: Single view chest x-ray COMPARISON: July 26, 2020 FINDINGS: Enlarged heart with bilateral upper and lower lobe opacities and interstitial prominence with slightly worse appearance compared to the prior exam. Endotracheal tube in place with tip above the cynthia. Enteric tube tip in the region of the stomach. Degenerative changes of the spine with aorta atherosclerosis. IMPRESSION: Enlarged heart with multi lobar infiltrates and interstitial prominence with worsening appearance from the prior exam. Endotracheal tube in place and enteric tube in place.
--- NOTE | 2020-07-29 14:12 | Nephrology Progress Note ---
Assessment/Plan Problem List: (1) Hypertensive kidney disease (2) ESRD (end stage renal disease) (3) Hyperkalemia (4) Suspected 2019 novel coronavirus infection (5) Acute respiratory failure Assessment 70-year-old female with end-stage renal disease Presented with volume overload and hyperkalemia Suspected COVID-19 virus infection Hypertensive emergency Diabetes mellitus CHF Plan July 29: Dialyzed yesterday. Due for dialysis tomorrow. Labs reviewed. Iron panel ordered. Epogen dose increased. Continue per consultants. Vitamin D level pending July 28: Patient is about to get started on dialysis. Labs reviewed. Blood pressure 90 to 100 systolic. Continue per consultants. July 27: Patient dialyzed July 26. Labs reviewed. Status quo. Dialysis again in a.m. July 26: Patient was dialyzed this morning. Labs reviewed. Remains intubated on ventilator. Full code. Tachycardic. Continue per consultants. Per orders. July 25: Patient was dialyzed yesterday. 2 L ultrafiltrate it. Discussed with lead material handler today. Attempts at weaning is being tried. Patient will be dialyzed again tomorrow. In view of ejection fraction of 40 to 45% and low blood pressure will adjust the blood pressure medication dosages and give 0.25 mg digoxin IV once. Continue to monitor renal parameters. July 24: Due for dialysis today. Labs reviewed. Low phosphorus replaced. Continue pulmonary support and ID management. Medication list reviewed. BP medication adjusted. July 23: Dialyzed yesterday. Labs reviewed. ABG noted. Patient hypoxic. Vent setting adjusted by lead material handler. Continue current care. Dialysis tomorrow. July 22: Patient on ventilator requiring positive end expiratory pressure. Labs reviewed. Blood sugar elevated. Levemir insulin ordered. Dialysis today. Continue per consultants. July 21: Patient now in ICU. Intubated on ventilator. Was dialyzed. Blood pressure well maintained. Has NG tube. Will start medication through NG tube and start feeding. Continue per consultants. Hemodialysis as needed. July 20: Patient seen and examined. Discussed with RN. Remains encephalopathic. Poor ABG results. Patient at high risk at this stage. We will transfer patients to ICU for possible airway support. Patient due for dialysis today. Hyperkalemia probably secondary to acidosis. Will arrange for NG tube insertion and give medication through NG tube. July 19: Mental status appears slightly improved. Was dialyzed 2 days in a row. Blood pressure medication adjusted. Next dialysis tomorrow. Continue per consultants. July 18: Patient encephalopathic, was dialyzed yesterday and had 3 L removed. Will order dialysis again today. Continue per ID. Blood pressure medication adjusted. July 17: Stat hemodialysis ordered. Kayexalate for high potassium. Pulmonary support with oxygen or BiPAP as needed Blood pressure support with proper parameters Per orders Subjective ROS Limited/Unobtainable: Yes Objective Objective Last 24 Hour Vital Signs Date Time Temp Pulse Resp B/P (MAP) Pulse Ox O2 Delivery O2 Flow Rate FiO2 07/29/20 12:58 100 123/45 07/29/20 12:00 Mechanical Ventilator 07/29/20 12:00 99.0 100 12 123/45 (71) 99 07/29/20 11:00 93 18 117/44 (68) 100 07/29/20 10:32 96 17 100 07/29/20 10:00 92 0 93/36 (55) 100 07/29/20 09:45 100 07/29/20 09:00 97 19 127/49 (75) 99 07/29/20 08:00 100 07/29/20 08:00 99.5 96 20 134/46 (75) 100 07/29/20 08:00 Mechanical Ventilator 07/29/20 07:27 92 07/29/20 07:09 97 18 100 07/29/20 07:00 94 13 122/44 (70) 99 07/29/20 06:00 97 13 125/44 (71) 100 07/29/20 05:32 98 124/48 07/29/20 05:00 98 20 124/48 (73) 100 07/29/20 04:00 100 07/29/20 04:00 Mechanical Ventilator 07/29/20 04:00 100 07/29/20 04:00 98.7 100 23 128/48 (74) 100 07/29/20 03:00 97 17 106/45 (65) 100 07/29/20 02:00 98 18 120/40 (66) 100 07/29/20 01:01 104 20 100 07/29/20 01:00 98 21 134/47 (76) 100 07/29/20 00:32 96 129/55 07/29/20 00:00 Mechanical Ventilator 07/29/20 00:00 98.5 98 16 118/52 (74) 100 07/29/20 00:00 101 07/28/20 23:00 106 22 133/52 (79) 100 07/28/20 22:00 102 21 112/41 (64) 100 07/28/20 21:07 Mechanical Ventilator 100 07/28/20 21:00 Mechanical Ventilator 07/28/20 21:00 104 25 137/47 (77) 100 07/28/20 20:50 109 23 100 07/28/20 20:00 98.8 101 22 130/49 (76) 100 07/28/20 20:00 100 07/28/20 19:00 103 24 134/47 (76) 100 07/28/20 18:03 99 27 100 07/28/20 18:02 104 127/54 07/28/20 18:00 105 23 127/54 (78) 100 07/28/20 17:00 97 20 128/46 (73) 100 07/28/20 16:00 101 07/28/20 16:00 Mechanical Ventilator 07/28/20 16:00 100 07/28/20 16:00 98.9 105 22 121/64 (83) 100 07/28/20 15:00 100 18 110/41 (64) 100 07/28/20 14:30 Mechanical Ventilator 100 Intake and Output 07/28/20 07/29/20 19:00 07:00 Intake Total 250 ml 55 ml Balance 250 ml 55 ml IV Total 100 ml 55 ml Tube Feeding 120 ml Other 30 ml # Bowel Movements 1 4 Current Medications Medications (Trade) Dose Ordered Sig/Toya Route PRN Reason Start Time Stop Time Status Last Admin Dose Admin Acetaminophen (Tylenol) 650 mg EVERY 6 HOURS PRN NG Mild Pain (Pain Scale 1-3) 07/29/20 09:05 08/28/20 09:04 Acetaminophen (Tylenol) 650 mg EVERY 6 HOURS PRN NG Temp >100.5 07/29/20 09:15 08/28/20 09:14 Albuterol Sulfate (Proventil MDI) 2 puff Q4H PRN INH Shortness of Breath 07/16/20 19:00 10/14/20 18:59 Chlorhexidine Gluconate (Yessi-Hex 2%) 1 applic DAILY@2000 TOPIC 07/21/20 20:00 10/19/20 19:59 07/28/20 20:14 Clonidine HCl (Catapres Tab) 0.1 mg Q4H PRN NG bp over 165 syst 07/21/20 12:00 10/14/20 22:44 Dextrose (Dextrose 50%) 25 ml Q30M PRN IV Hypoglycemia 07/22/20 08:00 10/20/20 07:59 Dextrose (Dextrose 50%) 50 ml Q30M PRN IV Hypoglycemia 07/22/20 08:00 10/20/20 07:59 Docusate Sodium (Colace) 100 mg THREE TIMES A DAY NG 07/21/20 13:00 08/20/20 12:59 07/28/20 09:09 Epoetin Panchito (Epoetin Panchito(ESRD on dialysis)) 4,000 unit SUBQ 07/27/20 21:00 10/25/20 20:59 07/27/20 21:35 Haloperidol Lactate (Haldol) 5 mg Q6H PRN IM Agitation 07/17/20 17:30 08/31/20 17:29 07/18/20 21:34 Insulin Aspart (NovoLOG) Q6HR SUBQ 07/22/20 08:15 10/20/20 11:29 07/28/20 18:02 Insulin Detemir (Levemir) 12 units Q12HR SUBQ 07/24/20 09:00 10/20/20 09:59 07/28/20 20:58 Metoprolol Tartrate (Lopressor) 25 mg EVERY 6 HOURS NG 07/26/20 12:00 10/24/20 11:59 07/29/20 12:58 Pantoprazole (Protonix) 40 mg EVERY 12 HOURS IVP 07/21/20 21:00 08/20/20 20:59 07/29/20 08:56 Piperacillin Sod/ Tazobactam Sod 2.25 gm/Dextrose 55 ml @ 110 mls/hr Q8HR@0200,1000,1800 IV 07/28/20 18:00 08/04/20 17:59 07/29/20 09:42 Quetiapine Fumarate (SEROqueL) 50 mg Q12HR ORAL 07/17/20 14:00 08/31/20 13:59 07/29/20 08:55 Vitamin D (Vitamin D) 5,000 unit DAILY ORAL 07/29/20 09:00 08/28/20 08:59 07/29/20 08:56 Laboratory Tests 07/28/20 15:15: Arterial Blood pH 7.638*H, Arterial Blood Partial Pressure CO2 26.8L, Arterial Blood Partial Pressure O2 145.2H, Arterial Blood HCO3 28.1H, Arterial Blood Oxygen Saturation 99.7, Arterial Blood Base Excess 6.8H, Faheem Test Positive 07/28/20 17:27: POC Whole Blood Glucose 141H 07/28/20 20:22: POC Whole Blood Glucose 143H 07/29/20 04:00: Stool Occult Blood Positive 07/29/20 04:25: White Blood Count 12.6H, Red Blood Count 2.46L, Hemoglobin 8.2L, Hematocrit 23.5L, Mean Corpuscular Volume 96, Mean Corpuscular Hemoglobin 33.2H, Mean Cor puscular Hemoglobin Concent 34.7, Red Cell Distribution Width 17.6H, Platelet Count 176, Mean Platelet Volume 9.7, Neutrophils (%) (Auto) , Lymphocytes (%) (Auto) , Monocytes (%) (Auto) , Eosinophils (%) (Auto) , Basophils (%) (Auto) , Differential Total Cells Counted 100, Neutrophils % (Manual) 93H, Lymphocytes % (Manual) 3L, Monocytes % (Manual) 4, Eosinophils % (Manual) 0, Basophils % (Manual) 0, Band Neutrophils 0, Platelet Estimate Adequate, Platelet Morphology Normal, Hypochromasia 1+, Anisocytosis 1+, Sodium Level 141, Potassium Level 3.7, Chloride Level 102, Carbon Dioxide Level 36H, Anion Gap 3L, Blood Urea Nitrogen 63H, Creatinine 3.7H, Estimat Glomerular Filtration Rate 12.1, Glucose Level 89#, Calcium Level 8.4L, Phosphorus Level 3.9, Magnesium Level 2.2, Total Bilirubin 1.2H, Direct Bilirubin 0.8H, Aspartate Amino Transf (AST/SGOT) 24, Alanine Aminotransferase (ALT/SGPT) 13, Alkaline Phosphatase 226H, C-Reactive Protein, Quantitative 20.4H, Pro-B-Type Natriuretic Peptide > 22470A, Total Protein 6.3L, Albumin 2.1L, Globulin 4.2, Albumin/Globulin Ratio 0.5L, Vitamin D 25-Hydroxy [Pending], 25-Hydroxy Vitamin D2 [Pending], 25-Hydroxy Vitamin D3 [Pending] 12/27/20 04:36: POC Whole Blood Glucose [Pending] 07/29/20 08:00: Arterial Blood pH 7.300L, Arterial Blood Partial Pressure CO2 70.8*H, Arterial Blood Partial Pressure O2 74.0L, Arterial Blood HCO3 74.9*H, Arterial Blood Oxygen Saturation 94.6L, Arterial Blood Base Excess 6.4H, Faheem Test Positive 07/29/20 09:13: POC Whole Blood Glucose 96 Height (Feet): 5 Height (Inches): 4.00 Weight (Pounds): 180 General Appearance: no apparent distress EENT: other - Intubated on ventilator Cardiovascular: tachycardia Respiratory/Chest: decreased breath sounds Abdomen: distended Francis Falk MD Jul 29, 2020 14:12
--- NOTE | 2020-07-29 14:33 | NUR ---
NURSE NOTES: Routine order dialysis for 07/30/[address] Falk. Called and spoke [facility] medical secretary receptionist/Stefan regarding this order.
--- NOTE | 2020-07-29 16:00 | NUR ---
NURSE NOTES: Bed bath provided by 2 staff. 1 bowel movement noted. Dark soft small output.
[2020-07-29] MEDS: Acetaminophen 650mg/20.3ml NG PRN ×2 (17:05→23:16)
--- NOTE | 2020-07-29 18:00 | NUR ---
NURSE NOTES: No signs and symptoms of hypoglycemia.
--- NOTE | 2020-07-29 19:05 | NUR ---
NURSE HAND-OFF REPORT: Latest Vital Signs: Temperature 98.8 , Pulse 110 , B/P 147 /92 , Respiratory Rate 16 , O2 SAT 100 , Nasal Cannula, O2 Flow Rate 3.0 . Vital Sign Comment: EKG Rhythm: Atrial Fibrillation Rhythm change?: N Latest Elizabeth Fall Score: 50 Fall Risk: High Risk Safety Measures: Call light Within Reach, Bed Alarm Zone 1, Side Rails Side Rails x2, Bed position Low and Locked. Fall Precautions: Door Sign Airborne isolation endorsed. Report given to Viridiana Rizvi RN.
--- NOTE | 2020-07-29 19:06 | NUR ---
NURSE NOTES: received pt from Maryellen LITTLE., pt is awake, opens eyes, and AOx0-1 at this time confused. pt has ET tube 7.5 lip line 24cm, AC 16 T 500 Fio2 100% P10. O2sat is at 100% without SOB noted. pt has OGT without feeding at this time. OGT is patent and intact. no BM noted at this time. pt's Left upper arm AV shunt noted, bruit and thrill noted as well. ABD large, soft, and non-tender. bilateral soft wrist restrain noted, pulse noted, skin intact, and no edema noted as well. pt has right femoral TLC, dressing site, intact, clean, and patent. call light within reach. will continue to monitor pt with plan of care. bed at the lowest position, alarmed, and locked.
[2020-07-29] MEDS: Dyna-Hex 2% Top Sol 2oz TOPIC SCH (20:31)
--- NOTE | 2020-07-29 21:00 | NUR ---
NURSE NOTES: pt is awake, agitated. medicine administered pt tolerates well. call light within reach.
--- NOTE | 2020-07-29 22:18 | NUR ---
NURSE NOTES: repositioned pt, oral suctioned. no SOB noted, no Respiratory failure. call light within reach.
--- NOTE | 2020-07-29 22:27 | General Progress Note ---
Subjective ROS Limited/Unobtainable: Yes Allergies: Coded Allergies: No Known Allergies (Unverified , 05/12/17) Objective Last 24 Hour Vital Signs Date Time Temp Pulse Resp B/P (MAP) Pulse Ox O2 Delivery O2 Flow Rate FiO2 07/29/20 22:00 104 15 128/44 (72) 99 07/29/20 21:00 101 5 128/51 (76) 100 07/29/20 20:00 100 07/29/20 20:00 Mechanical Ventilator 07/29/20 20:00 99.0 109 21 132/45 (74) 100 07/29/20 19:53 125 07/29/20 19:00 110 16 147/92 (110) 100 07/29/20 18:32 102 22 100 07/29/20 18:00 106 20 116/57 (76) 99 07/29/20 17:04 114 138/48 07/29/20 17:00 114 31 138/48 (78) 100 07/29/20 16:00 Mechanical Ventilator 07/29/20 16:00 101 07/29/20 16:00 98.8 103 21 136/43 (74) 100 07/29/20 16:00 100 07/29/20 15:05 105 16 100 07/29/20 15:00 98 18 123/45 (71) 99 07/29/20 14:00 106 21 143/44 (77) 100 07/29/20 13:00 97 18 128/55 (79) 100 07/29/20 12:58 100 123/45 07/29/20 12:00 Mechanical Ventilator 07/29/20 12:00 99.0 100 12 123/45 (71) 99 07/29/20 12:00 100 07/29/20 11:33 97 07/29/20 11:00 93 18 117/44 (68) 100 07/29/20 10:32 96 17 100 07/29/20 10:00 92 0 93/36 (55) 100 07/29/20 09:45 100 07/29/20 09:00 97 19 127/49 (75) 99 07/29/20 08:00 100 07/29/20 08:00 99.5 96 20 134/46 (75) 100 07/29/20 08:00 Mechanical Ventilator 07/29/20 07:27 92 07/29/20 07:09 97 18 100 07/29/20 07:00 94 13 122/44 (70) 99 07/29/20 06:00 97 13 125/44 (71) 100 07/29/20 05:32 98 124/48 07/29/20 05:00 98 20 124/48 (73) 100 07/29/20 04:00 100 07/29/20 04:00 Mechanical Ventilator 07/29/20 04:00 100 07/29/20 04:00 98.7 100 23 128/48 (74) 100 07/29/20 03:00 97 17 106/45 (65) 100 07/29/20 02:00 98 18 120/40 (66) 100 07/29/20 01:01 104 20 100 07/29/20 01:00 98 21 134/47 (76) 100 07/29/20 00:32 96 129/55 07/29/20 00:00 Mechanical Ventilator 07/29/20 00:00 98.5 98 16 118/52 (74) 100 07/29/20 00:00 101 07/28/20 23:00 106 22 133/52 (79) 100 Intake and Output 07/28/20 07/29/20 19:00 07:00 Intake Total 250 ml 55 ml Balance 250 ml 55 ml IV Total 100 ml 55 ml Tube Feeding 120 ml Other 30 ml # Bowel Movements 1 4 Laboratory Tests 07/29/20 04:00: Stool Occult Blood Positive 07/29/20 04:25: White Blood Count 12.6H, Red Blood Count 2.46L, Hemoglobin 8.2L, Hematocrit 23.5L, Mean Corpuscular Volume 96, Mean Corpuscular Hemoglobin 33.2H, Mean Corpuscular Hemoglobin Concent 34.7, Red Cell Distribution Width 17.6H, Platelet Count 176, Mean Platelet Volume 9.7, Neutrophils (%) (Auto) , Lymphocytes (%) (Auto) , Monocytes (%) (Auto) , Eosinophils (%) (Auto) , Basophils (%) (Auto) , Differential Total Cells Counted 100, Neutrophils % (Manual) 93H, Lymphocytes % (Manual) 3L, Monocytes % (Manual) 4, Eosinophils % (Manual) 0, Basophils % (Manual) 0, Band Neutrophils 0, Platelet Estimate Adequate, Platelet Morphology Normal, Hypochromasia 1+, Anisocytosis 1+, Sodium Level 141, Potassium Level 3.7, Chloride Level 102, Carbon Dioxide Level 36H, Anion Gap 3L, Blood Urea Nitrogen 63H, Creatinine 3.7H, Estimat Glomerular Filtration Rate 12.1, Glucose Level 89#, Calcium Level 8.4L, Phosphorus Level 3.9, Magnesium Level 2.2, Total Bilirubin 1.2H, Direct Bilirubin 0.8H, Aspartate Amino Transf (AST/SGOT) 24, Alanine Aminotransferase (ALT/SGPT) 13, Alkaline Phosphatase 226H, C-Reactive Protein, Quantitative 20.4H, Pro-B-Type Natriuretic Peptide > 07761G, Total Protein 6.3L, Albumin 2.1L, Globulin 4.2, Albumin/Globulin Ratio 0.5L, Vitamin D 25-Hydroxy [Pending], 25-Hydroxy Vitamin D2 [Pending], 25-Hydroxy Vitamin D3 [Pending] 07/29/20 04:36: POC Whole Blood Glucose [Pending] 07/29/20 08:00: Arterial Blood pH 7.300L, Arterial Blood Partial Pressure CO2 70.8*H, Arterial Blood Partial Pressure O2 74.0L, Arterial Blood HCO3 74.9*H, Arterial Blood Oxygen Saturation 94.6L, Arterial Blood Base Excess 6.4H, Faheem Test Positive 07/29/20 09:13: POC Whole Blood Glucose 96 07/29/20 17:14: POC Whole Blood Glucose 167H Height (Feet): 5 Height (Inches): 4.00 Weight (Pounds): 180 Assessment/Plan Problem List: (1) Pneumonia ICD Codes: J18.9 - Pneumonia, unspecified organism SNOMED: 732328034 (2) Hypertension ICD Codes: I10 - Essential (primary) hypertension SNOMED: 28886894 (3) Renal failure ICD Codes: N19 - Unspecified kidney failure SNOMED: 38092198 (4) Anemia in chronic kidney disease (CKD) ICD Codes: N18.9 - Chronic kidney disease, unspecified; D63.1 - Anemia in chronic kidney disease SNOMED: 904722100 (5) weakness (6) ESRD (end stage renal disease) ICD Codes: N18.6 - End stage renal disease SNOMED: 22857833 (7) Diabetic nephropathy with proteinuria ICD Codes: E11.21 - Type 2 diabetes mellitus with diabetic nephropathy SNOMED: 19680478, 023717212 Status: progressing, deteriorating Assessment/Plan: full oxygen support anemia check lytes niddm htn esrd on hd resp failure niddm covid positive pna Makenna Daniel MD Jul 29, 2020 22:27
[2020-07-30] VITALS (24 sets, daily range): BP systolic 100–156; BP diastolic 39–67
--- NOTE | 2020-07-30 00:15 | NUR ---
NURSE NOTES: repositioned pt, oral care given. pt is sleeping at this time, no SOB noted. call light within reach. will continue to monitor pt.
[2020-07-30] MEDS: NovoLOG Insulin Flexpen SUBQ SCH ×5 (00:52→23:47)
--- NOTE | 2020-07-30 02:10 | NUR ---
NURSE NOTES: pt is awake, restless. repositioned pt. no SOB noted. no residual noted from feeding. call light within reach.
[2020-07-30] MEDS: Piperacillin/Tazobactam 2.25 GM in D5W 55 ML IV SCH ×3 (02:24→17:35)
--- NOTE | 2020-07-30 04:00 | NUR ---
NURSE NOTES: cleaned pt, dark green stool noted. new gown, new blanket, provided. changed whole bed for the pt. call light within reach. will continue to monitor pt wit plan of care.
[2020-07-30] MEDS: Haloperidol 5mg/ml Inj IM PRN (04:19)
--- NOTE | 2020-07-30 04:19 | NUR ---
NURSE NOTES: pt is very agitated, kicking around. attempted to calm pt down, yet pt is unable to clam at this time. so Haldol IM given. call light within reach. Vitals are stable condition at this time. will continue to monitor pt.
[2020-07-30] MEDS: Docusate 100mg/10ml Liq NG SCH ×3 (05:29→22:00)
--- NOTE | 2020-07-30 05:30 | NUR ---
NURSE NOTES: pt is still restless, repositioned pt. call light within reach. no residual in feeding noted.
--- NOTE | 2020-07-30 06:30 | NUR ---
NURSE NOTES: Dr. Daniels at the bed side, ordered rectal tube due to diarrhea. noted. no AM result is up yet. will be waiting.
[2020-07-30 06:49] LABS: HEMATOCRIT 21.8 % (37.0-47.0); HEMOGLOBIN 7.6 G/DL (12.0-16.0); MEAN CORPUSCULAR VOLUME 97 FL (80-99); PLATELET COUNT 160 K/UL (150-450); RED BLOOD COUNT 2.24 M/UL (4.20-5.40); RED CELL DISTRIBUTION WIDTH 16.3 % (11.6-14.8); WHITE BLOOD COUNT 11.1 K/UL (4.8-10.8)
[2020-07-30 06:56] LABS: INR 1.2 (0.9-1.1)
--- NOTE | 2020-07-30 06:56 | Hematology/Onc Progress Note ---
Assessment/Plan Assessment/Plan Assessment/Plan 1. Pancytopenia with hx anemia due to underlying chronic disease. Have reviewed prior workup, ferritin is >1000, covid19++++ --> Continue to closely monitor. --> Transfuse if hgb <7 --> ferritin is >1000 --> give epogen, has been started 3x a week --> as per renal --> monitor for gi bleed, gi consulted --> hgb trend 7.8-->9.3->8.9->>11-->9.5->8.9->8->8.2 --> plt 42-->50-->65-->104-->109-->176 --> ABX zosyn --> smear has been reviewed --> hep and hiv neg 2. Leukopenia likely reactive process v infection v from meds --> hepatitis and hiv prior negative --> neutropenic precautions if ANC <1500 --> trending stable --> imaging reviewed and no hsm / cirrhosis noted --> wbc 2.7-->3.6->>>2->5-->8-->17->12 --> increase in wbc due to steriods --> ANC goal >1500 3. End-stage renal disease, on hemodialysis three times a week. --> renal consulted --> continue hd 4. History of coronary artery disease. --> cards reviewed --> diuresis prn 5. History of anemia due to low B12, low iron --> b12 is currently within normal limits --> reobtain q6mo 6. Dizziness and unsteady gait 7. Covid 19 --> rx per id 8. DVt ppsx with SCDs Greatly appreciate consultation and Selvin RN Subjective HEENT: Denies: no symptoms, eye pain, blurred vision, tearing, double vision, ear pain, ear discharge, nose pain, nose congestion, throat pain, throat swelling, mouth pain, mouth swelling, other Cardiovascular: Denies: no symptoms, chest pain, edema, irregular heart rate, lightheadedness, palpitations, syncope, other Respiratory: Denies: no symptoms, cough, shortness of breath, SOB with excertion, SOB at rest, sputum, wheezing, other Gastrointestinal/Abdominal: Denies: no symptoms, abdomen distended, abdominal pain, black stools, tarry stools, blood in stool, constipated, diarrhea, difficulty swallowing, nausea, poor appetite, poor fluid intake, rectal bleed ing, vomiting, other Genitourinary: Denies: no symptoms, burning, discharge, frequency, flank pain, hematuria, incontinence, pain, urgency, other Endocrine: Denies: no symptoms, excessive sweating, flushing, intolerance to cold, intolerance to heat, increased hunger, increased thirst, increased urine, unexplained weight gain, unexplained weight loss, other Hematologic/Lymphatic: Denies: no symptoms, anemia, easy bleeding, easy bruising, adenopathy, other Allergies: Coded Allergies: No Known Allergies (Unverified , 05/12/17) Subjective 07/19 meds noted, s/p hd, bp has improved, no bleeding, labs reviewed 07/20 labs are noted, no bleeding, meds reviewed, no major changes, hgb 9.5 07/22 remains in the icu, no bleeding, meds reviewed, on nc 07/23 labs noted, no bleeding, in icu, hgb 8.7, plt 90 07/24 is intubated, hgb 11, no bleeding, plt are better, meds reviewed 07/25 remains on zosyn, labs are noted, no bleeding, icu, meds ntoed, s/p hd yesterday with renal 07/26 seen at bedside with Justo Toro, doing HD today, is in the icu, have ordered epo 07/27 black tarry stools overnight, no bleeding, labs reviewed, plt better 07/29 restraints, is agitated, no bleeding, hgb 8.2, improved s/p transfusion 07/30 restraints, is for rectal tube insertion today for diarrhea Objective Objective Current Medications Medications (Trade) Dose Ordered Sig/Toya Route PRN Reason Start Time Stop Time Status Last Admin Dose Admin Acetaminophen (Tylenol) 650 mg EVERY 6 HOURS PRN NG Mild Pain (Pain Scale 1-3) 07/29/20 09:05 08/28/20 09:04 07/29/20 23:16 Acetaminophen (Tylenol) 650 mg EVERY 6 HOURS PRN NG Temp >100.5 07/29/20 09:15 08/28/20 09:14 Albuterol Sulfate (Proventil MDI) 2 puff Q4H PRN INH Shortness of Breath 07/16/20 19:00 10/14/20 18:59 Chlorhexidine Gluconate (Yessi-Hex 2%) 1 applic DAILY@1999 TOPIC 07/21/20 20:00 10/19/20 19:59 07/29/20 20:31 Clonidine HCl (Catapres Tab) 0.1 mg Q4H PRN NG bp over 165 syst 07/21/20 12:00 10/14/20 22:44 Dextrose (Dextrose 50%) 25 ml Q30M PRN IV Hypoglycemia 07/22/20 08:00 10/20/20 07:59 Dextrose (Dextrose 50%) 50 ml Q30M PRN IV Hypoglycemia 07/22/20 08:00 10/20/20 07:59 Docusate Sodium (Colace) 100 mg EVERY 8 HOURS NG 07/29/20 22:00 08/20/20 12:59 Epoetin Panchito (Epoetin Panchito(ESRD on dialysis)) 10,000 unit THU-THU-THU SUBQ 07/30/20 21:00 10/25/20 20:59 Haloperidol Lactate (Haldol) 5 mg Q6H PRN IM Agitation 07/17/20 17:30 08/31/20 17:29 07/30/20 04:19 Insulin Aspart (NovoLOG) Q6HR SUBQ 07/22/20 08:15 10/20/20 11:29 07/30/20 00:52 Insulin Detemir (Levemir) 12 units Q12HR SUBQ 07/24/20 09:00 10/20/20 09:59 07/29/20 21:26 Loperamide HCl (Imodium) 2 mg Q6H PRN NG Diarrhea 07/29/20 15:45 08/28/20 15:44 Lorazepam (Ativan 2mg/ml 1ml) 1 mg Q4H PRN IV For Anxiety 07/30/20 06:37 08/06/20 06:36 Metoprolol Tartrate (Lopressor) 25 mg EVERY 6 HOURS NG 07/26/20 12:00 10/24/20 11:59 07/29/20 23:15 Pantoprazole (Protonix) 40 mg EVERY 12 HOURS IVP 07/21/20 21:00 08/20/20 20:59 07/29/20 20:31 Piperacillin Sod/ Tazobactam Sod 2.25 gm/Dextrose 55 ml @ 110 mls/hr Q8HR@0200,1000,1800 IV 07/28/20 18:00 08/04/20 17:59 07/30/20 02:24 Quetiapine Fumarate (SEROqueL) 50 mg Q12HR ORAL 07/29/20 21:00 09/12/20 20:59 07/29/20 20:31 Vitamin D (Vitamin D) 5,000 unit DAILY ORAL 07/29/20 09:00 08/28/20 08:59 07/29/20 08:56 Last 24 Hour Vital Signs Date Time Temp Pulse Resp B/P (MAP) Pulse Ox O2 Delivery O2 Flow Rate FiO2 07/30/20 06:00 104 19 132/52 (78) 100 07/30/20 05:00 101 19 140/54 (82) 100 07/30/20 04:00 98.5 95 19 112/53 (72) 100 07/30/20 04:00 Mechanical Ventilator 07/30/20 04:00 100 07/30/20 03:30 100 23 100 07/30/20 03:00 96 24 123/63 (83) 100 07/30/20 02:58 91 07/30/20 02:00 95 18 114/44 (67) 07/30/20 01:00 102 26 124/48 (73) 100 07/30/20 00:00 Mechanical Ventilator 07/30/20 00:00 100 07/30/20 00:00 98.3 98 22 122/67 (85) 100 07/29/20 23:21 96 07/29/20 23:15 100 147/29 07/29/20 23:00 100 19 147/29 (68) 98 07/29/20 22:30 95 27 100 07/29/20 22:00 104 15 128/44 (72) 99 07/29/20 21:00 101 5 128/51 (76) 100 07/29/20 20:00 100 07/29/20 20:00 Mechanical Ventilator 07/29/20 20:00 99.0 109 21 132/45 (74) 100 07/29/20 19:53 125 07/29/20 19:00 110 16 147/92 (110) 100 07/29/20 18:32 102 22 100 07/29/20 18:00 106 20 116/57 (76) 99 07/29/20 17:04 114 138/48 07/29/20 17:00 114 31 138/48 (78) 100 07/29/20 16:00 Mechanical Ventilator 07/29/20 16:00 101 07/29/20 16:00 98.8 103 21 136/43 (74) 100 07/29/20 16:00 100 07/29/20 15:05 105 16 100 07/29/20 15:00 98 18 123/45 (71) 99 07/29/20 14:00 106 21 143/44 (77) 100 07/29/20 13:00 97 18 128/55 (79) 100 07/29/20 12:58 100 123/45 07/29/20 12:00 Mechanical Ventilator 07/29/20 12:00 99.0 100 12 123/45 (71) 99 07/29/20 12:00 100 07/29/20 11:33 97 07/29/20 11:00 93 18 117/44 (68) 100 07/29/20 10:32 96 17 100 07/29/20 10:00 92 0 93/36 (55) 100 07/29/20 09:45 100 07/29/20 09:00 97 19 127/49 (75) 99 07/29/20 08:00 100 07/29/20 08:00 99.5 96 20 134/46 (75) 100 07/29/20 08:00 Mechanical Ventilator 07/29/20 07:27 92 07/29/20 07:09 97 18 100 07/29/20 07:00 94 13 122/44 (70) 99 07/29/20 06:00 97 13 125/44 (71) 100 07/29/20 05:32 98 124/48 07/29/20 05:00 98 20 124/48 (73) 100 07/29/20 04:00 100 07/29/20 04:00 Mechanical Ventilator 07/29/20 04:00 100 07/29/20 04:00 98.7 100 23 128/48 (74) 100 07/29/20 03:00 97 17 106/45 (65) 100 07/29/20 02:00 98 18 120/40 (66) 100 07/29/20 01:01 104 20 100 07/29/20 01:00 98 21 134/47 (76) 100 07/29/20 00:32 96 129/55 07/29/20 00:00 Mechanical Ventilator 07/29/20 00:00 98.5 98 16 118/52 (74) 100 07/29/20 00:00 101 07/28/20 23:00 106 22 133/52 (79) 100 07/28/20 22:00 102 21 112/41 (64) 100 07/28/20 21:07 Mechanical Ventilator 100 07/28/20 21:00 Mechanical Ventilator 07/28/20 21:00 104 25 137/47 (77) 100 07/28/20 20:50 109 23 100 07/28/20 20:00 98.8 101 22 130/49 (76) 100 07/28/20 20:00 100 07/28/20 19:00 103 24 134/47 (76) 100 07/28/20 18:03 99 27 100 07/28/20 18:02 104 127/54 07/28/20 18:00 105 23 127/54 (78) 100 07/28/20 17:00 97 20 128/46 (73) 100 07/28/20 16:00 101 07/28/20 16:00 Mechanical Ventilator 07/28/20 16:00 100 07/28/20 16:00 98.9 105 22 121/64 (83) 100 07/28/20 15:00 100 18 110/41 (64) 100 07/28/20 14:30 Mechanical Ventilator 100 07/28/20 14:00 92 16 109/42 (64) 100 07/28/20 13:30 104 19 100 07/28/20 13:00 100 22 103/45 (64) 100 07/28/20 12:00 Mechanical Ventilator 07/28/20 12:00 100 07/28/20 12:00 99.1 97 18 104/44 (64) 100 07/28/20 12:00 97 104/44 07/28/20 12:00 88 07/28/20 11:00 103 22 129/51 (77) 99 07/28/20 11:00 Mechanical Ventilator 100 07/28/20 10:00 95 20 101/42 (61) 100 07/28/20 09:00 95 19 94/44 (61) 99 07/28/20 08:00 98.8 99 18 108/48 (68) 99 07/28/20 08:00 Mechanical Ventilator 07/28/20 08:00 100 07/28/20 08:00 102 07/28/20 07:00 99 22 121/55 (77) 99 Intake and Output 07/29/20 07/30/20 18:59 06:59 Intake Total 165 ml 275 ml Balance 165 ml 275 ml IV Total 165 ml 55 ml Tube Feeding 220 ml # Voids 1 # Bowel Movements 2 6 Labs Test 07/27/20 21:24 07/28/20 04:15 07/28/20 05:52 07/28/20 09:17 POC Whole Blood Glucose 190 MG/DL (74-106) 107 MG/DL (74-106) White Blood Count 12.3 K/UL (4.8-10.8) Red Blood Count 2.08 M/UL (4.20-5.40) Hemoglobin 7.0 G/DL (12.0-16.0) Hematocrit 21.4 % (37.0-47.0) Mean Corpuscular Volume 103 FL (80-99) Mean Corpuscular Hemoglobin 33.9 PG (27.0-31.0) Mean Corpuscular Hemoglobin Concent 32.9 G/DL (32.0-36.0) Red Cell Distribution Width 15.5 % (11.6-14.8) Platelet Count 171 K/UL (150-450) Mean Platelet Volume 8.7 FL (6.5-10.1) Neutrophils (%) (Auto) % (45.0-75.0) Lymphocytes (%) (Auto) % (20.0-45.0) Monocytes (%) (Auto) % (1.0-10.0) Eosinophils (%) (Auto) % (0.0-3.0) Basophils (%) (Auto) % (0.0-2.0) Differential Total Cells Counted 100 Neutrophils % (Manual) 93 % (45-75) Lymphocytes % (Manual) 3 % (20-45) Monocytes % (Manual) 4 % (1-10) Eosinophils % (Manual) 0 % (0-3) Basophils % (Manual) 0 % (0-2) Band Neutrophils 0 % (0-8) Platelet Estimate Adequate Platelet Morphology Normal Polychromasia 1+ Hypochromasia 1+ Anisocytosis 1+ Macrocytosis 1+ Sodium Level 143 MMOL/L (136-145) Potassium Level 4.2 MMOL/L (3.5-5.1) Chloride Level 104 MMOL/L (98-107) Carbon Dioxide Level 29 MMOL/L (21-32) Anion Gap 10 mmol/L (5-15) Blood Urea Nitrogen 114 mg/dL (7-18) Creatinine 5.7 MG/DL (0.55-1.30) Estimat Glomerular Filtration Rate 7.3 mL/min (>60) Glucose Level 202 MG/DL (74-106) Calcium Level 8.3 MG/DL (8.5-10.1) Phosphorus Level 5.0 MG/DL (2.5-4.9) Magnesium Level 2.3 MG/DL (1.8-2.4) Total Bilirubin 0.9 MG/DL (0.2-1.0) Aspartate Amino Transf (AST/SGOT) 20 U/L (15-37) Alanine Aminotransferase (ALT/SGPT) 15 U/L (12-78) Alkaline Phosphatase 236 U/L (46-116) C-Reactive Protein, Quantitative 21.1 mg/dL (0.00-0.90) Pro-B-Type Natriuretic Peptide > 43220 pg/mL (0-125) Total Protein 6.1 G/DL (6.4-8.2) Albumin 2.0 G/DL (3.4-5.0) Globulin 4.1 g/dL Albumin/Globulin Ratio 0.5 (1.0-2.7) Test 07/28/20 13:16 07/28/20 15:15 07/28/20 17:27 07/28/20 20:22 POC Whole Blood Glucose 100 MG/DL (74-106) 141 MG/DL (74-106) 143 MG/DL (74-106) Arterial Blood pH 7.638 (7.350-7.450) Arterial Blood Partial Pressure CO2 26.8 mmHg (35.0-45.0) Arterial Blood Partial Pressure O2 145.2 mmHg (75.0-100.0) Arterial Blood HCO3 28.1 mmol/L (22.0-26.0) Arterial Blood Oxygen Saturation 99.7 % (95-100) Arterial Blood Base Excess 6.8 (-2-2) Faheem Test Positive Test 07/29/20 00:38 07/29/20 04:00 07/29/20 04:25 07/29/20 04:36 Stool Occult Blood Positive (NEGATIVE) White Blood Count 12.6 K/UL (4.8-10.8) Red Blood Count 2.46 M/UL (4.20-5.40) Hemoglobin 8.2 G/DL (12.0-16.0) Hematocrit 23.5 % (37.0-47.0) Mean Corpuscular Volume 96 FL (80-99) Mean Corpuscular Hemoglobin 33.2 PG (27.0-31.0) Mean Corpuscular Hemoglobin Concent 34.7 G/DL (32.0-36.0) Red Cell Distribution Width 17.6 % (11.6-14.8) Platelet Count 176 K/UL (150-450) Mean Platelet Volume 9.7 FL (6.5-10.1) Neutrophils (%) (Auto) % (45.0-75.0) Lymphocytes (%) (Auto) % (20.0-45.0) Monocytes (%) (Auto) % (1.0-10.0) Eosinophils (%) (Auto) % (0.0-3.0) Basophils (%) (Auto) % (0.0-2.0) Differential Total Cells Counted 100 Neutrophils % (Manual) 93 % (45-75) Lymphocytes % (Manual) 3 % (20-45) Monocytes % (Manual) 4 % (1-10) Eosinophils % (Manual) 0 % (0-3) Basophils % (Manual) 0 % (0-2) Band Neutrophils 0 % (0-8) Platelet Estimate Adequate Platelet Morphology Normal Hypochromasia 1+ Anisocytosis 1+ Sodium Level 141 MMOL/L (136-145) Potassium Level 3.7 MMOL/L (3.5-5.1) Chloride Level 102 MMOL/L (98-107) Carbon Dioxide Level 36 MMOL/L (21-32) Anion Gap 3 mmol/L (5-15) Blood Urea Nitrogen 63 mg/dL (7-18) Creatinine 3.7 MG/DL (0.55-1.30) Estimat Glomerular Filtration Rate 12.1 mL/min (>60) Glucose Level 89 MG/DL (74-106) Calcium Level 8.4 MG/DL (8.5-10.1) Phosphorus Level 3.9 MG/DL (2.5-4.9) Magnesium Level 2.2 MG/DL (1.8-2.4) Total Bilirubin 1.2 MG/DL (0.2-1.0) Direct Bilirubin 0.8 MG/DL (0.0-0.3) Aspartate Amino Transf (AST/SGOT) 24 U/L (15-37) Alanine Aminotransferase (ALT/SGPT) 13 U/L (12-78) Alkaline Phosphatase 226 U/L (46-116) C-Reactive Protein, Quantitative 20.4 mg/dL (0.00-0.90) Pro-B-Type Natriuretic Peptide > 38663 pg/mL (0-125) Total Protein 6.3 G/DL (6.4-8.2) Albumin 2.1 G/DL (3.4-5.0) Globulin 4.2 g/dL Albumin/Globulin Ratio 0.5 (1.0-2.7) Test 07/29/20 08:00 07/29/20 09:13 07/29/20 17:14 07/29/20 21:02 Arterial Blood pH 7.300 (7.350-7.450) Arterial Blood Partial Pressure CO2 70.8 mmHg (35.0-45.0) Arterial Blood Partial Pressure O2 74.0 mmHg (75.0-100.0) Arterial Blood HCO3 74.9 mmol/L (22.0-26.0) Arterial Blood Oxygen Saturation 94.6 % (95-100) Arterial Blood Base Excess 6.4 (-2-2) Faheem Test Positive POC Whole Blood Glucose 96 MG/DL (74-106) 167 MG/DL (74-106) Test 07/30/20 05:00 Height (Feet): 5 Height (Inches): 4.00 Weight (Pounds): 180 Objective Physical Exam General Appearance: alert, obese, Chronically Ill Neck: full range of motion Respiratory: wheezing Cardiovascular: edema Gastrointestinal: normal inspection, soft 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
--- NOTE | 2020-07-30 07:15 | NUR ---
NURSE NOTES: Received patient from Effie Valerio RN. patient is awake in bed restless and confused. afib on the monitor. ET 7.5, lip 24cm, vent settings AC 16 TV 500 FiO2 100% PEEP 10. Orogastric tube and tube feeding currently running Nepro at 20ml/hr. bilateral soft restraints on. scheduled for hemodialysis today, left upper arm shunt. rectal tube in place and draining well to gravity. right femoral TLC dry and intact. bed to lowest position and locked. call light within easy reach. will continue plan of care.
--- NOTE | 2020-07-30 07:30 | NUR ---
NURSE HAND-OFF REPORT: Need to Follow: morning Labs, Latest Vital Signs: Temperature 98.5 , Pulse 104 , B/P 132 /52 , Respiratory Rate 19 , O2 SAT 100 , Nasal Cannula, O2 Flow Rate 3.0 . Vital Sign Comment: [stable] EKG Rhythm: Atrial Fibrillation Rhythm change?: N MD Notified?: Roxanne Gatica MD Response: Latest Elizabeth Fall Score: 50 Fall Risk: High Risk Safety Measures: Call light Within Reach, Bed Alarm Zone 1, Side Rails Side Rails x2, Bed position Low and Locked. Fall Precautions: Door Sign Report given to [Branden Jaimes RN.,].
[2020-07-30 07:57] LABS: ALBUMIN/GLOBULIN RATIO 0.5 (1.0-2.7); BILIRUBIN,TOTAL 1.1 MG/DL (0.2-1.0); CALCIUM 8.6 MG/DL (8.5-10.1); CREATININE 5.3 MG/DL (0.55-1.30); POTASSIUM 4.1 MMOL/L (3.5-5.1)
[2020-07-30 08:01] LABS: BILIRUBIN,DIRECT 0.6 MG/DL (0.0-0.3)
[2020-07-30 08:06] LABS: % IRON SATURATION 34 % (15-50); IRON 35 ug/dL (50-175); TOTAL IRON BINDING CAPACITY 104 ug/dL (250-450)
[2020-07-30 08:20] LABS: FERRITIN > 2000 NG/ML (8-388)
[2020-07-30] MEDS: Pantoprazole Inj IVP SCH ×2 (08:48→20:48)
[2020-07-30] MEDS: Vitamin D 1000 units Tab ORAL SCH (08:48)
[2020-07-30] MEDS: Levemir Flexpen SUBQ SCH ×2 (09:00→20:50)
--- NOTE | 2020-07-30 10:00 | NUR ---
NURSE NOTES: patient currently on hemodialysis.
--- NOTE | 2020-07-30 10:25 | Nephrology Progress Note ---
Assessment/Plan Problem List: (1) Hypertensive kidney disease (2) ESRD (end stage renal disease) (3) Hyperkalemia (4) Suspected 2019 novel coronavirus infection (5) Acute respiratory failure Assessment 70-year-old female with end-stage renal disease Presented with volume overload and hyperkalemia Suspected COVID-19 virus infection Hypertensive emergency Diabetes mellitus CHF Plan July 30: Patient on dialysis now. Tolerating well. Labs and medications reviewed. Continue per consultants. Hemoglobin mid sevens. On 10,000 units of Epogen. Transfusion if needed. July 29: Dialyzed yesterday. Due for dialysis tomorrow. Labs reviewed. Iron panel ordered. Epogen dose increased. Continue per consultants. Vitamin D level pending July 28: Patient is about to get started on dialysis. Labs reviewed. Blood pressure 90 to 100 systolic. Continue per consultants. July 27: Patient dialyzed July 26. Labs reviewed. Status quo. Dialysis again in a.m. July 26: Patient was dialyzed this morning. Labs reviewed. Remains intubated on ventilator. Full code. Tachycardic. Continue per consultants. Per orders. July 25: Patient was dialyzed yesterday. 2 L ultrafiltrate it. Discussed with [facility] internship today. Attempts at weaning is being tried. Patient will be dialyzed again tomorrow. In view of ejection fraction of 40 to 45% and low blood pressure will adjust the blood pressure medication dosages and give 0.25 mg digoxin IV once. Continue to monitor renal parameters. July 24: Due for dialysis today. Labs reviewed. Low phosphorus replaced. Continue pulmonary support and ID management. Medication list reviewed. BP medication adjusted. July 23: Dialyzed yesterday. Labs reviewed. ABG noted. Patient hypoxic. Vent setting adjusted by [facility] internship. Continue current care. Dialysis tomorrow. July 22: Patient on ventilator requiring positive end expiratory pressure. Labs reviewed. Blood sugar elevated. Levemir insulin ordered. Dialysis today. Continue per consultants. July 21: Patient now in ICU. Intubated on ventilator. Was dialyzed. Blood pressure well maintained. Has NG tube. Will start medication through NG tube and start feeding. Continue per consultants. Hemodialysis as needed. July 20: Patient seen and examined. Discussed with RN. Remains encep halopathic. Poor ABG results. Patient at high risk at this stage. We will transfer patients to ICU for possible airway support. Patient due for dialysis today. Hyperkalemia probably secondary to acidosis. Will arrange for NG tube insertion and give medication through NG tube. July 19: Mental status appears slightly improved. Was dialyzed 2 days in a row. Blood pressure medication adjusted. Next dialysis tomorrow. Continue per consultants. July 18: Patient encephalopathic, was dialyzed yesterday and had 3 L removed. Will order dialysis again today. Continue per ID. Blood pressure medication adjusted. July 17: Stat hemodialysis ordered. Kayexalate for high potassium. Pulmonary support with oxygen or BiPAP as needed Blood pressure support with proper parameters Per orders Subjective ROS Limited/Unobtainable: Yes Objective Objective Last 24 Hour Vital Signs Date Time Temp Pulse Resp B/P (MAP) Pulse Ox O2 Delivery O2 Flow Rate FiO2 07/30/20 08:00 100 07/30/20 08:00 Mechanical Ventilator 07/30/20 08:00 98.2 99 19 123/50 (74) 100 07/30/20 07:35 107 21 100 07/30/20 07:00 102 22 135/51 (79) 100 07/30/20 06:00 104 19 132/52 (78) 100 07/30/20 05:00 101 19 140/54 (82) 100 07/30/20 04:00 98.5 95 19 112/53 (72) 100 07/30/20 04:00 Mechanical Ventilator 07/30/20 04:00 100 07/30/20 03:30 100 23 100 07/30/20 03:00 96 24 123/63 (83) 100 07/30/20 02:58 91 07/30/20 02:00 95 18 114/44 (67) 07/30/20 01:00 102 26 124/48 (73) 100 07/30/20 00:00 Mechanical Ventilator 07/30/20 00:00 100 07/30/20 00:00 98.3 98 22 122/67 (85) 100 07/29/20 23:21 96 07/29/20 23:15 100 147/29 07/29/20 23:00 100 19 147/29 (68) 98 07/29/20 22:30 95 27 100 07/29/20 22:00 104 15 128/44 (72) 99 07/29/20 21:00 101 5 128/51 (76) 100 07/29/20 20:00 100 07/29/20 20:00 Mechanical Ventilator 07/29/20 20:00 99.0 109 21 132/45 (74) 100 07/29/20 19:53 125 07/29/20 19:00 110 16 147/92 (110) 100 07/29/20 18:32 102 22 100 07/29/20 18:00 106 20 116/57 (76) 99 07/29/20 17:04 114 138/48 07/29/20 17:00 114 31 138/48 (78) 100 07/29/20 16:00 Mechanical Ventilator 07/29/20 16:00 101 07/29/20 16:00 98.8 103 21 136/43 (74) 100 07/29/20 16:00 100 07/29/20 15:05 105 16 100 07/29/20 15:00 98 18 123/45 (71) 99 07/29/20 14:00 106 21 143/44 (77) 100 07/29/20 13:00 97 18 128/55 (79) 100 07/29/20 12:58 100 123/45 07/29/20 12:00 Mechanical Ventilator 07/29/20 12:00 99.0 100 12 123/45 (71) 99 07/29/20 12:00 100 07/29/20 11:33 97 07/29/20 11:00 93 18 117/44 (68) 100 07/29/20 10:32 96 17 100 Intake and Output 07/29/20 07/30/20 19:00 07:00 Intake Total 165 ml 295 ml Output Total 200 ml Balance 165 ml 95 ml IV Total 165 ml 55 ml Tube Feeding 240 ml Stool Total 200 ml # Voids 1 # Bowel Movements 2 6 Current Medications Medications (Trade) Dose Ordered Sig/Toya Route PRN Reason Start Time Stop Time Status Last Admin Dose Admin Acetaminophen (Tylenol) 650 mg EVERY 6 HOURS PRN NG Mild Pain (Pain Scale 1-3) 07/29/20 09:05 08/28/20 09:04 07/29/20 23:16 Acetaminophen (Tylenol) 650 mg EVERY 6 HOURS PRN NG Temp >100.5 07/29/20 09:15 08/28/20 09:14 Albumin Human 100 ml @ 100 mls/hr ONCE IV 07/30/20 09:30 07/30/20 12:00 12/28/20 09:36 Albuterol Sulfate (Proventil MDI) 2 puff Q4H PRN INH Shortness of Breath 07/16/20 19:00 10/14/20 18:59 Chlorhexidine Gluconate (Yessi-Hex 2%) 1 applic DAILY@1999 TOPIC 07/21/20 20:00 10/19/20 19:59 07/29/20 20:31 Clonidine HCl (Catapres Tab) 0.1 mg Q4H PRN NG bp over 165 syst 07/21/20 12:00 10/14/20 22:44 Dextrose (Dextrose 50%) 25 ml Q30M PRN IV Hypoglycemia 07/22/20 08:00 10/20/20 07:59 Dextrose (Dextrose 50%) 50 ml Q30M PRN IV Hypoglycemia 07/22/20 08:00 10/20/20 07:59 Docusate Sodium (Colace) 100 mg EVERY 8 HOURS NG 07/29/20 22:00 08/20/20 12:59 Epoetin Panchito (Epoetin Panchito(ESRD on dialysis)) 10,000 unit THU-THU-THU SUBQ 07/30/20 21:00 10/25/20 20:59 Haloperidol Lactate (Haldol) 5 mg Q6H PRN IM Agitation 07/17/20 17:30 08/31/20 17:29 07/30/20 04:19 Insulin Aspart (NovoLOG) Q6HR SUBQ 07/22/20 08:15 10/20/20 11:29 07/30/20 00:52 Insulin Detemir (Levemir) 12 units Q12HR SUBQ 07/24/20 09:00 10/20/20 09:59 07/29/20 21:26 Loperamide HCl (Imodium) 2 mg Q6H PRN NG Diarrhea 07/29/20 15:45 08/28/20 15:44 Lorazepam (Ativan 2mg/ml 1ml) 1 mg Q4H PRN IV For Anxiety 07/30/20 06:37 08/06/20 06:36 Metoprolol Tartrate (Lopressor) 25 mg EVERY 6 HOURS NG 07/26/20 12:00 10/24/20 11:59 07/29/20 23:15 Pantoprazole (Protonix) 40 mg EVERY 12 HOURS IVP 07/21/20 21:00 08/20/20 20:59 07/30/20 08:48 Piperacillin Sod/ Tazobactam Sod 2.25 gm/Dextrose 55 ml @ 110 mls/hr Q8HR@0200,1000,1800 IV 07/28/20 18:00 08/04/20 17:59 07/30/20 10:08 Quetiapine Fumarate (SEROqueL) 50 mg Q12HR ORAL 07/30/20 21:00 09/13/20 20:59 Vitamin D (Vitamin D) 5,000 unit DAILY ORAL 07/29/20 09:00 08/28/20 08:59 07/30/20 08:48 Laboratory Tests 07/29/20 17:14: POC Whole Blood Glucose 167H 07/29/20 21:02: POC Whole Blood Glucose [Pending] 07/30/20 05:00: White Blood Count 11.1H, Red Blood Count 2.24L, Hemoglobin 7.6L, Hematocrit 21.8L, Mean Corpuscular Volume 97, Mean Corpuscular Hemoglobin 34.0H, Mean Corpuscular Hemoglobin Concent 34.9, Red Cell Distribution Width 16.3H, Platelet Count 160, Mean Platelet Volume 8.9, Neutrophils (%) (Auto) , Lymphocytes (%) (Auto) , Monocytes (%) (Auto) , Eosinophils (%) (Auto) , Basophils (%) (Auto) , Differential Total Cells Counted 100, Neutrophils % (Manual) 94H, Lymphocytes % (Manual) 4L, Monocytes % (Manual) 2, Eosinophils % (Manual) 0, Basophils % (Manual) 0, Band Neutrophils 0, Platelet Estimate Adequate, Platelet Morphology Normal, Hypochromasia 1+, Anisocytosis 1+, Macrocytosis 1+, Prothrombin Time 13.1H, Prothromb Time International Ratio 1.2H, Sodium Level 141, Potassium Level 4.1, Chloride Level 100, Carbon Dioxide Level 32, Anion Gap 9, Blood Urea Nitrogen 92H, Creatinine 5.3H, Estimat Glomerular Filtration Rate 8.0, Glucose Level 115H, Calcium Level 8.6, Phosphorus Level 6.0H, Magnesium Level 2.0, Iron Level 35L, Total Iron Binding Capacity 104L, Percent Iron Saturation 34, Unsaturated Iron Binding 69L, Ferritin > 2000H, Total Bilirubin 1.1H, Direct Bilirubin 0.6H, Aspartate Amino Transf (AST/SGOT) 22, Alanine Aminotransferase (ALT/SGPT) 15, Alkaline Phosphatase 197H, C-Reactive Protein, Quantitative 30.3H , Pro-B-Type Natriuretic Peptide > 54840G, Total Protein 6.2L, Albumin 2.0L, Globulin 4.2, Albumin/Globulin Ratio 0.5L 07/30/20 07:54: Arterial Blood pH 7.371, Arterial Blood Partial Pressure CO2 52.0H, Arterial Blood Partial Pressure O2 149.2H, Arterial Blood HCO3 29.5H, Arterial Blood Oxygen Saturation 98.1, Arterial Blood Base Excess 3.6H, Faheem Test Positive Height (Feet): 5 Height (Inches): 4.00 Weight (Pounds): 180 General Appearance: no apparent distress Cardiovascular: tachycardia Respiratory/Chest: decreased breath sounds Abdomen: distended Francis Falk MD Jul 30, 2020 10:25
--- NOTE | 2020-07-30 11:07 | Infectious Diseases Prog Note ---
Assessment/Plan Assessment/Plan IMPRESSION: COVID-19 disease, Altered mental status and encephalopathy, End-stage renal disease on hemodialysis, COPD, Asthma, Hypertension, Pancytopenia, Diabetes mellitus with hyperglycemia, Systolic heart failure, Aortic stenosis. Hypercapnic, hypoxemic respiratory failure RECOMMENDATION: Finished dexamethasone course Continue Zosyn We will follow up the cultures. Subjective ROS Limited/Unobtainable: Yes Neurologic: Reports: confusion, other - on restraint Allergies: Coded Allergies: No Known Allergies (Unverified , 05/12/17) Objective Last 24 Hour Vital Signs Date Time Temp Pulse Resp B/P (MAP) Pulse Ox O2 Delivery O2 Flow Rate FiO2 07/30/20 08:00 100 07/30/20 08:00 Mechanical Ventilator 07/30/20 08:00 98.2 99 19 123/50 (74) 100 07/30/20 07:35 107 21 100 07/30/20 07:00 102 22 135/51 (79) 100 07/30/20 06:00 104 19 132/52 (78) 100 07/30/20 05:00 101 19 140/54 (82) 100 07/30/20 04:00 98.5 95 19 112/53 (72) 100 07/30/20 04:00 Mechanical Ventilator 07/30/20 04:00 100 07/30/20 03:30 100 23 100 07/30/20 03:00 96 24 123/63 (83) 100 07/30/20 02:58 91 07/30/20 02:00 95 18 114/44 (67) 07/30/20 01:00 102 26 124/48 (73) 100 07/30/20 00:00 Mechanical Ventilator 07/30/20 00:00 100 07/30/20 00:00 98.3 98 22 122/67 (85) 100 07/29/20 23:21 96 07/29/20 23:15 100 147/29 07/29/20 23:00 100 19 147/29 (68) 98 07/29/20 22:30 95 27 100 07/29/20 22:00 104 15 128/44 (72) 99 07/29/20 21:00 101 5 128/51 (76) 100 07/29/20 20:00 100 07/29/20 20:00 Mechanical Ventilator 07/29/20 20:00 99.0 109 21 132/45 (74) 100 07/29/20 19:53 125 07/29/20 19:00 110 16 147/92 (110) 100 07/29/20 18:32 102 22 100 07/29/20 18:00 106 20 116/57 (76) 99 07/29/20 17:04 114 138/48 07/29/20 17:00 114 31 138/48 (78) 100 07/29/20 16:00 Mechanical Ventilator 07/29/20 16:00 101 07/29/20 16:00 98.8 103 21 136/43 (74) 100 07/29/20 16:00 100 07/29/20 15:05 105 16 100 07/29/20 15:00 98 18 123/45 (71) 99 07/29/20 14:00 106 21 143/44 (77) 100 07/29/20 13:00 97 18 128/55 (79) 100 07/29/20 12:58 100 123/45 07/29/20 12:00 Mechanical Ventilator 07/29/20 12:00 99.0 100 12 123/45 (71) 99 07/29/20 12:00 100 07/29/20 11:33 97 Height (Feet): 5 Height (Inches): 4.00 Weight (Pounds): 180 HEENT: other - orally intubated Cardiovascular: tachycardia, other - R femorl line Abdomen: soft, non tender Extremities: no edema Neurologic/Psychiatric: disoriented Laboratory Tests Test 07/29/20 17:14 07/29/20 21:02 07/30/20 05:00 07/30/20 07:54 POC Whole Blood Glucose 167 MG/DL (74-106) H Pending White Blood Count 11.1 K/UL (4.8-10.8) H Red Blood Count 2.24 M/UL (4.20-5.40) L Hemoglobin 7.6 G/DL (12.0-16.0) L Hematocrit 21.8 % (37.0-47.0) L Mean Corpuscular Volume 97 FL (80-99) Mean Corpuscular Hemoglobin 34.0 PG (27.0-31.0) H Mean Corpuscular Hemoglobin Concent 34.9 G/DL (32.0-36.0) Red Cell Distribution Width 16.3 % (11.6-14.8) H Platelet Count 160 K/UL (150-450) Mean Platelet Volume 8.9 FL (6.5-10.1) Neutrophils (%) (Auto) % (45.0-75.0) Lymphocytes (%) (Auto) % (20.0-45.0) Monocytes (%) (Auto) % (1.0-10.0) Eosinophils (%) (Auto) % (0.0-3.0) Basophils (%) (Auto) % (0.0-2.0) Differential Total Cells Counted 100 Neutrophils % (Manual) 94 % (45-75) H Lymphocytes % (Manual) 4 % (20-45) L Monocytes % (Manual) 2 % (1-10) Eosinophils % (Manual) 0 % (0-3) Basophils % (Manual) 0 % (0-2) Band Neutrophils 0 % (0-8) Platelet Estimate Adequate Platelet Morphology Normal Hypochromasia 1+ Anisocytosis 1+ Macrocytosis 1+ Prothrombin Time 13.1 SEC (9.30-11.50) H Prothromb Time International Ratio 1.2 (0.9-1.1) H Sodium Level 141 MMOL/L (136-145) Potassium Level 4.1 MMOL/L (3.5-5.1) Chloride Level 100 MMOL/L (98-107) Carbon Dioxide Level 32 MMOL/L (21-32) Anion Gap 9 mmol/L (5-15) Blood Urea Nitrogen 92 mg/dL (7-18) H Creatinine 5.3 MG/DL (0.55-1.30) H Estimat Glomerular Filtration Rate 8.0 mL/min (>60) Glucose Level 115 MG/DL (74-106) H Calcium Level 8.6 MG/DL (8.5-10.1) Phosphorus Level 6.0 MG/DL (2.5-4.9) H Magnesium Level 2.0 MG/DL (1.8-2.4) Iron Level 35 ug/dL (50-175) L Total Iron Binding Capacity 104 ug/dL (250-450) L Percent Iron Saturation 34 % (15-50) Unsaturated Iron Binding 69 ug/dL (112-346) L Ferritin > 2000 NG/ML (8-388) H Total Bilirubin 1.1 MG/DL (0.2-1.0) H Direct Bilirubin 0.6 MG/DL (0.0-0.3) H Aspartate Amino Transf (AST/SGOT) 22 U/L (15-37) Alanine Aminotransferase (ALT/SGPT) 15 U/L (12-78) Alkaline Phosphatase 197 U/L (46-116) H C-Reactive Protein, Quantitative 30.3 mg/dL (0.00-0.90) H Pro-B-Type Natriuretic Peptide > 06227 pg/mL (0-125) H Total Protein 6.2 G/DL (6.4-8.2) L Albumin 2.0 G/DL (3.4-5.0) L Globulin 4.2 g/dL Albumin/Globulin Ratio 0.5 (1.0-2.7) L Arterial Blood pH 7.371 (7.350-7.450) Arterial Blood Partial Pressure CO2 52.0 mmHg (35.0-45.0) H Arterial Blood Partial Pressure O2 149.2 mmHg (75.0-100.0) H Arterial Blood HCO3 29.5 mmol/L (22.0-26.0) H Arterial Blood Oxygen Saturation 98.1 % (95-100) Arterial Blood Base Excess 3.6 (-2-2) H Faheem Test Positive Current Medications Medications (Trade) Dose Ordered Sig/Toya Route PRN Reason Start Time Stop Time Status Last Admin Dose Admin Acetaminophen (Tylenol) 650 mg EVERY 6 HOURS PRN NG Mild Pain (Pain Scale 1-3) 07/29/20 09:05 08/28/20 09:04 07/29/20 23:16 Acetaminophen (Tylenol) 650 mg EVERY 6 HOURS PRN NG Temp >100.5 07/29/20 09:15 08/28/20 09:14 Albumin Human 100 ml @ 100 mls/hr ONCE IV 07/30/20 09:30 07/30/20 12:00 07/30/20 09:36 Albuterol Sulfate (Proventil MDI) 2 puff Q4H PRN INH Shortness of Breath 07/16/20 19:00 10/14/20 18:59 Chlorhexidine Gluconate (Yessi-Hex 2%) 1 applic DAILY@2000 TOPIC 07/21/20 20:00 10/19/20 19:59 07/29/20 20:31 Clonidine HCl (Catapres Tab) 0.1 mg Q4H PRN NG bp over 165 syst 07/21/20 12:00 10/14/20 22:44 Dextrose (Dextrose 50%) 25 ml Q30M PRN IV Hypoglycemia 07/22/20 08:00 10/20/20 07:59 Dextrose (Dextrose 50%) 50 ml Q30M PRN IV Hypoglycemia 07/22/20 08:00 10/20/20 07:59 Docusate Sodium (Colace) 100 mg EVERY 8 HOURS NG 07/29/20 22:00 08/20/20 12:59 Epoetin Panchito (Epoetin Panchito(ESRD on dialysis)) 10,000 unit THU- SUBQ 07/30/20 21:00 10/25/20 20:59 Haloperidol Lactate (Haldol) 5 mg Q6H PRN IM Agitation 07/17/20 17:30 08/31/20 17:29 07/30/20 04:19 Insulin Aspart (NovoLOG) Q6HR SUBQ 07/22/20 08:15 10/20/20 11:29 07/30/20 00:52 Insulin Detemir (Levemir) 12 units Q12HR SUBQ 07/24/20 09:00 10/20/20 09:59 07/29/20 21:26 Loperamide HCl (Imodium) 2 mg Q6H PRN NG Diarrhea 07/29/20 15:45 08/28/20 15:44 Lorazepam (Ativan 2mg/ml 1ml) 1 mg Q4H PRN IV For Anxiety 07/30/20 06:37 08/06/20 06:36 Metoprolol Tartrate (Lopressor) 25 mg EVERY 6 HOURS NG 07/26/20 12:00 10/24/20 11:59 07/29/20 23:15 Pantoprazole (Protonix) 40 mg EVERY 12 HOURS IVP 07/21/20 21:00 08/20/20 20:59 07/30/20 08:48 Piperacillin Sod/ Tazobactam Sod 2.25 gm/Dextrose 55 ml @ 110 mls/hr Q8HR@0200,1000,1800 IV 07/28/20 18:00 08/04/20 17:59 07/30/20 10:08 Quetiapine Fumarate (SEROqueL) 50 mg Q12HR ORAL 07/30/20 21:00 09/13/20 20:59 Vitamin D (Vitamin D) 5,000 unit DAILY ORAL 07/29/20 09:00 08/28/20 08:59 07/30/20 08:48 Kalin Briseno MD Jul 30, 2020 11:07
--- NOTE | 2020-07-30 11:44 | Pulmonology Progress Note ---
Subjective ROS Limited/Unobtainable: Yes Interval Events: Remains on 100% FiO2, PEEP 10 Constitutional: Reports: other - no fever today HEENT: Repors: no symptoms Respiratory: Reports: no symptoms Cardiovascular: Reports: no symptoms Gastrointestinal/Abdominal: Reports: no symptoms Genitourinary: Reports: no symptoms Allergies: Coded Allergies: No Known Allergies (Unverified , 05/12/17) All Systems: reviewed and negative except above Objective Last 24 Hour Vital Signs Date Time Temp Pulse Resp B/P (MAP) Pulse Ox O2 Delivery O2 Flow Rate FiO2 07/30/20 08:00 100 07/30/20 08:00 94 07/30/20 08:00 Mechanical Ventilator 07/30/20 08:00 98.2 99 19 123/50 (74) 100 07/30/20 07:35 107 21 100 07/30/20 07:00 102 22 135/51 (79) 100 07/30/20 06:00 104 19 132/52 (78) 100 07/30/20 05:00 101 19 140/54 (82) 100 07/30/20 04:00 98.5 95 19 112/53 (72) 100 07/30/20 04:00 Mechanical Ventilator 07/30/20 04:00 100 07/30/20 03:30 100 23 100 07/30/20 03:00 96 24 123/63 (83) 100 07/30/20 02:58 91 07/30/20 02:00 95 18 114/44 (67) 07/30/20 01:00 102 26 124/48 (73) 100 07/30/20 00:00 Mechanical Ventilator 07/30/20 00:00 100 07/30/20 00:00 98.3 98 22 122/67 (85) 100 07/29/20 23:21 96 07/29/20 23:15 100 147/29 07/29/20 23:00 100 19 147/29 (68) 98 07/29/20 22:30 95 27 100 07/29/20 22:00 104 15 128/44 (72) 99 07/29/20 21:00 101 5 128/51 (76) 100 07/29/20 20:00 100 07/29/20 20:00 Mechanical Ventilator 07/29/20 20:00 99.0 109 21 132/45 (74) 100 07/29/20 19:53 125 07/29/20 19:00 110 16 147/92 (110) 100 07/29/20 18:32 102 22 100 07/29/20 18:00 106 20 116/57 (76) 99 07/29/20 17:04 114 138/48 07/29/20 17:00 114 31 138/48 (78) 100 07/29/20 16:00 Mechanical Ventilator 07/29/20 16:00 101 07/29/20 16:00 98.8 103 21 136/43 (74) 100 07/29/20 16:00 100 07/29/20 15:05 105 16 100 07/29/20 15:00 98 18 123/45 (71) 99 07/29/20 14:00 106 21 143/44 (77) 100 07/29/20 13:00 97 18 128/55 (79) 100 07/29/20 12:58 100 123/45 07/29/20 12:00 Mechanical Ventilator 07/29/20 12:00 99.0 100 12 123/45 (71) 99 07/29/20 12:00 100 Intake and Output 07/29/20 07/30/20 19:00 07:00 Intake Total 165 ml 295 ml Output Total 200 ml Balance 165 ml 95 ml IV Total 165 ml 55 ml Tube Feeding 240 ml Stool Total 200 ml # Voids 1 # Bowel Movements 2 6 General Appearance: WD/WN, no acute distress, other - intubation HEENT: normocephalic Respiratory: chest wall non-tender, crackles/rales Cardiovascular: normal rate, regular rhythm Laboratory Tests 07/29/20 17:14: POC Whole Blood Glucose 167H 07/29/20 21:02: POC Whole Blood Glucose [Pending] 07/30/20 05:00: White Blood Count 11.1H, Red Blood Count 2.24L, Hemoglobin 7.6L, Hematocrit 21.8L, Mean Corpuscular Volume 97, Mean Corpuscular Hemoglobin 34.0H, Mean Corpuscular Hemoglobin Concent 34.9, Red Cell Distribution Width 16.3H, Platelet Count 160, Mean Platelet Volume 8.9, Neutrophils (%) (Auto) , Lymphocytes (%) (Auto) , Monocytes (%) (Auto) , Eosinophils (%) (Auto) , Basophils (%) (Auto) , Differential Total Cells Counted 100, Neutrophils % (Manual) 94H, Lymphocytes % (Manual) 4L, Monocytes % (Manual) 2, Eosinophils % (Manual) 0, Basophils % (Manual) 0, Band Neutrophils 0, Platelet Estimate Adequate, Platelet Morphology Normal, Hypochromasia 1+, Anisocytosis 1+, Macrocytosis 1+, Prothrombin Time 13.1H, Prothromb Time International Ratio 1.2H, Sodium Level 141, Potassium Level 4.1, Chloride Level 100, Carbon Dioxide Level 32, Anion Gap 9, Blood Urea Nitrogen 92H, Creatinine 5.3H, Estimat Glomerular Filtration Rate 8.0, Glucose Level 115H, Calcium Level 8.6, Phosphorus Level 6.0H, Magnesium Level 2.0, Iron Level 35L, Total Iron Binding Capacity 104L, Percent Iron Saturation 34, Unsaturated Iron Binding 69L, Ferritin > 2000H, Total Bilirubin 1.1H, Direct Bilirubin 0.6H, Aspartate Amino Transf (AST/SGOT) 22, Alanine Aminotransferase (ALT/SGPT) 15, Alkaline Phosphatase 197H, C-Reactive Protein, Quantitative 30.3H , Pro-B-Type Natriuretic Peptide > 80604P, Total Protein 6.2L, Albumin 2.0L, Globulin 4.2, Albumin/Globulin Ratio 0.5L 07/30/20 07:54: Arterial Blood pH 7.371, Arterial Blood Partial Pressure CO2 52.0H, Arterial Blood Partial Pressure O2 149.2H, Arterial Blood HCO3 29.5H, Arterial Blood Oxygen Saturation 98.1, Arterial Blood Base Excess 3.6H, Faheem Test Positive Current Medications Medications (Trade) Dose Ordered Sig/Toya Route PRN Reason Start Time Stop Time Status Last Admin Dose Admin Acetaminophen (Tylenol) 650 mg EVERY 6 HOURS PRN NG Mild Pain (Pain Scale 1-3) 07/29/20 09:05 08/28/20 09:04 07/29/20 23:16 Acetaminophen (Tylenol) 650 mg EVERY 6 HOURS PRN NG Temp >100.5 07/29/20 09:15 08/28/20 09:14 Albumin Human 100 ml @ 100 mls/hr ONCE IV 07/30/20 09:30 07/30/20 12:00 07/30/20 09:36 Albuterol Sulfate (Proventil MDI) 2 puff Q4H PRN INH Shortness of Breath 07/16/20 19:00 10/14/20 18:59 Chlorhexidine Gluconate (Yessi-Hex 2%) 1 applic DAILY@2000 TOPIC 07/21/20 20:00 10/19/20 19:59 07/29/20 20:31 Clonidine HCl (Catapres Tab) 0.1 mg Q4H PRN NG bp over 165 syst 07/21/20 12:00 10/14/20 22:44 Dextrose (Dextrose 50%) 25 ml Q30M PRN IV Hypoglycemia 07/22/20 08:00 10/20/20 07:59 Dextrose (Dextrose 50%) 50 ml Q30M PRN IV Hypoglycemia 07/22/20 08:00 10/20/20 07:59 Docusate Sodium (Colace) 100 mg EVERY 8 HOURS NG 07/29/20 22:00 08/20/20 12:59 Epoetin Panchito (Epoetin Panchito(ESRD on dialysis)) 10,000 unit THU- SUBQ 07/30/20 21:00 10/25/20 20:59 Haloperidol Lactate (Haldol) 5 mg Q6H PRN IM Agitation 07/17/20 17:30 08/31/20 17:29 07/30/20 04:19 Insulin Aspart (NovoLOG) Q6HR SUBQ 07/22/20 08:15 10/20/20 11:29 07/30/20 00:52 Insulin Detemir (Levemir) 12 units Q12HR SUBQ 07/24/20 09:00 10/20/20 09:59 07/29/20 21:26 Loperamide HCl (Imodium) 2 mg Q6H PRN NG Diarrhea 07/29/20 15:45 08/28/20 15:44 Lorazepam (Ativan 2mg/ml 1ml) 1 mg Q4H PRN IV For Anxiety 07/30/20 06:37 08/06/20 06:36 Metoprolol Tartrate (Lopressor) 25 mg EVERY 6 HOURS NG 07/26/20 12:00 10/24/20 11:59 07/29/20 23:15 Pantoprazole (Protonix) 40 mg EVERY 12 HOURS IVP 07/21/20 21:00 08/20/20 20:59 07/30/20 08:48 Piperacillin Sod/ Tazobactam Sod 2.25 gm/Dextrose 55 ml @ 110 mls/hr Q8HR@0200,1000,1800 IV 07/28/20 18:00 08/04/20 17:59 07/30/20 10:08 Quetiapine Fumarate (SEROqueL) 50 mg Q12HR ORAL 07/30/20 21:00 09/13/20 20:59 Vitamin D (Vitamin D) 5,000 unit DAILY ORAL 07/29/20 09:00 08/28/20 08:59 07/30/20 08:48 Assessment/Plan Assessment/Plan Assessment/Plan 1. COVID-19 pneumonia. 2. COPD 3. Pneumonia 4. Hypertensive emergency. - Blood pressure controlled. 5. Leukocytosis.; improving 6. Anemia. 7. Hyponatremia.; resolved 8. Hyperkalemia.; resolved 9. Hypochloridemia.; resolved 10. Hyperglycemia. 11. ESRD, on dialysis. 12. Respiratory failure; now intubated PLAN Continue O2; currently 100% Vent; AC mode On PEEP now 10 CXR shows almost complete whiteout both lungs Needs more HD ABG [id number] S/p HD Continue steroids Levy Law MD, MD Jul 30, 2020 11:44
--- NOTE | 2020-07-30 12:00 | NUR ---
NURSE NOTES: Dr. Gatica rounded at bedside, aware and acknowledge of patient going in and out of sinus rhythm and afib. no new orders at this time.
--- NOTE | 2020-07-30 12:00 | NUR ---
NURSE NOTES: Lopressor held because patient is currently on hemodialysis
--- NOTE | 2020-07-30 14:00 | NUR ---
NURSE NOTES: patient is awake in bed restless. vital signs stable
--- NOTE | 2020-07-30 14:02 | Cardiac Electrophysiology PN ---
Assessment/Plan Assessment/Plan 1. Accelerated HTN. Better on Lopressor 25 po q 6hr and p.r.n.clonidine. EF 40- 45% 2. Atrial fib with RVR with HR up to 150s. Rate stable on Lopressor 25 q 6 hr and also got Lopressor 10 mg ivp 3. ESRD, on hemodialysis. 4. Hyponatremia, sodium 129. Fluid restriction per Dr. Falk. 5. Volume overload, BNP of more than 35,000 and EF 40-45%. On HD 6. Covid PNA and resp failure on the Vent with 100% Fio2 and PEEP 15 Covid positive 07/11 and 07/17 7. Tarry stool. S/P PRBC today DW RN Subjective Subjective Confused in restraints. In Covid isolation. Intubated on 100% Fio2 and PEEP 10 on HD today Developed atrial fib with RVR 140s. Now HR 70s in atrial fib on Lopressor. S/P PRBC Objective Last 24 Hour Vital Signs Date Time Temp Pulse Resp B/P (MAP) Pulse Ox O2 Delivery O2 Flow Rate FiO2 07/30/20 13:00 110 18 145/55 (85) 98 07/30/20 12:00 107 07/30/20 12:00 98.7 107 23 131/50 (77) 99 07/30/20 12:00 80 07/30/20 12:00 Mechanical Ventilator 07/30/20 11:00 110 22 147/41 (76) 97 07/30/20 10:00 99 19 128/55 (79) 98 07/30/20 09:00 104 17 118/51 (73) 97 07/30/20 08:00 100 07/30/20 08:00 94 07/30/20 08:00 Mechanical Ventilator 07/30/20 08:00 98.2 99 19 123/50 (74) 100 07/30/20 07:35 107 21 100 07/30/20 07:00 102 22 135/51 (79) 100 07/30/20 06:00 104 19 132/52 (78) 100 07/30/20 05:00 101 19 140/54 (82) 100 07/30/20 04:00 98.5 95 19 112/53 (72) 100 07/30/20 04:00 Mechanical Ventilator 07/30/20 04:00 100 07/30/20 03:30 100 23 100 07/30/20 03:00 96 24 123/63 (83) 100 07/30/20 02:58 91 07/30/20 02:00 95 18 114/44 (67) 07/30/20 01:00 102 26 124/48 (73) 100 07/30/20 00:00 Mechanical Ventilator 07/30/20 00:00 100 07/30/20 00:00 98.3 98 22 122/67 (85) 100 07/29/20 23:21 96 07/29/20 23:15 100 147/29 07/29/20 23:00 100 19 147/29 (68) 98 07/29/20 22:30 95 27 100 07/29/20 22:00 104 15 128/44 (72) 99 07/29/20 21:00 101 5 128/51 (76) 100 07/29/20 20:00 100 07/29/20 20:00 Mechanical Ventilator 07/29/20 20:00 99.0 109 21 132/45 (74) 100 07/29/20 19:53 125 07/29/20 19:00 110 16 147/92 (110) 100 07/29/20 18:32 102 22 100 07/29/20 18:00 106 20 116/57 (76) 99 07/29/20 17:04 114 138/48 07/29/20 17:00 114 31 138/48 (78) 100 07/29/20 16:00 Mechanical Ventilator 07/29/20 16:00 101 07/29/20 16:00 98.8 103 21 136/43 (74) 100 07/29/20 16:00 100 07/29/20 15:05 105 16 100 07/29/20 15:00 98 18 123/45 (71) 99 Intake and Output 07/29/20 07/30/20 19:00 07:00 Intake Total 165 ml 295 ml Output Total 200 ml Balance 165 ml 95 ml IV Total 165 ml 55 ml Tube Feeding 240 ml Stool Total 200 ml # Voids 1 # Bowel Movements 2 6 Laboratory Tests Test 07/29/20 17:14 07/29/20 21:02 07/30/20 05:00 07/30/20 07:54 POC Whole Blood Glucose 167 MG/DL (74-106) H Pending White Blood Count 11.1 K/UL (4.8-10.8) H Red Blood Count 2.24 M/UL (4.20-5.40) L Hemoglobin 7.6 G/DL (12.0-16.0) L Hematocrit 21.8 % (37.0-47.0) L Mean Corpuscular Volume 97 FL (80-99) Mean Corpuscular Hemoglobin 34.0 PG (27.0-31.0) H Mean Corpuscular Hemoglobin Concent 34.9 G/DL (32.0-36.0) Red Cell Distribution Width 16.3 % (11.6-14.8) H Platelet Count 160 K/UL (150-450) Mean Platelet Volume 8.9 FL (6.5-10.1) Neutrophils (%) (Auto) % (45.0-75.0) Lymphocytes (%) (Auto) % (20.0-45.0) Monocytes (%) (Auto) % (1.0-10.0) Eosinophils (%) (Auto) % (0.0-3.0) Basophils (%) (Auto) % (0.0-2.0) Differential Total Cells Counted 100 Neutrophils % (Manual) 94 % (45-75) H Lymphocytes % (Manual) 4 % (20-45) L Monocytes % (Manual) 2 % (1-10) Eosinophils % (Manual) 0 % (0-3) Basophils % (Manual) 0 % (0-2) Band Neutrophils 0 % (0-8) Platelet Estimate Adequate Platelet Morphology Normal Hypochromasia 1+ Anisocytosis 1+ Macrocytosis 1+ Prothrombin Time 13.1 SEC (9.30-11.50) H Prothromb Time International Ratio 1.2 (0.9-1.1) H Sodium Level 141 MMOL/L (136-145) Potassium Level 4.1 MMOL/L (3.5-5.1) Chloride Level 100 MMOL/L (98-107) Carbon Dioxide Level 32 MMOL/L (21-32) Anion Gap 9 mmol/L (5-15) Blood Urea Nitrogen 92 mg/dL (7-18) H Creatinine 5.3 MG/DL (0.55-1.30) H Estimat Glomerular Filtration Rate 8.0 mL/min (>60) Glucose Level 115 MG/DL (74-106) H Calcium Level 8.6 MG/DL (8.5-10.1) Phosphorus Level 6.0 MG/DL (2.5-4.9) H Magnesium Level 2.0 MG/DL (1.8-2.4) Iron Level 35 ug/dL (50-175) L Total Iron Binding Capacity 104 ug/dL (250-450) L Percent Iron Saturation 34 % (15-50) Unsaturated Iron Binding 69 ug/dL (112-346) L Ferritin > 2000 NG/ML (8-388) H Total Bilirubin 1.1 MG/DL (0.2-1.0) H Direct Bilirubin 0.6 MG/DL (0.0-0.3) H Aspartate Amino Transf (AST/SGOT) 22 U/L (15-37) Alanine Aminotransferase (ALT/SGPT) 15 U/L (12-78) Alkaline Phosphatase 197 U/L (46-116) H C-Reactive Protein, Quantitative 30.3 mg/dL (0.00-0.90) H Pro-B-Type Natriuretic Peptide > 14355 pg/mL (0-125) H Total Protein 6.2 G/DL (6.4-8.2) L Albumin 2.0 G/DL (3.4-5.0) L Globulin 4.2 g/dL Albumin/Globulin Ratio 0.5 (1.0-2.7) L Arterial Blood pH 7.371 (7.350-7.450) Arterial Blood Partial Pressure CO2 52.0 mmHg (35.0-45.0) H Arterial Blood Partial Pressure O2 149.2 mmHg (75.0-100.0) H Arterial Blood HCO3 29.5 mmol/L (22.0-26.0) H Arterial Blood Oxygen Saturation 98.1 % (95-100) Arterial Blood Base Excess 3.6 (-2-2) H Faheem Test Positive Objective HEAD AND NECK: Orally intubated LUNGS: Coarse rhonchi. CARDIOVASCULAR: Regular S1 and S2 with no gallop or murmur. ABDOMEN: Soft. EXTREMITIES: No pitting edema. Zev Gatica MD Jul 30, 2020 14:02
--- NOTE | 2020-07-30 16:00 | NUR ---
NURSE NOTES: noted patient temp is 99.4. cooling measures applied. will continue to monitor
--- NOTE | 2020-07-30 19:00 | NUR ---
NURSE HAND-OFF REPORT: Latest Vital Signs: Temperature 99.4 , Pulse 114 , B/P 107 /42 , Respiratory Rate 20 , O2 SAT 100 , Nasal Cannula, O2 Flow Rate 3.0 . Vital Sign Comment: stable EKG Rhythm: Atrial Fibrillation Rhythm change?: N Notified?: Roxanne Gatica MD Response: no new orders. continue to monitor Latest Elizabeth Fall Score: 50 Fall Risk: High Risk Safety Measures: Call light Within Reach, Bed Alarm Zone 1, Side Rails Side Rails x2, Bed position Low and Locked. Fall Precautions: Door Sign Report given to SIDNEY Newsome.
--- NOTE | 2020-07-30 19:30 | NUR ---
NURSE NOTES: Received pt in bed, confused, on vent via ETT not showing any signs of distress at present settings. OGT in place with Nepro running at 30cc/hr with no residuals noted. Flexiseal in place and intact. Bilateral soft wrist restraints in place for safety. TLC on right femoral intact. VS stable and pt is A. Fib on the monitor.
[2020-07-30] MEDS: Dyna-Hex 2% Top Sol 2oz TOPIC SCH (20:48)
[2020-07-30] MEDS: Epoetin Alfa-EPBX(ESRD on dialysis)10,000 unit/ml vial SUBQ SCH (20:49)
--- NOTE | 2020-07-30 21:40 | General Progress Note ---
Subjective ROS Limited/Unobtainable: Yes Allergies: Coded Allergies: No Known Allergies (Unverified , 05/12/17) Objective Last 24 Hour Vital Signs Date Time Temp Pulse Resp B/P (MAP) Pulse Ox O2 Delivery O2 Flow Rate FiO2 07/30/20 19:00 114 20 107/42 (63) 100 07/30/20 18:57 100 19 100 Mechanical Ventilator 60 07/30/20 18:56 100 19 60 07/30/20 18:00 111 20 100/41 (60) 99 07/30/20 17:34 114 122/52 07/30/20 17:00 114 18 122/52 (75) 100 07/30/20 16:00 99.4 07/30/20 16:00 99.4 115 21 156/47 (83) 100 07/30/20 16:00 Mechanical Ventilator 07/30/20 16:00 108 07/30/20 16:00 80 07/30/20 15:20 113 27 70 07/30/20 15:00 106 19 142/48 (79) 100 07/30/20 14:00 109 20 149/46 (80) 98 07/30/20 13:00 110 18 145/55 (85) 98 07/30/20 12:00 107 07/30/20 12:00 98.7 107 23 131/50 (77) 99 07/30/20 12:00 80 07/30/20 12:00 Mechanical Ventilator 07/30/20 11:00 110 22 147/41 (76) 97 07/30/20 10:36 113 28 70 07/30/20 10:00 99 19 128/55 (79) 98 07/30/20 09:00 104 17 118/51 (73) 97 07/30/20 08:30 80 07/30/20 08:00 100 07/30/20 08:00 94 07/30/20 08:00 Mechanical Ventilator 07/30/20 08:00 98.2 99 19 123/50 (74) 100 07/30/20 07:35 107 21 100 07/30/20 07:00 102 22 135/51 (79) 100 07/30/20 06:00 104 19 132/52 (78) 100 07/30/20 05:00 101 19 140/54 (82) 100 07/30/20 04:00 98.5 95 19 112/53 (72) 100 07/30/20 04:00 Mechanical Ventilator 07/30/20 04:00 100 07/30/20 03:30 100 23 100 07/30/20 03:00 96 24 123/63 (83) 100 07/30/20 02:58 91 07/30/20 02:00 95 18 114/44 (67) 07/30/20 01:00 102 26 124/48 (73) 100 07/30/20 00:00 Mechanical Ventilator 07/30/20 00:00 100 07/30/20 00:00 98.3 98 22 122/67 (85) 100 07/29/20 23:21 96 07/29/20 23:15 100 147/29 07/29/20 23:00 100 19 147/29 (68) 98 07/29/20 22:30 95 27 100 07/29/20 22:00 104 15 128/44 (72) 99 Intake and Output 07/29/20 07/30/20 19:00 07:00 Intake Total 165 ml 295 ml Output Total 200 ml Balance 165 ml 95 ml IV Total 165 ml 55 ml Tube Feeding 240 ml Stool Total 200 ml # Voids 1 # Bowel Movements 2 6 Laboratory Tests 07/30/20 05:00: White Blood Count 11.1H, Red Blood Count 2.24L, Hemoglobin 7.6L, Hematocrit 21.8L, Mean Corpuscular Volume 97, Mean Corpuscular Hemoglobin 34.0H, Mean Corpuscular Hemoglobin Concent 34.9, Red Cell Distribution Width 16.3H, Platelet Count 160, Mean Platelet Volume 8.9, Neutrophils (%) (Auto) , Lymphocytes (%) (Auto) , Monocytes (%) (Auto) , Eosinophils (%) (Auto) , Basophils (%) (Auto) , Differential Total Cells Counted 100, Neutrophils % (Manual) 94H, Lymphocytes % (Manual) 4L, Monocytes % (Manual) 2, Eosinophils % (Manual) 0, Basophils % (Manual) 0, Band Neutrophils 0, Platelet Estimate Adequate, Platelet Morphology Normal, Hypochromasia 1+, Anisocytosis 1+, Macrocytosis 1+, Prothrombin Time 13.1H, Prothromb Time International Ratio 1.2H, Sodium Level 141, Potassium Level 4.1, Chloride Level 100, Carbon Dioxide Level 32, Anion Gap 9, Blood Urea Nitrogen 92H, Creatinine 5.3H, Estimat Glomerular Filtration Rate 8.0, Glucose Level 115H, Calcium Level 8.6, Phosphorus Level 6.0H, Magnesium Level 2.0, Iron Level 35L, Total Iron Binding Capacity 104L, Percent Iron Saturation 34, Unsaturated Iron Binding 69L, Ferritin > 2000H, Total Bilirubin 1.1H, Direct Bilirubin 0.6H, Aspartate Amino Transf (AST/SGOT) 22, Alanine Aminotransferase (ALT/SGPT) 15, Alkaline Phosphatase 197H, C-Reactive Protein, Quantitative 30.3H , Pro-B-Type Natriuretic Peptide > 42044J, Total Protein 6.2L, Albumin 2.0L, Globulin 4.2, Albumin/Globulin Ratio 0.5L 07/30/20 07:54: Arterial Blood pH 7.371, Arterial Blood Partial Pressure CO2 52.0H, Arterial Blood Partial Pressure O2 149.2H, Arterial Blood HCO3 29.5H, Arterial Blood Oxygen Saturation 98.1, Arterial Blood Base Excess 3.6H, Faheem Test Positive 07/30/20 20:29: POC Whole Blood Glucose 116H Height (Feet): 5 Height (Inches): 4.00 Weight (Pounds): 180 Assessment/Plan Problem List: (1) Pneumonia ICD Codes: J18.9 - Pneumonia, unspecified organism SNOMED: 544896743 (2) Hypertension ICD Codes: I10 - Essential (primary) hypertension SNOMED: 36080535 (3) Renal failure ICD Codes: N19 - Unspecified kidney failure SNOMED: 65225848 (4) Anemia in chronic kidney disease (CKD) ICD Codes: N18.9 - Chronic kidney disease, unspecified; D63.1 - Anemia in chronic kidney disease SNOMED: 610356241 (5) weakness (6) ESRD (end stage renal disease) ICD Codes: N18.6 - End stage renal disease SNOMED: 70763667 (7) Diabetic nephropathy with proteinuria ICD Codes: E11.21 - Type 2 diabetes mellitus with diabetic nephropathy SNOMED: 37100598, 563807169 Status: progressing, deteriorating Assessment/Plan: copd steroid per pulmonary on full respiratory support s/p HD niddm htn esrd on hd resp failure niddm covid positive pna Makenna Daniel MD Jul 30, 2020 21:40
--- NOTE | 2020-07-30 22:26 | General Progress Note ---
Subjective Allergies: Coded Allergies: No Known Allergies (Unverified , 05/12/17) Subjective above noted seen this am during HD no GI bleeding Objective Last 24 Hour Vital Signs Date Time Temp Pulse Resp B/P (MAP) Pulse Ox O2 Delivery O2 Flow Rate FiO2 07/30/20 19:00 114 20 107/42 (63) 100 07/30/20 18:57 100 19 100 Mechanical Ventilator 60 07/30/20 18:56 100 19 60 07/30/20 18:00 111 20 100/41 (60) 99 07/30/20 17:34 114 122/52 07/30/20 17:00 114 18 122/52 (75) 100 07/30/20 16:00 99.4 07/30/20 16:00 99.4 115 21 156/47 (83) 100 07/30/20 16:00 Mechanical Ventilator 07/30/20 16:00 108 07/30/20 16:00 80 07/30/20 15:20 113 27 70 07/30/20 15:00 106 19 142/48 (79) 100 07/30/20 14:00 109 20 149/46 (80) 98 07/30/20 13:00 110 18 145/55 (85) 98 07/30/20 12:00 107 07/30/20 12:00 98.7 107 23 131/50 (77) 99 07/30/20 12:00 80 07/30/20 12:00 Mechanical Ventilator 07/30/20 11:00 110 22 147/41 (76) 97 07/30/20 10:36 113 28 70 07/30/20 10:00 99 19 128/55 (79) 98 07/30/20 09:00 104 17 118/51 (73) 97 07/30/20 08:30 80 07/30/20 08:00 100 07/30/20 08:00 94 07/30/20 08:00 Mechanical Ventilator 07/30/20 08:00 98.2 99 19 123/50 (74) 100 07/30/20 07:35 107 21 100 07/30/20 07:00 102 22 135/51 (79) 100 07/30/20 06:00 104 19 132/52 (78) 100 07/30/20 05:00 101 19 140/54 (82) 100 07/30/20 04:00 98.5 95 19 112/53 (72) 100 07/30/20 04:00 Mechanical Ventilator 07/30/20 04:00 100 07/30/20 03:30 100 23 100 07/30/20 03:00 96 24 123/63 (83) 100 07/30/20 02:58 91 07/30/20 02:00 95 18 114/44 (67) 07/30/20 01:00 102 26 124/48 (73) 100 07/30/20 00:00 Mechanical Ventilator 07/30/20 00:00 100 07/30/20 00:00 98.3 98 22 122/67 (85) 100 07/29/20 23:21 96 07/29/20 23:15 100 147/29 07/29/20 23:00 100 19 147/29 (68) 98 07/29/20 22:30 95 27 100 Intake and Output 07/29/20 07/30/20 19:00 07:00 Intake Total 165 ml 295 ml Output Total 200 ml Balance 165 ml 95 ml IV Total 165 ml 55 ml Tube Feeding 240 ml Stool Total 200 ml # Voids 1 # Bowel Movements 2 6 Laboratory Tests 07/30/20 05:00: White Blood Count 11.1H, Red Blood Count 2.24L, Hemoglobin 7.6L, Hematocrit 21.8L, Mean Corpuscular Volume 97, Mean Corpuscular Hemoglobin 34.0H, Mean Corpuscular Hemoglobin Concent 34.9, Red Cell Distribution Width 16.3H, Platelet Count 160, Mean Platelet Volume 8.9, Neutrophils (%) (Auto) , Lymphocytes (%) (Auto) , Monocytes (%) (Auto) , Eosinophils (%) (Auto) , Basophils (%) (Auto) , Differential Total Cells Counted 100, Neutrophils % (Manual) 94H, Lymphocytes % (Manual) 4L, Monocytes % (Manual) 2, Eosinophils % (Manual) 0, Basophils % (Manual) 0, Band Neutrophils 0, Platelet Estimate Adequate, Platelet Morphology Normal, Hypochromasia 1+, Anisocytosis 1+, Macrocytosis 1+, Prothrombin Time 13.1H, Prothromb Time International Ratio 1.2H, Sodium Level 141, Potassium Level 4.1, Chloride Level 100, Carbon Dioxide Level 32, Anion Gap 9, Blood Urea Nitrogen 92H, Creatinine 5.3H, Estimat Glomerular Filtration Rate 8.0, Glucose Level 115H, Calcium Level 8.6, Phosphorus Level 6.0H, Magnesium Level 2.0, Iron Level 35L, Total Iron Binding Capacity 104L, Percent Iron Saturation 34, Unsaturated Iron Binding 69L, Ferritin > 2000H, Total Bilirubin 1.1H, Direct Bilirubin 0.6H, Aspartate Amino Transf (AST/SGOT) 22, Alanine Aminotransferase (ALT/SGPT) 15, Alkaline Phosphatase 197H, C-Reactive Protein, Quantitative 30.3H , Pro-B-Type Natriuretic Peptide > 48403R, Total Protein 6.2L, Albumin 2.0L, Globulin 4.2, Albumin/Globulin Ratio 0.5L 07/30/20 07:54: Arterial Blood pH 7.371, Arterial Blood Partial Pressure CO2 52.0H, Arterial Blood Partial Pressure O2 149.2H, Arterial Blood HCO3 29.5H, Arterial Blood Oxygen Saturation 98.1, Arterial Blood Base Excess 3.6H, Faheem Test Positive 07/30/20 20:29: POC Whole Blood Glucose 116H Height (Feet): 5 Height (Inches): 4.00 Weight (Pounds): 180 Objective Eledely woman on vent NCAT coarse BS RR abd soft no edema Assessment/Plan Status: progressing, deteriorating Assessment/Plan: Assessment - Recurrent GI bleed - anemia - s/p multiple endoscopies and colonoscopies this year - resp failure - COPD - COVID PNA - abnormal LFT - presumed COVID related - DM - Poor Px Recommendations - PPI BID - Tube feeds - follow labs - HD - PRN transfusion - No plans for endoscopy per discussion with family Ramakrishna Leonard MD Jul 30, 2020 22:26
[2020-07-31] VITALS (30 sets, daily range): BP systolic 88–126; BP diastolic 37–66
--- NOTE | 2020-07-31 | NUR ---
NURSE NOTES: Pt remains stable with stable VS. Pt is noted to move a lot in bed and shifts a lot in position, Blood sugar is 131. Pt remains A. Fib on the monitor.
[2020-07-31] MEDS: Piperacillin/Tazobactam 2.25 GM in D5W 55 ML IV SCH ×3 (01:59→17:29)
--- NOTE | 2020-07-31 04:00 | NUR ---
NURSE NOTES: Pt's condition remains unchanged. VS remain stable. Pt remains A. Fib on the monitor.
[2020-07-31] MEDS: LORazepam Inj 2mg/ml 1ml IV PRN ×2 (04:45→14:35)
[2020-07-31] MEDS: Docusate 100mg/10ml Liq NG SCH ×3 (05:39→22:00)
[2020-07-31] MEDS: NovoLOG Insulin Flexpen SUBQ SCH ×4 (05:40→23:32)
[2020-07-31 05:56] LABS: HEMATOCRIT 19.9 % (37.0-47.0); HEMOGLOBIN 7.6 G/DL (12.0-16.0); MEAN CORPUSCULAR VOLUME 102 FL (80-99); PLATELET COUNT 173 K/UL (150-450); RED BLOOD COUNT 1.96 M/UL (4.20-5.40); RED CELL DISTRIBUTION WIDTH 16.9 % (11.6-14.8); WHITE BLOOD COUNT 11.5 K/UL (4.8-10.8)
[2020-07-31 06:17] LABS: ALBUMIN 2.2 G/DL (3.4-5.0); ALBUMIN/GLOBULIN RATIO 0.5 (1.0-2.7); BILIRUBIN,TOTAL 1.2 MG/DL (0.2-1.0); CALCIUM 8.4 MG/DL (8.5-10.1); CREATININE 3.8 MG/DL (0.55-1.30); PHOSPHORUS 3.1 MG/DL (2.5-4.9); POTASSIUM 3.4 MMOL/L (3.5-5.1)
[2020-07-31 06:21] LABS: BILIRUBIN,DIRECT 0.8 MG/DL (0.0-0.3)
--- NOTE | 2020-07-31 06:34 | Hematology/Onc Progress Note ---
Assessment/Plan Assessment/Plan Assessment/Plan 1. Pancytopenia with hx anemia due to underlying chronic disease. Have reviewed prior workup, ferritin is >1000, covid19++++ --> Continue to closely monitor. --> Transfuse if hgb <7 --> ferritin is >1000 --> give epogen, has been started 3x a week --> as per renal --> monitor for gi bleed, gi consulted --> hgb trend 7.8-->9.3->8.9->>11-->9.5->8.9->8->8.2-->7.6 --> plt 42-->50-->65-->104-->109-->176 --> ABX zosyn --> smear has been reviewed --> hep and hiv neg 2. Leukopenia likely reactive process v infection v from meds --> hepatitis and hiv prior negative --> neutropenic precautions if ANC <1500 --> trending stable --> imaging reviewed and no hsm / cirrhosis noted --> wbc 2.7-->3.6->>>2->5-->8-->17->12-->11 --> increase in wbc due to steriods --> ANC goal >1500 3. End-stage renal disease, on hemodialysis three times a week. --> renal consulted --> continue hd 4. History of coronary artery disease. --> cards reviewed --> diuresis prn 5. History of anemia due to low B12, low iron --> b12 is currently within normal limits --> reobtain q6mo 6. Dizziness and unsteady gait 7. Covid 19 --> rx per id 8. DVt ppsx with SCDs Greatly appreciate consultation and Selvin RN Subjective Allergies: Coded Allergies: No Known Allergies (Unverified , 05/12/17) All Systems: reviewed and negative except above Subjective 07/19 meds noted, s/p hd, bp has improved, no bleeding, labs reviewed 07/20 labs are noted, no bleeding, meds reviewed, no major changes, hgb 9.5 07/22 remains in the icu, no bleeding, meds reviewed, on nc 07/23 labs noted, no bleeding, in icu, hgb 8.7, plt 90 07/24 is intubated, hgb 11, no bleeding, plt are better, meds reviewed 07/25 remains on zosyn, labs are noted, no bleeding, icu, meds ntoed, s/p hd yes terday with renal 07/26 seen at bedside with Justo Toro, doing HD today, is in the icu, have ordered epo 07/27 black tarry stools overnight, no bleeding, labs reviewed, plt better 07/29 restraints, is agitated, no bleeding, hgb 8.2, improved s/p transfusion 07/30 restraints, is for rectal tube insertion today for diarrhea 07/31 hd was done yesterday, labs reviewed, meds noted, for duplex today then scds Objective Objective Current Medications Medications (Trade) Dose Ordered Sig/Toya Route PRN Reason Start Time Stop Time Status Last Admin Dose Admin Acetaminophen (Tylenol) 650 mg EVERY 6 HOURS PRN NG Mild Pain (Pain Scale 1-3) 07/29/20 09:05 08/28/20 09:04 07/29/20 23:16 Acetaminophen (Tylenol) 650 mg EVERY 6 HOURS PRN NG Temp >100.5 07/29/20 09:15 08/28/20 09:14 Chlorhexidine Gluconate (Yessi-Hex 2%) 1 applic DAILY@1999 TOPIC 07/21/20 20:00 10/19/20 19:59 07/30/20 20:48 Clonidine HCl (Catapres Tab) 0.1 mg Q4H PRN NG bp over 165 syst 07/21/20 12:00 10/14/20 22:44 Dextrose (Dextrose 50%) 25 ml Q30M PRN IV Hypoglycemia 07/22/20 08:00 10/20/20 07:59 Dextrose (Dextrose 50%) 50 ml Q30M PRN IV Hypoglycemia 07/22/20 08:00 10/20/20 07:59 Docusate Sodium (Colace) 100 mg EVERY 8 HOURS NG 07/29/20 22:00 08/20/20 12:59 Epoetin Panchito (Epoetin Panchito(ESRD on dialysis)) 10,000 unit THU-WED-THU SUBQ 07/30/20 21:00 10/25/20 20:59 07/30/20 20:49 Haloperidol Lactate (Haldol) 5 mg Q6H PRN IM Agitation 07/17/20 17:30 08/31/20 17:29 07/30/20 04:19 Insulin Aspart (NovoLOG) Q6HR SUBQ 07/22/20 08:15 10/20/20 11:29 07/30/20 23:47 Insulin Detemir (Levemir) 12 units Q12HR SUBQ 07/24/20 09:00 10/20/20 09:59 07/30/20 20:50 Loperamide HCl (Imodium) 2 mg Q6H PRN NG Diarrhea 07/29/20 15:45 08/28/20 15:44 Lorazepam (Ativan 2mg/ml 1ml) 1 mg Q4H PRN IV For Anxiety 07/30/20 06:37 08/06/20 06:36 07/31/20 04:45 Metoprolol Tartrate (Lopressor) 25 mg EVERY 6 HOURS NG 07/26/20 12:00 10/24/20 11:59 07/30/20 23:46 Pantoprazole (Protonix) 40 mg EVERY 12 HOURS IVP 07/21/20 21:00 08/20/20 20:59 07/30/20 20:48 Piperacillin Sod/ Tazobactam Sod 2.25 gm/Dextrose 55 ml @ 110 mls/hr Q8HR@0200,1000,1800 IV 07/28/20 18:00 08/04/20 17:59 07/31/20 01:59 Quetiapine Fumarate (SEROqueL) 50 mg Q12HR ORAL 07/30/20 21:00 09/13/20 20:59 07/30/20 20:49 Vitamin D (Vitamin D) 5,000 unit DAILY ORAL 07/29/20 09:00 08/28/20 08:59 07/30/20 08:48 Last 24 Hour Vital Signs Date Time Temp Pulse Resp B/P (MAP) Pulse Ox O2 Delivery O2 Flow Rate FiO2 07/31/20 06:00 95 19 106/46 (66) 100 07/31/20 05:43 93 95/42 07/31/20 05:15 93 13 110/41 99 07/31/20 05:00 98 20 126/50 (75) 100 07/31/20 04:45 95 21 132/51 100 07/31/20 04:00 Mechanical Ventilator 07/31/20 04:00 98.5 103 19 124/48 (73) 100 07/31/20 04:00 102 07/31/20 04:00 80 07/31/20 03:45 99 22 117/46 (69) 100 07/31/20 03:30 102 19 121/48 (72) 100 07/31/20 03:15 99 15 113/47 (69) 100 07/31/20 03:00 100 19 126/52 (76) 100 07/31/20 02:30 99 18 60 07/31/20 02:00 103 19 118/54 (75) 100 07/31/20 01:00 89 17 98/40 (59) 100 07/31/20 00:56 99 26 60 07/31/20 00:00 99.2 107 15 103/49 (67) 98 07/31/20 00:00 122 07/31/20 00:00 Mechanical Ventilator 07/31/20 00:00 80 07/30/20 23:46 109 117/41 07/30/20 23:00 138 19 121/39 (66) 97 07/30/20 22:00 119 20 114/48 (70) 100 07/30/20 21:00 111 18 122/45 (70) 96 07/30/20 20:00 Mechanical Ventilator 07/30/20 20:00 80 07/30/20 20:00 101.6 121 21 129/54 (79) 99 07/30/20 20:00 118 07/30/20 19:00 114 20 107/42 (63) 100 07/30/20 18:57 100 19 100 Mechanical Ventilator 60 07/30/20 18:56 100 19 60 07/30/20 18:00 111 20 100/41 (60) 99 07/30/20 17:34 114 122/52 07/30/20 17:00 114 18 122/52 (75) 100 07/30/20 16:00 99.4 07/30/20 16:00 99.4 115 21 156/47 (83) 100 07/30/20 16:00 Mechanical Ventilator 07/30/20 16:00 108 07/30/20 16:00 80 07/30/20 15:20 113 27 70 07/30/20 15:00 106 19 142/48 (79) 100 07/30/20 14:00 109 20 149/46 (80) 98 07/30/20 13:00 110 18 145/55 (85) 98 07/30/20 12:00 107 07/30/20 12:00 98.7 107 23 131/50 (77) 99 07/30/20 12:00 80 07/30/20 12:00 Mechanical Ventilator 07/30/20 11:00 110 22 147/41 (76) 97 07/30/20 10:36 113 28 70 07/30/20 10:00 99 19 128/55 (79) 98 07/30/20 09:00 104 17 118/51 (73) 97 07/30/20 08:30 80 07/30/20 08:00 100 07/30/20 08:00 94 07/30/20 08:00 Mechanical Ventilator 07/30/20 08:00 98.2 99 19 123/50 (74) 100 07/30/20 07:35 107 21 100 07/30/20 07:00 102 22 135/51 (79) 100 07/30/20 06:00 104 19 132/52 (78) 100 07/30/20 05:00 101 19 140/54 (82) 100 07/30/20 04:00 98.5 95 19 112/53 (72) 100 07/30/20 04:00 Mechanical Ventilator 07/30/20 04:00 100 07/30/20 03:30 100 23 100 07/30/20 03:00 96 24 123/63 (83) 100 07/30/20 02:58 91 07/30/20 02:00 95 18 114/44 (67) 07/30/20 01:00 102 26 124/48 (73) 100 07/30/20 00:00 Mechanical Ventilator 07/30/20 00:00 100 07/30/20 00:00 98.3 98 22 122/67 (85) 100 07/29/20 23:21 96 07/29/20 23:15 100 147/29 07/29/20 23:00 100 19 147/29 (68) 98 07/29/20 22:30 95 27 100 07/29/20 22:00 104 15 128/44 (72) 99 07/29/20 21:00 101 5 128/51 (76) 100 07/29/20 20:00 100 12/27/20 20:00 Mechanical Ventilator 07/29/20 20:00 99.0 109 21 132/45 (74) 100 07/29/20 19:53 125 07/29/20 19:00 110 16 147/92 (110) 100 07/29/20 18:32 102 22 100 07/29/20 18:00 106 20 116/57 (76) 99 07/29/20 17:04 114 138/48 07/29/20 17:00 114 31 138/48 (78) 100 07/29/20 16:00 Mechanical Ventilator 07/29/20 16:00 101 07/29/20 16:00 98.8 103 21 136/43 (74) 100 07/29/20 16:00 100 07/29/20 15:05 105 16 100 07/29/20 15:00 98 18 123/45 (71) 99 07/29/20 14:00 106 21 143/44 (77) 100 07/29/20 13:00 97 18 128/55 (79) 100 07/29/20 12:58 100 123/45 07/29/20 12:00 Mechanical Ventilator 07/29/20 12:00 99.0 100 12 123/45 (71) 99 07/29/20 12:00 100 07/29/20 11:33 97 07/29/20 11:00 93 18 117/44 (68) 100 07/29/20 10:32 96 17 100 07/29/20 10:00 92 0 93/36 (55) 100 07/29/20 09:45 100 07/29/20 09:00 97 19 127/49 (75) 99 07/29/20 08:00 100 07/29/20 08:00 99.5 96 20 134/46 (75) 100 07/29/20 08:00 Mechanical Ventilator 07/29/20 07:27 92 07/29/20 07:09 97 18 100 07/29/20 07:00 94 13 122/44 (70) 99 Intake and Output 07/30/20 07/31/20 19:00 07:00 Intake Total 555 ml 330 ml Output Total 1030 ml 450 ml Balance -475 ml -120 ml Free Water 40 ml IV Total 220 ml Tube Feeding 295 ml 330 ml Output Urine Total 0 ml Stool Total 30 ml 450 ml Hemodialysis UF 1000 ml Labs Test 12/26/20 09:17 07/28/20 13:16 07/28/20 15:15 07/28/20 17:27 POC Whole Blood Glucose 107 MG/DL (74-106) 100 MG/DL (74-106) 141 MG/DL (74-106) Arterial Blood pH 7.638 (7.350-7.450) Arterial Blood Partial Pressure CO2 26.8 mmHg (35.0-45.0) Arterial Blood Partial Pressure O2 145.2 mmHg (75.0-100.0) Arterial Blood HCO3 28.1 mmol/L (22.0-26.0) Arterial Blood Oxygen Saturation 99.7 % (95-100) Arterial Blood Base Excess 6.8 (-2-2) Faheem Test Positive Test 07/28/20 20:22 07/29/20 00:38 07/29/20 04:00 07/29/20 04:25 POC Whole Blood Glucose 143 MG/DL (74-106) Stool Occult Blood Positive (NEGATIVE) White Blood Count 12.6 K/UL (4.8-10.8) Red Blood Count 2.46 M/UL (4.20-5.40) Hemoglobin 8.2 G/DL (12.0-16.0) Hematocrit 23.5 % (37.0-47.0) Mean Corpuscular Volume 96 FL (80-99) Mean Corpuscular Hemoglobin 33.2 PG (27.0-31.0) Mean Corpuscular Hemoglobin Concent 34.7 G/DL (32.0-36.0) Red Cell Distribution Width 17.6 % (11.6-14.8) Platelet Count 176 K/UL (150-450) Mean Platelet Volume 9.7 FL (6.5-10.1) Neutrophils (%) (Auto) % (45.0-75.0) Lymphocytes (%) (Auto) % (20.0-45.0) Monocytes (%) (Auto) % (1.0-10.0) Eosinophils (%) (Auto) % (0.0-3.0) Basophils (%) (Auto) % (0.0-2.0) Differential Total Cells Counted 100 Neutrophils % (Manual) 93 % (45-75) Lymphocytes % (Manual) 3 % (20-45) Monocytes % (Manual) 4 % (1-10) Eosinophils % (Manual) 0 % (0-3) Basophils % (Manual) 0 % (0-2) Band Neutrophils 0 % (0-8) Platelet Estimate Adequate Platelet Morphology Normal Hypochromasia 1+ Anisocytosis 1+ Sodium Level 141 MMOL/L (136-145) Potassium Level 3.7 MMOL/L (3.5-5.1) Chloride Level 102 MMOL/L (98-107) Carbon Dioxide Level 36 MMOL/L (21-32) Anion Gap 3 mmol/L (5-15) Blood Urea Nitrogen 63 mg/dL (7-18) Creatinine 3.7 MG/DL (0.55-1.30) Estimat Glomerular Filtration Rate 12.1 mL/min (>60) Glucose Level 89 MG/DL (74-106) Calcium Level 8.4 MG/DL (8.5-10.1) Phosphorus Level 3.9 MG/DL (2.5-4.9) Magnesium Level 2.2 MG/DL (1.8-2.4) Total Bilirubin 1.2 MG/DL (0.2-1.0) Direct Bilirubin 0.8 MG/DL (0.0-0.3) Aspartate Amino Transf (AST/SGOT) 24 U/L (15-37) Alanine Aminotransferase (ALT/SGPT) 13 U/L (12-78) Alkaline Phosphatase 226 U/L (46-116) C-Reactive Protein, Quantitative 20.4 mg/dL (0.00-0.90) Pro-B-Type Natriuretic Peptide > 60956 pg/mL (0-125) Total Protein 6.3 G/DL (6.4-8.2) Albumin 2.1 G/DL (3.4-5.0) Globulin 4.2 g/dL Albumin/Globulin Ratio 0.5 (1.0-2.7) Test 07/29/20 04:36 07/29/20 08:00 07/29/20 09:13 07/29/20 17:14 Arterial Blood pH 7.300 (7.350-7.450) Arterial Blood Partial Pressure CO2 70.8 mmHg (35.0-45.0) Arterial Blood Partial Pressure O2 74.0 mmHg (75.0-100.0) Arterial Blood HCO3 74.9 mmol/L (22.0-26.0) Arterial Blood Oxygen Saturation 94.6 % (95-100) Arterial Blood Base Excess 6.4 (-2-2) Faheem Test Positive POC Whole Blood Glucose 96 MG/DL (74-106) 167 MG/DL (74-106) Test 07/29/20 21:02 07/30/20 05:00 07/30/20 07:54 07/30/20 20:29 White Blood Count 11.1 K/UL (4.8-10.8) Red Blood Count 2.24 M/UL (4.20-5.40) Hemoglobin 7.6 G/DL (12.0-16.0) Hematocrit 21.8 % (37.0-47.0) Mean Corpuscular Volume 97 FL (80-99) Mean Corpuscular Hemoglobin 34.0 PG (27.0-31.0) Mean Corpuscular Hemoglobin Concent 34.9 G/DL (32.0-36.0) Red Cell Distribution Width 16.3 % (11.6-14.8) Platelet Count 160 K/UL (150-450) Mean Platelet Volume 8.9 FL (6.5-10.1) Neutrophils (%) (Auto) % (45.0-75.0) Lymphocytes (%) (Auto) % (20.0-45.0) Monocytes (%) (Auto) % (1.0-10.0) Eosinophils (%) (Auto) % (0.0-3.0) Basophils (%) (Auto) % (0.0-2.0) Differential Total Cells Counted 100 Neutrophils % (Manual) 94 % (45-75) Lymphocytes % (Manual) 4 % (20-45) Monocytes % (Manual) 2 % (1-10) Eosinophils % (Manual) 0 % (0-3) Basophils % (Manual) 0 % (0-2) Band Neutrophils 0 % (0-8) Platelet Estimate Adequate Platelet Morphology Normal Hypochromasia 1+ Anisocytosis 1+ Macrocytosis 1+ Prothrombin Time 13.1 SEC (9.30-11.50) Prothromb Time International Ratio 1.2 (0.9-1.1) Sodium Level 141 MMOL/L (136-145) Potassium Level 4.1 MMOL/L (3.5-5.1) Chloride Level 100 MMOL/L (98-107) Carbon Dioxide Level 32 MMOL/L (21-32) Anion Gap 9 mmol/L (5-15) Blood Urea Nitrogen 92 mg/dL (7-18) Creatinine 5.3 MG/DL (0.55-1.30) Estimat Glomerular Filtration Rate 8.0 mL/min (>60) Glucose Level 115 MG/DL (74-106) Calcium Level 8.6 MG/DL (8.5-10.1) Phosphorus Level 6.0 MG/DL (2.5-4.9) Magnesium Level 2.0 MG/DL (1.8-2.4) Iron Level 35 ug/dL (50-175) Total Iron Binding Capacity 104 ug/dL (250-450) Percent Iron Saturation 34 % (15-50) Unsaturated Iron Binding 69 ug/dL (112-346) Ferritin > 2000 NG/ML (8-388) Total Bilirubin 1.1 MG/DL (0.2-1.0) Direct Bilirubin 0.6 MG/DL (0.0-0.3) Aspartate Amino Transf (AST/SGOT) 22 U/L (15-37) Alanine Aminotransferase (ALT/SGPT) 15 U/L (12-78) Alkaline Phosphatase 197 U/L (46-116) C-Reactive Protein, Quantitative 30.3 mg/dL (0.00-0.90) Pro-B-Type Natriuretic Peptide > 68293 pg/mL (0-125) Total Protein 6.2 G/DL (6.4-8.2) Albumin 2.0 G/DL (3.4-5.0) Globulin 4.2 g/dL Albumin/Globulin Ratio 0.5 (1.0-2.7) Arterial Blood pH 7.371 (7.350-7.450) Arterial Blood Partial Pressure CO2 52.0 mmHg (35.0-45.0) Arterial Blood Partial Pressure O2 149.2 mmHg (75.0-100.0) Arterial Blood HCO3 29.5 mmol/L (22.0-26.0) Arterial Blood Oxygen Saturation 98.1 % (95-100) Arterial Blood Base Excess 3.6 (-2-2) Faheem Test Positive POC Whole Blood Glucose 116 MG/DL (74-106) Test 07/31/20 04:00 White Blood Count 11.5 K/UL (4.8-10.8) Red Blood Count 1.96 M/UL (4.20-5.40) Hemoglobin 7.6 G/DL (12.0-16.0) Hematocrit 19.9 % (37.0-47.0) Mean Corpuscular Volume 102 FL (80-99) Mean Corpuscular Hemoglobin 38.6 PG (27.0-31.0) Mean Corpuscular Hemoglobin Concent 38.0 G/DL (32.0-36.0) Red Cell Distribution Width 16.9 % (11.6-14.8) Platelet Count 173 K/UL (150-450) Mean Platelet Volume 8.2 FL (6.5-10.1) Neutrophils (%) (Auto) % (45.0-75.0) Lymphocytes (%) (Auto) % (20.0-45.0) Monocytes (%) (Auto) % (1.0-10.0) Eosinophils (%) (Auto) % (0.0-3.0) Basophils (%) (Auto) % (0.0-2.0) Sodium Level 142 MMOL/L (136-145) Potassium Level 3.4 MMOL/L (3.5-5.1) Chloride Level 101 MMOL/L (98-107) Carbon Dioxide Level 36 MMOL/L (21-32) Anion Gap 5 mmol/L (5-15) Blood Urea Nitrogen 50 mg/dL (7-18) Creatinine 3.8 MG/DL (0.55-1.30) Estimat Glomerular Filtration Rate 11.7 mL/min (>60) Glucose Level 140 MG/DL (74-106) Calcium Level 8.4 MG/DL (8.5-10.1) Phosphorus Level 3.1 MG/DL (2.5-4.9) Magnesium Level 1.9 MG/DL (1.8-2.4) Total Bilirubin 1.2 MG/DL (0.2-1.0) Direct Bilirubin 0.8 MG/DL (0.0-0.3) Aspartate Amino Transf (AST/SGOT) 46 U/L (15-37) Alanine Aminotransferase (ALT/SGPT) 21 U/L (12-78) Alkaline Phosphatase 305 U/L (46-116) C-Reactive Protein, Quantitative 30.4 mg/dL (0.00-0.90) Total Protein 6.6 G/DL (6.4-8.2) Albumin 2.2 G/DL (3.4-5.0) Globulin 4.4 g/dL Albumin/Globulin Ratio 0.5 (1.0-2.7) Height (Feet): 5 Height (Inches): 4.00 Weight (Pounds): 180 Objective Physical Exam General Appearance: alert, obese, Chronically Ill Neck: full range of motion Respiratory: wheezing Cardiovascular: edema Gastrointestinal: normal inspection, soft 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
--- NOTE | 2020-07-31 07:30 | NUR ---
NURSE HAND-OFF REPORT: Latest Vital Signs: Temperature 98.5 , Pulse 96 , B/P 124 /49 , Respiratory Rate 20 , O2 SAT 100 , Nasal Cannula, O2 Flow Rate 3.0 . Vital Sign Comment: stable EKG Rhythm: Atrial Fibrillation Rhythm change?: N Notified?: Roxanne Gatica MD Response: Latest Elizabeth Fall Score: 50 Fall Risk: High Risk Safety Measures: Call light Within Reach, Bed Alarm Zone 1, Side Rails Side Rails x2, Bed position Low and Locked. Fall Precautions: Door Sign Report given to SIDNEY Gunn.
--- NOTE | 2020-07-31 07:40 | NUR ---
NURSE NOTES: LATE ENTRY: RECEIVED REPORT FROM MIEKL Ramsey PT IN BED. AFIB ON MONITOR , BP STABLE. FEBRILE AT 102.3 AX. TEMP. NONVERBAL. BILATERAL RADIAL PULSES PRESENT. CAP REFILL <3SEC. HOT TO TOUCH. SKIN MOIST. PT INTUBATED 7.5, 24CM AT LIP. VENT SETTINGS: AC 16, VT 500, 45%FI02, PEEP 10. SECRETIONS MINIMAL. BILATERAL LUNG SOUNDS DIMINISHED. DIAL SECRETIONS. OGT, PATENT. TUBE FEEDING, NEPRO AT 30ML/HR. RECTAL TUBE IN PLACE. DRAINING DARK GREEN LIQUID STOOL. ABDOMEN LARGE, TENDER. BOWEL SOUNDS ACTIVE IN ALL QUADRANTS. OLIGURIC. IV ACCESS RT FEMORAL TLC. TKO. BILATERAL SOFT WRIST RESTRAINTS IN PLACE. ROM AND CIRCULATION CHECK. BED LOCKED, IN LOW POSITION. SIDE RAILS X2. AIRBOURNE ISOLATION. WILL CONTINUE TO MONITOR PT.
--- NOTE | 2020-07-31 08:49 | Infectious Diseases Prog Note ---
Assessment/Plan Assessment/Plan IMPRESSION: COVID-19 disease, Altered mental status and encephalopathy, End-stage renal disease on hemodialysis, COPD, Asthma, Hypertension, Pancytopenia, Diabetes mellitus with hyperglycemia, Systolic heart failure, Aortic stenosis. Hypercapnic, hypoxemic respiratory failure RECOMMENDATION: Finished dexamethasone course Continue Zosyn Blood culture from femoral line Start on Vancomycin Subjective ROS Limited/Unobtainable: Yes Constitutional: Reports: fever, other - Jt=939.6 last night Neurologic: Reports: confusion, other - on restraint Allergies: Coded Allergies: No Known Allergies (Unverified , 05/12/17) Objective Last 24 Hour Vital Signs Date Time Temp Pulse Resp B/P (MAP) Pulse Ox O2 Delivery O2 Flow Rate FiO2 07/31/20 07:00 96 20 124/49 (74) 100 07/31/20 06:35 93 20 45 07/31/20 06:00 95 19 106/46 (66) 100 07/31/20 05:43 93 95/42 07/31/20 05:15 93 13 110/41 99 07/31/20 05:00 98 20 126/50 (75) 100 07/31/20 04:45 95 21 132/51 100 07/31/20 04:00 Mechanical Ventilator 07/31/20 04:00 98.5 103 19 124/48 (73) 100 07/31/20 04:00 102 07/31/20 04:00 80 07/31/20 03:45 99 22 117/46 (69) 100 07/31/20 03:30 102 19 121/48 (72) 100 07/31/20 03:15 99 15 113/47 (69) 100 07/31/20 03:00 100 19 126/52 (76) 100 07/31/20 02:30 99 18 60 07/31/20 02:00 103 19 118/54 (75) 100 07/31/20 01:00 89 17 98/40 (59) 100 07/31/20 00:56 99 26 60 07/31/20 00:00 99.2 107 15 103/49 (67) 98 07/31/20 00:00 122 07/31/20 00:00 Mechanical Ventilator 07/31/20 00:00 80 07/30/20 23:46 109 117/41 07/30/20 23:00 138 19 121/39 (66) 97 07/30/20 22:00 119 20 114/48 (70) 100 07/30/20 21:00 111 18 122/45 (70) 96 07/30/20 20:00 Mechanical Ventilator 07/30/20 20:00 80 07/30/20 20:00 101.6 121 21 129/54 (79) 99 07/30/20 20:00 118 07/30/20 19:00 114 20 107/42 (63) 100 07/30/20 18:57 100 19 100 Mechanical Ventilator 60 07/30/20 18:56 100 19 60 07/30/20 18:00 111 20 100/41 (60) 99 07/30/20 17:34 114 122/52 07/30/20 17:00 114 18 122/52 (75) 100 07/30/20 16:00 99.4 07/30/20 16:00 99.4 115 21 156/47 (83) 100 07/30/20 16:00 Mechanical Ventilator 07/30/20 16:00 108 07/30/20 16:00 80 07/30/20 15:20 113 27 70 07/30/20 15:00 106 19 142/48 (79) 100 07/30/20 14:00 109 20 149/46 (80) 98 07/30/20 13:00 110 18 145/55 (85) 98 07/30/20 12:00 107 07/30/20 12:00 98.7 107 23 131/50 (77) 99 07/30/20 12:00 80 07/30/20 12:00 Mechanical Ventilator 07/30/20 11:00 110 22 147/41 (76) 97 07/30/20 10:36 113 28 70 07/30/20 10:00 99 19 128/55 (79) 98 07/30/20 09:00 104 17 118/51 (73) 97 Height (Feet): 5 Height (Inches): 4.00 Weight (Pounds): 180 HEENT: other - orally intubated Cardiovascular: normal rate, other - femoral line Abdomen: soft, non tender Extremities: no edema Neurologic/Psychiatric: aphasia Laboratory Tests Test 07/30/20 20:29 07/31/20 04:00 POC Whole Blood Glucose 116 MG/DL (74-106) H White Blood Count 11.5 K/UL (4.8-10.8) H Red Blood Count 1.96 M/UL (4.20-5.40) L Hemoglobin 7.6 G/DL (12.0-16.0) L Hematocrit 19.9 % (37.0-47.0) L Mean Corpuscular Volume 102 FL (80-99) H Mean Corpuscular Hemoglobin 38.6 PG (27.0-31.0) H Mean Corpuscular Hemoglobin Concent 38.0 G/DL (32.0-36.0) H Red Cell Distribution Width 16.9 % (11.6-14.8) H Platelet Count 173 K/UL (150-450) Mean Platelet Volume 8.2 FL (6.5-10.1) Neutrophils (%) (Auto) % (45.0-75.0) Lymphocytes (%) (Auto) % (20.0-45.0) Monocytes (%) (Auto) % (1.0-10.0) Eosinophils (%) (Auto) % (0.0-3.0) Basophils (%) (Auto) % (0.0-2.0) Differential Total Cells Counted 100 Neutrophils % (Manual) 94 % (45-75) H Lymphocytes % (Manual) 2 % (20-45) L Monocytes % (Manual) 3 % (1-10) Eosinophils % (Manual) 1 % (0-3) Basophils % (Manual) 0 % (0-2) Band Neutrophils 0 % (0-8) Platelet Estimate Adequate Platelet Morphology Normal Polychromasia 1+ Hypochromasia 1+ Anisocytosis 1+ Sodium Level 142 MMOL/L (136-145) Potassium Level 3.4 MMOL/L (3.5-5.1) L Chloride Level 101 MMOL/L (98-107) Carbon Dioxide Level 36 MMOL/L (21-32) H Anion Gap 5 mmol/L (5-15) Blood Urea Nitrogen 50 mg/dL (7-18) H Creatinine 3.8 MG/DL (0.55-1.30) H Estimat Glomerular Filtration Rate 11.7 mL/min (>60) Glucose Level 140 MG/DL (74-106) H Calcium Level 8.4 MG/DL (8.5-10.1) L Phosphorus Level 3.1 MG/DL (2.5-4.9) Magnesium Level 1.9 MG/DL (1.8-2.4) Total Bilirubin 1.2 MG/DL (0.2-1.0) H Direct Bilirubin 0.8 MG/DL (0.0-0.3) H Aspartate Amino Transf (AST/SGOT) 46 U/L (15-37) H Alanine Aminotransferase (ALT/SGPT) 21 U/L (12-78) Alkaline Phosphatase 305 U/L (46-116) H C-Reactive Protein, Quantitative 30.4 mg/dL (0.00-0.90) H Total Protein 6.6 G/DL (6.4-8.2) Albumin 2.2 G/DL (3.4-5.0) L Globulin 4.4 g/dL Albumin/Globulin Ratio 0.5 (1.0-2.7) L Current Medications Medications (Trade) Dose Ordered Sig/Toya Route PRN Reason Start Time Stop Time Status Last Admin Dose Admin Acetaminophen (Tylenol) 650 mg EVERY 6 HOURS PRN NG Mild Pain (Pain Scale 1-3) 07/29/20 09:05 08/28/20 09:04 07/29/20 23:16 Acetaminophen (Tylenol) 650 mg EVERY 6 HOURS PRN NG Temp >100.5 07/29/20 09:15 08/28/20 09:14 Chlorhexidine Gluconate (Yessi-Hex 2%) 1 applic DAILY@1999 TOPIC 07/21/20 20:00 10/19/20 19:59 07/30/20 20:48 Clonidine HCl (Catapres Tab) 0.1 mg Q4H PRN NG bp over 165 syst 07/21/20 12:00 10/14/20 22:44 Dextrose (Dextrose 50%) 25 ml Q30M PRN IV Hypoglycemia 07/22/20 08:00 10/20/20 07:59 Dextrose (Dextrose 50%) 50 ml Q30M PRN IV Hypoglycemia 07/22/20 08:00 10/20/20 07:59 Docusate Sodium (Colace) 100 mg EVERY 8 HOURS NG 07/29/20 22:00 08/20/20 12:59 Epoetin Panchito (Epoetin Panchito(ESRD on dialysis)) 10,000 unit [id number] SUBQ 07/30/20 21:00 10/25/20 20:59 07/30/20 20:49 Haloperidol Lactate (Haldol) 5 mg Q6H PRN IM Agitation 07/17/20 17:30 08/31/20 17:29 07/30/20 04:19 Insulin Aspart (NovoLOG) Q6HR SUBQ 07/22/20 08:15 10/20/20 11:29 07/30/20 23:47 Insulin Detemir (Levemir) 12 units Q12HR SUBQ 07/24/20 09:00 10/20/20 09:59 07/30/20 20:50 Loperamide HCl (Imodium) 2 mg Q6H PRN NG Diarrhea 07/29/20 15:45 08/28/20 15:44 Lorazepam (Ativan 2mg/ml 1ml) 1 mg Q4H PRN IV For Anxiety 07/30/20 06:37 08/06/20 06:36 07/31/20 04:45 Metoprolol Tartrate (Lopressor) 25 mg EVERY 6 HOURS NG 07/26/20 12:00 10/24/20 11:59 07/30/20 23:46 Pantoprazole (Protonix) 40 mg EVERY 12 HOURS IVP 07/21/20 21:00 08/20/20 20:59 07/30/20 20:48 Piperacillin Sod/ Tazobactam Sod 2.25 gm/Dextrose 55 ml @ 110 mls/hr Q8HR@0200,1000,1800 IV 07/28/20 18:00 08/04/20 17:59 07/31/20 01:59 Quetiapine Fumarate (SEROqueL) 50 mg Q12HR ORAL 07/30/20 21:00 09/13/20 20:59 07/30/20 20:49 Vitamin D (Vitamin D) 5,000 unit DAILY ORAL 07/29/20 09:00 08/28/20 08:59 07/30/20 08:48 Kalin Briseno MD Jul 31, 2020 08:49
[2020-07-31] MEDS: Pantoprazole Inj IVP SCH ×2 (08:59→20:51)
[2020-07-31] MEDS: Vitamin D 1000 units Tab ORAL SCH (08:59)
--- NOTE | 2020-07-31 09:00 | NUR ---
NURSE NOTES: TECH HERE TO DO DUPLEX OF LOWER EXTREMITIES. PT IN NO DISTRESS.
[2020-07-31] MEDS: Levemir Flexpen SUBQ SCH ×2 (09:01→21:19)
--- NOTE | 2020-07-31 09:29 | NUR ---
CASE MANAGEMENT:REVIEW 07/31/20 SI: COVID PNA. COPD. ESRD RESPIRATORY FAILURE ~ INTUBATED 98.5 102 20 126/50 100% ON VENT SUPPORT W/80% FIO2 WBC+11.5 H/H-7.6/19.9 BUN+50 CR+3.8 IS: IV ZOSYN Q8HRS SEROQUEL NG Q12 EPOETIN SQ MWF VIT D NG QD LOPRESSOR NG Q6HRS LEVEMIR SQ Q12 : ICU STATUS DCP: FROM HOME
--- NOTE | 2020-07-31 10:05 | NUR ---
NURSE NOTES: cultures obtained from femoral access x2.
[2020-07-31] MEDS: Acetaminophen 650mg/20.3ml NG PRN (10:17)
--- NOTE | 2020-07-31 11:12 | NUR ---
NURSE NOTES: WOUND CARE NURSE HERE TO DO WOUND CARE AND EVALUATION. SACRAL WOUND STAGE 11.
--- NOTE | 2020-07-31 11:45 | NUR ---
NURSE NOTES: md Gatica here to see pt. was informed of afib, Lopressor held in early am due to hypotension, medication again scheduled for noon, will administer.
--- NOTE | 2020-07-31 12:41 | Nephrology Progress Note ---
Assessment/Plan Problem List: (1) Hypertensive kidney disease (2) ESRD (end stage renal disease) (3) Hyperkalemia (4) Suspected 2019 novel coronavirus infection (5) Acute respiratory failure Assessment 70-year-old female with end-stage renal disease Presented with volume overload and hyperkalemia Suspected COVID-19 virus infection Hypertensive emergency Diabetes mellitus CHF Plan July 31: Discussed with RN. Discussed with building performance consultant. Chest x-ray still looks wet. Despite of having been dialyzed yesterday we arrange for dialysis and ultrafiltration today and probably tomorrow. Labs reviewed. Per orders. July 30: Patient on dialysis now. Tolerating well. Labs and medications reviewed. Continue per consultants. Hemoglobin mid sevens. On 10,000 units of Epogen. Transfusion if needed. July 29: Dialyzed yesterday. Due for dialysis tomorrow. Labs reviewed. Iron panel ordered. Epogen dose increased. Continue per consultants. Vitamin D level pending July 28: Patient is about to get started on dialysis. Labs reviewed. Blood pressure 90 to 100 systolic. Continue per consultants. July 27: Patient dialyzed July 26. Labs reviewed. Status quo. Dialysi s again in a.m. July 26: Patient was dialyzed this morning. Labs reviewed. Remains intubated on ventilator. Full code. Tachycardic. Continue per consultants. Per orders. July 25: Patient was dialyzed yesterday. 2 L ultrafiltrate it. Discussed with electrogalvanizing machine operator today. Attempts at weaning is being tried. Patient will be dialyzed again tomorrow. In view of ejection fraction of 40 to 45% and low blood pressure will adjust the blood pressure medication dosages and give 0.25 mg digoxin IV once. Continue to monitor renal parameters. July 24: Due for dialysis today. Labs reviewed. Low phosphorus replaced. Continue pulmonary support and ID management. Medication list reviewed. BP medication adjusted. July 23: Dialyzed yesterday. Labs reviewed. ABG noted. Patient hypoxic. Vent setting adjusted by electrogalvanizing machine operator. Continue current care. Dialysis tomorrow. July 22: Patient on ventilator requiring positive end expiratory pressure. Labs reviewed. Blood sugar elevated. Levemir insulin ordered. Dialysis today. Continue per consultants. July 21: Patient now in ICU. Intubated on ventilator. Was dialyzed. Blood pressure well maintained. Has NG tube. Will start medication through NG tube and start feeding. Continue per consultants. Hemodialysis as needed. July 20: Patient seen and examined. Discussed with RN. Remains encephalopathic. Poor ABG results. Patient at high risk at this stage. We will transfer patients to ICU for possible airway support. Patient due for dialysis today. Hyperkalemia probably secondary to acidosis. Will arrange for NG tube insertion and give medication through NG tube. July 19: Mental status appears slightly improved. Was dialyzed 2 days in a row. Blood pressure medication adjusted. Next dialysis tomorrow. Continue per consultants. July 18: Patient encephalopathic, was dialyzed yesterday and had 3 L re moved. Will order dialysis again today. Continue per ID. Blood pressure medication adjusted. July 17: Stat hemodialysis ordered. Kayexalate for high potassium. Pulmonary support with oxygen or BiPAP as needed Blood pressure support with proper parameters Per orders Subjective ROS Limited/Unobtainable: Yes Objective Objective Last 24 Hour Vital Signs Date Time Temp Pulse Resp B/P (MAP) Pulse Ox O2 Delivery O2 Flow Rate FiO2 07/31/20 12:15 115 22 105/52 (69) 99 07/31/20 12:00 Mechanical Ventilator 07/31/20 12:00 122 07/31/20 12:00 45 07/31/20 12:00 99.0 116 22 103/39 (60) 100 07/31/20 11:18 110 17 45 07/31/20 11:00 108 20 101/66 (78) 98 07/31/20 10:47 99.0 07/31/20 10:00 109 19 104/37 (59) 99 07/31/20 09:30 105 19 109/43 (65) 99 07/31/20 09:00 108 24 118/45 (69) 98 07/31/20 08:30 104 20 116/47 (70) 98 07/31/20 08:00 103 07/31/20 08:00 45 07/31/20 08:00 Mechanical Ventilator 07/31/20 08:00 102.3 105 22 120/45 (70) 98 07/31/20 07:00 96 20 124/49 (74) 100 07/31/20 06:35 93 20 45 07/31/20 06:00 95 19 106/46 (66) 100 07/31/20 05:43 93 95/42 07/31/20 05:15 93 13 110/41 99 07/31/20 05:00 98 20 126/50 (75) 100 07/31/20 04:45 95 21 132/51 100 07/31/20 04:00 Mechanical Ventilator 07/31/20 04:00 98.5 103 19 124/48 (73) 100 07/31/20 04:00 102 07/31/20 04:00 80 07/31/20 03:45 99 22 117/46 (69) 100 07/31/20 03:30 102 19 121/48 (72) 100 07/31/20 03:15 99 15 113/47 (69) 100 07/31/20 03:00 100 19 126/52 (76) 100 07/31/20 02:30 99 18 60 07/31/20 02:00 103 19 118/54 (75) 100 07/31/20 01:00 89 17 98/40 (59) 100 07/31/20 00:56 99 26 60 07/31/20 00:00 99.2 107 15 103/49 (67) 98 07/31/20 00:00 122 07/31/20 00:00 Mechanical Ventilator 07/31/20 00:00 80 07/30/20 23:46 109 117/41 07/30/20 23:00 138 19 121/39 (66) 97 07/30/20 22:00 119 20 114/48 (70) 100 07/30/20 21:00 111 18 122/45 (70) 96 07/30/20 20:00 Mechanical Ventilator 07/30/20 20:00 80 07/30/20 20:00 101.6 121 21 129/54 (79) 99 07/30/20 20:00 118 07/30/20 19:00 114 20 107/42 (63) 100 07/30/20 18:57 100 19 100 Mechanical Ventilator 60 07/30/20 18:56 100 19 60 07/30/20 18:00 111 20 100/41 (60) 99 07/30/20 17:34 114 122/52 07/30/20 17:00 114 18 122/52 (75) 100 07/30/20 16:00 99.4 07/30/20 16:00 99.4 115 21 156/47 (83) 100 07/30/20 16:00 Mechanical Ventilator 07/30/20 16:00 108 07/30/20 16:00 80 07/30/20 15:20 113 27 70 07/30/20 15:00 106 19 142/48 (79) 100 07/30/20 14:00 109 20 149/46 (80) 98 07/30/20 13:00 110 18 145/55 (85) 98 Intake and Output 07/30/20 07/31/20 19:00 07:00 Intake Total 555 ml 360 ml Output Total 1030 ml 450 ml Balance -475 ml -90 ml Free Water 40 ml IV Total 220 ml Tube Feeding 295 ml 360 ml Output Urine Total 0 ml Stool Total 30 ml 450 ml Hemodialysis UF 1000 ml Current Medications Medications (Trade) Dose Ordered Sig/Toya Route PRN Reason Start Time Stop Time Status Last Admin Dose Admin Acetaminophen (Tylenol) 650 mg EVERY 6 HOURS PRN NG Mild Pain (Pain Scale 1-3) 07/29/20 09:05 08/28/20 09:04 07/29/20 23:16 Acetaminophen (Tylenol) 650 mg EVERY 6 HOURS PRN NG Temp >100.5 07/29/20 09:15 08/28/20 09:14 07/31/20 10:17 Chlorhexidine Gluconate (Yessi-Hex 2%) 1 applic DAILY@1999 TOPIC 07/21/20 20:00 10/19/20 19:59 07/30/20 20:48 Clonidine HCl (Catapres Tab) 0.1 mg Q4H PRN NG bp over 165 syst 07/21/20 12:00 10/14/20 22:44 Dextrose (Dextrose 50%) 25 ml Q30M PRN IV Hypoglycemia 07/22/20 08:00 10/20/20 07:59 Dextrose (Dextrose 50%) 50 ml Q30M PRN IV Hypoglycemia 07/22/20 08:00 10/20/20 07:59 Docusate Sodium (Colace) 100 mg EVERY 8 HOURS NG 07/29/20 22:00 08/20/20 12:59 Epoetin Panchito (Epoetin Panchito(ESRD on dialysis)) 10,000 unit THU-WED-THU SUBQ 07/30/20 21:00 10/25/20 20:59 07/30/20 20:49 Haloperidol Lactate (Haldol) 5 mg Q6H PRN IM Agitation 07/17/20 17:30 08/31/20 17:29 07/30/20 04:19 Insulin Aspart (NovoLOG) Q6HR SUBQ 07/22/20 08:15 10/20/20 11:29 07/30/20 23:47 Insulin Detemir (Levemir) 12 units Q12HR SUBQ 07/24/20 09:00 10/20/20 09:59 07/31/20 09:01 Loperamide HCl (Imodium) 2 mg Q6H PRN NG Diarrhea 07/29/20 15:45 08/28/20 15:44 Lorazepam (Ativan 2mg/ml 1ml) 1 mg Q4H PRN IV For Anxiety 07/30/20 06:37 08/06/20 06:36 07/31/20 04:45 Metoprolol Tartrate (Lopressor) 25 mg EVERY 6 HOURS NG 07/26/20 12:00 10/24/20 11:59 07/30/20 23:46 Pantoprazole (Protonix) 40 mg EVERY 12 HOURS IVP 07/21/20 21:00 08/20/20 20:59 07/31/20 08:59 Piperacillin Sod/ Tazobactam Sod 2.25 gm/Dextrose 55 ml @ 110 mls/hr Q8HR@0200,1000,1800 IV 07/28/20 18:00 08/04/20 17:59 07/31/20 09:00 Quetiapine Fumarate (SEROqueL) 50 mg Q12HR ORAL 07/30/20 21:00 09/13/20 20:59 07/31/20 08:59 Vitamin D (Vitamin D) 5,000 unit DAILY ORAL 07/29/20 09:00 08/28/20 08:59 07/31/20 08:59 Laboratory Tests 07/30/20 20:29: POC Whole Blood Glucose 116H 07/31/20 04:00: White Blood Count 11.5H, Red Blood Count 1.96L, Hemoglobin 7.6L, Hematocrit 19.9L, Mean Corpuscular Volume 102H, Mean Corpuscular Hemoglobin 38.6H, Mean Corpuscular Hemoglobin Concent 38.0H, Red Cell Distribution Width 16.9H, Platelet Count 173, Mean Platelet Volume 8.2, Neutrophils (%) (Auto) , Lymphocytes (%) (Auto) , Monocytes (%) (Auto) , Eosinophils (%) (Auto) , Basophils (%) (Auto) , Differential Total Cells Counted 100, Neutrophils % (Manual) 94H, Lymphocytes % (Manual) 2L, Monocytes % (Manual) 3, Eosinophils % (Manual) 1, Basophils % (Manual) 0, Band Neutrophils 0, Platelet Estimate Adequate, Platelet Morphology Normal, Polychromasia 1+, Hypochromasia 1+, Anisocytosis 1+, Sodium Level 142, Potassium Level 3.4L, Chloride Level 101, C arbon Dioxide Level 36H, Anion Gap 5, Blood Urea Nitrogen 50H, Creatinine 3.8H, Estimat Glomerular Filtration Rate 11.7, Glucose Level 140H, Calcium Level 8.4L, Phosphorus Level 3.1, Magnesium Level 1.9, Total Bilirubin 1.2H, Direct Bilirubin 0.8H, Aspartate Amino Transf (AST/SGOT) 46H, Alanine Aminotransferase (ALT/SGPT) 21, Alkaline Phosphatase 305H, C-Reactive Protein, Quantitative 30.4H , Total Protein 6.6, Albumin 2.2L, Globulin 4.4, Albumin/Globulin Ratio 0.5L 07/31/20 12:30: POC Whole Blood Glucose 97 Height (Feet): 5 Height (Inches): 4.00 Weight (Pounds): 180 General Appearance: no apparent distress Cardiovascular: tachycardia Respiratory/Chest: decreased breath sounds Abdomen: distended Francis Falk MD Jul 31, 2020 12:41
--- NOTE | 2020-07-31 12:47 | Cardiac Electrophysiology PN ---
Assessment/Plan Assessment/Plan 1. Accelerated HTN. Better on Lopressor 25 po q 6hr and p.r.n.clonidine. EF 40- 45% 2. Atrial fib with RVR with HR up to 150s. On Lopressor 25 q 6 hr 3. ESRD, on hemodialysis. 4. Hyponatremia, sodium 129. Fluid restriction per Dr. Falk. 5. Volume overload, BNP of more than 35,000 and EF 40-45%. On HD 6. Covid PNA and resp failure on the Vent with 100% Fio2 and PEEP 15 Covid positive 07/11 and 07/17 7. Tarry stool. S/P PRBC DW RN Subjective Subjective Confused in restraints. In Covid isolation. Intubated on 45 % Fio2 and PEEP 10 on had HD yesterday Developed atrial fib with RVR 140s. Now HR 70s in atrial fib on Lopressor. S/P PRBC Objective Last 24 Hour Vital Signs Date Time Temp Pulse Resp B/P (MAP) Pulse Ox O2 Delivery O2 Flow Rate FiO2 07/31/20 12:15 115 22 105/52 (69) 99 07/31/20 12:00 Mechanical Ventilator 07/31/20 12:00 122 07/31/20 12:00 45 07/31/20 12:00 99.0 116 22 103/39 (60) 100 07/31/20 11:18 110 17 45 07/31/20 11:00 108 20 101/66 (78) 98 07/31/20 10:47 99.0 07/31/20 10:00 109 19 104/37 (59) 99 07/31/20 09:30 105 19 109/43 (65) 99 07/31/20 09:00 108 24 118/45 (69) 98 07/31/20 08:30 104 20 116/47 (70) 98 07/31/20 08:00 103 07/31/20 08:00 45 07/31/20 08:00 Mechanical Ventilator 07/31/20 08:00 102.3 105 22 120/45 (70) 98 07/31/20 07:00 96 20 124/49 (74) 100 07/31/20 06:35 93 20 45 07/31/20 06:00 95 19 106/46 (66) 100 07/31/20 05:43 93 95/42 07/31/20 05:15 93 13 110/41 99 07/31/20 05:00 98 20 126/50 (75) 100 07/31/20 04:45 95 21 132/51 100 07/31/20 04:00 Mechanical Ventilator 07/31/20 04:00 98.5 103 19 124/48 (73) 100 07/31/20 04:00 102 07/31/20 04:00 80 07/31/20 03:45 99 22 117/46 (69) 100 07/31/20 03:30 102 19 121/48 (72) 100 07/31/20 03:15 99 15 113/47 (69) 100 07/31/20 03:00 100 19 126/52 (76) 100 07/31/20 02:30 99 18 60 07/31/20 02:00 103 19 118/54 (75) 100 07/31/20 01:00 89 17 98/40 (59) 100 07/31/20 00:56 99 26 60 07/31/20 00:00 99.2 107 15 103/49 (67) 98 07/31/20 00:00 122 07/31/20 00:00 Mechanical Ventilator 07/31/20 00:00 80 07/30/20 23:46 109 117/41 07/30/20 23:00 138 19 121/39 (66) 97 07/30/20 22:00 119 20 114/48 (70) 100 07/30/20 21:00 111 18 122/45 (70) 96 07/30/20 20:00 Mechanical Ventilator 07/30/20 20:00 80 07/30/20 20:00 101.6 121 21 129/54 (79) 99 07/30/20 20:00 118 07/30/20 19:00 114 20 107/42 (63) 100 07/30/20 18:57 100 19 100 Mechanical Ventilator 60 07/30/20 18:56 100 19 60 07/30/20 18:00 111 20 100/41 (60) 99 07/30/20 17:34 114 122/52 07/30/20 17:00 114 18 122/52 (75) 100 07/30/20 16:00 99.4 07/30/20 16:00 99.4 115 21 156/47 (83) 100 07/30/20 16:00 Mechanical Ventilator 07/30/20 16:00 108 07/30/20 16:00 80 07/30/20 15:20 113 27 70 07/30/20 15:00 106 19 142/48 (79) 100 07/30/20 14:00 109 20 149/46 (80) 98 07/30/20 13:00 110 18 145/55 (85) 98 Intake and Output 07/30/20 07/31/20 19:00 07:00 Intake Total 555 ml 360 ml Output Total 1030 ml 450 ml Balance -475 ml -90 ml Free Water 40 ml IV Total 220 ml Tube Feeding 295 ml 360 ml Output Urine Total 0 ml Stool Total 30 ml 450 ml Hemodialysis UF 1000 ml Laboratory Tests Test 07/30/20 20:29 07/31/20 04:00 07/31/20 12:30 POC Whole Blood Glucose 116 MG/DL (74-106) H 97 MG/DL (74-106) White Blood Count 11.5 K/UL (4.8-10.8) H Red Blood Count 1.96 M/UL (4.20-5.40) L Hemoglobin 7.6 G/DL (12.0-16.0) L Hematocrit 19.9 % (37.0-47.0) L Mean Corpuscular Volume 102 FL (80-99) H Mean Corpuscular Hemoglobin 38.6 PG (27.0-31.0) H Mean Corpuscular Hemoglobin Concent 38.0 G/DL (32.0-36.0) H Red Cell Distribution Width 16.9 % (11.6-14.8) H Platelet Count 173 K/UL (150-450) Mean Platelet Volume 8.2 FL (6.5-10.1) Neutrophils (%) (Auto) % (45.0-75.0) Lymphocytes (%) (Auto) % (20.0-45.0) Monocytes (%) (Auto) % (1.0-10.0) Eosinophils (%) (Auto) % (0.0-3.0) Basophils (%) (Auto) % (0.0-2.0) Differential Total Cells Counted 100 Neutrophils % (Manual) 94 % (45-75) H Lymphocytes % (Manual) 2 % (20-45) L Monocytes % (Manual) 3 % (1-10) Eosinophils % (Manual) 1 % (0-3) Basophils % (Manual) 0 % (0-2) Band Neutrophils 0 % (0-8) Platelet Estimate Adequate Platelet Morphology Normal Polychromasia 1+ Hypochromasia 1+ Anisocytosis 1+ Sodium Level 142 MMOL/L (136-145) Potassium Level 3.4 MMOL/L (3.5-5.1) L Chloride Level 101 MMOL/L (98-107) Carbon Dioxide Level 36 MMOL/L (21-32) H Anion Gap 5 mmol/L (5-15) Blood Urea Nitrogen 50 mg/dL (7-18) H Creatinine 3.8 MG/DL (0.55-1.30) H Estimat Glomerular Filtration Rate 11.7 mL/min (>60) Glucose Level 140 MG/DL (74-106) H Calcium Level 8.4 MG/DL (8.5-10.1) L Phosphorus Level 3.1 MG/DL (2.5-4.9) Magnesium Level 1.9 MG/DL (1.8-2.4) Total Bilirubin 1.2 MG/DL (0.2-1.0) H Direct Bilirubin 0.8 MG/DL (0.0-0.3) H Aspartate Amino Transf (AST/SGOT) 46 U/L (15-37) H Alanine Aminotransferase (ALT/SGPT) 21 U/L (12-78) Alkaline Phosphatase 305 U/L (46-116) H C-Reactive Protein, Quantitative 30.4 mg/dL (0.00-0.90) H Total Protein 6.6 G/DL (6.4-8.2) Albumin 2.2 G/DL (3.4-5.0) L Globulin 4.4 g/dL Albumin/Globulin Ratio 0.5 (1.0-2.7) L Objective HEAD AND NECK: Orally intubated LUNGS: Coarse rhonchi. CARDIOVASCULAR: Regular S1 and S2 with no gallop or murmur. ABDOMEN: Soft. EXTREMITIES: No pitting edema. Zev Gatica MD Jul 31, 2020 12:47
--- NOTE | 2020-07-31 13:12 | Pulmonology Progress Note ---
Subjective ROS Limited/Unobtainable: Yes Interval Events: Remains on 100% FiO2, PEEP 10 Constitutional: Reports: fever, other - Mh=637.6 last night HEENT: Repors: no symptoms Respiratory: Reports: no symptoms Cardiovascular: Reports: no symptoms Gastrointestinal/Abdominal: Reports: no symptoms Genitourinary: Reports: no symptoms Allergies: Coded Allergies: No Known Allergies (Unverified , 05/12/17) All Systems: reviewed and negative except above Objective Last 24 Hour Vital Signs Date Time Temp Pulse Resp B/P (MAP) Pulse Ox O2 Delivery O2 Flow Rate FiO2 07/31/20 13:07 122 105/44 07/31/20 12:15 115 22 105/52 (69) 99 07/31/20 12:00 Mechanical Ventilator 07/31/20 12:00 122 07/31/20 12:00 45 07/31/20 12:00 99.0 116 22 103/39 (60) 100 07/31/20 11:18 110 17 45 07/31/20 11:00 108 20 101/66 (78) 98 07/31/20 10:47 99.0 07/31/20 10:00 109 19 104/37 (59) 99 07/31/20 09:30 105 19 109/43 (65) 99 07/31/20 09:00 108 24 118/45 (69) 98 07/31/20 08:30 104 20 116/47 (70) 98 07/31/20 08:00 103 07/31/20 08:00 45 07/31/20 08:00 Mechanical Ventilator 07/31/20 08:00 102.3 105 22 120/45 (70) 98 07/31/20 07:00 96 20 124/49 (74) 100 07/31/20 06:35 93 20 45 07/31/20 06:00 95 19 106/46 (66) 100 07/31/20 05:43 93 95/42 07/31/20 05:15 93 13 110/41 99 07/31/20 05:00 98 20 126/50 (75) 100 07/31/20 04:45 95 21 132/51 100 07/31/20 04:00 Mechanical Ventilator 07/31/20 04:00 98.5 103 19 124/48 (73) 100 07/31/20 04:00 102 07/31/20 04:00 80 12/29/20 03:45 99 22 117/46 (69) 100 07/31/20 03:30 102 19 121/48 (72) 100 07/31/20 03:15 99 15 113/47 (69) 100 07/31/20 03:00 100 19 126/52 (76) 100 07/31/20 02:30 99 18 60 07/31/20 02:00 103 19 118/54 (75) 100 07/31/20 01:00 89 17 98/40 (59) 100 07/31/20 00:56 99 26 60 07/31/20 00:00 99.2 107 15 103/49 (67) 98 07/31/20 00:00 122 07/31/20 00:00 Mechanical Ventilator 07/31/20 00:00 80 07/30/20 23:46 109 117/41 07/30/20 23:00 138 19 121/39 (66) 97 07/30/20 22:00 119 20 114/48 (70) 100 07/30/20 21:00 111 18 122/45 (70) 96 07/30/20 20:00 Mechanical Ventilator 07/30/20 20:00 80 07/30/20 20:00 101.6 121 21 129/54 (79) 99 07/30/20 20:00 118 07/30/20 19:00 114 20 107/42 (63) 100 07/30/20 18:57 100 19 100 Mechanical Ventilator 60 07/30/20 18:56 100 19 60 07/30/20 18:00 111 20 100/41 (60) 99 07/30/20 17:34 114 122/52 07/30/20 17:00 114 18 122/52 (75) 100 07/30/20 16:00 99.4 07/30/20 16:00 99.4 115 21 156/47 (83) 100 07/30/20 16:00 Mechanical Ventilator 07/30/20 16:00 108 07/30/20 16:00 80 07/30/20 15:20 113 27 70 07/30/20 15:00 106 19 142/48 (79) 100 07/30/20 14:00 109 20 149/46 (80) 98 Intake and Output0 07/30/20 07/31/20 19:00 07:00 Intake Total 555 ml 360 ml Output Total 1030 ml 450 ml Balance -475 ml -90 ml Free Water 40 ml IV Total 220 ml Tube Feeding 295 ml 360 ml Output Urine Total 0 ml Stool Total 30 ml 450 ml Hemodialysis UF 1000 ml General Appearance: WD/WN, no acute distress, other - intubation HEENT: normocephalic Respiratory: chest wall non-tender, crackles/rales Cardiovascular: normal rate, regular rhythm Laboratory Tests 07/30/20 20:29: POC Whole Blood Glucose 116H 07/31/20 04:00: White Blood Count 11.5H, Red Blood Count 1.96L, Hemoglobin 7.6L, Hematocrit 19.9L, Mean Corpuscular Volume 102H, Mean Corpuscular Hemoglobin 38.6H, Mean Corpuscular Hemoglobin Concent 38.0H, Red Cell Distribution Width 16.9H, Platelet Count 173, Mean Platelet Volume 8.2, Neutrophils (%) (Auto) , Lymphocytes (%) (Auto) , Monocytes (%) (Auto) , Eosinophils (%) (Auto) , Basophils (%) (Auto) , Differential Total Cells Counted 100, Neutrophils % (Manual) 94H, Lymphocytes % (Manual) 2L, Monocytes % (Manual) 3, Eosinophils % (Manual) 1, Basophils % (Manual) 0, Band Neutrophils 0, Platelet Estimate Adequate, Platelet Morphology Normal, Polychromasia 1+, Hypochromasia 1+, Anisocytosis 1+, Sodium Level 142, Potassium Level 3.4L, Chloride Level 101, Carbon Dioxide Level 36H, Anion Gap 5, Blood Urea Nitrogen 50H, Creatinine 3.8H, Estimat Glomerular Filtration Rate 11.7, Glucose Level 140H, Calcium Level 8.4L, Phosphorus Level 3.1, Magnesium Level 1.9, Total Bilirubin 1.2H, Direct Bilirubin 0.8H, Aspartate Amino Transf (AST/SGOT) 46H, Alanine Aminotransferase (ALT/SGPT) 21, Alkaline Phosphatase 305H, C-Reactive Protein, Quantitative 30.4H , Total Protein 6.6, Albumin 2.2L, Globulin 4.4, Albumin/Globulin Ratio 0.5L 07/31/20 12:30: POC Whole Blood Glucose 97 Current Medications Medications (Trade) Dose Ordered Sig/Toya Route PRN Reason Start Time Stop Time Status Last Admin Dose Admin Acetaminophen (Tylenol) 650 mg EVERY 6 HOURS PRN NG Mild Pain (Pain Scale 1-3) 07/29/20 09:05 08/28/20 09:04 07/29/20 23:16 Acetaminophen (Tylenol) 650 mg EVERY 6 HOURS PRN NG Temp >100.5 07/29/20 09:15 08/28/20 09:14 07/31/20 10:17 Chlorhexidine Gluconate (Yessi-Hex 2%) 1 applic DAILY@1999 TOPIC 07/21/20 20:00 10/19/20 19:59 07/30/20 20:48 Clonidine HCl (Catapres Tab) 0.1 mg Q4H PRN NG bp over 165 syst 07/21/20 12:00 10/14/20 22:44 Dextrose (Dextrose 50%) 25 ml Q30M PRN IV Hypoglycemia 07/22/20 08:00 10/20/20 07:59 Dextrose (Dextrose 50%) 50 ml Q30M PRN IV Hypoglycemia 07/22/20 08:00 10/20/20 07:59 Docusate Sodium (Colace) 100 mg EVERY 8 HOURS NG 07/29/20 22:00 08/20/20 12:59 Epoetin Panchito (Epoetin Panchito(ESRD on dialysis)) 10,000 unit THU-THU-THU SUBQ 07/30/20 21:00 10/25/20 20:59 07/30/20 20:49 Haloperidol Lactate (Haldol) 5 mg Q6H PRN IM Agitation 07/17/20 17:30 08/31/20 17:29 07/30/20 04:19 Insulin Aspart (NovoLOG) Q6HR SUBQ 07/22/20 08:15 10/20/20 11:29 07/30/20 23:47 Insulin Detemir (Levemir) 12 units Q12HR SUBQ 07/24/20 09:00 10/20/20 09:59 07/31/20 09:01 Loperamide HCl (Imodium) 2 mg Q6H PRN NG Diarrhea 07/29/20 15:45 08/28/20 15:44 Lorazepam (Ativan 2mg/ml 1ml) 1 mg Q4H PRN IV For Anxiety 07/30/20 06:37 08/06/20 06:36 07/31/20 04:45 Metoprolol Tartrate (Lopressor) 25 mg EVERY 6 HOURS NG 07/26/20 12:00 10/24/20 11:59 07/31/20 13:07 Pantoprazole (Protonix) 40 mg EVERY 12 HOURS IVP 07/21/20 21:00 08/20/20 20:59 07/31/20 08:59 Piperacillin Sod/ Tazobactam Sod 2.25 gm/Dextrose 55 ml @ 110 mls/hr Q8HR@0200,1000,1800 IV 07/28/20 18:00 08/04/20 17:59 07/31/20 09:00 Quetiapine Fumarate (SEROqueL) 50 mg Q12HR ORAL 07/30/20 21:00 09/13/20 20:59 07/31/20 08:59 Vitamin D (Vitamin D) 5,000 unit DAILY ORAL 07/29/20 09:00 08/28/20 08:59 07/31/20 08:59 Assessment/Plan Assessment/Plan Assessment/Plan 1. COVID-19 pneumonia. 2. COPD 3. Pneumonia 4. Hypertensive emergency. - Blood pressure controlled. 5. Leukocytosis.; improving 6. Anemia. 7. Hyponatremia.; resolved 8. Hyperkalemia.; resolved 9. Hypochloridemia.; resolved 10. Hyperglycemia. 11. ESRD, on dialysis. 12. Respiratory failure; now intubated PLAN Continue O2; currently 100% Vent; AC mode On PEEP now 10 CXR shows almost complete whiteout both lungs Needs more HD Discussed with Dr Falk S/p HD Continue steroids Levy Law MD, MD Jul 31, 2020 13:12
--- NOTE | 2020-07-31 13:32 | NUR ---
RD ASSESSMENT & RECOMMENDATIONS SEE CARE ACTIVITY FOR COMPLETE ASSESSMENT DAILY ESTIMATED NEEDS: Needs based on ESRD on HD, DM, crtical care 49 adj 25-33 kcals/kg 8969-7010 total kcals 1.25-1.8 g protein/kg 61-88 g total protein Fluid per MD, on HD NUTRITION DIAGNOSIS: 1) Increased kcal and protein needs R/T renal dysfunction as evidenced by pt w/ESRD on HD. 2) Swallowing difficulty R/T respiratory failure as evidenced by orally intubated, on NGT feeds. 3) Altered nutrition related lab values R/T h/o DM as evidenced by elev BGs (140, 612, 328-> now improved POC glu 75-188). CURRENT TF:Nepro @ 30ml/hr x 24 hrs ENTERAL NUTRITION RECOMMENDATIONS: Nepro @ 35ml/hr x 24 hrs to provide 840ml, 1512kcal, 68g prot, 611ml free water * As medically able INCREASE Nepro as tolerated goal rate to 35ml/hr to better meet est kcal/prot needs * HOB over 30 degrees/ water flush per MD ADDITIONAL RECOMMENDATIONS: 1) Daily calibrated bedscale wt: Wt fluctuating 80kg's-> 60kg's 2) Monitor BGs closely: BGs improved on long acting insulin + NISS Monitor for hypoglycemia, need for insulin adjustment 3) Nephrovite x 1 4) Monitor lytes . 5) Add BARBRA in 4oz water BID via OGT with diet order for skin integrity
--- NOTE | 2020-07-31 14:50 | NUR ---
NURSE NOTES:WOUND CARE NOTES:Pt deconditioned and presents with Multiple Pressure Injuries. Observed restless in bed. Sacral DTPI noted(L)8.5cm x (W)9.6cm.Base of Pressure Injury is Purpuric at cleft with surrounding maroon bed. Non-Blanchable erythema with scattered areas of dry pink epithelial periwound to R and L gluteal cheeks. Partial Thickness Pressure Injury noted to perianal area (L)1.4cm x (W)0.7cm. Base of wound is moist and viable. DTPI L Heel (L)3.5cm x (W)6.5cm. Base of heel is maroon and fluctuant. R Heel is boggy with an area laterally of non-blanchable erythema with delineated margins.(L) 3cm x (W)2.5cm. Tx.Plan:Apply Moisture Barrier Paste to Sacrum. Cover with Optifoam drsg. Change every 3 days and prn. ApplyMoisture Barrier Paste to Perianal area with each Incontinence care. Apply Cavilon Skin Barrier to Both Heels. Cover each heel with Optifoam drsg. Change every 7 days and prn. Reposition at least every 2hours or as tolerated. Off-load heels with pillows. APM/DEZ Mattress overlay.
--- NOTE | 2020-07-31 15:21 | NUR ---
NURSE NOTES: CALLED [facility] INFORMED OF H.D ROUTINE SPOKE WITH [employer]SE[employer]
--- NOTE | 2020-07-31 16:16 | NUR ---
NURSE NOTES: LATE ENTRY: PT IN BED. OPENS EYES. AFIB ON MONITOR , BP STABLE. FEBRILE AT 99 AX. TEMP. NONVERBAL. BILATERAL RADIAL PULSES PRESENT. HOT TO TOUCH. SKIN MOIST. PT INTUBATED 7.5, 24CM AT LIP. VENT SETTINGS: AC 16, VT 500, 30%FI02, PEEP 10. ORAL CARE AND SUCTION PROVIDED. BILATERAL LUNG SOUNDS DIMINISHED. DIAL SECRETIONS. OGT, PATENT. TUBE FEEDING, NEPRO AT 30ML/HR. NO RESIDUALS. RECTAL TUBE DRAINING DARK GREEN LIQUID STOOL. OLIGURIC. IV ACCESS RT FEMORAL TLC, TKO. BILATERAL SOFT WRIST RESTRAINTS IN PLACE. CIRCULATION CHECK CONDUCTED. BED LOCKED, IN LOW POSITION. SIDE RAILS X2. AIRBORNE ISOLATION. WILL CONTINUE TO IMPLEMENT CARE.
--- NOTE | 2020-07-31 17:30 | NUR ---
hd oreder modified by dr stearns dry uf 2hrs 2l
--- NOTE | 2020-07-31 18:00 | NUR ---
NURSE NOTES: basim mercado here to dialysis pt. non administer Lopressor. basim Mercado administered albumin for b.p support.
--- NOTE | 2020-07-31 19:29 | NUR ---
NURSE NOTES: called and left message for MD. Best regarding pt k 3.4. want to know if want h.d r.n to replace while dialysis pt tonight or replace via gt. awaiting call back.
--- NOTE | 2020-07-31 19:30 | NUR ---
NURSE NOTES: Received pt with on going hemodialysis, , resting well at time orally intubated, on ac mode, bilateral soft wrist restraints on maintained for safety , Afib on the monitor, Bp stable afebrile. Rectal tube to gravity with liquid greenish stools coming out., Will continue to monitor.
--- NOTE | 2020-07-31 19:49 | NUR ---
NURSE HAND-OFF REPORT: Latest Vital Signs: Temperature 98.9 , Pulse 103 , B/P 106 /48 , Respiratory Rate 20 , O2 SAT 98 , Nasal Cannula, O2 Flow Rate 3.0 . Vital Sign Comment: EKG Rhythm: Atrial Fibrillation Rhythm change?: N Notified?: Y -Dr. En CROFT Response: Latest Elizabeth Fall Score: 50 Fall Risk: High Risk Safety Measures: Call light Within Reach, Bed Alarm Zone 1, Side Rails Side Rails x3, Bed position Low and Locked. Fall Precautions: Door Sign Report given to .CASTILLO Ramsey ENDORSED F/U KIMBERLY YEPEZ REGARDING K 3.4
[2020-07-31] MEDS: Dyna-Hex 2% Top Sol 2oz TOPIC SCH (20:11)
--- NOTE | 2020-07-31 20:15 | NUR ---
NURSE NOTES: Hemodialysis was finished with 2 liters out.
--- NOTE | 2020-07-31 20:51 | General Progress Note ---
Subjective Allergies: Coded Allergies: No Known Allergies (Unverified , 05/12/17) Subjective above noted seen this am in ICU agitated, restrained Objective Last 24 Hour Vital Signs Date Time Temp Pulse Resp B/P (MAP) Pulse Ox O2 Delivery O2 Flow Rate FiO2 07/31/20 19:00 103 20 106/48 (67) 98 07/31/20 18:35 102 24 35 07/31/20 18:00 99 20 106/40 (62) 97 07/31/20 17:00 94 19 113/43 (66) 95 07/31/20 16:00 Mechanical Ventilator 07/31/20 16:00 98.9 91 21 90/60 (70) 100 07/31/20 16:00 89 07/31/20 16:00 45 07/31/20 15:00 97 18 88/42 (57) 100 07/31/20 14:35 102 22 101/40 99 07/31/20 14:30 90 18 35 07/31/20 14:00 111 22 101/44 (63) 100 07/31/20 13:07 122 105/44 07/31/20 13:00 117 20 96/37 (56) 100 07/31/20 12:15 115 22 105/52 (69) 99 07/31/20 12:00 Mechanical Ventilator 07/31/20 12:00 122 07/31/20 12:00 45 07/31/20 12:00 99.0 116 22 103/39 (60) 100 07/31/20 11:18 110 17 45 07/31/20 11:00 108 20 101/66 (78) 98 07/31/20 10:47 99.0 07/31/20 10:00 109 19 104/37 (59) 99 07/31/20 09:30 105 19 109/43 (65) 99 07/31/20 09:00 108 24 118/45 (69) 98 07/31/20 08:30 104 20 116/47 (70) 98 07/31/20 08:00 103 07/31/20 08:00 45 07/31/20 08:00 Mechanical Ventilator 07/31/20 08:00 102.3 105 22 120/45 (70) 98 07/31/20 07:00 96 20 124/49 (74) 100 07/31/20 06:35 93 20 45 07/31/20 06:00 95 19 106/46 (66) 100 07/31/20 05:43 93 95/42 07/31/20 05:15 93 13 110/41 99 07/31/20 05:00 98 20 126/50 (75) 100 07/31/20 04:45 95 21 132/51 100 07/31/20 04:00 Mechanical Ventilator 07/31/20 04:00 98.5 103 19 124/48 (73) 100 07/31/20 04:00 102 07/31/20 04:00 80 07/31/20 03:45 99 22 117/46 (69) 100 07/31/20 03:30 102 19 121/48 (72) 100 07/31/20 03:15 99 15 113/47 (69) 100 07/31/20 03:00 100 19 126/52 (76) 100 07/31/20 02:30 99 18 60 07/31/20 02:00 103 19 118/54 (75) 100 07/31/20 01:00 89 17 98/40 (59) 100 07/31/20 00:56 99 26 60 07/31/20 00:00 99.2 107 15 103/49 (67) 98 07/31/20 00:00 122 07/31/20 00:00 Mechanical Ventilator 07/31/20 00:00 80 07/30/20 23:46 109 117/41 07/30/20 23:00 138 19 121/39 (66) 97 07/30/20 22:00 119 20 114/48 (70) 100 07/30/20 21:00 111 18 122/45 (70) 96 Intake and Output 07/30/20 07/31/20 19:00 07:00 Intake Total 555 ml 360 ml Output Total 1030 ml 450 ml Balance -475 ml -90 ml Free Water 40 ml IV Total 220 ml Tube Feeding 295 ml 360 ml Output Urine Total 0 ml Stool Total 30 ml 450 ml Hemodialysis UF 1000 ml Laboratory Tests 07/30/20 23:37: POC Whole Blood Glucose [Pending] 07/31/20 04:00: White Blood Count 11.5H, Red Blood Count 1.96L, Hemoglobin 7.6L, Hematocrit 19.9L, Mean Corpuscular Volume 102H, Mean Corpuscular Hemoglobin 38.6H, Mean Corpuscular Hemoglobin Concent 38.0H, Red Cell Distribution Width 16.9H, Platelet Count 173, Mean Platelet Volume 8.2, Neutrophils (%) (Auto) , Lymphocytes (%) (Auto) , Monocytes (%) (Auto) , Eosinophils (%) (Auto) , Basophils (%) (Auto) , Differential Total Cells Counted 100, Neutrophils % (Manual) 94H, Lymphocytes % (Manual) 2L, Monocytes % (Manual) 3, Eosinophils % (Manual) 1, Basophils % (Manual) 0, Band Neutrophils 0, Platelet Estimate Adequate, Platelet Morphology Normal, Polychromasia 1+, Hypochromasia 1+, Anisocytosis 1+, Sodium Level 142, Potassium Level 3.4L, Chloride Level 101, Carbon Dioxide Level 36H, Anion Gap 5, Blood Urea Nitrogen 50H, Creatinine 3.8H, Estimat Glomerular Filtration Rate 11.7, Glucose Level 140H, Calcium Level 8.4L , Phosphorus Level 3.1, Magnesium Level 1.9, Total Bilirubin 1.2H, Direct Bilirubin 0.8H, Aspartate Amino Transf (AST/SGOT) 46H, Alanine Aminotransferase (ALT/SGPT) 21, Alkaline Phosphatase 305H, C-Reactive Protein, Quantitative 30.4H , Total Protein 6.6, Albumin 2.2L, Globulin 4.4, Albumin/Globulin Ratio 0.5L 07/31/20 05:32: POC Whole Blood Glucose 131H 07/31/20 12:30: POC Whole Blood Glucose 97 07/31/20 13:02: POC Whole Blood Glucose 97 07/31/20 18:08: POC Whole Blood Glucose 129H Height (Feet): 5 Height (Inches): 4.00 Weight (Pounds): 180 Objective Elderly woman on vent restrained moving spontaneously exam limited due to COVID infection Assessment/Plan Status: progressing, deteriorating Assessment/Plan: Assessment - Recurrent GI bleed - anemia - s/p multiple endoscopies and colonoscopies this year - resp failure - COPD - COVID PNA - abnormal LFT - presumed COVID related - DM - Poor Px Recommendations - PPI BID - Tube feeds - follow labs - HD - PRN transfusion - No plans for endoscopy per discussion with family Ramakrishna Leonard MD Jul 31, 2020 20:51
--- NOTE | 2020-07-31 21:26 | General Progress Note ---
Subjective ROS Limited/Unobtainable: Yes Allergies: Coded Allergies: No Known Allergies (Unverified , 05/12/17) Objective Last 24 Hour Vital Signs Date Time Temp Pulse Resp B/P (MAP) Pulse Ox O2 Delivery O2 Flow Rate FiO2 07/31/20 19:00 103 20 106/48 (67) 98 07/31/20 18:35 102 24 35 07/31/20 18:00 99 20 106/40 (62) 97 07/31/20 17:00 94 19 113/43 (66) 95 07/31/20 16:00 Mechanical Ventilator 07/31/20 16:00 98.9 91 21 90/60 (70) 100 07/31/20 16:00 89 07/31/20 16:00 45 07/31/20 15:00 97 18 88/42 (57) 100 07/31/20 14:35 102 22 101/40 99 07/31/20 14:30 90 18 35 07/31/20 14:00 111 22 101/44 (63) 100 07/31/20 13:07 122 105/44 07/31/20 13:00 117 20 96/37 (56) 100 07/31/20 12:15 115 22 105/52 (69) 99 07/31/20 12:00 Mechanical Ventilator 07/31/20 12:00 122 07/31/20 12:00 45 07/31/20 12:00 99.0 116 22 103/39 (60) 100 07/31/20 11:18 110 17 45 07/31/20 11:00 108 20 101/66 (78) 98 07/31/20 10:47 99.0 07/31/20 10:00 109 19 104/37 (59) 99 07/31/20 09:30 105 19 109/43 (65) 99 07/31/20 09:00 108 24 118/45 (69) 98 07/31/20 08:30 104 20 116/47 (70) 98 07/31/20 08:00 103 07/31/20 08:00 45 07/31/20 08:00 Mechanical Ventilator 07/31/20 08:00 102.3 105 22 120/45 (70) 98 07/31/20 07:00 96 20 124/49 (74) 100 07/31/20 06:35 93 20 45 07/31/20 06:00 95 19 106/46 (66) 100 07/31/20 05:43 93 95/42 07/31/20 05:15 93 13 110/41 99 07/31/20 05:00 98 20 126/50 (75) 100 07/31/20 04:45 95 21 132/51 100 07/31/20 04:00 Mechanical Ventilator 07/31/20 04:00 98.5 103 19 124/48 (73) 100 07/31/20 04:00 102 07/31/20 04:00 80 07/31/20 03:45 99 22 117/46 (69) 100 07/31/20 03:30 102 19 121/48 (72) 100 07/31/20 03:15 99 15 113/47 (69) 100 07/31/20 03:00 100 19 126/52 (76) 100 07/31/20 02:30 99 18 60 07/31/20 02:00 103 19 118/54 (75) 100 07/31/20 01:00 89 17 98/40 (59) 100 07/31/20 00:56 99 26 60 07/31/20 00:00 99.2 107 15 103/49 (67) 98 07/31/20 00:00 122 07/31/20 00:00 Mechanical Ventilator 07/31/20 00:00 80 07/30/20 23:46 109 117/41 07/30/20 23:00 138 19 121/39 (66) 97 07/30/20 22:00 119 20 114/48 (70) 100 Intake and Output 07/30/20 07/31/20 18:59 06:59 Intake Total 545 ml 360 ml Output Total 1230 ml 450 ml Balance -685 ml -90 ml Free Water 40 ml IV Total 220 ml Tube Feeding 285 ml 360 ml Output Urine Total 0 ml Stool Total 230 ml 450 ml Hemodialysis UF 1000 ml Laboratory Tests 07/30/20 23:37: POC Whole Blood Glucose [Pending] 07/31/20 04:00: White Blood Count 11.5H, Red Blood Count 1.96L, Hemoglobin 7.6L, Hematocrit 19.9L, Mean Corpuscular Volume 102H, Mean Corpuscular Hemoglobin 38.6H, Mean Corpuscular Hemoglobin Concent 38.0H, Red Cell Distribution Width 16.9H, Plat elet Count 173, Mean Platelet Volume 8.2, Neutrophils (%) (Auto) , Lymphocytes (%) (Auto) , Monocytes (%) (Auto) , Eosinophils (%) (Auto) , Basophils (%) (Auto) , Differential Total Cells Counted 100, Neutrophils % (Manual) 94H, Lymphocytes % (Manual) 2L, Monocytes % (Manual) 3, Eosinophils % (Manual) 1, Basophils % (Manual) 0, Band Neutrophils 0, Platelet Estimate Adequate, Platelet Morphology Normal, Polychromasia 1+, Hypochromasia 1+, Anisocytosis 1+, Sodium Level 142, Potassium Level 3.4L, Chloride Level 101, Carbon Dioxide Level 36H, Anion Gap 5, Blood Urea Nitrogen 50H, Creatinine 3.8H, Estimat Glomerular Filtration Rate 11.7, Glucose Level 140H, Calcium Level 8.4L, Phosphorus Level 3.1, Magnesium Level 1.9, Total Bilirubin 1.2H, Direct Bilirubin 0.8H, Aspartate Amino Transf (AST/SGOT) 46H, Alanine Aminotransferase (ALT/SGPT) 21, Alkaline Phosphatase 305H, C-Reactive Protein, Quantitative 30.4H, Total Protein 6.6, Albumin 2.2L, Globulin 4.4, Albumin/Globulin Ratio 0.5L 07/31/20 05:32: POC Whole Blood Glucose 131H 07/31/20 12:30: POC Whole Blood Glucose 97 07/31/20 13:02: POC Whole Blood Glucose 97 07/31/20 18:08: POC Whole Blood Glucose 129H Height (Feet): 5 Height (Inches): 4.00 Weight (Pounds): 180 Assessment/Plan Problem List: (1) Pneumonia ICD Codes: J18.9 - Pneumonia, unspecified organism SNOMED: 819123105 (2) Hypertension ICD Codes: I10 - Essential (primary) hypertension SNOMED: 08383283 (3) Renal failure ICD Codes: N19 - Unspecified kidney failure SNOMED: 37857647 (4) Anemia in chronic kidney disease (CKD) ICD Codes: N18.9 - Chronic kidney disease, unspecified; D63.1 - Anemia in chronic kidney disease SNOMED: 247135592 (5) weakness (6) ESRD (end stage renal disease) ICD Codes: N18.6 - End stage renal disease SNOMED: 99936401 (7) Diabetic nephropathy with proteinuria ICD Codes: E11.21 - Type 2 diabetes mellitus with diabetic nephropathy SNOMED: 08208516, 407983893 Status: progressing, deteriorating Assessment/Plan: no fever not improving no wheezing off pressor s/p HD niddm htn esrd on hd resp failure niddm covid positive pna Makenna Daniel MD Jul 31, 2020 21:26
--- NOTE | 2020-07-31 22:00 | NUR ---
NURSE NOTES: Turned q 2hrs prn with good skin care done.
[2020-08-01] VITALS (32 sets, daily range): BP systolic 77–155; BP diastolic 32–56
--- NOTE | 2020-08-01 | NUR ---
NURSE NOTES: Accucheck 303, with coverage.
[2020-08-01] MEDS: Piperacillin/Tazobactam 2.25 GM in D5W 55 ML IV SCH ×3 (01:57→17:25)
[2020-08-01] MEDS: Haloperidol 5mg/ml Inj IM PRN ×2 (03:49→12:13)
--- NOTE | 2020-08-01 03:49 | NUR ---
NURSE NOTES: Haldol 5mg im given to pts RT deltoid due to pts agitation.
--- NOTE | 2020-08-01 04:00 | NUR ---
NURSE NOTES: Febrile 103. cooling blanket was placed , cooling measures were started.
[2020-08-01] MEDS: Docusate 100mg/10ml Liq NG SCH ×3 (06:00→22:00)
--- NOTE | 2020-08-01 06:00 | NUR ---
NURSE NOTES: temp 101.4 cooling measures on progress.
[2020-08-01] MEDS: NovoLOG Insulin Flexpen SUBQ SCH ×3 (06:05→17:26)
--- NOTE | 2020-08-01 06:47 | Hematology/Onc Progress Note ---
Assessment/Plan Assessment/Plan Assessment/Plan 1. Pancytopenia with hx anemia due to underlying chronic disease. Have reviewed prior workup, ferritin is >1000, covid19++++ --> Continue to closely monitor. --> Transfuse if hgb <7 --> ferritin is >1000 --> give epogen, has been started 3x a week --> as per renal --> monitor for gi bleed, gi consulted --> hgb trend 7.8-->9.3->8.9->>11-->9.5->8.9->8->8.2-->7.6 --> plt 42-->50-->65-->104-->109-->176 --> ABX zosyn --> smear has been reviewed --> hep and hiv neg 2. Leukopenia likely reactive process v infection v from meds --> hepatitis and hiv prior negative --> neutropenic precautions if ANC <1500 --> trending stable --> imaging reviewed and no hsm / cirrhosis noted --> wbc 2.7-->3.6->>>2->5-->8-->17->12-->11 --> increase in wbc due to steriods --> ANC goal >1500 3. End-stage renal disease, on hemodialysis three times a week. --> renal consulted --> continue hd 4. History of coronary artery disease. --> cards reviewed --> diuresis prn 5. History of anemia due to low B12, low iron --> b12 is currently within normal limits --> reobtain q6mo 6. Dizziness and unsteady gait 7. Covid 19 --> rx per id 8. DVt ppsx with SCDs Greatly appreciate consultation and Selvin RN Subjective Allergies: Coded Allergies: No Known Allergies (Unverified , 05/12/17) All Systems: reviewed and negative except above Subjective 07/19 meds noted, s/p hd, bp has improved, no bleeding, labs reviewed 07/20 labs are noted, no bleeding, meds reviewed, no major changes, hgb 9.5 07/22 remains in the icu, no bleeding, meds reviewed, on nc 07/23 labs noted, no bleeding, in icu, hgb 8.7, plt 90 07/24 is intubated, hgb 11, no bleeding, plt are better, meds reviewed 07/25 remains on zosyn, labs are noted, no bleeding, icu, meds ntoed, s/p hd yesterday with renal 07/26 seen at bedside with Justo Toro, doing HD today, is in the icu, have ordered epo 07/27 black tarry stools overnight, no bleeding, labs reviewed, plt better 07/29 restraints, is agitated, no bleeding, hgb 8.2, improved s/p transfusion 07/30 restraints, is for rectal tube insertion today for diarrhea 07/31 hd was done yesterday, labs reviewed, meds noted, for duplex today then scds 08/01 hd as needed, did have fever overnight is on zosyn Objective Objective Current Medications Medications (Trade) Dose Ordered Sig/Toya Route PRN Reason Start Time Stop Time Status Last Admin Dose Admin Acetaminophen (Tylenol) 650 mg EVERY 6 HOURS PRN NG Mild Pain (Pain Scale 1-3) 07/29/20 09:05 08/28/20 09:04 07/29/20 23:16 Acetaminophen (Tylenol) 650 mg EVERY 6 HOURS PRN NG Temp >100.5 07/29/20 09:15 08/28/20 09:14 07/31/20 10:17 Chlorhexidine Gluconate (Yessi-Hex 2%) 1 applic DAILY@1999 TOPIC 07/21/20 20:00 10/19/20 19:59 07/31/20 20:11 Clonidine HCl (Catapres Tab) 0.1 mg Q4H PRN NG bp over 165 syst 07/21/20 12:00 10/14/20 22:44 Dextrose (Dextrose 50%) 25 ml Q30M PRN IV Hypoglycemia 07/22/20 08:00 10/20/20 07:59 Dextrose (Dextrose 50%) 50 ml Q30M PRN IV Hypoglycemia 07/22/20 08:00 10/20/20 07:59 Docusate Sodium (Colace) 100 mg EVERY 8 HOURS NG 07/29/20 22:00 08/20/20 12:59 Epoetin Panchito (Epoetin Panchito(ESRD on dialysis)) 10,000 unit THU-THU-THU SUBQ 07/30/20 21:00 10/25/20 20:59 07/30/20 20:49 Haloperidol Lactate (Haldol) 5 mg Q6H PRN IM Agitation 07/17/20 17:30 08/31/20 17:29 08/01/20 03:49 Insulin Aspart (NovoLOG) Q6HR SUBQ 07/22/20 08:15 10/20/20 11:29 08/01/20 06:05 Insulin Detemir (Levemir) 12 units Q12HR SUBQ 07/24/20 09:00 10/20/20 09:59 07/31/20 21:19 Loperamide HCl (Imodium) 2 mg Q6H PRN NG Diarrhea 07/29/20 15:45 08/28/20 15:44 Lorazepam (Ativan 2mg/ml 1ml) 1 mg Q4H PRN IV For Anxiety 07/30/20 06:37 08/06/20 06:36 07/31/20 14:35 Metoprolol Tartrate (Lopressor) 25 mg EVERY 6 HOURS NG 07/26/20 12:00 10/24/20 11:59 07/31/20 23:31 Pantoprazole (Protonix) 40 mg EVERY 12 HOURS IVP 07/21/20 21:00 08/20/20 20:59 07/31/20 20:51 Piperacillin Sod/ Tazobactam Sod 2.25 gm/Dextrose 55 ml @ 110 mls/hr Q8HR@0200,1000,1800 IV 07/28/20 18:00 08/04/20 17:59 08/01/20 01:57 Quetiapine Fumarate (SEROqueL) 50 mg Q12HR ORAL 07/30/20 21:00 09/13/20 20:59 07/31/20 20:50 Vitamin D (Vitamin D) 5,000 unit DAILY ORAL 07/29/20 09:00 08/28/20 08:59 07/31/20 08:59 Last 24 Hour Vital Signs Date Time Temp Pulse Resp B/P (MAP) Pulse Ox O2 Delivery O2 Flow Rate FiO2 08/01/20 06:07 80 08/01/20 06:00 112 79/32 08/01/20 05:00 137 27 82/47 (59) 100 08/01/20 04:00 Mechanical Ventilator 08/01/20 04:00 103.0 149 22 115/40 (65) 100 08/01/20 04:00 35 08/01/20 04:00 120 08/01/20 03:00 114 23 102/34 (56) 99 08/01/20 02:37 138 25 35 08/01/20 02:00 108 23 104/41 (62) 99 08/01/20 01:00 107 23 102/42 (62) 99 08/01/20 00:00 99.0 106 21 98/41 (60) 98 08/01/20 00:00 Mechanical Ventilator 08/01/20 00:00 45 08/01/20 00:00 109 07/31/20 23:31 114 109/43 07/31/20 23:00 101 22 109/43 (65) 96 07/31/20 22:38 108 21 35 07/31/20 22:00 101 20 93/38 (56) 97 07/31/20 21:00 107 21 116/41 (66) 97 07/31/20 20:00 Mechanical Ventilator 07/31/20 20:00 98.2 98 20 121/45 (70) 99 07/31/20 20:00 45 07/31/20 19:00 103 20 106/48 (67) 98 07/31/20 18:35 102 24 35 07/31/20 18:00 99 20 106/40 (62) 97 07/31/20 17:00 94 19 113/43 (66) 95 07/31/20 16:00 Mechanical Ventilator 07/31/20 16:00 98.9 91 21 90/60 (70) 100 07/31/20 16:00 89 07/31/20 16:00 45 07/31/20 15:00 97 18 88/42 (57) 100 07/31/20 14:35 102 22 101/40 99 07/31/20 14:30 90 18 35 07/31/20 14:00 111 22 101/44 (63) 100 07/31/20 13:07 122 105/44 07/31/20 13:00 117 20 96/37 (56) 100 07/31/20 12:15 115 22 105/52 (69) 99 07/31/20 12:00 Mechanical Ventilator 07/31/20 12:00 122 07/31/20 12:00 45 07/31/20 12:00 99.0 116 22 103/39 (60) 100 07/31/20 11:18 110 17 45 07/31/20 11:00 108 20 101/66 (78) 98 07/31/20 10:47 99.0 07/31/20 10:00 109 19 104/37 (59) 99 07/31/20 09:30 105 19 109/43 (65) 99 07/31/20 09:00 108 24 118/45 (69) 98 07/31/20 08:30 104 20 116/47 (70) 98 07/31/20 08:00 103 07/31/20 08:00 45 07/31/20 08:00 Mechanical Ventilator 07/31/20 08:00 102.3 105 22 120/45 (70) 98 07/31/20 07:00 96 20 124/49 (74) 100 07/31/20 06:35 93 20 45 07/31/20 06:00 95 19 106/46 (66) 100 07/31/20 05:43 93 95/42 07/31/20 05:15 93 13 110/41 99 07/31/20 05:00 98 20 126/50 (75) 100 07/31/20 04:45 95 21 132/51 100 07/31/20 04:00 Mechanical Ventilator 07/31/20 04:00 98.5 103 19 124/48 (73) 100 07/31/20 04:00 102 07/31/20 04:00 80 07/31/20 03:45 99 22 117/46 (69) 100 07/31/20 03:30 102 19 121/48 (72) 100 07/31/20 03:15 99 15 113/47 (69) 100 07/31/20 03:00 100 19 126/52 (76) 100 07/31/20 02:30 99 18 60 07/31/20 02:00 103 19 118/54 (75) 100 07/31/20 01:00 89 17 98/40 (59) 100 07/31/20 00:56 99 26 60 07/31/20 00:00 99.2 107 15 103/49 (67) 98 07/31/20 00:00 122 07/31/20 00:00 Mechanical Ventilator 07/31/20 00:00 80 07/30/20 23:46 109 117/41 07/30/20 23:00 138 19 121/39 (66) 97 07/30/20 22:00 119 20 114/48 (70) 100 07/30/20 21:00 111 18 122/45 (70) 96 07/30/20 20:00 Mechanical Ventilator 07/30/20 20:00 80 07/30/20 20:00 101.6 121 21 129/54 (79) 99 07/30/20 20:00 118 07/30/20 19:00 114 20 107/42 (63) 100 07/30/20 18:57 100 19 100 Mechanical Ventilator 60 07/30/20 18:56 100 19 60 07/30/20 18:00 111 20 100/41 (60) 99 07/30/20 17:34 114 122/52 07/30/20 17:00 114 18 122/52 (75) 100 07/30/20 16:00 99.4 07/30/20 16:00 99.4 115 21 156/47 (83) 100 07/30/20 16:00 Mechanical Ventilator 07/30/20 16:00 108 07/30/20 16:00 80 07/30/20 15:20 113 27 70 07/30/20 15:00 106 19 142/48 (79) 100 07/30/20 14:00 109 20 149/46 (80) 98 07/30/20 13:00 110 18 145/55 (85) 98 07/30/20 12:00 107 07/30/20 12:00 98.7 107 23 131/50 (77) 99 07/30/20 12:00 80 07/30/20 12:00 Mechanical Ventilator 07/30/20 11:00 110 22 147/41 (76) 97 07/30/20 10:36 113 28 70 07/30/20 10:00 99 19 128/55 (79) 98 07/30/20 09:00 104 17 118/51 (73) 97 07/30/20 08:30 80 07/30/20 08:00 100 07/30/20 08:00 94 07/30/20 08:00 Mechanical Ventilator 07/30/20 08:00 98.2 99 19 123/50 (74) 100 07/30/20 07:35 107 21 100 07/30/20 07:00 102 22 135/51 (79) 100 Intake and Output 07/31/20 08/01/20 19:00 07:00 Intake Total 530 ml 300 ml Output Total 210 ml 2000 ml Balance 320 ml -1700 ml Free Water 30 ml IV Total 110 ml Tube Feeding 360 ml 270 ml Other 60 ml Output Urine Total 0 ml Stool Total 210 ml Hemodialysis UF 2000 ml Labs Test 07/29/20 08:00 07/29/20 09:13 07/29/20 12:54 07/29/20 17:14 Arterial Blood pH 7.300 (7.350-7.450) Arterial Blood Partial Pressure CO2 70.8 mmHg (35.0-45.0) Arterial Blood Partial Pressure O2 74.0 mmHg (75.0-100.0) Arterial Blood HCO3 74.9 mmol/L (22.0-26.0) Arterial Blood Oxygen Saturation 94.6 % (95-100) Arterial Blood Base Excess 6.4 (-2-2) Faheem Test Positive POC Whole Blood Glucose 96 MG/DL (74-106) 117 MG/DL (74-106) 167 MG/DL (74-106) Test 07/29/20 21:02 07/30/20 00:15 07/30/20 05:00 07/30/20 07:54 POC Whole Blood Glucose 245 MG/DL (74-106) White Blood Count 11.1 K/UL (4.8-10.8) Red Blood Count 2.24 M/UL (4.20-5.40) Hemoglobin 7.6 G/DL (12.0-16.0) Hematocrit 21.8 % (37.0-47.0) Mean Corpuscular Volume 97 FL (80-99) Mean Corpuscular Hemoglobin 34.0 PG (27.0-31.0) Mean Corpuscular Hemoglobin Concent 34.9 G/DL (32.0-36.0) Red Cell Distribution Width 16.3 % (11.6-14.8) Platelet Count 160 K/UL (150-450) Mean Platelet Volume 8.9 FL (6.5-10.1) Neutrophils (%) (Auto) % (45.0-75.0) Lymphocytes (%) (Auto) % (20.0-45.0) Monocytes (%) (Auto) % (1.0-10.0) Eosinophils (%) (Auto) % (0.0-3.0) Basophils (%) (Auto) % (0.0-2.0) Differential Total Cells Counted 100 Neutrophils % (Manual) 94 % (45-75) Lymphocytes % (Manual) 4 % (20-45) Monocytes % (Manual) 2 % (1-10) Eosinophils % (Manual) 0 % (0-3) Basophils % (Manual) 0 % (0-2) Band Neutrophils 0 % (0-8) Platelet Estimate Adequate Platelet Morphology Normal Hypochromasia 1+ Anisocytosis 1+ Macrocytosis 1+ Prothrombin Time 13.1 SEC (9.30-11.50) Prothromb Time International Ratio 1.2 (0.9-1.1) Sodium Level 141 MMOL/L (136-145) Potassium Level 4.1 MMOL/L (3.5-5.1) Chloride Level 100 MMOL/L (98-107) Carbon Dioxide Level 32 MMOL/L (21-32) Anion Gap 9 mmol/L (5-15) Blood Urea Nitrogen 92 mg/dL (7-18) Creatinine 5.3 MG/DL (0.55-1.30) Estimat Glomerular Filtration Rate 8.0 mL/min (>60) Glucose Level 115 MG/DL (74-106) Calcium Level 8.6 MG/DL (8.5-10.1) Phosphorus Level 6.0 MG/DL (2.5-4.9) Magnesium Level 2.0 MG/DL (1.8-2.4) Iron Level 35 ug/dL (50-175) Total Iron Binding Capacity 104 ug/dL (250-450) Percent Iron Saturation 34 % (15-50) Unsaturated Iron Binding 69 ug/dL (112-346) Ferritin > 2000 NG/ML (8-388) Total Bilirubin 1.1 MG/DL (0.2-1.0) Direct Bilirubin 0.6 MG/DL (0.0-0.3) Aspartate Amino Transf (AST/SGOT) 22 U/L (15-37) Alanine Aminotransferase (ALT/SGPT) 15 U/L (12-78) Alkaline Phosphatase 197 U/L (46-116) C-Reactive Protein, Quantitative 30.3 mg/dL (0.00-0.90) Pro-B-Type Natriuretic Peptide > 43208 pg/mL (0-125) Total Protein 6.2 G/DL (6.4-8.2) Albumin 2.0 G/DL (3.4-5.0) Globulin 4.2 g/dL Albumin/Globulin Ratio 0.5 (1.0-2.7) Arterial Blood pH 7.371 (7.350-7.450) Arterial Blood Partial Pressure CO2 52.0 mmHg (35.0-45.0) Arterial Blood Partial Pressure O2 149.2 mmHg (75.0-100.0) Arterial Blood HCO3 29.5 mmol/L (22.0-26.0) Arterial Blood Oxygen Saturation 98.1 % (95-100) Arterial Blood Base Excess 3.6 (-2-2) Faheem Test Positive Test 07/30/20 09:11 07/30/20 12:29 07/30/20 17:03 07/30/20 20:29 POC Whole Blood Glucose 84 MG/DL (74-106) 81 MG/DL (74-106) 120 MG/DL (74-106) 116 MG/DL (74-106) Test 07/30/20 23:37 07/31/20 04:00 07/31/20 05:32 07/31/20 12:30 White Blood Count 11.5 K/UL (4.8-10.8) Red Blood Count 1.96 M/UL (4.20-5.40) Hemoglobin 7.6 G/DL (12.0-16.0) Hematocrit 19.9 % (37.0-47.0) Mean Corpuscular Volume 102 FL (80-99) Mean Corpuscular Hemoglobin 38.6 PG (27.0-31.0) Mean Corpuscular Hemoglobin Concent 38.0 G/DL (32.0-36.0) Red Cell Distribution Width 16.9 % (11.6-14.8) Platelet Count 173 K/UL (150-450) Mean Platelet Volume 8.2 FL (6.5-10.1) Neutrophils (%) (Auto) % (45.0-75.0) Lymphocytes (%) (Auto) % (20.0-45.0) Monocytes (%) (Auto) % (1.0-10.0) Eosinophils (%) (Auto) % (0.0-3.0) Basophils (%) (Auto) % (0.0-2.0) Differential Total Cells Counted 100 Neutrophils % (Manual) 94 % (45-75) Lymphocytes % (Manual) 2 % (20-45) Monocytes % (Manual) 3 % (1-10) Eosinophils % (Manual) 1 % (0-3) Basophils % (Manual) 0 % (0-2) Band Neutrophils 0 % (0-8) Platelet Estimate Adequate Platelet Morphology Normal Polychromasia 1+ Hypochromasia 1+ Anisocytosis 1+ Sodium Level 142 MMOL/L (136-145) Potassium Level 3.4 MMOL/L (3.5-5.1) Chloride Level 101 MMOL/L (98-107) Carbon Dioxide Level 36 MMOL/L (21-32) Anion Gap 5 mmol/L (5-15) Blood Urea Nitrogen 50 mg/dL (7-18) Creatinine 3.8 MG/DL (0.55-1.30) Estimat Glomerular Filtration Rate 11.7 mL/min (>60) Glucose Level 140 MG/DL (74-106) Calcium Level 8.4 MG/DL (8.5-10.1) Phosphorus Level 3.1 MG/DL (2.5-4.9) Magnesium Level 1.9 MG/DL (1.8-2.4) Total Bilirubin 1.2 MG/DL (0.2-1.0) Direct Bilirubin 0.8 MG/DL (0.0-0.3) Aspartate Amino Transf (AST/SGOT) 46 U/L (15-37) Alanine Aminotransferase (ALT/SGPT) 21 U/L (12-78) Alkaline Phosphatase 305 U/L (46-116) C-Reactive Protein, Quantitative 30.4 mg/dL (0.00-0.90) Total Protein 6.6 G/DL (6.4-8.2) Albumin 2.2 G/DL (3.4-5.0) Globulin 4.4 g/dL Albumin/Globulin Ratio 0.5 (1.0-2.7) POC Whole Blood Glucose 131 MG/DL (74-106) 97 MG/DL (74-106) Test 07/31/20 13:02 07/31/20 18:08 07/31/20 23:24 POC Whole Blood Glucose 97 MG/DL (74-106) 129 MG/DL (74-106) 303 MG/DL (74-106) Height (Feet): 5 Height (Inches): 4.00 Weight (Pounds): 180 Objective Physical Exam General Appearance: alert, obese, Chronically Ill Neck: full range of motion Respiratory: wheezing Cardiovascular: edema Gastrointestinal: normal inspection, soft Neurologic: alert, lead cook III-XII nml as tested Psychiatric: normal inspection, judgement/insight normal Skin: other Carl Daniels MD Aug 01, 2020 06:47
--- NOTE | 2020-08-01 07:30 | NUR ---
NURSE NOTES: Patient received from Nini LITTLE. Patient restless responding to voice but not making any meaningful eye contact. Breath sounds clear cardiac sounds benign. Afib on monitor. RR even and unlabored on ventilator. AC 16 500 80% P10. OGT in place with feeding infusing. Rectal tube in place with stool present. L AV shut present with thrill and bruit. R Femoral TLC in place with all ports flushed and patent. Side rails upx2,call light within reach, bed low and locked.
--- NOTE | 2020-08-01 07:38 | NUR ---
NURSE HAND-OFF REPORT: Latest Vital Signs: Temperature 103.0 , Pulse 115 , B/P 86 /32 , Respiratory Rate 22 , O2 SAT 100 , Nasal Cannula, O2 Flow Rate 3.0 . Vital Sign Comment: EKG Rhythm: Atrial Fibrillation Rhythm change?: N Notified?: Roxanne Gatica MD Response: Latest Elizabeth Fall Score: 50 Fall Risk: High Risk Safety Measures: Call light Within Reach, Bed Alarm Zone 1, Side Rails Side Rails x3, Bed position Low and Locked. Fall Precautions: Door Sign Report given to Laurie LITTLE.
--- NOTE | 2020-08-01 08:00 | NUR ---
NURSE NOTES: Patient observed reaching for ETT. BL soft wrist restraints order received and applied.
[2020-08-01] MEDS: Pantoprazole Inj IVP SCH ×2 (08:43→20:40)
[2020-08-01] MEDS: Vitamin D 1000 units Tab ORAL SCH (08:44)
[2020-08-01] MEDS: LORazepam Inj 2mg/ml 1ml IV PRN (08:48)
--- NOTE | 2020-08-01 09:00 | NUR ---
NURSE NOTES: Temp increasing. Cooling blanket still on. Cooling measures applied. Tylenol given.
[2020-08-01] MEDS: Levemir Flexpen SUBQ SCH ×2 (09:34→21:57)
--- NOTE | 2020-08-01 10:05 | Pulmonology Progress Note ---
Subjective ROS Limited/Unobtainable: Yes Interval Events: Now on 80% FiO2, PEEP 10 Constitutional: Reports: no symptoms, other - Ya=741.6 last night HEENT: Repors: no symptoms Respiratory: Reports: no symptoms Cardiovascular: Reports: no symptoms Gastrointestinal/Abdominal: Reports: no symptoms Genitourinary: Reports: no symptoms Allergies: Coded Allergies: No Known Allergies (Unverified , 05/12/17) All Systems: reviewed and negative except above Objective Last 24 Hour Vital Signs Date Time Temp Pulse Resp B/P (MAP) Pulse Ox O2 Delivery O2 Flow Rate FiO2 08/01/20 09:34 126 24 103/40 100 08/01/20 08:48 122 22 103/37 100 08/01/20 07:00 110 17 95/34 (54) 100 08/01/20 07:00 118 27 92/47 (62) 100 08/01/20 06:30 110 17 95/32 (53) 100 08/01/20 06:07 80 08/01/20 06:00 120 27 95/47 (63) 100 08/01/20 06:00 112 79/32 08/01/20 06:00 115 22 86/32 (50) 100 08/01/20 06:00 112 17 79/32 (48) 100 08/01/20 05:00 137 27 82/47 (59) 100 08/01/20 04:00 Mechanical Ventilator 08/01/20 04:00 103.0 149 22 115/40 (65) 100 08/01/20 04:00 35 08/01/20 04:00 120 08/01/20 03:00 114 23 102/34 (56) 99 08/01/20 02:37 138 25 35 08/01/20 02:00 108 23 104/41 (62) 99 08/01/20 01:00 107 23 102/42 (62) 99 08/01/20 00:00 99.0 106 21 98/41 (60) 98 08/01/20 00:00 Mechanical Ventilator 08/01/20 00:00 45 08/01/20 00:00 109 07/31/20 23:31 114 109/43 07/31/20 23:00 101 22 109/43 (65) 96 07/31/20 22:38 108 21 35 07/31/20 22:00 101 20 93/38 (56) 97 07/31/20 21:00 107 21 116/41 (66) 97 07/31/20 20:00 Mechanical Ventilator 07/31/20 20:00 98.2 98 20 121/45 (70) 99 07/31/20 20:00 45 07/31/20 19:00 103 20 106/48 (67) 98 07/31/20 18:35 102 24 35 07/31/20 18:00 99 20 106/40 (62) 97 07/31/20 17:00 94 19 113/43 (66) 95 07/31/20 16:00 Mechanical Ventilator 07/31/20 16:00 98.9 91 21 90/60 (70) 100 07/31/20 16:00 89 07/31/20 16:00 45 07/31/20 15:00 97 18 88/42 (57) 100 07/31/20 14:35 102 22 101/40 99 07/31/20 14:30 90 18 35 07/31/20 14:00 111 22 101/44 (63) 100 07/31/20 13:07 122 105/44 07/31/20 13:00 117 20 96/37 (56) 100 07/31/20 12:15 115 22 105/52 (69) 99 07/31/20 12:00 Mechanical Ventilator 07/31/20 12:00 122 07/31/20 12:00 45 07/31/20 12:00 99.0 116 22 103/39 (60) 100 07/31/20 11:18 110 17 45 07/31/20 11:00 108 20 101/66 (78) 98 07/31/20 10:47 99.0 Intake and Output 07/31/20 08/01/20 19:00 07:00 Intake Total 530 ml 390 ml Output Total 210 ml 4150 ml Balance 320 ml -3760 ml Free Water 60 ml IV Total 110 ml Tube Feeding 360 ml 330 ml Other 60 ml Output Urine Total 0 ml Stool Total 210 ml 2150 ml Hemodialysis UF 2000 ml General Appearance: WD/WN, no acute distress, other - intubation HEENT: normocephalic Respiratory: chest wall non-tender, crackles/rales Cardiovascular: normal rate, regular rhythm Laboratory Tests 07/31/20 12:30: POC Whole Blood Glucose 97 07/31/20 13:02: POC Whole Blood Glucose 97 07/31/20 18:08: POC Whole Blood Glucose 129H 07/31/20 23:24: POC Whole Blood Glucose 303H Current Medications Medications (Trade) Dose Ordered Sig/Toya Route PRN Reason Start Time Stop Time Status Last Admin Dose Admin Acetaminophen (Tylenol) 650 mg EVERY 6 HOURS PRN NG Mild Pain (Pain Scale 1-3) 07/29/20 09:05 08/28/20 09:04 07/29/20 23:16 Acetaminophen (Tylenol) 650 mg EVERY 6 HOURS PRN NG Temp >100.5 07/29/20 09:15 08/28/20 09:14 07/31/20 10:17 Chlorhexidine Gluconate (Yessi-Hex 2%) 1 applic DAILY@1999 TOPIC 07/21/20 20:00 10/19/20 19:59 07/31/20 20:11 Clonidine HCl (Catapres Tab) 0.1 mg Q4H PRN NG bp over 165 syst 07/21/20 12:00 10/14/20 22:44 Dextrose (Dextrose 50%) 25 ml Q30M PRN IV Hypoglycemia 07/22/20 08:00 10/20/20 07:59 Dextrose (Dextrose 50%) 50 ml Q30M PRN IV Hypoglycemia 07/22/20 08:00 10/20/20 07:59 Docusate Sodium (Colace) 100 mg EVERY 8 HOURS NG 07/29/20 22:00 08/20/20 12:59 Epoetin Panchito (Epoetin Panchito(ESRD on dialysis)) 10,000 unit THU-THU-THU SUBQ 07/30/20 21:00 10/25/20 20:59 07/30/20 20:49 Haloperidol Lactate (Haldol) 5 mg Q6H PRN IM Agitation 07/17/20 17:30 08/31/20 17:29 08/01/20 03:49 Insulin Aspart (NovoLOG) Q6HR SUBQ 07/22/20 08:15 10/20/20 11:29 08/01/20 06:05 Insulin Detemir (Levemir) 12 units Q12HR SUBQ 07/24/20 09:00 10/20/20 09:59 08/01/20 09:34 Loperamide HCl (Imodium) 2 mg Q6H PRN NG Diarrhea 07/29/20 15:45 08/28/20 15:44 Lorazepam (Ativan 2mg/ml 1ml) 1 mg Q4H PRN IV For Anxiety 07/30/20 06:37 08/06/20 06:36 08/01/20 08:48 Metoprolol Tartrate (Lopressor) 25 mg EVERY 6 HOURS NG 07/26/20 12:00 10/24/20 11:59 07/31/20 23:31 Pantoprazole (Protonix) 40 mg EVERY 12 HOURS IVP 07/21/20 21:00 08/20/20 20:59 08/01/20 08:43 Piperacillin Sod/ Tazobactam Sod 2.25 gm/Dextrose 55 ml @ 110 mls/hr Q8HR@0200,1000,1800 IV 07/28/20 18:00 08/04/20 17:59 08/01/20 09:54 Quetiapine Fumarate (SEROqueL) 50 mg Q12HR ORAL 07/30/20 21:00 09/13/20 20:59 08/01/20 08:44 Vitamin D (Vitamin D) 5,000 unit DAILY ORAL 07/29/20 09:00 08/28/20 08:59 08/01/20 08:44 Assessment/Plan Assessment/Plan Assessment/Plan 1. COVID-19 pneumonia. 2. COPD 3. Pneumonia 4. Hypertensive emergency. - Blood pressure controlled. 5. Leukocytosis.; improving 6. Anemia. 7. Hyponatremia.; resolved 8. Hyperkalemia.; resolved 9. Hypochloridemia.; resolved 10. Hyperglycemia. 11. ESRD, on dialysis. 12. Respiratory failure; now intubated PLAN Continue O2; currently 80% Vent; AC mode On PEEP now 10 CXR shows almost complete whiteout both lungs Needs more HD Discussed with Dr Falk Will attempt wean when FiO2 and PEEP are lower Consider prbc transfusion Levy aLw MD, MD Aug 01, 2020 10:05
--- NOTE | 2020-08-01 10:23 | NUR ---
NURSE NOTES: Fever now improved at 100.5F Rectal. HR still elevated. Patient still agitated despite Ativan administration.
[2020-08-01 12:50] LABS: MEAN CORPUSCULAR VOLUME 102 FL (80-99); PLATELET COUNT 146 K/UL (150-450); RED BLOOD COUNT 2.16 M/UL (4.20-5.40); RED CELL DISTRIBUTION WIDTH 18.2 % (11.6-14.8); WHITE BLOOD COUNT 12.5 K/UL (4.8-10.8)
--- NOTE | 2020-08-01 12:51 | Infectious Diseases Prog Note ---
Assessment/Plan Assessment/Plan antibiotics ; zosyn A 1. COVID-19 pneumonia on 80 % Fi O2, 100 % saturation 2. End-stage renal disease on hemodialysis, 3. COPD, 4. Asthma, 5. Hypertension, 6. Diabetes mellitus 7. Systolic heart failure, 8. Aortic stenosis. 9. hypoxemic respiratory failure P 1. continue zosyn 2. continue isolation Subjective ROS Limited/Unobtainable: Yes Allergies: Coded Allergies: No Known Allergies (Unverified , 05/12/17) Objective Last 24 Hour Vital Signs Date Time Temp Pulse Resp B/P (MAP) Pulse Ox O2 Delivery O2 Flow Rate FiO2 08/01/20 12:14 98 128/50 08/01/20 12:00 97 22 128/50 (76) 100 08/01/20 12:00 93 08/01/20 11:00 97 22 116/42 (66) 100 08/01/20 10:00 100.4 115 23 114/42 (66) 100 08/01/20 09:34 126 24 103/40 100 08/01/20 09:00 102.5 111 22 103/40 (61) 100 08/01/20 08:48 122 22 103/37 100 08/01/20 08:00 80 08/01/20 08:00 92 08/01/20 08:00 101.2 113 21 103/37 (59) 100 08/01/20 08:00 Mechanical Ventilator 08/01/20 07:00 110 17 95/34 (54) 100 08/01/20 07:00 118 27 92/47 (62) 100 08/01/20 06:30 110 17 95/32 (53) 100 08/01/20 06:07 80 08/01/20 06:00 120 27 95/47 (63) 100 08/01/20 06:00 112 79/32 08/01/20 06:00 115 22 86/32 (50) 100 08/01/20 06:00 112 17 79/32 (48) 100 08/01/20 05:00 137 27 82/47 (59) 100 08/01/20 04:00 Mechanical Ventilator 08/01/20 04:00 103.0 149 22 115/40 (65) 100 08/01/20 04:00 35 08/01/20 04:00 120 12/30/20 03:00 114 23 102/34 (56) 99 08/01/20 02:37 138 25 35 08/01/20 02:00 108 23 104/41 (62) 99 08/01/20 01:00 107 23 102/42 (62) 99 08/01/20 00:00 99.0 106 21 98/41 (60) 98 08/01/20 00:00 Mechanical Ventilator 08/01/20 00:00 45 08/01/20 00:00 109 07/31/20 23:31 114 109/43 07/31/20 23:00 101 22 109/43 (65) 96 07/31/20 22:38 108 21 35 07/31/20 22:00 101 20 93/38 (56) 97 07/31/20 21:00 107 21 116/41 (66) 97 07/31/20 20:00 Mechanical Ventilator 07/31/20 20:00 98.2 98 20 121/45 (70) 99 07/31/20 20:00 45 07/31/20 19:00 103 20 106/48 (67) 98 07/31/20 18:35 102 24 35 07/31/20 18:00 99 20 106/40 (62) 97 07/31/20 17:00 94 19 113/43 (66) 95 07/31/20 16:00 Mechanical Ventilator 07/31/20 16:00 98.9 91 21 90/60 (70) 100 07/31/20 16:00 89 07/31/20 16:00 45 07/31/20 15:00 97 18 88/42 (57) 100 07/31/20 14:35 102 22 101/40 99 07/31/20 14:30 90 18 35 07/31/20 14:00 111 22 101/44 (63) 100 07/31/20 13:07 122 105/44 07/31/20 13:00 117 20 96/37 (56) 100 Height (Feet): 5 Height (Inches): 4.00 Weight (Pounds): 180 HEENT: other - intubated Laboratory Tests Test 07/31/20 13:02 07/31/20 18:08 07/31/20 23:24 08/01/20 12:09 POC Whole Blood Glucose 97 MG/DL (74-106) 129 MG/DL (74-106) H 303 MG/DL (74-106) H White Blood Count Pending Red Blood Count Pending Hemoglobin Pending Hematocrit Pending Mean Corpuscular Volume Pending Mean Corpuscular Hemoglobin Pending Mean Corpuscular Hemoglobin Concent Pending Red Cell Distribution Width Pending Platelet Count Pending Mean Platelet Volume Pending Neutrophils (%) (Auto) Pending Lymphocytes (%) (Auto) Pending Monocytes (%) (Auto) Pending Eosinophils (%) (Auto) Pending Basophils (%) (Auto) Pending Sodium Level Pending Potassium Level Pending Chloride Level Pending Carbon Dioxide Level Pending Blood Urea Nitrogen Pending Creatinine Pending Estimat Glomerular Filtration Rate Pending Glucose Level Pending Calcium Level Pending Phosphorus Level Pending Total Bilirubin Pending Aspartate Amino Transf (AST/SGOT) Pending Alanine Aminotransferase (ALT/SGPT) Pending Alkaline Phosphatase Pending C-Reactive Protein, Quantitative Pending Pro-B-Type Natriuretic Peptide Pending Total Protein Pending Albumin Pending Globulin Pending Current Medications Medications (Trade) Dose Ordered Sig/Toya Route PRN Reason Start Time Stop Time Status Last Admin Dose Admin Acetaminophen (Tylenol) 650 mg EVERY 6 HOURS PRN NG Mild Pain (Pain Scale 1-3) 07/29/20 09:05 08/28/20 09:04 07/29/20 23:16 Acetaminophen (Tylenol) 650 mg EVERY 6 HOURS PRN NG Temp >100.5 07/29/20 09:15 08/28/20 09:14 07/31/20 10:17 Chlorhexidine Gluconate (Yessi-Hex 2%) 1 applic DAILY@1999 TOPIC 07/21/20 20:00 10/19/20 19:59 07/31/20 20:11 Clonidine HCl (Catapres Tab) 0.1 mg Q4H PRN NG bp over 165 syst 07/21/20 12:00 10/14/20 22:44 Dextrose (Dextrose 50%) 25 ml Q30M PRN IV Hypoglycemia 07/22/20 08:00 10/20/20 07:59 Dextrose (Dextrose 50%) 50 ml Q30M PRN IV Hypoglycemia 07/22/20 08:00 10/20/20 07:59 Docusate Sodium (Colace) 100 mg EVERY 8 HOURS NG 07/29/20 22:00 08/20/20 12:59 Epoetin Panchito (Epoetin Panchito(ESRD on dialysis)) 10,000 unit THU-THU-THU SUBQ 07/30/20 21:00 10/25/20 20:59 07/30/20 20:49 Haloperidol Lactate (Haldol) 5 mg Q6H PRN IM Agitation 07/17/20 17:30 08/31/20 17:29 08/01/20 12:13 Insulin Aspart (NovoLOG) Q6HR SUBQ 07/22/20 08:15 10/20/20 11:29 08/01/20 12:40 Insulin Detemir (Levemir) 12 units Q12HR SUBQ 07/24/20 09:00 10/20/20 09:59 08/01/20 09:34 Loperamide HCl (Imodium) 2 mg Q6H PRN NG Diarrhea 07/29/20 15:45 08/28/20 15:44 Lorazepam (Ativan 2mg/ml 1ml) 1 mg Q4H PRN IV For Anxiety 07/30/20 06:37 08/06/20 06:36 08/01/20 08:48 Metoprolol Tartrate (Lopressor) 25 mg EVERY 6 HOURS NG 07/26/20 12:00 10/24/20 11:59 08/01/20 12:14 Pantoprazole (Protonix) 40 mg EVERY 12 HOURS IVP 07/21/20 21:00 08/20/20 20:59 08/01/20 08:43 Piperacillin Sod/ Tazobactam Sod 2.25 gm/Dextrose 55 ml @ 110 mls/hr Q8HR@0200,1000,1800 IV 07/28/20 18:00 08/04/20 17:59 08/01/20 09:54 Quetiapine Fumarate (SEROqueL) 50 mg Q12HR ORAL 07/30/20 21:00 09/13/20 20:59 08/01/20 08:44 Vitamin D (Vitamin D) 5,000 unit DAILY ORAL 07/29/20 09:00 08/28/20 08:59 08/01/20 08:44 Regan Moon MD Aug 01, 2020 12:51
--- NOTE | 2020-08-01 13:02 | NUR ---
NURSE NOTES: Patient stable at this time. HR now controlled. Still very restless and agitated after ativan and haldol. Temp now WNL.
[2020-08-01 13:16] LABS: ALANINE AMINOTRANSFERASE 36 U/L (12-78); ALBUMIN 2.3 G/DL (3.4-5.0); ALBUMIN/GLOBULIN RATIO 0.5 (1.0-2.7); ALKALINE PHOSPHATASE 302 U/L (46-116); ANION GAP 14 mmol/L (5-15); ASPARTATE AMINO TRANSFERASE 137 U/L (15-37); BILIRUBIN,TOTAL 1.4 MG/DL (0.2-1.0); BLOOD UREA NITROGEN 97 mg/dL (7-18); CALCIUM 8.3 MG/DL (8.5-10.1); CARBON DIOXIDE 28 MMOL/L (21-32); CHLORIDE 97 MMOL/L (98-107); CREATININE 5.6 MG/DL (0.55-1.30); PHOSPHORUS 5.7 MG/DL (2.5-4.9); POTASSIUM 4.2 MMOL/L (3.5-5.1); SODIUM 139 MMOL/L (136-145)
--- NOTE | 2020-08-01 14:10 | NUR ---
R[employer]F [employer] SC[employer] SI; RESP FAILURE ETT/VENT SUPPORT COVID PNA T. 100.4 HR 115 RR 23 B/P 116/46 AC 16 TV 500 FIO2 80% PEEP 10 WBC 12.5 H/H 7.0/22.0 IS: ZOSYN IV ICU STATUS
--- NOTE | 2020-08-01 15:01 | Nephrology Progress Note ---
Assessment/Plan Problem List: (1) Hypertensive kidney disease (2) ESRD (end stage renal disease) (3) Hyperkalemia (4) Suspected 2019 novel coronavirus infection (5) Acute respiratory failure Assessment 70-year-old female with end-stage renal disease Presented with volume overload and hyperkalemia Suspected COVID-19 virus infection Hypertensive emergency Diabetes mellitus CHF Plan August 01: Discussed with RN. Patient had dry ultrafiltration yesterday. Patient will have dialysis and ultrafiltration today. Labs reviewed. Continue per consultants. July 31: Discussed with RN. Discussed with receipt and report clerk. Chest x-ray still looks wet. Despite of having been dialyzed yesterday we arrange for dialysis and ultrafiltration today and probably tomorrow. Labs reviewed. Per orders. July 30: Patient on dialysis now. Tolerating well. Labs and medications reviewed. Continue per consultants. Hemoglobin mid sevens. On 10,000 units of Epogen. Transfusion if needed. July 29: Dialyzed yesterday. Due for dialysis tomorrow. Labs reviewed. Iron panel ordered. Epogen dose increased. Continue per consultants. Vitamin D level pending July 28: Patient is about to get started on dialysis. Labs reviewed. Blood pressure 90 to 100 systolic. Continue per consultants. July 27: Patient dialyzed July 26. Labs reviewed. Status quo. Dialysis again in a.m. July 26: Patient was dialyzed this morning. Labs reviewed. Remains intubated on ventilator. Full code. Tachycardic. Continue per consultants. Per orders. July 25: Patient was dialyzed yesterday. 2 L ultrafiltrate it. Discussed with cushion sewer today. Attempts at weaning is being tried. Patient will be dialyzed again tomorrow. In view of ejection fraction of 40 to 45% and low blood pressure will adjust the blood pressure medication dosages and give 0.25 mg digoxin IV once. Continue to monitor renal parameters. July 24: Due for dialysis today. Labs reviewed. Low phosphorus replaced. Continue pulmonary support and ID management. Medication list reviewed. BP medication adjusted. July 23: Dialyzed yesterday. Labs reviewed. ABG noted. Patient hypoxic. Vent setting adjusted by cushion sewer. Continue current care. Dialysis tomorrow. July 22: Patient on ventilator requiring positive end expiratory pressure. Labs reviewed. Blood sugar elevated. Levemir insulin ordered. Dialysis today. Continue per consultants. July 21: Patient now in ICU. Intubated on ventilator. Was dialyzed. Blood pressure well maintained. Has NG tube. Will start medication through NG tube and start feeding. Continue per consultants. Hemodialysis as needed. July 20: Patient seen and examined. Discussed with RN. Remains encephalopathic. Poor ABG results. Patient at high risk at this stage. We will transfer patients to ICU for possible airway support. Patient due for dialysis today. Hyperkalemia probably secondary to acidosis. Will arrange for NG tube insertion and give medication through NG tube. July 19: Mental status appears slightly improved. Was dialyzed 2 days in a row. Blood pressure medication adjusted. Next dialysis tomorrow. Continue per consultants. July 18: Patient encephalopathic, was dialyzed yesterday and had 3 L removed. Will order dialysis again today. Continue per ID. Blood pressure medication adjusted. July 17: Stat hemodialysis ordered. Kayexalate for high potassium. Pulmonary support with oxygen or BiPAP as needed Blood pressure support with proper parameters Per orders Subjective ROS Limited/Unobtainable: Yes Objective Objective Last 24 Hour Vital Signs Date Time Temp Pulse Resp B/P (MAP) Pulse Ox O2 Delivery O2 Flow Rate FiO2 08/01/20 13:00 82 17 129/52 (77) 100 08/01/20 12:14 98 128/50 08/01/20 12:00 97 22 128/50 (76) 100 08/01/20 12:00 Mechanical Ventilator 08/01/20 12:00 80 08/01/20 12:00 93 08/01/20 11:30 102 19 80 08/01/20 11:00 97 22 116/42 (66) 100 08/01/20 10:00 100.4 115 23 114/42 (66) 100 08/01/20 09:34 126 24 103/40 100 08/01/20 09:00 102.5 111 22 103/40 (61) 100 08/01/20 08:48 122 22 103/37 100 08/01/20 08:00 80 08/01/20 08:00 92 08/01/20 08:00 101.2 113 21 103/37 (59) 100 08/01/20 08:00 Mechanical Ventilator 08/01/20 07:30 113 23 80 08/01/20 07:00 110 17 95/34 (54) 100 08/01/20 07:00 118 27 92/47 (62) 100 08/01/20 06:30 110 17 95/32 (53) 100 08/01/20 06:07 80 08/01/20 06:00 120 27 95/47 (63) 100 08/01/20 06:00 112 79/32 08/01/20 06:00 115 22 86/32 (50) 100 08/01/20 06:00 112 17 79/32 (48) 100 08/01/20 05:00 137 27 82/47 (59) 100 08/01/20 04:00 Mechanical Ventilator 08/01/20 04:00 103.0 149 22 115/40 (65) 100 08/01/20 04:00 35 08/01/20 04:00 120 08/01/20 03:00 114 23 102/34 (56) 99 08/01/20 02:37 138 25 35 08/01/20 02:00 108 23 104/41 (62) 99 08/01/20 01:00 107 23 102/42 (62) 99 08/01/20 00:00 99.0 106 21 98/41 (60) 98 08/01/20 00:00 Mechanical Ventilator 08/01/20 00:00 45 08/01/20 00:00 109 07/31/20 23:31 114 109/43 07/31/20 23:00 101 22 109/43 (65) 96 07/31/20 22:38 108 21 35 07/31/20 22:00 101 20 93/38 (56) 97 07/31/20 21:00 107 21 116/41 (66) 97 07/31/20 20:00 Mechanical Ventilator 07/31/20 20:00 98.2 98 20 121/45 (70) 99 07/31/20 20:00 45 07/31/20 19:00 103 20 106/48 (67) 98 07/31/20 18:35 102 24 35 07/31/20 18:00 99 20 106/40 (62) 97 07/31/20 17:00 94 19 113/43 (66) 95 07/31/20 16:00 Mechanical Ventilator 07/31/20 16:00 98.9 91 21 90/60 (70) 100 07/31/20 16:00 89 07/31/20 16:00 45 Intake and Output 07/31/20 08/01/20 19:00 07:00 Intake Total 530 ml 420 ml Output Total 210 ml 4150 ml Balance 320 ml -3730 ml Free Water 60 ml IV Total 110 ml Tube Feeding 360 ml 360 ml Other 60 ml Output Urine Total 0 ml Stool Total 210 ml 2150 ml Hemodialysis UF 2000 ml Current Medications Medications (Trade) Dose Ordered Sig/Toya Route PRN Reason Start Time Stop Time Status Last Admin Dose Admin Acetaminophen (Tylenol) 650 mg EVERY 6 HOURS PRN NG Mild Pain (Pain Scale 1-3) 07/29/20 09:05 08/28/20 09:04 07/29/20 23:16 Acetaminophen (Tylenol) 650 mg EVERY 6 HOURS PRN NG Temp >100.5 07/29/20 09:15 08/28/20 09:14 07/31/20 10:17 Chlorhexidine Gluconate (Yessi-Hex 2%) 1 applic DAILY@1999 TOPIC 07/21/20 20:00 10/19/20 19:59 07/31/20 20:11 Clonidine HCl (Catapres Tab) 0.1 mg Q4H PRN NG bp over 165 syst 07/21/20 12:00 10/14/20 22:44 Dextrose (Dextrose 50%) 25 ml Q30M PRN IV Hypoglycemia 07/22/20 08:00 10/20/20 07:59 Dextrose (Dextrose 50%) 50 ml Q30M PRN IV Hypoglycemia 07/22/20 08:00 10/20/20 07:59 Docusate Sodium (Colace) 100 mg EVERY 8 HOURS NG 07/29/20 22:00 08/20/20 12:59 Epoetin Panchito (Epoetin Panchito(ESRD on dialysis)) 10,000 unit THU-THU-THU SUBQ 07/30/20 21:00 10/25/20 20:59 07/30/20 20:49 Haloperidol Lactate (Haldol) 5 mg Q6H PRN IM Agitation 07/17/20 17:30 08/31/20 17:29 08/01/20 12:13 Insulin Aspart (NovoLOG) Q6HR SUBQ 07/22/20 08:15 10/20/20 11:29 08/01/20 12:40 Insulin Detemir (Levemir) 12 units Q12HR SUBQ 07/24/20 09:00 10/20/20 09:59 08/01/20 09:34 Loperamide HCl (Imodium) 2 mg Q6H PRN NG Diarrhea 07/29/20 15:45 08/28/20 15:44 Lorazepam (Ativan 2mg/ml 1ml) 1 mg Q4H PRN IV For Anxiety 07/30/20 06:37 08/06/20 06:36 08/01/20 08:48 Metoprolol Tartrate (Lopressor) 25 mg EVERY 6 HOURS NG 07/26/20 12:00 10/24/20 11:59 08/01/20 12:14 Pantoprazole (Protonix) 40 mg EVERY 12 HOURS IVP 07/21/20 21:00 08/20/20 20:59 08/01/20 08:43 Piperacillin Sod/ Tazobactam Sod 2.25 gm/Dextrose 55 ml @ 110 mls/hr Q8HR@0200,1000,1800 IV 07/28/20 18:00 08/04/20 17:59 08/01/20 09:54 Quetiapine Fumarate (SEROqueL) 50 mg Q12HR ORAL 07/30/20 21:00 09/13/20 20:59 08/01/20 08:44 Vitamin D (Vitamin D) 5,000 unit DAILY ORAL 07/29/20 09:00 08/28/20 08:59 08/01/20 08:44 Laboratory Tests 07/31/20 18:08: POC Whole Blood Glucose 129H 07/31/20 21:07: POC Whole Blood Glucose 223H 07/31/20 23:24: POC Whole Blood Glucose 303H 08/01/20 05:17: POC Whole Blood Glucose 360H 08/01/20 12:09: White Blood Count 12.5H, Red Blood Count 2.16L, Hemoglobin 7.0L, Hematocrit 22.0L, Mean Corpuscular Volume 102H, Mean Corpuscular Hemoglobin 32.5H, Mean Corpuscular Hemoglobin Concent 31.9L, Red Cell Distribution Width 18.2H, Platelet Count 146L, Mean Platelet Volume 8.7, Neutrophils (%) (Auto) , Lymphocytes (%) (Auto) , Monocytes (%) (Auto) , Eosinophils (%) (Auto) , Basophils (%) (Auto) , Differential Total Cells Counted 100, Neutrophils % (Manual) 97H, Lymphocytes % (Manual) 1L, Monocytes % (Manual) 2, Eosinophils % (Manual) 0, Basophils % (Manual) 0, Band Neutrophils 0, Platelet Estimate DecreasedL, Platelet Morphology Normal, Anisocytosis 1+, Macrocytosis 1+, Sodium Level 139, Potassium Level 4.2, Chloride Level 97L, Carbon Dioxide Level 28, Anion Gap 14, Blood Urea Nitrogen 97H, Creatinine 5.6H, Estimat Glomerular Filtration Rate 7.5, Glucose Level 409#H, Calcium Level 8.3L, Phosphorus Level 5.7H, Total Bilirubin 1.4H, Direct Bilirubin 1.0H, Aspartate Amino Transf (AST/SGOT) 137H, Alanine Aminotransferase (ALT/SGPT) 36, Alkaline Phosphatase 302H, C-Reactive Protein, Quantitative 31.8H, Pro-B-Type Natriuretic Peptide > 44947H, Total Protein 7.0, Albumin 2.3L, Globulin 4.7, Albumin/Globulin Ratio 0. 5L Height (Feet): 5 Height (Inches): 4.00 Weight (Pounds): 180 General Appearance: no apparent distress EENT: other - Intubated on ventilator Cardiovascular: tachycardia Respiratory/Chest: decreased breath sounds Abdomen: distended Francis Falk MD Aug 01, 2020 15:01
--- NOTE | 2020-08-01 15:59 | Cardiac Electrophysiology PN ---
Assessment/Plan Assessment/Plan 1. Accelerated HTN. Better on Lopressor 25 po q 6hr and p.r.n.clonidine. EF 40- 45% 2. Atrial fib with RVR with HR up to 150s. On Lopressor 25 q 6 hr 3. ESRD, on hemodialysis. 4. Hyponatremia, sodium 129. Fluid restriction per Dr. Falk. 5. Volume overload, BNP of more than 35,000 and EF 40-45%. On HD 6. Covid PNA and resp failure on the Vent with 80% Fio2 and PEEP 15 Covid positive 07/11 and 07/17 7. Tarry stool. S/P PRBC DW RN Subjective Subjective Confused in restraints. In Covid isolation. Intubated on 80% Fio2 and PEEP 10 on had HD Developed atrial fib with RVR 140s. Now HR 70s in atrial fib on Lopressor. S/P PRBC Objective Last 24 Hour Vital Signs Date Time Temp Pulse Resp B/P (MAP) Pulse Ox O2 Delivery O2 Flow Rate FiO2 08/01/20 13:00 82 17 129/52 (77) 100 08/01/20 12:14 98 128/50 08/01/20 12:00 97 22 128/50 (76) 100 08/01/20 12:00 Mechanical Ventilator 08/01/20 12:00 80 08/01/20 12:00 93 08/01/20 11:30 102 19 80 08/01/20 11:00 97 22 116/42 (66) 100 08/01/20 10:00 100.4 115 23 114/42 (66) 100 08/01/20 09:34 126 24 103/40 100 08/01/20 09:00 102.5 111 22 103/40 (61) 100 08/01/20 08:48 122 22 103/37 100 08/01/20 08:00 80 08/01/20 08:00 92 08/01/20 08:00 101.2 113 21 103/37 (59) 100 08/01/20 08:00 Mechanical Ventilator 08/01/20 07:30 113 23 80 08/01/20 07:00 110 17 95/34 (54) 100 08/01/20 07:00 118 27 92/47 (62) 100 08/01/20 06:30 110 17 95/32 (53) 100 08/01/20 06:07 80 08/01/20 06:00 120 27 95/47 (63) 100 08/01/20 06:00 112 79/32 08/01/20 06:00 115 22 86/32 (50) 100 08/01/20 06:00 112 17 79/32 (48) 100 08/01/20 05:00 137 27 82/47 (59) 100 08/01/20 04:00 Mechanical Ventilator 08/01/20 04:00 103.0 149 22 115/40 (65) 100 08/01/20 04:00 35 08/01/20 04:00 120 08/01/20 03:00 114 23 102/34 (56) 99 08/01/20 02:37 138 25 35 08/01/20 02:00 108 23 104/41 (62) 99 08/01/20 01:00 107 23 102/42 (62) 99 08/01/20 00:00 99.0 106 21 98/41 (60) 98 08/01/20 00:00 Mechanical Ventilator 08/01/20 00:00 45 08/01/20 00:00 109 07/31/20 23:31 114 109/43 07/31/20 23:00 101 22 109/43 (65) 96 07/31/20 22:38 108 21 35 07/31/20 22:00 101 20 93/38 (56) 97 07/31/20 21:00 107 21 116/41 (66) 97 07/31/20 20:00 Mechanical Ventilator 07/31/20 20:00 98.2 98 20 121/45 (70) 99 07/31/20 20:00 45 07/31/20 19:00 103 20 106/48 (67) 98 07/31/20 18:35 102 24 35 07/31/20 18:00 99 20 106/40 (62) 97 07/31/20 17:00 94 19 113/43 (66) 95 07/31/20 16:00 Mechanical Ventilator 07/31/20 16:00 98.9 91 21 90/60 (70) 100 07/31/20 16:00 89 07/31/20 16:00 45 Intake and Output 07/31/20 08/01/20 19:00 07:00 Intake Total 530 ml 420 ml Output Total 210 ml 4150 ml Balance 320 ml -3730 ml Free Water 60 ml IV Total 110 ml Tube Feeding 360 ml 360 ml Other 60 ml Output Urine Total 0 ml Stool Total 210 ml 2150 ml Hemodialysis UF 2000 ml Laboratory Tests Test 07/31/20 18:08 07/31/20 21:07 07/31/20 23:24 08/01/20 05:17 POC Whole Blood Glucose 129 MG/DL (74-106) H 223 MG/DL (74-106) H 303 MG/DL (74-106) H 360 MG/DL (74-106) H Test 08/01/20 12:09 White Blood Count 12.5 K/UL (4.8-10.8) H Red Blood Count 2.16 M/UL (4.20-5.40) L Hemoglobin 7.0 G/DL (12.0-16.0) L Hematocrit 22.0 % (37.0-47.0) L Mean Corpuscular Volume 102 FL (80-99) H Mean Corpuscular Hemoglobin 32.5 PG (27.0-31.0) H Mean Corpuscular Hemoglobin Concent 31.9 G/DL (32.0-36.0) L Red Cell Distribution Width 18.2 % (11.6-14.8) H Platelet Count 146 K/UL (150-450) L Mean Platelet Volume 8.7 FL (6.5-10.1) Neutrophils (%) (Auto) % (45.0-75.0) Lymphocytes (%) (Auto) % (20.0-45.0) Monocytes (%) (Auto) % (1.0-10.0) Eosinophils (%) (Auto) % (0.0-3.0) Basophils (%) (Auto) % (0.0-2.0) Differential Total Cells Counted 100 Neutrophils % (Manual) 97 % (45-75) H Lymphocytes % (Manual) 1 % (20-45) L Monocytes % (Manual) 2 % (1-10) Eosinophils % (Manual) 0 % (0-3) Basophils % (Manual) 0 % (0-2) Band Neutrophils 0 % (0-8) Platelet Estimate Decreased L Platelet Morphology Normal Anisocytosis 1+ Macrocytosis 1+ Sodium Level 139 MMOL/L (136-145) Potassium Level 4.2 MMOL/L (3.5-5.1) Chloride Level 97 MMOL/L (98-107) L Carbon Dioxide Level 28 MMOL/L (21-32) Anion Gap 14 mmol/L (5-15) Blood Urea Nitrogen 97 mg/dL (7-18) H Creatinine 5.6 MG/DL (0.55-1.30) H Estimat Glomerular Filtration Rate 7.5 mL/min (>60) Glucose Level 409 MG/DL (74-106) #H Calcium Level 8.3 MG/DL (8.5-10.1) L Phosphorus Level 5.7 MG/DL (2.5-4.9) H Total Bilirubin 1.4 MG/DL (0.2-1.0) H Direct Bilirubin 1.0 MG/DL (0.0-0.3) H Aspartate Amino Transf (AST/SGOT) 137 U/L (15-37) H Alanine Aminotransferase (ALT/SGPT) 36 U/L (12-78) Alkaline Phosphatase 302 U/L (46-116) H C-Reactive Protein, Quantitative 31.8 mg/dL (0.00-0.90) H Pro-B-Type Natriuretic Peptide > 92474 pg/mL (0-125) H Total Protein 7.0 G/DL (6.4-8.2) Albumin 2.3 G/DL (3.4-5.0) L Globulin 4.7 g/dL Albumin/Globulin Ratio 0.5 (1.0-2.7) L Objective HEAD AND NECK: Orally intubated LUNGS: Coarse rhonchi. CARDIOVASCULAR: Regular S1 and S2 with no gallop or murmur. ABDOMEN: Soft. EXTREMITIES: No pitting edema. Zev Gatica MD Aug 01, 2020 15:59
--- NOTE | 2020-08-01 16:05 | NUR ---
NURSE NOTES: Patient stable at this time. ETT suctioned.
--- NOTE | 2020-08-01 16:35 | Consultation ---
Consult Note Consult Note THIS IS AN AMENDED CONSULT NOTE FOR YUNG MAN ON 07/17/2020 Patient: YUNG MAN [facility] Rec #: [id number] Patient No.: [id number] Date of Admission: 07/16/20 Date and time entered: 07/17/20 DATE OF CONSULTATION: 07/17/2020 REASON FOR ADMISSION: Shortness of breath, elevated blood pressure. HISTORY OF PRESENT ILLNESS: This is a 70-year-old female with past medical history of hypertension, asthma, COPD, diabetes, GI problems, end-stage renal disease on dialysis, who was brought in by daughter for increased shortness of breath. In the ER, she was found to have elevated blood pressure along with increased respiratory effort and wheezing. She received MDI treatment due to her COVID-19 positive status. She also received clonidine and hydralazine due to severe hypertension. On evaluation today, the patient is on hemodialysis currently and she is also on soft restraints due to combativeness and noncompliance. She is currently saturating well on 3 L/min nasal cannula. Further history is limited. Chest x-ray taken in the ER is not available for review at this time. The patient tested positive for COVID-19. PAST MEDICAL HISTORY: Notable for hypertension, asthma, COPD, diabetes, GI problems, and ESRD on dialysis. SURGERIES: Unknown. ALLERGIES: No known allergies. TRAVEL HISTORY: Unknown. REVIEW OF SYSTEMS: Nonreliable. PHYSICAL EXAMINATION: VITAL SIGNS: Blood pressure 169/68, heart rate 102, respiratory rate 18, weight 81 kg, height 162 cm. HEENT: Head exam reveals that the head is normocephalic, atraumatic without deformity or unusual swelling. Pupils are round, reactive to light and accommodation normally. There is no nystagmus, lid lag, or exophthalmos. Nasal mucosa is pink. Front teeth are missing. CHEST AND LUNGS: Reveals clear, normal, symmetrical breath sounds with no adventitious sounds. No wheezing is noted. CARDIOVASCULAR: Reveals normal S1, S2. ABDOMEN: Soft with no tenderness or organomegaly. RECTAL: Deferred. MUSCULOSKELETAL: There is no tenderness to palpation. EXTREMITIES: There is no cyanosis, peripheral edema, or clubbing. There is no evidence of insufficiency or skin changes. NEUROLOGICAL: The patient appears confused. LABORATORY DATA: CBC shows WBC 2.0, hemoglobin 11.2, hematocrit 32.5, and platelet count 42,000. Chemistry shows sodium 129, potassium 6.8, chloride 91, BUN 91, creatinine 8.0, glucose 238, alkaline phosphatase 411, CRP 8.5, TSH 4.24. Hepatitis B antigen pending. ABG shows pH 7.353, pCO2 of 40.1, pO2 of 113.4, and HCO3 of 21.8. Coagulation panel shows D-dimer 1.53, PT 12.3, and aPTT 36. Assessment/Plan 1. COPD exacerbation. -Provide supplemental oxygen as needed -She may benefit from bronchodilator 2. Asthma exacerbation. - Breathing treatment p.r.n 3. Possible pneumonia secondary to COVID-19. - currently saturating on 3L NC - provide supplemental oxygen as needed -She may be a candidate for Decadron -Defer use of remdesivir to ID 4. Hypertensive emergency. - BP control per Cardiology 5. Leukocytopenia - monitor 6. Anemia. -Per primary MD 7. Hyponatremia. - per primary 8. Hyperkalemia. - monitor 9. Hypochloremia - monitor 10. Hyperglycemia. - monitor BGs - recommend sliding scale insulin 11. ESRD, on dialysis. The care for this patient was discussed with my supervising physician. Time spent for this case was approximately 31 minutes. Agustín Wadsworth Aug 01, 2020 16:35
--- NOTE | 2020-08-01 18:00 | NUR ---
NURSE NOTES: Patient medicated. Repositioned and cleaned. Bright red fluid noted from rectum when wiping.
--- NOTE | 2020-08-01 19:03 | General Progress Note ---
Subjective Allergies: Coded Allergies: No Known Allergies (Unverified , 05/12/17) Subjective above noted seen this am in ICU agitated, restrained d/w RN multiple bouts of diarrhea - up to 2000 cc yesterday Objective Last 24 Hour Vital Signs Date Time Temp Pulse Resp B/P (MAP) Pulse Ox O2 Delivery O2 Flow Rate FiO2 08/01/20 18:00 105 16 121/47 (71) 100 08/01/20 17:00 98 16 92/33 (52) 100 08/01/20 16:00 105 08/01/20 16:00 98.3 99 19 130/47 (74) 100 08/01/20 16:00 80 08/01/20 16:00 Mechanical Ventilator 08/01/20 15:30 111 19 80 08/01/20 15:00 92 15 140/55 (83) 100 08/01/20 14:00 85 17 93/50 (64) 100 08/01/20 13:00 82 17 129/52 (77) 100 08/01/20 12:14 98 128/50 08/01/20 12:00 97 22 128/50 (76) 100 08/01/20 12:00 Mechanical Ventilator 08/01/20 12:00 80 08/01/20 12:00 93 08/01/20 11:30 102 19 80 08/01/20 11:00 97 22 116/42 (66) 100 08/01/20 10:00 100.4 115 23 114/42 (66) 100 08/01/20 09:34 126 24 103/40 100 08/01/20 09:00 102.5 111 22 103/40 (61) 100 08/01/20 08:48 122 22 103/37 100 08/01/20 08:00 80 08/01/20 08:00 92 08/01/20 08:00 101.2 113 21 103/37 (59) 100 08/01/20 08:00 Mechanical Ventilator 08/01/20 07:30 113 23 80 08/01/20 07:00 110 17 95/34 (54) 100 08/01/20 07:00 118 27 92/47 (62) 100 08/01/20 06:30 110 17 95/32 (53) 100 08/01/20 06:07 80 08/01/20 06:00 120 27 95/47 (63) 100 08/01/20 06:00 112 79/32 08/01/20 06:00 115 22 86/32 (50) 100 08/01/20 06:00 112 17 79/32 (48) 100 08/01/20 05:00 137 27 82/47 (59) 100 08/01/20 04:00 Mechanical Ventilator 08/01/20 04:00 103.0 149 22 115/40 (65) 100 08/01/20 04:00 35 08/01/20 04:00 120 08/01/20 03:00 114 23 102/34 (56) 99 08/01/20 02:37 138 25 35 08/01/20 02:00 108 23 104/41 (62) 99 08/01/20 01:00 107 23 102/42 (62) 99 08/01/20 00:00 99.0 106 21 98/41 (60) 98 08/01/20 00:00 Mechanical Ventilator 08/01/20 00:00 45 08/01/20 00:00 109 07/31/20 23:31 114 109/43 07/31/20 23:00 101 22 109/43 (65) 96 07/31/20 22:38 108 21 35 07/31/20 22:00 101 20 93/38 (56) 97 07/31/20 21:00 107 21 116/41 (66) 97 07/31/20 20:00 Mechanical Ventilator 07/31/20 20:00 98.2 98 20 121/45 (70) 99 07/31/20 20:00 45 Intake and Output 07/31/20 08/01/20 18:59 06:59 Intake Total 530 ml 420 ml Output Total 210 ml 4150 ml Balance 320 ml -3730 ml Free Water 60 ml IV Total 110 ml Tube Feeding 360 ml 360 ml Other 60 ml Output Urine Total 0 ml Stool Total 210 ml 2150 ml Hemodialysis UF 2000 ml Laboratory Tests 07/31/20 21:07: POC Whole Blood Glucose 223H 07/31/20 23:24: POC Whole Blood Glucose 303H 08/01/20 05:17: POC Whole Blood Glucose 360H 08/01/20 12:09: White Blood Count 12.5H, Red Blood Count 2.16L, Hemoglobin 7.0L, Hematocrit 22.0L, Mean Corpuscular Volume 102H, Mean Corpuscular Hemoglobin 32.5H, Mean Corpuscular Hemoglobin Concent 31.9L, Red Cell Distribution Width 18.2H, Platelet Count 146L, Mean Platelet Volume 8.7, Neutrophils (%) (Auto) , Lymphocytes (%) (Auto) , Monocytes (%) (Auto) , Eosinophils (%) (Auto) , Basophils (%) (Auto) , Differential Total Cells Counted 100, Neutrophils % (Manual) 97H, Lymphocytes % (Manual) 1L, Monocytes % (Manual) 2, Eosinophils % (Manual) 0, Basophils % (Manual) 0, Band Neutrophils 0, Platelet Estimate DecreasedL, Platelet Morphology Normal, Anisocytosis 1+, Macrocytosis 1+, Sodium Level 139, Potassium Level 4.2, Chloride Level 97L, Carbon Dioxide Level 28, Anion Gap 14, Blood Urea Nitrogen 97H, Creatinine 5.6H, Estimat Glomerular Filtration Rate 7.5, Glucose Level 409#H, Calcium Level 8.3L, Phosphorus Level 5.7H, Total Bilirubin 1.4H, Direct Bilirubin 1.0H, Aspartate Amino Transf (AST/SGOT) 137H, Alanine Aminotransferase (ALT/SGPT) 36, Alkaline Phosphatase 302H, C-Reactive Protein, Quantitative 31.8H, Pro-B-Type Natriuretic Peptide > 79944V, Total Protein 7.0, Albumin 2.3L, Globulin 4.7, Albumin/Globulin Ratio 0.5L Height (Feet): 5 Height (Inches): 4.00 Weight (Pounds): 180 Objective Elderly woman on vent restrained moving spontaneously NCAT supple Coarse BS RR abd soft flat no edema Assessment/Plan Status: progressing, deteriorating Assessment/Plan: Assessment - Recurrent GI bleed - diarrhea - presumed related to COVID and/or TF - anemia - s/p multiple endoscopies and colonoscopies this year - resp failure - COPD - COVID PNA - abnormal LFT - presumed COVID related - DM - Poor Px Recommendations - PPI BID - Tube feeds --> change to VItal AF trial - follow labs - HD - PRN transfusion - No plans for endoscopy per discussion with family Ramakrishna Leonard MD Aug 01, 2020 19:02
--- NOTE | 2020-08-01 19:30 | NUR ---
NURSE NOTES: Received pt hypotensive , orally intubated on ac mode, SBP<100, passing out bright red blood, hemodialysis pending due to low bp. Will continue to monitor.
--- NOTE | 2020-08-01 19:31 | NUR ---
NURSE HAND-OFF REPORT: Latest Vital Signs: Temperature 98.3 , Pulse 99 , B/P 100 /41 , Respiratory Rate 13 , O2 SAT 100 , Nasal Cannula, O2 Flow Rate 3.0 . Vital Sign Comment: STABLE EKG Rhythm: Atrial Fibrillation Rhythm change?: N Notified?: Roxanne Gatica MD Response: Latest Elizabeth Fall Score: 50 Fall Risk: High Risk Safety Measures: Call light Within Reach, Bed Alarm Zone 1, Side Rails Side Rails x3, Bed position Low and Locked. Fall Precautions: Door Sign Report given to Debora LITTLE. Plan of care endorsed. Reported rectal bleeding and HR trending up which may correlate with fever. Latest temp 99.8F at 1800.
[2020-08-01] MEDS: Dyna-Hex 2% Top Sol 2oz TOPIC SCH (20:40)
[2020-08-01] MEDS: Acetaminophen 650mg/20.3ml NG PRN (20:44)
--- NOTE | 2020-08-01 20:45 | NUR ---
NURSE NOTES: called and spoke to DR Francis Catalan stated pts BP is currently 80/30 and pt is scheduled for dialysis. requested albumin. stated albumin to be given per dialysis order.
[2020-08-01 21:41] LABS: HEMATOCRIT 20.7 % (37.0-47.0); MEAN CORPUSCULAR VOLUME 102 FL (80-99); PLATELET COUNT 161 K/UL (150-450); RED BLOOD COUNT 2.02 M/UL (4.20-5.40); RED CELL DISTRIBUTION WIDTH 17.9 % (11.6-14.8); WHITE BLOOD COUNT 16.7 K/UL (4.8-10.8)
[2020-08-01 21:44] LABS: HEMOGLOBIN 6.8 G/DL (12.0-16.0)
--- NOTE | 2020-08-01 21:53 | NUR ---
NURSE NOTES:pt was passing bright red blood liquid stools. Stat hgb/ HCt was ordered , result 6.8/20.[address] Agustin ashby, awaiting for md to call back
[2020-08-01] MEDS: Epoetin Alfa-EPBX(ESRD on dialysis)10,000 unit/ml vial SUBQ SCH (21:55)
--- NOTE | 2020-08-01 22:09 | NUR ---
NURSE NOTES: called Dr Cervantes with pts bright red blood stools. hgb 6.8/20.7 awaiting for a call back
--- NOTE | 2020-08-01 22:15 | General Progress Note ---
Subjective ROS Limited/Unobtainable: Yes Allergies: Coded Allergies: No Known Allergies (Unverified , 05/12/17) Objective Last 24 Hour Vital Signs Date Time Temp Pulse Resp B/P (MAP) Pulse Ox O2 Delivery O2 Flow Rate FiO2 08/01/20 21:14 101.0 08/01/20 20:12 112 18 60 08/01/20 19:00 99 13 100/41 (60) 100 08/01/20 18:00 105 16 121/47 (71) 100 08/01/20 17:00 98 16 92/33 (52) 100 08/01/20 16:00 105 08/01/20 16:00 98.3 99 19 130/47 (74) 100 08/01/20 16:00 80 08/01/20 16:00 Mechanical Ventilator 08/01/20 15:30 111 19 80 08/01/20 15:00 92 15 140/55 (83) 100 08/01/20 14:00 85 17 93/50 (64) 100 08/01/20 13:00 82 17 129/52 (77) 100 08/01/20 12:14 98 128/50 08/01/20 12:00 97 22 128/50 (76) 100 08/01/20 12:00 Mechanical Ventilator 08/01/20 12:00 80 08/01/20 12:00 93 08/01/20 11:30 102 19 80 08/01/20 11:00 97 22 116/42 (66) 100 08/01/20 10:00 100.4 115 23 114/42 (66) 100 08/01/20 09:34 126 24 103/40 100 08/01/20 09:00 102.5 111 22 103/40 (61) 100 08/01/20 08:48 122 22 103/37 100 08/01/20 08:00 80 08/01/20 08:00 92 08/01/20 08:00 101.2 113 21 103/37 (59) 100 08/01/20 08:00 Mechanical Ventilator 08/01/20 07:30 113 23 80 08/01/20 07:00 110 17 95/34 (54) 100 08/01/20 07:00 118 27 92/47 (62) 100 08/01/20 06:30 110 17 95/32 (53) 100 08/01/20 06:07 80 08/01/20 06:00 120 27 95/47 (63) 100 08/01/20 06:00 112 79/32 08/01/20 06:00 115 22 86/32 (50) 100 08/01/20 06:00 112 17 79/32 (48) 100 08/01/20 05:00 137 27 82/47 (59) 100 08/01/20 04:00 Mechanical Ventilator 08/01/20 04:00 103.0 149 22 115/40 (65) 100 08/01/20 04:00 35 08/01/20 04:00 120 08/01/20 03:00 114 23 102/34 (56) 99 08/01/20 02:37 138 25 35 08/01/20 02:00 108 23 104/41 (62) 99 08/01/20 01:00 107 23 102/42 (62) 99 08/01/20 00:00 99.0 106 21 98/41 (60) 98 08/01/20 00:00 Mechanical Ventilator 08/01/20 00:00 45 08/01/20 00:00 109 07/31/20 23:31 114 109/43 07/31/20 23:00 101 22 109/43 (65) 96 07/31/20 22:38 108 21 35 Intake and Output 07/31/20 08/01/20 19:00 07:00 Intake Total 530 ml 420 ml Output Total 210 ml 4150 ml Balance 320 ml -3730 ml Free Water 60 ml IV Total 110 ml Tube Feeding 360 ml 360 ml Other 60 ml Output Urine Total 0 ml Stool Total 210 ml 2150 ml Hemodialysis UF 2000 ml Laboratory Tests 07/31/20 23:24: POC Whole Blood Glucose 303H 08/01/20 05:17: POC Whole Blood Glucose 360H 08/01/20 12:09: White Blood Count 12.5H, Red Blood Count 2.16L, Hemoglobin 7.0L, Hematocrit 22.0L, Mean Corpuscular Volume 102H, Mean Corpuscular Hemoglobin 32.5H, Mean Corpuscular Hemoglobin Concent 31.9L, Red Cell Distribution Width 18.2H, Platelet Count 146L, Mean Platelet Volume 8.7, Neutrophils (%) (Auto) , L ymphocytes (%) (Auto) , Monocytes (%) (Auto) , Eosinophils (%) (Auto) , Basophils (%) (Auto) , Differential Total Cells Counted 100, Neutrophils % (Manual) 97H, Lymphocytes % (Manual) 1L, Monocytes % (Manual) 2, Eosinophils % (Manual) 0, Basophils % (Manual) 0, Band Neutrophils 0, Platelet Estimate DecreasedL, Platelet Morphology Normal, Anisocytosis 1+, Macrocytosis 1+, Sodium Level 139, Potassium Level 4.2, Chloride Level 97L, Carbon Dioxide Level 28, Anion Gap 14, Blood Urea Nitrogen 97H, Creatinine 5.6H, Estimat Glomerular Filtration Rate 7.5, Glucose Level 409#H, Calcium Level 8.3L, Phosphorus Level 5.7H, Total Bilirubin 1.4H, Direct Bilirubin 1.0H, Aspartate Amino Transf (AST/SGOT) 137H, Alanine Aminotransferase (ALT/SGPT) 36, Alkaline Phosphatase 302H, C-Reactive Protein, Quantitative 31.8H, Pro-B-Type Natriuretic Peptide > 91795R, Total Protein 7.0, Albumin 2.3L, Globulin 4.7, Albumin/Globulin Ratio 0.5L 08/01/20 21:30: White Blood Count 16.7H, Red Blood Count 2.02L, Hemoglobin 6.8*L, Hematocrit 20.7L, Mean Corpuscular Volume 102H, Mean Corpuscular Hemoglobin 33.8H, Mean Corpuscular Hemoglobin Concent 33.0, Red Cell Distribution Width 17.9H, Platelet Count 161, Mean Platelet Volume 7.5, Neutrophils (%) (Auto) , Lymphocytes (%) (Auto) , Monocytes (%) (Auto) , Eosinophils (%) (Auto) , Basophils (%) (Auto) , Neutrophils % (Manual) [Pending], Lymphocytes % (Manual) [Pending], Platelet Estimate [Pending], Platelet Morphology [Pending] Height (Feet): 5 Height (Inches): 4.00 Weight (Pounds): 180 Assessment/Plan Problem List: (1) Pneumonia ICD Codes: J18.9 - Pneumonia, unspecified organism SNOMED: 008221835 (2) Hypertension ICD Codes: I10 - Essential (primary) hypertension SNOMED: 50769430 (3) Renal failure ICD Codes: N19 - Unspecified kidney failure SNOMED: 92265042 (4) Anemia in chronic kidney disease (CKD) ICD Codes: N18.9 - Chronic kidney disease, unspecified; D63.1 - Anemia in chronic kidney disease SNOMED: 861304914 (5) weakness (6) ESRD (end stage renal disease) ICD Codes: N18.6 - End stage renal disease SNOMED: 81339708 (7) Diabetic nephropathy with proteinuria ICD Codes: E11.21 - Type 2 diabetes mellitus with diabetic nephropathy SNOMED: 87151253, 770629831 Status: progressing, deteriorating Assessment/Plan: weak agiatated check h/h check lytes afebrile niddm htn esrd on hd resp failure niddm covid positive pna Makenna Daniel MD Aug 01, 2020 22:15
--- NOTE | 2020-08-01 22:25 | NUR ---
NURSE NOTES: Aware dr king with pts Bp 77/37, awaiting for a call back
[2020-08-02] VITALS (68 sets, daily range): BP systolic 77–170; BP diastolic 31–92
--- NOTE | 2020-08-02 03:00 | NUR ---
NURSE NOTES: Hemodialysis was started , SBP >100
[2020-08-02] MEDS: Piperacillin/Tazobactam 2.25 GM in D5W 55 ML IV SCH ×3 (03:20→18:00)
--- NOTE | 2020-08-02 04:00 | NUR ---
NURSE NOTES: Complete bed bath with bed changed was done,
--- NOTE | 2020-08-02 05:37 | NUR ---
NURSE NOTES: Dr Daniels called back with order of 1 unit PRBC and was ordered stat
[2020-08-02] MEDS: NovoLOG Insulin Flexpen SUBQ SCH ×4 (06:00→18:00)
[2020-08-02] MEDS: Docusate 100mg/10ml Liq NG SCH ×3 (06:00→21:33)
--- NOTE | 2020-08-02 06:30 | NUR ---
NURSE NOTES: Dialysis was finished , pt tolerated well, took out 500 ml, SBp>100, .
--- NOTE | 2020-08-02 06:59 | Hematology/Onc Progress Note ---
Assessment/Plan Assessment/Plan Assessment/Plan 1. Pancytopenia with hx anemia due to underlying chronic disease. Have reviewed prior workup, ferritin is >1000, covid19++++ --> Continue to closely monitor. --> Transfuse if hgb <7 --> ferritin is >1000 --> give epogen, has been started 3x a week --> as per renal --> monitor for gi bleed, gi consulted --> hgb trend 7.8-->9.3->8.9->>11-->9.5->8.9->8->8.2-->7.6-->6.8 --> plt 42-->50-->65-->104-->109-->176 --> ABX zosyn --> smear has been reviewed --> hep and hiv neg -> prbc 08/02 2. Leukopenia likely reactive process v infection v from meds --> hepatitis and hiv prior negative --> neutropenic precautions if ANC <1500 --> trending stable --> imaging reviewed and no hsm / cirrhosis noted --> wbc 2.7-->3.6->>>2->5-->8-->17->12-->11 --> increase in wbc due to steriods --> ANC goal >1500 3. End-stage renal disease, on hemodialysis three times a week. --> renal consulted --> continue hd 4. History of coronary artery disease. --> cards reviewed --> diuresis prn 5. History of anemia due to low B12, low iron --> b12 is currently within normal limits --> reobtain q6mo 6. Dizziness and unsteady gait 7. Covid 19 --> rx per id 8. DVt ppsx with SCDs Greatly appreciate consultation and Selvin RN Subjective HEENT: Denies: no symptoms, eye pain, blurred vision, tearing, double vision, ear pain, ear discharge, nose pain, nose congestion, throat pain, throat swelling, mouth pain, mouth swelling, other Cardiovascular: Denies: no symptoms, chest pain, edema, irregular heart rate, l ightheadedness, palpitations, syncope, other Respiratory: Denies: no symptoms, cough, shortness of breath, SOB with excertion, SOB at rest, sputum, wheezing, other Gastrointestinal/Abdominal: Denies: no symptoms, abdomen distended, abdominal pain, black stools, tarry stools, blood in stool, constipated, diarrhea, difficulty swallowing, nausea, poor appetite, poor fluid intake, rectal bleeding, vomiting, other Genitourinary: Denies: no symptoms, burning, discharge, frequency, flank pain, hematuria, incontinence, pain, urgency, other Neurologic/Psychiatric: Denies: no symptoms, anxiety, depressed, emotional problems, headache, numbness, paresthesia, pre-existing deficit, seizure, tingling, tremors, weakness, other Endocrine: Denies: no symptoms, excessive sweating, flushing, intolerance to cold, intolerance to heat, increased hunger, increased thirst, increased urine, unexplained weight gain, unexplained weight loss, other Hematologic/Lymphatic: Denies: no symptoms, anemia, easy bleeding, easy bruising, adenopathy, other Allergies: Coded Allergies: No Known Allergies (Unverified , 05/12/17) Subjective 07/19 meds noted, s/p hd, bp has improved, no bleeding, labs reviewed 07/20 labs are noted, no bleeding, meds reviewed, no major changes, hgb 9.5 07/22 remains in the icu, no bleeding, meds reviewed, on nc 07/23 labs noted, no bleeding, in icu, hgb 8.7, plt 90 07/24 is intubated, hgb 11, no bleeding, plt are better, meds reviewed 07/25 remains on zosyn, labs are noted, no bleeding, icu, meds ntoed, s/p hd yesterday with renal 07/26 seen at bedside with Justo Toro, doing HD today, is in the icu, have ordered epo 07/27 black tarry stools overnight, no bleeding, labs reviewed, plt better 07/29 restraints, is agitated, no bleeding, hgb 8.2, improved s/p transfusion 07/30 restraints, is for rectal tube insertion today for diarrhea 07/31 hd was done yesterday, labs reviewed, meds noted, for duplex today then scds 08/01 hd as needed, did have fever overnight is on zosyn 08/02 labs noted, pending cbc for the am, 1 unit prbc is ordered, dw bryant Alcaraz lower Objective Objective Current Medications Medications (Trade) Dose Ordered Sig/Toya Route PRN Reason Start Time Stop Time Status Last Admin Dose Admin Acetaminophen (Tylenol) 650 mg EVERY 6 HOURS PRN NG Mild Pain (Pain Scale 1-3) 07/29/20 09:05 08/28/20 09:04 08/01/20 20:44 Acetaminophen (Tylenol) 650 mg EVERY 6 HOURS PRN NG Temp >100.5 07/29/20 09:15 08/28/20 09:14 07/31/20 10:17 Albumin Human 100 ml @ 100 mls/hr ONCE IV 08/02/20 03:00 08/02/20 07:00 08/02/20 03:19 Chlorhexidine Gluconate (Yessi-Hex 2%) 1 applic DAILY@1999 TOPIC 07/21/20 20:00 10/19/20 19:59 08/01/20 20:40 Clonidine HCl (Catapres Tab) 0.1 mg Q4H PRN NG bp over 165 syst 07/21/20 12:00 10/14/20 22:44 Dextrose (Dextrose 50%) 25 ml Q30M PRN IV Hypoglycemia 07/22/20 08:00 10/20/20 07:59 Dextrose (Dextrose 50%) 50 ml Q30M PRN IV Hypoglycemia 07/22/20 08:00 10/20/20 07:59 Docusate Sodium (Colace) 100 mg EVERY 8 HOURS NG 07/29/20 22:00 08/20/20 12:59 Epoetin Panchito (Epoetin Panchito(ESRD on dialysis)) 10,000 unit THU-THU-THU SUBQ 07/30/20 21:00 10/25/20 20:59 08/01/20 21:55 Haloperidol Lactate (Haldol) 5 mg Q6H PRN IM Agitation 07/17/20 17:30 08/31/20 17:29 08/01/20 12:13 Insulin Aspart (NovoLOG) Q6HR SUBQ 07/22/20 08:15 10/20/20 11:29 08/01/20 17:26 Insulin Detemir (Levemir) 12 units Q12HR SUBQ 07/24/20 09:00 10/20/20 09:59 08/01/20 21:57 Loperamide HCl (Imodium) 2 mg Q6H PRN NG Diarrhea 07/29/20 15:45 08/28/20 15:44 Lorazepam (Ativan 2mg/ml 1ml) 1 mg Q4H PRN IV For Anxiety 07/30/20 06:37 08/06/20 06:36 08/01/20 08:48 Metoprolol Tartrate (Lopressor) 25 mg EVERY 6 HOURS NG 07/26/20 12:00 10/24/20 11:59 08/01/20 12:14 Norepinephrine Bitartrate 4 mg/ Dextrose 250 ml @ 0 mls/hr Q24H IV 08/01/20 22:45 08/04/20 22:44 08/01/20 22:55 Pantoprazole (Protonix) 40 mg EVERY 12 HOURS IVP 07/21/20 21:00 08/20/20 20:59 08/01/20 20:40 Piperacillin Sod/ Tazobactam Sod 2.25 gm/Dextrose 55 ml @ 110 mls/hr Q8HR@0200,1000,1800 IV 07/28/20 18:00 08/04/20 17:59 08/02/20 03:20 Quetiapine Fumarate (SEROqueL) 50 mg Q12HR ORAL 07/30/20 21:00 09/13/20 20:59 08/01/20 20:41 Vitamin D (Vitamin D) 5,000 unit DAILY ORAL 07/29/20 09:00 08/28/20 08:59 08/01/20 08:44 Last 24 Hour Vital Signs Date Time Temp Pulse Resp B/P (MAP) Pulse Ox O2 Delivery O2 Flow Rate FiO2 08/02/20 06:00 113 98/36 08/02/20 05:31 Mechanical Ventilator 100 08/02/20 05:00 110/52 08/02/20 04:45 98 19 128/54 (78) 100 08/02/20 04:30 96 17 135/53 (80) 100 08/02/20 04:15 93 16 119/51 (73) 100 08/02/20 04:00 99.0 92 19 124/43 (70) 100 08/02/20 04:00 98 08/02/20 04:00 Mechanical Ventilator 08/02/20 04:00 119/51 08/02/20 04:00 117/47 08/02/20 04:00 80 08/02/20 03:55 Mechanical Ventilator 100 08/02/20 03:45 94 17 123/47 (72) 100 08/02/20 03:30 96 19 111/44 (66) 100 08/02/20 03:15 97 16 117/47 (70) 100 08/02/20 03:00 100 18 98/47 (64) 100 08/02/20 03:00 117/47 08/02/20 02:45 96 15 100/48 (65) 100 08/02/20 02:30 100 16 116/47 (70) 100 08/02/20 02:15 95 15 126/52 (76) 08/02/20 02:00 94 15 147/53 (84) 100 08/02/20 02:00 126/52 08/02/20 01:45 95 16 143/55 (84) 100 08/02/20 01:45 99 19 60 08/02/20 01:30 97 20 140/46 (77) 100 08/02/20 01:15 98 16 142/48 (79) 100 08/02/20 01:00 98 17 147/54 (85) 100 08/02/20 01:00 142/51 08/02/20 00:45 100 16 138/52 (80) 100 08/02/20 00:30 100 17 128/54 (78) 100 08/02/20 00:15 98 18 147/52 (83) 100 08/02/20 00:00 Mechanical Ventilator 08/02/20 00:00 98 08/02/20 00:00 81 92/56 08/02/20 00:00 80 08/02/20 00:00 100.0 99 20 140/50 (80) 100 08/01/20 23:45 96 18 155/47 (83) 100 08/01/20 23:35 97 20 151/50 (83) 100 08/01/20 23:30 98 18 102/50 (67) 100 08/01/20 23:00 96 20 109/43 (65) 100 08/01/20 22:55 92/37 08/01/20 22:30 94 21 90/40 (57) 100 08/01/20 22:00 101.0 99 17 77/37 (50) 100 08/01/20 21:30 103 18 94/40 (58) 100 08/01/20 21:14 101.0 08/01/20 21:00 110 19 89/37 (54) 100 08/01/20 20:30 107 18 92/36 (54) 100 08/01/20 20:12 112 18 60 08/01/20 20:00 Mechanical Ventilator 08/01/20 20:00 109 08/01/20 20:00 102.4 107 19 84/41 (55) 100 08/01/20 20:00 80 08/01/20 19:30 105 17 101/56 (71) 100 08/01/20 19:00 99 13 100/41 (60) 100 08/01/20 18:00 105 16 121/47 (71) 100 08/01/20 17:00 98 16 92/33 (52) 100 08/01/20 16:00 105 08/01/20 16:00 98.3 99 19 130/47 (74) 100 08/01/20 16:00 80 08/01/20 16:00 Mechanical Ventilator 08/01/20 15:30 111 19 80 08/01/20 15:00 92 15 140/55 (83) 100 08/01/20 14:00 85 17 93/50 (64) 100 08/01/20 13:00 82 17 129/52 (77) 100 08/01/20 12:14 98 128/50 08/01/20 12:00 97 22 128/50 (76) 100 08/01/20 12:00 Mechanical Ventilator 08/01/20 12:00 80 08/01/20 12:00 93 08/01/20 11:30 102 19 80 08/01/20 11:00 97 22 116/42 (66) 100 08/01/20 10:00 100.4 115 23 114/42 (66) 100 08/01/20 09:34 126 24 103/40 100 08/01/20 09:00 102.5 111 22 103/40 (61) 100 08/01/20 08:48 122 22 103/37 100 08/01/20 08:00 80 08/01/20 08:00 92 08/01/20 08:00 101.2 113 21 103/37 (59) 100 08/01/20 08:00 Mechanical Ventilator 08/01/20 07:30 113 23 80 08/01/20 07:00 110 17 95/34 (54) 100 08/01/20 07:00 118 27 92/47 (62) 100 08/01/20 06:30 110 17 95/32 (53) 100 08/01/20 06:07 80 08/01/20 06:00 120 27 95/47 (63) 100 08/01/20 06:00 112 79/32 08/01/20 06:00 115 22 86/32 (50) 100 08/01/20 06:00 112 17 79/32 (48) 100 08/01/20 05:00 137 27 82/47 (59) 100 08/01/20 04:00 Mechanical Ventilator 08/01/20 04:00 103.0 149 22 115/40 (65) 100 08/01/20 04:00 35 08/01/20 04:00 120 08/01/20 03:00 114 23 102/34 (56) 99 08/01/20 02:37 138 25 35 08/01/20 02:00 108 23 104/41 (62) 99 08/01/20 01:00 107 23 102/42 (62) 99 08/01/20 00:00 99.0 106 21 98/41 (60) 98 08/01/20 00:00 Mechanical Ventilator 08/01/20 00:00 45 08/01/20 00:00 109 07/31/20 23:31 114 109/43 07/31/20 23:00 101 22 109/43 (65) 96 07/31/20 22:38 108 21 35 07/31/20 22:00 101 20 93/38 (56) 97 07/31/20 21:00 107 21 116/41 (66) 97 07/31/20 20:00 Mechanical Ventilator 07/31/20 20:00 98.2 98 20 121/45 (70) 99 07/31/20 20:00 45 07/31/20 19:00 103 20 106/48 (67) 98 07/31/20 18:35 102 24 35 07/31/20 18:00 99 20 106/40 (62) 97 07/31/20 17:00 94 19 113/43 (66) 95 07/31/20 16:00 Mechanical Ventilator 07/31/20 16:00 98.9 91 21 90/60 (70) 100 07/31/20 16:00 89 07/31/20 16:00 45 07/31/20 15:00 97 18 88/42 (57) 100 07/31/20 14:35 102 22 101/40 99 07/31/20 14:30 90 18 35 07/31/20 14:00 111 22 101/44 (63) 100 07/31/20 13:07 122 105/44 07/31/20 13:00 117 20 96/37 (56) 100 07/31/20 12:15 115 22 105/52 (69) 99 07/31/20 12:00 Mechanical Ventilator 07/31/20 12:00 122 07/31/20 12:00 45 07/31/20 12:00 99.0 116 22 103/39 (60) 100 07/31/20 11:18 110 17 45 07/31/20 11:00 108 20 101/66 (78) 98 07/31/20 10:47 99.0 07/31/20 10:00 109 19 104/37 (59) 99 07/31/20 09:30 105 19 109/43 (65) 99 07/31/20 09:00 108 24 118/45 (69) 98 07/31/20 08:30 104 20 116/47 (70) 98 07/31/20 08:00 103 07/31/20 08:00 45 07/31/20 08:00 Mechanical Ventilator 07/31/20 08:00 102.3 105 22 120/45 (70) 98 07/31/20 07:00 96 20 124/49 (74) 100 Intake and Output 08/01/20 08/02/20 19:00 07:00 Intake Total 415 ml 343.75 ml Output Total 350 ml 400 ml Balance 65 ml -56.25 ml IV Total 55 ml 193.75 ml Tube Feeding 360 ml 150 ml Stool Total 350 ml 400 ml Labs Test 07/30/20 07:54 07/30/20 09:11 07/30/20 12:29 07/30/20 17:03 Arterial Blood pH 7.371 (7.350-7.450) Arterial Blood Partial Pressure CO2 52.0 mmHg (35.0-45.0) Arterial Blood Partial Pressure O2 149.2 mmHg (75.0-100.0) Arterial Blood HCO3 29.5 mmol/L (22.0-26.0) Arterial Blood Oxygen Saturation 98.1 % (95-100) Arterial Blood Base Excess 3.6 (-2-2) Faheem Test Positive POC Whole Blood Glucose 84 MG/DL (74-106) 81 MG/DL (74-106) 120 MG/DL (74-106) Test 07/30/20 20:29 07/30/20 23:37 07/31/20 04:00 07/31/20 05:32 POC Whole Blood Glucose 116 MG/DL (74-106) 131 MG/DL (74-106) White Blood Count 11.5 K/UL (4.8-10.8) Red Blood Count 1.96 M/UL (4.20-5.40) Hemoglobin 7.6 G/DL (12.0-16.0) Hematocrit 19.9 % (37.0-47.0) Mean Corpuscular Volume 102 FL (80-99) Mean Corpuscular Hemoglobin 38.6 PG (27.0-31.0) Mean Corpuscular Hemoglobin Concent 38.0 G/DL (32.0-36.0) Red Cell Distribution Width 16.9 % (11.6-14.8) Platelet Count 173 K/UL (150-450) Mean Platelet Volume 8.2 FL (6.5-10.1) Neutrophils (%) (Auto) % (45.0-75.0) Lymphocytes (%) (Auto) % (20.0-45.0) Monocytes (%) (Auto) % (1.0-10.0) Eosinophils (%) (Auto) % (0.0-3.0) Basophils (%) (Auto) % (0.0-2.0) Differential Total Cells Counted 100 Neutrophils % (Manual) 94 % (45-75) Lymphocytes % (Manual) 2 % (20-45) Monocytes % (Manual) 3 % (1-10) Eosinophils % (Manual) 1 % (0-3) Basophils % (Manual) 0 % (0-2) Band Neutrophils 0 % (0-8) Platelet Estimate Adequate Platelet Morphology Normal Polychromasia 1+ Hypochromasia 1+ Anisocytosis 1+ Sodium Level 142 MMOL/L (136-145) Potassium Level 3.4 MMOL/L (3.5-5.1) Chloride Level 101 MMOL/L (98-107) Carbon Dioxide Level 36 MMOL/L (21-32) Anion Gap 5 mmol/L (5-15) Blood Urea Nitrogen 50 mg/dL (7-18) Creatinine 3.8 MG/DL (0.55-1.30) Estimat Glomerular Filtration Rate 11.7 mL/min (>60) Glucose Level 140 MG/DL (74-106) Calcium Level 8.4 MG/DL (8.5-10.1) Phosphorus Level 3.1 MG/DL (2.5-4.9) Magnesium Level 1.9 MG/DL (1.8-2.4) Total Bilirubin 1.2 MG/DL (0.2-1.0) Direct Bilirubin 0.8 MG/DL (0.0-0.3) Aspartate Amino Transf (AST/SGOT) 46 U/L (15-37) Alanine Aminotransferase (ALT/SGPT) 21 U/L (12-78) Alkaline Phosphatase 305 U/L (46-116) C-Reactive Protein, Quantitative 30.4 mg/dL (0.00-0.90) Total Protein 6.6 G/DL (6.4-8.2) Albumin 2.2 G/DL (3.4-5.0) Globulin 4.4 g/dL Albumin/Globulin Ratio 0.5 (1.0-2.7) Test 07/31/20 12:30 07/31/20 13:02 07/31/20 18:08 07/31/20 21:07 POC Whole Blood Glucose 97 MG/DL (74-106) 97 MG/DL (74-106) 129 MG/DL (74-106) 223 MG/DL (74-106) Test 07/31/20 23:24 08/01/20 05:17 08/01/20 12:09 08/01/20 21:30 POC Whole Blood Glucose 303 MG/DL (74-106) 360 MG/DL (74-106) White Blood Count 12.5 K/UL (4.8-10.8) 16.7 K/UL (4.8-10.8) Red Blood Count 2.16 M/UL (4.20-5.40) 2.02 M/UL (4.20-5.40) Hemoglobin 7.0 G/DL (12.0-16.0) 6.8 G/DL (12.0-16.0) Hematocrit 22.0 % (37.0-47.0) 20.7 % (37.0-47.0) Mean Corpuscular Volume 102 FL (80-99) 102 FL (80-99) Mean Corpuscular Hemoglobin 32.5 PG (27.0-31.0) 33.8 PG (27.0-31.0) Mean Corpuscular Hemoglobin Concent 31.9 G/DL (32.0-36.0) 33.0 G/DL (32.0-36.0) Red Cell Distribution Width 18.2 % (11.6-14.8) 17.9 % (11.6-14.8) Platelet Count 146 K/UL (150-450) 161 K/UL (150-450) Mean Platelet Volume 8.7 FL (6.5-10.1) 7.5 FL (6.5-10.1) Neutrophils (%) (Auto) % (45.0-75.0) % (45.0-75.0) Lymphocytes (%) (Auto) % (20.0-45.0) % (20.0-45.0) Monocytes (%) (Auto) % (1.0-10.0) % (1.0-10.0) Eosinophils (%) (Auto) % (0.0-3.0) % (0.0-3.0) Basophils (%) (Auto) % (0.0-2.0) % (0.0-2.0) Differential Total Cells Counted 100 100 Neutrophils % (Manual) 97 % (45-75) 93 % (45-75) Lymphocytes % (Manual) 1 % (20-45) 1 % (20-45) Monocytes % (Manual) 2 % (1-10) 0 % (1-10) Eosinophils % (Manual) 0 % (0-3) 0 % (0-3) Basophils % (Manual) 0 % (0-2) 1 % (0-2) Band Neutrophils 0 % (0-8) 5 % (0-8) Platelet Estimate Decreased Adequate Platelet Morphology Normal Normal Anisocytosis 1+ 1+ Macrocytosis 1+ 2+ Sodium Level 139 MMOL/L (136-145) Potassium Level 4.2 MMOL/L (3.5-5.1) Chloride Level 97 MMOL/L (98-107) Carbon Dioxide Level 28 MMOL/L (21-32) Anion Gap 14 mmol/L (5-15) Blood Urea Nitrogen 97 mg/dL (7-18) Creatinine 5.6 MG/DL (0.55-1.30) Estimat Glomerular Filtration Rate 7.5 mL/min (>60) Glucose Level 409 MG/DL (74-106) Calcium Level 8.3 MG/DL (8.5-10.1) Phosphorus Level 5.7 MG/DL (2.5-4.9) Total Bilirubin 1.4 MG/DL (0.2-1.0) Direct Bilirubin 1.0 MG/DL (0.0-0.3) Aspartate Amino Transf (AST/SGOT) 137 U/L (15-37) Alanine Aminotransferase (ALT/SGPT) 36 U/L (12-78) Alkaline Phosphatase 302 U/L (46-116) C-Reactive Protein, Quantitative 31.8 mg/dL (0.00-0.90) Pro-B-Type Natriuretic Peptide > 03862 pg/mL (0-125) Total Protein 7.0 G/DL (6.4-8.2) Albumin 2.3 G/DL (3.4-5.0) Globulin 4.7 g/dL Albumin/Globulin Ratio 0.5 (1.0-2.7) Polychromasia 1+ Test 08/02/20 00:32 Height (Feet): 5 Height (Inches): 4.00 Weight (Pounds): 180 Objective Physical Exam General Appearance: alert, obese, Chronically Ill Neck: full range of motion Respiratory: wheezing Cardiovascular: edema Gastrointestinal: normal inspection, soft 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
--- NOTE | 2020-08-02 07:00 | NUR ---
NURSE NOTES: Levophed off SBP >100
--- NOTE | 2020-08-02 07:15 | NUR ---
NURSE NOTES: Patient received from Debora LITTLE. Patient flat affect. Breath sounds clear cardiac sounds benign. Afib on monitor. RR even and unlabored on ventilator. AC 16 500 60% P10. OGT in place with feeding infusing. Rectal tube in place with stool present. L AV shut present with thrill and bruit. R Femoral TLC in place with all ports flushed and patent. Levophed titrated up due to hypotension. Blood bank clled regarding transfusion order. Blood not ready at this time. Side rails upx2,call light within reach, bed low and locked.
--- NOTE | 2020-08-02 07:38 | NUR ---
NURSE HAND-OFF REPORT: Latest Vital Signs: Temperature 99.0 , Pulse 107 , B/P 110 /39 , Respiratory Rate 19 , O2 SAT 100 , Nasal Cannula, O2 Flow Rate 3.0 . Vital Sign Comment: EKG Rhythm: Atrial Fibrillation Rhythm change?: N Notified?: Roxanne Gatica MD Response: Latest Elizabeth Fall Score: 50 Fall Risk: High Risk Safety Measures: Call light Within Reach, Bed Alarm Zone 1, Side Rails Side Rails x3, Bed position Low and Locked. Fall Precautions: Door Sign Report given to Laurie Mcclellan.
[2020-08-02] MEDS: Vitamin D 1000 units Tab ORAL SCH (08:16)
[2020-08-02] MEDS: Pantoprazole Inj IVP SCH ×2 (08:17→21:31)
[2020-08-02] MEDS: Acetaminophen 650mg/20.3ml NG PRN (08:17)
[2020-08-02] MEDS ORDERED: NS 275ml ONE ×2 (08:57→20:48)
[2020-08-02] MEDS ORDERED: D5W 275ml ONE (08:57)
[2020-08-02] MEDS ORDERED: Sterile Water Irrig 1000ml IRRIG ONE (08:57)
[2020-08-02] MEDS ORDERED: Tubing IV Secondary IV ONE ×2 (08:57→20:48)
[2020-08-02] MEDS: Levemir Flexpen SUBQ SCH ×2 (09:00→21:00)
--- NOTE | 2020-08-02 10:33 | Nephrology Progress Note ---
Assessment/Plan Problem List: (1) Hypertensive kidney disease (2) ESRD (end stage renal disease) (3) Hyperkalemia (4) Suspected 2019 novel coronavirus infection (5) Acute respiratory failure Assessment 70-year-old female with end-stage renal disease Presented with volume overload and hyperkalemia Suspected COVID-19 virus infection Hypertensive emergency Diabetes mellitus CHF Plan August 02: Discussed with RN. Patient due for transfusion due to rectal bleed. No dialysis scheduled today. Optimize cardiac and pulmonary status. Dialysis as needed. August 01: Discussed with RN. Patient had dry ultrafiltration yesterday. Patient will have dialysis and ultrafiltration today. Labs reviewed. Continue per consultants. July 31: Discussed with RN. Discussed with senior report developer. Chest x-ray still looks wet. Despite of having been dialyzed yesterday we arrange for dialysis and ultrafiltration today and probably tomorrow. Labs reviewed. Per orders. July 30: Patient on dialysis now. Tolerating well. Labs and medications reviewed. Continue per consultants. Hemoglobin mid sevens. On 10,000 units of Epogen. Transfusion if needed. July 29: Dialyzed yesterday. Due for dialysis tomorrow. Labs reviewed. Iron panel ordered. Epogen dose increased. Continue per consultants. Vitamin D level pending July 28: Patient is about to get started on dialysis. Labs reviewed. Blood pressure 90 to 100 systolic. Continue per consultants. July 27: Patient dialyzed July 26. Labs reviewed. Status quo. Dialysis again in a.m. July 26: Patient was dialyzed this morning. Labs reviewed. Remains intubated on ventilator. Full code. Tachycardic. Continue per consultants. P er orders. July 25: Patient was dialyzed yesterday. 2 L ultrafiltrate it. Discussed with funeral driver today. Attempts at weaning is being tried. Patient will be dialyzed again tomorrow. In view of ejection fraction of 40 to 45% and low blood pressure will adjust the blood pressure medication dosages and give 0.25 mg digoxin IV once. Continue to monitor renal parameters. July 24: Due for dialysis today. Labs reviewed. Low phosphorus replaced. Continue pulmonary support and ID management. Medication list reviewed. BP medication adjusted. July 23: Dialyzed yesterday. Labs reviewed. ABG noted. Patient hypoxic. Vent setting adjusted by funeral driver. Continue current care. Dialysis tomorrow. July 22: Patient on ventilator requiring positive end expiratory pressure. Labs reviewed. Blood sugar elevated. Levemir insulin ordered. Dialysis today. Continue per consultants. July 21: Patient now in ICU. Intubated on ventilator. Was dialyzed. Blood pressure well maintained. Has NG tube. Will start medication through NG tube and start feeding. Continue per consultants. Hemodialysis as needed. July 20: Patient seen and examined. Discussed with RN. Remains encephalopathic. Poor ABG results. Patient at high risk at this stage. We will transfer patients to ICU for possible airway support. Patient due for dialysis today. Hyperkalemia probably secondary to acidosis. Will arrange for NG tube insertion and give medication through NG tube. July 19: Mental status appears slightly improved. Was dialyzed 2 days in a row. Blood pressure medication adjusted. Next dialysis tomorrow. Continue per consultants. July 18: Patient encephalopathic, was dialyzed yesterday and had 3 L removed. Will order dialysis again today. Continue per ID. Blood pressure medication adjusted. July 17: Stat hemodialysis ordered. Kayexalate for high potassium. Pulmonary support with oxygen or BiPAP as needed Blood pressure support with proper parameters Per orders Subjective ROS Limited/Unobtainable: Yes Objective Objective Last 24 Hour Vital Signs Date Time Temp Pulse Resp B/P (MAP) Pulse Ox O2 Delivery O2 Flow Rate FiO2 08/02/20 10:00 104 16 143/46 (78) 100 08/02/20 09:30 105 31 89/66 (74) 96 08/02/20 09:00 107 31 90/67 (75) 95 08/02/20 08:30 118 33 88/56 (67) 94 08/02/20 08:00 124 32 92/65 (74) 100 08/02/20 08:00 60 08/02/20 08:00 Mechanical Ventilator 08/02/20 08:00 103 08/02/20 07:45 140 21 60 08/02/20 07:15 107 19 110/39 (62) 100 08/02/20 07:12 107 21 89/37 (54) 99 08/02/20 07:00 96/50 08/02/20 07:00 100 18 82/38 (53) 100 08/02/20 06:45 104 20 95/37 (56) 100 08/02/20 06:30 107 19 114/43 (66) 100 08/02/20 06:15 112 19 138/45 (76) 98 08/02/20 06:00 136/80 08/02/20 06:00 113 98/36 08/02/20 06:00 108 16 141/46 (77) 99 08/02/20 05:45 104 19 137/44 (75) 100 08/02/20 05:31 Mechanical Ventilator 100 08/02/20 05:30 100 17 137/50 (79) 100 08/02/20 05:15 99 17 133/64 (87) 100 08/02/20 05:00 99 17 120/47 (71) 100 08/02/20 05:00 110/52 08/02/20 04:45 98 19 128/54 (78) 100 08/02/20 04:30 96 17 135/53 (80) 100 08/02/20 04:15 93 16 119/51 (73) 100 08/02/20 04:00 99.0 92 19 124/43 (70) 100 08/02/20 04:00 98 08/02/20 04:00 Mechanical Ventilator 08/02/20 04:00 117/47 08/02/20 04:00 80 08/02/20 03:55 Mechanical Ventilator 100 08/02/20 03:45 94 17 123/47 (72) 100 08/02/20 03:30 96 19 111/44 (66) 100 08/02/20 03:15 97 16 117/47 (70) 100 08/02/20 03:00 100 18 98/47 (64) 100 08/02/20 03:00 117/47 08/02/20 02:45 96 15 100/48 (65) 100 08/02/20 02:30 100 16 116/47 (70) 100 08/02/20 02:15 95 15 126/52 (76) 08/02/20 02:00 94 15 147/53 (84) 100 08/02/20 02:00 126/52 08/02/20 01:45 95 16 143/55 (84) 100 08/02/20 01:45 99 19 60 08/02/20 01:30 97 20 140/46 (77) 100 08/02/20 01:15 98 16 142/48 (79) 100 08/02/20 01:00 98 17 147/54 (85) 100 08/02/20 01:00 142/51 08/02/20 00:45 100 16 138/52 (80) 100 08/02/20 00:30 100 17 128/54 (78) 100 08/02/20 00:15 98 18 147/52 (83) 100 08/02/20 00:00 Mechanical Ventilator 08/02/20 00:00 98 08/02/20 00:00 81 92/56 08/02/20 00:00 80 08/02/20 00:00 100.0 99 20 140/50 (80) 100 08/01/20 23:45 96 18 155/47 (83) 100 08/01/20 23:35 97 20 151/50 (83) 100 08/01/20 23:30 98 18 102/50 (67) 100 08/01/20 23:00 96 20 109/43 (65) 100 08/01/20 22:55 92/37 08/01/20 22:30 94 21 90/40 (57) 100 08/01/20 22:00 101.0 99 17 77/37 (50) 100 08/01/20 21:30 103 18 94/40 (58) 100 08/01/20 21:14 101.0 08/01/20 21:00 110 19 89/37 (54) 100 08/01/20 20:30 107 18 92/36 (54) 100 08/01/20 20:12 112 18 60 08/01/20 20:00 Mechanical Ventilator 08/01/20 20:00 109 08/01/20 20:00 102.4 107 19 84/41 (55) 100 08/01/20 20:00 80 08/01/20 19:30 105 17 101/56 (71) 100 08/01/20 19:00 99 13 100/41 (60) 100 08/01/20 18:00 105 16 121/47 (71) 100 08/01/20 17:00 98 16 92/33 (52) 100 08/01/20 16:00 105 08/01/20 16:00 98.3 99 19 130/47 (74) 100 08/01/20 16:00 80 08/01/20 16:00 Mechanical Ventilator 08/01/20 15:30 111 19 80 08/01/20 15:00 92 15 140/55 (83) 100 08/01/20 14:00 85 17 93/50 (64) 100 08/01/20 13:00 82 17 129/52 (77) 100 08/01/20 12:14 98 128/50 08/01/20 12:00 97 22 128/50 (76) 100 08/01/20 12:00 Mechanical Ventilator 08/01/20 12:00 80 08/01/20 12:00 93 08/01/20 11:30 102 19 80 08/01/20 11:00 97 22 116/42 (66) 100 Intake and Output 08/01/20 08/02/20 19:00 07:00 Intake Total 415 ml 421.25 ml Output Total 350 ml 600 ml Balance 65 ml -178.75 ml IV Total 55 ml 271.25 ml Tube Feeding 360 ml 150 ml Stool Total 350 ml 600 ml Laboratory Tests 08/01/20 12:09: White Blood Count 12.5H, Red Blood Count 2.16L, Hemoglobin 7.0L, Hematocrit 22.0 L, Mean Corpuscular Volume 102H, Mean Corpuscular Hemoglobin 32.5H, Mean Corpuscular Hemoglobin Concent 31.9L, Red Cell Distribution Width 18.2H, Plate let Count 146L, Mean Platelet Volume 8.7, Neutrophils (%) (Auto) , Lymphocytes (%) (Auto) , Monocytes (%) (Auto) , Eosinophils (%) (Auto) , Basophils (%) (Auto) , Differential Total Cells Counted 100, Neutrophils % (Manual) 97H, Lymphocytes % (Manual) 1L, Monocytes % (Manual) 2, Eosinophils % (Manual) 0, Basophils % (Manual) 0, Band Neutrophils 0, Platelet Estimate DecreasedL, Platelet Morphology Normal, Anisocytosis 1+, Macrocytosis 1+, Sodium Level 139, Potassium Level 4.2, Chloride Level 97L, Carbon Dioxide Level 28, Anion Gap 14, Blood Urea Nitrogen 97H, Creatinine 5.6H, Estimat Glomerular Filtration Rate 7.5, Glucose Level 409#H, Calcium Level 8.3L, Phosphorus Level 5.7H, Total Bilirubin 1.4H, Direct Bilirubin 1.0H, Aspartate Amino Transf (AST/SGOT) 137H, Alanine Aminotransferase (ALT/SGPT) 36, Alkaline Phosphatase 302H, C-Reactive Protein, Quantitative 31.8H, Pro-B-Type Natriuretic Peptide > 38745Q, Total Protein 7.0, Albumin 2.3L, Globulin 4.7, Albumin/Globulin Ratio 0.5L 08/01/20 21:30: White Blood Count 16.7H, Red Blood Count 2.02L, Hemoglobin 6.8*L, Hematocrit 20.7L, Mean Corpuscular Volume 102H, Mean Corpuscular Hemoglobin 33.8H, Mean Corpuscular Hemoglobin Concent 33.0, Red Cell Distribution Width 17.9H, Platelet Count 161, Mean Platelet Volume 7.5, Neutrophils (%) (Auto) , Lymphocytes (%) (Auto) , Monocytes (%) (Auto) , Eosinophils (%) (Auto) , Basophils (%) (Auto) , Differential Total Cells Counted 100, Neutrophils % (Manual) 93H, Lymphocytes % (Manual) 1L, Monocytes % (Manual) 0L, Eosinophils % (Manual) 0, Basophils % (Manual) 1, Band Neutrophils 5, Platelet Estimate Adequate, Platelet Morphology Normal, Anisocytosis 1+, Macrocytosis 2+, Polychromasia 1+ 08/02/20 00:32: POC Whole Blood Glucose [Pending] 08/02/20 08:30: POC Whole Blood Glucose 147H Height (Feet): 5 Height (Inches): 4.00 Weight (Pounds): 180 General Appearance: no apparent distress, other EENT: other - Intubated on ventilator Cardiovascular: tachycardia Respiratory/Chest: decreased breath sounds Abdomen: distended Francis Falk MD Aug 02, 2020 10:33
[2020-08-02] MEDS: Norepinephrine Premix 4mg/NS 250mL IV SCH (10:38)
--- NOTE | 2020-08-02 10:40 | NUR ---
NURSE NOTES: Patient has fever. Tylenol given with Zosyn and new Levophed.
[2020-08-02 11:37] LABS: ALANINE AMINOTRANSFERASE 27 U/L (12-78); ALBUMIN 2.3 G/DL (3.4-5.0); ALBUMIN/GLOBULIN RATIO 0.5 (1.0-2.7); ALKALINE PHOSPHATASE 219 U/L (46-116); ANION GAP 8 mmol/L (5-15); ASPARTATE AMINO TRANSFERASE 44 U/L (15-37); BILIRUBIN,TOTAL 2.1 MG/DL (0.2-1.0); BLOOD UREA NITROGEN 44 mg/dL (7-18); CALCIUM 8.6 MG/DL (8.5-10.1); CARBON DIOXIDE 34 MMOL/L (21-32); CHLORIDE 98 MMOL/L (98-107); CREATININE 2.9 MG/DL (0.55-1.30); PHOSPHORUS 3.9 MG/DL (2.5-4.9); POTASSIUM 3.4 MMOL/L (3.5-5.1); SODIUM 140 MMOL/L (136-145)
[2020-08-02 11:38] LABS: HEMATOCRIT 20.9 % (37.0-47.0); MEAN CORPUSCULAR VOLUME 102 FL (80-99); PLATELET COUNT 189 K/UL (150-450); RED BLOOD COUNT 2.05 M/UL (4.20-5.40); WHITE BLOOD COUNT 18.3 K/UL (4.8-10.8)
[2020-08-02 11:39] LABS: HEMOGLOBIN 6.7 G/DL (12.0-16.0)
[2020-08-02 11:44] LABS: BILIRUBIN,DIRECT 1.4 MG/DL (0.0-0.3)
--- NOTE | 2020-08-02 12:00 | NUR ---
NURSE NOTES: Blood transfusion started. No s/sx of reaction. Patient stable. Levophed titrated down.
--- NOTE | 2020-08-02 13:11 | Pulmonology Progress Note ---
Subjective ROS Limited/Unobtainable: Yes Interval Events: Undergoing daily HD Constitutional: Reports: no symptoms, other - Kp=438.6 last night HEENT: Repors: no symptoms Respiratory: Reports: no symptoms Cardiovascular: Reports: no symptoms Gastrointestinal/Abdominal: Reports: no symptoms Genitourinary: Reports: no symptoms Allergies: Coded Allergies: No Known Allergies (Unverified , 05/12/17) All Systems: reviewed and negative except above Objective Last 24 Hour Vital Signs Date Time Temp Pulse Resp B/P (MAP) Pulse Ox O2 Delivery O2 Flow Rate FiO2 08/02/20 12:30 95 19 87/37 (54) 100 08/02/20 12:00 60 08/02/20 12:00 97 19 170/47 (88) 100 08/02/20 12:00 91 08/02/20 11:30 99 17 114/44 (67) 100 08/02/20 11:00 115 20 142/39 (73) 100 08/02/20 10:38 106/47 08/02/20 10:30 108 19 106/47 (66) 100 08/02/20 10:00 104 16 143/46 (78) 100 08/02/20 09:30 105 31 89/66 (74) 96 08/02/20 09:00 107 31 90/67 (75) 95 08/02/20 08:30 118 33 88/56 (67) 94 08/02/20 08:00 124 32 92/65 (74) 100 08/02/20 08:00 60 08/02/20 08:00 Mechanical Ventilator 08/02/20 08:00 103 08/02/20 07:45 140 21 60 08/02/20 07:15 107 19 110/39 (62) 100 08/02/20 07:12 107 21 89/37 (54) 99 08/02/20 07:00 96/50 08/02/20 07:00 100 18 82/38 (53) 100 08/02/20 06:45 104 20 95/37 (56) 100 08/02/20 06:30 107 19 114/43 (66) 100 08/02/20 06:15 112 19 138/45 (76) 98 08/02/20 06:00 136/80 08/02/20 06:00 113 98/36 08/02/20 06:00 108 16 141/46 (77) 99 08/02/20 05:45 104 19 137/44 (75) 100 08/02/20 05:31 Mechanical Ventilator 100 08/02/20 05:30 100 17 137/50 (79) 100 08/02/20 05:15 99 17 133/64 (87) 100 08/02/20 05:00 99 17 120/47 (71) 100 08/02/20 05:00 110/52 08/02/20 04:45 98 19 128/54 (78) 100 08/02/20 04:30 96 17 135/53 (80) 100 08/02/20 04:15 93 16 119/51 (73) 100 08/02/20 04:00 99.0 92 19 124/43 (70) 100 08/02/20 04:00 98 08/02/20 04:00 Mechanical Ventilator 08/02/20 04:00 117/47 08/02/20 04:00 80 08/02/20 03:55 Mechanical Ventilator 100 08/02/20 03:45 94 17 123/47 (72) 100 08/02/20 03:30 96 19 111/44 (66) 100 08/02/20 03:15 97 16 117/47 (70) 100 08/02/20 03:00 100 18 98/47 (64) 100 08/02/20 03:00 117/47 08/02/20 02:45 96 15 100/48 (65) 100 08/02/20 02:30 100 16 116/47 (70) 100 08/02/20 02:15 95 15 126/52 (76) 08/02/20 02:00 94 15 147/53 (84) 100 08/02/20 02:00 126/52 08/02/20 01:45 95 16 143/55 (84) 100 08/02/20 01:45 99 19 60 08/02/20 01:30 97 20 140/46 (77) 100 08/02/20 01:15 98 16 142/48 (79) 100 08/02/20 01:00 98 17 147/54 (85) 100 08/02/20 01:00 142/51 08/02/20 00:45 100 16 138/52 (80) 100 08/02/20 00:30 100 17 128/54 (78) 100 08/02/20 00:15 98 18 147/52 (83) 100 08/02/20 00:00 Mechanical Ventilator 08/02/20 00:00 98 08/02/20 00:00 81 92/56 08/02/20 00:00 80 08/02/20 00:00 100.0 99 20 140/50 (80) 100 08/01/20 23:45 96 18 155/47 (83) 100 08/01/20 23:35 97 20 151/50 (83) 100 08/01/20 23:30 98 18 102/50 (67) 100 08/01/20 23:00 96 20 109/43 (65) 100 08/01/20 22:55 92/37 08/01/20 22:30 94 21 90/40 (57) 100 08/01/20 22:00 101.0 99 17 77/37 (50) 100 08/01/20 21:30 103 18 94/40 (58) 100 08/01/20 21:14 101.0 08/01/20 21:00 110 19 89/37 (54) 100 08/01/20 20:30 107 18 92/36 (54) 100 08/01/20 20:12 112 18 60 08/01/20 20:00 Mechanical Ventilator 08/01/20 20:00 109 08/01/20 20:00 102.4 107 19 84/41 (55) 100 08/01/20 20:00 80 08/01/20 19:30 105 17 101/56 (71) 100 08/01/20 19:00 99 13 100/41 (60) 100 08/01/20 18:00 105 16 121/47 (71) 100 08/01/20 17:00 98 16 92/33 (52) 100 08/01/20 16:00 105 08/01/20 16:00 98.3 99 19 130/47 (74) 100 08/01/20 16:00 80 08/01/20 16:00 Mechanical Ventilator 08/01/20 15:30 111 19 80 08/01/20 15:00 92 15 140/55 (83) 100 08/01/20 14:00 85 17 93/50 (64) 100 Intake and Output 08/01/20 08/02/20 19:00 07:00 Intake Total 415 ml 421.25 ml Output Total 350 ml 600 ml Balance 65 ml -178.75 ml IV Total 55 ml 271.25 ml Tube Feeding 360 ml 150 ml Stool Total 350 ml 600 ml General Appearance: WD/WN, no acute distress, other - intubation HEENT: normocephalic Respiratory: chest wall non-tender, crackles/rales Cardiovascular: normal rate, regular rhythm Microbiology Date/Time Source Procedure Growth Status 07/31/20 14:15 Blood Blood Culture - Preliminary NO GROWTH AFTER 24 HOURS Resulted 07/31/20 14:00 Blood Blood Culture - Preliminary NO GROWTH AFTER 24 HOURS Resulted Laboratory Tests 08/01/20 21:30: White Blood Count 16.7H, Red Blood Count 2.02L, Hemoglobin 6.8*L, Hematocrit 20.7L, Mean Corpuscular Volume 102H, Mean Corpuscular Hemoglobin 33.8H, Mean Corpuscular Hemoglobin Concent 33.0, Red Cell Distribution Width 17.9H, Platelet Count 161, Mean Platelet Volume 7.5, Neutrophils (%) (Auto) , Lymphocytes (%) (Auto) , Monocytes (%) (Auto) , Eosinophils (%) (Auto) , Basophils (%) (Auto) , Differential Total Cells Counted 100, Neutrophils % (Manual) 93H, Lymphocytes % (Manual) 1L, Monocytes % (Manual) 0L, Eosinophils % (Manual) 0, Basophils % (Ma nual) 1, Band Neutrophils 5, Platelet Estimate Adequate, Platelet Morphology Normal, Polychromasia 1+, Anisocytosis 1+, Macrocytosis 2+ 08/02/20 00:32: POC Whole Blood Glucose [Pending] 08/02/20 08:30: POC Whole Blood Glucose 147H 08/02/20 10:25: White Blood Count 18.3H, Red Blood Count 2.05L, Hemoglobin 6.7*L, Hematocrit 20.9L, Mean Corpuscular Volume 102H, Mean Corpuscular Hemoglobin 32.8H, Mean Corpuscular Hemoglobin Concent 32.1, Red Cell Distribution Width 18.0H, Platelet Count 189, Mean Platelet Volume 8.1, Neutrophils (%) (Auto) , Lymphocytes (%) (Auto) , Monocytes (%) (Auto) , Eosinophils (%) (Auto) , Basophils (%) (Auto) , Neutrophils % (Manual) [Pending], Lymphocytes % (Manual) [Pending], Platelet Estimate [Pending], Platelet Morphology [Pending], Sodium Level 140, Potassium Level 3.4L, Chloride Level 98, Carbon Dioxide Level 34H, Anion Gap 8, Blood Urea Nitrogen 44H, Creatinine 2.9H, Estimat Glomerular Filtration Rate 16.0, Glucose Level 200#H, Calcium Level 8.6, Phosphorus Level 3.9, Magnesium Level 1.8, Total Bilirubin 2.1H, Direct Bilirubin 1.4H, Aspartate Amino Transf (AST/SGOT) 44H, Alanine Aminotransferase (ALT/SGPT) 27, Alkaline Phosphatase 219H, C- Reactive Protein, Quantitative 35.0H, Pro-B-Type Natriuretic Peptide > 22135D, Total Protein 6.9, Albumin 2.3L, Globulin 4.6, Albumin/Globulin Ratio 0.5L Current Medications Medications (Trade) Dose Ordered Sig/Toya Route PRN Reason Start Time Stop Time Status Last Admin Dose Admin Acetaminophen (Tylenol) 650 mg EVERY 6 HOURS PRN NG Mild Pain (Pain Scale 1-3) 07/29/20 09:05 08/28/20 09:04 08/01/20 20:44 Acetaminophen (Tylenol) 650 mg EVERY 6 HOURS PRN NG Temp >100.5 07/29/20 09:15 08/28/20 09:14 08/02/20 08:17 Chlorhexidine Gluconate (Yessi-Hex 2%) 1 applic DAILY@1999 TOPIC 07/21/20 20:00 10/19/20 19:59 08/01/20 20:40 Clonidine HCl (Catapres Tab) 0.1 mg Q4H PRN NG bp over 165 syst 07/21/20 12:00 10/14/20 22:44 Dextrose (Dextrose 50%) 25 ml Q30M PRN IV Hypoglycemia 07/22/20 08:00 10/20/20 07:59 Dextrose (Dextrose 50%) 50 ml Q30M PRN IV Hypoglycemia 07/22/20 08:00 10/20/20 07:59 Docusate Sodium (Colace) 100 mg EVERY 8 HOURS NG 07/29/20 22:00 08/20/20 12:59 Epoetin Panchito (Epoetin Panchito(ESRD on dialysis)) 10,000 unit -THU SUBQ 07/30/20 21:00 10/25/20 20:59 08/01/20 21:55 Haloperidol Lactate (Haldol) 5 mg Q6H PRN IM Agitation 07/17/20 17:30 08/31/20 17:29 08/01/20 12:13 Insulin Aspart (NovoLOG) Q6HR SUBQ 07/22/20 08:15 10/20/20 11:29 08/01/20 17:26 Insulin Detemir (Levemir) 12 units Q12HR SUBQ 07/24/20 09:00 10/20/20 09:59 08/01/20 21:57 Loperamide HCl (Imodium) 2 mg Q6H PRN NG Diarrhea 07/29/20 15:45 08/28/20 15:44 Lorazepam (Ativan 2mg/ml 1ml) 1 mg Q4H PRN IV For Anxiety 07/30/20 06:37 08/06/20 06:36 08/01/20 08:48 Metoprolol Tartrate (Lopressor) 25 mg EVERY 6 HOURS NG 07/26/20 12:00 10/24/20 11:59 08/01/20 12:14 Norepinephrine Bitartrate 250 ml @ 0 mls/hr Q24H IV 08/02/20 10:30 08/05/20 10:29 08/02/20 10:38 Pantoprazole (Protonix) 40 mg EVERY 12 HOURS IVP 07/21/20 21:00 08/20/20 20:59 08/02/20 08:17 Piperacillin Sod/ Tazobactam Sod 2.25 gm/Dextrose 55 ml @ 110 mls/hr Q8HR@0200,1000,1800 IV 07/28/20 18:00 08/04/20 17:59 08/02/20 10:37 Quetiapine Fumarate (SEROqueL) 50 mg Q12HR ORAL 07/30/20 21:00 09/13/20 20:59 08/01/20 20:41 Vitamin D (Vitamin D) 5,000 unit DAILY ORAL 07/29/20 09:00 08/28/20 08:59 08/01/20 08:44 Assessment/Plan Assessment/Plan Assessment/Plan 1. COVID-19 pneumonia. 2. COPD 3. Pneumonia 4. Hypertensive emergency. - Blood pressure controlled. 5. Leukocytosis.; improving 6. Anemia. 7. Hyponatremia.; resolved 8. Hyperkalemia.; resolved 9. Hypochloridemia.; resolved 10. Hyperglycemia. 11. ESRD, on dialysis. 12. Respiratory failure; now intubated PLAN Continue O2; currently 80% Vent; AC mode On PEEP now 10 Agree with daily HD Saturations better FiO2 now 60% Noted rectal bleeding Transfusions in place Discussed with Dr Falk Will attempt wean when FiO2 and PEEP are lower Levy Law MD, MD Aug 02, 2020 13:11
--- NOTE | 2020-08-02 13:48 | Infectious Diseases Prog Note ---
Assessment/Plan Assessment/Plan IMPRESSION: COVID-19 disease, Altered mental status and encephalopathy, End-stage renal disease on hemodialysis, COPD, Asthma, Hypertension, Pancytopenia, Diabetes mellitus with hyperglycemia, Systolic heart failure, Aortic stenosis. Hypercapnic, hypoxemic respiratory failure GI bleeding Anemia RECOMMENDATION: Finished dexamethasone course Continue Zosyn & Vancomycin Sputum culture Subjective ROS Limited/Unobtainable: Yes Constitutional: Reports: fever, other - Wiad=848.4 Cardiovascular: Reports: other - on Levophed Gastrointestinal/Abdominal: Reports: other - rectal bleeding Allergies: Coded Allergies: No Known Allergies (Unverified , 05/12/17) Objective Last 24 Hour Vital Signs Date Time Temp Pulse Resp B/P (MAP) Pulse Ox O2 Delivery O2 Flow Rate FiO2 08/02/20 13:00 95 17 105/48 (67) 100 08/02/20 12:30 95 19 87/37 (54) 100 08/02/20 12:00 60 08/02/20 12:00 97 19 170/47 (88) 100 08/02/20 12:00 Mechanical Ventilator 08/02/20 12:00 91 08/02/20 11:30 99 17 114/44 (67) 100 08/02/20 11:00 115 20 142/39 (73) 100 08/02/20 10:38 106/47 08/02/20 10:30 108 19 106/47 (66) 100 08/02/20 10:00 104 16 143/46 (78) 100 08/02/20 09:30 105 31 89/66 (74) 96 08/02/20 09:00 107 31 90/67 (75) 95 08/02/20 08:47 101.4 08/02/20 08:30 118 33 88/56 (67) 94 08/02/20 08:00 124 32 92/65 (74) 100 08/02/20 08:00 60 08/02/20 08:00 Mechanical Ventilator 08/02/20 08:00 103 08/02/20 07:45 140 21 60 08/02/20 07:15 107 19 110/39 (62) 100 08/02/20 07:12 107 21 89/37 (54) 99 08/02/20 07:00 96/50 08/02/20 07:00 100 18 82/38 (53) 100 08/02/20 06:45 104 20 95/37 (56) 100 08/02/20 06:30 107 19 114/43 (66) 100 08/02/20 06:15 112 19 138/45 (76) 98 08/02/20 06:00 136/80 08/02/20 06:00 113 98/36 08/02/20 06:00 108 16 141/46 (77) 99 08/02/20 05:45 104 19 137/44 (75) 100 08/02/20 05:31 Mechanical Ventilator 100 08/02/20 05:30 100 17 137/50 (79) 100 08/02/20 05:15 99 17 133/64 (87) 100 08/02/20 05:00 99 17 120/47 (71) 100 08/02/20 05:00 110/52 08/02/20 04:45 98 19 128/54 (78) 100 08/02/20 04:30 96 17 135/53 (80) 100 08/02/20 04:15 93 16 119/51 (73) 100 08/02/20 04:00 99.0 92 19 124/43 (70) 100 08/02/20 04:00 98 08/02/20 04:00 Mechanical Ventilator 08/02/20 04:00 117/47 08/02/20 04:00 80 08/02/20 03:55 Mechanical Ventilator 100 08/02/20 03:45 94 17 123/47 (72) 100 08/02/20 03:30 96 19 111/44 (66) 100 08/02/20 03:15 97 16 117/47 (70) 100 08/02/20 03:00 100 18 98/47 (64) 100 08/02/20 03:00 117/47 08/02/20 02:45 96 15 100/48 (65) 100 08/02/20 02:30 100 16 116/47 (70) 100 08/02/20 02:15 95 15 126/52 (76) 08/02/20 02:00 94 15 147/53 (84) 100 08/02/20 02:00 126/52 08/02/20 01:45 95 16 143/55 (84) 100 08/02/20 01:45 99 19 60 08/02/20 01:30 97 20 140/46 (77) 100 08/02/20 01:15 98 16 142/48 (79) 100 08/02/20 01:00 98 17 147/54 (85) 100 08/02/20 01:00 142/51 08/02/20 00:45 100 16 138/52 (80) 100 08/02/20 00:30 100 17 128/54 (78) 100 08/02/20 00:15 98 18 147/52 (83) 100 08/02/20 00:00 Mechanical Ventilator 08/02/20 00:00 98 08/02/20 00:00 81 92/56 08/02/20 00:00 80 08/02/20 00:00 100.0 99 20 140/50 (80) 100 08/01/20 23:45 96 18 155/47 (83) 100 08/01/20 23:35 97 20 151/50 (83) 100 08/01/20 23:30 98 18 102/50 (67) 100 08/01/20 23:00 96 20 109/43 (65) 100 08/01/20 22:55 92/37 08/01/20 22:30 94 21 90/40 (57) 100 08/01/20 22:00 101.0 99 17 77/37 (50) 100 08/01/20 21:30 103 18 94/40 (58) 100 08/01/20 21:14 101.0 08/01/20 21:00 110 19 89/37 (54) 100 08/01/20 20:30 107 18 92/36 (54) 100 08/01/20 20:12 112 18 60 08/01/20 20:00 Mechanical Ventilator 08/01/20 20:00 109 08/01/20 20:00 102.4 107 19 84/41 (55) 100 08/01/20 20:00 80 08/01/20 19:30 105 17 101/56 (71) 100 08/01/20 19:00 99 13 100/41 (60) 100 08/01/20 18:00 105 16 121/47 (71) 100 08/01/20 17:00 98 16 92/33 (52) 100 08/01/20 16:00 105 08/01/20 16:00 98.3 99 19 130/47 (74) 100 08/01/20 16:00 80 08/01/20 16:00 Mechanical Ventilator 08/01/20 15:30 111 19 80 08/01/20 15:00 92 15 140/55 (83) 100 08/01/20 14:00 85 17 93/50 (64) 100 Height (Feet): 5 Height (Inches): 4.00 Weight (Pounds): 180 HEENT: mucous membranes moist, other - orally intubated Respiratory/Chest: other - on ventilator Cardiovascular: tachycardia, other - Femoral line Abdomen: soft, non tender, other - rectal tube Neurologic/Psychiatric: unresponsiveness Microbiology Date/Time Source Procedure Growth Status 07/31/20 14:15 Blood Blood Culture - Preliminary NO GROWTH AFTER 24 HOURS Resulted 07/31/20 14:00 Blood Blood Culture - Preliminary NO GROWTH AFTER 24 HOURS Resulted Laboratory Tests Test 08/01/20 21:30 08/02/20 00:32 08/02/20 08:30 08/02/20 10:25 White Blood Count 16.7 K/UL (4.8-10.8) H 18.3 K/UL (4.8-10.8) H Red Blood Count 2.02 M/UL (4.20-5.40) L 2.05 M/UL (4.20-5.40) L Hemoglobin 6.8 G/DL (12.0-16.0) *L 6.7 G/DL (12.0-16.0) *L Hematocrit 20.7 % (37.0-47.0) L 20.9 % (37.0-47.0) L Mean Corpuscular Volume 102 FL (80-99) H 102 FL (80-99) H Mean Corpuscular Hemoglobin 33.8 PG (27.0-31.0) H 32.8 PG (27.0-31.0) H Mean Corpuscular Hemoglobin Concent 33.0 G/DL (32.0-36.0) 32.1 G/DL (32.0-36.0) Red Cell Distribution Width 17.9 % (11.6-14.8) H 18.0 % (11.6-14.8) H Platelet Count 161 K/UL (150-450) 189 K/UL (150-450) Mean Platelet Volume 7.5 FL (6.5-10.1) 8.1 FL (6.5-10.1) Neutrophils (%) (Auto) % (45.0-75.0) % (45.0-75.0) Lymphocytes (%) (Auto) % (20.0-45.0) % (20.0-45.0) Monocytes (%) (Auto) % (1.0-10.0) % (1.0-10.0) Eosinophils (%) (Auto) % (0.0-3.0) % (0.0-3.0) Basophils (%) (Auto) % (0.0-2.0) % (0.0-2.0) Differential Total Cells Counted 100 Neutrophils % (Manual) 93 % (45-75) H Pending Lymphocytes % (Manual) 1 % (20-45) L Pending Monocytes % (Manual) 0 % (1-10) L Eosinophils % (Manual) 0 % (0-3) Basophils % (Manual) 1 % (0-2) Band Neutrophils 5 % (0-8) Platelet Estimate Adequate Pending Platelet Morphology Normal Pending Polychromasia 1+ Anisocytosis 1+ Macrocytosis 2+ POC Whole Blood Glucose Pending 147 MG/DL (74-106) H Sodium Level 140 MMOL/L (136-145) Potassium Level 3.4 MMOL/L (3.5-5.1) L Chloride Level 98 MMOL/L (98-107) Carbon Dioxide Level 34 MMOL/L (21-32) H Anion Gap 8 mmol/L (5-15) Blood Urea Nitrogen 44 mg/dL (7-18) H Creatinine 2.9 MG/DL (0.55-1.30) H Estimat Glomerular Filtration Rate 16.0 mL/min (>60) Glucose Level 200 MG/DL (74-106) #H Calcium Level 8.6 MG/DL (8.5-10.1) Phosphorus Level 3.9 MG/DL (2.5-4.9) Magnesium Level 1.8 MG/DL (1.8-2.4) Total Bilirubin 2.1 MG/DL (0.2-1.0) H Direct Bilirubin 1.4 MG/DL (0.0-0.3) H Aspartate Amino Transf (AST/SGOT) 44 U/L (15-37) H Alanine Aminotransferase (ALT/SGPT) 27 U/L (12-78) Alkaline Phosphatase 219 U/L (46-116) H C-Reactive Protein, Quantitative 35.0 mg/dL (0.00-0.90) H Pro-B-Type Natriuretic Peptide > 27511 pg/mL (0-125) H Total Protein 6.9 G/DL (6.4-8.2) Albumin 2.3 G/DL (3.4-5.0) L Globulin 4.6 g/dL Albumin/Globulin Ratio 0.5 (1.0-2.7) L Current Medications Medications (Trade) Dose Ordered Sig/Toya Route PRN Reason Start Time Stop Time Status Last Admin Dose Admin Acetaminophen (Tylenol) 650 mg EVERY 6 HOURS PRN NG Mild Pain (Pain Scale 1-3) 07/29/20 09:05 08/28/20 09:04 08/01/20 20:44 Acetaminophen (Tylenol) 650 mg EVERY 6 HOURS PRN NG Temp >100.5 07/29/20 09:15 08/28/20 09:14 08/02/20 08:17 Chlorhexidine Gluconate (Yessi-Hex 2%) 1 applic DAILY@1999 TOPIC 07/21/20 20:00 10/19/20 19:59 08/01/20 20:40 Clonidine HCl (Catapres Tab) 0.1 mg Q4H PRN NG bp over 165 syst 07/21/20 12:00 10/14/20 22:44 Dextrose (Dextrose 50%) 25 ml Q30M PRN IV Hypoglycemia 07/22/20 08:00 10/20/20 07:59 Dextrose (Dextrose 50%) 50 ml Q30M PRN IV Hypoglycemia 07/22/20 08:00 10/20/20 07:59 Docusate Sodium (Colace) 100 mg EVERY 8 HOURS NG 07/29/20 22:00 08/20/20 12:59 Epoetin Panchito (Epoetin Panchito(ESRD on dialysis)) 10,000 unit THU-THU-THU SUBQ 07/30/20 21:00 10/25/20 20:59 08/01/20 21:55 Haloperidol Lactate (Haldol) 5 mg Q6H PRN IM Agitation 07/17/20 17:30 08/31/20 17:29 08/01/20 12:13 Insulin Aspart (NovoLOG) Q6HR SUBQ 07/22/20 08:15 10/20/20 11:29 08/01/20 17:26 Insulin Detemir (Levemir) 12 units Q12HR SUBQ 07/24/20 09:00 10/20/20 09:59 08/01/20 21:57 Loperamide HCl (Imodium) 2 mg Q6H PRN NG Diarrhea 07/29/20 15:45 08/28/20 15:44 Lorazepam (Ativan 2mg/ml 1ml) 1 mg Q4H PRN IV For Anxiety 07/30/20 06:37 08/06/20 06:36 08/01/20 08:48 Metoprolol Tartrate (Lopressor) 25 mg EVERY 6 HOURS NG 07/26/20 12:00 10/24/20 11:59 08/01/20 12:14 Norepinephrine Bitartrate 250 ml @ 0 mls/hr Q24H IV 08/02/20 10:30 08/05/20 10:29 08/02/20 10:38 Pantoprazole (Protonix) 40 mg EVERY 12 HOURS IVP 07/21/20 21:00 08/20/20 20:59 08/02/20 08:17 Piperacillin Sod/ Tazobactam Sod 2.25 gm/Dextrose 55 ml @ 110 mls/hr Q8HR@0200,1000,1800 IV 07/28/20 18:00 08/04/20 17:59 08/02/20 10:37 Quetiapine Fumarate (SEROqueL) 50 mg Q12HR ORAL 07/30/20 21:00 09/13/20 20:59 08/01/20 20:41 Vitamin D (Vitamin D) 5,000 unit DAILY ORAL 07/29/20 09:00 08/28/20 08:59 08/01/20 08:44 Kalin Briseno MD Aug 02, 2020 13:48
--- NOTE | 2020-08-02 14:30 | NUR ---
NURSE NOTES: Transfusion completed. VSS. No s/sx of reaction.
--- NOTE | 2020-08-02 15:10 | NUR ---
Clutch OperatorMigration Specialist SI: Respiratory Failure, ETT/Vent Support, COVID PNA T 101.4, HR 107, RR 31, BP 90/67, Cxray Multi lobar infiltrates AC 16, FiO2 60%, TV 500, PEEP 10, O2 Sat 100% IS: Norepinepherine IV Albumin IV Pipercacillin/tazobactam IV Protonix IV ICU Status
--- NOTE | 2020-08-02 16:46 | General Progress Note ---
Subjective ROS Limited/Unobtainable: Yes Allergies: Coded Allergies: No Known Allergies (Unverified , 05/12/17) Objective Last 24 Hour Vital Signs Date Time Temp Pulse Resp B/P (MAP) Pulse Ox O2 Delivery O2 Flow Rate FiO2 08/02/20 16:00 40 08/02/20 16:00 Mechanical Ventilator 08/02/20 14:30 95 16 147/49 (81) 100 08/02/20 14:00 93 12 117/42 (67) 100 08/02/20 13:30 95 22 114/44 (67) 100 08/02/20 13:00 95 17 105/48 (67) 100 08/02/20 12:30 95 19 87/37 (54) 100 08/02/20 12:00 60 08/02/20 12:00 97 19 170/47 (88) 100 08/02/20 12:00 Mechanical Ventilator 08/02/20 12:00 91 08/02/20 11:30 99 17 114/44 (67) 100 08/02/20 11:00 115 20 142/39 (73) 100 08/02/20 10:38 106/47 08/02/20 10:30 108 19 106/47 (66) 100 08/02/20 10:00 104 16 143/46 (78) 100 08/02/20 09:30 105 31 89/66 (74) 96 08/02/20 09:00 107 31 90/67 (75) 95 08/02/20 08:47 101.4 08/02/20 08:30 118 33 88/56 (67) 94 08/02/20 08:00 124 32 92/65 (74) 100 08/02/20 08:00 60 08/02/20 08:00 Mechanical Ventilator 08/02/20 08:00 103 08/02/20 07:45 140 21 60 08/02/20 07:15 107 19 110/39 (62) 100 08/02/20 07:12 107 21 89/37 (54) 99 08/02/20 07:00 96/50 08/02/20 07:00 100 18 82/38 (53) 100 08/02/20 06:45 104 20 95/37 (56) 100 08/02/20 06:30 107 19 114/43 (66) 100 08/02/20 06:15 112 19 138/45 (76) 98 08/02/20 06:00 136/80 08/02/20 06:00 113 98/36 08/02/20 06:00 108 16 141/46 (77) 99 08/02/20 05:45 104 19 137/44 (75) 100 08/02/20 05:31 Mechanical Ventilator 100 08/02/20 05:30 100 17 137/50 (79) 100 08/02/20 05:15 99 17 133/64 (87) 100 08/02/20 05:00 99 17 120/47 (71) 100 08/02/20 05:00 110/52 08/02/20 04:45 98 19 128/54 (78) 100 08/02/20 04:30 96 17 135/53 (80) 100 08/02/20 04:15 93 16 119/51 (73) 100 08/02/20 04:00 99.0 92 19 124/43 (70) 100 08/02/20 04:00 98 08/02/20 04:00 Mechanical Ventilator 08/02/20 04:00 117/47 08/02/20 04:00 80 08/02/20 03:55 Mechanical Ventilator 100 08/02/20 03:45 94 17 123/47 (72) 100 08/02/20 03:30 96 19 111/44 (66) 100 08/02/20 03:15 97 16 117/47 (70) 100 08/02/20 03:00 100 18 98/47 (64) 100 08/02/20 03:00 117/47 08/02/20 02:45 96 15 100/48 (65) 100 08/02/20 02:30 100 16 116/47 (70) 100 08/02/20 02:15 95 15 126/52 (76) 08/02/20 02:00 94 15 147/53 (84) 100 08/02/20 02:00 126/52 08/02/20 01:45 95 16 143/55 (84) 100 08/02/20 01:45 99 19 60 08/02/20 01:30 97 20 140/46 (77) 100 08/02/20 01:15 98 16 142/48 (79) 100 08/02/20 01:00 98 17 147/54 (85) 100 08/02/20 01:00 142/51 08/02/20 00:45 100 16 138/52 (80) 100 08/02/20 00:30 100 17 128/54 (78) 100 08/02/20 00:15 98 18 147/52 (83) 100 08/02/20 00:00 Mechanical Ventilator 08/02/20 00:00 98 08/02/20 00:00 81 92/56 08/02/20 00:00 80 08/02/20 00:00 100.0 99 20 140/50 (80) 100 08/01/20 23:45 96 18 155/47 (83) 100 08/01/20 23:35 97 20 151/50 (83) 100 08/01/20 23:30 98 18 102/50 (67) 100 08/01/20 23:00 96 20 109/43 (65) 100 08/01/20 22:55 92/37 08/01/20 22:30 94 21 90/40 (57) 100 08/01/20 22:00 101.0 99 17 77/37 (50) 100 08/01/20 21:30 103 18 94/40 (58) 100 08/01/20 21:14 101.0 08/01/20 21:00 110 19 89/37 (54) 100 08/01/20 20:30 107 18 92/36 (54) 100 08/01/20 20:12 112 18 60 08/01/20 20:00 Mechanical Ventilator 08/01/20 20:00 109 08/01/20 20:00 102.4 107 19 84/41 (55) 100 08/01/20 20:00 80 08/01/20 19:30 105 17 101/56 (71) 100 08/01/20 19:00 99 13 100/41 (60) 100 08/01/20 18:00 105 16 121/47 (71) 100 08/01/20 17:00 98 16 92/33 (52) 100 Intake and Output 08/01/20 08/02/20 19:00 07:00 Intake Total 415 ml 421.25 ml Output Total 350 ml 600 ml Balance 65 ml -178.75 ml IV Total 55 ml 271.25 ml Tube Feeding 360 ml 150 ml Stool Total 350 ml 600 ml Laboratory Tests 08/01/20 21:30: White Blood Count 16.7H, Red Blood Count 2.02L, Hemoglobin 6.8*L, Hematocrit 20.7L, Mean Corpuscular Volume 102H, Mean Corpuscular Hemoglobin 33.8H, Mean Corpuscular Hemoglobin Concent 33.0, Red Cell Distribution Width 17.9H, Platelet Count 161, Mean Platelet Volume 7.5, Neutrophils (%) (Auto) , Lymphocytes (%) (Auto) , Monocytes (%) (Auto) , Eosinophils (%) (Auto) , Basophils (%) (Auto) , Differential Total Cells Counted 100, Neutrophils % (Manual) 93H, Lymphocytes % (Manual) 1L, Monocytes % (Manual) 0L, Eosinophils % (Manual) 0, Basophils % (Manual) 1, Band Neutrophils 5, Platelet Estimate Adequate, Platelet Morphology Normal, Polychromasia 1+, Anisocytosis 1+, Macrocytosis 2+ 08/02/20 00:32: POC Whole Blood Glucose [Pending] 08/02/20 08:30: POC Whole Blood Glucose 147H 08/02/20 10:25: White Blood Count 18.3H, Red Blood Count 2.05L, Hemoglobin 6.7*L, Hematocrit 20.9L, Mean Corpuscular Volume 102H, Mean Corpuscular Hemoglobin 32.8H, Mean Corpuscular Hemoglobin Concent 32.1, Red Cell Distribution Width 18.0H, Platelet Count 189, Mean Platelet Volume 8.1, Neutrophils (%) (Auto) , Lymphocytes (%) (Auto) , Monocytes (%) (Auto) , Eosinophils (%) (Auto) , Basophils (%) (Auto) , Differential Total Cells Counted 100, Neutrophils % (Manual) 91H, Lymphocytes % (Manual) 2L, Monocytes % (Manual) 1, Eosinophils % (Manual) 1, Basophils % (Manual) 0, Band Neutrophils 5, Platelet Estimate Adequate, Platelet Morphology Normal, Anisocytosis 1+, Macrocytosis 1+, Hypochromasia 1+, Sodium Level 140, Potassium Level 3.4L, Chloride Level 98, Carbon Dioxide Level 34H, Anion Gap 8, Blood Urea Nitrogen 44H, Creatinine 2.9H, Estimat Glomerular Filtration Rate 16.0, Glucose Level 200#H, Calcium Level 8.6, Phosphorus Level 3.9, Magnesium Level 1.8, Total Bilirubin 2.1H, Direct Bilirubin 1.4H, Aspartate Amino Transf (AST/SGOT) 44H, Alanine Aminotransferase (ALT/SGPT) 27, Alkaline Phosphatase 219H, C-Reactive Protein, Quantitative 35.0H, Pro-B-Type Natriuretic Peptide > 10476M, Total Protein 6.9, Albumin 2.3L, Globulin 4.6, Albumin/Globulin Ratio 0.5L Height (Feet): 5 Height (Inches): 4.00 Weight (Pounds): 180 Assessment/Plan Problem List: (1) Pneumonia ICD Codes: J18.9 - Pneumonia, unspecified organism SNOMED: 522385735 (2) Hypertension ICD Codes: I10 - Essential (primary) hypertension SNOMED: 73080464 (3) Renal failure ICD Codes: N19 - Unspecified kidney failure SNOMED: 03858958 (4) Anemia in chronic kidney disease (CKD) ICD Codes: N18.9 - Chronic kidney disease, unspecified; D63.1 - Anemia in chronic kidney disease SNOMED: 760332808 (5) weakness (6) ESRD (end stage renal disease) ICD Codes: N18.6 - End stage renal disease SNOMED: 70477620 (7) Diabetic nephropathy with proteinuria ICD Codes: E11.21 - Type 2 diabetes mellitus with diabetic nephropathy SNOMED: 57288530, 215069197 Status: progressing, deteriorating Assessment/Plan: on pressors deterioating very poor prognosis gi bleed dr hua is already consulted niddm htn esrd on hd resp failure niddm covid positive Makenna Thomas MD Aug 02, 2020 16:46
--- NOTE | 2020-08-02 17:00 | NUR ---
NURSE NOTES: Updated Dr. Leonard on patient condition. No new orders.
--- NOTE | 2020-08-02 18:00 | NUR ---
NURSE NOTES: Levophed turned off. Blood transfusing. No s/sx of reaction.
--- NOTE | 2020-08-02 19:30 | Cardiac Electrophysiology PN ---
Assessment/Plan Assessment/Plan 1. Accelerated HTN.Now on Lopressor 25 po q 6hr and p.r.n.clonidine. EF 40- 45% 2. Atrial fib with RVR with HR up to 150s. On Lopressor 25 q 6 hr 3. ESRD, on hemodialysis. 4. Hyponatremia, sodium 129. Fluid restriction per Dr. Falk. 5. Volume overload, BNP of more than 35,000 and EF 40-45%. On HD 6. Covid PNA and resp failure on the Vent with 80% Fio2 and PEEP 15 Covid positive 07/11 and 07/17 7. Rectal bleeding. S/P PRBC . FU Gi DW RN Subjective Subjective Confused in restraints. In Covid isolation. Intubated on 60% Fio2 and PEEP 10 on had HD with 500cc out today Now HR 90s in atrial fib on Lopressor. Getting PRBC for rectal bleeding Objective Last 24 Hour Vital Signs Date Time Temp Pulse Resp B/P (MAP) Pulse Ox O2 Delivery O2 Flow Rate FiO2 08/02/20 19:00 98 18 130/92 (105) 96 08/02/20 18:30 104 18 154/53 (86) 100 08/02/20 18:00 97 19 130/92 (105) 99 08/02/20 17:00 98 22 112/41 (64) 96 08/02/20 16:30 109 12 118/44 (68) 97 08/02/20 16:00 40 08/02/20 16:00 103 08/02/20 16:00 Mechanical Ventilator 08/02/20 16:00 99 19 127/47 (73) 100 08/02/20 15:30 98 23 127/44 (71) 100 08/02/20 15:00 104 17 167/62 (97) 100 08/02/20 14:30 95 16 147/49 (81) 100 08/02/20 14:30 98.7 08/02/20 14:00 93 12 117/42 (67) 100 08/02/20 13:30 95 22 114/44 (67) 100 08/02/20 13:25 106 17 40 08/02/20 13:00 95 17 105/48 (67) 100 08/02/20 12:30 95 19 87/37 (54) 100 08/02/20 12:00 60 12/31/20 12:00 97 19 170/47 (88) 100 08/02/20 12:00 Mechanical Ventilator 08/02/20 12:00 91 08/02/20 12:00 99.9 08/02/20 11:30 99 17 114/44 (67) 100 08/02/20 11:20 99.6 08/02/20 11:00 115 20 142/39 (73) 100 08/02/20 10:38 106/47 08/02/20 10:30 108 19 106/47 (66) 100 08/02/20 10:00 104 16 143/46 (78) 100 08/02/20 10:00 143/46 08/02/20 09:30 105 31 89/66 (74) 96 08/02/20 09:00 107 31 90/67 (75) 95 08/02/20 09:00 126/45 08/02/20 09:00 101.4 08/02/20 08:47 101.4 08/02/20 08:30 118 33 88/56 (67) 94 08/02/20 08:00 124 32 92/65 (74) 100 08/02/20 08:00 100.9 08/02/20 08:00 60 08/02/20 08:00 Mechanical Ventilator 08/02/20 08:00 102/61 08/02/20 08:00 103 08/02/20 07:45 140 21 60 08/02/20 07:45 89/37 08/02/20 07:30 82/38 08/02/20 07:15 87/35 08/02/20 07:15 107 19 110/39 (62) 100 08/02/20 07:12 107 21 89/37 (54) 99 08/02/20 07:00 96/50 08/02/20 07:00 100 18 82/38 (53) 100 08/02/20 06:45 104 20 95/37 (56) 100 08/02/20 06:30 107 19 114/43 (66) 100 08/02/20 06:15 112 19 138/45 (76) 98 08/02/20 06:00 136/80 08/02/20 06:00 113 98/36 08/02/20 06:00 108 16 141/46 (77) 99 08/02/20 05:45 104 19 137/44 (75) 100 12/31/20 05:31 Mechanical Ventilator 100 08/02/20 05:30 100 17 137/50 (79) 100 08/02/20 05:15 99 17 133/64 (87) 100 08/02/20 05:00 99 17 120/47 (71) 100 08/02/20 05:00 110/52 08/02/20 04:45 98 19 128/54 (78) 100 08/02/20 04:30 96 17 135/53 (80) 100 08/02/20 04:15 93 16 119/51 (73) 100 08/02/20 04:00 99.0 92 19 124/43 (70) 100 08/02/20 04:00 98 08/02/20 04:00 Mechanical Ventilator 08/02/20 04:00 117/47 08/02/20 04:00 80 08/02/20 03:55 Mechanical Ventilator 100 08/02/20 03:45 94 17 123/47 (72) 100 08/02/20 03:30 96 19 111/44 (66) 100 08/02/20 03:15 97 16 117/47 (70) 100 08/02/20 03:00 100 18 98/47 (64) 100 08/02/20 03:00 117/47 08/02/20 02:45 96 15 100/48 (65) 100 08/02/20 02:30 100 16 116/47 (70) 100 08/02/20 02:15 95 15 126/52 (76) 08/02/20 02:00 94 15 147/53 (84) 100 08/02/20 02:00 126/52 08/02/20 01:45 95 16 143/55 (84) 100 08/02/20 01:45 99 19 60 08/02/20 01:30 97 20 140/46 (77) 100 08/02/20 01:15 98 16 142/48 (79) 100 08/02/20 01:00 98 17 147/54 (85) 100 08/02/20 01:00 142/51 08/02/20 00:45 100 16 138/52 (80) 100 08/02/20 00:30 100 17 128/54 (78) 100 08/02/20 00:15 98 18 147/52 (83) 100 08/02/20 00:00 Mechanical Ventilator 08/02/20 00:00 98 08/02/20 00:00 81 92/56 08/02/20 00:00 80 08/02/20 00:00 100.0 99 20 140/50 (80) 100 08/01/20 23:45 96 18 155/47 (83) 100 08/01/20 23:35 97 20 151/50 (83) 100 08/01/20 23:30 98 18 102/50 (67) 100 08/01/20 23:00 96 20 109/43 (65) 100 08/01/20 22:55 92/37 08/01/20 22:30 94 21 90/40 (57) 100 08/01/20 22:00 101.0 99 17 77/37 (50) 100 08/01/20 21:30 103 18 94/40 (58) 100 08/01/20 21:14 101.0 08/01/20 21:00 110 19 89/37 (54) 100 08/01/20 20:30 107 18 92/36 (54) 100 08/01/20 20:12 112 18 60 08/01/20 20:00 Mechanical Ventilator 08/01/20 20:00 109 08/01/20 20:00 102.4 107 19 84/41 (55) 100 08/01/20 20:00 80 08/01/20 19:30 105 17 101/56 (71) 100 Intake and Output 08/01/20 08/02/20 19:00 07:00 Intake Total 415 ml 421.25 ml Output Total 350 ml 600 ml Balance 65 ml -178.75 ml IV Total 55 ml 271.25 ml Tube Feeding 360 ml 150 ml Stool Total 350 ml 600 ml Laboratory Tests Test 08/01/20 21:30 08/02/20 00:32 08/02/20 08:30 08/02/20 10:25 White Blood Count 16.7 K/UL (4.8-10.8) H 18.3 K/UL (4.8-10.8) H Red Blood Count 2.02 M/UL (4.20-5.40) L 2.05 M/UL (4.20-5.40) L Hemoglobin 6.8 G/DL (12.0-16.0) *L 6.7 G/DL (12.0-16.0) *L Hematocrit 20.7 % (37.0-47.0) L 20.9 % (37.0-47.0) L Mean Corpuscular Volume 102 FL (80-99) H 102 FL (80-99) H Mean Corpuscular Hemoglobin 33.8 PG (27.0-31.0) H 32.8 PG (27.0-31.0) H Mean Corpuscular Hemoglobin Concent 33.0 G/DL (32.0-36.0) 32.1 G/DL (32.0-36.0) Red Cell Distribution Width 17.9 % (11.6-14.8) H 18.0 % (11.6-14.8) H Platelet Count 161 K/UL (150-450) 189 K/UL (150-450) Mean Platelet Volume 7.5 FL (6.5-10.1) 8.1 FL (6.5-10.1) Neutrophils (%) (Auto) % (45.0-75.0) % (45.0-75.0) Lymphocytes (%) (Auto) % (20.0-45.0) % (20.0-45.0) Monocytes (%) (Auto) % (1.0-10.0) % (1.0-10.0) Eosinophils (%) (Auto) % (0.0-3.0) % (0.0-3.0) Basophils (%) (Auto) % (0.0-2.0) % (0.0-2.0) Differential Total Cells Counted 100 100 Neutrophils % (Manual) 93 % (45-75) H 91 % (45-75) H Lymphocytes % (Manual) 1 % (20-45) L 2 % (20-45) L Monocytes % (Manual) 0 % (1-10) L 1 % (1-10) Eosinophils % (Manual) 0 % (0-3) 1 % (0-3) Basophils % (Manual) 1 % (0-2) 0 % (0-2) Band Neutrophils 5 % (0-8) 5 % (0-8) Platelet Estimate Adequate Adequate Platelet Morphology Normal Normal Polychromasia 1+ Anisocytosis 1+ 1+ Macrocytosis 2+ 1+ POC Whole Blood Glucose Pending 147 MG/DL (74-106) H Hypochromasia 1+ Sodium Level 140 MMOL/L (136-145) Potassium Level 3.4 MMOL/L (3.5-5.1) L Chloride Level 98 MMOL/L (98-107) Carbon Dioxide Level 34 MMOL/L (21-32) H Anion Gap 8 mmol/L (5-15) Blood Urea Nitrogen 44 mg/dL (7-18) H Creatinine 2.9 MG/DL (0.55-1.30) H Estimat Glomerular Filtration Rate 16.0 mL/min (>60) Glucose Level 200 MG/DL (74-106) #H Calcium Level 8.6 MG/DL (8.5-10.1) Phosphorus Level 3.9 MG/DL (2.5-4.9) Magnesium Level 1.8 MG/DL (1.8-2.4) Total Bilirubin 2.1 MG/DL (0.2-1.0) H Direct Bilirubin 1.4 MG/DL (0.0-0.3) H Aspartate Amino Transf (AST/SGOT) 44 U/L (15-37) H Alanine Aminotransferase (ALT/SGPT) 27 U/L (12-78) Alkaline Phosphatase 219 U/L (46-116) H C-Reactive Protein, Quantitative 35.0 mg/dL (0.00-0.90) H Pro-B-Type Natriuretic Peptide > 76063 pg/mL (0-125) H Total Protein 6.9 G/DL (6.4-8.2) Albumin 2.3 G/DL (3.4-5.0) L Globulin 4.6 g/dL Albumin/Globulin Ratio 0.5 (1.0-2.7) L Microbiology Date/Time Source Procedure Growth Status 07/31/20 14:15 Blood Blood Culture - Preliminary NO GROWTH AFTER 24 HOURS Resulted 07/31/20 14:00 Blood Blood Culture - Preliminary NO GROWTH AFTER 24 HOURS Resulted Objective HEAD AND NECK: Orally intubated LUNGS: Coarse rhonchi. CARDIOVASCULAR: Regular S1 and S2 with no gallop or murmur. ABDOMEN: Soft. EXTREMITIES: No pitting edema. Zev Gatica MD Aug 02, 2020 19:30
--- NOTE | 2020-08-02 19:37 | NUR ---
NURSE HAND-OFF REPORT: Latest Vital Signs: Temperature 98.7 , Pulse 98 , B/P 130 /92 , Respiratory Rate 18 , O2 SAT 96 , Nasal Cannula, O2 Flow Rate 3.0 . Vital Sign Comment: STABLE EKG Rhythm: Atrial Fibrillation Rhythm change?: N Notified?: Y Vince Gatica MD Response: Latest Elizabeth Fall Score: 50 Fall Risk: High Risk Safety Measures: Call light Within Reach, Bed Alarm Zone 1, Side Rails Side Rails x3, Bed position Low and Locked. Fall Precautions: Door Sign Report given to Debora LITTLE. Plan of care endorsed. No active bleeding on shift. Second unit of PRBC infusing. Levophed off at thi time. BP WNL. Endorsed to F/U regarding potassium.
[2020-08-02] MEDS: Dyna-Hex 2% Top Sol 2oz TOPIC SCH (20:00)
[2020-08-02] MEDS ORDERED: NS Irrig 1000ml ONE (20:48)
--- NOTE | 2020-08-02 22:35 | Psychiatric Progress Note ---
Psychiatry Progress Note Psychiatry Progress Note Medications Current Medications Medications (Trade) Dose Ordered Sig/Toya Route PRN Reason Start Time Stop Time Status Last Admin Dose Admin Acetaminophen (Tylenol) 650 mg EVERY 6 HOURS PRN NG Mild Pain (Pain Scale 1-3) 07/29/20 09:05 08/28/20 09:04 08/01/20 20:44 Acetaminophen (Tylenol) 650 mg EVERY 6 HOURS PRN NG Temp >100.5 07/29/20 09:15 08/28/20 09:14 08/02/20 08:17 Chlorhexidine Gluconate (Yessi-Hex 2%) 1 applic DAILY@1999 TOPIC 07/21/20 20:00 10/19/20 19:59 08/02/20 20:00 Clonidine HCl (Catapres Tab) 0.1 mg Q4H PRN NG bp over 165 syst 07/21/20 12:00 10/14/20 22:44 Dextrose (Dextrose 50%) 25 ml Q30M PRN IV Hypoglycemia 07/22/20 08:00 10/20/20 07:59 Dextrose (Dextrose 50%) 50 ml Q30M PRN IV Hypoglycemia 07/22/20 08:00 10/20/20 07:59 Docusate Sodium (Colace) 100 mg EVERY 8 HOURS NG 07/29/20 22:00 08/20/20 12:59 08/02/20 21:33 Epoetin Panchito (Epoetin Panchito(ESRD on dialysis)) 10,000 unit THU-THU-THU SUBQ 07/30/20 21:00 10/25/20 20:59 08/01/20 21:55 Haloperidol Lactate (Haldol) 5 mg Q6H PRN IM Agitation 07/17/20 17:30 08/31/20 17:29 08/01/20 12:13 Insulin Aspart (NovoLOG) Q6HR SUBQ 07/22/20 08:15 10/20/20 11:29 08/01/20 17:26 Insulin Detemir (Levemir) 12 units Q12HR SUBQ 07/24/20 09:00 10/20/20 09:59 08/01/20 21:57 Loperamide HCl (Imodium) 2 mg Q6H PRN NG Diarrhea 07/29/20 15:45 08/28/20 15:44 Lorazepam (Ativan 2mg/ml 1ml) 1 mg Q4H PRN IV For Anxiety 07/30/20 06:37 08/06/20 06:36 08/01/20 08:48 Metoprolol Tartrate (Lopressor) 25 mg EVERY 6 HOURS NG 07/26/20 12:00 10/24/20 11:59 08/01/20 12:14 Norepinephrine Bitartrate 250 ml @ 0 mls/hr Q24H IV 08/02/20 10:30 08/05/20 10:29 08/02/20 10:38 Pantoprazole (Protonix) 40 mg EVERY 12 HOURS IVP 07/21/20 21:00 08/20/20 20:59 08/02/20 21:31 Piperacillin Sod/ Tazobactam Sod 2.25 gm/Dextrose 55 ml @ 110 mls/hr Q8HR@0200,1000,1800 IV 07/28/20 18:00 08/04/20 17:59 08/02/20 10:37 Quetiapine Fumarate (SEROqueL) 50 mg Q12HR ORAL 07/30/20 21:00 09/13/20 20:59 08/02/20 21:32 Vitamin D (Vitamin D) 5,000 unit DAILY ORAL 07/29/20 09:00 08/28/20 08:59 08/01/20 08:44 Neurological/Psychiatric: Reports: anxiety, depressed, emotional problems; Denies: no symptoms, headache, numbness, paresthesia, pre-existing deficit, seizure, tingling, tremors, weakness, other Allergies: Coded Allergies: No Known Allergies (Unverified , 05/12/17) Objective Data Height (Feet): 5 Height (Inches): 4.00 Weight (Pounds): 180 General Appearance: no apparent distress, other Additional Comments: MENTAL STATUS EXAMINATION: The patient is having waxing and waning consciousness. Mood is irritable and anxious. Affect is blunted, congruent with mood. Thought process is concrete. Thought content, no suicidal or homicidal ideation. Cognition is impaired. Insight and judgment is impaired. Assessment/Plan [place] I: ASSESSMENT: [place] I Acute toxic encephalopathy. [place] II Deferred. [place] III COVID-19. [place] IV Low. [place] V 20. PLAN: 1. We will start the patient on low dose of antipsychotics. 2. restraints. 3. Discussed with the nurse. Status: progressing, deteriorating Status Narrative ASSESSMENT: [place] I Acute toxic encephalopathy. [place] II Deferred. [place] III COVID-19. [place] IV Low. [place] V 20. PLAN: 1. We will start the patient on low dose of antipsychotics. 2. restraints. 3. Discussed with the nurse. Assessment/Plan: ASSESSMENT: [place] I Acute toxic encephalopathy. [place] II Deferred. [place] III COVID-19. [place] IV Low. [place] V 20. PLAN: 1. We will start the patient on low dose of antipsychotics. 2. restraints. 3. Discussed with the nurse. Alecia Collins MD Aug 02, 2020 22:34
[2020-08-03] VITALS (36 sets, daily range): BP systolic 80–154; BP diastolic 31–97
--- NOTE | 2020-08-03 | NUR ---
NURSE NOTES: complete bed bath and wound care done
[2020-08-03] MEDS: Piperacillin/Tazobactam 2.25 GM in D5W 55 ML IV SCH ×3 (02:00→17:32)
[2020-08-03 05:52] LABS: HEMATOCRIT 27.1 % (37.0-47.0); HEMOGLOBIN 10.2 G/DL (12.0-16.0); MEAN CORPUSCULAR VOLUME 101 FL (80-99); PLATELET COUNT 167 K/UL (150-450); RED CELL DISTRIBUTION WIDTH 16.8 % (11.6-14.8)
[2020-08-03] MEDS: NovoLOG Insulin Flexpen SUBQ SCH ×4 (06:00→17:50)
[2020-08-03] MEDS: Docusate 100mg/10ml Liq NG SCH ×3 (06:00→21:47)
[2020-08-03 06:15] LABS: WHITE BLOOD COUNT 24.4 K/UL (4.8-10.8)
[2020-08-03 06:30] LABS: PHOSPHORUS 7.3 MG/DL (2.5-4.9)
--- NOTE | 2020-08-03 06:56 | Hematology/Onc Progress Note ---
Assessment/Plan Assessment/Plan Assessment/Plan 1. Pancytopenia with hx anemia due to underlying chronic disease. Have reviewed prior workup, ferritin is >1000, covid19++++ --> Continue to closely monitor. --> Transfuse if hgb <7 --> ferritin is >1000 --> give epogen, has been started 3x a week --> as per renal --> monitor for gi bleed, gi consulted --> hgb trend 7.8-->9.3->8.9->>11-->9.5->8.9->8->8.2-->7.6-->6.8->10 --> plt 42-->50-->65-->104-->109-->176 --> ABX zosyn --> smear has been reviewed --> hep and hiv neg -> prbc 08/02 2. LEUKOCYTOSIS now, prior was Leukopenia likely reactive process v infection covid19++++ --> hepatitis and hiv prior negative --> neutropenic precautions if ANC <1500 --> trending stable --> imaging reviewed and no hsm / cirrhosis noted --> wbc 2.7-->3.6->>>2->5-->8-->17->12-->11-->24 --> increase in wbc due to steriods --> ANC goal >1500 3. End-stage renal disease, on hemodialysis three times a week. --> renal consulted --> continue hd 4. History of coronary artery disease. --> cards reviewed --> diuresis prn 5. History of anemia due to low B12, low iron --> b12 is currently within normal limits --> reobtain q6mo 6. Dizziness and unsteady gait 7. Covid 19 --> rx per id 8. DVt ppsx with SCDs Greatly appreciate consultation and Selvin RN Subjective Constitutional: Denies: no symptoms, chills, fever, malaise, weakness, other HEENT: Denies: no symptoms, eye pain, blurred vision, tearing, double vision, ear pain, ear discharge, nose pain, nose congestion, throat pain, throat swelling, mouth pain, mouth swelling, other Genitourinary: Denies: no symptoms, burning, discharge, frequency, flank pain, hematuria, incontinence, pain, urgency, other Neurologic/Psychiatric: Denies: no symptoms, anxiety, depressed, emotional problems, headache, numbness, paresthesia, pre-existing deficit, seizure, tingling, tremors, weakness, other Endocrine: Denies: no symptoms, excessive sweating, flushing, intolerance to cold, intolerance to heat, increased hunger, increased thirst, increased urine, unexplained weight gain, unexplained weight loss, other Allergies: Coded Allergies: No Known Allergies (Unverified , 05/12/17) Subjective 07/19 meds noted, s/p hd, bp has improved, no bleeding, labs reviewed 07/20 labs are noted, no bleeding, meds reviewed, no major changes, hgb 9.5 07/22 remains in the icu, no bleeding, meds reviewed, on nc 07/23 labs noted, no bleeding, in icu, hgb 8.7, plt 90 07/24 is intubated, hgb 11, no bleeding, plt are better, meds reviewed 07/25 remains on zosyn, labs are noted, no bleeding, icu, meds ntoed, s/p hd yesterday with renal 07/26 seen at bedside with Justo Toro, doing HD today, is in the icu, have ordered epo 07/27 black tarry stools overnight, no bleeding, labs reviewed, plt better 07/29 restraints, is agitated, no bleeding, hgb 8.2, improved s/p transfusion 07/30 restraints, is for rectal tube insertion today for diarrhea 07/31 hd was done yesterday, labs reviewed, meds noted, for duplex today then scds 08/01 hd as needed, did have fever overnight is on zosyn 08/02 labs noted, pending cbc for the am, 1 unit prbc is ordered, dw Justo Cazares, levo lower 08/03 remains in icu, restraints, abx, wbc 24, hgb 10 Objective Objective Current Medications Medications (Trade) Dose Ordered Sig/Toya Route PRN Reason Start Time Stop Time Status Last Admin Dose Admin Acetaminophen (Tylenol) 650 mg EVERY 6 HOURS PRN NG Mild Pain (Pain Scale 1-3) 07/29/20 09:05 08/28/20 09:04 08/01/20 20:44 Acetaminophen (Tylenol) 650 mg EVERY 6 HOURS PRN NG Temp >100.5 07/29/20 09:15 08/28/20 09:14 08/02/20 08:17 Chlorhexidine Gluconate (Yessi-Hex 2%) 1 applic DAILY@1999 TOPIC 07/21/20 20:00 10/19/20 19:59 08/02/20 20:00 Clonidine HCl (Catapres Tab) 0.1 mg Q4H PRN NG bp over 165 syst 07/21/20 12:00 10/14/20 22:44 Dextrose (Dextrose 50%) 25 ml Q30M PRN IV Hypoglycemia 07/22/20 08:00 10/20/20 07:59 Dextrose (Dextrose 50%) 50 ml Q30M PRN IV Hypoglycemia 07/22/20 08:00 10/20/20 07:59 Docusate Sodium (Colace) 100 mg EVERY 8 HOURS NG 07/29/20 22:00 08/20/20 12:59 08/03/20 06:00 Epoetin Panchito (Epoetin Panchito(ESRD on dialysis)) 10,000 unit THU-THU-THU SUBQ 07/30/20 21:00 10/25/20 20:59 08/01/20 21:55 Haloperidol Lactate (Haldol) 5 mg Q6H PRN IM Agitation 07/17/20 17:30 08/31/20 17:29 08/01/20 12:13 Insulin Aspart (NovoLOG) Q6HR SUBQ 07/22/20 08:15 10/20/20 11:29 08/03/20 06:00 Insulin Detemir (Levemir) 12 units Q12HR SUBQ 07/24/20 09:00 10/20/20 09:59 08/01/20 21:57 Loperamide HCl (Imodium) 2 mg Q6H PRN NG Diarrhea 07/29/20 15:45 08/28/20 15:44 Lorazepam (Ativan 2mg/ml 1ml) 1 mg Q4H PRN IV For Anxiety 07/30/20 06:37 08/06/20 06:36 08/01/20 08:48 Metoprolol Tartrate (Lopressor) 25 mg EVERY 6 HOURS NG 07/26/20 12:00 10/24/20 11:59 08/03/20 06:00 Norepinephrine Bitartrate 250 ml @ 0 mls/hr Q24H IV 08/02/20 10:30 08/05/20 10:29 08/02/20 10:38 Pantoprazole (Protonix) 40 mg EVERY 12 HOURS IVP 07/21/20 21:00 08/20/20 20:59 08/02/20 21:31 Piperacillin Sod/ Tazobactam Sod 2.25 gm/Dextrose 55 ml @ 110 mls/hr Q8HR@0200,1000,1800 IV 07/28/20 18:00 08/04/20 17:59 08/03/20 02:00 Quetiapine Fumarate (SEROqueL) 50 mg Q12HR ORAL 07/30/20 21:00 09/13/20 20:59 08/02/20 21:32 Vitamin D (Vitamin D) 5,000 unit DAILY ORAL 07/29/20 09:00 08/28/20 08:59 08/01/20 08:44 Last 24 Hour Vital Signs Date Time Temp Pulse Resp B/P (MAP) Pulse Ox O2 Delivery O2 Flow Rate FiO2 08/03/20 06:00 92 16 124/46 (72) 99 08/03/20 06:00 91 122/80 08/03/20 05:30 95 19 121/47 (71) 98 08/03/20 05:00 110 16 115/61 (79) 97 08/03/20 04:30 107 18 137/49 (78) 99 08/03/20 04:00 103 08/03/20 04:00 99.0 121 25 123/44 (70) 97 08/03/20 04:00 40 08/03/20 04:00 Mechanical Ventilator 08/03/20 03:45 112 18 150/42 (78) 97 08/03/20 03:30 116 18 138/51 (80) 96 08/03/20 03:25 118 18 40 08/03/20 03:00 117 22 146/55 (85) 95 08/03/20 02:45 119 21 154/97 (116) 97 08/03/20 02:30 124 19 152/49 (83) 97 08/03/20 02:00 126 18 149/44 (79) 97 08/03/20 01:30 126 19 137/57 (83) 99 08/03/20 01:00 133 19 152/50 (84) 100 08/03/20 00:30 132 20 144/61 (88) 100 08/03/20 00:00 Mechanical Ventilator 08/03/20 00:00 40 08/03/20 00:00 103 08/03/20 00:00 130 100/54 08/03/20 00:00 100.0 139 21 89/31 (50) 100 08/02/20 23:45 128 22 89/31 (50) 100 08/02/20 23:30 130 22 83/42 (56) 98 08/02/20 23:15 127 22 164/52 (89) 100 08/02/20 23:06 105 17 40 08/02/20 23:00 107 17 88/46 (60) 100 08/02/20 22:45 102 14 85/36 (52) 100 08/02/20 22:30 105 19 92/36 (54) 99 08/02/20 22:15 112 16 103/47 (65) 99 08/02/20 22:00 118 19 126/46 (72) 99 08/02/20 21:45 128 19 143/59 (87) 100 08/02/20 21:30 119 19 143/53 (83) 100 08/02/20 21:15 115 18 140/45 (76) 100 08/02/20 21:00 120 20 134/53 (80) 100 08/02/20 20:45 118 20 131/45 (73) 100 08/02/20 20:30 115 20 134/71 (92) 100 08/02/20 20:00 Mechanical Ventilator 08/02/20 20:00 111 08/02/20 20:00 40 08/02/20 20:00 99.0 107 18 77/38 (51) 99 08/02/20 19:52 105 19 40 08/02/20 19:00 98 18 130/92 (105) 96 08/02/20 18:30 104 18 154/53 (86) 100 08/02/20 18:00 97 19 130/92 (105) 99 08/02/20 17:00 98 22 112/41 (64) 96 08/02/20 16:30 109 12 118/44 (68) 97 08/02/20 16:00 40 08/02/20 16:00 103 08/02/20 16:00 Mechanical Ventilator 08/02/20 16:00 99 19 127/47 (73) 100 08/02/20 15:30 98 23 127/44 (71) 100 08/02/20 15:00 104 17 167/62 (97) 100 08/02/20 14:30 95 16 147/49 (81) 100 08/02/20 14:30 98.7 08/02/20 14:00 93 12 117/42 (67) 100 08/02/20 13:30 95 22 114/44 (67) 100 08/02/20 13:25 106 17 40 08/02/20 13:00 95 17 105/48 (67) 100 08/02/20 12:30 95 19 87/37 (54) 100 08/02/20 12:00 60 08/02/20 12:00 97 19 170/47 (88) 100 08/02/20 12:00 Mechanical Ventilator 08/02/20 12:00 91 08/02/20 12:00 99.9 08/02/20 11:30 99 17 114/44 (67) 100 08/02/20 11:20 99.6 08/02/20 11:00 115 20 142/39 (73) 100 08/02/20 10:38 106/47 08/02/20 10:30 108 19 106/47 (66) 100 08/02/20 10:00 104 16 143/46 (78) 100 08/02/20 10:00 143/46 08/02/20 09:30 105 31 89/66 (74) 96 08/02/20 09:00 107 31 90/67 (75) 95 08/02/20 09:00 126/45 08/02/20 09:00 101.4 08/02/20 08:47 101.4 08/02/20 08:30 118 33 88/56 (67) 94 08/02/20 08:00 124 32 92/65 (74) 100 08/02/20 08:00 100.9 08/02/20 08:00 60 08/02/20 08:00 Mechanical Ventilator 08/02/20 08:00 102/61 08/02/20 08:00 103 08/02/20 07:45 140 21 60 08/02/20 07:45 89/37 12/31/20 07:30 82/38 08/02/20 07:15 87/35 08/02/20 07:15 107 19 110/39 (62) 100 08/02/20 07:12 107 21 89/37 (54) 99 08/02/20 07:00 96/50 08/02/20 07:00 100 18 82/38 (53) 100 08/02/20 06:45 104 20 95/37 (56) 100 08/02/20 06:30 107 19 114/43 (66) 100 08/02/20 06:15 112 19 138/45 (76) 98 08/02/20 06:00 136/80 08/02/20 06:00 113 98/36 08/02/20 06:00 108 16 141/46 (77) 99 08/02/20 05:45 104 19 137/44 (75) 100 08/02/20 05:31 Mechanical Ventilator 100 08/02/20 05:30 100 17 137/50 (79) 100 08/02/20 05:15 99 17 133/64 (87) 100 08/02/20 05:00 99 17 120/47 (71) 100 08/02/20 05:00 110/52 08/02/20 04:45 98 19 128/54 (78) 100 08/02/20 04:30 96 17 135/53 (80) 100 08/02/20 04:15 93 16 119/51 (73) 100 08/02/20 04:00 99.0 92 19 124/43 (70) 100 08/02/20 04:00 98 08/02/20 04:00 Mechanical Ventilator 08/02/20 04:00 117/47 08/02/20 04:00 80 08/02/20 03:55 Mechanical Ventilator 100 08/02/20 03:45 94 17 123/47 (72) 100 08/02/20 03:30 96 19 111/44 (66) 100 08/02/20 03:15 97 16 117/47 (70) 100 08/02/20 03:00 100 18 98/47 (64) 100 08/02/20 03:00 117/47 08/02/20 02:45 96 15 100/48 (65) 100 08/02/20 02:30 100 16 116/47 (70) 100 08/02/20 02:15 95 15 126/52 (76) 08/02/20 02:00 94 15 147/53 (84) 100 08/02/20 02:00 126/52 08/02/20 01:45 95 16 143/55 (84) 100 08/02/20 01:45 99 19 60 08/02/20 01:30 97 20 140/46 (77) 100 08/02/20 01:15 98 16 142/48 (79) 100 08/02/20 01:00 98 17 147/54 (85) 100 08/02/20 01:00 142/51 08/02/20 00:45 100 16 138/52 (80) 100 08/02/20 00:30 100 17 128/54 (78) 100 08/02/20 00:15 98 18 147/52 (83) 100 08/02/20 00:00 Mechanical Ventilator 08/02/20 00:00 98 08/02/20 00:00 81 92/56 08/02/20 00:00 80 08/02/20 00:00 100.0 99 20 140/50 (80) 100 08/01/20 23:45 96 18 155/47 (83) 100 08/01/20 23:35 97 20 151/50 (83) 100 08/01/20 23:30 98 18 102/50 (67) 100 08/01/20 23:00 96 20 109/43 (65) 100 08/01/20 22:55 92/37 08/01/20 22:30 94 21 90/40 (57) 100 08/01/20 22:00 101.0 99 17 77/37 (50) 100 08/01/20 21:30 103 18 94/40 (58) 100 08/01/20 21:14 101.0 08/01/20 21:00 110 19 89/37 (54) 100 08/01/20 20:30 107 18 92/36 (54) 100 08/01/20 20:12 112 18 60 08/01/20 20:00 Mechanical Ventilator 08/01/20 20:00 109 08/01/20 20:00 102.4 107 19 84/41 (55) 100 08/01/20 20:00 80 08/01/20 19:30 105 17 101/56 (71) 100 08/01/20 19:00 99 13 100/41 (60) 100 08/01/20 18:00 105 16 121/47 (71) 100 08/01/20 17:00 98 16 92/33 (52) 100 08/01/20 16:00 105 08/01/20 16:00 98.3 99 19 130/47 (74) 100 08/01/20 16:00 80 08/01/20 16:00 Mechanical Ventilator 08/01/20 15:30 111 19 80 08/01/20 15:00 92 15 140/55 (83) 100 08/01/20 14:00 85 17 93/50 (64) 100 08/01/20 13:00 82 17 129/52 (77) 100 08/01/20 12:14 98 128/50 08/01/20 12:00 97 22 128/50 (76) 100 08/01/20 12:00 Mechanical Ventilator 08/01/20 12:00 80 08/01/20 12:00 93 08/01/20 11:30 102 19 80 08/01/20 11:00 97 22 116/42 (66) 100 08/01/20 10:00 100.4 115 23 114/42 (66) 100 08/01/20 09:34 126 24 103/40 100 08/01/20 09:00 102.5 111 22 103/40 (61) 100 08/01/20 08:48 122 22 103/37 100 08/01/20 08:00 80 08/01/20 08:00 92 08/01/20 08:00 101.2 113 21 103/37 (59) 100 08/01/20 08:00 Mechanical Ventilator 08/01/20 07:30 113 23 80 08/01/20 07:00 110 17 95/34 (54) 100 08/01/20 07:00 118 27 92/47 (62) 100 Intake and Output 08/02/20 08/03/20 19:00 07:00 Intake Total 245.005 ml 56.25 ml Balance 245.005 ml 56.25 ml IV Total 245.005 ml 56.25 ml Tube Feeding 0 ml 0 ml Labs Test 07/31/20 12:30 07/31/20 13:02 07/31/20 18:08 07/31/20 21:07 POC Whole Blood Glucose 97 MG/DL (74-106) 97 MG/DL (74-106) 129 MG/DL (74-106) 223 MG/DL (74-106) Test 07/31/20 23:24 08/01/20 05:17 08/01/20 12:09 08/01/20 21:30 POC Whole Blood Glucose 303 MG/DL (74-106) 360 MG/DL (74-106) White Blood Count 12.5 K/UL (4.8-10.8) 16.7 K/UL (4.8-10.8) Red Blood Count 2.16 M/UL (4.20-5.40) 2.02 M/UL (4.20-5.40) Hemoglobin 7.0 G/DL (12.0-16.0) 6.8 G/DL (12.0-16.0) Hematocrit 22.0 % (37.0-47.0) 20.7 % (37.0-47.0) Mean Corpuscular Volume 102 FL (80-99) 102 FL (80-99) Mean Corpuscular Hemoglobin 32.5 PG (27.0-31.0) 33.8 PG (27.0-31.0) Mean Corpuscular Hemoglobin Concent 31.9 G/DL (32.0-36.0) 33.0 G/DL (32.0-36.0) Red Cell Distribution Width 18.2 % (11.6-14.8) 17.9 % (11.6-14.8) Platelet Count 146 K/UL (150-450) 161 K/UL (150-450) Mean Platelet Volume 8.7 FL (6.5-10.1) 7.5 FL (6.5-10.1) Neutrophils (%) (Auto) % (45.0-75.0) % (45.0-75.0) Lymphocytes (%) (Auto) % (20.0-45.0) % (20.0-45.0) Monocytes (%) (Auto) % (1.0-10.0) % (1.0-10.0) Eosinophils (%) (Auto) % (0.0-3.0) % (0.0-3.0) Basophils (%) (Auto) % (0.0-2.0) % (0.0-2.0) Differential Total Cells Counted 100 100 Neutrophils % (Manual) 97 % (45-75) 93 % (45-75) Lymphocytes % (Manual) 1 % (20-45) 1 % (20-45) Monocytes % (Manual) 2 % (1-10) 0 % (1-10) Eosinophils % (Manual) 0 % (0-3) 0 % (0-3) Basophils % (Manual) 0 % (0-2) 1 % (0-2) Band Neutrophils 0 % (0-8) 5 % (0-8) Platelet Estimate Decreased Adequate Platelet Morphology Normal Normal Anisocytosis 1+ 1+ Macrocytosis 1+ 2+ Sodium Level 139 MMOL/L (136-145) Potassium Level 4.2 MMOL/L (3.5-5.1) Chloride Level 97 MMOL/L (98-107) Carbon Dioxide Level 28 MMOL/L (21-32) Anion Gap 14 mmol/L (5-15) Blood Urea Nitrogen 97 mg/dL (7-18) Creatinine 5.6 MG/DL (0.55-1.30) Estimat Glomerular Filtration Rate 7.5 mL/min (>60) Glucose Level 409 MG/DL (74-106) Calcium Level 8.3 MG/DL (8.5-10.1) Phosphorus Level 5.7 MG/DL (2.5-4.9) Total Bilirubin 1.4 MG/DL (0.2-1.0) Direct Bilirubin 1.0 MG/DL (0.0-0.3) Aspartate Amino Transf (AST/SGOT) 137 U/L (15-37) Alanine Aminotransferase (ALT/SGPT) 36 U/L (12-78) Alkaline Phosphatase 302 U/L (46-116) C-Reactive Protein, Quantitative 31.8 mg/dL (0.00-0.90) Pro-B-Type Natriuretic Peptide > 89487 pg/mL (0-125) Total Protein 7.0 G/DL (6.4-8.2) Albumin 2.3 G/DL (3.4-5.0) Globulin 4.7 g/dL Albumin/Globulin Ratio 0.5 (1.0-2.7) Polychromasia 1+ Test 08/02/20 00:32 08/02/20 08:30 08/02/20 10:25 08/02/20 16:47 POC Whole Blood Glucose 147 MG/DL (74-106) 252 MG/DL (74-106) White Blood Count 18.3 K/UL (4.8-10.8) Red Blood Count 2.05 M/UL (4.20-5.40) Hemoglobin 6.7 G/DL (12.0-16.0) Hematocrit 20.9 % (37.0-47.0) Mean Corpuscular Volume 102 FL (80-99) Mean Corpuscular Hemoglobin 32.8 PG (27.0-31.0) Mean Corpuscular Hemoglobin Concent 32.1 G/DL (32.0-36.0) Red Cell Distribution Width 18.0 % (11.6-14.8) Platelet Count 189 K/UL (150-450) Mean Platelet Volume 8.1 FL (6.5-10.1) Neutrophils (%) (Auto) % (45.0-75.0) Lymphocytes (%) (Auto) % (20.0-45.0) Monocytes (%) (Auto) % (1.0-10.0) Eosinophils (%) (Auto) % (0.0-3.0) Basophils (%) (Auto) % (0.0-2.0) Differential Total Cells Counted 100 Neutrophils % (Manual) 91 % (45-75) Lymphocytes % (Manual) 2 % (20-45) Monocytes % (Manual) 1 % (1-10) Eosinophils % (Manual) 1 % (0-3) Basophils % (Manual) 0 % (0-2) Band Neutrophils 5 % (0-8) Platelet Estimate Adequate Platelet Morphology Normal Hypochromasia 1+ Anisocytosis 1+ Macrocytosis 1+ Sodium Level 140 MMOL/L (136-145) Potassium Level 3.4 MMOL/L (3.5-5.1) Chloride Level 98 MMOL/L (98-107) Carbon Dioxide Level 34 MMOL/L (21-32) Anion Gap 8 mmol/L (5-15) Blood Urea Nitrogen 44 mg/dL (7-18) Creatinine 2.9 MG/DL (0.55-1.30) Estimat Glomerular Filtration Rate 16.0 mL/min (>60) Glucose Level 200 MG/DL (74-106) Calcium Level 8.6 MG/DL (8.5-10.1) Phosphorus Level 3.9 MG/DL (2.5-4.9) Magnesium Level 1.8 MG/DL (1.8-2.4) Total Bilirubin 2.1 MG/DL (0.2-1.0) Direct Bilirubin 1.4 MG/DL (0.0-0.3) Aspartate Amino Transf (AST/SGOT) 44 U/L (15-37) Alanine Aminotransferase (ALT/SGPT) 27 U/L (12-78) Alkaline Phosphatase 219 U/L (46-116) C-Reactive Protein, Quantitative 35.0 mg/dL (0.00-0.90) Pro-B-Type Natriuretic Peptide > 32220 pg/mL (0-125) Total Protein 6.9 G/DL (6.4-8.2) Albumin 2.3 G/DL (3.4-5.0) Globulin 4.6 g/dL Albumin/Globulin Ratio 0.5 (1.0-2.7) Test 08/03/20 04:35 08/03/20 04:51 White Blood Count 24.4 K/UL (4.8-10.8) Red Blood Count 2.70 M/UL (4.20-5.40) Hemoglobin 10.2 G/DL (12.0-16.0) Hematocrit 27.1 % (37.0-47.0) Mean Corpuscular Volume 101 FL (80-99) Mean Corpuscular Hemoglobin 37.7 PG (27.0-31.0) Mean Corpuscular Hemoglobin Concent 37.5 G/DL (32.0-36.0) Red Cell Distribution Width 16.8 % (11.6-14.8) Platelet Count 167 K/UL (150-450) Mean Platelet Volume 8.7 FL (6.5-10.1) Neutrophils (%) (Auto) % (45.0-75.0) Lymphocytes (%) (Auto) % (20.0-45.0) Monocytes (%) (Auto) % (1.0-10.0) Eosinophils (%) (Auto) % (0.0-3.0) Basophils (%) (Auto) % (0.0-2.0) Uric Acid 4.8 MG/DL (2.6-7.2) Phosphorus Level 7.3 MG/DL (2.5-4.9) Magnesium Level 2.0 MG/DL (1.8-2.4) Troponin I 0.163 ng/mL (0.000-0.056) Pro-B-Type Natriuretic Peptide > 46494 pg/mL (0-125) POC Whole Blood Glucose 381 MG/DL (74-106) Height (Feet): 5 Height (Inches): 4.00 Weight (Pounds): 180 Objective Physical Exam General Appearance: alert, obese, Chronically Ill Neck: full range of motion Respiratory: wheezing Cardiovascular: edema Gastrointestinal: normal inspection, soft 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
--- NOTE | 2020-08-03 07:05 | NUR ---
RESPIRATORY NOTE: PT RECEIVED STABLE ON CMV WITH CURRENT SETTINGS: 16, 500, 40%, +10. ALARMS ARE ON AND AUDIBLE. VENT CIRCUIT IS SECURE AND OUT OF THE WAY. AIRWAY IS SECURE AND PATENT. NO S/S OF RESPIRATORY DISTRESS NOTED AT THIS TIME WILL CONTINUE TO CLOSELY MONITOR.
[2020-08-03 07:12] LABS: ALANINE AMINOTRANSFERASE 22 U/L (12-78); ALBUMIN 2.2 G/DL (3.4-5.0); ALBUMIN/GLOBULIN RATIO 0.4 (1.0-2.7); ALKALINE PHOSPHATASE 223 U/L (46-116); ASPARTATE AMINO TRANSFERASE 29 U/L (15-37); BILIRUBIN,TOTAL 2.3 MG/DL (0.2-1.0); BLOOD UREA NITROGEN 67 mg/dL (7-18); CARBON DIOXIDE 25 MMOL/L (21-32); CREATININE 3.9 MG/DL (0.55-1.30)
[2020-08-03 07:15] LABS: BILIRUBIN,DIRECT 1.6 MG/DL (0.0-0.3)
--- NOTE | 2020-08-03 07:20 | NUR ---
NURSE NOTES: Report received from SIDNEY Cazares. Patient is sleeping. Easily able to wake up. Opens eyes spontaneously. Unable to follow commands nor verbalize needs. Patient is impulsive and trying to reach ETT at times. Continued bilateral soft wrist restraints. Afib controlled on monitoring tech. ETT 7.5/24cm at lip line. AC 16, TV 500, FiO2 40%, P 10. O2 sat 96-100%. RR 20's. No heredia. Anuric. Rectal tube in place draining dark brown loose BM to gravity. SHAMEKA AV shunt for HD noted. Bruits and shrill heard. Right femoral TLC patent and asymptomatic. Bed in lowest position. Side rails up x3. Will resume plan of care.
[2020-08-03 07:45] LABS: CHLORIDE 94 MMOL/L (98-107); POTASSIUM 4.8 MMOL/L (3.5-5.1); SODIUM 137 MMOL/L (136-145)
--- NOTE | 2020-08-03 08:56 | Diagnostic Imaging Report ---
EXAM: XR Chest, 1 View CLINICAL HISTORY: INFECT TECHNIQUE: Frontal view of the chest. COMPARISON: 07/29/20 FINDINGS: Lungs: There has been improvement in mild to moderate diffuse bilateral alveolar infiltrates since the prior study. Pleural space: Unremarkable. No pneumothorax. Heart: Unremarkable. No cardiomegaly. Mediastinum: Unremarkable. Bones/joints: Unremarkable. Tubes, lines and devices: There is an endotracheal tube and NG tube in unchanged position. Other findings: There is unchanged cardia megaly. IMPRESSION: There has been improvement in mild to moderate diffuse bilateral alveolar infiltrates since the prior study.
[2020-08-03] MEDS: Pantoprazole Inj IVP SCH ×2 (09:04→21:15)
[2020-08-03] MEDS: Vitamin D 1000 units Tab ORAL SCH (09:10)
[2020-08-03] MEDS: Levemir Flexpen SUBQ SCH ×2 (09:35→21:22)
[2020-08-03] MEDS: Norepinephrine Premix 4mg/NS 250mL IV SCH ×2 (10:30→23:04)
--- NOTE | 2020-08-03 12:00 | NUR ---
NURSE NOTES: Started Nepro at 30cc/hr as per Dr Leonard's order. Applied SCDs. Turned and repositioned patient. HOB elevated. Will continue to monitor.
--- NOTE | 2020-08-03 13:01 | NUR ---
NURSE NOTES: Dr Maximino Briseno here to see the patient. Updated him with patient's current condition including elevated WBC and fever. No new orders for now.
--- NOTE | 2020-08-03 13:07 | Infectious Diseases Prog Note ---
Assessment/Plan Assessment/Plan IMPRESSION: COVID-19 disease, Altered mental status and encephalopathy, End-stage renal disease on hemodialysis, COPD, Asthma, Hypertension, Pancytopenia, Diabetes mellitus with hyperglycemia, Systolic heart failure, Aortic stenosis. Hypercapnic, hypoxemic respiratory failure GI bleeding Anemia Leukocytosis worsening RECOMMENDATION: Finished dexamethasone course Continue Zosyn & Vancomycin Will f/u culture Subjective ROS Limited/Unobtainable: Yes Neurologic: Reports: other - on restraint Allergies: Coded Allergies: No Known Allergies (Unverified , 05/12/17) Objective Last 24 Hour Vital Signs Date Time Temp Pulse Resp B/P (MAP) Pulse Ox O2 Delivery O2 Flow Rate FiO2 08/03/20 11:29 93 08/03/20 11:08 111 19 40 08/03/20 11:00 112 17 137/48 (77) 98 08/03/20 10:00 105 18 117/57 (77) 97 08/03/20 09:00 95 19 89/43 (58) 99 08/03/20 08:00 40 08/03/20 08:00 98.0 92 19 97/40 (59) 100 08/03/20 08:00 Mechanical Ventilator 08/03/20 07:48 90 08/03/20 07:00 92 16 106/48 (67) 100 08/03/20 06:00 92 16 124/46 (72) 99 08/03/20 06:00 91 122/80 08/03/20 05:30 95 19 121/47 (71) 98 08/03/20 05:00 110 16 115/61 (79) 97 08/03/20 04:30 107 18 137/49 (78) 99 08/03/20 04:00 103 08/03/20 04:00 99.0 121 25 123/44 (70) 97 08/03/20 04:00 40 08/03/20 04:00 Mechanical Ventilator 08/03/20 03:45 112 18 150/42 (78) 97 08/03/20 03:30 116 18 138/51 (80) 96 08/03/20 03:25 118 18 40 08/03/20 03:00 117 22 146/55 (85) 95 08/03/20 02:45 119 21 154/97 (116) 97 08/03/20 02:30 124 19 152/49 (83) 97 08/03/20 02:00 126 18 149/44 (79) 97 08/03/20 01:30 126 19 137/57 (83) 99 08/03/20 01:00 133 19 152/50 (84) 100 08/03/20 00:30 132 20 144/61 (88) 100 08/03/20 00:00 Mechanical Ventilator 08/03/20 00:00 40 08/03/20 00:00 103 08/03/20 00:00 130 100/54 08/03/20 00:00 100.0 139 21 89/31 (50) 100 08/02/20 23:45 128 22 89/31 (50) 100 08/02/20 23:30 130 22 83/42 (56) 98 08/02/20 23:15 127 22 164/52 (89) 100 08/02/20 23:06 105 17 40 08/02/20 23:00 107 17 88/46 (60) 100 08/02/20 22:45 102 14 85/36 (52) 100 08/02/20 22:30 105 19 92/36 (54) 99 08/02/20 22:15 112 16 103/47 (65) 99 08/02/20 22:00 118 19 126/46 (72) 99 08/02/20 21:45 128 19 143/59 (87) 100 08/02/20 21:30 119 19 143/53 (83) 100 08/02/20 21:15 115 18 140/45 (76) 100 08/02/20 21:00 120 20 134/53 (80) 100 08/02/20 20:45 118 20 131/45 (73) 100 08/02/20 20:30 115 20 134/71 (92) 100 08/02/20 20:00 Mechanical Ventilator 08/02/20 20:00 111 08/02/20 20:00 40 08/02/20 20:00 99.0 107 18 77/38 (51) 99 08/02/20 19:52 105 19 40 08/02/20 19:00 98 18 130/92 (105) 96 08/02/20 18:30 104 18 154/53 (86) 100 08/02/20 18:00 97 19 130/92 (105) 99 08/02/20 17:00 98 22 112/41 (64) 96 08/02/20 16:30 109 12 118/44 (68) 97 08/02/20 16:00 40 08/02/20 16:00 103 08/02/20 16:00 Mechanical Ventilator 08/02/20 16:00 99 19 127/47 (73) 100 08/02/20 15:30 98 23 127/44 (71) 100 08/02/20 15:00 104 17 167/62 (97) 100 08/02/20 14:30 95 16 147/49 (81) 100 08/02/20 14:30 98.7 08/02/20 14:00 93 12 117/42 (67) 100 08/02/20 13:30 95 22 114/44 (67) 100 08/02/20 13:25 106 17 40 Height (Feet): 5 Height (Inches): 4.00 Weight (Pounds): 180 HEENT: other - orally intubated Cardiovascular: normal rate Abdomen: soft, non tender, other - OG tube Extremities: no edema Neurologic/Psychiatric: unresponsiveness Microbiology Date/Time Source Procedure Growth Status 07/31/20 14:15 Blood Blood Culture - Preliminary NO GROWTH AFTER 48 HOURS Resulted 07/31/20 14:00 Blood Blood Culture - Preliminary NO GROWTH AFTER 48 HOURS Resulted Laboratory Tests Test 08/02/20 16:47 08/03/20 04:35 08/03/20 04:51 08/03/20 09:15 POC Whole Blood Glucose 252 MG/DL (74-106) H 381 MG/DL (74-106) H Pending White Blood Count 24.4 K/UL (4.8-10.8) *H Red Blood Count 2.70 M/UL (4.20-5.40) L Hemoglobin 10.2 G/DL (12.0-16.0) #L Hematocrit 27.1 % (37.0-47.0) L Mean Corpuscular Volume 101 FL (80-99) H Mean Corpuscular Hemoglobin 37.7 PG (27.0-31.0) H Mean Corpuscular Hemoglobin Concent 37.5 G/DL (32.0-36.0) H Red Cell Distribution Width 16.8 % (11.6-14.8) H Platelet Count 167 K/UL (150-450) Mean Platelet Volume 8.7 FL (6.5-10.1) Neutrophils (%) (Auto) % (45.0-75.0) Lymphocytes (%) (Auto) % (20.0-45.0) Monocytes (%) (Auto) % (1.0-10.0) Eosinophils (%) (Auto) % (0.0-3.0) Basophils (%) (Auto) % (0.0-2.0) Differential Total Cells Counted 100 Neutrophils % (Manual) 88 % (45-75) H Lymphocytes % (Manual) 1 % (20-45) L Monocytes % (Manual) 2 % (1-10) Eosinophils % (Manual) 2 % (0-3) Basophils % (Manual) 0 % (0-2) Band Neutrophils 7 % (0-8) Platelet Estimate Adequate Platelet Morphology Normal Hypochromasia Anisocytosis 1+ Macrocytosis 1+ Sodium Level 137 MMOL/L (136-145) Potassium Level 4.8 MMOL/L (3.5-5.1) Chloride Level 94 MMOL/L (98-107) L Carbon Dioxide Level 25 MMOL/L (21-32) Blood Urea Nitrogen 67 mg/dL (7-18) H Creatinine 3.9 MG/DL (0.55-1.30) H Estimat Glomerular Filtration Rate 11.4 mL/min (>60) Glucose Level 373 MG/DL (74-106) #H Uric Acid 4.8 MG/DL (2.6-7.2) Calcium Level 9.0 MG/DL (8.5-10.1) Phosphorus Level 7.3 MG/DL (2.5-4.9) H Magnesium Level 2.0 MG/DL (1.8-2.4) Total Bilirubin 2.3 MG/DL (0.2-1.0) H Direct Bilirubin 1.6 MG/DL (0.0-0.3) H Aspartate Amino Transf (AST/SGOT) 29 U/L (15-37) Alanine Aminotransferase (ALT/SGPT) 22 U/L (12-78) Alkaline Phosphatase 223 U/L (46-116) H Troponin I 0.163 ng/mL (0.000-0.056) C-Reactive Protein, Quantitative > 70.0 mg/dL (0.00-0.90) H Pro-B-Type Natriuretic Peptide > 62260 pg/mL (0-125) H Total Protein 7.1 G/DL (6.4-8.2) Albumin 2.2 G/DL (3.4-5.0) L Globulin 4.9 g/dL Albumin/Globulin Ratio 0.4 (1.0-2.7) L Vitamin D 25-Hydroxy Pending 25-Hydroxy Vitamin D2 Pending 25-Hydroxy Vitamin D3 Pending Current Medications Medications (Trade) Dose Ordered Sig/Toya Route PRN Reason Start Time Stop Time Status Last Admin Dose Admin Acetaminophen (Tylenol) 650 mg EVERY 6 HOURS PRN NG Mild Pain (Pain Scale 1-3) 07/29/20 09:05 08/28/20 09:04 08/01/20 20:44 Acetaminophen (Tylenol) 650 mg EVERY 6 HOURS PRN NG Temp >100.5 07/29/20 09:15 08/28/20 09:14 08/02/20 08:17 Chlorhexidine Gluconate (Yessi-Hex 2%) 1 applic DAILY@1999 TOPIC 07/21/20 20:00 10/19/20 19:59 08/02/20 20:00 Clonidine HCl (Catapres Tab) 0.1 mg Q4H PRN NG bp over 165 syst 07/21/20 12:00 10/14/20 22:44 Dextrose (Dextrose 50%) 25 ml Q30M PRN IV Hypoglycemia 07/22/20 08:00 10/20/20 07:59 Dextrose (Dextrose 50%) 50 ml Q30M PRN IV Hypoglycemia 07/22/20 08:00 10/20/20 07:59 Docusate Sodium (Colace) 100 mg EVERY 8 HOURS NG 07/29/20 22:00 08/20/20 12:59 08/03/20 06:00 Epoetin Panchito (Epoetin Panchito(ESRD on dialysis)) 10,000 unit THU-THU-THU SUBQ 07/30/20 21:00 10/25/20 20:59 08/01/20 21:55 Haloperidol Lactate (Haldol) 5 mg Q6H PRN IM Agitation 07/17/20 17:30 08/31/20 17:29 08/01/20 12:13 Insulin Aspart (NovoLOG) Q6HR SUBQ 07/22/20 08:15 10/20/20 11:29 08/03/20 12:09 Insulin Detemir (Levemir) 12 units Q12HR SUBQ 07/24/20 09:00 10/20/20 09:59 08/03/20 09:35 Loperamide HCl (Imodium) 2 mg Q6H PRN NG Diarrhea 07/29/20 15:45 08/28/20 15:44 Lorazepam (Ativan 2mg/ml 1ml) 1 mg Q4H PRN IV For Anxiety 07/30/20 06:37 08/06/20 06:36 08/01/20 08:48 Metoprolol Tartrate (Lopressor) 25 mg EVERY 6 HOURS NG 07/26/20 12:00 10/24/20 11:59 08/03/20 06:00 Norepinephrine Bitartrate 250 ml @ 0 mls/hr Q24H IV 08/02/20 10:30 08/05/20 10:29 08/02/20 10:38 Pantoprazole (Protonix) 40 mg EVERY 12 HOURS IVP 07/21/20 21:00 08/20/20 20:59 08/03/20 09:04 Piperacillin Sod/ Tazobactam Sod 2.25 gm/Dextrose 55 ml @ 110 mls/hr Q8HR@0200,1000,1800 IV 08/03/20 10:00 08/10/20 09:59 08/03/20 09:04 Quetiapine Fumarate (SEROqueL) 50 mg Q12HR ORAL 07/30/20 21:00 09/13/20 20:59 08/03/20 09:04 Vitamin D (Vitamin D) 5,000 unit DAILY ORAL 07/29/20 09:00 08/28/20 08:59 08/03/20 09:10 Kalin Briseno MD Aug 03, 2020 13:07
--- NOTE | 2020-08-03 13:31 | NUR ---
NURSE NOTES: Ermelinda Randolph PA of Dr Allen here to see the patient. Updated him with patient's current condition. Awaiting new orders to be entered.
--- NOTE | 2020-08-03 14:20 | Pulmonology Progress Note ---
Subjective ROS Limited/Unobtainable: Yes Interval Events: Undergoing daily HD Constitutional: Reports: fever, other - Aung=569.4 HEENT: Repors: no symptoms Respiratory: Reports: no symptoms Cardiovascular: Reports: no symptoms Gastrointestinal/Abdominal: Reports: other - rectal bleeding Genitourinary: Reports: no symptoms Allergies: Coded Allergies: No Known Allergies (Unverified , 05/12/17) All Systems: reviewed and negative except above Objective Last 24 Hour Vital Signs Date Time Temp Pulse Resp B/P (MAP) Pulse Ox O2 Delivery O2 Flow Rate FiO2 08/03/20 13:00 98.5 111 18 110/53 (72) 98 08/03/20 12:00 96 17 90/40 (57) 99 08/03/20 12:00 Mechanical Ventilator 08/03/20 12:00 40 08/03/20 11:29 93 08/03/20 11:08 111 19 40 08/03/20 11:00 112 17 137/48 (77) 98 08/03/20 10:00 105 18 117/57 (77) 97 08/03/20 09:00 95 19 89/43 (58) 99 08/03/20 08:00 40 08/03/20 08:00 98.0 92 19 97/40 (59) 100 08/03/20 08:00 Mechanical Ventilator 08/03/20 07:48 90 08/03/20 07:00 92 16 106/48 (67) 100 08/03/20 06:00 92 16 124/46 (72) 99 08/03/20 06:00 91 122/80 08/03/20 05:30 95 19 121/47 (71) 98 08/03/20 05:00 110 16 115/61 (79) 97 08/03/20 04:30 107 18 137/49 (78) 99 08/03/20 04:00 103 08/03/20 04:00 99.0 121 25 123/44 (70) 97 08/03/20 04:00 40 08/03/20 04:00 Mechanical Ventilator 08/03/20 03:45 112 18 150/42 (78) 97 08/03/20 03:30 116 18 138/51 (80) 96 08/03/20 03:25 118 18 40 08/03/20 03:00 117 22 146/55 (85) 95 08/03/20 02:45 119 21 154/97 (116) 97 08/03/20 02:30 124 19 152/49 (83) 97 08/03/20 02:00 126 18 149/44 (79) 97 08/03/20 01:30 126 19 137/57 (83) 99 08/03/20 01:00 133 19 152/50 (84) 100 08/03/20 00:30 132 20 144/61 (88) 100 08/03/20 00:00 Mechanical Ventilator 08/03/20 00:00 40 08/03/20 00:00 103 08/03/20 00:00 130 100/54 08/03/20 00:00 100.0 139 21 89/31 (50) 100 08/02/20 23:45 128 22 89/31 (50) 100 08/02/20 23:30 130 22 83/42 (56) 98 08/02/20 23:15 127 22 164/52 (89) 100 08/02/20 23:06 105 17 40 08/02/20 23:00 107 17 88/46 (60) 100 08/02/20 22:45 102 14 85/36 (52) 100 08/02/20 22:30 105 19 92/36 (54) 99 08/02/20 22:15 112 16 103/47 (65) 99 08/02/20 22:00 118 19 126/46 (72) 99 08/02/20 21:45 128 19 143/59 (87) 100 08/02/20 21:30 119 19 143/53 (83) 100 08/02/20 21:15 115 18 140/45 (76) 100 08/02/20 21:00 120 20 134/53 (80) 100 08/02/20 20:45 118 20 131/45 (73) 100 08/02/20 20:30 115 20 134/71 (92) 100 08/02/20 20:00 Mechanical Ventilator 08/02/20 20:00 111 08/02/20 20:00 40 08/02/20 20:00 99.0 107 18 77/38 (51) 99 08/02/20 19:52 105 19 40 08/02/20 19:00 98 18 130/92 (105) 96 08/02/20 18:30 104 18 154/53 (86) 100 08/02/20 18:00 97 19 130/92 (105) 99 08/02/20 17:00 98 22 112/41 (64) 96 08/02/20 16:30 109 12 118/44 (68) 97 08/02/20 16:00 40 08/02/20 16:00 103 08/02/20 16:00 Mechanical Ventilator 08/02/20 16:00 99 19 127/47 (73) 100 08/02/20 15:30 98 23 127/44 (71) 100 08/02/20 15:00 104 17 167/62 (97) 100 08/02/20 14:30 95 16 147/49 (81) 100 08/02/20 14:30 98.7 Intake and Output 08/02/20 08/03/20 19:00 07:00 Intake Total 245.005 ml 126.25 ml Balance 245.005 ml 126.25 ml IV Total 245.005 ml 126.25 ml Tube Feeding 0 ml 0 ml Objective saturating well on current vent setting 07/21 now in ICU; s/p intubation, NG tube 07/20 now on 15 L NRB mask; ICU transfer pending 07/19/2020 saturating well on 3 lpm NC 07/18/2020 saturating well on 3 lpm NC General Appearance: WD/WN, no acute distress, other - intubation HEENT: normocephalic Respiratory: chest wall non-tender, crackles/rales Cardiovascular: normal rate, regular rhythm Laboratory Tests 08/02/20 16:47: POC Whole Blood Glucose 252H 08/03/20 04:35: White Blood Count 24.4*H, Red Blood Count 2.70L, Hemoglobin 10.2#L, Hematocrit 27.1L, Mean Corpuscular Volume 101H, Mean Corpuscular Hemoglobin 37.7H, Mean Corpuscular Hemoglobin Concent 37.5H, Red Cell Distribution Width 16.8H, Plate let Count 167, Mean Platelet Volume 8.7, Neutrophils (%) (Auto) , Lymphocytes (%) (Auto) , Monocytes (%) (Auto) , Eosinophils (%) (Auto) , Basophils (%) (Auto) , Differential Total Cells Counted 100, Neutrophils % (Manual) 88H, Lymphocytes % (Manual) 1L, Monocytes % (Manual) 2, Eosinophils % (Manual) 2, Basophils % (Manual) 0, Band Neutrophils 7, Platelet Estimate Adequate, Platelet Morphology Normal, Hypochromasia , Anisocytosis 1+, Macrocytosis 1+, Sodium Level 137, Potassium Level 4.8, Chloride Level 94L, Carbon Dioxide Level 25, Blood Urea Nitrogen 67H, Creatinine 3.9H, Estimat Glomerular Filtration Rate 11.4, Glucose Level 373#H, Uric Acid 4.8, Calcium Level 9.0, Phosphorus Level 7.3H, Magnesium Level 2.0, Total Bilirubin 2.3H, Direct Bilirubin 1.6H, Aspartate Amino Transf (AST/SGOT) 29, Alanine Aminotransferase (ALT/SGPT) 22, Alkaline Phosphatase 223H, Troponin I 0.163H, C-Reactive Protein, Quantitative > 70.0H, Pro-B-Type Natriuretic Peptide > 77284L, Total Protein 7.1, Albumin 2.2L, Globulin 4.9, Albumin/Globulin Ratio 0.4L, Vitamin D 25-Hydroxy [Pending], 25- Hydroxy Vitamin D2 [Pending], 25-Hydroxy Vitamin D3 [Pending] 08/03/20 04:51: POC Whole Blood Glucose 381H 08/03/20 09:15: POC Whole Blood Glucose [Pending] Current Medications Medications (Trade) Dose Ordered Sig/Toya Route PRN Reason Start Time Stop Time Status Last Admin Dose Admin Acetaminophen (Tylenol) 650 mg EVERY 6 HOURS PRN NG Mild Pain (Pain Scale 1-3) 07/29/20 09:05 08/28/20 09:04 08/01/20 20:44 Acetaminophen (Tylenol) 650 mg EVERY 6 HOURS PRN NG Temp >100.5 07/29/20 09:15 08/28/20 09:14 08/02/20 08:17 Chlorhexidine Gluconate (Yessi-Hex 2%) 1 applic DAILY@1999 TOPIC 07/21/20 20:00 10/19/20 19:59 08/02/20 20:00 Clonidine HCl (Catapres Tab) 0.1 mg Q4H PRN NG bp over 165 syst 07/21/20 12:00 10/14/20 22:44 Dextrose (Dextrose 50%) 25 ml Q30M PRN IV Hypoglycemia 07/22/20 08:00 10/20/20 07:59 Dextrose (Dextrose 50%) 50 ml Q30M PRN IV Hypoglycemia 07/22/20 08:00 10/20/20 07:59 Docusate Sodium (Colace) 100 mg EVERY 8 HOURS NG 07/29/20 22:00 08/20/20 12:59 08/03/20 06:00 Epoetin Panchito (Epoetin Panchito(ESRD on dialysis)) 10,000 unit SUBQ 07/30/20 21:00 10/25/20 20:59 08/01/20 21:55 Haloperidol Lactate (Haldol) 5 mg Q6H PRN IM Agitation 07/17/20 17:30 08/31/20 17:29 08/01/20 12:13 Insulin Aspart (NovoLOG) Q6HR SUBQ 07/22/20 08:15 10/20/20 11:29 08/03/20 12:09 Insulin Detemir (Levemir) 12 units Q12HR SUBQ 07/24/20 09:00 10/20/20 09:59 08/03/20 09:35 Loperamide HCl (Imodium) 2 mg Q6H PRN NG Diarrhea 07/29/20 15:45 08/28/20 15:44 Lorazepam (Ativan 2mg/ml 1ml) 1 mg Q4H PRN IV For Anxiety 07/30/20 06:37 08/06/20 06:36 08/01/20 08:48 Metoprolol Tartrate (Lopressor) 25 mg EVERY 6 HOURS NG 07/26/20 12:00 10/24/20 11:59 08/03/20 06:00 Norepinephrine Bitartrate 250 ml @ 0 mls/hr Q24H IV 08/02/20 10:30 08/05/20 10:29 08/02/20 10:38 Pantoprazole (Protonix) 40 mg EVERY 12 HOURS IVP 07/21/20 21:00 08/20/20 20:59 08/03/20 09:04 Piperacillin Sod/ Tazobactam Sod 2.25 gm/Dextrose 55 ml @ 110 mls/hr Q8HR@0200,1000,1800 IV 08/03/20 10:00 08/10/20 09:59 08/03/20 09:04 Quetiapine Fumarate (SEROqueL) 50 mg Q12HR ORAL 07/30/20 21:00 09/13/20 20:59 1/1/21 09:04 Vitamin D (Vitamin D) 5,000 unit DAILY ORAL 07/29/20 09:00 08/28/20 08:59 08/03/20 09:10 Assessment/Plan Assessment/Plan 1. COVID-19 pneumonia. - on Abx 2. COPD 3. Pneumonia 4. Hypertensive emergency. 5. Leukocytosis. 6. Anemia. 7. Hyponatremia. 8. Hyperkalemia. 9. Hypochloridemia. 10. Hyperglycemia. 11. ESRD, on dialysis. 12. Respiratory failure; now intubated PLAN Continue O2; currently 80% Vent; AC mode On PEEP now 10 Agree with daily HD Saturations better FiO2 now 40% (was 60%) Noted rectal bleeding -> s/p PRBC Transfusions in place CXR 08/03 improvement in mild to moderate diffuse bilateral alveolar infiltrates since the prior study Discussed with Dr Falk Will attempt wean when FiO2 and PEEP are lower Agustín Wadsworth Aug 03, 2020 14:20 Levy Allen MD Aug 03, 2020 15:41
--- NOTE | 2020-08-03 15:00 | NUR ---
NURSE NOTES: Cleaned patient for small amount of leaked dark green loose BM. Rectal tube in place draining to gravity. Patient is on cooling blanket. Rectal temp 97.8. BP stable without Levophed. Will continue to monitor.
--- NOTE | 2020-08-03 15:10 | Cardiac Electrophysiology PN ---
Assessment/Plan Assessment/Plan 1. Accelerated HTN. Now on Lopressor 25 po q 6hr and p.r.n.clonidine. EF 40- 45% 2. Atrial fib with RVR with HR up to 150s. On Lopressor 25 q 6 hr 3. ESRD, on hemodialysis. 4. Hyponatremia, sodium 129. Fluid restriction per Dr. Falk. 5. Volume overload, BNP of more than 35,000 and EF 40-45%. On HD 6. Covid PNA and resp failure on the Vent with 80% Fio2 and PEEP 15 Covid positive 07/11 and 07/17 7. Rectal bleeding. S/P PRBC . FU Gi DW RN Subjective Subjective Confused in restraints. In Covid isolation. Intubated on 40% Fio2 and PEEP 10 and had HD with 500cc yesterday Now HR 90s in atrial fib on Lopressor.S/P PRBC for rectal bleeding Objective Last 24 Hour Vital Signs Date Time Temp Pulse Resp B/P (MAP) Pulse Ox O2 Delivery O2 Flow Rate FiO2 08/03/20 14:52 104 18 40 08/03/20 13:00 98.5 111 18 110/53 (72) 98 08/03/20 12:00 96 17 90/40 (57) 99 08/03/20 12:00 Mechanical Ventilator 08/03/20 12:00 40 08/03/20 11:29 93 08/03/20 11:08 111 19 40 08/03/20 11:00 112 17 137/48 (77) 98 08/03/20 10:00 105 18 117/57 (77) 97 08/03/20 09:00 95 19 89/43 (58) 99 08/03/20 08:00 40 08/03/20 08:00 98.0 92 19 97/40 (59) 100 08/03/20 08:00 Mechanical Ventilator 08/03/20 07:48 90 08/03/20 07:05 96 19 40 08/03/20 07:00 92 16 106/48 (67) 100 08/03/20 06:00 92 16 124/46 (72) 99 08/03/20 06:00 91 122/80 08/03/20 05:30 95 19 121/47 (71) 98 08/03/20 05:00 110 16 115/61 (79) 97 08/03/20 04:30 107 18 137/49 (78) 99 08/03/20 04:00 103 08/03/20 04:00 99.0 121 25 123/44 (70) 97 08/03/20 04:00 40 08/03/20 04:00 Mechanical Ventilator 08/03/20 03:45 112 18 150/42 (78) 97 08/03/20 03:30 116 18 138/51 (80) 96 08/03/20 03:25 118 18 40 08/03/20 03:00 117 22 146/55 (85) 95 08/03/20 02:45 119 21 154/97 (116) 97 08/03/20 02:30 124 19 152/49 (83) 97 08/03/20 02:00 126 18 149/44 (79) 97 08/03/20 01:30 126 19 137/57 (83) 99 08/03/20 01:00 133 19 152/50 (84) 100 08/03/20 00:30 132 20 144/61 (88) 100 08/03/20 00:00 Mechanical Ventilator 08/03/20 00:00 40 08/03/20 00:00 103 08/03/20 00:00 130 100/54 08/03/20 00:00 100.0 139 21 89/31 (50) 100 08/02/20 23:45 128 22 89/31 (50) 100 08/02/20 23:30 130 22 83/42 (56) 98 08/02/20 23:15 127 22 164/52 (89) 100 08/02/20 23:06 105 17 40 08/02/20 23:00 107 17 88/46 (60) 100 08/02/20 22:45 102 14 85/36 (52) 100 08/02/20 22:30 105 19 92/36 (54) 99 08/02/20 22:15 112 16 103/47 (65) 99 08/02/20 22:00 118 19 126/46 (72) 99 08/02/20 21:45 128 19 143/59 (87) 100 08/02/20 21:30 119 19 143/53 (83) 100 08/02/20 21:15 115 18 140/45 (76) 100 08/02/20 21:00 120 20 134/53 (80) 100 08/02/20 20:45 118 20 131/45 (73) 100 08/02/20 20:30 115 20 134/71 (92) 100 08/02/20 20:00 Mechanical Ventilator 08/02/20 20:00 111 08/02/20 20:00 40 08/02/20 20:00 99.0 107 18 77/38 (51) 99 08/02/20 19:52 105 19 40 08/02/20 19:00 98 18 130/92 (105) 96 08/02/20 18:30 104 18 154/53 (86) 100 08/02/20 18:00 97 19 130/92 (105) 99 08/02/20 17:00 98 22 112/41 (64) 96 08/02/20 16:30 109 12 118/44 (68) 97 08/02/20 16:00 40 08/02/20 16:00 103 08/02/20 16:00 Mechanical Ventilator 08/02/20 16:00 99 19 127/47 (73) 100 08/02/20 15:30 98 23 127/44 (71) 100 Intake and Output 08/02/20 08/03/20 19:00 07:00 Intake Total 245.005 ml 126.25 ml Balance 245.005 ml 126.25 ml IV Total 245.005 ml 126.25 ml Tube Feeding 0 ml 0 ml Laboratory Tests Test 08/02/20 16:47 08/03/20 04:35 08/03/20 04:51 08/03/20 09:15 POC Whole Blood Glucose 252 MG/DL (74-106) H 381 MG/DL (74-106) H Pending White Blood Count 24.4 K/UL (4.8-10.8) *H Red Blood Count 2.70 M/UL (4.20-5.40) L Hemoglobin 10.2 G/DL (12.0-16.0) #L Hematocrit 27.1 % (37.0-47.0) L Mean Corpuscular Volume 101 FL (80-99) H Mean Corpuscular Hemoglobin 37.7 PG (27.0-31.0) H Mean Corpuscular Hemoglobin Concent 37.5 G/DL (32.0-36.0) H Red Cell Distribution Width 16.8 % (11.6-14.8) H Platelet Count 167 K/UL (150-450) Mean Platelet Volume 8.7 FL (6.5-10.1) Neutrophils (%) (Auto) % (45.0-75.0) Lymphocytes (%) (Auto) % (20.0-45.0) Monocytes (%) (Auto) % (1.0-10.0) Eosinophils (%) (Auto) % (0.0-3.0) Basophils (%) (Auto) % (0.0-2.0) Differential Total Cells Counted 100 Neutrophils % (Manual) 88 % (45-75) H Lymphocytes % (Manual) 1 % (20-45) L Monocytes % (Manual) 2 % (1-10) Eosinophils % (Manual) 2 % (0-3) Basophils % (Manual) 0 % (0-2) Band Neutrophils 7 % (0-8) Platelet Estimate Adequate Platelet Morphology Normal Hypochromasia Anisocytosis 1+ Macrocytosis 1+ Sodium Level 137 MMOL/L (136-145) Potassium Level 4.8 MMOL/L (3.5-5.1) Chloride Level 94 MMOL/L (98-107) L Carbon Dioxide Level 25 MMOL/L (21-32) Blood Urea Nitrogen 67 mg/dL (7-18) H Creatinine 3.9 MG/DL (0.55-1.30) H Estimat Glomerular Filtration Rate 11.4 mL/min (>60) Glucose Level 373 MG/DL (74-106) #H Uric Acid 4.8 MG/DL (2.6-7.2) Calcium Level 9.0 MG/DL (8.5-10.1) Phosphorus Level 7.3 MG/DL (2.5-4.9) H Magnesium Level 2.0 MG/DL (1.8-2.4) Total Bilirubin 2.3 MG/DL (0.2-1.0) H Direct Bilirubin 1.6 MG/DL (0.0-0.3) H Aspartate Amino Transf (AST/SGOT) 29 U/L (15-37) Alanine Aminotransferase (ALT/SGPT) 22 U/L (12-78) Alkaline Phosphatase 223 U/L (46-116) H Troponin I 0.163 ng/mL (0.000-0.056) C-Reactive Protein, Quantitative > 70.0 mg/dL (0.00-0.90) H Pro-B-Type Natriuretic Peptide > 32108 pg/mL (0-125) H Total Protein 7.1 G/DL (6.4-8.2) Albumin 2.2 G/DL (3.4-5.0) L Globulin 4.9 g/dL Albumin/Globulin Ratio 0.4 (1.0-2.7) L Vitamin D 25-Hydroxy Pending 25-Hydroxy Vitamin D2 Pending 25-Hydroxy Vitamin D3 Pending Objective HEAD AND NECK: Orally intubated LUNGS: Coarse rhonchi. CARDIOVASCULAR: Regular S1 and S2 with no gallop or murmur. ABDOMEN: Soft. EXTREMITIES: No pitting edema. Zev Gatica MD Aug 03, 2020 15:10
--- NOTE | 2020-08-03 16:23 | Nephrology Progress Note ---
Assessment/Plan Problem List: (1) Hypertensive kidney disease (2) ESRD (end stage renal disease) (3) Hyperkalemia (4) Suspected 2019 novel coronavirus infection (5) Acute respiratory failure Assessment 70-year-old female with end-stage renal disease Presented with volume overload and hyperkalemia Suspected COVID-19 virus infection Hypertensive emergency Diabetes mellitus CHF Plan August 03: Patient remains intubated on ventilator. Transfused yesterday. Leukocytosis worsened. Blood pressure 90 systolic. Will start on midodrine. Continue per consultants. Check lab tomorrow. August 02: Discussed with RN. Patient due for transfusion due to rectal bleed. No dialysis scheduled today. Optimize cardiac and pulmonary status. Dialysis as needed. August 01: Discussed with RN. Patient had dry ultrafiltration yesterday. Patient will have dialysis and ultrafiltration today. Labs reviewed. Continue per consultants. July 31: Discussed with RN. Discussed with rack washer. Chest x-ray still looks wet. Despite of having been dialyzed yesterday we arrange for dialysis and ultrafiltration today and probably tomorrow. Labs reviewed. Per orders. July 30: Patient on dialysis now. Tolerating well. Labs and medications reviewed. Continue per consultants. Hemoglobin mid sevens. On 10,000 units of Epogen. Transfusion if needed. July 29: Dialyzed yesterday. Due for dialysis tomorrow. Labs reviewed. Iron panel ordered. Epogen dose increased. Continue per consultants. Vitamin D level pending July 28: Patient is about to get started on dialysis. Labs reviewed. Blood pressure 90 to 100 systolic. Continue per consultants. July 27: Patient dialyzed July 26. Labs reviewed. Status quo. Dialysis again in a.m. July 26: Patient was dialyzed this morning. Labs reviewed. Remains intuba dominik on ventilator. Full code. Tachycardic. Continue per consultants. Per orders. July 25: Patient was dialyzed yesterday. 2 L ultrafiltrate it. Discussed with accredited pharmacy technician today. Attempts at weaning is being tried. Patient will be dialyzed again tomorrow. In view of ejection fraction of 40 to 45% and low blood pressure will adjust the blood pressure medication dosages and give 0.25 mg digoxin IV once. Continue to monitor renal parameters. July 24: Due for dialysis today. Labs reviewed. Low phosphorus replaced. Continue pulmonary support and ID management. Medication list reviewed. BP medication adjusted. July 23: Dialyzed yesterday. Labs reviewed. ABG noted. Patient hypoxic. Vent setting adjusted by accredited pharmacy technician. Continue current care. Dialysis tomorrow. July 22: Patient on ventilator requiring positive end expiratory pressure. Labs reviewed. Blood sugar elevated. Levemir insulin ordered. Dialysis today. Continue per consultants. July 21: Patient now in ICU. Intubated on ventilator. Was dialyzed. Blood pressure well maintained. Has NG tube. Will start medication through NG tube and start feeding. Continue per consultants. Hemodialysis as needed. July 20: Patient seen and examined. Discussed with RN. Remains encephalopathic. Poor ABG results. Patient at high risk at this stage. We will transfer patients to ICU for possible airway support. Patient due for dialysis today. Hyperkalemia probably secondary to acidosis. Will arrange for NG tube insertion and give medication through NG tube. July 19: Mental status appears slightly improved. Was dialyzed 2 days in a row. Blood pressure medication adjusted. Next dialysis tomorrow. Continue per consultants. July 18: Patient encephalopathic, was dialyzed yesterday and had 3 L removed. Will order dialysis again today. Continue per ID. Blood pressure medication adjusted. July 17: Stat hemodialysis ordered. Kayexalate for high potassium. Pulmonary support with oxygen or BiPAP as needed Blood pressure support with proper parameters Per orders Subjective ROS Limited/Unobtainable: Yes Objective Objective Last 24 Hour Vital Signs Date Time Temp Pulse Resp B/P (MAP) Pulse Ox O2 Delivery O2 Flow Rate FiO2 08/03/20 14:52 104 18 40 08/03/20 13:00 98.5 111 18 110/53 (72) 98 08/03/20 12:00 96 17 90/40 (57) 99 08/03/20 12:00 Mechanical Ventilator 08/03/20 12:00 40 08/03/20 11:29 93 08/03/20 11:08 111 19 40 08/03/20 11:00 112 17 137/48 (77) 98 08/03/20 10:00 105 18 117/57 (77) 97 08/03/20 09:00 95 19 89/43 (58) 99 08/03/20 08:00 40 08/03/20 08:00 98.0 92 19 97/40 (59) 100 08/03/20 08:00 Mechanical Ventilator 08/03/20 07:48 90 08/03/20 07:05 96 19 40 08/03/20 07:00 92 16 106/48 (67) 100 08/03/20 06:00 92 16 124/46 (72) 99 08/03/20 06:00 91 122/80 08/03/20 05:30 95 19 121/47 (71) 98 08/03/20 05:00 110 16 115/61 (79) 97 08/03/20 04:30 107 18 137/49 (78) 99 08/03/20 04:00 103 08/03/20 04:00 99.0 121 25 123/44 (70) 97 08/03/20 04:00 40 08/03/20 04:00 Mechanical Ventilator 08/03/20 03:45 112 18 150/42 (78) 97 08/03/20 03:30 116 18 138/51 (80) 96 08/03/20 03:25 118 18 40 08/03/20 03:00 117 22 146/55 (85) 95 08/03/20 02:45 119 21 154/97 (116) 97 08/03/20 02:30 124 19 152/49 (83) 97 08/03/20 02:00 126 18 149/44 (79) 97 08/03/20 01:30 126 19 137/57 (83) 99 08/03/20 01:00 133 19 152/50 (84) 100 08/03/20 00:30 132 20 144/61 (88) 100 08/03/20 00:00 Mechanical Ventilator 08/03/20 00:00 40 08/03/20 00:00 103 08/03/20 00:00 130 100/54 08/03/20 00:00 100.0 139 21 89/31 (50) 100 08/02/20 23:45 128 22 89/31 (50) 100 08/02/20 23:30 130 22 83/42 (56) 98 08/02/20 23:15 127 22 164/52 (89) 100 08/02/20 23:06 105 17 40 08/02/20 23:00 107 17 88/46 (60) 100 08/02/20 22:45 102 14 85/36 (52) 100 08/02/20 22:30 105 19 92/36 (54) 99 08/02/20 22:15 112 16 103/47 (65) 99 08/02/20 22:00 118 19 126/46 (72) 99 08/02/20 21:45 128 19 143/59 (87) 100 08/02/20 21:30 119 19 143/53 (83) 100 08/02/20 21:15 115 18 140/45 (76) 100 08/02/20 21:00 120 20 134/53 (80) 100 08/02/20 20:45 118 20 131/45 (73) 100 08/02/20 20:30 115 20 134/71 (92) 100 08/02/20 20:00 Mechanical Ventilator 08/02/20 20:00 111 08/02/20 20:00 40 08/02/20 20:00 99.0 107 18 77/38 (51) 99 08/02/20 19:52 105 19 40 08/02/20 19:00 98 18 130/92 (105) 96 08/02/20 18:30 104 18 154/53 (86) 100 08/02/20 18:00 97 19 130/92 (105) 99 08/02/20 17:00 98 22 112/41 (64) 96 08/02/20 16:30 109 12 118/44 (68) 97 Intake and Output 08/02/20 08/03/20 19:00 07:00 Intake Total 245.005 ml 126.25 ml Balance 245.005 ml 126.25 ml IV Total 245.005 ml 126.25 ml Tube Feeding 0 ml 0 ml Laboratory Tests 08/02/20 16:47: POC Whole Blood Glucose 252H 08/03/20 04:35: White Blood Count 24.4*H, Red Blood Count 2.70L, Hemoglobin 10.2#L, Hematocrit 27.1L, Mean Corpuscular Volume 101H, Mean Corpuscular Hemoglobin 37.7H, Mean Corpuscular Hemoglobin Concent 37.5H, Red Cell Distribution Width 16.8H, Platelet Count 167, Mean Platelet Volume 8.7, Neutrophils (%) (Auto) , Lymphoc ytes (%) (Auto) , Monocytes (%) (Auto) , Eosinophils (%) (Auto) , Basophils (%) (Auto) , Differential Total Cells Counted 100, Neutrophils % (Manual) 88H, Lymphocytes % (Manual) 1L, Monocytes % (Manual) 2, Eosinophils % (Manual) 2, Basophils % (Manual) 0, Band Neutrophils 7, Platelet Estimate Adequate, Platelet Morphology Normal, Hypochromasia , Anisocytosis 1+, Macrocytosis 1+, Sodium Level 137, Potassium Level 4.8, Chloride Level 94L, Carbon Dioxide Level 25, Blood Urea Nitrogen 67H, Creatinine 3.9H, Estimat Glomerular Filtration Rate 11.4, Glucose Level 373#H, Uric Acid 4.8, Calcium Level 9.0, Phosphorus Level 7.3H, Magnesium Level 2.0, Total Bilirubin 2.3H, Direct Bilirubin 1.6H, Aspartate Amino Transf (AST/SGOT) 29, Alanine Aminotransferase (ALT/SGPT) 22, Alkaline Phosphatase 223H, Troponin I 0.163H, C-Reactive Protein, Quantitative > 70.0H, Pro-B-Type Natriuretic Peptide > 12915K, Total Protein 7.1, Albumin 2.2L, Globulin 4.9, Albumin/Globulin Ratio 0.4L, Vitamin D 25-Hydroxy [Pending], 25- Hydroxy Vitamin D2 [Pending], 25-Hydroxy Vitamin D3 [Pending] 08/03/20 04:51: POC Whole Blood Glucose 381H 08/03/20 09:15: POC Whole Blood Glucose [Pending] Height (Feet): 5 Height (Inches): 4.00 Weight (Pounds): 180 General Appearance: no apparent distress EENT: other - Intubated on ventilator Cardiovascular: tachycardia Respiratory/Chest: decreased breath sounds Abdomen: distended Francis Falk MD Aug 03, 2020 16:23
--- NOTE | 2020-08-03 17:25 | NUR ---
NURSE NOTES: Albumin 25% and Midodrine 20mg given as ordered. Patient is awake and is tolerating the current vent setting. Turned and repositioned patient. Will continue to monitor.
[2020-08-03] MEDS: Midodrine 10mg tab ORAL SCH ×2 (17:28→21:47)
--- NOTE | 2020-08-03 18:01 | NUR ---
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
--- NOTE | 2020-08-03 19:20 | NUR ---
NURSE HAND-OFF REPORT: Latest Vital Signs: Temperature 96.8 , Pulse 94 , B/P 128 /47 , Respiratory Rate 22 , O2 SAT 99 , Nasal Cannula, O2 Flow Rate 3.0 . Vital Sign Comment: EKG Rhythm: Atrial Fibrillation Rhythm change?: N MD Notified?: Response: Latest Elizabeth Fall Score: 60 Fall Risk: High Risk Safety Measures: Call light Within Reach, Bed Alarm Zone 1, Side Rails Side Rails x3, Bed position Low and Locked. Fall Precautions: Door Sign eport given to SIDNEY Terrazas.
--- NOTE | 2020-08-03 19:30 | NUR ---
NURSE NOTES: received pt orally intuibated on ac mode, no schedule for Hd at this time. Bp labile. Will continue to monitor.
--- NOTE | 2020-08-03 19:48 | General Progress Note ---
Subjective Allergies: Coded Allergies: No Known Allergies (Unverified , 05/12/17) Subjective above noted seen in am in ICU tolerating TF dark stools Objective Last 24 Hour Vital Signs Date Time Temp Pulse Resp B/P (MAP) Pulse Ox O2 Delivery O2 Flow Rate FiO2 08/03/20 19:19 94 22 40 08/03/20 19:00 95 15 128/47 (74) 99 08/03/20 18:00 103 19 118/46 (70) 97 08/03/20 17:32 110 140/62 08/03/20 17:00 105 18 134/56 (82) 100 08/03/20 16:00 96.8 95 28 94/35 (54) 100 08/03/20 16:00 40 08/03/20 16:00 Mechanical Ventilator 08/03/20 15:21 101 08/03/20 15:00 94 17 143/57 (85) 99 08/03/20 14:52 104 18 40 08/03/20 14:00 103 14 109/80 (90) 99 08/03/20 13:00 98.5 111 18 110/53 (72) 98 08/03/20 12:00 96 17 90/40 (57) 99 08/03/20 12:00 Mechanical Ventilator 08/03/20 12:00 40 08/03/20 11:29 93 08/03/20 11:08 111 19 40 08/03/20 11:00 112 17 137/48 (77) 98 08/03/20 10:00 105 18 117/57 (77) 97 08/03/20 09:00 95 19 89/43 (58) 99 08/03/20 08:00 40 08/03/20 08:00 98.0 92 19 97/40 (59) 100 08/03/20 08:00 Mechanical Ventilator 08/03/20 07:48 90 08/03/20 07:05 96 19 40 08/03/20 07:00 92 16 106/48 (67) 100 08/03/20 06:00 92 16 124/46 (72) 99 08/03/20 06:00 91 122/80 08/03/20 05:30 95 19 121/47 (71) 98 08/03/20 05:00 110 16 115/61 (79) 97 08/03/20 04:30 107 18 137/49 (78) 99 08/03/20 04:00 103 08/03/20 04:00 99.0 121 25 123/44 (70) 97 08/03/20 04:00 40 08/03/20 04:00 Mechanical Ventilator 08/03/20 03:45 112 18 150/42 (78) 97 08/03/20 03:30 116 18 138/51 (80) 96 08/03/20 03:25 118 18 40 08/03/20 03:00 117 22 146/55 (85) 95 08/03/20 02:45 119 21 154/97 (116) 97 08/03/20 02:30 124 19 152/49 (83) 97 08/03/20 02:00 126 18 149/44 (79) 97 08/03/20 01:30 126 19 137/57 (83) 99 08/03/20 01:00 133 19 152/50 (84) 100 08/03/20 00:30 132 20 144/61 (88) 100 08/03/20 00:00 Mechanical Ventilator 08/03/20 00:00 40 08/03/20 00:00 103 08/03/20 00:00 130 100/54 08/03/20 00:00 100.0 139 21 89/31 (50) 100 08/02/20 23:45 128 22 89/31 (50) 100 08/02/20 23:30 130 22 83/42 (56) 98 08/02/20 23:15 127 22 164/52 (89) 100 08/02/20 23:06 105 17 40 08/02/20 23:00 107 17 88/46 (60) 100 08/02/20 22:45 102 14 85/36 (52) 100 08/02/20 22:30 105 19 92/36 (54) 99 08/02/20 22:15 112 16 103/47 (65) 99 08/02/20 22:00 118 19 126/46 (72) 99 08/02/20 21:45 128 19 143/59 (87) 100 08/02/20 21:30 119 19 143/53 (83) 100 08/02/20 21:15 115 18 140/45 (76) 100 08/02/20 21:00 120 20 134/53 (80) 100 08/02/20 20:45 118 20 131/45 (73) 100 08/02/20 20:30 115 20 134/71 (92) 100 08/02/20 20:00 Mechanical Ventilator 08/02/20 20:00 111 08/02/20 20:00 40 08/02/20 20:00 99.0 107 18 77/38 (51) 99 08/02/20 19:52 105 19 40 Intake and Output 08/02/20 08/03/20 19:00 07:00 Intake Total 245.005 ml 126.25 ml Balance 245.005 ml 126.25 ml IV Total 245.005 ml 126.25 ml Tube Feeding 0 ml 0 ml Laboratory Tests 08/03/20 04:35: White Blood Count 24.4*H, Red Blood Count 2.70L, Hemoglobin 10.2#L, Hematocrit 27.1L, Mean Corpuscular Volume 101H, Mean Corpuscular Hemoglobin 37.7H, Mean Corpuscular Hemoglobin Concent 37.5H, Red Cell Distribution Width 16.8H, Platelet Count 167, Mean Platelet Volume 8.7, Neutrophils (%) (Auto) , Lymphocytes (%) (Auto) , Monocytes (%) (Auto) , Eosinophils (%) (Auto) , Basophils (%) (Auto) , Differential Total Cells Counted 100, Neutrophils % (Manual) 88H, Lymphocytes % (Manual) 1L, Monocytes % (Manual) 2, Eosinophils % (Manual) 2, Basophils % (Manual) 0, Band Neutrophils 7, Platelet Estimate Adequate, Platelet Morphology Normal, Hypochromasia , Anisocytosis 1+, Macrocytosis 1+, Sodium Level 137, Potassium Level 4.8, Chloride Level 94L, Carbon Dioxide Level 25, Blood Urea Nitrogen 67H, Creatinine 3.9H, Estimat Glomerular Filtration Rate 11.4, Glucose Level 373#H, Uric Acid 4.8, Calcium Level 9.0, Phosphorus Level 7.3H, Magnesium Level 2.0, Total Bilirubin 2.3H, Direct Bilirubin 1.6H, Aspartate Amino Transf (AST/SGOT) 29, Alanine Aminotransferase (ALT/SGPT) 22, Alkaline Phosphatase 223H, Troponin I 0.163H, C- Reactive Protein, Quantitative > 70.0H, Pro-B-Type Natriuretic Peptide > 09971N, Total Protein 7.1, Albumin 2.2L, Globulin 4.9, Albumin/Globulin Ratio 0.4L, Vitamin D 25-Hydroxy [Pending], 25-Hydroxy Vitamin D2 [Pending], 25-Hydroxy Vitamin D3 [Pending] 08/03/20 04:51: POC Whole Blood Glucose 381H 08/03/20 09:15: POC Whole Blood Glucose [Pending] 08/03/20 11:52: POC Whole Blood Glucose [Pending] 08/03/20 17:46: POC Whole Blood Glucose [Pending] Height (Feet): 5 Height (Inches): 4.00 Weight (Pounds): 180 Objective Elderly woman on vent restrained moving spontaneously NCAT supple Coarse BS RR abd soft flat no edema Assessment/Plan Status: progressing, deteriorating Assessment/Plan: Assessment - Recurrent GI bleed - diarrhea - presumed related to COVID and/or TF - anemia - s/p multiple endoscopies and colonoscopies this year - resp failure - COPD - COVID PNA - abnormal LFT - presumed COVID related - DM - Poor Px Recommendations - PPI BID - Tube feeds --> change to VItal AF - follow labs - HD - PRN transfusion - No plans for endoscopy per discussion with family (Delayed entry - this note is for 08/02/2020 visit) Ramakrishna Leonard MD Aug 03, 2020 19:47
--- NOTE | 2020-08-03 19:55 | General Progress Note ---
Subjective Allergies: Coded Allergies: No Known Allergies (Unverified , 05/12/17) Subjective above noted d/w RN stools green/black tolerating TF less diarrhea volume Objective Last 24 Hour Vital Signs Date Time Temp Pulse Resp B/P (MAP) Pulse Ox O2 Delivery O2 Flow Rate FiO2 08/03/20 19:19 94 22 40 08/03/20 19:00 95 15 128/47 (74) 99 08/03/20 18:00 103 19 118/46 (70) 97 08/03/20 17:32 110 140/62 08/03/20 17:00 105 18 134/56 (82) 100 08/03/20 16:00 96.8 95 28 94/35 (54) 100 08/03/20 16:00 40 08/03/20 16:00 Mechanical Ventilator 08/03/20 15:21 101 08/03/20 15:00 94 17 143/57 (85) 99 08/03/20 14:52 104 18 40 08/03/20 14:00 103 14 109/80 (90) 99 08/03/20 13:00 98.5 111 18 110/53 (72) 98 08/03/20 12:00 96 17 90/40 (57) 99 08/03/20 12:00 Mechanical Ventilator 08/03/20 12:00 40 08/03/20 11:29 93 08/03/20 11:08 111 19 40 08/03/20 11:00 112 17 137/48 (77) 98 08/03/20 10:00 105 18 117/57 (77) 97 08/03/20 09:00 95 19 89/43 (58) 99 08/03/20 08:00 40 08/03/20 08:00 98.0 92 19 97/40 (59) 100 08/03/20 08:00 Mechanical Ventilator 08/03/20 07:48 90 08/03/20 07:05 96 19 40 08/03/20 07:00 92 16 106/48 (67) 100 08/03/20 06:00 92 16 124/46 (72) 99 08/03/20 06:00 91 122/80 08/03/20 05:30 95 19 121/47 (71) 98 08/03/20 05:00 110 16 115/61 (79) 97 08/03/20 04:30 107 18 137/49 (78) 99 08/03/20 04:00 103 08/03/20 04:00 99.0 121 25 123/44 (70) 97 08/03/20 04:00 40 08/03/20 04:00 Mechanical Ventilator 08/03/20 03:45 112 18 150/42 (78) 97 08/03/20 03:30 116 18 138/51 (80) 96 08/03/20 03:25 118 18 40 08/03/20 03:00 117 22 146/55 (85) 95 08/03/20 02:45 119 21 154/97 (116) 97 08/03/20 02:30 124 19 152/49 (83) 97 08/03/20 02:00 126 18 149/44 (79) 97 08/03/20 01:30 126 19 137/57 (83) 99 08/03/20 01:00 133 19 152/50 (84) 100 08/03/20 00:30 132 20 144/61 (88) 100 08/03/20 00:00 Mechanical Ventilator 08/03/20 00:00 40 08/03/20 00:00 103 08/03/20 00:00 130 100/54 08/03/20 00:00 100.0 139 21 89/31 (50) 100 08/02/20 23:45 128 22 89/31 (50) 100 08/02/20 23:30 130 22 83/42 (56) 98 08/02/20 23:15 127 22 164/52 (89) 100 08/02/20 23:06 105 17 40 08/02/20 23:00 107 17 88/46 (60) 100 08/02/20 22:45 102 14 85/36 (52) 100 08/02/20 22:30 105 19 92/36 (54) 99 08/02/20 22:15 112 16 103/47 (65) 99 08/02/20 22:00 118 19 126/46 (72) 99 08/02/20 21:45 128 19 143/59 (87) 100 08/02/20 21:30 119 19 143/53 (83) 100 08/02/20 21:15 115 18 140/45 (76) 100 08/02/20 21:00 120 20 134/53 (80) 100 08/02/20 20:45 118 20 131/45 (73) 100 08/02/20 20:30 115 20 134/71 (92) 100 08/02/20 20:00 Mechanical Ventilator 08/02/20 20:00 111 08/02/20 20:00 40 08/02/20 20:00 99.0 107 18 77/38 (51) 99 08/02/20 19:52 105 19 40 Intake and Output 08/02/20 08/03/20 19:00 07:00 Intake Total 245.005 ml 126.25 ml Balance 245.005 ml 126.25 ml IV Total 245.005 ml 126.25 ml Tube Feeding 0 ml 0 ml Laboratory Tests 08/03/20 04:35: White Blood Count 24.4*H, Red Blood Count 2.70L, Hemoglobin 10.2#L, Hematocrit 27.1L, Mean Corpuscular Volume 101H, Mean Corpuscular Hemoglobin 37.7H, Mean Corpuscular Hemoglobin Concent 37.5H, Red Cell Distribution Width 16.8H, Platelet Count 167, Mean Platelet Volume 8.7, Neutrophils (%) (Auto) , Lymphocytes (%) (Auto) , Monocytes (%) (Auto) , Eosinophils (%) (Auto) , Basophils (%) (Auto) , Differential Total Cells Counted 100, Neutrophils % (Manual) 88H, Lymphocytes % (Manual) 1L, Monocytes % (Manual) 2, Eosinophils % (Manual) 2, Basophils % (Manual) 0, Band Neutrophils 7, Platelet Estimate Adequate, Platelet Morphology Normal, Hypochromasia , Anisocytosis 1+, Macrocyt osis 1+, Sodium Level 137, Potassium Level 4.8, Chloride Level 94L, Carbon Dioxide Level 25, Blood Urea Nitrogen 67H, Creatinine 3.9H, Estimat Glomerular Filtration Rate 11.4, Glucose Level 373#H, Uric Acid 4.8, Calcium Level 9.0, Phosphorus Level 7.3H, Magnesium Level 2.0, Total Bilirubin 2.3H, Direct Bilirubin 1.6H, Aspartate Amino Transf (AST/SGOT) 29, Alanine Aminotransferase (ALT/SGPT) 22, Alkaline Phosphatase 223H, Troponin I 0.163H, C-Reactive Protein, Quantitative > 70.0H, Pro-B-Type Natriuretic Peptide > 46054P, Total Protein 7.1, Albumin 2.2L, Globulin 4.9, Albumin/Globulin Ratio 0.4L, Vitamin D 25-Hydroxy [Pending], 25-Hydroxy Vitamin D2 [Pending], 25-Hydroxy Vitamin D3 [Pending] 08/03/20 04:51: POC Whole Blood Glucose 381H 08/03/20 09:15: POC Whole Blood Glucose [Pending] 08/03/20 11:52: POC Whole Blood Glucose [Pending] 08/03/20 17:46: POC Whole Blood Glucose [Pending] Height (Feet): 5 Height (Inches): 4.00 Weight (Pounds): 180 Objective Elderly woman seen in ICU on vent resting comfortably exam limited due to COVID isolation Assessment/Plan Status: progressing, deteriorating Assessment/Plan: Assessment - Recurrent GI bleed - diarrhea - improved - leukocytosis / shock / sepsis - anemia - s/p multiple endoscopies and colonoscopies this year - resp failure - COPD - COVID PNA - abnormal LFT - presumed COVID related - DM - Poor Px Recommendations - PPI BID - Tube feeds --> VItal AF - follow labs - HD - PRN transfusion - No plans for endoscopy per discussion with family - check CT abd / pelvis given WBC and Sepsis Ramakrishna Leonard MD Aug 03, 2020 19:55
[2020-08-03] MEDS: Dyna-Hex 2% Top Sol 2oz TOPIC SCH (20:07)
--- NOTE | 2020-08-03 20:32 | General Progress Note ---
Subjective ROS Limited/Unobtainable: Yes Allergies: Coded Allergies: No Known Allergies (Unverified , 05/12/17) Objective Last 24 Hour Vital Signs Date Time Temp Pulse Resp B/P (MAP) Pulse Ox O2 Delivery O2 Flow Rate FiO2 08/03/20 19:19 94 22 40 08/03/20 19:00 95 15 128/47 (74) 99 08/03/20 18:00 103 19 118/46 (70) 97 08/03/20 17:32 110 140/62 08/03/20 17:00 105 18 134/56 (82) 100 08/03/20 16:00 96.8 95 28 94/35 (54) 100 08/03/20 16:00 40 08/03/20 16:00 Mechanical Ventilator 08/03/20 15:21 101 08/03/20 15:00 94 17 143/57 (85) 99 08/03/20 14:52 104 18 40 08/03/20 14:00 103 14 109/80 (90) 99 08/03/20 13:00 98.5 111 18 110/53 (72) 98 08/03/20 12:00 96 17 90/40 (57) 99 08/03/20 12:00 Mechanical Ventilator 08/03/20 12:00 40 08/03/20 11:29 93 08/03/20 11:08 111 19 40 08/03/20 11:00 112 17 137/48 (77) 98 08/03/20 10:00 105 18 117/57 (77) 97 08/03/20 09:00 95 19 89/43 (58) 99 08/03/20 08:00 40 08/03/20 08:00 98.0 92 19 97/40 (59) 100 08/03/20 08:00 Mechanical Ventilator 08/03/20 07:48 90 08/03/20 07:05 96 19 40 08/03/20 07:00 92 16 106/48 (67) 100 08/03/20 06:00 92 16 124/46 (72) 99 08/03/20 06:00 91 122/80 08/03/20 05:30 95 19 121/47 (71) 98 08/03/20 05:00 110 16 115/61 (79) 97 08/03/20 04:30 107 18 137/49 (78) 99 08/03/20 04:00 103 08/03/20 04:00 99.0 121 25 123/44 (70) 97 08/03/20 04:00 40 08/03/20 04:00 Mechanical Ventilator 08/03/20 03:45 112 18 150/42 (78) 97 08/03/20 03:30 116 18 138/51 (80) 96 08/03/20 03:25 118 18 40 08/03/20 03:00 117 22 146/55 (85) 95 08/03/20 02:45 119 21 154/97 (116) 97 08/03/20 02:30 124 19 152/49 (83) 97 08/03/20 02:00 126 18 149/44 (79) 97 08/03/20 01:30 126 19 137/57 (83) 99 08/03/20 01:00 133 19 152/50 (84) 100 08/03/20 00:30 132 20 144/61 (88) 100 08/03/20 00:00 Mechanical Ventilator 08/03/20 00:00 40 08/03/20 00:00 103 08/03/20 00:00 130 100/54 08/03/20 00:00 100.0 139 21 89/31 (50) 100 08/02/20 23:45 128 22 89/31 (50) 100 08/02/20 23:30 130 22 83/42 (56) 98 08/02/20 23:15 127 22 164/52 (89) 100 08/02/20 23:06 105 17 40 08/02/20 23:00 107 17 88/46 (60) 100 08/02/20 22:45 102 14 85/36 (52) 100 08/02/20 22:30 105 19 92/36 (54) 99 08/02/20 22:15 112 16 103/47 (65) 99 08/02/20 22:00 118 19 126/46 (72) 99 08/02/20 21:45 128 19 143/59 (87) 100 08/02/20 21:30 119 19 143/53 (83) 100 08/02/20 21:15 115 18 140/45 (76) 100 08/02/20 21:00 120 20 134/53 (80) 100 08/02/20 20:45 118 20 131/45 (73) 100 Intake and Output 08/02/20 08/03/20 19:00 07:00 Intake Total 245.005 ml 126.25 ml Balance 245.005 ml 126.25 ml IV Total 245.005 ml 126.25 ml Tube Feeding 0 ml 0 ml Laboratory Tests 08/03/20 04:35: White Blood Count 24.4*H, Red Blood Count 2.70L, Hemoglobin 10.2#L, Hematocrit 27.1L, Mean Corpuscular Volume 101H, Mean Corpuscular Hemoglobin 37.7H, Mean Corpuscular Hemoglobin Concent 37.5H, Red Cell Distribution Width 16.8H, P latelet Count 167, Mean Platelet Volume 8.7, Neutrophils (%) (Auto) , Lymphocytes (%) (Auto) , Monocytes (%) (Auto) , Eosinophils (%) (Auto) , Basophils (%) (Auto) , Differential Total Cells Counted 100, Neutrophils % (Manual) 88H, Lymphocytes % (Manual) 1L, Monocytes % (Manual) 2, Eosinophils % (Manual) 2, Basophils % (Manual) 0, Band Neutrophils 7, Platelet Estimate Adequate, Platelet Morphology Normal, Hypochromasia , Anisocytosis 1+, Macrocytosis 1+, Sodium Level 137, Potassium Level 4.8, Chloride Level 94L, Carbon Dioxide Level 25, Blood Urea Nitrogen 67H, Creatinine 3.9H, Estimat Glomerular Filtration Rate 11.4, Glucose Level 373#H, Uric Acid 4.8, Calcium Level 9.0, Phosphorus Level 7.3H, Magnesium Level 2.0, Total Bilirubin 2.3H, Direct Bilirubin 1.6H, Aspartate Amino Transf (AST/SGOT) 29, Alanine Aminotransferase (ALT/SGPT) 22, Alkaline Phosphatase 223H, Troponin I 0.163H, C- Reactive Protein, Quantitative > 70.0H, Pro-B-Type Natriuretic Peptide > 87073L, Total Protein 7.1, Albumin 2.2L, Globulin 4.9, Albumin/Globulin Ratio 0.4L, Vitamin D 25-Hydroxy [Pending], 25-Hydroxy Vitamin D2 [Pending], 25-Hydroxy Vitamin D3 [Pending] 08/03/20 04:51: POC Whole Blood Glucose 381H 08/03/20 09:15: POC Whole Blood Glucose [Pending] 08/03/20 11:52: POC Whole Blood Glucose [Pending] 08/03/20 17:46: POC Whole Blood Glucose [Pending] Height (Feet): 5 Height (Inches): 4.00 Weight (Pounds): 180 Assessment/Plan Problem List: (1) Pneumonia ICD Codes: J18.9 - Pneumonia, unspecified organism SNOMED: 754407870 (2) Hypertension ICD Codes: I10 - Essential (primary) hypertension SNOMED: 92416472 (3) Renal failure ICD Codes: N19 - Unspecified kidney failure SNOMED: 05402275 (4) Anemia in chronic kidney disease (CKD) ICD Codes: N18.9 - Chronic kidney disease, unspecified; D63.1 - Anemia in chronic kidney disease SNOMED: 635251035 (5) weakness (6) ESRD (end stage renal disease) ICD Codes: N18.6 - End stage renal disease SNOMED: 88658084 (7) Diabetic nephropathy with proteinuria ICD Codes: E11.21 - Type 2 diabetes mellitus with diabetic nephropathy SNOMED: 67366454, 397089381 Status: progressing, deteriorating Assessment/Plan: on pressors very poor prognosis not improving copd niddm htn esrd on hd resp failure niddm covid positive pna Makenna Daniel MD Aug 03, 2020 20:32
--- NOTE | 2020-08-03 20:55 | Psychiatric Progress Note ---
Psychiatry Progress Note Psychiatry Progress Note Medications Current Medications Medications (Trade) Dose Ordered Sig/Toya Route PRN Reason Start Time Stop Time Status Last Admin Dose Admin Acetaminophen (Tylenol) 650 mg EVERY 6 HOURS PRN NG Mild Pain (Pain Scale 1-3) 07/29/20 09:05 08/28/20 09:04 08/01/20 20:44 Acetaminophen (Tylenol) 650 mg EVERY 6 HOURS PRN NG Temp >100.5 07/29/20 09:15 08/28/20 09:14 08/02/20 08:17 Barium Sulfate (Readi-Cat 2) 450 ml NOW PRN ORAL Radiology Procedure 08/03/20 20:00 08/05/20 19:59 Chlorhexidine Gluconate (Yessi-Hex 2%) 1 applic DAILY@1999 TOPIC 07/21/20 20:00 10/19/20 19:59 08/03/20 20:07 Clonidine HCl (Catapres Tab) 0.1 mg Q4H PRN NG bp over 165 syst 07/21/20 12:00 10/14/20 22:44 Dextrose (Dextrose 50%) 25 ml Q30M PRN IV Hypoglycemia 07/22/20 08:00 10/20/20 07:59 Dextrose (Dextrose 50%) 50 ml Q30M PRN IV Hypoglycemia 07/22/20 08:00 10/20/20 07:59 Docusate Sodium (Colace) 100 mg EVERY 8 HOURS NG 07/29/20 22:00 08/20/20 12:59 08/03/20 06:00 Epoetin Panchito (Epoetin Panchito(ESRD on dialysis)) 2,000 unit THU-THU-THU SUBQ 08/03/20 21:00 11/01/20 20:59 Epoetin Panchito (Epoetin Panchito(ESRD on dialysis)) 8,000 unit THU-THU-THU SUBQ 08/03/20 21:00 11/01/20 20:59 Haloperidol Lactate (Haldol) 5 mg Q6H PRN IM Agitation 07/17/20 17:30 08/31/20 17:29 08/01/20 12:13 Insulin Aspart (NovoLOG) Q6HR SUBQ 07/22/20 08:15 10/20/20 11:29 08/03/20 12:09 Insulin Detemir (Levemir) 12 units Q12HR SUBQ 07/24/20 09:00 10/20/20 09:59 08/03/20 09:35 Loperamide HCl (Imodium) 2 mg Q6H PRN NG Diarrhea 07/29/20 15:45 08/28/20 15:44 Lorazepam (Ativan 2mg/ml 1ml) 1 mg Q4H PRN IV For Anxiety 07/30/20 06:37 08/06/20 06:36 08/01/20 08:48 Metoprolol Tartrate (Lopressor) 25 mg EVERY 6 HOURS NG 07/26/20 12:00 10/24/20 11:59 08/03/20 17:32 Midodrine (Pro-Amatine) 10 mg Q8HR ORAL 08/03/20 16:30 11/01/20 16:29 08/03/20 17:28 Norepinephrine Bitartrate 250 ml @ 0 mls/hr Q24H IV 08/02/20 10:30 08/05/20 10:29 08/02/20 10:38 Pantoprazole (Protonix) 40 mg EVERY 12 HOURS IVP 07/21/20 21:00 08/20/20 20:59 08/03/20 09:04 Piperacillin Sod/ Tazobactam Sod 2.25 gm/Dextrose 55 ml @ 110 mls/hr Q8HR@0200,1000,1800 IV 08/03/20 10:00 08/10/20 09:59 08/03/20 17:32 Quetiapine Fumarate (SEROqueL) 50 mg Q12HR ORAL 07/30/20 21:00 09/13/20 20:59 08/03/20 09:04 Vitamin D (Vitamin D) 5,000 unit DAILY ORAL 07/29/20 09:00 08/28/20 08:59 08/03/20 09:10 Neurological/Psychiatric: Reports: anxiety, depressed; Denies: no symptoms, emotional problems, headache, numbness, paresthesia, pre-existing deficit, seizure, tingling, tremors, weakness, other Allergies: Coded Allergies: No Known Allergies (Unverified , 05/12/17) Objective Data Height (Feet): 5 Height (Inches): 4.00 Weight (Pounds): 180 General Appearance: no apparent distress Additional Comments: MENTAL STATUS EXAMINATION: The patient is having waxing and waning consciousness. Mood is irritable and anxious. Affect is blunted, congruent with mood. Thought process is concrete. Thought content, no suicidal or homicidal ideation. Cognition is impaired. Insight and judgment is impaired. Assessment/Plan [place] I: ASSESSMENT: [place] I Acute toxic encephalopathy. [place] II Deferred. [place] III COVID-19. [place] IV Low. [place] V 20. PLAN: 1. We will start the patient on low dose of antipsychotics. 2. restraints. 3. Discussed with the nurse. Status: progressing, deteriorating Status Narrative ASSESSMENT: [place] I Acute toxic encephalopathy. [place] II Deferred. [place] III COVID-19. [place] IV Low. [place] V 20. PLAN: 1. We will start the patient on low dose of antipsychotics. 2. restraints. 3. Discussed with the nurse. Assessment/Plan: ASSESSMENT: [place] I Acute toxic encephalopathy. [place] II Deferred. [place] III COVID-19. [place] IV Low. [place] V 20. PLAN: 1. We will start the patient on low dose of antipsychotics. 2. restraints. 3. Discussed with the nurse. Alecia Collins MD Aug 03, 2020 20:55
[2020-08-03] MEDS: Epoetin Alfa-EPBX(ESRD on dialysis)4000 units/ml vial SUBQ SCH (21:16)
[2020-08-03] MEDS: Epoetin Alfa-EPBX(ESRD on dialysis)2000 units/ml vial SUBQ SCH (21:16)
--- NOTE | 2020-08-03 22:50 | NUR ---
NURSE NOTES: Called Dr Leonard and aware that pt unable to go to scan due to being unstable secondary to low BP, Md verbalized to try to go ct scan when pt is stable
[2020-08-04] VITALS (69 sets, daily range): BP systolic 55–181; BP diastolic 28–103
--- NOTE | 2020-08-04 | NUR ---
NURSE NOTES: Bp was low placed pt on supine position. Fdg was off
--- NOTE | 2020-08-04 | NUR ---
NURSE NOTES: pt desat down to 70s, suctioned tn tk beige secretions moderate in amt. Fio2 increased to 100% by RT
[2020-08-04] MEDS: NovoLOG Insulin Flexpen SUBQ SCH ×4 (00:04→18:00)
[2020-08-04] MEDS: Piperacillin/Tazobactam 2.25 GM in D5W 55 ML IV SCH ×3 (02:00→18:20)
--- NOTE | 2020-08-04 02:00 | NUR ---
NURSE NOTES: restraints dcd pt not moving and not agitated.
--- NOTE | 2020-08-04 03:27 | NUR ---
NURSE NOTES: Pt on afib 119, Bp 123/56
--- NOTE | 2020-08-04 03:34 | NUR ---
NURSE NOTES: Bp 86/35 , on Afib 120s. fdg cont. to hold.
[2020-08-04 05:13] LABS: PHOSPHORUS 7.6 MG/DL (2.5-4.9)
[2020-08-04 05:15] LABS: ALBUMIN 2.2 G/DL (3.4-5.0); ALBUMIN/GLOBULIN RATIO 0.5 (1.0-2.7); BILIRUBIN,TOTAL 2.1 MG/DL (0.2-1.0); CALCIUM 9.2 MG/DL (8.5-10.1); CREATININE 4.8 MG/DL (0.55-1.30); HEMATOCRIT 24.8 % (37.0-47.0); HEMOGLOBIN 9.6 G/DL (12.0-16.0); MEAN CORPUSCULAR VOLUME 103 FL (80-99); PLATELET COUNT 162 K/UL (150-450); POTASSIUM 4.3 MMOL/L (3.5-5.1); RED BLOOD COUNT 2.41 M/UL (4.20-5.40); RED CELL DISTRIBUTION WIDTH 15.9 % (11.6-14.8)
[2020-08-04] MEDS: Norepinephrine Premix 4mg/NS 250mL IV SCH ×2 (05:16→09:46)
[2020-08-04 05:19] LABS: BILIRUBIN,DIRECT 1.5 MG/DL (0.0-0.3)
[2020-08-04 05:32] LABS: WHITE BLOOD COUNT 23.7 K/UL (4.8-10.8)
[2020-08-04] MEDS: Docusate 100mg/10ml Liq NG SCH ×3 (06:00→22:00)
--- NOTE | 2020-08-04 06:00 | NUR ---
NURSE NOTES: Bp 143/63 , Afib 124, pt not agitated, soft wrist restraints dcd.
[2020-08-04] MEDS: Midodrine 10mg tab ORAL SCH ×3 (06:15→22:10)
--- NOTE | 2020-08-04 07:10 | NUR ---
NURSE NOTES: Report received from SIDNEY Terrazas. Patient is sleeping. Lethargic but able to wake up. Opens eyes spontaneously. Unable to follow commands nor verbalize needs. Afib on secured entrance monitor with HR 90-110's. ETT 7.5/24cm at lip line. AC 16, TV 500, FiO2 100%, P 10. O2 sat 97-100%. RR 20's. OGT in place receiving Vital AF 1.2 at 50cc/hr. No residual noted. No heredia. Anuric. Rectal tube in place draining dark brown loose BM to gravity. SHAMEKA AV shunt for HD noted. Bruits and thrill noted. Right femoral TLC patent and asymptomatic. Patient is on Levo at 20 mcg/min. Bed in lowest position. Side rails up x3. Will resume plan of care.
--- NOTE | 2020-08-04 07:15 | NUR ---
NURSE HAND-OFF REPORT: Latest Vital Signs: Temperature 97.9 , Pulse 101 , B/P 115 /42 , Respiratory Rate 23 , O2 SAT 94 , Nasal Cannula, O2 Flow Rate 3.0 . Vital Sign Comment: EKG Rhythm: Atrial Fibrillation Rhythm change?: N Notified?: Roxanne Gatica MD Response: Latest Elizabeth Fall Score: 60 Fall Risk: High Risk Safety Measures: Call light Within Reach, Bed Alarm Zone 1, Side Rails Side Rails x3, Bed position Low and Locked. Fall Precautions: Door Sign Report given to Paul LITTLE.
--- NOTE | 2020-08-04 08:00 | NUR ---
NURSE NOTES: Rectal temp 100.4. Patient is on cooling blanket. Will continue to monitor.
[2020-08-04] MEDS: Vitamin D 1000 units Tab ORAL SCH (09:12)
[2020-08-04] MEDS: Pantoprazole Inj IVP SCH ×2 (09:12→21:22)
--- NOTE | 2020-08-04 09:28 | NUR ---
RD ASSESSMENT & RECOMMENDATIONS SEE CARE ACTIVITY FOR COMPLETE ASSESSMENT DAILY ESTIMATED NEEDS: Needs based on ESRD on HD, DM, crtical care 49 adj 25-33 kcals/kg 1022-4667 total kcals 1.25-2 g protein/kg 61-98 g total protein Fluid per MD, on HD mL/kg . total fluid mLs NUTRITION DIAGNOSIS: 1) Increased kcal and protein needs R/T renal dysfunction as evidenced by pt w/ESRD on HD. 2) Swallowing difficulty R/T respiratory failure as evidenced by orally intubated, on NGT feeds. 3) Altered nutrition related lab values R/T h/o DM as evidenced by elev BGs (200's and 300's). CURRENT TF:TF changed to Vital AF 1.2 @ 50ml/hr x 24 hrs ENTERAL NUTRITION RECOMMENDATIONS: Nepro @ 35ml/hr x 24 hrs to provide 840ml, 1512kcal, 68g prot, 611ml free water * Rec renal TF formula of Nepro as pt w/ h/o ESRD dx, HD dep, phos elev * W/ hemodynamic stability, rec goal rate of 35ml/hr x 24 hrs * HOB over 30 degrees/ water flush per MD * Provides 408mg less phos than current TF order WITHOUT HEMODYANMIC STABILITY, rec trophic feeding of Nepro @ 15ml/hr x 24 hrs if able to keep HOB >30 degrees ADDITIONAL RECOMMENDATIONS: 1) Daily calibrated bedscale wt: Wt fluctuating 80kg's-> 60kg's 2) Monitor BGs closely: BGs now 200's and 300's, rec to increase Levemir Monitor for hypoglycemia, need for insulin adjustment 3) Nephrovite x 1 4) Monitor lytes- phos elev, now on non-renal TF formula 5) Add BARBRA in 4oz water BID via OGT with diet order for skin integrity 6) Add probiotics for diarrhea
[2020-08-04] MEDS: Levemir Flexpen SUBQ SCH ×2 (09:47→21:25)
--- NOTE | 2020-08-04 09:50 | Pulmonology Progress Note ---
Subjective ROS Limited/Unobtainable: Yes Interval Events: No dialysis yesterday Constitutional: Reports: no symptoms, other - Fvxw=369.4 HEENT: Repors: no symptoms Respiratory: Reports: no symptoms Cardiovascular: Reports: no symptoms Gastrointestinal/Abdominal: Reports: other - rectal bleeding Genitourinary: Reports: no symptoms Allergies: Coded Allergies: No Known Allergies (Unverified , 05/12/17) All Systems: reviewed and negative except above Objective Last 24 Hour Vital Signs Date Time Temp Pulse Resp B/P (MAP) Pulse Ox O2 Delivery O2 Flow Rate FiO2 08/04/20 09:46 152/61 08/04/20 07:16 118 16 40 08/04/20 06:30 125 20 146/60 (88) 100 08/04/20 06:00 121 17 141/58 (85) 100 08/04/20 06:00 119 86/50 08/04/20 05:30 139 15 153/62 (92) 100 08/04/20 05:16 85/55 08/04/20 05:00 136 18 82/46 (58) 100 08/04/20 04:15 143 22 114/50 (71) 100 08/04/20 04:00 Mechanical Ventilator 08/04/20 04:00 142 08/04/20 04:00 136 25 134/57 (82) 100 08/04/20 04:00 100 08/04/20 04:00 99.9 136 25 134/57 (82) 100 08/04/20 03:45 126 18 133/59 (83) 100 08/04/20 03:30 120 18 86/50 (62) 100 08/04/20 03:15 130 18 123/56 (78) 100 08/04/20 03:08 140 18 181/64 (103) 100 08/04/20 03:00 128 19 163/66 (98) 100 08/04/20 02:45 125 19 161/63 (95) 100 08/04/20 02:39 121 19 169/64 (99) 100 08/04/20 02:15 152 21 123/103 (110) 100 08/04/20 02:04 111 20 104/36 (58) 100 08/04/20 02:02 88 19 55/38 (44) 98 08/04/20 02:00 63 17 63/28 (40) 85 08/04/20 01:45 119 19 82/38 (53) 88 08/04/20 01:30 135 19 101/49 (66) 89 08/04/20 01:15 65 18 86/55 (65) 85 08/04/20 01:00 165 19 112/52 (72) 95 08/04/20 00:45 148 26 134/99 (111) 99 08/04/20 00:30 130 23 103/48 (66) 96 08/04/20 00:15 123 30 125/58 (80) 93 08/04/20 00:11 114 19 40 08/04/20 00:03 107 107/48 08/04/20 00:00 100 08/04/20 00:00 99.0 100 18 90/51 (64) 98 08/04/20 00:00 Mechanical Ventilator 08/04/20 00:00 88 08/03/20 23:45 95 16 107/46 (66) 96 08/03/20 23:30 98 19 98/45 (62) 96 08/03/20 23:15 116 21 97/51 (66) 92 08/03/20 23:04 80/43 08/03/20 23:00 103 16 98/46 (63) 99 08/03/20 22:30 110 16 80/35 (50) 99 08/03/20 22:00 97 16 96/49 (65) 99 08/03/20 21:00 89 18 119/55 (76) 99 08/03/20 20:00 Mechanical Ventilator 08/03/20 20:00 99.0 88 17 108/55 (72) 99 08/03/20 20:00 88 08/03/20 19:19 94 22 40 08/03/20 19:00 95 15 128/47 (74) 99 08/03/20 18:00 103 19 118/46 (70) 97 08/03/20 17:32 110 140/62 08/03/20 17:00 105 18 134/56 (82) 100 08/03/20 16:00 96.8 95 28 94/35 (54) 100 08/03/20 16:00 40 08/03/20 16:00 Mechanical Ventilator 08/03/20 15:21 101 08/03/20 15:00 94 17 143/57 (85) 99 08/03/20 14:52 104 18 40 08/03/20 14:00 103 14 109/80 (90) 99 08/03/20 13:00 98.5 111 18 110/53 (72) 98 08/03/20 12:00 96 17 90/40 (57) 99 08/03/20 12:00 Mechanical Ventilator 08/03/20 12:00 40 08/03/20 11:29 93 08/03/20 11:08 111 19 40 08/03/20 11:00 112 17 137/48 (77) 98 08/03/20 10:00 105 18 117/57 (77) 97 Intake and Output 08/03/20 08/04/20 19:00 07:00 Intake Total 500 ml 805.00 ml Output Total 100 ml 140 ml Balance 400 ml 665.00 ml IV Total 210 ml 505.00 ml Tube Feeding 240 ml 300 ml Other 50 ml Output Urine Total 0 ml Stool Total 100 ml 140 ml General Appearance: WD/WN, no acute distress, other - intubation HEENT: normocephalic Respiratory: chest wall non-tender, crackles/rales Cardiovascular: normal rate, regular rhythm Microbiology Date/Time Source Procedure Growth Status 08/03/20 18:15 Sputum Gram Stain - Final Resulted 08/03/20 18:15 Sputum Sputum Culture Pending Resulted Laboratory Tests 08/03/20 11:52: POC Whole Blood Glucose [Pending] 08/03/20 17:46: POC Whole Blood Glucose [Pending] 08/03/20 21:19: POC Whole Blood Glucose [Pending] 08/03/20 23:58: POC Whole Blood Glucose 181H 08/04/20 03:45: White Blood Count 23.7*H, Red Blood Count 2.41L, Hemoglobin 9.6L, Hematocrit 24.8L, Mean Corpuscular Volume 103H, Mean Corpuscular Hemoglobin 39.7H, Mean Corpuscular Hemoglobin Concent 38.6H, Red Cell Distribution Width 15.9H, Platelet Count 162, Mean Platelet Volume 8.3, Neutrophils (%) (Auto) , Lymphocytes (%) (Auto) , Monocytes (%) (Auto) , Eosinophils (%) (Auto) , Basophils (%) (Auto) , Neutrophils % (Manual) [Pending], Lymphocytes % (Manual) [Pending], Platelet Estimate [Pending], Platelet Morphology [Pending], Sodium Level 137, Potassium Level 4.3, Chloride Level 96L, Carbon Dioxide Level 26, Anion Gap 15, Blood Urea Nitrogen 93H, Creatinine 4.8H, Estimat Glomerular Filtration Rate 9.0, Glucose Level 246#H, Calcium Level 9.2, Phosphorus Level 7.6H, Magnesium Level 2.0, Total Bilirubin 2.1H, Direct Bilirubin 1.5H, Aspartate Amino Transf (AST/SGOT) 45H, Alanine Aminotransferase (ALT/SGPT) 20, Alkaline Phosphatase 365H, C-Reactive Protein, Quantitative 39.0H, Pro-B-Type Natriuretic Peptide > 07092B, Total Protein 6.9, Albumin 2.2L, Globulin 4.7, Albumin/Globulin Ratio 0.5L 08/04/20 06:25: POC Whole Blood Glucose 251H 08/04/20 09:25: POC Whole Blood Glucose [Pending] Current Medications Medications (Trade) Dose Ordered Sig/Toya Route PRN Reason Start Time Stop Time Status Last Admin Dose Admin Acetaminophen (Tylenol) 650 mg EVERY 6 HOURS PRN NG Mild Pain (Pain Scale 1-3) 07/29/20 09:05 08/28/20 09:04 08/01/20 20:44 Acetaminophen (Tylenol) 650 mg EVERY 6 HOURS PRN NG Temp >100.5 07/29/20 09:15 08/28/20 09:14 08/02/20 08:17 Barium Sulfate (Readi-Cat 2) 450 ml NOW PRN ORAL Radiology Procedure 08/03/20 20:00 08/05/20 19:59 Chlorhexidine Gluconate (Yessi-Hex 2%) 1 applic DAILY@1999 TOPIC 07/21/20 20:00 10/19/20 19:59 08/03/20 20:07 Clonidine HCl (Catapres Tab) 0.1 mg Q4H PRN NG bp over 165 syst 07/21/20 12:00 10/14/20 22:44 Dextrose (Dextrose 50%) 25 ml Q30M PRN IV Hypoglycemia 07/22/20 08:00 10/20/20 07:59 Dextrose (Dextrose 50%) 50 ml Q30M PRN IV Hypoglycemia 07/22/20 08:00 10/20/20 07:59 Docusate Sodium (Colace) 100 mg EVERY 8 HOURS NG 07/29/20 22:00 08/20/20 12:59 08/03/20 06:00 Epoetin Panchito (Epoetin Panchito(ESRD on dialysis)) 2,000 unit SUBQ 08/03/20 21:00 11/01/20 20:59 08/03/20 21:16 Epoetin Panchito (Epoetin Panchito(ESRD on dialysis)) 8,000 unit SUBQ 08/03/20 21:00 11/01/20 20:59 08/03/20 21:16 Haloperidol Lactate (Haldol) 5 mg Q6H PRN IM Agitation 07/17/20 17:30 08/31/20 17:29 08/01/20 12:13 Insulin Aspart (NovoLOG) Q6HR SUBQ 07/22/20 08:15 10/20/20 11:29 08/04/20 06:35 Insulin Detemir (Levemir) 12 units Q12HR SUBQ 07/24/20 09:00 10/20/20 09:59 08/04/20 09:47 Loperamide HCl (Imodium) 2 mg Q6H PRN NG Diarrhea 07/29/20 15:45 08/28/20 15:44 Lorazepam (Ativan 2mg/ml 1ml) 1 mg Q4H PRN IV For Anxiety 07/30/20 06:37 08/06/20 06:36 08/01/20 08:48 Metoprolol Tartrate (Lopressor) 25 mg EVERY 6 HOURS NG 07/26/20 12:00 10/24/20 11:59 08/04/20 00:03 Midodrine (Pro-Amatine) 10 mg Q8HR ORAL 08/03/20 16:30 11/01/20 16:29 08/04/20 06:15 Norepinephrine Bitartrate 250 ml @ 0 mls/hr Q24H IV 08/02/20 10:30 08/05/20 10:29 08/04/20 09:46 Pantoprazole (Protonix) 40 mg EVERY 12 HOURS IVP 07/21/20 21:00 08/20/20 20:59 08/04/20 09:12 Piperacillin Sod/ Tazobactam Sod 2.25 gm/Dextrose 55 ml @ 110 mls/hr Q8HR@0200,1000,1800 IV 08/03/20 10:00 08/10/20 09:59 08/04/20 09:13 Quetiapine Fumarate (SEROqueL) 50 mg Q12HR ORAL 07/30/20 21:00 09/13/20 20:59 08/03/20 21:15 Vitamin D (Vitamin D) 5,000 unit DAILY ORAL 07/29/20 09:00 08/28/20 08:59 08/04/20 09:12 Assessment/Plan Assessment/Plan Assessment/Plan 1. COVID-19 pneumonia. - on Abx 2. COPD 3. Pneumonia 4. Hypertensive emergency. 5. Leukocytosis. 6. Anemia. 7. Hyponatremia. 8. Hyperkalemia. 9. Hypochloridemia. 10. Hyperglycemia. 11. ESRD, on dialysis. 12. Respiratory failure; intubated PLAN Continue O2; currently 100% Became bradycardic yesterday; FiO2 80% to 100% Vent; AC mode On PEEP now 10 Agree with HD; recommend daily HD Noted rectal bleeding -> s/p PRBC Transfusions in place CXR 08/03 improvement in mild to moderate diffuse bilateral alveolar infiltrates since the prior study Discussed with Dr Falk Will attempt wean when FiO2 and PEEP are lower Levy Allen,Levy Jenkins MD Aug 04, 2020 09:50
--- NOTE | 2020-08-04 09:59 | NUR ---
NURSE NOTES: Dr Allen here to see the patient. Updated him with patient's current condition including the episode of desaturation, agonal breathing, and low BP happened last night. No new orders for now.
--- NOTE | 2020-08-04 11:06 | NUR ---
NURSE NOTES: Dr Daniel here to see the patient. Updated him with patient's current condition. No new orders.
--- NOTE | 2020-08-04 11:06 | Hematology/Onc Progress Note ---
Assessment/Plan Assessment/Plan Assessment/Plan 1. Pancytopenia with hx anemia due to underlying chronic disease. Have reviewed prior workup, ferritin is >1000, covid19++++ --> Continue to closely monitor. --> Transfuse if hgb <7 --> ferritin is >1000 --> give epogen, has been started 3x a week --> as per renal --> monitor for gi bleed, gi consulted --> hgb trend 7.8-->9.3->8.9->>11-->9.5->8.9->8->8.2-->7.6-->6.8->10 --> plt 42-->50-->65-->104-->109-->176 --> ABX zosyn --> smear has been reviewed --> hep and hiv neg -> prbc 08/02 2. LEUKOCYTOSIS now, prior was Leukopenia likely reactive process v infection covid19++++ --> hepatitis and hiv prior negative --> neutropenic precautions if ANC <1500 --> trending stable --> imaging reviewed and no hsm / cirrhosis noted --> wbc 2.7-->3.6->>>2->5-->8-->17->12-->11-->24 --> increase in wbc due to steriods --> ANC goal >1500 3. End-stage renal disease, on hemodialysis three times a week. --> renal consulted --> continue hd 4. History of coronary artery disease. --> cards reviewed --> diuresis prn 5. History of anemia due to low B12, low iron --> b12 is currently within normal limits --> reobtain q6mo 6. Dizziness and unsteady gait 7. Covid 19 --> rx per id 8. DVt ppsx with SCDs Greatly appreciate consultation and Inocencio RN Subjective Allergies: Coded Allergies: No Known Allergies (Unverified , 05/12/17) Subjective Subjective: 07/19 meds noted, s/p hd, bp has improved, no bleeding, labs reviewed 07/20 labs are noted, no bleeding, meds reviewed, no major changes, hgb 9.5 07/22 remains in the icu, no bleeding, meds reviewed, on nc 07/23 labs noted, no bleeding, in icu, hgb 8.7, plt 90 07/24 is intubated, hgb 11, no bleeding, plt are better, meds reviewed 07/25 remains on zosyn, labs are noted, no bleeding, icu, meds ntoed, s/p hd yesterday with renal 07/26 seen at bedside with Justo Toro, doing HD today, is in the icu, have ordered epo 07/27 black tarry stools overnight, no bleeding, labs reviewed, plt better 07/29 restraints, is agitated, no bleeding, hgb 8.2, improved s/p transfusion 07/30 restraints, is for rectal tube insertion today for diarrhea 07/31 hd was done yesterday, labs reviewed, meds noted, for duplex today then scds 08/01 hd as needed, did have fever overnight is on zosyn 08/02 labs noted, pending cbc for the am, 1 unit prbc is ordered, inocencio Cazares, levo lower 08/03 remains in icu, restraints, abx, wbc 24, hgb 10 08/04: lethargic not following commands, no distress Objective Objective Current Medications Medications (Trade) Dose Ordered Sig/Toya Route PRN Reason Start Time Stop Time Status Last Admin Dose Admin Acetaminophen (Tylenol) 650 mg EVERY 6 HOURS PRN NG Mild Pain (Pain Scale 1-3) 07/29/20 09:05 08/28/20 09:04 08/01/20 20:44 Acetaminophen (Tylenol) 650 mg EVERY 6 HOURS PRN NG Temp >100.5 07/29/20 09:15 08/28/20 09:14 08/02/20 08:17 Barium Sulfate (Readi-Cat 2) 450 ml NOW PRN ORAL Radiology Procedure 08/03/20 20:00 08/05/20 19:59 Chlorhexidine Gluconate (Yessi-Hex 2%) 1 applic DAILY@1999 TOPIC 07/21/20 20:00 10/19/20 19:59 08/03/20 20:07 Clonidine HCl (Catapres Tab) 0.1 mg Q4H PRN NG bp over 165 syst 07/21/20 12:00 10/14/20 22:44 Dextrose (Dextrose 50%) 25 ml Q30M PRN IV Hypoglycemia 07/22/20 08:00 10/20/20 07:59 Dextrose (Dextrose 50%) 50 ml Q30M PRN IV Hypoglycemia 07/22/20 08:00 10/20/20 07:59 Docusate Sodium (Colace) 100 mg EVERY 8 HOURS NG 07/29/20 22:00 08/20/20 12:59 08/03/20 06:00 Epoetin Panchito (Epoetin Panchito(ESRD on dialysis)) 2,000 unit THU-THU-THU SUBQ 08/03/20 21:00 11/01/20 20:59 08/03/20 21:16 Epoetin Panchito (Epoetin Panchito(ESRD on dialysis)) 8,000 unit SUBQ 08/03/20 21:00 11/01/20 20:59 08/03/20 21:16 Haloperidol Lactate (Haldol) 5 mg Q6H PRN IM Agitation 07/17/20 17:30 08/31/20 17:29 08/01/20 12:13 Insulin Aspart (NovoLOG) Q6HR SUBQ 07/22/20 08:15 10/20/20 11:29 08/04/20 06:35 Insulin Detemir (Levemir) 12 units Q12HR SUBQ 07/24/20 09:00 10/20/20 09:59 08/04/20 09:47 Loperamide HCl (Imodium) 2 mg Q6H PRN NG Diarrhea 07/29/20 15:45 08/28/20 15:44 Lorazepam (Ativan 2mg/ml 1ml) 1 mg Q4H PRN IV For Anxiety 07/30/20 06:37 08/06/20 06:36 08/01/20 08:48 Metoprolol Tartrate (Lopressor) 25 mg EVERY 6 HOURS NG 07/26/20 12:00 10/24/20 11:59 08/04/20 00:03 Midodrine (Pro-Amatine) 10 mg Q8HR ORAL 08/03/20 16:30 11/01/20 16:29 08/04/20 06:15 Norepinephrine Bitartrate 250 ml @ 0 mls/hr Q24H IV 08/02/20 10:30 08/05/20 10:29 08/04/20 09:46 Pantoprazole (Protonix) 40 mg EVERY 12 HOURS IVP 07/21/20 21:00 08/20/20 20:59 08/04/20 09:12 Piperacillin Sod/ Tazobactam Sod 2.25 gm/Dextrose 55 ml @ 110 mls/hr Q8HR@0200,1000,1800 IV 08/03/20 10:00 08/10/20 09:59 08/04/20 09:13 Quetiapine Fumarate (SEROqueL) 50 mg Q12HR ORAL 07/30/20 21:00 09/13/20 20:59 08/03/20 21:15 Vitamin D (Vitamin D) 5,000 unit DAILY ORAL 07/29/20 09:00 08/28/20 08:59 08/04/20 09:12 Last 24 Hour Vital Signs Date Time Temp Pulse Resp B/P (MAP) Pulse Ox O2 Delivery O2 Flow Rate FiO2 08/04/20 11:00 104 20 144/70 (94) 100 08/04/20 10:45 99.4 107 20 170/73 (105) 100 08/04/20 10:30 103 20 177/65 (102) 100 08/04/20 10:15 104 17 160/63 (95) 100 08/04/20 10:00 106 21 159/67 (97) 100 08/04/20 09:46 152/61 08/04/20 09:45 107 21 137/58 (84) 100 08/04/20 09:30 112 20 134/47 (76) 100 08/04/20 09:00 96 23 98/45 (62) 100 08/04/20 08:30 102 27 90/31 (50) 100 08/04/20 08:00 100.4 132 22 120/56 (77) 100 08/04/20 07:30 133 24 154/72 (99) 100 08/04/20 07:16 118 16 40 08/04/20 07:00 120 20 152/69 (96) 100 08/04/20 06:30 125 20 146/60 (88) 100 08/04/20 06:00 121 17 141/58 (85) 100 08/04/20 06:00 119 86/50 08/04/20 05:30 139 15 153/62 (92) 100 08/04/20 05:16 85/55 08/04/20 05:00 136 18 82/46 (58) 100 08/04/20 04:15 143 22 114/50 (71) 100 08/04/20 04:00 Mechanical Ventilator 08/04/20 04:00 142 08/04/20 04:00 136 25 134/57 (82) 100 08/04/20 04:00 100 08/04/20 04:00 99.9 136 25 134/57 (82) 100 08/04/20 03:45 126 18 133/59 (83) 100 08/04/20 03:30 120 18 86/50 (62) 100 08/04/20 03:15 130 18 123/56 (78) 100 08/04/20 03:08 140 18 181/64 (103) 100 08/04/20 03:00 128 19 163/66 (98) 100 08/04/20 02:45 125 19 161/63 (95) 100 08/04/20 02:39 121 19 169/64 (99) 100 08/04/20 02:15 152 21 123/103 (110) 100 08/04/20 02:04 111 20 104/36 (58) 100 08/04/20 02:02 88 19 55/38 (44) 98 08/04/20 02:00 63 17 63/28 (40) 85 08/04/20 01:45 119 19 82/38 (53) 88 08/04/20 01:30 135 19 101/49 (66) 89 08/04/20 01:15 65 18 86/55 (65) 85 08/04/20 01:00 165 19 112/52 (72) 95 08/04/20 00:45 148 26 134/99 (111) 99 08/04/20 00:30 130 23 103/48 (66) 96 08/04/20 00:15 123 30 125/58 (80) 93 08/04/20 00:11 114 19 40 08/04/20 00:03 107 107/48 08/04/20 00:00 100 08/04/20 00:00 99.0 100 18 90/51 (64) 98 08/04/20 00:00 Mechanical Ventilator 08/04/20 00:00 88 08/03/20 23:45 95 16 107/46 (66) 96 08/03/20 23:30 98 19 98/45 (62) 96 08/03/20 23:15 116 21 97/51 (66) 92 08/03/20 23:04 80/43 08/03/20 23:00 103 16 98/46 (63) 99 08/03/20 22:30 110 16 80/35 (50) 99 08/03/20 22:00 97 16 96/49 (65) 99 08/03/20 21:00 89 18 119/55 (76) 99 08/03/20 20:00 Mechanical Ventilator 08/03/20 20:00 99.0 88 17 108/55 (72) 99 08/03/20 20:00 88 08/03/20 19:19 94 22 40 08/03/20 19:00 95 15 128/47 (74) 99 08/03/20 18:00 103 19 118/46 (70) 97 08/03/20 17:32 110 140/62 08/03/20 17:00 105 18 134/56 (82) 100 08/03/20 16:00 96.8 95 28 94/35 (54) 100 08/03/20 16:00 40 08/03/20 16:00 Mechanical Ventilator 08/03/20 15:21 101 08/03/20 15:00 94 17 143/57 (85) 99 08/03/20 14:52 104 18 40 08/03/20 14:00 103 14 109/80 (90) 99 08/03/20 13:00 98.5 111 18 110/53 (72) 98 08/03/20 12:00 96 17 90/40 (57) 99 08/03/20 12:00 Mechanical Ventilator 08/03/20 12:00 40 08/03/20 11:29 93 08/03/20 11:08 111 19 40 08/03/20 11:00 112 17 137/48 (77) 98 08/03/20 10:00 105 18 117/57 (77) 97 08/03/20 09:00 95 19 89/43 (58) 99 08/03/20 08:00 40 08/03/20 08:00 98.0 92 19 97/40 (59) 100 08/03/20 08:00 Mechanical Ventilator 08/03/20 07:48 90 08/03/20 07:05 96 19 40 08/03/20 07:00 92 16 106/48 (67) 100 08/03/20 06:00 92 16 124/46 (72) 99 08/03/20 06:00 91 122/80 08/03/20 05:30 95 19 121/47 (71) 98 08/03/20 05:00 110 16 115/61 (79) 97 08/03/20 04:30 107 18 137/49 (78) 99 08/03/20 04:00 103 08/03/20 04:00 99.0 121 25 123/44 (70) 97 08/03/20 04:00 40 08/03/20 04:00 Mechanical Ventilator 08/03/20 03:45 112 18 150/42 (78) 97 08/03/20 03:30 116 18 138/51 (80) 96 08/03/20 03:25 118 18 40 08/03/20 03:00 117 22 146/55 (85) 95 08/03/20 02:45 119 21 154/97 (116) 97 08/03/20 02:30 124 19 152/49 (83) 97 08/03/20 02:00 126 18 149/44 (79) 97 08/03/20 01:30 126 19 137/57 (83) 99 08/03/20 01:00 133 19 152/50 (84) 100 08/03/20 00:30 132 20 144/61 (88) 100 08/03/20 00:00 Mechanical Ventilator 08/03/20 00:00 40 08/03/20 00:00 103 08/03/20 00:00 130 100/54 08/03/20 00:00 100.0 139 21 89/31 (50) 100 08/02/20 23:45 128 22 89/31 (50) 100 08/02/20 23:30 130 22 83/42 (56) 98 08/02/20 23:15 127 22 164/52 (89) 100 08/02/20 23:06 105 17 40 08/02/20 23:00 107 17 88/46 (60) 100 08/02/20 22:45 102 14 85/36 (52) 100 08/02/20 22:30 105 19 92/36 (54) 99 08/02/20 22:15 112 16 103/47 (65) 99 08/02/20 22:00 118 19 126/46 (72) 99 08/02/20 21:45 128 19 143/59 (87) 100 08/02/20 21:30 119 19 143/53 (83) 100 08/02/20 21:15 115 18 140/45 (76) 100 08/02/20 21:00 120 20 134/53 (80) 100 08/02/20 20:45 118 20 131/45 (73) 100 08/02/20 20:30 115 20 134/71 (92) 100 08/02/20 20:00 Mechanical Ventilator 08/02/20 20:00 111 08/02/20 20:00 40 08/02/20 20:00 99.0 107 18 77/38 (51) 99 08/02/20 19:52 105 19 40 08/02/20 19:00 98 18 130/92 (105) 96 08/02/20 18:30 104 18 154/53 (86) 100 08/02/20 18:00 97 19 130/92 (105) 99 08/02/20 17:00 98 22 112/41 (64) 96 08/02/20 16:30 109 12 118/44 (68) 97 08/02/20 16:00 40 08/02/20 16:00 103 08/02/20 16:00 Mechanical Ventilator 08/02/20 16:00 99 19 127/47 (73) 100 08/02/20 15:30 98 23 127/44 (71) 100 08/02/20 15:00 104 17 167/62 (97) 100 08/02/20 14:30 95 16 147/49 (81) 100 08/02/20 14:30 98.7 08/02/20 14:00 93 12 117/42 (67) 100 08/02/20 13:30 95 22 114/44 (67) 100 08/02/20 13:25 106 17 40 08/02/20 13:00 95 17 105/48 (67) 100 08/02/20 12:30 95 19 87/37 (54) 100 08/02/20 12:00 60 08/02/20 12:00 97 19 170/47 (88) 100 08/02/20 12:00 Mechanical Ventilator 08/02/20 12:00 91 08/02/20 12:00 99.9 08/02/20 11:30 99 17 114/44 (67) 100 08/02/20 11:20 99.6 Intake and Output 08/03/20 08/04/20 19:00 07:00 Intake Total 500 ml 805.00 ml Output Total 100 ml 140 ml Balance 400 ml 665.00 ml IV Total 210 ml 505.00 ml Tube Feeding 240 ml 300 ml Other 50 ml Output Urine Total 0 ml Stool Total 100 ml 140 ml Labs Test 08/01/20 12:09 08/01/20 21:30 08/02/20 00:32 08/02/20 08:30 White Blood Count 12.5 K/UL (4.8-10.8) 16.7 K/UL (4.8-10.8) Red Blood Count 2.16 M/UL (4.20-5.40) 2.02 M/UL (4.20-5.40) Hemoglobin 7.0 G/DL (12.0-16.0) 6.8 G/DL (12.0-16.0) Hematocrit 22.0 % (37.0-47.0) 20.7 % (37.0-47.0) Mean Corpuscular Volume 102 FL (80-99) 102 FL (80-99) Mean Corpuscular Hemoglobin 32.5 PG (27.0-31.0) 33.8 PG (27.0-31.0) Mean Corpuscular Hemoglobin Concent 31.9 G/DL (32.0-36.0) 33.0 G/DL (32.0-36.0) Red Cell Distribution Width 18.2 % (11.6-14.8) 17.9 % (11.6-14.8) Platelet Count 146 K/UL (150-450) 161 K/UL (150-450) Mean Platelet Volume 8.7 FL (6.5-10.1) 7.5 FL (6.5-10.1) Neutrophils (%) (Auto) % (45.0-75.0) % (45.0-75.0) Lymphocytes (%) (Auto) % (20.0-45.0) % (20.0-45.0) Monocytes (%) (Auto) % (1.0-10.0) % (1.0-10.0) Eosinophils (%) (Auto) % (0.0-3.0) % (0.0-3.0) Basophils (%) (Auto) % (0.0-2.0) % (0.0-2.0) Differential Total Cells Counted 100 100 Neutrophils % (Manual) 97 % (45-75) 93 % (45-75) Lymphocytes % (Manual) 1 % (20-45) 1 % (20-45) Monocytes % (Manual) 2 % (1-10) 0 % (1-10) Eosinophils % (Manual) 0 % (0-3) 0 % (0-3) Basophils % (Manual) 0 % (0-2) 1 % (0-2) Band Neutrophils 0 % (0-8) 5 % (0-8) Platelet Estimate Decreased Adequate Platelet Morphology Normal Normal Anisocytosis 1+ 1+ Macrocytosis 1+ 2+ Sodium Level 139 MMOL/L (136-145) Potassium Level 4.2 MMOL/L (3.5-5.1) Chloride Level 97 MMOL/L (98-107) Carbon Dioxide Level 28 MMOL/L (21-32) Anion Gap 14 mmol/L (5-15) Blood Urea Nitrogen 97 mg/dL (7-18) Creatinine 5.6 MG/DL (0.55-1.30) Estimat Glomerular Filtration Rate 7.5 mL/min (>60) Glucose Level 409 MG/DL (74-106) Calcium Level 8.3 MG/DL (8.5-10.1) Phosphorus Level 5.7 MG/DL (2.5-4.9) Total Bilirubin 1.4 MG/DL (0.2-1.0) Direct Bilirubin 1.0 MG/DL (0.0-0.3) Aspartate Amino Transf (AST/SGOT) 137 U/L (15-37) Alanine Aminotransferase (ALT/SGPT) 36 U/L (12-78) Alkaline Phosphatase 302 U/L (46-116) C-Reactive Protein, Quantitative 31.8 mg/dL (0.00-0.90) Pro-B-Type Natriuretic Peptide > 89566 pg/mL (0-125) Total Protein 7.0 G/DL (6.4-8.2) Albumin 2.3 G/DL (3.4-5.0) Globulin 4.7 g/dL Albumin/Globulin Ratio 0.5 (1.0-2.7) Polychromasia 1+ POC Whole Blood Glucose 147 MG/DL (74-106) Test 08/02/20 10:25 08/02/20 16:47 08/03/20 04:35 08/03/20 04:51 White Blood Count 18.3 K/UL (4.8-10.8) 24.4 K/UL (4.8-10.8) Red Blood Count 2.05 M/UL (4.20-5.40) 2.70 M/UL (4.20-5.40) Hemoglobin 6.7 G/DL (12.0-16.0) 10.2 G/DL (12.0-16.0) Hematocrit 20.9 % (37.0-47.0) 27.1 % (37.0-47.0) Mean Corpuscular Volume 102 FL (80-99) 101 FL (80-99) Mean Corpuscular Hemoglobin 32.8 PG (27.0-31.0) 37.7 PG (27.0-31.0) Mean Corpuscular Hemoglobin Concent 32.1 G/DL (32.0-36.0) 37.5 G/DL (32.0-36.0) Red Cell Distribution Width 18.0 % (11.6-14.8) 16.8 % (11.6-14.8) Platelet Count 189 K/UL (150-450) 167 K/UL (150-450) Mean Platelet Volume 8.1 FL (6.5-10.1) 8.7 FL (6.5-10.1) Neutrophils (%) (Auto) % (45.0-75.0) % (45.0-75.0) Lymphocytes (%) (Auto) % (20.0-45.0) % (20.0-45.0) Monocytes (%) (Auto) % (1.0-10.0) % (1.0-10.0) Eosinophils (%) (Auto) % (0.0-3.0) % (0.0-3.0) Basophils (%) (Auto) % (0.0-2.0) % (0.0-2.0) Differential Total Cells Counted 100 100 Neutrophils % (Manual) 91 % (45-75) 88 % (45-75) Lymphocytes % (Manual) 2 % (20-45) 1 % (20-45) Monocytes % (Manual) 1 % (1-10) 2 % (1-10) Eosinophils % (Manual) 1 % (0-3) 2 % (0-3) Basophils % (Manual) 0 % (0-2) 0 % (0-2) Band Neutrophils 5 % (0-8) 7 % (0-8) Platelet Estimate Adequate Adequate Platelet Morphology Normal Normal Hypochromasia 1+ Anisocytosis 1+ 1+ Macrocytosis 1+ 1+ Sodium Level 140 MMOL/L (136-145) 137 MMOL/L (136-145) Potassium Level 3.4 MMOL/L (3.5-5.1) 4.8 MMOL/L (3.5-5.1) Chloride Level 98 MMOL/L (98-107) 94 MMOL/L (98-107) Carbon Dioxide Level 34 MMOL/L (21-32) 25 MMOL/L (21-32) Anion Gap 8 mmol/L (5-15) Blood Urea Nitrogen 44 mg/dL (7-18) 67 mg/dL (7-18) Creatinine 2.9 MG/DL (0.55-1.30) 3.9 MG/DL (0.55-1.30) Estimat Glomerular Filtration Rate 16.0 mL/min (>60) 11.4 mL/min (>60) Glucose Level 200 MG/DL (74-106) 373 MG/DL (74-106) Calcium Level 8.6 MG/DL (8.5-10.1) 9.0 MG/DL (8.5-10.1) Phosphorus Level 3.9 MG/DL (2.5-4.9) 7.3 MG/DL (2.5-4.9) Magnesium Level 1.8 MG/DL (1.8-2.4) 2.0 MG/DL (1.8-2.4) Total Bilirubin 2.1 MG/DL (0.2-1.0) 2.3 MG/DL (0.2-1.0) Direct Bilirubin 1.4 MG/DL (0.0-0.3) 1.6 MG/DL (0.0-0.3) Aspartate Amino Transf (AST/SGOT) 44 U/L (15-37) 29 U/L (15-37) Alanine Aminotransferase (ALT/SGPT) 27 U/L (12-78) 22 U/L (12-78) Alkaline Phosphatase 219 U/L (46-116) 223 U/L (46-116) C-Reactive Protein, Quantitative 35.0 mg/dL (0.00-0.90) > 70.0 mg/dL (0.00-0.90) Pro-B-Type Natriuretic Peptide > 75545 pg/mL (0-125) > 30330 pg/mL (0-125) Total Protein 6.9 G/DL (6.4-8.2) 7.1 G/DL (6.4-8.2) Albumin 2.3 G/DL (3.4-5.0) 2.2 G/DL (3.4-5.0) Globulin 4.6 g/dL 4.9 g/dL Albumin/Globulin Ratio 0.5 (1.0-2.7) 0.4 (1.0-2.7) POC Whole Blood Glucose 252 MG/DL (74-106) 381 MG/DL (74-106) Uric Acid 4.8 MG/DL (2.6-7.2) Troponin I 0.163 ng/mL (0.000-0.056) Test 08/03/20 09:15 08/03/20 11:52 08/03/20 17:46 08/03/20 21:19 Test 08/03/20 23:58 08/04/20 03:45 08/04/20 06:25 08/04/20 09:25 POC Whole Blood Glucose 181 MG/DL (74-106) 251 MG/DL (74-106) White Blood Count 23.7 K/UL (4.8-10.8) Red Blood Count 2.41 M/UL (4.20-5.40) Hemoglobin 9.6 G/DL (12.0-16.0) Hematocrit 24.8 % (37.0-47.0) Mean Corpuscular Volume 103 FL (80-99) Mean Corpuscular Hemoglobin 39.7 PG (27.0-31.0) Mean Corpuscular Hemoglobin Concent 38.6 G/DL (32.0-36.0) Red Cell Distribution Width 15.9 % (11.6-14.8) Platelet Count 162 K/UL (150-450) Mean Platelet Volume 8.3 FL (6.5-10.1) Neutrophils (%) (Auto) % (45.0-75.0) Lymphocytes (%) (Auto) % (20.0-45.0) Monocytes (%) (Auto) % (1.0-10.0) Eosinophils (%) (Auto) % (0.0-3.0) Basophils (%) (Auto) % (0.0-2.0) Differential Total Cells Counted 100 Neutrophils % (Manual) 93 % (45-75) Lymphocytes % (Manual) 1 % (20-45) Monocytes % (Manual) 2 % (1-10) Eosinophils % (Manual) 1 % (0-3) Basophils % (Manual) 0 % (0-2) Band Neutrophils 3 % (0-8) Platelet Estimate Adequate Platelet Morphology Normal Hypochromasia 1+ Anisocytosis 1+ Macrocytosis 1+ Sodium Level 137 MMOL/L (136-145) Potassium Level 4.3 MMOL/L (3.5-5.1) Chloride Level 96 MMOL/L (98-107) Carbon Dioxide Level 26 MMOL/L (21-32) Anion Gap 15 mmol/L (5-15) Blood Urea Nitrogen 93 mg/dL (7-18) Creatinine 4.8 MG/DL (0.55-1.30) Estimat Glomerular Filtration Rate 9.0 mL/min (>60) Glucose Level 246 MG/DL (74-106) Calcium Level 9.2 MG/DL (8.5-10.1) Phosphorus Level 7.6 MG/DL (2.5-4.9) Magnesium Level 2.0 MG/DL (1.8-2.4) Total Bilirubin 2.1 MG/DL (0.2-1.0) Direct Bilirubin 1.5 MG/DL (0.0-0.3) Aspartate Amino Transf (AST/SGOT) 45 U/L (15-37) Alanine Aminotransferase (ALT/SGPT) 20 U/L (12-78) Alkaline Phosphatase 365 U/L (46-116) C-Reactive Protein, Quantitative 39.0 mg/dL (0.00-0.90) Pro-B-Type Natriuretic Peptide > 15402 pg/mL (0-125) Total Protein 6.9 G/DL (6.4-8.2) Albumin 2.2 G/DL (3.4-5.0) Globulin 4.7 g/dL Albumin/Globulin Ratio 0.5 (1.0-2.7) Micro Microbiology Date/Time Source Procedure Growth Status 08/03/20 18:15 Sputum Gram Stain - Final Resulted 08/03/20 18:15 Sputum Sputum Culture Pending Resulted Height (Feet): 5 Height (Inches): 4.00 Weight (Pounds): 180 Objective Objective Physical Exam General Appearance: alert, obese, Chronically Ill Neck: full range of motion Respiratory: wheezing ETT vent Cardiovascular: edema Gastrointestinal: normal inspection, soft 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
--- NOTE | 2020-08-04 12:14 | Infectious Diseases Prog Note ---
Assessment/Plan Assessment/Plan IMPRESSION: COVID-19 disease, Altered mental status and encephalopathy, End-stage renal disease on hemodialysis, COPD, Asthma, Hypertension, Pancytopenia, Diabetes mellitus with hyperglycemia, Systolic heart failure, Aortic stenosis. Hypercapnic, hypoxemic respiratory failure GI bleeding Anemia Leukocytosis Hypotension RECOMMENDATION: Finished dexamethasone course Continue Zosyn & Vancomycin Will f/u cultures Subjective ROS Limited/Unobtainable: Yes Cardiovascular: Reports: other - was near code last night, started on Levophed dose is decreasing Allergies: Coded Allergies: No Known Allergies (Unverified , 05/12/17) Objective Last 24 Hour Vital Signs Date Time Temp Pulse Resp B/P (MAP) Pulse Ox O2 Delivery O2 Flow Rate FiO2 08/04/20 11:00 104 20 144/70 (94) 100 08/04/20 10:45 99.4 107 20 170/73 (105) 100 08/04/20 10:30 103 20 177/65 (102) 100 08/04/20 10:15 104 17 160/63 (95) 100 08/04/20 10:00 106 21 159/67 (97) 100 08/04/20 09:46 152/61 08/04/20 09:45 107 21 137/58 (84) 100 08/04/20 09:30 112 20 134/47 (76) 100 08/04/20 09:00 96 23 98/45 (62) 100 08/04/20 08:30 102 27 90/31 (50) 100 08/04/20 08:00 100 08/04/20 08:00 100.4 132 22 120/56 (77) 100 08/04/20 08:00 Mechanical Ventilator 08/04/20 07:30 133 24 154/72 (99) 100 08/04/20 07:16 118 16 40 08/04/20 07:00 120 20 152/69 (96) 100 08/04/20 06:30 125 20 146/60 (88) 100 08/04/20 06:00 121 17 141/58 (85) 100 08/04/20 06:00 119 86/50 08/04/20 05:30 139 15 153/62 (92) 100 08/04/20 05:16 85/55 08/04/20 05:00 136 18 82/46 (58) 100 08/04/20 04:15 143 22 114/50 (71) 100 08/04/20 04:00 Mechanical Ventilator 08/04/20 04:00 142 08/04/20 04:00 136 25 134/57 (82) 100 08/04/20 04:00 100 08/04/20 04:00 99.9 136 25 134/57 (82) 100 08/04/20 03:45 126 18 133/59 (83) 100 08/04/20 03:30 120 18 86/50 (62) 100 08/04/20 03:15 130 18 123/56 (78) 100 08/04/20 03:08 140 18 181/64 (103) 100 08/04/20 03:00 128 19 163/66 (98) 100 08/04/20 02:45 125 19 161/63 (95) 100 08/04/20 02:39 121 19 169/64 (99) 100 08/04/20 02:15 152 21 123/103 (110) 100 08/04/20 02:04 111 20 104/36 (58) 100 08/04/20 02:02 88 19 55/38 (44) 98 08/04/20 02:00 63 17 63/28 (40) 85 08/04/20 01:45 119 19 82/38 (53) 88 08/04/20 01:30 135 19 101/49 (66) 89 08/04/20 01:15 65 18 86/55 (65) 85 08/04/20 01:00 165 19 112/52 (72) 95 08/04/20 00:45 148 26 134/99 (111) 99 08/04/20 00:30 130 23 103/48 (66) 96 08/04/20 00:15 123 30 125/58 (80) 93 08/04/20 00:11 114 19 40 08/04/20 00:03 107 107/48 08/04/20 00:00 100 08/04/20 00:00 99.0 100 18 90/51 (64) 98 08/04/20 00:00 Mechanical Ventilator 08/04/20 00:00 88 08/03/20 23:45 95 16 107/46 (66) 96 08/03/20 23:30 98 19 98/45 (62) 96 08/03/20 23:15 116 21 97/51 (66) 92 08/03/20 23:04 80/43 08/03/20 23:00 103 16 98/46 (63) 99 08/03/20 22:30 110 16 80/35 (50) 99 08/03/20 22:00 97 16 96/49 (65) 99 08/03/20 21:00 89 18 119/55 (76) 99 08/03/20 20:00 Mechanical Ventilator 08/03/20 20:00 99.0 88 17 108/55 (72) 99 08/03/20 20:00 88 08/03/20 19:19 94 22 40 08/03/20 19:00 95 15 128/47 (74) 99 08/03/20 18:00 103 19 118/46 (70) 97 08/03/20 17:32 110 140/62 08/03/20 17:00 105 18 134/56 (82) 100 08/03/20 16:00 96.8 95 28 94/35 (54) 100 08/03/20 16:00 40 08/03/20 16:00 Mechanical Ventilator 08/03/20 15:21 101 08/03/20 15:00 94 17 143/57 (85) 99 08/03/20 14:52 104 18 40 08/03/20 14:00 103 14 109/80 (90) 99 08/03/20 13:00 98.5 111 18 110/53 (72) 98 Height (Feet): 5 Height (Inches): 4.00 Weight (Pounds): 180 HEENT: other - orally intubated Respiratory/Chest: other - on Ventilator, STB7=329% Cardiovascular: tachycardia Abdomen: soft, non tender, other - oG tube Extremities: no edema Neurologic/Psychiatric: unresponsiveness Microbiology Date/Time Source Procedure Growth Status 08/03/20 18:15 Sputum Gram Stain - Final Resulted 08/03/20 18:15 Sputum Sputum Culture Pending Resulted Laboratory Tests Test 08/03/20 17:46 08/03/20 21:19 08/03/20 23:58 08/04/20 03:45 POC Whole Blood Glucose Pending Pending 181 MG/DL (74-106) H White Blood Count 23.7 K/UL (4.8-10.8) *H Red Blood Count 2.41 M/UL (4.20-5.40) L Hemoglobin 9.6 G/DL (12.0-16.0) L Hematocrit 24.8 % (37.0-47.0) L Mean Corpuscular Volume 103 FL (80-99) H Mean Corpuscular Hemoglobin 39.7 PG (27.0-31.0) H Mean Corpuscular Hemoglobin Concent 38.6 G/DL (32.0-36.0) H Red Cell Distribution Width 15.9 % (11.6-14.8) H Platelet Count 162 K/UL (150-450) Mean Platelet Volume 8.3 FL (6.5-10.1) Neutrophils (%) (Auto) % (45.0-75.0) Lymphocytes (%) (Auto) % (20.0-45.0) Monocytes (%) (Auto) % (1.0-10.0) Eosinophils (%) (Auto) % (0.0-3.0) Basophils (%) (Auto) % (0.0-2.0) Differential Total Cells Counted 100 Neutrophils % (Manual) 93 % (45-75) H Lymphocytes % (Manual) 1 % (20-45) L Monocytes % (Manual) 2 % (1-10) Eosinophils % (Manual) 1 % (0-3) Basophils % (Manual) 0 % (0-2) Band Neutrophils 3 % (0-8) Platelet Estimate Adequate Platelet Morphology Normal Hypochromasia 1+ Anisocytosis 1+ Macrocytosis 1+ Sodium Level 137 MMOL/L (136-145) Potassium Level 4.3 MMOL/L (3.5-5.1) Chloride Level 96 MMOL/L (98-107) L Carbon Dioxide Level 26 MMOL/L (21-32) Anion Gap 15 mmol/L (5-15) Blood Urea Nitrogen 93 mg/dL (7-18) H Creatinine 4.8 MG/DL (0.55-1.30) H Estimat Glomerular Filtration Rate 9.0 mL/min (>60) Glucose Level 246 MG/DL (74-106) #H Calcium Level 9.2 MG/DL (8.5-10.1) Phosphorus Level 7.6 MG/DL (2.5-4.9) H Magnesium Level 2.0 MG/DL (1.8-2.4) Total Bilirubin 2.1 MG/DL (0.2-1.0) H Direct Bilirubin 1.5 MG/DL (0.0-0.3) H Aspartate Amino Transf (AST/SGOT) 45 U/L (15-37) H Alanine Aminotransferase (ALT/SGPT) 20 U/L (12-78) Alkaline Phosphatase 365 U/L (46-116) H C-Reactive Protein, Quantitative 39.0 mg/dL (0.00-0.90) H Pro-B-Type Natriuretic Peptide > 37945 pg/mL (0-125) H Total Protein 6.9 G/DL (6.4-8.2) Albumin 2.2 G/DL (3.4-5.0) L Globulin 4.7 g/dL Albumin/Globulin Ratio 0.5 (1.0-2.7) L Test 08/04/20 06:25 08/04/20 09:25 POC Whole Blood Glucose 251 MG/DL (74-106) H Pending Current Medications Medications (Trade) Dose Ordered Sig/Toya Route PRN Reason Start Time Stop Time Status Last Admin Dose Admin Acetaminophen (Tylenol) 650 mg EVERY 6 HOURS PRN NG Mild Pain (Pain Scale 1-3) 07/29/20 09:05 08/28/20 09:04 08/01/20 20:44 Acetaminophen (Tylenol) 650 mg EVERY 6 HOURS PRN NG Temp >100.5 07/29/20 09:15 08/28/20 09:14 08/02/20 08:17 Barium Sulfate (Readi-Cat 2) 450 ml NOW PRN ORAL Radiology Procedure 08/03/20 20:00 08/05/20 19:59 Chlorhexidine Gluconate (Yessi-Hex 2%) 1 applic DAILY@1999 TOPIC 07/21/20 20:00 10/19/20 19:59 08/03/20 20:07 Clonidine HCl (Catapres Tab) 0.1 mg Q4H PRN NG bp over 165 syst 07/21/20 12:00 10/14/20 22:44 Dextrose (Dextrose 50%) 25 ml Q30M PRN IV Hypoglycemia 07/22/20 08:00 10/20/20 07:59 Dextrose (Dextrose 50%) 50 ml Q30M PRN IV Hypoglycemia 07/22/20 08:00 10/20/20 07:59 Docusate Sodium (Colace) 100 mg EVERY 8 HOURS NG 07/29/20 22:00 08/20/20 12:59 08/03/20 06:00 Epoetin Panchito (Epoetin Panchito(ESRD on dialysis)) 2,000 unit SUBQ 08/03/20 21:00 11/01/20 20:59 08/03/20 21:16 Epoetin Panchito (Epoetin Panchito(ESRD on dialysis)) 8,000 unit SUBQ 08/03/20 21:00 11/01/20 20:59 08/03/20 21:16 Haloperidol Lactate (Haldol) 5 mg Q6H PRN IM Agitation 07/17/20 17:30 08/31/20 17:29 08/01/20 12:13 Insulin Aspart (NovoLOG) Q6HR SUBQ 07/22/20 08:15 10/20/20 11:29 08/04/20 06:35 Insulin Detemir (Levemir) 12 units Q12HR SUBQ 07/24/20 09:00 10/20/20 09:59 08/04/20 09:47 Loperamide HCl (Imodium) 2 mg Q6H PRN NG Diarrhea 07/29/20 15:45 08/28/20 15:44 Lorazepam (Ativan 2mg/ml 1ml) 1 mg Q4H PRN IV For Anxiety 07/30/20 06:37 08/06/20 06:36 08/01/20 08:48 Metoprolol Tartrate (Lopressor) 25 mg EVERY 6 HOURS NG 07/26/20 12:00 10/24/20 11:59 08/04/20 00:03 Midodrine (Pro-Amatine) 10 mg Q8HR ORAL 08/03/20 16:30 11/01/20 16:29 08/04/20 06:15 Norepinephrine Bitartrate 250 ml @ 0 mls/hr Q24H IV 08/02/20 10:30 08/05/20 10:29 08/04/20 09:46 Pantoprazole (Protonix) 40 mg EVERY 12 HOURS IVP 07/21/20 21:00 08/20/20 20:59 08/04/20 09:12 Piperacillin Sod/ Tazobactam Sod 2.25 gm/Dextrose 55 ml @ 110 mls/hr Q8HR@0200,1000,1800 IV 08/03/20 10:00 08/10/20 09:59 08/04/20 09:13 Quetiapine Fumarate (SEROqueL) 50 mg Q12HR ORAL 07/30/20 21:00 09/13/20 20:59 08/03/20 21:15 Vitamin D (Vitamin D) 5,000 unit DAILY ORAL 07/29/20 09:00 08/28/20 08:59 08/04/20 09:12 Kalin Briseno MD Aug 04, 2020 12:14
--- NOTE | 2020-08-04 13:43 | NUR ---
CASE MANAGEMENT: REVIEW 08/04/2020 SI:COVID PNA VS: T 96.4 HR 99 RR 20 B/P 125/61 SATS 100% ON MECH VENT FIO2 100 LABS: WBC 23.7 CL 96 BUN 93 CR 4.8 GLU 246 PHOS 7.6 TBILI 2.1 DBILI 1.5 AST 45 ALP 365 CRP 39 BNP >17958 IS: LOPRESSOR NG Q6H PROTONIX IV Q12H LEVEMIR SUBQ Q12H LEVOPHED IV PER PARAMETERS INSULIN ASPART SUBQ AC/HS ZOSYN IV Q8H ICU
--- NOTE | 2020-08-04 14:58 | General Progress Note ---
Subjective Allergies: Coded Allergies: No Known Allergies (Unverified , 05/12/17) Subjective above noted d/w RN doing poorly WBC elevated on pressors not stable for CT Objective Last 24 Hour Vital Signs Date Time Temp Pulse Resp B/P (MAP) Pulse Ox O2 Delivery O2 Flow Rate FiO2 08/04/20 14:00 101 22 94/51 (65) 100 08/04/20 13:30 97 17 108/50 (69) 100 08/04/20 13:00 94 14 111/66 (81) 100 08/04/20 12:30 99 17 129/55 (79) 100 08/04/20 12:00 Mechanical Ventilator 08/04/20 12:00 100 08/04/20 12:00 96.4 99 20 125/61 (82) 100 08/04/20 11:30 106 08/04/20 11:30 105 21 118/73 (88) 100 08/04/20 11:00 104 20 144/70 (94) 100 08/04/20 10:45 99.4 107 20 170/73 (105) 100 08/04/20 10:30 103 20 177/65 (102) 100 08/04/20 10:15 104 17 160/63 (95) 100 08/04/20 10:00 106 21 159/67 (97) 100 08/04/20 09:46 152/61 08/04/20 09:45 107 21 137/58 (84) 100 08/04/20 09:30 112 20 134/47 (76) 100 08/04/20 09:00 96 23 98/45 (62) 100 08/04/20 08:30 102 27 90/31 (50) 100 08/04/20 08:00 100 08/04/20 08:00 100.4 132 22 120/56 (77) 100 08/04/20 08:00 Mechanical Ventilator 08/04/20 07:53 126 08/04/20 07:30 133 24 154/72 (99) 100 08/04/20 07:16 118 16 40 08/04/20 07:00 120 20 152/69 (96) 100 08/04/20 06:30 125 20 146/60 (88) 100 08/04/20 06:00 121 17 141/58 (85) 100 08/04/20 06:00 119 86/50 08/04/20 05:30 139 15 153/62 (92) 100 08/04/20 05:16 85/55 08/04/20 05:00 136 18 82/46 (58) 100 08/04/20 04:15 143 22 114/50 (71) 100 08/04/20 04:00 Mechanical Ventilator 08/04/20 04:00 142 08/04/20 04:00 136 25 134/57 (82) 100 08/04/20 04:00 100 08/04/20 04:00 99.9 136 25 134/57 (82) 100 08/04/20 03:45 126 18 133/59 (83) 100 08/04/20 03:30 120 18 86/50 (62) 100 08/04/20 03:15 130 18 123/56 (78) 100 08/04/20 03:08 140 18 181/64 (103) 100 08/04/20 03:00 128 19 163/66 (98) 100 08/04/20 02:45 125 19 161/63 (95) 100 08/04/20 02:39 121 19 169/64 (99) 100 08/04/20 02:15 152 21 123/103 (110) 100 08/04/20 02:04 111 20 104/36 (58) 100 08/04/20 02:02 88 19 55/38 (44) 98 08/04/20 02:00 63 17 63/28 (40) 85 08/04/20 01:45 119 19 82/38 (53) 88 08/04/20 01:30 135 19 101/49 (66) 89 08/04/20 01:15 65 18 86/55 (65) 85 08/04/20 01:00 165 19 112/52 (72) 95 08/04/20 00:45 148 26 134/99 (111) 99 08/04/20 00:30 130 23 103/48 (66) 96 08/04/20 00:15 123 30 125/58 (80) 93 08/04/20 00:11 114 19 40 08/04/20 00:03 107 107/48 08/04/20 00:00 100 08/04/20 00:00 99.0 100 18 90/51 (64) 98 08/04/20 00:00 Mechanical Ventilator 08/04/20 00:00 88 08/03/20 23:45 95 16 107/46 (66) 96 08/03/20 23:30 98 19 98/45 (62) 96 08/03/20 23:15 116 21 97/51 (66) 92 08/03/20 23:04 80/43 08/03/20 23:00 103 16 98/46 (63) 99 08/03/20 22:30 110 16 80/35 (50) 99 08/03/20 22:00 97 16 96/49 (65) 99 08/03/20 21:00 89 18 119/55 (76) 99 08/03/20 20:00 Mechanical Ventilator 08/03/20 20:00 99.0 88 17 108/55 (72) 99 08/03/20 20:00 88 08/03/20 19:19 94 22 40 08/03/20 19:00 95 15 128/47 (74) 99 08/03/20 18:00 103 19 118/46 (70) 97 08/03/20 17:32 110 140/62 08/03/20 17:00 105 18 134/56 (82) 100 08/03/20 16:00 96.8 95 28 94/35 (54) 100 08/03/20 16:00 40 08/03/20 16:00 Mechanical Ventilator 08/03/20 15:21 101 08/03/20 15:00 94 17 143/57 (85) 99 Intake and Output 08/03/20 08/04/20 19:00 07:00 Intake Total 500 ml 805.00 ml Output Total 100 ml 140 ml Balance 400 ml 665.00 ml IV Total 210 ml 505.00 ml Tube Feeding 240 ml 300 ml Other 50 ml Output Urine Total 0 ml Stool Total 100 ml 140 ml Laboratory Tests 08/03/20 17:46: POC Whole Blood Glucose [Pending] 08/03/20 21:19: POC Whole Blood Glucose [Pending] 08/03/20 23:58: POC Whole Blood Glucose 181H 08/04/20 03:45: White Blood Count 23.7*H, Red Blood Count 2.41L, Hemoglobin 9.6L, Hematocrit 24.8L, Mean Corpuscular Volume 103H, Mean Corpuscular Hemoglobin 39.7H, Mean Corpuscular Hemoglobin Concent 38.6H, Red Cell Distribution Width 15.9H, Platelet Count 162, Mean Platelet Volume 8.3, Neutrophils (%) (Auto) , Lymphocytes (%) (Auto) , Monocytes (%) (Auto) , Eosinophils (%) (Auto) , Basophils (%) (Auto) , Differential Total Cells Counted 100, Neutrophils % (Manual) 93H, Lymphocytes % (Manual) 1L, Monocytes % (Manual) 2, Eosinophils % (Manual) 1, Basophils % (Manual) 0, Band Neutrophils 3, Platelet Estimate Adequate, Platelet Morphology Normal, Hypochromasia 1+, Anisocytosis 1+, Macrocytosis 1+, Sodium Level 137, Potassium Level 4.3, Chloride Level 96L, Carbon Dioxide Level 26, Anion Gap 15, Blood Urea Nitrogen 93H, Creatinine 4.8H, Estimat Glomerular Filtration Rate 9.0, Glucose Level 246#H, Calcium Level 9.2, Phosphorus Level 7.6H, Magnesium Level 2.0, Total Bilirubin 2.1H, Direct Bilirubin 1.5H, Aspartate Amino Transf (AST/SGOT) 45H, Alanine Aminotransferase (ALT/SGPT) 20, Alkaline Phosphatase 365H, C-Reactive Protein, Quantitative 39.0H , Pro-B-Type Natriuretic Peptide > [id number], Total Protein 6.9, Albumin 2.2L, Globulin 4.7, Albumin/Globulin Ratio 0.5L 08/04/20 06:25: POC Whole Blood Glucose 251H 08/04/20 09:25: POC Whole Blood Glucose [Pending] 08/04/20 12:43: POC Whole Blood Glucose [Pending] Height (Feet): 5 Height (Inches): 4.00 Weight (Pounds): 180 Objective Elderly woman seen in ICU on vent resting comfortably exam limited due to COVID isolation Assessment/Plan Status: progressing, deteriorating Assessment/Plan: Assessment - Recurrent GI bleed - diarrhea - improved - leukocytosis / shock / sepsis - anemia - s/p multiple endoscopies and colonoscopies this year - resp failure - COPD - COVID PNA - abnormal LFT - presumed COVID related - DM - Poor Px Recommendations - PPI BID - Tube feeds --> VItal AF - follow labs - HD - PRN transfusion - No plans for endoscopy per discussion with family - will check a repeat abd ultrasound, since not stable for CT at this time - check CT abd / pelvis once more stable Ramakrishna Leonard MD Aug 04, 2020 14:58
--- NOTE | 2020-08-04 15:20 | NUR ---
NURSE NOTES: Dr Falk here to see the patient. Updated him with patient' current condition. No new orders for now.
--- NOTE | 2020-08-04 15:20 | General Progress Note ---
Subjective ROS Limited/Unobtainable: Yes Allergies: Coded Allergies: No Known Allergies (Unverified , 05/12/17) Objective Last 24 Hour Vital Signs Date Time Temp Pulse Resp B/P (MAP) Pulse Ox O2 Delivery O2 Flow Rate FiO2 08/04/20 14:00 101 22 94/51 (65) 100 08/04/20 13:30 97 17 108/50 (69) 100 08/04/20 13:00 94 14 111/66 (81) 100 08/04/20 12:30 99 17 129/55 (79) 100 08/04/20 12:00 Mechanical Ventilator 08/04/20 12:00 100 08/04/20 12:00 96.4 99 20 125/61 (82) 100 08/04/20 11:30 106 08/04/20 11:30 105 21 118/73 (88) 100 08/04/20 11:00 104 20 144/70 (94) 100 08/04/20 10:45 99.4 107 20 170/73 (105) 100 08/04/20 10:30 103 20 177/65 (102) 100 08/04/20 10:15 104 17 160/63 (95) 100 08/04/20 10:00 106 21 159/67 (97) 100 08/04/20 09:46 152/61 08/04/20 09:45 107 21 137/58 (84) 100 08/04/20 09:30 112 20 134/47 (76) 100 08/04/20 09:00 96 23 98/45 (62) 100 08/04/20 08:30 102 27 90/31 (50) 100 08/04/20 08:00 100 08/04/20 08:00 100.4 132 22 120/56 (77) 100 08/04/20 08:00 Mechanical Ventilator 08/04/20 07:53 126 08/04/20 07:30 133 24 154/72 (99) 100 08/04/20 07:16 118 16 40 08/04/20 07:00 120 20 152/69 (96) 100 08/04/20 06:30 125 20 146/60 (88) 100 08/04/20 06:00 121 17 141/58 (85) 100 08/04/20 06:00 119 86/50 08/04/20 05:30 139 15 153/62 (92) 100 08/04/20 05:16 85/55 08/04/20 05:00 136 18 82/46 (58) 100 08/04/20 04:15 143 22 114/50 (71) 100 08/04/20 04:00 Mechanical Ventilator 08/04/20 04:00 142 08/04/20 04:00 136 25 134/57 (82) 100 08/04/20 04:00 100 08/04/20 04:00 99.9 136 25 134/57 (82) 100 08/04/20 03:45 126 18 133/59 (83) 100 08/04/20 03:30 120 18 86/50 (62) 100 08/04/20 03:15 130 18 123/56 (78) 100 08/04/20 03:08 140 18 181/64 (103) 100 08/04/20 03:00 128 19 163/66 (98) 100 08/04/20 02:45 125 19 161/63 (95) 100 08/04/20 02:39 121 19 169/64 (99) 100 08/04/20 02:15 152 21 123/103 (110) 100 08/04/20 02:04 111 20 104/36 (58) 100 08/04/20 02:02 88 19 55/38 (44) 98 08/04/20 02:00 63 17 63/28 (40) 85 08/04/20 01:45 119 19 82/38 (53) 88 08/04/20 01:30 135 19 101/49 (66) 89 08/04/20 01:15 65 18 86/55 (65) 85 08/04/20 01:00 165 19 112/52 (72) 95 08/04/20 00:45 148 26 134/99 (111) 99 08/04/20 00:30 130 23 103/48 (66) 96 08/04/20 00:15 123 30 125/58 (80) 93 08/04/20 00:11 114 19 40 08/04/20 00:03 107 107/48 08/04/20 00:00 100 08/04/20 00:00 99.0 100 18 90/51 (64) 98 08/04/20 00:00 Mechanical Ventilator 08/04/20 00:00 88 08/03/20 23:45 95 16 107/46 (66) 96 08/03/20 23:30 98 19 98/45 (62) 96 08/03/20 23:15 116 21 97/51 (66) 92 08/03/20 23:04 80/43 08/03/20 23:00 103 16 98/46 (63) 99 08/03/20 22:30 110 16 80/35 (50) 99 08/03/20 22:00 97 16 96/49 (65) 99 08/03/20 21:00 89 18 119/55 (76) 99 08/03/20 20:00 Mechanical Ventilator 08/03/20 20:00 99.0 88 17 108/55 (72) 99 08/03/20 20:00 88 08/03/20 19:19 94 22 40 08/03/20 19:00 95 15 128/47 (74) 99 08/03/20 18:00 103 19 118/46 (70) 97 08/03/20 17:32 110 140/62 08/03/20 17:00 105 18 134/56 (82) 100 08/03/20 16:00 96.8 95 28 94/35 (54) 100 08/03/20 16:00 40 08/03/20 16:00 Mechanical Ventilator 08/03/20 15:21 101 Intake and Output 08/03/20 08/04/20 19:00 07:00 Intake Total 500 ml 805.00 ml Output Total 100 ml 140 ml Balance 400 ml 665.00 ml IV Total 210 ml 505.00 ml Tube Feeding 240 ml 300 ml Other 50 ml Output Urine Total 0 ml Stool Total 100 ml 140 ml Laboratory Tests 08/03/20 17:46: POC Whole Blood Glucose [Pending] 08/03/20 21:19: POC Whole Blood Glucose [Pending] 08/03/20 23:58: POC Whole Blood Glucose 181H 08/04/20 03:45: White Blood Count 23.7*H, Red Blood Count 2.41L, Hemoglobin 9.6L, Hematocrit 24.8L, Mean Corpuscular Volume 103H, Mean Corpuscular Hemoglobin 39.7H, Mean Corpuscular Hemoglobin Concent 38.6H, Red Cell Distribution Width 15.9H, Platelet Count 162, Mean Platelet Volume 8.3, Neutrophils (%) (Auto) , Lymphocy cha (%) (Auto) , Monocytes (%) (Auto) , Eosinophils (%) (Auto) , Basophils (%) (Auto) , Differential Total Cells Counted 100, Neutrophils % (Manual) 93H, Lymphocytes % (Manual) 1L, Monocytes % (Manual) 2, Eosinophils % (Manual) 1, Basophils % (Manual) 0, Band Neutrophils 3, Platelet Estimate Adequate, Platelet Morphology Normal, Hypochromasia 1+, Anisocytosis 1+, Macrocytosis 1+, Sodium Level 137, Potassium Level 4.3, Chloride Level 96L, Carbon Dioxide Level 26, Anion Gap 15, Blood Urea Nitrogen 93H, Creatinine 4.8H, Estimat Glomerular Filtration Rate 9.0, Glucose Level 246#H, Calcium Level 9.2, Phosphorus Level 7.6H, Magnesium Level 2.0, Total Bilirubin 2.1H, Direct Bilirubin 1.5H, Aspa rtate Amino Transf (AST/SGOT) 45H, Alanine Aminotransferase (ALT/SGPT) 20, Alkaline Phosphatase 365H, C-Reactive Protein, Quantitative 39.0H, Pro-B-Type Natriuretic Peptide > [id number], Total Protein 6.9, Albumin 2.2L, Globulin 4.7, Albumin/Globulin Ratio 0.5L 08/04/20 06:25: POC Whole Blood Glucose 251H 08/04/20 09:25: POC Whole Blood Glucose [Pending] 08/04/20 12:43: POC Whole Blood Glucose [Pending] Height (Feet): 5 Height (Inches): 4.00 Weight (Pounds): 180 Assessment/Plan Problem List: (1) Pneumonia ICD Codes: J18.9 - Pneumonia, unspecified organism SNOMED: 665710641 (2) Hypertension ICD Codes: I10 - Essential (primary) hypertension SNOMED: 81498576 (3) Renal failure ICD Codes: N19 - Unspecified kidney failure SNOMED: 27708523 (4) Anemia in chronic kidney disease (CKD) ICD Codes: N18.9 - Chronic kidney disease, unspecified; D63.1 - Anemia in lunchroom attendant shimon kidney disease SNOMED: 626178288 (5) weakness (6) ESRD (end stage renal disease) ICD Codes: N18.6 - End stage renal disease SNOMED: 60919508 (7) Diabetic nephropathy with proteinuria ICD Codes: E11.21 - Type 2 diabetes mellitus with diabetic nephropathy SNOMED: 80424710, 897039693 Status: progressing, deteriorating Assessment/Plan: hypotensive on pressors deterioating intubated copd niddm esrd on hd resp failure niddm covid positive pna Makenna Daniel MD Aug 04, 2020 15:20
--- NOTE | 2020-08-04 16:40 | Nephrology Progress Note ---
Assessment/Plan Problem List: (1) Hypertensive kidney disease (2) ESRD (end stage renal disease) (3) Hyperkalemia (4) Suspected 2019 novel coronavirus infection (5) Acute respiratory failure Assessment 70-year-old female with end-stage renal disease Presented with volume overload and hyperkalemia Suspected COVID-19 virus infection Hypertensive emergency Diabetes mellitus CHF Plan August 04: Status quo. Will attempt dialysis tomorrow. Blood pressure borderline. Continue per consultants. August 03: Patient remains intubated on ventilator. Transfused yesterday. Leukocytosis worsened. Blood pressure 90 systolic. Will start on midodrine. Continue per consultants. Check lab tomorrow. August 02: Discussed with RN. Patient due for transfusion due to rectal bleed. No dialysis scheduled today. Optimize cardiac and pulmonary status. Dialysis as needed. August 01: Discussed with RN. Patient had dry ultrafiltration yesterday. Bryan rodriges will have dialysis and ultrafiltration today. Labs reviewed. Continue per consultants. July 31: Discussed with RN. Discussed with specialist physician. Chest x-ray still looks wet. Despite of having been dialyzed yesterday we arrange for dialysis and ultrafiltration today and probably tomorrow. Labs reviewed. Per orders. July 30: Patient on dialysis now. Tolerating well. Labs and medications reviewed. Continue per consultants. Hemoglobin mid sevens. On 10,000 units of Epogen. Transfusion if needed. July 29: Dialyzed yesterday. Due for dialysis tomorrow. Labs reviewed. Iron panel ordered. Epogen dose increased. Continue per consultants. Vitamin D level pending July 28: Patient is about to get started on dialysis. Labs reviewed. Blood pressure 90 to 100 systolic. Continue per consultants. July 27: Patient dialyzed July 26. Labs reviewed. Status quo. Dialysis again in a.m. July 26: Patient was dialyzed this morning. Labs reviewed. Remains intubated on ventilator. Full code. Tachycardic. Continue per consultants. Per orders. July 25: Patient was dialyzed yesterday. 2 L ultrafiltrate it. Discussed with eap clinician today. Attempts at weaning is being tried. Patient will be dialyzed again tomorrow. In view of ejection fraction of 40 to 45% and low blood pressure will adjust the blood pressure medication dosages and give 0.25 mg digoxin IV once. Continue to monitor renal parameters. July 24: Due for dialysis today. Labs reviewed. Low phosphorus replaced. Continue pulmonary support and ID management. Medication list reviewed. BP medication adjusted. July 23: Dialyzed yesterday. Labs reviewed. ABG noted. Patient hypoxic. Vent setting adjusted by eap clinician. Continue current care. Dialysis tomorrow. July 22: Patient on ventilator requiring positive end expiratory pressure. Labs reviewed. Blood sugar elevated. Levemir insulin ordered. Dialysis today. Continue per consultants. July 21: Patient now in ICU. Intubated on ventilator. Was dialyzed. Blood pressure well maintained. Has NG tube. Will start medication through NG tube and start feeding. Continue per consultants. Hemodialysis as needed. July 20: Patient seen and examined. Discussed with RN. Remains encephalo pathic. Poor ABG results. Patient at high risk at this stage. We will transfer patients to ICU for possible airway support. Patient due for dialysis today. Hyperkalemia probably secondary to acidosis. Will arrange for NG tube insertion and give medication through NG tube. July 19: Mental status appears slightly improved. Was dialyzed 2 days in a row. Blood pressure medication adjusted. Next dialysis tomorrow. Continue per consultants. July 18: Patient encephalopathic, was dialyzed yesterday and had 3 L removed. Will order dialysis again today. Continue per ID. Blood pressure medication adjusted. July 17: Stat hemodialysis ordered. Kayexalate for high potassium. Pulmonary support with oxygen or BiPAP as needed Blood pressure support with proper parameters Per orders Subjective ROS Limited/Unobtainable: Yes Objective Objective Last 24 Hour Vital Signs Date Time Temp Pulse Resp B/P (MAP) Pulse Ox O2 Delivery O2 Flow Rate FiO2 08/04/20 15:30 115 22 102/48 (66) 100 08/04/20 15:00 120 20 105/58 (74) 100 08/04/20 14:30 104 19 108/45 (66) 100 08/04/20 14:00 101 22 94/51 (65) 100 08/04/20 13:30 97 17 108/50 (69) 100 08/04/20 13:00 94 14 111/66 (81) 100 08/04/20 12:30 99 17 129/55 (79) 100 08/04/20 12:00 Mechanical Ventilator 08/04/20 12:00 100 08/04/20 12:00 96.4 99 20 125/61 (82) 100 08/04/20 11:45 100 19 118/73 (88) 100 08/04/20 11:30 106 08/04/20 11:30 105 21 118/73 (88) 100 08/04/20 11:15 105 18 154/68 (96) 100 08/04/20 11:00 104 20 144/70 (94) 100 08/04/20 10:45 99.4 107 20 170/73 (105) 100 08/04/20 10:30 103 20 177/65 (102) 100 08/04/20 10:15 104 17 160/63 (95) 100 08/04/20 10:00 106 21 159/67 (97) 100 08/04/20 09:46 152/61 08/04/20 09:45 107 21 137/58 (84) 100 08/04/20 09:30 112 20 134/47 (76) 100 08/04/20 09:00 96 23 98/45 (62) 100 08/04/20 08:30 102 27 90/31 (50) 100 08/04/20 08:00 100 08/04/20 08:00 100.4 132 22 120/56 (77) 100 08/04/20 08:00 Mechanical Ventilator 08/04/20 07:53 126 08/04/20 07:30 133 24 154/72 (99) 100 08/04/20 07:16 118 16 40 08/04/20 07:00 120 20 152/69 (96) 100 08/04/20 06:30 125 20 146/60 (88) 100 08/04/20 06:00 121 17 141/58 (85) 100 08/04/20 06:00 119 86/50 08/04/20 05:30 139 15 153/62 (92) 100 08/04/20 05:16 85/55 08/04/20 05:00 136 18 82/46 (58) 100 08/04/20 04:15 143 22 114/50 (71) 100 08/04/20 04:00 Mechanical Ventilator 08/04/20 04:00 142 08/04/20 04:00 136 25 134/57 (82) 100 08/04/20 04:00 100 08/04/20 04:00 99.9 136 25 134/57 (82) 100 08/04/20 03:45 126 18 133/59 (83) 100 08/04/20 03:30 120 18 86/50 (62) 100 08/04/20 03:15 130 18 123/56 (78) 100 08/04/20 03:08 140 18 181/64 (103) 100 08/04/20 03:00 128 19 163/66 (98) 100 08/04/20 02:45 125 19 161/63 (95) 100 08/04/20 02:39 121 19 169/64 (99) 100 08/04/20 02:15 152 21 123/103 (110) 100 08/04/20 02:04 111 20 104/36 (58) 100 08/04/20 02:02 88 19 55/38 (44) 98 08/04/20 02:00 63 17 63/28 (40) 85 08/04/20 01:45 119 19 82/38 (53) 88 08/04/20 01:30 135 19 101/49 (66) 89 08/04/20 01:15 65 18 86/55 (65) 85 08/04/20 01:00 165 19 112/52 (72) 95 08/04/20 00:45 148 26 134/99 (111) 99 08/04/20 00:30 130 23 103/48 (66) 96 08/04/20 00:15 123 30 125/58 (80) 93 08/04/20 00:11 114 19 40 08/04/20 00:03 107 107/48 08/04/20 00:00 100 08/04/20 00:00 99.0 100 18 90/51 (64) 98 08/04/20 00:00 Mechanical Ventilator 08/04/20 00:00 88 08/03/20 23:45 95 16 107/46 (66) 96 08/03/20 23:30 98 19 98/45 (62) 96 08/03/20 23:15 116 21 97/51 (66) 92 08/03/20 23:04 80/43 08/03/20 23:00 103 16 98/46 (63) 99 08/03/20 22:30 110 16 80/35 (50) 99 08/03/20 22:00 97 16 96/49 (65) 99 08/03/20 21:00 89 18 119/55 (76) 99 08/03/20 20:00 Mechanical Ventilator 08/03/20 20:00 99.0 88 17 108/55 (72) 99 08/03/20 20:00 88 08/03/20 19:19 94 22 40 08/03/20 19:00 95 15 128/47 (74) 99 08/03/20 18:00 103 19 118/46 (70) 97 08/03/20 17:32 110 140/62 08/03/20 17:00 105 18 134/56 (82) 100 Intake and Output 08/03/20 08/04/20 19:00 07:00 Intake Total 500 ml 805.00 ml Output Total 100 ml 140 ml Balance 400 ml 665.00 ml IV Total 210 ml 505.00 ml Tube Feeding 240 ml 300 ml Other 50 ml Output Urine Total 0 ml Stool Total 100 ml 140 ml Laboratory Tests 08/03/20 17:46: POC Whole Blood Glucose [Pending] 08/03/20 21:19: POC Whole Blood Glucose [Pending] 08/03/20 23:58: POC Whole Blood Glucose 181H 08/04/20 03:45: White Blood Count 23.7*H, Red Blood Count 2.41L, Hemoglobin 9.6L, Hematocrit 24.8L, Mean Corpuscular Volume 103H, Mean Corpuscular Hemoglobin 39.7H, Mean Corpuscular Hemoglobin Concent 38.6H, Red Cell Distribution Width 15.9H, Platelet Count 162, Mean Platelet Volume 8.3, Neutrophils (%) (Auto) , Lymphocytes (%) (Auto) , Monocytes (%) (Auto) , Eosinophils (%) (Auto) , Basophils (%) (Auto) , Differential Total Cells Counted 100, Neutrophils % (Manual) 93H, Lymphocytes % (Manual) 1L, Monocytes % (Manual) 2, Eosinophils % (Manual) 1, Basophils % (Manual) 0, Band Neutrophils 3, Platelet Estimate Adequate, Platelet Morphology Normal, Hypochromasia 1+, Anisocytosis 1+, Macrocytosis 1+, Sodium Level 137, Potassium Level 4.3, Chloride Level 96L, Carbon Dioxide Level 26, Anion Gap 15, Blood Urea Nitrogen 93H, Creatinine 4.8H, Estimat Glomerular Filtration Rate 9.0, Glucose Level 246#H, Calcium Level 9.2, Phosphorus Level 7.6H, Magnesium Level 2.0, Total Bilirubin 2.1H, Direct Bilirubin 1.5H, Aspartate Amino Transf (AST/SGOT) 45H, Alanine Aminotransferase (ALT/SGPT) 20, Alkaline Phosphatase 365H, C-Reactive Protein, Quantitative 39.0H , Pro-B-Type Natriuretic Peptide > 72138U, Total Protein 6.9, Albumin 2.2L, Globulin 4.7, Albumin/Globulin Ratio 0.5L 08/04/20 06:25: POC Whole Blood Glucose 251H 08/04/20 09:25: POC Whole Blood Glucose [Pending] 08/04/20 12:43: POC Whole Blood Glucose [Pending] Height (Feet): 5 Height (Inches): 4.00 Weight (Pounds): 180 General Appearance: no apparent distress EENT: other - Intubated on ventilator Cardiovascular: tachycardia Respiratory/Chest: decreased breath sounds Abdomen: distended Francis Falk MD Aug 04, 2020 16:40
--- NOTE | 2020-08-04 17:00 | NUR ---
NURSE NOTES: Cleaned patient for small amount of leaked dark brown loose BM. Temp 97.9 with cooling blanket on. Turned and repositioned patient. Will keep Levo at 2mcg/min for BP 110/48.
--- NOTE | 2020-08-04 18:19 | NUR ---
NURSE NOTES: BS 61. D50 25ml IVP given as per protocol. Will recheck BS later.
--- NOTE | 2020-08-04 18:40 | NUR ---
NURSE NOTES: BS rechecked 168. Will continue to monitor.
--- NOTE | 2020-08-04 19:30 | NUR ---
NURSE NOTES: Received pt with eyes close, respond to pain stimuli, currently on Levophed drip at 2 mcg/min, sbp>90. Afib on the monitor 95-100/min, orally intubated on ac mode. an HD pt. Left upper arm AV shunt with good bruit, Tolerated fdg Vital AF 1.2 at 50ml/hr with 1o ml residuals. HOB kept elevated. on aspiration precaution., Pt with pressure sores sacral area covered with optifoam clean and dry . Repositioned to sides to avoid developing more pressure sores. will continue to monitor.
--- NOTE | 2020-08-04 19:51 | NUR ---
NURSE HAND-OFF REPORT: Latest Vital Signs: Temperature 97.9 , Pulse 101 , B/P 115 /42 , Respiratory Rate 23 , O2 SAT 94 , Nasal Cannula, O2 Flow Rate 3.0 . Vital Sign Comment: EKG Rhythm: Atrial Fibrillation Rhythm change?: N MD Notified?: MD Response: Latest Elizabeth Fall Score: 60 Fall Risk: High Risk Safety Measures: Call light Within Reach, Bed Alarm Zone 1, Side Rails Side Rails x3, Bed position Low and Locked. Fall Precautions: Door Sign Report given to SIDNEY Terrazas.
[2020-08-04] MEDS: Dyna-Hex 2% Top Sol 2oz TOPIC SCH (20:01)
--- NOTE | 2020-08-04 20:05 | Cardiac Electrophysiology PN ---
Assessment/Plan Assessment/Plan 1. Accelerated HTN. On Lopressor 25 po q 6hr and p.r.n.clonidine. EF 40- 45% Was Hypotensive last night and was started on Levo 20 that is down to 2 Mcg 2. Atrial fib with RVR with HR up to 150s. On Lopressor 25 q 6 hr ( If BP allows) 3. ESRD, on hemodialysis. 4. Hyponatremia, sodium 129. Fluid restriction per Dr. Falk. 5. Volume overload, BNP of more than 35,000 and EF 40-45%. On HD 6. Covid PNA and resp failure on the Vent with 100% Fio2 and PEEP 10 Covid positive 07/11 and 07/17 7. Rectal bleeding. S/P PRBC . RAMONA Gi GER RN Subjective Subjective Confused in restraints. In Covid isolation. Intubated on 100% Fio2 and PEEP 10 In atrial fib in 90s. S/P PRBC for rectal bleeding. BP dropped to 70s overnight and was started on Levo 20 mcg but now down to 2 mcg Objective Last 24 Hour Vital Signs Date Time Temp Pulse Resp B/P (MAP) Pulse Ox O2 Delivery O2 Flow Rate FiO2 08/04/20 19:00 101 23 115/42 (66) 94 08/04/20 18:44 101 19 96 Mechanical Ventilator 100 08/04/20 18:42 100 19 100 08/04/20 18:30 97.9 109 24 109/53 (71) 100 08/04/20 18:21 121 130/54 08/04/20 18:00 113 20 108/61 (77) 100 08/04/20 17:30 119 20 110/48 (68) 100 08/04/20 17:00 119 20 110/48 (68) 100 08/04/20 16:30 100.5 131 20 100/51 (67) 100 08/04/20 16:00 100 08/04/20 16:00 Mechanical Ventilator 08/04/20 16:00 135 21 95/44 (61) 100 08/04/20 15:55 115 23 40 08/04/20 15:30 115 22 102/48 (66) 100 08/04/20 15:25 133 08/04/20 15:00 120 20 105/58 (74) 100 08/04/20 14:30 104 19 108/45 (66) 100 08/04/20 14:00 101 22 94/51 (65) 100 08/04/20 13:30 97 17 108/50 (69) 100 08/04/20 13:00 94 14 111/66 (81) 100 08/04/20 12:30 99 17 129/55 (79) 100 08/04/20 12:00 Mechanical Ventilator 08/04/20 12:00 100 08/04/20 12:00 96.4 99 20 125/61 (82) 100 08/04/20 11:45 100 19 118/73 (88) 100 08/04/20 11:30 106 08/04/20 11:30 105 21 118/73 (88) 100 08/04/20 11:15 105 18 154/68 (96) 100 08/04/20 11:00 104 20 144/70 (94) 100 08/04/20 10:45 99.4 107 20 170/73 (105) 100 08/04/20 10:30 103 20 177/65 (102) 100 08/04/20 10:15 104 17 160/63 (95) 100 08/04/20 10:00 106 21 159/67 (97) 100 08/04/20 09:46 152/61 08/04/20 09:45 107 21 137/58 (84) 100 08/04/20 09:30 112 20 134/47 (76) 100 08/04/20 09:00 96 23 98/45 (62) 100 08/04/20 08:30 102 27 90/31 (50) 100 08/04/20 08:00 100 08/04/20 08:00 100.4 132 22 120/56 (77) 100 08/04/20 08:00 Mechanical Ventilator 08/04/20 07:53 126 08/04/20 07:30 133 24 154/72 (99) 100 08/04/20 07:16 118 16 40 08/04/20 07:00 120 20 152/69 (96) 100 08/04/20 06:30 125 20 146/60 (88) 100 08/04/20 06:00 121 17 141/58 (85) 100 08/04/20 06:00 119 86/50 08/04/20 05:30 139 15 153/62 (92) 100 08/04/20 05:16 85/55 08/04/20 05:00 136 18 82/46 (58) 100 08/04/20 04:15 143 22 114/50 (71) 100 08/04/20 04:00 Mechanical Ventilator 08/04/20 04:00 142 08/04/20 04:00 136 25 134/57 (82) 100 08/04/20 04:00 100 08/04/20 04:00 99.9 136 25 134/57 (82) 100 08/04/20 03:45 126 18 133/59 (83) 100 08/04/20 03:30 120 18 86/50 (62) 100 08/04/20 03:15 130 18 123/56 (78) 100 08/04/20 03:08 140 18 181/64 (103) 100 08/04/20 03:00 128 19 163/66 (98) 100 08/04/20 02:45 125 19 161/63 (95) 100 08/04/20 02:39 121 19 169/64 (99) 100 08/04/20 02:15 152 21 123/103 (110) 100 08/04/20 02:04 111 20 104/36 (58) 100 08/04/20 02:02 88 19 55/38 (44) 98 08/04/20 02:00 63 17 63/28 (40) 85 08/04/20 01:45 119 19 82/38 (53) 88 08/04/20 01:30 135 19 101/49 (66) 89 08/04/20 01:15 65 18 86/55 (65) 85 08/04/20 01:00 165 19 112/52 (72) 95 08/04/20 00:45 148 26 134/99 (111) 99 08/04/20 00:30 130 23 103/48 (66) 96 08/04/20 00:15 123 30 125/58 (80) 93 08/04/20 00:11 114 19 40 08/04/20 00:03 107 107/48 08/04/20 00:00 100 08/04/20 00:00 99.0 100 18 90/51 (64) 98 08/04/20 00:00 Mechanical Ventilator 08/04/20 00:00 88 08/03/20 23:45 95 16 107/46 (66) 96 08/03/20 23:30 98 19 98/45 (62) 96 08/03/20 23:15 116 21 97/51 (66) 92 08/03/20 23:04 80/43 08/03/20 23:00 103 16 98/46 (63) 99 08/03/20 22:30 110 16 80/35 (50) 99 08/03/20 22:00 97 16 96/49 (65) 99 08/03/20 21:00 89 18 119/55 (76) 99 Intake and Output 08/03/20 08/04/20 19:00 07:00 Intake Total 500 ml 805.00 ml Output Total 100 ml 140 ml Balance 400 ml 665.00 ml IV Total 210 ml 505.00 ml Tube Feeding 240 ml 300 ml Other 50 ml Output Urine Total 0 ml Stool Total 100 ml 140 ml Laboratory Tests Test 08/03/20 21:19 08/03/20 23:58 08/04/20 03:45 08/04/20 06:25 POC Whole Blood Glucose Pending 181 MG/DL (74-106) H 251 MG/DL (74-106) H White Blood Count 23.7 K/UL (4.8-10.8) *H Red Blood Count 2.41 M/UL (4.20-5.40) L Hemoglobin 9.6 G/DL (12.0-16.0) L Hematocrit 24.8 % (37.0-47.0) L Mean Corpuscular Volume 103 FL (80-99) H Mean Corpuscular Hemoglobin 39.7 PG (27.0-31.0) H Mean Corpuscular Hemoglobin Concent 38.6 G/DL (32.0-36.0) H Red Cell Distribution Width 15.9 % (11.6-14.8) H Platelet Count 162 K/UL (150-450) Mean Platelet Volume 8.3 FL (6.5-10.1) Neutrophils (%) (Auto) % (45.0-75.0) Lymphocytes (%) (Auto) % (20.0-45.0) Monocytes (%) (Auto) % (1.0-10.0) Eosinophils (%) (Auto) % (0.0-3.0) Basophils (%) (Auto) % (0.0-2.0) Differential Total Cells Counted 100 Neutrophils % (Manual) 93 % (45-75) H Lymphocytes % (Manual) 1 % (20-45) L Monocytes % (Manual) 2 % (1-10) Eosinophils % (Manual) 1 % (0-3) Basophils % (Manual) 0 % (0-2) Band Neutrophils 3 % (0-8) Platelet Estimate Adequate Platelet Morphology Normal Hypochromasia 1+ Anisocytosis 1+ Macrocytosis 1+ Sodium Level 137 MMOL/L (136-145) Potassium Level 4.3 MMOL/L (3.5-5.1) Chloride Level 96 MMOL/L (98-107) L Carbon Dioxide Level 26 MMOL/L (21-32) Anion Gap 15 mmol/L (5-15) Blood Urea Nitrogen 93 mg/dL (7-18) H Creatinine 4.8 MG/DL (0.55-1.30) H Estimat Glomerular Filtration Rate 9.0 mL/min (>60) Glucose Level 246 MG/DL (74-106) #H Calcium Level 9.2 MG/DL (8.5-10.1) Phosphorus Level 7.6 MG/DL (2.5-4.9) H Magnesium Level 2.0 MG/DL (1.8-2.4) Total Bilirubin 2.1 MG/DL (0.2-1.0) H Direct Bilirubin 1.5 MG/DL (0.0-0.3) H Aspartate Amino Transf (AST/SGOT) 45 U/L (15-37) H Alanine Aminotransferase (ALT/SGPT) 20 U/L (12-78) Alkaline Phosphatase 365 U/L (46-116) H C-Reactive Protein, Quantitative 39.0 mg/dL (0.00-0.90) H Pro-B-Type Natriuretic Peptide > 49050 pg/mL (0-125) H Total Protein 6.9 G/DL (6.4-8.2) Albumin 2.2 G/DL (3.4-5.0) L Globulin 4.7 g/dL Albumin/Globulin Ratio 0.5 (1.0-2.7) L Test 08/04/20 09:25 08/04/20 12:43 08/04/20 18:09 08/04/20 18:10 POC Whole Blood Glucose Pending Pending 63 MG/DL (74-106) L Pending Test 08/04/20 18:48 POC Whole Blood Glucose Pending Microbiology Date/Time Source Procedure Growth Status 08/03/20 18:15 Sputum Gram Stain - Final Resulted 08/03/20 18:15 Sputum Sputum Culture Pending Resulted Objective HEAD AND NECK: Orally intubated LUNGS: Coarse rhonchi. CARDIOVASCULAR: Regular S1 and S2 with no gallop or murmur. ABDOMEN: Soft. EXTREMITIES: No pitting edema. Zev Gatica MD Aug 04, 2020 20:05
--- NOTE | 2020-08-04 21:30 | NUR ---
NURSE NOTES: repositioned to sides . oicture taken was done with pts pressure sores and Tx applied.
[2020-08-05] VITALS (45 sets, daily range): BP systolic 88–147; BP diastolic 46–75
--- NOTE | 2020-08-05 | NUR ---
NURSE NOTES: still on afib but controlled rate. Bp still supported with Levophed drip at 2mcg/min.
--- NOTE | 2020-08-05 02:00 | NUR ---
NURSE NOTES: Complete bed bath with bed changed was done,
[2020-08-05] MEDS: Piperacillin/Tazobactam 2.25 GM in D5W 55 ML IV SCH ×3 (02:35→17:52)
--- NOTE | 2020-08-05 04:00 | NUR ---
NURSE NOTES: Levophed stopped at o400. SBP >199.
[2020-08-05] MEDS: Docusate 100mg/10ml Liq NG SCH ×2 (05:43→13:46)
[2020-08-05] MEDS: Midodrine 10mg tab ORAL SCH ×3 (05:44→22:54)
--- NOTE | 2020-08-05 06:00 | NUR ---
NURSE NOTES: Pt desat to 80s. Fio2 increase to 90%
--- NOTE | 2020-08-05 06:39 | NUR ---
NURSE NOTES: 02 sat 98%,
[2020-08-05 06:59] LABS: HEMATOCRIT 25.2 % (37.0-47.0); HEMOGLOBIN 9.1 G/DL (12.0-16.0); MEAN CORPUSCULAR VOLUME 100 FL (80-99); PLATELET COUNT 110 K/UL (150-450); RED BLOOD COUNT 2.52 M/UL (4.20-5.40); WHITE BLOOD COUNT 13.7 K/UL (4.8-10.8)
--- NOTE | 2020-08-05 07:21 | NUR ---
NURSE HAND-OFF REPORT: Latest Vital Signs: Temperature 99.0 , Pulse 95 , B/P 111 /50 , Respiratory Rate 22 , O2 SAT 89 , Nasal Cannula, O2 Flow Rate 3.0 . Vital Sign Comment: EKG Rhythm: Atrial Fibrillation Rhythm change?: N Notified?: Roxanne Gatica MD Response: Latest Elizabeth Fall Score: 60 Fall Risk: High Risk Safety Measures: Call light Within Reach, Bed Alarm Zone 1, Side Rails Side Rails x3, Bed position Low and Locked. Fall Precautions: Door Sign Report given to Kerry LITTLE.
[2020-08-05] MEDS: NovoLOG Insulin Flexpen SUBQ SCH ×5 (07:29→23:56)
--- NOTE | 2020-08-05 07:30 | NUR ---
NURSE NOTES: Report received from SIDNEY Terrazas. Patient is sleeping. Lethargic, arousable to pain. Unable to follow commands. Afib on vehicle monitor technician with HR 100-110's. ETT 7.5/24cm at lip line. AC 16, TV 500, FiO2 90%, P 10. O2 sat 99%. OGT in place receiving Vital AF 1.2 at 50cc/hr. Pt is Anuric. Rectal tube in place draining dark brown loose BM to gravity. SHAMEKA AV shunt for HD noted. Bruit and thrill present. Pt scheduled to receive dialysis today. Right femoral TLC patent and asymptomatic. Bed locked and in lowest position. Side rails up x3. Will resume plan of care.
[2020-08-05 07:51] LABS: ALBUMIN 1.9 G/DL (3.4-5.0); ALBUMIN/GLOBULIN RATIO 0.4 (1.0-2.7); BILIRUBIN,DIRECT 1.4 MG/DL (0.0-0.3); BILIRUBIN,TOTAL 1.8 MG/DL (0.2-1.0); CALCIUM 8.9 MG/DL (8.5-10.1); CREATININE 5.5 MG/DL (0.55-1.30); POTASSIUM 4.1 MMOL/L (3.5-5.1)
--- NOTE | 2020-08-05 09:00 | NUR ---
NURSE NOTES: Oral care done. Pt turned and repositioned.
--- NOTE | 2020-08-05 10:00 | NUR ---
NURSE NOTES: Still awaiting pharmacy to restock scheduled 09[facility]
[2020-08-05] MEDS: Pantoprazole Inj IVP SCH ×2 (10:14→20:43)
[2020-08-05] MEDS: Levemir Flexpen SUBQ SCH ×2 (11:28→20:44)
[2020-08-05] MEDS: Vitamin D 1000 units Tab ORAL SCH (11:29)
--- NOTE | 2020-08-05 12:08 | Nephrology Progress Note ---
Assessment/Plan Problem List: (1) Hypertensive kidney disease (2) ESRD (end stage renal disease) (3) Hyperkalemia (4) Suspected 2019 novel coronavirus infection (5) Acute respiratory failure Assessment 70-year-old female with end-stage renal disease Presented with volume overload and hyperkalemia Suspected COVID-19 virus infection Hypertensive emergency Diabetes mellitus CHF Plan August 05: Labs reviewed. Due for dialysis today. Will aim to keep the blood pressure over 95 systolic. Medication list reviewed. Albumin bolus given August 04: Status quo. Will attempt dialysis tomorrow. Blood pressure borderline. Continue per consultants. August 03: Patient remains intubated on ventilator. Transfused yesterday. Leukocytosis worsened. Blood pressure 90 systolic. Will start on midodrine. Continue per consultants. Check lab tomorrow. August 02: Discussed with RN. Patient due for transfusion due to rectal bleed. No dialysis scheduled today. Optimize cardiac and pulmonary status. Dialysis as needed. August 01: Discussed with RN. Patient had dry ultrafiltration yesterday. Patient will have dialysis and ultrafiltration today. Labs reviewed. Continue per consultants. July 31: Discussed with RN. Discussed with business specialist. Chest x-ray still looks wet. Despite of having been dialyzed yesterday we arrange for dialysis and ultrafiltration today and probably tomorrow. Labs reviewed. Per orders. July 30: Patient on dialysis now. Tolerating well. Labs and medications reviewed. Continue per consultants. Hemoglobin mid sevens. On 10,000 units of Epogen. Transfusion if needed. July 29: Dialyzed yesterday. Due for dialysis tomorrow. Labs reviewed. Iron panel ordered. Epogen dose increased. Continue per consultants. Vitamin D level pending July 28: Patient is about to get started on dialysis. Labs reviewed. Blood pressure 90 to 100 systolic. Continue per consultants. July 27: Patient dialyzed July 26. Labs reviewed. Status quo. Dialysis again in a.m. July 26: Patient was dialyzed this morning. Labs reviewed. Remains intubated on ventilator. Full code. Tachycardic. Continue per consultants. Per orders. July 25: Patient was dialyzed yesterday. 2 L ultrafiltrate it. Discussed with division sergeant today. Attempts at weaning is being tried. Patient will be dialyzed again tomorrow. In view of ejection fraction of 40 to 45% and low blood pressure will adjust the blood pressure medication dosages and give 0.25 mg digoxin IV once. Continue to monitor renal parameters. July 24: Due for dialysis today. Labs reviewed. Low phosphorus replaced. Continue pulmonary support and ID management. Medication list reviewed. BP medication adjusted. July 23: Dialyzed yesterday. Labs reviewed. ABG noted. Patient hypoxic. Vent setting adjusted by division sergeant. Continue current care. Dialysis tomorrow. July 22: Patient on ventilator requiring positive end expiratory pressure. Labs reviewed. Blood sugar elevated. Levemir insulin ordered. Dialysis today. Continue per consultants. July 21: Patient now in ICU. Intubated on ventilator. Was dialyzed. Blood pressure well maintained. Has NG tube. Will start medication through NG tube and start feeding. Continue per consultants. Hemodialysis as needed. July 20: Patient seen and examined. Discussed with RN. Remains encephalopathic. Poor ABG results. Patient at high risk at this stage. We will transfer patients to ICU for possible airway support. Patient due for dialysis today. Hyperkalemia probably secondary to acidosis. Will arrange for NG tube insertion and give medication through NG tube. July 19: Mental status appears slightly improved. Was dialyzed 2 days in a row. Blood pressure medication adjusted. Next dialysis tomorrow. Continue per consultants. July 18: Patient encephalopathic, was dialyzed yesterday and had 3 L removed. Will order dialysis again today. Continue per ID. Blood pressure medication adjusted. July 17: Stat hemodialysis ordered. Kayexalate for high potassium. Pulmonary support with oxygen or BiPAP as needed Blood pressure support with proper parameters Per orders Subjective ROS Limited/Unobtainable: Yes Objective Objective Last 24 Hour Vital Signs Date Time Temp Pulse Resp B/P (MAP) Pulse Ox O2 Delivery O2 Flow Rate FiO2 08/05/20 11:00 80 08/05/20 09:51 95/51 08/05/20 09:00 90 08/05/20 08:00 108 08/05/20 08:00 Mechanical Ventilator 08/05/20 07:30 100 14 114/55 (74) 98 08/05/20 07:00 101 15 105/57 (73) 98 08/05/20 06:00 99.0 95 22 111/50 (70) 89 08/05/20 05:44 108 151/68 08/05/20 05:00 114 22 129/52 (77) 89 08/05/20 05:00 109 22 140/52 (81) 89 08/05/20 04:30 108 22 126/58 (80) 97 08/05/20 04:00 60 08/05/20 04:00 101 08/05/20 04:00 102.0 108 23 103/50 (67) 96 08/05/20 04:00 Mechanical Ventilator 08/05/20 03:30 107 23 116/56 (76) 96 08/05/20 03:00 112 21 107/56 (73) 98 08/05/20 02:30 117 24 103/52 (69) 97 08/05/20 02:00 118 31 108/54 (72) 98 08/05/20 01:30 117 27 103/51 (68) 97 08/05/20 01:01 124 20 60 08/05/20 01:00 122 32 107/50 (69) 100 08/05/20 00:45 116 26 104/51 (68) 100 08/05/20 00:30 115 26 92/46 (61) 100 08/05/20 00:02 124 101/46 08/05/20 00:00 118 08/05/20 00:00 98.8 124 31 105/50 (68) 100 08/05/20 00:00 Mechanical Ventilator 08/05/20 00:00 60 08/04/20 23:30 126 22 101/45 (63) 100 08/04/20 23:00 124 12 98/47 (64) 100 08/04/20 22:30 115 28 102/50 (67) 100 08/04/20 22:15 112 24 97/44 (61) 100 08/04/20 22:00 113 17 96/43 (60) 100 08/04/20 21:45 115 23 106/47 (66) 100 08/04/20 21:30 112 26 94/46 (62) 100 08/04/20 21:15 103 24 93/43 (60) 100 08/04/20 21:00 101 19 80/45 (57) 100 08/04/20 20:45 98 20 74/52 (59) 100 08/04/20 20:30 100 19 89/45 (60) 100 08/04/20 20:15 106 27 96/45 (62) 100 08/04/20 20:00 Mechanical Ventilator 08/04/20 20:00 101 18 97/44 (61) 100 08/04/20 20:00 60 08/04/20 20:00 101 08/04/20 19:30 104 16 110/52 (71) 100 08/04/20 19:00 101 23 115/42 (66) 94 08/04/20 18:44 101 19 96 Mechanical Ventilator 100 08/04/20 18:42 100 19 100 08/04/20 18:30 97.9 109 24 109/53 (71) 100 08/04/20 18:21 121 130/54 08/04/20 18:00 113 20 108/61 (77) 100 08/04/20 17:30 119 20 110/48 (68) 100 08/04/20 17:00 119 20 110/48 (68) 100 08/04/20 16:30 100.5 131 20 100/51 (67) 100 08/04/20 16:00 100 08/04/20 16:00 Mechanical Ventilator 08/04/20 16:00 135 21 95/44 (61) 100 08/04/20 15:55 115 23 100 08/04/20 15:30 115 22 102/48 (66) 100 08/04/20 15:25 133 08/04/20 15:00 120 20 105/58 (74) 100 08/04/20 14:30 104 19 108/45 (66) 100 08/04/20 14:00 101 22 94/51 (65) 100 08/04/20 13:30 97 17 108/50 (69) 100 08/04/20 13:00 94 14 111/66 (81) 100 08/04/20 12:30 99 17 129/55 (79) 100 Intake and Output 08/04/20 08/05/20 19:00 07:00 Intake Total 1046.25 ml 795.0 ml Output Total 50 ml 200 ml Balance 996.25 ml 595.0 ml Free Water 30 ml IV Total 396.25 ml 115.0 ml Tube Feeding 500 ml 650 ml Other 150 ml Stool Total 50 ml 200 ml Laboratory Tests 08/04/20 12:43: POC Whole Blood Glucose [Pending] 08/04/20 18:09: POC Whole Blood Glucose 63L 08/04/20 18:10: POC Whole Blood Glucose [Pending] 08/04/20 18:48: POC Whole Blood Glucose [Pending] 08/04/20 21:09: POC Whole Blood Glucose 117H 08/05/20 00:09: POC Whole Blood Glucose 117H 08/05/20 05:00: White Blood Count 13.7H, Red Blood Count 2.52L, Hemoglobin 9.1L, Hematocrit 25.2L, Mean Corpuscular Volume 100H, Mean Corpuscular Hemoglobin 36.2H, Mean Corpuscular Hemoglobin Concent 36.2H, Red Cell Distribution Width 17.0H, Platelet Count 110L, Mean Platelet Volume 8.3, Neutrophils (%) (Auto) , Lymphocytes (%) (Auto) , Monocytes (%) (Auto) , Eosinophils (%) (Auto) , Basophils (%) (Auto) , Differential Total Cells Counted 100, Neutrophils % (Manual) 78H, Lymphocytes % (Manual) 2L, Monocytes % (Manual) 6, Eosinophils % (Manual) 1, Basophils % (Manual) 0, Band Neutrophils 13H, Platelet Estimate DecreasedL, Platelet Morphology Normal, Hypochromasia , Anisocytosis 1+, Macrocytosis 1+, Sodium Level 137, Potassium Level 4.1, Chloride Level 97L, Carbon Dioxide Level 25, Anion Gap 15, Blood Urea Nitrogen 115H, Creatinine 5.5H , Estimat Glomerular Filtration Rate 7.6, Glucose Level 152H, Calcium Level 8.9, Phosphorus Level 6.0H, Magnesium Level 1.9, Total Bilirubin 1.8H, Direct Bilirubin 1.4H, Aspartate Amino Transf (AST/SGOT) 46H, Alanine Aminotransferase (ALT/SGPT) 18, Alkaline Phosphatase 347H, C-Reactive Protein, Quantitative 49.3H , Total Protein 6.5, Albumin 1.9L, Globulin 4.6, Albumin/Globulin Ratio 0.4L 08/05/20 05:26: POC Whole Blood Glucose 157H 08/05/20 11:20: POC Whole Blood Glucose 152H Height (Feet): 5 Height (Inches): 4.00 Weight (Pounds): 180 General Appearance: no apparent distress EENT: other - On mechanical ventilator Cardiovascular: tachycardia Respiratory/Chest: decreased breath sounds Abdomen: distended Francis Falk MD Aug 05, 2020 12:08
--- NOTE | 2020-08-05 12:30 | NUR ---
NURSE NOTES: Dr Leonard at bedside assessing pt. Updated him on pt's current condition. No new orders given at this time.
--- NOTE | 2020-08-05 12:39 | Hematology/Onc Progress Note ---
Assessment/Plan Assessment/Plan Assessment/Plan 1. Pancytopenia with hx anemia due to underlying chronic disease. Have reviewed prior workup, ferritin is >1000, covid19++++ --> Continue to closely monitor. --> Transfuse if hgb <7 --> ferritin is >1000 --> give epogen, has been started 3x a week --> as per renal --> monitor for gi bleed, gi consulted --> hgb trend 7.8-->9.3->8.9->>11-->9.5->8.9->8->8.2-->7.6-->6.8->10--> 9.1 --> plt 42-->50-->65-->104-->109-->176 --> ABX zosyn --> smear has been reviewed --> hep and hiv neg -> prbc 08/02 2. LEUKOCYTOSIS now, prior was Leukopenia likely reactive process v infection covid19++++ --> hepatitis and hiv prior negative --> neutropenic precautions if ANC <1500 --> trending stable --> imaging reviewed and no hsm / cirrhosis noted --> wbc 2.7-->3.6->>>2->5-->8-->17->12-->11-->24--> 13.7 --> increase in wbc due to steriods --> ANC goal >1500 3. End-stage renal disease, on hemodialysis three times a week. --> renal consulted --> continue hd 4. History of coronary artery disease. --> cards reviewed --> diuresis prn 5. History of anemia due to low B12, low iron --> b12 is currently within normal limits --> reobtain q6mo 6. Dizziness and unsteady gait 7. Covid 19 --> rx per id 8. DVt ppsx with SCDs Greatly appreciate consultation and Selvin RN Subjective Allergies: Coded Allergies: No Known Allergies (Unverified , 05/12/17) Subjective Subjective: 07/19 meds noted, s/p hd, bp has improved, no bleeding, labs reviewed 07/20 labs are noted, no bleeding, meds reviewed, no major changes, hgb 9.5 07/22 remains in the icu, no bleeding, meds reviewed, on nc 07/23 labs noted, no bleeding, in icu, hgb 8.7, plt 90 07/24 is intubated, hgb 11, no bleeding, plt are better, meds reviewed 07/25 remains on zosyn, labs are noted, no bleeding, icu, meds ntoed, s/p hd yesterday with renal 07/26 seen at bedside with Justo Toro, doing HD today, is in the icu, have ordered epo 07/27 black tarry stools overnight, no bleeding, labs reviewed, plt better 07/29 restraints, is agitated, no bleeding, hgb 8.2, improved s/p transfusion 07/30 restraints, is for rectal tube insertion today for diarrhea 07/31 hd was done yesterday, labs reviewed, meds noted, for duplex today then scds 08/01 hd as needed, did have fever overnight is on zosyn 08/02 labs noted, pending cbc for the am, 1 unit prbc is ordered, dw Justo Cazares, levo lower 08/03 remains in icu, restraints, abx, wbc 24, hgb 10 1: lethargic not following commands, no distress 08/05: labs reviewed hgb 9.1 remains lethargic. Objective Objective Current Medications Medications (Trade) Dose Ordered Sig/Toya Route PRN Reason Start Time Stop Time Status Last Admin Dose Admin Acetaminophen (Tylenol) 650 mg EVERY 6 HOURS PRN NG Mild Pain (Pain Scale 1-3) 07/29/20 09:05 08/28/20 09:04 08/01/20 20:44 Acetaminophen (Tylenol) 650 mg EVERY 6 HOURS PRN NG Temp >100.5 07/29/20 09:15 08/28/20 09:14 08/02/20 08:17 Albumin Human 500 ml @ 0 mls/hr Q0M IV 08/05/20 12:30 08/05/20 14:30 Barium Sulfate (Readi-Cat 2) 450 ml NOW PRN ORAL Radiology Procedure 08/03/20 20:00 08/05/20 19:59 Chlorhexidine Gluconate (Yessi-Hex 2%) 1 applic DAILY@1999 TOPIC 07/21/20 20:00 10/19/20 19:59 08/04/20 20:01 Clonidine HCl (Catapres Tab) 0.1 mg Q4H PRN NG bp over 165 syst 07/21/20 12:00 10/14/20 22:44 Dextrose (Dextrose 50%) 25 ml Q30M PRN IV Hypoglycemia 07/22/20 08:00 10/20/20 07:59 08/04/20 18:19 Dextrose (Dextrose 50%) 50 ml Q30M PRN IV Hypoglycemia 07/22/20 08:00 10/20/20 07:59 Docusate Sodium (Colace) 100 mg EVERY 8 HOURS NG 07/29/20 22:00 08/20/20 12:59 08/03/20 06:00 Epoetin Panchito (Epoetin Panchito(ESRD on dialysis)) 2,000 unit THU- SUBQ 08/03/20 21:00 11/01/20 20:59 08/03/20 21:16 Epoetin Panchito (Epoetin Panchito(ESRD on dialysis)) 8,000 unit SUBQ 08/03/20 21:00 11/01/20 20:59 08/03/20 21:16 Haloperidol Lactate (Haldol) 5 mg Q6H PRN IM Agitation 07/17/20 17:30 08/31/20 17:29 08/01/20 12:13 Insulin Aspart (NovoLOG) Q6HR SUBQ 07/22/20 08:15 10/20/20 11:29 08/05/20 07:29 Insulin Detemir (Levemir) 12 units Q12HR SUBQ 07/24/20 09:00 10/20/20 09:59 08/05/20 11:28 Loperamide HCl (Imodium) 2 mg Q6H PRN NG Diarrhea 07/29/20 15:45 08/28/20 15:44 Lorazepam (Ativan 2mg/ml 1ml) 1 mg Q4H PRN IV For Anxiety 07/30/20 06:37 08/06/20 06:36 08/01/20 08:48 Metoprolol Tartrate (Lopressor) 25 mg EVERY 6 HOURS NG 07/26/20 12:00 10/24/20 11:59 08/05/20 05:44 Midodrine (Pro-Amatine) 10 mg Q8HR ORAL 08/03/20 16:30 11/01/20 16:29 08/05/20 05:44 Pantoprazole (Protonix) 40 mg EVERY 12 HOURS IVP 07/21/20 21:00 08/20/20 20:59 08/05/20 10:14 Piperacillin Sod/ Tazobactam Sod 2.25 gm/Dextrose 55 ml @ 110 mls/hr Q8HR@0200,1000,1800 IV 08/03/20 10:00 08/10/20 09:59 08/05/20 09:51 Quetiapine Fumarate (SEROqueL) 50 mg Q12HR ORAL 08/05/20 09:00 09/13/20 20:59 08/05/20 10:15 Vitamin D (Vitamin D) 5,000 unit DAILY ORAL 07/29/20 09:00 08/28/20 08:59 08/05/20 11:29 Last 24 Hour Vital Signs Date Time Temp Pulse Resp B/P (MAP) Pulse Ox O2 Delivery O2 Flow Rate FiO2 08/05/20 11:00 80 08/05/20 09:51 95/51 08/05/20 09:00 90 08/05/20 08:00 108 08/05/20 08:00 Mechanical Ventilator 08/05/20 07:30 100 14 114/55 (74) 98 08/05/20 07:00 101 15 105/57 (73) 98 08/05/20 06:00 99.0 95 22 111/50 (70) 89 08/05/20 05:44 108 151/68 08/05/20 05:00 114 22 129/52 (77) 89 08/05/20 05:00 109 22 140/52 (81) 89 08/05/20 04:30 108 22 126/58 (80) 97 08/05/20 04:00 60 08/05/20 04:00 101 08/05/20 04:00 102.0 108 23 103/50 (67) 96 08/05/20 04:00 Mechanical Ventilator 08/05/20 03:30 107 23 116/56 (76) 96 08/05/20 03:00 112 21 107/56 (73) 98 08/05/20 02:30 117 24 103/52 (69) 97 08/05/20 02:00 118 31 108/54 (72) 98 08/05/20 01:30 117 27 103/51 (68) 97 08/05/20 01:01 124 20 60 08/05/20 01:00 122 32 107/50 (69) 100 08/05/20 00:45 116 26 104/51 (68) 100 08/05/20 00:30 115 26 92/46 (61) 100 08/05/20 00:02 124 101/46 08/05/20 00:00 118 08/05/20 00:00 98.8 124 31 105/50 (68) 100 08/05/20 00:00 Mechanical Ventilator 08/05/20 00:00 60 08/04/20 23:30 126 22 101/45 (63) 100 08/04/20 23:00 124 12 98/47 (64) 100 08/04/20 22:30 115 28 102/50 (67) 100 08/04/20 22:15 112 24 97/44 (61) 100 08/04/20 22:00 113 17 96/43 (60) 100 08/04/20 21:45 115 23 106/47 (66) 100 08/04/20 21:30 112 26 94/46 (62) 100 08/04/20 21:15 103 24 93/43 (60) 100 08/04/20 21:00 101 19 80/45 (57) 100 08/04/20 20:45 98 20 74/52 (59) 100 08/04/20 20:30 100 19 89/45 (60) 100 08/04/20 20:15 106 27 96/45 (62) 100 08/04/20 20:00 Mechanical Ventilator 08/04/20 20:00 101 18 97/44 (61) 100 08/04/20 20:00 60 08/04/20 20:00 101 08/04/20 19:30 104 16 110/52 (71) 100 08/04/20 19:00 101 23 115/42 (66) 94 08/04/20 18:44 101 19 96 Mechanical Ventilator 100 08/04/20 18:42 100 19 100 08/04/20 18:30 97.9 109 24 109/53 (71) 100 08/04/20 18:21 121 130/54 08/04/20 18:00 113 20 108/61 (77) 100 08/04/20 17:30 119 20 110/48 (68) 100 08/04/20 17:00 119 20 110/48 (68) 100 08/04/20 16:30 100.5 131 20 100/51 (67) 100 08/04/20 16:00 100 08/04/20 16:00 Mechanical Ventilator 08/04/20 16:00 135 21 95/44 (61) 100 08/04/20 15:55 115 23 100 08/04/20 15:30 115 22 102/48 (66) 100 08/04/20 15:25 133 08/04/20 15:00 120 20 105/58 (74) 100 08/04/20 14:30 104 19 108/45 (66) 100 08/04/20 14:00 101 22 94/51 (65) 100 08/04/20 13:30 97 17 108/50 (69) 100 08/04/20 13:00 94 14 111/66 (81) 100 08/04/20 12:30 99 17 129/55 (79) 100 08/04/20 12:00 Mechanical Ventilator 08/04/20 12:00 100 08/04/20 12:00 96.4 99 20 125/61 (82) 100 08/04/20 11:45 100 19 118/73 (88) 100 08/04/20 11:30 106 08/04/20 11:30 105 21 118/73 (88) 100 08/04/20 11:15 105 18 154/68 (96) 100 08/04/20 11:00 104 20 144/70 (94) 100 08/04/20 10:45 99.4 107 20 170/73 (105) 100 08/04/20 10:30 103 20 177/65 (102) 100 08/04/20 10:15 104 17 160/63 (95) 100 08/04/20 10:00 106 21 159/67 (97) 100 08/04/20 09:46 152/61 08/04/20 09:45 107 21 137/58 (84) 100 08/04/20 09:30 112 20 134/47 (76) 100 08/04/20 09:00 96 23 98/45 (62) 100 08/04/20 08:30 102 27 90/31 (50) 100 08/04/20 08:00 100 08/04/20 08:00 100.4 132 22 120/56 (77) 100 08/04/20 08:00 Mechanical Ventilator 08/04/20 07:53 126 08/04/20 07:30 133 24 154/72 (99) 100 08/04/20 07:16 118 16 100 08/04/20 07:00 120 20 152/69 (96) 100 08/04/20 06:30 125 20 146/60 (88) 100 08/04/20 06:00 121 17 141/58 (85) 100 08/04/20 06:00 119 86/50 08/04/20 05:30 139 15 153/62 (92) 100 08/04/20 05:16 85/55 08/04/20 05:00 136 18 82/46 (58) 100 08/04/20 04:15 143 22 114/50 (71) 100 08/04/20 04:00 Mechanical Ventilator 08/04/20 04:00 142 08/04/20 04:00 136 25 134/57 (82) 100 08/04/20 04:00 100 08/04/20 04:00 99.9 136 25 134/57 (82) 100 08/04/20 03:45 126 18 133/59 (83) 100 08/04/20 03:30 120 18 86/50 (62) 100 08/04/20 03:15 130 18 123/56 (78) 100 08/04/20 03:08 140 18 181/64 (103) 100 08/04/20 03:00 128 19 163/66 (98) 100 08/04/20 02:45 125 19 161/63 (95) 100 08/04/20 02:39 121 19 169/64 (99) 100 08/04/20 02:15 152 21 123/103 (110) 100 08/04/20 02:04 111 20 104/36 (58) 100 08/04/20 02:02 88 19 55/38 (44) 98 08/04/20 02:00 63 17 63/28 (40) 85 08/04/20 01:45 119 19 82/38 (53) 88 08/04/20 01:30 135 19 101/49 (66) 89 08/04/20 01:15 65 18 86/55 (65) 85 08/04/20 01:00 165 19 112/52 (72) 95 08/04/20 00:45 148 26 134/99 (111) 99 08/04/20 00:30 130 23 103/48 (66) 96 08/04/20 00:15 123 30 125/58 (80) 93 08/04/20 00:11 114 19 40 08/04/20 00:03 107 107/48 08/04/20 00:00 100 08/04/20 00:00 99.0 100 18 90/51 (64) 98 08/04/20 00:00 Mechanical Ventilator 08/04/20 00:00 88 08/03/20 23:45 95 16 107/46 (66) 96 08/03/20 23:30 98 19 98/45 (62) 96 08/03/20 23:15 116 21 97/51 (66) 92 08/03/20 23:04 80/43 08/03/20 23:00 103 16 98/46 (63) 99 08/03/20 22:30 110 16 80/35 (50) 99 08/03/20 22:00 97 16 96/49 (65) 99 08/03/20 21:00 89 18 119/55 (76) 99 08/03/20 20:00 Mechanical Ventilator 08/03/20 20:00 99.0 88 17 108/55 (72) 99 08/03/20 20:00 88 08/03/20 19:19 94 22 40 08/03/20 19:00 95 15 128/47 (74) 99 08/03/20 18:00 103 19 118/46 (70) 97 08/03/20 17:32 110 140/62 08/03/20 17:00 105 18 134/56 (82) 100 08/03/20 16:00 96.8 95 28 94/35 (54) 100 08/03/20 16:00 40 08/03/20 16:00 Mechanical Ventilator 08/03/20 15:21 101 08/03/20 15:00 94 17 143/57 (85) 99 08/03/20 14:52 104 18 40 08/03/20 14:00 103 14 109/80 (90) 99 08/03/20 13:00 98.5 111 18 110/53 (72) 98 Intake and Output 08/04/20 08/05/20 19:00 07:00 Intake Total 1046.25 ml 795.0 ml Output Total 50 ml 200 ml Balance 996.25 ml 595.0 ml Free Water 30 ml IV Total 396.25 ml 115.0 ml Tube Feeding 500 ml 650 ml Other 150 ml Stool Total 50 ml 200 ml Labs Test 08/02/20 16:47 08/03/20 04:35 08/03/20 04:51 08/03/20 09:15 POC Whole Blood Glucose 252 MG/DL (74-106) 381 MG/DL (74-106) White Blood Count 24.4 K/UL (4.8-10.8) Red Blood Count 2.70 M/UL (4.20-5.40) Hemoglobin 10.2 G/DL (12.0-16.0) Hematocrit 27.1 % (37.0-47.0) Mean Corpuscular Volume 101 FL (80-99) Mean Corpuscular Hemoglobin 37.7 PG (27.0-31.0) Mean Corpuscular Hemoglobin Concent 37.5 G/DL (32.0-36.0) Red Cell Distribution Width 16.8 % (11.6-14.8) Platelet Count 167 K/UL (150-450) Mean Platelet Volume 8.7 FL (6.5-10.1) Neutrophils (%) (Auto) % (45.0-75.0) Lymphocytes (%) (Auto) % (20.0-45.0) Monocytes (%) (Auto) % (1.0-10.0) Eosinophils (%) (Auto) % (0.0-3.0) Basophils (%) (Auto) % (0.0-2.0) Differential Total Cells Counted 100 Neutrophils % (Manual) 88 % (45-75) Lymphocytes % (Manual) 1 % (20-45) Monocytes % (Manual) 2 % (1-10) Eosinophils % (Manual) 2 % (0-3) Basophils % (Manual) 0 % (0-2) Band Neutrophils 7 % (0-8) Platelet Estimate Adequate Platelet Morphology Normal Hypochromasia Anisocytosis 1+ Macrocytosis 1+ Sodium Level 137 MMOL/L (136-145) Potassium Level 4.8 MMOL/L (3.5-5.1) Chloride Level 94 MMOL/L (98-107) Carbon Dioxide Level 25 MMOL/L (21-32) Blood Urea Nitrogen 67 mg/dL (7-18) Creatinine 3.9 MG/DL (0.55-1.30) Estimat Glomerular Filtration Rate 11.4 mL/min (>60) Glucose Level 373 MG/DL (74-106) Uric Acid 4.8 MG/DL (2.6-7.2) Calcium Level 9.0 MG/DL (8.5-10.1) Phosphorus Level 7.3 MG/DL (2.5-4.9) Magnesium Level 2.0 MG/DL (1.8-2.4) Total Bilirubin 2.3 MG/DL (0.2-1.0) Direct Bilirubin 1.6 MG/DL (0.0-0.3) Aspartate Amino Transf (AST/SGOT) 29 U/L (15-37) Alanine Aminotransferase (ALT/SGPT) 22 U/L (12-78) Alkaline Phosphatase 223 U/L (46-116) Troponin I 0.163 ng/mL (0.000-0.056) C-Reactive Protein, Quantitative > 70.0 mg/dL (0.00-0.90) Pro-B-Type Natriuretic Peptide > 51991 pg/mL (0-125) Total Protein 7.1 G/DL (6.4-8.2) Albumin 2.2 G/DL (3.4-5.0) Globulin 4.9 g/dL Albumin/Globulin Ratio 0.4 (1.0-2.7) Test 08/03/20 11:52 08/03/20 17:46 08/03/20 21:19 08/03/20 23:58 POC Whole Blood Glucose 181 MG/DL (74-106) Test 08/04/20 03:45 08/04/20 06:25 08/04/20 09:25 08/04/20 12:43 White Blood Count 23.7 K/UL (4.8-10.8) Red Blood Count 2.41 M/UL (4.20-5.40) Hemoglobin 9.6 G/DL (12.0-16.0) Hematocrit 24.8 % (37.0-47.0) Mean Corpuscular Volume 103 FL (80-99) Mean Corpuscular Hemoglobin 39.7 PG (27.0-31.0) Mean Corpuscular Hemoglobin Concent 38.6 G/DL (32.0-36.0) Red Cell Distribution Width 15.9 % (11.6-14.8) Platelet Count 162 K/UL (150-450) Mean Platelet Volume 8.3 FL (6.5-10.1) Neutrophils (%) (Auto) % (45.0-75.0) Lymphocytes (%) (Auto) % (20.0-45.0) Monocytes (%) (Auto) % (1.0-10.0) Eosinophils (%) (Auto) % (0.0-3.0) Basophils (%) (Auto) % (0.0-2.0) Differential Total Cells Counted 100 Neutrophils % (Manual) 93 % (45-75) Lymphocytes % (Manual) 1 % (20-45) Monocytes % (Manual) 2 % (1-10) Eosinophils % (Manual) 1 % (0-3) Basophils % (Manual) 0 % (0-2) Band Neutrophils 3 % (0-8) Platelet Estimate Adequate Platelet Morphology Normal Hypochromasia 1+ Anisocytosis 1+ Macrocytosis 1+ Sodium Level 137 MMOL/L (136-145) Potassium Level 4.3 MMOL/L (3.5-5.1) Chloride Level 96 MMOL/L (98-107) Carbon Dioxide Level 26 MMOL/L (21-32) Anion Gap 15 mmol/L (5-15) Blood Urea Nitrogen 93 mg/dL (7-18) Creatinine 4.8 MG/DL (0.55-1.30) Estimat Glomerular Filtration Rate 9.0 mL/min (>60) Glucose Level 246 MG/DL (74-106) Calcium Level 9.2 MG/DL (8.5-10.1) Phosphorus Level 7.6 MG/DL (2.5-4.9) Magnesium Level 2.0 MG/DL (1.8-2.4) Total Bilirubin 2.1 MG/DL (0.2-1.0) Direct Bilirubin 1.5 MG/DL (0.0-0.3) Aspartate Amino Transf (AST/SGOT) 45 U/L (15-37) Alanine Aminotransferase (ALT/SGPT) 20 U/L (12-78) Alkaline Phosphatase 365 U/L (46-116) C-Reactive Protein, Quantitative 39.0 mg/dL (0.00-0.90) Pro-B-Type Natriuretic Peptide > 19247 pg/mL (0-125) Total Protein 6.9 G/DL (6.4-8.2) Albumin 2.2 G/DL (3.4-5.0) Globulin 4.7 g/dL Albumin/Globulin Ratio 0.5 (1.0-2.7) POC Whole Blood Glucose 251 MG/DL (74-106) Test 08/04/20 18:09 08/04/20 18:10 08/04/20 18:48 08/04/20 21:09 POC Whole Blood Glucose 63 MG/DL (74-106) 117 MG/DL (74-106) Test 08/05/20 00:09 08/05/20 05:00 08/05/20 05:26 08/05/20 11:20 POC Whole Blood Glucose 117 MG/DL (74-106) 157 MG/DL (74-106) 152 MG/DL (74-106) White Blood Count 13.7 K/UL (4.8-10.8) Red Blood Count 2.52 M/UL (4.20-5.40) Hemoglobin 9.1 G/DL (12.0-16.0) Hematocrit 25.2 % (37.0-47.0) Mean Corpuscular Volume 100 FL (80-99) Mean Corpuscular Hemoglobin 36.2 PG (27.0-31.0) Mean Corpuscular Hemoglobin Concent 36.2 G/DL (32.0-36.0) Red Cell Distribution Width 17.0 % (11.6-14.8) Platelet Count 110 K/UL (150-450) Mean Platelet Volume 8.3 FL (6.5-10.1) Neutrophils (%) (Auto) % (45.0-75.0) Lymphocytes (%) (Auto) % (20.0-45.0) Monocytes (%) (Auto) % (1.0-10.0) Eosinophils (%) (Auto) % (0.0-3.0) Basophils (%) (Auto) % (0.0-2.0) Differential Total Cells Counted 100 Neutrophils % (Manual) 78 % (45-75) Lymphocytes % (Manual) 2 % (20-45) Monocytes % (Manual) 6 % (1-10) Eosinophils % (Manual) 1 % (0-3) Basophils % (Manual) 0 % (0-2) Band Neutrophils 13 % (0-8) Platelet Estimate Decreased Platelet Morphology Normal Hypochromasia Anisocytosis 1+ Macrocytosis 1+ Sodium Level 137 MMOL/L (136-145) Potassium Level 4.1 MMOL/L (3.5-5.1) Chloride Level 97 MMOL/L (98-107) Carbon Dioxide Level 25 MMOL/L (21-32) Anion Gap 15 mmol/L (5-15) Blood Urea Nitrogen 115 mg/dL (7-18) Creatinine 5.5 MG/DL (0.55-1.30) Estimat Glomerular Filtration Rate 7.6 mL/min (>60) Glucose Level 152 MG/DL (74-106) Calcium Level 8.9 MG/DL (8.5-10.1) Phosphorus Level 6.0 MG/DL (2.5-4.9) Magnesium Level 1.9 MG/DL (1.8-2.4) Total Bilirubin 1.8 MG/DL (0.2-1.0) Direct Bilirubin 1.4 MG/DL (0.0-0.3) Aspartate Amino Transf (AST/SGOT) 46 U/L (15-37) Alanine Aminotransferase (ALT/SGPT) 18 U/L (12-78) Alkaline Phosphatase 347 U/L (46-116) C-Reactive Protein, Quantitative 49.3 mg/dL (0.00-0.90) Total Protein 6.5 G/DL (6.4-8.2) Albumin 1.9 G/DL (3.4-5.0) Globulin 4.6 g/dL Albumin/Globulin Ratio 0.4 (1.0-2.7) Height (Feet): 5 Height (Inches): 4.00 Weight (Pounds): 180 Objective Objective Physical Exam General Appearance: alert, obese, Chronically Ill Neck: full range of motion Respiratory: wheezing ETT vent Cardiovascular: edema Gastrointestinal: normal inspection, soft Neurologic: alert, services tech III-XII nml as tested Psychiatric: normal inspection, judgement/insight normal Skin: other Suzie Lee NP Aug 05, 2020 12:38
--- NOTE | 2020-08-05 13:48 | NUR ---
NURSE NOTES: Pt remains lethargic, observed moving extremities, however not opening eyes. Pt turned and repositioned for comfort. No distress noted at this time. Pt received Albumin IVPB, as ordered
--- NOTE | 2020-08-05 15:00 | NUR ---
NURSE NOTES: FiO2 decreased to 80%. O2sat on velvet cutter reads 99%. No distress noted. 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
--- NOTE | 2020-08-05 15:16 | Pulmonology Progress Note ---
Subjective ROS Limited/Unobtainable: Yes Interval Events: dialysis today Constitutional: Reports: no symptoms, other - Rmuz=[id number] HEENT: Repors: no symptoms Respiratory: Reports: no symptoms Cardiovascular: Reports: no symptoms Gastrointestinal/Abdominal: Reports: other - rectal bleeding Genitourinary: Reports: no symptoms Allergies: Coded Allergies: No Known Allergies (Unverified , 05/12/17) All Systems: reviewed and negative except above Objective Last 24 Hour Vital Signs Date Time Temp Pulse Resp B/P (MAP) Pulse Ox O2 Delivery O2 Flow Rate FiO2 08/05/20 13:00 104 15 108/62 (77) 100 08/05/20 12:30 108 15 105/54 (71) 99 08/05/20 12:15 98.4 114 16 107/54 (71) 99 08/05/20 12:00 105 08/05/20 12:00 Mechanical Ventilator 08/05/20 12:00 113 15 104/52 (69) 99 08/05/20 11:30 121 22 107/54 (71) 99 08/05/20 11:00 80 08/05/20 11:00 126 22 118/58 (78) 98 08/05/20 10:30 117 23 91/52 (65) 98 08/05/20 10:00 113 23 105/50 (68) 98 08/05/20 09:51 95/51 08/05/20 09:30 110 20 95/51 (66) 97 08/05/20 09:00 90 08/05/20 09:00 110 21 97/51 (66) 96 08/05/20 08:30 108 20 103/53 (70) 97 08/05/20 08:00 103 16 107/52 (70) 98 08/05/20 08:00 108 08/05/20 08:00 Mechanical Ventilator 08/05/20 07:30 100 14 114/55 (74) 98 08/05/20 07:00 101 15 105/57 (73) 98 08/05/20 06:00 99.0 95 22 111/50 (70) 89 08/05/20 05:44 108 151/68 08/05/20 05:00 114 22 129/52 (77) 89 08/05/20 05:00 109 22 140/52 (81) 89 1/3/21 04:30 108 22 126/58 (80) 97 08/05/20 04:00 60 08/05/20 04:00 101 08/05/20 04:00 102.0 108 23 103/50 (67) 96 08/05/20 04:00 Mechanical Ventilator 08/05/20 03:30 107 23 116/56 (76) 96 08/05/20 03:00 112 21 107/56 (73) 98 08/05/20 02:30 117 24 103/52 (69) 97 08/05/20 02:00 118 31 108/54 (72) 98 08/05/20 01:30 117 27 103/51 (68) 97 08/05/20 01:01 124 20 60 08/05/20 01:00 122 32 107/50 (69) 100 08/05/20 00:45 116 26 104/51 (68) 100 08/05/20 00:30 115 26 92/46 (61) 100 08/05/20 00:02 124 101/46 08/05/20 00:00 118 08/05/20 00:00 98.8 124 31 105/50 (68) 100 08/05/20 00:00 Mechanical Ventilator 08/05/20 00:00 60 08/04/20 23:30 126 22 101/45 (63) 100 08/04/20 23:00 124 12 98/47 (64) 100 08/04/20 22:30 115 28 102/50 (67) 100 08/04/20 22:15 112 24 97/44 (61) 100 08/04/20 22:00 113 17 96/43 (60) 100 08/04/20 21:45 115 23 106/47 (66) 100 08/04/20 21:30 112 26 94/46 (62) 100 08/04/20 21:15 103 24 93/43 (60) 100 08/04/20 21:00 101 19 80/45 (57) 100 08/04/20 20:45 98 20 74/52 (59) 100 08/04/20 20:30 100 19 89/45 (60) 100 08/04/20 20:15 106 27 96/45 (62) 100 08/04/20 20:00 Mechanical Ventilator 08/04/20 20:00 101 18 97/44 (61) 100 08/04/20 20:00 60 1/2/21 20:00 101 08/04/20 19:30 104 16 110/52 (71) 100 08/04/20 19:00 101 23 115/42 (66) 94 08/04/20 18:44 101 19 96 Mechanical Ventilator 100 08/04/20 18:42 100 19 100 08/04/20 18:30 97.9 109 24 109/53 (71) 100 08/04/20 18:21 121 130/54 08/04/20 18:00 113 20 108/61 (77) 100 08/04/20 17:30 119 20 110/48 (68) 100 08/04/20 17:00 119 20 110/48 (68) 100 08/04/20 16:30 100.5 131 20 100/51 (67) 100 08/04/20 16:00 100 08/04/20 16:00 Mechanical Ventilator 08/04/20 16:00 135 21 95/44 (61) 100 08/04/20 15:55 115 23 100 08/04/20 15:30 115 22 102/48 (66) 100 08/04/20 15:25 133 Intake and Output 08/04/20 08/05/20 19:00 07:00 Intake Total 1046.25 ml 795.0 ml Output Total 50 ml 200 ml Balance 996.25 ml 595.0 ml Free Water 30 ml IV Total 396.25 ml 115.0 ml Tube Feeding 500 ml 650 ml Other 150 ml Stool Total 50 ml 200 ml Objective saturating well on current vent setting 07/21 now in ICU; s/p intubation, NG tube 07/20 now on 15 L NRB mask; ICU transfer pending 07/19/2020 saturating well on 3 lpm NC 07/18/2020 saturating well on 3 lpm NC General Appearance: WD/WN, no acute distress, other - intubation HEENT: normocephalic Respiratory: chest wall non-tender, crackles/rales Cardiovascular: normal rate, regular rhythm Microbiology Date/Time Source Procedure Growth Status 08/03/20 18:15 Sputum Gram Stain - Final Resulted 08/03/20 18:15 Sputum Culture - Preliminary Елена Albicans Usual Respiratory Bruna Resulted Laboratory Tests 08/04/20 18:09: POC Whole Blood Glucose 63L 08/04/20 18:10: POC Whole Blood Glucose [Pending] 08/04/20 18:48: POC Whole Blood Glucose [Pending] 08/04/20 21:09: POC Whole Blood Glucose 117H 08/05/20 00:09: POC Whole Blood Glucose 117H 08/05/20 05:00: White Blood Count 13.7H, Red Blood Count 2.52L, Hemoglobin 9.1L, Hematocrit 25.2L, Mean Corpuscular Volume 100H, Mean Corpuscular Hemoglobin 36.2H, Mean Corpuscular Hemoglobin Concent 36.2H, Red Cell Distribution Width 17.0H, Platelet Count 110L, Mean Platelet Volume 8.3, Neutrophils (%) (Auto) , Lymphocytes (%) (Auto) , Monocytes (%) (Auto) , Eosinophils (%) (Auto) , Basophils (%) (Auto) , Differential Total Cells Counted 100, Neutrophils % (Manual) 78H, Lymphocytes % (Manual) 2L, Monocytes % (Manual) 6, Eosinophils % (Manual) 1, Basophils % (Manual) 0, Band Neutrophils 13H, Platelet Estimate DecreasedL, Platelet Morphology Normal, Hypochromasia , Anisocytosis 1+, Macrocytosis 1+, Sodium Level 137, Potassium Level 4.1, Chloride Level 97L, Carbon Dioxide Level 25, Anion Gap 15, Blood Urea Nitrogen 115H, Creatinine 5.5H , Estimat Glomerular Filtration Rate 7.6, Glucose Level 152H, Calcium Level 8.9, Phosphorus Level 6.0H, Magnesium Level 1.9, Total Bilirubin 1.8H, Direct Bilirubin 1.4H, Aspartate Amino Transf (AST/SGOT) 46H, Alanine Aminotransferase (ALT/SGPT) 18, Alkaline Phosphatase 347H, C-Reactive Protein, Quantitative 49.3H , Total Protein 6.5, Albumin 1.9L, Globulin 4.6, Albumin/Globulin Ratio 0.4L 08/05/20 05:26: POC Whole Blood Glucose 157H 08/05/20 11:20: POC Whole Blood Glucose 152H 08/05/20 13:39: POC Whole Blood Glucose 182H Current Medications Medications (Trade) Dose Ordered Sig/Toya Route PRN Reason Start Time Stop Time Status Last Admin Dose Admin Acetaminophen (Tylenol) 650 mg EVERY 6 HOURS PRN NG Mild Pain (Pain Scale 1-3) 07/29/20 09:05 08/28/20 09:04 08/01/20 20:44 Acetaminophen (Tylenol) 650 mg EVERY 6 HOURS PRN NG Temp >100.5 07/29/20 09:15 08/28/20 09:14 08/02/20 08:17 Barium Sulfate (Readi-Cat 2) 450 ml NOW PRN ORAL Radiology Procedure 08/03/20 20:00 08/05/20 19:59 Chlorhexidine Gluconate (Yessi-Hex 2%) 1 applic DAILY@2000 TOPIC 07/21/20 20:00 10/19/20 19:59 08/04/20 20:01 Clonidine HCl (Catapres Tab) 0.1 mg Q4H PRN NG bp over 165 syst 07/21/20 12:00 10/14/20 22:44 Dextrose (Dextrose 50%) 25 ml Q30M PRN IV Hypoglycemia 07/22/20 08:00 10/20/20 07:59 08/04/20 18:19 Dextrose (Dextrose 50%) 50 ml Q30M PRN IV Hypoglycemia 07/22/20 08:00 10/20/20 07:59 Docusate Sodium (Colace) 100 mg EVERY 8 HOURS NG 07/29/20 22:00 08/20/20 12:59 08/05/20 13:46 Epoetin Panchito (Epoetin Panchito(ESRD on dialysis)) 2,000 unit THU-THU-THU SUBQ 08/03/20 21:00 11/01/20 20:59 08/03/20 21:16 Epoetin Panchito (Epoetin Panchito(ESRD on dialysis)) 8,000 unit SUBQ 08/03/20 21:00 11/01/20 20:59 08/03/20 21:16 Haloperidol Lactate (Haldol) 5 mg Q6H PRN IM Agitation 07/17/20 17:30 08/31/20 17:29 08/01/20 12:13 Insulin Aspart (NovoLOG) Q6HR SUBQ 07/22/20 08:15 10/20/20 11:29 08/05/20 13:45 Insulin Detemir (Levemir) 12 units Q12HR SUBQ 07/24/20 09:00 10/20/20 09:59 08/05/20 11:28 Loperamide HCl (Imodium) 2 mg Q6H PRN NG Diarrhea 07/29/20 15:45 08/28/20 15:44 Lorazepam (Ativan 2mg/ml 1ml) 1 mg Q4H PRN IV For Anxiety 07/30/20 06:37 08/06/20 06:36 08/01/20 08:48 Metoprolol Tartrate (Lopressor) 25 mg EVERY 6 HOURS NG 07/26/20 12:00 10/24/20 11:59 08/05/20 05:44 Midodrine (Pro-Amatine) 10 mg Q8HR ORAL 08/03/20 16:30 11/01/20 16:29 08/05/20 13:46 Pantoprazole (Protonix) 40 mg EVERY 12 HOURS IVP 07/21/20 21:00 08/20/20 20:59 08/05/20 10:14 Piperacillin Sod/ Tazobactam Sod 2.25 gm/Dextrose 55 ml @ 110 mls/hr Q8HR@0200,1000,1800 IV 08/03/20 10:00 08/10/20 09:59 08/05/20 09:51 Quetiapine Fumarate (SEROqueL) 50 mg Q12HR ORAL 08/05/20 09:00 09/13/20 20:59 08/05/20 10:15 Vitamin D (Vitamin D) 5,000 unit DAILY ORAL 07/29/20 09:00 08/28/20 08:59 08/05/20 11:29 Assessment/Plan Assessment/Plan 1. COVID-19 pneumonia. - on Abx 2. COPD 3. Pneumonia 4. Hypertensive emergency. 5. Leukocytosis. 6. Anemia. 7. Hyponatremia. 8. Hyperkalemia. 9. Hypochloridemia. 10. Hyperglycemia. 11. ESRD, on dialysis. 12. Respiratory failure; intubated PLAN Continue O2; currently 100% Became bradycardic; FiO2 80% to 100% Vent; AC mode On PEEP now 10 Agree with HD; recommend daily HD Noted rectal bleeding -> s/p PRBC Transfusions in place CXR 08/03 improvement in mild to moderate diffuse bilateral alveolar infiltrates since the prior study Discussed with Dr Falk Will attempt wean when FiO2 and PEEP are lower Agustín Wadsworth Aug 05, 2020 15:16
[2020-08-05] MEDS: Norepinephrine 4mg/NS Premix 250 ML IV SCH (15:55)
--- NOTE | 2020-08-05 16:00 | NUR ---
NURSE NOTES: Levophed started to sustain SBP >90 during dialysis
--- NOTE | 2020-08-05 17:00 | NUR ---
NURSE NOTES: Dr Gatica at bedside assessing pt. Updated him on pt's current condition.
--- NOTE | 2020-08-05 17:53 | NUR ---
NURSE NOTES: Pt fully cleaned and linens changed. Minimal leakage noted from around the rectal tube. Total of 700mL light brown loose stool noted in collection bag, no bloody stool noted. Pt remains on Levophed @ 2mcg/min to sustain SBP for dialysis.
--- NOTE | 2020-08-05 18:09 | Cardiac Electrophysiology PN ---
Assessment/Plan Assessment/Plan 1. Hypotension . DC Lopressor EF 40- 45% On Levo 2 Mcg 2. Atrial fib with RVR with HR up to 150s. DC Lopressor 25 q 6 hr for hypotension 3. ESRD, on hemodialysis. 4. Hyponatremia, sodium 129. Fluid restriction per Dr. Falk. 5. Volume overload, BNP of more than 35,000 and EF 40-45%. On HD 6. Covid PNA and resp failure on the Vent with 70% Fio2 and PEEP 10 Covid positive 07/11 and 07/17 7. Rectal bleeding. S/P PRBC . FU Gi GER RN Subjective Subjective Confused in restraints. In Covid isolation. Intubated on 70% Fio2 and PEEP 10 In atrial fib in 90s. S/P PRBC for rectal bleeding. BP dropped to 70s overnight and was started on Levo 20 mcg but now down to 2 mcg HD pending tonight No more rectal bleeding Objective Last 24 Hour Vital Signs Date Time Temp Pulse Resp B/P (MAP) Pulse Ox O2 Delivery O2 Flow Rate FiO2 08/05/20 16:00 Mechanical Ventilator 08/05/20 16:00 70 08/05/20 16:00 99.2 108 17 128/58 (81) 99 08/05/20 15:55 102/57 08/05/20 15:37 92/46 08/05/20 15:30 102 20 92/46 (61) 97 08/05/20 15:00 95 14 88/47 (61) 99 08/05/20 15:00 70 08/05/20 14:30 92 14 100/58 (72) 100 08/05/20 14:00 100 16 110/58 (75) 99 08/05/20 13:00 104 15 108/62 (77) 100 08/05/20 12:55 106 20 80 08/05/20 12:30 108 15 105/54 (71) 99 08/05/20 12:15 98.4 114 16 107/54 (71) 99 08/05/20 12:00 105 08/05/20 12:00 Mechanical Ventilator 08/05/20 12:00 113 15 104/52 (69) 99 08/05/20 11:30 121 22 107/54 (71) 99 08/05/20 11:00 80 08/05/20 11:00 126 22 118/58 (78) 98 08/05/20 10:30 117 23 91/52 (65) 98 08/05/20 10:00 113 23 105/50 (68) 98 08/05/20 09:51 95/51 08/05/20 09:30 110 20 95/51 (66) 97 08/05/20 09:00 90 08/05/20 09:00 110 21 97/51 (66) 96 08/05/20 09:00 80 08/05/20 08:30 108 20 103/53 (70) 97 08/05/20 08:00 103 16 107/52 (70) 98 08/05/20 08:00 108 08/05/20 08:00 Mechanical Ventilator 08/05/20 07:30 100 14 114/55 (74) 98 08/05/20 07:10 106 20 90 08/05/20 07:00 101 15 105/57 (73) 98 08/05/20 06:00 99.0 95 22 111/50 (70) 89 08/05/20 05:44 108 151/68 08/05/20 05:00 114 22 129/52 (77) 89 08/05/20 05:00 109 22 140/52 (81) 89 08/05/20 04:30 108 22 126/58 (80) 97 08/05/20 04:00 60 08/05/20 04:00 101 08/05/20 04:00 102.0 108 23 103/50 (67) 96 08/05/20 04:00 Mechanical Ventilator 08/05/20 03:30 107 23 116/56 (76) 96 08/05/20 03:00 112 21 107/56 (73) 98 08/05/20 02:30 117 24 103/52 (69) 97 08/05/20 02:00 118 31 108/54 (72) 98 08/05/20 01:30 117 27 103/51 (68) 97 08/05/20 01:01 124 20 60 08/05/20 01:00 122 32 107/50 (69) 100 08/05/20 00:45 116 26 104/51 (68) 100 08/05/20 00:30 115 26 92/46 (61) 100 08/05/20 00:02 124 101/46 08/05/20 00:00 118 08/05/20 00:00 98.8 124 31 105/50 (68) 100 08/05/20 00:00 Mechanical Ventilator 08/05/20 00:00 60 08/04/20 23:30 126 22 101/45 (63) 100 08/04/20 23:00 124 12 98/47 (64) 100 08/04/20 22:30 115 28 102/50 (67) 100 08/04/20 22:15 112 24 97/44 (61) 100 08/04/20 22:00 113 17 96/43 (60) 100 08/04/20 21:45 115 23 106/47 (66) 100 08/04/20 21:30 112 26 94/46 (62) 100 08/04/20 21:15 103 24 93/43 (60) 100 08/04/20 21:00 101 19 80/45 (57) 100 08/04/20 20:45 98 20 74/52 (59) 100 08/04/20 20:30 100 19 89/45 (60) 100 08/04/20 20:15 106 27 96/45 (62) 100 08/04/20 20:00 Mechanical Ventilator 08/04/20 20:00 101 18 97/44 (61) 100 08/04/20 20:00 60 08/04/20 20:00 101 08/04/20 19:30 104 16 110/52 (71) 100 08/04/20 19:00 101 23 115/42 (66) 94 08/04/20 18:44 101 19 96 Mechanical Ventilator 100 08/04/20 18:42 100 19 100 08/04/20 18:30 97.9 109 24 109/53 (71) 100 08/04/20 18:21 121 130/54 Intake and Output 08/04/20 08/05/20 19:00 07:00 Intake Total 1046.25 ml 795.0 ml Output Total 50 ml 200 ml Balance 996.25 ml 595.0 ml Free Water 30 ml IV Total 396.25 ml 115.0 ml Tube Feeding 500 ml 650 ml Other 150 ml Stool Total 50 ml 200 ml Laboratory Tests Test 08/04/20 18:09 08/04/20 18:10 08/04/20 18:48 08/04/20 21:09 POC Whole Blood Glucose 63 MG/DL (74-106) L Pending Pending 117 MG/DL (74-106) H Test 08/05/20 00:09 08/05/20 05:00 08/05/20 05:26 08/05/20 11:20 POC Whole Blood Glucose 117 MG/DL (74-106) H 157 MG/DL (74-106) H 152 MG/DL (74-106) H White Blood Count 13.7 K/UL (4.8-10.8) H Red Blood Count 2.52 M/UL (4.20-5.40) L Hemoglobin 9.1 G/DL (12.0-16.0) L Hematocrit 25.2 % (37.0-47.0) L Mean Corpuscular Volume 100 FL (80-99) H Mean Corpuscular Hemoglobin 36.2 PG (27.0-31.0) H Mean Corpuscular Hemoglobin Concent 36.2 G/DL (32.0-36.0) H Red Cell Distribution Width 17.0 % (11.6-14.8) H Platelet Count 110 K/UL (150-450) L Mean Platelet Volume 8.3 FL (6.5-10.1) Neutrophils (%) (Auto) % (45.0-75.0) Lymphocytes (%) (Auto) % (20.0-45.0) Monocytes (%) (Auto) % (1.0-10.0) Eosinophils (%) (Auto) % (0.0-3.0) Basophils (%) (Auto) % (0.0-2.0) Differential Total Cells Counted 100 Neutrophils % (Manual) 78 % (45-75) H Lymphocytes % (Manual) 2 % (20-45) L Monocytes % (Manual) 6 % (1-10) Eosinophils % (Manual) 1 % (0-3) Basophils % (Manual) 0 % (0-2) Band Neutrophils 13 % (0-8) H Platelet Estimate Decreased L Platelet Morphology Normal Hypochromasia Anisocytosis 1+ Macrocytosis 1+ Sodium Level 137 MMOL/L (136-145) Potassium Level 4.1 MMOL/L (3.5-5.1) Chloride Level 97 MMOL/L (98-107) L Carbon Dioxide Level 25 MMOL/L (21-32) Anion Gap 15 mmol/L (5-15) Blood Urea Nitrogen 115 mg/dL (7-18) H Creatinine 5.5 MG/DL (0.55-1.30) H Estimat Glomerular Filtration Rate 7.6 mL/min (>60) Glucose Level 152 MG/DL (74-106) H Calcium Level 8.9 MG/DL (8.5-10.1) Phosphorus Level 6.0 MG/DL (2.5-4.9) H Magnesium Level 1.9 MG/DL (1.8-2.4) Total Bilirubin 1.8 MG/DL (0.2-1.0) H Direct Bilirubin 1.4 MG/DL (0.0-0.3) H Aspartate Amino Transf (AST/SGOT) 46 U/L (15-37) H Alanine Aminotransferase (ALT/SGPT) 18 U/L (12-78) Alkaline Phosphatase 347 U/L (46-116) H C-Reactive Protein, Quantitative 49.3 mg/dL (0.00-0.90) H Total Protein 6.5 G/DL (6.4-8.2) Albumin 1.9 G/DL (3.4-5.0) L Globulin 4.6 g/dL Albumin/Globulin Ratio 0.4 (1.0-2.7) L Test 08/05/20 13:39 08/05/20 17:39 POC Whole Blood Glucose 182 MG/DL (74-106) H 158 MG/DL (74-106) H Microbiology Date/Time Source Procedure Growth Status 08/03/20 18:15 Sputum Gram Stain - Final Resulted 08/03/20 18:15 Sputum Culture - Preliminary Елена Albicans Usual Respiratory Bruna Resulted Objective HEAD AND NECK: Orally intubated LUNGS: Coarse rhonchi. CARDIOVASCULAR: Regular S1 and S2 with no gallop or murmur. ABDOMEN: Soft. EXTREMITIES: No pitting edema. Zev Gatica MD Aug 05, 2020 18:09
--- NOTE | 2020-08-05 18:10 | NUR ---
NURSE NOTES: Dialysis nurse at bedside attaching pt to dialysis machine.
--- NOTE | 2020-08-05 18:30 | NUR ---
NURSE NOTES: Pt receiving dialysis; tolerating well. Cortez, manager program, administered Albumin 25% 100mL
--- NOTE | 2020-08-05 19:05 | NUR ---
NURSE HAND-OFF REPORT: Latest Vital Signs: Temperature 99.2 , Pulse 102 , B/P 93 /50 , Respiratory Rate 16 , O2 SAT 98 , Mechanical Ventilator, FiO2 70% . Vital Sign Comment: EKG Rhythm: Atrial Fibrillation Rhythm change?: N MD Notified?: MD Response: Latest Elizabeth Fall Score: 60 Fall Risk: High Risk Safety Measures: Call light Within Reach, Bed Alarm Zone 1, Side Rails Side Rails x3, Bed position Low and Locked. Fall Precautions: Door Sign Report given to SIDNEY Rivas.
--- NOTE | 2020-08-05 19:06 | NUR ---
NURSE NOTES: Report received from SIDNEY Benítez. Upon assessment pt is asleep, lethargic, PERRLA - nonresponsive to verbal/tactile stimuli EKG shows Afib 104 bpm. BP 93/50. On Levophed drip for hypotension at 6mcg/min. Pt observed on ETT saturating 99% on settings of AC 16/Vt 500/70% fiO2 OGTube running Vital AF at 50mL. Rectal tube observed. Currently getting HD with dialysis nurse at bedside. Right fem TLC patent and intact. Bed kept in lowest and locked position. Bed alarm on. Will continue monitoring.
--- NOTE | 2020-08-05 19:37 | General Progress Note ---
Subjective Allergies: Coded Allergies: No Known Allergies (Unverified , 05/12/17) Subjective above noted no new events d/w RN still not stable for CT scan Objective Last 24 Hour Vital Signs Date Time Temp Pulse Resp B/P (MAP) Pulse Ox O2 Delivery O2 Flow Rate FiO2 08/05/20 19:28 118 18 70 08/05/20 19:00 102 16 93/50 (64) 98 08/05/20 18:45 96 15 104/46 (65) 99 08/05/20 18:30 98 16 121/57 (78) 100 08/05/20 18:15 105 17 147/61 (89) 100 08/05/20 18:10 102 16 139/75 (96) 99 08/05/20 18:00 108 18 118/65 (82) 100 08/05/20 17:30 108 21 121/59 (79) 100 08/05/20 17:00 107 27 124/58 (80) 100 08/05/20 16:30 112 21 120/73 (89) 97 08/05/20 16:00 Mechanical Ventilator 08/05/20 16:00 108 08/05/20 16:00 70 08/05/20 16:00 99.2 108 17 128/58 (81) 99 08/05/20 15:55 102/57 08/05/20 15:37 92/46 08/05/20 15:30 102 20 92/46 (61) 97 08/05/20 15:00 95 14 88/47 (61) 99 08/05/20 15:00 70 08/05/20 14:30 92 14 100/58 (72) 100 08/05/20 14:00 100 16 110/58 (75) 99 08/05/20 13:00 104 15 108/62 (77) 100 08/05/20 12:55 106 20 80 08/05/20 12:30 108 15 105/54 (71) 99 08/05/20 12:15 98.4 114 16 107/54 (71) 99 08/05/20 12:00 105 08/05/20 12:00 Mechanical Ventilator 08/05/20 12:00 113 15 104/52 (69) 99 08/05/20 11:30 121 22 107/54 (71) 99 08/05/20 11:00 80 08/05/20 11:00 126 22 118/58 (78) 98 08/05/20 10:30 117 23 91/52 (65) 98 08/05/20 10:00 113 23 105/50 (68) 98 08/05/20 09:51 95/51 08/05/20 09:30 110 20 95/51 (66) 97 08/05/20 09:00 90 08/05/20 09:00 110 21 97/51 (66) 96 08/05/20 09:00 80 08/05/20 08:30 108 20 103/53 (70) 97 08/05/20 08:00 103 16 107/52 (70) 98 08/05/20 08:00 108 08/05/20 08:00 Mechanical Ventilator 08/05/20 07:30 100 14 114/55 (74) 98 08/05/20 07:10 106 20 90 08/05/20 07:00 101 15 105/57 (73) 98 08/05/20 06:00 99.0 95 22 111/50 (70) 89 08/05/20 05:44 108 151/68 08/05/20 05:00 114 22 129/52 (77) 89 08/05/20 05:00 109 22 140/52 (81) 89 08/05/20 04:30 108 22 126/58 (80) 97 08/05/20 04:00 60 08/05/20 04:00 101 08/05/20 04:00 102.0 108 23 103/50 (67) 96 08/05/20 04:00 Mechanical Ventilator 08/05/20 03:30 107 23 116/56 (76) 96 08/05/20 03:00 112 21 107/56 (73) 98 08/05/20 02:30 117 24 103/52 (69) 97 08/05/20 02:00 118 31 108/54 (72) 98 08/05/20 01:30 117 27 103/51 (68) 97 08/05/20 01:01 124 20 60 08/05/20 01:00 122 32 107/50 (69) 100 08/05/20 00:45 116 26 104/51 (68) 100 08/05/20 00:30 115 26 92/46 (61) 100 08/05/20 00:02 124 101/46 08/05/20 00:00 118 08/05/20 00:00 98.8 124 31 105/50 (68) 100 08/05/20 00:00 Mechanical Ventilator 08/05/20 00:00 60 08/04/20 23:30 126 22 101/45 (63) 100 08/04/20 23:00 124 12 98/47 (64) 100 08/04/20 22:30 115 28 102/50 (67) 100 08/04/20 22:15 112 24 97/44 (61) 100 08/04/20 22:00 113 17 96/43 (60) 100 08/04/20 21:45 115 23 106/47 (66) 100 08/04/20 21:30 112 26 94/46 (62) 100 08/04/20 21:15 103 24 93/43 (60) 100 08/04/20 21:00 101 19 80/45 (57) 100 08/04/20 20:45 98 20 74/52 (59) 100 08/04/20 20:30 100 19 89/45 (60) 100 08/04/20 20:15 106 27 96/45 (62) 100 08/04/20 20:00 Mechanical Ventilator 08/04/20 20:00 101 18 97/44 (61) 100 08/04/20 20:00 60 08/04/20 20:00 101 Intake and Output 08/04/20 08/05/20 19:00 07:00 Intake Total 1046.25 ml 795.0 ml Output Total 50 ml 200 ml Balance 996.25 ml 595.0 ml Free Water 30 ml IV Total 396.25 ml 115.0 ml Tube Feeding 500 ml 650 ml Other 150 ml Stool Total 50 ml 200 ml Laboratory Tests 08/04/20 21:09: POC Whole Blood Glucose 117H 08/05/20 00:09: POC Whole Blood Glucose 117H 08/05/20 05:00: White Blood Count 13.7H, Red Blood Count 2.52L, Hemoglobin 9.1L, Hematocrit 25.2L, Mean Corpuscular Volume 100H, Mean Corpuscular Hemoglobin 36.2H, Mean Corpuscular Hemoglobin Concent 36.2H, Red Cell Distribution Width 17.0H, Platelet Count 110L, Mean Platelet Volume 8.3, Neutrophils (%) (Auto) , Lymphocytes (%) (Auto) , Monocytes (%) (Auto) , Eosinophils (%) (Auto) , Basophils (%) (Auto) , Differential Total Cells Counted 100, Neutrophils % (Manual) 78H, Lymphocytes % (Manual) 2L, Monocytes % (Manual) 6, Eosinophils % (Manual) 1, Basophils % (Manual) 0, Band Neutrophils 13H, Platelet Estimate DecreasedL, Platelet Morphology Normal, Hypochromasia , Anisocytosis 1+, Macrocytosis 1+, Sodium Level 137, Potassium Level 4.1, Chloride Level 97L, Carbon Dioxide Level 25, Anion Gap 15, Blood Urea Nitrogen 115H, Creatinine 5.5H , Estimat Glomerular Filtration Rate 7.6, Glucose Level 152H, Calcium Level 8.9, Phosphorus Level 6.0H, Magnesium Level 1.9, Total Bilirubin 1.8H, Direct Bilirubin 1.4H, Aspartate Amino Transf (AST/SGOT) 46H, Alanine Aminotransferase (ALT/SGPT) 18, Alkaline Phosphatase 347H, C-Reactive Protein, Quantitative 49.3H , Total Protein 6.5, Albumin 1.9L, Globulin 4.6, Albumin/Globulin Ratio 0.4L 08/05/20 05:26: POC Whole Blood Glucose 157H 08/05/20 11:20: POC Whole Blood Glucose 152H 08/05/20 13:39: POC Whole Blood Glucose 182H 08/05/20 17:39: POC Whole Blood Glucose 158H Height (Feet): 5 Height (Inches): 4.00 Weight (Pounds): 180 Objective Elderly woman seen in ICU on vent resting comfortably exam limited due to COVID isolation Assessment/Plan Status: progressing, deteriorating Assessment/Plan: Assessment - Recurrent GI bleed - diarrhea - improved - leukocytosis / shock / sepsis - anemia - s/p multiple endoscopies and colonoscopies this year - resp failure - COPD - COVID PNA - abnormal LFT - presumed COVID related - DM - Poor Px Recommendations - PPI BID - Tube feeds --> VItal AF - follow labs - HD - PRN transfusion - No plans for endoscopy per discussion with family - will check a repeat abd ultrasound, since not stable for CT at this time - order changed to stat - check CT abd / pelvis once more stable Ramakrishna Leonard MD Aug 05, 2020 19:37
--- NOTE | 2020-08-05 20:00 | NUR ---
NURSE NOTES: Call from Dr. Leonard with update in regards to CT ab no contrast. d/w MD that patient is not stable enough for CT. Orders for U/S of abdomen tonight or early AM. Will continue to monitor.
[2020-08-05] MEDS: Dyna-Hex 2% Top Sol 2oz TOPIC SCH (20:43)
--- NOTE | 2020-08-05 21:00 | NUR ---
NURSE NOTES: Levophed drip titrated down to 4 mcg/min for BP of 142/74. No distress noted. HD complete with 2L out.
--- NOTE | 2020-08-05 22:05 | NUR ---
NURSE NOTES: Levophed drip titrated to 2 mcg/min for increasing BP per protocol. Pt in stable condition.
--- NOTE | 2020-08-05 22:40 | General Progress Note ---
Subjective ROS Limited/Unobtainable: Yes Allergies: Coded Allergies: No Known Allergies (Unverified , 05/12/17) Objective Last 24 Hour Vital Signs Date Time Temp Pulse Resp B/P (MAP) Pulse Ox O2 Delivery O2 Flow Rate FiO2 08/05/20 22:00 108 18 143/65 (91) 100 08/05/20 21:00 111 16 142/74 (96) 100 08/05/20 20:00 115 16 94/54 (67) 99 08/05/20 20:00 70 08/05/20 20:00 Mechanical Ventilator 08/05/20 19:28 118 18 70 08/05/20 19:00 102 16 93/50 (64) 98 08/05/20 18:45 96 15 104/46 (65) 99 08/05/20 18:30 98 16 121/57 (78) 100 08/05/20 18:15 105 17 147/61 (89) 100 08/05/20 18:10 102 16 139/75 (96) 99 08/05/20 18:00 108 18 118/65 (82) 100 08/05/20 17:30 108 21 121/59 (79) 100 08/05/20 17:00 107 27 124/58 (80) 100 08/05/20 16:30 112 21 120/73 (89) 97 08/05/20 16:00 Mechanical Ventilator 08/05/20 16:00 108 08/05/20 16:00 70 08/05/20 16:00 99.2 108 17 128/58 (81) 99 08/05/20 15:55 102/57 08/05/20 15:37 92/46 08/05/20 15:30 102 20 92/46 (61) 97 08/05/20 15:00 95 14 88/47 (61) 99 08/05/20 15:00 70 08/05/20 14:30 92 14 100/58 (72) 100 08/05/20 14:00 100 16 110/58 (75) 99 08/05/20 13:00 104 15 108/62 (77) 100 08/05/20 12:55 106 20 80 08/05/20 12:30 108 15 105/54 (71) 99 08/05/20 12:15 98.4 114 16 107/54 (71) 99 08/05/20 12:00 105 08/05/20 12:00 Mechanical Ventilator 08/05/20 12:00 113 15 104/52 (69) 99 08/05/20 11:30 121 22 107/54 (71) 99 08/05/20 11:00 80 08/05/20 11:00 126 22 118/58 (78) 98 08/05/20 10:30 117 23 91/52 (65) 98 08/05/20 10:00 113 23 105/50 (68) 98 08/05/20 09:51 95/51 08/05/20 09:30 110 20 95/51 (66) 97 08/05/20 09:00 90 08/05/20 09:00 110 21 97/51 (66) 96 08/05/20 09:00 80 08/05/20 08:30 108 20 103/53 (70) 97 08/05/20 08:00 103 16 107/52 (70) 98 08/05/20 08:00 108 08/05/20 08:00 Mechanical Ventilator 08/05/20 07:30 100 14 114/55 (74) 98 08/05/20 07:10 106 20 90 08/05/20 07:00 101 15 105/57 (73) 98 08/05/20 06:00 99.0 95 22 111/50 (70) 89 08/05/20 05:44 108 151/68 08/05/20 05:00 114 22 129/52 (77) 89 08/05/20 05:00 109 22 140/52 (81) 89 08/05/20 04:30 108 22 126/58 (80) 97 08/05/20 04:00 60 08/05/20 04:00 101 08/05/20 04:00 102.0 108 23 103/50 (67) 96 08/05/20 04:00 Mechanical Ventilator 08/05/20 03:30 107 23 116/56 (76) 96 08/05/20 03:00 112 21 107/56 (73) 98 08/05/20 02:30 117 24 103/52 (69) 97 08/05/20 02:00 118 31 108/54 (72) 98 08/05/20 01:30 117 27 103/51 (68) 97 08/05/20 01:01 124 20 60 08/05/20 01:00 122 32 107/50 (69) 100 08/05/20 00:45 116 26 104/51 (68) 100 08/05/20 00:30 115 26 92/46 (61) 100 08/05/20 00:02 124 101/46 08/05/20 00:00 118 08/05/20 00:00 98.8 124 31 105/50 (68) 100 08/05/20 00:00 Mechanical Ventilator 08/05/20 00:00 60 08/04/20 23:30 126 22 101/45 (63) 100 08/04/20 23:00 124 12 98/47 (64) 100 Intake and Output 08/04/20 08/05/20 19:00 07:00 Intake Total 1046.25 ml 795.0 ml Output Total 50 ml 200 ml Balance 996.25 ml 595.0 ml Free Water 30 ml IV Total 396.25 ml 115.0 ml Tube Feeding 500 ml 650 ml Other 150 ml Stool Total 50 ml 200 ml Laboratory Tests 08/05/20 00:09: POC Whole Blood Glucose 117H 08/05/20 05:00: White Blood Count 13.7H, Red Blood Count 2.52L, Hemoglobin 9.1L, Hematocrit 25.2L, Mean Corpuscular Volume 100H, Mean Corpuscular Hemoglobin 36.2H, Mean Corpuscular Hemoglobin Concent 36.2H, Red Cell Distribution Width 17.0H, Platelet Count 110L, Mean Platelet Volume 8.3, Neutrophils (%) (Auto) , Lymphocytes (%) (Auto) , Monocytes (%) (Auto) , Eosinophils (%) (Auto) , Basophils (%) (Auto) , Differential Total Cells Counted 100, Neutrophils % (Manual) 78H, Lymphocytes % (Manual) 2L, Monocytes % (Manual) 6, Eosinophils % (Manual) 1, Basophils % (Manual) 0, Band Neutrophils 13H, Platelet Estimate DecreasedL, Platelet Morphology Normal, Hypochromasia , Anisocytosis 1+, Macroc ytosis 1+, Sodium Level 137, Potassium Level 4.1, Chloride Level 97L, Carbon Dioxide Level 25, Anion Gap 15, Blood Urea Nitrogen 115H, Creatinine 5.5H, Estimat Glomerular Filtration Rate 7.6, Glucose Level 152H, Calcium Level 8.9, Phosphorus Level 6.0H, Magnesium Level 1.9, Total Bilirubin 1.8H, Direct Bilirubin 1.4H, Aspartate Amino Transf (AST/SGOT) 46H, Alanine Aminotransferase (ALT/SGPT) 18, Alkaline Phosphatase 347H, C-Reactive Protein, Quantitative 49.3H , Total Protein 6.5, Albumin 1.9L, Globulin 4.6, Albumin/Globulin Ratio 0.4L 08/05/20 05:26: POC Whole Blood Glucose 157H 08/05/20 11:20: POC Whole Blood Glucose 152H 08/05/20 13:39: POC Whole Blood Glucose 182H 08/05/20 17:39: POC Whole Blood Glucose 158H 08/05/20 20:33: POC Whole Blood Glucose 94 Height (Feet): 5 Height (Inches): 4.00 Weight (Pounds): 180 Assessment/Plan Problem List: (1) Pneumonia ICD Codes: J18.9 - Pneumonia, unspecified organism SNOMED: 191556997 (2) Hypertension ICD Codes: I10 - Essential (primary) hypertension SNOMED: 85533872 (3) Renal failure ICD Codes: N19 - Unspecified kidney failure SNOMED: 76338140 (4) Anemia in chronic kidney disease (CKD) ICD Codes: N18.9 - Chronic kidney disease, unspecified; D63.1 - Anemia in chronic kidney disease SNOMED: 564458261 (5) weakness (6) ESRD (end stage renal disease) ICD Codes: N18.6 - End stage renal disease SNOMED: 45184401 (7) Diabetic nephropathy with proteinuria ICD Codes: E11.21 - Type 2 diabetes mellitus with diabetic nephropathy SNOMED: 96215361, 661455628 Status: progressing, deteriorating Assessment/Plan: hypotensive on pressors deterioating intubated copd niddm esrd on hd resp failure niddm covid positive pna intubated unable to wean per pulmonary off pressor weak covid + niddm copd lethrgic poor prognosis Makenna Daniel MD Aug 05, 2020 22:40
[2020-08-06] VITALS (29 sets, daily range): BP systolic 73–148; BP diastolic 27–81
[2020-08-06] MEDS: Piperacillin/Tazobactam 2.25 GM in D5W 55 ML IV SCH ×2 (01:03→09:02)
[2020-08-06] MEDS: Acetaminophen 650mg/20.3ml NG PRN (03:21)
--- NOTE | 2020-08-06 04:20 | NUR ---
NURSE NOTES: Held Levophed for SBP in 140's. Pt in stable condition and sustaining BP without pressers.
[2020-08-06] MEDS: Midodrine 10mg tab ORAL SCH ×2 (05:17→13:52)
[2020-08-06] MEDS: NovoLOG Insulin Flexpen SUBQ SCH ×3 (05:17→17:05)
--- NOTE | 2020-08-06 05:30 | NUR ---
NURSE NOTES: Blood pressure decreased to 70's systolic.. Resumed Levophed at 2mcg/min as ordered to keep SBP >90. Will monitor.
--- NOTE | 2020-08-06 05:49 | NUR ---
NURSE NOTES: Followed up with Ultrasound in regards to STAT U/S per Dr. Leonard orders. Awaiting call back from tech. Patient BP increasing to 82/62. Will monitor.
--- NOTE | 2020-08-06 06:25 | NUR ---
NURSE NOTES: Called [facility] for STAT order x3 during shift. No answer. BP 107/42 with levophed continued at 2mcg/min. In stable condition. Will monitor.
[2020-08-06 07:05] LABS: HEMATOCRIT 25.3 % (37.0-47.0); HEMOGLOBIN 8.5 G/DL (12.0-16.0); MEAN CORPUSCULAR VOLUME 104 FL (80-99); PLATELET COUNT 81 K/UL (150-450); RED BLOOD COUNT 2.44 M/UL (4.20-5.40); RED CELL DISTRIBUTION WIDTH 16.6 % (11.6-14.8); WHITE BLOOD COUNT 8.9 K/UL (4.8-10.8)
--- NOTE | 2020-08-06 07:10 | Hematology/Onc Progress Note ---
Assessment/Plan Assessment/Plan Assessment/Plan 1. Pancytopenia with hx anemia due to underlying chronic disease. Have reviewed prior workup, ferritin is >1000, covid19++++ --> Continue to closely monitor. --> Transfuse if hgb <7 --> ferritin is >1000 --> give epogen, has been started 3x a week --> as per renal --> monitor for gi bleed, gi consulted --> hgb trend 7.8-->9.3->8.9->>11-->9.5->8.9->8->8.2-->7.6-->6.8->10->8 --> plt 42-->50-->65-->104-->109-->176-->81 --> ABX zosyn --> smear has been reviewed --> hep and hiv neg -> prbc 08/02 2. LEUKOCYTOSIS now, prior was Leukopenia likely reactive process v infection covid19++++ --> hepatitis and hiv prior negative --> neutropenic precautions if ANC <1500 --> trending stable --> imaging reviewed and no hsm / cirrhosis noted --> wbc 2.7-->3.6->>>2->5-->8-->17->12-->11-->24 --> increase in wbc due to steriods --> ANC goal >1500 3. End-stage renal disease, on hemodialysis three times a week. --> renal consulted --> continue hd 4. History of coronary artery disease. --> cards reviewed --> diuresis prn 5. History of anemia due to low B12, low iron --> b12 is currently within normal limits --> reobtain q6mo 6. Dizziness and unsteady gait 7. Covid 19 --> rx per id 8. DVt ppsx with SCDs Greatly appreciate consultation and Inocencio RN Subjective HEENT: Denies: no symptoms, eye pain, blurred vision, tearing, double vision, ear pain, ear discharge, nose pain, nose congestion, throat pain, throat swelling, mouth pain, mouth swelling, other Cardiovascular: Denies: no symptoms, chest pain, edema, irregular heart rate, lightheadedness, palpitations, syncope, other Respiratory: Denies: no symptoms, cough, shortness of breath, SOB with excertion, SOB at rest, sputum, wheezing, other Allergies: Coded Allergies: No Known Allergies (Unverified , 05/12/17) All Systems: reviewed and negative except above Subjective 07/19 meds noted, s/p hd, bp has improved, no bleeding, labs reviewed 07/20 labs are noted, no bleeding, meds reviewed, no major changes, hgb 9.5 07/22 remains in the icu, no bleeding, meds reviewed, on nc 07/23 labs noted, no bleeding, in icu, hgb 8.7, plt 90 07/24 is intubated, hgb 11, no bleeding, plt are better, meds reviewed 07/25 remains on zosyn, labs are noted, no bleeding, icu, meds ntoed, s/p hd yesterday with renal 07/26 seen at bedside with Justo Toro, doing HD today, is in the icu, have ordered epo 07/27 black tarry stools overnight, no bleeding, labs reviewed, plt better 07/29 restraints, is agitated, no bleeding, hgb 8.2, improved s/p transfusion 07/30 restraints, is for rectal tube insertion today for diarrhea 07/31 hd was done yesterday, labs reviewed, meds noted, for duplex today then scds 08/01 hd as needed, did have fever overnight is on zosyn 08/02 labs noted, pending cbc for the am, 1 unit prbc is ordered, bryant Davis Rn lower 08/03 remains in icu, restraints, abx, wbc 24, hgb 10 12: lethargic not following commands, no distress 3: labs reviewed hgb 9.1 remains lethargic. 08/06 on levo, epio, zosyn, in icu, holding off ct, remains lethargic, inocencio Kemp Objective Objective Current Medications Medications (Trade) Dose Ordered Sig/Toya Route PRN Reason Start Time Stop Time Status Last Admin Dose Admin Acetaminophen (Tylenol) 650 mg EVERY 6 HOURS PRN NG Mild Pain (Pain Scale 1-3) 07/29/20 09:05 08/28/20 09:04 08/06/20 03:21 Acetaminophen (Tylenol) 650 mg EVERY 6 HOURS PRN NG Temp >100.5 07/29/20 09:15 08/28/20 09:14 08/02/20 08:17 Chlorhexidine Gluconate (Yessi-Hex 2%) 1 applic DAILY@2000 TOPIC 07/21/20 20:00 10/19/20 19:59 08/05/20 20:43 Clonidine HCl (Catapres Tab) 0.1 mg Q4H PRN NG bp over 165 syst 07/21/20 12:00 10/14/20 22:44 Dextrose (Dextrose 50%) 25 ml Q30M PRN IV Hypoglycemia 07/22/20 08:00 10/20/20 07:59 08/04/20 18:19 Dextrose (Dextrose 50%) 50 ml Q30M PRN IV Hypoglycemia 07/22/20 08:00 10/20/20 07:59 Epoetin Panchito (Epoetin Panchito(ESRD on dialysis)) 2,000 unit THU-THU-THU SUBQ 08/03/20 21:00 11/01/20 20:59 08/03/20 21:16 Epoetin Panchito (Epoetin Panchito(ESRD on dialysis)) 8,000 unit THU-THU-THU SUBQ 08/03/20 21:00 11/01/20 20:59 08/03/20 21:16 Haloperidol Lactate (Haldol) 5 mg Q6H PRN IM Agitation 07/17/20 17:30 08/31/20 17:29 08/01/20 12:13 Insulin Aspart (NovoLOG) Q6HR SUBQ 07/22/20 08:15 10/20/20 11:29 08/05/20 17:52 Insulin Detemir (Levemir) 12 units Q12HR SUBQ 07/24/20 09:00 10/20/20 09:59 08/05/20 11:28 Loperamide HCl (Imodium) 2 mg Q6H PRN NG Diarrhea 07/29/20 15:45 08/28/20 15:44 Midodrine (Pro-Amatine) 10 mg Q8HR ORAL 08/03/20 16:30 11/01/20 16:29 08/06/20 05:17 Norepinephrine Bitartrate 250 ml @ 7.5 mls/hr Q24H IV 08/05/20 15:45 08/08/20 15:36 08/05/20 15:55 Pantoprazole (Protonix) 40 mg EVERY 12 HOURS IVP 07/21/20 21:00 08/20/20 20:59 08/05/20 20:43 Piperacillin Sod/ Tazobactam Sod 2.25 gm/Dextrose 55 ml @ 110 mls/hr Q8HR@0200,1000,1800 IV 08/03/20 10:00 08/10/20 09:59 08/06/20 01:03 Quetiapine Fumarate (SEROqueL) 50 mg Q12HR ORAL 08/05/20 09:00 09/13/20 20:59 08/05/20 10:15 Vitamin D (Vitamin D) 5,000 unit DAILY ORAL 07/29/20 09:00 08/28/20 08:59 08/05/20 11:29 Last 24 Hour Vital Signs Date Time Temp Pulse Resp B/P (MAP) Pulse Ox O2 Delivery O2 Flow Rate FiO2 08/06/20 06:00 108 18 92/54 (67) 99 08/06/20 05:00 100 16 73/44 (54) 99 08/06/20 04:00 97.9 106 20 140/65 (90) 99 08/06/20 04:00 70 08/06/20 04:00 108 08/06/20 04:00 Mechanical Ventilator 08/06/20 03:51 97.9 08/06/20 03:00 100.1 120 20 119/50 (73) 98 08/06/20 02:00 108 14 109/50 (69) 98 08/06/20 01:00 104 16 134/53 (80) 100 08/06/20 01:00 106 17 70 08/06/20 00:00 70 08/06/20 00:00 102 08/06/20 00:00 99.0 108 18 138/81 (100) 99 08/06/20 00:00 Mechanical Ventilator 08/05/20 23:00 96 16 128/55 (79) 100 08/05/20 22:00 108 18 143/65 (91) 100 08/05/20 21:00 111 16 142/74 (96) 100 08/05/20 20:00 98.0 115 16 94/54 (67) 99 08/05/20 20:00 70 08/05/20 20:00 123 08/05/20 20:00 Mechanical Ventilator 08/05/20 19:28 118 18 70 08/05/20 19:00 102 16 93/50 (64) 98 08/05/20 18:45 96 15 104/46 (65) 99 08/05/20 18:30 98 16 121/57 (78) 100 08/05/20 18:15 105 17 147/61 (89) 100 08/05/20 18:10 102 16 139/75 (96) 99 08/05/20 18:00 108 18 118/65 (82) 100 08/05/20 17:30 108 21 121/59 (79) 100 08/05/20 17:00 107 27 124/58 (80) 100 08/05/20 16:30 112 21 120/73 (89) 97 08/05/20 16:00 Mechanical Ventilator 08/05/20 16:00 108 08/05/20 16:00 70 08/05/20 16:00 99.2 108 17 128/58 (81) 99 08/05/20 15:55 102/57 08/05/20 15:37 92/46 08/05/20 15:30 102 20 92/46 (61) 97 08/05/20 15:00 95 14 88/47 (61) 99 08/05/20 15:00 70 08/05/20 14:30 92 14 100/58 (72) 100 08/05/20 14:00 100 16 110/58 (75) 99 08/05/20 13:00 104 15 108/62 (77) 100 08/05/20 12:55 106 20 80 08/05/20 12:30 108 15 105/54 (71) 99 08/05/20 12:15 98.4 114 16 107/54 (71) 99 08/05/20 12:00 105 08/05/20 12:00 Mechanical Ventilator 08/05/20 12:00 113 15 104/52 (69) 99 08/05/20 11:30 121 22 107/54 (71) 99 08/05/20 11:00 80 08/05/20 11:00 126 22 118/58 (78) 98 08/05/20 10:30 117 23 91/52 (65) 98 08/05/20 10:00 113 23 105/50 (68) 98 08/05/20 09:51 95/51 08/05/20 09:30 110 20 95/51 (66) 97 08/05/20 09:00 90 08/05/20 09:00 110 21 97/51 (66) 96 08/05/20 09:00 80 08/05/20 08:30 108 20 103/53 (70) 97 08/05/20 08:00 103 16 107/52 (70) 98 08/05/20 08:00 108 08/05/20 08:00 Mechanical Ventilator 08/05/20 07:30 100 14 114/55 (74) 98 08/05/20 07:10 106 20 90 08/05/20 07:00 101 15 105/57 (73) 98 08/05/20 06:00 99.0 95 22 111/50 (70) 89 08/05/20 05:44 108 151/68 08/05/20 05:00 114 22 129/52 (77) 89 08/05/20 05:00 109 22 140/52 (81) 89 08/05/20 04:30 108 22 126/58 (80) 97 08/05/20 04:00 60 08/05/20 04:00 101 08/05/20 04:00 102.0 108 23 103/50 (67) 96 08/05/20 04:00 Mechanical Ventilator 08/05/20 03:30 107 23 116/56 (76) 96 08/05/20 03:00 112 21 107/56 (73) 98 08/05/20 02:30 117 24 103/52 (69) 97 08/05/20 02:00 118 31 108/54 (72) 98 08/05/20 01:30 117 27 103/51 (68) 97 08/05/20 01:01 124 20 60 08/05/20 01:00 122 32 107/50 (69) 100 08/05/20 00:45 116 26 104/51 (68) 100 08/05/20 00:30 115 26 92/46 (61) 100 08/05/20 00:02 124 101/46 08/05/20 00:00 118 08/05/20 00:00 98.8 124 31 105/50 (68) 100 08/05/20 00:00 Mechanical Ventilator 08/05/20 00:00 60 08/04/20 23:30 126 22 101/45 (63) 100 08/04/20 23:00 124 12 98/47 (64) 100 08/04/20 22:30 115 28 102/50 (67) 100 08/04/20 22:15 112 24 97/44 (61) 100 08/04/20 22:00 113 17 96/43 (60) 100 08/04/20 21:45 115 23 106/47 (66) 100 08/04/20 21:30 112 26 94/46 (62) 100 08/04/20 21:15 103 24 93/43 (60) 100 08/04/20 21:00 101 19 80/45 (57) 100 08/04/20 20:45 98 20 74/52 (59) 100 08/04/20 20:30 100 19 89/45 (60) 100 08/04/20 20:15 106 27 96/45 (62) 100 08/04/20 20:00 Mechanical Ventilator 08/04/20 20:00 101 18 97/44 (61) 100 08/04/20 20:00 60 08/04/20 20:00 101 08/04/20 19:30 104 16 110/52 (71) 100 08/04/20 19:00 101 23 115/42 (66) 94 08/04/20 18:44 101 19 96 Mechanical Ventilator 100 08/04/20 18:42 100 19 100 08/04/20 18:30 97.9 109 24 109/53 (71) 100 08/04/20 18:21 121 130/54 08/04/20 18:00 113 20 108/61 (77) 100 08/04/20 17:30 119 20 110/48 (68) 100 08/04/20 17:00 119 20 110/48 (68) 100 08/04/20 16:30 100.5 131 20 100/51 (67) 100 08/04/20 16:00 100 08/04/20 16:00 Mechanical Ventilator 08/04/20 16:00 135 21 95/44 (61) 100 08/04/20 15:55 115 23 100 08/04/20 15:30 115 22 102/48 (66) 100 08/04/20 15:25 133 08/04/20 15:00 120 20 105/58 (74) 100 08/04/20 14:30 104 19 108/45 (66) 100 08/04/20 14:00 101 22 94/51 (65) 100 08/04/20 13:30 97 17 108/50 (69) 100 08/04/20 13:00 94 14 111/66 (81) 100 08/04/20 12:30 99 17 129/55 (79) 100 08/04/20 12:00 Mechanical Ventilator 08/04/20 12:00 100 08/04/20 12:00 96.4 99 20 125/61 (82) 100 08/04/20 11:45 100 19 118/73 (88) 100 08/04/20 11:30 106 08/04/20 11:30 105 21 118/73 (88) 100 08/04/20 11:15 105 18 154/68 (96) 100 08/04/20 11:00 104 20 144/70 (94) 100 08/04/20 10:45 99.4 107 20 170/73 (105) 100 08/04/20 10:30 103 20 177/65 (102) 100 08/04/20 10:15 104 17 160/63 (95) 100 08/04/20 10:00 106 21 159/67 (97) 100 08/04/20 09:46 152/61 08/04/20 09:45 107 21 137/58 (84) 100 08/04/20 09:30 112 20 134/47 (76) 100 08/04/20 09:00 96 23 98/45 (62) 100 08/04/20 08:30 102 27 90/31 (50) 100 08/04/20 08:00 100 08/04/20 08:00 100.4 132 22 120/56 (77) 100 08/04/20 08:00 Mechanical Ventilator 08/04/20 07:53 126 08/04/20 07:30 133 24 154/72 (99) 100 08/04/20 07:16 118 16 100 Intake and Output 08/05/20 08/06/20 19:00 07:00 Intake Total 833.125 ml 457.5 ml Output Total 700 ml 2000 ml Balance 133.125 ml -1542.5 ml IV Total 133.125 ml 207.5 ml Tube Feeding 600 ml 250 ml Other 100 ml Stool Total 700 ml Hemodialysis UF 2000 ml Labs Test 08/03/20 09:15 08/03/20 11:52 08/03/20 17:46 08/03/20 21:19 Test 08/03/20 23:58 08/04/20 03:45 08/04/20 06:25 08/04/20 09:25 POC Whole Blood Glucose 181 MG/DL (74-106) 251 MG/DL (74-106) White Blood Count 23.7 K/UL (4.8-10.8) Red Blood Count 2.41 M/UL (4.20-5.40) Hemoglobin 9.6 G/DL (12.0-16.0) Hematocrit 24.8 % (37.0-47.0) Mean Corpuscular Volume 103 FL (80-99) Mean Corpuscular Hemoglobin 39.7 PG (27.0-31.0) Mean Corpuscular Hemoglobin Concent 38.6 G/DL (32.0-36.0) Red Cell Distribution Width 15.9 % (11.6-14.8) Platelet Count 162 K/UL (150-450) Mean Platelet Volume 8.3 FL (6.5-10.1) Neutrophils (%) (Auto) % (45.0-75.0) Lymphocytes (%) (Auto) % (20.0-45.0) Monocytes (%) (Auto) % (1.0-10.0) Eosinophils (%) (Auto) % (0.0-3.0) Basophils (%) (Auto) % (0.0-2.0) Differential Total Cells Counted 100 Neutrophils % (Manual) 93 % (45-75) Lymphocytes % (Manual) 1 % (20-45) Monocytes % (Manual) 2 % (1-10) Eosinophils % (Manual) 1 % (0-3) Basophils % (Manual) 0 % (0-2) Band Neutrophils 3 % (0-8) Platelet Estimate Adequate Platelet Morphology Normal Hypochromasia 1+ Anisocytosis 1+ Macrocytosis 1+ Sodium Level 137 MMOL/L (136-145) Potassium Level 4.3 MMOL/L (3.5-5.1) Chloride Level 96 MMOL/L (98-107) Carbon Dioxide Level 26 MMOL/L (21-32) Anion Gap 15 mmol/L (5-15) Blood Urea Nitrogen 93 mg/dL (7-18) Creatinine 4.8 MG/DL (0.55-1.30) Estimat Glomerular Filtration Rate 9.0 mL/min (>60) Glucose Level 246 MG/DL (74-106) Calcium Level 9.2 MG/DL (8.5-10.1) Phosphorus Level 7.6 MG/DL (2.5-4.9) Magnesium Level 2.0 MG/DL (1.8-2.4) Total Bilirubin 2.1 MG/DL (0.2-1.0) Direct Bilirubin 1.5 MG/DL (0.0-0.3) Aspartate Amino Transf (AST/SGOT) 45 U/L (15-37) Alanine Aminotransferase (ALT/SGPT) 20 U/L (12-78) Alkaline Phosphatase 365 U/L (46-116) C-Reactive Protein, Quantitative 39.0 mg/dL (0.00-0.90) Pro-B-Type Natriuretic Peptide > 38660 pg/mL (0-125) Total Protein 6.9 G/DL (6.4-8.2) Albumin 2.2 G/DL (3.4-5.0) Globulin 4.7 g/dL Albumin/Globulin Ratio 0.5 (1.0-2.7) Test 08/04/20 12:43 08/04/20 18:09 08/04/20 18:10 08/04/20 18:48 POC Whole Blood Glucose 63 MG/DL (74-106) Test 08/04/20 21:09 08/05/20 00:09 08/05/20 05:00 08/05/20 05:26 POC Whole Blood Glucose 117 MG/DL (74-106) 117 MG/DL (74-106) 157 MG/DL (74-106) White Blood Count 13.7 K/UL (4.8-10.8) Red Blood Count 2.52 M/UL (4.20-5.40) Hemoglobin 9.1 G/DL (12.0-16.0) Hematocrit 25.2 % (37.0-47.0) Mean Corpuscular Volume 100 FL (80-99) Mean Corpuscular Hemoglobin 36.2 PG (27.0-31.0) Mean Corpuscular Hemoglobin Concent 36.2 G/DL (32.0-36.0) Red Cell Distribution Width 17.0 % (11.6-14.8) Platelet Count 110 K/UL (150-450) Mean Platelet Volume 8.3 FL (6.5-10.1) Neutrophils (%) (Auto) % (45.0-75.0) Lymphocytes (%) (Auto) % (20.0-45.0) Monocytes (%) (Auto) % (1.0-10.0) Eosinophils (%) (Auto) % (0.0-3.0) Basophils (%) (Auto) % (0.0-2.0) Differential Total Cells Counted 100 Neutrophils % (Manual) 78 % (45-75) Lymphocytes % (Manual) 2 % (20-45) Monocytes % (Manual) 6 % (1-10) Eosinophils % (Manual) 1 % (0-3) Basophils % (Manual) 0 % (0-2) Band Neutrophils 13 % (0-8) Platelet Estimate Decreased Platelet Morphology Normal Hypochromasia Anisocytosis 1+ Macrocytosis 1+ Sodium Level 137 MMOL/L (136-145) Potassium Level 4.1 MMOL/L (3.5-5.1) Chloride Level 97 MMOL/L (98-107) Carbon Dioxide Level 25 MMOL/L (21-32) Anion Gap 15 mmol/L (5-15) Blood Urea Nitrogen 115 mg/dL (7-18) Creatinine 5.5 MG/DL (0.55-1.30) Estimat Glomerular Filtration Rate 7.6 mL/min (>60) Glucose Level 152 MG/DL (74-106) Calcium Level 8.9 MG/DL (8.5-10.1) Phosphorus Level 6.0 MG/DL (2.5-4.9) Magnesium Level 1.9 MG/DL (1.8-2.4) Total Bilirubin 1.8 MG/DL (0.2-1.0) Direct Bilirubin 1.4 MG/DL (0.0-0.3) Aspartate Amino Transf (AST/SGOT) 46 U/L (15-37) Alanine Aminotransferase (ALT/SGPT) 18 U/L (12-78) Alkaline Phosphatase 347 U/L (46-116) C-Reactive Protein, Quantitative 49.3 mg/dL (0.00-0.90) Total Protein 6.5 G/DL (6.4-8.2) Albumin 1.9 G/DL (3.4-5.0) Globulin 4.6 g/dL Albumin/Globulin Ratio 0.4 (1.0-2.7) Test 08/05/20 11:20 08/05/20 13:39 08/05/20 17:39 08/05/20 20:33 POC Whole Blood Glucose 152 MG/DL (74-106) 182 MG/DL (74-106) 158 MG/DL (74-106) 94 MG/DL (74-106) Test 08/05/20 23:53 08/06/20 05:06 08/06/20 06:28 POC Whole Blood Glucose 107 MG/DL (74-106) 120 MG/DL (74-106) White Blood Count 8.9 K/UL (4.8-10.8) Red Blood Count 2.44 M/UL (4.20-5.40) Hemoglobin 8.5 G/DL (12.0-16.0) Hematocrit 25.3 % (37.0-47.0) Mean Corpuscular Volume 104 FL (80-99) Mean Corpuscular Hemoglobin 34.8 PG (27.0-31.0) Mean Corpuscular Hemoglobin Concent 33.6 G/DL (32.0-36.0) Red Cell Distribution Width 16.6 % (11.6-14.8) Platelet Count 81 K/UL (150-450) Mean Platelet Volume 9.1 FL (6.5-10.1) Neutrophils (%) (Auto) % (45.0-75.0) Lymphocytes (%) (Auto) % (20.0-45.0) Monocytes (%) (Auto) % (1.0-10.0) Eosinophils (%) (Auto) % (0.0-3.0) Basophils (%) (Auto) % (0.0-2.0) Height (Feet): 5 Height (Inches): 4.00 Weight (Pounds): 180 Objective Physical Exam General Appearance: alert, obese, Chronically Ill Neck: full range of motion Respiratory: wheezing Cardiovascular: edema Gastrointestinal: normal inspection, soft Neurologic: alert, or assistant III-XII nml as tested Psychiatric: normal inspection, judgement/insight normal Skin: other Carl Daniels MD Aug 06, 2020 07:10
--- NOTE | 2020-08-06 07:27 | NUR ---
NURSE HAND-OFF REPORT: Latest Vital Signs: Temperature 99.5 , Pulse 102 , B/P 125 /60 , Respiratory Rate 16 , O2 SAT 100 , Nasal Cannula, O2 Flow Rate 3.0 . Vital Sign Comment: BP remains unstable off levophed pressor. EKG Rhythm: Atrial Fibrillation Rhythm change?: N MD Notified?: MD Response: Latest Elizabeth Fall Score: 60 Fall Risk: High Risk Safety Measures: Call light Within Reach, Bed Alarm Zone 1, Side Rails Side Rails x3, Bed position Low and Locked. Fall Precautions: Door Sign Report given to SIDNEY Castro.
--- NOTE | 2020-08-06 07:30 | NUR ---
NURSE NOTES: Received report from SIDNEY Rivas. The patient is resting on the bed but has mild labored breathing at this time. The patient is AOx0-1, opening eyes with tactile stimuli but not following command. Communication made by facial expression and body movement. Afib w/ HR of 90-120s on the registered nurse cardiac telemetry. The patient is orally intubated on following setting and oxygen saturation is 100%: ETT 7.5 Lip line @ 24 AC 16 TV 500 FiO2 70% PEEP 10. The patient has OGT that is intact and patent and has tube feeding order Vital AF @ 50mL/hr but is on hold w/ NPO prior to abdominal ultrasound for possible GIB. The patient has rectal tube that is intact and patent and draining by gravity. The patient is anuric. The patient has SHAMEKA AV shunt that is intact. The patient has R femoral TLC that is intact and patent and running Levophed 2mcg/min due to hypotension. The patient's bed in the lowest position, call light in reach, and fall and aspiration precaution reinforced. IV site intact and patent. Will follow up the order and lab. Will continue plan of care.
--- NOTE | 2020-08-06 08:00 | NUR ---
NURSE NOTES: Morning nursing assessment done. The patient is stable at this time. Will closely monitor the patient. Will continue plan of care.
[2020-08-06 08:02] LABS: ALANINE AMINOTRANSFERASE 23 U/L (12-78); ALBUMIN 2.3 G/DL (3.4-5.0); ALBUMIN/GLOBULIN RATIO 0.5 (1.0-2.7); ALKALINE PHOSPHATASE 205 U/L (46-116); ANION GAP 11 mmol/L (5-15); ASPARTATE AMINO TRANSFERASE 70 U/L (15-37); BILIRUBIN,TOTAL 2.5 MG/DL (0.2-1.0); BLOOD UREA NITROGEN 63 mg/dL (7-18); CALCIUM 9.2 MG/DL (8.5-10.1); CARBON DIOXIDE 31 MMOL/L (21-32); CHLORIDE 98 MMOL/L (98-107); CREATININE 3.3 MG/DL (0.55-1.30); PHOSPHORUS 4.6 MG/DL (2.5-4.9); SODIUM 140 MMOL/L (136-145)
[2020-08-06] MEDS: Vitamin D 1000 units Tab ORAL SCH (09:00)
[2020-08-06] MEDS: Pantoprazole Inj IVP SCH ×2 (09:00→20:44)
[2020-08-06] MEDS: Levemir Flexpen SUBQ SCH ×2 (09:25→21:19)
--- NOTE | 2020-08-06 10:00 | NUR ---
NURSE NOTES: Morning medications administered per order. The patient tolerated well. Will closely monitor the patient. Will continue plan of care. Addendum: 08/06/20 at 2140 by Jesus Ty RN BS 135 noted. 1/2 dose of Levemir administered as the patient is kept in NPO. Will closely monitor the patient. Will continue plan of care.
--- NOTE | 2020-08-06 10:00 | NUR ---
NURSE NOTES: Dr. Daniels was notified regarding downtrending plt from 110 to [address] Daniels ordered 1 unit platelet transfusion to be done. Will closely monitor the patient. Will continue plan of care.
--- NOTE | 2020-08-06 11:30 | NUR ---
NURSE NOTES: Dr. Gatica was notified regarding the patient's episode of Afib w/ RVR w/ HR of 130-170s. EKG taken and notified to Dr. Gatica. No new order at this time. Will closely monitor the patient. Will continue plan of care.
[2020-08-06] MEDS: Norepinephrine 4mg/NS Premix 250 ML IV SCH ×2 (11:44→21:30)
--- NOTE | 2020-08-06 11:53 | Diagnostic Imaging Report ---
Indication: Abnormal liver function tests, Covid positive patient Technique: Limited grayscale and duplex images of the right upper quadrant with Doppler interrogation of the vessels Comparison: 07/19/2020 Findings: The pancreas is unremarkable. The liver demonstrates coarsened echogenicity, long axis dimension 17.8 cm, previously 18.7 no focal abnormality. Nonaneurysmal proximal abdominal aorta, distal aorta obscured. Mildly distended inferior vena cava. Right kidney measures 8.5 cm in length, demonstrates increased echogenicity. Gallbladder demonstrates stones and sludge. Gallbladder wall is thickened, measuring 5 mm in thickness. There is a small amount of free fluid adjacent to the gallbladder. The common bile duct measures 5 mm in diameter. Sonographic Perez's could not be assessed, due to patient condition. The left kidney and spleen could not be visualized. There is a right pleural effusion Impression: Limited exam, as described Coarsened hepatic echogenicity, likely hepatocellular disease Trace ascites, not evident on most recent previous exam but seen on even earlier studies Right pleural effusion again demonstrated Cholelithiasis as well as gallbladder sludge. Gallbladder wall thickening is probably related to whatever process is causing ascites and pleural fluid, but the possibility of acute cholecystitis should also be considered. Consider hepatobiliary nuclear scan if there is high clinical suspicion Echogenic small right kidney, consistent with medical renal disease, also reported previously
--- NOTE | 2020-08-06 12:18 | Nephrology Progress Note ---
Assessment/Plan Problem List: (1) Hypertensive kidney disease (2) ESRD (end stage renal disease) (3) Hyperkalemia (4) Suspected 2019 novel coronavirus infection (5) Acute respiratory failure Assessment 70-year-old female with end-stage renal disease Presented with volume overload and hyperkalemia Suspected COVID-19 virus infection Hypertensive emergency Diabetes mellitus CHF Plan August 06: Patient was dialyzed yesterday. Labs reviewed. Status quo. Remains intubated on ventilator. Remains full code. The dialysis as needed. August 05: Labs reviewed. Due for dialysis today. Will aim to keep the blood pressure over 95 systolic. Medication list reviewed. Albumin bolus given August 04: Status quo. Will attempt dialysis tomorrow. Blood pressure borderline. Continue per consultants. August 03: Patient remains intubated on ventilator. Transfused yesterday. Leukocytosis worsened. Blood pressure 90 systolic. Will start on midodrine. Continue per consultants. Check lab tomorrow. August 02: Discussed with RN. Patient due for transfusion due to rectal bleed. No dialysis scheduled today. Optimize cardiac and pulmonary status. Dialysis as needed. August 01: Discussed with RN. Patient had dry ultrafiltration yesterday. Patient will have dialysis and ultrafiltration today. Labs reviewed. Continue pe r consultants. July 31: Discussed with RN. Discussed with hall clerk. Chest x-ray still looks wet. Despite of having been dialyzed yesterday we arrange for dialysis and ultrafiltration today and probably tomorrow. Labs reviewed. Per orders. July 30: Patient on dialysis now. Tolerating well. Labs and medications reviewed. Continue per consultants. Hemoglobin mid sevens. On 10,000 units of Epogen. Transfusion if needed. July 29: Dialyzed yesterday. Due for dialysis tomorrow. Labs reviewed. Iron panel ordered. Epogen dose increased. Continue per consultants. Vitamin D level pending July 28: Patient is about to get started on dialysis. Labs reviewed. Blood pressure 90 to 100 systolic. Continue per consultants. July 27: Patient dialyzed July 26. Labs reviewed. Status quo. Dialysis again in a.m. July 26: Patient was dialyzed this morning. Labs reviewed. Remains intubated on ventilator. Full code. Tachycardic. Continue per consultants. Per orders. July 25: Patient was dialyzed yesterday. 2 L ultrafiltrate it. Discussed with order worker today. Attempts at weaning is being tried. Patient will be dialyzed again tomorrow. In view of ejection fraction of 40 to 45% and low blood pressure will adjust the blood pressure medication dosages and give 0.25 mg digoxin IV once. Continue to monitor renal parameters. July 24: Due for dialysis today. Labs reviewed. Low phosphorus replaced. Continue pulmonary support and ID management. Medication list reviewed. BP medication adjusted. July 23: Dialyzed yesterday. Labs reviewed. ABG noted. Patient hypoxic. Vent setting adjusted by order worker. Continue current care. Dialysis tomorrow. July 22: Patient on ventilator requiring positive end expiratory pressure. Labs reviewed. Blood sugar elevated. Levemir insulin ordered. Dialysis today. Continue per consultants. July 21: Patient now in ICU. Intubated on ventilator. Was dialyzed. Blood pressure well maintained. Has NG tube. Will start medication through NG tube and start feeding. Continue per consultants. Hemodialysis as needed. July 20: Patient seen and examined. Discussed with RN. Remains encephalopathic. Poor ABG results. Patient at high risk at this stage. We will transfer patients to ICU for possible airway support. Patient due for dialysis today. Hyperkalemia probably secondary to acidosis. Will arrange for NG tube insertion and give medication through NG tube. July 19: Mental status appears slightly improved. Was dialyzed 2 days in a row. Blood pressure medication adjusted. Next dialysis tomorrow. Continue per consultants. July 18: Patient encephalopathic, was dialyzed yesterday and had 3 L removed. Will order dialysis again today. Continue per ID. Blood pressure medication adjusted. July 17: Stat hemodialysis ordered. Kayexalate for high potassium. Pulmonary support with oxygen or BiPAP as needed Blood pressure support with proper parameters Per orders Subjective ROS Limited/Unobtainable: Yes Objective Objective Last 24 Hour Vital Signs Date Time Temp Pulse Resp B/P (MAP) Pulse Ox O2 Delivery O2 Flow Rate FiO2 08/06/20 11:44 118/46 08/06/20 11:38 98 17 70 08/06/20 08:00 122 08/06/20 07:15 102 16 70 08/06/20 07:00 99.5 112 20 125/60 (81) 100 08/06/20 06:00 108 18 92/54 (67) 99 08/06/20 05:00 100 16 73/44 (54) 99 08/06/20 04:00 97.9 106 20 140/65 (90) 99 08/06/20 04:00 70 08/06/20 04:00 108 08/06/20 04:00 Mechanical Ventilator 08/06/20 03:51 97.9 08/06/20 03:00 100.1 120 20 119/50 (73) 98 08/06/20 02:00 108 14 109/50 (69) 98 08/06/20 01:00 104 16 134/53 (80) 100 08/06/20 01:00 106 17 70 08/06/20 00:00 70 08/06/20 00:00 102 08/06/20 00:00 99.0 108 18 138/81 (100) 99 08/06/20 00:00 Mechanical Ventilator 08/05/20 23:00 96 16 128/55 (79) 100 08/05/20 22:00 108 18 143/65 (91) 100 08/05/20 21:00 111 16 142/74 (96) 100 08/05/20 20:00 98.0 115 16 94/54 (67) 99 08/05/20 20:00 70 08/05/20 20:00 123 08/05/20 20:00 Mechanical Ventilator 08/05/20 19:28 118 18 70 08/05/20 19:00 102 16 93/50 (64) 98 08/05/20 18:45 96 15 104/46 (65) 99 08/05/20 18:30 98 16 121/57 (78) 100 08/05/20 18:15 105 17 147/61 (89) 100 08/05/20 18:10 102 16 139/75 (96) 99 08/05/20 18:00 108 18 118/65 (82) 100 08/05/20 17:30 108 21 121/59 (79) 100 08/05/20 17:00 107 27 124/58 (80) 100 08/05/20 16:30 112 21 120/73 (89) 97 08/05/20 16:00 Mechanical Ventilator 08/05/20 16:00 108 08/05/20 16:00 70 08/05/20 16:00 99.2 108 17 128/58 (81) 99 08/05/20 15:55 102/57 08/05/20 15:37 92/46 08/05/20 15:30 102 20 92/46 (61) 97 08/05/20 15:00 95 14 88/47 (61) 99 08/05/20 15:00 70 08/05/20 14:30 92 14 100/58 (72) 100 08/05/20 14:00 100 16 110/58 (75) 99 08/05/20 13:00 104 15 108/62 (77) 100 08/05/20 12:55 106 20 80 08/05/20 12:30 108 15 105/54 (71) 99 Intake and Output 08/05/20 08/06/20 19:00 07:00 Intake Total 833.125 ml 457.5 ml Output Total 700 ml 2050 ml Balance 133.125 ml -1592.5 ml IV Total 133.125 ml 207.5 ml Tube Feeding 600 ml 250 ml Other 100 ml Stool Total 700 ml 50 ml Hemodialysis UF 2000 ml Laboratory Tests 08/05/20 13:39: POC Whole Blood Glucose 182H 08/05/20 17:39: POC Whole Blood Glucose 158H 08/05/20 20:33: POC Whole Blood Glucose 94 08/05/20 23:53: POC Whole Blood Glucose 107H 08/06/20 05:06: POC Whole Blood Glucose 120H 08/06/20 06:28: White Blood Count 8.9, Red Blood Count 2.44L, Hemoglobin 8.5L, Hematocrit 25.3L, Mean Corpuscular Volume 104H, Mean Corpuscular Hemoglobin 34.8H, Mean Cor puscular Hemoglobin Concent 33.6, Red Cell Distribution Width 16.6H, Platelet Count 81L, Mean Platelet Volume 9.1, Neutrophils (%) (Auto) , Lymphocytes (%) (Auto) , Monocytes (%) (Auto) , Eosinophils (%) (Auto) , Basophils (%) (Auto) , Differential Total Cells Counted 100, Neutrophils % (Manual) 90H, Lymphocytes % (Manual) 2L, Monocytes % (Manual) 1, Eosinophils % (Manual) 0, Basophils % (Manual) 0, Band Neutrophils 7, Nucleated Red Blood Cells 1, Platelet Estimate DecreasedL, Platelet Morphology Normal, Hypochromasia 1+, Anisocytosis 1+, Macrocytosis 1+, Sodium Level 140, Potassium Level 4.0, Chloride Level 98, Carbon Dioxide Level 31, Anion Gap 11, Blood Urea Nitrogen 63H, Creatinine 3.3H, Estimat Glomerular Filtration Rate 13.8, Glucose Level 115H, Uric Acid 4.5, Calcium Level 9.2, Phosphorus Level 4.6, Magnesium Level 1.8, Total Bilirubin 2.5H, Direct Bilirubin 2.0H, Aspartate Amino Transf (AST/SGOT) 70H, Alanine Aminotransferase (ALT/SGPT) 23, Alkaline Phosphatase 205H, Troponin I 0.568H, C- Reactive Protein, Quantitative [Pending], Pro-B-Type Natriuretic Peptide > 56403L, Total Protein 6.7, Albumin 2.3L, Globulin 4.4, Albumin/Globulin Ratio 0.5L 08/06/20 09:17: POC Whole Blood Glucose 135H 08/06/20 11:36: POC Whole Blood Glucose 161H Height (Feet): 5 Height (Inches): 4.00 Weight (Pounds): 180 General Appearance: no apparent distress EENT: other - Intubated on ventilator Cardiovascular: tachycardia Respiratory/Chest: decreased breath sounds Abdomen: distended Francis Falk MD Aug 06, 2020 12:18
--- NOTE | 2020-08-06 12:20 | Diagnostic Imaging Report ---
Indication: Abdominal distention Technique: Supine view of the abdomen Comparison: 07/21/2020 upper abdominal radiograph Findings: There is again demonstrated an orogastric tube, tip projected at the level gastric fundus body junction. There is a right groin central venous catheter and a Huffman catheter. Small bowel loops are diffusely gas filled, upper limits of normal in caliber. There is equivocal mucosal thickening. Impression: Nonspecific appearance of the small bowel, with gas-filled upper limits of normal caliber small bowel loops. There is equivocal mucosal thickening. This could represent ileus or enteritis. Tube and line positions as described
--- NOTE | 2020-08-06 12:30 | NUR ---
NURSE NOTES: Dr. Leonard was notified regarding downtrending Hgb from 9.1 to 8.5 and downtrending plt from 110 to 81. Stool color from rectal tube is brown and greenish. Notified KUB and abdominal ultrasound result. Dr. Leonard was notified that the primary nurse may not be able to take down the patient to CT scan since the patient is unstable. Dr. Leonard ordered to resume tube feeding. Will closely monitor the patient. Will continue plan of care.
--- NOTE | 2020-08-06 12:30 | NUR ---
NURSE NOTES: One unit platelet transfusion started per Dr. Daniels's order. No s/s of adverse reaction noted. Will closely monitor the patient. Will continue plan of care.
--- NOTE | 2020-08-06 12:30 | NUR ---
NURSE NOTES: BS 161 noted. Novolog administered per protocol. Will closely monitor the patient. Will continue plan of care.
--- NOTE | 2020-08-06 12:45 | NUR ---
NURSE NOTES: The patient is getting one unit platelet transfusion in a safe manner. The patient is tolerated well without adverse reaction. Will closely monitor the patient. Will continue plan of care.
--- NOTE | 2020-08-06 12:50 | NUR ---
RADIOLOGY DEPT., ABDOMEN X-RAY DONE.-P.DYE
--- NOTE | 2020-08-06 14:30 | NUR ---
NURSE NOTES: Completed one unit platelet transfusion in a safe manner. No s/s of adverse reaction noted. Will closely monitor the patient. Will continue plan of care.
--- NOTE | 2020-08-06 15:51 | NUR ---
Medical InternQuality Systems Engineer SI: Respiratory Failure, ETT/Vent Support, COVID PNA T 99.5, HR 122, RR 16, BP 125/60 WBC 8.9, BUN 63, Creatinine 3.3 AC 16, FiO2 70%, TV 500, PEEP 10, O2 Sat 100% IS: Norepinepherine IV Albumin IV Pipercacillin/tazobactam IV Protonix IV ICU Status
--- NOTE | 2020-08-06 16:00 | NUR ---
NURSE NOTES: Bed bath given to the patient. The patient tolerated well. Will closely monitor the patient. Will continue plan of care.
--- NOTE | 2020-08-06 16:02 | Cardiac Electrophysiology PN ---
Assessment/Plan Assessment/Plan 1. Hypotension. Off Lopressor EF 40- 45% On Levo 1 Mcg. Increase Midodrine to 15 tid 2. Atrial fib with RVR with HR up to 180s with agitation. off Lopressor for hypotension 3. ESRD, on hemodialysis. 4. Hyponatremia, sodium 129. Fluid restriction per Dr. Falk. 5. Volume overload, BNP of more than 35,000 and EF 40-45%. On HD 6. Covid PNA and resp failure on the Vent with 70% Fio2 and PEEP 10 Covid positive 07/11 and 07/17 7. Rectal bleeding. S/P PRBC . FU Gi GER RN Subjective Subjective Confused in restraints. In Covid isolation. Intubated on 70% Fio2 and PEEP 10 In atrial fib in 90s. S/P PRBC for rectal bleeding. BP dropped to 70s overnight and was started on Levo 20 mcg but now down to 1 mcg HD 2 liter out yesterday No more rectal bleeding Objective Last 24 Hour Vital Signs Date Time Temp Pulse Resp B/P (MAP) Pulse Ox O2 Delivery O2 Flow Rate FiO2 08/06/20 13:00 90 17 96/36 (56) 99 08/06/20 12:00 92 17 121/41 (67) 99 08/06/20 12:00 70 08/06/20 12:00 88 08/06/20 12:00 Mechanical Ventilator 08/06/20 11:44 118/46 08/06/20 11:38 98 17 70 08/06/20 11:00 99 16 122/52 (75) 100 08/06/20 10:00 133 20 121/55 (77) 100 08/06/20 09:00 95 16 104/44 (64) 99 08/06/20 08:00 122 08/06/20 08:00 Mechanical Ventilator 08/06/20 08:00 105 16 143/47 (79) 99 08/06/20 08:00 70 08/06/20 07:15 102 16 70 08/06/20 07:00 99.5 112 20 125/60 (81) 100 08/06/20 06:00 108 18 92/54 (67) 99 08/06/20 05:00 100 16 73/44 (54) 99 08/06/20 04:00 97.9 106 20 140/65 (90) 99 08/06/20 04:00 70 08/06/20 04:00 108 08/06/20 04:00 Mechanical Ventilator 08/06/20 03:51 97.9 08/06/20 03:00 100.1 120 20 119/50 (73) 98 08/06/20 02:00 108 14 109/50 (69) 98 08/06/20 01:00 104 16 134/53 (80) 100 08/06/20 01:00 106 17 70 08/06/20 00:00 70 08/06/20 00:00 102 08/06/20 00:00 99.0 108 18 138/81 (100) 99 08/06/20 00:00 Mechanical Ventilator 08/05/20 23:00 96 16 128/55 (79) 100 08/05/20 22:00 108 18 143/65 (91) 100 08/05/20 21:00 111 16 142/74 (96) 100 08/05/20 20:00 98.0 115 16 94/54 (67) 99 08/05/20 20:00 70 08/05/20 20:00 123 08/05/20 20:00 Mechanical Ventilator 08/05/20 19:28 118 18 70 08/05/20 19:00 102 16 93/50 (64) 98 08/05/20 18:45 96 15 104/46 (65) 99 08/05/20 18:30 98 16 121/57 (78) 100 08/05/20 18:15 105 17 147/61 (89) 100 08/05/20 18:10 102 16 139/75 (96) 99 08/05/20 18:00 108 18 118/65 (82) 100 08/05/20 17:30 108 21 121/59 (79) 100 08/05/20 17:00 107 27 124/58 (80) 100 08/05/20 16:30 112 21 120/73 (89) 97 08/05/20 16:00 Mechanical Ventilator 08/05/20 16:00 108 08/05/20 16:00 70 08/05/20 16:00 99.2 108 17 128/58 (81) 99 Intake and Output 08/05/20 08/06/20 19:00 07:00 Intake Total 833.125 ml 457.5 ml Output Total 700 ml 2050 ml Balance 133.125 ml -1592.5 ml IV Total 133.125 ml 207.5 ml Tube Feeding 600 ml 250 ml Other 100 ml Stool Total 700 ml 50 ml Hemodialysis UF 2000 ml Laboratory Tests Test 08/05/20 17:39 08/05/20 20:33 08/05/20 23:53 08/06/20 05:06 POC Whole Blood Glucose 158 MG/DL (74-106) H 94 MG/DL (74-106) 107 MG/DL (74-106) H 120 MG/DL (74-106) H Test 08/06/20 06:28 08/06/20 09:17 08/06/20 11:36 White Blood Count 8.9 K/UL (4.8-10.8) Red Blood Count 2.44 M/UL (4.20-5.40) L Hemoglobin 8.5 G/DL (12.0-16.0) L Hematocrit 25.3 % (37.0-47.0) L Mean Corpuscular Volume 104 FL (80-99) H Mean Corpuscular Hemoglobin 34.8 PG (27.0-31.0) H Mean Corpuscular Hemoglobin Concent 33.6 G/DL (32.0-36.0) Red Cell Distribution Width 16.6 % (11.6-14.8) H Platelet Count 81 K/UL (150-450) L Mean Platelet Volume 9.1 FL (6.5-10.1) Neutrophils (%) (Auto) % (45.0-75.0) Lymphocytes (%) (Auto) % (20.0-45.0) Monocytes (%) (Auto) % (1.0-10.0) Eosinophils (%) (Auto) % (0.0-3.0) Basophils (%) (Auto) % (0.0-2.0) Differential Total Cells Counted 100 Neutrophils % (Manual) 90 % (45-75) H Lymphocytes % (Manual) 2 % (20-45) L Monocytes % (Manual) 1 % (1-10) Eosinophils % (Manual) 0 % (0-3) Basophils % (Manual) 0 % (0-2) Band Neutrophils 7 % (0-8) Nucleated Red Blood Cells 1 /100 WBC Platelet Estimate Decreased L Platelet Morphology Normal Hypochromasia 1+ Anisocytosis 1+ Macrocytosis 1+ Sodium Level 140 MMOL/L (136-145) Potassium Level 4.0 MMOL/L (3.5-5.1) Chloride Level 98 MMOL/L (98-107) Carbon Dioxide Level 31 MMOL/L (21-32) Anion Gap 11 mmol/L (5-15) Blood Urea Nitrogen 63 mg/dL (7-18) H Creatinine 3.3 MG/DL (0.55-1.30) H Estimat Glomerular Filtration Rate 13.8 mL/min (>60) Glucose Level 115 MG/DL (74-106) H Uric Acid 4.5 MG/DL (2.6-7.2) Calcium Level 9.2 MG/DL (8.5-10.1) Phosphorus Level 4.6 MG/DL (2.5-4.9) Magnesium Level 1.8 MG/DL (1.8-2.4) Total Bilirubin 2.5 MG/DL (0.2-1.0) H Direct Bilirubin 2.0 MG/DL (0.0-0.3) H Aspartate Amino Transf (AST/SGOT) 70 U/L (15-37) H Alanine Aminotransferase (ALT/SGPT) 23 U/L (12-78) Alkaline Phosphatase 205 U/L (46-116) H Troponin I 0.568 ng/mL (0.000-0.056) C-Reactive Protein, Quantitative Pending Pro-B-Type Natriuretic Peptide > 68368 pg/mL (0-125) H Total Protein 6.7 G/DL (6.4-8.2) Albumin 2.3 G/DL (3.4-5.0) L Globulin 4.4 g/dL Albumin/Globulin Ratio 0.5 (1.0-2.7) L POC Whole Blood Glucose 135 MG/DL (74-106) H 161 MG/DL (74-106) H Microbiology Date/Time Source Procedure Growth Status 08/03/20 18:15 Sputum Gram Stain - Final Complete 08/03/20 18:15 Sputum Culture - Final Елена Albicans Usual Respiratory Bruna Complete Objective HEAD AND NECK: Orally intubated LUNGS: Coarse rhonchi. CARDIOVASCULAR: Regular S1 and S2 with no gallop or murmur. ABDOMEN: Soft. EXTREMITIES: No pitting edema. Zev Gatica MD Aug 06, 2020 16:02
[2020-08-06] MEDS ORDERED: Digoxin 0.5mg/2ml Inj IVP SCH (16:15)
--- NOTE | 2020-08-06 16:29 | Infectious Diseases Prog Note ---
Assessment/Plan Assessment/Plan IMPRESSION: COVID-19 disease, Altered mental status and encephalopathy, End-stage renal disease on hemodialysis, COPD, Asthma, Hypertension, Pancytopenia, Diabetes mellitus with hyperglycemia, Systolic heart failure, Aortic stenosis. Hypercapnic, hypoxemic respiratory failure GI bleeding Anemia Leukocytosis resolved Hypotension Cholelithiasis Hepatocellular disease RECOMMENDATION: Finished dexamethasone course Discontinue Zosyn & Vancomycin Subjective ROS Limited/Unobtainable: Yes Constitutional: Reports: fever, other - We=435.1 Neurologic: Reports: other - on restraint Allergies: Coded Allergies: No Known Allergies (Unverified , 05/12/17) Objective Last 24 Hour Vital Signs Date Time Temp Pulse Resp B/P (MAP) Pulse Ox O2 Delivery O2 Flow Rate FiO2 08/06/20 15:51 103 18 70 08/06/20 13:00 90 17 96/36 (56) 99 08/06/20 12:00 92 17 121/41 (67) 99 08/06/20 12:00 70 08/06/20 12:00 88 08/06/20 12:00 Mechanical Ventilator 08/06/20 11:44 118/46 08/06/20 11:38 98 17 70 08/06/20 11:00 99 16 122/52 (75) 100 08/06/20 10:00 133 20 121/55 (77) 100 08/06/20 09:00 95 16 104/44 (64) 99 08/06/20 08:00 122 08/06/20 08:00 Mechanical Ventilator 08/06/20 08:00 105 16 143/47 (79) 99 08/06/20 08:00 70 08/06/20 07:15 102 16 70 08/06/20 07:00 99.5 112 20 125/60 (81) 100 08/06/20 06:00 108 18 92/54 (67) 99 08/06/20 05:00 100 16 73/44 (54) 99 08/06/20 04:00 97.9 106 20 140/65 (90) 99 08/06/20 04:00 70 08/06/20 04:00 108 08/06/20 04:00 Mechanical Ventilator 08/06/20 03:51 97.9 08/06/20 03:00 100.1 120 20 119/50 (73) 98 08/06/20 02:00 108 14 109/50 (69) 98 08/06/20 01:00 104 16 134/53 (80) 100 08/06/20 01:00 106 17 70 08/06/20 00:00 70 08/06/20 00:00 102 08/06/20 00:00 99.0 108 18 138/81 (100) 99 08/06/20 00:00 Mechanical Ventilator 08/05/20 23:00 96 16 128/55 (79) 100 08/05/20 22:00 108 18 143/65 (91) 100 08/05/20 21:00 111 16 142/74 (96) 100 08/05/20 20:00 98.0 115 16 94/54 (67) 99 08/05/20 20:00 70 08/05/20 20:00 123 08/05/20 20:00 Mechanical Ventilator 08/05/20 19:28 118 18 70 08/05/20 19:00 102 16 93/50 (64) 98 08/05/20 18:45 96 15 104/46 (65) 99 08/05/20 18:30 98 16 121/57 (78) 100 08/05/20 18:15 105 17 147/61 (89) 100 08/05/20 18:10 102 16 139/75 (96) 99 08/05/20 18:00 108 18 118/65 (82) 100 08/05/20 17:30 108 21 121/59 (79) 100 08/05/20 17:00 107 27 124/58 (80) 100 08/05/20 16:30 112 21 120/73 (89) 97 Height (Feet): 5 Height (Inches): 4.00 Weight (Pounds): 180 HEENT: other - orally intubated Respiratory/Chest: other - on ventilator Cardiovascular: normal rate Abdomen: soft, non tender, other - rectal tube Extremities: no edema Neurologic/Psychiatric: unresponsiveness Microbiology Date/Time Source Procedure Growth Status 08/03/20 18:15 Sputum Gram Stain - Final Complete 08/03/20 18:15 Sputum Culture - Final Елена Albicans Usual Respiratory Bruna Complete Laboratory Tests Test 08/05/20 17:39 08/05/20 20:33 08/05/20 23:53 08/06/20 05:06 POC Whole Blood Glucose 158 MG/DL (74-106) H 94 MG/DL (74-106) 107 MG/DL (74-106) H 120 MG/DL (74-106) H Test 08/06/20 06:28 08/06/20 09:17 08/06/20 11:36 White Blood Count 8.9 K/UL (4.8-10.8) Red Blood Count 2.44 M/UL (4.20-5.40) L Hemoglobin 8.5 G/DL (12.0-16.0) L Hematocrit 25.3 % (37.0-47.0) L Mean Corpuscular Volume 104 FL (80-99) H Mean Corpuscular Hemoglobin 34.8 PG (27.0-31.0) H Mean Corpuscular Hemoglobin Concent 33.6 G/DL (32.0-36.0) Red Cell Distribution Width 16.6 % (11.6-14.8) H Platelet Count 81 K/UL (150-450) L Mean Platelet Volume 9.1 FL (6.5-10.1) Neutrophils (%) (Auto) % (45.0-75.0) Lymphocytes (%) (Auto) % (20.0-45.0) Monocytes (%) (Auto) % (1.0-10.0) Eosinophils (%) (Auto) % (0.0-3.0) Basophils (%) (Auto) % (0.0-2.0) Differential Total Cells Counted 100 Neutrophils % (Manual) 90 % (45-75) H Lymphocytes % (Manual) 2 % (20-45) L Monocytes % (Manual) 1 % (1-10) Eosinophils % (Manual) 0 % (0-3) Basophils % (Manual) 0 % (0-2) Band Neutrophils 7 % (0-8) Nucleated Red Blood Cells 1 /100 WBC Platelet Estimate Decreased L Platelet Morphology Normal Hypochromasia 1+ Anisocytosis 1+ Macrocytosis 1+ Sodium Level 140 MMOL/L (136-145) Potassium Level 4.0 MMOL/L (3.5-5.1) Chloride Level 98 MMOL/L (98-107) Carbon Dioxide Level 31 MMOL/L (21-32) Anion Gap 11 mmol/L (5-15) Blood Urea Nitrogen 63 mg/dL (7-18) H Creatinine 3.3 MG/DL (0.55-1.30) H Estimat Glomerular Filtration Rate 13.8 mL/min (>60) Glucose Level 115 MG/DL (74-106) H Uric Acid 4.5 MG/DL (2.6-7.2) Calcium Level 9.2 MG/DL (8.5-10.1) Phosphorus Level 4.6 MG/DL (2.5-4.9) Magnesium Level 1.8 MG/DL (1.8-2.4) Total Bilirubin 2.5 MG/DL (0.2-1.0) H Direct Bilirubin 2.0 MG/DL (0.0-0.3) H Aspartate Amino Transf (AST/SGOT) 70 U/L (15-37) H Alanine Aminotransferase (ALT/SGPT) 23 U/L (12-78) Alkaline Phosphatase 205 U/L (46-116) H Troponin I 0.568 ng/mL (0.000-0.056) C-Reactive Protein, Quantitative Pending Pro-B-Type Natriuretic Peptide > 80923 pg/mL (0-125) H Total Protein 6.7 G/DL (6.4-8.2) Albumin 2.3 G/DL (3.4-5.0) L Globulin 4.4 g/dL Albumin/Globulin Ratio 0.5 (1.0-2.7) L POC Whole Blood Glucose 135 MG/DL (74-106) H 161 MG/DL (74-106) H Current Medications Medications (Trade) Dose Ordered Sig/Toya Route PRN Reason Start Time Stop Time Status Last Admin Dose Admin Acetaminophen (Tylenol) 650 mg EVERY 6 HOURS PRN NG Mild Pain (Pain Scale 1-3) 07/29/20 09:05 08/28/20 09:04 08/06/20 03:21 Acetaminophen (Tylenol) 650 mg EVERY 6 HOURS PRN NG Temp >100.5 07/29/20 09:15 08/28/20 09:14 08/02/20 08:17 Chlorhexidine Gluconate (Yessi-Hex 2%) 1 applic DAILY@1999 TOPIC 07/21/20 20:00 10/19/20 19:59 08/05/20 20:43 Clonidine HCl (Catapres Tab) 0.1 mg Q4H PRN NG bp over 165 syst 07/21/20 12:00 10/14/20 22:44 Dextrose (Dextrose 50%) 25 ml Q30M PRN IV Hypoglycemia 07/22/20 08:00 10/20/20 07:59 08/04/20 18:19 Dextrose (Dextrose 50%) 50 ml Q30M PRN IV Hypoglycemia 07/22/20 08:00 10/20/20 07:59 Digoxin (Lanoxin) 0.25 mg ONCE IVP 08/06/20 16:15 08/06/20 18:30 Epoetin Panchito (Epoetin Panchito(ESRD on dialysis)) 2,000 unit THU-THU-THU SUBQ 08/03/20 21:00 11/01/20 20:59 08/03/20 21:16 Epoetin Panchito (Epoetin Panchito(ESRD on dialysis)) 8,000 unit SUBQ 08/03/20 21:00 11/01/20 20:59 08/03/20 21:16 Haloperidol Lactate (Haldol) 5 mg Q6H PRN IM Agitation 07/17/20 17:30 08/31/20 17:29 08/01/20 12:13 Insulin Aspart (NovoLOG) Q6HR SUBQ 07/22/20 08:15 10/20/20 11:29 08/06/20 11:45 Insulin Detemir (Levemir) 12 units Q12HR SUBQ 07/24/20 09:00 10/20/20 09:59 08/06/20 09:25 Loperamide HCl (Imodium) 2 mg Q6H PRN NG Diarrhea 07/29/20 15:45 08/28/20 15:44 Midodrine (Pro-Amatine) 15 mg Q8HR NG 08/06/20 22:00 11/01/20 16:29 Norepinephrine Bitartrate 250 ml @ 7.5 mls/hr Q24H IV 08/05/20 15:45 08/08/20 15:36 08/06/20 11:44 Pantoprazole (Protonix) 40 mg EVERY 12 HOURS IVP 07/21/20 21:00 08/20/20 20:59 08/06/20 09:00 Piperacillin Sod/ Tazobactam Sod 2.25 gm/Dextrose 55 ml @ 110 mls/hr Q8HR@0200,1000,1800 IV 08/03/20 10:00 08/10/20 09:59 08/06/20 09:02 Quetiapine Fumarate (SEROqueL) 50 mg Q12HR ORAL 08/05/20 09:00 09/13/20 20:59 08/06/20 09:00 Vitamin D (Vitamin D) 5,000 unit DAILY ORAL 07/29/20 09:00 08/28/20 08:59 08/06/20 09:00 Kalin Briseno MD Aug 06, 2020 16:29
--- NOTE | 2020-08-06 17:00 | NUR ---
NURSE NOTES: Dr. Gatica ordered Digoxin IVP for Afib w/ RVR. Clarified with Dr. Gatica. Will administer as ordered. Will closely monitor the patient. Will continue plan of care.
--- NOTE | 2020-08-06 17:43 | Pulmonology Progress Note ---
Subjective ROS Limited/Unobtainable: Yes Interval Events: dialysis today Constitutional: Reports: fever, other - Ti=297.1 HEENT: Repors: no symptoms Respiratory: Reports: no symptoms Cardiovascular: Reports: no symptoms Gastrointestinal/Abdominal: Reports: other - rectal bleeding Genitourinary: Reports: no symptoms Allergies: Coded Allergies: No Known Allergies (Unverified , 05/12/17) All Systems: reviewed and negative except above Objective Last 24 Hour Vital Signs Date Time Temp Pulse Resp B/P (MAP) Pulse Ox O2 Delivery O2 Flow Rate FiO2 08/06/20 17:00 106 23 112/45 (67) 98 08/06/20 16:52 96 08/06/20 16:00 Mechanical Ventilator 08/06/20 16:00 108 08/06/20 16:00 98.6 106 21 129/47 (74) 98 08/06/20 16:00 70 08/06/20 15:51 103 18 70 08/06/20 15:00 94 17 96/38 (57) 98 08/06/20 14:00 132 22 133/57 (82) 98 08/06/20 13:00 90 17 96/36 (56) 99 08/06/20 13:00 90 17 96/36 (56) 99 08/06/20 12:00 70 08/06/20 12:00 92 17 121/41 (67) 99 08/06/20 12:00 70 08/06/20 12:00 88 08/06/20 12:00 Mechanical Ventilator 08/06/20 12:00 98.9 92 17 121/41 (67) 99 08/06/20 12:00 Mechanical Ventilator 08/06/20 11:44 118/46 08/06/20 11:38 98 17 70 08/06/20 11:00 99 16 122/52 (75) 100 08/06/20 11:00 99 16 122/52 (75) 100 08/06/20 10:00 133 20 121/55 (77) 100 08/06/20 10:00 133 20 121/55 (77) 100 08/06/20 09:00 95 16 104/44 (64) 99 08/06/20 09:00 95 16 104/44 (64) 99 08/06/20 08:00 70 08/06/20 08:00 122 08/06/20 08:00 Mechanical Ventilator 08/06/20 08:00 Mechanical Ventilator 08/06/20 08:00 105 16 143/47 (79) 99 08/06/20 08:00 98.6 105 16 143/47 (79) 99 08/06/20 08:00 70 08/06/20 07:15 102 16 70 08/06/20 07:00 99.5 112 20 125/60 (81) 100 08/06/20 06:00 108 18 92/54 (67) 99 08/06/20 05:00 100 16 73/44 (54) 99 08/06/20 04:00 97.9 106 20 140/65 (90) 99 08/06/20 04:00 70 08/06/20 04:00 108 08/06/20 04:00 Mechanical Ventilator 08/06/20 03:51 97.9 08/06/20 03:00 100.1 120 20 119/50 (73) 98 08/06/20 02:00 108 14 109/50 (69) 98 08/06/20 01:00 104 16 134/53 (80) 100 08/06/20 01:00 106 17 70 08/06/20 00:00 70 08/06/20 00:00 102 08/06/20 00:00 99.0 108 18 138/81 (100) 99 08/06/20 00:00 Mechanical Ventilator 08/05/20 23:00 96 16 128/55 (79) 100 08/05/20 22:00 108 18 143/65 (91) 100 08/05/20 21:00 111 16 142/74 (96) 100 08/05/20 20:00 98.0 115 16 94/54 (67) 99 08/05/20 20:00 70 08/05/20 20:00 123 08/05/20 20:00 Mechanical Ventilator 08/05/20 19:28 118 18 70 08/05/20 19:00 102 16 93/50 (64) 98 08/05/20 18:45 96 15 104/46 (65) 99 08/05/20 18:30 98 16 121/57 (78) 100 08/05/20 18:15 105 17 147/61 (89) 100 08/05/20 18:10 102 16 139/75 (96) 99 08/05/20 18:00 108 18 118/65 (82) 100 Intake and Output 08/05/20 08/06/20 19:00 07:00 Intake Total 833.125 ml 457.5 ml Output Total 700 ml 2050 ml Balance 133.125 ml -1592.5 ml IV Total 133.125 ml 207.5 ml Tube Feeding 600 ml 250 ml Other 100 ml Stool Total 700 ml 50 ml Hemodialysis UF 2000 ml General Appearance: WD/WN, no acute distress, other - intubation HEENT: normocephalic Respiratory: chest wall non-tender, crackles/rales Cardiovascular: normal rate, regular rhythm Microbiology Date/Time Source Procedure Growth Status 08/03/20 18:15 Sputum Gram Stain - Final Complete 08/03/20 18:15 Sputum Culture - Final Елена Albicans Usual Respiratory Bruna Complete Laboratory Tests 08/05/20 20:33: POC Whole Blood Glucose 94 08/05/20 23:53: POC Whole Blood Glucose 107H 08/06/20 05:06: POC Whole Blood Glucose 120H 08/06/20 06:28: White Blood Count 8.9, Red Blood Count 2.44L, Hemoglobin 8.5L, Hematocrit 25.3L, Mean Corpuscular Volume 104H, Mean Corpuscular Hemoglobin 34.8H, Mean Corpuscular Hemoglobin Concent 33.6, Red Cell Distribution Width 16.6H, Platelet Count 81L, Mean Platelet Volume 9.1, Neutrophils (%) (Auto) , Lymphocytes (%) (Auto) , Monocytes (%) (Auto) , Eosinophils (%) (Auto) , Basophils (%) (Auto) , Differential Total Cells Counted 100, Neutrophils % (Manual) 90H, Lymphocytes % (Manual) 2L, Monocytes % (Manual) 1, Eosinophils % (Manual) 0, Basophils % (Manual) 0, Band Neutrophils 7, Nucleated Red Blood Cells 1, Platelet Estimate DecreasedL, Platelet Morphology Normal, Hypochromasia 1+, Anisocytosis 1+, Macrocytosis 1+, Sodium Level 140, Potassium Level 4.0, Chloride Level 98, Carbon Dioxide Level 31, Anion Gap 11, Blood Urea Nitrogen 63H, Creatinine 3.3H, Estimat Glomerular Filtration Rate 13.8, Glucose Level 115H, Uric Acid 4.5, Calcium Level 9.2, Phosphorus Level 4.6, Magnesium Level 1.8, Total Bilirubin 2.5H, Direct Bilirubin 2.0H, Aspartate Amino Transf (AST/SGOT) 70H, Alanine Aminotransferase (ALT/SGPT) 23, Alkaline Phosphatase 205H, Troponin I 0.568H, C- Reactive Protein, Quantitative [Pending], Pro-B-Type Natriuretic Peptide > 59606X, Total Protein 6.7, Albumin 2.3L, Globulin 4.4, Albumin/Globulin Ratio 0 .5L 08/06/20 09:17: POC Whole Blood Glucose 135H 08/06/20 11:36: POC Whole Blood Glucose 161H 08/06/20 17:00: POC Whole Blood Glucose 216H Current Medications Medications (Trade) Dose Ordered Sig/Toya Route PRN Reason Start Time Stop Time Status Last Admin Dose Admin Acetaminophen (Tylenol) 650 mg EVERY 6 HOURS PRN NG Mild Pain (Pain Scale 1-3) 07/29/20 09:05 08/28/20 09:04 08/06/20 03:21 Acetaminophen (Tylenol) 650 mg EVERY 6 HOURS PRN NG Temp >100.5 07/29/20 09:15 08/28/20 09:14 08/02/20 08:17 Chlorhexidine Gluconate (Yessi-Hex 2%) 1 applic DAILY@1999 TOPIC 07/21/20 20:00 10/19/20 19:59 08/05/20 20:43 Clonidine HCl (Catapres Tab) 0.1 mg Q4H PRN NG bp over 165 syst 07/21/20 12:00 10/14/20 22:44 Dextrose (Dextrose 50%) 25 ml Q30M PRN IV Hypoglycemia 07/22/20 08:00 10/20/20 07:59 08/04/20 18:19 Dextrose (Dextrose 50%) 50 ml Q30M PRN IV Hypoglycemia 07/22/20 08:00 10/20/20 07:59 Digoxin (Lanoxin) 0.25 mg ONCE IVP 08/06/20 16:15 08/06/20 18:30 08/06/20 16:52 Epoetin Panchito (Epoetin Panchito(ESRD on dialysis)) 2,000 unit THU-THU-THU SUBQ 08/03/20 21:00 11/01/20 20:59 08/03/20 21:16 Epoetin Panchito (Epoetin Panchito(ESRD on dialysis)) 8,000 unit THU-THU-THU SUBQ 08/03/20 21:00 11/01/20 20:59 08/03/20 21:16 Haloperidol Lactate (Haldol) 5 mg Q6H PRN IM Agitation 07/17/20 17:30 08/31/20 17:29 08/01/20 12:13 Insulin Aspart (NovoLOG) Q6HR SUBQ 07/22/20 08:15 10/20/20 11:29 08/06/20 17:05 Insulin Detemir (Levemir) 12 units Q12HR SUBQ 07/24/20 09:00 10/20/20 09:59 08/06/20 09:25 Loperamide HCl (Imodium) 2 mg Q6H PRN NG Diarrhea 07/29/20 15:45 08/28/20 15:44 Midodrine (Pro-Amatine) 15 mg Q8HR NG 08/06/20 22:00 11/01/20 16:29 Norepinephrine Bitartrate 250 ml @ 7.5 mls/hr Q24H IV 08/05/20 15:45 08/08/20 15:36 08/06/20 11:44 Pantoprazole (Protonix) 40 mg EVERY 12 HOURS IVP 07/21/20 21:00 08/20/20 20:59 08/06/20 09:00 Quetiapine Fumarate (SEROqueL) 50 mg Q12HR ORAL 08/05/20 09:00 09/13/20 20:59 08/06/20 09:00 Vitamin D (Vitamin D) 5,000 unit DAILY ORAL 07/29/20 09:00 08/28/20 08:59 08/06/20 09:00 Assessment/Plan Assessment/Plan Assessment/Plan 1. COVID-19 pneumonia. - on Abx 2. COPD 3. Pneumonia 4. Hypertensive emergency. 5. Leukocytosis. 6. Anemia. 7. Hyponatremia. 8. Hyperkalemia. 9. Hypochloridemia. 10. Hyperglycemia. 11. ESRD, on dialysis. 12. Respiratory failure; intubated PLAN Continue O2; currently 100% Became bradycardic yesterday; FiO2 80% to 100% Vent; AC mode On PEEP now 10 Agree with HD; recommend daily HD Noted rectal bleeding -> s/p PRBC Transfusions in place CXR 08/03 improvement in mild to moderate diffuse bilateral alveolar infiltrates since the prior study Discussed with Dr Falk Will attempt wean when FiO2 and PEEP are lower Levy Law MD, MD Aug 06, 2020 17:42
--- NOTE | 2020-08-06 18:00 | NUR ---
NURSE NOTES: BS 216 noted. Novolog administered per protocol. Tolerating vent setting and tube feeding well. Levophed running @ 1mcg/min. Will closely monitor the patient. Will continue plan of care.
--- NOTE | 2020-08-06 19:30 | NUR ---
NURSE HAND-OFF REPORT: Important Events on Shift: One unit Platelet transfusion, Afib w/ RVR_ EKG and Digoxin IVP, ABD US reported to Dr. Leonard Patient Status: Stable, Full code Diet: OGT Vital AF @ 20mL/hr for now with goal of 50mL/hr Pending Orders: N Pending Results/Labs: N Pending MD notification: N Latest Vital Signs: Temperature 98.7 , Pulse 87 , B/P 89 /45 , Respiratory Rate 15 , O2 SAT 98 , Nasal Cannula, O2 Flow Rate 3.0 . Vital Sign Comment: Stable EKG Rhythm: Atrial Fibrillation Rhythm change?: N MD Notified?: Y -Dr. En CROFT Response: Latest Elizabeth Fall Score: 50 Fall Risk: High Risk Safety Measures: Call light Within Reach, Bed Alarm Zone 1, Side Rails Side Rails x3, Bed position Low and Locked. Fall Precautions: Yellow Socks Yellow Gown Door Sign Patient Fall Education Report given to SIDNEY Kemp. The patient is stable at this time. Endorsed plan of care.
--- NOTE | 2020-08-06 19:31 | NUR ---
NURSE NOTES: received pt from Gloria LITTLE., pt is awake and resting on the bed, obtunded, open eyes without tracking. pt cardiac moitor shows A.Fib at this time. vent setting now is AC 16 TV 500 Fio2 70% P10. OGT is vital A.f at 20ml/hr. left uppper arm shunt noted, bruit and thrill noted. right femoral TLC Levophed is running at 1mcg/hr. dressing site for femoral TLC intact, clean, and patent.no active bleeding noted. ABD large, soft, non-tender. call light within reach. will continue to monitor pt with plan of care. bed at the lowest position, alarmed, and locked.
--- NOTE | 2020-08-06 19:32 | Psychiatric Progress Note ---
Psychiatry Progress Note Psychiatry Progress Note Medications Current Medications Medications (Trade) Dose Ordered Sig/Toya Route PRN Reason Start Time Stop Time Status Last Admin Dose Admin Acetaminophen (Tylenol) 650 mg EVERY 6 HOURS PRN NG Mild Pain (Pain Scale 1-3) 07/29/20 09:05 08/28/20 09:04 08/06/20 03:21 Acetaminophen (Tylenol) 650 mg EVERY 6 HOURS PRN NG Temp >100.5 07/29/20 09:15 08/28/20 09:14 08/02/20 08:17 Chlorhexidine Gluconate (Yessi-Hex 2%) 1 applic DAILY@1999 TOPIC 07/21/20 20:00 10/19/20 19:59 08/05/20 20:43 Clonidine HCl (Catapres Tab) 0.1 mg Q4H PRN NG bp over 165 syst 07/21/20 12:00 10/14/20 22:44 Dextrose (Dextrose 50%) 25 ml Q30M PRN IV Hypoglycemia 07/22/20 08:00 10/20/20 07:59 08/04/20 18:19 Dextrose (Dextrose 50%) 50 ml Q30M PRN IV Hypoglycemia 07/22/20 08:00 10/20/20 07:59 Epoetin Panchito (Epoetin Panchito(ESRD on dialysis)) 2,000 unit THU-THU-THU SUBQ 08/03/20 21:00 11/01/20 20:59 08/03/20 21:16 Epoetin Panchito (Epoetin Panchito(ESRD on dialysis)) 8,000 unit THU-THU-THU SUBQ 08/03/20 21:00 11/01/20 20:59 08/03/20 21:16 Haloperidol Lactate (Haldol) 5 mg Q6H PRN IM Agitation 07/17/20 17:30 08/31/20 17:29 08/01/20 12:13 Insulin Aspart (NovoLOG) Q6HR SUBQ 07/22/20 08:15 10/20/20 11:29 08/06/20 17:05 Insulin Detemir (Levemir) 12 units Q12HR SUBQ 07/24/20 09:00 10/20/20 09:59 08/06/20 09:25 Loperamide HCl (Imodium) 2 mg Q6H PRN NG Diarrhea 07/29/20 15:45 08/28/20 15:44 Midodrine (Pro-Amatine) 15 mg Q8HR NG 08/06/20 22:00 11/01/20 16:29 Norepinephrine Bitartrate 250 ml @ 7.5 mls/hr Q24H IV 08/05/20 15:45 08/08/20 15:36 08/06/20 11:44 Pantoprazole (Protonix) 40 mg EVERY 12 HOURS IVP 07/21/20 21:00 08/20/20 20:59 08/06/20 09:00 Quetiapine Fumarate (SEROqueL) 50 mg Q12HR ORAL 08/05/20 09:00 09/13/20 20:59 08/06/20 09:00 Vitamin D (Vitamin D) 5,000 unit DAILY ORAL 07/29/20 09:00 08/28/20 08:59 08/06/20 09:00 Neurological/Psychiatric: Reports: anxiety, depressed; Denies: no symptoms, emotional problems, headache, numbness, paresthesia, pre-existing deficit, seizure, tingling, tremors, weakness, other Allergies: Coded Allergies: No Known Allergies (Unverified , 05/12/17) Objective Data Height (Feet): 5 Height (Inches): 4.00 Weight (Pounds): 180 General Appearance: no apparent distress Additional Comments: MENTAL STATUS EXAMINATION: The patient is having waxing and waning consciousness. Mood is irritable and anxious. Affect is blunted, congruent with mood. Thought process is concrete. Thought content, no suicidal or homicidal ideation. Cognition is impaired. Insight and judgment is impaired. Assessment/Plan [place] I: ASSESSMENT: [place] I Acute toxic encephalopathy. [place] II Deferred. [place] III COVID-19. [place] IV Low. [place] V 20. PLAN: 1. We will start the patient on low dose of antipsychotics. 2. restraints. 3. Discussed with the nurse. Status: progressing, deteriorating Status Narrative ASSESSMENT: [place] I Acute toxic encephalopathy. [place] II Deferred. [place] III COVID-19. [place] IV Low. [place] V 20. PLAN: 1. We will start the patient on low dose of antipsychotics. 2. restraints. 3. Discussed with the nurse. Assessment/Plan: ASSESSMENT: [place] I Acute toxic encephalopathy. [place] II Deferred. [place] III COVID-19. [place] IV Low. [place] V 20. PLAN: 1. We will start the patient on low dose of antipsychotics. 2. restraints. 3. Discussed with the nurse. Alecia Collins MD Aug 06, 2020 19:32
[2020-08-06] MEDS: Epoetin Alfa-EPBX(ESRD on dialysis)4000 units/ml vial SUBQ SCH (20:44)
[2020-08-06] MEDS: Dyna-Hex 2% Top Sol 2oz TOPIC SCH (20:44)
[2020-08-06] MEDS: Epoetin Alfa-EPBX(ESRD on dialysis)2000 units/ml vial SUBQ SCH (20:45)
--- NOTE | 2020-08-06 21:00 | NUR ---
NURSE NOTES: Increase Levophed drip at 2 mcg/min. SBP on the 80s
--- NOTE | 2020-08-06 21:12 | NUR ---
NURSE HAND-OFF REPORT: Latest Vital Signs: Temperature 98.7 , Pulse 87 , B/P 109 /27 , Respiratory Rate 15 , O2 SAT 98 , Nasal Cannula, O2 Flow Rate 3.0 . Vital Sign Comment: stable EKG Rhythm: Atrial Fibrillation Rhythm change?: N Notified?: N Response: Latest Elizabeth Fall Score: 50 Fall Risk: High Risk Safety Measures: Call light Within Reach, Bed Alarm Zone 1, Side Rails Side Rails x3, Bed position Low and Locked. Fall Precautions: Yellow Socks Yellow Gown Door Sign Patient Fall Education Report given to [Zainab Evans] Charge nurse.
--- NOTE | 2020-08-06 21:45 | General Progress Note ---
Subjective ROS Limited/Unobtainable: Yes Allergies: Coded Allergies: No Known Allergies (Unverified , 05/12/17) Objective Last 24 Hour Vital Signs Date Time Temp Pulse Resp B/P (MAP) Pulse Ox O2 Delivery O2 Flow Rate FiO2 08/06/20 21:30 89/45 08/06/20 21:00 87 15 109/27 (54) 98 08/06/20 20:00 98.7 104 23 138/53 (81) 98 08/06/20 20:00 Mechanical Ventilator 08/06/20 20:00 70 08/06/20 19:45 103 22 70 08/06/20 19:00 104 20 148/46 (80) 98 08/06/20 18:00 102 21 141/56 (84) 99 08/06/20 17:00 96 19 96/38 (57) 99 08/06/20 17:00 106 23 112/45 (67) 98 08/06/20 16:52 96 08/06/20 16:00 Mechanical Ventilator 08/06/20 16:00 108 08/06/20 16:00 98.6 106 21 129/47 (74) 98 08/06/20 16:00 70 08/06/20 15:51 103 18 70 08/06/20 15:00 94 17 96/38 (57) 98 08/06/20 14:00 132 22 133/57 (82) 98 08/06/20 13:00 90 17 96/36 (56) 99 08/06/20 13:00 90 17 96/36 (56) 99 08/06/20 12:00 70 08/06/20 12:00 92 17 121/41 (67) 99 08/06/20 12:00 70 08/06/20 12:00 88 08/06/20 12:00 Mechanical Ventilator 08/06/20 12:00 98.9 92 17 121/41 (67) 99 08/06/20 12:00 Mechanical Ventilator 08/06/20 11:44 118/46 08/06/20 11:38 98 17 70 08/06/20 11:00 99 16 122/52 (75) 100 08/06/20 11:00 99 16 122/52 (75) 100 08/06/20 10:00 133 20 121/55 (77) 100 08/06/20 10:00 133 20 121/55 (77) 100 08/06/20 09:00 95 16 104/44 (64) 99 08/06/20 09:00 95 16 104/44 (64) 99 08/06/20 08:00 70 08/06/20 08:00 122 08/06/20 08:00 Mechanical Ventilator 08/06/20 08:00 Mechanical Ventilator 08/06/20 08:00 105 16 143/47 (79) 99 08/06/20 08:00 98.6 105 16 143/47 (79) 99 08/06/20 08:00 70 08/06/20 07:15 102 16 70 08/06/20 07:00 99.5 112 20 125/60 (81) 100 08/06/20 06:00 108 18 92/54 (67) 99 08/06/20 05:00 100 16 73/44 (54) 99 08/06/20 04:00 97.9 106 20 140/65 (90) 99 08/06/20 04:00 70 08/06/20 04:00 108 08/06/20 04:00 Mechanical Ventilator 08/06/20 03:51 97.9 08/06/20 03:00 100.1 120 20 119/50 (73) 98 08/06/20 02:00 108 14 109/50 (69) 98 08/06/20 01:00 104 16 134/53 (80) 100 08/06/20 01:00 106 17 70 08/06/20 00:00 70 08/06/20 00:00 102 08/06/20 00:00 99.0 108 18 138/81 (100) 99 08/06/20 00:00 Mechanical Ventilator 08/05/20 23:00 96 16 128/55 (79) 100 08/05/20 22:00 108 18 143/65 (91) 100 Intake and Output 08/05/20 08/06/20 19:00 07:00 Intake Total 833.125 ml 472.5 ml Output Total 700 ml 2050 ml Balance 133.125 ml -1577.5 ml IV Total 133.125 ml 222.5 ml Tube Feeding 600 ml 250 ml Other 100 ml Stool Total 700 ml 50 ml Hemodialysis UF 2000 ml Laboratory Tests 08/05/20 23:53: POC Whole Blood Glucose 107H 08/06/20 05:06: POC Whole Blood Glucose 120H 08/06/20 06:28: White Blood Count 8.9, Red Blood Count 2.44L, Hemoglobin 8.5L, Hematocrit 25.3L, Mean Corpuscular Volume 104H, Mean Corpuscular Hemoglobin 34.8H, Mean Corpuscular Hemoglobin Concent 33.6, Red Cell Distribution Width 16.6H, Platelet Count 81L, Mean Platelet Volume 9.1, Neutrophils (%) (Auto) , Lymphocytes (%) (Auto) , Monocytes (%) (Auto) , Eosinophils (%) (Auto) , Basophils (%) (Auto) , Differential Total Cells Counted 100, Neutrophils % (Manual) 90H, Lymphocytes % (Manual) 2L, Monocytes % (Manual) 1, Eosinophils % (Manual) 0, Basophils % (Manual) 0, Band Neutrophils 7, Nucleated Red Blood Cells 1, Platelet Estimate DecreasedL, Platelet Morphology Normal, Hypochromasia 1+, Anisocytosis 1+, Macrocytosis 1+, Sodium Level 140, Potassium Level 4.0, Chloride Level 98, Carbon Dioxide Level 31, Anion Gap 11, Blood Urea Nitrogen 63H, Creatinine 3.3H, Estimat Glomerular Filtration Rate 13.8, Glucose Level 115H, Uric Acid 4.5, Calcium Level 9.2, Phosphorus Level 4.6, Magnesium Level 1.8, Total Bilirubin 2.5H, Direct Bilirubin 2.0H, Aspartate Amino Transf (AST/SGOT) 70H, Alanine Aminotransferase (ALT/SGPT) 23, Alkaline Phosphatase 205H, Troponin I 0.568H, C- Reactive Protein, Quantitative [Pending], Pro-B-Type Natriuretic Peptide > 61537A, Total Protein 6.7, Albumin 2.3L, Globulin 4.4, Albumin/Globulin Ratio 0.5L 08/06/20 09:17: POC Whole Blood Glucose 135H 08/06/20 11:36: POC Whole Blood Glucose 161H 08/06/20 17:00: POC Whole Blood Glucose 216H Height (Feet): 5 Height (Inches): 4.00 Weight (Pounds): 180 Assessment/Plan Problem List: (1) Pneumonia ICD Codes: J18.9 - Pneumonia, unspecified organism SNOMED: 546655014 (2) Hypertension ICD Codes: I10 - Essential (primary) hypertension SNOMED: 83683954 (3) Renal failure ICD Codes: N19 - Unspecified kidney failure SNOMED: 98174057 (4) Anemia in chronic kidney disease (CKD) ICD Codes: N18.9 - Chronic kidney disease, unspecified; D63.1 - Anemia in chronic kidney disease SNOMED: 361462522 (5) weakness (6) ESRD (end stage renal disease) ICD Codes: N18.6 - End stage renal disease SNOMED: 07485219 (7) Diabetic nephropathy with proteinuria ICD Codes: E11.21 - Type 2 diabetes mellitus with diabetic nephropathy SNOMED: 88751941, 068087266 Status: progressing, deteriorating Assessment/Plan: lethargic dpoa knows about the poor prognosis not improving copd niddm esrd on hd resp failure niddm covid positive pna intubated covid + niddm copd lethrgic poor prognosis Makenna Daniel MD Aug 06, 2020 21:45
--- NOTE | 2020-08-06 23:58 | General Progress Note ---
Subjective Allergies: Coded Allergies: No Known Allergies (Unverified , 05/12/17) Subjective above noted no new events WBC now normal d/w RN still not stable for CT scan US done instead: Impression: Limited exam, as described Coarsened hepatic echogenicity, likely hepatocellular disease Trace ascites, not evident on most recent previous exam but seen on even earlier studies Right pleural effusion again demonstrated Cholelithiasis as well as gallbladder sludge. Gallbladder wall thickening is probably related to whatever process is causing ascites and pleural fluid, but the possibility of acute cholecystitis should also be considered. Consider hepatobiliary nuclear scan if there is high clinical suspicion Echogenic small right kidney, consistent with medical renal disease, also reported Objective Last 24 Hour Vital Signs Date Time Temp Pulse Resp B/P (MAP) Pulse Ox O2 Delivery O2 Flow Rate FiO2 08/06/20 22:54 88 19 70 08/06/20 21:30 89/45 08/06/20 21:00 87 15 109/27 (54) 98 08/06/20 20:00 98.7 104 23 138/53 (81) 98 08/06/20 20:00 Mechanical Ventilator 08/06/20 20:00 70 08/06/20 19:45 103 22 70 08/06/20 19:00 104 20 148/46 (80) 98 08/06/20 18:00 102 21 141/56 (84) 99 08/06/20 17:00 96 19 96/38 (57) 99 08/06/20 17:00 106 23 112/45 (67) 98 08/06/20 16:52 96 08/06/20 16:00 Mechanical Ventilator 08/06/20 16:00 108 08/06/20 16:00 98.6 106 21 129/47 (74) 98 08/06/20 16:00 70 08/06/20 15:51 103 18 70 08/06/20 15:00 94 17 96/38 (57) 98 08/06/20 14:00 132 22 133/57 (82) 98 08/06/20 13:00 90 17 96/36 (56) 99 08/06/20 13:00 90 17 96/36 (56) 99 08/06/20 12:00 70 08/06/20 12:00 92 17 121/41 (67) 99 08/06/20 12:00 70 08/06/20 12:00 88 08/06/20 12:00 Mechanical Ventilator 08/06/20 12:00 98.9 92 17 121/41 (67) 99 08/06/20 12:00 Mechanical Ventilator 08/06/20 11:44 118/46 08/06/20 11:38 98 17 70 08/06/20 11:00 99 16 122/52 (75) 100 08/06/20 11:00 99 16 122/52 (75) 100 08/06/20 10:00 133 20 121/55 (77) 100 08/06/20 10:00 133 20 121/55 (77) 100 08/06/20 09:00 95 16 104/44 (64) 99 08/06/20 09:00 95 16 104/44 (64) 99 08/06/20 08:00 70 08/06/20 08:00 122 08/06/20 08:00 Mechanical Ventilator 08/06/20 08:00 Mechanical Ventilator 08/06/20 08:00 105 16 143/47 (79) 99 08/06/20 08:00 98.6 105 16 143/47 (79) 99 08/06/20 08:00 70 08/06/20 07:15 102 16 70 08/06/20 07:00 99.5 112 20 125/60 (81) 100 08/06/20 06:00 108 18 92/54 (67) 99 08/06/20 05:00 100 16 73/44 (54) 99 08/06/20 04:00 97.9 106 20 140/65 (90) 99 08/06/20 04:00 70 08/06/20 04:00 108 08/06/20 04:00 Mechanical Ventilator 08/06/20 03:51 97.9 08/06/20 03:00 100.1 120 20 119/50 (73) 98 08/06/20 02:00 108 14 109/50 (69) 98 08/06/20 01:00 104 16 134/53 (80) 100 08/06/20 01:00 106 17 70 08/06/20 00:00 70 08/06/20 00:00 102 08/06/20 00:00 99.0 108 18 138/81 (100) 99 08/06/20 00:00 Mechanical Ventilator Intake and Output 08/05/20 08/06/20 19:00 07:00 Intake Total 833.125 ml 472.5 ml Output Total 700 ml 2050 ml Balance 133.125 ml -1577.5 ml IV Total 133.125 ml 222.5 ml Tube Feeding 600 ml 250 ml Other 100 ml Stool Total 700 ml 50 ml Hemodialysis UF 2000 ml Laboratory Tests 08/06/20 05:06: POC Whole Blood Glucose 120H 08/06/20 06:28: White Blood Count 8.9, Red Blood Count 2.44L, Hemoglobin 8.5L, Hematocrit 25.3L, Mean Corpuscular Volume 104H, Mean Corpuscular Hemoglobin 34.8H, Mean Corpuscular Hemoglobin Concent 33.6, Red Cell Distribution Width 16.6H, Platelet Count 81L, Mean Platelet Volume 9.1, Neutrophils (%) (Auto) , Lymphocytes (%) (Auto) , Monocytes (%) (Auto) , Eosinophils (%) (Auto) , Basophils (%) (Auto) , Differential Total Cells Counted 100, Neutrophils % (Manual) 90H, Lymphocytes % (Manual) 2L, Monocytes % (Manual) 1, Eosinophils % (Manual) 0, Basophils % (Manual) 0, Band Neutrophils 7, Nucleated Red Blood Cells 1, Platelet Estimate DecreasedL, Platelet Morphology Normal, Hypochromasia 1+, Anisocytosis 1+, Macrocytosis 1+, Sodium Level 140, Potassium Level 4.0, Chloride Level 98, Carbon Dioxide Level 31, Anion Gap 11, Blood Urea Nitrogen 63H, Creatinine 3.3H, Estimat Glomerular Filtration Rate 13.8, Glucose Level 115H, Uric Acid 4.5, Calcium Level 9.2, Phosphorus Level 4.6, Magnesium Level 1.8, Total Bilirubin 2.5H, Direct Bilirubin 2.0H, Aspartate Amino Transf (AST/SGOT) 70H, Alanine Aminotransferase (ALT/SGPT) 23, Alkaline Phosphatase 205H, Troponin I 0.568H, C- Reactive Protein, Quantitative [Pending], Pro-B-Type Natriuretic Peptide > 10475H, Total Protein 6.7, Albumin 2.3L, Globulin 4.4, Albumin/Globulin Ratio 0.5L 08/06/20 09:17: POC Whole Blood Glucose 135H 08/06/20 11:36: POC Whole Blood Glucose 161H 08/06/20 17:00: POC Whole Blood Glucose 216H Height (Feet): 5 Height (Inches): 4.00 Weight (Pounds): 180 Objective Elderly woman seen in ICU on vent resting comfortably exam limited due to COVID isolation Assessment/Plan Status: progressing, deteriorating Assessment/Plan: Assessment - Recurrent GI bleed - diarrhea - improved - leukocytosis / shock / sepsis - improved - anemia - s/p multiple endoscopies and colonoscopies this year - resp failure - COPD - COVID PNA - abnormal LFT - presumed COVID related - DM - Cholelithiasis - Poor Px Recommendations - PPI BID - Tube feeds --> VItal AF - follow labs - HD - PRN transfusion - No plans for endoscopy per discussion with family - Can consider HIDA, but WBC now normal - will follow Ramakrishna Leonard MD Aug 06, 2020 23:58
[2020-08-07] VITALS (43 sets, daily range): BP systolic 81–149; BP diastolic 31–96
--- NOTE | 2020-08-07 | NUR ---
NURSE NOTES: Temp 100.4 , cooling measures on progress.
[2020-08-07] MEDS: NovoLOG Insulin Flexpen SUBQ SCH ×4 (00:25→17:07)
--- NOTE | 2020-08-07 04:00 | NUR ---
NURSE NOTES: Complete bed bath with bed changed was done.
[2020-08-07 06:26] LABS: HEMATOCRIT 24.5 % (37.0-47.0); HEMOGLOBIN 8.5 G/DL (12.0-16.0); MEAN CORPUSCULAR VOLUME 100 FL (80-99); PLATELET COUNT 92 K/UL (150-450); RED BLOOD COUNT 2.44 M/UL (4.20-5.40); RED CELL DISTRIBUTION WIDTH 16.9 % (11.6-14.8); WHITE BLOOD COUNT 7.8 K/UL (4.8-10.8)
--- NOTE | 2020-08-07 07:00 | Hematology/Onc Progress Note ---
Assessment/Plan Assessment/Plan Assessment/Plan 1. Pancytopenia with hx anemia due to underlying chronic disease. Have reviewed prior workup, ferritin is >1000, covid19++++ --> Continue to closely monitor. --> Transfuse if hgb <7 --> ferritin is >1000 --> give epogen, has been started 3x a week --> as per renal --> monitor for gi bleed, gi consulted --> hgb trend 7.8-->9.3->8.9->>11-->9.5->8.9->8->8.2-->7.6-->6.8->10->8-->8.5 --> plt 42-->50-->65-->104-->109-->176-->81->92 --> ABX zosyn --> smear has been reviewed --> hep and hiv neg -> prbc 08/02 2. LEUKOCYTOSIS now, prior was Leukopenia likely reactive process v infection covid19++++ --> hepatitis and hiv prior negative --> neutropenic precautions if ANC <1500 --> trending stable --> imaging reviewed and no hsm / cirrhosis noted --> wbc 2.7-->3.6->>>2->5-->8-->17->12-->11-->24 --> increase in wbc due to steriods --> ANC goal >1500 3. End-stage renal disease, on hemodialysis three times a week. --> renal consulted --> continue hd 4. History of coronary artery disease. --> cards reviewed --> diuresis prn 5. History of anemia due to low B12, low iron --> b12 is currently within normal limits --> reobtain q6mo 6. Dizziness and unsteady gait 7. Covid 19 --> rx per id 8. DVt ppsx with SCDs Greatly appreciate consultation and Inocencio RN Subjective Allergies: Coded Allergies: No Known Allergies (Unverified , 05/12/17) All Systems: reviewed and negative except above Subjective 07/19 meds noted, s/p hd, bp has improved, no bleeding, labs reviewed 07/20 labs are noted, no bleeding, meds reviewed, no major changes, hgb 9.5 07/22 remains in the icu, no bleeding, meds reviewed, on nc 07/23 labs noted, no bleeding, in icu, hgb 8.7, plt 90 07/24 is intubated, hgb 11, no bleeding, plt are better, meds reviewed 07/25 remains on zosyn, labs are noted, no bleeding, icu, meds ntoed, s/p hd yesterday with renal 07/26 seen at bedside with Justo Toro, doing HD today, is in the icu, have ordered epo 07/27 black tarry stools overnight, no bleeding, labs reviewed, plt better 07/29 restraints, is agitated, no bleeding, hgb 8.2, improved s/p transfusion 07/30 restraints, is for rectal tube insertion today for diarrhea 07/31 hd was done yesterday, labs reviewed, meds noted, for duplex today then scds 08/01 hd as needed, did have fever overnight is on zosyn 08/02 labs noted, pending cbc for the am, 1 unit prbc is ordered, inocencio Cazares, levo lower 08/03 remains in icu, restraints, abx, wbc 24, hgb 10 12: lethargic not following commands, no distress 08/05: labs reviewed hgb 9.1 remains lethargic. 08/06 on levo, epio, zosyn, in icu, holding off ct, remains lethargic, inocencio Kemp 08/07 on vent, pressors, meds reviewed, lethargic, icu, epo Objective Objective Current Medications Medications (Trade) Dose Ordered Sig/Toya Route PRN Reason Start Time Stop Time Status Last Admin Dose Admin Acetaminophen (Tylenol) 650 mg EVERY 6 HOURS PRN NG Mild Pain (Pain Scale 1-3) 07/29/20 09:05 08/28/20 09:04 08/06/20 03:21 Acetaminophen (Tylenol) 650 mg EVERY 6 HOURS PRN NG Temp >100.5 07/29/20 09:15 08/28/20 09:14 08/02/20 08:17 Chlorhexidine Gluconate (Yessi-Hex 2%) 1 applic DAILY@1999 TOPIC 07/21/20 20:00 10/19/20 19:59 08/06/20 20:44 Clonidine HCl (Catapres Tab) 0.1 mg Q4H PRN NG bp over 165 syst 07/21/20 12:00 10/14/20 22:44 Dextrose (Dextrose 50%) 25 ml Q30M PRN IV Hypoglycemia 07/22/20 08:00 10/20/20 07:59 08/04/20 18:19 Dextrose (Dextrose 50%) 50 ml Q30M PRN IV Hypoglycemia 07/22/20 08:00 10/20/20 07:59 Epoetin Panchito (Epoetin Panchito(ESRD on dialysis)) 2,000 unit SUBQ 08/03/20 21:00 11/01/20 20:59 08/06/20 20:45 Epoetin Panchito (Epoetin Panchito(ESRD on dialysis)) 8,000 unit SUBQ 08/03/20 21:00 11/01/20 20:59 08/06/20 20:44 Haloperidol Lactate (Haldol) 5 mg Q6H PRN IM Agitation 07/17/20 17:30 08/31/20 17:29 08/01/20 12:13 Insulin Aspart (NovoLOG) Q6HR SUBQ 07/22/20 08:15 10/20/20 11:29 08/07/20 00:25 Insulin Detemir (Levemir) 12 units Q12HR SUBQ 07/24/20 09:00 10/20/20 09:59 08/06/20 21:19 Loperamide HCl (Imodium) 2 mg Q6H PRN NG Diarrhea 07/29/20 15:45 08/28/20 15:44 Midodrine (Pro-Amatine) 15 mg Q8HR NG 08/06/20 22:00 11/01/20 16:29 08/07/20 06:14 Norepinephrine Bitartrate 250 ml @ 7.5 mls/hr Q24H IV 08/05/20 15:45 08/08/20 15:36 08/06/20 21:30 Pantoprazole (Protonix) 40 mg EVERY 12 HOURS IVP 07/21/20 21:00 08/20/20 20:59 08/06/20 20:44 Quetiapine Fumarate (SEROqueL) 50 mg Q12HR ORAL 08/05/20 09:00 09/13/20 20:59 08/06/20 20:44 Vitamin D (Vitamin D) 5,000 unit DAILY ORAL 07/29/20 09:00 08/28/20 08:59 08/06/20 09:00 Last 24 Hour Vital Signs Date Time Temp Pulse Resp B/P (MAP) Pulse Ox O2 Delivery O2 Flow Rate FiO2 08/07/20 04:00 70 08/07/20 04:00 Mechanical Ventilator 08/07/20 04:00 118 08/07/20 02:51 92 20 70 08/07/20 00:00 88 08/07/20 00:00 Mechanical Ventilator 08/06/20 22:54 88 19 70 08/06/20 21:30 89/45 08/06/20 21:00 87 15 109/27 (54) 98 08/06/20 20:00 98.7 104 23 138/53 (81) 98 08/06/20 20:00 Mechanical Ventilator 08/06/20 20:00 70 08/06/20 19:45 103 22 70 08/06/20 19:45 110 08/06/20 19:00 104 20 148/46 (80) 98 08/06/20 18:00 102 21 141/56 (84) 99 08/06/20 17:00 96 19 96/38 (57) 99 08/06/20 17:00 106 23 112/45 (67) 98 08/06/20 16:52 96 08/06/20 16:00 Mechanical Ventilator 08/06/20 16:00 108 08/06/20 16:00 98.6 106 21 129/47 (74) 98 08/06/20 16:00 70 08/06/20 15:51 103 18 70 08/06/20 15:00 94 17 96/38 (57) 98 08/06/20 14:00 132 22 133/57 (82) 98 08/06/20 13:00 90 17 96/36 (56) 99 08/06/20 13:00 90 17 96/36 (56) 99 08/06/20 12:00 70 08/06/20 12:00 92 17 121/41 (67) 99 08/06/20 12:00 70 08/06/20 12:00 88 08/06/20 12:00 Mechanical Ventilator 08/06/20 12:00 98.9 92 17 121/41 (67) 99 08/06/20 12:00 Mechanical Ventilator 08/06/20 11:44 118/46 08/06/20 11:38 98 17 70 08/06/20 11:00 99 16 122/52 (75) 100 08/06/20 11:00 99 16 122/52 (75) 100 08/06/20 10:00 133 20 121/55 (77) 100 08/06/20 10:00 133 20 121/55 (77) 100 08/06/20 09:00 95 16 104/44 (64) 99 08/06/20 09:00 95 16 104/44 (64) 99 08/06/20 08:00 70 08/06/20 08:00 122 08/06/20 08:00 Mechanical Ventilator 08/06/20 08:00 Mechanical Ventilator 08/06/20 08:00 105 16 143/47 (79) 99 08/06/20 08:00 98.6 105 16 143/47 (79) 99 08/06/20 08:00 70 08/06/20 07:15 102 16 70 08/06/20 07:00 99.5 112 20 125/60 (81) 100 08/06/20 06:00 108 18 92/54 (67) 99 08/06/20 05:00 100 16 73/44 (54) 99 08/06/20 04:00 97.9 106 20 140/65 (90) 99 08/06/20 04:00 70 08/06/20 04:00 108 08/06/20 04:00 Mechanical Ventilator 08/06/20 03:51 97.9 08/06/20 03:00 100.1 120 20 119/50 (73) 98 08/06/20 02:00 108 14 109/50 (69) 98 08/06/20 01:00 104 16 134/53 (80) 100 08/06/20 01:00 106 17 70 08/06/20 00:00 70 08/06/20 00:00 102 08/06/20 00:00 99.0 108 18 138/81 (100) 99 08/06/20 00:00 Mechanical Ventilator 08/05/20 23:00 96 16 128/55 (79) 100 08/05/20 22:00 108 18 143/65 (91) 100 08/05/20 21:00 111 16 142/74 (96) 100 08/05/20 20:00 98.0 115 16 94/54 (67) 99 08/05/20 20:00 70 08/05/20 20:00 123 08/05/20 20:00 Mechanical Ventilator 08/05/20 19:28 118 18 70 08/05/20 19:00 102 16 93/50 (64) 98 08/05/20 18:45 96 15 104/46 (65) 99 08/05/20 18:30 98 16 121/57 (78) 100 08/05/20 18:15 105 17 147/61 (89) 100 08/05/20 18:10 102 16 139/75 (96) 99 08/05/20 18:00 108 18 118/65 (82) 100 08/05/20 17:30 108 21 121/59 (79) 100 08/05/20 17:00 107 27 124/58 (80) 100 08/05/20 16:30 112 21 120/73 (89) 97 08/05/20 16:00 Mechanical Ventilator 08/05/20 16:00 108 08/05/20 16:00 70 08/05/20 16:00 99.2 108 17 128/58 (81) 99 08/05/20 15:55 102/57 08/05/20 15:37 92/46 08/05/20 15:30 102 20 92/46 (61) 97 08/05/20 15:00 95 14 88/47 (61) 99 08/05/20 15:00 70 08/05/20 14:30 92 14 100/58 (72) 100 08/05/20 14:00 100 16 110/58 (75) 99 08/05/20 13:00 104 15 108/62 (77) 100 08/05/20 12:55 106 20 80 08/05/20 12:30 108 15 105/54 (71) 99 08/05/20 12:15 98.4 114 16 107/54 (71) 99 08/05/20 12:00 105 08/05/20 12:00 Mechanical Ventilator 08/05/20 12:00 113 15 104/52 (69) 99 08/05/20 11:30 121 22 107/54 (71) 99 08/05/20 11:00 80 1/3/21 11:00 126 22 118/58 (78) 98 08/05/20 10:30 117 23 91/52 (65) 98 08/05/20 10:00 113 23 105/50 (68) 98 08/05/20 09:51 95/51 08/05/20 09:30 110 20 95/51 (66) 97 08/05/20 09:00 90 08/05/20 09:00 110 21 97/51 (66) 96 08/05/20 09:00 80 08/05/20 08:30 108 20 103/53 (70) 97 08/05/20 08:00 103 16 107/52 (70) 98 08/05/20 08:00 108 08/05/20 08:00 Mechanical Ventilator 08/05/20 07:30 100 14 114/55 (74) 98 08/05/20 07:10 106 20 90 08/05/20 07:00 101 15 105/57 (73) 98 Intake and Output 08/06/20 08/07/20 19:00 07:00 Intake Total 345.00 ml 107.50 ml Output Total 150 ml Balance 195.00 ml 107.50 ml Free Water 50 ml 30 ml IV Total 135.00 ml 7.50 ml Tube Feeding 160 ml 70 ml Stool Total 150 ml Labs Test 08/04/20 09:25 08/04/20 12:43 08/04/20 18:09 08/04/20 18:10 POC Whole Blood Glucose 63 MG/DL (74-106) Test 08/04/20 18:48 08/04/20 21:09 08/05/20 00:09 08/05/20 05:00 POC Whole Blood Glucose 117 MG/DL (74-106) 117 MG/DL (74-106) White Blood Count 13.7 K/UL (4.8-10.8) Red Blood Count 2.52 M/UL (4.20-5.40) Hemoglobin 9.1 G/DL (12.0-16.0) Hematocrit 25.2 % (37.0-47.0) Mean Corpuscular Volume 100 FL (80-99) Mean Corpuscular Hemoglobin 36.2 PG (27.0-31.0) Mean Corpuscular Hemoglobin Concent 36.2 G/DL (32.0-36.0) Red Cell Distribution Width 17.0 % (11.6-14.8) Platelet Count 110 K/UL (150-450) Mean Platelet Volume 8.3 FL (6.5-10.1) Neutrophils (%) (Auto) % (45.0-75.0) Lymphocytes (%) (Auto) % (20.0-45.0) Monocytes (%) (Auto) % (1.0-10.0) Eosinophils (%) (Auto) % (0.0-3.0) Basophils (%) (Auto) % (0.0-2.0) Differential Total Cells Counted 100 Neutrophils % (Manual) 78 % (45-75) Lymphocytes % (Manual) 2 % (20-45) Monocytes % (Manual) 6 % (1-10) Eosinophils % (Manual) 1 % (0-3) Basophils % (Manual) 0 % (0-2) Band Neutrophils 13 % (0-8) Platelet Estimate Decreased Platelet Morphology Normal Hypochromasia Anisocytosis 1+ Macrocytosis 1+ Sodium Level 137 MMOL/L (136-145) Potassium Level 4.1 MMOL/L (3.5-5.1) Chloride Level 97 MMOL/L (98-107) Carbon Dioxide Level 25 MMOL/L (21-32) Anion Gap 15 mmol/L (5-15) Blood Urea Nitrogen 115 mg/dL (7-18) Creatinine 5.5 MG/DL (0.55-1.30) Estimat Glomerular Filtration Rate 7.6 mL/min (>60) Glucose Level 152 MG/DL (74-106) Calcium Level 8.9 MG/DL (8.5-10.1) Phosphorus Level 6.0 MG/DL (2.5-4.9) Magnesium Level 1.9 MG/DL (1.8-2.4) Total Bilirubin 1.8 MG/DL (0.2-1.0) Direct Bilirubin 1.4 MG/DL (0.0-0.3) Aspartate Amino Transf (AST/SGOT) 46 U/L (15-37) Alanine Aminotransferase (ALT/SGPT) 18 U/L (12-78) Alkaline Phosphatase 347 U/L (46-116) C-Reactive Protein, Quantitative 49.3 mg/dL (0.00-0.90) Total Protein 6.5 G/DL (6.4-8.2) Albumin 1.9 G/DL (3.4-5.0) Globulin 4.6 g/dL Albumin/Globulin Ratio 0.4 (1.0-2.7) Test 08/05/20 05:26 08/05/20 11:20 08/05/20 13:39 08/05/20 17:39 POC Whole Blood Glucose 157 MG/DL (74-106) 152 MG/DL (74-106) 182 MG/DL (74-106) 158 MG/DL (74-106) Test 08/05/20 20:33 08/05/20 23:53 08/06/20 05:06 08/06/20 06:28 POC Whole Blood Glucose 94 MG/DL (74-106) 107 MG/DL (74-106) 120 MG/DL (74-106) White Blood Count 8.9 K/UL (4.8-10.8) Red Blood Count 2.44 M/UL (4.20-5.40) Hemoglobin 8.5 G/DL (12.0-16.0) Hematocrit 25.3 % (37.0-47.0) Mean Corpuscular Volume 104 FL (80-99) Mean Corpuscular Hemoglobin 34.8 PG (27.0-31.0) Mean Corpuscular Hemoglobin Concent 33.6 G/DL (32.0-36.0) Red Cell Distribution Width 16.6 % (11.6-14.8) Platelet Count 81 K/UL (150-450) Mean Platelet Volume 9.1 FL (6.5-10.1) Neutrophils (%) (Auto) % (45.0-75.0) Lymphocytes (%) (Auto) % (20.0-45.0) Monocytes (%) (Auto) % (1.0-10.0) Eosinophils (%) (Auto) % (0.0-3.0) Basophils (%) (Auto) % (0.0-2.0) Differential Total Cells Counted 100 Neutrophils % (Manual) 90 % (45-75) Lymphocytes % (Manual) 2 % (20-45) Monocytes % (Manual) 1 % (1-10) Eosinophils % (Manual) 0 % (0-3) Basophils % (Manual) 0 % (0-2) Band Neutrophils 7 % (0-8) Nucleated Red Blood Cells 1 /100 WBC Platelet Estimate Decreased Platelet Morphology Normal Hypochromasia 1+ Anisocytosis 1+ Macrocytosis 1+ Sodium Level 140 MMOL/L (136-145) Potassium Level 4.0 MMOL/L (3.5-5.1) Chloride Level 98 MMOL/L (98-107) Carbon Dioxide Level 31 MMOL/L (21-32) Anion Gap 11 mmol/L (5-15) Blood Urea Nitrogen 63 mg/dL (7-18) Creatinine 3.3 MG/DL (0.55-1.30) Estimat Glomerular Filtration Rate 13.8 mL/min (>60) Glucose Level 115 MG/DL (74-106) Uric Acid 4.5 MG/DL (2.6-7.2) Calcium Level 9.2 MG/DL (8.5-10.1) Phosphorus Level 4.6 MG/DL (2.5-4.9) Magnesium Level 1.8 MG/DL (1.8-2.4) Total Bilirubin 2.5 MG/DL (0.2-1.0) Direct Bilirubin 2.0 MG/DL (0.0-0.3) Aspartate Amino Transf (AST/SGOT) 70 U/L (15-37) Alanine Aminotransferase (ALT/SGPT) 23 U/L (12-78) Alkaline Phosphatase 205 U/L (46-116) Troponin I 0.568 ng/mL (0.000-0.056) Pro-B-Type Natriuretic Peptide > 11355 pg/mL (0-125) Total Protein 6.7 G/DL (6.4-8.2) Albumin 2.3 G/DL (3.4-5.0) Globulin 4.4 g/dL Albumin/Globulin Ratio 0.5 (1.0-2.7) Test 08/06/20 09:17 08/06/20 11:36 08/06/20 17:00 08/07/20 00:21 POC Whole Blood Glucose 135 MG/DL (74-106) 161 MG/DL (74-106) 216 MG/DL (74-106) 204 MG/DL (74-106) Test 08/07/20 05:25 08/07/20 05:34 White Blood Count 7.8 K/UL (4.8-10.8) Red Blood Count 2.44 M/UL (4.20-5.40) Hemoglobin 8.5 G/DL (12.0-16.0) Hematocrit 24.5 % (37.0-47.0) Mean Corpuscular Volume 100 FL (80-99) Mean Corpuscular Hemoglobin 34.8 PG (27.0-31.0) Mean Corpuscular Hemoglobin Concent 34.8 G/DL (32.0-36.0) Red Cell Distribution Width 16.9 % (11.6-14.8) Platelet Count 92 K/UL (150-450) Mean Platelet Volume 9.3 FL (6.5-10.1) Neutrophils (%) (Auto) % (45.0-75.0) Lymphocytes (%) (Auto) % (20.0-45.0) Monocytes (%) (Auto) % (1.0-10.0) Eosinophils (%) (Auto) % (0.0-3.0) Basophils (%) (Auto) % (0.0-2.0) POC Whole Blood Glucose 129 MG/DL (74-106) Height (Feet): 5 Height (Inches): 4.00 Weight (Pounds): 180 Objective Physical Exam General Appearance: alert, obese, Chronically Ill Neck: full range of motion Respiratory: wheezing Cardiovascular: edema Gastrointestinal: normal inspection, soft 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
[2020-08-07 07:19] LABS: ALANINE AMINOTRANSFERASE 17 U/L (12-78); ALBUMIN 1.9 G/DL (3.4-5.0); ALBUMIN/GLOBULIN RATIO 0.4 (1.0-2.7); ALKALINE PHOSPHATASE 197 U/L (46-116); ASPARTATE AMINO TRANSFERASE 55 U/L (15-37); BILIRUBIN,TOTAL 2.9 MG/DL (0.2-1.0); BLOOD UREA NITROGEN 89 mg/dL (7-18); CALCIUM 9.9 MG/DL (8.5-10.1); CARBON DIOXIDE 27 MMOL/L (21-32); CHLORIDE 95 MMOL/L (98-107); PHOSPHORUS 5.4 MG/DL (2.5-4.9); POTASSIUM 4.1 MMOL/L (3.5-5.1); SODIUM 138 MMOL/L (136-145)
[2020-08-07 07:25] LABS: BILIRUBIN,DIRECT 2.4 MG/DL (0.0-0.3)
--- NOTE | 2020-08-07 07:50 | NUR ---
NURSE HAND-OFF REPORT: Latest Vital Signs: Temperature 99.0 , Pulse 106 , B/P 149 /43 , Respiratory Rate 22 , O2 SAT 95 , Nasal Cannula, O2 Flow Rate 3.0 . Vital Sign Comment: EKG Rhythm: Atrial Fibrillation Rhythm change?: N Notified?: Roxanne Gatica MD Response: Latest Elizabeth Fall Score: 50 Fall Risk: High Risk Safety Measures: Call light Within Reach, Bed Alarm Zone 1, Side Rails Side Rails x3, Bed position Low and Locked. Fall Precautions: Yellow Socks Yellow Gown Door Sign Patient Fall Education Report given to Nelly LITTLE
--- NOTE | 2020-08-07 07:51 | NUR ---
NURSE NOTES: Received report from Nini Ernandez RN. The patient is resting on the bed but has mild labored breathing at this time. The patient is AOx0-1, opening eyes with tactile stimuli but not following command. Communication made by facial expression and body movement. Afib w/ HR of 100-120s on the home health care coordinator. The patient is orally intubated on following setting and oxygen saturation is 70%: ETT 7.5 Lip line @ 24, AC mode rate of 16, TV 500 FiO2 70% PEEP 10. The patient has OGT that is intact and patent and has tube feeding order Vital AF @ 40mL/hr. The patient has rectal tube that is intact and patent and draining by gravity. The patient is anuric. The patient has SHAMEKA AV shunt that is intact. The patient has R femoral TLC that is intact and patent and running Levophed 2mcg/min due to hypotension. The patient's bed in the lowest position, call light in reach, and fall and aspiration precaution reinforced. IV site intact and patent. Will follow up the order and lab. Airborne isolation observed. Will continue plan of care.
--- NOTE | 2020-08-07 08:37 | NUR ---
NURSE NOTES: Dr. Leonard at bedside.
[2020-08-07] MEDS: Levemir Flexpen SUBQ SCH ×2 (09:14→20:43)
[2020-08-07] MEDS: Pantoprazole Inj IVP SCH ×2 (09:28→20:42)
[2020-08-07] MEDS: Vitamin D 1000 units Tab ORAL SCH (09:28)
--- NOTE | 2020-08-07 09:30 | NUR ---
NURSE NOTES: Dr. Daniel at bedside. No new order at this time.
--- NOTE | 2020-08-07 09:45 | NUR ---
NURSE NOTES: Dr. Kalin Briseno at bedside. No new order at this time.
--- NOTE | 2020-08-07 09:57 | Infectious Diseases Prog Note ---
Assessment/Plan Assessment/Plan IMPRESSION: COVID-19 disease, Altered mental status and encephalopathy, End-stage renal disease on hemodialysis, COPD, Asthma, Hypertension, Pancytopenia, Diabetes mellitus with hyperglycemia, Systolic heart failure, Aortic stenosis. Hypercapnic, hypoxemic respiratory failure GI bleeding Anemia Leukocytosis resolved Hypotension Cholelithiasis Hepatocellular disease RECOMMENDATION: Finished dexamethasone course Observe off antibiotic Subjective ROS Limited/Unobtainable: Yes Constitutional: Reports: fever, other - Uw=886.4 in am Cardiovascular: Reports: other - on low dose Levophed Allergies: Coded Allergies: No Known Allergies (Unverified , 05/12/17) Objective Last 24 Hour Vital Signs Date Time Temp Pulse Resp B/P (MAP) Pulse Ox O2 Delivery O2 Flow Rate FiO2 08/07/20 08:30 104 20 120/38 (65) 91 08/07/20 08:00 70 08/07/20 08:00 99.0 102 24 145/45 (78) 93 08/07/20 08:00 Mechanical Ventilator 08/07/20 07:49 100 08/07/20 07:30 106 22 149/43 (78) 95 08/07/20 07:00 106 23 149/50 (83) 95 08/07/20 07:00 100 22 70 08/07/20 06:30 105 26 134/43 (73) 98 08/07/20 06:00 93 22 112/45 (67) 96 08/07/20 05:30 94 23 105/42 (63) 95 08/07/20 05:00 114 25 128/40 (69) 95 08/07/20 04:30 131 27 136/68 (90) 96 08/07/20 04:00 99.0 124 34 119/44 (69) 96 08/07/20 04:00 70 08/07/20 04:00 Mechanical Ventilator 08/07/20 04:00 118 08/07/20 03:30 97 22 99/35 (56) 96 08/07/20 03:00 98 8 108/40 (62) 97 08/07/20 02:51 92 20 70 08/07/20 02:30 103 22 130/45 (73) 99 08/07/20 02:00 81 17 104/36 (58) 97 08/07/20 01:30 82 18 96/31 (52) 96 08/07/20 01:23 88 19 97/39 (58) 96 08/07/20 01:00 78 16 96/34 (54) 95 08/07/20 01:00 78 16 96/34 (54) 95 08/07/20 00:30 90 17 114/46 (68) 98 08/07/20 00:00 88 08/07/20 00:00 Mechanical Ventilator 08/07/20 00:00 100.4 100 20 124/47 (72) 98 08/06/20 23:45 98 20 131/38 (69) 98 08/06/20 23:30 95 22 109/43 (65) 97 08/06/20 23:00 88 20 110/40 (63) 95 08/06/20 22:54 88 19 70 08/06/20 22:30 121 22 108/43 (64) 95 08/06/20 22:15 139 22 118/36 (63) 96 08/06/20 22:00 137 24 113/49 (70) 96 08/06/20 21:30 89/45 08/06/20 21:30 93 20 89/37 (54) 96 08/06/20 21:00 87 15 109/27 (54) 98 08/06/20 20:00 98.7 104 23 138/53 (81) 98 08/06/20 20:00 Mechanical Ventilator 08/06/20 20:00 70 08/06/20 19:45 103 22 70 08/06/20 19:45 110 08/06/20 19:00 104 20 148/46 (80) 98 08/06/20 18:00 102 21 141/56 (84) 99 08/06/20 17:00 96 19 96/38 (57) 99 08/06/20 17:00 106 23 112/45 (67) 98 08/06/20 16:52 96 08/06/20 16:00 Mechanical Ventilator 08/06/20 16:00 108 08/06/20 16:00 98.6 106 21 129/47 (74) 98 08/06/20 16:00 70 08/06/20 15:51 103 18 70 08/06/20 15:00 94 17 96/38 (57) 98 08/06/20 14:00 132 22 133/57 (82) 98 08/06/20 13:00 90 17 96/36 (56) 99 08/06/20 13:00 90 17 96/36 (56) 99 08/06/20 12:00 70 08/06/20 12:00 92 17 121/41 (67) 99 08/06/20 12:00 70 08/06/20 12:00 88 08/06/20 12:00 Mechanical Ventilator 08/06/20 12:00 98.9 92 17 121/41 (67) 99 08/06/20 12:00 Mechanical Ventilator 08/06/20 11:44 118/46 08/06/20 11:38 98 17 70 08/06/20 11:00 99 16 122/52 (75) 100 08/06/20 11:00 99 16 122/52 (75) 100 08/06/20 10:00 133 20 121/55 (77) 100 08/06/20 10:00 133 20 121/55 (77) 100 Height (Feet): 5 Height (Inches): 4.00 Weight (Pounds): 180 HEENT: other - orally intubated Respiratory/Chest: other - on ventilator, FIO2=70% Cardiovascular: tachycardia, other - femoral line Abdomen: other - OG & rectal tubes Extremities: no edema Neurologic/Psychiatric: other - lethargic Laboratory Tests Test 08/06/20 11:36 08/06/20 17:00 08/07/20 00:21 08/07/20 05:25 POC Whole Blood Glucose 161 MG/DL (74-106) H 216 MG/DL (74-106) H 204 MG/DL (74-106) H White Blood Count 7.8 K/UL (4.8-10.8) Red Blood Count 2.44 M/UL (4.20-5.40) L Hemoglobin 8.5 G/DL (12.0-16.0) L Hematocrit 24.5 % (37.0-47.0) L Mean Corpuscular Volume 100 FL (80-99) H Mean Corpuscular Hemoglobin 34.8 PG (27.0-31.0) H Mean Corpuscular Hemoglobin Concent 34.8 G/DL (32.0-36.0) Red Cell Distribution Width 16.9 % (11.6-14.8) H Platelet Count 92 K/UL (150-450) L Mean Platelet Volume 9.3 FL (6.5-10.1) Neutrophils (%) (Auto) % (45.0-75.0) Lymphocytes (%) (Auto) % (20.0-45.0) Monocytes (%) (Auto) % (1.0-10.0) Eosinophils (%) (Auto) % (0.0-3.0) Basophils (%) (Auto) % (0.0-2.0) Neutrophils % (Manual) Pending Lymphocytes % (Manual) Pending Platelet Estimate Pending Platelet Morphology Pending Sodium Level 138 MMOL/L (136-145) Potassium Level 4.1 MMOL/L (3.5-5.1) Chloride Level 95 MMOL/L (98-107) L Carbon Dioxide Level 27 MMOL/L (21-32) Blood Urea Nitrogen 89 mg/dL (7-18) H Creatinine 4.0 MG/DL (0.55-1.30) H Estimat Glomerular Filtration Rate 11.1 mL/min (>60) Glucose Level 136 MG/DL (74-106) H Calcium Level 9.9 MG/DL (8.5-10.1) Phosphorus Level 5.4 MG/DL (2.5-4.9) H Magnesium Level 1.8 MG/DL (1.8-2.4) Total Bilirubin 2.9 MG/DL (0.2-1.0) H Direct Bilirubin 2.4 MG/DL (0.0-0.3) H Aspartate Amino Transf (AST/SGOT) 55 U/L (15-37) H Alanine Aminotransferase (ALT/SGPT) 17 U/L (12-78) Alkaline Phosphatase 197 U/L (46-116) H C-Reactive Protein, Quantitative Pending Pro-B-Type Natriuretic Peptide > 97186 pg/mL (0-125) H Total Protein 6.3 G/DL (6.4-8.2) L Albumin 1.9 G/DL (3.4-5.0) L Globulin 4.4 g/dL Albumin/Globulin Ratio 0.4 (1.0-2.7) L Digoxin Level 1.0 NG/ML (0.9-2.0) Test 08/07/20 05:34 08/07/20 09:07 POC Whole Blood Glucose 129 MG/DL (74-106) H 145 MG/DL (74-106) H Current Medications Medications (Trade) Dose Ordered Sig/Toya Route PRN Reason Start Time Stop Time Status Last Admin Dose Admin Acetaminophen (Tylenol) 650 mg EVERY 6 HOURS PRN NG Mild Pain (Pain Scale 1-3) 07/29/20 09:05 08/28/20 09:04 08/06/20 03:21 Acetaminophen (Tylenol) 650 mg EVERY 6 HOURS PRN NG Temp >100.5 07/29/20 09:15 08/28/20 09:14 08/02/20 08:17 Chlorhexidine Gluconate (Yessi-Hex 2%) 1 applic DAILY@1999 TOPIC 07/21/20 20:00 10/19/20 19:59 08/06/20 20:44 Clonidine HCl (Catapres Tab) 0.1 mg Q4H PRN NG bp over 165 syst 07/21/20 12:00 10/14/20 22:44 Dextrose (Dextrose 50%) 25 ml Q30M PRN IV Hypoglycemia 07/22/20 08:00 10/20/20 07:59 08/04/20 18:19 Dextrose (Dextrose 50%) 50 ml Q30M PRN IV Hypoglycemia 07/22/20 08:00 10/20/20 07:59 Epoetin Panchito (Epoetin Panchito(ESRD on dialysis)) 2,000 unit SUBQ 08/03/20 21:00 11/01/20 20:59 08/06/20 20:45 Epoetin Panchito (Epoetin Panchito(ESRD on dialysis)) 8,000 unit SUBQ 08/03/20 21:00 11/01/20 20:59 08/06/20 20:44 Haloperidol Lactate (Haldol) 5 mg Q6H PRN IM Agitation 07/17/20 17:30 08/31/20 17:29 08/01/20 12:13 Insulin Aspart (NovoLOG) Q6HR SUBQ 07/22/20 08:15 10/20/20 11:29 08/07/20 00:25 Insulin Detemir (Levemir) 12 units Q12HR SUBQ 07/24/20 09:00 10/20/20 09:59 08/07/20 09:14 Loperamide HCl (Imodium) 2 mg Q6H PRN NG Diarrhea 07/29/20 15:45 08/28/20 15:44 Midodrine (Pro-Amatine) 15 mg Q8HR NG 08/06/20 22:00 11/01/20 16:29 08/07/20 06:14 Norepinephrine Bitartrate 250 ml @ 7.5 mls/hr Q24H IV 08/05/20 15:45 08/08/20 15:36 08/06/20 21:30 Pantoprazole (Protonix) 40 mg EVERY 12 HOURS IVP 07/21/20 21:00 08/20/20 20:59 08/07/20 09:28 Quetiapine Fumarate (SEROqueL) 50 mg Q12HR ORAL 08/05/20 09:00 09/13/20 20:59 08/07/20 09:28 Vitamin D (Vitamin D) 5,000 unit DAILY ORAL 07/29/20 09:00 08/28/20 08:59 08/07/20 09:28 Kalin Briseno MD Aug 07, 2020 09:56
--- NOTE | 2020-08-07 10:03 | NUR ---
NURSE NOTES: Dr. Gatica at bedside. Patient still on levophed 2mcg. Remains Atrial Fib in outside deliverer. Will continue to monitor.
--- NOTE | 2020-08-07 10:30 | NUR ---
RD ASSESSMENT & RECOMMENDATIONS SEE CARE ACTIVITY FOR COMPLETE ASSESSMENT DAILY ESTIMATED NEEDS: Needs based on ESRD on HD, DM, crtical care 49 adj 25-33 kcals/kg 5380-3527 total kcals 1.25-2 g protein/kg 61-98 g total protein Fluid per MD, on HD NUTRITION DIAGNOSIS: 1) Increased kcal and protein needs R/T renal dysfunction as evidenced by pt w/ESRD on HD. 2) Swallowing difficulty R/T respiratory failure as evidenced by orally intubated, on NGT feeds. 3) Altered nutrition related lab values R/T h/o DM as evidenced by elev BGs (200's and 300's -> now improved 136, 115, 152). CURRENT TF:TF changed to Vital AF 1.2 @ 50ml/hr x 24 hrs ENTERAL NUTRITION RECOMMENDATIONS: Nepro @ 35ml/hr x 24 hrs to provide 840ml, 1512kcal, 68g prot, 611ml free water * Rec renal TF formula of Nepro as pt w/ h/o ESRD dx, HD dep, phos elev * W/ hemodynamic stability, rec goal rate of 35ml/hr x 24 hrs * HOB over 30 degrees/ water flush per MD * Provides 408mg less phos than current TF order WITHOUT HEMODYNAMIC STABILITY, rec trophic feeding of Nepro @ 15ml/hr x 24 hrs if able to keep HOB >30 degrees ADDITIONAL RECOMMENDATIONS: 1) Daily calibrated bedscale wt: Wt fluctuating 80kg's-> 60kg's 2) Monitor BGs closely: BGs now improved Monitor for hypoglycemia, need for insulin adjustment 3) Nephrovite x 1 4) Monitor lytes- phos elev, now on non-renal TF formula 5) Add BARBRA in 4oz water BID via OGT with diet order for skin integrity 6) Add probiotics for diarrhea
--- NOTE | 2020-08-07 11:00 | NUR ---
CASE MANAGEMENT:REVIEW 08/07/20 SI: COVID PNA. ACUTE RESPIRATORY FAILURE ~ INTUBATED ESRD ON HD 99.0 105 34 113/39 94% ON VENT SUPPORT W/70% FIO2 H/H-8.5/24.5 PLT-92 BUN+89 CR+4.0 IS: MIDODRINE NG Q8HRS SEROQUEL NG Q12 EPOETIN SQ MWF IV PROTONIX Q12 : ICU STATUS
--- NOTE | 2020-08-07 11:43 | Cardiac Electrophysiology PN ---
Assessment/Plan Assessment/Plan 1. Hypotension. Off Lopressor EF 40- 45% On Levo 2 Mcg and Midodrine 15 tid 2. Atrial fib with RVR with HR up to 180s with agitation. off Lopressor for hypotension 3. ESRD, on hemodialysis. 4. Hyponatremia, sodium 129. Fluid restriction per Dr. Falk. 5. Volume overload, BNP of more than 35,000 and EF 40-45%. On HD 6. Covid PNA and resp failure on the Vent with 70% Fio2 and PEEP 10 Covid positive 07/11 and 07/17 7. Rectal bleeding. S/P PRBC . FU Gi DW RN Subjective Subjective Confused in restraints. In Covid isolation. Intubated on 70% Fio2 and PEEP 10 In atrial fib in 90-100s on Levo 2 mcg No more rectal bleeding Objective Last 24 Hour Vital Signs Date Time Temp Pulse Resp B/P (MAP) Pulse Ox O2 Delivery O2 Flow Rate FiO2 08/07/20 11:19 100 08/07/20 11:00 123 33 106/40 (62) 93 08/07/20 10:30 122 22 70 08/07/20 10:00 105 34 113/39 (63) 94 08/07/20 09:30 90 21 103/39 (60) 95 08/07/20 09:00 91 18 97/40 (59) 94 08/07/20 08:30 104 20 120/38 (65) 91 08/07/20 08:00 70 08/07/20 08:00 99.0 102 24 145/45 (78) 93 08/07/20 08:00 Mechanical Ventilator 08/07/20 07:49 100 08/07/20 07:30 106 22 149/43 (78) 95 08/07/20 07:00 106 23 149/50 (83) 95 08/07/20 07:00 100 22 70 08/07/20 06:30 105 26 134/43 (73) 98 08/07/20 06:00 93 22 112/45 (67) 96 08/07/20 05:30 94 23 105/42 (63) 95 08/07/20 05:00 114 25 128/40 (69) 95 08/07/20 04:30 131 27 136/68 (90) 96 08/07/20 04:00 99.0 124 34 119/44 (69) 96 08/07/20 04:00 70 08/07/20 04:00 Mechanical Ventilator 08/07/20 04:00 118 08/07/20 03:30 97 22 99/35 (56) 96 08/07/20 03:00 98 8 108/40 (62) 97 08/07/20 02:51 92 20 70 08/07/20 02:30 103 22 130/45 (73) 99 08/07/20 02:00 81 17 104/36 (58) 97 08/07/20 01:30 82 18 96/31 (52) 96 08/07/20 01:23 88 19 97/39 (58) 96 08/07/20 01:00 78 16 96/34 (54) 95 08/07/20 01:00 78 16 96/34 (54) 95 08/07/20 00:30 90 17 114/46 (68) 98 08/07/20 00:00 88 08/07/20 00:00 Mechanical Ventilator 08/07/20 00:00 100.4 100 20 124/47 (72) 98 08/06/20 23:45 98 20 131/38 (69) 98 08/06/20 23:30 95 22 109/43 (65) 97 08/06/20 23:00 88 20 110/40 (63) 95 08/06/20 22:54 88 19 70 08/06/20 22:30 121 22 108/43 (64) 95 08/06/20 22:15 139 22 118/36 (63) 96 08/06/20 22:00 137 24 113/49 (70) 96 08/06/20 21:30 89/45 08/06/20 21:30 93 20 89/37 (54) 96 08/06/20 21:00 87 15 109/27 (54) 98 08/06/20 20:00 98.7 104 23 138/53 (81) 98 08/06/20 20:00 Mechanical Ventilator 08/06/20 20:00 70 08/06/20 19:45 103 22 70 08/06/20 19:45 110 08/06/20 19:00 104 20 148/46 (80) 98 08/06/20 18:00 102 21 141/56 (84) 99 08/06/20 17:00 96 19 96/38 (57) 99 08/06/20 17:00 106 23 112/45 (67) 98 08/06/20 16:52 96 08/06/20 16:00 Mechanical Ventilator 08/06/20 16:00 108 08/06/20 16:00 98.6 106 21 129/47 (74) 98 08/06/20 16:00 70 08/06/20 15:51 103 18 70 08/06/20 15:00 94 17 96/38 (57) 98 08/06/20 14:00 132 22 133/57 (82) 98 08/06/20 13:00 90 17 96/36 (56) 99 08/06/20 13:00 90 17 96/36 (56) 99 08/06/20 12:00 70 08/06/20 12:00 92 17 121/41 (67) 99 08/06/20 12:00 70 08/06/20 12:00 88 08/06/20 12:00 Mechanical Ventilator 08/06/20 12:00 98.9 92 17 121/41 (67) 99 08/06/20 12:00 Mechanical Ventilator 08/06/20 11:44 118/46 Intake and Output 08/06/20 08/07/20 19:00 07:00 Intake Total 345.00 ml 530.00 ml Output Total 150 ml 200 ml Balance 195.00 ml 330.00 ml Free Water 50 ml 60 ml IV Total 135.00 ml 90.00 ml Tube Feeding 160 ml 380 ml Stool Total 150 ml 200 ml Laboratory Tests Test 08/06/20 17:00 08/07/20 00:21 08/07/20 05:25 08/07/20 05:34 POC Whole Blood Glucose 216 MG/DL (74-106) H 204 MG/DL (74-106) H 129 MG/DL (74-106) H White Blood Count 7.8 K/UL (4.8-10.8) Red Blood Count 2.44 M/UL (4.20-5.40) L Hemoglobin 8.5 G/DL (12.0-16.0) L Hematocrit 24.5 % (37.0-47.0) L Mean Corpuscular Volume 100 FL (80-99) H Mean Corpuscular Hemoglobin 34.8 PG (27.0-31.0) H Mean Corpuscular Hemoglobin Concent 34.8 G/DL (32.0-36.0) Red Cell Distribution Width 16.9 % (11.6-14.8) H Platelet Count 92 K/UL (150-450) L Mean Platelet Volume 9.3 FL (6.5-10.1) Neutrophils (%) (Auto) % (45.0-75.0) Lymphocytes (%) (Auto) % (20.0-45.0) Monocytes (%) (Auto) % (1.0-10.0) Eosinophils (%) (Auto) % (0.0-3.0) Basophils (%) (Auto) % (0.0-2.0) Differential Total Cells Counted 100 Neutrophils % (Manual) 94 % (45-75) H Lymphocytes % (Manual) 3 % (20-45) L Monocytes % (Manual) 1 % (1-10) Eosinophils % (Manual) 0 % (0-3) Basophils % (Manual) 0 % (0-2) Band Neutrophils 2 % (0-8) Nucleated Red Blood Cells 2 /100 WBC Platelet Estimate Decreased L Platelet Morphology Normal Hypochromasia 1+ Anisocytosis 1+ Macrocytosis 1+ Sodium Level 138 MMOL/L (136-145) Potassium Level 4.1 MMOL/L (3.5-5.1) Chloride Level 95 MMOL/L (98-107) L Carbon Dioxide Level 27 MMOL/L (21-32) Blood Urea Nitrogen 89 mg/dL (7-18) H Creatinine 4.0 MG/DL (0.55-1.30) H Estimat Glomerular Filtration Rate 11.1 mL/min (>60) Glucose Level 136 MG/DL (74-106) H Calcium Level 9.9 MG/DL (8.5-10.1) Phosphorus Level 5.4 MG/DL (2.5-4.9) H Magnesium Level 1.8 MG/DL (1.8-2.4) Total Bilirubin 2.9 MG/DL (0.2-1.0) H Direct Bilirubin 2.4 MG/DL (0.0-0.3) H Aspartate Amino Transf (AST/SGOT) 55 U/L (15-37) H Alanine Aminotransferase (ALT/SGPT) 17 U/L (12-78) Alkaline Phosphatase 197 U/L (46-116) H C-Reactive Protein, Quantitative Pending Pro-B-Type Natriuretic Peptide > 45553 pg/mL (0-125) H Total Protein 6.3 G/DL (6.4-8.2) L Albumin 1.9 G/DL (3.4-5.0) L Globulin 4.4 g/dL Albumin/Globulin Ratio 0.4 (1.0-2.7) L Digoxin Level 1.0 NG/ML (0.9-2.0) Test 08/07/20 09:07 08/07/20 11:00 POC Whole Blood Glucose 145 MG/DL (74-106) H Arterial Blood pH 7.246 (7.350-7.450) Arterial Blood Partial Pressure CO2 62.3 mmHg (35.0-45.0) *H Arterial Blood Partial Pressure O2 65.5 mmHg (75.0-100.0) L Arterial Blood HCO3 26.5 mmol/L (22.0-26.0) H Arterial Blood Oxygen Saturation 88.0 % (95-100) *L Arterial Blood Base Excess -1.5 (-2-2) Faheem Test Positive Objective HEAD AND NECK: Orally intubated LUNGS: Coarse rhonchi. CARDIOVASCULAR: Regular S1 and S2 with no gallop or murmur. ABDOMEN: Soft. EXTREMITIES: No pitting edema. Zev Gatica MD Aug 07, 2020 11:43
--- NOTE | 2020-08-07 12:00 | NUR ---
NURSE NOTES: No signs and symptoms of hypoglycemia. Tolerating tube feeding.
[2020-08-07] MEDS: Acetaminophen 650mg/20.3ml NG PRN (12:18)
--- NOTE | 2020-08-07 14:00 | NUR ---
NURSE NOTES: Oral care provided. Remains vent dependent.
--- NOTE | 2020-08-07 14:41 | Nephrology Progress Note ---
Assessment/Plan Problem List: (1) Hypertensive kidney disease (2) ESRD (end stage renal disease) (3) Hyperkalemia (4) Suspected 2019 novel coronavirus infection (5) Acute respiratory failure Assessment 70-year-old female with end-stage renal disease Presented with volume overload and hyperkalemia Suspected COVID-19 virus infection Hypertensive emergency Diabetes mellitus CHF Plan August 07: Last dialysis August 05. Patient on 80% FiO2. Pulmonary status unchanged. Patient remains full code. Will order dialysis tomorrow. Labs and medication list reviewed. Discussed with SIDNEY Bojorquez. August 06: Patient was dialyzed yesterday. Labs reviewed. Status quo. Remains intubated on ventilator. Remains full code. The dialysis as needed. August 05: Labs reviewed. Due for dialysis today. Will aim to keep the blood pressure over 95 systolic. Medication list reviewed. Albumin bolus given August 04: Status quo. Will attempt dialysis tomorrow. Blood pressure borderline. Continue per consultants. August 03: Patient remains intubated on ventilator. Transfused yesterday. Leukocytosis worsened. Blood pressure 90 systolic. Will start on midodrine. Continue per consultants. Check lab tomorrow. August 02: Discussed with RN. Patient due for transfusion due to rectal bleed. No dialysis scheduled today. Optimize cardiac and pulmonary status. Dialysis as needed. August 01: Discussed with RN. Patient had dry ultrafiltration yesterday. Patient will have dialysis and ultrafiltration today. Labs reviewed. Continue per consultants. July 31: Discussed with RN. Discussed with nursing student. Chest x-ray still looks wet. Despite of having been dialyzed yesterday we arrange for dialysis an d ultrafiltration today and probably tomorrow. Labs reviewed. Per orders. July 30: Patient on dialysis now. Tolerating well. Labs and medications reviewed. Continue per consultants. Hemoglobin mid sevens. On 10,000 units of Epogen. Transfusion if needed. July 29: Dialyzed yesterday. Due for dialysis tomorrow. Labs reviewed. Iron panel ordered. Epogen dose increased. Continue per consultants. Vitamin D level pending July 28: Patient is about to get started on dialysis. Labs reviewed. Blood pressure 90 to 100 systolic. Continue per consultants. July 27: Patient dialyzed July 26. Labs reviewed. Status quo. Dialysis again in a.m. July 26: Patient was dialyzed this morning. Labs reviewed. Remains intubated on ventilator. Full code. Tachycardic. Continue per consultants. Per orders. July 25: Patient was dialyzed yesterday. 2 L ultrafiltrate it. Discussed with senior security architect today. Attempts at weaning is being tried. Patient will be dialyzed again tomorrow. In view of ejection fraction of 40 to 45% and low blood pressure will adjust the blood pressure medication dosages and give 0.25 mg digoxin IV once. Continue to monitor renal parameters. July 24: Due for dialysis today. Labs reviewed. Low phosphorus replaced. Continue pulmonary support and ID management. Medication list reviewed. BP medication adjusted. July 23: Dialyzed yesterday. Labs reviewed. ABG noted. Patient hypoxic. Vent setting adjusted by senior security architect. Continue current care. Dialysis tomorrow. July 22: Patient on ventilator requiring positive end expiratory pressure. Labs reviewed. Blood sugar elevated. Levemir insulin ordered. Dialysis today. Continue per consultants. July 21: Patient now in ICU. Intubated on ventilator. Was dialyzed. Blood pressure well maintained. Has NG tube. Will start medication through NG tube and start feeding. Continue per consultants. Hemodialysis as needed. July 20: Patient seen and examined. Discussed with RN. Remains enceph alopathic. Poor ABG results. Patient at high risk at this stage. We will transfer patients to ICU for possible airway support. Patient due for dialysis today. Hyperkalemia probably secondary to acidosis. Will arrange for NG tube insertion and give medication through NG tube. July 19: Mental status appears slightly improved. Was dialyzed 2 days in a row. Blood pressure medication adjusted. Next dialysis tomorrow. Continue per consultants. July 18: Patient encephalopathic, was dialyzed yesterday and had 3 L removed. Will order dialysis again today. Continue per ID. Blood pressure medication adjusted. July 17: Stat hemodialysis ordered. Kayexalate for high potassium. Pulmonary support with oxygen or BiPAP as needed Blood pressure support with proper parameters Per orders Subjective ROS Limited/Unobtainable: Yes Objective Objective Last 24 Hour Vital Signs Date Time Temp Pulse Resp B/P (MAP) Pulse Ox O2 Delivery O2 Flow Rate FiO2 08/07/20 14:00 100 21 119/42 (67) 97 08/07/20 13:00 107 20 109/43 (65) 95 08/07/20 12:48 100.3 08/07/20 12:05 80 08/07/20 12:00 80 08/07/20 12:00 Mechanical Ventilator 08/07/20 12:00 100.6 112 22 108/39 (62) 96 08/07/20 12:00 99 08/07/20 11:19 100 08/07/20 11:18 100 08/07/20 11:00 123 33 106/40 (62) 93 08/07/20 10:30 122 22 70 08/07/20 10:00 105 34 113/39 (63) 94 08/07/20 09:30 90 21 103/39 (60) 95 08/07/20 09:00 91 18 97/40 (59) 94 08/07/20 08:30 104 20 120/38 (65) 91 08/07/20 08:00 70 08/07/20 08:00 99.0 102 24 145/45 (78) 93 08/07/20 08:00 Mechanical Ventilator 08/07/20 07:49 100 08/07/20 07:30 106 22 149/43 (78) 95 08/07/20 07:00 106 23 149/50 (83) 95 08/07/20 07:00 100 22 70 08/07/20 06:30 105 26 134/43 (73) 98 08/07/20 06:00 93 22 112/45 (67) 96 08/07/20 05:30 94 23 105/42 (63) 95 08/07/20 05:00 114 25 128/40 (69) 95 08/07/20 04:30 131 27 136/68 (90) 96 08/07/20 04:00 99.0 124 34 119/44 (69) 96 08/07/20 04:00 70 08/07/20 04:00 Mechanical Ventilator 08/07/20 04:00 118 08/07/20 03:30 97 22 99/35 (56) 96 08/07/20 03:00 98 8 108/40 (62) 97 08/07/20 02:51 92 20 70 08/07/20 02:30 103 22 130/45 (73) 99 08/07/20 02:00 81 17 104/36 (58) 97 08/07/20 01:30 82 18 96/31 (52) 96 08/07/20 01:23 88 19 97/39 (58) 96 08/07/20 01:00 78 16 96/34 (54) 95 08/07/20 01:00 78 16 96/34 (54) 95 08/07/20 00:30 90 17 114/46 (68) 98 08/07/20 00:00 88 08/07/20 00:00 Mechanical Ventilator 08/07/20 00:00 100.4 100 20 124/47 (72) 98 08/06/20 23:45 98 20 131/38 (69) 98 08/06/20 23:30 95 22 109/43 (65) 97 08/06/20 23:00 88 20 110/40 (63) 95 08/06/20 22:54 88 19 70 08/06/20 22:30 121 22 108/43 (64) 95 08/06/20 22:15 139 22 118/36 (63) 96 08/06/20 22:00 137 24 113/49 (70) 96 08/06/20 21:30 89/45 08/06/20 21:30 93 20 89/37 (54) 96 08/06/20 21:00 87 15 109/27 (54) 98 08/06/20 20:00 98.7 104 23 138/53 (81) 98 08/06/20 20:00 Mechanical Ventilator 08/06/20 20:00 70 08/06/20 19:45 103 22 70 08/06/20 19:45 110 08/06/20 19:00 104 20 148/46 (80) 98 08/06/20 18:00 102 21 141/56 (84) 99 08/06/20 17:00 96 19 96/38 (57) 99 08/06/20 17:00 106 23 112/45 (67) 98 08/06/20 16:52 96 08/06/20 16:00 Mechanical Ventilator 08/06/20 16:00 108 08/06/20 16:00 98.6 106 21 129/47 (74) 98 08/06/20 16:00 70 08/06/20 15:51 103 18 70 08/06/20 15:00 94 17 96/38 (57) 98 Intake and Output 08/06/20 08/07/20 19:00 07:00 Intake Total 345.00 ml 530.00 ml Output Total 150 ml 200 ml Balance 195.00 ml 330.00 ml Free Water 50 ml 60 ml IV Total 135.00 ml 90.00 ml Tube Feeding 160 ml 380 ml Stool Total 150 ml 200 ml Current Medications Medications (Trade) Dose Ordered Sig/Toya Route PRN Reason Start Time Stop Time Status Last Admin Dose Admin Acetaminophen (Tylenol) 650 mg EVERY 6 HOURS PRN NG Mild Pain (Pain Scale 1-3) 07/29/20 09:05 08/28/20 09:04 08/07/20 12:18 Acetaminophen (Tylenol) 650 mg EVERY 6 HOURS PRN NG Temp >100.5 07/29/20 09:15 08/28/20 09:14 08/02/20 08:17 Chlorhexidine Gluconate (Yessi-Hex 2%) 1 applic DAILY@1999 TOPIC 07/21/20 20:00 10/19/20 19:59 08/06/20 20:44 Clonidine HCl (Catapres Tab) 0.1 mg Q4H PRN NG bp over 165 syst 07/21/20 12:00 10/14/20 22:44 Dextrose (Dextrose 50%) 25 ml Q30M PRN IV Hypoglycemia 07/22/20 08:00 10/20/20 07:59 08/04/20 18:19 Dextrose (Dextrose 50%) 50 ml Q30M PRN IV Hypoglycemia 07/22/20 08:00 10/20/20 07:59 Epoetin Panchito (Epoetin Panchito(ESRD on dialysis)) 2,000 unit SUBQ 08/03/20 21:00 11/01/20 20:59 08/06/20 20:45 Epoetin Panchito (Epoetin Panchito(ESRD on dialysis)) 8,000 unit SUBQ 08/03/20 21:00 11/01/20 20:59 08/06/20 20:44 Haloperidol Lactate (Haldol) 5 mg Q6H PRN IM Agitation 07/17/20 17:30 08/31/20 17:29 08/01/20 12:13 Insulin Aspart (NovoLOG) Q6HR SUBQ 07/22/20 08:15 10/20/20 11:29 08/07/20 13:13 Insulin Detemir (Levemir) 12 units Q12HR SUBQ 07/24/20 09:00 10/20/20 09:59 08/07/20 09:14 Loperamide HCl (Imodium) 2 mg Q6H PRN NG Diarrhea 07/29/20 15:45 08/28/20 15:44 Midodrine (Pro-Amatine) 15 mg Q8HR NG 08/06/20 22:00 11/01/20 16:29 08/07/20 13:13 Norepinephrine Bitartrate 250 ml @ 7.5 mls/hr Q24H IV 08/05/20 15:45 08/08/20 15:36 08/06/20 21:30 Pantoprazole (Protonix) 40 mg EVERY 12 HOURS IVP 07/21/20 21:00 08/20/20 20:59 08/07/20 09:28 Quetiapine Fumarate (SEROqueL) 50 mg Q12HR ORAL 08/05/20 09:00 09/13/20 20:59 08/07/20 09:28 Vitamin D (Vitamin D) 5,000 unit DAILY ORAL 07/29/20 09:00 08/28/20 08:59 08/07/20 09:28 Laboratory Tests 08/06/20 17:00: POC Whole Blood Glucose 216H 08/07/20 00:21: POC Whole Blood Glucose 204H 08/07/20 05:25: White Blood Count 7.8, Red Blood Count 2.44L, Hemoglobin 8.5L, Hematocrit 24.5L, Mean Corpuscular Volume 100H, Mean Corpuscular Hemoglobin 34.8H, Mean Corpuscular Hemoglobin Concent 34.8, Red Cell Distribution Width 16.9H, Platelet Count 92L, Mean Platelet Volume 9.3, Neutrophils (%) (Auto) , Lymphocytes (%) (Auto) , Monocytes (%) (Auto) , Eosinophils (%) (Auto) , Basophils (%) (Auto) , Differential Total Cells Counted 100, Neutrophils % (Manual) 94H, Lymphocytes % (Manual) 3L, Monocytes % (Manual) 1, Eosinophils % (Manual) 0, Basophils % (Manual) 0, Band Neutrophils 2, Nucleated Red Blood Cells 2, Platelet Estimate DecreasedL, Platelet Morphology Normal, Hypochromasia 1+, Anisocytosis 1+, Macrocytosis 1+, Sodium Level 138, Potassium Level 4.1, Chloride Level 95L, Carbon Dioxide Level 27, Blood Urea Nitrogen 89H, Creatinine 4.0H, Estimat Glomerular Filtration Rate 11.1, Glucose Level 136H, Calcium Level 9.9, Phosphorus Level 5.4H, Magnesium Level 1.8, Total Bilirubin 2.9H, Direct Bilirubin 2.4H, Aspartate Amino Transf (AST/SGOT) 55H, Alanine Aminotransferase (ALT/SGPT) 17, Alkaline Phosphatase 197H, C-Reactive Protein, Quantitative [Pending], Pro-B-Type Natriuretic Peptide > 23756R, Total Protein 6.3L, Albumin 1.9L, Globulin 4.4, Albumin/Globulin Ratio 0.4L, Digoxin Level 1.0 08/07/20 05:34: POC Whole Blood Glucose 129H 08/07/20 09:07: POC Whole Blood Glucose 145H 08/07/20 11:00: Arterial Blood pH 7.246*L, Arterial Blood Partial Pressure CO2 62.3*H, Arterial Blood Partial Pressure O2 65.5L, Arterial Blood HCO3 26.5H, Arterial Blood Oxygen Saturation 88.0*L, Arterial Blood Base Excess -1.5, Faheem Test Positive 08/07/20 13:06: POC Whole Blood Glucose 150H Height (Feet): 5 Height (Inches): 4.00 Weight (Pounds): 180 General Appearance: no apparent distress EENT: other - Intubated on ventilator Cardiovascular: tachycardia Respiratory/Chest: decreased breath sounds Abdomen: distended Francis Falk MD Aug 07, 2020 14:41
--- NOTE | 2020-08-07 15:00 | NUR ---
NURSE NOTES: Spoke personally with SIDNEY Toro/ [facility] dialysis nurse regarding dialysis order for tomorrow 08/08/[address] Falk.
--- NOTE | 2020-08-07 16:00 | NUR ---
NURSE NOTES: Bed bath provided. Remains with rectal tube.
--- NOTE | 2020-08-07 18:00 | NUR ---
NURSE NOTES: Spoke with patient's daughter via telephone. Updated with patient's condition.
--- NOTE | 2020-08-07 18:44 | Pulmonology Progress Note ---
Subjective ROS Limited/Unobtainable: Yes Interval Events: FiO2 better Constitutional: Reports: fever, other - Fw=553.4 in am HEENT: Repors: no symptoms Respiratory: Reports: no symptoms Cardiovascular: Reports: no symptoms Gastrointestinal/Abdominal: Reports: other Genitourinary: Reports: no symptoms Allergies: Coded Allergies: No Known Allergies (Unverified , 05/12/17) All Systems: reviewed and negative except above Objective Last 24 Hour Vital Signs Date Time Temp Pulse Resp B/P (MAP) Pulse Ox O2 Delivery O2 Flow Rate FiO2 08/07/20 18:00 148 19 107/38 (61) 96 08/07/20 17:00 123 24 127/96 (106) 97 08/07/20 16:00 Mechanical Ventilator 08/07/20 16:00 99.0 100 19 107/46 (66) 98 08/07/20 16:00 80 08/07/20 16:00 118 08/07/20 15:18 107 21 80 08/07/20 15:00 94 18 121/43 (69) 96 08/07/20 14:00 100 21 119/42 (67) 97 08/07/20 13:00 107 20 109/43 (65) 95 08/07/20 12:48 100.3 08/07/20 12:05 80 08/07/20 12:00 80 08/07/20 12:00 Mechanical Ventilator 08/07/20 12:00 100.6 112 22 108/39 (62) 96 08/07/20 12:00 99 08/07/20 11:19 100 08/07/20 11:18 100 08/07/20 11:00 123 33 106/40 (62) 93 08/07/20 10:30 122 22 70 08/07/20 10:00 105 34 113/39 (63) 94 08/07/20 09:30 90 21 103/39 (60) 95 08/07/20 09:00 91 18 97/40 (59) 94 08/07/20 08:30 104 20 120/38 (65) 91 08/07/20 08:00 70 08/07/20 08:00 99.0 102 24 145/45 (78) 93 08/07/20 08:00 Mechanical Ventilator 08/07/20 07:49 100 08/07/20 07:30 106 22 149/43 (78) 95 08/07/20 07:00 106 23 149/50 (83) 95 08/07/20 07:00 100 22 70 08/07/20 06:30 105 26 134/43 (73) 98 08/07/20 06:00 93 22 112/45 (67) 96 08/07/20 05:30 94 23 105/42 (63) 95 08/07/20 05:00 114 25 128/40 (69) 95 08/07/20 04:30 131 27 136/68 (90) 96 08/07/20 04:00 99.0 124 34 119/44 (69) 96 08/07/20 04:00 70 08/07/20 04:00 Mechanical Ventilator 08/07/20 04:00 118 08/07/20 03:30 97 22 99/35 (56) 96 08/07/20 03:00 98 8 108/40 (62) 97 08/07/20 02:51 92 20 70 08/07/20 02:30 103 22 130/45 (73) 99 08/07/20 02:00 81 17 104/36 (58) 97 08/07/20 01:30 82 18 96/31 (52) 96 08/07/20 01:23 88 19 97/39 (58) 96 08/07/20 01:00 78 16 96/34 (54) 95 08/07/20 01:00 78 16 96/34 (54) 95 08/07/20 00:30 90 17 114/46 (68) 98 08/07/20 00:00 88 08/07/20 00:00 Mechanical Ventilator 08/07/20 00:00 100.4 100 20 124/47 (72) 98 08/06/20 23:45 98 20 131/38 (69) 98 08/06/20 23:30 95 22 109/43 (65) 97 08/06/20 23:00 88 20 110/40 (63) 95 08/06/20 22:54 88 19 70 08/06/20 22:30 121 22 108/43 (64) 95 08/06/20 22:15 139 22 118/36 (63) 96 08/06/20 22:00 137 24 113/49 (70) 96 08/06/20 21:30 89/45 08/06/20 21:30 93 20 89/37 (54) 96 08/06/20 21:00 87 15 109/27 (54) 98 08/06/20 20:00 98.7 104 23 138/53 (81) 98 08/06/20 20:00 Mechanical Ventilator 08/06/20 20:00 70 08/06/20 19:45 103 22 70 08/06/20 19:45 110 08/06/20 19:00 104 20 148/46 (80) 98 Intake and Output 08/06/20 08/07/20 19:00 07:00 Intake Total 345.00 ml 530.00 ml Output Total 150 ml 200 ml Balance 195.00 ml 330.00 ml Free Water 50 ml 60 ml IV Total 135.00 ml 90.00 ml Tube Feeding 160 ml 380 ml Stool Total 150 ml 200 ml General Appearance: WD/WN, no acute distress, other - intubation HEENT: normocephalic Respiratory: chest wall non-tender, crackles/rales Cardiovascular: normal rate, regular rhythm Laboratory Tests 08/07/20 00:21: POC Whole Blood Glucose 204H 08/07/20 05:25: White Blood Count 7.8, Red Blood Count 2.44L, Hemoglobin 8.5L, Hematocrit 24.5L, Mean Corpuscular Volume 100H, Mean Corpuscular Hemoglobin 34.8H, Mean Corpuscular Hemoglobin Concent 34.8, Red Cell Distribution Width 16.9H, Platelet Count 92L, Mean Platelet Volume 9.3, Neutrophils (%) (Auto) , Lymphocytes (%) (Auto) , Monocytes (%) (Auto) , Eosinophils (%) (Auto) , Basophils (%) (Auto) , Differential Total Cells Counted 100, Neutrophils % (Manual) 94H, Lymphocytes % (Manual) 3L, Monocytes % (Manual) 1, Eosinophils % (Manual) 0, Basophils % (Manual) 0, Band Neutrophils 2, Nucleated Red Blood Cells 2, Platelet Estimate DecreasedL, Platelet Morphology Normal, Hypochromasia 1+, Anisocytosis 1+, Macrocytosis 1+, Sodium Level 138, Potassium Level 4.1, Chloride Level 95L, Carbon Dioxide Level 27, Blood Urea Nitrogen 89H, Creatinine 4.0H, Estimat Glomerular Filtration Rate 11.1, Glucose Level 136H, Calcium Level 9.9, Phosphorus Level 5.4H, Magnesium Level 1.8, Total Bilirubin 2.9H, Direct Bilirubin 2.4H, Aspartate Amino Transf (AST/SGOT) 55H, Alanine Aminotransferase (ALT/SGPT) 17, Alkaline Phosphatase 197H, C-Reactive Protein, Quantitative 316.6H, Pro-B-Type Natriuretic Peptide > 74693L, Total Protein 6.3L, Albumin 1.9L, Globulin 4.4, Albumin/Globulin Ratio 0.4L, Digoxin Level 1.0 08/07/20 05:34: POC Whole Blood Glucose 129H 08/07/20 09:07: POC Whole Blood Glucose 145H 08/07/20 11:00: Arterial Blood pH 7.246*L, Arterial Blood Partial Pressure CO2 62.3*H, Arterial Blood Partial Pressure O2 65.5L, Arterial Blood HCO3 26.5H, Arterial Blood Oxygen Saturation 88.0*L, Arterial Blood Base Excess -1.5, Faheem Test Positive 08/07/20 13:06: POC Whole Blood Glucose 150H 08/07/20 17:02: POC Whole Blood Glucose 184H Current Medications Medications (Trade) Dose Ordered Sig/Toya Route PRN Reason Start Time Stop Time Status Last Admin Dose Admin Acetaminophen (Tylenol) 650 mg EVERY 6 HOURS PRN NG Mild Pain (Pain Scale 1-3) 07/29/20 09:05 08/28/20 09:04 08/07/20 12:18 Acetaminophen (Tylenol) 650 mg EVERY 6 HOURS PRN NG Temp >100.5 07/29/20 09:15 08/28/20 09:14 08/02/20 08:17 Chlorhexidine Gluconate (Yessi-Hex 2%) 1 applic DAILY@1999 TOPIC 07/21/20 20:00 10/19/20 19:59 08/06/20 20:44 Clonidine HCl (Catapres Tab) 0.1 mg Q4H PRN NG bp over 165 syst 07/21/20 12:00 10/14/20 22:44 Dextrose (Dextrose 50%) 25 ml Q30M PRN IV Hypoglycemia 07/22/20 08:00 10/20/20 07:59 08/04/20 18:19 Dextrose (Dextrose 50%) 50 ml Q30M PRN IV Hypoglycemia 07/22/20 08:00 10/20/20 07:59 Epoetin Panchito (Epoetin Panchito(ESRD on dialysis)) 2,000 unit SUBQ 08/03/20 21:00 11/01/20 20:59 08/06/20 20:45 Epoetin Panchito (Epoetin Panchito(ESRD on dialysis)) 8,000 unit SUBQ 08/03/20 21:00 11/01/20 20:59 08/06/20 20:44 Haloperidol Lactate (Haldol) 5 mg Q6H PRN IM Agitation 07/17/20 17:30 08/31/20 17:29 08/01/20 12:13 Insulin Aspart (NovoLOG) Q6HR SUBQ 07/22/20 08:15 10/20/20 11:29 08/07/20 17:07 Insulin Detemir (Levemir) 12 units Q12HR SUBQ 07/24/20 09:00 10/20/20 09:59 08/07/20 09:14 Loperamide HCl (Imodium) 2 mg Q6H PRN NG Diarrhea 07/29/20 15:45 08/28/20 15:44 Midodrine (Pro-Amatine) 15 mg Q8HR NG 08/06/20 22:00 11/01/20 16:29 08/07/20 13:13 Norepinephrine Bitartrate 250 ml @ 7.5 mls/hr Q24H IV 08/05/20 15:45 08/08/20 15:36 08/06/20 21:30 Pantoprazole (Protonix) 40 mg EVERY 12 HOURS IVP 07/21/20 21:00 08/20/20 20:59 08/07/20 09:28 Quetiapine Fumarate (SEROqueL) 50 mg Q12HR ORAL 08/05/20 09:00 09/13/20 20:59 08/07/20 09:28 Vitamin D (Vitamin D) 5,000 unit DAILY ORAL 07/29/20 09:00 08/28/20 08:59 08/07/20 09:28 Assessment/Plan Assessment/Plan Assessment/Plan 1. COVID-19 pneumonia. - on Abx 2. COPD 3. Pneumonia 4. Hypertensive emergency. 5. Leukocytosis. 6. Anemia. 7. Hyponatremia. 8. Hyperkalemia. 9. Hypochloridemia. 10. Hyperglycemia. 11. ESRD, on dialysis. 12. Respiratory failure; intubated PLAN Continue O2; currently 70% Vent; AC mode On PEEP now 8 CXR 08/03 improvement in mild to moderate diffuse bilateral alveolar infiltrates since the prior study Discussed with Dr Falk Will attempt wean when FiO2 and PEEP are lower Levy Law MD, MD Aug 07, 2020 18:44
--- NOTE | 2020-08-07 19:16 | General Progress Note ---
Subjective Allergies: Coded Allergies: No Known Allergies (Unverified , 05/12/17) Subjective above noted doing poorly on high O2 with PEEP on low dose pressors, but cant be weaned off Objective Last 24 Hour Vital Signs Date Time Temp Pulse Resp B/P (MAP) Pulse Ox O2 Delivery O2 Flow Rate FiO2 08/07/20 18:00 148 19 107/38 (61) 96 08/07/20 17:00 123 24 127/96 (106) 97 08/07/20 16:00 Mechanical Ventilator 08/07/20 16:00 99.0 100 19 107/46 (66) 98 08/07/20 16:00 80 08/07/20 16:00 118 08/07/20 15:18 107 21 80 08/07/20 15:00 94 18 121/43 (69) 96 08/07/20 14:00 100 21 119/42 (67) 97 08/07/20 13:00 107 20 109/43 (65) 95 08/07/20 12:48 100.3 08/07/20 12:05 80 08/07/20 12:00 80 08/07/20 12:00 Mechanical Ventilator 08/07/20 12:00 100.6 112 22 108/39 (62) 96 08/07/20 12:00 99 08/07/20 11:19 100 08/07/20 11:18 100 08/07/20 11:00 123 33 106/40 (62) 93 08/07/20 10:30 122 22 70 08/07/20 10:00 105 34 113/39 (63) 94 08/07/20 09:30 90 21 103/39 (60) 95 08/07/20 09:00 91 18 97/40 (59) 94 08/07/20 08:30 104 20 120/38 (65) 91 08/07/20 08:00 70 08/07/20 08:00 99.0 102 24 145/45 (78) 93 08/07/20 08:00 Mechanical Ventilator 08/07/20 07:49 100 08/07/20 07:30 106 22 149/43 (78) 95 08/07/20 07:00 106 23 149/50 (83) 95 08/07/20 07:00 100 22 70 08/07/20 06:30 105 26 134/43 (73) 98 08/07/20 06:00 93 22 112/45 (67) 96 08/07/20 05:30 94 23 105/42 (63) 95 08/07/20 05:00 114 25 128/40 (69) 95 08/07/20 04:30 131 27 136/68 (90) 96 08/07/20 04:00 99.0 124 34 119/44 (69) 96 08/07/20 04:00 70 08/07/20 04:00 Mechanical Ventilator 08/07/20 04:00 118 08/07/20 03:30 97 22 99/35 (56) 96 08/07/20 03:00 98 8 108/40 (62) 97 08/07/20 02:51 92 20 70 08/07/20 02:30 103 22 130/45 (73) 99 08/07/20 02:00 81 17 104/36 (58) 97 08/07/20 01:30 82 18 96/31 (52) 96 08/07/20 01:23 88 19 97/39 (58) 96 08/07/20 01:00 78 16 96/34 (54) 95 08/07/20 01:00 78 16 96/34 (54) 95 08/07/20 00:30 90 17 114/46 (68) 98 08/07/20 00:00 88 08/07/20 00:00 Mechanical Ventilator 08/07/20 00:00 100.4 100 20 124/47 (72) 98 08/06/20 23:45 98 20 131/38 (69) 98 08/06/20 23:30 95 22 109/43 (65) 97 08/06/20 23:00 88 20 110/40 (63) 95 08/06/20 22:54 88 19 70 08/06/20 22:30 121 22 108/43 (64) 95 08/06/20 22:15 139 22 118/36 (63) 96 08/06/20 22:00 137 24 113/49 (70) 96 08/06/20 21:30 89/45 08/06/20 21:30 93 20 89/37 (54) 96 08/06/20 21:00 87 15 109/27 (54) 98 08/06/20 20:00 98.7 104 23 138/53 (81) 98 08/06/20 20:00 Mechanical Ventilator 08/06/20 20:00 70 08/06/20 19:45 103 22 70 08/06/20 19:45 110 Intake and Output 08/06/20 08/07/20 19:00 07:00 Intake Total 345.00 ml 530.00 ml Output Total 150 ml 200 ml Balance 195.00 ml 330.00 ml Free Water 50 ml 60 ml IV Total 135.00 ml 90.00 ml Tube Feeding 160 ml 380 ml Stool Total 150 ml 200 ml Laboratory Tests 08/07/20 00:21: POC Whole Blood Glucose 204H 08/07/20 05:25: White Blood Count 7.8, Red Blood Count 2.44L, Hemoglobin 8.5L, Hematocrit 24.5L, Mean Corpuscular Volume 100H, Mean Corpuscular Hemoglobin 34.8H, Mean Corpuscular Hemoglobin Concent 34.8, Red Cell Distribution Width 16.9H, Platelet Count 92L, Mean Platelet Volume 9.3, Neutrophils (%) (Auto) , Lymphocytes (%) (Auto) , Monocytes (%) (Auto) , Eosinophils (%) (Auto) , Basophils (%) (Auto) , Differential Total Cells Counted 100, Neutrophils % (Manual) 94H, Lymphocytes % (Manual) 3L, Monocytes % (Manual) 1, Eosinophils % (Manual) 0, Basophils % (Manual) 0, Band Neutrophils 2, Nucleated Red Blood Cells 2, Platelet Estimate DecreasedL, Platelet Morphology Normal, Hypochromasia 1+, Anisocytosis 1+, Macrocytosis 1+, Sodium Level 138, Potassium Level 4.1, Chloride Level 95L, Carbon Dioxide Level 27, Blood Urea Nitrogen 89H, Creatinine 4.0H, Estimat Glomerular Filtration Rate 11.1, Glucose Level 136H, Calcium Level 9.9, Phosphorus Level 5.4H, Magnesium Level 1.8, Total Bilirubin 2.9H, Direct Bilirubin 2.4H, Aspartate Amino Transf (AST/SGOT) 55H, Alanine Aminotransferase (ALT/SGPT) 17, Alkaline Phosphatase 197H, C-Reactive Protein, Quantitative 316.6H, Pro-B-Type Natriuretic Peptide > 54846X, Total Protein 6.3L, Albumin 1.9L, Globulin 4.4, Albumin/Globulin Ratio 0.4L, Digoxin Level 1.0 08/07/20 05:34: POC Whole Blood Glucose 129H 08/07/20 09:07: POC Whole Blood Glucose 145H 08/07/20 11:00: Arterial Blood pH 7.246*L, Arterial Blood Partial Pressure CO2 62.3*H, Arterial Blood Partial Pressure O2 65.5L, Arterial Blood HCO3 26.5H, Arterial Blood Oxygen Saturation 88.0*L, Arterial Blood Base Excess -1.5, Faheem Test Positive 08/07/20 13:06: POC Whole Blood Glucose 150H 08/07/20 17:02: POC Whole Blood Glucose 184H Height (Feet): 5 Height (Inches): 4.00 Weight (Pounds): 180 Objective Elderly woman seen in ICU on vent Coarse BS RR abd soft No edema Assessment/Plan Status: progressing, deteriorating Assessment/Plan: Assessment - Recurrent GI bleed - diarrhea - improved - leukocytosis / shock / sepsis - improved - anemia - s/p multiple endoscopies and colonoscopies this year - resp failure - COPD - COVID PNA - abnormal LFT - presumed COVID related - DM - Cholelithiasis - Poor Px Recommendations - PPI BID - Tube feeds --> VItal AF - follow labs - HD - PRN transfusion - No plans for endoscopy per discussion with family - Can consider HIDA, but WBC now normal - will follow Ramakrishna Leonard MD Aug 07, 2020 19:16
--- NOTE | 2020-08-07 19:20 | NUR ---
NURSE HAND-OFF REPORT: Latest Vital Signs: Temperature 99.0 , Pulse 118 , B/P 92 /50 , Respiratory Rate 26 , O2 SAT 95 , Mechanical ventilator dependent. Vital Sign Comment: on levophed drip EKG Rhythm: Atrial Fibrillation Rhythm change?: N Latest Elizabeth Fall Score: 50 Fall Risk: High Risk Safety Measures: Call light Within Reach, Bed Alarm Zone 1, Side Rails Side Rails x3, Bed position Low and Locked. Fall Precautions: Yellow Socks Yellow Gown Door Sign Patient Fall Education Report given to Nini Ernandez RN.
--- NOTE | 2020-08-07 19:59 | Psychiatric Progress Note ---
Psychiatry Progress Note Psychiatry Progress Note Medications Current Medications Medications (Trade) Dose Ordered Sig/Toya Route PRN Reason Start Time Stop Time Status Last Admin Dose Admin Acetaminophen (Tylenol) 650 mg EVERY 6 HOURS PRN NG Mild Pain (Pain Scale 1-3) 07/29/20 09:05 08/28/20 09:04 08/07/20 12:18 Acetaminophen (Tylenol) 650 mg EVERY 6 HOURS PRN NG Temp >100.5 07/29/20 09:15 08/28/20 09:14 08/02/20 08:17 Chlorhexidine Gluconate (Yessi-Hex 2%) 1 applic DAILY@1999 TOPIC 07/21/20 20:00 10/19/20 19:59 08/06/20 20:44 Clonidine HCl (Catapres Tab) 0.1 mg Q4H PRN NG bp over 165 syst 07/21/20 12:00 10/14/20 22:44 Dextrose (Dextrose 50%) 25 ml Q30M PRN IV Hypoglycemia 07/22/20 08:00 10/20/20 07:59 08/04/20 18:19 Dextrose (Dextrose 50%) 50 ml Q30M PRN IV Hypoglycemia 07/22/20 08:00 10/20/20 07:59 Epoetin Panchito (Epoetin Panchito(ESRD on dialysis)) 2,000 unit THU-THU-THU SUBQ 08/03/20 21:00 11/01/20 20:59 08/06/20 20:45 Epoetin Panchito (Epoetin Panchito(ESRD on dialysis)) 8,000 unit THU-THU-THU SUBQ 08/03/20 21:00 11/01/20 20:59 08/06/20 20:44 Haloperidol Lactate (Haldol) 5 mg Q6H PRN IM Agitation 07/17/20 17:30 08/31/20 17:29 08/01/20 12:13 Insulin Aspart (NovoLOG) Q6HR SUBQ 07/22/20 08:15 10/20/20 11:29 08/07/20 17:07 Insulin Detemir (Levemir) 12 units Q12HR SUBQ 07/24/20 09:00 10/20/20 09:59 08/07/20 09:14 Loperamide HCl (Imodium) 2 mg Q6H PRN NG Diarrhea 07/29/20 15:45 08/28/20 15:44 Midodrine (Pro-Amatine) 15 mg Q8HR NG 08/06/20 22:00 11/01/20 16:29 08/07/20 13:13 Norepinephrine Bitartrate 250 ml @ 7.5 mls/hr Q24H IV 08/05/20 15:45 08/08/20 15:36 08/06/20 21:30 Pantoprazole (Protonix) 40 mg EVERY 12 HOURS IVP 07/21/20 21:00 08/20/20 20:59 08/07/20 09:28 Quetiapine Fumarate (SEROqueL) 50 mg Q12HR ORAL 08/05/20 09:00 09/13/20 20:59 08/07/20 09:28 Vitamin D (Vitamin D) 5,000 unit DAILY ORAL 07/29/20 09:00 08/28/20 08:59 08/07/20 09:28 Neurological/Psychiatric: Reports: anxiety, depressed; Denies: no symptoms, emotional problems, headache, numbness, paresthesia, pre-existing deficit, seizure, tingling, tremors, weakness, other Allergies: Coded Allergies: No Known Allergies (Unverified , 05/12/17) Objective Data Height (Feet): 5 Height (Inches): 4.00 Weight (Pounds): 180 General Appearance: no apparent distress Additional Comments: MENTAL STATUS EXAMINATION: The patient is having waxing and waning consciousness. Mood is irritable and anxious. Affect is blunted, congruent with mood. Thought process is concrete. Thought content, no suicidal or homicidal ideation. Cognition is impaired. Insight and judgment is impaired. Assessment/Plan [place] I: ASSESSMENT: [place] I Acute toxic encephalopathy. [place] II Deferred. [place] III COVID-19. [place] IV Low. [place] V 20. PLAN: 1. We will start the patient on low dose of antipsychotics. 2. restraints. 3. Discussed with the nurse. Status: progressing, deteriorating Status Narrative ASSESSMENT: [place] I Acute toxic encephalopathy. [place] II Deferred. [place] III COVID-19. [place] IV Low. [place] V 20. PLAN: 1. We will start the patient on low dose of antipsychotics. 2. restraints. 3. Discussed with the nurse. Assessment/Plan: ASSESSMENT: [place] I Acute toxic encephalopathy. [place] II Deferred. [place] III COVID-19. [place] IV Low. [place] V 20. PLAN: 1. We will start the patient on low dose of antipsychotics. 2. restraints. 3. Discussed with the nurse. Alecia Collins MD Aug 07, 2020 19:59
--- NOTE | 2020-08-07 20:01 | NUR ---
NURSE NOTES: Pts BP 0n the 70s. Increase levophed drip up to 5mcg/min.
[2020-08-07] MEDS: Dyna-Hex 2% Top Sol 2oz TOPIC SCH (20:28)
--- NOTE | 2020-08-07 21:03 | General Progress Note ---
Subjective ROS Limited/Unobtainable: Yes Allergies: Coded Allergies: No Known Allergies (Unverified , 05/12/17) Objective Last 24 Hour Vital Signs Date Time Temp Pulse Resp B/P (MAP) Pulse Ox O2 Delivery O2 Flow Rate FiO2 08/07/20 19:09 118 26 80 08/07/20 19:00 120 18 92/50 (64) 95 08/07/20 18:00 148 19 107/38 (61) 96 08/07/20 17:00 123 24 127/96 (106) 97 08/07/20 16:00 Mechanical Ventilator 08/07/20 16:00 99.0 100 19 107/46 (66) 98 08/07/20 16:00 80 08/07/20 16:00 118 08/07/20 15:18 107 21 80 08/07/20 15:00 94 18 121/43 (69) 96 08/07/20 14:00 100 21 119/42 (67) 97 08/07/20 13:00 107 20 109/43 (65) 95 08/07/20 12:48 100.3 08/07/20 12:05 80 08/07/20 12:00 80 08/07/20 12:00 Mechanical Ventilator 08/07/20 12:00 100.6 112 22 108/39 (62) 96 08/07/20 12:00 99 08/07/20 11:19 100 08/07/20 11:18 100 08/07/20 11:00 123 33 106/40 (62) 93 08/07/20 10:30 122 22 70 08/07/20 10:00 105 34 113/39 (63) 94 08/07/20 09:30 90 21 103/39 (60) 95 08/07/20 09:00 91 18 97/40 (59) 94 08/07/20 08:30 104 20 120/38 (65) 91 08/07/20 08:00 70 08/07/20 08:00 99.0 102 24 145/45 (78) 93 08/07/20 08:00 Mechanical Ventilator 08/07/20 07:49 100 08/07/20 07:30 106 22 149/43 (78) 95 08/07/20 07:00 106 23 149/50 (83) 95 08/07/20 07:00 100 22 70 08/07/20 06:30 105 26 134/43 (73) 98 08/07/20 06:00 93 22 112/45 (67) 96 08/07/20 05:30 94 23 105/42 (63) 95 08/07/20 05:00 114 25 128/40 (69) 95 08/07/20 04:30 131 27 136/68 (90) 96 08/07/20 04:00 99.0 124 34 119/44 (69) 96 08/07/20 04:00 70 08/07/20 04:00 Mechanical Ventilator 08/07/20 04:00 118 08/07/20 03:30 97 22 99/35 (56) 96 08/07/20 03:00 98 8 108/40 (62) 97 08/07/20 02:51 92 20 70 08/07/20 02:30 103 22 130/45 (73) 99 08/07/20 02:00 81 17 104/36 (58) 97 08/07/20 01:30 82 18 96/31 (52) 96 08/07/20 01:23 88 19 97/39 (58) 96 08/07/20 01:00 78 16 96/34 (54) 95 08/07/20 01:00 78 16 96/34 (54) 95 08/07/20 00:30 90 17 114/46 (68) 98 08/07/20 00:00 88 08/07/20 00:00 Mechanical Ventilator 08/07/20 00:00 100.4 100 20 124/47 (72) 98 08/06/20 23:45 98 20 131/38 (69) 98 08/06/20 23:30 95 22 109/43 (65) 97 08/06/20 23:00 88 20 110/40 (63) 95 08/06/20 22:54 88 19 70 08/06/20 22:30 121 22 108/43 (64) 95 08/06/20 22:15 139 22 118/36 (63) 96 08/06/20 22:00 137 24 113/49 (70) 96 08/06/20 21:30 89/45 08/06/20 21:30 93 20 89/37 (54) 96 Intake and Output 08/06/20 08/07/20 19:00 07:00 Intake Total 345.00 ml 530.00 ml Output Total 150 ml 200 ml Balance 195.00 ml 330.00 ml Free Water 50 ml 60 ml IV Total 135.00 ml 90.00 ml Tube Feeding 160 ml 380 ml Stool Total 150 ml 200 ml Laboratory Tests 08/07/20 00:21: POC Whole Blood Glucose 204H 08/07/20 05:25: White Blood Count 7.8, Red Blood Count 2.44L, Hemoglobin 8.5L, Hematocrit 24.5L, Mean Corpuscular Volume 100H, Mean Corpuscular Hemoglobin 34.8H, Mean Corpuscular Hemoglobin Concent 34.8, Red Cell Distribution Width 16.9H, Platelet Count 92L, Mean Platelet Volume 9.3, Neutrophils (%) (Auto) , Lymphocytes (%) (Auto) , Monocytes (%) (Auto) , Eosinophils (%) (Auto) , Basophils (%) (Auto) , Differential Total Cells Counted 100, Neutrophils % (Manual) 94H, Lymphocytes % (Manual) 3L, Monocytes % (Manual) 1, Eosinophils % (Manual) 0, Basophils % (Manual) 0, Band Neutrophils 2, Nucleated Red Blood Cells 2, Platelet Estimate DecreasedL, Platelet Morphology Normal, Hypochromasia 1+, Anisocytosis 1+, Macrocytosis 1+, Sodium Level 138, Potassium Level 4.1, Chloride Level 95L, Carbon Dioxide Level 27, Blood Urea Nitrogen 89H, Creatinine 4.0H, Estimat Glomerular Filtration Rate 11.1, Glucose Level 136H, Calcium Level 9.9, Phosphorus Level 5.4H, Magnesium Level 1.8, Total Bilirubin 2.9H, Direct Bilirubin 2.4H, Aspartate Amino Transf (AST/SGOT) 55H, Alanine Aminotransferase (ALT/SGPT) 17, Alkaline Phosphatase 197H, C-Reactive Protein, Quantitative 316.6H, Pro-B-Type Natriuretic Peptide > 44295F, Total Protein 6.3L, Albumin 1.9L, Globulin 4.4, Albumin/Globulin Ratio 0.4L, Digoxin Level 1.0 08/07/20 05:34: POC Whole Blood Glucose 129H 08/07/20 09:07: POC Whole Blood Glucose 145H 08/07/20 11:00: Arterial Blood pH 7.246*L, Arterial Blood Partial Pressure CO2 62.3*H, Arterial Blood Partial Pressure O2 65.5L, Arterial Blood HCO3 26.5H, Arterial Blood Oxygen Saturation 88.0*L, Arterial Blood Base Excess -1.5, Faheem Test Positive 08/07/20 13:06: POC Whole Blood Glucose 150H 08/07/20 17:02: POC Whole Blood Glucose 184H 08/07/20 20:34: POC Whole Blood Glucose 125H Height (Feet): 5 Height (Inches): 4.00 Weight (Pounds): 180 Assessment/Plan Problem List: (1) Pneumonia ICD Codes: J18.9 - Pneumonia, unspecified organism SNOMED: 463506791 (2) Hypertension ICD Codes: I10 - Essential (primary) hypertension SNOMED: 63112684 (3) Renal failure ICD Codes: N19 - Unspecified kidney failure SNOMED: 92290979 (4) Anemia in chronic kidney disease (CKD) ICD Codes: N18.9 - Chronic kidney disease, unspecified; D63.1 - Anemia in chronic kidney disease SNOMED: 126128575 (5) weakness (6) ESRD (end stage renal disease) ICD Codes: N18.6 - End stage renal disease SNOMED: 60644702 (7) Diabetic nephropathy with proteinuria ICD Codes: E11.21 - Type 2 diabetes mellitus with diabetic nephropathy SNOMED: 85174446, 440974599 Status: progressing, deteriorating Assessment/Plan: sepsis pna covid + septic shock on pressors prn not improving dm poor prognosis Makenna Daniel MD Aug 07, 2020 21:02
[2020-08-07] MEDS: Norepinephrine 4mg/NS Premix 250 ML IV SCH (21:05)
--- NOTE | 2020-08-07 21:15 | NUR ---
NURSE NOTES: Bp 69/36, Levophed drip increase t0 10mcg/min.
[2020-08-08] VITALS (37 sets, daily range): BP systolic 50–127; BP diastolic 27–64
--- NOTE | 2020-08-08 | NUR ---
NURSE NOTES: Temp 100F cooling measures started.
[2020-08-08] MEDS: NovoLOG Insulin Flexpen SUBQ SCH ×3 (00:20→12:00)
--- NOTE | 2020-08-08 02:00 | NUR ---
NURSE NOTES: Bp labile.Levophed drip at 6mcg/min at this time.
--- NOTE | 2020-08-08 02:13 | Cardiology Report ---
APPROVED REPORT EKG Measurement Heart [id number] LA 254P68 [id number] <Conclusion> Sinus rhythm with 1st degree AV block Right axis deviation Cannot rule out Anterior infarct, age undetermined Abnormal ECG
--- NOTE | 2020-08-08 02:20 | Cardiology Report ---
APPROVED REPORT EKG Measurement Heart [id number] [place] 190P60 [id number] <Conclusion> Normal sinus rhythm Cannot rule out Anterior infarct, age undetermined Abnormal ECG
--- NOTE | 2020-08-08 02:24 | Cardiology Report ---
APPROVED REPORT EXAM: Two-dimensional and M-mode echocardiogram with Doppler and color Doppler. INDICATION Congestive Heart Failure M-Mode DIMENSIONS IVSd1.3 (0.7-1.1cm)Left Atrium (MM)6.2 (1.6-4.0cm) LVDd5.4 (3.5-5.6cm)Aortic Root2.2 (2.0-3.7cm) PWd1.3 (0.7-1.1cm)Aortic Cusp Exc.1.0 (1.5-2.0cm) IVSs1.3 cm LVDs3.9 (2.5-4.0cm) PWs2.1 cm <Conclusion> Technically difficult study due to combative patient. Normal left ventricular chamber size. Severe apical and inferoseptal hypokinesis. Left ventricular ejection fraction estimated to be 35-40%. Small circumfrential pericardial effusion. Moderate bi-atrial enlargement. Right ventricular size at upper limits of normal. Moderate aortic valve calcification with decreased cusp excursion c/w aortic stenosis. Moderate thickened mitral valve leaflets with normal excursion. Mitral annulus and aortic root calcification. Pulmonic valve not well visualized. Normal tricuspid valve structure. IVC dilated at 2.6 cm with slightly physiologic collapse suggestive of increased RA pressure. A color flow and spectral Doppler study was performed and revealed: Trace aortic insufficiency. Peak aortic valve gradient of 33 mm Hg and a mean of 18 mmHg. Aortic valve area 1.2 cm2 calculated by continuity equation. Moderate to severe mitral regurgitation. Peak mitral valve gradient of 15 mm Hg and a mean of 5 mmHg. Severe tricuspid regurgitation. Mitral inflow indicates restrictive pattern, implying severely elevated left atrial pressure (Grade III ). Tricuspid systolic velocities suggests peak right ventricular systolic pressure of 96 mmHg, consistent with severe pulmonary hypertension. Trace pulmonic regurgitation present.
--- NOTE | 2020-08-08 05:00 | NUR ---
NURSE NOTES: BP 68/41, increased levophed drip to 20mcg/min.
[2020-08-08] MEDS: Norepinephrine 4mg/NS Premix 250 ML IV SCH ×2 (05:34→08:28)
[2020-08-08 05:39] LABS: HEMOGLOBIN 8.6 G/DL (12.0-16.0); MEAN CORPUSCULAR VOLUME 103 FL (80-99); PLATELET COUNT 93 K/UL (150-450); RED BLOOD COUNT 2.34 M/UL (4.20-5.40); RED CELL DISTRIBUTION WIDTH 17.1 % (11.6-14.8); WHITE BLOOD COUNT 8.8 K/UL (4.8-10.8)
--- NOTE | 2020-08-08 06:00 | NUR ---
NURSE NOTES: Blood sugar 70, , orange juice was given through [facility]
[2020-08-08 06:07] LABS: ALANINE AMINOTRANSFERASE 13 U/L (12-78); ALBUMIN 1.8 G/DL (3.4-5.0); ALBUMIN/GLOBULIN RATIO 0.4 (1.0-2.7); ALKALINE PHOSPHATASE 232 U/L (46-116); ANION GAP 25 mmol/L (5-15); ASPARTATE AMINO TRANSFERASE 82 U/L (15-37); BILIRUBIN,TOTAL 3.4 MG/DL (0.2-1.0); BLOOD UREA NITROGEN 114 mg/dL (7-18); CALCIUM 10.3 MG/DL (8.5-10.1); CARBON DIOXIDE 19 MMOL/L (21-32); CHLORIDE 95 MMOL/L (98-107); PHOSPHORUS 7.9 MG/DL (2.5-4.9); POTASSIUM 4.7 MMOL/L (3.5-5.1); SODIUM 139 MMOL/L (136-145)
--- NOTE | 2020-08-08 06:15 | NUR ---
NURSE NOTES: Fdg on hold due to supine position low bp.
--- NOTE | 2020-08-08 06:45 | Hematology/Onc Progress Note ---
Assessment/Plan Assessment/Plan Assessment/Plan 1. Pancytopenia with hx anemia due to underlying chronic disease. Have reviewed prior workup, ferritin is >1000, covid19++++ --> Continue to closely monitor. --> Transfuse if hgb <7 --> ferritin is >1000 --> give epogen, has been started 3x a week --> as per renal --> monitor for gi bleed, gi consulted --> hgb trend 7.8-->9.3->8.9->>11-->9.5->8.9->8->8.2-->7.6-->6.8->10->8-->8.5->8.6 --> plt 42-->50-->65-->104-->109-->176-->81->92->93 --> ABX zosyn --> smear has been reviewed --> hep and hiv neg -> prbc 08/02 2. LEUKOCYTOSIS now, prior was Leukopenia likely reactive process v infection covid19++++ --> hepatitis and hiv prior negative --> neutropenic precautions if ANC <1500 --> trending stable --> imaging reviewed and no hsm / cirrhosis noted --> wbc 2.7-->3.6->>>2->5-->8-->17->12-->11-->24 --> increase in wbc due to steriods --> ANC goal >1500 3. End-stage renal disease, on hemodialysis three times a week. --> renal consulted --> continue hd 4. History of coronary artery disease. --> cards reviewed --> diuresis prn 5. History of anemia due to low B12, low iron --> b12 is currently within normal limits --> reobtain q6mo 6. Dizziness and unsteady gait 7. Covid 19 --> rx per id 8. DVt ppsx with SCDs Greatly appreciate consultation and Inocencio RN Subjective HEENT: Denies: no symptoms, eye pain, blurred vision, tearing, double vision, ear pain, ear discharge, nose pain, nose congestion, throat pain, throat swelling, mouth pain, mouth swelling, other Cardiovascular: Denies: no symptoms, chest pain, edema, irregular heart rate, lightheadedness, palpitations, syncope, other Respiratory: Denies: no symptoms, cough, shortness of breath, SOB with excertion, SOB at rest, sputum, wheezing, other Gastrointestinal/Abdominal: Denies: no symptoms, abdomen distended, abdominal pain, black stools, tarry stools, blood in stool, constipated, diarrhea, difficulty swallowing, nausea, poor appetite, poor fluid intake, rectal bleeding, vomiting, other Allergies: Coded Allergies: No Known Allergies (Unverified , 05/12/17) All Systems: reviewed and negative except above Subjective 07/19 meds noted, s/p hd, bp has improved, no bleeding, labs reviewed 07/20 labs are noted, no bleeding, meds reviewed, no major changes, hgb 9.5 07/22 remains in the icu, no bleeding, meds reviewed, on nc 07/23 labs noted, no bleeding, in icu, hgb 8.7, plt 90 07/24 is intubated, hgb 11, no bleeding, plt are better, meds reviewed 07/25 remains on zosyn, labs are noted, no bleeding, icu, meds ntoed, s/p hd yesterday with renal 07/26 seen at bedside with Justo Toro, doing HD today, is in the icu, have ordered epo 07/27 black tarry stools overnight, no bleeding, labs reviewed, plt better 07/29 restraints, is agitated, no bleeding, hgb 8.2, improved s/p transfusion 07/30 restraints, is for rectal tube insertion today for diarrhea 07/31 hd was done yesterday, labs reviewed, meds noted, for duplex today then scds 08/01 hd as needed, did have fever overnight is on zosyn 08/02 labs noted, pending cbc for the am, 1 unit prbc is ordered, inocencio Cazares, bryant lower 08/03 remains in icu, restraints, abx, wbc 24, hgb 10 12: lethargic not following commands, no distress 08/05: labs reviewed hgb 9.1 remains lethargic. 08/06 on levo, epio, zosyn, in icu, holding off ct, remains lethargic, inocencio Kemp 08/07 on vent, pressors, meds reviewed, lethargic, icu, epo 08/08 icu, on vent, labs noted, lethargic, is on levo gtt Objective Objective Current Medications Medications (Trade) Dose Ordered Sig/Toya Route PRN Reason Start Time Stop Time Status Last Admin Dose Admin Acetaminophen (Tylenol) 650 mg EVERY 6 HOURS PRN NG Mild Pain (Pain Scale 1-3) 07/29/20 09:05 08/28/20 09:04 08/07/20 12:18 Acetaminophen (Tylenol) 650 mg EVERY 6 HOURS PRN NG Temp >100.5 07/29/20 09:15 08/28/20 09:14 08/02/20 08:17 Chlorhexidine Gluconate (Yessi-Hex 2%) 1 applic DAILY@1999 TOPIC 07/21/20 20:00 10/19/20 19:59 08/07/20 20:28 Clonidine HCl (Catapres Tab) 0.1 mg Q4H PRN NG bp over 165 syst 07/21/20 12:00 10/14/20 22:44 Dextrose (Dextrose 50%) 25 ml Q30M PRN IV Hypoglycemia 07/22/20 08:00 10/20/20 07:59 08/04/20 18:19 Dextrose (Dextrose 50%) 50 ml Q30M PRN IV Hypoglycemia 07/22/20 08:00 10/20/20 07:59 Epoetin Panchito (Epoetin Panchito(ESRD on dialysis)) 2,000 unit SUBQ 08/03/20 21:00 11/01/20 20:59 08/06/20 20:45 Epoetin Panchito (Epoetin Panchito(ESRD on dialysis)) 8,000 unit THU-THU-THU SUBQ 08/03/20 21:00 11/01/20 20:59 08/06/20 20:44 Haloperidol Lactate (Haldol) 5 mg Q6H PRN IM Agitation 07/17/20 17:30 08/31/20 17:29 08/01/20 12:13 Insulin Aspart (NovoLOG) Q6HR SUBQ 07/22/20 08:15 10/20/20 11:29 08/08/20 00:20 Insulin Detemir (Levemir) 12 units Q12HR SUBQ 07/24/20 09:00 10/20/20 09:59 08/07/20 20:43 Loperamide HCl (Imodium) 2 mg Q6H PRN NG Diarrhea 07/29/20 15:45 08/28/20 15:44 Midodrine (Pro-Amatine) 15 mg Q8HR NG 08/06/20 22:00 11/01/20 16:29 08/08/20 05:34 Norepinephrine Bitartrate 250 ml @ 7.5 mls/hr Q24H IV 08/05/20 15:45 08/08/20 15:36 08/08/20 05:34 Pantoprazole (Protonix) 40 mg EVERY 12 HOURS IVP 07/21/20 21:00 08/20/20 20:59 08/07/20 20:42 Quetiapine Fumarate (SEROqueL) 50 mg Q12HR ORAL 08/05/20 09:00 09/13/20 20:59 08/07/20 09:28 Vitamin D (Vitamin D) 5,000 unit DAILY ORAL 07/29/20 09:00 08/28/20 08:59 08/07/20 09:28 Last 24 Hour Vital Signs Date Time Temp Pulse Resp B/P (MAP) Pulse Ox O2 Delivery O2 Flow Rate FiO2 08/08/20 06:00 159 20 111/46 (67) 08/08/20 05:34 70/38 08/08/20 05:30 83 21 70/38 (49) 93 08/08/20 05:00 90 24 68/41 (50) 93 08/08/20 04:30 135 31 89/39 (56) 95 08/08/20 04:00 100 08/08/20 04:00 108 08/08/20 04:00 100.5 132 24 109/55 (73) 95 08/08/20 04:00 Mechanical Ventilator 08/08/20 03:30 122 25 105/42 (63) 95 08/08/20 03:17 125 24 80 08/08/20 03:00 124 23 108/48 (68) 95 08/08/20 02:30 132 20 114/48 (70) 95 08/08/20 02:00 135 20 84/45 (58) 96 08/08/20 01:30 152 21 123/64 (83) 96 08/08/20 01:00 130 20 120/50 (73) 96 08/08/20 00:30 118 22 104/55 (71) 95 08/08/20 00:00 110 08/08/20 00:00 98.2 122 19 123/44 (70) 96 08/08/20 00:00 Mechanical Ventilator 08/08/20 00:00 80 08/07/20 23:45 117 20 122/53 (76) 96 08/07/20 23:30 112 19 121/47 (71) 96 08/07/20 23:15 116 21 115/45 (68) 98 08/07/20 23:12 122 20 80 08/07/20 23:00 100 21 115/44 (67) 96 08/07/20 22:45 107 18 117/40 (65) 96 08/07/20 22:30 113 21 133/55 (81) 96 08/07/20 22:00 118 23 143/52 (82) 96 08/07/20 21:30 115 21 140/42 (74) 97 08/07/20 21:15 97 20 127/48 (74) 97 08/07/20 21:05 77/36 08/07/20 21:00 90 23 110/52 (71) 96 08/07/20 20:30 100 18 99/38 (58) 97 08/07/20 20:00 Mechanical Ventilator 08/07/20 20:00 80 08/07/20 20:00 99.0 93 23 81/39 (53) 95 08/07/20 20:00 113 08/07/20 19:09 118 26 80 08/07/20 19:00 120 18 92/50 (64) 95 08/07/20 18:00 148 19 107/38 (61) 96 08/07/20 17:00 123 24 127/96 (106) 97 08/07/20 16:00 Mechanical Ventilator 08/07/20 16:00 99.0 100 19 107/46 (66) 98 08/07/20 16:00 80 08/07/20 16:00 118 08/07/20 15:18 107 21 80 08/07/20 15:00 94 18 121/43 (69) 96 08/07/20 14:00 100 21 119/42 (67) 97 08/07/20 13:00 107 20 109/43 (65) 95 08/07/20 12:48 100.3 08/07/20 12:05 80 08/07/20 12:00 80 08/07/20 12:00 Mechanical Ventilator 08/07/20 12:00 100.6 112 22 108/39 (62) 96 08/07/20 12:00 99 08/07/20 11:19 100 08/07/20 11:18 100 08/07/20 11:00 123 33 106/40 (62) 93 08/07/20 10:30 122 22 70 08/07/20 10:00 105 34 113/39 (63) 94 08/07/20 09:30 90 21 103/39 (60) 95 08/07/20 09:00 91 18 97/40 (59) 94 08/07/20 08:30 104 20 120/38 (65) 91 08/07/20 08:00 70 08/07/20 08:00 99.0 102 24 145/45 (78) 93 08/07/20 08:00 Mechanical Ventilator 08/07/20 07:49 100 08/07/20 07:30 106 22 149/43 (78) 95 08/07/20 07:00 106 23 149/50 (83) 95 08/07/20 07:00 100 22 70 08/07/20 06:30 105 26 134/43 (73) 98 08/07/20 06:00 93 22 112/45 (67) 96 08/07/20 05:30 94 23 105/42 (63) 95 08/07/20 05:00 114 25 128/40 (69) 95 08/07/20 04:30 131 27 136/68 (90) 96 08/07/20 04:00 99.0 124 34 119/44 (69) 96 08/07/20 04:00 70 08/07/20 04:00 Mechanical Ventilator 08/07/20 04:00 118 08/07/20 03:30 97 22 99/35 (56) 96 08/07/20 03:00 98 8 108/40 (62) 97 08/07/20 02:51 92 20 70 08/07/20 02:30 103 22 130/45 (73) 99 08/07/20 02:00 81 17 104/36 (58) 97 08/07/20 01:30 82 18 96/31 (52) 96 08/07/20 01:23 88 19 97/39 (58) 96 08/07/20 01:00 78 16 96/34 (54) 95 08/07/20 01:00 78 16 96/34 (54) 95 08/07/20 00:30 90 17 114/46 (68) 98 08/07/20 00:00 88 08/07/20 00:00 Mechanical Ventilator 08/07/20 00:00 100.4 100 20 124/47 (72) 98 08/06/20 23:45 98 20 131/38 (69) 98 08/06/20 23:30 95 22 109/43 (65) 97 08/06/20 23:00 88 20 110/40 (63) 95 08/06/20 22:54 88 19 70 08/06/20 22:30 121 22 108/43 (64) 95 08/06/20 22:15 139 22 118/36 (63) 96 08/06/20 22:00 137 24 113/49 (70) 96 08/06/20 21:30 89/45 08/06/20 21:30 93 20 89/37 (54) 96 08/06/20 21:00 87 15 109/27 (54) 98 08/06/20 20:00 98.7 104 23 138/53 (81) 98 08/06/20 20:00 Mechanical Ventilator 08/06/20 20:00 70 08/06/20 19:45 103 22 70 08/06/20 19:45 110 08/06/20 19:00 104 20 148/46 (80) 98 08/06/20 18:00 102 21 141/56 (84) 99 08/06/20 17:00 96 19 96/38 (57) 99 08/06/20 17:00 106 23 112/45 (67) 98 08/06/20 16:52 96 08/06/20 16:00 Mechanical Ventilator 08/06/20 16:00 108 08/06/20 16:00 98.6 106 21 129/47 (74) 98 08/06/20 16:00 70 08/06/20 15:51 103 18 70 08/06/20 15:00 94 17 96/38 (57) 98 08/06/20 14:00 132 22 133/57 (82) 98 08/06/20 13:00 90 17 96/36 (56) 99 08/06/20 13:00 90 17 96/36 (56) 99 08/06/20 12:00 70 08/06/20 12:00 92 17 121/41 (67) 99 08/06/20 12:00 70 08/06/20 12:00 88 08/06/20 12:00 Mechanical Ventilator 08/06/20 12:00 98.9 92 17 121/41 (67) 99 08/06/20 12:00 Mechanical Ventilator 08/06/20 11:44 118/46 08/06/20 11:38 98 17 70 08/06/20 11:00 99 16 122/52 (75) 100 08/06/20 11:00 99 16 122/52 (75) 100 08/06/20 10:00 133 20 121/55 (77) 100 08/06/20 10:00 133 20 121/55 (77) 100 08/06/20 09:00 95 16 104/44 (64) 99 08/06/20 09:00 95 16 104/44 (64) 99 08/06/20 08:00 70 08/06/20 08:00 122 08/06/20 08:00 Mechanical Ventilator 08/06/20 08:00 Mechanical Ventilator 08/06/20 08:00 105 16 143/47 (79) 99 08/06/20 08:00 98.6 105 16 143/47 (79) 99 08/06/20 08:00 70 08/06/20 07:15 102 16 70 08/06/20 07:00 99.5 112 20 125/60 (81) 100 Intake and Output 08/07/20 08/08/20 19:00 07:00 Intake Total 570.0 ml 600 ml Output Total 250 ml 120 ml Balance 320.0 ml 480 ml Free Water 90 ml IV Total 90.0 ml Tube Feeding 480 ml 510 ml Stool Total 250 ml 120 ml Labs Test 08/05/20 11:20 08/05/20 13:39 08/05/20 17:39 08/05/20 20:33 POC Whole Blood Glucose 152 MG/DL (74-106) 182 MG/DL (74-106) 158 MG/DL (74-106) 94 MG/DL (74-106) Test 08/05/20 23:53 08/06/20 05:06 1/4/21 06:28 08/06/20 09:17 POC Whole Blood Glucose 107 MG/DL (74-106) 120 MG/DL (74-106) 135 MG/DL (74-106) White Blood Count 8.9 K/UL (4.8-10.8) Red Blood Count 2.44 M/UL (4.20-5.40) Hemoglobin 8.5 G/DL (12.0-16.0) Hematocrit 25.3 % (37.0-47.0) Mean Corpuscular Volume 104 FL (80-99) Mean Corpuscular Hemoglobin 34.8 PG (27.0-31.0) Mean Corpuscular Hemoglobin Concent 33.6 G/DL (32.0-36.0) Red Cell Distribution Width 16.6 % (11.6-14.8) Platelet Count 81 K/UL (150-450) Mean Platelet Volume 9.1 FL (6.5-10.1) Neutrophils (%) (Auto) % (45.0-75.0) Lymphocytes (%) (Auto) % (20.0-45.0) Monocytes (%) (Auto) % (1.0-10.0) Eosinophils (%) (Auto) % (0.0-3.0) Basophils (%) (Auto) % (0.0-2.0) Differential Total Cells Counted 100 Neutrophils % (Manual) 90 % (45-75) Lymphocytes % (Manual) 2 % (20-45) Monocytes % (Manual) 1 % (1-10) Eosinophils % (Manual) 0 % (0-3) Basophils % (Manual) 0 % (0-2) Band Neutrophils 7 % (0-8) Nucleated Red Blood Cells 1 /100 WBC Platelet Estimate Decreased Platelet Morphology Normal Hypochromasia 1+ Anisocytosis 1+ Macrocytosis 1+ Sodium Level 140 MMOL/L (136-145) Potassium Level 4.0 MMOL/L (3.5-5.1) Chloride Level 98 MMOL/L (98-107) Carbon Dioxide Level 31 MMOL/L (21-32) Anion Gap 11 mmol/L (5-15) Blood Urea Nitrogen 63 mg/dL (7-18) Creatinine 3.3 MG/DL (0.55-1.30) Estimat Glomerular Filtration Rate 13.8 mL/min (>60) Glucose Level 115 MG/DL (74-106) Uric Acid 4.5 MG/DL (2.6-7.2) Calcium Level 9.2 MG/DL (8.5-10.1) Phosphorus Level 4.6 MG/DL (2.5-4.9) Magnesium Level 1.8 MG/DL (1.8-2.4) Total Bilirubin 2.5 MG/DL (0.2-1.0) Direct Bilirubin 2.0 MG/DL (0.0-0.3) Aspartate Amino Transf (AST/SGOT) 70 U/L (15-37) Alanine Aminotransferase (ALT/SGPT) 23 U/L (12-78) Alkaline Phosphatase 205 U/L (46-116) Troponin I 0.568 ng/mL (0.000-0.056) C-Reactive Protein, Quantitative 312.7 mg/L (<5) Pro-B-Type Natriuretic Peptide > 29382 pg/mL (0-125) Total Protein 6.7 G/DL (6.4-8.2) Albumin 2.3 G/DL (3.4-5.0) Globulin 4.4 g/dL Albumin/Globulin Ratio 0.5 (1.0-2.7) Test 08/06/20 11:36 08/06/20 17:00 08/07/20 00:21 08/07/20 05:25 POC Whole Blood Glucose 161 MG/DL (74-106) 216 MG/DL (74-106) 204 MG/DL (74-106) White Blood Count 7.8 K/UL (4.8-10.8) Red Blood Count 2.44 M/UL (4.20-5.40) Hemoglobin 8.5 G/DL (12.0-16.0) Hematocrit 24.5 % (37.0-47.0) Mean Corpuscular Volume 100 FL (80-99) Mean Corpuscular Hemoglobin 34.8 PG (27.0-31.0) Mean Corpuscular Hemoglobin Concent 34.8 G/DL (32.0-36.0) Red Cell Distribution Width 16.9 % (11.6-14.8) Platelet Count 92 K/UL (150-450) Mean Platelet Volume 9.3 FL (6.5-10.1) Neutrophils (%) (Auto) % (45.0-75.0) Lymphocytes (%) (Auto) % (20.0-45.0) Monocytes (%) (Auto) % (1.0-10.0) Eosinophils (%) (Auto) % (0.0-3.0) Basophils (%) (Auto) % (0.0-2.0) Differential Total Cells Counted 100 Neutrophils % (Manual) 94 % (45-75) Lymphocytes % (Manual) 3 % (20-45) Monocytes % (Manual) 1 % (1-10) Eosinophils % (Manual) 0 % (0-3) Basophils % (Manual) 0 % (0-2) Band Neutrophils 2 % (0-8) Nucleated Red Blood Cells 2 /100 WBC Platelet Estimate Decreased Platelet Morphology Normal Hypochromasia 1+ Anisocytosis 1+ Macrocytosis 1+ Sodium Level 138 MMOL/L (136-145) Potassium Level 4.1 MMOL/L (3.5-5.1) Chloride Level 95 MMOL/L (98-107) Carbon Dioxide Level 27 MMOL/L (21-32) Blood Urea Nitrogen 89 mg/dL (7-18) Creatinine 4.0 MG/DL (0.55-1.30) Estimat Glomerular Filtration Rate 11.1 mL/min (>60) Glucose Level 136 MG/DL (74-106) Calcium Level 9.9 MG/DL (8.5-10.1) Phosphorus Level 5.4 MG/DL (2.5-4.9) Magnesium Level 1.8 MG/DL (1.8-2.4) Total Bilirubin 2.9 MG/DL (0.2-1.0) Direct Bilirubin 2.4 MG/DL (0.0-0.3) Aspartate Amino Transf (AST/SGOT) 55 U/L (15-37) Alanine Aminotransferase (ALT/SGPT) 17 U/L (12-78) Alkaline Phosphatase 197 U/L (46-116) C-Reactive Protein, Quantitative 316.6 mg/L (<5) Pro-B-Type Natriuretic Peptide > 44062 pg/mL (0-125) Total Protein 6.3 G/DL (6.4-8.2) Albumin 1.9 G/DL (3.4-5.0) Globulin 4.4 g/dL Albumin/Globulin Ratio 0.4 (1.0-2.7) Digoxin Level 1.0 NG/ML (0.9-2.0) Test 08/07/20 05:34 08/07/20 09:07 08/07/20 11:00 08/07/20 13:06 POC Whole Blood Glucose 129 MG/DL (74-106) 145 MG/DL (74-106) 150 MG/DL (74-106) Arterial Blood pH 7.246 (7.350-7.450) Arterial Blood Partial Pressure CO2 62.3 mmHg (35.0-45.0) Arterial Blood Partial Pressure O2 65.5 mmHg (75.0-100.0) Arterial Blood HCO3 26.5 mmol/L (22.0-26.0) Arterial Blood Oxygen Saturation 88.0 % (95-100) Arterial Blood Base Excess -1.5 (-2-2) Faheem Test Positive Test 08/07/20 17:02 08/07/20 20:34 08/08/20 00:11 08/08/20 03:45 POC Whole Blood Glucose 184 MG/DL (74-106) 125 MG/DL (74-106) 170 MG/DL (74-106) White Blood Count 8.8 K/UL (4.8-10.8) Red Blood Count 2.34 M/UL (4.20-5.40) Hemoglobin 8.6 G/DL (12.0-16.0) Hematocrit 24.0 % (37.0-47.0) Mean Corpuscular Volume 103 FL (80-99) Mean Corpuscular Hemoglobin 37.0 PG (27.0-31.0) Mean Corpuscular Hemoglobin Concent 36.1 G/DL (32.0-36.0) Red Cell Distribution Width 17.1 % (11.6-14.8) Platelet Count 93 K/UL (150-450) Mean Platelet Volume 10.3 FL (6.5-10.1) Neutrophils (%) (Auto) % (45.0-75.0) Lymphocytes (%) (Auto) % (20.0-45.0) Monocytes (%) (Auto) % (1.0-10.0) Eosinophils (%) (Auto) % (0.0-3.0) Basophils (%) (Auto) % (0.0-2.0) Sodium Level 139 MMOL/L (136-145) Potassium Level 4.7 MMOL/L (3.5-5.1) Chloride Level 95 MMOL/L (98-107) Carbon Dioxide Level 19 MMOL/L (21-32) Anion Gap 25 mmol/L (5-15) Blood Urea Nitrogen 114 mg/dL (7-18) Creatinine 5.0 MG/DL (0.55-1.30) Estimat Glomerular Filtration Rate 8.5 mL/min (>60) Glucose Level 103 MG/DL (74-106) Calcium Level 10.3 MG/DL (8.5-10.1) Phosphorus Level 7.9 MG/DL (2.5-4.9) Magnesium Level 2.1 MG/DL (1.8-2.4) Total Bilirubin 3.4 MG/DL (0.2-1.0) Aspartate Amino Transf (AST/SGOT) 82 U/L (15-37) Alanine Aminotransferase (ALT/SGPT) 13 U/L (12-78) Alkaline Phosphatase 232 U/L (46-116) Pro-B-Type Natriuretic Peptide > 46878 pg/mL (0-125) Total Protein 6.4 G/DL (6.4-8.2) Albumin 1.8 G/DL (3.4-5.0) Globulin 4.6 g/dL Albumin/Globulin Ratio 0.4 (1.0-2.7) Test 08/08/20 05:16 08/08/20 05:19 POC Whole Blood Glucose 73 MG/DL (74-106) Height (Feet): 5 Height (Inches): 4.00 Weight (Pounds): 180 Objective Physical Exam General Appearance: alert, obese, Chronically Ill Neck: full range of motion Respiratory: wheezing Cardiovascular: edema Gastrointestinal: normal inspection, soft Neurologic: alert, compilation clerk III-XII nml as tested Psychiatric: normal inspection, judgement/insight normal Skin: other Carl Daniels MD Aug 08, 2020 06:45
[2020-08-08 06:46] LABS: BILIRUBIN,DIRECT 2.9 MG/DL (0.0-0.3)
--- NOTE | 2020-08-08 07:22 | NUR ---
CASE MANAGEMENT:REVIEW 08/08/20 SI: OTIS PNA. ACUTE RESPIRATORY FAILURE ~ INTUBATED ESRD ON HD 100.5 159 20 70/38-->06/4693% ON VENT SUPPORT W/100% FIO2 H/H-8.6/24.0 PLT-93 BUN+114 CR+5.0 IS: MIDODRINE 15MG NG Q8HRS LEVOPHED GTT SEROQUEL NG Q12 EPOETIN SQ MWF IV PROTONIX Q12 : ICU STATUS DCP: FROM HOME
--- NOTE | 2020-08-08 07:43 | NUR ---
NURSE HAND-OFF REPORT: Latest Vital Signs: Temperature 100.5 , Pulse 159 , B/P 111 /46 , Respiratory Rate 20 , O2 SAT 93 , Nasal Cannula, O2 Flow Rate 3.0 . Vital Sign Comment: EKG Rhythm: Atrial Fibrillation Rhythm change?: N Notified?: Roxanne Gatica MD Response: Latest Elizabeth Fall Score: 50 Fall Risk: High Risk Safety Measures: Call light Within Reach, Bed Alarm Zone 1, Side Rails Side Rails x3, Bed position Low and Locked. Fall Precautions: Yellow Socks Yellow Gown Door Sign Patient Fall Education Report given to zelda LITTLE.
--- NOTE | 2020-08-08 07:44 | NUR ---
NURSE NOTES: Received report from Nini Ernandez RN. The patient is resting on the bed but has mild labored breathing at this time. The patient is AOx0-1, opening eyes with tactile stimuli but not following command. Afib w/ HR of 100-110's on the radiographer cardiac catheterization. The patient is orally intubated on following setting and oxygen saturation is 70%: ETT 7.5 Lip line @ 24, AC mode rate of 16, TV 500 FiO2 100% PEEP 10. The patient has OGT, tube feeding on hold. The patient has rectal tube that is intact and patent and draining by gravity. The patient is anuric. The patient has SHAMEKA AV shunt that is intact. The patient has R femoral TLC that is intact and patent and running Levophed 20mcg/min due to hypotension. The patient's bed in the lowest position, call light in reach, and fall and aspiration precaution reinforced. IV site intact and patent. Will follow up the order and lab. Airborne isolation observed. Will continue plan of care.
[2020-08-08] MEDS: Vitamin D 1000 units Tab ORAL SCH (09:00)
[2020-08-08] MEDS: Levemir Flexpen SUBQ SCH (09:00)
[2020-08-08] MEDS: Pantoprazole Inj IVP SCH (09:00)
--- NOTE | 2020-08-08 09:50 | NUR ---
NURSE NOTES: Dr. Falk at bedside. Patient is on levophed drip for low blood pressure. And Dr. Falk said to administer Aredia IVPB x1 before dialysis.
--- NOTE | 2020-08-08 10:13 | Nephrology Progress Note ---
Assessment/Plan Problem List: (1) Hypertensive kidney disease (2) ESRD (end stage renal disease) (3) Hyperkalemia (4) Suspected 2019 novel coronavirus infection (5) Acute respiratory failure Assessment 70-year-old female with end-stage renal disease Presented with volume overload and hyperkalemia Suspected COVID-19 virus infection Hypertensive emergency Diabetes mellitus CHF Plan August 08: Patient on higher dose of pressors. Due for dialysis today. Labs reviewed. Serum level is high. Pamidronate 60 mg IV given. Discussed with chelsey Bojorquez. August 07: Last dialysis August 05. Patient on 80% FiO2. Pulmonary status unchanged. Patient remains full code. Will order dialysis tomorrow. Labs and medication list reviewed. Discussed with SIDNEY Bojorquez. August 06: Patient was dialyzed yesterday. Labs reviewed. Status quo. Remains intubated on ventilator. Remains full code. The dialysis as needed. August 05: Labs reviewed. Due for dialysis today. Will aim to keep the blood pressure over 95 systolic. Medication list reviewed. Albumin bolus given August 04: Status quo. Will attempt dialysis tomorrow. Blood pressure borderline. Continue per consultants. August 03: Patient remains intubated on ventilator. Transfused yesterday. Leukocytosis worsened. Blood pressure 90 systolic. Will start on midodrine. Continue per consultants. Check lab tomorrow. August 02: Discussed with RN. Patient due for transfusion due to rectal bleed . No dialysis scheduled today. Optimize cardiac and pulmonary status. Dialysis as needed. August 01: Discussed with RN. Patient had dry ultrafiltration yesterday. Patient will have dialysis and ultrafiltration today. Labs reviewed. Continue per consultants. July 31: Discussed with RN. Discussed with wiping cloth cutter. Chest x-ray still looks wet. Despite of having been dialyzed yesterday we arrange for dialysis and ultrafiltration today and probably tomorrow. Labs reviewed. Per orders. July 30: Patient on dialysis now. Tolerating well. Labs and medications reviewed. Continue per consultants. Hemoglobin mid sevens. On 10,000 units of Epogen. Transfusion if needed. July 29: Dialyzed yesterday. Due for dialysis tomorrow. Labs reviewed. Iron panel ordered. Epogen dose increased. Continue per consultants. Vitamin D level pending July 28: Patient is about to get started on dialysis. Labs reviewed. Blood pressure 90 to 100 systolic. Continue per consultants. July 27: Patient dialyzed July 26. Labs reviewed. Status quo. Dialysis again in a.m. July 26: Patient was dialyzed this morning. Labs reviewed. Remains intubated on ventilator. Full code. Tachycardic. Continue per consultants. Per orders. July 25: Patient was dialyzed yesterday. 2 L ultrafiltrate it. Discussed with head field hockey coach today. Attempts at weaning is being tried. Patient will be dialyzed again tomorrow. In view of ejection fraction of 40 to 45% and low blood pressure will adjust the blood pressure medication dosages and give 0.25 mg digoxin IV once. Continue to monitor renal parameters. July 24: Due for dialysis today. Labs reviewed. Low phosphorus replaced. Continue pulmonary support and ID management. Medication list reviewed. BP medication adjusted. July 23: Dialyzed yesterday. Labs reviewed. ABG noted. Patient hypoxic. Vent setting adjusted by head field hockey coach. Continue current care. Dialysis tomorrow. July 22: Patient on ventilator requiring positive end expiratory pressure. Labs reviewed. Blood sugar elevated. Levemir insulin ordered. Dialysis today. Continue per consultants. July 21: Patient now in ICU. Intubated on ventilator. Was dialyzed. Blood pressure well maintained. Has NG tube. Will start medication through NG tube and start feeding. Continue per consultants. Hemodialysis as needed. July 20: Patient seen and examined. Discussed with RN. Remains encephalopathic. Poor ABG results. Patient at high risk at this stage. We will transfer patients to ICU for possible airway support. Patient due for dialysis today. Hyperkalemia probably secondary to acidosis. Will arrange for NG tube insertion and give medication through NG tube. July 19: Mental status appears slightly improved. Was dialyzed 2 days in a row. Blood pressure medication adjusted. Next dialysis tomorrow. Continue per consultants. July 18: Patient encephalopathic, was dialyzed yesterday and had 3 L removed. Will order dialysis again today. Continue per ID. Blood pressure medication adjusted. July 17: Stat hemodialysis ordered. Kayexalate for high potassium. Pulmonary support with oxygen or BiPAP as needed Blood pressure support with proper parameters Per orders Subjective ROS Limited/Unobtainable: Yes Objective Objective Last 24 Hour Vital Signs Date Time Temp Pulse Resp B/P (MAP) Pulse Ox O2 Delivery O2 Flow Rate FiO2 08/08/20 09:30 100 105/40 (61) 08/08/20 09:15 104 18 104/40 (61) 99 08/08/20 09:00 106 18 107/38 (61) 100 08/08/20 08:45 97 20 103/40 (61) 100 08/08/20 08:30 117 20 100/43 (62) 100 08/08/20 08:28 127/40 08/08/20 08:15 101 20 118/45 (69) 100 08/08/20 08:03 101 08/08/20 08:00 70 08/08/20 08:00 100.3 102 20 127/40 (69) 100 08/08/20 08:00 Mechanical Ventilator 08/08/20 07:30 100 20 116/37 (63) 100 08/08/20 07:00 97 20 115/41 (65) 100 08/08/20 06:00 159 20 111/46 (67) 08/08/20 05:34 70/38 08/08/20 05:30 83 21 70/38 (49) 93 08/08/20 05:00 90 24 68/41 (50) 93 08/08/20 04:30 135 31 89/39 (56) 95 08/08/20 04:00 100 08/08/20 04:00 108 08/08/20 04:00 100.5 132 24 109/55 (73) 95 08/08/20 04:00 Mechanical Ventilator 08/08/20 03:30 122 25 105/42 (63) 95 08/08/20 03:17 125 24 80 08/08/20 03:00 124 23 108/48 (68) 95 08/08/20 02:30 132 20 114/48 (70) 95 08/08/20 02:00 135 20 84/45 (58) 96 08/08/20 01:30 152 21 123/64 (83) 96 08/08/20 01:00 130 20 120/50 (73) 96 08/08/20 00:30 118 22 104/55 (71) 95 08/08/20 00:00 110 08/08/20 00:00 98.2 122 19 123/44 (70) 96 08/08/20 00:00 Mechanical Ventilator 08/08/20 00:00 80 08/07/20 23:45 117 20 122/53 (76) 96 08/07/20 23:30 112 19 121/47 (71) 96 08/07/20 23:15 116 21 115/45 (68) 98 08/07/20 23:12 122 20 80 08/07/20 23:00 100 21 115/44 (67) 96 08/07/20 22:45 107 18 117/40 (65) 96 08/07/20 22:30 113 21 133/55 (81) 96 08/07/20 22:00 118 23 143/52 (82) 96 08/07/20 21:30 115 21 140/42 (74) 97 08/07/20 21:15 97 20 127/48 (74) 97 08/07/20 21:05 77/36 08/07/20 21:00 90 23 110/52 (71) 96 08/07/20 20:30 100 18 99/38 (58) 97 08/07/20 20:00 Mechanical Ventilator 08/07/20 20:00 80 08/07/20 20:00 99.0 93 23 81/39 (53) 95 08/07/20 20:00 113 08/07/20 19:09 118 26 80 08/07/20 19:00 120 18 92/50 (64) 95 08/07/20 18:00 148 19 107/38 (61) 96 08/07/20 17:00 123 24 127/96 (106) 97 08/07/20 16:00 Mechanical Ventilator 08/07/20 16:00 99.0 100 19 107/46 (66) 98 08/07/20 16:00 80 08/07/20 16:00 118 08/07/20 15:18 107 21 80 08/07/20 15:00 94 18 121/43 (69) 96 08/07/20 14:00 100 21 119/42 (67) 97 08/07/20 13:00 107 20 109/43 (65) 95 08/07/20 12:48 100.3 08/07/20 12:05 80 08/07/20 12:00 80 08/07/20 12:00 Mechanical Ventilator 08/07/20 12:00 100.6 112 22 108/39 (62) 96 08/07/20 12:00 99 08/07/20 11:19 100 08/07/20 11:18 100 08/07/20 11:00 123 33 106/40 (62) 93 08/07/20 10:30 122 22 70 Intake and Output 08/07/20 08/08/20 19:00 07:00 Intake Total 570.0 ml 1132.50 ml Output Total 250 ml 50 ml Balance 320.0 ml 1082.50 ml Free Water 90 ml IV Total 90.0 ml 532.50 ml Tube Feeding 480 ml 510 ml Stool Total 250 ml 50 ml Laboratory Tests 08/07/20 11:00: Arterial Blood pH 7.246*L, Arterial Blood Partial Pressure CO2 62.3*H, Arterial Blood Partial Pressure O2 65.5L, Arterial Blood HCO3 26.5H, Arterial Blood Oxygen Saturation 88.0*L, Arterial Blood Base Excess -1.5, Faheem Test Positive 08/07/20 13:06: POC Whole Blood Glucose 150H 08/07/20 17:02: POC Whole Blood Glucose 184H 08/07/20 20:34: POC Whole Blood Glucose 125H 08/08/20 00:11: POC Whole Blood Glucose 170H 08/08/20 03:45: White Blood Count 8.8, Red Blood Count 2.34L, Hemoglobin 8.6L, Hematocrit 24.0L, Mean Corpuscular Volume 103H, Mean Corpuscular Hemoglobin 37.0H, Mean Corpuscular Hemoglobin Concent 36.1H, Red Cell Distribution Width 17.1H, Platelet Count 93L, Mean Platelet Volume 10.3H, Neutrophils (%) (Auto) , Lymphocytes (%) (Auto) , Monocytes (%) (Auto) , Eosinophils (%) (Auto) , Basophils (%) (Auto) , Differential Total Cells Counted 100, Neutrophils % (Manual) 83H, Lymphocytes % (Manual) 6L, Monocytes % (Manual) 5, Eosinophils % (Manual) 0, Basophils % (Manual) 0, Band Neutrophils 6, Nucleated Red Blood Cells 17, Platelet Estimate DecreasedL, Platelet Morphology Normal, Polychromasia 1+, Hypochromasia 1+, Anisocytosis 1+, Macrocytosis 1+, Sodium Level 139, Potassium Level 4.7, Chloride Level 95L, Carbon Dioxide Level 19L, Anion Gap 25H, Blood Urea Nitrogen 114H, Creatinine 5.0H, Estimat Glomerular Filtration Rate 8.5, Glucose Level 103, Calcium Level 10.3H, Phosphorus Level 7.9H, Magnesium Level 2.1, Total Bilirubin 3.4H, Direct Bilirubin 2.9H, Aspartate Amino Transf (AST/SGOT) 82H, Alanine Aminotransferase (ALT/SGPT) 13, Alkaline Phosphatase 232H, C-Reactive Protein, Quantitative [Pending], Pro-B-Type Natriuretic Peptide > 43219C, Total Protein 6.4, Albumin 1.8L, Globulin 4.6, Albumin/Globulin Ratio 0.4L 08/08/20 05:16: POC Whole Blood Glucose 73L 08/08/20 05:19: POC Whole Blood Glucose [Pending] 08/08/20 08:34: POC Whole Blood Glucose [Pending] 08/08/20 09:03: POC Whole Blood Glucose 109H Height (Feet): 5 Height (Inches): 4.00 Weight (Pounds): 180 General Appearance: other - Intubated on ventilator Cardiovascular: tachycardia Respiratory/Chest: decreased breath sounds Abdomen: distended Francis Falk MD Aug 08, 2020 10:13
[2020-08-08] MEDS ORDERED: Pamidronate Disodium Inj 60 MG in Sodium Chloride 550 ML IVPB SCH (11:00)
--- NOTE | 2020-08-08 11:55 | NUR ---
NURSE NOTES: Dr. Allen in the unit. Informed regarding latest ABG result. said to inform Dr. Falk regarding low ABG bicarb level of 8.9
[2020-08-08] MEDS ORDERED: Sodium Bicarbonate 50ml Carp IV SCH ×2 (12:00→12:10)
--- NOTE | 2020-08-08 12:31 | Nephrology Progress Note ---
Assessment/Plan Problem List: (1) Hypertensive kidney disease (2) ESRD (end stage renal disease) (3) Hyperkalemia (4) Suspected 2019 novel coronavirus infection (5) Acute respiratory failure Assessment 70-year-old female with end-stage renal disease Presented with volume overload and hyperkalemia Suspected COVID-19 virus infection Hypertensive emergency Diabetes mellitus CHF Plan August 08: 12:30 PM second visit. Blood pressure dropping further. ABG pH 6.8. 2 Amp of bicarb IV. Start phenylephrine as a second pressor. Hold dialysis today. Patient is doing poorly. Discussed with SIDNEY Bojorquez. Start stress dose of steroids August 08: Patient on higher dose of pressors. Due for dialysis today. Labs reviewed. Serum level is high. Pamidronate 60 mg IV given. Discussed with chelsey Bojorquez. August 07: Last dialysis August 05. Patient on 80% FiO2. Pulmonary status unchanged. Patient remains full code. Will order dialysis tomorrow. Labs and medication list reviewed. Discussed with SIDNEY Bojorquez. August 06: Patient was dialyzed yesterday. Labs reviewed. Status quo. Remains intubated on ventilator. Remains full code. The dialysis as needed. August 05: Labs reviewed. Due for dialysis today. Will aim to keep the blood pressure over 95 systolic. Medication list reviewed. Albumin bolus given August 04: Status quo. Will attempt dialysis tomorrow. Blood pressure borderline. Continue per consultants. August 03: Patient remains intubated on ventilator. Transfused yesterday. Leukocytosis worsened. Blood pressure 90 systolic. Will start on midodrine. Continue per consultants. Check lab tomorrow. August 02: Discussed with RN. Patient due for transfusion due to rectal bleed. No dialysis scheduled today. Optimize cardiac and pulmonary status. Dialysis as needed. August 01: Discussed with RN. Patient had dry ultrafiltration yesterday. Patient will have dialysis and ultrafiltration today. Labs reviewed. Continue per consultants. July 31: Discussed with RN. Discussed with balance sheet analyst. Chest x-ray still looks wet. Despite of having been dialyzed yesterday we arrange for dialysis and ultrafiltration today and probably tomorrow. Labs reviewed. Per orders. July 30: Patient on dialysis now. Tolerating well. Labs and medications reviewed. Continue per consultants. Hemoglobin mid sevens. On 10,000 units of Epogen. Transfusion if needed. July 29: Dialyzed yesterday. Due for dialysis tomorrow. Labs reviewed. Iron panel ordered. Epogen dose increased. Continue per consultants. Vitamin D level pending July 28: Patient is about to get started on dialysis. Labs reviewed. Blood pressure 90 to 100 systolic. Continue per consultants. July 27: Patient dialyzed July 26. Labs reviewed. Status quo. Dialysis again in a.m. July 26: Patient was dialyzed this morning. Labs reviewed. Remains intubated on ventilator. Full code. Tachycardic. Continue per consultants. Per orders. July 25: Patient was dialyzed yesterday. 2 L ultrafiltrate it. Discussed with hazardous waste material technician today. Attempts at weaning is being tried. Patient will be dialyzed again tomorrow. In view of ejection fraction of 40 to 45% and low blo od pressure will adjust the blood pressure medication dosages and give 0.25 mg digoxin IV once. Continue to monitor renal parameters. July 24: Due for dialysis today. Labs reviewed. Low phosphorus replaced. Continue pulmonary support and ID management. Medication list reviewed. BP medication adjusted. July 23: Dialyzed yesterday. Labs reviewed. ABG noted. Patient hypoxic. Vent setting adjusted by hazardous waste material technician. Continue current care. Dialysis tomorrow. July 22: Patient on ventilator requiring positive end expiratory pressure. Labs reviewed. Blood sugar elevated. Levemir insulin ordered. Dialysis today. Continue per consultants. July 21: Patient now in ICU. Intubated on ventilator. Was dialyzed. Blood pressure well maintained. Has NG tube. Will start medication through NG tube and start feeding. Continue per consultants. Hemodialysis as needed. July 20: Patient seen and examined. Discussed with RN. Remains encephalopathic. Poor ABG results. Patient at high risk at this stage. We will transfer patients to ICU for possible airway support. Patient due for dialysis today. Hyperkalemia probably secondary to acidosis. Will arrange for NG tube insertion and give medication through NG tube. July 19: Mental status appears slightly improved. Was dialyzed 2 days in a row. Blood pressure medication adjusted. Next dialysis tomorrow. Continue per consultants. July 18: Patient encephalopathic, was dialyzed yesterday and had 3 L removed. Will order dialysis again today. Continue per ID. Blood pressure medication adjusted. July 17: Stat hemodialysis ordered. Kayexalate for high potassium. Pulmonary support with oxygen or BiPAP as needed Blood pressure support with proper parameters Per orders Objective Objective Last 24 Hour Vital Signs Date Time Temp Pulse Resp B/P (MAP) Pulse Ox O2 Delivery O2 Flow Rate FiO2 08/08/20 11:43 100 08/08/20 11:00 102/39 08/08/20 10:45 103 18 104/40 (61) 92 08/08/20 10:30 101 16 106/39 (61) 94 08/08/20 10:15 100 16 104/39 (60) 92 08/08/20 10:00 97 17 102/39 (60) 99 08/08/20 09:30 100 105/40 (61) 08/08/20 09:15 104 18 104/40 (61) 99 08/08/20 09:00 106 18 107/38 (61) 100 08/08/20 08:45 97 20 103/40 (61) 100 08/08/20 08:30 117 20 100/43 (62) 100 08/08/20 08:28 127/40 08/08/20 08:15 101 20 118/45 (69) 100 08/08/20 08:03 101 08/08/20 08:00 70 08/08/20 08:00 100.3 102 20 127/40 (69) 100 08/08/20 08:00 Mechanical Ventilator 08/08/20 07:30 100 20 116/37 (63) 100 08/08/20 07:00 97 20 115/41 (65) 100 08/08/20 06:00 159 20 111/46 (67) 08/08/20 05:34 70/38 08/08/20 05:30 83 21 70/38 (49) 93 08/08/20 05:00 90 24 68/41 (50) 93 08/08/20 04:30 135 31 89/39 (56) 95 08/08/20 04:00 100 08/08/20 04:00 108 08/08/20 04:00 100.5 132 24 109/55 (73) 95 08/08/20 04:00 Mechanical Ventilator 08/08/20 03:30 122 25 105/42 (63) 95 08/08/20 03:17 125 24 80 08/08/20 03:00 124 23 108/48 (68) 95 08/08/20 02:30 132 20 114/48 (70) 95 08/08/20 02:00 135 20 84/45 (58) 96 08/08/20 01:30 152 21 123/64 (83) 96 08/08/20 01:00 130 20 120/50 (73) 96 08/08/20 00:30 118 22 104/55 (71) 95 08/08/20 00:00 110 08/08/20 00:00 98.2 122 19 123/44 (70) 96 08/08/20 00:00 Mechanical Ventilator 08/08/20 00:00 80 08/07/20 23:45 117 20 122/53 (76) 96 08/07/20 23:30 112 19 121/47 (71) 96 08/07/20 23:15 116 21 115/45 (68) 98 08/07/20 23:12 122 20 80 08/07/20 23:00 100 21 115/44 (67) 96 08/07/20 22:45 107 18 117/40 (65) 96 08/07/20 22:30 113 21 133/55 (81) 96 08/07/20 22:00 118 23 143/52 (82) 96 08/07/20 21:30 115 21 140/42 (74) 97 08/07/20 21:15 97 20 127/48 (74) 97 08/07/20 21:05 77/36 08/07/20 21:00 90 23 110/52 (71) 96 08/07/20 20:30 100 18 99/38 (58) 97 08/07/20 20:00 Mechanical Ventilator 08/07/20 20:00 80 08/07/20 20:00 99.0 93 23 81/39 (53) 95 08/07/20 20:00 113 08/07/20 19:09 118 26 80 08/07/20 19:00 120 18 92/50 (64) 95 08/07/20 18:00 148 19 107/38 (61) 96 08/07/20 17:00 123 24 127/96 (106) 97 08/07/20 16:00 Mechanical Ventilator 08/07/20 16:00 99.0 100 19 107/46 (66) 98 08/07/20 16:00 80 08/07/20 16:00 118 08/07/20 15:18 107 21 80 08/07/20 15:00 94 18 121/43 (69) 96 08/07/20 14:00 100 21 119/42 (67) 97 08/07/20 13:00 107 20 109/43 (65) 95 08/07/20 12:48 100.3 Intake and Output 08/07/20 08/08/20 19:00 07:00 Intake Total 570.0 ml 1132.50 ml Output Total 250 ml 50 ml Balance 320.0 ml 1082.50 ml Free Water 90 ml IV Total 90.0 ml 532.50 ml Tube Feeding 480 ml 510 ml Stool Total 250 ml 50 ml Laboratory Tests 08/07/20 13:06: POC Whole Blood Glucose 150H 08/07/20 17:02: POC Whole Blood Glucose 184H 08/07/20 20:34: POC Whole Blood Glucose 125H 08/08/20 00:11: POC Whole Blood Glucose 170H 08/08/20 03:45: White Blood Count 8.8, Red Blood Count 2.34L, Hemoglobin 8.6L, Hematocrit 24.0L, Mean Corpuscular Volume 103H, Mean Corpuscular Hemoglobin 37.0H, Mean Corpuscular Hemoglobin Concent 36.1H, Red Cell Distribution Width 17.1H, Platelet Count 93L, Mean Platelet Volume 10.3H, Neutrophils (%) (Auto) , Lymphocytes (%) (Auto) , Monocytes (%) (Auto) , Eosinophils (%) (Auto) , Basophils (%) (Auto) , Differential Total Cells Counted 100, Neutrophils % (Manual) 83H, Lymphocytes % (Manual) 6L, Monocytes % (Manual) 5, Eosinophils % (Manual) 0, Basophils % (Manual) 0, Band Neutrophils 6, Nucleated Red Blood Cells 17, Platelet Estimate DecreasedL, Platelet Morphology Normal, Polychrom leodan 1+, Hypochromasia 1+, Anisocytosis 1+, Macrocytosis 1+, Sodium Level 139, Potassium Level 4.7, Chloride Level 95L, Carbon Dioxide Level 19L, Anion Gap 25H , Blood Urea Nitrogen 114H, Creatinine 5.0H, Estimat Glomerular Filtration Rate 8.5, Glucose Level 103, Calcium Level 10.3H, Phosphorus Level 7.9H, Magnesium Level 2.1, Total Bilirubin 3.4H, Direct Bilirubin 2.9H, Aspartate Amino Transf (AST/SGOT) 82H, Alanine Aminotransferase (ALT/SGPT) 13, Alkaline Phosphatase 232H, C-Reactive Protein, Quantitative [Pending], Pro-B-Type Natriuretic Peptide > 10886Z, Total Protein 6.4, Albumin 1.8L, Globulin 4.6, Albumin/Globulin Ratio 0.4L 08/08/20 05:16: POC Whole Blood Glucose 73L 08/08/20 05:19: POC Whole Blood Glucose [Pending] 08/08/20 08:34: POC Whole Blood Glucose [Pending] 08/08/20 09:03: POC Whole Blood Glucose 109H 08/08/20 11:26: Arterial Blood pH 6.809*L, Arterial Blood Partial Pressure CO2 57.6*H, Arterial Blood Partial Pressure O2 83.0, Arterial Blood HCO3 8.9*L, Arterial Blood Oxygen Saturation 85.4*L, Arterial Blood Base Excess -24.5*L, Faheem Test Positive Height (Feet): 5 Height (Inches): 4.00 Weight (Pounds): 180 Francis Falk MD Aug 08, 2020 12:31
--- NOTE | 2020-08-08 12:35 | NUR ---
[facility] Nephrology called - spoke with Timo -HD cancelled for today as ordered by Dr. Falk
[2020-08-08] MEDS ORDERED: Solu-MEDROL 125mg Inj IVP SCH (12:45)
--- NOTE | 2020-08-08 12:58 | NUR ---
NURSE NOTES: Dr. Falk made aware of low BP despite of Levophed at 30 mcg and Phenylephrine at 240 mcg and made aware HR dropped to 38/min- with new order given
[2020-08-08] MEDS ORDERED: Phenylephrine 50 MG in D5W 245 ML IV SCH (13:00)
[2020-08-08] MEDS ORDERED: DOPamine 400mg/250ml 250 ML IV SCH (13:00)
--- NOTE | 2020-08-08 13:06 | NUR ---
CAROL MACDONALD: See Code sheet which remains on paper. Patient Asystole in facing machine operator, Remains mechanical ventilator dependent, Vent FiO2 of 100%. ACLS provided. CPR started and epinephrine given at 1306. Carol macdonald steam setter by Dr. Friedman. Airborne isolation precautions observed.
--- NOTE | 2020-08-08 13:06 | NUR ---
RESPIRATORY NOTES Code blue called @1306 Compressions began by RN, followed by the RT's. PT left on ventilator throughout code - ambubag was not used due to PT being Covid+. ROSC was not successful. PT pronounced by ER .
--- NOTE | 2020-08-08 13:12 | NUR ---
NURSE NOTES: Message left to Dr. Daniel voice mail that patient is being Coded at this time
[2020-08-08] MEDS ORDERED: Calcium Chloride 10% 10ml carpuject IVP ONE (13:15)
[2020-08-08] MEDS ORDERED: D5W 275ml ONE (13:15)
[2020-08-08] MEDS ORDERED: Sodium Bicarbonate 8.4% 50ml Inj ONE (13:15)
[2020-08-08] MEDS ORDERED: Magnesium Sulfate 2ml Inj ONE (13:15)
[2020-08-08] MEDS ORDERED: NS 275ml ONE ×2 (13:15)
[2020-08-08] MEDS ORDERED: Tubing IV Secondary IV ONE ×2 (13:15)
[2020-08-08] MEDS ORDERED: Amiodarone 150mg/3ml Amp ONE (13:15)
--- NOTE | 2020-08-08 13:16 | NUR ---
NURSE NOTES: Code blue done. Patient pronounced by Dr. Friedman at 1316. Will inform Dr. Daniel.
--- NOTE | 2020-08-08 13:30 | NUR ---
NURSE NOTES Called [facility] and spoke to Anabel. , stated that patient can be released.
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
[2020-08-08] MEDS ORDERED: Sodium Bicarbonate 100 ML in D5NS 1,000 ML IV SCH (14:00)
[2020-08-08] MEDS ORDERED: Hydrocortisone 100mg Inj IV SCH (14:00)
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
--- NOTE | 2020-08-08 15:01 | Pulmonology Progress Note ---
Subjective ROS Limited/Unobtainable: Yes Interval Events: FiO2 better Constitutional: Reports: fever, other - Gy=512.4 in am HEENT: Repors: no symptoms Respiratory: Reports: no symptoms Cardiovascular: Reports: no symptoms Gastrointestinal/Abdominal: Reports: other Genitourinary: Reports: no symptoms Allergies: Coded Allergies: No Known Allergies (Unverified , 05/12/17) All Systems: reviewed and negative except above Objective Last 24 Hour Vital Signs Date Time Temp Pulse Resp B/P (MAP) Pulse Ox O2 Delivery O2 Flow Rate FiO2 08/08/20 13:16 0 08/08/20 13:06 0 08/08/20 13:02 53/27 08/08/20 13:00 72 43 53/27 (36) 91 08/08/20 12:50 72 18 55/33 (40) 86 08/08/20 12:40 72 14 50/28 (35) 88 08/08/20 12:40 55 50/28 08/08/20 12:30 61 19 50/28 (35) 91 08/08/20 12:30 50/28 08/08/20 12:20 64/28 08/08/20 12:20 81 17 64/28 (40) 93 08/08/20 12:15 71/34 08/08/20 12:10 82 19 71/34 (46) 96 08/08/20 12:00 Mechanical Ventilator 08/08/20 12:00 96 18 115/35 (61) 98 08/08/20 12:00 115/35 08/08/20 12:00 125 08/08/20 11:45 100 08/08/20 11:43 100 08/08/20 11:30 98 17 92/30 (50) 93 08/08/20 11:15 98 17 98/36 (56) 93 08/08/20 11:00 102 18 104/40 (61) 92 08/08/20 11:00 102/39 08/08/20 10:45 103 18 104/40 (61) 92 08/08/20 10:30 101 16 106/39 (61) 94 08/08/20 10:15 100 16 104/39 (60) 92 08/08/20 10:00 97 17 102/39 (60) 99 08/08/20 09:30 100 105/40 (61) 08/08/20 09:15 104 18 104/40 (61) 99 08/08/20 09:00 106 18 107/38 (61) 100 08/08/20 08:45 97 20 103/40 (61) 100 08/08/20 08:30 117 20 100/43 (62) 100 08/08/20 08:28 127/40 08/08/20 08:15 101 20 118/45 (69) 100 08/08/20 08:03 101 08/08/20 08:00 70 08/08/20 08:00 100.3 102 20 127/40 (69) 100 08/08/20 08:00 Mechanical Ventilator 08/08/20 07:30 100 20 116/37 (63) 100 08/08/20 07:30 102 20 80 08/08/20 07:00 97 20 115/41 (65) 100 08/08/20 06:00 159 20 111/46 (67) 08/08/20 05:34 70/38 08/08/20 05:30 83 21 70/38 (49) 93 08/08/20 05:00 90 24 68/41 (50) 93 08/08/20 04:30 135 31 89/39 (56) 95 08/08/20 04:00 100 08/08/20 04:00 108 08/08/20 04:00 100.5 132 24 109/55 (73) 95 08/08/20 04:00 Mechanical Ventilator 08/08/20 03:30 122 25 105/42 (63) 95 08/08/20 03:17 125 24 80 08/08/20 03:00 124 23 108/48 (68) 95 08/08/20 02:30 132 20 114/48 (70) 95 08/08/20 02:00 135 20 84/45 (58) 96 08/08/20 01:30 152 21 123/64 (83) 96 08/08/20 01:00 130 20 120/50 (73) 96 08/08/20 00:30 118 22 104/55 (71) 95 08/08/20 00:00 110 08/08/20 00:00 98.2 122 19 123/44 (70) 96 08/08/20 00:00 Mechanical Ventilator 08/08/20 00:00 80 08/07/20 23:45 117 20 122/53 (76) 96 08/07/20 23:30 112 19 121/47 (71) 96 08/07/20 23:15 116 21 115/45 (68) 98 08/07/20 23:12 122 20 80 08/07/20 23:00 100 21 115/44 (67) 96 08/07/20 22:45 107 18 117/40 (65) 96 08/07/20 22:30 113 21 133/55 (81) 96 08/07/20 22:00 118 23 143/52 (82) 96 08/07/20 21:30 115 21 140/42 (74) 97 08/07/20 21:15 97 20 127/48 (74) 97 08/07/20 21:05 77/36 08/07/20 21:00 90 23 110/52 (71) 96 08/07/20 20:30 100 18 99/38 (58) 97 08/07/20 20:00 Mechanical Ventilator 08/07/20 20:00 80 08/07/20 20:00 99.0 93 23 81/39 (53) 95 08/07/20 20:00 113 08/07/20 19:09 118 26 80 08/07/20 19:00 120 18 92/50 (64) 95 08/07/20 18:00 148 19 107/38 (61) 96 08/07/20 17:00 123 24 127/96 (106) 97 08/07/20 16:00 Mechanical Ventilator 08/07/20 16:00 99.0 100 19 107/46 (66) 98 08/07/20 16:00 80 08/07/20 16:00 118 08/07/20 15:18 107 21 80 08/07/20 15:00 94 18 121/43 (69) 96 Intake and Output 08/07/20 08/08/20 19:00 07:00 Intake Total 570.0 ml 1132.50 ml Output Total 250 ml 50 ml Balance 320.0 ml 1082.50 ml Free Water 90 ml IV Total 90.0 ml 532.50 ml Tube Feeding 480 ml 510 ml Stool Total 250 ml 50 ml General Appearance: WD/WN, no acute distress, other - intubation HEENT: normocephalic Respiratory: chest wall non-tender, crackles/rales Cardiovascular: normal rate, regular rhythm Laboratory Tests 08/07/20 17:02: POC Whole Blood Glucose 184H 08/07/20 20:34: POC Whole Blood Glucose 125H 08/08/20 00:11: POC Whole Blood Glucose 170H 08/08/20 03:45: White Blood Count 8.8, Red Blood Count 2.34L, Hemoglobin 8.6L, Hematocrit 24.0L, Mean Corpuscular Volume 103H, Mean Corpuscular Hemoglobin 37.0H, Mean Corpus cular Hemoglobin Concent 36.1H, Red Cell Distribution Width 17.1H, Platelet Count 93L, Mean Platelet Volume 10.3H, Neutrophils (%) (Auto) , Lymphocytes (%) (Auto) , Monocytes (%) (Auto) , Eosinophils (%) (Auto) , Basophils (%) (Auto) , Differential Total Cells Counted 100, Neutrophils % (Manual) 83H, Lymphocytes % (Manual) 6L, Monocytes % (Manual) 5, Eosinophils % (Manual) 0, Basophils % (Manual) 0, Band Neutrophils 6, Nucleated Red Blood Cells 17, Platelet Estimate DecreasedL, Platelet Morphology Normal, Polychromasia 1+, Hypochromasia 1+, Anisocytosis 1+, Macrocytosis 1+, Sodium Level 139, Potassium Level 4.7, C hloride Level 95L, Carbon Dioxide Level 19L, Anion Gap 25H, Blood Urea Nitrogen 114H, Creatinine 5.0H, Estimat Glomerular Filtration Rate 8.5, Glucose Level 103, Calcium Level 10.3H, Phosphorus Level 7.9H, Magnesium Level 2.1, Total Bili padgett 3.4H, Direct Bilirubin 2.9H, Aspartate Amino Transf (AST/SGOT) 82H, Al anine Aminotransferase (ALT/SGPT) 13, Alkaline Phosphatase 232H, C-Reactive Protein, Quantitative [Pending], Pro-B-Type Natriuretic Peptide > 28047X, Total Protein 6.4, Albumin 1.8L, Globulin 4.6, Albumin/Globulin Ratio 0.4L 08/08/20 05:16: POC Whole Blood Glucose 73L 08/08/20 05:19: POC Whole Blood Glucose [Pending] 08/08/20 08:34: POC Whole Blood Glucose [Pending] 08/08/20 09:03: POC Whole Blood Glucose 109H 08/08/20 11:26: Arterial Blood pH 6.809*L, Arterial Blood Partial Pressure CO2 57.6*H, Arterial Blood Partial Pressure O2 83.0, Arterial Blood HCO3 8.9*L, Arterial Blood Oxygen Saturation 85.4*L, Arterial Blood Base Excess -24.5*L, Faheem Test Positive 08/08/20 12:43: POC Whole Blood Glucose 11*L 08/08/20 13:07: POC Whole Blood Glucose [Pending] Current Medications Medications (Trade) Dose Ordered Sig/Toya Route PRN Reason Start Time Stop Time Status Last Admin Dose Admin Acetaminophen (Tylenol) 650 mg EVERY 6 HOURS PRN NG Mild Pain (Pain Scale 1-3) 07/29/20 09:05 08/28/20 09:04 08/07/20 12:18 Acetaminophen (Tylenol) 650 mg EVERY 6 HOURS PRN NG Temp >100.5 07/29/20 09:15 08/28/20 09:14 08/02/20 08:17 Chlorhexidine Gluconate (Yessi-Hex 2%) 1 applic DAILY@2000 TOPIC 07/21/20 20:00 10/19/20 19:59 08/07/20 20:28 Dextrose (Dextrose 50%) 25 ml Q30M PRN IV Hypoglycemia 07/22/20 08:00 10/20/20 07:59 08/04/20 18:19 Dextrose (Dextrose 50%) 50 ml Q30M PRN IV Hypoglycemia 07/22/20 08:00 10/20/20 07:59 08/08/20 12:47 Dopamine HCl/ Dextrose 250 ml @ 0 mls/hr Q24H IV 08/08/20 13:00 08/11/20 12:58 08/08/20 13:02 Epoetin Panchito (Epoetin Panchito(ESRD on dialysis)) 2,000 unit SUBQ 08/03/20 21:00 11/01/20 20:59 08/06/20 20:45 Epoetin Panchito (Epoetin Panchito(ESRD on dialysis)) 8,000 unit SUBQ 08/03/20 21:00 11/01/20 20:59 08/06/20 20:44 Hydrocortisone (Solu-CORTEF) 100 mg EVERY 8 HOURS IV 08/08/20 14:00 11/06/20 13:59 Insulin Aspart (NovoLOG) Q6HR SUBQ 07/22/20 08:15 10/20/20 11:29 08/08/20 00:20 Loperamide HCl (Imodium) 2 mg Q6H PRN NG Diarrhea 07/29/20 15:45 08/28/20 15:44 Norepinephrine Bitartrate 8 mg/ Dextrose 250 ml @ 0 mls/hr Q24H IV 08/08/20 10:00 08/11/20 09:59 08/08/20 11:00 Pantoprazole (Protonix) 40 mg EVERY 12 HOURS IVP 07/21/20 21:00 08/20/20 20:59 08/07/20 20:42 Phenylephrine HCl 50 mg/Dextrose 250 ml @ 0 mls/hr Q24H IV 08/08/20 13:00 08/11/20 12:59 08/08/20 12:40 Sodium Bicarbonate 100 ml/Dextrose/ Sodium Chloride 1,100 ml @ 75 mls/hr [id number] IV 08/08/20 14:00 09/07/20 13:59 Vitamin D (Vitamin D) 5,000 unit DAILY ORAL 07/29/20 09:00 08/28/20 08:59 08/07/20 09:28 Assessment/Plan Assessment/Plan Assessment/Plan 1. COVID-19 pneumonia. - on Abx 2. COPD 3. Pneumonia 4. Hypertensive emergency. 5. Leukocytosis. 6. Anemia. 7. Hyponatremia. 8. Hyperkalemia. 9. Hypochloridemia. 10. Hyperglycemia. 11. ESRD, on dialysis. 12. Respiratory failure; intubated PLAN Continue O2; currently 70% Vent; AC mode On PEEP now 10 ABG shows severe metabolic acidosis; Bicarb supplementation ordered CXR 08/03 improvement in mild to moderate diffuse bilateral alveolar infiltrates since the prior study Discussed with Dr Falk Will attempt wean when FiO2 and PEEP are lower Levy Allen,Levy Jenkins MD Aug 08, 2020 15:01
--- NOTE | 2020-08-08 15:21 | Emergency Room Report ---
History of Present Illness General Chief Complaint: Dyspnea/Respdistress Source: Medical Record Present Illness HPI I responded to CODE BLUE overhead in ICU Patient is a 70-year-old female admitted to ICU for acute hypoxemic respiratory failure secondary to COVID-19 pneumonia. According to the nurse, she remained hypotensive despite being maxed out on 3 pressors, and bradycardy'd down until she coded. Also hypoxic. Accu-Chek was 11. ABG showed critical metabolic acidosis 2 rounds of epinephrine have been administered prior to my arrival. Dextrose x2 and bicarb given prior to my arrival. Unfortunately, despite our best efforts, patient . Please see nursing documentation for time of and list of medications given. RN to notify primary team to have talk with family Procedure note Cardiopulmonary Resuscitation by me: See code documentation for specific details. ACLS and BLS were performed with high quality chest compressions and minimal interruptions. Any reversible causes were assessed and treated. Indication: Pulseless/CODE BLUE Informed consent: Patient unable to consent and no DNR status on record Procedure: Cardiac compressions were performed by staff in order to sustain blood flow under my direct supervision. The patient was ventilated and oxygenated. The patient received appropriate ACLS measures and they were repeated as necessary. 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 COVID-19 Screening: Positive COVID-19 COVID-19 Testing Source: na Nursing Documentation-[facility] Hx Cardiac Problems: Yes - CHF, HTN Hx Hypertension: Yes Hx Pacemaker: No Hx Asthma: Yes Hx COPD: Yes Hx Diabetes: Yes Hx Cancer: No Hx Dialysis: Yes - M [facility] F-LAST DIALYSIS 07/06/2019 Hx Neurological Problems: Yes Hx Transient Ischemic Attacks: Yes - ACUTE ISCHEMIC HEART DISEASE Hx Dementia: No Hx Alzheimer's Disease: No Hx Parkinson's Disease: No Hx Meningitis: No Hx Encephalitis: No Hx Seizures: No Hx Epilepsy: No Hx Multiple Sclerosis: No Hx Cerebral Palsy: No Hx Amyotrophic Lat Sclerosis: No Hx Guillian-[place] Syndrome: No Hx Paralysis: No Hx Peripheral Neuropathy: No Hx Spinal Cord Injury: No Hx Head Trauma: No Hx Traumatic Brain Injury: No Hx Memory Loss: No Hx Concentration Difficulty: No Hx Speech Problem: No Hx Tremors: No Hx Vertigo: Yes Hx Dizziness: No Hx Syncope: No Hx Headaches: No Hx Aphasia: No Hx Dysphasia: No Hx Numbness: No Hx Weakness: Yes Hx Fatigue: No Hx Neurologic Surgery: No Hx Brain Shunt: No Physical Exam Vital Signs Date Time Temp Pulse Resp B/P (MAP) Pulse Ox O2 Delivery O2 Flow Rate FiO2 08/04/20 07:00 120 20 152/69 (96) 100 08/04/20 07:16 100 08/04/20 08:00 Mechanical Ventilator 08/04/20 08:00 100.4 Sp02 EP Interpretation: reviewed, abnormal Medical Decision Making Diagnostic Impression: Primary Impression: Cardiopulmonary arrest Additional Impressions: Sepsis with acute hypoxic respiratory failure Septic shock Acute hypoxemic respiratory failure Hypoxia Hypoglycemia Metabolic acidosis Last Vital Signs Date Time Temp Pulse Resp B/P (MAP) Pulse Ox O2 Delivery O2 Flow Rate FiO2 08/08/20 13:16 0 08/08/20 13:02 53/27 08/08/20 13:00 43 91 08/08/20 12:00 Mechanical Ventilator 08/08/20 11:45 100 08/08/20 08:00 100.3 Disposition: Admit Decision Time: 13:07 Condition: Referrals: Makenna Daniel MD (PCP) Lorena Friedman D.O. Aug 08, 2020 15:21
--- NOTE | 2020-08-08 16:13 | Cardiac Electrophysiology PN ---
Assessment/Plan Assessment/Plan 1. Septic shock. Maxed out on 3 pressors and Midodrine 15 tid 2. Atrial fib with RVR with HR up to 180s with agitation. 3. ESRD, on hemodialysis. 4. Hyponatremia, sodium 129. 5. Volume overload, BNP of more than 35,000 and EF 40-45%. 6. Covid PNA and resp failure Covid positive 07/11 and 07/17 7. Rectal bleeding. S/P PRBC . DW RN after Code and 2 rounds of epinephrine, Dextrose x2 and bicarb today Subjective Subjective In Covid isolation. Was intubated on 100% Fio2 and PEEP 10 Was Maxed out on 3 pressors. Coded for bradycardia with HR dropping to 30 and then flat lined and Objective Last 24 Hour Vital Signs Date Time Temp Pulse Resp B/P (MAP) Pulse Ox O2 Delivery O2 Flow Rate FiO2 08/08/20 13:16 0 08/08/20 13:06 0 08/08/20 13:02 53/27 08/08/20 13:00 72 43 53/27 (36) 91 08/08/20 12:50 72 18 55/33 (40) 86 08/08/20 12:40 72 14 50/28 (35) 88 08/08/20 12:40 55 50/28 08/08/20 12:30 61 19 50/28 (35) 91 08/08/20 12:30 50/28 08/08/20 12:20 64/28 08/08/20 12:20 81 17 64/28 (40) 93 08/08/20 12:15 71/34 08/08/20 12:10 82 19 71/34 (46) 96 08/08/20 12:00 Mechanical Ventilator 08/08/20 12:00 96 18 115/35 (61) 98 08/08/20 12:00 115/35 08/08/20 12:00 125 08/08/20 11:45 100 08/08/20 11:43 100 08/08/20 11:30 98 17 92/30 (50) 93 08/08/20 11:15 98 17 98/36 (56) 93 08/08/20 11:00 102 18 104/40 (61) 92 08/08/20 11:00 102/39 08/08/20 10:45 103 18 104/40 (61) 92 08/08/20 10:30 101 16 106/39 (61) 94 08/08/20 10:15 100 16 104/39 (60) 92 08/08/20 10:00 97 17 102/39 (60) 99 08/08/20 09:30 100 105/40 (61) 08/08/20 09:15 104 18 104/40 (61) 99 08/08/20 09:00 106 18 107/38 (61) 100 08/08/20 08:45 97 20 103/40 (61) 100 08/08/20 08:30 117 20 100/43 (62) 100 08/08/20 08:28 127/40 08/08/20 08:15 101 20 118/45 (69) 100 08/08/20 08:03 101 08/08/20 08:00 70 08/08/20 08:00 100.3 102 20 127/40 (69) 100 08/08/20 08:00 Mechanical Ventilator 08/08/20 07:30 100 20 116/37 (63) 100 08/08/20 07:30 102 20 80 08/08/20 07:00 97 20 115/41 (65) 100 08/08/20 06:00 159 20 111/46 (67) 08/08/20 05:34 70/38 08/08/20 05:30 83 21 70/38 (49) 93 08/08/20 05:00 90 24 68/41 (50) 93 08/08/20 04:30 135 31 89/39 (56) 95 08/08/20 04:00 100 08/08/20 04:00 108 08/08/20 04:00 100.5 132 24 109/55 (73) 95 08/08/20 04:00 Mechanical Ventilator 08/08/20 03:30 122 25 105/42 (63) 95 08/08/20 03:17 125 24 80 08/08/20 03:00 124 23 108/48 (68) 95 08/08/20 02:30 132 20 114/48 (70) 95 08/08/20 02:00 135 20 84/45 (58) 96 08/08/20 01:30 152 21 123/64 (83) 96 08/08/20 01:00 130 20 120/50 (73) 96 08/08/20 00:30 118 22 104/55 (71) 95 08/08/20 00:00 110 08/08/20 00:00 98.2 122 19 123/44 (70) 96 08/08/20 00:00 Mechanical Ventilator 08/08/20 00:00 80 08/07/20 23:45 117 20 122/53 (76) 96 08/07/20 23:30 112 19 121/47 (71) 96 08/07/20 23:15 116 21 115/45 (68) 98 08/07/20 23:12 122 20 80 08/07/20 23:00 100 21 115/44 (67) 96 08/07/20 22:45 107 18 117/40 (65) 96 08/07/20 22:30 113 21 133/55 (81) 96 08/07/20 22:00 118 23 143/52 (82) 96 08/07/20 21:30 115 21 140/42 (74) 97 08/07/20 21:15 97 20 127/48 (74) 97 08/07/20 21:05 77/36 08/07/20 21:00 90 23 110/52 (71) 96 08/07/20 20:30 100 18 99/38 (58) 97 08/07/20 20:00 Mechanical Ventilator 08/07/20 20:00 80 08/07/20 20:00 99.0 93 23 81/39 (53) 95 08/07/20 20:00 113 08/07/20 19:09 118 26 80 08/07/20 19:00 120 18 92/50 (64) 95 08/07/20 18:00 148 19 107/38 (61) 96 08/07/20 17:00 123 24 127/96 (106) 97 Intake and Output 08/07/20 08/08/20 19:00 07:00 Intake Total 570.0 ml 1132.50 ml Output Total 250 ml 50 ml Balance 320.0 ml 1082.50 ml Free Water 90 ml IV Total 90.0 ml 532.50 ml Tube Feeding 480 ml 510 ml Stool Total 250 ml 50 ml Laboratory Tests Test 08/07/20 17:02 08/07/20 20:34 08/08/20 00:11 08/08/20 03:45 POC Whole Blood Glucose 184 MG/DL (74-106) H 125 MG/DL (74-106) H 170 MG/DL (74-106) H White Blood Count 8.8 K/UL (4.8-10.8) Red Blood Count 2.34 M/UL (4.20-5.40) L Hemoglobin 8.6 G/DL (12.0-16.0) L Hematocrit 24.0 % (37.0-47.0) L Mean Corpuscular Volume 103 FL (80-99) H Mean Corpuscular Hemoglobin 37.0 PG (27.0-31.0) H Mean Corpuscular Hemoglobin Concent 36.1 G/DL (32.0-36.0) H Red Cell Distribution Width 17.1 % (11.6-14.8) H Platelet Count 93 K/UL (150-450) L Mean Platelet Volume 10.3 FL (6.5-10.1) H Neutrophils (%) (Auto) % (45.0-75.0) Lymphocytes (%) (Auto) % (20.0-45.0) Monocytes (%) (Auto) % (1.0-10.0) Eosinophils (%) (Auto) % (0.0-3.0) Basophils (%) (Auto) % (0.0-2.0) Differential Total Cells Counted 100 Neutrophils % (Manual) 83 % (45-75) H Lymphocytes % (Manual) 6 % (20-45) L Monocytes % (Manual) 5 % (1-10) Eosinophils % (Manual) 0 % (0-3) Basophils % (Manual) 0 % (0-2) Band Neutrophils 6 % (0-8) Nucleated Red Blood Cells 17 /100 WBC Platelet Estimate Decreased L Platelet Morphology Normal Polychromasia 1+ Hypochromasia 1+ Anisocytosis 1+ Macrocytosis 1+ Sodium Level 139 MMOL/L (136-145) Potassium Level 4.7 MMOL/L (3.5-5.1) Chloride Level 95 MMOL/L (98-107) L Carbon Dioxide Level 19 MMOL/L (21-32) L Anion Gap 25 mmol/L (5-15) H Blood Urea Nitrogen 114 mg/dL (7-18) H Creatinine 5.0 MG/DL (0.55-1.30) H Estimat Glomerular Filtration Rate 8.5 mL/min (>60) Glucose Level 103 MG/DL (74-106) Calcium Level 10.3 MG/DL (8.5-10.1) H Phosphorus Level 7.9 MG/DL (2.5-4.9) H Magnesium Level 2.1 MG/DL (1.8-2.4) Total Bilirubin 3.4 MG/DL (0.2-1.0) H Direct Bilirubin 2.9 MG/DL (0.0-0.3) H Aspartate Amino Transf (AST/SGOT) 82 U/L (15-37) H Alanine Aminotransferase (ALT/SGPT) 13 U/L (12-78) Alkaline Phosphatase 232 U/L (46-116) H C-Reactive Protein, Quantitative Pending Pro-B-Type Natriuretic Peptide > 17786 pg/mL (0-125) H Total Protein 6.4 G/DL (6.4-8.2) Albumin 1.8 G/DL (3.4-5.0) L Globulin 4.6 g/dL Albumin/Globulin Ratio 0.4 (1.0-2.7) L Test 08/08/20 05:16 08/08/20 05:19 08/08/20 08:34 08/08/20 09:03 POC Whole Blood Glucose 73 MG/DL (74-106) L Pending Pending 109 MG/DL (74-106) H Test 08/08/20 11:26 08/08/20 12:43 08/08/20 13:07 Arterial Blood pH 6.809 (7.350-7.450) Arterial Blood Partial Pressure CO2 57.6 mmHg (35.0-45.0) *H Arterial Blood Partial Pressure O2 83.0 mmHg (75.0-100.0) Arterial Blood HCO3 8.9 mmol/L (22.0-26.0) *L Arterial Blood Oxygen Saturation 85.4 % (95-100) *L Arterial Blood Base Excess -24.5 (-2-2) *L Faheem Test Positive POC Whole Blood Glucose 11 MG/DL (74-106) *L Pending Objective Zev Gatica MD Aug 08, 2020 16:13
--- NOTE | 2020-08-10 16:19 | Discharge Summary ---
Discharge Summary Discharge Summary _ Date of admission: 07/16/2020 Date of expiration: 08/08/2020 History of Present Illness and Brief Hospital Course Ms. Vasquez was a 70-year-old female with past medical history of hypertension, asthma, COPD, diabetes, GI problems, and end-stage renal disease on dialysis, who was brought in by daughter for increased shortness of breath fever. In the ER, she was found to have elevated blood pressure along with increased respira tory effort and wheezing. She received MDI treatment due to hypoxia secondary to her COVID-19 positive status. She also received clonidine and hydralazine due to severe hypertension. Hemodialysis was immediately started in the ER as well as supplemental oxygen given her hypoxia. Her positive COVID-19 status was confirmed via PCR test. For her COVID-19, patient received Decadron once in the ER. Patient also received this azithromycin and Rocephin for pneumonia coverage. Due to worsening hypoxia, patient was intubated and was provided with ventilator support. She was started on Solu-Medrol. She was transferred to ICU for closer observation. Ventilator setting was adjusted as needed and ABG was closely monitored. For her hypertension, she was started on hydralazine, Cardizem and clonidine. Further evaluation with 2D echocardiogram showed LV ejection fraction of 40-45%. At one point, she was found to have atrial fibrillation with RVR with heart rate up to 180s. She was started on Lopressor. Laboratory study revealed that her potassium was 6.8 the morning after her arrival. However no cardiac arrhythmia was noted despite potassium of 6.8. Patient was immediately started on hemodialysis. She also showed hyponatremia with sodium of 129. Patient was put on fluid restriction. Patient was also volume overloaded with BNP of more than 35,000. Patient was found to have melena and her hemoglobin dropped as low as 6.7. She was provided with transfusion to keep her hemoglobin level above 7. She was also started with Epogen and her hemoglobin and platelet count were closely monitored. She also had history of anemia due to low B12. However her B12 was within normal limits during her admission. Given her elevated LFTs, CT of the abdomen and pelvis was considered but was reserved due to her unstable condition. A repeat abdominal ultrasound revealed coarsened hepatic echogenicity, likely hepatocellular disease. Trace ascites, right pleural effusion, cholelithiasis, gallbladder wall thickening were also de monstrated. Throughout her admission, her prognosis remained poor. On 08/08/2020, her blood pressure and heart rate dropped despite Levophed and phenylephrine. Hemodialysis was canceled. Patient was found to be in asystole and youth nutritional monitor. CAROL KIRKLAND was called. CPR was started and epinephrine given. Unfortunately,ROSC was not achieved despite compressions and the patient was pronounced at 1316. Cause of : Cardiopulmonary arrest Consultants: Cardiology Dr. Gatica Hematology oncology Dr. Daniels Infectious disease Dr. Briseno Nephrology Dr. Henry Psychiatry Dr. Collins Pulmonology Dr. Allen Final diagnoses Septic shock Atrial fibrillation with RVR ESRD on hemodialysis Hyponatremia Volume overload COVID-19 pneumonia Acute respiratory failure Melena Pancytopenia Leukocytosis History of coronary artery disease Acute toxic encephalopathy History of COPD History of asthma History of hypertension Diabetes mellitus with hyperglycemia Systolic heart failure Aortic stenosis Hypercapnic, hypoxemic respiratory failure Cholelithiasis Hepatocellular disease CHF Hypertensive emergency I have been assigned to dictate discharge summary for this account. Agustín Wadsworth Aug 10, 2020 16:19
== END 2020-08-08 13:16 | disposition expired | DRG 207 ==
LOC: EMR 19:34 → 2E 19:41 → EDBEDREQSVC 07-17 05:32 → EDBEDREQ 07-17 05:32 → 2E 07-17 10:51 → ICU 07-18 20:35 → 2E 07-18 23:31 → ICU 07-20 17:42
PROC: 5A1D70Z Performance of Urinary Filtration, Intermittent, Less than 6 Hours Per Day (ICD-10-PCS; principal; 2020-07-16)
PROC: 0BH17EZ Insertion of Endotracheal Airway into Trachea, Via Natural or Artificial Opening (ICD-10-PCS; 2020-07-20)
PROC: 06HM33Z Insertion of Infusion Device into Right Femoral Vein, Percutaneous Approach (ICD-10-PCS; 2020-07-20)
PROC: 5A1955Z Respiratory Ventilation, Greater than 96 Consecutive Hours (ICD-10-PCS; 2020-07-20)
DX: U07.1 COVID-19 (principal); J12.82 Pneumonia due to coronavirus disease 2019; N18.6 End stage renal disease; J96.01 Acute respiratory failure with hypoxia; J96.02 Acute respiratory failure with hypercapnia; G92 Toxic encephalopathy; A41.9 Sepsis, unspecified organism; R65.21 Severe sepsis with septic shock; I13.2 Hypertensive heart and chronic kidney disease with heart failure and with stage 5 chronic kidney disease, or end stage renal disease; I16.1 Hypertensive emergency; J44.1 Chronic obstructive pulmonary disease with (acute) exacerbation; D61.818 Other pancytopenia; I50.20 Unspecified systolic (congestive) heart failure; J44.0 Chronic obstructive pulmonary disease with (acute) lower respiratory infection; K62.5 Hemorrhage of anus and rectum; E87.1 Hypo-osmolality and hyponatremia; E87.5 Hyperkalemia; E11.649 Type 2 diabetes mellitus with hypoglycemia without coma; E11.22 Type 2 diabetes mellitus with diabetic chronic kidney disease; Z99.2 Dependence on renal dialysis; D63.1 Anemia in chronic kidney disease; D72.819 Decreased white blood cell count, unspecified; I35.0 Nonrheumatic aortic (valve) stenosis; E87.8 Other disorders of electrolyte and fluid balance, not elsewhere classified; I48.91 Unspecified atrial fibrillation; K80.20 Calculus of gallbladder without cholecystitis without obstruction
CPT/HCPCS: 36415; 71045; 74018; 76705; 80048; 80053; 80061; 80076; 80162; 82040; 82248; 82270; 82306; 82550; 82553; 82728; 82746; 82803; 82962; 82977; 83036; 83540; 83550; 83605; 83615; 83690; 83735; 83880; 84100; 84443; 84484; 84550; 85007; 85025; 85379; 85610; 85730; 86140; 86706; 86850; 86900; 86901; 86920; 87040; 87070; 87081; 87205; 92950; 93005; 93306; 93970; 94002; 94003; 96374; 99285; C9399; J0171; J1815; J2370; J2430; S5561; U0002